=== PATIENT | female | born 1945 | race Caucasian/White ===

== ENCOUNTER 2018-11-01 06:39 | Day surgery (SDC) | payer OTHER ==
--- NOTE | 2018-10-31 11:49 | RAD REPORT ---
EXAM DESCRIPTION: Stella Gauthier (2 Views)10/31/2018 11:35 am CLINICAL HISTORY: Preop/cardiomegaly COMPARISON: 2017 FINDINGS: The lungs appear clear of acute infiltrate. The heart is mildly to moderately enlarged IMPRESSION: No acute abnormalities displayed
[2018-10-31 11:51] LABS: Potassium 3.7 mmol/L (3.5-5.1)
[2018-10-31 11:52] LABS: Absolute Lymphocytes (CBC) 1.3 K/uL (0.7-4.9); Absolute Monocytes 0.6 K/uL (0.1-1.3); Absolute Neutrophil 7.1 K/uL (1.8-8.0); Basophils % 0.6 % (0-1.3); Eosinophils % 3.5 % (0-4.4); Lymphocytes % 13.7 % (15.3-44.8); MPV 8.8 fL (7.6-11.3); Monocytes % 5.9 % (3.3-12.3); RBC Red Blood Cell Count 4.16 M/uL (3.86-4.86)
[2018-10-31 11:54] LABS: Protime INR 1.06
--- OUTSIDE RECORDS SUMMARY | 2018-11-01 06:41 | XMS REPORT ---
:1945 Author Organization [facility] Address [address] [place] [address] Care Team Providers Name Role Phone Unavailable Unavailable Unavailable Problems This patient has no known problems. Allergies, Adverse Reactions, Alerts This patient has no known allergies or adverse reactions. Medications This patient has no known medications.
[2018-11-01] MEDS ORDERED: HEPA 1000U/500MLS 2,000 UNIT/1,000 ML BAG IV ONE (07:17)
[2018-11-01] MEDS ORDERED: LIDOCAINE 1% MPF 30 ML VIAL ONE (07:17)
[2018-11-01] MEDS ORDERED: NA CHLORIDE 0.9% 500 ML ONE (07:35)
[2018-11-01] MEDS ORDERED: MIDAZOLAM HCL 2 MG/2 ML INJ ONE (08:14)
[2018-11-01] MEDS ORDERED: FENTANYL CITR 100 MCG/2 ML ONE ×2 (08:14→10:10)
[2018-11-01 09:09] VITALS: TEMP 97.9
[2018-11-01 12:49] VITALS: BP 116/50; O2SAT 97
--- NOTE | 2018-11-01 18:57 | OP ---
Surgeon: Zack Fuentes MD Family Doctor: Dr. Nichelle Escamilla. Procedure: Right and left carotid angiography. Indication: Abnormal carotid Doppler. Findings: Right and left carotid arteries have atherosclerotic changes with calcification and plaque , but much less than 50% stenosis. There is no indication for a stent or carotid endarterectomy. 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 She had gi vida us informed consent. Prepared and draped in usual sterile fashion. Right femoral artery was use d. The tissues around the artery were anesthetized with 1% lidocaine. The artery was entered using an 18-gauge needle, cannulated with a short J-wire and a 4-Albanian sheath was placed and flushed. We used a 4-Albanian sheath throughout the procedure. A JR4 coronary catheter was used to selectively can nulate right and left carotid arteries. Both arteries were angiogrammed in orthogonal views. When a decision was made for the course of treatment, catheters were withdrawn and the right femoral artery was angiogram via the sheath. Adequate anatomy was seen there, and we did a closure using an Angio- Seal device. There were no complications from it. Estimated Blood Loss: 5 cc. Photo Engraver: She Paredes. MELLISA/CANDIS Voice ID: [id number] Report ID: [id number]
== END 2018-11-01 12:40 | disposition home or self-care (01) ==
LOC: CCL 06:39
PROVIDERS: ATTEND Internal Medicine
DX: I65.23 Occlusion and stenosis of bilateral carotid arteries (principal); I48.0 Paroxysmal atrial fibrillation; I10 Essential (primary) hypertension; E11.9 Type 2 diabetes mellitus without complications; E78.5 Hyperlipidemia, unspecified; Z79.82 Long term (current) use of aspirin; Z79.4 Long term (current) use of insulin; Z79.51 Long term (current) use of inhaled steroids; Z79.899 Other long term (current) drug therapy; Z82.49 Family history of ischemic heart disease and other diseases of the circulatory system
CPT/HCPCS: 85025; 80048; 36415; 85610; 82962 ×2; 85730; 71046; 36222; C1893; C1760; J2250; J3010 ×2

== ENCOUNTER 2019-03-17 21:06 | Observation (INO) | payer OTHER ==
--- OUTSIDE RECORDS SUMMARY | 2019-03-17 21:09 | XMS REPORT ---
:1945 Author Organization [facility] Address [address] [place] [address] Care Team Providers Name Role Phone Unavailable Unavailable Unavailable Problems This patient has no known problems. Allergies, Adverse Reactions, Alerts This patient has no known allergies or adverse reactions. Medications This patient has no known medications.
--- OUTSIDE RECORDS SUMMARY | 2019-03-17 21:14 | XMS REPORT | Summary of Care ---
:1945 Author Organization [facility] Address [address] [place] [address] Care Team Providers Name Role Phone Nichelle Escamilla MD Primary Care Provider Michael Fontana MD Unavailable Zack Fuentes Unavailable Haseeb Cabrera DPM Unavailable Kendrick Le Unavailable Ian Dc Unavailable Remberto Su MD Unavailable Americo Arreaga MD Unavailable Reason for Visit Reason Comments Refill Request Encounter Details Date Type Department Care Team Description 03/15/2019 Refill [facility] Endocrinology- Jayden Mitchell MD Refill Request [address] Professional Office [phone] [address] [place] [address] Allergies Active Allergy Reactions Severity Noted Date Comments Ciprofloxacin Unknown - See comments 04/11/2018 Losartan Potassium Shortness of Breath, Cough High 03/22/2017 Metronidazole Unknown - See comments 04/11/2018 Macrolide Antibiotics Rash 06/11/2015 Penicillin Rash 06/11/2015 Pentoxifylline Itching, Shortness of Breath 01/15/2017 documented as of this encounter (statuses as of 03/15/2019) Medications Medication Sig Dispensed Refills Start Date End Date Status LANCETS (ACCU-CHEK 0 Active MULTICLIX LANCET MISC) aspirin (ASPIRIN LOW Take 81 mg by 0 Active DOSE) 81 mg EC tablet mouth daily. CINNAMON BARK Take 1,000 mg by 0 Active (CINNAMON ORAL) mouth. pramipexole (MIRAPEX) TAKE 1/2 TABLET 6 04/01/2016 Active 0.5 mg tablet EVERY MORNING AND 1 TABLET EVERY EVENING pravastatin TAKE 1 TABLET BY 5 04/05/2016 Active (PRAVACHOL) 40 mg MOUTH AT BEDTIME tablet latanoprost (XALATAN) Place 1 Drop in 0 Active 0.005 % ophthalmic both eyes every drops evening. DOCUSATE SODIUM Take by mouth. 0 Active (DULCOLAX STOOL SOFTENER, DSS, ORAL) MULTIVITAMIN WITH Take by mouth. 0 Active MINERALS (HAIR,SKIN AND NAILS ORAL) MULTIVITAMIN ORAL Take by mouth. 0 Active Radiance calcium, magnesium, zinc, prescribed by Dr. Dc. Insulin Use as directed 100 Syringe 11 03/22/2018 Active Syringe-Needle U-100 for diabetes, (BD INSULIN SYRINGE E11.9, inject self UF) 0.3 mL 30 gauge x daily. 1/2" SyrgIndications: Controlled type 2 diabetes mellitus without complication, with long-term current use of insulin metoprolol succinate TAKE 1 TABLET BY 3 04/12/2018 Active XL 50 mg 24 hr tablet MOUTH TWICE A DAY pyridoxine HCl, Take by mouth. 0 Active vitamin B6, (VITAMIN B-6 ORAL) POTASSIUM GLUCONATE Take by mouth. 0 Active ORAL nystatin 100,000 Apply to area(s) 15 g 3 06/08/2018 Active unit/gram 2 (two) times creamIndications: daily. Skin yeast infection SPIRONOLACTONE 50 mg TAKE 1 TABLET BY 90 tablet 3 09/13/2018 Active tabletIndications: MOUTH EVERY DAY Leg swelling FERROUS SULFATE 325 TAKE 1 TABLET BY 90 tablet 3 10/22/2018 Active mg (65 mg iron) MOUTH EVERY DAY tabletIndications: WITH BREAKFAST Iron deficiency OMEPRAZOLE 40 mg TAKE ONE CAPSULE 90 capsule 2 10/20/2018 Active capsuleIndications: BY MOUTH EVERY DAY Gastroesophageal reflux disease, esophagitis presence not specified LEVOTHYROXINE 25 mcg TAKE 1 TABLET BY 90 tablet 1 11/13/2018 Active tabletIndications: MOUTH EVERY DAY IN Hypothyroidism, THE MORNING unspecified type ACCU-CHEK PHILLIP Take sugars 1-2 200 Strip 11 11/10/2018 Active stripIndications: times a day, DX Uncontrolled type 2 E11.9 diabetes mellitus with hyperglycemia Insulin Portia, Use as directed, 100 Each 1 11/10/2018 Active Disposable, (BD once a day, INSULIN PEN NEEDLE DX:E11.9 UF) 29 gauge x 1/2" NdleIndications: Uncontrolled type 2 diabetes mellitus with hyperglycemia traMADOL 50 mg TAKE 1 TABLET BY 90 tablet 1 2018 Active tabletIndications: MOUTH EVERY 6 Neuropathy, Spinal HOURS NEEDED stenosis of cervical [facility] region, Itching NEUROPATHY PAIN IN FEET. Keep on file. montelukast Take 1 tablet by 90 tablet 3 2018 Active (SINGULAIR) 10 mg mouth at bedtime. tabletIndications: Allergic rhinitis, unspecified seasonality, unspecified trigger furosemide 80 mg Take 80 mg by 0 2018 Active tablet mouth 2 (two) times daily. cholestyramine light 1 scoop 3-4 times 239.4 g 3 2018 Active (CHOLESTYRAMINE a day. LIGHT) 4 gram powderIndications: Mold exposure fluticasone (FLONASE) Use 2 Sprays in 48 g 3 2018 Active 50 mcg/actuation each nostril nasal daily. sprayIndications: Chronic allergic rhinitis pregabalin (LYRICA) Take 1 in am and 2 90 capsule 3 01/30/2019 Active 150 mg at night. capsuleIndications: Neuropathy, Spinal stenosis of cervical region, Itching insulin degludec inject 65 Units 21 mL 3 02/02/2019 Active (TRESIBA FLEXTOUCH under the skin U-100) 100 unit/mL (3 every morning. mL) InPnIndications: Uncontrolled type 2 diabetes mellitus with hyperglycemia acetaminophen-codeine TAKE 1 TABLET BY 0 01/23/2019 Active 300-30 mg tablet MOUTH EVERY 4-6 HOURS NEEDED acetic acid 0.25 % WASH LEGS DAILY 1 01/25/2019 Active irrigation solution glimepiride 4 mg Take 1 tablet by 180 tablet 1 02/20/2019 Active tabletIndications: mouth 2 (two) Uncontrolled type 2 times daily. diabetes mellitus with hyperglycemia insulin degludec inject 65 Units 30 mL 2 03/15/2019 Active (TRESIBA FLEXTOUCH under the skin U-100) 100 unit/mL (3 daily. mL) InPnIndications: Uncontrolled type 2 diabetes mellitus with hyperglycemia documented as of this encounter (statuses as of 03/15/2019) Active Problems Problem Noted Date Excessive daytime sleepiness 07/05/2017 Controlled type 2 diabetes mellitus without complication, with long-term 11/13 current use of insulin Essential hypertension 06/26/2015 Hyperlipidemia 06/26/2015 Hypothyroidism (acquired) 06/26/2015 documented as of this encounter (statuses as of 03/15/2019) Immunizations Name Administration Dates Next Due Influenza High Dose 04/24/2018, 04/13/2017, 07/12/2016 Pneumococcal 13 Conjugate, PCV13 (Prevnar 07/12/2016 13) Pneumococcal Polysaccharide, PPSV23 10/03/2017, 06/19/2011, 05/05/2011 (PNEUMOVAX) Tdap 05/05/2011 documented as of this encounter Social History Tobacco Use Types Packs/Day Years Used Date Never Smoker Cigarettes Smokeless Tobacco: Never Used Alcohol Use Drinks/Week oz/Week Comments No 0 Standard drinks or equivalent 0.0 Sex Assigned at Date Recorded Not on file Job Start Date Occupation Industry Not on file Not on file Not on file Travel History Travel Start Travel End No recent travel history available. documented as of this encounter Last Filed Vital Signs Not on filedocumented in this encounter Plan of Treatment Date Type Specialty Care Team Description 03/15/2019 Office Visit Internal Medicine Nichelle Escamilla MD [address] [place] [address] Dr [address]en [address] [place] [address] [phone] 07/03/2019 Office Visit Endocrinology Diabetes & MitchellJayden MD Metabolism [address] [place] [address] [phone] Health Maintenance Due Date Last Done Comments Osteoporosis Screening 12/12/2011 EYE EXAM 12/13/2018 12/13/2017 (Previously completed), 03/01/2017 (Previously completed), 03/17/2016 (Previously completed) INFLUENZA VACCINE (#1) 2019 04/24/2018, 04/13/2017, 07/12/2016 URINE MICROALBUMIN 04/11/2019 04/11/2018, 04/06/2017, 06/14/2016 Zoster Recombinant Vaccine 06/08/2019 Postponed from (SHINGRIX) (1 of 2) 1996 (Insurance / Financial) MAMMOGRAM 07/12/2019 08/09/2016, 05/20/2010 Postponed from (Previously completed) 08/09/2017 (Alternative Guidelines) Medicare Wellness Visit 07/25/2019 Postponed from 12/12/2011 (Alternative Guidelines) FOOT EXAM 08/11/2019 08/11/2018, 08/11/2018, 05/09/2018, Additional history exists HgA1C 08/23/2019 02/20/2019, 11/10/2018, 08/11/2018, Additional history exists LDL-C 09/05/2019 09/04/2018, 07/05/2017, 04/06/2017, Additional history exists CREATININE (SERUM) 02/03/2020 02/02/2019, 01/03/2018, 07/05/2017, Additional history exists COLONOSCOPY 05/20/2020 05/20/2010 (Previously completed) DTaP,Tdap,and Td Vaccines 05/05/2021 05/05/2011 (2 - Td) HEPATITIS C (HCV) SCREEN Completed 04/06/2017 PNEUMOCOCCAL VACCINES 65+ Completed 10/03/2017, 07/12/2016, 06/19/2011, Additional history exists documented as of this encounter Results Not on filedocumented in this encounter Visit Diagnoses Diagnosis Uncontrolled type 2 diabetes mellitus with hyperglycemia documented in this encounter Insurance Payer Benefit Plan Subscriber ID Effective Phone Address Type / Group Dates MEDICARE MEDICARE xxxxxxxxxxx 2011-Pres [phone] Medicare PART A & B ent [id number] [place] [phone] [place] [id number] 2011-Pres [place] Supplement documented as of this encounter
--- OUTSIDE RECORDS SUMMARY | 2019-03-17 21:14 | XMS REPORT | Summary of Care ---
:1945 Author Organization [facility] Address [address] [place] [address] Care Team Providers Name Role Phone Nichelle Escamilla MD Primary Care Provider Michael Fontana MD Unavailable Zack Fuentes Unavailable Haseeb Cabrera DPM Unavailable Kendrick Le Unavailable Ian Dc Unavailable Remberto Su MD Unavailable Americo Arreaga MD Unavailable Reason for Visit Reason Comments Notification Encounter Details Date Type Department Care Team Description 03/14/2019 Telephone [facility] Family Nichelle Escamilla, Notification [facility] [address] [place] [address] [place] [address] [employer], [place] [address] Allergies Active Allergy Reactions Severity Noted Date [...] Gastroesophageal reflux disease, esophagitis presence not specified ACCU-CHEK PHILLIP Take sugars 1-2 200 Strip 11 11/10/2018 Active stripIndications: times a day, DX Uncontrolled type 2 E11.9 diabetes mellitus with hyperglycemia Insulin Peck, Use as directed, 100 Each 1 11/10/2018 Active Disposable, (BD once a day, INSULIN PEN NEEDLE DX:E11.9 UF) 29 gauge x 1/2" NdleIndications: Uncontrolled type 2 diabetes mellitus with hyperglycemia traMADOL 50 mg TAKE 1 TABLET BY 90 tablet 1 2018 Active tabletIndications: MOUTH EVERY 6 Neuropathy, Spinal HOURS NEEDED stenosis of cervical FOR [facility] region, Itching NEUROPATHY PAIN IN FEET. Keep [...] nostril nasal daily. sprayIndications: Chronic allergic rhinitis insulin degludec inject 65 Units 21 mL [...] 2 times daily. diabetes mellitus with hyperglycemia documented as of [...] Treatment Date Type Specialty Care Team Description 04/06/2019 Office Visit Vascular Surgery Constance Stone MD [address] [place] [phone] 05/25/2019 Office Visit Internal Medicine Nichelle Escamilla MD [address] [place] [address] Dr [address]en [address] [place] [id number] 07/03/2019 Office Visit Endocrinology Diabetes & MitchellJayden MD [address] [phone] Health Maintenance Due Date Last Done Comments Osteoporosis Screening 12/12/2011 INFLUENZA VACCINE (#1) 2019 04/24/2018, 04/13/2017, 07/12/2016 [...] 02/03/2020 02/02/2019, 01/03/2018, 07/05/2017, Additional history exists EYE EXAM 02/28/2020 02/27/2019, 12/13/2017 (Previously completed), 03/01/2017 (Previously completed), Additional history exists COLONOSCOPY 05/20/2020 05/20/2010 (Previously completed) DTaP,Tdap,and Td Vaccines 05/05/2021 05/05/2011 (2 - Td) HEPATITIS C (HCV) SCREEN Completed 04/06/2017 PNEUMOCOCCAL VACCINES 65+ Completed 10/03/2017, 07/12/2016, 06/19/2011, Additional history exists documented as of this encounter Results Not on filedocumented in this encounter Insurance Payer Benefit Plan Subscriber ID Effective Phone Address Type / Group Dates MEDICARE MEDICARE xxxxxxxxxxx 2011-Pres [phone] Medicare PART A & B ent [id number] [place] [phone] [place] [place] [id number] 2011-Pres Medicare SAM[employer] PABLO ent Supplement documented as of this encounter
--- OUTSIDE RECORDS SUMMARY | 2019-03-17 21:14 | XMS REPORT | Summary of Care ---
:1945 Author Organization [facility] Address [address] [place], [place] [id number] Care Team Providers Name Role Phone Nichelle Escamilla MD Primary Care Provider Michael Fontana MD Unavailable Zack Fuentes Unavailable Haseeb Cabrera DPM Unavailable Kendrick Le Unavailable Ian Dc Unavailable Remberto Su MD Unavailable Americo Arreaga MD Unavailable Encounter Details Date Type Department Care Team Description 03/15/2019 Orders Only [facility] Doctor Unassigned, No [address] [facility] [place] [address] [address] [place] [address] Allergies Active Allergy Reactions Severity Noted Date [...] 2 E11.9 diabetes mellitus with hyperglycemia Insulin Addison, Use as directed, 100 Each 1 11/10/2018 [...] Office Visit Internal Medicine Nichelle Escamilla MD [address] [place] [address] [id number] 07/03/2019 Office Visit Endocrinology Diabetes & MitchellJayden MD Metabolism [address] [place] [address] [phone] Health Maintenance Due Date Last Done Comments [...] history exists documented as of this encounter Procedures Procedure Name Priority Date/Time Associated Diagnosis Comments NOTICE OF BILLING Routine 03/15/2019 12:10 PM CDT PRACTICES FOR MEDICARE PATIENTS documented in this encounter Results Not on filedocumented in this encounter Insurance Payer Benefit Plan Subscriber ID Effective Phone Address Type / Group Dates MEDICARE MEDICARE xxxxxxxxxxx 2011-Pres [phone] Medicare PART A & B ent [id number] [place] [phone] [place] [id number] 2011-Pres Medicare [place] Supplement documented as of this encounter
[2019-03-17] MEDS ORDERED: ACETAMINOPHEN 500 MG TAB ONE (22:52)
[2019-03-17 23:44] LABS: Absolute Lymphocytes (CBC) 1.8 K/uL (0.7-4.9); Basophils % 0.8 % (0-1.3); Hematocrit 31.6 % (36.0-45.0); Lymphocytes % 10.4 % (15.3-44.8); MPV 8.9 fL (7.6-11.3); Protime INR 1.04; RBC Red Blood Cell Count 3.99 M/uL (3.86-4.86)
[2019-03-17] MEDS ORDERED: FENTANYL CITR 100 MCG/2 ML ONE (23:49)
[2019-03-18] MEDS ORDERED: VANCOMYCIN 1 GM/VIAL ONE ×2 (00:32→06:30)
[2019-03-18] MEDS ORDERED: NA CHLORIDE 0.9% 250 ML ONE ×2 (00:32→06:19)
[2019-03-18] MEDS ORDERED: Levofloxacin500mg IV 500 MG/100 ML BAG IV ONE (00:33)
--- NOTE | 2019-03-18 01:18 | ER ---
Nurse's Notes [facility] Name: Stephany Bran Age: 73 yrs Sex: Female : 1945 Arrival Date: 03/17/2019 Time: 21:31 Bed 20 Private MD: Diagnosis: Cellulitis of left lower limb;Cellulitis of right lower limb Presentation: 03/17 21:52 Presenting complaint: Patient states: Reports swelling and pain to ace lower ea extremities, reports she has seen the physician for diabetic neuropathy. Transition of care: patient was not received from another setting of care. Onset of symptoms was March 17, 2019. Risk Assessment: Do you want to hurt yourself or someone else? Patient reports no desire to harm self or others. Initial Sepsis Screen: Does the patient meet any 2 criteria? HR > 90 bpm. No. Patient's initial sepsis screen is negative. Does the patient have a suspected source of infection? No. Patient's initial sepsis screen is negative. Care prior to arrival: None. 21:52 Method Of Arrival: Wheelchair ea 21:52 Acuity: NGA 3 ea Triage Assessment: 21:54 General: Appears uncomfortable, Behavior is calm, cooperative, appropriate for age. ea Pain: Complains of pain in right leg and left leg. Derm: swelling to ace lower extremities. Historical: - Allergies: 21:56 Losartan; ea 21:56 PENICILLINS; ea 21:56 pentoxifylline; ea 21:56 METRONIDAZOLE; ea 21:56 Ciprofloxacin; ea 03/18 00:03 MACROLIDES; jb4 - PMHx: 03/17 21:56 Bronchitis; Diabetes - NIDDM; Hyperlipidemia; Hypertension; Hypothyroidism; ea - PSHx: 21:56 Hysterectomy; Tonsillectomy; cataract surgery; growth on tendon of left foot removal; ea - Immunization history:: Adult Immunizations up to date. - Social history:: Smoking status: Patient/guardian denies using tobacco. - Ebola Screening: : No symptoms or risks identified at this time. Screenin:54 Abuse screen: Denies threats or abuse. Nutritional screening: No deficits noted. ea Tuberculosis screening: No symptoms or risk factors identified. Fall Risk None identified. Assessment: 21:40 General: Appears in no apparent distress. uncomfortable, Behavior is calm, cooperative, jb4 appropriate for age. Pain: Complains of pain in right leg and left leg Pain does not radiate. Pain currently is 10 out of 10 on a pain scale. Quality of pain is described as burning, stabbing, throbbing. Neuro: Level of Consciousness is awake, alert, obeys commands, Oriented to person, place, time, situation. Cardiovascular: Patient's skin is warm and dry. Respiratory: Airway is patent Respiratory effort is even, unlabored, Respiratory pattern is regular, symmetrical. GI: No deficits noted. No signs and/or symptoms were reported involving the gastrointestinal system. : No deficits noted. No signs and/or symptoms were reported regarding the genitourinary system. EENT: No deficits noted. No signs and/or symptoms were reported regarding the EENT system. Derm: Skin is pink, warm \T\ dry. Wound noted right leg and left leg weeping noted to ACE lower legs. Musculoskeletal: Circulation, motion, and sensation intact. Range of motion: intact in all extremities. 23:00 Reassessment: Patient appears in no apparent distress at this time. No changes from jb4 previously documented assessment. Patient and/or family updated on plan of care and expected duration. Pain level reassessed. 23:45 Reassessment: PT reports being in extreme pain, provider notified, provider and student jb4 APPAREL MANAGER to the bedside. See MAR for orders. 23:55 Reassessment: Patient appears in no apparent distress at this time. Patient and/or jb4 family updated on plan of care and expected duration. Pain level reassessed. Patient is alert, oriented x 3, equal unlabored respirations, skin warm/dry/pink. Pt reports decrease in pain after fentanyl administration. 03/18 00:30 Reassessment: PT reports being cold, given 2 warm blankets. jb4 01:00 Reassessment: Patient appears in no apparent distress at this time. Patient and/or jb4 family updated on plan of care and expected duration. Pain level reassessed. Patient is alert, oriented x 3, equal unlabored respirations, skin warm/dry/pink. 01:25 Reassessment: PT reports increase in pain provider notified, See MAR for orders. jb4 Provider and student APPAREL MANAGER to the bedside to explain plan of care. Reports being cold, given 2 warm blankets. 02:02 Reassessment: Patient appears in no apparent distress at this time. Patient and/or jb4 family updated on plan of care and expected duration. Pain level reassessed. Patient is alert, oriented x 3, equal unlabored respirations, skin warm/dry/pink. 03:30 Reassessment: Patient appears in no apparent distress at this time. Patient and/or jb4 family updated on plan of care and expected duration. Pain level reassessed. Patient is alert, oriented x 3, equal unlabored respirations, skin warm/dry/pink. PT reports being upset that she has not yet been transferred to her room upstairs, and reports that the primary nurse was the only one to enter the room. Pt informed that report had been called and ED staff is preparing to transfer her upstairs. Provider notified of patients concerns and returned to the room to further explain. Vital Signs: 03/17 21:53 BP 123 / 49; Pulse 95; Resp 20; Temp 100.2; Pulse Ox 98% on R/A; Weight 123.83 kg; ea Height 5 ft. 7 in. (170.18 cm); 23:45 BP 111 / 74; Pulse 96; Resp 17; Pulse Ox 93% on R/A; jb4 03/18 00:45 BP 144 / 63; Pulse 104; Resp 16; Pulse Ox 97% on R/A; jb4 02:00 BP 122 / 72; Pulse 98; Resp 16; Temp 98.7(O); Pulse Ox 97% on R/A; jb4 03:15 BP 104 / 49; Pulse 100; Resp 17; Pulse Ox 96% on R/A; jb4 03/17 21:53 Body Mass Index 42.76 (123.83 kg, 170.18 cm) ED Course: 03/17 21:31 Patient arrived in ED. ag3 21:53 Triage completed. ea 22:02 Robert Contreras PA is PHCP. jr8 22:02 Charles Gupta MD is Attending Physician. jr8 22:26 Michael Silveira, CHRISSY is Primary Nurse. jb4 23:00 Inserted saline lock: 20 gauge in left antecubital area, using aseptic technique. Blood jb4 collected. 23:00 Initial lab(s) drawn, by ri, sent to lab. First set of blood cultures drawn by me. jb4 23:15 Second set of blood cultures drawn by me. jb4 23:30 Patient maintains SpO2 saturation greater than 95% on room air. jp3 23:30 Patient has correct armband on for positive identification. Bed in low position. Call jp3 light in reach. Side rails up X 1. Side rails up X2. Warm blanket given. Pillow given. Verbal reassurance given. bus driver/monitor on. Pulse ox on. NIBP on. 23:30 Arm band placed on right wrist. jb4 23:34 Basic Metabolic Panel Sent. jb4 23:34 Blood Culture Adult (2) Sent. jb4 23:34 CBC with Diff Sent. jb4 23:34 CPK Sent. jb4 23:34 Lactate Sent. jb4 23:34 LFT's Sent. jb4 23:34 Procalcitonin Sent. jb4 23:34 Protime (+inr) Sent. jb4 23:34 Ptt, Activated Sent. jb4 23:34 Troponin (emerg Dept Use Only) Sent. [facility] 03/18 01:15 Sam Lynn MD is Hospitalizing Provider. [facility] 03:30 No provider procedures requiring assistance completed. Patient admitted, IV remains in [facility] place. Administered Medications: 03/17 23:00 Drug: Acetaminophen 1000 mg Route: PO; [facility] 03/18 02:06 Follow up: Response: No adverse reaction; Temperature is decreased [facility] 03/17 23:53 Drug: fentaNYL (PF) 50 mcg {Note: Rass score 1.} Route: IVP; Site: left antecubital; [facility] 03/18 00:00 Follow up: Response: No adverse reaction; Pain is decreased [facility] 00:44 Drug: LevaQUIN 500 mg Volume: 100 ml; Route: IVPB; Infused Over: 60 mins; Site: left [facility] antecubital; 01:44 Follow up: Response: No adverse reaction; IV Status: Completed infusion; IV Intake: jb4 100ml 01:35 Drug: fentaNYL (PF) 50 mcg Route: IVP; Site: left antecubital; [facility] 02:00 Follow up: Response: No adverse reaction; RASS: Alert and Calm (0) [facility] 02:05 Drug: vancoMYCIN 1 grams Route: IVPB; Infused Over: 2 hrs; Site: left antecubital; [facility] 03:30 Follow up: Response: No adverse reaction; IV Status: Infusion continued upon admission [facility] Point of Care Testing: Blood Glucose: 03/17 23:30 Blood Glucose: 411 mg/dL; jp3 Ranges: Intake: 03/18 01:44 IV: 100ml; Total: 100ml. jb4 Outcome: 01:16 Decision to Hospitalize by Provider. anamika 03:30 Admitted to Med/surg accompanied by marcial, via stretcher, room 231, with chart, Report jb4 called to CHRISSY Hines 03:30 Condition: stable 03:30 Discharge instructions given to patient, Instructed on the need for admit, Demonstrated understanding of instructions. 04:17 Patient left the ED. jb4 Signatures: Robert Contreras PA PA jrMichael Kenyon, RN RN jb4 Brittany Uriarte RN RN Alex Sharma jp3 Patricia Frost3 Corrections: (The following items were deleted from the chart) 00:03 03/17 21:56 Allergies: mycins; ricmhond lentz 03/18 02:07 02:00 BP 122 / 72; Pulse 98bpm; Resp 16bpm; Pulse Ox 97% RA; jb4 jb4
--- NOTE | 2019-03-18 01:19 | EDPHYS ---
Physician Documentation [facility] Name: Stephany Bran Age: 73 yrs Sex: Female : 1945 Arrival Date: 03/17/2019 Time: 21:31 Bed 20 Private MD: ED Physician Charles Gupta HPI: 03/17 23:42 This 73 yrs old Female presents to ER via Wheelchair with complaints of jr8 SWOLLEN LEGS. 23:42 The patient presents with pain, swelling, tenderness. The complaints affect the right jr8 leg and left leg. Onset: The symptoms/episode began/occurred gradually. Modifying factors: The symptoms are alleviated by nothing. the symptoms are aggravated by movement, weight bearing. Associated signs and symptoms: Pertinent positives: fever. Severity of symptoms: At their worst the symptoms were moderate, in the emergency department the symptoms are unchanged. It is unknown whether or not the patient has had similar symptoms in the past. The patient has not recently seen a physician. 23:43 Patient has history of venous stasis and lymphedema. Stated that her legs are normally jr8 swollen but had been doing well lately. Stated that over the past several days has worsened and now seeping fluid and with fever . Historical: - Allergies: 21:56 Losartan; ea 21:56 PENICILLINS; ea 21:56 pentoxifylline; ea 21:56 METRONIDAZOLE; ea 21:56 Ciprofloxacin; ea 03/18 00:03 MACROLIDES; jb4 - PMHx: 03/17 21:56 Bronchitis; Diabetes - NIDDM; Hyperlipidemia; Hypertension; Hypothyroidism; ea - PSHx: 21:56 Hysterectomy; Tonsillectomy; cataract surgery; growth on tendon of left foot removal; ea - Immunization history:: Adult Immunizations up to date. - Social history:: Smoking status: Patient/guardian denies using tobacco. - Ebola Screening: : No symptoms or risks identified at this time. ROS: 23:43 Eyes: Negative for injury, pain, redness, and discharge, ENT: Negative for injury, jr8 pain, and discharge, Neck: Negative for injury, pain, and swelling, Cardiovascular: Negative for chest pain, palpitations, and edema, Respiratory: Negative for shortness of breath, cough, wheezing, and pleuritic chest pain, Abdomen/GI: Negative for abdominal pain, nausea, vomiting, diarrhea, and constipation, Back: Negative for injury and pain, Neuro: Negative for headache, weakness, numbness, tingling, and seizure. 23:43 MS/extremity: Positive for erythema, pain, swelling, tenderness, of the right leg and left leg. Exam: 23:43 Eyes: Pupils equal round and reactive to light, extra-ocular motions intact. Lids and jr8 lashes normal. Conjunctiva and sclera are non-icteric and not injected. Cornea within normal limits. Periorbital areas with no swelling, redness, or edema. ENT: Nares patent. No nasal discharge, no septal abnormalities noted. Tympanic membranes are normal and external auditory canals are clear. Oropharynx with no redness, swelling, or masses, exudates, or evidence of obstruction, uvula midline. Mucous membranes moist. Neck: Trachea midline, no thyromegaly or masses palpated, and no cervical lymphadenopathy. Supple, full range of motion without nuchal rigidity, or vertebral point tenderness. No Meningismus. Cardiovascular: Regular rate and rhythm with a normal S1 and S2. No gallops, murmurs, or rubs. Normal PMI, no JVD. No pulse deficits. Respiratory: Lungs have equal breath sounds bilaterally, clear to auscultation and percussion. No rales, rhonchi or wheezes noted. No increased work of breathing, no retractions or nasal flaring. Abdomen/GI: Soft, non-tender, with normal bowel sounds. No distension or tympany. No guarding or rebound. No evidence of tenderness throughout. Back: No spinal tenderness. No costovertebral tenderness. Full range of motion. Skin: Warm, dry with normal turgor. Normal color with no rashes, no lesions. 23:43 Musculoskeletal/extremity: Extremities: grossly normal except: noted in the right and left lower extremities : Patient has 2 + pitting edema to lower extremities with ozzing. Erythema to both legs but not warm to touch. Tender to palpation , ROM: intact in all extremities, Circulation is intact in all extremities. Sensation intact. Vital Signs: 21:53 BP 123 / 49; Pulse 95; Resp 20; Temp 100.2; Pulse Ox 98% on R/A; Weight 123.83 kg; ea Height 5 ft. 7 in. (170.18 cm); 23:45 BP 111 / 74; Pulse 96; Resp 17; Pulse Ox 93% on R/A; jb4 09/15 00:45 BP 144 / 63; Pulse 104; Resp 16; Pulse Ox 97% on R/A; jb4 02:00 BP 122 / 72; Pulse 98; Resp 16; Temp 98.7(O); Pulse Ox 97% on R/A; 4 03:15 BP 104 / 49; Pulse 100; Resp 17; Pulse Ox 96% on R/A; 4 03/17 21:53 Body Mass Index 42.76 (123.83 kg, 170.18 cm) ea MDM: 03/17 22:12 Patient medically screened. [facility] 03/18 01:15 Data reviewed: vital signs, nurses notes, lab test result(s), radiologic studies, plain [facility] films. Data interpreted: Pulse oximetry: on room air is 94 %. Interpretation: acceptable. Counseling: I had a detailed discussion with the patient and/or guardian regarding: the historical points, exam findings, and any diagnostic results supporting the discharge/admit diagnosis, lab results, radiology results, the need for further work-up and treatment in the hospital. 03/17 22:25 Order name: Basic Metabolic Panel [facility] 03/17 22:25 Order name: Blood Culture Adult (2) [facility] 03/17 22:25 Order name: CBC with Diff [facility] 03/17 22:25 Order name: CPK [facility] 03/17 22:25 Order name: Lactate [facility] 03/17 22:25 Order name: LFT's [facility] 03/17 22:25 Order name: Procalcitonin [facility] 03/17 22:25 Order name: Protime (+inr) [facility] 03/17 22:25 Order name: Ptt, Activated [facility] 03/17 22:25 Order name: Troponin (emerg Dept Use Only) [facility] 03/17 22:25 Order name: Urine Microscopic Only [facility] 03/17 23:32 Order name: Glucose, Ancillary Testing; Complete Time: 23:31 EDMS 03/17 23:51 Order name: CBC with Automated Diff; Complete Time: 23:52 EDMS 03/17 23:51 Order name: Protime (+INR); Complete Time: 23:52 EDMS 03/17 22:25 Order name: Chest Single View XRAY [facility] 03/17 23:51 Order name: PTT, Activated Partial Thromb; Complete Time: 23:52 EDMS 03/17 23:59 Order name: Lactate; Complete Time: 00:00 EDMS 03/18 01:19 Order name: Procalcitonin; Complete Time: 01:33 EDMS 03/18 02:14 Order name: Basic Metabolic Panel; Complete Time: 02:29 EDMS 03/18 02:14 Order name: Liver (Hepatic) Function; Complete Time: 02:29 EDMS 03/18 02:14 Order name: Creatine Phosphokinase; Complete Time: 02:29 EDMS 03/18 02:14 Order name: Troponin (Emerg Dept Use Only); Complete Time: 02:29 EDMS 03/18 02:20 Order name: Urine Dipstick--Ancillary (enter results) ar5 03/18 03:04 Order name: Urine Microscopic Only; Complete Time: 03:32 EDMS 03/18 03:04 Order name: Urine Dipstick-Ancillary; Complete Time: 03:32 MS 03/17 22:25 Order name: Accucheck; Complete Time: 23:34 [facility] 03/17 22:25 Order name: Cardiac monitoring; Complete Time: 23:34 03/17 22:25 Order name: EKG - Nurse/Tech; Complete Time: 23:34 03/17 22:25 Order name: IV Saline Lock - Large Bore; Complete Time: 23:34 [facility] 03/17 22:25 Order name: Labs collected and sent; Complete Time: 23:34 03/17 22:25 Order name: O2 Per Protocol; Complete Time: 23:34 [facility] 03/17 22:25 Order name: O2 Sat Monitoring; Complete Time: 23:33 03/17 22:25 Order name: Urine Dipstick-Ancillary (obtain specimen); Complete Time: 23:33 Administered Medications: 03/17 23:00 Drug: Acetaminophen 1000 mg Route: PO; 03/18 02:06 Follow up: Response: No adverse reaction; Temperature is decreased 03/17 23:53 Drug: fentaNYL (PF) 50 mcg {Note: Rass score 1.} Route: IVP; Site: left antecubital; 03/18 00:00 Follow up: Response: No adverse reaction; Pain is decreased 00:44 Drug: LevaQUIN 500 mg Volume: 100 ml; Route: IVPB; Infused Over: 60 mins; Site: left jb4 antecubital; 01:44 Follow up: Response: No adverse reaction; IV Status: Completed infusion; IV Intake: jb4 100ml 01:35 Drug: fentaNYL (PF) 50 mcg Route: IVP; Site: left antecubital; jb4 02:00 Follow up: Response: No adverse reaction; RASS: Alert and Calm (0) jb4 02:05 Drug: vancoMYCIN 1 grams Route: IVPB; Infused Over: 2 hrs; Site: left antecubital; jb4 03:30 Follow up: Response: No adverse reaction; IV Status: Infusion continued upon admission jb4 Point of Care Testing: Blood Glucose: 03/17 23:30 Blood Glucose: 411 mg/dL; jp3 Ranges: Critical Glucose Levels:Adult <50 mg/dl or >400 mg/dl <40 mg/dl or >180 mg/dl Disposition: 03/18 06:27 Co-signature as Attending Physician, Charles Gupta MD. rn Disposition: 03/18/19 01:16 Hospitalization ordered by Sam Lynn for Inpatient Admission. Preliminary diagnosis are Cellulitis of left lower limb, Cellulitis of right lower limb. - Bed requested for Telemetry/MedSurg (Inpatient). - Status is Inpatient Admission. jb4 - Condition is Stable. - Problem is new. - Symptoms have improved. UTI on Admission? No Signatures: Dispatcher [employer] EDMS Claudine Bustos RN CHRISSY Charles Gupta MD MD rn Roszak, Josh, PA PA jr8 Michael Silveira RN RN jbBrittany Wall RN RN ea Corrections: (The following items were deleted from the chart) 00:03 03/17 21:56 Allergies: mycins; ea jb4 03/18 01:35 01:16 Hospitalization Ordered by Sam Lynn MD for Inpatient Admission. Preliminary diagnosis is Cellulitis of left lower limb; Cellulitis of right lower limb. Bed requested for Telemetry/MedSurg (Inpatient). Status is Inpatient Admission. Condition is Stable. Problem is new. Symptoms have improved. UTI on Admission? No. jr8 04:17 01:35 03/18/2019 01:16 Hospitalization Ordered by Sam Lynn MD for Inpatient jb4 Admission. Preliminary diagnosis is Cellulitis of left lower limb; Cellulitis of right lower limb. Bed requested for Telemetry/MedSurg (Inpatient). Status is Inpatient Admission. Condition is Stable. Problem is new. Symptoms have improved. UTI on Admission? No. mw
[2019-03-18] MEDS ORDERED: VANCOMYCIN 2 GM in NA CHLORIDE 0.9% 500 ML IV SCH (02:00)
[2019-03-18 02:13] LABS: ALT/SGPT 22 U/L (12-78); AST/SGOT 12 U/L (15-37); Albumin 2.7 g/dL (3.4-5.0); Alkaline Phosphatase 63 U/L (45-117); BUN Blood Urea Nitrogen 23 mg/dL (7-18); Bicarbonate 29 mmol/L (21-32); Bilirubin Direct < 0.1 mg/dL (0-0.2); Bilirubin Total 0.4 mg/dL (0.2-1.0); Creatine Phosphokinase 186 U/L (26-192); Glucose Level 345 mg/dL (74-106); Potassium 4.1 mmol/L (3.5-5.1); Protein, Total 7.3 g/dL (6.4-8.2); Sodium Level 136 mmol/L (136-145); Troponin (Emerg Dept Use Only) < 0.02 ng/mL (0.0-0.045)
[2019-03-18] MEDS ORDERED: HYDROCORTISONE SUC 100 MG INJ IV ONE (02:27)
[2019-03-18] MEDS ORDERED: ONDANSETRON 4 MG/2 ML VIAL IV PRN (02:27)
[2019-03-18] MEDS ORDERED: VANCOMYCIN/NS 1 gm 1 GM/250 ML BAG IVPB SCH (02:30)
[2019-03-18 02:38] LABS: Urine Bacteria <20 /HPF (<20); Urine Culture Reflex Order NOT NEEDED; Urine RBC <5 /HPF (NONE SEEN)
[2019-03-18 02:40] LABS: Urine Blood NEGATIVE (NEG); Urine Glucose 2+ (NEG); Urine Protein NEGATIVE (NEG)
[2019-03-18] MEDS ORDERED: GLUCAGON 1 MG/VIAL IM PRN ×2 (03:28→12:09)
[2019-03-18] MEDS ORDERED: D50W 25 GM/50 ML SYRINGE IV PRN ×2 (03:28→12:09)
[2019-03-18 04:17] VITALS: BMI 42.7
[2019-03-18 04:28] VITALS: O2SAT 97
[2019-03-18] MEDS: MORPHINE 4 MG/ML SYR IV PRN ×3 (05:19→21:24)
[2019-03-18] MEDS ORDERED: VANCOMYCIN 1 GM/250 ML BAG IV SCH (06:00)
[2019-03-18] MEDS ORDERED: CLINDAMYCIN INJ 600 MG in NA CHLORIDE 0.9% 50 ML IV SCH (06:00)
[2019-03-18] MEDS ORDERED: INSULIN GLARGINE 100 UNITS/ML SQ ONE (06:00)
[2019-03-18] MEDS ORDERED: NA CHLORIDE 0.9% 50 ML ONE (06:19)
[2019-03-18] MEDS ORDERED: CLINDAMYCIN IV 150 MG/ML (6 mL) VIAL ONE (06:22)
[2019-03-18] MEDS ORDERED: LEVOTHYROXINE SOD 0.05 MG TABLET PO SCH (06:30)
[2019-03-18] MEDS ORDERED: ALBUMIN HUMAN 25% 100 ML IV ONE (06:30)
[2019-03-18] MEDS: FUROSEMIDE 40 MG/4 ML VIAL IV SCH ×3 (09:00→17:14)
[2019-03-18] MEDS ORDERED: LATANOPROST OP SCH (09:00)
--- NOTE | 2019-03-18 09:24 | P.HP ---
Certification for Inpatient Patient admitted to: Inpatient With expected LOS: >2 Midnights Patient will require the following post-hospital care: None Practitioner: I am a practitioner with admitting privileges, knowledge of patient current condition, hospital course, and medical plan of care. Services: Services provided to patient in accordance with Admission requirements found in Title 42 Section 412.3 of the Code of Federal Regulations Patient History Date of Service: 03/18/19 Reason for admission: LOWER EXTREMITY ERYTHEMA AND EDEMA History of Present Illness: Patient is a 73-year-old female who comes into the hospital with erythema of the right lower extremity. She has also noticed some swelling in the region. She came to the ER for further evaluation. She has been having some pain and tenderness as well. She states that her has been trying to get her into the hospital for the last couple of days but she was not want to be admitted to the hospital. However, her pain got so severe that she decided to come in for further evaluation. She has wound healing Center treatment at [facility] wound healing [facility]. She sees a Dr. 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 At this time, she will need IV antibiotic therapy. She will be admitted for further evaluation. Allergies ciprofloxacin Allergy (Verified 03/18/19 05:46) Hallucinations erythromycin base Allergy (Verified 10/31/18 11:10) Itching/Hives/Rash losartan Allergy (Verified 03/18/19 04:36) Hallucinations Macrolide Antibiotics Allergy (Verified 03/18/19 05:46) Itching/Hives/Rash metronidazole [From Flagyl] Allergy (Verified 03/18/19 05:46) Itching/Hives/Rash Penicillins Allergy (Verified 10/31/18 11:10) Itching/Hives/Rash pentoxifylline Allergy (Verified 03/18/19 05:46) Itching/Hives/Rash Home Medications: Spironolactone 25 mg PO DAILY 04/11/17 Acetic Acid 0.25% [Acetic Acid 0.25%*] 1 appl IR DAILY 03/18/19 Aspirin Chewable [Aspirin Chewable*] 81 mg PO DAILY 03/18/19 Bisacodyl [Dulcolax] 5 mg PO DAILYPRN PRN 03/18/19 Cinnamon Bark [Cinnamon] 1,000 mg PO DAILY 03/18/19 Codeine/APAP [Tylenol W/Codeine #3 tab] 1 tab PO Q4HP PRN 03/18/19 Ferrous Sulfate [Feosol] 325 mg PO DAILY 03/18/19 Fluticasone [Flonase 50mcg Nasal [place]] 2 sprays NS DAILY 03/18/19 Furosemide 80 mg PO BIDL 03/18/19 Insulin Degludec [Tresiba Flextouch U-100] 65 unit SQ DAILY 03/18/19 Latanoprost/Pf [Latanoprost 0.005% Eye Drop] 1 gtt EACH EYE BEDTIME 03/18/19 Levothyroxine Sodium 25 mcg PO DAILY 03/18/19 Metoprolol Succinate [Toprol Xl] 50 mg PO BID 03/18/19 Montelukast [Singulair] 10 mg PO BEDTIME 03/18/19 Multivitamin [Daily Multiple Vitamin] 1 each PO DAILY 03/18/19 Mv,[place],Iron,Mn/Folic Acid/Chol [Hair, Skin and Nails Capsule] 1 each PO DAILY Nystatin Cream [Mycostatin 100MU/Gm Cream] 1 appl TOP BIDP PRN 03/18/19 Omeprazole [Prilosec] 40 mg PO DAILY 03/18/19 Pramipexole [Mirapex] 0.25 mg PO DAILY 03/18/19 Pramipexole [Mirapex] 0.5 mg PO BEDTIME 03/18/19 Pravastatin Sodium 40 mg PO BEDTIME 03/18/19 Pregabalin [Lyrica] 300 mg PO BID 03/18/19 Tramadol HCl [Ultram] 50 mg PO Q6HP PRN 03/18/19 - Past Medical/Surgical History Has patient received pneumonia vaccine in the past: Yes Diabetic: Yes -: Pneumonia -: DM -: HTN -: HLD -: Hypothyroidism -: Neuropathy -: Glaucoma -: Atrial Fibrillation -: EYE SX -: CERVICAL SPINE -: HYSTERECTOMY -: APPENDECTOMY -: FOOT SX - Family History Mother Medical History: Cancer Notes: stomach and intestinal cancer Father Medical History: Heart disease - Social History Smoking Status: Never smoker Alcohol use: No CD- Drugs: No Caffeine use: Yes Place of Residence: Home Review of Systems 10-point ROS is otherwise unremarkable Physical Examination - Vital Signs Temperature: 97.6 F Blood Pressure: 138/65 Pulse: 102 Respirations: 16 Pulse Ox (%): 97 - Physical Exam General: Alert, In no apparent distress, Oriented x3 HEENT: Atraumatic, PERRLA, Mucous membr. moist/pink, EOMI, Sclerae nonicteric Neck: Supple, 2+ carotid pulse no bruit, No LAD, Without JVD or thyroid abnormality Respiratory: Clear to auscultation bilaterally, Normal air movement Cardiovascular: Regular rate/rhythm, Normal S1 S2 Gastrointestinal: Normal bowel sounds, Soft and benign, Non-distended, No tenderness Musculoskeletal: Erythema, Tenderness Integumentary: Tenderness/swelling, Erythema, Warmth Neurological: Normal gait, Normal speech, Normal strength at 5/5 x4 extr, Normal tone, Sensation intact, Cranial nerves 3-12 intact, Normal affect Lymphatics: No axilla or inguinal lymphadenopathy - Studies Laboratory Data (last 24 hrs) 03/18/19 01:12: Sodium 136, Potassium 4.1, BUN 23 H, Creatinine 1.33 H, Glucose 345 H, Total Bilirubin 0.4, AST 12 L, ALT 22, Alkaline Phosphatase 63 03/17/19 23:00: PT 12.2, INR 1.04, APTT 26.0 03/17/19 23:00: WBC 17.1 H, Hgb 10.3 L, Hct 31.6 L, Plt Count 379 Assessment & Plan - Problems (Diagnosis) (1) Cellulitis of leg, right Current Visit: Yes Status: Acute (2) Diabetes Current Visit: No Status: Acute (3) Lymphedema Current Visit: No Status: Acute (4) Morbid obesity with BMI of 40.0-44.9, adult Current Visit: No Status: Acute (5) Neuropathy Current Visit: No Status: Acute (6) Osteoarthritis Current Visit: No Status: Acute (7) Hypertension Onset Date: 04/12/17 Current Visit: No Status: Chronic Qualifiers: (8) Restless leg syndrome Onset Date: 04/12/17 Current Visit: No Status: Chronic (9) Type 2 diabetes mellitus Onset Date: 04/12/17 Current Visit: No Status: Chronic Qualifiers: - Plan 1. Continue with IV antibiotic 2. Continue with local wound care 3. Wound care consultation/surgical consultation 4. Gentle IV hydration 5. Monitor CBC 6. Strict blood sugar monitoring 7. Pain control 8. GI and DVT prophylaxis Discharge Plan: Home Plan to discharge in: Greater than 2 days - Advance Directives Does patient have a Living Will: Yes Does patient have a Durable POA for Healthcare: Yes - Code Status/Comfort Care Code Status Assessed: Yes Code Status: Full Code Critical Care: No Time Spent Managing PTS Care (In Minutes): 45
[2019-03-18] MEDS: SPIRONOLACTONE 25 MG TABLET PO SCH ×2 (10:18→21:25)
--- NOTE | 2019-03-18 11:36 | RAD REPORT ---
EXAM DESCRIPTION: RAD - Chest Single View - 03/17/2019 10:48 pm CLINICAL HISTORY: FEVER Chest pain. COMPARISON: Chest Pa And Lat (2 Views) dated 10/31/2018; Chest Single View dated 04/11/2017; Chest Pa And Lat (2 Views) dated 11/26/2016; CHEST PA AND LAT 2 VIEW dated 10/09/2009 FINDINGS: Portable technique limits examination quality. The lungs are grossly clear. The heart is mildly enlarged in size. No displaced fractures.Cervical sp ine hardware. IMPRESSION: No acute intrathoracic process suspected.
[2019-03-18] MEDS: INSULIN -REGULAR HUMAN 50 UNIT/0.5 ML ML SQ SCH ×3 (12:19→21:25)
[2019-03-18] MEDS: CLINDAMYCIN INJ 600 MG in NA CHLORIDE 0.9% 50 ML IV SCH (17:14)
[2019-03-18] MEDS: ACETAMINOPHEN 500 MG TAB PO PRN (18:44)
[2019-03-18 19:52] LABS: Urine Appearance CLEAR; Urine Bilirubin NEGATIVE (NEG); Urine Blood NEGATIVE (NEG); Urine Color YELLOW; Urine Glucose NEGATIVE (NEG); Urine Protein NEGATIVE (NEG); Urine Urobilinogen 0.2 mg/dL (0.2-1.0)
[2019-03-18 19:55] LABS: Urine Microscopic Reflex NO UMIC
[2019-03-19] MEDS: FUROSEMIDE 40 MG/4 ML VIAL IV SCH ×3 (00:24→16:42)
[2019-03-19] MEDS: CLINDAMYCIN INJ 600 MG in NA CHLORIDE 0.9% 50 ML IV SCH ×2 (00:24→09:00)
[2019-03-19] MEDS ORDERED: NA CHLORIDE 0.9% 250 ML ONE (00:34)
[2019-03-19] MEDS: ACETAMINOPHEN 500 MG TAB PO PRN (00:34)
[2019-03-19] MEDS ORDERED: NYSTATIN 100MU/GM CREAM 15GM TOP PRN (00:53)
[2019-03-19] MEDS ORDERED: BISACODYL E.C. 5 MG TAB PO PRN (00:53)
[2019-03-19] MEDS ORDERED: TRAMADOL HCL 50 MG TAB PO PRN (00:53)
[2019-03-19] MEDS: CODEINE 30MG/APAP 300MG TAB PO PRN ×2 (01:42→12:23)
[2019-03-19] MEDS ORDERED: VANCOMYCIN 2 GM in NA CHLORIDE 0.9% 500 ML IV SCH (02:00)
[2019-03-19] MEDS: MORPHINE 4 MG/ML SYR IV PRN (05:59)
[2019-03-19 06:05] LABS: Absolute Lymphocytes (CBC) 1.7 K/uL (0.7-4.9); Basophils % 0.9 % (0-1.3); Hematocrit 30.6 % (36.0-45.0); Lymphocytes % 15.4 % (15.3-44.8); MPV 8.3 fL (7.6-11.3)
[2019-03-19 06:24] LABS: Albumin 2.8 g/dL (3.4-5.0); Bilirubin Total 0.5 mg/dL (0.2-1.0); Magnesium 2.1 mg/dL (1.8-2.4); Phosphorus 4.5 mg/dL (2.5-4.9); Potassium 3.6 mmol/L (3.5-5.1); Protein, Total 6.3 g/dL (6.4-8.2)
[2019-03-19] MEDS ORDERED: PANTOPRAZOLE 40MG TABLET PO SCH (06:30)
[2019-03-19] MEDS ORDERED: LEVOTHYROXINE SOD 0.025 MG TAB PO SCH ×2 (06:30→09:00)
[2019-03-19 06:33] LABS: Thyroid Stimulating Hormone 5.49 uIU/mL (0.360-3.740)
[2019-03-19] MEDS: INSULIN -REGULAR HUMAN 50 UNIT/0.5 ML ML SQ SCH ×3 (07:30→16:42)
[2019-03-19] MEDS: SPIRONOLACTONE 25 MG TABLET PO SCH (08:53)
[2019-03-19] MEDS ORDERED: MV CAL IRON MN PO SCH (09:00)
[2019-03-19] MEDS ORDERED: FLUTICASONE NS SCH (09:00)
[2019-03-19] MEDS ORDERED: METOPROLOL XL 50 MG TAB PO SCH (09:00)
[2019-03-19] MEDS ORDERED: ASPIRIN 81 MG CHEWABLE TABLET PO SCH (09:00)
[2019-03-19] MEDS ORDERED: FOLIC ACID PO SCH (09:00)
[2019-03-19] MEDS ORDERED: PRAMIPEXOLE 0.25 MG TAB PO SCH ×2 (09:00→21:00)
[2019-03-19] MEDS ORDERED: INSULIN DEGLUDEC 65 UNIT SQ SCH (09:00)
[2019-03-19] MEDS ORDERED: MULTIVITAMIN PO SCH (09:00)
[2019-03-19] MEDS ORDERED: FERROUS SULFATE 325 MG TAB PO SCH (09:00)
[2019-03-19] MEDS ORDERED: CINNAMON BARK 1000 MG PO SCH (09:00)
[2019-03-19] MEDS ORDERED: HOME MED 1 EA UNK (Pregabalin [Lyrica] 300 MG) PO SCH (09:00)
[2019-03-19] MEDS ORDERED: CHOL PO SCH (09:00)
[2019-03-19] MEDS ORDERED: FUROSEMIDE 40 MG TABLET PO SCH (09:00)
[2019-03-19] MEDS ORDERED: [UNRECOGNIZED DRUG - OTHER] PO SCH (09:00)
--- NOTE | 2019-03-19 11:36 | EKG ---
Test Date: 2019-03-17 Test Time: 23:18:10 Property Valuer: CARLOS MEASUREMENT RESULTS: Intervals: Rate: 99 MI: 182 QRSD: 84 QT: 350 QTc: 449 [place]: P: 85 MI: 182 QRS: -21 T: 52 INTERPRETIVE STATEMENTS: Sinus rhythm with marked sinus arrhythmia Septal infarct, age undetermined Abnormal ECG Compared to ECG 04/11/2017 16:01:17 First degree AV block no longer present Myocardial infarct finding still present Electronically Signed On 03-19-19 11:31:36 CDT by Kamaljit Casiano
[2019-03-19 14:14] VITALS: BP 134/54
--- NOTE | 2019-03-19 15:11 | P.SSS ---
Patient History Date of Service: 03/19/19 Reason for admission: LOWER EXTREMITY ERYTHEMA AND EDEMA History of Present Illness: Patient is a 73-year-old female who comes into the hospital with erythema of the right lower extremity. She has also noticed some swelling in the region. She came to the ER for further evaluation. She has been having some pain and tenderness as well. She states that her has been trying to get her into the hospital for the last couple of days but she was not want to be admitted to the hospital. However, her pain got so severe that she decided to come in for further evaluation. She has wound healing Center treatment at [facility] wound [facility] 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 At this time, she will need IV antibiotic therapy. She will be admitted for further evaluation. Allergies Allergies ciprofloxacin Allergy (Verified 03/18/19 05:46) Hallucinations erythromycin base Allergy (Verified 10/31/18 11:10) Itching/Hives/Rash losartan Allergy (Verified 03/18/19 04:36) Hallucinations Macrolide Antibiotics Allergy (Verified 03/18/19 05:46) Itching/Hives/Rash metronidazole [From Flagyl] Allergy (Verified 03/18/19 05:46) Itching/Hives/Rash Penicillins Allergy (Verified 10/31/18 11:10) Itching/Hives/Rash pentoxifylline Allergy (Verified 03/18/19 05:46) Itching/Hives/Rash Home Medications: Spironolactone 25 mg PO DAILY 04/11/17 Acetic Acid 0.25% [Acetic Acid 0.25%*] 1 appl IR DAILY 03/18/19 Aspirin Chewable [Aspirin Chewable*] 81 mg PO DAILY 03/18/19 Bisacodyl [Dulcolax*] 5 mg PO DAILYPRN PRN 03/18/19 Cinnamon Bark [Cinnamon] 1,000 mg PO DAILY 03/18/19 Codeine/APAP [Tylenol #3*] 1 tab PO Q4HP PRN 03/18/19 Ferrous Sulfate [Ferrous Sulfate*] 325 mg PO DAILY 03/18/19 Fluticasone [Flonase 50MCG Nasal [place]*] 2 sprays NS DAILY 03/18/19 Furosemide 80 mg PO BIDL 03/18/19 Insulin Degludec [Tresiba Flextouch U-100] 65 unit SQ DAILY 03/18/19 Latanoprost/Pf [Latanoprost 0.005% Eye Drop] 1 gtt EACH EYE BEDTIME 03/18/19 Levothyroxine Sodium 25 mcg PO DAILY 03/18/19 Metoprolol Succinate [Toprol Xl*] 50 mg PO BID 03/18/19 Montelukast [Singulair*] 10 mg PO BEDTIME 03/18/19 Multivitamin [Daily Multiple Vitamin] 1 each PO DAILY 03/18/19 Mv,[place],Iron,Mn/Folic Acid/Chol [Hair, Skin and Nails Capsule] 1 each PO DAILY Nystatin Cream [Mycostatin 100MU/Gm Cream*] 1 appl TOP BIDP PRN 03/18/19 Omeprazole [Prilosec] 40 mg PO DAILY 03/18/19 Pramipexole [Mirapex*] 0.25 mg PO DAILY 03/18/19 Pramipexole [Mirapex*] 0.5 mg PO BEDTIME 03/18/19 Pravastatin Sodium 40 mg PO BEDTIME 03/18/19 Pregabalin [Lyrica] 300 mg PO BID 03/18/19 Tramadol HCl [Ultram] 50 mg PO Q6HP PRN 03/18/19 Levofloxacin [Levaquin] 500 mg PO DAILY #14 tablet 03/19/19 - Past Medical/Surgical History Has patient received pneumonia vaccine in the past: Yes Diabetic: Yes -: Pneumonia -: DM -: HTN -: HLD -: Hypothyroidism -: Neuropathy -: Glaucoma -: Atrial Fibrillation -: EYE SX -: CERVICAL SPINE -: HYSTERECTOMY -: APPENDECTOMY -: FOOT SX - Family History Mother -: Cancer Notes: stomach and intestinal cancer Father -: Heart disease - Social History Smoking Status: Never smoker Alcohol use: No CD- Drugs: No Caffeine use: Yes Place of Residence: Home Review of Systems 10-point ROS is otherwise unremarkable Physical Examination - Vital Signs Temperature: 97.7 F Blood Pressure: 134/54 Pulse: 117 Respirations: 18 Pulse Ox (%): 94 - Physical Exam General: Alert, In no apparent distress HEENT: Atraumatic, PERRLA, Mucous membr. moist/pink, EOMI, Sclerae nonicteric Neck: Supple, 2+ carotid pulse no bruit, No LAD, Without JVD or thyroid abnormality Respiratory: Clear to auscultation bilaterally, Normal air movement Cardiovascular: Regular rate/rhythm, Normal S1 S2 Gastrointestinal: Normal bowel sounds, No tenderness Musculoskeletal: Erythema, Tenderness, Warmth Integumentary: No rashes Neurological: Normal gait, Normal speech, Normal strength at 5/5 x4 extr, Normal tone, Normal affect Lymphatics: No axilla or inguinal lymphadenopathy - Diagnosis (Problem(s)) (1) Cellulitis of leg, right Current Visit: Yes Status: Acute (2) Chronic venous hypertension w/ulcer and inflammation involv both sides Current Visit: No Status: Chronic (3) Diabetes Current Visit: No Status: Chronic Qualifiers: Diabetes mellitus type: type 2 Diabetes mellitus intermediate teacher insulin use: without intermediate teacher use Diabetes mellitus complication status: without complication Qualified Code(s): E11.9 - Type 2 diabetes mellitus without complications (4) Morbid obesity with BMI of 40.0-44.9, adult Current Visit: No Status: Chronic (5) Osteoarthritis Current Visit: No Status: Chronic Qualifiers: Osteoarthritis location: unspecified site (6) Hypertension Onset Date: 04/12/17 Current Visit: No Status: Chronic Qualifiers: Hypertension type: essential hypertension (7) Type 2 diabetes mellitus Onset Date: 04/12/17 Current Visit: No Status: Chronic Qualifiers: Diabetes mellitus assisted insulin use: with assisted use Diabetes mellitus complication status: without complication Qualified Code(s): E11.9 - Type 2 diabetes mellitus without complications; Z79.4 - longterm (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 Treatment Summary: Overall during the hospital stay patient remained stable Patient was initially admitted to the hospital for bilateral lower leg cellulitis. Patient does have a history of chronic venous stasis with ulceration and lymphedema. Patient was started on IV antibiotics. Had marked improvement in her symptoms. Wound Care Center was consulted. Patient was seen by wound healing center and provided with wound care to recommendations. Patient wants had marked improvement in her cellulitis was discharged home under stable condition was asked to follow up with primary care provider along with wound healing center for further care. Patient demonstrate understanding and thus was discharged home under stable condition. Was given prescription for doxycycline. - Disposition Disposition: ROUTINE DISCHARGE Condition: FAIR Diet: Regular Activity: Ad carl
[2019-03-19 18:16] VITALS: TEMP 97.2
[2019-03-19] MEDS ORDERED: ATORVASTATIN 10 MG TAB PO SCH (21:00)
[2019-03-19] MEDS ORDERED: MONTELUKAST 10 MG TAB PO SCH (21:00)
[2019-03-19] MEDS ORDERED: HOME MED 1 EA UNK (Latanoprost/Pf [Latanoprost 0.005% Eye Drop] 1 GTT) EACH EYE SCH (21:00)
[2019-03-20] MEDS ORDERED: MUPIROCIN 2% OINT 22GM TUBE TOP SCH (09:00)
== END 2019-03-19 17:40 | disposition home or self-care (01) ==
LOC: ER 21:06 → INTOOBSV 03-18 03:33 → 2ND 03-18 03:33
PROVIDERS: ADMIT Hospitalist; ATTEND Family Medicine
DX: L03.115 Cellulitis of right lower limb (principal); I87.333 Chronic venous hypertension (idiopathic) with ulcer and inflammation of bilateral lower extremity; E11.9 Type 2 diabetes mellitus without complications; I10 Essential (primary) hypertension; E78.5 Hyperlipidemia, unspecified; E03.9 Hypothyroidism, unspecified; G62.9 Polyneuropathy, unspecified; I48.91 Unspecified atrial fibrillation; I89.0 Lymphedema, not elsewhere classified; E66.01 Morbid (severe) obesity due to excess calories; G25.81 Restless legs syndrome; M19.90 Unspecified osteoarthritis, unspecified site; H40.9 Unspecified glaucoma; Z68.41 Body mass index [BMI] 40.0-44.9, adult
CPT/HCPCS: 96365; 96367; 93005; 87040 ×2; 85025 ×2; 80048; 36415 ×2; 83735; 82550; 84100; 85610; 82962 ×9; 80076; 83605 ×2; 85730; 84443; 83036; 84484; 84439; 83690; 80053; 84145 ×2; 71045; 99251; 96375; 99285; J1940 ×6; J3010; P9047; J1720; J2405; G0378 ×3; 81003; 81015

== ENCOUNTER 2019-04-04 15:17 | Emergency (ER) | payer OTHER ==
[2019-04-04 16:15] LABS: Absolute Lymphocytes (CBC) 1.4 K/uL (0.7-4.9); Basophils % 0.6 % (0-1.3); Hematocrit 36.7 % (36.0-45.0); Lymphocytes % 12.5 % (15.3-44.8); MPV 8.7 fL (7.6-11.3); RBC Red Blood Cell Count 4.55 M/uL (3.86-4.86)
[2019-04-04] MEDS ORDERED: FUROSEMIDE 20 MG/ 2ML VIAL ONE (16:17)
[2019-04-04 16:47] LABS: Albumin 3.3 g/dL (3.4-5.0); Bilirubin Direct 0.1 mg/dL (0-0.2); Bilirubin Total 0.5 mg/dL (0.2-1.0); Potassium 4.1 mmol/L (3.5-5.1); Protein, Total 7.3 g/dL (6.4-8.2)
--- NOTE | 2019-04-04 16:51 | EKG ---
Test Date: 2019-04-04 Test Time: 16:01:25 Financial Reporting Analyst: ANASTACIO MEASUREMENT RESULTS: Intervals: Rate: 93 NE: 232 QRSD: 84 QT: 364 QTc: 452 [place]: P: 65 NE: 232 QRS: -89 T: 50 INTERPRETIVE STATEMENTS: Sinus rhythm with marked sinus arrhythmia with 1st degree AV block Left axis deviation Septal infarct, age undetermined Abnormal ECG Compared to ECG 03/17/2019 23:18:10 First degree AV block now present Left-axis deviation now present Myocardial infarct finding still present Electronically Signed On 04-04-19 16:50:46 CDT by Zack Fuentes
[2019-04-04] MEDS ORDERED: INSULIN -REGULAR HUMAN 50 UNIT/0.5 ML ML ONE (16:59)
[2019-04-04] MEDS ORDERED: VANCOMYCIN 2 GM in NA CHLORIDE 0.9% 500 ML IVPB ONE (17:00)
[2019-04-04] MEDS ORDERED: VANCOMYCIN/NS 1 gm 1 GM/250 ML BAG IV ONE (17:00)
--- NOTE | 2019-04-04 17:05 | RAD REPORT ---
EXAM DESCRIPTION: US - Extrem Venous W Compress Jeevan - 04/04/2019 4:53 pm CLINICAL HISTORY: SWELLING Bilateral leg edema and swelling. COMPARISON: Extrem Venous W Compress Jeevan dated 01/25/2019 TECHNIQUE: Real-time sonographic interrogation of the left and right lower extremity deep venous sys tems was performed. FINDINGS: In the right popliteal vein there is linear echogenic material seen with flow present. The echogenic material appears partially occlusive and has the appearance chronic/partially recannulized thrombus. It was not visualized on the prior ultrasound. Mild old thrombus is also seen in the super ficial veins very close to the popliteal vein on the left. Elsewhere, no evidence of acute DVT seen. IMPRESSION: Partially occlusive echogenic material is seen within the right popliteal vein which was not clearly evident on the prior study. This has the appearance of partially recannulized old thromb us. There continues to be mild superficial thrombus present in the left leg close to the popliteal ve in confluence. An acute DVT is not currently suspected.
[2019-04-04 17:44] LABS: Urine Blood NEGATIVE (NEG); Urine Glucose 2+ (NEG); Urine Protein NEGATIVE (NEG); Urine pH 6.5 (5.0-7.0)
[2019-04-04] MEDS ORDERED: DOXYCYCLINE 100 MG CAP PO ONE (18:43)
[2019-04-04] MEDS ORDERED: RIVAROXABAN 15 MG TABLET PO ONE (19:00)
--- NOTE | 2019-04-04 19:17 | ER ---
Nurse's Notes [facility] Name: Stephany Bran Age: 73 yrs Sex: Female : 1945 Arrival Date: 04/04/2019 Time: 15:20 Bed 20 Private MD: Diagnosis: chronic dvt of right popliteal vein;Fluid overload Presentation: 04/04 15:27 Presenting complaint: Worsening right lower leg swelling and redness x 3 days. PT hb recently inpatient for cellulitis of right leg, goes to Dr. Cabrera in the [facility]. Transition of care: patient was not received from another setting of care. Onset of symptoms was April 02, 2019. Risk Assessment: Do you want to hurt yourself or someone else? Patient reports no desire to harm self or others. Initial Sepsis Screen: Does the patient meet any 2 criteria? No. Patient's initial sepsis screen is negative. Does the patient have a suspected source of infection? No. Patient's initial sepsis screen is negative. Care prior to arrival: None. 15:27 Method Of Arrival: Wheelchair hb 15:27 Acuity: NGA 3 hb Historical: - Allergies: 15:31 Ciprofloxacin; hb 15:31 Losartan; hb 15:31 MACROLIDES; hb 15:31 METRONIDAZOLE; hb 15:31 PENICILLINS; hb 15:31 pentoxifylline; hb - Home Meds: 17:24 Tramadol Oral [Active]; Furosemide Oral [Active]; Spironolactone Oral [Active]; sv metformin er [Active]; Glimepiride Oral [Active]; pramipexole oral oral [Active]; pravastatin oral oral [Active]; metoprolol succinate oral oral [Active]; levothyroxine oral [Active]; latanoprost ophthalmic ophthalmic [Active]; fluticasone nasal nasal [Active]; Ferrous Sulfate Oral [Active]; Omeprazole Oral [Active]; Lyrica Oral [Active]; montelukast oral oral [Active]; Tresiba FlexTouch U-100 subcutaneous subcutaneous [Active]; - PMHx: 15:31 Bronchitis; Diabetes - NIDDM; Hyperlipidemia; Hypertension; Hypothyroidism; hb - PSHx: 15:31 Hysterectomy; Tonsillectomy; cataract surgery; growth on tendon of left foot removal; hb - Immunization history:: Adult Immunizations up to date. - Social history:: Smoking status: Patient/guardian denies using tobacco. - Ebola Screening: : No symptoms or risks identified at this time. Screenin:23 Abuse screen: Denies threats or abuse. Denies injuries from another. Nutritional sv screening: No deficits noted. Tuberculosis screening: No symptoms or risk factors identified. Fall Risk None identified. Assessment: 15:40 General: Appears in no apparent distress. comfortable, well developed, Behavior is sv calm, cooperative, appropriate for age. Pain: Complains of pain in right leg and left leg Pain currently is 6 out of 10 on a pain scale. Pain began 2-3 days ago. Is intermittent. Neuro: Level of Consciousness is awake, alert, obeys commands, Oriented to person, place, time, situation, Moves all extremities. Gait is steady, Speech is normal. Respiratory: Airway is patent Respiratory effort is even, unlabored, Respiratory pattern is regular, symmetrical. Derm: Skin is pink, warm \T\ dry. redness and swelling noted to BLE. Pt has dressings to BLE that were changed today by her nurse. Musculoskeletal: Range of motion: intact in all extremities, Swelling present in right leg and left leg. 16:50 Reassessment: Pt still in ultrasound at this time. sv 17:21 Reassessment: Patient appears in no apparent distress at this time. No changes from sv previously documented assessment. Patient and/or family updated on plan of care and expected duration. Pain level reassessed. Patient is alert, oriented x 3, equal unlabored respirations, skin warm/dry/pink. 18:13 Reassessment: Patient appears in no apparent distress at this time. No changes from sv previously documented assessment. Patient and/or family updated on plan of care and expected duration. Pain level reassessed. Patient is alert, oriented x 3, equal unlabored respirations, skin warm/dry/pink. 19:38 Reassessment: Patient appears in no apparent distress at this time. Patient and/or jb4 family updated on plan of care and expected duration. Pain level reassessed. Patient is alert, oriented x 3, equal unlabored respirations, skin warm/dry/pink. PT verbalized understanding of d/c and follow up instructions. Assisted to vehicle via wheel chair. Vital Signs: 15:31 BP 132 / 54; Pulse 103; Resp 16; Temp 97.8; Pulse Ox 98% on R/A; Weight 122.47 kg; hb Height 5 ft. 7 in. (170.18 cm); Pain 6/10; 17:32 BP 115 / 43; Pulse 103; Resp 18; Temp 99.6(O); Pulse Ox 98% on R/A; mh5 18:12 BP 133 / 45; Pulse 101; Resp 18; Pulse Ox 99% ; sv 18:22 BP 133 / 45; Pulse 105; Resp 18; Temp 98.9(O); Pulse Ox 98% on R/A; mh5 15:31 Body Mass Index 42.29 (122.47 kg, 170.18 cm) hb ED Course: 15:20 Patient arrived in ED. mr 15:23 Flora Sharma RN is Primary Nurse. sv 15:23 Arm band placed on. sv 15:23 Patient placed in an exam room, on a stretcher. sv 15:23 Patient has correct armband on for positive identification. Bed in low position. Call sv light in reach. Adult w/ patient. Door closed. Head of bed elevated. 15:30 Triage completed. hb 15:31 Leigh Luther FNP-C is PHCP. snw 15:31 Charles Gupta MD is Attending Physician. snw 15:40 Nurse Practitioner and/or Physician Museum Assistant to see patient. sv 15:45 Initial lab(s) drawn, by me, sent to lab. First set of blood cultures drawn by me. sv Inserted saline lock: 20 gauge in left forearm, using aseptic technique. Blood collected. Flushed left forearm with 5 ml normal saline. 16:00 Second set of blood cultures drawn by me. sv 16:05 Patient taken to ultrasound. via stretcher. sv 16:10 EKG done, by forestry technician. reviewed by Leigh RUBIO. sm3 16:35 US Extremity Venous W Compression Jeevan In Process Unspecified. EDMS 16:55 Ultrasound completed. Patient tolerated well. Patient moved back from ultrasound. lc3 17:22 IV is patent, is intact, with fluids infusing freely. sv 17:23 Urine Dipstick--Ancillary (enter results) Sent. 5 19:15 Primary Nurse role handed off by Flora Sharma RN sv 19:15 Report given to Michael LOWE. sv 19:37 Raoul, Michael, RN is Primary Nurse. jb4 19:38 No provider procedures requiring assistance completed. IV discontinued, intact, jb4 bleeding controlled, No redness/swelling at site. Pressure dressing applied. Administered Medications: 17:21 Drug: Insulin Regular Human 5 units {Co-Signature: stephanie (Flora Sharma RN).} Route: hb IVP; Site: left forearm; 17:55 Follow up: Response: No adverse reaction sv 17:22 Drug: Lasix 20 mg Route: IVP; Site: left forearm; sv 17:55 Follow up: Response: No adverse reaction sv 17:24 Drug: vancoMYCIN 1 grams Route: IVPB; Infused Over: 2 hrs; Site: left forearm; sv 18:30 Follow up: Response: No adverse reaction; IV Status: Completed infusion; IV Intake: sv 100ml 19:40 Drug: Doxycycline 100 mg Route: PO; jb4 19:41 Follow up: Response: Medication administered at discharge. jb4 19:40 Drug: Xarelto 15 mg Route: PO; jb4 19:41 Follow up: Response: Medication administered at discharge. jb4 Intake: 18:30 IV: 100ml; Total: 100ml. sv 16:00 5 oz of fluid from her feminine pad. sv Output: 16:00 Other: 1 (Pads) ; Total: 0ml. sv 17:20 Urine: 700ml (Voided); Total: 700ml. sv 19:40 Urine: 900ml (Voided); Total: 1600ml. jb4 16:00 5 oz of fluid from her feminine pad. sv Outcome: 19:17 Discharge ordered by . snw 19:38 Discharged to home via wheelchair, with family. jb4 19:38 Condition: stable 19:38 Discharge instructions given to patient, family, Instructed on discharge instructions, follow up and referral plans. medication usage, Demonstrated understanding of instructions, follow-up care, medications, Prescriptions given X 3. 19:41 Patient left the ED. jb4 Signatures: Dispatcher [employer] Flora Veloz RN RN sv Therrien, Shelly, PANTOGRAPH OPERATOR-C PANTOGRAPH OPERATOR-Csnw BladimirJenny mr [place], Jacqueline Delcid RN RN Michael Silveira, RN RN jb4 Allison Hernadez [facility] Marii Dawson [facility] Flora Zachary RN sv Corrections: (The following items were deleted from the chart) 16:38 16:38 Ultrasound completed. Patient tolerated well. lc3 lc3
--- NOTE | 2019-04-04 19:17 | EDPHYS ---
Physician Documentation [facility] Name: Stephany Bran Age: 73 yrs Sex: Female : 1945 Arrival Date: 04/04/2019 Time: 15:20 Bed 20 Private MD: ED Physician Chalres Gupta HPI: 04/04 17:22 This 73 yrs old Female presents to ER via Wheelchair with complaints of Leg snw Swelling. 17:22 The patient presents with swelling. The complaints affect the left lower leg and right snw lower leg. Context: The problem was sustained at home, resulted from a chronic condition, the patient can fully bear weight, the patient is able to ambulate. Onset: The symptoms/episode began/occurred pt was admitted recently and finished two week course of abx for similar s/s, legs then became erythematous. Associated signs and symptoms: Pertinent positives: swelling, warmth, erythema. Treatment prior to arrival includes: home health and wound care. Severity of symptoms: At their worst the symptoms were moderate. The patient has experienced similar episodes in the past. The patient has been recently seen by a physician: The patient has been recently been admitted at [facility], for similar complaints, but despite evaluation and treatment the patient has continued symptoms. Historical: - Allergies: 15:31 Ciprofloxacin; hb 15:31 Losartan; hb 15:31 MACROLIDES; hb 15:31 METRONIDAZOLE; hb 15:31 PENICILLINS; hb 15:31 pentoxifylline; hb - Home Meds: 17:24 Tramadol Oral [Active]; Furosemide Oral [Active]; Spironolactone Oral [Active]; sv metformin er [Active]; Glimepiride Oral [Active]; pramipexole oral oral [Active]; pravastatin oral oral [Active]; metoprolol succinate oral oral [Active]; levothyroxine oral [Active]; latanoprost ophthalmic ophthalmic [Active]; fluticasone nasal nasal [Active]; Ferrous Sulfate Oral [Active]; Omeprazole Oral [Active]; Lyrica Oral [Active]; montelukast oral oral [Active]; Tresiba FlexTouch U-100 subcutaneous subcutaneous [Active]; - PMHx: 15:31 Bronchitis; Diabetes - NIDDM; Hyperlipidemia; Hypertension; Hypothyroidism; hb - PSHx: 15:31 Hysterectomy; Tonsillectomy; cataract surgery; growth on tendon of left foot removal; hb - Immunization history:: Adult Immunizations up to date. - Social history:: Smoking status: Patient/guardian denies using tobacco. - Ebola Screening: : No symptoms or risks identified at this time. ROS: 17:18 Constitutional: Negative for fever, chills, and weight loss, Eyes: Negative for injury, snw pain, redness, and discharge, ENT: Negative for injury, pain, and discharge, Neck: Negative for injury, pain, and swelling, Cardiovascular: Negative for chest pain, palpitations, and edema, Respiratory: Negative for shortness of breath, cough, wheezing, and pleuritic chest pain, Abdomen/GI: Negative for abdominal pain, nausea, vomiting, diarrhea, and constipation, Back: Negative for injury and pain, : Negative for injury, bleeding, discharge, and swelling, Skin: Negative for injury, rash, and discoloration, Neuro: Negative for headache, weakness, numbness, tingling, and seizure, Psych: Negative for depression, anxiety, suicide ideation, homicidal ideation, and hallucinations. 17:18 MS/extremity: Positive for erythema, swelling, tenderness, warmth, of the bilateral lower extremities. Exam: 16:52 Constitutional: This is a well developed, well nourished patient who is awake, alert, snw and in no acute distress. Head/Face: Normocephalic, atraumatic. Eyes: Pupils equal round and reactive to light, extra-ocular motions intact. Lids and lashes normal. Conjunctiva and sclera are non-icteric and not injected. Cornea within normal limits. Periorbital areas with no swelling, redness, or edema. ENT: Nares patent. No nasal discharge, no septal abnormalities noted. Tympanic membranes are normal and external auditory canals are clear. Oropharynx with no redness, swelling, or masses, exudates, or evidence of obstruction, uvula midline. Mucous membranes moist. Neck: Trachea midline, no thyromegaly or masses palpated, and no cervical lymphadenopathy. Supple, full range of motion without nuchal rigidity, or vertebral point tenderness. No Meningismus. Chest/axilla: Normal chest wall appearance and motion. Nontender with no deformity. No lesions are appreciated. Cardiovascular: Regular rate and rhythm with a normal S1 and S2. No gallops, murmurs, or rubs. Normal PMI, no JVD. No pulse deficits. Respiratory: Lungs have equal breath sounds bilaterally, clear to auscultation and percussion. No rales, rhonchi or wheezes noted. No increased work of breathing, no retractions or nasal flaring. Abdomen/GI: Soft, non-tender, with normal bowel sounds. No distension or tympany. No guarding or rebound. No evidence of tenderness throughout. Back: No spinal tenderness. No costovertebral tenderness. Full range of motion. MS/ Extremity: Pulses equal, no cyanosis. Neurovascular intact. Full, normal range of motion. Neuro: Awake and alert, GCS 15, oriented to person, place, time, and situation. Cranial nerves II-XII grossly intact. Motor strength 5/5 in all extremities. Sensory grossly intact. Cerebellar exam normal. Normal gait. Psych: Awake, alert, with orientation to person, place and time. Behavior, mood, and affect are within normal limits. 16:52 Skin: Appearance: normal except for affected area, swelling, noted on the lower right leg and lower left leg, that are moderate. Vital Signs: 15:31 BP 132 / 54; Pulse 103; Resp 16; Temp 97.8; Pulse Ox 98% on R/A; Weight 122.47 kg; hb Height 5 ft. 7 in. (170.18 cm); Pain 6/10; 17:32 BP 115 / 43; Pulse 103; Resp 18; Temp 99.6(O); Pulse Ox 98% on R/A; mh5 18:12 BP 133 / 45; Pulse 101; Resp 18; Pulse Ox 99% ; sv 18:22 BP 133 / 45; Pulse 105; Resp 18; Temp 98.9(O); Pulse Ox 98% on R/A; mh5 15:31 Body Mass Index 42.29 (122.47 kg, 170.18 cm) hb MDM: 15:31 Patient medically screened. snw 19:20 Data reviewed: vital signs, nurses notes. Data interpreted: Pulse oximetry: on room air snw is 98 %. Interpretation: normal. Counseling: I had a detailed discussion with the patient and/or guardian regarding: the historical points, exam findings, and any diagnostic results supporting the discharge/admit diagnosis, lab results, radiology results, the need for outpatient follow up, to return to the emergency department if symptoms worsen or persist or if there are any questions or concerns that arise at home. Physician consultation: Abi Prado MD was called at 18:00, was contacted at 18:05, regarding admission, to the telemetry unit. pt refuses admit. Special discussion: Based on the history and exam findings, there is no indication for further emergent testing or inpatient evaluation. I discussed with the patient/guardian the need to see the putty mixer for further evaluation of the symptoms. I discussed with the patient/guardian the need to see the primary care provider for further evaluation of the symptoms. 04/04 15:43 Order name: Basic Metabolic Panel; Complete Time: 16:50 snw 04/04 15:43 Order name: CBC with Diff; Complete Time: 16:32 snw 04/04 15:43 Order name: Creatinine for Radiology; Complete Time: 16:32 snw 04/04 15:43 Order name: Hepatic Function; Complete Time: 16:50 snw 04/04 15:43 Order name: Blood Culture Adult (2) snw 04/04 17:19 Order name: Urine Dipstick--Ancillary (enter results); Complete Time: 17:45 gm 04/04 15:43 Order name: EKG; Complete Time: 15:44 snw 04/04 15:43 Order name: US Extremity Venous W Compression Jeevan; Complete Time: 17:11 snw 04/04 17:54 Order name: FSBG Nova; Complete Time: 18:29 sv 04/04 15:43 Order name: IV Saline Lock; Complete Time: 16:10 snw 04/04 15:43 Order name: Labs collected and sent; Complete Time: 16:10 snw 04/04 15:43 Order name: EKG - Nurse/Tech; Complete Time: 16:10 snw 04/04 15:45 Order name: Urine Dipstick-Ancillary (obtain specimen); Complete Time: 17:23 snw 04/04 15:45 Order name: Misc. Order: Please document output; Complete Time: 16:09 snw Administered Medications: 17:21 Drug: Insulin Regular Human 5 units {Co-Signature: sv (Flora Sharma RN).} Route: hb IVP; Site: left forearm; 17:55 Follow up: Response: No adverse reaction sv 17:22 Drug: Lasix 20 mg Route: IVP; Site: left forearm; sv 17:55 Follow up: Response: No adverse reaction sv 17:24 Drug: vancoMYCIN 1 grams Route: IVPB; Infused Over: 2 hrs; Site: left forearm; sv 18:30 Follow up: Response: No adverse reaction; IV Status: Completed infusion; IV Intake: sv 100ml 19:40 Drug: Doxycycline 100 mg Route: PO; jb4 19:41 Follow up: Response: Medication administered at discharge. jb4 19:40 Drug: Xarelto 15 mg Route: PO; jb4 19:41 Follow up: Response: Medication administered at discharge. jb4 Disposition: 04/04/19 19:17 Discharged to Home. Impression: chronic dvt of right popliteal vein, Fluid overload. - Condition is Stable. - Discharge Instructions: Cellulitis, Adult, Deep Vein Thrombosis. - Prescriptions for Lasix 20 mg Oral Tablet - take 1 tablet by ORAL route once daily; 20 tablet. Doxycycline Hyclate 100 mg Oral Tablet - take 1 tablet by ORAL route every 12 hours; 14 tablet. Xarelto 15 mg Oral Tablet - take 1 tablet by ORAL route 2 times per day; 42 tablet. - Medication Reconciliation Form, Thank You Letter, Antibiotic Education, Prescription Opioid Use form. - Follow up: Private Physician; When: 1 - 2 days; Reason: Recheck today's complaints, Continuance of care, Re-evaluation by your physician. Follow up: Emergency Department; When: As needed; Reason: Worsening of condition. - Notes: Increase furosemide to twice daily. Addendum: 04/07/2019 07:01 Co-signature as Attending Physician, Charles Gupta MD. r n Signatures: Dispatcher [employer] Flora Veloz, CHRISSY LOWE sv Leigh Luther, NEGATIVE ASSEMBLER-C NEGATIVE ASSEMBLER-Csnw Charles Gupta MD MD rn Baxter, Heather, RN RN hb Bryson, James, RN RN jb4 Flora brown Corrections: (The following items were deleted from the chart) 04/04 19:41 19:17 04/04/2019 19:17 Discharged to Home. Impression: chronic dvt of right popliteal jb4 vein; Fluid overload. Condition is Stable. Forms are Medication Reconciliation Form, Thank You Letter, Antibiotic Education, Prescription Opioid Use. Follow up: Private Physician; When: 1 - 2 days; Reason: Recheck today's complaints, Continuance of care, Re-evaluation by your physician. Follow up: Emergency Department; When: As needed; Reason: Worsening of condition. snw
[2019-04-04 19:52] VITALS: BP 133/45
[2019-04-04 20:03] VITALS: TEMP 98.9; O2SAT 98
== END 2019-04-04 19:41 | disposition home or self-care (01) ==
LOC: ER 15:17
DX: I82.531 Chronic embolism and thrombosis of right popliteal vein (principal); E87.70 Fluid overload, unspecified; I10 Essential (primary) hypertension; E03.9 Hypothyroidism, unspecified; E78.5 Hyperlipidemia, unspecified; E11.9 Type 2 diabetes mellitus without complications; Z79.4 Long term (current) use of insulin; Z88.0 Allergy status to penicillin; Z88.1 Allergy status to other antibiotic agents; Z88.8 Allergy status to other drugs, medicaments and biological substances
CPT/HCPCS: 96365; 93005; 87040 ×2; 85025; 80048; 36415; 82962; 80076; 81003; 93970; 96375; 99284; J1940; J3370

== ENCOUNTER 2019-06-09 19:02 | Inpatient (IN) | payer OTHER ==
--- OUTSIDE RECORDS SUMMARY | 2019-06-09 19:04 | XMS REPORT ---
:1945 [facility] Address [address] [place] [address] Care Team Providers Name Role Phone Unavailable Unavailable Unavailable Problems This patient has no known problems. Allergies, Adverse Reactions, Alerts This patient has no known allergies or adverse reactions. Medications This patient has no known medications.
[2019-06-09] MEDS ORDERED: NA CHLORIDE 0.9% 2,000 ML ONE (19:16)
[2019-06-09] MEDS ORDERED: MORPHINE 4 MG/ML SYR ONE (19:25)
[2019-06-09] MEDS ORDERED: ONDANSETRON 4 MG/2 ML VIAL ONE (19:25)
[2019-06-09 19:34] LABS: Absolute Lymphocytes (CBC) 0.6 K/uL (0.7-4.9); Basophils % 0.2 % (0-1.3); Lymphocytes % 4.1 % (15.3-44.8); MPV 9.3 fL (7.6-11.3); RBC Red Blood Cell Count 3.99 M/uL (3.86-4.86)
[2019-06-09 19:54] LABS: ALT/SGPT 23 U/L (12-78); AST/SGOT 14 U/L (15-37); Albumin 3.3 g/dL (3.4-5.0); Alkaline Phosphatase 57 U/L (45-117); BUN Blood Urea Nitrogen 17 mg/dL (7-18); Bicarbonate 30 mmol/L (21-32); Bilirubin Direct < 0.1 mg/dL (0-0.2); Bilirubin Total 0.5 mg/dL (0.2-1.0); CKMB Creatine Kinase MB 1.2 ng/mL (0.3-3.6); Creatine Phosphokinase 110 U/L (26-192); Glucose Level 277 mg/dL (74-106); Lipase 85 U/L (73-393); Potassium 3.6 mmol/L (3.5-5.1); Protein, Total 7.3 g/dL (6.4-8.2); Sodium Level 138 mmol/L (136-145); Troponin (Emerg Dept Use Only) < 0.02 ng/mL (0.0-0.045)
--- NOTE | 2019-06-09 19:55 | RAD REPORT ---
EXAM DESCRIPTION: Stella Single View06/09/2019 7:41 pm CLINICAL HISTORY: cough COMPARISON: March 2019 FINDINGS: The lungs appear clear of acute infiltrate. The heart is normal size IMPRESSION: No acute abnormalities displayed
[2019-06-09 20:06] LABS: Protime INR 1.43
[2019-06-09 20:21] LABS: Blood Morphology Comment NOT SEEN (NOT SEEN); Platelet Estimate ADEQ; Urine White Blood Cell Casts OK
[2019-06-09] MEDS ORDERED: CEFEPIME 1 GM/100 ML BAG IV ONE (20:59)
[2019-06-09] MEDS ORDERED: VANCOMYCIN 1 GM/VIAL ONE (20:59)
[2019-06-09] MEDS ORDERED: MORPHINE 2 MG/ML SYR ONE (20:59)
[2019-06-09] MEDS ORDERED: NA CHLORIDE 0.9% 250 ML ONE (21:07)
--- NOTE | 2019-06-09 21:26 | ER ---
Nurse's Notes [facility] Name: Stephany Bran Age: 73 yrs Sex: Female : 1945 Arrival Date: 06/09/2019 Time: 19:06 Bed 8 Private MD: Diagnosis: Cellulitis and acute lymphangitis Presentation: 06/09 19:06 Presenting complaint: EMS states: Headache, cough, fever, and lower leg pain x 3 days. hb Recently inpatient for BLE cellulitis. T 101.1, HR 110s, BGL 147, 20g R FA. Transition of care: patient was not received from another setting of care. Onset of symptoms was June 07, 2019. Risk Assessment: Do you want to hurt yourself or someone else? Patient reports no desire to harm self or others. Initial Sepsis Screen: Does the patient meet any 2 criteria? Temp <36.0*C (96.8*F)) or > 38.3*C (100.9*F). HR > 90 bpm. Yes Does the patient have a suspected source of infection? Yes: Skin breakdown/wound. Care prior to arrival: 20g Right FA. 19:06 Method Of Arrival: EMS: [facility] hb 19:06 Acuity: NGA 2 hb Historical: - Allergies: 19:11 Losartan; hb 19:11 Ciprofloxacin; hb 19:11 MACROLIDES; hb 19:11 METRONIDAZOLE; hb 19:11 PENICILLINS; hb 19:11 pentoxifylline; hb 19:11 Demerol; hb - PMHx: 19:11 Diabetes - NIDDM; Hypothyroidism; Hypertension; Hyperlipidemia; Bronchitis; hb - PSHx: 19:11 Hysterectomy; Tonsillectomy; cataract surgery; growth on tendon of left foot removal; hb - Immunization history:: Adult Immunizations up to date. - Social history:: Smoking status: Patient/guardian denies using tobacco. - Ebola Screening: : No symptoms or risks identified at this time. Screenin:55 Abuse screen: Denies threats or abuse. Denies injuries from another. Nutritional rr5 screening: No deficits noted. Tuberculosis screening: No symptoms or risk factors identified. Fall Risk IV access (20 points). Gait- Impaired (20 pts.). Total Serrano Fall Scale indicates Low Risk Score (25-44 pts). Fall prevention measures have been instituted. Side Rails Up X 2 Placed close to Nursing Station Frequent Obs/Assesments occuring Family Present and informed to notify staff if they need to leave bedside As available Patient and Family Educated on Fall Prevention Program and strategies. Assessment: 19:06 Reassessment: CODE SEPSIS CALLED. hb 19:06 General: Appears in no apparent distress. uncomfortable, Behavior is calm, cooperative. rr5 Pain: Complains of pain in back, right leg and left leg and neck Pain does not radiate. Pain currently is 10 out of 10 on a pain scale. Quality of pain is described as aching, Pain began gradually, Is intermittent. 19:06 Neuro: Level of Consciousness is awake, alert, obeys commands, Oriented to person, rr5 place, time, situation, Appropriate for age. Cardiovascular: Capillary refill < 3 seconds Patient's skin is warm and dry. Respiratory: Airway is patent Respiratory effort is even, unlabored, Respiratory pattern is regular, symmetrical. GI: No signs and/or symptoms were reported involving the gastrointestinal system. : No signs and/or symptoms were reported regarding the genitourinary system. EENT: No signs and/or symptoms were reported regarding the EENT system. Derm: Skin has blisters on cellulitis lower extremities. has skin tears on lower extremities swelling lower extremities. Musculoskeletal: Capillary refill < 3 seconds, Swelling present in right leg and left leg. 19:08 Reassessment: FAZAL FROM INSIDE LAB AT BEDSIDE FOR LAB DRAW. hb 20:10 Reassessment: Patient appears in no apparent distress at this time. No changes from rr5 previously documented assessment. awaiting for results. Patient states symptoms have improved. 20:30 Reassessment: ED provider order to stop the IVF at 1 liter. IVF infusion. discontinue. rr5 21:14 Reassessment: pt placed on 2L via NC. pt breathing through mouth, pt encouraged to ak1 breath in through her nose, out through her mouth. pt and family notified of possible admit. 22:00 Reassessment: Patient appears in no apparent distress at this time. Patient and/or rr5 family updated on plan of care and expected duration. Pain level reassessed. Patient is alert, oriented x 3, equal unlabored respirations, skin warm/dry/pink. patient and dry molder updated and agreed for the plan of admission. Vital Signs: 19:09 BP 129 / 35; Pulse 105; Resp 17; Temp 99.4(O); Pulse Ox 100% on R/A; Weight 127.01 kg; hb Height 5 ft. 7 in. (170.18 cm); Pain 8/10; 20:28 BP 121 / 55; Pulse 110; Resp 22; Temp 99.5; Pulse Ox 98% ; rr5 21:30 BP 108 / 78; Pulse 108; Resp 23; Pulse Ox 98% on 2 lpm NC; rr5 22:00 BP 131 / 59; Pulse 105; Resp 20; Pulse Ox 98% on 2 lpm NC; rr5 22:50 BP 110 / 57; Pulse 107; Resp 21; Temp 101.2; Pulse Ox 98% on 2 lpm NC; rr5 19:09 Body Mass Index 43.85 (127.01 kg, 170.18 cm) hb ED Course: 19:06 Patient arrived in ED. hb 19:08 Asaf Santizo FNP-C is PHCP. la1 19:08 Wale Dozier MD is Attending Physician. la1 19:08 Triage completed. hb 19:10 Arm band placed on. hb 19:12 Perez Jacobo, CHRISSY is Primary Nurse. rr5 19:15 Patient has correct armband on for positive identification. Placed in gown. Bed in low rr5 position. Call light in reach. Side rails up X2. monitor technician on. Pulse ox on. NIBP on. 19:20 Inserted saline lock: 20 gauge in left forearm, using aseptic technique. Blood rr5 collected. 19:25 Second set of blood cultures drawn by me. rr5 19:49 Chest Single View XRAY In Process Unspecified. EDMS 21:24 Sam Lynn MD is Hospitalizing Provider. la1 23:05 No provider procedures requiring assistance completed. Patient admitted, IV remains in rr5 place. intact, No redness/swelling at site. Administered Medications: Discontinued: NS 0.9% (30 ml/kg) 30 ml/kg IV at bolus once; Sepsis Protocol 19:20 Drug: NS 0.9% (30 ml/kg) 30 ml/kg Route: IV; Rate: bolus; Site: left forearm; rr5 21:04 Follow up: Response: No adverse reaction; IV Status: Order to discontinue infusion; IV rr5 Intake: 1000ml 19:25 Drug: Zofran 4 mg Route: IVP; Site: left forearm; rr5 20:25 Follow up: Response: No adverse reaction rr5 19:27 Drug: morphine 4 mg {Note: rass 0.} Route: IVP; Site: left forearm; rr5 20:30 Follow up: Response: No adverse reaction; RASS: Alert and Calm (0) rr5 20:58 Drug: morphine 2 mg {Note: rass 0. .} Route: IVP; Site: left forearm; rr5 22:00 Follow up: Response: No adverse reaction; RASS: Alert and Calm (0) rr5 21:00 Dru grams of (Cefepime 1 grams, NS 0.9% 100 ml) Route: IVPB; Rate: 200 ml/hr; rr5 Infused Over: 30 mins; Site: left forearm; 21:30 Follow up: Response: No adverse reaction; IV Status: Completed infusion; IV Intake: rr5 100ml 21:32 Drug: vancoMYCIN 1 grams Route: IVPB; Infused Over: 2 hrs; Site: left forearm; rr5 23:14 Follow up: Response: No adverse reaction; IV Status: Infusion continued upon admission rr5 22:50 Drug: Tylenol 1000 mg Route: PO; rr5 23:13 Follow up: Response: No adverse reaction rr5 Intake: 21:04 IV: 1000ml; Total: 1000ml. rr5 21:30 IV: 100ml; Total: 1100ml. rr5 Outcome: 21:25 Decision to Hospitalize by Provider. la1 23:05 Admitted to Tele accompanied by tech, via stretcher, room 410, with oxygen, with chart, rr5 Report called to carlita 23:05 Condition: stable 23:05 Instructed on the need for admit. 23:18 Patient left the ED. rr5 Signatures: Dispatcher [employer] EDMS Asaf Santizo, LASHELL-C HAT CONDITIONER-Cla1 Hannah Montalvo RN RN ak1 Jacqueline Mclaughlin RN RN hb Roque, Raymond RN RN rr5 Corrections: (The following items were deleted from the chart) 23:13 23:00 BP 110 / 57; Pulse 107bpm; Resp 21bpm; Pulse Ox 98% 2 lpm Nasal Cannula; Temp rr5 101.2F; rr5
--- NOTE | 2019-06-09 21:26 | EDPHYS ---
Physician Documentation [facility] Name: Stephany Bran Age: 73 yrs Sex: Female : 1945 Arrival Date: 06/09/2019 Time: 19:06 Bed 8 Private MD: ED Physician Wale Dozier HPI: 06/09 19:28 This 73 yrs old Female presents to ER via EMS with complaints of Leg Pain, la1 Fever. 19:28 The patient presents with swelling, tenderness. The complaints affect the right leg and la1 left leg. Associated signs and symptoms: Pertinent positives: fever. Treatment prior to arrival includes: danette wrap. Severity of symptoms: At their worst the symptoms were moderate. pt with history of lymphedema to ACE LE, states pain is worse in left leg. Also reports non-productive cough for the last one month. Has also recently had cellulitis of her legs 2/2 lymphedema.. Historical: - Allergies: 19:11 Losartan; hb 19:11 Ciprofloxacin; hb 19:11 MACROLIDES; hb 19:11 METRONIDAZOLE; hb 19:11 PENICILLINS; hb 19:11 pentoxifylline; hb 19:11 Demerol; hb - PMHx: 19:11 Diabetes - NIDDM; Hypothyroidism; Hypertension; Hyperlipidemia; Bronchitis; hb - PSHx: 19:11 Hysterectomy; Tonsillectomy; cataract surgery; growth on tendon of left foot removal; hb - Immunization history:: Adult Immunizations up to date. - Social history:: Smoking status: Patient/guardian denies using tobacco. - Ebola Screening: : No symptoms or risks identified at this time. ROS: 20:39 Constitutional: + for fever Eyes: Negative for injury, pain, redness, and discharge, la1 ENT: Negative for injury, pain, and discharge, Neck: Negative for injury, pain, and swelling, Cardiovascular: Negative for chest pain, palpitations, and edema, Respiratory: + for cough Abdomen/GI: Negative for abdominal pain, nausea, vomiting, diarrhea, and constipation, Back: Negative for injury and pain, MS/Extremity: + for redness, swelling to ACE LE Neuro: Negative for headache, weakness, numbness, tingling, and seizure. Exam: 20:40 Constitutional: This is a well developed, well nourished patient who is awake, alert, la1 and in no acute distress. Head/Face: Normocephalic, atraumatic. Eyes: Pupils equal round and reactive to light, extra-ocular motions intact. Periorbital areas with no swelling, redness, or edema. ENT: Mucous membranes moist. Neck: . Supple, full range of motion without nuchal rigidity, or vertebral point tenderness. No Meningismus. Chest/axilla: Normal chest wall appearance and motion. Nontender with no deformity. No lesions are appreciated. Cardiovascular: Regular rate and rhythm with a normal S1 and S2. No gallops, murmurs, or rubs. Normal PMI, no JVD. No pulse deficits. Respiratory: Lungs have equal breath sounds bilaterally, clear to auscultation No rales, rhonchi or wheezes noted. No increased work of breathing, no retractions or nasal flaring. Abdomen/GI: Soft, non-tender, with normal bowel sounds. No distension or tympany. No guarding or rebound. No evidence of tenderness throughout. Back: No spinal tenderness. No costovertebral tenderness. Full range of motion. 20:40 Musculoskeletal/extremity: Extremities: noted in the left leg: erythema, rash, swelling, tenderness, noted in the right leg: erythema, pain, swelling, tenderness. 20:40 Skin: cellulitis, that is moderate, irregular, patchy, on the Left and Right lower extremity. Vital Signs: 19:09 BP 129 / 35; Pulse 105; Resp 17; Temp 99.4(O); Pulse Ox 100% on R/A; Weight 127.01 kg; hb Height 5 ft. 7 in. (170.18 cm); Pain 8/10; 20:28 BP 121 / 55; Pulse 110; Resp 22; Temp 99.5; Pulse Ox 98% ; rr5 21:30 BP 108 / 78; Pulse 108; Resp 23; Pulse Ox 98% on 2 lpm NC; rr5 22:00 BP 131 / 59; Pulse 105; Resp 20; Pulse Ox 98% on 2 lpm NC; rr5 22:50 BP 110 / 57; Pulse 107; Resp 21; Temp 101.2; Pulse Ox 98% on 2 lpm NC; rr5 19:09 Body Mass Index 43.85 (127.01 kg, 170.18 cm) MDM: 19:08 Patient medically screened. la1 21:25 Data reviewed: vital signs, nurses notes, EMS record, lab test result(s), radiologic la1 studies, I have discussed the patient's presentation/case with the attending Emergency Department Physician; and as a result, I will admit patient. Data interpreted: Pulse oximetry: on room air is 95 %. Interpretation: normal. Test interpretation: by ED physician or midlevel provider: ECG, plain radiologic studies. Counseling: I had a detailed discussion with the patient and/or guardian regarding: the historical points, exam findings, and any diagnostic results supporting the discharge/admit diagnosis, lab results, radiology results, the need for further work-up and treatment in the hospital. Physician consultation: Sam Lynn MD was called at 21:00, was contacted at 21:00, regarding admission, to the medical/surgical unit. and will see patient. 06/09 19:12 Order name: Basic Metabolic Panel hb 06/09 19:12 Order name: Blood Culture Adult (2) hb 06/09 19:12 Order name: CBC with Diff; Complete Time: 20:33 hb 06/09 19:12 Order name: Ckmb; Complete Time: 20:06 hb 06/09 19:12 Order name: CPK; Complete Time: 20:06 hb 06/09 19:12 Order name: Lactate; Complete Time: 20:06 hb 06/09 19:12 Order name: LFT's; Complete Time: 20:06 hb 06/09 19:12 Order name: Lipase; Complete Time: 20:06 hb 06/09 19:12 Order name: Procalcitonin; Complete Time: 20:33 hb 06/09 19:12 Order name: Protime (+inr); Complete Time: 20:33 hb 06/09 19:12 Order name: Ptt, Activated; Complete Time: 20:33 hb 06/09 19:12 Order name: Troponin (emerg Dept Use Only); Complete Time: 20:06 hb 06/09 19:12 Order name: Urine Microscopic Only hb 06/09 19:12 Order name: Basic Metabolic Panel; Complete Time: 20:06 EDMS 06/09 19:12 Order name: Chest Single View XRAY; Complete Time: 20:06 hb 06/09 19:12 Order name: Blood Culture EDMS 06/09 19:13 Order name: Flu; Complete Time: 20:06 la1 06/09 19:32 Order name: Glucose, Ancillary Testing; Complete Time: 20:06 EDMS 06/09 19:50 Order name: CBC Smear Scan; Complete Time: 20:33 EDMS 06/09 21:49 Order name: Basic Metabolic Panel EDMS 06/09 21:50 Order name: Basic Metabolic Panel EDMS 06/09 21:50 Order name: Protime (+INR) EDMS 06/09 21:50 Order name: Protime (+INR) EDMS 06/09 21:50 Order name: PTT, Activated Partial Thromb EDMS 06/09 21:50 Order name: PTT, Activated Partial Thromb EDMS 06/09 21:52 Order name: CBC with Automated Diff EDMS 06/09 21:52 Order name: CBC with Automated Diff EDMS 06/09 19:12 Order name: Accucheck; Complete Time: 19:53 hb 06/09 19:12 Order name: Cardiac monitoring; Complete Time: 19:53 hb 06/09 19:12 Order name: EKG - Nurse/Tech; Complete Time: 19:53 hb 06/09 19:12 Order name: IV Saline Lock - Large Bore; Complete Time: 19:53 hb 06/09 19:12 Order name: Labs collected and sent; Complete Time: 19:54 hb 06/09 19:12 Order name: O2 Per Protocol; Complete Time: 19:54 hb 06/09 19:12 Order name: O2 Sat Monitoring; Complete Time: 19:54 hb 06/09 21:49 Order name: CONS Pharmacy Consult EDKS 06/09 21:49 Order name: CONS Pharmacy Consult EDKS 06/09 21:49 Order name: CONS Pharmacy Consult EDKS 06/09 21:52 Order name: Regular EDMS Administered Medications: Discontinued: NS 0.9% (30 ml/kg) 30 ml/kg IV at bolus once; Sepsis Protocol 19:20 Drug: NS 0.9% (30 ml/kg) 30 ml/kg Route: IV; Rate: bolus; Site: left forearm; rr5 21:04 Follow up: Response: No adverse reaction; IV Status: Order to discontinue infusion; IV rr5 Intake: 1000ml 19:25 Drug: Zofran 4 mg Route: IVP; Site: left forearm; rr5 20:25 Follow up: Response: No adverse reaction rr5 19:27 Drug: morphine 4 mg {Note: rass 0.} Route: IVP; Site: left forearm; rr5 20:30 Follow up: Response: No adverse reaction; RASS: Alert and Calm (0) rr5 20:58 Drug: morphine 2 mg {Note: rass 0. .} Route: IVP; Site: left forearm; rr5 22:00 Follow up: Response: No adverse reaction; RASS: Alert and Calm (0) rr5 21:00 Dru grams of (Cefepime 1 grams, NS 0.9% 100 ml) Route: IVPB; Rate: 200 ml/hr; rr5 Infused Over: 30 mins; Site: left forearm; 21:30 Follow up: Response: No adverse reaction; IV Status: Completed infusion; IV Intake: rr5 100ml 21:32 Drug: vancoMYCIN 1 grams Route: IVPB; Infused Over: 2 hrs; Site: left forearm; rr5 23:14 Follow up: Response: No adverse reaction; IV Status: Infusion continued upon admission rr5 22:50 Drug: Tylenol 1000 mg Route: PO; rr5 23:13 Follow up: Response: No adverse reaction rr5 Disposition: 06/10 07:29 Co-signature as Attending Physician, Wale Dozier MD I agree with the assessment and kdr plan of care. Disposition: 06/09/19 21:25 Hospitalization ordered by Sam Lynn for Inpatient Admission. Preliminary diagnosis is Cellulitis and acute lymphangitis. - Bed requested for Telemetry/MedSurg (Inpatient). - Status is Inpatient Admission. rr5 - Condition is Stable. - Problem is an acute exacerbation. - Symptoms are unchanged. UTI on Admission? No Signatures: Dispatcher [employer] EDKS Wale Dozier MD MD kdr Asaf Santizo, HAT PRESSER-C HAT PRESSER-Cla1 Radha Acuna, RN RN cg Jacqueline Mclaughlin, CHRISSY LOWE Perez Jacobo, CHRISSY RN rr5 Corrections: (The following items were deleted from the chart) 06/09 22:16 21:25 Hospitalization Ordered by Sam Lynn MD for Inpatient Admission. Preliminary cg diagnosis is Cellulitis and acute lymphangitis. Bed requested for Telemetry/MedSurg (Inpatient). Status is Inpatient Admission. Condition is Stable. Problem is an acute exacerbation. Symptoms are unchanged. UTI on Admission? No. la1 23:18 22:16 06/09/2019 21:25 Hospitalization Ordered by Sam Lynn MD for Inpatient rr5 Admission. Preliminary diagnosis is Cellulitis and acute lymphangitis. Bed requested for Telemetry/MedSurg (Inpatient). Status is Inpatient Admission. Condition is Stable. Problem is an acute exacerbation. Symptoms are unchanged. UTI on Admission? No. cg
[2019-06-09] MEDS ORDERED: BISACODYL E.C. 5 MG TAB PO PRN (21:49)
[2019-06-09] MEDS ORDERED: RIVAROXABAN 10 MG TABLET PO ONE (21:52)
[2019-06-09] MEDS ORDERED: VANCOMYCIN/NS 1 gm 1 GM/250 ML BAG IVPB SCH (22:00)
[2019-06-09] MEDS ORDERED: ACETAMINOPHEN 500 MG TAB ONE (22:44)
[2019-06-10] MEDS: AMPICILLIN/SULBACT 3 GM in NA CHLORIDE 0.9% 100 ML IVPB SCH ×4
[2019-06-10] MEDS ORDERED: AMPICILLIN/SULBACTAM 3GM/VIAL ONE (00:09)
[2019-06-10] MEDS: NA CHLORIDE 0.9% 100 ML IV ONE ×2 (00:20)
[2019-06-10] MEDS ORDERED: CLINDAMYCIN INJ 600 MG in NA CHLORIDE 0.9% 50 ML IV SCH (01:00)
[2019-06-10] MEDS ORDERED: CLINDAMYCIN 600MG/D5W 600 MG/50 ML BAG IV ONE (01:00)
[2019-06-10 01:08] VITALS: BMI 44.9
[2019-06-10] MEDS ORDERED: CLINDAMYCIN 600MG/D5W 600 MG/50 ML BAG IV SCH (02:00)
[2019-06-10] MEDS: PANTOPRAZOLE 40MG TABLET PO SCH (04:59)
[2019-06-10 05:00] LABS: Urine Appearance CLOUDY; Urine Bilirubin NEGATIVE (NEG); Urine Blood NEGATIVE (NEG); Urine Color YELLOW; Urine Glucose 1+ (NEG); Urine Protein NEGATIVE (NEG); Urine Urobilinogen 0.2 mg/dL (0.2-1.0); Urine pH 5.5 (5.0-7.0)
[2019-06-10 05:27] LABS: Urine Bacteria 20-50 /HPF (<20); Urine Culture Reflex Order REFLEXED; Urine RBC <5 /HPF (NONE SEEN); Urine Yeast FEW (NONE SEEN)
[2019-06-10 05:31] LABS: Absolute Lymphocytes (CBC) 0.9 K/uL (0.7-4.9); Basophils % 0.4 % (0-1.3); Hematocrit 27.7 % (36.0-45.0); Lymphocytes % 5.3 % (15.3-44.8); MPV 9.3 fL (7.6-11.3); RBC Red Blood Cell Count 3.45 M/uL (3.86-4.86)
[2019-06-10 05:32] LABS: Potassium 3.6 mmol/L (3.5-5.1)
[2019-06-10] MEDS: METOPROLOL XL 50 MG TAB PO SCH ×3 (05:34→20:16)
[2019-06-10] MEDS ORDERED: ACETAMINOPHEN 325 MG TABLET PO PRN (05:35)
[2019-06-10 05:57] LABS: Protime INR 1.66
--- NOTE | 2019-06-10 08:29 | P.HP ---
Certification for Inpatient Patient admitted to: Inpatient With expected LOS: >2 Midnights Patient will require the following post-hospital care: None Practitioner: I am a practitioner with admitting privileges, knowledge of patient current condition, hospital course, and medical plan of care. Services: Services provided to patient in accordance with Admission requirements found in Title 42 Section 412.3 of the Code of Federal Regulations Patient History Date of Service: 06/09/19 Reason for admission: Bilateral lower extremity cellulitis with lymphedema History of Present Illness: Patient is a 73-year-old female came to the hospital with bilateral lower extremity cellulitis and lymphedema. Pt has been having significant pain and swelling in the leg. Patient was found to have erythema of the lower extremities. Patient is daughter was concerned us patient also had an ulcer. Pressure receives home health and wound care per the [facility] [employer]. Patient was admitted to the hospital for further treatment. Patient was started on IV antibiotics. Patient was given gentle diuresing. Patient will be admitted for further treatment in the hospital. Allergies ciprofloxacin Allergy (Verified 03/18/19 05:46) Hallucinations erythromycin base Allergy (Verified 10/31/18 11:10) Itching/Hives/Rash losartan Allergy (Verified 03/18/19 04:36) Hallucinations Macrolide Antibiotics Allergy (Verified 03/18/19 05:46) Itching/Hives/Rash metronidazole [From Flagyl] Allergy (Verified 03/18/19 05:46) Itching/Hives/Rash Penicillins Allergy (Verified 06/09/19 23:49) Itching/Hives/Rash pentoxifylline Allergy (Verified 03/18/19 05:46) Itching/Hives/Rash Home Medications: Acetic Acid 0.25% [Acetic Acid 0.25%*] 1 appl IR DAILY 03/18/19 Codeine/APAP [Tylenol #3*] 1 tab PO Q4HP PRN 03/18/19 Fluticasone [Flonase 50MCG Nasal [place]*] 2 sprays NS DAILY 03/18/19 Furosemide 80 mg PO DAILY 03/18/19 Insulin Degludec [Tresiba Flextouch U-100] 65 unit SQ DAILY 03/18/19 Latanoprost/Pf [Latanoprost 0.005% Eye Drop] 1 gtt EACH EYE BEDTIME 03/18/19 Levothyroxine Sodium 25 mcg PO DAILY 03/18/19 Metoprolol Succinate [Toprol Xl*] 50 mg PO BID 03/18/19 Montelukast [Singulair*] 10 mg PO BEDTIME 03/18/19 Omeprazole [Prilosec] 40 mg PO DAILY 03/18/19 Pramipexole [Mirapex*] 0.25 mg PO DAILY 03/18/19 Pramipexole [Mirapex*] 0.5 mg PO BEDTIME 03/18/19 Pravastatin Sodium 40 mg PO BEDTIME 03/18/19 Pregabalin [Lyrica] 300 mg PO BID 03/18/19 Tramadol HCl [Ultram] 50 mg PO Q6HP PRN 03/18/19 Ferrous Sulfate [Ferrous Sulfate*] 1 tab PO DAILY 06/10/19 Glimepiride 1 tab PO BID 06/10/19 Metoprolol Succinate 1 tab PO BID 06/10/19 Pravastatin Sodium 1 tab PO BEDTIME 06/10/19 Rivaroxaban [Xarelto] 1 tab PO DAILY 06/10/19 - Past Medical/Surgical History Has patient received pneumonia vaccine in the past: Yes Diabetic: Yes -: Pneumonia -: DM -: HTN -: HLD -: Hypothyroidism -: Neuropathy -: Glaucoma -: Atrial Fibrillation -: EYE SX -: CERVICAL SPINE -: HYSTERECTOMY -: APPENDECTOMY -: FOOT SX - Family History Mother Medical History: Cancer Notes: stomach and intestinal cancer Father Medical History: Heart disease - Social History Smoking Status: Never smoker Alcohol use: No CD- Drugs: No Caffeine use: Yes Place of Residence: Home Review of Systems 10-point ROS is otherwise unremarkable Physical Examination - Vital Signs Temperature: 98.3 F Blood Pressure: 99/51 Pulse: 98 Respirations: 18 Pulse Ox (%): 97 - Physical Exam General: Alert, In no apparent distress, Oriented x3, Obese HEENT: Atraumatic, PERRLA, Mucous membr. moist/pink, EOMI, Sclerae nonicteric Neck: Supple, 2+ carotid pulse no bruit, No LAD, Without JVD or thyroid abnormality Respiratory: Clear to auscultation bilaterally, Normal air movement Cardiovascular: Regular rate/rhythm, Normal S1 S2 Gastrointestinal: Normal bowel sounds, Soft and benign, Non-distended, No tenderness Musculoskeletal: No clubbing, No swelling, No tenderness Integumentary: No rashes Neurological: Normal gait, Normal speech, Normal strength at 5/5 x4 extr, Normal tone, Sensation intact, Cranial nerves 3-12 intact, Normal affect Lymphatics: No axilla or inguinal lymphadenopathy - Studies Laboratory Data (last 24 hrs) 06/09/19 19:42: PT 16.6 H, INR 1.43, APTT 32.4 06/09/19 19:20: WBC 15.4 H, Hgb 10.5 L, Hct 32.0 L, Plt Count 226 06/09/19 19:20: Sodium 138, Potassium 3.6, BUN 17, Creatinine 1.28, Glucose 277 H, Total Bilirubin 0.5, AST 14 L, ALT 23, Alkaline Phosphatase 57, Lipase 85 Microbiology Data (last 24 hrs): 06/09/19 19:25 Nasopharnyx Influenza Type A Antigen Screen - Final 06/09/19 19:25 Nasopharnyx Influenza Type B Antigen Screen - Final Assessment & Plan - Problems (Diagnosis) (1) Bilateral lower leg cellulitis Current Visit: Yes Status: Acute (2) Lymphedema Current Visit: No Status: Acute (3) Neuropathy Current Visit: No Status: Acute (4) Chronic venous hypertension w/ulcer and inflammation involv both sides Current Visit: No Status: Chronic (5) Hypertension Onset Date: 04/12/17 Current Visit: No Status: Chronic Qualifiers: Hypertension type: essential hypertension (6) Morbid obesity with BMI of 40.0-44.9, adult Current Visit: No Status: Chronic (7) Osteoarthritis Current Visit: No Status: Chronic (8) Type 2 diabetes mellitus Onset Date: 04/12/17 Current Visit: No Status: Chronic Qualifiers: - Plan 1. Continue with IV antibiotic 2. Continue with local wound care 3. Wound care consultation/surgical consultation 4. Gentle diuresing; may use albumin and Lasix drip for symptomatic relief 5. Monitor CBC 6. Strict blood sugar monitoring 7. Pain control 8. GI and DVT prophylaxis Discharge Plan: Home Plan to discharge in: Greater than 2 days - Advance Directives Does patient have a Living Will: No Does patient have a Durable POA for Healthcare: No - Code Status/Comfort Care Code Status Assessed: Yes Code Status: Full Code Critical Care: No Time Spent Managing PTS Care (In Minutes): 45
--- NOTE | 2019-06-10 08:34 | P.PN ---
Subjective Date of Service: 06/10/19 Subjective: No new changes, No C/O voiced, Improving Review of Systems 10-point ROS is otherwise unremarkable Physical Examination - Vital Signs Temperature: 98.3 F Blood Pressure: 99/51 Pulse: 98 Respirations: 18 Pulse Ox (%): 97 - Physical Exam General: Alert, In no apparent distress, Oriented x3 Respiratory: Clear to auscultation bilaterally, Normal air movement Cardiovascular: Regular rate/rhythm, Normal S1 S2, No murmurs Gastrointestinal: Normal bowel sounds, Soft and benign, Non-distended, No tenderness Musculoskeletal: No clubbing, No swelling Neurological: Normal speech, Normal strength at 5/5 x4 extr, Sensation intact, Cranial nerves 3-12 intact - Studies Laboratory Data (last 24 hrs) 06/09/19 19:42: PT 16.6 H, INR 1.43, APTT 32.4 06/09/19 19:20: WBC 15.4 H, Hgb 10.5 L, Hct 32.0 L, Plt Count 226 06/09/19 19:20: Sodium 138, Potassium 3.6, BUN 17, Creatinine 1.28, Glucose 277 H, Total Bilirubin 0.5, AST 14 L, ALT 23, Alkaline Phosphatase 57, Lipase 85 Microbiology Data (last 24 hrs): 06/09/19 19:25 Nasopharnyx Influenza Type A Antigen Screen - Final 06/09/19 19:25 Nasopharnyx Influenza Type B Antigen Screen - Final Assessment & Plan - Problems (Diagnosis) (1) Bilateral lower leg cellulitis Current Visit: Yes Status: Acute (2) Lymphedema Current Visit: No Status: Acute (3) Neuropathy Current Visit: No Status: Acute (4) Chronic venous hypertension w/ulcer and inflammation involv both sides Current Visit: No Status: Chronic (5) Hypertension Onset Date: 04/12/17 Current Visit: No Status: Chronic Qualifiers: Hypertension type: essential hypertension (6) Morbid obesity with BMI of 40.0-44.9, adult Current Visit: No Status: Chronic (7) Osteoarthritis Current Visit: No Status: Chronic (8) Type 2 diabetes mellitus Onset Date: 04/12/17 Current Visit: No Status: Chronic Qualifiers: - Plan Continue with current plan of care as mentioned below: 1. Continue with IV antibiotic 2. Continue with local wound care 3. Wound care consultation/surgical consultation 4. Gentle diuresing; may use albumin and Lasix drip for symptomatic relief 5. Monitor CBC 6. Strict blood sugar monitoring 7. Pain control 8. GI and DVT prophylaxis Discharge Plan: Home - Advance Directives Does patient have a Living Will: No Does patient have a Durable POA for Healthcare: No - Code Status/Comfort Care Code Status: Full Code Critical Care: No Time Spent Managing PTS Care (In Minutes): 25
[2019-06-10] MEDS: CLINDAMYCIN INJ 600 MG in NA CHLORIDE 0.9% 50 ML IV SCH ×2 (08:43→16:52)
[2019-06-10] MEDS: PRAMIPEXOLE 0.25 MG TAB PO SCH ×2 (08:44→20:15)
[2019-06-10] MEDS: PREGABALIN 150 MG CAP PO SCH ×2 (08:44→20:15)
[2019-06-10] MEDS: SPIRONOLACTONE 25 MG TABLET PO SCH (08:45)
[2019-06-10] MEDS: INSULIN DEGLUDEC 65 UNIT SQ SCH (08:45)
[2019-06-10] MEDS: ASPIRIN 81 MG CHEWABLE TABLET PO SCH (08:45)
[2019-06-10] MEDS: CODEINE 30MG/APAP 300MG TAB PO PRN ×3 (08:51→23:06)
[2019-06-10] MEDS ORDERED: ALBUMIN HUMAN 25% 12.5 GM, FUROSEMIDE 100 MG in NA CHLORIDE 0.9% 40 ML IV SCH (09:00)
[2019-06-10] MEDS: VANCOMYCIN 2 GM in NA CHLORIDE 0.9% 500 ML IV SCH (09:31)
--- NOTE | 2019-06-10 10:11 | EKG ---
Test Date: 2019-06-09 Test Time: 19:44:38 Dining Car Conductor: NIRAJ MEASUREMENT RESULTS: Intervals: Rate: 113 MO: 200 QRSD: 84 QT: 314 QTc: 430 [place]: P: 68 MO: 200 QRS: -36 T: 75 INTERPRETIVE STATEMENTS: Sinus tachycardia Left axis deviation Septal infarct, age undetermined Abnormal ECG Compared to ECG 04/04/2019 16:01:25 Sinus rhythm no longer present Sinus arrhythmia no longer present First degree AV block no longer present Myocardial infarct finding still present Electronically Signed On 06-10-19 10:10:39 BOX MACHINE OPERATOR by Zack Fuentes
[2019-06-10] MEDS: ACETIC ACID 0.25% IRRIG IRR SCH (11:50)
[2019-06-10] MEDS: RIVAROXABAN 20 MG TABLET PO SCH (16:17)
[2019-06-10] MEDS ORDERED: ENOXAPARIN 40 MG/0.4 ML SQ SCH (17:00)
[2019-06-10] MEDS ORDERED: RIVAROXABAN 10 MG TABLET PO SCH (17:00)
[2019-06-10] MEDS: MORPHINE 2 MG/ML SYR IV PRN ×2 (17:40→21:27)
[2019-06-10] MEDS: ATORVASTATIN 10 MG TAB PO SCH (20:15)
[2019-06-10] MEDS ORDERED: HOME MED 1 EA UNK (Latanoprost/Pf [Latanoprost 0.005% Eye Drop] 1 GTT) EACH EYE SCH (21:00)
[2019-06-11] MEDS: CLINDAMYCIN INJ 600 MG in NA CHLORIDE 0.9% 50 ML IV SCH ×3 (01:00→16:28)
[2019-06-11] MEDS: PANTOPRAZOLE 40MG TABLET PO SCH (06:09)
[2019-06-11] MEDS: CODEINE 30MG/APAP 300MG TAB PO PRN ×3 (06:30→22:07)
[2019-06-11] MEDS ORDERED: TRAMADOL HCL 50 MG TAB PO PRN (07:31)
[2019-06-11] MEDS: ASPIRIN 81 MG CHEWABLE TABLET PO SCH (08:22)
[2019-06-11] MEDS: PRAMIPEXOLE 0.25 MG TAB PO SCH ×2 (08:22→22:07)
[2019-06-11] MEDS: SPIRONOLACTONE 25 MG TABLET PO SCH (08:22)
[2019-06-11] MEDS: METOPROLOL XL 50 MG TAB PO SCH (08:23)
[2019-06-11] MEDS: PREGABALIN 150 MG CAP PO SCH ×2 (08:23→22:07)
[2019-06-11] MEDS: ACETIC ACID 0.25% IRRIG IRR SCH (08:23)
[2019-06-11] MEDS: INSULIN DEGLUDEC 65 UNIT SQ SCH (08:24)
[2019-06-11] MEDS ORDERED: HOME MED 1 EA UNK (Glimepiride [Glimepiride] 1 TAB) PO SCH (09:00)
[2019-06-11] MEDS: VANCOMYCIN 2 GM in NA CHLORIDE 0.9% 500 ML IV SCH (09:00)
[2019-06-11 09:38] LABS: Absolute Lymphocytes (CBC) 1.1 K/uL (0.7-4.9); Basophils % 0.7 % (0-1.3); Hematocrit 27.4 % (36.0-45.0); Lymphocytes % 14.3 % (15.3-44.8); MPV 9.1 fL (7.6-11.3); RBC Red Blood Cell Count 3.44 M/uL (3.86-4.86)
[2019-06-11] MEDS: LEVOTHYROXINE SOD 0.025 MG TAB PO SCH (10:06)
[2019-06-11] MEDS: FERROUS SULFATE 325 MG TAB PO SCH (10:06)
--- NOTE | 2019-06-11 14:34 | P.PN ---
Subjective Date of Service: 06/11/19 Chief Complaint: Bilateral lower extremity cellulitis with lymphedema Subjective: No new changes, No C/O voiced (feel weak , reproted low BP yesterday , lorpessor held today) Review of Systems 10-point ROS is otherwise unremarkable Physical Examination - Vital Signs Temperature: 97.9 F Blood Pressure: 116/56 Pulse: 99 Respirations: 18 Pulse Ox (%): 95 - Physical Exam General: Alert (on NC 02 ), In no apparent distress HEENT: Atraumatic, Normocephalic Neck: Supple, 2+ carotid pulse no bruit, JVD not distended Respiratory: Normal air movement, Crackles/rales Cardiovascular: Regular rate/rhythm, Normal S1 S2, Edema Gastrointestinal: Normal bowel sounds, Soft and benign Musculoskeletal: Swelling, Erythema, Tenderness, Warmth Integumentary: Rash(es) (on LE b/l ) Neurological: Normal speech, Normal tone - Studies Laboratory Last Values WBC 7.8 K/uL (4.3-10.9) D 06/11/19 09:15 RBC 3.44 M/uL (3.86-4.86) L 06/11/19 09:15 Hgb 9.0 g/dL (12.0-15.0) L 06/11/19 09:15 Hct 27.4 % (36.0-45.0) L 06/11/19 09:15 MCV 79.8 fL (80-100) L 06/11/19 09:15 MCH 26.1 pg (27.0-35.0) L 06/11/19 09:15 MCHC 32.8 g/dL (32.0-36.0) 06/11/19 09:15 RDW 17.7 % (12.1-15.2) H 06/11/19 09:15 Plt Count 190 K/uL (152-406) 06/11/19 09:15 MPV 9.1 fL (7.6-11.3) 06/11/19 09:15 Neutrophils % 74.7 % (41.7-73.7) H 06/11/19 09:15 Lymphocytes % 14.3 % (15.3-44.8) L 06/11/19 09:15 Monocytes % 8.9 % (3.3-12.3) 06/11/19 09:15 Eosinophils % 1.4 % (0-4.4) 06/11/19 09:15 Basophils % 0.7 % (0-1.3) 06/11/19 09:15 Absolute Neutrophils 5.8 K/uL (1.8-8.0) 06/11/19 09:15 Absolute Lymphocytes 1.1 K/uL (0.7-4.9) 06/11/19 09:15 Absolute Monocytes 0.7 K/uL (0.1-1.3) 06/11/19 09:15 Absolute Eosinophils 0.1 K/uL (0-0.5) 06/11/19 09:15 Absolute Basophils 0.1 K/uL (0-0.5) 06/11/19 09:15 Morphology Comment Not seen (NOT SEEN) 06/09/19 19:20 PT 19.2 SECONDS (9.5-12.5) H 06/10/19 04:58 INR 1.66 06/10/19 04:58 APTT 33.0 SECONDS (24.3-36.9) 06/10/19 04:58 Sodium 140 mmol/L (136-145) 06/10/19 04:58 Potassium 3.6 mmol/L (3.5-5.1) 06/10/19 04:58 Chloride 106 mmol/L (98-107) 06/10/19 04:58 Carbon Dioxide 31 mmol/L (21-32) 06/10/19 04:58 BUN 17 mg/dL (7-18) 06/10/19 04:58 Creatinine 1.32 mg/dL (0.55-1.3) H 06/10/19 04:58 Estimated GFR 40 mL/min (=/>90) L 06/10/19 04:58 Glucose 148 mg/dL (74-106) H 06/10/19 04:58 POC Glucose 155 mg/dl (65-120) H 06/11/19 11:39 Lactic Acid 0.9 mmol/L (0.4-2.0) 06/11/19 09:15 Calcium 8.0 mg/dL (8.5-10.1) L 06/10/19 04:58 Total Bilirubin 0.5 mg/dL (0.2-1.0) 06/09/19 19:20 Direct Bilirubin < 0.1 mg/dL (0-0.2) 06/09/19 19:20 AST 14 U/L (15-37) L 06/09/19 19:20 ALT 23 U/L (12-78) 06/09/19 19:20 Alkaline Phosphatase 57 U/L (45-117) 06/09/19 19:20 Creatine Kinase 110 U/L (26-192) 06/09/19 19:20 CK-MB (CK-2) 1.2 ng/mL (0.3-3.6) 06/09/19 19:20 Rapid Troponin I < 0.02 ng/mL (0.0-0.045) 06/09/19 19:20 Serum Total Protein 7.3 g/dL (6.4-8.2) 06/09/19 19:20 Albumin 3.3 g/dL (3.4-5.0) L 06/09/19 19:20 Globulin 4.0 g/dL (2.3-3.5) H 06/09/19 19:20 Albumin/Globulin Ratio 0.8 (1.1-1.8) L 06/09/19 19:20 Lipase 85 U/L (73-393) 06/09/19 19:20 Procalcitonin 0.50 ng/mL (<0.50) 06/11/19 09:15 Urine Color Yellow 06/10/19 04:20 Urine Appearance Cloudy 06/10/19 04:20 Urine pH 5.5 (5.0-7.0) 06/10/19 04:20 Ur Specific [place] 1.020 (1.005-1.030) 06/10/19 04:20 Urine Ketones Negative (NEG) 06/10/19 04:20 Urine Blood Negative (NEG) 06/10/19 04:20 Urine Nitrite Negative (NEG) 06/10/19 04:20 Urine Bilirubin Negative (NEG) 06/10/19 04:20 Urine Urobilinogen 0.2 mg/dL (0.2-1.0) 06/10/19 04:20 Ur Leukocyte Esterase Negative (NEG) 06/10/19 04:20 Urine RBC <5 /HPF (NONE SEEN) 06/10/19 04:20 Urine WBC <5 /HPF (<5) 06/10/19 04:20 Ur Squamous Epith Cells 5-10 /HPF (NONE SEEN) H 06/10/19 04:20 Ur Urothelial Cells Cancelled 06/09/19 19:12 Calcium Oxalate Crystal Cancelled 06/09/19 19:12 Uric Acid Crystals Cancelled 06/09/19 19:12 Triple Phos Crystals Cancelled 06/09/19 19:12 Other Crystals Cancelled 06/09/19 19:12 Amorphous Sediment Cancelled 06/09/19 19:12 Glitter Cells Cancelled 06/09/19 19:12 Urine Bacteria 20-50 /HPF (<20) H 06/10/19 04:20 Hyaline Casts 5-10 /LPF (NONE SEEN) 06/10/19 04:20 Fine Granular Casts Cancelled 06/09/19 19:12 Coarse Granular Casts Cancelled 06/09/19 19:12 Waxy Casts Cancelled 06/09/19 19:12 RBC Casts Cancelled 06/09/19 19:12 WBC Casts Cancelled 06/09/19 19:12 Urine Mucus Cancelled 06/09/19 19:12 Urine Other Cancelled 06/09/19 19:12 Urine Trichomonas Cancelled 06/09/19 19:12 Urine Yeast Few (NONE SEEN) 06/10/19 04:20 Ur Yeast w Hyphae Cancelled 06/09/19 19:12 Urine Yeast (Budding) Present (NONE SEEN) H 06/10/19 04:20 Urine Sperm Cancelled 06/09/19 19:12 Urine Culture Reflexed Reflexed 06/10/19 04:20 Urine Total Volume Cancelled 06/09/19 19:12 Urine Glucose 1+ (NEG) H 06/10/19 04:20 Urine Total Protein Negative (NEG) 06/10/19 04:20 Vancomycin Trough 10.0 ug/mL (5.0-20.0) 06/11/19 08:16 Medications List Reviewed: Yes Assessment & Plan - Problems (Diagnosis) (1) Bilateral lower leg cellulitis Current Visit: Yes Status: Acute (2) Anemia Current Visit: No Status: Acute (3) Constipation, chronic Current Visit: No Status: Acute (4) Chronic venous hypertension w/ulcer and inflammation involv both sides Current Visit: No Status: Chronic (5) Diabetes Current Visit: No Status: Chronic Qualifiers: Diabetes mellitus type: type 2 Diabetes mellitus senior care insulin use: without senior care use Diabetes mellitus complication status: without complication Qualified Code(s): E11.9 - Type 2 diabetes mellitus without complications (6) Hypertension Onset Date: 04/12/17 Current Visit: No Status: Chronic Qualifiers: Hypertension type: essential hypertension Discharge Plan: LTAC Plan to discharge in: 48 Hours - Code Status/Comfort Care Code Status Assessed: Yes Code Status: Full Code Physician Review: Patient Assessed, Agree with Above Assessment and Plan Physician Review Additional Text: - still marked fluid overload - will start lasix diuresis - will reduce lopressor -will add midodrine to optmzie BP and aid diuresis - follow blood cx -c/w abx - c/w 02 with slow weaning with diuresis -case mgt d/w , will need NF since recurrent adm
[2019-06-11] MEDS: MIDODRINE HCL 5 MG TABLET PO SCH ×2 (14:53→22:09)
[2019-06-11] MEDS: GLIMEPIRIDE 2 MG TABLET PO SCH (16:10)
[2019-06-11] MEDS: FUROSEMIDE 40 MG TABLET PO SCH (16:11)
[2019-06-11] MEDS: RIVAROXABAN 20 MG TABLET PO SCH (16:12)
[2019-06-11] MEDS: ATORVASTATIN 10 MG TAB PO SCH (22:09)
[2019-06-11] MEDS: MONTELUKAST 10 MG TAB PO SCH (22:09)
[2019-06-11] MEDS: METOPROLOL XL 25 MG TAB PO SCH (22:09)
[2019-06-12] MEDS: CLINDAMYCIN INJ 600 MG in NA CHLORIDE 0.9% 50 ML IV SCH ×3 (00:47→17:45)
[2019-06-12 06:00] LABS: Albumin 2.4 g/dL (3.4-5.0); Bilirubin Total 0.6 mg/dL (0.2-1.0); Potassium 3.9 mmol/L (3.5-5.1); Protein, Total 6.2 g/dL (6.4-8.2)
[2019-06-12] MEDS: CODEINE 30MG/APAP 300MG TAB PO PRN ×2 (06:24→21:13)
[2019-06-12] MEDS: PANTOPRAZOLE 40MG TABLET PO SCH (06:25)
[2019-06-12] MEDS: LEVOTHYROXINE SOD 0.025 MG TAB PO SCH (06:25)
[2019-06-12] MEDS: GLIMEPIRIDE 2 MG TABLET PO SCH ×2 (08:00→17:45)
[2019-06-12] MEDS: SPIRONOLACTONE 25 MG TABLET PO SCH (08:20)
[2019-06-12] MEDS: PREGABALIN 150 MG CAP PO SCH ×2 (08:20→21:26)
[2019-06-12] MEDS: FUROSEMIDE 40 MG TABLET PO SCH ×2 (08:20→17:45)
[2019-06-12] MEDS: FERROUS SULFATE 325 MG TAB PO SCH (08:20)
[2019-06-12] MEDS: PRAMIPEXOLE 0.25 MG TAB PO SCH ×2 (08:20→21:16)
[2019-06-12] MEDS: MIDODRINE HCL 5 MG TABLET PO SCH ×3 (08:21→21:14)
[2019-06-12] MEDS: ASPIRIN 81 MG CHEWABLE TABLET PO SCH (08:21)
[2019-06-12] MEDS: VANCOMYCIN 2 GM in NA CHLORIDE 0.9% 500 ML IV SCH (08:21)
[2019-06-12] MEDS: METOPROLOL XL 25 MG TAB PO SCH ×2 (08:21→21:13)
[2019-06-12] MEDS: INSULIN DEGLUDEC 65 UNIT SQ SCH (08:22)
[2019-06-12] MEDS: ACETIC ACID 0.25% IRRIG IRR SCH (08:22)
[2019-06-12] MEDS ORDERED: FUROSEMIDE 40 MG/4 ML VIAL IV ONE (11:19)
[2019-06-12] MEDS ORDERED: BENZONATATE 100 MG CAP PO PRN (14:50)
--- NOTE | 2019-06-12 15:40 | P.PN ---
Subjective Date of Service: 06/12/19 Chief Complaint: Bilateral lower extremity cellulitis with lymphedema Subjective: No new changes, No C/O voiced (-feel better , anxious to go home - still some cough) Review of Systems 10-point ROS is otherwise unremarkable Physical Examination - Vital Signs Temperature: 97.5 F Blood Pressure: 132/63 Pulse: 102 Respirations: 19 Pulse Ox (%): 91 - Physical Exam General: In no apparent distress, Oriented x3, Obese HEENT: Atraumatic, Normocephalic Neck: 2+ carotid pulse no bruit, JVD not distended, No Thyromegaly Respiratory: Diminished, Crackles/rales Cardiovascular: Normal pulses, Regular rate/rhythm, Normal S1 S2, Edema Gastrointestinal: Normal bowel sounds, Soft and benign Musculoskeletal: No clubbing, No swelling - Studies Medications List Reviewed: Yes Assessment & Plan - Problems (Diagnosis) (1) Bilateral lower leg cellulitis Current Visit: Yes Status: Acute (2) Anemia Current Visit: No Status: Acute (3) Constipation, chronic Current Visit: No Status: Acute (4) Chronic venous hypertension w/ulcer and inflammation involv both sides Current Visit: No Status: Chronic (5) Diabetes Current Visit: No Status: Chronic Qualifiers: Diabetes mellitus type: type 2 Diabetes mellitus penitentiary insulin use: without penitentiary use Diabetes mellitus complication status: without complication Qualified Code(s): E11.9 - Type 2 diabetes mellitus without complications (6) Hypertension Onset Date: 04/12/17 Current Visit: No Status: Chronic Qualifiers: Hypertension type: essential hypertension Discharge Plan: Home - Code Status/Comfort Care Code Status Assessed: Yes Code Status: Full Code Physician Review: Patient Assessed, Agree with Above Assessment and Plan Physician Review Additional Text: LE cellulitis - on abx - area of erythema improving -c/w LE elevation # Gram + hina bacteremia - may be from cellulitis -c/w vanco and clindamycin for now -follow repeat blood cx today # Fluid overload- c/w lasix , volume status improving # Hypotension - due to septic shock -improving -c/w midodrine # Bacteremia related weakness - start PT and OT -may still need SNF # Atrial fib /venous ulcers - on xarelto , c/w lowered dose lopressor
[2019-06-12] MEDS ORDERED: ALBUTEROL 2.5 MG/3 ML NEB SOL NEB PRN (15:41)
[2019-06-12] MEDS ORDERED: GUAIFENESIN/DM 5 ML UCUP PO PRN (15:41)
[2019-06-12] MEDS ORDERED: IPRATROPIUM BROM 0.5MG/2.5ML NEB PRN (15:41)
[2019-06-12] MEDS: RIVAROXABAN 20 MG TABLET PO SCH (17:45)
[2019-06-12] MEDS ORDERED: D50W 25 GM/50 ML SYRINGE/VIAL IV PRN (20:36)
[2019-06-12] MEDS ORDERED: GLUCAGON 1 MG/VIAL IM PRN (20:36)
[2019-06-12] MEDS: ATORVASTATIN 10 MG TAB PO SCH (21:13)
[2019-06-12] MEDS: MONTELUKAST 10 MG TAB PO SCH (21:13)
[2019-06-12] MEDS: GUAIFENESIN 600 MG SA TAB PO SCH (21:17)
[2019-06-12] MEDS: INSULIN -REGULAR HUMAN 50 UNIT/0.5 ML ML SQ SCH (21:19)
[2019-06-13] MEDS: CLINDAMYCIN INJ 600 MG in NA CHLORIDE 0.9% 50 ML IV SCH ×2 (01:05→08:35)
[2019-06-13] MEDS: PANTOPRAZOLE 40MG TABLET PO SCH (05:32)
[2019-06-13] MEDS: LEVOTHYROXINE SOD 0.025 MG TAB PO SCH (05:32)
[2019-06-13 06:04] LABS: Absolute Lymphocytes (CBC) 1.1 K/uL (0.7-4.9); Basophils % 0.7 % (0-1.3); Hematocrit 28.7 % (36.0-45.0); Lymphocytes % 10.1 % (15.3-44.8); MPV 9.1 fL (7.6-11.3)
[2019-06-13 06:18] LABS: Albumin 2.3 g/dL (3.4-5.0); Bilirubin Total 0.6 mg/dL (0.2-1.0); Potassium 3.2 mmol/L (3.5-5.1); Protein, Total 6.4 g/dL (6.4-8.2)
[2019-06-13] MEDS: GLIMEPIRIDE 2 MG TABLET PO SCH (08:33)
[2019-06-13] MEDS: PRAMIPEXOLE 0.25 MG TAB PO SCH (08:33)
[2019-06-13] MEDS: FUROSEMIDE 40 MG TABLET PO SCH (08:33)
[2019-06-13] MEDS: GUAIFENESIN 600 MG SA TAB PO SCH (08:33)
[2019-06-13] MEDS: ASPIRIN 81 MG CHEWABLE TABLET PO SCH (08:33)
[2019-06-13] MEDS: ACETIC ACID 0.25% IRRIG IRR SCH (08:34)
[2019-06-13] MEDS: SPIRONOLACTONE 25 MG TABLET PO SCH (08:34)
[2019-06-13] MEDS: INSULIN -REGULAR HUMAN 50 UNIT/0.5 ML ML SQ SCH ×2 (08:34→11:30)
[2019-06-13] MEDS: METOPROLOL XL 25 MG TAB PO SCH (08:34)
[2019-06-13] MEDS: FERROUS SULFATE 325 MG TAB PO SCH (08:35)
[2019-06-13] MEDS: INSULIN DEGLUDEC 65 UNIT SQ SCH (08:35)
[2019-06-13] MEDS: MIDODRINE HCL 5 MG TABLET PO SCH ×2 (09:00→14:40)
[2019-06-13] MEDS: PREGABALIN 150 MG CAP PO SCH (09:20)
[2019-06-13] MEDS: VANCOMYCIN 2 GM in NA CHLORIDE 0.9% 500 ML IV SCH (10:00)
[2019-06-13 11:21] VITALS: O2SAT 94
--- NOTE | 2019-06-13 14:36 | P.DS ---
Admission Date: 06/09/19 Discharge Date: 06/13/19 Disposition: TRANSFER TO INPATIENT REHAB Discharge Condition: GOOD Reason for Admission: Bilateral lower extremity cellulitis with lymphedema Consultations: None - Problems (1) Bilateral lower leg cellulitis Current Visit: Yes Status: Acute (2) Lymphedema Current Visit: No Status: Chronic (3) Hypertension Onset Date: 04/12/17 Current Visit: No Status: Chronic Qualifiers: Hypertension type: essential hypertension (4) Morbid obesity with BMI of 40.0-44.9, adult Current Visit: No Status: Chronic (5) Osteoarthritis Current Visit: No Status: Chronic Qualifiers: Osteoarthritis location: multiple joints Osteoarthritis type: unspecified Qualified Code(s): M15.9 - Polyosteoarthritis, unspecified (6) Restless leg syndrome Onset Date: 04/12/17 Current Visit: No Status: Chronic (7) Type 2 diabetes mellitus Onset Date: 04/12/17 Current Visit: No Status: Chronic Qualifiers: 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 Pt has been having significant pain and swelling in the leg. Patient was found to have erythema of the lower extremities. Patient is daughter was concerned us patient also had an ulcer. Pressure receives home health and wound care per the [facility]. Patient was admitted to the hospital for further treatment. Patient was started on IV antibiotics. Patient was given gentle diuresing. Patient will be admitted for further treatment in the hospital. Hospital Course: Overall during the hospital stay patient remained stable Patient was initially admitted to the hospital for bilateral lower extremity edema. Was found to have cellulitis secondary to her chronic lymphedema. Was started on IV antibiotics here in the hospital. Wound care was consulted. Patient did have marked improvement in her symptoms on IV antibiotics. Patient at that time was referred over to inpatient rehab due to recurrent lower extremity edema causing her to have significant generalized weakness. Patient also has PAD which causes her to have excruciating pain on ambulation and thus she has sedentary lifestyle. Which can be improved significantly if patient has rehab. Once accepted at inpatient rehab patient was transferred to the inpatient unit for further care. Vital Signs/Physical Exam: Temp Pulse Resp BP Pulse Ox 97.5 F 112 H 16 102/55 L 91 06/13/19 12:00 06/13/19 12:00 06/13/19 12:00 06/13/19 12:00 06/13/19 12:00 General: Alert, In no apparent distress HEENT: Atraumatic, PERRLA, EOMI Neck: Supple, JVD not distended Respiratory: Clear to auscultation bilaterally, Normal air movement Cardiovascular: Regular rate/rhythm, Normal S1 S2 Gastrointestinal: Normal bowel sounds, No tenderness Musculoskeletal: No tenderness Integumentary: No rashes Neurological: Normal speech, Normal tone, Normal affect Lymphatics: No axilla or inguinal lymphadenopathy Laboratory Data at Discharge: WBC 10.9 K/uL (4.3-10.9) D 06/13/19 05:31 Hgb 9.7 g/dL (12.0-15.0) L 06/13/19 05:31 Hct 28.7 % (36.0-45.0) L 06/13/19 05:31 Plt Count 207 K/uL (152-406) 06/13/19 05:31 PT 19.2 SECONDS (9.5-12.5) H 06/10/19 04:58 INR 1.66 06/10/19 04:58 APTT 33.0 SECONDS (24.3-36.9) 06/10/19 04:58 Sodium 141 mmol/L (136-145) 06/13/19 05:31 Potassium 3.2 mmol/L (3.5-5.1) L 06/13/19 05:31 BUN 15 mg/dL (7-18) 06/13/19 05:31 Creatinine 1.02 mg/dL (0.55-1.3) 06/13/19 05:31 Glucose 211 mg/dL (74-106) H 06/13/19 05:31 Total Bilirubin 0.6 mg/dL (0.2-1.0) 06/13/19 05:31 AST 53 U/L (15-37) H 06/13/19 05:31 ALT 40 U/L (12-78) 06/13/19 05:31 Alkaline Phosphatase 38 U/L (45-117) L 06/13/19 05:31 Lipase 85 U/L (73-393) 06/09/19 19:20 Home Medications: Acetic Acid 0.25% [Acetic Acid 0.25%*] 1 appl IR DAILY 03/18/19 Codeine/APAP [Tylenol #3*] 1 tab PO Q4HP PRN 03/18/19 Fluticasone [Flonase 50MCG Nasal [place]*] 2 sprays NS DAILY 03/18/19 Furosemide 80 mg PO DAILY 03/18/19 Insulin Degludec [Tresiba Flextouch U-100] 65 unit SQ DAILY 03/18/19 Latanoprost/Pf [Latanoprost 0.005% Eye Drop] 1 gtt EACH EYE BEDTIME 03/18/19 Levothyroxine Sodium 25 mcg PO DAILY 03/18/19 Metoprolol Succinate [Toprol Xl*] 50 mg PO BID 03/18/19 Montelukast [Singulair*] 10 mg PO BEDTIME 03/18/19 Omeprazole [Prilosec] 40 mg PO DAILY 03/18/19 Pramipexole [Mirapex*] 0.25 mg PO DAILY 03/18/19 Pramipexole [Mirapex*] 0.5 mg PO BEDTIME 03/18/19 Pravastatin Sodium 40 mg PO BEDTIME 03/18/19 Pregabalin [Lyrica] 300 mg PO BID 03/18/19 Tramadol HCl [Ultram] 50 mg PO Q6HP PRN 03/18/19 Ferrous Sulfate [Ferrous Sulfate*] 1 tab PO DAILY 06/10/19 Glimepiride 1 tab PO BID 06/10/19 Metoprolol Succinate 1 tab PO BID 06/10/19 Pravastatin Sodium 1 tab PO BEDTIME 06/10/19 Rivaroxaban [Xarelto] 1 tab PO DAILY 06/10/19 Midodrine HCl [Proamatine*] 5 mg PO TID tab 06/13/19 Spironolactone [Aldactone*] 25 mg PO DAILY #0 tab 06/13/19 Diet: Regular Activity: Ad carl
[2019-06-13 16:07] VITALS: BP 119/64; TEMP 97.3
== END 2019-06-13 16:45 | DRG 603 ==
LOC: ER 19:02 → 4TH 21:47
PROVIDERS: ADMIT Hospitalist; ATTEND Hospitalist
DX: L03.116 Cellulitis of left lower limb (principal); Z68.42 Body mass index [BMI] 45.0-49.9, adult; L03.115 Cellulitis of right lower limb; I89.0 Lymphedema, not elsewhere classified; I10 Essential (primary) hypertension; E66.01 Morbid (severe) obesity due to excess calories; M19.90 Unspecified osteoarthritis, unspecified site; G25.81 Restless legs syndrome; E11.9 Type 2 diabetes mellitus without complications; Z79.4 Long term (current) use of insulin; I73.9 Peripheral vascular disease, unspecified; D64.9 Anemia, unspecified; K59.00 Constipation, unspecified; I48.91 Unspecified atrial fibrillation; Z79.01 Long term (current) use of anticoagulants; Z88.0 Allergy status to penicillin
CPT/HCPCS: 36415; 71045; 80048; 80053; 80076; 80202; 81001; 82550; 82553; 82947; 83605; 83690; 84145; 84484; 85025; 85610; 85730; 87040; 87086; 87088; 87205; 87804; 93005; 94760; 96361; 96365; 96366; 96367; 96375; 97110; 97116; 97161; 97166; 97530; 99285; J0295; J0692; J1940; J2270; J2405; J7030; J7040; P9047

== ENCOUNTER 2019-06-13 16:44 | Inpatient (IN) | payer OTHER ==
--- NOTE | 2019-06-13 16:01 | R.PREADM ---
SCREENING DATE AND TIME 06/13/2019 14:17 (SECURITIES DEALER) ANTICIPATED REHAB ADMISSION DATE 06/15/2019 REFERRING FACILITY [facility] REFERRAL DATE AND TIME 06/13/2019 14:17 (SECURITIES DEALER) REFERRAL OFFICE PHONE [phone] REFERRAL ROOM# [id number] ACUTE ADMIT DATE 06/09/2019 Previous Rehabilitation(s): No. ACUTE DRONE OPERATOR/DC NET FINISHER Latonya Baptiste REFERRING PHYSICIAN Chana Lee REHAB FACILITY [facility] CLINICAL LIAISON Opal Paz PHYSICIAN REVIEWER Dr. Ian Dc M.D. MR# [id number] NAME STEPHANY BRAN ADDRESS [address] [facility] [id number] DATE OF 1945 AGE 73 SSN# [id number] GENDER female MARITAL STATUS RACE white ADMIT FROM 02 - [facility] PRE-HOSPITAL LIVING SETTING 01 - Home (private home/apt. board/care, assisted living, senior living, transitional living) HOME TYPE AND DETAILS Type of home: single family house # of levels in the residence: 1 # of steps to enter the residence: 0 # of steps within the residence: 0 PRE-HOSPITAL LIVING WITH Family/Relatives FAMILY SUPPORT Yes PRIMARY FAMILY CONTACT NAME JEFE BRAN PRIMARY FAMILY CONTACT PHONE PRIMARY FAMILY CONTACT RELATIONSHIP Spouse PHONE PRIMARY FAMILY CONTACT ON ADM.? no IS PRIMARY FAMILY CONTACT AUTH. REP.? no 1ST EMERGENCY CONTACT JEFE BRAN 1ST CONTACT PHONE 1ST CONTACT RELATIONSHIP Spouse PHONE 1ST CONTACT ON ADM. no IS 1ST CONTACT AUTH. REP.? no PHONE 2ND CONTACT ON ADM.? no PATIENT EMPLOYMENT STATUS Retired (for age) PATIENT EMPLOYER No Employer PAYOR INFORMATION: 1ST PAYOR NAME MEDICARE 1ST PAYOR PHONE [phone] 1ST PAYOR INJURY/ILLNESS DUE TO ACCIDENT? No ANOTHER [employer] RESPONSIBLE? No PRIMARY REHAB/ACUTE DIAGNOSIS: Peripheral Artery Disease ONSET DATE 06/09/2019 REHAB IMPAIRMENT CATEGORY (JOSE): 20 Miscellaneous (Misc) does NOT meet 60% rule PRIMARY DIAGNOSIS-RELATED SURGERIES: No surgeries related to the primary diagnosis were performed. 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 is a 73 yo Right-handed white female. On 06/09/2019 she was admitted to [facility] with diagnosis Peripheral Artery D isease. Her impairment category is Medically Complex Conditions 17 - Circulatory Disorders (17.4). Pre-morbidly, Pt. was independent/mod-I in Locomotion, Safety Awareness, Balance, Social Cognition, T ransfers Control, Sphincter Control, Self-Care, Communication, and Endurance; and she had good Locomo tion, Safety Awareness, Social Cognition, Balance, Transfers Control, Sphincter Control, Self-Care, a nd Communication. Currently, she has deficits of Locomotion, Safety Awareness, Balance, Social Cognition, Transfers Con trol, Sphincter Control, Self-Care, Communication, and Endurance. Pt. is now referred to [facility] for acute in-patient rehabilitation in order to maximize patient's functional independence in activities of daily living, strength, ROM, and mobi lity. Patient has realistic goal of being discharged at assistance level 6-Pop to reside at Home with Fam poppy/Relatives. Stephany Bran is a 73 year old female that lives with her in a 1 jan home. She was independent with ADLs and self care. On 06/09/2019, patient came to the hospital with bilateral lower extremity cellulitis and lymphedema. She had significant pain and swelling in the leg and was admitted to [facility] and treated. She is now medically stable but in need of 24-hour nursing, doctor supervision and oversite participate in 3hours of therapy a day/15 hours per week and receive care with an intensive interdisciplinary approach. 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) PAST SURGICAL HISTORY: EYE SURGERY CERVICAL SPINE SURGERY HYSTERECTOMY APPENDECTOMY FOOT SURGERY MEDICATION ALLERGIES: CIPROFLOXACIN Erythromycin Losartan MACROLIDE Penicillin PENTOXIFYLLINE ENVIRONMENTAL ALLERGIES: None Known - Substance Allergies None Known - Other Allergies None Known CODE STATUS: Full code WEIGHT/HEIGHT/BMI: WEIGHT 287 lbs HEIGHT 5' 7" BMI 44.9 DIET: - Diet Type Regular - Diet - Solid Texture Regular - Diet - Liquid Texture Regular - Tube Feed N/A REVIEW OF SYSTEMS: - Gen Alert and awake Lying in bed No apparent distress Oriented to: person, time, and place - Vital Signs Temperature: 97.5 F SBP/DBP: 102/55 Pulse: 112 Resp: 16 Vital signs stable, afebrile - CVS RRR VITAL SIGNS Temperature: 97.5 F SBP/DBP: 102/55 Pulse: 112 Resp: 16 Vital signs stable, afebrile MEDICATIONS/TREATMENT: Other- See attached MAR (Medication Administration Record). CURRENT SPHINCTER CONTROL: Pre-hospital bladder status: continent # of bladder accidents in the last 7 days prior to screenin Pre-hospital bowel status: continent # of bowel accidents in the last 7 days prior to screenin Last Bowel Movement Date: 06/13/2019 CURRENT LOCOMOTION STATUS: distance walked 48 feet DETAILED CURRENT FUNCTIONAL STATUS: - Bladder accident frequency: Ind - No accidents in the past 7 days - Bowel accident frequency: Ind - No accidents in the past 7 days - Walking score based on distance walked: 0(N/A) score based on distance walked: 1(<=50ft) - Wheelchair score based on distance traveled: 0(N/A) QI SCORES: - Self-Care A. Eating 05-Setup or clean-up assistance B. Oral hygiene 05-Setup or clean-up assistance C. Toileting hygiene 02-Substantial/maximal assistance E. Shower/bathe self 03-Partial/moderate assistance F. Upper body dressing 03-Partial/moderate assistance G. Lower body dressing 02-Substantial/maximal assistance H. Putting on/taking off footwear 02-Substantial/maximal assistance - Mobility A. Roll left and right 03-Partial/moderate assistance B. Sit to lying 02-Substantial/maximal assistance C. Lying to sitting on side of bed 02-Substantial/maximal assistance D. Sit to stand 02-Substantial/maximal assistance E. Chair/dxg-yj-dsuua transfer 02-Substantial/maximal assistance F. Toilet transfer 02-Substantial/maximal assistance G. Car transfer 88-Not attempted due to medical condition or safety concerns I. Walk 10 feet 03-Partial/moderate assistance J. Walk 50 feet with two turns 88-Not attempted due to medical condition or safety concerns K. Walk 150 feet 88-Not attempted due to medical condition or safety concerns L. Walking 10 feet on uneven surfaces 88-Not attempted due to medical condition or safety concerns M. 1 step (curb) 88-Not attempted due to medical condition or safety concerns N. 4 steps 88-Not attempted due to medical condition or safety concerns O. 12 steps 88-Not attempted due to medical condition or safety concerns P. Picking up object 88-Not attempted due to medical condition or safety concerns R. Wheel 50 feet with two turns 88-Not attempted due to medical condition or safety concerns S. Wheel 150 feet 88-Not attempted due to medical condition or safety concerns - Bladder and Bowel Bladder continence 0-Always continent Bowel continence 0-Always continent - Endurance Poor - Balance Fair - Safety Awareness Fair CURRENT FUNC. DEFICITS: Self-Care, Mobility, Endurance, Balance, and Safety Awareness CURRENT / PREVIOUS ASSISTIVE DEVICES: 3-in-1 Commode BSC Dentures Glasses Hospital Bed Raised Toilet Rolling Walker Shower Chair Tub Bench Wheelchair CURRENT USE ASSISTIVE DEVICES: SCDs TEDs HISTORY OF FALLS. HAS THE PATIENT HAD TWO OR MORE FALLS IN THE PAST YEAR OR ANY FALL WITH INJURY IN T HE PAST YEAR?: No PRIOR SURGERY. DID THE PATIENT HAVE MAJOR SURGERY DURING THE 100 DAYS PRIOR TO ADMISSION?: No THERAPY NOTES FROM ACUTE CARE: Attached. SPECIAL NEEDS: - Safety Concerns Skin breakdown precautions needed due to skin breakdown risk PATIENT NEEDS ACTIVE AND ONGOING THERAPEUTIC INTERVENTION OF MULTIPLE THERAPY DISCIPLINES, INCLUDING: - Dietary and Nutrition Adequate Nutrition. Nutritional Education. Nutritional Supplements. PATIENT NEEDS CLOSE MEDICAL SUPERVISION BY A REHABILITATION PHYSICIAN FOR: Coordination of Treatment Team Diabetes Management Medical and Co-Morbidity Management PATIENT REQUIRES 24X7 REHAB NURSING FOR MEDICAL AND FUNCTIONAL MGT. OF THE FOLLOWING DEFICITS: Disease Management Medication Management Patient/Family Education Providing Safe Environment PATIENT REQUIRES INTENSIVE, COORDINATED INTERDISCIPLINARY APPROACH TO REHAB: Arranging Home Equipment/Services Discharge Planning Family Intervention/Training Veneer Manufacturer/Case Management PATIENT REHAB POTENTIAL: Maria Esther BRAN is able and expected to receive 3 hours of individualized therapy daily on at least 5 of ev gomez 7 days Maria Esther BRAN's prognosis for significant practical improvement within a reasonable period of time appear s Good Expected level of measurable improvement will be of a practical value to Maria Esther BRAN's functional capac ity or adaptations to impairments Has a viable Discharge Plan Medically appropriate; condition is sufficiently stable to participate in intensive rehab program DISCHARGE PLAN: - Estimated Length of Stay (days) 13. - Consensus on plan Discharge plan has been discussed with primary caregiver. Patient/Family is in agreement with the darleen n. Primary caregiver is in agreement with the plan. - Patient/Family Goals Return home with assistance. - Planned Living Setting Upon Discharge Home, to live with Family/Relatives. Transitional Living. RECOMMENDED CARE LEVEL: IRF RECOMMENDATION DETAILS: Recommended Admission to Comprehensive Rehabilitation Program to Increase Functional [place] SCREENER'S COMPLETENESS CONFIRMATION: - Screening Confirmation The patient data collection on this preadmission screening form is finished PHYSICIANS REVIEW AND ADMISSION DETERMINATION Admit - Based on my review of the Pre-Admission Screening results, in my medical judgment and experie nce, I concur with the findings and recommend admission to [facility], as this patient requires an IRF level of care. SIGNATURE PANEL: Clinical Liaison - [electronically] signed by Opal Paz on 06/13/2019 at 15:26 (SECURITIES DEALER) Physician Reviewer - [electronically] signed by Dr. Ian Dc M.D. on 06/13/2019 at 16:00 (SECURITIES DEALER )
--- OUTSIDE RECORDS SUMMARY | 2019-06-13 16:47 | XMS REPORT ---
:1945 Author Organization [facility] Address [address] [place] [address] Care Team Providers Name Role Phone Unavailable Unavailable Unavailable Problems This patient has no known problems. Allergies, Adverse Reactions, Alerts This patient has no known allergies or adverse reactions. Medications This patient has no known medications.
[2019-06-13] MEDS ORDERED: ACETAMINOPHEN 325 MG TABLET PO PRN (17:56)
[2019-06-13] MEDS ORDERED: CODEINE 30MG/APAP 300MG TAB PO PRN (17:56)
[2019-06-13] MEDS ORDERED: IPRATROPIUM BROM 0.5MG/2.5ML NEB PRN (17:56)
[2019-06-13] MEDS ORDERED: D50W 25 GM/50 ML SYRINGE/VIAL IV PRN (17:56)
[2019-06-13] MEDS ORDERED: GLUCAGON 1 MG/VIAL IM PRN (17:56)
[2019-06-13] MEDS: RIVAROXABAN 20 MG TABLET PO SCH (19:10)
[2019-06-13] MEDS: CLINDAMYCIN INJ 150 MG in NA CHLORIDE 0.9% 50 ML IV SCH (19:10)
[2019-06-13] MEDS: INSULIN -REGULAR HUMAN 50 UNIT/0.5 ML ML SQ SCH (20:55)
[2019-06-13] MEDS: PRAMIPEXOLE 0.25 MG TAB PO SCH (20:59)
[2019-06-13] MEDS: GUAIFENESIN 600 MG SA TAB PO SCH (21:00)
[2019-06-13] MEDS: ATORVASTATIN 10 MG TAB PO SCH (21:00)
[2019-06-13] MEDS: MONTELUKAST 10 MG TAB PO SCH (21:00)
[2019-06-13] MEDS: METOPROLOL XL 25 MG TAB PO SCH (21:05)
[2019-06-13] MEDS: MIDODRINE HCL 5 MG TABLET PO SCH (21:06)
[2019-06-13] MEDS: PREGABALIN 150 MG CAP PO SCH (21:09)
[2019-06-13] MEDS: BENZONATATE 100 MG CAP PO PRN (22:24)
[2019-06-14] MEDS: CLINDAMYCIN INJ 150 MG in NA CHLORIDE 0.9% 50 ML IV SCH ×3 (00:57→17:00)
[2019-06-14 06:13] LABS: Absolute Lymphocytes (CBC) 1.1 K/uL (0.7-4.9); Basophils % 0.6 % (0-1.3); Hematocrit 28.7 % (36.0-45.0); MPV 9.1 fL (7.6-11.3); RBC Red Blood Cell Count 3.62 M/uL (3.86-4.86)
[2019-06-14 06:28] LABS: Albumin 2.3 g/dL (3.4-5.0); Magnesium 2.1 mg/dL (1.8-2.4); Prealbumin 6.5 mg/dL (20-40)
[2019-06-14] MEDS: PANTOPRAZOLE 40MG TABLET PO SCH ×2 (06:30→06:31)
[2019-06-14] MEDS: LEVOTHYROXINE SOD 0.025 MG TAB PO SCH ×2 (06:30→06:31)
[2019-06-14 06:39] LABS: Potassium 2.8 mmol/L (3.5-5.1)
[2019-06-14] MEDS: INSULIN -REGULAR HUMAN 50 UNIT/0.5 ML ML SQ SCH ×4 (07:30→21:32)
[2019-06-14] MEDS ORDERED: KCL 20 MEQ/100 mL IVPB 20 MEQ/100 ML BAG IV SCH (08:00)
[2019-06-14] MEDS: SPIRONOLACTONE 25 MG TABLET PO SCH (09:11)
[2019-06-14] MEDS: PRAMIPEXOLE 0.25 MG TAB PO SCH ×2 (09:11→20:10)
[2019-06-14] MEDS: PREGABALIN 150 MG CAP PO SCH ×2 (09:12→20:09)
[2019-06-14] MEDS: GUAIFENESIN 600 MG SA TAB PO SCH ×2 (09:12→20:09)
[2019-06-14] MEDS: GLIMEPIRIDE 2 MG TABLET PO SCH ×2 (09:13→17:02)
[2019-06-14] MEDS: METOPROLOL XL 25 MG TAB PO SCH ×2 (09:13→20:10)
[2019-06-14] MEDS: MIDODRINE HCL 5 MG TABLET PO SCH ×3 (09:13→20:10)
[2019-06-14] MEDS: POTASSIUM CL SA 10 MEQ TAB PO SCH ×2 (09:14→20:09)
[2019-06-14] MEDS: FERROUS SULFATE 325 MG TAB PO SCH (09:14)
[2019-06-14] MEDS: ASPIRIN 81 MG CHEWABLE TABLET PO SCH (09:14)
[2019-06-14] MEDS: FUROSEMIDE 40 MG TABLET PO SCH ×2 (09:14→17:01)
[2019-06-14] MEDS: ACETIC ACID 0.25% IRRIG IRR SCH (10:48)
--- NOTE | 2019-06-14 15:13 | FAST ---
ENCOUNTER DATE AND TIME: 06/14/2019 08:00 (FLAP CURER) NAME IVETT FITZPATRICK DATE OF : 1945 DATE OF ADMISSION: 06/13/2019 16:44 (FLAP CURER) PHONE: AGE: 73 N# [id number] GENDER: Female ENCOUNTER PHYSICIAN: Dr. Ian Dc M.D. ADMISSION DIAGNOSIS: - Medically Complex Conditions 17 - Circulatory Disorders (17.4) Peripheral Artery Disease. ROLL LEFT AND RIGHT: ROLL LEFT AND RIGHT - STEP 1: Does the patient complete the activity by him/herself with no assistance (physical, verbal/nonverbal cueing, setup/clean-up)? No. ROLL LEFT AND RIGHT - STEP 2: Does the patient need only setup/clean-up assistance from one helper? No. ROLL LEFT AND RIGHT - STEP 3: Does the patient need only verbal/nonverbal cueing or touching/steadying/contact guard assistance fro m one helper? No. ROLL LEFT AND RIGHT - STEP 4: Does the patient need physical assistance - for example lifting or trunk support from one helper - wi th the helper providing less than half of the effort? No. ROLL LEFT AND RIGHT - STEP 5: Does the patient need physical assistance - for example lifting or trunk support from one helper - wi th the helper providing more than half of the effort? Yes. 1. [id number] ADMISSION PERFORMANCE: Substantial/maximal assistance CODE: 02 SIT TO LYING: SIT TO LYING - STEP 1: Does the patient complete the activity by him/herself with no assistance (physical, verbal/nonverbal cueing, setup/clean-up)? No. SIT TO LYING - STEP 2: Does the patient need only setup/clean-up assistance from one helper? No. SIT TO LYING - STEP 3: Does the patient need only verbal/nonverbal cueing or touching/steadying/contact guard assistance fro m one helper? No. SIT TO LYING - STEP 4: Does the patient need physical assistance - for example lifting or trunk support from one helper - wi th the helper providing less than half of the effort? Yes. 1. [id number] ADMISSION PERFORMANCE: Partial/moderate assistance CODE: 03 LYING TO SITTING: LYING TO SITTING ON SIDE OF BED - STEP 1: Does the patient complete the activity by him/herself with no assistance (physical, verbal/nonverbal cueing, setup/clean-up)? No. LYING TO SITTING ON SIDE OF BED - STEP 2: Does the patient need only setup/clean-up assistance from one helper? No. LYING TO SITTING ON SIDE OF BED - STEP 3: Does the patient need only verbal/nonverbal cueing or touching/steadying/contact guard assistance fro m one helper? No. LYING TO SITTING ON SIDE OF BED - STEP 4: Does the patient need physical assistance - for example lifting or trunk support from one helper - wi th the helper providing less than half of the effort? No. LYING TO SITTING ON SIDE OF BED - STEP 5: Does the patient need physical assistance - for example lifting or trunk support from one helper - wi th the helper providing more than half of the effort? Yes. 1. [id number] ADMISSION PERFORMANCE: Substantial/maximal assistance CODE: 02 SIT TO STAND: SIT TO STAND - STEP 1: Does the patient complete the activity by him/herself with no assistance (physical, verbal/nonverbal cueing, setup/clean-up)? No. SIT TO STAND - STEP 2: Does the patient need only setup/clean-up assistance from one helper? No. SIT TO STAND - STEP 3: Does the patient need only verbal/nonverbal cueing or touching/steadying/contact guard assistance fro m one helper? No. SIT TO STAND - STEP 4: Does the patient need physical assistance - for example lifting or trunk support from one helper - wi th the helper providing less than half of the effort? Yes. 1. [id number] ADMISSION PERFORMANCE: Partial/moderate assistance CODE: 03 TRANSFERS: BED, CHAIR: CHAIR/[id number] TRANSFER - STEP 1: Does the patient complete the activity by him/herself with no assistance (physical, verbal/nonverbal cueing, setup/clean-up)? No. CHAIR/[id number] TRANSFER - STEP 2: Does the patient need only setup/clean-up assistance from one helper? No. CHAIR/[id number] TRANSFER - STEP 3: Does the patient need only verbal/nonverbal cueing or touching/steadying/contact guard assistance fro m one helper? No. CHAIR/[id number] TRANSFER - STEP 4: Does the patient need physical assistance - for example lifting or trunk support from one helper - wi th the helper providing less than half of the effort? Yes. 1. [id number] ADMISSION PERFORMANCE: Partial/moderate assistance CODE: 03 TRANSFER TOILET: TOILET TRANSFER - STEP 1: Does the patient complete the activity by him/herself with no assistance (physical, verbal/nonverbal cueing, setup/clean-up)? No. TOILET TRANSFER - STEP 2: Does the patient need only setup/clean-up assistance from one helper? No. TOILET TRANSFER - STEP 3: Does the patient need only verbal/nonverbal cueing or touching/steadying/contact guard assistance fro m one helper? No. TOILET TRANSFER - STEP 4: Does the patient need physical assistance - for example lifting or trunk support from one helper - wi th the helper providing less than half of the effort? Yes. 1. [id number] ADMISSION PERFORMANCE: Partial/moderate assistance CODE: 03 TRANSFERS: CAR: Not attempted due to environmental limitations (e.g., lack of equipment, weather constraints) CODE: 10 WALK 10 FEET: WALK 10 FEET - STEP 1: Does the patient complete the activity by him/herself with no assistance (physical, verbal/nonverbal cueing, setup/clean-up)? No. WALK 10 FEET - STEP 2: Does the patient need only setup/clean-up assistance from one helper? No. WALK 10 FEET - STEP 3: Does the patient need only verbal/nonverbal cueing or touching/steadying/contact guard assistance fro m one helper? Yes. 1. [id number] ADMISSION PERFORMANCE: Supervision or touching assistance CODE: 04 WALK 50 FEET: Not attempted due to medical condition or safety concerns CODE: 88 WALK 150 FEET: Not attempted due to medical condition or safety concerns CODE: 88 WALK 10 FEET UNEVEN: Not attempted due to medical condition or safety concerns CODE: 88 1 STEP (CURB): Not attempted due to medical condition or safety concerns CODE: 88 PICKING UP OBJECT: Not attempted due to medical condition or safety concerns CODE: 88 DOES THE PATIENT USE A WHEELCHAIR/SCOOTER? Q1. DOES THE PATIENT USE A WHEELCHAIR/SCOOTER?: Yes CODE: 1 WHEEL 50 FEET WITH TWO TURNS: WHEEL 50 FEET WITH TWO TURNS - STEP 1: Does the patient complete the activity by him/herself with no assistance (physical, verbal/nonverbal cueing, setup/clean-up)? No. WHEEL 50 FEET WITH TWO TURNS - STEP 2: Does the patient need only setup/clean-up assistance from one helper? No. WHEEL 50 FEET WITH TWO TURNS - STEP 3: Does the patient need only verbal/nonverbal cueing or touching/steadying/contact guard assistance fro m one helper? No. WHEEL 50 FEET WITH TWO TURNS - STEP 4: Does the patient need physical assistance - for example lifting or trunk support from one helper - wi th the helper providing less than half of the effort? Yes. 1. [id number] ADMISSION PERFORMANCE: Partial/moderate assistance CODE: 03 INDICATE THE TYPE OF WHEELCHAIR/SCOOTER USED: RR1. INDICATE THE TYPE OF WHEELCHAIR/SCOOTER USED.: Manual CODE: 1 WHEEL 150 FEET: Not attempted due to medical condition or safety concerns CODE: 88 INDICATE THE TYPE OF WHEELCHAIR/SCOOTER USED: CODE: EXPR BLADDER AND BOWEL: CODE: EXPR CODE: EXPR SIGNATURE PANEL: The following modified sections: 1. [id number] Admission Performance, 1. [id number] Admission Performance, 1. [id number] Admission Performance, 1. [id number] Admission Performance, 1. [id number] Admission Performance, 1. [id number] Admission Performance, 1. [id number] Admission Performance, 1. [id number] Admission Performance , 1. [id number] Admission Performance, 1. [id number] Admission Performance, Q1. Does the patient use a whee lchair/scooter?, 1. [id number] Admission Performance, 1. [id number] Admission Performance, RR1. Indicate th e type of wheelchair/scooter used., Code were [electronically] signed by Colten Wooten PT on TueJun 14 2019 15:13:26 GMT-0600 (Central Standard Time)
[2019-06-14] MEDS: guaiFENesin 100 MG/5 ML UCUP PO PRN (16:15)
--- NOTE | 2019-06-14 16:37 | R.HP ---
FACILITY: [facility] ENCOUNTER DATE AND TIME: 06/14/2019 16:29 (DUDE WRANGLER) MR#: [id number] NAME STEPHANY BRAN ADDRESS: [address] [place] [address]: [place]IP [id number] PHONE: DATE OF : 1945 AGE: 73 SSN# [id number] GENDER: Female DEXTERITY Right-handed MARITAL STATUS RACE White PRE-HOSPITAL LIVING SETTING 01 - Home (private home/apt. board/care, assisted living, senior care, transitional living) PRE-HOSPITAL LIVING WITH Family/Relatives ENCOUNTER PHYSICIAN: Dr. aIn Dc M.D. REFERRING DOCTOR: dylan Lee DATE OF ADMISSION: 06/13/2019 16:44 (DUDE WRANGLER) REFERRING FACILITY [facility] HOME TYPE AND DETAILS: Type of home: single family house # of levels in the residence: 1 # of steps to enter the residence: 0 # of steps within the residence: 0 ADMISSION DIAGNOSIS: Peripheral Artery Disease ONSET DATE: 06/09/2019 PRIMARY DIAGNOSIS-RELATED SURGERIES: No surgeries related to the primary diagnosis were performed. SECONDARY/COMORBID DIAGNOSES (TIERED): - Tier 3 Type 2 diabetes mellitus with diabetic neuropathy, unspecified (E11.40) NEUROPATHY GLAUCOMA - N/A Pneumonia HTN HLD HYPOTHYROIDISM ATRIAL FIBRILLATION HISTORY OF PRESENT ILLNESS (HPI): Pt. is a 73 yo Right-handed white female. On 06/09/2019 she was admitted to [facility] with diagnosis Peripheral Artery D isease. Her impairment category is Medically Complex Conditions 17 - Circulatory Disorders (17.4). Pre-morbidly, Pt. was independent/mod-I in Locomotion, Safety Awareness, Balance, Social Cognition, T ransfers Control, Sphincter Control, Self-Care, Communication, and Endurance; and she had good Locomo tion, Safety Awareness, Social Cognition, Balance, Transfers Control, Sphincter Control, Self-Care, a nd Communication. Currently, she has deficits of Locomotion, Safety Awareness, Balance, Social Cognition, Transfers Con trol, Sphincter Control, Self-Care, Communication, and Endurance. Pt. is now referred to [facility] for acute in-patient rehabilitation in order to maximize patient's functional independence in activities of daily living, strength, ROM, and mobi lity. Patient has realistic goal of being discharged at assistance level 6-Pop to reside at Home with Fam poppy/Relatives. Stephany Bran is a 73 year old female that lives with her in a 1 jan home. She was independent with ADLs and self care. On 06/09/2019, patient came to the hospital with bilateral lower extremity cellulitis and lymphedema. She had significant pain and swelling in the leg and was admitted to [facility] and treated. She is now medically stable but in need of 24-hour nursing, doctor supervision and oversite participate in 3hours of therapy a day/15 hours per week and receive care with an intensive interdisciplinary approach. MEDICATION ALLERGIES: CIPROFLOXACIN Erythromycin Losartan MACROLIDE Penicillin PENTOXIFYLLINE ENVIRONMENTAL ALLERGIES: None Known - Substance Allergies None Known - Other Allergies None Known PAST MEDICAL HISTORY: ATRIAL FIBRILLATION GLAUCOMA HLD HTN HYPOTHYROIDISM NEUROPATHY Pneumonia Type 2 diabetes mellitus with diabetic neuropathy, unspecified (E11.40) PAST SURGICAL HISTORY: EYE SURGERY CERVICAL SPINE SURGERY HYSTERECTOMY APPENDECTOMY FOOT SURGERY FAMILY HISTORY: Family history is not contributory. SOCIAL HISTORY: - Home Living Family/Relatives REVIEW OF SYSTEMS: - Gen No Chills Fatigue No Fever - Eyes No Double Vision No itchiness - ENMT No Difficulty Swallowing - CVS No Chest Discomfort No Chest Pain Fatigue No Weight Gain - Resp No Cough No Shortness of Breath - GI Continent No Abdominal Pain No Constipation No Diarrhea - Continent No Kidney Pain No Painful Urination No Urinary Urgency - MSK No Joint Pain Muscle Cramps Stiffness - Skin No Itching No Rash No Suspicious Lesions - Neuro Coordination Difficulty No Difficulty with Concentration No Memory Loss No Seizures Weakness - Psych No Anxiety No Depression No HIV Exposure No Persistent Infections No Seasonal Allergies - Endo No Cold/Heat Intolerance No Excessive Hunger No Excessive Thirst No Excessive Urination PHYSICAL EXAM - Gen Alert and awake Lying in bed No apparent distress Oriented to: person, time, and place - Skin No skin breakdown. Normacephalic - Eyes No abnormalities - ENMT No abnormalities - Neck No abnormalities - CVS RRR - Chest No abnormalities - Resp Clear to auscultation - Abd Soft - GI Non distended Deferred - No abnormalities - Ext Mild bilateral lower extremity edema. - MSK 4+/5 weakness in both lower extremities. - Neuro No focal deficits - Psych No abnormalities VITAL SIGNS Temperature: 97.5 F SBP/DBP: 102/55 Pulse: 112 Resp: 16 NURSING: - Shower allowing shower - Lab Results blood Sugar Check ACHS ACTIVITIES OOB only with supervision QI SCORES: - Self-Care A. Eating 05-Setup or clean-up assistance B. Oral hygiene 05-Setup or clean-up assistance C. Toileting hygiene 02-Substantial/maximal assistance E. Shower/bathe self 03-Partial/moderate assistance F. Upper body dressing 03-Partial/moderate assistance G. Lower body dressing 02-Substantial/maximal assistance H. Putting on/taking off footwear 02-Substantial/maximal assistance - Mobility A. Roll left and right 03-Partial/moderate assistance B. Sit to lying 02-Substantial/maximal assistance C. Lying to sitting on side of bed 02-Substantial/maximal assistance D. Sit to stand 02-Substantial/maximal assistance E. Chair/spv-us-bweqj transfer 02-Substantial/maximal assistance F. Toilet transfer 02-Substantial/maximal assistance G. Car transfer 88-Not attempted due to medical condition or safety concerns I. Walk 10 feet 03-Partial/moderate assistance J. Walk 50 feet with two turns 88-Not attempted due to medical condition or safety concerns K. Walk 150 feet 88-Not attempted due to medical condition or safety concerns L. Walking 10 feet on uneven surfaces 88-Not attempted due to medical condition or safety concerns M. 1 step (curb) 88-Not attempted due to medical condition or safety concerns N. 4 steps 88-Not attempted due to medical condition or safety concerns O. 12 steps 88-Not attempted due to medical condition or safety concerns P. Picking up object 88-Not attempted due to medical condition or safety concerns R. Wheel 50 feet with two turns 88-Not attempted due to medical condition or safety concerns S. Wheel 150 feet 88-Not attempted due to medical condition or safety concerns - Bladder and Bowel Bladder continence 0-Always continent Bowel continence 0-Always continent - Endurance Poor - Balance Fair - Safety Awareness Fair CURRENT FUNC. DEFICITS: Self-Care, Mobility, Endurance, Balance, and Safety Awareness MEDICATIONS: - Other See attached MAR (Medication Administration Record) ASSESSMENT: Pt. is a 73 yo Right-handed white female.On 06/09/2019 she was admitted to [facility] with diagnosis Peripheral Artery Disease.Her impairment category is Medically Complex Conditio ns 17 - Circulatory Disorders (17.4).Pre-morbidly, Pt. was independent/mod-I in Locomotion, Safety A wareness, Balance, Social Cognition, Transfers Control, Sphincter Control, Self-Care, Communication, and Endurance; and she had good Locomotion, Safety Awareness, Social Cognition, Balance, Transfers Co ntrol, Sphincter Control, Self-Care, and Communication.Currently, she has deficits of Locomotion, Saf ety Awareness, Balance, Social Cognition, Transfers Control, Sphincter Control, Self-Care, Communicat ion, and Endurance.Pt. is now referred to [facility] for acute in-patient reha bilitation in order to maximize patient's functional independence in activities of daily living, stre ngth, ROM, and mobility.- Rehab Goal Patient has realistic goal of being discharged at assistance level 6-Pop to reside at Home with Fam poppy/Relatives. Stephany Bran is a 73 year old female that lives with her in a 1 jan home. She was independent with ADLs and self care. On 06/09/2019, patient came to the hospital with bilateral lower extremity cellulitis and lymphedema. She had significant pain and swelling in the leg and was admitted to [facility] and treated. She is now medically stable but in need of 24-hour nursing, doctor supervision and oversite participate in 3hours of therapy a day/15 hours per week and receive care with an intensive interdisciplinary approach.REHAB PLAN: - Physical Therapy Gait dysfunction - to improve, our physical therapists will perform initial evaluation of pt's status upon admission and devise an individualized program for Gait Training, and Wheel Chair mobility Inability to transfer - to improve, our physical therapists will perform initial evaluation of pt's s tatus upon admission and devise an individualized program for Bed mobility Need for home safety evaluation - to improve, our physical therapists will perform initial evaluation of pt's status upon admission and devise an individualized program for Home Evaluation Need in caregiver upon discharge - to improve, our physical therapists will perform initial evaluatio n of pt's status upon admission and devise an individualized program for Caregiver Training New precaution - to improve, our physical therapists will perform initial evaluation of pt's status u keren admission and devise an individualized program for Patient precaution education Edema - to improve, our physical therapists will perform initial evaluation of pt's status upon admi ssion and devise an individualized program for Elevation Training, and Lymphedema Therapy Poor balance - to improve, our physical therapists will perform initial evaluation of pt's status upo n admission and devise an individualized program for Balance Training Poor endurance - to improve, our physical therapists will perform initial evaluation of pt's status u keren admission and devise an individualized program for Endurance Training Weakness - to improve, our physical therapists will perform initial evaluation of pt's status upon ad mission and devise an individualized program for Aquatic Therapy, Neuromuscular Reeducation, and Stre ngthening Achieving independence - to improve, our physical therapists will perform initial evaluation of pt's status upon admission and devise an individualized program for Community Reintegration Activities - Occupational Therapy ADL deficits - to improve, our occupation therapists will perform initial evaluation of pt's status u keren admission and devise an individualized program for Bathing, Bed mobility, Community Reintegration , Cooking, Dressing, Eating, Fine Motor Skills, Grooming, Homemaking, Kitchen Mobility, Laundry, Abiola ent Education, Safety Awareness, Splinting - Positioning, Transfers(Toilet, Tub, Shower), and Wheel C hair Management Cognitive deficits - to improve, our occupation therapists will perform initial evaluation of pt's st atus upon admission and devise an individualized program for Cognition - orientation Need for pediatric care coordinator - to improve, our occupation therapists will perform initial evaluation of pt's s tatus upon admission and devise an individualized program for Caregiver Training Weakness - to improve, our occupation therapists will perform initial evaluation of pt's status upon admission and devise an individualized program for Aquatic Therapy, Balance, Endurance, UE ROM, and U E strengthening MEDICAL PLAN: - Diet Type Start Regular - Diet - Liquid Texture Start Regular - Tube Feed Start N/A - Lab Results blood Sugar Check ACHS - Other See attached MAR (Medication Administration Record) - Diet - Solid Texture Regular - Shower shower DISCHARGE PLAN: - Estimated Length of Stay (days) 13. - Consensus on plan Discharge plan has been discussed with primary caregiver. Patient/Family is in agreement with the darleen n. Primary caregiver is in agreement with the plan. - Patient/Family Goals Return home with assistance. - Planned Living Setting Upon Discharge Home, to live with Family/Relatives. Transitional Living. SIGNATURE PANEL: (DUDE WRANGLER)
--- NOTE | 2019-06-14 16:39 | PAPE ---
PATIENT: [facility] MR# [id number] REFERRING DOCTOR dylan Lee EVALUATION DATE AND TIME 06/14/2019 16:38 (EYEGLASS LENS CUTTER) NAME IVETT FITZPATRICK DATE OF 1945 AGE 73 PHONE SSN# [id number] GENDER female EVALUATING PHYSICIAN Dr. Ian Dc M.D. ADMISSION DIAGNOSIS: Peripheral Artery Disease ONSET DATE 06/09/2019 SECONDARY/COMORBID DIAGNOSES TIERED: - Tier 3 Type 2 diabetes mellitus with diabetic neuropathy, unspecified (E11.40) NEUROPATHY GLAUCOMA - N/A Pneumonia HTN HLD HYPOTHYROIDISM ATRIAL FIBRILLATION POST-ADMISSION FUNCTIONAL/MEDICAL STATUS: - Bladder Same accident frequency: Ind - No accidents in the past 7 days - Bowel Same accident frequency: Ind - No accidents in the past 7 days - Walking Same score based on distance walked: 0(N/A) Same score based on distance walked: 1(<=50ft) - Wheelchair Same score based on distance traveled: 0(N/A) STATUS CHANGE EVALUATION: No change in Functional or Medical Status is identified compared with Pre-Admission screening. PATIENT NEEDS CLOSE MEDICAL SUPERVISION BY A REHABILITATION PHYSICIAN FOR: Coordination of Treatment Team Diabetes Management Medical and Co-Morbidity Management PATIENT REQUIRES 24X7 REHAB NURSING FOR MEDICAL AND FUNCTIONAL MGT. OF THE FOLLOWING DEFICITS: Disease Management Medication Management Patient/Family Education Providing Safe Environment PATIENT REQUIRES INTENSIVE, COORDINATED INTERDISCIPLINARY APPROACH TO REHAB: Arranging Home Equipment/Services Discharge Planning Family Intervention/Training Behavioral Instructor/Case Management LIST OF IDENTIFIED AND POTENTIAL PROBLEMS: Alteration in leisure activities Bladder, Incontinence Bowel, Incontinence Diabetes, Hyperglycemia/hypoglycemia Issues Infection, Actual or Potential Mobility Impaired Pain, Alteration in Comfort Self Care Deficit Skin Integrity, Actual or Potential Urinary Tract Infection (UTI), Actual or Potential RISK FOR COMPLICATIONS - Pneumonia Respiratory failure. Sepsis. - Neuropathy Falls. Sensory Deficits. Skin breakdown. - Atrial Fibrillation CVA. Heart failure. Limb embolus. INTERVENTIONS - Pneumonia Cultures. Fluid management. Labs. Oxygen. Respiratory management. X-rays. - Neuropathy Education. Medications. Safety. - Atrial Fibrillation Anticoagulation. Medications. VS. PATIENT COULD BE AT RISK FOR COMPLICATIONS FROM ADVERSE MEDICAL CONDITIONS DUE TO HIS/HER COMORBIDITI ES AND THE RIGORS OF THE INTENSIVE REHABILLITATION PROGRAM. METHODS OR INTERVENTIONS TO AVOID COMPLIC ATIONS INCLUDE: - Infection Clinical staff to assess and manage the signs and symptoms of infection including fever, redness, war mth, etc. - Urinary Tract Infection - Falls Patient will be evaluated for Fall Precautions and will be placed on Fall Precautions as indicated pe r protocol. - Skin Breakdown Nursing will assess skin daily using assessment tool and will place on Skin Breakdown Precautions as indicated per protocol. - Pain Clinical staff may employ non-medication methods such as massage, distraction, decrease stimulus, etc . as needed. Clinical staff will assess patient's pain level every shift per protocol to assess and e nsure pain management effectiveness. Medications will be given and the pain level re-assessed. PRELIMINARY PLAN OF CARE: - Physical Therapy Patient needs Physical Therapy for a daily minimum of 1.5 hours at least 5 out of 7 days, to improve: Mobility, Strengthening, Transfers, Stretching, ROM, Endurance, Ability to manage stairs, Gait, and Balance. - Speech Therapy Patient needs Speech Therapy for a daily minimum of 0.5 hours at least 5 out of 7 days, to improve: S wallowing, Cognition, Language Skills, and Compensatory Strategies. - Rehabilitation Nursing Patient requires 24x7 Rehabilitation Nursing for: Pain Issues, Identifying and preventing risk factor s, Monitoring and reporting current medical conditions, Assisting with ambulation and transfer, Charly ting with all ADL-s, Teaching patients about disease process and medications, Family teaching, Provid ing safe environment, Bowel and Bladder Issues, Skin Integrity, and Medication Management. Patient needs Behavioral Instructor and/or Case Management for: Discharge Planning, Arranging Home Equipmen t or Services, and Family Interventions. - Dietary and Nutrition Services Patient needs Dietary and Nutrition Services for: Adequate Nutrition, Nutritional Supplements, and Nu tritional Education. - Occupational Therapy Patient needs Occupational Therapy for a daily minimum of 1.5 hours at least 5 out of 7 days, to impr ove Activities of Daily Living, including: Eating, Grooming, Bathing, Dressing, Toileting, Toilet Tra nsfers, Community Reintegration, Higher functional activities, Adaptive Equipment, Splinting, Househo ld Tasks, and Other activities as determined. QI SCORES: - Self-Care A. Eating 05-Setup or clean-up assistance B. Oral hygiene 05-Setup or clean-up assistance C. Toileting hygiene 02-Substantial/maximal assistance E. Shower/bathe self 03-Partial/moderate assistance F. Upper body dressing 03-Partial/moderate assistance G. Lower body dressing 02-Substantial/maximal assistance H. Putting on/taking off footwear 02-Substantial/maximal assistance - Mobility A. Roll left and right 03-Partial/moderate assistance B. Sit to lying 02-Substantial/maximal assistance C. Lying to sitting on side of bed 02-Substantial/maximal assistance D. Sit to stand 02-Substantial/maximal assistance E. Chair/gtj-wp-wsvoz transfer 02-Substantial/maximal assistance F. Toilet transfer 02-Substantial/maximal assistance G. Car transfer 88-Not attempted due to medical condition or safety concerns I. Walk 10 feet 03-Partial/moderate assistance J. Walk 50 feet with two turns 88-Not attempted due to medical condition or safety concerns K. Walk 150 feet 88-Not attempted due to medical condition or safety concerns L. Walking 10 feet on uneven surfaces 88-Not attempted due to medical condition or safety concerns M. 1 step (curb) 88-Not attempted due to medical condition or safety concerns N. 4 steps 88-Not attempted due to medical condition or safety concerns O. 12 steps 88-Not attempted due to medical condition or safety concerns P. Picking up object 88-Not attempted due to medical condition or safety concerns R. Wheel 50 feet with two turns 88-Not attempted due to medical condition or safety concerns S. Wheel 150 feet 88-Not attempted due to medical condition or safety concerns - Bladder and Bowel Bladder continence 0-Always continent Bowel continence 0-Always continent - Endurance Poor - Balance Fair - Safety Awareness Fair POTENTIAL FUNCTIONAL GOALS FOR PATIENT TO ACHIEVE BY DISCHARGE: - Safety Precaution Patient will remain free from falls or injury at time of discharge. - Bed Mobility Patient will perform bed mobility at 4-Nasreen level of assistance. - Transfers Patient will complete transfers from bed to chair at 4-Nasreen level of assistance. - Mobility Patient will ambulate 150 ft with 4-Nasreen level of assistance with RW. PATIENT REHAB POTENTIAL Maria Esther FITZPATRICK is able and expected to receive 3 hours of individualized therapy daily on at least 5 gomez 7 days Maria Esther FITZPATRICK's prognosis for significant practical improvement within a reasonable period of time appear s Good Expected level of measurable improvement will be of a practical value to Maria Esther FITZPATRICK's functional capac ity or adaptations to impairments Has a viable Discharge Plan Medically appropriate; condition is sufficiently stable to participate in intensive rehab program DISCHARGE PLAN: - Estimated Length of Stay (days) 13. - Consensus on plan Discharge plan has been discussed with primary caregiver. Patient/Family is in agreement with the darleen n. Primary caregiver is in agreement with the plan. - Patient/Family Goals Return home with assistance. - Planned Living Setting Upon Discharge Home, to live with Family/Relatives. Transitional Living. CONCLUSION ON REHABILITATION NECESSITY: I have evaluated patient's pre-admission functional status and, comparing it to the patient's post-ad mission functional status now, I conclude that the pre-admission assessment was accurate. Patient's c ondition on admission supports the medical necessity of admission to IR[facility]. It is safe to proceed with patient's therapy program. SIGNATURE PANEL: (EYEGLASS LENS CUTTER)
[2019-06-14] MEDS: RIVAROXABAN 20 MG TABLET PO SCH (17:01)
[2019-06-14] MEDS: NYSTATIN PWDR 100000 UNIT/GM TOP SCH (20:00)
[2019-06-14] MEDS: MONTELUKAST 10 MG TAB PO SCH (20:10)
[2019-06-14] MEDS: PROMOD 30 ML DOSE PO SCH (20:13)
[2019-06-14] MEDS: ATORVASTATIN 10 MG TAB PO SCH (20:16)
[2019-06-14] MEDS: BENZONATATE 100 MG CAP PO PRN (21:52)
[2019-06-15] MEDS: CLINDAMYCIN INJ 150 MG in NA CHLORIDE 0.9% 50 ML IV SCH ×3 (00:32→16:54)
[2019-06-15] MEDS: LEVOTHYROXINE SOD 0.025 MG TAB PO SCH (07:08)
[2019-06-15] MEDS: PANTOPRAZOLE 40MG TABLET PO SCH (07:09)
[2019-06-15] MEDS: INSULIN -REGULAR HUMAN 50 UNIT/0.5 ML ML SQ SCH ×4 (07:30→22:45)
[2019-06-15 08:00] LABS: Potassium 2.7 mmol/L (3.5-5.1)
[2019-06-15] MEDS: POTASSIUM CL SA 10 MEQ TAB PO SCH ×3 (08:00→21:40)
[2019-06-15] MEDS: NYSTATIN PWDR 100000 UNIT/GM TOP SCH ×2 (08:00→21:41)
[2019-06-15] MEDS: GLIMEPIRIDE 2 MG TABLET PO SCH ×2 (08:26→16:54)
[2019-06-15] MEDS: PREGABALIN 150 MG CAP PO SCH ×2 (08:27→21:40)
[2019-06-15] MEDS: FERROUS SULFATE 325 MG TAB PO SCH (08:27)
[2019-06-15] MEDS: ASPIRIN 81 MG CHEWABLE TABLET PO SCH (08:27)
[2019-06-15] MEDS: PRAMIPEXOLE 0.25 MG TAB PO SCH ×2 (08:28→21:39)
[2019-06-15] MEDS: GUAIFENESIN 600 MG SA TAB PO SCH ×2 (08:28→21:39)
[2019-06-15] MEDS: ACETAMINOPHEN 500 MG TAB PO PRN (08:29)
[2019-06-15] MEDS: MIDODRINE HCL 5 MG TABLET PO SCH ×3 (08:29→21:39)
[2019-06-15] MEDS: SPIRONOLACTONE 25 MG TABLET PO SCH (08:29)
[2019-06-15] MEDS: FE SULF/FA/VIT B COMP & C TAB PO SCH (08:29)
[2019-06-15] MEDS: METOPROLOL XL 25 MG TAB PO SCH ×2 (08:30→21:38)
[2019-06-15] MEDS: PROMOD 30 ML DOSE PO SCH ×2 (08:31→21:40)
[2019-06-15] MEDS: ACETIC ACID 0.25% IRRIG IRR SCH (08:34)
[2019-06-15] MEDS ORDERED: POTASSIUM CL SA 10 MEQ TAB PO ONE (09:00)
[2019-06-15] MEDS: FUROSEMIDE 20 MG TABLET PO SCH ×2 (09:03→16:57)
--- NOTE | 2019-06-15 09:50 | P.RH.PN ---
Estimated Length of Stay: 15 Expected Discharge Date: 06/28/19 Discharge Disposition Plan: Home Family Support: Yes Skilled Nursing Goal: Mobility, Transfers, Self Care Vital Signs: Last Vital Signs Temp 97.3 F 06/14/19 19:35 Pulse 100 H 06/15/19 08:30 Resp 16 06/14/19 19:35 BP 126/66 06/15/19 08:30 Pulse Ox 96 06/14/19 19:35 Laboratory: Laboratory Last Values WBC 11.1 K/uL (4.3-10.9) H 06/14/19 05:50 RBC 3.62 M/uL (3.86-4.86) L 06/14/19 05:50 Hgb 9.5 g/dL (12.0-15.0) L 06/14/19 05:50 Hct 28.7 % (36.0-45.0) L 06/14/19 05:50 MCV 79.4 fL (80-100) L 06/14/19 05:50 MCH 26.2 pg (27.0-35.0) L 06/14/19 05:50 MCHC 33.0 g/dL (32.0-36.0) 06/14/19 05:50 RDW 17.4 % (12.1-15.2) H 06/14/19 05:50 Plt Count 235 K/uL (152-406) 06/14/19 05:50 MPV 9.1 fL (7.6-11.3) 06/14/19 05:50 Neutrophils % 67.5 % (41.7-73.7) 06/14/19 05:50 Lymphocytes % 10.0 % (15.3-44.8) L 06/14/19 05:50 Monocytes % 8.8 % (3.3-12.3) 06/14/19 05:50 Eosinophils % 13.1 % (0-4.4) H 06/14/19 05:50 Basophils % 0.6 % (0-1.3) 06/14/19 05:50 Absolute Neutrophils 7.5 K/uL (1.8-8.0) 06/14/19 05:50 Absolute Lymphocytes 1.1 K/uL (0.7-4.9) 06/14/19 05:50 Absolute Monocytes 1.0 K/uL (0.1-1.3) 06/14/19 05:50 Absolute Eosinophils 1.5 K/uL (0-0.5) H 06/14/19 05:50 Absolute Basophils 0.1 K/uL (0-0.5) 06/14/19 05:50 Sodium 141 mmol/L (136-145) 06/15/19 06:40 Potassium 2.7 mmol/L (3.5-5.1) L* 06/15/19 06:40 Chloride 102 mmol/L (98-107) 06/15/19 06:40 Carbon Dioxide 35 mmol/L (21-32) H 06/15/19 06:40 BUN 15 mg/dL (7-18) 06/15/19 06:40 Creatinine 1.02 mg/dL (0.55-1.3) 06/15/19 06:40 Estimated GFR 53 mL/min (=/>90) L 06/15/19 06:40 Glucose 205 mg/dL (74-106) H 06/15/19 06:40 POC Glucose 200 mg/dl (65-120) H 06/15/19 07:32 Calcium 8.5 mg/dL (8.5-10.1) 06/15/19 06:40 Magnesium 2.1 mg/dL (1.8-2.4) 06/14/19 05:50 Albumin 2.3 g/dL (3.4-5.0) L 06/14/19 05:50 Prealbumin 6.5 mg/dL (20-40) L 06/14/19 05:50 Weight: 262 lb Wound Present: Yes Closed Surgical Incision Present: No Negative Pressure Wound Therapy Present: No Physician Update: Her K remains low at 2.7. She will get Kcl 20 meq bid and extra 20 meq now. She is doing ok with physical and occupational therapy but is at maximum assistance. She uses O2 via nasal cannula. She has carpal tunnel and will get wrist splints. Medical Issues: Patient had cellulitis on bilateral lower extremities. on Clindamycin 150mg IVPB Q8H. Always continent with bladder and bowel. Functional Improvement: pt presents with moderate strength deficits in bilateral LEs with the L LE experiencing greater deficits due to pain. pt demonstrates poor trunk strength. pt does not seem all that motivated, which may pose a barrier for progress. pt does have good potential and will improve well if she participates. pt demonstrates reduced balance and stability. pt experiences poor tolerance to functional activity due to fatigue, pain, and weakness. Skilled PT services are necessary to address the above mentioned impairments and functional limitations. Summary: Patient's care plan and nursing home goals have been reviewed and revised as necessary. Please see the Rehabilitation Signature page for all necessary signatures.
[2019-06-15] MEDS: FUROSEMIDE 40 MG TABLET PO SCH (10:21)
[2019-06-15] MEDS: BENZONATATE 100 MG CAP PO PRN (16:56)
[2019-06-15] MEDS: RIVAROXABAN 20 MG TABLET PO SCH (16:58)
[2019-06-15] MEDS: MONTELUKAST 10 MG TAB PO SCH (21:38)
[2019-06-15] MEDS: ATORVASTATIN 10 MG TAB PO SCH (21:39)
[2019-06-15] MEDS: HYDROCORTISONE 1 % CREAM 30GM TOP PRN (21:43)
[2019-06-16] MEDS: CLINDAMYCIN INJ 150 MG in NA CHLORIDE 0.9% 50 ML IV SCH ×3 (01:09→16:44)
[2019-06-16] MEDS: BENZONATATE 100 MG CAP PO PRN ×2 (01:09→16:03)
--- NOTE | 2019-06-16 02:07 | FAST ---
SHIFT START DATE/TIME: 06/15/2019 19:00 (ELECTRICIAN APPRENTICE) SHIFT END DATE/TIME: 06/16/2019 07:00 (ELECTRICIAN APPRENTICE) NAME IVETT FITZPATRICK DATE OF : 1945 DATE OF ADMISSION: 06/13/2019 16:44 (ELECTRICIAN APPRENTICE) PHONE: AGE: 73 SSN# [id number] GENDER: Female ENCOUNTER PHYSICIAN: Dr. Ian Dc M.D. ADMISSION DIAGNOSIS: - Medically Complex Conditions 17 - Circulatory Disorders (17.4) Peripheral Artery Disease. EATING: Not assessed/no information CODE: - ORAL HYGIENE: Not assessed/no information CODE: - TOILETING HYGIENE: TOILETING HYGIENE - STEP 1: Does the patient complete the activity by him/herself with no assistance (physical, verbal/nonverbal cueing, setup/clean-up)? No. TOILETING HYGIENE - STEP 2: Does the patient need only setup/clean-up assistance from one helper? No. TOILETING HYGIENE - STEP 3: Does the patient need only verbal/nonverbal cueing or touching/steadying/contact guard assistance fro m one helper? No. TOILETING HYGIENE - STEP 4: Does the patient need physical assistance - for example lifting or trunk support from one helper - wi th the helper providing less than half of the effort? Yes. 1. [id number] ADMISSION PERFORMANCE: Partial/moderate assistance CODE: 03 BATHING: Not assessed/no information CODE: - DRESSING - UPPER BODY: Not assessed/no information CODE: - DRESSING - LOWER BODY: Not assessed/no information CODE: - PUTTING ON/TAKING OFF FOOTWEAR: Not assessed/no information CODE: - ROLL LEFT AND RIGHT: ROLL LEFT AND RIGHT - STEP 1: Does the patient complete the activity by him/herself with no assistance (physical, verbal/nonverbal cueing, setup/clean-up)? No. ROLL LEFT AND RIGHT - STEP 2: Does the patient need only setup/clean-up assistance from one helper? No. ROLL LEFT AND RIGHT - STEP 3: Does the patient need only verbal/nonverbal cueing or touching/steadying/contact guard assistance fro m one helper? Yes. 1. [id number] ADMISSION PERFORMANCE: Supervision or touching assistance CODE: 04 SIT TO LYING: SIT TO LYING - STEP 1: Does the patient complete the activity by him/herself with no assistance (physical, verbal/nonverbal cueing, setup/clean-up)? No. SIT TO LYING - STEP 2: Does the patient need only setup/clean-up assistance from one helper? No. SIT TO LYING - STEP 3: Does the patient need only verbal/nonverbal cueing or touching/steadying/contact guard assistance fro m one helper? Yes. 1. [id number] ADMISSION PERFORMANCE: Supervision or touching assistance CODE: 04 LYING TO SITTING: LYING TO SITTING ON SIDE OF BED - STEP 1: Does the patient complete the activity by him/herself with no assistance (physical, verbal/nonverbal cueing, setup/clean-up)? No. LYING TO SITTING ON SIDE OF BED - STEP 2: Does the patient need only setup/clean-up assistance from one helper? No. LYING TO SITTING ON SIDE OF BED - STEP 3: Does the patient need only verbal/nonverbal cueing or touching/steadying/contact guard assistance fro m one helper? Yes. 1. [id number] ADMISSION PERFORMANCE: Supervision or touching assistance CODE: 04 SIT TO STAND: SIT TO STAND - STEP 1: Does the patient complete the activity by him/herself with no assistance (physical, verbal/nonverbal cueing, setup/clean-up)? No. SIT TO STAND - STEP 2: Does the patient need only setup/clean-up assistance from one helper? No. SIT TO STAND - STEP 3: Does the patient need only verbal/nonverbal cueing or touching/steadying/contact guard assistance fro m one helper? Yes. 1. [id number] ADMISSION PERFORMANCE: Supervision or touching assistance CODE: 04 TRANSFERS: BED, CHAIR: CHAIR/[id number] TRANSFER - STEP 1: Does the patient complete the activity by him/herself with no assistance (physical, verbal/nonverbal cueing, setup/clean-up)? No. CHAIR/[id number] TRANSFER - STEP 2: Does the patient need only setup/clean-up assistance from one helper? No. CHAIR/[id number] TRANSFER - STEP 3: Does the patient need only verbal/nonverbal cueing or touching/steadying/contact guard assistance fro m one helper? Yes. 1. [id number] ADMISSION PERFORMANCE: Supervision or touching assistance CODE: 04 TRANSFER TOILET: TOILET TRANSFER - STEP 1: Does the patient complete the activity by him/herself with no assistance (physical, verbal/nonverbal cueing, setup/clean-up)? No. TOILET TRANSFER - STEP 2: Does the patient need only setup/clean-up assistance from one helper? No. TOILET TRANSFER - STEP 3: Does the patient need only verbal/nonverbal cueing or touching/steadying/contact guard assistance fro m one helper? Yes. 1. [id number] ADMISSION PERFORMANCE: Supervision or touching assistance CODE: 04 TRANSFERS: CAR: Not assessed/no information CODE: - WALK 10 FEET: Not assessed/no information CODE: - 1 STEP (CURB): Not assessed/no information CODE: - PICKING UP OBJECT: Not assessed/no information CODE: - DOES THE PATIENT USE A WHEELCHAIR/SCOOTER? CODE: EXPR WHEEL 50 FEET WITH TWO TURNS: Not assessed/no information CODE: - INDICATE THE TYPE OF WHEELCHAIR/SCOOTER USED: CODE: EXPR WHEEL 150 FEET: Not assessed/no information CODE: - INDICATE THE TYPE OF WHEELCHAIR/SCOOTER USED: CODE: EXPR BLADDER AND BOWEL: H350. BLADDER CONTINENCE (3-DAY ASSESSMENT PERIOD): Incontinent daily (at least once a day) CODE: 3 H400. BOWEL CONTINENCE (3-DAY ASSESSMENT PERIOD): Occasionally incontinent (one episode of bowel incontinence) CODE: 1
[2019-06-16] MEDS: PANTOPRAZOLE 40MG TABLET PO SCH (06:21)
[2019-06-16] MEDS: LEVOTHYROXINE SOD 0.025 MG TAB PO SCH (06:22)
[2019-06-16 06:55] LABS: Potassium 3.2 mmol/L (3.5-5.1)
[2019-06-16] MEDS: INSULIN -REGULAR HUMAN 50 UNIT/0.5 ML ML SQ SCH ×4 (07:30→20:10)
[2019-06-16] MEDS: PREGABALIN 150 MG CAP PO SCH ×2 (07:31→20:19)
[2019-06-16] MEDS: PRAMIPEXOLE 0.25 MG TAB PO SCH ×2 (07:32→20:09)
[2019-06-16] MEDS: GLIMEPIRIDE 2 MG TABLET PO SCH ×2 (07:32→16:44)
[2019-06-16] MEDS: FERROUS SULFATE 325 MG TAB PO SCH (07:32)
[2019-06-16] MEDS: GUAIFENESIN 600 MG SA TAB PO SCH ×2 (07:32→20:09)
[2019-06-16] MEDS: ASPIRIN 81 MG CHEWABLE TABLET PO SCH (07:32)
[2019-06-16] MEDS: FE SULF/FA/VIT B COMP & C TAB PO SCH (07:32)
[2019-06-16] MEDS: SPIRONOLACTONE 25 MG TABLET PO SCH ×2 (07:32→20:08)
[2019-06-16] MEDS: POTASSIUM CL SA 10 MEQ TAB PO SCH ×2 (07:33→20:08)
[2019-06-16] MEDS: METOPROLOL XL 25 MG TAB PO SCH ×2 (07:33→20:08)
[2019-06-16] MEDS: FUROSEMIDE 20 MG TABLET PO SCH ×2 (07:33→16:45)
[2019-06-16] MEDS: MIDODRINE HCL 5 MG TABLET PO SCH ×3 (07:33→20:07)
[2019-06-16] MEDS: NYSTATIN PWDR 100000 UNIT/GM TOP SCH ×3 (07:34→20:00)
[2019-06-16] MEDS: PROMOD 30 ML DOSE PO SCH ×2 (07:35→20:09)
[2019-06-16] MEDS: ACETIC ACID 0.25% IRRIG IRR SCH (09:18)
[2019-06-16] MEDS: HYDROCORTISONE 1 % CREAM 30GM TOP PRN (09:32)
--- NOTE | 2019-06-16 09:32 | FAST ---
ENCOUNTER DATE AND TIME: 06/14/2019 08:00 (SECTION CHIEF) NAME IVETT FITZPATRICK DATE OF : 1945 DATE OF ADMISSION: 06/13/2019 16:44 (SECTION CHIEF) PHONE: AGE: 73 N# [id number] GENDER: Female ENCOUNTER PHYSICIAN: Dr. Ian Dc M.D. ADMISSION DIAGNOSIS: - Medically Complex Conditions 17 - Circulatory Disorders (17.4) Peripheral Artery Disease. EATING: Not assessed/no information CODE: - ORAL HYGIENE: Not assessed/no information CODE: - TOILETING HYGIENE: Not assessed/no information CODE: - BATHING: SHOWER/BATHE SELF - STEP 1: Does the patient complete the activity by him/herself with no assistance (physical, verbal/nonverbal cueing, setup/clean-up)? No. SHOWER/BATHE SELF - STEP 2: Does the patient need only setup/clean-up assistance from one helper? No. SHOWER/BATHE SELF - STEP 3: Does the patient need only verbal/nonverbal cueing or touching/steadying/contact guard assistance fro m one helper? No. SHOWER/BATHE SELF - STEP 4: Does the patient need physical assistance - for example lifting or trunk support from one helper - wi th the helper providing less than half of the effort? Yes. 1. [id number] ADMISSION PERFORMANCE: Partial/moderate assistance CODE: 03 DRESSING - UPPER BODY: DRESSING - UPPER BODY - STEP 1: Does the patient complete the activity by him/herself with no assistance (physical, verbal/nonverbal cueing, setup/clean-up)? No. DRESSING - UPPER BODY - STEP 2: Does the patient need only setup/clean-up assistance from one helper? No. DRESSING - UPPER BODY - STEP 3: Does the patient need only verbal/nonverbal cueing or touching/steadying/contact guard assistance fro m one helper? No. DRESSING - UPPER BODY - STEP 4: Does the patient need physical assistance - for example lifting or trunk support from one helper - wi th the helper providing less than half of the effort? Yes. 1. [id number] ADMISSION PERFORMANCE: Partial/moderate assistance CODE: 03 DRESSING - LOWER BODY: DRESSING - LOWER BODY - STEP 1: Does the patient complete the activity by him/herself with no assistance (physical, verbal/nonverbal cueing, setup/clean-up)? No. DRESSING - LOWER BODY - STEP 2: Does the patient need only setup/clean-up assistance from one helper? No. DRESSING - LOWER BODY - STEP 3: Does the patient need only verbal/nonverbal cueing or touching/steadying/contact guard assistance fro m one helper? No. DRESSING - LOWER BODY - STEP 4: Does the patient need physical assistance - for example lifting or trunk support from one helper - wi th the helper providing less than half of the effort? No. DRESSING - LOWER BODY - STEP 5: Does the patient need physical assistance - for example lifting or trunk support from one helper - wi th the helper providing more than half of the effort? Yes. 1. [id number] ADMISSION PERFORMANCE: Substantial/maximal assistance CODE: 02 PUTTING ON/TAKING OFF FOOTWEAR: FOOTWEAR - STEP 1: Does the patient complete the activity by him/herself with no assistance (physical, verbal/nonverbal cueing, setup/clean-up)? No. FOOTWEAR - STEP 2: Does the patient need only setup/clean-up assistance from one helper? No. FOOTWEAR - STEP 3: Does the patient need only verbal/nonverbal cueing or touching/steadying/contact guard assistance fro m one helper? No. FOOTWEAR - STEP 4: Does the patient need physical assistance - for example lifting or trunk support from one helper - wi th the helper providing less than half of the effort? No. FOOTWEAR - STEP 5: Does the patient need physical assistance - for example lifting or trunk support from one helper - wi th the helper providing more than half of the effort? No. FOOTWEAR - STEP 6: Does the helper provide all of the effort? OR Is the assistance of two or more helpers required to co mplete the activity? Yes. 1. [id number] ADMISSION PERFORMANCE: Dependent CODE: 01 DOES THE PATIENT USE A WHEELCHAIR/SCOOTER? CODE: EXPR INDICATE THE TYPE OF WHEELCHAIR/SCOOTER USED: CODE: EXPR INDICATE THE TYPE OF WHEELCHAIR/SCOOTER USED: CODE: EXPR BLADDER AND BOWEL: CODE: EXPR CODE: EXPR SIGNATURE PANEL: The following modified sections: 1. [id number] Admission Performance, 1. [id number] Admission Performance, 1. [id number] Admission Performance, 1. [id number] Admission Performance were [electronically] signed by Nagi Alejandro OT on Sat Jun 16 2019 09:31:17 GMT-0600 (Central Standard Time)
[2019-06-16] MEDS: guaiFENesin 100 MG/5 ML UCUP PO PRN ×2 (13:18→23:52)
[2019-06-16] MEDS: RIVAROXABAN 20 MG TABLET PO SCH (16:45)
--- NOTE | 2019-06-16 17:11 | RAD REPORT ---
EXAM DESCRIPTION: RAD - Chest Single View - 06/16/2019 5:01 pm CLINICAL HISTORY: R/O Pneumonia Chest pain. COMPARISON: <Comparisons> FINDINGS: Portable technique limits examination quality. Mild interstitial pulmonary edema seen. The heart is moderately enlarged in size. Hardware is present in the cervical spine. IMPRESSION: Mild CHF suspected.
[2019-06-16] MEDS: MONTELUKAST 10 MG TAB PO SCH (20:08)
[2019-06-16] MEDS: ATORVASTATIN 10 MG TAB PO SCH (20:09)
[2019-06-16] MEDS: TRAMADOL HCL 50 MG TAB PO PRN (20:39)
[2019-06-17] MEDS: LEVOTHYROXINE SOD 0.025 MG TAB PO SCH (06:17)
[2019-06-17] MEDS: PANTOPRAZOLE 40MG TABLET PO SCH (06:17)
[2019-06-17] MEDS: INSULIN -REGULAR HUMAN 50 UNIT/0.5 ML ML SQ SCH ×4 (07:30→20:05)
[2019-06-17] MEDS: CLINDAMYCIN INJ 150 MG in NA CHLORIDE 0.9% 50 ML IV SCH ×4 (07:42→16:52)
[2019-06-17] MEDS: PREGABALIN 150 MG CAP PO SCH ×2 (07:43→20:06)
[2019-06-17] MEDS: FERROUS SULFATE 325 MG TAB PO SCH (07:44)
[2019-06-17] MEDS: ASPIRIN 81 MG CHEWABLE TABLET PO SCH (07:44)
[2019-06-17] MEDS: FE SULF/FA/VIT B COMP & C TAB PO SCH (07:44)
[2019-06-17] MEDS: GUAIFENESIN 600 MG SA TAB PO SCH ×2 (07:44→20:06)
[2019-06-17] MEDS: POTASSIUM CL SA 10 MEQ TAB PO SCH ×2 (07:44→20:05)
[2019-06-17] MEDS: MIDODRINE HCL 5 MG TABLET PO SCH ×3 (07:44→20:06)
[2019-06-17] MEDS: SPIRONOLACTONE 25 MG TABLET PO SCH ×2 (07:45→20:06)
[2019-06-17] MEDS: GLIMEPIRIDE 2 MG TABLET PO SCH ×2 (07:45→16:51)
[2019-06-17] MEDS: PRAMIPEXOLE 0.25 MG TAB PO SCH ×2 (07:45→20:06)
[2019-06-17] MEDS: FUROSEMIDE 20 MG TABLET PO SCH ×2 (07:46→16:51)
[2019-06-17] MEDS: METOPROLOL XL 25 MG TAB PO SCH ×2 (07:46→20:07)
[2019-06-17] MEDS: NYSTATIN PWDR 100000 UNIT/GM TOP SCH ×2 (07:47→20:00)
[2019-06-17] MEDS: PROMOD 30 ML DOSE PO SCH ×2 (07:47→20:00)
--- NOTE | 2019-06-17 08:11 | RAD REPORT ---
EXAM DESCRIPTION: RAD - Chest Single View - 06/17/2019 6:54 am CLINICAL HISTORY: Chest pain, pneumonia COMPARISON: June 16 TECHNIQUE: AP portable chest image was obtained 0649 hours . FINDINGS: Lung volumes are low compared to prior imaging. This accentuates lung base markings. Left costophrenic angle blunting is present. Hazy opacification over each lower lung field is nonspecific and could be atelectasis or infiltrate. Substantial change from comparison is not seen. Heart and vas culature are normal. No measurable pleural effusion and no pneumothorax. No acute bony abnormality se en. No acute aortic findings suspected. IMPRESSION: Limited shallow inspiration exam is not substantially different. Hazy opacification over each lung base is probably atelectasis. Mild lung base infiltrate is not excl uded.
[2019-06-17] MEDS: BENZONATATE 100 MG CAP PO PRN (09:43)
[2019-06-17] MEDS: ACETIC ACID 0.25% IRRIG IRR SCH (10:00)
[2019-06-17] MEDS: HYDROCORTISONE 1 % CREAM 30GM TOP PRN (10:09)
[2019-06-17] MEDS: guaiFENesin 100 MG/5 ML UCUP PO PRN ×2 (13:24→23:55)
[2019-06-17] MEDS: RIVAROXABAN 20 MG TABLET PO SCH (16:51)
[2019-06-17] MEDS: ATORVASTATIN 10 MG TAB PO SCH (20:06)
[2019-06-17] MEDS: MONTELUKAST 10 MG TAB PO SCH (20:06)
[2019-06-17] MEDS: TRAMADOL HCL 50 MG TAB PO PRN (20:07)
[2019-06-18] MEDS: CLINDAMYCIN INJ 150 MG in NA CHLORIDE 0.9% 50 ML IV SCH ×3 (00:16→16:23)
[2019-06-18] MEDS: BENZONATATE 100 MG CAP PO PRN ×2 (04:44→23:35)
[2019-06-18] MEDS: PANTOPRAZOLE 40MG TABLET PO SCH (06:45)
[2019-06-18] MEDS: LEVOTHYROXINE SOD 0.025 MG TAB PO SCH (06:45)
[2019-06-18] MEDS: INSULIN -REGULAR HUMAN 50 UNIT/0.5 ML ML SQ SCH ×4 (07:30→21:41)
[2019-06-18] MEDS: NYSTATIN PWDR 100000 UNIT/GM TOP SCH ×2 (08:00→19:56)
[2019-06-18] MEDS: ACETIC ACID 0.25% IRRIG IRR SCH (08:00)
[2019-06-18] MEDS: PROMOD 30 ML DOSE PO SCH ×2 (08:00→20:06)
[2019-06-18] MEDS: POTASSIUM CL SA 10 MEQ TAB PO SCH ×2 (08:36→19:53)
[2019-06-18] MEDS: FE SULF/FA/VIT B COMP & C TAB PO SCH (08:36)
[2019-06-18] MEDS: FERROUS SULFATE 325 MG TAB PO SCH (08:36)
[2019-06-18] MEDS: GUAIFENESIN 600 MG SA TAB PO SCH ×2 (08:37→19:53)
[2019-06-18] MEDS: PREGABALIN 150 MG CAP PO SCH ×2 (08:37→19:53)
[2019-06-18] MEDS: ASPIRIN 81 MG CHEWABLE TABLET PO SCH (08:38)
[2019-06-18] MEDS: PRAMIPEXOLE 0.25 MG TAB PO SCH ×2 (08:38→21:40)
[2019-06-18] MEDS: GLIMEPIRIDE 2 MG TABLET PO SCH ×2 (08:38→16:11)
[2019-06-18] MEDS: SPIRONOLACTONE 25 MG TABLET PO SCH ×2 (08:38→19:55)
[2019-06-18] MEDS: METOPROLOL XL 25 MG TAB PO SCH ×2 (08:38→19:53)
[2019-06-18] MEDS: MIDODRINE HCL 5 MG TABLET PO SCH ×3 (08:38→21:41)
[2019-06-18] MEDS: FUROSEMIDE 20 MG TABLET PO SCH ×2 (08:39→16:11)
--- NOTE | 2019-06-18 13:00 | FAST ---
ENCOUNTER DATE AND TIME: 06/18/2019 08:00 (EXPEDITER) NAME IVETT FITZPATRICK DATE OF : 1945 DATE OF ADMISSION: 06/13/2019 16:44 (EXPEDITER) PHONE: AGE: 73 N# [id number] GENDER: Female ENCOUNTER PHYSICIAN: Dr. Ian Dc M.D. ADMISSION DIAGNOSIS: - Medically Complex Conditions 17 - Circulatory Disorders (17.4) Peripheral Artery Disease. EATING: Not assessed/no information CODE: - ORAL HYGIENE: ORAL HYGIENE - STEP 1: Does the patient complete the activity by him/herself with no assistance (physical, verbal/nonverbal cueing, setup/clean-up)? Yes. 1. [id number] ADMISSION PERFORMANCE: Independent CODE: 06 TOILETING HYGIENE: Not assessed/no information CODE: - BATHING: SHOWER/BATHE SELF - STEP 1: Does the patient complete the activity by him/herself with no assistance (physical, verbal/nonverbal cueing, setup/clean-up)? No. SHOWER/BATHE SELF - STEP 2: Does the patient need only setup/clean-up assistance from one helper? No. SHOWER/BATHE SELF - STEP 3: Does the patient need only verbal/nonverbal cueing or touching/steadying/contact guard assistance fro m one helper? Yes. 1. [id number] ADMISSION PERFORMANCE: Supervision or touching assistance CODE: 04 DRESSING - UPPER BODY: DRESSING - UPPER BODY - STEP 1: Does the patient complete the activity by him/herself with no assistance (physical, verbal/nonverbal cueing, setup/clean-up)? No. DRESSING - UPPER BODY - STEP 2: Does the patient need only setup/clean-up assistance from one helper? No. DRESSING - UPPER BODY - STEP 3: Does the patient need only verbal/nonverbal cueing or touching/steadying/contact guard assistance fro m one helper? Yes. 1. [id number] ADMISSION PERFORMANCE: Supervision or touching assistance CODE: 04 DRESSING - LOWER BODY: DRESSING - LOWER BODY - STEP 1: Does the patient complete the activity by him/herself with no assistance (physical, verbal/nonverbal cueing, setup/clean-up)? No. DRESSING - LOWER BODY - STEP 2: Does the patient need only setup/clean-up assistance from one helper? No. DRESSING - LOWER BODY - STEP 3: Does the patient need only verbal/nonverbal cueing or touching/steadying/contact guard assistance fro m one helper? Yes. 1. [id number] ADMISSION PERFORMANCE: Supervision or touching assistance CODE: 04 PUTTING ON/TAKING OFF FOOTWEAR: FOOTWEAR - STEP 1: Does the patient complete the activity by him/herself with no assistance (physical, verbal/nonverbal cueing, setup/clean-up)? No. FOOTWEAR - STEP 2: Does the patient need only setup/clean-up assistance from one helper? No. FOOTWEAR - STEP 3: Does the patient need only verbal/nonverbal cueing or touching/steadying/contact guard assistance fro m one helper? No. FOOTWEAR - STEP 4: Does the patient need physical assistance - for example lifting or trunk support from one helper - wi th the helper providing less than half of the effort? No. FOOTWEAR - STEP 5: Does the patient need physical assistance - for example lifting or trunk support from one helper - wi th the helper providing more than half of the effort? Yes. 1. [id number] ADMISSION PERFORMANCE: Substantial/maximal assistance CODE: 02 DOES THE PATIENT USE A WHEELCHAIR/SCOOTER? CODE: EXPR INDICATE THE TYPE OF WHEELCHAIR/SCOOTER USED: CODE: EXPR INDICATE THE TYPE OF WHEELCHAIR/SCOOTER USED: CODE: EXPR BLADDER AND BOWEL: CODE: EXPR CODE: EXPR SIGNATURE PANEL: The following modified sections: 1. [id number] Admission Performance, 1. [id number] Admission Performance, 1. [id number] Admission Performance, 1. [id number] Admission Performance, 1. [id number] Admission Performance, 1. [id number] Admission Performance were [electronically] signed by CEFERINO Sumner on TueJun 18 2019 12:58:58 GMT-0600 (Central Standard Time)
[2019-06-18] MEDS: RIVAROXABAN 20 MG TABLET PO SCH (16:11)
--- NOTE | 2019-06-18 17:45 | R.PN ---
ENCOUNTER DATE AND TIME: 06/18/2019 17:35 (MEAT CUTTER APPRENTICE) NAME IVETT FITZPATRICK DATE OF : 1945 DATE OF ADMISSION: 06/13/2019 16:44 (MEAT CUTTER APPRENTICE) Peripheral Artery DiseaseCHIEF COMPLAINT: Debility and peripheral arterial disease SUBJECTIVE: Pt denied any depression. Pt denied any Shortness of Breath. She has a chronic cough for 1 year without a diagnosis. Chest x- rays x 2 identified mild atelectasi s versus mild lung base infiltrate. She is on nebulizers and uses incentive spirometry plus cough sup pressants with moderate improvement. She ambulated 500' with independence. Up and down 5 steps with bilateral handrails with partial gabriel tance. VITAL SIGNS Temperature: 97.0 F SBP/DBP: 123/58 Pulse: 96 Resp: 16 MEDICATION ALLERGIES: CIPROFLOXACIN Erythromycin Losartan MACROLIDE Penicillin PENTOXIFYLLINE ENVIRONMENTAL ALLERGIES: None Known - Substance Allergies None Known - Other Allergies None Known NURSING: - Shower allowing shower - Lab Results blood Sugar Check ACHS ACTIVITIES OOB only with supervision THERAPIES: - Dietary and Nutrition Adequate Nutrition. Nutritional Education. Nutritional Supplements. PHYSICAL EXAM - Gen Alert and awake Lying in bed No apparent distress Oriented to: person, time, and place - Skin No skin breakdown. Normacephalic - Eyes No abnormalities - ENMT No abnormalities - Neck No abnormalities - CVS RRR - Chest No abnormalities - Resp Clear to auscultation - Abd Soft - GI Non distended Deferred - No abnormalities - Ext Mild bilateral lower extremity edema. - MSK 4+/5 weakness in both lower extremities. - Neuro No focal deficits - Psych No abnormalities ASSESSMENT: Pt. is a 73 yo Right-handed white female.On 06/09/2019 she was admitted to [facility] with diagnosis Peripheral Artery Disease.Her impairment category is Medically Complex Conditio ns 17 - Circulatory Disorders (17.4).Pre-morbidly, Pt. was independent/mod-I in Locomotion, Safety A wareness, Balance, Social Cognition, Transfers Control, Sphincter Control, Self-Care, Communication, and Endurance; and she had good Locomotion, Safety Awareness, Social Cognition, Balance, Transfers Co ntrol, Sphincter Control, Self-Care, and Communication.Currently, she has deficits of Locomotion, Saf ety Awareness, Balance, Social Cognition, Transfers Control, Sphincter Control, Self-Care, Communicat ion, and Endurance.Pt. is now referred to [facility] for acute in-patient reha bilitation in order to maximize patient's functional independence in activities of daily living, stre ngth, ROM, and mobility.- Rehab Goal Patient has realistic goal of being discharged at assistance level 6-Pop to reside at Home with Fam poppy/Relatives. MDM/PLAN: - Physical Therapy Gait dysfunction - to improve, our physical therapists will perform initial evaluation of pt's statu s upon admission and devise an individualized program for Gait Training, and Wheel Chair mobility Inability to transfer - to improve, our physical therapists will perform initial evaluation of pt's status upon admission and devise an individualized program for Bed mobility Need for home safety evaluation - to improve, our physical therapists will perform initial evaluatio n of pt's status upon admission and devise an individualized program for Home Evaluation Need in caregiver upon discharge - to improve, our physical therapists will perform initial evaluati on of pt's status upon admission and devise an individualized program for Caregiver Training Edema - to improve, our physical therapists will perform initial evaluation of pt's status upon admis dioni and devise an individualized program for Elevation Training, and Lymphedema Therapy New precaution - to improve, our physical therapists will perform initial evaluation of pt's status upon admission and devise an individualized program for Patient precaution education Poor balance - to improve, our physical therapists will perform initial evaluation of pt's status up on admission and devise an individualized program for Balance Training Poor endurance - to improve, our physical therapists will perform initial evaluation of pt's status upon admission and devise an individualized program for Endurance Training Weakness - to improve, our physical therapists will perform initial evaluation of pt's status upon a dmission and devise an individualized program for Aquatic Therapy, Neuromuscular Reeducation, and Str engthening Achieving independence - to improve, our physical therapists will perform initial evaluation of pt's status upon admission and devise an individualized program for Community Reintegration Activities - Occupational Therapy ADL deficits - to improve, our occupation therapists will perform initial evaluation of pt's status upon admission and devise an individualized program for Bathing, Bed mobility, Community Reintegratio n, Cooking, Dressing, Eating, Fine Motor Skills, Grooming, Homemaking, Kitchen Mobility, Laundry, Pat ient Education, Safety Awareness, Splinting - Positioning, Transfers(Toilet, Tub, Shower), and Wheel Chair Management Cognitive deficits - to improve, our occupation therapists will perform initial evaluation of pt's s tatus upon admission and devise an individualized program for Cognition - orientation Need for physician locums urgent care - to improve, our occupation therapists will perform initial evaluation of pt's status upon admission and devise an individualized program for Caregiver Training Weakness - to improve, our occupation therapists will perform initial evaluation of pt's status upon admission and devise an individualized program for Aquatic Therapy, Balance, Endurance, UE ROM, and UE strengthening - Other See attached MAR (Medication Administration Record) - Diet Type Continue Regular - Diet - Liquid Texture Continue Regular - Tube Feed Continue N/A - Lab Results blood Sugar Check ACHS - Diet - Solid Texture Continue Regular - Shower allowing shower FUNCTIONAL STATUS: UPDATED AT WEEKLY TEAM CONFERENCE - Bladder Same accident frequency: 7-Ind - No accidents in the past 7 days - Bowel Same accident frequency: 7-Ind - No accidents in the past 7 days - Walking Same score based on distance walked: 0(N/A) Same score based on distance walked: 1(<=50ft) - Wheelchair Same score based on distance traveled: 0(N/A) FUNCTIONAL STATUS: - Self-Care A. Eating Ind B. Grooming Ind C. Bathing sup D. Dressing - Upper sup E. Dressing - Lower sup F. Toileting sup - Sphincter Control G. Bladder control sup H. Bowel control sup - Transfers Control I. Bed/Chair/Wheelchair Pop J. Toilet sup K. Tub/Shower sup - Locomotion L. Walk/Wheelchair (B) Pop M. Stairs Pop - Communication N. Comprehension (B) Pop O. Expression (B) Pop - Social Cognition P. Social Interaction Ind Q. Problem Solving Ind R. Memory Pop - Endurance Good - Balance Good - Safety Awareness Good QI SCORES: - Self-Care A. Eating 05-Setup or clean-up assistance B. Oral hygiene 05-Setup or clean-up assistance C. Toileting hygiene 02-Substantial/maximal assistance E. Shower/bathe self 03-Partial/moderate assistance F. Upper body dressing 03-Partial/moderate assistance G. Lower body dressing 02-Substantial/maximal assistance H. Putting on/taking off footwear 02-Substantial/maximal assistance - Mobility A. Roll left and right 03-Partial/moderate assistance B. Sit to lying 02-Substantial/maximal assistance C. Lying to sitting on side of bed 02-Substantial/maximal assistance D. Sit to stand 02-Substantial/maximal assistance E. Chair/tgl-ss-dtfbu transfer 02-Substantial/maximal assistance F. Toilet transfer 02-Substantial/maximal assistance G. Car transfer 88-Not attempted due to medical condition or safety concerns I. Walk 10 feet 03-Partial/moderate assistance J. Walk 50 feet with two turns 88-Not attempted due to medical condition or safety concerns K. Walk 150 feet 88-Not attempted due to medical condition or safety concerns L. Walking 10 feet on uneven surfaces 88-Not attempted due to medical condition or safety concerns M. 1 step (curb) 88-Not attempted due to medical condition or safety concerns N. 4 steps 88-Not attempted due to medical condition or safety concerns O. 12 steps 88-Not attempted due to medical condition or safety concerns P. Picking up object 88-Not attempted due to medical condition or safety concerns R. Wheel 50 feet with two turns 88-Not attempted due to medical condition or safety concerns S. Wheel 150 feet 88-Not attempted due to medical condition or safety concerns - Bladder and Bowel Bladder continence 0-Always continent Bowel continence 0-Always continent - Endurance Poor - Balance Fair - Safety Awareness Fair CURRENT FUNC. DEFICITS: Self-Care, Mobility, Endurance, Balance, and Safety Awareness SIGNATURE PANEL: (MEAT CUTTER APPRENTICE)
[2019-06-18] MEDS: DOCUSATE NA/SENNA CONC 1 TAB PO PRN (19:53)
[2019-06-18] MEDS: HYDROCORTISONE 1 % CREAM 30GM TOP PRN (19:59)
[2019-06-18] MEDS: ATORVASTATIN 10 MG TAB PO SCH (21:40)
[2019-06-18] MEDS: MONTELUKAST 10 MG TAB PO SCH (21:41)
[2019-06-18] MEDS ORDERED: DIPHENHYDRAMINE 25 MG TAB/CAP PO PRN (23:17)
[2019-06-19] MEDS: CLINDAMYCIN INJ 150 MG in NA CHLORIDE 0.9% 50 ML IV SCH ×2 (00:39→09:19)
[2019-06-19] MEDS: PANTOPRAZOLE 40MG TABLET PO SCH (07:03)
[2019-06-19] MEDS: LEVOTHYROXINE SOD 0.025 MG TAB PO SCH (07:03)
[2019-06-19] MEDS: INSULIN -REGULAR HUMAN 50 UNIT/0.5 ML ML SQ SCH ×4 (07:30→21:10)
[2019-06-19] MEDS: ACETIC ACID 0.25% IRRIG IRR SCH (08:00)
[2019-06-19] MEDS: NYSTATIN PWDR 100000 UNIT/GM TOP SCH ×2 (08:00→19:35)
[2019-06-19] MEDS: PREGABALIN 150 MG CAP PO SCH ×2 (08:27→19:38)
[2019-06-19] MEDS: GLIMEPIRIDE 2 MG TABLET PO SCH ×2 (08:27→16:57)
[2019-06-19] MEDS: POTASSIUM CL SA 10 MEQ TAB PO SCH ×2 (08:27→19:37)
[2019-06-19] MEDS: GUAIFENESIN 600 MG SA TAB PO SCH ×2 (08:28→19:37)
[2019-06-19] MEDS: PRAMIPEXOLE 0.25 MG TAB PO SCH ×2 (08:28→21:12)
[2019-06-19] MEDS: FE SULF/FA/VIT B COMP & C TAB PO SCH (08:28)
[2019-06-19] MEDS: METOPROLOL XL 25 MG TAB PO SCH ×2 (08:29→19:38)
[2019-06-19] MEDS: FERROUS SULFATE 325 MG TAB PO SCH (08:29)
[2019-06-19] MEDS: FUROSEMIDE 20 MG TABLET PO SCH ×2 (08:29→16:56)
[2019-06-19] MEDS: ASPIRIN 81 MG CHEWABLE TABLET PO SCH (08:29)
[2019-06-19] MEDS: MIDODRINE HCL 5 MG TABLET PO SCH ×3 (08:29→21:12)
[2019-06-19] MEDS: PROMOD 30 ML DOSE PO SCH ×2 (08:30→19:40)
[2019-06-19] MEDS: SPIRONOLACTONE 25 MG TABLET PO SCH ×2 (11:20→19:38)
[2019-06-19] MEDS ORDERED: METOCLOPRAMIDE 10MG/10ML UCUP PO PRN (14:19)
[2019-06-19] MEDS ORDERED: DIPHENHYDRAMINE 25 MG TAB/CAP PO PRN (14:23)
[2019-06-19] MEDS: RIVAROXABAN 20 MG TABLET PO SCH (16:57)
[2019-06-19] MEDS: MONTELUKAST 10 MG TAB PO SCH (19:40)
[2019-06-19] MEDS: ALBUTEROL 2.5 MG/3 ML NEB SOL NEB PRN (20:50)
[2019-06-19] MEDS: IPRATROPIUM BROM 0.5MG/2.5ML NEB SCH (20:50)
[2019-06-19] MEDS: CLINDAMYCIN HCL 150 MG CAP PO SCH (21:12)
[2019-06-19] MEDS: ATORVASTATIN 10 MG TAB PO SCH (21:12)
[2019-06-19] MEDS: DIPHENHYDRAMINE 12.5MG/5ML LIQ PO PRN (21:53)
[2019-06-19] MEDS: BENZONATATE 100 MG CAP PO PRN (23:58)
[2019-06-20] MEDS: IPRATROPIUM BROM 0.5MG/2.5ML NEB SCH ×4 (01:55→20:00)
[2019-06-20] MEDS: PANTOPRAZOLE 40MG TABLET PO SCH (06:25)
[2019-06-20] MEDS: LEVOTHYROXINE SOD 0.025 MG TAB PO SCH (06:26)
[2019-06-20] MEDS: GUAIFENESIN 600 MG SA TAB PO SCH ×2 (06:59→21:07)
[2019-06-20] MEDS: INSULIN -REGULAR HUMAN 50 UNIT/0.5 ML ML SQ SCH ×4 (07:30→21:06)
[2019-06-20] MEDS: MIDODRINE HCL 5 MG TABLET PO SCH ×3 (07:53→21:02)
[2019-06-20] MEDS: PREGABALIN 150 MG CAP PO SCH ×2 (07:53→21:01)
[2019-06-20] MEDS: ASPIRIN 81 MG CHEWABLE TABLET PO SCH (07:53)
[2019-06-20] MEDS: FE SULF/FA/VIT B COMP & C TAB PO SCH (07:53)
[2019-06-20] MEDS: FERROUS SULFATE 325 MG TAB PO SCH (07:53)
[2019-06-20] MEDS: PRAMIPEXOLE 0.25 MG TAB PO SCH ×2 (07:53→21:02)
[2019-06-20] MEDS: GLIMEPIRIDE 2 MG TABLET PO SCH ×2 (07:53→16:36)
[2019-06-20] MEDS: FUROSEMIDE 20 MG TABLET PO SCH ×2 (07:54→16:36)
[2019-06-20] MEDS: POTASSIUM CL SA 10 MEQ TAB PO SCH ×2 (07:54→21:01)
[2019-06-20] MEDS: METOPROLOL XL 25 MG TAB PO SCH ×2 (07:54→21:02)
[2019-06-20] MEDS: SPIRONOLACTONE 25 MG TABLET PO SCH ×2 (07:55→21:02)
[2019-06-20] MEDS: ACETIC ACID 0.25% IRRIG IRR SCH (07:56)
[2019-06-20] MEDS: PROMOD 30 ML DOSE PO SCH ×2 (07:56→21:10)
[2019-06-20] MEDS: NYSTATIN PWDR 100000 UNIT/GM TOP SCH ×2 (07:56→20:00)
[2019-06-20] MEDS: CLINDAMYCIN HCL 150 MG CAP PO SCH ×3 (08:34→21:02)
[2019-06-20] MEDS: predniSONE 10 MG TAB PO SCH (14:44)
[2019-06-20] MEDS: guaiFENesin 100 MG/5 ML UCUP PO PRN ×2 (14:44→23:01)
[2019-06-20] MEDS: SMZ./TMP. 800/160 MG TABLET PO SCH ×2 (15:00→21:03)
--- NOTE | 2019-06-20 16:19 | FAST ---
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 Ian Dc M.D. ADMISSION DIAGNOSIS: - Medically Complex Conditions 17 - Circulatory Disorders (17.4) Peripheral Artery Disease. EATING: Not assessed/no information CODE: - ORAL HYGIENE: ORAL HYGIENE - STEP 1: Does the patient complete the activity by him/herself with no assistance (physical, verbal/nonverbal cueing, setup/clean-up)? Yes. 1. [id number] ADMISSION PERFORMANCE: Independent CODE: 06 TOILETING HYGIENE: Not assessed/no information CODE: - BATHING: SHOWER/BATHE SELF - STEP 1: Does the patient complete the activity by him/herself with no assistance (physical, verbal/nonverbal cueing, setup/clean-up)? No. SHOWER/BATHE SELF - STEP 2: Does the patient need only setup/clean-up assistance from one helper? No. SHOWER/BATHE SELF - STEP 3: Does the patient need only verbal/nonverbal cueing or touching/steadying/contact guard assistance fro m one helper? Yes. 1. [id number] ADMISSION PERFORMANCE: Supervision or touching assistance CODE: 04 DRESSING - UPPER BODY: DRESSING - UPPER BODY - STEP 1: Does the patient complete the activity by him/herself with no assistance (physical, verbal/nonverbal cueing, setup/clean-up)? Yes. 1. [id number] ADMISSION PERFORMANCE: Independent CODE: 06 DRESSING - LOWER BODY: DRESSING - LOWER BODY - STEP 1: Does the patient complete the activity by him/herself with no assistance (physical, verbal/nonverbal cueing, setup/clean-up)? No. DRESSING - LOWER BODY - STEP 2: Does the patient need only setup/clean-up assistance from one helper? No. DRESSING - LOWER BODY - STEP 3: Does the patient need only verbal/nonverbal cueing or touching/steadying/contact guard assistance fro m one helper? Yes. 1. [id number] ADMISSION PERFORMANCE: Supervision or touching assistance CODE: 04 PUTTING ON/TAKING OFF FOOTWEAR: FOOTWEAR - STEP 1: Does the patient complete the activity by him/herself with no assistance (physical, verbal/nonverbal cueing, setup/clean-up)? No. FOOTWEAR - STEP 2: Does the patient need only setup/clean-up assistance from one helper? No. FOOTWEAR - STEP 3: Does the patient need only verbal/nonverbal cueing or touching/steadying/contact guard assistance fro m one helper? No. FOOTWEAR - STEP 4: Does the patient need physical assistance - for example lifting or trunk support from one helper - wi th the helper providing less than half of the effort? Yes. 1. [id number] ADMISSION PERFORMANCE: Partial/moderate assistance CODE: 03 DOES THE PATIENT USE A WHEELCHAIR/SCOOTER? CODE: EXPR INDICATE THE TYPE OF WHEELCHAIR/SCOOTER USED: CODE: EXPR INDICATE THE TYPE OF WHEELCHAIR/SCOOTER USED: CODE: EXPR BLADDER AND BOWEL: CODE: EXPR CODE: EXPR SIGNATURE PANEL: The following modified sections: 1. [id number] Admission Performance, 1. [id number] Admission Performance, 1. [id number] Admission Performance, 1. [id number] Admission Performance, 1. [id number] Admission Performance were [electronically] signed by CEFERINO Sumner on TueJun 20 2019 16:18:57 GMT-0600 (Central Standard Time)
--- NOTE | 2019-06-20 16:28 | R.PN ---
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 Pt denied any Shortness of Breath. She has a chronic cough for 1 year without a diagnosis. Chest x- rays x 2 identified mild atelectasi s versus mild lung base infiltrate. She is on nebulizers and uses incentive spirometry plus cough sup pressants with moderate improvement. She ambulated 500' with independence. Up and down 5 steps with bilateral handrails with partial gabriel tance. Glucose 149 to 234. [id number] show mild lung infiltrate. She is on nebulizers, incentive spiromet ry, tesselon perle and robitussin. Self propelled wheelchair 250' with maximum assistance. VITAL SIGNS Temperature: 98.0 F SBP/DBP: 134/61 Pulse: 70 Resp: 16 MEDICATION ALLERGIES: CIPROFLOXACIN Erythromycin Losartan MACROLIDE Penicillin PENTOXIFYLLINE ENVIRONMENTAL ALLERGIES: None Known - Substance Allergies None Known - Other Allergies None Known NURSING: - Shower allowing shower - Lab Results blood Sugar Check ACHS ACTIVITIES OOB only with supervision THERAPIES: - Dietary and Nutrition Adequate Nutrition. Nutritional Education. Nutritional Supplements. PHYSICAL EXAM - Gen Alert and awake Lying in bed No apparent distress Oriented to: person, time, and place - Skin No skin breakdown. Normacephalic - Eyes No abnormalities - ENMT No abnormalities - Neck No abnormalities - CVS RRR - Chest No abnormalities - Resp Clear to auscultation - Abd Soft - GI Non distended Deferred - No abnormalities - Ext Mild bilateral lower extremity edema. - MSK 4+/5 weakness in both lower extremities. - Neuro No focal deficits - Psych No abnormalities ASSESSMENT: Pt. is a 73 yo Right-handed white female.On 06/09/2019 she was admitted to [facility] with diagnosis Peripheral Artery Disease.Her impairment category is Medically Complex Conditio ns 17 - Circulatory Disorders (17.4).Pre-morbidly, Pt. was independent/mod-I in Locomotion, Safety A wareness, Balance, Social Cognition, Transfers Control, Sphincter Control, Self-Care, Communication, and Endurance; and she had good Locomotion, Safety Awareness, Social Cognition, Balance, Transfers Co ntrol, Sphincter Control, Self-Care, and Communication.Currently, she has deficits of Locomotion, Saf ety Awareness, Balance, Social Cognition, Transfers Control, Sphincter Control, Self-Care, Communicat ion, and Endurance.Pt. is now referred to [facility] for acute in-patient reha bilitation in order to maximize patient's functional independence in activities of daily living, stre ngth, ROM, and mobility.- Rehab Goal Patient has realistic goal of being discharged at assistance level 6-Pop to reside at Home with Fam poppy/Relatives. MDM/PLAN: - Physical Therapy Gait dysfunction - to improve, our physical therapists will perform initial evaluation of pt's statu s upon admission and devise an individualized program for Gait Training, and Wheel Chair mobility Inability to transfer - to improve, our physical therapists will perform initial evaluation of pt's status upon admission and devise an individualized program for Bed mobility Need for home safety evaluation - to improve, our physical therapists will perform initial evaluatio n of pt's status upon admission and devise an individualized program for Home Evaluation Need in caregiver upon discharge - to improve, our physical therapists will perform initial evaluati on of pt's status upon admission and devise an individualized program for Caregiver Training Edema - to improve, our physical therapists will perform initial evaluation of pt's status upon admi ssion and devise an individualized program for Elevation Training, and Lymphedema Therapy New precaution - to improve, our physical therapists will perform initial evaluation of pt's status upon admission and devise an individualized program for Patient precaution education Poor balance - to improve, our physical therapists will perform initial evaluation of pt's status up on admission and devise an individualized program for Balance Training Poor endurance - to improve, our physical therapists will perform initial evaluation of pt's status upon admission and devise an individualized program for Endurance Training Weakness - to improve, our physical therapists will perform initial evaluation of pt's status upon a dmission and devise an individualized program for Aquatic Therapy, Neuromuscular Reeducation, and Str engthening Achieving independence - to improve, our physical therapists will perform initial evaluation of pt's status upon admission and devise an individualized program for Community Reintegration Activities - Occupational Therapy ADL deficits - to improve, our occupation therapists will perform initial evaluation of pt's status upon admission and devise an individualized program for Bathing, Bed mobility, Community Reintegratio n, Cooking, Dressing, Eating, Fine Motor Skills, Grooming, Homemaking, Kitchen Mobility, Laundry, Pat ient Education, Safety Awareness, Splinting - Positioning, Transfers(Toilet, Tub, Shower), and Wheel Chair Management Cognitive deficits - to improve, our occupation therapists will perform initial evaluation of pt's s tatus upon admission and devise an individualized program for Cognition - orientation Need for patient centered care specialist - to improve, our occupation therapists will perform initial evaluation of pt's status upon admission and devise an individualized program for Caregiver Training Weakness - to improve, our occupation therapists will perform initial evaluation of pt's status upon admission and devise an individualized program for Aquatic Therapy, Balance, Endurance, UE ROM, and UE strengthening - Other See attached MAR (Medication Administration Record) - Diet Type Continue Regular - Diet - Liquid Texture Continue Regular - Tube Feed Continue N/A - Lab Results blood Sugar Check ACHS - Diet - Solid Texture Continue Regular - Shower allowing shower FUNCTIONAL STATUS: UPDATED AT WEEKLY TEAM CONFERENCE - Bladder Same accident frequency: 7-Ind - No accidents in the past 7 days - Bowel Same accident frequency: 7-Ind - No accidents in the past 7 days - Walking Same score based on distance walked: 0(N/A) Same score based on distance walked: 1(<=50ft) - Wheelchair Same score based on distance traveled: 0(N/A) FUNCTIONAL STATUS: - Self-Care A. Eating Ind B. Grooming Ind C. Bathing sup D. Dressing - Upper sup E. Dressing - Lower sup F. Toileting sup - Sphincter Control G. Bladder control sup H. Bowel control sup - Transfers Control I. Bed/Chair/Wheelchair Pop J. Toilet sup K. Tub/Shower sup - Locomotion L. Walk/Wheelchair (B) Pop M. Stairs Pop - Communication N. Comprehension (B) Pop O. Expression (B) Pop - Social Cognition P. Social Interaction Ind Q. Problem Solving Ind R. Memory Pop - Endurance Good - Balance Good - Safety Awareness Good QI SCORES: - Self-Care A. Eating 05-Setup or clean-up assistance B. Oral hygiene 05-Setup or clean-up assistance C. Toileting hygiene 02-Substantial/maximal assistance E. Shower/bathe self 03-Partial/moderate assistance F. Upper body dressing 03-Partial/moderate assistance G. Lower body dressing 02-Substantial/maximal assistance H. Putting on/taking off footwear 02-Substantial/maximal assistance - Mobility A. Roll left and right 03-Partial/moderate assistance B. Sit to lying 02-Substantial/maximal assistance C. Lying to sitting on side of bed 02-Substantial/maximal assistance D. Sit to stand 02-Substantial/maximal assistance E. Chair/kxb-ix-[id number] transfer 02-Substantial/maximal assistance F. Toilet transfer 02-Substantial/maximal assistance G. Car transfer 88-Not attempted due to medical condition or safety concerns I. Walk 10 feet 03-Partial/moderate assistance J. Walk 50 feet with two turns 88-Not attempted due to medical condition or safety concerns K. Walk 150 feet 88-Not attempted due to medical condition or safety concerns L. Walking 10 feet on uneven surfaces 88-Not attempted due to medical condition or safety concerns M. 1 step (curb) 88-Not attempted due to medical condition or safety concerns N. 4 steps 88-Not attempted due to medical condition or safety concerns O. 12 steps 88-Not attempted due to medical condition or safety concerns P. Picking up object 88-Not attempted due to medical condition or safety concerns R. Wheel 50 feet with two turns 88-Not attempted due to medical condition or safety concerns S. Wheel 150 feet 88-Not attempted due to medical condition or safety concerns - Bladder and Bowel Bladder continence 0-Always continent Bowel continence 0-Always continent - Endurance Poor - Balance Fair - Safety Awareness Fair CURRENT FUNC. DEFICITS: Self-Care, Mobility, Endurance, Balance, and Safety Awareness SIGNATURE PANEL: (PRESS WORKER HELPER)
[2019-06-20] MEDS: RIVAROXABAN 20 MG TABLET PO SCH (16:36)
[2019-06-20] MEDS: ATORVASTATIN 10 MG TAB PO SCH (21:01)
[2019-06-20] MEDS: MONTELUKAST 10 MG TAB PO SCH (21:02)
[2019-06-20] MEDS: TRAMADOL HCL 50 MG TAB PO PRN (21:16)
--- NOTE | 2019-06-20 21:44 | R.PN ---
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 Pt denied any Shortness of Breath. She ambulated 500' with independence. Up and down 5 steps with bilateral handrails with partial gabriel tance. Her cough has improved slightly. Glucose 149 to 234. [id number] show mild lung infiltrate. She is on nebulizers, incentive spirometry, tesselon perle and robitussin. Self propelled wheelchair 250' with maximum assistance. VITAL SIGNS Temperature: 98.0 F SBP/DBP: 140/74 Pulse: 74 Resp: 16 MEDICATION ALLERGIES: CIPROFLOXACIN Erythromycin Losartan MACROLIDE Penicillin PENTOXIFYLLINE ENVIRONMENTAL ALLERGIES: None Known - Substance Allergies None Known - Other Allergies None Known NURSING: - Shower allowing shower - Lab Results blood Sugar Check ACHS ACTIVITIES OOB only with supervision THERAPIES: - Dietary and Nutrition Adequate Nutrition. Nutritional Education. Nutritional Supplements. PHYSICAL EXAM - Gen Alert and awake Lying in bed No apparent distress Oriented to: person, time, and place - Skin No skin breakdown. Normacephalic - Eyes No abnormalities - ENMT No abnormalities - Neck No abnormalities - CVS RRR - Chest No abnormalities - Resp Clear to auscultation - Abd Soft - GI Non distended Deferred - No abnormalities - Ext Mild bilateral lower extremity edema. - MSK 4+/5 weakness in both lower extremities. - Neuro No focal deficits - Psych No abnormalities ASSESSMENT: Pt. is a 73 yo Right-handed white female.On 06/09/2019 she was admitted to [facility] with diagnosis Peripheral Artery Disease.Her impairment category is Medically Complex Conditio ns 17 - Circulatory Disorders (17.4).Pre-morbidly, Pt. was independent/mod-I in Locomotion, Safety A wareness, Balance, Social Cognition, Transfers Control, Sphincter Control, Self-Care, Communication, and Endurance; and she had good Locomotion, Safety Awareness, Social Cognition, Balance, Transfers Co ntrol, Sphincter Control, Self-Care, and Communication.Currently, she has deficits of Locomotion, Saf ety Awareness, Balance, Social Cognition, Transfers Control, Sphincter Control, Self-Care, Communicat ion, and Endurance.Pt. is now referred to [facility] for acute in-patient reha bilitation in order to maximize patient's functional independence in activities of daily living, stre ngth, ROM, and mobility.- Rehab Goal Patient has realistic goal of being discharged at assistance level 6-Pop to reside at Home with Fam poppy/Relatives. MDM/PLAN: - Physical Therapy Gait dysfunction - to improve, our physical therapists will perform initial evaluation of pt's statu s upon admission and devise an individualized program for Gait Training, and Wheel Chair mobility Inability to transfer - to improve, our physical therapists will perform initial evaluation of pt's status upon admission and devise an individualized program for Bed mobility Need for home safety evaluation - to improve, our physical therapists will perform initial evaluatio n of pt's status upon admission and devise an individualized program for Home Evaluation Need in caregiver upon discharge - to improve, our physical therapists will perform initial evaluati on of pt's status upon admission and devise an individualized program for Caregiver Training Edema - to improve, our physical therapists will perform initial evaluation of pt's status upon admi ssion and devise an individualized program for Elevation Training, and Lymphedema Therapy New precaution - to improve, our physical therapists will perform initial evaluation of pt's status upon admission and devise an individualized program for Patient precaution education Poor balance - to improve, our physical therapists will perform initial evaluation of pt's status up on admission and devise an individualized program for Balance Training Poor endurance - to improve, our physical therapists will perform initial evaluation of pt's status upon admission and devise an individualized program for Endurance Training Weakness - to improve, our physical therapists will perform initial evaluation of pt's status upon a dmission and devise an individualized program for Aquatic Therapy, Neuromuscular Reeducation, and Str engthening Achieving independence - to improve, our physical therapists will perform initial evaluation of pt's status upon admission and devise an individualized program for Community Reintegration Activities - Occupational Therapy ADL deficits - to improve, our occupation therapists will perform initial evaluation of pt's status upon admission and devise an individualized program for Bathing, Bed mobility, Community Reintegratio n, Cooking, Dressing, Eating, Fine Motor Skills, Grooming, Homemaking, Kitchen Mobility, Laundry, Pat ient Education, Safety Awareness, Splinting - Positioning, Transfers(Toilet, Tub, Shower), and Wheel Chair Management Cognitive deficits - to improve, our occupation therapists will perform initial evaluation of pt's s tatus upon admission and devise an individualized program for Cognition - orientation Need for post acute care nurse - to improve, our occupation therapists will perform initial evaluation of pt's status upon admission and devise an individualized program for Caregiver Training Weakness - to improve, our occupation therapists will perform initial evaluation of pt's status upon admission and devise an individualized program for Aquatic Therapy, Balance, Endurance, UE ROM, and UE strengthening - Other See attached MAR (Medication Administration Record) - Diet Type Continue Regular - Diet - Liquid Texture Continue Regular - Tube Feed Continue N/A - Lab Results blood Sugar Check ACHS - Diet - Solid Texture Continue Regular - Shower allowing shower FUNCTIONAL STATUS: UPDATED AT WEEKLY TEAM CONFERENCE - Bladder Same accident frequency: 7-Ind - No accidents in the past 7 days - Bowel Same accident frequency: 7-Ind - No accidents in the past 7 days - Walking Same score based on distance walked: 0(N/A) Same score based on distance walked: 1(<=50ft) - Wheelchair Same score based on distance traveled: 0(N/A) FUNCTIONAL STATUS: - Self-Care A. Eating Ind B. Grooming Ind C. Bathing sup D. Dressing - Upper sup E. Dressing - Lower sup F. Toileting sup - Sphincter Control G. Bladder control sup H. Bowel control sup - Transfers Control I. Bed/Chair/Wheelchair Pop J. Toilet sup K. Tub/Shower sup - Locomotion L. Walk/Wheelchair (B) Pop M. Stairs Pop - Communication N. Comprehension (B) Pop O. Expression (B) Pop - Social Cognition P. Social Interaction Ind Q. Problem Solving Ind R. Memory Pop - Endurance Good - Balance Good - Safety Awareness Good QI SCORES: - Self-Care A. Eating 05-Setup or clean-up assistance B. Oral hygiene 05-Setup or clean-up assistance C. Toileting hygiene 02-Substantial/maximal assistance E. Shower/bathe self 03-Partial/moderate assistance F. Upper body dressing 03-Partial/moderate assistance G. Lower body dressing 02-Substantial/maximal assistance H. Putting on/taking off footwear 02-Substantial/maximal assistance - Mobility A. Roll left and right 03-Partial/moderate assistance B. Sit to lying 02-Substantial/maximal assistance C. Lying to sitting on side of bed 02-Substantial/maximal assistance D. Sit to stand 02-Substantial/maximal assistance E. Chair/kxa-if-bmgik transfer 02-Substantial/maximal assistance F. Toilet transfer 02-Substantial/maximal assistance G. Car transfer 88-Not attempted due to medical condition or safety concerns I. Walk 10 feet 03-Partial/moderate assistance J. Walk 50 feet with two turns 88-Not attempted due to medical condition or safety concerns K. Walk 150 feet 88-Not attempted due to medical condition or safety concerns L. Walking 10 feet on uneven surfaces 88-Not attempted due to medical condition or safety concerns M. 1 step (curb) 88-Not attempted due to medical condition or safety concerns N. 4 steps 88-Not attempted due to medical condition or safety concerns O. 12 steps 88-Not attempted due to medical condition or safety concerns P. Picking up object 88-Not attempted due to medical condition or safety concerns R. Wheel 50 feet with two turns 88-Not attempted due to medical condition or safety concerns S. Wheel 150 feet 88-Not attempted due to medical condition or safety concerns - Bladder and Bowel Bladder continence 0-Always continent Bowel continence 0-Always continent - Endurance Poor - Balance Fair - Safety Awareness Fair CURRENT FUNC. DEFICITS: Self-Care, Mobility, Endurance, Balance, and Safety Awareness SIGNATURE PANEL: (SHOE LINING FITTER)
[2019-06-20] MEDS: DIPHENHYDRAMINE 12.5MG/5ML LIQ PO PRN (23:02)
[2019-06-21 07:00] LABS: Absolute Lymphocytes (CBC) 1.9 K/uL (0.7-4.9); Basophils % 0.8 % (0-1.3); Hematocrit 29.4 % (36.0-45.0); Lymphocytes % 18.3 % (15.3-44.8); MPV 8.6 fL (7.6-11.3); RBC Red Blood Cell Count 3.68 M/uL (3.86-4.86)
[2019-06-21] MEDS: LEVOTHYROXINE SOD 0.025 MG TAB PO SCH (07:00)
[2019-06-21] MEDS: PANTOPRAZOLE 40MG TABLET PO SCH (07:00)
[2019-06-21 07:30] LABS: Magnesium 2.3 mg/dL (1.8-2.4); Potassium 4.3 mmol/L (3.5-5.1); Prealbumin 18.4 mg/dL (20-40)
[2019-06-21] MEDS: INSULIN -REGULAR HUMAN 50 UNIT/0.5 ML ML SQ SCH ×4 (07:30→21:05)
[2019-06-21] MEDS: NYSTATIN PWDR 100000 UNIT/GM TOP SCH ×2 (08:00→19:40)
[2019-06-21] MEDS: ACETIC ACID 0.25% IRRIG IRR SCH (08:00)
[2019-06-21] MEDS: IPRATROPIUM BROM 0.5MG/2.5ML NEB SCH ×2 (08:25→14:00)
[2019-06-21] MEDS: ALBUTEROL 2.5 MG/3 ML NEB SOL NEB PRN (08:25)
[2019-06-21] MEDS: POTASSIUM CL SA 10 MEQ TAB PO SCH ×2 (08:33→19:36)
[2019-06-21] MEDS: FE SULF/FA/VIT B COMP & C TAB PO SCH (08:33)
[2019-06-21] MEDS: ACETAMINOPHEN 500 MG TAB PO PRN (08:34)
[2019-06-21] MEDS: predniSONE 10 MG TAB PO SCH (08:34)
[2019-06-21] MEDS: FERROUS SULFATE 325 MG TAB PO SCH (08:35)
[2019-06-21] MEDS: PRAMIPEXOLE 0.25 MG TAB PO SCH ×2 (08:35→19:37)
[2019-06-21] MEDS: ASPIRIN 81 MG CHEWABLE TABLET PO SCH (08:35)
[2019-06-21] MEDS: MIDODRINE HCL 5 MG TABLET PO SCH ×3 (08:35→19:36)
[2019-06-21] MEDS: GLIMEPIRIDE 2 MG TABLET PO SCH ×2 (08:36→16:55)
[2019-06-21] MEDS: SMZ./TMP. 800/160 MG TABLET PO SCH ×2 (08:36→19:37)
[2019-06-21] MEDS: GUAIFENESIN 600 MG SA TAB PO SCH ×2 (08:36→19:37)
[2019-06-21] MEDS: FUROSEMIDE 20 MG TABLET PO SCH ×2 (08:37→16:55)
[2019-06-21] MEDS: SPIRONOLACTONE 25 MG TABLET PO SCH ×2 (08:37→19:37)
[2019-06-21] MEDS: METOPROLOL XL 25 MG TAB PO SCH ×2 (08:38→19:37)
[2019-06-21] MEDS: CLINDAMYCIN HCL 150 MG CAP PO SCH ×3 (08:39→19:36)
[2019-06-21] MEDS: PREGABALIN 150 MG CAP PO SCH ×2 (09:29→19:36)
[2019-06-21] MEDS: PROMOD 30 ML DOSE PO SCH ×2 (09:30→19:41)
[2019-06-21] MEDS ORDERED: IPRATROPIUM BROM 0.5MG/2.5ML NEB PRN (15:12)
--- NOTE | 2019-06-21 15:52 | FAST ---
ENCOUNTER DATE AND TIME: 06/21/2019 08:00 (TRAFFIC RATE ANALYST) NAME IVETT FITZPATRICK DATE OF : 1945 DATE OF ADMISSION: 06/13/2019 16:44 (TRAFFIC RATE ANALYST) PHONE: AGE: 73 N# [id number] GENDER: Female ENCOUNTER PHYSICIAN: Dr. Ian Dc M.D. ADMISSION DIAGNOSIS: - Medically Complex Conditions 17 - Circulatory Disorders (17.4) Peripheral Artery Disease. ROLL LEFT AND RIGHT: ROLL LEFT AND RIGHT - STEP 1: Does the patient complete the activity by him/herself with no assistance (physical, verbal/nonverbal cueing, setup/clean-up)? Yes. 1. [id number] ADMISSION PERFORMANCE: Independent CODE: 06 SIT TO LYING: SIT TO LYING - STEP 1: Does the patient complete the activity by him/herself with no assistance (physical, verbal/nonverbal cueing, setup/clean-up)? Yes. 1. [id number] ADMISSION PERFORMANCE: Independent CODE: 06 LYING TO SITTING: LYING TO SITTING ON SIDE OF BED - STEP 1: Does the patient complete the activity by him/herself with no assistance (physical, verbal/nonverbal cueing, setup/clean-up)? Yes. 1. [id number] ADMISSION PERFORMANCE: Independent CODE: 06 SIT TO STAND: SIT TO STAND - STEP 1: Does the patient complete the activity by him/herself with no assistance (physical, verbal/nonverbal cueing, setup/clean-up)? Yes. 1. [id number] ADMISSION PERFORMANCE: Independent CODE: 06 TRANSFERS: BED, CHAIR: CHAIR/[id number]-[id number] TRANSFER - STEP 1: Does the patient complete the activity by him/herself with no assistance (physical, verbal/nonverbal cueing, setup/clean-up)? Yes. 1. [id number] ADMISSION PERFORMANCE: Independent CODE: 06 TRANSFER TOILET: TOILET TRANSFER - STEP 1: Does the patient complete the activity by him/herself with no assistance (physical, verbal/nonverbal cueing, setup/clean-up)? Yes. 1. [id number] ADMISSION PERFORMANCE: Independent CODE: 06 TRANSFERS: CAR: Not attempted due to environmental limitations (e.g., lack of equipment, weather constraints) CODE: 10 WALK 10 FEET: WALK 10 FEET - STEP 1: Does the patient complete the activity by him/herself with no assistance (physical, verbal/nonverbal cueing, setup/clean-up)? No. WALK 10 FEET - STEP 2: Does the patient need only setup/clean-up assistance from one helper? Yes. 1. [id number] ADMISSION PERFORMANCE: Setup or clean-up assistance CODE: 05 WALK 50 FEET: WALK 50 FEET - STEP 1: Does the patient complete the activity by him/herself with no assistance (physical, verbal/nonverbal cueing, setup/clean-up)? No. WALK 50 FEET - STEP 2: Does the patient need only setup/clean-up assistance from one helper? Yes. 1. [id number] ADMISSION PERFORMANCE: Setup or clean-up assistance CODE: 05 WALK 150 FEET: WALK 150 FEET - STEP 1: Does the patient complete the activity by him/herself with no assistance (physical, verbal/nonverbal cueing, setup/clean-up)? No. WALK 150 FEET - STEP 2: Does the patient need only setup/clean-up assistance from one helper? Yes. 1. [id number] ADMISSION PERFORMANCE: Setup or clean-up assistance CODE: WALK 10 FEET UNEVEN: Not attempted due to medical condition or safety concerns CODE: 88 1 STEP (CURB): 1 STEP CURB - STEP 1: Does the patient complete the activity by him/herself with no assistance (physical, verbal/nonverbal cueing, setup/clean-up)? No. 1 STEP CURB - STEP 2: Does the patient need only setup/clean-up assistance from one helper? No. 1 STEP CURB - STEP 3: Does the patient need only verbal/nonverbal cueing or touching/steadying/contact guard assistance fro m one helper? Yes. 1. [id number] ADMISSION PERFORMANCE: Supervision or touching assistance CODE: 04 4 STEPS: 4 STEPS - STEP 1: Does the patient complete the activity by him/herself with no assistance (physical, verbal/nonverbal cueing, setup/clean-up)? No. 4 STEPS - STEP 2: Does the patient need only setup/clean-up assistance from one helper? No. 4 STEPS - STEP 3: Does the patient need only verbal/nonverbal cueing or touching/steadying/contact guard assistance fro m one helper? Yes. 1. [id number] ADMISSION PERFORMANCE: Supervision or touching assistance CODE: 04 12 STEPS: 12 STEPS - STEP 1: Does the patient complete the activity by him/herself with no assistance (physical, verbal/nonverbal cueing, setup/clean-up)? No. 12 STEPS - STEP 2: Does the patient need only setup/clean-up assistance from one helper? No. 12 STEPS - STEP 3: Does the patient need only verbal/nonverbal cueing or touching/steadying/contact guard assistance fro m one helper? Yes. 1. [id number] ADMISSION PERFORMANCE: Supervision or touching assistance CODE: 04 PICKING UP OBJECT: Not attempted due to medical condition or safety concerns CODE: 88 DOES THE PATIENT USE A WHEELCHAIR/SCOOTER? Q1. DOES THE PATIENT USE A WHEELCHAIR/SCOOTER?: Yes CODE: 1 WHEEL 50 FEET WITH TWO TURNS: WHEEL 50 FEET WITH TWO TURNS - STEP 1: Does the patient complete the activity by him/herself with no assistance (physical, verbal/nonverbal cueing, setup/clean-up)? No. WHEEL 50 FEET WITH TWO TURNS - STEP 2: Does the patient need only setup/clean-up assistance from one helper? Yes. 1. [id number] ADMISSION PERFORMANCE: Setup or clean-up assistance CODE: 05 INDICATE THE TYPE OF WHEELCHAIR/SCOOTER USED: RR1. INDICATE THE TYPE OF WHEELCHAIR/SCOOTER USED.: Manual CODE: 1 WHEEL 150 FEET: WHEEL 150 FEET - STEP 1: Does the patient complete the activity by him/herself with no assistance (physical, verbal/nonverbal cueing, setup/clean-up)? No. WHEEL 150 FEET - STEP 2: Does the patient need only setup/clean-up assistance from one helper? Yes. 1. [id number] ADMISSION PERFORMANCE: Setup or clean-up assistance CODE: 05 INDICATE THE TYPE OF WHEELCHAIR/SCOOTER USED: SS1. INDICATE THE TYPE OF WHEELCHAIR/SCOOTER USED.: Manual CODE: 1 BLADDER AND BOWEL: CODE: EXPR CODE: EXPR SIGNATURE PANEL: The following modified sections: 1. [id number] Admission Performance, 1. [id number] Admission Performance, 1. SI0601P Admission Performance, 1. [id number] Admission Performance, 1. [id number] Admission Performance, 1. [id number] Admission Performance, 1. WA0413V Admission Performance, 1. [id number] Admission Performance , 1. [id number] Admission Performance, 1. [id number] Admission Performance, 1. [id number] Admission Performanc e, 1. [id number] Admission Performance, Q1. Does the patient use a wheelchair/scooter?, 1. [id number] Admis dioni Performance, RR1. Indicate the type of wheelchair/scooter used., 1. [id number] Admission Performanc e, Code, SS1. Indicate the type of wheelchair/scooter used. were [electronically] signed by Bar rosenberg PTA on TueJun 21 2019 15:52:35 GMT-0600 (Central Standard Time)
[2019-06-21] MEDS: RIVAROXABAN 20 MG TABLET PO SCH (16:55)
[2019-06-21] MEDS: MONTELUKAST 10 MG TAB PO SCH (19:37)
[2019-06-21] MEDS: ATORVASTATIN 10 MG TAB PO SCH (19:37)
[2019-06-21] MEDS: TRAMADOL HCL 50 MG TAB PO PRN (19:38)
[2019-06-21] MEDS: DOCUSATE NA/SENNA CONC 1 TAB PO PRN (19:39)
--- NOTE | 2019-06-21 20:47 | R.PN ---
ENCOUNTER DATE AND TIME: 06/21/2019 20:43 (RUBBER MILL OPERATOR) NAME IVETT FITZPATRICK DATE OF : 1945 DATE OF ADMISSION: 06/13/2019 16:44 (RUBBER MILL OPERATOR) Peripheral Artery DiseaseCHIEF COMPLAINT: Debility and peripheral arterial disease SUBJECTIVE: Pt denied any depression. Pt denied any Shortness of Breath. She ambulated 500' with independence. Up and down 5 steps with bilateral handrails with partial gabriel tance. Her cough has improved slightly. Glucose 149 to 234. Hhfip-x-[id number] show mild lung infiltrate. She is on nebulizers, incentive spirometry, tesselon perle and robitussin. Self propelled wheelchair 250' with moderate assistance. VITAL SIGNS Temperature: 98.0 F SBP/DBP: 145/78 Pulse: 81 Resp: 16 MEDICATION ALLERGIES: CIPROFLOXACIN Erythromycin Losartan MACROLIDE Penicillin PENTOXIFYLLINE ENVIRONMENTAL ALLERGIES: None Known - Substance Allergies None Known - Other Allergies None Known NURSING: - Shower allowing shower - Lab Results blood Sugar Check ACHS ACTIVITIES OOB only with supervision THERAPIES: - Dietary and Nutrition Adequate Nutrition. Nutritional Education. Nutritional Supplements. PHYSICAL EXAM - Gen Alert and awake Lying in bed No apparent distress Oriented to: person, time, and place - Skin No skin breakdown. Normacephalic - Eyes No abnormalities - ENMT No abnormalities - Neck No abnormalities - CVS RRR - Chest No abnormalities - Resp Clear to auscultation - Abd Soft - GI Non distended Deferred - No abnormalities - Ext Mild bilateral lower extremity edema. - MSK 4+/5 weakness in both lower extremities. - Neuro No focal deficits - Psych No abnormalities ASSESSMENT: Pt. is a 73 yo Right-handed white female.On 06/09/2019 she was admitted to [facility] with diagnosis Peripheral Artery Disease.Her impairment category is Medically Complex Conditio ns 17 - Circulatory Disorders (17.4).Pre-morbidly, Pt. was independent/mod-I in Locomotion, Safety A wareness, Balance, Social Cognition, Transfers Control, Sphincter Control, Self-Care, Communication, and Endurance; and she had good Locomotion, Safety Awareness, Social Cognition, Balance, Transfers Co ntrol, Sphincter Control, Self-Care, and Communication.Currently, she has deficits of Locomotion, Saf ety Awareness, Balance, Social Cognition, Transfers Control, Sphincter Control, Self-Care, Communicat ion, and Endurance.Pt. is now referred to [facility] for acute in-patient reha bilitation in order to maximize patient's functional independence in activities of daily living, stre ngth, ROM, and mobility.- Rehab Goal Patient has realistic goal of being discharged at assistance level 6-Pop to reside at Home with Fam poppy/Relatives. MDM/PLAN: - Physical Therapy Gait dysfunction - to improve, our physical therapists will perform initial evaluation of pt's statu s upon admission and devise an individualized program for Gait Training, and Wheel Chair mobility Inability to transfer - to improve, our physical therapists will perform initial evaluation of pt's status upon admission and devise an individualized program for Bed mobility Need for home safety evaluation - to improve, our physical therapists will perform initial evaluatio n of pt's status upon admission and devise an individualized program for Home Evaluation Need in caregiver upon discharge - to improve, our physical therapists will perform initial evaluati on of pt's status upon admission and devise an individualized program for Caregiver Training Edema - to improve, our physical therapists will perform initial evaluation of pt's status upon admi ssion and devise an individualized program for Elevation Training, and Lymphedema Therapy New precaution - to improve, our physical therapists will perform initial evaluation of pt's status upon admission and devise an individualized program for Patient precaution education Poor balance - to improve, our physical therapists will perform initial evaluation of pt's status up on admission and devise an individualized program for Balance Training Poor endurance - to improve, our physical therapists will perform initial evaluation of pt's status upon admission and devise an individualized program for Endurance Training Weakness - to improve, our physical therapists will perform initial evaluation of pt's status upon a dmission and devise an individualized program for Aquatic Therapy, Neuromuscular Reeducation, and Str engthening Achieving independence - to improve, our physical therapists will perform initial evaluation of pt's status upon admission and devise an individualized program for Community Reintegration Activities - Occupational Therapy ADL deficits - to improve, our occupation therapists will perform initial evaluation of pt's status upon admission and devise an individualized program for Bathing, Bed mobility, Community Reintegratio n, Cooking, Dressing, Eating, Fine Motor Skills, Grooming, Homemaking, Kitchen Mobility, Laundry, Pat ient Education, Safety Awareness, Splinting - Positioning, Transfers(Toilet, Tub, Shower), and Wheel Chair Management Cognitive deficits - to improve, our occupation therapists will perform initial evaluation of pt's s tatus upon admission and devise an individualized program for Cognition - orientation Need for pulmonary care nurse - to improve, our occupation therapists will perform initial evaluation of pt's status upon admission and devise an individualized program for Caregiver Training Weakness - to improve, our occupation therapists will perform initial evaluation of pt's status upon admission and devise an individualized program for Aquatic Therapy, Balance, Endurance, UE ROM, and UE strengthening - Other See attached MAR (Medication Administration Record) - Diet Type Continue Regular - Diet - Liquid Texture Continue Regular - Tube Feed Continue N/A - Lab Results blood Sugar Check ACHS - Diet - Solid Texture Continue Regular - Shower allowing shower FUNCTIONAL STATUS: UPDATED AT WEEKLY TEAM CONFERENCE - Bladder Same accident frequency: 7-Ind - No accidents in the past 7 days - Bowel Same accident frequency: 7-Ind - No accidents in the past 7 days - Walking Same score based on distance walked: 0(N/A) Same score based on distance walked: 1(<=50ft) - Wheelchair Same score based on distance traveled: 0(N/A) FUNCTIONAL STATUS: - Self-Care A. Eating Ind B. Grooming Ind C. Bathing sup D. Dressing - Upper sup E. Dressing - Lower sup F. Toileting sup - Sphincter Control G. Bladder control sup H. Bowel control sup - Transfers Control I. Bed/Chair/Wheelchair Pop J. Toilet sup K. Tub/Shower sup - Locomotion L. Walk/Wheelchair (B) Pop M. Stairs Pop - Communication N. Comprehension (B) Pop O. Expression (B) Pop - Social Cognition P. Social Interaction Ind Q. Problem Solving Ind R. Memory Pop - Endurance Good - Balance Good - Safety Awareness Good QI SCORES: - Self-Care A. Eating 05-Setup or clean-up assistance B. Oral hygiene 05-Setup or clean-up assistance C. Toileting hygiene 02-Substantial/maximal assistance E. Shower/bathe self 03-Partial/moderate assistance F. Upper body dressing 03-Partial/moderate assistance G. Lower body dressing 02-Substantial/maximal assistance H. Putting on/taking off footwear 02-Substantial/maximal assistance - Mobility A. Roll left and right 03-Partial/moderate assistance B. Sit to lying 02-Substantial/maximal assistance C. Lying to sitting on side of bed 02-Substantial/maximal assistance D. Sit to stand 02-Substantial/maximal assistance E. Chair/xjn-yi-ggoyk transfer 02-Substantial/maximal assistance F. Toilet transfer 02-Substantial/maximal assistance G. Car transfer 88-Not attempted due to medical condition or safety concerns I. Walk 10 feet 03-Partial/moderate assistance J. Walk 50 feet with two turns 88-Not attempted due to medical condition or safety concerns K. Walk 150 feet 88-Not attempted due to medical condition or safety concerns L. Walking 10 feet on uneven surfaces 88-Not attempted due to medical condition or safety concerns M. 1 step (curb) 88-Not attempted due to medical condition or safety concerns N. 4 steps 88-Not attempted due to medical condition or safety concerns O. 12 steps 88-Not attempted due to medical condition or safety concerns P. Picking up object 88-Not attempted due to medical condition or safety concerns R. Wheel 50 feet with two turns 88-Not attempted due to medical condition or safety concerns S. Wheel 150 feet 88-Not attempted due to medical condition or safety concerns - Bladder and Bowel Bladder continence 0-Always continent Bowel continence 0-Always continent - Endurance Poor - Balance Fair - Safety Awareness Fair CURRENT FUNC. DEFICITS: Self-Care, Mobility, Endurance, Balance, and Safety Awareness SIGNATURE PANEL: (RUBBER MILL OPERATOR)
[2019-06-21] MEDS ORDERED: INSULIN -REGULAR HUMAN 50 UNIT/0.5 ML ML ONE (21:03)
[2019-06-22] MEDS: PANTOPRAZOLE 40MG TABLET PO SCH (06:53)
[2019-06-22] MEDS: LEVOTHYROXINE SOD 0.025 MG TAB PO SCH (06:53)
[2019-06-22] MEDS: INSULIN -REGULAR HUMAN 50 UNIT/0.5 ML ML SQ SCH ×4 (07:30→20:57)
[2019-06-22] MEDS: PRAMIPEXOLE 0.25 MG TAB PO SCH ×2 (08:00→20:41)
[2019-06-22] MEDS: NYSTATIN PWDR 100000 UNIT/GM TOP SCH ×2 (08:00→20:00)
[2019-06-22] MEDS: POTASSIUM CL SA 10 MEQ TAB PO SCH ×2 (08:00→20:43)
[2019-06-22] MEDS: SPIRONOLACTONE 25 MG TABLET PO SCH ×2 (08:01→20:42)
[2019-06-22] MEDS: FERROUS SULFATE 325 MG TAB PO SCH (08:01)
[2019-06-22] MEDS: METOPROLOL XL 25 MG TAB PO SCH ×2 (08:01→20:44)
[2019-06-22] MEDS: PREGABALIN 150 MG CAP PO SCH ×2 (08:02→20:41)
[2019-06-22] MEDS: FE SULF/FA/VIT B COMP & C TAB PO SCH (08:02)
[2019-06-22] MEDS: SMZ./TMP. 800/160 MG TABLET PO SCH ×2 (08:02→20:42)
[2019-06-22] MEDS: FUROSEMIDE 20 MG TABLET PO SCH ×2 (08:03→17:27)
[2019-06-22] MEDS: ASPIRIN 81 MG CHEWABLE TABLET PO SCH (08:03)
[2019-06-22] MEDS: GUAIFENESIN 600 MG SA TAB PO SCH ×2 (08:03→20:43)
[2019-06-22] MEDS: predniSONE 10 MG TAB PO SCH (08:03)
[2019-06-22] MEDS: CLINDAMYCIN HCL 150 MG CAP PO SCH ×3 (08:03→20:44)
[2019-06-22] MEDS: GLIMEPIRIDE 2 MG TABLET PO SCH ×2 (08:04→17:28)
[2019-06-22] MEDS: MIDODRINE HCL 5 MG TABLET PO SCH ×3 (08:04→20:42)
[2019-06-22] MEDS: PROMOD 30 ML DOSE PO SCH ×2 (08:06→20:00)
--- NOTE | 2019-06-22 09:41 | P.RH.PN ---
Estimated Length of Stay: 16 Expected Discharge Date: 06/28/19 Discharge Disposition Plan: Home Family Support: Yes [facility] Goal: Mobility, Transfers, Self Care Vital Signs: Last Vital Signs Temp 97.6 F 06/21/19 20:00 Pulse 75 06/22/19 08:03 Resp 16 06/21/19 20:00 BP 108/58 L 06/22/19 08:03 Pulse Ox 94 06/21/19 20:00 Laboratory: Laboratory Last Values WBC 10.3 K/uL (4.3-10.9) 06/21/19 06:14 RBC 3.68 M/uL (3.86-4.86) L 06/21/19 06:14 Hgb 9.8 g/dL (12.0-15.0) L 06/21/19 06:14 Hct 29.4 % (36.0-45.0) L 06/21/19 06:14 MCV 79.8 fL (80-100) L 06/21/19 06:14 MCH 26.6 pg (27.0-35.0) L 06/21/19 06:14 MCHC 33.4 g/dL (32.0-36.0) 06/21/19 06:14 RDW 18.3 % (12.1-15.2) H 06/21/19 06:14 Plt Count 335 K/uL (152-406) D 06/21/19 06:14 MPV 8.6 fL (7.6-11.3) 06/21/19 06:14 Neutrophils % 64.5 % (41.7-73.7) 06/21/19 06:14 Lymphocytes % 18.3 % (15.3-44.8) 06/21/19 06:14 Monocytes % 10.6 % (3.3-12.3) 06/21/19 06:14 Eosinophils % 5.8 % (0-4.4) H 06/21/19 06:14 Basophils % 0.8 % (0-1.3) 06/21/19 06:14 Absolute Neutrophils 6.6 K/uL (1.8-8.0) 06/21/19 06:14 Absolute Lymphocytes 1.9 K/uL (0.7-4.9) 06/21/19 06:14 Absolute Monocytes 1.1 K/uL (0.1-1.3) 06/21/19 06:14 Absolute Eosinophils 0.6 K/uL (0-0.5) H 06/21/19 06:14 Absolute Basophils 0.1 K/uL (0-0.5) 06/21/19 06:14 Sodium 141 mmol/L (136-145) 06/21/19 06:14 Potassium 4.3 mmol/L (3.5-5.1) 06/21/19 06:14 Chloride 107 mmol/L (98-107) 06/21/19 06:14 Carbon Dioxide 31 mmol/L (21-32) 06/21/19 06:14 BUN 23 mg/dL (7-18) H 06/21/19 06:14 Creatinine 1.27 mg/dL (0.55-1.3) 06/21/19 06:14 Estimated GFR 41 mL/min (=/>90) L 06/21/19 06:14 Glucose 209 mg/dL (74-106) H 06/21/19 06:14 POC Glucose 89 mg/dl (65-120) 06/22/19 07:39 Calcium 8.8 mg/dL (8.5-10.1) 06/21/19 06:14 Magnesium 2.3 mg/dL (1.8-2.4) 06/21/19 06:14 Albumin 3.0 g/dL (3.4-5.0) L 06/21/19 06:14 Prealbumin 18.4 mg/dL (20-40) L 06/21/19 06:14 Weight: 270 lb 1.6 oz Wound Present: Yes Closed Surgical Incision Present: No Negative Pressure Wound Therapy Present: No Physician Update: Her labs have been reviewed and blood sugar this AM is 89 before breakfast, down from 363 last night. Will recheck with the next 2 hours. She is doing well with physical and occupational therapy. Medical Issues: Patient had cellulitis on bilateral lower extremities. on Clindamycin 150mg TID PO. Always continent with bladder and bowel. Functional Improvement: Patient has met all short-term goals and is progressing well toward long-term goals. Patient presents w/ good overall work ethic and technique. Summary: Patient's care plan and [facility] goals have been reviewed and revised as necessary. Please see the Rehabilitation Signature page for all necessary signatures.
[2019-06-22] MEDS: ACETIC ACID 0.25% IRRIG IRR SCH (12:23)
[2019-06-22] MEDS ORDERED: BISACODYL 10 MG RECTAL SUPP PR PRN (14:12)
--- NOTE | 2019-06-22 15:01 | FAST ---
ENCOUNTER DATE AND TIME: 06/22/2019 08:00 (HARDWARE ENGINEER) NAME IVETT FITZPATRICK DATE OF : 1945 DATE OF ADMISSION: 06/13/2019 16:44 (HARDWARE ENGINEER) PHONE: AGE: 73 N# [id number] GENDER: Female ENCOUNTER PHYSICIAN: Dr. Ian Dc M.D. ADMISSION DIAGNOSIS: - Medically Complex Conditions 17 - Circulatory Disorders (17.4) Peripheral Artery Disease. EATING: Not assessed/no information CODE: - ORAL HYGIENE: ORAL HYGIENE - STEP 1: Does the patient complete the activity by him/herself with no assistance (physical, verbal/nonverbal cueing, setup/clean-up)? Yes. 1. [id number] ADMISSION PERFORMANCE: Independent CODE: 06 TOILETING HYGIENE: Not assessed/no information CODE: - BATHING: SHOWER/BATHE SELF - STEP 1: Does the patient complete the activity by him/herself with no assistance (physical, verbal/nonverbal cueing, setup/clean-up)? No. SHOWER/BATHE SELF - STEP 2: Does the patient need only setup/clean-up assistance from one helper? No. SHOWER/BATHE SELF - STEP 3: Does the patient need only verbal/nonverbal cueing or touching/steadying/contact guard assistance fro m one helper? Yes. 1. [id number] ADMISSION PERFORMANCE: Supervision or touching assistance CODE: 04 DRESSING - UPPER BODY: DRESSING - UPPER BODY - STEP 1: Does the patient complete the activity by him/herself with no assistance (physical, verbal/nonverbal cueing, setup/clean-up)? Yes. 1. [id number] ADMISSION PERFORMANCE: Independent CODE: 06 DRESSING - LOWER BODY: DRESSING - LOWER BODY - STEP 1: Does the patient complete the activity by him/herself with no assistance (physical, verbal/nonverbal cueing, setup/clean-up)? No. DRESSING - LOWER BODY - STEP 2: Does the patient need only setup/clean-up assistance from one helper? No. DRESSING - LOWER BODY - STEP 3: Does the patient need only verbal/nonverbal cueing or touching/steadying/contact guard assistance fro m one helper? Yes. 1. [id number] ADMISSION PERFORMANCE: Supervision or touching assistance CODE: 04 PUTTING ON/TAKING OFF FOOTWEAR: FOOTWEAR - STEP 1: Does the patient complete the activity by him/herself with no assistance (physical, verbal/nonverbal cueing, setup/clean-up)? No. FOOTWEAR - STEP 2: Does the patient need only setup/clean-up assistance from one helper? No. FOOTWEAR - STEP 3: Does the patient need only verbal/nonverbal cueing or touching/steadying/contact guard assistance fro m one helper? Yes. 1. [id number] ADMISSION PERFORMANCE: Supervision or touching assistance CODE: 04 DOES THE PATIENT USE A WHEELCHAIR/SCOOTER? CODE: EXPR INDICATE THE TYPE OF WHEELCHAIR/SCOOTER USED: CODE: EXPR INDICATE THE TYPE OF WHEELCHAIR/SCOOTER USED: CODE: EXPR BLADDER AND BOWEL: CODE: EXPR CODE: EXPR SIGNATURE PANEL: The following modified sections: 1. [id number] Admission Performance, 1. [id number] Admission Performance, 1. [id number] Admission Performance, 1. [id number] Admission Performance, 1. [id number] Admission Performance were [electronically] signed by CEFERINO Sumner on TueJun 22 2019 15:00:01 GMT-0600 (Central Standard Time)
[2019-06-22] MEDS: POLYETHYL GLY 3350 17 GM/DOSE PO PRN (15:27)
[2019-06-22] MEDS: RIVAROXABAN 20 MG TABLET PO SCH (17:28)
[2019-06-22] MEDS: ATORVASTATIN 10 MG TAB PO SCH (20:41)
[2019-06-22] MEDS: MONTELUKAST 10 MG TAB PO SCH (20:43)
[2019-06-22] MEDS: DIPHENHYDRAMINE 12.5MG/5ML LIQ PO PRN (22:50)
--- NOTE | 2019-06-23 03:15 | FAST ---
SHIFT START DATE/TIME: 06/22/2019 19:00 (SENIOR COURTROOM CLERK) SHIFT END DATE/TIME: 06/23/2019 07:00 (SENIOR COURTROOM CLERK) NAME IVETT FITZPATRICK DATE OF : 1945 DATE OF ADMISSION: 06/13/2019 16:44 (SENIOR COURTROOM CLERK) PHONE: AGE: 73 SSN# [id number] GENDER: Female ENCOUNTER PHYSICIAN: Dr. Ian Dc M.D. ADMISSION DIAGNOSIS: - Medically Complex Conditions 17 - Circulatory Disorders (17.4) Peripheral Artery Disease. EATING: Not assessed/no information CODE: - ORAL HYGIENE: ORAL HYGIENE - STEP 1: Does the patient complete the activity by him/herself with no assistance (physical, verbal/nonverbal cueing, setup/clean-up)? No. ORAL HYGIENE - STEP 2: Does the patient need only setup/clean-up assistance from one helper? No. ORAL HYGIENE - STEP 3: Does the patient need only verbal/nonverbal cueing or touching/steadying/contact guard assistance fro one helper? Yes. 1. [id number] ADMISSION PERFORMANCE: Supervision or touching assistance CODE: 04 TOILETING HYGIENE: TOILETING HYGIENE - STEP 1: Does the patient complete the activity by him/herself with no assistance (physical, verbal/nonverbal cueing, setup/clean-up)? No. TOILETING HYGIENE - STEP 2: Does the patient need only setup/clean-up assistance from one helper? No. TOILETING HYGIENE - STEP 3: Does the patient need only verbal/nonverbal cueing or touching/steadying/contact guard assistance fro one helper? Yes. 1. [id number] ADMISSION PERFORMANCE: Supervision or touching assistance CODE: 04 BATHING: Not assessed/no information CODE: - DRESSING - UPPER BODY: Not assessed/no information CODE: - DRESSING - LOWER BODY: Not assessed/no information CODE: - PUTTING ON/TAKING OFF FOOTWEAR: Not assessed/no information CODE: - ROLL LEFT AND RIGHT: Not assessed/no information CODE: - SIT TO LYING: SIT TO LYING - STEP 1: Does the patient complete the activity by him/herself with no assistance (physical, verbal/nonverbal cueing, setup/clean-up)? No. SIT TO LYING - STEP 2: Does the patient need only setup/clean-up assistance from one helper? No. SIT TO LYING - STEP 3: Does the patient need only verbal/nonverbal cueing or touching/steadying/contact guard assistance fro m one helper? Yes. 1. [id number] ADMISSION PERFORMANCE: Supervision or touching assistance CODE: 04 LYING TO SITTING: LYING TO SITTING ON SIDE OF BED - STEP 1: Does the patient complete the activity by him/herself with no assistance (physical, verbal/nonverbal cueing, setup/clean-up)? No. LYING TO SITTING ON SIDE OF BED - STEP 2: Does the patient need only setup/clean-up assistance from one helper? No. LYING TO SITTING ON SIDE OF BED - STEP 3: Does the patient need only verbal/nonverbal cueing or touching/steadying/contact guard assistance fro m one helper? Yes. 1. [id number] ADMISSION PERFORMANCE: Supervision or touching assistance CODE: 04 SIT TO STAND: SIT TO STAND - STEP 1: Does the patient complete the activity by him/herself with no assistance (physical, verbal/nonverbal cueing, setup/clean-up)? No. SIT TO STAND - STEP 2: Does the patient need only setup/clean-up assistance from one helper? No. SIT TO STAND - STEP 3: Does the patient need only verbal/nonverbal cueing or touching/steadying/contact guard assistance fro m one helper? Yes. 1. [id number] ADMISSION PERFORMANCE: Supervision or touching assistance CODE: 04 TRANSFERS: BED, CHAIR: CHAIR/[id number] TRANSFER - STEP 1: Does the patient complete the activity by him/herself with no assistance (physical, verbal/nonverbal cueing, setup/clean-up)? No. CHAIR/[id number] TRANSFER - STEP 2: Does the patient need only setup/clean-up assistance from one helper? No. CHAIR/[id number] TRANSFER - STEP 3: Does the patient need only verbal/nonverbal cueing or touching/steadying/contact guard assistance fro m one helper? Yes. 1. [id number] ADMISSION PERFORMANCE: Supervision or touching assistance CODE: 04 TRANSFER TOILET: TOILET TRANSFER - STEP 1: Does the patient complete the activity by him/herself with no assistance (physical, verbal/nonverbal cueing, setup/clean-up)? No. TOILET TRANSFER - STEP 2: Does the patient need only setup/clean-up assistance from one helper? No. TOILET TRANSFER - STEP 3: Does the patient need only verbal/nonverbal cueing or touching/steadying/contact guard assistance fro m one helper? Yes. 1. [id number] ADMISSION PERFORMANCE: Supervision or touching assistance CODE: 04 TRANSFERS: CAR: Not assessed/no information CODE: - WALK 10 FEET: Not assessed/no information CODE: - 1 STEP (CURB): Not assessed/no information CODE: - PICKING UP OBJECT: Not assessed/no information CODE: - DOES THE PATIENT USE A WHEELCHAIR/SCOOTER? CODE: EXPR WHEEL 50 FEET WITH TWO TURNS: Not assessed/no information CODE: - INDICATE THE TYPE OF WHEELCHAIR/SCOOTER USED: CODE: EXPR WHEEL 150 FEET: Not assessed/no information CODE: - INDICATE THE TYPE OF WHEELCHAIR/SCOOTER USED: CODE: EXPR BLADDER AND BOWEL: H350. BLADDER CONTINENCE (3-DAY ASSESSMENT PERIOD): Incontinent less than daily (e.g., once or twice during the 3-day assessment period) CODE: 2 H400. BOWEL CONTINENCE (3-DAY ASSESSMENT PERIOD): Occasionally incontinent (one episode of bowel incontinence) CODE: 1
[2019-06-23] MEDS: LEVOTHYROXINE SOD 0.025 MG TAB PO SCH (06:15)
[2019-06-23] MEDS: PANTOPRAZOLE 40MG TABLET PO SCH (06:16)
[2019-06-23] MEDS: INSULIN -REGULAR HUMAN 50 UNIT/0.5 ML ML SQ SCH ×4 (07:30→21:33)
[2019-06-23] MEDS: PRAMIPEXOLE 0.25 MG TAB PO SCH ×2 (07:57→21:30)
[2019-06-23] MEDS: ASPIRIN 81 MG CHEWABLE TABLET PO SCH (07:57)
[2019-06-23] MEDS: FE SULF/FA/VIT B COMP & C TAB PO SCH (07:57)
[2019-06-23] MEDS: GLIMEPIRIDE 2 MG TABLET PO SCH ×2 (07:57→17:00)
[2019-06-23] MEDS: METOPROLOL XL 25 MG TAB PO SCH ×2 (07:58→19:34)
[2019-06-23] MEDS: PROMOD 30 ML DOSE PO SCH ×2 (07:59→19:35)
[2019-06-23] MEDS: NYSTATIN PWDR 100000 UNIT/GM TOP SCH ×2 (08:00→19:36)
[2019-06-23] MEDS: SPIRONOLACTONE 25 MG TABLET PO SCH ×2 (08:00→19:34)
[2019-06-23] MEDS: MIDODRINE HCL 5 MG TABLET PO SCH ×3 (08:00→21:31)
[2019-06-23] MEDS: SMZ./TMP. 800/160 MG TABLET PO SCH ×2 (08:00→19:34)
[2019-06-23] MEDS: predniSONE 10 MG TAB PO SCH (08:00)
[2019-06-23] MEDS: POTASSIUM CL SA 10 MEQ TAB PO SCH ×2 (08:00→19:33)
[2019-06-23] MEDS: PREGABALIN 150 MG CAP PO SCH ×2 (08:00→19:33)
[2019-06-23] MEDS: GUAIFENESIN 600 MG SA TAB PO SCH ×2 (08:01→19:34)
[2019-06-23] MEDS: FERROUS SULFATE 325 MG TAB PO SCH (08:01)
[2019-06-23] MEDS: FUROSEMIDE 20 MG TABLET PO SCH ×2 (08:01→17:00)
[2019-06-23] MEDS: CLINDAMYCIN HCL 150 MG CAP PO SCH ×3 (08:02→21:31)
[2019-06-23] MEDS: ACETIC ACID 0.25% IRRIG IRR SCH (09:28)
[2019-06-23] MEDS: POLYETHYL GLY 3350 17 GM/DOSE PO PRN (13:39)
--- NOTE | 2019-06-23 16:17 | FAST ---
SHIFT START DATE/TIME: 06/23/2019 07:00 ([employer]P [employer] SALES) SHIFT END DATE/TIME: 06/23/2019 19:00 ([employer]) NAME IVETT FITZPATRICK DATE OF : 1945 DATE OF ADMISSION: 06/13/2019 16:44 ([employer]) PHONE: AGE: 73 N# [id number] GENDER: Female ENCOUNTER PHYSICIAN: Dr. Ian Dc M.D. ADMISSION DIAGNOSIS: - Medically Complex Conditions 17 - Circulatory Disorders (17.4) Peripheral Artery Disease. EATING: EATING - STEP 1: Does the patient complete the activity by him/herself with no assistance (physical, verbal/nonverbal cueing, setup/clean-up)? No. EATING - STEP 2: Does the patient need only setup/clean-up assistance from one helper? Yes. 1. [id number] ADMISSION PERFORMANCE: Setup or clean-up assistance CODE: 05 ORAL HYGIENE: ORAL HYGIENE - STEP 1: Does the patient complete the activity by him/herself with no assistance (physical, verbal/nonverbal cueing, setup/clean-up)? Yes. 1. [id number] ADMISSION PERFORMANCE: Independent CODE: 06 TOILETING HYGIENE: TOILETING HYGIENE - STEP 1: Does the patient complete the activity by him/herself with no assistance (physical, verbal/nonverbal cueing, setup/clean-up)? Yes. 1. [id number] ADMISSION PERFORMANCE: Independent CODE: 06 BATHING: Not assessed/no information CODE: - DRESSING - UPPER BODY: DRESSING - UPPER BODY - STEP 1: Does the patient complete the activity by him/herself with no assistance (physical, verbal/nonverbal cueing, setup/clean-up)? Yes. 1. [id number] ADMISSION PERFORMANCE: Independent CODE: 06 DRESSING - LOWER BODY: DRESSING - LOWER BODY - STEP 1: Does the patient complete the activity by him/herself with no assistance (physical, verbal/nonverbal cueing, setup/clean-up)? Yes. 1. [id number] ADMISSION PERFORMANCE: Independent CODE: 06 PUTTING ON/TAKING OFF FOOTWEAR: FOOTWEAR - STEP 1: Does the patient complete the activity by him/herself with no assistance (physical, verbal/nonverbal cueing, setup/clean-up)? Yes. 1. [id number] ADMISSION PERFORMANCE: Independent CODE: 06 ROLL LEFT AND RIGHT: ROLL LEFT AND RIGHT - STEP 1: Does the patient complete the activity by him/herself with no assistance (physical, verbal/nonverbal cueing, setup/clean-up)? Yes. 1. [id number] ADMISSION PERFORMANCE: Independent CODE: 06 SIT TO LYING: SIT TO LYING - STEP 1: Does the patient complete the activity by him/herself with no assistance (physical, verbal/nonverbal cueing, setup/clean-up)? Yes. 1. [id number] ADMISSION PERFORMANCE: Independent CODE: 06 LYING TO SITTING: LYING TO SITTING ON SIDE OF BED - STEP 1: Does the patient complete the activity by him/herself with no assistance (physical, verbal/nonverbal cueing, setup/clean-up)? Yes. 1. [id number] ADMISSION PERFORMANCE: Independent CODE: 06 SIT TO STAND: SIT TO STAND - STEP 1: Does the patient complete the activity by him/herself with no assistance (physical, verbal/nonverbal cueing, setup/clean-up)? Yes. 1. [id number] ADMISSION PERFORMANCE: Independent CODE: 06 TRANSFERS: BED, CHAIR: CHAIR/[id number] TRANSFER - STEP 1: Does the patient complete the activity by him/herself with no assistance (physical, verbal/nonverbal cueing, setup/clean-up)? Yes. 1. [id number] ADMISSION PERFORMANCE: Independent CODE: 06 TRANSFER TOILET: TOILET TRANSFER - STEP 1: Does the patient complete the activity by him/herself with no assistance (physical, verbal/nonverbal cueing, setup/clean-up)? Yes. 1. [id number] ADMISSION PERFORMANCE: Independent CODE: 06 TRANSFERS: CAR: Not assessed/no information CODE: - WALK 10 FEET: Not assessed/no information CODE: - 1 STEP (CURB): Not assessed/no information CODE: - PICKING UP OBJECT: Not assessed/no information CODE: - DOES THE PATIENT USE A WHEELCHAIR/SCOOTER? Q1. DOES THE PATIENT USE A WHEELCHAIR/SCOOTER?: Yes CODE: 1 WHEEL 50 FEET WITH TWO TURNS: WHEEL 50 FEET WITH TWO TURNS - STEP 1: Does the patient complete the activity by him/herself with no assistance (physical, verbal/nonverbal cueing, setup/clean-up)? Yes. 1. [id number] ADMISSION PERFORMANCE: Independent CODE: 06 INDICATE THE TYPE OF WHEELCHAIR/SCOOTER USED: RR1. INDICATE THE TYPE OF WHEELCHAIR/SCOOTER USED.: Manual CODE: 1 WHEEL 150 FEET: WHEEL 150 FEET - STEP 1: Does the patient complete the activity by him/herself with no assistance (physical, verbal/nonverbal cueing, setup/clean-up)? Yes. 1. [id number] ADMISSION PERFORMANCE: Independent CODE: 06 INDICATE THE TYPE OF WHEELCHAIR/SCOOTER USED: SS1. INDICATE THE TYPE OF WHEELCHAIR/SCOOTER USED.: Manual CODE: 1 BLADDER AND BOWEL: H350. BLADDER CONTINENCE (3-DAY ASSESSMENT PERIOD): Stress incontinence only CODE: 1 H400. BOWEL CONTINENCE (3-DAY ASSESSMENT PERIOD): Always continent CODE: 0 SIGNATURE PANEL: The following modified sections: 1. [id number] Admission Performance, 1. [id number] Admission Performance, 1. QV2839I Admission Performance, 1. IJ3792w Admission Performance, 1. DW5575f Admission Performance, 1. XR1814s Admission Performance, 1. [id number] Admission Performance, 1. [id number] Admission Performance , 1. [id number] Admission Performance, 1. CA0337N Admission Performance, 1. RA0075C Admission Performanc e, 1. [id number] Admission Performance, Q1. Does the patient use a wheelchair/scooter?, 1. RQ1298O Admis dioni Performance, RR1. Indicate the type of wheelchair/scooter used., 1. [id number] Admission Performanc e, Code, SS1. Indicate the type of wheelchair/scooter used., H400. Bowel Continence (3-day assessment period), H350. Bladder Continence (3-day assessment period) were [electronically] signed by Tianna Valadez C.N.A. on TueJun 23 2019 16:17:10 GMT-0600 (Central Standard Time)
[2019-06-23] MEDS: RIVAROXABAN 20 MG TABLET PO SCH (17:00)
[2019-06-23] MEDS: ATORVASTATIN 10 MG TAB PO SCH (21:31)
[2019-06-23] MEDS: MONTELUKAST 10 MG TAB PO SCH (21:31)
[2019-06-23] MEDS: BENZONATATE 100 MG CAP PO PRN (23:18)
[2019-06-23] MEDS: DIPHENHYDRAMINE 12.5MG/5ML LIQ PO PRN (23:19)
[2019-06-24 05:43] VITALS: BMI 40.4
[2019-06-24] MEDS: LEVOTHYROXINE SOD 0.025 MG TAB PO SCH (06:31)
[2019-06-24] MEDS: PANTOPRAZOLE 40MG TABLET PO SCH (06:31)
[2019-06-24] MEDS: INSULIN -REGULAR HUMAN 50 UNIT/0.5 ML ML SQ SCH ×4 (07:30→22:06)
[2019-06-24] MEDS: PREGABALIN 150 MG CAP PO SCH ×2 (07:59→20:37)
[2019-06-24] MEDS: NYSTATIN PWDR 100000 UNIT/GM TOP SCH (08:00)
[2019-06-24] MEDS: CLINDAMYCIN HCL 150 MG CAP PO SCH ×3 (08:00→21:49)
[2019-06-24] MEDS: ASPIRIN 81 MG CHEWABLE TABLET PO SCH (08:01)
[2019-06-24] MEDS: METOPROLOL XL 25 MG TAB PO SCH ×2 (08:01→20:41)
[2019-06-24] MEDS: PROMOD 30 ML DOSE PO SCH ×2 (08:01→20:00)
[2019-06-24] MEDS: GLIMEPIRIDE 2 MG TABLET PO SCH ×2 (08:01→17:14)
[2019-06-24] MEDS: SMZ./TMP. 800/160 MG TABLET PO SCH ×2 (08:01→20:37)
[2019-06-24] MEDS: FUROSEMIDE 20 MG TABLET PO SCH ×2 (08:02→17:15)
[2019-06-24] MEDS: MIDODRINE HCL 5 MG TABLET PO SCH ×3 (08:02→21:49)
[2019-06-24] MEDS: GUAIFENESIN 600 MG SA TAB PO SCH ×2 (08:02→20:39)
[2019-06-24] MEDS: FERROUS SULFATE 325 MG TAB PO SCH (08:02)
[2019-06-24] MEDS: SPIRONOLACTONE 25 MG TABLET PO SCH ×2 (08:03→20:37)
[2019-06-24] MEDS: predniSONE 10 MG TAB PO SCH (08:03)
[2019-06-24] MEDS: POTASSIUM CL SA 10 MEQ TAB PO SCH ×2 (08:03→20:37)
[2019-06-24] MEDS: PRAMIPEXOLE 0.25 MG TAB PO SCH ×2 (08:03→21:50)
[2019-06-24] MEDS: FE SULF/FA/VIT B COMP & C TAB PO SCH (08:03)
[2019-06-24] MEDS: ACETIC ACID 0.25% IRRIG IRR SCH (08:04)
[2019-06-24] MEDS: RIVAROXABAN 20 MG TABLET PO SCH (17:14)
[2019-06-24] MEDS: MONTELUKAST 10 MG TAB PO SCH (21:49)
[2019-06-24] MEDS: ATORVASTATIN 10 MG TAB PO SCH (21:49)
[2019-06-24] MEDS: DOCUSATE NA/SENNA CONC 1 TAB PO PRN (21:53)
[2019-06-24] MEDS ORDERED: DIPHENHYDRAMINE 12.5MG/5ML LIQ ONE (22:02)
[2019-06-24] MEDS: DIPHENHYDRAMINE 12.5MG/5ML LIQ PO PRN (22:07)
[2019-06-25] MEDS: TRAMADOL HCL 50 MG TAB PO PRN ×2 (03:17→20:10)
[2019-06-25] MEDS: LEVOTHYROXINE SOD 0.025 MG TAB PO SCH (06:24)
[2019-06-25] MEDS: PANTOPRAZOLE 40MG TABLET PO SCH (06:24)
[2019-06-25] MEDS: INSULIN -REGULAR HUMAN 50 UNIT/0.5 ML ML SQ SCH ×4 (07:20→20:40)
[2019-06-25] MEDS: PROMOD 30 ML DOSE PO SCH ×2 (08:00→20:00)
[2019-06-25] MEDS: ACETIC ACID 0.25% IRRIG IRR SCH (08:00)
[2019-06-25] MEDS: CLINDAMYCIN HCL 150 MG CAP PO SCH ×3 (08:33→20:10)
[2019-06-25] MEDS: FERROUS SULFATE 325 MG TAB PO SCH (08:33)
[2019-06-25] MEDS: POTASSIUM CL SA 10 MEQ TAB PO SCH ×2 (08:33→20:09)
[2019-06-25] MEDS: FE SULF/FA/VIT B COMP & C TAB PO SCH (08:34)
[2019-06-25] MEDS: ASPIRIN 81 MG CHEWABLE TABLET PO SCH (08:34)
[2019-06-25] MEDS: GLIMEPIRIDE 2 MG TABLET PO SCH ×2 (08:35→17:20)
[2019-06-25] MEDS: METOPROLOL XL 25 MG TAB PO SCH ×2 (08:36→20:09)
[2019-06-25] MEDS: GUAIFENESIN 600 MG SA TAB PO SCH ×2 (08:36→20:09)
[2019-06-25] MEDS: SMZ./TMP. 800/160 MG TABLET PO SCH ×2 (08:36→20:10)
[2019-06-25] MEDS: FUROSEMIDE 20 MG TABLET PO SCH ×2 (08:36→17:20)
[2019-06-25] MEDS: MIDODRINE HCL 5 MG TABLET PO SCH ×3 (08:36→20:10)
[2019-06-25] MEDS: predniSONE 10 MG TAB PO SCH (08:37)
[2019-06-25] MEDS: PRAMIPEXOLE 0.25 MG TAB PO SCH ×2 (08:37→20:09)
[2019-06-25] MEDS: PREGABALIN 150 MG CAP PO SCH ×2 (08:37→20:10)
[2019-06-25] MEDS: SPIRONOLACTONE 25 MG TABLET PO SCH ×2 (08:38→20:11)
--- NOTE | 2019-06-25 09:47 | FAST ---
SHIFT START DATE/TIME: 06/25/2019 07:00 (WIND [employer]URBINE PERFORMANCE ENGINEER) SHIFT END DATE/TIME: 06/25/2019 19:00 (WIND TURBINE PERFORMANCE ENGINEER) NAME IVETT FITZPATRICK DATE OF : 1945 DATE OF ADMISSION: 06/13/2019 16:44 (WIND TURBINE PERFORMANCE ENGINEER) PHONE: AGE: 73 SSN# [id number] GENDER: Female ENCOUNTER PHYSICIAN: Dr. Ian Dc M.D. ADMISSION DIAGNOSIS: - Medically Complex Conditions 17 - Circulatory Disorders (17.4) Peripheral Artery Disease. EATING: EATING - STEP 1: Does the patient complete the activity by him/herself with no assistance (physical, verbal/nonverbal cueing, setup/clean-up)? No. EATING - STEP 2: Does the patient need only setup/clean-up assistance from one helper? No. EATING - STEP 3: Does the patient need only verbal/nonverbal cueing or touching/steadying/contact guard assistance fro m one helper? Yes. 1. [id number] ADMISSION PERFORMANCE: Supervision or touching assistance CODE: 04 ORAL HYGIENE: ORAL HYGIENE - STEP 1: Does the patient complete the activity by him/herself with no assistance (physical, verbal/nonverbal cueing, setup/clean-up)? No. ORAL HYGIENE - STEP 2: Does the patient need only setup/clean-up assistance from one helper? No. ORAL HYGIENE - STEP 3: Does the patient need only verbal/nonverbal cueing or touching/steadying/contact guard assistance fro m one helper? Yes. 1. [id number] ADMISSION PERFORMANCE: Supervision or touching assistance CODE: 04 TOILETING HYGIENE: TOILETING HYGIENE - STEP 1: Does the patient complete the activity by him/herself with no assistance (physical, verbal/nonverbal cueing, setup/clean-up)? No. TOILETING HYGIENE - STEP 2: Does the patient need only setup/clean-up assistance from one helper? No. TOILETING HYGIENE - STEP 3: Does the patient need only verbal/nonverbal cueing or touching/steadying/contact guard assistance fro m one helper? Yes. 1. [id number] ADMISSION PERFORMANCE: Supervision or touching assistance CODE: 04 BATHING: Not assessed/no information CODE: - DRESSING - UPPER BODY: Not assessed/no information CODE: - DRESSING - LOWER BODY: Not assessed/no information CODE: - PUTTING ON/TAKING OFF FOOTWEAR: Not assessed/no information CODE: - ROLL LEFT AND RIGHT: Not assessed/no information CODE: - SIT TO LYING: Not assessed/no information CODE: - LYING TO SITTING: LYING TO SITTING ON SIDE OF BED - STEP 1: Does the patient complete the activity by him/herself with no assistance (physical, verbal/nonverbal cueing, setup/clean-up)? No. LYING TO SITTING ON SIDE OF BED - STEP 2: Does the patient need only setup/clean-up assistance from one helper? No. LYING TO SITTING ON SIDE OF BED - STEP 3: Does the patient need only verbal/nonverbal cueing or touching/steadying/contact guard assistance fro m one helper? Yes. 1. [id number] ADMISSION PERFORMANCE: Supervision or touching assistance CODE: 04 SIT TO STAND: SIT TO STAND - STEP 1: Does the patient complete the activity by him/herself with no assistance (physical, verbal/nonverbal cueing, setup/clean-up)? No. SIT TO STAND - STEP 2: Does the patient need only setup/clean-up assistance from one helper? No. SIT TO STAND - STEP 3: Does the patient need only verbal/nonverbal cueing or touching/steadying/contact guard assistance fro m one helper? Yes. 1. [id number] ADMISSION PERFORMANCE: Supervision or touching assistance CODE: 04 TRANSFERS: BED, CHAIR: CHAIR/[id number] TRANSFER - STEP 1: Does the patient complete the activity by him/herself with no assistance (physical, verbal/nonverbal cueing, setup/clean-up)? No. CHAIR/[id number]-HEUIE TRANSFER - STEP 2: Does the patient need only setup/clean-up assistance from one helper? No. CHAIR/NTW-[id number]-[id number] TRANSFER - STEP 3: Does the patient need only verbal/nonverbal cueing or touching/steadying/contact guard assistance fro m one helper? Yes. 1. [id number] ADMISSION PERFORMANCE: Supervision or touching assistance CODE: 04 TRANSFER TOILET: TOILET TRANSFER - STEP 1: Does the patient complete the activity by him/herself with no assistance (physical, verbal/nonverbal cueing, setup/clean-up)? No. TOILET TRANSFER - STEP 2: Does the patient need only setup/clean-up assistance from one helper? No. TOILET TRANSFER - STEP 3: Does the patient need only verbal/nonverbal cueing or touching/steadying/contact guard assistance fro m one helper? Yes. 1. [id number] ADMISSION PERFORMANCE: Supervision or touching assistance CODE: 04 TRANSFERS: CAR: Not assessed/no information CODE: - WALK 10 FEET: Not assessed/no information CODE: - 1 STEP (CURB): Not assessed/no information CODE: - PICKING UP OBJECT: Not assessed/no information CODE: - DOES THE PATIENT USE A WHEELCHAIR/SCOOTER? CODE: EXPR WHEEL 50 FEET WITH TWO TURNS: Not assessed/no information CODE: - INDICATE THE TYPE OF WHEELCHAIR/SCOOTER USED: CODE: EXPR WHEEL 150 FEET: Not assessed/no information CODE: - INDICATE THE TYPE OF WHEELCHAIR/SCOOTER USED: CODE: EXPR BLADDER AND BOWEL: H350. BLADDER CONTINENCE (3-DAY ASSESSMENT PERIOD): Always continent (no documented incontinence) CODE: 0 H400. BOWEL CONTINENCE (3-DAY ASSESSMENT PERIOD): Always continent CODE: 0 SIGNATURE PANEL: The following modified sections: 1. [id number] Admission Performance, 1. RA2534Z Admission Performance, 1. LR6117Q Admission Performance, 1. XD6609T Admission Performance, 1. [id number] Admission Performance, 1. JV5946I Admission Performance, 1. ZV5602Y Admission Performance, Code, H350. Bladder Continence ( 3-day assessment period), H350. Bladder Continence (3-day assessment period), H400. Bowel Continence (3-day assessment period) were [electronically] signed by Kieran Reyes on TueJun 25 2019 09:47:21 GMT- 0600 (Central Standard Time)
--- NOTE | 2019-06-25 16:18 | FAST ---
ENCOUNTER DATE AND TIME: 06/25/2019 08:00 (PATIENT CARE DIRECTOR) NAME IVETT FITZPATRICK DATE OF : 1945 DATE OF ADMISSION: 06/13/2019 16:44 (PATIENT CARE DIRECTOR) PHONE: AGE: 73 N# [id number] GENDER: Female ENCOUNTER PHYSICIAN: Dr. Ian Dc M.D. ADMISSION DIAGNOSIS: - Medically Complex Conditions 17 - Circulatory Disorders (17.4) Peripheral Artery Disease. EATING: Not assessed/no information CODE: - ORAL HYGIENE: ORAL HYGIENE - STEP 1: Does the patient complete the activity by him/herself with no assistance (physical, verbal/nonverbal cueing, setup/clean-up)? Yes. 1. [id number] ADMISSION PERFORMANCE: Independent CODE: 06 TOILETING HYGIENE: Not assessed/no information CODE: - BATHING: SHOWER/BATHE SELF - STEP 1: Does the patient complete the activity by him/herself with no assistance (physical, verbal/nonverbal cueing, setup/clean-up)? No. SHOWER/BATHE SELF - STEP 2: Does the patient need only setup/clean-up assistance from one helper? No. SHOWER/BATHE SELF - STEP 3: Does the patient need only verbal/nonverbal cueing or touching/steadying/contact guard assistance fro m one helper? Yes. 1. [id number] ADMISSION PERFORMANCE: Supervision or touching assistance CODE: 04 DRESSING - UPPER BODY: DRESSING - UPPER BODY - STEP 1: Does the patient complete the activity by him/herself with no assistance (physical, verbal/nonverbal cueing, setup/clean-up)? No. DRESSING - UPPER BODY - STEP 2: Does the patient need only setup/clean-up assistance from one helper? No. DRESSING - UPPER BODY - STEP 3: Does the patient need only verbal/nonverbal cueing or touching/steadying/contact guard assistance fro m one helper? Yes. 1. [id number] ADMISSION PERFORMANCE: Supervision or touching assistance CODE: 04 DRESSING - LOWER BODY: DRESSING - LOWER BODY - STEP 1: Does the patient complete the activity by him/herself with no assistance (physical, verbal/nonverbal cueing, setup/clean-up)? No. DRESSING - LOWER BODY - STEP 2: Does the patient need only setup/clean-up assistance from one helper? No. DRESSING - LOWER BODY - STEP 3: Does the patient need only verbal/nonverbal cueing or touching/steadying/contact guard assistance fro m one helper? Yes. 1. [id number] ADMISSION PERFORMANCE: Supervision or touching assistance CODE: 04 PUTTING ON/TAKING OFF FOOTWEAR: FOOTWEAR - STEP 1: Does the patient complete the activity by him/herself with no assistance (physical, verbal/nonverbal cueing, setup/clean-up)? No. FOOTWEAR - STEP 2: Does the patient need only setup/clean-up assistance from one helper? No. FOOTWEAR - STEP 3: Does the patient need only verbal/nonverbal cueing or touching/steadying/contact guard assistance fro m one helper? Yes. 1. [id number] ADMISSION PERFORMANCE: Supervision or touching assistance CODE: 04 DOES THE PATIENT USE A WHEELCHAIR/SCOOTER? CODE: EXPR INDICATE THE TYPE OF WHEELCHAIR/SCOOTER USED: CODE: EXPR INDICATE THE TYPE OF WHEELCHAIR/SCOOTER USED: CODE: EXPR BLADDER AND BOWEL: CODE: EXPR CODE: EXPR SIGNATURE PANEL: The following modified sections: 1. OC5570A Admission Performance, 1. JD1366u Admission Performance, 1. SQ1538l Admission Performance, 1. YU7510g Admission Performance, 1. HD1177o Admission Performance, 1. SV3498x Admission Performance were [electronically] signed by CEFERINO Sumner on TueJun 25 2019 16:17:17 GMT-0600 (Central Standard Time)
[2019-06-25] MEDS: RIVAROXABAN 20 MG TABLET PO SCH (17:20)
--- NOTE | 2019-06-25 18:19 | R.PN ---
ENCOUNTER DATE AND TIME: 06/25/2019 18:14 (BILL RECAPITULATION CLERK) NAME IVETT FITZPATRICK DATE OF : 1945 DATE OF ADMISSION: 06/13/2019 16:44 (BILL RECAPITULATION CLERK) Peripheral Artery DiseaseCHIEF COMPLAINT: Debility and peripheral arterial disease SUBJECTIVE: Pt denied any depression. Pt denied any Shortness of Breath. She ambulated 500' with standby assistance. Up and down 5 steps with bilateral handrails with partial assistance. Her cough has improved significantly after taking antibiotics. Glucose 79 to 167. [id number] show m ild lung infiltrate. She is on nebulizers, incentive spirometry, tesselon perle and robitussin. Self propelled wheelchair 250' with moderate assistance. VITAL SIGNS Temperature: 97.0 F SBP/DBP: 143/65 Pulse: 68 Resp: 16 MEDICATION ALLERGIES: CIPROFLOXACIN Erythromycin Losartan MACROLIDE Penicillin PENTOXIFYLLINE ENVIRONMENTAL ALLERGIES: None Known - Substance Allergies None Known - Other Allergies None Known NURSING: - Shower allowing shower - Lab Results blood Sugar Check ACHS ACTIVITIES OOB only with supervision THERAPIES: - Dietary and Nutrition Adequate Nutrition. Nutritional Education. Nutritional Supplements. PHYSICAL EXAM - Gen Alert and awake Lying in bed No apparent distress Oriented to: person, time, and place - Skin No skin breakdown. Normacephalic - Eyes No abnormalities - ENMT No abnormalities - Neck No abnormalities - CVS RRR - Chest No abnormalities - Resp Clear to auscultation - Abd Soft - GI Non distended Deferred - No abnormalities - Ext Mild bilateral lower extremity edema. - MSK 4+/5 weakness in both lower extremities. - Neuro No focal deficits - Psych No abnormalities ASSESSMENT: Pt. is a 73 yo Right-handed white female.On 06/09/2019 she was admitted to [facility] with diagnosis Peripheral Artery Disease.Her impairment category is Medically Complex Conditio ns 17 - Circulatory Disorders (17.4).Pre-morbidly, Pt. was independent/mod-I in Locomotion, Safety A wareness, Balance, Social Cognition, Transfers Control, Sphincter Control, Self-Care, Communication, and Endurance; and she had good Locomotion, Safety Awareness, Social Cognition, Balance, Transfers Co ntrol, Sphincter Control, Self-Care, and Communication.Currently, she has deficits of Locomotion, Saf ety Awareness, Balance, Social Cognition, Transfers Control, Sphincter Control, Self-Care, Communicat ion, and Endurance.Pt. is now referred to [facility] for acute in-patient reha bilitation in order to maximize patient's functional independence in activities of daily living, stre ngth, ROM, and mobility.- Rehab Goal Patient has realistic goal of being discharged at assistance level 6-Pop to reside at Home with Fam poppy/Relatives. MDM/PLAN: - Physical Therapy Gait dysfunction - to improve, our physical therapists will perform initial evaluation of pt's statu s upon admission and devise an individualized program for Gait Training, and Wheel Chair mobility Inability to transfer - to improve, our physical therapists will perform initial evaluation of pt's status upon admission and devise an individualized program for Bed mobility Need for home safety evaluation - to improve, our physical therapists will perform initial evaluatio n of pt's status upon admission and devise an individualized program for Home Evaluation Need in caregiver upon discharge - to improve, our physical therapists will perform initial evaluati on of pt's status upon admission and devise an individualized program for Caregiver Training Edema - to improve, our physical therapists will perform initial evaluation of pt's status upon admi ssion and devise an individualized program for Elevation Training, and Lymphedema Therapy New precaution - to improve, our physical therapists will perform initial evaluation of pt's status upon admission and devise an individualized program for Patient precaution education Poor balance - to improve, our physical therapists will perform initial evaluation of pt's status up on admission and devise an individualized program for Balance Training Poor endurance - to improve, our physical therapists will perform initial evaluation of pt's status upon admission and devise an individualized program for Endurance Training Weakness - to improve, our physical therapists will perform initial evaluation of pt's status upon a dmission and devise an individualized program for Aquatic Therapy, Neuromuscular Reeducation, and Str engthening Achieving independence - to improve, our physical therapists will perform initial evaluation of pt's status upon admission and devise an individualized program for Community Reintegration Activities - Occupational Therapy ADL deficits - to improve, our occupation therapists will perform initial evaluation of pt's status upon admission and devise an individualized program for Bathing, Bed mobility, Community Reintegratio n, Cooking, Dressing, Eating, Fine Motor Skills, Grooming, Homemaking, Kitchen Mobility, Laundry, Pat ient Education, Safety Awareness, Splinting - Positioning, Transfers(Toilet, Tub, Shower), and Wheel Chair Management Cognitive deficits - to improve, our occupation therapists will perform initial evaluation of pt's s tatus upon admission and devise an individualized program for Cognition - orientation Need for director of healthcare systems - to improve, our occupation therapists will perform initial evaluation of pt's status upon admission and devise an individualized program for Caregiver Training Weakness - to improve, our occupation therapists will perform initial evaluation of pt's status upon admission and devise an individualized program for Aquatic Therapy, Balance, Endurance, UE ROM, and UE strengthening - Other See attached MAR (Medication Administration Record) - Diet Type Continue Regular - Diet - Liquid Texture Continue Regular - Tube Feed Continue N/A - Lab Results blood Sugar Check ACHS - Diet - Solid Texture Continue Regular - Shower allowing shower FUNCTIONAL STATUS: UPDATED AT WEEKLY TEAM CONFERENCE - Bladder Same accident frequency: 7-Ind - No accidents in the past 7 days - Bowel Same accident frequency: 7-Ind - No accidents in the past 7 days - Walking Same score based on distance walked: 0(N/A) Same score based on distance walked: 1(<=50ft) - Wheelchair Same score based on distance traveled: 0(N/A) FUNCTIONAL STATUS: - Self-Care A. Eating Ind B. Grooming Ind C. Bathing sup D. Dressing - Upper sup E. Dressing - Lower sup F. Toileting sup - Sphincter Control G. Bladder control sup H. Bowel control sup - Transfers Control I. Bed/Chair/Wheelchair Pop J. Toilet sup K. Tub/Shower sup - Locomotion L. Walk/Wheelchair (B) Pop M. Stairs Pop - Communication N. Comprehension (B) Pop O. Expression (B) Pop - Social Cognition P. Social Interaction Ind Q. Problem Solving Ind R. Memory Pop - Endurance Good - Balance Good - Safety Awareness Good QI SCORES: - Self-Care A. Eating 05-Setup or clean-up assistance B. Oral hygiene 05-Setup or clean-up assistance C. Toileting hygiene 02-Substantial/maximal assistance E. Shower/bathe self 03-Partial/moderate assistance F. Upper body dressing 03-Partial/moderate assistance G. Lower body dressing 02-Substantial/maximal assistance H. Putting on/taking off footwear 02-Substantial/maximal assistance - Mobility A. Roll left and right 03-Partial/moderate assistance B. Sit to lying 02-Substantial/maximal assistance C. Lying to sitting on side of bed 02-Substantial/maximal assistance D. Sit to stand 02-Substantial/maximal assistance E. Chair/hlc-gt-hgovc transfer 02-Substantial/maximal assistance F. Toilet transfer 02-Substantial/maximal assistance G. Car transfer 88-Not attempted due to medical condition or safety concerns I. Walk 10 feet 03-Partial/moderate assistance J. Walk 50 feet with two turns 88-Not attempted due to medical condition or safety concerns K. Walk 150 feet 88-Not attempted due to medical condition or safety concerns L. Walking 10 feet on uneven surfaces 88-Not attempted due to medical condition or safety concerns M. 1 step (curb) 88-Not attempted due to medical condition or safety concerns N. 4 steps 88-Not attempted due to medical condition or safety concerns O. 12 steps 88-Not attempted due to medical condition or safety concerns P. Picking up object 88-Not attempted due to medical condition or safety concerns R. Wheel 50 feet with two turns 88-Not attempted due to medical condition or safety concerns S. Wheel 150 feet 88-Not attempted due to medical condition or safety concerns - Bladder and Bowel Bladder continence 0-Always continent Bowel continence 0-Always continent - Endurance Poor - Balance Fair - Safety Awareness Fair CURRENT FUNC. DEFICITS: Self-Care, Mobility, Endurance, Balance, and Safety Awareness SIGNATURE PANEL: (BILL RECAPITULATION CLERK)
[2019-06-25] MEDS: ATORVASTATIN 10 MG TAB PO SCH (20:09)
[2019-06-25] MEDS: DOCUSATE NA/SENNA CONC 1 TAB PO PRN (20:09)
[2019-06-25] MEDS: MONTELUKAST 10 MG TAB PO SCH (20:10)
[2019-06-26] MEDS: PANTOPRAZOLE 40MG TABLET PO SCH (06:58)
[2019-06-26] MEDS: LEVOTHYROXINE SOD 0.025 MG TAB PO SCH (06:58)
[2019-06-26] MEDS: INSULIN -REGULAR HUMAN 50 UNIT/0.5 ML ML SQ SCH ×4 (07:30→19:25)
[2019-06-26] MEDS: SMZ./TMP. 800/160 MG TABLET PO SCH ×2 (08:00→19:11)
[2019-06-26] MEDS: FERROUS SULFATE 325 MG TAB PO SCH (08:00)
[2019-06-26] MEDS: METOPROLOL XL 25 MG TAB PO SCH ×2 (08:00→19:10)
[2019-06-26] MEDS: POTASSIUM CL SA 10 MEQ TAB PO SCH ×2 (08:00→19:11)
[2019-06-26] MEDS: ACETIC ACID 0.25% IRRIG IRR SCH (08:00)
[2019-06-26] MEDS: FE SULF/FA/VIT B COMP & C TAB PO SCH (08:00)
[2019-06-26] MEDS: SPIRONOLACTONE 25 MG TABLET PO SCH ×2 (08:00→19:10)
[2019-06-26] MEDS: predniSONE 10 MG TAB PO SCH (08:00)
[2019-06-26] MEDS: PREGABALIN 150 MG CAP PO SCH ×2 (08:00→19:10)
[2019-06-26] MEDS: GLIMEPIRIDE 2 MG TABLET PO SCH ×2 (08:00→17:06)
[2019-06-26] MEDS: PRAMIPEXOLE 0.25 MG TAB PO SCH ×2 (08:00→19:11)
[2019-06-26] MEDS: PROMOD 30 ML DOSE PO SCH ×2 (08:00→19:12)
[2019-06-26] MEDS: ASPIRIN 81 MG CHEWABLE TABLET PO SCH (08:00)
[2019-06-26] MEDS: GUAIFENESIN 600 MG SA TAB PO SCH ×2 (08:00→19:11)
[2019-06-26] MEDS: CLINDAMYCIN HCL 150 MG CAP PO SCH ×3 (09:00→19:09)
[2019-06-26] MEDS: FUROSEMIDE 20 MG TABLET PO SCH ×2 (09:00→17:06)
[2019-06-26] MEDS: MIDODRINE HCL 5 MG TABLET PO SCH ×3 (09:00→19:10)
[2019-06-26] MEDS ORDERED: MIDODRINE HCL 5 MG TABLET ONE (15:25)
[2019-06-26] MEDS: RIVAROXABAN 20 MG TABLET PO SCH (17:06)
[2019-06-26] MEDS: ATORVASTATIN 10 MG TAB PO SCH (19:10)
[2019-06-26] MEDS: TRAMADOL HCL 50 MG TAB PO PRN (19:10)
[2019-06-26] MEDS: MONTELUKAST 10 MG TAB PO SCH (19:11)
[2019-06-26] MEDS: DOCUSATE NA/SENNA CONC 1 TAB PO PRN (19:11)
[2019-06-26] MEDS: DIPHENHYDRAMINE 12.5MG/5ML LIQ PO PRN (19:36)
[2019-06-27] MEDS: PANTOPRAZOLE 40MG TABLET PO SCH (07:14)
[2019-06-27] MEDS: LEVOTHYROXINE SOD 0.025 MG TAB PO SCH (07:14)
[2019-06-27] MEDS: INSULIN -REGULAR HUMAN 50 UNIT/0.5 ML ML SQ SCH ×4 (07:28→21:39)
[2019-06-27] MEDS: ACETIC ACID 0.25% IRRIG IRR SCH (08:00)
[2019-06-27] MEDS: SPIRONOLACTONE 25 MG TABLET PO SCH ×2 (08:00→19:49)
[2019-06-27] MEDS: PREGABALIN 150 MG CAP PO SCH ×2 (08:18→19:47)
[2019-06-27] MEDS: GUAIFENESIN 600 MG SA TAB PO SCH ×2 (08:19→19:47)
[2019-06-27] MEDS: GLIMEPIRIDE 2 MG TABLET PO SCH ×2 (08:19→17:10)
[2019-06-27] MEDS: FE SULF/FA/VIT B COMP & C TAB PO SCH (08:19)
[2019-06-27] MEDS: POTASSIUM CL SA 10 MEQ TAB PO SCH ×2 (08:20→19:47)
[2019-06-27] MEDS: predniSONE 10 MG TAB PO SCH (08:20)
[2019-06-27] MEDS: MIDODRINE HCL 5 MG TABLET PO SCH ×3 (08:20→21:36)
[2019-06-27] MEDS: FERROUS SULFATE 325 MG TAB PO SCH (08:21)
[2019-06-27] MEDS: PRAMIPEXOLE 0.25 MG TAB PO SCH ×2 (08:21→21:35)
[2019-06-27] MEDS: ASPIRIN 81 MG CHEWABLE TABLET PO SCH (08:21)
[2019-06-27] MEDS: FUROSEMIDE 20 MG TABLET PO SCH ×2 (08:22→14:45)
[2019-06-27] MEDS: CLINDAMYCIN HCL 150 MG CAP PO SCH ×3 (08:22→21:35)
[2019-06-27] MEDS: PROMOD 30 ML DOSE PO SCH ×2 (08:25→19:49)
[2019-06-27] MEDS: METOPROLOL XL 25 MG TAB PO SCH ×2 (10:44→19:48)
[2019-06-27] MEDS: RIVAROXABAN 20 MG TABLET PO SCH (17:10)
[2019-06-27] MEDS: MONTELUKAST 10 MG TAB PO SCH (21:35)
[2019-06-27] MEDS: ATORVASTATIN 10 MG TAB PO SCH (21:36)
[2019-06-28 06:22] LABS: Absolute Lymphocytes (CBC) 2.3 K/uL (0.7-4.9); Basophils % 1.9 % (0-1.3); Hematocrit 32.7 % (36.0-45.0); Lymphocytes % 22.7 % (15.3-44.8); MPV 9.3 fL (7.6-11.3); RBC Red Blood Cell Count 4.11 M/uL (3.86-4.86)
[2019-06-28] MEDS: LEVOTHYROXINE SOD 0.025 MG TAB PO SCH (06:29)
[2019-06-28] MEDS: PANTOPRAZOLE 40MG TABLET PO SCH (06:29)
[2019-06-28 06:46] LABS: Albumin 3.6 g/dL (3.4-5.0); Magnesium 2.3 mg/dL (1.8-2.4); Potassium 4.3 mmol/L (3.5-5.1); Prealbumin 23.4 mg/dL (20-40)
[2019-06-28 07:06] VITALS: BP 120/57; TEMP 97.5
[2019-06-28] MEDS: INSULIN -REGULAR HUMAN 50 UNIT/0.5 ML ML SQ SCH ×2 (07:30→11:30)
[2019-06-28] MEDS: PROMOD 30 ML DOSE PO SCH (08:00)
[2019-06-28] MEDS: ACETIC ACID 0.25% IRRIG IRR SCH (08:00)
[2019-06-28] MEDS: GLIMEPIRIDE 2 MG TABLET PO SCH (08:30)
[2019-06-28] MEDS: FE SULF/FA/VIT B COMP & C TAB PO SCH (08:30)
[2019-06-28] MEDS: POTASSIUM CL SA 10 MEQ TAB PO SCH (08:31)
[2019-06-28] MEDS: GUAIFENESIN 600 MG SA TAB PO SCH (08:31)
[2019-06-28] MEDS: FERROUS SULFATE 325 MG TAB PO SCH (08:31)
[2019-06-28] MEDS: FUROSEMIDE 20 MG TABLET PO SCH (08:32)
[2019-06-28] MEDS: MIDODRINE HCL 5 MG TABLET PO SCH ×2 (08:32→13:21)
[2019-06-28] MEDS: PRAMIPEXOLE 0.25 MG TAB PO SCH (08:32)
[2019-06-28] MEDS: METOPROLOL XL 25 MG TAB PO SCH (08:32)
[2019-06-28] MEDS: ASPIRIN 81 MG CHEWABLE TABLET PO SCH (08:33)
[2019-06-28] MEDS: predniSONE 10 MG TAB PO SCH (08:33)
[2019-06-28] MEDS: PREGABALIN 150 MG CAP PO SCH (09:56)
[2019-06-28] MEDS: SPIRONOLACTONE 25 MG TABLET PO SCH (09:56)
[2019-06-28] MEDS: CLINDAMYCIN HCL 150 MG CAP PO SCH ×2 (09:56→13:21)
[2019-06-28 11:47] VITALS: O2SAT 98
--- NOTE | 2019-06-28 16:06 | FAST ---
SHIFT START DATE/TIME: 06/28/2019 07:00 (PROFESSOR/NURSE ANESTHETIST) SHIFT END DATE/TIME: 06/28/2019 19:00 (PROFESSOR/NURSE ANESTHETIST) NAME IVETT FITZPATRICK DATE OF : 1945 DATE OF ADMISSION: 06/13/2019 16:44 (PROFESSOR/NURSE ANESTHETIST) PHONE: AGE: 73 N# [id number] GENDER: Female ENCOUNTER PHYSICIAN: Dr. Ian Dc M.D. ADMISSION DIAGNOSIS: - Medically Complex Conditions 17 - Circulatory Disorders (17.4) Peripheral Artery Disease. EATING: EATING - STEP 1: Does the patient complete the activity by him/herself with no assistance (physical, verbal/nonverbal cueing, setup/clean-up)? No. EATING - STEP 2: Does the patient need only setup/clean-up assistance from one helper? Yes. 1. [id number] ADMISSION PERFORMANCE: Setup or clean-up assistance CODE: 05 ORAL HYGIENE: ORAL HYGIENE - STEP 1: Does the patient complete the activity by him/herself with no assistance (physical, verbal/nonverbal cueing, setup/clean-up)? Yes. 1. [id number] ADMISSION PERFORMANCE: Independent CODE: 06 TOILETING HYGIENE: TOILETING HYGIENE - STEP 1: Does the patient complete the activity by him/herself with no assistance (physical, verbal/nonverbal cueing, setup/clean-up)? Yes. 1. [id number] ADMISSION PERFORMANCE: Independent CODE: 06 BATHING: Not assessed/no information CODE: - DRESSING - UPPER BODY: DRESSING - UPPER BODY - STEP 1: Does the patient complete the activity by him/herself with no assistance (physical, verbal/nonverbal cueing, setup/clean-up)? Yes. 1. [id number] ADMISSION PERFORMANCE: Independent CODE: 06 DRESSING - LOWER BODY: DRESSING - LOWER BODY - STEP 1: Does the patient complete the activity by him/herself with no assistance (physical, verbal/nonverbal cueing, setup/clean-up)? Yes. 1. [id number] ADMISSION PERFORMANCE: Independent CODE: 06 PUTTING ON/TAKING OFF FOOTWEAR: FOOTWEAR - STEP 1: Does the patient complete the activity by him/herself with no assistance (physical, verbal/nonverbal cueing, setup/clean-up)? Yes. 1. [id number] ADMISSION PERFORMANCE: Independent CODE: 06 ROLL LEFT AND RIGHT: ROLL LEFT AND RIGHT - STEP 1: Does the patient complete the activity by him/herself with no assistance (physical, verbal/nonverbal cueing, setup/clean-up)? Yes. 1. [id number] ADMISSION PERFORMANCE: Independent CODE: 06 SIT TO LYING: SIT TO LYING - STEP 1: Does the patient complete the activity by him/herself with no assistance (physical, verbal/nonverbal cueing, setup/clean-up)? Yes. 1. [id number] ADMISSION PERFORMANCE: Independent CODE: 06 LYING TO SITTING: LYING TO SITTING ON SIDE OF BED - STEP 1: Does the patient complete the activity by him/herself with no assistance (physical, verbal/nonverbal cueing, setup/clean-up)? Yes. 1. [id number] ADMISSION PERFORMANCE: Independent CODE: 06 SIT TO STAND: SIT TO STAND - STEP 1: Does the patient complete the activity by him/herself with no assistance (physical, verbal/nonverbal cueing, setup/clean-up)? Yes. 1. [id number] ADMISSION PERFORMANCE: Independent CODE: 06 TRANSFERS: BED, CHAIR: CHAIR/[id number]-DRRKR TRANSFER - STEP 1: Does the patient complete the activity by him/herself with no assistance (physical, verbal/nonverbal cueing, setup/clean-up)? Yes. 1. [id number] ADMISSION PERFORMANCE: Independent CODE: 06 TRANSFER TOILET: TOILET TRANSFER - STEP 1: Does the patient complete the activity by him/herself with no assistance (physical, verbal/nonverbal cueing, setup/clean-up)? Yes. 1. [id number] ADMISSION PERFORMANCE: Independent CODE: 06 TRANSFERS: CAR: CAR TRANSFER - STEP 1: Does the patient complete the activity by him/herself with no assistance (physical, verbal/nonverbal cueing, setup/clean-up)? No. CAR TRANSFER - STEP 2: Does the patient need only setup/clean-up assistance from one helper? Yes. 1. [id number] ADMISSION PERFORMANCE: Setup or clean-up assistance CODE: 05 WALK 10 FEET: WALK 10 FEET - STEP 1: Does the patient complete the activity by him/herself with no assistance (physical, verbal/nonverbal cueing, setup/clean-up)? No. WALK 10 FEET - STEP 2: Does the patient need only setup/clean-up assistance from one helper? Yes. 1. [id number] ADMISSION PERFORMANCE: Setup or clean-up assistance CODE: 05 WALK 50 FEET: WALK 50 FEET - STEP 1: Does the patient complete the activity by him/herself with no assistance (physical, verbal/nonverbal cueing, setup/clean-up)? No. WALK 50 FEET - STEP 2: Does the patient need only setup/clean-up assistance from one helper? Yes. 1. [id number] ADMISSION PERFORMANCE: Setup or clean-up assistance CODE: 05 WALK 150 FEET: WALK 150 FEET - STEP 1: Does the patient complete the activity by him/herself with no assistance (physical, verbal/nonverbal cueing, setup/clean-up)? No. WALK 150 FEET - STEP 2: Does the patient need only setup/clean-up assistance from one helper? Yes. 1. [id number] ADMISSION PERFORMANCE: Setup or clean-up assistance CODE: 05 WALK 10 FEET UNEVEN: Not assessed/no information CODE: - 1 STEP (CURB): Not assessed/no information CODE: - PICKING UP OBJECT: Not assessed/no information CODE: - DOES THE PATIENT USE A WHEELCHAIR/SCOOTER? Q1. DOES THE PATIENT USE A WHEELCHAIR/SCOOTER?: Yes CODE: 1 WHEEL 50 FEET WITH TWO TURNS: WHEEL 50 FEET WITH TWO TURNS - STEP 1: Does the patient complete the activity by him/herself with no assistance (physical, verbal/nonverbal cueing, setup/clean-up)? Yes. 1. [id number] ADMISSION PERFORMANCE: Independent CODE: 06 INDICATE THE TYPE OF WHEELCHAIR/SCOOTER USED: RR1. INDICATE THE TYPE OF WHEELCHAIR/SCOOTER USED.: Manual CODE: 1 WHEEL 150 FEET: WHEEL 150 FEET - STEP 1: Does the patient complete the activity by him/herself with no assistance (physical, verbal/nonverbal cueing, setup/clean-up)? Yes. 1. [id number] ADMISSION PERFORMANCE: Independent CODE: 06 INDICATE THE TYPE OF WHEELCHAIR/SCOOTER USED: SS1. INDICATE THE TYPE OF WHEELCHAIR/SCOOTER USED.: Manual CODE: 1 BLADDER AND BOWEL: H350. BLADDER CONTINENCE (3-DAY ASSESSMENT PERIOD): Always continent (no documented incontinence) CODE: 0 H400. BOWEL CONTINENCE (3-DAY ASSESSMENT PERIOD): Always continent CODE: 0 SIGNATURE PANEL: The following modified sections: 1. [id number] Admission Performance, 1. [id number] Admission Performance, 1. [id number] Admission Performance, 1. ST5023h Admission Performance, 1. DG7043p Admission Performance, 1. KL9233r Admission Performance, 1. IX9340S Admission Performance, 1. [id number] Admission Performance , 1. HT1691E Admission Performance, 1. [id number] Admission Performance, 1. [id number] Admission Performanc e, 1. [id number] Admission Performance, 1. NZ2785B Admission Performance, 1. HA1612A Admission Performan ce, 1. XP0875V Admission Performance, 1. SN6813Z Admission Performance, 1. [id number] Admission Performa nce, Q1. Does the patient use a wheelchair/scooter?, 1. [id number] Admission Performance, RR1. Indicate the type of wheelchair/scooter used., 1. [id number] Admission Performance, Code, SS1. Indicate the type of wheelchair/scooter used., H350. Bladder Continence (3-day assessment period), H400. Bowel Continen ce (3-day assessment period) were [electronically] signed by Tianna Sandoval C.N.A. on TueJun 28 2019 16:05:56 GMT-0600 (Central Standard Time)
== END 2019-06-28 14:30 | DRG 299 ==
LOC: 5TH 16:44
PROVIDERS: ADMIT Psychiatry & Neurology Neurology with Special Qualifications in Child Neurology; ATTEND Psychiatry & Neurology Neurology with Special Qualifications in Child Neurology
DX: I73.9 Peripheral vascular disease, unspecified (principal); J18.9 Pneumonia, unspecified organism; L03.116 Cellulitis of left lower limb; L03.115 Cellulitis of right lower limb; R53.81 Other malaise; E11.40 Type 2 diabetes mellitus with diabetic neuropathy, unspecified; H40.9 Unspecified glaucoma; I10 Essential (primary) hypertension; E78.5 Hyperlipidemia, unspecified; E03.9 Hypothyroidism, unspecified; I48.91 Unspecified atrial fibrillation
CPT/HCPCS: 36415; 71045; 80048; 82040; 82947; 83735; 84134; 85025; 87015; 87070; 87077; 87116; 87186; 87205; 87206; 94640; 97110; 97116; 97161; 97530; 97542; J7512

== ENCOUNTER 2019-08-31 14:01 | Inpatient (IN) | payer OTHER ==
[2019-08-31] MEDS ORDERED: NA CHLORIDE 0.9% 500 ML ONE (15:11)
[2019-08-31 15:13] LABS: Protime INR 1.05
[2019-08-31 15:25] LABS: Absolute Lymphocytes (CBC) 1.7 K/uL (0.7-4.9); Basophils % 0.6 % (0-1.3); Hematocrit 39.7 % (36.0-45.0); Lymphocytes % 16.4 % (15.3-44.8); MPV 8.9 fL (7.6-11.3); RBC Red Blood Cell Count 5.09 M/uL (3.86-4.86)
[2019-08-31 15:25] LABS: ALT/SGPT 18 U/L (12-78); AST/SGOT 16 U/L (15-37); Albumin 3.3 g/dL (3.4-5.0); Alkaline Phosphatase 52 U/L (45-117); BUN Blood Urea Nitrogen 22 mg/dL (7-18); Bicarbonate 34 mmol/L (21-32); Bilirubin Direct 0.2 mg/dL (0-0.2); Bilirubin Total 0.5 mg/dL (0.2-1.0); Glucose Level 226 mg/dL (74-106); Potassium 3.2 mmol/L (3.5-5.1); Protein, Total 7.7 g/dL (6.4-8.2); Sodium Level 136 mmol/L (136-145)
[2019-08-31 15:26] LABS: Magnesium 2.1 mg/dL (1.8-2.4); NT PRO-BNP 278 pg/mL (<125); Troponin (Emerg Dept Use Only) < 0.02 ng/mL (0.0-0.045)
--- NOTE | 2019-08-31 15:30 | RAD REPORT ---
EXAM DESCRIPTION: RAD - Chest Single View - 08/31/2019 3:04 pm CLINICAL HISTORY: cough, sob Chest pain. COMPARISON: Chest Single View dated 06/17/2019; Chest Single View dated 06/16/2019; Chest Single Vie w dated 06/09/2019; Chest Single View dated 03/17/2019 FINDINGS: Portable technique limits examination quality. The lungs are grossly clear. The heart is normal in size. No displaced fractures.Hardware is present the cervical spine. IMPRESSION: No acute intrathoracic process suspected.
--- NOTE | 2019-08-31 16:29 | ER ---
Nurse's Notes [facility] Name: Stephany Bran Age: 73 yrs Sex: Female : 1945 Arrival Date: 08/31/2019 Time: 14:16 Bed 27 Private MD: Diagnosis: Dehydration;Tachycardia, unspecified;Hyperglycemia, unspecified;Hypokalemia Presentation: 08/31 14:10 Chief complaint: EMS states: she is here for high blood sugar. BGL- 309 mg/dl. she had mg2 traziva and novalog this morning. now she is feeling nauseated, headache and dizzy. Coronavirus screen: The patient has NOT traveled to [place] in the past 14 days. Ebola Screen: No symptoms or risks identified at this time. Initial Sepsis Screen: Does the patient meet any 2 criteria? No. Patient's initial sepsis screen is negative. Does the patient have a suspected source of infection? No. Patient's initial sepsis screen is negative. Risk Assessment: Do you want to hurt yourself or someone else? Patient reports no desire to harm self or others. 14:10 Method Of Arrival: EMS: [facility] mg2 14:10 Acuity: NGA 3 mg2 16:08 Onset of symptoms was August 31, 2019. mg2 Historical: - Allergies: 14:23 Ciprofloxacin; mg2 14:23 Demerol; mg2 14:23 Losartan; mg2 14:23 MACROLIDES; mg2 14:23 METRONIDAZOLE; mg2 14:23 PENICILLINS; mg2 14:23 pentoxifylline; mg2 14:23 Erythromycin; mg2 - PMHx: 14:23 Bronchitis; Diabetes - NIDDM; Hyperlipidemia; Hypertension; Hypothyroidism; mg2 - PSHx: 14:23 Hysterectomy; Tonsillectomy; mg2 - Immunization history:: Flu vaccine status is unknown. - Social history:: Smoking status: unknown. Screenin:08 Abuse screen: Denies threats or abuse. Denies injuries from another. Nutritional mg2 screening: No deficits noted. Tuberculosis screening: No symptoms or risk factors identified. Fall Risk IV access (20 points). Assessment: 15:30 General: Appears in no apparent distress. comfortable, Behavior is calm, cooperative. mg2 Pain: Complains of pain in head. Neuro: Level of Consciousness is awake, alert, obeys commands, Oriented to person, place, time, situation. Cardiovascular: Capillary refill < 3 seconds Patient's skin is warm and dry. Respiratory: Airway is patent Respiratory effort is even, unlabored, Respiratory pattern is regular, symmetrical. GI: Reports nausea. : No signs and/or symptoms were reported regarding the genitourinary system. EENT: No signs and/or symptoms were reported regarding the EENT system. Derm: Skin is intact, is healthy with good turgor, Skin is pink, warm \T\ dry. normal. Musculoskeletal: Circulation, motion, and sensation intact. Capillary refill < 3 seconds. 16:30 Reassessment: Patient appears in no apparent distress at this time. Patient and/or mg2 family updated on plan of care and expected duration. Pain level reassessed. Patient is alert, oriented x 3, equal unlabored respirations, skin warm/dry/pink. 17:56 Reassessment: Patient appears in no apparent distress at this time. Patient and/or mg2 family updated on plan of care and expected duration. Pain level reassessed. Patient is alert, oriented x 3, equal unlabored respirations, skin warm/dry/pink. seen by dr loaiza and advised for hospitalization. Vital Signs: 14:10 BP 128 / 72; Pulse 122; Resp 18; Temp 98.5; Pulse Ox 100% on R/A; Weight 100.24 kg; mg2 Height 5 ft. 7 in. (170.18 cm); 16:08 BP 141 / 47; Pulse 111; Resp 18; Pulse Ox 95% on R/A; mg2 17:00 BP 141 / 60; Pulse 114; Resp 18; Pulse Ox 95% on R/A; mg2 17:00 BP 121 / 46; Pulse 112; Resp 18; Pulse Ox 95% ; mg2 18:17 BP 108 / 58; Pulse 117; Resp 18; Temp 98.5; Pulse Ox 95% on R/A; mg2 14:10 Body Mass Index 34.61 (100.24 kg, 170.18 cm) mg2 ED Course: 14:16 Patient arrived in ED. mg2 14:19 Triage completed. mg2 14:19 Humble Vann PA is PHCP. [facility] 14:19 Job Hoang MD is Attending Physician. jmm 14:23 Arm band placed on. mg2 14:25 Rodo Urrutia RN is Primary Nurse. mg2 14:42 EKG done, by geodetic technician. reviewed by Job Hoang MD. at1 15:02 X-ray completed. Patient tolerated procedure well. Radiology exam delayed due to IV mh1 insertion attempt and/or patient not having appropriate IV at this time. 15:04 XRAY Chest (1 view) In Process Unspecified. EDMS 15:05 Missed attempt(s): 22 gauge in left antecubital area. Bleeding controlled, band aid dh3 applied, catheter tip intact. 15:14 Initial lab(s) drawn, by ED staff, by flower shop laborer/designer, sent to lab. First set of blood lt1 cultures drawn by lab staff. Second set of blood cultures drawn by ED staff. Inserted saline lock: 22 gauge in left antecubital area, using aseptic technique. 16:08 Patient has correct armband on for positive identification. monitoring tech on. Pulse mg2 ox on. NIBP on. Door closed. Warm blanket given. 16:09 No provider procedures requiring assistance completed. mg2 16:28 Rl Akins MD is Hospitalizing Provider. jmm 18:17 Patient admitted, IV remains in place. mg2 Administered Medications: 15:12 Drug: NS 0.9% 500 ml Route: IV; Rate: bolus; Site: left antecubital; mg2 18:18 Follow up: Response: No adverse reaction; IV Status: Completed infusion; IV Intake: mg2 500ml Intake: 18:18 IV: 500ml; Total: 500ml. mg2 Outcome: 16:28 Decision to Hospitalize by Provider. jmm 18:17 Admitted to Med/surg accompanied by tech, via wheelchair, room 229, with chart, Report mg2 called to CHRISSY Pugh 18:17 Condition: stable 18:17 Instructed on the need for admit. 18:17 Demonstrated understanding of instructions. 18:48 Patient left the ED. mg2 Signatures: Dispatcher [employer] EDMS Humble Vann PA PA Claudine Flaherty 1 Priscila Borwn, market reporter EKG Aishwarya Garcia 3 Rodo Urrutia, CHRISSY RN mg2 Cindy Haley 1 Corrections: (The following items were deleted from the chart) 17:56 16:08 Pulse 111bpm; Resp 18bpm; Pulse Ox 95% RA; mg2 mg2
--- NOTE | 2019-08-31 16:29 | EDPHYS ---
Physician Documentation [facility] Name: Stephany Bran Age: 73 yrs Sex: Female : 1945 Arrival Date: 08/31/2019 Time: 14:16 Bed 27 Private MD: ED Physician Job Hoang HPI: 08/31 14:32 This 73 yrs old Female presents to ER via EMS with complaints of cough, jmm elevated glucose, blood pressure problem. 14:32 Onset: The symptoms/episode began/occurred gradually, 1 month(s) ago. Modifying jmm factors: The symptoms are alleviated by nothing, the symptoms are aggravated by nothing. This is a 73 year old female with a history of DM, htn that presents to the ED with complaints of cough, shortness of breath ongoing since exposure to flu b 1 month prior. Patient states she has had increased difficulty controlling blood glucose. Concerned due to elevated blood glucose today. Denies fever. . Historical: - Allergies: 14:23 Ciprofloxacin; mg2 14:23 Demerol; mg2 14:23 Losartan; mg2 14:23 MACROLIDES; mg2 14:23 METRONIDAZOLE; mg2 14:23 PENICILLINS; mg2 14:23 pentoxifylline; mg2 14:23 Erythromycin; mg2 - PMHx: 14:23 Bronchitis; Diabetes - NIDDM; Hyperlipidemia; Hypertension; Hypothyroidism; mg2 - PSHx: 14:23 Hysterectomy; Tonsillectomy; mg2 - Immunization history:: Flu vaccine status is unknown. - Social history:: Smoking status: unknown. ROS: 14:32 Constitutional: Negative for fever, chills, and weight loss, Cardiovascular: Negative jmm for chest pain, palpitations, and edema. 14:32 Respiratory: Positive for cough, shortness of breath. 14:32 All other systems are negative. Exam: 14:32 Constitutional: This is a well developed, well nourished patient who is awake, alert, jmm and in no acute distress. Head/Face: atraumatic. Eyes: EOMI, no conjunctival erythema appreciated ENT: Moist Mucus Membranes Neck: Trachea midline, Supple Chest/axilla: Normal chest wall appearance and motion. 14:32 Abdomen/GI: Non distended, soft Back: Normal ROM Skin: General appearance color normal MS/ Extremity: Moves all extremities, no obvious deformities appreciated, no edema noted to the lower extremities Neuro: Awake and alert, normal gait Psych: Behavior is normal, Mood is normal, Patient is cooperative and pleasant 14:32 Cardiovascular: Rate: normal, Rhythm: regular, Pulses: no pulse deficits are appreciated. 14:32 Respiratory: the patient does not display signs of respiratory distress, Respirations: normal, Breath sounds: are clear throughout. Vital Signs: 14:10 BP 128 / 72; Pulse 122; Resp 18; Temp 98.5; Pulse Ox 100% on R/A; Weight 100.24 kg; mg2 Height 5 ft. 7 in. (170.18 cm); 16:08 BP 141 / 47; Pulse 111; Resp 18; Pulse Ox 95% on R/A; mg2 17:00 BP 141 / 60; Pulse 114; Resp 18; Pulse Ox 95% on R/A; mg2 17:00 BP 121 / 46; Pulse 112; Resp 18; Pulse Ox 95% ; mg2 18:17 BP 108 / 58; Pulse 117; Resp 18; Temp 98.5; Pulse Ox 95% on R/A; mg2 14:10 Body Mass Index 34.61 (100.24 kg, 170.18 cm) mg2 MDM: 14:19 Patient medically screened. [facility] 16:27 Data reviewed: vital signs, nurses notes. Counseling: I had a detailed discussion with [facility] the patient and/or guardian regarding: the historical points, exam findings, and any diagnostic results supporting the discharge/admit diagnosis, lab results, radiology results, the need for further work-up and treatment in the hospital. ED course: i discussed the patient with Dr. Akins whom accepted admission. . 08/31 14:20 Order name: Basic Metabolic Panel; Complete Time: 15:42 [facility] 08/31 14:20 Order name: CBC with Diff; Complete Time: 15:42 [facility] 08/31 14:20 Order name: LFT's; Complete Time: 15:42 [facility] 08/31 14:20 Order name: Magnesium; Complete Time: 15:42 [facility] 08/31 14:20 Order name: NT PRO-BNP; Complete Time: 15:42 [facility] 08/31 14:20 Order name: PT-INR; Complete Time: 15:15 [facility] 08/31 14:20 Order name: Troponin (emerg Dept Use Only); Complete Time: 15:42 [facility] 08/31 14:21 Order name: Procalcitonin; Complete Time: 16:03 [facility] 08/31 14:21 Order name: Lactate; Complete Time: 15:42 [facility] 08/31 14:21 Order name: Blood Culture Adult (2) [facility] 08/31 14:21 Order name: Flu; Complete Time: 16:34 [facility] 08/31 14:25 Order name: Glucose, Ancillary Testing; Complete Time: 14:27 [facility] 08/31 16:34 Order name: Urine Culture [facility] 08/31 16:54 Order name: Urine Dipstick--Ancillary (enter results) [facility] 08/31 14:20 Order name: XRAY Chest (1 view); Complete Time: 15:42 [facility] 08/31 17:22 Order name: Thyroid Stimulating Hormone [facility] 08/31 17:22 Order name: CBC with Automated Diff [facility] 08/31 17:22 Order name: CBC with Automated Diff [facility] 08/31 17:22 Order name: CKMB Creatine Kinase MB [facility] 08/31 17:22 Order name: CKMB Creatine Kinase MB [facility] 08/31 17:22 Order name: CKMB Creatine Kinase MB [facility] 08/31 17:22 Order name: CKMB Creatine Kinase MB [facility] 08/31 17:22 Order name: Comprehensive Metabolic Panel [facility] 08/31 17:22 Order name: Comprehensive Metabolic Panel [facility] 08/31 17:22 Order name: Troponin I [facility] 08/31 17:22 Order name: Troponin I [facility] 08/31 17:22 Order name: Troponin I [facility] 08/31 17:22 Order name: Troponin I [facility] 08/31 14:20 Order name: EKG; Complete Time: 14:21 [facility] 08/31 14:20 Order name: Cardiac monitoring; Complete Time: 15:12 [facility] 08/31 14:20 Order name: EKG - Nurse/Tech; Complete Time: 15:13 [facility] 08/31 14:20 Order name: IV Saline Lock; Complete Time: 15:13 [facility] 08/31 14:20 Order name: Labs collected and sent; Complete Time: 15:13 [facility] 08/31 14:20 Order name: O2 Per Protocol; Complete Time: 15:13 [facility] 08/31 14:20 Order name: O2 Sat Monitoring; Complete Time: 15:13 [facility] 08/31 15:17 Order name: Labs - recollect needed: Lavender recollect; Complete Time: 16:37 4 08/31 17:22 Order name: Consistent Carb (ADA) [address] [place] [facility] Administered Medications: 15:12 Drug: NS 0.9% 500 ml Route: IV; Rate: bolus; Site: left antecubital; mg2 18:18 Follow up: Response: No adverse reaction; IV Status: Completed infusion; IV Intake: mg2 500ml Disposition: 08/31/19 16:28 Hospitalization ordered by Rl Akins for Observation. Preliminary diagnosis are Dehydration, Tachycardia, unspecified, Hyperglycemia, unspecified, Hypokalemia. - Bed requested for Telemetry/MedSurg (observation). - Status is Observation. mg2 - Condition is Stable. - Problem is new. - Symptoms are unchanged. Addendum: 09/02/2019 17:50 Co-signature as Attending Physician, Job Hoang MD I agree with the assessment and c david plan of care. Signatures: Dispatcher [employer] [facility] Aruna Taylor RN RN dw Anderson, Corey, MD MD cha Mickail, Joel, PA PA [facility] Rodo Urrutia RN RN [facility] Derrick Mota [facility] Corrections: (The following items were deleted from the chart) 08/31 17:26 16:03 Chest For PE Angio+CT.RAD.BRZ ordered. [facility] 17:59 16:28 Hospitalization Ordered by Rl Akins MD for Observation. Preliminary dw diagnosis is Dehydration; Tachycardia, unspecified; Hyperglycemia, unspecified; Hypokalemia. Bed requested for Telemetry/MedSurg (observation). Status is Observation. Condition is Stable. Problem is new. Symptoms are unchanged. [facility] 18:48 17:59 08/31/2019 16:28 Hospitalization Ordered by Rl Akins MD for Observation. mg2 Preliminary diagnosis is Dehydration; Tachycardia, unspecified; Hyperglycemia, unspecified; Hypokalemia. Bed requested for Telemetry/MedSurg (observation). Status is Observation. Condition is Stable. Problem is new. Symptoms are unchanged. dw
--- NOTE | 2019-08-31 17:12 | P.HP ---
Certification for Inpatient Patient admitted to: Observation With expected LOS: <2 Midnights Practitioner: I am a practitioner with admitting privileges, knowledge of patient current condition, hospital course, and medical plan of care. Services: Services provided to patient in accordance with Admission requirements found in Title 42 Section 412.3 of the Code of Federal Regulations Patient History Date of Service: 08/31/19 Reason for admission: Generalized weakness History of Present Illness: 73 yrs old Female with past medical history of diabetes, hypertension, hyperlipidemia, admitted with generalized weakness and complains of cough , elevated glucose, . the patient had a recent admissions and was in [facility]. She was having generalized weakness and was having chronic cough for the last 1 month, patient was examined in the ER and had a workup showed dehydration and possible acute renal insufficiency along with tachycardia and was admitted for further management The patient is a poor historian hence most of the history is obtained from the chart review and also talking to the family members. Allergies ciprofloxacin Allergy (Verified 06/14/19 05:01) Hallucinations erythromycin base Allergy (Verified 06/14/19 05:01) Itching/Hives/Rash losartan Allergy (Verified 06/14/19 05:01) Hallucinations Macrolide Antibiotics Allergy (Verified 06/14/19 05:01) Itching/Hives/Rash metronidazole [From Flagyl] Allergy (Verified 06/14/19 05:01) Itching/Hives/Rash Penicillins Allergy (Verified 06/14/19 05:01) Itching/Hives/Rash pentoxifylline Allergy (Verified 06/14/19 05:01) Itching/Hives/Rash Home medications list reviewed: Yes Home Medications: Acetic Acid 0.25% [Acetic Acid 0.25%*] 1 appl IR DAILY 03/18/19 Codeine/APAP [Tylenol #3*] 1 tab PO Q4HP PRN 03/18/19 Fluticasone [Flonase 50MCG Nasal [place]*] 2 sprays NS DAILY 03/18/19 Insulin Degludec [Tresiba Flextouch U-100] 65 unit SQ DAILY 03/18/19 Latanoprost/Pf [Latanoprost 0.005% Eye Drop] 1 gtt EACH EYE BEDTIME 03/18/19 Levothyroxine Sodium 25 mcg PO DAILY 03/18/19 Metoprolol Succinate [Toprol Xl*] 50 mg PO BID 03/18/19 Montelukast [Singulair*] 10 mg PO BEDTIME 03/18/19 Pramipexole [Mirapex*] 0.25 mg PO DAILY 03/18/19 Pramipexole [Mirapex*] 0.5 mg PO BEDTIME 03/18/19 Pregabalin [Lyrica] 300 mg PO BID 03/18/19 Tramadol HCl [Ultram] 50 mg PO Q6HP PRN 03/18/19 Ferrous Sulfate [Ferrous Sulfate*] 1 tab PO DAILY 06/10/19 Glimepiride 1 tab PO BIDWM 06/10/19 Rivaroxaban [Xarelto] 1 tab PO DAILY 06/10/19 Midodrine HCl [Proamatine*] 5 mg PO TID tab 06/13/19 Atorvastatin Calcium [Lipitor] 10 mg PO BEDTIME #30 tab 06/28/19 Furosemide [Lasix*] 20 mg PO BIDL #60 tab 06/28/19 Hydrocortisone Cream [Hydrocortisone 1% Cream*] 1 appl TOP TID PRN #1 tube 06/28 Pantoprazole [Protonix Tab] 40 mg PO DAILY #30 tab 06/28/19 Spironolactone [Aldactone*] 25 mg PO BID #60 tab 06/28/19 predniSONE [Deltasone*] 10 mg PO DAILY #30 tab 06/28/19 - Past Medical/Surgical History Diabetic: Yes Past Medical History: Reviewed- Non-Contributory -: Pneumonia -: DM -: HTN -: HLD -: Hypothyroidism -: Neuropathy -: Glaucoma -: Atrial Fibrillation Past Surgical History: Reviewed- Non-Contributory -: EYE SX -: CERVICAL SPINE SX -: HYSTERECTOMY -: APPENDECTOMY -: left FOOT SX - Family History Family History: Reviewed- Non-Contributory - Family History Mother -: Cancer Notes: stomach and intestinal cancer Father -: Heart disease - Social History Smoking Status: Never smoker Alcohol use: No CD- Drugs: No Caffeine use: Yes Review of Systems 10-point ROS is otherwise unremarkable Physical Examination - Physical Exam General: Alert, In no apparent distress HEENT: Atraumatic, Normocephalic Neck: Supple Respiratory: Clear to auscultation bilaterally, Normal air movement Cardiovascular: Other (Tachycardia) Gastrointestinal: Soft and benign, W/out hepatosplenomegaly Musculoskeletal: No clubbing, Swelling Integumentary: No rashes Neurological: Normal speech, Normal strength at 5/5 x4 extr Lymphatics: No axilla or inguinal lymphadenopathy External genitalia: Deferred Rectal: Deferred - Studies Laboratory Data (last 24 hrs) 08/31/19 15:11: WBC 10.6, Hgb 13.0, Hct 39.7, Plt Count 232 08/31/19 14:50: PT 12.4, INR 1.05 08/31/19 14:50: Sodium 136, Potassium 3.2 L, BUN 22 H, Creatinine 1.36 H, Glucose 226 H, Magnesium 2.1, Total Bilirubin 0.5, AST 16, ALT 18, Alkaline Phosphatase 52 Laboratory Last Values WBC 10.6 K/uL (4.3-10.9) 08/31/19 15:11 RBC 5.09 M/uL (3.86-4.86) H 08/31/19 15:11 Hgb 13.0 g/dL (12.0-15.0) 08/31/19 15:11 Hct 39.7 % (36.0-45.0) 08/31/19 15:11 MCV 78.0 fL (80-100) L 08/31/19 15:11 MCH 25.6 pg (27.0-35.0) L 08/31/19 15:11 MCHC 32.8 g/dL (32.0-36.0) 08/31/19 15:11 RDW 18.4 % (12.1-15.2) H 08/31/19 15:11 Plt Count 232 K/uL (152-406) 08/31/19 15:11 MPV 8.9 fL (7.6-11.3) 08/31/19 15:11 Neutrophils % 71.8 % (41.7-73.7) 08/31/19 15:11 Lymphocytes % 16.4 % (15.3-44.8) 08/31/19 15:11 Monocytes % 7.3 % (3.3-12.3) 08/31/19 15:11 Eosinophils % 3.9 % (0-4.4) 08/31/19 15:11 Basophils % 0.6 % (0-1.3) 08/31/19 15:11 Absolute Neutrophils 7.6 K/uL (1.8-8.0) 08/31/19 15:11 Absolute Lymphocytes 1.7 K/uL (0.7-4.9) 08/31/19 15:11 Absolute Monocytes 0.8 K/uL (0.1-1.3) 08/31/19 15:11 Absolute Eosinophils 0.4 K/uL (0-0.5) 08/31/19 15:11 Absolute Basophils 0.1 K/uL (0-0.5) 08/31/19 15:11 PT 12.4 SECONDS (9.5-12.5) 08/31/19 14:50 INR 1.05 08/31/19 14:50 Sodium 136 mmol/L (136-145) 08/31/19 14:50 Potassium 3.2 mmol/L (3.5-5.1) L 08/31/19 14:50 Chloride 94 mmol/L (98-107) L 08/31/19 14:50 Carbon Dioxide 34 mmol/L (21-32) H 08/31/19 14:50 BUN 22 mg/dL (7-18) H 08/31/19 14:50 Creatinine 1.36 mg/dL (0.55-1.3) H 08/31/19 14:50 Estimated GFR 38 mL/min (=/>90) L 08/31/19 14:50 Glucose 226 mg/dL (74-106) H 08/31/19 14:50 POC Glucose 242 mg/dl (65-120) H 08/31/19 14:12 Lactic Acid 1.5 mmol/L (0.4-2.0) 08/31/19 14:50 Calcium 9.6 mg/dL (8.5-10.1) 08/31/19 14:50 Magnesium 2.1 mg/dL (1.8-2.4) 08/31/19 14:50 Total Bilirubin 0.5 mg/dL (0.2-1.0) 08/31/19 14:50 Direct Bilirubin 0.2 mg/dL (0-0.2) 08/31/19 14:50 AST 16 U/L (15-37) 08/31/19 14:50 ALT 18 U/L (12-78) 08/31/19 14:50 Alkaline Phosphatase 52 U/L (45-117) 08/31/19 14:50 Rapid Troponin I < 0.02 ng/mL (0.0-0.045) 08/31/19 14:50 NT-Pro-B Natriuret Pep 278 pg/mL (<125) H 08/31/19 14:50 Serum Total Protein 7.7 g/dL (6.4-8.2) 08/31/19 14:50 Albumin 3.3 g/dL (3.4-5.0) L 08/31/19 14:50 Globulin 4.4 g/dL (2.3-3.5) H 08/31/19 14:50 Albumin/Globulin Ratio 0.8 (1.1-1.8) L 08/31/19 14:50 Procalcitonin 0.06 ng/mL (<0.50) 08/31/19 14:50 Microbiology Data (last 24 hrs): 08/31/19 15:12 Nasopharnyx Influenza Type A Antigen Screen - Final 08/31/19 15:12 Nasopharnyx Influenza Type B Antigen Screen - Final Assessment and Plan - Problems (Diagnosis) (1) Acute renal insufficiency Current Visit: Yes Status: Acute (2) Dehydration Current Visit: Yes Status: Acute (3) Diabetes Current Visit: No Status: Chronic Qualifiers: (4) Hypertension Onset Date: 04/12/17 Current Visit: No Status: Chronic Qualifiers: (5) Lymphedema Current Visit: No Status: Chronic (6) PAD (peripheral artery disease) Current Visit: No Status: Chronic (7) Restless leg syndrome Onset Date: 04/12/17 Current Visit: No Status: Chronic Plan: Acute renal insufficiency Dehydration Tachycardia Diabetes Restless leg syndrome Chronic cough Plan Monitor under telemetry Trend cardiac enzymes Moderate hydration monitor renal parameters Was closely for tachycardia if tachycardia persists will consult cardiology Patient follows with Dr. Fuentes as outpatient Continue home medications and titrate as needed will hold diuretics for now GI/DVT prophylaxis Advanced directives full code - Advance Directives Does patient have a Living Will: No Does patient have a Durable POA for Healthcare: No Time Spent Managing Pts Care (In Minutes): 45
[2019-08-31] MEDS ORDERED: ONDANSETRON 4 MG/2 ML VIAL IV PRN (17:14)
[2019-08-31] MEDS ORDERED: ACETAMINOPHEN 500 MG TAB PO PRN (17:14)
[2019-08-31] MEDS ORDERED: HYDROCORTISONE 1 % CREAM 30GM TOP PRN ×2 (17:20→23:38)
[2019-08-31] MEDS ORDERED: TRAMADOL HCL 50 MG TAB PO PRN ×2 (17:20→23:38)
[2019-08-31] MEDS ORDERED: CODEINE 30MG/APAP 300MG TAB PO PRN (17:20)
[2019-08-31 17:52] LABS: Urine Blood NEGATIVE (NEG); Urine Glucose 2+ (NEG); Urine Protein NEGATIVE (NEG); Urine Specific Gravity 1.015 (1.005-1.030)
[2019-08-31] MEDS ORDERED: FLUTICASONE 50MCG NASAL SPRAY NAS SCH (18:30)
[2019-08-31] MEDS ORDERED: KCL 10 MEQ/100 ML IVPB 10 MEQ/100 ML BAG IV SCH (19:00)
--- OUTSIDE RECORDS SUMMARY | 2019-08-31 19:31 | XMS REPORT ---
:1945 [facility] Address [address] [place] [address] Care Team Providers Name Role Phone Unavailable Unavailable Unavailable Problems This patient has no known problems. Allergies, Adverse Reactions, Alerts This patient has no known allergies or adverse reactions. Medications This patient has no known medications.
--- OUTSIDE RECORDS SUMMARY | 2019-08-31 19:43 | XMS REPORT | Summary of Care ---
:1945 Author Organization [facility] Address [address] [place] [address] Care Team Providers Name Role Phone Nichelle Escamilla MD Primary Care Provider Michael Fontana MD Unavailable Zack Fuentes Unavailable Haseeb Cabrera DPM Unavailable Kendrick Le Unavailable Ian Dc Unavailable Remberto Su MD Unavailable Americo Arreaga MD Unavailable Reason for Visit Reason Comments Assessment Encounter Details Date Type Department Care Team Description 08/16/2019 Telephone [facility] Pediatric and Nichelle Escamilla, Assessment Adult Primary Care- MD Fine [address] [facility] [address] [facility] , [address] [place] [address] [place] [address] Allergies Active Allergy Reactions Severity Noted Date Comments Ciprofloxacin Unknown - See comments 04/11/2018 Losartan Potassium Shortness of Breath, Cough High 03/22/2017 Metronidazole Unknown - See comments 04/11/2018 Macrolide Antibiotics Rash 06/11/2015 Penicillin Rash 06/11/2015 Pentoxifylline Itching, Shortness of Breath 01/15/2017 documented as of this encounter (statuses as of 08/16/2019) Medications Medication Sig Dispensed Refills Start Date End Date Status LANCETS (ACCU-CHEK 0 Active MULTICLIX LANCET MISC) aspirin (ASPIRIN LOW Take 81 mg by 0 Active DOSE) 81 mg EC mouth daily. tablet CINNAMON BARK Take 1,000 mg by 0 Active (CINNAMON ORAL) mouth. pramipexole TAKE 1/2 TABLET 6 04/01/2016 Active (MIRAPEX) 0.5 mg EVERY MORNING AND tablet 1 TABLET EVERY EVENING pravastatin TAKE 1 TABLET BY 5 04/05/2016 Active (PRAVACHOL) 40 mg MOUTH AT BEDTIME tablet latanoprost Place 1 Drop in 0 Active (XALATAN) 0.005 % both eyes every ophthalmic drops evening. DOCUSATE SODIUM Take by mouth. 0 Active (DULCOLAX STOOL SOFTENER, DSS, ORAL) MULTIVITAMIN WITH Take by mouth. 0 Active MINERALS (HAIR,SKIN AND NAILS ORAL) MULTIVITAMIN ORAL Take by mouth. 0 Active Radiance calcium, magnesium, zinc, prescribed by Dr. cD. Insulin Use as directed 100 Syringe 11 03/22/2018 Active Syringe-Needle U-100 for diabetes, (BD INSULIN SYRINGE E11.9, inject self UF) 0.3 mL 30 gauge daily. x 1/2" SyrgIndications: Controlled type 2 diabetes mellitus without complication, with long-term current use of insulin metoprolol succinate TAKE 1 TABLET BY 3 04/12/2018 Active XL 50 mg 24 hr MOUTH TWICE A DAY tablet pyridoxine HCl, Take by mouth. 0 Active vitamin B6, (VITAMIN B-6 ORAL) POTASSIUM GLUCONATE Take by mouth. 0 Active ORAL FERROUS SULFATE 325 TAKE 1 TABLET BY 90 tablet 3 10/22/2018 Active mg (65 mg iron) MOUTH EVERY DAY tabletIndications: WITH BREAKFAST Iron deficiency Additional information Patient taking differently: TAKE 1 TABLET BY MOUTH EVERY DAY IN THE EVENING, Reported on 02/02/2019 9:54 AM ACCU-CHEK PHILLIP Take sugars 1-2 times a 200 Strip 11 11/10/2018 Active stripIndications: day, DX E11.9 Uncontrolled type 2 diabetes mellitus with hyperglycemia fluticasone (FLONASE) 50 Use 2 Sprays in each 48 g 3 2018 Active mcg/actuation nasal nostril daily. sprayIndications: Chronic allergic rhinitis acetic acid 0.25 % WASH LEGS DAILY 1 01/25/2019 Active irrigation solution glimepiride 4 mg Take 1 tablet by mouth 180 tablet 1 02/20/2019 Active tabletIndications: 2 (two) times daily. Uncontrolled type 2 diabetes mellitus with hyperglycemia insulin degludec (TRESIBA inject 65 Units under 30 mL 2 03/15/2019 Active FLEXTOUCH U-100) 100 unit/mL the skin daily. (3 mL) InPnIndications: Uncontrolled type 2 diabetes mellitus with hyperglycemia levothyroxine 25 mcg TAKE 1 TABLET BY MOUTH 90 tablet 3 03/15/2019 Active tabletIndications: EVERY DAY IN THE Hypothyroidism, unspecified MORNING type pregabalin 300 mg Take 1 capsule by mouth 60 capsule 3 03/15/2019 Active capsuleIndications: 2 (two) times daily. Neuropathy, Spinal stenosis of cervical region, Itching montelukast (SINGULAIR) 10 Take 10 mg by mouth. 0 Active mg tablet rivaroxaban 20 mg Take 1 tablet by mouth 30 tablet 0 04/15/2019 Active tabletIndications: every evening. Take Cellulitis of lower with dinner extremity, unspecified laterality ketoconazole 2 % Apply to area(s) 15 g 0 04/16/2019 Active creamIndications: Cellulitis daily. of lower extremity, unspecified laterality furosemide 80 mg Take 1 tablet by mouth 30 tablet 0 04/15/2019 Active tabletIndications: every morning. Cellulitis of lower extremity, unspecified laterality triamcinolone acetonide 0.1 Apply to area(s) 2 15 g 0 04/15/2019 Active % creamIndications: (two) times daily. Cellulitis of lower extremity, unspecified laterality omeprazole 40 mg Take 1 capsule by mouth 90 capsule 2 04/15/2019 Active capsuleIndications: every morning. Gastroesophageal reflux disease, esophagitis presence not specified Miscellaneous Medical Supply Needs [facility] 100 Each 3 04/27/2019 Active MiscIndications: Leg booties to keep feet swelling covered to prevent infection. triamcinolone 0.1 % Apply to area(s) 3 60 mL 0 05/04/2019 Active lotionIndications: (three) times daily. Cellulitis of lower extremity, unspecified laterality rivaroxaban (XARELTO) 20 mg Take 1 tablet by mouth 30 tablet 0 05/04/2019 Active tabletIndications: with evening meal. Cellulitis of lower extremity, unspecified laterality traMADol 50 mg TAKE 1 TABLET BY MOUTH 90 tablet 1 05/27/2019 Active tabletIndications: EVERY 6 HOURS NEEDED Neuropathy, Spinal stenosis FOR BREATKTHROUGH of cervical region, Itching NEUROPATHY PAIN IN FEET. Insulin [place], Disposable, Use as directed, once a 100 Each 1 07/02/2019 Active (BD INSULIN PEN NEEDLE UF) day, DX:E11.9 29 gauge x 1/2" NdleIndications: Uncontrolled type 2 diabetes mellitus with hyperglycemia spironolactone (ALDACTONE) Take 25 mg by mouth 0 Active 25 mg tablet daily. diphenhydramine HCl Take by mouth. 0 Active (BENADRYL ALLERGY ORAL) doxycycline 100 mg tablet Take 100 mg by mouth 2 0 Active (two) times daily. atorvastatin 10 mg tablet Take 10 mg by mouth at 0 Active bedtime. METOPROLOL TARTRATE ORAL Take 50 mg by mouth. 0 Active pantoprazole (PROTONIX) 40 Take 40 mg by mouth 0 Active mg EC tablet daily. L.acidoph/B.long/L.plant/B.l Take by mouth. 0 Active ac (PROBIOTIC ACIDOPHILUS BEADS ORAL) documented as of this encounter (statuses as of 08/16/2019) Active Problems Problem Noted Date Cellulitis of right leg 04/11/2019 Excessive daytime sleepiness 07/05/2017 Controlled type 2 diabetes mellitus without complication, with long-term 11/13 current use of insulin Essential hypertension 06/26/2015 Hyperlipidemia 06/26/2015 Hypothyroidism (acquired) 06/26/2015 documented as of this encounter (statuses as of 08/16/2019) Immunizations Name Administration Dates Next Due Influenza High Dose 04/15/2019, 04/24/2018, 04/13/2017, 07/12/2016 Pneumococcal 13 Conjugate, PCV13 07/12/2016 (Prevnar 13) Pneumococcal Polysaccharide, PPSV23 10/03/2017, 06/19/2011, 05/05/2011 (PNEUMOVAX) Tdap 05/05/2011 documented as of this encounter Social History Tobacco Use Types Packs/Day Years Used Date Never Smoker Cigarettes Smokeless Tobacco: Never Used Alcohol Use Drinks/Week oz/Week Comments No 0 Standard drinks or equivalent 0.0 Education Answer Date Recorded What is the highest level of school you have Some college, no degree 2018 completed or the highest degree you have received? Sex Assigned at Date Recorded Not on file Job Start Date Occupation Industry Not on file Not on file Not on file Travel History Travel Start Travel End No recent travel history available. documented as of this encounter Last Filed Vital Signs Not on filedocumented in this encounter Plan of Treatment Date Type Specialty Care Team Description 08/24/2019 Office Visit Vascular Surgery Constance Stone MD [address] [place] [phone] 09/04/2019 Office Visit Internal Medicine Nichelle Escamilla MD [address] [place] [address] Dr Guillen [address] [place] [address] [phone] Health Maintenance Due Date Last Done Comments Zoster Recombinant Vaccine 1996 (SHINGRIX) (1 of 2) Medicare Wellness Visit 12/12/2011 Osteoporosis Screening 12/12/2011 Breast Cancer Screening 08/09/2017 08/09/2016, 05/20/2010 (MAMMOGRAM) (Previously completed) URINE MICROALBUMIN 04/11/2019 04/11/2018, 04/06/2017, 06/14/2016 FOOT EXAM 08/11/2019 08/11/2018, 08/11/2018, 05/09/2018, Additional history exists LDL-C 09/05/2019 09/04/2018, 07/05/2017, 04/06/2017, Additional history exists HgA1C 10/12/2019 04/12/2019, 02/20/2019, 11/10/2018, Additional history exists EYE EXAM 02/28/2020 02/27/2019, 12/13/2017 (Previously completed), 03/01/2017 (Previously completed), Additional history exists CREATININE (SERUM) 04/14/2020 04/14/2019, 04/13/2019, 04/12/2019, Additional history exists COLONOSCOPY 05/20/2020 05/20/2010 (Previously completed) DTaP,Tdap,and Td Vaccines (2 - Td) 05/05/2021 05/05/2011 HEPATITIS C (HCV) SCREEN Completed 04/06/2017 PNEUMOCOCCAL VACCINES 65+ Completed 10/03/2017, 07/12/2016, 06/19/2011, Additional history exists INFLUENZA VACCINE Completed 04/15/2019, 04/24/2018, 04/13/2017, Additional history exists documented as of this encounter Results Not on filedocumented in this encounter Insurance Payer Benefit Plan Subscriber ID Effective Phone Address Type / Group Dates MEDICARE MEDICARE xxxxxxxxxxx 2011-Pres [phone] Medicare PART A & B ent [id number] [place] [id number] [place] [id number] 2011-Pres Medicare SAMY PABLO ent Supplement documented as of this encounter
--- OUTSIDE RECORDS SUMMARY | 2019-08-31 19:43 | XMS REPORT | Summary of Care ---
:1945 Author Organization [facility] Address [address] [place] [address] Care Team Providers Name Role Phone Nichelle Escamilla MD Primary Care Provider Michael Fontana MD Unavailable Zack Fuentes Unavailable Haseeb Cabrera DPM Unavailable Kendrick Le Unavailable Ian Dc Unavailable Remberto Su MD Unavailable Americo Arreaga MD Unavailable Reason for Visit Reason Comments Refill Request Encounter Details Date Type Department Care Team Description 07/27/2019 Refill [facility] Endocrinology- Jayden Mitchell MD Refill Request [address] Professional Office [address] [phone] [address] [place] [address] Allergies Active Allergy Reactions Severity Noted Date Comments Ciprofloxacin Unknown - See comments 04/11/2018 Losartan Potassium Shortness of Breath, Cough High 03/22/2017 Metronidazole Unknown - See comments 04/11/2018 Macrolide Antibiotics Rash 06/11/2015 Penicillin Rash 06/11/2015 Pentoxifylline Itching, Shortness of Breath 01/15/2017 documented as of this encounter (statuses as of 07/30/2019) Medications Medication Sig Dispensed Refills Start Date [...] presence not specified Miscellaneous Medical Supply Needs [facility] 100 Each 3 04/27/2019 Active MiscIndications: Leg [...] region, Itching NEUROPATHY PAIN IN FEET. Insulin [place], Disposable, Use as directed, once a 100 [...] as of this encounter (statuses as of 07/30/2019) Active Problems Problem Noted Date Cellulitis of right leg 04/11/2019 Excessive daytime sleepiness 07/05/2017 Controlled type 2 diabetes mellitus without complication, with long-term 11/13 current use of insulin Essential hypertension 06/26/2015 Hyperlipidemia 06/26/2015 Hypothyroidism (acquired) 06/26/2015 documented as of this encounter (statuses as of 07/30/2019) Immunizations Name Administration Dates Next Due Influenza [...] Office Visit Vascular Surgery Constance Stone MD [address] [place] [phone] Health Maintenance Due Date Last Done Comments [...] Medicare PART A & B ent [id number] [place] [id number] [place] [id number] 2011-Pres Medicare SAMY PABLO ent Supplement documented as of this encounter
--- OUTSIDE RECORDS SUMMARY | 2019-08-31 19:44 | XMS REPORT | Summary of Care ---
:1945 Author Organization [facility] Address [address] [place] [address] Care Team Providers Name Role Phone Nichelle Escamilla MD Primary Care Provider Michael Fontana MD Unavailable Zack Fuentes Unavailable Haseeb Cabrera DPM Unavailable Kendrick Le Unavailable Ian Dc Unavailable Remberto Su MD Unavailable Americo Arreaga MD Unavailable Reason for Visit Reason Comments Notification Encounter Details Date Type Department Care Team Description 08/13/2019 Telephone [facility] Pediatric and Nichelle Escamilla, Notification Adult Primary Care- MD Fine [address] [facility] [address] [facility] , [address] [place] [address] [place] [address] Allergies Active Allergy Reactions Severity Noted Date Comments Ciprofloxacin Unknown - See comments 04/11/2018 Losartan Potassium Shortness of Breath, Cough High 03/22/2017 Metronidazole Unknown - See comments 04/11/2018 Macrolide Antibiotics Rash 06/11/2015 Penicillin Rash 06/11/2015 Pentoxifylline Itching, Shortness of Breath 01/15/2017 documented as of this encounter (statuses as of 08/13/2019) Medications Medication Sig Dispensed Refills Start Date [...] presence not specified Miscellaneous Medical Supply Needs [facility] 100 Each 3 04/27/2019 Active MiscIndications: [...] region, Itching NEUROPATHY PAIN IN FEET. Insulin [place], Disposable, Use as directed, once a 100 [...] as of this encounter (statuses as of 08/13/2019) Active Problems Problem Noted Date Cellulitis of right leg 04/11/2019 Excessive daytime sleepiness 07/05/2017 Controlled type 2 diabetes mellitus without complication, with long-term 11/13 current use of insulin Essential hypertension 06/26/2015 Hyperlipidemia 06/26/2015 Hypothyroidism (acquired) 06/26/2015 documented as of this encounter (statuses as of 08/13/2019) Immunizations Name Administration Dates Next Due Influenza [...] Office Visit Vascular Surgery Constance Stone MD [address] [place] [phone] 09/04/2019 Office Visit Internal Medicine Nichelle Escamilla MD [address] [place] [address] Dr Gu[address]en [address] [place] [address] [phone] Health Maintenance Due Date Last Done Comments [...] Medicare PART A & B ent [id number] [place] [id number] [place] [id number] 2011-Pres Medicare SAMY PABLO ent Supplement documented as of this encounter
--- OUTSIDE RECORDS SUMMARY | 2019-08-31 19:44 | XMS REPORT | Summary of Care ---
:1945 Author Organization [facility] Address [address] [place] [address] Care Team Providers Name Role Phone Nichelle Escamilla MD Primary Care Provider Michael Fontana MD Unavailable Zack Fuentes Unavailable Haseeb Cabrera DPM Unavailable Kendrick Le Unavailable Ian Dc Unavailable Remberto Su MD Unavailable Americo Arreaga MD Unavailable Reason for Visit Reason Comments Medical Records Request for records Encounter Details Date Type Department Care Team Description 08/21/2019 Telephone [facility] Pediatric Nichelle Escamilla Medical Records and Adult Primary MD Seth (Request for records) Care- [place] [address] [address] [place], [place] [address] [place] [address] [phone] [address] [phone] Allergies Active Allergy Reactions Severity Noted Date Comments Ciprofloxacin Unknown - See comments 04/11/2018 Losartan Potassium Shortness of Breath, Cough High 03/22/2017 Metronidazole Unknown - See comments 04/11/2018 Macrolide Antibiotics Rash 06/11/2015 Penicillin Rash 06/11/2015 Pentoxifylline Itching, Shortness of Breath 01/15/2017 documented as of this encounter (statuses as of 08/23/2019) Medications Medication Sig Dispensed Refills Start Date End Date Status LANCETS (ACCU-CHEK 0 Active MULTICLIX LANCET MIS) aspirin (ASPIRIN LOW Take 81 mg by [...] presence not specified Miscellaneous Medical Supply Needs [facility] 100 Each 3 04/27/2019 Active MiscIndications: [...] region, Itching NEUROPATHY PAIN IN FEET. Insulin [place], Disposable, Use as directed, once a 100 [...] as of this encounter (statuses as of 08/23/2019) Active Problems Problem Noted Date Cellulitis of right leg 04/11/2019 Excessive daytime sleepiness 07/05/2017 Controlled type 2 diabetes mellitus without complication, with long-term 11/13 current use of insulin Essential hypertension 06/26/2015 Hyperlipidemia 06/26/2015 Hypothyroidism (acquired) 06/26/2015 documented as of this encounter (statuses as of 08/23/2019) Immunizations Name Administration Dates Next Due Influenza [...] Office Visit Vascular Surgery Constance Stone MD [address] [place] [address] [phone] Health Maintenance Due Date Last Done Comments [...] Medicare PART A & B ent [id number] [place] [id number] [place] [id number] 2011-Pres Medicare SAMY PABLO ent Supplement documented as of this encounter
--- OUTSIDE RECORDS SUMMARY | 2019-08-31 19:45 | XMS REPORT | Summary of Care ---
:1945 Author Organization [facility] - Health Address [address] [place], [place] [id number] Care Team Providers Name Role Phone Nichelle Escamilla MD Primary Care Provider Michael Fontana MD Unavailable Zack Fuentes Unavailable Haseeb Cabrera DPM Unavailable Kendrick Le Unavailable Ian Dc Unavailable Remberto Su MD Unavailable Americo Arreaga MD Unavailable Encounter Details Date Type Department Care Team Description 08/21/2019 Orders Only [facility] Doctor Unassigned, [address] [facility] [place] [address] [address] [place] [address] Allergies Active Allergy Reactions Severity Noted Date Comments Ciprofloxacin Unknown - See comments 04/11/2018 Losartan Potassium Shortness of Breath, Cough High 03/22/2017 Metronidazole Unknown - See comments 04/11/2018 Macrolide Antibiotics Rash 06/11/2015 Penicillin Rash 06/11/2015 Pentoxifylline Itching, Shortness of Breath 01/15/2017 documented as of this encounter (statuses as of 08/25/2019) Medications Medication Sig Dispensed Refills Start Date [...] 9:54 AM ACCU-CHEK PHILLIP Take sugars 1-2 200 Strip 11 11/10/2018 Active stripIndications: Uncontrolled times a day, DX type 2 diabetes mellitus with E11.9 hyperglycemia fluticasone (FLONASE) 50 Use 2 Sprays in each 48 g 3 2018 Active mcg/actuation nasal nostril daily. sprayIndications: Chronic allergic rhinitis acetic acid 0.25 % irrigation WASH LEGS DAILY 1 01/25/2019 Active solution glimepiride 4 mg Take 1 tablet by 180 tablet 1 02/20/2019 Active tabletIndications: Uncontrolled mouth 2 (two) times type 2 diabetes mellitus with daily. hyperglycemia insulin degludec (TRESIBA inject 65 Units 30 mL 2 03/15/2019 Active FLEXTOUCH U-100) 100 unit/mL (3 under the skin mL) InPnIndications: daily. Uncontrolled type 2 diabetes mellitus with hyperglycemia levothyroxine 25 mcg TAKE 1 TABLET BY 90 tablet 3 03/15/2019 Active tabletIndications: MOUTH EVERY DAY IN Hypothyroidism, unspecified THE MORNING type pregabalin 300 mg Take 1 capsule by 60 capsule 3 03/15/2019 Active capsuleIndications: Neuropathy, mouth 2 (two) times Spinal stenosis of cervical daily. region, Itching montelukast (SINGULAIR) 10 mg Take 10 mg by mouth. 0 Active tablet rivaroxaban 20 mg Take 1 tablet by 30 tablet 0 04/15/2019 Active tabletIndications: Cellulitis mouth every evening. of lower extremity, unspecified Take with dinner laterality ketoconazole 2 % Apply to area(s) 15 g 0 04/16/2019 Active creamIndications: Cellulitis of daily. lower extremity, unspecified laterality furosemide 80 mg Take 1 tablet by 30 tablet 0 04/15/2019 Active tabletIndications: Cellulitis mouth every morning. of lower extremity, unspecified laterality Additional information Patient taking differently: 40 mg Oral QAM, Reported on 08/24/2019 11:00 AM triamcinolone acetonide 0.1 Apply to area(s) 2 [...] region, Itching NEUROPATHY PAIN IN FEET. Insulin [place], Disposable, Use as directed, once a 100 [...] as of this encounter (statuses as of 08/25/2019) Active Problems Problem Noted Date Cellulitis of right leg 04/11/2019 Excessive daytime sleepiness 07/05/2017 Controlled type 2 diabetes mellitus without complication, with long-term 11/13 current use of insulin Essential hypertension 06/26/2015 Hyperlipidemia 06/26/2015 Hypothyroidism (acquired) 06/26/2015 documented as of this encounter (statuses as of 08/25/2019) Immunizations Name Administration Dates Next Due Influenza [...] Treatment Date Type Specialty Care Team Description 09/18/2019 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 [facility] 1 - 09/18/2019 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 Medicare PART A & B ent [id number] [place] [phone] [place] [id number] 2011-Pres Medicare SAMY PABLO ent Supplement documented as of this encounter
--- OUTSIDE RECORDS SUMMARY | 2019-08-31 19:46 | XMS REPORT | Summary of Care ---
:1945 Author Organization [facility] Address [address] [place] [address] Care Team Providers Name Role Phone Nichelle Escamilla MD Primary Care Provider Michael Fontana MD Unavailable Zack Fuentes Unavailable Haseeb Cabrera DPM Unavailable Kendrick Le Unavailable Ian Dc Unavailable Remberto Su MD Unavailable Americo Arreaga MD Unavailable Reason for Referral (Routine) Status Reason Specialty Diagnoses / Referred By Contact Referred To Procedures Contact New Request Cardiology Diagnoses Peripheral arterial disease Constance Stone, Procedures BILATERAL DUPLEX SCAN OF ARTERY BY VASCULAR LAB [address] [place] [phone] (Routine) Status Reason Specialty Diagnoses / Referred By Referred To Procedures Contact Contact New Request Vascular Surgery Diagnoses Peripheral arterial disease Bertha, Procedures WESLEY MULTI LEVEL BY VASCULAR LAB MD Constance [address] [place] [phone] Reason for Visit Reason Comments Follow-up 1 MO Encounter Details Date Type Department Care Team Description 08/24/2019 Office Visit [facility] Vascular Constance Stone Peripheral arterial Surgery- Babatunde EPPS disease (Primary Dx) [address] [address] [place], [place] [phone] [address] [phone] Allergies Active Allergy Reactions Severity Noted Date Comments Ciprofloxacin Unknown - See comments 04/11/2018 Losartan Potassium Shortness of Breath, Cough High 03/22/2017 Metronidazole Unknown - See comments 04/11/2018 Macrolide Antibiotics Rash 06/11/2015 Penicillin Rash 06/11/2015 Pentoxifylline Itching, Shortness of Breath 01/15/2017 documented as of this encounter (statuses as of 08/26/2019) Medications Medication Sig Dispensed Refills Start Date [...] presence not specified Miscellaneous Medical Supply Needs [facility] 100 Each 3 04/27/2019 Active [...] region, Itching NEUROPATHY PAIN IN FEET. Insulin [place], Disposable, Use as directed, once a 100 [...] 0 Active ac (PROBIOTIC ACIDOPHILUS BEADS ORAL) metOLazone 5 mg tablet Take 5 mg by mouth 0 Active daily. dapagliflozin (FARXIGA) 10 Take by mouth. 0 Active mg tablet KCL 20 mEq tablet Take by mouth daily. 0 Active midodrine 5 mg tablet Take 5 mg by mouth. 0 Active documented as of this encounter (statuses as of 08/26/2019) Active Problems Problem Noted Date Cellulitis of right leg 04/11/2019 Excessive daytime sleepiness 07/05/2017 Controlled type 2 diabetes mellitus without complication, with long-term 11/13 current use of insulin Essential hypertension 06/26/2015 Hyperlipidemia 06/26/2015 Hypothyroidism (acquired) 06/26/2015 documented as of this encounter (statuses as of 08/26/2019) Immunizations Name Administration Dates Next Due Influenza [...] of this encounter Last Filed Vital Signs Vital Sign Reading Time Taken Comments Blood Pressure 123/69 08/24/2019 10:37 AM ENGRAVED ROLLER INSPECTOR Pulse 114 08/24/2019 10:37 AM ENGRAVED ROLLER INSPECTOR Temperature 37 C (98.6 F) 08/24/2019 10:37 AM ENGRAVED ROLLER INSPECTOR Respiratory Rate 18 08/24/2019 10:37 AM ENGRAVED ROLLER INSPECTOR Oxygen Saturation 99% 08/24/2019 10:37 AM ENGRAVED ROLLER INSPECTOR Inhaled Oxygen Concentration - - Weight 100.5 kg (221 lb 9.6 oz) 08/24/2019 10:37 AM ENGRAVED ROLLER INSPECTOR Height - - Body Mass Index 33.69 07/12/2019 8:24 AM ENGRAVED ROLLER INSPECTOR documented in this encounter Progress Notes Constance Stone MD - 08/24/2019 10:00 AM CSTI discussed the patient with Dr. Squires then personally examined the patient on 08/24/2019. I agree with the note as detailed by Dr. Squires. I actively participated in the decision- making process regarding the assessment and plan of care. Please see the resident's note for additional details. Constance Stone MD, [facility] Vascular Surgery Murray Land MD - 08/24/2019 10:00 AM CST VASCULAR SURGERY - CLINIC NOTE Date of Service: 08/24/19 HPI 05/04/19 Stephany Bran is a 73 year old female here for follow up of hospital admission for cellulitis from last clinic visit. She has done well and has home health coming to check on her. She feels her legs aremore swollen than previously, however they are not painful anymore. The blistering has improved and she now no longer has open or draining lesions. She was placed on Xarelto for popliteal DVT during that hospital admission. Interval 07/12/2019 Pt did well initially after her last visit, however the redness of her legs began to return in May and she went to [facility] on 06/06 and was admitted for IV abx. Improved, and was later discharged to SNF on 06/28. She notes since then she has done well with rehab, however the redness ofher RLE and swelling of BLE is beginning to worsen again. She has not been using compression/elevation routinely and was started on Doxycycline 100mg BID x7d this morning by facility. Denies fevers/chills/nausea/vomiting. Interval 07/17/2019 Patient states her legs are still swollen and her feet swell up more after using compression stockings. She denies fevers, chills, n/v and any open wounds in the lower extremity. She is compliant with herABx. She never had a prescription for compression stockings that were based on her measurements. Interval History 08/24/19 Patient reports edema and pain of the bilateral lower extremities have improved dramatically. Almostno swelling to speak of. Reports her legs are still red, but are no longer tender to palpation. She has finished her courses of antibiotics and denies fevers/chills. Reports that the ulcers on her right bernal have almost healed completely. Denies symptoms of claudication but reports right 1st toe is cold an dusky at times compared with the right. She denies pain of the toe, but does have chronic decreased sensation of the foot in that leg, though reports she does occasionally experience pain in the toe/foot. PMH Past Medical History: Diagnosis Date Arthritis all over Hyperlipidemia Hypertension Follows with inspector insulation Dr. Fuentes Hypothyroidism Muscle tear 2016 of right knee Type 2 diabetes mellitus Follows with operations professional Dr. Andersen PAST SURGICAL HISTORY Past Surgical History: Procedure Laterality Date HYSTERECTOMY complete hysterectomy, endometriosis, removed ovaries but small piece was left in on purpose PHACOEMULSIFICATION OF CATARACT WITH INTRAOCULAR LENS IMPLANT MEDICATIONS - Reviewed SOCIAL HISTORY Social History Socioeconomic History Marital status: Spouse name: Armand Number of children: 0 Years of education: Not on file Highest education level: Some college, no degree Occupational History Not on file Social Needs Financial resource strain: Not on file Food insecurity: Worry: Not on file Inability: Not on file Transportation needs: Medical: Not on file Non-medical: Not on file Tobacco Use Smoking status: Never Smoker Smokeless tobacco: Never Used Substance and Sexual Activity Alcohol use: No Alcohol/week: 0.0 standard drinks Drug use: No Sexual activity: Not on file Lifestyle Physical activity: Days per week: Not on file Minutes per session: Not on file Stress: Not on file Relationships Social connections: Talks on phone: Not on file Gets together: Not on file Attends jewish service: Not on file Active member of club or organization: Not on file Attends meetings of clubs or organizations: Not on file Relationship status: Not on file Intimate partner violence: Fear of current or ex partner: Not on file Emotionally abused: Not on file Physically abused: Not on file Forced sexual activity: Not on file Other Topics Concern Not on file Social History Narrative Not on file FAMILY HISTORY Family History Problem Relation Age of Onset Neurological Mother TIAs Colon Cancer Mother and stomach cancer Hypertension Mother Arthritis Mother Hypertension Father Heart Father Arthritis Father I have reviewed the family history, it is non-contributory. ALLERGIES Allergies Allergen Reactions Losartan Potassium Shortness of Breath and Cough Ciprofloxacin Unknown - See comments Metronidazole Unknown - See comments Mycins [Macrolide Antibiotics] Rash Penicillin Rash Pentoxifylline Itching and Shortness of Breath REVIEW OF SYSTEMS General/Constitutional: Negative except per HPI Skin/Breast: Negative except per HPI HEENT: Negative except per HPI CV: Negative except per HPI Respiratory: Negative except per HPI GI: Negative except per HPI : Negative except per HPI Musculoskeletal: Negative except per HPI Neurologic: Negative except per HPI Hematologic: Negative except per HPI Endocrine: Negative except per HPI PHYSICAL EXAM General: alert and oriented in no apparent distress CV: hemodynamically stable Resp: unlabored, no increased work of breathing, equal bilateral chest rise Extremities/Musculoskeletal: moves extremities well, minimal edema to BLE, R greater than L Skin: BLE edema and redness up to knees, no open wounds or ulcers, no TTP, small dark wound to R great toe tip; RLE toes appear a bit dusky, PT signal present Assessment/Plan: Stephany Bran is a 73 year old female with PMH as above who has resolving BLE cellulitis and chronic venous stasis vs lymphedema. RLE with known vascular disease. Will obtain new studies and focus on inflow disease as lymphedema and cellulitis resolving. - Continue 20-30 mmHg compression stockings - Obtain BLE arterial duplex and multi-level ABIs - RTC in 4 weeks Murray Squires MD PGY-2, Vascular Surgery documented in this encounter Plan of Treatment Date Type Specialty Care Team Description 09/18/2019 Manager Crisis Visit [facility] Room 1 - 09/18/2019 Manager Crisis Visit Cardiology Pc, [facility]c Vascular Room 1 - 09/27/2019 Office Visit Vascular Surgery Constance Stone MD [address] [place] [phone] Health Maintenance Due Date Last Done Comments [...] filedocumented in this encounter Visit Diagnoses Diagnosis Peripheral arterial disease - Primary Unspecified disorders of arteries and arterioles documented in this encounter Insurance Payer Benefit Plan Subscriber ID Effective Phone Address Type / Group Dates MEDICARE MEDICARE xxxxxxxxxxx 2011-Pres [phone] Medicare PART A & B ent [id number] VIV[place]NA RYAN [id number] [place] [id number] 2011-Pres Medicare [place] ent Supplement documented as of this encounter
--- OUTSIDE RECORDS SUMMARY | 2019-08-31 19:46 | XMS REPORT | Summary of Care ---
:1945 Author Organization [facility] Address [address] [place], [place] [id number] Care Team Providers Name Role Phone Nichelle Escamilla MD Primary Care Provider Michael Fontana MD Unavailable Zack Fuentes Unavailable Haseeb Cabrera DPM Unavailable Kendrick Le Unavailable Ian Dc Unavailable Remberto Su MD Unavailable Americo Arreaga MD Unavailable Encounter Details Date Type Department Care Team Description 08/11/2019 Orders Only [facility] Doctor Unassigned, No [address] [facility] [place] [address] [address] [place] [address] Allergies Active Allergy Reactions Severity Noted Date [...] specified Miscellaneous Medical Supply Needs [facility] 100 Each 3 04/27/2019 Active MiscIndications: [...] region, Itching NEUROPATHY PAIN IN FEET. Insulin [place], Disposable, Use as directed, once a 100 [...] Date Type Specialty Care Team Description 09/18/2019 Business Objects Visit [facility]iology P[facility], [facility] Vascular Room 1 - 09/18/2019 Business Objects Visit Cardiology Pc, [facility] Vascular Room 1 - 09/27/2019 Office Visit Vascular Surgery Constance Stone MD [address] [place] [phone] Health Maintenance Due Date Last Done Comments [...] Procedure Name Priority Date/Time Associated Diagnosis Comments HOME HEALTH 485 Routine 08/11/2019 12:01 AM SHANK THREADER documented in this encounter Results Not on filedocumented in this encounter Insurance Payer Benefit Plan Subscriber ID Effective Phone Address Type / Group Dates MEDICARE MEDICARE xxxxxxxxxxx 2011-Pres [phone] Medicare PART A & B ent [id number] [place]IV[place] RYAN [id number] [place] [id number] 2011-Pres Medicare [place] PABLO ent Supplement documented as of this encounter
--- OUTSIDE RECORDS SUMMARY | 2019-08-31 19:47 | XMS REPORT | Summary of Care ---
:1945 Author Organization [facility] Address [address] [place] [address] Care Team Providers Name Role Phone Nichelle [...] DUPLEX SCAN OF ARTERY BY VASCULAR LAB [address] [place] [phone] (Routine) Status Reason Specialty Diagnoses / Referred By Referred To Procedures Contact Contact New Request Vascular Surgery Diagnoses Peripheral arterial disease Bertha, Procedures WESLEY MULTI LEVEL BY VASCULAR LAB MD Constance [address] [place] [phone] Reason for Visit Reason Comments Follow-up 1 MO Encounter Details Date Type Department Care Team Description 08/24/2019 Office Visit [facility] Vascular Constance Stone Peripheral arterial Surgery- Babatunde EPPS disease (Primary Dx) [address] [address] [place], [place] [phone] [address] [phone] Allergies Active Allergy Reactions Severity Noted Date [...] presence not specified Miscellaneous Medical Supply Needs [facility] 100 Each 3 04/27/2019 Active MiscIndications: [...] region, Itching NEUROPATHY PAIN IN FEET. Insulin [place], Disposable, Use as directed, once a 100 [...] Comments Blood Pressure 123/69 08/24/2019 10:37 AM CHIEF METER READER Pulse 114 08/24/2019 10:37 AM CHIEF METER READER Temperature 37 C (98.6 F) 08/24/2019 10:37 AM CHIEF METER READER Respiratory Rate 18 08/24/2019 10:37 AM CHIEF METER READER Oxygen Saturation 99% 08/24/2019 10:37 AM CHIEF METER READER Inhaled Oxygen Concentration - - Weight 100.5 kg (221 lb 9.6 oz) 08/24/2019 10:37 AM CHIEF METER READER Height - - Body Mass Index 33.69 07/12/2019 8:24 AM CHIEF METER READER documented in this encounter Progress Notes Constance Stone MD - 08/24/2019 10:00 AM CSTI discussed the patient with Dr. Squires then personally examined the patient on 08/24/2019. I agree with the note as detailed by Dr. Squires. I actively participated in the decision- making process regarding the assessment and plan of care. Please see the resident's note for additional details. Constance Stone MD, [facility] Vascular Surgery Murray Land MD - 08/24/2019 [...] return in May and she went to [facility] on 06/06 and was admitted for IV [...] Arthritis all over Hyperlipidemia Hypertension Follows with biscuit factory worker Dr. Fuentes Hypothyroidism Muscle tear 2016 of right knee Type 2 diabetes mellitus Follows with coal mine inspector Dr. Andersen PAST SURGICAL HISTORY Past Surgical [...] file Gets together: Not on file Attends temple service: Not on file Active member of [...] Date Type Specialty Care Team Description 09/18/2019 Engineering Group Leader Visit Cardiology Pc, [facility] Vascular Room 1 - 09/18/2019 Engineering Group Leader Visit Cardiology Pc, Adc Vascular Room 1 - 09/27/2019 Office Visit Vascular Surgery Constance Stone MD [address] [place] [phone] Health Maintenance Due Date Last Done [...] Medicare PART A & B ent [id number] VIV[place]NA RYAN [id number] [place] [id number] 2011-Pres Medicare SOLOMON SOLOMON ent Supplement documented as of this encounter
--- OUTSIDE RECORDS SUMMARY | 2019-08-31 19:47 | XMS REPORT | Summary of Care ---
:1945 Author Organization [facility] Address [address] [place] [address] Care Team Providers Name Role Phone Nichelle Escamilla MD Primary Care Provider Michael Fontana MD Unavailable Zack Fuentes Unavailable Haseeb Cabrera DPM Unavailable Kendrick Le Unavailable Ian Dc Unavailable Remberto Su MD Unavailable Americo Arreaga MD Unavailable Reason for Visit Reason Comments Notification Encounter Details Date Type Department Care Team Description 08/18/2019 Telephone [facility] Pediatric and Nichelle Escamilla, Notification Adult Primary Care- MD Fine [address] [facility] [address] [facility] , [address] [place] [address] [place] [phone] Allergies Active Allergy Reactions Severity Noted Date Comments Ciprofloxacin Unknown - See comments 04/11/2018 Losartan Potassium Shortness of Breath, Cough High 03/22/2017 Metronidazole Unknown - See comments 04/11/2018 Macrolide Antibiotics Rash 06/11/2015 Penicillin Rash 06/11/2015 Pentoxifylline Itching, Shortness of Breath 01/15/2017 documented as of this encounter (statuses as of 08/28/2019) Medications Medication Sig Dispensed Refills Start Date [...] presence not specified Miscellaneous Medical Supply Needs [facility] 100 Each 3 04/27/2019 Active [...] region, Itching NEUROPATHY PAIN IN FEET. Insulin [place], Disposable, Use as directed, once a 100 [...] as of this encounter (statuses as of 08/28/2019) Active Problems Problem Noted Date Cellulitis of right leg 04/11/2019 Excessive daytime sleepiness 07/05/2017 Controlled type 2 diabetes mellitus without complication, with long-term 11/13 current use of insulin Essential hypertension 06/26/2015 Hyperlipidemia 06/26/2015 Hypothyroidism (acquired) 06/26/2015 documented as of this encounter (statuses as of 08/28/2019) Immunizations Name Administration Dates Next Due Influenza [...] Date Type Specialty Care Team Description 09/18/2019 Personnel Technician Visit Cardiology Pc, [facility] Vascular Room 1 - 09/18/2019 Personnel Technician Visit Cardiology Pc, Adc Vascular Room 1 - 09/27/2019 Office Visit Vascular Surgery Constance Stone MD [address] [place] [phone] Health Maintenance Due Date Last Done Comments [...] Medicare PART A & B ent [id number] VIV[place]NA RYAN [id number] [place] [id number] 2011-Pres Medicare SAMY PABLO ent Supplement documented as of this encounter
--- OUTSIDE RECORDS SUMMARY | 2019-08-31 19:48 | XMS REPORT | Summary of Care ---
:1945 Author Organization [facility] Address [address] [place] [address] Care Team Providers Name Role Phone Nichelle Escamilla MD Primary Care Provider Michael Fontana MD Unavailable Zack Fuentes Unavailable Haseeb Cabrera DPM Unavailable Kendrick Le Unavailable Ian Dc Unavailable Remberto Su MD Unavailable Americo Arreaga MD Unavailable Reason for Visit Reason Comments Refill Request Encounter Details Date Type Department Care Team Description 08/28/2019 Refill [facility] Pediatric and Nichelle Escamilla, Refill Request Adult Primary Care- MD Fine [address] [place] [address], [address] [place] [address] [place] [phone] Allergies Active Allergy Reactions Severity [...] presence not specified Miscellaneous Medical Supply Needs [facility] 100 Each 3 04/27/2019 Active MiscIndications: [...] region, Itching NEUROPATHY PAIN IN FEET. Insulin [place], Disposable, Use as directed, once a 100 [...] Date Type Specialty Care Team Description 09/18/2019 Logistic Specialist Visit Cardiology Pc, Adc Vascular Room 1 - 09/18/2019 Logistic Specialist Visit Cardiology Pc, Adc Vascular Room 1 - 09/27/2019 Office Visit Vascular Surgery Constance Stone MD [address] [place] [phone] Health Maintenance Due Date Last Done Comments [...] Medicare PART A & B ent [id number] VIV[place]NA RYAN [id number] [place] [id number] 2011-Pres Medicare SAMY PABLO ent Supplement documented as of this encounter
--- OUTSIDE RECORDS SUMMARY | 2019-08-31 19:48 | XMS REPORT | Summary of Care ---
:1945 Author Organization [facility] Address [address] [place] [address] Care Team Providers Name Role Phone Nichelle Escamilla MD Primary Care Provider Michael Fontana MD Unavailable Zack Fuentes Unavailable Haseeb Cabrera DPM Unavailable Kendrick Le Unavailable Ian Dc Unavailable Remberto Su MD Unavailable Americo Arreaga MD Unavailable Reason for Visit Reason Comments Assessment TRIAGE Encounter Details Date Type Department Care Team Description 08/28/2019 Telephone [facility] Pediatric Nichelle Escamilla Assessment (TRIAGE) and Adult Primary Care- MD Babatunde Ann [address] [place] [address] [address] [place] [address] [place] [phone] Allergies Active Allergy Reactions Severity [...] presence not specified Miscellaneous Medical Supply Needs [facility] 100 Each 3 04/27/2019 Active MiscIndications: [...] region, Itching NEUROPATHY PAIN IN FEET. Insulin [place], Disposable, Use as directed, once a 100 [...] Date Type Specialty Care Team Description 09/18/2019 Billiard Player Visit Cardiology Pc, Adc Vascular Room 1 - 09/18/2019 Billiard Player Visit Cardiology Pc, Adc Vascular Room 1 - 09/27/2019 Office Visit Vascular Surgery Constance Stone MD [address] [place] [phone] Health Maintenance Due Date Last Done Comments [...] Medicare PART A & B ent [id number] VIV[place] RYAN [id number] [place] [id number] 2011-Pres Medicare SAMY PABLO ent Supplement documented as of this encounter
--- OUTSIDE RECORDS SUMMARY | 2019-08-31 19:49 | XMS REPORT | Summary of Care ---
:1945 Author Organization [facility] Address [address] [place] [address] Care Team Providers Name Role Phone Nichelle Escamilla MD Primary Care Provider Michael Fontana MD Unavailable Zack Fuentes Unavailable Haseeb Cabrera DPM Unavailable Kendrick Le Unavailable Ian Dc Unavailable Remberto Su MD Unavailable Americo Arreaga MD Unavailable Reason for Visit Reason Comments Assessment Encounter Details Date Type Department Care Team Description 08/31/2019 Telephone [facility] Pediatric and Nichelle Escamilla, Assessment Adult Primary Care- MD Fine [address] [place] [address] Dr [address] [facility], [address] [place] [address] [place] [phone] Allergies Active Allergy Reactions Severity Noted Date Comments Ciprofloxacin Unknown - See comments 04/11/2018 Losartan Potassium Shortness of Breath, Cough High 03/22/2017 Metronidazole Unknown - See comments 04/11/2018 Macrolide Antibiotics Rash 06/11/2015 Penicillin Rash 06/11/2015 Pentoxifylline Itching, Shortness of Breath 01/15/2017 documented as of this encounter (statuses as of 08/31/2019) Medications Medication Sig Dispensed Refills Start Date [...] presence not specified Miscellaneous Medical Supply Needs [facility] 100 Each 3 04/27/2019 Active [...] region, Itching NEUROPATHY PAIN IN FEET. Insulin [place], Disposable, Use as directed, once a 100 [...] as of this encounter (statuses as of 08/31/2019) Active Problems Problem Noted Date Cellulitis of right leg 04/11/2019 Excessive daytime sleepiness 07/05/2017 Controlled type 2 diabetes mellitus without complication, with long-term 11/13 current use of insulin Essential hypertension 06/26/2015 Hyperlipidemia 06/26/2015 Hypothyroidism (acquired) 06/26/2015 documented as of this encounter (statuses as of 08/31/2019) Immunizations Name Administration Dates Next Due Influenza [...] Date Type Specialty Care Team Description 09/18/2019 Yeast Stacker Visit Cardiology Pc, Adc Vascular Room 1 - 09/18/2019 Yeast Stacker Visit Cardiology Pc, Adc Vascular Room 1 - 09/27/2019 Office Visit Vascular Surgery Constance Stone MD [address] [place] [phone] Health Maintenance Due Date Last Done Comments [...] Medicare PART A & B ent [id number] VIVIANA RYAN [id number] [place] [id number] 2011-Pres Medicare [place] ent Supplement documented as of this encounter
--- OUTSIDE RECORDS SUMMARY | 2019-08-31 19:49 | XMS REPORT | Summary of Care ---
:1945 Author Organization [facility] Address [address] [place] [id number] Care Team Providers Name Role Phone Nichelle Escamilla MD Primary Care Provider Michael Fontana MD Unavailable Zack Fuentes Unavailable Haseeb Cabrera DPM Unavailable Kendrick Le Unavailable Ian Dc Unavailable Remberto Su MD Unavailable Americo Arreaga MD Unavailable Reason for Visit Reason Comments Assessment Encounter Details Date Type Department Care Team Description 08/31/2019 Telephone [facility] Pediatric and Nichelle Escamilla, Assessment Adult Primary Care- MD Fine [address] [place] [address] [address] [facility], [address] [place] [address] [place] [phone] Allergies Active Allergy Reactions Severity [...] presence not specified Miscellaneous Medical Supply Needs [facility] 100 Each 3 04/27/2019 Active MiscIndications: Leg [...] region, Itching NEUROPATHY PAIN IN FEET. Insulin [place], Disposable, Use as directed, once a 100 [...] Date Type Specialty Care Team Description 09/18/2019 [facility] Room 1 - 09/18/2019 [facility] Visit [facility], [facility] Vascular Room 1 - 09/27/2019 Office Visit Vascular Surgery Constance Stone MD [address] [place] [phone] Health Maintenance Due Date Last Done Comments [...] Medicare PART A & B ent [id number] VIVIANA RYAN [id number] [place] [id number] 2011-Pres Medicare [place] ent Supplement documented as of this encounter
[2019-08-31] MEDS ORDERED: HOME MED 1 EA UNK (Pregabalin [Lyrica] 300 MG) PO SCH (21:00)
[2019-08-31] MEDS ORDERED: MONTELUKAST 10 MG TAB PO SCH (21:00)
[2019-08-31] MEDS ORDERED: MIDODRINE HCL 5 MG TABLET PO SCH (21:00)
[2019-08-31] MEDS ORDERED: SPIRONOLACTONE 25 MG TABLET PO SCH (21:00)
[2019-08-31] MEDS: INSULIN -REGULAR HUMAN 50 UNIT/0.5 ML ML SQ SCH (21:00)
[2019-08-31] MEDS ORDERED: PRAMIPEXOLE 0.25 MG TAB PO SCH (21:00)
[2019-08-31] MEDS ORDERED: ATORVASTATIN 10 MG TAB PO SCH (21:00)
[2019-08-31] MEDS ORDERED: METOPROLOL XL 50 MG TAB PO SCH (21:00)
[2019-08-31] MEDS: NA CHLORIDE 0.9% 1,000 ML IV SCH (21:07)
[2019-08-31] MEDS: WATER FOR INJ STERILE IV SCH ×4 (21:13→23:05)
[2019-08-31] MEDS: POTASSIUM CL IV SCH ×4 (21:13→23:05)
[2019-08-31] MEDS: PREGABALIN 150 MG CAP PO SCH (21:18)
[2019-08-31] MEDS: GUAIFENESIN 600 MG SA TAB PO SCH (21:18)
[2019-08-31] MEDS: PRAMIPEXOLE 0.25 MG TAB PO SCH (23:04)
[2019-08-31 23:31] LABS: CKMB Creatine Kinase MB < 1.0 ng/mL (0.3-3.6); Troponin I < 0.02 ng/mL (0.0-0.045)
[2019-08-31] MEDS ORDERED: DIPHENHYDRAMINE 25 MG TAB/CAP PO PRN (23:38)
[2019-08-31 23:43] VITALS: BMI 34.6
[2019-08-31] MEDS ORDERED: METOLAZONE 5 MG TABLET PO SCH (23:45)
[2019-09-01 01:54] LABS: CKMB Creatine Kinase MB < 1.0 ng/mL (0.3-3.6); Troponin I < 0.02 ng/mL (0.0-0.045)
[2019-09-01 05:45] LABS: Absolute Lymphocytes (CBC) 1.5 K/uL (0.7-4.9); Basophils % 0.3 % (0-1.3); Hematocrit 34.2 % (36.0-45.0); Lymphocytes % 15.7 % (15.3-44.8); RBC Red Blood Cell Count 4.39 M/uL (3.86-4.86)
[2019-09-01 05:59] LABS: Albumin 2.7 g/dL (3.4-5.0); Bilirubin Total 0.5 mg/dL (0.2-1.0); Protein, Total 6.3 g/dL (6.4-8.2)
[2019-09-01 06:01] LABS: Potassium 2.7 mmol/L (3.5-5.1)
[2019-09-01] MEDS ORDERED: PANTOPRAZOLE 40MG TABLET PO SCH (06:30)
[2019-09-01] MEDS ORDERED: LEVOTHYROXINE SOD 0.025 MG TAB PO SCH (06:30)
[2019-09-01] MEDS: LEVOTHYROXINE SOD 0.025 MG TAB PO SCH (07:22)
[2019-09-01] MEDS: KCL 20 MEQ/100 mL IVPB 20 MEQ/100 ML BAG IV SCH ×3 (07:23→11:29)
[2019-09-01] MEDS: NA CHLORIDE 0.9% 1,000 ML IV SCH ×3 (07:29→23:36)
[2019-09-01] MEDS: INSULIN -REGULAR HUMAN 50 UNIT/0.5 ML ML SQ SCH ×4 (07:30→20:57)
[2019-09-01] MEDS: PREGABALIN 150 MG CAP PO SCH ×2 (07:57→20:57)
[2019-09-01] MEDS: FUROSEMIDE 40 MG TABLET PO SCH (07:57)
[2019-09-01] MEDS: MIDODRINE HCL 5 MG TABLET PO SCH ×3 (07:59→17:05)
[2019-09-01] MEDS: LACTOBACILLUS/ACIDOPHILUS TAB PO SCH (07:59)
[2019-09-01] MEDS: PANTOPRAZOLE 40MG TABLET PO SCH (07:59)
[2019-09-01] MEDS: GUAIFENESIN 600 MG SA TAB PO SCH ×2 (07:59→20:56)
[2019-09-01] MEDS: Insulin Degludec [Tresiba Flextouch U-100] SQ SCH (08:00)
[2019-09-01] MEDS: HOME MED 1 EA UNK (Dapagliflozin Propanediol [Farxiga] 10 MG) PO SCH (08:00)
[2019-09-01] MEDS: POTASSIUM CL SA 10 MEQ TAB PO SCH (08:00)
[2019-09-01] MEDS ORDERED: PREGABALIN 150 MG CAP PO SCH (09:00)
[2019-09-01] MEDS ORDERED: predniSONE 10 MG TAB PO SCH (09:00)
[2019-09-01] MEDS ORDERED: KCL 10 MEQ/100 ML IVPB 10 MEQ/100 ML BAG IV SCH (09:00)
[2019-09-01] MEDS ORDERED: FERROUS SULFATE 325 MG TAB PO SCH (09:00)
[2019-09-01] MEDS ORDERED: ENOXAPARIN 40 MG/0.4 ML SQ SCH (09:00)
[2019-09-01] MEDS ORDERED: FUROSEMIDE 20 MG TABLET PO SCH (09:00)
[2019-09-01 10:24] LABS: CKMB Creatine Kinase MB 1.1 ng/mL (0.3-3.6); Troponin I < 0.02 ng/mL (0.0-0.045)
--- NOTE | 2019-09-01 11:00 | P.PN ---
Subjective Date of Service: 09/01/19 Chief Complaint: Generalized weakness Subjective: No new changes, Improving Review of Systems 10-point ROS is otherwise unremarkable Physical Examination - Vital Signs Temperature: 97.3 F Blood Pressure: 122/58 Pulse: 125 Respirations: 16 Pulse Ox (%): 97 - Physical Exam General: Alert, In no apparent distress HEENT: Atraumatic, Normocephalic Neck: Supple Respiratory: Clear to auscultation bilaterally Cardiovascular: Regular rate/rhythm, Edema Capillary refill: <2 Seconds Gastrointestinal: Soft and benign, W/out hepatosplenomegaly Musculoskeletal: No clubbing, No swelling Integumentary: No rashes Neurological: Normal speech, Other (Alert ,Awake ) Lymphatics: No axilla or inguinal lymphadenopathy External genitalia: Deferred Rectal: Deferred - Studies Laboratory Data (last 24 hrs) 08/31/19 15:11: WBC 10.6, Hgb 13.0, Hct 39.7, Plt Count 232 08/31/19 14:50: PT 12.4, INR 1.05 08/31/19 14:50: Sodium 136, Potassium 3.2 L, BUN 22 H, Creatinine 1.36 H, Glucose 226 H, Magnesium 2.1, Total Bilirubin 0.5, AST 16, ALT 18, Alkaline Phosphatase 52 Laboratory Last Values WBC 9.9 K/uL (4.3-10.9) 09/01/19 05:24 RBC 4.39 M/uL (3.86-4.86) 09/01/19 05:24 Hgb 11.3 g/dL (12.0-15.0) L 09/01/19 05:24 Hct 34.2 % (36.0-45.0) L 09/01/19 05:24 MCV 77.9 fL (80-100) L 09/01/19 05:24 MCH 25.6 pg (27.0-35.0) L 09/01/19 05:24 MCHC 32.9 g/dL (32.0-36.0) 09/01/19 05:24 RDW 18.1 % (12.1-15.2) H 09/01/19 05:24 Plt Count 185 K/uL (152-406) D 09/01/19 05:24 MPV 9.0 fL (7.6-11.3) 09/01/19 05:24 Neutrophils % 71.0 % (41.7-73.7) 09/01/19 05:24 Lymphocytes % 15.7 % (15.3-44.8) 09/01/19 05:24 Monocytes % 8.3 % (3.3-12.3) 09/01/19 05:24 Eosinophils % 4.7 % (0-4.4) H 09/01/19 05:24 Basophils % 0.3 % (0-1.3) 09/01/19 05:24 Absolute Neutrophils 7.0 K/uL (1.8-8.0) 09/01/19 05:24 Absolute Lymphocytes 1.5 K/uL (0.7-4.9) 09/01/19 05:24 Absolute Monocytes 0.8 K/uL (0.1-1.3) 09/01/19 05:24 Absolute Eosinophils 0.5 K/uL (0-0.5) 09/01/19 05:24 Absolute Basophils 0.0 K/uL (0-0.5) 09/01/19 05:24 PT 12.4 SECONDS (9.5-12.5) 08/31/19 14:50 INR 1.05 08/31/19 14:50 Sodium 139 mmol/L (136-145) 09/01/19 05:24 Potassium 2.7 mmol/L (3.5-5.1) L* 09/01/19 05:24 Chloride 100 mmol/L (98-107) 09/01/19 05:24 Carbon Dioxide 31 mmol/L (21-32) 09/01/19 05:24 BUN 22 mg/dL (7-18) H 09/01/19 05:24 Creatinine 1.14 mg/dL (0.55-1.3) 09/01/19 05:24 Estimated GFR 47 mL/min (=/>90) L 09/01/19 05:24 Glucose 125 mg/dL (74-106) H 09/01/19 05:24 POC Glucose 135 mg/dl (65-120) H 09/01/19 07:52 Lactic Acid 1.5 mmol/L (0.4-2.0) 08/31/19 14:50 Calcium 8.6 mg/dL (8.5-10.1) D 09/01/19 05:24 Magnesium 2.1 mg/dL (1.8-2.4) 08/31/19 14:50 Total Bilirubin 0.5 mg/dL (0.2-1.0) 09/01/19 05:24 Direct Bilirubin 0.2 mg/dL (0-0.2) 08/31/19 14:50 AST 12 U/L (15-37) L 09/01/19 05:24 ALT 13 U/L (12-78) 09/01/19 05:24 Alkaline Phosphatase 37 U/L (45-117) L 09/01/19 05:24 CK-MB (CK-2) 1.1 ng/mL (0.3-3.6) 09/01/19 09:45 Rapid Troponin I < 0.02 ng/mL (0.0-0.045) 08/31/19 14:50 Troponin I < 0.02 ng/mL (0.0-0.045) 09/01/19 09:45 NT-Pro-B Natriuret Pep 278 pg/mL (<125) H 08/31/19 14:50 Serum Total Protein 6.3 g/dL (6.4-8.2) L 09/01/19 05:24 Albumin 2.7 g/dL (3.4-5.0) L 09/01/19 05:24 Globulin 3.6 g/dL (2.3-3.5) H D 09/01/19 05:24 Albumin/Globulin Ratio 0.8 (1.1-1.8) L 09/01/19 05:24 Procalcitonin 0.06 ng/mL (<0.50) 08/31/19 14:50 TSH 3.320 uIU/mL (0.360-3.740) 08/31/19 Unknown Urine pH 7.0 (5.0-7.0) 08/31/19 Unknown Ur Specific [place] 1.015 (1.005-1.030) 08/31/19 Unknown Glucose (UA)(Auto) 2+ (NEG) H 08/31/19 Unknown Urine Ketones Negative (NEG) 08/31/19 Unknown Urine Blood Negative (NEG) 08/31/19 Unknown Urine Nitrite Negative (NEG) 08/31/19 Unknown Ur Leukocyte Esterase Trace (NEG) H 08/31/19 Unknown Urine Total Protein Negative (NEG) 08/31/19 Unknown Microbiology Data (last 24 hrs): 08/31/19 15:12 Nasopharnyx Influenza Type A Antigen Screen - Final 08/31/19 15:12 Nasopharnyx Influenza Type B Antigen Screen - Final Assessment & Plan - Problems (Diagnosis) (1) Acute renal insufficiency Current Visit: Yes Status: Acute (2) Dehydration Current Visit: Yes Status: Acute (3) Diabetes Current Visit: No Status: Chronic Qualifiers: (4) Hypertension Onset Date: 04/12/17 Current Visit: No Status: Chronic Qualifiers: (5) Lymphedema Current Visit: No Status: Chronic (6) PAD (peripheral artery disease) Current Visit: No Status: Chronic (7) Restless leg syndrome Onset Date: 04/12/17 Current Visit: No Status: Chronic Plan: Hypokalemia Acute renal insufficiency Dehydration Tachycardia Diabetes Restless leg syndrome Chronic cough Plan Monitor under telemetry replace potassium Moderate hydration monitor renal parameters Still tachycardia will consult cardiology Patient follows with Dr. Fuentes as outpatient Continue home medications and titrate as needed will hold diuretics for now GI/DVT prophylaxis Advanced directives full code Time Spent Managing Pts Care (In Minutes): 42
--- NOTE | 2019-09-01 11:01 | EKG ---
Test Date: 2019-08-31 Test Time: 14:29:58 Health Education Specialist: MEENU MEASUREMENT RESULTS: Intervals: Rate: 118 MN: QRSD: 90 QT: 386 QTc: 541 [place]: P: MN: QRS: -66 T: 89 INTERPRETIVE STATEMENTS: sinus tach Left axis deviation Anteroseptal infarct, age undetermined Abnormal ECG Compared to ECG 06/09/2019 19:44:38 Myocardial infarct finding still present Electronically Signed On 09-01-19 11:00:26 [employer] by Kamaljit Casiano
--- NOTE | 2019-09-01 13:36 | CON ---
Date of Consultation: 09/01/[address] Akins on 08/31/2019. I saw the patient on 09/01/2019. Reason For Consultation: Hypotension, acute kidney injury, history of peripheral arterial disease, a nd cerebral vascular disease. History Of Present Illness: Ms. Bran is a 73-year-old white woman. She has an extensive past medi shine history including diabetes, gastroesophageal reflux disease, hypothyroidism, hypertension, dyslip idemia, COPD. She has a history of cerebrovascular disease. Carotid angiography in November of 2018 show ed less than 50% bilateral carotid. She also has abnormal arterial Doppler with severe peripheral ar terial disease. Apparently, has seen Dr. Stone who is planning to do another arterial Doppler on er in the near future. She normally sees Dr. Escamilla, but now is going to be seeing Keri Nesha Jeronimo choudhary in the near future. She was taking multiple medications at home that she was confused about, came in hypotensive, elevated creatinine with hypokalemia, has had cough and some shortness of breath but no chest pain. Past Medical History: As stated earlier. Allergies: TO CIPROFLOXACIN, ERYTHROMYCIN, LOSARTAN, AND PENICILLIN. Review of Systems: Negative. Social History: Negative. Family History: Negative. Medications: At home include Lasix, metolazone, Protonix, potassium, Farxiga, insulin, Neurontin, an d Synthroid. Physical Examination: General: She is very pleasant and feeling better. Vital Signs: Blood pressure has improved. It is normal now. She is in sinus rhythm. Afebrile. HEENT: Negative. Neck: Supple with no bruit, lymphadenopathy, JVD or thyromegaly. Chest: Clear to auscultation and percussion. Cardiac: Revealed a regular rhythm and rate. No murmurs, gallops, or rubs. Abdomen: Obese, but benign. Extremities: Revealed trace edema. She had no pulses in the dorsalis pedis and posterior tibial. Skin: Dry and intact. Neurologic: She was nonfocal. Psychologic: She was normal. Diagnostic Data: EKG shows sinus tachycardia with left axis deviation and old septal infarct. Potas sium is 2.7, creatinine is 1.14, glucose is 135. Impression And Plan: 1.Hypotension and hypokalemia and renal insufficiency. I think all of them are secondary to the com bination of Lasix and metolazone. I will definitely discontinue her metolazone. Ms. Bran has had normal echocardiogram before and I certainly would not repeat any cardiac workup on her at this point . She may have chronic diastolic congestive heart failure that seems to be stable at this point. 2.Diabetes. 3.Gastroesophageal reflux disease. 4.Hypothyroidism. 5.Neuropathy. 6.Cerebrovascular disease with 50% bilateral carotid that needs to be followed up in about a year or so. Lastly, she has severe peripheral arterial disease, is being handled by Dr. Stone at [facility]. She has an appointment with her coming up soon for another arterial Doppler. From a cardiac standpoint at least during this admission, I would continue her home medications except I would disc ontinue the metolazone. She can go home whenever it is okay with Dr. Akins. We will see her as an o utpatient. She really should have a carotid Doppler in November 2019. She should also have an outpatient Lexiscan and I will leave her peripheral arterial disease to Dr. Stone. AMRIT/CANDIS Voice ID: [id number] Report ID: [id number]
[2019-09-01] MEDS ORDERED: RIVAROXABAN 20 MG TABLET PO SCH (17:00)
[2019-09-01] MEDS: PRAMIPEXOLE 0.25 MG TAB PO SCH (20:57)
[2019-09-01] MEDS ORDERED: LATANOPROST EACH EYE SCH (21:00)
[2019-09-01] MEDS ORDERED: PRAMIPEXOLE DI HCL 0.75 MG PO SCH (21:00)
[2019-09-01] MEDS ORDERED: POTASSIUM 25 MEQ EFFERV TAB PO ONE (21:00)
[2019-09-02] MEDS: NA CHLORIDE 0.9% 1,000 ML IV SCH ×2 (05:00→10:29)
[2019-09-02] MEDS: LEVOTHYROXINE SOD 0.025 MG TAB PO SCH (05:31)
[2019-09-02 06:57] LABS: Potassium 3.2 mmol/L (3.5-5.1)
[2019-09-02 06:58] LABS: Absolute Lymphocytes (CBC) 1.9 K/uL (0.7-4.9); Basophils % 0.3 % (0-1.3); Lymphocytes % 22.5 % (15.3-44.8); MPV 8.9 fL (7.6-11.3); RBC Red Blood Cell Count 4.35 M/uL (3.86-4.86)
[2019-09-02] MEDS: Insulin Degludec [Tresiba Flextouch U-100] SQ SCH (09:00)
[2019-09-02] MEDS: POTASSIUM CL SA 10 MEQ TAB PO SCH (09:00)
[2019-09-02] MEDS: HOME MED 1 EA UNK (Dapagliflozin Propanediol [Farxiga] 10 MG) PO SCH (09:00)
[2019-09-02] MEDS: PANTOPRAZOLE 40MG TABLET PO SCH (09:18)
[2019-09-02] MEDS: INSULIN -REGULAR HUMAN 50 UNIT/0.5 ML ML SQ SCH ×2 (09:18→12:04)
[2019-09-02] MEDS: LACTOBACILLUS/ACIDOPHILUS TAB PO SCH (09:19)
[2019-09-02] MEDS: FUROSEMIDE 40 MG TABLET PO SCH (09:19)
[2019-09-02] MEDS: PREGABALIN 150 MG CAP PO SCH (09:19)
[2019-09-02] MEDS: GUAIFENESIN 600 MG SA TAB PO SCH (09:20)
[2019-09-02] MEDS: MIDODRINE HCL 5 MG TABLET PO SCH ×2 (09:20→13:21)
[2019-09-02 09:27] VITALS: O2SAT 94
[2019-09-02] MEDS ORDERED: POTASSIUM 25 MEQ EFFERV TAB PO ONE (11:00)
--- NOTE | 2019-09-02 11:32 | P.DS ---
Admission Date: 08/31/19 Discharge Date: 09/02/19 Disposition: DC HOME/HOME HEALTH CARE Discharge Condition: GOOD Reason for Admission: Generalized weakness Consultations: Cardiology-Dr. 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 She had elevated creatinine and low potassium in the ED. The patient was hospitalized for hypotension, acute renal failure and hypokalemia. Hospital Course: Patient placed under observation. She was hydrated with IV normal saline, and potassium replaced. Patient was tachycardic during the hospital stay. Cardiology was consulted, she was seen by Dr. Casiano who recommended outpatient workup with Lexiscan stress test. He also recommended patient to stop taking metolazone. She also has peripheral arterial disease which is being managed at [facility]. 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 The patient has been referred to see Dr. Womack for further evaluation for the chronic cough. Patient blood pressure has been stable. Potassium has been replaced. Acute renal failure has resolved. The patient is discharged to complete the followup test as mentioned above. Vital Signs/Physical Exam: Temp Pulse Resp BP Pulse Ox 97.6 F 121 H 18 116/56 L 96 09/02/19 08:00 09/02/19 08:00 09/02/19 08:00 09/02/19 08:00 09/02/19 08:00 General: Alert, In no apparent distress, Oriented x3 HEENT: Mucous membr. moist/pink, Sclerae nonicteric Neck: Supple, JVD not distended Respiratory: Clear to auscultation bilaterally, Normal air movement Cardiovascular: Regular rate/rhythm, Normal S1 S2, Edema (Trace bilateral lower extremity pitting edema) Capillary refill: <2 Seconds Gastrointestinal: Normal bowel sounds, Soft and benign, No tenderness Musculoskeletal: Erythema (Bilateral legs) Integumentary: Erythema (Bilateral Legs.) Neurological: Normal speech, Normal strength at 5/5 x4 extr Laboratory Data at Discharge: WBC 8.6 K/uL (4.3-10.9) 09/02/19 06:01 Hgb 11.0 g/dL (12.0-15.0) L 09/02/19 06:01 Hct 34.0 % (36.0-45.0) L 09/02/19 06:01 Plt Count 186 K/uL (152-406) 09/02/19 06:01 PT 12.4 SECONDS (9.5-12.5) 08/31/19 14:50 INR 1.05 08/31/19 14:50 Sodium 139 mmol/L (136-145) 09/02/19 06:01 Potassium 3.2 mmol/L (3.5-5.1) L 09/02/19 06:01 BUN 16 mg/dL (7-18) 09/02/19 06:01 Creatinine 0.99 mg/dL (0.55-1.3) 09/02/19 06:01 Glucose 148 mg/dL (74-106) H 09/02/19 06:01 Phosphorus 3.0 mg/dL (2.5-4.9) 09/02/19 06:01 Magnesium 2.1 mg/dL (1.8-2.4) 08/31/19 14:50 Total Bilirubin 0.5 mg/dL (0.2-1.0) 09/01/19 05:24 AST 12 U/L (15-37) L 09/01/19 05:24 ALT 13 U/L (12-78) 09/01/19 05:24 Alkaline Phosphatase 37 U/L (45-117) L 09/01/19 05:24 Troponin I < 0.02 ng/mL (0.0-0.045) 09/01/19 09:45 Home Medications: Dapagliflozin Propanediol [Farxiga] 10 mg PO DAILY 08/31/19 Diphenhydramine HCl [Banophen] 25 mg PO Q6HP PRN 08/31/19 Furosemide 40 mg PO DAILY 08/31/19 Hydrocortisone Cream [Hydrocortisone 1% Cream*] 1 lindsey TOP DAILY PRN 08/31/19 Insulin Aspart [Novolog Flexpen] 2 units SQ PRN 08/31/19 Insulin Degludec [Tresiba Flextouch U-100] 68 units SQ DAILY 08/31/19 Lactobacillus Acidophilus [Acidophilus] 1 cap PO DAILY 08/31/19 Latanoprost Ophth [Xalatan 0.005%*] 1 gtt EACH EYE BEDTIME 08/31/19 Levothyroxine Sodium 25 mcg PO DAILY 08/31/19 Midodrine HCl 5 mg PO TID 08/31/19 Pantoprazole [Protonix Tab*] 40 mg PO DAILY 08/31/19 Potassium Chloride [Klor-Con] 20 meq PO DAILY 08/31/19 Pramipexole Di-HCl [Pramipexole ER] 0.75 mg PO BEDTIME 08/31/19 Pregabalin 300 mg PO BID 08/31/19 traMADol HCL [Ultram*] 50 mg PO Q6HP PRN 08/31/19 Diet: ADA Activity: Ad carl Followup: Reyes Womack MD [ACTIVE - CAN ADMIT] - 1-2 Weeks (please call to make an appointment. ) Zack Fuentes MD [ACTIVE - CAN ADMIT] - 1-2 Weeks (please call to make an appointment. ) Time spent managing pt's care (in minutes): 36
[2019-09-02 12:32] VITALS: BP 101/61; TEMP 97.2
== END 2019-09-02 16:15 | disposition home or self-care (01) | DRG 682 ==
LOC: ER 14:01 → OBSVTOIN 17:18 → ERHOLD 17:18 → 2ND 18:21 → INTOOBSV 09-02 10:47 → OBSVTOIN 09-02 10:47
PROVIDERS: ADMIT Family Medicine; ATTEND Internal Medicine
DX: N17.9 Acute kidney failure, unspecified (principal); R57.1 Hypovolemic shock; E87.6 Hypokalemia; E11.9 Type 2 diabetes mellitus without complications; I10 Essential (primary) hypertension; E78.5 Hyperlipidemia, unspecified; E03.9 Hypothyroidism, unspecified; G62.9 Polyneuropathy, unspecified; H40.9 Unspecified glaucoma; I48.91 Unspecified atrial fibrillation; N28.9 Disorder of kidney and ureter, unspecified; I89.0 Lymphedema, not elsewhere classified; I73.9 Peripheral vascular disease, unspecified; G25.81 Restless legs syndrome; I95.9 Hypotension, unspecified
CPT/HCPCS: 36415; 71045; 80048; 80053; 80076; 81003; 82553; 82947; 83605; 83735; 83880; 84100; 84132; 84145; 84443; 84484; 85025; 85610; 87040; 87077; 87086; 87088; 87186; 87804; 93005; 94760; 96360; 96361; 99285; G0378; J3480; J7030; J7040

== ENCOUNTER 2021-05-08 09:30 | Inpatient (IN) | payer OTHER ==
[2021-05-08] MEDS ORDERED: ACETAMINOPHEN 500 MG TAB ONE (09:38)
[2021-05-08] MEDS ORDERED: CEFEPIME 1 GM/VIAL ONE ×2 (10:07→10:37)
[2021-05-08] MEDS ORDERED: NA CHLORIDE 0.9% 2,000 ML ONE ×2 (10:08→10:38)
[2021-05-08] MEDS ORDERED: NA CHLORIDE 0.9% 100 ML ONE ×2 (10:08→10:38)
[2021-05-08 10:11] LABS: Absolute Lymphocytes (CBC) 0.4 K/uL (0.7-4.9); Basophils % 0.2 % (0-1.3); Hematocrit 38.3 % (36.0-45.0); MPV 8.5 fL (7.6-11.3); RBC Red Blood Cell Count 4.83 M/uL (3.86-4.86)
[2021-05-08] MEDS ORDERED: VANCOMYCIN/NS 1 gm 1 GM/250 ML BAG IV ONE (10:30)
--- NOTE | 2021-05-08 10:30 | RAD REPORT ---
EXAM DESCRIPTION: RAD - Chest Single View - 05/08/2021 10:21 am CLINICAL HISTORY: CONGESTION Chest pain. COMPARISON: Chest Single View dated 08/31/2019; Chest Single View dated 06/17/2019; Chest Single View dated 06/16/2019; Chest Single View dated 06/09/2019 FINDINGS: Portable technique limits examination quality. The lungs are grossly clear. The heart is mildly enlarged in size. No displaced fractures.Cervical sp ine hardware plate. IMPRESSION: No acute intrathoracic process suspected.
[2021-05-08 10:35] LABS: Protime INR 1.14
--- NOTE | 2021-05-08 10:35 | RAD REPORT ---
EXAM DESCRIPTION: CT - [id number] - 05/08/2021 10:10 am CLINICAL HISTORY: Trauma, head and neck injury. fall last night, vomiting COMPARISON: No comparisons TECHNIQUE: Axial 5 mm thick images of the head were obtained. Axial 2 mm thick images of the cervical spine were obtained with sagittal and coronal reconstruction images generated and reviewed. All CT scans are performed using dose optimization technique as appropriate and may include automated exposure control or mA/KV adjustment according to patient size. FINDINGS: CT HEAD WITHOUT CONTRAST: No acute hemorrhage, hydrocephalus or extra-axial collection is identified.No areas of brain edema or midline shift. The paranasal sinuses and mastoids are clear.The calvarium is intact. Bilateral vertebral atheroscler osis. CT CERVICAL SPINE WITHOUT CONTRAST: No fracture or subluxation.Prominent osteophyte is seen projecting from the C3 vertebral body posteri ysabel and superiorly.Fusion hardware is present spanning C5-7. IMPRESSION: No acute intracranial or cervical spine findings.
--- NOTE | 2021-05-08 10:37 | RAD REPORT ---
EXAM DESCRIPTION: CT - Spine Lumbar Wo Con - 05/08/2021 10:11 am CLINICAL HISTORY: Radiculopathy. PAIN COMPARISON: No comparisons TECHNIQUE: Axial noncontrast CT imaging of the lumbar spine was performed with coronal and sagittal re-formatted images. All CT scans are performed using dose optimization technique as appropriate and may include automated exposure control or mA/KV adjustment according to patient size. FINDINGS: No acute lumbar spine fracture seen. No aggressive marrow pattern or malalignment. Paraspinal tissues are normal in thickness. No paraspinal abscess or hematoma seen. Mild disc thinning is present throughout the lumbar spine. Mild degenerative spondylosis is seen with posterior disc bulging and moderate central canal stenosis. A severe canal stenosis is possible at L 3-4. IMPRESSION: No acute lumbar spine abnormality is seen. Multilevel spondylosis is present with possible severe stenosis at L3-4. Follow-up non-emergent MRI o f the lumbar spine would be recommended.
[2021-05-08] MEDS ORDERED: FENTANYL CITR 100 MCG/2 ML ONE (10:38)
[2021-05-08 10:43] LABS: Albumin 3.3 g/dL (3.4-5.0); Bilirubin Direct 0.2 mg/dL (0-0.2); Bilirubin Total 0.5 mg/dL (0.2-1.0); C-Reactive Protein 45.3 mg/L (<3.00); CKMB Creatine Kinase MB 1.1 ng/mL (1.0-3.6); Potassium 4.2 mmol/L (3.5-5.1); Troponin (Emerg Dept Use Only) 0.12 ng/mL (0.0-0.045)
--- NOTE | 2021-05-08 11:13 | RAD REPORT ---
EXAM DESCRIPTION: US - Extremity Venous Uni Ltd - 05/08/2021 11:01 am CLINICAL HISTORY: PAIN Leg swelling and edema. COMPARISON: Extrem Venous W Compress Jeevan dated 04/04/2019 FINDINGS: Right lower extremity venous system was interrogated with Doppler technique. DVT is seen i n the mid and distal right femoral vein. IMPRESSION: Positive for DVT right mid and distal femoral vein.
--- NOTE | 2021-05-08 11:54 | EDPHYS ---
Physician Documentation [facility] Name: Stephany Bran Age: 75 yrs Sex: Female : 1945 Arrival Date: 05/08/2021 Time: 09:32 Bed 4 Private MD: ED Physician Sam Scherer HPI: 05/08 11:46 This 75 yrs old Female presents to ER via EMS with complaints of Fall Injury. ma2 11:46 Details of fall: The patient fell from an upright position. Onset: The symptoms/episode ma2 began/occurred gradually, 1 day(s) ago. Severity of symptoms: At their worst the symptoms were moderate, in the emergency department the symptoms are unchanged. The patient has experienced similar episodes in the past. patient has chronic R LE dvt and bilateral leg cellulitis, here with fever and feeling sick, pain all over, she also fell and hit her head. Historical: - Allergies: 09:38 Ciprofloxacin; bp 09:38 Demerol; bp 09:38 Erythromycin; bp 09:38 Losartan; bp 09:38 MACROLIDES; bp 09:38 metronidazole; bp 09:38 PENICILLINS; bp 09:38 pentoxifylline; bp - Home Meds: 09:38 Tresiba FlexTouch U-100 subcutaneous [Active]; furosemide 40 mg oral tab 1 tab once bp daily [Active]; midodrine 5 mg oral tab 1 tabs 3 times per day [Active]; pregabalin 300 mg Oral cap 1 cap 2 times per day [Active]; Farxiga 10 mg oral tab 1 tab once daily [Active]; ferrous sulfate 325 mg (65 mg iron) oral TbEC 325 mg daily [Active]; potassium chloride 20 mEq Oral TbER 1 tab once daily [Active]; aspirin 81 mg Oral chew 1 tab once daily [Active]; pravastatin 40 mg oral tab 1 tab once daily [Active]; pramipexole 0.75 mg oral Tb24 1 tab once daily [Active]; levothyroxine 25 mcg oral tab 1 tab once daily [Active]; - PMHx: 09:38 Bronchitis; Hypothyroidism; Hypertension; Hyperlipidemia; Diabetes - NIDDM; bp - Immunization history:: Client reports receiving the 2nd dose of the Covid vaccine. - Social history:: Smoking status: Patient denies any tobacco usage or history of. Patient/guardian denies using alcohol, street drugs, The patient lives with family. - Family history:: not pertinent. ROS: 11:46 Constitutional: Negative for fever, chills, and weight loss. ma2 11:46 All other systems are negative. Exam: 11:46 Constitutional: This is a well developed, well nourished patient who is awake, alert, ma2 and in no acute distress. Head/Face: Normocephalic, atraumatic. Eyes: Pupils equal round and reactive to light, extra-ocular motions intact. Lids and lashes normal. Conjunctiva and sclera are non-icteric and not injected. Cornea within normal limits. Periorbital areas with no swelling, redness, or edema. ENT: Nares patent. No nasal discharge, no septal abnormalities noted. Tympanic membranes are normal and external auditory canals are clear. Oropharynx with no redness, swelling, or masses, exudates, or evidence of obstruction, uvula midline. Mucous membranes moist. Neck: Trachea midline, no thyromegaly or masses palpated, and no cervical lymphadenopathy. Supple, full range of motion without nuchal rigidity, or vertebral point tenderness. No Meningismus. Chest/axilla: Normal chest wall appearance and motion. Nontender with no deformity. No lesions are appreciated. Cardiovascular: Regular rate and rhythm with a normal S1 and S2. No gallops, murmurs, or rubs. Normal PMI, no JVD. No pulse deficits. Respiratory: Lungs have equal breath sounds bilaterally, clear to auscultation and percussion. No rales, rhonchi or wheezes noted. No increased work of breathing, no retractions or nasal flaring. Abdomen/GI: Soft, non-tender, with normal bowel sounds. No distension or tympany. No guarding or rebound. No evidence of tenderness throughout. Skin: Warm, dry with normal turgor. Normal color with no rashes, no lesions, and no evidence of cellulitis. MS/ Extremity: right leg swelling an ddvt, there is also diffuse cellulitis of both leg r>L, no clinical abscess or necrotising facietitis, otherwise Pulses equal, no cyanosis. Neurovascular intact. Full, normal range of motion. Neuro: Awake and alert, GCS 15, oriented to person, place, time, and situation. Cranial nerves II-XII grossly intact. Motor strength 5/5 in all extremities. Sensory grossly intact. Cerebellar exam normal. Normal gait. Vital Signs: 09:36 BP 126 / 50; Temp 98.9; Weight 108.86 kg; Height 5 ft. 2 in. (157.48 cm); bp 09:36 BP 136 / 99; Pulse 104; Resp 15; Temp 102.7; Pulse Ox 97% on R/A; bp 11:15 Pulse 108; Resp 15; Temp 98.3; jl7 11:33 BP 117 / 67; Pulse 107; Resp 15; Pulse Ox 99% on 2 lpm NC; jl7 09:36 Body Mass Index 43.90 (108.86 kg, 157.48 cm) bp MDM: 09:32 Patient medically screened. me2 11:46 Differential diagnosis: closed head injury, sprain, strain, sepsis with bilateral LE ma2 cellulitis and chronic dvt . Data reviewed: vital signs, nurses notes. Counseling: I had a detailed discussion with the patient and/or guardian regarding: the historical points, exam findings, and any diagnostic results supporting the discharge/admit diagnosis, the presence of at least one elevated blood pressure reading (>120/80) during this emergency department visit, the need for further work-up and treatment in the hospital. Response to treatment: the patient's symptoms have markedly improved after treatment. 05/08 09:34 Order name: Amylase, Serum [facility] 05/08 09:34 Order name: Basic Metabolic Panel [facility] 05/08 09:34 Order name: Blood Culture Adult (2) [facility] 05/08 09:34 Order name: C-Reactive Protein; Complete Time: 11:18 [facility] 05/08 09:34 Order name: CBC with Diff [facility] 05/08 09:34 Order name: CPK; Complete Time: 11:18 [facility] 05/08 09:34 Order name: Ckmb; Complete Time: 11:18 [facility] 05/08 09:34 Order name: LFT's; Complete Time: 11:18 [facility] 05/08 09:34 Order name: Lactate; Complete Time: 11:18 [facility] 05/08 09:34 Order name: Lipase; Complete Time: 11:18 [facility] 05/08 09:34 Order name: Procalcitonin; Complete Time: 11:18 [facility] 05/08 09:34 Order name: Protime (+inr); Complete Time: 11:18 ma2 05/08 09:34 Order name: Ptt, Activated; Complete Time: 11:18 ma2 05/08 09:34 Order name: Troponin (emerg Dept Use Only); Complete Time: 11:18 ma2 05/08 09:34 Order name: Urine Microscopic Only ma2 05/08 09:34 Order name: Chest Single View XRAY; Complete Time: 11:18 ma2 05/08 09:34 Order name: SARS-COV-2 RT PCR (Document "Date of Onset" if Symptomatic) ma2 05/08 09:34 Order name: Extremity Venous Uni Ltd US; Complete Time: 11:18 ma2 05/08 09:34 Order name: Amylase; Complete Time: 11:18 EDMS 05/08 09:34 Order name: Basic Metabolic Panel; Complete Time: 11:18 EDMS 05/08 09:50 Order name: CT Head C Spine; Complete Time: 11:18 05/08 10:05 Order name: CT Lumbar Spine Wo Con; Complete Time: 11:18 ma2 05/08 11:53 Order name: Lower Extremity W/ Cont EDMS 05/08 12:55 Order name: CBC Smear Scan EDMS 05/08 14:47 Order name: Lactate Sepsis 2 HR Follow-up EDMS 05/08 09:34 Order name: Accucheck; Complete Time: 10:03 ma2 05/08 09:34 Order name: Cardiac monitoring; Complete Time: 09:38 ma2 05/08 09:34 Order name: EKG - Nurse/Tech; Complete Time: 11:14 ma2 05/08 09:34 Order name: IV Saline Lock - Large Bore; Complete Time: 10:02 ma2 05/08 09:34 Order name: Labs collected and sent; Complete Time: 10:03 ma2 05/08 09:34 Order name: O2 Per Protocol; Complete Time: 10:03 ma2 05/08 09:34 Order name: O2 Sat Monitoring; Complete Time: 10:03 ma2 Administered Medications: 09:55 Drug: Acetaminophen 1000 mg Route: PO; jl7 11:18 Follow up: Response: Temperature is decreased bp 10:25 Drug: NS 0.9% (30 ml/kg) 30 ml/kg Route: IV; Rate: bolus; Site: left forearm; jl7 12:00 Follow up: Response: No adverse reaction; IV Status: Completed infusion; IV Intake: jl7 2000ml ; 2,000 per ERD 10:25 Drug: Cefepime 1 grams Route: IVPB; Rate: 200 ml/hr; Infused Over: 30 mins; Site: left jl7 forearm; 10:55 Follow up: Response: No adverse reaction; IV Status: Completed infusion jl7 11:00 Drug: vancoMYCIN 1 grams Route: IVPB; Infused Over: 2 hrs; Site: left forearm; bp 13:00 Follow up: Response: No adverse reaction; IV Status: Completed infusion jl7 11:00 Drug: fentaNYL (PF) 50 mcg Route: IVP; Site: left forearm; bp 11:50 Follow up: Response: Pain is decreased bp 12:05 Drug: Dilaudid (HYDROmorphone) 1 mg Route: IVP; Site: left forearm; jl7 12:30 Follow up: Response: No adverse reaction; Pain is decreased jl7 Disposition Summary: 05/08/21 11:53 Hospitalization Ordered Hospitalization Status: Inpatient Admission ma2 Provider: Jason Mckinney Location: Telemetry/MedSur (Inpatient) ma2 Condition: Stable ma2 Problem: new ma2 Symptoms: are unchanged ma2 Bed/Room Type: Standard [facility] Room Assignment: [facility](05/08/21 13:59) Diagnosis - Sepsis, unspecified organism - cellulitis both legs, DVT right LE ma2 - Elevated white blood cell count, unspecified - elevated troponin ma2 Forms: - Medication Reconciliation Form ma2 - SBAR form ma2 Signatures: Dispatcher [employer] EDCA Aruna Taylor RN RN Jesusita Maher RN RN jl7 Peltier, Brian, RN RN Sam Leyva MD MD ma2 Corrections: (The following items were deleted from the chart) 10:10 09:50 Head Brain Wo Cont+CT.RAD.BRZ ordered. EDMS EDMS 12:20 11:52 Lower Extremity W/ Cont ordered. EDMS EDMS 13:59 11:53 ma2 dw
--- NOTE | 2021-05-08 11:54 | ER ---
Nurse's Notes [facility] Name: Stephany Bran Age: 75 yrs Sex: Female : 1945 Arrival Date: 05/08/2021 Time: 09:32 Bed 4 Private MD: Diagnosis: Sepsis, unspecified organism-cellulitis both legs, DVT right LE;Elevated white blood cell count, unspecified-elevated troponin Presentation: 05/08 09:36 Chief complaint: EMS states: 3 YEARS OF BLE EDEMA AND CELLULITIS, WITH HEADACHE TODAY. bp Coronavirus screen: At this time, the client does not indicate any symptoms associated with coronavirus-19. Ebola Screen: No symptoms or risks identified at this time. Initial Sepsis Screen: Does the patient meet any 2 criteria? Temp <36.0*C (96.8*F)) or > 38.3*C (100.9*F). HR > 90 bpm. Yes Does the patient have a suspected source of infection? Yes: Skin breakdown/wound If YES to both, name of provider notified: Sam Scherer MD Risk Assessment: Do you want to hurt yourself or someone else? Patient reports no desire to harm self or others. Onset of symptoms is unknown. Care prior to arrival: Glucose check: 186. 09:36 Method Of Arrival: EMS: [facility] bp 09:36 Acuity: NGA 2 bp Triage Assessment: 09:36 General: Appears distressed, uncomfortable, obese, Behavior is cooperative, appropriate bp for age, agitated, anxious. Pain: Complains of pain in head, right leg and left leg. EENT: No deficits noted. Neuro: Level of Consciousness is awake, alert, obeys commands, Oriented to Appropriate for age. Cardiovascular: No deficits noted. Respiratory: No deficits noted. GI: Abdomen is obese. : No signs and/or symptoms were reported regarding the genitourinary system. Derm: Skin is red, Skin temperature is hot BLE. Musculoskeletal: Swelling present in right leg and left leg. Historical: - Allergies: 09:38 Ciprofloxacin; bp 09:38 Demerol; bp 09:38 Erythromycin; bp 09:38 Losartan; bp 09:38 MACROLIDES; bp 09:38 metronidazole; bp 09:38 PENICILLINS; bp 09:38 pentoxifylline; bp - Home Meds: 09:38 Tresiba FlexTouch U-100 subcutaneous [Active]; furosemide 40 mg oral tab 1 tab once bp daily [Active]; midodrine 5 mg oral tab 1 tabs 3 times per day [Active]; pregabalin 300 mg Oral cap 1 cap 2 times per day [Active]; Farxiga 10 mg oral tab 1 tab once daily [Active]; ferrous sulfate 325 mg (65 mg iron) oral TbEC 325 mg daily [Active]; potassium chloride 20 mEq Oral TbER 1 tab once daily [Active]; aspirin 81 mg Oral chew 1 tab once daily [Active]; pravastatin 40 mg oral tab 1 tab once daily [Active]; pramipexole 0.75 mg oral Tb24 1 tab once daily [Active]; levothyroxine 25 mcg oral tab 1 tab once daily [Active]; - PMHx: 09:38 Bronchitis; Hypothyroidism; Hypertension; Hyperlipidemia; Diabetes - NIDDM; bp - Immunization history:: Client reports receiving the 2nd dose of the Covid vaccine. - Social history:: Smoking status: Patient denies any tobacco usage or history of. Patient/guardian denies using alcohol, street drugs, The patient lives with family. - Family history:: not pertinent. Screenin:36 Abuse screen: Denies threats or abuse. Denies injuries from another. Nutritional bp screening: No deficits noted. Tuberculosis screening: No symptoms or risk factors identified. Fall Risk None identified. Assessment: 09:36 General: SEE TRIAGE NOTE. bp 09:45 Reassessment: Pt reports falling this morning at 0330, hit head on side table, takes dina Santana. ERD notified. 10:05 Reassessment: Pt to CT via wheelchair. jl7 10:25 Reassessment: Pt returned from CT. jl7 11:30 Reassessment: Dr. Scherer at bedside discussing results and POC. jl7 Vital Signs: 09:36 BP 126 / 50; Temp 98.9; Weight 108.86 kg; Height 5 ft. 2 in. (157.48 cm); bp 09:36 BP 136 / 99; Pulse 104; Resp 15; Temp 102.7; Pulse Ox 97% on R/A; bp 11:15 Pulse 108; Resp 15; Temp 98.3; jl7 11:33 BP 117 / 67; Pulse 107; Resp 15; Pulse Ox 99% on 2 lpm NC; jl7 09:36 Body Mass Index 43.90 (108.86 kg, 157.48 cm) bp ED Course: 09:32 Patient arrived in ED. ds1 09:32 Sam Scherer MD is Attending Physician. ma2 09:35 Justen Levine, RN is Primary Nurse. bp 09:36 Arm band placed on. bp 09:36 Patient has correct armband on for positive identification. Bed in low position. Call bp light in reach. Side rails up X2. 09:38 Triage completed. bp 09:40 clinical research monitor on. Pulse ox on. NIBP on. jl7 10:00 Initial lab(s) drawn, by nv, sent to lab. First set of blood cultures drawn by dina wilson Second set of blood cultures drawn by lab staff. Inserted saline lock: 22 gauge in left forearm, using aseptic technique. Blood collected. 10:10 CT Head C Spine In Process Unspecified. EDMS 10:11 CT Lumbar Spine Wo Con In Process Unspecified. EDMS 10:17 Primary Nurse role handed off by Justen Levine, RN jl7 10:17 Jesusita Livingston, CHRISSY is Primary Nurse. jl7 10:17 Chest Single View XRAY In Process Unspecified. EDMS 10:45 EKG done, by ED staff, reviewed by Sam Scherer MD. jl7 10:51 Extremity Venous Uni Ltd US In Process Unspecified. EDMS 10:55 COVID swab sent to lab. jl7 11:17 Amylase, Serum Sent. bp 11:17 Basic Metabolic Panel Sent. bp 11:53 Jason Mckinney is Hospitalizing Provider. ma2 12:14 Lower Extremity W/ Cont In Process Unspecified. EDMS Administered Medications: 09:55 Drug: Acetaminophen 1000 mg Route: PO; jl7 11:18 Follow up: Response: Temperature is decreased bp 10:25 Drug: NS 0.9% (30 ml/kg) 30 ml/kg Route: IV; Rate: bolus; Site: left forearm; jl7 12:00 Follow up: Response: No adverse reaction; IV Status: Completed infusion; IV Intake: jl7 2000ml ; 2,000 per ERD 10:25 Drug: Cefepime 1 grams Route: IVPB; Rate: 200 ml/hr; Infused Over: 30 mins; Site: left jl7 forearm; 10:55 Follow up: Response: No adverse reaction; IV Status: Completed infusion jl7 11:00 Drug: vancoMYCIN 1 grams Route: IVPB; Infused Over: 2 hrs; Site: left forearm; bp 13:00 Follow up: Response: No adverse reaction; IV Status: Completed infusion jl7 11:00 Drug: fentaNYL (PF) 50 mcg Route: IVP; Site: left forearm; bp 11:50 Follow up: Response: Pain is decreased bp 12:05 Drug: Dilaudid (HYDROmorphone) 1 mg Route: IVP; Site: left forearm; jl7 12:30 Follow up: Response: No adverse reaction; Pain is decreased [facility] Intake: 12:00 IV: 2000ml; Total: 2000ml. [facility] Outcome: 11:53 Decision to Hospitalize by Provider. ma2 17:08 Patient left the ED. ss Signatures: Dispatcher [employer] EDNV Jayne Ahmadi dsEmma Santizo RN RN ss Leal, Jahala, RN RN jl7 Peltier, Brian, RN RN bp Alzahri, Mohammad, MD MD ma2 Corrections: (The following items were deleted from the chart) 10:06 09:40 Inserted saline lock: 22 gauge in left forearm, using aseptic technique. Blood dina collected. dina 10:06 09:40 Initial lab(s) drawn, by , sent to lab. First set of blood cultures drawn by dina me, Second set of blood cultures drawn by lab staff. dina
[2021-05-08] MEDS ORDERED: HYDROMORPHONE HCL 1 MG/ML INJ ONE ×2 (12:01→14:15)
--- NOTE | 2021-05-08 12:33 | RAD REPORT ---
EXAM DESCRIPTION: CT - Lower Extremity W/ Cont - 05/08/2021 12:14 pm CLINICAL HISTORY: fall Fall, pain in the legs, swelling COMPARISON: No comparisons FINDINGS: The bones are diffusely osteopenic. There is no evidence of acute fracture or dislocation seen. Moderate arthritic changes involve both tibiotalar joints. Small calcaneal spurs are noted both along the plantar and posterior aspect bilaterally. Significant soft tissue edema is present involving both legs, greater on the right. Soft tissues are moderately swollen with particular fluid noted in the subcutaneous fat. No soft tissue mass or hemato ma. Moderate atherosclerosis. All CT scans are performed using dose optimization technique as appropriate and may include automated exposure control or mA/KV adjustment according to patient size. IMPRESSION: Prominent skin thickening and subcutaneous edema pattern is seen bilateral lower legs, m ore severe on the right. No abscess or well-formed fluid collection. No soft tissue mass. The bones are diffusely demineralized without evidence of acute fracture seen.
[2021-05-08 12:55] LABS: Blood Morphology Comment NOT SEEN (NOT SEEN); Platelet Estimate ADEQ; White Blood Cell Scan OK (OK)
--- NOTE | 2021-05-08 13:02 | P.HP ---
Certification for Inpatient Patient admitted to: Inpatient With expected LOS: >2 Midnights Practitioner: I am a practitioner with admitting privileges, knowledge of patient current condition, hospital course, and medical plan of care. Services: Services provided to patient in accordance with Admission requirements found in Title 42 Section 412.3 of the Code of Federal Regulations Patient History Date of Service: 05/08/21 Reason for admission: Bilateral leg swelling and fever History of Present Illness: 75-year-old man with a history of diabetes mellitus type 2, chronic atrial fibrillation, hypothyroidism, history of bilateral lower extremity lymphedema, history of intermittent hypotension presented to the emergency department due to progressive swelling and redness of bilateral lower extremity, worse on the right. Patient also experienced fever. Family reports patient fell and sustained abrasion to the left bernal. Patient noted to be febrile in the ED. she has leukocytosis, WBC up to 20,000, lactic acid mildly elevated. She appears confused. Family reports her right leg is small swollen and red than before. UA is pending. Imaging done showed no acute fracture, CT head no acute disease. Patient meets criteria for sepsis. Sepsis protocol initiated in the ED. BP has been stable. she is admitted for further management. Allergies ciprofloxacin Allergy (Verified 08/31/19 21:43) Hallucinations erythromycin base Allergy (Verified 08/31/19 21:43) Itching/Hives/Rash losartan Allergy (Verified 08/31/19 21:43) Hallucinations Macrolide Antibiotics Allergy (Verified 08/31/19 21:43) Itching/Hives/Rash metronidazole [From Flagyl] Allergy (Verified 08/31/19 21:43) Itching/Hives/Rash Penicillins Allergy (Verified 08/31/19 21:43) Itching/Hives/Rash pentoxifylline Allergy (Verified 08/31/19 21:43) Itching/Hives/Rash codeine Adverse Reaction (Intermediate, Verified 08/31/19 21:43) Hallucinations Home Medications: Dapagliflozin Propanediol [Farxiga] 10 mg PO DAILY 08/31/19 Diphenhydramine HCl [Banophen] 25 mg PO Q6HP PRN 08/31/19 Furosemide 40 mg PO DAILY 08/31/19 Hydrocortisone Cream [Hydrocortisone 1% Cream*] 1 lindsey TOP DAILY PRN 08/31/19 Insulin Aspart [Novolog Flexpen] 2 units SQ PRN 08/31/19 Insulin Degludec [Tresiba Flextouch U-100] 68 units SQ DAILY 08/31/19 Lactobacillus Acidophilus [Acidophilus] 1 cap PO DAILY 08/31/19 Latanoprost Ophth [Xalatan 0.005%*] 1 gtt EACH EYE BEDTIME 08/31/19 Levothyroxine Sodium 25 mcg PO DAILY 08/31/19 Midodrine HCl 5 mg PO TID 08/31/19 Pantoprazole [Protonix Tab*] 40 mg PO DAILY 08/31/19 Potassium Chloride [Klor-Con] 20 meq PO DAILY 08/31/19 Pramipexole Di-HCl [Pramipexole ER] 0.75 mg PO BEDTIME 08/31/19 Pregabalin 300 mg PO BID 08/31/19 traMADol HCL [Ultram*] 50 mg PO Q6HP PRN 08/31/19 - Past Medical/Surgical History Diabetic: Yes -: Pneumonia -: DM -: HTN -: HLD -: Hypothyroidism -: Neuropathy -: Glaucoma -: Atrial Fibrillation -: hypotension -: EYE SX -: CERVICAL SPINE SX -: HYSTERECTOMY -: APPENDECTOMY -: left FOOT SX - Family History Mother -: Cancer Notes: stomach and intestinal cancer Father -: Heart disease - Social History Alcohol use: No CD- Drugs: No Caffeine use: Yes Review of Systems Other: No reported diarrhea. She denies any abdominal pain or nausea or vomiting. Patient denied any chest pain or shortness of breath or cough Except as documented, all other systems reviewed and negative. Physical Examination - Physical Exam General: In no apparent distress, Confused HEENT: Atraumatic, PERRLA, Mucous membr. moist/pink, Sclerae nonicteric Neck: Supple, JVD not distended Respiratory: Clear to auscultation bilaterally, Normal air movement Cardiovascular: No edema, Regular rate/rhythm, Other (Tachycardia) Gastrointestinal: Normal bowel sounds, Soft and benign, Non-distended, No tenderness Musculoskeletal: Swelling (Bilateral lower extremities, worse on the right), Tenderness (Lower extremities) Integumentary: Erythema (Bilateral lower extremities), Warmth (Bilateral legs), Other Neurological: Normal speech, Cranial nerves 3-12 intact, Other (No focal motor deficit.) Lymphatics: No axilla or inguinal lymphadenopathy - Studies Laboratory Data (last 24 hrs) 05/08/21 10:00: PT 13.5 H, INR 1.14, APTT 33.0 05/08/21 10:00: WBC 20.20 H*, Hgb 12.4, Hct 38.3, Plt Count 210 05/08/21 10:00: Sodium 142, Potassium 4.2, BUN 18, Creatinine 1.38 H, Glucose 197 H, Total Bilirubin 0.5, AST 20, ALT 19, Alkaline Phosphatase 55, Amylase 42, Lipase 135 Assessment and Plan - Problems (Diagnosis) (1) Sepsis Current Visit: Yes Status: Acute (2) Lower extremity cellulitis Current Visit: Yes Status: Acute (3) Acute metabolic encephalopathy Current Visit: Yes Status: Acute (4) Venous stasis dermatitis Current Visit: Yes Status: Acute (5) Lymphedema Current Visit: No Status: Chronic (6) Morbid obesity with BMI of 40.0-44.9, adult Current Visit: No Status: Chronic (7) Type 2 diabetes mellitus Onset Date: 04/12/17 Current Visit: No Status: Chronic Qualifiers: Diabetes mellitus intermediate insulin use: with intermediate use Diabetes mellitus complication status: without complication Qualified Code(s): E11.9 - Type 2 diabetes mellitus without complications; Z79.4 - joint terminal attack controller (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 - Plan Admit to the medical floor. Sepsis protocol initiated. Noted patient has allergies to several antibiotics. Patient will be treated with IV vancomycin and Azactam. Blood cultures obtained in the ED. UA is pending. IV hydration overnight. Monitor intake and output, watch for volume overload. Serial lactate. Keep lower extremities elevated. Insulin sliding scale for glucose management. Monitor for hypotension. Midodrine as needed. - Advance Directives Does patient have a Living Will: No Does patient have a Durable POA for Healthcare: No
[2021-05-08] MEDS ORDERED: NA CHLORIDE 0.9% 500 ML IV ONE (16:04)
[2021-05-08] MEDS ORDERED: AZTREONAM 1 GM/VIAL IV SCH (16:04)
[2021-05-08] MEDS ORDERED: ONDANSETRON 4 MG/2 ML VIAL IV PRN (16:04)
[2021-05-08] MEDS: INSULIN -REGULAR HUMAN 50 UNIT/0.5 ML ML SQ SCH ×2 (16:30→21:00)
[2021-05-08] MEDS: AZTREONAM 1 GM in NA CHLORIDE 0.9% 50 ML IV SCH (17:00)
[2021-05-08 17:16] VITALS: BMI 41.1
[2021-05-08] MEDS: NA CHLORIDE 0.9% 1,000 ML IV SCH (17:18)
[2021-05-08] MEDS: ENOXAPARIN 40 MG/0.4 ML SQ SCH (17:19)
[2021-05-08] MEDS ORDERED: VANCOMYCIN 1.75 GM in NA CHLORIDE 0.9% 500 ML IVPB ONE (18:00)
[2021-05-08] MEDS: ACETAMINOPHEN 500 MG TAB PO PRN (18:14)
[2021-05-09] MEDS: ACETAMINOPHEN 500 MG TAB PO PRN ×4 (00:24→17:08)
[2021-05-09] MEDS: AZTREONAM 1 GM in NA CHLORIDE 0.9% 50 ML IV SCH ×3 (00:25→17:08)
[2021-05-09] MEDS: NA CHLORIDE 0.9% 1,000 ML IV SCH ×4 (04:10→15:06)
[2021-05-09 05:57] LABS: Absolute Lymphocytes (CBC) 0.6 K/uL (0.7-4.9); Basophils % 0.5 % (0-1.3); Hematocrit 30.3 % (36.0-45.0); Lymphocytes % 6.8 % (15.3-44.8); MPV 8.7 fL (7.6-11.3); RBC Red Blood Cell Count 3.86 M/uL (3.86-4.86)
[2021-05-09 06:19] LABS: Albumin 2.2 g/dL (3.4-5.0); Bilirubin Total 0.4 mg/dL (0.2-1.0); Magnesium 2.1 mg/dL (1.8-2.4); Phosphorus 2.8 mg/dL (2.5-4.9); Potassium 3.3 mmol/L (3.5-5.1); Protein, Total 5.8 g/dL (6.4-8.2)
[2021-05-09 06:25] LABS: Thyroid Stimulating Hormone 0.865 uIU/mL (0.360-3.740)
[2021-05-09] MEDS: INSULIN -REGULAR HUMAN 50 UNIT/0.5 ML ML SQ SCH ×4 (07:30→21:00)
[2021-05-09 07:44] LABS: Blood Morphology Comment NOT SEEN (NOT SEEN); Platelet Estimate ADEQ; White Blood Cell Scan OK (OK)
[2021-05-09] MEDS: ENOXAPARIN 40 MG/0.4 ML SQ SCH (08:26)
[2021-05-09] MEDS ORDERED: POTASSIUM CL SA 10 MEQ TAB PO ONE ×2 (09:00→16:44)
[2021-05-09] MEDS ORDERED: VANCOMYCIN/NS 1 gm 1 GM/250 ML BAG IVPB SCH (09:00)
[2021-05-09] MEDS: TRAMADOL HCL 50 MG TAB PO PRN ×2 (09:33→15:06)
[2021-05-09] MEDS ORDERED: PNEUMOCOCCAL VACCINE 0.5 ML IMVAC ONE (11:00)
--- NOTE | 2021-05-09 12:25 | P.PN ---
Subjective Date of Service: 05/09/21 Chief Complaint: Bilateral leg swelling and fever Patient complaining of pain all over. She is awake and alert. 1 Blood culture bottle is growing gram-positive cocci Physical Examination - Vital Signs Temperature: 98.2 F Blood Pressure: 133/70 Pulse: 72 Respirations: 20 Pulse Ox (%): 0 - Physical Exam General: Alert, Moderate distress (Due to pain) HEENT: Mucous membr. moist/pink Neck: Supple, JVD not distended Respiratory: Clear to auscultation bilaterally, Normal air movement Cardiovascular: Normal S1 S2, Edema (Bilateral lower extremities, worse on the right), Irregular heart rate/rhythm Gastrointestinal: Normal bowel sounds, Soft and benign, Non-distended, No tenderness Musculoskeletal: Swelling (Bilateral lower extremities, worse on the right) Integumentary: Other (Bilateral lower extremity venous stasis dermatitis) Neurological: Normal speech, Normal strength at 5/5 x4 extr - Studies Laboratory Data (last 24 hrs) 05/08/21 10:00: WBC 20.20 H*, Hgb 12.4, Hct 38.3, Plt Count 210 Microbiology Data (last 24 hrs): 05/08/21 10:00 Blood - Blood Blood Culture Gram Stain - Final 05/08/21 10:00 Blood - Blood Anaerobic Blood Culture - Final Assessment And Plan - Current Problems (Diagnosis) (1) Sepsis Current Visit: Yes Status: Acute (2) Lower extremity cellulitis Current Visit: Yes Status: Acute (3) Acute metabolic encephalopathy Current Visit: Yes Status: Acute (4) Venous stasis dermatitis Current Visit: Yes Status: Acute (5) Lymphedema Current Visit: No Status: Chronic (6) Morbid obesity with BMI of 40.0-44.9, adult Current Visit: No Status: Chronic (7) Type 2 diabetes mellitus Onset Date: 04/12/17 Current Visit: No Status: Chronic Qualifiers: Diabetes mellitus fci insulin use: with 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 Noted patient has allergies to several antibiotics. Continue IV vancomycin and Azactam. Leukocytosis resolved. Sepsis resolved. 1 blood cultures growing gram-positive cocci. Repeat blood culture Repeat UA. Reduce IV fluids rate given history of peripheral edema Monitor intake and output. Diet as tolerated Keep lower extremities elevated. Insulin sliding scale for glucose management. Monitor for hypotension. Midodrine as needed.
[2021-05-09 15:56] LABS: Urine Appearance CLEAR (Clear); Urine Bilirubin NEGATIVE (Negative); Urine Blood TRACE (Negative); Urine Color YELLOW (Yellow); Urine Glucose 3+ (Negative); Urine Protein 1+ (Negative); Urine Specific Gravity >=1.030 (1.005-1.030); Urine Urobilinogen 0.2 mg/dL (0.2-1.0)
[2021-05-09 17:10] LABS: Urine Bacteria <20 /HPF (<20); Urine RBC <5 /HPF (NONE SEEN)
[2021-05-10] MEDS: HYDROCODONE/APAP 5/325 MG TAB PO PRN (01:35)
[2021-05-10] MEDS: AZTREONAM 1 GM in NA CHLORIDE 0.9% 50 ML IV SCH ×3 (01:50→17:06)
[2021-05-10] MEDS: TRAMADOL HCL 50 MG TAB PO PRN ×3 (04:22→15:20)
[2021-05-10] MEDS ORDERED: VANCOMYCIN 2 GM in NA CHLORIDE 0.9% 500 ML IVPB SCH (06:00)
[2021-05-10 06:22] LABS: Absolute Lymphocytes (CBC) 0.7 K/uL (0.7-4.9); Basophils % 0.2 % (0-1.3); Hematocrit 34.2 % (36.0-45.0); Lymphocytes % 6.1 % (15.3-44.8); MPV 8.4 fL (7.6-11.3)
[2021-05-10 06:44] LABS: Potassium 3.7 mmol/L (3.5-5.1)
[2021-05-10] MEDS: INSULIN -REGULAR HUMAN 50 UNIT/0.5 ML ML SQ SCH ×4 (07:30→20:39)
[2021-05-10] MEDS: ENOXAPARIN 40 MG/0.4 ML SQ SCH (07:47)
--- NOTE | 2021-05-10 11:59 | P.PN ---
Subjective Date of Service: 05/10/21 Chief Complaint: Bilateral leg swelling and fever Patient states she feels much better today. The generalized bodily pains have resolved. She had fever yesterday but not today. Physical Examination - Vital Signs Temperature: 98.7 F Blood Pressure: 140/63 Pulse: 114 Respirations: 23 Pulse Ox (%): 90 - Studies Microbiology Data (last 24 hrs): 05/08/21 10:00 Blood - Blood Blood Culture Gram Stain - Final 05/08/21 10:00 Blood - Blood Anaerobic Blood Culture - Final Assessment And Plan - Current Problems (Diagnosis) (1) Sepsis Current Visit: Yes Status: Acute (2) Lower extremity cellulitis Current Visit: Yes Status: Acute (3) Acute metabolic encephalopathy Current Visit: Yes Status: Acute (4) Venous stasis dermatitis Current Visit: Yes Status: Acute (5) Lymphedema Current Visit: No Status: Chronic (6) Morbid obesity with BMI of 40.0-44.9, adult Current Visit: No Status: Chronic (7) Type 2 diabetes mellitus Onset Date: 04/12/17 Current Visit: No Status: Chronic Qualifiers: Diabetes mellitus [facility] insulin 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 Neck: Supple, JVD not distended Respiratory: Clear to auscultation bilaterally, Normal air movement Cardiovascular: Normal S1 S2, Edema-Bilateral lower extremities, worse on the right. Edema improved. Irregular heart rate/rhythm Gastrointestinal: Normal bowel sounds, Soft and benign, Non-distended, No tenderness Musculoskeletal: Swelling (Bilateral lower extremities, worse on the right) Integumentary: Bilateral lower extremity venous stasis dermatitis-worse on the right. Right foot is erythematous Neurological: Normal speech, Normal strength at 5/5 x4 extr Sepsis protocol initiated. Noted patient has allergies to several antibiotics. Continue IV vancomycin and Azactam. Leukocytosis resolved. Sepsis resolved. 1 blood cultures growing gram-positive cocci. Repeat blood culture: No growth to date. Continue to follow blood cultures. UA: No UTI. Discontinue IV fluid given lower extremity edema. Monitor intake and output. Diet as tolerated Keep lower extremities elevated. Insulin sliding scale for glucose management. Monitor for hypotension. Midodrine as needed.
[2021-05-10] MEDS ORDERED: HYDROCORTISONE 1 % CREAM 30GM TOP PRN (12:11)
[2021-05-10] MEDS ORDERED: POTASSIUM CL SA 10 MEQ TAB PO ONE (12:13)
[2021-05-10] MEDS: PREGABALIN 150 MG CAP PO SCH (20:37)
[2021-05-10] MEDS: ATORVASTATIN 10 MG TAB PO SCH (20:37)
[2021-05-10] MEDS ORDERED: PRAMIPEXOLE DI HCL 0.75 MG PO SCH (21:00)
[2021-05-11] MEDS: AZTREONAM 1 GM in NA CHLORIDE 0.9% 50 ML IV SCH (01:52)
[2021-05-11] MEDS: HYDROCODONE/APAP 5/325 MG TAB PO PRN ×2 (02:48→20:51)
[2021-05-11 04:45] LABS: Absolute Lymphocytes (CBC) 0.9 K/uL (0.7-4.9); Basophils % 0.5 % (0-1.3); Hematocrit 30.8 % (36.0-45.0); Lymphocytes % 9.6 % (15.3-44.8); RBC Red Blood Cell Count 3.95 M/uL (3.86-4.86)
[2021-05-11 04:54] LABS: Potassium 3.6 mmol/L (3.5-5.1)
[2021-05-11] MEDS ORDERED: VANCOMYCIN 2 GM in NA CHLORIDE 0.9% 500 ML IVPB SCH (06:00)
[2021-05-11] MEDS: INSULIN -REGULAR HUMAN 50 UNIT/0.5 ML ML SQ SCH ×4 (07:30→20:43)
[2021-05-11] MEDS: PREGABALIN 150 MG CAP PO SCH ×2 (07:59→20:42)
[2021-05-11] MEDS ORDERED: POTASSIUM CL SA 10 MEQ TAB PO ONE (08:00)
[2021-05-11] MEDS: LACTOBACILLUS/ACIDOPHILUS TAB PO SCH (08:00)
[2021-05-11] MEDS: ENOXAPARIN 40 MG/0.4 ML SQ SCH (08:00)
[2021-05-11] MEDS: PANTOPRAZOLE 40MG TABLET PO SCH (08:00)
[2021-05-11] MEDS: FERROUS SULFATE 325 MG TAB PO SCH (08:00)
[2021-05-11] MEDS: POTASSIUM CL SA 10 MEQ TAB PO SCH (08:00)
[2021-05-11] MEDS: LEVOTHYROXINE SOD 0.025 MG TAB PO SCH (08:00)
[2021-05-11] MEDS: Dapagliflozin Propanediol [Farxiga] 10 MG Tablet PO SCH (08:02)
[2021-05-11] MEDS: SMZ./TMP. 800/160 MG TABLET PO SCH ×2 (08:55→20:42)
[2021-05-11] MEDS ORDERED: FUROSEMIDE 40 MG TABLET PO SCH (09:00)
[2021-05-11] MEDS ORDERED: PRAMIPEXOLE 0.5 MG PO SCH ×2 (09:15→21:00)
--- NOTE | 2021-05-11 10:24 | P.DS ---
Admission Date: 05/08/21 Discharge Date: 05/11/21 Disposition: ROUTINE DISCHARGE Discharge Condition: FAIR Reason for Admission: Bilateral leg swelling and fever - Problems (1) Sepsis Current Visit: Yes Status: Acute (2) Lower extremity cellulitis Current Visit: Yes Status: Acute (3) Acute metabolic encephalopathy Current Visit: Yes Status: Acute (4) Venous stasis dermatitis Current Visit: Yes Status: Acute (5) Lymphedema Current Visit: No Status: Chronic (6) Morbid obesity with BMI of 40.0-44.9, adult Current Visit: No Status: Chronic (7) Type 2 diabetes mellitus Onset Date: 04/12/17 Current Visit: No Status: Chronic Qualifiers: Diabetes mellitus retirement insulin use: with middle or intermediate school principal use Diabetes mellitus complication status: without complication Qualified Code(s): E11.9 - Type 2 diabetes mellitus without complications; Z79.4 - middle or intermediate school principal (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 Brief History of Present Illness: 75-year-old man with a history of diabetes mellitus type 2, chronic atrial fibrillation, hypothyroidism, history of bilateral lower extremity lymphedema, history of intermittent hypotension presented to the emergency department due to progressive swelling and redness of bilateral lower extremity, worse on the right. Patient also experienced fever. Family reports patient fell and sustained abrasion to the left bernal. Patient noted to be febrile in the ED. She had leukocytosis, WBC up to 20,000, lactic acid mildly elevated. She appeared confused. Family reports her right leg is small swollen and red than before. UA pending. Imaging done showed no acute fracture, CT head no acute disease. Patient met criteria for sepsis. Sepsis protocol initiated in the ED. BP stable. Admitted for further management. Hospital Course: Patient admitted to the medical floor, sepsis protocol initiated. Noted patient has allergies to several antibiotics. She was treated with IV vancomycin and Azactam. Briefly treated with IV fluid for sepsis. Leukocytosis resolved. Sepsis resolved. 1 blood cultures grew coagulase-negative staph-likely a skin contaminant. Repeat blood culture: No growth to date. UA: No UTI. Restarted oral Lasix after IV fluid discontinued. Significant improvement seen in the edema, erythema and swelling of the lower extremities. Patient blood sugar readings were within acceptable range and did not require insulin coverage. Noted she is on insulin degludec 60 units daily. This has been discontinued. Patient informed to continue monitoring her blood sugar for the need for insulin therapy No hypotension during the hospital stay. Patient was actually hypertensive. Midodrine discontinued. Vital Signs/Physical Exam: Temp Pulse Resp BP Pulse Ox 98.7 F 107 H 18 145/63 H 96 05/11/21 08:00 05/11/21 10:06 05/11/21 08:00 05/11/21 10:06 05/11/21 08:00 General: Alert, In no apparent distress, Oriented x3 HEENT: Mucous membr. moist/pink Respiratory: Clear to auscultation bilaterally, Normal air movement Cardiovascular: Regular rate/rhythm, Normal S1 S2, Edema (Trace bilateral lower extremity edema) Gastrointestinal: Soft and benign, Non-distended, No tenderness Musculoskeletal: Swelling (Right lower extremity slightly swollen compared to the left.) Integumentary: Other (Shallow abrasion to the left bernal, right lower extremity erythema significantly improved.) Neurological: Normal strength at 5/5 x4 extr, Cranial nerves 3-12 intact Laboratory Data at Discharge: WBC 9.10 K/uL (4.3-10.9) D 05/11/21 04:30 Hgb 10.4 g/dL (12.0-15.0) L 05/11/21 04:30 Hct 30.8 % (36.0-45.0) L 05/11/21 04:30 Plt Count 164 K/uL (152-406) 05/11/21 04:30 PT 13.5 SECONDS (9.2-12.8) H 05/08/21 10:00 INR 1.14 05/08/21 10:00 APTT 33.0 SECONDS (21.7-34.4) 05/08/21 10:00 Sodium 143 mmol/L (136-145) 05/11/21 04:30 Potassium 3.6 mmol/L (3.5-5.1) 05/11/21 04:30 BUN 13 mg/dL (7-18) 05/11/21 04:30 Creatinine 0.72 mg/dL (0.55-1.3) 05/11/21 04:30 Glucose 120 mg/dL (74-106) H 05/11/21 04:30 Phosphorus 2.8 mg/dL (2.5-4.9) 05/09/21 05:03 Magnesium 2.1 mg/dL (1.8-2.4) 05/09/21 05:03 Total Bilirubin 0.4 mg/dL (0.2-1.0) 05/09/21 05:03 AST 37 U/L (15-37) 05/09/21 05:03 ALT 18 U/L (12-78) 05/09/21 05:03 Alkaline Phosphatase 32 U/L (45-117) L 05/09/21 05:03 Troponin I 0.11 ng/mL (0.0-0.045) H 05/08/21 22:44 Triglycerides 105 mg/dL (<150) 05/09/21 05:03 Cholesterol 106 mg/dL (<200) 05/09/21 05:03 HDL Cholesterol 39 mg/dL (40-60) L 05/09/21 05:03 Cholesterol/HDL Ratio 2.72 05/09/21 05:03 Amylase 42 U/L (25-115) 05/08/21 10:00 Lipase 135 U/L (73-393) 05/08/21 10:00 Home Medications: Dapagliflozin Propanediol [Farxiga] 10 mg PO DAILY 08/31/19 Diphenhydramine HCl [Banophen] 25 mg PO Q6HP PRN 08/31/19 Furosemide 40 mg PO DAILY 08/31/19 Hydrocortisone Cream [Hydrocortisone 1% Cream*] 1 lindsey TOP DAILY PRN 08/31/19 Insulin Aspart [Novolog Flexpen] 2 units SQ TIDWM 08/31/19 Lactobacillus Acidophilus [Acidophilus] 1 cap PO DAILY 08/31/19 Latanoprost Ophth [Xalatan 0.005%*] 1 gtt EACH EYE BEDTIME PRN 08/31/19 Levothyroxine Sodium 25 mcg PO DAILY 08/31/19 Pantoprazole [Protonix Tab*] 40 mg PO DAILY 08/31/19 Potassium Chloride [Klor-Con] 20 meq PO DAILY 08/31/19 Pramipexole Di-HCl [Pramipexole ER] 0.75 mg PO BEDTIME 08/31/19 Pregabalin 300 mg PO BID 08/31/19 traMADol HCL [Ultram*] 50 mg PO Q6HP PRN 08/31/19 Aspirin [Aspirin EC 81 MG] 1 tab PO DAILY 05/08/21 Ferrous Sulfate [Ferrous Sulfate*] 1 tab PO DAILY 05/08/21 Pravastatin [Pravachol*] 1 tab PO BEDTIME 05/08/21 Smz./Tmp. [Bactrim Ds 800 MG/160 MG*] 1 tab PO BID #14 tab 05/11/21 New Medications: Smz./Tmp. [Bactrim Ds 800 MG/160 MG*] 1 tab PO BID #14 tab Diet: ADA Activity: Ad carl Followup: Armand Drake MD [Primary Care Provider] - 1-2 Weeks
--- NOTE | 2021-05-11 14:48 | RAD REPORT ---
EXAM DESCRIPTION: CT - Chest For Pe Angio - 05/11/2021 2:23 pm CLINICAL HISTORY: Chest pain. Hypoxia COMPARISON: No comparisons TECHNIQUE: CT angiogram of the pulmonary arteries was performed with MIP. All CT scans are performed using dose optimization technique as appropriate and may include automated exposure control or mA/KV adjustment according to patient size. FINDINGS: No evidence of pulmonary thromboembolism. No acute aortic finding demonstrated. Mild interstitial pulmonary edema. Small bilateral pleural effusions. No concerning bony finding. IMPRESSION: No evidence of pulmonary thromboembolism. Mild to moderate CHF pattern.
[2021-05-11] MEDS: FUROSEMIDE 40 MG/4 ML VIAL IV SCH (16:49)
--- NOTE | 2021-05-11 17:57 | P.PN ---
Subjective Date of Service: 05/11/21 Chief Complaint: Bilateral leg swelling and fever Patient desires to go home. Her lower extremity edema have significantly improved. Lower extremity erythema also significantly improved. No fever over the past 48 hours. Physical Examination - Vital Signs Temperature: 99.2 F Blood Pressure: 133/56 Pulse: 114 Respirations: 18 Pulse Ox (%): 99 - Studies Microbiology Data (last 24 hrs): 05/08/21 10:00 Blood - Blood Blood Culture Gram Stain - Final Assessment And Plan - Current Problems (Diagnosis) (1) Sepsis Current Visit: Yes Status: Acute (2) Lower extremity cellulitis Current Visit: Yes Status: Acute (3) Acute metabolic encephalopathy Current Visit: Yes Status: Acute (4) Venous stasis dermatitis Current Visit: Yes Status: Acute (5) Lymphedema Current Visit: No Status: Chronic (6) Morbid obesity with BMI of 40.0-44.9, adult Current Visit: No Status: Chronic (7) Type 2 diabetes mellitus Onset Date: 04/12/17 Current Visit: No Status: Chronic Qualifiers: 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 Neck: Supple, JVD not distended Respiratory: Mild bibasilar crackles, Normal air movement Cardiovascular: Normal S1 S2, Edema-Bilateral lower extremities, worse on the right. Significant improvement in edema. Irregular heart rate/rhythm Gastrointestinal: Normal bowel sounds, Soft and benign, Non-distended, No tenderness Musculoskeletal: Swelling (Bilateral lower extremities, worse on the right) Integumentary: Bilateral lower extremity venous stasis dermatitis-worse on the right. Right foot is erythema has improved. Abrasive wound on the left bernal. Neurological: Normal speech, Normal strength at 5/5 x4 extr Sepsis protocol initiated. Noted patient has allergies to several antibiotics. Leukocytosis resolved. Sepsis resolved. IV antibiotics transition to oral Bactrim. 1 blood cultures growing gram-positive cocci. Repeat blood culture: No growth to date. Continue to follow blood cultures. UA: No UTI. Patient noted to be hypoxic on room air. CTA thorax demonstrate pulmonary edema. Start IV Lasix. Monitor intake and output. Wean off oxygen as tolerated. Diet as tolerated Keep lower extremities elevated. Insulin sliding scale for glucose management. Monitor for hypotension.
--- NOTE | 2021-05-11 18:34 | EKG ---
Test Date: 2021-05-08 Test Time: 10:25:57 Lab Technologist: [employer]MER MEASUREMENT RESULTS: Intervals: Rate: 99 IL: 200 QRSD: 88 QT: 354 QTc: 454 [place]: P: 59 IL: 200 QRS: -35 T: 88 INTERPRETIVE STATEMENTS: Normal sinus rhythm with sinus arrhythmia Left axis deviation Septal infarct, age undetermined Abnormal ECG Compared to ECG 08/31/2019 14:29:58 Sinus tachycardia no longer present Myocardial infarct finding still present Electronically Signed On 05-11-21 18:24:42 TOW BOAT CAPTAIN by Kamaljit Casiano
[2021-05-11] MEDS ORDERED: LATANOPROST 0.005% 2.5ML OPTH OPTH PRN (19:06)
[2021-05-11 19:11] LABS: Phosphorus 1.4 mg/dL (2.5-4.9)
[2021-05-11] MEDS: ATORVASTATIN 10 MG TAB PO SCH (20:42)
[2021-05-11] MEDS: PRAMIPEXOLE 0.5 MG PO SCH (20:43)
[2021-05-11] MEDS ORDERED: SMZ./TMP. 800/160 MG TABLET PO SCH (21:00)
[2021-05-12] MEDS: FUROSEMIDE 40 MG/4 ML VIAL IV SCH ×2 (01:38→09:11)
[2021-05-12 04:10] LABS: Absolute Lymphocytes (CBC) 1.1 K/uL (0.7-4.9); Basophils % 0.7 % (0-1.3); Hematocrit 32.6 % (36.0-45.0); RBC Red Blood Cell Count 4.19 M/uL (3.86-4.86)
[2021-05-12] MEDS: HYDROCODONE/APAP 5/325 MG TAB PO PRN (04:14)
[2021-05-12] MEDS: KCL 20 MEQ/100 mL IVPB 20 MEQ/100 ML BAG IV SCH ×2 (07:00→07:55)
[2021-05-12] MEDS: INSULIN -REGULAR HUMAN 50 UNIT/0.5 ML ML SQ SCH ×2 (07:30→12:00)
[2021-05-12] MEDS ORDERED: POTASSIUM CL SA 10 MEQ TAB PO ONE (07:56)
[2021-05-12] MEDS ORDERED: INFLUENZA VACCINE (for 6+ mo) 0.5 ML DOSE IMVAC ONE (08:00)
[2021-05-12] MEDS: Dapagliflozin Propanediol [Farxiga] 10 MG Tablet PO SCH (09:00)
[2021-05-12] MEDS: ENOXAPARIN 40 MG/0.4 ML SQ SCH (09:10)
[2021-05-12] MEDS: LACTOBACILLUS/ACIDOPHILUS TAB PO SCH (09:11)
[2021-05-12] MEDS: POTASSIUM CL SA 10 MEQ TAB PO ONE ×2 (09:11→09:12)
[2021-05-12] MEDS: PANTOPRAZOLE 40MG TABLET PO SCH (09:11)
[2021-05-12] MEDS: PREGABALIN 150 MG CAP PO SCH (09:12)
[2021-05-12] MEDS: LEVOTHYROXINE SOD 0.025 MG TAB PO SCH (09:12)
[2021-05-12] MEDS: SMZ./TMP. 800/160 MG TABLET PO SCH (09:12)
[2021-05-12] MEDS: PRAMIPEXOLE 0.5 MG PO SCH (09:14)
[2021-05-12] MEDS: FERROUS SULFATE 325 MG TAB PO SCH (09:18)
[2021-05-12 09:44] VITALS: O2SAT 96
[2021-05-12] MEDS: POTASSIUM CL SA 10 MEQ TAB PO SCH (10:00)
--- NOTE | 2021-05-12 12:31 | P.DS ---
Admission Date: 05/08/21 Discharge Date: 05/12/21 Disposition: ROUTINE DISCHARGE Discharge Condition: FAIR Reason for Admission: Bilateral leg swelling and fever Procedures: CXR (05/08): No acute intrathoracic process suspected. Venous extremity ultrasound (05/08): Positive for DVT right mid and distal femoral vein. CT head/C-spine (05/08): FINDINGS: CT HEAD WITHOUT CONTRAST: No acute hemorrhage, hydrocephalus or extra-axial collection is identified.No areas of brain edema or midline shift. The paranasal sinuses and mastoids are clear.The calvarium is intact. Bilateral vertebral atherosclerosis. CT CERVICAL SPINE WITHOUT CONTRAST: No fracture or subluxation.Prominent osteophyte is seen projecting from the C3 vertebral body posteriorly and superiorly.Fusion hardware is present spanning C5-7. IMPRESSION: No acute intracranial or cervical spine findings. CT lumbar spine (05/08): IMPRESSION: No acute lumbar spine abnormality is seen. Multilevel spondylosis is present with possible severe stenosis at L3-4. Follow-up non-emergent MRI of the lumbar spine would be recommended. CT lower extremity (05/08): IMPRESSION: Prominent skin thickening and subcutaneous edema pattern is seen bilateral lower legs, more severe on the right. No abscess or well-formed fluid collection. No soft tissue mass. The bones are diffusely demineralized without evidence of acute fracture seen. CTA chest (05/11): IMPRESSION: No evidence of pulmonary thromboembolism. Mild to moderate CHF pattern. Problem list Sepsis secondary to lower extremity cellulitis, without severe sepsis/shock Lower extremity cellulitis Acute metabolic encephalopathy secondary to sepsis, resolved Venous stasis dermatitis Lymphedema Morbid obesity Diabetes mellitus type 2, [id number] Chronic right femoral vein DVT, on Eliquis Brief History of Present Illness: 75-year-old man with a history of diabetes mellitus type 2, chronic atrial fibrillation, hypothyroidism, history of bilateral lower extremity lymphedema, history of intermittent hypotension presented to the emergency department due to progressive swelling and redness of bilateral lower extremity, worse on the right. Patient also experienced fever. Family reports patient fell and sustained abrasion to the left bernal. Patient noted to be febrile in the ED. She had leukocytosis, WBC up to 20,000, lactic acid mildly elevated. She appeared confused. Family reports her right leg is small swollen and red than before. UA pending. Imaging done showed no acute fracture, CT head no acute disease. Patient met criteria for sepsis. Sepsis protocol initiated in the ED. BP stable. Admitted for further management. Hospital Course: Patient was empirically treated for sepsis with IV antibiotics and IV fluids. She had improvement of her symptoms and leukocytosis. 1 blood culture grew gram-positive cocci consistent more with contamination. Discharged home to complete treatment with Bactrim. During her hospitalization she was noted to be hypoxic on room air, and a CTA chest demonstrated pulmonary edema. She was given IV Lasix and improved with diuresis. She was breathing comfortably on room air on day of discharge. She was feeling better and requested to be discharged home. She was deemed stable and improved. She was discharged home to continue with her caregiver. She had a superficial abrasion on the left lower extremity, recommended to continue local wound care, keep area clean. Patient blood sugar readings were within acceptable range and did not require insulin coverage. Noted she is on insulin degludec 60 units daily. This has been discontinued. Patient informed to continue monitoring her blood sugar for the need for insulin therapy No hypotension during the hospital stay. Patient was actually hypertensive. Midodrine discontinued. Right lower extremity Doppler revealed DVT. Patient this is a chronic over a year, follows with vascular surgery. To continue Eliquis as prescribed. Vital Signs/Physical Exam: Temp Pulse Resp BP Pulse Ox 98.7 F 111 H 18 111/59 L 97 05/12/21 08:00 05/12/21 09:11 05/12/21 08:00 05/12/21 09:11 05/12/21 08:00 General: Alert, In no apparent distress, Oriented x3 HEENT: Sclerae nonicteric Respiratory: Clear to auscultation bilaterally, Diminished (at bases bilaterally), Other (Nonlabored respirations on room air) Cardiovascular: Regular rate/rhythm, Edema (trace to 1+ bilateral to knees) Gastrointestinal: Soft and benign, Non-distended, No tenderness Integumentary: Other (Left lower extremity: Superficial abrasion, no purulent drainage) Neurological: Normal speech, Normal affect Laboratory Data at Discharge: WBC 7.00 K/uL (4.3-10.9) D 05/12/21 03:50 Hgb 10.8 g/dL (12.0-15.0) L 05/12/21 03:50 Hct 32.6 % (36.0-45.0) L 05/12/21 03:50 Plt Count 192 K/uL (152-406) 05/12/21 03:50 PT 13.5 SECONDS (9.2-12.8) H 05/08/21 10:00 INR 1.14 05/08/21 10:00 APTT 33.0 SECONDS (21.7-34.4) 05/08/21 10:00 Sodium 143 mmol/L (136-145) 05/12/21 03:50 Potassium 3.0 mmol/L (3.5-5.1) L 05/12/21 03:50 BUN 15 mg/dL (7-18) 05/12/21 03:50 Creatinine 0.89 mg/dL (0.55-1.3) 05/12/21 03:50 Glucose 137 mg/dL (74-106) H 05/12/21 03:50 Phosphorus 1.4 mg/dL (2.5-4.9) L 05/11/21 18:33 Magnesium 2.0 mg/dL (1.8-2.4) 05/12/21 03:50 Total Bilirubin 0.4 mg/dL (0.2-1.0) 05/09/21 05:03 AST 37 U/L (15-37) 05/09/21 05:03 ALT 18 U/L (12-78) 05/09/21 05:03 Alkaline Phosphatase 32 U/L (45-117) L 05/09/21 05:03 Troponin I 0.11 ng/mL (0.0-0.045) H 05/08/21 22:44 Triglycerides 105 mg/dL (<150) 05/09/21 05:03 Cholesterol 106 mg/dL (<200) 05/09/21 05:03 HDL Cholesterol 39 mg/dL (40-60) L 05/09/21 05:03 Cholesterol/HDL Ratio 2.72 05/09/21 05:03 Amylase 42 U/L (25-115) 05/08/21 10:00 Lipase 135 U/L (73-393) 05/08/21 10:00 Home Medications: Dapagliflozin Propanediol [Farxiga] 10 mg PO DAILY 08/31/19 Diphenhydramine HCl [Banophen] 25 mg PO Q6HP PRN 08/31/19 Furosemide 40 mg PO DAILY 08/31/19 Hydrocortisone Cream [Hydrocortisone 1% Cream*] 1 lindsey TOP DAILY PRN 08/31/19 Insulin Aspart [Novolog Flexpen] 2 units SQ TIDWM 08/31/19 Lactobacillus Acidophilus [Acidophilus] 1 cap PO DAILY 08/31/19 Latanoprost Ophth [Xalatan 0.005%*] 1 gtt EACH EYE BEDTIME PRN 08/31/19 Levothyroxine Sodium 25 mcg PO DAILY 08/31/19 Pantoprazole [Protonix Tab*] 40 mg PO DAILY 08/31/19 Potassium Chloride [Klor-Con] 20 meq PO DAILY 08/31/19 Pramipexole Di-HCl [Pramipexole ER] 0.75 mg PO BEDTIME 08/31/19 Pregabalin 300 mg PO BID 08/31/19 traMADol HCL [Ultram*] 50 mg PO Q6HP PRN 08/31/19 Aspirin [Aspirin EC 81 MG] 1 tab PO DAILY 05/08/21 Ferrous Sulfate [Ferrous Sulfate*] 1 tab PO DAILY 05/08/21 Pravastatin [Pravachol*] 1 tab PO BEDTIME 05/08/21 Smz./Tmp. [Bactrim Ds 800 MG/160 MG*] 1 tab PO BID #14 tab 05/11/21 New Medications: Smz./Tmp. [Bactrim Ds 800 MG/160 MG*] 1 tab PO BID #14 tab Diet: ADA Activity: Ad carl Followup: Armand Drake MD [Primary Care Provider] - 1-2 Weeks (Call to schedule appointment.) Time spent managing pt's care (in minutes): 45
[2021-05-12 12:57] VITALS: BP 112/53; TEMP 98.9
== END 2021-05-12 15:14 | disposition home or self-care (01) | DRG 871 ==
LOC: ER 09:30 → ERHOLD 13:21 → 2ND 14:12
PROVIDERS: ADMIT Internal Medicine; ATTEND Hospitalist
DX: A41.9 Sepsis, unspecified organism (principal); G93.41 Metabolic encephalopathy; L03.116 Cellulitis of left lower limb; L03.115 Cellulitis of right lower limb; Z68.41 Body mass index [BMI] 40.0-44.9, adult; I82.511 Chronic embolism and thrombosis of right femoral vein; E66.01 Morbid (severe) obesity due to excess calories; E78.5 Hyperlipidemia, unspecified; E11.9 Type 2 diabetes mellitus without complications; I89.0 Lymphedema, not elsewhere classified; I87.2 Venous insufficiency (chronic) (peripheral); I10 Essential (primary) hypertension; E03.9 Hypothyroidism, unspecified; S80.812A Abrasion, left lower leg, initial encounter; R77.8 Other specified abnormalities of plasma proteins; W18.30XA Fall on same level, unspecified, initial encounter; Z88.1 Allergy status to other antibiotic agents; Z88.0 Allergy status to penicillin; Z88.8 Allergy status to other drugs, medicaments and biological substances; Z79.82 Long term (current) use of aspirin; Z90.710 Acquired absence of both cervix and uterus; Z79.4 Long term (current) use of insulin; Z79.890 Hormone replacement therapy; Z79.899 Other long term (current) drug therapy; Z20.822 Contact with and (suspected) exposure to COVID-19; Z23 Encounter for immunization
CPT/HCPCS: 36415; 70450; 71045; 71275; 72125; 72131; 73701; 80048; 80053; 80061; 80076; 80202; 81001; 82150; 82550; 82553; 82947; 83605; 83690; 83735; 84100; 84132; 84145; 84443; 84484; 85025; 85610; 85730; 86140; 87040; 87205; 90471; 93005; 93971; 94010; 94760; 96365; 96366; 96367; 96368; 96375; 99285; J0692; J1170; J1650; J1940; J2405; J3010; J3370; J7030; J7040; Q2035; Q9967; U0003

== ENCOUNTER 2021-05-29 09:28 | Inpatient (IN) | payer OTHER ==
--- OUTSIDE RECORDS SUMMARY | 2021-05-29 09:32 | XMS REPORT | Continuity of Care Document ---
:1945 Author Organization [facility] t Address [address] [place] [address] Dr. Guillen[address] [place] [address] Care Team Providers Name Role Phone Judy BALL Primary Care Physician Unavailable JOSH Attending Clinician Unavailable ARMANI Attending Clinician Unavailable Seth BARKSDALE Attending Clinician Unavailable Yocasta WALSH Attending Clinician Unavailable TIMBO Attending Clinician Unavailable Armani EPPS Attending Clinician Bernabe Ball Attending Clinician [phone] Diogenes Schwartz Attending Clinician Diogenes MCKAY Attending Clinician Unavailable Hilda LARSEN Attending Clinician Unavailable MICHOACANO Attending Clinician Unavailable EVIE Attending Clinician Unavailable Robbie DEL REAL JR Attending Clinician Unavailable JOSH Admitting Clinician Unavailable Payers Payer Name Policy Type Policy Number Effective Date Expiration Date S melissa MEDICARE B-[place]: [id number] 2011 [employer] 00:00:00 [employer] [id number] 2011 00:00:00 MEDICARE PART A [id number] 2011 \\T\\ B 00:00:00 [employer] [id number] 2011 00:00:00 Advance Directives Directive Decision Effective Termination Comments Source Date Date Healthcare Agents on N/A [facility] HaverkanpFriend2 - 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) Problems Condition Condition Condition Status Onset Resolution Last Treating Co mments Source Name Details Category Date Date Treatment Clinician Date VTE VTE Disease Active Univers (venous (venous 7-10 [place]y of thromboemb thromboemb [place] olism[place] olism[place] 00 Medical Branch PAD PAD Disease Active Univers (periphera (periphera 7-10 it y of l artery l artery 00:00: [place] disease) disease) 00 Medica l Branch Chronic Chronic Disease Active Univers deep vein deep vein 7-10 [place]y of thrombosis [place] 00:00: [place] (DVT) of (DVT) of 00 Medica l 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 Class 3 Class 3 Disease Active Univers severe severe 7-10 ity of obesity obesity 00:00: [place] due to due to 00 Medical excess excess Branch calories calories in adult, in adult, unspecifie unspecifie d BMI, d BMI, unspecifie unspecifie d whether d whether serious serious comorbidit comorbidit y present y present Cellulitis Cellulitis Disease Active U nivers and and 9-15 ity of abscess of abscess of 00:00: [place] right right 00 Medical lower lower Branch extremity extremity Cellulitis Cellulitis Disease Active 2018-07 U nivers of right of right 0-09 ity of leg leg 00:00: [place] 00 Medical Branch Excessive Excessive Disease Active Uni vers daytime daytime 1-02 ity of sleepiness sleepiness 00:00: [place] 00 [place] 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 00:00: [place] mellitus mellitus 00 Medica l without without Branch complicati complicati on, with on, with long-term long-term current current use of use of insulin insulin Essential Essential Disease Active 2014-07 Uni vers hypertensi hypertensi 2-24 it y of on on 00:00: [place] 00 Medical Branch Hyperlipid Hyperlipid Disease Active 2014-07 U nivers emia emia 2-24 ity of 00:00: [place] [facility] Hypothyroi Hypothyroi Disease Active 2014-07 U nivers dism dism 2-24 ity of (acquired) (acquired) 00:00: [place] 00 [place] Allergies, Adverse Reactions, Alerts Allergy Allergy Status Severity Reaction(s) Onset Inactive Treating Comm ents Source Name Type Date Date Clinician Clindamy Drug Active Rash 2020-0 Univers molly Allergy - ity of 00:00: [place] 00 Medical Branch Codeine Drug Active Dizziness 0 Univer s Allergy 11-04 ity of 00:00: [place] 00 Medical Branch CLINDAMY DRUG Active Rash 2020-0 Univers MOLLY INGREDI 11-04 ity of 00:00: [place] 00 Medical Branch CODEINE DRUG Active Hallucinates Uni vers INGREDI 5- ity of 00:00: [place] 00 Medical Branch Sulfa Propensi Active Nausea 0 Univers (Sulfona ty to and/or 1-06 ity of mide adverse Vomiting 00:00: [place] Antibiot reaction 00 Medica l ics) s Branch SULFA Drug Active N/V 0 Univers (SULFONA Class 1-06 ity of MIDE 00:00: [place] ANTIBIOT 00 Medical ICS) Branch Erythrom Propensi Active Unknown - 2020-0 Uni vers ycin ty to See comments 9-11 ity of adverse 00:00: [place] reaction 00 Medical s Branch Metformi Propensi Active Unknown - 2020-0 Uni vers n ty to See comments 9-11 ity of adverse 00:00: [place] reaction 00 Medical s Branch METFORMI DRUG Active Unknown-Cmnt 2020-0 [facility] [place] N INGREDI 9-11 ity of 00:00: [place] 00 Medical Branch ERYTHROM DRUG Active Unknown-Cmnt 2020-0 [facility] [place] YCIN 9-11 ity of 00:00: [place] 00 Medical Branch Adhesive Drug Active Rash 2020-0 Univers Tape-Mandeep Allergy 2-14 ity of icones 00:00: [place] 00 Medical Branch ADHESIVE DRUG Active Rash 2020-0 Univers TAPE-MANDEEP 2-14 ity of ICONES 00:00: [place] 00 Medical Branch Ciproflo Propensi Active Unknown - 2017-07 Uni vers xacin ty to See comments 0-09 ity of adverse 00:00: [place] reaction 00 Medical s Branch Metronid Propensi Active Unknown - 2017-07 Uni vers azole ty to See comments 0-09 ity of adverse 00:00: [place] reaction 00 Medical s Branch CIPROFLO DRUG Active Unknown-Cmnt 2017- Un [place] XACIN INGREDI 0-09 ity of 00:00: [place] 00 Medical Branch METRONID DRUG Active Unknown-Cmnt 2017- [facility] [place] AZOLE INGREDI 0-09 ity of 00:00: [place] 00 Medical Branch Losartan Propensi Active Cough 2017-0 Univer s Potassiu ty to 9-19 ity of m adverse 00:00: [place] reaction 00 Medical s Branch LOSARTAN DRUG Active High SOB 2017-0 Univers POTASSIU INGREDI 9-19 ity of M 00:00: [place] 00 Medical Branch Pentoxif Propensi Active Shortness of 2017-0 Univers ylline ty to Breath 7-15 ity of adverse 00:00: [place] reaction 00 Medical s Branch PENTOXIF DRUG Active ITCHING 2017-0 Univers YLLINE INGREDI 7-15 ity of 00:00: [place] 00 Medical Branch Macrolid Propensi Active Rash 2014- Univer s e ty to 2-09 ity of Antibiot adverse 00:00: [place] ics reaction 00 Medical s Branch Penicill Propensi Active Rash 2014- Univer s in ty to 2-09 ity of adverse 00:00: [place] reaction 00 Medical s Branch MACROLID Drug Active Rash 2014- Univers E Class 2-09 ity of ANTIBIOT 00:00: [place] ICS 00 Medical Branch PENICILL DRUG Active Rash 2014- Univers IN INGREDI 2-09 ity of 00:00: [place] 00 Medical [place] Social History Social Habit Start Date Stop Date Quantity Comments Source History of Cigarette Smoker Universi ty of tobacco use [facility] Exposure to Not sure University of SARS-CoV-2 [facility] (event) [place] Alcohol intake 2021-05-21 2021-05-21 0 /d University of 00:00:00 00:00:00 [facility] Tobacco Comment 2020-03-19 2020-03-19 exposed to 2nd Unive rsity of 00:00:00 00:00:00 hand smoke [facility] Education 2019-04-11 2019-04-11 21 University of 00:00:00 00:00:00 [facility] Tobacco use and 2016-07-12 2016-07-12 Never used Universit y of exposure 00:00:00 00:00:00 [facility] Sex [birth year] MD [place] on 00:00:00 00:00:00 Smoking Status Start Date Stop Date Source Never smoker [facility] Medical Branch Medications Ordered Filled Start Stop Current Ordering Indication Dosage Frequency Signature Comments Components Source Medication Medication Date Date Medication? Clinician (SIG) Name Name carmeloxaban 5 2020-07 Yes [id number] 5mg Take 1 Unive rs mg tablet 1-23 tablet by ity o f 00:00: mouth 2 [place] 00 (two) Medical times Branch daily. Indication s: DVT prevention doxycycline 2020-07- Yes [id number] 100mg Take 1 Univers hyclate 100 0-18 10-29 tablet by it y of mg tablet 00:00: 04:59 mouth 2 [place] 00 :[place] (two) Medical times Branch daily for 10 days. metoprolol Yes metoprolol U nivers tartrate 8-16 tartrate ity of 100 mg 12:00: 100 mg [place] tablet 54 tablet Medical Branch metoprolol Yes metoprolol U nivers tartrate 50 8-16 tartrate ity of mg tablet 12:00: 50 mg [place] 54 tablet Medical TAKE 1 Branch TABLET TWICE DAILY *HOLD IF SBP LESS THAN 100 OR HR LESS THAN 60* metoprolol Yes metoprolol U nivers tartrate 8-16 tartrate ity of 100 mg 12:00: 100 mg [place] tablet 54 tablet Medical Branch metoprolol Yes metoprolol U nivers tartrate 50 8-16 tartrate ity of mg tablet 12:00: 50 mg [place] 54 tablet Medical TAKE 1 Branch TABLET TWICE DAILY *HOLD IF SBP LESS THAN 100 OR HR LESS THAN 60* diphenhydrA Yes Banophen [place] MINE 5-11 25 mg ity of (BANOPHEN) 12:04: capsule [place] 25 mg 09 TAKE 1 Medical capsule CAPSULE Branch EVERY 6 HOURS BY ORAL ROUTE. As needed for Iching clindamycin Yes clindamyci Univers 300 mg 5-11 n HCl 300 ity of capsule 12:04: mg capsule [place] 09 Medical Branch doxycycline Yes doxycyclin Univers hyclate 100 5-11 e hyclate ity of mg capsule 12:04: 100 mg 09 capsule Medical TAKE 1 Branch CAPSULE BY MOUTH TWICE A DAY dapaglifloz Yes Farxiga 10 Univers in 5-11 mg tablet ity of (FARXIGA) 12:04: 1 PO qd [place] 10 mg 09 Medical tablet Branch ferrous Yes ferrous Univers sulfate 325 5-11 sulfate ity o f mg (65 mg 12:04: 325 mg (65 [place] iron) 09 mg iron) Medical tablet tablet Branch TAKE 1 TABLET BY MOUTH EVERY DAY furosemide Yes furosemide U nivers 40 mg 5-11 40 mg ity of tablet 12:04: tablet 1 09 PO qd Medical Branch hydrocortis Yes hydrocorti Univers one 1 % 11-11 sone 1 % ity of cream 12:04: topical cream Medical APPLY A Branch THIN LAYER TO THE AFFECTED AREA(S) BY TOPICAL ROUTE NEEDED LACTOBACILL Yes Lactobacil Univers US -11 jw ity of ACIDOPHILUS 12:04: acidophilu [place] ORAL 09 s capsule Medical TAKE 1 Branch CAPSULE BY MOUTH EVERY DAY levothyroxi Yes levothyrox Univers ne 25 mcg 11-11 ine 25 mcg ity of tablet 12:04: tablet 09 TAKE 1 Medical TABLET BY Branch MOUTH EVERY DAY IN THE MORNING metOLazone Yes metolazone U nivers 5 mg tablet -11 5 mg ity of 12:04: tablet 09 Medical Branch midodrine 5 Yes midodrine U nivers mg tablet 11 5 mg ity of 12:04: tablet TAKE 1 Medical TABLET BY Branch MOUTH THREE TIMES A DAY omeprazole Yes omeprazole U nivers 40 mg -11 40 mg ity of capsule 12:04: capsule,de [place] 09 layed Medical release Branch insulin Yes Novolog Univers aspart -11 Flexpen ity of U-100 12:04: U-100 [place] (NOVOLOG 09 Insulin Medical FLEXPEN aspart 100 Branch U-100 unit/mL (3 INSULIN) mL) 100 unit/mL subcutaneo (3 mL) us sliding injection scale: based on blood sugar mupirocin 2 Yes mupirocin U nivers % ointment 11-11 2 % ity of 12:04: topical ointment Medical APPLY TO Branch AFFECTED AREA NEEDED DIRECTED semaglutide Yes Ozempic Uni vers (OZEMPIC) 5-11 0.25 mg or ity of 0.25 mg or 12:04: 0.5 mg (2 [place] 0.5 mg(2 09 mg/1.5 mL) Medic al mg/1.5 mL) subcutaneo [facility] PnIj us pen injector INJECT 0.5 MG EVERY WEEK BY SUBCUTANEO US ROUTE FOR 30 DAYS. semaglutide Yes Ozempic 1 U nivers (OZEMPIC) 1 5-11 mg/dose (2 it y of mg/dose (2 12:04: mg/1.5 mL) [place] mg/1.5 mL) 09 subcutaneo Med ical PnIj us pen Branch injector INJECT 1 MG EVERY WEEK BY SUBCUTANEO US ROUTE. pantoprazol Yes pantoprazo Univers e 40 mg EC 5-11 le 40 mg ity o f tablet 12:04: tablet,del 09 ayed Medical release Branch KCL 20 mEq Yes potassium [place] tablet 11-11 chloride ity of 12:04: ER 20 mEq tablet,ext Medical ended Branch release(pa rt/cryst) pramipexole Yes pramipexol Univers 0.75 mg 5-11 e 0.75 mg ity of tablet 12:04: tablet TAKE 1 Medical TABLET BY Branch MOUTH EVERYDAY AT BEDTIME pravastatin Yes pravastati Univers 40 mg 5-11 n 40 mg ity of tablet 12:04: tablet Take 1 Medical tablet Branch every day by oral route for 90 days. pregabalin Yes pregabalin U nivers 300 mg 5-11 300 mg ity of capsule 12:04: capsule Medical Branch sulfamethox Yes sulfametho Univers azole-trime 11-11 xazole 800 it y of thoprim 12:04: mg-trimeth [place] 800-160 mg 09 oprim 160 Medi shine per tablet mg tablet Bran ch traMADoL 50 Yes tramadol [place] mg tablet 11 50 mg ity of 12:04: tablet Medical Branch insulin Yes Tresiba Univers degludec 11-11 FlexTouch ity of (TRESIBA 12:04: U-100 [place] FLEXTOUCH 09 insulin Medical U-100) 100 100 Branch unit/mL (3 unit/mL (3 mL) InPn mL) subcutaneo us pen INJECT 60 UNIT(S) EVERY DAY BY SUBCUTANEO US ROUTE diphenhydrA Yes Banophen [place] MINE 11 25 mg ity of (BANOPHEN) 12:04: capsule [place] 25 mg 09 TAKE 1 Medical capsule CAPSULE Branch EVERY 6 HOURS BY ORAL ROUTE. As needed for Iching clindamycin Yes clindamyci Univers 300 mg 11-11 n HCl 300 ity of capsule 12:04: mg capsule [place] 09 Medical Branch doxycycline Yes doxycyclin Univers hyclate 100 11-11 e hyclate ity of mg capsule 12:04: 100 mg 09 capsule Medical TAKE 1 Branch CAPSULE BY MOUTH TWICE A DAY dapaglifloz Yes Farxiga 10 Univers in -11 mg tablet ity of (FARXIGA) 12:04: 1 PO qd [place] 10 mg 09 Medical tablet Branch ferrous Yes ferrous Univers sulfate 325 11-11 sulfate ity o f mg (65 mg 12:04: 325 mg (65 [place] iron) 09 mg iron) Medical tablet tablet Branch TAKE 1 TABLET BY MOUTH EVERY DAY furosemide Yes furosemide U nivers 40 mg 11-11 40 mg ity of tablet 12:04: tablet 1 09 PO qd Medical Branch hydrocortis Yes hydrocorti Univers one 1 % 11-11 sone 1 % ity of cream 12:04: topical cream Medical APPLY A Branch THIN LAYER TO THE AFFECTED AREA(S) BY TOPICAL ROUTE NEEDED LACTOBACILL Yes Lactobacil Univers US -11 jw ity of ACIDOPHILUS 12:04: acidophilu [place] ORAL 09 s capsule Medical TAKE 1 Branch CAPSULE BY MOUTH EVERY DAY levothyroxi Yes levothyrox Univers ne 25 mcg 11-11 ine 25 mcg ity of tablet 12:04: tablet 09 TAKE 1 Medical TABLET BY Branch MOUTH EVERY DAY IN THE MORNING metOLazone Yes metolazone U nivers 5 mg tablet 11-11 5 mg ity of 12:04: tablet [place] 09 Medical Branch midodrine 5 Yes midodrine U nivers mg tablet 11 5 mg ity of 12:04: tablet TAKE 1 Medical TABLET BY Branch MOUTH THREE TIMES A DAY omeprazole Yes omeprazole U nivers 40 mg -11 40 mg ity of capsule 12:04: capsule,de [place] layed Medical release Branch insulin Yes Novolog Univers aspart 11 Flexpen ity of U-100 12:04: U-100 [place] (NOVOLOG 09 Insulin Medical FLEXPEN aspart 100 Branch U-100 unit/mL (3 INSULIN) mL) 100 unit/mL subcutaneo (3 mL) us sliding injection scale: based on blood sugar mupirocin 2 Yes mupirocin U nivers % ointment 11-11 2 % ity of 12:04: topical ointment Medical APPLY TO Branch AFFECTED AREA NEEDED DIRECTED semaglutide Yes Ozempic Uni vers (OZEMPIC) 5-11 0.25 mg or ity of 0.25 mg or 12:04: 0.5 mg (2 [place] 0.5 mg(2 09 mg/1.5 mL) Medic al mg/1.5 mL) subcutaneo [facility] PnIj us pen injector INJECT 0.5 MG EVERY WEEK BY SUBCUTANEO US ROUTE FOR 30 DAYS. semaglutide Yes Ozempic 1 U nivers (OZEMPIC) 1 5-11 mg/dose (2 it y of mg/dose (2 12:04: mg/1.5 mL) [place] mg/1.5 mL) 09 subcutaneo Med ical PnIj us pen Branch injector INJECT 1 MG EVERY WEEK BY SUBCUTANEO US ROUTE. pantoprazol Yes pantoprazo Univers e 40 mg EC 11 le 40 mg ity o f tablet 12:04: tablet,del ayed Medical release Branch KCL 20 mEq Yes potassium [place] tablet 11-11 chloride ity of 12:04: ER 20 mEq tablet,ext Medical ended Branch release(pa rt/cryst) pramipexole Yes pramipexol Univers 0.75 mg 11 e 0.75 mg ity of tablet 12:04: tablet TAKE 1 Medical TABLET BY Branch MOUTH EVERYDAY AT BEDTIME pravastatin Yes pravastati Univers 40 mg 11-11 n 40 mg ity of tablet 12:04: tablet Take 1 Medical tablet Branch every day by oral route for 90 days. pregabalin Yes pregabalin U nivers 300 mg 11-11 300 mg ity of capsule 12:04: capsule Medical Branch sulfamethox Yes sulfametho Univers azole-trime 11-11 xazole 800 it y of thoprim 12:04: mg-trimeth [place] 800-160 mg 09 oprim 160 Medi shine per tablet mg tablet Bran ch traMADoL 50 Yes tramadol [place] mg tablet 11-11 50 mg ity of 12:04: tablet Medical Branch insulin Yes Tresiba Univers degludec 11-11 FlexTouch ity of (TRESIBA 12:04: U-100 [place] FLEXTOUCH 09 insulin Medical U-100) 100 100 Branch unit/mL (3 unit/mL (3 mL) InPn mL) subcutaneo us pen INJECT 60 UNIT(S) EVERY DAY BY SUBCUTANEO US ROUTE fluticasone Yes Arnuity Uni vers furoate 200 5-11 Ellipta ity o f mcg/actuati 11:53: 200 [place] on DsDv 04 mcg/actuat Medica l ion powder Branch for inhalation INHALE 1 PUFF BY MOUTH EVERY 24 HOURS fluticasone Yes Arnuity Uni vers furoate 200 5-11 Ellipta ity o f mcg/actuati 11:53: 200 [place] on DsDv 04 mcg/actuat Medica l ion powder Branch for inhalation INHALE 1 PUFF BY MOUTH EVERY 24 HOURS pramipexole Yes .75mg Take 0.75 Univers 0.75 mg 3-17 mg by ity of tablet 00:00: mouth at [place] 00 bedtime. Medical Branch pramipexole Yes .75mg Take 0.75 Univers 0.75 mg 3-17 mg by ity of tablet 00:00: mouth at [place] 00 bedtime. Medical Branch apixaban 5 2021-0 Yes 1475 5mg Take 1 Unive rs mg tablet 2-22 tablet by ity o f 00:00: mouth 2 [place] 00 (two) Medical times Branch daily. Indication s: deep vein thrombosis prevention apixaban 5 2020-0 2020- No 1475 5mg Take 1 Univ ers mg tablet 2-22 11-23 tablet by ity of 00:00: 00:00 mouth 2 [place] 00 :00 (two) Medical times Branch daily. Indication s: deep vein thrombosis prevention aspirin 2020-0 Yes 81mg Take 81 mg Univ ers (ASPIRIN 9-17 by mouth ity of LOW DOSE) 18:09: daily. [place] 81 mg EC 35 Medical tablet Branch latanoprost 2020-0 Yes 1[drp] Place 1 U nivers (XALATAN) 9-17 Drop in ity of 0.005 % 18:09: both eyes [place] ophthalmic 35 every Medical drops evening. Branch DOCUSATE 2019-0 Yes Take by Unive rs SODIUM 9-17 mouth. ity of (DULCOLAX 18:09: [place] STOOL 35 Medical SOFTENER, Branch DSS, ORAL) pantoprazol 2020-0 Yes 40mg Take 40 mg Univers e 9-17 by mouth ity of (PROTONIX) 18:09: daily. [place] 40 mg EC 35 Medical tablet Branch semaglutide 2019-0 Yes .5mg inject 0.5 Univers (OZEMPIC) 9-17 mg under ity of 0.25 mg or 18:09: the skin [place] as 0.5 mg(2 35 weekly. On Medic al mg/1.5 mL) Tuesday Branch PnIj aspirin 2019-0 Yes 81mg Take 81 mg Univ ers (ASPIRIN 9-17 by mouth ity of LOW DOSE) 18:09: daily. [place] 81 mg EC 35 Medical tablet Branch latanoprost 2020-0 Yes 1[drp] Place 1 U nivers (XALATAN) 9-17 Drop in ity of 0.005 % 18:09: both eyes [place] ophthalmic 35 every Medical drops evening. Branch DOCUSATE 2020-0 Yes Take by Unive rs SODIUM 9-17 mouth. ity of (DULCOLAX 18:09: [place] STOOL 35 Medical SOFTENER, Branch DSS, ORAL) pantoprazol 2020-0 Yes 40mg Take 40 mg Univers e 9-17 by mouth ity of (PROTONIX) 18:09: daily. [place] 40 mg EC 35 Medical tablet Branch semaglutide Yes .5mg inject 0.5 Univers (OZEMPIC) 9-17 mg under ity of 0.25 mg or 18:09: the skin [place] as 0.5 mg(2 35 weekly. On Medic al mg/1.5 mL) Tuesday Branch PnIj Insulin Yes [id number] Use as Uni vers Syringe-Nee 9-17 directed ity of dle U-100 00:00: [place] 0.3 mL 30 00 Medical gauge x Branch 1/2" Syrg Lancets Yes [id number] Use as Uni vers (ACCU-CHEK 9-17 directed ity o f MULTICLIX 00:00: [place] LANCET) 00 Medical [facility] Branch Insulin Yes [id number] Use as Uni vers Syringe-Nee 9-17 directed ity of dle U-100 00:00: [place] 0.3 mL 30 00 Medical gauge x Branch 1/2" Syrg Lancets Yes [id number] Use as Uni vers (ACCU-CHEK 9-17 directed ity o f MULTICLIX 00:00: [place] LANCET) 00 Medical [facility] Branch Insulin 2018-07 Yes [id number] Use as Uni vers [place], 2-30 directed, ity of Disposable, 00:00: once a [place] (BD INSULIN day, Medical PEN NEEDLE DX:E11.9 Branc h UF) 29 gauge x 1/2" Ndle Insulin 2018-07 Yes [id number] Use as Uni vers [place], 2-30 directed, ity of Disposable, 00:00: once a [place] (BD INSULIN day, Medical PEN NEEDLE DX:E11.9 Branc h UF) 29 gauge x 1/2" Ndle traMADol 50 2018-07 Yes [id number] TAKE 1 Univers mg tablet 1-24 TABLET BY ity o f 00:00: MOUTH [place] 00 EVERY 6 Medical HOURS Branch NEEDED FOR BREATKTHRO UGH NEUROPATHY PAIN IN FEET. traMADol 50 2018-07 Yes [id number] TAKE 1 Univers mg tablet 1-24 TABLET BY ity o f 00:00: MOUTH [place] 00 EVERY 6 Medical HOURS Branch NEEDED FOR BREATKTHRO UGH NEUROPATHY PAIN IN FEET. insulin Yes [id number] 65U inject 65 Univers degludec 9-12 Units ity of (TRESIBA 00:00: under the [facility] FLEXTOUCH 00 skin Medical U-100) 100 daily. Branch unit/mL (3 mL) InPn pregabalin 2019 Yes [id number] 300mg Take 1 Univers 300 mg 9-12 capsule by ity of capsule 00:00: mouth 2 (two) Medical times Branch daily. insulin 2019- Yes [id number] 65U inject 65 Univers degludec 9-12 Units ity of (TRESIBA 00:00: under the [facility] FLEXTOUCH 00 skin Medical U-100) 100 daily. Branch unit/mL (3 mL) InPn pregabalin Yes [id number] 300mg Take 1 Univers 300 mg 9-12 capsule by ity of capsule 00:00: mouth 2 (two) Medical times Branch daily. ACCU-CHEK Yes [id number] Take Uni vers PHILLIP strip 5-10 sugars 1-2 it y of 00:00: times a [place] 00 day, DX Medical E11.9 Branch ACCU-CHEK Yes [id number] Take Uni vers PHILLIP strip 5-10 sugars 1-2 it y of 00:00: times a [place] 00 day, DX Medical E11.9 Branch pravastatin 2015-07 Yes TAKE 1 Univ ers (PRAVACHOL) 0-03 TABLET BY ity of 40 mg 00:00: MOUTH AT [place] tablet 00 BEDTIME Medical Branch pravastatin 2015-07 Yes TAKE 1 Univ ers (PRAVACHOL) 0-03 TABLET BY ity of 40 mg 00:00: MOUTH AT [place] tablet 00 BEDTIME Medical Branch pramipexole Yes TAKE 1/2 [place] (MIRAPEX) 9-29 TABLET ity of 0.5 mg 00:00: EVERY [place] tablet 00 MORNING Medical AND 1 Branch TABLET EVERY EVENING pramipexole Yes TAKE 1/2 [place] (MIRAPEX) 9-29 TABLET ity of 0.5 mg 00:00: EVERY [place] tablet 00 MORNING Medical AND 1 Branch TABLET EVERY EVENING Immunizations Ordered Filled Immunization Date Status Comments Sour e Immunization Name Name Influenza High Dose 2019-04-15 Completed Unive rsity of 00:00:00 [facility] Influenza High Dose 2019-04-15 Completed Unive rsity of 00:00:00 [facility] Influenza High Dose 2018-04-24 Completed Unive rsity of 00:00:00 [facility] Influenza High Dose 2018-04-24 Completed Unive rsity of 00:00:00 [facility] Pneumococcal 2017-10-03 Completed University o f Polysaccharide, 00:00:00 [place] Med ical PPSV23 (PNEUMOVAX) Branch Pneumococcal 2017-10-03 Completed University o f Polysaccharide, 00:00:00 [place] Med ical PPSV23 (PNEUMOVAX) Branch Influenza High Dose 2017-04-13 Completed Unive rsity of 00:00:00 [facility] Influenza High Dose 2017-04-13 Completed Unive rsity of 00:00:00 [facility] Pneumococcal 13 2016-07-12 Completed Universit y of Conjugate, PCV13 00:00:00 [facility] dical (Prevnar 13) Branch Influenza High Dose 2016-07-12 Completed Unive rsity of 00:00:00 [facility] Pneumococcal 13 2016-07-12 Completed Universit y of Conjugate, PCV13 00:00:00 [place] Me dical (Prevnar 13) Branch Influenza High Dose 2016-07-12 Completed Unive rsity of 00:00:00 [facility] Pneumococcal 2011-06-19 Completed University o f Polysaccharide, 00:00:00 [place] Med ical PPSV23 (PNEUMOVAX) Branch Pneumococcal 2011-06-19 Completed University o f Polysaccharide, 00:00:00 [place] Med ical PPSV23 (PNEUMOVAX) Branch Pneumococcal 2011-05-05 Completed University o f Polysaccharide, 00:00:00 [place] Med ical PPSV23 (PNEUMOVAX) Branch TDAP 2011-05-05 Completed University of 00:00:00 [facility] Pneumococcal 2011-05-05 Completed University o f Polysaccharide, 00:00:00 [place] Med ical PPSV23 (PNEUMOVAX) Branch TDAP 2011-05-05 Completed University of 00:00:00 [facility] Vital Signs Vital Name Observation Time Observation Value Comments Source Systolic blood 2021-04-20 20:22:00 134 mm[Hg] Univer sity of pressure [facility] Diastolic blood 2021-04-20 20:22:00 73 mm[Hg] Unive rsity of pressure [facility] Heart rate 2021-04-20 20:22:00 94 /min [facility] Body temperature 2021-04-20 20:22:00 [facility] 2021-04-20 20:22:00 170.2 cm [facility] Body weight 2021-04-20 20:22:00 113.989 kg [facility] BMI 2021-04-20 20:22:00 39.36 kg/m2 [facility] Procedures This patient has no known procedures. Encounters Start End Encounter Admission Attending Care Care Encounter Source Date/Time Date/Time Type Type Clinicians Facility Department ID 2021-05-24 Outpatient ERICKSON_R [facility] [id number] 211 [facility] 04:54:44 [facility] 2021-05-23 Outpatient ERICKSON_R [facility] [id number] 210 [facility] 21:30:21 923 [facility] 2021-05-20 Outpatient ERICKSON_R [facility] [id number] 201 [facility] 14:03:16 229 [facility] 2021-05-19 Outpatient ERICKSON_R [facility] [id number] 211 [facility] 22[facility]41:30 115 [facility] 2021-05-19 Outpatient ERICKSON_R [facility] [id number] 210 [facility] 10:50:09 817 [facility] 2021-05-18 Outpatient ERICKSON_R [facility] [id number] 210 [facility] 16:19:30 713 [facility] 2021-05-17 Outpatient ERICKSON_R [facility] [id number] 210 [facility] 19:48:12 527 [facility] 2021-05-16 Outpatient ERICKSON_R [facility] [id number] 210 [facility] 22:09:09 429 [facility] 2021-05-16 Outpatient ERICKSON_R [facility] [id number] 210 [facility] 02:47:39 408 [facility] 2021-05-15 Outpatient ERICKSON_R [facility] [id number] 210 [facility] 21:58:35 309 [facility] 2021-05-15 Outpatient ERICKSON_[facility] [id number] 210 [facility] 19:15:44 209 [facility] 2021-05-15 Outpatient ERICKSON_R [facility] [id number] 210 [facility] 18:49:08 204 [facility] 2021-05-15 Outpatient ERICKSON_R [facility] [id number] 210 [facility] 18:00:47 201 [facility] 2021-05-15 Outpatient ERICKSON_R [facility] [id number] 210 [facility] 16:01:11 111 [facility] 2021-05-15 Outpatient ERICKSON_R [facility] [id number] 210 [facility] 15:45:07 107 [facility] 2021-05-01 Emergency [facility] [id number] Univers 17:37:15 [facility] 2021-05-01 Emergency [facility] [id number] Univers 17:11:08 [facility] 2021-05-01 Emergency [facility] [id number] Univers 12:10:06 [facility] 2021-11-10 2021-11-10 Outpatient Diogenes LOMELI, [facility] [id number] Univers 10:00:00 10:00:00 XENIA [id number] [facility] 2021-07-21 2021-07-21 Outpatient Diogenes BARKSDALE, [facility] [id number] Univers 10:30:00 10:30:00 SANDRA [id number] [facility] 2021-06-04 2021-06-04 Outpatient Diogenes LOMELI [facility] [id number] Univers 15:00:00 15:00:00 XENIA [id number] [facility] 2021-06-01 2021-06-01 [facility] [id number] Univers 10:15:00 10:15:00 ASYA [id number] [facility] 2021-06-01 2021-06-01 Outpatient R JILLIAN [facility] [id number] Univers 10:15:00 10:15:00 ASYA [facility] 2021-05-26 2021-05-26 Outpatient R TIMBO [facility] [id number] Univers 15:30:00 15:30:00 MAINOR [id number] ity o f [facility] 2021-05-26 2021-05-26 Outpatient R TIMBO [facility] [id number] Univers 15:30:00 15:30:00 MAINOR teixeiray o f [facility] 2021-05-26 2021-05-26 Outpatient QUINN_R [facility] [id number] [facility] 11:22:00 11:22:00 123 [facility] 2021-05-26 2021-05-26 Telephone GUERO Lomeli [id number] Univers 00:00:00 00:00:00 [id number] y of [facility] [id number] [place] as [id number] [place] [id number] [place] 2021-05-21 2021-05-21 Outpatient R ASHLEYBrock [facility] [id number] Univers 15:00:00 15:00:00 XENIA [id number] [facility] 2021-05-21 2021-05-21 Outpatient R EDOUARDALEXIABrock [facility] [id number] Univers 15:00:00 15:00:00 TEJO [facility] 2021-05-19 2021-05-19 Outpatient R SPENCERMANJIT [facility] [id number] Univers 13:55:00 14:36:21 SANDRA [facility] 2021-05-19 2021-05-19 Outpatient R GHISLAINESeth [facility] [id number] Univers 13:55:00 13:55:00 SANDRA [id number] [facility] 2021-05-18 2021-05-18 Outpatient Quinn [facility] [id number] 00:00:00 00:00:00 Armand [id number] Bernabe [id number] 2021-05-15 2021-05-15 Outpatient R SHAMIR, [facility] [id number] Univers 10:45:00 10:45:00 [facility]DR[facility] [id number] [facility] 2021-05-15 Outpatient R SHAMIR, [facility] [id number] Univers 10:45:00 10:45:00 SANDRA [facility] 2021-05-12 2021-05-12 Outpatient R ARMANI, [facility] [id number] Univers 11:40:00 11:40:00 TEJO [facility] 2021-05-12 2021-05-12 Outpatient R ARMANI, [facility] [id number] Univers 11:40:00 11:40:00 TEJO [id number] [facility] 2021-05-11 2021-05-11 Outpatient R [facility] [id number] Univers 10:00:00 10:00:00 [id number] [facility] 2021-05-11 2021-05-11 Outpatient R [facility] [id number] Univers 10:00:00 10:00:00 [facility] 2021-04-20 2021-04-20 Office LEEANNA MckayIT [id number] Univers 15:07:35 16:31:53 Visit Gary [facility] [id number] ity of [id number] [id number] [address] 2021-04-20 2021-04-20 Outpatient R DIVYA, [facility] [id number] Univers 15:30:00 15:30:00 GARY [id number] [facility] 2021-04-20 2021-04-20 [facility] [id number] Univers 15:30:00 15:30:00 GARY [facility] 2021-04-13 2021-04-13 [facility] [id number] 00:00:00 00:00:00 Armand [id number] Bernabe [id number] 2021-03-03 2021-03-03 [facility] [id number] Univers 14:15:00 14:15:00 GARY [id number] [facility] 2021-03-03 2021-03-03 [facility] [id number] Univers 00:00:00 00:00:00 [facility] 2021-02-26 2021-02-26 Outpatient [facility] [id number] Univers 15:00:00 15:00:00 [id number] [facility] 2021-02-26 2021-02-26 Outpatient R [facility] [id number] Univers 15:00:00 15:00:00 [facility] 2021-02-17 2021-02-17 Outpatient Quinn [facility] [id number] 00:00:00 00:00:00 Armand [id number] Bernabe [id number] 2021-02-16 2021-02-16 Outpatient R [facility] [id number] Univers 11:45:00 11:45:00 [id number] [facility] 2021-02-16 2021-02-16 [facility] [id number] Univers 11:45:00 11:45:00 MAINOR reardon o f [facility] 2021-02-12 2021-02-12 Outpatient [facility] [id number] Univers 13:00:00 13:00:00 [id number] ity [facility] 2021-02-10 2021-02-10 Outpatient R [facility] [id number] Univers 13:40:00 13:40:00 [id number] ity [facility] 2021-02-05 2021-02-05 Outpatient [facility] [id number] Univers 15:40:00 15:40:00 [id number] [facility] 2021-02-03 2021-02-03 Outpatient R [facility] [id number] Univers 15:40:00 15:40:00 [id number] ity of [facility] 2021-01-29 2021-01-29 Outpatient R [facility] [id number] Univers 15:00:00 15:00:00 [id number] ity of [facility] 2021-01-27 2021-01-27 Outpatient [facility] [id number] Univers 15:00:00 15:00:00 [id number] ity of [facility] 2021-01-22 2021-01-22 Outpatient [facility] [id number] Univers 15:00:00 15:00:00 [id number] ity of [facility] 2021-01-20 2021-01-20 Outpatient [facility] [id number] Univers 15:00:00 15:00:00 ity [facility] 2021-01-15 2021-01-15 Outpatient [facility] [id number] Univers 15:00:00 15:00:00 [id number] ity [facility] 2021-01-13 2021-01-13 Outpatient R [facility] [id number] Univers 15:00:00 15:00:00 [id number] ity [facility] 2021-01-13 2021-01-13 [facility] [id number] 00:00:00 00:00:00 Armand [id number] Bernabe [id number] 2021-01-05 2021-01-05 Outpatient R [facility] [id number] Univers 11:30:00 11:30:00 ity of [facility] 2021-01-05 2021-01-05 Outpatient R [facility] [id number] Univers 11:30:00 11:30:00 [id number] ity [facility] 2021-01-01 2021-01-01 Outpatient [facility] [id number] Univers 13:00:00 13:00:00 [id number] ity [facility] 2021-01-01 2021-01-01 Outpatient R SUZIE, [facility] [id number] Univers 13:00:00 13:00:00 PHILIPPE ity of [facility] 2020-12-29 2020-12-29 Outpatient [facility] [id number] Univers 16:40:00 16:40:00 [id number] ity of [facility] 2020-12-25 2020-12-25 Outpatient [facility] [id number] Univers 16:40:00 16:40:00 [id number] ity of [facility] 2020-12-23 2020-12-23 Outpatient R [facility] [id number] Univers 16:20:00 16:20:00 [id number] ity of [facility] 2020-12-18 2020-12-18 Outpatient [facility] [id number] Univers 13:00:00 13:00:00 [id number] ity of [facility] 2020-12-16 2020-12-16 Outpatient R [facility] [id number] Univers 13:00:00 13:00:00 [id number] ity of [facility] 2020 2020 Outpatient [facility] [id number] Univers 08:00:00 08:00:00 [id number] ity of [facility] 2020-12-10 2020-12-10 Outpatient R [facility] [id number] Univers 13:40:00 13:40:00 [id number] ity of [facility] 2020-12-09 2020-12-09 Outpatient R [facility] [id number] Univers 08:00:00 08:00:00 [id number] ity of [facility] 2020-12-02 2020-12-02 Outpatient R [facility] [id number] Univers 08:00:00 08:00:00 [id number] ity of [facility] 2020-12-02 2020-12-02 [facility] [id number] Univers 08:00:00 08:00:00 PHILIPPE ity [facility] 2020-11-28 2020-11-28 Outpatient R TIMBO, [facility] [id number] Univers 10:30:00 10:30:00 MAINOR [id number] ity o [facility] 2020-11-27 2020-11-27 Outpatient R [facility] [id number] Univers 14:40:00 14:40:00 [id number] [facility] 2020-11-27 2020-11-27 Outpatient R TIMBO [facility] [id number] Univers 14:40:00 14:40:00 MAINOR zhang [facility] 2020-11-27 2020-11-27 Outpatient Quinn [facility] [id number] 00:00:00 00:00:00 Armand [id number] Bernabe [id number] 2020-11-25 2020-11-25 Outpatient R TIMBO [facility] [id number] Univers 10:30:00 10:30:00 MAINOR [id number] caron zhang [facility] 2020-11-25 2020-11-25 Outpatient R TIMBO [facility] [id number] Univers 10:30:00 10:30:00 MAINOR teixeiraallison zhang [facility] 2020-11-11 2020-11-11 Outpatient R ALEXARGELIA [facility] [id number] Univers 11:40:00 11:40:00 XENIA [id number] [facility] 2020-11-11 2020-11-11 Outpatient R ALEXRAFAELBrock [facility] [id number] Univers 11:40:00 11:40:00 XENIA [facility] 2020-11-10 2020-11-10 Outpatient R [facility] [id number] Univers 10:00:00 10:00:00 [id number] [facility] 2020-11-10 2020-11-10 Outpatient R LAPCHADTA, [facility] [id number] Univers 10:00:00 10:00:00 CHUCHO [facility] 2020-11-04 2020-11-04 Outpatient R TIMBO [facility] [id number] Univers 09:00:00 09:00:00 MAINOR [id number] lluviaallison [facility] 2020-11-04 2020-11-04 Outpatient R TIMBO, [facility] [id number] Univers 09:00:00 09:00:00 MAINOR reardon vicente janet [facility] 2020-10-30 2020-10-30 Outpatient Ball, [facility] [id number] 00:00:00 00:00:00 Armand [id number] Bernabe [id number] 2020-10-09 2020-10-09 Outpatient Quinn [facility] [id number] 00:00:00 00:00:00 Armand [id number] Bernabe [id number] 2020-10-08 2020-10-08 Outpatient Diogenes CASE, [facility] [id number] Univers 11:00:00 11:00:00 JONNY [id number] [facility] 2020-10-08 2020-10-08 Outpatient Diogenes CASE, [facility] [id number] Univers 11:00:00 11:00:00 JONNY [facility] 2020-09-09 2020-09-09 Outpatient Quinn [facility] [id number] 00:00:00 00:00:00 Armand [id number] Bernabe [id number] 2020-08-07 2020-08-07 Outpatient Ball, [facility] [id number] 00:00:00 00:00:00 Armand [id number] Bernabe [id number] 2020-07-15 2020-07-15 Outpatient Diogenes LOMELI, [facility] [id number] Univers 11:40:00 11:40:00 XENIA [id number] [facility] 2020-07-15 2020-07-15 Outpatient Diogenes LOMELI, [facility] [id number] Univers 11:40:00 11:40:00 XENIA [facility] 2020-07-10 2020-07-10 Outpatient Quinn, [facility] [id number] 00:00:00 00:00:00 Armand [id number] Bernabe [id number] 2020-07-09 2020-07-09 Outpatient R CASE, [facility] [id number] Univers 11:30:00 11:30:00 JONNY [id number] [facility] 2020-07-09 2020-07-09 Outpatient R EVIE, [facility] [id number] Univers 11:30:00 11:30:00 JONNY [facility] 2020-07-08 2020-07-08 Outpatient R [facility] [id number] Univers 13:00:00 13:00:00 [id number] [facility] 2020-04-18 2020-04-18 Outpatient R TIMBO, [facility] [id number] Univers 08:30:00 08:30:00 MAINOR [id number] lluviaallison o [facility] 2020-04-18 2020-04-18 Outpatient R TIMBO, [facility] [id number] Univers 08:30:00 08:30:00 MAINOR zhang [facility] 2020-04-02 2020-04-02 Outpatient R EVIE, [facility] [id number] Univers 13:00:00 13:00:00 JONNY [facility] 2020-04-02 2020-04-02 Outpatient R EVIE, [facility] [id number] Univers 13:00:00 13:00:00 JONNY [facility] 2020-03-28 2020-03-28 Outpatient R ASHLEYU, [facility] [id number] Univers 09:00:00 09:00:00 XENIA [id number] [facility] 2020-03-28 2020-03-28 Outpatient R MUSUNRAFAELU, [facility] [id number] Univers 09:00:00 09:00:00 XENIA [facility] 2020-03-21 2020-03-21 Outpatient R TIMBO, [facility] [id number] Univers 08:00:00 08:00:00 MAINOR [id number] caron zhang [facility] 2020-03-21 2020-03-21 Outpatient R TIMBO, [facility] [id number] Univers 08:00:00 08:00:00 MAINOR gonzales [facility] 2020-03-20 2020-03-20 Outpatient R [facility] [id number] Univers 08:00:00 08:00:00 [id number] [facility] 2020-03-20 2020-03-20 Outpatient R NASIMA BLANCO, [facility] [id number] Univers 08:00:00 08:00:00 CHUCHO [facility] 2020-02-15 2020-02-15 Outpatient R ARMANI, [facility] [id number] Univers 11:00:00 11:00:00 XENIA [id number] [facility] 2020-02-15 2020-02-15 Outpatient R ARMANI, [facility] [id number] Univers 11:00:00 11:00:00 XENIA [facility] 2020-02-14 2020-02-14 Outpatient R TIMBO, [facility] [id number] Univers 08:15:00 08:15:00 MAINOR [id number] caron o [facility] 2020-02-14 2020-02-14 Outpatient R TIMBO, [facility] [id number] Univers 08:15:00 08:15:00 MAINOR gonzales [facility] 2020-01-18 2020-01-18 Outpatient R TIMBO [facility] [id number] Univers 08:15:00 08:15:00 MAINOR [id number] caron o janet [facility] 2020-01-18 2020-01-18 Outpatient R TIMBO [facility] [id number] Univers 08:15:00 08:15:00 MAINOR gonzales [facility] 2020-01-11 2020-01-11 Outpatient R TIMBO, [facility] [id number] Univers 10:15:00 10:15:00 MAINOR caron o janet [facility] 2020-01-11 2020-01-11 Outpatient R TIMBO, [facility] [id number] Univers 10:15:00 10:15:00 MAINOR gonzales [facility] 2020-01-04 2020-01-04 Outpatient R TIMBO, [facility] [id number] Univers 10:00:00 10:00:00 MAINOR [id number] caron zhang [facility] 2020-01-04 2020-01-04 Outpatient R [facility] [id number] Univers 10:00:00 10:00:00 MAINOR reardon vicente [facility] 2019-11-02 2019-11-02 Outpatient R [facility] [id number] Univers 10:15:00 10:15:00 MANIOR caron [facility] 2019-11-02 2019-11-02 Outpatient R [facility] [id number] Univers 10:15:00 10:15:00 MAINOR zhang [facility] 2019-09-27 2019-09-27 Outpatient R [facility] [id number] Univers 11:00:00 11:00:00 MAINOR zhang [facility] 2019-09-18 2019-09-18 Outpatient R [facility] [id number] Univers 10:00:00 10:00:00 [facility] Results This patient has no known results.
--- NOTE | 2021-05-29 10:25 | RAD REPORT ---
EXAM DESCRIPTION: CT - Head C Spine Cap Wo Con - 05/29/2021 9:55 am TECHNIQUE: Computed axial tomography of the head and cervical spine was obtained. Coronal and sagitt al reconstruction was performed Computed axial tomography of the chest, abdomen and pelvis was obtained. Contrast was not requested. All CT scans are performed using dose optimization technique as appropriate and may include automated exposure control or mA/KV adjustment according to patient size. CLINICAL HISTORY: Head and neck injury with chest and abdominal pain status post fall COMPARISON: CT May 2021 FINDINGS: An intracranial bleed is not seen. The ventricles are normal in caliber. An extra-axial fluid collection is not noted. . Fluid within the sinuses/mastoids is not seen. A cervical fracture is not seen. No dislocation is noted. Postsurgical changes involve the cervical s pine. Spondylosis is present. The evaluation of mediastinum, daljit, vessels, solid organs and bowel are limited secondary to the lac k of contrast administration. A mediastinal hematoma is not noted. A pleural effusion is not seen. A lung contusion is not present. The liver,spleen, pancreas, adrenals,kidneys and bladder do not demonstrate a traumatic injury. Cholelithiasis without gallbladder wall thickening. Atherosclerotic disease. Spondylosis involves the lumbar spine resulting spinal stenosis IMPRESSION: 1. No acute intracranial abnormality is seen. 2. A cervical fracture is not visualized. If the patient continues have symptoms to suggest intracran ial/spinal cord pathology MRI be recommended 3. No traumatic abnormality involving the chest/abdomen/pelvis.
[2021-05-29] MEDS ORDERED: ONDANSETRON 4 MG/2 ML VIAL ONE (10:39)
[2021-05-29] MEDS ORDERED: NA CHLORIDE 0.9% 0 ML ONE (10:39)
[2021-05-29] MEDS ORDERED: FAMOTIDINE 20 MG/2 ML VIAL IV ONE (10:40)
[2021-05-29 11:17] LABS: Absolute Lymphocytes (CBC) 0.4 K/uL (0.7-4.9); Basophils % 0.4 % (0-1.3); Hematocrit 33.3 % (36.0-45.0); Lymphocytes % 3.1 % (15.3-44.8); MPV 8.3 fL (7.6-11.3); RBC Red Blood Cell Count 4.19 M/uL (3.86-4.86)
[2021-05-29 11:29] LABS: Potassium 3.9 mmol/L (3.5-5.1)
--- NOTE | 2021-05-29 11:33 | RAD REPORT ---
EXAM DESCRIPTION: RAD - Knee Left 3 View - 05/29/2021 10:07 am CLINICAL HISTORY: Left knee pain status post injury FINDINGS: No fracture or dislocation is seen. Osteoporosis. Soft tissue swelling
[2021-05-29] MEDS ORDERED: IBUPROFEN 200 MG TAB PO ONE (12:08)
[2021-05-29] MEDS ORDERED: IBUPROFEN 400 MG TAB ONE (12:08)
[2021-05-29 12:31] LABS: White Blood Cell Scan OK (OK)
[2021-05-29 12:32] LABS: Blood Morphology Comment NOT SEEN (NOT SEEN); Platelet Estimate ADEQ
[2021-05-29] MEDS ORDERED: NA CHLORIDE 0.9% 500 ML ONE (13:17)
[2021-05-29] MEDS ORDERED: NA CHLORIDE 0.9% 1,000 ML ONE (18:04)
[2021-05-29] MEDS ORDERED: LORazepam 2 MG/ML VIAL ONE (18:22)
--- NOTE | 2021-05-29 18:40 | EDPHYS ---
Physician Documentation [facility] Name: Stephany Bran Age: 75 yrs Sex: Female : 1945 Arrival Date: 05/29/2021 Time: : Bed 8 Private MD: ED Physician Wale Dozier HPI: 05/29 10:41 This 75 yrs old Female presents to ER via EMS with complaints of Fall Injury. kdr 10:41 Details of fall: The patient fell from an upright position, while standing. Onset: The kdr symptoms/episode began/occurred suddenly, just prior to arrival. Associated injuries: The patient sustained injury to the head, posterior aspect of left knee, medial aspect of left knee and left knee. Severity of symptoms: At their worst the symptoms were mild, moderate, just prior to arrival, in the emergency department the symptoms are unchanged. The patient has not experienced similar symptoms in the past. The patient has not recently seen a physician. Patient states that she was fine yesterday but went to bed and was awakened with nausea and vomiting. She indicated that she was vomiting all night. She states that she awoke with nausea and attempted to get up to vomit but slipped on prior emesis and fell to the floor striking her head. She now complains of hematoma to her occiput. She denies LOC but otherwise was generally uncomfortable from all the vomiting. Historical: - Allergies: 09:31 Ciprofloxacin; 09:31 Demerol; 7 09:31 Erythromycin; jl7 09:31 Losartan; 7 09:31 MACROLIDES; jl7 09:31 metronidazole; jl 09:31 PENICILLINS; jl 09:31 pentoxifylline; 7 09:31 Codeine; jl7 - Home Meds: 18:55 aspirin 81 mg Oral chew 1 tab once daily [Active]; Farxiga 10 mg Oral tab 1 tab once jl7 daily [Active]; ferrous sulfate 325 mg (65 mg iron) Oral TbEC 325 mg daily [Active]; Tresiba FlexTouch U-100 subcutaneous [Active]; furosemide 40 mg Oral tab 1 tab once daily [Active]; Eliquis 5 mg oral tab 1 tab 2 times per day [Active]; midodrine 5 mg Oral tab 1 tabs 3 times per day [Active]; pregabalin 300 mg Oral cap 1 cap 2 times per day [Active]; potassium chloride 20 mEq Oral TbER 1 tab once daily [Active]; pravastatin 40 mg Oral tab 1 tab once daily [Active]; pramipexole 0.75 mg Oral Tb24 1 tab once daily [Active]; levothyroxine 25 mcg tab 1 tab once daily [Active]; - PMHx: 09:31 Bronchitis; Diabetes - NIDDM; Hyperlipidemia; Hypertension; Hypothyroidism; Cellulitis; jl7 Kidney disease; Glaucoma; lymphedema; - Immunization history:: Adult Immunizations up to date. - Social history:: Smoking status: Patient denies any tobacco usage or history of. - Immunization history: Last tetanus immunization: unknown. ROS: 10:41 Constitutional: Negative for fever, chills, and weight loss, Eyes: Negative for injury, kdr pain, redness, and discharge, ENT: Negative for injury, pain, and discharge, Neck: Negative for injury, pain, and swelling, Cardiovascular: Negative for chest pain, palpitations, and edema, Respiratory: Negative for shortness of breath, cough, wheezing, and pleuritic chest pain, Back: Negative for injury and pain, : Negative for injury, bleeding, discharge, and swelling, MS/Extremity: Negative for injury and deformity, Skin: Negative for injury, rash, and discoloration, Psych: Negative for depression, anxiety, suicide ideation, homicidal ideation, and hallucinations, Allergy/Immunology: Negative for hives, rash, and allergies, Endocrine: Negative for neck swelling, polydipsia, polyuria, polyphagia, and marked weight changes, Hematologic/Lymphatic: Negative for swollen nodes, abnormal bleeding, and unusual bruising. 10:41 Abdomen/GI: Positive for nausea and vomiting, Negative for diarrhea, constipation, abdominal cramps, abdominal distension, anorexia, dysphagia, hematemesis, black/tarry stool, rectal pain, rectal bleeding. Exam: 10:41 Constitutional: This is a well developed, well nourished patient who is awake, alert, kdr and in no acute distress. Head/Face: Normocephalic, patient has a small hematoma to the left occiput Eyes: Pupils equal round and reactive to light, extra-ocular motions intact. Lids and lashes normal. Conjunctiva and sclera are non-icteric and not injected. Cornea within normal limits. Periorbital areas with no swelling, redness, or edema. Neck: Trachea midline, no thyromegaly or masses palpated, and no cervical lymphadenopathy. Supple, full range of motion without nuchal rigidity, or vertebral point tenderness. No Meningismus. Chest/axilla: Normal chest wall appearance and motion. Nontender with no deformity. No lesions are appreciated. Cardiovascular: Regular rate and rhythm with a normal S1 and S2. No gallops, murmurs, or rubs. Normal PMI, no JVD. No pulse deficits. Respiratory: Lungs have equal breath sounds bilaterally, clear to auscultation and percussion. No rales, rhonchi or wheezes noted. No increased work of breathing, no retractions or nasal flaring. Abdomen/GI: Soft, non-tender, with normal bowel sounds. No distension or tympany. No guarding or rebound. No evidence of tenderness throughout. Back: No spinal tenderness. No costovertebral tenderness. Full range of motion. MS/ Extremity: Pulses equal, no cyanosis. Neurovascular intact. Full, normal range of motion. Neuro: Awake and alert, GCS 15, oriented to person, place, time, and situation. Cranial nerves II-XII grossly intact. Motor strength 5/5 in all extremities. Sensory grossly intact. Cerebellar exam normal. Normal gait. Psych: Awake, alert, with orientation to person, place and time. Behavior, mood, and affect are within normal limits. 10:41 Musculoskeletal/extremity: The patient complains of minor left knee pain posteriorly. She has limited range of motion which is chronic and not new. 10:41 Skin: Patient has chronic venous stasis disease to her bilateral lower extremities. Both are very erythematous and the skin is indurated which appears to be chronic. Vital Signs: 09:28 BP 138 / 71; Pulse 99; Resp 19; Temp 99.2; Pulse Ox 95% ; jl7 10:15 BP 153 / 54; Pulse 115; Resp 17; Pulse Ox 95% ; Weight 113.4 kg; Height 5 ft. 7 in. jl7 (170.18 cm); Pain 7/10; 11:00 BP 139 / 60; Pulse 113; Resp 17; Pulse Ox 96% ; jl7 11:45 BP 171 / 86; Pulse 119; Resp 21; Temp 100.5(O); Pulse Ox 97% ; jl7 12:30 BP 172 / 67; Pulse 119; Resp 21; Pulse Ox 92% ; jl7 13:15 BP 144 / 75; Pulse 109; Resp 20; Temp 100.1(O); Pulse Ox 95% ; jl7 14:00 BP 154 / 72; Pulse 115; Resp 19; Temp 98.9(O); Pulse Ox 94% ; jl7 14:45 BP 140 / 65; Pulse 113; Resp 19; Pulse Ox 97% ; jl7 15:30 BP 125 / 61; Pulse 120; Resp 20; Pulse Ox 96% ; jl7 16:15 BP 153 / 96; Pulse 119; Resp 19; Pulse Ox 96% ; jl7 17:00 BP 155 / 103; Pulse 128; Resp 15; Pulse Ox 99% ; jl7 17:45 BP 157 / 99; Pulse 119; Resp 19; Pulse Ox 95% ; jl7 18:30 BP 157 / 97; Pulse 113; Resp 19; Pulse Ox 91% on R/A; jl7 20:08 BP 142 / 96; Pulse 118; Resp 18; Pulse Ox 93% ; df1 10:15 Body Mass Index 39.16 (113.40 kg, 170.18 cm) jl7 Arik Coma Score: 09:28 Eye Response: spontaneous(4). Verbal Response: oriented(5). Motor Response: obeys jl7 commands(6). Total: 15. 10:15 Eye Response: spontaneous(4). Verbal Response: oriented(5). Motor Response: obeys jl7 commands(6). Total: 15. 11:00 Eye Response: spontaneous(4). Verbal Response: oriented(5). Motor Response: obeys jl7 commands(6). Total: 15. 11:45 Eye Response: spontaneous(4). Verbal Response: oriented(5). Motor Response: obeys jl7 commands(6). Total: 15. 12:30 Eye Response: to voice(3). Verbal Response: oriented(5). Motor Response: obeys jl7 commands(6). Total: 14. 13:15 Eye Response: to voice(3). Verbal Response: oriented(5). Motor Response: obeys jl7 commands(6). Total: 14. 14:00 Eye Response: to voice(3). Verbal Response: oriented(5). Motor Response: obeys jl7 commands(6). Total: 14. 14:45 Eye Response: to voice(3). Verbal Response: oriented(5). Motor Response: obeys jl7 commands(6). Total: 14. 15:30 Eye Response: spontaneous(4). Verbal Response: oriented(5). Motor Response: obeys jl7 commands(6). Total: 15. 16:15 Eye Response: spontaneous(4). Verbal Response: oriented(5). Motor Response: obeys jl7 commands(6). Total: 15. 17:00 Eye Response: spontaneous(4). Verbal Response: oriented(5). Motor Response: obeys jl7 commands(6). Total: 15. 17:45 Eye Response: spontaneous(4). Verbal Response: oriented(5). Motor Response: obeys jl7 commands(6). Total: 15. 18:30 Eye Response: spontaneous(4). Verbal Response: oriented(5). Motor Response: obeys jl7 commands(6). Total: 15. Trauma Score (Adult): 09:28 Eye Response: spontaneous(1); Verbal Response: oriented(1); Motor Response: obeys jl7 commands(2); Systolic BP: > 89 mm Hg(4); Respiratory Rate: 10 to 29 per min(4); Arik Score: 15; Trauma Score: 12 MDM: 12:26 Data reviewed: vital signs, nurses notes, lab test result(s), radiologic studies. kdr Counseling: I had a detailed discussion with the patient and/or guardian regarding: the historical points, exam findings, and any diagnostic results supporting the discharge/admit diagnosis, lab results, radiology results, the need for outpatient follow up. 18:32 ED course: Continue to be short of breath and mildly tachycardic in the ED despite kdr fluid challenges and pain control. 18:39 Patient medically screened. kdr 05/29 10:18 Order name: CBC with Diff; Complete Time: 12:33 kdr 05/29 10:18 Order name: Chem 7; Complete Time: 11:50 kdr 05/29 12:32 Order name: CBC Smear Scan; Complete Time: 12:33 EDMS 05/29 12:39 Order name: Procalcitonin; Complete Time: 14:20 kdr 05/29 12:39 Order name: Lactate; Complete Time: 16:32 kdr 05/29 16:33 Order name: Procalcitonin kdr 05/29 09:37 Order name: Knee Left 3 View XRAY; Complete Time: 11:50 em1 05/29 09:37 Order name: CT Traumagram (Head C Spine CAP wo con); Complete Time: 10:48 em1 05/29 17:58 Order name: CT Chest For PE Angio kdr 05/29 18:47 Order name: Urine Dipstick-Ancillary EDMS 05/29 19:02 Order name: COVID-19 SARS RT PCR (Document "Date of Onset" if Symptomatic) df1 05/29 19:03 Order name: SARS-COV-2 RT PCR EDMS 05/29 11:51 Order name: PO challenge; Complete Time: 13:33 kdr Administered Medications: 11:05 Drug: Zofran (Ondansetron) 4 mg Route: IVP; Site: right forearm; jl7 11:30 Follow up: Response: No adverse reaction; Nausea is decreased jl7 11:05 Drug: NS 0.9% 500 ml Route: IV; Rate: bolus; Site: right forearm; jl7 11:30 Follow up: Response: No adverse reaction; IV Status: Completed infusion; IV Intake: jl7 500ml 11:07 Drug: Pepcid (famotidine) 20 mg Route: IVP; Site: right forearm; jl7 13:33 Follow up: Response: No adverse reaction jl7 12:10 Drug: Motrin (ibuprofen) 600 mg Route: PO; jl7 14:01 Follow up: Response: No adverse reaction; Temperature is decreased jl7 13:24 Drug: NS 0.9% 500 ml Route: IV; Rate: bolus; Site: right forearm; jl7 14:00 Follow up: Response: No adverse reaction; IV Status: Completed infusion; IV Intake: jl7 500ml 18:30 Drug: NS 0.9% 1000 ml Route: IV; Rate: 1 bolus; Site: left antecubital; jl7 18:30 Drug: Ativan (LORazepam) 1 mg Route: IVP; Site: right antecubital; jl7 18:54 Follow up: Response: No adverse reaction jl7 Disposition Summary: 05/29/21 18:39 Hospitalization Ordered Hospitalization Status: Observation kdr Provider: Perez Gupta Location: Telemetry/MedSurg (Inpatient) kdr Condition: Fair kdr Problem: new kdr Symptoms: are unchanged kdr Bed/Room Type: Standard kdr Room Assignment: 208(05/29/21 20:38) cg Diagnosis - Weakness kdr - Vomiting kdr - Tachycardia, unspecified kdr Forms: - Medication Reconciliation Form kdr - SBAR form kdr Signatures: Dispatcher [employer] Wale Garcia MD MD kdr Radha Acuna RN RN Jesusita Gonzalez RN RN jl7 Corrections: (The following items were deleted from the chart) 20:38 18:39 kdr cg
--- NOTE | 2021-05-29 18:40 | ER ---
Nurse's Notes [facility] Name: Stephany Bran Age: 75 yrs Sex: Female : 1945 Arrival Date: 05/29/2021 Time: :31 Bed 8 Private MD: Diagnosis: Weakness;Vomiting;Tachycardia, unspecified Presentation: 05/29 09:27 Chief complaint: EMS states: Pt slipped on vomit and hit her head on the nightstand, jl7 hematoma to right posterior head, pt takes Eliquis. Reports N/V since 199. :27 Acuity: NGA 2 jl7 09:27 Mechanism of Injury: Fall from standing position. Trauma event details: Injury occurred jl7 in the [facility], Injury occurred: at home. Injury occurred: May 29, 2021 Injury occurred at: 08:30. 09:27 Method Of Arrival: EMS: [facility] :27 Coronavirus screen: Vaccine status: Patient reports receiving the 2nd dose of the covid jl7 vaccine. fever, nausea, vomiting. Client presents with at least one sign or symptom that may indicate coronavirus-19. Standard/surgical mask placed on the client. Provider contacted for isolation considerations. Ebola Screen: No symptoms or risks identified at this time. Initial Sepsis Screen: Does the patient meet any 2 criteria? No. Patient's initial sepsis screen is negative. Does the patient have a suspected source of infection? No. Patient's initial sepsis screen is negative. Risk Assessment: Do you want to hurt yourself or someone else? Patient reports no desire to harm self or others. Onset of symptoms was May 29, 2021 at 02:00. Care prior to arrival: Medication(s) given: zofran 4 mg, Ofirmev, 1000 mg IV initiated. 20 GA, in the right forearm, Glucose check: 257. 09:27 Transition of care: patient was not received from another setting of care. [facility] :27 Care prior to arrival: Medication(s) given: zofran 4 mg, IV initiated. 20 GA, in the jl7 right forearm, Glucose check: 257. Triage Assessment: : General: Appears in no apparent distress. uncomfortable, Behavior is calm, cooperative, jl7 appropriate for age. Pain: Complains of pain in right mastoid area Pain currently is 7 out of 10 on a pain scale. Neuro: Level of Consciousness is awake, alert, obeys commands, Oriented to person, place, time, situation. Cardiovascular: Denies chest pain, Patient's skin is warm and dry. Rhythm is irregular. Respiratory: Airway is patent Respiratory effort is even, unlabored, Respiratory pattern is regular, symmetrical, Denies shortness of breath. GI: Reports nausea, vomiting. Derm: Skin is pink, warm \\T\\ dry. Musculoskeletal: Swelling present in right leg and left leg. Trauma Activation: Alert Physician: ED Physician; Name: Jacoby; Notified At: 09:27; Arrived At: 09:27 Physician: General Surgeon; Name: ; Notified At: 09:27; Arrived At: Physician: Radiology; Name: Pavithra; Notified At: 09:27; Arrived At: 09:28 Physician: Respiratory; Name: ; Notified At: 09:27; Arrived At: Physician: Lab; Name: ; Notified At: 09:27; Arrived At: Historical: - Allergies: 09:31 Ciprofloxacin; jl7 09:31 Demerol; jl7 09:31 Erythromycin; jl7 09:31 Losartan; jl7 09:31 MACROLIDES; jl7 09:31 metronidazole; jl7 09:31 PENICILLINS; jl7 09:31 pentoxifylline; jl7 09:31 Codeine; jl7 - Home Meds: 18:55 aspirin 81 mg Oral chew 1 tab once daily [Active]; Farxiga 10 mg Oral tab 1 tab once jl7 daily [Active]; ferrous sulfate 325 mg (65 mg iron) Oral TbEC 325 mg daily [Active]; Tresiba FlexTouch U-100 subcutaneous [Active]; furosemide 40 mg Oral tab 1 tab once daily [Active]; Eliquis 5 mg oral tab 1 tab 2 times per day [Active]; midodrine 5 mg Oral tab 1 tabs 3 times per day [Active]; pregabalin 300 mg Oral cap 1 cap 2 times per day [Active]; potassium chloride 20 mEq Oral TbER 1 tab once daily [Active]; pravastatin 40 mg Oral tab 1 tab once daily [Active]; pramipexole 0.75 mg Oral Tb24 1 tab once daily [Active]; levothyroxine 25 mcg tab 1 tab once daily [Active]; - PMHx: 09:31 Bronchitis; Diabetes - NIDDM; Hyperlipidemia; Hypertension; Hypothyroidism; Cellulitis; jl7 Kidney disease; Glaucoma; lymphedema; - Immunization history:: Adult Immunizations up to date. - Social history:: Smoking status: Patient denies any tobacco usage or history of. - Immunization history: Last tetanus immunization: unknown. Screenin:27 Abuse screen: Denies threats or abuse. Denies injuries from another. Tuberculosis jl7 screening: No symptoms or risk factors identified. 10:00 Nutritional screening: No deficits noted. Fall Risk Fall in past 12 months (25 points). jl7 IV access (20 points). Gait- Weak (10 pts.). Mental Status- Overestimates/Forgets Limitations (15 pts.). Total Serrano Fall Scale indicates High Risk Score (45 or more points). Fall prevention measures have been instituted. Side Rails Up X 2 Placed Close to Nursing Station Frequent Obs/Assessments Occuring Family Present and informed to notify staff if the need to leave the bedside As available patient and family educated on Fall Prevention Program and Strategies. Primary Survey: :27 NO uncontrolled hemorrhage observed. A: Airway: patent. Breathing/Chest: Respiratory jl7 pattern: regular, Respiratory effort: spontaneous, unlabored, Breath sounds: clear, bilaterally. Chest inspection: symmetrical rise and fall of the chest. Circulation: Cardiac rhythm: atrial fibrillation Heart tones present. Pulses: palpable right radial artery and left radial artery. Skin color: pink, Skin temperature: warm. Disability Alert. Exposure/Environment: All clothing and personal items were removed. Forensic evidence collection is not deemed to be indicated at this time. Items placed in patient belonging bag. There is no evidence of uncontrolled external bleeding. Obvious injury(ies) are noted at this time: Hematoma to right posterior head A warming method has been applied: A warm blanket has been provided to the patient. 10:00 Reassessment Airway Airway Patent Breathing/Chest Respiratory pattern Regular jl7 Respiratory effort Spontaneous Unlabored Chest inspection Symmetrical Circulation Color [place] Temperature Warm Disability Alert. Assessment: 09:30 General: See triage assessment. jl7 10:00 Reassessment: Daughter at bedside. jl7 12:00 Reassessment: Pt moaning and c/o aching all over, pt's temp is 100.5, Dr. Dozier [facility] notified, VO for 600 mg Motrin PO. 13:00 Reassessment: Patient appears in no apparent distress at this time. Patient and/or jl7 family updated on plan of care and expected duration. Pain level reassessed. pt laying in bed with eyes closed, respirations even and unlabored, no signs of distress noted at this time. 14:00 Reassessment: Patient appears in no apparent distress at this time. No changes from jl7 previously documented assessment. Patient and/or family updated on plan of care and expected duration. Pain level reassessed. daughter remains at bedside. 15:00 Reassessment: Patient appears in no apparent distress at this time. No changes from jl7 previously documented assessment. Patient and/or family updated on plan of care and expected duration. Pain level reassessed. 16:00 Reassessment: Patient appears in no apparent distress at this time. No changes from jl7 previously documented assessment. Patient and/or family updated on plan of care and expected duration. Pain level reassessed. 17:00 Reassessment: Patient appears in no apparent distress at this time. Patient and/or jl7 family updated on plan of care and expected duration. Pain level reassessed. Patient is alert, oriented x 3, equal unlabored respirations, skin warm/dry/pink. Pt position readjusted to sitting position at this time, no signs of distress noted, pt requesting to be discharged to go home. 18:30 Reassessment: Dr. Dozier at bedside discussing results and POC with pt and family. jl7 Vital Signs: 09:28 BP 138 / 71; Pulse 99; Resp 19; Temp 99.2; Pulse Ox 95% ; jl7 10:15 BP 153 / 54; Pulse 115; Resp 17; Pulse Ox 95% ; Weight 113.4 kg; Height 5 ft. 7 in. jl7 (170.18 cm); Pain 7/10; 11:00 BP 139 / 60; Pulse 113; Resp 17; Pulse Ox 96% ; jl7 11:45 BP 171 / 86; Pulse 119; Resp 21; Temp 100.5(O); Pulse Ox 97% ; jl7 12:30 BP 172 / 67; Pulse 119; Resp 21; Pulse Ox 92% ; jl7 13:15 BP 144 / 75; Pulse 109; Resp 20; Temp 100.1(O); Pulse Ox 95% ; jl7 14:00 BP 154 / 72; Pulse 115; Resp 19; Temp 98.9(O); Pulse Ox 94% ; jl7 14:45 BP 140 / 65; Pulse 113; Resp 19; Pulse Ox 97% ; jl7 15:30 BP 125 / 61; Pulse 120; Resp 20; Pulse Ox 96% ; jl7 16:15 BP 153 / 96; Pulse 119; Resp 19; Pulse Ox 96% ; jl7 17:00 BP 155 / 103; Pulse 128; Resp 15; Pulse Ox 99% ; jl7 17:45 BP 157 / 99; Pulse 119; Resp 19; Pulse Ox 95% ; jl7 18:30 BP 157 / 97; Pulse 113; Resp 19; Pulse Ox 91% on R/A; jl7 20:08 BP 142 / 96; Pulse 118; Resp 18; Pulse Ox 93% ; df1 10:15 Body Mass Index 39.16 (113.40 kg, 170.18 cm) 7 Arik Coma Score: 09:28 Eye Response: spontaneous(4). Verbal Response: oriented(5). Motor Response: obeys jl7 commands(6). Total: 15. 10:15 Eye Response: spontaneous(4). Verbal Response: oriented(5). Motor Response: obeys jl7 commands(6). Total: 15. 11:00 Eye Response: spontaneous(4). Verbal Response: oriented(5). Motor Response: obeys jl7 commands(6). Total: 15. 11:45 Eye Response: spontaneous(4). Verbal Response: oriented(5). Motor Response: obeys jl7 commands(6). Total: 15. 12:30 Eye Response: to voice(3). Verbal Response: oriented(5). Motor Response: obeys jl7 commands(6). Total: 14. 13:15 Eye Response: to voice(3). Verbal Response: oriented(5). Motor Response: obeys jl7 commands(6). Total: 14. 14:00 Eye Response: to voice(3). Verbal Response: oriented(5). Motor Response: obeys jl7 commands(6). Total: 14. 14:45 Eye Response: to voice(3). Verbal Response: oriented(5). Motor Response: obeys jl7 commands(6). Total: 14. 15:30 Eye Response: spontaneous(4). Verbal Response: oriented(5). Motor Response: obeys jl7 commands(6). Total: 15. 16:15 Eye Response: spontaneous(4). Verbal Response: oriented(5). Motor Response: obeys jl7 commands(6). Total: 15. 17:00 Eye Response: spontaneous(4). Verbal Response: oriented(5). Motor Response: obeys jl7 commands(6). Total: 15. 17:45 Eye Response: spontaneous(4). Verbal Response: oriented(5). Motor Response: obeys jl7 commands(6). Total: 15. 18:30 Eye Response: spontaneous(4). Verbal Response: oriented(5). Motor Response: obeys jl7 commands(6). Total: 15. Trauma Score (Adult): 09:28 Eye Response: spontaneous(1); Verbal Response: oriented(1); Motor Response: obeys jl7 commands(2); Systolic BP: > 89 mm Hg(4); Respiratory Rate: 10 to 29 per min(4); Arik Score: 15; Trauma Score: 12 ED Course: 09:27 Patient has correct armband on for positive identification. Placed in gown. Bed in low jl7 position. Call light in reach. Side rails up X 1. 09:27 Arm band placed on right wrist. jl7 09:27 Patient maintains SpO2 saturation greater than 95% on room air. Thermoregulation: warm jl7 blanket given to patient. 09:30 wheel tuner on. Pulse ox on. NIBP on. Warm blanket given. jl7 09:31 Patient arrived in ED. mh5 09:41 Wale Dozier MD is Attending Physician. kdr 09:48 Jesusita Livingston RN is Primary Nurse. jl7 09:51 Triage completed. jl7 09:55 CT Traumagram (Head C Spine CAP wo con) In Process Unspecified. EDMS 10:06 Knee Left 3 View XRAY In Process Unspecified. EDMS 10:15 Initial lab(s) drawn, by me, sent to lab. Maintain EMS IV. Dressing intact. Good blood jl7 return noted. Site clean \\T\\ dry. Gauge \\T\\ site: 210 Right FA. 12:30 Initial lab(s) drawn, by me, sent to lab. Inserted saline lock: 22 gauge in left hand, jl7 using aseptic technique. Blood collected. 18:00 Urine collected: Garcia catheter specimen, cloudy. Garcia cath inserted, using sterile jl7 technique, 16 Fr., by me, balloon inflated, to gravity drainage, urine specimen collected. returned cloudy urine. Patient tolerated poorly. 18:30 Inserted saline lock: 20 gauge in left antecubital area, using aseptic technique. jl7 18:39 Perez Gupta MD is Hospitalizing Provider. kdr 19:00 Report given to CHRISSY Padilla. jl7 19:01 CT Chest For PE Angio In Process Unspecified. EDMS 19:39 COVID-19 SARS RT PCR (Document "Date of Onset" if Symptomatic) Sent. df1 20:08 No provider procedures requiring assistance completed. df1 21:27 Patient admitted, IV remains in place. df1 Administered Medications: 11:05 Drug: Zofran (Ondansetron) 4 mg Route: IVP; Site: right forearm; jl7 11:30 Follow up: Response: No adverse reaction; Nausea is decreased jl7 11:05 Drug: NS 0.9% 500 ml Route: IV; Rate: bolus; Site: right forearm; jl7 11:30 Follow up: Response: No adverse reaction; IV Status: Completed infusion; IV Intake: jl7 500ml 11:07 Drug: Pepcid (famotidine) 20 mg Route: IVP; Site: right forearm; jl7 13:33 Follow up: Response: No adverse reaction jl7 12:10 Drug: Motrin (ibuprofen) 600 mg Route: PO; jl7 14:01 Follow up: Response: No adverse reaction; Temperature is decreased jl7 13:24 Drug: NS 0.9% 500 ml Route: IV; Rate: bolus; Site: right forearm; jl7 14:00 Follow up: Response: No adverse reaction; IV Status: Completed infusion; IV Intake: jl7 500ml 18:30 Drug: NS 0.9% 1000 ml Route: IV; Rate: 1 bolus; Site: left antecubital; jl7 18:30 Drug: Ativan (LORazepam) 1 mg Route: IVP; Site: right antecubital; jl7 18:54 Follow up: Response: No adverse reaction jl7 Intake: 11:30 IV: 500ml; Total: 500ml. jl7 14:00 IV: 500ml; Total: 1000ml. jl7 Outcome: 18:39 Decision to Hospitalize by Provider. kdr 21:27 Admitted to Med/surg df1 21:27 Condition: stable 21:27 Instructed on the need for admit. 21:51 Patient left the ED. df1 Signatures: Dispatcher [employer] EDMS Wale Dozier MD MD kdr Martinez, Maria Jesusita Haynes RN RN jl7 Valerie Cameron df1
[2021-05-29 18:47] LABS: Urine Blood Trace-lysed (Negative); Urine Glucose 3+ (Negative); Urine Protein 1+ (Negative); Urine pH 6.5 (5.0-7.0)
--- NOTE | 2021-05-29 19:19 | RAD REPORT ---
EXAM DESCRIPTION: CT - Chest For Pe Angio - 05/29/2021 7:02 pm CLINICAL HISTORY: sob COMPARISON: May 29, 2021 TECHNIQUE: Dynamically enhanced axial 3 mm thick images of the chest were obtained during administra tion of <100> mL Isovue 370 IV contrast. Coronal and oblique reconstruction images were generated and reviewed. Exam utilizes a protocol for optimal evaluation of pulmonary arterial tree. Maximum intensity projections 3D imaging was utilized All CT scans are performed using dose optimization technique as appropriate and may include automated exposure control or mA/KV adjustment according to patient size. FINDINGS: A pulmonary embolus is not seen. A thoracic aortic aneurysm is not noted. A pleural effusion is not seen. A pericardial effusion is not seen. A lung consolidation is not present. IMPRESSION: Negative for a pulmonary embolism.
--- NOTE | 2021-05-29 22:05 | P.HP ---
Certification for Inpatient Patient admitted to: Inpatient With expected LOS: <2 Midnights Patient will require the following post-hospital care: None Practitioner: I am a practitioner with admitting privileges, knowledge of patient current condition, hospital course, and medical plan of care. Services: Services provided to patient in accordance with Admission requirements found in Title 42 Section 412.3 of the Code of Federal Regulations Patient History Date of Service: 05/29/21 Reason for admission: fall, dehydration History of Present Illness: Ms. Bran is a 75 year old female with type 2 diabetes mellitus, chronic atrial fibrillation, hypothyroidism, history of bilateral lower extremity lymphedema, chronic DVT on eliquis presented to the emergency department after a fall. Starting late last night she had persistent nausea and vomiting. This morning she slipped in vomit and hit her head on the nightstand, and now has a hematoma at the back of her head. She also injured her left knee. At bedside, she was sleeping peacefully, but upon awakening, groans and does not speak. She has a persistent cough, productive of green sputum. Reports malaise, fever. Denies abdominal pain. History obtained from caregiver. Admitted from the ED for tachycardia and fever WBC 12.4 Glu [address] Traumogram IMPRESSION: 1. No acute intracranial abnormality is seen. 2. A cervical fracture is not visualized. If the patient continues have symptoms to suggest intracranial/spinal cord pathology MRI be recommended 3. No traumatic abnormality involving the chest/abdomen/pelvis. Left Knee XRAY FINDINGS: No fracture or dislocation is seen. Osteoporosis. Soft tissue swelling CTPE IMPRESSION: Negative for a pulmonary embolism. Allergies ciprofloxacin Allergy (Verified 08/31/19 21:43) Hallucinations erythromycin base Allergy (Verified 08/31/19 21:43) Itching/Hives/Rash losartan Allergy (Verified 08/31/19 21:43) Hallucinations Macrolide Antibiotics Allergy (Verified 08/31/19 21:43) Itching/Hives/Rash metronidazole [From Flagyl] Allergy (Verified 08/31/19 21:43) Itching/Hives/Rash Penicillins Allergy (Verified 08/31/19 21:43) Itching/Hives/Rash pentoxifylline Allergy (Verified 08/31/19 21:43) Itching/Hives/Rash codeine Adverse Reaction (Intermediate, Verified 08/31/19 21:43) Hallucinations Home Medications: Dapagliflozin Propanediol [Farxiga] 10 mg PO DAILY 08/31/19 Diphenhydramine HCl [Banophen] 25 mg PO Q6HP PRN 08/31/19 Furosemide 40 mg PO DAILY 08/31/19 Hydrocortisone Cream [Hydrocortisone 1% Cream*] 1 lindsey TOP DAILY PRN 08/31/19 Insulin Aspart [Novolog Flexpen] 2 units SQ TIDWM 08/31/19 Lactobacillus Acidophilus [Acidophilus] 1 cap PO DAILY 08/31/19 Latanoprost Ophth [Xalatan 0.005%*] 1 gtt EACH EYE BEDTIME PRN 08/31/19 Levothyroxine Sodium 25 mcg PO DAILY 08/31/19 Pantoprazole [Protonix Tab*] 40 mg PO DAILY 08/31/19 Potassium Chloride [Klor-Con] 20 meq PO DAILY 08/31/19 Pramipexole Di-HCl [Pramipexole ER] 0.75 mg PO BEDTIME 08/31/19 Pregabalin 300 mg PO BID 08/31/19 traMADol HCL [Ultram*] 50 mg PO Q6HP PRN 08/31/19 Aspirin [Aspirin EC 81 MG] 1 tab PO DAILY 05/08/21 Ferrous Sulfate [Ferrous Sulfate*] 1 tab PO DAILY 05/08/21 Pravastatin [Pravachol*] 1 tab PO BEDTIME 05/08/21 Smz./Tmp. [Bactrim Ds 800 MG/160 MG*] 1 tab PO BID #14 tab 05/11/21 - Past Medical/Surgical History Diabetic: Yes -: Pneumonia -: DM -: HTN -: HLD -: Hypothyroidism -: Neuropathy -: Glaucoma -: Atrial Fibrillation -: hypotension -: EYE SX -: CERVICAL SPINE SX -: HYSTERECTOMY -: APPENDECTOMY -: left FOOT SX - Family History Mother -: Cancer Notes: stomach and intestinal cancer Father -: Heart disease - Social History Smoking Status: Unknown if ever smoked Alcohol use: No CD- Drugs: No Caffeine use: Yes Place of Residence: Home Review of Systems 10-point ROS is otherwise unremarkable General: Fever, Malaise Eyes: Unremarkable ENT: Unremarkable Respiratory: Cough Cardiovascular: Unremarkable Gastrointestinal: Nausea, Vomiting Genitourinary: Unremarkable Musculoskeletal: Unremarkable Integumentary: Bruising, As per HPI Neurological: Confusion, As per HPI Lymphatics: Unremarkable Physical Examination - Vital Signs Temperature: 99.2 F Blood Pressure: 138/71 Pulse: 99 Respirations: 19 - Physical Exam General: Confused HEENT: Atraumatic, PERRLA, Mucous membr. moist/pink, Sclerae nonicteric Neck: Supple, 2+ carotid pulse no bruit, No LAD, Without JVD or thyroid abnormality Respiratory: Diminished, Rhonchi/gurgles Cardiovascular: Regular rate/rhythm, Normal S1 S2, Edema Gastrointestinal: Normal bowel sounds, No tenderness Musculoskeletal: Swelling Integumentary: Tenderness/swelling Neurological: Normal tone, Sensation intact, Abnormal speech, Abnormal affect Lymphatics: No axilla or inguinal lymphadenopathy - Studies Laboratory Data (last 24 hrs) 05/29/21 11:07: Sodium 142, Potassium 3.9, BUN 15, Creatinine 1.01, Glucose 220 H 05/29/21 11:07: WBC 12.40 H, Hgb 10.6 L, Hct 33.3 L, Plt Count 201 Assessment and Plan - Problems (Diagnosis) (1) Nausea & vomiting Current Visit: Yes Status: Acute Qualifiers: Vomiting type: unspecified Vomiting Intractability: non-intractable Qualified Code(s): R11.2 - Nausea with vomiting, unspecified (2) Fall Current Visit: Yes Status: Acute Qualifiers: Encounter type: initial encounter Qualified Code(s): W19.XXXA - Unspecified fall, initial encounter (3) Dehydration Current Visit: No Status: Acute (4) Diabetes Current Visit: No Status: Chronic Qualifiers: Diabetes mellitus type: type 2 Diabetes mellitus halfway insulin use: unspecified termite helper insulin use status Diabetes mellitus complication status: without complication Qualified Code(s): E11.9 - Type 2 diabetes mellitus without complications (5) Hypertension Onset Date: 04/12/17 Current Visit: No Status: Chronic Qualifiers: Hypertension type: primary hypertension Qualified Code(s): I10 - Essential (primary) hypertension (6) Lymphedema Current Visit: No Status: Chronic (7) Morbid obesity with BMI of 40.0-44.9, adult Current Visit: No Status: Chronic - Plan continue gentle IVF hydration, antipyretics and antiemetics PRN continue antibiotics, blood cultures pending LFTs pending breathing treatments and antitussives PRN pain management as needed sliding scale insulin and accuchecks reconcile and continue home medications DVT ppx, hold eliquis overnight Discharge Plan: Home Plan to discharge in: 48 Hours - Advance Directives Does patient have a Living Will: No Does patient have a Durable POA for Healthcare: No - Code Status/Comfort Care Code Status Assessed: Yes (full code ) Critical Care: No Time Spent Managing Pts Care (In Minutes): 70
[2021-05-29] MEDS ORDERED: ONDANSETRON 4 MG/2 ML VIAL IV PRN (23:27)
[2021-05-29] MEDS ORDERED: LEVALBUTEROL 1.25 MG/3 ML NEB NEB PRN (23:27)
[2021-05-29] MEDS: INSULIN -REGULAR HUMAN 50 UNIT/0.5 ML ML SQ SCH (23:27)
[2021-05-29] MEDS ORDERED: IPRATROPIUM BROM 0.5MG/2.5ML NEB PRN (23:27)
[2021-05-29] MEDS ORDERED: SMZ./TMP. 800/160 MG TABLET PO SCH (23:27)
[2021-05-29] MEDS ORDERED: TRAMADOL HCL 50 MG TAB PO PRN (23:27)
[2021-05-29 23:28] VITALS: BMI 39.1
[2021-05-29] MEDS: FUROSEMIDE 20 MG/ 2ML VIAL IV SCH (23:59)
[2021-05-30] MEDS: ACETAMINOPHEN 500 MG TAB PO PRN ×2 (00:50→09:17)
[2021-05-30] MEDS: BENZONATATE 100 MG CAP PO PRN ×3 (00:50→21:11)
[2021-05-30 01:23] LABS: Albumin 2.4 g/dL (3.4-5.0); Bilirubin Direct 0.2 mg/dL (0-0.2); Bilirubin Total 0.5 mg/dL (0.2-1.0); Protein, Total 6.5 g/dL (6.4-8.2)
[2021-05-30] MEDS ORDERED: ACETAMINOPHEN 500 MG TAB PO ONE (01:31)
[2021-05-30] MEDS ORDERED: AZTREONAM 1 GM/VIAL IV SCH (02:00)
[2021-05-30] MEDS ORDERED: AZTREONAM 1 GM/VIAL ONE (02:45)
[2021-05-30] MEDS ORDERED: NA CHLORIDE 0.9% 50 ML ONE (02:45)
[2021-05-30] MEDS: AZTREONAM 1 GM in NA CHLORIDE 0.9% 50 ML IV SCH ×2 (02:58→14:17)
[2021-05-30 05:35] LABS: Urine Appearance Clear (Clear); Urine Bilirubin Negative (Negative); Urine Blood 2+ (Negative); Urine Color Yellow (Yellow); Urine Glucose 2+ (Negative); Urine Protein 1+ (Negative); Urine Urobilinogen 0.2 mg/dL (0.2-1.0); Urine pH 5.5 (5.0-7.0)
[2021-05-30 05:38] LABS: Urine Microscopic Reflex ORDER UMIC
[2021-05-30 05:46] LABS: Urine Bacteria 20-50 /HPF (<20); Urine Mucus 1+ /HPF (NONE SEEN); Urine Yeast MANY (NONE SEEN)
--- NOTE | 2021-05-30 06:21 | P.PN ---
Date of Service: 05/30/21 Subjective: Patient continues with pain on the right side of head, and legs, also states pain all over More alert, answers questions appropriately, but sleepy at times Reports no real significant change in her chronic cough, denies any urinary changes recently Still with occasional fever ROS: 10 point ROS as noted above, otherwise negative Physical exam GEN: Awake, alert, oriented x3, intermittent moaning/groaning HEENT: Normal conjunctiva, sclera anicteric CV: Regular rate and rhythm, no edema Pulm: Nonlabored respiration on room air ABD: Soft, nontender, nondistended Integumentary: erythema of RLE (foot/ankle) MSK: Tenderness to palpation posterior to right ear Neuro: Normal speech, sleepy, moves all extremities Problem List Nausea/vomiting Fall/possible syncope fever, unknown origin, possible cellulitis, UTI COLT secondary to prerenal DM2 Chronic atrial fibrillation History of DVT Hypothyroid Hypertension Morbid obesity continue gentle IVF, antipyretics, and antiemetics as needed Azactam started in ED, continue. Add vancomycin for gram-positive coverage Right foot with erythema, questionable warmth. Concern for possible cellulitis family states that it occasionally gets red and resolves on its own Add Diflucan, yeast noted in urine. However patient reports she has been asymptomatic, has not completely alert and may not necessarily be very reliable at this time Follow-up cultures, de-escalate antibiotics as appropriate, consider ID consultation Patient was recently here in the last month for cellulitis breathing treatments and antitussives PRN pain management as needed sliding scale insulin and accuchecks reconcile and continue home medications DVT prophylaxis, Eliquis held secondary to hematoma CT head negative, patient appears to be improving mentally, more alert. If altered mentation worsens/persists, will consider MRI to rule out CVA, but patients with no focal neurologic findings on exam Time Spent Managing Pts Care (In Minutes): 35
[2021-05-30 06:32] LABS: Absolute Lymphocytes (CBC) 0.7 K/uL (0.7-4.9); Basophils % 0.4 % (0-1.3); Hematocrit 30.8 % (36.0-45.0); Lymphocytes % 6.7 % (15.3-44.8); MPV 8.6 fL (7.6-11.3); RBC Red Blood Cell Count 3.85 M/uL (3.86-4.86)
[2021-05-30 06:57] LABS: Albumin 2.3 g/dL (3.4-5.0); Bilirubin Total 0.5 mg/dL (0.2-1.0); Phosphorus 3.4 mg/dL (2.5-4.9); Potassium 3.3 mmol/L (3.5-5.1); Protein, Total 6.1 g/dL (6.4-8.2); Thyroid Stimulating Hormone 1.1 uIU/mL (0.360-3.740)
[2021-05-30] MEDS: INSULIN -REGULAR HUMAN 50 UNIT/0.5 ML ML SQ SCH ×4 (07:30→21:00)
[2021-05-30] MEDS: VANCOMYCIN 2 GM in NA CHLORIDE 0.9% 500 ML IVPB SCH (09:16)
[2021-05-30] MEDS: FLUCONAZOLE 100 MG TAB PO SCH (09:17)
[2021-05-30] MEDS: FUROSEMIDE 20 MG/ 2ML VIAL IV SCH ×2 (09:18→16:48)
[2021-05-30] MEDS: MORPHINE 2 MG/ML SYR IV PRN ×2 (15:10→21:10)
[2021-05-30] MEDS: NA CHLORIDE 0.9% 1,000 ML IV SCH ×2 (21:15)
[2021-05-31] MEDS: AZTREONAM 1 GM in NA CHLORIDE 0.9% 50 ML IV SCH ×2 (02:10→14:38)
[2021-05-31 04:34] LABS: Basophils % 0.6 % (0-1.3); Hematocrit 30.1 % (36.0-45.0); Lymphocytes % 11.7 % (15.3-44.8); RBC Red Blood Cell Count 3.82 M/uL (3.86-4.86)
[2021-05-31 04:57] LABS: Albumin 2.2 g/dL (3.4-5.0); Bilirubin Total 0.5 mg/dL (0.2-1.0); Magnesium 1.8 mg/dL (1.8-2.4); Potassium 3.2 mmol/L (3.5-5.1); Protein, Total 6.2 g/dL (6.4-8.2)
--- NOTE | 2021-05-31 06:31 | P.PN ---
Date of Service: 05/31/21 Subjective: continues with cough, with some nausea after coughing fits feeling the soreness from her fall, feeling slightly better feels slightly short of breath as well, placed on O2 overnight ROS: 10 point ROS as noted above, otherwise negative Physical exam GEN: Awake, alert, oriented x3 HEENT: Normal conjunctiva, sclera anicteric CV: Regular rate and rhythm, trace b/l edema Pulm: Nonlabored respiration on 2L NC ABD: Soft, nontender, nondistended Integumentary: erythema of RLE (foot/ankle) , no added warmth/pain MSK: Tenderness to palpation posterior to right ear Neuro: Normal speech, sleepy, moves all extremities Problem List Nausea/vomiting Fall/possible syncope fever, unknown origin, possible cellulitis, UTI COLT secondary to prerenal DM2 Chronic atrial fibrillation History of DVT Hypothyroid Hypertension Morbid obesity Discontinue IV fluids, patient more alert, taking p.o., better Azactam started in ED, continue. Add vancomycin for gram-positive coverage Right foot with erythema, questionable warmth. Concern for possible cellulitis family states that it occasionally gets a darker red Added Diflucan, yeast noted in urine. However patient reports she has been asymptomatic Follow-up cultures, de-escalate antibiotics as appropriate, ID consulted Patient was recently here in the last month for cellulitis breathing treatments and antitussives PRN pain management as needed sliding scale insulin and accuchecks DVT prophylaxis, Eliquis held secondary to hematoma CT head negative Mentation has improved, denies any new focal deficits Physical therapy consulted Dispo: Anticipate DC home in ~2 days Code: bottom steep tender Spent Managing Pts Care (In Minutes): 35
[2021-05-31] MEDS: INSULIN -REGULAR HUMAN 50 UNIT/0.5 ML ML SQ SCH ×4 (07:30→20:52)
[2021-05-31] MEDS ORDERED: MAGNESIUM SULFATE 1 gm IVPB 1 GM/100 ML BAG IV ONE (09:00)
[2021-05-31] MEDS ORDERED: POTASSIUM CL SA 10 MEQ TAB PO ONE (09:00)
[2021-05-31] MEDS: VANCOMYCIN 2 GM in NA CHLORIDE 0.9% 500 ML IVPB SCH (10:28)
[2021-05-31] MEDS: FLUCONAZOLE 100 MG TAB PO SCH (10:29)
[2021-05-31] MEDS: ACETAMINOPHEN 500 MG TAB PO PRN ×2 (11:20→20:54)
--- NOTE | 2021-05-31 13:47 | RAD REPORT ---
EXAM DESCRIPTION: RAD - Chest Single View - 05/31/2021 12:48 pm CLINICAL HISTORY: hypoxia, cough (chronic) Chest pain. COMPARISON: Chest Single View dated 05/08/2021; Chest Single View dated 08/31/2019; Chest Single View dated 06/17/2019; Chest Single View dated 06/16/2019 FINDINGS: Portable technique limits examination quality. Mild bilateral pulmonary opacities are present which may represent pulmonary edema or infection. The heart is mildly to moderately enlarged. Small left pleural effusion. IMPRESSION: Mild CHF suspected.
[2021-05-31] MEDS: METOPROLOL TAR 25 MG TAB PO SCH ×2 (14:38→17:10)
[2021-05-31] MEDS: FUROSEMIDE 40 MG TABLET PO SCH (17:10)
[2021-05-31] MEDS: MORPHINE 2 MG/ML SYR IV PRN (22:00)
[2021-06-01] MEDS: AZTREONAM 1 GM in NA CHLORIDE 0.9% 50 ML IV SCH ×2 (01:49→14:00)
[2021-06-01] MEDS: MORPHINE 2 MG/ML SYR IV PRN (03:42)
[2021-06-01 04:20] LABS: Hematocrit 32.3 % (36.0-45.0); MPV 8.3 fL (7.6-11.3); RBC Red Blood Cell Count 4.12 M/uL (3.86-4.86)
[2021-06-01 04:57] LABS: Albumin 2.3 g/dL (3.4-5.0); Bilirubin Total 0.6 mg/dL (0.2-1.0); Potassium 3.4 mmol/L (3.5-5.1); Protein, Total 6.7 g/dL (6.4-8.2)
[2021-06-01] MEDS ORDERED: POTASSIUM CL SA 10 MEQ TAB PO ONE (05:23)
[2021-06-01] MEDS: METOPROLOL TAR 25 MG TAB PO SCH ×2 (05:31→18:33)
--- NOTE | 2021-06-01 06:07 | P.PN ---
Date of Service: 06/01/21 Subjective: Feeling better today. Soreness improving breathing more comfortably Still with Garcia in place Able to get out of bed today to bedside commode slowly and with help ROS: 10 point ROS as noted above, otherwise negative Physical exam GEN: Awake, alert, oriented x3 HEENT: Normal conjunctiva, sclera anicteric CV: Regular rate and rhythm, trace b/l edema Pulm: Nonlabored respiration on room air ABD: Soft, nontender, nondistended Integumentary: erythema of RLE (foot/ankle), with slight added warmth MSK: Tenderness to palpation posterior to right ear Neuro: Normal speech, sleepy, moves all extremities Problem List Nausea/vomiting Fall/possible syncope fever, unknown origin, possible cellulitis, UTI COLT secondary to prerenal DM2 Chronic atrial fibrillation History of DVT Hypothyroid Hypertension Morbid obesity Azactam started in ED, continue. Adde vancomycin for gram-positive coverage Right foot with erythema, questionable warmth. Concern for possible cellulitis family states that it occasionally gets a darker red Added Diflucan, yeast noted in urine. However patient reports she has been asymptomatic -will discontinue, urine culture with mixed karen Follow-up cultures, de-escalate antibiotics as appropriate, ID consulted Patient was recently here in the last month for cellulitis breathing treatments and antitussives PRN pain management as needed sliding scale insulin and accuchecks DVT prophylaxis, Eliquis held secondary to hematoma, can likely restart in the next day or 2 CT head negative Mentation has improved, denies any new focal deficits Physical therapy consulted Dispo: Patient requiring assistance, SNF versus rehab Anticipate stable for discharge in the next 1-2 days 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
[2021-06-01] MEDS: INSULIN -REGULAR HUMAN 50 UNIT/0.5 ML ML SQ SCH ×4 (07:30→19:57)
[2021-06-01] MEDS: POTASS/SODIUM PHOSPHATE 1 PKT POWD.PACK PO SCH ×3 (08:18→12:30)
[2021-06-01] MEDS: FLUCONAZOLE 100 MG TAB PO SCH (08:19)
[2021-06-01] MEDS: ACETAMINOPHEN 500 MG TAB PO PRN ×2 (08:19→22:22)
[2021-06-01] MEDS: FUROSEMIDE 40 MG TABLET PO SCH (08:19)
[2021-06-01] MEDS: VANCOMYCIN 2 GM in NA CHLORIDE 0.9% 500 ML IVPB SCH ×2 (08:20→09:00)
[2021-06-01] MEDS: HYDRALAZINE HCL 20 MG/ML VIAL IV PRN (08:26)
--- NOTE | 2021-06-01 14:58 | P.CNS ---
Chief Complaint: fall, dehydration History of Present Illness: The patient is a 75-year-old female with a past medical history of diabetes mellitus type 2, hypertension, lymphedema, morbid obesity , chronic atrial fibrillation, and hypothyroidism who presented to the emergency department after sustaining a fall at home. Patient states that when she felt she injured her head and the left knee. Of note patient was recently hospitalized at this facility on 05/08 in treated for bilateral lower extremity cellulitis and was sent home on 7 days of oral Bactrim. Patient still has residual right lower extremity cellulitis, however per caregiver the patient has intermittent lower extremity redness. Patient currently denies nausea/vomiting/diarrhea. Blood cultures pending, urine culture shows bacteria WBC is however urine culture shows mixed akren. Allergies ciprofloxacin Allergy (Verified 08/31/19 21:43) Hallucinations erythromycin base Allergy (Verified 08/31/19 21:43) Itching/Hives/Rash losartan Allergy (Verified 08/31/19 21:43) Hallucinations Macrolide Antibiotics Allergy (Verified 08/31/19 21:43) Itching/Hives/Rash metronidazole [From Flagyl] Allergy (Verified 08/31/19 21:43) Itching/Hives/Rash Penicillins Allergy (Verified 08/31/19 21:43) Itching/Hives/Rash pentoxifylline Allergy (Verified 08/31/19 21:43) Itching/Hives/Rash codeine Adverse Reaction (Intermediate, Verified 08/31/19 21:43) Hallucinations Home Medications: Dapagliflozin Propanediol [Farxiga] 10 mg PO DAILY 08/31/19 Diphenhydramine HCl [Banophen] 25 mg PO Q6HP PRN 08/31/19 Furosemide 40 mg PO DAILY 08/31/19 Hydrocortisone Cream [Hydrocortisone 1% Cream*] 1 lindsey TOP DAILY PRN 08/31/19 Insulin Aspart [Novolog Flexpen] 2 units SQ TIDWM 08/31/19 Lactobacillus Acidophilus [Acidophilus] 1 cap PO DAILY 08/31/19 Latanoprost Ophth [Xalatan 0.005%*] 1 gtt EACH EYE BEDTIME PRN 08/31/19 Levothyroxine Sodium 25 mcg PO DAILY 08/31/19 Pantoprazole [Protonix Tab*] 40 mg PO DAILY 08/31/19 Potassium Chloride [Klor-Con] 20 meq PO DAILY 08/31/19 Pramipexole Di-HCl [Pramipexole ER] 0.75 mg PO BEDTIME 08/31/19 Pregabalin 300 mg PO BID 08/31/19 traMADol HCL [Ultram*] 50 mg PO Q6HP PRN 08/31/19 Aspirin [Aspirin EC 81 MG] 1 tab PO DAILY 05/08/21 Ferrous Sulfate [Ferrous Sulfate*] 1 tab PO DAILY 05/08/21 Pravastatin [Pravachol*] 1 tab PO BEDTIME 05/08/21 Smz./Tmp. [Bactrim Ds 800 MG/160 MG*] 1 tab PO BID #14 tab 05/11/21 - Past Medical/Surgical History Diabetic: Yes -: Pneumonia -: DM -: HTN -: HLD -: Hypothyroidism -: Neuropathy -: Glaucoma -: Atrial Fibrillation -: hypotension -: EYE SX -: CERVICAL SPINE SX -: HYSTERECTOMY -: APPENDECTOMY -: left FOOT SX - Family History Mother Medical History: Cancer Notes: stomach and intestinal cancer Father Medical History: Heart disease - Social History Smoking Status: Unknown if ever smoked Alcohol use: No CD- Drugs: No Caffeine use: Yes Place of Residence: Home Review of Systems 10-point ROS is otherwise unremarkable Physical Examination Temp Pulse Resp BP Pulse Ox 98.7 F 110 H 20 132/64 96 06/01/21 12:00 06/01/21 12:00 06/01/21 12:00 06/01/21 12:00 06/01/21 12:00 General: Alert, Cooperative HEENT: Atraumatic, Normocephalic Neck: Supple, 2+ carotid pulse no bruit Respiratory: Clear to auscultation bilaterally, Normal air movement Cardiovascular: No edema, Normal pulses, Regular rate/rhythm Gastrointestinal: Normal bowel sounds, Soft and benign Integumentary: Other (Right lower extremity swelling and erythema.) Neurological: Abnormal strength Conclusions/Impression: Assessment/plan Right lower extremity cellulitis Recommend Bactrim for 2 weeks. Recommend applying mupirocin ointment to honey- colored crusting on the right toes. Keep leg elevated. Protein caloric malnutrition Recommend supplemental Ensure protein drinks Diabetes COLT Morbid obesity Anemia -medical management per primary team -continue to monitor CBC and BMP Plan of care discussed with Dr. Wood Thank you for consultation
[2021-06-01] MEDS: SMZ./TMP. 800/160 MG TABLET PO SCH ×2 (15:44→20:15)
[2021-06-01] MEDS: MUPIROCIN 2% OINT 22GM TUBE TOP SCH (20:18)
[2021-06-02] MEDS ORDERED: TRAMADOL HCL 50 MG TAB PO PRN (00:15)
[2021-06-02] MEDS ORDERED: MORPHINE 2 MG/ML SYR IM ONE (00:19)
[2021-06-02] MEDS: METOPROLOL TAR 25 MG TAB PO SCH ×2 (05:27→18:00)
[2021-06-02 05:57] LABS: Hematocrit 32.8 % (36.0-45.0); RBC Red Blood Cell Count 4.23 M/uL (3.86-4.86)
[2021-06-02 06:10] LABS: Potassium 3.3 mmol/L (3.5-5.1)
[2021-06-02] MEDS: INSULIN -REGULAR HUMAN 50 UNIT/0.5 ML ML SQ SCH ×4 (07:30→21:00)
[2021-06-02] MEDS: MUPIROCIN 2% OINT 22GM TUBE TOP SCH ×2 (09:14→20:56)
[2021-06-02] MEDS: SMZ./TMP. 800/160 MG TABLET PO SCH ×2 (09:14→20:55)
[2021-06-02] MEDS: FUROSEMIDE 40 MG TABLET PO SCH (09:14)
[2021-06-02] MEDS: HYDRALAZINE HCL 20 MG/ML VIAL IV PRN (09:21)
--- NOTE | 2021-06-02 11:14 | P.PN ---
Subjective Date of Service: 06/02/21 Chief Complaint: fall, dehydration Patient seen examined at bedside, cellulitis improving. Pending transfer to [facility]. Physical Examination - Vital Signs Temperature: 97.8 F Blood Pressure: 162/72 Pulse: 71 Respirations: 18 Pulse Ox (%): 92
--- NOTE | 2021-06-02 15:44 | P.DS ---
Admission Date: 05/29/21 Discharge Date: 06/02/21 Disposition: TRANSFR TO OTHER-PSY/CD/REHAB Discharge Condition: FAIR Reason for Admission: fall, dehydration - Problems (1) Fall Current Visit: Yes Status: Acute Qualifiers: Encounter type: initial encounter Qualified Code(s): W19.XXXA - Unspecified fall, initial encounter (2) Nausea & vomiting Current Visit: Yes Status: Acute Qualifiers: Vomiting type: unspecified Vomiting Intractability: non-intractable Qualified Code(s): R11.2 - Nausea with vomiting, unspecified (3) Acute metabolic encephalopathy Current Visit: No Status: Acute (4) Cellulitis of leg, right Current Visit: No Status: Acute (5) Sepsis Current Visit: No Status: Acute Brief History of Present Illness: Ms. Bran is a 75 year old female with type 2 diabetes mellitus, chronic atrial fibrillation, hypothyroidism, history of bilateral lower extremity lymphedema, chronic DVT on eliquis presented to the emergency department after a fall. She also reported nausea and vomiting. She reported she slipped in her vomit and hit her head on the nightstand, and developed a hematoma at the back of her head. She also injured her left knee. At bedside, she was sleeping peacefully, but upon awakening, groans and does not speak. She had persistent cough, productive of green sputum. Patient also tachycardic and febrile and meets criteria for sepsis. WBC 12.4 Glu [address] Traumogram IMPRESSION: 1. No acute intracranial abnormality is seen. 2. A cervical fracture is not visualized. If the patient continues have symptoms to suggest intracranial/spinal cord pathology MRI be recommended 3. No traumatic abnormality involving the chest/abdomen/pelvis. Left Knee XRAY FINDINGS: No fracture or dislocation is seen. Osteoporosis. Soft tissue swelling CTPE IMPRESSION: Negative for a pulmonary embolism. Patient admitted for further management. Hospital Course: Patient admitted to the medical floor and treated with antibiotics which included Azactam and vancomycin. She had right foot with erythema which per family has been intermittent. There was concern for possible cellulitis. Her urine culture was positive for yeast. Patient also treated briefly with Diflucan. However patient was asymptomatic and Diflucan later discontinued. Her urine culture grew mixed karen ID consulted and antibiotics deescalated to oral Bactrim. Patient was recently here in the last month for cellulitis CT head negative Her mentation has improved, no focal deficits Patient seen by physical therapy and needed assistance with ambulation. Patient has been [facility]. Fever has resolved. Leukocytosis resolved. Patient has clinically improved and deemed stable for discharge. ID recommended to continue Bactrim as an outpatient. Vital Signs/Physical Exam: Temp Pulse Resp BP Pulse Ox 97.8 F 108 H 18 137/99 H 92 06/02/21 12:00 06/02/21 12:00 06/02/21 12:00 06/02/21 12:00 06/02/21 12:00 General: Alert, In no apparent distress, Oriented x3 HEENT: Mucous membr. moist/pink Neck: JVD not distended Respiratory: Clear to auscultation bilaterally, Normal air movement Cardiovascular: No edema, Regular rate/rhythm, Normal S1 S2 Gastrointestinal: Normal bowel sounds, Soft and benign, Non-distended, No tenderness Musculoskeletal: No swelling, Erythema (Mild erythema - right lower extremity), Other Neurological: Other (No focal motor deficit.) Laboratory Data at Discharge: WBC 6.40 K/uL (4.3-10.9) D 06/02/21 05:45 Hgb 10.8 g/dL (12.0-15.0) L 06/02/21 05:45 Hct 32.8 % (36.0-45.0) L 06/02/21 05:45 Plt Count 173 K/uL (152-406) 06/02/21 05:45 Sodium 142 mmol/L (136-145) 06/02/21 05:45 Potassium 3.3 mmol/L (3.5-5.1) L 06/02/21 05:45 BUN 11 mg/dL (7-18) 06/02/21 05:45 Creatinine 0.79 mg/dL (0.55-1.3) 06/02/21 05:45 Glucose 132 mg/dL (74-106) H 06/02/21 05:45 Phosphorus 3.0 mg/dL (2.5-4.9) 06/02/21 05:45 Magnesium 2.0 mg/dL (1.8-2.4) 06/01/21 04:00 Total Bilirubin 0.6 mg/dL (0.2-1.0) 06/01/21 04:00 AST 21 U/L (15-37) 06/01/21 04:00 ALT 18 U/L (12-78) 06/01/21 04:00 Alkaline Phosphatase 31 U/L (45-117) L 06/01/21 04:00 Home Medications: Dapagliflozin Propanediol [Farxiga] 10 mg PO DAILY 08/31/19 Diphenhydramine HCl [Banophen] 25 mg PO Q6HP PRN 08/31/19 Furosemide 40 mg PO DAILY 08/31/19 Hydrocortisone Cream [Hydrocortisone 1% Cream*] 1 lindsey TOP DAILY PRN 08/31/19 Insulin Aspart [Novolog Flexpen] 2 units SQ TIDWM 08/31/19 Lactobacillus Acidophilus [Acidophilus] 1 cap PO DAILY 08/31/19 Latanoprost Ophth [Xalatan 0.005%*] 1 gtt EACH EYE BEDTIME PRN 08/31/19 Levothyroxine Sodium 25 mcg PO DAILY 08/31/19 Pantoprazole [Protonix Tab*] 40 mg PO DAILY 08/31/19 Potassium Chloride [Klor-Con] 20 meq PO DAILY 08/31/19 Pramipexole Di-HCl [Pramipexole ER] 0.75 mg PO BEDTIME 08/31/19 Pregabalin 300 mg PO BID 08/31/19 traMADol HCL [Ultram*] 50 mg PO Q6HP PRN 08/31/19 Aspirin [Aspirin EC 81 MG] 1 tab PO DAILY 05/08/21 Ferrous Sulfate [Ferrous Sulfate*] 1 tab PO DAILY 05/08/21 Pravastatin [Pravachol*] 1 tab PO BEDTIME 05/08/21 Benzonatate [Tessalon Perle*] 100 mg PO TID PRN cap 06/02/21 Ipratropium Neb [Atrovent*] 0.5 mg NEB [id number] PRN amp 06/02/21 Levalbuterol [Xopenex*] 1.25 mg NEB [id number] PRN vial 06/02/21 Metoprolol Tartrate [Lopressor*] 25 mg PO BID 6AM 6PM tab 06/02/21 Mupirocin Oint [Bactroban 2% Ointment*] 1 appl TOP BID #0 tube 06/02/21 Smz./Tmp. [Bactrim Ds 800 MG/160 MG*] 1 tab PO BID #14 tab 06/02/21 New Medications: Smz./Tmp. [Bactrim Ds 800 MG/160 MG*] 1 tab PO BID #14 tab Diet: ADA Activity: Fall precautions Followup: TIM DUMONT [Primary Care Provider] - 1-2 Weeks Time spent managing pt's care (in minutes): 40
[2021-06-02] MEDS: MORPHINE 2 MG/ML SYR IV PRN (18:30)
[2021-06-02] MEDS: ACETAMINOPHEN 500 MG TAB PO PRN (19:02)
[2021-06-02] MEDS ORDERED: ALPRAZOLAM 0.25 MG TABLET PO ONE (20:26)
[2021-06-02 20:27] VITALS: O2SAT 97
[2021-06-02 21:12] VITALS: BP 166/74; TEMP 97.2
== END 2021-06-02 21:25 | DRG 871 ==
LOC: ER 09:28 → ERHOLD 20:14 → 2ND 20:45
PROVIDERS: ADMIT Hospitalist; ATTEND Internal Medicine
DX: A41.9 Sepsis, unspecified organism (principal); G93.41 Metabolic encephalopathy; I48.20 Chronic atrial fibrillation, unspecified; Z68.41 Body mass index [BMI] 40.0-44.9, adult; N17.9 Acute kidney failure, unspecified; N39.0 Urinary tract infection, site not specified; L03.115 Cellulitis of right lower limb; E46 Unspecified protein-calorie malnutrition; E11.40 Type 2 diabetes mellitus with diabetic neuropathy, unspecified; E03.9 Hypothyroidism, unspecified; E86.0 Dehydration; I89.0 Lymphedema, not elsewhere classified; D64.9 Anemia, unspecified; I10 Essential (primary) hypertension; E78.5 Hyperlipidemia, unspecified; E66.01 Morbid (severe) obesity due to excess calories; S00.83XA Contusion of other part of head, initial encounter; W01.198A Fall on same level from slipping, tripping and stumbling with subsequent striking against other object, initial encounter; Z88.1 Allergy status to other antibiotic agents; Z88.0 Allergy status to penicillin; Z88.8 Allergy status to other drugs, medicaments and biological substances; Z88.5 Allergy status to narcotic agent; Z79.82 Long term (current) use of aspirin; Z79.01 Long term (current) use of anticoagulants; Z79.890 Hormone replacement therapy; Z79.899 Other long term (current) drug therapy; Z79.4 Long term (current) use of insulin; Z86.718 Personal history of other venous thrombosis and embolism; Z20.822 Contact with and (suspected) exposure to COVID-19
CPT/HCPCS: 36415; 51702; 70450; 71045; 71250; 71275; 72125; 80048; 80053; 80076; 81003; 81015; 82947; 83605; 83735; 84100; 84132; 84145; 84439; 84443; 85025; 85027; 86140; 87040; 87086; 87088; 94760; 97110; 97162; 97530; 99285; J0360; J1940; J2270; J2405; J3370; J3475; J7030; J7040; Q9967; U0003

== ENCOUNTER 2022-02-03 16:20 | Emergency (ER) | payer OTHER ==
--- OUTSIDE RECORDS SUMMARY | 2022-02-03 16:25 | XMS REPORT | Continuity of Care Document ---
:1945 Author Organization [facility] t Address [address] [place] [address] Care Team Providers Name Role Phone She Pacheco MD Primary Care Physician [id number] Attending Clinician Unavailable [employer] SALESPERSON PENDING, [employer] SALESPERSON PENDING Attending Clinician U Timothy Chavez Attending Clinician Unavailable She Pacheco MD Attending Clinician Ana Dela Cruz Attending Clinician JOSH Attending Clinician Unavailable Armand Drake Attending Clinician [phone] Manish Mckeon Rahil Attending Clinician Unavailable [id number] Admitting Clinician Unavailable Physician, No Primary or Family Admitting Clinician Unavaila ble JOSH Admitting Clinician Unavailable Manish Mckeon Rahil Admitting Clinician Unavailable Payers Payer Name Policy Type Policy Number Effective Date Expiration Date S our MEDICARE PART A [id number] 2011 AND B 00:00:00 [facility] [id number] [facility] [id number] MEDICARE [place]: [id number] 2011 [employer] 00:00:00 ROSALIA [id number] 2011 00:00:00 Problems Condition Condition Condition Status Onset Resolution Last Treating Co mments Source Name Details Category Date Date Treatment Clinician Date Acute Acute Disease Active Univers renal renal 7-29 ity of insufficie insufficie [place] ncy ncy 00 Medical Branch Chronic Chronic Disease Active Univers constipati constipati 7-29 it y of on on 00:00: [place] [facility] Diarrhea Diarrhea Disease Active Unive rs 7-29 ity of 00:00: [place] [facility] Hypovolemi Hypovolemi Disease Active U nivers c shock c shock 7-29 ity of 00:00: [place] 00 Medical Branch Edema of Edema of Disease Active Unive rs right right 2-14 ity of lower leg [place] Cellulitis Cellulitis Disease Active U nivers of right of right 1-11 ity of lower leg [place] leg 00:[place] [facility] [place] Acute Acute Disease Active 2020-07 [facility] anemia anemia 1-15 ity of 00:00: [place] 00 Medical Branch Cardiac Cardiac Disease Active 2020-07 Univers arrhythmia arrhythmia 0-11 it y of 00:00: [place] 00 Medical Branch VTE VTE Disease Active Univers (venous (venous [...] serious comorbidit comorbidit y present y present Chronic Chronic Disease Active Univers upper back upper back 4-29 it y of pain pain 00:00: [place] 00 Medical Branch Carpal Carpal Disease Active Univers tunnel tunnel 4-08 ity of syndrome syndrome 00:00: [place] [facility] Hypokalemi Hypokalemi Disease Active U nivers a due to a due to 4-08 ity of loss of loss of 00:00: [place] potassium potassium 00 [facility] Difficulty Difficulty Disease Active 2019-07 U nivers walking walking 0-20 ity of 00:00: [place] [facility] History of History of Disease Active 2019-07 U nivers fall fall 0-20 ity of 00:00: [place] [facility] History of History of Disease Active 2019-07 U nivers fracture fracture 0-20 ity of 00:00: [place] [facility] 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 00[place]00: [place] associated associated 00 Me dical with type 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 Cellulitis Cellulitis Disease Active U nivers and and 9-15 ity of abscess of abscess of 00:00: [place] right right 00 Medical lower lower Branch extremity extremity Memory Memory Disease Active Univers impairment impairment 9-10 it y of 00:00: [place] [facility] History of History of Disease Active U nivers transient transient 8-06 ity of ischemic ischemic 00:00: [place] attack attack 00 Medical Branch Cellulitis Cellulitis Disease Active 2020- U nivers of of 1-08 ity of unspecifie unspecifie 00:00[place] d [place] of d part of 00 [facility] limb limb Branch Allergic Allergic Disease Active 2018-07 Unive rs rhinitis, rhinitis, 2-27 ity of unspecifie unspecifie 00:00: [place] d d 00 Medical [facility] Chronic Chronic Disease Active 2018-07 Univers atrial atrial 2-27 ity of fibrillati fibrillati 00:00: [place] on, on, 00 Medical unspecifie unspecifie Br anch d d Gastroesop Gastroesop Disease Active 2019-1 U nivers hageal hageal 2-27 ity of reflux reflux 00:00: [place] disease disease 00 Medical without without Branch esophagiti esophagiti s s Iron Iron Disease Active 2018-07 Univers deficiency deficiency 2-27 it y of anemia anemia 00:00: [place] [facility] Localized Localized Disease Active 2018-07 Uni vers edema edema 2-27 ity of 00:00: [place] [facility] Age-relate Age-relate Disease Active 2018-07 U nivers d physical d physical 2-26 it y of debility debility 00:00: [place] [facility] Lymphedema Lymphedema Disease Active 2018-07 U nivers , not , not 2-11 ity of elsewhere elsewhere 00:[place] classified classified 00 Me dical Branch Bacteremia Bacteremia Disease Active 2018-07 U nivers 2-10 ity of 00:00: [place] [facility] Chronic Chronic Disease Active 2018-07 Univers venous venous 2-10 ity of hypertensi hypertensi 00:00: [place] on 00 Medical (idiopathi (idiopathi Br anch c) with c) with inflammati inflammati on of on of bilateral bilateral lower lower extremity extremity Fluid Fluid Disease Active 2018-07 Univers overload, overload, 2-10 ity of unspecifie unspecifie 00:00: [place] d d 00 Medical Branch 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) (current) 2-07 ity of use of use of 00:00: [place] insulin insulin 00 Medical Branch Cellulitis Cellulitis Disease Active 2018-07 U nivers of right of right 0-09 ity of leg leg 00:00: [place] [facility] Excessive Excessive Disease Active Uni vers daytime daytime 1-02 ity of sleepiness sleepiness 00:00: [place] [facility] Displaced Displaced Disease Active 2016-07 Uni vers bimalleola bimalleola 0-10 it y of r fracture r fracture 00:00: [place] [facility] Fracture Fracture Disease Active 2016-07 Unive rs of of 0-10 ity of calcaneus calcaneus 00:00[place] 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 00:00: [place] mellitus mellitus 00 Medica l without without Branch complicati complicati on, with on, with long-term long-term current current use of use of insulin insulin Essential Essential Disease Active 2014-07 Uni vers hypertensi hypertensi 2-24 it y of on on 00:00: [place] [facility] Hyperlipid Hyperlipid Disease Active 2014-07 U nivers emia emia 2-24 ity of 00:00: [place] [facility] Hypothyroi Hypothyroi Disease Active 2014-07 U nivers dism dism 2-24 ity of (acquired) (acquired) 00:00: [place] [facility] Allergies, Adverse Reactions, Alerts Allergy Allergy Status Severity Reaction(s) Onset Inactive Treating Comm ents Source Name Type Date Date Clinician Codeine Drug Active Dizziness Univer s Allergy - ity of 00:00: [place] [facility] CODEINE DRUG Active Hallucinates Uni vers INGREDI 11-04 ity of 00:00: [place] [facility] Sulfa Propensi Active Nausea Per care Univer s (Sulfona ty to and/or 1 taker, at ity o f mide adverse Vomiting 00:00: rehab, [place] Antibiot reaction 00 tolerated Med ical ics) s fine with Branch bendryl SULFA Drug Active N/V Univers (SULFONA Class 1-06 ity of MIDE 00:00: [place] ANTIBIOT 00 Medical ICS) Branch Erythrom Propensi Active Unknown - 2019-0 Uni vers ycin ty to See comments 9-11 ity of adverse 00:00: [place] reaction 00 Medical s Branch Metformi Propensi Active Unknown - 2019-0 Uni vers n ty to See comments 9-11 ity of adverse 00:00: [place] reaction 00 Medical s Branch ERYTHROM DRUG Active Unknown-Cmnt 2020-0 Un mirta YCIN 9-11 ity of 00:00: [place] 00 Medical Branch METFORMI DRUG Active Unknown-Cmnt 2020-0 Un [...] Medical s Branch CIPROFLO DRUG Active Unknown-Cmnt 2017-07 Un mirta XACIN INGREDI 0-09 ity of 00:00: [place] 00 Medical Branch METRONID DRUG Active Unknown-Cmnt 2017-07 Un mirta AZOLE INGREDI 0-09 ity of [...] ity of 00:00: [place] 00 Medical Branch Penicill Propensi Active Rash 2014- Univer s in ty to 2-09 ity of adverse 00:00: [place] reaction 00 Medical s Branch Macrolid Propensi Active Rash 2014- Univer s e ty to 2-09 ity of Antibiot adverse 00:00: [place] ics reaction 00 Medical s Branch MACROLID Drug Active Rash 2014- Univers E Class 2-09 ity of ANTIBIOT 00:00: [place] ICS 00 Medical Branch PENICILL DRUG Active Rash 2014-07 Univers IN INGREDI 2-09 ity of 00:00: [place] 00 Medical [place] Social History Social Habit Start Date Stop Date Quantity Comments Source History of Cigarette Smoker Universi ty of tobacco use [facility] [place] Exposure to 2022-01-22 2022-02-01 Not sure [place] of SARS-CoV-2 00:00:00 12:57:00 [facility] (event) [place] Alcohol intake 2022-02-01 2022-02-01 0 /d University of 00:00:00 00:00:00 [facility] [place] Tobacco use and 2022-01-29 2022-01-29 Smokeless tobacco Un iversity of exposure 00:00:00 00:00:00 non-user [facility] [place] Tobacco Comment 2022-01-29 2022-01-29 exposed to 2nd Unive rsity of 00:00:00 00:00:00 hand smoke [facility] [place] Education 2019-04-11 2019-04-11 21 University of 00:00:00 00:00:00 [facility] [place] Sex [birth year] Universit y of 00:00:00 00:00:00 [facility] [place] Smoking Status Start Date Stop Date Source Never smoked tobacco [facility] Medications Ordered Filled Start Stop Current Ordering Indication Dosage Frequency Signature Comments Components Source Medication Medication Date Date Medication? Clinician (SIG) Name Name insulin Univers aspart 02-01 ity of U-100 14:03: 00:00 [place] (NOVOLOG 32 :00 Medical FLEXPEN Branch U-100 INSULIN) 100 unit/mL (3 mL) injection escitalopra No escitalopr Univers m oxalate 02-01 08 am 10 mg ity o f 10 mg 14:03: 00:00 tablet [place] tablet 32 :00 Medical Branch rivaroxaban 2021- No Take by Un mirta 20 mg 02-01 mouth. ity of tablet 14:03: 00:00 [place] 32 :00 Medical Branch ferrous 2021- No 325mg Take 325 Univ ers sulfate 325 02-01 mg by ity of mg (65 mg 14:03: 00:00 mouth in [place] iron) 32 :00 the Medical tablet morning Branch and 325 mg at noon and 325 mg in the evening. Take with meals. insulin No Univers aspart 02-01 ity of U-100 14:03: 00:00 [place] (NOVOLOG 32 :00 Medical FLEXPEN Branch U-100 INSULIN) 100 unit/mL (3 mL) injection escitalopra 2021- No escitalopr Univers m oxalate 02-01 08 am 10 mg ity o f 10 mg 14:03: 00:00 tablet [place] tablet 32 :00 Medical Branch rivaroxaban 2021- No Take by Un mirta 20 mg 02-01 mouth. ity of tablet 14:03: 00:00 [place] 32 :00 Medical Branch ferrous 2021- No 325mg Take 325 Univ ers sulfate 325 02-01 mg by ity of mg (65 mg 14:03: 00:00 mouth in [place] iron) 32 :00 the Medical tablet morning Branch and 325 mg at noon and 325 mg in the evening. Take with meals. dapaglifloz Farxiga 10 Univers in 02-01 mg tablet ity of (FARXIGA) 13:47: 00:00 1 PO qd [place] 10 mg 29 :00 Medical tablet Branch dapaglifloz 2021- No Farxiga 10 Univers in 02-01 mg tablet ity of (FARXIGA) 13:47: 00:00 1 PO qd [place] 10 mg 29 :00 Medical tablet Branch clindamycin 2021- clindamyci Univers 150 mg 02-01 n HCl 150 ity of capsule 13:43: 00:00 mg capsule [place] as 42 :00 Medical Branch clindamycin 2021- No clindamyci Univers 150 mg 02-01 n HCl 150 ity of capsule 13:43: 00:00 mg capsule [place] as 42 :00 [facility] insulin Yes 70U inject 70 Unive rs degludec - Units ity of (TRESIBA 13:13: [place] U-100 29 skin Medical INSULIN SC) daily. [place] Morning insulin Yes 70U inject 70 Unive rs degludec - Units ity of (TRESIBA 13:13: under the [place] U-100 29 skin Medical INSULIN SC) daily. [place] Morning insulin Yes 70U inject 70 Unive rs degludec - Units ity of (TRESIBA 13:13: under the [place] U-100 29 skin Medical INSULIN SC) daily. [place] Morning insulin Yes 70U inject 70 Unive rs degludec - Units ity of (TRESIBA 13:13: under the [place] U-100 29 skin Medical INSULIN SC) daily. [place] Morning escitalopra Yes [id number] 10mg Take 1 Univers m oxalate 02-01 tablet by ity o f 10 mg 00:00: mouth in [place] tablet 00 the Medical morning. Branch ferrous Yes [id number] 325mg Take 1 Un mirta sulfate 325 8- tablet by ity of mg (65 mg 00:00: mouth [place] iron) 00 every Medical tablet Tuesday, and Tuesday in the evening. insulin Yes [id number] Inject 10 U nivers aspart 8-01 U ity of U-100 00:00: [facility] (NOVOLOG 00 usly with Medica l FLEXPEN breakfast, Branch U-100 12 U with INSULIN) lunch/dinn 100 unit/mL er daily (3 mL) injection NIFEdipine Yes [id number] 60mg Take 1 U nivers XL 60 mg 24 8 tablet by ity of hr tablet 00:00: mouth in [facility] 00 the Medical morning. Branch pregabalin Yes [id number] 50mg Take 1 Univers 50 mg 02-01 [id number] capsule by ity of capsule 00:00: mouth at [place] 00 bedtime. Medical Branch rivaroxaban 0 Yes [id number] 20mg Take 1 Univ ers 20 mg 8 tablet by ity of tablet 00:00: mouth in [place] 00 the Medical morning. Branch Indication s: blood clot formation in vein escitalopra Yes [id number] 10mg Take 1 Univers m oxalate 8- tablet by ity o f 10 mg 00:00: mouth in [place] tablet 00 the Medical morning. Branch ferrous Yes [id number] 325mg Take 1 Un mirta sulfate 325 8- tablet by ity of mg (65 mg 00:00: mouth [place] iron) 00 every Medical tablet Tuesday, Branch and Tuesday in the evening. insulin Yes [id number] Inject 10 U nivers aspart 8-01 U ity of U-100 00:00: [facility] (NOVOLOG 00 usly with Medica l FLEXPEN breakfast, Branch U-100 12 U with INSULIN) lunch/dinn 100 unit/mL er daily (3 mL) injection NIFEdipine 0 Yes [id number] 60mg Take 1 U nivers XL 60 mg 24 8-01 tablet by ity of hr tablet 00:00: [place] 00 the Medical morning. Branch pregabalin Yes [id number] 50mg Take 1 Univers 50 mg 8 [id number] capsule by ity of capsule 00:00: mouth at [place] 00 bedtime. Medical Branch rivaroxaban Yes [id number] 20mg Take 1 Univ ers 20 mg 8- tablet by ity of tablet 00:00: mouth in [place] 00 the Medical morning. Branch Indication s: blood clot formation in vein escitalopra Yes [id number] 10mg Take 1 Univers m oxalate 8- tablet by ity o f 10 mg 00:00: mouth in [place] tablet 00 the Medical morning. Branch ferrous Yes [id number] 325mg Take 1 Un mirta sulfate 325 - tablet by ity of mg (65 mg 00:00: mouth [place] iron) 00 every Medical tablet Tuesday, and Tuesday in the evening. NIFEdipine Yes [id number] 60mg Take 1 U nivers XL 60 mg 24 02-01 tablet by ity of hr tablet 00:00: mouth in [facility] 00 the morning. Branch pregabalin Yes [id number] 50mg Take 1 Univers 50 mg 02-01 [id number] capsule by ity of capsule 00:00: mouth at [place] 00 bedtime. Medical Branch rivaroxaban Yes [id number] 20mg Take 1 Univ ers 20 mg 8 tablet by ity of tablet 00:00: mouth in [place] 00 the morning. Branch Indication s: blood clot formation in vein insulin Yes [id number] INJECT 10 U nivers aspart 8 U ity of U-100 00:00: SUBCUTANEO [place] (NOVOLOG 00 USLY WITH Medica l FLEXPEN BREAKFAST, [place] U-100 12 U WITH INSULIN) LUNCH/DINN 100 unit/mL ER DAILY (3 mL) injection escitalopra Yes [id number] 10mg Take 1 Univers m oxalate 8- tablet by ity o f 10 mg 00:00: mouth in [place] tablet 00 the Medical morning. Branch ferrous Yes [id number] 325mg Take 1 Un mirta sulfate 325 8- tablet by ity of mg (65 mg 00:00: mouth [place] iron) 00 every Medical tablet Tuesday, and Tuesday in the evening. NIFEdipine Yes [id number] 60mg Take 1 U nivers XL 60 mg 24 02-01 tablet by ity of hr tablet 00:00: mouth in [facility] 00 the morning. Branch pregabalin Yes [id number] 50mg Take 1 Univers 50 mg 02-01 [id number] capsule by ity of capsule 00:00: mouth at [place] 00 bedtime. Medical Branch rivaroxaban Yes [id number] 20mg Take 1 Univ ers 20 mg 02-01 tablet by ity of tablet 00:00: mouth in [place] 00 the morning. Branch Indication s: blood clot formation in vein insulin 2021- No [id number] Inject 10 Univers aspart 02-01 U ity of U-100 00:00: 00:00 subcutaneo [place] (NOVOLOG 00 :00 usly with Medica l FLEXPEN breakfast, Branch U-100 12 U with INSULIN) lunch/dinn 100 unit/mL er daily (3 mL) injection aspirin Yes 81mg Take 81 mg Univ ers (ASPIRIN 7-29 by mouth ity of LOW DOSE) 10:12: daily. [place] 81 mg EC 46 Medical tablet Branch latanoprost Yes 1[drp] Place 1 U nivers (XALATAN) 7-29 Drop in ity of 0.005 % 10:12: both eyes [place] ophthalmic 46 every Medical drops evening. Branch aspirin Yes 81mg Take 81 mg Univ ers (ASPIRIN 7-29 by mouth ity of LOW DOSE) 10:12: daily. [place] 81 mg EC 46 Medical tablet Branch latanoprost Yes 1[drp] Place 1 U nivers (XALATAN) 7-29 Drop in ity of 0.005 % 10:12: both eyes [place] ophthalmic 46 every Medical drops evening. Branch aspirin Yes 81mg Take 81 mg Univ ers (ASPIRIN 7-29 by mouth ity of LOW DOSE) 10:12: daily. [place] 81 mg EC 46 Medical tablet Branch latanoprost Yes 1[drp] Place 1 U nivers (XALATAN) 7-29 Drop in ity of 0.005 % 10:12: both eyes [place] ophthalmic 46 every Medical drops evening. Branch aspirin Yes 81mg Take 81 mg Univ ers (ASPIRIN 7-29 by mouth ity of LOW DOSE) 10:12: daily. [place] 81 mg EC 46 Medical tablet Branch latanoprost Yes 1[drp] Place 1 U nivers (XALATAN) 7-29 Drop in ity of 0.005 % 10:12: both eyes [place] ophthalmic 46 every Medical drops evening. Branch mupirocin 2 Yes [id number] Apply to Univers % ointment 7-29 area(s) 3 ity of 00:00: (three) [place] 00 times Medical daily. Branch amitriptyli Yes [id number] 10mg Take 1 Univers ne 10 mg 7-29 tablet by ity of tablet 00:00: mouth at [place] [address] bedtime. Medical Branch mupirocin 2 Yes [id number] Apply to Univers % ointment 7-29 area(s) 3 ity of 00:00: (three) [place] 00 times Medical daily. Branch amitriptyli Yes [id number] 10mg Take 1 Univers ne 10 mg 7-29 tablet by ity of tablet 00:00: mouth at [place] [address] bedtime. Medical Branch mupirocin 2 Yes [id number] Apply to Univers % ointment 7-29 area(s) 3 ity of 00:00: (three) [place] 00 times Medical daily. Branch amitriptyli Yes [id number] 10mg Take 1 Univers ne 10 mg 7-29 tablet by ity of tablet 00:00: mouth at [place] 00 bedtime. Medical Branch mupirocin 2 Yes [id number] Apply to Univers % ointment 7-29 area(s) 3 ity of 00:00: (three) [place] 00 times Medical daily. Branch amitriptyli Yes [id number] 10mg Take 1 Univers ne 10 mg 7-29 tablet by ity of tablet 00:00: mouth at [place] [address] bedtime. Medical Branch insulin 2021- No [id number] 10U inject 10 Univers glargine - 08-01 Units ity of 100 unit/mL 00:00: 00:00 under the [place] injection 00 :00 skin at Medical bedtime. Branch inject under the skin at bedtime. insulin 2021- No [id number] 10U inject 10 Univers glargine 01-29 Units ity of 100 unit/mL 00:00: 00:00 under the [place] injection 00 :00 skin at Medical bedtime. Branch inject under the skin at bedtime. levoFLOXaci 2021- No TAKE 1 Uni vers n 750 mg 01-11 TABLET BY ity o f tablet 00:00: 00:00 MOUTH FOR [place] 00 :00 EVERY Medical 24HOURS Branch FOR 4 DAY NIFEdipine 2021- No 60mg Take 60 mg Univers XL 60 mg 24 01-11 by mouth ity of hr tablet 00:00: 00:00 in the [place] 00 :00 morning. Medical Branch levoFLOXaci 2021- No TAKE 1 Uni vers n 750 mg 01-11 TABLET BY ity o f tablet 00:00: 00:00 MOUTH FOR [place] 00 :00 EVERY Medical 24HOURS Branch FOR 4 DAY NIFEdipine 2021-2021- No 60mg Take 60 mg Univers XL 60 mg 24 01-11 by mouth ity of hr tablet 00:00: 00:00 in the [place] 00 :00 morning. Medical Branch semaglutide Yes Ozempic 1 U nivers (OZEMPIC) 1 4-24 mg/dose (2 it y of mg/dose (2 13:00: mg/1.5 mL) [place] mg/1.5 mL) 49 subcutaneo Med ical PnIj us pen Branch injector INJECT 1 MG EVERY WEEK BY SUBCUTANEO US ROUTE. semaglutide Yes Ozempic 1 U nivers (OZEMPIC) 1 4-24 mg/dose (2 it y of mg/dose (2 13:00: mg/1.5 mL) [place] mg/1.5 mL) 49 subcutaneo Med ical PnIj us pen Branch injector INJECT 1 MG EVERY WEEK BY SUBCUTANEO US ROUTE. semaglutide Yes Ozempic 1 U nivers (OZEMPIC) 1 4-24 mg/dose (2 it y of mg/dose (2 13:00: mg/1.5 mL) [place] mg/1.5 mL) 49 subcutaneo Med ical PnIj us pen Branch injector INJECT 1 MG EVERY WEEK BY SUBCUTANEO US ROUTE. semaglutide Yes Ozempic 1 U nivers (OZEMPIC) 1 4-24 mg/dose (2 it y of mg/dose (2 13:00: mg/1.5 mL) [place] mg/1.5 mL) 49 subcutaneo Med ical PnIj us pen Branch injector INJECT 1 MG EVERY WEEK BY SUBCUTANEO US ROUTE. levothyroxi Yes [id number] 25ug Take 1 Univers ne 25 mcg 4-24 [id number] tablet by ity of tablet 00:00: mouth [place] 00 every Medical morning. Branch pantoprazol Yes [id number] 40mg Take 1 Univers e 40 mg EC 4-24 [id number] tablet by it y of tablet 00:00: mouth [place] 00 daily. Medical Branch polyethylen Yes [id number] 17g Take 1 Univers e glycol 4-24 [id number] Packet by ity of 3350 17 00:00: mouth [place] gram powder 00 daily. Medica l Branch levothyroxi Yes [id number] 25ug Take 1 Univers ne 25 mcg 4-24 [id number] tablet by ity of tablet 00:00: mouth [place] 00 every Medical morning. Branch pantoprazol Yes [id number] 40mg Take 1 Univers e 40 mg EC 4-24 [id number] tablet by it y of tablet 00:00: mouth [place] 00 daily. Medical Branch polyethylen Yes [id number] 17g Take 1 Univers e glycol 4-24 [id number] Packet by ity of 3350 17 00:00: mouth [place] gram powder 00 daily. Medica l Branch levothyroxi Yes [id number] 25ug Take 1 Univers ne 25 mcg 4-24 [id number] tablet by ity of tablet 00:00: mouth [place] 00 every Medical morning. Branch pantoprazol Yes [id number] 40mg Take 1 Univers e 40 mg EC 4-24 [id number] tablet by it y of tablet 00:00: mouth [place] 00 daily. Medical Branch polyethylen Yes [id number] 17g Take 1 Univers e glycol 4-24 [id number] Packet by ity of 3350 17 00:00: mouth [place] gram powder 00 daily. Medica l Branch levothyroxi 0 Yes [id number] 25ug Take 1 Univers ne 25 mcg 4-24 [id number] tablet by ity of tablet 00:00: mouth [place] 00 every Medical morning. Branch pantoprazol Yes [id number] 40mg Take 1 Univers e 40 mg EC 4-24 [id number] tablet by it y of tablet 00:00: mouth [place] 00 daily. Medical Branch polyethylen Yes [id number] 17g Take 1 Univers e glycol 4-24 [id number] Packet by ity of 3350 17 00:00: mouth [place] gram powder 00 daily. Medica l Branch furosemide Yes [id number] 40mg Take 1 Univers 40 mg 4-23 [id number] tablet by ity of tablet 00:00: mouth [place] 00 every Medical morning Branch and evening. metoprolol Yes [id number] 25mg Take 1 Univers tartrate 25 4-23 [id number] tablet by i ty of mg tablet 00:00: mouth [place] 00 every Medical evening. Branch pramipexole Yes [id number] .5mg Take 1 Univers 0.5 mg 4-23 [id number] tablet by ity of tablet 00:00: mouth at [place] 00 bedtime. Medical Branch pravastatin Yes [id number] 80mg Take 1 Univers 80 mg 4-23 [id number] tablet by ity of tablet 00:00: mouth at [place] 00 bedtime. Medical Branch furosemide 0 Yes [id number] 40mg Take 1 Univers 40 mg 4-23 [id number] tablet by ity of tablet 00:00: mouth [place] 00 every Medical morning Branch and evening. metoprolol Yes [id number] 25mg Take 1 Univers tartrate 25 4-23 [id number] tablet by i ty of mg tablet 00:00: mouth [place] 00 every Medical evening. Branch pramipexole Yes [id number] .5mg Take 1 Univers 0.5 mg 4-23 [id number] tablet by ity of tablet 00:00: mouth at [place] 00 bedtime. Medical Branch pravastatin 0 Yes [id number] 80mg Take 1 Univers 80 mg 4-23 [id number] tablet by ity of tablet 00:00: mouth at [place] [address] bedtime. Medical Branch furosemide 2021-0 Yes [id number] 40mg Take 1 Univers 40 mg 4-23 [id number] tablet by ity of tablet 00:00: mouth [place] 00 every Medical morning Branch and evening. metoprolol 2021-0 Yes [id number] 25mg Take 1 Univers tartrate 25 4-23 [id number] tablet by i ty of mg tablet 00:00: mouth [place] 00 every Medical evening. Branch pramipexole 0 Yes [id number] .5mg Take 1 Univers 0.5 mg 4-23 [id number] tablet by ity of tablet 00:00: mouth at [place] [address] bedtime. Medical Branch pravastatin 2021-0 Yes [id number] 80mg Take 1 Univers 80 mg 4-23 [id number] tablet by ity of tablet 00:00: mouth at [place] [address] bedtime. Medical Branch furosemide 0 Yes [id number] 40mg Take 1 Univers 40 mg 4-23 [id number] tablet by ity of tablet 00:00: mouth [place] 00 every Medical morning Branch and evening. metoprolol 0 Yes [id number] 25mg Take 1 Univers tartrate 25 4-23 [id number] tablet by i ty of mg tablet 00:00: mouth [place] 00 every Medical evening. Branch pramipexole 0 Yes [id number] .5mg Take 1 Univers 0.5 mg 4-23 [id number] tablet by ity of tablet 00:00: mouth at [place] [address] bedtime. Medical Branch pravastatin 2021-0 Yes [id number] 80mg Take 1 Univers 80 mg 4-23 [id number] tablet by ity of tablet 00:00: mouth at [place] [address] bedtime. Medical Branch pregabalin 0 2021- No [id number] 50mg Take 1 Univers 50 mg 4-23 - [id number] capsule by ity o f capsule 00:00: 00:00 mouth at [place] 00 :00 bedtime. Medical Branch pregabalin 0 2021- No [id number] 50mg Take 1 Univers 50 mg 4-23 - [id number] capsule by ity o f capsule 00:00: 00:00 mouth at [place] 00 :00 bedtime. Medical Branch NYSTOP 2020-07 Yes Univers 100,000 2-09 ity of unit/gram 00:00: [place] powder 00 Medical Branch NYSTOP 2020-1 Yes Univers 100,000 2-09 ity of unit/gram 00:00: [place] powder 00 Medical Branch NYSTOP 2020-1 Yes Univers 100,000 2-09 ity of unit/gram 00:00: [place] powder 00 Medical Branch NYSTOP 2020-1 Yes Univers 100,000 2-09 ity of unit/gram 00:00: [place] powder 00 Medical Branch Insulin 2020-0 Yes [id number] Use as Uni vers Syringe-Nee 9-17 directed ity of dle U-100 00:00: [place] 0.3 mL 30 00 Medical gauge x Branch 1/2" Syrg Lancets 2020-0 Yes [id number] Use as Uni vers (ACCU-CHEK 9-17 directed ity o f MULTICLIX 00:00: [place] LANCET) 00 Medical Misc Branch Insulin 2020-0 Yes [id number] Use as Uni vers Syringe-Nee 9-17 directed ity of dle U-100 00:00: [place] 0.3 mL 30 00 Medical gauge x Branch 1/2" Syrg Lancets 2020-0 Yes [id number] Use as Uni vers (ACCU-CHEK 9-17 directed ity o f MULTICLIX 00:00: [place] LANCET) 00 Medical [facility] Branch Insulin 2020-0 Yes [id number] Use as Uni vers Syringe-Nee 9-17 directed ity of dle U-100 00:00: [place] 0.3 mL 30 00 Medical gauge x Branch 1/2" Syrg Lancets 2020-0 Yes [id number] Use as Uni vers (ACCU-CHEK 9-17 directed ity o f MULTICLIX 00:00: [place] LANCET) 00 Medical [facility] Branch Insulin 2020-0 Yes [id number] Use as Uni vers Syringe-Nee 9-17 directed ity of dle U-100 00:00: [place] 0.3 mL 30 00 Medical gauge x Branch 1/2" Syrg Lancets 2020-0 Yes [id number] Use as Uni vers (ACCU-CHEK 9-17 directed ity o f MULTICLIX 00:00: [place] LANCET) 00 Medical [facility] Branch Insulin 2019-1 Yes [id number] Use as Uni vers [place], 2-30 directed, ity of Disposable, 00:00[place] ([place] INSULIN 00 day, Medical PEN NEEDLE DX:E11.9 Branc h UF) 29 gauge x 1/2" Ndle Insulin 2018-07 Yes [id number] Use as Uni vers [place], 2-30 directed, ity of Disposable, 00:00[place] ([place] INS[place]IN , Medical PEN NEEDLE DX:E11.9 Branc h UF) 29 gauge x 1/2" Ndle Insulin 2018-07 Yes [id number] Use as Uni vers [place], 2-30 directed, ity of Disposable, 00:00[place] ([place] INS[place]IN , Medical PEN NEEDLE DX:E11.9 Branc h UF) 29 gauge x 1/2" Ndle Insulin 2018-07 Yes [id number] Use as Uni vers [place], 2-30 directed, ity of Disposable, 00:00: [place] ([place] INSULIN , Medical PEN NEEDLE DX:E11.9 Branc h UF) 29 gauge x 1/2" Ndle ACCU-CHEK 2019- Yes [id number] Take Uni vers PHILLIP strip 5-10 sugars 1-2 it y of 00:00: times a , DX Medical E11.9 Branch ACCU-CHEK 2019-0 Yes [id number] Take Uni vers PHILLIP strip 5-10 sugars 1-2 it y of 00:00: times a , DX Medical E11.9 Branch ACCU-CHEK 2019-0 Yes [id number] Take Uni vers PHILLIP strip 5-10 sugars 1-2 it y of 00:00: times a , DX Medical E11.9 Branch ACCU-CHEK 2019-0 Yes [id number] Take Uni vers PHILLIP strip 5-10 sugars 1-2 it y of 00:00: times a , DX Medical E11.9 Branch Immunizations Ordered Filled Immunization Date Status Comments [facility] e Immunization Name Name SARS-COV-2 COVID-19 2020-09-29 Completed Unive rsity of UNSPECIFIED VACCINE 00:00:00 [facility] [place] SARS-COV-2 COVID-19 2020-09-29 Completed Unive rsity of UNSPECIFIED VACCINE 00:00:00 [facility] [place] SARS-COV-2 COVID-19 2020-09-29 Completed Unive rsity of UNSPECIFIED VACCINE 00:00:00 [facility] [place] SARS-COV-2 COVID-19 2020-09-29 Completed Unive rsity of UNSPECIFIED VACCINE 00:00:00 [facility] [place] SARS-COV-2 COVID-19 2020-08-29 Completed Unive rsity of UNSPECIFIED VACCINE 00:00:00 [facility] [place] SARS-COV-2 COVID-19 2020-08-29 Completed Unive rsity of UNSPECIFIED VACCINE 00:00:00 [facility] [place] SARS-COV-2 COVID-19 2020-08-29 Completed Unive rsity of UNSPECIFIED VACCINE 00:00:00 [facility] [place] SARS-COV-2 COVID-19 2020-08-29 Completed Unive rsity of UNSPECIFIED VACCINE 00:00:00 [facility] [place] Influenza Virus 2020-03-27 Completed Universit y of Vaccine 00:00:00 [facility] [place] Influenza Virus 2020-03-27 Completed Universit y of Vaccine 00:00:00 [facility] [place] Influenza Virus 2020-03-27 Completed Universit y of Vaccine 00:00:00 [facility] [place] Influenza Virus 2020-03-27 Completed Universit y of Vaccine 00:00:00 [facility] [place] Influenza High Dose 2019-04-15 Completed Unive rsity of 00:00:00 [facility] [place] Influenza Virus 2019-04-15 Completed Universit y of Vaccine 00:00:00 [facility] [place] Influenza High Dose 2019-04-15 Completed Unive rsity of 00:00:00 [facility] [place] Influenza Virus 2019-04-15 Completed Universit y of Vaccine 00:00:00 [facility] [place] Influenza High Dose 2019-04-15 Completed Unive rsity of 00:00:00 [facility] [place] Influenza Virus 2019-04-15 Completed Universit y of Vaccine 00:00:00 [facility] [place] Influenza High Dose 2019-04-15 Completed Unive rsity of 00:00:00 [facility] [place] Influenza Virus 2019-04-15 Completed Universit y of Vaccine 00:00:00 [facility] [place] Influenza Virus 2019-04-14 Completed Universit y of Vaccine 00:00:00 [facility] [place] Influenza Virus 2019-04-14 Completed Universit y of Vaccine 00:00:00 [facility] [place] Influenza Virus 2019-04-14 Completed Universit y of Vaccine 00:00:00 [facility] [place] Influenza Virus 2019-04-14 Completed Universit y of Vaccine 00:00:00 [facility] [place] Influenza Virus 2019-04-03 Completed Universit y of Vaccine Quad IM 00:00:00 [place] Med ical Multi-dose 6+ MO Branch Pneumococcal 2019-04-03 Completed University o f Polysaccharide, 00:00:00 [place] Med ical PPSV23 (PNEUMOVAX) Branch Influenza Virus 2019-04-03 Completed Universit y of Vaccine Quad IM 00:00:00 [place] Med ical Multi-dose 6+ MO Branch Pneumococcal 2019-04-03 Completed University o f Polysaccharide, 00:00:00 [place] Med ical PPSV23 (PNEUMOVAX) Branch Influenza Virus 2019-04-03 Completed Universit y of Vaccine Quad IM 00:00:00 [place] Med ical Multi-dose 6+ MO Branch Pneumococcal 2019-04-03 Completed University o f Polysaccharide, 00:00:00 [place] Med ical PPSV23 (PNEUMOVAX) Branch Influenza Virus 2019-04-03 Completed Universit y of Vaccine Quad IM 00:00:00 [place] Med ical Multi-dose 6+ MO Branch Pneumococcal 2019-04-03 Completed University o f Polysaccharide, 00:00:00 [place] Med ical PPSV23 (PNEUMOVAX) Branch Influenza High Dose 2018-04-24 Completed Unive rsity of 00:00:00 [facility] [place] Influenza High Dose 2018-04-24 Completed Unive rsity of 00:00:00 [facility] [place] Influenza High Dose 2018-04-24 Completed Unive rsity of 00:00:00 [facility] [place] Influenza High Dose 2018-04-24 Completed Unive rsity of 00:00:00 [facility] [place] Pneumococcal 2017-10-03 Completed University o f Polysaccharide, 00:00:00 [place] Med ical PPSV23 (PNEUMOVAX) Branch Pneumococcal 2017-10-03 Completed University o f Polysaccharide, 00:00:00 [place] Med ical PPSV23 (PNEUMOVAX) Branch Pneumococcal 2017-10-03 Completed University o f Polysaccharide, 00:00:00 [place] Med ical PPSV23 (PNEUMOVAX) Branch Pneumococcal 2017-10-03 Completed University o f Polysaccharide, 00:00:00 [place] Med ical PPSV23 (PNEUMOVAX) Branch Influenza High Dose 2017-04-13 Completed Unive rsity of 00:00:00 [facility] [place] Influenza High Dose 2017-04-13 Completed Unive rsity of 00:00:00 [facility] [place] Influenza High Dose 2017-04-13 Completed Unive rsity of 00:00:00 [facility] [place] Influenza High Dose 2017-04-13 Completed Unive rsity of 00:00:00 [facility] [place] Pneumococcal 13 2016-07-12 Completed Universit y of Conjugate, PCV13 00:00:00 [place] Me dical (Prevnar 13) Branch Influenza High Dose 2016-07-12 Completed Unive rsity of 00:00:00 [facility] [place] Pneumococcal 2016-07-12 Completed University o f Polysaccharide, 00:00:00 [place] Med ical PPSV23 (PNEUMOVAX) Branch Pneumococcal 13 2016-07-12 Completed Universit y of Conjugate, PCV13 00:00:00 [place] Me dical (Prevnar 13) Branch Influenza High Dose 2016-07-12 Completed Unive rsity of 00:00:00 [facility] [place] Pneumococcal 2016-07-12 Completed University o f Polysaccharide, 00:00:00 [place] Med ical PPSV23 (PNEUMOVAX) Branch Pneumococcal 13 2016-07-12 Completed Universit y of Conjugate, PCV13 00:00:00 [place] Me dical (Prevnar 13) Branch Influenza High Dose 2016-07-12 Completed Unive rsity of 00:00:00 [facility] [place] Pneumococcal 2016-07-12 Completed University o f Polysaccharide, 00:00:00 [place] Med ical PPSV23 (PNEUMOVAX) Branch Pneumococcal 13 2016-07-12 Completed Universit y of Conjugate, PCV13 00:00:00 [place] Me dical (Prevnar 13) Branch Influenza High Dose 2016-07-12 Completed Unive rsity of 00:00:00 [facility] [place] Pneumococcal 2016-07-12 Completed University o f Polysaccharide, 00:00:00 [place] Med ical PPSV23 (PNEUMOVAX) Branch Pneumococcal 2016-07-11 Completed University o f Polysaccharide, 00:00:00 [place] Med ical PPSV23 (PNEUMOVAX) Branch Pneumococcal 2016-07-11 Completed University o f Polysaccharide, 00:00:00 [place] Med ical PPSV23 (PNEUMOVAX) Branch Pneumococcal 2016-07-11 Completed University o f Polysaccharide, 00:00:00 [place] Med ical PPSV23 (PNEUMOVAX) Branch Pneumococcal 2016-07-11 Completed University o f Polysaccharide, 00:00:00 [place] Med ical PPSV23 (PNEUMOVAX) Branch Pneumococcal 2011-06-19 Completed University o f Polysaccharide, 00:00:00 [place] Med ical PPSV23 (PNEUMOVAX) Branch Pneumococcal 2011-06-19 Completed University o f Polysaccharide, 00:00:00 [place] Med ical PPSV23 (PNEUMOVAX) Branch Pneumococcal 2011-06-19 Completed University o f Polysaccharide, 00:00:00 [place] Med ical PPSV23 (PNEUMOVAX) Branch Pneumococcal 2011-06-19 Completed University o f Polysaccharide, 00:00:00 [place] Med ical PPSV23 (PNEUMOVAX) Branch Pneumococcal 2011-05-05 Completed University o f Polysaccharide, 00:00:00 [place] Med ical PPSV23 (PNEUMOVAX) Branch TDAP 2011-05-05 Completed University of 00:00:00 [facility] [place] Pneumococcal 2011-05-05 Completed University o f Polysaccharide, 00:00:00 [place] Med ical PPSV23 (PNEUMOVAX) Branch TDAP 2011-05-05 Completed University of 00:00:00 [facility] [place] Pneumococcal 2011-05-05 Completed University o f Polysaccharide, 00:00:00 [place] Med ical PPSV23 (PNEUMOVAX) Branch TDAP 2011-05-05 Completed University of 00:00:00 [facility] [place] Pneumococcal 2011-05-05 Completed University o f Polysaccharide, 00:00:00 [place] Med ical PPSV23 (PNEUMOVAX) Branch TDAP 2011-05-05 Completed University of 00:00:00 [facility] [place] Vital Signs Vital Name Observation Time Observation Value Comments Source Systolic blood 2022-02-01 18:14:00 154 mm[Hg] Univer sity of pressure [facility] [place] Diastolic blood 2022-02-01 18:14:00 79 mm[Hg] Unive rsity of pressure [facility] [place] Heart rate 2022-02-01 18:13:00 91 /min [facility] Body temperature 2022-02-01 18:13:00 [facility].06 [facility] 2022-02-01 18:13:00 170.2 cm [facility] Body weight 2022-02-01 18:13:00 123.605 kg [facility] BMI 2022-02-01 18:13:00 42.68 kg/m2 [facility] Oxygen saturation in 2022-02-01 18:13:00 97 /min University of Arterial blood by [facility] Pulse oximetry Branch Procedures This patient has no known procedures. 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 ENCCLR ENCCLR [id number] ENCCLR 10:36:50 N PENDING, [employer] SALESPERSON PENDING 2021-06-03 Outpatient RodriguezTimothy HCAPM HCAPM [id number] [facility] 13:40:11 36 [facility] 2022-02-01 2022-02-01 [facility] [id number] Univers 13:00:00 14:09:10 Visit [facility] [id number] caron [facility] [id number] Paul as JOHN?BLEA [phone] [address] MEDICAL OFFICE BUILDING 2022-02-01 2022-02-01 [id number] Univers 13:00:00 14:09:10 [facility] 2022-02-01 2022-02-01 [facility] [id number] Univers 00:00:00 00:00:00 [facility] [id number] itallison [facility] [id number] Paul as JOHN?BLEA [phone] [address] MEDICAL OFFICE BUILDING 2022-02-01 2022-02-01 Telephone Asael [facility] [id number] Univers 00:00:00 00:00:00 Ana HEALTH [id number] it y sue [facility] [id number] Paul as JOHN?BLEA [id number] Oh emily [address] MEDICAL OFFICE BUILDING 2021-12-10 2021-12-10 Outpatient ERICKSON_R [facility] [id number] [place] 01:16:00 01:16:00 [facility] 2021-12-10 2021-12-10 Outpatient Vidal [facility] [id number] 00:00:00 00:00:00 Armand [id number] Bernabe [id number] 2021-10-26 2021-10-26 Outpatient ERICKSON_R [facility] [id number] - [place] 11:47:00 11:47:00 425 [facility] 2021-08-31 2021-08-31 Outpatient ERICKSON_R [facility] [id number] - [place] 12:23:00 12:23:00 228 [facility] 2021-08-31 2021-08-31 Outpatient Vidal [facility] [id number] 00:00:00 00:00:00 Armand [id number] Bernabe [id number] 2021-08-18 2021-08-29 Inpatient 3 Khalik, ENCPL OTH [id number] ENCPL 23:55:00 11:50:00 Manish [id number] 2021-07-30 2021-07-30 Outpatient ERICKSON_R [facility] [id number] - [place] 12:23:00 12:23:00 127 [facility] 2021-07-30 2021-07-30 Outpatient Vidal [facility] [id number] 00:00:00 00:00:00 Armand [id number] Bernabe [id number] 2021-06-25 2021-06-25 Outpatient ERICKSON_R [facility] [id number] - [place] 11:32:00 11:32:00 223 [facility] 2021-06-04 2021-06-04 Outpatient ERICKSON_R [facility] [id number] - [place] 03:56:00 03:56:00 202 [facility] 2021-06-03 2021-06-03 Outpatient Timothy Rodriguez [facility] RADI LA5 [id number] [facility] 12:11:00 12:11:00 [id number] [facility] 2021-05-26 2021-05-26 Outpatient ERICKSON_R [facility] [id number] [place] 11:22:00 11:22:00 123 [facility] 2021-05-18 2021-05-18 Outpatient ERICKSON_R [facility] [id number] - [place] 02:16:00 02:16:00 115 [facility] 2021-05-18 2021-05-18 Outpatient [place], [facility] [id number] 00:00:00 00:00:00 Armand [id number] Bernabe [id number] 2021-04-13 2021-04-13 Outpatient ERICKSON_R [facility] 92 - [place] 12:29:00 12:29:00 [id number] [facility] 2021-04-13 2021-04-13 Outpatient [place], [facility] [id number] 00:00:00 00:00:00 Armand [id number] Bernabe [id number] 2021-02-18 2021-02-18 Outpatient ERICKSON_R [facility] [id number] - [place] 01:53:00 01:53:00 [id number] [facility] 2021-02-17 2021-02-17 Outpatient ERICKSON_R [facility] [id number] - [place] 12:16:00 12:16:00 [id number] [facility] 2021-02-17 2021-02-17 Outpatient [place], [facility] [id number] 00:00:00 00:00:00 Armand [id number] Bernabe [id number] 2021-01-13 2021-01-13 Outpatient ERICKSON_R [facility] [id number] - [place] 12:56:00 12:56:00 713 [facility] 2021-01-13 2021-01-13 Outpatient Vidal [facility] [id number] 00:00:00 00:00:00 Armand [id number] Bernabe [id number] 2020-11-27 2020-11-27 Outpatient ERICKSON_R [facility] [id number] - [place] 02:06:00 02:06:00 527 [facility] 2020-11-27 2020-11-27 Outpatient Vidal [facility] [id number] 00:00:00 00:00:00 Armand [id number] Bernabe [id number] 2020-10-30 2020-10-30 Outpatient ERICKSON_R [facility] [id number] - [place] 11:59:00 11:59:00 429 [facility] 2020-10-30 2020-10-30 Outpatient Vidal [facility] [id number] 00:00:00 00:00:00 Aramnd [id number] Bernabe [id number] 2020-10-09 2020-10-09 Outpatient ERICKSON_R [facility] [id number] [place] 03:22:00 03:22:00 408 [facility] 2020-10-09 2020-10-09 Outpatient Vidal [facility] [id number] 00:00:00 00:00:00 Armand [id number] Bernabe [id number] 2020-09-09 2020-09-09 Outpatient ERICKSON_R [facility] [id number] [place] 12:52:00 12:52:00 309 [facility] 2020-09-09 2020-09-09 Outpatient Vidal [facility] [id number] 00:00:00 00:00:00 Armand [id number] Bernabe [id number] 2020-08-12 2020-08-12 Outpatient ERICKSON_R [facility] [id number] [place] 11:41:00 11:41:00 209 [facility] 2020-08-07 2020-08-07 Outpatient ERICKSON_R [facility] [id number] [place] 12:43:00 12:43:00 204 [facility] 2020-08-07 2020-08-07 Outpatient [place], [facility] [id number] 00:00:00 00:00:00 Armand [id number] Bernabe [id number] 2020-08-04 2020-08-04 Outpatient [facility]ICKSON_R [facility] [id number] [place] 10:49:00 10:49:00 201 [facility] 2020-07-14 2020-07-14 Outpatient ERICKSON_R [facility] [id number] [place] 02:25:00 02:25:00 111 [facility] 2020-07-10 2020-07-10 Outpatient [facility]ICKSON_R [facility] [id number] [place] 04:06:00 04:06:00 107 [facility] 2020-07-10 2020-07-10 Outpatient Vidal [facility] [id number] 00:00:00 00:00:00 Armand [id number] Bernabe [id number] 2020-07-01 2020-07-01 Outpatient ERICKSON_R [facility] [id number] - [place] 12:34:00 12:34:00 229 [facility] Results Test Description Test Time Test Comments Results Result [facility] e Comments - CT L-SPINE W/O 2021-06-03 CONTRAST 13:36:00 [facility] : 1945 Sex: F Name: IVETT FITZPATRICK [facility] : 1945 Age/S: 75 / F [id number] [address] [place] Unit #: [id number] Loc: [place] [address] Phys: Timothy Rodriguez MD Acct: [id number] Dis Date: Status: REG REF PHONE #: [phone] Exam Date: 06/03/2021 1301 FAX #: Reason: LBP EXAMS: CPT: [id number] CT L-SPINE W/O CONTRAST [id number] EXAM: - CT L-SPINE W/O CONTRAST HISTORY: LBP Location code:C3 TECHNIQUE: Axial tomograms through the lumbar spine were obtained without intravenous contrast. Sagittal and coronal reformatted images are provided. One or more of the following dose reduction techniques were used: Automated exposure control, adjustment of the mA and/or kV according to patient size, and/or utilization of iterative reconstruction technique. DLP: 776 mGy-cm. COMPARISON: None available time of interpretation. FINDINGS: Vertebral heights and alignment are maintained. No acute fracture or subluxation. The paravertebral soft tissues are unremarkable. Degenerative disc disease and facet arthropathy is present at multiple levels. Severe canal stenosis from L2 through L5 secondary to ligamentum flavum hypertrophy, facet arthrosis and small disc bulges are seen. Bilateral foraminal stenosis throughout the lumbar spine most pronounced on the left at L4-5 is present. Dense vascular calcifications are present. Calcified splenic granulomata are incidentally noted. IMPRESSION: 1. No acute osseous abnormality. 2. Areas of marked canal stenosis throughout the lumbar spine is present as detailed above. at 1336 Reported and signed by: Destin Delarosa MD CC: Timothy Rodriguez MD Technologist:Kevin Hernandez, RT(R)(CT) CTDI: DLP: Trnscb Date/Time: 06/03/2021 (7432) [email or web address] Orig Print D/T: S: 06/03/2021 (2635) PAGE 1 Signed Report
[2022-02-03] MEDS ORDERED: IBUPROFEN 200 MG TAB PO ONE (17:09)
[2022-02-03] MEDS ORDERED: IBUPROFEN 400 MG TAB ONE (17:10)
[2022-02-03] MEDS ORDERED: ONDANSETRON 4 MG/2 ML VIAL ONE ×2 (17:10→23:04)
[2022-02-03 17:45] LABS: Absolute Lymphocytes (CBC) 0.3 K/uL (0.7-4.9); Hematocrit 33.1 % (36.0-45.0); Lymphocytes % 2.3 % (15.3-44.8); MCV 76.9 fL (80-100); MPV 7.9 fL (7.6-11.3)
--- NOTE | 2022-02-03 17:46 | RAD REPORT ---
EXAM DESCRIPTION: RAD - Chest Single View - 02/03/2022 5:29 pm CLINICAL HISTORY: [place] COMPARISON: Portable 05/31/2021 TECHNIQUE: AP portable chest image was obtained 02/03/2022 5:29 pm . FINDINGS: No focal mass consolidation. Prominent interstitial pattern is not significantly different from comparison. Heart size is increased and central vasculature is mildly increased. Trachea is mid line. No measurable pleural effusion and no pneumothorax. No acute bony abnormality seen. No acute ao rtic findings suspected. IMPRESSION: No peripheral mass consolidation. Heart, vasculature and central lung markings may be slightly more pronounced than comparison. Correla tion is needed with any possible mild failure or volume overload.
[2022-02-03 17:48] LABS: Protime INR 1.44
[2022-02-03] MEDS ORDERED: PRAMIPEXOLE 0.25 MG TAB PO SCH (18:00)
[2022-02-03 18:01] LABS: Bilirubin Total 0.7 mg/dL (0.2-1.0); Potassium 3.1 mmol/L (3.5-5.1); Protein, Total 6.8 g/dL (6.4-8.2)
[2022-02-03] MEDS ORDERED: NA CHLORIDE 0.9% 500 ML ONE (20:28)
[2022-02-03 20:40] LABS: Urine Bacteria <20 /HPF (<20); Urine RBC <5 /HPF (None Seen)
[2022-02-03] MEDS ORDERED: MORPHINE 4 MG/ML SYR ONE (21:04)
--- NOTE | 2022-02-03 21:37 | RAD REPORT ---
EXAM DESCRIPTION: CT - Abdomen Pelvis W Contrast - 02/03/2022 9:26 pm CLINICAL HISTORY: fever, vomiting COMPARISON: No comparisons TECHNIQUE: Biphasic, helical CT imaging of the abdomen and pelvis was performed following 100 ml non -ionic IV contrast. No oral contrast was given. All CT scans are performed using dose optimization technique as appropriate and may include automated exposure control or mA/KV adjustment according to patient size. FINDINGS: No suspicious findings in the lung bases. The liver, spleen, and pancreas show no suspicious findings. Numerous granulomatous calcifications ar e present in the spleen. Multiple small gallstones are seen in the fundal portion of the gallbladder. No wall thickening or edema seen. No abnormal biliary tree dilatation. Symmetric renal function is seen with no hydronephrosis or suspicious renal mass. No pyelonephritis o r acute parenchymal process. No bladder abnormalities. No adrenal abnormalities. Pelvic floor laxity is evident. Uterus is absent. Ovaries are absent or atrophic. No dilated bowel loops or bowel wall thickening. The appendix is not clearly defined and may be surgi uzma absent. No appendicitis findings. No free air, free fluid or inflammatory stranding. No hernia , mass or bulky lymphadenopathy. Fluid retention is seen in the subcutaneous fatty tissues lateral to each hip joint. No suspicious bony findings. Bone and disc degenerative changes are present. IMPRESSION: Multi stone cholelithiasis without acute gallbladder or biliary tree finding seen. 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 No emergent finding seen.
[2022-02-03 21:59] LABS: Urine Blood 2+ (Negative); Urine Glucose Negative (Negative); Urine Protein 3+ (Negative)
--- NOTE | 2022-02-03 22:12 | ER ---
Nurse's Notes [facility] Name: Stephany Bran Age: 76 yrs Sex: Female : 1945 Arrival Date: 02/03/2022 Time: 16:22 Bed 14 Private MD: Diagnosis: Fever, unspecified;Nausea with vomiting, unspecified Presentation: 02/03 16:24 Chief complaint: EMS states: nausea, dizziness x 2 days, vomiting started today, 188 FS kr3 BS, temp 102.7. Coronavirus screen: Vaccine status: Patient reports receiving the 2nd dose of the covid vaccine. Client denies travel out of the [place] in the last 14 days. Ebola Screen: Patient denies travel to an Ebola-affected area in the 21 days before illness onset. Initial Sepsis Screen: Does the patient meet any 2 criteria? Temp <36.0*C (96.8*F)) or > 38.3*C (100.9*F). No. Patient's initial sepsis screen is negative. Does the patient have a suspected source of infection? Yes: Acute abdominal pain. Risk Assessment: Do you want to hurt yourself or someone else? Patient reports no desire to harm self or others. Onset of symptoms was February 01, 2022. 16:24 Method Of Arrival: EMS kr3 16:24 Acuity: NGA 3 kr3 Triage Assessment: 16:31 General: Appears distressed, uncomfortable, obese, Behavior is calm, cooperative, kr3 appropriate for age. Pain: Complains of pain in headache Pain does not radiate. 16:41 GI: Reports diarrhea. kr3 Historical: - Allergies: 16:38 PENICILLINS; kr3 16:38 Myacin family; kr3 16:38 Ciprofloxacin; kr3 16:38 Losartan; kr3 16:38 MACROLIDES; kr3 16:38 Metformin HCl; kr3 16:38 pentoxifylline; kr3 16:38 Demerol; kr3 16:38 Erythromycin; kr3 16:38 metronidazole; kr3 - Immunization history:: Adult Immunizations up to date, Client reports receiving the 2nd dose of the Covid vaccine. - Social history:: Smoking status: Patient denies any tobacco usage or history of. Screenin:53 Abuse screen: Denies threats or abuse. Denies injuries from another. Nutritional sm5 screening: No deficits noted. Tuberculosis screening: No symptoms or risk factors identified. Fall Risk Fall in past 12 months (25 points). No secondary diagnosis (0 pts). IV access (20 points). Ambulatory Aid- None/Bed Rest/Nurse Assist (0 pts). Gait- Weak (10 pts.). Mental Status- Oriented to own ability (0 pts). Total Serrano Fall Scale indicates High Risk Score (45 or more points). Fall prevention measures have been instituted. Side Rails Up X 2 Placed Close to Nursing Station Frequent Obs/Assessments Occuring As available patient and family educated on Fall Prevention Program and Strategies. Assessment: 17:30 GI: Abdomen is round non-distended. kr3 17:30 Reassessment: No changes from previously documented assessment. Patient and/or family kr3 updated on plan of care and expected duration. Pain level reassessed. Patient is alert, oriented x 3, equal unlabored respirations, skin warm/dry/pink. 20:00 General: Appears uncomfortable, Behavior is cooperative. Pain: Complains of pain in sm5 abdomen. Neuro: Level of Consciousness is awake, alert, obeys commands, Oriented to person, place, time, situation. Cardiovascular: Capillary refill < 3 seconds Patient's skin is warm and dry. Respiratory: Airway is patent Trachea midline Respiratory effort is even, unlabored. GI: Abdomen is obese. 21:30 Reassessment: No changes from previously documented assessment. Patient and/or family sm5 updated on plan of care and expected duration. Pain level reassessed. 23:00 Reassessment: Patient and/or family updated on plan of care and expected duration. Pain sm5 level reassessed. Patient is alert, oriented x 3, equal unlabored respirations, skin warm/dry/pink. 02/04 00:24 Reassessment: No changes from previously documented assessment. sm5 Vital Signs: 02/03 16:24 BP 177 / 72; Pulse 92; Resp 18; Temp 101.3(O); Pulse Ox 97% on R/A; kr3 16:44 BP 163 / 50; Pulse 86; Resp 18; Temp 101.3; Pulse Ox 94% on R/A; kr3 17:45 BP 192 / 83; Pulse 99; Resp 18; Pulse Ox 95% on R/A; kr3 19:03 BP 192 / 83; Pulse 99; Resp 18; Temp 100.5; Pulse Ox 95% on R/A; ll1 21:00 BP 110 / 90; Pulse 106; Resp 19; Pulse Ox 93% on R/A; sm5 0804 00:24 BP 155 / 87; Pulse 97; Resp 19; Pulse Ox 92% on R/A; sm5 ED Course: 02/03 16:22 Patient arrived in ED. kr3 16:30 Maintain EMS IV. Dressing intact. Site clean \T\ dry. Gauge \T\ site: 20 Gauge right wrist. kr 3 16:31 Triage completed. kr3 16:44 Arm band placed on Patient placed in an exam room, on a stretcher. kr3 16:45 Maryuri Almonte FNP-C is [facility]. kb 16:45 Job Hoang MD is Attending Physician. kb 17:30 Nettie Hoffman RN is Primary Nurse. kr3 17:31 Chest Single View XRAY In Process Unspecified. EDMS 18:01 Missed attempt(s): 20 gauge Bleeding controlled, band aid applied, catheter tip intact. kr3 20:31 Urine Microscopic Only Sent. sm5 21:28 CT Abd/Pelvis - IV Contrast Only In Process Unspecified. EDMS 22:01 Attending Physician role handed off by Job Hoang MD rn 22:01 Charles Gupta MD is Attending Physician. rn 08 00:26 Patient has correct armband on for positive identification. Bed in low position. Call sm5 light in reach. Side rails up X2. 00:26 No provider procedures requiring assistance completed. IV discontinued, intact, sm5 bleeding controlled, No redness/swelling at site. Pressure dressing applied. Administered Medications: 02/03 16:53 CANCELLED (Duplicate Order): Acetaminophen 1000 mg PO once kb 17:30 Drug: Zofran (Ondansetron) 4 mg Route: IVP; Site: right wrist; kr3 18:22 Follow up: Response: No adverse reaction kr3 17:30 Drug: Ibuprofen 600 mg Route: PO; kr3 18:22 Drug: Pramipexole 0.75 mg Route: PO; kr3 20:21 Drug: NS 0.9% 500 ml Route: IV; Rate: bolus; Site: right wrist; 5 21:00 Follow up: IV Status: Completed infusion; IV Intake: 500ml [facility] 20:58 Drug: morphine 4 mg Route: IVP; Infused Over: 4 mins; Site: right wrist; 5 02/04 00:27 Follow up: Response: No adverse reaction; RASS: Alert and Calm (0) 5 02/03 22:58 Drug: Zofran (Ondansetron) 4 mg Route: IVP; Site: right wrist; sm5 02/04 00:26 Follow up: Response: No adverse reaction [facility] Medication: 00:25 VIS not applicable for this client. sm5 Intake: 02/03 21:00 IV: 500ml; Total: 500ml. 5 Outcome: 22:11 Discharge ordered by . paul 02/04 00:26 Discharged to home wheelchair [place] [id number] Condition: stable Discharge instructions given to patient, Instructed on discharge instructions, follow up and referral plans. medication usage, Demonstrated understanding of instructions, follow-up care, medications, Prescriptions given X 2. 00:27 Patient left the ED. [facility] Signatures: Dispatcher [employer] EDMS Maryuri Almonte, LASHELL-C KNITTING INSPECTOR-Ckb Charles Gupta MD MD rn Lewis, Lynsay, RN RN ll1 Maddie Fitzpatrick RN RN sm5 Nettie Hoffman RN RN kr3 Corrections: (The following items were deleted from the chart) 02/03 16:43 16:38 Allergies: Codeine; kr3 kr3 16:43 16:38 PMHx: Diabetes - NIDDM; kr3 kr3 16:43 16:38 PMHx: Hypertension; kr3 kr3 16:43 16:38 PMHx: Hypothyroidism; kr3 kr3 16:43 16:38 PMHx: Hyperlipidemia; kr3 kr3 16:43 16:38 PMHx: Bronchitis; kr3 kr3 16:43 16:38 PMHx: Cellulitis; kr3 kr3 16:43 16:38 PMHx: kidney disease; kr3 kr3 16:43 16:38 PMHx: Glaucoma; kr3 kr3 16:43 16:38 PMHx: lymphedema; kr3 kr3 18:01 18:00 Reassessment: No changes from previously documented assessment. Patient and/or kr3 family updated on plan of care and expected duration. Pain level reassessed. Patient is alert, oriented x 3, equal unlabored respirations, skin warm/dry/pink. kr3 18:01 18:00 GI: Abdomen is round non-distended, kr3 kr3 18:08 16:45 Maintain EMS IV. Dressing intact. Site clean \T\ dry. Gauge \T\ site: 20 Gauge right kr 3 wrist. kr3
--- NOTE | 2022-02-03 22:12 | EDPHYS ---
Physician Documentation [facility] Name: Stephany Bran Age: 76 yrs Sex: Female : 1945 Arrival Date: 02/03/2022 Time: 16:22 Bed 14 Private MD: ED Physician Charles Gupta HPI: 02/04 00:23 This 76 yrs old Female presents to ER via EMS with complaints of Dizziness, kb Nausea/Vomiting. 00:19 Pt reports nausea and vomiting for 2 days, then dizziness began. Pt running fever when kb EMS arrived on scene. Pt denies abd pain. States she has had bodyaches and twitching in her legs due to restless leg syndrome. . 00:23 The patient presents to the emergency department with nausea, vomiting. Onset: The kb symptoms/episode began/occurred 2 day(s) ago. Possible causes: sick contacts. The symptoms are aggravated by nothing. The symptoms are alleviated by nothing. Associated signs and symptoms: Pertinent positives: nausea, vomiting, Pertinent negatives: abdominal pain, diarrhea, fever, GI bleeding. Severity of symptoms: At their worst the symptoms were moderate in the emergency department the symptoms are unchanged. The patient has not experienced similar symptoms in the past. The patient has not recently seen a physician. Historical: - Allergies: 02/03 16:38 PENICILLINS; kr3 16:38 Myacin family; kr3 16:38 Ciprofloxacin; kr3 16:38 Losartan; kr3 16:38 MACROLIDES; kr3 16:38 Metformin HCl; kr3 16:38 pentoxifylline; kr3 16:38 Demerol; kr3 16:38 Erythromycin; kr3 16:38 metronidazole; kr3 - Immunization history:: Adult Immunizations up to date, Client reports receiving the 2nd dose of the Covid vaccine. - Social history:: Smoking status: Patient denies any tobacco usage or history of. ROS: 02/04 00:13 Respiratory: Negative for shortness of breath, cough, wheezing, and pleuritic chest kb pain. Constitutional: Positive for body aches, fever, malaise. Abdomen/GI: Positive for nausea and vomiting. Neuro: Positive for dizziness. All other systems are negative. Exam: 02/03 17:55 ECG was reviewed by the Attending Physician. kb 02/04 00:17 Constitutional: This is a well developed, well nourished patient who is awake, alert, kb and in no acute distress. Head/Face: Normocephalic, atraumatic. ENT: Moist Mucous membranes Cardiovascular: Regular rate and rhythm with a normal S1 and S2. No gallops, murmurs, or rubs. No pulse deficits. Respiratory: Respirations even and unlabored. No increased work of breathing. Talking in full sentences Abdomen/GI: Soft, non-tender. No distention Skin: Warm, dry with normal turgor. Normal color. Neuro: Awake and alert, GCS 15, oriented to person, place, time, and situation. Moves all extremities. Normal gait. Psych: Awake, alert, with orientation to person, place and time. Behavior, mood, and affect are within normal limits. Musculoskeletal/extremity: Extremities: grossly normal except: noted in the right leg and left leg: erythema, swelling, pt reports this is normal for her, ROM: no acute changes, Circulation is intact in all extremities. Sensation intact. Vital Signs: 02/03 16:24 BP 177 / 72; Pulse 92; Resp 18; Temp 101.3(O); Pulse Ox 97% on R/A; kr3 16:44 BP 163 / 50; Pulse 86; Resp 18; Temp 101.3; Pulse Ox 94% on R/A; kr3 17:45 BP 192 / 83; Pulse 99; Resp 18; Pulse Ox 95% on R/A; kr3 19:03 BP 192 / 83; Pulse 99; Resp 18; Temp 100.5; Pulse Ox 95% on R/A; ll1 21:00 BP 110 / 90; Pulse 106; Resp 19; Pulse Ox 93% on R/A; sm5 02/04 00:24 BP 155 / 87; Pulse 97; Resp 19; Pulse Ox 92% on R/A; sm5 MDM: 02/03 16:45 Patient medically screened. kb 17:27 Data reviewed: vital signs, nurses notes. Data interpreted: Pulse oximetry: on room air kb is 94 %. Interpretation: normal. 22:01 ED course: No acute findings in workup other than elevated WBC with left shift. Patient rn evaluated by me, no focal findings. Pt guarantees me that legs don't look worse than normal, reports cough for 5 years without change. CXR/CT abdomen/UA neg. Pt wants to go home, does not want to be admitted. Will dc home per her wishes with prn zofran and bactrim. 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 . 22:10 Counseling: I had a detailed discussion with the patient and/or guardian regarding: the kb historical points, exam findings, and any diagnostic results supporting the discharge/admit diagnosis, lab results, radiology results, the need for outpatient follow up, a family practitioner, to return to the emergency department if symptoms worsen or persist or if there are any questions or concerns that arise at home. 02/04 19:54 ED course: I called pt to inform her of positive blood culture report and to come back for admission with IV antibiotics. PT states she does not want to come back for admission, she is taking the antibiotics I prescribed last night. States she was admitted at [place] for 7 days and has only been home for 2 weeks so she doesn't want to be admitted again. States she will come back if symptoms get worse, but she will not be coming today. 08 16:49 Order name: Blood Culture Adult (2); Complete Time: 19:42 kb 02/03 16:49 Order name: CBC with Diff; Complete Time: 17:50 kb 02/03 16:49 Order name: CMP; Complete Time: 18:08 kb 02/03 16:49 Order name: Lactate; Complete Time: 18:08 kb 02/03 16:49 Order name: Protime (+inr); Complete Time: 17:50 kb 02/03 16:49 Order name: Ptt, Activated; Complete Time: 17:50 kb 02/03 16:49 Order name: Urine Microscopic Only; Complete Time: 20:41 kb 02/03 16:49 Order name: Chest Single View XRAY; Complete Time: 17:50 kb 02/03 16:50 Order name: Flu; Complete Time: 17:25 kb 02/03 16:50 Order name: COVID-19 SARS RT PCR (Document "Date of Onset" if Symptomatic); Complete kb Time: 18:08 02/03 18:09 Order name: Glucose, Ancillary Testing; Complete Time: 18:09 EDMS 02/03 20:43 Order name: Urine Culture EDMS 02/03 20:49 Order name: CT Abd/Pelvis - IV Contrast Only; Complete Time: 21:41 kb 02/03 22:00 Order name: Urine Dipstick-Ancillary; Complete Time: 22:10 EDMS 02/03 16:49 Order name: Accucheck; Complete Time: 17:54 kb 02/03 16:49 Order name: Cardiac monitoring; Complete Time: 17:54 kb 02/03 16:49 Order name: EKG - Nurse/Tech; Complete Time: 17:54 kb 08 16:49 Order name: IV Saline Lock - Large Bore; Complete Time: 17:39 kb 02/03 16:49 Order name: Labs collected and sent; Complete Time: 17:39 kb 02/03 16:49 Order name: O2 Per Protocol; Complete Time: 17:39 kb 08 16:49 Order name: O2 Sat Monitoring; Complete Time: 17:39 kb 02/03 16:49 Order name: Urine Dipstick-Ancillary (obtain specimen); Complete Time: 20:31 kb EC/03 17:55 Rate is 109 beats/min. Rhythm is regular. Left axis deviation noted. LA interval is kb prolonged at 202 msec. QRS interval is normal at 96 msec. QT interval is prolonged at 503 msec. Administered Medications: 16:53 CANCELLED (Duplicate Order): Acetaminophen 1000 mg PO once kb 17:30 Drug: Zofran (Ondansetron) 4 mg Route: IVP; Site: right wrist; kr3 18:22 Follow up: Response: No adverse reaction kr3 17:30 Drug: Ibuprofen 600 mg Route: PO; kr3 18:22 Drug: Pramipexole 0.75 mg Route: PO; kr3 20:21 Drug: NS 0.9% 500 ml Route: IV; Rate: bolus; Site: right wrist; sm5 21:00 Follow up: IV Status: Completed infusion; IV Intake: 500ml 5 20:58 Drug: morphine 4 mg Route: IVP; Infused Over: 4 mins; Site: right wrist; 5 02/04 00:27 Follow up: Response: No adverse reaction; RASS: Alert and Calm (0) 5 02/03 22:58 Drug: Zofran (Ondansetron) 4 mg Route: IVP; Site: right wrist; 5 02/04 00:26 Follow up: Response: No adverse reaction [facility] Disposition: 02/03 22:15 Co-signature as Attending Physician, Charles Gupta MD I agree with the assessment and rn plan of care. 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 HPI: 76 year old with 1 day of fever, nausea/vomiting/loose stool. + exposure to caregiver with similar symptoms My personal exam of patient reveals: Nontender abdomen without guarding. + chronic lymphedema changes to lower extremities without cellulitis or fluctuance. I agree with assessment and care plan and confirm the diagnosis (es) above. Disposition Summary: 02/03/22 22:11 Discharge Ordered Location: Home kb Condition: Stable kb Diagnosis - Fever, unspecified kb - Nausea with vomiting, unspecified kb Followup: kb - With: Private Physician - When: 2 - 3 days - Reason: Recheck today's complaints, Continuance of care, Re-evaluation by your physician Followup: kb - With: Emergency Department - When: As needed - Reason: Worsening of condition Discharge Instructions: - Discharge Summary Sheet kb - Viral Gastroenteritis, Adult, [id number] kb - Nausea and Vomiting, Adult, [id number] kb - Fever, Adult, [id number] kb Forms: - Medication Reconciliation Form kb - Thank You Letter kb - Antibiotic Education kb - Prescription Opioid Use kb Prescriptions: - ondansetron 4 mg Oral tablet,disintegrating - take 1 tablet by ORAL route every 6 hours As needed; 10 tablet; Refills: 0, kb Product Selection Permitted - Bactrim DS 800-160 mg Oral Tablet - take 1 tablet by ORAL route every 12 hours for 10 days; 20 tablet; Refills: 0, kb Product Selection Permitted Signatures: Dispatcher [employer] EDCO Maryuri Almonte, TRUCK MECHANIC-C TRUCK MECHANIC-Ckb Charles Gupta MD MD rn Mazur, Sarah, RN RN sm5 Nettie Hoffman RN RN kr3 Corrections: (The following items were deleted from the chart) 16:43 16:38 Allergies: Codeine; kr3 kr3 16:43 16:38 PMHx: Diabetes - NIDDM; kr3 kr3 16:43 16:38 PMHx: Hypertension; kr3 kr3 16:43 16:38 PMHx: Hypothyroidism; kr3 kr3 16:43 16:38 PMHx: Hyperlipidemia; kr3 kr3 16:43 16:38 PMHx: Bronchitis; kr3 kr3 16:43 16:38 PMHx: Cellulitis; kr3 kr3 43 16:38 PMHx: kidney disease; kr3 kr3 16:38 PMHx: Glaucoma; kr3 kr3 16:38 PMHx: lymphedema; kr3 kr3 16: 16:49 Acetaminophen 1000 mg PO once ordered. kb kb
[2022-02-04 02:30] VITALS: TEMP 100.5
[2022-02-04 02:35] VITALS: BP 155/87; O2SAT 92
--- NOTE | 2022-02-05 15:11 | EKG ---
Test Date: 2022-02-03 Test Time: 17:46:45 Carbonation Equipment Tender: MANUEL MEASUREMENT RESULTS: Intervals: Rate: 109 DE: 202 QRSD: 96 QT: 374 QTc: 503 [place]: P: 69 DE: 202 QRS: -39 T: 73 INTERPRETIVE STATEMENTS: Sinus tachycardia with premature supraventricular complexes Left axis deviation Septal infarct, age undetermined Abnormal ECG Compared to ECG 05/08/2021 10:25:57 Atrial premature complex(es) now present Sinus rhythm no longer present Sinus arrhythmia no longer present Myocardial infarct finding still present Electronically Signed On 02-05-22 15:08:47 CDT by Christofer Zepeda
== END 2022-02-04 00:27 | disposition home or self-care (01) ==
LOC: ER 16:20
DX: R50.9 Fever, unspecified (principal); R11.2 Nausea with vomiting, unspecified; R42 Dizziness and giddiness; Z20.822 Contact with and (suspected) exposure to COVID-19; Z88.3 Allergy status to other anti-infective agents; Z88.5 Allergy status to narcotic agent; Z88.8 Allergy status to other drugs, medicaments and biological substances
CPT/HCPCS: 96361; 93005; 87040; 87088; 85025; 87086; 36415; 87205; 85610; 82947; 83605; 85730; 87077 ×2; 87186 ×2; 80053; 87804 ×2; 74177; 71045; 96375; 96374; 99284; U0003; Q9967; J7040; J2405 ×2; 81003; 81015

== ENCOUNTER 2024-02-25 23:32 | Emergency (ER) | payer OTHER ==
[2024-02-25] MEDS ORDERED: MORPHINE 4 MG/ML SYR ONE (23:36)
[2024-02-25] MEDS ORDERED: ONDANSETRON 4 MG/2 ML VIAL ONE (23:36)
[2024-02-25] MEDS ORDERED: HALOPERIDOL LACT 5 MG/ML INJ ONE (23:36)
[2024-02-25 23:51] LABS: Absolute Eosinophils 0.2 K/uL (0-0.5); Absolute Lymphocytes (CBC) 0.8 K/uL (0.7-4.9); Absolute Monocytes 0.6 K/uL (0.1-1.3); Absolute Neutrophil 7.8 K/uL (1.8-8.0); Basophils % 0.4 % (0-1.3); Eosinophils % 2.2 % (0-4.4); Hematocrit 32.7 % (36.0-45.0); Hemoglobin 10.7 g/dL (12.0-15.0); Lymphocytes % 8.5 % (15.3-44.8); MCHC 32.8 g/dL (32.0-36.0); MCV 76.2 fL (80-100); MPV 8.1 fL (7.6-11.3); Monocytes % 6.1 % (3.3-12.3); Neutrophils % 82.8 % (41.7-73.7); Platelets 249 thou/uL (152-406); RBC Red Blood Cell Count 4.29 M/uL (3.86-4.86)
[2024-02-25] MEDS ORDERED: KETOROLAC 30 MG/ML INJ ONE (23:51)
[2024-02-25] MEDS ORDERED: MORPHINE 2 MG/ML SYR ONE (23:53)
[2024-02-26 00:06] LABS: Albumin/Globulin Ratio 0.7 (1.1-1.8); Alkaline Phosphatase 48 U/L (45-117); Anion Gap 9.6 mEq/L (5.0-15.0); BUN Blood Urea Nitrogen 20 mg/dL (7-18); Bicarbonate 28 mEq/L (21-32); Bilirubin Total 0.5 mg/dL (0.2-1.0); Globulin 4.2 g/dL (2.3-3.5); Glomerular Filtration Rate 32 ml/min (=/>90); Glucose Level 173 mg/dL (74-106); Potassium 3.6 mEq/L (3.5-5.1); Protein, Total 7.2 g/dL (6.4-8.2); Sodium Level 138 mEq/L (136-145)
[2024-02-26 00:09] LABS: ALT/SGPT < 14 U/L (13-56); AST/SGOT < 10 U/L (15-37)
--- OUTSIDE RECORDS SUMMARY | 2024-02-26 00:34 | XMS REPORT | Continuity of Care Document ---
Author Name Unknown Address [address] [facility] [address] [place] [address] [facility] thconnect Address [address] [facility] [address] [place] [address] Care Team Providers Care Cashier Wrapper Name Role Phone OCHOA ESCAMILLA Primary Care Physician Unav ailable [id number] Attending Clinician Unavailable GARDEN CONSULTANT PENDING, GARDEN CONSULTANT PENDING Attending Clinician Unavailable JAMSHID EARLY Attending Clinician Unavaila JAYDEN Leone Attending Clinician Unavailable XENIA LOMELI Attending Clinician Unavailable XENIA LOMELI Attending Clinician Unavailable BRIAN ISRAEL Attending Clinician Unavailable BRIAN ISRAEL Attending Clinician Unavailable Brian Israel MD Attending Clinician Fany EPPS, Jerome Attending Clinician [phone] Shahzad Wyatt MD Attending Clinician Alirio EPPS, Jamshid MaloneH. Attending Clinician +[phone] Abigail Ley RN Attending Clinician Unavailable SHAHZAD PRO Attending Clinician Unavailable Doctor Unassigned, Medicine Bow Attending Clinician U navailable Lab, Ang - Db Attending Clinician Unavailable Sofia LOWE, Bridgette Stevens Attending Clinician Unavail able DANIELLA HAWK Attending Clinician Unavailab mauricio Hawk MD, Daniella Attending Clinician + [phone] Ivy EPPS, Wale Bhandari Attending Clinician +- [phone] Nehal Mason Attending Clinician [phone] STEPH NUR Attending Clinician Unavailable Steph Nur MD Attending Clinician [phone] Alirio EPPS, Jamshid K.H. Attending Clinician [phone], Adc Lab Attending Clinician Unavailable DAVID LIMA Attending Clinician Unavailable DAVID LIMA Attending Clinician Unavailable Simba Bailey RN Attending Clinician UnavailMICHOACANO Moise Attending Clinician Unavailable MICHOACANO WILKES Attending Clinician Unavailable Michoacano Wilkes DO Attending Clinician +[phone] Erick Larios MD Attending Clinician +[phone] NEHAL TITUS Attending Clinician Unavailable José Miguel Bedolla MD Attending Clinician [phone] Pranav [facility], Jina A Attending Clinician Unavail able Fany EPPS, Jerome Attending Clinician [phone] ERICK LARIOS Attending Clinician Unavailable JOSÉ MIGUEL BEDOLLA Attending Clinician Unavailable Alda Morrison RN Attending Clinician Unavailab GERMÁN Mcdaniel Attending Clinician Unavailable Tootie Chen Attending Clinician +[phone] Germán Alvarenga DO Attending Clinician +[phone] Rodo Gomez RN Attending Clinician Unavail able Mary Poon MD Attending Clinician +[phone] Allison MD, Dagmar M Attending Clinician + [phone] ROEL HOANG Attending Clinician UnavailSAM Rodriguez Attending Clinician Unavailtorres Culp MD, Ramírez Attending Clinician + [phone] Shane EPPS, Sam Delgado Attending Clinician + [phone] Dilcia AGACNP, Roel Attending Clinician +[phone] MARYCARMEN ROJAS Attending Clinician Unavailable Valarie POLISHER NUMERAL, Marycarmen Stevens Attending Clinician + [phone] MISA CEBALLOS Attending Clinician CONSTANCE Gutiérrez Attending Clinician Unavailtorres Kelly [facility], Talia Stevens Attending Clinician + [phone] Misa Ceballos DPM Attending Clinician + BLADIMIR FERRARO Attending Clinician Unavailable Patel Betancur MD Attending Clinician + [phone] Nayley Jarvis MD Attending Clinician +[phone] Bladimir Ferraro MD Attending Clinician +[phone] Hung EPPS, Sushil Attending Clinician +[phone] Jovany Bronson DO Attending Clinician + [phone] Jason Mckinney MD Attending Clinician +[phone] Asael POLISHER NUMERAL, Les Attending Clinician +[phone] LES VYAS Attending Clinician Unavailable Piper Goddard DO Attending Clinician +[phone] Pavithra Rachel PTA Attending Clinician Unavail Philippe Ashby MD Attending Clinician +[phone] PHILIPPE LARSEN Attending Clinician UnavailGARY Gilbert Attending Clinician Constance Corbin MD Attending Clinician +- [phone] Gary Schwartz Attending Clinician +[phone] JOSH Attending Clinician Unavailable Armand Ball Attending Clinician [phone] APOLLO REESE Attending Clinician Unavailable Dylan MD, Randi S Attending Clinician +- [phone] Sylvain EPPS, Apollo Rust Attending Clinician +[phone] Sebastian EPPS, Clay Attending Clinician +[phone] CLAY CASE Attending Clinician Unavailable Simon Nixon PT, Arlet Attending Clinician Un available Manish Mckeon Rahil Attending Clinician Unavail able MONIQUE GALLO Attending Clinician Unavailab Nj Morgan APN Attending Clinician + [phone] Luisa EPPS, Monique Howard Attending Clinician + [phone] Zachary EPPS, Natalio Attending Clinician +[phone] NATALIO VIGIL Attending Clinician Unavailable See Fish MD Attending Clinician +[phone] Lilly Hinds MD Attending Clinician +[phone] ASYA WALSH Attending Clinician Unavailab CHUCHO Menendez Attending Clinician Unavailabl Jacquelyn Turk RN Attending Clinician +[phone] Bartolome Haley MD Attending Clinician [phone] Gavin Singletary Attending Clinician + [phone] CHUCHO DEL REAL JR Attending Clinician Unavaila ble [facility] Attending Clinician Unavailable Only, Adc Test Attending Clinician Unavailable Mindi HEARN, Lisa Ramos Attending Clinician +[phone] Ochoa Escamilla MD Attending Clinician +[phone] , [facility] Vascular Room 1 - Attending Clinician Un available Jayden Mitchell MD Attending Clinician +[phone] Dara Golden MD Attending Clinician [phone] Admitting Clinician Unavailable SHAHZAD PRO Admitting Clinician Unavailable STEPH NUR Admitting Clinician Unavailable GERMÁN ALVARENGA Admitting Clinician Unavailable Germán Alvarenga DO Admitting Clinician +[phone] JEROME SOARES Admitting Clinician Unavailable SAM MEREDITH Admitting Clinician UnavailSam Rodriguez MD Admitting Clinician +[phone] EARLY, SENDIL K.H. Admitting Clinician Unavaila BLADIMIR Allen Admitting Clinician Unavailable Bladimir Ferraro MD Admitting Clinician +[phone] ERICKSON_R Admitting Clinician Unavailable APOLLO REESE Admitting Clinician Unavailable Apollo Reese MD Admitting Clinician aMnish Mckeon Rahil Admitting Clinician Unavail MONIQUE Puente Admitting Clinician Unavailab Hilda EPPS, Monique Howard Admitting Clinician +[phone] LILLY HINDS Admitting Clinician Unavailable Guzman EPPS, Lilly Admitting Clinician [phone] Payers Payer Name Policy Type Policy Number Effective Date Expirati on Date Source MEDICARE PART A AND B [id number] 2011 00:00:00 MCR MCR [id number] MISC MISC [id number] MEDICARE PART A \\T\\ B [id number] 2011 00:00:00 [employer] [id number] 2011 00:00:00 [place]: [employer] [id number] 2011 00:00:00 [employer] [id number] 2011 00:00:00 Problems Condition Name Condition Details Condition Category Status Onset Date Resolution Date Last Treatment Date Treating Clinician Comments Source Acute pulmonary edema Acute pulmonary edema Disease Active 01-15 00:00: 00 [facility] Cardiomega ly Cardiomega ly Disease Active 01-15 00:00: 00 [facility] Ankle wound, right, sequela Ankle wound, right, sequela Disease Active 2022-07 2-04 00:00: 00 [facility] Obesity (BMI 30-39.9) Obesity (BMI 30-39.9) Disease Active 2022-07 0-16 00:00: 00 [facility] PAF (paroxysma l atrial fibrillati on) PAF (paroxysma l atrial fibrillati on) Disease Active 2022-07 0-11 00:00: 00 [facility] Acute on chronic diastolic congestive heart failure Acute on chronic diastolic congestive heart failure Disease Active 2022-07 0-10 00:00: 00 [facility] Peripheral arterial disease Peripheral arterial disease Disease Active 9-07 00:00: 00 [facility] At risk for falls At risk for falls Disease Active 9-05 00:00: 00 [facility] Unspecifie d abnormalit ies of gait and mobility Unspecifie d abnormalit ies of gait and mobility Disease Active 9-05 00:00: 00 [facility] Controlled substance agreement signed Controlled substance agreement signed Disease Active 9 00:00: 00 [facility] Chronic diastolic congestive heart failure Chronic diastolic congestive heart failure Disease Active 8- 00:00: 00 [facility] Pulmonary hypertensi on Pulmonary hypertensi on Disease Active 8- 00:00: 00 [facility] Lethargy Lethargy Disease Active 8 00:00: 00 [facility] Troponin I above reference range Troponin I above reference range Disease Active 2021-07 2-30 00:00: 00 [facility] UTI (urinary tract infection) UTI (urinary tract infection) Disease Active 2021-07 2- 00:00: 00 [facility] Acute on chronic diastolic heart failure Acute on chronic diastolic heart failure Disease Active 2021-07 2 00:00: 00 [facility] Elevated brain natriureti c peptide (BNP) level Elevated brain natriureti c peptide (BNP) level Disease Active 2021-07 2- 00:00: 00 [facility] Elevated brain natriureti c peptide (BNP) level Elevated brain natriureti c peptide (BNP) level Disease Active 2021-07 2- 00:00: 00 [facility] Vomiting Vomiting Disease Active 2021-07 2-24 00:00: 00 [facility] Morbid obesity Morbid obesity Disease Active 8- 00:00: 00 [facility] CHAD (obstructi ve sleep apnea) CHAD (obstructi ve sleep apnea) Disease Active 8- 00:00: 00 [facility] Sepsis Sepsis Disease Active 8 00:00: 00 [facility] Hypertensi ve emergency Hypertensi ve emergency Disease Active 8 00:00: 00 [facility] Acute bilateral venous stasis dermatitis Acute bilateral venous stasis dermatitis Disease Active 8 00:00: 00 [facility] Positive blood culture Positive blood culture Disease Active 8 00:00: 00 [facility] Acute respirator y failure with hypoxia Acute respirator y failure with hypoxia Disease Active 8 00:00: 00 [facility] Bilateral pleural effusion Bilateral pleural effusion Disease Active 8 00:00: 00 [facility] Pneumonia due to infectious organism Pneumonia due to infectious organism Disease Active 8 00:00: 00 [facility] Acute diastolic heart failure Acute diastolic heart failure Disease Active 8 00:00: 00 [facility] Acute bilateral venous stasis dermatitis Acute bilateral venous stasis dermatitis Disease Active 8 00:00: 00 [facility] Acute renal insufficie ncy Acute renal insufficie ncy Disease Active 01-29 00:00: 00 [facility] Chronic constipati on Chronic constipati on Disease Active 01-29 00:00: 00 [facility] Diarrhea Diarrhea Disease Active 01-29 00:00: 00 [facility] Hypovolemi c shock Hypovolemi c shock Disease Active 01-29 00:00: 00 [facility] Edema of right lower leg Edema of right lower leg Disease Active 2-14 00:00: 00 [facility] Mixed hyperlipid emia Mixed Hyperlipid emia Problem Active 1- 00:00: 00 [facility] Cellulitis of right lower leg Cellulitis of right lower leg Disease Active 07-14 00:00: 00 [facility] Chronic hypokalemi a Chronic Hypokalemi a Problem Active 2020-07 00:00: 00 [facility] Anemia Anemia Problem Active 2020-07 00:00: 00 [facility] Stasis dermatitis Stasis Dermatitis Problem Active 2020-07 00:00: 00 [facility] Lymphedema of lower extremity Lymphedema of Lower Extremity Problem Active 2020-07 00:00: 00 [facility] Cardiac arrhythmia Cardiac Arrhythmia Problem Active 2020-07 00:00: 00 [facility] Body mass index 30+ - obesity Body Mass Index 30+ - Obesity Problem Active 01-13 00:00: 00 [facility] VTE (venous thromboemb olism) VTE (venous thromboemb olism) Disease Active 01-10 00:00: 00 [facility] PAD (periphera l artery disease) PAD (periphera l artery disease) Disease Active 01-10 00:00: 00 [facility] Chronic deep vein thrombosis (DVT) of femoral vein of right lower extremity Chronic deep vein thrombosis (DVT) of femoral vein of right lower extremity Disease Active 01-10 00:00: 00 [facility] Class 3 severe obesity due to excess calories in adult, unspecifie d BMI, unspecifie d whether serious comorbidit y present Class 3 severe obesity due to excess calories in adult, unspecifie d BMI, unspecifie d whether serious comorbidit y present Disease Active 01-10 00:00: 00 [facility] Restless legs Restless Legs Problem Active 5 00:00: 00 [facility] Chronic upper back pain Chronic upper back pain Disease Active 10-30 00:00: 00 [facility] Chronic pain syndrome Chronic Pain Syndrome Problem Active 10-30 00:00: 00 [facility] Pruritus of skin Pruritus of Skin Problem Active 4 00:00: 00 [facility] [place] [facility] Hypokalemi a Hypokalemi a Problem Active 4 00:00: 00 [facility] Carpal tunnel syndrome Carpal Tunnel Syndrome Problem Active 4 00:00: 00 [facility] [place] [facility] Respirator y tract congestion and cough Respirator y Tract Congestion and Cough Problem Active 3-09 00:00: 00 [facility] Gastroesop hageal reflux disease Gastroesop hageal Reflux Disease Problem Active 2 00:00: 00 [facility] [place] [facility] Peripheral vascular disease Peripheral Vascular Disease Problem Active 07-17 00:00: 00 [facility] [place] [facility] 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 Varicose Veins of the Leg with Ulcer and Eczema Problem Active 07-17 00:00: 00 [facility] [place] [facility] Musculoske letal instabilit y Musculoske letal Instabilit y Problem Active 2019-07 020 00:00: 00 [facility] History of fracture History of Fracture Problem Active 2019-07 00:00: 00 [facility] [place] [facility] History of fall History of Fall Problem Active 2019-07 020 00:00: 00 [facility] Difficulty walking Difficulty Walking Problem Active 2019-07 0 00:00: 00 [facility] [place] [facility] Peripheral neuropathy due to type 2 diabetes mellitus Peripheral Neuropathy Due to Type 2 Diabetes Mellitus Problem Active 2019-07 008 00:00: 00 [facility] [place] [facility] Cellulitis and abscess of right lower extremity Cellulitis and abscess of right lower extremity Disease Active 15 00:00: 00 [facility] Chronic kidney disease stage 3 Chronic Kidney Disease Stage 3 Problem Active 11 00:00: 00 [facility] [place] [facility] Hypothyroi dism Hypothyroi dism Problem Active 03-13 00:00: 00 [facility] Diabetes mellitus Diabetes Mellitus Problem Active 0 9- 00:00: 00 [facility] Iron deficiency anemia Iron Deficiency Anemia Problem Active 0 - 00:00: 00 [facility] Neuropathy Neuropathy Problem Active 0 - 00:00: 00 [facility] Glaucoma Glaucoma Problem Active 0 - 00:00: 00 [facility] Hypertensi ve disorder Hypertensi ve Disorder Problem Active 0 - 00:00: 00 [facility] Deep venous thrombosis Deep Venous Thrombosis Problem Active 0 - 00:00: 00 [facility] Lymphedema Lymphedema Problem Active 0 03-13 00:00: 00 [facility] Cellulitis Cellulitis Problem Active 0 - 00:00: 00 [facility] Memory impairment Memory Impairment Problem Active 03-13 00:00: 00 [facility] Secondary restless legs syndrome Secondary Restless Legs Syndrome Problem Active 03-13 00:00: 00 [facility] History of transient ischemic attack History of transient ischemic attack Disease Active 8-06 00:00: 00 [facility] Cellulitis of unspecifie d part of limb Cellulitis of unspecifie d part of limb Disease Active 0 1-08 00:00: 00 [facility] Allergic rhinitis, unspecifie d Allergic rhinitis, unspecifie d Disease Active 2018-07 00:00: 00 [facility] Chronic atrial fibrillati on, unspecifie d Chronic atrial fibrillati on, unspecifie d Disease Active 2018-07 00:00: 00 [facility] Gastroesop hageal reflux disease without esophagiti s Gastroesop hageal reflux disease without esophagiti s Disease Active 2018-07 00:00: 00 [facility] Iron deficiency anemia Iron deficiency anemia Disease Active 2018-07 00:00: 00 [facility] Localized edema Localized edema Disease Active 2018-07 00:00: 00 [facility] Age-relate d physical debility Age-relate d physical debility Disease Active 2018-07 00:00: 00 [facility] Lymphedema , not elsewhere classified Lymphedema , not elsewhere classified Disease Active 2018-07 00:00: 00 [facility] Chronic venous hypertensi on (idiopathi c) with inflammati on of bilateral lower extremity Chronic venous hypertensi on (idiopathi c) with inflammati on of bilateral lower extremity Disease Active 2018-07 00:00: 00 [facility] Bacteremia Bacteremia Disease Active 2018-07 00:00: 00 [facility] Chronic venous hypertensi on (idiopathi c) with inflammati on of bilateral lower extremity Chronic venous hypertensi on (idiopathi c) with inflammati on of bilateral lower extremity Disease Active 2018-07 00:00: 00 [facility] Fluid overload, unspecifie d Fluid overload, unspecifie d Disease Active 2018-07 00:00: 00 [facility] 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 Disease Active 2018-07 00:00: 00 [facility] Cellulitis of right leg Cellulitis of right leg Disease Active 2018-07 009 00:00: 00 [facility] Excessive daytime sleepiness Excessive daytime sleepiness Disease Active 1-02 00:00: 00 [facility] Displaced bimalleola r fracture Displaced bimalleola r fracture Disease Active 2016-07 0 00:00: 00 [facility] Fracture of calcaneus Fracture of calcaneus Disease Active 2016-07 00:00: 00 [facility] Controlled type 2 diabetes mellitus without complicati on, with long-term current use of insulin Controlled type 2 diabetes mellitus without complicati on, with long-term current use of insulin Disease Active 5-13 00:00: 00 [facility] Essential hypertensi on Essential hypertensi on Disease Active 2014-0724 00:00: 00 [facility] Hyperlipid emia Hyperlipid emia Disease Active 2014-07 00:00: 00 [facility] Hypothyroi dism (acquired) Hypothyroi dism (acquired) Disease Active 2014-07 00:00: 00 [facility] Allergies, Adverse Reactions, Alerts Allergy Name Allergy Type Status Severity Reaction(s) Onset Date Inactive Date Treating Clinician Comments Source LISINOPR IL DRUG INGREDI Active Dizziness 2021-07 00:00: 00 [facility] Lisinopr il Propensi ty to adverse reaction s Active Other - See comments 2021-07 00:00: 00 Patient had low blood pressure, elevated Cr per patient [facility] LOSARTAN DRUG INGREDI Active COUGH 2021-07 00:00: 00 [facility] Losartan Propensi ty to adverse reaction s Active Cough 2021-07 00:00: 00 [facility] CODEINE DRUG INGREDI Active Hallucinates 2020-0 5-04 00:00: 00 [facility] Clindamy molly Drug Allergy Active Rash 2020-0 5-04 00:00: 00 [facility] CLINDAMY MOLLY DRUG INGREDI Active Rash 2020-0 5-04 00:00: 00 [facility] Codeine Drug Allergy Active Dizziness 2020-0 5-04 00:00: 00 [facility] SULFA (SULFONA MIDE ANTIBIOT ICS) Drug Class Active N/V -06 00:00: 00 [facility] Sulfa (Sulfona mide Antibiot ics) Propensi ty to adverse reaction s Active Nausea and/or Vomiting -06 00:00: 00 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, at 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, tolerated fine with bendryl [facility] ERYTHROM YCIN DRUG Active Hives 0 9-11 00:00: 00 [facility] METFORMI N DRUG INGREDI Active Hallucinates 9-11 00:00: 00 [facility] Erythrom ycin Propensi ty to adverse reaction s Active Itching -11 00:00: 00 [facility] Metformi n Propensi ty to adverse reaction s Active Hallucinatio ns 0 911 00:00: 00 "FREAKED OUT" FLOOR & CEILING MET, ROOM SPUIN [facility] ADHESIVE TAPE-MANDEEP ICONES DRUG Active Rash 2019-0 2-14 00:00: 00 [facility] Adhesive Tape-Mandeep icones Drug Allergy Active Rash 0 2-14 00:00: 00 [facility] CIPROFLO XACIN DRUG INGREDI Active ITCHING 2017-07 0 00:00: 00 [facility] METRONID AZOLE DRUG INGREDI Active Unknown-Cmnt 2017-07 00:00: 00 [facility] Ciproflo xacin Propensi ty to adverse reaction s Active Itching 2017-07 00:00: 00 [facility] Metronid azole Propensi ty to adverse reaction s Active Unknown - See comments 2017-07 00:00: 00 [facility] LOSARTAN POTASSIU M DRUG INGREDI Active High SOB 2016-0 03-22 00:00: 00 [facility] Losartan Potassiu m Propensi ty to adverse reaction s Active Cough 0 03-22 00:00: 00 [facility] PENTOXIF YLLINE DRUG INGREDI Active ITCHING 0 15 00:00: 00 [facility] Pentoxif ylline Propensi ty to adverse reaction s Active Shortness of Breath 0 15 00:00: 00 [facility] MACROLID E ANTIBIOT ICS Drug Class Active Low Rash 2014-07 00:00: 00 [facility] PENICILL IN DRUG INGREDI Active Rash 2014-07 00:00: 00 [facility] Macrolid e Antibiot ics Drug Allergy Active Other - See comments 2014-07 00:00: 00 [facility] Penicill in Propensi ty to adverse reaction s Active Rash 2014-07 00:00: 00 [facility] Macrolid e Antibiot ics Propensi ty to adverse reaction s Active Rash 2014-08-12 00:00: 00 [facility] Metformi n Allergy to substanc e Active Moderate to severe Hallucinatio ns [facility] Cipro Allergy to substanc e Active Mild Chest pain [facility] Clindamy molly Allergy to substanc e Active Rash [facility] Losartan Allergy to substanc e Active Cough [facility] MACROLID E ANTIBIOT ICS Allergy to substanc e Active Chest pain [facility] PENICILL INS Allergy to substanc e Active [facility] Pentoxif ylline Allergy to substanc e Active Chest pain [facility] SULFA (SULFONA MIDE ANTIBIOT ICS) Allergy to substanc e Active Moderate to severe Vomiting [facility] Social History Social Habit Start Date Stop Date Quantity Comments Source History SDOH Alcohol Std Drinks [facility] History SDOH Alcohol Binge [facility] History SDOH Social Connections Get Together [facility] History SDOH Social Connections Yazdanism [facility] History SDOH Social Connections Membership [facility] History SDOH Social Connections Meetings [facility] Gender identity [facility] of [facility] use Passive smoker [facility] Alcoholic beverage intake 2024-01-31 00:00:00 2024-01-31 00:00:00 0 /d [facility] Alcohol intake 2023-10-30 00:00:00 2023-10-30 00:00:00 0 /d [facility] History of Social function 2023-05-05 00:00:00 2023-05-05 00:00:00 [facility] Exposure to SARS-CoV-2 (event) 2022-09-18 00:00:00 2022-09-28 10:27:00 Not sure [facility] History SDOH Alcohol Frequency 2022-06-28 00:00:00 2022-06-28 00:00:00 1 [facility] History SDOH Social Connections Phone 2022-06-28 00:00:00 2022-06-28 00:00:00 1 [facility] History SDOH Social Connections Living 2022-06-28 00:00:00 2022-06-28 00:00:00 7 [facility] History SDOH Physical Activity DPW 2022-06-28 00:00:00 2022-06-28 00:00:00 7 [facility] History SDOH Physical Activity MPS 2022-06-28 00:00:00 2022-06-28 00:00:00 2 [facility] History SDOH Financial 2022-06-28 00:00:00 2022-06-28 00:00:00 5 [facility] History SDOH Food Worry 2022-06-28 00:00:00 2022-06-28 00:00:00 1 [facility] History SDOH Food Scarcity 2022-06-28 00:00:00 2022-06-28 00:00:00 1 [facility] History SDOH Transport Med 2022-06-28 00:00:00 2022-06-28 00:00:00 2 [facility] History SDOH Transport Non-Med 2022-06-28 00:00:00 2022-06-28 00:00:00 2 [facility] Tobacco use and exposure 2022-02-06 00:00:00 2022-02-06 00:00:00 Smokeless tobacco non-user [facility] Tobacco Comment 2022-01-29 00:00:00 2022-01-29 00:00:00 exposed to 2nd hand smoke [facility] Education 2019-04-11 00:00:00 2019-04-11 00:00:00 21 [facility] Sex assigned at 1945 00:00:00 1945 00:00:00 [facility] Smoking Status Start Date Stop Date Source Never smoked tobacco [facility] Medications Ordered Medication Name Filled Medication Name Start Date Stop Date Current Medication? Ordering Clinician Indication Dosage Frequency Signature (SIG) Comments Components Source BACLOFEN 10 mg tablet 02-23 00:00: 00 Yes [id number] TAKE ONE (1) TABLET(S) BY MOUTH THREE TIMES A DAY NEEDED FOR RESTLESS LEGS PAIN. [facility] CLOPIDOGREL 75 mg tablet 02-15 00:00: 00 Yes [id number] TAKE ONE (1) TABLET(S) BY MOUTH IN THE MORNING. [facility] TRESIBA FLEXTOUCH U-100 100 unit/mL (3 mL) InPn 02-09 00:00: 00 Yes [id number] INJECT 32 UNITS UNDER THE SKIN ONCE EVERY MORNING. [facility] furosemide 40 mg tablet 01-30 00:00: 00 Yes [id number] TAKE ONE (1) TABLET BY MOUTH EVERY MORNING AND EVENING. [facility] nystatin 100,000 unit/gram powder 01-30 00:00: 00 Yes [id number] Apply to area(s) 3 (three) times daily as needed for Rash. [facility] traMADoL 50 mg tablet 01-30 00:00: 00 Yes [id number] 50mg Take 1 tablet by mouth every 6 (six) hours as needed for Pain (scale 4-6). Indication s: chronic pain [facility] pregabalin 50 mg capsule 01-30 00:00: 00 Yes [id number] TAKE ONE (1) CAPSULE(S) BY MOUTH EVERY NIGHT AT BEDTIME. [facility] hydralAZINE (APRESOLINE ) injection 10 mg 01-16 00:15: 00 01-16 00:28 :00 No 10mg 10 mg, Slow IV Push, ONCE, 1 dose, On Tue01/16/24 at 1915, GI [facility] furosemide (LASIX) injection 40 mg 01-16 00:15: 00 01-16 00:28 :00 No 40mg 40 mg, IV Push, ONCE, 1 dose, On Tue01/16/24 at 1915, GI [facility] sodium chloride (NS) injection 5 mL 01-15 21:16: 36 Yes 5mL 5 mL, Intravenou s, PRN, Starting on Tue01/16/24 at 1616, Until Discontinu ed, Routine, IV line flushing [facility] clopidogreL (PLAVIX) 75 mg tablet 01-12 00:00: 00 Yes [id number] 75mg Take 1 tablet by mouth in the morning. [facility] nystatin 100,000 unit/gram cream 12-26 00:00: 00 Yes [id number] Apply to area(s) 2 (two) times daily. [facility] hydrOXYzine 25 mg tablet 12-26 00:00: 00 Yes [id number] 25mg Take 1 tablet by mouth at bedtime. [facility] cefpodoxime 100 mg tablet 12-26 00:00: 00 Yes [id number] 100mg Take 1 tablet by mouth in the morning and 1 tablet in the evening. [facility] pramipexole 0.75 mg tablet 12-21 00:00: 00 Yes [id number] .75mg TAKE ONE (1) TABLET(S) BY MOUTH AT BEDTIME. [facility] PRAVASTATIN 80 mg tablet 12-21 00:00: 00 Yes [id number] 80mg TAKE ONE (1) TABLET(S) BY MOUTH AT BEDTIME. [facility] baclofen 10 mg tablet 12-21 00:00: 00 02-23 00:00 :00 No [id number] 10mg Take 1 tablet by mouth 3 (three) times daily as needed for Pain (scale 4-6) (for restless legs, may make you sleepy). [facility] insulin aspart U-100 100 unit/mL (3 mL) injection 12-08 00:00: 00 Yes [id number] INJECT THREE TIMES DAILY BEFORE MEALS 12 UNITS AT BREAKFAST, 14 UNITS AT LUNCH, AND 14 UNITS AT SUPPER. IF GLUCOSE > 150, SLIDING SCALE UTILIZED. [facility] METOPROLOL TARTRATE 25 mg tablet 12-08 00:00: 00 Yes [id number] TAKE ONE-HALF (1/2) TABLET(S) BY MOUTH TWICE A DAY (MORNING AND EVENING). [facility] ondansetron 4 mg disintegrat ing tablet 11-20 00:00: 00 Yes [id number] 4mg Take 1 tablet by mouth every 8 (eight) hours as needed for Nausea and Vomiting (N/V). [facility] cephALEXin 500 mg capsule 11-20 00:00: 00 12-26 00:00 :00 No [id number] 500mg Take 1 capsule by mouth in the morning and 1 capsule in the evening. [facility] pravastatin 40 mg tablet 11-10 11:04: 59 Yes 40mg Take 1 tablet by mouth at bedtime. [facility] benzonatate 100 mg capsule 11-10 00:00: 00 Yes [id number] TAKE ONE (1) OR TWO (2) CAPSULE(S) BY MOUTH EVERY EIGHT HOURS NEEDED FOR COUGH. [facility] semaglutide (OZEMPIC) 2 mg/dose (8 mg/3 mL) PnIj 11-10 00:00: 00 Yes [id number] Inject 2mg under skin weekly DX E11.65 REFILLS CAN BE ADDRESSED AT FOLLOW UP APPT 11/22/23 [facility] traMADoL 50 mg tablet 11-10 00:00: 00 01-30 00:00 :00 No [id number] 50mg Take 1 tablet by mouth every 6 (six) hours as needed for Pain (scale 4-6). Indication s: chronic pain [facility] nystatin 100,000 unit/gram powder 11-10 00:00: 00 01-30 00:00 :00 No [id number] Apply to area(s) 3 (three) times daily as needed for Rash. [facility] INSULIN ASPART U-100 100 unit/mL (3 mL) injection 10-31 00:00: 00 12-08 00:00 :00 No [id number] INJECT THREE TIMES DAILY BEFORE MEALS 12 UNITS AT BREAKFAST, 14 UNITS AT LUNCH, AND 14 UNITS AT SUPPER. IF GLUCOSE > 150, SLIDING SCALE UTILIZED. [facility] semaglutide (OZEMPIC) 2 mg/dose (8 mg/3 mL) PnIj 10-31 00:00: 00 11-10 00:00 :00 No Inject 2mg under skin weekly DX E11.65 REFILLS CAN BE ADDRESSED AT FOLLOW UP APPT 11/22/23 [facility] traMADoL (ULTRAM) tablet 50 mg 10-29 20:23: 00 10-29 21:09 :00 No 50mg 50 mg, Oral, ONCE, 1 dose, On 10/30/23 at 1530, GI [facility] pregabalin 50 mg capsule 10-26 00:00: 00 01-30 00:00 :00 No [id number] TAKE ONE (1) CAPSULE(S) BY MOUTH EVERY NIGHT AT BEDTIME. [facility] semaglutide (OZEMPIC) 2 mg/dose (8 mg/3 mL) PnIj 10-26 00:00: 00 10-31 00:00 :00 No REFILLS CAN BE ADDRESSED AT FOLLOW UP APPT 11/22/23 [facility] TRESIBA FLEXTOUCH U-100 100 unit/mL (3 mL) InPn 09-27 00:00: 00 02-09 00:00 :00 No [id number] INJECT 32 UNITS UNDER THE SKIN ONCE EVERY MORNING. [facility] pravastatin 80 mg tablet 09-22 00:00: 00 12-21 00:00 :00 No [id number] 80mg TAKE ONE (1) TABLET(S) BY MOUTH AT BEDTIME. [facility] pravastatin 40 mg tablet 09-20 10:41: 24 Yes 40mg Take 1 tablet by mouth at bedtime. [facility] spironolact one 25 mg tablet 09-20 00:00: 00 Yes [id number] 25mg Take 1 tablet by mouth in the morning. [facility] empaglifloz in (JARDIANCE) 10 mg tablet 09-20 00:00: 00 Yes [id number] 10mg Take 1 tablet by mouth in the morning. [facility] insulin aspart U-100 (NOVOLOG FLEXPEN U-100 INSULIN) 100 unit/mL (3 mL) injection 3 00:00: 00 10-31 00:00 :00 No [id number] INJECT THREE TIMES DAILY BEFORE MEALS 12 UNITS AT BREAKFAST, 14 UNITS AT LUNCH, AND 14 UNITS AT SUPPER. IF GLUCOSE > 150, SLIDING SCALE UTILIZED. [facility] ESCITALOPRA M OXALATE 10 mg tablet 2-19 00:00: 00 Yes [id number] 10mg TAKE ONE (1) TABLET(S) BY MOUTH EVERY MORNING. [facility] TRAZODONE 50 mg tablet 1-16 00:00: 00 Yes [id number] 50mg TAKE ONE (1) TABLET(S) BY MOUTH AT BEDTIME. [facility] pravastatin 40 mg tablet 07-13 08:40: 08 Yes 40mg Take 1 tablet by mouth at bedtime. [facility] pantoprazol e 40 mg EC tablet 07-13 08:40: 08 Yes 40mg Take 1 tablet by mouth in the morning. [facility] montelukast 10 mg tablet 07-13 08:40: 08 Yes 10mg Take 1 tablet by mouth at bedtime. [facility] levothyroxi ne 25 mcg tablet 07-13 08:40: 08 Yes 25ug Take 1 tablet by mouth every morning. [facility] hydrocortis one 1 % cream 07-13 08:40: 08 Yes hydrocorti sone 1 % topical cream APPLY TO AFFECTED AREA 3 TIMES A DAY NEEDED FOR ITCHING [facility] ammonium lactate 12 % cream 07-13 08:40: 08 Yes APPLY TO AFFECTED AREA TWICE A DAY [facility] latanoprost , PF, 0.005 % Drop 07-13 08:40: 08 Yes 1[drp] Place 1 Drop in both eyes at bedtime. [facility] polyethylen e glycol 3350 (MIRALAX) 17 gram/dose powder 07-13 08:40: 08 Yes 17g Take 17 g by mouth in the morning. [facility] clotrimazol e 1 % topical cream 07-13 08:40: 08 12-26 00:00 :00 No Use as directed [facility] nystatin 100,000 unit/gram powder 07-12 00:00: 00 11-10 00:00 :00 No [id number] APPLY TO AFFECTED AREA THREE TIMES A DAY NEEDED FOR RASH. [facility] semaglutide (OZEMPIC) 2 mg/dose (8 mg/3 mL) PnIj 07-12 00:00: 00 10-26 00:00 :00 No INJECT TWO (2) MG UNDER THE SKIN ONCE WEEKLY. [facility] traMADoL 100 mg Tab 07-08 14:50: 51 07-08 00:00 :00 No 50mg Take 50 mg by mouth at bedtime. [facility] venlafaxine XR 75 mg 24 hr capsule 07-08 14:08: 55 Yes 75mg Take 1 capsule by mouth in the morning. [facility] fluticasone propionate 50 mcg/actuati on nasal spray 07-08 14:08: 55 Yes 2{spray } Use 2 Sprays in each nostril once daily as needed. [facility] fluticasone furoate 200 mcg/actuati on DsDv 07-08 14:08: 55 Yes INHALE 1 PUFF BY MOUTH EVERY 24 HOURS [facility] diphenhydrA MINE (BANOPHEN) 25 mg capsule 07-08 14:08: 55 Yes 25mg Take 1 capsule by mouth every 6 (six) hours as needed. [facility] albuterol (VENTOLIN HFA) 90 mcg/actuati on inhaler 07-08 14:08: 55 Yes INHALE 2 PUFFS EVERY 6 (SIX) HOURS IF NEEDED FOR WHEEZING OR SHORTNESS OF BREATH FOR UP TO 10 DAYS [facility] fluticasone furoate 200 mcg/actuati on DsDv 07-08 14:08: 55 Yes INHALE 1 PUFF BY MOUTH EVERY 24 HOURS [facility] pravastatin 40 mg tablet 07-08 14:06: 22 Yes 40mg Take 1 tablet by mouth at bedtime. [facility] pantoprazol e 40 mg EC tablet 07-08 14:06: 22 Yes 40mg Take 1 tablet by mouth in the morning. [facility] montelukast 10 mg tablet 07-08 14:06: 22 Yes 10mg Take 1 tablet by mouth at bedtime. [facility] levothyroxi ne 25 mcg tablet 07-08 14:06: 22 Yes 25ug Take 1 tablet by mouth every morning. [facility] hydrocortis one 1 % cream 07-08 14:06: 22 Yes hydrocorti sone 1 % topical cream APPLY TO AFFECTED AREA 3 TIMES A DAY NEEDED FOR ITCHING [facility] clotrimazol e 1 % topical cream 07-08 14:06: 22 Yes Use as directed [facility] ammonium lactate 12 % cream 07-08 14:06: 22 Yes APPLY TO AFFECTED AREA TWICE A DAY [facility] latanoprost , PF, 0.005 % Drop 07-08 14:06: 22 Yes 1[drp] Place 1 Drop in both eyes at bedtime. [facility] polyethylen e glycol 3350 (MIRALAX) 17 gram/dose powder 07-08 14:06: 22 Yes 17g Take 17 g by mouth in the morning. [facility] hydrOXYzine 25 mg tablet 07-08 00:00: 00 12-26 00:00 :00 No [id number] 25mg Take 1 tablet by mouth every 12 (twelve) hours as needed for Itching. [facility] traMADoL 50 mg tablet 07-08 00:00: 00 11-10 00:00 :00 No [id number] 50mg Take 1 tablet by mouth every 6 (six) hours as needed for Pain (scale 4-6). Indication s: chronic pain [facility] furosemide 40 mg tablet 2022-07 00:00: 00 01-30 00:00 :00 No [id number] 20mg Take 0.5 tablets by mouth every morning and evening. [facility] pregabalin 50 mg capsule 2022-07 00:00: 00 10-26 00:00 :00 No [id number] TAKE ONE (1) CAPSULE(S) BY MOUTH AT BEDTIME. [facility] potassium chloride 20 mEq tablet 2022-07 19:44: 40 06-22 00:00 :00 No 20meq Take 1 tablet by mouth in the morning. [facility] potassium chloride 20 mEq tablet 2022-07 10:32: 30 Yes 20meq Take 1 tablet by mouth in the morning. [facility] midodrine 5 mg tablet 2022-07 10:32: 20 06-22 00:00 :00 No TAKE 1 TABLET BY MOUTH 3 (THREE) TIMES DAILY FOR 90 DAYS. [facility] dapaglifloz in propanediol (FARXIGA) 10 mg tablet 2022-07 10:31: 57 06-22 00:00 :00 No 10mg Take 1 tablet by mouth in the morning. [facility] aspirin 81 mg chewable tablet 2022-07 10:31: 47 06-22 00:00 :00 No Chew 1 tablet every day by oral route. [facility] metOLazone 5 mg tablet 2022-07 10:31: 25 06-22 00:00 :00 No TAKE 1 TABLET BY MOUTH EVERY 3RD DAY [facility] NIFEdipine XL 60 mg 24 hr tablet 2022-07 10:31: 04 06-22 00:00 :00 No 60mg Take 1 tablet by mouth in the morning. [facility] pravastatin 40 mg tablet 2022-07 10:30: 06 Yes 40mg Take 1 tablet by mouth at bedtime. [facility] potassium chloride 20 mEq tablet 2022-07 00:00: 00 Yes 20meq Take 1 tablet by mouth every Tuesday, Tuesday and Tuesday. [facility] insulin aspart U-100 100 unit/mL (3 mL) injection 2022-07 08:08: 06 06-06 00:00 :00 No inject under the skin 3 (three) times daily before meals. [facility] pravastatin 40 mg tablet 2022-07 08:08: 04 Yes 40mg Take 1 tablet by mouth at bedtime. [facility] potassium chloride 20 mEq tablet 2022-07 08:08: 04 Yes 20meq Take 1 tablet by mouth in the morning. [facility] pantoprazol e 40 mg EC tablet 2022-07 08:08: 04 Yes 40mg Take 1 tablet by mouth in the morning. [facility] NIFEdipine XL 60 mg 24 hr tablet 2022-07 08:08: 04 Yes 60mg Take 1 tablet by mouth in the morning. [facility] montelukast 10 mg tablet 2022-07 08:08: 04 Yes 10mg Take 1 tablet by mouth at bedtime. [facility] midodrine 5 mg tablet 2022-07 08:08: 04 Yes TAKE 1 TABLET BY MOUTH 3 (THREE) TIMES DAILY FOR 90 DAYS. [facility] metOLazone 5 mg tablet 2022-07 08:08: 04 Yes TAKE 1 TABLET BY MOUTH EVERY 3RD DAY [facility] levothyroxi ne 25 mcg tablet 2022-07 08:08: 04 Yes 25ug Take 1 tablet by mouth every morning. [facility] hydrocortis one 1 % cream 2022-07 08:08: 04 Yes hydrocorti sone 1 % topical cream APPLY TO AFFECTED AREA 3 TIMES A DAY NEEDED FOR ITCHING [facility] fluticasone propionate 50 mcg/actuati on nasal spray 2022-07 2- 08:08: 04 Yes 2{spray } Use 2 Sprays in each nostril once daily as needed. [facility] fluticasone furoate 200 mcg/actuati on DsDv 2022-07 08:08: 04 Yes INHALE 1 PUFF BY MOUTH EVERY 24 HOURS [facility] diphenhydrA MINE (BANOPHEN) 25 mg capsule 2022-07 08:08: 04 Yes 25mg Take 1 capsule by mouth every 6 (six) hours as needed. [facility] dapaglifloz in propanediol (FARXIGA) 10 mg tablet 2022-07 08:08: 04 Yes 10mg Take 1 tablet by mouth in the morning. [facility] clotrimazol e 1 % topical cream 2022-07 08:08: 04 Yes Use as directed [facility] aspirin 81 mg chewable tablet 2022-07 08:08: 04 Yes Chew 1 tablet every day by oral route. [facility] ammonium lactate 12 % cream 2022-07 08:08: 04 Yes APPLY TO AFFECTED AREA TWICE A DAY [facility] albuterol (VENTOLIN HFA) 90 mcg/actuati on inhaler 2022-07 08:08: 04 Yes INHALE 2 PUFFS EVERY 6 (SIX) HOURS IF NEEDED FOR WHEEZING OR SHORTNESS OF BREATH FOR UP TO 10 DAYS [facility] latanoprost , PF, 0.005 % Drop 2022-07 08:08: 04 Yes 1[drp] Place 1 Drop in both eyes at bedtime. [facility] polyethylen e glycol 3350 (MIRALAX) 17 gram/dose powder 2022-07 08:08: 04 Yes 17g Take 17 g by mouth in the morning. [facility] fluticasone furoate 200 mcg/actuati on DsDv 2022-07 08:08: 04 Yes INHALE 1 PUFF BY MOUTH EVERY 24 HOURS [facility] venlafaxine XR 75 mg 24 hr capsule 2022-07 08:08: 03 Yes 75mg Take 1 capsule by mouth in the morning. [facility] levothyroxi ne 25 mcg tablet 2022-07 00:00: 00 Yes [id number] 25ug Take 1 tablet by mouth every morning. [facility] pantoprazol e 40 mg EC tablet 2022-07 00:00: 00 Yes [id number] 40mg Take 1 tablet by mouth in the morning. [facility] blood sugar diagnostic strip 2022-07 00:00: 00 Yes [id number] Use as directed to monitor blood sugar TID and PRN. [facility] blood sugar diagnostic (ACCU-CHEK PHILLIP PLUS TEST STRP) strip 2022-07 00:00: 00 Yes [id number] 1{strip } Take 1 Strip in the morning and 1 Strip at noon and 1 Strip in the evening. Use as directed [facility] cephALEXin (KEFLEX) 500 mg capsule 2022-07 00:00: 00 06-14 05:59 :00 No [id number] 500mg Take 1 capsule by mouth in the morning and 1 capsule in the evening. Do all this for 7 days. [facility] mupirocin 2 % ointment 2022-07 00:00: 00 06-09 05:59 :00 No [id number] Apply to area(s) 3 (three) times daily for 7 days. [facility] empaglifloz in (JARDIANCE) 10 mg 2022-07 00:00: 00 09-20 00:00 :00 No [id number] 10mg Take 1 tablet by mouth in the morning. [facility] insulin degludec 100 unit/mL Soln 2022-07 00:00: 00 09-27 00:00 :00 No [id number] 32U inject 32 Units under the skin in the morning. Morning [facility] insulin degludec (TRESIBA FLEXTOUCH U-100) 100 unit/mL (3 mL) InPn 2022-07 00:00: 00 09-27 00:00 :00 No [id number] 32U inject 32 Units under the skin every morning. [facility] insulin aspart U-100 (NOVOLOG FLEXPEN U-100 INSULIN) 100 unit/mL (3 mL) injection 2022-07 00:00: 00 09-04 00:00 :00 No [id number] TIDAC - 12 units at breakfast, 14 units at lunch, and 14 units at supper. If glucose > 150, sliding scale utilized. [facility] clopidogreL (PLAVIX) 75 mg tablet 2022-07 00:00: 00 Yes [id number] 75mg Take 1 tablet by mouth in the morning. [facility] insulin aspart U-100 100 unit/mL (3 mL) injection 2022-07 14:32: 26 Yes inject under the skin 3 (three) times daily before meals. [facility] traMADoL 100 mg Tab 2022-07 14:32: 26 Yes 50mg Take 50 mg by mouth at bedtime. [facility] semaglutide (OZEMPIC) 1 mg/dose (4 mg/3 mL) PnIj 2022-07 00:00: 00 10-26 00:00 :00 No [id number] 1mg inject 1 mg under the skin weekly. [facility] insulin aspart U-100 100 unit/mL (3 mL) injection 2022-07 11:25: 15 Yes inject under the skin 3 (three) times daily before meals. [facility] traMADoL 100 mg Tab 2022-07 11:25: 15 Yes 50mg Take 50 mg by mouth at bedtime. [facility] levothyroxi ne 25 mcg tablet 2022-07 00:00: 00 05-21 05:59 :00 No [id number] 25ug Take 1 tablet by mouth every morning for 30 days. [facility] pantoprazol e 40 mg EC tablet 2022-07 00:00: 00 05-21 05:59 :00 No [id number] 40mg Take 1 tablet by mouth in the morning for 30 days. [facility] polyethylen e glycol 3350 17 gram powder 2022-07 00:00: 00 05-21 05:59 :00 No [id number] 17g Take 1 Packet by mouth in the morning for 30 days. [facility] spironolact one 25 mg tablet 2022-07 00:00: 00 05-21 05:59 :00 No [id number] 25mg Take 1 tablet by mouth in the morning for 30 days. [facility] KCL 20 mEq tablet 2022-07 00:00: 00 05-21 05:59 :00 No [id number] 20meq Take 1 tablet by mouth in the morning for 30 days. [facility] empaglifloz in (JARDIANCE) tablet 10 mg 2022-07 20:15: 00 Yes 10mg 10 mg, Oral, DAILY, First dose on Tue04/19/23 at 1515, Until Discontinu ed, Routine
Is this a home medication ? No
Inpa tient ordering of this medication is not allowed unless the patient is maintained on this medication at home, and home supply is unavailabl e. Does this order meet the criteria for inpatient ordering? Yes [facility] insulin aspart U-100 100 unit/mL (3 mL) injection 2022-07 18:35: 41 Yes inject under the skin 3 (three) times daily before meals. [facility] traMADoL 100 mg Tab 2022-07 18:35: 41 Yes 50mg Take 50 mg by mouth at bedtime. [facility] acetaminoph en (TYLENOL) 325 mg Cap 2022-07 14:28: 08 04-19 00:00 :00 No Take by mouth as needed. [facility] ACCU-CHEK PHILLIP PLUS TEST STRP strip 2022-07 00:00: 00 06-06 00:00 :00 No USE TO TEST 3 TIMES DAILY. [facility] acetaminoph en 325 mg tablet 2022-07 00:00: 00 05-20 05:59 :00 No [id number] 650mg Take 2 tablets by mouth every 6 (six) hours as needed for Pain (scale 1-3) for up to 30 days. [facility] baclofen 10 mg tablet 2022-07 00:00: 00 05-20 05:59 :00 No [id number] 5mg Take 0.5 tablets by mouth 2 (two) times daily as needed for Pain (scale 7-10) for up to 30 days. [facility] pravastatin 80 mg tablet 2022-07 00:00: 00 05-20 05:59 :00 No [id number] 80mg Take 1 tablet by mouth at bedtime for 30 days. [facility] empaglifloz in 10 mg 2022-07 00:00: 00 05-20 05:59 :00 No [id number] 10mg Take 1 tablet by mouth in the morning for 30 days. [facility] nystatin (NYSTOP) 100,000 unit/gram powder 2022-07 00:00: 00 05-05 04:59 :00 No [id number] Apply to area(s) 2 (two) times daily for 30 doses. [facility] cloNIDine (CATAPRES) tablet 0.3 mg 2022-07 10:45: 00 04-18 09:54 :00 No .3mg 0.3 mg, Oral, ONCE, 1 dose, On 04/18/23 at 0545, Routine [facility] pravastatin (PRAVACHOL) tablet 80 mg 2022-07 02:00: 00 Yes 80mg 80 mg, Oral, QHS, First dose on Tue04/17/23 at 2100, Until Discontinu ed, Routine [facility] [facility] traMADoL (ULTRAM) tablet 50 mg 2022-07 19:03: 19 Yes 50mg 50 mg, Oral, Q6HPRN, Starting on 04/17/23 at 1403, Until Discontinu ed, Routine, Pain (scale 4-6), leg pain [facility] hydralAZINE (APRESOLINE ) injection 10 mg 2022-07 19:02: 48 Yes 10mg 10 mg, Slow IV Push, Q6HPRN, Starting on 04/17/23 at 1402, Until Discontinu ed, STAT, DBP=>100; SBP=>160 [facility] KCL (KLOR-CON M20) tablet 20 mEq 2022-0715 14:00: 00 Yes 20meq 20 mEq, Oral, DAILY, First dose on 04/17/23 at 0900, Until Discontinu ed, Routine [facility] hydralAZINE (APRESOLINE ) injection 5 mg 2022-0714 16:28: 19 04-17 19:03 :41 No 5mg 5 mg, Slow IV Push, Q6HPRN, Starting on 04/16/23 at 1128, Until [place] 04/17/23 at 1403, STAT, DBP=>100; SBP=>160 [facility] KCL (KLOR-CON M20) tablet 40 mEq 2022-07 16:00: 00 04-16 17:44 :00 No 40meq 40 mEq, Oral, ONCE, 1 dose, On 04/16/23 at 1100, Routine [facility] insulin glargine (LANTUS U-100) injection 20 Units 2022-07 02:00: 00 Yes 20U 20 Units, Subcutaneo us, QHS, First dose (after last modificati on) on Tue04/15/23 at 2100, Until Discontinu ed, Routine [facility] furosemide (LASIX) injection 20 mg 2022-07 01:00: 00 Yes 20mg 20 mg, Slow IV Push, Q12H, First dose on Tue04/15/23 at 2000, Until Discontinu ed, Routine [facility] metoclopram cory HCl (REGLAN) injection 10 mg 2022-07 17:30: 00 Yes 10mg 10 mg, Slow IV Push, Q6HPRN, Starting on [place] 04/14/23 at 1230, Until Discontinu ed, Routine, Nausea and Vomiting (N/V) [facility] furosemide (LASIX) tablet 20 mg 2022-07 0- 17:30: 00 04-16 00:34 :17 No 20mg 20 mg, Oral, QAM+PM, First dose on Devika 04/14/23 at 1230, Until Discontinu ed, Routine [facility] levothyroxi ne (SYNTHROID) tablet 25 mcg 2022-07 11:00: 00 Yes 25ug 25 mcg, Oral, QAM-0600, First dose on Tue04/14/23 at 0600, Until Discontinu ed, Routine [facility] pramipexole (MIRAPEX) tablet 0.75 mg 2022-07 06:00: 00 Yes .75mg 0.75 mg, Oral, QHS, First dose (after last modificati on) on Tue04/14/23 at 0100, Until Discontinu ed, Routine [facility] traZODone (DESYREL) tablet 50 mg 2022-07 02:00: 00 Yes 50mg 50 mg, Oral, QHS, First dose on Tue04/13/23 at 2100, Until Discontinu ed, Routine [facility] (UL[facility]AM) [facility] 50 mg 2022-07 02:00: 00 Yes 50mg 50 mg, Oral, QHS, First dose on Tue04/13/23 at 2100, Until Discontinu ed [facility] insulin glargine (LANTUS U-100) injection 30 Units 2022-07 02:00: 00 04-16 00:36 :09 No 30U 30 Units, Subcutaneo us, QHS, First dose on Tue04/13/23 at 2100, Until Discontinu ed, Routine [facility] cefTRIAXone (ROCEPHIN) 1,000 mg in NaCl 0.9% (NS) 100 mL MINI-BAG 2022-07 01:15: 00 04-19 01:44 :00 No 1000mg 1,000 mg, IV Piggyback, Q24H ABX, 6 doses, First dose on Tue04/13/23 at 2014, Last dose on Tue04/18/23 at 2014, Administer over 30 Minutes, 100 mL
Reas on for Anti-Infec tive: Documented Infection< br>Documen steph Infection Site: Urine
D uration of Therapy: 7 days [facility] apixaban (ELIQUIS) tablet 5 mg 2022-07 01:00: 00 Yes 5524 5mg 5 mg, Oral, BID, First dose on Tue04/13/23 at 2000, Until Discontinu ed, Routine
Indicatio ns: Non-Valvul ar Atrial Fibrillati on [facility] metoclopram cory HCl (REGLAN) injection 10 mg 2022-07 00:00: 00 04-14 17:18 :00 No 10mg 10 mg, Slow IV Push, Q6H, First dose on Tue04/13/23 at 1900, Until Discontinu ed, Routine [facility] proMETHazin e (PHENERGAN) 25 mg in NaCl 0.9% (NS) 50 mL IV piggyback 2022-07 19:42: 05 04-13 23:56 :36 No 25mg 25 mg, IV Piggyback, Q6HPRN, Starting on Tue04/13/23 at 1442, Until Tue04/13/23 at 1856, Routine, Nausea and Vomiting (N/V) [facility] Sliding Scale Insulin - Lispro (HumaLOG) 2022-07 17:00: 00 Yes Subcutaneo us, TID MEALS+HS, First dose on Tue04/13/23 at 1200, Until Discontinu ed, Routine [facility] vancomycin (VANCOCIN) 1,500 mg in NaCl 0.9% (NS) 500 mL VIAL-MATE IV piggyback 2022-07 15:00: 00 04-18 15:44 :00 No 15mg/kg 1,500 mg (rounded from 1,876.5 mg = 15 mg/kg ?125.1 kg), IV Piggyback, Q24H ABX, 6 doses, First dose on Tue04/13/23 at 1000, Last dose on Tue04/18/23 at 1000, Administer over 90 Minutes, 500 mL
Reas on for Anti-Infec tive: Documented Infection< br>Documen steph Infection Site: Skin / Soft Tissue
Duration of Therapy: 7 days [facility] glucagon (GLUCAGEN DIAGNOSTIC KIT) injection 1 mg 2022-07 14:02: 11 Yes 1mg 1 mg, Intramuscu lar, PRN, Starting on Tue04/13/23 at 0902, Until Discontinu ed, GI, Blood Glucose < or = 70 mg/dL and patient is NPO, unable to swallow or has mental changes. [facility] dextrose 50 % in water (D50W) injection 25 mL 2022-07 14:02: 11 Yes 25mL 25 mL, Slow IV Push, PRN, Starting on Tue04/13/23 at 0902, Until Discontinu ed, GI, Blood Glucose < or = 70 mg/dL and patient is NPO, unable to swallow or has mental status changes. [facility] spironolact one (ALDACTONE) tablet 25 mg 2022-07 14:00: 00 Yes 25mg 25 mg, Oral, DAILY, First dose on Tue04/13/23 at 0900, Until Discontinu ed, Routine [facility] polyethylen e glycol 3350 powder 17 g 2022-07 14:00: 00 Yes 17g 17 g, Oral, DAILY, First dose on Tue04/13/23 at 0900, Until Discontinu ed, Routine [facility] pantoprazol e (PROTONIX) EC tablet 40 mg 2022-07 14:00: 00 Yes 40mg 40 mg, Oral, DAILY, First dose on Tue04/13/23 at 0900, Until Discontinu ed, Routine [facility] escitalopra m oxalate (LEXAPRO) tablet 10 mg 2022-07 14:00: 00 Yes 10mg 10 mg, Oral, DAILY, First dose on Tue04/13/23 at 0900, Until Discontinu ed, Routine [facility] clopidogreL (PLAVIX) 75 mg tablet 75 mg 2022-07 14:00: 00 Yes 75mg 75 mg, Oral, DAILY, First dose on Tue04/13/23 at 0900, Until Discontinu ed, Routine [facility] baclofen (LIORESAL) tablet 5 mg 2022-07 14:00: 00 Yes 5mg 5 mg, Oral, Q12H, First dose on Tue04/13/23 at 0900, Until Discontinu ed, Routine [facility] furosemide (LASIX) tablet 40 mg 2022-07 14:00: 00 04-14 00:11 :24 No 40mg 40 mg, Oral, QAM+PM, First dose on Tue04/13/23 at 0900, Until Discontinu ed, Routine [facility] ondansetron (ZOFRAN (PF)) injection 4 mg 2022-07 13:45: 00 04-13 12:53 :00 No 4mg 4 mg, Slow IV Push, ONCE, On Tue04/13/23 at 0845, For 1 dose
Do ses of ondansetro n 16 mg and above need to be administer ed via IV piggyback. For Dose >=24mg ECG monitoring is advisable.
[facility] pregabalin (LYRICA) capsule 50 mg 2022-07 13:00: 00 Yes 50mg 50 mg, Oral, BID, First dose on Tue04/13/23 at 0800, Until Discontinu ed, Routine [facility] nystatin (NYSTOP) powder 2022-07 13:00: 00 Yes Topical, BID, First dose on Tue04/13/23 at 0800, Until Discontinu ed, Routine [facility] metoprolol tartrate (LOPRESSOR) tablet 12.5 mg 2022-07 13:00: 00 Yes 12.5mg 12.5 mg, Oral, BID, First dose on Tue04/13/23 at 0800, Until Discontinu ed, Routine [facility] FENTanyl PF (SUBLIMAZE (PF)) injection 12.5 mcg 2022-07 09:14: 51 Yes 12.5ug 12.5 mcg, Slow IV Push, Q6HPRN, Starting on Tue04/13/23 at 0414, Until Discontinu ed, Routine, Pain (scale 4-6), Pain (scale 7-10) [facility] acetaminoph en (TYLENOL) 325 mg Cap 2022-07 07:50: 16 Yes Take by mouth as needed. [facility] insulin aspart U-100 100 unit/mL (3 mL) injection 2022-07 07:50: 16 Yes inject under the skin 3 (three) times daily before meals. [facility] traMADoL 100 mg Tab 2022-07 07:50: 16 Yes 50mg Take 50 mg by mouth at bedtime. [facility] heparin (porcine) injection 5,000 Units 2022-07 03:00: 00 04-13 12:50 :00 No 5000U 5,000 Units, Subcutaneo us, Q8H, First dose on Tue04/12/23 at 2200, Until Discontinu ed, Routine [facility] acetaminoph en (TYLENOL) tablet 650 mg 2022-07 00:36: 27 Yes 650mg 650 mg, Oral, Q6HPRN, Starting on Tue04/12/23 at 1936, Until Discontinu ed, Routine, Pain (scale 1-3) [facility] furosemide (LASIX) injection 20 mg 2022-07 00:15: 00 04-13 00:29 :00 No 20mg 20 mg, IV Push, ONCE, 1 dose, On Tue04/12/23 at 1915, [facility] furosemide (LASIX) injection 20 mg 2022-07 00:00: 00 04-13 00:06 :00 No 20mg 20 mg, IV Push, ONCE, 1 dose, On Tue04/12/23 at 1900, [facility] acetaminoph en (TYLENOL) tablet 1,000 mg 2022-07 23:00: 00 04-13 00:06 :00 No 1000mg 1,000 mg, Oral, ONCE, 1 dose, On Tue04/12/23 at 1800, [facility] cefTRIAXone (ROCEPHIN) 1,000 mg in NaCl 0.9% (NS) 100 mL MINI-BAG 2022-07 22:15: 00 04-12 23:42 :00 No 1000mg 1,000 mg, IV Piggyback, ONCE, 1 dose, On Tue04/12/23 at 1715, Administer over 30 Minutes, 100 mL
Reas on for Anti-Infec tive: Empiric Therapy for Suspected Infection< br>Empiric Therapy Site: Urine
D uration of therapy: 72 hours [facility] NaCl 0.9% (NS) bolus infusion 500 mL 2022-07 21:45: 00 04-12 23:42 :00 No 500mL at 999 mL/hr, 500 mL, IV Infusion, ONCE, 1 dose, On Tue04/12/23 at 1645, STAT [facility] latanoprost (XALATAN) 0.005 % ophthalmic drops 2022-07 21:02: 01 04-12 00:00 :00 No 1[drp] Place 1 Drop in both eyes every evening. [facility] ramipriL 2.5 mg capsule 2022-07 00:00: 00 06-22 00:00 :00 No 2.5mg Take 1 capsule by mouth in the morning. [facility] valsartan (DIOVAN) tablet 40 mg 03-29 01:00: 00 Yes 40mg 40 mg, Oral, BID, First dose (after last modificati on) on Tue03/28/23 at 2000, Until Discontinu ed, Routine [facility] clopidogreL 75 mg tablet 03-29 00:00: 00 04-19 00:00 :00 No [id number] 75mg Take 1 tablet by mouth in the morning. [facility] carvediloL (COREG) tablet 6.25 mg 03-28 22:00: 00 Yes 6.25mg 6.25 mg, Oral, BID MEALS, First dose on Tue03/28/23 at 1700, Until Discontinu ed, Routine [facility] latanoprost (XALATAN) 0.005 % ophthalmic drops 03-28 14:22: 53 Yes 1[drp] Place 1 Drop in both eyes every evening. [facility] acetaminoph en (TYLENOL) 325 mg Cap 03-28 14:22: 53 Yes Take by mouth as needed. [facility] furosemide (LASIX) tablet 40 mg 03-28 14:00: 00 Yes 40mg 40 mg, Oral, QAM+PM, First dose (after last modificati on) on Tue03/28/23 at 0900, Until Discontinu ed, Routine [facility] valsartan (DIOVAN) tablet 20 mg 03-28 14:00: 00 03-28 15:52 :50 No 20mg 20 mg, Oral, BID, First dose on Tue03/28/23 at 0900, Until Discontinu ed, Routine [facility] oxymetazoli ne (OXYMETAZOL INE HCL) 0.05 % nasal spray 1 [place] 03-28 13:00: 00 03-30 12:59 :00 No 1{spray } 1 [place], Nasal, BID, 4 doses, First dose on Tue03/28/23 at 0800, Last dose on Tue03/29/23 at 2000, Routine [facility] metoprolol tartrate (LOPRESSOR) tablet 12.5 mg 03-28 12:00: 00 03-28 15:49 :19 No 12.5mg 12.5 mg, Oral, BID, First dose on Tue03/28/23 at 0700, Until Discontinu ed, Routine [facility] aspirin (ASPIRIN LOW DOSE) 81 mg EC tablet 03-28 11:45: 42 03-28 00:00 :00 No 81mg Take 1 tablet by mouth in the morning. [facility] traMADoL 50 mg tablet 03-28 00:00: 00 04-05 04:59 :00 No [id number] 50mg Take 1 tablet by mouth every 6 (six) hours as needed for Pain (scale 7-10) for up to 7 days. Indication s: acute pain [facility] apixaban (ELIQUIS) tablet 5 mg 03-27 19:15: 00 Yes 5mg 5 mg, Oral, BID, First dose on Tue03/27/23 at 1415, Until Discontinu ed, Routine
Indicatio ns: DVT/PE [facility] acetaminoph en (TYLENOL) tablet 650 mg 03-27 13:05: 12 Yes 650mg 650 mg, Oral, Q6HPRN, Starting on Tue03/27/23 at 0805, Until Discontinu ed, Routine, Pain (scale 1-3) [facility] glycopyrrol ate (ROBINUL) injection 0.2 mg 03-26 19:07: 05 Yes .2mg 0.2 mg, Slow IV Push, Q15MIN PRN, Starting on 03/26/23 at 1407, Until Discontinu ed, Routine, if patient is symptomati c (headache / dizziness / diaphoreti c) and bradycardi a HR <40 for more than 2 [facility] ipratropium -albuteroL (DUONEB) 0.5 mg-3 mg(2.5 mg base)/3 mL nebulizer solution 3 mL 03-26 17:00: 00 Yes 3mL 3 mL, Inhalation , QID, First dose on Tue03/26/23 at 1200, Until Discontinu ed, [facility]ine [facility] guaiFENesin (FENESIN IR) tablet 400 mg 03-26 17:00: 00 Yes 400mg 400 mg, Oral, Q4H, First dose on Tue03/26/23 at 1200, Until Discontinu ed, Routine [facility] acetylcyste ine (MUCOMYST) 200 mg/mL (20 %) inhalation solution 200 mg 03-26 17:00: 00 03-30 16:59 :00 No 1mL 200 mg (1 mL), Inhalation , QID, 16 doses, First dose on Tue03/26/23 at 1200, Last dose on Tue03/30/23 at 0800, Routine [facility] loratadine (CLARITIN) tablet 10 mg 03-26 16:15: 00 Yes 10mg 10 mg, Oral, DAILY, First dose on Tue03/26/23 at 1115, Until Discontinu ed, Routine [facility] albuterol (VENTOLIN HFA) 90 mcg/actuati on inhaler 03-26 14:55: 38 Yes 2{puff} INHALE 2 PUFFS EVERY 6 (SIX) HOURS IF NEEDED FOR WHEEZING OR SHORTNESS OF BREATH FOR UP TO 10 DAYS [facility] clopidogreL (PLAVIX) 75 mg tablet 75 mg 03-26 14:00: 00 Yes 75mg 75 mg, Oral, DAILY, First dose on 03/26/23 at 0900, Until Discontinu ed, Routine [facility] spironolact one (ALDACTONE) tablet 25 mg 03-26 14:00: 00 Yes 25mg 25 mg, Oral, DAILY, First dose (after last modificati on) on 03/26/23 at 0900, Until Discontinu ed, Routine [facility] furosemide (LASIX) tablet 40 mg 03-26 14:00: 00 03-27 11:50 :26 No 40mg 40 mg, Oral, QAM+PM, First dose on 03/26/23 at 0900, Until Discontinu ed, Routine [facility] atropine injection 1 mg 03-26 07:05: 00 03-26 07:04 :00 No 1mg 1 mg, IV Push, ONCE, 1 dose, On Tue03/26/23 at 0215, Routine [facility] atropine injection 1 mg 03-26 04:30: 00 03-26 04:22 :00 No 1mg 1 mg, IV Push, ONCE, 1 dose, On Tue03/25/23 at 2330, Routine [facility] FENTanyl PF (SUBLIMAZE (PF)) injection 25 mcg 03-25 22:17: 21 Yes 25ug 25 mcg, Slow IV Push, Q4HPRN, Starting on Tue03/25/23 at 1717, Until Discontinu ed, Routine, Pain (scale 7-10) [facility] lactated ringers IV infusion 500 mL 03-25 21:15: 00 03-25 20:23 :00 No 500mL at 999 mL/hr, 500 mL, Intravenou s, ONCE, 1 dose, On Tue03/25/23 at 1615, Routine [facility] acetaminoph en ADULT (OFIRMEV) injection 1,000 mg 03-25 20:56: 19 03-26 20:55 :19 No 1000mg 1,000 mg, IV Infusion, at 400 mL/hr Administer over 15 Minutes, Q8HPRN, Starting on Tue03/25/23 at 1556, Until Tue03/26/23 at 1555, Routine, Pain (scale 1-3)
In dication: Perioperat preston Patient [facility] ondansetron (ZOFRAN (PF)) injection 4 mg 03-25 20:32: 33 Yes 4mg 4 mg, Slow IV Push, Q6HPRN, Nausea and Vomiting (N/V), Starting on Tue03/25/23 at 1532
Do ses of ondansetro n 16 mg and above need to be administer ed via IV piggyback. For Dose >=24mg ECG monitoring is advisable.
[facility] clopidogreL (PLAVIX) 300 mg tablet 300 mg 03-25 19:35: 00 03-25 23:27 :00 No 300mg 300 mg, Oral, ONCE, 1 dose, On Tue03/25/23 at 1445, Routine [facility] sugammadex (BRIDION) injection 03-25 19:27: 00 03-25 19:57 :36 No IV Push, ONCE INTRA PROCEDURE, Starting on Tue03/25/23 at 1427, Until Tue03/25/23 at 1457, Routine, Intra-op [facility] ondansetron (ZOFRAN (PF)) injection 03-25 19:27: 00 03-25 19:57 :36 No Slow IV Push, ONCE INTRA PROCEDURE, Starting on Tue03/25/23 at 1427, Until Tue03/25/23 at 1457, Routine, Intra-op [facility] dexamethaso ne (DECADRON PHOSPHATE) injection 03-25 19:27: 00 03-25 19:57 :36 No IV Push, ONCE INTRA PROCEDURE, Starting on Tue03/25/23 at 1427, Until Tue03/25/23 at 1457, Routine, Intra-op [facility] iodixanoL (VISIPAQUE 270-150 mL) injection 03-25 18:39: 00 03-25 20:07 :46 No PRN, Starting on Tue03/25/23 at 1339, Until Tue03/25/23 at 1507, Routine, Intra-op [facility] heparin 10,000 units in NS 1000 mL for vascular 03-25 18:39: 00 03-25 20:07 :46 No PRN, Starting on Tue03/25/23 at 1339, Intra-op [facility] glycopyrrol ate (ROBINUL) injection 03-25 18:28: 00 03-25 19:57 :36 No Intravenou s, ONCE INTRA PROCEDURE, Starting on Tue03/25/23 at 1328, Until Tue03/25/23 at 1457, Routine, Intra-op [facility] heparin (1,000 unit/mL, 10 mL vial) 03-25 18:23: 00 03-25 19:57 :36 No ONCE INTRA PROCEDURE, Starting on Tue03/25/23 at 1323, Until Tue03/25/23 at 1457, Routine, Intra-op [facility] esmoloL (BREVIBLOC) injection 03-25 17:50: 00 03-25 19:57 :36 No Slow IV Push, ONCE INTRA PROCEDURE, Starting on Tue03/25/23 at 1250, Until Tue03/25/23 at 1457, Routine, Intra-op [facility] rocuronium (ZEMURON) injection 03-25 17:46: 00 03-25 19:57 :36 No IV Push, ONCE INTRA PROCEDURE, Starting on Tue03/25/23 at 1246, Until Tue03/25/23 at 1457, Routine, Intra-op [facility] propofoL IV infusion 03-25 17:46: 00 03-25 19:57 :36 No IV Infusion, ONCE INTRA PROCEDURE, Starting on Tue03/25/23 at 1246, Until Tue03/25/23 at 1457, Routine, Intra-op [facility] lidocaine 1% (XYLOCAINE) 100 mg/10 mL (1 %) injection 03-25 17:46: 00 03-25 19:57 :36 No Slow IV Push, ONCE INTRA PROCEDURE, Starting on Tue03/25/23 at 1246, Until Tue03/25/23 at 1457, Routine, Intra-op [facility] ePHEDrine 25 mg/5 mL (5 mg/mL) syringe 03-25 17:44: 00 03-25 19:57 :36 No Slow IV Push, ONCE INTRA PROCEDURE, Starting on Tue03/25/23 at 1244, Until Tue03/25/23 at 145, Routine, Intra-op [facility] lactated ringers IV infusion 03-25 17:35: 00 03-25 19:57 :36 No IV Infusion, CONTINUOUS PRN, Starting on Tue03/25/23 at 1235, Until Tue03/25/23 at 1457, Routine, Intra-op [facility] FENTanyl PF (SUBLIMAZE (PF)) injection 03-25 17:31: 00 03-25 19:57 :36 No Intravenou s, ONCE INTRA PROCEDURE, Starting on Tue03/25/23 at 1231, Until Tue03/25/23 at 1457, Routine, Intra-op [facility] insulin glargine (LANTUS U-100) injection 32 Units 03-25 14:00: 00 Yes 32U 32 Units, Subcutaneo us, DAILY, First dose (after last modificati on) on Tue03/25/23 at 0900, Until Discontinu ed, Routine [facility] hydralAZINE (APRESOLINE ) injection 10 mg 03-25 13:09: 53 Yes 10mg 10 mg, Slow IV Push, Q4HPRN, Starting on Tue03/25/23 at 0809, Until Discontinu ed, DBP=>100; SBP=>160 [facility] KCL (KLOR-CON M20) tablet 20 mEq 03-25 12:30: 00 03-25 12:41 :00 No 20meq 20 mEq, Oral, ONCE, 1 dose, On Tue03/25/23 at 0730, Routine [facility] acetaminoph en (TYLENOL) 325 mg Cap 03-25 12:26: 56 Yes Take by mouth as needed. [facility] valsartan (DIOVAN) tablet 20 mg 03-25 01:00: 00 03-25 01:11 :00 No 20mg 20 mg, Oral, ONCE, 1 dose, On Tue03/24/23 at 2000, Routine [facility] insulin lispro (human) (HumaLOG U-100) injection 5 Units 03-24 22:00: 00 Yes 5U 5 Units, Subcutaneo us, TID MEALS, First dose on Tue03/24/23 at 1700, Until Discontinu ed, Routine [facility] furosemide (LASIX) tablet 40 mg 03-24 22:00: 00 03-24 22:24 :00 No 40mg 40 mg, Oral, ONCE, 1 dose, On Tue03/24/23 at 1700, Routine [facility] heparin 1000 unit/mL injection Soln 5,000 Units 03-24 14:45: 00 03-24 16:10 :00 No 5000U 5,000 Units, IV Push, ONCE, 1 dose, On Tue03/24/23 at 0945, Routine [facility] heparin 25,000 Units/250 mL in NS 03-24 14:32: 28 03-27 19:11 :03 No 0U/h 0-3,050 Units/hr (0-30.5 mL/hr), IV Infusion, TITRATE, Parameters in Admin. Instr., Starting on Tue03/24/23 at 0932
In itiate dosing:&nb sp; & nbsp;&nbsp ; -Patient 73 kg or under: 1,300 Units/hr (Calculate d dose at 18 units/kg/h r) &n bsp; &nbs p; -Patient over 73 k,300 units/hr&n bsp;DO NOT Exceed the MAXIMUM 1,300 units/hr for initiation of heparin drip.&nbsp ; CAU TION - If LMWH given in ER, AVOID bolus and start next dose/drip 12 hrs after ER dosage.&nb sp; M ust program rate using programmab le infusion pump.&nbsp ; Angela ck with the ordering provider first prior to any administra tion should the patient be on existing/a dditional anticoagul ant therapy. Rang e, Dosing and Testing: &nbs p;DO NOT ADJUST INITIAL BOLUS OR INITIAL INFUSION RATE.&nbsp ; _ &nb sp;FOR [facility], [facility], AND [facility] ONLY &nbs p; - aPTT < 35: & nbsp;Bolus 5000 units, increase rate 300 units/hr&n bsp; - aPTT 35-44:&nbs p; [place] jw 3000 units, increase rate 200 units/hr&n bsp; - aPTT 45-54:&nbs p; In crease rate 100 units/hr&n bsp; - aPTT 55-85:&nbs p; NO CHANGE&nbs p; - aPTT 86-95:&nbs p; De crease rate 100 units/hr&n bsp; - aPTT 96-120:&nb sp; H old 30 minutes, decrease rate 150 units/hr&n bsp; - aPTT > 120: Hold 60 minutes, decrease rate 200 units/hr&n bsp; Check aPTT 6 hours after initiation , then Q6H after every change, aPTT Q12H once therapeuti c levels are reached.&n bsp; &nbs p; __ &n bsp;FOR [facility] ONLY - aPTT < 40: & nbsp;Bolus 5000 units, increase rate 300 units/hr&n bsp; - aPTT 40-49:&nbs p; [place] jw 3000 units, increase rate 200 units/hr&n bsp; - aPTT 50-59:&nbs p;&nbs p;Increase rate 100 units/hr&n bsp; - aPTT 60-85:&nbs p; NO CHANGE&nbs p; - aPTT 86-95:&nbs p; De crease rate 100 units/hr&n bsp; - aPTT 96-120:&nb sp; H old 30 minutes, decrease rate 150 units/hr&n bsp; - aPTT > 120: Hold 60 minutes, decrease rate 200 units/hr&n bsp; Check aPTT 6 hours after initiation , then Q6H after every change, aPTT Q12H once therapeuti c levels are reached.<b r> [facility] heparin (1,000 unit/mL, 10 mL vial) 03-24 14:32: 23 03-27 19:11 :02 No 3000U FOR REBOLUSING , Starting on Devika 03/24/23 at 0932, Until 03/27/23 at 1411, Routine
Dosing based on aPTT testing parameters (refer to continuous heparin drip order)
[facility] insulin glargine (LANTUS U-100) injection 26 Units 03-24 14:00: 00 03-24 19:22 :18 No 26U 26 Units, Subcutaneo us, DAILY, First dose (after last modificati on) on Tue03/24/23 at 0900, Until Discontinu ed, Routine [facility] benzocaine- menthoL (CEPACOL SORE THROAT (JYOTSNA-MEN)) lozenge 1 Lozenge 03-24 02:04: 13 Yes 1{lozen ge} 1 Lozenge, Oral, Q4HPRN, Starting on Tue03/23/23 at 2104, Until Discontinu ed, Routine, Sore throat [facility] valsartan (DIOVAN) tablet 20 mg 03-24 01:00: 00 03-24 19:26 :33 No 20mg 20 mg, Oral, BID, First dose on Tue03/23/23 at 2000, Until Discontinu ed, Routine [facility] Sliding Scale Insulin - Lispro (HumaLOG) 03-23 22:00: 00 Yes Subcutaneo us, TID MEALS+HS, First dose (after last modificati on) on Tue03/23/23 at 1700, Until Discontinu ed, Routine [facility] carvediloL (COREG) tablet 12.5 mg 03-23 22:00: 00 03-26 19:08 :16 No 12.5mg 12.5 mg, Oral, BID MEALS, First dose on Tue03/23/23 at 1700, Until Discontinu ed, Routine [facility] phenoL (SORE THROAT (PHENOL)) 1.4 % spray bottle 1 [place] 03-22 20:03: 05 Yes 1{spray } 1 [place], Oral, PRN, Starting on Tue03/22/23 at 1503, Until Discontinu ed, Routine, Sore throat [facility] methocarbam oL (ROBAXIN) tablet 500 mg 03-22 19:36: 07 03-28 21:22 :55 No 500mg 500 mg, Oral, QIDPRN, Starting on Tue03/22/23 at 1436, Until Tue03/28/23 at 1622, Routine, Muscle Spasms [facility] acetaminoph en (TYLENOL) tablet 650 mg 03-22 19:35: 12 Yes 650mg 650 mg, Oral, Q6HPRN, Starting on Tue03/22/23 at 1435, Until Discontinu ed, Routine, Pain (scale 1-3) [facility] Sliding Scale Insulin - Lispro (HumaLOG) 03-22 17:00: 00 Yes Subcutaneo us, TID MEALS+HS, First dose (after last modificati on) on Tue03/22/23 at 1200, Until Discontinu ed, Routine [facility] acetaminoph en (TYLENOL) 325 mg Cap 03-22 14:07: 39 Yes Take by mouth as needed. [facility] insulin glargine (LANTUS U-100) injection 22 Units 03-22 14:00: 00 Yes 22U 22 Units, Subcutaneo us, DAILY, First dose (after last modificati on) on Tue03/22/23 at 0900, Until Discontinu ed, Routine [facility] spironolact one (ALDACTONE) tablet 25 mg 03-22 14:00: 00 Yes 25mg 25 mg, Oral, DAILY, First dose on Tue03/22/23 at 0900, Until Discontinu ed, Routine [facility] polyethylen e glycol 3350 powder 17 g 03-22 14:00: 00 03-28 21:22 :55 No 17g 17 g, Oral, DAILY, First dose on Tue03/22/23 at 0900, Until Discontinu ed, Routine [facility] pantoprazol e (PROTONIX) EC tablet 40 mg 03-22 14:00: 00 03-28 21:22 :55 No 40mg 40 mg, Oral, DAILY, First dose on Tue03/22/23 at 0900, Until Discontinu ed, Routine [facility] escitalopra m oxalate (LEXAPRO) tablet 10 mg 03-22 14:00: 00 03-28 21:22 :55 No 10mg 10 mg, Oral, DAILY, First dose on Tue03/22/23 at 0900, Until Discontinu ed, [facility] 81 mg 03-22 14:00: 00 03-28 21:22 :55 No 81mg 81 mg, Oral, DAILY, First dose on Tue03/22/23 at 0900, Until Discontinu ed, Routine [facility] furosemide (LASIX) injection 20 mg 03-22 14:00: 00 03-22 15:11 :00 No 20mg 20 mg, Slow IV Push, ONCE, 1 dose, On Tue03/22/23 at 0900, Routine [facility] metoprolol tartrate (LOPRESSOR) tablet 25 mg 03-22 13:15: 00 Yes 25mg 25 mg, Oral, BID, First dose (after last modificati on) on Tue03/22/23 at 0815, Until Discontinu ed, Routine [facility] calcium gluconate 2 g in NaCl 100 mL (ISO-OSM) RTU IV infusion 2 g 03-22 11:30: 00 03-22 11:19 :00 No 2g 2 g, IV Infusion, at 200 mL/hr Administer over 30 Minutes, ONCE, 1 dose, On Tue03/22/23 at 0630, Routine [facility] levothyroxi ne (SYNTHROID) tablet 25 mcg 03-22 11:00: 00 03-28 21:22 :55 No 25ug 25 mcg, Oral, QAM-0600, First dose on Tue03/22/23 at 0600, Until Discontinu ed, Routine [facility] glycopyrrol ate (ROBINUL) injection 0.4 mg 03-22 05:42: 13 Yes .4mg 0.4 mg, Slow IV Push, PRN - SEE INSTRUCTIO NS, Starting on Tue03/22/23 at 0042, Until Discontinu ed, Routine, HR < 45 [facility] glycopyrrol ate (ROBINUL) injection 0.2 mg 03-22 04:00: 23 03-22 05:30 :39 No .2mg 0.2 mg, Slow IV Push, PRN - SEE INSTRUCTIO NS, Starting on Tue03/21/23 at 2300, Until Tue03/22/23 at 0030, Routine, HR < 50 [facility] pravastatin (PRAVACHOL) tablet 80 mg 03-22 02:00: 00 03-28 21:22 :55 No 80mg 80 mg, Oral, QHS, First dose on Tue03/21/23 at 2100, Until Discontinu ed, Routine [facility] pramipexole (MIRAPEX) tablet 0.75 mg 03-22 02:00: 00 03-28 21:22 :55 No .75mg 0.75 mg, Oral, QHS, First dose on Tue03/21/23 at 2100, Until Discontinu ed, Routine [facility] traZODone (DESYREL) tablet 50 mg 03-22 02:00: 00 03-28 21:22 :55 No 50mg 50 mg, Oral, QHS, First dose on Tue03/21/23 at 2100, Until Discontinu ed, Routine [facility] pregabalin (LYRICA) capsule 50 mg 03-22 02:00: 00 03-28 21:22 :55 No 50mg 50 mg, Oral, QHS, First dose on Tue03/21/23 at 2100, Until Discontinu ed, Routine [facility] apixaban (ELIQUIS) tablet 5 mg 03-22 01:00: 00 Yes [id number] 5mg 5 mg, Oral, BID, First dose on Tue03/21/23 at 1999, Until Discontinu ed, Routine
Indicatio ns: DVT/PE [facility] ferrous sulfate tablet 325 mg 03-22 01:00: 00 03-28 21:22 :55 No 325mg 325 mg, Oral, QMON/TUE/F RI AT 1999, First dose on Tue03/21/23 at 1999, Until Discontinu ed, Routine [facility] Sliding Scale Insulin - Lispro (HumaLOG) 03-22 01:00: 00 03-22 12:12 :03 No Subcutaneo us, Q2H, First dose (after last modificati on) on Tue03/21/23 at 1999, Until Discontinu ed, Routine [facility] acetaminoph en ADULT (OFIRMEV) injection 1,000 mg 03-22 01:00: 00 03-22 15:32 :00 No 1000mg 1,000 mg, IV Infusion, at 400 mL/hr Administer over 15 Minutes, Q12H, 2 doses, First dose on Tue03/21/23 at 1999, Last dose on Tue03/22/23 at 0800, Routine
Indicatio n: Perioperat preston Patient [facility] metoprolol tartrate (LOPRESSOR) tablet 12.5 mg 03-22 01:00: 00 03-22 13:13 :52 No 12.5mg 12.5 mg, Oral, BID, First dose on Tue03/21/23 at 1999, Until Discontinu ed, Routine [facility] FENTanyl PF (SUBLIMAZE (PF)) injection 25 mcg 03-21 23:01: 04 03-22 19:36 :17 No 25ug 25 mcg, Slow IV Push, Q30MIN PRN, Starting on Tue03/21/23 at 1801, Until Tue03/22/23 at 1436, Routine, Pain (scale 7-10) [facility] labetaloL (NORMODYNE) injection 10 mg 03-21 22:44: 16 03-28 21:22 :55 No 10mg 10 mg, Slow IV Push, Q15MIN PRN, 4 doses, Starting on Tue03/21/23 at 1744, Until Tue03/28/23 at 1622, Routine, SBP > 160 [facility] furosemide (LASIX) tablet 40 mg 03-21 22:00: 00 Yes 40mg 40 mg, Oral, QAM+PM, First dose on Tue03/21/23 at 1700, Until Discontinu ed, Routine [facility] Sliding Scale Insulin - Lispro (HumaLOG) 03-21 22:00: 00 03-22 00:43 :44 No Subcutaneo us, TID MEALS+HS, First dose on Tue03/21/23 at 1700, Until Discontinu ed, Routine [facility] insulin regular human (HUMULIN R) injection 5 Units 03-21 22:00: 00 03-21 21:20 :00 No 5U 5 Units, IV Push, ONCE, 1 dose, On Tue03/21/23 at 1700, Routine
Indicatio n for insulin: Hyperglyce hermelindo [facility] dextrose 10% (D10W) bolus infusion 250 mL 03-21 21:34: 05 03-28 21:22 :55 No 250mL 250 mL, IV Infusion, PRN - SEE INSTRUCTIO NS, Administer over 60 Minutes, Other, If blood glucose is < or = 70 mg/dL and patient is unable to swallow or has mental status changes, Starting on Tue03/21/23 at 1634
If blood glucose is < or = 70 mg/dL and patient is unable to swallow or has mental status changes (Give glucagon order if patient needs fluid restrictio n): IF IV access available: Dextrose 10%. 1. 125 mL (? bag) of D10W IV infusion - equivalent to 12.5 g dextrose 2. Blood glucose - draw blood glucose 15 minutes after D10W Administra tion. 3. If blood glucose is < 80 mg/dL, repeat.
[facility] glucagon (GLUCAGEN DIAGNOSTIC KIT) injection 1 mg 03-21 21:34: 02 03-28 21:22 :55 No 1mg 1 mg, Intramuscu lar, PRN, Starting on Tue03/21/23 at 1634, Until Tue03/28/23 at 1622, GI, Blood Glucose < or = 70 mg/dL and patient is NPO, unable to swallow or has mental changes. [facility] dextrose 10% (D10W) bolus infusion 250 mL 2023-0 9-18 20:48: 40 03-28 21:22 :55 No 250mL 250 mL, IV Infusion, PRN - SEE INSTRUCTIO NS, Administer over 60 Minutes, Other, If blood glucose is < or = 70 mg/dL and patient is unable to swallow or has mental status changes, Starting on Tue03/21/23 at 1548
If blood glucose is < or = 70 mg/dL and patient is unable to swallow or has mental status changes (Give glucagon order if patient needs fluid restrictio n): IF IV access available: Dextrose 10%. 1. 125 mL (? bag) of D10W IV infusion - equivalent to 12.5 g dextrose 2. Blood glucose - draw blood glucose 15 minutes after D10W Administra tion. 3. If blood glucose is < 80 mg/dL, repeat.
[facility] glucagon (GLUCAGEN DIAGNOSTIC KIT) injection 1 mg 03-21 20:48: 37 03-28 21:22 :55 No 1mg 1 mg, Intramuscu lar, PRN, Starting on Tue03/21/23 at 1548, Until Tue03/28/23 at 1622, GI, Blood Glucose < or = 70 mg/dL and patient is NPO, unable to swallow or has mental changes. [facility] glucagon (GLUCAGEN DIAGNOSTIC KIT) injection 1 mg 03-21 20:26: 10 03-28 21:22 :55 No 1mg 1 mg, Intramuscu lar, PRN, Starting on Tue03/21/23 at 1526, Until Tue03/28/23 at 1622, GI, Blood Glucose < or = 70 mg/dL and patient is NPO, unable to swallow or has mental changes. [facility] benzonatate (TESSALON PERLES) capsule 100 mg 03-21 20:24: 06 03-28 21:22 :55 No 100mg 100 mg, Oral, Q8HPRN, Starting on Tue03/21/23 at 1524, Until Tue03/28/23 at 1622, Routine, Cough [facility] lactated ringers IV infusion 1,000 mL 03-21 20:00: 00 03-22 13:47 :44 No 1000mL at 75 mL/hr, 1,000 mL, IV Infusion, CONTINUOUS , Starting on Tue03/21/23 at 1500, Until Tue03/22/23 at 0847, Routine, PACU [facility] proMETHazin e (PHENERGAN) 12.5 mg in NS 50 mL IV piggyback (CNR) 03-21 19:45: 13 Yes 12.5mg 12.5 mg, IV Piggyback, at 200 mL/hr Administer over 15 Minutes, PRN, 1 dose, Starting on Tue03/21/23 at 1445, Until Discontinu ed, Routine, Nausea and Vomiting (N/V), PACU [facility] iodixanoL (VISIPAQUE 270-150 mL) injection 03-21 19:17: 00 03-21 20:43 :02 No PRN, Starting on Tue03/21/23 at 1417, Until Tue03/21/23 at 1543, Routine, Intra-op [facility] sodium chloride 0.9 % irrigation solution 03-21 17:13: 00 03-21 20:43 :02 No PRN, Starting on Tue03/21/23 at 1213, Until Tue03/21/23 at 1543, Intra-op [facility] heparin 10,000 units in NS 1000 mL for vascular 03-21 17:13: 00 03-21 20:43 :02 No PRN, Starting on Tue03/21/23 at 1213, Intra-op [facility] aspirin (ASPIRIN LOW DOSE) 81 mg EC tablet 03-21 15:27: 18 Yes 81mg Take 1 tablet by mouth in the morning. [facility] latanoprost (XALATAN) 0.005 % ophthalmic drops 03-21 15:27: 18 Yes 1[drp] Place 1 Drop in both eyes every evening. [facility] latanoprost (XALATAN) 0.005 % ophthalmic drops 03-10 16:22: 15 Yes 1[drp] Place 1 Drop in both eyes every evening. [facility] aspirin (ASPIRIN LOW DOSE) 81 mg EC tablet 03-08 16:23: 30 Yes 81mg Take 1 tablet by mouth in the morning. [facility] traMADoL 50 mg tablet 03-08 00:00: 00 03-28 00:00 :00 No [id number] TAKE ONE (1) TABLET(S) BY MOUTH EVERY AT BEDTIME NEEDED FOR PAIN. Indication s: chronic pain [facility] PREGABALIN 50 mg capsule 03-02 00:00: 00 06-23 00:00 :00 No [id number] TAKE ONE (1) CAPSULE(S) BY MOUTH AT BEDTIME. [facility] TRAMADOL 50 mg tablet 03-02 00:00: 00 03-08 00:00 :00 No [id number] TAKE ONE (1) TABLET(S) BY MOUTH EVERY SIX HOURS NEEDED FOR PAIN. [facility] traZODone (DESYREL) tablet 50 mg 02-22 02:00: 00 Yes 50mg 50 mg, Oral, QHS, First dose on Tue02/21/23 at 2100, Until Discontinu ed, Routine [facility] melatonin (MELATIN) tablet 3 mg 02-22 02:00: 00 Yes 3mg 3 mg, Oral, QHS, First dose on Tue02/21/23 at 2100, Until Discontinu ed, Routine [facility] ferrous sulfate tablet 325 mg 02-22 01:00: 00 Yes 325mg 325 mg, Oral, QMON/TUE/ RI AT 2000, First dose on Tue02/21/23 at 2000, Until Discontinu ed, Routine [facility] aspirin (ASPIRIN LOW DOSE) 81 mg EC tablet 02-21 19:01: 07 Yes 81mg Take 1 tablet by mouth in the morning. [facility] latanoprost (XALATAN) 0.005 % ophthalmic drops 02-21 19:01: 07 Yes 1[drp] Place 1 Drop in both eyes every evening. [facility] tramadol HCl (TRAMADOL ORAL) 02-21 17:00: 48 02-21 00:00 :00 No Take by mouth. [facility] sulfur hexafluorid e microsphr (LUMASON) injection 5 mL 02-21 16:15: 00 02-21 16:15 :00 No [id number] 5mL 5 mL, Intravenou s, ONCE, 1 dose, On Tue02/21/23 at 1115, Routine
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 Restricted medication : JAMSHID EARLY [facility] pantoprazol e (PROTONIX) EC tablet 40 mg 02-21 14:00: 00 Yes 40mg 40 mg, Oral, DAILY, First dose on Tue02/21/23 at 0900, Until Discontinu ed, Routine [facility] insulin glargine (LANTUS U-100) injection 32 Units 02-21 14:00: 00 Yes 32U 32 Units, Subcutaneo us, DAILY, First dose on Tue02/21/23 at 0900, Until Discontinu ed [facility] escitalopra m oxalate (LEXAPRO) tablet 10 mg 02-21 14:00: 00 Yes 10mg 10 mg, Oral, DAILY, First dose on Tue02/21/23 at 0900, Until Discontinu ed, Routine [facility] aspirin EC tablet 81 mg 02-21 14:00: 00 Yes 81mg 81 mg, Oral, DAILY, First dose on Tue02/21/23 at 0900, Until Discontinu ed, Routine [facility] docusate (COLACE) capsule 100 mg 02-21 14:00: 00 Yes 100mg 100 mg, Oral, DAILY, First dose on Tue02/21/23 at 0900, Until Discontinu ed, Routine [facility] spironolact one (ALDACTONE) tablet 25 mg 02-21 13:00: 00 Yes 25mg 25 mg, Oral, BID, First dose on Tue02/21/23 at 0800, Until Discontinu ed, Routine [facility] pregabalin (LYRICA) capsule 50 mg 02-21 13:00: 00 Yes 50mg 50 mg, Oral, BID, First dose on Tue02/21/23 at 0800, Until Discontinu ed, Routine [facility] mupirocin (BACTROBAN OINT) 2 % skin ointment 02-21 13:00: 00 Yes [facility] metoprolol tartrate (LOPRESSOR) tablet 12.5 mg 02-21 13:00: 00 Yes 12.5mg 12.5 mg, Oral, BID, First dose on Tue02/21/23 at 0800, Until Discontinu ed, Routine [facility] baclofen (LIORESAL) tablet 10 mg 02-21 13:00: 00 Yes 10mg 10 mg, Oral, TID, First dose on Tue02/21/23 at 0800, Until Discontinu ed, Routine [facility] apixaban (ELIQUIS) tablet 5 mg 02-21 13:00: 00 Yes [id number] 5mg 5 mg, Oral, BID, First dose on Tue02/21/23 at 0800, Until Discontinu ed, Routine
Indicatio ns: Non-Valvul ar Atrial Fibrillati on [facility] levothyroxi ne (SYNTHROID) tablet 25 mcg 02-21 11:00: 00 Yes 25ug 25 mcg, Oral, QAM-0600, First dose on Tue02/21/23 at 0600, Until Discontinu ed, Routine [facility] furosemide (LASIX) tablet 40 mg 02-21 11:00: 00 Yes 40mg 40 mg, Oral, BID AT 0600 - 1800, First dose on Tue02/21/23 at 0600, Until Discontinu ed, Routine [facility] benzonatate (TESSALON PERLES) capsule 100 mg 02-21 11:00: 00 Yes 100mg 100 mg, Oral, Q8H, First dose on Tue02/21/23 at 0600, Until Discontinu ed, Routine [facility] FENTanyl PF (SUBLIMAZE (PF)) injection 25 mcg 02-21 06:55: 31 Yes 25ug 25 mcg, Slow IV Push, Q6HPRN, Starting on Tue02/21/23 at 0155, Until Discontinu ed, Routine, Pain (scale 4-6), Pain (scale 7-10) [facility] nystatin (NYSTOP) powder 02-21 06:10: 18 Yes Topical, TIDPRN, Starting on Tue02/21/23 at 0110, Until Discontinu ed, Routine, fungal rash [facility] NaCl 0.9% (NS) IV infusion 1,000 mL 02-21 04:30: 00 Yes 1000mL at 50 mL/hr, IV Infusion, CONTINUOUS , Starting on Tue02/20/23 at 2330, Until Discontinu ed, Routine [facility] ondansetron (ZOFRAN (PF)) injection 4 mg 02-21 04:17: 30 Yes 4mg 4 mg, Slow IV Push, Q6HPRN, Starting on Tue02/20/23 at 2317, Until Discontinu ed, Routine, Nausea and Vomiting (N/V) [facility] acetaminoph en (TYLENOL) tablet 650 mg 02-21 04:17: 11 Yes 650mg 650 mg, Oral, Q6HPRN, Starting on Tue02/20/23 at 2317, Until Discontinu ed, Routine, Pain (scale 1-3) [facility] FUROSEMIDE 40 mg tablet 02-03 00:00: 00 06-24 00:00 :00 No [id number] TAKE ONE (1) TABLET BY MOUTH EVERY MORNING AND EVENING. [facility] BACLOFEN 10 mg tablet 02-03 00:00: 00 04-19 00:00 :00 No [id number] TAKE ONE (1) TABLET(S) BY MOUTH THREE TIMES A DAY NEEDED. MAY MAKE YOU SLEEPY. [facility] TRAMADOL 50 mg tablet 01-28 00:00: 00 03-02 00:00 :00 No [id number] TAKE ONE (1) TABLET(S) BY MOUTH EVERY SIX HOURS NEEDED FOR PAIN. [facility] azelastine 137 mcg (0.1 %) nasal spray 01-18 00:00: 00 Yes [id number] 1{spray } Use 1 [place] in each nostril in the morning and 1 [place] in the evening. Use in each nostril as directed [facility] nystatin (NYSTOP) 100,000 unit/gram powder 01-18 00:00: 00 04-19 00:00 :00 No [id number] Apply to area(s) 3 (three) times daily as needed for Rash. [facility] FUROSEMIDE 40 mg tablet 01-05 00:00: 00 02-03 00:00 :00 No [id number] TAKE ONE (1) TABLET BY MOUTH EVERY MORNING AND EVENING. [facility] apixaban 5 mg tablet 12-24 00:00: 00 Yes [id number] 5mg Take 1 tablet by mouth in the morning and 1 tablet in the evening. Indication s: history of venous thromboemb olism [facility] traMADoL 50 mg tablet 12-23 00:00: 00 01-28 00:00 :00 No [id number] TAKE ONE (1) TABLET(S) BY MOUTH EVERY SIX HOURS NEEDED FOR PAIN. [facility] tramadol HCl (TRAMADOL ORAL) 12-21 10:44: 23 Yes Take by mouth. [facility] cefTRIAXone (ROCEPHIN) injection 1,000 mg 12-09 16:00: 00 12-09 15:17 :00 No [id number] 1000mg [facility] pramipexole 0.75 mg tablet 12-09 00:00: 00 12-21 00:00 :00 No [id number] .75mg Take 1 tablet by mouth at bedtime. [facility] cefdinir 300 mg capsule 12-09 00:00: 00 01-18 00:00 :00 No [id number] 300mg Take 1 capsule by mouth every 12 (twelve) hours. [facility] semaglutide (OZEMPIC) 2 mg/dose (8 mg/3 mL) PnIj 30 00:00: 00 02-21 00:00 :00 No [id number] INJECT TWO (2) MG UNDER THE SKIN ONCE WEEKLY. [facility] SPIRONOLACT ONE 25 mg tablet 10-28 00:00: 00 04-19 00:00 :00 No [id number] TAKE ONE (1) TABLET(S) BY MOUTH EVERY DAY. [facility] pramipexole 0.5 mg tablet 10-28 00:00: 00 12-09 00:00 :00 No [id number] .5mg Take 1 tablet by mouth at bedtime. May take a second tablet if symptoms have not improved. [facility] traMADoL 50 mg tablet 10-28 00:00: 00 11-05 04:59 :00 No [id number] 50mg Take 1 tablet by mouth every 6 (six) hours as needed for Pain (scale 4-6) for up to 7 days. Indication s: chronic pain [facility] BACLOFEN 10 mg tablet 10-14 00:00: 00 02-03 00:00 :00 No [id number] TAKE ONE (1) TABLET(S) BY MOUTH THREE TIMES A DAY NEEDED. MAY MAKE YOU SLEEPY. [facility] aspirin (ASPIRIN LOW DOSE) 81 mg EC tablet 09-28 10:56: 40 Yes 81mg Take 1 tablet by mouth in the morning. [facility] pantoprazol e 40 mg EC tablet 09-28 00:00: 00 04-19 00:00 :00 No [id number] 40mg Take 1 tablet by mouth in the morning. [facility] Non-Adheren t Bandage (CURAD NON-STICK PAD) 3 X 4 " Bndg 09-28 00:00: 00 04-19 00:00 :00 No [id number] Use as directed [facility] levothyroxi ne 25 mcg tablet 09-28 00:00: 00 04-19 00:00 :00 No [id number] 25ug Take 1 tablet by mouth every morning. [facility] honey (MEDIHONEY, HONEY,) 80 % 09-28 00:00: 00 12-09 00:00 :00 No [id number] 5mg Apply 5 mg to area(s) in the morning. [facility] aspirin (ASPIRIN LOW DOSE) 81 mg EC tablet 09-07 14:41: 12 Yes 81mg Take 1 tablet by mouth in the morning. [facility] FUROSEMIDE 40 mg tablet 09-07 00:00: 00 01-05 00:00 :00 No [id number] TAKE ONE (1) TABLET BY MOUTH EVERY MORNING AND EVENING. [facility] pravastatin 80 mg tablet 09-06 00:00: 00 04-19 00:00 :00 No [id number] 80mg Take 1 tablet by mouth at bedtime. [facility] spironolact one 25 mg tablet 09-04 00:00: 00 10-28 00:00 :00 No 25mg Take 1 tablet by mouth in the morning. [facility] BENZONATATE 100 mg capsule 09-03 00:00: 00 11-10 00:00 :00 No [id number] TAKE ONE (1) OR TWO (2) CAPSULE(S) BY MOUTH EVERY EIGHT HOURS NEEDED FOR COUGH. [facility] aspirin (ASPIRIN LOW DOSE) 81 mg EC tablet 08-31 11:35: 12 Yes 81mg Take 1 tablet by mouth in the morning. [facility] latanoprost (XALATAN) 0.005 % ophthalmic drops 08-31 11:35: 12 Yes 1[drp] Place 1 Drop in both eyes every evening. [facility] escitalopra m oxalate 10 mg tablet 08-31 00:00: 00 08-22 00:00 :00 No [id number] 10mg Take 1 tablet by mouth in the morning. [facility] insulin degludec 100 unit/mL Soln 08-31 00:00: 00 05-16 00:00 :00 No [id number] 32U inject 32 Units under the skin in the morning. Morning [facility] pregabalin 50 mg capsule 08-31 00:00: 00 03-02 00:00 :00 No [id number] 50mg Take 1 capsule by mouth in the morning and 1 capsule in the evening. [facility] TRESIBA FLEXTOUCH U-100 100 unit/mL (3 mL) InPn 08-24 00:00: 00 02-21 00:00 :00 No INJECT 30 UNIT(S) UNDER THE SKIN EVERY MORNING. [facility] azelastine 137 mcg (0.1 %) nasal spray 2 00:00: 00 01-18 00:00 :00 No [id number] 1{spray } Use 1 [place] in each nostril in the morning and 1 [place] in the evening. Use in each nostril as directed [facility] BACLOFEN 10 mg tablet 2- 00:00: 00 10-14 00:00 :00 No [id number] TAKE ONE (1) TABLET(S) BY MOUTH THREE TIMES A DAY NEEDED. MAY MAKE YOU SLEEPY. [facility] spironolact one 25 mg tablet 2-08 00:00: 00 09-20 00:00 :00 No 25mg Take 1 tablet by mouth in the morning. [facility] lisinopriL 5 mg tablet 1-30 00:00: 00 09-28 00:00 :00 No TAKE ONE (1) TABLET BY MOUTH IN THE MORNING. [facility] traZODone 50 mg tablet 1-27 00:00: 00 07-19 00:00 :00 No [id number] 50mg Take 1 tablet by mouth at bedtime. [facility] metoprolol tartrate 25 mg tablet 07-20 00:00: 00 12-08 00:00 :00 No [id number] 12.5mg Take 0.5 tablets by mouth in the morning and 0.5 tablets in the evening. [facility] fluticasone propionate 50 mcg/actuati on nasal spray 07-15 00:00: 00 Yes [id number] 2{spray } Use 2 Sprays in each nostril once daily as needed. [facility] benzonatate 100 mg capsule 07-15 00:00: 00 09-03 00:00 :00 No [id number] 100mg Take 1 capsule by mouth every 8 (eight) hours as needed for Cough. May take 1-2 capsules [facility] traZODone 50 mg tablet 07-15 00:00: 00 07-30 00:00 :00 No [id number] 50mg Take 1 tablet by mouth at bedtime. [facility] melatonin (MELATIN) tablet 3 mg 07-06 03:00: 00 Yes 3mg 3 mg, Oral, QHS, First dose on Tue07/05/22 at 2100, Until Discontinu ed, Routine [facility] traZODone (DESYREL) tablet 100 mg 07-06 03:00: 00 Yes 100mg 100 mg, Oral, QHS, First dose (after last modificati on) on Tue07/05/22 at 2100, Until Discontinu ed, Routine [facility] furosemide (LASIX) tablet 40 mg 07-05 23:00: 00 Yes 40mg 40 mg, Oral, QAM+PM, First dose on Tue07/05/22 at 1700, Until Discontinu ed, Routine [facility] aspirin (ASPIRIN LOW DOSE) 81 mg EC tablet 07-05 17:22: 16 Yes 81mg Take 81 mg by mouth daily. [facility] latanoprost (XALATAN) 0.005 % ophthalmic drops 07-05 17:22: 16 Yes 1[drp] Place 1 Drop in both eyes every evening. [facility] mupirocin 2 % ointment 07-05 00:00: 00 04-19 00:00 :00 No [id number] Apply to area(s) 3 (three) times daily. As needed [facility] melatonin 3 mg tablet 07-05 00:00: 00 04-12 00:00 :00 No [id number] 3mg Take 1 tablet by mouth at bedtime. [facility] docusate 100 mg capsule 07-05 00:00: 00 02-21 00:00 :00 No [id number] 100mg Take 1 capsule by mouth in the morning and 1 capsule in the evening. [facility] metoprolol tartrate 75 mg Tab 07-05 00:00: 00 07-15 00:00 :00 No [id number] 75mg Take 75 mg by mouth 2 (two) times daily for 30 days. [facility] benzonatate 100 mg capsule 07-05 00:00: 00 07-15 00:00 :00 No [id number] 100mg Take 1 capsule by mouth every 8 (eight) hours as needed for Cough. [facility] traZODone 50 mg tablet 07-05 00:00: 00 07-15 00:00 :00 No [id number] 50mg Take 1 tablet by mouth at bedtime for 30 days. [facility] furosemide (LASIX) injection 40 mg 07-04 14:00: 00 07-05 14:47 :21 No 40mg 40 mg, Slow IV Push, Q12H, First dose (after last modificati on) on 07/04/22 at 0800, Until Discontinu ed, Routine [facility] traZODone (DESYREL) tablet 50 mg 07-04 03:00: 00 07-05 17:04 :22 No 50mg 50 mg, Oral, QHS, First dose on 07/03/22 at 2100, Until Discontinu ed, Routine [facility] KCL (KLOR-CON M20) tablet 40 mEq 2021-07 21:45: 00 Yes 40meq 40 mEq, Oral, BID, First dose (after last reorder) on 07/03/22 at 1545, Until Discontinu ed, Routine [facility] KCL (KLOR-CON M20) tablet 40 mEq 2021-07 16:15: 00 07-02 17:19 :00 No 40meq 40 mEq, Oral, ONCE, 1 dose, On Tue07/02/22 at 1015, Routine [facility] ceFEPIme (MAXIPIME) 1,000 mg in NaCl 0.9% (NS) 50 mL MINI-BAG 2021-07 19:00: 00 07-05 10:12 :00 No 1000mg 1,000 mg, IV Piggyback, Q12H ABX, 8 doses, First dose (after last modificati on) on Devika 07/01/22 at 1300, Last dose on Tue07/05/22 at 0100, Administer over 4 Hours, 50 mL
Reas on for Anti-Infec tive: Empiric Therapy for Suspected Infection< br>Empiric Therapy Site: Respirator y
Durat ion of therapy: 5 days [facility] metoprolol tartrate (LOPRESSOR) tablet 75 mg 2021-07 14:00: 00 Yes 75mg 75 mg, Oral, BID, First dose (after last modificati on) on Devika 07/01/22 at 0800, Until Discontinu ed, Routine [facility] ceFEPIme (MAXIPIME) 1,000 mg in NaCl 0.9% (NS) 50 mL MINI-BAG 2021-07 05:15: 00 07-01 17:30 :14 No 1000mg 1,000 mg, IV Piggyback, Q12H ABX, 10 doses, First dose on Tue06/30/22 at 2315, Last dose on Tue07/05/22 at 1115, Administer over 4 Hours, 50 mL
Reas on for Anti-Infec tive: Empiric Therapy for Suspected Infection< br>Empiric Therapy Site: Respirator y
Durat ion of therapy: 5 days [facility] digoxin (LANOXIN) injection 250 mcg 2021-07 21:00: 00 06-30 21:27 :00 No 250ug 250 mcg, Intravenou s, ONCE, 1 dose, On Tue06/30/22 at 1500, Routine [facility] furosemide (LASIX) injection 40 mg 2021-07 20:00: 00 07-03 21:32 :30 No 40mg 40 mg, Slow IV Push, Q8H, First dose (after last modificati on) on Tue06/30/22 at 1400, Until Discontinu ed, Routine [facility] vancom[facility] 1,250 mg in NaCl 0.9% (NS) 250 mL VIAL-MATE IV piggyback 2021-07 18:15: 00 07-01 19:13 :33 No 1250mg 1,250 mg, IV Piggyback, Q24H ABX, 5 doses, First dose on Tue06/30/22 at 1215, Last dose on Tue07/04/22 at 1215, Administer over 90 Minutes, 250 mL
Reas on for Anti-Infec tive: Empiric Therapy for Suspected Infection< br>Empiric Therapy Site: Respirator y
Durat ion of therapy: 5 days [facility] ceFEPIme (MAXIPIME) 1,000 mg in NaCl 0.9% (NS) 50 mL MINI-BAG 2021-07 18:00: 00 06-30 19:23 :00 No 1000mg 1,000 mg, IV Piggyback, ONCE, 1 dose, On Tue06/30/22 at 1200, Administer over 30 Minutes, 50 mL
Reas on for Anti-Infec tive: Empiric Therapy for Suspected Infection< br>Empiric Therapy Site: Respirator y
Durat ion of therapy: 72 hours [facility] lactobacill us acidophilus tablet 1 mg 2021-07 17:15: 00 Yes 1mg 1 mg, Oral, BID, First dose on Tue06/30/22 at 1115, Until Discontinu ed, Routine [facility] bisacodyL (DULCOLAX) suppository 10 mg 2021-07 15:15: 00 06-30 15:26 :00 No 10mg 10 mg, Rectal, ONCE, 1 dose, On Tue06/30/22 at 0915, Routine [facility] polyethylen e glycol 3350 powder 17 g 2021-07 15:00: 00 07-02 14:10 :00 No 17g 17 g, Oral, DAILY, 3 doses, First dose on Tue06/30/22 at 0900, Last dose on Tue07/02/22 at 0900, Routine [facility] KCL (KLOR-CON M20) tablet 20 mEq 2021-07 14:45: 00 06-30 15:26 :00 No 20meq 20 mEq, Oral, ONCE, 1 dose, On Tue06/30/22 at 0845, Routine [facility] sennosides (SENOKOT) tablet 8.6 mg 2021-07 14:30: 00 Yes 8.6mg 8.6 mg, Oral, BID, First dose on Tue06/30/22 at 0830, Until Discontinu ed, Routine [facility] docusate (COLACE) capsule 100 mg 2021-07 14:30: 00 Yes 100mg 100 mg, Oral, BID, First dose on Tue06/30/22 at 0830, Until Discontinu ed, Routine [facility] digoxin (LANOXIN) injection 500 mcg 2021-07 14:15: 00 06-30 13:27 :00 No 500ug 500 mcg, Intravenou s, ONCE, 1 dose, On Tue06/30/22 at 0815, Routine [facility] metoprolol tartrate (LOPRESSOR) tablet 50 mg 2021-07 14:00: 00 07-01 13:55 :27 No 50mg 50 mg, Oral, BID, First dose (after last modificati on) on Tue06/30/22 at 0800, Until Discontinu ed, Routine [facility] furosemide (LASIX) injection 40 mg 2021-07 14:00: 00 06-30 14:36 :33 No 40mg 40 mg, Slow IV Push, Q12H, First dose (after last modificati on) on Tue06/30/22 at 0800, Until Discontinu ed, Routine [facility] metop[facility] (LOPRESSOR) injection 5 mg 2021-07 12:33: 00 06-30 12:34 :00 No 5mg 5 mg, Intravenou s, ONCE NOW, 1 dose, On Tue06/30/22 at 0645, GI [facility] ipratropium -albuteroL (DUONEB) 0.5 mg-3 mg(2.5 mg base)/3 mL nebulizer solution 3 mL 2021-07 12:14: 50 Yes 3mL 3 mL, Inhalation , Q6HPRN, Starting on Tue06/30/22 at 0614, Until Discontinu ed, Routine, Wheezing [facility] metoprolol tartrate (LOPRESSOR) tablet 25 mg 2021-07 02:00: 00 06-30 12:36 :09 No 25mg 25 mg, Oral, BID, First dose (after last modificati on) on Tue06/29/22 at 2000, Until Discontinu ed, Routine [facility] guaiFENesin (FENESIN IR) tablet 400 mg 2021-07 00:15: 00 Yes 400mg 400 mg, Oral, Q6H, First dose on Tue06/29/22 at 1815, Until Discontinu ed, Routine [facility] benzocaine- menthoL (CEPACOL SORE THROAT (JYOTSNA-MEN)) lozenge 1 Lozenge 2021-07 00:15: 00 Yes 1{lozen ge} 1 Lozenge, Oral, Q6H, First dose on Tue06/29/22 at 1815, Until Discontinu ed, Routine [facility] levalbutero l (XOPENEX) nebulizer solution 0.63 mg 2021-07 00:00: 00 Yes .63mg 0.63 mg, Inhalation , QID, First dose on Tue06/29/22 at 1800, Until Discontinu ed, Routine [facility] furosemide (LASIX) injection 20 mg 2021-07 14:00: 00 06-30 13:15 :52 No 20mg 20 mg, Slow IV Push, Q12H, First dose on Tue06/29/22 at 0800, Until Discontinu ed, Routine [facility] metoclopram cory HCl (REGLAN) injection 10 mg 2021-07 06:26: 57 Yes 10mg 10 mg, Slow IV Push, TIDPRN, Starting on Tue06/29/22 at 0026, Until Discontinu ed, Routine, Nausea and Vomiting (N/V) [facility] NaCl 0.9% (NS) IV infusion 1,000 mL 2021-07 00:00: 00 06-29 13:03 :24 No 1000mL at 80 mL/hr, IV Infusion, CONTINUOUS , Starting on Tue06/27/22 at 1800, Until Tue06/29/22 at 0703, Routine [facility] ondansetron (ZOFRAN (PF)) injection 4 mg 2021-07 22:23: 48 Yes 4mg 4 mg, Slow IV Push, Q6HPRN, Starting on Tue06/27/22 at 1623, Until Discontinu ed, GI, Nausea and Vomiting (N/V) [facility] cefTRIAXone (ROCEPHIN) 1,000 mg in NaCl 0.9% (NS) 50 mL MINI-BAG 2021-07 18:00: 00 06-30 17:10 :54 No 1000mg 1,000 mg, IV Piggyback, Q24H ABX, 5 doses, First dose (after last reorder) on Tue06/27/22 at 1200, Last dose on Tue07/01/22 at 1200, Administer over 30 Minutes, 50 mL
Reas on for Anti-Infec tive: Documented Infection< br>Documen steph Infection Site: Urine
D uration of Therapy: Other (see Comments) [facility] pantoprazol e (PROTONIX) EC tablet 40 mg 2021-07 15:00: 00 Yes 40mg 40 mg, Oral, DAILY, First dose on 06/27/22 at 0900, Until Discontinu ed, Routine [facility] escitalopra m oxalate (LEXAPRO) tablet 10 mg 2021-07 15:00: 00 Yes 10mg 10 mg, Oral, DAILY, First dose on 06/27/22 at 0900, Until Discontinu ed, Routine [facility] aspirin EC tablet 81 mg 2021-07 15:00: 00 Yes 81mg 81 mg, Oral, DAILY, First dose on 06/27/22 at 0900, Until Discontinu ed, Routine [facility] levothyroxi ne (SYNTHROID) tablet 25 mcg 2021-07 12:00: 00 Yes 25ug 25 mcg, Oral, QAM-0600, First dose on 06/27/22 at 0600, Until Discontinu ed, Routine [facility] benzonatate (TESSALON PERLES) capsule 100 mg 2021-07 11:55: 14 Yes 100mg 100 mg, Oral, Q8HPRN, Starting on 06/27/22 at 0555, Until Discontinu ed, Routine, Cough [facility] baclofen (LIORESAL) tablet 10 mg 2021-07 05:31: 57 Yes 10mg 10 mg, Oral, TIDPRN, Starting on 06/26/22 at 2331, Until Discontinu ed, Routine, for restless legs, may make you sleepy [facility] traMADoL (ULTRAM) tablet 50 mg 2021-07 05:31: 44 Yes 50mg 50 mg, Oral, Q8HPRN, Starting on 06/26/22 at 2331, Until Discontinu ed, Routine, Pain (scale 4-6) [facility] pregabalin (LYRICA) capsule 50 mg 2021-07 03:00: 00 Yes 50mg 50 mg, Oral, QHS, First dose on 06/26/22 at 2100, Until Discontinu ed, Routine [facility] pramipexole (MIRAPEX) tablet 0.5 mg 2021-07 03:00: 00 Yes .5mg 0.5 mg, Oral, QHS, First dose on 06/26/22 at 2100, Until Discontinu ed, Routine [facility] Sliding Scale Insulin - Lispro (HumaLOG) + Fsbg Testing 2021-07 02:00: 00 Yes Subcutaneo us, Q4H, First dose on 06/26/22 at 2000, Until Discontinu ed, Routine [facility] apixaban (ELIQUIS) tablet 5 mg 2021-07 02:00: 00 Yes [id number] 5mg 5 mg, Oral, BID, First dose on 06/26/22 at 2000, Until Discontinu ed, Routine
Indicatio ns: Non-Valvul ar Atrial Fibrillati on [facility] metoprolol tartrate (LOPRESSOR) tablet 12.5 mg 2021-07 02:00: 00 06-29 23:04 :26 No 12.5mg 12.5 mg, Oral, BID, First dose on 06/26/22 at 2000, Until Discontinu ed, Routine [facility] dextrose 10% (D10W) bolus infusion 250 mL 2021-07 01:00: 10 Yes 250mL 250 mL, IV Infusion, PRN - SEE INSTRUCTIO NS, Administer over 60 Minutes, Other, If blood glucose is < or = 70 mg/dL and patient is unable to swallow or has mental status changes, Starting on 06/26/22 at 1900
If blood glucose is < or = 70 mg/dL and patient is unable to swallow or has mental status changes (Give glucagon order if patient needs fluid restrictio n): IF IV access available: Dextrose 10%. 1. 125 mL (? bag) of D10W IV infusion - equivalent to 12.5 g dextrose 2. Blood glucose - draw blood glucose 15 minutes after D10W Administra tion. 3. If blood glucose is < 80 mg/dL, repeat.
[facility] glucagon (GLUCAGEN DIAGNOSTIC KIT) injection 1 mg 2021-07 01:00: 08 Yes 1mg 1 mg, Intramuscu lar, PRN, Starting on 06/26/22 at 1900, Until Discontinu ed, GI, Blood Glucose < or = 70 mg/dL and patient is unable to swallow or has mental changes. [facility] D5W 0.9% NaCl (NS) IV infusion 1,000 mL 2021-07 01:00: 00 06-27 22:43 :57 No 1000mL at 42 mL/hr, 1,000 mL, IV Infusion, CONTINUOUS , Starting on 06/26/22 at 1900, Until 06/27/22 at 1643, Routine [facility] latanoprost (XALATAN) 0.005 % ophthalmic drops 1 Drop 2021-07 00:00: 00 Yes 1[drp] 1 Drop, Both Eyes, QPM, First dose on 06/26/22 at 1800, Until Discontinu ed, Routine [facility] acetaminoph en (TYLENOL) tablet 650 mg 2021-07 23:50: 15 Yes 650mg 650 mg, Oral, Q6HPRN, Starting on 06/26/22 at 1750, Until Discontinu ed, Routine, Pain (scale 1-3) [facility] ondansetron (ZOFRAN (PF)) injection 4 mg 2021-07 19:15: 00 06-26 18:41 :00 No 4mg 4 mg, Slow IV Push, ONCE, 1 dose, On 06/26/22 at 1315, GI [facility] blood sugar diagnostic (ACCU-CHEK PHILLIP) strip 2021-07 00:00: 00 Yes [id number] Take sugars 3 times a day, DX E11.9 [facility] blood sugar diagnostic (ACCU-CHEK PHILLIP) strip 2021-07 00:00: 00 04-19 00:00 :00 No [id number] Take sugars 3 times a day, DX E11.9 [facility] escitalopra m oxalate 10 mg tablet 2021-07 00:00: 00 08-31 00:00 :00 No [id number] 10mg Take 1 tablet by mouth in the morning. [facility] pregabalin 50 mg capsule 2021-07 2- 00:00: 00 08-31 00:00 :00 No [id number] 50mg Take 1 capsule by mouth at bedtime. [facility] metoprolol tartrate 25 mg tablet 2021-07 2- 00:00: 00 07-05 00:00 :00 No [id number] 12.5mg Take 0.5 tablets by mouth in the morning and 0.5 tablets in the evening. [facility] baclofen 10 mg tablet 2021-07 00:00: 00 08-12 00:00 :00 No [id number] 10mg Take 1 tablet by mouth 3 (three) times daily as needed for Pain (scale 4-6) (for restless legs, may make you sleepy). [facility] KLOR-CON 10 10 mEq CR tablet 2021-07 00:00: 00 10-28 00:00 :00 No [id number] TAKE 1 TABLET BY MOUTH ONCE DAILY NEEDED FOR OTHER (TAKE WHEN INCREASING LASIX DOSE). [facility] furosemide 40 mg tablet 2021-07 0 00:00: 00 09-07 00:00 :00 No [id number] 40mg Take 1 tablet by mouth every morning and evening. [facility] flash glucose scanning reader (FREESTYLE MUNA 14 DAY READER) Misc 2021-07 0 00:00: 00 06-26 00:00 :00 No [id number] 1{each} inject 1 Each under the skin every 14 (fourteen) days. [facility] flash glucose sensor (FREESTYLE MUNA 2 SENSOR) Kit 2021-07 0- 00:00: 00 06-26 00:00 :00 No [id number] 1{each} inject 1 Each under the skin every 14 (fourteen) days. Change 1 sensor every 14 days [facility] lisinopriL 5 mg tablet 2021-07 0-12 00:00: 00 05-10 00:00 :00 No [id number] 5mg Take 1 tablet by mouth in the morning. [facility] FREESTYLE MUNA 14 DAY READER [facility]07 0 00:00: 00 04-22 00:00 :00 No [id number] USE WITH SENSOR TO CHECK BLOOD SUGAR FOUR TIMES DAILY DIRECTED [facility] semaglutide (OZEMPIC) 2 mg/dose (8 mg/3 mL) PnIj 03-29 00:00: 00 11-30 00:00 :00 No [id number] 2mg inject 2 mg under the skin weekly. [facility] baclofen 10 mg tablet 03-25 00:00: 00 06-01 00:00 :00 No [id number] 9104 10mg Take 1 tablet by mouth 3 (three) times daily as needed for Pain (scale 4-6) (for restless legs, may make you sleepy). [facility] flash glucose scanning reader (FREESTYLE MUNA 14 DAY READER) [facility]-25 00:00: 00 04-13 00:00 :00 No 1{appli cator} 1 Applicator 4 (four) times daily. Check glucose qid as directed [facility] FREESTYLE MUNA 2 SENSOR Kit 03-24 00:00: 00 04-22 00:00 :00 No [id number] CHANGE 1 SENSOR EVERY 14 DAYS [facility] BACLOFEN 10 mg tablet 03-23 00:00: 00 03-25 00:00 :00 No [id number] 9104 10mg TAKE 1 TABLET BY MOUTH 3 (THREE) TIMES DAILY NEEDED FOR PAIN (SCALE 4-6) (FOR RESTLESS LEGS, MAY MAKE YOU SLEEPY). [facility] apixaban 5 mg tablet 03-19 00:00: 00 12-24 00:00 :00 No [id number] 5mg Take 1 tablet by mouth in the morning and 1 tablet in the evening. Indication s: history of venous thromboemb olism [facility] flash glucose sensor (FREESTYLE MUNA 2 SENSOR) Kit 03-16 00:00: 00 Yes [id number] 1{each} 1 Each every 14 (fourteen) days. [facility] flash glucose sensor (FREESTYLE MUNA 2 SENSOR) Kit 03-15 00:00: 00 03-16 00:00 :00 No [id number] 1{each} 1 Each every 7 (seven) days. Apply every 10 days [facility] insulin aspart U-100 100 unit/mL (3 mL) injection 02-25 00:00: 00 07-05 00:00 :00 No [id number] INJECT 12 U SUBCUTANEO USLY WITH BREAKFAST, 14 U WITH LUNCH/DINN ER DAILY [facility] potassium chloride 10 mEq CR tablet 02-25 00:00: 00 05-31 00:00 :00 No [id number] 10meq Take 1 tablet by mouth once daily as needed for Other (Take when increasing Lasix dose). [facility] flash glucose scanning reader (FREESTYLE MUNA 14 DAY READER) Misc 02-25 00:00: 00 03-25 00:00 :00 No [id number] 1{appli cator} 1 Applicator 4 (four) times daily. Check glucose qid as directed [facility] baclofen 10 mg tablet 02-25 00:00: 00 03-23 00:00 :00 No [id number] 9104 10mg Take 1 tablet by mouth 3 (three) times daily as needed for Pain (scale 4-6) (for restless legs, may make you sleepy). [facility] rivaroxaban 20 mg tablet 02-25 00:00: 00 03-19 00:00 :00 No [id number] 20mg Take 1 tablet by mouth in the morning. Indication s: blood clot formation in vein [facility] flash glucose sensor (FREESTYLE MUNA 14 DAY SENSOR) Kit 02-25 00:00: 00 03-15 00:00 :00 No [id number] 1{appli cator} 1 Applicator 4 (four) times daily. Check glucose qid as directed [facility] aspirin (ASPIRIN LOW DOSE) 81 mg EC tablet 02-20 12:17: 44 Yes 81mg Take 81 mg by mouth daily. [facility] latanoprost , PF, 0.005 % Drop 02-20 12:17: 44 Yes 1[drp] Place 1 Drop in both eyes at bedtime. [facility] insulin degludec (TRESIBA U-100 INSULIN) 100 unit/mL Soln 02-20 00:00: 00 08-31 00:00 :00 No [id number] 30U inject 30 Units under the skin daily. Morning [facility] metoprolol tartrate 25 mg tablet 02-20 00:00: 00 06-08 00:00 :00 No [id number] 12.5mg Take 0.5 tablets by mouth in the morning and 0.5 tablets in the evening. [facility] flash glucose scanning reader (FREESTYLE MUNA 14 DAY READER) Misc 02-20 00:00: 00 02-25 00:00 :00 No [id number] 1{appli cator} 1 Applicator 4 (four) times daily. Check glucose qid as directed [facility] flash glucose sensor (FREESTYLE MUNA 14 DAY SENSOR) Kit 02-20 00:00: 00 02-25 00:00 :00 No [id number] 1{appli cator} 1 Applicator 4 (four) times daily. Check glucose qid as directed [facility] ferrous sulfate 325 mg (65 mg iron) tablet 02-01 00:00: 00 Yes [id number] 325mg Take 1 tablet by mouth every Tuesday, and Tuesday in the evening. [facility] escitalopra m oxalate 10 mg tablet 02-01 00:00: 00 06-08 00:00 :00 No [id number] 10mg Take 1 tablet by mouth in the morning. [facility] pregabalin 50 mg capsule 02-01 00:00: 00 06-08 00:00 :00 No [id number] 50mg Take 1 capsule by mouth at bedtime. [facility] rivaroxaban 20 mg tablet 02-01 00:00: 00 02-25 00:00 :00 No [id number] 20mg Take 1 tablet by mouth in the morning. Indication s: blood clot formation in vein [facility] insulin aspart U-100 (NOVOLOG FLEXPEN U-100 INSULIN) 100 unit/mL (3 mL) injection 02-01 00:00: 00 02-25 00:00 :00 No [id number] INJECT 10 U SUBCUTANEO USLY WITH BREAKFAST, 12 U WITH LUNCH/DINN ER DAILY [facility] mupirocin 2 % ointment 01-29 00:00: 00 07-05 00:00 :00 No [id number] Apply to area(s) 3 (three) times daily. [facility] pantoprazol e 40 mg EC tablet 10-25 00:00: 00 Yes [id number] 40mg Take 1 tablet by mouth in the morning. [facility] polyethylen e glycol 3350 (MIRALAX) 17 gram/dose powder 10-25 00:00: 00 Yes [id number] 17g Take 17 g by mouth in the morning. [facility] levothyroxi ne 25 mcg tablet 10-25 00:00: 00 11-10 00:00 :00 No [id number] 25ug Take 1 tablet by mouth every morning. [facility] pramipexole 0.5 mg tablet 10-24 00:00: 00 10-28 00:00 :00 No [id number] .5mg Take 1 tablet by mouth at bedtime. [facility] pravastatin 80 mg tablet 10-24 00:00: 00 09-06 00:00 :00 No [id number] 80mg Take 1 tablet by mouth at bedtime. [facility] furosemide 40 mg tablet 2022-0 4-23 00:00: 00 04-22 00:00 :00 No [id number] 40mg Take 1 tablet by mouth every morning and evening. [facility] NYSTOP 100,000 unit/gram powder 2020-07 2-09 00:00: 00 01-18 00:00 :00 No [facility] Lancets (ACCU-CHEK MULTICLIX LANCET) [facility]-20 00:00: 00 Yes [id number] Use as directed [facility] Lancets (ACCU-CHEK MULTICLIX LANCET) [facility] 03-20 00:00: 00 04-19 00:00 :00 No [id number] Use as directed [facility] Insulin Syringe-Nee dle U-100 0.3 mL 30 gauge x 1/2" Syrg 03-20 00:00: 00 05-10 00:00 :00 No [id number] Use as directed [facility] Insulin [place], Disposable, (BD INSULIN PEN NEEDLE UF) 29 gauge x 1/2" [facility] 2018-07 2 00:00: 00 Yes [id number] Use as directed, once a day, DX:E11.9 [facility] Insulin [place], Disposable, (BD INSULIN PEN NEEDLE UF) 29 gauge x 1/2" [facility] 2018-07 230 00:00: 00 04-19 00:00 :00 No [id number] Use as directed, once a day, DX:E11.9 [facility] ACCU-CHEK PHILLIP strip 5-10 00:00: 00 06-08 00:00 :00 No [id number] Take sugars 1-2 times a day, DX E11.9 [facility] Banophen 25 mg capsule Take 1 capsule every 6 hours by oral route. Banophen 25 mg capsule Take 1 capsule every 6 hours by oral route. No 1capsul e(s) Q6H Banophen 25 mg capsule Take 1 capsule every 6 hours by oral route. Har[facility] Leung [facility] BD Ultra-Fine Original Pen Needle 29 gauge x 1/2" BD Ultra-Fine Original Pen Needle 29 gauge x 1/2" No BD Ultra-Fine Original Pen Needle 29 gauge x 1/2" [facility] Eliquis 5 mg tablet TAKE 1 TABLET BY MOUTH 2 (TWO) TIMES DAILY. INDICATIONS DEEP VEIN THROMBOSIS PREVENTION Eliquis 5 mg tablet TAKE 1 TABLET BY MOUTH 2 (TWO) TIMES DAILY. INDICATIONS DEEP VEIN THROMBOSIS PREVENTION No Eliquis 5 mg tablet TAKE 1 TABLET BY MOUTH 2 (TWO) TIMES DAILY. INDICATION S DEEP VEIN THROMBOSIS PREVENTION [facility] levothyroxi ne 50 mcg tablet Take 1 tablet every day by oral route. levothyroxi ne 50 mcg tablet Take 1 tablet every day by oral route. No 1 Q1D levothyrox ine 50 mcg tablet Take 1 tablet every day by oral route. [facility] Novolog Flexpen U-100 Insulin aspart 100 unit/mL (3 mL) subcutaneou s sliding scale: based on blood sugar Novolog Flexpen U-100 Insulin aspart 100 unit/mL (3 mL) subcutaneou s sliding scale: based on blood sugar No Novolog Flexpen U-100 Insulin aspart 100 unit/mL (3 mL) subcutaneo us sliding scale: based on blood sugar [facility] Ozempic 1 mg/dose (2 mg/1.5 mL) subcutaneou s pen injector INJECT 1 MG EVERY WEEK BY SUBCUTANEOU S ROUTE. Ozempic 1 mg/dose (2 mg/1.5 mL) subcutaneou s pen injector INJECT 1 MG EVERY WEEK BY SUBCUTANEOU S ROUTE. No Ozempic 1 mg/dose (2 mg/1.5 mL) subcutaneo us pen injector INJECT 1 MG EVERY WEEK BY SUBCUTANEO US ROUTE. [facility] pregabalin 300 mg capsule TAKE 1 CAPSULE BY MOUTH TWICE A DAY pregabalin 300 mg capsule TAKE 1 CAPSULE BY MOUTH TWICE A DAY No pregabalin 300 mg capsule TAKE 1 CAPSULE BY MOUTH TWICE A DAY [facility] sulfamethox azole 800 mg-trimetho prim 160 mg tablet Take 1 tablet every 12 hours by oral route. sulfamethox azole 800 mg-trimetho prim 160 mg tablet Take 1 tablet every 12 hours by oral route. No sulfametho xazole 800 mg-trimeth oprim 160 mg tablet Take 1 tablet every 12 hours by oral route. [facility] [facility] Accu-Chek Phillip Plus test strips USE 1 STRIP 3 TIMES A DAY Accu-Chek Phillip Plus test strips USE 1 STRIP 3 TIMES A DAY No Accu-Chek Phillip Plus test strips USE 1 STRIP 3 TIMES A DAY [facility] Banophen 25 mg capsule Take 1 capsule every 6 hours by oral route. Banophen 25 mg capsule Take 1 capsule every 6 hours by oral route. No 1capsul e(s) Q6H Banophen 25 mg capsule Take 1 capsule every 6 hours by oral route. [facility] BD Ultra-Fine Original Pen Needle 29 gauge x 1/2" BD Ultra-Fine Original Pen Needle 29 gauge x 1/2" No BD Ultra-Fine Original Pen Needle 29 gauge x 1/2" [facility] Eliquis 5 mg tablet TAKE 1 TABLET BY MOUTH 2 (TWO) TIMES DAILY. INDICATIONS DEEP VEIN THROMBOSIS PREVENTION Eliquis 5 mg tablet TAKE 1 TABLET BY MOUTH 2 (TWO) TIMES DAILY. INDICATIONS DEEP VEIN THROMBOSIS PREVENTION No Eliquis 5 mg tablet TAKE 1 TABLET BY MOUTH 2 (TWO) TIMES DAILY. INDICATION S DEEP VEIN THROMBOSIS PREVENTION [facility] ferrous sulfate 325 mg (65 mg iron) tablet Take 1 tablet every day by oral route. ferrous sulfate 325 mg (65 mg iron) tablet Take 1 tablet every day by oral route. No 1 Q1D ferrous sulfate 325 mg (65 mg iron) tablet Take 1 tablet every day by oral route. [facility] levothyroxi ne 50 mcg tablet Take 1 tablet every day by oral route. levothyroxi ne 50 mcg tablet Take 1 tablet every day by oral route. No 1 Q1D levothyrox ine 50 mcg tablet Take 1 tablet every day by oral route. [facility] Novolog Flexpen U-100 Insulin aspart 100 unit/mL (3 mL) subcutaneou s sliding scale: based on blood sugar Novolog Flexpen U-100 Insulin aspart 100 unit/mL (3 mL) subcutaneou s sliding scale: based on blood sugar No Novolog Flexpen U-100 Insulin aspart 100 unit/mL (3 mL) subcutaneo us sliding scale: based on blood sugar [facility] Ozempic 1 mg/dose (2 mg/1.5 mL) subcutaneou s pen injector INJECT 1 MG EVERY WEEK BY SUBCUTANEOU S ROUTE. Ozempic 1 mg/dose (2 mg/1.5 mL) subcutaneou s pen injector INJECT 1 MG EVERY WEEK BY SUBCUTANEOU S ROUTE. No Ozempic 1 mg/dose (2 mg/1.5 mL) subcutaneo us pen injector INJECT 1 MG EVERY WEEK BY SUBCUTANEO US ROUTE. [facility] pregabalin 300 mg capsule TAKE 1 CAPSULE BY MOUTH TWICE A DAY pregabalin 300 mg capsule TAKE 1 CAPSULE BY MOUTH TWICE A DAY No pregabalin 300 mg capsule TAKE 1 CAPSULE BY MOUTH TWICE A DAY [facility] doxycycline hyclate 100 mg capsule TAKE 1 CAPSULE BY MOUTH TWICE A DAY doxycycline hyclate 100 mg capsule TAKE 1 CAPSULE BY MOUTH TWICE A DAY No doxycyclin e hyclate 100 mg capsule TAKE 1 CAPSULE BY MOUTH TWICE A DAY [facility] Accu-Chek Phillip Plus test strips USE 1 STRIP 3 TIMES A DAY Accu-Chek Phillip Plus test strips USE 1 STRIP 3 TIMES A DAY No Accu-Chek Phillip Plus test strips USE 1 STRIP 3 TIMES A DAY [facility] aspirin 81 mg chewable tablet Chew 1 tablet every day by oral route. aspirin 81 mg chewable tablet Chew 1 tablet every day by oral route. No 1 Q1D aspirin 81 mg chewable tablet Chew 1 tablet every day by oral route. [facility] Banophen 25 mg capsule TAKE 1 CAPSULE EVERY 6 HOURS BY ORAL ROUTE. As needed for Iching Banophen 25 mg capsule TAKE 1 CAPSULE EVERY 6 HOURS BY ORAL ROUTE. As needed for Iching No Banophen 25 mg capsule TAKE 1 CAPSULE EVERY 6 HOURS BY ORAL ROUTE. As needed for Iching [facility] BD Ultra-Fine Original Pen Needle 29 gauge x 1/2" USE 4 TIMES A DAY DIRECTED BD Ultra-Fine Original Pen Needle 29 gauge x 1/2" USE 4 TIMES A DAY DIRECTED No BD Ultra-Fine Original Pen Needle 29 gauge x 1/2" USE 4 TIMES A DAY DIRECTED [facility] doxycycline hyclate 100 mg capsule doxycycline hyclate 100 mg capsule No doxycyclin e hyclate 100 mg capsule [facility] Eliquis 5 mg tablet TAKE 1 TABLET BY MOUTH 2 (TWO) TIMES DAILY. INDICATIONS DEEP VEIN THROMBOSIS PREVENTION Eliquis 5 mg tablet TAKE 1 TABLET BY MOUTH 2 (TWO) TIMES DAILY. INDICATIONS DEEP VEIN THROMBOSIS PREVENTION No Eliquis 5 mg tablet TAKE 1 TABLET BY MOUTH 2 (TWO) TIMES DAILY. INDICATION S DEEP VEIN THROMBOSIS PREVENTION [facility] Farxiga 10 mg tablet TAKE 1 TABLET BY MOUTH EVERY DAY Farxiga 10 mg tablet TAKE 1 TABLET BY MOUTH EVERY DAY No Farxiga 10 mg tablet TAKE 1 TABLET BY MOUTH EVERY DAY [facility] midodrine 5 mg tablet TAKE 1 TABLET BY MOUTH THREE TIMES A DAY midodrine 5 mg tablet TAKE 1 TABLET BY MOUTH THREE TIMES A DAY No midodrine 5 mg tablet TAKE 1 TABLET BY MOUTH THREE TIMES A DAY [facility] Novolog Flexpen U-100 Insulin aspart 100 unit/mL (3 mL) subcutaneou s sliding scale: based on blood sugar Novolog Flexpen U-100 Insulin aspart 100 unit/mL (3 mL) subcutaneou s sliding scale: based on blood sugar No Novolog Flexpen U-100 Insulin aspart 100 unit/mL (3 mL) subcutaneo us sliding scale: based on blood sugar [facility] Nystop 100,000 unit/gram topical powder APPLY TO THE AFFECTED AREA(S) BY TOPICAL ROUTE 2 TIMES PER DAY Nystop 100,000 unit/gram topical powder APPLY TO THE AFFECTED AREA(S) BY TOPICAL ROUTE 2 TIMES PER DAY No Nystop 100,000 unit/gram topical powder APPLY TO THE AFFECTED AREA(S) BY TOPICAL ROUTE 2 TIMES PER DAY [facility] Ozempic 1 mg/dose (2 mg/1.5 mL) subcutaneou s pen injector INJECT 1 MG EVERY WEEK BY SUBCUTANEOU S ROUTE. Ozempic 1 mg/dose (2 mg/1.5 mL) subcutaneou s pen injector INJECT 1 MG EVERY WEEK BY SUBCUTANEOU S ROUTE. No Ozempic 1 mg/dose (2 mg/1.5 mL) subcutaneo us pen injector INJECT 1 MG EVERY WEEK BY SUBCUTANEO US ROUTE. [facility] pramipexole 0.75 mg tablet TAKE 1 TABLET BY MOUTH EVERYDAY AT BEDTIME pramipexole 0.75 mg tablet TAKE 1 TABLET BY MOUTH EVERYDAY AT BEDTIME No pramipexol e 0.75 mg tablet TAKE 1 TABLET BY MOUTH EVERYDAY AT BEDTIME [facility] pregabalin 300 mg capsule TAKE 1 CAPSULE BY MOUTH TWICE A DAY pregabalin 300 mg capsule TAKE 1 CAPSULE BY MOUTH TWICE A DAY No pregabalin 300 mg capsule TAKE 1 CAPSULE BY MOUTH TWICE A DAY [facility] pramipexole 0.5 mg tablet pramipexole 0.5 mg tablet No pramipexol e 0.5 mg tablet [facility] Accu-Chek Phillip Plus test strips USE 1 STRIP 3 TIMES A DAY Accu-Chek Phillip Plus test strips USE 1 STRIP 3 TIMES A DAY No Accu-Chek Phillip Plus test strips USE 1 STRIP 3 TIMES A DAY [facility] Arnuity Ellipta 200 mcg/actuati on powder for inhalation INHALE 1 PUFF BY MOUTH EVERY 24 HOURS PRN Arnuity Ellipta 200 mcg/actuati on powder for inhalation INHALE 1 PUFF BY MOUTH EVERY 24 HOURS PRN No Arnuity Ellipta 200 mcg/actuat ion powder for inhalation INHALE 1 PUFF BY MOUTH EVERY 24 HOURS PRN [facility] aspirin 81 mg chewable tablet Chew 1 tablet every day by oral route. aspirin 81 mg chewable tablet Chew 1 tablet every day by oral route. No 1 Q1D aspirin 81 mg chewable tablet Chew 1 tablet every day by oral route. [facility] Banophen 25 mg capsule TAKE 1 CAPSULE EVERY 6 HOURS BY ORAL ROUTE. As needed for Iching Banophen 25 mg capsule TAKE 1 CAPSULE EVERY 6 HOURS BY ORAL ROUTE. As needed for Iching No Banophen 25 mg capsule TAKE 1 CAPSULE EVERY 6 HOURS BY ORAL ROUTE. As needed for Iching [facility] BD Ultra-Fine Original Pen Needle 29 gauge x 1/2" USE 4 TIMES A DAY DIRECTED BD Ultra-Fine Original Pen Needle 29 gauge x 1/2" USE 4 TIMES A DAY DIRECTED No BD Ultra-Fine Original Pen Needle 29 gauge x 1/2" USE 4 TIMES A DAY DIRECTED [facility] doxycycline hyclate 100 mg capsule doxycycline hyclate 100 mg capsule No doxycyclin e hyclate 100 mg capsule [facility] doxycycline hyclate 100 mg tablet doxycycline hyclate 100 mg tablet No doxycyclin e hyclate 100 mg tablet [facility] Eliquis 5 mg tablet TAKE 1 TABLET BY MOUTH 2 (TWO) TIMES DAILY. INDICATIONS DEEP VEIN THROMBOSIS PREVENTION Eliquis 5 mg tablet TAKE 1 TABLET BY MOUTH 2 (TWO) TIMES DAILY. INDICATIONS DEEP VEIN THROMBOSIS PREVENTION No Eliquis 5 mg tablet TAKE 1 TABLET BY MOUTH 2 (TWO) TIMES DAILY. INDICATION S DEEP VEIN THROMBOSIS PREVENTION [facility] Farxiga 10 mg tablet TAKE 1 TABLET BY MOUTH EVERY DAY Farxiga 10 mg tablet TAKE 1 TABLET BY MOUTH EVERY DAY No Farxiga 10 mg tablet TAKE 1 TABLET BY MOUTH EVERY DAY [facility] midodrine 5 mg tablet TAKE 1 TABLET BY MOUTH THREE TIMES A DAY midodrine 5 mg tablet TAKE 1 TABLET BY MOUTH THREE TIMES A DAY No midodrine 5 mg tablet TAKE 1 TABLET BY MOUTH THREE TIMES A DAY [facility] Novolog Flexpen U-100 Insulin aspart 100 unit/mL (3 mL) subcutaneou s sliding scale: based on blood sugar Novolog Flexpen U-100 Insulin aspart 100 unit/mL (3 mL) subcutaneou s sliding scale: based on blood sugar No Novolog Flexpen U-100 Insulin aspart 100 unit/mL (3 mL) subcutaneo us sliding scale: based on blood sugar [facility] Nystop 100,000 unit/gram topical powder APPLY TO THE AFFECTED AREA(S) BY TOPICAL ROUTE 2 TIMES PER DAY Nystop 100,000 unit/gram topical powder APPLY TO THE AFFECTED AREA(S) BY TOPICAL ROUTE 2 TIMES PER DAY No Nystop 100,000 unit/gram topical powder APPLY TO THE AFFECTED AREA(S) BY TOPICAL ROUTE 2 TIMES PER DAY [facility] Ozempic 1 mg/dose (2 mg/1.5 mL) subcutaneou s pen injector INJECT 1 MG EVERY WEEK BY SUBCUTANEOU S ROUTE. Ozempic 1 mg/dose (2 mg/1.5 mL) subcutaneou s pen injector INJECT 1 MG EVERY WEEK BY SUBCUTANEOU S ROUTE. No Ozempic 1 mg/dose (2 mg/1.5 mL) subcutaneo us pen injector INJECT 1 MG EVERY WEEK BY SUBCUTANEO US ROUTE. [facility] Ozempic 1 mg/dose (4 mg/3 mL) subcutaneou s pen injector INJECT 1 MG EVERY WEEK SUBCUTANEOU SLY Ozempic 1 mg/dose (4 mg/3 mL) subcutaneou s pen injector INJECT 1 MG EVERY WEEK SUBCUTANEOU SLY No Ozempic 1 mg/dose (4 mg/3 mL) subcutaneo us pen injector INJECT 1 MG EVERY WEEK SUBCUTANEO USLY [facility] potassium chloride ER 10 mEq tablet,exte nded release(par t/cryst) Take 2 tablets every day by oral route. potassium chloride ER 10 mEq tablet,exte nded release(par t/cryst) Take 2 tablets every day by oral route. No 2 Q1D potassium chloride ER 10 mEq tablet,ext ended release(pa rt/cryst) Take 2 tablets every day by oral route. [facility] pramipexole 0.75 mg tablet TAKE 1 TABLET BY MOUTH EVERYDAY AT BEDTIME pramipexole 0.75 mg tablet TAKE 1 TABLET BY MOUTH EVERYDAY AT BEDTIME No pramipexol e 0.75 mg tablet TAKE 1 TABLET BY MOUTH EVERYDAY AT BEDTIME [facility] pregabalin 300 mg capsule TAKE 1 CAPSULE BY MOUTH TWICE A DAY pregabalin 300 mg capsule TAKE 1 CAPSULE BY MOUTH TWICE A DAY No pregabalin 300 mg capsule TAKE 1 CAPSULE BY MOUTH TWICE A DAY [facility] Tresiba FlexTouch U-100 insulin 100 unit/mL (3 mL) subcutaneou s pen INJECT 60 UNIT(S) EVERY DAY BY SUBCUTANEOU S ROUTE Tresiba FlexTouch U-100 insulin 100 unit/mL (3 mL) subcutaneou s pen INJECT 60 UNIT(S) EVERY DAY BY SUBCUTANEOU S ROUTE No Tresiba FlexTouch U-100 insulin 100 unit/mL (3 mL) subcutaneo us pen INJECT 60 UNIT(S) EVERY DAY BY SUBCUTANEO US ROUTE [facility] Miralax 17 gram/dose oral powder Take by oral route. Miralax 17 gram/dose oral powder Take by oral route. No Miralax 17 gram/dose oral powder Take by oral route. [facility] cefadroxil 500 mg capsule TAKE 2CAPSULES BY MOUTH DAILY FOR 9 DAYS. cefadroxil 500 mg capsule TAKE 2CAPSULES BY MOUTH DAILY FOR 9 DAYS. No cefadroxil 500 mg capsule TAKE 2CAPSULES BY MOUTH DAILY FOR 9 DAYS. [facility] triamcinolo ne acetonide 0.1 % topical ointment APPLY TO AREA(S) 2 (TWO) TIMES DAILY NEEDED FOR RASH. triamcinolo ne acetonide 0.1 % topical ointment APPLY TO AREA(S) 2 (TWO) TIMES DAILY NEEDED FOR RASH. No triamcinol one acetonide 0.1 % topical ointment APPLY TO AREA(S) 2 (TWO) TIMES DAILY NEEDED FOR RASH. [facility] Accu-Chek Phillip Plus test strips USE 1 STRIP 3 TIMES A DAY Accu-Chek Phillip Plus test strips USE 1 STRIP 3 TIMES A DAY No Accu-Chek Phillip Plus test strips USE 1 STRIP 3 TIMES A DAY [facility] aspirin 81 mg chewable tablet Chew 1 tablet every day by oral route. aspirin 81 mg chewable tablet Chew 1 tablet every day by oral route. No aspirin 81 mg chewable tablet Chew 1 tablet every day by oral route. [facility] Banophen 25 mg capsule TAKE 1 CAPSULE EVERY 6 HOURS BY ORAL ROUTE. As needed for Iching Banophen 25 mg capsule TAKE 1 CAPSULE EVERY 6 HOURS BY ORAL ROUTE. As needed for Iching No Banophen 25 mg capsule TAKE 1 CAPSULE EVERY 6 HOURS BY ORAL ROUTE. As needed for Iching [facility] BD Ultra-Fine Original Pen Needle 29 gauge x 1/2" USE 4 TIMES A DAY DIRECTED BD Ultra-Fine Original Pen Needle 29 gauge x 1/2" USE 4 TIMES A DAY DIRECTED No BD Ultra-Fine Original Pen Needle 29 gauge x 1/2" USE 4 TIMES A DAY DIRECTED [facility] Eliquis 5 mg tablet TAKE 1 TABLET BY MOUTH 2 (TWO) TIMES DAILY. INDICATIONS : DVT PREVENTION Eliquis 5 mg tablet TAKE 1 TABLET BY MOUTH 2 (TWO) TIMES DAILY. INDICATIONS : DVT PREVENTION No Eliquis 5 mg tablet TAKE 1 TABLET BY MOUTH 2 (TWO) TIMES DAILY. INDICATION S: DVT PREVENTION [facility] Farxiga 10 mg tablet TAKE 1 TABLET BY MOUTH EVERY DAY Farxiga 10 mg tablet TAKE 1 TABLET BY MOUTH EVERY DAY No Farxiga 10 mg tablet TAKE 1 TABLET BY MOUTH EVERY DAY [facility] midodrine 5 mg tablet Take 1 tablet twice a day by oral route. midodrine 5 mg tablet Take 1 tablet twice a day by oral route. No 1 BID midodrine 5 mg tablet Take 1 tablet twice a day by oral route. [facility] Miralax 17 gram/dose oral powder Take by oral route. Miralax 17 gram/dose oral powder Take by oral route. No Miralax 17 gram/dose oral powder Take by oral route. [facility] mupirocin 2 % topical ointment APPLY TO AFFECTED AREA NEEDED DIRECTED mupirocin 2 % topical ointment APPLY TO AFFECTED AREA NEEDED DIRECTED No mupirocin 2 % topical ointment APPLY TO AFFECTED AREA NEEDED DIRECTED [facility] Novolog Flexpen U-100 Insulin aspart 100 unit/mL (3 mL) subcutaneou s Inject 04-14-12 Novolog Flexpen U-100 Insulin aspart 100 unit/mL (3 mL) subcutaneou s Inject 04-14-12 No Novolog Flexpen U-100 Insulin aspart 100 unit/mL (3 mL) subcutaneo us Inject 04-14-12 [facility] Ozempic 1 mg/dose (4 mg/3 mL) subcutaneou s pen injector INJECT 1 MG SUBCUTANEOU SLY EVERY WEEK Ozempic 1 mg/dose (4 mg/3 mL) subcutaneou s pen injector INJECT 1 MG SUBCUTANEOU SLY EVERY WEEK No Ozempic 1 mg/dose (4 mg/3 mL) subcutaneo us pen injector INJECT 1 MG SUBCUTANEO USLY EVERY WEEK [facility] potassium chloride ER 10 mEq tablet,exte nded release(par t/cryst) TAKE 2 TABLETS BY MOUTH EVERY DAY potassium chloride ER 10 mEq tablet,exte nded release(par t/cryst) TAKE 2 TABLETS BY MOUTH EVERY DAY No potassium chloride ER 10 mEq tablet,ext ended release(pa rt/cryst) TAKE 2 TABLETS BY MOUTH EVERY DAY [facility] pramipexole 0.75 mg tablet Take 1 tablet every day by oral route. pramipexole 0.75 mg tablet Take 1 tablet every day by oral route. No 1 Q1D pramipexol e 0.75 mg tablet Take 1 tablet every day by oral route. [facility] Tresiba FlexTouch U-100 insulin 100 unit/mL (3 mL) subcutaneou s pen INJECT 70 UNITS UNDER THE SKIN ONCE DAILY Tresiba FlexTouch U-100 insulin 100 unit/mL (3 mL) subcutaneou s pen INJECT 70 UNITS UNDER THE SKIN ONCE DAILY No Tresiba FlexTouch U-100 insulin 100 unit/mL (3 mL) subcutaneo us pen INJECT 70 UNITS UNDER THE SKIN ONCE DAILY [facility] triamcinolo ne acetonide 0.1 % topical ointment APPLY TO AREA(S) 2 (TWO) TIMES DAILY NEEDED FOR RASH. triamcinolo ne acetonide 0.1 % topical ointment APPLY TO AREA(S) 2 (TWO) TIMES DAILY NEEDED FOR RASH. No triamcinol one acetonide 0.1 % topical ointment APPLY TO AREA(S) 2 (TWO) TIMES DAILY NEEDED FOR RASH. [facility] Accu-Chek Phillip Plus test strips USE 1 STRIP 3 TIMES A DAY Accu-Chek Phillip Plus test strips USE 1 STRIP 3 TIMES A DAY No Accu-Chek Phillip Plus test strips USE 1 STRIP 3 TIMES A DAY [facility] Arnuity Ellipta 200 mcg/actuati on powder for inhalation 1 puff PO qd Arnuity Ellipta 200 mcg/actuati on powder for inhalation 1 puff PO qd No Arnuity Ellipta 200 mcg/actuat ion powder for inhalation 1 puff PO qd [facility] Immunizations Ordered Immunization Name Filled Immunization Name Date Status Comments Source Influenza Virus Vaccine,quad Im,preserve Free 2022-05-10 00:00:00 Completed [facility] Influenza Virus Vaccine,quad Im,preserve Free 2022-05-10 00:00:00 Completed [facility] Influenza Virus Vaccine,quad Im,preserve Free 2022-05-10 00:00:00 Completed [facility] Influenza Virus Vaccine,quad Im,preserve Free 2022-05-10 00:00:00 Completed [facility] Influenza Virus Vaccine,quad Im,preserve Free 2022-05-10 00:00:00 Completed [facility] Influenza Virus Vaccine,quad Im,preserve Free 2022-05-10 00:00:00 Completed [facility] Influenza Virus Vaccine,quad Im,preserve Free 2022-05-10 00:00:00 Completed [facility] Influenza Virus Vaccine,quad Im,preserve Free 2022-05-10 00:00:00 Completed [facility] Influenza Virus Vaccine,quad Im,preserve Free 2022-05-10 00:00:00 Completed [facility] Influenza Virus Vaccine,quad Im,preserve Free 2022-05-10 00:00:00 Completed [facility] Influenza Virus Vaccine,quad Im,preserve Free 2022-05-10 00:00:00 Completed [facility] Influenza Virus Vaccine,quad Im,preserve Free 2022-05-10 00:00:00 Completed [facility] Influenza Virus Vaccine,quad Im,preserve Free 2022-05-10 00:00:00 Completed [facility] Influenza Virus Vaccine,quad Im,preserve Free 2022-05-10 00:00:00 Completed [facility] Influenza Virus Vaccine,quad Im,preserve Free 2022-05-10 00:00:00 Completed [facility] Influenza Virus Vaccine,quad Im,preserve Free 2022-05-10 00:00:00 Completed [facility] Influenza Virus Vaccine,quad Im,preserve Free 2022-05-10 00:00:00 Completed [facility] Influenza Virus Vaccine,quad Im,preserve Free 2022-05-10 00:00:00 Completed [facility] Influenza Virus Vaccine,quad Im,preserve Free 2022-05-10 00:00:00 Completed [facility] Influenza Virus Vaccine,quad Im,preserve Free 2022-05-10 00:00:00 Completed [facility] Influenza Virus Vaccine,quad Im,preserve Free 2022-05-10 00:00:00 Completed [facility] Influenza Virus Vaccine,quad Im,preserve Free 2022-05-10 00:00:00 Completed [facility] Influenza Virus Vaccine,quad Im,preserve Free 2022-05-10 00:00:00 Completed [facility] Influenza Virus Vaccine,quad Im,preserve Free 2022-05-10 00:00:00 Completed [facility] Influenza Virus Vaccine,quad Im,preserve Free 2022-05-10 00:00:00 Completed [facility] Influenza Virus Vaccine,quad Im,preserve Free 2022-05-10 00:00:00 Completed [facility] Influenza Virus Vaccine,quad Im,preserve Free 2022-05-10 00:00:00 Completed [facility] Influenza Virus Vaccine,quad Im,preserve Free 2022-05-10 00:00:00 Completed [facility] Influenza Virus Vaccine,quad Im,preserve Free 2022-05-10 00:00:00 Completed [facility] Influenza Virus Vaccine,quad Im,preserve Free 2022-05-10 00:00:00 Completed [facility] Influenza Virus Vaccine,quad Im,preserve Free 2022-05-10 00:00:00 Completed [facility] Influenza Virus Vaccine,quad Im,preserve Free 2022-05-10 00:00:00 Completed [facility] Influenza Virus Vaccine,quad Im,preserve Free 2022-05-10 00:00:00 Completed [facility] Influenza Virus Vaccine,quad Im,preserve Free 2022-05-10 00:00:00 Completed [facility] Influenza Virus Vaccine,quad Im,preserve Free 2022-05-10 00:00:00 Completed [facility] Influenza Virus Vaccine,quad Im,preserve Free 2022-05-10 00:00:00 Completed [facility] Influenza Virus Vaccine,quad Im,preserve Free 2022-05-10 00:00:00 Completed [facility] Influenza Virus Vaccine,quad Im,preserve Free 2022-05-10 00:00:00 Completed [facility] Influenza Virus Vaccine,quad Im,preserve Free 2022-05-10 00:00:00 Completed [facility] Influenza Virus Vaccine,quad Im,preserve Free 2022-05-10 00:00:00 Completed [facility] Influenza Virus Vaccine,quad Im,preserve Free 2022-05-10 00:00:00 Completed [facility] Influenza Virus Vaccine,quad Im,preserve Free 2022-05-10 00:00:00 Completed [facility] Influenza Virus Vaccine,quad Im,preserve Free 2022-05-10 00:00:00 Completed [facility] Influenza Virus Vaccine,quad Im,preserve Free 2022-05-10 00:00:00 Completed [facility] Influenza Virus Vaccine,quad Im,preserve Free 2022-05-10 00:00:00 Completed [facility] Influenza Virus Vaccine,quad Im,preserve Free 2022-05-10 00:00:00 Completed [facility] Influenza Virus Vaccine,quad Im,preserve Free 2022-05-10 00:00:00 Completed [facility] Influenza Virus Vaccine,quad Im,preserve Free 2022-05-10 00:00:00 Completed [facility] Influenza Virus Vaccine,quad Im,preserve Free 2022-05-10 00:00:00 Completed [facility] Influenza Virus Vaccine,quad Im,preserve Free 2022-05-10 00:00:00 Completed [facility] Influenza Virus Vaccine,quad Im,preserve Free 2022-05-10 00:00:00 Completed [facility] Influenza Virus Vaccine,quad Im,preserve Free 2022-05-10 00:00:00 Completed [facility] Influenza Virus Vaccine,quad Im,preserve Free 2022-05-10 00:00:00 Completed [facility] Influenza Virus Vaccine,quad Im,preserve Free 2022-05-10 00:00:00 Completed [facility] Influenza Virus Vaccine,quad Im,preserve Free 2022-05-10 00:00:00 Completed [facility] Influenza Virus Vaccine,quad Im,preserve Free 2022-05-10 00:00:00 Completed [facility] Influenza Virus Vaccine,quad Im,preserve Free 2022-05-10 00:00:00 Completed [facility] Influenza Virus Vaccine,quad Im,preserve Free 2022-05-10 00:00:00 Completed [facility] Influenza Virus Vaccine,quad Im,preserve Free 2022-05-10 00:00:00 Completed [facility] Influenza Virus Vaccine,quad Im,preserve Free 2022-05-10 00:00:00 Completed [facility] Influenza Virus Vaccine,quad Im,preserve Free 2022-05-10 00:00:00 Completed [facility] Influenza Virus Vaccine,quad Im,preserve Free 2022-05-10 00:00:00 Completed [facility] Influenza Virus Vaccine,quad Im,preserve Free 2022-05-10 00:00:00 Completed [facility] Influenza Virus Vaccine,quad Im,preserve Free 2022-05-10 00:00:00 Completed [facility] Influenza Virus Vaccine,quad Im,preserve Free 2022-05-10 00:00:00 Completed [facility] Influenza Virus Vaccine,quad Im,preserve Free 2022-05-10 00:00:00 Completed [facility] Influenza Virus Vaccine,quad Im,preserve Free 2022-05-10 00:00:00 Completed [facility] Influenza Virus Vaccine,quad Im,preserve Free 2022-05-10 00:00:00 Completed [facility] Influenza Virus Vaccine,quad Im,preserve Free 2022-05-10 00:00:00 Completed [facility] Influenza Virus Vaccine,quad Im,preserve Free 2022-05-10 00:00:00 Completed [facility] Influenza Virus Vaccine,quad Im,preserve Free 2022-05-10 00:00:00 Completed [facility] Influenza Virus Vaccine,quad Im,preserve Free 2022-05-10 00:00:00 Completed [facility] Influenza Virus Vaccine,quad Im,preserve Free 2022-05-10 00:00:00 Completed [facility] Influenza Virus Vaccine,quad Im,preserve Free 2022-05-10 00:00:00 Completed [facility] Influenza Virus Vaccine,quad Im,preserve Free 2022-05-10 00:00:00 Completed [facility] Influenza Virus Vaccine,quad Im,preserve Free 2022-05-10 00:00:00 Completed [facility] Influenza Virus Vaccine,quad Im,preserve Free 2022-05-10 00:00:00 Completed [facility] Influenza Virus Vaccine,quad Im,preserve Free 2022-05-10 00:00:00 Completed [facility] Influenza Virus Vaccine,quad Im,preserve Free 2022-05-10 00:00:00 Completed [facility] Influenza Virus Vaccine,quad Im,preserve Free 2022-05-10 00:00:00 Completed [facility] Influenza Virus Vaccine,quad Im,preserve Free 2022-05-10 00:00:00 Completed [facility] Influenza Virus Vaccine,quad Im,preserve Free 2022-05-10 00:00:00 Completed [facility] Influenza Virus Vaccine,quad Im,preserve Free 2022-05-10 00:00:00 Completed [facility] Influenza Virus Vaccine,quad Im,preserve Free 2022-05-10 00:00:00 Completed [facility] Influenza Virus Vaccine,quad Im,preserve Free 2022-05-10 00:00:00 Completed [facility] Influenza Virus Vaccine,quad Im,preserve Free 2022-05-10 00:00:00 Completed [facility] Influenza Virus Vaccine,quad Im,preserve Free 2022-05-10 00:00:00 Completed [facility] Influenza Virus Vaccine,quad Im,preserve Free 2022-05-10 00:00:00 Completed [facility] Influenza Virus Vaccine,quad Im,preserve Free 2022-05-10 00:00:00 Completed [facility] Influenza Virus Vaccine,quad Im,preserve Free 2022-05-10 00:00:00 Completed [facility] Influenza Virus Vaccine,quad Im,preserve Free 2022-05-10 00:00:00 Completed [facility] Influenza Virus Vaccine,quad Im,preserve Free 2022-05-10 00:00:00 Completed [facility] Influenza Virus Vaccine,quad Im,preserve Free 2022-05-10 00:00:00 Completed [facility] Influenza Virus Vaccine,quad Im,preserve Free 2022-05-10 00:00:00 Completed [facility] Influenza Virus Vaccine,quad Im,preserve Free 2022-05-10 00:00:00 Completed [facility] Influenza Virus Vaccine,quad Im,preserve Free 2022-05-10 00:00:00 Completed [facility] Influenza Virus Vaccine,quad Im,preserve Free 2022-05-10 00:00:00 Completed [facility] Influenza Virus Vaccine,quad Im,preserve Free 2022-05-10 00:00:00 Completed [facility] Influenza Virus Vaccine,quad Im,preserve Free 2022-05-10 00:00:00 Completed [facility] Influenza Virus Vaccine,quad Im,preserve Free 2022-05-10 00:00:00 Completed [facility] Influenza Virus Vaccine,quad Im,preserve Free 2022-05-10 00:00:00 Completed [facility] Influenza Virus Vaccine,quad Im,preserve Free 2022-05-10 00:00:00 Completed [facility] Influenza Virus Vaccine,quad Im,preserve Free 2022-05-10 00:00:00 Completed [facility] Influenza Virus Vaccine,quad Im,preserve Free 2022-05-10 00:00:00 Completed [facility] Influenza Virus Vaccine,quad Im,preserve Free 65+ 2022-05-10 00:00:00 Completed [facility] Influenza Virus Vaccine,quad Im,preserve Free 65+ 2022-05-10 00:00:00 Completed [facility] Influenza Virus Vaccine,quad Im,preserve Free 65+ 2022-05-10 00:00:00 Completed [facility] Influenza Virus Vaccine,quad Im,preserve Free 65+ 2022-05-10 00:00:00 Completed [facility] Influenza Virus Vaccine,quad Im,preserve Free 65+ 2022-05-10 00:00:00 Completed [facility] Influenza Virus Vaccine,quad Im,preserve Free 65+ 2022-05-10 00:00:00 Completed [facility] Influenza Virus Vaccine,quad Im,preserve Free 65+ 2022-05-10 00:00:00 Completed [facility] Influenza Virus Vaccine,quad Im,preserve Free 65+ 2022-05-10 00:00:00 Completed [facility] Influenza Virus Vaccine,quad Im,preserve Free 65+ 2022-05-10 00:00:00 Completed [facility] Influenza Virus Vaccine,quad Im,preserve Free 65+ 2022-05-10 00:00:00 Completed [facility] Influenza Virus Vaccine,quad Im,preserve Free 65+ 2022-05-10 00:00:00 Completed [facility] Influenza Virus Vaccine,quad Im,preserve Free 65+ (FLUAD) 2022-05-10 00:00:00 Completed [facility] Influenza Virus Vaccine,quad Im,preserve Free 65+ (FLUAD) 2022-05-10 00:00:00 Completed [facility] Influenza Virus Vaccine,quad Im,preserve Free 65+ (FLUAD) 2022-05-10 00:00:00 Completed [facility] Influenza Virus Vaccine,quad Im,preserve Free 65+ (FLUAD) 2022-05-10 00:00:00 Completed [facility] Influenza Virus Vaccine,quad Im,preserve Free 65+ (FLUAD) 2022-05-10 00:00:00 Completed [facility] Influenza Virus Vaccine,quad Im,preserve Free 65+ (FLUAD) 2022-05-10 00:00:00 Completed [facility] Influenza Virus Vaccine,quad Im,preserve Free 65+ (FLUAD) 2022-05-10 00:00:00 Completed [facility] Influenza Virus Vaccine,quad Im,preserve Free 65+ (FLUAD) 2022-05-10 00:00:00 Completed [facility] Influenza Virus Vaccine,quad Im,preserve Free 65+ (FLUAD) 2022-05-10 00:00:00 Completed [facility] Influenza Virus Vaccine,quad Im,preserve Free 65+ (FLUAD) 2022-05-10 00:00:00 Completed [facility] Influenza Virus Vaccine,quad Im,preserve Free 65+ (FLUAD) 2022-05-10 00:00:00 Completed [facility] SARS-COV-2 COVID-19 UNSPECIFIED VACCINE 2020-09-29 00:00:00 Completed [facility] SARS-COV-2 COVID-19 UNSPECIFIED VACCINE 2020-09-29 00:00:00 Completed [facility] SARS-COV-2 COVID-19 UNSPECIFIED VACCINE 2020-09-29 00:00:00 Completed [facility] SARS-COV-2 COVID-19 UNSPECIFIED VACCINE 2020-09-29 00:00:00 Completed [facility] SARS-COV-2 COVID-19 UNSPECIFIED VACCINE 2020-09-29 00:00:00 Completed [facility] SARS-COV-2 COVID-19 UNSPECIFIED VACCINE 2020-09-29 00:00:00 Completed [facility] SARS-COV-2 COVID-19 UNSPECIFIED VACCINE 2020-09-29 00:00:00 Completed [facility] SARS-COV-2 COVID-19 UNSPECIFIED VACCINE 2020-09-29 00:00:00 Completed [facility] SARS-COV-2 COVID-19 UNSPECIFIED VACCINE 2020-09-29 00:00:00 Completed [facility] SARS-COV-2 COVID-19 UNSPECIFIED VACCINE 2020-09-29 00:00:00 Completed [facility] SARS-COV-2 COVID-19 UNSPECIFIED VACCINE 2020-09-29 00:00:00 Completed [facility] SARS-COV-2 COVID-19 UNSPECIFIED VACCINE 2020-09-29 00:00:00 Completed [facility] SARS-COV-2 COVID-19 UNSPECIFIED VACCINE 2020-09-29 00:00:00 Completed [facility] SARS-COV-2 COVID-19 UNSPECIFIED VACCINE 2020-09-29 00:00:00 Completed [facility] SARS-COV-2 COVID-19 UNSPECIFIED VACCINE 2020-09-29 00:00:00 Completed [facility] SARS-COV-2 COVID-19 UNSPECIFIED VACCINE 2020-09-29 00:00:00 Completed [facility] SARS-COV-2 COVID-19 UNSPECIFIED VACCINE 2020-09-29 00:00:00 Completed [facility] SARS-COV-2 COVID-19 UNSPECIFIED VACCINE 2020-09-29 00:00:00 Completed [facility] SARS-COV-2 COVID-19 UNSPECIFIED VACCINE 2020-09-29 00:00:00 Completed [facility] SARS-COV-2 COVID-19 UNSPECIFIED VACCINE 2020-09-29 00:00:00 Completed [facility] SARS-COV-2 COVID-19 UNSPECIFIED VACCINE 2020-09-29 00:00:00 Completed [facility] SARS-COV-2 COVID-19 UNSPECIFIED VACCINE 2020-09-29 00:00:00 Completed [facility] SARS-COV-2 COVID-19 UNSPECIFIED VACCINE 2020-09-29 00:00:00 Completed [facility] SARS-COV-2 COVID-19 UNSPECIFIED VACCINE 2020-09-29 00:00:00 Completed [facility] SARS-COV-2 COVID-19 UNSPECIFIED VACCINE 2020-09-29 00:00:00 Completed [facility] SARS-COV-2 COVID-19 UNSPECIFIED VACCINE 2020-09-29 00:00:00 Completed [facility] SARS-COV-2 COVID-19 UNSPECIFIED VACCINE 2020-09-29 00:00:00 Completed [facility] SARS-COV-2 COVID-19 UNSPECIFIED VACCINE 2020-09-29 00:00:00 Completed [facility] SARS-COV-2 COVID-19 UNSPECIFIED VACCINE 2020-09-29 00:00:00 Completed [facility] SARS-COV-2 COVID-19 UNSPECIFIED VACCINE 2020-09-29 00:00:00 Completed [facility] SARS-COV-2 COVID-19 UNSPECIFIED VACCINE 2020-09-29 00:00:00 Completed [facility] SARS-COV-2 COVID-19 UNSPECIFIED VACCINE 2020-09-29 00:00:00 Completed [facility] SARS-COV-2 COVID-19 UNSPECIFIED VACCINE 2020-09-29 00:00:00 Completed [facility] SARS-COV-2 COVID-19 UNSPECIFIED VACCINE 2020-09-29 00:00:00 Completed [facility] SARS-COV-2 COVID-19 UNSPECIFIED VACCINE 2020-09-29 00:00:00 Completed [facility] SARS-COV-2 COVID-19 UNSPECIFIED VACCINE 2020-09-29 00:00:00 Completed [facility] SARS-COV-2 COVID-19 UNSPECIFIED VACCINE 2020-09-29 00:00:00 Completed [facility] SARS-COV-2 COVID-19 UNSPECIFIED VACCINE 2020-09-29 00:00:00 Completed [facility] SARS-COV-2 COVID-19 UNSPECIFIED VACCINE 2020-09-29 00:00:00 Completed [facility] SARS-COV-2 COVID-19 UNSPECIFIED VACCINE 2020-09-29 00:00:00 Completed [facility] SARS-COV-2 COVID-19 UNSPECIFIED VACCINE 2020-09-29 00:00:00 Completed [facility] SARS-COV-2 COVID-19 UNSPECIFIED VACCINE 2020-09-29 00:00:00 Completed [facility] SARS-COV-2 COVID-19 UNSPECIFIED VACCINE 2020-09-29 00:00:00 Completed [facility] SARS-COV-2 COVID-19 UNSPECIFIED VACCINE 2020-09-29 00:00:00 Completed [facility] SARS-COV-2 COVID-19 UNSPECIFIED VACCINE 2020-09-29 00:00:00 Completed [facility] SARS-COV-2 COVID-19 UNSPECIFIED VACCINE 2020-09-29 00:00:00 Completed [facility] SARS-COV-2 COVID-19 UNSPECIFIED VACCINE 2020-09-29 00:00:00 Completed [facility] SARS-COV-2 COVID-19 UNSPECIFIED VACCINE 2020-09-29 00:00:00 Completed [facility] SARS-COV-2 COVID-19 UNSPECIFIED VACCINE 2020-09-29 00:00:00 Completed [facility] SARS-COV-2 COVID-19 UNSPECIFIED VACCINE 2020-09-29 00:00:00 Completed [facility] SARS-COV-2 COVID-19 UNSPECIFIED VACCINE 2020-09-29 00:00:00 Completed [facility] SARS-COV-2 COVID-19 UNSPECIFIED VACCINE 2020-09-29 00:00:00 Completed [facility] SARS-COV-2 COVID-19 UNSPECIFIED VACCINE 2020-09-29 00:00:00 Completed [facility] SARS-COV-2 COVID-19 UNSPECIFIED VACCINE 2020-09-29 00:00:00 Completed [facility] SARS-COV-2 COVID-19 UNSPECIFIED VACCINE 2020-09-29 00:00:00 Completed [facility] SARS-COV-2 COVID-19 UNSPECIFIED VACCINE 2020-09-29 00:00:00 Completed [facility] SARS-COV-2 COVID-19 UNSPECIFIED VACCINE 2020-09-29 00:00:00 Completed [facility] SARS-COV-2 COVID-19 UNSPECIFIED VACCINE 2020-09-29 00:00:00 Completed [facility] SARS-COV-2 COVID-19 UNSPECIFIED VACCINE 2020-09-29 00:00:00 Completed [facility] SARS-COV-2 COVID-19 UNSPECIFIED VACCINE 2020-09-29 00:00:00 Completed [facility] SARS-COV-2 COVID-19 UNSPECIFIED VACCINE 2020-09-29 00:00:00 Completed [facility] SARS-COV-2 COVID-19 UNSPECIFIED VACCINE 2020-09-29 00:00:00 Completed [facility] SARS-COV-2 COVID-19 UNSPECIFIED VACCINE 2020-09-29 00:00:00 Completed [facility] SARS-COV-2 COVID-19 UNSPECIFIED VACCINE 2020-09-29 00:00:00 Completed [facility] SARS-COV-2 COVID-19 UNSPECIFIED VACCINE 2020-09-29 00:00:00 Completed [facility] SARS-COV-2 COVID-19 UNSPECIFIED VACCINE 2020-09-29 00:00:00 Completed [facility] SARS-COV-2 COVID-19 UNSPECIFIED VACCINE 2020-09-29 00:00:00 Completed [facility] SARS-COV-2 COVID-19 UNSPECIFIED VACCINE 2020-09-29 00:00:00 Completed [facility] SARS-COV-2 COVID-19 UNSPECIFIED VACCINE 2020-09-29 00:00:00 Completed [facility] SARS-COV-2 COVID-19 UNSPECIFIED VACCINE 2020-09-29 00:00:00 Completed [facility] SARS-COV-2 COVID-19 UNSPECIFIED VACCINE 2020-09-29 00:00:00 Completed [facility] SARS-COV-2 COVID-19 UNSPECIFIED VACCINE 2020-09-29 00:00:00 Completed [facility] SARS-COV-2 COVID-19 UNSPECIFIED VACCINE 2020-09-29 00:00:00 Completed [facility] SARS-COV-2 COVID-19 UNSPECIFIED VACCINE 2020-09-29 00:00:00 Completed [facility] SARS-COV-2 COVID-19 UNSPECIFIED VACCINE 2020-09-29 00:00:00 Completed [facility] SARS-COV-2 COVID-19 UNSPECIFIED VACCINE 2020-09-29 00:00:00 Completed [facility] SARS-COV-2 COVID-19 UNSPECIFIED VACCINE 2020-09-29 00:00:00 Completed [facility] SARS-COV-2 COVID-19 UNSPECIFIED VACCINE 2020-09-29 00:00:00 Completed [facility] SARS-COV-2 COVID-19 UNSPECIFIED VACCINE 2020-09-29 00:00:00 Completed [facility] SARS-COV-2 COVID-19 UNSPECIFIED VACCINE 2020-09-29 00:00:00 Completed [facility] SARS-COV-2 COVID-19 UNSPECIFIED VACCINE 2020-09-29 00:00:00 Completed [facility] SARS-COV-2 COVID-19 UNSPECIFIED VACCINE 2020-09-29 00:00:00 Completed [facility] SARS-COV-2 COVID-19 UNSPECIFIED VACCINE 2020-09-29 00:00:00 Completed [facility] SARS-COV-2 COVID-19 UNSPECIFIED VACCINE 2020-09-29 00:00:00 Completed [facility] SARS-COV-2 COVID-19 UNSPECIFIED VACCINE 2020-09-29 00:00:00 Completed [facility] SARS-COV-2 COVID-19 UNSPECIFIED VACCINE 2020-09-29 00:00:00 Completed [facility] SARS-COV-2 COVID-19 UNSPECIFIED VACCINE 2020-09-29 00:00:00 Completed [facility] SARS-COV-2 COVID-19 UNSPECIFIED VACCINE 2020-09-29 00:00:00 Completed [facility] SARS-COV-2 COVID-19 UNSPECIFIED VACCINE 2020-09-29 00:00:00 Completed [facility] SARS-COV-2 COVID-19 UNSPECIFIED VACCINE 2020-09-29 00:00:00 Completed [facility] SARS-COV-2 COVID-19 VACCINE - (MODERNA) 2020-09-29 00:00:00 Completed [facility] SARS-COV-2 COVID-19 UNSPECIFIED VACCINE 2020-09-29 00:00:00 Completed [facility] SARS-COV-2 COVID-19 VACCINE - (MODERNA) 2020-09-29 00:00:00 Completed [facility] SARS-COV-2 COVID-19 UNSPECIFIED VACCINE 2020-09-29 00:00:00 Completed [facility] SARS-COV-2 COVID-19 VACCINE - (MODERNA) 2020-09-29 00:00:00 Completed [facility] SARS-COV-2 COVID-19 UNSPECIFIED VACCINE 2020-09-29 00:00:00 Completed [facility] SARS-COV-2 COVID-19 VACCINE - (MODERNA) 2020-09-29 00:00:00 Completed [facility] SARS-COV-2 COVID-19 UNSPECIFIED VACCINE 2020-09-29 00:00:00 Completed [facility] SARS-COV-2 COVID-19 VACCINE - (MODERNA) 2020-09-29 00:00:00 Completed [facility] SARS-COV-2 COVID-19 UNSPECIFIED VACCINE 2020-09-29 00:00:00 Completed [facility] SARS-COV-2 COVID-19 VACCINE - (MODERNA) 2020-09-29 00:00:00 Completed [facility] SARS-COV-2 COVID-19 UNSPECIFIED VACCINE 2020-09-29 00:00:00 Completed [facility] SARS-COV-2 COVID-19 VACCINE - (MODERNA) 2020-09-29 00:00:00 Completed [facility] SARS-COV-2 COVID-19 UNSPECIFIED VACCINE 2020-09-29 00:00:00 Completed [facility] SARS-COV-2 COVID-19 VACCINE - (MODERNA) 2020-09-29 00:00:00 Completed [facility] SARS-COV-2 COVID-19 UNSPECIFIED VACCINE 2020-09-29 00:00:00 Completed [facility] SARS-COV-2 COVID-19 VACCINE - (MODERNA) 2020-09-29 00:00:00 Completed [facility] SARS-COV-2 COVID-19 UNSPECIFIED VACCINE 2020-09-29 00:00:00 Completed [facility] SARS-COV-2 COVID-19 VACCINE - (MODERNA) 2020-09-29 00:00:00 Completed [facility] SARS-COV-2 COVID-19 UNSPECIFIED VACCINE 2020-09-29 00:00:00 Completed [facility] SARS-COV-2 COVID-19 VACCINE - (MODERNA) 2020-09-29 00:00:00 Completed [facility] SARS-COV-2 COVID-19 UNSPECIFIED VACCINE 2020-09-29 00:00:00 Completed [facility] SARS-COV-2 COVID-19 VACCINE - (MODERNA) 2020-09-29 00:00:00 Completed [facility] SARS-COV-2 COVID-19 UNSPECIFIED VACCINE 2020-09-29 00:00:00 Completed [facility] SARS-COV-2 COVID-19 VACCINE - (MODERNA) 2020-09-29 00:00:00 Completed [facility] SARS-COV-2 COVID-19 UNSPECIFIED VACCINE 2020-09-29 00:00:00 Completed [facility] SARS-COV-2 COVID-19 VACCINE - (MODERNA) 2020-09-29 00:00:00 Completed [facility] SARS-COV-2 COVID-19 UNSPECIFIED VACCINE 2020-09-29 00:00:00 Completed [facility] SARS-COV-2 COVID-19 VACCINE - (MODERNA) 2020-09-29 00:00:00 Completed [facility] SARS-COV-2 COVID-19 UNSPECIFIED VACCINE 2020-09-29 00:00:00 Completed [facility] SARS-COV-2 COVID-19 VACCINE - (MODERNA) 2020-09-29 00:00:00 Completed [facility] SARS-COV-2 COVID-19 UNSPECIFIED VACCINE 2020-09-29 00:00:00 Completed [facility] SARS-COV-2 COVID-19 VACCINE - (MODERNA) 2020-09-29 00:00:00 Completed [facility] SARS-COV-2 COVID-19 UNSPECIFIED VACCINE 2020-09-29 00:00:00 Completed [facility] SARS-COV-2 COVID-19 VACCINE - (MODERNA) 2020-09-29 00:00:00 Completed [facility] SARS-COV-2 COVID-19 UNSPECIFIED VACCINE 2020-09-29 00:00:00 Completed [facility] SARS-COV-2 COVID-19 VACCINE - (MODERNA) 2020-09-29 00:00:00 Completed [facility] SARS-COV-2 COVID-19 UNSPECIFIED VACCINE 2020-09-29 00:00:00 Completed [facility] SARS-COV-2 COVID-19 VACCINE - (MODERNA) 2020-09-29 00:00:00 Completed [facility] SARS-COV-2 COVID-19 UNSPECIFIED VACCINE 2020-09-29 00:00:00 Completed [facility] SARS-COV-2 COVID-19 VACCINE - (MODERNA) 2020-09-29 00:00:00 Completed [facility] SARS-COV-2 COVID-19 UNSPECIFIED VACCINE 2020-09-29 00:00:00 Completed [facility] SARS-COV-2 COVID-19 VACCINE - (MODERNA) 2020-09-29 00:00:00 Completed [facility] SARS-COV-2 COVID-19 UNSPECIFIED VACCINE 2020-09-29 00:00:00 Completed [facility] SARS-COV-2 COVID-19 VACCINE - (MODERNA) 2020-09-29 00:00:00 Completed [facility] SARS-COV-2 COVID-19 UNSPECIFIED VACCINE 2020-09-29 00:00:00 Completed [facility] SARS-COV-2 COVID-19 VACCINE - (MODERNA) 2020-09-29 00:00:00 Completed [facility] SARS-COV-2 COVID-19 UNSPECIFIED VACCINE 2020-09-29 00:00:00 Completed [facility] SARS-COV-2 COVID-19 VACCINE - (MODERNA) 2020-09-29 00:00:00 Completed [facility] SARS-COV-2 COVID-19 UNSPECIFIED VACCINE 2020-09-29 00:00:00 Completed [facility] SARS-COV-2 COVID-19 VACCINE - (MODERNA) 2020-09-29 00:00:00 Completed [facility] SARS-COV-2 COVID-19 UNSPECIFIED VACCINE 2020-09-29 00:00:00 Completed [facility] SARS-COV-2 COVID-19 VACCINE - (MODERNA) 2020-09-29 00:00:00 Completed [facility] SARS-COV-2 COVID-19 UNSPECIFIED VACCINE 2020-09-29 00:00:00 Completed [facility] SARS-COV-2 COVID-19 VACCINE - (MODERNA) 2020-09-29 00:00:00 Completed [facility] SARS-COV-2 COVID-19 UNSPECIFIED VACCINE 2020-09-29 00:00:00 Completed [facility] SARS-COV-2 COVID-19 VACCINE - (MODERNA) 2020-09-29 00:00:00 Completed [facility] SARS-COV-2 COVID-19 UNSPECIFIED VACCINE 2020-09-29 00:00:00 Completed [facility] SARS-COV-2 COVID-19 VACCINE - (MODERNA) 2020-09-29 00:00:00 Completed [facility] SARS-COV-2 COVID-19 UNSPECIFIED VACCINE 2020-09-29 00:00:00 Completed [facility] SARS-COV-2 COVID-19 VACCINE - (MODERNA) 2020-09-29 00:00:00 Completed [facility] SARS-COV-2 COVID-19 UNSPECIFIED VACCINE 2020-09-29 00:00:00 Completed [facility] SARS-COV-2 COVID-19 VACCINE - (MODERNA) 2020-09-29 00:00:00 Completed [facility] SARS-COV-2 COVID-19 UNSPECIFIED VACCINE 2020-09-29 00:00:00 Completed [facility] SARS-COV-2 COVID-19 VACCINE - (MODERNA) 2020-09-29 00:00:00 Completed [facility] SARS-COV-2 COVID-19 UNSPECIFIED VACCINE 2020-09-29 00:00:00 Completed [facility] SARS-COV-2 COVID-19 VACCINE - (MODERNA) 2020-09-29 00:00:00 Completed [facility] SARS-COV-2 COVID-19 UNSPECIFIED VACCINE 2020-09-29 00:00:00 Completed [facility] SARS-COV-2 COVID-19 VACCINE - (MODERNA) 2020-09-29 00:00:00 Completed [facility] SARS-COV-2 COVID-19 UNSPECIFIED VACCINE 2020-09-29 00:00:00 Completed [facility] SARS-COV-2 COVID-19 VACCINE - (MODERNA) 2020-09-29 00:00:00 Completed [facility] SARS-COV-2 COVID-19 UNSPECIFIED VACCINE 2020-09-29 00:00:00 Completed [facility] SARS-COV-2 COVID-19 VACCINE - (MODERNA) 2020-09-29 00:00:00 Completed [facility] SARS-COV-2 COVID-19 UNSPECIFIED VACCINE 2020-09-29 00:00:00 Completed [facility] SARS-COV-2 COVID-19 VACCINE - (MODERNA) 2020-09-29 00:00:00 Completed [facility] SARS-COV-2 COVID-19 UNSPECIFIED VACCINE 2020-09-29 00:00:00 Completed [facility] SARS-COV-2 COVID-19 VACCINE - (MODERNA) 2020-09-29 00:00:00 Completed [facility] SARS-COV-2 COVID-19 UNSPECIFIED VACCINE 2020-09-29 00:00:00 Completed [facility] SARS-COV-2 COVID-19 VACCINE - (MODERNA) 2020-09-29 00:00:00 Completed [facility] SARS-COV-2 COVID-19 UNSPECIFIED VACCINE 2020-09-29 00:00:00 Completed [facility] SARS-COV-2 COVID-19 VACCINE - (MODERNA) 2020-09-29 00:00:00 Completed [facility] SARS-COV-2 COVID-19 UNSPECIFIED VACCINE 2020-09-29 00:00:00 Completed [facility] SARS-COV-2 COVID-19 VACCINE - (MODERNA) 2020-09-29 00:00:00 Completed [facility] SARS-COV-2 COVID-19 UNSPECIFIED VACCINE 2020-09-29 00:00:00 Completed [facility] SARS-COV-2 COVID-19 VACCINE - (MODERNA) 2020-09-29 00:00:00 Completed [facility] SARS-COV-2 COVID-19 UNSPECIFIED VACCINE 2020-09-29 00:00:00 Completed [facility] SARS-COV-2 COVID-19 VACCINE - (MODERNA) 2020-09-29 00:00:00 Completed [facility] SARS-COV-2 COVID-19 UNSPECIFIED VACCINE 2020-09-29 00:00:00 Completed [facility] SARS-COV-2 COVID-19 VACCINE - (MODERNA) 2020-09-29 00:00:00 Completed [facility] SARS-COV-2 COVID-19 UNSPECIFIED VACCINE 2020-09-29 00:00:00 Completed [facility] SARS-COV-2 COVID-19 VACCINE - (MODERNA) 2020-09-29 00:00:00 Completed [facility] SARS-COV-2 COVID-19 UNSPECIFIED VACCINE 2020-09-29 00:00:00 Completed [facility] SARS-COV-2 COVID-19 VACCINE - (MODERNA) 2020-09-29 00:00:00 Completed [facility] SARS-COV-2 COVID-19 UNSPECIFIED VACCINE 2020-09-29 00:00:00 Completed [facility] SARS-COV-2 COVID-19 VACCINE - (MODERNA) 2020-09-29 00:00:00 Completed [facility] SARS-COV-2 COVID-19 UNSPECIFIED VACCINE 2020-09-29 00:00:00 Completed [facility] SARS-COV-2 COVID-19 VACCINE - (MODERNA) 2020-09-29 00:00:00 Completed [facility] SARS-COV-2 COVID-19 UNSPECIFIED VACCINE 2020-09-29 00:00:00 Completed [facility] SARS-COV-2 COVID-19 VACCINE - (MODERNA) 2020-09-29 00:00:00 Completed [facility] SARS-COV-2 COVID-19 UNSPECIFIED VACCINE 2020-09-29 00:00:00 Completed [facility] SARS-COV-2 COVID-19 VACCINE - (MODERNA) 2020-09-29 00:00:00 Completed [facility] SARS-COV-2 COVID-19 UNSPECIFIED VACCINE 2020-09-29 00:00:00 Completed [facility] SARS-COV-2 COVID-19 VACCINE - (MODERNA) 2020-09-29 00:00:00 Completed [facility] SARS-COV-2 COVID-19 UNSPECIFIED VACCINE 2020-09-29 00:00:00 Completed [facility] SARS-COV-2 COVID-19 VACCINE - (MODERNA) 2020-09-29 00:00:00 Completed [facility] SARS-COV-2 COVID-19 UNSPECIFIED VACCINE 2020-09-29 00:00:00 Completed [facility] SARS-COV-2 COVID-19 VACCINE - (MODERNA) 2020-09-29 00:00:00 Completed [facility] SARS-COV-2 COVID-19 UNSPECIFIED VACCINE 2020-09-29 00:00:00 Completed [facility] SARS-COV-2 COVID-19 VACCINE - (MODERNA) 2020-09-29 00:00:00 Completed [facility] SARS-COV-2 COVID-19 UNSPECIFIED VACCINE 2020-09-29 00:00:00 Completed [facility] SARS-COV-2 COVID-19 VACCINE - (MODERNA) 2020-09-29 00:00:00 Completed [facility] SARS-COV-2 COVID-19 UNSPECIFIED VACCINE 2020-09-29 00:00:00 Completed [facility] SARS-COV-2 COVID-19 VACCINE - (MODERNA) 2020-09-29 00:00:00 Completed [facility] SARS-COV-2 COVID-19 UNSPECIFIED VACCINE 2020-09-29 00:00:00 Completed [facility] SARS-COV-2 COVID-19 VACCINE - (MODERNA) 2020-09-29 00:00:00 Completed [facility] SARS-COV-2 COVID-19 UNSPECIFIED VACCINE 2020-09-29 00:00:00 Completed [facility] SARS-COV-2 COVID-19 VACCINE - (MODERNA) 2020-09-29 00:00:00 Completed [facility] SARS-COV-2 COVID-19 UNSPECIFIED VACCINE 2020-09-29 00:00:00 Completed [facility] SARS-COV-2 COVID-19 VACCINE - (MODERNA) 2020-09-29 00:00:00 Completed [facility] SARS-COV-2 COVID-19 UNSPECIFIED VACCINE 2020-09-29 00:00:00 Completed [facility] SARS-COV-2 COVID-19 VACCINE - (MODERNA) 2020-09-29 00:00:00 Completed [facility] SARS-COV-2 COVID-19 UNSPECIFIED VACCINE 2020-09-29 00:00:00 Completed [facility] SARS-COV-2 COVID-19 VACCINE - (MODERNA) 2020-09-29 00:00:00 Completed [facility] SARS-COV-2 COVID-19 UNSPECIFIED VACCINE 2020-09-29 00:00:00 Completed [facility] SARS-COV-2 COVID-19 VACCINE - (MODERNA) 2020-09-29 00:00:00 Completed [facility] SARS-COV-2 COVID-19 UNSPECIFIED VACCINE 2020-09-29 00:00:00 Completed [facility] SARS-COV-2 COVID-19 VACCINE - (MODERNA) 2020-09-29 00:00:00 Completed [facility] SARS-COV-2 COVID-19 UNSPECIFIED VACCINE 2020-09-29 00:00:00 Completed [facility] SARS-COV-2 COVID-19 VACCINE - (MODERNA) 2020-09-29 00:00:00 Completed [facility] SARS-COV-2 COVID-19 UNSPECIFIED VACCINE 2020-09-29 00:00:00 Completed [facility] SARS-COV-2 COVID-19 VACCINE - (MODERNA) 2020-09-29 00:00:00 Completed [facility] SARS-COV-2 COVID-19 UNSPECIFIED VACCINE 2020-09-29 00:00:00 Completed [facility] SARS-COV-2 COVID-19 VACCINE - (MODERNA) 2020-09-29 00:00:00 Completed [facility] SARS-COV-2 COVID-19 UNSPECIFIED VACCINE 2020-09-29 00:00:00 Completed [facility] SARS-COV-2 COVID-19 VACCINE - (MODERNA) 2020-09-29 00:00:00 Completed [facility] SARS-COV-2 COVID-19 UNSPECIFIED VACCINE 2020-09-29 00:00:00 Completed [facility] SARS-COV-2 COVID-19 VACCINE - (MODERNA) 2020-09-29 00:00:00 Completed [facility] SARS-COV-2 COVID-19 UNSPECIFIED VACCINE 2020-09-29 00:00:00 Completed [facility] SARS-COV-2 COVID-19 VACCINE - (MODERNA) 2020-09-29 00:00:00 Completed [facility] SARS-COV-2 COVID-19 UNSPECIFIED VACCINE 2020-09-29 00:00:00 Completed [facility] SARS-COV-2 COVID-19 VACCINE - (MODERNA) 2020-09-29 00:00:00 Completed [facility] SARS-COV-2 COVID-19 UNSPECIFIED VACCINE 2020-09-29 00:00:00 Completed [facility] SARS-COV-2 COVID-19 VACCINE - (MODERNA) 2020-09-29 00:00:00 Completed [facility] SARS-COV-2 COVID-19 UNSPECIFIED VACCINE 2020-09-29 00:00:00 Completed [facility] SARS-COV-2 COVID-19 VACCINE - (MODERNA) 2020-09-29 00:00:00 Completed [facility] SARS-COV-2 COVID-19 UNSPECIFIED VACCINE 2020-09-29 00:00:00 Completed [facility] SARS-COV-2 COVID-19 VACCINE - (MODERNA) 2020-09-29 00:00:00 Completed [facility] SARS-COV-2 COVID-19 UNSPECIFIED VACCINE 2020-09-29 00:00:00 Completed [facility] SARS-COV-2 COVID-19 VACCINE - (MODERNA) 2020-09-29 00:00:00 Completed [facility] SARS-COV-2 (COVID-19) vaccine, UNSPECIFIED SARS-COV-2 (COVID-19) vaccine, UNSPECIFIED 2020-09-29 00:00:00 Completed [facility] SARS-COV-2 (COVID-19) vaccine, UNSPECIFIED SARS-COV-2 (COVID-19) vaccine, UNSPECIFIED 2020-09-29 00:00:00 Completed [facility] SARS-COV-2 (COVID-19) vaccine, UNSPECIFIED SARS-COV-2 (COVID-19) vaccine, UNSPECIFIED 2020-09-29 00:00:00 Completed [facility] SARS-COV-2 (COVID-19) vaccine, UNSPECIFIED SARS-COV-2 (COVID-19) vaccine, UNSPECIFIED 2020-09-29 00:00:00 Completed [facility] SARS-COV-2 (COVID-19) vaccine, UNSPECIFIED SARS-COV-2 (COVID-19) vaccine, UNSPECIFIED 2020-09-29 00:00:00 Completed [facility] SARS-COV-2 (COVID-19) vaccine, UNSPECIFIED SARS-COV-2 (COVID-19) vaccine, UNSPECIFIED 2020-09-29 00:00:00 Completed [facility] COVID-19 (SARS-COV-2) vaccine, unspecified COVID-19 (SARS-COV-2) vaccine, unspecified 2020-09-29 00:00:00 Completed [facility] COVID-19 (SARS-COV-2) vaccine, unspecified COVID-19 (SARS-COV-2) vaccine, unspecified 2020-09-29 00:00:00 Completed [facility] COVID-19 (SARS-COV-2) vaccine, unspecified COVID-19 (SARS-COV-2) vaccine, unspecified 2020-09-29 00:00:00 Completed [facility] COVID-19 (SARS-COV-2) vaccine, unspecified COVID-19 (SARS-COV-2) vaccine, unspecified 2020-09-29 00:00:00 Completed [facility] SARS-COV-2 COVID-19 UNSPECIFIED VACCINE 2020-08-29 00:00:00 Completed [facility] SARS-COV-2 COVID-19 UNSPECIFIED VACCINE 2020-08-29 00:00:00 Completed [facility] SARS-COV-2 COVID-19 UNSPECIFIED VACCINE 2020-08-29 00:00:00 Completed [facility] SARS-COV-2 COVID-19 UNSPECIFIED VACCINE 2020-08-29 00:00:00 Completed [facility] SARS-COV-2 COVID-19 UNSPECIFIED VACCINE 2020-08-29 00:00:00 Completed [facility] SARS-COV-2 COVID-19 UNSPECIFIED VACCINE 2020-08-29 00:00:00 Completed [facility] SARS-COV-2 COVID-19 UNSPECIFIED VACCINE 2020-08-29 00:00:00 Completed [facility] SARS-COV-2 COVID-19 UNSPECIFIED VACCINE 2020-08-29 00:00:00 Completed [facility] SARS-COV-2 COVID-19 UNSPECIFIED VACCINE 2020-08-29 00:00:00 Completed [facility] SARS-COV-2 COVID-19 UNSPECIFIED VACCINE 2020-08-29 00:00:00 Completed [facility] SARS-COV-2 COVID-19 UNSPECIFIED VACCINE 2020-08-29 00:00:00 Completed [facility] SARS-COV-2 COVID-19 UNSPECIFIED VACCINE 2020-08-29 00:00:00 Completed [facility] SARS-COV-2 COVID-19 UNSPECIFIED VACCINE 2020-08-29 00:00:00 Completed [facility] SARS-COV-2 COVID-19 UNSPECIFIED VACCINE 2020-08-29 00:00:00 Completed [facility] SARS-COV-2 COVID-19 UNSPECIFIED VACCINE 2020-08-29 00:00:00 Completed [facility] SARS-COV-2 COVID-19 UNSPECIFIED VACCINE 2020-08-29 00:00:00 Completed [facility] SARS-COV-2 COVID-19 UNSPECIFIED VACCINE 2020-08-29 00:00:00 Completed [facility] SARS-COV-2 COVID-19 UNSPECIFIED VACCINE 2020-08-29 00:00:00 Completed [facility] SARS-COV-2 COVID-19 UNSPECIFIED VACCINE 2020-08-29 00:00:00 Completed [facility] SARS-COV-2 COVID-19 UNSPECIFIED VACCINE 2020-08-29 00:00:00 Completed [facility] SARS-COV-2 COVID-19 UNSPECIFIED VACCINE 2020-08-29 00:00:00 Completed [facility] SARS-COV-2 COVID-19 UNSPECIFIED VACCINE 2020-08-29 00:00:00 Completed [facility] SARS-COV-2 COVID-19 UNSPECIFIED VACCINE 2020-08-29 00:00:00 Completed [facility] SARS-COV-2 COVID-19 UNSPECIFIED VACCINE 2020-08-29 00:00:00 Completed [facility] SARS-COV-2 COVID-19 UNSPECIFIED VACCINE 2020-08-29 00:00:00 Completed [facility] SARS-COV-2 COVID-19 UNSPECIFIED VACCINE 2020-08-29 00:00:00 Completed [facility] SARS-COV-2 COVID-19 UNSPECIFIED VACCINE 2020-08-29 00:00:00 Completed [facility] SARS-COV-2 COVID-19 UNSPECIFIED VACCINE 2020-08-29 00:00:00 Completed [facility] SARS-COV-2 COVID-19 UNSPECIFIED VACCINE 2020-08-29 00:00:00 Completed [facility] SARS-COV-2 COVID-19 UNSPECIFIED VACCINE 2020-08-29 00:00:00 Completed [facility] SARS-COV-2 COVID-19 UNSPECIFIED VACCINE 2020-08-29 00:00:00 Completed [facility] SARS-COV-2 COVID-19 UNSPECIFIED VACCINE 2020-08-29 00:00:00 Completed [facility] SARS-COV-2 COVID-19 UNSPECIFIED VACCINE 2020-08-29 00:00:00 Completed [facility] SARS-COV-2 COVID-19 UNSPECIFIED VACCINE 2020-08-29 00:00:00 Completed [facility] SARS-COV-2 COVID-19 UNSPECIFIED VACCINE 2020-08-29 00:00:00 Completed [facility] SARS-COV-2 COVID-19 UNSPECIFIED VACCINE 2020-08-29 00:00:00 Completed [facility] SARS-COV-2 COVID-19 UNSPECIFIED VACCINE 2020-08-29 00:00:00 Completed [facility] SARS-COV-2 COVID-19 UNSPECIFIED VACCINE 2020-08-29 00:00:00 Completed [facility] SARS-COV-2 COVID-19 UNSPECIFIED VACCINE 2020-08-29 00:00:00 Completed [facility] SARS-COV-2 COVID-19 UNSPECIFIED VACCINE 2020-08-29 00:00:00 Completed [facility] SARS-COV-2 COVID-19 UNSPECIFIED VACCINE 2020-08-29 00:00:00 Completed [facility] SARS-COV-2 COVID-19 UNSPECIFIED VACCINE 2020-08-29 00:00:00 Completed [facility] SARS-COV-2 COVID-19 UNSPECIFIED VACCINE 2020-08-29 00:00:00 Completed [facility] SARS-COV-2 COVID-19 UNSPECIFIED VACCINE 2020-08-29 00:00:00 Completed [facility] SARS-COV-2 COVID-19 UNSPECIFIED VACCINE 2020-08-29 00:00:00 Completed [facility] SARS-COV-2 COVID-19 UNSPECIFIED VACCINE 2020-08-29 00:00:00 Completed [facility] SARS-COV-2 COVID-19 UNSPECIFIED VACCINE 2020-08-29 00:00:00 Completed [facility] SARS-COV-2 COVID-19 UNSPECIFIED VACCINE 2020-08-29 00:00:00 Completed [facility] SARS-COV-2 COVID-19 UNSPECIFIED VACCINE 2020-08-29 00:00:00 Completed [facility] SARS-COV-2 COVID-19 UNSPECIFIED VACCINE 2020-08-29 00:00:00 Completed [facility] SARS-COV-2 COVID-19 UNSPECIFIED VACCINE 2020-08-29 00:00:00 Completed [facility] SARS-COV-2 COVID-19 UNSPECIFIED VACCINE 2020-08-29 00:00:00 Completed [facility] SARS-COV-2 COVID-19 UNSPECIFIED VACCINE 2020-08-29 00:00:00 Completed [facility] SARS-COV-2 COVID-19 UNSPECIFIED VACCINE 2020-08-29 00:00:00 Completed [facility] SARS-COV-2 COVID-19 UNSPECIFIED VACCINE 2020-08-29 00:00:00 Completed [facility] SARS-COV-2 COVID-19 UNSPECIFIED VACCINE 2020-08-29 00:00:00 Completed [facility] SARS-COV-2 COVID-19 UNSPECIFIED VACCINE 2020-08-29 00:00:00 Completed [facility] SARS-COV-2 COVID-19 UNSPECIFIED VACCINE 2020-08-29 00:00:00 Completed [facility] SARS-COV-2 COVID-19 UNSPECIFIED VACCINE 2020-08-29 00:00:00 Completed [facility] SARS-COV-2 COVID-19 UNSPECIFIED VACCINE 2020-08-29 00:00:00 Completed [facility] SARS-COV-2 COVID-19 UNSPECIFIED VACCINE 2020-08-29 00:00:00 Completed [facility] SARS-COV-2 COVID-19 UNSPECIFIED VACCINE 2020-08-29 00:00:00 Completed [facility] SARS-COV-2 COVID-19 UNSPECIFIED VACCINE 2020-08-29 00:00:00 Completed [facility] SARS-COV-2 COVID-19 UNSPECIFIED VACCINE 2020-08-29 00:00:00 Completed [facility] SARS-COV-2 COVID-19 UNSPECIFIED VACCINE 2020-08-29 00:00:00 Completed [facility] SARS-COV-2 COVID-19 UNSPECIFIED VACCINE 2020-08-29 00:00:00 Completed [facility] SARS-COV-2 COVID-19 UNSPECIFIED VACCINE 2020-08-29 00:00:00 Completed [facility] SARS-COV-2 COVID-19 UNSPECIFIED VACCINE 2020-08-29 00:00:00 Completed [facility] SARS-COV-2 COVID-19 UNSPECIFIED VACCINE 2020-08-29 00:00:00 Completed [facility] SARS-COV-2 COVID-19 UNSPECIFIED VACCINE 2020-08-29 00:00:00 Completed [facility] SARS-COV-2 COVID-19 UNSPECIFIED VACCINE 2020-08-29 00:00:00 Completed [facility] SARS-COV-2 COVID-19 UNSPECIFIED VACCINE 2020-08-29 00:00:00 Completed [facility] SARS-COV-2 COVID-19 UNSPECIFIED VACCINE 2020-08-29 00:00:00 Completed [facility] SARS-COV-2 COVID-19 UNSPECIFIED VACCINE 2020-08-29 00:00:00 Completed [facility] SARS-COV-2 COVID-19 UNSPECIFIED VACCINE 2020-08-29 00:00:00 Completed [facility] SARS-COV-2 COVID-19 UNSPECIFIED VACCINE 2020-08-29 00:00:00 Completed [facility] SARS-COV-2 COVID-19 UNSPECIFIED VACCINE 2020-08-29 00:00:00 Completed [facility] SARS-COV-2 COVID-19 UNSPECIFIED VACCINE 2020-08-29 00:00:00 Completed [facility] SARS-COV-2 COVID-19 UNSPECIFIED VACCINE 2020-08-29 00:00:00 Completed [facility] SARS-COV-2 COVID-19 UNSPECIFIED VACCINE 2020-08-29 00:00:00 Completed [facility] SARS-COV-2 COVID-19 UNSPECIFIED VACCINE 2020-08-29 00:00:00 Completed [facility] SARS-COV-2 COVID-19 UNSPECIFIED VACCINE 2020-08-29 00:00:00 Completed [facility] SARS-COV-2 COVID-19 UNSPECIFIED VACCINE 2020-08-29 00:00:00 Completed [facility] SARS-COV-2 COVID-19 UNSPECIFIED VACCINE 2020-08-29 00:00:00 Completed [facility] SARS-COV-2 COVID-19 UNSPECIFIED VACCINE 2020-08-29 00:00:00 Completed [facility] SARS-COV-2 COVID-19 UNSPECIFIED VACCINE 2020-08-29 00:00:00 Completed [facility] SARS-COV-2 COVID-19 UNSPECIFIED VACCINE 2020-08-29 00:00:00 Completed [facility] SARS-COV-2 COVID-19 UNSPECIFIED VACCINE 2020-08-29 00:00:00 Completed [facility] SARS-COV-2 COVID-19 UNSPECIFIED VACCINE 2020-08-29 00:00:00 Completed [facility] SARS-COV-2 COVID-19 UNSPECIFIED VACCINE 2020-08-29 00:00:00 Completed [facility] SARS-COV-2 COVID-19 VACCINE - (MODERNA) 2020-08-29 00:00:00 Completed [facility] SARS-COV-2 COVID-19 UNSPECIFIED VACCINE 2020-08-29 00:00:00 Completed [facility] SARS-COV-2 COVID-19 VACCINE - (MODERNA) 2020-08-29 00:00:00 Completed [facility] SARS-COV-2 COVID-19 UNSPECIFIED VACCINE 2020-08-29 00:00:00 Completed [facility] SARS-COV-2 COVID-19 VACCINE - (MODERNA) 2020-08-29 00:00:00 Completed [facility] SARS-COV-2 COVID-19 UNSPECIFIED VACCINE 2020-08-29 00:00:00 Completed [facility] SARS-COV-2 COVID-19 VACCINE - (MODERNA) 2020-08-29 00:00:00 Completed [facility] SARS-COV-2 COVID-19 UNSPECIFIED VACCINE 2020-08-29 00:00:00 Completed [facility] SARS-COV-2 COVID-19 VACCINE - (MODERNA) 2020-08-29 00:00:00 Completed [facility] SARS-COV-2 COVID-19 UNSPECIFIED VACCINE 2020-08-29 00:00:00 Completed [facility] SARS-COV-2 COVID-19 VACCINE - (MODERNA) 2020-08-29 00:00:00 Completed [facility] SARS-COV-2 COVID-19 UNSPECIFIED VACCINE 2020-08-29 00:00:00 Completed [facility] SARS-COV-2 COVID-19 VACCINE - (MODERNA) 2020-08-29 00:00:00 Completed [facility] SARS-COV-2 COVID-19 UNSPECIFIED VACCINE 2020-08-29 00:00:00 Completed [facility] SARS-COV-2 COVID-19 VACCINE - (MODERNA) 2020-08-29 00:00:00 Completed [facility] SARS-COV-2 COVID-19 UNSPECIFIED VACCINE 2020-08-29 00:00:00 Completed [facility] SARS-COV-2 COVID-19 VACCINE - (MODERNA) 2020-08-29 00:00:00 Completed [facility] SARS-COV-2 COVID-19 UNSPECIFIED VACCINE 2020-08-29 00:00:00 Completed [facility] SARS-COV-2 COVID-19 VACCINE - (MODERNA) 2020-08-29 00:00:00 Completed [facility] SARS-COV-2 COVID-19 UNSPECIFIED VACCINE 2020-08-29 00:00:00 Completed [facility] SARS-COV-2 COVID-19 VACCINE - (MODERNA) 2020-08-29 00:00:00 Completed [facility] SARS-COV-2 COVID-19 UNSPECIFIED VACCINE 2020-08-29 00:00:00 Completed [facility] SARS-COV-2 COVID-19 VACCINE - (MODERNA) 2020-08-29 00:00:00 Completed [facility] SARS-COV-2 COVID-19 UNSPECIFIED VACCINE 2020-08-29 00:00:00 Completed [facility] SARS-COV-2 COVID-19 VACCINE - (MODERNA) 2020-08-29 00:00:00 Completed [facility] SARS-COV-2 COVID-19 UNSPECIFIED VACCINE 2020-08-29 00:00:00 Completed [facility] SARS-COV-2 COVID-19 VACCINE - (MODERNA) 2020-08-29 00:00:00 Completed [facility] SARS-COV-2 COVID-19 UNSPECIFIED VACCINE 2020-08-29 00:00:00 Completed [facility] SARS-COV-2 COVID-19 VACCINE - (MODERNA) 2020-08-29 00:00:00 Completed [facility] SARS-COV-2 COVID-19 UNSPECIFIED VACCINE 2020-08-29 00:00:00 Completed [facility] SARS-COV-2 COVID-19 VACCINE - (MODERNA) 2020-08-29 00:00:00 Completed [facility] SARS-COV-2 COVID-19 UNSPECIFIED VACCINE 2020-08-29 00:00:00 Completed [facility] SARS-COV-2 COVID-19 VACCINE - (MODERNA) 2020-08-29 00:00:00 Completed [facility] SARS-COV-2 COVID-19 UNSPECIFIED VACCINE 2020-08-29 00:00:00 Completed [facility] SARS-COV-2 COVID-19 VACCINE - (MODERNA) 2020-08-29 00:00:00 Completed [facility] SARS-COV-2 COVID-19 UNSPECIFIED VACCINE 2020-08-29 00:00:00 Completed [facility] SARS-COV-2 COVID-19 VACCINE - (MODERNA) 2020-08-29 00:00:00 Completed [facility] SARS-COV-2 COVID-19 UNSPECIFIED VACCINE 2020-08-29 00:00:00 Completed [facility] SARS-COV-2 COVID-19 VACCINE - (MODERNA) 2020-08-29 00:00:00 Completed [facility] SARS-COV-2 COVID-19 UNSPECIFIED VACCINE 2020-08-29 00:00:00 Completed [facility] SARS-COV-2 COVID-19 VACCINE - (MODERNA) 2020-08-29 00:00:00 Completed [facility] SARS-COV-2 COVID-19 UNSPECIFIED VACCINE 2020-08-29 00:00:00 Completed [facility] SARS-COV-2 COVID-19 VACCINE - (MODERNA) 2020-08-29 00:00:00 Completed [facility] SARS-COV-2 COVID-19 UNSPECIFIED VACCINE 2020-08-29 00:00:00 Completed [facility] SARS-COV-2 COVID-19 VACCINE - (MODERNA) 2020-08-29 00:00:00 Completed [facility] SARS-COV-2 COVID-19 UNSPECIFIED VACCINE 2020-08-29 00:00:00 Completed [facility] SARS-COV-2 COVID-19 VACCINE - (MODERNA) 2020-08-29 00:00:00 Completed [facility] SARS-COV-2 COVID-19 UNSPECIFIED VACCINE 2020-08-29 00:00:00 Completed [facility] SARS-COV-2 COVID-19 VACCINE - (MODERNA) 2020-08-29 00:00:00 Completed [facility] SARS-COV-2 COVID-19 UNSPECIFIED VACCINE 2020-08-29 00:00:00 Completed [facility] SARS-COV-2 COVID-19 VACCINE - (MODERNA) 2020-08-29 00:00:00 Completed [facility] SARS-COV-2 COVID-19 UNSPECIFIED VACCINE 2020-08-29 00:00:00 Completed [facility] SARS-COV-2 COVID-19 VACCINE - (MODERNA) 2020-08-29 00:00:00 Completed [facility] SARS-COV-2 COVID-19 UNSPECIFIED VACCINE 2020-08-29 00:00:00 Completed [facility] SARS-COV-2 COVID-19 VACCINE - (MODERNA) 2020-08-29 00:00:00 Completed [facility] SARS-COV-2 COVID-19 UNSPECIFIED VACCINE 2020-08-29 00:00:00 Completed [facility] SARS-COV-2 COVID-19 VACCINE - (MODERNA) 2020-08-29 00:00:00 Completed [facility] SARS-COV-2 COVID-19 UNSPECIFIED VACCINE 2020-08-29 00:00:00 Completed [facility] SARS-COV-2 COVID-19 VACCINE - (MODERNA) 2020-08-29 00:00:00 Completed [facility] SARS-COV-2 COVID-19 UNSPECIFIED VACCINE 2020-08-29 00:00:00 Completed [facility] SARS-COV-2 COVID-19 VACCINE - (MODERNA) 2020-08-29 00:00:00 Completed [facility] SARS-COV-2 COVID-19 UNSPECIFIED VACCINE 2020-08-29 00:00:00 Completed [facility] SARS-COV-2 COVID-19 VACCINE - (MODERNA) 2020-08-29 00:00:00 Completed [facility] SARS-COV-2 COVID-19 UNSPECIFIED VACCINE 2020-08-29 00:00:00 Completed [facility] SARS-COV-2 COVID-19 VACCINE - (MODERNA) 2020-08-29 00:00:00 Completed [facility] SARS-COV-2 COVID-19 UNSPECIFIED VACCINE 2020-08-29 00:00:00 Completed [facility] SARS-COV-2 COVID-19 VACCINE - (MODERNA) 2020-08-29 00:00:00 Completed [facility] SARS-COV-2 COVID-19 UNSPECIFIED VACCINE 2020-08-29 00:00:00 Completed [facility] SARS-COV-2 COVID-19 VACCINE - (MODERNA) 2020-08-29 00:00:00 Completed [facility] SARS-COV-2 COVID-19 UNSPECIFIED VACCINE 2020-08-29 00:00:00 Completed [facility] SARS-COV-2 COVID-19 VACCINE - (MODERNA) 2020-08-29 00:00:00 Completed [facility] SARS-COV-2 COVID-19 UNSPECIFIED VACCINE 2020-08-29 00:00:00 Completed [facility] SARS-COV-2 COVID-19 VACCINE - (MODERNA) 2020-08-29 00:00:00 Completed [facility] SARS-COV-2 COVID-19 UNSPECIFIED VACCINE 2020-08-29 00:00:00 Completed [facility] SARS-COV-2 COVID-19 VACCINE - (MODERNA) 2020-08-29 00:00:00 Completed [facility] SARS-COV-2 COVID-19 UNSPECIFIED VACCINE 2020-08-29 00:00:00 Completed [facility] SARS-COV-2 COVID-19 VACCINE - (MODERNA) 2020-08-29 00:00:00 Completed [facility] SARS-COV-2 COVID-19 UNSPECIFIED VACCINE 2020-08-29 00:00:00 Completed [facility] SARS-COV-2 COVID-19 VACCINE - (MODERNA) 2020-08-29 00:00:00 Completed [facility] SARS-COV-2 COVID-19 UNSPECIFIED VACCINE 2020-08-29 00:00:00 Completed [facility] SARS-COV-2 COVID-19 VACCINE - (MODERNA) 2020-08-29 00:00:00 Completed [facility] SARS-COV-2 COVID-19 UNSPECIFIED VACCINE 2020-08-29 00:00:00 Completed [facility] SARS-COV-2 COVID-19 VACCINE - (MODERNA) 2020-08-29 00:00:00 Completed [facility] SARS-COV-2 COVID-19 UNSPECIFIED VACCINE 2020-08-29 00:00:00 Completed [facility] SARS-COV-2 COVID-19 VACCINE - (MODERNA) 2020-08-29 00:00:00 Completed [facility] SARS-COV-2 COVID-19 UNSPECIFIED VACCINE 2020-08-29 00:00:00 Completed [facility] SARS-COV-2 COVID-19 VACCINE - (MODERNA) 2020-08-29 00:00:00 Completed [facility] SARS-COV-2 COVID-19 UNSPECIFIED VACCINE 2020-08-29 00:00:00 Completed [facility] SARS-COV-2 COVID-19 VACCINE - (MODERNA) 2020-08-29 00:00:00 Completed [facility] SARS-COV-2 COVID-19 UNSPECIFIED VACCINE 2020-08-29 00:00:00 Completed [facility] SARS-COV-2 COVID-19 VACCINE - (MODERNA) 2020-08-29 00:00:00 Completed [facility] SARS-COV-2 COVID-19 UNSPECIFIED VACCINE 2020-08-29 00:00:00 Completed [facility] SARS-COV-2 COVID-19 VACCINE - (MODERNA) 2020-08-29 00:00:00 Completed [facility] SARS-COV-2 COVID-19 UNSPECIFIED VACCINE 2020-08-29 00:00:00 Completed [facility] SARS-COV-2 COVID-19 VACCINE - (MODERNA) 2020-08-29 00:00:00 Completed [facility] SARS-COV-2 COVID-19 UNSPECIFIED VACCINE 2020-08-29 00:00:00 Completed [facility] SARS-COV-2 COVID-19 VACCINE - (MODERNA) 2020-08-29 00:00:00 Completed [facility] SARS-COV-2 COVID-19 UNSPECIFIED VACCINE 2020-08-29 00:00:00 Completed [facility] SARS-COV-2 COVID-19 VACCINE - (MODERNA) 2020-08-29 00:00:00 Completed [facility] SARS-COV-2 COVID-19 UNSPECIFIED VACCINE 2020-08-29 00:00:00 Completed [facility] SARS-COV-2 COVID-19 VACCINE - (MODERNA) 2020-08-29 00:00:00 Completed [facility] SARS-COV-2 COVID-19 UNSPECIFIED VACCINE 2020-08-29 00:00:00 Completed [facility] SARS-COV-2 COVID-19 VACCINE - (MODERNA) 2020-08-29 00:00:00 Completed [facility] SARS-COV-2 COVID-19 UNSPECIFIED VACCINE 2020-08-29 00:00:00 Completed [facility] SARS-COV-2 COVID-19 VACCINE - (MODERNA) 2020-08-29 00:00:00 Completed [facility] SARS-COV-2 COVID-19 UNSPECIFIED VACCINE 2020-08-29 00:00:00 Completed [facility] SARS-COV-2 COVID-19 VACCINE - (MODERNA) 2020-08-29 00:00:00 Completed [facility] SARS-COV-2 COVID-19 UNSPECIFIED VACCINE 2020-08-29 00:00:00 Completed [facility] SARS-COV-2 COVID-19 VACCINE - (MODERNA) 2020-08-29 00:00:00 Completed [facility] SARS-COV-2 COVID-19 UNSPECIFIED VACCINE 2020-08-29 00:00:00 Completed [facility] SARS-COV-2 COVID-19 VACCINE - (MODERNA) 2020-08-29 00:00:00 Completed [facility] SARS-COV-2 COVID-19 UNSPECIFIED VACCINE 2020-08-29 00:00:00 Completed [facility] SARS-COV-2 COVID-19 VACCINE - (MODERNA) 2020-08-29 00:00:00 Completed [facility] SARS-COV-2 COVID-19 UNSPECIFIED VACCINE 2020-08-29 00:00:00 Completed [facility] SARS-COV-2 COVID-19 VACCINE - (MODERNA) 2020-08-29 00:00:00 Completed [facility] SARS-COV-2 COVID-19 UNSPECIFIED VACCINE 2020-08-29 00:00:00 Completed [facility] SARS-COV-2 COVID-19 VACCINE - (MODERNA) 2020-08-29 00:00:00 Completed [facility] SARS-COV-2 COVID-19 UNSPECIFIED VACCINE 2020-08-29 00:00:00 Completed [facility] SARS-COV-2 COVID-19 VACCINE - (MODERNA) 2020-08-29 00:00:00 Completed [facility] SARS-COV-2 COVID-19 UNSPECIFIED VACCINE 2020-08-29 00:00:00 Completed [facility] SARS-COV-2 COVID-19 VACCINE - (MODERNA) 2020-08-29 00:00:00 Completed [facility] SARS-COV-2 COVID-19 UNSPECIFIED VACCINE 2020-08-29 00:00:00 Completed [facility] SARS-COV-2 COVID-19 VACCINE - (MODERNA) 2020-08-29 00:00:00 Completed [facility] SARS-COV-2 COVID-19 UNSPECIFIED VACCINE 2020-08-29 00:00:00 Completed [facility] SARS-COV-2 COVID-19 VACCINE - (MODERNA) 2020-08-29 00:00:00 Completed [facility] SARS-COV-2 COVID-19 UNSPECIFIED VACCINE 2020-08-29 00:00:00 Completed [facility] SARS-COV-2 COVID-19 VACCINE - (MODERNA) 2020-08-29 00:00:00 Completed [facility] SARS-COV-2 COVID-19 UNSPECIFIED VACCINE 2020-08-29 00:00:00 Completed [facility] SARS-COV-2 COVID-19 VACCINE - (MODERNA) 2020-08-29 00:00:00 Completed [facility] SARS-COV-2 COVID-19 UNSPECIFIED VACCINE 2020-08-29 00:00:00 Completed [facility] SARS-COV-2 COVID-19 VACCINE - (MODERNA) 2020-08-29 00:00:00 Completed [facility] SARS-COV-2 COVID-19 UNSPECIFIED VACCINE 2020-08-29 00:00:00 Completed [facility] SARS-COV-2 COVID-19 VACCINE - (MODERNA) 2020-08-29 00:00:00 Completed [facility] SARS-COV-2 COVID-19 UNSPECIFIED VACCINE 2020-08-29 00:00:00 Completed [facility] SARS-COV-2 COVID-19 VACCINE - (MODERNA) 2020-08-29 00:00:00 Completed [facility] SARS-COV-2 COVID-19 UNSPECIFIED VACCINE 2020-08-29 00:00:00 Completed [facility] SARS-COV-2 COVID-19 VACCINE - (MODERNA) 2020-08-29 00:00:00 Completed [facility] SARS-COV-2 COVID-19 UNSPECIFIED VACCINE 2020-08-29 00:00:00 Completed [facility] SARS-COV-2 COVID-19 VACCINE - (MODERNA) 2020-08-29 00:00:00 Completed [facility] SARS-COV-2 COVID-19 UNSPECIFIED VACCINE 2020-08-29 00:00:00 Completed [facility] SARS-COV-2 COVID-19 VACCINE - (MODERNA) 2020-08-29 00:00:00 Completed [facility] SARS-COV-2 COVID-19 UNSPECIFIED VACCINE 2020-08-29 00:00:00 Completed [facility] SARS-COV-2 COVID-19 VACCINE - (MODERNA) 2020-08-29 00:00:00 Completed [facility] SARS-COV-2 COVID-19 UNSPECIFIED VACCINE 2020-08-29 00:00:00 Completed [facility] SARS-COV-2 COVID-19 VACCINE - (MODERNA) 2020-08-29 00:00:00 Completed [facility] SARS-COV-2 COVID-19 UNSPECIFIED VACCINE 2020-08-29 00:00:00 Completed [facility] SARS-COV-2 COVID-19 VACCINE - (MODERNA) 2020-08-29 00:00:00 Completed [facility] SARS-COV-2 COVID-19 UNSPECIFIED VACCINE 2020-08-29 00:00:00 Completed [facility] SARS-COV-2 COVID-19 VACCINE - (MODERNA) 2020-08-29 00:00:00 Completed [facility] SARS-COV-2 (COVID-19) vaccine, UNSPECIFIED SARS-COV-2 (COVID-19) vaccine, UNSPECIFIED 2020-08-29 00:00:00 Completed [facility] SARS-COV-2 (COVID-19) vaccine, UNSPECIFIED SARS-COV-2 (COVID-19) vaccine, UNSPECIFIED 2020-08-29 00:00:00 Completed [facility] SARS-COV-2 (COVID-19) vaccine, UNSPECIFIED SARS-COV-2 (COVID-19) vaccine, UNSPECIFIED 2020-08-29 00:00:00 Completed [facility] SARS-COV-2 (COVID-19) vaccine, UNSPECIFIED SARS-COV-2 (COVID-19) vaccine, UNSPECIFIED 2020-08-29 00:00:00 Completed [facility] SARS-COV-2 (COVID-19) vaccine, UNSPECIFIED SARS-COV-2 (COVID-19) vaccine, UNSPECIFIED 2020-08-29 00:00:00 Completed [facility] SARS-COV-2 (COVID-19) vaccine, UNSPECIFIED SARS-COV-2 (COVID-19) vaccine, UNSPECIFIED 2020-08-29 00:00:00 Completed [facility] COVID-19 (SARS-COV-2) vaccine, unspecified COVID-19 (SARS-COV-2) vaccine, unspecified 2020-08-29 00:00:00 Completed [facility] COVID-19 (SARS-COV-2) vaccine, unspecified COVID-19 (SARS-COV-2) vaccine, unspecified 2020-08-29 00:00:00 [facility] COVID-19 (SARS-COV-2) vaccine, unspecified COVID-19 (SARS-COV-2) vaccine, unspecified 2020-08-29 00:00:00 [facility] COVID-19 (SARS-COV-2) vaccine, unspecified COVID-19 (SARS-COV-2) vaccine, unspecified 2020-08-29 00:00:00 [facility] Influenza, injectable, MDCK, preservative free, quadrivalent Influenza, injectable, MDCK, preservative free, quadrivalent 2020-03-27 12:37:23 [facility] Influenza, injectable, MDCK, preservative free, quadrivalent Influenza, injectable, MDCK, preservative free, quadrivalent 2020-03-27 12:37:[address] [facility] Influenza, injectable, MDCK, preservative free, quadrivalent Influenza, injectable, MDCK, preservative free, quadrivalent 2020-03-27 12:37:[address] [facility] Influenza, injectable, MDCK, preservative free, quadrivalent Influenza, injectable, MDCK, preservative free, quadrivalent 2020-03-27 12:37:[address] [facility] Influenza, injectable, MDCK, preservative free, quadrivalent Influenza, injectable, MDCK, preservative free, quadrivalent 2020-03-27 12:37:23 [facility] Influenza, injectable, MDCK, preservative free, quadrivalent Influenza, injectable, MDCK, preservative free, quadrivalent 2020-03-27 12:37:23 [facility] Influenza, injectable, MDCK, preservative free, quadrivalent Influenza, injectable, MDCK, preservative free, quadrivalent 2020-03-27 12:37:23 [facility] Influenza, injectable, MDCK, preservative free, quadrivalent Influenza, injectable, MDCK, preservative free, quadrivalent 2020-03-27 12:37:23 [facility] Influenza, injectable, MDCK, preservative free, quadrivalent Influenza, injectable, MDCK, preservative free, quadrivalent 2020-03-27 12:37:23 [facility] Influenza, injectable, MDCK, preservative free, quadrivalent Influenza, injectable, MDCK, preservative free, quadrivalent 2020-03-27 12:37:[address] [facility] Influenza, injectable, MDCK, preservative free, quadrivalent Influenza, injectable, MDCK, preservative free, quadrivalent 2020-03-27 12:37:[address] [facility] Influenza, injectable, MDCK, preservative free, quadrivalent Influenza, injectable, MDCK, preservative free, quadrivalent 2020-03-27 12:37:[address] [facility] Influenza, injectable, MDCK, preservative free, quadrivalent Influenza, injectable, MDCK, preservative free, quadrivalent 2020-03-27 12:37:23 [facility] Influenza Virus Vaccine 2020-03-27 00:00:00 Completed [facility] Influenza Virus Vaccine 2020-03-27 00:00:00 Completed [facility] Influenza Virus Vaccine 2020-03-27 00:00:00 Completed [facility] Influenza Virus Vaccine 2020-03-27 00:00:00 Completed [facility] Influenza Virus Vaccine 2020-03-27 00:00:00 Completed [facility] Influenza Virus Vaccine 2020-03-27 00:00:00 Completed [facility] Influenza Virus Vaccine 2020-03-27 00:00:00 Completed [facility] Influenza Virus Vaccine 2020-03-27 00:00:00 Completed [facility] Influenza Virus Vaccine 2020-03-27 00:00:00 Completed [facility] Influenza Virus Vaccine 2020-03-27 00:00:00 Completed [facility] Influenza Virus Vaccine 2020-03-27 00:00:00 Completed [facility] Influenza Virus Vaccine 2020-03-27 00:00:00 Completed [facility] Influenza Virus Vaccine 2020-03-27 00:00:00 Completed [facility] Influenza Virus Vaccine 2020-03-27 00:00:00 Completed [facility] Influenza Virus Vaccine 2020-03-27 00:00:00 Completed [facility] Influenza Virus Vaccine 2020-03-27 00:00:00 Completed [facility] Influenza Virus Vaccine 2020-03-27 00:00:00 Completed [facility] Influenza Virus Vaccine 2020-03-27 00:00:00 Completed [facility] Influenza Virus Vaccine 2020-03-27 00:00:00 Completed [facility] Influenza Virus Vaccine 2020-03-27 00:00:00 Completed [facility] Influenza Virus Vaccine 2020-03-27 00:00:00 Completed [facility] Influenza Virus Vaccine 2020-03-27 00:00:00 Completed [facility] Influenza Virus Vaccine 2020-03-27 00:00:00 Completed [facility] Influenza Virus Vaccine 2020-03-27 00:00:00 Completed [facility] Influenza Virus Vaccine 2020-03-27 00:00:00 Completed [facility] Influenza Virus Vaccine 2020-03-27 00:00:00 Completed [facility] Influenza Virus Vaccine 2020-03-27 00:00:00 Completed [facility] Influenza Virus Vaccine 2020-03-27 00:00:00 Completed [facility] Influenza Virus Vaccine 2020-03-27 00:00:00 Completed [facility] Influenza Virus Vaccine 2020-03-27 00:00:00 Completed [facility] Influenza Virus Vaccine 2020-03-27 00:00:00 Completed [facility] Influenza Virus Vaccine 2020-03-27 00:00:00 Completed [facility] Influenza Virus Vaccine 2020-03-27 00:00:00 Completed [facility] Influenza Virus Vaccine 2020-03-27 00:00:00 Completed [facility] Influenza Virus Vaccine 2020-03-27 00:00:00 Completed [facility] Influenza Virus Vaccine 2020-03-27 00:00:00 Completed [facility] Influenza Virus Vaccine 2020-03-27 00:00:00 Completed [facility] Influenza Virus Vaccine 2020-03-27 00:00:00 Completed [facility] Influenza Virus Vaccine 2020-03-27 00:00:00 Completed [facility] Influenza Virus Vaccine 2020-03-27 00:00:00 Completed [facility] Influenza Virus Vaccine 2020-03-27 00:00:00 Completed [facility] Influenza Virus Vaccine 2020-03-27 00:00:00 Completed [facility] Influenza Virus Vaccine 2020-03-27 00:00:00 Completed [facility] Influenza Virus Vaccine 2020-03-27 00:00:00 Completed [facility] Influenza Virus Vaccine 2020-03-27 00:00:00 Completed [facility] Influenza Virus Vaccine 2020-03-27 00:00:00 Completed [facility] Influenza Virus Vaccine 2020-03-27 00:00:00 Completed [facility] Influenza Virus Vaccine 2020-03-27 00:00:00 Completed [facility] Influenza Virus Vaccine 2020-03-27 00:00:00 Completed [facility] Influenza Virus Vaccine 2020-03-27 00:00:00 Completed [facility] Influenza Virus Vaccine 2020-03-27 00:00:00 Completed [facility] Influenza Virus Vaccine 2020-03-27 00:00:00 Completed [facility] Influenza Virus Vaccine 2020-03-27 00:00:00 Completed [facility] Influenza Virus Vaccine 2020-03-27 00:00:00 Completed [facility] Influenza Virus Vaccine 2020-03-27 00:00:00 Completed [facility] Influenza Virus Vaccine 2020-03-27 00:00:00 Completed [facility] Influenza Virus Vaccine 2020-03-27 00:00:00 Completed [facility] Influenza Virus Vaccine 2020-03-27 00:00:00 Completed [facility] Influenza Virus Vaccine 2020-03-27 00:00:00 Completed [facility] Influenza Virus Vaccine 2020-03-27 00:00:00 Completed [facility] Influenza Virus Vaccine 2020-03-27 00:00:00 Completed [facility] Influenza Virus Vaccine 2020-03-27 00:00:00 Completed [facility] Influenza Virus Vaccine 2020-03-27 00:00:00 Completed [facility] Influenza Virus Vaccine 2020-03-27 00:00:00 Completed [facility] Influenza Virus Vaccine 2020-03-27 00:00:00 Completed [facility] Influenza Virus Vaccine 2020-03-27 00:00:00 Completed [facility] Influenza Virus Vaccine 2020-03-27 00:00:00 Completed [facility] Influenza Virus Vaccine 2020-03-27 00:00:00 Completed [facility] Influenza Virus Vaccine 2020-03-27 00:00:00 Completed [facility] Influenza Virus Vaccine 2020-03-27 00:00:00 Completed [facility] Influenza Virus Vaccine 2020-03-27 00:00:00 Completed [facility] Influenza Virus Vaccine 2020-03-27 00:00:00 Completed [facility] Influenza Virus Vaccine 2020-03-27 00:00:00 Completed [facility] Influenza Virus Vaccine 2020-03-27 00:00:00 Completed [facility] Influenza Virus Vaccine 2020-03-27 00:00:00 Completed [facility] Influenza Virus Vaccine 2020-03-27 00:00:00 Completed [facility] Influenza Virus Vaccine 2020-03-27 00:00:00 Completed [facility] Influenza Virus Vaccine 2020-03-27 00:00:00 Completed [facility] Influenza Virus Vaccine 2020-03-27 00:00:00 Completed [facility] Influenza Virus Vaccine 2020-03-27 00:00:00 Completed [facility] Influenza Virus Vaccine 2020-03-27 00:00:00 Completed [facility] Influenza Virus Vaccine 2020-03-27 00:00:00 Completed [facility] Influenza Virus Vaccine 2020-03-27 00:00:00 Completed [facility] Influenza Virus Vaccine 2020-03-27 00:00:00 Completed [facility] Influenza Virus Vaccine 2020-03-27 00:00:00 Completed [facility] Influenza Virus Vaccine 2020-03-27 00:00:00 Completed [facility] Influenza Virus Vaccine 2020-03-27 00:00:00 Completed [facility] Influenza Virus Vaccine 2020-03-27 00:00:00 Completed [facility] Influenza Virus Vaccine 2020-03-27 00:00:00 Completed [facility] Influenza Virus Vaccine 2020-03-27 00:00:00 Completed [facility] Influenza Virus Vaccine 2020-03-27 00:00:00 Completed [facility] Influenza Virus Vaccine 2020-03-27 00:00:00 Completed [facility] Influenza Virus Vaccine 2020-03-27 00:00:00 Completed [facility] Influenza Virus Vaccine 2020-03-27 00:00:00 Completed [facility] Influenza Virus Vaccine 2020-03-27 00:00:00 Completed [facility] Influenza Virus Vaccine 2020-03-27 00:00:00 Completed [facility] Influenza Virus Vaccine 2020-03-27 00:00:00 Completed [facility] Influenza Virus Vaccine 2020-03-27 00:00:00 Completed [facility] Influenza Virus Vaccine 2020-03-27 00:00:00 Completed [facility] Influenza Virus Vaccine 2020-03-27 00:00:00 Completed [facility] Influenza Virus Vaccine 2020-03-27 00:00:00 Completed [facility] Influenza Virus Vaccine 2020-03-27 00:00:00 Completed [facility] Influenza Virus Vaccine 2020-03-27 00:00:00 Completed [facility] Influenza Virus Vaccine 2020-03-27 00:00:00 Completed [facility] Influenza Virus Vaccine 2020-03-27 00:00:00 Completed [facility] Influenza Virus Vaccine 2020-03-27 00:00:00 Completed [facility] Influenza Virus Vaccine 2020-03-27 00:00:00 Completed [facility] Influenza Virus Vaccine 2020-03-27 00:00:00 Completed [facility] Influenza Virus Vaccine 2020-03-27 00:00:00 Completed [facility] Influenza Virus Vaccine 2020-03-27 00:00:00 Completed [facility] Influenza Virus Vaccine 2020-03-27 00:00:00 Completed [facility] Influenza Virus Vaccine 2020-03-27 00:00:00 Completed [facility] Influenza Virus Vaccine 2020-03-27 00:00:00 Completed [facility] Influenza Virus Vaccine 2020-03-27 00:00:00 Completed [facility] Influenza Virus Vaccine 2020-03-27 00:00:00 Completed [facility] Influenza Virus Vaccine 2020-03-27 00:00:00 Completed [facility] Influenza Virus Vaccine 2020-03-27 00:00:00 Completed [facility] Influenza Virus Vaccine 2020-03-27 00:00:00 Completed [facility] Influenza Virus Vaccine 2020-03-27 00:00:00 Completed [facility] Influenza Virus Vaccine 2020-03-27 00:00:00 Completed [facility] Influenza Virus Vaccine 2020-03-27 00:00:00 Completed [facility] Influenza Virus Vaccine 2020-03-27 00:00:00 Completed [facility] Influenza Virus Vaccine 2020-03-27 00:00:00 Completed [facility] Influenza Virus Vaccine 2020-03-27 00:00:00 Completed [facility] Influenza Virus Vaccine 2020-03-27 00:00:00 Completed [facility] Influenza Virus Vaccine 2020-03-27 00:00:00 Completed [facility] Influenza Virus Vaccine 2020-03-27 00:00:00 Completed [facility] Influenza Virus Vaccine 2020-03-27 00:00:00 Completed [facility] Influenza Virus Vaccine 2020-03-27 00:00:00 Completed [facility] Influenza Virus Vaccine 2020-03-27 00:00:00 Completed [facility] Influenza Virus Vaccine 2020-03-27 00:00:00 Completed [facility] Influenza Virus Vaccine 2020-03-27 00:00:00 Completed [facility] Influenza Virus Vaccine 2020-03-27 00:00:00 Completed [facility] Influenza Virus Vaccine 2020-03-27 00:00:00 Completed [facility] Influenza Virus Vaccine 2020-03-27 00:00:00 Completed [facility] Influenza Virus Vaccine 2020-03-27 00:00:00 Completed [facility] Influenza Virus Vaccine 2020-03-27 00:00:00 Completed [facility] Influenza Virus Vaccine 2020-03-27 00:00:00 Completed [facility] Influenza Virus Vaccine 2020-03-27 00:00:00 Completed [facility] Influenza Virus Vaccine 2020-03-27 00:00:00 Completed [facility] Influenza Virus Vaccine 2020-03-27 00:00:00 Completed [facility] Influenza Virus Vaccine 2020-03-27 00:00:00 Completed [facility] Influenza Virus Vaccine 2020-03-27 00:00:00 Completed [facility] Influenza Virus Vaccine 2020-03-27 00:00:00 Completed [facility] Influenza Virus Vaccine 2020-03-27 00:00:00 Completed [facility] Influenza Virus Vaccine 2020-03-27 00:00:00 Completed [facility] Influenza Virus Vaccine 2020-03-27 00:00:00 Completed [facility] Influenza Virus Vaccine 2020-03-27 00:00:00 Completed [facility] Influenza Virus Vaccine 2020-03-27 00:00:00 Completed [facility] Influenza Virus Vaccine 2020-03-27 00:00:00 Completed [facility] Influenza Virus Vaccine 2020-03-27 00:00:00 Completed [facility] Influenza Virus Vaccine 2020-03-27 00:00:00 Completed [facility] Influenza Virus Vaccine 2020-03-27 00:00:00 Completed [facility] Influenza Virus Vaccine 2020-03-27 00:00:00 Completed [facility] Influenza Virus Vaccine 2020-03-27 00:00:00 Completed [facility] Influenza Virus Vaccine 2020-03-27 00:00:00 Completed [facility] Influenza Virus Vaccine 2020-03-27 00:00:00 Completed [facility] Influenza Virus Vaccine 2020-03-27 00:00:00 Completed [facility] Influenza Virus Vaccine 2020-03-27 00:00:00 Completed [facility] Influenza Virus Vaccine 2020-03-27 00:00:00 Completed [facility] Influenza Virus Vaccine 2020-03-27 00:00:00 Completed [facility] Influenza Virus Vaccine 2020-03-27 00:00:00 Completed [facility] Influenza Virus Vaccine 2020-03-27 00:00:00 Completed [facility] Influenza Virus Vaccine 2020-03-27 00:00:00 Completed [facility] Influenza High Dose 2019-04-15 00:00:00 Completed [facility] Influenza Virus Vaccine 2019-04-15 00:00:00 Completed [facility] Influenza High Dose 2019-04-15 00:00:00 Completed [facility] Influenza Virus Vaccine 2019-04-15 00:00:00 Completed [facility] Influenza High Dose 2019-04-15 00:00:00 Completed [facility] Influenza Virus Vaccine 2019-04-15 00:00:00 [facility] [facility] Dose 2019-04-15 00:00:00 Completed [facility] Influenza Virus Vaccine 2019-04-15 00:00:00 Completed [facility] Influenza High Dose 2019-04-15 00:00:00 Completed [facility] Influenza Virus Vaccine 2019-04-15 00:00:00 Completed [facility] Influenza High Dose 2019-04-15 00:00:00 Completed [facility] Influenza Virus Vaccine 2019-04-15 00:00:00 Completed [facility] Influenza High Dose 2019-04-15 00:00:00 Completed [facility] Influenza Virus Vaccine 2019-04-15 00:00:00 Completed [facility] Influenza High Dose 2019-04-15 00:00:00 Completed [facility] Influenza Virus Vaccine 2019-04-15 00:00:00 Completed [facility] Influenza High Dose 2019-04-15 00:00:00 Completed [facility] Influenza Virus Vaccine 2019-04-15 00:00:00 Completed [facility] Influenza High Dose 2019-04-15 00:00:00 Completed [facility] Influenza Virus Vaccine 2019-04-15 00:00:00 Completed [facility] Influenza High Dose 2019-04-15 00:00:00 Completed [facility] Influenza Virus Vaccine 2019-04-15 00:00:00 Completed [facility] Influenza High Dose 2019-04-15 00:00:00 Completed [facility] Influenza Virus Vaccine 2019-04-15 00:00:00 Completed [facility] Influenza High Dose 2019-04-15 00:00:00 Completed [facility] Influenza Virus Vaccine 2019-04-15 00:00:00 Completed [facility] Influenza High Dose 2019-04-15 00:00:00 Completed [facility] Influenza Virus Vaccine 2019-04-15 00:00:00 Completed [facility] Influenza High Dose 2019-04-15 00:00:00 Completed [facility] Influenza Virus Vaccine 2019-04-15 00:00:00 Completed [facility] Influenza High Dose 2019-04-15 00:00:00 Completed [facility] Influenza Virus Vaccine 2019-04-15 00:00:00 Completed [facility] Influenza High Dose 2019-04-15 00:00:00 Completed [facility] Influenza Virus Vaccine 2019-04-15 00:00:00 Completed [facility] Influenza High Dose 2019-04-15 00:00:00 Completed [facility] Influenza Virus Vaccine 2019-04-15 00:00:00 Completed [facility] Influenza High Dose 2019-04-15 00:00:00 Completed [facility] Influenza Virus Vaccine 2019-04-15 00:00:00 Completed [facility] Influenza High Dose 2019-04-15 00:00:00 Completed [facility] Influenza Virus Vaccine 2019-04-15 00:00:00 Completed [facility] Influenza High Dose 2019-04-15 00:00:00 Completed [facility] Influenza Virus Vaccine 2019-04-15 00:00:00 Completed [facility] Influenza High Dose 2019-04-15 00:00:00 Completed [facility] Influenza Virus Vaccine 2019-04-15 00:00:00 Completed [facility] Influenza High Dose 2019-04-15 00:00:00 Completed [facility] Influenza Virus Vaccine 2019-04-15 00:00:00 Completed [facility] Influenza High Dose 2019-04-15 00:00:00 Completed [facility] Influenza Virus Vaccine 2019-04-15 00:00:00 Completed [facility] Influenza High Dose 2019-04-15 00:00:00 Completed [facility] Influenza Virus Vaccine 2019-04-15 00:00:00 Completed [facility] Influenza High Dose 2019-04-15 00:00:00 Completed [facility] Influenza Virus Vaccine 2019-04-15 00:00:00 Completed [facility] Influenza High Dose 2019-04-15 00:00:00 Completed [facility] Influenza Virus Vaccine 2019-04-15 00:00:00 Completed [facility] Influenza High Dose 2019-04-15 00:00:00 Completed [facility] Influenza Virus Vaccine 2019-04-15 00:00:00 Completed [facility] Influenza High Dose 2019-04-15 00:00:00 Completed [facility] Influenza Virus Vaccine 2019-04-15 00:00:00 Completed [facility] Influenza High Dose 2019-04-15 00:00:00 Completed [facility] Influenza Virus Vaccine 2019-04-15 00:00:00 Completed [facility] Influenza High Dose 2019-04-15 00:00:00 Completed [facility] Influenza Virus Vaccine 2019-04-15 00:00:00 Completed [facility] Influenza High Dose 2019-04-15 00:00:00 Completed [facility] Influenza Virus Vaccine 2019-04-15 00:00:00 Completed [facility] Influenza High Dose 2019-04-15 00:00:00 Completed [facility] Influenza Virus Vaccine 2019-04-15 00:00:00 Completed [facility] Influenza High Dose 2019-04-15 00:00:00 Completed [facility] Influenza Virus Vaccine 2019-04-15 00:00:00 Completed [facility] Influenza High Dose 2019-04-15 00:00:00 Completed [facility] Influenza Virus Vaccine 2019-04-15 00:00:00 Completed [facility] Influenza High Dose 2019-04-15 00:00:00 Completed [facility] Influenza Virus Vaccine 2019-04-15 00:00:00 Completed [facility] Influenza High Dose 2019-04-15 00:00:00 Completed [facility] Influenza Virus Vaccine 2019-04-15 00:00:00 Completed [facility] Influenza High Dose 2019-04-15 00:00:00 Completed [facility] Influenza Virus Vaccine 2019-04-15 00:00:00 Completed [facility] Influenza High Dose 2019-04-15 00:00:00 Completed [facility] Influenza Virus Vaccine 2019-04-15 00:00:00 Completed [facility] Influenza High Dose 2019-04-15 00:00:00 Completed [facility] Influenza Virus Vaccine 2019-04-15 00:00:00 Completed [facility] Influenza High Dose 2019-04-15 00:00:00 Completed [facility] Influenza Virus Vaccine 2019-04-15 00:00:00 Completed [facility] Influenza High Dose 2019-04-15 00:00:00 Completed [facility] Influenza Virus Vaccine 2019-04-15 00:00:00 Completed [facility] Influenza High Dose 2019-04-15 00:00:00 Completed [facility] Influenza Virus Vaccine 2019-04-15 00:00:00 Completed [facility] Influenza High Dose 2019-04-15 00:00:00 Completed [facility] Influenza Virus Vaccine 2019-04-15 00:00:00 Completed [facility] Influenza High Dose 2019-04-15 00:00:00 Completed [facility] Influenza Virus Vaccine 2019-04-15 00:00:00 Completed [facility] Influenza High Dose 2019-04-15 00:00:00 Completed [facility] Influenza Virus Vaccine 2019-04-15 00:00:00 Completed [facility] Influenza High Dose 2019-04-15 00:00:00 Completed [facility] Influenza Virus Vaccine 2019-04-15 00:00:00 Completed [facility] Influenza High Dose 2019-04-15 00:00:00 Completed [facility] Influenza Virus Vaccine 2019-04-15 00:00:00 Completed [facility] Influenza High Dose 2019-04-15 00:00:00 Completed [facility] Influenza Virus Vaccine 2019-04-15 00:00:00 Completed [facility] Influenza High Dose 2019-04-15 00:00:00 Completed [facility] Influenza Virus Vaccine 2019-04-15 00:00:00 Completed [facility] Influenza High Dose 2019-04-15 00:00:00 Completed [facility] Influenza Virus Vaccine 2019-04-15 00:00:00 Completed [facility] Influenza High Dose 2019-04-15 00:00:00 Completed [facility] Influenza Virus Vaccine 2019-04-15 00:00:00 Completed [facility] Influenza High Dose 2019-04-15 00:00:00 Completed [facility] Influenza Virus Vaccine 2019-04-15 00:00:00 Completed [facility] Influenza High Dose 2019-04-15 00:00:00 Completed [facility] Influenza Virus Vaccine 2019-04-15 00:00:00 Completed [facility] Influenza High Dose 2019-04-15 00:00:00 Completed [facility] Influenza Virus Vaccine 2019-04-15 00:00:00 Completed [facility] Influenza High Dose 2019-04-15 00:00:00 Completed [facility] Influenza Virus Vaccine 2019-04-15 00:00:00 Completed [facility] Influenza High Dose 2019-04-15 00:00:00 Completed [facility] Influenza Virus Vaccine 2019-04-15 00:00:00 Completed [facility] Influenza High Dose 2019-04-15 00:00:00 Completed [facility] Influenza Virus Vaccine 2019-04-15 00:00:00 Completed [facility] Influenza High Dose 2019-04-15 00:00:00 Completed [facility] Influenza Virus Vaccine 2019-04-15 00:00:00 Completed [facility] Influenza High Dose 2019-04-15 00:00:00 Completed [facility] Influenza Virus Vaccine 2019-04-15 00:00:00 Completed [facility] Influenza High Dose 2019-04-15 00:00:00 Completed [facility] Influenza Virus Vaccine 2019-04-15 00:00:00 Completed [facility] Influenza High Dose 2019-04-15 00:00:00 Completed [facility] Influenza Virus Vaccine 2019-04-15 00:00:00 Completed [facility] Influenza High Dose 2019-04-15 00:00:00 Completed [facility] Influenza Virus Vaccine 2019-04-15 00:00:00 Completed [facility] Influenza High Dose 2019-04-15 00:00:00 Completed [facility] Influenza Virus Vaccine 2019-04-15 00:00:00 Completed [facility] Influenza High Dose 2019-04-15 00:00:00 Completed [facility] Influenza Virus Vaccine 2019-04-15 00:00:00 Completed [facility] Influenza High Dose 2019-04-15 00:00:00 Completed [facility] Influenza Virus Vaccine 2019-04-15 00:00:00 Completed [facility] Influenza High Dose 2019-04-15 00:00:00 Completed [facility] Influenza Virus Vaccine 2019-04-15 00:00:00 Completed [facility] Influenza High Dose 2019-04-15 00:00:00 Completed [facility] Influenza Virus Vaccine 2019-04-15 00:00:00 Completed [facility] Influenza High Dose 2019-04-15 00:00:00 Completed [facility] Influenza Virus Vaccine 2019-04-15 00:00:00 Completed [facility] Influenza High Dose 2019-04-15 00:00:00 Completed [facility] Influenza Virus Vaccine 2019-04-15 00:00:00 Completed [facility] Influenza High Dose 2019-04-15 00:00:00 Completed [facility] Influenza Virus Vaccine 2019-04-15 00:00:00 Completed [facility] Influenza High Dose 2019-04-15 00:00:00 Completed [facility] Influenza Virus Vaccine 2019-04-15 00:00:00 Completed [facility] Influenza High Dose 2019-04-15 00:00:00 Completed [facility] Influenza Virus Vaccine 2019-04-15 00:00:00 Completed [facility] Influenza High Dose 2019-04-15 00:00:00 Completed [facility] Influenza Virus Vaccine 2019-04-15 00:00:00 Completed [facility] Influenza High Dose 2019-04-15 00:00:00 Completed [facility] Influenza Virus Vaccine 2019-04-15 00:00:00 Completed [facility] Influenza High Dose 2019-04-15 00:00:00 Completed [facility] Influenza Virus Vaccine 2019-04-15 00:00:00 Completed [facility] Influenza High Dose 2019-04-15 00:00:00 Completed [facility] Influenza Virus Vaccine 2019-04-15 00:00:00 Completed [facility] Influenza High Dose 2019-04-15 00:00:00 Completed [facility] Influenza Virus Vaccine 2019-04-15 00:00:00 Completed [facility] Influenza High Dose 2019-04-15 00:00:00 Completed [facility] Influenza Virus Vaccine 2019-04-15 00:00:00 Completed [facility] Influenza High Dose 2019-04-15 00:00:00 Completed [facility] Influenza Virus Vaccine 2019-04-15 00:00:00 Completed [facility] Influenza High Dose 2019-04-15 00:00:00 Completed [facility] Influenza Virus Vaccine 2019-04-15 00:00:00 Completed [facility] Influenza High Dose 2019-04-15 00:00:00 Completed [facility] Influenza Virus Vaccine 2019-04-15 00:00:00 Completed [facility] Influenza High Dose 2019-04-15 00:00:00 Completed [facility] Influenza Virus Vaccine 2019-04-15 00:00:00 Completed [facility] Influenza High Dose 2019-04-15 00:00:00 Completed [facility] Influenza Virus Vaccine 2019-04-15 00:00:00 Completed [facility] Influenza High Dose 2019-04-15 00:00:00 Completed [facility] Influenza Virus Vaccine 2019-04-15 00:00:00 Completed [facility] Influenza High Dose 2019-04-15 00:00:00 Completed [facility] Influenza Virus Vaccine 2019-04-15 00:00:00 Completed [facility] Influenza High Dose 2019-04-15 00:00:00 Completed [facility] Influenza Virus Vaccine 2019-04-15 00:00:00 Completed [facility] Influenza High Dose 2019-04-15 00:00:00 Completed [facility] Influenza Virus Vaccine 2019-04-15 00:00:00 Completed [facility] Influenza High Dose 2019-04-15 00:00:00 Completed [facility] Influenza Virus Vaccine 2019-04-15 00:00:00 Completed [facility] Influenza High Dose 2019-04-15 00:00:00 Completed [facility] Influenza Virus Vaccine 2019-04-15 00:00:00 Completed [facility] Influenza High Dose 2019-04-15 00:00:00 Completed [facility] Influenza Virus Vaccine 2019-04-15 00:00:00 Completed [facility] Influenza High Dose 2019-04-15 00:00:00 Completed [facility] Influenza Virus Vaccine 2019-04-15 00:00:00 Completed [facility] Influenza High Dose 2019-04-15 00:00:00 Completed [facility] Influenza Virus Vaccine 2019-04-15 00:00:00 Completed [facility] Influenza High Dose 2019-04-15 00:00:00 Completed [facility] Influenza Virus Vaccine 2019-04-15 00:00:00 Completed [facility] Influenza High Dose 2019-04-15 00:00:00 Completed [facility] Influenza Virus Vaccine 2019-04-15 00:00:00 Completed [facility] Influenza High Dose 2019-04-15 00:00:00 Completed [facility] Influenza Virus Vaccine 2019-04-15 00:00:00 Completed [facility] Influenza High Dose 2019-04-15 00:00:00 Completed [facility] Influenza Virus Vaccine 2019-04-15 00:00:00 Completed [facility] Influenza High Dose 2019-04-15 00:00:00 Completed [facility] Influenza Virus Vaccine 2019-04-15 00:00:00 Completed [facility] Influenza High Dose 2019-04-15 00:00:00 Completed [facility] Influenza Virus Vaccine 2019-04-15 00:00:00 Completed [facility] Influenza High Dose 2019-04-15 00:00:00 Completed [facility] Influenza Virus Vaccine 2019-04-15 00:00:00 Completed [facility] Influenza High Dose 2019-04-15 00:00:00 Completed [facility] Influenza Virus Vaccine 2019-04-15 00:00:00 Completed [facility] Influenza High Dose 2019-04-15 00:00:00 Completed [facility] Influenza Virus Vaccine 2019-04-15 00:00:00 Completed [facility] Influenza High Dose 2019-04-15 00:00:00 Completed [facility] Influenza Virus Vaccine 2019-04-15 00:00:00 Completed [facility] Influenza High Dose 2019-04-15 00:00:00 Completed [facility] Influenza Virus Vaccine 2019-04-15 00:00:00 Completed [facility] Influenza High Dose 2019-04-15 00:00:00 Completed [facility] Influenza Virus Vaccine 2019-04-15 00:00:00 Completed [facility] Influenza High Dose 2019-04-15 00:00:00 Completed [facility] Influenza Virus Vaccine 2019-04-15 00:00:00 Completed [facility] Influenza High Dose 2019-04-15 00:00:00 Completed [facility] Influenza Virus Vaccine 2019-04-15 00:00:00 Completed [facility] Influenza High Dose 2019-04-15 00:00:00 Completed [facility] Influenza Virus Vaccine 2019-04-15 00:00:00 Completed [facility] Influenza High Dose 2019-04-15 00:00:00 Completed [facility] Influenza Virus Vaccine 2019-04-15 00:00:00 Completed [facility] Influenza High Dose 2019-04-15 00:00:00 Completed [facility] Influenza Virus Vaccine 2019-04-15 00:00:00 Completed [facility] Influenza High Dose 2019-04-15 00:00:00 Completed [facility] Influenza Virus Vaccine 2019-04-15 00:00:00 Completed [facility] Influenza High Dose 2019-04-15 00:00:00 Completed [facility] Influenza Virus Vaccine 2019-04-15 00:00:00 Completed [facility] Influenza High Dose 2019-04-15 00:00:00 Completed [facility] Influenza Virus Vaccine 2019-04-15 00:00:00 Completed [facility] Influenza High Dose 2019-04-15 00:00:00 Completed [facility] Influenza Virus Vaccine 2019-04-15 00:00:00 Completed [facility] Influenza High Dose 2019-04-15 00:00:00 Completed [facility] Influenza Virus Vaccine 2019-04-15 00:00:00 Completed [facility] Influenza High Dose 2019-04-15 00:00:00 Completed [facility] Influenza Virus Vaccine 2019-04-15 00:00:00 Completed [facility] Influenza High Dose 2019-04-15 00:00:00 Completed [facility] Influenza Virus Vaccine 2019-04-15 00:00:00 Completed [facility] Influenza High Dose 2019-04-15 00:00:00 Completed [facility] Influenza Virus Vaccine 2019-04-15 00:00:00 Completed [facility] Influenza High Dose 2019-04-15 00:00:00 Completed [facility] Influenza Virus Vaccine 2019-04-15 00:00:00 Completed [facility] Influenza High Dose 2019-04-15 00:00:00 Completed [facility] Influenza Virus Vaccine 2019-04-15 00:00:00 Completed [facility] Influenza High Dose 2019-04-15 00:00:00 Completed [facility] Influenza Virus Vaccine 2019-04-15 00:00:00 Completed [facility] Influenza High Dose 2019-04-15 00:00:00 Completed [facility] Influenza Virus Vaccine 2019-04-15 00:00:00 Completed [facility] Influenza High Dose 2019-04-15 00:00:00 Completed [facility] Influenza Virus Vaccine 2019-04-15 00:00:00 Completed [facility] Influenza High Dose 2019-04-15 00:00:00 Completed [facility] Influenza Virus Vaccine 2019-04-15 00:00:00 Completed [facility] Influenza High Dose 2019-04-15 00:00:00 Completed [facility] Influenza Virus Vaccine 2019-04-15 00:00:00 Completed [facility] Influenza High Dose 2019-04-15 00:00:00 Completed [facility] Influenza Virus Vaccine 2019-04-15 00:00:00 Completed [facility] Influenza High Dose 2019-04-15 00:00:00 Completed [facility] Influenza Virus Vaccine 2019-04-15 00:00:00 Completed [facility] Influenza High Dose 2019-04-15 00:00:00 Completed [facility] Influenza Virus Vaccine 2019-04-15 00:00:00 Completed [facility] Influenza High Dose 2019-04-15 00:00:00 Completed [facility] Influenza Virus Vaccine 2019-04-15 00:00:00 Completed [facility] Influenza High Dose 2019-04-15 00:00:00 Completed [facility] Influenza Virus Vaccine 2019-04-15 00:00:00 Completed [facility] Influenza High Dose 2019-04-15 00:00:00 Completed [facility] Influenza Virus Vaccine 2019-04-15 00:00:00 Completed [facility] Influenza High Dose 2019-04-15 00:00:00 Completed [facility] Influenza Virus Vaccine 2019-04-15 00:00:00 Completed [facility] Influenza High Dose 2019-04-15 00:00:00 Completed [facility] Influenza Virus Vaccine 2019-04-15 00:00:00 Completed [facility] Influenza High Dose 2019-04-15 00:00:00 Completed [facility] Influenza Virus Vaccine 2019-04-15 00:00:00 Completed [facility] Influenza High Dose 2019-04-15 00:00:00 Completed [facility] Influenza Virus Vaccine 2019-04-15 00:00:00 Completed [facility] Influenza High Dose 2019-04-15 00:00:00 Completed [facility] Influenza Virus Vaccine 2019-04-15 00:00:00 Completed [facility] Influenza High Dose 2019-04-15 00:00:00 Completed [facility] Influenza Virus Vaccine 2019-04-15 00:00:00 Completed [facility] Influenza High Dose 2019-04-15 00:00:00 Completed [facility] Influenza Virus Vaccine 2019-04-15 00:00:00 Completed [facility] Influenza High Dose 2019-04-15 00:00:00 Completed [facility] Influenza Virus Vaccine 2019-04-15 00:00:00 Completed [facility] Influenza High Dose 2019-04-15 00:00:00 Completed [facility] Influenza Virus Vaccine 2019-04-15 00:00:00 Completed [facility] Influenza High Dose 2019-04-15 00:00:00 Completed [facility] Influenza Virus Vaccine 2019-04-15 00:00:00 Completed [facility] Influenza High Dose 2019-04-15 00:00:00 Completed [facility] Influenza Virus Vaccine 2019-04-15 00:00:00 Completed [facility] Influenza High Dose 2019-04-15 00:00:00 Completed [facility] Influenza Virus Vaccine 2019-04-15 00:00:00 Completed [facility] Influenza High Dose 2019-04-15 00:00:00 Completed [facility] Influenza Virus Vaccine 2019-04-15 00:00:00 Completed [facility] Influenza High Dose 2019-04-15 00:00:00 Completed [facility] Influenza Virus Vaccine 2019-04-15 00:00:00 Completed [facility] Influenza High Dose 2019-04-15 00:00:00 Completed [facility] Influenza Virus Vaccine 2019-04-15 00:00:00 Completed [facility] Influenza High Dose 2019-04-15 00:00:00 Completed [facility] Influenza Virus Vaccine 2019-04-15 00:00:00 Completed [facility] Influenza High Dose 2019-04-15 00:00:00 Completed [facility] Influenza Virus Vaccine 2019-04-15 00:00:00 Completed [facility] Influenza High Dose 2019-04-15 00:00:00 Completed [facility] Influenza Virus Vaccine 2019-04-15 00:00:00 Completed [facility] Influenza High Dose 2019-04-15 00:00:00 Completed [facility] Influenza Virus Vaccine 2019-04-15 00:00:00 Completed [facility] Influenza High Dose 2019-04-15 00:00:00 Completed [facility] Influenza Virus Vaccine 2019-04-15 00:00:00 Completed [facility] Influenza High Dose 2019-04-15 00:00:00 Completed [facility] Influenza Virus Vaccine 2019-04-15 00:00:00 Completed [facility] Influenza High Dose 2019-04-15 00:00:00 Completed [facility] Influenza Virus Vaccine 2019-04-15 00:00:00 Completed [facility] Influenza High Dose 2019-04-15 00:00:00 Completed [facility] Influenza Virus Vaccine 2019-04-15 00:00:00 Completed [facility] Influenza High Dose 2019-04-15 00:00:00 Completed [facility] Influenza Virus Vaccine 2019-04-15 00:00:00 Completed [facility] Influenza High Dose 2019-04-15 00:00:00 Completed [facility] Influenza Virus Vaccine 2019-04-15 00:00:00 Completed [facility] Influenza High Dose 2019-04-15 00:00:00 Completed [facility] Influenza Virus Vaccine 2019-04-15 00:00:00 Completed [facility] Influenza High Dose 2019-04-15 00:00:00 Completed [facility] Influenza Virus Vaccine 2019-04-15 00:00:00 Completed [facility] Influenza High Dose 2019-04-15 00:00:00 Completed [facility] Influenza Virus Vaccine 2019-04-15 00:00:00 Completed [facility] Influenza High Dose 2019-04-15 00:00:00 Completed [facility] Influenza Virus Vaccine 2019-04-15 00:00:00 Completed [facility] Influenza High Dose 2019-04-15 00:00:00 Completed [facility] Influenza Virus Vaccine 2019-04-15 00:00:00 Completed [facility] Influenza High Dose 2019-04-15 00:00:00 Completed [facility] Influenza Virus Vaccine 2019-04-15 00:00:00 Completed [facility] Influenza High Dose 2019-04-15 00:00:00 Completed [facility] Influenza Virus Vaccine 2019-04-15 00:00:00 Completed [facility] Influenza High Dose 2019-04-15 00:00:00 Completed [facility] Influenza Virus Vaccine 2019-04-15 00:00:00 Completed [facility] Influenza Virus Vaccine 2019-04-14 00:00:00 Completed [facility] Influenza Virus Vaccine 2019-04-14 00:00:00 Completed [facility] Influenza Virus Vaccine 2019-04-14 00:00:00 Completed [facility] Influenza Virus Vaccine 2019-04-14 00:00:00 Completed [facility] Influenza Virus Vaccine 2019-04-14 00:00:00 Completed [facility] Influenza Virus Vaccine 2019-04-14 00:00:00 Completed [facility] Influenza Virus Vaccine 2019-04-14 00:00:00 Completed [facility] Influenza Virus Vaccine 2019-04-14 00:00:00 Completed [facility] Influenza Virus Vaccine 2019-04-14 00:00:00 Completed [facility] Influenza Virus Vaccine 2019-04-14 00:00:00 Completed [facility] Influenza Virus Vaccine 2019-04-14 00:00:00 Completed [facility] Influenza Virus Vaccine 2019-04-14 00:00:00 Completed [facility] Influenza Virus Vaccine 2019-04-14 00:00:00 Completed [facility] Influenza Virus Vaccine 2019-04-14 00:00:00 Completed [facility] Influenza Virus Vaccine 2019-04-14 00:00:00 Completed [facility] Influenza Virus Vaccine 2019-04-14 00:00:00 Completed [facility] Influenza Virus Vaccine 2019-04-14 00:00:00 Completed [facility] Influenza Virus Vaccine 2019-04-14 00:00:00 Completed [facility] Influenza Virus Vaccine 2019-04-14 00:00:00 Completed [facility] Influenza Virus Vaccine 2019-04-14 00:00:00 Completed [facility] Influenza Virus Vaccine 2019-04-14 00:00:00 Completed [facility] Influenza Virus Vaccine 2019-04-14 00:00:00 Completed [facility] Influenza Virus Vaccine 2019-04-14 00:00:00 Completed [facility] Influenza Virus Vaccine 2019-04-14 00:00:00 Completed [facility] Influenza Virus Vaccine 2019-04-14 00:00:00 Completed [facility] Influenza Virus Vaccine 2019-04-14 00:00:00 Completed [facility] Influenza Virus Vaccine 2019-04-14 00:00:00 Completed [facility] Influenza Virus Vaccine 2019-04-14 00:00:00 Completed [facility] Influenza Virus Vaccine 2019-04-14 00:00:00 Completed [facility] Influenza Virus Vaccine 2019-04-14 00:00:00 Completed [facility] Influenza Virus Vaccine 2019-04-14 00:00:00 Completed [facility] Influenza Virus Vaccine 2019-04-14 00:00:00 Completed [facility] Influenza Virus Vaccine 2019-04-14 00:00:00 Completed [facility] Influenza Virus Vaccine 2019-04-14 00:00:00 Completed [facility] Influenza Virus Vaccine 2019-04-14 00:00:00 Completed [facility] Influenza Virus Vaccine 2019-04-14 00:00:00 Completed [facility] Influenza Virus Vaccine 2019-04-14 00:00:00 Completed [facility] Influenza Virus Vaccine 2019-04-14 00:00:00 Completed [facility] Influenza Virus Vaccine 2019-04-14 00:00:00 Completed [facility] Influenza Virus Vaccine 2019-04-14 00:00:00 Completed [facility] Influenza Virus Vaccine 2019-04-14 00:00:00 Completed [facility] Influenza Virus Vaccine 2019-04-14 00:00:00 Completed [facility] Influenza Virus Vaccine 2019-04-14 00:00:00 Completed [facility] Influenza Virus Vaccine 2019-04-14 00:00:00 Completed [facility] Influenza Virus Vaccine 2019-04-14 00:00:00 Completed [facility] Influenza Virus Vaccine 2019-04-14 00:00:00 Completed [facility] Influenza Virus Vaccine 2019-04-14 00:00:00 Completed [facility] Influenza Virus Vaccine 2019-04-14 00:00:00 Completed [facility] Influenza Virus Vaccine 2019-04-14 00:00:00 Completed [facility] Influenza Virus Vaccine 2019-04-14 00:00:00 Completed [facility] Influenza Virus Vaccine 2019-04-14 00:00:00 Completed [facility] Influenza Virus Vaccine 2019-04-14 00:00:00 Completed [facility] Influenza Virus Vaccine 2019-04-14 00:00:00 Completed [facility] Influenza Virus Vaccine 2019-04-14 00:00:00 Completed [facility] Influenza Virus Vaccine 2019-04-14 00:00:00 Completed [facility] Influenza Virus Vaccine 2019-04-14 00:00:00 Completed [facility] Influenza Virus Vaccine 2019-04-14 00:00:00 Completed [facility] Influenza Virus Vaccine 2019-04-14 00:00:00 Completed [facility] Influenza Virus Vaccine 2019-04-14 00:00:00 Completed [facility] Influenza Virus Vaccine 2019-04-14 00:00:00 Completed [facility] Influenza Virus Vaccine 2019-04-14 00:00:00 Completed [facility] Influenza Virus Vaccine 2019-04-14 00:00:00 Completed [facility] Influenza Virus Vaccine 2019-04-14 00:00:00 Completed [facility] Influenza Virus Vaccine 2019-04-14 00:00:00 Completed [facility] Influenza Virus Vaccine 2019-04-14 00:00:00 Completed [facility] Influenza Virus Vaccine 2019-04-14 00:00:00 Completed [facility] Influenza Virus Vaccine 2019-04-14 00:00:00 Completed [facility] Influenza Virus Vaccine 2019-04-14 00:00:00 Completed [facility] Influenza Virus Vaccine 2019-04-14 00:00:00 Completed [facility] Influenza Virus Vaccine 2019-04-14 00:00:00 Completed [facility] Influenza Virus Vaccine 2019-04-14 00:00:00 Completed [facility] Influenza Virus Vaccine 2019-04-14 00:00:00 Completed [facility] Influenza Virus Vaccine 2019-04-14 00:00:00 Completed [facility] Influenza Virus Vaccine 2019-04-14 00:00:00 Completed [facility] Influenza Virus Vaccine 2019-04-14 00:00:00 Completed [facility] Influenza Virus Vaccine 2019-04-14 00:00:00 Completed [facility] Influenza Virus Vaccine 2019-04-14 00:00:00 Completed [facility] Influenza Virus Vaccine 2019-04-14 00:00:00 Completed [facility] Influenza Virus Vaccine 2019-04-14 00:00:00 Completed [facility] Influenza Virus Vaccine 2019-04-14 00:00:00 Completed [facility] Influenza Virus Vaccine 2019-04-14 00:00:00 Completed [facility] Influenza Virus Vaccine 2019-04-14 00:00:00 Completed [facility] Influenza Virus Vaccine 2019-04-14 00:00:00 Completed [facility] Influenza Virus Vaccine 2019-04-14 00:00:00 Completed [facility] Influenza Virus Vaccine 2019-04-14 00:00:00 Completed [facility] Influenza Virus Vaccine 2019-04-14 00:00:00 Completed [facility] Influenza Virus Vaccine 2019-04-14 00:00:00 Completed [facility] Influenza Virus Vaccine 2019-04-14 00:00:00 Completed [facility] Influenza Virus Vaccine 2019-04-14 00:00:00 Completed [facility] Influenza Virus Vaccine 2019-04-14 00:00:00 Completed [facility] Influenza Virus Vaccine 2019-04-14 00:00:00 Completed [facility] Influenza Virus Vaccine 2019-04-14 00:00:00 Completed [facility] Influenza Virus Vaccine 2019-04-14 00:00:00 Completed [facility] Influenza Virus Vaccine 2019-04-14 00:00:00 Completed [facility] Influenza Virus Vaccine 2019-04-14 00:00:00 Completed [facility] Influenza Virus Vaccine 2019-04-14 00:00:00 Completed [facility] Influenza Virus Vaccine 2019-04-14 00:00:00 Completed [facility] Influenza Virus Vaccine 2019-04-14 00:00:00 Completed [facility] Influenza Virus Vaccine 2019-04-14 00:00:00 Completed [facility] Influenza Virus Vaccine 2019-04-14 00:00:00 Completed [facility] Influenza Virus Vaccine 2019-04-14 00:00:00 Completed [facility] Influenza Virus Vaccine 2019-04-14 00:00:00 Completed [facility] Influenza Virus Vaccine 2019-04-14 00:00:00 Completed [facility] Influenza Virus Vaccine 2019-04-14 00:00:00 Completed [facility] Influenza Virus Vaccine 2019-04-14 00:00:00 Completed [facility] Influenza Virus Vaccine 2019-04-14 00:00:00 Completed [facility] Influenza Virus Vaccine 2019-04-14 00:00:00 Completed [facility] Influenza Virus Vaccine 2019-04-14 00:00:00 Completed [facility] Influenza Virus Vaccine 2019-04-14 00:00:00 Completed [facility] Influenza Virus Vaccine 2019-04-14 00:00:00 Completed [facility] Influenza Virus Vaccine 2019-04-14 00:00:00 Completed [facility] Influenza Virus Vaccine 2019-04-14 00:00:00 Completed [facility] Influenza Virus Vaccine 2019-04-14 00:00:00 Completed [facility] Influenza Virus Vaccine 2019-04-14 00:00:00 Completed [facility] Influenza Virus Vaccine 2019-04-14 00:00:00 Completed [facility] Influenza Virus Vaccine 2019-04-14 00:00:00 Completed [facility] Influenza Virus Vaccine 2019-04-14 00:00:00 Completed [facility] Influenza Virus Vaccine 2019-04-14 00:00:00 Completed [facility] Influenza Virus Vaccine 2019-04-14 00:00:00 Completed [facility] Influenza Virus Vaccine 2019-04-14 00:00:00 Completed [facility] Influenza Virus Vaccine 2019-04-14 00:00:00 Completed [facility] Influenza Virus Vaccine 2019-04-14 00:00:00 Completed [facility] Influenza Virus Vaccine 2019-04-14 00:00:00 Completed [facility] Influenza Virus Vaccine 2019-04-14 00:00:00 Completed [facility] Influenza Virus Vaccine 2019-04-14 00:00:00 Completed [facility] Influenza Virus Vaccine 2019-04-14 00:00:00 Completed [facility] Influenza Virus Vaccine 2019-04-14 00:00:00 Completed [facility] Influenza Virus Vaccine 2019-04-14 00:00:00 Completed [facility] Influenza Virus Vaccine 2019-04-14 00:00:00 Completed [facility] Influenza Virus Vaccine 2019-04-14 00:00:00 Completed [facility] Influenza Virus Vaccine 2019-04-14 00:00:00 Completed [facility] Influenza Virus Vaccine 2019-04-14 00:00:00 Completed [facility] Influenza Virus Vaccine 2019-04-14 00:00:00 Completed [facility] Influenza Virus Vaccine 2019-04-14 00:00:00 Completed [facility] Influenza Virus Vaccine 2019-04-14 00:00:00 Completed [facility] Influenza Virus Vaccine 2019-04-14 00:00:00 Completed [facility] Influenza Virus Vaccine 2019-04-14 00:00:00 Completed [facility] Influenza Virus Vaccine 2019-04-14 00:00:00 Completed [facility] Influenza Virus Vaccine 2019-04-14 00:00:00 Completed [facility] Influenza Virus Vaccine 2019-04-14 00:00:00 Completed [facility] Influenza Virus Vaccine 2019-04-14 00:00:00 Completed [facility] Influenza Virus Vaccine 2019-04-14 00:00:00 Completed [facility] Influenza Virus Vaccine 2019-04-14 00:00:00 Completed [facility] Influenza Virus Vaccine 2019-04-14 00:00:00 Completed [facility] Influenza Virus Vaccine 2019-04-14 00:00:00 Completed [facility] Influenza Virus Vaccine 2019-04-14 00:00:00 Completed [facility] Influenza Virus Vaccine 2019-04-14 00:00:00 Completed [facility] Influenza Virus Vaccine 2019-04-14 00:00:00 Completed [facility] Influenza Virus Vaccine 2019-04-14 00:00:00 Completed [facility] Influenza Virus Vaccine 2019-04-14 00:00:00 Completed [facility] Influenza Virus Vaccine 2019-04-14 00:00:00 Completed [facility] Influenza Virus Vaccine 2019-04-14 00:00:00 Completed [facility] Influenza Virus Vaccine 2019-04-14 00:00:00 Completed [facility] Influenza Virus Vaccine 2019-04-14 00:00:00 Completed [facility] Influenza Virus Vaccine 2019-04-14 00:00:00 Completed [facility] Influenza Virus Vaccine 2019-04-14 00:00:00 Completed [facility] Influenza Virus Vaccine 2019-04-14 00:00:00 Completed [facility] Influenza Virus Vaccine 2019-04-14 00:00:00 Completed [facility] Influenza Virus Vaccine 2019-04-14 00:00:00 Completed [facility] Influenza Virus Vaccine 2019-04-14 00:00:00 Completed [facility] Influenza Virus Vaccine 2019-04-14 00:00:00 Completed [facility] Influenza Virus Vaccine 2019-04-14 00:00:00 Completed [facility] Influenza Virus Vaccine 2019-04-14 00:00:00 Completed [facility] Influenza Virus Vaccine 2019-04-14 00:00:00 Completed [facility] Influenza Virus Vaccine Quad IM Multi-dose 6+ MO 2019-04-03 00:00:00 Completed [facility] Pneumococcal Polysaccharide, PPSV23 (PNEUMOVAX) 2019-04-03 00:00:00 Completed [facility] Influenza Virus Vaccine Quad IM Multi-dose 6+ MO 2019-04-03 00:00:00 Completed [facility] Pneumococcal Polysaccharide, PPSV23 (PNEUMOVAX) 2019-04-03 00:00:00 Completed [facility] Influenza Virus Vaccine Quad IM Multi-dose 6+ MO 2019-04-03 00:00:00 Completed [facility] Pneumococcal Polysaccharide, PPSV23 (PNEUMOVAX) 2019-04-03 00:00:00 Completed [facility] Influenza Virus Vaccine Quad IM Multi-dose 6+ MO 2019-04-03 00:00:00 Completed [facility] Pneumococcal Polysaccharide, PPSV23 (PNEUMOVAX) 2019-04-03 00:00:00 Completed [facility] Influenza Virus Vaccine Quad IM Multi-dose 6+ MO 2019-04-03 00:00:00 Completed [facility] Pneumococcal Polysaccharide, PPSV23 (PNEUMOVAX) 2019-04-03 00:00:00 Completed [facility] Influenza Virus Vaccine Quad IM Multi-dose 6+ MO 2019-04-03 00:00:00 Completed [facility] Pneumococcal Polysaccharide, PPSV23 (PNEUMOVAX) 2019-04-03 00:00:00 Completed [facility] Influenza Virus Vaccine Quad IM Multi-dose 6+ MO 2019-04-03 00:00:00 Completed [facility] Pneumococcal Polysaccharide, PPSV23 (PNEUMOVAX) 2019-04-03 00:00:00 Completed [facility] Influenza Virus Vaccine Quad IM Multi-dose 6+ MO 2019-04-03 00:00:00 Completed [facility] Pneumococcal Polysaccharide, PPSV23 (PNEUMOVAX) 2019-04-03 00:00:00 Completed [facility] Influenza Virus Vaccine Quad IM Multi-dose 6+ MO 2019-04-03 00:00:00 Completed [facility] Pneumococcal Polysaccharide, PPSV23 (PNEUMOVAX) 2019-04-03 00:00:00 Completed [facility] Influenza Virus Vaccine Quad IM Multi-dose 6+ MO 2019-04-03 00:00:00 Completed [facility] Pneumococcal Polysaccharide, PPSV23 (PNEUMOVAX) 2019-04-03 00:00:00 Completed [facility] Influenza Virus Vaccine Quad IM Multi-dose 6+ MO 2019-04-03 00:00:00 Completed [facility] Pneumococcal Polysaccharide, PPSV23 (PNEUMOVAX) 2019-04-03 00:00:00 Completed [facility] Influenza Virus Vaccine Quad IM Multi-dose 6+ MO 2019-04-03 00:00:00 Completed [facility] Pneumococcal Polysaccharide, PPSV23 (PNEUMOVAX) 2019-04-03 00:00:00 Completed [facility] Influenza Virus Vaccine Quad IM Multi-dose 6+ MO 2019-04-03 00:00:00 Completed [facility] Pneumococcal Polysaccharide, PPSV23 (PNEUMOVAX) 2019-04-03 00:00:00 Completed [facility] Influenza Virus Vaccine Quad IM Multi-dose 6+ MO 2019-04-03 00:00:00 Completed [facility] Pneumococcal Polysaccharide, PPSV23 (PNEUMOVAX) 2019-04-03 00:00:00 Completed [facility] Influenza Virus Vaccine Quad IM Multi-dose 6+ MO 2019-04-03 00:00:00 Completed [facility] Pneumococcal Polysaccharide, PPSV23 (PNEUMOVAX) 2019-04-03 00:00:00 Completed [facility] Influenza Virus Vaccine Quad IM Multi-dose 6+ MO 2019-04-03 00:00:00 Completed [facility] Pneumococcal Polysaccharide, PPSV23 (PNEUMOVAX) 2019-04-03 00:00:00 Completed [facility] Influenza Virus Vaccine Quad IM Multi-dose 6+ MO 2019-04-03 00:00:00 Completed [facility] Pneumococcal Polysaccharide, PPSV23 (PNEUMOVAX) 2019-04-03 00:00:00 Completed [facility] Influenza Virus Vaccine Quad IM Multi-dose 6+ MO 2019-04-03 00:00:00 Completed [facility] Pneumococcal Polysaccharide, PPSV23 (PNEUMOVAX) 2019-04-03 00:00:00 Completed [facility] Influenza Virus Vaccine Quad IM Multi-dose 6+ MO 2019-04-03 00:00:00 Completed [facility] Pneumococcal Polysaccharide, PPSV23 (PNEUMOVAX) 2019-04-03 00:00:00 Completed [facility] Influenza Virus Vaccine Quad IM Multi-dose 6+ MO 2019-04-03 00:00:00 Completed [facility] Pneumococcal Polysaccharide, PPSV23 (PNEUMOVAX) 2019-04-03 00:00:00 Completed [facility] Influenza Virus Vaccine Quad IM Multi-dose 6+ MO 2019-04-03 00:00:00 Completed [facility] Pneumococcal Polysaccharide, PPSV23 (PNEUMOVAX) 2019-04-03 00:00:00 Completed [facility] Influenza Virus Vaccine Quad IM Multi-dose 6+ MO 2019-04-03 00:00:00 Completed [facility] Pneumococcal Polysaccharide, PPSV23 (PNEUMOVAX) 2019-04-03 00:00:00 Completed [facility] Influenza Virus Vaccine Quad IM Multi-dose 6+ MO 2019-04-03 00:00:00 Completed [facility] Pneumococcal Polysaccharide, PPSV23 (PNEUMOVAX) 2019-04-03 00:00:00 Completed [facility] Influenza Virus Vaccine Quad IM Multi-dose 6+ MO 2019-04-03 00:00:00 Completed [facility] Pneumococcal Polysaccharide, PPSV23 (PNEUMOVAX) 2019-04-03 00:00:00 Completed [facility] Influenza Virus Vaccine Quad IM Multi-dose 6+ MO 2019-04-03 00:00:00 Completed [facility] Pneumococcal Polysaccharide, PPSV23 (PNEUMOVAX) 2019-04-03 00:00:00 Completed [facility] Influenza Virus Vaccine Quad IM Multi-dose 6+ MO 2019-04-03 00:00:00 Completed [facility] Pneumococcal Polysaccharide, PPSV23 (PNEUMOVAX) 2019-04-03 00:00:00 Completed [facility] Influenza Virus Vaccine Quad IM Multi-dose 6+ MO 2019-04-03 00:00:00 Completed [facility] Pneumococcal Polysaccharide, PPSV23 (PNEUMOVAX) 2019-04-03 00:00:00 Completed [facility] Influenza Virus Vaccine Quad IM Multi-dose 6+ MO 2019-04-03 00:00:00 Completed [facility] Pneumococcal Polysaccharide, PPSV23 (PNEUMOVAX) 2019-04-03 00:00:00 Completed [facility] Influenza Virus Vaccine Quad IM Multi-dose 6+ MO 2019-04-03 00:00:00 Completed [facility] Pneumococcal Polysaccharide, PPSV23 (PNEUMOVAX) 2019-04-03 00:00:00 Completed [facility] Influenza Virus Vaccine Quad IM Multi-dose 6+ MO 2019-04-03 00:00:00 Completed [facility] Pneumococcal Polysaccharide, PPSV23 (PNEUMOVAX) 2019-04-03 00:00:00 Completed [facility] Influenza Virus Vaccine Quad IM Multi-dose 6+ MO 2019-04-03 00:00:00 Completed [facility] Pneumococcal Polysaccharide, PPSV23 (PNEUMOVAX) 2019-04-03 00:00:00 Completed [facility] Influenza Virus Vaccine Quad IM Multi-dose 6+ MO 2019-04-03 00:00:00 Completed [facility] Pneumococcal Polysaccharide, PPSV23 (PNEUMOVAX) 2019-04-03 00:00:00 Completed [facility] Influenza Virus Vaccine Quad IM Multi-dose 6+ MO 2019-04-03 00:00:00 Completed [facility] Pneumococcal Polysaccharide, PPSV23 (PNEUMOVAX) 2019-04-03 00:00:00 Completed [facility] Influenza Virus Vaccine Quad IM Multi-dose 6+ MO 2019-04-03 00:00:00 Completed [facility] Pneumococcal Polysaccharide, PPSV23 (PNEUMOVAX) 2019-04-03 00:00:00 Completed [facility] Influenza Virus Vaccine Quad IM Multi-dose 6+ MO 2019-04-03 00:00:00 Completed [facility] Pneumococcal Polysaccharide, PPSV23 (PNEUMOVAX) 2019-04-03 00:00:00 Completed [facility] Influenza Virus Vaccine Quad IM Multi-dose 6+ MO 2019-04-03 00:00:00 Completed [facility] Pneumococcal Polysaccharide, PPSV23 (PNEUMOVAX) 2019-04-03 00:00:00 Completed [facility] Influenza Virus Vaccine Quad IM Multi-dose 6+ MO 2019-04-03 00:00:00 Completed [facility] Pneumococcal Polysaccharide, PPSV23 (PNEUMOVAX) 2019-04-03 00:00:00 Completed [facility] Influenza Virus Vaccine Quad IM Multi-dose 6+ MO 2019-04-03 00:00:00 Completed [facility] Pneumococcal Polysaccharide, PPSV23 (PNEUMOVAX) 2019-04-03 00:00:00 Completed [facility] Influenza Virus Vaccine Quad IM Multi-dose 6+ MO 2019-04-03 00:00:00 Completed [facility] Pneumococcal Polysaccharide, PPSV23 (PNEUMOVAX) 2019-04-03 00:00:00 Completed [facility] Influenza Virus Vaccine Quad IM Multi-dose 6+ MO 2019-04-03 00:00:00 Completed [facility] Pneumococcal Polysaccharide, PPSV23 (PNEUMOVAX) 2019-04-03 00:00:00 Completed [facility] Influenza Virus Vaccine Quad IM Multi-dose 6+ MO 2019-04-03 00:00:00 Completed [facility] Pneumococcal Polysaccharide, PPSV23 (PNEUMOVAX) 2019-04-03 00:00:00 Completed [facility] Influenza Virus Vaccine Quad IM Multi-dose 6+ MO 2019-04-03 00:00:00 Completed [facility] Pneumococcal Polysaccharide, PPSV23 (PNEUMOVAX) 2019-04-03 00:00:00 Completed [facility] Influenza Virus Vaccine Quad IM Multi-dose 6+ MO 2019-04-03 00:00:00 Completed [facility] Pneumococcal Polysaccharide, PPSV23 (PNEUMOVAX) 2019-04-03 00:00:00 Completed [facility] Influenza Virus Vaccine Quad IM Multi-dose 6+ MO 2019-04-03 00:00:00 Completed [facility] Pneumococcal Polysaccharide, PPSV23 (PNEUMOVAX) 2019-04-03 00:00:00 Completed [facility] Influenza Virus Vaccine Quad IM Multi-dose 6+ MO 2019-04-03 00:00:00 Completed [facility] Pneumococcal Polysaccharide, PPSV23 (PNEUMOVAX) 2019-04-03 00:00:00 Completed [facility] Influenza Virus Vaccine Quad IM Multi-dose 6+ MO 2019-04-03 00:00:00 Completed [facility] Pneumococcal Polysaccharide, PPSV23 (PNEUMOVAX) 2019-04-03 00:00:00 Completed [facility] Influenza Virus Vaccine Quad IM Multi-dose 6+ MO 2019-04-03 00:00:00 Completed [facility] Pneumococcal Polysaccharide, PPSV23 (PNEUMOVAX) 2019-04-03 00:00:00 Completed [facility] Influenza Virus Vaccine Quad IM Multi-dose 6+ MO 2019-04-03 00:00:00 Completed [facility] Pneumococcal Polysaccharide, PPSV23 (PNEUMOVAX) 2019-04-03 00:00:00 Completed [facility] Influenza Virus Vaccine Quad IM Multi-dose 6+ MO 2019-04-03 00:00:00 Completed [facility] Pneumococcal Polysaccharide, PPSV23 (PNEUMOVAX) 2019-04-03 00:00:00 Completed [facility] Influenza Virus Vaccine Quad IM Multi-dose 6+ MO 2019-04-03 00:00:00 Completed [facility] Pneumococcal Polysaccharide, PPSV23 (PNEUMOVAX) 2019-04-03 00:00:00 Completed [facility] Influenza Virus Vaccine Quad IM Multi-dose 6+ MO 2019-04-03 00:00:00 Completed [facility] Pneumococcal Polysaccharide, PPSV23 (PNEUMOVAX) 2019-04-03 00:00:00 Completed [facility] Influenza Virus Vaccine Quad IM Multi-dose 6+ MO 2019-04-03 00:00:00 Completed [facility] Pneumococcal Polysaccharide, PPSV23 (PNEUMOVAX) 2019-04-03 00:00:00 Completed [facility] Influenza Virus Vaccine Quad IM Multi-dose 6+ MO 2019-04-03 00:00:00 Completed [facility] Pneumococcal Polysaccharide, PPSV23 (PNEUMOVAX) 2019-04-03 00:00:00 Completed [facility] Influenza Virus Vaccine Quad IM Multi-dose 6+ MO 2019-04-03 00:00:00 Completed [facility] Pneumococcal Polysaccharide, PPSV23 (PNEUMOVAX) 2019-04-03 00:00:00 Completed [facility] Influenza Virus Vaccine Quad IM Multi-dose 6+ MO 2019-04-03 00:00:00 Completed [facility] Pneumococcal Polysaccharide, PPSV23 (PNEUMOVAX) 2019-04-03 00:00:00 Completed [facility] Influenza Virus Vaccine Quad IM Multi-dose 6+ MO 2019-04-03 00:00:00 Completed [facility] Pneumococcal Polysaccharide, PPSV23 (PNEUMOVAX) 2019-04-03 00:00:00 Completed [facility] Influenza Virus Vaccine Quad IM Multi-dose 6+ MO 2019-04-03 00:00:00 Completed [facility] Pneumococcal Polysaccharide, PPSV23 (PNEUMOVAX) 2019-04-03 00:00:00 Completed [facility] Influenza Virus Vaccine Quad IM Multi-dose 6+ MO 2019-04-03 00:00:00 Completed [facility] Pneumococcal Polysaccharide, PPSV23 (PNEUMOVAX) 2019-04-03 00:00:00 Completed [facility] Influenza Virus Vaccine Quad IM Multi-dose 6+ MO 2019-04-03 00:00:00 Completed [facility] Pneumococcal Polysaccharide, PPSV23 (PNEUMOVAX) 2019-04-03 00:00:00 Completed [facility] Influenza Virus Vaccine Quad IM Multi-dose 6+ MO 2019-04-03 00:00:00 Completed [facility] Pneumococcal Polysaccharide, PPSV23 (PNEUMOVAX) 2019-04-03 00:00:00 Completed [facility] Influenza Virus Vaccine Quad IM Multi-dose 6+ MO 2019-04-03 00:00:00 Completed [facility] Pneumococcal Polysaccharide, PPSV23 (PNEUMOVAX) 2019-04-03 00:00:00 Completed [facility] Influenza Virus Vaccine Quad IM Multi-dose 6+ MO 2019-04-03 00:00:00 Completed [facility] Pneumococcal Polysaccharide, PPSV23 (PNEUMOVAX) 2019-04-03 00:00:00 Completed [facility] Influenza Virus Vaccine Quad IM Multi-dose 6+ MO 2019-04-03 00:00:00 Completed [facility] Pneumococcal Polysaccharide, PPSV23 (PNEUMOVAX) 2019-04-03 00:00:00 Completed [facility] Influenza Virus Vaccine Quad IM Multi-dose 6+ MO 2019-04-03 00:00:00 Completed [facility] Pneumococcal Polysaccharide, PPSV23 (PNEUMOVAX) 2019-04-03 00:00:00 Completed [facility] Influenza Virus Vaccine Quad IM Multi-dose 6+ MO 2019-04-03 00:00:00 Completed [facility] Pneumococcal Polysaccharide, PPSV23 (PNEUMOVAX) 2019-04-03 00:00:00 Completed [facility] Influenza Virus Vaccine Quad IM Multi-dose 6+ MO 2019-04-03 00:00:00 Completed [facility] Pneumococcal Polysaccharide, PPSV23 (PNEUMOVAX) 2019-04-03 00:00:00 Completed [facility] Influenza Virus Vaccine Quad IM Multi-dose 6+ MO 2019-04-03 00:00:00 Completed [facility] Pneumococcal Polysaccharide, PPSV23 (PNEUMOVAX) 2019-04-03 00:00:00 Completed [facility] Influenza Virus Vaccine Quad IM Multi-dose 6+ MO 2019-04-03 00:00:00 Completed [facility] Pneumococcal Polysaccharide, PPSV23 (PNEUMOVAX) 2019-04-03 00:00:00 Completed [facility] Influenza Virus Vaccine Quad IM Multi-dose 6+ MO 2019-04-03 00:00:00 Completed [facility] Pneumococcal Polysaccharide, PPSV23 (PNEUMOVAX) 2019-04-03 00:00:00 Completed [facility] Influenza Virus Vaccine Quad IM Multi-dose 6+ MO 2019-04-03 00:00:00 Completed [facility] Pneumococcal Polysaccharide, PPSV23 (PNEUMOVAX) 2019-04-03 00:00:00 Completed [facility] Influenza Virus Vaccine Quad IM Multi-dose 6+ MO 2019-04-03 00:00:00 Completed [facility] Pneumococcal Polysaccharide, PPSV23 (PNEUMOVAX) 2019-04-03 00:00:00 Completed [facility] Influenza Virus Vaccine Quad IM Multi-dose 6+ MO 2019-04-03 00:00:00 Completed [facility] Pneumococcal Polysaccharide, PPSV23 (PNEUMOVAX) 2019-04-03 00:00:00 Completed [facility] Influenza Virus Vaccine Quad IM Multi-dose 6+ MO 2019-04-03 00:00:00 Completed [facility] Pneumococcal Polysaccharide, PPSV23 (PNEUMOVAX) 2019-04-03 00:00:00 Completed [facility] Influenza Virus Vaccine Quad IM Multi-dose 6+ MO 2019-04-03 00:00:00 Completed [facility] Pneumococcal Polysaccharide, PPSV23 (PNEUMOVAX) 2019-04-03 00:00:00 Completed [facility] Influenza Virus Vaccine Quad IM Multi-dose 6+ MO 2019-04-03 00:00:00 Completed [facility] Pneumococcal Polysaccharide, PPSV23 (PNEUMOVAX) 2019-04-03 00:00:00 Completed [facility] Influenza Virus Vaccine Quad IM Multi-dose 6+ MO 2019-04-03 00:00:00 Completed [facility] Pneumococcal Polysaccharide, PPSV23 (PNEUMOVAX) 2019-04-03 00:00:00 Completed [facility] Influenza Virus Vaccine Quad IM Multi-dose 6+ MO 2019-04-03 00:00:00 Completed [facility] Pneumococcal Polysaccharide, PPSV23 (PNEUMOVAX) 2019-04-03 00:00:00 Completed [facility] Influenza Virus Vaccine Quad IM Multi-dose 6+ MO 2019-04-03 00:00:00 Completed [facility] Pneumococcal Polysaccharide, PPSV23 (PNEUMOVAX) 2019-04-03 00:00:00 Completed [facility] Influenza Virus Vaccine Quad IM Multi-dose 6+ MO 2019-04-03 00:00:00 Completed [facility] Pneumococcal Polysaccharide, PPSV23 (PNEUMOVAX) 2019-04-03 00:00:00 Completed [facility] Influenza Virus Vaccine Quad IM Multi-dose 6+ MO 2019-04-03 00:00:00 Completed [facility] Pneumococcal Polysaccharide, PPSV23 (PNEUMOVAX) 2019-04-03 00:00:00 Completed [facility] Influenza Virus Vaccine Quad IM Multi-dose 6+ MO 2019-04-03 00:00:00 Completed [facility] Pneumococcal Polysaccharide, PPSV23 (PNEUMOVAX) 2019-04-03 00:00:00 Completed [facility] Influenza Virus Vaccine Quad IM Multi-dose 6+ MO 2019-04-03 00:00:00 Completed [facility] Pneumococcal Polysaccharide, PPSV23 (PNEUMOVAX) 2019-04-03 00:00:00 Completed [facility] Influenza Virus Vaccine Quad IM Multi-dose 6+ MO 2019-04-03 00:00:00 Completed [facility] Pneumococcal Polysaccharide, PPSV23 (PNEUMOVAX) 2019-04-03 00:00:00 Completed [facility] Influenza Virus Vaccine Quad IM Multi-dose 6+ MO 2019-04-03 00:00:00 Completed [facility] Pneumococcal Polysaccharide, PPSV23 (PNEUMOVAX) 2019-04-03 00:00:00 Completed [facility] Influenza Virus Vaccine Quad IM Multi-dose 6+ MO 2019-04-03 00:00:00 Completed [facility] Pneumococcal Polysaccharide, PPSV23 (PNEUMOVAX) 2019-04-03 00:00:00 Completed [facility] Influenza Virus Vaccine Quad IM Multi-dose 6+ MO 2019-04-03 00:00:00 Completed [facility] Pneumococcal Polysaccharide, PPSV23 (PNEUMOVAX) 2019-04-03 00:00:00 Completed [facility] Influenza Virus Vaccine Quad IM Multi-dose 6+ MO 2019-04-03 00:00:00 Completed [facility] Pneumococcal Polysaccharide, PPSV23 (PNEUMOVAX) 2019-04-03 00:00:00 Completed [facility] Influenza Virus Vaccine Quad IM Multi-dose 6+ MO 2019-04-03 00:00:00 Completed [facility] Pneumococcal Polysaccharide, PPSV23 (PNEUMOVAX) 2019-04-03 00:00:00 Completed [facility] Influenza Virus Vaccine Quad IM Multi-dose 6+ MO 2019-04-03 00:00:00 Completed [facility] Pneumococcal Polysaccharide, PPSV23 (PNEUMOVAX) 2019-04-03 00:00:00 Completed [facility] Influenza Virus Vaccine Quad IM Multi-dose 6+ MO 2019-04-03 00:00:00 Completed [facility] Pneumococcal Polysaccharide, PPSV23 (PNEUMOVAX) 2019-04-03 00:00:00 Completed [facility] Influenza Virus Vaccine Quad IM Multi-dose 6+ MO 2019-04-03 00:00:00 Completed [facility] Pneumococcal Polysaccharide, PPSV23 (PNEUMOVAX) 2019-04-03 00:00:00 Completed [facility] Influenza Virus Vaccine Quad IM Multi-dose 6+ MO 2019-04-03 00:00:00 Completed [facility] Pneumococcal Polysaccharide, PPSV23 (PNEUMOVAX) 2019-04-03 00:00:00 Completed [facility] Influenza Virus Vaccine Quad IM Multi-dose 6+ MO 2019-04-03 00:00:00 Completed [facility] Pneumococcal Polysaccharide, PPSV23 (PNEUMOVAX) 2019-04-03 00:00:00 Completed [facility] Influenza Virus Vaccine Quad IM Multi-dose 6+ MO 2019-04-03 00:00:00 Completed [facility] Pneumococcal Polysaccharide, PPSV23 (PNEUMOVAX) 2019-04-03 00:00:00 Completed [facility] Influenza Virus Vaccine Quad IM Multi-dose 6+ MO 2019-04-03 00:00:00 Completed [facility] Pneumococcal Polysaccharide, PPSV23 (PNEUMOVAX) 2019-04-03 00:00:00 Completed [facility] Influenza Virus Vaccine Quad IM Multi-dose 6+ MO 2019-04-03 00:00:00 Completed [facility] Pneumococcal Polysaccharide, PPSV23 (PNEUMOVAX) 2019-04-03 00:00:00 Completed [facility] Influenza Virus Vaccine Quad IM Multi-dose 6+ MO 2019-04-03 00:00:00 Completed [facility] Pneumococcal Polysaccharide, PPSV23 (PNEUMOVAX) 2019-04-03 00:00:00 Completed [facility] Influenza Virus Vaccine Quad IM Multi-dose 6+ MO 2019-04-03 00:00:00 Completed [facility] Pneumococcal Polysaccharide, PPSV23 (PNEUMOVAX) 2019-04-03 00:00:00 Completed [facility] Influenza Virus Vaccine Quad IM Multi-dose 6+ MO 2019-04-03 00:00:00 Completed [facility] Pneumococcal Polysaccharide, PPSV23 (PNEUMOVAX) 2019-04-03 00:00:00 Completed [facility] Influenza Virus Vaccine Quad IM Multi-dose 6+ MO 2019-04-03 00:00:00 Completed [facility] Pneumococcal Polysaccharide, PPSV23 (PNEUMOVAX) 2019-04-03 00:00:00 Completed [facility] Influenza Virus Vaccine Quad IM Multi-dose 6+ MO 2019-04-03 00:00:00 Completed [facility] Pneumococcal Polysaccharide, PPSV23 (PNEUMOVAX) 2019-04-03 00:00:00 Completed [facility] Influenza Virus Vaccine Quad IM Multi-dose 6+ MO 2019-04-03 00:00:00 Completed [facility] Pneumococcal Polysaccharide, PPSV23 (PNEUMOVAX) 2019-04-03 00:00:00 Completed [facility] Influenza Virus Vaccine Quad IM Multi-dose 6+ MO 2019-04-03 00:00:00 Completed [facility] Pneumococcal Polysaccharide, PPSV23 (PNEUMOVAX) 2019-04-03 00:00:00 Completed [facility] Influenza Virus Vaccine Quad IM Multi-dose 6+ MO 2019-04-03 00:00:00 Completed [facility] Pneumococcal Polysaccharide, PPSV23 (PNEUMOVAX) 2019-04-03 00:00:00 Completed [facility] Influenza Virus Vaccine Quad IM Multi-dose 6+ MO 2019-04-03 00:00:00 Completed [facility] Pneumococcal Polysaccharide, PPSV23 (PNEUMOVAX) 2019-04-03 00:00:00 Completed [facility] Influenza Virus Vaccine Quad IM Multi-dose 6+ MO 2019-04-03 00:00:00 Completed [facility] Pneumococcal Polysaccharide, PPSV23 (PNEUMOVAX) 2019-04-03 00:00:00 Completed [facility] Influenza Virus Vaccine Quad IM Multi-dose 6+ MO 2019-04-03 00:00:00 Completed [facility] Pneumococcal Polysaccharide, PPSV23 (PNEUMOVAX) 2019-04-03 00:00:00 Completed [facility] Influenza Virus Vaccine Quad IM Multi-dose 6+ MO 2019-04-03 00:00:00 Completed [facility] Pneumococcal Polysaccharide, PPSV23 (PNEUMOVAX) 2019-04-03 00:00:00 Completed [facility] Influenza Virus Vaccine Quad IM Multi-dose 6+ MO 2019-04-03 00:00:00 Completed [facility] Pneumococcal Polysaccharide, PPSV23 (PNEUMOVAX) 2019-04-03 00:00:00 Completed [facility] Influenza Virus Vaccine Quad IM Multi-dose 6+ MO 2019-04-03 00:00:00 Completed [facility] Pneumococcal Polysaccharide, PPSV23 (PNEUMOVAX) 2019-04-03 00:00:00 Completed [facility] Influenza Virus Vaccine Quad IM Multi-dose 6+ MO 2019-04-03 00:00:00 Completed [facility] Pneumococcal Polysaccharide, PPSV23 (PNEUMOVAX) 2019-04-03 00:00:00 Completed [facility] Influenza Virus Vaccine Quad IM Multi-dose 6+ MO 2019-04-03 00:00:00 Completed [facility] Pneumococcal Polysaccharide, PPSV23 (PNEUMOVAX) 2019-04-03 00:00:00 Completed [facility] Influenza Virus Vaccine Quad IM Multi-dose 6+ MO 2019-04-03 00:00:00 Completed [facility] Pneumococcal Polysaccharide, PPSV23 (PNEUMOVAX) 2019-04-03 00:00:00 Completed [facility] Influenza Virus Vaccine Quad IM Multi-dose 6+ MO 2019-04-03 00:00:00 Completed [facility] Pneumococcal Polysaccharide, PPSV23 (PNEUMOVAX) 2019-04-03 00:00:00 Completed [facility] Influenza Virus Vaccine Quad IM Multi-dose 6+ MO 2019-04-03 00:00:00 Completed [facility] Pneumococcal Polysaccharide, PPSV23 (PNEUMOVAX) 2019-04-03 00:00:00 Completed [facility] Influenza Virus Vaccine Quad IM Multi-dose 6+ MO 2019-04-03 00:00:00 Completed [facility] Pneumococcal Polysaccharide, PPSV23 (PNEUMOVAX) 2019-04-03 00:00:00 Completed [facility] Influenza Virus Vaccine Quad IM Multi-dose 6+ MO 2019-04-03 00:00:00 Completed [facility] Pneumococcal Polysaccharide, PPSV23 (PNEUMOVAX) 2019-04-03 00:00:00 Completed [facility] Influenza Virus Vaccine Quad IM Multi-dose 6+ MO 2019-04-03 00:00:00 Completed [facility] Pneumococcal Polysaccharide, PPSV23 (PNEUMOVAX) 2019-04-03 00:00:00 Completed [facility] Influenza Virus Vaccine Quad IM Multi-dose 6+ MO 2019-04-03 00:00:00 Completed [facility] Pneumococcal Polysaccharide, PPSV23 (PNEUMOVAX) 2019-04-03 00:00:00 Completed [facility] Influenza Virus Vaccine Quad IM Multi-dose 6+ MO 2019-04-03 00:00:00 Completed [facility] Pneumococcal Polysaccharide, PPSV23 (PNEUMOVAX) 2019-04-03 00:00:00 Completed [facility] Influenza Virus Vaccine Quad IM Multi-dose 6+ MO 2019-04-03 00:00:00 Completed [facility] Pneumococcal Polysaccharide, PPSV23 (PNEUMOVAX) 2019-04-03 00:00:00 Completed [facility] Influenza Virus Vaccine Quad IM Multi-dose 6+ MO 2019-04-03 00:00:00 Completed [facility] Pneumococcal Polysaccharide, PPSV23 (PNEUMOVAX) 2019-04-03 00:00:00 Completed [facility] Influenza Virus Vaccine Quad IM Multi-dose 6+ MO 2019-04-03 00:00:00 Completed [facility] Pneumococcal Polysaccharide, PPSV23 (PNEUMOVAX) 2019-04-03 00:00:00 Completed [facility] Influenza Virus Vaccine Quad IM Multi-dose 6+ MO 2019-04-03 00:00:00 Completed [facility] Pneumococcal Polysaccharide, PPSV23 (PNEUMOVAX) 2019-04-03 00:00:00 Completed [facility] Influenza Virus Vaccine Quad IM Multi-dose 6+ MO 2019-04-03 00:00:00 Completed [facility] Pneumococcal Polysaccharide, PPSV23 (PNEUMOVAX) 2019-04-03 00:00:00 Completed [facility] Influenza Virus Vaccine Quad IM Multi-dose 6+ MO 2019-04-03 00:00:00 Completed [facility] Pneumococcal Polysaccharide, PPSV23 (PNEUMOVAX) 2019-04-03 00:00:00 Completed [facility] Influenza Virus Vaccine Quad IM Multi-dose 6+ MO 2019-04-03 00:00:00 Completed [facility] Pneumococcal Polysaccharide, PPSV23 (PNEUMOVAX) 2019-04-03 00:00:00 Completed [facility] Influenza Virus Vaccine Quad IM Multi-dose 6+ MO 2019-04-03 00:00:00 Completed [facility] Pneumococcal Polysaccharide, PPSV23 (PNEUMOVAX) 2019-04-03 00:00:00 Completed [facility] Influenza Virus Vaccine Quad IM Multi-dose 6+ MO 2019-04-03 00:00:00 Completed [facility] Pneumococcal Polysaccharide, PPSV23 (PNEUMOVAX) 2019-04-03 00:00:00 Completed [facility] Influenza Virus Vaccine Quad IM Multi-dose 6+ MO 2019-04-03 00:00:00 Completed [facility] Pneumococcal Polysaccharide, PPSV23 (PNEUMOVAX) 2019-04-03 00:00:00 Completed [facility] Influenza Virus Vaccine Quad IM Multi-dose 6+ MO 2019-04-03 00:00:00 Completed [facility] Pneumococcal Polysaccharide, PPSV23 (PNEUMOVAX) 2019-04-03 00:00:00 Completed [facility] Influenza Virus Vaccine Quad IM Multi-dose 6+ MO 2019-04-03 00:00:00 Completed [facility] Pneumococcal Polysaccharide, PPSV23 (PNEUMOVAX) 2019-04-03 00:00:00 Completed [facility] Influenza Virus Vaccine Quad IM Multi-dose 6+ MO 2019-04-03 00:00:00 Completed [facility] Pneumococcal Polysaccharide, PPSV23 (PNEUMOVAX) 2019-04-03 00:00:00 Completed [facility] Influenza Virus Vaccine Quad IM Multi-dose 6+ MO 2019-04-03 00:00:00 Completed [facility] Pneumococcal Polysaccharide, PPSV23 (PNEUMOVAX) 2019-04-03 00:00:00 Completed [facility] Influenza Virus Vaccine Quad IM Multi-dose 6+ MO 2019-04-03 00:00:00 Completed [facility] Pneumococcal Polysaccharide, PPSV23 (PNEUMOVAX) 2019-04-03 00:00:00 Completed [facility] Influenza Virus Vaccine Quad IM Multi-dose 6+ MO 2019-04-03 00:00:00 Completed [facility] Pneumococcal Polysaccharide, PPSV23 (PNEUMOVAX) 2019-04-03 00:00:00 Completed [facility] Influenza Virus Vaccine Quad IM Multi-dose 6+ MO 2019-04-03 00:00:00 Completed [facility] Pneumococcal Polysaccharide, PPSV23 (PNEUMOVAX) 2019-04-03 00:00:00 Completed [facility] Influenza Virus Vaccine Quad IM Multi-dose 6+ MO 2019-04-03 00:00:00 Completed [facility] Pneumococcal Polysaccharide, PPSV23 (PNEUMOVAX) 2019-04-03 00:00:00 Completed [facility] Influenza Virus Vaccine Quad IM Multi-dose 6+ MO 2019-04-03 00:00:00 Completed [facility] Pneumococcal Polysaccharide, PPSV23 (PNEUMOVAX) 2019-04-03 00:00:00 Completed [facility] Influenza Virus Vaccine Quad IM Multi-dose 6+ MO 2019-04-03 00:00:00 Completed [facility] Pneumococcal Polysaccharide, PPSV23 (PNEUMOVAX) 2019-04-03 00:00:00 Completed [facility] Influenza Virus Vaccine Quad IM Multi-dose 6+ MO 2019-04-03 00:00:00 Completed [facility] Pneumococcal Polysaccharide, PPSV23 (PNEUMOVAX) 2019-04-03 00:00:00 Completed [facility] Influenza Virus Vaccine Quad IM Multi-dose 6+ MO 2019-04-03 00:00:00 Completed [facility] Pneumococcal Polysaccharide, PPSV23 (PNEUMOVAX) 2019-04-03 00:00:00 Completed [facility] Influenza Virus Vaccine Quad IM Multi-dose 6+ MO 2019-04-03 00:00:00 Completed [facility] Pneumococcal Polysaccharide, PPSV23 (PNEUMOVAX) 2019-04-03 00:00:00 Completed [facility] Influenza Virus Vaccine Quad IM Multi-dose 6+ MO 2019-04-03 00:00:00 Completed [facility] Pneumococcal Polysaccharide, PPSV23 (PNEUMOVAX) 2019-04-03 00:00:00 Completed [facility] Influenza Virus Vaccine Quad IM Multi-dose 6+ MO 2019-04-03 00:00:00 Completed [facility] Pneumococcal Polysaccharide, PPSV23 (PNEUMOVAX) 2019-04-03 00:00:00 Completed [facility] Influenza Virus Vaccine Quad IM Multi-dose 6+ MO 2019-04-03 00:00:00 Completed [facility] Pneumococcal Polysaccharide, PPSV23 (PNEUMOVAX) 2019-04-03 00:00:00 Completed [facility] Influenza Virus Vaccine Quad IM Multi-dose 6+ MO 2019-04-03 00:00:00 Completed [facility] Pneumococcal Polysaccharide, PPSV23 (PNEUMOVAX) 2019-04-03 00:00:00 Completed [facility] Influenza Virus Vaccine Quad IM Multi-dose 6+ MO 2019-04-03 00:00:00 Completed [facility] Pneumococcal Polysaccharide, PPSV23 (PNEUMOVAX) 2019-04-03 00:00:00 Completed [facility] Influenza Virus Vaccine Quad IM Multi-dose 6+ MO 2019-04-03 00:00:00 Completed [facility] Pneumococcal Polysaccharide, PPSV23 (PNEUMOVAX) 2019-04-03 00:00:00 Completed [facility] Influenza Virus Vaccine Quad IM Multi-dose 6+ MO 2019-04-03 00:00:00 Completed [facility] Pneumococcal Polysaccharide, PPSV23 (PNEUMOVAX) 2019-04-03 00:00:00 Completed [facility] Influenza Virus Vaccine Quad IM Multi-dose 6+ MO 2019-04-03 00:00:00 Completed [facility] Pneumococcal Polysaccharide, PPSV23 (PNEUMOVAX) 2019-04-03 00:00:00 Completed [facility] Influenza Virus Vaccine Quad IM Multi-dose 6+ MO 2019-04-03 00:00:00 Completed [facility] Pneumococcal Polysaccharide, PPSV23 (PNEUMOVAX) 2019-04-03 00:00:00 Completed [facility] Influenza Virus Vaccine Quad IM Multi-dose 6+ MO 2019-04-03 00:00:00 Completed [facility] Pneumococcal Polysaccharide, PPSV23 (PNEUMOVAX) 2019-04-03 00:00:00 Completed [facility] Influenza Virus Vaccine Quad IM Multi-dose 6+ MO 2019-04-03 00:00:00 Completed [facility] Pneumococcal Polysaccharide, PPSV23 (PNEUMOVAX) 2019-04-03 00:00:00 Completed [facility] Influenza Virus Vaccine Quad IM Multi-dose 6+ MO 2019-04-03 00:00:00 Completed [facility] Pneumococcal Polysaccharide, PPSV23 (PNEUMOVAX) 2019-04-03 00:00:00 Completed [facility] Influenza Virus Vaccine Quad IM Multi-dose 6+ MO 2019-04-03 00:00:00 Completed [facility] Pneumococcal Polysaccharide, PPSV23 (PNEUMOVAX) 2019-04-03 00:00:00 Completed [facility] Influenza Virus Vaccine Quad IM Multi-dose 6+ MO 2019-04-03 00:00:00 Completed [facility] Pneumococcal Polysaccharide, PPSV23 (PNEUMOVAX) 2019-04-03 00:00:00 Completed [facility] Influenza Virus Vaccine Quad IM Multi-dose 6+ MO 2019-04-03 00:00:00 Completed [facility] Pneumococcal Polysaccharide, PPSV23 (PNEUMOVAX) 2019-04-03 00:00:00 Completed [facility] Influenza Virus Vaccine Quad IM Multi-dose 6+ MO 2019-04-03 00:00:00 Completed [facility] Pneumococcal Polysaccharide, PPSV23 (PNEUMOVAX) 2019-04-03 00:00:00 Completed [facility] Influenza Virus Vaccine Quad IM Multi-dose 6+ MO 2019-04-03 00:00:00 Completed [facility] Pneumococcal Polysaccharide, PPSV23 (PNEUMOVAX) 2019-04-03 00:00:00 Completed [facility] Influenza Virus Vaccine Quad IM Multi-dose 6+ MO 2019-04-03 00:00:00 Completed [facility] Pneumococcal Polysaccharide, PPSV23 (PNEUMOVAX) 2019-04-03 00:00:00 Completed [facility] Influenza Virus Vaccine Quad IM Multi-dose 6+ MO 2019-04-03 00:00:00 Completed [facility] Pneumococcal Polysaccharide, PPSV23 (PNEUMOVAX) 2019-04-03 00:00:00 Completed [facility] Influenza Virus Vaccine Quad IM Multi-dose 6+ MO 2019-04-03 00:00:00 Completed [facility] Pneumococcal Polysaccharide, PPSV23 (PNEUMOVAX) 2019-04-03 00:00:00 Completed [facility] Influenza Virus Vaccine Quad IM Multi-dose 6+ MO 2019-04-03 00:00:00 Completed [facility] Pneumococcal Polysaccharide, PPSV23 (PNEUMOVAX) 2019-04-03 00:00:00 Completed [facility] Influenza High Dose 2018-04-24 00:00:00 Completed [facility] Influenza High Dose 2018-04-24 00:00:00 Completed [facility] Influenza High Dose 2018-04-24 00:00:00 Completed [facility] Influenza High Dose 2018-04-24 00:00:00 Completed [facility] Influenza High Dose 2018-04-24 00:00:00 Completed [facility] Influenza High Dose 2018-04-24 00:00:00 Completed [facility] Influenza High Dose 2018-04-24 00:00:00 Completed [facility] Influenza High Dose 2018-04-24 00:00:00 Completed [facility] Influenza High Dose 2018-04-24 00:00:00 Completed [facility] Influenza High Dose 2018-04-24 00:00:00 Completed [facility] Influenza High Dose 2018-04-24 00:00:00 Completed [facility] Influenza High Dose 2018-04-24 00:00:00 Completed [facility] Influenza High Dose 2018-04-24 00:00:00 Completed [facility] Influenza High Dose 2018-04-24 00:00:00 Completed [facility] Influenza High Dose 2018-04-24 00:00:00 Completed [facility] Influenza High Dose 2018-04-24 00:00:00 Completed [facility] Influenza High Dose 2018-04-24 00:00:00 Completed [facility] Influenza High Dose 2018-04-24 00:00:00 Completed [facility] Influenza High Dose 2018-04-24 00:00:00 Completed [facility] Influenza High Dose 2018-04-24 00:00:00 Completed [facility] Influenza High Dose 2018-04-24 00:00:00 Completed [facility] Influenza High Dose 2018-04-24 00:00:00 Completed [facility] Influenza High Dose 2018-04-24 00:00:00 Completed [facility] Influenza High Dose 2018-04-24 00:00:00 Completed [facility] Influenza High Dose 2018-04-24 00:00:00 Completed [facility] Influenza High Dose 2018-04-24 00:00:00 Completed [facility] Influenza High Dose 2018-04-24 00:00:00 Completed [facility] Influenza High Dose 2018-04-24 00:00:00 Completed [facility] Influenza High Dose 2018-04-24 00:00:00 Completed [facility] Influenza High Dose 2018-04-24 00:00:00 Completed [facility] Influenza High Dose 2018-04-24 00:00:00 Completed [facility] Influenza High Dose 2018-04-24 00:00:00 Completed [facility] Influenza High Dose 2018-04-24 00:00:00 Completed [facility] Influenza High Dose 2018-04-24 00:00:00 Completed [facility] Influenza High Dose 2018-04-24 00:00:00 Completed [facility] Influenza High Dose 2018-04-24 00:00:00 Completed [facility] Influenza High Dose 2018-04-24 00:00:00 Completed [facility] Influenza High Dose 2018-04-24 00:00:00 Completed [facility] Influenza High Dose 2018-04-24 00:00:00 Completed [facility] Influenza High Dose 2018-04-24 00:00:00 Completed [facility] Influenza High Dose 2018-04-24 00:00:00 Completed [facility] Influenza High Dose 2018-04-24 00:00:00 Completed [facility] Influenza High Dose 2018-04-24 00:00:00 Completed [facility] Influenza High Dose 2018-04-24 00:00:00 Completed [facility] Influenza High Dose 2018-04-24 00:00:00 Completed [facility] Influenza High Dose 2018-04-24 00:00:00 Completed [facility] Influenza High Dose 2018-04-24 00:00:00 Completed [facility] Influenza High Dose 2018-04-24 00:00:00 Completed [facility] Influenza High Dose 2018-04-24 00:00:00 Completed [facility] Influenza High Dose 2018-04-24 00:00:00 Completed [facility] Influenza High Dose 2018-04-24 00:00:00 Completed [facility] Influenza High Dose 2018-04-24 00:00:00 Completed [facility] Influenza High Dose 2018-04-24 00:00:00 Completed [facility] Influenza High Dose 2018-04-24 00:00:00 Completed [facility] Influenza High Dose 2018-04-24 00:00:00 Completed [facility] Influenza High Dose 2018-04-24 00:00:00 Completed [facility] Influenza High Dose 2018-04-24 00:00:00 Completed [facility] Influenza High Dose 2018-04-24 00:00:00 Completed [facility] Influenza High Dose 2018-04-24 00:00:00 Completed [facility] Influenza High Dose 2018-04-24 00:00:00 Completed [facility] Influenza High Dose 2018-04-24 00:00:00 Completed [facility] Influenza High Dose 2018-04-24 00:00:00 Completed [facility] Influenza High Dose 2018-04-24 00:00:00 Completed [facility] Influenza High Dose 2018-04-24 00:00:00 Completed [facility] Influenza High Dose 2018-04-24 00:00:00 Completed [facility] Influenza High Dose 2018-04-24 00:00:00 Completed [facility] Influenza High Dose 2018-04-24 00:00:00 Completed [facility] Influenza High Dose 2018-04-24 00:00:00 Completed [facility] Influenza High Dose 2018-04-24 00:00:00 Completed [facility] Influenza High Dose 2018-04-24 00:00:00 Completed [facility] Influenza High Dose 2018-04-24 00:00:00 Completed [facility] Influenza High Dose 2018-04-24 00:00:00 Completed [facility] Influenza High Dose 2018-04-24 00:00:00 Completed [facility] Influenza High Dose 2018-04-24 00:00:00 Completed [facility] Influenza High Dose 2018-04-24 00:00:00 Completed [facility] Influenza High Dose 2018-04-24 00:00:00 Completed [facility] Influenza High Dose 2018-04-24 00:00:00 Completed [facility] Influenza High Dose 2018-04-24 00:00:00 Completed [facility] Influenza High Dose 2018-04-24 00:00:00 Completed [facility] Influenza High Dose 2018-04-24 00:00:00 Completed [facility] Influenza High Dose 2018-04-24 00:00:00 Completed [facility] Influenza High Dose 2018-04-24 00:00:00 Completed [facility] Influenza High Dose 2018-04-24 00:00:00 Completed [facility] Influenza High Dose 2018-04-24 00:00:00 Completed [facility] Influenza High Dose 2018-04-24 00:00:00 Completed [facility] Influenza High Dose 2018-04-24 00:00:00 Completed [facility] Influenza High Dose 2018-04-24 00:00:00 Completed [facility] Influenza High Dose 2018-04-24 00:00:00 Completed [facility] Influenza High Dose 2018-04-24 00:00:00 Completed [facility] Influenza High Dose 2018-04-24 00:00:00 Completed [facility] Influenza High Dose 2018-04-24 00:00:00 Completed [facility] Influenza High Dose 2018-04-24 00:00:00 Completed [facility] Influenza High Dose 2018-04-24 00:00:00 Completed [facility] Influenza High Dose 2018-04-24 00:00:00 Completed [facility] Influenza High Dose 2018-04-24 00:00:00 Completed [facility] Influenza High Dose 2018-04-24 00:00:00 Completed [facility] Influenza High Dose 2018-04-24 00:00:00 Completed [facility] Influenza High Dose 2018-04-24 00:00:00 Completed [facility] Influenza High Dose 2018-04-24 00:00:00 Completed [facility] Influenza High Dose 2018-04-24 00:00:00 Completed [facility] Influenza High Dose 2018-04-24 00:00:00 Completed [facility] Influenza High Dose 2018-04-24 00:00:00 Completed [facility] Influenza High Dose 2018-04-24 00:00:00 Completed [facility] Influenza High Dose 2018-04-24 00:00:00 Completed [facility] Influenza High Dose 2018-04-24 00:00:00 Completed [facility] Influenza High Dose 2018-04-24 00:00:00 Completed [facility] Influenza High Dose 2018-04-24 00:00:00 Completed [facility] Influenza High Dose 2018-04-24 00:00:00 Completed [facility] Influenza High Dose 2018-04-24 00:00:00 Completed [facility] Influenza High Dose 2018-04-24 00:00:00 Completed [facility] Influenza High Dose 2018-04-24 00:00:00 Completed [facility] Influenza High Dose 2018-04-24 00:00:00 Completed [facility] Influenza High Dose 2018-04-24 00:00:00 Completed [facility] Influenza High Dose 2018-04-24 00:00:00 Completed [facility] Influenza High Dose 2018-04-24 00:00:00 Completed [facility] Influenza High Dose 2018-04-24 00:00:00 Completed [facility] Influenza High Dose 2018-04-24 00:00:00 Completed [facility] Influenza High Dose 2018-04-24 00:00:00 Completed [facility] Influenza High Dose 2018-04-24 00:00:00 Completed [facility] Influenza High Dose 2018-04-24 00:00:00 Completed [facility] Influenza High Dose 2018-04-24 00:00:00 Completed [facility] Influenza High Dose 2018-04-24 00:00:00 Completed [facility] Influenza High Dose 2018-04-24 00:00:00 Completed [facility] Influenza High Dose 2018-04-24 00:00:00 Completed [facility] Influenza High Dose 2018-04-24 00:00:00 Completed [facility] Influenza High Dose 2018-04-24 00:00:00 Completed [facility] Influenza High Dose 2018-04-24 00:00:00 Completed [facility] Influenza High Dose 2018-04-24 00:00:00 Completed [facility] Influenza High Dose 2018-04-24 00:00:00 Completed [facility] Influenza High Dose 2018-04-24 00:00:00 Completed [facility] Influenza High Dose 2018-04-24 00:00:00 Completed [facility] Influenza High Dose 2018-04-24 00:00:00 Completed [facility] Influenza High Dose 2018-04-24 00:00:00 Completed [facility] Influenza High Dose 2018-04-24 00:00:00 Completed [facility] Influenza High Dose 2018-04-24 00:00:00 Completed [facility] Influenza High Dose 2018-04-24 00:00:00 Completed [facility] Influenza High Dose 2018-04-24 00:00:00 Completed [facility] Influenza High Dose 2018-04-24 00:00:00 Completed [facility] Influenza High Dose 2018-04-24 00:00:00 Completed [facility] Influenza High Dose 2018-04-24 00:00:00 Completed [facility] Influenza High Dose 2018-04-24 00:00:00 Completed [facility] Influenza High Dose 2018-04-24 00:00:00 Completed [facility] Influenza High Dose 2018-04-24 00:00:00 Completed [facility] Influenza High Dose 2018-04-24 00:00:00 Completed [facility] Influenza High Dose 2018-04-24 00:00:00 Completed [facility] Influenza High Dose 2018-04-24 00:00:00 Completed [facility] Influenza High Dose 2018-04-24 00:00:00 Completed [facility] Influenza High Dose 2018-04-24 00:00:00 Completed [facility] Influenza High Dose 2018-04-24 00:00:00 Completed [facility] Influenza High Dose 2018-04-24 00:00:00 Completed [facility] Influenza High Dose 2018-04-24 00:00:00 Completed [facility] Influenza High Dose 2018-04-24 00:00:00 Completed [facility] Influenza High Dose 2018-04-24 00:00:00 Completed [facility] Influenza High Dose 2018-04-24 00:00:00 Completed [facility] Influenza High Dose 2018-04-24 00:00:00 Completed [facility] Influenza High Dose 2018-04-24 00:00:00 Completed [facility] Influenza High Dose 2018-04-24 00:00:00 Completed [facility] Influenza High Dose 2018-04-24 00:00:00 Completed [facility] Influenza High Dose 2018-04-24 00:00:00 Completed [facility] Influenza High Dose 2018-04-24 00:00:00 Completed [facility] Influenza High Dose 2018-04-24 00:00:00 Completed [facility] Influenza High Dose 2018-04-24 00:00:00 Completed [facility] Influenza High Dose 2018-04-24 00:00:00 Completed [facility] Influenza High Dose 2018-04-24 00:00:00 Completed [facility] Pneumococcal Polysaccharide, PPSV23 (PNEUMOVAX) 2017-10-03 00:00:00 Completed [facility] Pneumococcal Polysaccharide, PPSV23 (PNEUMOVAX) 2017-10-03 00:00:00 Completed [facility] Pneumococcal Polysaccharide, PPSV23 (PNEUMOVAX) 2017-10-03 00:00:00 Completed [facility] Pneumococcal Polysaccharide, PPSV23 (PNEUMOVAX) 2017-10-03 00:00:00 Completed [facility] Pneumococcal Polysaccharide, PPSV23 (PNEUMOVAX) 2017-10-03 00:00:00 Completed [facility] Pneumococcal Polysaccharide, PPSV23 (PNEUMOVAX) 2017-10-03 00:00:00 Completed [facility] Pneumococcal Polysaccharide, PPSV23 (PNEUMOVAX) 2017-10-03 00:00:00 Completed [facility] Pneumococcal Polysaccharide, PPSV23 (PNEUMOVAX) 2017-10-03 00:00:00 Completed [facility] Pneumococcal Polysaccharide, PPSV23 (PNEUMOVAX) 2017-10-03 00:00:00 Completed [facility] Pneumococcal Polysaccharide, PPSV23 (PNEUMOVAX) 2017-10-03 00:00:00 Completed [facility] Pneumococcal Polysaccharide, PPSV23 (PNEUMOVAX) 2017-10-03 00:00:00 Completed [facility] Pneumococcal Polysaccharide, PPSV23 (PNEUMOVAX) 2017-10-03 00:00:00 Completed [facility] Pneumococcal Polysaccharide, PPSV23 (PNEUMOVAX) 2017-10-03 00:00:00 Completed [facility] Pneumococcal Polysaccharide, PPSV23 (PNEUMOVAX) 2017-10-03 00:00:00 Completed [facility] Pneumococcal Polysaccharide, PPSV23 (PNEUMOVAX) 2017-10-03 00:00:00 Completed [facility] Pneumococcal Polysaccharide, PPSV23 (PNEUMOVAX) 2017-10-03 00:00:00 Completed [facility] Pneumococcal Polysaccharide, PPSV23 (PNEUMOVAX) 2017-10-03 00:00:00 Completed [facility] Pneumococcal Polysaccharide, PPSV23 (PNEUMOVAX) 2017-10-03 00:00:00 Completed [facility] Pneumococcal Polysaccharide, PPSV23 (PNEUMOVAX) 2017-10-03 00:00:00 Completed [facility] Pneumococcal Polysaccharide, PPSV23 (PNEUMOVAX) 2017-10-03 00:00:00 Completed [facility] Pneumococcal Polysaccharide, PPSV23 (PNEUMOVAX) 2017-10-03 00:00:00 Completed [facility] Pneumococcal Polysaccharide, PPSV23 (PNEUMOVAX) 2017-10-03 00:00:00 Completed [facility] Pneumococcal Polysaccharide, PPSV23 (PNEUMOVAX) 2017-10-03 00:00:00 Completed [facility] Pneumococcal Polysaccharide, PPSV23 (PNEUMOVAX) 2017-10-03 00:00:00 Completed [facility] Pneumococcal Polysaccharide, PPSV23 (PNEUMOVAX) 2017-10-03 00:00:00 Completed [facility] Pneumococcal Polysaccharide, PPSV23 (PNEUMOVAX) 2017-10-03 00:00:00 Completed [facility] Pneumococcal Polysaccharide, PPSV23 (PNEUMOVAX) 2017-10-03 00:00:00 Completed [facility] Pneumococcal Polysaccharide, PPSV23 (PNEUMOVAX) 2017-10-03 00:00:00 Completed [facility] Pneumococcal Polysaccharide, PPSV23 (PNEUMOVAX) 2017-10-03 00:00:00 Completed [facility] Pneumococcal Polysaccharide, PPSV23 (PNEUMOVAX) 2017-10-03 00:00:00 Completed [facility] Pneumococcal Polysaccharide, PPSV23 (PNEUMOVAX) 2017-10-03 00:00:00 Completed [facility] Pneumococcal Polysaccharide, PPSV23 (PNEUMOVAX) 2017-10-03 00:00:00 Completed [facility] Pneumococcal Polysaccharide, PPSV23 (PNEUMOVAX) 2017-10-03 00:00:00 Completed [facility] Pneumococcal Polysaccharide, PPSV23 (PNEUMOVAX) 2017-10-03 00:00:00 Completed [facility] Pneumococcal Polysaccharide, PPSV23 (PNEUMOVAX) 2017-10-03 00:00:00 Completed [facility] Pneumococcal Polysaccharide, PPSV23 (PNEUMOVAX) 2017-10-03 00:00:00 Completed [facility] Pneumococcal Polysaccharide, PPSV23 (PNEUMOVAX) 2017-10-03 00:00:00 Completed [facility] Pneumococcal Polysaccharide, PPSV23 (PNEUMOVAX) 2017-10-03 00:00:00 Completed [facility] Pneumococcal Polysaccharide, PPSV23 (PNEUMOVAX) 2017-10-03 00:00:00 Completed [facility] Pneumococcal Polysaccharide, PPSV23 (PNEUMOVAX) 2017-10-03 00:00:00 Completed [facility] Pneumococcal Polysaccharide, PPSV23 (PNEUMOVAX) 2017-10-03 00:00:00 Completed [facility] Pneumococcal Polysaccharide, PPSV23 (PNEUMOVAX) 2017-10-03 00:00:00 Completed [facility] Pneumococcal Polysaccharide, PPSV23 (PNEUMOVAX) 2017-10-03 00:00:00 Completed [facility] Pneumococcal Polysaccharide, PPSV23 (PNEUMOVAX) 2017-10-03 00:00:00 Completed [facility] Pneumococcal Polysaccharide, PPSV23 (PNEUMOVAX) 2017-10-03 00:00:00 Completed [facility] Pneumococcal Polysaccharide, PPSV23 (PNEUMOVAX) 2017-10-03 00:00:00 Completed [facility] Pneumococcal Polysaccharide, PPSV23 (PNEUMOVAX) 2017-10-03 00:00:00 Completed [facility] Pneumococcal Polysaccharide, PPSV23 (PNEUMOVAX) 2017-10-03 00:00:00 Completed [facility] Pneumococcal Polysaccharide, PPSV23 (PNEUMOVAX) 2017-10-03 00:00:00 Completed [facility] Pneumococcal Polysaccharide, PPSV23 (PNEUMOVAX) 2017-10-03 00:00:00 Completed [facility] Pneumococcal Polysaccharide, PPSV23 (PNEUMOVAX) 2017-10-03 00:00:00 Completed [facility] Pneumococcal Polysaccharide, PPSV23 (PNEUMOVAX) 2017-10-03 00:00:00 Completed [facility] Pneumococcal Polysaccharide, PPSV23 (PNEUMOVAX) 2017-10-03 00:00:00 Completed [facility] Pneumococcal Polysaccharide, PPSV23 (PNEUMOVAX) 2017-10-03 00:00:00 Completed [facility] Pneumococcal Polysaccharide, PPSV23 (PNEUMOVAX) 2017-10-03 00:00:00 Completed [facility] Pneumococcal Polysaccharide, PPSV23 (PNEUMOVAX) 2017-10-03 00:00:00 Completed [facility] Pneumococcal Polysaccharide, PPSV23 (PNEUMOVAX) 2017-10-03 00:00:00 Completed [facility] Pneumococcal Polysaccharide, PPSV23 (PNEUMOVAX) 2017-10-03 00:00:00 Completed [facility] Pneumococcal Polysaccharide, PPSV23 (PNEUMOVAX) 2017-10-03 00:00:00 Completed [facility] Pneumococcal Polysaccharide, PPSV23 (PNEUMOVAX) 2017-10-03 00:00:00 Completed [facility] Pneumococcal Polysaccharide, PPSV23 (PNEUMOVAX) 2017-10-03 00:00:00 Completed [facility] Pneumococcal Polysaccharide, PPSV23 (PNEUMOVAX) 2017-10-03 00:00:00 Completed [facility] Pneumococcal Polysaccharide, PPSV23 (PNEUMOVAX) 2017-10-03 00:00:00 Completed [facility] Pneumococcal Polysaccharide, PPSV23 (PNEUMOVAX) 2017-10-03 00:00:00 Completed [facility] Pneumococcal Polysaccharide, PPSV23 (PNEUMOVAX) 2017-10-03 00:00:00 Completed [facility] Pneumococcal Polysaccharide, PPSV23 (PNEUMOVAX) 2017-10-03 00:00:00 Completed [facility] Pneumococcal Polysaccharide, PPSV23 (PNEUMOVAX) 2017-10-03 00:00:00 Completed [facility] Pneumococcal Polysaccharide, PPSV23 (PNEUMOVAX) 2017-10-03 00:00:00 Completed [facility] Pneumococcal Polysaccharide, PPSV23 (PNEUMOVAX) 2017-10-03 00:00:00 Completed [facility] Pneumococcal Polysaccharide, PPSV23 (PNEUMOVAX) 2017-10-03 00:00:00 Completed [facility] Pneumococcal Polysaccharide, PPSV23 (PNEUMOVAX) 2017-10-03 00:00:00 Completed [facility] Pneumococcal Polysaccharide, PPSV23 (PNEUMOVAX) 2017-10-03 00:00:00 Completed [facility] Pneumococcal Polysaccharide, PPSV23 (PNEUMOVAX) 2017-10-03 00:00:00 Completed [facility] [facility] Pneumococcal Polysaccharide, PPSV23 (PNEUMOVAX) 2017-10-03 00:00:00 Completed [facility] Pneumococcal Polysaccharide, PPSV23 (PNEUMOVAX) 2017-10-03 00:00:00 Completed [facility] Pneumococcal Polysaccharide, PPSV23 (PNEUMOVAX) 2017-10-03 00:00:00 Completed [facility] Pneumococcal Polysaccharide, PPSV23 (PNEUMOVAX) 2017-10-03 00:00:00 Completed [facility] Pneumococcal Polysaccharide, PPSV23 (PNEUMOVAX) 2017-10-03 00:00:00 Completed [facility] Pneumococcal Polysaccharide, PPSV23 (PNEUMOVAX) 2017-10-03 00:00:00 Completed [facility] Pneumococcal Polysaccharide, PPSV23 (PNEUMOVAX) 2017-10-03 00:00:00 Completed [facility] Pneumococcal Polysaccharide, PPSV23 (PNEUMOVAX) 2017-10-03 00:00:00 Completed [facility] Pneumococcal Polysaccharide, PPSV23 (PNEUMOVAX) 2017-10-03 00:00:00 Completed [facility] Pneumococcal Polysaccharide, PPSV23 (PNEUMOVAX) 2017-10-03 00:00:00 Completed [facility] Pneumococcal Polysaccharide, PPSV23 (PNEUMOVAX) 2017-10-03 00:00:00 Completed [facility] Pneumococcal Polysaccharide, PPSV23 (PNEUMOVAX) 2017-10-03 00:00:00 Completed [facility] Pneumococcal Polysaccharide, PPSV23 (PNEUMOVAX) 2017-10-03 00:00:00 Completed [facility] Pneumococcal Polysaccharide, PPSV23 (PNEUMOVAX) 2017-10-03 00:00:00 Completed [facility] Pneumococcal Polysaccharide, PPSV23 (PNEUMOVAX) 2017-10-03 00:00:00 Completed [facility] Pneumococcal Polysaccharide, PPSV23 (PNEUMOVAX) 2017-10-03 00:00:00 Completed [facility] Pneumococcal Polysaccharide, PPSV23 (PNEUMOVAX) 2017-10-03 00:00:00 Completed [facility] Pneumococcal Polysaccharide, PPSV23 (PNEUMOVAX) 2017-10-03 00:00:00 Completed [facility] Pneumococcal Polysaccharide, PPSV23 (PNEUMOVAX) 2017-10-03 00:00:00 Completed [facility] Pneumococcal Polysaccharide, PPSV23 (PNEUMOVAX) 2017-10-03 00:00:00 Completed [facility] Pneumococcal Polysaccharide, PPSV23 (PNEUMOVAX) 2017-10-03 00:00:00 Completed [facility] Pneumococcal Polysaccharide, PPSV23 (PNEUMOVAX) 2017-10-03 00:00:00 Completed [facility] Pneumococcal Polysaccharide, PPSV23 (PNEUMOVAX) 2017-10-03 00:00:00 Completed [facility] Pneumococcal Polysaccharide, PPSV23 (PNEUMOVAX) 2017-10-03 00:00:00 Completed [facility] Pneumococcal Polysaccharide, PPSV23 (PNEUMOVAX) 2017-10-03 00:00:00 Completed [facility] Pneumococcal Polysaccharide, PPSV23 (PNEUMOVAX) 2017-10-03 00:00:00 Completed [facility] Pneumococcal Polysaccharide, PPSV23 (PNEUMOVAX) 2017-10-03 00:00:00 Completed [facility] Pneumococcal Polysaccharide, PPSV23 (PNEUMOVAX) 2017-10-03 00:00:00 Completed [facility] Pneumococcal Polysaccharide, PPSV23 (PNEUMOVAX) 2017-10-03 00:00:00 Completed [facility] Pneumococcal Polysaccharide, PPSV23 (PNEUMOVAX) 2017-10-03 00:00:00 Completed [facility] Pneumococcal Polysaccharide, PPSV23 (PNEUMOVAX) 2017-10-03 00:00:00 Completed [facility] Pneumococcal Polysaccharide, PPSV23 (PNEUMOVAX) 2017-10-03 00:00:00 Completed [facility] Pneumococcal Polysaccharide, PPSV23 (PNEUMOVAX) 2017-10-03 00:00:00 Completed [facility] Pneumococcal Polysaccharide, PPSV23 (PNEUMOVAX) 2017-10-03 00:00:00 Completed [facility] Pneumococcal Polysaccharide, PPSV23 (PNEUMOVAX) 2017-10-03 00:00:00 Completed [facility] Pneumococcal Polysaccharide, PPSV23 (PNEUMOVAX) 2017-10-03 00:00:00 Completed [facility] Pneumococcal Polysaccharide, PPSV23 (PNEUMOVAX) 2017-10-03 00:00:00 Completed [facility] Pneumococcal Polysaccharide, PPSV23 (PNEUMOVAX) 2017-10-03 00:00:00 Completed [facility] Pneumococcal Polysaccharide, PPSV23 (PNEUMOVAX) 2017-10-03 00:00:00 Completed [facility] Pneumococcal Polysaccharide, PPSV23 (PNEUMOVAX) 2017-10-03 00:00:00 Completed [facility] Pneumococcal Polysaccharide, PPSV23 (PNEUMOVAX) 2017-10-03 00:00:00 Completed [facility] Pneumococcal Polysaccharide, PPSV23 (PNEUMOVAX) 2017-10-03 00:00:00 Completed [facility] Pneumococcal Polysaccharide, PPSV23 (PNEUMOVAX) 2017-10-03 00:00:00 Completed [facility] Pneumococcal Polysaccharide, PPSV23 (PNEUMOVAX) 2017-10-03 00:00:00 Completed [facility] Pneumococcal Polysaccharide, PPSV23 (PNEUMOVAX) 2017-10-03 00:00:00 Completed [facility] Pneumococcal Polysaccharide, PPSV23 (PNEUMOVAX) 2017-10-03 00:00:00 Completed [facility] Pneumococcal Polysaccharide, PPSV23 (PNEUMOVAX) 2017-10-03 00:00:00 Completed [facility] Pneumococcal Polysaccharide, PPSV23 (PNEUMOVAX) 2017-10-03 00:00:00 Completed [facility] Pneumococcal Polysaccharide, PPSV23 (PNEUMOVAX) 2017-10-03 00:00:00 Completed [facility] Pneumococcal Polysaccharide, PPSV23 (PNEUMOVAX) 2017-10-03 00:00:00 Completed [facility] Pneumococcal Polysaccharide, PPSV23 (PNEUMOVAX) 2017-10-03 00:00:00 Completed [facility] Pneumococcal Polysaccharide, PPSV23 (PNEUMOVAX) 2017-10-03 00:00:00 Completed [facility] Pneumococcal Polysaccharide, PPSV23 (PNEUMOVAX) 2017-10-03 00:00:00 Completed [facility] Pneumococcal Polysaccharide, PPSV23 (PNEUMOVAX) 2017-10-03 00:00:00 Completed [facility] Pneumococcal Polysaccharide, PPSV23 (PNEUMOVAX) 2017-10-03 00:00:00 Completed [facility] Pneumococcal Polysaccharide, PPSV23 (PNEUMOVAX) 2017-10-03 00:00:00 Completed [facility] Pneumococcal Polysaccharide, PPSV23 (PNEUMOVAX) 2017-10-03 00:00:00 Completed [facility] Pneumococcal Polysaccharide, PPSV23 (PNEUMOVAX) 2017-10-03 00:00:00 Completed [facility] Pneumococcal Polysaccharide, PPSV23 (PNEUMOVAX) 2017-10-03 00:00:00 Completed [facility] Pneumococcal Polysaccharide, PPSV23 (PNEUMOVAX) 2017-10-03 00:00:00 Completed [facility] Pneumococcal Polysaccharide, PPSV23 (PNEUMOVAX) 2017-10-03 00:00:00 Completed [facility] Pneumococcal Polysaccharide, PPSV23 (PNEUMOVAX) 2017-10-03 00:00:00 Completed [facility] Pneumococcal Polysaccharide, PPSV23 (PNEUMOVAX) 2017-10-03 00:00:00 Completed [facility] Pneumococcal Polysaccharide, PPSV23 (PNEUMOVAX) 2017-10-03 00:00:00 Completed [facility] Pneumococcal Polysaccharide, PPSV23 (PNEUMOVAX) 2017-10-03 00:00:00 Completed [facility] Pneumococcal Polysaccharide, PPSV23 (PNEUMOVAX) 2017-10-03 00:00:00 Completed [facility] Pneumococcal Polysaccharide, PPSV23 (PNEUMOVAX) 2017-10-03 00:00:00 Completed [facility] Pneumococcal Polysaccharide, PPSV23 (PNEUMOVAX) 2017-10-03 00:00:00 Completed [facility] Pneumococcal Polysaccharide, PPSV23 (PNEUMOVAX) 2017-10-03 00:00:00 Completed [facility] Pneumococcal Polysaccharide, PPSV23 (PNEUMOVAX) 2017-10-03 00:00:00 Completed [facility] Pneumococcal Polysaccharide, PPSV23 (PNEUMOVAX) 2017-10-03 00:00:00 Completed [facility] Pneumococcal Polysaccharide, PPSV23 (PNEUMOVAX) 2017-10-03 00:00:00 Completed [facility] Pneumococcal Polysaccharide, PPSV23 (PNEUMOVAX) 2017-10-03 00:00:00 Completed [facility] Pneumococcal Polysaccharide, PPSV23 (PNEUMOVAX) 2017-10-03 00:00:00 Completed [facility] Pneumococcal Polysaccharide, PPSV23 (PNEUMOVAX) 2017-10-03 00:00:00 Completed [facility] Pneumococcal Polysaccharide, PPSV23 (PNEUMOVAX) 2017-10-03 00:00:00 Completed [facility] Pneumococcal Polysaccharide, PPSV23 (PNEUMOVAX) 2017-10-03 00:00:00 Completed [facility] Pneumococcal Polysaccharide, PPSV23 (PNEUMOVAX) 2017-10-03 00:00:00 Completed [facility] Pneumococcal Polysaccharide, PPSV23 (PNEUMOVAX) 2017-10-03 00:00:00 Completed [facility] Pneumococcal Polysaccharide, PPSV23 (PNEUMOVAX) 2017-10-03 00:00:00 Completed [facility] Pneumococcal Polysaccharide, PPSV23 (PNEUMOVAX) 2017-10-03 00:00:00 Completed [facility] Pneumococcal Polysaccharide, PPSV23 (PNEUMOVAX) 2017-10-03 00:00:00 Completed [facility] Pneumococcal Polysaccharide, PPSV23 (PNEUMOVAX) 2017-10-03 00:00:00 Completed [facility] Pneumococcal Polysaccharide, PPSV23 (PNEUMOVAX) 2017-10-03 00:00:00 Completed [facility] Pneumococcal Polysaccharide, PPSV23 (PNEUMOVAX) 2017-10-03 00:00:00 Completed [facility] Pneumococcal Polysaccharide, PPSV23 (PNEUMOVAX) 2017-10-03 00:00:00 Completed [facility] Pneumococcal Polysaccharide, PPSV23 (PNEUMOVAX) 2017-10-03 00:00:00 Completed [facility] Pneumococcal Polysaccharide, PPSV23 (PNEUMOVAX) 2017-10-03 00:00:00 Completed [facility] Pneumococcal Polysaccharide, PPSV23 (PNEUMOVAX) 2017-10-03 00:00:00 Completed [facility] Pneumococcal Polysaccharide, PPSV23 (PNEUMOVAX) 2017-10-03 00:00:00 Completed [facility] Pneumococcal Polysaccharide, PPSV23 (PNEUMOVAX) 2017-10-03 00:00:00 Completed [facility] Influenza High Dose 2017-04-13 00:00:00 Completed [facility] Influenza High Dose 2017-04-13 00:00:00 Completed [facility] Influenza High Dose 2017-04-13 00:00:00 Completed [facility] Influenza High Dose 2017-04-13 00:00:00 Completed [facility] Influenza High Dose 2017-04-13 00:00:00 Completed [facility] Influenza High Dose 2017-04-13 00:00:00 Completed [facility] Influenza High Dose 2017-04-13 00:00:00 Completed [facility] Influenza High Dose 2017-04-13 00:00:00 Completed [facility] Influenza High Dose 2017-04-13 00:00:00 Completed [facility] Influenza High Dose 2017-04-13 00:00:00 Completed [facility] Influenza High Dose 2017-04-13 00:00:00 Completed [facility] Influenza High Dose 2017-04-13 00:00:00 Completed [facility] Influenza High Dose 2017-04-13 00:00:00 Completed [facility] Influenza High Dose 2017-04-13 00:00:00 Completed [facility] Influenza High Dose 2017-04-13 00:00:00 Completed [facility] Influenza High Dose 2017-04-13 00:00:00 Completed [facility] Influenza High Dose 2017-04-13 00:00:00 Completed [facility] Influenza High Dose 2017-04-13 00:00:00 Completed [facility] Influenza High Dose 2017-04-13 00:00:00 Completed [facility] Influenza High Dose 2017-04-13 00:00:00 Completed [facility] Influenza High Dose 2017-04-13 00:00:00 Completed [facility] Influenza High Dose 2017-04-13 00:00:00 Completed [facility] Influenza High Dose 2017-04-13 00:00:00 Completed [facility] Influenza High Dose 2017-04-13 00:00:00 Completed [facility] Influenza High Dose 2017-04-13 00:00:00 Completed [facility] Influenza High Dose 2017-04-13 00:00:00 Completed [facility] Influenza High Dose 2017-04-13 00:00:00 Completed [facility] Influenza High Dose 2017-04-13 00:00:00 Completed [facility] Influenza High Dose 2017-04-13 00:00:00 Completed [facility] Influenza High Dose 2017-04-13 00:00:00 Completed [facility] Influenza High Dose 2017-04-13 00:00:00 Completed [facility] Influenza High Dose 2017-04-13 00:00:00 Completed [facility] Influenza High Dose 2017-04-13 00:00:00 Completed [facility] Influenza High Dose 2017-04-13 00:00:00 Completed [facility] Influenza High Dose 2017-04-13 00:00:00 Completed [facility] Influenza High Dose 2017-04-13 00:00:00 Completed [facility] Influenza High Dose 2017-04-13 00:00:00 Completed [facility] Influenza High Dose 2017-04-13 00:00:00 Completed [facility] Influenza High Dose 2017-04-13 00:00:00 Completed [facility] Influenza High Dose 2017-04-13 00:00:00 Completed [facility] Influenza High Dose 2017-04-13 00:00:00 Completed [facility] Influenza High Dose 2017-04-13 00:00:00 Completed [facility] Influenza High Dose 2017-04-13 00:00:00 Completed [facility] Influenza High Dose 2017-04-13 00:00:00 Completed [facility] Influenza High Dose 2017-04-13 00:00:00 Completed [facility] Influenza High Dose 2017-04-13 00:00:00 Completed [facility] Influenza High Dose 2017-04-13 00:00:00 Completed [facility] Influenza High Dose 2017-04-13 00:00:00 Completed [facility] Influenza High Dose 2017-04-13 00:00:00 Completed [facility] Influenza High Dose 2017-04-13 00:00:00 Completed [facility] Influenza High Dose 2017-04-13 00:00:00 Completed [facility] Influenza High Dose 2017-04-13 00:00:00 Completed [facility] Influenza High Dose 2017-04-13 00:00:00 Completed [facility] Influenza High Dose 2017-04-13 00:00:00 Completed [facility] Influenza High Dose 2017-04-13 00:00:00 Completed [facility] Influenza High Dose 2017-04-13 00:00:00 Completed [facility] Influenza High Dose 2017-04-13 00:00:00 Completed [facility] Influenza High Dose 2017-04-13 00:00:00 Completed [facility] Influenza High Dose 2017-04-13 00:00:00 Completed [facility] Influenza High Dose 2017-04-13 00:00:00 Completed [facility] Influenza High Dose 2017-04-13 00:00:00 Completed [facility] Influenza High Dose 2017-04-13 00:00:00 Completed [facility] Influenza High Dose 2017-04-13 00:00:00 Completed [facility] Influenza High Dose 2017-04-13 00:00:00 Completed [facility] Influenza High Dose 2017-04-13 00:00:00 Completed [facility] Influenza High Dose 2017-04-13 00:00:00 Completed [facility] Influenza High Dose 2017-04-13 00:00:00 Completed [facility] Influenza High Dose 2017-04-13 00:00:00 Completed [facility] Influenza High Dose 2017-04-13 00:00:00 Completed [facility] Influenza High Dose 2017-04-13 00:00:00 Completed [facility] Influenza High Dose 2017-04-13 00:00:00 Completed [facility] Influenza High Dose 2017-04-13 00:00:00 Completed [facility] Influenza High Dose 2017-04-13 00:00:00 Completed [facility] Influenza High Dose 2017-04-13 00:00:00 Completed [facility] Influenza High Dose 2017-04-13 00:00:00 Completed [facility] Influenza High Dose 2017-04-13 00:00:00 Completed [facility] Influenza High Dose 2017-04-13 00:00:00 Completed [facility] Influenza High Dose 2017-04-13 00:00:00 Completed [facility] Influenza High Dose 2017-04-13 00:00:00 Completed [facility] Influenza High Dose 2017-04-13 00:00:00 Completed [facility] Influenza High Dose 2017-04-13 00:00:00 Completed [facility] Influenza High Dose 2017-04-13 00:00:00 Completed [facility] Influenza High Dose 2017-04-13 00:00:00 Completed [facility] Influenza High Dose 2017-04-13 00:00:00 Completed [facility] Influenza High Dose 2017-04-13 00:00:00 Completed [facility] Influenza High Dose 2017-04-13 00:00:00 Completed [facility] Influenza High Dose 2017-04-13 00:00:00 Completed [facility] Influenza High Dose 2017-04-13 00:00:00 Completed [facility] Influenza High Dose 2017-04-13 00:00:00 Completed [facility] Influenza High Dose 2017-04-13 00:00:00 Completed [facility] Influenza High Dose 2017-04-13 00:00:00 Completed [facility] Influenza High Dose 2017-04-13 00:00:00 Completed [facility] Influenza High Dose 2017-04-13 00:00:00 Completed [facility] Influenza High Dose 2017-04-13 00:00:00 Completed [facility] Influenza High Dose 2017-04-13 00:00:00 Completed [facility] Influenza High Dose 2017-04-13 00:00:00 Completed [facility] Influenza High Dose 2017-04-13 00:00:00 Completed [facility] Influenza High Dose 2017-04-13 00:00:00 Completed [facility] Influenza High Dose 2017-04-13 00:00:00 Completed [facility] Influenza High Dose 2017-04-13 00:00:00 Completed [facility] Influenza High Dose 2017-04-13 00:00:00 Completed [facility] Influenza High Dose 2017-04-13 00:00:00 Completed [facility] Influenza High Dose 2017-04-13 00:00:00 Completed [facility] Influenza High Dose 2017-04-13 00:00:00 Completed [facility] Influenza High Dose 2017-04-13 00:00:00 Completed [facility] Influenza High Dose 2017-04-13 00:00:00 Completed [facility] Influenza High Dose 2017-04-13 00:00:00 Completed [facility] Influenza High Dose 2017-04-13 00:00:00 Completed [facility] Influenza High Dose 2017-04-13 00:00:00 Completed [facility] Influenza High Dose 2017-04-13 00:00:00 Completed [facility] Influenza High Dose 2017-04-13 00:00:00 Completed [facility] Influenza High Dose 2017-04-13 00:00:00 Completed [facility] Influenza High Dose 2017-04-13 00:00:00 Completed [facility] Influenza High Dose 2017-04-13 00:00:00 Completed [facility] Influenza High Dose 2017-04-13 00:00:00 Completed [facility] Influenza High Dose 2017-04-13 00:00:00 Completed [facility] Influenza High Dose 2017-04-13 00:00:00 Completed [facility] Influenza High Dose 2017-04-13 00:00:00 Completed [facility] Influenza High Dose 2017-04-13 00:00:00 Completed [facility] Influenza High Dose 2017-04-13 00:00:00 Completed [facility] Influenza High Dose 2017-04-13 00:00:00 Completed [facility] Influenza High Dose 2017-04-13 00:00:00 Completed [facility] Influenza High Dose 2017-04-13 00:00:00 Completed [facility] Influenza High Dose 2017-04-13 00:00:00 Completed [facility] Influenza High Dose 2017-04-13 00:00:00 Completed [facility] Influenza High Dose 2017-04-13 00:00:00 Completed [facility] Influenza High Dose 2017-04-13 00:00:00 Completed [facility] Influenza High Dose 2017-04-13 00:00:00 Completed [facility] Influenza High Dose 2017-04-13 00:00:00 Completed [facility] Influenza High Dose 2017-04-13 00:00:00 Completed [facility] Influenza High Dose 2017-04-13 00:00:00 Completed [facility] Influenza High Dose 2017-04-13 00:00:00 Completed [facility] Influenza High Dose 2017-04-13 00:00:00 Completed [facility] Influenza High Dose 2017-04-13 00:00:00 Completed [facility] Influenza High Dose 2017-04-13 00:00:00 Completed [facility] Influenza High Dose 2017-04-13 00:00:00 Completed [facility] Influenza High Dose 2017-04-13 00:00:00 Completed [facility] Influenza High Dose 2017-04-13 00:00:00 Completed [facility] Influenza High Dose 2017-04-13 00:00:00 Completed [facility] Influenza High Dose 2017-04-13 00:00:00 Completed [facility] Influenza High Dose 2017-04-13 00:00:00 Completed [facility] Influenza High Dose 2017-04-13 00:00:00 Completed [facility] Influenza High Dose 2017-04-13 00:00:00 Completed [facility] Influenza High Dose 2017-04-13 00:00:00 Completed [facility] Influenza High Dose 2017-04-13 00:00:00 Completed [facility] Influenza High Dose 2017-04-13 00:00:00 Completed [facility] Influenza High Dose 2017-04-13 00:00:00 Completed [facility] Influenza High Dose 2017-04-13 00:00:00 Completed [facility] Influenza High Dose 2017-04-13 00:00:00 Completed [facility] Influenza High Dose 2017-04-13 00:00:00 Completed [facility] Influenza High Dose 2017-04-13 00:00:00 Completed [facility] Influenza High Dose 2017-04-13 00:00:00 Completed [facility] Influenza High Dose 2017-04-13 00:00:00 Completed [facility] Influenza High Dose 2017-04-13 00:00:00 Completed [facility] Influenza High Dose 2017-04-13 00:00:00 Completed [facility] Influenza High Dose 2017-04-13 00:00:00 Completed [facility] Influenza High Dose 2017-04-13 00:00:00 Completed [facility] Influenza High Dose 2017-04-13 00:00:00 Completed [facility] Influenza High Dose 2017-04-13 00:00:00 Completed [facility] Influenza High Dose 2017-04-13 00:00:00 Completed [facility] Influenza High Dose 2017-04-13 00:00:00 Completed [facility] Influenza High Dose 2017-04-13 00:00:00 Completed [facility] Influenza High Dose 2017-04-13 00:00:00 Completed [facility] Influenza High Dose 2017-04-13 00:00:00 Completed [facility] Pneumococcal 13 Conjugate, PCV13 (Prevnar 13) 2016-07-12 00:00:00 Completed [facility] Influenza High Dose 2016-07-12 00:00:00 Completed [facility] Pneumococcal Polysaccharide, PPSV23 (PNEUMOVAX) 2016-07-12 00:00:00 Completed [facility] Pneumococcal 13 Conjugate, PCV13 (Prevnar 13) 2016-07-12 00:00:00 Completed [facility] Influenza High Dose 2016-07-12 00:00:00 Completed [facility] Pneumococcal Polysaccharide, PPSV23 (PNEUMOVAX) 2016-07-12 00:00:00 Completed [facility] Pneumococcal 13 Conjugate, PCV13 (Prevnar 13) 2016-07-12 00:00:00 Completed [facility] Influenza High Dose 2016-07-12 00:00:00 Completed [facility] Pneumococcal Polysaccharide, PPSV23 (PNEUMOVAX) 2016-07-12 00:00:00 Completed [facility] Pneumococcal 13 Conjugate, PCV13 (Prevnar 13) 2016-07-12 00:00:00 Completed [facility] Influenza High Dose 2016-07-12 00:00:00 Completed [facility] Pneumococcal Polysaccharide, PPSV23 (PNEUMOVAX) 2016-07-12 00:00:00 Completed [facility] Pneumococcal 13 Conjugate, PCV13 (Prevnar 13) 2016-07-12 00:00:00 Completed [facility] Influenza High Dose 2016-07-12 00:00:00 Completed [facility] Pneumococcal Polysaccharide, PPSV23 (PNEUMOVAX) 2016-07-12 00:00:00 Completed [facility] Pneumococcal 13 Conjugate, PCV13 (Prevnar 13) 2016-07-12 00:00:00 Completed [facility] Influenza High Dose 2016-07-12 00:00:00 Completed [facility] Pneumococcal Polysaccharide, PPSV23 (PNEUMOVAX) 2016-07-12 00:00:00 Completed [facility] Pneumococcal 13 Conjugate, PCV13 (Prevnar 13) 2016-07-12 00:00:00 Completed [facility] [facility] Influenza High Dose 2016-07-12 00:00:00 Completed [facility] Pneumococcal Polysaccharide, PPSV23 (PNEUMOVAX) 2016-07-12 00:00:00 Completed [facility] Pneumococcal 13 Conjugate, PCV13 (Prevnar 13) 2016-07-12 00:00:00 Completed [facility] Influenza High Dose 2016-07-12 00:00:00 Completed [facility] Pneumococcal Polysaccharide, PPSV23 (PNEUMOVAX) 2016-07-12 00:00:00 Completed [facility] Pneumococcal 13 Conjugate, PCV13 (Prevnar 13) 2016-07-12 00:00:00 Completed [facility] Influenza High Dose 2016-07-12 00:00:00 Completed [facility] Pneumococcal Polysaccharide, PPSV23 (PNEUMOVAX) 2016-07-12 00:00:00 Completed [facility] Pneumococcal 13 Conjugate, PCV13 (Prevnar 13) 2016-07-12 00:00:00 Completed [facility] Influenza High Dose 2016-07-12 00:00:00 Completed [facility] Pneumococcal Polysaccharide, PPSV23 (PNEUMOVAX) 2016-07-12 00:00:00 Completed [facility] Pneumococcal 13 Conjugate, PCV13 (Prevnar 13) 2016-07-12 00:00:00 Completed [facility] Influenza High Dose 2016-07-12 00:00:00 Completed [facility] Pneumococcal Polysaccharide, PPSV23 (PNEUMOVAX) 2016-07-12 00:00:00 Completed [facility] Pneumococcal 13 Conjugate, PCV13 (Prevnar 13) 2016-07-12 00:00:00 Completed [facility] Influenza High Dose 2016-07-12 00:00:00 Completed [facility] Pneumococcal Polysaccharide, PPSV23 (PNEUMOVAX) 2016-07-12 00:00:00 Completed [facility] Pneumococcal 13 Conjugate, PCV13 (Prevnar 13) 2016-07-12 00:00:00 Completed [facility] Influenza High Dose 2016-07-12 00:00:00 Completed [facility] Pneumococcal Polysaccharide, PPSV23 (PNEUMOVAX) 2016-07-12 00:00:00 Completed [facility] Pneumococcal 13 Conjugate, PCV13 (Prevnar 13) 2016-07-12 00:00:00 Completed [facility] Influenza High Dose 2016-07-12 00:00:00 Completed [facility] Pneumococcal Polysaccharide, PPSV23 (PNEUMOVAX) 2016-07-12 00:00:00 Completed [facility] Pneumococcal 13 Conjugate, PCV13 (Prevnar 13) 2016-07-12 00:00:00 Completed [facility] Influenza High Dose 2016-07-12 00:00:00 Completed [facility] Pneumococcal Polysaccharide, PPSV23 (PNEUMOVAX) 2016-07-12 00:00:00 Completed [facility] Pneumococcal 13 Conjugate, PCV13 (Prevnar 13) 2016-07-12 00:00:00 Completed [facility] Influenza High Dose 2016-07-12 00:00:00 Completed [facility] Pneumococcal Polysaccharide, PPSV23 (PNEUMOVAX) 2016-07-12 00:00:00 Completed [facility] Pneumococcal 13 Conjugate, PCV13 (Prevnar 13) 2016-07-12 00:00:00 Completed [facility] Influenza High Dose 2016-07-12 00:00:00 Completed [facility] Pneumococcal Polysaccharide, PPSV23 (PNEUMOVAX) 2016-07-12 00:00:00 Completed [facility] Pneumococcal 13 Conjugate, PCV13 (Prevnar 13) 2016-07-12 00:00:00 Completed [facility] Influenza High Dose 2016-07-12 00:00:00 Completed [facility] Pneumococcal Polysaccharide, PPSV23 (PNEUMOVAX) 2016-07-12 00:00:00 Completed [facility] Pneumococcal 13 Conjugate, PCV13 (Prevnar 13) 2016-07-12 00:00:00 Completed [facility] Influenza High Dose 2016-07-12 00:00:00 Completed [facility] Pneumococcal Polysaccharide, PPSV23 (PNEUMOVAX) 2016-07-12 00:00:00 Completed [facility] Pneumococcal 13 Conjugate, PCV13 (Prevnar 13) 2016-07-12 00:00:00 Completed [facility] Influenza High Dose 2016-07-12 00:00:00 Completed [facility] Pneumococcal Polysaccharide, PPSV23 (PNEUMOVAX) 2016-07-12 00:00:00 Completed [facility] Pneumococcal 13 Conjugate, PCV13 (Prevnar 13) 2016-07-12 00:00:00 Completed [facility] Influenza High Dose 2016-07-12 00:00:00 Completed [facility] Pneumococcal Polysaccharide, PPSV23 (PNEUMOVAX) 2016-07-12 00:00:00 Completed [facility] Pneumococcal 13 Conjugate, PCV13 (Prevnar 13) 2016-07-12 00:00:00 Completed [facility] Influenza High Dose 2016-07-12 00:00:00 Completed [facility] Pneumococcal Polysaccharide, PPSV23 (PNEUMOVAX) 2016-07-12 00:00:00 Completed [facility] Pneumococcal 13 Conjugate, PCV13 (Prevnar 13) 2016-07-12 00:00:00 Completed [facility] Influenza High Dose 2016-07-12 00:00:00 Completed [facility] Pneumococcal Polysaccharide, PPSV23 (PNEUMOVAX) 2016-07-12 00:00:00 Completed [facility] Pneumococcal 13 Conjugate, PCV13 (Prevnar 13) 2016-07-12 00:00:00 Completed [facility] Influenza High Dose 2016-07-12 00:00:00 Completed [facility] Pneumococcal Polysaccharide, PPSV23 (PNEUMOVAX) 2016-07-12 00:00:00 Completed [facility] Pneumococcal 13 Conjugate, PCV13 (Prevnar 13) 2016-07-12 00:00:00 Completed [facility] Influenza High Dose 2016-07-12 00:00:00 Completed [facility] Pneumococcal Polysaccharide, PPSV23 (PNEUMOVAX) 2016-07-12 00:00:00 Completed [facility] Pneumococcal 13 Conjugate, PCV13 (Prevnar 13) 2016-07-12 00:00:00 Completed [facility] Influenza High Dose 2016-07-12 00:00:00 Completed [facility] Pneumococcal Polysaccharide, PPSV23 (PNEUMOVAX) 2016-07-12 00:00:00 Completed [facility] Pneumococcal 13 Conjugate, PCV13 (Prevnar 13) 2016-07-12 00:00:00 Completed [facility] Influenza High Dose 2016-07-12 00:00:00 Completed [facility] Pneumococcal Polysaccharide, PPSV23 (PNEUMOVAX) 2016-07-12 00:00:00 Completed [facility] Pneumococcal 13 Conjugate, PCV13 (Prevnar 13) 2016-07-12 00:00:00 Completed [facility] Influenza High Dose 2016-07-12 00:00:00 Completed [facility] Pneumococcal Polysaccharide, PPSV23 (PNEUMOVAX) 2016-07-12 00:00:00 Completed [facility] Pneumococcal 13 Conjugate, PCV13 (Prevnar 13) 2016-07-12 00:00:00 Completed [facility] Influenza High Dose 2016-07-12 00:00:00 Completed [facility] Pneumococcal Polysaccharide, PPSV23 (PNEUMOVAX) 2016-07-12 00:00:00 Completed [facility] Pneumococcal 13 Conjugate, PCV13 (Prevnar 13) 2016-07-12 00:00:00 Completed [facility] Influenza High Dose 2016-07-12 00:00:00 Completed [facility] Pneumococcal Polysaccharide, PPSV23 (PNEUMOVAX) 2016-07-12 00:00:00 Completed [facility] Pneumococcal 13 Conjugate, PCV13 (Prevnar 13) 2016-07-12 00:00:00 Completed [facility] Influenza High Dose 2016-07-12 00:00:00 Completed [facility] Pneumococcal Polysaccharide, PPSV23 (PNEUMOVAX) 2016-07-12 00:00:00 Completed [facility] Pneumococcal 13 Conjugate, PCV13 (Prevnar 13) 2016-07-12 00:00:00 Completed [facility] Influenza High Dose 2016-07-12 00:00:00 Completed [facility] Pneumococcal Polysaccharide, PPSV23 (PNEUMOVAX) 2016-07-12 00:00:00 Completed [facility] Pneumococcal 13 Conjugate, PCV13 (Prevnar 13) 2016-07-12 00:00:00 Completed [facility] Influenza High Dose 2016-07-12 00:00:00 Completed [facility] Pneumococcal Polysaccharide, PPSV23 (PNEUMOVAX) 2016-07-12 00:00:00 Completed [facility] Pneumococcal 13 Conjugate, PCV13 (Prevnar 13) 2016-07-12 00:00:00 Completed [facility] Influenza High Dose 2016-07-12 00:00:00 Completed [facility] Pneumococcal Polysaccharide, PPSV23 (PNEUMOVAX) 2016-07-12 00:00:00 Completed [facility] Pneumococcal 13 Conjugate, PCV13 (Prevnar 13) 2016-07-12 00:00:00 Completed [facility] Influenza High Dose 2016-07-12 00:00:00 Completed [facility] Pneumococcal Polysaccharide, PPSV23 (PNEUMOVAX) 2016-07-12 00:00:00 Completed [facility] Pneumococcal 13 Conjugate, PCV13 (Prevnar 13) 2016-07-12 00:00:00 Completed [facility] Influenza High Dose 2016-07-12 00:00:00 Completed [facility] Pneumococcal Polysaccharide, PPSV23 (PNEUMOVAX) 2016-07-12 00:00:00 Completed [facility] Pneumococcal 13 Conjugate, PCV13 (Prevnar 13) 2016-07-12 00:00:00 Completed [facility] Influenza High Dose 2016-07-12 00:00:00 Completed [facility] Pneumococcal Polysaccharide, PPSV23 (PNEUMOVAX) 2016-07-12 00:00:00 Completed [facility] Pneumococcal 13 Conjugate, PCV13 (Prevnar 13) 2016-07-12 00:00:00 Completed [facility] Influenza High Dose 2016-07-12 00:00:00 Completed [facility] Pneumococcal Polysaccharide, PPSV23 (PNEUMOVAX) 2016-07-12 00:00:00 Completed [facility] Pneumococcal 13 Conjugate, PCV13 (Prevnar 13) 2016-07-12 00:00:00 Completed [facility] Influenza High Dose 2016-07-12 00:00:00 Completed [facility] Pneumococcal Polysaccharide, PPSV23 (PNEUMOVAX) 2016-07-12 00:00:00 Completed [facility] Pneumococcal 13 Conjugate, PCV13 (Prevnar 13) 2016-07-12 00:00:00 Completed [facility] Influenza High Dose 2016-07-12 00:00:00 Completed [facility] Pneumococcal Polysaccharide, PPSV23 (PNEUMOVAX) 2016-07-12 00:00:00 Completed [facility] Pneumococcal 13 Conjugate, PCV13 (Prevnar 13) 2016-07-12 00:00:00 Completed [facility] Influenza High Dose 2016-07-12 00:00:00 Completed [facility] Pneumococcal Polysaccharide, PPSV23 (PNEUMOVAX) 2016-07-12 00:00:00 Completed [facility] Pneumococcal 13 Conjugate, PCV13 (Prevnar 13) 2016-07-12 00:00:00 Completed [facility] Influenza High Dose 2016-07-12 00:00:00 Completed [facility] Pneumococcal Polysaccharide, PPSV23 (PNEUMOVAX) 2016-07-12 00:00:00 Completed [facility] Pneumococcal 13 Conjugate, PCV13 (Prevnar 13) 2016-07-12 00:00:00 Completed [facility] Influenza High Dose 2016-07-12 00:00:00 Completed [facility] Pneumococcal Polysaccharide, PPSV23 (PNEUMOVAX) 2016-07-12 00:00:00 Completed [facility] Pneumococcal 13 Conjugate, PCV13 (Prevnar 13) 2016-07-12 00:00:00 Completed [facility] Influenza High Dose 2016-07-12 00:00:00 Completed [facility] Pneumococcal Polysaccharide, PPSV23 (PNEUMOVAX) 2016-07-12 00:00:00 Completed [facility] Pneumococcal 13 Conjugate, PCV13 (Prevnar 13) 2016-07-12 00:00:00 Completed [facility] Influenza High Dose 2016-07-12 00:00:00 Completed [facility] Pneumococcal Polysaccharide, PPSV23 (PNEUMOVAX) 2016-07-12 00:00:00 Completed [facility] Pneumococcal 13 Conjugate, PCV13 (Prevnar 13) 2016-07-12 00:00:00 Completed [facility] Influenza High Dose 2016-07-12 00:00:00 Completed [facility] Pneumococcal Polysaccharide, PPSV23 (PNEUMOVAX) 2016-07-12 00:00:00 Completed [facility] Pneumococcal 13 Conjugate, PCV13 (Prevnar 13) 2016-07-12 00:00:00 Completed [facility] Influenza High Dose 2016-07-12 00:00:00 Completed [facility] Pneumococcal Polysaccharide, PPSV23 (PNEUMOVAX) 2016-07-12 00:00:00 Completed [facility] Pneumococcal 13 Conjugate, PCV13 (Prevnar 13) 2016-07-12 00:00:00 Completed [facility] Influenza High Dose 2016-07-12 00:00:00 Completed [facility] Pneumococcal Polysaccharide, PPSV23 (PNEUMOVAX) 2016-07-12 00:00:00 Completed [facility] Pneumococcal 13 Conjugate, PCV13 (Prevnar 13) 2016-07-12 00:00:00 Completed [facility] Influenza High Dose 2016-07-12 00:00:00 Completed [facility] Pneumococcal Polysaccharide, PPSV23 (PNEUMOVAX) 2016-07-12 00:00:00 Completed [facility] Pneumococcal 13 Conjugate, PCV13 (Prevnar 13) 2016-07-12 00:00:00 Completed [facility] Influenza High Dose 2016-07-12 00:00:00 Completed [facility] Pneumococcal Polysaccharide, PPSV23 (PNEUMOVAX) 2016-07-12 00:00:00 Completed [facility] Pneumococcal 13 Conjugate, PCV13 (Prevnar 13) 2016-07-12 00:00:00 Completed [facility] Influenza High Dose 2016-07-12 00:00:00 Completed [facility] Pneumococcal Polysaccharide, PPSV23 (PNEUMOVAX) 2016-07-12 00:00:00 Completed [facility] Pneumococcal 13 Conjugate, PCV13 (Prevnar 13) 2016-07-12 00:00:00 Completed [facility] Influenza High Dose 2016-07-12 00:00:00 Completed [facility] Pneumococcal Polysaccharide, PPSV23 (PNEUMOVAX) 2016-07-12 00:00:00 Completed [facility] Pneumococcal 13 Conjugate, PCV13 (Prevnar 13) 2016-07-12 00:00:00 Completed [facility] Influenza High Dose 2016-07-12 00:00:00 Completed [facility] Pneumococcal Polysaccharide, PPSV23 (PNEUMOVAX) 2016-07-12 00:00:00 Completed [facility] Pneumococcal 13 Conjugate, PCV13 (Prevnar 13) 2016-07-12 00:00:00 Completed [facility] Influenza High Dose 2016-07-12 00:00:00 Completed [facility] Pneumococcal Polysaccharide, PPSV23 (PNEUMOVAX) 2016-07-12 00:00:00 Completed [facility] Pneumococcal 13 Conjugate, PCV13 (Prevnar 13) 2016-07-12 00:00:00 Completed [facility] Influenza High Dose 2016-07-12 00:00:00 Completed [facility] Pneumococcal Polysaccharide, PPSV23 (PNEUMOVAX) 2016-07-12 00:00:00 Completed [facility] Pneumococcal 13 Conjugate, PCV13 (Prevnar 13) 2016-07-12 00:00:00 Completed [facility] Influenza High Dose 2016-07-12 00:00:00 Completed [facility] Pneumococcal Polysaccharide, PPSV23 (PNEUMOVAX) 2016-07-12 00:00:00 Completed [facility] Pneumococcal 13 Conjugate, PCV13 (Prevnar 13) 2016-07-12 00:00:00 Completed [facility] Influenza High Dose 2016-07-12 00:00:00 Completed [facility] Pneumococcal Polysaccharide, PPSV23 (PNEUMOVAX) 2016-07-12 00:00:00 Completed [facility] Pneumococcal 13 Conjugate, PCV13 (Prevnar 13) 2016-07-12 00:00:00 Completed [facility] Influenza High Dose 2016-07-12 00:00:00 Completed [facility] Pneumococcal Polysaccharide, PPSV23 (PNEUMOVAX) 2016-07-12 00:00:00 Completed [facility] Pneumococcal 13 Conjugate, PCV13 (Prevnar 13) 2016-07-12 00:00:00 Completed [facility] Influenza High Dose 2016-07-12 00:00:00 Completed [facility] Pneumococcal Polysaccharide, PPSV23 (PNEUMOVAX) 2016-07-12 00:00:00 Completed [facility] Pneumococcal 13 Conjugate, PCV13 (Prevnar 13) 2016-07-12 00:00:00 Completed [facility] Influenza High Dose 2016-07-12 00:00:00 Completed [facility] Pneumococcal Polysaccharide, PPSV23 (PNEUMOVAX) 2016-07-12 00:00:00 Completed [facility] Pneumococcal 13 Conjugate, PCV13 (Prevnar 13) 2016-07-12 00:00:00 Completed [facility] Influenza High Dose 2016-07-12 00:00:00 Completed [facility] Pneumococcal Polysaccharide, PPSV23 (PNEUMOVAX) 2016-07-12 00:00:00 Completed [facility] Pneumococcal 13 Conjugate, PCV13 (Prevnar 13) 2016-07-12 00:00:00 Completed [facility] Influenza High Dose 2016-07-12 00:00:00 Completed [facility] Pneumococcal Polysaccharide, PPSV23 (PNEUMOVAX) 2016-07-12 00:00:00 Completed [facility] Pneumococcal 13 Conjugate, PCV13 (Prevnar 13) 2016-07-12 00:00:00 Completed [facility] Influenza High Dose 2016-07-12 00:00:00 Completed [facility] Pneumococcal Polysaccharide, PPSV23 (PNEUMOVAX) 2016-07-12 00:00:00 Completed [facility] Pneumococcal 13 Conjugate, PCV13 (Prevnar 13) 2016-07-12 00:00:00 Completed [facility] Influenza High Dose 2016-07-12 00:00:00 Completed [facility] Pneumococcal Polysaccharide, PPSV23 (PNEUMOVAX) 2016-07-12 00:00:00 Completed [facility] Pneumococcal 13 Conjugate, PCV13 (Prevnar 13) 2016-07-12 00:00:00 Completed [facility] Influenza High Dose 2016-07-12 00:00:00 Completed [facility] Pneumococcal Polysaccharide, PPSV23 (PNEUMOVAX) 2016-07-12 00:00:00 Completed [facility] Pneumococcal 13 Conjugate, PCV13 (Prevnar 13) 2016-07-12 00:00:00 Completed [facility] Influenza High Dose 2016-07-12 00:00:00 Completed [facility] Pneumococcal Polysaccharide, PPSV23 (PNEUMOVAX) 2016-07-12 00:00:00 Completed [facility] Pneumococcal 13 Conjugate, PCV13 (Prevnar 13) 2016-07-12 00:00:00 Completed [facility] Influenza High Dose 2016-07-12 00:00:00 Completed [facility] Pneumococcal Polysaccharide, PPSV23 (PNEUMOVAX) 2016-07-12 00:00:00 Completed [facility] Pneumococcal 13 Conjugate, PCV13 (Prevnar 13) 2016-07-12 00:00:00 Completed [facility] Influenza High Dose 2016-07-12 00:00:00 Completed [facility] Pneumococcal Polysaccharide, PPSV23 (PNEUMOVAX) 2016-07-12 00:00:00 Completed [facility] Pneumococcal 13 Conjugate, PCV13 (Prevnar 13) 2016-07-12 00:00:00 Completed [facility] Influenza High Dose 2016-07-12 00:00:00 Completed [facility] Pneumococcal Polysaccharide, PPSV23 (PNEUMOVAX) 2016-07-12 00:00:00 Completed [facility] Pneumococcal 13 Conjugate, PCV13 (Prevnar 13) 2016-07-12 00:00:00 Completed [facility] Influenza High Dose 2016-07-12 00:00:00 Completed [facility] Pneumococcal Polysaccharide, PPSV23 (PNEUMOVAX) 2016-07-12 00:00:00 Completed [facility] Pneumococcal 13 Conjugate, PCV13 (Prevnar 13) 2016-07-12 00:00:00 Completed [facility] Influenza High Dose 2016-07-12 00:00:00 Completed [facility] Pneumococcal Polysaccharide, PPSV23 (PNEUMOVAX) 2016-07-12 00:00:00 Completed [facility] Pneumococcal 13 Conjugate, PCV13 (Prevnar 13) 2016-07-12 00:00:00 Completed [facility] Influenza High Dose 2016-07-12 00:00:00 Completed [facility] Pneumococcal Polysaccharide, PPSV23 (PNEUMOVAX) 2016-07-12 00:00:00 Completed [facility] Pneumococcal 13 Conjugate, PCV13 (Prevnar 13) 2016-07-12 00:00:00 Completed [facility] Influenza High Dose 2016-07-12 00:00:00 Completed [facility] Pneumococcal Polysaccharide, PPSV23 (PNEUMOVAX) 2016-07-12 00:00:00 Completed [facility] Pneumococcal 13 Conjugate, PCV13 (Prevnar 13) 2016-07-12 00:00:00 Completed [facility] Influenza High Dose 2016-07-12 00:00:00 Completed [facility] Pneumococcal Polysaccharide, PPSV23 (PNEUMOVAX) 2016-07-12 00:00:00 Completed [facility] Pneumococcal 13 Conjugate, PCV13 (Prevnar 13) 2016-07-12 00:00:00 Completed [facility] Influenza High Dose 2016-07-12 00:00:00 Completed [facility] Pneumococcal Polysaccharide, PPSV23 (PNEUMOVAX) 2016-07-12 00:00:00 Completed [facility] Pneumococcal 13 Conjugate, PCV13 (Prevnar 13) 2016-07-12 00:00:00 Completed [facility] Influenza High Dose 2016-07-12 00:00:00 Completed [facility] Pneumococcal Polysaccharide, PPSV23 (PNEUMOVAX) 2016-07-12 00:00:00 Completed [facility] Pneumococcal 13 Conjugate, PCV13 (Prevnar 13) 2016-07-12 00:00:00 Completed [facility] Influenza High Dose 2016-07-12 00:00:00 Completed [facility] Pneumococcal Polysaccharide, PPSV23 (PNEUMOVAX) 2016-07-12 00:00:00 Completed [facility] Pneumococcal 13 Conjugate, PCV13 (Prevnar 13) 2016-07-12 00:00:00 Completed [facility] Influenza High Dose 2016-07-12 00:00:00 Completed [facility] Pneumococcal Polysaccharide, PPSV23 (PNEUMOVAX) 2016-07-12 00:00:00 Completed [facility] Pneumococcal 13 Conjugate, PCV13 (Prevnar 13) 2016-07-12 00:00:00 Completed [facility] Influenza High Dose 2016-07-12 00:00:00 Completed [facility] Pneumococcal Polysaccharide, PPSV23 (PNEUMOVAX) 2016-07-12 00:00:00 Completed [facility] Pneumococcal 13 Conjugate, PCV13 (Prevnar 13) 2016-07-12 00:00:00 Completed [facility] Influenza High Dose 2016-07-12 00:00:00 Completed [facility] Pneumococcal Polysaccharide, PPSV23 (PNEUMOVAX) 2016-07-12 00:00:00 Completed [facility] Pneumococcal 13 Conjugate, PCV13 (Prevnar 13) 2016-07-12 00:00:00 Completed [facility] Influenza High Dose 2016-07-12 00:00:00 Completed [facility] Pneumococcal Polysaccharide, PPSV23 (PNEUMOVAX) 2016-07-12 00:00:00 Completed [facility] Pneumococcal 13 Conjugate, PCV13 (Prevnar 13) 2016-07-12 00:00:00 Completed [facility] Influenza High Dose 2016-07-12 00:00:00 Completed [facility] Pneumococcal Polysaccharide, PPSV23 (PNEUMOVAX) 2016-07-12 00:00:00 Completed [facility] Pneumococcal 13 Conjugate, PCV13 (Prevnar 13) 2016-07-12 00:00:00 Completed [facility] Influenza High Dose 2016-07-12 00:00:00 Completed [facility] Pneumococcal Polysaccharide, PPSV23 (PNEUMOVAX) 2016-07-12 00:00:00 Completed [facility] Pneumococcal 13 Conjugate, PCV13 (Prevnar 13) 2016-07-12 00:00:00 Completed [facility] Influenza High Dose 2016-07-12 00:00:00 Completed [facility] Pneumococcal Polysaccharide, PPSV23 (PNEUMOVAX) 2016-07-12 00:00:00 Completed [facility] Pneumococcal 13 Conjugate, PCV13 (Prevnar 13) 2016-07-12 00:00:00 Completed [facility] Influenza High Dose 2016-07-12 00:00:00 Completed [facility] Pneumococcal Polysaccharide, PPSV23 (PNEUMOVAX) 2016-07-12 00:00:00 Completed [facility] Pneumococcal 13 Conjugate, PCV13 (Prevnar 13) 2016-07-12 00:00:00 Completed [facility] Influenza High Dose 2016-07-12 00:00:00 Completed [facility] Pneumococcal Polysaccharide, PPSV23 (PNEUMOVAX) 2016-07-12 00:00:00 Completed [facility] Pneumococcal 13 Conjugate, PCV13 (Prevnar 13) 2016-07-12 00:00:00 Completed [facility] Influenza High Dose 2016-07-12 00:00:00 Completed [facility] Pneumococcal Polysaccharide, PPSV23 (PNEUMOVAX) 2016-07-12 00:00:00 Completed [facility] Pneumococcal 13 Conjugate, PCV13 (Prevnar 13) 2016-07-12 00:00:00 Completed [facility] Influenza High Dose 2016-07-12 00:00:00 Completed [facility] Pneumococcal Polysaccharide, PPSV23 (PNEUMOVAX) 2016-07-12 00:00:00 Completed [facility] Pneumococcal 13 Conjugate, PCV13 (Prevnar 13) 2016-07-12 00:00:00 Completed [facility] Influenza High Dose 2016-07-12 00:00:00 Completed [facility] Pneumococcal Polysaccharide, PPSV23 (PNEUMOVAX) 2016-07-12 00:00:00 Completed [facility] Pneumococcal 13 Conjugate, PCV13 (Prevnar 13) 2016-07-12 00:00:00 Completed [facility] Influenza High Dose 2016-07-12 00:00:00 Completed [facility] Pneumococcal Polysaccharide, PPSV23 (PNEUMOVAX) 2016-07-12 00:00:00 Completed [facility] Pneumococcal 13 Conjugate, PCV13 (Prevnar 13) 2016-07-12 00:00:00 Completed [facility] Influenza High Dose 2016-07-12 00:00:00 Completed [facility] Pneumococcal Polysaccharide, PPSV23 (PNEUMOVAX) 2016-07-12 00:00:00 Completed [facility] Pneumococcal 13 Conjugate, PCV13 (Prevnar 13) 2016-07-12 00:00:00 Completed [facility] Influenza High Dose 2016-07-12 00:00:00 Completed [facility] Pneumococcal Polysaccharide, PPSV23 (PNEUMOVAX) 2016-07-12 00:00:00 Completed [facility] Pneumococcal 13 Conjugate, PCV13 (Prevnar 13) 2016-07-12 00:00:00 Completed [facility] Influenza High Dose 2016-07-12 00:00:00 Completed [facility] Pneumococcal Polysaccharide, PPSV23 (PNEUMOVAX) 2016-07-12 00:00:00 Completed [facility] Pneumococcal 13 Conjugate, PCV13 (Prevnar 13) 2016-07-12 00:00:00 Completed [facility] Influenza High Dose 2016-07-12 00:00:00 Completed [facility] Pneumococcal Polysaccharide, PPSV23 (PNEUMOVAX) 2016-07-12 00:00:00 Completed [facility] Pneumococcal 13 Conjugate, PCV13 (Prevnar 13) 2016-07-12 00:00:00 Completed [facility] Influenza High Dose 2016-07-12 00:00:00 Completed [facility] Pneumococcal Polysaccharide, PPSV23 (PNEUMOVAX) 2016-07-12 00:00:00 Completed [facility] Pneumococcal 13 Conjugate, PCV13 (Prevnar 13) 2016-07-12 00:00:00 Completed [facility] Influenza High Dose 2016-07-12 00:00:00 Completed [facility] Pneumococcal Polysaccharide, PPSV23 (PNEUMOVAX) 2016-07-12 00:00:00 Completed [facility] Pneumococcal 13 Conjugate, PCV13 (Prevnar 13) 2016-07-12 00:00:00 Completed [facility] Influenza High Dose 2016-07-12 00:00:00 Completed [facility] Pneumococcal Polysaccharide, PPSV23 (PNEUMOVAX) 2016-07-12 00:00:00 Completed [facility] Pneumococcal 13 Conjugate, PCV13 (Prevnar 13) 2016-07-12 00:00:00 Completed [facility] Influenza High Dose 2016-07-12 00:00:00 Completed [facility] Pneumococcal Polysaccharide, PPSV23 (PNEUMOVAX) 2016-07-12 00:00:00 Completed [facility] Pneumococcal 13 Conjugate, PCV13 (Prevnar 13) 2016-07-12 00:00:00 Completed [facility] Influenza High Dose 2016-07-12 00:00:00 Completed [facility] Pneumococcal Polysaccharide, PPSV23 (PNEUMOVAX) 2016-07-12 00:00:00 Completed [facility] Pneumococcal 13 Conjugate, PCV13 (Prevnar 13) 2016-07-12 00:00:00 Completed [facility] Influenza High Dose 2016-07-12 00:00:00 Completed [facility] Pneumococcal Polysaccharide, PPSV23 (PNEUMOVAX) 2016-07-12 00:00:00 Completed [facility] Pneumococcal 13 Conjugate, PCV13 (Prevnar 13) 2016-07-12 00:00:00 Completed [facility] Influenza High Dose 2016-07-12 00:00:00 Completed [facility] Pneumococcal Polysaccharide, PPSV23 (PNEUMOVAX) 2016-07-12 00:00:00 Completed [facility] Pneumococcal 13 Conjugate, PCV13 (Prevnar 13) 2016-07-12 00:00:00 Completed [facility] Influenza High Dose 2016-07-12 00:00:00 Completed [facility] Pneumococcal Polysaccharide, PPSV23 (PNEUMOVAX) 2016-07-12 00:00:00 Completed [facility] Pneumococcal 13 Conjugate, PCV13 (Prevnar 13) 2016-07-12 00:00:00 Completed [facility] Influenza High Dose 2016-07-12 00:00:00 Completed [facility] Pneumococcal Polysaccharide, PPSV23 (PNEUMOVAX) 2016-07-12 00:00:00 Completed [facility] Pneumococcal 13 Conjugate, PCV13 (Prevnar 13) 2016-07-12 00:00:00 Completed [facility] Influenza High Dose 2016-07-12 00:00:00 Completed [facility] Pneumococcal Polysaccharide, PPSV23 (PNEUMOVAX) 2016-07-12 00:00:00 Completed [facility] Pneumococcal 13 Conjugate, PCV13 (Prevnar 13) 2016-07-12 00:00:00 Completed [facility] Influenza High Dose 2016-07-12 00:00:00 Completed [facility] Pneumococcal Polysaccharide, PPSV23 (PNEUMOVAX) 2016-07-12 00:00:00 Completed [facility] Pneumococcal 13 Conjugate, PCV13 (Prevnar 13) 2016-07-12 00:00:00 Completed [facility] Influenza High Dose 2016-07-12 00:00:00 Completed [facility] Pneumococcal Polysaccharide, PPSV23 (PNEUMOVAX) 2016-07-12 00:00:00 Completed [facility] Pneumococcal 13 Conjugate, PCV13 (Prevnar 13) 2016-07-12 00:00:00 Completed [facility] Influenza High Dose 2016-07-12 00:00:00 Completed [facility] Pneumococcal Polysaccharide, PPSV23 (PNEUMOVAX) 2016-07-12 00:00:00 Completed [facility] Pneumococcal 13 Conjugate, PCV13 (Prevnar 13) 2016-07-12 00:00:00 Completed [facility] Influenza High Dose 2016-07-12 00:00:00 Completed [facility] Pneumococcal Polysaccharide, PPSV23 (PNEUMOVAX) 2016-07-12 00:00:00 Completed [facility] Pneumococcal 13 Conjugate, PCV13 (Prevnar 13) 2016-07-12 00:00:00 Completed [facility] Influenza High Dose 2016-07-12 00:00:00 Completed [facility] Pneumococcal Polysaccharide, PPSV23 (PNEUMOVAX) 2016-07-12 00:00:00 Completed [facility] Pneumococcal 13 Conjugate, PCV13 (Prevnar 13) 2016-07-12 00:00:00 Completed [facility] Influenza High Dose 2016-07-12 00:00:00 Completed [facility] Pneumococcal Polysaccharide, PPSV23 (PNEUMOVAX) 2016-07-12 00:00:00 Completed [facility] Pneumococcal 13 Conjugate, PCV13 (Prevnar 13) 2016-07-12 00:00:00 Completed [facility] Influenza High Dose 2016-07-12 00:00:00 Completed [facility] Pneumococcal Polysaccharide, PPSV23 (PNEUMOVAX) 2016-07-12 00:00:00 Completed [facility] Pneumococcal 13 Conjugate, PCV13 (Prevnar 13) 2016-07-12 00:00:00 Completed [facility] Influenza High Dose 2016-07-12 00:00:00 Completed [facility] Pneumococcal Polysaccharide, PPSV23 (PNEUMOVAX) 2016-07-12 00:00:00 Completed [facility] Pneumococcal 13 Conjugate, PCV13 (Prevnar 13) 2016-07-12 00:00:00 Completed [facility] Influenza High Dose 2016-07-12 00:00:00 Completed [facility] Pneumococcal Polysaccharide, PPSV23 (PNEUMOVAX) 2016-07-12 00:00:00 Completed [facility] Pneumococcal 13 Conjugate, PCV13 (Prevnar 13) 2016-07-12 00:00:00 Completed [facility] Influenza High Dose 2016-07-12 00:00:00 Completed [facility] Pneumococcal Polysaccharide, PPSV23 (PNEUMOVAX) 2016-07-12 00:00:00 Completed [facility] Pneumococcal 13 Conjugate, PCV13 (Prevnar 13) 2016-07-12 00:00:00 Completed [facility] Influenza High Dose 2016-07-12 00:00:00 Completed [facility] Pneumococcal Polysaccharide, PPSV23 (PNEUMOVAX) 2016-07-12 00:00:00 Completed [facility] Pneumococcal 13 Conjugate, PCV13 (Prevnar 13) 2016-07-12 00:00:00 Completed [facility] Influenza High Dose 2016-07-12 00:00:00 Completed [facility] Pneumococcal Polysaccharide, PPSV23 (PNEUMOVAX) 2016-07-12 00:00:00 Completed [facility] Pneumococcal 13 Conjugate, PCV13 (Prevnar 13) 2016-07-12 00:00:00 Completed [facility] Influenza High Dose 2016-07-12 00:00:00 Completed [facility] Pneumococcal Polysaccharide, PPSV23 (PNEUMOVAX) 2016-07-12 00:00:00 Completed [facility] Pneumococcal 13 Conjugate, PCV13 (Prevnar 13) 2016-07-12 00:00:00 Completed [facility] Influenza High Dose 2016-07-12 00:00:00 Completed [facility] Pneumococcal Polysaccharide, PPSV23 (PNEUMOVAX) 2016-07-12 00:00:00 Completed [facility] Pneumococcal 13 Conjugate, PCV13 (Prevnar 13) 2016-07-12 00:00:00 Completed [facility] Influenza High Dose 2016-07-12 00:00:00 Completed [facility] Pneumococcal Polysaccharide, PPSV23 (PNEUMOVAX) 2016-07-12 00:00:00 Completed [facility] Pneumococcal 13 Conjugate, PCV13 (Prevnar 13) 2016-07-12 00:00:00 Completed [facility] Influenza High Dose 2016-07-12 00:00:00 Completed [facility] Pneumococcal Polysaccharide, PPSV23 (PNEUMOVAX) 2016-07-12 00:00:00 Completed [facility] Pneumococcal 13 Conjugate, PCV13 (Prevnar 13) 2016-07-12 00:00:00 Completed [facility] Influenza High Dose 2016-07-12 00:00:00 Completed [facility] Pneumococcal Polysaccharide, PPSV23 (PNEUMOVAX) 2016-07-12 00:00:00 Completed [facility] Pneumococcal 13 Conjugate, PCV13 (Prevnar 13) 2016-07-12 00:00:00 Completed [facility] Influenza High Dose 2016-07-12 00:00:00 Completed [facility] Pneumococcal Polysaccharide, PPSV23 (PNEUMOVAX) 2016-07-12 00:00:00 Completed [facility] Pneumococcal 13 Conjugate, PCV13 (Prevnar 13) 2016-07-12 00:00:00 Completed [facility] Influenza High Dose 2016-07-12 00:00:00 Completed [facility] Pneumococcal Polysaccharide, PPSV23 (PNEUMOVAX) 2016-07-12 00:00:00 Completed [facility] Pneumococcal 13 Conjugate, PCV13 (Prevnar 13) 2016-07-12 00:00:00 Completed [facility] Influenza High Dose 2016-07-12 00:00:00 Completed [facility] Pneumococcal Polysaccharide, PPSV23 (PNEUMOVAX) 2016-07-12 00:00:00 Completed [facility] Pneumococcal 13 Conjugate, PCV13 (Prevnar 13) 2016-07-12 00:00:00 Completed [facility] Influenza High Dose 2016-07-12 00:00:00 Completed [facility] Pneumococcal Polysaccharide, PPSV23 (PNEUMOVAX) 2016-07-12 00:00:00 Completed [facility] Pneumococcal 13 Conjugate, PCV13 (Prevnar 13) 2016-07-12 00:00:00 Completed [facility] Influenza High Dose 2016-07-12 00:00:00 Completed [facility] Pneumococcal Polysaccharide, PPSV23 (PNEUMOVAX) 2016-07-12 00:00:00 Completed [facility] Pneumococcal 13 Conjugate, PCV13 (Prevnar 13) 2016-07-12 00:00:00 Completed [facility] Influenza High Dose 2016-07-12 00:00:00 Completed [facility] Pneumococcal Polysaccharide, PPSV23 (PNEUMOVAX) 2016-07-12 00:00:00 Completed [facility] Pneumococcal 13 Conjugate, PCV13 (Prevnar 13) 2016-07-12 00:00:00 Completed [facility] Influenza High Dose 2016-07-12 00:00:00 Completed [facility] Pneumococcal Polysaccharide, PPSV23 (PNEUMOVAX) 2016-07-12 00:00:00 Completed [facility] Pneumococcal 13 Conjugate, PCV13 (Prevnar 13) 2016-07-12 00:00:00 Completed [facility] Influenza High Dose 2016-07-12 00:00:00 Completed [facility] Pneumococcal Polysaccharide, PPSV23 (PNEUMOVAX) 2016-07-12 00:00:00 Completed [facility] Pneumococcal 13 Conjugate, PCV13 (Prevnar 13) 2016-07-12 00:00:00 Completed [facility] Influenza High Dose 2016-07-12 00:00:00 Completed [facility] Pneumococcal Polysaccharide, PPSV23 (PNEUMOVAX) 2016-07-12 00:00:00 Completed [facility] Pneumococcal 13 Conjugate, PCV13 (Prevnar 13) 2016-07-12 00:00:00 Completed [facility] Influenza High Dose 2016-07-12 00:00:00 Completed [facility] Pneumococcal Polysaccharide, PPSV23 (PNEUMOVAX) 2016-07-12 00:00:00 Completed [facility] Pneumococcal 13 Conjugate, PCV13 (Prevnar 13) 2016-07-12 00:00:00 Completed [facility] Influenza High Dose 2016-07-12 00:00:00 Completed [facility] Pneumococcal Polysaccharide, PPSV23 (PNEUMOVAX) 2016-07-12 00:00:00 Completed [facility] Pneumococcal 13 Conjugate, PCV13 (Prevnar 13) 2016-07-12 00:00:00 Completed [facility] Influenza High Dose 2016-07-12 00:00:00 Completed [facility] Pneumococcal Polysaccharide, PPSV23 (PNEUMOVAX) 2016-07-12 00:00:00 Completed [facility] Pneumococcal 13 Conjugate, PCV13 (Prevnar 13) 2016-07-12 00:00:00 Completed [facility] Influenza High Dose 2016-07-12 00:00:00 Completed [facility] Pneumococcal Polysaccharide, PPSV23 (PNEUMOVAX) 2016-07-12 00:00:00 Completed [facility] Pneumococcal 13 Conjugate, PCV13 (Prevnar 13) 2016-07-12 00:00:00 Completed [facility] Influenza High Dose 2016-07-12 00:00:00 Completed [facility] Pneumococcal Polysaccharide, PPSV23 (PNEUMOVAX) 2016-07-12 00:00:00 Completed [facility] Pneumococcal 13 Conjugate, PCV13 (Prevnar 13) 2016-07-12 00:00:00 Completed [facility] Influenza High Dose 2016-07-12 00:00:00 Completed [facility] Pneumococcal Polysaccharide, PPSV23 (PNEUMOVAX) 2016-07-12 00:00:00 Completed [facility] Pneumococcal 13 Conjugate, PCV13 (Prevnar 13) 2016-07-12 00:00:00 Completed [facility] Influenza High Dose 2016-07-12 00:00:00 Completed [facility] Pneumococcal Polysaccharide, PPSV23 (PNEUMOVAX) 2016-07-12 00:00:00 Completed [facility] Pneumococcal 13 Conjugate, PCV13 (Prevnar 13) 2016-07-12 00:00:00 Completed [facility] Influenza High Dose 2016-07-12 00:00:00 Completed [facility] Pneumococcal Polysaccharide, PPSV23 (PNEUMOVAX) 2016-07-12 00:00:00 Completed [facility] Pneumococcal 13 Conjugate, PCV13 (Prevnar 13) 2016-07-12 00:00:00 Completed [facility] Influenza High Dose 2016-07-12 00:00:00 Completed [facility] Pneumococcal Polysaccharide, PPSV23 (PNEUMOVAX) 2016-07-12 00:00:00 Completed [facility] Pneumococcal 13 Conjugate, PCV13 (Prevnar 13) 2016-07-12 00:00:00 Completed [facility] Influenza High Dose 2016-07-12 00:00:00 Completed [facility] Pneumococcal Polysaccharide, PPSV23 (PNEUMOVAX) 2016-07-12 00:00:00 Completed [facility] Pneumococcal 13 Conjugate, PCV13 (Prevnar 13) 2016-07-12 00:00:00 Completed [facility] Influenza High Dose 2016-07-12 00:00:00 Completed [facility] Pneumococcal Polysaccharide, PPSV23 (PNEUMOVAX) 2016-07-12 00:00:00 Completed [facility] Pneumococcal 13 Conjugate, PCV13 (Prevnar 13) 2016-07-12 00:00:00 Completed [facility] Influenza High Dose 2016-07-12 00:00:00 Completed [facility] Pneumococcal Polysaccharide, PPSV23 (PNEUMOVAX) 2016-07-12 00:00:00 Completed [facility] Pneumococcal 13 Conjugate, PCV13 (Prevnar 13) 2016-07-12 00:00:00 Completed [facility] Influenza High Dose 2016-07-12 00:00:00 Completed [facility] Pneumococcal Polysaccharide, PPSV23 (PNEUMOVAX) 2016-07-12 00:00:00 Completed [facility] Pneumococcal 13 Conjugate, PCV13 (Prevnar 13) 2016-07-12 00:00:00 Completed [facility] Influenza High Dose 2016-07-12 00:00:00 Completed [facility] Pneumococcal Polysaccharide, PPSV23 (PNEUMOVAX) 2016-07-12 00:00:00 Completed [facility] Pneumococcal 13 Conjugate, PCV13 (Prevnar 13) 2016-07-12 00:00:00 Completed [facility] Influenza High Dose 2016-07-12 00:00:00 Completed [facility] Pneumococcal Polysaccharide, PPSV23 (PNEUMOVAX) 2016-07-12 00:00:00 Completed [facility] Pneumococcal 13 Conjugate, PCV13 (Prevnar 13) 2016-07-12 00:00:00 Completed [facility] Influenza High Dose 2016-07-12 00:00:00 Completed [facility] Pneumococcal Polysaccharide, PPSV23 (PNEUMOVAX) 2016-07-12 00:00:00 Completed [facility] Pneumococcal 13 Conjugate, PCV13 (Prevnar 13) 2016-07-12 00:00:00 Completed [facility] Influenza High Dose 2016-07-12 00:00:00 Completed [facility] Pneumococcal Polysaccharide, PPSV23 (PNEUMOVAX) 2016-07-12 00:00:00 Completed [facility] Pneumococcal 13 Conjugate, PCV13 (Prevnar 13) 2016-07-12 00:00:00 Completed [facility] Influenza High Dose 2016-07-12 00:00:00 Completed [facility] Pneumococcal Polysaccharide, PPSV23 (PNEUMOVAX) 2016-07-12 00:00:00 Completed [facility] Pneumococcal 13 Conjugate, PCV13 (Prevnar 13) 2016-07-12 00:00:00 Completed [facility] Influenza High Dose 2016-07-12 00:00:00 Completed [facility] Pneumococcal Polysaccharide, PPSV23 (PNEUMOVAX) 2016-07-12 00:00:00 Completed [facility] Pneumococcal 13 Conjugate, PCV13 (Prevnar 13) 2016-07-12 00:00:00 Completed [facility] Influenza High Dose 2016-07-12 00:00:00 Completed [facility] Pneumococcal Polysaccharide, PPSV23 (PNEUMOVAX) 2016-07-12 00:00:00 Completed [facility] Pneumococcal 13 Conjugate, PCV13 (Prevnar 13) 2016-07-12 00:00:00 Completed [facility] Influenza High Dose 2016-07-12 00:00:00 Completed [facility] Pneumococcal Polysaccharide, PPSV23 (PNEUMOVAX) 2016-07-12 00:00:00 Completed [facility] Pneumococcal 13 Conjugate, PCV13 (Prevnar 13) 2016-07-12 00:00:00 Completed [facility] Influenza High Dose 2016-07-12 00:00:00 Completed [facility] Pneumococcal Polysaccharide, PPSV23 (PNEUMOVAX) 2016-07-12 00:00:00 Completed [facility] Pneumococcal 13 Conjugate, PCV13 (Prevnar 13) 2016-07-12 00:00:00 Completed [facility] Influenza High Dose 2016-07-12 00:00:00 Completed [facility] Pneumococcal Polysaccharide, PPSV23 (PNEUMOVAX) 2016-07-12 00:00:00 Completed [facility] Pneumococcal 13 Conjugate, PCV13 (Prevnar 13) 2016-07-12 00:00:00 Completed [facility] Influenza High Dose 2016-07-12 00:00:00 Completed [facility] Pneumococcal Polysaccharide, PPSV23 (PNEUMOVAX) 2016-07-12 00:00:00 Completed [facility] Pneumococcal 13 Conjugate, PCV13 (Prevnar 13) 2016-07-12 00:00:00 Completed [facility] Influenza High Dose 2016-07-12 00:00:00 Completed [facility] Pneumococcal Polysaccharide, PPSV23 (PNEUMOVAX) 2016-07-12 00:00:00 Completed [facility] Pneumococcal 13 Conjugate, PCV13 (Prevnar 13) 2016-07-12 00:00:00 Completed [facility] Influenza High Dose 2016-07-12 00:00:00 Completed [facility] Pneumococcal Polysaccharide, PPSV23 (PNEUMOVAX) 2016-07-12 00:00:00 Completed [facility] Pneumococcal 13 Conjugate, PCV13 (Prevnar 13) 2016-07-12 00:00:00 Completed [facility] Influenza High Dose 2016-07-12 00:00:00 Completed [facility] Pneumococcal Polysaccharide, PPSV23 (PNEUMOVAX) 2016-07-12 00:00:00 Completed [facility] Pneumococcal 13 Conjugate, PCV13 (Prevnar 13) 2016-07-12 00:00:00 Completed [facility] Influenza High Dose 2016-07-12 00:00:00 Completed [facility] Pneumococcal Polysaccharide, PPSV23 (PNEUMOVAX) 2016-07-12 00:00:00 Completed [facility] Pneumococcal 13 Conjugate, PCV13 (Prevnar 13) 2016-07-12 00:00:00 Completed [facility] Influenza High Dose 2016-07-12 00:00:00 Completed [facility] Pneumococcal Polysaccharide, PPSV23 (PNEUMOVAX) 2016-07-12 00:00:00 Completed [facility] Pneumococcal 13 Conjugate, PCV13 (Prevnar 13) 2016-07-12 00:00:00 Completed [facility] Influenza High Dose 2016-07-12 00:00:00 Completed [facility] Pneumococcal Polysaccharide, PPSV23 (PNEUMOVAX) 2016-07-12 00:00:00 Completed [facility] Pneumococcal 13 Conjugate, PCV13 (Prevnar 13) 2016-07-12 00:00:00 Completed [facility] Influenza High Dose 2016-07-12 00:00:00 Completed [facility] Pneumococcal Polysaccharide, PPSV23 (PNEUMOVAX) 2016-07-12 00:00:00 Completed [facility] Pneumococcal 13 Conjugate, PCV13 (Prevnar 13) 2016-07-12 00:00:00 Completed [facility] Influenza High Dose 2016-07-12 00:00:00 Completed [facility] Pneumococcal Polysaccharide, PPSV23 (PNEUMOVAX) 2016-07-12 00:00:00 Completed [facility] Pneumococcal 13 Conjugate, PCV13 (Prevnar 13) 2016-07-12 00:00:00 Completed [facility] Influenza High Dose 2016-07-12 00:00:00 Completed [facility] Pneumococcal Polysaccharide, PPSV23 (PNEUMOVAX) 2016-07-12 00:00:00 Completed [facility] Pneumococcal 13 Conjugate, PCV13 (Prevnar 13) 2016-07-12 00:00:00 Completed [facility] Influenza High Dose 2016-07-12 00:00:00 Completed [facility] Pneumococcal Polysaccharide, PPSV23 (PNEUMOVAX) 2016-07-12 00:00:00 Completed [facility] Pneumococcal Polysaccharide, PPSV23 (PNEUMOVAX) 2016-07-11 00:00:00 Completed [facility] Pneumococcal Polysaccharide, PPSV23 (PNEUMOVAX) 2016-07-11 00:00:00 Completed [facility] Pneumococcal Polysaccharide, PPSV23 (PNEUMOVAX) 2016-07-11 00:00:00 Completed [facility] Pneumococcal Polysaccharide, PPSV23 (PNEUMOVAX) 2016-07-11 00:00:00 Completed [facility] Pneumococcal Polysaccharide, PPSV23 (PNEUMOVAX) 2016-07-11 00:00:00 Completed [facility] Pneumococcal Polysaccharide, PPSV23 (PNEUMOVAX) 2016-07-11 00:00:00 Completed [facility] Pneumococcal Polysaccharide, PPSV23 (PNEUMOVAX) 2016-07-11 00:00:00 Completed [facility] Pneumococcal Polysaccharide, PPSV23 (PNEUMOVAX) 2016-07-11 00:00:00 Completed [facility] Pneumococcal Polysaccharide, PPSV23 (PNEUMOVAX) 2016-07-11 00:00:00 Completed [facility] Pneumococcal Polysaccharide, PPSV23 (PNEUMOVAX) 2016-07-11 00:00:00 Completed [facility] Pneumococcal Polysaccharide, PPSV23 (PNEUMOVAX) 2016-07-11 00:00:00 Completed [facility] Pneumococcal Polysaccharide, PPSV23 (PNEUMOVAX) 2016-07-11 00:00:00 Completed [facility] Pneumococcal Polysaccharide, PPSV23 (PNEUMOVAX) 2016-07-11 00:00:00 Completed [facility] Pneumococcal Polysaccharide, PPSV23 (PNEUMOVAX) 2016-07-11 00:00:00 Completed [facility] Pneumococcal Polysaccharide, PPSV23 (PNEUMOVAX) 2016-07-11 00:00:00 Completed [facility] Pneumococcal Polysaccharide, PPSV23 (PNEUMOVAX) 2016-07-11 00:00:00 Completed [facility] Pneumococcal Polysaccharide, PPSV23 (PNEUMOVAX) 2016-07-11 00:00:00 Completed [facility] Pneumococcal Polysaccharide, PPSV23 (PNEUMOVAX) 2016-07-11 00:00:00 Completed [facility] Pneumococcal Polysaccharide, PPSV23 (PNEUMOVAX) 2016-07-11 00:00:00 Completed [facility] Pneumococcal Polysaccharide, PPSV23 (PNEUMOVAX) 2016-07-11 00:00:00 Completed [facility] Pneumococcal Polysaccharide, PPSV23 (PNEUMOVAX) 2016-07-11 00:00:00 Completed [facility] Pneumococcal Polysaccharide, PPSV23 (PNEUMOVAX) 2016-07-11 00:00:00 Completed [facility] Pneumococcal Polysaccharide, PPSV23 (PNEUMOVAX) 2016-07-11 00:00:00 Completed [facility] Pneumococcal Polysaccharide, PPSV23 (PNEUMOVAX) 2016-07-11 00:00:00 Completed [facility] Pneumococcal Polysaccharide, PPSV23 (PNEUMOVAX) 2016-07-11 00:00:00 Completed [facility] Pneumococcal Polysaccharide, PPSV23 (PNEUMOVAX) 2016-07-11 00:00:00 Completed [facility] Pneumococcal Polysaccharide, PPSV23 (PNEUMOVAX) 2016-07-11 00:00:00 Completed [facility] Pneumococcal Polysaccharide, PPSV23 (PNEUMOVAX) 2016-07-11 00:00:00 Completed [facility] Pneumococcal Polysaccharide, PPSV23 (PNEUMOVAX) 2016-07-11 00:00:00 Completed [facility] Pneumococcal Polysaccharide, PPSV23 (PNEUMOVAX) 2016-07-11 00:00:00 Completed [facility] Pneumococcal Polysaccharide, PPSV23 (PNEUMOVAX) 2016-07-11 00:00:00 Completed [facility] Pneumococcal Polysaccharide, PPSV23 (PNEUMOVAX) 2016-07-11 00:00:00 Completed [facility] Pneumococcal Polysaccharide, PPSV23 (PNEUMOVAX) 2016-07-11 00:00:00 Completed [facility] Pneumococcal Polysaccharide, PPSV23 (PNEUMOVAX) 2016-07-11 00:00:00 Completed [facility] Pneumococcal Polysaccharide, PPSV23 (PNEUMOVAX) 2016-07-11 00:00:00 Completed [facility] Pneumococcal Polysaccharide, PPSV23 (PNEUMOVAX) 2016-07-11 00:00:00 Completed [facility] Pneumococcal Polysaccharide, PPSV23 (PNEUMOVAX) 2016-07-11 00:00:00 Completed [facility] Pneumococcal Polysaccharide, PPSV23 (PNEUMOVAX) 2016-07-11 00:00:00 Completed [facility] Pneumococcal Polysaccharide, PPSV23 (PNEUMOVAX) 2016-07-11 00:00:00 Completed [facility] Pneumococcal Polysaccharide, PPSV23 (PNEUMOVAX) 2016-07-11 00:00:00 Completed [facility] Pneumococcal Polysaccharide, PPSV23 (PNEUMOVAX) 2016-07-11 00:00:00 Completed [facility] Pneumococcal Polysaccharide, PPSV23 (PNEUMOVAX) 2016-07-11 00:00:00 Completed [facility] Pneumococcal Polysaccharide, PPSV23 (PNEUMOVAX) 2016-07-11 00:00:00 Completed [facility] Pneumococcal Polysaccharide, PPSV23 (PNEUMOVAX) 2016-07-11 00:00:00 Completed [facility] Pneumococcal Polysaccharide, PPSV23 (PNEUMOVAX) 2016-07-11 00:00:00 Completed [facility] Pneumococcal Polysaccharide, PPSV23 (PNEUMOVAX) 2016-07-11 00:00:00 Completed [facility] Pneumococcal Polysaccharide, PPSV23 (PNEUMOVAX) 2016-07-11 00:00:00 Completed [facility] Pneumococcal Polysaccharide, PPSV23 (PNEUMOVAX) 2016-07-11 00:00:00 Completed [facility] Pneumococcal Polysaccharide, PPSV23 (PNEUMOVAX) 2016-07-11 00:00:00 Completed [facility] Pneumococcal Polysaccharide, PPSV23 (PNEUMOVAX) 2016-07-11 00:00:00 Completed [facility] Pneumococcal Polysaccharide, PPSV23 (PNEUMOVAX) 2016-07-11 00:00:00 Completed [facility] Pneumococcal Polysaccharide, PPSV23 (PNEUMOVAX) 2016-07-11 00:00:00 Completed [facility] Pneumococcal Polysaccharide, PPSV23 (PNEUMOVAX) 2016-07-11 00:00:00 Completed [facility] Pneumococcal Polysaccharide, PPSV23 (PNEUMOVAX) 2016-07-11 00:00:00 Completed [facility] Pneumococcal Polysaccharide, PPSV23 (PNEUMOVAX) 2016-07-11 00:00:00 Completed [facility] Pneumococcal Polysaccharide, PPSV23 (PNEUMOVAX) 2016-07-11 00:00:00 Completed [facility] Pneumococcal Polysaccharide, PPSV23 (PNEUMOVAX) 2016-07-11 00:00:00 Completed [facility] Pneumococcal Polysaccharide, PPSV23 (PNEUMOVAX) 2016-07-11 00:00:00 Completed [facility] Pneumococcal Polysaccharide, PPSV23 (PNEUMOVAX) 2016-07-11 00:00:00 Completed [facility] Pneumococcal Polysaccharide, PPSV23 (PNEUMOVAX) 2016-07-11 00:00:00 Completed [facility] Pneumococcal Polysaccharide, PPSV23 (PNEUMOVAX) 2016-07-11 00:00:00 Completed [facility] Pneumococcal Polysaccharide, PPSV23 (PNEUMOVAX) 2016-07-11 00:00:00 Completed [facility] Pneumococcal Polysaccharide, PPSV23 (PNEUMOVAX) 2016-07-11 00:00:00 Completed [facility] Pneumococcal Polysaccharide, PPSV23 (PNEUMOVAX) 2016-07-11 00:00:00 Completed [facility] Pneumococcal Polysaccharide, PPSV23 (PNEUMOVAX) 2016-07-11 00:00:00 Completed [facility] Pneumococcal Polysaccharide, PPSV23 (PNEUMOVAX) 2016-07-11 00:00:00 Completed [facility] Pneumococcal Polysaccharide, PPSV23 (PNEUMOVAX) 2016-07-11 00:00:00 Completed [facility] Pneumococcal Polysaccharide, PPSV23 (PNEUMOVAX) 2016-07-11 00:00:00 Completed [facility] Pneumococcal Polysaccharide, PPSV23 (PNEUMOVAX) 2016-07-11 00:00:00 Completed [facility] Pneumococcal Polysaccharide, PPSV23 (PNEUMOVAX) 2016-07-11 00:00:00 Completed [facility] Pneumococcal Polysaccharide, PPSV23 (PNEUMOVAX) 2016-07-11 00:00:00 Completed [facility] Pneumococcal Polysaccharide, PPSV23 (PNEUMOVAX) 2016-07-11 00:00:00 Completed [facility] Pneumococcal Polysaccharide, PPSV23 (PNEUMOVAX) 2016-07-11 00:00:00 Completed [facility] Pneumococcal Polysaccharide, PPSV23 (PNEUMOVAX) 2016-07-11 00:00:00 Completed [facility] Pneumococcal Polysaccharide, PPSV23 (PNEUMOVAX) 2016-07-11 00:00:00 Completed [facility] Pneumococcal Polysaccharide, PPSV23 (PNEUMOVAX) 2016-07-11 00:00:00 Completed [facility] Pneumococcal Polysaccharide, PPSV23 (PNEUMOVAX) 2016-07-11 00:00:00 Completed [facility] Pneumococcal Polysaccharide, PPSV23 (PNEUMOVAX) 2016-07-11 00:00:00 Completed [facility] Pneumococcal Polysaccharide, PPSV23 (PNEUMOVAX) 2016-07-11 00:00:00 Completed [facility] Pneumococcal Polysaccharide, PPSV23 (PNEUMOVAX) 2016-07-11 00:00:00 Completed [facility] Pneumococcal Polysaccharide, PPSV23 (PNEUMOVAX) 2016-07-11 00:00:00 Completed [facility] Pneumococcal Polysaccharide, PPSV23 (PNEUMOVAX) 2016-07-11 00:00:00 Completed [facility] Pneumococcal Polysaccharide, PPSV23 (PNEUMOVAX) 2016-07-11 00:00:00 Completed [facility] Pneumococcal Polysaccharide, PPSV23 (PNEUMOVAX) 2016-07-11 00:00:00 Completed [facility] Pneumococcal Polysaccharide, PPSV23 (PNEUMOVAX) 2016-07-11 00:00:00 Completed [facility] Pneumococcal Polysaccharide, PPSV23 (PNEUMOVAX) 2016-07-11 00:00:00 Completed [facility] Pneumococcal Polysaccharide, PPSV23 (PNEUMOVAX) 2016-07-11 00:00:00 Completed [facility] Pneumococcal Polysaccharide, PPSV23 (PNEUMOVAX) 2016-07-11 00:00:00 Completed [facility] Pneumococcal Polysaccharide, PPSV23 (PNEUMOVAX) 2016-07-11 00:00:00 Completed [facility] Pneumococcal Polysaccharide, PPSV23 (PNEUMOVAX) 2016-07-11 00:00:00 Completed [facility] Pneumococcal Polysaccharide, PPSV23 (PNEUMOVAX) 2016-07-11 00:00:00 Completed [facility] Pneumococcal Polysaccharide, PPSV23 (PNEUMOVAX) 2016-07-11 00:00:00 Completed [facility] Pneumococcal Polysaccharide, PPSV23 (PNEUMOVAX) 2016-07-11 00:00:00 Completed [facility] Pneumococcal Polysaccharide, PPSV23 (PNEUMOVAX) 2016-07-11 00:00:00 Completed [facility] Pneumococcal Polysaccharide, PPSV23 (PNEUMOVAX) 2016-07-11 00:00:00 Completed [facility] Pneumococcal Polysaccharide, PPSV23 (PNEUMOVAX) 2016-07-11 00:00:00 Completed [facility] Pneumococcal Polysaccharide, PPSV23 (PNEUMOVAX) 2016-07-11 00:00:00 Completed [facility] Pneumococcal Polysaccharide, PPSV23 (PNEUMOVAX) 2016-07-11 00:00:00 Completed [facility] Pneumococcal Polysaccharide, PPSV23 (PNEUMOVAX) 2016-07-11 00:00:00 Completed [facility] Pneumococcal Polysaccharide, PPSV23 (PNEUMOVAX) 2016-07-11 00:00:00 Completed [facility] Pneumococcal Polysaccharide, PPSV23 (PNEUMOVAX) 2016-07-11 00:00:00 Completed [facility] Pneumococcal Polysaccharide, PPSV23 (PNEUMOVAX) 2016-07-11 00:00:00 Completed [facility] Pneumococcal Polysaccharide, PPSV23 (PNEUMOVAX) 2016-07-11 00:00:00 Completed [facility] Pneumococcal Polysaccharide, PPSV23 (PNEUMOVAX) 2016-07-11 00:00:00 Completed [facility] Pneumococcal Polysaccharide, PPSV23 (PNEUMOVAX) 2016-07-11 00:00:00 Completed [facility] Pneumococcal Polysaccharide, PPSV23 (PNEUMOVAX) 2016-07-11 00:00:00 Completed [facility] Pneumococcal Polysaccharide, PPSV23 (PNEUMOVAX) 2016-07-11 00:00:00 Completed [facility] Pneumococcal Polysaccharide, PPSV23 (PNEUMOVAX) 2016-07-11 00:00:00 Completed [facility] Pneumococcal Polysaccharide, PPSV23 (PNEUMOVAX) 2016-07-11 00:00:00 Completed [facility] Pneumococcal Polysaccharide, PPSV23 (PNEUMOVAX) 2016-07-11 00:00:00 Completed [facility] Pneumococcal Polysaccharide, PPSV23 (PNEUMOVAX) 2016-07-11 00:00:00 Completed [facility] Pneumococcal Polysaccharide, PPSV23 (PNEUMOVAX) 2016-07-11 00:00:00 Completed [facility] Pneumococcal Polysaccharide, PPSV23 (PNEUMOVAX) 2016-07-11 00:00:00 Completed [facility] Pneumococcal Polysaccharide, PPSV23 (PNEUMOVAX) 2016-07-11 00:00:00 Completed [facility] Pneumococcal Polysaccharide, PPSV23 (PNEUMOVAX) 2016-07-11 00:00:00 Completed [facility] Pneumococcal Polysaccharide, PPSV23 (PNEUMOVAX) 2016-07-11 00:00:00 Completed [facility] Pneumococcal Polysaccharide, PPSV23 (PNEUMOVAX) 2016-07-11 00:00:00 Completed [facility] Pneumococcal Polysaccharide, PPSV23 (PNEUMOVAX) 2016-07-11 00:00:00 Completed [facility] Pneumococcal Polysaccharide, PPSV23 (PNEUMOVAX) 2016-07-11 00:00:00 Completed [facility] Pneumococcal Polysaccharide, PPSV23 (PNEUMOVAX) 2016-07-11 00:00:00 Completed [facility] Pneumococcal Polysaccharide, PPSV23 (PNEUMOVAX) 2016-07-11 00:00:00 Completed [facility] Pneumococcal Polysaccharide, PPSV23 (PNEUMOVAX) 2016-07-11 00:00:00 Completed [facility] Pneumococcal Polysaccharide, PPSV23 (PNEUMOVAX) 2016-07-11 00:00:00 Completed [facility] Pneumococcal Polysaccharide, PPSV23 (PNEUMOVAX) 2016-07-11 00:00:00 Completed [facility] Pneumococcal Polysaccharide, PPSV23 (PNEUMOVAX) 2016-07-11 00:00:00 Completed [facility] Pneumococcal Polysaccharide, PPSV23 (PNEUMOVAX) 2016-07-11 00:00:00 Completed [facility] Pneumococcal Polysaccharide, PPSV23 (PNEUMOVAX) 2016-07-11 00:00:00 Completed [facility] Pneumococcal Polysaccharide, PPSV23 (PNEUMOVAX) 2016-07-11 00:00:00 Completed [facility] Pneumococcal Polysaccharide, PPSV23 (PNEUMOVAX) 2016-07-11 00:00:00 Completed [facility] Pneumococcal Polysaccharide, PPSV23 (PNEUMOVAX) 2016-07-11 00:00:00 Completed [facility] Pneumococcal Polysaccharide, PPSV23 (PNEUMOVAX) 2016-07-11 00:00:00 Completed [facility] Pneumococcal Polysaccharide, PPSV23 (PNEUMOVAX) 2016-07-11 00:00:00 Completed [facility] Pneumococcal Polysaccharide, PPSV23 (PNEUMOVAX) 2016-07-11 00:00:00 Completed [facility] Pneumococcal Polysaccharide, PPSV23 (PNEUMOVAX) 2016-07-11 00:00:00 Completed [facility] Pneumococcal Polysaccharide, PPSV23 (PNEUMOVAX) 2016-07-11 00:00:00 Completed [facility] Pneumococcal Polysaccharide, PPSV23 (PNEUMOVAX) 2016-07-11 00:00:00 Completed [facility] Pneumococcal Polysaccharide, PPSV23 (PNEUMOVAX) 2016-07-11 00:00:00 Completed [facility] Pneumococcal Polysaccharide, PPSV23 (PNEUMOVAX) 2016-07-11 00:00:00 Completed [facility] Pneumococcal Polysaccharide, PPSV23 (PNEUMOVAX) 2016-07-11 00:00:00 Completed [facility] Pneumococcal Polysaccharide, PPSV23 (PNEUMOVAX) 2016-07-11 00:00:00 Completed [facility] Pneumococcal Polysaccharide, PPSV23 (PNEUMOVAX) 2016-07-11 00:00:00 Completed [facility] Pneumococcal Polysaccharide, PPSV23 (PNEUMOVAX) 2016-07-11 00:00:00 Completed [facility] Pneumococcal Polysaccharide, PPSV23 (PNEUMOVAX) 2016-07-11 00:00:00 Completed [facility] Pneumococcal Polysaccharide, PPSV23 (PNEUMOVAX) 2016-07-11 00:00:00 Completed [facility] Pneumococcal Polysaccharide, PPSV23 (PNEUMOVAX) 2016-07-11 00:00:00 Completed [facility] Pneumococcal Polysaccharide, PPSV23 (PNEUMOVAX) 2016-07-11 00:00:00 Completed [facility] Pneumococcal Polysaccharide, PPSV23 (PNEUMOVAX) 2016-07-11 00:00:00 Completed [facility] Pneumococcal Polysaccharide, PPSV23 (PNEUMOVAX) 2016-07-11 00:00:00 Completed [facility] Pneumococcal Polysaccharide, PPSV23 (PNEUMOVAX) 2016-07-11 00:00:00 Completed [facility] Pneumococcal Polysaccharide, PPSV23 (PNEUMOVAX) 2016-07-11 00:00:00 Completed [facility] Pneumococcal Polysaccharide, PPSV23 (PNEUMOVAX) 2016-07-11 00:00:00 Completed [facility] Pneumococcal Polysaccharide, PPSV23 (PNEUMOVAX) 2016-07-11 00:00:00 Completed [facility] Pneumococcal Polysaccharide, PPSV23 (PNEUMOVAX) 2016-07-11 00:00:00 Completed [facility] Pneumococcal Polysaccharide, PPSV23 (PNEUMOVAX) 2016-07-11 00:00:00 Completed [facility] Pneumococcal Polysaccharide, PPSV23 (PNEUMOVAX) 2016-07-11 00:00:00 Completed [facility] Pneumococcal Polysaccharide, PPSV23 (PNEUMOVAX) 2016-07-11 00:00:00 Completed [facility] Pneumococcal Polysaccharide, PPSV23 (PNEUMOVAX) 2016-07-11 00:00:00 Completed [facility] Pneumococcal Polysaccharide, PPSV23 (PNEUMOVAX) 2016-07-11 00:00:00 Completed [facility] Pneumococcal Polysaccharide, PPSV23 (PNEUMOVAX) 2016-07-11 00:00:00 Completed [facility] Pneumococcal Polysaccharide, PPSV23 (PNEUMOVAX) 2016-07-11 00:00:00 Completed [facility] Pneumococcal Polysaccharide, PPSV23 (PNEUMOVAX) 2016-07-11 00:00:00 Completed [facility] Pneumococcal Polysaccharide, PPSV23 (PNEUMOVAX) 2016-07-11 00:00:00 Completed [facility] Pneumococcal Polysaccharide, PPSV23 (PNEUMOVAX) 2016-07-11 00:00:00 Completed [facility] Pneumococcal Polysaccharide, PPSV23 (PNEUMOVAX) 2016-07-11 00:00:00 Completed [facility] Pneumococcal Polysaccharide, PPSV23 (PNEUMOVAX) 2011-06-19 00:00:00 Completed [facility] Pneumococcal Polysaccharide, PPSV23 (PNEUMOVAX) 2011-06-19 00:00:00 Completed [facility] Pneumococcal Polysaccharide, PPSV23 (PNEUMOVAX) 2011-06-19 00:00:00 Completed [facility] Pneumococcal Polysaccharide, PPSV23 (PNEUMOVAX) 2011-06-19 00:00:00 Completed [facility] Pneumococcal Polysaccharide, PPSV23 (PNEUMOVAX) 2011-06-19 00:00:00 Completed [facility] Pneumococcal Polysaccharide, PPSV23 (PNEUMOVAX) 2011-06-19 00:00:00 Completed [facility] Pneumococcal Polysaccharide, PPSV23 (PNEUMOVAX) 2011-06-19 00:00:00 Completed [facility] Pneumococcal Polysaccharide, PPSV23 (PNEUMOVAX) 2011-06-19 00:00:00 Completed [facility] Pneumococcal Polysaccharide, PPSV23 (PNEUMOVAX) 2011-06-19 00:00:00 Completed [facility] Pneumococcal Polysaccharide, PPSV23 (PNEUMOVAX) 2011-06-19 00:00:00 Completed [facility] Pneumococcal Polysaccharide, PPSV23 (PNEUMOVAX) 2011-06-19 00:00:00 Completed [facility] Pneumococcal Polysaccharide, PPSV23 (PNEUMOVAX) 2011-06-19 00:00:00 Completed [facility] Pneumococcal Polysaccharide, PPSV23 (PNEUMOVAX) 2011-06-19 00:00:00 Completed [facility] Pneumococcal Polysaccharide, PPSV23 (PNEUMOVAX) 2011-06-19 00:00:00 Completed [facility] Pneumococcal Polysaccharide, PPSV23 (PNEUMOVAX) 2011-06-19 00:00:00 Completed [facility] Pneumococcal Polysaccharide, PPSV23 (PNEUMOVAX) 2011-06-19 00:00:00 Completed [facility] Pneumococcal Polysaccharide, PPSV23 (PNEUMOVAX) 2011-06-19 00:00:00 Completed [facility] Pneumococcal Polysaccharide, PPSV23 (PNEUMOVAX) 2011-06-19 00:00:00 Completed [facility] Pneumococcal Polysaccharide, PPSV23 (PNEUMOVAX) 2011-06-19 00:00:00 Completed [facility] Pneumococcal Polysaccharide, PPSV23 (PNEUMOVAX) 2011-06-19 00:00:00 Completed [facility] Pneumococcal Polysaccharide, PPSV23 (PNEUMOVAX) 2011-06-19 00:00:00 Completed [facility] Pneumococcal Polysaccharide, PPSV23 (PNEUMOVAX) 2011-06-19 00:00:00 Completed [facility] Pneumococcal Polysaccharide, PPSV23 (PNEUMOVAX) 2011-06-19 00:00:00 Completed [facility] Pneumococcal Polysaccharide, PPSV23 (PNEUMOVAX) 2011-06-19 00:00:00 Completed [facility] Pneumococcal Polysaccharide, PPSV23 (PNEUMOVAX) 2011-06-19 00:00:00 Completed [facility] Pneumococcal Polysaccharide, PPSV23 (PNEUMOVAX) 2011-06-19 00:00:00 Completed [facility] Pneumococcal Polysaccharide, PPSV23 (PNEUMOVAX) 2011-06-19 00:00:00 Completed [facility] Pneumococcal Polysaccharide, PPSV23 (PNEUMOVAX) 2011-06-19 00:00:00 Completed [facility] Pneumococcal Polysaccharide, PPSV23 (PNEUMOVAX) 2011-06-19 00:00:00 Completed [facility] Pneumococcal Polysaccharide, PPSV23 (PNEUMOVAX) 2011-06-19 00:00:00 Completed [facility] Pneumococcal Polysaccharide, PPSV23 (PNEUMOVAX) 2011-06-19 00:00:00 Completed [facility] Pneumococcal Polysaccharide, PPSV23 (PNEUMOVAX) 2011-06-19 00:00:00 Completed [facility] Pneumococcal Polysaccharide, PPSV23 (PNEUMOVAX) 2011-06-19 00:00:00 Completed [facility] Pneumococcal Polysaccharide, PPSV23 (PNEUMOVAX) 2011-06-19 00:00:00 Completed [facility] Pneumococcal Polysaccharide, PPSV23 (PNEUMOVAX) 2011-06-19 00:00:00 Completed [facility] Pneumococcal Polysaccharide, PPSV23 (PNEUMOVAX) 2011-06-19 00:00:00 Completed [facility] Pneumococcal Polysaccharide, PPSV23 (PNEUMOVAX) 2011-06-19 00:00:00 Completed [facility] Pneumococcal Polysaccharide, PPSV23 (PNEUMOVAX) 2011-06-19 00:00:00 Completed [facility] Pneumococcal Polysaccharide, PPSV23 (PNEUMOVAX) 2011-06-19 00:00:00 Completed [facility] Pneumococcal Polysaccharide, PPSV23 (PNEUMOVAX) 2011-06-19 00:00:00 Completed [facility] Pneumococcal Polysaccharide, PPSV23 (PNEUMOVAX) 2011-06-19 00:00:00 Completed [facility] Pneumococcal Polysaccharide, PPSV23 (PNEUMOVAX) 2011-06-19 00:00:00 Completed [facility] Pneumococcal Polysaccharide, PPSV23 (PNEUMOVAX) 2011-06-19 00:00:00 Completed [facility] Pneumococcal Polysaccharide, PPSV23 (PNEUMOVAX) 2011-06-19 00:00:00 Completed [facility] Pneumococcal Polysaccharide, PPSV23 (PNEUMOVAX) 2011-06-19 00:00:00 Completed [facility] Pneumococcal Polysaccharide, PPSV23 (PNEUMOVAX) 2011-06-19 00:00:00 Completed [facility] Pneumococcal Polysaccharide, PPSV23 (PNEUMOVAX) 2011-06-19 00:00:00 Completed [facility] Pneumococcal Polysaccharide, PPSV23 (PNEUMOVAX) 2011-06-19 00:00:00 Completed [facility] Pneumococcal Polysaccharide, PPSV23 (PNEUMOVAX) 2011-06-19 00:00:00 Completed [facility] Pneumococcal Polysaccharide, PPSV23 (PNEUMOVAX) 2011-06-19 00:00:00 Completed [facility] Pneumococcal Polysaccharide, PPSV23 (PNEUMOVAX) 2011-06-19 00:00:00 Completed [facility] Pneumococcal Polysaccharide, PPSV23 (PNEUMOVAX) 2011-06-19 00:00:00 Completed [facility] Pneumococcal Polysaccharide, PPSV23 (PNEUMOVAX) 2011-06-19 00:00:00 Completed [facility] Pneumococcal Polysaccharide, PPSV23 (PNEUMOVAX) 2011-06-19 00:00:00 Completed [facility] Pneumococcal Polysaccharide, PPSV23 (PNEUMOVAX) 2011-06-19 00:00:00 Completed [facility] Pneumococcal Polysaccharide, PPSV23 (PNEUMOVAX) 2011-06-19 00:00:00 Completed [facility] Pneumococcal Polysaccharide, PPSV23 (PNEUMOVAX) 2011-06-19 00:00:00 Completed [facility] Pneumococcal Polysaccharide, PPSV23 (PNEUMOVAX) 2011-06-19 00:00:00 Completed [facility] Pneumococcal Polysaccharide, PPSV23 (PNEUMOVAX) 2011-06-19 00:00:00 Completed [facility] Pneumococcal Polysaccharide, PPSV23 (PNEUMOVAX) 2011-06-19 00:00:00 Completed [facility] Pneumococcal Polysaccharide, PPSV23 (PNEUMOVAX) 2011-06-19 00:00:00 Completed [facility] Pneumococcal Polysaccharide, PPSV23 (PNEUMOVAX) 2011-06-19 00:00:00 Completed [facility] Pneumococcal Polysaccharide, PPSV23 (PNEUMOVAX) 2011-06-19 00:00:00 Completed [facility] Pneumococcal Polysaccharide, PPSV23 (PNEUMOVAX) 2011-06-19 00:00:00 Completed [facility] Pneumococcal Polysaccharide, PPSV23 (PNEUMOVAX) 2011-06-19 00:00:00 Completed [facility] Pneumococcal Polysaccharide, PPSV23 (PNEUMOVAX) 2011-06-19 00:00:00 Completed [facility] Pneumococcal Polysaccharide, PPSV23 (PNEUMOVAX) 2011-06-19 00:00:00 Completed [facility] Pneumococcal Polysaccharide, PPSV23 (PNEUMOVAX) 2011-06-19 00:00:00 Completed [facility] Pneumococcal Polysaccharide, PPSV23 (PNEUMOVAX) 2011-06-19 00:00:00 Completed [facility] Pneumococcal Polysaccharide, PPSV23 (PNEUMOVAX) 2011-06-19 00:00:00 Completed [facility] Pneumococcal Polysaccharide, PPSV23 (PNEUMOVAX) 2011-06-19 00:00:00 Completed [facility] Pneumococcal Polysaccharide, PPSV23 (PNEUMOVAX) 2011-06-19 00:00:00 Completed [facility] Pneumococcal Polysaccharide, PPSV23 (PNEUMOVAX) 2011-06-19 00:00:00 Completed [facility] Pneumococcal Polysaccharide, PPSV23 (PNEUMOVAX) 2011-06-19 00:00:00 Completed [facility] Pneumococcal Polysaccharide, PPSV23 (PNEUMOVAX) 2011-06-19 00:00:00 Completed [facility] Pneumococcal Polysaccharide, PPSV23 (PNEUMOVAX) 2011-06-19 00:00:00 Completed [facility] Pneumococcal Polysaccharide, PPSV23 (PNEUMOVAX) 2011-06-19 00:00:00 Completed [facility] Pneumococcal Polysaccharide, PPSV23 (PNEUMOVAX) 2011-06-19 00:00:00 Completed [facility] Pneumococcal Polysaccharide, PPSV23 (PNEUMOVAX) 2011-06-19 00:00:00 Completed [facility] Pneumococcal Polysaccharide, PPSV23 (PNEUMOVAX) 2011-06-19 00:00:00 Completed [facility] Pneumococcal Polysaccharide, PPSV23 (PNEUMOVAX) 2011-06-19 00:00:00 Completed [facility] Pneumococcal Polysaccharide, PPSV23 (PNEUMOVAX) 2011-06-19 00:00:00 Completed [facility] Pneumococcal Polysaccharide, PPSV23 (PNEUMOVAX) 2011-06-19 00:00:00 Completed [facility] Pneumococcal Polysaccharide, PPSV23 (PNEUMOVAX) 2011-06-19 00:00:00 Completed [facility] Pneumococcal Polysaccharide, PPSV23 (PNEUMOVAX) 2011-06-19 00:00:00 Completed [facility] Pneumococcal Polysaccharide, PPSV23 (PNEUMOVAX) 2011-06-19 00:00:00 Completed [facility] Pneumococcal Polysaccharide, PPSV23 (PNEUMOVAX) 2011-06-19 00:00:00 Completed [facility] Pneumococcal Polysaccharide, PPSV23 (PNEUMOVAX) 2011-06-19 00:00:00 Completed [facility] Pneumococcal Polysaccharide, PPSV23 (PNEUMOVAX) 2011-06-19 00:00:00 Completed [facility] Pneumococcal Polysaccharide, PPSV23 (PNEUMOVAX) 2011-06-19 00:00:00 Completed [facility] Pneumococcal Polysaccharide, PPSV23 (PNEUMOVAX) 2011-06-19 00:00:00 Completed [facility] Pneumococcal Polysaccharide, PPSV23 (PNEUMOVAX) 2011-06-19 00:00:00 Completed [facility] Pneumococcal Polysaccharide, PPSV23 (PNEUMOVAX) 2011-06-19 00:00:00 Completed [facility] Pneumococcal Polysaccharide, PPSV23 (PNEUMOVAX) 2011-06-19 00:00:00 Completed [facility] Pneumococcal Polysaccharide, PPSV23 (PNEUMOVAX) 2011-06-19 00:00:00 Completed [facility] Pneumococcal Polysaccharide, PPSV23 (PNEUMOVAX) 2011-06-19 00:00:00 Completed [facility] Pneumococcal Polysaccharide, PPSV23 (PNEUMOVAX) 2011-06-19 00:00:00 Completed [facility] Pneumococcal Polysaccharide, PPSV23 (PNEUMOVAX) 2011-06-19 00:00:00 Completed [facility] Pneumococcal Polysaccharide, PPSV23 (PNEUMOVAX) 2011-06-19 00:00:00 Completed [facility] Pneumococcal Polysaccharide, PPSV23 (PNEUMOVAX) 2011-06-19 00:00:00 Completed [facility] Pneumococcal Polysaccharide, PPSV23 (PNEUMOVAX) 2011-06-19 00:00:00 Completed [facility] Pneumococcal Polysaccharide, PPSV23 (PNEUMOVAX) 2011-06-19 00:00:00 Completed [facility] Pneumococcal Polysaccharide, PPSV23 (PNEUMOVAX) 2011-06-19 00:00:00 Completed [facility] Pneumococcal Polysaccharide, PPSV23 (PNEUMOVAX) 2011-06-19 00:00:00 Completed [facility] Pneumococcal Polysaccharide, PPSV23 (PNEUMOVAX) 2011-06-19 00:00:00 Completed [facility] Pneumococcal Polysaccharide, PPSV23 (PNEUMOVAX) 2011-06-19 00:00:00 Completed [facility] Pneumococcal Polysaccharide, PPSV23 (PNEUMOVAX) 2011-06-19 00:00:00 Completed [facility] Pneumococcal Polysaccharide, PPSV23 (PNEUMOVAX) 2011-06-19 00:00:00 Completed [facility] Pneumococcal Polysaccharide, PPSV23 (PNEUMOVAX) 2011-06-19 00:00:00 Completed [facility] Pneumococcal Polysaccharide, PPSV23 (PNEUMOVAX) 2011-06-19 00:00:00 Completed [facility] Pneumococcal Polysaccharide, PPSV23 (PNEUMOVAX) 2011-06-19 00:00:00 Completed [facility] Pneumococcal Polysaccharide, PPSV23 (PNEUMOVAX) 2011-06-19 00:00:00 Completed [facility] Pneumococcal Polysaccharide, PPSV23 (PNEUMOVAX) 2011-06-19 00:00:00 Completed [facility] Pneumococcal Polysaccharide, PPSV23 (PNEUMOVAX) 2011-06-19 00:00:00 Completed [facility] Pneumococcal Polysaccharide, PPSV23 (PNEUMOVAX) 2011-06-19 00:00:00 Completed [facility] Pneumococcal Polysaccharide, PPSV23 (PNEUMOVAX) 2011-06-19 00:00:00 Completed [facility] Pneumococcal Polysaccharide, PPSV23 (PNEUMOVAX) 2011-06-19 00:00:00 Completed [facility] Pneumococcal Polysaccharide, PPSV23 (PNEUMOVAX) 2011-06-19 00:00:00 Completed [facility] Pneumococcal Polysaccharide, PPSV23 (PNEUMOVAX) 2011-06-19 00:00:00 Completed [facility] Pneumococcal Polysaccharide, PPSV23 (PNEUMOVAX) 2011-06-19 00:00:00 Completed [facility] Pneumococcal Polysaccharide, PPSV23 (PNEUMOVAX) 2011-06-19 00:00:00 Completed [facility] Pneumococcal Polysaccharide, PPSV23 (PNEUMOVAX) 2011-06-19 00:00:00 Completed [facility] Pneumococcal Polysaccharide, PPSV23 (PNEUMOVAX) 2011-06-19 00:00:00 Completed [facility] Pneumococcal Polysaccharide, PPSV23 (PNEUMOVAX) 2011-06-19 00:00:00 Completed [facility] Pneumococcal Polysaccharide, PPSV23 (PNEUMOVAX) 2011-06-19 00:00:00 Completed [facility] Pneumococcal Polysaccharide, PPSV23 (PNEUMOVAX) 2011-06-19 00:00:00 Completed [facility] Pneumococcal Polysaccharide, PPSV23 (PNEUMOVAX) 2011-06-19 00:00:00 Completed [facility] Pneumococcal Polysaccharide, PPSV23 (PNEUMOVAX) 2011-06-19 00:00:00 Completed [facility] Pneumococcal Polysaccharide, PPSV23 (PNEUMOVAX) 2011-06-19 00:00:00 Completed [facility] Pneumococcal Polysaccharide, PPSV23 (PNEUMOVAX) 2011-06-19 00:00:00 Completed [facility] Pneumococcal Polysaccharide, PPSV23 (PNEUMOVAX) 2011-06-19 00:00:00 Completed [facility] Pneumococcal Polysaccharide, PPSV23 (PNEUMOVAX) 2011-06-19 00:00:00 Completed [facility] Pneumococcal Polysaccharide, PPSV23 (PNEUMOVAX) 2011-06-19 00:00:00 Completed [facility] Pneumococcal Polysaccharide, PPSV23 (PNEUMOVAX) 2011-06-19 00:00:00 Completed [facility] Pneumococcal Polysaccharide, PPSV23 (PNEUMOVAX) 2011-06-19 00:00:00 Completed [facility] Pneumococcal Polysaccharide, PPSV23 (PNEUMOVAX) 2011-06-19 00:00:00 Completed [facility] Pneumococcal Polysaccharide, PPSV23 (PNEUMOVAX) 2011-06-19 00:00:00 Completed [facility] Pneumococcal Polysaccharide, PPSV23 (PNEUMOVAX) 2011-06-19 00:00:00 Completed [facility] Pneumococcal Polysaccharide, PPSV23 (PNEUMOVAX) 2011-06-19 00:00:00 Completed [facility] Pneumococcal Polysaccharide, PPSV23 (PNEUMOVAX) 2011-06-19 00:00:00 Completed [facility] Pneumococcal Polysaccharide, PPSV23 (PNEUMOVAX) 2011-06-19 00:00:00 Completed [facility] Pneumococcal Polysaccharide, PPSV23 (PNEUMOVAX) 2011-06-19 00:00:00 Completed [facility] Pneumococcal Polysaccharide, PPSV23 (PNEUMOVAX) 2011-06-19 00:00:00 Completed [facility] Pneumococcal Polysaccharide, PPSV23 (PNEUMOVAX) 2011-06-19 00:00:00 Completed [facility] Pneumococcal Polysaccharide, PPSV23 (PNEUMOVAX) 2011-06-19 00:00:00 Completed [facility] Pneumococcal Polysaccharide, PPSV23 (PNEUMOVAX) 2011-06-19 00:00:00 Completed [facility] Pneumococcal Polysaccharide, PPSV23 (PNEUMOVAX) 2011-06-19 00:00:00 Completed [facility] Pneumococcal Polysaccharide, PPSV23 (PNEUMOVAX) 2011-06-19 00:00:00 Completed [facility] Pneumococcal Polysaccharide, PPSV23 (PNEUMOVAX) 2011-06-19 00:00:00 Completed [facility] Pneumococcal Polysaccharide, PPSV23 (PNEUMOVAX) 2011-06-19 00:00:00 Completed [facility] Pneumococcal Polysaccharide, PPSV23 (PNEUMOVAX) 2011-06-19 00:00:00 Completed [facility] Pneumococcal Polysaccharide, PPSV23 (PNEUMOVAX) 2011-06-19 00:00:00 Completed [facility] Pneumococcal Polysaccharide, PPSV23 (PNEUMOVAX) 2011-06-19 00:00:00 Completed [facility] Pneumococcal Polysaccharide, PPSV23 (PNEUMOVAX) 2011-06-19 00:00:00 Completed [facility] Pneumococcal Polysaccharide, PPSV23 (PNEUMOVAX) 2011-06-19 00:00:00 Completed [facility] Pneumococcal Polysaccharide, PPSV23 (PNEUMOVAX) 2011-06-19 00:00:00 Completed [facility] Pneumococcal Polysaccharide, PPSV23 (PNEUMOVAX) 2011-06-19 00:00:00 Completed [facility] Pneumococcal Polysaccharide, PPSV23 (PNEUMOVAX) 2011-06-19 00:00:00 Completed [facility] Pneumococcal Polysaccharide, PPSV23 (PNEUMOVAX) 2011-06-19 00:00:00 Completed [facility] Pneumococcal Polysaccharide, PPSV23 (PNEUMOVAX) 2011-06-19 00:00:00 Completed [facility] Pneumococcal Polysaccharide, PPSV23 (PNEUMOVAX) 2011-06-19 00:00:00 Completed [facility] Pneumococcal Polysaccharide, PPSV23 (PNEUMOVAX) 2011-06-19 00:00:00 Completed [facility] Pneumococcal Polysaccharide, PPSV23 (PNEUMOVAX) 2011-06-19 00:00:00 Completed [facility] Pneumococcal Polysaccharide, PPSV23 (PNEUMOVAX) 2011-06-19 00:00:00 Completed [facility] Pneumococcal Polysaccharide, PPSV23 (PNEUMOVAX) 2011-05-05 00:00:00 Completed [facility] TDAP 2011-05-05 00:00:00 Completed [facility] Pneumococcal Polysaccharide, PPSV23 (PNEUMOVAX) 2011-05-05 00:00:00 Completed [facility] TDAP 2011-05-05 00:00:00 Completed [facility] Pneumococcal Polysaccharide, PPSV23 (PNEUMOVAX) 2011-05-05 00:00:00 Completed [facility] TDAP 2011-05-05 00:00:00 Completed [facility] Pneumococcal Polysaccharide, PPSV23 (PNEUMOVAX) 2011-05-05 00:00:00 Completed [facility] TDAP 2011-05-05 00:00:00 Completed [facility] Pneumococcal Polysaccharide, PPSV23 (PNEUMOVAX) 2011-05-05 00:00:00 Completed [facility] TDAP 2011-05-05 00:00:00 Completed [facility] Pneumococcal Polysaccharide, PPSV23 (PNEUMOVAX) 2011-05-05 00:00:00 Completed [facility] TDAP 2011-05-05 00:00:00 Completed [facility] Pneumococcal Polysaccharide, PPSV23 (PNEUMOVAX) 2011-05-05 00:00:00 Completed [facility] TDAP 2011-05-05 00:00:00 Completed [facility] Pneumococcal Polysaccharide, PPSV23 (PNEUMOVAX) 2011-05-05 00:00:00 Completed [facility] TDAP 2011-05-05 00:00:00 Completed [facility] Pneumococcal Polysaccharide, PPSV23 (PNEUMOVAX) 2011-05-05 00:00:00 Completed [facility] TDAP 2011-05-05 00:00:00 Completed [facility] Pneumococcal Polysaccharide, PPSV23 (PNEUMOVAX) 2011-05-05 00:00:00 Completed [facility] TDAP 2011-05-05 00:00:00 Completed [facility] Pneumococcal Polysaccharide, PPSV23 (PNEUMOVAX) 2011-05-05 00:00:00 Completed [facility] TDAP 2011-05-05 00:00:00 Completed [facility] Pneumococcal Polysaccharide, PPSV23 (PNEUMOVAX) 2011-05-05 00:00:00 Completed [facility] TDAP 2011-05-05 00:00:00 Completed [facility] Pneumococcal Polysaccharide, PPSV23 (PNEUMOVAX) 2011-05-05 00:00:00 Completed [facility] TDAP 2011-05-05 00:00:00 Completed [facility] Pneumococcal Polysaccharide, PPSV23 (PNEUMOVAX) 2011-05-05 00:00:00 Completed [facility] TDAP 2011-05-05 00:00:00 Completed [facility] Pneumococcal Polysaccharide, PPSV23 (PNEUMOVAX) 2011-05-05 00:00:00 Completed [facility] TDAP 2011-05-05 00:00:00 Completed [facility] Pneumococcal Polysaccharide, PPSV23 (PNEUMOVAX) 2011-05-05 00:00:00 Completed [facility] TDAP 2011-05-05 00:00:00 Completed [facility] Pneumococcal Polysaccharide, PPSV23 (PNEUMOVAX) 2011-05-05 00:00:00 Completed [facility] TDAP 2011-05-05 00:00:00 Completed [facility] Pneumococcal Polysaccharide, PPSV23 (PNEUMOVAX) 2011-05-05 00:00:00 Completed [facility] TDAP 2011-05-05 00:00:00 Completed [facility] Pneumococcal Polysaccharide, PPSV23 (PNEUMOVAX) 2011-05-05 00:00:00 Completed [facility] TDAP 2011-05-05 00:00:00 Completed [facility] Pneumococcal Polysaccharide, PPSV23 (PNEUMOVAX) 2011-05-05 00:00:00 Completed [facility] TDAP 2011-05-05 00:00:00 Completed [facility] Pneumococcal Polysaccharide, PPSV23 (PNEUMOVAX) 2011-05-05 00:00:00 Completed [facility] TDAP 2011-05-05 00:00:00 Completed [facility] Pneumococcal Polysaccharide, PPSV23 (PNEUMOVAX) 2011-05-05 00:00:00 Completed [facility] TDAP 2011-05-05 00:00:00 Completed [facility] Pneumococcal Polysaccharide, PPSV23 (PNEUMOVAX) 2011-05-05 00:00:00 Completed [facility] TDAP 2011-05-05 00:00:00 Completed [facility] Pneumococcal Polysaccharide, PPSV23 (PNEUMOVAX) 2011-05-05 00:00:00 Completed [facility] TDAP 2011-05-05 00:00:00 Completed [facility] Pneumococcal Polysaccharide, PPSV23 (PNEUMOVAX) 2011-05-05 00:00:00 Completed [facility] TDAP 2011-05-05 00:00:00 Completed [facility] Pneumococcal Polysaccharide, PPSV23 (PNEUMOVAX) 2011-05-05 00:00:00 Completed [facility] TDAP 2011-05-05 00:00:00 Completed [facility] Pneumococcal Polysaccharide, PPSV23 (PNEUMOVAX) 2011-05-05 00:00:00 Completed [facility] TDAP 2011-05-05 00:00:00 Completed [facility] Pneumococcal Polysaccharide, PPSV23 (PNEUMOVAX) 2011-05-05 00:00:00 Completed [facility] TDAP 2011-05-05 00:00:00 Completed [facility] Pneumococcal Polysaccharide, PPSV23 (PNEUMOVAX) 2011-05-05 00:00:00 Completed [facility] TDAP 2011-05-05 00:00:00 Completed [facility] Pneumococcal Polysaccharide, PPSV23 (PNEUMOVAX) 2011-05-05 00:00:00 Completed [facility] TDAP 2011-05-05 00:00:00 Completed [facility] Pneumococcal Polysaccharide, PPSV23 (PNEUMOVAX) 2011-05-05 00:00:00 Completed [facility] TDAP 2011-05-05 00:00:00 Completed [facility] Pneumococcal Polysaccharide, PPSV23 (PNEUMOVAX) 2011-05-05 00:00:00 Completed [facility] TDAP 2011-05-05 00:00:00 Completed [facility] Pneumococcal Polysaccharide, PPSV23 (PNEUMOVAX) 2011-05-05 00:00:00 Completed [facility] TDAP 2011-05-05 00:00:00 Completed [facility] Pneumococcal Polysaccharide, PPSV23 (PNEUMOVAX) 2011-05-05 00:00:00 Completed [facility] TDAP 2011-05-05 00:00:00 Completed [facility] Pneumococcal Polysaccharide, PPSV23 (PNEUMOVAX) 2011-05-05 00:00:00 Completed [facility] TDAP 2011-05-05 00:00:00 Completed [facility] Pneumococcal Polysaccharide, PPSV23 (PNEUMOVAX) 2011-05-05 00:00:00 Completed [facility] TDAP 2011-05-05 00:00:00 Completed [facility] Pneumococcal Polysaccharide, PPSV23 (PNEUMOVAX) 2011-05-05 00:00:00 Completed [facility] TDAP 2011-05-05 00:00:00 Completed [facility] Pneumococcal Polysaccharide, PPSV23 (PNEUMOVAX) 2011-05-05 00:00:00 Completed [facility] TDAP 2011-05-05 00:00:00 Completed [facility] Pneumococcal Polysaccharide, PPSV23 (PNEUMOVAX) 2011-05-05 00:00:00 Completed [facility] TDAP 2011-05-05 00:00:00 Completed [facility] Pneumococcal Polysaccharide, PPSV23 (PNEUMOVAX) 2011-05-05 00:00:00 Completed [facility] TDAP 2011-05-05 00:00:00 Completed [facility] Pneumococcal Polysaccharide, PPSV23 (PNEUMOVAX) 2011-05-05 00:00:00 Completed [facility] TDAP 2011-05-05 00:00:00 Completed [facility] Pneumococcal Polysaccharide, PPSV23 (PNEUMOVAX) 2011-05-05 00:00:00 Completed [facility] TDAP 2011-05-05 00:00:00 Completed [facility] Pneumococcal Polysaccharide, PPSV23 (PNEUMOVAX) 2011-05-05 00:00:00 Completed [facility] TDAP 2011-05-05 00:00:00 Completed [facility] Pneumococcal Polysaccharide, PPSV23 (PNEUMOVAX) 2011-05-05 00:00:00 Completed [facility] TDAP 2011-05-05 00:00:00 Completed [facility] Pneumococcal Polysaccharide, PPSV23 (PNEUMOVAX) 2011-05-05 00:00:00 Completed [facility] TDAP 2011-05-05 00:00:00 Completed [facility] Pneumococcal Polysaccharide, PPSV23 (PNEUMOVAX) 2011-05-05 00:00:00 Completed [facility] TDAP 2011-05-05 00:00:00 Completed [facility] Pneumococcal Polysaccharide, PPSV23 (PNEUMOVAX) 2011-05-05 00:00:00 Completed [facility] TDAP 2011-05-05 00:00:00 Completed [facility] Pneumococcal Polysaccharide, PPSV23 (PNEUMOVAX) 2011-05-05 00:00:00 Completed [facility] TDAP 2011-05-05 00:00:00 Completed [facility] Pneumococcal Polysaccharide, PPSV23 (PNEUMOVAX) 2011-05-05 00:00:00 Completed [facility] TDAP 2011-05-05 00:00:00 Completed [facility] Pneumococcal Polysaccharide, PPSV23 (PNEUMOVAX) 2011-05-05 00:00:00 Completed [facility] TDAP 2011-05-05 00:00:00 Completed [facility] Pneumococcal Polysaccharide, PPSV23 (PNEUMOVAX) 2011-05-05 00:00:00 Completed [facility] TDAP 2011-05-05 00:00:00 Completed [facility] Pneumococcal Polysaccharide, PPSV23 (PNEUMOVAX) 2011-05-05 00:00:00 Completed [facility] TDAP 2011-05-05 00:00:00 Completed [facility] Pneumococcal Polysaccharide, PPSV23 (PNEUMOVAX) 2011-05-05 00:00:00 Completed [facility] TDAP 2011-05-05 00:00:00 Completed [facility] Pneumococcal Polysaccharide, PPSV23 (PNEUMOVAX) 2011-05-05 00:00:00 Completed [facility] TDAP 2011-05-05 00:00:00 Completed [facility] Pneumococcal Polysaccharide, PPSV23 (PNEUMOVAX) 2011-05-05 00:00:00 Completed [facility] TDAP 2011-05-05 00:00:00 Completed [facility] Pneumococcal Polysaccharide, PPSV23 (PNEUMOVAX) 2011-05-05 00:00:00 Completed [facility] TDAP 2011-05-05 00:00:00 Completed [facility] Pneumococcal Polysaccharide, PPSV23 (PNEUMOVAX) 2011-05-05 00:00:00 Completed [facility] TDAP 2011-05-05 00:00:00 Completed [facility] Pneumococcal Polysaccharide, PPSV23 (PNEUMOVAX) 2011-05-05 00:00:00 Completed [facility] TDAP 2011-05-05 00:00:00 Completed [facility] Pneumococcal Polysaccharide, PPSV23 (PNEUMOVAX) 2011-05-05 00:00:00 Completed [facility] TDAP 2011-05-05 00:00:00 Completed [facility] Pneumococcal Polysaccharide, PPSV23 (PNEUMOVAX) 2011-05-05 00:00:00 Completed [facility] TDAP 2011-05-05 00:00:00 Completed [facility] Pneumococcal Polysaccharide, PPSV23 (PNEUMOVAX) 2011-05-05 00:00:00 Completed [facility] TDAP 2011-05-05 00:00:00 Completed [facility] Pneumococcal Polysaccharide, PPSV23 (PNEUMOVAX) 2011-05-05 00:00:00 Completed [facility] TDAP 2011-05-05 00:00:00 Completed [facility] Pneumococcal Polysaccharide, PPSV23 (PNEUMOVAX) 2011-05-05 00:00:00 Completed [facility] TDAP 2011-05-05 00:00:00 Completed [facility] Pneumococcal Polysaccharide, PPSV23 (PNEUMOVAX) 2011-05-05 00:00:00 Completed [facility] TDAP 2011-05-05 00:00:00 Completed [facility] Pneumococcal Polysaccharide, PPSV23 (PNEUMOVAX) 2011-05-05 00:00:00 Completed [facility] TDAP 2011-05-05 00:00:00 Completed [facility] Pneumococcal Polysaccharide, PPSV23 (PNEUMOVAX) 2011-05-05 00:00:00 Completed [facility] TDAP 2011-05-05 00:00:00 Completed [facility] Pneumococcal Polysaccharide, PPSV23 (PNEUMOVAX) 2011-05-05 00:00:00 Completed [facility] TDAP 2011-05-05 00:00:00 Completed [facility] Pneumococcal Polysaccharide, PPSV23 (PNEUMOVAX) 2011-05-05 00:00:00 Completed [facility] TDAP 2011-05-05 00:00:00 Completed [facility] Pneumococcal Polysaccharide, PPSV23 (PNEUMOVAX) 2011-05-05 00:00:00 Completed [facility] TDAP 2011-05-05 00:00:00 Completed [facility] Pneumococcal Polysaccharide, PPSV23 (PNEUMOVAX) 2011-05-05 00:00:00 Completed [facility] TDAP 2011-05-05 00:00:00 Completed [facility] Pneumococcal Polysaccharide, PPSV23 (PNEUMOVAX) 2011-05-05 00:00:00 Completed [facility] TDAP 2011-05-05 00:00:00 Completed [facility] Pneumococcal Polysaccharide, PPSV23 (PNEUMOVAX) 2011-05-05 00:00:00 Completed [facility] TDAP 2011-05-05 00:00:00 Completed [facility] Pneumococcal Polysaccharide, PPSV23 (PNEUMOVAX) 2011-05-05 00:00:00 Completed [facility] TDAP 2011-05-05 00:00:00 Completed [facility] Pneumococcal Polysaccharide, PPSV23 (PNEUMOVAX) 2011-05-05 00:00:00 Completed [facility] TDAP 2011-05-05 00:00:00 Completed [facility] Pneumococcal Polysaccharide, PPSV23 (PNEUMOVAX) 2011-05-05 00:00:00 Completed [facility] TDAP 2011-05-05 00:00:00 Completed [facility] Pneumococcal Polysaccharide, PPSV23 (PNEUMOVAX) 2011-05-05 00:00:00 Completed [facility] TDAP 2011-05-05 00:00:00 Completed [facility] Pneumococcal Polysaccharide, PPSV23 (PNEUMOVAX) 2011-05-05 00:00:00 Completed [facility] TDAP 2011-05-05 00:00:00 Completed [facility] Pneumococcal Polysaccharide, PPSV23 (PNEUMOVAX) 2011-05-05 00:00:00 Completed [facility] TDAP 2011-05-05 00:00:00 Completed [facility] Pneumococcal Polysaccharide, PPSV23 (PNEUMOVAX) 2011-05-05 00:00:00 Completed [facility] TDAP 2011-05-05 00:00:00 Completed [facility] Pneumococcal Polysaccharide, PPSV23 (PNEUMOVAX) 2011-05-05 00:00:00 Completed [facility] TDAP 2011-05-05 00:00:00 Completed [facility] Pneumococcal Polysaccharide, PPSV23 (PNEUMOVAX) 2011-05-05 00:00:00 Completed [facility] TDAP 2011-05-05 00:00:00 Completed [facility] Pneumococcal Polysaccharide, PPSV23 (PNEUMOVAX) 2011-05-05 00:00:00 Completed [facility] TDAP 2011-05-05 00:00:00 Completed [facility] Pneumococcal Polysaccharide, PPSV23 (PNEUMOVAX) 2011-05-05 00:00:00 Completed [facility] TDAP 2011-05-05 00:00:00 Completed [facility] Pneumococcal Polysaccharide, PPSV23 (PNEUMOVAX) 2011-05-05 00:00:00 Completed [facility] TDAP 2011-05-05 00:00:00 Completed [facility] Pneumococcal Polysaccharide, PPSV23 (PNEUMOVAX) 2011-05-05 00:00:00 Completed [facility] TDAP 2011-05-05 00:00:00 Completed [facility] Pneumococcal Polysaccharide, PPSV23 (PNEUMOVAX) 2011-05-05 00:00:00 Completed [facility] TDAP 2011-05-05 00:00:00 Completed [facility] Pneumococcal Polysaccharide, PPSV23 (PNEUMOVAX) 2011-05-05 00:00:00 Completed [facility] TDAP 2011-05-05 00:00:00 Completed [facility] Pneumococcal Polysaccharide, PPSV23 (PNEUMOVAX) 2011-05-05 00:00:00 Completed [facility] TDAP 2011-05-05 00:00:00 Completed [facility] Pneumococcal Polysaccharide, PPSV23 (PNEUMOVAX) 2011-05-05 00:00:00 Completed [facility] TDAP 2011-05-05 00:00:00 Completed [facility] Pneumococcal Polysaccharide, PPSV23 (PNEUMOVAX) 2011-05-05 00:00:00 Completed [facility] TDAP 2011-05-05 00:00:00 Completed [facility] Pneumococcal Polysaccharide, PPSV23 (PNEUMOVAX) 2011-05-05 00:00:00 Completed [facility] TDAP 2011-05-05 00:00:00 Completed [facility] Pneumococcal Polysaccharide, PPSV23 (PNEUMOVAX) 2011-05-05 00:00:00 Completed [facility] TDAP 2011-05-05 00:00:00 Completed [facility] Pneumococcal Polysaccharide, PPSV23 (PNEUMOVAX) 2011-05-05 00:00:00 Completed [facility] TDAP 2011-05-05 00:00:00 Completed [facility] Pneumococcal Polysaccharide, PPSV23 (PNEUMOVAX) 2011-05-05 00:00:00 Completed [facility] TDAP 2011-05-05 00:00:00 Completed [facility] Pneumococcal Polysaccharide, PPSV23 (PNEUMOVAX) 2011-05-05 00:00:00 Completed [facility] TDAP 2011-05-05 00:00:00 Completed [facility] Pneumococcal Polysaccharide, PPSV23 (PNEUMOVAX) 2011-05-05 00:00:00 Completed [facility] TDAP 2011-05-05 00:00:00 Completed [facility] Pneumococcal Polysaccharide, PPSV23 (PNEUMOVAX) 2011-05-05 00:00:00 Completed [facility] TDAP 2011-05-05 00:00:00 Completed [facility] Pneumococcal Polysaccharide, PPSV23 (PNEUMOVAX) 2011-05-05 00:00:00 Completed [facility] TDAP 2011-05-05 00:00:00 Completed [facility] Pneumococcal Polysaccharide, PPSV23 (PNEUMOVAX) 2011-05-05 00:00:00 Completed [facility] TDAP 2011-05-05 00:00:00 Completed [facility] Pneumococcal Polysaccharide, PPSV23 (PNEUMOVAX) 2011-05-05 00:00:00 Completed [facility] TDAP 2011-05-05 00:00:00 Completed [facility] Pneumococcal Polysaccharide, PPSV23 (PNEUMOVAX) 2011-05-05 00:00:00 Completed [facility] TDAP 2011-05-05 00:00:00 Completed [facility] Pneumococcal Polysaccharide, PPSV23 (PNEUMOVAX) 2011-05-05 00:00:00 Completed [facility] TDAP 2011-05-05 00:00:00 Completed [facility] Pneumococcal Polysaccharide, PPSV23 (PNEUMOVAX) 2011-05-05 00:00:00 Completed [facility] TDAP 2011-05-05 00:00:00 Completed [facility] Pneumococcal Polysaccharide, PPSV23 (PNEUMOVAX) 2011-05-05 00:00:00 Completed [facility] TDAP 2011-05-05 00:00:00 Completed [facility] Pneumococcal Polysaccharide, PPSV23 (PNEUMOVAX) 2011-05-05 00:00:00 Completed [facility] TDAP 2011-05-05 00:00:00 Completed [facility] Pneumococcal Polysaccharide, PPSV23 (PNEUMOVAX) 2011-05-05 00:00:00 Completed [facility] TDAP 2011-05-05 00:00:00 Completed [facility] Pneumococcal Polysaccharide, PPSV23 (PNEUMOVAX) 2011-05-05 00:00:00 Completed [facility] TDAP 2011-05-05 00:00:00 Completed [facility] Pneumococcal Polysaccharide, PPSV23 (PNEUMOVAX) 2011-05-05 00:00:00 Completed [facility] TDAP 2011-05-05 00:00:00 Completed [facility] Pneumococcal Polysaccharide, PPSV23 (PNEUMOVAX) 2011-05-05 00:00:00 Completed [facility] TDAP 2011-05-05 00:00:00 Completed [facility] Pneumococcal Polysaccharide, PPSV23 (PNEUMOVAX) 2011-05-05 00:00:00 Completed [facility] TDAP 2011-05-05 00:00:00 Completed [facility] Pneumococcal Polysaccharide, PPSV23 (PNEUMOVAX) 2011-05-05 00:00:00 Completed [facility] TDAP 2011-05-05 00:00:00 Completed [facility] Pneumococcal Polysaccharide, PPSV23 (PNEUMOVAX) 2011-05-05 00:00:00 Completed [facility] TDAP 2011-05-05 00:00:00 Completed [facility] Pneumococcal Polysaccharide, PPSV23 (PNEUMOVAX) 2011-05-05 00:00:00 Completed [facility] TDAP 2011-05-05 00:00:00 Completed [facility] Pneumococcal Polysaccharide, PPSV23 (PNEUMOVAX) 2011-05-05 00:00:00 Completed [facility] TDAP 2011-05-05 00:00:00 Completed [facility] Pneumococcal Polysaccharide, PPSV23 (PNEUMOVAX) 2011-05-05 00:00:00 Completed [facility] TDAP 2011-05-05 00:00:00 Completed [facility] Pneumococcal Polysaccharide, PPSV23 (PNEUMOVAX) 2011-05-05 00:00:00 Completed [facility] TDAP 2011-05-05 00:00:00 Completed [facility] Pneumococcal Polysaccharide, PPSV23 (PNEUMOVAX) 2011-05-05 00:00:00 Completed [facility] TDAP 2011-05-05 00:00:00 Completed [facility] Pneumococcal Polysaccharide, PPSV23 (PNEUMOVAX) 2011-05-05 00:00:00 Completed [facility] TDAP 2011-05-05 00:00:00 Completed [facility] Pneumococcal Polysaccharide, PPSV23 (PNEUMOVAX) 2011-05-05 00:00:00 Completed [facility] TDAP 2011-05-05 00:00:00 Completed [facility] Pneumococcal Polysaccharide, PPSV23 (PNEUMOVAX) 2011-05-05 00:00:00 Completed [facility] TDAP 2011-05-05 00:00:00 Completed [facility] Pneumococcal Polysaccharide, PPSV23 (PNEUMOVAX) 2011-05-05 00:00:00 Completed [facility] TDAP 2011-05-05 00:00:00 Completed [facility] Pneumococcal Polysaccharide, PPSV23 (PNEUMOVAX) 2011-05-05 00:00:00 Completed [facility] TDAP 2011-05-05 00:00:00 Completed [facility] Pneumococcal Polysaccharide, PPSV23 (PNEUMOVAX) 2011-05-05 00:00:00 Completed [facility] TDAP 2011-05-05 00:00:00 Completed [facility] Pneumococcal Polysaccharide, PPSV23 (PNEUMOVAX) 2011-05-05 00:00:00 Completed [facility] TDAP 2011-05-05 00:00:00 Completed [facility] Pneumococcal Polysaccharide, PPSV23 (PNEUMOVAX) 2011-05-05 00:00:00 Completed [facility] TDAP 2011-05-05 00:00:00 Completed [facility] Pneumococcal Polysaccharide, PPSV23 (PNEUMOVAX) 2011-05-05 00:00:00 Completed [facility] TDAP 2011-05-05 00:00:00 Completed [facility] Pneumococcal Polysaccharide, PPSV23 (PNEUMOVAX) 2011-05-05 00:00:00 Completed [facility] TDAP 2011-05-05 00:00:00 Completed [facility] Pneumococcal Polysaccharide, PPSV23 (PNEUMOVAX) 2011-05-05 00:00:00 Completed [facility] TDAP 2011-05-05 00:00:00 Completed [facility] Pneumococcal Polysaccharide, PPSV23 (PNEUMOVAX) 2011-05-05 00:00:00 Completed [facility] TDAP 2011-05-05 00:00:00 Completed [facility] Pneumococcal Polysaccharide, PPSV23 (PNEUMOVAX) 2011-05-05 00:00:00 Completed [facility] TDAP 2011-05-05 00:00:00 Completed [facility] Pneumococcal Polysaccharide, PPSV23 (PNEUMOVAX) 2011-05-05 00:00:00 Completed [facility] TDAP 2011-05-05 00:00:00 Completed [facility] Pneumococcal Polysaccharide, PPSV23 (PNEUMOVAX) 2011-05-05 00:00:00 Completed [facility] TDAP 2011-05-05 00:00:00 Completed [facility] Pneumococcal Polysaccharide, PPSV23 (PNEUMOVAX) 2011-05-05 00:00:00 Completed [facility] TDAP 2011-05-05 00:00:00 Completed [facility] Pneumococcal Polysaccharide, PPSV23 (PNEUMOVAX) 2011-05-05 00:00:00 Completed [facility] TDAP 2011-05-05 00:00:00 Completed [facility] Pneumococcal Polysaccharide, PPSV23 (PNEUMOVAX) 2011-05-05 00:00:00 Completed [facility] TDAP 2011-05-05 00:00:00 Completed [facility] Pneumococcal Polysaccharide, PPSV23 (PNEUMOVAX) 2011-05-05 00:00:00 Completed [facility] TDAP 2011-05-05 00:00:00 Completed [facility] Pneumococcal Polysaccharide, PPSV23 (PNEUMOVAX) 2011-05-05 00:00:00 Completed [facility] TDAP 2011-05-05 00:00:00 Completed [facility] Pneumococcal Polysaccharide, PPSV23 (PNEUMOVAX) 2011-05-05 00:00:00 Completed [facility] TDAP 2011-05-05 00:00:00 Completed [facility] Pneumococcal Polysaccharide, PPSV23 (PNEUMOVAX) 2011-05-05 00:00:00 Completed [facility] TDAP 2011-05-05 00:00:00 Completed [facility] Pneumococcal Polysaccharide, PPSV23 (PNEUMOVAX) 2011-05-05 00:00:00 Completed [facility] TDAP 2011-05-05 00:00:00 Completed [facility] Pneumococcal Polysaccharide, PPSV23 (PNEUMOVAX) 2011-05-05 00:00:00 Completed [facility] TDAP 2011-05-05 00:00:00 Completed [facility] Pneumococcal Polysaccharide, PPSV23 (PNEUMOVAX) 2011-05-05 00:00:00 Completed [facility] TDAP 2011-05-05 00:00:00 Completed [facility] Pneumococcal Polysaccharide, PPSV23 (PNEUMOVAX) 2011-05-05 00:00:00 Completed [facility] TDAP 2011-05-05 00:00:00 Completed [facility] Pneumococcal Polysaccharide, PPSV23 (PNEUMOVAX) 2011-05-05 00:00:00 Completed [facility] TDAP 2011-05-05 00:00:00 Completed [facility] Pneumococcal Polysaccharide, PPSV23 (PNEUMOVAX) 2011-05-05 00:00:00 Completed [facility] TDAP 2011-05-05 00:00:00 Completed [facility] Pneumococcal Polysaccharide, PPSV23 (PNEUMOVAX) 2011-05-05 00:00:00 Completed [facility] TDAP 2011-05-05 00:00:00 Completed [facility] Pneumococcal Polysaccharide, PPSV23 (PNEUMOVAX) 2011-05-05 00:00:00 Completed [facility] TDAP 2011-05-05 00:00:00 Completed [facility] Pneumococcal Polysaccharide, PPSV23 (PNEUMOVAX) 2011-05-05 00:00:00 Completed [facility] TDAP 2011-05-05 00:00:00 Completed [facility] Pneumococcal Polysaccharide, PPSV23 (PNEUMOVAX) 2011-05-05 00:00:00 Completed [facility] TDAP 2011-05-05 00:00:00 Completed [facility] Pneumococcal Polysaccharide, PPSV23 (PNEUMOVAX) 2011-05-05 00:00:00 Completed [facility] TDAP 2011-05-05 00:00:00 Completed [facility] Pneumococcal Polysaccharide, PPSV23 (PNEUMOVAX) 2011-05-05 00:00:00 Completed [facility] TDAP 2011-05-05 00:00:00 Completed [facility] Pneumococcal Polysaccharide, PPSV23 (PNEUMOVAX) 2011-05-05 00:00:00 Completed [facility] TDAP 2011-05-05 00:00:00 Completed [facility] Pneumococcal Polysaccharide, PPSV23 (PNEUMOVAX) 2011-05-05 00:00:00 Completed [facility] TDAP 2011-05-05 00:00:00 Completed [facility] Pneumococcal Polysaccharide, PPSV23 (PNEUMOVAX) 2011-05-05 00:00:00 Completed [facility] TDAP 2011-05-05 00:00:00 Completed [facility] Pneumococcal Polysaccharide, PPSV23 (PNEUMOVAX) 2011-05-05 00:00:00 Completed [facility] TDAP 2011-05-05 00:00:00 Completed [facility] Pneumococcal Polysaccharide, PPSV23 (PNEUMOVAX) 2011-05-05 00:00:00 Completed [facility] TDAP 2011-05-05 00:00:00 Completed [facility] Pneumococcal Polysaccharide, PPSV23 (PNEUMOVAX) 2011-05-05 00:00:00 Completed [facility] TDAP 2011-05-05 00:00:00 Completed [facility] Pneumococcal Polysaccharide, PPSV23 (PNEUMOVAX) 2011-05-05 00:00:00 Completed [facility] TDAP 2011-05-05 00:00:00 Completed [facility] Pneumococcal Polysaccharide, PPSV23 (PNEUMOVAX) 2011-05-05 00:00:00 Completed [facility] TDAP 2011-05-05 00:00:00 Completed [facility] Pneumococcal Polysaccharide, PPSV23 (PNEUMOVAX) 2011-05-05 00:00:00 Completed [facility] TDAP 2011-05-05 00:00:00 Completed [facility] Pneumococcal Polysaccharide, PPSV23 (PNEUMOVAX) 2011-05-05 00:00:00 Completed [facility] TDAP 2011-05-05 00:00:00 Completed [facility] Pneumococcal Polysaccharide, PPSV23 (PNEUMOVAX) 2011-05-05 00:00:00 Completed [facility] TDAP 2011-05-05 00:00:00 Completed [facility] Pneumococcal Polysaccharide, PPSV23 (PNEUMOVAX) 2011-05-05 00:00:00 Completed [facility] TDAP 2011-05-05 00:00:00 Completed [facility] Pneumococcal Polysaccharide, PPSV23 (PNEUMOVAX) 2011[facility] Pneumococcal Polysaccharide, PPSV23 (PNEUMOVAX) Unknown Completed [facility] Pneumococcal 13 Conjugate, PCV13 (Prevnar 13) Unknown Completed [facility] TDAP Unknown Completed [facility] Influenza High Dose Unknown Completed [facility] Influenza High Dose Unknown Completed [facility] Pneumococcal Polysaccharide, PPSV23 (PNEUMOVAX) Unknown Completed [facility] Influenza High Dose Unknown Completed [facility] Influenza High Dose Unknown Completed [facility] Influenza Virus Vaccine Unknown Completed [facility] Influenza Virus Vaccine Unknown Completed [facility] Influenza Virus Vaccine Unknown Completed [facility] Pneumococcal Polysaccharide, PPSV23 (PNEUMOVAX) Unknown Completed [facility] Pneumococcal Polysaccharide, PPSV23 (PNEUMOVAX) Unknown Completed [facility] SARS-COV-2 COVID-19 UNSPECIFIED VACCINE Unknown Completed [facility] SARS-COV-2 COVID-19 UNSPECIFIED VACCINE Unknown Completed [facility] Influenza Virus Vaccine Quad IM Multi-dose 6+ MO Unknown Completed [facility] Pneumococcal Polysaccharide, PPSV23 (PNEUMOVAX) Unknown [facility] Influenza Virus Vaccine,quad Im,preserve Free 65+ (FLUAD) Unknown Completed [facility] SARS-COV-2 COVID-19 VACCINE - (MODERNA) Unknown Completed [facility] SARS-COV-2 COVID-19 VACCINE - (MODERNA) Unknown Completed [facility] Pneumococcal Unspecified Unknown Completed [facility] Pneumococcal Unspecified Unknown Completed [facility] Pneumococcal Polysaccharide, PPSV23 (PNEUMOVAX) Unknown Completed [facility] Pneumococcal Polysaccharide, PPSV23 (PNEUMOVAX) Unknown Completed [facility] Pneumococcal 13 Conjugate, PCV13 (Prevnar 13) Unknown Completed [facility] TDAP Unknown Completed [facility] Influenza High Dose Unknown Completed [facility] Influenza High Dose Unknown Completed [facility] Pneumococcal Polysaccharide, PPSV23 (PNEUMOVAX) Unknown Completed [facility] Influenza High Dose Unknown Completed [facility] Influenza High Dose Unknown Completed [facility] Influenza Virus Vaccine Unknown Completed [facility] Influenza Virus Vaccine Unknown Completed [facility] Influenza Virus Vaccine Unknown Completed [facility] Pneumococcal Polysaccharide, PPSV23 (PNEUMOVAX) Unknown Completed [facility] Pneumococcal Polysaccharide, PPSV23 (PNEUMOVAX) Unknown Completed [facility] SARS-COV-2 COVID-19 UNSPECIFIED VACCINE Unknown Completed [facility] SARS-COV-2 COVID-19 UNSPECIFIED VACCINE Unknown Completed [facility] Influenza Virus Vaccine Quad IM Multi-dose 6+ MO Unknown Completed [facility] Pneumococcal Polysaccharide, PPSV23 (PNEUMOVAX) Unknown Completed [facility] Influenza Virus Vaccine,quad Im,preserve Free 65+ (FLUAD) Unknown Completed [facility] SARS-COV-2 COVID-19 VACCINE - (MODERNA) Unknown Completed [facility] SARS-COV-2 COVID-19 VACCINE - (MODERNA) Unknown Completed [facility] Pneumococcal Unspecified Unknown Completed [facility] Pneumococcal Unspecified Unknown Completed [facility] Pneumococcal Polysaccharide, PPSV23 (PNEUMOVAX) Unknown Completed [facility] Pneumococcal Polysaccharide, PPSV23 (PNEUMOVAX) Unknown Completed [facility] Pneumococcal 13 Conjugate, PCV13 (Prevnar 13) Unknown Completed [facility] TDAP Unknown Completed [facility] Influenza High Dose Unknown Completed [facility] Influenza High Dose Unknown Completed [facility] Pneumococcal Polysaccharide, PPSV23 (PNEUMOVAX) Unknown Completed [facility] Influenza High Dose Unknown Completed [facility] Influenza High Dose Unknown Completed [facility] Influenza Virus Vaccine Unknown Completed [facility] Influenza Virus Vaccine Unknown Completed [facility] Influenza Virus Vaccine Unknown Completed [facility] Pneumococcal Polysaccharide, PPSV23 (PNEUMOVAX) Unknown Completed [facility] Pneumococcal Polysaccharide, PPSV23 (PNEUMOVAX) Unknown Completed [facility] SARS-COV-2 COVID-19 UNSPECIFIED VACCINE Unknown Completed [facility] SARS-COV-2 COVID-19 UNSPECIFIED VACCINE Unknown Completed [facility] Influenza Virus Vaccine Quad IM Multi-dose 6+ MO Unknown Completed [facility] Pneumococcal Polysaccharide, PPSV23 (PNEUMOVAX) Unknown Completed [facility] Influenza Virus Vaccine,quad Im,preserve Free 65+ (FLUAD) Unknown Completed [facility] SARS-COV-2 COVID-19 VACCINE - (MODERNA) Unknown Completed [facility] SARS-COV-2 COVID-19 VACCINE - (MODERNA) Unknown Completed [facility] Pneumococcal Unspecified Unknown Completed [facility] Pneumococcal Unspecified Unknown Completed [facility] Pneumococcal Polysaccharide, PPSV23 (PNEUMOVAX) Unknown Completed [facility] Pneumococcal Polysaccharide, PPSV23 (PNEUMOVAX) Unknown Completed [facility] Pneumococcal 13 Conjugate, PCV13 (Prevnar 13) Unknown Completed [facility] TDAP Unknown Completed [facility] Influenza High Dose Unknown Completed [facility] Influenza High Dose Unknown Completed [facility] Pneumococcal Polysaccharide, PPSV23 (PNEUMOVAX) Unknown Completed [facility] Influenza High Dose Unknown Completed [facility] Influenza High Dose Unknown Completed [facility] Influenza Virus Vaccine Unknown Completed [facility] Influenza Virus Vaccine Unknown Completed [facility] Influenza Virus Vaccine Unknown Completed [facility] Pneumococcal Polysaccharide, PPSV23 (PNEUMOVAX) Unknown Completed [facility] Pneumococcal Polysaccharide, PPSV23 (PNEUMOVAX) Unknown Completed [facility] SARS-COV-2 COVID-19 UNSPECIFIED VACCINE Unknown Completed [facility] SARS-COV-2 COVID-19 UNSPECIFIED VACCINE [facility] Multi-dose 6+ MO Unknown Completed [facility] Pneumococcal Polysaccharide, PPSV23 (PNEUMOVAX) Unknown Completed [facility] Influenza Virus Vaccine,quad Im,preserve Free 65+ (FLUAD) Unknown Completed [facility] SARS-COV-2 COVID-19 VACCINE - (MODERNA) Unknown Completed [facility] SARS-COV-2 COVID-19 VACCINE - (MODERNA) Unknown Completed [facility] Pneumococcal Unspecified Unknown Completed [facility] Pneumococcal Unspecified Unknown Completed [facility] Pneumococcal Polysaccharide, PPSV23 (PNEUMOVAX) Unknown Completed [facility] Pneumococcal Polysaccharide, PPSV23 (PNEUMOVAX) Unknown Completed [facility] Pneumococcal 13 Conjugate, PCV13 (Prevnar 13) Unknown Completed [facility] TDAP Unknown Completed [facility] Influenza High Dose Unknown Completed [facility] Influenza High Dose Unknown Completed [facility] Pneumococcal Polysaccharide, PPSV23 (PNEUMOVAX) Unknown Completed [facility] Influenza High Dose Unknown Completed [facility] Influenza High Dose Unknown Completed [facility] Influenza Virus Vaccine Unknown Completed [facility] Influenza Virus Vaccine Unknown Completed [facility] Influenza Virus Vaccine Unknown Completed [facility] Pneumococcal Polysaccharide, PPSV23 (PNEUMOVAX) Unknown Completed [facility] Pneumococcal Polysaccharide, PPSV23 (PNEUMOVAX) Unknown Completed [facility] SARS-COV-2 COVID-19 UNSPECIFIED VACCINE Unknown [facility] UNSPECIFIED VACCINE Unknown Completed [facility] Influenza Virus Vaccine Quad IM Multi-dose 6+ MO Unknown Completed [facility] Pneumococcal Polysaccharide, PPSV23 (PNEUMOVAX) Unknown Completed [facility] Influenza Virus Vaccine,quad Im,preserve Free 65+ (FLUAD) Unknown Completed [facility] SARS-COV-2 COVID-19 VACCINE - (MODERNA) [facility] VACCINE - (MODERNA) Unknown Completed [facility] Pneumococcal Unspecified Unknown Completed [facility] Pneumococcal Unspecified Unknown Completed [facility] Pneumococcal Polysaccharide, PPSV23 (PNEUMOVAX) Unknown Completed [facility] Pneumococcal Polysaccharide, PPSV23 (PNEUMOVAX) Unknown Completed [facility] Pneumococcal 13 Conjugate, PCV13 (Prevnar 13) Unknown Completed [facility] TDAP Unknown Completed [facility] Influenza High Dose Unknown Completed [facility] Influenza High Dose Unknown Completed [facility] Pneumococcal Polysaccharide, PPSV23 (PNEUMOVAX) Unknown Completed [facility] Influenza High Dose Unknown Completed [facility] Influenza High Dose Unknown Completed [facility] Influenza Virus Vaccine Unknown Completed [facility] Influenza Virus Vaccine Unknown Completed [facility] Influenza Virus Vaccine Unknown Completed [facility] Pneumococcal Polysaccharide, PPSV23 (PNEUMOVAX) Unknown Completed [facility] Pneumococcal Polysaccharide, PPSV23 (PNEUMOVAX) Unknown Completed [facility] SARS-COV-2 COVID-19 UNSPECIFIED VACCINE Unknown Completed [facility] SARS-COV-2 COVID-19 UNSPECIFIED VACCINE Unknown Completed [facility] Influenza Virus Vaccine Quad IM Multi-dose 6+ MO Unknown Completed [facility] Pneumococcal Polysaccharide, PPSV23 (PNEUMOVAX) Unknown Completed [facility] Influenza Virus Vaccine,quad Im,preserve Free 65+ (FLUAD) Unknown Completed [facility] SARS-COV-2 COVID-19 VACCINE - (MODERNA) Unknown Completed [facility] SARS-COV-2 COVID-19 VACCINE - (MODERNA) Unknown Completed [facility] Pneumococcal Unspecified Unknown Completed [facility] Pneumococcal Unspecified Unknown Completed [facility] Pneumococcal Polysaccharide, PPSV23 (PNEUMOVAX) Unknown Completed [facility] Pneumococcal Polysaccharide, PPSV23 (PNEUMOVAX) Unknown Completed [facility] Pneumococcal 13 Conjugate, PCV13 (Prevnar 13) Unknown Completed [facility] TDAP Unknown Completed [facility] Influenza High Dose Unknown Completed [facility] Influenza High Dose Unknown Completed [facility] Pneumococcal Polysaccharide, PPSV23 (PNEUMOVAX) Unknown Completed [facility] Influenza High Dose Unknown Completed [facility] Influenza High Dose Unknown Completed [facility] Influenza Virus Vaccine Unknown Completed [facility] Influenza Virus Vaccine Unknown Completed [facility] Influenza Virus Vaccine Unknown Completed [facility] Pneumococcal Polysaccharide, PPSV23 (PNEUMOVAX) Unknown Completed [facility] Pneumococcal Polysaccharide, PPSV23 (PNEUMOVAX) Unknown Completed [facility] SARS-COV-2 COVID-19 UNSPECIFIED VACCINE Unknown Completed [facility] SARS-COV-2 COVID-19 UNSPECIFIED VACCINE Unknown Completed [facility] Influenza Virus Vaccine Quad IM Multi-dose 6+ MO Unknown Completed [facility] Pneumococcal Polysaccharide, PPSV23 (PNEUMOVAX) Unknown Completed [facility] Influenza Virus Vaccine,quad Im,preserve Free 65+ (FLUAD) Unknown Completed [facility] SARS-COV-2 COVID-19 VACCINE - (MODERNA) [facility] VACCINE - (MODERNA) Unknown Completed [facility] Pneumococcal Unspecified Unknown Completed [facility] Pneumococcal Unspecified Unknown Completed [facility] Pneumococcal Polysaccharide, PPSV23 (PNEUMOVAX) Unknown Completed [facility] Pneumococcal Polysaccharide, PPSV23 (PNEUMOVAX) Unknown Completed [facility] Pneumococcal 13 Conjugate, PCV13 (Prevnar 13) Unknown Completed [facility] TDAP Unknown Completed [facility] Influenza High Dose Unknown Completed [facility] Influenza High Dose Unknown Completed [facility] Pneumococcal Polysaccharide, PPSV23 (PNEUMOVAX) Unknown Completed [facility] Influenza High Dose Unknown Completed [facility] Influenza High Dose Unknown Completed [facility] Influenza Virus Vaccine Unknown Completed [facility] Influenza Virus Vaccine Unknown Completed [facility] Influenza Virus Vaccine Unknown Completed [facility] Pneumococcal Polysaccharide, PPSV23 (PNEUMOVAX) Unknown Completed [facility] Pneumococcal Polysaccharide, PPSV23 (PNEUMOVAX) Unknown Completed [facility] SARS-COV-2 COVID-19 UNSPECIFIED VACCINE Unknown Completed [facility] SARS-COV-2 COVID-19 UNSPECIFIED VACCINE Unknown [facility] Quad IM Multi-dose 6+ MO Unknown Completed [facility] Pneumococcal Polysaccharide, PPSV23 (PNEUMOVAX) Unknown Completed [facility] Influenza Virus Vaccine,quad Im,preserve Free 65+ (FLUAD) Unknown Completed [facility] SARS-COV-2 COVID-19 VACCINE - (MODERNA) Unknown Completed [facility] SARS-COV-2 COVID-19 VACCINE - (MODERNA) Unknown Completed [facility] Pneumococcal Unspecified Unknown Completed [facility] Pneumococcal Unspecified Unknown Completed [facility] Pneumococcal Polysaccharide, PPSV23 (PNEUMOVAX) Unknown Completed [facility] Pneumococcal Polysaccharide, PPSV23 (PNEUMOVAX) Unknown Completed [facility] Pneumococcal 13 Conjugate, PCV13 (Prevnar 13) Unknown Completed [facility] TDAP Unknown Completed [facility] Influenza High Dose Unknown Completed [facility] Influenza High Dose Unknown Completed [facility] Pneumococcal Polysaccharide, PPSV23 (PNEUMOVAX) Unknown Completed [facility] Influenza High Dose Unknown Completed [facility] Influenza High Dose Unknown Completed [facility] Influenza Virus Vaccine Unknown Completed [facility] Influenza Virus Vaccine Unknown Completed [facility] Influenza Virus Vaccine Unknown Completed [facility] Pneumococcal Polysaccharide, PPSV23 (PNEUMOVAX) Unknown Completed [facility] Pneumococcal Polysaccharide, PPSV23 (PNEUMOVAX) Unknown Completed [facility] SARS-COV-2 COVID-19 UNSPECIFIED VACCINE Unknown Completed [facility] SARS-COV-2 COVID-19 UNSPECIFIED VACCINE Unknown Completed [facility] Influenza Virus Vaccine Quad IM Multi-dose 6+ MO Unknown Completed [facility] Pneumococcal Polysaccharide, PPSV23 (PNEUMOVAX) Unknown Completed [facility] Influenza Virus Vaccine,quad Im,preserve Free 65+ (FLUAD) Unknown Completed [facility] SARS-COV-2 COVID-19 VACCINE - (MODERNA) Unknown Completed [facility] SARS-COV-2 COVID-19 VACCINE - (MODERNA) Unknown Completed [facility] Pneumococcal Unspecified Unknown Completed [facility] Pneumococcal Unspecified Unknown Completed [facility] Pneumococcal Polysaccharide, PPSV23 (PNEUMOVAX) Unknown Completed [facility] Pneumococcal Polysaccharide, PPSV23 (PNEUMOVAX) Unknown Completed [facility] Pneumococcal 13 Conjugate, PCV13 (Prevnar 13) Unknown Completed [facility] TDAP Unknown Completed [facility] Influenza High Dose Unknown Completed [facility] Influenza High Dose Unknown Completed [facility] Pneumococcal Polysaccharide, PPSV23 (PNEUMOVAX) Unknown Completed [facility] Influenza High Dose Unknown Completed [facility] Influenza High Dose Unknown Completed [facility] Influenza Virus Vaccine Unknown Completed [facility] Influenza Virus Vaccine Unknown Completed [facility] Influenza Virus Vaccine Unknown Completed [facility] Pneumococcal Polysaccharide, PPSV23 (PNEUMOVAX) Unknown Completed [facility] Pneumococcal Polysaccharide, PPSV23 (PNEUMOVAX) Unknown Completed [facility] SARS-COV-2 COVID-19 UNSPECIFIED VACCINE Unknown Completed [facility] SARS-COV-2 COVID-19 UNSPECIFIED VACCINE Unknown Completed [facility] Influenza Virus Vaccine Quad IM Multi-dose 6+ MO Unknown Completed [facility] Pneumococcal Polysaccharide, PPSV23 (PNEUMOVAX) Unknown Completed [facility] Influenza Virus Vaccine,quad Im,preserve Free 65+ (FLUAD) Unknown Completed [facility] SARS-COV-2 COVID-19 VACCINE - (MODERNA) Unknown Completed [facility] SARS-COV-2 COVID-19 VACCINE - (MODERNA) Unknown Completed [facility] Pneumococcal Unspecified Unknown Completed [facility] Pneumococcal Unspecified Unknown Completed [facility] TDAP Unknown Completed [facility] Pneumococcal Polysaccharide, PPSV23 (PNEUMOVAX) Unknown Completed [facility] Pneumococcal Polysaccharide, PPSV23 (PNEUMOVAX) Unknown Completed [facility] Pneumococcal 13 Conjugate, PCV13 (Prevnar 13) Unknown Completed [facility] TDAP Unknown Completed [facility] Influenza High Dose Unknown Completed [facility] Influenza High Dose Unknown Completed [facility] Pneumococcal Polysaccharide, PPSV23 (PNEUMOVAX) Unknown Completed [facility] Influenza High Dose Unknown Completed [facility] Influenza High Dose Unknown Completed [facility] Influenza Virus Vaccine Unknown Completed [facility] Influenza Virus Vaccine Unknown Completed [facility] Influenza Virus Vaccine Unknown Completed [facility] Pneumococcal Polysaccharide, PPSV23 (PNEUMOVAX) Unknown Completed [facility] Pneumococcal Polysaccharide, PPSV23 (PNEUMOVAX) Unknown Completed [facility] SARS-COV-2 COVID-19 UNSPECIFIED VACCINE Unknown Completed [facility] SARS-COV-2 COVID-19 UNSPECIFIED VACCINE Unknown Completed [facility] Influenza Virus Vaccine Quad IM Multi-dose 6+ MO Unknown Completed [facility] Pneumococcal Polysaccharide, PPSV23 (PNEUMOVAX) Unknown Completed [facility] Influenza Virus Vaccine,quad Im,preserve Free 65+ (FLUAD) Unknown Completed [facility] SARS-COV-2 COVID-19 VACCINE - (MODERNA) Unknown Completed [facility] SARS-COV-2 COVID-19 VACCINE - (MODERNA) Unknown Completed [facility] Pneumococcal Unspecified Unknown Completed [facility] Pneumococcal Unspecified Unknown Completed [facility] TDAP Unknown Completed [facility] Pneumococcal Polysaccharide, PPSV23 (PNEUMOVAX) Unknown Completed [facility] Pneumococcal Polysaccharide, PPSV23 (PNEUMOVAX) Unknown Completed [facility] Pneumococcal 13 Conjugate, PCV13 (Prevnar 13) Unknown Completed [facility] TDAP Unknown Completed [facility] Influenza High Dose Unknown Completed [facility] Influenza High Dose Unknown Completed [facility] Pneumococcal Polysaccharide, PPSV23 (PNEUMOVAX) Unknown Completed [facility] Influenza High Dose Unknown Completed [facility] Influenza High Dose Unknown Completed [facility] Influenza Virus Vaccine Unknown Completed [facility] Influenza Virus Vaccine Unknown Completed [facility] Influenza Virus Vaccine Unknown Completed [facility] Pneumococcal Polysaccharide, PPSV23 (PNEUMOVAX) Unknown Completed [facility] Pneumococcal Polysaccharide, PPSV23 (PNEUMOVAX) Unknown Completed [facility] SARS-COV-2 COVID-19 UNSPECIFIED VACCINE Unknown Completed [facility] SARS-COV-2 COVID-19 UNSPECIFIED VACCINE Unknown Completed [facility] Influenza Virus Vaccine Quad IM Multi-dose 6+ MO Unknown Completed [facility] Pneumococcal Polysaccharide, PPSV23 (PNEUMOVAX) Unknown Completed [facility] Influenza Virus Vaccine,quad Im,preserve Free 65+ (FLUAD) Unknown Completed [facility] SARS-COV-2 COVID-19 VACCINE - (MODERNA) Unknown Completed [facility] SARS-COV-2 COVID-19 VACCINE - (MODERNA) Unknown Completed [facility] Pneumococcal Unspecified Unknown Completed [facility] Pneumococcal Unspecified Unknown Completed [facility] TDAP Unknown Completed [facility] Pneumococcal Polysaccharide, PPSV23 (PNEUMOVAX) Unknown Completed [facility] Pneumococcal Polysaccharide, PPSV23 (PNEUMOVAX) Unknown Completed [facility] Pneumococcal 13 Conjugate, PCV13 (Prevnar 13) Unknown Completed [facility] TDAP Unknown Completed [facility] Influenza High Dose Unknown Completed [facility] Influenza High Dose Unknown Completed [facility] Pneumococcal Polysaccharide, PPSV23 (PNEUMOVAX) Unknown Completed [facility] Influenza High Dose Unknown Completed [facility] Influenza High Dose Unknown Completed [facility] Influenza Virus Vaccine Unknown Completed [facility] Influenza Virus Vaccine Unknown Completed [facility] Influenza Virus Vaccine Unknown Completed [facility] Pneumococcal Polysaccharide, PPSV23 (PNEUMOVAX) Unknown Completed [facility] Pneumococcal Polysaccharide, PPSV23 (PNEUMOVAX) Unknown Completed [facility] SARS-COV-2 COVID-19 UNSPECIFIED VACCINE Unknown Completed [facility] SARS-COV-2 COVID-19 UNSPECIFIED VACCINE Unknown Completed [facility] Influenza Virus Vaccine Quad IM Multi-dose 6+ MO Unknown Completed [facility] Pneumococcal Polysaccharide, PPSV23 (PNEUMOVAX) Unknown Completed [facility] Influenza Virus Vaccine,quad Im,preserve Free 65+ (FLUAD) Unknown Completed [facility] SARS-COV-2 COVID-19 VACCINE - (MODERNA) Unknown Completed [facility] SARS-COV-2 COVID-19 VACCINE - (MODERNA) Unknown Completed [facility] Pneumococcal Unspecified Unknown Completed [facility] Pneumococcal Unspecified Unknown Completed [facility] TDAP Unknown Completed [facility] Pneumococcal Polysaccharide, PPSV23 (PNEUMOVAX) Unknown Completed [facility] Pneumococcal Polysaccharide, PPSV23 (PNEUMOVAX) Unknown Completed [facility] Pneumococcal 13 Conjugate, PCV13 (Prevnar 13) Unknown Completed [facility] TDAP Unknown Completed [facility] Influenza High Dose Unknown Completed [facility] Influenza High Dose Unknown Completed [facility] Pneumococcal Polysaccharide, PPSV23 (PNEUMOVAX) Unknown Completed [facility] Influenza High Dose Unknown Completed [facility] Influenza High Dose Unknown Completed [facility] Influenza Virus Vaccine Unknown Completed [facility] Influenza Virus Vaccine Unknown Completed [facility] Influenza Virus Vaccine Unknown Completed [facility] Pneumococcal Polysaccharide, PPSV23 (PNEUMOVAX) Unknown Completed [facility] Pneumococcal Polysaccharide, PPSV23 (PNEUMOVAX) Unknown Completed [facility] SARS-COV-2 COVID-19 UNSPECIFIED VACCINE Unknown Completed [facility] SARS-COV-2 COVID-19 UNSPECIFIED VACCINE Unknown Completed [facility] Influenza Virus Vaccine Quad IM Multi-dose 6+ MO Unknown Completed [facility] Pneumococcal Polysaccharide, PPSV23 (PNEUMOVAX) Unknown Completed [facility] Influenza Virus Vaccine,quad Im,preserve Free 65+ (FLUAD) Unknown Completed [facility] SARS-COV-2 COVID-19 VACCINE - (MODERNA) Unknown Completed [facility] SARS-COV-2 COVID-19 VACCINE - (MODERNA) Unknown Completed [facility] Pneumococcal Unspecified Unknown Completed [facility] Pneumococcal Unspecified Unknown Completed [facility] TDAP Unknown Completed [facility] Pneumococcal Polysaccharide, PPSV23 (PNEUMOVAX) Unknown Completed [facility] Pneumococcal Polysaccharide, PPSV23 (PNEUMOVAX) Unknown Completed [facility] Pneumococcal 13 Conjugate, PCV13 (Prevnar 13) Unknown Completed [facility] TDAP Unknown Completed [facility] Influenza High Dose Unknown Completed [facility] Influenza High Dose Unknown Completed [facility] Pneumococcal Polysaccharide, PPSV23 (PNEUMOVAX) Unknown Completed [facility] Influenza High Dose Unknown Completed [facility] Influenza High Dose Unknown Completed [facility] Influenza Virus Vaccine Unknown Completed [facility] Influenza Virus Vaccine Unknown Completed [facility] Influenza Virus Vaccine Unknown Completed [facility] Pneumococcal Polysaccharide, PPSV23 (PNEUMOVAX) Unknown Completed [facility] Pneumococcal Polysaccharide, PPSV23 (PNEUMOVAX) Unknown Completed [facility] SARS-COV-2 COVID-19 UNSPECIFIED VACCINE Unknown Completed [facility] SARS-COV-2 COVID-19 UNSPECIFIED VACCINE Unknown Completed [facility] Influenza Virus Vaccine Quad IM Multi-dose 6+ MO Unknown Completed [facility] Pneumococcal Polysaccharide, PPSV23 (PNEUMOVAX) Unknown Completed [facility] Influenza Virus Vaccine,quad Im,preserve Free 65+ (FLUAD) Unknown Completed [facility] SARS-COV-2 COVID-19 VACCINE - (MODERNA) Unknown Completed [facility] SARS-COV-2 COVID-19 VACCINE - (MODERNA) Unknown Completed [facility] Pneumococcal Unspecified Unknown Completed [facility] Pneumococcal Unspecified Unknown Completed [facility] Pneumococcal Polysaccharide, PPSV23 (PNEUMOVAX) Unknown Completed [facility] Pneumococcal Polysaccharide, PPSV23 (PNEUMOVAX) Unknown Completed [facility] Pneumococcal 13 Conjugate, PCV13 (Prevnar 13) Unknown Completed [facility] TDAP Unknown Completed [facility] Influenza High Dose Unknown Completed [facility] Influenza High Dose Unknown Completed [facility] Pneumococcal Polysaccharide, PPSV23 (PNEUMOVAX) Unknown Completed [facility] Influenza High Dose Unknown Completed [facility] Influenza High Dose Unknown Completed [facility] Influenza Virus Vaccine Unknown Completed [facility] Influenza Virus Vaccine Unknown Completed [facility] Influenza Virus Vaccine Unknown Completed [facility] Pneumococcal Polysaccharide, PPSV23 (PNEUMOVAX) Unknown Completed [facility] Pneumococcal Polysaccharide, PPSV23 (PNEUMOVAX) Unknown Completed [facility] SARS-COV-2 COVID-19 UNSPECIFIED VACCINE Unknown Completed [facility] SARS-COV-2 COVID-19 UNSPECIFIED VACCINE Unknown Completed [facility] Influenza Virus Vaccine Quad IM Multi-dose 6+ MO Unknown Completed [facility] Pneumococcal Polysaccharide, PPSV23 (PNEUMOVAX) Unknown Completed [facility] Influenza Virus Vaccine,quad Im,preserve Free 65+ (FLUAD) Unknown Completed [facility] SARS-COV-2 COVID-19 VACCINE - (MODERNA) Unknown Completed [facility] SARS-COV-2 COVID-19 VACCINE - (MODERNA) Unknown Completed [facility] Pneumococcal Unspecified Unknown Completed [facility] Pneumococcal Unspecified Unknown Completed [facility] Pneumococcal Polysaccharide, PPSV23 (PNEUMOVAX) Unknown Completed [facility] Pneumococcal Polysaccharide, PPSV23 (PNEUMOVAX) Unknown Completed [facility] Pneumococcal 13 Conjugate, PCV13 (Prevnar 13) Unknown Completed [facility] TDAP Unknown Completed [facility] Influenza High Dose Unknown Completed [facility] Influenza High Dose Unknown Completed [facility] Pneumococcal Polysaccharide, PPSV23 (PNEUMOVAX) Unknown Completed [facility] Influenza High Dose Unknown Completed [facility] Influenza High Dose Unknown Completed [facility] Influenza Virus Vaccine Unknown Completed [facility] Influenza Virus Vaccine Unknown Completed [facility] Influenza Virus Vaccine Unknown Completed [facility] Pneumococcal Polysaccharide, PPSV23 (PNEUMOVAX) Unknown Completed [facility] Pneumococcal Polysaccharide, PPSV23 (PNEUMOVAX) Unknown Completed [facility] SARS-COV-2 COVID-19 UNSPECIFIED VACCINE Unknown Completed [facility] SARS-COV-2 COVID-19 UNSPECIFIED VACCINE Unknown Completed [facility] Influenza Virus Vaccine Quad IM Multi-dose 6+ MO Unknown Completed [facility] Pneumococcal Polysaccharide, PPSV23 (PNEUMOVAX) Unknown Completed [facility] Influenza Virus Vaccine,quad Im,preserve Free 65+ (FLUAD) Unknown Completed [facility] SARS-COV-2 COVID-19 VACCINE - (MODERNA) Unknown Completed [facility] SARS-COV-2 COVID-19 VACCINE - (MODERNA) Unknown Completed [facility] Pneumococcal Unspecified Unknown Completed [facility] Pneumococcal Unspecified Unknown Completed [facility] TDAP Unknown Completed [facility] Pneumococcal Polysaccharide, PPSV23 (PNEUMOVAX) Unknown Completed [facility] Pneumococcal Polysaccharide, PPSV23 (PNEUMOVAX) Unknown Completed [facility] Pneumococcal 13 Conjugate, PCV13 (Prevnar 13) Unknown Completed [facility] TDAP Unknown Completed [facility] Influenza High Dose Unknown Completed [facility] Influenza High Dose Unknown Completed [facility] Pneumococcal Polysaccharide, PPSV23 (PNEUMOVAX) Unknown Completed [facility] Influenza High Dose Unknown Completed [facility] Influenza High Dose Unknown Completed [facility] Influenza Virus Vaccine Unknown Completed [facility] Influenza Virus Vaccine Unknown Completed [facility] Influenza Virus Vaccine Unknown Completed [facility] Pneumococcal Polysaccharide, PPSV23 (PNEUMOVAX) Unknown Completed [facility] Pneumococcal Polysaccharide, PPSV23 (PNEUMOVAX) Unknown Completed [facility] SARS-COV-2 COVID-19 UNSPECIFIED VACCINE Unknown Completed [facility] SARS-COV-2 COVID-19 UNSPECIFIED VACCINE Unknown Completed [facility] Influenza Virus Vaccine Quad IM Multi-dose 6+ MO Unknown Completed [facility] Pneumococcal Polysaccharide, PPSV23 (PNEUMOVAX) Unknown Completed [facility] Influenza Virus Vaccine,quad Im,preserve Free 65+ (FLUAD) Unknown Completed [facility] SARS-COV-2 COVID-19 VACCINE - (MODERNA) Unknown Completed [facility] SARS-COV-2 COVID-19 VACCINE - (MODERNA) Unknown Completed [facility] Pneumococcal Unspecified Unknown Completed [facility] Pneumococcal Unspecified Unknown Completed [facility] TDAP Unknown Completed [facility] Pneumococcal Polysaccharide, PPSV23 (PNEUMOVAX) Unknown Completed [facility] Pneumococcal Polysaccharide, PPSV23 (PNEUMOVAX) Unknown Completed [facility] Pneumococcal 13 Conjugate, PCV13 (Prevnar 13) Unknown Completed [facility] TDAP Unknown Completed [facility] Influenza High Dose Unknown Completed [facility] Influenza High Dose Unknown Completed [facility] Pneumococcal Polysaccharide, PPSV23 (PNEUMOVAX) Unknown Completed [facility] Influenza High Dose Unknown Completed [facility] Influenza High Dose Unknown Completed [facility] Influenza Virus Vaccine Unknown Completed [facility] Influenza Virus Vaccine Unknown Completed [facility] Influenza Virus Vaccine Unknown Completed [facility] Pneumococcal Polysaccharide, PPSV23 (PNEUMOVAX) Unknown Completed [facility] Pneumococcal Polysaccharide, PPSV23 (PNEUMOVAX) Unknown Completed [facility] SARS-COV-2 COVID-19 UNSPECIFIED VACCINE Unknown Completed [facility] SARS-COV-2 COVID-19 UNSPECIFIED VACCINE Unknown Completed [facility] Influenza Virus Vaccine Quad IM Multi-dose 6+ MO Unknown Completed [facility] Pneumococcal Polysaccharide, PPSV23 (PNEUMOVAX) Unknown Completed [facility] Influenza Virus Vaccine,quad Im,preserve Free 65+ (FLUAD) Unknown Completed [facility] SARS-COV-2 COVID-19 VACCINE - (MODERNA) Unknown Completed [facility] SARS-COV-2 COVID-19 VACCINE - (MODERNA) Unknown Completed [facility] Pneumococcal Unspecified Unknown Completed [facility] Pneumococcal Unspecified Unknown Completed [facility] TDAP Unknown Completed [facility] Pneumococcal Polysaccharide, PPSV23 (PNEUMOVAX) Unknown Completed [facility] Pneumococcal Polysaccharide, PPSV23 (PNEUMOVAX) Unknown Completed [facility] Pneumococcal 13 Conjugate, PCV13 (Prevnar 13) Unknown Completed [facility] TDAP Unknown Completed [facility] Influenza High Dose Unknown Completed [facility] Influenza High Dose Unknown Completed [facility] Pneumococcal Polysaccharide, PPSV23 (PNEUMOVAX) Unknown Completed [facility] Influenza High Dose Unknown Completed [facility] Influenza High Dose Unknown Completed [facility] Influenza Virus Vaccine Unknown Completed [facility] [facility] Influenza Virus Vaccine Unknown Completed [facility] Influenza Virus Vaccine Unknown Completed [facility] Pneumococcal Polysaccharide, PPSV23 (PNEUMOVAX) Unknown Completed [facility] Pneumococcal Polysaccharide, PPSV23 (PNEUMOVAX) Unknown Completed [facility] SARS-COV-2 COVID-19 UNSPECIFIED VACCINE Unknown Completed [facility] SARS-COV-2 COVID-19 UNSPECIFIED VACCINE Unknown Completed [facility] Influenza Virus Vaccine Quad IM Multi-dose 6+ MO Unknown Completed [facility] Pneumococcal Polysaccharide, PPSV23 (PNEUMOVAX) Unknown Completed [facility] Influenza Virus Vaccine,quad Im,preserve Free 65+ (FLUAD) Unknown Completed [facility] SARS-COV-2 COVID-19 VACCINE - (MODERNA) Unknown Completed [facility] SARS-COV-2 COVID-19 VACCINE - (MODERNA) Unknown Completed [facility] Pneumococcal Unspecified Unknown Completed [facility] Pneumococcal Unspecified Unknown Completed [facility] TDAP Unknown Completed [facility] Pneumococcal Polysaccharide, PPSV23 (PNEUMOVAX) Unknown Completed [facility] Pneumococcal Polysaccharide, PPSV23 (PNEUMOVAX) Unknown Completed [facility] Pneumococcal 13 Conjugate, PCV13 (Prevnar 13) Unknown Completed [facility] TDAP Unknown Completed [facility] Influenza High Dose Unknown Completed [facility] Influenza High Dose Unknown Completed [facility] Pneumococcal Polysaccharide, PPSV23 (PNEUMOVAX) Unknown Completed [facility] Influenza High Dose Unknown Completed [facility] Influenza High Dose Unknown Completed [facility] Influenza Virus Vaccine Unknown Completed [facility] Influenza Virus Vaccine Unknown Completed [facility] Influenza Virus Vaccine Unknown Completed [facility] Pneumococcal Polysaccharide, PPSV23 (PNEUMOVAX) Unknown Completed [facility] Pneumococcal Polysaccharide, PPSV23 (PNEUMOVAX) Unknown Completed [facility] SARS-COV-2 COVID-19 UNSPECIFIED VACCINE Unknown Completed [facility] SARS-COV-2 COVID-19 UNSPECIFIED VACCINE Unknown Completed [facility] Influenza Virus Vaccine Quad IM Multi-dose 6+ MO Unknown Completed [facility] Pneumococcal Polysaccharide, PPSV23 (PNEUMOVAX) Unknown Completed [facility] Influenza Virus Vaccine,quad Im,preserve Free 65+ (FLUAD) Unknown Completed [facility] SARS-COV-2 COVID-19 VACCINE - (MODERNA) Unknown Completed [facility] SARS-COV-2 COVID-19 VACCINE - (MODERNA) Unknown Completed [facility] Pneumococcal Unspecified Unknown Completed [facility] Pneumococcal Unspecified Unknown Completed [facility] TDAP Unknown Completed [facility] Pneumococcal Polysaccharide, PPSV23 (PNEUMOVAX) Unknown Completed [facility] Pneumococcal Polysaccharide, PPSV23 (PNEUMOVAX) Unknown Completed [facility] Pneumococcal 13 Conjugate, PCV13 (Prevnar 13) Unknown Completed [facility] TDAP Unknown Completed [facility] Influenza High Dose Unknown Completed [facility] Influenza High Dose Unknown Completed [facility] Pneumococcal Polysaccharide, PPSV23 (PNEUMOVAX) Unknown Completed [facility] Influenza High Dose Unknown Completed [facility] Influenza High Dose Unknown Completed [facility] Influenza Virus Vaccine Unknown Completed [facility] Influenza Virus Vaccine Unknown Completed [facility] Influenza Virus Vaccine Unknown Completed [facility] Pneumococcal Polysaccharide, PPSV23 (PNEUMOVAX) Unknown Completed [facility] Pneumococcal Polysaccharide, PPSV23 (PNEUMOVAX) Unknown Completed [facility] SARS-COV-2 COVID-19 UNSPECIFIED VACCINE Unknown Completed [facility] SARS-COV-2 COVID-19 UNSPECIFIED VACCINE Unknown Completed [facility] Influenza Virus Vaccine Quad IM Multi-dose 6+ MO Unknown Completed [facility] Pneumococcal Polysaccharide, PPSV23 (PNEUMOVAX) Unknown Completed [facility] Influenza Virus Vaccine,quad Im,preserve Free 65+ (FLUAD) Unknown Completed [facility] SARS-COV-2 COVID-19 VACCINE - (MODERNA) Unknown Completed [facility] SARS-COV-2 COVID-19 VACCINE - (MODERNA) Unknown Completed [facility] Pneumococcal Unspecified Unknown Completed [facility] Pneumococcal Unspecified Unknown Completed [facility] TDAP Unknown Completed [facility] Pneumococcal Polysaccharide, PPSV23 (PNEUMOVAX) Unknown Completed [facility] Pneumococcal Polysaccharide, PPSV23 (PNEUMOVAX) Unknown Completed [facility] Pneumococcal 13 Conjugate, PCV13 (Prevnar 13) Unknown Completed [facility] TDAP Unknown Completed [facility] Influenza High Dose Unknown Completed [facility] Influenza High Dose Unknown Completed [facility] Pneumococcal Polysaccharide, PPSV23 (PNEUMOVAX) Unknown Completed [facility] Influenza High Dose Unknown Completed [facility] Influenza High Dose Unknown Completed [facility] Influenza Virus Vaccine Unknown Completed [facility] Influenza Virus Vaccine Unknown Completed [facility] Influenza Virus Vaccine Unknown Completed [facility] Pneumococcal Polysaccharide, PPSV23 (PNEUMOVAX) Unknown Completed [facility] Pneumococcal Polysaccharide, PPSV23 (PNEUMOVAX) Unknown Completed [facility] SARS-COV-2 COVID-19 UNSPECIFIED VACCINE Unknown Completed [facility] SARS-COV-2 COVID-19 UNSPECIFIED VACCINE Unknown Completed [facility] Influenza Virus Vaccine Quad IM Multi-dose 6+ MO Unknown Completed [facility] Pneumococcal Polysaccharide, PPSV23 (PNEUMOVAX) Unknown Completed [facility] Influenza Virus Vaccine,quad Im,preserve Free 65+ (FLUAD) Unknown Completed [facility] SARS-COV-2 COVID-19 VACCINE - (MODERNA) Unknown Completed [facility] SARS-COV-2 COVID-19 VACCINE - (MODERNA) Unknown Completed [facility] Pneumococcal Unspecified Unknown Completed [facility] Pneumococcal Unspecified Unknown Completed [facility] TDAP Unknown Completed [facility] Pneumococcal Polysaccharide, PPSV23 (PNEUMOVAX) Unknown Completed [facility] Pneumococcal Polysaccharide, PPSV23 (PNEUMOVAX) Unknown Completed [facility] Pneumococcal 13 Conjugate, PCV13 (Prevnar 13) Unknown Completed [facility] TDAP Unknown Completed [facility] Influenza High Dose Unknown Completed [facility] Influenza High Dose Unknown Completed [facility] Pneumococcal Polysaccharide, PPSV23 (PNEUMOVAX) Unknown Completed [facility] Influenza High Dose Unknown Completed [facility] Influenza High Dose Unknown Completed [facility] Influenza Virus Vaccine Unknown Completed [facility] Influenza Virus Vaccine Unknown Completed [facility] Influenza Virus Vaccine Unknown Completed [facility] Pneumococcal Polysaccharide, PPSV23 (PNEUMOVAX) Unknown Completed [facility] Pneumococcal Polysaccharide, PPSV23 (PNEUMOVAX) Unknown Completed [facility] SARS-COV-2 COVID-19 UNSPECIFIED VACCINE Unknown Completed [facility] SARS-COV-2 COVID-19 UNSPECIFIED VACCINE Unknown Completed [facility] Influenza Virus Vaccine Quad IM Multi-dose 6+ MO Unknown Completed [facility] Pneumococcal Polysaccharide, PPSV23 (PNEUMOVAX) Unknown Completed [facility] Influenza Virus Vaccine,quad Im,preserve Free 65+ (FLUAD) Unknown Completed [facility] SARS-COV-2 COVID-19 VACCINE - (MODERNA) Unknown Completed [facility] SARS-COV-2 COVID-19 VACCINE - (MODERNA) Unknown Completed [facility] Pneumococcal Unspecified Unknown Completed [facility] Pneumococcal Unspecified Unknown Completed [facility] TDAP Unknown Completed [facility] Pneumococcal Polysaccharide, PPSV23 (PNEUMOVAX) Unknown Completed [facility] Pneumococcal Polysaccharide, PPSV23 (PNEUMOVAX) Unknown Completed [facility] Pneumococcal 13 Conjugate, PCV13 (Prevnar 13) Unknown Completed [facility] TDAP Unknown Completed [facility] Influenza High Dose Unknown Completed [facility] Influenza High Dose Unknown Completed [facility] Pneumococcal Polysaccharide, PPSV23 (PNEUMOVAX) Unknown Completed [facility] Influenza High Dose Unknown Completed [facility] Influenza High Dose Unknown Completed [facility] Influenza Virus Vaccine Unknown Completed [facility] Influenza Virus Vaccine Unknown Completed [facility] Influenza Virus Vaccine Unknown Completed [facility] Pneumococcal Polysaccharide, PPSV23 (PNEUMOVAX) Unknown Completed [facility] Pneumococcal Polysaccharide, PPSV23 (PNEUMOVAX) Unknown Completed [facility] SARS-COV-2 COVID-19 UNSPECIFIED VACCINE Unknown Completed [facility] SARS-COV-2 COVID-19 UNSPECIFIED VACCINE Unknown Completed [facility] Influenza Virus Vaccine Quad IM Multi-dose 6+ MO Unknown Completed [facility] Pneumococcal Polysaccharide, PPSV23 (PNEUMOVAX) Unknown Completed [facility] Influenza Virus Vaccine,quad Im,preserve Free 65+ (FLUAD) Unknown Completed [facility] SARS-COV-2 COVID-19 VACCINE - (MODERNA) Unknown Completed [facility] SARS-COV-2 COVID-19 VACCINE - (MODERNA) Unknown Completed [facility] Pneumococcal Unspecified Unknown Completed [facility] Pneumococcal Unspecified Unknown Completed [facility] TDAP Unknown Completed [facility] Pneumococcal Polysaccharide, PPSV23 (PNEUMOVAX) Unknown Completed [facility] Pneumococcal Polysaccharide, PPSV23 (PNEUMOVAX) Unknown Completed [facility] Pneumococcal 13 Conjugate, PCV13 (Prevnar 13) Unknown Completed [facility] TDAP Unknown Completed [facility] Influenza High Dose Unknown Completed [facility] Influenza High Dose Unknown Completed [facility] Pneumococcal Polysaccharide, PPSV23 (PNEUMOVAX) Unknown Completed [facility] Influenza High Dose Unknown Completed [facility] Influenza High Dose Unknown Completed [facility] Influenza Virus Vaccine Unknown Completed [facility] Influenza Virus Vaccine Unknown Completed [facility] Influenza Virus Vaccine Unknown Completed [facility] Pneumococcal Polysaccharide, PPSV23 (PNEUMOVAX) Unknown Completed [facility] Pneumococcal Polysaccharide, PPSV23 (PNEUMOVAX) Unknown Completed [facility] SARS-COV-2 COVID-19 UNSPECIFIED VACCINE Unknown Completed [facility] SARS-COV-2 COVID-19 UNSPECIFIED VACCINE Unknown Completed [facility] Influenza Virus Vaccine Quad IM Multi-dose 6+ MO Unknown Completed [facility] Pneumococcal Polysaccharide, PPSV23 (PNEUMOVAX) Unknown Completed [facility] Influenza Virus Vaccine,quad Im,preserve Free 65+ (FLUAD) Unknown Completed [facility] SARS-COV-2 COVID-19 VACCINE - (MODERNA) Unknown Completed [facility] SARS-COV-2 COVID-19 VACCINE - (MODERNA) Unknown Completed [facility] Pneumococcal Unspecified Unknown Completed [facility] Pneumococcal Unspecified Unknown Completed [facility] TDAP Unknown Completed [facility] Pneumococcal Polysaccharide, PPSV23 (PNEUMOVAX) Unknown Completed [facility] Pneumococcal Polysaccharide, PPSV23 (PNEUMOVAX) Unknown Completed [facility] Pneumococcal 13 Conjugate, PCV13 (Prevnar 13) Unknown Completed [facility] TDAP Unknown Completed [facility] Influenza High Dose Unknown Completed [facility] Influenza High Dose Unknown Completed [facility] Pneumococcal Polysaccharide, PPSV23 (PNEUMOVAX) Unknown Completed [facility] Influenza High Dose Unknown Completed [facility] Influenza High Dose Unknown Completed [facility] Influenza Virus Vaccine Unknown Completed [facility] Influenza Virus Vaccine Unknown Completed [facility] Influenza Virus Vaccine Unknown Completed [facility] Pneumococcal Polysaccharide, PPSV23 (PNEUMOVAX) Unknown Completed [facility] Pneumococcal Polysaccharide, PPSV23 (PNEUMOVAX) Unknown Completed [facility] SARS-COV-2 COVID-19 UNSPECIFIED VACCINE Unknown Completed [facility] SARS-COV-2 COVID-19 UNSPECIFIED VACCINE Unknown Completed [facility] Influenza Virus Vaccine Quad IM Multi-dose 6+ MO Unknown Completed [facility] Pneumococcal Polysaccharide, PPSV23 (PNEUMOVAX) Unknown Completed [facility] Influenza Virus Vaccine,quad Im,preserve Free 65+ (FLUAD) Unknown Completed [facility] SARS-COV-2 COVID-19 VACCINE - (MODERNA) Unknown Completed [facility] SARS-COV-2 COVID-19 VACCINE - (MODERNA) Unknown Completed [facility] Pneumococcal Unspecified Unknown Completed [facility] Pneumococcal Unspecified Unknown Completed [facility] TDAP Unknown Completed [facility] Pneumococcal Polysaccharide, PPSV23 (PNEUMOVAX) Unknown Completed [facility] Pneumococcal Polysaccharide, PPSV23 (PNEUMOVAX) Unknown Completed [facility] Pneumococcal 13 Conjugate, PCV13 (Prevnar 13) Unknown Completed [facility] TDAP Unknown Completed [facility] Influenza High Dose Unknown Completed [facility] Influenza High Dose Unknown Completed [facility] Pneumococcal Polysaccharide, PPSV23 (PNEUMOVAX) Unknown Completed [facility] Influenza High Dose Unknown Completed [facility] Influenza High Dose Unknown Completed [facility] Influenza Virus Vaccine Unknown Completed [facility] Influenza Virus Vaccine Unknown Completed [facility] Influenza Virus Vaccine Unknown Completed [facility] Pneumococcal Polysaccharide, PPSV23 (PNEUMOVAX) Unknown Completed [facility] Pneumococcal Polysaccharide, PPSV23 (PNEUMOVAX) Unknown Completed [facility] SARS-COV-2 COVID-19 UNSPECIFIED VACCINE Unknown Completed [facility] SARS-COV-2 COVID-19 UNSPECIFIED VACCINE Unknown Completed [facility] Influenza Virus Vaccine Quad IM Multi-dose 6+ MO Unknown Completed [facility] Pneumococcal Polysaccharide, PPSV23 (PNEUMOVAX) Unknown Completed [facility] Influenza Virus Vaccine,quad Im,preserve Free 65+ (FLUAD) Unknown Completed [facility] SARS-COV-2 COVID-19 VACCINE - (MODERNA) Unknown Completed [facility] SARS-COV-2 COVID-19 VACCINE - (MODERNA) Unknown Completed [facility] Pneumococcal Unspecified Unknown Completed [facility] Pneumococcal Unspecified Unknown Completed [facility] TDAP Unknown Completed [facility] Pneumococcal Polysaccharide, PPSV23 (PNEUMOVAX) Unknown Completed [facility] Pneumococcal Polysaccharide, PPSV23 (PNEUMOVAX) Unknown Completed [facility] Pneumococcal 13 Conjugate, PCV13 (Prevnar 13) Unknown Completed [facility] TDAP Unknown Completed [facility] Influenza High Dose Unknown Completed [facility] Influenza High Dose Unknown Completed [facility] Pneumococcal Polysaccharide, PPSV23 (PNEUMOVAX) Unknown Completed [facility] Influenza High Dose Unknown Completed [facility] Influenza High Dose Unknown Completed [facility] Influenza Virus Vaccine Unknown Completed [facility] Influenza Virus Vaccine Unknown Completed [facility] Influenza Virus Vaccine Unknown Completed [facility] Pneumococcal Polysaccharide, PPSV23 (PNEUMOVAX) Unknown Completed [facility] Pneumococcal Polysaccharide, PPSV23 (PNEUMOVAX) Unknown Completed [facility] SARS-COV-2 COVID-19 UNSPECIFIED VACCINE Unknown Completed [facility] SARS-COV-2 COVID-19 UNSPECIFIED VACCINE Unknown Completed [facility] Influenza Virus Vaccine Quad IM Multi-dose 6+ MO Unknown Completed [facility] Pneumococcal Polysaccharide, PPSV23 (PNEUMOVAX) Unknown Completed [facility] Influenza Virus Vaccine,quad Im,preserve Free 65+ (FLUAD) Unknown Completed [facility] SARS-COV-2 COVID-19 VACCINE - (MODERNA) Unknown Completed [facility] SARS-COV-2 COVID-19 VACCINE - (MODERNA) Unknown Completed [facility] Pneumococcal Unspecified Unknown Completed [facility] Pneumococcal Unspecified Unknown Completed [facility] TDAP Unknown Completed [facility] Pneumococcal Polysaccharide, PPSV23 (PNEUMOVAX) Unknown Completed [facility] Pneumococcal Polysaccharide, PPSV23 (PNEUMOVAX) Unknown Completed [facility] Pneumococcal 13 Conjugate, PCV13 (Prevnar 13) Unknown Completed [facility] TDAP Unknown Completed [facility] Influenza High Dose Unknown Completed [facility] Influenza High Dose Unknown Completed [facility] Pneumococcal Polysaccharide, PPSV23 (PNEUMOVAX) Unknown Completed [facility] Influenza High Dose Unknown Completed [facility] Influenza High Dose Unknown Completed [facility] Influenza Virus Vaccine Unknown Completed [facility] Influenza Virus Vaccine Unknown Completed [facility] Influenza Virus Vaccine Unknown Completed [facility] Pneumococcal Polysaccharide, PPSV23 (PNEUMOVAX) Unknown Completed [facility] Pneumococcal Polysaccharide, PPSV23 (PNEUMOVAX) Unknown Completed [facility] SARS-COV-2 COVID-19 UNSPECIFIED VACCINE Unknown Completed [facility] SARS-COV-2 COVID-19 UNSPECIFIED VACCINE Unknown Completed [facility] Influenza Virus Vaccine Quad IM Multi-dose 6+ MO Unknown Completed [facility] Pneumococcal Polysaccharide, PPSV23 (PNEUMOVAX) Unknown Completed [facility] Influenza Virus Vaccine,quad Im,preserve Free 65+ (FLUAD) Unknown Completed [facility] SARS-COV-2 COVID-19 VACCINE - (MODERNA) Unknown Completed [facility] SARS-COV-2 COVID-19 VACCINE - (MODERNA) Unknown Completed [facility] Pneumococcal Unspecified Unknown Completed [facility] Pneumococcal Unspecified Unknown Completed [facility] TDAP Unknown Completed [facility] Pneumococcal Polysaccharide, PPSV23 (PNEUMOVAX) Unknown Completed [facility] Pneumococcal Polysaccharide, PPSV23 (PNEUMOVAX) Unknown Completed [facility] Pneumococcal 13 Conjugate, PCV13 (Prevnar 13) Unknown Completed [facility] TDAP Unknown Completed [facility] Influenza High Dose Unknown Completed [facility] Influenza High Dose Unknown Completed [facility] Pneumococcal Polysaccharide, PPSV23 (PNEUMOVAX) Unknown Completed [facility] Influenza High Dose Unknown Completed [facility] Influenza High Dose Unknown Completed [facility] Influenza Virus Vaccine Unknown Completed [facility] Influenza Virus Vaccine Unknown Completed [facility] Influenza Virus Vaccine Unknown Completed [facility] Pneumococcal Polysaccharide, PPSV23 (PNEUMOVAX) Unknown Completed [facility] Pneumococcal Polysaccharide, PPSV23 (PNEUMOVAX) Unknown Completed [facility] SARS-COV-2 COVID-19 UNSPECIFIED VACCINE Unknown Completed [facility] SARS-COV-2 COVID-19 UNSPECIFIED VACCINE Unknown Completed [facility] Influenza Virus Vaccine Quad IM Multi-dose 6+ MO Unknown Completed [facility] Pneumococcal Polysaccharide, PPSV23 (PNEUMOVAX) Unknown Completed [facility] Influenza Virus Vaccine,quad Im,preserve Free 65+ (FLUAD) Unknown Completed [facility] SARS-COV-2 COVID-19 VACCINE - (MODERNA) Unknown Completed [facility] SARS-COV-2 COVID-19 VACCINE - (MODERNA) Unknown Completed [facility] Pneumococcal Unspecified Unknown Completed [facility] Pneumococcal Unspecified Unknown Completed [facility] TDAP Unknown Completed [facility] Pneumococcal Polysaccharide, PPSV23 (PNEUMOVAX) Unknown Completed [facility] Pneumococcal Polysaccharide, PPSV23 (PNEUMOVAX) Unknown Completed [facility] Pneumococcal 13 Conjugate, PCV13 (Prevnar 13) Unknown Completed [facility] TDAP Unknown Completed [facility] Influenza High Dose Unknown Completed [facility] Influenza High Dose Unknown Completed [facility] Pneumococcal Polysaccharide, PPSV23 (PNEUMOVAX) Unknown Completed [facility] Influenza High Dose Unknown Completed [facility] Influenza High Dose Unknown Completed [facility] Influenza Virus Vaccine Unknown Completed [facility] Influenza Virus Vaccine Unknown Completed [facility] Influenza Virus Vaccine Unknown Completed [facility] Pneumococcal Polysaccharide, PPSV23 (PNEUMOVAX) Unknown Completed [facility] Pneumococcal Polysaccharide, PPSV23 (PNEUMOVAX) Unknown Completed [facility] SARS-COV-2 COVID-19 UNSPECIFIED VACCINE Unknown Completed [facility] SARS-COV-2 COVID-19 UNSPECIFIED VACCINE Unknown Completed [facility] Influenza Virus Vaccine Quad IM Multi-dose 6+ MO Unknown Completed [facility] Pneumococcal Polysaccharide, PPSV23 (PNEUMOVAX) [facility] [facility],quad Im,preserve Free 65+ (FLUAD) Unknown Completed [facility] SARS-COV-2 COVID-19 VACCINE - (MODERNA) Unknown Completed [facility] SARS-COV-2 COVID-19 VACCINE - (MODERNA) Unknown Completed [facility] Pneumococcal Unspecified Unknown Completed [facility] Pneumococcal Unspecified Unknown Completed [facility] TDAP Unknown Completed [facility] Pneumococcal Polysaccharide, PPSV23 (PNEUMOVAX) Unknown Completed [facility] Pneumococcal Polysaccharide, PPSV23 (PNEUMOVAX) Unknown Completed [facility] Pneumococcal 13 Conjugate, PCV13 (Prevnar 13) Unknown Completed [facility] TDAP Unknown Completed [facility] Influenza High Dose Unknown Completed [facility] Influenza High Dose Unknown Completed [facility] Pneumococcal Polysaccharide, PPSV23 (PNEUMOVAX) Unknown Completed [facility] Influenza High Dose Unknown Completed [facility] Influenza High Dose Unknown Completed [facility] Influenza Virus Vaccine Unknown Completed [facility] Influenza Virus Vaccine Unknown Completed [facility] Influenza Virus Vaccine Unknown Completed [facility] Pneumococcal Polysaccharide, PPSV23 (PNEUMOVAX) Unknown Completed [facility] Pneumococcal Polysaccharide, PPSV23 (PNEUMOVAX) Unknown Completed [facility] SARS-COV-2 COVID-19 UNSPECIFIED VACCINE Unknown Completed [facility] SARS-COV-2 COVID-19 UNSPECIFIED VACCINE Unknown Completed [facility] Influenza Virus Vaccine Quad IM Multi-dose 6+ MO Unknown Completed [facility] Pneumococcal Polysaccharide, PPSV23 (PNEUMOVAX) Unknown Completed [facility] Influenza Virus Vaccine,quad Im,preserve Free 65+ (FLUAD) Unknown Completed [facility] SARS-COV-2 COVID-19 VACCINE - (MODERNA) Unknown Completed [facility] SARS-COV-2 COVID-19 VACCINE - (MODERNA) Unknown Completed [facility] Pneumococcal Unspecified Unknown Completed [facility] Pneumococcal Unspecified Unknown Completed [facility] TDAP Unknown Completed [facility] Pneumococcal Polysaccharide, PPSV23 (PNEUMOVAX) Unknown Completed [facility] Pneumococcal Polysaccharide, PPSV23 (PNEUMOVAX) Unknown Completed [facility] Pneumococcal 13 Conjugate, PCV13 (Prevnar 13) Unknown Completed [facility] TDAP Unknown Completed [facility] Influenza High Dose Unknown Completed [facility] Influenza High Dose Unknown Completed [facility] Pneumococcal Polysaccharide, PPSV23 (PNEUMOVAX) Unknown Completed [facility] Influenza High Dose Unknown Completed [facility] Influenza High Dose Unknown Completed [facility] Influenza Virus Vaccine Unknown Completed [facility] Influenza Virus Vaccine Unknown Completed [facility] Influenza Virus Vaccine Unknown Completed [facility] Pneumococcal Polysaccharide, PPSV23 (PNEUMOVAX) Unknown Completed [facility] Pneumococcal Polysaccharide, PPSV23 (PNEUMOVAX) Unknown Completed [facility] SARS-COV-2 COVID-19 UNSPECIFIED VACCINE Unknown Completed [facility] SARS-COV-2 COVID-19 UNSPECIFIED VACCINE Unknown Completed [facility] Influenza Virus Vaccine Quad IM Multi-dose 6+ MO Unknown Completed [facility] Pneumococcal Polysaccharide, PPSV23 (PNEUMOVAX) Unknown Completed [facility] Influenza Virus Vaccine,quad Im,preserve Free 65+ (FLUAD) Unknown Completed [facility] SARS-COV-2 COVID-19 VACCINE - (MODERNA) Unknown Completed [facility] SARS-COV-2 COVID-19 VACCINE - (MODERNA) Unknown Completed [facility] Pneumococcal Polysaccharide, PPSV23 (PNEUMOVAX) Unknown Completed [facility] Pneumococcal Polysaccharide, PPSV23 (PNEUMOVAX) Unknown Completed [facility] Pneumococcal 13 Conjugate, PCV13 (Prevnar 13) Unknown Completed [facility] TDAP Unknown Completed [facility] Influenza High Dose Unknown Completed [facility] Influenza High Dose Unknown Completed [facility] Pneumococcal Polysaccharide, PPSV23 (PNEUMOVAX) Unknown Completed [facility] Influenza High Dose Unknown Completed [facility] Influenza High Dose Unknown Completed [facility] Influenza Virus Vaccine Unknown Completed [facility] Influenza Virus Vaccine Unknown Completed [facility] Influenza Virus Vaccine Unknown Completed [facility] Pneumococcal Polysaccharide, PPSV23 (PNEUMOVAX) Unknown Completed [facility] Pneumococcal Polysaccharide, PPSV23 (PNEUMOVAX) Unknown Completed [facility] SARS-COV-2 COVID-19 UNSPECIFIED VACCINE Unknown Completed [facility] SARS-COV-2 COVID-19 UNSPECIFIED VACCINE Unknown Completed [facility] Influenza Virus Vaccine Quad IM Multi-dose 6+ MO Unknown Completed [facility] Pneumococcal Polysaccharide, PPSV23 (PNEUMOVAX) Unknown Completed [facility] Influenza Virus Vaccine,quad Im,preserve Free 65+ (FLUAD) Unknown Completed [facility] SARS-COV-2 COVID-19 VACCINE - (MODERNA) Unknown Completed [facility] SARS-COV-2 COVID-19 VACCINE - (MODERNA) Unknown Completed [facility] Pneumococcal Polysaccharide, PPSV23 (PNEUMOVAX) Unknown Completed [facility] Pneumococcal Polysaccharide, PPSV23 (PNEUMOVAX) Unknown Completed [facility] Pneumococcal 13 Conjugate, PCV13 (Prevnar 13) Unknown Completed [facility] TDAP Unknown Completed [facility] Influenza High Dose Unknown Completed [facility] Influenza High Dose Unknown Completed [facility] Pneumococcal Polysaccharide, PPSV23 (PNEUMOVAX) Unknown Completed [facility] Influenza High Dose Unknown Completed [facility] Influenza High Dose Unknown Completed [facility] Influenza Virus Vaccine Unknown Completed [facility] Influenza Virus Vaccine Unknown Completed [facility] Influenza Virus Vaccine Unknown Completed [facility] Pneumococcal Polysaccharide, PPSV23 (PNEUMOVAX) Unknown Completed [facility] Pneumococcal Polysaccharide, PPSV23 (PNEUMOVAX) Unknown Completed [facility] SARS-COV-2 COVID-19 UNSPECIFIED VACCINE Unknown Completed [facility] SARS-COV-2 COVID-19 UNSPECIFIED VACCINE Unknown Completed [facility] Influenza Virus Vaccine Quad IM Multi-dose 6+ MO Unknown Completed [facility] Pneumococcal Polysaccharide, PPSV23 (PNEUMOVAX) Unknown Completed [facility] Influenza Virus Vaccine,quad Im,preserve Free 65+ (FLUAD) Unknown Completed [facility] SARS-COV-2 COVID-19 VACCINE - (MODERNA) Unknown Completed [facility] SARS-COV-2 COVID-19 VACCINE - (MODERNA) Unknown Completed [facility] Pneumococcal Polysaccharide, PPSV23 (PNEUMOVAX) Unknown Completed [facility] Pneumococcal Polysaccharide, PPSV23 (PNEUMOVAX) Unknown Completed [facility] Pneumococcal 13 Conjugate, PCV13 (Prevnar 13) Unknown Completed [facility] TDAP Unknown Completed [facility] Influenza High Dose Unknown Completed [facility] Influenza High Dose Unknown Completed [facility] Pneumococcal Polysaccharide, PPSV23 (PNEUMOVAX) Unknown Completed [facility] Influenza High Dose Unknown Completed [facility] Influenza High Dose Unknown Completed [facility] Influenza Virus Vaccine Unknown Completed [facility] Influenza Virus Vaccine Unknown Completed [facility] Influenza Virus Vaccine Unknown Completed [facility] Pneumococcal Polysaccharide, PPSV23 (PNEUMOVAX) Unknown Completed [facility] Pneumococcal Polysaccharide, PPSV23 (PNEUMOVAX) Unknown Completed [facility] SARS-COV-2 COVID-19 UNSPECIFIED VACCINE Unknown Completed [facility] SARS-COV-2 COVID-19 UNSPECIFIED VACCINE Unknown Completed [facility] Influenza Virus Vaccine Quad IM Multi-dose 6+ MO Unknown Completed [facility] Pneumococcal Polysaccharide, PPSV23 (PNEUMOVAX) Unknown Completed [facility] Influenza Virus Vaccine,quad Im,preserve Free 65+ (FLUAD) Unknown Completed [facility] SARS-COV-2 COVID-19 VACCINE - (MODERNA) Unknown Completed [facility] SARS-COV-2 COVID-19 VACCINE - (MODERNA) Unknown Completed [facility] Pneumococcal Polysaccharide, PPSV23 (PNEUMOVAX) Unknown Completed [facility] Pneumococcal Polysaccharide, PPSV23 (PNEUMOVAX) Unknown Completed [facility] Pneumococcal 13 Conjugate, PCV13 (Prevnar 13) Unknown Completed [facility] TDAP Unknown Completed [facility] Influenza High Dose Unknown Completed [facility] Influenza High Dose Unknown Completed [facility] Pneumococcal Polysaccharide, PPSV23 (PNEUMOVAX) Unknown Completed [facility] Influenza High Dose Unknown Completed [facility] Influenza High Dose Unknown Completed [facility] Influenza Virus Vaccine Unknown Completed [facility] Influenza Virus Vaccine Unknown Completed [facility] Influenza Virus Vaccine Unknown Completed [facility] Pneumococcal Polysaccharide, PPSV23 (PNEUMOVAX) Unknown Completed [facility] Pneumococcal Polysaccharide, PPSV23 (PNEUMOVAX) Unknown Completed [facility] SARS-COV-2 COVID-19 UNSPECIFIED VACCINE Unknown Completed [facility] SARS-COV-2 COVID-19 UNSPECIFIED VACCINE Unknown Completed [facility] Influenza Virus Vaccine Quad IM Multi-dose 6+ MO Unknown Completed [facility] Pneumococcal Polysaccharide, PPSV23 (PNEUMOVAX) Unknown Completed [facility] Influenza Virus Vaccine,quad Im,preserve Free 65+ (FLUAD) Unknown Completed [facility] SARS-COV-2 COVID-19 VACCINE - (MODERNA) Unknown Completed [facility] SARS-COV-2 COVID-19 VACCINE - (MODERNA) Unknown Completed [facility] Pneumococcal Polysaccharide, PPSV23 (PNEUMOVAX) Unknown Completed [facility] Pneumococcal Polysaccharide, PPSV23 (PNEUMOVAX) Unknown Completed [facility] Pneumococcal 13 Conjugate, PCV13 (Prevnar 13) Unknown Completed [facility] TDAP Unknown Completed [facility] Influenza High Dose Unknown Completed [facility] Influenza High Dose Unknown Completed [facility] Pneumococcal Polysaccharide, PPSV23 (PNEUMOVAX) Unknown Completed [facility] Influenza High Dose Unknown Completed [facility] Influenza High Dose Unknown Completed [facility] Influenza Virus Vaccine Unknown Completed [facility] Influenza Virus Vaccine Unknown Completed [facility] Influenza Virus Vaccine Unknown Completed [facility] Pneumococcal Polysaccharide, PPSV23 (PNEUMOVAX) Unknown Completed [facility] Pneumococcal Polysaccharide, PPSV23 (PNEUMOVAX) Unknown Completed [facility] SARS-COV-2 COVID-19 UNSPECIFIED VACCINE Unknown Completed [facility] SARS-COV-2 COVID-19 UNSPECIFIED VACCINE Unknown Completed [facility] Influenza Virus Vaccine Quad IM Multi-dose 6+ MO Unknown Completed [facility] Pneumococcal Polysaccharide, PPSV23 (PNEUMOVAX) Unknown Completed [facility] Influenza Virus Vaccine,quad Im,preserve Free 65+ (FLUAD) Unknown Completed [facility] SARS-COV-2 COVID-19 VACCINE - (MODERNA) Unknown Completed [facility] SARS-COV-2 COVID-19 VACCINE - (MODERNA) Unknown Completed [facility] Pneumococcal Polysaccharide, PPSV23 (PNEUMOVAX) Unknown Completed [facility] Pneumococcal Polysaccharide, PPSV23 (PNEUMOVAX) Unknown Completed [facility] Pneumococcal 13 Conjugate, PCV13 (Prevnar 13) Unknown Completed [facility] TDAP Unknown Completed [facility] Influenza High Dose Unknown Completed [facility] Influenza High Dose Unknown Completed [facility] Pneumococcal Polysaccharide, PPSV23 (PNEUMOVAX) Unknown Completed [facility] Influenza High Dose Unknown Completed [facility] Influenza High Dose Unknown Completed [facility] Influenza Virus Vaccine Unknown Completed [facility] Influenza Virus Vaccine Unknown Completed [facility] Influenza Virus Vaccine Unknown Completed [facility] Pneumococcal Polysaccharide, PPSV23 (PNEUMOVAX) Unknown Completed [facility] Pneumococcal Polysaccharide, PPSV23 (PNEUMOVAX) Unknown Completed [facility] SARS-COV-2 COVID-19 UNSPECIFIED VACCINE Unknown Completed [facility] SARS-COV-2 COVID-19 UNSPECIFIED VACCINE Unknown Completed [facility] Influenza Virus Vaccine Quad IM Multi-dose 6+ MO Unknown Completed [facility] Pneumococcal Polysaccharide, PPSV23 (PNEUMOVAX) Unknown Completed [facility] Influenza Virus Vaccine,quad Im,preserve Free 65+ (FLUAD) Unknown Completed [facility] SARS-COV-2 COVID-19 VACCINE - (MODERNA) Unknown Completed [facility] SARS-COV-2 COVID-19 VACCINE - (MODERNA) Unknown Completed [facility] Pneumococcal Polysaccharide, PPSV23 (PNEUMOVAX) Unknown Completed [facility] Pneumococcal Polysaccharide, PPSV23 (PNEUMOVAX) Unknown Completed [facility] Pneumococcal 13 Conjugate, PCV13 (Prevnar 13) Unknown Completed [facility] TDAP Unknown Completed [facility] Influenza High Dose Unknown Completed [facility] Influenza High Dose Unknown Completed [facility] Pneumococcal Polysaccharide, PPSV23 (PNEUMOVAX) Unknown Completed [facility] Influenza High Dose Unknown Completed [facility] Influenza High Dose Unknown Completed [facility] Influenza Virus Vaccine Unknown Completed [facility] Influenza Virus Vaccine Unknown Completed [facility] Influenza Virus Vaccine Unknown Completed [facility] Pneumococcal Polysaccharide, PPSV23 (PNEUMOVAX) Unknown Completed [facility] Pneumococcal Polysaccharide, PPSV23 (PNEUMOVAX) Unknown Completed [facility] SARS-COV-2 COVID-19 UNSPECIFIED VACCINE Unknown Completed [facility] SARS-COV-2 COVID-19 UNSPECIFIED VACCINE Unknown Completed [facility] Influenza Virus Vaccine Quad IM Multi-dose 6+ MO Unknown Completed [facility] Pneumococcal Polysaccharide, PPSV23 (PNEUMOVAX) Unknown Completed [facility] Influenza Virus Vaccine,quad Im,preserve Free 65+ (FLUAD) Unknown Completed [facility] SARS-COV-2 COVID-19 VACCINE - (MODERNA) Unknown Completed [facility] SARS-COV-2 COVID-19 VACCINE - (MODERNA) Unknown Completed [facility] Pneumococcal Polysaccharide, PPSV23 (PNEUMOVAX) Unknown Completed [facility] Pneumococcal Polysaccharide, PPSV23 (PNEUMOVAX) Unknown Completed [facility] Pneumococcal 13 Conjugate, PCV13 (Prevnar 13) Unknown Completed [facility] TDAP Unknown Completed [facility] Influenza High Dose Unknown Completed [facility] Influenza High Dose Unknown Completed [facility] Pneumococcal Polysaccharide, PPSV23 (PNEUMOVAX) Unknown Completed [facility] Influenza High Dose Unknown Completed [facility] Influenza High Dose Unknown Completed [facility] Influenza Virus Vaccine Unknown Completed [facility] Influenza Virus Vaccine Unknown Completed [facility] Influenza Virus Vaccine Unknown Completed [facility] Pneumococcal Polysaccharide, PPSV23 (PNEUMOVAX) Unknown Completed [facility] Pneumococcal Polysaccharide, PPSV23 (PNEUMOVAX) Unknown Completed [facility] SARS-COV-2 COVID-19 UNSPECIFIED VACCINE Unknown Com[facility] SARS-COV-2 COVID-19 UNSPECIFIED VACCINE Unknown Completed [facility] Influenza Virus Vaccine Quad IM Multi-dose 6+ MO Unknown Completed [facility] Pneumococcal Polysaccharide, PPSV23 (PNEUMOVAX) Unknown Completed [facility] Influenza Virus Vaccine,quad Im,preserve Free 65+ (FLUAD) Unknown Completed [facility] SARS-COV-2 COVID-19 VACCINE - (MODERNA) Unknown Completed [facility] SARS-COV-2 COVID-19 VACCINE - (MODERNA) Unknown Completed [facility] Pneumococcal Polysaccharide, PPSV23 (PNEUMOVAX) Unknown Completed [facility] Pneumococcal Polysaccharide, PPSV23 (PNEUMOVAX) Unknown Completed [facility] Pneumococcal 13 Conjugate, PCV13 (Prevnar 13) Unknown Completed [facility] TDAP Unknown Completed [facility] Influenza High Dose Unknown Completed [facility] Influenza High Dose Unknown Completed [facility] Pneumococcal Polysaccharide, PPSV23 (PNEUMOVAX) Unknown Completed [facility] Influenza High Dose Unknown Completed [facility] Influenza High Dose Unknown Completed [facility] Influenza Virus Vaccine Unknown Completed [facility] Influenza Virus Vaccine Unknown Completed [facility] Influenza Virus Vaccine Unknown Completed [facility] Pneumococcal Polysaccharide, PPSV23 (PNEUMOVAX) Unknown Completed [facility] Pneumococcal Polysaccharide, PPSV23 (PNEUMOVAX) Unknown Completed [facility] SARS-COV-2 COVID-19 UNSPECIFIED VACCINE Unknown Completed [facility] SARS-COV-2 COVID-19 UNSPECIFIED VACCINE Unknown Completed [facility] Influenza Virus Vaccine Quad IM Multi-dose 6+ MO Unknown Completed [facility] Pneumococcal Polysaccharide, PPSV23 (PNEUMOVAX) Unknown Completed [facility] SARS-COV-2 COVID-19 VACCINE - (MODERNA) Unknown Completed [facility] SARS-COV-2 COVID-19 VACCINE - (MODERNA) Unknown Completed [facility] Pneumococcal Polysaccharide, PPSV23 (PNEUMOVAX) Unknown Completed [facility] Pneumococcal Polysaccharide, PPSV23 (PNEUMOVAX) Unknown Completed [facility] Pneumococcal 13 Conjugate, PCV13 (Prevnar 13) Unknown Completed [facility] TDAP Unknown Completed [facility] Influenza High Dose Unknown Completed [facility] Influenza High Dose Unknown Completed [facility] Pneumococcal Polysaccharide, PPSV23 (PNEUMOVAX) Unknown Completed [facility] Influenza High Dose Unknown Completed [facility] Influenza High Dose Unknown Completed [facility] Influenza Virus Vaccine Unknown Completed [facility] Influenza Virus Vaccine Unknown Completed [facility] Influenza Virus Vaccine Unknown Completed [facility] Pneumococcal Polysaccharide, PPSV23 (PNEUMOVAX) Unknown Completed [facility] Pneumococcal Polysaccharide, PPSV23 (PNEUMOVAX) Unknown Completed [facility] SARS-COV-2 COVID-19 UNSPECIFIED VACCINE Unknown [facility] UNSPECIFIED VACCINE Unknown Completed [facility] Influenza Virus Vaccine Quad IM Multi-dose 6+ MO Unknown Completed [facility] Pneumococcal Polysaccharide, PPSV23 (PNEUMOVAX) Unknown Completed [facility] SARS-COV-2 COVID-19 VACCINE - (MODERNA) Unknown Completed [facility] SARS-COV-2 COVID-19 VACCINE - (MODERNA) Unknown Completed [facility] Pneumococcal Polysaccharide, PPSV23 (PNEUMOVAX) Unknown Completed [facility] Pneumococcal Polysaccharide, PPSV23 (PNEUMOVAX) Unknown Completed [facility] Pneumococcal 13 Conjugate, PCV13 (Prevnar 13) Unknown Completed [facility] TDAP Unknown Completed [facility] Influenza High Dose Unknown Completed [facility] Influenza High Dose Unknown Completed [facility] Pneumococcal Polysaccharide, PPSV23 (PNEUMOVAX) Unknown Completed [facility] Influenza High Dose Unknown Completed [facility] Influenza High Dose Unknown Completed [facility] Influenza Virus Vaccine Unknown Completed [facility] Influenza Virus Vaccine Unknown Completed [facility] Influenza Virus Vaccine Unknown Completed [facility] Pneumococcal Polysaccharide, PPSV23 (PNEUMOVAX) Unknown Completed [facility] Pneumococcal Polysaccharide, PPSV23 (PNEUMOVAX) Unknown Completed [facility] SARS-COV-2 COVID-19 UNSPECIFIED VACCINE Unknown Completed [facility] SARS-COV-2 COVID-19 UNSPECIFIED VACCINE Unknown Completed [facility] Influenza Virus Vaccine Quad IM Multi-dose 6+ MO Unknown Completed [facility] Pneumococcal Polysaccharide, PPSV23 (PNEUMOVAX) Unknown Completed [facility] SARS-COV-2 COVID-19 VACCINE - (MODERNA) Unknown Completed [facility] SARS-COV-2 COVID-19 VACCINE - (MODERNA) Unknown Completed [facility] Pneumococcal Polysaccharide, PPSV23 (PNEUMOVAX) Unknown Completed [facility] Pneumococcal Polysaccharide, PPSV23 (PNEUMOVAX) Unknown Completed [facility] Pneumococcal 13 Conjugate, PCV13 (Prevnar 13) Unknown Completed [facility] TDAP Unknown Completed [facility] Influenza High Dose Unknown Completed [facility] Influenza High Dose Unknown Completed [facility] Pneumococcal Polysaccharide, PPSV23 (PNEUMOVAX) Unknown Completed [facility] Influenza High Dose Unknown Completed [facility] Influenza High Dose Unknown Completed [facility] Influenza Virus Vaccine Unknown Completed [facility] Influenza Virus Vaccine Unknown Completed [facility] Influenza Virus Vaccine Unknown Completed [facility] Pneumococcal Polysaccharide, PPSV23 (PNEUMOVAX) Unknown Completed [facility] Pneumococcal Polysaccharide, PPSV23 (PNEUMOVAX) Unknown Completed [facility] SARS-COV-2 COVID-19 UNSPECIFIED VACCINE Unknown Completed [facility] SARS-COV-2 COVID-19 UNSPECIFIED VACCINE Unknown Completed [facility] Influenza Virus Vaccine Quad IM Multi-dose 6+ MO Unknown Completed [facility] Pneumococcal Polysaccharide, PPSV23 (PNEUMOVAX) Unknown Completed [facility] Influenza Virus Vaccine,quad Im,preserve Free 65+ (FLUAD) Unknown Completed [facility] SARS-COV-2 COVID-19 VACCINE - (MODERNA) Unknown Completed [facility] SARS-COV-2 COVID-19 VACCINE - (MODERNA) Unknown Completed [facility] Pneumococcal Polysaccharide, PPSV23 (PNEUMOVAX) Unknown Completed [facility] Pneumococcal Polysaccharide, PPSV23 (PNEUMOVAX) Unknown Completed [facility] Pneumococcal 13 Conjugate, PCV13 (Prevnar 13) Unknown Completed [facility] TDAP Unknown Completed [facility] Influenza High Dose Unknown Completed [facility] Influenza High Dose Unknown Completed [facility] Pneumococcal Polysaccharide, PPSV23 (PNEUMOVAX) Unknown Completed [facility] Influenza High Dose Unknown Completed [facility] Influenza High Dose Unknown Completed [facility] Influenza Virus Vaccine Unknown Completed [facility] Influenza Virus Vaccine Unknown Completed [facility] Influenza Virus Vaccine Unknown Completed [facility] Pneumococcal Polysaccharide, PPSV23 (PNEUMOVAX) Unknown Completed [facility] Pneumococcal Polysaccharide, PPSV23 (PNEUMOVAX) Unknown Completed [facility] SARS-COV-2 COVID-19 UNSPECIFIED VACCINE Unknown Completed [facility] SARS-COV-2 COVID-19 UNSPECIFIED VACCINE Unknown Completed [facility] Influenza Virus Vaccine Quad IM Multi-dose 6+ MO Unknown Completed [facility] Pneumococcal Polysaccharide, PPSV23 (PNEUMOVAX) Unknown Completed [facility] Influenza Virus Vaccine,quad Im,preserve Free 65+ (FLUAD) Unknown Completed [facility] SARS-COV-2 COVID-19 VACCINE - (MODERNA) Unknown Completed [facility] SARS-COV-2 COVID-19 VACCINE - (MODERNA) Unknown Completed [facility] Pneumococcal Polysaccharide, PPSV23 (PNEUMOVAX) Unknown Completed [facility] Pneumococcal Polysaccharide, PPSV23 (PNEUMOVAX) Unknown Completed [facility] Pneumococcal 13 Conjugate, PCV13 (Prevnar 13) Unknown Completed [facility] TDAP Unknown Completed [facility] Influenza High Dose Unknown Completed [facility] Influenza High Dose Unknown Completed [facility] Pneumococcal Polysaccharide, PPSV23 (PNEUMOVAX) Unknown Completed [facility] Influenza High Dose Unknown Completed [facility] Influenza High Dose Unknown Completed [facility] Influenza Virus Vaccine Unknown Completed [facility] Influenza Virus Vaccine Unknown Completed [facility] Influenza Virus Vaccine Unknown Completed [facility] Pneumococcal Polysaccharide, PPSV23 (PNEUMOVAX) Unknown Completed [facility] Pneumococcal Polysaccharide, PPSV23 (PNEUMOVAX) Unknown Completed [facility] SARS-COV-2 COVID-19 UNSPECIFIED VACCINE Unknown Completed [facility] SARS-COV-2 COVID-19 UNSPECIFIED VACCINE Unknown Completed [facility] Influenza Virus Vaccine Quad IM Multi-dose 6+ MO Unknown Completed [facility] Pneumococcal Polysaccharide, PPSV23 (PNEUMOVAX) Unknown Completed [facility] Influenza Virus Vaccine,quad Im,preserve Free 65+ (FLUAD) Unknown Completed [facility] SARS-COV-2 COVID-19 VACCINE - (MODERNA) Unknown Completed [facility] SARS-COV-2 COVID-19 VACCINE - (MODERNA) Unknown Completed [facility] Pneumococcal Polysaccharide, PPSV23 (PNEUMOVAX) Unknown Completed [facility] Pneumococcal Polysaccharide, PPSV23 (PNEUMOVAX) Unknown Completed [facility] Pneumococcal 13 Conjugate, PCV13 (Prevnar 13) Unknown Completed [facility] TDAP Unknown Completed [facility] Influenza High Dose Unknown Completed [facility] Influenza High Dose Unknown Completed [facility] Pneumococcal Polysaccharide, PPSV23 (PNEUMOVAX) Unknown Completed [facility] Influenza High Dose Unknown Completed [facility] Influenza High Dose Unknown Completed [facility] Influenza Virus Vaccine Unknown Completed [facility] Influenza Virus Vaccine Unknown Completed [facility] Influenza Virus Vaccine Unknown Completed [facility] Pneumococcal Polysaccharide, PPSV23 (PNEUMOVAX) Unknown Completed [facility] Pneumococcal Polysaccharide, PPSV23 (PNEUMOVAX) Unknown Completed [facility] SARS-COV-2 COVID-19 UNSPECIFIED VACCINE Unknown Completed [facility] SARS-COV-2 COVID-19 UNSPECIFIED VACCINE Unknown Completed [facility] Influenza Virus Vaccine Quad IM Multi-dose 6+ MO Unknown Completed [facility] Pneumococcal Polysaccharide, PPSV23 (PNEUMOVAX) Unknown Completed [facility] Influenza Virus Vaccine,quad Im,preserve Free 65+ (FLUAD) Unknown Completed [facility] SARS-COV-2 COVID-19 VACCINE - (MODERNA) Unknown Completed [facility] SARS-COV-2 COVID-19 VACCINE - (MODERNA) Unknown Completed [facility] Pneumococcal Polysaccharide, PPSV23 (PNEUMOVAX) Unknown Completed [facility] Pneumococcal Polysaccharide, PPSV23 (PNEUMOVAX) Unknown Completed [facility] Pneumococcal 13 Conjugate, PCV13 (Prevnar 13) Unknown Completed [facility] TDAP Unknown Completed [facility] Influenza High Dose Unknown Completed [facility] Influenza High Dose Unknown Completed [facility] Pneumococcal Polysaccharide, PPSV23 (PNEUMOVAX) Unknown Completed [facility] Influenza High Dose Unknown Completed [facility] Influenza High Dose Unknown Completed [facility] Influenza Virus Vaccine Unknown Completed [facility] Influenza Virus Vaccine Unknown Completed [facility] Influenza Virus Vaccine Unknown Completed [facility] Pneumococcal Polysaccharide, PPSV23 (PNEUMOVAX) Unknown Completed [facility] Pneumococcal Polysaccharide, PPSV23 (PNEUMOVAX) Unknown Completed [facility] SARS-COV-2 COVID-19 UNSPECIFIED VACCINE Unknown Completed [facility] SARS-COV-2 COVID-19 UNSPECIFIED VACCINE Unknown Completed [facility] Influenza Virus Vaccine Quad IM Multi-dose 6+ MO Unknown Completed [facility] Pneumococcal Polysaccharide, PPSV23 (PNEUMOVAX) Unknown Completed [facility] Influenza Virus Vaccine,quad Im,preserve Free 65+ (FLUAD) Unknown Completed [facility] SARS-COV-2 COVID-19 VACCINE - (MODERNA) Unknown Completed [facility] SARS-COV-2 COVID-19 VACCINE - (MODERNA) Unknown Completed [facility] Pneumococcal Polysaccharide, PPSV23 (PNEUMOVAX) Unknown Completed [facility] Pneumococcal Polysaccharide, PPSV23 (PNEUMOVAX) Unknown Completed [facility] Pneumococcal 13 Conjugate, PCV13 (Prevnar 13) Unknown Completed [facility] TDAP Unknown Completed [facility] Influenza High Dose Unknown Completed [facility] Influenza High Dose Unknown Completed [facility] Pneumococcal Polysaccharide, PPSV23 (PNEUMOVAX) Unknown Completed [facility] Influenza High Dose Unknown Completed [facility] Influenza High Dose Unknown Completed [facility] Influenza Virus Vaccine Unknown Completed [facility] Influenza Virus Vaccine Unknown Completed [facility] Influenza Virus Vaccine Unknown Completed [facility] Pneumococcal Polysaccharide, PPSV23 (PNEUMOVAX) Unknown Completed [facility] Pneumococcal Polysaccharide, PPSV23 (PNEUMOVAX) Unknown Completed [facility] SARS-COV-2 COVID-19 UNSPECIFIED VACCINE Unknown Completed [facility] SARS-COV-2 COVID-19 UNSPECIFIED VACCINE Unknown Completed [facility] Influenza Virus Vaccine Quad IM Multi-dose 6+ MO Unknown Completed [facility] Pneumococcal Polysaccharide, PPSV23 (PNEUMOVAX) Unknown Completed [facility] Influenza Virus Vaccine,quad Im,preserve Free 65+ (FLUAD) Unknown Completed [facility] SARS-COV-2 COVID-19 VACCINE - (MODERNA) [facility]ACC[facility] - (MODERNA) Unknown Completed [facility] Pneumococcal Polysaccharide, PPSV23 (PNEUMOVAX) Unknown Completed [facility] Pneumococcal Polysaccharide, PPSV23 (PNEUMOVAX) Unknown Completed [facility] Pneumococcal 13 Conjugate, PCV13 (Prevnar 13) Unknown Completed [facility] TDAP Unknown Completed [facility] Influenza High Dose Unknown Completed [facility] Influenza High Dose Unknown Completed [facility] Pneumococcal Polysaccharide, PPSV23 (PNEUMOVAX) Unknown Completed [facility] Influenza High Dose Unknown Completed [facility] Influenza High Dose Unknown Completed [facility] Influenza Virus Vaccine Unknown Completed [facility] Influenza Virus Vaccine Unknown Completed [facility] Influenza Virus Vaccine Unknown Completed [facility] Pneumococcal Polysaccharide, PPSV23 (PNEUMOVAX) Unknown Completed [facility] Pneumococcal Polysaccharide, PPSV23 (PNEUMOVAX) Unknown Completed [facility] SARS-COV-2 COVID-19 UNSPECIFIED VACCINE Unknown Completed [facility] SARS-COV-2 COVID-19 UNSPECIFIED VACCINE Unknown Completed [facility] Influenza Virus Vaccine Quad IM Multi-dose 6+ MO Unknown Completed [facility] Pneumococcal Polysaccharide, PPSV23 (PNEUMOVAX) Unknown Completed [facility] Influenza Virus Vaccine,quad Im,preserve Free 65+ (FLUAD) Unknown Completed [facility] SARS-COV-2 COVID-19 VACCINE - (MODERNA) Unknown Completed [facility] SARS-COV-2 COVID-19 VACCINE - (MODERNA) Unknown Completed [facility] Pneumococcal Polysaccharide, PPSV23 (PNEUMOVAX) Unknown Completed [facility] Pneumococcal Polysaccharide, PPSV23 (PNEUMOVAX) Unknown Completed [facility] Pneumococcal 13 Conjugate, PCV13 (Prevnar 13) Unknown Completed [facility] TDAP Unknown Completed [facility] Influenza High Dose Unknown Completed [facility] Influenza High Dose Unknown Completed [facility] Pneumococcal Polysaccharide, PPSV23 (PNEUMOVAX) Unknown Completed [facility] Influenza High Dose Unknown Completed [facility] Influenza High Dose Unknown Completed [facility] Influenza Virus Vaccine Unknown Completed [facility] Influenza Virus Vaccine Unknown Completed [facility] Influenza Virus Vaccine Unknown Completed [facility] Pneumococcal Polysaccharide, PPSV23 (PNEUMOVAX) Unknown Completed [facility] Pneumococcal Polysaccharide, PPSV23 (PNEUMOVAX) Unknown Completed [facility] SARS-COV-2 COVID-19 UNSPECIFIED VACCINE Unknown Completed [facility] SARS-COV-2 COVID-19 UNSPECIFIED VACCINE Unknown Completed [facility] Influenza Virus Vaccine Quad IM Multi-dose 6+ MO Unknown Completed [facility] Pneumococcal Polysaccharide, PPSV23 (PNEUMOVAX) Unknown Completed [facility] Influenza Virus Vaccine,quad Im,preserve Free 65+ (FLUAD) Unknown Completed [facility] SARS-COV-2 COVID-19 VACCINE - (MODERNA) Unknown Completed [facility] SARS-COV-2 COVID-19 VACCINE - (MODERNA) Unknown Completed [facility] Pneumococcal Polysaccharide, PPSV23 (PNEUMOVAX) Unknown Completed [facility] Pneumococcal Polysaccharide, PPSV23 (PNEUMOVAX) Unknown Completed [facility] Pneumococcal 13 Conjugate, PCV13 (Prevnar 13) Unknown Completed [facility] TDAP Unknown Completed [facility] Influenza High Dose Unknown Completed [facility] Influenza High Dose Unknown Completed [facility] Pneumococcal Polysaccharide, PPSV23 (PNEUMOVAX) Unknown Completed [facility] Influenza High Dose Unknown Completed [facility] Influenza High Dose Unknown Completed [facility] Influenza Virus Vaccine Unknown Completed [facility] Influenza Virus Vaccine Unknown Completed [facility] Influenza Virus Vaccine Unknown Completed [facility] Pneumococcal Polysaccharide, PPSV23 (PNEUMOVAX) Unknown Completed [facility] Pneumococcal Polysaccharide, PPSV23 (PNEUMOVAX) Unknown Completed [facility] SARS-COV-2 COVID-19 UNSPECIFIED VACCINE Unknown Completed [facility] SARS-COV-2 COVID-19 UNSPECIFIED VACCINE Unknown Completed [facility] Influenza Virus Vaccine Quad IM Multi-dose 6+ MO Unknown Completed [facility] Pneumococcal Polysaccharide, PPSV23 (PNEUMOVAX) Unknown Completed [facility] Influenza Virus Vaccine,quad Im,preserve Free 65+ (FLUAD) Unknown Completed [facility] SARS-COV-2 COVID-19 VACCINE - (MODERNA) Unknown Completed [facility] SARS-COV-2 COVID-19 VACCINE - (MODERNA) Unknown Completed [facility] Pneumococcal Polysaccharide, PPSV23 (PNEUMOVAX) Unknown Completed [facility] Pneumococcal Polysaccharide, PPSV23 (PNEUMOVAX) Unknown Completed [facility] Pneumococcal 13 Conjugate, PCV13 (Prevnar 13) Unknown Completed [facility] TDAP Unknown Completed [facility] Influenza High Dose Unknown Completed [facility] Influenza High Dose Unknown Completed [facility] Pneumococcal Polysaccharide, PPSV23 (PNEUMOVAX) Unknown Completed [facility] Influenza High Dose Unknown Completed [facility] Influenza High Dose Unknown Completed [facility] Influenza Virus Vaccine Unknown Completed [facility] Influenza Virus Vaccine Unknown Completed [facility] Influenza Virus Vaccine Unknown Completed [facility] Pneumococcal Polysaccharide, PPSV23 (PNEUMOVAX) Unknown Completed [facility] Pneumococcal Polysaccharide, PPSV23 (PNEUMOVAX) Unknown Completed [facility] SARS-COV-2 COVID-19 UNSPECIFIED VACCINE Unknown Completed [facility] SARS-COV-2 COVID-19 UNSPECIFIED VACCINE Unknown Completed [facility] Influenza Virus Vaccine Quad IM Multi-dose 6+ MO Unknown Completed [facility] Pneumococcal Polysaccharide, PPSV23 (PNEUMOVAX) Unknown Completed [facility] Influenza Virus Vaccine,quad Im,preserve Free 65+ (FLUAD) Unknown Completed [facility] SARS-COV-2 COVID-19 VACCINE - (MODERNA) Unknown Completed [facility] SARS-COV-2 COVID-19 VACCINE - (MODERNA) Unknown Completed [facility] Pneumococcal Polysaccharide, PPSV23 (PNEUMOVAX) Unknown Completed [facility] Pneumococcal Polysaccharide, PPSV23 (PNEUMOVAX) Unknown Completed [facility] Pneumococcal 13 Conjugate, PCV13 (Prevnar 13) Unknown Completed [facility] TDAP Unknown Completed [facility] Influenza High Dose Unknown Completed [facility] Influenza High Dose Unknown Completed [facility] Pneumococcal Polysaccharide, PPSV23 (PNEUMOVAX) Unknown Completed [facility] Influenza High Dose Unknown Completed [facility] Influenza High Dose Unknown Completed [facility] Influenza Virus Vaccine Unknown Completed [facility] Influenza Virus Vaccine Unknown Completed [facility] Influenza Virus Vaccine Unknown Completed [facility] Pneumococcal Polysaccharide, PPSV23 (PNEUMOVAX) Unknown Completed [facility] Pneumococcal Polysaccharide, PPSV23 (PNEUMOVAX) Unknown Completed [facility] SARS-COV-2 COVID-19 UNSPECIFIED VACCINE Unknown Completed [facility] SARS-COV-2 COVID-19 UNSPECIFIED VACCINE Unknown Completed [facility] Influenza Virus Vaccine Quad IM Multi-dose 6+ MO Unknown Completed [facility] Pneumococcal Polysaccharide, PPSV23 (PNEUMOVAX) Unknown Completed [facility] Influenza Virus Vaccine,quad Im,preserve Free 65+ (FLUAD) Unknown Completed [facility] SARS-COV-2 COVID-19 VACCINE - (MODERNA) Unknown Completed [facility] SARS-COV-2 COVID-19 VACCINE - (MODERNA) Unknown Completed [facility] Pneumococcal Polysaccharide, PPSV23 (PNEUMOVAX) Unknown Completed [facility] Pneumococcal Polysaccharide, PPSV23 (PNEUMOVAX) Unknown Completed [facility] Pneumococcal 13 Conjugate, PCV13 (Prevnar 13) Unknown Completed [facility] TDAP Unknown Completed [facility] Influenza High Dose Unknown Completed [facility] Influenza High Dose Unknown Completed [facility] Pneumococcal Polysaccharide, PPSV23 (PNEUMOVAX) Unknown Completed [facility] Influenza High Dose Unknown Completed [facility] Influenza High Dose Unknown Completed [facility] Influenza Virus Vaccine Unknown Completed [facility] Influenza Virus Vaccine Unknown Completed [facility] Influenza Virus Vaccine Unknown Completed [facility] Pneumococcal Polysaccharide, PPSV23 (PNEUMOVAX) Unknown Completed [facility] Pneumococcal Polysaccharide, PPSV23 (PNEUMOVAX) Unknown Completed [facility] SARS-COV-2 COVID-19 UNSPECIFIED VACCINE Unknown Completed [facility] SARS-COV-2 COVID-19 UNSPECIFIED VACCINE Unknown Completed [facility] Influenza Virus Vaccine Quad IM Multi-dose 6+ MO Unknown Completed [facility] Pneumococcal Polysaccharide, PPSV23 (PNEUMOVAX) Unknown Completed [facility] Influenza Virus Vaccine,quad Im,preserve Free 65+ (FLUAD) Unknown Completed [facility] SARS-COV-2 COVID-19 VACCINE - (MODERNA) Unknown Completed [facility] SARS-COV-2 COVID-19 VACCINE - (MODERNA) Unknown Completed [facility] Pneumococcal Polysaccharide, PPSV23 (PNEUMOVAX) Unknown Completed [facility] Pneumococcal Polysaccharide, PPSV23 (PNEUMOVAX) Unknown Completed [facility] Pneumococcal 13 Conjugate, PCV13 (Prevnar 13) Unknown Completed [facility] TDAP Unknown Completed [facility] Influenza High Dose Unknown Completed [facility] Influenza High Dose Unknown Completed [facility] Pneumococcal Polysaccharide, PPSV23 (PNEUMOVAX) Unknown Completed [facility] Influenza High Dose Unknown Completed [facility] Influenza High Dose Unknown Completed [facility] Influenza Virus Vaccine Unknown Completed [facility] Influenza Virus Vaccine Unknown Completed [facility] Influenza Virus Vaccine Unknown Completed [facility] Pneumococcal Polysaccharide, PPSV23 (PNEUMOVAX) Unknown Completed [facility] Pneumococcal Polysaccharide, PPSV23 (PNEUMOVAX) Unknown Completed [facility] SARS-COV-2 COVID-19 UNSPECIFIED VACCINE Unknown Completed [facility] SARS-COV-2 COVID-19 UNSPECIFIED VACCINE Unknown Completed [facility] Influenza Virus Vaccine Quad IM Multi-dose 6+ MO Unknown Completed [facility] Pneumococcal Polysaccharide, PPSV23 (PNEUMOVAX) Unknown Completed [facility] Influenza Virus Vaccine,quad Im,preserve Free 65+ (FLUAD) Unknown Completed [facility] SARS-COV-2 COVID-19 VACCINE - (MODERNA) Unknown Completed [facility] SARS-COV-2 COVID-19 VACCINE - (MODERNA) Unknown Completed [facility] Pneumococcal Polysaccharide, PPSV23 (PNEUMOVAX) Unknown Completed [facility] Pneumococcal Polysaccharide, PPSV23 (PNEUMOVAX) Unknown Completed [facility] Pneumococcal 13 Conjugate, PCV13 (Prevnar 13) Unknown Completed [facility] TDAP Unknown Completed [facility] Influenza High Dose Unknown Completed [facility] Influenza High Dose Unknown Completed [facility] Pneumococcal Polysaccharide, PPSV23 (PNEUMOVAX) Unknown Completed [facility] Influenza High Dose Unknown Completed [facility] Influenza High Dose Unknown Completed [facility] Influenza Virus Vaccine Unknown Completed [facility] Influenza Virus Vaccine Unknown Completed [facility] Influenza Virus Vaccine Unknown Completed [facility] Pneumococcal Polysaccharide, PPSV23 (PNEUMOVAX) Unknown Completed [facility] Pneumococcal Polysaccharide, PPSV23 (PNEUMOVAX) Unknown Completed [facility] SARS-COV-2 COVID-19 UNSPECIFIED VACCINE Unknown Completed [facility] SARS-COV-2 COVID-19 UNSPECIFIED VACCINE Unknown Completed [facility] Influenza Virus Vaccine Quad IM Multi-dose 6+ MO Unknown Completed [facility] Pneumococcal Polysaccharide, PPSV23 (PNEUMOVAX) Unknown Completed [facility] Influenza Virus Vaccine,quad Im,preserve Free 65+ (FLUAD) Unknown Completed [facility] SARS-COV-2 COVID-19 VACCINE - (MODERNA) Unknown Completed [facility] SARS-COV-2 COVID-19 VACCINE - (MODERNA) Unknown Completed [facility] Pneumococcal Polysaccharide, PPSV23 (PNEUMOVAX) Unknown Completed [facility] Pneumococcal Polysaccharide, PPSV23 (PNEUMOVAX) Unknown Completed [facility] Pneumococcal 13 Conjugate, PCV13 (Prevnar 13) Unknown Completed [facility] TDAP Unknown Completed [facility] Influenza High Dose Unknown Completed [facility] Influenza High Dose Unknown Completed [facility] Pneumococcal Polysaccharide, PPSV23 (PNEUMOVAX) Unknown Completed [facility] Influenza High Dose Unknown Completed [facility] Influenza High Dose Unknown Completed [facility] Influenza Virus Vaccine Unknown Completed [facility] Influenza Virus Vaccine Unknown Completed [facility] Influenza Virus Vaccine Unknown Completed [facility] Pneumococcal Polysaccharide, PPSV23 (PNEUMOVAX) Unknown Completed [facility] Pneumococcal Polysaccharide, PPSV23 (PNEUMOVAX) Unknown Completed [facility] SARS-COV-2 COVID-19 UNSPECIFIED VACCINE Unknown Completed [facility] SARS-COV-2 COVID-19 UNSPECIFIED VACCINE Unknown Completed [facility] Influenza Virus Vaccine Quad IM Multi-dose 6+ MO Unknown Completed [facility] Pneumococcal Polysaccharide, PPSV23 (PNEUMOVAX) Unknown Completed [facility] Influenza Virus Vaccine,quad Im,preserve Free 65+ (FLUAD) Unknown Completed [facility] SARS-COV-2 COVID-19 VACCINE - (MODERNA) Unknown Completed [facility] SARS-COV-2 COVID-19 VACCINE - (MODERNA) Unknown Completed [facility] Pneumococcal Polysaccharide, PPSV23 (PNEUMOVAX) Unknown Completed [facility] Pneumococcal Polysaccharide, PPSV23 (PNEUMOVAX) Unknown Completed [facility] Pneumococcal 13 Conjugate, PCV13 (Prevnar 13) Unknown Completed [facility] TDAP Unknown Completed [facility] Influenza High Dose Unknown Completed [facility] Influenza High Dose Unknown Completed [facility] Pneumococcal Polysaccharide, PPSV23 (PNEUMOVAX) Unknown Completed [facility] Influenza High Dose Unknown Completed [facility] Influenza High Dose Unknown Completed [facility] Influenza Virus Vaccine Unknown Completed [facility] Influenza Virus Vaccine Unknown Completed [facility] Influenza Virus Vaccine Unknown Completed [facility] Pneumococcal Polysaccharide, PPSV23 (PNEUMOVAX) Unknown Completed [facility] Pneumococcal Polysaccharide, PPSV23 (PNEUMOVAX) Unknown Completed [facility] SARS-COV-2 COVID-19 UNSPECIFIED VACCINE Unknown Completed [facility] SARS-COV-2 COVID-19 UNSPECIFIED VACCINE Unknown Completed [facility] Influenza Virus Vaccine Quad IM Multi-dose 6+ MO Unknown Completed [facility] Pneumococcal Polysaccharide, PPSV23 (PNEUMOVAX) Unknown Completed [facility] Influenza Virus Vaccine,quad Im,preserve Free 65+ (FLUAD) Unknown Completed [facility] SARS-COV-2 COVID-19 VACCINE - (MODERNA) Unknown Completed [facility] SARS-COV-2 COVID-19 VACCINE - (MODERNA) Unknown Completed [facility] Pneumococcal Polysaccharide, PPSV23 (PNEUMOVAX) Unknown Completed [facility] Pneumococcal Polysaccharide, PPSV23 (PNEUMOVAX) Unknown Completed [facility] Pneumococcal 13 Conjugate, PCV13 (Prevnar 13) Unknown Completed [facility] TDAP Unknown Completed [facility] Influenza High Dose Unknown Completed [facility] Influenza High Dose Unknown Completed [facility] Pneumococcal Polysaccharide, PPSV23 (PNEUMOVAX) Unknown Completed [facility] Influenza High Dose Unknown Completed [facility] Influenza High Dose Unknown Completed [facility] Influenza Virus Vaccine Unknown Completed [facility] Influenza Virus Vaccine Unknown Completed [facility] Influenza Virus Vaccine Unknown Completed [facility] Pneumococcal Polysaccharide, PPSV23 (PNEUMOVAX) Unknown Completed [facility] Pneumococcal Polysaccharide, PPSV23 (PNEUMOVAX) Unknown Completed [facility] SARS-COV-2 COVID-19 UNSPECIFIED VACCINE Unknown Completed [facility] SARS-COV-2 COVID-19 UNSPECIFIED VACCINE Unknown Completed [facility] Influenza Virus Vaccine Quad IM Multi-dose 6+ MO Unknown Completed [facility] Pneumococcal Polysaccharide, PPSV23 (PNEUMOVAX) Unknown Completed [facility] Influenza Virus Vaccine,quad Im,preserve Free 65+ (FLUAD) Unknown Completed [facility] SARS-COV-2 COVID-19 VACCINE - (MODERNA) Unknown Completed [facility] SARS-COV-2 COVID-19 VACCINE - (MODERNA) Unknown Completed [facility] Pneumococcal Polysaccharide, PPSV23 (PNEUMOVAX) Unknown Completed [facility] Pneumococcal Polysaccharide, PPSV23 (PNEUMOVAX) Unknown Completed [facility] Pneumococcal 13 Conjugate, PCV13 (Prevnar 13) Unknown Completed [facility] TDAP Unknown Completed [facility] Influenza High Dose Unknown Completed [facility] Influenza High Dose Unknown Completed [facility] Pneumococcal Polysaccharide, PPSV23 (PNEUMOVAX) Unknown Completed [facility] Influenza High Dose Unknown Completed [facility] Influenza High Dose Unknown Completed [facility] Influenza Virus Vaccine Unknown Completed [facility] Influenza Virus Vaccine Unknown Completed [facility] Influenza Virus Vaccine Unknown Completed [facility] Pneumococcal Polysaccharide, PPSV23 (PNEUMOVAX) Unknown Completed [facility] Pneumococcal Polysaccharide, PPSV23 (PNEUMOVAX) Unknown Completed [facility] SARS-COV-2 COVID-19 UNSPECIFIED VACCINE Unknown Completed [facility] SARS-COV-2 COVID-19 UNSPECIFIED VACCINE Unknown Completed [facility] Influenza Virus Vaccine Quad IM Multi-dose 6+ MO Unknown Completed [facility] Pneumococcal Polysaccharide, PPSV23 (PNEUMOVAX) Unknown Completed [facility] Influenza Virus Vaccine,quad Im,preserve Free 65+ (FLUAD) Unknown Completed [facility] SARS-COV-2 COVID-19 VACCINE - (MODERNA) Unknown Completed [facility] SARS-COV-2 COVID-19 VACCINE - (MODERNA) Unknown Completed [facility] Pneumococcal Polysaccharide, PPSV23 (PNEUMOVAX) Unknown Completed [facility] Pneumococcal Polysaccharide, PPSV23 (PNEUMOVAX) Unknown Completed [facility] Pneumococcal 13 Conjugate, PCV13 (Prevnar 13) Unknown Completed [facility] TDAP Unknown Completed [facility] Influenza High Dose Unknown Completed [facility] Influenza High Dose Unknown Completed [facility] Pneumococcal Polysaccharide, PPSV23 (PNEUMOVAX) Unknown Completed [facility] Influenza High Dose Unknown Completed [facility] Influenza High Dose Unknown Completed [facility] Influenza Virus Vaccine Unknown Completed [facility] Influenza Virus Vaccine Unknown Completed [facility] Influenza Virus Vaccine Unknown Completed [facility] Pneumococcal Polysaccharide, PPSV23 (PNEUMOVAX) Unknown Completed [facility] Pneumococcal Polysaccharide, PPSV23 (PNEUMOVAX) Unknown Completed [facility] SARS-COV-2 COVID-19 UNSPECIFIED VACCINE Unknown Completed [facility] SARS-COV-2 COVID-19 UNSPECIFIED VACCINE Unknown Completed [facility] Influenza Virus Vaccine Quad IM Multi-dose 6+ MO Unknown Completed [facility] Pneumococcal Polysaccharide, PPSV23 (PNEUMOVAX) Unknown Completed [facility] Influenza Virus Vaccine,quad Im,preserve Free 65+ (FLUAD) Unknown Completed [facility] SARS-COV-2 COVID-19 VACCINE - (MODERNA) Unknown Completed [facility] SARS-COV-2 COVID-19 VACCINE - (MODERNA) Unknown Completed [facility] Pneumococcal Polysaccharide, PPSV23 (PNEUMOVAX) Unknown Completed [facility] Pneumococcal Polysaccharide, PPSV23 (PNEUMOVAX) Unknown Completed [facility] Pneumococcal 13 Conjugate, PCV13 (Prevnar 13) Unknown Completed [facility] TDAP Unknown Completed [facility] Influenza High Dose Unknown Completed [facility] Influenza High Dose Unknown Completed [facility] Pneumococcal Polysaccharide, PPSV23 (PNEUMOVAX) Unknown Completed [facility] Influenza High Dose Unknown Completed [facility] Influenza High Dose Unknown Completed [facility] Influenza Virus Vaccine Unknown Completed [facility] Influenza Virus Vaccine Unknown Completed [facility] Influenza Virus Vaccine Unknown Completed [facility] Pneumococcal Polysaccharide, PPSV23 (PNEUMOVAX) Unknown Completed [facility] Pneumococcal Polysaccharide, PPSV23 (PNEUMOVAX) Unknown Completed [facility] SARS-COV-2 COVID-19 UNSPECIFIED VACCINE Unknown Completed [facility] SARS-COV-2 COVID-19 UNSPECIFIED VACCINE Unknown Completed [facility] Influenza Virus Vaccine Quad IM Multi-dose 6+ MO Unknown Completed [facility] Pneumococcal Polysaccharide, PPSV23 (PNEUMOVAX) Unknown Completed [facility] Influenza Virus Vaccine,quad Im,preserve Free 65+ (FLUAD) Unknown Completed [facility] SARS-COV-2 COVID-19 VACCINE - (MODERNA) Unknown Completed [facility] SARS-COV-2 COVID-19 VACCINE - (MODERNA) Unknown Completed [facility] Pneumococcal Polysaccharide, PPSV23 (PNEUMOVAX) Unknown Completed [facility] Pneumococcal Polysaccharide, PPSV23 (PNEUMOVAX) Unknown Completed [facility] Pneumococcal 13 Conjugate, PCV13 (Prevnar 13) Unknown Completed [facility] TDAP Unknown Completed [facility] Influenza High Dose Unknown Completed [facility] Influenza High Dose Unknown Completed [facility] Pneumococcal Polysaccharide, PPSV23 (PNEUMOVAX) Unknown Completed [facility] Influenza High Dose Unknown Completed [facility] Influenza High Dose Unknown Completed [facility] Influenza Virus Vaccine Unknown Completed [facility] Influenza Virus Vaccine Unknown Completed [facility] Influenza Virus Vaccine Unknown Completed [facility] Pneumococcal Polysaccharide, PPSV23 (PNEUMOVAX) Unknown Completed [facility] Pneumococcal Polysaccharide, PPSV23 (PNEUMOVAX) Unknown Completed [facility] SARS-COV-2 COVID-19 UNSPECIFIED VACCINE Unknown Completed [facility] SARS-COV-2 COVID-19 UNSPECIFIED VACCINE Unknown Completed [facility] Influenza Virus Vaccine Quad IM Multi-dose 6+ MO Unknown Completed [facility] Pneumococcal Polysaccharide, PPSV23 (PNEUMOVAX) Unknown Completed [facility] Influenza Virus Vaccine,quad Im,preserve Free 65+ (FLUAD) Unknown Completed [facility] SARS-COV-2 COVID-19 VACCINE - (MODERNA) Unknown Completed [facility] SARS-COV-2 COVID-19 VACCINE - (MODERNA) Unknown Completed [facility] Pneumococcal Polysaccharide, PPSV23 (PNEUMOVAX) Unknown Completed [facility] Pneumococcal Polysaccharide, PPSV23 (PNEUMOVAX) Unknown Completed [facility] Pneumococcal 13 Conjugate, PCV13 (Prevnar 13) Unknown Completed [facility] TDAP Unknown Completed [facility] Influenza High Dose Unknown Completed [facility] Influenza High Dose Unknown Completed [facility] Pneumococcal Polysaccharide, PPSV23 (PNEUMOVAX) Unknown Completed [facility] Influenza High Dose Unknown Completed [facility] Influenza High Dose Unknown Completed [facility] Influenza Virus Vaccine Unknown Completed [facility] Influenza Virus Vaccine Unknown Completed [facility] Influenza Virus Vaccine Unknown Completed [facility] Pneumococcal Polysaccharide, PPSV23 (PNEUMOVAX) Unknown Completed [facility] Pneumococcal Polysaccharide, PPSV23 (PNEUMOVAX) Unknown Completed [facility] SARS-COV-2 COVID-19 UNSPECIFIED VACCINE Unknown Completed [facility] SARS-COV-2 COVID-19 UNSPECIFIED VACCINE Unknown Completed [facility] Influenza Virus Vaccine Quad IM Multi-dose 6+ MO Unknown Completed [facility] Pneumococcal Polysaccharide, PPSV23 (PNEUMOVAX) Unknown Completed [facility] Influenza Virus Vaccine,quad Im,preserve Free 65+ (FLUAD) Unknown Completed [facility] SARS-COV-2 COVID-19 VACCINE - (MODERNA) Unknown Completed [facility] SARS-COV-2 COVID-19 VACCINE - (MODERNA) Unknown Completed [facility] Pneumococcal Polysaccharide, PPSV23 (PNEUMOVAX) Unknown Completed [facility] Pneumococcal Polysaccharide, PPSV23 (PNEUMOVAX) Unknown Completed [facility] Pneumococcal 13 Conjugate, PCV13 (Prevnar 13) Unknown Completed [facility] TDAP Unknown Completed [facility] Influenza High Dose Unknown Completed [facility] Influenza High Dose Unknown Completed [facility] Pneumococcal Polysaccharide, PPSV23 (PNEUMOVAX) Unknown Completed [facility] Influenza High Dose Unknown Completed [facility] Influenza High Dose Unknown Completed [facility] Influenza Virus Vaccine Unknown Completed [facility] Influenza Virus Vaccine Unknown Completed [facility] Influenza Virus Vaccine Unknown Completed [facility] Pneumococcal Polysaccharide, PPSV23 (PNEUMOVAX) Unknown Completed [facility] Pneumococcal Polysaccharide, PPSV23 (PNEUMOVAX) Unknown Completed [facility] SARS-COV-2 COVID-19 UNSPECIFIED VACCINE Unknown Completed [facility] SARS-COV-2 COVID-19 UNSPECIFIED VACCINE Unknown Completed [facility] Influenza Virus Vaccine Quad IM Multi-dose 6+ MO Unknown Completed [facility] Pneumococcal Polysaccharide, PPSV23 (PNEUMOVAX) Unknown Completed [facility] Influenza Virus Vaccine,quad Im,preserve Free 65+ (FLUAD) Unknown Completed [facility] SARS-COV-2 COVID-19 VACCINE - (MODERNA) Unknown Completed [facility] SARS-COV-2 COVID-19 VACCINE - (MODERNA) Unknown Completed [facility] Pneumococcal Polysaccharide, PPSV23 (PNEUMOVAX) Unknown Completed [facility] Pneumococcal Polysaccharide, PPSV23 (PNEUMOVAX) Unknown Completed [facility] Pneumococcal 13 Conjugate, PCV13 (Prevnar 13) Unknown Completed [facility] TDAP Unknown Completed [facility] Influenza High Dose Unknown Completed [facility] Influenza High Dose Unknown Completed [facility] Pneumococcal Polysaccharide, PPSV23 (PNEUMOVAX) Unknown Completed [facility] Influenza High Dose Unknown Completed [facility] Influenza High Dose Unknown Completed [facility] Influenza Virus Vaccine Unknown Completed [facility] Influenza Virus Vaccine Unknown Completed [facility] Influenza Virus Vaccine Unknown Completed [facility] Pneumococcal Polysaccharide, PPSV23 (PNEUMOVAX) Unknown Completed [facility] Pneumococcal Polysaccharide, PPSV23 (PNEUMOVAX) Unknown Completed [facility] SARS-COV-2 COVID-19 UNSPECIFIED VACCINE Unknown Completed [facility] SARS-COV-2 COVID-19 UNSPECIFIED VACCINE Unknown Completed [facility] Influenza Virus Vaccine Quad IM Multi-dose 6+ MO Unknown Completed [facility] Pneumococcal Polysaccharide, PPSV23 (PNEUMOVAX) Unknown Completed [facility] Influenza Virus Vaccine,quad Im,preserve Free 65+ (FLUAD) Unknown Completed [facility] SARS-COV-2 COVID-19 VACCINE - (MODERNA) Unknown Completed [facility] SARS-COV-2 COVID-19 VACCINE - (MODERNA) Unknown Completed [facility] Pneumococcal Polysaccharide, PPSV23 (PNEUMOVAX) Unknown Completed [facility] Pneumococcal Polysaccharide, PPSV23 (PNEUMOVAX) Unknown Completed [facility] Pneumococcal 13 Conjugate, PCV13 (Prevnar 13) Unknown Completed [facility] TDAP Unknown Completed [facility] Influenza High Dose Unknown Completed [facility] Influenza High Dose Unknown Completed [facility] Pneumococcal Polysaccharide, PPSV23 (PNEUMOVAX) Unknown Completed [facility] Influenza High Dose Unknown Completed [facility] Influenza High Dose Unknown Completed [facility] Influenza Virus Vaccine Unknown Completed [facility] Influenza Virus Vaccine Unknown Completed [facility] Influenza Virus Vaccine Unknown Completed [facility] Pneumococcal Polysaccharide, PPSV23 (PNEUMOVAX) Unknown Completed [facility] Pneumococcal Polysaccharide, PPSV23 (PNEUMOVAX) Unknown Completed [facility] SARS-COV-2 COVID-19 UNSPECIFIED VACCINE Unknown Completed [facility] SARS-COV-2 COVID-19 UNSPECIFIED VACCINE Unknown Completed [facility] Influenza Virus Vaccine Quad IM Multi-dose 6+ MO Unknown Completed [facility] Pneumococcal Polysaccharide, PPSV23 (PNEUMOVAX) Unknown Completed [facility] Influenza Virus Vaccine,quad Im,preserve Free 65+ (FLUAD) Unknown Completed [facility] SARS-COV-2 COVID-19 VACCINE - (MODERNA) Unknown Completed [facility] SARS-COV-2 COVID-19 VACCINE - (MODERNA) Unknown Completed [facility] Pneumococcal Polysaccharide, PPSV23 (PNEUMOVAX) Unknown Completed [facility] Pneumococcal Polysaccharide, PPSV23 (PNEUMOVAX) Unknown Completed [facility] Pneumococcal 13 Conjugate, PCV13 (Prevnar 13) Unknown Completed [facility] TDAP Unknown Completed [facility] Influenza High Dose Unknown Completed [facility] Influenza High Dose Unknown Completed [facility] Pneumococcal Polysaccharide, PPSV23 (PNEUMOVAX) Unknown Completed [facility] Influenza High Dose Unknown Completed [facility] Influenza High Dose Unknown Completed [facility] Influenza Virus Vaccine Unknown Completed [facility] Influenza Virus Vaccine Unknown Completed [facility] Influenza Virus Vaccine Unknown Completed [facility] Pneumococcal Polysaccharide, PPSV23 (PNEUMOVAX) Unknown Completed [facility] Pneumococcal Polysaccharide, PPSV23 (PNEUMOVAX) Unknown Completed [facility] SARS-COV-2 COVID-19 UNSPECIFIED VACCINE Unknown Completed [facility] SARS-COV-2 COVID[facility]19 UNSPECIFIED VACCINE [facility] Quad IM Multi-dose 6+ MO Unknown Completed [facility] Pneumococcal Polysaccharide, PPSV23 (PNEUMOVAX) Unknown Completed [facility] Influenza Virus Vaccine,quad Im,preserve Free 65+ (FLUAD) Unknown Completed [facility] SARS-COV-2 COVID-19 VACCINE - (MODERNA) Unknown Completed [facility] SARS-COV-2 COVID-19 VACCINE - (MODERNA) Unknown Completed [facility] Pneumococcal Polysaccharide, PPSV23 (PNEUMOVAX) Unknown Completed [facility] Pneumococcal Polysaccharide, PPSV23 (PNEUMOVAX) Unknown Completed [facility] Pneumococcal 13 Conjugate, PCV13 (Prevnar 13) Unknown Completed [facility] TDAP Unknown Completed [facility] Influenza High Dose Unknown Completed [facility] Influenza High Dose Unknown Completed [facility] Pneumococcal Polysaccharide, PPSV23 (PNEUMOVAX) Unknown Completed [facility] Influenza High Dose Unknown Completed [facility] Influenza High Dose Unknown Completed [facility] Influenza Virus Vaccine Unknown Completed [facility] Influenza Virus Vaccine Unknown Completed [facility] Influenza Virus Vaccine Unknown Completed [facility] Pneumococcal Polysaccharide, PPSV23 (PNEUMOVAX) Unknown Completed [facility] Pneumococcal Polysaccharide, PPSV23 (PNEUMOVAX) Unknown Completed [facility] SARS-COV-2 COVID-19 UNSPECIFIED VACCINE Unknown Completed [facility] SARS-COV-2 COVID-19 UNSPECIFIED VACCINE Unknown Completed [facility] Influenza Virus Vaccine Quad IM Multi-dose 6+ MO Unknown Completed [facility] Pneumococcal Polysaccharide, PPSV23 (PNEUMOVAX) Unknown Completed [facility] Influenza Virus Vaccine,quad Im,preserve Free 65+ (FLUAD) Unknown Completed [facility] SARS-COV-2 COVID-19 VACCINE - (MODERNA) Unknown Completed [facility] SARS-COV-2 COVID-19 VACCINE - (MODERNA) Unknown Completed [facility] Pneumococcal Polysaccharide, PPSV23 (PNEUMOVAX) Unknown Completed [facility] Pneumococcal Polysaccharide, PPSV23 (PNEUMOVAX) Unknown Completed [facility] Pneumococcal 13 Conjugate, PCV13 (Prevnar 13) Unknown Completed [facility] TDAP Unknown Completed [facility] Influenza High Dose Unknown Completed [facility] Influenza High Dose Unknown Completed [facility] Pneumococcal Polysaccharide, PPSV23 (PNEUMOVAX) Unknown Completed [facility] Influenza High Dose Unknown Completed [facility] Influenza High Dose Unknown Completed [facility] Influenza Virus Vaccine Unknown Completed [facility] Influenza Virus Vaccine Unknown Completed [facility] Influenza Virus Vaccine Unknown Completed [facility] Pneumococcal Polysaccharide, PPSV23 (PNEUMOVAX) Unknown Completed [facility] Pneumococcal Polysaccharide, PPSV23 (PNEUMOVAX) Unknown Completed [facility] SARS-COV-2 COVID-19 UNSPECIFIED VACCINE Unknown Completed [facility] SARS-COV-2 COVID-19 UNSPECIFIED VACCINE Unknown Completed [facility] Influenza Virus Vaccine Quad IM Multi-dose 6+ MO Unknown Completed [facility] [facility] Pneumococcal Polysaccharide, PPSV23 (PNEUMOVAX) Unknown Completed [facility] Influenza Virus Vaccine,quad Im,preserve Free 65+ (FLUAD) Unknown Completed [facility] SARS-COV-2 COVID-19 VACCINE - (MODERNA) Unknown Completed [facility] SARS-COV-2 COVID-19 VACCINE - (MODERNA) Unknown Completed [facility] Pneumococcal Polysaccharide, PPSV23 (PNEUMOVAX) Unknown Completed [facility] Pneumococcal Polysaccharide, PPSV23 (PNEUMOVAX) Unknown Completed [facility] Pneumococcal 13 Conjugate, PCV13 (Prevnar 13) Unknown Completed [facility] TDAP Unknown Completed [facility] Influenza High Dose Unknown Completed [facility] Influenza High Dose Unknown Completed [facility] Pneumococcal Polysaccharide, PPSV23 (PNEUMOVAX) Unknown Completed [facility] Influenza High Dose Unknown Completed [facility] Influenza High Dose Unknown Completed [facility] Influenza Virus Vaccine Unknown Completed [facility] Influenza Virus Vaccine Unknown Completed [facility] Influenza Virus Vaccine Unknown Completed [facility] Pneumococcal Polysaccharide, PPSV23 (PNEUMOVAX) Unknown Completed [facility] Pneumococcal Polysaccharide, PPSV23 (PNEUMOVAX) Unknown Completed [facility] SARS-COV-2 COVID-19 UNSPECIFIED VACCINE Unknown Completed [facility] SARS-COV-2 COVID-19 UNSPECIFIED VACCINE Unknown Completed [facility] Influenza Virus Vaccine Quad IM Multi-dose 6+ MO Unknown Completed [facility] Pneumococcal Polysaccharide, PPSV23 (PNEUMOVAX) Unknown Completed [facility] Influenza Virus Vaccine,quad Im,preserve Free 65+ (FLUAD) Unknown Completed [facility] SARS-COV-2 COVID-19 VACCINE - (MODERNA) Unknown Completed [facility] SARS-COV-2 COVID-19 VACCINE - (MODERNA) Unknown Completed [facility] Pneumococcal Polysaccharide, PPSV23 (PNEUMOVAX) Unknown Completed [facility] Pneumococcal Polysaccharide, PPSV23 (PNEUMOVAX) Unknown Completed [facility] Pneumococcal 13 Conjugate, PCV13 (Prevnar 13) Unknown Completed [facility] TDAP Unknown Completed [facility] Influenza High Dose Unknown Completed [facility] Influenza High Dose Unknown Completed [facility] Pneumococcal Polysaccharide, PPSV23 (PNEUMOVAX) Unknown Completed [facility] Influenza High Dose Unknown Completed [facility] Influenza High Dose Unknown Completed [facility] Influenza Virus Vaccine Unknown Completed [facility] Influenza Virus Vaccine Unknown Completed [facility] Influenza Virus Vaccine Unknown Completed [facility] Pneumococcal Polysaccharide, PPSV23 (PNEUMOVAX) Unknown Completed [facility] Pneumococcal Polysaccharide, PPSV23 (PNEUMOVAX) Unknown Completed [facility] SARS-COV-2 COVID-19 UNSPECIFIED VACCINE Unknown Completed [facility] SARS-COV-2 COVID-19 UNSPECIFIED VACCINE Unknown Completed [facility] Influenza Virus Vaccine Quad IM Multi-dose 6+ MO Unknown Completed [facility] Pneumococcal Polysaccharide, PPSV23 (PNEUMOVAX) Unknown Completed [facility] Influenza Virus Vaccine,quad Im,preserve Free 65+ (FLUAD) Unknown Completed [facility] SARS-COV-2 COVID-19 VACCINE - (MODERNA) Unknown Completed [facility] SARS-COV-2 COVID-19 VACCINE - (MODERNA) Unknown Completed [facility] Pneumococcal Polysaccharide, PPSV23 (PNEUMOVAX) Unknown Completed [facility] Pneumococcal Polysaccharide, PPSV23 (PNEUMOVAX) Unknown Completed [facility] Pneumococcal 13 Conjugate, PCV13 (Prevnar 13) Unknown Completed [facility] TDAP Unknown Completed [facility] Influenza High Dose Unknown Completed [facility] Influenza High Dose Unknown Completed [facility] Pneumococcal Polysaccharide, PPSV23 (PNEUMOVAX) Unknown Completed [facility] Influenza High Dose Unknown Completed [facility] Influenza High Dose Unknown Completed [facility] Influenza Virus Vaccine Unknown Completed [facility] Influenza Virus Vaccine Unknown Completed [facility] Influenza Virus Vaccine Unknown Completed [facility] Pneumococcal Polysaccharide, PPSV23 (PNEUMOVAX) Unknown Completed [facility] Pneumococcal Polysaccharide, PPSV23 (PNEUMOVAX) Unknown Completed [facility] SARS-COV-2 COVID-19 UNSPECIFIED VACCINE Unknown Completed [facility] SARS-COV-2 COVID-19 UNSPECIFIED VACCINE Unknown Completed [facility] Influenza Virus Vaccine Quad IM Multi-dose 6+ MO Unknown Completed [facility] Pneumococcal Polysaccharide, PPSV23 (PNEUMOVAX) Unknown Completed [facility] Influenza Virus Vaccine,quad Im,preserve Free 65+ (FLUAD) Unknown Completed [facility] SARS-COV-2 COVID-19 VACCINE - (MODERNA) Unknown Completed [facility] SARS-COV-2 COVID-19 VACCINE - (MODERNA) Unknown Completed [facility] Pneumococcal Polysaccharide, PPSV23 (PNEUMOVAX) Unknown Completed [facility] Pneumococcal Polysaccharide, PPSV23 (PNEUMOVAX) Unknown Completed [facility] Pneumococcal 13 Conjugate, PCV13 (Prevnar 13) Unknown Completed [facility] TDAP Unknown Completed [facility] Influenza High Dose Unknown Completed [facility] Influenza High Dose Unknown Completed [facility] Pneumococcal Polysaccharide, PPSV23 (PNEUMOVAX) Unknown Completed [facility] Influenza High Dose Unknown Completed [facility] Influenza High Dose Unknown Completed [facility] Influenza Virus Vaccine Unknown Completed [facility] Influenza Virus Vaccine Unknown Completed [facility] Influenza Virus Vaccine Unknown Completed [facility] Pneumococcal Polysaccharide, PPSV23 (PNEUMOVAX) Unknown Completed [facility] Pneumococcal Polysaccharide, PPSV23 (PNEUMOVAX) Unknown Completed [facility] SARS-COV-2 COVID-19 UNSPECIFIED VACCINE Unknown Completed [facility] SARS-COV-2 COVID-19 UNSPECIFIED VACCINE Unknown Completed [facility] Influenza Virus Vaccine Quad IM Multi-dose 6+ MO Unknown Completed [facility] Pneumococcal Polysaccharide, PPSV23 (PNEUMOVAX) Unknown Completed [facility] Influenza Virus Vaccine,quad Im,preserve Free 65+ (FLUAD) Unknown Completed [facility] SARS-COV-2 COVID-19 VACCINE - (MODERNA) Unknown Completed [facility] SARS-COV-2 COVID-19 VACCINE - (MODERNA) Unknown Completed [facility] Pneumococcal Polysaccharide, PPSV23 (PNEUMOVAX) Unknown Completed [facility] Pneumococcal Polysaccharide, PPSV23 (PNEUMOVAX) Unknown Completed [facility] Pneumococcal 13 Conjugate, PCV13 (Prevnar 13) Unknown Completed [facility] TDAP Unknown Completed [facility] Influenza High Dose Unknown Completed [facility] Influenza High Dose Unknown Completed [facility] Pneumococcal Polysaccharide, PPSV23 (PNEUMOVAX) Unknown Completed [facility] Influenza High Dose Unknown Completed [facility] Influenza High Dose Unknown Completed [facility] Influenza Virus Vaccine Unknown Completed [facility] Influenza Virus Vaccine Unknown Completed [facility] Influenza Virus Vaccine Unknown Completed [facility] Pneumococcal Polysaccharide, PPSV23 (PNEUMOVAX) Unknown Completed [facility] Pneumococcal Polysaccharide, PPSV23 (PNEUMOVAX) Unknown Completed [facility] SARS-COV-2 COVID-19 UNSPECIFIED VACCINE Unknown Completed [facility] SARS-COV-2 COVID-19 UNSPECIFIED VACCINE Unknown Completed [facility] Influenza Virus Vaccine Quad IM Multi-dose 6+ MO Unknown Completed [facility] Pneumococcal Polysaccharide, PPSV23 (PNEUMOVAX) Unknown Completed [facility] Influenza Virus Vaccine,quad Im,preserve Free 65+ (FLUAD) Unknown Completed [facility] SARS-COV-2 COVID-19 VACCINE - (MODERNA) Unknown Completed [facility] SARS-COV-2 COVID-19 VACCINE - (MODERNA) Unknown Completed [facility] Pneumococcal Polysaccharide, PPSV23 (PNEUMOVAX) Unknown Completed [facility] Pneumococcal Polysaccharide, PPSV23 (PNEUMOVAX) Unknown Completed [facility] Pneumococcal 13 Conjugate, PCV13 (Prevnar 13) Unknown Completed [facility] TDAP Unknown Completed [facility] Influenza High Dose Unknown Completed [facility] Influenza High Dose Unknown Completed [facility] Pneumococcal Polysaccharide, PPSV23 (PNEUMOVAX) Unknown Completed [facility] Influenza High Dose Unknown Completed [facility] Influenza High Dose Unknown Completed [facility] Influenza Virus Vaccine Unknown Completed [facility] Influenza Virus Vaccine Unknown Completed [facility] Influenza Virus Vaccine Unknown Completed [facility] Pneumococcal Polysaccharide, PPSV23 (PNEUMOVAX) Unknown Completed [facility] Pneumococcal Polysaccharide, PPSV23 (PNEUMOVAX) Unknown Completed [facility] SARS-COV-2 COVID-19 UNSPECIFIED VACCINE Unknown Completed [facility] SARS-COV-2 COVID-19 UNSPECIFIED VACCINE Unknown Completed [facility] Influenza Virus Vaccine Quad IM Multi-dose 6+ MO Unknown Completed [facility] Pneumococcal Polysaccharide, PPSV23 (PNEUMOVAX) Unknown Completed [facility] Influenza Virus Vaccine,quad Im,preserve Free 65+ (FLUAD) Unknown Completed [facility] SARS-COV-2 COVID-19 VACCINE - (MODERNA) Unknown Completed [facility] SARS-COV-2 COVID-19 VACCINE - (MODERNA) Unknown Completed [facility] Pneumococcal Polysaccharide, PPSV23 (PNEUMOVAX) Unknown Completed [facility] Pneumococcal Polysaccharide, PPSV23 (PNEUMOVAX) Unknown Completed [facility] Pneumococcal 13 Conjugate, PCV13 (Prevnar 13) Unknown Completed [facility] TDAP Unknown Completed [facility] Influenza High Dose Unknown Completed [facility] Influenza High Dose Unknown Completed [facility] Pneumococcal Polysaccharide, PPSV23 (PNEUMOVAX) Unknown Completed [facility] Influenza High Dose Unknown Completed [facility] Influenza High Dose Unknown Completed [facility] Influenza Virus Vaccine Unknown Completed [facility] Influenza Virus Vaccine Unknown Completed [facility] Influenza Virus Vaccine Unknown Completed [facility] Pneumococcal Polysaccharide, PPSV23 (PNEUMOVAX) Unknown Completed [facility] Pneumococcal Polysaccharide, PPSV23 (PNEUMOVAX) Unknown Completed [facility] SARS-COV-2 COVID-19 UNSPECIFIED VACCINE Unknown Completed [facility] SARS-COV-2 COVID-19 UNSPECIFIED VACCINE Unknown Completed [facility] Influenza Virus Vaccine Quad IM Multi-dose 6+ MO Unknown Completed [facility] Pneumococcal Polysaccharide, PPSV23 (PNEUMOVAX) Unknown Completed [facility] Influenza Virus Vaccine,quad Im,preserve Free 65+ (FLUAD) Unknown Completed [facility] SARS-COV-2 COVID-19 VACCINE - (MODERNA) Unknown Completed [facility] SARS-COV-2 COVID-19 VACCINE - (MODERNA) Unknown Completed [facility] Pneumococcal Polysaccharide, PPSV23 (PNEUMOVAX) Unknown Completed [facility] Pneumococcal Polysaccharide, PPSV23 (PNEUMOVAX) Unknown Completed [facility] Pneumococcal 13 Conjugate, PCV13 (Prevnar 13) Unknown Completed [facility] TDAP Unknown Completed [facility] Influenza High Dose Unknown Completed [facility] Influenza High Dose Unknown Completed [facility] Pneumococcal Polysaccharide, PPSV23 (PNEUMOVAX) Unknown Completed [facility] Influenza High Dose Unknown Completed [facility] Influenza High Dose Unknown Completed [facility] Influenza Virus Vaccine Unknown Completed [facility] Influenza Virus Vaccine Unknown Completed [facility] Influenza Virus Vaccine Unknown Completed [facility] Pneumococcal Polysaccharide, PPSV23 (PNEUMOVAX) Unknown Completed [facility] Pneumococcal Polysaccharide, PPSV23 (PNEUMOVAX) Unknown Completed [facility] SARS-COV-2 COVID-19 UNSPECIFIED VACCINE Unknown Completed [facility] SARS-COV-2 COVID-19 UNSPECIFIED VACCINE Unknown Completed [facility] Influenza Virus Vaccine Quad IM Multi-dose 6+ MO Unknown Completed [facility] Pneumococcal Polysaccharide, PPSV23 (PNEUMOVAX) Unknown Completed [facility] Influenza Virus Vaccine,quad Im,preserve Free 65+ (FLUAD) Unknown Completed [facility] SARS-COV-2 COVID-19 VACCINE - (MODERNA) Unknown Completed [facility] SARS-COV-2 COVID-19 VACCINE - (MODERNA) Unknown Completed [facility] Pneumococcal Polysaccharide, PPSV23 (PNEUMOVAX) Unknown Completed [facility] Pneumococcal Polysaccharide, PPSV23 (PNEUMOVAX) Unknown Completed [facility] Pneumococcal 13 Conjugate, PCV13 (Prevnar 13) Unknown Completed [facility] TDAP Unknown Completed [facility] Influenza High Dose Unknown Completed [facility] Influenza High Dose Unknown Completed [facility] Pneumococcal Polysaccharide, PPSV23 (PNEUMOVAX) Unknown Completed [facility] Influenza High Dose Unknown Completed [facility] Influenza High Dose Unknown Completed [facility] Influenza Virus Vaccine Unknown Completed [facility] Influenza Virus Vaccine Unknown Completed [facility] Influenza Virus Vaccine Unknown Completed [facility] Pneumococcal Polysaccharide, PPSV23 (PNEUMOVAX) Unknown Completed [facility] Pneumococcal Polysaccharide, PPSV23 (PNEUMOVAX) Unknown Completed [facility] SARS-COV-2 COVID-19 UNSPECIFIED VACCINE Unknown Completed [facility] SARS-COV-2 COVID-19 UNSPECIFIED VACCINE Unknown Completed [facility] Influenza Virus Vaccine Quad IM Multi-dose 6+ MO Unknown Completed [facility] Pneumococcal Polysaccharide, PPSV23 (PNEUMOVAX) Unknown Completed [facility] Influenza Virus Vaccine,quad Im,preserve Free 65+ (FLUAD) Unknown Completed [facility] SARS-COV-2 COVID-19 VACCINE - (MODERNA) Unknown Completed [facility] SARS-COV-2 COVID-19 VACCINE - (MODERNA) Unknown Completed [facility] Pneumococcal Polysaccharide, PPSV23 (PNEUMOVAX) Unknown Completed [facility] Pneumococcal Polysaccharide, PPSV23 (PNEUMOVAX) Unknown Completed [facility] Pneumococcal 13 Conjugate, PCV13 (Prevnar 13) Unknown Completed [facility] TDAP Unknown Completed [facility] Influenza High Dose Unknown Completed [facility] Influenza High Dose Unknown Completed [facility] Pneumococcal Polysaccharide, PPSV23 (PNEUMOVAX) Unknown Completed [facility] Influenza High Dose Unknown Completed [facility] Influenza High Dose Unknown Completed [facility] Influenza Virus Vaccine Unknown Completed [facility] Influenza Virus Vaccine Unknown Completed [facility] Influenza Virus Vaccine Unknown Completed [facility] Pneumococcal Polysaccharide, PPSV23 (PNEUMOVAX) Unknown Completed [facility] Pneumococcal Polysaccharide, PPSV23 (PNEUMOVAX) Unknown Completed [facility] SARS-COV-2 COVID-19 UNSPECIFIED VACCINE Unknown Completed [facility] SARS-COV-2 COVID-19 UNSPECIFIED VACCINE Unknown Completed [facility] Influenza Virus Vaccine Quad IM Multi-dose 6+ MO Unknown Completed [facility] Pneumococcal Polysaccharide, PPSV23 (PNEUMOVAX) Unknown Completed [facility] Influenza Virus Vaccine,quad Im,preserve Free 65+ (FLUAD) Unknown Completed [facility] SARS-COV-2 COVID-19 VACCINE - (MODERNA) Unknown Completed [facility] SARS-COV-2 COVID-19 VACCINE - (MODERNA) Unknown Completed [facility] Pneumococcal Polysaccharide, PPSV23 (PNEUMOVAX) Unknown Completed [facility] Pneumococcal Polysaccharide, PPSV23 (PNEUMOVAX) Unknown Completed [facility] Pneumococcal 13 Conjugate, PCV13 (Prevnar 13) Unknown Completed [facility] TDAP Unknown Completed [facility] Influenza High Dose Unknown Completed [facility] Influenza High Dose Unknown Completed [facility] Pneumococcal Polysaccharide, PPSV23 (PNEUMOVAX) Unknown Completed [facility] Influenza High Dose Unknown Completed [facility] Influenza High Dose Unknown Completed [facility] Influenza Virus Vaccine Unknown Completed [facility] Influenza Virus Vaccine Unknown Completed [facility] Influenza Virus Vaccine Unknown Completed [facility] Pneumococcal Polysaccharide, PPSV23 (PNEUMOVAX) Unknown Completed [facility] Pneumococcal Polysaccharide, PPSV23 (PNEUMOVAX) Unknown Completed [facility] SARS-COV-2 COVID-19 UNSPECIFIED VACCINE Unknown Completed [facility] SARS-COV-2 COVID-19 UNSPECIFIED VACCINE Unknown Completed [facility] Influenza Virus Vaccine Quad IM Multi-dose 6+ MO Unknown Completed [facility] Pneumococcal Polysaccharide, PPSV23 (PNEUMOVAX) Unknown Completed [facility] Influenza Virus Vaccine,quad Im,preserve Free 65+ (FLUAD) Unknown Completed [facility] SARS-COV-2 COVID-19 VACCINE - (MODERNA) Unknown Completed [facility] SARS-COV-2 COVID-19 VACCINE - (MODERNA) Unknown Completed [facility] Pneumococcal Polysaccharide, PPSV23 (PNEUMOVAX) Unknown Completed [facility] Pneumococcal Polysaccharide, PPSV23 (PNEUMOVAX) Unknown Completed [facility] Pneumococcal 13 Conjugate, PCV13 (Prevnar 13) Unknown Completed [facility] TDAP Unknown Completed [facility] Influenza High Dose Unknown Completed [facility] Influenza High Dose Unknown Completed [facility] Pneumococcal Polysaccharide, PPSV23 (PNEUMOVAX) Unknown Completed [facility] Influenza High Dose Unknown Completed [facility] Influenza High Dose Unknown Completed [facility] Influenza Virus Vaccine Unknown Completed [facility] Influenza Virus Vaccine Unknown Completed [facility] Influenza Virus Vaccine Unknown Completed [facility] Pneumococcal Polysaccharide, PPSV23 (PNEUMOVAX) Unknown Completed [facility] Pneumococcal Polysaccharide, PPSV23 (PNEUMOVAX) Unknown Completed [facility] SARS-COV-2 COVID-19 UNSPECIFIED VACCINE Unknown Completed [facility] SARS-COV-2 COVID-19 UNSPECIFIED VACCINE Unknown Completed [facility] Influenza Virus Vaccine Quad IM Multi-dose 6+ MO Unknown Completed [facility] Pneumococcal Polysaccharide, PPSV23 (PNEUMOVAX) Unknown Completed [facility] Influenza Virus Vaccine,quad Im,preserve Free 65+ (FLUAD) Unknown Completed [facility] SARS-COV-2 COVID-19 VACCINE - (MODERNA) Unknown Completed [facility] SARS-COV-2 COVID-19 VACCINE - (MODERNA) Unknown Completed [facility] Pneumococcal Polysaccharide, PPSV23 (PNEUMOVAX) Unknown Completed [facility] Pneumococcal Polysaccharide, PPSV23 (PNEUMOVAX) Unknown Completed [facility] Pneumococcal 13 Conjugate, PCV13 (Prevnar 13) Unknown Completed [facility] TDAP Unknown Completed [facility] Influenza High Dose Unknown Completed [facility] Influenza High Dose Unknown Completed [facility] Pneumococcal Polysaccharide, PPSV23 (PNEUMOVAX) Unknown Completed [facility] Influenza High Dose Unknown Completed [facility] Influenza High Dose Unknown Completed [facility] Influenza Virus Vaccine Unknown Completed [facility] Influenza Virus Vaccine Unknown Completed [facility] Influenza Virus Vaccine Unknown Completed [facility] Pneumococcal Polysaccharide, PPSV23 (PNEUMOVAX) Unknown Completed [facility] Pneumococcal Polysaccharide, PPSV23 (PNEUMOVAX) Unknown Completed [facility] SARS-COV-2 COVID-19 UNSPECIFIED VACCINE Unknown Completed [facility] SARS-COV-2 COVID-19 UNSPECIFIED VACCINE Unknown Completed [facility] Influenza Virus Vaccine Quad IM Multi-dose 6+ MO Unknown Completed [facility] Pneumococcal Polysaccharide, PPSV23 (PNEUMOVAX) Unknown Completed [facility] Influenza Virus Vaccine,quad Im,preserve Free 65+ (FLUAD) Unknown Completed [facility] SARS-COV-2 COVID-19 VACCINE - (MODERNA) Unknown Completed [facility] SARS-COV-2 COVID-19 VACCINE - (MODERNA) Unknown Completed [facility] Pneumococcal Polysaccharide, PPSV23 (PNEUMOVAX) Unknown Completed [facility] Pneumococcal Polysaccharide, PPSV23 (PNEUMOVAX) Unknown Completed [facility] Pneumococcal 13 Conjugate, PCV13 (Prevnar 13) Unknown Completed [facility] TDAP Unknown Completed [facility] Influenza High Dose Unknown Completed [facility] Influenza High Dose Unknown Completed [facility] Pneumococcal Polysaccharide, PPSV23 (PNEUMOVAX) Unknown Completed [facility] Influenza High Dose Unknown Completed [facility] Influenza High Dose Unknown Completed [facility] Influenza Virus Vaccine Unknown Completed [facility] Influenza Virus Vaccine Unknown Completed [facility] Influenza Virus Vaccine Unknown Completed [facility] Pneumococcal Polysaccharide, PPSV23 (PNEUMOVAX) Unknown Completed [facility] Pneumococcal Polysaccharide, PPSV23 (PNEUMOVAX) Unknown Completed [facility] SARS-COV-2 COVID-19 UNSPECIFIED VACCINE Unknown Completed [facility] SARS-COV-2 COVID-19 UNSPECIFIED VACCINE Unknown Completed [facility] Influenza Virus Vaccine Quad IM Multi-dose 6+ MO Unknown Completed [facility] Pneumococcal Polysaccharide, PPSV23 (PNEUMOVAX) Unknown Completed [facility] Influenza Virus Vaccine,quad Im,preserve Free 65+ (FLUAD) Unknown Completed [facility] SARS-COV-2 COVID-19 VACCINE - (MODERNA) Unknown Completed [facility] SARS-COV-2 COVID-19 VACCINE - (MODERNA) Unknown Completed [facility] Pneumococcal Polysaccharide, PPSV23 (PNEUMOVAX) Unknown Completed [facility] Pneumococcal Polysaccharide, PPSV23 (PNEUMOVAX) Unknown Completed [facility] Pneumococcal 13 Conjugate, PCV13 (Prevnar 13) Unknown Completed [facility] TDAP Unknown Completed [facility] Influenza High Dose Unknown Completed [facility] Influenza High Dose Unknown Completed [facility] Pneumococcal Polysaccharide, PPSV23 (PNEUMOVAX) Unknown Completed [facility] Influenza High Dose Unknown Completed [facility] Influenza High Dose Unknown Completed [facility] Influenza Virus Vaccine Unknown Completed [facility] Influenza Virus Vaccine Unknown Completed [facility] Influenza Virus Vaccine Unknown Completed [facility] Pneumococcal Polysaccharide, PPSV23 (PNEUMOVAX) Unknown Completed [facility] Pneumococcal Polysaccharide, PPSV23 (PNEUMOVAX) Unknown Completed [facility] SARS-COV-2 COVID-19 UNSPECIFIED VACCINE Unknown Completed [facility] SARS-COV-2 COVID-19 UNSPECIFIED VACCINE Unknown Completed [facility] Influenza Virus Vaccine Quad IM Multi-dose 6+ MO Unknown Completed [facility] Pneumococcal Polysaccharide, PPSV23 (PNEUMOVAX) Unknown Completed [facility] Influenza Virus Vaccine,quad Im,preserve Free 65+ (FLUAD) Unknown Completed [facility] SARS-COV-2 COVID-19 VACCINE - (MODERNA) Unknown Completed [facility] SARS-COV-2 COVID-19 VACCINE - (MODERNA) Unknown Completed [facility] Pneumococcal Polysaccharide, PPSV23 (PNEUMOVAX) Unknown Completed [facility] Pneumococcal Polysaccharide, PPSV23 (PNEUMOVAX) Unknown Completed [facility] Pneumococcal 13 Conjugate, PCV13 (Prevnar 13) Unknown Completed [facility] TDAP Unknown Completed [facility] Influenza High Dose Unknown Completed [facility] Influenza High Dose Unknown Completed [facility] Pneumococcal Polysaccharide, PPSV23 (PNEUMOVAX) Unknown Completed [facility] Influenza High Dose Unknown Completed [facility] Influenza High Dose Unknown Completed [facility] Influenza Virus Vaccine Unknown Completed [facility] Influenza Virus Vaccine Unknown Completed [facility] Influenza Virus Vaccine Unknown Completed [facility] Pneumococcal Polysaccharide, PPSV23 (PNEUMOVAX) Unknown Completed [facility] Pneumococcal Polysaccharide, PPSV23 (PNEUMOVAX) Unknown Completed [facility] SARS-COV-2 COVID-19 UNSPECIFIED VACCINE Unknown Completed [facility] SARS-COV-2 COVID-19 UNSPECIFIED VACCINE Unknown Completed [facility] Influenza Virus Vaccine Quad IM Multi-dose 6+ MO Unknown Completed [facility] Pneumococcal Polysaccharide, PPSV23 (PNEUMOVAX) Unknown Completed [facility] Influenza Virus Vaccine,quad Im,preserve Free 65+ (FLUAD) Unknown Completed [facility] SARS-COV-2 COVID-19 VACCINE - (MODERNA) Unknown Completed [facility] SARS-COV-2 COVID-19 VACCINE - (MODERNA) Unknown Completed [facility] Pneumococcal Polysaccharide, PPSV23 (PNEUMOVAX) Unknown Completed [facility] Pneumococcal Polysaccharide, PPSV23 (PNEUMOVAX) Unknown Completed [facility] Pneumococcal 13 Conjugate, PCV13 (Prevnar 13) Unknown Completed [facility] TDAP Unknown Completed [facility] Influenza High Dose Unknown Completed [facility] Influenza High Dose Unknown Completed [facility] Pneumococcal Polysaccharide, PPSV23 (PNEUMOVAX) Unknown Completed [facility] Influenza High Dose Unknown Completed [facility] Influenza High Dose Unknown Completed [facility] Influenza Virus Vaccine Unknown Completed [facility] Influenza Virus Vaccine Unknown Completed [facility] Influenza Virus Vaccine Unknown Completed [facility] Pneumococcal Polysaccharide, PPSV23 (PNEUMOVAX) Unknown Completed [facility] Pneumococcal Polysaccharide, PPSV23 (PNEUMOVAX) Unknown Completed [facility] SARS-COV-2 COVID-19 UNSPECIFIED VACCINE Unknown Completed [facility] SARS-COV-2 COVID-19 UNSPECIFIED VACCINE Unknown Completed [facility] Influenza Virus Vaccine Quad IM Multi-dose 6+ MO Unknown Completed [facility] Pneumococcal Polysaccharide, PPSV23 (PNEUMOVAX) Unknown Completed [facility] Influenza Virus Vaccine,quad Im,preserve Free 65+ (FLUAD) Unknown Completed [facility] SARS-COV-2 COVID-19 VACCINE - (MODERNA) Unknown Completed [facility] SARS-COV-2 COVID-19 VACCINE - (MODERNA) Unknown Completed [facility] Pneumococcal Polysaccharide, PPSV23 (PNEUMOVAX) Unknown Completed [facility] Pneumococcal Polysaccharide, PPSV23 (PNEUMOVAX) Unknown Completed [facility] Pneumococcal 13 Conjugate, PCV13 (Prevnar 13) Unknown Completed [facility] TDAP Unknown Completed [facility] Influenza High Dose Unknown Completed [facility] Influenza High Dose Unknown Completed [facility] Pneumococcal Polysaccharide, PPSV23 (PNEUMOVAX) Unknown Completed [facility] Influenza High Dose Unknown Completed [facility] Influenza High Dose Unknown Completed [facility] Influenza Virus Vaccine Unknown Completed [facility] Influenza Virus Vaccine Unknown Completed [facility] Influenza Virus Vaccine Unknown Completed [facility] Pneumococcal Polysaccharide, PPSV23 (PNEUMOVAX) Unknown Completed [facility] Pneumococcal Polysaccharide, PPSV23 (PNEUMOVAX) Unknown Completed [facility] SARS-COV-2 COVID-19 UNSPECIFIED VACCINE Unknown Completed [facility] SARS-COV-2 COVID-19 UNSPECIFIED VACCINE Unknown Completed [facility] Influenza Virus Vaccine Quad IM Multi-dose 6+ MO Unknown Completed [facility] Pneumococcal Polysaccharide, PPSV23 (PNEUMOVAX) Unknown Completed [facility] Influenza Virus Vaccine,quad Im,preserve Free 65+ (FLUAD) Unknown Completed [facility] SARS-COV-2 COVID-19 VACCINE - (MODERNA) Unknown Completed [facility] SARS-COV-2 COVID-19 VACCINE - (MODERNA) Unknown Completed [facility] Pneumococcal Polysaccharide, PPSV23 (PNEUMOVAX) Unknown Completed [facility] Pneumococcal Polysaccharide, PPSV23 (PNEUMOVAX) Unknown Completed [facility] Pneumococcal 13 Conjugate, PCV13 (Prevnar 13) Unknown Completed [facility] TDAP Unknown Completed [facility] Influenza High Dose Unknown Completed [facility] Influenza High Dose Unknown Completed [facility] Pneumococcal Polysaccharide, PPSV23 (PNEUMOVAX) Unknown Completed [facility] Influenza High Dose Unknown Completed [facility] Influenza High Dose Unknown Completed [facility] Influenza Virus Vaccine Unknown Completed [facility] Influenza Virus Vaccine Unknown Completed [facility] Influenza Virus Vaccine Unknown Completed [facility] Pneumococcal Polysaccharide, PPSV23 (PNEUMOVAX) Unknown Completed [facility] Pneumococcal Polysaccharide, PPSV23 (PNEUMOVAX) Unknown Completed [facility] SARS-COV-2 COVID-19 UNSPECIFIED VACCINE Unknown Completed [facility] SARS-COV-2 COVID-19 UNSPECIFIED VACCINE Unknown Completed [facility] Influenza Virus Vaccine Quad IM Multi-dose 6+ MO Unknown Completed [facility] Pneumococcal Polysaccharide, PPSV23 (PNEUMOVAX) Unknown Completed [facility] Influenza Virus Vaccine,quad Im,preserve Free 65+ (FLUAD) Unknown Completed [facility] SARS-COV-2 COVID-19 VACCINE - (MODERNA) Unknown Completed [facility] SARS-COV-2 COVID-19 VACCINE - (MODERNA) Unknown Completed [facility] Pneumococcal Polysaccharide, PPSV23 (PNEUMOVAX) Unknown Completed [facility] Pneumococcal Polysaccharide, PPSV23 (PNEUMOVAX) Unknown Completed [facility] Pneumococcal 13 Conjugate, PCV13 (Prevnar 13) Unknown Completed [facility] TDAP Unknown Completed [facility] Influenza High Dose Unknown Completed [facility] Influenza High Dose Unknown Completed [facility] Pneumococcal Polysaccharide, PPSV23 (PNEUMOVAX) Unknown Completed [facility] Influenza High Dose Unknown Completed [facility] Influenza High Dose Unknown Completed [facility] Influenza Virus Vaccine Unknown Completed [facility] Influenza Virus Vaccine Unknown Completed [facility] Influenza Virus Vaccine Unknown Completed [facility] Pneumococcal Polysaccharide, PPSV23 (PNEUMOVAX) Unknown Completed [facility] Pneumococcal Polysaccharide, PPSV23 (PNEUMOVAX) Unknown Completed [facility] SARS-COV-2 COVID-19 UNSPECIFIED VACCINE Unknown Completed [facility] SARS-COV-2 COVID-19 UNSPECIFIED VACCINE Unknown Completed [facility] Influenza Virus Vaccine Quad IM Multi-dose 6+ MO Unknown Completed [facility] Pneumococcal Polysaccharide, PPSV23 (PNEUMOVAX) Unknown Completed [facility] Influenza Virus Vaccine,quad Im,preserve Free 65+ (FLUAD) Unknown Completed [facility] SARS-COV-2 COVID-19 VACCINE - (MODERNA) Unknown Completed [facility] SARS-COV-2 COVID-19 VACCINE - (MODERNA) Unknown Completed [facility] Pneumococcal Polysaccharide, PPSV23 (PNEUMOVAX) Unknown Completed [facility] Pneumococcal Polysaccharide, PPSV23 (PNEUMOVAX) Unknown Completed [facility] Pneumococcal 13 Conjugate, PCV13 (Prevnar 13) Unknown Completed [facility] TDAP Unknown Completed [facility] Influenza High Dose Unknown Completed [facility] Influenza High Dose Unknown Completed [facility] Pneumococcal Polysaccharide, PPSV23 (PNEUMOVAX) Unknown Completed [facility] Influenza High Dose Unknown Completed [facility] Influenza High Dose Unknown Completed [facility] Influenza Virus Vaccine Unknown Completed [facility] Influenza Virus Vaccine Unknown Completed [facility] Influenza Virus Vaccine Unknown Completed [facility] Pneumococcal Polysaccharide, PPSV23 (PNEUMOVAX) Unknown Completed [facility] Pneumococcal Polysaccharide, PPSV23 (PNEUMOVAX) Unknown Completed [facility] SARS-COV-2 COVID-19 UNSPECIFIED VACCINE Unknown Completed [facility] SARS-COV-2 COVID-19 UNSPECIFIED VACCINE Unknown Completed [facility] Influenza Virus Vaccine Quad IM Multi-dose 6+ MO Unknown Completed [facility] Pneumococcal Polysaccharide, PPSV23 (PNEUMOVAX) Unknown Completed [facility] Influenza Virus Vaccine,quad Im,preserve Free 65+ (FLUAD) Unknown Completed [facility] SARS-COV-2 COVID-19 VACCINE - (MODERNA) Unknown Completed [facility] SARS-COV-2 COVID-19 VACCINE - (MODERNA) Unknown Completed [facility] Pneumococcal Polysaccharide, PPSV23 (PNEUMOVAX) Unknown Completed [facility] Pneumococcal Polysaccharide, PPSV23 (PNEUMOVAX) Unknown Completed [facility] Pneumococcal 13 Conjugate, PCV13 (Prevnar 13) Unknown Completed [facility] TDAP Unknown Completed [facility] Influenza High Dose Unknown Completed [facility] Influenza High Dose Unknown Completed [facility] Pneumococcal Polysaccharide, PPSV23 (PNEUMOVAX) Unknown Completed [facility] Influenza High Dose Unknown Completed [facility] Influenza High Dose Unknown Completed [facility] Influenza Virus Vaccine Unknown Completed [facility] Influenza Virus Vaccine Unknown Completed [facility] Influenza Virus Vaccine Unknown Completed [facility] Pneumococcal Polysaccharide, PPSV23 (PNEUMOVAX) Unknown Completed [facility] Pneumococcal Polysaccharide, PPSV23 (PNEUMOVAX) Unknown Completed [facility] SARS-COV-2 COVID-19 UNSPECIFIED VACCINE Unknown Completed [facility] SARS-COV-2 COVID-19 UNSPECIFIED VACCINE Unknown Completed [facility] Influenza Virus Vaccine Quad IM Multi-dose 6+ MO Unknown Completed [facility] Pneumococcal Polysaccharide, PPSV23 (PNEUMOVAX) Unknown Completed [facility] Influenza Virus Vaccine,quad Im,preserve Free 65+ (FLUAD) Unknown Completed [facility] SARS-COV-2 COVID-19 VACCINE - (MODERNA) Unknown Completed [facility] SARS-COV-2 COVID-19 VACCINE - (MODERNA) Unknown Completed [facility] Pneumococcal Polysaccharide, PPSV23 (PNEUMOVAX) Unknown Completed [facility] Pneumococcal Polysaccharide, PPSV23 (PNEUMOVAX) Unknown Completed [facility] Pneumococcal 13 Conjugate, PCV13 (Prevnar 13) Unknown Completed [facility] TDAP Unknown Completed [facility] Influenza High Dose Unknown Completed [facility] Influenza High Dose Unknown Completed [facility] Pneumococcal Polysaccharide, PPSV23 (PNEUMOVAX) Unknown Completed [facility] Influenza High Dose Unknown Completed [facility] Influenza High Dose Unknown Completed [facility] Influenza Virus Vaccine Unknown Completed [facility] Influenza Virus Vaccine Unknown Completed [facility] Influenza Virus Vaccine Unknown Completed [facility] Pneumococcal Polysaccharide, PPSV23 (PNEUMOVAX) Unknown Completed [facility] Pneumococcal Polysaccharide, PPSV23 (PNEUMOVAX) Unknown Completed [facility] SARS-COV-2 COVID-19 UNSPECIFIED VACCINE Unknown Completed [facility] SARS-COV-2 COVID-19 UNSPECIFIED VACCINE Unknown Completed [facility] Influenza Virus Vaccine Quad IM Multi-dose 6+ MO Unknown Completed [facility] Pneumococcal Polysaccharide, PPSV23 (PNEUMOVAX) Unknown Completed [facility] Influenza Virus Vaccine,quad Im,preserve Free 65+ (FLUAD) Unknown Completed [facility] SARS-COV-2 COVID-19 VACCINE - (MODERNA) Unknown Completed [facility] SARS-COV-2 COVID-19 VACCINE - (MODERNA) Unknown Completed [facility] Pneumococcal Polysaccharide, PPSV23 (PNEUMOVAX) Unknown Completed [facility] Pneumococcal Polysaccharide, PPSV23 (PNEUMOVAX) Unknown Completed [facility] Pneumococcal 13 Conjugate, PCV13 (Prevnar 13) Unknown Completed [facility] TDAP Unknown Completed [facility] Influenza High Dose Unknown Completed [facility] Influenza High Dose Unknown Completed [facility] Pneumococcal Polysaccharide, PPSV23 (PNEUMOVAX) Unknown Completed [facility] Influenza High Dose Unknown Completed [facility] Influenza High Dose Unknown Completed [facility] Influenza Virus Vaccine Unknown Completed [facility] Influenza Virus Vaccine Unknown Completed [facility] Influenza Virus Vaccine Unknown Completed [facility] Pneumococcal Polysaccharide, PPSV23 (PNEUMOVAX) Unknown Completed [facility] Pneumococcal Polysaccharide, PPSV23 (PNEUMOVAX) Unknown Completed [facility] SARS-COV-2 COVID-19 UNSPECIFIED VACCINE Unknown Completed [facility] SARS-COV-2 COVID-19 UNSPECIFIED VACCINE Unknown Completed [facility] Influenza Virus Vaccine Quad IM Multi-dose 6+ MO Unknown Completed [facility] Pneumococcal Polysaccharide, PPSV23 (PNEUMOVAX) Unknown Completed [facility] Influenza Virus Vaccine,quad Im,preserve Free 65+ (FLUAD) Unknown Completed [facility] SARS-COV-2 COVID-19 VACCINE - (MODERNA) Unknown Completed [facility] SARS-COV-2 COVID-19 VACCINE - (MODERNA) Unknown Completed [facility] Pneumococcal Polysaccharide, PPSV23 (PNEUMOVAX) Unknown Completed [facility] Pneumococcal Polysaccharide, PPSV23 (PNEUMOVAX) Unknown Completed [facility] Pneumococcal 13 Conjugate, PCV13 (Prevnar 13) Unknown Completed [facility] TDAP Unknown Completed [facility] Influenza High Dose Unknown Completed [facility] Influenza High Dose Unknown Completed [facility] Pneumococcal Polysaccharide, PPSV23 (PNEUMOVAX) Unknown Completed [facility] Influenza High Dose Unknown Completed [facility] Influenza High Dose Unknown Completed [facility] Influenza Virus Vaccine Unknown Completed [facility] Influenza Virus Vaccine Unknown Completed [facility] Influenza Virus Vaccine Unknown Completed [facility] Pneumococcal Polysaccharide, PPSV23 (PNEUMOVAX) Unknown Completed [facility] Pneumococcal Polysaccharide, PPSV23 (PNEUMOVAX) Unknown Completed [facility] SARS-COV-2 COVID-19 UNSPECIFIED VACCINE Unknown Completed [facility] SARS-COV-2 COVID-19 UNSPECIFIED VACCINE Unknown Completed [facility] Influenza Virus Vaccine Quad IM Multi-dose 6+ MO Unknown Completed [facility] Pneumococcal Polysaccharide, PPSV23 (PNEUMOVAX) Unknown Completed [facility] Influenza Virus Vaccine,quad Im,preserve Free 65+ (FLUAD) Unknown Completed [facility] SARS-COV-2 COVID-19 VACCINE - (MODERNA) Unknown Completed [facility] SARS-COV-2 COVID-19 VACCINE - (MODERNA) Unknown Completed [facility] Pneumococcal Polysaccharide, PPSV23 (PNEUMOVAX) Unknown Completed [facility] Pneumococcal Polysaccharide, PPSV23 (PNEUMOVAX) Unknown Completed [facility] Pneumococcal 13 Conjugate, PCV13 (Prevnar 13) Unknown Completed [facility] TDAP Unknown Completed [facility] Influenza High Dose Unknown Completed [facility] Influenza High Dose Unknown Completed [facility] Pneumococcal Polysaccharide, PPSV23 (PNEUMOVAX) Unknown Completed [facility] Influenza High Dose Unknown Completed [facility] Influenza High Dose Unknown Completed [facility] Influenza Virus Vaccine Unknown Completed [facility] Influenza Virus Vaccine Unknown Completed [facility] Influenza Virus Vaccine Unknown Completed [facility] Pneumococcal Polysaccharide, PPSV23 (PNEUMOVAX) Unknown Completed [facility] Pneumococcal Polysaccharide, PPSV23 (PNEUMOVAX) Unknown Completed [facility] SARS-COV-2 COVID-19 UNSPECIFIED VACCINE Unknown Completed [facility] SARS-COV-2 COVID-19 UNSPECIFIED VACCINE Unknown Completed [facility] Influenza Virus Vaccine Quad IM Multi-dose 6+ MO Unknown Completed [facility] Pneumococcal Polysaccharide, PPSV23 (PNEUMOVAX) Unknown Completed [facility] Influenza Virus Vaccine,quad Im,preserve Free 65+ (FLUAD) Unknown Completed [facility] SARS-COV-2 COVID-19 VACCINE - (MODERNA) Unknown Completed [facility] SARS-COV-2 COVID-19 VACCINE - (MODERNA) Unknown Completed [facility] Pneumococcal Polysaccharide, PPSV23 (PNEUMOVAX) Unknown Completed [facility] Pneumococcal Polysaccharide, PPSV23 (PNEUMOVAX) Unknown Completed [facility] Pneumococcal 13 Conjugate, PCV13 (Prevnar 13) Unknown Completed [facility] TDAP Unknown Completed [facility] Influenza High Dose Unknown Completed [facility] Influenza High Dose Unknown Completed [facility] Pneumococcal Polysaccharide, PPSV23 (PNEUMOVAX) Unknown Completed [facility] Influenza High Dose Unknown Completed [facility] Influenza High Dose Unknown Completed [facility] Influenza Virus Vaccine Unknown Completed [facility] Influenza Virus Vaccine Unknown Completed [facility] Influenza Virus Vaccine Unknown Completed [facility] Pneumococcal Polysaccharide, PPSV23 (PNEUMOVAX) Unknown Completed [facility] Pneumococcal Polysaccharide, PPSV23 (PNEUMOVAX) Unknown Completed [facility] SARS-COV-2 COVID-19 UNSPECIFIED VACCINE Unknown Completed [facility] SARS-COV-2 COVID-19 UNSPECIFIED VACCINE Unknown Completed [facility] Influenza Virus Vaccine Quad IM Multi-dose 6+ MO Unknown Completed [facility] Pneumococcal Polysaccharide, PPSV23 (PNEUMOVAX) Unknown Completed [facility] Influenza Virus Vaccine,quad Im,preserve Free 65+ (FLUAD) Unknown Completed [facility] SARS-COV-2 COVID-19 VACCINE - (MODERNA) Unknown Completed [facility] SARS-COV-2 COVID-19 VACCINE - (MODERNA) Unknown Completed [facility] Pneumococcal Polysaccharide, PPSV23 (PNEUMOVAX) Unknown Completed [facility] Pneumococcal Polysaccharide, PPSV23 (PNEUMOVAX) Unknown Completed [facility] Pneumococcal 13 Conjugate, PCV13 (Prevnar 13) Unknown Completed [facility] TDAP Unknown Completed [facility] [facility] Influenza High Dose Unknown Completed [facility] Influenza High Dose Unknown Completed [facility] Pneumococcal Polysaccharide, PPSV23 (PNEUMOVAX) Unknown Completed [facility] Influenza High Dose Unknown Completed [facility] Influenza High Dose Unknown Completed [facility] Influenza Virus Vaccine Unknown Completed [facility] Influenza Virus Vaccine Unknown Completed [facility] Influenza Virus Vaccine Unknown Completed [facility] Pneumococcal Polysaccharide, PPSV23 (PNEUMOVAX) Unknown Completed [facility] Pneumococcal Polysaccharide, PPSV23 (PNEUMOVAX) Unknown Completed [facility] SARS-COV-2 COVID-19 UNSPECIFIED VACCINE Unknown Completed [facility] SARS-COV-2 COVID-19 UNSPECIFIED VACCINE Unknown Completed [facility] Influenza Virus Vaccine Quad IM Multi-dose 6+ MO Unknown Completed [facility] Pneumococcal Polysaccharide, PPSV23 (PNEUMOVAX) Unknown Completed [facility] Influenza Virus Vaccine,quad Im,preserve Free 65+ (FLUAD) Unknown Completed [facility] SARS-COV-2 COVID-19 VACCINE - (MODERNA) Unknown Completed [facility] SARS-COV-2 COVID-19 VACCINE - (MODERNA) Unknown Completed [facility] Pneumococcal Polysaccharide, PPSV23 (PNEUMOVAX) Unknown Completed [facility] Pneumococcal Polysaccharide, PPSV23 (PNEUMOVAX) Unknown Completed [facility] Pneumococcal 13 Conjugate, PCV13 (Prevnar 13) Unknown Completed [facility] TDAP Unknown Completed [facility] Influenza High Dose Unknown Completed [facility] Influenza High Dose Unknown Completed [facility] Pneumococcal Polysaccharide, PPSV23 (PNEUMOVAX) Unknown Completed [facility] Influenza High Dose Unknown Completed [facility] Influenza High Dose Unknown Completed [facility] Influenza Virus Vaccine Unknown Completed [facility] Influenza Virus Vaccine Unknown Completed [facility] Influenza Virus Vaccine Unknown Completed [facility] Pneumococcal Polysaccharide, PPSV23 (PNEUMOVAX) Unknown Completed [facility] Pneumococcal Polysaccharide, PPSV23 (PNEUMOVAX) Unknown Completed [facility] SARS-COV-2 COVID-19 UNSPECIFIED VACCINE Unknown Completed [facility] SARS-COV-2 COVID-19 UNSPECIFIED VACCINE Unknown Completed [facility] Influenza Virus Vaccine Quad IM Multi-dose 6+ MO Unknown Completed [facility] Pneumococcal Polysaccharide, PPSV23 (PNEUMOVAX) Unknown Completed [facility] Influenza Virus Vaccine,quad Im,preserve Free 65+ (FLUAD) Unknown Completed [facility] SARS-COV-2 COVID-19 VACCINE - (MODERNA) Unknown Completed [facility] SARS-COV-2 COVID-19 VACCINE - (MODERNA) Unknown Completed [facility] Pneumococcal Polysaccharide, PPSV23 (PNEUMOVAX) Unknown Completed [facility] Pneumococcal Polysaccharide, PPSV23 (PNEUMOVAX) Unknown Completed [facility] Pneumococcal 13 Conjugate, PCV13 (Prevnar 13) Unknown Completed [facility] TDAP Unknown Completed [facility] Influenza High Dose Unknown Completed [facility] Influenza High Dose Unknown Completed [facility] Pneumococcal Polysaccharide, PPSV23 (PNEUMOVAX) Unknown Completed [facility] Influenza High Dose Unknown Completed [facility] Influenza High Dose Unknown Completed [facility] Influenza Virus Vaccine Unknown Completed [facility] Influenza Virus Vaccine Unknown Completed [facility] Influenza Virus Vaccine Unknown Completed [facility] Pneumococcal Polysaccharide, PPSV23 (PNEUMOVAX) Unknown Completed [facility] Pneumococcal Polysaccharide, PPSV23 (PNEUMOVAX) Unknown Completed [facility] SARS-COV-2 COVID-19 UNSPECIFIED VACCINE Unknown Completed [facility] SARS-COV-2 COVID-19 UNSPECIFIED VACCINE Unknown Completed [facility] Influenza Virus Vaccine Quad IM Multi-dose 6+ MO Unknown Completed [facility] Pneumococcal Polysaccharide, PPSV23 (PNEUMOVAX) Unknown Completed [facility] Influenza Virus Vaccine,quad Im,preserve Free 65+ (FLUAD) Unknown Completed [facility] SARS-COV-2 COVID-19 VACCINE - (MODERNA) Unknown Completed [facility] SARS-COV-2 COVID-19 VACCINE - (MODERNA) Unknown Completed [facility] Pneumococcal Polysaccharide, PPSV23 (PNEUMOVAX) Unknown Completed [facility] Pneumococcal Polysaccharide, PPSV23 (PNEUMOVAX) Unknown Completed [facility] Pneumococcal 13 Conjugate, PCV13 (Prevnar 13) Unknown Completed [facility] TDAP Unknown Completed [facility] Influenza High Dose Unknown Completed [facility] Influenza High Dose Unknown Completed [facility] Pneumococcal Polysaccharide, PPSV23 (PNEUMOVAX) Unknown Completed [facility] Influenza High Dose Unknown Completed [facility] Influenza High Dose Unknown Completed [facility] Influenza Virus Vaccine Unknown Completed [facility] Influenza Virus Vaccine Unknown Completed [facility] Influenza Virus Vaccine Unknown Completed [facility] Pneumococcal Polysaccharide, PPSV23 (PNEUMOVAX) Unknown Completed [facility] Pneumococcal Polysaccharide, PPSV23 (PNEUMOVAX) Unknown Completed [facility] SARS-COV-2 COVID-19 UNSPECIFIED VACCINE Unknown Completed [facility] SARS-COV-2 COVID-19 UNSPECIFIED VACCINE Unknown Completed [facility] Influenza Virus Vaccine Quad IM Multi-dose 6+ MO Unknown Completed [facility] Pneumococcal Polysaccharide, PPSV23 (PNEUMOVAX) Unknown Completed [facility] Influenza Virus Vaccine,quad Im,preserve Free 65+ (FLUAD) Unknown Completed [facility] SARS-COV-2 COVID-19 VACCINE - (MODERNA) Unknown Completed [facility] SARS-COV-2 COVID-19 VACCINE - (MODERNA) Unknown Completed [facility] Pneumococcal Polysaccharide, PPSV23 (PNEUMOVAX) Unknown Completed [facility] Pneumococcal Polysaccharide, PPSV23 (PNEUMOVAX) Unknown Completed [facility] Pneumococcal 13 Conjugate, PCV13 (Prevnar 13) Unknown Completed [facility] TDAP Unknown Completed [facility] Influenza High Dose Unknown Completed [facility] Influenza High Dose Unknown Completed [facility] Pneumococcal Polysaccharide, PPSV23 (PNEUMOVAX) Unknown Completed [facility] Influenza High Dose Unknown Completed [facility] Influenza High Dose Unknown Completed [facility] Influenza Virus Vaccine Unknown Completed [facility] Influenza Virus Vaccine Unknown Completed [facility] Influenza Virus Vaccine Unknown Completed [facility] Pneumococcal Polysaccharide, PPSV23 (PNEUMOVAX) Unknown Completed [facility] Pneumococcal Polysaccharide, PPSV23 (PNEUMOVAX) Unknown Completed [facility] SARS-COV-2 COVID-19 UNSPECIFIED VACCINE Unknown Completed [facility] SARS-COV-2 COVID-19 UNSPECIFIED VACCINE Unknown Completed [facility] Influenza Virus Vaccine Quad IM Multi-dose 6+ MO Unknown Completed [facility] Pneumococcal Polysaccharide, PPSV23 (PNEUMOVAX) Unknown Completed [facility] Influenza Virus Vaccine,quad Im,preserve Free 65+ (FLUAD) Unknown Completed [facility] SARS-COV-2 COVID-19 VACCINE - (MODERNA) Unknown Completed [facility] SARS-COV-2 COVID-19 VACCINE - (MODERNA) Unknown Completed [facility] Pneumococcal Polysaccharide, PPSV23 (PNEUMOVAX) Unknown Completed [facility] Pneumococcal Polysaccharide, PPSV23 (PNEUMOVAX) Unknown Completed [facility] Pneumococcal 13 Conjugate, PCV13 (Prevnar 13) Unknown Completed [facility] TDAP Unknown Completed [facility] Influenza High Dose Unknown Completed [facility] Influenza High Dose Unknown Completed [facility] Pneumococcal Polysaccharide, PPSV23 (PNEUMOVAX) Unknown Completed [facility] Influenza High Dose Unknown Completed [facility] Influenza High Dose Unknown Completed [facility] Influenza Virus Vaccine Unknown Completed [facility] Influenza Virus Vaccine Unknown Completed [facility] Influenza Virus Vaccine Unknown Completed [facility] Pneumococcal Polysaccharide, PPSV23 (PNEUMOVAX) Unknown Completed [facility] Pneumococcal Polysaccharide, PPSV23 (PNEUMOVAX) Unknown Completed [facility] SARS-COV-2 COVID-19 UNSPECIFIED VACCINE Unknown Completed [facility] SARS-COV-2 COVID-19 UNSPECIFIED VACCINE Unknown Completed [facility] Influenza Virus Vaccine Quad IM Multi-dose 6+ MO Unknown Completed [facility] Pneumococcal Polysaccharide, PPSV23 (PNEUMOVAX) Unknown Completed [facility] Influenza Virus Vaccine,quad Im,preserve Free 65+ (FLUAD) Unknown Completed [facility] SARS-COV-2 COVID-19 VACCINE - (MODERNA) Unknown Completed [facility] SARS-COV-2 COVID-19 VACCINE - (MODERNA) Unknown Completed [facility] Pneumococcal Polysaccharide, PPSV23 (PNEUMOVAX) Unknown Completed [facility] Pneumococcal Polysaccharide, PPSV23 (PNEUMOVAX) Unknown Completed [facility] Pneumococcal 13 Conjugate, PCV13 (Prevnar 13) Unknown Completed [facility] TDAP Unknown Completed [facility] Influenza High Dose Unknown Completed [facility] Influenza High Dose Unknown Completed [facility] Pneumococcal Polysaccharide, PPSV23 (PNEUMOVAX) Unknown Completed [facility] Influenza High Dose Unknown Completed [facility] Influenza High Dose Unknown Completed [facility] Influenza Virus Vaccine Unknown Completed [facility] Influenza Virus Vaccine Unknown Completed [facility] Influenza Virus Vaccine Unknown Completed [facility] Pneumococcal Polysaccharide, PPSV23 (PNEUMOVAX) Unknown Completed [facility] Pneumococcal Polysaccharide, PPSV23 (PNEUMOVAX) Unknown Completed [facility] SARS-COV-2 COVID-19 UNSPECIFIED VACCINE Unknown Completed [facility] SARS-COV-2 COVID-19 UNSPECIFIED VACCINE Unknown Completed [facility] Influenza Virus Vaccine Quad IM Multi-dose 6+ MO Unknown Completed [facility] Pneumococcal Polysaccharide, PPSV23 (PNEUMOVAX) Unknown Completed [facility] Influenza Virus Vaccine,quad Im,preserve Free 65+ (FLUAD) Unknown Completed [facility] SARS-COV-2 COVID-19 VACCINE - (MODERNA) Unknown Completed [facility] SARS-COV-2 COVID-19 VACCINE - (MODERNA) Unknown Completed [facility] Pneumococcal Polysaccharide, PPSV23 (PNEUMOVAX) Unknown Completed [facility] Pneumococcal Polysaccharide, PPSV23 (PNEUMOVAX) Unknown Completed [facility] Pneumococcal 13 Conjugate, PCV13 (Prevnar 13) Unknown Completed [facility] TDAP Unknown Completed [facility] Influenza High Dose Unknown Completed [facility] Influenza High Dose Unknown Completed [facility] Pneumococcal Polysaccharide, PPSV23 (PNEUMOVAX) Unknown Completed [facility] Influenza High Dose Unknown Completed [facility] Influenza High Dose Unknown Completed [facility] Influenza Virus Vaccine Unknown Completed [facility] Influenza Virus Vaccine Unknown Completed [facility] Influenza Virus Vaccine Unknown Completed [facility] Pneumococcal Polysaccharide, PPSV23 (PNEUMOVAX) Unknown Completed [facility] Pneumococcal Polysaccharide, PPSV23 (PNEUMOVAX) Unknown Completed [facility] SARS-COV-2 COVID-19 UNSPECIFIED VACCINE Unknown Completed [facility] SARS-COV-2 COVID-19 UNSPECIFIED VACCINE Unknown Completed [facility] Influenza Virus Vaccine Quad IM Multi-dose 6+ MO Unknown Completed [facility] Pneumococcal Polysaccharide, PPSV23 (PNEUMOVAX) Unknown Completed [facility] Influenza Virus Vaccine,quad Im,preserve Free 65+ (FLUAD) Unknown Completed [facility] SARS-COV-2 COVID-19 VACCINE - (MODERNA) Unknown Completed [facility] SARS-COV-2 COVID-19 VACCINE - (MODERNA) Unknown Completed [facility] Pneumococcal Unspecified Unknown Completed [facility] Pneumococcal Unspecified Unknown Completed [facility] Pneumococcal Polysaccharide, PPSV23 (PNEUMOVAX) Unknown Completed [facility] Pneumococcal Polysaccharide, PPSV23 (PNEUMOVAX) Unknown Completed [facility] Pneumococcal 13 Conjugate, PCV13 (Prevnar 13) Unknown Completed [facility] TDAP Unknown Completed [facility] Influenza High Dose Unknown Completed [facility] Influenza High Dose Unknown Completed [facility] Pneumococcal Polysaccharide, PPSV23 (PNEUMOVAX) Unknown Completed [facility] Influenza High Dose Unknown Completed [facility] Influenza High Dose Unknown Completed [facility] Influenza Virus Vaccine Unknown Completed [facility] Influenza Virus Vaccine Unknown Completed [facility] Influenza Virus Vaccine Unknown Completed [facility] Pneumococcal Polysaccharide, PPSV23 (PNEUMOVAX) Unknown Completed [facility] Pneumococcal Polysaccharide, PPSV23 (PNEUMOVAX) Unknown Completed [facility] SARS-COV-2 COVID-19 UNSPECIFIED VACCINE Unknown Completed [facility] SARS-COV-2 COVID-19 UNSPECIFIED VACCINE Unknown Completed [facility] Influenza Virus Vaccine Quad IM Multi-dose 6+ MO Unknown Completed [facility] Pneumococcal Polysaccharide, PPSV23 (PNEUMOVAX) Unknown Completed [facility] Influenza Virus Vaccine,quad Im,preserve Free 65+ (FLUAD) Unknown Completed [facility] SARS-COV-2 COVID-19 VACCINE - (MODERNA) Unknown Completed [facility] SARS-COV-2 COVID-19 VACCINE - (MODERNA) Unknown Completed [facility] Pneumococcal Unspecified Unknown Completed [facility] Pneumococcal Unspecified Unknown Completed [facility] Pneumococcal Polysaccharide, PPSV23 (PNEUMOVAX) Unknown Completed [facility] Pneumococcal Polysaccharide, PPSV23 (PNEUMOVAX) Unknown Completed [facility] Pneumococcal 13 Conjugate, PCV13 (Prevnar 13) Unknown Completed [facility] TDAP Unknown Completed [facility] Influenza High Dose Unknown Completed [facility] Influenza High Dose Unknown Completed [facility] Pneumococcal Polysaccharide, PPSV23 (PNEUMOVAX) Unknown Completed [facility] Influenza High Dose Unknown Completed [facility] Influenza High Dose Unknown Completed [facility] Influenza Virus Vaccine Unknown Completed [facility] Influenza Virus Vaccine Unknown Completed [facility] Influenza Virus Vaccine Unknown Completed [facility] Pneumococcal Polysaccharide, PPSV23 (PNEUMOVAX) Unknown Completed [facility] Pneumococcal Polysaccharide, PPSV23 (PNEUMOVAX) Unknown Completed [facility] SARS-COV-2 COVID-19 UNSPECIFIED VACCINE Unknown Completed [facility] SARS-COV-2 COVID-19 UNSPECIFIED VACCINE Unknown Completed [facility] Influenza Virus Vaccine Quad IM Multi-dose 6+ MO Unknown Completed [facility] Pneumococcal Polysaccharide, PPSV23 (PNEUMOVAX) Unknown Completed [facility] Influenza Virus Vaccine,quad Im,preserve Free 65+ (FLUAD) Unknown Completed [facility] SARS-COV-2 COVID-19 VACCINE - (MODERNA) Unknown Completed [facility] SARS-COV-2 COVID-19 VACCINE - (MODERNA) Unknown Completed [facility] Pneumococcal Unspecified Unknown Completed [facility] Pneumococcal Unspecified Unknown Completed [facility] Pneumococcal Polysaccharide, PPSV23 (PNEUMOVAX) Unknown Completed [facility] Pneumococcal Polysaccharide, PPSV23 (PNEUMOVAX) Unknown Completed [facility] Pneumococcal 13 Conjugate, PCV13 (Prevnar 13) Unknown Completed [facility] TDAP Unknown Completed [facility] Influenza High Dose Unknown Completed [facility] Influenza High Dose Unknown Completed [facility] Pneumococcal Polysaccharide, PPSV23 (PNEUMOVAX) Unknown Completed [facility] Influenza High Dose Unknown Completed [facility] Influenza High Dose Unknown Completed [facility] Influenza Virus Vaccine Unknown Completed [facility] Influenza Virus Vaccine Unknown Completed [facility] Influenza Virus Vaccine Unknown Completed [facility] Pneumococcal Polysaccharide, PPSV23 (PNEUMOVAX) Unknown Completed [facility] Pneumococcal Polysaccharide, PPSV23 (PNEUMOVAX) Unknown Completed [facility] SARS-COV-2 COVID-19 UNSPECIFIED VACCINE Unknown Completed [facility] SARS-COV-2 COVID-19 UNSPECIFIED VACCINE Unknown Completed [facility] Influenza Virus Vaccine Quad IM Multi-dose 6+ MO Unknown Completed [facility] Pneumococcal Polysaccharide, PPSV23 (PNEUMOVAX) Unknown Completed [facility] Influenza Virus Vaccine,quad Im,preserve Free 65+ (FLUAD) Unknown Completed [facility] SARS-COV-2 COVID-19 VACCINE - (MODERNA) Unknown Completed [facility] SARS-COV-2 COVID-19 VACCINE - (MODERNA) Unknown Completed [facility] Pneumococcal Unspecified Unknown Completed [facility] Pneumococcal Unspecified Unknown Completed [facility] Pneumococcal Polysaccharide, PPSV23 (PNEUMOVAX) Unknown Completed [facility] Pneumococcal Polysaccharide, PPSV23 (PNEUMOVAX) Unknown Completed [facility] Pneumococcal 13 Conjugate, PCV13 (Prevnar 13) Unknown Completed [facility] TDAP Unknown Completed [facility] Influenza High Dose Unknown Completed [facility] Influenza High Dose Unknown Completed [facility] Pneumococcal Polysaccharide, PPSV23 (PNEUMOVAX) Unknown Completed [facility] Influenza High Dose Unknown Completed [facility] Influenza High Dose Unknown Completed [facility] Influenza Virus Vaccine Unknown Completed [facility] Influenza Virus Vaccine Unknown Completed [facility] Influenza Virus Vaccine Unknown Completed [facility] Pneumococcal Polysaccharide, PPSV23 (PNEUMOVAX) Unknown Completed [facility] Pneumococcal Polysaccharide, PPSV23 (PNEUMOVAX) Unknown Completed [facility] SARS-COV-2 COVID-19 UNSPECIFIED VACCINE Unknown Completed [facility] SARS-COV-2 COVID-19 UNSPECIFIED VACCINE Unknown Completed [facility] Influenza Virus Vaccine Quad IM Multi-dose 6+ MO Unknown Completed [facility] Pneumococcal Polysaccharide, PPSV23 (PNEUMOVAX) Unknown Completed [facility] Influenza Virus Vaccine,quad Im,preserve Free 65+ (FLUAD) Unknown Completed [facility] SARS-COV-2 COVID-19 VACCINE - (MODERNA) Unknown Completed [facility] SARS-COV-2 COVID-19 VACCINE - (MODERNA) Unknown Completed [facility] Pneumococcal Unspecified Unknown Completed [facility] Pneumococcal Unspecified Unknown Completed [facility] Pneumococcal Polysaccharide, PPSV23 (PNEUMOVAX) Unknown Completed [facility] Pneumococcal Polysaccharide, PPSV23 (PNEUMOVAX) Unknown Completed [facility] Pneumococcal 13 Conjugate, PCV13 (Prevnar 13) Unknown Completed [facility] TDAP Unknown Completed [facility] Influenza High Dose Unknown Completed [facility] Influenza High Dose Unknown Completed [facility] Pneumococcal Polysaccharide, PPSV23 (PNEUMOVAX) Unknown Completed [facility] Influenza High Dose Unknown Completed [facility] Influenza High Dose Unknown Completed [facility] Influenza Virus Vaccine Unknown Completed [facility] Influenza Virus Vaccine Unknown Completed [facility] Influenza Virus Vaccine Unknown Completed [facility] Pneumococcal Polysaccharide, PPSV23 (PNEUMOVAX) Unknown Completed [facility] Pneumococcal Polysaccharide, PPSV23 (PNEUMOVAX) Unknown Completed [facility] SARS-COV-2 COVID-19 UNSPECIFIED VACCINE Unknown Completed [facility] SARS-COV-2 COVID-19 UNSPECIFIED VACCINE Unknown Completed [facility] Influenza Virus Vaccine Quad IM Multi-dose 6+ MO Unknown Completed [facility] Pneumococcal Polysaccharide, PPSV23 (PNEUMOVAX) Unknown Completed [facility] Influenza Virus Vaccine,quad Im,preserve Free 65+ (FLUAD) Unknown Completed [facility] SARS-COV-2 COVID-19 VACCINE - (MODERNA) Unknown Completed [facility] SARS-COV-2 COVID-19 VACCINE - (MODERNA) Unknown Completed [facility] Pneumococcal Unspecified Unknown Completed [facility] Pneumococcal Unspecified Unknown Completed [facility] Pneumococcal Polysaccharide, PPSV23 (PNEUMOVAX) Unknown Completed [facility] Pneumococcal Polysaccharide, PPSV23 (PNEUMOVAX) Unknown Completed [facility] Pneumococcal 13 Conjugate, PCV13 (Prevnar 13) Unknown Completed [facility] TDAP Unknown Completed [facility] Influenza High Dose Unknown Completed [facility] Influenza High Dose Unknown Completed [facility] Pneumococcal Polysaccharide, PPSV23 (PNEUMOVAX) Unknown Completed [facility] Influenza High Dose Unknown Completed [facility] Influenza High Dose Unknown Completed [facility] Influenza Virus Vaccine Unknown Completed [facility] Influenza Virus Vaccine Unknown Completed [facility] Influenza Virus Vaccine Unknown Completed [facility] Pneumococcal Polysaccharide, PPSV23 (PNEUMOVAX) Unknown Completed [facility] Pneumococcal Polysaccharide, PPSV23 (PNEUMOVAX) Unknown Completed [facility] SARS-COV-2 COVID-19 UNSPECIFIED VACCINE Unknown Completed [facility] SARS-COV-2 COVID-19 UNSPECIFIED VACCINE Unknown Completed [facility] Influenza Virus Vaccine Quad IM Multi-dose 6+ MO Unknown Completed [facility] Pneumococcal Polysaccharide, PPSV23 (PNEUMOVAX) Unknown Completed [facility] Influenza Virus Vaccine,quad Im,preserve Free 65+ (FLUAD) Unknown Completed [facility] SARS-COV-2 COVID-19 VACCINE - (MODERNA) Unknown Completed [facility] SARS-COV-2 COVID-19 VACCINE - (MODERNA) Unknown Completed [facility] Pneumococcal Unspecified Unknown Completed [facility] Pneumococcal Unspecified Unknown Completed [facility] Pneumococcal Polysaccharide, PPSV23 (PNEUMOVAX) Unknown Completed [facility] Pneumococcal Polysaccharide, PPSV23 (PNEUMOVAX) Unknown Completed [facility] Pneumococcal 13 Conjugate, PCV13 (Prevnar 13) Unknown Completed [facility] TDAP Unknown Completed [facility] Influenza High Dose Unknown Completed [facility] Influenza High Dose Unknown Completed [facility] Pneumococcal Polysaccharide, PPSV23 (PNEUMOVAX) Unknown Completed [facility] Influenza High Dose Unknown Completed [facility] Influenza High Dose Unknown Completed [facility] Influenza Virus Vaccine Unknown Completed [facility] Influenza Virus Vaccine Unknown Completed [facility] Influenza Virus Vaccine Unknown Completed [facility] Pneumococcal Polysaccharide, PPSV23 (PNEUMOVAX) Unknown Completed [facility] Pneumococcal Polysaccharide, PPSV23 (PNEUMOVAX) Unknown Completed [facility] SARS-COV-2 COVID-19 UNSPECIFIED VACCINE Unknown Completed [facility] SARS-COV-2 COVID-19 UNSPECIFIED VACCINE Unknown Completed [facility] Influenza Virus Vaccine Quad IM Multi-dose 6+ MO Unknown Completed [facility] Pneumococcal Polysaccharide, PPSV23 (PNEUMOVAX) Unknown Completed [facility] Influenza Virus Vaccine,quad Im,preserve Free 65+ (FLUAD) Unknown Completed [facility] SARS-COV-2 COVID-19 VACCINE - (MODERNA) Unknown Completed [facility] SARS-COV-2 COVID-19 VACCINE - (MODERNA) Unknown Completed [facility] Pneumococcal Unspecified Unknown Completed [facility] Pneumococcal Unspecified Unknown Completed [facility] Pneumococcal Polysaccharide, PPSV23 (PNEUMOVAX) Unknown Completed [facility] Pneumococcal Polysaccharide, PPSV23 (PNEUMOVAX) Unknown Completed [facility] Pneumococcal 13 Conjugate, PCV13 (Prevnar 13) Unknown Completed [facility] TDAP Unknown Completed [facility] Influenza High Dose Unknown Completed [facility] Influenza High Dose Unknown Completed [facility] Pneumococcal Polysaccharide, PPSV23 (PNEUMOVAX) Unknown Completed [facility] Influenza High Dose Unknown Completed [facility] Influenza High Dose Unknown Completed [facility] Influenza Virus Vaccine Unknown Completed [facility] Influenza Virus Vaccine Unknown Completed [facility] Influenza Virus Vaccine Unknown Completed [facility] Pneumococcal Polysaccharide, PPSV23 (PNEUMOVAX) Unknown Completed [facility] Pneumococcal Polysaccharide, PPSV23 (PNEUMOVAX) Unknown Completed [facility] SARS-COV-2 COVID-19 UNSPECIFIED VACCINE Unknown Completed [facility] SARS-COV-2 COVID-19 UNSPECIFIED VACCINE Unknown Completed [facility] Influenza Virus Vaccine Quad IM Multi-dose 6+ MO Unknown Completed [facility] Pneumococcal Polysaccharide, PPSV23 (PNEUMOVAX) Unknown Completed [facility] Influenza Virus Vaccine,quad Im,preserve Free 65+ (FLUAD) Unknown Completed [facility] SARS-COV-2 COVID-19 VACCINE - (MODERNA) Unknown Completed [facility] SARS-COV-2 COVID-19 VACCINE - (MODERNA) Unknown Completed [facility] Pneumococcal Unspecified Unknown Completed [facility] Pneumococcal Unspecified Unknown Completed [facility] Pneumococcal Polysaccharide, PPSV23 (PNEUMOVAX) Unknown Completed [facility] Pneumococcal Polysaccharide, PPSV23 (PNEUMOVAX) Unknown Completed [facility] Pneumococcal 13 Conjugate, PCV13 (Prevnar 13) Unknown Completed [facility] TDAP Unknown Completed [facility] Influenza High Dose Unknown Completed [facility] Influenza High Dose Unknown Completed [facility] Pneumococcal Polysaccharide, PPSV23 (PNEUMOVAX) Unknown Completed [facility] Influenza High Dose Unknown Completed [facility] Influenza High Dose Unknown Completed [facility] Influenza Virus Vaccine Unknown Completed [facility] Influenza Virus Vaccine Unknown Completed [facility] Influenza Virus Vaccine Unknown Completed [facility] Pneumococcal Polysaccharide, PPSV23 (PNEUMOVAX) Unknown Completed [facility] Pneumococcal Polysaccharide, PPSV23 (PNEUMOVAX) Unknown Completed [facility] SARS-COV-2 COVID-19 UNSPECIFIED VACCINE Unknown Completed [facility] SARS-COV-2 COVID-19 UNSPECIFIED VACCINE Unknown Completed [facility] Influenza Virus Vaccine Quad IM Multi-dose 6+ MO Unknown Completed [facility] Pneumococcal Polysaccharide, PPSV23 (PNEUMOVAX) Unknown Completed [facility] Influenza Virus Vaccine,quad Im,preserve Free 65+ (FLUAD) Unknown Completed [facility] SARS-COV-2 COVID-19 VACCINE - (MODERNA) Unknown Completed [facility] SARS-COV-2 COVID-19 VACCINE - (MODERNA) Unknown Completed [facility] Pneumococcal Unspecified Unknown Completed [facility] Pneumococcal Unspecified Unknown Completed [facility] Pneumococcal Polysaccharide, PPSV23 (PNEUMOVAX) Unknown Completed [facility] Pneumococcal Polysaccharide, PPSV23 (PNEUMOVAX) Unknown Completed [facility] Pneumococcal 13 Conjugate, PCV13 (Prevnar 13) Unknown Completed [facility] TDAP Unknown Completed [facility] Influenza High Dose Unknown Completed [facility] Influenza High Dose Unknown Completed [facility] Pneumococcal Polysaccharide, PPSV23 (PNEUMOVAX) Unknown Completed [facility] Influenza High Dose Unknown Completed [facility] Influenza High Dose Unknown Completed [facility] Influenza Virus Vaccine Unknown Completed [facility] Influenza Virus Vaccine Unknown Completed [facility] Influenza Virus Vaccine Unknown Completed [facility] Pneumococcal Polysaccharide, PPSV23 (PNEUMOVAX) Unknown Completed [facility] Pneumococcal Polysaccharide, PPSV23 (PNEUMOVAX) Unknown Completed [facility] SARS-COV-2 COVID-19 UNSPECIFIED VACCINE Unknown [facility] SARS-COV-2 COVID-19 UNSPECIFIED VACCINE Unknown Completed [facility] Influenza Virus Vaccine Quad IM Multi-dose 6+ MO Unknown Completed [facility] Pneumococcal Polysaccharide, PPSV23 (PNEUMOVAX) Unknown Completed [facility] Influenza Virus Vaccine,quad Im,preserve Free 65+ (FLUAD) Unknown Completed [facility] SARS-COV-2 COVID-19 VACCINE - (MODERNA) [facility]ACCINE - (MODERNA) Unknown Completed [facility] Pneumococcal Unspecified Unknown Completed [facility] Pneumococcal Unspecified Unknown Completed [facility] Pneumococcal Polysaccharide, PPSV23 (PNEUMOVAX) Unknown Completed [facility] Pneumococcal Polysaccharide, PPSV23 (PNEUMOVAX) Unknown Completed [facility] Pneumococcal 13 Conjugate, PCV13 (Prevnar 13) Unknown Completed [facility] TDAP Unknown Completed [facility] Influenza High Dose Unknown Completed [facility] Influenza High Dose Unknown Completed [facility] Pneumococcal Polysaccharide, PPSV23 (PNEUMOVAX) Unknown Completed [facility] Influenza High Dose Unknown Completed [facility] Influenza High Dose Unknown Completed [facility] Influenza Virus Vaccine Unknown Completed [facility] Influenza Virus Vaccine Unknown Completed [facility] Influenza Virus Vaccine Unknown Completed [facility] Pneumococcal Polysaccharide, PPSV23 (PNEUMOVAX) Unknown Completed [facility] Pneumococcal Polysaccharide, PPSV23 (PNEUMOVAX) Unknown Completed [facility] SARS-COV-2 COVID-19 UNSPECIFIED VACCINE Unknown Completed [facility] SARS-COV-2 COVID-19 UNSPECIFIED VACCINE Unknown Completed [facility] Influenza Virus Vaccine Quad IM Multi-dose 6+ MO Unknown Completed [facility] Pneumococcal Polysaccharide, PPSV23 (PNEUMOVAX) Unknown Completed [facility] Influenza Virus Vaccine,quad Im,preserve Free 65+ (FLUAD) Unknown Completed [facility] SARS-COV-2 COVID-19 VACCINE - (MODERNA) [facility] VACCINE - (MODERNA) Unknown Completed [facility] Pneumococcal Unspecified Unknown Completed [facility] Pneumococcal Unspecified Unknown Completed [facility] Pneumococcal Polysaccharide, PPSV23 (PNEUMOVAX) Unknown Completed [facility] Pneumococcal Polysaccharide, PPSV23 (PNEUMOVAX) Unknown Completed [facility] Pneumococcal 13 Conjugate, PCV13 (Prevnar 13) Unknown Completed [facility] TDAP Unknown Completed [facility] Influenza High Dose Unknown Completed [facility] Influenza High Dose Unknown Completed [facility] Pneumococcal Polysaccharide, PPSV23 (PNEUMOVAX) Unknown Completed [facility] Influenza High Dose Unknown Completed [facility] Influenza High Dose Unknown Completed [facility] Influenza Virus Vaccine Unknown Completed [facility] Influenza Virus Vaccine Unknown Completed [facility] Influenza Virus Vaccine Unknown Completed [facility] Pneumococcal Polysaccharide, PPSV23 (PNEUMOVAX) Unknown Completed [facility] Pneumococcal Polysaccharide, PPSV23 (PNEUMOVAX) Unknown Completed [facility] SARS-COV-2 COVID-19 UNSPECIFIED VACCINE Unknown Completed [facility] SARS-COV-2 COVID-19 UNSPECIFIED VACCINE Unknown Completed [facility] Influenza Virus Vaccine Quad IM Multi-dose 6+ MO Unknown Completed [facility] Pneumococcal Polysaccharide, PPSV23 (PNEUMOVAX) Unknown Completed [facility] Influenza Virus Vaccine,quad Im,preserve Free 65+ (FLUAD) Unknown Completed [facility] SARS-COV-2 COVID-19 VACCINE - (MODERNA) Unknown Completed [facility] SARS-COV-2 COVID-19 VACCINE - (MODERNA) Unknown Completed [facility] Pneumococcal Unspecified Unknown Completed [facility] Pneumococcal Unspecified Unknown Completed [facility] Pneumococcal Polysaccharide, PPSV23 (PNEUMOVAX) Unknown Completed [facility] Pneumococcal Polysaccharide, PPSV23 (PNEUMOVAX) Unknown Completed [facility] Pneumococcal 13 Conjugate, PCV13 (Prevnar 13) Unknown Completed [facility] TDAP Unknown Completed [facility] Influenza High Dose Unknown Completed [facility] Influenza High Dose Unknown Completed [facility] Pneumococcal Polysaccharide, PPSV23 (PNEUMOVAX) Unknown Completed [facility] Influenza High Dose Unknown Completed [facility] Influenza High Dose Unknown Completed [facility] Influenza Virus Vaccine Unknown Completed [facility] Influenza Virus Vaccine Unknown Completed [facility] Influenza Virus Vaccine Unknown Completed [facility] Pneumococcal Polysaccharide, PPSV23 (PNEUMOVAX) Unknown Completed [facility] Pneumococcal Polysaccharide, PPSV23 (PNEUMOVAX) Unknown Completed [facility] SARS-COV-2 COVID-19 UNSPECIFIED VACCINE Unknown Completed [facility] SARS-COV-2 COVID-19 UNSPECIFIED VACCINE Unknown Completed [facility] Influenza Virus Vaccine Quad IM Multi-dose 6+ MO Unknown Completed [facility] Pneumococcal Polysaccharide, PPSV23 (PNEUMOVAX) Unknown Completed [facility] Influenza Virus Vaccine,quad Im,preserve Free 65+ (FLUAD) Unknown Completed [facility] SARS-COV-2 COVID-19 VACCINE - (MODERNA) Unknown Completed [facility] SARS-COV-2 COVID-19 VACCINE - (MODERNA) Unknown Completed [facility] Pneumococcal Unspecified Unknown Completed [facility] Pneumococcal Unspecified Unknown Completed [facility] Pneumococcal Polysaccharide, PPSV23 (PNEUMOVAX) Unknown Completed [facility] Pneumococcal Polysaccharide, PPSV23 (PNEUMOVAX) Unknown Completed [facility] Pneumococcal 13 Conjugate, PCV13 (Prevnar 13) Unknown Completed [facility] TDAP Unknown Completed [facility] Influenza High Dose Unknown Completed [facility] Influenza High Dose Unknown Completed [facility] Pneumococcal Polysaccharide, PPSV23 (PNEUMOVAX) Unknown Completed [facility] Influenza High Dose Unknown Completed [facility] Influenza High Dose Unknown Completed [facility] Influenza Virus Vaccine Unknown Completed [facility] Influenza Virus Vaccine Unknown Completed [facility] Influenza Virus Vaccine Unknown Completed [facility] Pneumococcal Polysaccharide, PPSV23 (PNEUMOVAX) Unknown Completed [facility] Pneumococcal Polysaccharide, PPSV23 (PNEUMOVAX) Unknown Completed [facility] SARS-COV-2 COVID-19 UNSPECIFIED VACCINE Unknown Completed [facility] SARS-COV-2 COVID-19 UNSPECIFIED VACCINE Unknown Completed [facility] Influenza Virus Vaccine Quad IM Multi-dose 6+ MO Unknown Completed [facility] Pneumococcal Polysaccharide, PPSV23 (PNEUMOVAX) Unknown Completed [facility] Influenza Virus Vaccine,quad Im,preserve Free 65+ (FLUAD) Unknown Completed [facility] SARS-COV-2 COVID-19 VACCINE - (MODERNA) Unknown Completed [facility] SARS-COV-2 COVID-19 VACCINE - (MODERNA) Unknown Completed [facility] Pneumococcal Unspecified Unknown Completed [facility] Pneumococcal Unspecified Unknown Completed [facility] Pneumococcal Polysaccharide, PPSV23 (PNEUMOVAX) Unknown Completed [facility] Pneumococcal Polysaccharide, PPSV23 (PNEUMOVAX) Unknown Completed [facility] Pneumococcal 13 Conjugate, PCV13 (Prevnar 13) Unknown Completed [facility] TDAP Unknown Completed [facility] Influenza High Dose Unknown Completed [facility] Influenza High Dose Unknown Completed [facility] Pneumococcal Polysaccharide, PPSV23 (PNEUMOVAX) Unknown Completed [facility] Influenza High Dose Unknown Completed [facility] Influenza High Dose Unknown Completed [facility] Influenza Virus Vaccine Unknown Completed [facility] Influenza Virus Vaccine Unknown Completed [facility] Influenza Virus Vaccine Unknown Completed [facility] Pneumococcal Polysaccharide, PPSV23 (PNEUMOVAX) Unknown Completed [facility] Pneumococcal Polysaccharide, PPSV23 (PNEUMOVAX) Unknown Completed [facility] SARS-COV-2 COVID-19 UNSPECIFIED VACCINE Unknown Completed [facility] SARS-COV-2 COVID-19 UNSPECIFIED VACCINE Unknown Completed [facility] Influenza Virus Vaccine Quad IM Multi-dose 6+ MO Unknown Completed [facility] Pneumococcal Polysaccharide, PPSV23 (PNEUMOVAX) Unknown Completed [facility] Influenza Virus Vaccine,quad Im,preserve Free 65+ (FLUAD) Unknown Completed [facility] SARS-COV-2 COVID-19 VACCINE - (MODERNA) Unknown Completed [facility] SARS-COV-2 COVID-19 VACCINE - (MODERNA) Unknown Completed [facility] Pneumococcal Unspecified Unknown Completed [facility] Pneumococcal Unspecified Unknown Completed [facility] Pneumococcal Polysaccharide, PPSV23 (PNEUMOVAX) Unknown Completed [facility] Pneumococcal Polysaccharide, PPSV23 (PNEUMOVAX) Unknown Completed [facility] Pneumococcal 13 Conjugate, PCV13 (Prevnar 13) Unknown Completed [facility] TDAP Unknown Completed [facility] Influenza High Dose Unknown Completed [facility] Influenza High Dose Unknown Completed [facility] Pneumococcal Polysaccharide, PPSV23 (PNEUMOVAX) Unknown Completed [facility] Influenza High Dose Unknown Completed [facility] Influenza High Dose Unknown Completed [facility] Influenza Virus Vaccine Unknown Completed [facility] Influenza Virus Vaccine Unknown Completed [facility] Influenza Virus Vaccine Unknown Completed [facility] Pneumococcal Polysaccharide, PPSV23 (PNEUMOVAX) Unknown Completed [facility] Pneumococcal Polysaccharide, PPSV23 (PNEUMOVAX) Unknown Completed [facility] SARS-COV-2 COVID-19 UNSPECIFIED VACCINE Unknown Completed [facility] SARS-COV-2 COVID-19 UNSPECIFIED VACCINE Unknown Completed [facility] Influenza Virus Vaccine Quad IM Multi-dose 6+ MO Unknown Completed [facility] Pneumococcal Polysaccharide, PPSV23 (PNEUMOVAX) Unknown Completed [facility] Influenza Virus Vaccine,quad Im,preserve Free 65+ (FLUAD) Unknown Completed [facility] SARS-COV-2 COVID-19 VACCINE - (MODERNA) Unknown Completed [facility] SARS-COV-2 COVID-19 VACCINE - (MODERNA) Unknown Completed [facility] Pneumococcal Unspecified Unknown Completed [facility] Pneumococcal Unspecified Unknown Completed [facility] Pneumococcal Polysaccharide, PPSV23 (PNEUMOVAX) Unknown Completed [facility] Pneumococcal Polysaccharide, PPSV23 (PNEUMOVAX) Unknown Completed [facility] Pneumococcal 13 Conjugate, PCV13 (Prevnar 13) Unknown Completed [facility] TDAP Unknown Completed [facility] Influenza High Dose Unknown Completed [facility] Influenza High Dose Unknown Completed [facility] Pneumococcal Polysaccharide, PPSV23 (PNEUMOVAX) Unknown Completed [facility] Influenza High Dose Unknown Completed [facility] Influenza High Dose Unknown Completed [facility] Influenza Virus Vaccine Unknown Completed [facility] Influenza Virus Vaccine Unknown Completed [facility] Influenza Virus Vaccine Unknown Completed [facility] Pneumococcal Polysaccharide, PPSV23 (PNEUMOVAX) Unknown Completed [facility] Pneumococcal Polysaccharide, PPSV23 (PNEUMOVAX) Unknown Completed [facility] SARS-COV-2 COVID-19 UNSPECIFIED VACCINE Unknown Completed [facility] SARS-COV-2 COVID-19 UNSPECIFIED VACCINE Unknown Completed [facility] Influenza Virus Vaccine Quad IM Multi-dose 6+ MO Unknown Completed [facility] Pneumococcal Polysaccharide, PPSV23 (PNEUMOVAX) Unknown Completed [facility] Influenza Virus Vaccine,quad Im,preserve Free 65+ (FLUAD) Unknown Completed [facility] SARS-COV-2 COVID-19 VACCINE - (MODERNA) Unknown Completed [facility] SARS-COV-2 COVID-19 VACCINE - (MODERNA) Unknown Completed [facility] Pneumococcal Unspecified Unknown Completed [facility] Pneumococcal Unspecified Unknown Completed [facility] Pneumococcal Polysaccharide, PPSV23 (PNEUMOVAX) Unknown Completed [facility] Pneumococcal Polysaccharide, PPSV23 (PNEUMOVAX) Unknown Completed [facility] Pneumococcal 13 Conjugate, PCV13 (Prevnar 13) Unknown Completed [facility] TDAP Unknown Completed [facility] Influenza High Dose Unknown Completed [facility] Influenza High Dose Unknown Completed [facility] Pneumococcal Polysaccharide, PPSV23 (PNEUMOVAX) Unknown Completed [facility] Influenza High Dose Unknown Completed [facility] Influenza High Dose Unknown Completed [facility] Influenza Virus Vaccine Unknown Completed [facility] Influenza Virus Vaccine Unknown Completed [facility] Influenza Virus Vaccine Unknown Completed [facility] Pneumococcal Polysaccharide, PPSV23 (PNEUMOVAX) Unknown Completed [facility] Pneumococcal Polysaccharide, PPSV23 (PNEUMOVAX) Unknown Completed [facility] SARS-COV-2 COVID-19 UNSPECIFIED VACCINE Unknown Completed [facility] SARS-COV-2 COVID-19 UNSPECIFIED VACCINE Unknown Completed [facility] Influenza Virus Vaccine Quad IM Multi-dose 6+ MO Unknown Completed [facility] Pneumococcal Polysaccharide, PPSV23 (PNEUMOVAX) Unknown Completed [facility] Influenza Virus Vaccine,quad Im,preserve Free 65+ (FLUAD) Unknown Completed [facility] SARS-COV-2 COVID-19 VACCINE - (MODERNA) Unknown Completed [facility] SARS-COV-2 COVID-19 VACCINE - (MODERNA) Unknown Completed [facility] Pneumococcal Unspecified Unknown Completed [facility] Pneumococcal Unspecified Unknown Completed [facility] Pneumococcal Polysaccharide, PPSV23 (PNEUMOVAX) Unknown Completed [facility] Pneumococcal Polysaccharide, PPSV23 (PNEUMOVAX) Unknown Completed [facility] Pneumococcal 13 Conjugate, PCV13 (Prevnar 13) Unknown Completed [facility] TDAP Unknown Completed [facility] Influenza High Dose Unknown Completed [facility] Influenza High Dose Unknown Completed [facility] Pneumococcal Polysaccharide, PPSV23 (PNEUMOVAX) Unknown Completed [facility] Influenza High Dose Unknown Completed [facility] Influenza High Dose Unknown Completed [facility] Influenza Virus Vaccine Unknown Completed [facility] Influenza Virus Vaccine Unknown Completed [facility] Influenza Virus Vaccine Unknown Completed [facility] Pneumococcal Polysaccharide, PPSV23 (PNEUMOVAX) Unknown Completed [facility] Pneumococcal Polysaccharide, PPSV23 (PNEUMOVAX) Unknown Completed [facility] SARS-COV-2 COVID-19 UNSPECIFIED VACCINE Unknown Completed [facility] SARS-COV-2 COVID-19 UNSPECIFIED VACCINE Unknown Completed [facility] Influenza Virus Vaccine Quad IM Multi-dose 6+ MO Unknown Completed [facility] Pneumococcal Polysaccharide, PPSV23 (PNEUMOVAX) Unknown Completed [facility] Influenza Virus Vaccine,quad Im,preserve Free 65+ (FLUAD) Unknown Completed [facility] SARS-COV-2 COVID-19 VACCINE - (MODERNA) Unknown Completed [facility] SARS-COV-2 COVID-19 VACCINE - (MODERNA) Unknown Completed [facility] Pneumococcal Unspecified Unknown Completed [facility] Pneumococcal Unspecified Unknown Completed [facility] Pneumococcal Polysaccharide, PPSV23 (PNEUMOVAX) Unknown Completed [facility] Pneumococcal Polysaccharide, PPSV23 (PNEUMOVAX) Unknown Completed [facility] Pneumococcal 13 Conjugate, PCV13 (Prevnar 13) Unknown Completed [facility] TDAP Unknown Completed [facility] Influenza High Dose Unknown Completed [facility] Influenza High Dose Unknown Completed [facility] Pneumococcal Polysaccharide, PPSV23 (PNEUMOVAX) Unknown Completed [facility] Influenza High Dose Unknown Completed [facility] Influenza High Dose Unknown Completed [facility] Influenza Virus Vaccine Unknown Completed [facility] Influenza Virus Vaccine Unknown Completed [facility] Influenza Virus Vaccine Unknown Completed [facility] Pneumococcal Polysaccharide, PPSV23 (PNEUMOVAX) Unknown Completed [facility] Pneumococcal Polysaccharide, PPSV23 (PNEUMOVAX) Unknown Completed [facility] SARS-COV-2 COVID-19 UNSPECIFIED VACCINE Unknown Completed [facility] SARS-COV-2 COVID-19 UNSPECIFIED VACCINE Unknown Completed [facility] Influenza Virus Vaccine Quad IM Multi-dose 6+ MO Unknown Completed [facility] Pneumococcal Polysaccharide, PPSV23 (PNEUMOVAX) Unknown Completed [facility] Influenza Virus Vaccine,quad Im,preserve Free 65+ (FLUAD) Unknown Completed [facility] SARS-COV-2 COVID-19 VACCINE - (MODERNA) Unknown Completed [facility] SARS-COV-2 COVID-19 VACCINE - (MODERNA) Unknown Completed [facility] Pneumococcal Unspecified Unknown Completed [facility] Pneumococcal Unspecified Unknown Completed [facility] Pneumococcal Polysaccharide, PPSV23 (PNEUMOVAX) Unknown Completed [facility] Pneumococcal Polysaccharide, PPSV23 (PNEUMOVAX) Unknown Completed [facility] Pneumococcal 13 Conjugate, PCV13 (Prevnar 13) Unknown Completed [facility] TDAP Unknown Completed [facility] Influenza High Dose Unknown Completed [facility] Influenza High Dose Unknown Completed [facility] Pneumococcal Polysaccharide, PPSV23 (PNEUMOVAX) Unknown Completed [facility] Influenza High Dose Unknown Completed [facility] Influenza High Dose Unknown Completed [facility] Influenza Virus Vaccine Unknown Completed [facility] Influenza Virus Vaccine Unknown Completed [facility] Influenza Virus Vaccine Unknown Completed [facility] Pneumococcal Polysaccharide, PPSV23 (PNEUMOVAX) Unknown Completed [facility] Pneumococcal Polysaccharide, PPSV23 (PNEUMOVAX) Unknown Completed [facility] SARS-COV-2 COVID-19 UNSPECIFIED VACCINE Unknown Completed [facility] SARS-COV-2 COVID-19 UNSPECIFIED VACCINE Unknown Completed [facility] Influenza Virus Vaccine Quad IM Multi-dose 6+ MO Unknown Completed [facility] Pneumococcal Polysaccharide, PPSV23 (PNEUMOVAX) Unknown Completed [facility] Influenza Virus Vaccine,quad Im,preserve Free 65+ (FLUAD) Unknown Completed [facility] SARS-COV-2 COVID-19 VACCINE - (MODERNA) Unknown Completed [facility] SARS-COV-2 COVID-19 VACCINE - (MODERNA) Unknown Completed [facility] Pneumococcal Unspecified Unknown Completed [facility] Pneumococcal Unspecified Unknown Completed [facility] Pneumococcal Polysaccharide, PPSV23 (PNEUMOVAX) Unknown Completed [facility] Pneumococcal Polysaccharide, PPSV23 (PNEUMOVAX) Unknown Completed [facility] Pneumococcal 13 Conjugate, PCV13 (Prevnar 13) Unknown Completed [facility] TDAP Unknown Completed [facility] Influenza High Dose Unknown Completed [facility] Influenza High Dose Unknown Completed [facility] Pneumococcal Polysaccharide, PPSV23 (PNEUMOVAX) Unknown Completed [facility] Influenza High Dose Unknown Completed [facility] Influenza High Dose Unknown Completed [facility] Influenza Virus Vaccine Unknown Completed [facility] Influenza Virus Vaccine Unknown Completed [facility] Influenza Virus Vaccine Unknown Completed [facility] Pneumococcal Polysaccharide, PPSV23 (PNEUMOVAX) Unknown Completed [facility] Pneumococcal Polysaccharide, PPSV23 (PNEUMOVAX) Unknown Completed [facility] SARS-COV-2 COVID-19 UNSPECIFIED VACCINE Unknown Completed [facility] SARS-COV-2 COVID-19 UNSPECIFIED VACCINE Unknown Completed [facility] Influenza Virus Vaccine Quad IM Multi-dose 6+ MO Unknown Completed [facility] Pneumococcal Polysaccharide, PPSV23 (PNEUMOVAX) Unknown Completed [facility] Influenza Virus Vaccine,quad Im,preserve Free 65+ (FLUAD) Unknown Completed [facility] SARS-COV-2 COVID-19 VACCINE - (MODERNA) Unknown Completed [facility] SARS-COV-2 COVID-19 VACCINE - (MODERNA) Unknown Completed [facility] Pneumococcal Unspecified Unknown Completed [facility] Pneumococcal Unspecified Unknown Completed [facility] Pneumococcal Polysaccharide, PPSV23 (PNEUMOVAX) Unknown Completed [facility] Pneumococcal Polysaccharide, PPSV23 (PNEUMOVAX) Unknown Completed [facility] Pneumococcal 13 Conjugate, PCV13 (Prevnar 13) Unknown Completed [facility] TDAP Unknown Completed [facility] Influenza High Dose Unknown Completed [facility] Influenza High Dose Unknown Completed [facility] Pneumococcal Polysaccharide, PPSV23 (PNEUMOVAX) Unknown Completed [facility] Influenza High Dose Unknown Completed [facility] Influenza High Dose Unknown Completed [facility] Influenza Virus Vaccine Unknown Completed [facility] Influenza Virus Vaccine Unknown Completed [facility] Influenza Virus Vaccine Unknown Completed [facility] Pneumococcal Polysaccharide, PPSV23 (PNEUMOVAX) Unknown Completed [facility] Pneumococcal Polysaccharide, PPSV23 (PNEUMOVAX) Unknown Completed [facility] SARS-COV-2 COVID-19 UNSPECIFIED VACCINE Unknown Completed [facility] SARS-COV-2 COVID-19 UNSPECIFIED VACCINE Unknown Completed [facility] Influenza Virus Vaccine Quad IM Multi-dose 6+ MO Unknown Completed [facility] Pneumococcal Polysaccharide, PPSV23 (PNEUMOVAX) Unknown Completed [facility] Influenza Virus Vaccine,quad Im,preserve Free 65+ (FLUAD) Unknown Completed [facility] SARS-COV-2 COVID-19 VACCINE - (MODERNA) Unknown Completed [facility] SARS-COV-2 COVID-19 VACCINE - (MODERNA) Unknown Completed [facility] Pneumococcal Unspecified Unknown Completed [facility] Pneumococcal Unspecified Unknown Completed [facility] Pneumococcal Polysaccharide, PPSV23 (PNEUMOVAX) Unknown Completed [facility] Pneumococcal Polysaccharide, PPSV23 (PNEUMOVAX) Unknown Completed [facility] Pneumococcal 13 Conjugate, PCV13 (Prevnar 13) Unknown Completed [facility] TDAP Unknown Completed [facility] Influenza High Dose Unknown Completed [facility] Influenza High Dose Unknown Completed [facility] Pneumococcal Polysaccharide, PPSV23 (PNEUMOVAX) Unknown Completed [facility] Influenza High Dose Unknown Completed [facility] Influenza High Dose Unknown Completed [facility] Influenza Virus Vaccine Unknown Completed [facility] Influenza Virus Vaccine Unknown Completed [facility] Influenza Virus Vaccine Unknown Completed [facility] Pneumococcal Polysaccharide, PPSV23 (PNEUMOVAX) Unknown Completed [facility] Pneumococcal Polysaccharide, PPSV23 (PNEUMOVAX) Unknown Completed [facility] SARS-COV-2 COVID-19 UNSPECIFIED VACCINE Unknown Completed [facility] SARS-COV-2 COVID-19 UNSPECIFIED VACCINE Unknown Completed [facility] Influenza Virus Vaccine Quad IM Multi-dose 6+ MO Unknown Completed [facility] Pneumococcal Polysaccharide, PPSV23 (PNEUMOVAX) Unknown Completed [facility] Influenza Virus Vaccine,quad Im,preserve Free 65+ (FLUAD) Unknown Completed [facility] SARS-COV-2 COVID-19 VACCINE - (MODERNA) Unknown Completed [facility] SARS-COV-2 COVID-19 VACCINE - (MODERNA) Unknown Completed [facility] Pneumococcal Unspecified Unknown Completed [facility] Pneumococcal Unspecified Unknown Completed [facility] Pneumococcal Polysaccharide, PPSV23 (PNEUMOVAX) Unknown Completed [facility] Pneumococcal Polysaccharide, PPSV23 (PNEUMOVAX) Unknown Completed [facility] Pneumococcal 13 Conjugate, PCV13 (Prevnar 13) Unknown Completed [facility] TDAP Unknown Completed [facility] Influenza High Dose Unknown Completed [facility] Influenza High Dose Unknown Completed [facility] Pneumococcal Polysaccharide, PPSV23 (PNEUMOVAX) Unknown Completed [facility] Influenza High Dose Unknown Completed [facility] Influenza High Dose Unknown Completed [facility] Influenza Virus Vaccine Unknown Completed [facility] Influenza Virus Vaccine Unknown Completed [facility] Influenza Virus Vaccine Unknown Completed [facility] Pneumococcal Polysaccharide, PPSV23 (PNEUMOVAX) Unknown Completed [facility] Pneumococcal Polysaccharide, PPSV23 (PNEUMOVAX) Unknown Completed [facility] SARS-COV-2 COVID-19 UNSPECIFIED VACCINE Unknown Completed [facility] SARS-COV-2 COVID-19 UNSPECIFIED VACCINE Unknown Completed [facility] Influenza Virus Vaccine Quad IM Multi-dose 6+ MO Unknown Completed [facility] Pneumococcal Polysaccharide, PPSV23 (PNEUMOVAX) Unknown Completed [facility] Influenza Virus Vaccine,quad Im,preserve Free 65+ (FLUAD) Unknown Completed [facility] SARS-COV-2 COVID-19 VACCINE - (MODERNA) Unknown Completed [facility] SARS-COV-2 COVID-19 VACCINE - (MODERNA) Unknown Completed [facility] Pneumococcal Unspecified Unknown Completed [facility] Pneumococcal Unspecified Unknown Completed [facility] Pneumococcal Polysaccharide, PPSV23 (PNEUMOVAX) Unknown Completed [facility] Pneumococcal Polysaccharide, PPSV23 (PNEUMOVAX) Unknown Completed [facility] Pneumococcal 13 Conjugate, PCV13 (Prevnar 13) Unknown Completed [facility] TDAP Unknown Completed [facility] Influenza High Dose Unknown Completed [facility] Influenza High Dose Unknown Completed [facility] Pneumococcal Polysaccharide, PPSV23 (PNEUMOVAX) Unknown Completed [facility] Influenza High Dose Unknown Completed [facility] Influenza High Dose Unknown Completed [facility] Influenza Virus Vaccine Unknown Completed [facility] Influenza Virus Vaccine Unknown Completed [facility] Influenza Virus Vaccine Unknown Completed [facility] Pneumococcal Polysaccharide, PPSV23 (PNEUMOVAX) Unknown Completed [facility] Pneumococcal Polysaccharide, PPSV23 (PNEUMOVAX) Unknown Completed [facility] SARS-COV-2 COVID-19 UNSPECIFIED VACCINE [facility]NSPEC[facility]IED [facility]ACCINE Unknown Completed [facility] Influenza Virus Vaccine Quad IM Multi-dose 6+ MO Unknown Completed [facility] Pneumococcal Polysaccharide, PPSV23 (PNEUMOVAX) Unknown Completed [facility] Influenza Virus Vaccine,quad Im,preserve Free 65+ (FLUAD) Unknown Completed [facility] SARS-COV-2 COVID-19 VACCINE - (MODERNA) Unknown Completed [facility] SARS-COV-2 COVID-19 VACCINE - (MODERNA) Unknown Completed [facility] Pneumococcal Unspecified Unknown Completed [facility] Pneumococcal Unspecified Unknown Completed [facility] Pneumococcal Polysaccharide, PPSV23 (PNEUMOVAX) Unknown Completed [facility] Pneumococcal Polysaccharide, PPSV23 (PNEUMOVAX) Unknown Completed [facility] Pneumococcal 13 Conjugate, PCV13 (Prevnar 13) Unknown Completed [facility] TDAP Unknown Completed [facility] Influenza High Dose Unknown Completed [facility] Influenza High Dose Unknown Completed [facility] Pneumococcal Polysaccharide, PPSV23 (PNEUMOVAX) Unknown Completed [facility] Influenza High Dose Unknown Completed [facility] Influenza High Dose Unknown Completed [facility] Influenza Virus Vaccine Unknown Completed [facility] Influenza Virus Vaccine Unknown Completed [facility] Influenza Virus Vaccine Unknown Completed [facility] Pneumococcal Polysaccharide, PPSV23 (PNEUMOVAX) Unknown Completed [facility] Pneumococcal Polysaccharide, PPSV23 (PNEUMOVAX) Unknown Completed [facility] SARS-COV-2 COVID-19 UNSPECIFIED VACCINE Unknown Completed [facility] SARS-COV-2 COVID-19 UNSPECIFIED VACCINE Unknown Completed [facility] Influenza Virus Vaccine Quad IM Multi-dose 6+ MO Unknown Completed [facility] Pneumococcal Polysaccharide, PPSV23 (PNEUMOVAX) Unknown Completed [facility] Influenza Virus Vaccine,quad Im,preserve Free 65+ (FLUAD) Unknown Completed [facility] SARS-COV-2 COVID-19 VACCINE - (MODERNA) Unknown Completed [facility] SARS-COV-2 COVID-19 VACCINE - (MODERNA) Unknown Completed [facility] Pneumococcal Unspecified Unknown Completed [facility] Pneumococcal Unspecified Unknown Completed [facility] Pneumococcal Polysaccharide, PPSV23 (PNEUMOVAX) Unknown Completed [facility] Pneumococcal Polysaccharide, PPSV23 (PNEUMOVAX) Unknown Completed [facility] Pneumococcal 13 Conjugate, PCV13 (Prevnar 13) Unknown Completed [facility] TDAP Unknown Completed [facility] Influenza High Dose Unknown Completed [facility] Influenza High Dose Unknown Completed [facility] Pneumococcal Polysaccharide, PPSV23 (PNEUMOVAX) Unknown Completed [facility] Influenza High Dose Unknown Completed [facility] Influenza High Dose Unknown Completed [facility] Influenza Virus Vaccine Unknown Completed [facility] Influenza Virus Vaccine Unknown Completed [facility] Influenza Virus Vaccine Unknown Completed [facility] Pneumococcal Polysaccharide, PPSV23 (PNEUMOVAX) Unknown Completed [facility] Pneumococcal Polysaccharide, PPSV23 (PNEUMOVAX) Unknown Completed [facility] SARS-COV-2 COVID-19 UNSPECIFIED VACCINE Unknown [facility] UNSPECIFIED VACCINE Unknown Completed [facility] Influenza Virus Vaccine Quad IM Multi-dose 6+ MO Unknown Completed [facility] Pneumococcal Polysaccharide, PPSV23 (PNEUMOVAX) Unknown Completed [facility] Influenza Virus Vaccine,quad Im,preserve Free 65+ (FLUAD) Unknown Completed [facility] SARS-COV-2 COVID-19 VACCINE - (MODERNA) Unknown Completed [facility] SARS-COV-2 COVID-19 VACCINE - (MODERNA) Unknown Completed [facility] Pneumococcal Unspecified Unknown Completed [facility] Pneumococcal Unspecified Unknown Completed [facility] Pneumococcal Polysaccharide, PPSV23 (PNEUMOVAX) Unknown Completed [facility] Pneumococcal Polysaccharide, PPSV23 (PNEUMOVAX) Unknown Completed [facility] Pneumococcal 13 Conjugate, PCV13 (Prevnar 13) Unknown Completed [facility] TDAP Unknown Completed [facility] Influenza High Dose Unknown Completed [facility] Influenza High Dose Unknown Completed [facility] Pneumococcal Polysaccharide, PPSV23 (PNEUMOVAX) Unknown Completed [facility] Influenza High Dose Unknown Completed [facility] Influenza High Dose Unknown Completed [facility] Influenza Virus Vaccine Unknown Completed [facility] Influenza Virus Vaccine Unknown Completed [facility] Influenza Virus Vaccine Unknown Completed [facility] Pneumococcal Polysaccharide, PPSV23 (PNEUMOVAX) Unknown Completed [facility] Pneumococcal Polysaccharide, PPSV23 (PNEUMOVAX) Unknown Completed [facility] SARS-COV-2 COVID-19 UNSPECIFIED VACCINE Unknown Completed [facility] SARS-COV-2 COVID-19 UNSPECIFIED VACCINE Unknown Completed [facility] Influenza Virus Vaccine Quad IM Multi-dose 6+ MO Unknown Completed [facility] Pneumococcal Polysaccharide, PPSV23 (PNEUMOVAX) Unknown Completed [facility] Influenza Virus Vaccine,quad Im,preserve Free 65+ (FLUAD) Unknown Completed [facility] SARS-COV-2 COVID-19 VACCINE - (MODERNA) Unknown Completed [facility] SARS-COV-2 COVID-19 VACCINE - (MODERNA) Unknown Completed [facility] Pneumococcal Unspecified Unknown Completed [facility] Pneumococcal Unspecified Unknown Completed [facility] Pneumococcal Polysaccharide, PPSV23 (PNEUMOVAX) Unknown Completed [facility] Pneumococcal Polysaccharide, PPSV23 (PNEUMOVAX) Unknown Completed [facility] Pneumococcal 13 Conjugate, PCV13 (Prevnar 13) Unknown Completed [facility] TDAP Unknown Completed [facility] Influenza High Dose Unknown Completed [facility] Influenza High Dose Unknown Completed [facility] Pneumococcal Polysaccharide, PPSV23 (PNEUMOVAX) Unknown Completed [facility] Influenza High Dose Unknown Completed [facility] Influenza High Dose Unknown Completed [facility] Influenza Virus Vaccine Unknown Completed [facility] Influenza Virus Vaccine Unknown Completed [facility] Influenza Virus Vaccine Unknown Completed [facility] Pneumococcal Polysaccharide, PPSV23 (PNEUMOVAX) Unknown Completed [facility] Pneumococcal Polysaccharide, PPSV23 (PNEUMOVAX) Unknown Completed [facility] SARS-COV-2 COVID-19 UNSPECIFIED VACCINE Unknown Completed [facility] SARS-COV-2 COVID-19 UNSPECIFIED VACCINE Unknown Completed [facility] Influenza Virus Vaccine Quad IM Multi-dose 6+ MO Unknown Completed [facility] Pneumococcal Polysaccharide, PPSV23 (PNEUMOVAX) Unknown Completed [facility] Influenza Virus Vaccine,quad Im,preserve Free 65+ (FLUAD) Unknown Completed [facility] SARS-COV-2 COVID-19 VACCINE - (MODERNA) Unknown Completed [facility] SARS-COV-2 COVID-19 VACCINE - (MODERNA) Unknown Completed [facility] Pneumococcal Unspecified Unknown Completed [facility] Pneumococcal Unspecified Unknown Completed [facility] Pneumococcal Polysaccharide, PPSV23 (PNEUMOVAX) Unknown Completed [facility] Pneumococcal Polysaccharide, PPSV23 (PNEUMOVAX) Unknown Completed [facility] Pneumococcal 13 Conjugate, PCV13 (Prevnar 13) Unknown Completed [facility] TDAP Unknown Completed [facility] Influenza High Dose Unknown Completed [facility] Influenza High Dose Unknown Completed [facility] Pneumococcal Polysaccharide, PPSV23 (PNEUMOVAX) Unknown Completed [facility] Influenza High Dose Unknown Completed [facility] Influenza High Dose Unknown Completed [facility] Influenza Virus Vaccine Unknown Completed [facility] Influenza Virus Vaccine Unknown Completed [facility] Influenza Virus Vaccine Unknown Completed [facility] Pneumococcal Polysaccharide, PPSV23 (PNEUMOVAX) Unknown Completed [facility] Pneumococcal Polysaccharide, PPSV23 (PNEUMOVAX) Unknown Completed [facility] SARS-COV-2 COVID-19 UNSPECIFIED VACCINE Unknown Completed [facility] SARS-COV-2 COVID-19 UNSPECIFIED VACCINE Unknown Completed [facility] Influenza Virus Vaccine Quad IM Multi-dose 6+ MO Unknown Completed [facility] Pneumococcal Polysaccharide, PPSV23 (PNEUMOVAX) Unknown Completed [facility] Influenza Virus Vaccine,quad Im,preserve Free 65+ (FLUAD) Unknown Completed [facility] SARS-COV-2 COVID-19 VACCINE - (MODERNA) Unknown Completed [facility] SARS-COV-2 COVID-19 VACCINE - (MODERNA) Unknown Completed [facility] Pneumococcal Unspecified Unknown Completed [facility] Pneumococcal Unspecified Unknown Completed [facility] Pneumococcal Polysaccharide, PPSV23 (PNEUMOVAX) Unknown Completed [facility] Pneumococcal Polysaccharide, PPSV23 (PNEUMOVAX) Unknown Completed [facility] Pneumococcal 13 Conjugate, PCV13 (Prevnar 13) Unknown Completed [facility] TDAP Unknown Completed [facility] Influenza High Dose Unknown Completed [facility] Influenza High Dose Unknown Completed [facility] Pneumococcal Polysaccharide, PPSV23 (PNEUMOVAX) Unknown Completed [facility] Influenza High Dose Unknown Completed [facility] Influenza High Dose Unknown Completed [facility] Influenza Virus Vaccine Unknown Completed [facility] Influenza Virus Vaccine Unknown Completed [facility] Influenza Virus Vaccine Unknown Completed [facility] Pneumococcal Polysaccharide, PPSV23 (PNEUMOVAX) Unknown Completed [facility] Pneumococcal Polysaccharide, PPSV23 (PNEUMOVAX) Unknown Completed [facility] SARS-COV-2 COVID-19 UNSPECIFIED VACCINE Unknown Completed [facility] SARS-COV-2 COVID-19 UNSPECIFIED VACCINE Unknown Completed [facility] Influenza Virus Vaccine Quad IM Multi-dose 6+ MO Unknown Completed [facility] Pneumococcal Polysaccharide, PPSV23 (PNEUMOVAX) Unknown Completed [facility] Influenza Virus Vaccine,quad Im,preserve Free 65+ (FLUAD) Unknown Completed [facility] SARS-COV-2 COVID-19 VACCINE - (MODERNA) Unknown Completed [facility] SARS-COV-2 COVID-19 VACCINE - (MODERNA) Unknown Completed [facility] Pneumococcal Unspecified Unknown Completed [facility] Pneumococcal Unspecified Unknown Completed [facility] Pneumococcal Polysaccharide, PPSV23 (PNEUMOVAX) Unknown Completed [facility] Pneumococcal Polysaccharide, PPSV23 (PNEUMOVAX) Unknown Completed [facility] Pneumococcal 13 Conjugate, PCV13 (Prevnar 13) Unknown Completed [facility] TDAP Unknown Completed [facility] Influenza High Dose Unknown Completed [facility] Influenza High Dose Unknown Completed [facility] Pneumococcal Polysaccharide, PPSV23 (PNEUMOVAX) Unknown Completed [facility] Influenza High Dose Unknown Completed [facility] Influenza High Dose Unknown Completed [facility] Influenza Virus Vaccine Unknown Completed [facility] Influenza Virus Vaccine Unknown Completed [facility] Influenza Virus Vaccine Unknown Completed [facility] Pneumococcal Polysaccharide, PPSV23 (PNEUMOVAX) Unknown Completed [facility] Pneumococcal Polysaccharide, PPSV23 (PNEUMOVAX) Unknown Completed [facility] SARS-COV-2 COVID-19 UNSPECIFIED VACCINE Unknown Completed [facility] SARS-COV-2 COVID-19 UNSPECIFIED VACCINE Unknown Completed [facility] Influenza Virus Vaccine Quad IM Multi-dose 6+ MO Unknown Completed [facility] Pneumococcal Polysaccharide, PPSV23 (PNEUMOVAX) Unknown Completed [facility] Influenza Virus Vaccine,quad Im,preserve Free 65+ (FLUAD) Unknown Completed [facility] SARS-COV-2 COVID-19 VACCINE - (MODERNA) Unknown Completed [facility] SARS-COV-2 COVID-19 VACCINE - (MODERNA) Unknown Completed [facility] Pneumococcal Unspecified Unknown Completed [facility] Pneumococcal Unspecified Unknown Completed [facility] Pneumococcal Polysaccharide, PPSV23 (PNEUMOVAX) Unknown Completed [facility] Pneumococcal Polysaccharide, PPSV23 (PNEUMOVAX) Unknown Completed [facility] Pneumococcal 13 Conjugate, PCV13 (Prevnar 13) Unknown Completed [facility] TDAP Unknown Completed [facility] Influenza High Dose Unknown Completed [facility] Influenza High Dose Unknown Completed [facility] Pneumococcal Polysaccharide, PPSV23 (PNEUMOVAX) Unknown Completed [facility] Influenza High Dose Unknown Completed [facility] Influenza High Dose Unknown Completed [facility] Influenza Virus Vaccine Unknown Completed [facility] Influenza Virus Vaccine Unknown Completed [facility] Influenza Virus Vaccine Unknown Completed [facility] Pneumococcal Polysaccharide, PPSV23 (PNEUMOVAX) Unknown Completed [facility] Pneumococcal Polysaccharide, PPSV23 (PNEUMOVAX) Unknown Completed [facility] SARS-COV-2 COVID-19 UNSPECIFIED VACCINE Unknown Completed [facility] SARS-COV-2 COVID-19 UNSPECIFIED VACCINE Unknown Completed [facility] Influenza Virus Vaccine Quad IM Multi-dose 6+ MO Unknown Completed [facility] Pneumococcal Polysaccharide, PPSV23 (PNEUMOVAX) Unknown Completed [facility] Influenza Virus Vaccine,quad Im,preserve Free 65+ (FLUAD) Unknown Completed [facility] SARS-COV-2 COVID-19 VACCINE - (MODERNA) Unknown Completed [facility] SARS-COV-2 COVID-19 VACCINE - (MODERNA) Unknown Completed [facility] Pneumococcal Unspecified Unknown Completed [facility] Pneumococcal Unspecified Unknown Completed [facility] Pneumococcal Polysaccharide, PPSV23 (PNEUMOVAX) Unknown Completed [facility] Pneumococcal Polysaccharide, PPSV23 (PNEUMOVAX) Unknown Completed [facility] Pneumococcal 13 Conjugate, PCV13 (Prevnar 13) Unknown Completed [facility] TDAP Unknown Completed [facility] Influenza High Dose Unknown Completed [facility] Influenza High Dose Unknown Completed [facility] Pneumococcal Polysaccharide, PPSV23 (PNEUMOVAX) Unknown Completed [facility] Influenza High Dose Unknown Completed [facility] Influenza High Dose Unknown Completed [facility] Influenza Virus Vaccine Unknown Completed [facility] Influenza Virus Vaccine Unknown Completed [facility] Influenza Virus Vaccine Unknown Completed [facility] Pneumococcal Polysaccharide, PPSV23 (PNEUMOVAX) Unknown Completed [facility] Pneumococcal Polysaccharide, PPSV23 (PNEUMOVAX) Unknown Completed [facility] SARS-COV-2 COVID-19 UNSPECIFIED VACCINE Unknown Completed [facility] SARS-COV-2 COVID-19 UNSPECIFIED VACCINE Unknown Completed [facility] Influenza Virus Vaccine Quad IM Multi-dose 6+ MO Unknown Completed [facility] Pneumococcal Polysaccharide, PPSV23 (PNEUMOVAX) Unknown Completed [facility] Influenza Virus Vaccine,quad Im,preserve Free 65+ (FLUAD) Unknown Completed [facility] SARS-COV-2 COVID-19 VACCINE - (MODERNA) Unknown Completed [facility] SARS-COV-2 COVID-19 VACCINE - (MODERNA) Unknown Completed [facility] Pneumococcal Unspecified Unknown Completed [facility] Pneumococcal Unspecified Unknown Completed [facility] Pneumococcal Polysaccharide, PPSV23 (PNEUMOVAX) Unknown Completed [facility] Pneumococcal Polysaccharide, PPSV23 (PNEUMOVAX) Unknown Completed [facility] Pneumococcal 13 Conjugate, PCV13 (Prevnar 13) Unknown Completed [facility] TDAP Unknown Completed [facility] Influenza High Dose Unknown Completed [facility] Influenza High Dose Unknown Completed [facility] Pneumococcal Polysaccharide, PPSV23 (PNEUMOVAX) Unknown Completed [facility] Influenza High Dose Unknown Completed [facility] Influenza High Dose Unknown Completed [facility] Influenza Virus Vaccine Unknown Completed [facility] Influenza Virus Vaccine Unknown Completed [facility] Influenza Virus Vaccine Unknown Completed [facility] Pneumococcal Polysaccharide, PPSV23 (PNEUMOVAX) Unknown Completed [facility] Pneumococcal Polysaccharide, PPSV23 (PNEUMOVAX) Unknown Completed [facility] SARS-COV-2 COVID-19 UNSPECIFIED VACCINE Unknown [facility]NSPECIFIED VACCINE Unknown [facility] Influenza Virus Vaccine Quad IM Multi-dose 6+ MO Unknown Completed [facility] Pneumococcal Polysaccharide, PPSV23 (PNEUMOVAX) Unknown Completed [facility] Influenza Virus Vaccine,quad Im,preserve Free 65+ (FLUAD) Unknown Completed [facility] SARS-COV-2 COVID-19 VACCINE - (MODERNA) [facility] VACCINE - (MODERNA) Unknown Completed [facility] Pneumococcal Unspecified Unknown Completed [facility] Pneumococcal Unspecified Unknown Completed [facility] Pneumococcal Polysaccharide, PPSV23 (PNEUMOVAX) Unknown Completed [facility] Pneumococcal Polysaccharide, PPSV23 (PNEUMOVAX) Unknown Completed [facility] Pneumococcal 13 Conjugate, PCV13 (Prevnar 13) Unknown Completed [facility] TDAP Unknown Completed [facility] Influenza High Dose Unknown Completed [facility] Influenza High Dose Unknown Completed [facility] Pneumococcal Polysaccharide, PPSV23 (PNEUMOVAX) Unknown Completed [facility] Influenza High Dose Unknown Completed [facility] Influenza High Dose Unknown Completed [facility] Influenza Virus Vaccine Unknown Completed [facility] Influenza Virus Vaccine Unknown Completed [facility] Influenza Virus Vaccine Unknown Completed [facility] Pneumococcal Polysaccharide, PPSV23 (PNEUMOVAX) Unknown Completed [facility] Pneumococcal Polysaccharide, PPSV23 (PNEUMOVAX) Unknown Completed [facility] SARS-COV-2 COVID-19 UNSPECIFIED VACCINE Unknown [facility] SARS-COV-2 COVID-19 UNSPECIFIED VACCINE Unknown Completed [facility] Influenza Virus Vaccine Quad IM Multi-dose 6+ MO Unknown Completed [facility] Pneumococcal Polysaccharide, PPSV23 (PNEUMOVAX) Unknown Completed [facility] Influenza Virus Vaccine,quad Im,preserve Free 65+ (FLUAD) Unknown Completed [facility] SARS-COV-2 COVID-19 VACCINE - (MODERNA) [facility] VACCINE - (MODERNA) Unknown Completed [facility] Pneumococcal Unspecified Unknown Completed [facility] Pneumococcal Unspecified Unknown Completed [facility] Pneumococcal Polysaccharide, PPSV23 (PNEUMOVAX) Unknown Completed [facility] Pneumococcal Polysaccharide, PPSV23 (PNEUMOVAX) Unknown Completed [facility] Pneumococcal 13 Conjugate, PCV13 (Prevnar 13) Unknown Completed [facility] TDAP Unknown Completed [facility] Influenza High Dose Unknown Completed [facility] Influenza High Dose Unknown Completed [facility] Pneumococcal Polysaccharide, PPSV23 (PNEUMOVAX) Unknown Completed [facility] Influenza High Dose Unknown Completed [facility] Influenza High Dose Unknown Completed [facility] Influenza Virus Vaccine Unknown Completed [facility] Influenza Virus Vaccine Unknown Completed [facility] Influenza Virus Vaccine Unknown Completed [facility] Pneumococcal Polysaccharide, PPSV23 (PNEUMOVAX) Unknown Completed [facility] Pneumococcal Polysaccharide, PPSV23 (PNEUMOVAX) Unknown Completed [facility] SARS-COV-2 COVID-19 UNSPECIFIED VACCINE Unknown Completed [facility] SARS-COV-2 COVID-19 UNSPECIFIED VACCINE Unknown Completed [facility] Influenza Virus Vaccine Quad IM Multi-dose 6+ MO Unknown Completed [facility] Pneumococcal Polysaccharide, PPSV23 (PNEUMOVAX) Unknown Completed [facility] Influenza Virus Vaccine,quad Im,preserve Free 65+ (FLUAD) Unknown Completed [facility] SARS-COV-2 COVID-19 VACCINE - (MODERNA) Unknown Completed [facility] SARS-COV-2 COVID-19 VACCINE - (MODERNA) Unknown Completed [facility] Pneumococcal Unspecified Unknown Completed [facility] Pneumococcal Unspecified Unknown Completed [facility] Pneumococcal Polysaccharide, PPSV23 (PNEUMOVAX) Unknown Completed [facility] Pneumococcal Polysaccharide, PPSV23 (PNEUMOVAX) Unknown Completed [facility] Pneumococcal 13 Conjugate, PCV13 (Prevnar 13) Unknown Completed [facility] TDAP Unknown Completed [facility] Influenza High Dose Unknown Completed [facility] Influenza High Dose Unknown Completed [facility] Pneumococcal Polysaccharide, PPSV23 (PNEUMOVAX) Unknown Completed [facility] Influenza High Dose Unknown Completed [facility] Influenza High Dose Unknown Completed [facility] Influenza Virus Vaccine Unknown Completed [facility] Influenza Virus Vaccine Unknown Completed [facility] Influenza Virus Vaccine Unknown Completed [facility] Pneumococcal Polysaccharide, PPSV23 (PNEUMOVAX) Unknown Completed [facility] Pneumococcal Polysaccharide, PPSV23 (PNEUMOVAX) Unknown Completed [facility] SARS-COV-2 COVID-19 UNSPECIFIED VACCINE Unknown Completed [facility] SARS-COV-2 COVID-19 UNSPECIFIED VACCINE Unknown Completed [facility] Influenza Virus Vaccine Quad IM Multi-dose 6+ MO Unknown Completed [facility] Pneumococcal Polysaccharide, PPSV23 (PNEUMOVAX) Unknown Completed [facility] Influenza Virus Vaccine,quad Im,preserve Free 65+ (FLUAD) Unknown Completed [facility] SARS-COV-2 COVID-19 VACCINE - (MODERNA) Unknown Completed [facility] SARS-COV-2 COVID-19 VACCINE - (MODERNA) Unknown Completed [facility] Pneumococcal Unspecified Unknown Completed [facility] Pneumococcal Unspecified Unknown Completed [facility] Pneumococcal Polysaccharide, PPSV23 (PNEUMOVAX) Unknown Completed [facility] Pneumococcal Polysaccharide, PPSV23 (PNEUMOVAX) Unknown Completed [facility] Pneumococcal 13 Conjugate, PCV13 (Prevnar 13) Unknown Completed [facility] TDAP Unknown Completed [facility] Influenza High Dose Unknown Completed [facility] Influenza High Dose Unknown Completed [facility] Pneumococcal Polysaccharide, PPSV23 (PNEUMOVAX) Unknown Completed [facility] Influenza High Dose Unknown Completed [facility] Influenza High Dose Unknown Completed [facility] Influenza Virus Vaccine Unknown Completed [facility] Influenza Virus Vaccine Unknown Completed [facility] Influenza Virus Vaccine Unknown Completed [facility] Pneumococcal Polysaccharide, PPSV23 (PNEUMOVAX) Unknown Completed [facility] Pneumococcal Polysaccharide, PPSV23 (PNEUMOVAX) Unknown Completed [facility] SARS-COV-2 COVID-19 UNSPECIFIED VACCINE Unknown Completed [facility] SARS-COV-2 COVID-19 UNSPECIFIED VACCINE Unknown [facility] Vaccine Quad IM Multi-dose 6+ MO Unknown Completed [facility] Pneumococcal Polysaccharide, PPSV23 (PNEUMOVAX) Unknown Completed [facility] Influenza Virus Vaccine,quad Im,preserve Free 65+ (FLUAD) Unknown Completed [facility] SARS-COV-2 COVID-19 VACCINE - (MODERNA) Unknown Completed [facility] SARS-COV-2 COVID-19 VACCINE - (MODERNA) Unknown Completed [facility] Pneumococcal Unspecified Unknown Completed [facility] Pneumococcal Unspecified Unknown Completed [facility] Pneumococcal Polysaccharide, PPSV23 (PNEUMOVAX) Unknown Completed [facility] Pneumococcal Polysaccharide, PPSV23 (PNEUMOVAX) Unknown Completed [facility] Pneumococcal 13 Conjugate, PCV13 (Prevnar 13) Unknown Completed [facility] TDAP Unknown Completed [facility] Influenza High Dose Unknown Completed [facility] Influenza High Dose Unknown Completed [facility] Pneumococcal Polysaccharide, PPSV23 (PNEUMOVAX) Unknown Completed [facility] Influenza High Dose Unknown Completed [facility] Influenza High Dose Unknown Completed [facility] Influenza Virus Vaccine Unknown Completed [facility] Influenza Virus Vaccine Unknown Completed [facility] Influenza Virus Vaccine Unknown Completed [facility] Pneumococcal Polysaccharide, PPSV23 (PNEUMOVAX) Unknown Completed [facility] Pneumococcal Polysaccharide, PPSV23 (PNEUMOVAX) Unknown Completed [facility] SARS-COV-2 COVID-19 UNSPECIFIED VACCINE Unknown [facility]-19 UNSPECIFIED VACCINE Unknown Completed [facility] Influenza Virus Vaccine Quad IM Multi-dose 6+ MO Unknown Completed [facility] Pneumococcal Polysaccharide, PPSV23 (PNEUMOVAX) Unknown Completed [facility] Influenza Virus Vaccine,quad Im,preserve Free 65+ (FLUAD) Unknown Completed [facility] SARS-COV-2 COVID-19 VACCINE - (MODERNA) Unknown [facility]-19 VACCINE - (MODERNA) Unknown Completed [facility] Pneumococcal Unspecified Unknown Completed [facility] Pneumococcal Unspecified Unknown Completed [facility] Pneumococcal Polysaccharide, PPSV23 (PNEUMOVAX) Unknown Completed [facility] Vital Signs Vital Name Observation Time Observation Value Comments S melissa Systolic blood pressure 2024-01-31 17:44:00 98 mm[Hg] [facility] Diastolic blood pressure 2024-01-31 17:44:00 54 mm[Hg] [facility] Heart rate 2024-01-31 17:44:00 73 /min [facility] Body temperature 2024-01-31 17:44:00 36.94 Sherry [facility] Respiratory rate 2024-01-31 17:44:00 17 /min [facility] Body height 2024-01-31 17:44:00 170.2 cm [facility] Body weight 2024-01-31 17:44:00 109.045 kg wt per pt - declined to weigh [facility] BMI 2024-01-31 17:44:00 37.65 kg/m2 [facility] Oxygen saturation in Arterial blood by Pulse oximetry 2024-01-31 17:44:00 96 /min [facility] Systolic blood pressure 2024-01-31 15:44:00 137 mm[Hg] [facility] Diastolic blood pressure 2024-01-31 15:44:00 74 mm[Hg] [facility] Heart rate 2024-01-31 15:43:00 81 /min [facility] Body temperature 2024-01-31 15:43:00 36.83 Sherry [facility] Respiratory rate 2024-01-31 15:43:00 18 /min [facility] Body height 2024-01-31 15:43:00 170.2 cm [facility] Body weight 2024-01-31 15:43:00 108.863 kg [facility] BMI 2024-01-31 15:43:00 37.59 kg/m2 [facility] Oxygen saturation in Arterial blood by Pulse oximetry 2024-01-31 15:43:00 98 /min [facility] Systolic blood pressure 2024-01-17 01:00:00 171 mm[Hg] [facility] Diastolic blood pressure 2024-01-17 01:00:00 92 mm[Hg] [facility] Heart rate 2024-01-17 01:00:00 84 /min [facility] Respiratory rate 2024-01-17 01:00:00 18 /min [facility] Oxygen saturation in Arterial blood by Pulse oximetry 2024-01-17 01:00:00 96 /min [facility] Body temperature 2024-01-17 00:44:00 36.5 Sherry [facility] Body height 2024-01-16 20:53:00 170.2 cm [facility] Body weight 2024-01-16 20:53:00 109.317 kg [facility] BMI 2024-01-16 20:53:00 37.75 kg/m2 [facility] Systolic blood pressure 2023-12-27 15:40:00 144 mm[Hg] [facility] Diastolic blood pressure 2023-12-27 15:40:00 69 mm[Hg] [facility] Heart rate 2023-12-27 15:39:00 81 /min [facility] Body temperature 2023-12-27 15:39:00 36.72 Sherry [facility] Respiratory rate 2023-12-27 15:39:00 18 /min [facility] Body height 2023-12-27 15:39:00 170.2 cm [facility] Oxygen saturation in Arterial blood by Pulse oximetry 2023-12-27 15:39:00 97 /min [facility] Systolic blood pressure 2023-11-11 17:03:00 160 mm[Hg] [facility] Diastolic blood pressure 2023-11-11 17:03:00 60 mm[Hg] [facility] Heart rate 2023-11-11 16:03:00 76 /min [facility] Body temperature 2023-11-11 16:03:00 36.89 Sherry [facility] Respiratory rate 2023-11-11 16:03:00 18 /min [facility] Body height 2023-11-11 16:03:00 170.2 cm [facility] Body weight 2023-11-11 16:03:00 109.77 kg [facility] BMI 2023-11-11 16:03:00 37.90 kg/m2 [facility] Oxygen saturation in Arterial blood by Pulse oximetry 2023-11-11 16:03:00 95 /min [facility] Systolic blood pressure 2023-10-30 22:39:00 155 mm[Hg] [facility] Diastolic blood pressure 2023-10-30 22:39:00 69 mm[Hg] [facility] Heart rate 2023-10-30 22:39:00 80 /min [facility] Body temperature 2023-10-30 22:39:00 36.72 Sherry [facility] Respiratory rate 2023-10-30 22:39:00 18 /min [facility] Oxygen saturation in Arterial blood by Pulse oximetry 2023-10-30 22:39:00 99 /min [facility] Body height 2023-10-30 19:36:00 170.2 cm [facility] Body weight 2023-10-30 19:36:00 109.317 kg [facility] BMI 2023-10-30 19:36:00 37.75 kg/m2 [facility] Systolic blood pressure 2023-09-21 15:28:00 147 mm[Hg] [facility] Diastolic blood pressure 2023-09-21 15:28:00 65 mm[Hg] [facility] Heart rate 2023-09-21 15:28:00 64 /min [facility] Body temperature 2023-09-21 15:25:00 36.28 Sherry [facility] Body height 2023-09-21 15:25:00 170.2 cm [facility] Body weight 2023-09-21 15:25:00 109.317 kg [facility] BMI 2023-09-21 15:25:00 37.75 kg/m2 [facility] Oxygen saturation in Arterial blood by Pulse oximetry 2023-09-21 15:25:00 98 /min [facility] Systolic blood pressure 2023-08-12 17:07:00 148 mm[Hg] [facility] Diastolic blood pressure 2023-08-12 17:07:00 61 mm[Hg] [facility] Heart rate 2023-08-12 17:07:00 61 /min [facility] Respiratory rate 2023-08-12 17:07:00 18 /min [facility] Body height 2023-08-12 17:07:00 170.2 cm [facility] Body weight 2023-08-12 17:07:00 113.853 kg [facility] BMI 2023-08-12 17:07:00 39.31 kg/m2 [facility] Oxygen saturation in Arterial blood by Pulse oximetry 2023-08-12 17:07:00 99 /min [facility] Systolic blood pressure 2023-07-13 14:42:00 154 mm[Hg] [facility] Diastolic blood pressure 2023-07-13 14:42:00 56 mm[Hg] [facility] Heart rate 2023-07-13 14:36:00 75 /min [facility] Respiratory rate 2023-07-13 14:36:00 18 /min [facility] Body height 2023-07-13 14:36:00 170.2 cm [facility] Body weight 2023-07-13 14:36:00 113.853 kg [facility] BMI 2023-07-13 14:36:00 39.31 kg/m2 [facility] Oxygen saturation in Arterial blood by Pulse oximetry 2023-07-13 14:36:00 96 /min [facility] Systolic blood pressure 2023-07-08 20:05:00 125 mm[Hg] [facility] Diastolic blood pressure 2023-07-08 20:05:00 72 mm[Hg] [facility] Heart rate 2023-07-08 20:05:00 77 /min [facility] Body temperature 2023-07-08 20:05:00 36.33 Sherry [facility] Body height 2023-07-08 20:05:00 170.2 cm [facility] Body weight 2023-07-08 20:05:00 114.216 kg [facility] BMI 2023-07-08 20:05:00 39.44 kg/m2 [facility] Oxygen saturation in Arterial blood by Pulse oximetry 2023-07-08 20:05:00 96 /min [facility] Systolic blood pressure 2023-06-22 16:15:00 133 mm[Hg] [facility] Diastolic blood pressure 2023-06-22 16:15:00 50 mm[Hg] [facility] Heart rate 2023-06-22 16:15:00 83 /min [facility] Oxygen saturation in Arterial blood by Pulse oximetry 2023-06-22 16:15:00 98 /min [facility] Respiratory rate 2023-06-22 16:10:00 17 /min [facility] Body height 2023-06-22 16:10:00 170.2 cm [facility] Body weight 2023-06-22 16:10:00 114.125 kg [facility] BMI 2023-06-22 16:10:00 39.41 kg/m2 [facility] Systolic blood pressure 2023-06-09 15:46:00 174 mm[Hg] [facility] Diastolic blood pressure 2023-06-09 15:46:00 69 mm[Hg] [facility] Heart rate 2023-06-09 15:46:00 63 /min [facility] Body height 2023-06-09 15:46:00 170.2 cm [facility] Body weight 2023-06-09 15:46:00 112.447 kg [facility] BMI 2023-06-09 15:46:00 38.83 kg/m2 [facility] Oxygen saturation in Arterial blood by Pulse oximetry 2023-06-09 15:46:00 96 /min [facility] Systolic blood pressure 2023-06-06 17:35:00 134 mm[Hg] [facility] Diastolic blood pressure 2023-06-06 17:35:00 63 mm[Hg] [facility] Heart rate 2023-06-06 17:35:00 68 /min [facility] Body temperature 2023-06-06 17:35:00 36.39 Sherry [facility] Respiratory rate 2023-06-06 17:35:00 16 /min [facility] Body height 2023-06-06 17:35:00 170.2 cm [facility] Body weight 2023-06-06 17:35:00 115.44 kg [facility] BMI 2023-06-06 17:35:00 39.86 kg/m2 [facility] Oxygen saturation in Arterial blood by Pulse oximetry 2023-06-06 17:35:00 94 /min [facility] Systolic blood pressure 2023-05-23 17:01:00 137 mm[Hg] [facility] Diastolic blood pressure 2023-05-23 17:01:00 50 mm[Hg] [facility] Body height 2023-05-23 17:01:00 170.2 cm [facility] Body weight 2023-05-23 17:01:00 113.853 kg [facility] BMI 2023-05-23 17:01:00 39.31 kg/m2 [facility] Systolic blood pressure 2023-05-05 19:45:00 146 mm[Hg] [facility] Diastolic blood pressure 2023-05-05 19:45:00 53 mm[Hg] [facility] Heart rate 2023-05-05 19:45:00 68 /min [facility] Body temperature 2023-05-05 19:45:00 36.72 Sherry [facility] Respiratory rate 2023-05-05 19:45:00 16 /min [facility] Body height 2023-05-05 19:45:00 170.2 cm [facility] Body weight 2023-05-05 19:45:00 116.574 kg [facility] BMI 2023-05-05 19:45:00 40.25 kg/m2 [facility] Oxygen saturation in Arterial blood by Pulse oximetry 2023-05-05 19:45:00 97 /min [facility] Systolic blood pressure 2023-05-05 15:30:00 114 mm[Hg] [facility] Diastolic blood pressure 2023-05-05 15:30:00 65 mm[Hg] [facility] Heart rate 2023-05-05 15:30:00 71 /min [facility] Body temperature 2023-05-05 15:30:00 35.94 Sherry [facility] Body height 2023-05-05 15:30:00 170.2 cm [facility] Body weight 2023-05-05 15:30:00 116.711 kg [facility] BMI 2023-05-05 15:30:00 40.30 kg/m2 [facility] Oxygen saturation in Arterial blood by Pulse oximetry 2023-05-05 15:30:00 96 /min [facility] Systolic blood pressure 2023-04-27 16:26:00 148 mm[Hg] [facility] Diastolic blood pressure 2023-04-27 16:26:00 61 mm[Hg] [facility] Heart rate 2023-04-27 16:25:00 59 /min [facility] Body temperature 2023-04-27 16:25:00 34.67 Sherry [facility] Respiratory rate 2023-04-27 16:25:00 20 /min [facility] Body height 2023-04-27 16:25:00 170.2 cm [facility] Body weight 2023-04-27 16:25:00 113.354 kg [facility] BMI 2023-04-27 16:25:00 39.14 kg/m2 [facility] Oxygen saturation in Arterial blood by Pulse oximetry 2023-04-27 16:25:00 98 /min [facility] Systolic blood pressure 2023-04-19 16:37:00 116 mm[Hg] [facility] Diastolic blood pressure 2023-04-19 16:37:00 60 mm[Hg] [facility] Heart rate 2023-04-19 16:37:00 52 /min [facility] Body temperature 2023-04-19 16:37:00 36.39 Sherry [facility] Respiratory rate 2023-04-19 16:37:00 18 /min [facility] Oxygen saturation in Arterial blood by Pulse oximetry 2023-04-19 16:37:00 95 /min [facility] Body weight 2023-04-18 09:46:00 108.5 kg [facility] BMI 2023-04-18 09:46:00 37.46 kg/m2 [facility] Body height 2023-04-13 02:12:00 170.2 cm [facility] Heart rate 2023-03-28 15:29:00 65 /min [facility] Respiratory rate 2023-03-28 15:29:00 22 /min [facility] Oxygen saturation in Arterial blood by Pulse oximetry 2023-03-28 15:29:00 96 /min [facility] Systolic blood pressure 2023-03-28 13:10:00 155 mm[Hg] [facility] Diastolic blood pressure 2023-03-28 13:10:00 63 mm[Hg] [facility] Body temperature 2023-03-28 13:10:00 36.22 Sherry [facility] Body weight 2023-03-24 08:16:00 119.438 kg bedscale used - patient unable to stand on scale [facility] BMI 2023-03-24 08:16:00 41.24 kg/m2 [facility] Body height 2023-03-21 14:07:00 170.2 cm [facility] Systolic blood pressure 2023-03-25 13:32:00 157 mm[Hg] [facility] Diastolic blood pressure 2023-03-25 13:32:00 47 mm[Hg] [facility] Heart rate 2023-03-25 12:35:00 64 /min [facility] Body temperature 2023-03-25 12:35:00 36.39 Sherry [facility] Respiratory rate 2023-03-25 12:35:00 20 /min [facility] Oxygen saturation in Arterial blood by Pulse oximetry 2023-03-25 12:35:00 95 /min [facility] Body weight 2023-03-24 08:16:00 119.438 kg bedscale used - patient unable to stand on scale [facility] BMI 2023-03-24 08:16:00 41.24 kg/m2 [facility] Body height 2023-03-21 14:07:00 170.2 cm [facility] Systolic blood pressure 2023-03-21 14:07:00 153 mm[Hg] [facility] Diastolic blood pressure 2023-03-21 14:07:00 76 mm[Hg] [facility] Heart rate 2023-03-21 14:07:00 64 /min [facility] Body temperature 2023-03-21 14:07:00 36.5 Sherry [facility] Respiratory rate 2023-03-21 14:07:00 18 /min [facility] Body height 2023-03-21 14:07:00 170.2 cm [facility] Body weight 2023-03-21 14:07:00 123.2 kg [facility] BMI 2023-03-21 14:07:00 42.54 kg/m2 [facility] Oxygen saturation in Arterial blood by Pulse oximetry 2023-03-21 14:07:00 100 /min [facility] Systolic blood pressure 2023-03-10 21:20:00 150 mm[Hg] [facility] Diastolic blood pressure 2023-03-10 21:20:00 56 mm[Hg] [facility] Heart rate 2023-03-10 21:20:00 66 /min [facility] Body temperature 2023-03-10 21:17:00 37 Sherry [facility] Respiratory rate 2023-03-10 21:17:00 18 /min [facility] Body height 2023-03-10 21:17:00 170.2 cm [facility] Body weight 2023-03-10 21:17:00 117.935 kg [facility] BMI 2023-03-10 21:17:00 40.72 kg/m2 [facility] Oxygen saturation in Arterial blood by Pulse oximetry 2023-03-10 21:17:00 96 /min [facility] Systolic blood pressure 2023-03-08 21:20:00 167 mm[Hg] [facility] Diastolic blood pressure 2023-03-08 21:20:00 77 mm[Hg] [facility] Heart rate 2023-03-08 21:06:00 74 /min [facility] Body temperature 2023-03-08 21:06:00 36.17 Sherry [facility] Body height 2023-03-08 21:06:00 170.2 cm [facility] Body weight 2023-03-08 21:06:00 118.071 kg [facility] BMI 2023-03-08 21:06:00 40.77 kg/m2 [facility] Oxygen saturation in Arterial blood by Pulse oximetry 2023-03-08 21:06:00 97 /min [facility] Systolic blood pressure 2023-02-21 20:39:00 157 mm[Hg] [facility] Diastolic blood pressure 2023-02-21 20:39:00 59 mm[Hg] [facility] Heart rate 2023-02-21 20:39:00 80 /min [facility] Body temperature 2023-02-21 20:39:00 37.44 Sherry [facility] Respiratory rate 2023-02-21 20:39:00 18 /min [facility] Oxygen saturation in Arterial blood by Pulse oximetry 2023-02-21 20:39:00 93 /min [facility] Body weight 2023-02-21 08:00:00 118.978 kg [facility] BMI 2023-02-21 08:00:00 41.08 kg/m2 [facility] Body height 2023-02-21 01:34:00 170.2 cm [facility] Systolic blood pressure 2023-02-08 15:56:00 145 mm[Hg] [facility] Diastolic blood pressure 2023-02-08 15:56:00 70 mm[Hg] [facility] Heart rate 2023-02-08 15:56:00 64 /min [facility] Respiratory rate 2023-02-08 15:56:00 20 /min [facility] Body height 2023-02-08 15:56:00 170.2 cm [facility] Body weight 2023-02-08 15:56:00 118.842 kg [facility] BMI 2023-02-08 15:56:00 41.04 kg/m2 [facility] Oxygen saturation in Arterial blood by Pulse oximetry 2023-02-08 15:56:00 98 /min [facility] Systolic blood pressure 2022-12-24 16:07:00 127 mm[Hg] [facility] Diastolic blood pressure 2022-12-24 16:07:00 47 mm[Hg] [facility] Heart rate 2022-12-24 16:07:00 72 /min [facility] Body temperature 2022-12-24 16:07:00 36.11 Sherry [facility] Respiratory rate 2022-12-24 16:07:00 18 /min [facility] Body height 2022-12-24 16:07:00 170.2 cm [facility] Body weight 2022-12-24 16:07:00 109.408 kg [facility] BMI 2022-12-24 16:07:00 37.78 kg/m2 [facility] Oxygen saturation in Arterial blood by Pulse oximetry 2022-12-24 16:07:00 98 /min [facility] Systolic blood pressure 2022-12-21 15:39:00 113 mm[Hg] [facility] Diastolic blood pressure 2022-12-21 15:39:00 51 mm[Hg] [facility] Heart rate 2022-12-21 15:39:00 73 /min [facility] Body height 2022-12-21 15:39:00 170.2 cm [facility] Body weight 2022-12-21 15:39:00 108.909 kg [facility] BMI 2022-12-21 15:39:00 37.60 kg/m2 [facility] Systolic blood pressure 2022-12-09 14:08:00 116 mm[Hg] [facility] Diastolic blood pressure 2022-12-09 14:08:00 75 mm[Hg] [facility] Heart rate 2022-12-09 14:08:00 74 /min [facility] Body height 2022-12-09 14:08:00 170.2 cm [facility] Body weight 2022-12-09 14:08:00 104.599 kg [facility] BMI 2022-12-09 14:08:00 36.12 kg/m2 [facility] Oxygen saturation in Arterial blood by Pulse oximetry 2022-12-09 14:08:00 100 /min [facility] Systolic blood pressure 2022-09-28 15:54:00 135 mm[Hg] [facility] Diastolic blood pressure 2022-09-28 15:54:00 70 mm[Hg] [facility] Heart rate 2022-09-28 15:54:00 65 /min [facility] Body temperature 2022-09-28 15:54:00 36.94 Sherry [facility] Respiratory rate 2022-09-28 15:54:00 20 /min [facility] Body height 2022-09-28 15:54:00 170.2 cm [facility] Body weight 2022-09-28 15:54:00 116.847 kg [facility] BMI 2022-09-28 15:54:00 40.35 kg/m2 [facility] Oxygen saturation in Arterial blood by Pulse oximetry 2022-09-28 15:54:00 97 /min [facility] Systolic blood pressure 2022-09-07 20:18:00 146 mm[Hg] [facility] Diastolic blood pressure 2022-09-07 20:18:00 56 mm[Hg] [facility] Heart rate 2022-09-07 20:18:00 60 /min [facility] Oxygen saturation in Arterial blood by Pulse oximetry 2022-09-07 20:18:00 96 /min [facility] Respiratory rate 2022-09-07 20:14:00 20 /min [facility] Body height 2022-09-07 20:14:00 170.2 cm [facility] Body weight 2022-09-07 20:14:00 119.296 kg [facility] BMI 2022-09-07 20:14:00 41.19 kg/m2 [facility] Systolic blood pressure 2022-08-31 16:37:00 135 mm[Hg] [facility] Diastolic blood pressure 2022-08-31 16:37:00 50 mm[Hg] [facility] Heart rate 2022-08-31 16:37:00 61 /min [facility] Body temperature 2022-08-31 16:37:00 36.78 Sherry [facility] Body height 2022-08-31 16:37:00 170.2 cm [facility] Body weight 2022-08-31 16:37:00 118.389 kg [facility] BMI 2022-08-31 16:37:00 40.88 kg/m2 [facility] Oxygen saturation in Arterial blood by Pulse oximetry 2022-08-31 16:37:00 96 /min [facility] Body temperature 2022-08-30 19:10:00 36.17 Sherry [facility] Body height 2022-08-30 19:10:00 170.2 cm [facility] Body weight 2022-08-30 19:10:00 119.205 kg [facility] BMI 2022-08-30 19:10:00 41.16 kg/m2 [facility] Systolic blood pressure 2022-08-13 17:33:00 140 mm[Hg] [facility] Diastolic blood pressure 2022-08-13 17:33:00 84 mm[Hg] [facility] Heart rate 2022-08-13 17:33:00 76 /min [facility] Oxygen saturation in Arterial blood by Pulse oximetry 2022-08-13 17:33:00 98 /min [facility] Respiratory rate 2022-08-13 17:30:00 20 /min [facility] Body height 2022-08-13 17:30:00 170.2 cm [facility] Body weight 2022-08-13 17:30:00 117.119 kg [facility] BMI 2022-08-13 17:30:00 40.44 kg/m2 [facility] Systolic blood pressure 2022-07-30 17:33:00 175 mm[Hg] [facility] Diastolic blood pressure 2022-07-30 17:33:00 66 mm[Hg] [facility] Heart rate 2022-07-30 17:32:00 81 /min [facility] Body temperature 2022-07-30 17:32:00 36.5 Sherry [facility] Body weight 2022-07-30 17:32:00 115.214 kg [facility] BMI 2022-07-30 17:32:00 39.78 kg/m2 [facility] Oxygen saturation in Arterial blood by Pulse oximetry 2022-07-30 17:32:00 100 /min [facility] Systolic blood pressure 2022-07-20 20:28:00 118 mm[Hg] [facility] Diastolic blood pressure 2022-07-20 20:28:00 60 mm[Hg] [facility] Heart rate 2022-07-20 20:28:00 52 /min [facility] Respiratory rate 2022-07-20 20:28:00 17 /min [facility] Body weight 2022-07-20 20:28:00 109.487 kg Per patient [facility] BMI 2022-07-20 20:28:00 37.80 kg/m2 [facility] Oxygen saturation in Arterial blood by Pulse oximetry 2022-07-20 20:28:00 91 /min [facility] Systolic blood pressure 2022-07-15 17:24:00 134 mm[Hg] [facility] Diastolic blood pressure 2022-07-15 17:24:00 56 mm[Hg] [facility] Heart rate 2022-07-15 17:24:00 63 /min [facility] Body temperature 2022-07-15 17:24:00 36.61 Sherry [facility] Body height 2022-07-15 17:24:00 170.2 cm [facility] Body weight 2022-07-15 17:24:00 111.585 kg [facility] BMI 2022-07-15 17:24:00 38.53 kg/m2 [facility] Oxygen saturation in Arterial blood by Pulse oximetry 2022-07-15 17:24:00 97 /min [facility] Systolic blood pressure 2022-07-05 18:00:00 154 mm[Hg] [facility] Diastolic blood pressure 2022-07-05 18:00:00 43 mm[Hg] [facility] Heart rate 2022-07-05 18:00:00 87 /min [facility] Body temperature 2022-07-05 18:00:00 37 Sherry [facility] Respiratory rate 2022-07-05 18:00:00 21 /min [facility] Oxygen saturation in Arterial blood by Pulse oximetry 2022-07-05 18:00:00 96 /min [facility] Body weight 2022-06-30 14:33:00 114.488 kg [facility] BMI 2022-06-30 14:33:00 39.53 kg/m2 [facility] Body height 2022-06-26 23:36:00 170.2 cm [facility] Systolic blood pressure 2022-06-08 16:55:00 141 mm[Hg] [facility] Diastolic blood pressure 2022-06-08 16:55:00 63 mm[Hg] [facility] Heart rate 2022-06-08 16:43:00 83 /min [facility] Body weight 2022-06-08 16:43:00 118.389 kg [facility] BMI 2022-06-08 16:43:00 40.88 kg/m2 [facility] Oxygen saturation in Arterial blood by Pulse oximetry 2022-06-08 16:43:00 96 /min [facility] Body temperature 2022-06-01 17:47:00 36.44 Sherry [facility] Body height 2022-06-01 17:47:00 170.2 cm [facility] Body weight 2022-06-01 17:47:00 116.574 kg [facility] BMI 2022-06-01 17:47:00 40.25 kg/m2 [facility] Systolic blood pressure 2022-05-10 19:38:00 107 mm[Hg] [facility] Diastolic blood pressure 2022-05-10 19:38:00 64 mm[Hg] [facility] Heart rate 2022-05-10 19:38:00 86 /min [facility] Body temperature 2022-05-10 19:38:00 37.06 Sherry [facility] Body height 2022-05-10 19:38:00 170.2 cm [facility] Body weight 2022-05-10 19:38:00 115.214 kg [facility] BMI 2022-05-10 19:38:00 39.78 kg/m2 [facility] Oxygen saturation in Arterial blood by Pulse oximetry 2022-05-10 19:38:00 97 /min [facility] Systolic blood pressure 2022-05-10 16:53:00 124 mm[Hg] [facility] Diastolic blood pressure 2022-05-10 16:53:00 60 mm[Hg] [facility] Heart rate 2022-05-10 16:53:00 91 /min [facility] Body weight 2022-05-10 16:49:00 115.486 kg [facility] BMI 2022-05-10 16:49:00 39.88 kg/m2 [facility] Oxygen saturation in Arterial blood by Pulse oximetry 2022-05-10 16:49:00 98 /min [facility] Systolic blood pressure 2022-04-29 15:55:00 146 mm[Hg] [facility] Diastolic blood pressure 2022-04-29 15:55:00 68 mm[Hg] [facility] Heart rate 2022-04-29 15:53:00 91 /min [facility] Body temperature 2022-04-29 15:53:00 36.78 Sherry [facility] Body weight 2022-04-29 15:53:00 116.121 kg [facility] BMI 2022-04-29 15:53:00 40.10 kg/m2 [facility] Oxygen saturation in Arterial blood by Pulse oximetry 2022-04-29 15:53:00 98 /min [facility] Systolic blood pressure 2022-04-22 14:08:00 127 mm[Hg] [facility] Diastolic blood pressure 2022-04-22 14:08:00 71 mm[Hg] [facility] Heart rate 2022-04-22 14:08:00 82 /min [facility] Body temperature 2022-04-22 14:08:00 36.56 Sherry [facility] Body height 2022-04-22 14:08:00 170.2 cm [facility] Body weight 2022-04-22 14:08:00 118.661 kg [facility] BMI 2022-04-22 14:08:00 40.97 kg/m2 [facility] Oxygen saturation in Arterial blood by Pulse oximetry 2022-04-22 14:08:00 97 /min [facility] Systolic blood pressure 2022-04-07 16:33:00 139 mm[Hg] [facility] Diastolic blood pressure 2022-04-07 16:33:00 63 mm[Hg] [facility] Heart rate 2022-04-07 16:33:00 86 /min [facility] Body temperature 2022-04-07 16:33:00 36.83 Sherry [facility] Body weight 2022-04-07 16:33:00 114.125 kg [facility] BMI 2022-04-07 16:33:00 39.41 kg/m2 [facility] Oxygen saturation in Arterial blood by Pulse oximetry 2022-04-07 16:33:00 96 /min [facility] Systolic blood pressure 2022-03-29 18:48:00 105 mm[Hg] [facility] Diastolic blood pressure 2022-03-29 18:48:00 52 mm[Hg] [facility] Heart rate 2022-03-29 18:48:00 96 /min [facility] Body height 2022-03-29 18:48:00 170.2 cm [facility] Body weight 2022-03-29 18:48:00 114.669 kg [facility] BMI 2022-03-29 18:48:00 39.59 kg/m2 [facility] Oxygen saturation in Arterial blood by Pulse oximetry 2022-03-29 18:48:00 92 /min [facility] Systolic blood pressure 2022-03-25 16:22:00 146 mm[Hg] [facility] Diastolic blood pressure 2022-03-25 16:22:00 77 mm[Hg] [facility] Heart rate 2022-03-25 16:21:00 84 /min [facility] Body temperature 2022-03-25 16:21:00 36.89 Sherry [facility] Body height 2022-03-25 16:21:00 170.2 cm [facility] Body weight 2022-03-25 16:21:00 111.766 kg [facility] BMI 2022-03-25 16:21:00 38.59 kg/m2 [facility] Oxygen saturation in Arterial blood by Pulse oximetry 2022-03-25 16:21:00 96 /min [facility] Systolic blood pressure 2022-03-16 15:57:00 120 mm[Hg] [facility] Diastolic blood pressure 2022-03-16 15:57:00 70 mm[Hg] [facility] Heart rate 2022-03-16 15:57:00 98 /min [facility] Body temperature 2022-03-16 15:57:00 36.33 Sherry [facility] Respiratory rate 2022-03-16 15:57:00 17 /min [facility] Body height 2022-03-16 15:57:00 170.2 cm [facility] [facility] Body weight 2022-03-16 15:57:00 110.814 kg [facility] BMI 2022-03-16 15:57:00 38.26 kg/m2 [facility] Oxygen saturation in Arterial blood by Pulse oximetry 2022-03-16 15:57:00 98 /min [facility] Systolic blood pressure 2022-02-25 13:06:00 133 mm[Hg] [facility] Diastolic blood pressure 2022-02-25 13:06:00 57 mm[Hg] [facility] Heart rate 2022-02-25 13:06:00 88 /min [facility] Body height 2022-02-25 13:06:00 170.2 cm [facility] Body weight 2022-02-25 13:06:00 111.131 kg [facility] BMI 2022-02-25 13:06:00 38.37 kg/m2 [facility] Oxygen saturation in Arterial blood by Pulse oximetry 2022-02-25 13:06:00 96 /min [facility] BP Diastolic 2021-12-10 00:00:00 78 mm[Hg] [facility] Height 2021-12-10 00:00:00 67 [in_i] [facility] BMI (Body Mass Index) 2021-12-10 00:00:00 41.3 kg/m2 [facility] BP Systolic 2021-12-10 00:00:00 140 mm[Hg] [facility] Body Weight 2021-12-10 00:00:00 4224 [oz_av] [facility] BP Diastolic 2021-08-31 00:00:00 70 mm[Hg] [facility] Height 2021-08-31 00:00:00 67 [in_i] [facility] BMI (Body Mass Index) 2021-08-31 00:00:00 38.2 kg/m2 [facility] BP Systolic 2021-08-31 00:00:00 116 mm[Hg] [facility] Body Weight 2021-08-31 00:00:00 3904 [oz_av] [facility] BP Diastolic 2021-07-30 00:00:00 92 mm[Hg] [facility] Height 2021-07-30 00:00:00 67 [in_i] [facility] BP Systolic 2021-07-30 00:00:00 164 mm[Hg] [facility] BP Diastolic 2021-05-18 00:00:00 72 mm[Hg] [facility] Height 2021-05-18 00:00:00 67 [in_i] [facility] BMI (Body Mass Index) 2021-05-18 00:00:00 39.8 kg/m2 [facility] BP Systolic 2021-05-18 00:00:00 124 mm[Hg] [facility] Body Weight 2021-05-18 00:00:00 4064 [oz_av] [facility] BP Diastolic 2021-04-13 00:00:00 64 mm[Hg] [facility] Height 2021-04-13 00:00:00 67 [in_i] [facility] BMI (Body Mass Index) 2021-04-13 00:00:00 39.5 kg/m2 [facility] BP Systolic 2021-04-13 00:00:00 138 mm[Hg] [facility] Body Weight 2021-04-13 00:00:00 4032 [oz_av] [facility] BP Diastolic 2021-02-17 00:00:00 64 mm[Hg] [facility] Height 2021-02-17 00:00:00 67 [in_i] [facility] BMI (Body Mass Index) 2021-02-17 00:00:00 37.7 kg/m2 [facility] BP Systolic 2021-02-17 00:00:00 122 mm[Hg] [facility] Body Weight 2021-02-17 00:00:00 3856 [oz_av] [facility] BP Diastolic 2021-01-13 00:00:00 64 mm[Hg] [facility] Height 2021-01-13 00:00:00 67 [in_i] [facility] BMI (Body Mass Index) 2021-01-13 00:00:00 39.2 kg/m2 [facility] BP Systolic 2021-01-13 00:00:00 130 mm[Hg] [facility] Body Weight 2021-01-13 00:00:00 4000 [oz_av] [facility] BP Diastolic 2020-11-27 00:00:00 64 mm[Hg] [facility] Height 2020-11-27 00:00:00 67 [in_i] [facility] BMI (Body Mass Index) 2020-11-27 00:00:00 38.8 kg/m2 [facility] BP Systolic 2020-11-27 00:00:00 132 mm[Hg] [facility] Body Weight 2020-11-27 00:00:00 3968 [oz_av] [facility] BP Diastolic 2020-10-30 00:00:00 64 mm[Hg] [facility] Height 2020-10-30 00:00:00 67 [in_i] [facility] BP Systolic 2020-10-30 00:00:00 118 mm[Hg] [facility] BP Diastolic 2020-10-09 00:00:00 72 mm[Hg] [facility] Height 2020-10-09 00:00:00 67 [in_i] [facility] BMI (Body Mass Index) 2020-10-09 00:00:00 36 kg/m2 [facility] BP Systolic 2020-10-09 00:00:00 126 mm[Hg] [facility] Body Weight 2020-10-09 00:00:00 3680 [oz_av] [facility] Height 2020-09-09 00:00:00 67 [in_i] [facility] BP Diastolic 2020-08-07 00:00:00 62 mm[Hg] [facility] Height 2020-08-07 00:00:00 67 [in_i] [facility] BMI (Body Mass Index) 2020-08-07 00:00:00 36.3 kg/m2 [facility] BP Systolic 2020-08-07 00:00:00 114 mm[Hg] [facility] Body Weight 2020-08-07 00:00:00 3712 [oz_av] [facility] BP Diastolic 2020-07-10 00:00:00 74 mm[Hg] [facility] Height 2020-07-10 00:00:00 67 [in_i] [facility] BMI (Body Mass Index) 2020-07-10 00:00:00 38.8 kg/m2 [facility] BP Systolic 2020-07-10 00:00:00 124 mm[Hg] [facility] Body Weight 2020-07-10 00:00:00 3968 [oz_av] [facility] Procedures Procedure Date / Time Performed Performing Clinician Source EKG-12 LEAD 2024-01-17 00:29:15 [facility] LIPASE 2024-01-16 22:32:00 Jus Shahzad [facility] TROPONIN I 2024-01-16 22:32:00 Jus Shahzad [facility] COMP. METABOLIC PANEL (04652) 2024-01-16 22:32:00 [facility] 2024-01-16 22:32[facility]00 [facility] 2024-01-16 21:59:00 [facility], >11 YRS, IM 2023-11-11 16:49:17 [facility] 2023-11-11 00:00:00 Orestes Israel [facility] LACTIC ACID WHOLE BLOOD 2023-10-30 21:36:00 Daniella Mao [facility] BASIC METABOLIC PANEL (NA, K, CL, CO2, GLUCOSE, BUN, CREATININE, CA) 2023-10-30 21:25:00 Daniella Hawk [facility] CBC WITH DIFF 2023-10-30 21:25:00 Daniella Hawk U [facility] DUPLEX VENOUS LEG RIGHT - BY VASCULAR LAB 2023-10-04 20:11:58 Steph Nur [facility] HEALTH - OTHER 2023-09-06 06:01:00 Doctor Brock castrosigned, [facility] HEALTH - OTHER 2023-08-08 06:01:00 Doctor U nassigned, [facility] DME/SUPPLY JUSTIFICATION 2023-07-25 06:01:00 Doc tor Unassigned, [facility] - OTHER 2023-06-29 06:01:00 Doctor Brock castrosigned, [facility] MAGNESIUM 2023-06-22 16:58:00 Jamshid Early [facility] COMP. METABOLIC PANEL (43842) 2023-06-22 16:58:00 Jamshid Early [facility] CBC WITH DIFF 2023-06-22 16:58:00 Jamshid Early [facility] N-TERMINAL PRO-BNP 2023-06-22 16:58:00 Jamshid Early [facility] - OTHER 2023-06-21 06:01:00 Doctor Brock farias, [facility] XR ANKLE 3+ VW RIGHT 2023-06-06 20:24:31 Nehal Titus [facility] POCT HEMOGLOBIN A1C TEST 2023-05-23 17:05:00 Erick Larios [facility] HOME HEALTH 485 2023-05-20 06:01:00 Doctor Unass igned, [facility] PHYSICIAN ORDERS 2023-05-05 05:01:00 Doctor Unas signed, [facility] POCT GLUCOSE (AUTOMATED) 2023-04-19 16:41:00 Rachel Alvarenga [facility] POCT GLUCOSE (AUTOMATED) 2023-04-19 13:19:00 Remi, D [facility] BASIC METABOLIC PANEL (NA, K, CL, CO2, GLUCOSE, BUN, CREATININE, CA) 2023-04-19 09:36:00 Leila Marmolejo [facility] CBC WITH DIFF 2023-04-19 09:36:00 Leila Marmolejo [facility] POCT GLUCOSE (AUTOMATED) 2023-04-19 04:44:00 Rachel Alvarenga [facility] POCT GLUCOSE (AUTOMATED) 2023-04-19 01:22:00 Rachel Alvarenga [facility] POCT GLUCOSE (AUTOMATED) 2023-04-18 21:33:00 Rachel Alvarenga [facility] XR CHEST 1 VW 2023-04-18 17:25:00 Mumtaz San [facility] POCT GLUCOSE (AUTOMATED) 2023-04-18 16:57:00 Rachel Alvarenga [facility] POCT GLUCOSE (AUTOMATED) 2023-04-18 13:05:00 Rachel Alvarenga [facility] BASIC METABOLIC PANEL (NA, K, CL, CO2, GLUCOSE, BUN, CREATININE, CA) 2023-04-18 09:26:00 Mumtaz San [facility] CBC WITHOUT DIFF 2023-04-18 09:26:00 Mumtaz San [facility] POCT GLUCOSE (AUTOMATED) 2023-04-18 01:43:00 Rachel Alvarenga [facility] POCT GLUCOSE (AUTOMATED) 2023-04-17 21:43:00 Rachel Alvarenga [facility] BASIC METABOLIC PANEL (NA, K, CL, CO2, GLUCOSE, BUN, CREATININE, CA) 2023-04-17 18:18:00 Mumtaz San [facility] CBC WITH DIFF 2023-04-17 18:18:00 Mumtaz San [facility] N-TERMINAL PRO-BNP 2023-04-17 18:18:00 Jamshid Early [facility] POCT GLUCOSE (AUTOMATED) 2023-04-17 16:43:00 Rachel Alvarenga [facility] VANCOMYCIN TROUGH 2023-04-17 14:40:00 Bladimir Ferraro [facility] POCT GLUCOSE (AUTOMATED) 2023-04-17 12:41:00 Rachel Alvarenga [facility] POCT GLUCOSE (AUTOMATED) 2023-04-17 01:12:00 Rachel Alvarenga [facility] POCT GLUCOSE (AUTOMATED) 2023-04-16 21:24:00 Rachel Alvarenga [facility] POCT GLUCOSE (AUTOMATED) 2023-04-16 17:36:00 Rachel Alvarenga [facility] POCT GLUCOSE (AUTOMATED) 2023-04-16 16:51:00 Rachel Alvarenga [facility] POCT GLUCOSE (AUTOMATED) 2023-04-16 12:51:00 Rachel Alvarenga [facility] POCT GLUCOSE (AUTOMATED) 2023-04-16 12:50:00 Rachel Alvarenga [facility] MAGNESIUM 2023-04-16 10:40:00 [facility]23-04-16 10:40:00 [facility] BAS[facility] MET[facility]OLIC PANEL (NA, K, CL, CO2, GLUCOSE, BUN, CREATININE, CA) 2023-04-16 10:40:00 Ronan [facility] N-TERMINAL PRO-BNP 2023-04-16 10:40:00 [facility] ([facility]OMATED) 2023-04-16 01:45:00 Rachel Alvarenga [facility] POCT GLUCOSE (AUTOMATED) 2023-04-15 21:37:00 Rachel Alvarenga [facility] VANCOMYCIN TROUGH 2023-04-15 17:05:00 Jaleel Boyle [facility] POCT GLUCOSE (AUTOMATED) 2023-04-15 16:45:00 Rachel Alvarenga [facility] POCT GLUCOSE (AUTOMATED) 2023-04-15 12:48:00 Rachel Alvarenga [facility] MAGNESIUM 2023-04-15 09:35:00 [facility] 2023-04-15 09:35:00 [place], [facility] BASIC METABOLIC PANEL (NA, K, CL, CO2, GLUCOSE, BUN, CREATININE, CA) 2023-04-15 09:35:00 [facility] 2023-04-15 09:35:00 Bladimir Ferraro [facility] N-TERMINAL PRO-BNP 2023-04-15 09:35:00 [facility] PO[facility] GLUCOSE (AUTOMATED) 2023-04-15 01:48:00 Rachel Alvarenga [facility] POCT GLUCOSE (AUTOMATED) 2023-04-14 21:38:00 Rachel Alvarenga [facility] POCT GLUCOSE (AUTOMATED) 2023-04-14 16:52:00 Rachel Alvarenga [facility] POCT GLUCOSE (AUTOMATED) 2023-04-14 12:57:00 Rachel Alvarenga [facility] MAGNESIUM 2023-04-14 10:22:00 [facility]14 10:22:00 Ronan [facility] BASIC METABOLIC PANEL (NA, K, CL, CO2, GLUCOSE, BUN, CREATININE, CA) 2023-04-14 10:22:00 [facility] WITH DIFF 2023-04-14 10:22:00 Bladimir Ferr[facility] N-TERMINAL PRO-BNP 2023-04-14 10:22:00 [facility] POCT GLUCOSE (AUTOMATED) 2023-04-14 02:28:00 Rachel Alvarenga [facility] POCT GLUCOSE (AUTOMATED) 2023-04-13 22:40:00 Rachel Alvarenga [facility] POCT GLUCOSE (AUTOMATED) 2023-04-13 16:56:00 Rachel Alvarenga [facility] POCT GLUCOSE (AUTOMATED) 2023-04-13 13:09:00 Rachel Alvarenga [facility] DENNISE AURIS SURVEILLANCE BY PCR (INFECTION CONTROL PURPOSES) 2023-04-13 04:20:00 Sam Meredith [facility] CT HEAD WO CONTRAST 2023-04-12 23:46:00 Tootie Chau [facility] HB ECG ROUTINE & RHYTHM STRIP 2023-04-12 22:46:51 Tootie Chau [facility] XR CHEST 1 VW 2023-04-12 22:32:34 Tootie Chau Celsa [facility] BLOOD CULTURE SCREEN 2023-04-12 21:44:00 Tootie Chau [facility] BLOOD CULTURE SCREEN 2023-04-12 21:40:00 Tootie Chau [facility] URINALYSIS 2023-04-12 21:40:00 Tootie Chau [facility] URINE CULTURE 2023-04-12 21:40:00 Tootie Chau [facility] AC PANEL 20 + LACTIC ACID 2023-04-12 21:16:00 Tootie Chau [facility] TROPONIN I 2023-04-12 21:00:00 Tootie Chau [facility] COMP. METABOLIC PANEL (63444) 2023-04-12 21:00:00 Tootie Chau [facility] CBC WITH DIFF 2023-04-12 21:00:00 Tootie Chau [facility] N-TERMINAL PRO-BNP 2023-04-12 21:00:00 Tootie Chau [facility] HOME HEALTH - OTHER 2023-04-04 05:01:00 Doctor Brock farias, [facility] POCT GLUCOSE (AUTOMATED) 2023-03-28 12:30:00 Elisa Soares [facility] POCT GLUCOSE (AUTOMATED) 2023-03-28 12:30:00 Elisa Soares [facility] PHOSPHORUS 2023-03-28 08:50:00 [facility] 2023-03-28 08:50:00 Dariana Mcfarlane [facility] BASIC METABOLIC PANEL (NA, K, CL, CO2, GLUCOSE, BUN, CREATININE, CA) 2023-03-28 08:50:00 Maddie Mcfarlane [facility] CBC WITH DIFF 2023-03-28 08:50:00 Dariana Mcfarlane [facility] PHOSPHORUS 2023-03-28 08:50:00 Denys [facility] MAGNESIUM 2023-03-28 08:50:00 Denys [facility] BASIC METABOLIC PANEL (NA, K, CL, CO2, GLUCOSE, BUN, CREATININE, CA) 2023-03-28 08:50:00 Maddie Mcfarlane [facility] CBC WITH DIFF 2023-03-28 08:50:00 Dariana Mcfarlane [facility] POCT GLUCOSE (AUTOMATED) 2023-03-28 01:06:00 Fany [facility] POCT GLUCOSE (AUTOMATED) 2023-03-28 01:06:00 Fany [facility] POCT GLUCOSE (AUTOMATED) 2023-03-27 21:38:00 Fany [facility] POCT GLUCOSE (AUTOMATED) 2023-03-27 21:38:00 Fany [facility] POCT GLUCOSE (AUTOMATED) 2023-03-27 16:47:00 Fany [facility] POCT GLUCOSE (AUTOMATED) 2023-03-27 16:47:00 Fany [facility] ACTIVATED PARTIAL THRMPLAS AMANUEL 2023-03-27 14:55:00 Janey João [facility] ACTIVATED PARTIAL THRMPLAS AMANUEL 2023-03-27 14:55:00 João Toth [facility] POCT GLUCOSE (AUTOMATED) 2023-03-27 13:13:00 Fany [facility] POCT GLUCOSE (AUTOMATED) 2023-03-27 13:13:00 Fany [facility] PHOSPHORUS 2023-03-27 10:15:00 [facility] 2023-03-27 10:15:00 Reji Del Toro [facility] BASIC METABOLIC PANEL (NA, K, CL, CO2, GLUCOSE, BUN, CREATININE, CA) 2023-03-27 10:15:00 Reji Del Toro [facility] CBC WITH DIFF 2023-03-27 10:15:00 [facility] 2023-03-27 10:15:00 [facility] 2023-03-27 10:15:00 Reji Del Toro [facility] BASIC METABOLIC PANEL (NA, K, CL, CO2, GLUCOSE, BUN, CREATININE, CA) 2023-03-27 10:15:00 Reji Del Toro [facility] CBC WITH DIFF 2023-03-27 10:15:00 Reji Del Toro [facility] ACTIVATED PARTIAL THRMPLAS AMANUEL 2023-03-27 03:32:00 João Toth [facility] ACTIVATED PARTIAL THRMPLAS AMANUEL 2023-03-27 03:32:00 João Toth [facility] POCT GLUCOSE (AUTOMATED) 2023-03-27 02:59:00 Fany [facility] POCT GLUCOSE (AUTOMATED) 2023-03-27 02:59:00 Fany [facility] POCT GLUCOSE (AUTOMATED) 2023-03-26 21:45:00 Fany [facility] POCT GLUCOSE (AUTOMATED) 2023-03-26 21:45:00 Fany [facility] ACTIVATED PARTIAL THRMPLAS AMANUEL 2023-03-26 21:34:00 João Toth [facility] ACTIVATED PARTIAL THRMPLAS AMANUEL 2023-03-26 21:34:00 Janey João [facility] POCT GLUCOSE (AUTOMATED) 2023-03-26 17:37:00 Fany [facility] POCT GLUCOSE (AUTOMATED) 2023-03-26 17:37:00 Fany [facility] POCT GLUCOSE (AUTOMATED) 2023-03-26 12:18:00 Elisa Soares [facility] POCT GLUCOSE (AUTOMATED) 2023-03-26 12:18:00 Elisa Soares [facility] ACTIVATED PARTIAL THRMPLAS AMANUEL 2023-03-26 11:12:00 João Toth [facility] ACTIVATED PARTIAL THRMPLAS AMANUEL 2023-03-26 11:12:00 João Toth [facility] PHOSPHORUS 2023-03-26 06:27:00 [facility] 2023-03-26 06:27:00 Reji Del Toro [facility] BASIC METABOLIC PANEL (NA, K, CL, CO2, GLUCOSE, BUN, CREATININE, CA) 2023-03-26 06:27:00 Reji Del Toro [facility] CBC WITH DIFF 2023-03-26 06:27:00 Reji Del Toro U [facility] ACTIVATED PARTIAL THRMPLAS AMANUEL 2023-03-26 06:27:00 João Toth [facility] PHOSPHORUS 2023-03-26 06:27:00 [facility] 2023-03-26 06:27:00 Reji Del Toro [facility] BASIC METABOLIC PANEL (NA, K, CL, CO2, GLUCOSE, BUN, CREATININE, CA) 2023-03-26 06:27:00 Reji Del Toro [facility] CBC WITH DIFF 2023-03-26 06:27:00 Reji Del Toro U [facility] ACTIVATED PARTIAL THRMPLAS AMANUEL 2023-03-26 06:27:00 João Toth [facility] POCT GLUCOSE (AUTOMATED) 2023-03-26 03:12:00 Elisa Soares [facility] POCT GLUCOSE (AUTOMATED) 2023-03-26 03:12:00 Elisa Soares [facility] ACTIVATED PARTIAL THRMPLAS AMANUEL 2023-03-25 23:27:00 João Toth [facility] ACTIVATED PARTIAL THRMPLAS AMANUEL 2023-03-25 23:27:00 João Toth [facility] POCT GLUCOSE (AUTOMATED) 2023-03-25 23:07:00 Fany [facility] POCT GLUCOSE (AUTOMATED) 2023-03-25 23:07:00 Fany [facility] POCT GLUCOSE (AUTOMATED) 2023-03-25 20:42:00 Fany [facility] POCT GLUCOSE (AUTOMATED) 2023-03-25 20:42:00 Fany [facility] BASIC METABOLIC PANEL (NA, K, CL, CO2, GLUCOSE, BUN, CREATININE, CA) 2023-03-25 20:22:00 João Toth [facility] CBC WITH DIFF 2023-03-25 20:22:00 Shruthi Toth [facility] BASIC METABOLIC PANEL (NA, K, CL, CO2, GLUCOSE, BUN, CREATININE, CA) 2023-03-25 20:22:00 João Toth [facility] CBC WITH DIFF 2023-03-25 20:22:00 Shruthi Toth [facility] INTUBATION 2023-03-25 17:50:00 Evy Krishnamurthy [facility] CAROTID ANGIOGRAPHY 2023-03-25 17:11:00 Jerome Soares [facility] CAROTID STENTING 2023-03-25 17:11:00 Jerome Soares [facility] ANGIOPLASTY 2023-03-25 17:11:00 Jerome Soares [facility] CAROTID ANGIOGRAPHY 2023-03-25 17:11:00 Jerome Soares [facility] CAROTID STENTING 2023-03-25 17:11:00 Jerome Soares [facility] ANGIOPLASTY 2023-03-25 17:11:00 Jerome Soares [facility] POCT GLUCOSE (AUTOMATED) 2023-03-25 15:52:00 Fany, Sh [facility] POCT GLUCOSE (AUTOMATED) 2023-03-25 15:52:00 Fany [facility] POCT GLUCOSE (AUTOMATED) 2023-03-25 12:35:00 Fany [facility] POCT GLUCOSE (AUTOMATED) 2023-03-25 12:35:00 Fany [facility] PHOSPHORUS 2023-03-25 06:40:00 [facility] 2023-03-25 06:40:00 [facility] BASIC METABOLIC PANEL (NA, K, CL, CO2, GLUCOSE, BUN, CREATININE, CA) 2023-03-25 06:40:00 Reji Del Toro [facility] CBC WITH DIFF 2023-03-25 06:40:00 Reji Del Toro U [facility] ACTIVATED PARTIAL THRMPLAS AMANUEL 2023-03-25 06:40:00 João Toth [facility] PHOSPHORUS 2023-03-25 06:40:00 Reji [facility] 2023-03-25 06:40:00 [facility]IC PANEL (NA, K, CL, CO2, GLUCOSE, BUN, CREATININE, CA) 2023-03-25 06:40:00 Reji Del Toro [facility] CBC WITH DIFF 2023-03-25 06:40:00 Reji Del Toro U [facility] ACTIVATED PARTIAL THRMPLAS AMANUEL 2023-03-25 06:40:00 João Toth [facility] POCT GLUCOSE (AUTOMATED) 2023-03-25 01:05:00 Fany [facility] POCT GLUCOSE (AUTOMATED) 2023-03-25 01:05:00 Fany [facility] POCT GLUCOSE (AUTOMATED) 2023-03-24 22:34:00 Fany [facility] POCT GLUCOSE (AUTOMATED) 2023-03-24 22:34:00 Elisa Soares [facility] ACTIVATED PARTIAL THRMPLAS AMANUEL 2023-03-24 22:05:00 João Toth [facility] ACTIVATED PARTIAL THRMPLAS AMANUEL 2023-03-24 22:05:00 João Toth [facility] POCT GLUCOSE (AUTOMATED) 2023-03-24 20:01:00 Elisa Soares [facility] POCT GLUCOSE (AUTOMATED) 2023-03-24 20:01:00 Fany [facility] AC PANEL 21 + LACTIC ACID 2023-03-24 18:04:00 [facility] AC PANEL 21 + LACTIC ACID 2023-03-24 18:04:00 [facility] POCT GLUCOSE (AUTOMATED) 2023-03-24 16:59:00 Fany [facility] POCT GLUCOSE (AUTOMATED) 2023-03-24 16:59:00 Fany [facility] ACTIVATED PARTIAL THRMPLAS AMANUEL 2023-03-24 15:13:00 João Toth [facility] HB ABO GROUPING 2023-03-24 15:13:00 Shruthi Toth [facility] ACTIVATED PARTIAL THRMPLAS AMANUEL 2023-03-24 15:13:00 João Toth [facility] HB ABO GROUPING 2023-03-24 15:13:00 Shruthi Toth [facility] POCT GLUCOSE (AUTOMATED) 2023-03-24 13:40:00 Fany [facility] POCT GLUCOSE (AUTOMATED) 2023-03-24 13:40:00 Fany [facility] PHOSPHORUS 2023-03-24 10:46:00 [facility] 2023-03-24 10:46:00 Reji Del Toro Un [facility] BASIC METABOLIC PANEL (NA, K, CL, CO2, GLUCOSE, BUN, CREATININE, CA) 2023-03-24 10:46:00 Reji Del Toro [facility] CBC WITH DIFF 2023-03-24 10:46:00 [facility] 2023-03-24 10:46:00 [facility] 2023-03-24 10:46:00 [facility] BASIC METABOLIC PANEL (NA, K, CL, CO2, GLUCOSE, BUN, CREATININE, CA) 2023-03-24 10:46:00 Reji Del Toro [facility] CBC WITH DIFF 2023-03-24 10:46:00 Reji Del Toro [facility] POCT GLUCOSE (AUTOMATED) 2023-03-24 01:35:00 Fany [facility] POCT GLUCOSE (AUTOMATED) 2023-03-24 01:35:00 Fany, [facility] POCT GLUCOSE (AUTOMATED) 2023-03-23 22:42:00 Fany, [facility] POCT GLUCOSE (AUTOMATED) 2023-03-23 22:42:00 Fany, [facility] POCT GLUCOSE (AUTOMATED) 2023-03-23 18:41:00 Fany, [facility] POCT GLUCOSE (AUTOMATED) 2023-03-23 18:41:00 Fany, [facility] POCT GLUCOSE (AUTOMATED) 2023-03-23 13:02:00 Fany, [facility] POCT GLUCOSE (AUTOMATED) 2023-03-23 13:02:00 Fany, [facility] PHOSPHORUS 2023-03-23 10:35:00 [facility] 2023-03-23 10:35:00 Reji Del Toro [facility] BASIC METABOLIC PANEL (NA, K, CL, CO2, GLUCOSE, BUN, CREATININE, CA) 2023-03-23 10:35:00 Reji Del Toro [facility] CBC WITH DIFF 2023-03-23 10:35:00 Reji Del Toro [facility] PHOSPHORUS 2023-03-23 10:35:00 [facility]ver[facility]23-03-23 10:35:00 Reji Del Toro Un [facility] BASIC METABOLIC PANEL (NA, K, CL, CO2, GLUCOSE, BUN, CREATININE, CA) 2023-03-23 10:35:00 Reji Del Toro [facility] CBC WITH DIFF 2023-03-23 10:35:00 Reji Del Toro U [facility] POCT GLUCOSE (AUTOMATED) 2023-03-23 01:40:00 Fany [facility] POCT GLUCOSE (AUTOMATED) 2023-03-23 01:40:00 Fany [facility] POCT GLUCOSE (AUTOMATED) 2023-03-22 22:38:00 Fany [facility] POCT GLUCOSE (AUTOMATED) 2023-03-22 22:38:00 Fany [facility] POCT GLUCOSE (AUTOMATED) 2023-03-22 17:00:00 Fany [facility] POCT GLUCOSE (AUTOMATED) 2023-03-22 17:00:00 Fany [facility] POCT GLUCOSE (AUTOMATED) 2023-03-22 17:00:00 Fany [facility] XR CHEST 1 VW 2023-03-22 13:47:00 Jett Patel [facility] XR CHEST 1 VW 2023-03-22 13:47:00 Jett Patel [facility] XR CHEST 1 VW 2023-03-22 13:47:00 Jett Patel [facility] POCT GLUCOSE (AUTOMATED) 2023-03-22 12:52:00 Fany [facility] POCT GLUCOSE (AUTOMATED) 2023-03-22 12:52:00 Fany [facility] POCT GLUCOSE (AUTOMATED) 2023-03-22 12:52:00 Fany [facility] POCT GLUCOSE (AUTOMATED) 2023-03-22 10:44:00 Elisa Soares [facility] POCT GLUCOSE (AUTOMATED) 2023-03-22 10:44:00 Fany [facility] POCT GLUCOSE (AUTOMATED) 2023-03-22 10:44:00 Fany [facility] PHOSPHORUS 2023-03-22 09:25:00 Nkechi Lopez [facility] MAGNESIUM 2023-03-22 09:25:00 Nkechi Lopez [facility] BASIC METABOLIC PANEL (NA, K, CL, CO2, GLUCOSE, BUN, CREATININE, CA) 2023-03-22 09:25:00 Jennifer Lopez [facility] CBC WITH DIFF 2023-03-22 09:25:00 Nkechi Lopez [facility] POCT GLUCOSE (AUTOMATED) 2023-03-22 09:25:00 Fany [facility] PHOSPHORUS 2023-03-22 09:25:00 Nkechi Lopez [facility] MAGNESIUM 2023-03-22 09:25:00 Nkechi Lopez [facility] BASIC METABOLIC PANEL (NA, K, CL, CO2, GLUCOSE, BUN, CREATININE, CA) 2023-03-22 09:25:00 Jennifer Lopez [facility] CBC WITH DIFF 2023-03-22 09:25:00 Nkechi Lopez [facility] POCT GLUCOSE (AUTOMATED) 2023-03-22 09:25:00 Fany [facility] PHOSPHORUS 2023-03-22 09:25:00 Nkechi Lopez [facility] MAGNESIUM 2023-03-22 09:25:00 Nkechi Lopez [facility] BASIC METABOLIC PANEL (NA, K, CL, CO2, GLUCOSE, BUN, CREATININE, CA) 2023-03-22 09:25:00 Jennifer Lopez [facility] CBC WITH DIFF 2023-03-22 09:25:00 Nkechi Lopez [facility] POCT GLUCOSE (AUTOMATED) 2023-03-22 09:25:00 Fany, Sh [facility] AC PANEL 21 + LACTIC ACID 2023-03-22 07:11:00 Maribell [facility] AC PANEL 21 + LACTIC ACID 2023-03-22 07:11:00 Maribell [facility] AC PANEL 21 + LACTIC ACID 2023-03-22 07:11:00 Maribell [facility] POCT GLUCOSE (AUTOMATED) 2023-03-22 05:06:00 Fany [facility] POCT GLUCOSE (AUTOMATED) 2023-03-22 05:06:00 Fany [facility] POCT GLUCOSE (AUTOMATED) 2023-03-22 05:06:00 Fany [facility] AC PANEL 21 + LACTIC ACID 2023-03-22 02:57:00 Maribell [facility] AC PANEL 21 + LACTIC ACID 2023-03-22 02:57:00 Maribell [facility] AC PANEL 21 + LACTIC ACID 2023-03-22 02:57:00 Maribell [facility] AC PANEL 20 + LACTIC ACID 2023-03-22 00:27:00 Maribell [facility] AC PANEL 20 + LACTIC ACID 2023-03-22 00:27:00 Maribell [facility] AC PANEL 20 + LACTIC ACID 2023-03-22 00:27:00 Maribell [facility] POCT GLUCOSE (AUTOMATED) 2023-03-21 21:41:00 Fany [facility] POCT GLUCOSE (AUTOMATED) 2023-03-21 21:41:00 Fany [facility] POCT GLUCOSE (AUTOMATED) 2023-03-21 21:41:00 Fany [facility] PHOSPHORUS 2023-03-21 21:36:00 [facility]-21 21:36:00 [facility]IC [facility]OLIC PANEL (NA, K, CL, CO2, GLUCOSE, BUN, CREATININE, CA) 2023-03-21 21:36:00 Maribell [facility] PHOSPHORUS 2023-03-21 21:36:00 [facility]23-03-21 21:36:00 [facility] BASIC METABOLIC PANEL (NA, K, CL, CO2, GLUCOSE, BUN, CREATININE, CA) 2023-03-21 21:36:00 Maribell [facility] PHOSPHORUS 2023-03-21 21:36:00 [facility]23-03-21 21:36:00 [facility]OLIC PANEL (NA, K, CL, CO2, GLUCOSE, BUN, CREATININE, CA) 2023-03-21 21:36:00 Maribell [facility] FL TIME OR (NON-REPORTABLE) 2023-03-21 21:19:16 Janey João [facility] FL TIME OR (NON-REPORTABLE) 2023-03-21 21:19:16 Janey João [facility] FL TIME OR (NON-REPORTABLE) 2023-03-21 21:19:16 Janey João [facility] AC PANEL 20 + LACTIC ACID 2023-03-21 21:14:00 Maribell [facility] AC PANEL 20 + LACTIC ACID 2023-03-21 21:14:00 Maribell [facility] AC PANEL 20 + LACTIC ACID 2023-03-21 21:14:00 Maribell [facility] CBC WITH DIFF 2023-03-21 20:54:00 [facility] 2023-03-21 20:54:00 Sean Reyna [facility] ACTIVATED PARTIAL THRMPLAS AMANUEL 2023-03-21 20:54:00 Maribell [facility] MRSA / MSSA SCREEN BY PCR, RHEA 2023-03-21 20:54:00 Jennifer Lopez [facility] CBC WITH DIFF 2023-03-21 20:54:00 Maribell [facility] PROTHROMBIN TIME / INR 2023-03-21 20:54:00 Maribell Sean [facility] ACTIVATED PARTIAL THRMPLAS AMANUEL 2023-03-21 20:54:00 Maribell [facility] MRSA / MSSA SCREEN BY PCR, [facility] 2023-03-21 20:54:00 Jennifer Lopez [facility] CBC WITH DIFF 2023-03-21 20:54:00 [facility] / INR 2023-03-21 20:54:00 Maribell Sean [facility] ACTIVATED PARTIAL THRMPLAS AMANUEL 2023-03-21 20:54:00 Maribell [facility] MRSA / MSSA SCREEN BY PCR, [facility] 2023-03-21 20:54:00 Jennifer Lopez [facility] POCT GLUCOSE (AUTOMATED) 2023-03-21 20:44:00 Fany [facility] POCT GLUCOSE (AUTOMATED) 2023-03-21 20:44:00 Fany [facility] POCT GLUCOSE (AUTOMATED) 2023-03-21 20:44:00 Fany [facility] ARTERIOGRAM 2023-03-21 15:41:00 Jerome Soares [facility] VASCULAR STENTING 2023-03-21 15:41:00 [facility] EXTREMITY ANGIOPLASTY 2023-03-21 15:41:00 Jerome Soares [facility] ARTERIOGRAM 2023-03-21 15:41:00 Jerome Soares [facility] VASCULAR STENTING 2023-03-21 15:41:00 [facility] EXTREMITY ANGIOPLASTY 2023-03-21 15:41:00 Fany [facility] POCT GLUCOSE (AUTOMATED) 2023-03-21 14:48:00 Fany [facility] POCT GLUCOSE (AUTOMATED) 2023-03-21 14:48:00 Fany, [facility] POCT GLUCOSE (AUTOMATED) 2023-03-21 14:48:00 [facility] AND TREATMENT 2023-03-21 13:54:37 Doctor Unassigned, [facility] CONSENT/REFUSAL FOR DIAGNOSIS AND TREATMENT 2023-03-21 13:54:37 Doctor Unassigned, [facility] CONSENT/REFUSAL FOR DIAGNOSIS AND TREATMENT 2023-03-21 13:54:37 Doctor Unassigned, [facility] ASSIGNMENT OF BENEFITS 2023-03-21 13:53:03 Docto r Unassigned, [facility] ASSIGNMENT OF BENEFITS 2023-03-21 13:53:03 Docto r Unassigned, [facility] ASSIGNMENT OF BENEFITS 2023-03-21 13:53:03 Docto r Unassigned, [facility] HOME HEALTH - OTHER 2023-03-15 05:01:00 Doctor Brock farias, [facility] ASSIGNMENT OF BENEFITS 2023-03-08 20:40:56 Docto r Unassigned, [facility] POCT GLUCOSE (AUTOMATED) 2023-02-21 22:01:00 Jamal Meredith [facility] POCT GLUCOSE (AUTOMATED) 2023-02-21 16:55:00 Jamal Meredith [facility] CAROTID DUPLEX BILATERAL - BY VASCULAR LAB 2023-02-21 16:46:00 Bladimir Ferraro [facility] POCT GLUCOSE (AUTOMATED) 2023-02-21 13:09:00 Jamal Meredith [facility] TROPONIN I 2023-02-21 10:40:00 [facility] THYRO[facility] HORMONE 2023-02-21 10:40:00 Sam Meredith [facility] LIPID PANEL (24150)(TOTAL CHOLESTEROL, TRIGLYCERIDES, HDL) 2023-02-21 10:40:00 Sam Meredith [facility] GLYCOSYLATED HEMOGLOBIN (A1C) 2023-02-21 10:40:00 Sam Meredith [facility] LACTIC ACID WHOLE BLOOD 2023-02-21 04:33:00 Do betty Culp [facility] XR HIPS 3 VW LEFT 2023-02-21 02:42:18 Ramírez Culp [facility] LACTIC ACID WHOLE BLOOD 2023-02-21 01:56:00 Do betty Culp [facility] LIPASE 2023-02-21 01:43:00 Ramírez Culp [facility] TROPONIN I 2023-02-21 01:43:00 Ramírez Culp [facility] COMP. METABOLIC PANEL (82994) 2023-02-21 01:43:00 Ramírez Culp [facility] CBC WITH DIFF 2023-02-21 01:43:00 Ramírez Culp [facility] URINALYSIS 2023-02-21 01:43:00 Ramírez Culp [facility] N-TERMINAL PRO-BNP 2023-02-21 01:43:00 Ramírez Culp [facility] URINE DRUG (IMMUNOASSAY) - COMPREHENSIVE DRUG SCREEN W/O REFLEX 2023-02-21 01:43:00 Ramírez Culp [facility] PATIENT FINANCIAL RESPONSIBILITY - ALL FORMS 2023-02-08 05:01:00 Doctor Unassigned, [facility] HEALTH - OTHER 2023-01-28 05:01:00 Doctor U nassigned, [facility] PATIENT QUESTIONNAIRE 2023-01-19 05:01:00 Doctor Unassigned, [facility] HEALTH 485 2023-01-09 05:01:00 Doctor Unass igned, [facility] PATIENT QUESTIONNAIRE 2022-12-21 05:01:00 Doctor Unassigned, [facility] HEALTH - OTHER 2022-12-17 05:01:00 Doctor U nassigned, [facility] - OTHER 2022-12-14 05:01:00 Doctor U nassigned, [facility] ASSIGNMENT OF BENEFITS 2022-12-09 13:47:13 Docto r Unassigned, [facility] POCT URINALYSIS 2022-12-09 00:00:00 Brian [facility] 485 2022-11-10 05:01:00 Doctor Unass igned, [facility] REFERRAL- REQUEST/RESPONSE 2022-10-28 05:01:00 D octor Unassigned, [facility] EXTERNAL PROVIDER RECORDS 2022-10-15 05:01:00 Do ctor Unassigned, [facility] MAGNESIUM 2022-09-28 17:16:00 Brian Israel [facility] FERRITIN SERUM 2022-09-28 17:16:00 Brian Israel [facility] FREE T4 2022-09-28 17:16:00 Brian Israel [facility] THYROID STIMULATING HORMONE 2022-09-28 17:16:00 Brian Israel [facility] IRON PANEL 2022-09-28 17:16:00 Brian Israel [facility] GLYCOSYLATED HEMOGLOBIN (A1C) 2022-09-28 17:16:00 Brian Israel [facility] PATIENT QUESTIONNAIRE 2022-09-28 05:01:00 Doctor Unassigned, [facility] PHYSICIAN ORDERS 2022-09-27 05:01:00 Doctor Ricas signed, [facility] AUTHORIZATION FOR RELEASE OF PHI 2022-09-22 05:01:00 Doctor Unassigned, [facility] - OTHER 2022-09-18 05:01:00 Doctor Brock castrosijulio, [facility] US RETROPERITONEAL COMPLETE 2022-09-13 17:22:29 Jamshid Eraly [facility] 485 2022-09-11 06:01:00 Doctor Unass igned, [facility] EXTERNAL PROVIDER - ADC CARDIOLOGY 2022-09-07 06:01:00 Doctor Unassigned, [facility] - OTHER 2022-08-03 06:01:00 Doctor Brock farias, [facility] POCT GLUCOSE (AUTOMATED) 2022-07-05 22:16:00 [facility] 2022-07-05 17:17:00 Gypsy [facility] POCT GLUCOSE (AUTOMATED) 2022-07-05 13:18:00 Patel Betancur [facility] MAGNESIUM 2022-07-05 09:26:00 Bladimir Ferraro [facility] BASIC METABOLIC PANEL (NA, K, CL, CO2, GLUCOSE, BUN, CREATININE, CA) 2022-07-05 09:26:00 [facility] 2022-07-05 09:26:00 Bladimir Ferraro [facility] N-TERMINAL PRO-BNP 2022-07-05 09:26:00 Ronan [facility] POCT GLUCOSE (AUTOMATED) 2022-07-05 09:25:00 Gypsy [facility] POCT GLUCOSE (AUTOMATED) 2022-07-05 06:07:00 Gypsy [facility] POCT GLUCOSE (AUTOMATED) 2022-07-05 02:18:00 Gypsy [facility] POCT GLUCOSE (AUTOMATED) 2022-07-04 22:20:00 Gypsy [facility] POCT GLUCOSE (AUTOMATED) 2022-07-04 21:16:00 Gypsy [facility] POCT GLUCOSE (AUTOMATED) 2022-07-04 17:07:00 Gypsy [facility] POCT GLUCOSE (AUTOMATED) 2022-07-04 13:18:00 Gypsy [facility] MAGNESIUM 2022-07-04 10:21:00 [facility] BASIC METABOLIC PANEL (NA, K, CL, CO2, GLUCOSE, BUN, CREATININE, CA) 2022-07-04 10:21:00 Ronan [facility] N-TERMINAL PRO-BNP 2022-07-04 10:21:00 Ronan [facility] POCT GLUCOSE (AUTOMATED) 2022-07-04 06:31:00 Abdullah, [facility] POCT GLUCOSE (AUTOMATED) 2022-07-04 01:48:00 Gypsy [facility] POCT GLUCOSE (AUTOMATED) 2022-07-03 22:08:00 Patel Betancur [facility] MAGNESIUM 2022-07-03 19:39:00 Bladimir Ferraro [facility] TROPONIN I 2022-07-03 19:39:00 Ronan [facility] BASIC METABOLIC PANEL (NA, K, CL, CO2, GLUCOSE, BUN, CREATININE, CA) 2022-07-03 19:39:00 Ronan [facility] N-TERMINAL PRO-BNP 2022-07-03 19:39:00 Ronan [facility] POCT GLUCOSE (AUTOMATED) 2022-07-03 17:16:00 Gypsy [facility] CBC WITH DIFF 2022-07-03 16:20:00 Ronan [facility] POCT GLUCOSE (AUTOMATED) 2022-07-03 13:28:00 Gypsy [facility] POCT GLUCOSE (AUTOMATED) 2022-07-03 10:52:00 Gypsy [facility] POCT GLUCOSE (AUTOMATED) 2022-07-03 06:08:00 Gypsy [facility] POCT GLUCOSE (AUTOMATED) 2022-07-03 02:16:00 Gypsy [facility] POCT GLUCOSE (AUTOMATED) 2022-07-02 22:11:00 Gypsy [facility] POCT GLUCOSE (AUTOMATED) 2022-07-02 17:11:00 Gypsy [facility] POCT GLUCOSE (AUTOMATED) 2022-07-02 13:15:00 Gypsy [facility] MAGNESIUM 2022-07-02 10:20:[facility]22-07-02 10:20:00 Ronan [facility] BASIC METABOLIC PANEL (NA, K, CL, CO2, GLUCOSE, BUN, CREATININE, CA) 2022-07-02 10:20:00 Ronan [facility] LIPID PANEL (77011)(TOTAL CHOLESTEROL, TRIGLYCERIDES, HDL) 2022-07-02 10:20:00 Ronan [facility] CBC WITH DIFF 2022-07-02 10:20:00 Ronan [facility] N-TERMINAL PRO-BNP 2022-07-02 10:20:00 Ronan [facility] POCT GLUCOSE (AUTOMATED) 2022-07-02 10:18:00 Gypsy [facility] POCT GLUCOSE (AUTOMATED) 2022-07-02 05:15:00 Gypsy [facility] POCT GLUCOSE (AUTOMATED) 2022-07-02 02:13:00 Gypsy [facility] POCT GLUCOSE (AUTOMATED) 2022-07-01 21:47:00 Gypsy [facility] POCT GLUCOSE (AUTOMATED) 2022-07-01 17:29:00 Gypsy [facility] POCT GLUCOSE (AUTOMATED) 2022-07-01 13:35:00 Gypsy [facility] POCT GLUCOSE (AUTOMATED) 2022-07-01 09:34:00 Gypsy [facility] PHOSPHORUS 2022-07-01 09:32:[address] [facility] MAGNESIUM 2022-07-01 09:32:00 Patel Betancur [facility] TROPONIN I 2022-07-01 09:32:00 Patel Betancur [facility] HEPATIC FUNCTION PANEL (32269) (ALB,T.PRO,BILI T,BU/BC,ALT,AST,ALK PHOS) 2022-07-01 09:32:00 Gypsy [facility] BASIC METABOLIC PANEL (NA, K, CL, CO2, GLUCOSE, BUN, CREATININE, CA) 2022-07-01 09:32:00 Gypsy [facility] CBC WITH DIFF 2022-07-01 09:32:00 Patel Betancur [facility] N-TERMINAL PRO-BNP 2022-07-01 09:32:00 Patel Betancur [facility] POCT GLUCOSE (AUTOMATED) 2022-07-01 05:26:00 Patel Betancur [facility] POCT GLUCOSE (AUTOMATED) 2022-07-01 01:58:00 Patel Betancur [facility] POCT GLUCOSE (AUTOMATED) 2022-06-30 22:26:00 Patel Betancur [facility] BLOOD CULTURE SCREEN 2022-06-30 18:43:00 Lisa Betancur [facility] BLOOD CULTURE SCREEN 2022-06-30 18:17:00 Lisa Betancur [facility] MRSA / MSSA SCREEN BY PCRRHEA 2022-06-30 18:17:00 Patel Betancur [facility] POCT GLUCOSE (AUTOMATED) 2022-06-30 17:52:00 Patel Betancur [facility] POCT GLUCOSE (AUTOMATED) 2022-06-30 14:33:00 Patel Betancur [facility] XR CHEST 1 VW 2022-06-30 13:42:32 Nayely Jarvis [facility] HB ECG ROUTINE & RHYTHM STRIP 2022-06-30 13:28:23 Matheus jenn [facility] POCT GLUCOSE (AUTOMATED) 2022-06-30 10:14:00 Patel Betancur [facility] PHOSPHORUS 2022-06-30 10:09:00 Patel Betancur [facility] MAGNESIUM 2022-06-30 10:09:00 Patel Betancur [facility] BASIC METABOLIC PANEL (NA, K, CL, CO2, GLUCOSE, BUN, CREATININE, CA) 2022-06-30 10:09:00 Patel Betancur [facility] CBC WITH DIFF 2022-06-30 10:09:00 Patel Betancur [facility] N-TERMINAL PRO-BNP 2022-06-30 10:09:00 Patel Betancur [facility] POCT GLUCOSE (AUTOMATED) 2022-06-30 02:20:00 Patel Betancur [facility] POCT GLUCOSE (AUTOMATED) 2022-06-29 22:15:00 Patel Betancur [facility] POCT GLUCOSE (AUTOMATED) 2022-06-29 17:14:00 Patel Betancur [facility] TRANSTHORACIC ECHO (TTE) COMPLETE 2022-06-29 15:12:00 Sushil Persaud [facility] POCT GLUCOSE (AUTOMATED) 2022-06-29 13:30:00 Patel Betancur [facility] PHOSPHORUS 2022-06-29 10:52:[address] [facility] MAGNESIUM 2022-06-29 10:52:00 Patel Betancur [facility] TROPONIN I 2022-06-29 10:52:00 Nayely Jarvis [facility] HEPATIC FUNCTION PANEL (35236) (ALB,T.PRO,BILI T,BU/BC,ALT,AST,ALK PHOS) 2022-06-29 10:52:00 [facility]EL (NA, K, CL, CO2, GLUCOSE, BUN, CREATININE, CA) 2022-06-29 10:52:00 Patel Betancur [facility] N-TERMINAL PRO-BNP 2022-06-29 10:52:00 Nayely Javris [facility] PROCALCITONIN 2022-06-29 10:52:[address] [facility] AC VBG + LACTIC ACID 2022-06-29 10:52:00 Acacia Jarvis [facility] POCT GLUCOSE (AUTOMATED) 2022-06-29 07:05:00 Patel Betancur [facility] XR CHEST 1 VW 2022-06-29 06:51:[address] [facility] POCT GLUCOSE (AUTOMATED) 2022-06-29 02:24:00 Patel Betancur [facility] POCT GLUCOSE (AUTOMATED) 2022-06-28 22:30:00 Patel Betancur [facility] POCT GLUCOSE (AUTOMATED) 2022-06-28 17:12:00 Patel Betancur [facility] POCT GLUCOSE (AUTOMATED) 2022-06-28 13:34:00 Patel Betancur [facility] PHOSPHORUS 2022-06-28 10:19:[address] [facility] MAGNESIUM 2022-06-28 10:19:00 Patel Betancur [facility] TROPONIN I 2022-06-28 10:19:00 Nayely Jarvis [facility] BASIC METABOLIC PANEL (NA, K, CL, CO2, GLUCOSE, BUN, CREATININE, CA) 2022-06-28 10:19:00 [facility] 2022-06-28 10:19:00 [facility] (AUTOMATED) 2022-06-28 10:18:00 Gypsy [facility] POCT GLUCOSE (AUTOMATED) 2022-06-28 05:53:00 Gypsy [facility] POCT GLUCOSE (AUTOMATED) 2022-06-28 02:12:00 Gypsy [facility] POCT GLUCOSE (AUTOMATED) 2022-06-27 22:09:00 Gypsy [facility] POCT GLUCOSE (AUTOMATED) 2022-06-27 17:07:00 [facility] ([facility]OMATED) 2022-06-27 14:02:00 Patel Betancur [facility] PHOSPHORUS 2022-06-27 10:55:[address] [facility] MAGNESIUM 2022-06-27 10:55:[address] [facility] TROPONIN I 2022-06-27 10:55:00 Patel Betancur [facility] BASIC METABOLIC PANEL (NA, K, CL, CO2, GLUCOSE, BUN, CREATININE, CA) 2022-06-27 10:55:00 Patel Betancur [facility] CBC WITH DIFF 2022-06-27 10:55:00 Patel Betancur [facility] N-TERMINAL PRO-BNP 2022-06-27 10:55:00 Patel Betancur [facility] POCT GLUCOSE (AUTOMATED) 2022-06-27 10:54:00 Gypsy [facility] POCT GLUCOSE (AUTOMATED) 2022-06-27 05:44:00 Patel Betancur [facility] POCT GLUCOSE (AUTOMATED) 2022-06-27 02:24:00 Patel Betancur [facility] CT ABDOMEN PELVIS WO CONTRAST 2022-06-26 19:55:00 Ramírez Culp [facility] BLOOD CULTURE SCREEN 2022-06-26 19:09:00 Rhiannon Culp [facility] XR CHEST 1 VW 2022-06-26 19:05:13 Ramírez Culp [facility] LIPASE 2022-06-26 18:07:00 [facility]rez Culp [facility] MAGNESIUM 2022-06-26 18:07:00 Ramírez Culp [facility] TROPONIN I 2022-06-26 18:07:00 Ramírez Culp [facility] COMP. METABOLIC PANEL ([id number]) 2022-06-26 18:07:00 Ramírez Culp [facility] CBC WITH DIFF 2022-06-26 18:07:00 Ramírez Culp [facility] PROTHROMBIN TIME / INR 2022-06-26 18:07:00 Dave Culp [facility] ACTIVATED PARTIAL THRMPLAS AMANUEL 2022-06-26 18:07:00 Ramírez Culp [facility] URINALYSIS 2022-06-26 18:07:00 Ramírez Culp [facility] URINE CULTURE 2022-06-26 18:07:00 Ramírez Culp [facility] RAPID INFLUENZA A/B 2022-06-26 18:07:00 Arvind Cupl [facility] N-TERMINAL PRO-BNP 2022-06-26 18:07:00 Ramírez Culp [facility] LACTIC ACID WHOLE BLOOD 2022-06-26 18:07:00 Do betty Culp [facility] COVID-19 (ID NOW RAPID TESTING) 2022-06-26 18:07:00 Ramírez Culp [facility] LAB ONLY COVID INTERPRETATION 2022-06-26 18:07:00 Ramírez Culp [facility] BLOOD CULTURE SCREEN 2022-06-26 18:04:00 Rhiannon Culp [facility] HB ECG ROUTINE & RHYTHM STRIP 2022-06-26 17:55:44 Ramírez Culp [facility] CONSENT/REFUSAL FOR DIAGNOSIS AND TREATMENT 2022-06-26 17:34:38 Doctor Unassigned, Medicine [place] [facility] - OTHER 2022-05-20 06:01:00 Doctor Brock farias, [facility] FLU VACC(),65+YR,0.5 ML,IM,ADJUVANTED,QUAD(FLUA D) 2022-05-10 20:09:55 Brian Israel [facility] PATIENT QUESTIONNAIRE 2022-05-10 06:01:00 Doctor Unassigned, [facility] [place] [facility] - OTHER 2022-05-03 05:01:00 Doctor Brock farias, [facility] [place] [facility] AUTHORIZATION TO RELEASE PHI TO [facility] 2022-04-07 05:01:00 Doctor Unassigned, [facility] [place] [facility] DME/SUPPLY JUSTIFICATION 2022-03-24 05:01:00 Doc tor Unassigned, [facility] [place] [facility] PATIENT QUESTIONNAIRE 2022-03-16 05:01:00 Doctor Unassigned, [facility] [place] [facility] Arthrd Ant Ntrbd Min Dsc Crv [facility] Cardiac Catheterization [facility] Cat[facility]act Surgery [facility] Total Hysterectomy [facility] Plan of Care Planned Activity Planned Date Details Comments Source Diagnostic Test Pending 2021-04-13 00:00:00 HbA1c (hemoglobin A1c), blood [code = HbA1c (hemoglobin A1c), blood] [facility] Diagnostic Test Pending 2021-04-13 00:00:00 CMP, serum or plasma [code = CMP, serum or plasma] [facility] Encounters Start Date/Time End Date/Time Encounter Type Admission Type Attending Clinicians Care Facility Care Department Encounter ID Source 2022-07-23 09:09:12 Outpatient [facility] [id number] [facility] 2022-04-05 16:46:26 Outpatient [facility] [id number] [facility] 2022-03-05 08:56:39 Outpatient [facility] [id number] [facility] 2022-02-16 04:20:33 Outpatient [facility] [id number] [facility] 2022-02-04 07:58:20 Outpatient [facility] [id number] [facility] 2022-01-07 11:08:09 Outpatient [facility] [id number] [facility] 2021-08-27 23:47:45 Outpatient NEW ADMISSION ENCCLR ENCCLR [id number] ENCCLR 2021-07-30 13:23:53 Outpatient 3 [id number] E[facility] RHIANNA [id number] [facility] 2021-07-30 13:23:41 Outpatient 3 [id number] ENCPL REF [id number] 1 [id number] [facility] 2021-06-12 10:36:50 Outpatient READMISSIO N GARDEN CONSULTANT PENDING, GARDEN CONSULTANT PENDING ENCCLR ENCCLR [id number] ENCCLR 2021-05-01 17:37:15 Emergency [facility] [id number] [facility] 2021-05-01 17:11:08 Emergency [facility] [id number] [facility] 2021-05-01 12:10:06 Emergency [facility] [id number] [facility] 2024-02-28 00:00:00 2024-02-28 00:00:00 Outpatient JAMSHID ROBERTSON [facility] [id number] [facility] 2024-02-27 00:00:00 2024-02-27 00:00:00 Outpatient JAMSHID ROBERTSON [facility] [id number] [facility] 2024-02-22 00:00:00 2024-02-24 17:59:29 Refill Lindy Brian [facility] MED[facility] OFFICE BUILDING 1.2.840.114 350.1.13.10 4.2.7.2.686 [id number] 044 [id number] [facility] 2024-02-10 00:00:00 2024-02-16 10:20:25 Telephone Jerome Soares [facility] 1.2.840.114 350.1.13.10 4.2.7.2.686 [id number] [facility] 2024-02-09 00:00:00 2024-02-10 13:05:50 Refill Shahzad Wyatt [facility] JOHN?[facility] MEDICAL OFFICE BUILDING 1.2.840.114 350.1.13.10 4.2.7.2.686 [id number] 044 [id number] [facility] 2024-02-09 00:00:00 2024-02-09 13:13:59 Telephone Jamshid Early [facility] NAL BUILDING 1.2.840.114 350.1.13.10 4.2.7.2.686 [id number] 059 [id number] [facility] 2024-02-01 00:00:00 2024-02-03 04:51:46 Telephone Seraallison [facility] JOHN?[facility] MEDICAL OFFICE BUILDING 1.2.840.114 350.1.13.10 4.2.7.2.686 [id number] 044 [id number] [facility] 2024-01-31 13:00:00 2024-01-31 16:22:54 Outpatient R JAMSHID EARLY [facility] [id number] [facility] 2024-01-31 13:00:00 2024-01-31 16:22:54 Office Visit Jamshid Early [facility] 1.2.840.114 350.1.13.10 4.2.7.2.686 [id number] 059 [id number] [facility] 2024-01-31 10:40:00 2024-01-31 11:44:53 Office Visit Lindy [facility] OFFICE BUILDING 1.2.840.114 350.1.13.10 4.2.7.2.686 [id number] 044 [id number] [facility] 2024-01-29 00:00:00 2024-01-31 09:33:11 Refill Lindy [facility] OFFICE BUILDING 1.2.840.114 350.1.13.10 4.2.7.2.686 [id number] 044 [id number] [facility] 2024-01-30 10:30:00 2024-01-30 10:30:00 Outpatient JAMSHID ROBERTSON [facility] [id number] [facility] 2024-01-17 00:00:00 2024-01-17 15:48:10 Telephone Abigail Ley 1.2.840.114 350.1.13.10 4.2.7.2.686 [id number] [facility] 2024-01-16 16:01:00 2024-01-16 20:29:00 Emergency X SHAHZAD PRO [facility] ERT [id number] [facility] 2024-01-16 16:01:00 2024-01-16 20:29:00 Emergency Shahzad Pro [facility] 1.2.840.114 350.1.13.10 4.2.7.2.686 [id number] 084 [id number] [facility] 2023-12-27 10:20:00 2023-12-27 11:44:04 Outpatient BRIAN PRUETT [facility] [id number] [facility] 2023-12-27 10:20:00 2023-12-27 11:44:04 Office Visit Lindy [facility] JOHN?[facility] 1.2840.114 350.1.13.10 4.2.7.2.686 [id number] 044 [id number] [facility] 2023-12-26 10:00:00 2023-12-26 10:00:00 Outpatient R [facility] [id number] [facility] 2023-12-22 00:00:00 2023-12-22 14:11:57 Telephone Lindy [facility] JOHN?MALIKA [facility] MEDICAL OFFICE BUILDING 1.2840.114 350.1.13.10 4.2.7.2.686 [id number] 044 [id number] [facility] 2023-12-21 00:00:00 2023-12-22 11:37:26 [facility] MEDICAL OFFICE BUILDING 1.84.114 350.1.13.10 4.2.7.2.686 [id number] 044 [id number] [facility] 2023-12-16 10:30:00 2023-12-16 10:30:00 Outpatient R JAMSHID EARLY [facility] [id number] [facility] 2023-12-07 00:00:00 2023-12-09 12:41:51 [facility] MEDICAL OFFICE BUILDING 1.84.114 350.1.13.10 4.2.7.2.686 [id number] 044 [id number] [facility] 2023-12-09 00:00:00 2023-12-09 10:35:59 [facility] 1.840.114 350.1.13.10 4.2.7.2.686 [id number] 059 [id number] [facility] 2023-12-05 00:00:00 2023-12-06 15:17:25 Telephone Lindy [facility] JOHN?[facility] OFFICE BUILDING 1.2.840.114 350.1.13.10 4.2.7.2.686 [id number] 044 [id number] [facility] 2023-11-22 11:00:00 2023-11-22 11:00:00 Outpatient R STEPHEN CHRISTIANCASIMIRO [facility] [id number] [facility] 2023-11-21 00:00:00 2023-11-21 15:31:31 Telephone [facility]y [facility] MEDICAL OFFICE BUILDING 1.2.840.114 350.1.13.10 4.2.7.2.686 [id number] 044 [id number] [facility] 2023-09-05 00:00:00 2023-11-21 06:45:38 Refill [facility]y [facility] MEDICAL OFFICE BUILDING 1..840.114 350.1.13.10 4.2.7.2.686 [id number] 044 [id number] [facility] 2023-10-17 00:00:00 2023-11-19 18:08:34 Patient Secure Msg Doctor Unassigned, Medicine [place] [facility] NAL BUILDING 1.2.840.114 350.1.13.10 4.2.7.2.686 [id number] [facility] 2023-11-14 12:00:00 2023-11-14 12:15:00 Vac 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 Operator Visit Lab, Cameron Early [facility] OFF[facility] BU[facility] 1.2.840.114 350.1.13.10 4.2.7.2.686 [id number] [facility] 2023-11-14 12:00:00 2023-11-14 12:00:00 Outpatient R SHIRA ISRAELINE LINDY [facility] [id number] [facility] 2023-11-11 12:15:00 2023-11-11 12:15:00 Vac Press Operator Visit Lab, Cameron Eraly [facility] JOHN?[facility] MEDICAL OFFICE BUILDING 1.2840.114 350.1.13.10 4.2.7.2.686 [id number] [facility] 2023-11-11 12:15:00 2023-11-11 12:09:45 Outpatient R BRIAN ISRAEL [facility] [id number] [facility] 2023-11-11 10:40:00 2023-11-11 12:05:37 Office Visit Lindy [facility] MEDICAL OFFICE BUILDING 1.2840.114 350.1.13.10 4.2.7.2.686 [id number] 044 [id number] [facility] 2023-11-07 00:00:00 2023-11-08 10:12:20 Telephone [facility] OFF[facility] BU[facility] 1.2840.114 350.1.13.10 4.2.7.2.686 [id number] 044 [id number] [facility] 2023-11-03 00:00:00 2023-11-03 00:00:00 Telephone Bridgette Black 1.2840.114 350.1.13.10 4.2.7.2.686 [id number] [facility] 2023-11-01 00:00:00 2023-11-01 00:00:00 Refill Lindy [facility] JOHN?[facility] MEDICAL OFFICE BUILDING 1.2840.114 350.1.13.10 4.2.7.2.686 [id number] 044 [id number] [facility] 2023-10-30 14:38:00 2023-10-30 17:42:00 Emergency X DANIELLA HAWK [facility] ERT [id number] [facility] 2023-10-30 14:38:00 2023-10-30 17:42:00 Emergency Daniella Hawk [facility] 1.2.840.114 350.1.13.10 4.2.7.2.686 [id number] [facility] 2023-10-28 00:00:00 2023-10-28 00:00:00 Telephone Ivy Wale [facility] JOHN?MALIKA [facility] MEDICAL OFFICE BUILDING 1.2.840.114 350.1.13.10 4.2.7.2.686 [id number] [facility] 2023-10-26 00:00:00 2023-10-26 00:00:00 Refill Ivy Wale [facility] JOHN?MALIKA [facility] MEDICAL OFFICE BUILDING 1.2.840.114 350.1.13.10 4.2.7.2.686 [id number] [facility] 2023-10-26 00:00:00 2023-10-26 00:00:00 Refill Lindy [facility] JOHN?[facility] MEDICAL OFFICE BUILDING 1.2.840.114 350.1.13.10 4.2.7.2.686 [id number] 044 [id number] [facility] 2023-10-14 00:00:00 2023-10-14 00:00:00 Telephone Lindy [facility] JOHN?[facility] MEDICAL OFFICE BUILDING 1.2.840.114 350.1.13.10 4.2.7.2.686 [id number] 044 [id number] [facility] 2023-10-11 00:00:00 2023-10-11 00:00:00 Telephone SterlingNehal hansen [facility] OFF[facility] BUILDING 1.2.840.114 350.1.13.10 4.2.7.2.686 [id number] 044 [id number] [facility] 2023-10-04 13:49:09 2023-10-04 23:59:00 Outpatient R STEPH NUR [facility] [id number] [facility] 2023-10-04 13:49:09 2023-10-04 23:59:00 Hospital Encounter Steph Nur [facility] 1..840.114 350.1.13.10 4.2.7.2.686 [id number] [facility] 2023-09-28 00:00:00 2023-09-28 00:00:00 [facility]ill [facility] 1..840.114 350.1.13.10 4.2.7.2.686 [id number] 044 [id number] [facility] 2023-09-22 00:00:00 2023-09-22 00:00:00 Refill Lindy [facility] BUILDING 1.2.840.114 350.1.13.10 4.2.7.2.686 [id number] 044 [id number] [facility] 2023-09-21 10:00:00 2023-09-21 11:07:24 Outpatient R JAMSHID EARLY [facility] [id number] [facility] 2023-09-21 10:00:00 2023-09-21 11:07:24 Office Visit Jamshid Early [facility] BUILDING 1.2.840.114 350.1.13.10 4.2.7.2.686 [id number] [id number] [facility] 2023-09-21 10:30:00 2023-09-21 10:45:00 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, 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 Jamshid Early [facility] BUILDING 1.84.114 350.1.13.10 4.2.7.2.686 [id number] [facility] 2023-09-07 00:00:00 2023-09-07 00:00:00 Telephone [facility] OFFICE BUILDING 1..114 350.1.13.10 4.2.7.2.686 [id number] 044 [id number] [facility] 2023-09-06 00:00:00 2023-09-06 00:00:00 Orders Only Doctor Unassigned, [place] [facility] 1.0.114 350.1.13.10 4.2.7.2.686 [id number] [facility] 2023-09-02 00:00:00 2023-09-02 00:00:00 Telephone [facility]?MALIKA [facility] BUILDING 1.84.114 350.1.13.10 4.2.7.2.686 [id number] 044 [id number] [facility] 2023-08-24 11:00:00 2023-08-24 11:00:00 Outpatient DAVID TOMPKINS HAIDER [facility] [id number] [facility] 2023-08-24 00:00:00 2023-08-24 00:00:00 Nurse Triage Simba Bailey [facility] 1.2.114 350.1.13.10 4.2.7.2.686 [id number] [id number] [facility] 2023-08-23 00:00:00 2023-08-23 00:00:00 Telephone Jamshid Early [facility] BUILDING 1.2840.114 350.1.13.10 4.2.7.2.686 [id number] 059 [id number] [facility] 2023-08-22 00:00:00 2023-08-22 00:00:00 Refquincy [facility] OFF[facility] BUILDING 1.2840.114 350.1.13.10 4.2.7.2.686 [id number] 044 [id number] [facility] 2023-08-12 11:00:00 2023-08-12 11:24:47 Out[facility] [id number] [facility] 2023-08-12 11:00:00 2023-08-12 11:24:47 Office Visit Michoacano Wilkes [facility] NAL BUILDING 1.2840.114 350.1.13.10 4.2.7.2.686 [id number] 085 [id number] [facility] 2023-08-09 00:00:00 2023-08-09 00:00:00 Refquincy [facility] MEDICAL OFFICE BUILDING 1.2840.114 350.1.13.10 4.2.7.2.686 [id number] 044 [id number] [facility] 2023-08-08 00:00:00 2023-08-08 00:00:00 Orders Only Doctor Unassigned, [place] [facility] 1.2840.114 350.1.13.10 4.2.7.2.686 [id number] [facility] 2023-07-25 00:00:00 2023-07-25 00:00:00 Orders Only Doctor Unassigned, Medicine [place] [facility] 1.2840.114 350.1.13.10 4.2.7.2.686 [id number] [facility] 2023-07-20 00:00:00 2023-07-20 00:00:00 Refill Lindy [facility] JOHN?[facility] OFF[facility] BUILD[facility] 1.2.840.114 350.1.13.10 4.2.7.2.686 [id number] 044 [id number] [facility] 2023-07-17 00:00:00 2023-07-17 00:00:00 Refill Lindy [facility] JOHN?[facility] 1.2.840.114 350.1.13.10 4.2.7.2.686 [id number] 044 [id number] [facility] 2023-07-14 00:00:00 2023-07-14 00:00:00 Telephone Jamshid Early [facility] BUILDING 1.2.840.114 350.1.13.10 4.2.7.2.686 [id number] 059 [id number] [facility] 2023-07-13 08:30:00 2023-07-13 23:59:00 Hospital Encounter Jamshid Early [facility] BUILDING 1.2.840.114 350.1.13.10 4.2.7.2.686 [id number] [facility] 2023-07-13 09:20:00 2023-07-13 11:09:34 Outpatient R DAVID LIMA HAIDER [facility] [id number] [facility] 2023-07-13 09:20:00 2023-07-13 11:09:34 Office Visit David Lima [facility] BUILDING 1.2.840.114 350.1.13.10 4.2.7.2.686 [id number] 059 [id number] [facility] 2023-07-13 00:00:00 2023-07-13 00:00:00 Telephone Jamshid Early [facility] NAL BUILDING 1..840.114 350.1.13.10 4.2.7.2.686 [id number] 059 [id number] [facility] 2023-07-13 00:00:00 2023-07-13 00:00:00 Telephone Wale Haynes [facility] OFF[facility] BUILD[facility] 1..840.114 350.1.13.10 4.2.7.2.686 [id number] [facility] 2023-07-11 00:00:00 2023-07-11 00:00:00 Refill Lindy [facility] JOHN?[facility] MEDICAL OFFICE BUILDING 1..840.114 350.1.13.10 4.2.7.2.686 [id number] 044 [id number] [facility] 2023-07-09 00:00:00 2023-07-09 00:00:00 Refill HarrietErick [facility] MED[facility] OFF[facility] BUILDING 1..840.114 350.1.13.10 4.2.7.2.686 [id number] [facility] 2023-07-08 14:00:00 2023-07-08 15:10:42 Outpatient R BRIAN [facility]IR[facility] [id number] [facility] 2023-07-08 14:00:00 2023-07-08 15:10:42 [facility] OFF[facility] BU[facility] 1.2.840.114 350.1.13.10 4.2.7.2.686 [id number] 044 [id number] [facility] 2023-06-29 10:00:00 2023-06-29 10:00:00 Outpatient R DAVID LIMA HAIDER [facility] [id number] [facility] 2023-06-29 00:00:00 2023-06-29 00:00:00 Orders Only Doctor Unassigned, [place] [facility] 1.2840.114 350.1.13.10 4.2.7.2.686 [id number] [facility] 2023-06-24 00:00:00 2023-06-24 00:00:00 Telephone Jamshid Early [facility] BUILDING 1.284.114 350.1.13.10 4.2.7.2.686 [id number] 059 [id number] [facility] 2023-06-22 11:00:00 2023-06-22 11:51:38 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, 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114 350.1.13.10 4.2.7.2.686 [id number] 044 [id number] [facility] 2023-06-21 00:00:00 2023-06-21 00:00:00 Telephone Lindy [facility] JOHN?MALIKA [facility] MEDICAL OFFICE BUILDING 1..840.114 350.1.13.10 4.2.7.2.686 [id number] 044 [id number] [facility] 2023-06-21 00:00:00 2023-06-21 00:00:00 Telephone Lindy Brian [facility]ALIKA [facility] MEDICAL OFFICE BUILDING 1.84.114 350.1.13.10 4.2.7.2.686 [id number] 044 [id number] [facility] 2023-06-21 00:00:00 2023-06-21 00:00:00 Orders Only Doctor Unassigned, [place] [facility] 1.2840.114 350.1.13.10 4.2.7.2.686 [id number] [facility] 2023-06-17 00:00:00 2023-06-17 00:00:00 Telephone [facility] 1.840.114 350.1.13.10 4.2.7.2.686 [id number] [facility] 2023-06-15 11:30:00 2023-06-15 11:30:00 Outpatient R NEHAL TITUS [facility] [id number] [facility] 2023-06-13 10:20:00 2023-06-13 10:20:00 Outpatient BRIAN PRUETT [facility] [id number] [facility] 2023-06-13 00:00:00 2023-06-13 00:00:00 Telephone José Miguel Bedolla [facility]ESS[facility] N[facility] 1..840.114 350.1.13.10 4.2.7.2.686 [id number] [facility] 2023-06-09 09:30:00 2023-06-09 10:00:00 Office Visit [place] [facility] 1..840.114 350.1.13.10 4.2.7.2.686 [id number] [facility] 2023-06-09 09:30:00 2023-06-09 09:30:00 Outpatient R MICHOACANO WILKES PEEGAKika [facility] [id number] [facility] 2023-06-07 00:00:00 2023-06-07 00:00:00 Patient Secure Msg Doctor Unassigned, [place] [facility]AL[facility]A [facility] MEDICAL OFFICE BUILD[facility] 1..840.114 350.1.13.10 4.2.7.2.686 [id number] [facility] 2023-06-07 00:00:00 2023-06-07 00:00:00 Telephone Brian Israel [facility] JOHN?MALIKA [facility] OFF[facility] BUILD[facility] 1..840.114 350.1.13.10 4.2.7.2.686 [id number] [facility] 2023-06-06 12:06:20 2023-06-06 23:59:00 Outpatient R NEHAL TITUS [facility] [id number] [facility] 2023-06-06 12:06:20 2023-06-06 23:59:00 Hospital Encounter SterlingNehal hansen [facility] JOHN?MALIKA [facility] MEDICAL OFFICE BUILDING 1..840.114 350.1.13.10 4.2.7.2.686 [id number] [facility] 2023-06-06 11:30:00 2023-06-06 12:00:00 Office Visit Nehal Titus [facility] JOHN?MALIKA [facility] MEDICAL OFFICE BUILDING 1..840.114 350.1.13.10 4.2.7.2.686 [id number] 044 [id number] [facility] 2023-06-06 00:00:00 2023-06-06 00:00:00 Telephone Jina Rock [facility] 1.2840.114 350.1.13.10 4.2.7.2.686 [id number] [facility] 2023-06-03 00:00:00 2023-06-03 00:00:00 Telephone [facility] 1.2840.114 350.1.13.10 4.2.7.2.686 [id number] 044 [id number] [facility] 2023-06-03 00:00:00 2023-06-03 00:00:00 Telephone [facility] 1.2840.114 350.1.13.10 4.2.7.2.686 [id number] 044 [id number] [facility] 2023-06-02 00:00:00 2023-06-02 00:00:00 [facility] 1.2840.114 350.1.13.10 4.2.7.2.686 [id number] 044 [id number] [facility] 2023-06-01 00:00:00 2023-06-01 00:00:00 [facility] 1.2840.114 350.1.13.10 4.2.7.2.686 [id number] 044 [id number] [facility] 2023-05-31 00:00:00 2023-05-31 00:00:00 Telephone Jerome Soares [facility] 1.2840.114 350.1.13.10 4.2.7.2.686 [id number] [facility] 2023-05-31 00:00:00 2023-05-31 00:00:00 Telephone [facility] JOHN?MALIKA [facility] MED[facility] OFF[facility] BUILD[facility] 1.284.114 350.1.13.10 4.2.7.2.686 [id number] 044 [id number] [facility] 2023-05-30 00:00:00 2023-05-30 00:00:00 Telephone [facility] JOHN?MALIKA [facility] MED[facility] OFFICE BUILD[facility] 1..114 350.1.13.10 4.2.7.2.686 [id number] 044 [id number] [facility] 2023-05-24 00:00:00 2023-05-24 00:00:00 Telephone [facility] JOHN?MALIKA [facility] MED[facility] OFFICE BUILD[facility] 1.84.114 350.1.13.10 4.2.7.2.686 [id number] 044 [id number] [facility] 2023-05-23 10:00:00 2023-05-23 11:15:31 Outpatient R ERICK LARIOS YU [facility] [id number] [facility] 2023-05-23 10:00:00 2023-05-23 11:15:31 Office Visit [facility] MED[facility] OFF[facility] BUILD[facility] 1.84.114 350.1.13.10 4.2.7.2.686 [id number] [facility] 2023-05-23 10:30:00 2023-05-23 10:30:00 Outpatient R ERICK LARIOS YU [facility] [id number] [facility] 2023-05-20 00:00:00 2023-05-20 00:00:00 Orders Only Doctor Unassigned, [place] [facility] 1.2840.114 350.1.13.10 4.2.7.2.686 [id number] [id number] [facility] 2023-05-19 13:00:00 2023-05-19 13:00:00 Outpatient R JAMSHID EARLY [facility] [id number] [facility] 2023-05-18 00:00:00 2023-05-18 00:00:00 Telephone [facility] JOHN?MALIKA [facility] 1.84.114 350.1.13.10 4.2.7.2.686 [id number] 044 [id number] [facility] 2023-05-17 00:00:00 2023-05-17 00:00:00 Refill [facility] JOHN?[facility] MEDICAL OFFICE BUILDING 1.84.114 350.1.13.10 4.2.7.2.686 [id number] 044 [id number] [facility] 2023-05-16 15:45:00 2023-05-16 15:45:00 Outpatient R JOSÉ MIGUEL BEDOLLA MITCHELL [facility] [id number] [facility] 2023-05-16 00:00:00 2023-05-16 00:00:00 [facility] 1.84.114 350.1.13.10 4.2.7.2.686 [id number] 044 [id number] [facility] 2023-05-16 00:00:00 2023-05-16 00:00:00 Telephone [facility] JOHN?MALIKA [facility] OFF[facility] BUILD[facility] 1.84.114 350.1.13.10 4.2.7.2.686 [id number] 044 [id number] [facility] 2023-05-12 00:00:00 2023-05-12 00:00:00 Telephone Jerome Soares [facility] 1..114 350.1.13.10 4.2.7.2.686 [id number] [facility] 2023-05-09 10:40:00 2023-05-09 10:40:00 Outpatient R BRIAN ISRAEL CHRISTINE [facility] [id number] [facility] 2023-05-05 14:45:00 2023-05-05 16:12:55 Outpatient R JEROME SOARES [facility] [id number] [facility] 2023-05-05 14:45:00 2023-05-05 16:12:55 Office Visit Jerome Soares [facility] 1.840.114 350.1.13.10 4.2.7.2.686 [id number] [facility] 2023-05-05 10:20:00 2023-05-05 11:20:20 Office [facility] 1..840.114 350.1.13.10 4.2.7.2.686 [id number] 044 [id number] [facility] 2023-05-05 00:00:00 2023-05-05 00:00:00 Orders Only Doctor Unassigned, [place] [facility] 1.2840.114 350.1.13.10 4.2.7.2.686 [id number] [id number] [facility] 2023-04-27 11:00:00 2023-04-27 11:57:05 Outpatient R DAVID LIMA HAIDER [facility] [id number] [facility] 2023-04-27 11:00:00 2023-04-27 11:57:05 Office Visit David L[facility] 1.2.840.114 350.1.13.10 4.2.7.2.686 [id number] 059 [id number] [facility] 2023-04-21 16:20:00 2023-04-21 16:20:00 Outpatient R SHIRA ISRAELINE [facility] [id number] [facility] 2023-04-20 00:00:00 2023-04-20 00:00:00 Transition of Care Prince Alda G[facility] 1.2840.114 350.1.13.10 4.2.7.2.686 [id number] [facility] 2023-04-12 15:17:00 2023-04-19 18:13:00 Inpatient X GERMÁN ALVARENGA [facility] [id number] [facility] 2023-04-12 15:17:00 2023-04-19 18:13:00 Hospital Encounter Totoie Chau David [facility] 1.2840.114 350.1.13.10 4.2.7.2.686 [id number] 081 [id number] [facility] 2023-04-15 00:00:00 2023-04-15 00:00:00 Refill [facility] MEDICAL OFFICE BUILDING 1.284.114 350.1.13.10 4.2.7.2.686 [id number] 044 [id number] [facility] 2023-04-12 00:00:00 2023-04-12 00:00:00 [facility] MED[facility] OFF[facility] BUILD[facility] 1.2840.114 350.1.13.10 4.2.7.2.686 [id number] 044 [id number] [facility] 2023-04-06 00:00:00 2023-04-06 00:00:00 Telephone [facility] JOHN?[facility] OFF[facility] BUILD[facility] 1.2840.114 350.1.13.10 4.2.7.2.686 [id number] 044 [id number] [facility] 2023-04-04 00:00:00 2023-04-04 00:00:00 Orders Only Doctor Unassigned, [place] [facility] 1.2.840.114 350.1.13.10 4.2.7.2.686 [id number] [id number] [facility] 2023-03-29 00:00:00 2023-03-29 00:00:00 Transition of Care Rodo Gomez [facility] 1.2.840.114 350.1.13.10 4.2.7.2.686 [id number] [facility] 2023-03-29 00:00:00 2023-03-29 00:00:00 Telephone Michoacano Wilkes [facility] NAL BUILDING 1.2.840.114 350.1.13.10 4.2.7.2.686 [id number] 085 [id number] [facility] 2023-03-29 00:00:00 2023-03-29 00:00:00 Telephone Brian Israel [facility]?MALIKA [facility] MED[facility] OFF[facility] BUILDING 1.2840.114 350.1.13.10 4.2.7.2.686 [id number] 044 [id number] [facility] 2023-03-21 08:51:00 2023-03-28 13:25:00 Inpatient R FANY [facility] [id number] [facility] 2023-03-21 08:51:00 2023-03-28 13:25:00 Hospital Encounter Jerome Soares [facility] 1.2.840.114 350.1.13.10 4.2.7.2.686 [id number] [facility] 2023-03-25 12:28:00 2023-03-25 14:55:00 Anesthesia Event Mary Poon Brita M [facility] 1.2.840.114 350.1.13.10 4.2.7.2.686 [id number] [facility] 2023-03-25 11:09:00 2023-03-25 13:23:00 Surgery [facility] 1.2.840.114 350.1.13.10 4.2.7.2.686 [id number] [facility] 2023-03-21 10:30:00 2023-03-21 12:59:00 Surgery [facility] 1.2.840.114 350.1.13.10 4.2.7.2.686 [id number] [facility] 2023-03-21 10:40:00 2023-03-21 10:40:00 Outpatient BRIAN PRUETT CHRISTINE [facility] [id number] [facility] 2023-03-15 00:00:00 2023-03-15 00:00:00 Orders Only Doctor Unassigned, [place] [facility] 1.2.840.114 350.1.13.10 4.2.7.2.686 [id number] [id number] [facility] 2023-03-14 00:00:00 2023-03-14 00:00:00 Patient Secure Msg Doctor Unassigned, [place] [facility] 1.2.840.114 350.1.13.10 4.2.7.2.686 [id number] [facility] 2023-03-10 16:30:00 2023-03-10 17:07:51 Outpatient R JEROME SOARES [facility] [id number] [facility] 2023-03-10 16:30:00 2023-03-10 17:07:51 Office Visit Jerome Soares [facility] 1.2.840.114 350.1.13.10 4.2.7.2.686 [id number] [facility] 2023-03-10 00:00:00 2023-03-10 00:00:00 Telephone [facility] JOHN?MALIKA [facility] MED[facility] OFF[facility] BUILDING 1.2840.114 350.1.13.10 4.2.7.2.686 [id number] 044 [id number] [facility] 2023-03-08 16:20:00 2023-03-08 17:12:57 Outpatient R LINDY BRIAN L[facility] [id number] [facility] 2023-03-08 16:20:00 2023-03-08 17:12:57 Office Visit Lindy [facility] JOHN?MALIKA [facility] MEDICAL OFFICE BUILDING 1.2840.114 350.1.13.10 4.2.7.2.686 [id number] 044 [id number] [facility] 2023-03-08 00:00:00 2023-03-08 00:00:00 Orders Only Doctor Unassigned, [place] [facility] 1.2840.114 350.1.13.10 4.2.7.2.686 [id number] [id number] [facility] 2023-02-28 00:00:00 2023-02-28 00:00:00 [facility] BUILD[facility] 1.2840.114 350.1.13.10 4.2.7.2.686 [id number] 044 [id number] [facility] 2023-02-22 00:00:00 2023-02-22 00:00:00 Outpatient R ROEL HOANG [facility] [id number] [facility] 2023-02-22 00:00:00 2023-02-22 00:00:00 Transition of Care Alda Morrison 1.2840.114 350.1.13.10 4.2.7.2.686 [id number] [facility] 2023-02-22 00:00:00 2023-02-22 00:00:00 Patient Secure Msg Doctor Unassigned, [place] [facility] 1.20.114 350.1.13.10 4.2.7.2.686 [id number] 019 [id number] [facility] 2023-02-20 20:53:00 2023-02-21 19:00:00 Outpatient X SAM MEREDITH [facility] [id number] [facility] 2023-02-20 20:53:00 2023-02-21 19:00:00 Emergency Ramírez Culp Mohammad A. [facility] 1.0.114 350.1.13.10 4.2.7.2.686 [id number] 081 [id number] [facility] 2023-02-15 00:00:00 2023-02-15 00:00:00 [facility] 1.2840.114 350.1.13.10 4.2.7.2.686 [id number] 044 [id number] [facility] 2023-02-11 00:00:00 2023-02-11 00:00:00 Telephone [facility] MEDICAL OFFICE BUILDING 1.2840.114 350.1.13.10 4.2.7.2.686 [id number] 044 [id number] [facility] 2023-02-10 00:00:00 2023-02-10 00:00:00 Telephone Dilcia [facility] [place] [facility] 1.2840.114 350.1.13.10 4.2.7.2.686 [id number] 205 [id number] [facility] 2023-02-09 00:00:00 2023-02-09 00:00:00 Telephone Dilcia [facility] 1.2840.114 350.1.13.10 4.2.7.2.686 [id number] 205 [id number] [facility] 2023-02-08 11:00:00 2023-02-08 13:22:21 Outpatient R ROEL HOANG [facility] [id number] [facility] 2023-02-08 11:00:00 2023-02-08 13:22:21 Office Visit Roel Hoang [facility] 1.2840.114 350.1.13.10 4.2.7.2.686 [id number] 205 [id number] [facility] 2023-02-08 00:00:00 2023-02-08 00:00:00 Orders Only Doctor Unassigned, [place] [facility] 1.2840.114 350.1.13.10 4.2.7.2.686 [id number] 009 [id number] [facility] 2023-02-02 00:00:00 2023-02-02 00:00:00 Refill [facility] OFFICE BUILDING 1.840.114 350.1.13.10 4.2.7.2.686 [id number] 044 [id number] [facility] 2023-01-28 00:00:00 2023-01-28 00:00:00 [facility] MED[facility] OFFICE BUILDING 1.2840.114 350.1.13.10 4.2.7.2.686 [id number] 044 [id number] [facility] 2023-01-28 00:00:00 2023-01-28 00:00:00 Orders Only Doctor Unassigned, [place] [facility] 1.2840.114 350.1.13.10 4.2.7.2.686 [id number] 009 [id number] [facility] 2023-01-21 00:00:00 2023-01-21 00:00:00 Telephone Seraallison [facility]?MALIKA [facility] MED[facility] OFFICE BUILD[facility] 1.84.114 350.1.13.10 4.2.7.2.686 [id number] 044 [id number] [facility] 2023-01-20 00:00:00 2023-01-20 00:00:00 Patient Secure Msg Doctor Unassigned, [place] [facility] 1.2.114 350.1.13.10 4.2.7.2.686 [id number] 019 [id number] [facility] 2023-01-19 00:00:00 2023-01-19 00:00:00 Orders Only Doctor Unassigned, [place] [facility] 1.2840.114 350.1.13.10 4.2.7.2.686 [id number] 009 [id number] [facility] 2023-01-18 09:40:00 2023-01-18 09:40:00 Outpatient BRIAN PRUETT [facility] [id number] [facility] 2023-01-10 10:40:00 2023-01-10 10:40:00 Outpatient BRIAN PRUETT [facility] [id number] [facility] 2023-01-09 00:00:00 2023-01-09 00:00:00 Orders Only Doctor Unassigned, [place] [facility] 1.2114 350.1.13.10 4.2.7.2.686 [id number] [id number] [facility] 2023-01-06 00:00:00 2023-01-06 00:00:00 Telephone Lindy [facility]?MALIKA [facility] OFFICE BUILD[facility] 1.84.114 350.1.13.10 4.2.7.2.686 [id number] 044 [id number] [facility] 2023-01-05 00:00:00 2023-01-05 00:00:00 Refill Lindy [facility] JOHN[facility] 1.2840.114 350.1.13.10 4.2.7.2.686 [id number] 044 [id number] [facility] 2022-12-24 10:40:00 2022-12-24 11:39:26 Outpatient R XENIA LOMELI [facility] [id number] [facility] 2022-12-24 10:40:00 2022-12-24 11:39:26 Office Visit Xenia Lomeli [facility] BUILDING 1.840.114 350.1.13.10 4.2.7.2.686 [id number] 080 [id number] [facility] 2022-12-24 00:00:00 2022-12-24 00:00:00 Telephone [facility] OFFICE BUILD[facility] 1.840.114 350.1.13.10 4.2.7.2.686 [id number] 044 [id number] [facility] 2022-12-22 00:00:00 2022-12-22 00:00:00 Refill [facility]y [facility] JOHN?[facility] OFF[facility] BUILD[facility] 1.2.840.114 350.1.13.10 4.2.7.2.686 [id number] 044 [id number] [facility] 2022-12-21 10:40:00 2022-12-21 11:18:46 Outpatient R MARYCARMEN ROJAS [facility] [id number] [facility] 2022-12-21 10:40:00 2022-12-21 11:18:46 Office Visit Marycarmen Rojas [facility] BUILD[facility] 1.2.840.114 350.1.13.10 4.2.7.2.686 [id number] 059 [id number] [facility] 2022-12-21 00:00:00 2022-12-21 00:00:00 Orders Only Doctor Unassigned, [place] [facility] 1.2.840.114 350.1.13.10 4.2.7.2.686 [id number] 009 [id number] [facility] 2022-12-17 11:40:00 2022-12-17 11:40:00 Outpatient R XENIA LOMELI [facility] [id number] [facility] 2022-12-17 00:00:00 2022-12-17 00:00:00 Orders Only Doctor Unassigned, [place] [facility] 1.2840.114 350.1.13.10 4.2.7.2.686 [id number] [id number] [facility] 2022-12-14 00:00:00 2022-12-14 00:00:00 Orders Only Doctor Unassigned, [place] [facility] 1.2840.114 350.1.13.10 4.2.7.2.686 [id number] [id number] [facility] 2022-12-09 09:00:00 2022-12-09 10:30:44 Outpatient R BRIAN ISRAEL [facility] [id number] [facility] 2022-12-09 09:00:00 2022-12-09 10:30:44 Office Visit Brian Israel [facility] MED[facility] OFFICE BUILDING 1.2.840.114 350.1.13.10 4.2.7.2.686 [id number] 044 [id number] [facility] 2022-12-09 00:00:00 2022-12-09 00:00:00 Orders Only Doctor Unassigned, [place] [facility] 1.2840.114 350.1.13.10 4.2.7.2.686 [id number] 009 [id number] [facility] 2022-12-08 00:00:00 2022-12-08 00:00:00 Telephone Lindy [facility]?MALIKA [facility] MEDICAL OFFICE BUILDING 1.2.840.114 350.1.13.10 4.2.7.2.686 [id number] 044 [id number] [facility] 2022-11-30 11:45:00 2022-11-30 11:45:00 Outpatient R MISA CEBALLOS [facility] [id number] [facility] 2022-11-29 00:00:00 2022-11-29 00:00:00 Refill Erick Larios [facility] OFFICE [facility] 1.2.840.114 350.1.13.10 4.2.7.2.686 [id number] [facility] 2022-11-26 13:40:00 2022-11-26 13:40:00 Outpatient R BRIAN [facility] [id number] [facility] 2022-11-25 11:00:00 2022-11-25 11:00:00 Outpatient R MICHOACANO WILKES SHIWAN [facility] [id number] [facility] 2022-11-22 15:00:00 2022-11-22 15:00:00 Outpatient R HARRIET ERICK LARIOS SUAREZ [facility] [id number] [facility] 2022-11-18 00:00:00 2022-11-18 00:00:00 Telephone Lindy [facility]?MALIKA [facility] MEDICAL OFFICE [facility] 1.2.840.114 350.1.13.10 4.2.7.2.686 [id number] 044 [id number] [facility] 2022-11-16 10:40:00 2022-11-16 10:40:00 Outpatient R BRIAN [facility] [id number] [facility] 2022-11-10 00:00:00 2022-11-10 00:00:00 Telephone Kley, [facility] JOHN?MALIKA [facility] OFF[facility] BUILDING 1..840.114 350.1.13.10 4.2.7.2.686 [id number] 044 [id number] [facility] 2022-11-10 00:00:00 2022-11-10 00:00:00 Orders Only Doctor Unassigned, [place] [facility] 1.840.114 350.1.13.10 4.2.7.2.686 [id number] [id number] [facility] 2022-11-09 10:30:00 2022-11-09 10:30:00 Outpatient R CONSTANCE STONE [facility] [id number] [facility] 2022-11-08 11:20:00 2022-11-08 11:20:00 Outpatient R MARYCARMEN ROJAS [facility] [id number] [facility] 2022-10-29 00:00:00 2022-10-29 00:00:00 Telephone Lindy [facility] JOHN?[facility]ALIKA [facility] OFF[facility] BUILDING 1..840.114 350.1.13.10 4.2.7.2.686 [id number] 044 [id number] [facility] 2022-10-28 13:00:00 2022-10-28 13:40:00 Telemedici ne Visit Lindy [facility] JOHN?[facility]ILD[facility] 1..840.114 350.1.13.10 4.2.7.2.686 [id number] 044 [id number] [facility] 2022-10-28 13:00:00 2022-10-28 13:00:00 Outpatient R [facility]RIAN [facility] [id number] [facility] 2022-10-28 00:00:00 2022-10-28 00:00:00 Refill Lindy [facility] JOHN?[facility] 1.840.114 350.1.13.10 4.2.7.2.686 [id number] 044 [id number] [facility] 2022-10-28 00:00:00 2022-10-28 00:00:00 Orders Only Doctor Unassigned, [place] [facility] 1.2840.114 350.1.13.10 4.2.7.2.686 [id number] [facility] 2022-10-26 13:40:00 2022-10-26 13:40:00 Outpatient R BRIAN [facility] [id number] [facility] 2022-10-25 00:00:00 2022-10-25 00:00:00 Telephone Lindy [facility] JOHN?[facility] 1.840.114 350.1.13.10 4.2.7.2.686 [id number] [id number] [facility] 2022-10-25 00:00:00 2022-10-25 00:00:00 Telephone [facility]y [facility] 1.2840.114 350.1.13.10 4.2.7.2.686 [id number] [facility] 2022-10-19 10:30:00 2022-10-19 10:30:00 Outpatient R JAMSHID EARLY [facility] [id number] [facility] 2022-10-18 00:00:00 2022-10-18 00:00:00 [facility] 1.2840.114 350.1.13.10 4.2.7.2.686 [id number] [id number] [facility] 2022-10-15 00:00:00 2022-10-15 00:00:00 Telephone Jamshid Early [facility] 1.2.840.114 350.1.13.10 4.2.7.2.686 [id number] [facility] 2022-10-15 00:00:00 2022-10-15 00:00:00 Orders Only Doctor Unassigned, [place] [facility] 1.2.840.114 350.1.13.10 4.2.7.2.686 [id number] [facility] 2022-10-14 00:00:00 2022-10-14 00:00:00 Telephone Lindy [facility] JOHN?[facility] 1.2840.114 350.1.13.10 4.2.7.2.686 [id number] [id number] [facility] 2022-10-13 00:00:00 2022-10-13 00:00:00 Refill Lindy [facility] JOHN?[facility] 1.2840.114 350.1.13.10 4.2.7.2.686 [id number] [id number] [facility] 2022-10-13 00:00:00 2022-10-13 00:00:00 [facility] 1.2840.114 350.1.13.10 4.2.7.2.686 [id number] 044 [id number] [facility] 2022-10-11 00:00:00 2022-10-11 00:00:00 Patient Outreach Talia Kelly [facility] JOHN?[facility] 1.2840.114 350.1.13.10 4.2.7.2.686 [id number] [id number] [facility] 2022-10-07 00:00:00 2022-10-07 00:00:00 Telephone Lindy [facility] JOHN?[facility] 1.2840.114 350.1.13.10 4.2.7.2.686 [id number] [id number] [facility] 2022-09-30 00:00:00 2022-09-30 00:00:00 Telephone Lindy [facility] JOHN?[facility] 1.2840.114 350.1.13.10 4.2.7.2.686 [id number] 044 [id number] [facility] 2022-09-28 11:45:00 2022-09-28 12:13:52 Vac Press Operator Visit Lab, Cameron - Sharath [facility] 1.20.114 350.1.13.10 4.2.7.2.686 [id number] [facility] 2022-09-28 10:40:00 2022-09-28 11:44:33 Outpatient R [facility] [id number] [facility] 2022-09-28 10:40:00 2022-09-28 11:44:33 Office Visit Lindy [facility] JOHN?MALIKA [facility] MED[facility] OFFICE BUILDING 1.0.114 350.1.13.10 4.2.7.2.686 [id number] 044 [id number] [facility] 2022-09-28 00:00:00 2022-09-28 00:00:00 Patient Outreach Talia Kelly [facility] JOHN?[facility] OFF[facility] BUILD[facility] 1.0.114 350.1.13.10 4.2.7.2.686 [id number] 044 [id number] [facility] 2022-09-28 00:00:00 2022-09-28 00:00:00 Orders Only Doctor Unassigned, [place] [facility] 1.2840.114 350.1.13.10 4.2.7.2.686 [id number] [id number] [facility] 2022-09-27 00:00:00 2022-09-27 00:00:00 Orders Only Doctor Unassigned, [place] [facility] 1.2840.114 350.1.13.10 4.2.7.2.686 [id number] [id number] [facility] 2022-09-23 00:00:00 2022-09-23 00:00:00 Telephone Brian Israel [facility]A [facility] OFF[facility] BUILD[facility] 1.2.840.114 350.1.13.10 4.2.7.2.686 [id number] 044 [id number] [facility] 2022-09-22 00:00:00 2022-09-22 00:00:00 Telephone Jamshid Early [facility] NAL BUILDING 1.2.840.114 350.1.13.10 4.2.7.2.686 [id number] 059 [id number] [facility] 2022-09-22 00:00:00 2022-09-22 00:00:00 Orders Only Doctor Unassigned, [place] [facility] 1.2840.114 350.1.13.10 4.2.7.2.686 [id number] [id number] [facility] 2022-09-18 00:00:00 2022-09-18 00:00:00 Orders Only Doctor Unassigned, [place] [facility] 1.2840.114 350.1.13.10 4.2.7.2.686 [id number] 009 [id number] [facility] 2022-09-13 11:22:44 2022-09-13 23:59:00 Outpatient R JAMSHID EARLY [facility] [id number] [facility] 2022-09-13 11:22:44 2022-09-13 23:59:00 Hospital Encounter Jamshid Early [facility] 1.2840.114 350.1.13.10 4.2.7.2.686 [id number] [facility] 2022-09-11 00:00:00 2022-09-11 00:00:00 Orders Only Doctor Unassigned, [place] [facility] 1.2840.114 350.1.13.10 4.2.7.2.686 [id number] [id number] [facility] 2022-09-07 14:00:00 2022-09-07 14:53:27 Outpatient R JAMSHID EARLY [facility] [id number] [facility] 2022-09-07 14:00:00 2022-09-07 14:53:27 Office Visit Jamshid Early [facility] NAL BUILDING 1.840114 350.1.13.10 4.2.7.2.686 [id number] 059 [id number] [facility] 2022-09-07 00:00:00 2022-09-07 00:00:00 Refill [facility]y [facility] OFF[facility] BUILD[facility] 1.840.114 350.1.13.10 4.2.7.2.686 [id number] 044 [id number] [facility] 2022-09-07 00:00:00 2022-09-07 00:00:00 Orders Only Doctor Unassigned, [place] [facility] 1.20.114 350.1.13.10 4.2.7.2.686 [id number] [id number] [facility] 2022-09-02 00:00:00 2022-09-02 00:00:00 Telephone [facility] MED[facility] OFF[facility] BUILD[facility] 1.840.114 350.1.13.10 4.2.7.2.686 [id number] 044 [id number] [facility] 2022-09-02 00:00:00 2022-09-02 00:00:00 Telephone [facility]y [facility] NAL BUILDING 1.840.114 350.1.13.10 4.2.7.2.686 [id number] 044 [id number] [facility] 2022-09-01 00:00:00 2022-09-01 00:00:00 [facility] OFF[facility] BUILD[facility] 1.84.114 350.1.13.10 4.2.7.2.686 [id number] 044 [id number] [facility] 2022-08-31 10:40:00 2022-08-31 11:30:07 Outpatient R LINDY [facility] [id number] [facility] 2022-08-31 10:40:00 2022-08-31 11:30:07 Office Visit Lindy [facility] OFFICE BUILDING 1.84.114 350.1.13.10 4.2.7.2.686 [id number] 044 [id number] [facility] 2022-08-30 11:45:00 2022-08-30 13:43:33 Office Visit Misa Ceballos [facility] 1.84.114 350.1.13.10 4.2.7.2.686 [id number] [facility] 2022-08-30 11:45:00 2022-08-30 11:45:00 Outpatient R MISA CEBALLOS [facility] [id number] [facility] 2022-08-25 00:00:00 2022-08-25 00:00:00 [facility] 1.84.114 350.1.13.10 4.2.7.2.686 [id number] 044 [id number] [facility] 2022-08-16 00:00:00 2022-08-16 00:00:00 Telephone Lindy [facility] JOHN?MALIKA [facility] MED[facility] OFFICE BUILDING 1.2.840.114 350.1.13.10 4.2.7.2.686 [id number] 044 [id number] [facility] 2022-08-13 10:30:00 2022-08-13 11:59:43 Out[facility] [id number] [facility] 2022-08-13 10:30:00 2022-08-13 11:59:43 Office Visit Michoacano Wilkes [facility] NAL BUILDING 1.2.840.114 350.1.13.10 4.2.7.2.686 [id number] [id number] [facility] 2022-08-11 00:00:00 2022-08-11 00:00:00 Refill Lindy [facility] JOHN?[facility] OFF[facility] BUILD[facility] 1.2.840.114 350.1.13.10 4.2.7.2.686 [id number] 044 [id number] [facility] 2022-08-05 00:00:00 2022-08-05 00:00:00 Telephone [facility] JOHN?[facility] MED[facility] OFFICE BUILDING 1.2.840.114 350.1.13.10 4.2.7.2.686 [id number] 044 [id number] [facility] 2022-08-03 00:00:00 2022-08-03 00:00:00 Telephone Lindy [facility] JOHN?[facility] OFF[facility] BUILD[facility] 1.2.840.114 350.1.13.10 4.2.7.2.686 [id number] 044 [id number] [facility] 2022-08-03 00:00:00 2022-08-03 00:00:00 Orders Only Doctor Unassigned, [place] [facility] 1.84.114 350.1.13.10 4.2.7.2.686 [id number] [id number] [facility] 2022-07-30 11:20:00 2022-07-30 12:10:00 Outpatient R [facility] [id number] [facility] 2022-07-30 11:20:00 2022-07-30 12:10:00 Office Visit Lindy [facility]ALIKA [facility] OFFICE BUILDING 1.840.114 350.1.13.10 4.2.7.2.686 [id number] 044 [id number] [facility] 2022-07-30 00:00:00 2022-07-30 00:00:00 Refill Erick Larios [facility] OFF[facility] BUILD[facility] 1.840.114 350.1.13.10 4.2.7.2.686 [id number] [facility] 2022-07-20 14:20:00 2022-07-20 15:53:29 Outpatient R MARYCARMEN ROJAS [facility] [id number] [facility] 2022-07-20 14:20:00 2022-07-20 15:00:00 Office Visit Marycarmen Rojas [facility] NAL BUILDING 1.840.114 350.1.13.10 4.2.7.2.686 [id number] 059 [id number] [facility] 2022-07-15 11:53:14 2022-07-15 23:59:00 Outpatient R LINDY BRIAN [facility] [id number] [facility] 2022-07-15 11:00:00 2022-07-15 13:05:09 Office Visit [facility] MED[facility] OFFICE BUILDING 1.840.114 350.1.13.10 4.2.7.2.686 [id number] 044 [id number] [facility] 2022-07-14 00:00:00 2022-07-14 00:00:00 Telephone [facility] 1..114 350.1.13.10 4.2.7.2.686 [id number] 044 [id number] [facility] 2022-07-07 11:00:00 2022-07-07 11:00:00 Outpatient R ERICK LARIOS, SUAREZ [facility] [id number] [facility] 2022-07-07 00:00:00 2022-07-07 00:00:00 Transition of Care Bridgette Black [facility] 1..114 350.1.13.10 4.2.7.2.686 [id number] [facility] 2022-06-26 11:39:00 2022-07-05 17:22:00 In[facility] [id number] [facility] 2022-06-26 11:39:00 2022-07-05 17:22:00 Hospital Encounter Ramírez Culp, Patel Jarvis, Bladimir Fajardo [facility] 1..114 350.1.13.10 4.2.7.2.686 [id number] 080 [id number] [facility] 2022-06-08 10:40:00 2022-06-08 11:00:15 Outpatient R LINDY [facility] [id number] [facility] 2022-06-08 10:40:00 2022-06-08 11:00:15 Office Visit [facility]y [facility] 1.84.114 350.1.13.10 4.2.7.2.686 [id number] 044 [id number] [facility] 2022-06-08 00:00:00 2022-06-08 00:00:00 Telephone Lindy [facility] JOHN?[facility] 1.2.840.114 350.1.13.10 4.2.7.2.686 [id number] 044 [id number] [facility] 2022-06-01 11:45:00 2022-06-01 12:08:31 Outpatient R MISA CEBALLOS [facility] [id number] [facility] 2022-06-01 11:45:00 2022-06-01 12:08:31 Office Visit Misa Ceballos [facility] 1.2.840.114 350.1.13.10 4.2.7.2.686 [id number] [facility] 2022-05-31 00:00:00 2022-05-31 00:00:00 Telephone Lindy [facility] JOHN?MALIKA [facility] MEDICAL OFFICE BUILDING 1.2.840.114 350.1.13.10 4.2.7.2.686 [id number] 044 [id number] [facility] 2022-05-24 00:00:00 2022-05-24 00:00:00 Telephone Lindy [facility] JOHN?MALIKA [facility] MEDICAL OFFICE BUILDING 1.2.840.114 350.1.13.10 4.2.7.2.686 [id number] 044 [id number] [facility] 2022-05-24 00:00:00 2022-05-24 00:00:00 [facility]MALIKA [facility] MED[facility] OFFICE BUILDING 1.2.840.114 350.1.13.10 4.2.7.2.686 [id number] 044 [id number] [facility] 2022-05-22 00:00:00 2022-05-22 00:00:00 [facility]ill [facility] OFF[facility] BUILDING 1.2840.114 350.1.13.10 4.2.7.2.686 [id number] 044 [id number] [facility] 2022-05-20 00:00:00 2022-05-20 00:00:00 Orders Only Doctor Unassigned, [place] [facility] 1.2840.114 350.1.13.10 4.2.7.2.686 [id number] [id number] [facility] 2022-05-18 11:00:00 2022-05-18 11:00:00 Outpatient R LINDY [facility] [id number] [facility] 2022-05-14 00:00:00 2022-05-14 00:00:00 Telephone [facility]y [facility] MED[facility] OFFICE BUILDING 1.20.114 350.1.13.10 4.2.7.2.686 [id number] 044 [id number] [facility] 2022-05-12 00:00:00 2022-05-12 00:00:00 Patient Outreach Nehal Titus [facility] MED[facility] OFFICE BUILDING 1.2840.114 350.1.13.10 4.2.7.2.686 [id number] 044 [id number] [facility] 2022-05-11 00:00:00 2022-05-11 00:00:00 Telephone Marycarmen Rojas [facility] MEDICAL OFFICE BUILDING 1.2840.114 350.1.13.10 4.2.7.2.686 [id number] 059 [id number] [facility] 2022-05-10 13:40:00 2022-05-10 15:15:11 [facility] 1.2840.114 350.1.13.10 4.2.7.2.686 [id number] 044 [id number] [facility] 2022-05-10 11:30:00 2022-05-10 11:45:00 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, Adc Lab Sushil Persaud Valarie [facility] BUILDING 1.840.114 350.1.13.10 4.2.7.2.686 [id number] [facility] 2022-05-10 10:40:00 2022-05-10 11:19:43 Outpatient Diogenes ROJAS MARYCARMEN [facility] [id number] [facility] 2022-05-10 10:40:00 2022-05-10 11:19:43 Office Visit Valarie Marycarmen L [facility] 1.84.114 350.1.13.10 4.2.7.2.686 [id number] 059 [id number] [facility] 2022-05-10 00:00:00 2022-05-10 00:00:00 [facility] 1.840.114 350.1.13.10 4.2.7.2.686 [id number] 044 [id number] [facility] 2022-05-10 00:00:00 2022-05-10 00:00:00 Orders Only Doctor Unassigned, [place] [facility] 1.84.114 350.1.13.10 4.2.7.2.686 [id number] [id number] [facility] 2022-05-07 00:00:00 2022-05-07 00:00:00 Telephone [facility] MEDICAL OFFICE BUILDING 1.284.114 350.1.13.10 4.2.7.2.686 [id number] 044 [id number] [facility] 2022-05-04 11:15:00 2022-05-04 11:15:00 Outpatient R MISA CEBALLOS [facility] [id number] [facility] 2022-05-03 00:00:00 2022-05-03 00:00:00 Orders Only Doctor Unassigned, [place] [facility] 1.2840.114 350.1.13.10 4.2.7.2.686 [id number] [id number] [facility] 2022-05-01 00:00:00 2022-05-01 00:00:00 Patient Secure Msg Doctor Unassigned, [place] [facility] 1.20.114 350.1.13.10 4.2.7.2.686 [id number] [id number] [facility] 2022-04-29 10:40:00 2022-04-29 11:39:00 Outpatient Diogenes [facility] [id number] [facility] 2022-04-29 10:40:00 2022-04-29 11:39:00 Office Visit [facility] MEDICAL OFFICE BUILDING 1.840.114 350.1.13.10 4.2.7.2.686 [id number] 044 [id number] [facility] 2022-04-27 00:00:00 2022-04-27 00:00:00 Refill [facility] MEDICAL OFFICE BUILDING 1.2840.114 350.1.13.10 4.2.7.2.686 [id number] 044 [id number] [facility] 2022-04-23 00:00:00 2022-04-23 00:00:00 Telephone Sushil Persaud [facility] N[facility] BUILD[facility] 1.2.840.114 350.1.13.10 4.2.7.2.686 [id number] 059 [id number] [facility] 2022-04-22 09:43:20 2022-04-22 23:59:00 Outpatient R KLEY, [facility] [id number] [facility] 2022-04-22 10:15:00 2022-04-22 10:30:00 Vac Press Operator Visit Lab, Cameron Early [facility] JOHN?MALIKA [facility] MEDICAL OFFICE BUILDING 1.2.114 350.1.13.10 4.2.7.2.686 [id number] [facility] 2022-04-22 09:00:00 2022-04-22 09:39:36 Office Visit Lindy [facility] JOHN?[facility] MEDICAL OFFICE BUILDING 1.2.114 350.1.13.10 4.2.7.2.686 [id number] 044 [id number] [facility] 2022-04-20 00:00:00 2022-04-20 00:00:00 Telephone [facility]y [facility] JOHN?[facility] MEDICAL OFFICE BUILDING 1..114 350.1.13.10 4.2.7.2.686 [id number] 044 [id number] [facility] 2022-04-14 00:00:00 2022-04-14 00:00:00 Telephone Erick Larios [facility] JOHN?[facility] MEDICAL OFFICE BUILDING 1..114 350.1.13.10 4.2.7.2.686 [id number] [facility] 2022-04-12 00:00:00 2022-04-12 00:00:00 Refill [facility]y [facility] JOHN?[facility] MEDICAL OFFICE BUILDING 1..114 350.1.13.10 4.2.7.2.686 [id number] 044 [id number] [facility] 2022-04-09 00:00:00 2022-04-09 00:00:00 Telephone Marycarmen Rojas [facility] NAL BUILDING 1.20.114 350.1.13.10 4.2.7.2.686 [id number] 059 [id number] [facility] 2022-04-08 00:00:00 2022-04-08 00:00:00 Telephone Marycarmen Rojas [facility] BUILDING 1.2.840.114 350.1.13.10 4.2.7.2.686 [id number] 059 [id number] [facility] 2022-04-07 13:45:00 2022-04-07 14:00:00 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, Adc Lab Marycarmen Rojas [facility] 1.2.840.114 350.1.13.10 4.2.7.2.686 [id number] [facility] 2022-04-07 11:20:00 2022-04-07 12:19:13 Outpatient R MARYCARMEN ROJAS [facility] [id number] [facility] 2022-04-07 11:20:00 2022-04-07 12:19:13 Office Visit Marycarmen Rojas [facility] 1.2.840.114 350.1.13.10 4.2.7.2.686 [id number] 059 [id number] [facility] 2022-04-07 00:00:00 2022-04-07 00:00:00 Orders Only Doctor Unassigned, [place] [facility] 1.2.840.114 350.1.13.10 4.2.7.2.686 [id number] 009 [id number] [facility] 2022-04-07 00:00:00 2022-04-07 00:00:00 Patient Secure Msg Doctor Unassigned, [place] [facility] 1.2.840.114 350.1.13.10 4.2.7.2.686 [id number] 019 [id number] [facility] 2022-03-29 13:30:00 2022-03-29 14:49:53 Outpatient R ERICK LARIOS, ERICK [facility] [id number] [facility] 2022-03-29 13:30:00 2022-03-29 14:49:53 Office Visit Erick Larios [facility] JOHN?MALIKA [facility] MEDICAL OFFICE BUILDING 1..840.114 350.1.13.10 4.2.7.2.686 [id number] [facility] 2022-03-29 12:15:00 2022-03-29 12:30:00 Vac Press Operator Visit Lab, Cameron - Sharath [facility] MEDICAL OFFICE BUILDING 1..840.114 350.1.13.10 4.2.7.2.686 [id number] [facility] 2022-03-25 11:00:00 2022-03-25 12:02:29 Outpatient R LINDY [facility] [id number] [facility] 2022-03-25 11:00:00 2022-03-25 12:02:29 [facility] 1..840.114 350.1.13.10 4.2.7.2.686 [id number] 044 [id number] [facility] 2022-03-25 11:00:00 2022-03-25 11:00:00 Outpatient R LINDY [facility] [id number] [facility] 2022-03-25 00:00:00 2022-03-25 00:00:00 Refill [facility]y [facility] MEDICAL OFFICE BUILDING 1..840.114 350.1.13.10 4.2.7.2.686 [id number] 044 [id number] [facility] 2022-03-24 00:00:00 2022-03-24 00:00:00 Orders Only Doctor Unassigned, [place] [facility] 1.2.840.114 350.1.13.10 4.2.7.2.686 [id number] [id number] [facility] 2022-03-23 00:00:00 2022-03-23 00:00:00 Refill [facility]?MALIKA [facility] MEDICAL OFFICE BUILDING 1.2.840.114 350.1.13.10 4.2.7.2.686 [id number] 044 [id number] [facility] 2022-03-23 00:00:00 2022-03-23 00:00:00 Refill [facility] MEDICAL OFFICE BUILDING 1.2.840.114 350.1.13.10 4.2.7.2.686 [id number] 044 [id number] [facility] 2022-03-16 10:40:00 2022-03-16 11:45:06 Outpatient R XENIA LOMELI [facility] [id number] [facility] 2022-03-16 10:40:00 2022-03-16 11:45:06 [facility] 1.2.840.114 350.1.13.10 4.2.7.2.686 [id number] [id number] [facility] 2022-03-16 10:40:00 2022-03-16 10:40:00 Outpatient R XENIA LOMELI [facility] [id number] [facility] 2022-03-16 00:00:00 2022-03-16 00:00:00 Orders Only Doctor Unassigned, [place] [facility] 1.2840.114 350.1.13.10 4.2.7.2.686 [id number] [id number] [facility] 2022-03-15 00:00:00 2022-03-15 00:00:00 [facility] BUILDING 1.2.840.114 350.1.13.10 4.2.7.2.686 [id number] 044 [id number] [facility] 2022-02-25 08:00:00 2022-02-25 09:13:51 Office Visit Lindy [facility] JOHN?[facility] OFF[facility] BUILDING 1.2.840.114 350.1.13.10 4.2.7.2.686 [id number] [id number] [facility] 2022-02-25 08:00:00 2022-02-25 09:13:51 [facility] [id number] 2022-02-25 00:00:00 2022-02-25 00:00:00 Orders Only Doctor Unassigned, [place] [facility] 1.840.114 350.1.13.10 4.2.7.2.686 [id number] [id number] [facility] 2022-02-24 00:00:00 2022-02-24 00:00:00 Abstract [facility]era [facility] BUILD[facility] 1.284.114 350.1.13.10 4.2.7.2.686 [id number] 044 [id number] [facility] 2022-02-22 00:00:00 2022-02-22 00:00:00 Transition of Care Bridgette Black 1.84.114 350.1.13.10 4.2.7.2.686 [id number] [facility] 2022-02-05 19:22:00 2022-02-20 12:17:00 Inpatient X BLADIMIR FERRARO [facility] [id number] [facility] 2022-02-05 19:22:00 2022-02-20 12:17:00 Hospital Encounter Jovany Bronosn, Jason Alvarenga, Bladimir Mondragon [facility] 1.2.840.114 350.1.13.10 4.2.7.2.686 [id number] [facility] 2022-02-05 00:00:00 2022-02-05 00:00:00 Telephone Lindy [facility] JOHN?MALIKA [facility] 1.2.840.114 350.1.13.10 4.2.7.2.686 [id number] [facility] 2022-02-03 00:00:00 2022-02-03 00:00:00 Telephone Lindy [facility] JOHN?MALIKA [facility] 1.2.840.114 350.1.13.10 4.2.7.2.686 [id number] [facility] 2022-02-01 13:00:00 2022-02-01 14:09:10 Office Visit Lindy [facility] JOHN?MALIKA [facility] 1.2.840.114 350.1.13.10 4.2.7.2.686 [id number] [facility] 2022-02-01 13:00:00 2022-02-01 14:09:10 Outpatient BRIAN PRUETT [facility] [id number] [facility] 2022-02-01 13:00:00 2022-02-01 13:00:00 Outpatient BRIAN PRUETT [facility] [id number] [facility] 2022-02-01 13:00:00 2022-02-01 13:00:00 Outpatient BRIAN PRUETT [facility] [id number] [facility] 2022-02-01 13:00:00 2022-02-01 13:00:00 Outpatient BRIAN PRUETT [facility] [id number] [facility] 2022-02-01 00:00:00 2022-02-01 00:00:00 [facility] 1.84.114 350.1.13.10 4.2.7.2.686 [id number] [facility] 2022-02-01 00:00:00 2022-02-01 00:00:00 [facility] 1.84114 350.1.13.10 4.2.7.2.686 [id number] [facility] 2022-02-01 00:00:00 2022-02-01 00:00:00 [facility] 1.84.114 350.1.13.10 4.2.7.2.686 [id number] [facility] 2022-01-29 10:00:00 2022-01-29 11:30:13 Outpatient R LES VYAS [facility] [id number] [facility] 2022-01-29 10:00:00 2022-01-29 11:30:13 [facility] 1.84.114 350.1.13.10 4.2.7.2.686 [id number] [facility] 2022-01-29 00:00:00 2022-01-29 00:00:00 Abstract Gabby [facility]yasFirstHealthANOOP LOPEZ?[facility] 1.84.114 350.1.13.10 4.2.7.2.686 [id number] [facility] 2022-01-29 00:00:00 2022-01-29 00:00:00 Refill Gabby [facility]FirstHealthAN[facility]OP LOPEZ?[facility] 1.840.114 350.1.13.10 4.2.7.2.686 [id number] [facility] 2022-01-25 00:00:00 2022-01-25 00:00:00 Orders Only Doctor Unassigned, [place] [facility] 1.2.840.114 350.1.13.10 4.2.7.2.686 [id number] [facility] 2022-01-21 00:00:00 2022-01-21 00:00:00 Telephone Piper Goddard [facility] 1.20.114 350.1.13.10 4.2.7.2.686 [id number] [facility] 2022-01-11 11:15:00 2022-01-11 11:15:00 Outpatient CONSTANCE THOMPSON [facility] [id number] [facility] 2022-01-05 13:45:00 2022-01-05 14:25:22 Ancillary Visit Pavithra Rachel Craig L [facility] 1.840.114 350.1.13.10 4.2.7.2.686 [id number] [facility] 2022-01-05 13:45:00 2022-01-05 14:25:22 Outpatient PHIILPPE LYNCH [facility] [id number] [facility] 2021-12-24 13:45:00 2021-12-24 14:45:00 Ancillary Visit Pavithra Rahcel Craig L [facility] 1.840.114 350.1.13.10 4.2.7.2.686 [id number] [facility] 2021-12-24 13:45:00 2021-12-24 13:45:00 Outpatient PHILIPPE LYNCH [facility] [id number] [facility] 2021-12-24 10:08:03 2021-12-24 10:46:00 Outpatient R GARY MCKAY [facility] [id number] [facility] 2021-12-24 00:00:00 2021-12-24 00:00:00 Outpatient R GARY MCKAY [facility] [id number] [facility] 2021-12-24 00:00:00 2021-12-24 00:00:00 Telephone Constance Stone [facility] 1.84.114 350.1.13.10 4.2.7.2.686 [id number] [facility] 2021-12-22 13:45:00 2021-12-22 14:45:00 Ancillary Visit Pavithra Rachel Craig L [facility] 1.84.114 350.1.13.10 4.2.7.2.686 [id number] [facility] 2021-12-17 14:00:00 2021-12-17 15:16:30 Office Visit Gary Mckay Diogenes [facility] 1..114 350.1.13.10 4.2.7.2.686 [id number] [facility] 2021-12-17 14:00:00 2021-12-17 15:16:30 Outpatient R GARY MCKAY [facility] [id number] [facility] 2021-12-17 14:00:00 2021-12-17 14:00:00 Outpatient R GARY MCKAY [facility] [id number] [facility] 2021-12-17 00:00:00 2021-12-17 00:00:00 Telephone Piper Goddard [facility] 1.84.114 350.1.13.10 4.2.7.2.686 [id number] [facility] 2021-12-16 13:45:00 2021-12-16 14:45:00 Ancillary Visit Pavithra Rachel Craig L [facility] 1.2.840.114 350.1.13.10 4.2.7.2.686 [id number] [facility] 2021-12-16 13:45:00 2021-12-16 13:45:00 Outpatient PHILIPPE LYNCH [facility] [id number] [facility] 2021-12-14 10:45:00 2021-12-14 10:45:00 Outpatient CONSTANCE THOMPSON [facility] [id number] [facility] 2021-12-14 10:45:00 2021-12-14 10:45:00 Outpatient CONSATNCE THOMPSON [facility] [id number] [facility] 2021-12-14 10:45:00 2021-12-14 10:45:00 Outpatient CONSTANCE THOMPSON [facility] [id number] [facility] 2021-12-10 13:00:00 2021-12-10 14:00:00 Ancillary Visit Pavithra Rachel Craig L [facility] 1.2.840.114 350.1.13.10 4.2.7.2.686 [id number] [facility] 2021-12-10 13:00:00 2021-12-10 13:00:00 Outpatient PHILIPPE LYNCH [facility] [id number] [facility] 2021-12-10 01:16:00 2021-12-10 01:16:00 Outpatient JOSH [facility] [id number] [facility] 2021-12-10 00:00:00 2021-12-10 00:00:00 Armand Ball, DO: [address], [place] [address] , Ph. [phone] [place] [address] - [facility] - [facility], [address] [id number] [facility] 2021-12-10 00:00:00 2021-12-10 00:00:00 Outpatient Vidal Armand Kidd [facility] [id number] 2021-12-08 13:00:00 2021-12-08 15:35:22 Outpatient PHILIPPE LYNCH [facility] [id number] [facility] 2021-12-08 13:00:00 2021-12-08 15:35:22 Ancillary Visit Pavithra Rachel Craig L [facility] 1.2.840.114 350.1.13.10 4.2.7.2.686 [id number] [facility] 2021-12-04 15:15:00 2021-12-04 16:23:35 Ancillary Visit Pavithra Rachel Craig L [facility] 1.2.840.114 350.1.13.10 4.2.7.2.686 [id number] [facility] 2021-12-02 09:30:00 2021-12-02 10:30:00 Ancillary Visit Pavithra Rachel Craig L [facility] 1.2.840.114 350.1.13.10 4.2.7.2.686 [id number] [facility] 2021-11-24 14:30:00 2021-11-24 15:35:05 Ancillary Visit Pavithra Rachle Craig L [facility] 1.2.840.114 350.1.13.10 4.2.7.2.686 [id number] [facility] 2021-11-20 14:30:00 2021-11-20 15:30:00 Ancillary Visit Wilson Philippe Fenton [facility] 1.2.840.114 350.1.13.10 4.2.7.2.686 [id number] [facility] 2021-11-18 13:45:00 2021-11-18 14:45:00 Ancillary Visit Wilson Philippe Fenton [facility] 1.2.840.114 350.1.13.10 4.2.7.2.686 [id number] [facility] 2021-11-13 10:15:00 2021-11-13 11:00:00 Ancillary Visit Pavithra Rachel Craig L [facility] 1.2.840.114 350.1.13.10 4.2.7.2.686 [id number] [facility] 2021-11-10 09:30:00 2021-11-10 10:15:00 Ancillary Visit Wilson Philippe Fenton [facility] 1.2.840.114 350.1.13.10 4.2.7.2.686 [id number] [facility] 2021-11-06 15:15:00 2021-11-06 16:00:00 Ancillary Visit Pavithra Rachel Craig L [facility] 1.2.840.114 350.1.13.10 4.2.7.2.686 [id number] [facility] 2021-11-04 11:00:00 2021-11-04 14:47:26 Outpatient R PHILIPPE LARSEN [facility] [id number] [facility] 2021-11-04 11:00:00 2021-11-04 14:47:26 Ancillary Visit Pavithra Rachel Philippe Hilda [facility] 1.0.114 350.1.13.10 4.2.7.2.686 [id number] [facility] 2021-10-28 14:30:00 2021-10-28 15:30:00 Ancillary Visit Pavithra Rachel Craig L [facility] 1.0.114 350.1.13.10 4.2.7.2.686 [id number] [facility] 2021-10-27 00:00:00 2021-10-27 00:00:00 Transition of Care Bridgette Black JEF MARLAND 1.0.114 350.1.13.10 4.2.7.2.686 [id number] [facility] 2021-10-26 11:47:00 2021-10-26 11:47:00 Outpatient ERICKSON_R [facility] [id number] 425 [facility] 2021-10-26 00:00:00 2021-10-26 00:00:00 Patient Secure Msg Doctor Unassigned, [place] [facility] 1.114 350.1.13.10 4.2.7.2.686 [id number] [facility] 2021-10-22 11:29:00 2021-10-25 12:30:00 Inpatient X APOLLO REESE [facility] [id number] [facility] 2021-10-22 11:29:00 2021-10-25 12:30:00 Hospital Encounter Randi Richardson Vinod P [facility] 1..114 350.1.13.10 4.2.7.2.686 [id number] [facility] 2021-10-07 13:00:00 2021-10-07 13:00:00 Outpatient PHILIPPE LYNCH [facility] [id number] [facility] 2021-10-07 13:00:00 2021-10-07 13:00:00 Outpatient PHILIPPE LYNCH [facility] [id number] [facility] 2021-09-30 10:00:00 2021-09-30 10:30:00 Office Visit [facility] 1..114 350.1.13.10 4.2.7.2.686 [id number] [facility] 2021-09-30 10:00:00 2021-09-30 10:00:00 Outpatient CLAY SALGUERO [facility] [id number] [facility] 2021-09-30 00:00:00 2021-09-30 00:00:00 Telephone Sebastian [facility] 1..114 350.1.13.10 4.2.7.2.686 [id number] [facility] 2021-09-30 00:00:00 2021-09-30 00:00:00 Orders Only Doctor Unassigned, [place] [facility] 1.840.114 350.1.13.10 4.2.7.2.686 [id number] [facility] 2021-09-29 10:15:00 2021-09-29 11:38:54 Outpatient PHILIPPE LYNCH [facility] [id number] [facility] 2021-09-16 13:45:00 2021-09-16 16:59:28 Ancillary Visit Arlet Schwartz Craig L [facility] 1.840.114 350.1.13.10 4.2.7.2.686 [id number] [facility] 2021-09-16 13:45:00 2021-09-16 16:59:28 Outpatient R PHILIPPE LARSEN [facility] [id number] [facility] 2021-09-16 13:45:00 2021-09-16 13:45:00 Outpatient R PHILIPPE LARSEN [facility] [id number] [facility] 2021-09-16 00:00:00 2021-09-16 00:00:00 Case Management Arlet Schwartz [facility] 1.2.840.114 350.1.13.10 4.2.7.2.686 [id number] 179 [id number] [facility] 2021-09-01 15:45:00 2021-09-01 16:00:00 Office Visit [facility] 1.2.840.114 350.1.13.10 4.2.7.2.686 [id number] [facility] 2021-09-01 15:45:00 2021-09-01 16:00:00 Office Visit [facility] 1.2.840.114 350.1.13.10 4.2.7.2.686 [id number] [facility] 2021-09-01 15:45:00 2021-09-01 15:45:00 Outpatient R CONSTANCE STONE [facility] [id number] [facility] 2021-08-31 12:23:00 2021-08-31 12:23:00 Outpatient JOSH [facility] [id number] [facility] 2021-08-31 00:00:00 2021-08-31 00:00:00 Armand Ball, DO: [address], [place] [address] , Ph. [phone] [facility] - [facility] - [facility], [address] [id number] [facility] 2021-08-31 00:00:00 2021-08-31 00:00:00 Outpatient Armand Ball [facility] [id number] 2021-08-18 23:55:00 2021-08-29 11:50:00 Inpatient 3 [place] [id number] [facility] 2021-08-19 00:00:00 2021-08-19 00:00:00 Transition of Care Bridgette Black 1..840.114 350.1.13.10 4.2.7.2.686 [id number] [facility] 2021-08-17 13:55:00 2021-08-18 22:30:00 Outpatient MONIQUE ROCK [facility] [id number] [facility] 2021-08-17 13:55:00 2021-08-18 22:30:00 [facility] 1..840.114 350.1.13.10 4.2.7.2.686 [id number] [facility] 2021-08-17 13:55:00 2021-08-18 22:30:00 Outpatient MONIQUE ROCK [facility] [id number] [facility] 2021-08-11 10:00:00 2021-08-11 10:20:00 Office Visit Xenia Lomeli [facility] 1..840.114 350.1.13.10 4.2.7.2.686 [id number] [facility] 2021-08-11 10:00:00 2021-08-11 10:00:00 Outpatient XENIA BURKS [facility] [id number] [facility] 2021-08-11 10:00:00 2021-08-11 10:00:00 Outpatient Diogenes XENIA LOMELI [facility] [id number] [facility] 2021-08-04 00:00:00 2021-08-04 00:00:00 Orders Only Doctor Unassigned, [place] [facility] 1..840.114 350.1.13.10 4.2.7.2.686 [id number] [facility] 2021-07-30 12:23:00 2021-07-30 12:23:00 Outpatient JOSH [facility] [id number] [facility] 2021-07-30 00:00:00 2021-07-30 00:00:00 Armand Ball, DO: [address], [facility], [place] [address] , Ph. [phone] [facility], [address] [id number] [facility] 2021-07-30 00:00:00 2021-07-30 00:00:00 Outpatient Armand Ball [facility] [id number] 2021-07-27 00:00:00 2021-07-27 00:00:00 Telephone Natalio Vigil [facility] I[facility]ABELA 1.2.840.114 350.1.13.10 4.2.7.2.686 [id number] [facility] 2021-07-23 00:00:00 2021-07-23 00:00:00 Transition of Care Bridgette Black 1.2.840.114 350.1.13.10 4.2.7.2.686 [id number] [facility] 2021-07-21 10:30:00 2021-07-21 10:30:00 Outpatient R HERMILAXIAOLANIE SARAVIAMISA [facility] [id number] [facility] 2021-07-21 00:00:00 2021-07-21 00:00:00 Telephone SebastianClay [facility] 1.2.840.114 350.1.13.10 4.2.7.2.686 [id number] [facility] 2021-07-14 12:36:00 2021-07-20 14:15:00 Inpatient X JOHANN VIGILUMESH [facility] [id number] [facility] 2021-07-14 12:36:00 2021-07-20 14:15:00 Hospital Encounter See Fish, Natalio Hinds Lilly [facility] 1.2.840.114 350.1.13.10 4.2.7.2.686 [id number] [facility] 2021-06-25 11:32:00 2021-06-25 11:32:00 Outpatient ERICKSON_R [facility] [id number] [place] [facility] 2021-06-04 03:56:00 2021-06-04 03:56:00 Outpatient ERICKSON_R [facility] [id number] [place] [facility] 2021-06-01 10:15:00 2021-06-01 10:15:00 Outpatient ASYA FAULKNER [facility] [id number] [facility] 2021-06-01 10:15:00 2021-06-01 10:15:00 Outpatient ASYA FAULKNER [facility] [id number] [facility] 2021-05-26 15:30:00 2021-05-26 15:30:00 Outpatient CONSTANCE THOMPSON [facility] [id number] [facility] 2021-05-26 15:07:34 2021-05-26 15:22:34 Office Visit Constance Stone [facility] 1.2840.114 350.1.13.10 4.2.7.2.686 [id number] [facility] 2021-05-26 11:22:00 2021-05-26 11:22:00 Outpatient ERCATALINO_R [facility] [id number] [place] [facility] 2021-05-26 00:00:00 2021-05-26 00:00:00 Telephone ArmaniIngegordo [facility] 1.2.840.114 350.1.13.10 4.2.7.2.686 [id number] [facility] 2021-05-26 00:00:00 2021-05-26 00:00:00 Orders Only Doctor Unassigned, [place] [facility] 1.2840.114 350.1.13.10 4.2.7.2.686 [id number] [facility] 2021-05-21 15:00:00 2021-05-21 16:29:05 Office Visit ArmaniIngegordo [facility] 1.2.840.114 350.1.13.10 4.2.7.2.686 [id number] [facility] 2021-05-21 15:00:00 2021-05-21 16:29:05 Outpatient R XENIA LOMELI [facility] [id number] [facility] 2021-05-21 15:00:00 2021-05-21 15:00:00 Outpatient XENIA BURKS [facility] [id number] [facility] 2021-05-19 13:55:32 2021-05-19 14:36:21 Office Visit Misa Ceballos [facility] 1.2840.114 350.1.13.10 4.2.7.2.686 [id number] [facility] 2021-05-19 13:55:00 2021-05-19 14:36:21 Outpatient R MISA CEBALLOS [facility] [id number] [facility] 2021-05-19 13:55:00 2021-05-19 14:36:21 Outpatient R MISA CEBALLOS [facility] [id number] [facility] 2021-05-18 02:16:00 2021-05-18 02:16:00 Outpatient JOSH [facility] [id number] [facility] 2021-05-18 00:00:00 2021-05-18 00:00:00 Outpatient Armand Ball [facility] [id number] 2021-05-18 00:00:00 2021-05-18 00:00:00 Armand Ball, DO: [address], [facility], [place] [address] , Ph. [phone] [facility] - [facility], [address] [id number] [facility] 2021-05-15 10:45:00 2021-05-15 10:45:00 Outpatient R HERMILARODGERMISA [facility] [id number] [facility] 2021-05-12 11:40:00 2021-05-12 11:40:00 Outpatient R ARMANIINGEGORDO [facility] [id number] [facility] 2021-05-11 10:00:00 2021-05-11 10:00:00 Outpatient R [facility] [id number] [facility] 2021-04-20 15:07:35 2021-04-20 16:31:53 Office Visit Gary Mckay R [facility] 1.2.840.114 350.1.13.10 4.2.7.2.686 [id number] [facility] 2021-04-20 15:30:00 2021-04-20 15:30:00 Outpatient R DIVYA GARY [facility] [id number] [facility] 2021-04-13 12:29:00 2021-04-13 12:29:00 Outpatient NASIRLUIZA [facility] [id number] [facility] 2021-04-13 00:00:00 2021-04-13 00:00:00 Outpatient Armand Ball [facility] [id number] 2021-04-13 00:00:00 2021-04-13 00:00:00 Armand Ball, DO: [address], [facility], [place] [address] , Ph. [phone] [place] [address] - [facility] - [facility], [address] [id number] [facility] 2021-03-24 00:00:00 2021-03-24 00:00:00 Telephone Constance Stone [facility] 1..840.114 350.1.13.10 4.2.7.2.686 [id number] [facility] 2021-03-03 13:57:44 2021-03-03 23:59:00 Hospital Encounter MckayChinoGary R [facility] 1.2.840.114 350.1.13.10 4.2.7.2.686 [id number] [facility] 2021-03-03 00:00:00 2021-03-03 00:00:00 Outpatient R GARY MCKAY [facility] [id number] [facility] 2021-02-26 15:00:00 2021-02-26 15:00:00 Outpatient R [facility] [id number] [facility] 2021-02-18 01:53:00 2021-02-18 01:53:00 Outpatient ERUCHEON_R [facility] [id number] [place] [facility] 2021-02-17 12:16:00 2021-02-17 12:16:00 Outpatient ERICKSON_R [facility] [id number] [place] [facility] 2021-02-17 00:00:00 2021-02-17 00:00:00 Outpatient Armand Ball [facility] [id number] 2021-02-17 00:00:00 2021-02-17 00:00:00 Armand Ball, DO: [address] , [place] [address] , Ph. [phone] [place] [address] - [facility] [address] [facility] [id number] [facility] 2021-02-16 11:45:00 2021-02-16 11:45:00 Outpatient R CONSTANCE STONE [facility] [id number] [facility] 2021-02-16 00:00:00 2021-02-16 00:00:00 Orders Only Doctor Unassigned, [place] [facility] ..840.114 350.1.13.10 4.2.7.2.686 [id number] [facility] 2021-02-12 13:06:20 2021-02-12 15:02:25 Ancillary Visit Pavithra Rachel Craig L [facility] 1..840.114 350.1.13.10 4.2.7.2.686 [id number] [facility] 2021-01-13 12:56:00 2021-01-13 12:56:00 Outpatient ERUCHEON_R [facility] [id number] [facility] 2021-01-13 00:00:00 2021-01-13 00:00:00 Armand Ball, DO: [address] [place] [address] , Ph. [facility], [facility] [facility] [id number] [facility] 2021-01-13 00:00:00 2021-01-13 00:00:00 Outpatient Armand Ball [facility] [id number] 2021-01-05 11:30:00 2021-01-05 11:30:00 Outpatient R [facility] [id number] [facility] 2021-01-01 13:00:00 2021-01-01 13:00:00 Outpatient R PHILIPPE LARSEN [facility] [id number] [facility] 2020-12-02 08:00:00 2020-12-02 08:00:00 Outpatient R PHILIPPE LARSEN [facility] [id number] [facility] 2020-11-27 14:40:00 2020-11-27 14:40:00 Outpatient CONSTANCE THOMPSON [facility] [id number] [facility] 2020-11-27 02:06:00 2020-11-27 02:06:00 Outpatient ERCATALINO_R [facility] [id number] [facility] 2020-11-27 00:00:00 2020-11-27 00:00:00 Armand Ball, DO: [address] [place] [address] , Ph. [facility] [id number] [place] [facility] 2020-11-27 00:00:00 2020-11-27 00:00:00 Outpatient Armand Ball [facility] [id number] 2020-11-25 10:30:00 2020-11-25 10:30:00 Outpatient CONSTANCE THOMPSON [facility] [id number] [facility] 2020-11-11 11:40:00 2020-11-11 11:40:00 Outpatient R STEFALEXIAXENIA Richards [facility] [id number] [facility] 2020-11-10 10:00:00 2020-11-10 10:00:00 Outpatient CHUCHO MOURA [facility] [id number] [facility] 2020-11-04 09:00:00 2020-11-04 09:00:00 Outpatient CONSTANCE THOMPSON [facility] [id number] [facility] 2020-10-30 11:59:00 2020-10-30 11:59:00 Outpatient JOSH [facility] [id number] [facility] 2020-10-30 00:00:00 2020-10-30 00:00:00 Armand Ball, DO: [address], [facility], [place] [address] , Ph. [phone] [place] [address] - [facility], DR. BLAL [id number] [facility] 2020-10-30 00:00:00 2020-10-30 00:00:00 Outpatient Armand Ball [facility] [id number] 2020-10-09 03:22:00 2020-10-09 03:22:00 Outpatient JOSH [facility] [id number] [facility] 2020-10-09 00:00:00 2020-10-09 00:00:00 Armand Ball, DO: [address], [place] [address] , Ph. [phone] [facility], DR. BALL [id number] [facility] 2020-10-09 00:00:00 2020-10-09 00:00:00 Outpatient Armand Ball [facility] [id number] 2020-10-08 10:55:05 2020-10-08 11:25:05 Office Visit Clay Case [facility] [id number] [facility] 2020-10-08 11:00:00 2020-10-08 11:00:00 Outpatient CLAY SALGUERO [facility] [id number] [facility] 2020-09-09 12:52:00 2020-09-09 12:52:00 Outpatient JOSH [facility] [id number] [facility] 2020-09-09 00:00:00 2020-09-09 00:00:00 Outpatient Armand Ball [facility] [id number] 2020-09-09 00:00:00 2020-09-09 00:00:00 Armand Ball, DO: [address], [place] [address] , Ph. [facility], DR. BALL [id number] [facility] 2020-08-25 00:00:00 2020-08-25 00:00:00 Telephone Xenia Lomeli BUILDING 1.2.840.114 350.1.13.10 4.2.7.2.686 [id number] [facility] 2020-08-12 11:41:00 2020-08-12 11:41:00 Outpatient ERICKSON_R [facility] [id number] [place] [facility] 2020-08-07 12:43:00 2020-08-07 12:43:00 Outpatient ERICKSON_R [facility] [id number] [address] [place] [facility] 2020-08-07 00:00:00 2020-08-07 00:00:00 Outpatient Armand Ball [facility] [id number] 2020-08-07 00:00:00 2020-08-07 00:00:00 Armand Ball, DO: [address], [facility], [place] [address] , Ph. [facility], DR. BALL [id number] [facility] 2020-08-04 10:49:00 2020-08-04 10:49:00 Outpatient ERICKSON_R [facility] [id number] [place] [facility] 2020-07-15 11:40:00 2020-07-15 11:40:00 Outpatient Diogenes LOMELI INGEGORDO [facility] [id number] [facility] 2020-07-15 08:17:25 2020-07-15 08:37:25 Telemedici ne Rose Mary SilvaInge richardsgordo SERGEYPERNELLRachel PENDING SALE TO [facility] 1.2.840.114 350.1.13.10 4.2.7.2.686 [id number] [facility] 2020-07-14 02:25:00 2020-07-14 02:25:00 Outpatient ERICKSON_R [facility] [id number] [place] [facility] 2020-07-10 04:06:00 2020-07-10 04:06:00 Outpatient ERICKSON_R [facility] [id number] [place] [facility] 2020-07-10 00:00:00 2020-07-10 00:00:00 Orders Only Doctor Unassigned, [place] [facility] 1..840.114 350.1.13.10 4.2.7.2.686 [id number] [id number] [facility] 2020-07-10 00:00:00 2020-07-10 00:00:00 Outpatient Armand Ball [facility] [id number] 2020-07-10 00:00:00 2020-07-10 00:00:00 Armand Ball, DO: [address], [facility], [place] [address] , Ph. [phone] [place] [address], DR[address] BALL [id number] [facility] ty Hospita [facility] 2020-07-09 11:05:04 2020-07-09 12:29:03 Office Visit Sebastian [facility] ..840.114 350.1.13.10 4.2.7.2.686 [id number] [facility] 2020-07-09 11:30:00 2020-07-09 11:30:00 Outpatient CLAY SALGEURO [facility] [id number] [facility] 2020-07-01 12:34:00 2020-07-01 12:34:00 Outpatient ERUCHEON_R [facility] [id number] [place] [facility] 2020-06-19 00:00:00 2020-06-19 00:00:00 [facility] 1.2.840.114 350.1.13.10 4.2.7.2.686 [id number] [id number] [facility] 2020-06-19 00:00:00 2020-06-19 00:00:00 Telephone Sebastian [facility] 1.2.840.114 350.1.13.10 4.2.7.2.686 [id number] [id number] [facility] 2020-04-25 00:00:00 2020-04-25 00:00:00 Telephone StefXenia graham [facility] 1.2840.114 350.1.13.10 4.2.7.2.686 [id number] [id number] [facility] 2020-04-18 08:33:49 2020-04-18 10:11:45 Telemedici ne Visit BerthaConstance ye [facility] 1.2840.114 350.1.13.10 4.2.7.2.686 [id number] [facility] 2020-04-18 08:30:00 2020-04-18 08:30:00 Outpatient R BERTHA CONSTANCE [facility] [id number] [facility] 2020-04-02 13:04:22 2020-04-02 14:11:31 Office Visit Case, [facility] 1.2.840.114 350.1.13.10 4.2.7.2.686 [id number] 071 [id number] [facility] 2020-04-02 13:00:00 2020-04-02 13:00:00 Outpatient R CLAY CASE [facility] [id number] [facility] 2020-03-28 13:26:47 2020-03-28 13:46:47 Telemedici ne Visit Stefgladys Xenia [facility] 1.2840.114 350.1.13.10 4.2.7.2.686 [id number] [facility] 2020-03-28 09:00:00 2020-03-28 09:00:00 Outpatient R ARMANI INGEGORDO [facility] [id number] [facility] 2020-03-21 08:00:00 2020-03-21 08:00:00 Outpatient R CONSTANCE STONE [facility] [id number] [facility] 2020-03-21 00:00:00 2020-03-21 00:00:00 Transition of Care Jacquelyn Delgado 1.114 350.1.13.10 4.2.7.2.686 [id number] [facility] 2020-03-21 00:00:00 2020-03-21 00:00:00 Refill Bartolome Haley [facility] 1.114 350.1.13.10 4.2.7.2.686 [id number] [facility] 2020-03-18 11:53:00 2020-03-20 17:30:00 Hospital Encounter Gavin Quesada Vinod P [facility] 1.114 350.1.13.10 4.2.7.2.686 [id number] [facility] 2020-03-20 08:00:00 2020-03-20 08:00:00 Outpatient CHUCHO PHELPS JR [facility] [id number] [facility] 2020-03-14 18:40:00 2020-03-14 22:52:00 Emergency See [facility] 1.114 350.1.13.10 4.2.7.2.686 [id number] [id number] [facility] 2020-03-14 00:00:00 2020-03-14 00:00:00 Telephone Constance Stone [facility] Building 1.2.840.114 350.1.13.10 4.2.7.2.686 [id number] [facility] 2020-02-14 08:30:29 2020-02-29 09:41:43 [facility] 1.2.840.114 350.1.13.10 4.2.7.2.686 [id number] [facility] 2020-02-15 12:52:26 2020-02-18 11:43:28 Vac Press Operator Visit [facility] Xenia Lomeli [facility] 1.2.840.114 350.1.13.10 4.2.7.2.686 [id number] [facility] 2020-02-15 11:01:17 2020-02-15 12:42:54 Office Visit Xenia Lomeli [facility] 1.2.840.114 350.1.13.10 4.2.7.2.686 [id number] 080 [id number] [facility] 2020-02-15 11:00:00 2020-02-15 11:00:00 Outpatient R XENIA LOMELI [facility] [id number] [facility] 2020-02-15 00:00:00 2020-02-15 00:00:00 Orders Only Doctor Unassigned, [place] [facility] 1.2.840.114 350.1.13.10 4.2.7.2.686 [id number] [id number] [facility] 2020-02-14 10:45:54 2020-02-14 11:00:54 Laboratory Only Only, Adc Test Constance Stone [facility] 1.2.840.114 350.1.13.10 4.2.7.2.686 [id number] [facility] 2020-02-14 08:15:00 2020-02-14 08:15:00 Outpatient R YESIKA STONENIFER [facility] [id number] [facility] 2020-02-13 16:29:00 2020-02-13 21:01:00 Emergency Lisa Obregon [facility] 1.2.840.114 350.1.13.10 4.2.7.2.686 [id number] [facility] 2020-02-13 00:00:00 2020-02-13 00:00:00 Orders Only Doctor Unassigned, [place] [facility] 1.2.840.114 350.1.13.10 4.2.7.2.686 [id number] [id number] [facility] 2020-02-08 00:00:00 2020-02-08 00:00:00 Ochoa Quinn [facility] Building 1.2.840.114 350.1.13.10 4.2.7.2.686 [id number] [facility] 2020-02-08 00:00:00 2020-02-08 00:00:00 Telephone Constance Stone [facility] Building 1.2.840.114 350.1.13.10 4.2.7.2.686 [id number] [facility] 2020-01-18 08:06:02 2020-01-18 08:59:38 Office Visit BerthaYesikaConstance [facility] Building 1.2.840.114 350.1.13.10 4.2.7.2.686 [id number] [facility] 2020-01-18 08:15:00 2020-01-18 08:15:00 Outpatient R CONSTANCE SOTNE [facility] [id number] [facility] 2020-01-11 10:15:00 2020-01-11 10:15:00 Outpatient R CONSTANCE STONE [facility] [id number] [facility] 2020-01-04 08:40:20 2020-01-11 07:46:14 Telemedici ne Visit Constance Stone [facility] Building 1.2.840.114 350.1.13.10 4.2.7.2.686 [id number] [facility] 2020-01-04 10:00:00 2020-01-04 10:00:00 Outpatient R CONSTANCE STONE [facility] [id number] [facility] 2019-09-27 08:40:46 2019-11-08 16:18:11 Telemedici ne Visit Constance Stone [facility] Building 1.2.840.114 350.1.13.10 4.2.7.2.686 [id number] [facility] 2019-11-02 08:14:39 2019-11-06 09:14:22 Telemedici ne Visit Constance Stone [facility] Building 1.2.840.114 350.1.13.10 4.2.7.2.686 [id number] [facility] 2019-11-02 10:15:00 2019-11-02 10:15:00 Outpatient R CONSTANCE STONE [facility] [id number] [facility] 2019-09-27 11:00:00 2019-09-27 11:00:00 Outpatient R CONSTANCE STONE [facility] [id number] [facility] 2019-09-18 10:10:43 2019-09-18 11:30:31 Vac Press Operator Visit Pc, Adc [facility] 1.2.840.114 350.1.13.10 4.2.7.2.686 [id number] 059 [id number] [facility] 2019-09-18 10:11:01 2019-09-18 11:30:06 Vac Press Operator Visit Pc, Adc Vascular Room 1 - Sushil Persaud [facility] Professio nal Building 1.2.840.114 350.1.13.10 4.2.7.2.686 [id number] 059 [id number] [facility] 2019-09-18 10:00:00 2019-09-18 10:00:00 Outpatient R [facility] [id number] [facility] 2019-08-31 00:00:00 2019-08-31 00:00:00 Telephone Ochoa Escamilla [facility] Building 1.2.840.114 350.1.13.10 4.2.7.2.686 [id number] [facility] 2019-08-28 00:00:00 2019-08-28 00:00:00 Telephone Ochoa Escamilla [facility] Building 1.2.840.114 350.1.13.10 4.2.7.2.686 [id number] [facility] 2019-08-28 00:00:00 2019-08-28 00:00:00 Refill Ochoa Escamilla [facility] Building 1.2.840.114 350.1.13.10 4.2.7.2.686 [id number] 231 [id number] [facility] 2019-08-24 10:27:26 2019-08-24 12:24:08 Office Visit Constance Stone [facility] nal Building 1.2.840.114 350.1.13.10 4.2.7.2.686 [id number] [facility] 2019-08-21 00:00:00 2019-08-21 00:00:00 Telephone Ochoa Ecsamilla [facility] Building 1.2.840.114 350.1.13.10 4.2.7.2.686 [id number] 231 [id number] [facility] 2019-08-21 00:00:00 2019-08-21 00:00:00 Orders Only Doctor Unassigned, [place] [facility] 1.2.840.114 350.1.13.10 4.2.7.2.686 [id number] [id number] [facility] 2019-08-21 00:00:00 2019-08-21 00:00:00 Letter (Out) Ochoa Escamilla [facility] Building 1.2.840.114 350.1.13.10 4.2.7.2.686 [id number] 231 [id number] [facility] 2019-08-18 00:00:00 2019-08-18 00:00:00 Telephone Ochoa Escamilla [facility] Building 1.2.840.114 350.1.13.10 4.2.7.2.686 [id number] 044 [id number] [facility] 2019-08-16 00:00:00 2019-08-16 00:00:00 Telephone Ochoa Escamilla [facility] Building 1.2.840.114 350.1.13.10 4.2.7.2.686 [id number] 044 [id number] [facility] 2019-08-13 00:00:00 2019-08-13 00:00:00 Telephone Ochoa Escamilla [facility] Building 1.2.840.114 350.1.13.10 4.2.7.2.686 [id number] 044 [id number] [facility] 2019-08-11 00:00:00 2019-08-11 00:00:00 Orders Only Doctor Unassigned, [place] [facility] 1.2.840.114 350.1.13.10 4.2.7.2.686 [id number] [id number] [facility] 2019-07-27 00:00:00 2019-07-27 00:00:00 Refill Jayden Mitchell [facility] Building 1.2.840.114 350.1.13.10 4.2.7.2.686 [id number] [facility] 2019-03-15 00:00:00 2019-03-15 00:00:00 [facility] Building 1.2.840.114 350.1.13.10 4.2.7.2.686 [id number] [facility] 2019-03-15 00:00:00 2019-03-15 00:00:00 Orders Only Doctor Unassigned, [place] [facility] 1.2.840.114 350.1.13.10 4.2.7.2.686 [id number] [id number] [facility] 2019-03-14 00:00:00 2019-03-14 00:00:00 Telephone Ochoa Escamilla [facility] Office Building One 1.2.840.114 350.1.13.10 4.2.7.2.686 [id number] 044 [id number] [facility] 2019-02-02 09:26:59 2019-03-02 15:02:45 Office Visit Ochoa Escamilla [facility] Building 1.2.840.114 350.1.13.10 4.2.7.2.686 [id number] [facility] 2019-02-28 00:00:00 2019-02-28 00:00:00 Telephone Ochoa Escamilla [facility] Building 1.2.840.114 350.1.13.10 4.2.7.2.686 [id number] 044 [id number] [facility] 2019-02-20 10:56:36 2019-02-20 11:40:54 Office Visit Jayden Mitchell [facility] Building 1.2.840.114 350.1.13.10 4.2.7.2.686 [id number] [facility] 2019-02-20 00:00:00 2019-02-20 00:00:00 Orders Only Doctor Unassigned, [place] [facility] 1.2.840.114 350.1.13.10 4.2.7.2.686 [id number] [id number] [facility] 2019-02-13 00:00:00 2019-02-13 00:00:00 Telephone Ochoa Escamilla [facility] Building 1.2.840.114 350.1.13.10 4.2.7.2.686 [id number] 044 [id number] [facility] 2019-02-02 10:49:58 2019-02-02 11:04:58 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, Adc Lab Ochoa Escamilla [facility] Building 1.2.840.114 350.1.13.10 4.2.7.2.686 [id number] [facility] 2019-02-02 00:00:00 2019-02-02 00:00:00 Telephone Ochoa Escamilla [facility] Building 1.2.840.114 350.1.13.10 4.2.7.2.686 [id number] [facility] 2019-01-31 13:13:24 2019-01-31 23:59:00 Hospital Encounter Dara Golden BUILDING 1.2.840.114 350.1.13.10 4.2.7.2.686 [id number] [id number] [facility] 2019-01-29 00:00:00 2019-01-29 00:00:00 Telephone Ochoa Escamilla [facility] 1.2.840.114 350.1.13.10 4.2.7.2.686 [id number] 044 [id number] [facility] 2019-01-26 11:59:24 2019-01-26 13:56:45 Office Visit Ochoa Escamilla [facility] 1.2.840.114 350.1.13.10 4.2.7.2.686 [id number] 231 [id number] [facility] 2019-01-24 00:00:00 2019-01-24 00:00:00 Telephone Ochoa Escamilla [facility] 1.2.840.114 350.1.13.10 4.2.7.2.686 [id number] 044 [id number] [facility] 2019-01-22 00:00:00 2019-01-22 00:00:00 Telephone Ochoa Escamilla [facility] 1.2.840.114 350.1.13.10 4.2.7.2.686 [id number] 044 [id number] [facility] 2019-01-16 00:00:00 2019-01-16 00:00:00 Orders Only Doctor Unassigned, [place] [facility] 1.2.840.114 350.1.13.10 4.2.7.2.686 [id number] [id number] [facility] 2018-12-28 00:00:00 2018-12-28 00:00:00 Orders Only Doctor Unassigned, [place] [facility] 1.2.840.114 350.1.13.10 4.2.7.2.686 [id number] [id number] [facility] 2018-08-24 00:00:00 2018-08-24 00:00:00 Orders Only Doctor Unassigned, [place] [facility] 1.2.840.114 350.1.13.10 4.2.7.2.686 [id number] [id number] [facility] Results Test Description Test Time Test Comments Results Result Co [facility] (89613[facility]2024-[facility]-16 23:52:55* Test Item Value Reference Range Interpretation Comme nts NA (test code = 0273404948) 141 mmol/L 135-145 K (test code = 0529660244) 3.5 mmol/L 3.5-5.0 CL (test code = 8085769476) 103 mmol/L 98-108 CO2 TOTAL (test code = 4233889262) 31 mmol/L 23-31 AGAP (test code = 7125641931) 7 2-16 BUN (test code = 7083084204) 17 mg/dL 7-23 GLUCOSE (test code = 1722667224) 74 mg/dL 70-110 CREATININE (test code = 2160-0) 1.30 mg/dL 0.50-1.04 H TOTAL BILI (test code = 4006942974) 0.8 mg/dL 0.1-1.1 CALCIUM (test code = 2311188647) 9.4 mg/dL 8.6-10.6 T PROTEIN (test code = 9351457591) 8.0 g/dL 6.3-8.2 ALBUMIN (test code = 5127026405) 4.0 g/dL 3.5-5.0 ALK PHOS (test code = 7791189435) 56 U/L 34-122 ALTv (test code = 1742-6) 11 U/L 5-35 AST(SGOT) (test code = 8671217378) 19 U/L 13-40 eGFR (test code = 28350-5) 42.4 mL/min/1.73m2 CKD-EPI eGFR (2020). Assuming creatinine has been stable day-to-day for at least three months, the eGFR indicates Category G3b (30 - 44 mL/min/1.73 m2) Lab Interpretation (test code = 12505-5) [facility]normal [facility] [id number] 23:52:34* Test Item Value Reference Range Interpretation Comme nts LIPASE (test code = 6615252685) 52 U/L 0-220 Lab Interpretation (test cod e = 81020-2) Normal [facility] WITH [id number] 23:40:33* Test Item Value Reference Range Interpretation Comme nts WBC (test code = 6690-2) 9.70 4.30-11.10 RBC (test code = 789-8) 4.87 3.93-5.25 HGB (test code = 718-7) 12.0 g/dL 11.6-15.0 HCT (test code = 4544-3) 38.8 % 35.7-45.2 MCV (test code = 787-2) 79.7 fL 80.6-95.5 L MCH (test code = 785-6) 24.6 pg 25.9-32.8 L MCHC (test code = 786-4) 30.9 g/dL 31.6-35.1 L RDW-SD (test code = 31319-5) 49.3 fL 39.0-49.9 RDW-CV (test code = 788-0) 17.4 % 12.0-15.5 H PLT (test code = 777-3) 288 166-358 MPV (test code = 77378-9) 10.3 fL 9.5-12.9 NRBC/100 WBC (test code = 0006793010) 0.0 0.0-10.0 NRBC x10^3 (test code = 4345309547) See_Comment [Automated messa ge] The system which generated this result transmitted reference range: 10*3/?L. The reference range was not used to interpret this result as normal/abnormal. GRAN MAT (NEUT) % (test code = 770-8) 74.4 % IMM GRAN % (test code = 9058702245) 0.50 % LYMPH % (test code = 736-9) 11.2 % MONO % (test code = 5905-5) 10.0 % EOS % (test code = 713-8) 3.4 % BASO % (test code = 706-2) 0.5 % GRAN MAT x10^3(ANC) (test code = 2274124955) 7.21 10*3/uL 1.88-7.09 H IMM GRAN x10^3 (test code = 9638092687) 0.05 10*3/uL 0.00-0.06 LYMPH x10^3 (test code = 731-0) 1.09 10*3/uL 1.32-3.29 L MONO x10^3 (test code = 742-7) 0.97 10*3/uL 0.33-0.92 H EOS x10^3 (test code = 711-2) 0.33 10*3/uL 0.03-0.39 BASO x10^3 (test code = 704-7) 0.05 10*3/uL 0.01-0.07 Lab Interpretation (test code = 20243-5) Abnormal [facility] 2 [id number] 22:10:15XR CHEST 2 VW History: SOB Comparison: 04/18/2023 Technique: PA and lateral radiographs Findings: Prominence of the interstitium again noted. No pleural effusion,parenchymal consolidation, or pneumothorax is identified. The cardiac silhouette is enlarged, unchanged. Tortuous aortic silhouette. No acute osseous abnormality is present. Partially visualized cervicalfusion hardware.[facility] Hemoglobin A1C [id number] 17:02:00* Test Item Value Reference Range Interpretation Comme [facility] POCT HBA1C (test code = 4548-4) 8.3 % 4-6 A Lab Interpretation (test cod e = 86037-7) Abnormal [facility] Hemoglobin A1C [id number] 17:02:00* Test Item Value Reference Range Interpretation Comme [facility] POCT HBA1C (test code = 4548-4) 8.3 % 4-6 A Lab Interpretation (test cod e = 38931-3) Abnormal [facility] Hemoglobin A1C [id number] 17:02:00* Test Item Value Reference Range Interpretation Comme [facility] POCT HBA1C (test code = 4548-4) 8.3 % 4-6 A Lab Interpretation (test cod e = 74281-0) Abnormal [facility] METABOLIC PANEL (NA, K, CL, CO2, GLUCOSE, BUN, CREATININE, CA)2023-10-30 22:18:04* Test Item Value Reference Range Interpretation Comme [facility] NA (test code = 1745797039) 138 mmol/L 135-145 K (test code = 2434816312) 4.1 mmol/L 3.5-5.0 CL (test code = 8784542155) 103 mmol/L 98-108 CO2 TOTAL (test code = 0932388341) 26 mmol/L 23-31 AGAP (test code = 5438647877) 9 2-16 BUN (test code = 4459795869) 15 mg/dL 7-23 GLUCOSE (test code = 0452591864) 177 mg/dL 70-110 H CREATININE (test code = 2160-0) 1.11 mg/dL 0.50-1.04 H CALCIUM (test code = 4438444001) 8.9 mg/dL 8.6-10.6 eGFR (test code = 04269-4) 51.6 mL/min/1.73m2 CKD-EPI eGFR (2020). Assuming creatinine has been stable day-to-day for at least three months, the eGFR indicates Category G3a (45 - 59 mL/min/1.73 m2) Lab Interpretation (test code = 60332-6) [facility] [id number] 22:08:20* Test Item Value Reference Range Interpretation Comme nts WBC (test code = 6690-2) 10.11 4.30-11.10 RBC (test code = 789-8) 4.59 3.93-5.25 HGB (test code = 718-7) 11.4 g/dL 11.6-15.0 L HCT (test code = 4544-3) 38.0 % 35.7-45.2 MCV (test code = 787-2) 82.8 fL 80.6-95.5 MCH (test code = 785-6) 24.8 pg 25.9-32.8 L MCHC (test code = 786-4) 30.0 g/dL 31.6-35.1 L RDW-SD (test code = 70558-6) 50.7 fL 39.0-49.9 H RDW-CV (test code = 788-0) 17.1 % 12.0-15.5 H PLT (test code = 777-3) 276 166-358 MPV (test code = 95951-3) 9.9 fL 9.5-12.9 NRBC/100 WBC (test code = 5001497644) 0.0 0.0-10.0 NRBC x10^3 (test code = 1859901489) See_Comment [Automated messa ge] The system which generated this result transmitted reference range: 10*3/?L. The reference range was not used to interpret this result as normal/abnormal. GRAN MAT (NEUT) % (test code = 770-8) 78.1 % IMM GRAN % (test code = 7640654055) 0.40 % LYMPH % (test code = 736-9) 11.3 % MONO % (test code = 5905-5) 5.7 % EOS % (test code = 713-8) 3.8 % BASO % (test code = 706-2) 0.7 % GRAN MAT x10^3(ANC) (test code = 0084771867) 7.90 10*3/uL 1.88-7.09 H IMM GRAN x10^3 (test code = 7134455015) 0.04 10*3/uL 0.00-0.06 LYMPH x10^3 (test code = 731-0) 1.14 10*3/uL 1.32-3.29 L MONO x10^3 (test code = 742-7) 0.58 10*3/uL 0.33-0.92 EOS x10^3 (test code = 711-2) 0.38 10*3/uL 0.03-0.39 BASO x10^3 (test code = 704-7) 0.07 10*3/uL 0.01-0.07 Lab Interpretation (test code = 76593-4) [facility] [id number] 21:39:16* Test Item Value Reference Range Interpretation Comme [facility] LACTIC ACID (test code = 2941467488) 1.21 mmol/L 0.50-2.20 Lab Interpretation (test cod e = 07439-6) [facility] [id number] 17:05:00* Test Item Value Reference Range Interpretation Comme nts POCT HBA1C (test code = 4548-4) 8.7 % 4-6 A Lab Interpretation (test cod e = 87079-1) Abnormal [facility] HEMOGLOBIN A1C [id number] 17:05:00* Test Item Value Reference Range Interpretation Comme [facility] POCT HBA1C (test code = 4548-4) 8.7 % 4-6 A Lab Interpretation (test cod e = 42339-4) Abnormal [facility] GLUCOSE (AUTOMATED)2023-04-19 16:42:14* Test Item Value Reference Range Interpretation Comme [facility] POCT GLU (test code = 3069149390) 239 mg/dL 70-110 H Lab Interpretation (test cod e = 11260-9) Abnormal [facility] GLUCOSE (AUTOMATED)2023-04-19 13:20:04* Test Item Value Reference Range Interpretation Comme [facility] POCT GLU (test code = 1550567300) 154 mg/dL 70-110 H Lab Interpretation (test cod e = 94582-1) Abnormal [facility] METABOLIC PANEL (NA, K, CL, CO2, GLUCOSE, BUN, CREATININE, CA)2023-04-19 10:19:08* Test Item Value Reference Range Interpretation Comme [facility] NA (test code = 5352859982) 138 mmol/L 135-145 K (test code = 0357257232) 3.9 mmol/L 3.5-5.0 CL (test code = 2076678750) 99 mmol/L 98-108 CO2 TOTAL (test code = 2574688026) 29 mmol/L 23-31 AGAP (test code = 0558220529) 10 2-16 BUN (test code = 4670290690) 23 mg/dL 7-23 GLUCOSE (test code = 1879219651) 135 mg/dL 70-110 H CREATININE (test code = 4400410431) 1.42 mg/dL 0.50-1.04 H CALCIUM (test code = 0696353942) 8.5 mg/dL 8.6-10.6 L eGFR (test code = 9930736821) 36.0 mL/min/1.73m2 MAJOR (test code = MAJOR) Association of Glomerular Filtration Rate (GFR) and Staging of Kidney Disease* + --+ --+ ------+| GFR (mL/min/1.73 m2) ?| With Kidney Damage ?| ?Without Kidney Damage+ --------+ --------+ +| ?>90 ?| ?Stage one ?| ? Normal ?+ ---+ ---+ -------+| ?60-89 ?| ?Stage two ?| ? Decreased GFR ? + --+ --+ ------+| ?30-59 ?| ?Stage three ?| ? Stage three ? + --+ --+ ------+| ?15-29 ?| ?Stage four ? | ? Stage four ?+ ---+ ---+ -------+| ?<15 (or dialysis) ? ?| ?Stage five ? | ? Stage five ?+ ---+ ---+ -------+ *Each stage assumes the associated GFR level has been in effect for at least three months. ?Stages 1 to 5, with or without kidney disease, indicate chronic kidney disease. Notes: Determination of stages one and two (with eGFR >59mL/min/1.73 m2) requires estimation of kidney damage for at least three months as defined by structural or functional abnormalities of the kidney, manifested by either:Pathological abnormalities or Markers of kidney damage (including abnormalities in the composition of the blood or urine or abnormalities in imaging tests). Lab Interpretation (test code = 05863-2) Abnormal [facility] WITH [id number] 10:05:27* Test Item Value Reference Range Interpretation Comme nts WBC (test code = 6690-2) 7.41 See_Comment [Automated [employer]] The system which generated this result transmitted reference range: 4.30 - 11.10 10*3/?L. The reference range was not used to interpret this result as normal/abnormal. RBC (test code = 789-8) 3.61 See_Comment L [Automated [employer]] The system which generated this result transmitted reference range: 3.93 - 5.25 10*6/?L. The reference range was not used to interpret this result as normal/abnormal. HGB (test code = 718-7) 9.1 g/dL 11.6-15.0 L HCT (test code = 4544-3) 30.3 % 35.7-45.2 L MCV (test code = 787-2) 83.9 fL 80.6-95.5 MCH (test code = 785-6) 25.2 pg 25.9-32.8 L MCHC (test code = 786-4) 30.0 g/dL 31.6-35.1 L RDW-SD (test code = 21954-7) 51.1 fL 39.0-49.9 H RDW-CV (test code = 788-0) 16.8 % 12.0-15.5 H PLT (test code = 777-3) 208 See_Comment [Automated messa ge] The system which generated this result transmitted reference range: 166 - 358 10*3/?L. The reference range was not used to interpret this result as normal/abnormal. MPV (test code = 45923-0) 10.5 fL 9.5-12.9 NRBC/100 WBC (test code = 4910633909) 0.0 See_Comment [Automated [employer] ss[employer]] The system which generated this result transmitted reference range: 0.0 - 10.0 /100 WBCs. The reference range was not used to interpret this result as normal/abnormal. NRBC x10^3 (test code = 8690983045) See_Comment [Automated messa ge] The system which generated this result transmitted reference range: 10*3/?L. The reference range was not used to interpret this result as normal/abnormal. GRAN MAT (NEUT) % (test code = 770-8) 68.6 % IMM GRAN % (test code = 3019834800) 0.70 % LYMPH % (test code = 736-9) 14.4 % MONO % (test code = 5905-5) 8.6 % EOS % (test code = 713-8) 7.0 % BASO % (test code = 706-2) 0.7 % GRAN MAT x10^3(ANC) (test code = 4532181283) 5.08 10*3/uL 1.88-7.09 IMM GRAN x10^3 (test code = 5314338041) 0.05 10*3/uL 0.00-0.06 LYMPH x10^3 (test code = 731-0) 1.07 10*3/uL 1.32-3.29 L MONO x10^3 (test code = 742-7) 0.64 10*3/uL 0.33-0.92 EOS x10^3 (test code = 711-2) 0.52 10*3/uL 0.03-0.39 H BASO x10^3 (test code = 704-7) 0.05 10*3/uL 0.01-0.07 Lab Interpretation (test code = 93700-1) Abnormal [facility] GLUCOSE (AUTOMATED)2023-04-19 04:45:03* Test Item Value Reference Range Interpretation Comme nts POCT GLU (test code = 4591013195) 184 mg/dL 70-110 H Lab Interpretation (test cod e = 79680-8) Abnormal [facility] GLUCOSE (AUTOMATED)2023-04-19 01:23:16* Test Item Value Reference Range Interpretation Comme nts POCT GLU (test code = 8166291525) 335 mg/dL 70-110 H Lab Interpretation (test cod e = 88454-1) Abnormal [facility] GLUCOSE (AUTOMATED)2023-04-18 21:46:30* Test Item Value Reference Range Interpretation Comme nts POCT GLU (test code = 5591869513) 159 mg/dL 70-110 H Lab Interpretation (test cod e = 90719-9) Abnormal [facility] GLUCOSE (AUTOMATED)2023-04-18 17:17:18* Test Item Value Reference Range Interpretation Comme nts POCT GLU (test code = 3611956255) 242 mg/dL 70-110 H Lab Interpretation (test cod e = 87629-8) Abnormal [facility] GLUCOSE (AUTOMATED)2023-04-18 13:11:03* Test Item Value Reference Range Interpretation Comme nts POCT GLU (test code = 9013563723) 218 mg/dL 70-110 H Lab Interpretation (test cod e = 41607-3) Abnormal [facility] METABOLIC PANEL (NA, K, CL, CO2, GLUCOSE, BUN, CREATININE, CA)2023-04-18 10:47:12* Test Item Value Reference Range Interpretation Comme nts NA (test code = 2944040685) 136 mmol/L 135-145 K (test code = 3048688628) 3.9 mmol/L 3.5-5.0 CL (test code = 3293762734) 99 mmol/L 98-108 CO2 TOTAL (test code = 4486331047) 30 mmol/L 23-31 AGAP (test code = 8633969834) 7 2-16 BUN (test code = 1891329460) 15 mg/dL 7-23 GLUCOSE (test code = 6159056657) 217 mg/dL 70-110 H CREATININE (test code = 8045351091) 1.10 mg/dL 0.50-1.04 H CALCIUM (test code = 9873722088) 8.4 mg/dL 8.6-10.6 L eGFR (test code = 0187164696) 48.3 mL/min/1.73m2 MAJOR (test code = MAJOR) Association of Glomerular Filtration Rate (GFR) and Staging of Kidney Disease* + --+ --+ ------+| GFR (mL/min/1.73 m2) ?| With Kidney Damage ?| ?Without Kidney Damage+ --------+ --------+ +| ?>90 ?| ?Stage one ?| ? Normal ?+ ---+ ---+ -------+| ?60-89 ?| ?Stage two ?| ? Decreased GFR ? + --+ --+ ------+| ?30-59 ?| ?Stage three ?| ? Stage three ? + --+ --+ ------+| ?15-29 ?| ?Stage four ? | ? Stage four ?+ ---+ ---+ -------+| ?<15 (or dialysis) ? ?| ?Stage five ? | ? Stage five ?+ ---+ ---+ -------+ *Each stage assumes the associated GFR level has been in effect for at least three months. ?Stages 1 to 5, with or without kidney disease, indicate chronic kidney disease. Notes: Determination of stages one and two (with eGFR >59mL/min/1.73 m2) requires estimation of kidney damage for at least three months as defined by structural or functional abnormalities of the kidney, manifested by either:Pathological abnormalities or Markers of kidney damage (including abnormalities in the composition of the blood or urine or abnormalities in imaging tests). Lab Interpretation (test code = 30595-5) Abnormal [facility] WITHOUT [id number] 10:37:31* Test Item Value Reference Range Interpretation Comme nts WBC (test code = 6690-2) 6.91 See_Comment [Automated message] The system which generated this result transmitted reference range: 4.30 - 11.10 10*3/?L. The reference range was not used to interpret this result as normal/abnormal. RBC (test code = 789-8) 3.82 See_Comment L [Automated message] The system which generated this result transmitted reference range: 3.93 - 5.25 10*6/?L. The reference range was not used to interpret this result as normal/abnormal. HGB (test code = 718-7) 9.5 g/dL 11.6-15.0 L HCT (test code = 4544-3) 31.8 % 35.7-45.2 L MCH (test code = 785-6) 24.9 pg 25.9-32.8 L MCV (test code = 787-2) 83.2 fL 80.6-95.5 MCHC (test code = 786-4) 29.9 g/dL 31.6-35.1 L PLT (test code = 777-3) 213 See_Comment [Automated message] The system which generated this result transmitted reference range: 166 - 358 10*3/?L. The reference range was not used to interpret this result as normal/abnormal. MPV (test code = 45533-4) 10.1 fL 9.5-12.9 RDW-CV (test code = 788-0) 16.8 % 12.0-15.5 H RDW-SD (test code = 49641-0) 50.7 fL 39.0-49.9 H NRBC x10^3 (test code = 0849979157) See_Comment [Automated [employer]] The system which generated this result transmitted reference range: 10*3/?L. The reference range was not used to interpret this result as normal/abnormal. NRBC/100 WBC (test code = 6099855911) 0.0 See_Comment [Automated messa ge] The system which generated this result transmitted reference range: 0.0 - 10.0 /100 WBCs. The reference range was not used to interpret this result as normal/abnormal. IPF % (test code = 2433576847) Lab Interpretation (test code = 62989-4) Abnormal [facility] GLUCOSE (AUTOMATED)2023-04-18 01:44:20* Test Item Value Reference Range Interpretation Comme nts POCT GLU (test code = 3648255208) 240 mg/dL 70-110 H Lab Interpretation (test cod e = 72141-4) Abnormal [facility] GLUCOSE (AUTOMATED)2023-04-17 21:44:59* Test Item Value Reference Range Interpretation Comme nts POCT GLU (test code = 5022875880) 221 mg/dL 70-110 H Lab Interpretation (test cod e = 04932-7) [facility] 16:47:28* Test Item Value Reference Range Interpretation Comme nts POCT GLU (test code = 9239491394) 239 mg/dL 70-110 H Lab Interpretation (test cod e = 50580-4) Abnormal [facility] GLUCOSE (AUTOMATED)2023-04-17 12:47:31* Test Item Value Reference Range Interpretation Comme nts POCT GLU (test code = 2121437189) 155 mg/dL 70-110 H Lab Interpretation (test cod e = 30865-3) Abnormal [facility] GLUCOSE (AUTOMATED)2023-04-17 01:13:06* Test Item Value Reference Range Interpretation Comme nts POCT GLU (test code = 4491021530) 214 mg/dL 70-110 H Lab Interpretation (test cod e = 49084-0) Abnormal [facility] GLUCOSE (AUTOMATED)2023-04-16 21:25:35* Test Item Value Reference Range Interpretation Comme nts POCT GLU (test code = 6469223488) 175 mg/dL 70-110 H Lab Interpretation (test cod e = 83957-4) Abnormal [facility] GLUCOSE (AUTOMATED)2023-04-16 17:39:02* Test Item Value Reference Range Interpretation Comme nts POCT GLU (test code = 0292508601) 239 mg/dL 70-110 H Lab Interpretation (test cod e = 63501-6) Abnormal [facility] GLUCOSE (AUTOMATED)2023-04-16 16:52:26* Test Item Value Reference Range Interpretation Comme nts POCT GLU (test code = 3605719480) 228 mg/dL 70-110 H Lab Interpretation (test cod e = 92939-0) Abnormal [facility] GLUCOSE (AUTOMATED)2023-04-16 12:52:50* Test Item Value Reference Range Interpretation Comme nts POCT GLU (test code = 0939295749) 104 mg/dL 70-110 Lab Interpretation (test cod e = 24600-8) Normal [facility] GLUCOSE (AUTOMATED)2023-04-16 12:50:54* Test Item Value Reference Range Interpretation Comme nts POCT GLU (test code = 3264106857) 96 mg/dL 70-110 Lab Interpretation (test cod e = 83187-6) Normal [facility] GLUCOSE (AUTOMATED)2023-04-16 01:47:08* Test Item Value Reference Range Interpretation Comme nts POCT GLU (test code = 6110797145) 223 mg/dL 70-110 H Lab Interpretation (test cod e = 50465-0) Abnormal [facility] GLUCOSE (AUTOMATED)2023-04-15 21:49:51* Test Item Value Reference Range Interpretation Comme nts POCT GLU (test code = 3752222825) 142 mg/dL 70-110 H Lab Interpretation (test cod e = 21862-3) Abnormal [facility] GLUCOSE (AUTOMATED)2023-04-15 16:45:53* Test Item Value Reference Range Interpretation Comme nts POCT GLU (test code = 4905358451) 117 mg/dL 70-110 H Lab Interpretation (test cod e = 16474-5) Abnormal [facility] GLUCOSE (AUTOMATED)2023-04-15 12:50:09* Test Item Value Reference Range Interpretation Comme nts POCT GLU (test code = 5361537509) 109 mg/dL 70-110 Lab Interpretation (test cod e = 55141-1) [id number] Test Item Value Reference Range Interpretation Comme nts TROPONIN I (test code = 2130955906) 0.041 ng/mL <=0.034 H MAJOR (test code = MAJOR) Reference (Normal) Range (defined by the 99th percentile reference limit): <= 0.034 ng/mL Note: Cardiac troponin begins to rise 3-4 hours after the onset of ischemia. Repeat in 4-6 hours if the sample was drawn within 3-4 hours of the onset of the symptom and found normal. Diagnosis of myocardial injury is made with acute changes in cTn concentrations with at least one serial sample above the 99th percentile upper reference limit (URL), taken together with the patient's clinical presentation. Biotin has been reported to cause a negative bias, interpret results relative to patient's use of biotin. Lab Interpretation (test code = 07207-6) [id number] 10:18:40* Test Item Value Reference Range Interpretation Comme nts NT-proBNP (test code = 50516-9) 6020 pg/mL <=125 H MAJOR (test code = MAJOR) Positive: Heart Failure Likely Lab Interpretation (test code = 51925-7) [facility] 10:11:24* Test Item Value Reference Range Interpretation Comme nts MAGNESIUM (test code = 6594792294) 2.0 mg/dL 1.7-2.4 Lab Interpretation (test cod e = 08139-9) [facility] (NA, K, CL, CO2, GLUCOSE, BUN, CREATININE, CA)2023-04-15 10:11:04* Test Item Value Reference Range Interpretation Comme nts NA (test code = 8232239370) 139 mmol/L 135-145 K (test code = 2973629094) 3.5 mmol/L 3.5-5.0 CL (test code = 1638805019) 101 mmol/L 98-108 CO2 TOTAL (test code = 8683963091) 29 mmol/L 23-31 AGAP (test code = 7625810870) 9 2-16 BUN (test code = 2305824375) 22 mg/dL 7-23 GLUCOSE (test code = 6328366053) 65 mg/dL 70-110 L CREATININE (test code = 5820182966) 1.41 mg/dL 0.50-1.04 H CALCIUM (test code = 3395595130) 8.0 mg/dL 8.6-10.6 L eGFR (test code = 0461205668) 36.3 mL/min/1.73m2 MAJOR (test code = MAJOR) Association of Glomerular Filtration Rate (GFR) and Staging of Kidney Disease* + --+ --+ ------+| GFR (mL/min/1.73 m2) ?| With Kidney Damage ?| ?Without Kidney Damage+ --------+ --------+ +| ?>90 ?| ?Stage one ?| ? Normal ?+ ---+ ---+ -------+| ?60-89 ?| ?Stage two ?| ? Decreased GFR ? + --+ --+ ------+| ?30-59 ?| ?Stage three ?| ? Stage three ? + --+ --+ ------+| ?15-29 ?| ?Stage four ? | ? Stage four ?+ ---+ ---+ -------+| ?<15 (or dialysis) ? ?| ?Stage five ? | ? Stage five ?+ ---+ ---+ -------+ *Each stage assumes the associated GFR level has been in effect for at least three months. ?Stages 1 to 5, with or without kidney disease, indicate chronic kidney disease. Notes: Determination of stages one and two (with eGFR >59mL/min/1.73 m2) requires estimation of kidney damage for at least three months as defined by structural or functional abnormalities of the kidney, manifested by either:Pathological abnormalities or Markers of kidney damage (including abnormalities in the composition of the blood or urine or abnormalities in imaging tests). Lab Interpretation (test code = 37812-6) Abnormal [facility] WITH [id number] 09:51:20* Test Item Value Reference Range Interpretation Comme nts WBC (test code = 6690-2) 5.71 See_Comment [Automated [employer]] The system which generated this result transmitted reference range: 4.30 - 11.10 10*3/?L. The reference range was not used to interpret this result as normal/abnormal. RBC (test code = 789-8) 3.08 See_Comment L [Automated [employer]] The system which generated this result transmitted reference range: 3.93 - 5.25 10*6/?L. The reference range was not used to interpret this result as normal/abnormal. HGB (test code = 718-7) 7.8 g/dL 11.6-15.0 L HCT (test code = 4544-3) 26.0 % 35.7-45.2 L MCV (test code = 787-2) 84.4 fL 80.6-95.5 MCH (test code = 785-6) 25.3 pg 25.9-32.8 L MCHC (test code = 786-4) 30.0 g/dL 31.6-35.1 L RDW-SD (test code = 17907-5) 54.1 fL 39.0-49.9 H RDW-CV (test code = 788-0) 17.4 % 12.0-15.5 H PLT (test code = 777-3) 195 See_Comment [Automated messa ge] The system which generated this result transmitted reference range: 166 - 358 10*3/?L. The reference range was not used to interpret this result as normal/abnormal. MPV (test code = 73332-8) 10.2 fL 9.5-12.9 NRBC/100 WBC (test code = 7897467772) 0.0 See_Comment [Automated [employer]] The system which generated this result transmitted reference range: 0.0 - 10.0 /100 WBCs. The reference range was not used to interpret this result as normal/abnormal. NRBC x10^3 (test code = 3622449153) See_Comment [Automated [employer]] The system which generated this result transmitted reference range: 10*3/?L. The reference range was not used to interpret this result as normal/abnormal. GRAN MAT (NEUT) % (test code = 770-8) 64.6 % IMM GRAN % (test code = 3036099143) 0.40 % LYMPH % (test code = 736-9) 17.2 % MONO % (test code = 5905-5) 12.3 % EOS % (test code = 713-8) 5.3 % BASO % (test code = 706-2) 0.2 % GRAN MAT x10^3(ANC) (test code = 9465650797) 3.70 10*3/uL 1.88-7.09 IMM GRAN x10^3 (test code = 2583439061) 0.00-0.06 LYMPH x10^3 (test code = 731-0) 0.98 10*3/uL 1.32-3.29 L MONO x10^3 (test code = 742-7) 0.70 10*3/uL 0.33-0.92 EOS x10^3 (test code = 711-2) 0.30 10*3/uL 0.03-0.39 BASO x10^3 (test code = 704-7) 0.01-0.07 Lab Interpretation (test code = 98866-9) Abnormal [facility] GLUCOSE (AUTOMATED)2023-04-15 01:49:16* Test Item Value Reference Range Interpretation Comme nts POCT GLU (test code = 8798654856) 195 mg/dL 70-110 H Lab Interpretation (test cod e = 56818-8) Abnormal [facility] GLUCOSE (AUTOMATED)2023-04-14 21:39:23* Test Item Value Reference Range Interpretation Comme nts POCT GLU (test code = 5972103631) 159 mg/dL 70-110 H Lab Interpretation (test cod e = 50933-1) Abnormal [facility] GLUCOSE (AUTOMATED)2023-04-14 16:53:23* Test Item Value Reference Range Interpretation Comme nts POCT GLU (test code = 6386613993) 119 mg/dL 70-110 H Lab Interpretation (test cod e = 48231-9) Abnormal [facility] GLUCOSE (AUTOMATED)2023-04-14 12:58:53* Test Item Value Reference Range Interpretation Comme nts POCT GLU (test code = 8385016656) 84 mg/dL 70-110 Lab Interpretation (test cod e = 76341-3) Normal [facility] GLUCOSE (AUTOMATED)2023-04-14 02:29:08* Test Item Value Reference Range Interpretation Comme nts POCT GLU (test code = 7862105418) 204 mg/dL 70-110 H Lab Interpretation (test cod e = 03187-4) Abnormal [facility] GLUCOSE (AUTOMATED)2023-04-13 22:42:06* Test Item Value Reference Range Interpretation Comme nts POCT GLU (test code = 1069462166) 210 mg/dL 70-110 H Lab Interpretation (test cod e = 04827-9) Abnormal [facility] GLUCOSE (AUTOMATED)2023-04-13 17:07:42* Test Item Value Reference Range Interpretation Comme nts POCT GLU (test code = 9733600597) 217 mg/dL 70-110 H Lab Interpretation (test cod e = 79685-0) [facility] 13:23:19* Test Item Value Reference Range Interpretation Comme nts POCT GLU (test code = 5703682415) 178 mg/dL 70-110 H Lab Interpretation (test cod e = 80586-3) [facility] [id number] 00:12:28* Test Item Value Reference Range Interpretation Comme nts TROPONIN I (test code = 4957538231) 0.065 ng/mL <=0.034 H MAJOR (test code = MAJOR) Reference (Normal) Range (defined by the 99th percentile reference limit): <= 0.034 ng/mL Note: Cardiac troponin begins to rise 3-4 hours after the onset of ischemia. Repeat in 4-6 hours if the sample was drawn within 3-4 hours of the onset of the symptom and found normal. Diagnosis of myocardial injury is made with acute changes in cTn concentrations with at least one serial sample above the 99th percentile upper reference limit (URL), taken together with the patient's clinical presentation. Biotin has been reported to cause a negative bias, interpret results relative to patient's use of biotin. Lab Interpretation (test code = 78241-0) [id number] 00:10:06* Test Item Value Reference Range Interpretation Comme nts NT-proBNP (test code = 47694-0) 5780 pg/mL <=125 H MAJOR (test code = MAJOR) Positive: Heart Failure Likely Lab Interpretation (test code = 65604-8) [facility] (65402[facility]2023-04-12 21:48:02* Test Item Value Reference Range Interpretation Comme nts NA (test code = 7734239235) 141 mmol/L 135-145 K (test code = 3462705344) 4.3 mmol/L 3.5-5.0 CL (test code = 4571892463) 104 mmol/L 98-108 CO2 TOTAL (test code = 1274886911) 23 mmol/L 23-31 AGAP (test code = 7668773287) 14 2-16 BUN (test code = 8434698721) 25 mg/dL 7-23 H GLUCOSE (test code = 6517158954) 289 mg/dL 70-110 H CREATININE (test code = 8645331472) 1.30 mg/dL 0.50-1.04 H TOTAL BILI (test code = 2742736249) 0.7 mg/dL 0.1-1.1 CALCIUM (test code = 0041633057) 8.6 mg/dL 8.6-10.6 T PROTEIN (test code = 1540143693) 7.0 g/dL 6.3-8.2 ALBUMIN (test code = 8033578468) 3.6 g/dL 3.5-5.0 ALK PHOS (test code = 8537978732) 49 U/L 34-122 ALTv (test code = 1742-6) 32 U/L 5-35 AST(SGOT) (test code = 2617151461) 34 U/L 13-40 eGFR (test code = 0365133148) 39.8 mL/min/1.73m2 MAJOR (test code = MAJOR) Association of Glomerular Filtration Rate (GFR) and Staging of Kidney Disease* + --+ --+ ------+| GFR (mL/min/1.73 m2) ?| With Kidney Damage ?| ?Without Kidney Damage+ --------+ --------+ +| ?>90 ?| ?Stage one ?| ? Normal ?+ ---+ ---+ -------+| ?60-89 ?| ?Stage two ?| ? Decreased GFR ? + --+ --+ ------+| ?30-59 ?| ?Stage three ?| ? Stage three ? + --+ --+ ------+| ?15-29 ?| ?Stage four ? | ? Stage four ?+ ---+ ---+ -------+| ?<15 (or dialysis) ? ?| ?Stage five ? | ? Stage five ?+ ---+ ---+ -------+ *Each stage assumes the associated GFR level has been in effect for at least three months. ?Stages 1 to 5, with or without kidney disease, indicate chronic kidney disease. Notes: Determination of stages one and two (with eGFR >59mL/min/1.73 m2) requires estimation of kidney damage for at least three months as defined by structural or functional abnormalities of the kidney, manifested by either:Pathological abnormalities or Markers of kidney damage (including abnormalities in the composition of the blood or urine or abnormalities in imaging tests). Lab Interpretation (test code = 31163-9) Abnormal [facility] WITH [id number] 21:34:38* Test Item Value Reference Range Interpretation Comme nts WBC (test code = 6690-2) 13.48 See_Comment H [Automated message] The system which generated this result transmitted reference range: 4.30 - 11.10 10*3/?L. The reference range was not used to interpret this result as normal/abnormal. RBC (test code = 789-8) 3.20 See_Comment L [Automated message] The system which generated this result transmitted reference range: 3.93 - 5.25 10*6/?L. The reference range was not used to interpret this result as normal/abnormal. HGB (test code = 718-7) 8.2 g/dL 11.6-15.0 L HCT (test code = 4544-3) 27.2 % 35.7-45.2 L MCV (test code = 787-2) 85.0 fL 80.6-95.5 MCH (test code = 785-6) 25.6 pg 25.9-32.8 L MCHC (test code = 786-4) 30.1 g/dL 31.6-35.1 L RDW-SD (test code = 67757-5) 53.4 fL 39.0-49.9 H RDW-CV (test code = 788-0) 17.4 % 12.0-15.5 H PLT (test code = 777-3) 235 See_Comment [Automated message] The system which generated this result transmitted reference range: 166 - 358 10*3/?L. The reference range was not used to interpret this result as normal/abnormal. MPV (test code = 88903-2) 10.7 fL 9.5-12.9 NRBC/100 WBC (test code = 5212549567) 0.0 See_Comment [Automated message] The system which generated this result transmitted reference range: 0.0 - 10.0 /100 WBCs. The reference range was not used to interpret this result as normal/abnormal. NRBC x10^3 (test code = 4075165054) See_Comment [Automated message] The system which generated this result transmitted reference range: 10*3/?L. The reference range was not used to interpret this result as normal/abnormal. GRAN MAT (NEUT) % (test code = 770-8) 89.1 % IMM GRAN % (test code = 2533722878) 0.50 % LYMPH % (test code = 736-9) 3.5 % MONO % (test code = 5905-5) 5.5 % EOS % (test code = 713-8) 0.9 % BASO % (test code = 706-2) 0.5 % GRAN MAT x10^3(ANC) (test code = 8490598547) 12.01 10*3/uL 1.88-7.09 H IMM GRAN x10^3 (test code = 9005387735) 0.07 10*3/uL 0.00-0.06 H LYMPH x10^3 (test code = 731-0) 0.47 10*3/uL 1.32-3.29 L MONO x10^3 (test code = 742-7) 0.74 10*3/uL 0.33-0.92 EOS x10^3 (test code = 711-2) 0.12 10*3/uL 0.03-0.39 BASO x10^3 (test code = 704-7) 0.07 10*3/uL 0.01-0.07 Lab Interpretation (test code = 74042-1) Abnormal [facility] GLUCOSE (AUTOMATED)2023-03-28 12:41:03* Test Item Value Reference Range Interpretation Comme nts POCT GLU (test code = 1113498100) 222 mg/dL 70-110 H Lab Interpretation (test cod e = 79657-3) Abnormal [facility] GLUCOSE (AUTOMATED)2023-03-28 12:41:03* Test Item Value Reference Range Interpretation Comme nts POCT GLU (test code = 0050291174) 222 mg/dL 70-110 H Lab Interpretation (test cod e = 28137-6) Abnormal [facility] GLUCOSE (AUTOMATED)2023-03-28 01:18:56* Test Item Value Reference Range Interpretation Comme nts POCT GLU (test code = 0883786555) 254 mg/dL 70-110 H Lab Interpretation (test cod e = 75494-2) Abnormal [facility] GLUCOSE (AUTOMATED)2023-03-28 01:18:56* Test Item Value Reference Range Interpretation Comme nts POCT GLU (test code = 1508436802) 254 mg/dL 70-110 H Lab Interpretation (test cod e = 06129-2) Abnormal [facility] GLUCOSE (AUTOMATED)2023-03-27 21:45:55* Test Item Value Reference Range Interpretation Comme nts POCT GLU (test code = 7209855407) 144 mg/dL 70-110 H Lab Interpretation (test cod e = 69569-7) Abnormal [facility] GLUCOSE (AUTOMATED)2023-03-27 21:45:55* Test Item Value Reference Range Interpretation Comme nts POCT GLU (test code = 1716807502) 144 mg/dL 70-110 H Lab Interpretation (test cod e = 31977-7) Abnormal [facility] GLUCOSE (AUTOMATED)2023-03-27 16:56:58* Test Item Value Reference Range Interpretation Comme nts POCT GLU (test code = 3909815373) 144 mg/dL 70-110 H Lab Interpretation (test cod e = 92215-8) Abnormal [facility] GLUCOSE (AUTOMATED)2023-03-27 16:56:58* Test Item Value Reference Range Interpretation Comme nts POCT GLU (test code = 6449809369) 144 mg/dL 70-110 H Lab Interpretation (test cod e = 18827-4) [facility] 15:26:26* Test Item Value Reference Range Interpretation Comme nts APTT Patient (test code = 3173-2) 70 See_Comment H [Automated messa ge] The system which generated this result transmitted reference range: 26 - 36 Seconds. The reference range was not used to interpret this result as normal/abnormal. Lab Interpretation (test code = 23674-0) [facility] 15:26:26* Test Item Value Reference Range Interpretation Comme nts APTT Patient (test code = 3173-2) 70 See_Comment H [Automated messa ge] The system which generated this result transmitted reference range: 26 - 36 Seconds. The reference range was not used to interpret this result as normal/abnormal. Lab Interpretation (test code = 05733-9) Abnormal [facility] GLUCOSE (AUTOMATED)2023-03-27 13:13:38* Test Item Value Reference Range Interpretation Comme nts POCT GLU (test code = 1542300544) 251 mg/dL 70-110 H Lab Interpretation (test cod e = 47082-6) Abnormal [facility] GLUCOSE (AUTOMATED)2023-03-27 13:13:38* Test Item Value Reference Range Interpretation Comme nts POCT GLU (test code = 1066141885) 251 mg/dL 70-110 H Lab Interpretation (test cod e = 82208-9) Abnormal [facility] GLUCOSE (AUTOMATED)2023-03-27 03:00:44* Test Item Value Reference Range Interpretation Comme nts POCT GLU (test code = 4033879801) 222 mg/dL 70-110 H Lab Interpretation (test cod e = 10541-6) Abnormal [facility] GLUCOSE (AUTOMATED)2023-03-27 03:00:44* Test Item Value Reference Range Interpretation Comme nts POCT GLU (test code = 2305560998) 222 mg/dL 70-110 H Lab Interpretation (test cod e = 15624-1) [facility] 21:49:46* Test Item Value Reference Range Interpretation Comme nts APTT Patient (test code = 3173-2) 38 See_Comment H [Automated messa ge] The system which generated this result transmitted reference range: 26 - 36 Seconds. The reference range was not used to interpret this result as normal/abnormal. Lab Interpretation (test code = 78866-4) [facility]23-[facility]26 21:49:46* Test Item Value Reference Range Interpretation Comme nts APTT Patient (test code = 3173-2) 38 See_Comment H [Automated messa ge] The system which generated this result transmitted reference range: 26 - 36 Seconds. The reference range was not used to interpret this result as normal/abnormal. Lab Interpretation (test code = 88567-5) Abnormal [facility] GLUCOSE (AUTOMATED)2023-03-26 21:48:30* Test Item Value Reference Range Interpretation Comme nts POCT GLU (test code = 8792588842) 118 mg/dL 70-110 H Lab Interpretation (test cod e = 85934-5) Abnormal [facility] [place] [place] [facility]SE [facility]AUTOM[facility])2023-03-26 21:48:30* Test Item Value Reference Range Interpretation Comme nts POCT GLU (test code = 3187250772) 118 mg/dL 70-110 H Lab Interpretation (test cod e = 48821-7) [facility] 17:39:21* Test Item Value Reference Range Interpretation Comme nts POCT GLU (test code = 0642291561) 152 mg/dL 70-110 H Lab Interpretation (test cod e = 24985-6) Abnormal [facility] GLUCOSE (AUTOMATED)2023-03-26 17:39:21* Test Item Value Reference Range Interpretation Comme nts POCT GLU (test code = 6718128517) 152 mg/dL 70-110 H Lab Interpretation (test cod e = 37971-1) Abnormal [facility] GLUCOSE (AUTOMATED)2023-03-26 12:19:26* Test Item Value Reference Range Interpretation Comme nts POCT GLU (test code = 4831757527) 188 mg/dL 70-110 H Lab Interpretation (test cod e = 10436-0) Abnormal [facility] GLUCOSE (AUTOMATED)2023-03-26 12:19:26* Test Item Value Reference Range Interpretation Comme nts POCT GLU (test code = 9550864444) 188 mg/dL 70-110 H Lab Interpretation (test cod e = 62394-9) [facility]:12:58* Test Item Value Reference Range Interpretation Comme nts POCT GLU (test code = 7094844231) 250 mg/dL 70-110 H Lab Interpretation (test cod e = 02628-1) [facility] 03:12:58* Test Item Value Reference Range Interpretation Comme nts POCT GLU (test code = 8195918717) 250 mg/dL 70-110 H Lab Interpretation (test cod e = 70996-4) [facility] [id number] 00:10:00* Test Item Value Reference Range Interpretation Comme nts APTT Patient (test code = 3173-2) 68 See_Comment H [Automated messa ge] The system which generated this result transmitted reference range: 26 - 36 Seconds. The reference range was not used to interpret this result as normal/abnormal. Lab Interpretation (test code = 08516-1) [facility] [id number] 00:10:00* Test Item Value Reference Range Interpretation Comme nts APTT Patient (test code = 3173-2) 68 See_Comment H [Automated messa ge] The system which generated this result transmitted reference range: 26 - 36 Seconds. The reference range was not used to interpret this result as normal/abnormal. Lab Interpretation (test code = 50621-9) Abnormal [facility] GLUCOSE (AUTOMATED)2023-03-25 23:08:26* Test Item Value Reference Range Interpretation Comme nts POCT GLU (test code = 9868000933) 216 mg/dL 70-110 H Lab Interpretation (test cod e = 78546-4) Abnormal [facility] GLUCOSE (AUTOMATED)2023-03-25 23:08:26* Test Item Value Reference Range Interpretation Comme nts POCT GLU (test code = 1583847632) 216 mg/dL 70-110 H Lab Interpretation (test cod e = 93202-8) Abnormal [facility] METABOLIC PANEL (NA, K, CL, CO2, GLUCOSE, BUN, CREATININE, CA)2023-03-25 20:57:17* Test Item Value Reference Range Interpretation Comme nts NA (test code = 0542093749) 138 mmol/L 135-145 K (test code = 9990195346) 3.9 mmol/L 3.5-5.0 CL (test code = 9856222330) 105 mmol/L 98-108 CO2 TOTAL (test code = 6947092813) 28 mmol/L 23-31 AGAP (test code = 3163499750) 5 2-16 BUN (test code = 5461370621) 27 mg/dL 7-23 H GLUCOSE (test code = 2695368637) 156 mg/dL 70-110 H CREATININE (test code = 7126014248) 1.42 mg/dL 0.50-1.04 H CALCIUM (test code = 0805957437) 7.3 mg/dL 8.6-10.6 L eGFR (test code = 6575024021) 36.0 mL/min/1.73m2 MAJOR (test code = MAJOR) Association of Glomerular Filtration Rate (GFR) and Staging of Kidney Disease* + --+ --+ ------+| GFR (mL/min/1.73 m2) ?| With Kidney Damage ?| ?Without Kidney Damage+ --------+ --------+ +| ?>90 ?| ?Stage one ?| ? Normal ?+ ---+ ---+ -------+| ?60-89 ?| ?Stage two ?| ? Decreased GFR ? + --+ --+ ------+| ?30-59 ?| ?Stage three ?| ? Stage three ? + --+ --+ ------+| ?15-29 ?| ?Stage four ? | ? Stage four ?+ ---+ ---+ -------+| ?<15 (or dialysis) ? ?| ?Stage five ? | ? Stage five ?+ ---+ ---+ -------+ *Each stage assumes the associated GFR level has been in effect for at least three months. ?Stages 1 to 5, with or without kidney disease, indicate chronic kidney disease. Notes: Determination of stages one and two (with eGFR >59mL/min/1.73 m2) requires estimation of kidney damage for at least three months as defined by structural or functional abnormalities of the kidney, manifested by either:Pathological abnormalities or Markers of kidney damage (including abnormalities in the composition of the blood or urine or abnormalities in imaging tests). Lab Interpretation (test code = 74224-8) Abnormal [facility] METABOLIC PANEL (NA, K, CL, CO2, GLUCOSE, BUN, CREATININE, CA)2023-03-25 20:57:17* Test Item Value Reference Range Interpretation Comme nts NA (test code = 1263793795) 138 mmol/L 135-145 K (test code = 7857948598) 3.9 mmol/L 3.5-5.0 CL (test code = 8061166839) 105 mmol/L 98-108 CO2 TOTAL (test code = 6007330518) 28 mmol/L 23-31 AGAP (test code = 5376222569) 5 2-16 BUN (test code = 8437159901) 27 mg/dL 7-23 H GLUCOSE (test code = 7156307065) 156 mg/dL 70-110 H CREATININE (test code = 8235992638) 1.42 mg/dL 0.50-1.04 H CALCIUM (test code = 9345998475) 7.3 mg/dL 8.6-10.6 L eGFR (test code = 0808726210) 36.0 mL/min/1.73m2 MAJOR (test code = MAJOR) Association of Glomerular Filtration Rate (GFR) and Staging of Kidney Disease* + --+ --+ ------+| GFR (mL/min/1.73 m2) ?| With Kidney Damage ?| ?Without Kidney Damage+ --------+ --------+ +| ?>90 ?| ?Stage one ?| ? Normal ?+ ---+ ---+ -------+| ?60-89 ?| ?Stage two ?| ? Decreased GFR ? + --+ --+ ------+| ?30-59 ?| ?Stage three ?| ? Stage three ? + --+ --+ ------+| ?15-29 ?| ?Stage four ? | ? Stage four ?+ ---+ ---+ -------+| ?<15 (or dialysis) ? ?| ?Stage five ? | ? Stage five ?+ ---+ ---+ -------+ *Each stage assumes the associated GFR level has been in effect for at least three months. ?Stages 1 to 5, with or without kidney disease, indicate chronic kidney disease. Notes: Determination of stages one and two (with eGFR >59mL/min/1.73 m2) requires estimation of kidney damage for at least three months as defined by structural or functional abnormalities of the kidney, manifested by either:Pathological abnormalities or Markers of kidney damage (including abnormalities in the composition of the blood or urine or abnormalities in imaging tests). Lab Interpretation (test code = 43038-9) Abnormal [facility] GLUCOSE (AUTOMATED)2023-03-25 20:45:01* Test Item Value Reference Range Interpretation Comme [facility] POCT GLU (test code = 1870575076) 177 mg/dL 70-110 H Lab Interpretation (test cod e = 65295-8) [facility] 20:45:01* Test Item Value Reference Range Interpretation Comme nts POCT GLU (test code = 0235350851) 177 mg/dL 70-110 H Lab Interpretation (test cod e = 24233-1) [id number] 20:44:30* Test Item Value Reference Range Interpretation Comme nts WBC (test code = 6690-2) 6.05 See_Comment [Automated messa ge] The system which generated this result transmitted reference range: 4.30 - 11.10 10*3/?L. The reference range was not used to interpret this result as normal/abnormal. RBC (test code = 789-8) 2.85 See_Comment L [Automated messa ge] The system which generated this result transmitted reference range: 3.93 - 5.25 10*6/?L. The reference range was not used to interpret this result as normal/abnormal. HGB (test code = 718-7) 7.4 g/dL 11.6-15.0 L HCT (test code = 4544-3) 24.2 % 35.7-45.2 L MCV (test code = 787-2) 84.9 fL 80.6-95.5 MCH (test code = 785-6) 26.0 pg 25.9-32.8 MCHC (test code = 786-4) 30.6 g/dL 31.6-35.1 L RDW-SD (test code = 00089-8) 51.8 fL 39.0-49.9 H RDW-CV (test code = 788-0) 16.7 % 12.0-15.5 H PLT (test code = 777-3) 165 See_Comment L [Automated messa ge] The system which generated this result transmitted reference range: 166 - 358 10*3/?L. The reference range was not used to interpret this result as normal/abnormal. MPV (test code = 45864-0) 10.2 fL 9.5-12.9 NRBC/100 WBC (test code = 8846312318) 0.0 See_Comment [Automated me ssage] The system which generated this result transmitted reference range: 0.0 - 10.0 /100 WBCs. The reference range was not used to interpret this result as normal/abnormal. NRBC x10^3 (test code = 8014560139) See_Comment [Automated messa ge] The system which generated this result transmitted reference range: 10*3/?L. The reference range was not used to interpret this result as normal/abnormal. GRAN MAT (NEUT) % (test code = 770-8) 67.7 % IMM GRAN % (test code = 2654262895) 2.00 % LYMPH % (test code = 736-9) 14.0 % MONO % (test code = 5905-5) 9.6 % EOS % (test code = 713-8) 6.0 % BASO % (test code = 706-2) 0.7 % GRAN MAT x10^3(ANC) (test code = 4388787886) 4.10 10*3/uL 1.88-7.09 IMM GRAN x10^3 (test code = 5451801588) 0.12 10*3/uL 0.00-0.06 H LYMPH x10^3 (test code = 731-0) 0.85 10*3/uL 1.32-3.29 L MONO x10^3 (test code = 742-7) 0.58 10*3/uL 0.33-0.92 EOS x10^3 (test code = 711-2) 0.36 10*3/uL 0.03-0.39 BASO x10^3 (test code = 704-7) 0.04 10*3/uL 0.01-0.07 Lab Interpretation (test code = 53355-6) Abnormal [facility] WITH [id number] 20:44:30* Test Item Value Reference Range Interpretation Comme nts WBC (test code = 6690-2) 6.05 See_Comment [Automated messa ge] The system which generated this result transmitted reference range: 4.30 - 11.10 10*3/?L. The reference range was not used to interpret this result as normal/abnormal. RBC (test code = 789-8) 2.85 See_Comment L [Automated messa ge] The system which generated this result transmitted reference range: 3.93 - 5.25 10*6/?L. The reference range was not used to interpret this result as normal/abnormal. HGB (test code = 718-7) 7.4 g/dL 11.6-15.0 L HCT (test code = 4544-3) 24.2 % 35.7-45.2 L MCV (test code = 787-2) 84.9 fL 80.6-95.5 MCH (test code = 785-6) 26.0 pg 25.9-32.8 MCHC (test code = 786-4) 30.6 g/dL 31.6-35.1 L RDW-SD (test code = 99606-3) 51.8 fL 39.0-49.9 H RDW-CV (test code = 788-0) 16.7 % 12.0-15.5 H PLT (test code = 777-3) 165 See_Comment L [Automated Spunk[employer] ge] The system which generated this result transmitted reference range: 166 - 358 10*3/?L. The reference range was not used to interpret this result as normal/abnormal. MPV (test code = 62874-5) 10.2 fL 9.5-12.9 NRBC/100 WBC (test code = 5430574051) 0.0 See_Comment [Automated Futon ssage] The system which generated this result transmitted reference range: 0.0 - 10.0 /100 WBCs. The reference range was not used to interpret this result as normal/abnormal. NRBC x10^3 (test code = 8935208898) See_Comment [Automated [employer]a ge] The system which generated this result transmitted reference range: 10*3/?L. The reference range was not used to interpret this result as normal/abnormal. GRAN MAT (NEUT) % (test code = 770-8) 67.7 % IMM GRAN % (test code = 0766719811) 2.00 % LYMPH % (test code = 736-9) 14.0 % MONO % (test code = 5905-5) 9.6 % EOS % (test code = 713-8) 6.0 % BASO % (test code = 706-2) 0.7 % GRAN MAT x10^3(ANC) (test code = 5456268315) 4.10 10*3/uL 1.88-7.09 IMM GRAN x10^3 (test code = 5814137882) 0.12 10*3/uL 0.00-0.06 H LYMPH x10^3 (test code = 731-0) 0.85 10*3/uL 1.32-3.29 L MONO x10^3 (test code = 742-7) 0.58 10*3/uL 0.33-0.92 EOS x10^3 (test code = 711-2) 0.36 10*3/uL 0.03-0.39 BASO x10^3 (test code = 704-7) 0.04 10*3/uL 0.01-0.07 Lab Interpretation (test code = 45729-3) Abnormal [facility] GLUCOSE (AUTOMATED)2023-03-25 15:53:55* Test Item Value Reference Range Interpretation Comme nts POCT GLU (test code = 7770947511) 226 mg/dL 70-110 H Notified Provide r Lab Interpretation (test code = 79573-6) Abnormal [facility] GLUCOSE (AUTOMATED)2023-03-25 15:53:55* Test Item Value Reference Range Interpretation Comme nts POCT GLU (test code = 6599183603) 226 mg/dL 70-110 H Notified Provide r Lab Interpretation (test code = 37863-2) Abnormal [facility] GLUCOSE (AUTOMATED)2023-03-25 12:36:08* Test Item Value Reference Range Interpretation Comme nts POCT GLU (test code = 6870229254) 211 mg/dL 70-110 H Notified Provide r Lab Interpretation (test code = 88889-3) Abnormal [facility] GLUCOSE (AUTOMATED)2023-03-25 12:36:08* Test Item Value Reference Range Interpretation Comme nts POCT GLU (test code = 9821132488) 211 mg/dL 70-110 H Notified Provide r Lab Interpretation (test code = 45072-5) Abnormal [facility] GLUCOSE (AUTOMATED)2023-03-25 01:07:27* Test Item Value Reference Range Interpretation Comme nts POCT GLU (test code = 2306573045) 285 mg/dL 70-110 H Lab Interpretation (test cod e = 13048-2) Abnormal [facility] GLUCOSE (AUTOMATED)2023-03-25 01:07:27* Test Item Value Reference Range Interpretation Comme nts POCT GLU (test code = 9588164049) 285 mg/dL 70-110 H Lab Interpretation (test cod e = 57473-2) [facility] 22:39:37* Test Item Value Reference Range Interpretation Comme nts APTT Patient (test code = 3173-2) 47 See_Comment H [Automated messa ge] The system which generated this result transmitted reference range: 26 - 36 Seconds. The reference range was not used to interpret this result as normal/abnormal. Lab Interpretation (test code = 93242-4) [facility] 22:39:37* Test Item Value Reference Range Interpretation Comme nts APTT Patient (test code = 3173-2) 47 See_Comment H [Automated messa ge] The system which generated this result transmitted reference range: 26 - 36 Seconds. The reference range was not used to interpret this result as normal/abnormal. Lab Interpretation (test code = 85473-7) Abnormal [facility] GLUCOSE (AUTOMATED)2023-03-24 22:35:11* Test Item Value Reference Range Interpretation Comme nts POCT GLU (test code = 5828147274) 277 mg/dL 70-110 H Lab Interpretation (test cod e = 24848-0) Abnormal [facility] GLUCOSE (AUTOMATED)2023-03-24 22:35:11* Test Item Value Reference Range Interpretation Comme nts POCT GLU (test code = 3672534223) 277 mg/dL 70-110 H Lab Interpretation (test cod e = 36379-6) Abnormal [facility] GLUCOSE (AUTOMATED)2023-03-24 20:08:36* Test Item Value Reference Range Interpretation Comme nts POCT GLU (test code = 0209233765) 326 mg/dL 70-110 H Lab Interpretation (test cod e = 81065-0) Abnormal [facility] GLUCOSE (AUTOMATED)2023-03-24 20:08:36* Test Item Value Reference Range Interpretation Comme nts POCT GLU (test code = 6841787119) 326 mg/dL 70-110 H Lab Interpretation (test cod e = 17917-6) [facility] [id number] 18:19:03* Test Item Value Reference Range Interpretation Comme nts PH (test code = 5137319989) 7.45 7.32-7.42 H PCO2 JARRET (test code = 3252941711) 38 See_Comment L [Automated messa ge] The system which generated this result transmitted reference range: 41 - 51 mmHg. The reference range was not used to interpret this result as normal/abnormal. PO2 JARRET (test code = 6828021724) 81 See_Comment HH [Automated messa ge] The system which generated this result transmitted reference range: 25 - 40 mmHg. The reference range was not used to interpret this result as normal/abnormal. HCO3 JARRET (test code = 2100606328) 26 See_Comment [Automated messa ge] The system which generated this result transmitted reference range: 24 - 28 mEq/L. The reference range was not used to interpret this result as normal/abnormal. AC VBE(BEAKER) (test code = 3353820649) 1.6 mEq/L THB JARRET (test code = 7734035034) 10.1 g/dL 12.0-16.0 L %O2HB JARRET (test code = 1993981819) 94.1 % 52.0-63.0 H %COHB JARRET (test code = 5191607127) 1.2 % 0.0-1.5 %METHB JARRET (test code = 0566287279) 0.3 % 0.4-1.5 L VOL%O2 JARRET (test code = 6979334280) 13.5 % 6.0-12.0 H NA (test code = 0775049079) 133 mmol/L 135-145 L K+ (test code = 7894476231) 3.8 mmol/L 3.5-5.0 AC CA IONZ (test code = 0740406733) 4.40 mg/dL 4.50-5.30 L GLUCOSE (test code = 6552391083) 272 mg/dL 70-110 H LACTIC ACID (test code = 6892553727) 1.85 mmol/L 0.50-2.20 Lab Interpretation (test code = 16964-7) [facility] [id number] 18:19:03* Test Item Value Reference Range Interpretation Comme nts PH (test code = 4714524687) 7.45 7.32-7.42 H PCO2 JARRET (test code = 0940651649) 38 See_Comment L [Automated messa ge] The system which generated this result transmitted reference range: 41 - 51 mmHg. The reference range was not used to interpret this result as normal/abnormal. PO2 JARRET (test code = 7070234144) 81 See_Comment HH [Automated messa ge] The system which generated this result transmitted reference range: 25 - 40 mmHg. The reference range was not used to interpret this result as normal/abnormal. HCO3 JARRET (test code = 4672887457) 26 See_Comment [Automated messa ge] The system which generated this result transmitted reference range: 24 - 28 mEq/L. The reference range was not used to interpret this result as normal/abnormal. AC VBE(BEAKER) (test code = 2617612574) 1.6 mEq/L THB JARRET (test code = 3620240366) 10.1 g/dL 12.0-16.0 L %O2HB JARRET (test code = 7404937263) 94.1 % 52.0-63.0 H %COHB JARRET (test code = 4961146175) 1.2 % 0.0-1.5 %METHB JARRET (test code = 9533786142) 0.3 % 0.4-1.5 L VOL%O2 JARRET (test code = 7820492787) 13.5 % 6.0-12.0 H NA (test code = 7922326733) 133 mmol/L 135-145 L K+ (test code = 8015764329) 3.8 mmol/L 3.5-5.0 AC CA IONZ (test code = 4796037324) 4.40 mg/dL 4.50-5.30 L GLUCOSE (test code = 5421746830) 272 mg/dL 70-110 H LACTIC ACID (test code = 0084382043) 1.85 mmol/L 0.50-2.20 Lab Interpretation (test code = 05879-7) Abnormal [facility] GLUCOSE (AUTOMATED)2023-03-24 17:01:07* Test Item Value Reference Range Interpretation Comme nts POCT GLU (test code = 0576569444) 301 mg/dL 70-110 H Lab Interpretation (test cod e = 67276-6) Abnormal [facility] GLUCOSE (AUTOMATED)2023-03-24 17:01:07* Test Item Value Reference Range Interpretation Comme nts POCT GLU (test code = 0062854150) 301 mg/dL 70-110 H Lab Interpretation (test cod e = 25392-8) [facility] Test Item Value Reference Range Interpretation Comme nts APTT Patient (test code = 3173-2) 31 See_Comment [Automated messa ge] The system which generated this result transmitted reference range: 26 - 36 Seconds. The reference range was not used to interpret this result as normal/abnormal. Lab Interpretation (test code = 82656-3) [facility] Test Item Value Reference Range Interpretation Comme nts APTT Patient (test code = 3173-2) 31 See_Comment [Automated messa ge] The system which generated this result transmitted reference range: 26 - 36 Seconds. The reference range was not used to interpret this result as normal/abnormal. Lab Interpretation (test code = 83261-6) [facility] [id number] 15:24:00* Test Item Value Reference Range Interpretation Comme nts ABO & RH (test code = 20) B NEGATIVE IAT (test code = 1185) [facility] [id number] 15:24:00* Test Item Value Reference Range Interpretation Comme nts ABO & RH (test code = 20) B NEGATIVE IAT (test code = 1185) Negative [facility] GLUCOSE (AUTOMATED)2023-03-24 13:42:17* Test Item Value Reference Range Interpretation Comme nts POCT GLU (test code = 0377273344) 256 mg/dL 70-110 H Lab Interpretation (test cod e = 27567-1) Abnormal [facility] GLUCOSE (AUTOMATED)2023-03-24 13:42:17* Test Item Value Reference Range Interpretation Comme [facility] POCT GLU (test code = 7156102324) 256 mg/dL 70-110 H Lab Interpretation (test cod e = 62457-0) Abnormal [facility] METABOLIC PANEL (NA, K, CL, CO2, GLUCOSE, BUN, CREATININE, CA)2023-03-24 12:06:10* Test Item Value Reference Range Interpretation Comme [facility] NA (test code = 8362689252) 136 mmol/L 135-145 K (test code = 4503817015) 4.1 mmol/L 3.5-5.0 CL (test code = 3866452699) 100 mmol/L 98-108 CO2 TOTAL (test code = 5433806754) 27 mmol/L 23-31 AGAP (test code = 9864760865) 9 2-16 BUN (test code = 4281139301) 31 mg/dL 7-23 H GLUCOSE (test code = 6536881859) 195 mg/dL 70-110 H CREATININE (test code = 0354001166) 1.46 mg/dL 0.50-1.04 H CALCIUM (test code = 6475502851) 8.0 mg/dL 8.6-10.6 L eGFR (test code = 5022035563) 34.8 mL/min/1.73m2 MAJOR (test code = MAJOR) Association of Glomerular Filtration Rate (GFR) and Staging of Kidney Disease* + --+ --+ ------+| GFR (mL/min/1.73 m2) ?| With Kidney Damage ?| ?Without Kidney Damage+ --------+ --------+ +| ?>90 ?| ?Stage one ?| ? Normal ?+ ---+ ---+ -------+| ?60-89 ?| ?Stage two ?| ? Decreased GFR ? + --+ --+ ------+| ?30-59 ?| ?Stage three ?| ? Stage three ? + --+ --+ ------+| ?15-29 ?| ?Stage four ? | ? Stage four ?+ ---+ ---+ -------+| ?<15 (or dialysis) ? ?| ?Stage five ? | ? Stage five ?+ ---+ ---+ -------+ *Each stage assumes the associated GFR level has been in effect for at least three months. ?Stages 1 to 5, with or without kidney disease, indicate chronic kidney disease. Notes: Determination of stages one and two (with eGFR >59mL/min/1.73 m2) requires estimation of kidney damage for at least three months as defined by structural or functional abnormalities of the kidney, manifested by either:Pathological abnormalities or Markers of kidney damage (including abnormalities in the composition of the blood or urine or abnormalities in imaging tests). Lab Interpretation (test code = 23044-2) [facility] 12:06:10* Test Item Value Reference Range Interpretation Comme nts MAGNESIUM (test code = 5333373159) 2.0 mg/dL 1.7-2.4 Lab Interpretation (test cod e = 81358-9) [facility] 12:06:10* Test Item Value Reference Range Interpretation Comme nts PHOSPHORUS (test code = 6429257407) 4.3 mg/dL 2.5-5.0 Lab Interpretation (test cod e = 08980-9) [facility] (NA, K, CL, CO2, GLUCOSE, BUN, CREATININE, CA)2023-03-24 12:06:10* Test Item Value Reference Range Interpretation Comme nts NA (test code = 7629516965) 136 mmol/L 135-145 K (test code = 6993784656) 4.1 mmol/L 3.5-5.0 CL (test code = 7163627563) 100 mmol/L 98-108 CO2 TOTAL (test code = 4890467521) 27 mmol/L 23-31 AGAP (test code = 9754709793) 9 2-16 BUN (test code = 4491990170) 31 mg/dL 7-23 H GLUCOSE (test code = 9472248365) 195 mg/dL 70-110 H CREATININE (test code = 1638640598) 1.46 mg/dL 0.50-1.04 H CALCIUM (test code = 2865045695) 8.0 mg/dL 8.6-10.6 L eGFR (test code = 6613030885) 34.8 mL/min/1.73m2 MAJOR (test code = MAJOR) Association of Glomerular Filtration Rate (GFR) and Staging of Kidney Disease* + --+ --+ ------+| GFR (mL/min/1.73 m2) ?| With Kidney Damage ?| ?Without Kidney Damage+ --------+ --------+ +| ?>90 ?| ?Stage one ?| ? Normal ?+ ---+ ---+ -------+| ?60-89 ?| ?Stage two ?| ? Decreased GFR ? + --+ --+ ------+| ?30-59 ?| ?Stage three ?| ? Stage three ? + --+ --+ ------+| ?15-29 ?| ?Stage four ? | ? Stage four ?+ ---+ ---+ -------+| ?<15 (or dialysis) ? ?| ?Stage five ? | ? Stage five ?+ ---+ ---+ -------+ *Each stage assumes the associated GFR level has been in effect for at least three months. ?Stages 1 to 5, with or without kidney disease, indicate chronic kidney disease. Notes: Determination of stages one and two (with eGFR >59mL/min/1.73 m2) requires estimation of kidney damage for at least three months as defined by structural or functional abnormalities of the kidney, manifested by either:Pathological abnormalities or Markers of kidney damage (including abnormalities in the composition of the blood or urine or abnormalities in imaging tests). Lab Interpretation (test code = 78713-3) [facility] 12:06:10* Test Item Value Reference Range Interpretation Comme nts MAGNESIUM (test code = 8108524476) 2.0 mg/dL 1.7-2.4 Lab Interpretation (test cod e = 95712-3) [facility] 12:06:10* Test Item Value Reference Range Interpretation Comme nts PHOSPHORUS (test code = 5173533564) 4.3 mg/dL 2.5-5.0 Lab Interpretation (test cod e = 20241-3) [facility] [id number] 11:06:46* Test Item Value Reference Range Interpretation Comme nts WBC (test code = 6690-2) 7.18 See_Comment [Automated [employer]] The system which generated this result transmitted reference range: 4.30 - 11.10 10*3/?L. The reference range was not used to interpret this result as normal/abnormal. RBC (test code = 789-8) 3.06 See_Comment L [Automated messa ge] The system which generated this result transmitted reference range: 3.93 - 5.25 10*6/?L. The reference range was not used to interpret this result as normal/abnormal. HGB (test code = 718-7) 8.0 g/dL 11.6-15.0 L HCT (test code = 4544-3) 25.9 % 35.7-45.2 L MCV (test code = 787-2) 84.6 fL 80.6-95.5 MCH (test code = 785-6) 26.1 pg 25.9-32.8 MCHC (test code = 786-4) 30.9 g/dL 31.6-35.1 L RDW-SD (test code = 41789-4) 52.1 fL 39.0-49.9 H RDW-CV (test code = 788-0) 17.0 % 12.0-15.5 H PLT (test code = 777-3) 170 See_Comment [Automated messa ge] The system which generated this result transmitted reference range: 166 - 358 10*3/?L. The reference range was not used to interpret this result as normal/abnormal. MPV (test code = 65054-3) 10.3 fL 9.5-12.9 NRBC/100 WBC (test code = 7900218883) 0.0 See_Comment [Automated [employer] ssage] The system which generated this result transmitted reference range: 0.0 - 10.0 /100 WBCs. The reference range was not used to interpret this result as normal/abnormal. NRBC x10^3 (test code = 3102787474) See_Comment [Automated messa ge] The system which generated this result transmitted reference range: 10*3/?L. The reference range was not used to interpret this result as normal/abnormal. GRAN MAT (NEUT) % (test code = 770-8) 71.6 % IMM GRAN % (test code = 0849672744) 0.40 % LYMPH % (test code = 736-9) 12.7 % MONO % (test code = 5905-5) 9.5 % EOS % (test code = 713-8) 5.4 % BASO % (test code = 706-2) 0.4 % GRAN MAT x10^3(ANC) (test code = 6934156321) 5.14 10*3/uL 1.88-7.09 IMM GRAN x10^3 (test code = 9802066595) 0.03 10*3/uL 0.00-0.06 LYMPH x10^3 (test code = 731-0) 0.91 10*3/uL 1.32-3.29 L MONO x10^3 (test code = 742-7) 0.68 10*3/uL 0.33-0.92 EOS x10^3 (test code = 711-2) 0.39 10*3/uL 0.03-0.39 BASO x10^3 (test code = 704-7) 0.03 10*3/uL 0.01-0.07 Lab Interpretation (test code = 33607-1) Abnormal [facility] WITH [id number] 11:06:46* Test Item Value Reference Range Interpretation Comme nts WBC (test code = 6690-2) 7.18 See_Comment [Automated messa ge] The system which generated this result transmitted reference range: 4.30 - 11.10 10*3/?L. The reference range was not used to interpret this result as normal/abnormal. RBC (test code = 789-8) 3.06 See_Comment L [Automated messa ge] The system which generated this result transmitted reference range: 3.93 - 5.25 10*6/?L. The reference range was not used to interpret this result as normal/abnormal. HGB (test code = 718-7) 8.0 g/dL 11.6-15.0 L HCT (test code = 4544-3) 25.9 % 35.7-45.2 L MCV (test code = 787-2) 84.6 fL 80.6-95.5 MCH (test code = 785-6) 26.1 pg 25.9-32.8 MCHC (test code = 786-4) 30.9 g/dL 31.6-35.1 L RDW-SD (test code = 78481-1) 52.1 fL 39.0-49.9 H RDW-CV (test code = 788-0) 17.0 % 12.0-15.5 H PLT (test code = 777-3) 170 See_Comment [Automated messa ge] The system which generated this result transmitted reference range: 166 - 358 10*3/?L. The reference range was not used to interpret this result as normal/abnormal. MPV (test code = 24884-3) 10.3 fL 9.5-12.9 NRBC/100 WBC (test code = 2281914622) 0.0 See_Comment [Automated Fut[employer] ssage] The system which generated this result transmitted reference range: 0.0 - 10.0 /100 WBCs. The reference range was not used to interpret this result as normal/abnormal. NRBC x10^3 (test code = 8844608645) See_Comment [Automated messa ge] The system which generated this result transmitted reference range: 10*3/?L. The reference range was not used to interpret this result as normal/abnormal. GRAN MAT (NEUT) % (test code = 770-8) 71.6 % IMM GRAN % (test code = 1847089773) 0.40 % LYMPH % (test code = 736-9) 12.7 % MONO % (test code = 5905-5) 9.5 % EOS % (test code = 713-8) 5.4 % BASO % (test code = 706-2) 0.4 % GRAN MAT x10^3(ANC) (test code = 5638110066) 5.14 10*3/uL 1.88-7.09 IMM GRAN x10^3 (test code = 6961545450) 0.03 10*3/uL 0.00-0.06 LYMPH x10^3 (test code = 731-0) 0.91 10*3/uL 1.32-3.29 L MONO x10^3 (test code = 742-7) 0.68 10*3/uL 0.33-0.92 EOS x10^3 (test code = 711-2) 0.39 10*3/uL 0.03-0.39 BASO x10^3 (test code = 704-7) 0.03 10*3/uL 0.01-0.07 Lab Interpretation (test code = 17137-5) Abnormal [facility] GLUCOSE (AUTOMATED)2023-03-24 01:36:11* Test Item Value Reference Range Interpretation Comme nts POCT GLU (test code = 3658397691) 299 mg/dL 70-110 H Lab Interpretation (test cod e = 13699-4) Abnormal [facility] GLUCOSE (AUTOMATED)2023-03-24 01:36:11* Test Item Value Reference Range Interpretation Comme nts POCT GLU (test code = 4084286452) 299 mg/dL 70-110 H Lab Interpretation (test cod e = 85076-0) Abnormal [facility] GLUCOSE (AUTOMATED)2023-03-23 22:47:21* Test Item Value Reference Range Interpretation Comme nts POCT GLU (test code = 0381917437) 180 mg/dL 70-110 H Lab Interpretation (test cod e = 47309-2) Abnormal [facility] GLUCOSE (AUTOMATED)2023-03-23 22:47:21* Test Item Value Reference Range Interpretation Comme nts POCT GLU (test code = 3982173831) 180 mg/dL 70-110 H Lab Interpretation (test cod e = 06756-7) Abnormal [facility] GLUCOSE (AUTOMATED)2023-03-23 18:44:18* Test Item Value Reference Range Interpretation Comme nts POCT GLU (test code = 6739246414) 247 mg/dL 70-110 H Lab Interpretation (test cod e = 00241-2) Abnormal [facility] GLUCOSE (AUTOMATED)2023-03-23 18:44:18* Test Item Value Reference Range Interpretation Comme nts POCT GLU (test code = 3720949860) 247 mg/dL 70-110 H Lab Interpretation (test cod e = 59765-2) Abnormal [facility] GLUCOSE (AUTOMATED)2023-03-23 13:05:30* Test Item Value Reference Range Interpretation Comme nts POCT GLU (test code = 3265728150) 192 mg/dL 70-110 H Lab Interpretation (test cod e = 08097-0) Abnormal [facility] GLUCOSE (AUTOMATED)2023-03-23 13:05:30* Test Item Value Reference Range Interpretation Comme nts POCT GLU (test code = 9550151553) 192 mg/dL 70-110 H Lab Interpretation (test cod e = 00200-9) Abnormal [facility] METABOLIC PANEL (NA, K, CL, CO2, GLUCOSE, BUN, CREATININE, CA)2023-03-23 11:20:33* Test Item Value Reference Range Interpretation Comme [facility] NA (test code = 5562755425) 135 mmol/L 135-145 K (test code = 1524114396) 4.0 mmol/L 3.5-5.0 CL (test code = 8936229329) 101 mmol/L 98-108 CO2 TOTAL (test code = 1322024590) 25 mmol/L 23-31 AGAP (test code = 3949371518) 9 2-16 BUN (test code = 6481211970) 28 mg/dL 7-23 H GLUCOSE (test code = 0988943773) 155 mg/dL 70-110 H CREATININE (test code = 0391127710) 1.50 mg/dL 0.50-1.04 H CALCIUM (test code = 2919982118) 8.2 mg/dL 8.6-10.6 L eGFR (test code = 4450566774) 33.8 mL/min/1.73m2 MAJOR (test code = MAJOR) Association of Glomerular Filtration Rate (GFR) and Staging of Kidney Disease* + --+ --+ ------+| GFR (mL/min/1.73 m2) ?| With Kidney Damage ?| ?Without Kidney Damage+ --------+ --------+ +| ?>90 ?| ?Stage one ?| ? Normal ?+ ---+ ---+ -------+| ?60-89 ?| ?Stage two ?| ? Decreased GFR ? + --+ --+ ------+| ?30-59 ?| ?Stage three ?| ? Stage three ? + --+ --+ ------+| ?15-29 ?| ?Stage four ? | ? Stage four ?+ ---+ ---+ -------+| ?<15 (or dialysis) ? ?| ?Stage five ? | ? Stage five ?+ ---+ ---+ -------+ *Each stage assumes the associated GFR level has been in effect for at least three months. ?Stages 1 to 5, with or without kidney disease, indicate chronic kidney disease. Notes: Determination of stages one and two (with eGFR >59mL/min/1.73 m2) requires estimation of kidney damage for at least three months as defined by structural or functional abnormalities of the kidney, manifested by either:Pathological abnormalities or Markers of kidney damage (including abnormalities in the composition of the blood or urine or abnormalities in imaging tests). Lab Interpretation (test code = 04818-4) [facility] 11:20:33* Test Item Value Reference Range Interpretation Comme nts MAGNESIUM (test code = 7253976378) 1.9 mg/dL 1.7-2.4 Lab Interpretation (test cod e = 01022-9) [facility] 11:20:33* Test Item Value Reference Range Interpretation Comme nts PHOSPHORUS (test code = 1426268949) 4.2 mg/dL 2.5-5.0 Lab Interpretation (test cod e = 66421-9) [facility] (NA, K, CL, CO2, GLUCOSE, BUN, CREATININE, CA)2023-03-23 11:20:33* Test Item Value Reference Range Interpretation Comme nts NA (test code = 1522352693) 135 mmol/L 135-145 K (test code = 8476579186) 4.0 mmol/L 3.5-5.0 CL (test code = 6162697745) 101 mmol/L 98-108 CO2 TOTAL (test code = 6068113585) 25 mmol/L 23-31 AGAP (test code = 2059571720) 9 2-16 BUN (test code = 0857192386) 28 mg/dL 7-23 H GLUCOSE (test code = 1497365010) 155 mg/dL 70-110 H CREATININE (test code = 1429970912) 1.50 mg/dL 0.50-1.04 H CALCIUM (test code = 6295403461) 8.2 mg/dL 8.6-10.6 L eGFR (test code = 6233769135) 33.8 mL/min/1.73m2 MAJOR (test code = MAJOR) Association of Glomerular Filtration Rate (GFR) and Staging of Kidney Disease* + --+ --+ ------+| GFR (mL/min/1.73 m2) ?| With Kidney Damage ?| ?Without Kidney Damage+ --------+ --------+ +| ?>90 ?| ?Stage one ?| ? Normal ?+ ---+ ---+ -------+| ?60-89 ?| ?Stage two ?| ? Decreased GFR ? + --+ --+ ------+| ?30-59 ?| ?Stage three ?| ? Stage three ? + --+ --+ ------+| ?15-29 ?| ?Stage four ? | ? Stage four ?+ ---+ ---+ -------+| ?<15 (or dialysis) ? ?| ?Stage five ? | ? Stage five ?+ ---+ ---+ -------+ *Each stage assumes the associated GFR level has been in effect for at least three months. ?Stages 1 to 5, with or without kidney disease, indicate chronic kidney disease. Notes: Determination of stages one and two (with eGFR >59mL/min/1.73 m2) requires estimation of kidney damage for at least three months as defined by structural or functional abnormalities of the kidney, manifested by either:Pathological abnormalities or Markers of kidney damage (including abnormalities in the composition of the blood or urine or abnormalities in imaging tests). Lab Interpretation (test code = 93112-6) [facility] 11:20:33* Test Item Value Reference Range Interpretation Comme nts MAGNESIUM (test code = 1079837021) 1.9 mg/dL 1.7-2.4 Lab Interpretation (test cod e = 78011-5) [facility] 11:20:33* Test Item Value Reference Range Interpretation Comme nts PHOSPHORUS (test code = 6631285129) 4.2 mg/dL 2.5-5.0 Lab Interpretation (test cod e = 01053-1) [id number] 11:06:32* Test Item Value Reference Range Interpretation Comme nts WBC (test code = 6690-2) 7.86 See_Comment [Automated [employer]] The system which generated this result transmitted reference range: 4.30 - 11.10 10*3/?L. The reference range was not used to interpret this result as normal/abnormal. RBC (test code = 789-8) 3.35 See_Comment L [Automated messa ge] The system which generated this result transmitted reference range: 3.93 - 5.25 10*6/?L. The reference range was not used to interpret this result as normal/abnormal. HGB (test code = 718-7) 8.7 g/dL 11.6-15.0 L HCT (test code = 4544-3) 28.2 % 35.7-45.2 L MCV (test code = 787-2) 84.2 fL 80.6-95.5 MCH (test code = 785-6) 26.0 pg 25.9-32.8 MCHC (test code = 786-4) 30.9 g/dL 31.6-35.1 L RDW-SD (test code = 97615-1) 53.4 fL 39.0-49.9 H RDW-CV (test code = 788-0) 17.3 % 12.0-15.5 H PLT (test code = 777-3) 190 See_Comment [Automated messa ge] The system which generated this result transmitted reference range: 166 - 358 10*3/?L. The reference range was not used to interpret this result as normal/abnormal. MPV (test code = 32781-9) 10.3 fL 9.5-12.9 NRBC/100 WBC (test code = 6003432499) 0.0 See_Comment [Automated [employer]] The system which generated this result transmitted reference range: 0.0 - 10.0 /100 WBCs. The reference range was not used to interpret this result as normal/abnormal. NRBC x10^3 (test code = 1912377672) See_Comment [Automated messa ge] The system which generated this result transmitted reference range: 10*3/?L. The reference range was not used to interpret this result as normal/abnormal. GRAN MAT (NEUT) % (test code = 770-8) 74.7 % IMM GRAN % (test code = 1715820866) 0.40 % LYMPH % (test code = 736-9) 10.7 % MONO % (test code = 5905-5) 8.7 % EOS % (test code = 713-8) 5.1 % BASO % (test code = 706-2) 0.4 % GRAN MAT x10^3(ANC) (test code = 2740894569) 5.88 10*3/uL 1.88-7.09 IMM GRAN x10^3 (test code = 2448170458) 0.03 10*3/uL 0.00-0.06 LYMPH x10^3 (test code = 731-0) 0.84 10*3/uL 1.32-3.29 L MONO x10^3 (test code = 742-7) 0.68 10*3/uL 0.33-0.92 EOS x10^3 (test code = 711-2) 0.40 10*3/uL 0.03-0.39 H BASO x10^3 (test code = 704-7) 0.03 10*3/uL 0.01-0.07 Lab Interpretation (test code = 14998-2) Abnormal [facility] WITH [id number] 11:06:32* Test Item Value Reference Range Interpretation Comme nts WBC (test code = 6690-2) 7.86 See_Comment [Automated messa ge] The system which generated this result transmitted reference range: 4.30 - 11.10 10*3/?L. The reference range was not used to interpret this result as normal/abnormal. RBC (test code = 789-8) 3.35 See_Comment L [Automated messa ge] The system which generated this result transmitted reference range: 3.93 - 5.25 10*6/?L. The reference range was not used to interpret this result as normal/abnormal. HGB (test code = 718-7) 8.7 g/dL 11.6-15.0 L HCT (test code = 4544-3) 28.2 % 35.7-45.2 L MCV (test code = 787-2) 84.2 fL 80.6-95.5 MCH (test code = 785-6) 26.0 pg 25.9-32.8 MCHC (test code = 786-4) 30.9 g/dL 31.6-35.1 L RDW-SD (test code = 58607-0) 53.4 fL 39.0-49.9 H RDW-CV (test code = 788-0) 17.3 % 12.0-15.5 H PLT (test code = 777-3) 190 See_Comment [Automated messa ge] The system which generated this result transmitted reference range: 166 - 358 10*3/?L. The reference range was not used to interpret this result as normal/abnormal. MPV (test code = 95171-8) 10.3 fL 9.5-12.9 NRBC/100 WBC (test code = 7810107340) 0.0 See_Comment [Automated me ssage] The system which generated this result transmitted reference range: 0.0 - 10.0 /100 WBCs. The reference range was not used to interpret this result as normal/abnormal. NRBC x10^3 (test code = 3933718064) See_Comment [Automated messa ge] The system which generated this result transmitted reference range: 10*3/?L. The reference range was not used to interpret this result as normal/abnormal. GRAN MAT (NEUT) % (test code = 770-8) 74.7 % IMM GRAN % (test code = 1776913852) 0.40 % LYMPH % (test code = 736-9) 10.7 % MONO % (test code = 5905-5) 8.7 % EOS % (test code = 713-8) 5.1 % BASO % (test code = 706-2) 0.4 % GRAN MAT x10^3(ANC) (test code = 9158482107) 5.88 10*3/uL 1.88-7.09 IMM GRAN x10^3 (test code = 6216640821) 0.03 10*3/uL 0.00-0.06 LYMPH x10^3 (test code = 731-0) 0.84 10*3/uL 1.32-3.29 L MONO x10^3 (test code = 742-7) 0.68 10*3/uL 0.33-0.92 EOS x10^3 (test code = 711-2) 0.40 10*3/uL 0.03-0.39 H BASO x10^3 (test code = 704-7) 0.03 10*3/uL 0.01-0.07 Lab Interpretation (test code = 40470-7) Abnormal [facility] GLUCOSE (AUTOMATED)2023-03-23 01:41:44* Test Item Value Reference Range Interpretation Comme nts POCT GLU (test code = 2632501350) 220 mg/dL 70-110 H Lab Interpretation (test cod e = 29142-3) Abnormal [facility] GLUCOSE (AUTOMATED)2023-03-23 01:41:44* Test Item Value Reference Range Interpretation Comme nts POCT GLU (test code = 4570313754) 220 mg/dL 70-110 H Lab Interpretation (test cod e = 94929-6) Abnormal [facility] GLUCOSE (AUTOMATED)2023-03-22 22:39:32* Test Item Value Reference Range Interpretation Comme nts POCT GLU (test code = 1763489340) 258 mg/dL 70-110 H Notified Provide r Lab Interpretation (test code = 55706-9) Abnormal [facility] GLUCOSE (AUTOMATED)2023-03-22 22:39:32* Test Item Value Reference Range Interpretation Comme nts POCT GLU (test code = 8704084445) 258 mg/dL 70-110 H Notified Provide r Lab Interpretation (test code = 75052-2) Abnormal [facility] GLUCOSE (AUTOMATED)2023-03-22 17:10:13* Test Item Value Reference Range Interpretation Comme nts POCT GLU (test code = 6163056617) 184 mg/dL 70-110 H Lab Interpretation (test cod e = 39484-6) [facility] 17:10:13* Test Item Value Reference Range Interpretation Comme nts POCT GLU (test code = 3784237348) 184 mg/dL 70-110 H Lab Interpretation (test cod e = 14915-5) Abnormal [facility] GLUCOSE (AUTOMATED)2023-03-22 17:10:13* Test Item Value Reference Range Interpretation Comme nts POCT GLU (test code = 4733241307) 184 mg/dL 70-110 H Lab Interpretation (test cod e = 72616-5) Abnormal [facility] GLUCOSE (AUTOMATED)2023-03-22 13:06:14* Test Item Value Reference Range Interpretation Comme nts POCT GLU (test code = 9179346595) 167 mg/dL 70-110 H Lab Interpretation (test cod e = 95130-2) Abnormal [facility] GLUCOSE (AUTOMATED)2023-03-22 13:06:14* Test Item Value Reference Range Interpretation Comme nts POCT GLU (test code = 2221148680) 167 mg/dL 70-110 H Lab Interpretation (test cod e = 42092-3) [facility] [facility]-22 13:06:14* Test Item Value Reference Range Interpretation Comme nts POCT GLU (test code = 3430439245) 167 mg/dL 70-110 H Lab Interpretation (test cod e = 19904-1) Abnormal [facility] GLUCOSE (AUTOMATED)2023-03-22 10:45:15* Test Item Value Reference Range Interpretation Comme nts POCT GLU (test code = 2193922888) 169 mg/dL 70-110 H Lab Interpretation (test cod e = 12497-5) Abnormal [facility] GLUCOSE (AUTOMATED)2023-03-22 10:45:15* Test Item Value Reference Range Interpretation Comme nts POCT GLU (test code = 5284699384) 169 mg/dL 70-110 H Lab Interpretation (test cod e = 71617-8) Abnormal [facility] GLUCOSE (AUTOMATED)2023-03-22 10:45:15* Test Item Value Reference Range Interpretation Comme nts POCT GLU (test code = 3634130811) 169 mg/dL 70-110 H Lab Interpretation (test cod e = 87759-8) Abnormal [facility] [id number] 10:15:51* Test Item Value Reference Range Interpretation Comme nts PHOSPHORUS (test code = 0803391758) 4.9 mg/dL 2.5-5.0 Lab Interpretation (test cod e = 96930-4) Normal [facility] [id number] 10:15:51* Test Item Value Reference Range Interpretation Comme nts PHOSPHORUS (test code = 2480826042) 4.9 mg/dL 2.5-5.0 Lab Interpretation (test cod e = 56925-4) Normal [facility] [id number] 10:15:51* Test Item Value Reference Range Interpretation Comme nts PHOSPHORUS (test code = 5987322003) 4.9 mg/dL 2.5-5.0 Lab Interpretation (test cod e = 58373-3) Normal [facility] Metabolic Panel (NA, K, CL, CO2, GLUCOSE, BUN, CREATININE, CA)2023-03-22 10:15:50* Test Item Value Reference Range Interpretation Comme nts NA (test code = 1985025547) 138 mmol/L 135-145 K (test code = 2959645264) 5.0 mmol/L 3.5-5.0 CL (test code = 5979477961) 102 mmol/L 98-108 CO2 TOTAL (test code = 7880413386) 27 mmol/L 23-31 AGAP (test code = 7972211124) 9 2-16 BUN (test code = 5180288187) 32 mg/dL 7-23 H GLUCOSE (test code = 6356735508) 174 mg/dL 70-110 H CREATININE (test code = 0698092124) 1.40 mg/dL 0.50-1.04 H CALCIUM (test code = 1587478588) 8.2 mg/dL 8.6-10.6 L eGFR (test code = 4373741416) 36.6 mL/min/1.73m2 MAJOR (test code = MAJOR) Association of Glomerular Filtration Rate (GFR) and Staging of Kidney Disease* + --+ --+ ------+| GFR (mL/min/1.73 m2) ?| With Kidney Damage ?| ?Without Kidney Damage+ --------+ --------+ +| ?>90 ?| ?Stage one ?| ? Normal ?+ ---+ ---+ -------+| ?60-89 ?| ?Stage two ?| ? Decreased GFR ? + --+ --+ ------+| ?30-59 ?| ?Stage three ?| ? Stage three ? + --+ --+ ------+| ?15-29 ?| ?Stage four ? | ? Stage four ?+ ---+ ---+ -------+| ?<15 (or dialysis) ? ?| ?Stage five ? | ? Stage five ?+ ---+ ---+ -------+ *Each stage assumes the associated GFR level has been in effect for at least three months. ?Stages 1 to 5, with or without kidney disease, indicate chronic kidney disease. Notes: Determination of stages one and two (with eGFR >59mL/min/1.73 m2) requires estimation of kidney damage for at least three months as defined by structural or functional abnormalities of the kidney, manifested by either:Pathological abnormalities or Markers of kidney damage (including abnormalities in the composition of the blood or urine or abnormalities in imaging tests). Lab Interpretation (test code = 62704-3) [facility] [id number] 10:15:50* Test Item Value Reference Range Interpretation Comme nts MAGNESIUM (test code = 5007353418) 2.1 mg/dL 1.7-2.4 Lab Interpretation (test cod e = 96159-5) [facility] (NA, K, CL, CO2, GLUCOSE, BUN, CREATININE, CA)2023-03-22 10:15:50* Test Item Value Reference Range Interpretation Comme nts NA (test code = 9816107023) 138 mmol/L 135-145 K (test code = 5791034801) 5.0 mmol/L 3.5-5.0 CL (test code = 7039597523) 102 mmol/L 98-108 CO2 TOTAL (test code = 5106613930) 27 mmol/L 23-31 AGAP (test code = 2995145890) 9 2-16 BUN (test code = 8188912777) 32 mg/dL 7-23 H GLUCOSE (test code = 4284721360) 174 mg/dL 70-110 H CREATININE (test code = 2452101140) 1.40 mg/dL 0.50-1.04 H CALCIUM (test code = 6141260095) 8.2 mg/dL 8.6-10.6 L eGFR (test code = 4356459162) 36.6 mL/min/1.73m2 MAJOR (test code = MAJOR) Association of Glomerular Filtration Rate (GFR) and Staging of Kidney Disease* + --+ --+ ------+| GFR (mL/min/1.73 m2) ?| With Kidney Damage ?| ?Without Kidney Damage+ --------+ --------+ +| ?>90 ?| ?Stage one ?| ? Normal ?+ ---+ ---+ -------+| ?60-89 ?| ?Stage two ?| ? Decreased GFR ? + --+ --+ ------+| ?30-59 ?| ?Stage three ?| ? Stage three ? + --+ --+ ------+| ?15-29 ?| ?Stage four ? | ? Stage four ?+ ---+ ---+ -------+| ?<15 (or dialysis) ? ?| ?Stage five ? | ? Stage five ?+ ---+ ---+ -------+ *Each stage assumes the associated GFR level has been in effect for at least three months. ?Stages 1 to 5, with or without kidney disease, indicate chronic kidney disease. Notes: Determination of stages one and two (with eGFR >59mL/min/1.73 m2) requires estimation of kidney damage for at least three months as defined by structural or functional abnormalities of the kidney, manifested by either:Pathological abnormalities or Markers of kidney damage (including abnormalities in the composition of the blood or urine or abnormalities in imaging tests). Lab Interpretation (test code = 90779-0) [facility] Tnnse4376-50-62 10:15:50* Test Item Value Reference Range Interpretation Comme nts MAGNESIUM (test code = 9762886123) 2.1 mg/dL 1.7-2.4 Lab Interpretation (test cod e = 62398-9) [facility] (NA, K, CL, CO2, GLUCOSE, BUN, CREATININE, CA)2023-03-22 10:15:50* Test Item Value Reference Range Interpretation Comme nts NA (test code = 4687369112) 138 mmol/L 135-145 K (test code = 2267459102) 5.0 mmol/L 3.5-5.0 CL (test code = 5517271803) 102 mmol/L 98-108 CO2 TOTAL (test code = 2911371403) 27 mmol/L 23-31 AGAP (test code = 6794128398) 9 2-16 BUN (test code = 4442466227) 32 mg/dL 7-23 H GLUCOSE (test code = 1513999307) 174 mg/dL 70-110 H CREATININE (test code = 5862091584) 1.40 mg/dL 0.50-1.04 H CALCIUM (test code = 4561956114) 8.2 mg/dL 8.6-10.6 L eGFR (test code = 2154137901) 36.6 mL/min/1.73m2 MAJOR (test code = MAJOR) Association of Glomerular Filtration Rate (GFR) and Staging of Kidney Disease* + --+ --+ ------+| GFR (mL/min/1.73 m2) ?| With Kidney Damage ?| ?Without Kidney Damage+ --------+ --------+ +| ?>90 ?| ?Stage one ?| ? Normal ?+ ---+ ---+ -------+| ?60-89 ?| ?Stage two ?| ? Decreased GFR ? + --+ --+ ------+| ?30-59 ?| ?Stage three ?| ? Stage three ? + --+ --+ ------+| ?15-29 ?| ?Stage four ? | ? Stage four ?+ ---+ ---+ -------+| ?<15 (or dialysis) ? ?| ?Stage five ? | ? Stage five ?+ ---+ ---+ -------+ *Each stage assumes the associated GFR level has been in effect for at least three months. ?Stages 1 to 5, with or without kidney disease, indicate chronic kidney disease. Notes: Determination of stages one and two (with eGFR >59mL/min/1.73 m2) requires estimation of kidney damage for at least three months as defined by structural or functional abnormalities of the kidney, manifested by either:Pathological abnormalities or Markers of kidney damage (including abnormalities in the composition of the blood or urine or abnormalities in imaging tests). Lab Interpretation (test code = 71809-7) [facility] Yznji6408-17-15 10:15:50* Test Item Value Reference Range Interpretation Comme nts MAGNESIUM (test code = 8874643043) 2.1 mg/dL 1.7-2.4 Lab Interpretation (test cod e = 11840-8) Normal [facility] with Ausrkpmlfpws6968-40-62 09:47:50* Test Item Value Reference Range Interpretation Comme nts WBC (test code = 6690-2) 10.42 See_Comment [Automated messa ge] The system which generated this result transmitted reference range: 4.30 - 11.10 10*3/?L. The reference range was not used to interpret this result as normal/abnormal. RBC (test code = 789-8) 3.21 See_Comment L [Automated messa ge] The system which generated this result transmitted reference range: 3.93 - 5.25 10*6/?L. The reference range was not used to interpret this result as normal/abnormal. HGB (test code = 718-7) 8.3 g/dL 11.6-15.0 L HCT (test code = 4544-3) 27.0 % 35.7-45.2 L MCV (test code = 787-2) 84.1 fL 80.6-95.5 MCH (test code = 785-6) 25.9 pg 25.9-32.8 MCHC (test code = 786-4) 30.7 g/dL 31.6-35.1 L RDW-SD (test code = 20378-7) 51.5 fL 39.0-49.9 H RDW-CV (test code = 788-0) 16.7 % 12.0-15.5 H PLT (test code = 777-3) 184 See_Comment [Automated Spunkmobilea ge] The system which generated this result transmitted reference range: 166 - 358 10*3/?L. The reference range was not used to interpret this result as normal/abnormal. MPV (test code = 33853-5) 10.1 fL 9.5-12.9 NRBC/100 WBC (test code = 2924262825) 0.0 See_Comment [Automated Futon ssage] The system which generated this result transmitted reference range: 0.0 - 10.0 /100 WBCs. The reference range was not used to interpret this result as normal/abnormal. NRBC x10^3 (test code = 8647315555) See_Comment [Automated Spunkmobilea ge] The system which generated this result transmitted reference range: 10*3/?L. The reference range was not used to interpret this result as normal/abnormal. GRAN MAT (NEUT) % (test code = 770-8) 84.9 % IMM GRAN % (test code = 8399011907) 0.50 % LYMPH % (test code = 736-9) 6.1 % MONO % (test code = 5905-5) 6.1 % EOS % (test code = 713-8) 2.0 % BASO % (test code = 706-2) 0.4 % GRAN MAT x10^3(ANC) (test code = 3727358146) 8.84 10*3/uL 1.88-7.09 H IMM GRAN x10^3 (test code = 7140854400) 0.05 10*3/uL 0.00-0.06 LYMPH x10^3 (test code = 731-0) 0.64 10*3/uL 1.32-3.29 L MONO x10^3 (test code = 742-7) 0.64 10*3/uL 0.33-0.92 EOS x10^3 (test code = 711-2) 0.21 10*3/uL 0.03-0.39 BASO x10^3 (test code = 704-7) 0.04 10*3/uL 0.01-0.07 Lab Interpretation (test code = 90448-6) Abnormal [facility] with Lpvckovblezv5186-45-46 09:47:50* Test Item Value Reference Range Interpretation Comme nts WBC (test code = 6690-2) 10.42 See_Comment [Automated messa ge] The system which generated this result transmitted reference range: 4.30 - 11.10 10*3/?L. The reference range was not used to interpret this result as normal/abnormal. RBC (test code = 789-8) 3.21 See_Comment L [Automated messa ge] The system which generated this result transmitted reference range: 3.93 - 5.25 10*6/?L. The reference range was not used to interpret this result as normal/abnormal. HGB (test code = 718-7) 8.3 g/dL 11.6-15.0 L HCT (test code = 4544-3) 27.0 % 35.7-45.2 L MCV (test code = 787-2) 84.1 fL 80.6-95.5 MCH (test code = 785-6) 25.9 pg 25.9-32.8 MCHC (test code = 786-4) 30.7 g/dL 31.6-35.1 L RDW-SD (test code = 09790-9) 51.5 fL 39.0-49.9 H RDW-CV (test code = 788-0) 16.7 % 12.0-15.5 H PLT (test code = 777-3) 184 See_Comment [Automated Spunkmobilea ge] The system which generated this result transmitted reference range: 166 - 358 10*3/?L. The reference range was not used to interpret this result as normal/abnormal. MPV (test code = 16882-7) 10.1 fL 9.5-12.9 NRBC/100 WBC (test code = 8786699781) 0.0 See_Comment [Automated Futon ssage] The system which generated this result transmitted reference range: 0.0 - 10.0 /100 WBCs. The reference range was not used to interpret this result as normal/abnormal. NRBC x10^3 (test code = 3291538658) See_Comment [Automated Spunkmobilea ge] The system which generated this result transmitted reference range: 10*3/?L. The reference range was not used to interpret this result as normal/abnormal. GRAN MAT (NEUT) % (test code = 770-8) 84.9 % IMM GRAN % (test code = 9457093743) 0.50 % LYMPH % (test code = 736-9) 6.1 % MONO % (test code = 5905-5) 6.1 % EOS % (test code = 713-8) 2.0 % BASO % (test code = 706-2) 0.4 % GRAN MAT x10^3(ANC) (test code = 4381373123) 8.84 10*3/uL 1.88-7.09 H IMM GRAN x10^3 (test code = 7527001375) 0.05 10*3/uL 0.00-0.06 LYMPH x10^3 (test code = 731-0) 0.64 10*3/uL 1.32-3.29 L MONO x10^3 (test code = 742-7) 0.64 10*3/uL 0.33-0.92 EOS x10^3 (test code = 711-2) 0.21 10*3/uL 0.03-0.39 BASO x10^3 (test code = 704-7) 0.04 10*3/uL 0.01-0.07 Lab Interpretation (test code = 08331-0) Abnormal [facility] with Ceilmsrpbhvc7303-38-87 09:47:50* Test Item Value Reference Range Interpretation Comme nts WBC (test code = 6690-2) 10.42 See_Comment [Automated messa ge] The system which generated this result transmitted reference range: 4.30 - 11.10 10*3/?L. The reference range was not used to interpret this result as normal/abnormal. RBC (test code = 789-8) 3.21 See_Comment L [Automated messa ge] The system which generated this result transmitted reference range: 3.93 - 5.25 10*6/?L. The reference range was not used to interpret this result as normal/abnormal. HGB (test code = 718-7) 8.3 g/dL 11.6-15.0 L HCT (test code = 4544-3) 27.0 % 35.7-45.2 L MCV (test code = 787-2) 84.1 fL 80.6-95.5 MCH (test code = 785-6) 25.9 pg 25.9-32.8 MCHC (test code = 786-4) 30.7 g/dL 31.6-35.1 L RDW-SD (test code = 32261-3) 51.5 fL 39.0-49.9 H RDW-CV (test code = 788-0) 16.7 % 12.0-15.5 H PLT (test code = 777-3) 184 See_Comment [Automated messa ge] The system which generated this result transmitted reference range: 166 - 358 10*3/?L. The reference range was not used to interpret this result as normal/abnormal. MPV (test code = 99505-0) 10.1 fL 9.5-12.9 NRBC/100 WBC (test code = 6161687312) 0.0 See_Comment [Automated Futon ssage] The system which generated this result transmitted reference range: 0.0 - 10.0 /100 WBCs. The reference range was not used to interpret this result as normal/abnormal. NRBC x10^3 (test code = 2421619339) See_Comment [Automated messa ge] The system which generated this result transmitted reference range: 10*3/?L. The reference range was not used to interpret this result as normal/abnormal. GRAN MAT (NEUT) % (test code = 770-8) 84.9 % IMM GRAN % (test code = 3731016020) 0.50 % LYMPH % (test code = 736-9) 6.1 % MONO % (test code = 5905-5) 6.1 % EOS % (test code = 713-8) 2.0 % BASO % (test code = 706-2) 0.4 % GRAN MAT x10^3(ANC) (test code = 3207103019) 8.84 10*3/uL 1.88-7.09 H IMM GRAN x10^3 (test code = 5014838471) 0.05 10*3/uL 0.00-0.06 LYMPH x10^3 (test code = 731-0) 0.64 10*3/uL 1.32-3.29 L MONO x10^3 (test code = 742-7) 0.64 10*3/uL 0.33-0.92 EOS x10^3 (test code = 711-2) 0.21 10*3/uL 0.03-0.39 BASO x10^3 (test code = 704-7) 0.04 10*3/uL 0.01-0.07 Lab Interpretation (test code = 82567-5) Abnormal [facility] GLUCOSE (AUTOMATED)2023-03-22 09:30:13* Test Item Value Reference Range Interpretation Comme nts POCT GLU (test code = 8018994644) 183 mg/dL 70-110 H Lab Interpretation (test cod e = 55050-4) Abnormal [facility] GLUCOSE (AUTOMATED)2023-03-22 09:30:13* Test Item Value Reference Range Interpretation Comme nts POCT GLU (test code = 0901329069) 183 mg/dL 70-110 H Lab Interpretation (test cod e = 50503-4) Abnormal [facility] GLUCOSE (AUTOMATED)2023-03-22 09:30:13* Test Item Value Reference Range Interpretation Comme [facility] POCT GLU (test code = 4295968394) 183 mg/dL 70-110 H Lab Interpretation (test cod e = 88623-9) [facility] [id number] 07:16:53* Test Item Value Reference Range Interpretation Comme nts PH (test code = 7234115347) 7.30 7.32-7.42 L PCO2 JARRET (test code = 4138931562) 50 See_Comment [Automated messa ge] The system which generated this result transmitted reference range: 41 - 51 mmHg. The reference range was not used to interpret this result as normal/abnormal. PO2 JARRET (test code = 9688777746) 39 See_Comment [Automated messa ge] The system which generated this result transmitted reference range: 25 - 40 mmHg. The reference range was not used to interpret this result as normal/abnormal. HCO3 JARRET (test code = 3713015327) 24 See_Comment [Automated messa ge] The system which generated this result transmitted reference range: 24 - 28 mEq/L. The reference range was not used to interpret this result as normal/abnormal. AC VBE(BEAKER) (test code = 0348637561) -2.3 mEq/L THB JARRET (test code = 7201138632) 9.6 g/dL 12.0-16.0 L %O2HB JARRET (test code = 2375845523) 69.7 % 52.0-63.0 H %COHB JARRET (test code = 4580566082) 1.2 % 0.0-1.5 %METHB JARRET (test code = 7075157625) 0.3 % 0.4-1.5 L VOL%O2 JARRET (test code = 7239075307) 9.4 % 6.0-12.0 NA (test code = 3301110067) 126 mmol/L 135-145 L K+ (test code = 9557911170) 5.0 mmol/L 3.5-5.0 AC CA IONZ (test code = 6997365911) 4.40 mg/dL 4.50-5.30 L GLUCOSE (test code = 5679361133) 195 mg/dL 70-110 H LACTIC ACID (test code = 4748272535) 1.96 mmol/L 0.50-2.20 Lab Interpretation (test code = 42591-0) [facility] [id number] 07:16:53* Test Item Value Reference Range Interpretation Comme nts PH (test code = 6621156228) 7.30 7.32-7.42 L PCO2 JARRET (test code = 2797652943) 50 See_Comment [Automated messa ge] The system which generated this result transmitted reference range: 41 - 51 mmHg. The reference range was not used to interpret this result as normal/abnormal. PO2 JARRET (test code = 8778508837) 39 See_Comment [Automated messa ge] The system which generated this result transmitted reference range: 25 - 40 mmHg. The reference range was not used to interpret this result as normal/abnormal. HCO3 JARRET (test code = 8141190650) 24 See_Comment [Automated messa ge] The system which generated this result transmitted reference range: 24 - 28 mEq/L. The reference range was not used to interpret this result as normal/abnormal. AC VBE(BEAKER) (test code = 5123647913) -2.3 mEq/L THB JARRET (test code = 7267990570) 9.6 g/dL 12.0-16.0 L %O2HB JARRET (test code = 1267491099) 69.7 % 52.0-63.0 H %COHB JARRET (test code = 7101151320) 1.2 % 0.0-1.5 %METHB JARRET (test code = 6282977735) 0.3 % 0.4-1.5 L VOL%O2 JARRET (test code = 3471633280) 9.4 % 6.0-12.0 NA (test code = 9869487984) 126 mmol/L 135-145 L K+ (test code = 2586457679) 5.0 mmol/L 3.5-5.0 AC CA IONZ (test code = 7681638369) 4.40 mg/dL 4.50-5.30 L GLUCOSE (test code = 6190316678) 195 mg/dL 70-110 H LACTIC ACID (test code = 7854903535) 1.96 mmol/L 0.50-2.20 Lab Interpretation (test code = 63562-0) [facility] [id number] 07:16:53* Test Item Value Reference Range Interpretation Comme nts PH (test code = 7874921186) 7.30 7.32-7.42 L PCO2 JARRET (test code = 0361877850) 50 See_Comment [Automated messa ge] The system which generated this result transmitted reference range: 41 - 51 mmHg. The reference range was not used to interpret this result as normal/abnormal. PO2 JARRET (test code = 6504142319) 39 See_Comment [Automated messa ge] The system which generated this result transmitted reference range: 25 - 40 mmHg. The reference range was not used to interpret this result as normal/abnormal. HCO3 JARRET (test code = 6009286330) 24 See_Comment [Automated messa ge] The system which generated this result transmitted reference range: 24 - 28 mEq/L. The reference range was not used to interpret this result as normal/abnormal. AC VBE(BEAKER) (test code = 6498999099) -2.3 mEq/L THB JARRET (test code = 9047110015) 9.6 g/dL 12.0-16.0 L %O2HB JARRET (test code = 6575442607) 69.7 % 52.0-63.0 H %COHB JARRET (test code = 6825730917) 1.2 % 0.0-1.5 %METHB JARRET (test code = 1434523876) 0.3 % 0.4-1.5 L VOL%O2 JARRET (test code = 4579001637) 9.4 % 6.0-12.0 NA (test code = 9493140958) 126 mmol/L 135-145 L K+ (test code = 6166246148) 5.0 mmol/L 3.5-5.0 AC CA IONZ (test code = 7543715039) 4.40 mg/dL 4.50-5.30 L GLUCOSE (test code = 8948966574) 195 mg/dL 70-110 H LACTIC ACID (test code = 5559698254) 1.96 mmol/L 0.50-2.20 Lab Interpretation (test code = 40470-3) Abnormal [facility] GLUCOSE (AUTOMATED)2023-03-22 05:09:14* Test Item Value Reference Range Interpretation Comme [facility] POCT GLU (test code = 5436543220) 244 mg/dL 70-110 H Lab Interpretation (test cod e = 96682-8) Abnormal [facility] GLUCOSE (AUTOMATED)2023-03-22 05:09:14* Test Item Value Reference Range Interpretation Comme [facility] POCT GLU (test code = 1640511903) 244 mg/dL 70-110 H Lab Interpretation (test cod e = 47117-8) Abnormal [facility] GLUCOSE (AUTOMATED)2023-03-22 05:09:14* Test Item Value Reference Range Interpretation Comme [facility] POCT GLU (test code = 5329426669) 244 mg/dL 70-110 H Lab Interpretation (test cod e = 99150-0) [facility]IC [id number] 03:14:53* Test Item Value Reference Range Interpretation Comme nts PH (test code = 6875844312) 7.32 7.32-7.42 PCO2 JARRET (test code = 5324181966) 55 See_Comment H [Automated messa ge] The system which generated this result transmitted reference range: 41 - 51 mmHg. The reference range was not used to interpret this result as normal/abnormal. PO2 JARRET (test code = 3883977106) 48 See_Comment H [Automated messa ge] The system which generated this result transmitted reference range: 25 - 40 mmHg. The reference range was not used to interpret this result as normal/abnormal. HCO3 JARRET (test code = 9355559593) 27 See_Comment [Automated messa ge] The system which generated this result transmitted reference range: 24 - 28 mEq/L. The reference range was not used to interpret this result as normal/abnormal. AC VBE(BEAKER) (test code = 7454394178) 0.6 mEq/L THB JARRET (test code = 3760104986) 10.9 g/dL 12.0-16.0 L %O2HB JARRET (test code = 3635476019) 80.9 % 52.0-63.0 H %COHB JARRET (test code = 6511529606) 1.4 % 0.0-1.5 %METHB JARRET (test code = 0152082509) 0.3 % 0.4-1.5 L VOL%O2 JARRET (test code = 7173252278) 12.4 % 6.0-12.0 H NA (test code = 1663144472) 131 mmol/L 135-145 L K+ (test code = 3539000455) 4.8 mmol/L 3.5-5.0 AC CA IONZ (test code = 5252579801) 4.40 mg/dL 4.50-5.30 L GLUCOSE (test code = 6998251630) 257 mg/dL 70-110 H LACTIC ACID (test code = 4087714957) 2.26 mmol/L 0.50-2.20 H Lab Interpretation (test code = 51885-6) [facility] [id number] 03:14:53* Test Item Value Reference Range Interpretation Comme nts PH (test code = 3077869213) 7.32 7.32-7.42 PCO2 JARRET (test code = 7820161998) 55 See_Comment H [Automated messa ge] The system which generated this result transmitted reference range: 41 - 51 mmHg. The reference range was not used to interpret this result as normal/abnormal. PO2 JARRET (test code = 3402458488) 48 See_Comment H [Automated messa ge] The system which generated this result transmitted reference range: 25 - 40 mmHg. The reference range was not used to interpret this result as normal/abnormal. HCO3 JARRET (test code = 4435276125) 27 See_Comment [Automated messa ge] The system which generated this result transmitted reference range: 24 - 28 mEq/L. The reference range was not used to interpret this result as normal/abnormal. AC VBE(BEAKER) (test code = 2764726762) 0.6 mEq/L THB JARRET (test code = 9104103073) 10.9 g/dL 12.0-16.0 L %O2HB JARRET (test code = 9219756485) 80.9 % 52.0-63.0 H %COHB JARRET (test code = 0896941744) 1.4 % 0.0-1.5 %METHB JARRET (test code = 8441732621) 0.3 % 0.4-1.5 L VOL%O2 JARRET (test code = 7851619025) 12.4 % 6.0-12.0 H NA (test code = 9370852024) 131 mmol/L 135-145 L K+ (test code = 9967140423) 4.8 mmol/L 3.5-5.0 AC CA IONZ (test code = 9375264091) 4.40 mg/dL 4.50-5.30 L GLUCOSE (test code = 4824401962) 257 mg/dL 70-110 H LACTIC ACID (test code = 8344288662) 2.26 mmol/L 0.50-2.20 H Lab Interpretation (test code = 86204-0) [facility] [id number] 03:14:53* Test Item Value Reference Range Interpretation Comme nts PH (test code = 0884481361) 7.32 7.32-7.42 PCO2 JARRET (test code = 0256554209) 55 See_Comment H [Automated messa ge] The system which generated this result transmitted reference range: 41 - 51 mmHg. The reference range was not used to interpret this result as normal/abnormal. PO2 JARRET (test code = 6541393098) 48 See_Comment H [Automated messa ge] The system which generated this result transmitted reference range: 25 - 40 mmHg. The reference range was not used to interpret this result as normal/abnormal. HCO3 JARRET (test code = 3118197902) 27 See_Comment [Automated messa ge] The system which generated this result transmitted reference range: 24 - 28 mEq/L. The reference range was not used to interpret this result as normal/abnormal. AC VBE(BEAKER) (test code = 1741258677) 0.6 mEq/L THB JARRET (test code = 5774759295) 10.9 g/dL 12.0-16.0 L %O2HB JARRET (test code = 4198790788) 80.9 % 52.0-63.0 H %COHB JARRET (test code = 8007986177) 1.4 % 0.0-1.5 %METHB JARRET (test code = 1983339167) 0.3 % 0.4-1.5 L VOL%O2 JARRET (test code = 9416132340) 12.4 % 6.0-12.0 H NA (test code = 8813165598) 131 mmol/L 135-145 L K+ (test code = 9912866684) 4.8 mmol/L 3.5-5.0 AC CA IONZ (test code = 6028063026) 4.40 mg/dL 4.50-5.30 L GLUCOSE (test code = 2995467978) 257 mg/dL 70-110 H LACTIC ACID (test code = 3648505528) 2.26 mmol/L 0.50-2.20 H Lab Interpretation (test code = 32079-3) [facility] [id number] 00:38:05* Test Item Value Reference Range Interpretation Comme nts PH (test code = 2) 7.34 7.35-7.45 L PCO2 (test code = 6812039885) 52 See_Comment H [Automated messa ge] The system which generated this result transmitted reference range: 35 - 45 mmHg. The reference range was not used to interpret this result as normal/abnormal. PO2 (test code = 2397233620) 131 See_Comment H [Automated messa ge] The system which generated this result transmitted reference range: 80 - 100 mmHg. The reference range was not used to interpret this result as normal/abnormal. HCO3 (test code = 8911827714) 27 See_Comment H [Automated messa ge] The system which generated this result transmitted reference range: 22 - 26 mEq/L. The reference range was not used to interpret this result as normal/abnormal. BE (test code = 6581053171) 0.8 See_Comment [Automated messa ge] The system which generated this result transmitted reference range: -3.0 - 3.0 mEq/L. The reference range was not used to interpret this result as normal/abnormal. THB (test code = 9450887658) 13.3 g/dL 12.0-16.0 %O2HB (test code = 9957389372) 97.3 % 94.0-99.0 %COHB ART (test code = 7153751860) 0.4 % 0.0-1.5 %METHB ART (test code = 2562632699) 0.3 % 0.4-1.5 L VOL%O2 ART (test code = 2736650746) 18.4 % 15.0-23.0 NA (test code = 2746461101) 135 mmol/L 135-145 K+ (test code = 4018423447) 4.9 mmol/L 3.5-5.0 AC CA IONZ (test code = 1988428876) 4.50 mg/dL 4.50-5.30 GLUCOSE (test code = 0628337212) 285 mg/dL 70-110 H LACTIC ACID (test code = 7472335483) 1.77 mmol/L 0.50-2.20 QUES Lab Interpretation (test code = 76109-1) [facility] Lactic [id number] 00:38:05* Test Item Value Reference Range Interpretation Comme nts PH (test code = 2) 7.34 7.35-7.45 L PCO2 (test code = 3348475424) 52 See_Comment H [Automated messa ge] The system which generated this result transmitted reference range: 35 - 45 mmHg. The reference range was not used to interpret this result as normal/abnormal. PO2 (test code = 6745493917) 131 See_Comment H [Automated messa ge] The system which generated this result transmitted reference range: 80 - 100 mmHg. The reference range was not used to interpret this result as normal/abnormal. HCO3 (test code = 2370581704) 27 See_Comment H [Automated messa ge] The system which generated this result transmitted reference range: 22 - 26 mEq/L. The reference range was not used to interpret this result as normal/abnormal. BE (test code = 9825619146) 0.8 See_Comment [Automated messa ge] The system which generated this result transmitted reference range: -3.0 - 3.0 mEq/L. The reference range was not used to interpret this result as normal/abnormal. THB (test code = 4695163700) 13.3 g/dL 12.0-16.0 %O2HB (test code = 2500531191) 97.3 % 94.0-99.0 %COHB ART (test code = 4391263654) 0.4 % 0.0-1.5 %METHB ART (test code = 6581410893) 0.3 % 0.4-1.5 L VOL%O2 ART (test code = 9674284935) 18.4 % 15.0-23.0 NA (test code = 5029126740) 135 mmol/L 135-145 K+ (test code = 0324306223) 4.9 mmol/L 3.5-5.0 AC CA IONZ (test code = 2609025712) 4.50 mg/dL 4.50-5.30 GLUCOSE (test code = 1046293296) 285 mg/dL 70-110 H LACTIC ACID (test code = 4875058213) 1.77 mmol/L 0.50-2.20 QUES Lab Interpretation (test code = 59881-7) [facility] Lactic [id number] 00:38:05* Test Item Value Reference Range Interpretation Comme nts PH (test code = 2) 7.34 7.35-7.45 L PCO2 (test code = 6777314013) 52 See_Comment H [Automated messa ge] The system which generated this result transmitted reference range: 35 - 45 mmHg. The reference range was not used to interpret this result as normal/abnormal. PO2 (test code = 4948468636) 131 See_Comment H [Automated messa ge] The system which generated this result transmitted reference range: 80 - 100 mmHg. The reference range was not used to interpret this result as normal/abnormal. HCO3 (test code = 4438409857) 27 See_Comment H [Automated messa ge] The system which generated this result transmitted reference range: 22 - 26 mEq/L. The reference range was not used to interpret this result as normal/abnormal. BE (test code = 1043956725) 0.8 See_Comment [Automated messa ge] The system which generated this result transmitted reference range: -3.0 - 3.0 mEq/L. The reference range was not used to interpret this result as normal/abnormal. THB (test code = 9370147906) 13.3 g/dL 12.0-16.0 %O2HB (test code = 0615138165) 97.3 % 94.0-99.0 %COHB ART (test code = 0580626765) 0.4 % 0.0-1.5 %METHB ART (test code = 2285093110) 0.3 % 0.4-1.5 L VOL%O2 ART (test code = 2276185033) 18.4 % 15.0-23.0 NA (test code = 3884858684) 135 mmol/L 135-145 K+ (test code = 7368216419) 4.9 mmol/L 3.5-5.0 AC CA IONZ (test code = 4321600494) 4.50 mg/dL 4.50-5.30 GLUCOSE (test code = 9543826176) 285 mg/dL 70-110 H LACTIC ACID (test code = 2576745222) 1.77 mmol/L 0.50-2.20 QUES Lab Interpretation (test code = 09894-4) Abnormal [facility] METABOLIC PANEL (NA, K, CL, CO2, GLUCOSE, BUN, CREATININE, CA)2023-03-21 22:04:31* Test Item Value Reference Range Interpretation Comme nts NA (test code = 9570726096) 137 mmol/L 135-145 K (test code = 5920561787) 5.1 mmol/L 3.5-5.0 H CL (test code = 4151237438) 103 mmol/L 98-108 CO2 TOTAL (test code = 4877742458) 25 mmol/L 23-31 AGAP (test code = 2023128979) 9 2-16 BUN (test code = 7083765907) 31 mg/dL 7-23 H GLUCOSE (test code = 1949812681) 337 mg/dL 70-110 H CREATININE (test code = 4875967595) 1.40 mg/dL 0.50-1.04 H CALCIUM (test code = 7871952212) 8.6 mg/dL 8.6-10.6 eGFR (test code = 6602013177) 36.6 mL/min/1.73m2 MAJOR (test code = MAJOR) Association of Glomerular Filtration Rate (GFR) and Staging of Kidney Disease* + --+ --+ ------+| GFR (mL/min/1.73 m2) ?| With Kidney Damage ?| ?Without Kidney Damage+ --------+ --------+ +| ?>90 ?| ?Stage one ?| ? Normal ?+ ---+ ---+ -------+| ?60-89 ?| ?Stage two ?| ? Decreased GFR ? + --+ --+ ------+| ?30-59 ?| ?Stage three ?| ? Stage three ? + --+ --+ ------+| ?15-29 ?| ?Stage four ? | ? Stage four ?+ ---+ ---+ -------+| ?<15 (or dialysis) ? ?| ?Stage five ? | ? Stage five ?+ ---+ ---+ -------+ *Each stage assumes the associated GFR level has been in effect for at least three months. ?Stages 1 to 5, with or without kidney disease, indicate chronic kidney disease. Notes: Determination of stages one and two (with eGFR >59mL/min/1.73 m2) requires estimation of kidney damage for at least three months as defined by structural or functional abnormalities of the kidney, manifested by either:Pathological abnormalities or Markers of kidney damage (including abnormalities in the composition of the blood or urine or abnormalities in imaging tests). Lab Interpretation (test code = 20225-5) [facility]* Test Item Value Reference Range Interpretation Comme nts MAGNESIUM (test code = 2020750601) 2.2 mg/dL 1.7-2.4 Lab Interpretation (test cod e = 13379-4) [facility] 22:04:31* Test Item Value Reference Range Interpretation Comme nts PHOSPHORUS (test code = 3108100234) 5.4 mg/dL 2.5-5.0 H Lab Interpretation (test cod e = 52646-9) [facility] (NA, K, CL, CO2, GLUCOSE, BUN, CREATININE, CA)2023-03-21 22:04:31* Test Item Value Reference Range Interpretation Comme nts NA (test code = 4925808414) 137 mmol/L 135-145 K (test code = 1479665432) 5.1 mmol/L 3.5-5.0 H CL (test code = 1807748457) 103 mmol/L 98-108 CO2 TOTAL (test code = 8747546926) 25 mmol/L 23-31 AGAP (test code = 9221050568) 9 2-16 BUN (test code = 9332022073) 31 mg/dL 7-23 H GLUCOSE (test code = 6607817155) 337 mg/dL 70-110 H CREATININE (test code = 8530799764) 1.40 mg/dL 0.50-1.04 H CALCIUM (test code = 9625880493) 8.6 mg/dL 8.6-10.6 eGFR (test code = 0622799944) 36.6 mL/min/1.73m2 MAJOR (test code = MAJOR) Association of Glomerular Filtration Rate (GFR) and Staging of Kidney Disease* + --+ --+ ------+| GFR (mL/min/1.73 m2) ?| With Kidney Damage ?| ?Without Kidney Damage+ --------+ --------+ +| ?>90 ?| ?Stage one ?| ? Normal ?+ ---+ ---+ -------+| ?60-89 ?| ?Stage two ?| ? Decreased GFR ? + --+ --+ ------+| ?30-59 ?| ?Stage three ?| ? Stage three ? + --+ --+ ------+| ?15-29 ?| ?Stage four ? | ? Stage four ?+ ---+ ---+ -------+| ?<15 (or dialysis) ? ?| ?Stage five ? | ? Stage five ?+ ---+ ---+ -------+ *Each stage assumes the associated GFR level has been in effect for at least three months. ?Stages 1 to 5, with or without kidney disease, indicate chronic kidney disease. Notes: Determination of stages one and two (with eGFR >59mL/min/1.73 m2) requires estimation of kidney damage for at least three months as defined by structural or functional abnormalities of the kidney, manifested by either:Pathological abnormalities or Markers of kidney damage (including abnormalities in the composition of the blood or urine or abnormalities in imaging tests). Lab Interpretation (test code = 57200-0) [facility] 22:04:31* Test Item Value Reference Range Interpretation Comme nts MAGNESIUM (test code = 2360583390) 2.2 mg/dL 1.7-2.4 Lab Interpretation (test cod e = 41194-8) [facility] 22:04:31* Test Item Value Reference Range Interpretation Comme nts PHOSPHORUS (test code = 8037274985) 5.4 mg/dL 2.5-5.0 H Lab Interpretation (test cod e = 17426-5) [facility] (NA, K, CL, CO2, GLUCOSE, BUN, CREATININE, CA)2023-03-21 22:04:31* Test Item Value Reference Range Interpretation Comme nts NA (test code = 6686070361) 137 mmol/L 135-145 K (test code = 2087320488) 5.1 mmol/L 3.5-5.0 H CL (test code = 4304889594) 103 mmol/L 98-108 CO2 TOTAL (test code = 3900302580) 25 mmol/L 23-31 AGAP (test code = 2147249892) 9 2-16 BUN (test code = 4817092113) 31 mg/dL 7-23 H GLUCOSE (test code = 1232781373) 337 mg/dL 70-110 H CREATININE (test code = 1437424447) 1.40 mg/dL 0.50-1.04 H CALCIUM (test code = 9115558823) 8.6 mg/dL 8.6-10.6 eGFR (test code = 7687678487) 36.6 mL/min/1.73m2 MAJOR (test code = MAJOR) Association of Glomerular Filtration Rate (GFR) and Staging of Kidney Disease* + --+ --+ ------+| GFR (mL/min/1.73 m2) ?| With Kidney Damage ?| ?Without Kidney Damage+ --------+ --------+ +| ?>90 ?| ?Stage one ?| ? Normal ?+ ---+ ---+ -------+| ?60-89 ?| ?Stage two ?| ? Decreased GFR ? + --+ --+ ------+| ?30-59 ?| ?Stage three ?| ? Stage three ? + --+ --+ ------+| ?15-29 ?| ?Stage four ? | ? Stage four ?+ ---+ ---+ -------+| ?<15 (or dialysis) ? ?| ?Stage five ? | ? Stage five ?+ ---+ ---+ -------+ *Each stage assumes the associated GFR level has been in effect for at least three months. ?Stages 1 to 5, with or without kidney disease, indicate chronic kidney disease. Notes: Determination of stages one and two (with eGFR >59mL/min/1.73 m2) requires estimation of kidney damage for at least three months as defined by structural or functional abnormalities of the kidney, manifested by either:Pathological abnormalities or Markers of kidney damage (including abnormalities in the composition of the blood or urine or abnormalities in imaging tests). Lab Interpretation (test code = 16114-6) [facility] 22:04:31* Test Item Value Reference Range Interpretation Comme nts MAGNESIUM (test code = 4241475931) 2.2 mg/dL 1.7-2.4 Lab Interpretation (test cod e = 17363-4) [facility] 22:04:31* Test Item Value Reference Range Interpretation Comme nts PHOSPHORUS (test code = 2059688675) 5.4 mg/dL 2.5-5.0 H Lab Interpretation (test cod e = 39840-6) Abnormal [facility] GLUCOSE (AUTOMATED)2023-03-21 21:42:12* Test Item Value Reference Range Interpretation Comme nts POCT GLU (test code = 2553325542) 337 mg/dL 70-110 H Lab Interpretation (test cod e = 96634-2) Abnormal [facility] GLUCOSE (AUTOMATED)2023-03-21 21:42:12* Test Item Value Reference Range Interpretation Comme nts POCT GLU (test code = 5232354871) 337 mg/dL 70-110 H Lab Interpretation (test cod e = 75591-0) Abnormal [facility] GLUCOSE (AUTOMATED)2023-03-21 21:42:12* Test Item Value Reference Range Interpretation Comme nts POCT GLU (test code = 7448901011) 337 mg/dL 70-110 H Lab Interpretation (test cod e = 00174-8) [facility] + Lactic [id number] 21:22:42* Test Item Value Reference Range Interpretation Comme nts PH (test code = 2) 7.21 7.35-7.45 L PCO2 (test code = 0053480143) 65 See_Comment H [Automated messa ge] The system which generated this result transmitted reference range: 35 - 45 mmHg. The reference range was not used to interpret this result as normal/abnormal. PO2 (test code = 6572756558) 79 See_Comment L [Automated messa ge] The system which generated this result transmitted reference range: 80 - 100 mmHg. The reference range was not used to interpret this result as normal/abnormal. HCO3 (test code = 0550702192) 25 See_Comment [Automated messa ge] The system which generated this result transmitted reference range: 22 - 26 mEq/L. The reference range was not used to interpret this result as normal/abnormal. BE (test code = 8081279019) -3.6 See_Comment L [Automated messa ge] The system which generated this result transmitted reference range: -3.0 - 3.0 mEq/L. The reference range was not used to interpret this result as normal/abnormal. THB (test code = 8181169909) 11.1 g/dL 12.0-16.0 L %O2HB (test code = 2063904917) 91.4 % 94.0-99.0 L %COHB ART (test code = 2439051869) 1.2 % 0.0-1.5 %METHB ART (test code = 8191987330) 0.3 % 0.4-1.5 L VOL%O2 ART (test code = 7785829611) 14.4 % 15.0-23.0 L NA (test code = 0961213205) 135 mmol/L 135-145 K+ (test code = 5264883157) 4.9 mmol/L 3.5-5.0 AC CA IONZ (test code = 7222974024) 4.60 mg/dL 4.50-5.30 GLUCOSE (test code = 5300248906) 347 mg/dL 70-110 H LACTIC ACID (test code = 0191326122) 0.78 mmol/L 0.50-2.20 Lab Interpretation (test code = 23691-4) [facility] + Lactic Ofzj0208-66-10 21:22:42* Test Item Value Reference Range Interpretation Comme nts PH (test code = 2) 7.21 7.35-7.45 L PCO2 (test code = 9154355172) 65 See_Comment H [Automated messa ge] The system which generated this result transmitted reference range: 35 - 45 mmHg. The reference range was not used to interpret this result as normal/abnormal. PO2 (test code = 9393053378) 79 See_Comment L [Automated messa ge] The system which generated this result transmitted reference range: 80 - 100 mmHg. The reference range was not used to interpret this result as normal/abnormal. HCO3 (test code = 0657891662) 25 See_Comment [Automated messa ge] The system which generated this result transmitted reference range: 22 - 26 mEq/L. The reference range was not used to interpret this result as normal/abnormal. BE (test code = 3789723247) -3.6 See_Comment L [Automated messa ge] The system which generated this result transmitted reference range: -3.0 - 3.0 mEq/L. The reference range was not used to interpret this result as normal/abnormal. THB (test code = 3130048358) 11.1 g/dL 12.0-16.0 L %O2HB (test code = 2911881966) 91.4 % 94.0-99.0 L %COHB ART (test code = 8577906553) 1.2 % 0.0-1.5 %METHB ART (test code = 3865458013) 0.3 % 0.4-1.5 L VOL%O2 ART (test code = 3281255439) 14.4 % 15.0-23.0 L NA (test code = 6222161029) 135 mmol/L 135-145 K+ (test code = 6791361393) 4.9 mmol/L 3.5-5.0 AC CA IONZ (test code = 2646015971) 4.60 mg/dL 4.50-5.30 GLUCOSE (test code = 5493116456) 347 mg/dL 70-110 H LACTIC ACID (test code = 9756981322) 0.78 mmol/L 0.50-2.20 Lab Interpretation (test code = 57734-0) [facility] + Lactic [id number] 21:22:42* Test Item Value Reference Range Interpretation Comme nts PH (test code = 2) 7.21 7.35-7.45 L PCO2 (test code = 0108459631) 65 See_Comment H [Automated messa ge] The system which generated this result transmitted reference range: 35 - 45 mmHg. The reference range was not used to interpret this result as normal/abnormal. PO2 (test code = 4065738530) 79 See_Comment L [Automated messa ge] The system which generated this result transmitted reference range: 80 - 100 mmHg. The reference range was not used to interpret this result as normal/abnormal. HCO3 (test code = 5307037331) 25 See_Comment [Automated messa ge] The system which generated this result transmitted reference range: 22 - 26 mEq/L. The reference range was not used to interpret this result as normal/abnormal. BE (test code = 0574377474) -3.6 See_Comment L [Automated messa ge] The system which generated this result transmitted reference range: -3.0 - 3.0 mEq/L. The reference range was not used to interpret this result as normal/abnormal. THB (test code = 6440951667) 11.1 g/dL 12.0-16.0 L %O2HB (test code = 0553660569) 91.4 % 94.0-99.0 L %COHB ART (test code = 0908730102) 1.2 % 0.0-1.5 %METHB ART (test code = 4179359445) 0.3 % 0.4-1.5 L VOL%O2 ART (test code = 9875928511) 14.4 % 15.0-23.0 L NA (test code = 6948217753) 135 mmol/L 135-145 K+ (test code = 9928402899) 4.9 mmol/L 3.5-5.0 AC CA IONZ (test code = 0019652417) 4.60 mg/dL 4.50-5.30 GLUCOSE (test code = 4775406511) 347 mg/dL 70-110 H LACTIC ACID (test code = 5191946864) 0.78 mmol/L 0.50-2.20 Lab Interpretation (test code = 43646-1) [facility] [id number] 21:10:04* Test Item Value Reference Range Interpretation Comme nts PROTIME PATIENT (test code = 5964-2) 12.8 See_Comment H [Automated messa ge] The system which generated this result transmitted reference range: 10.1 - 12.6 Seconds. The reference range was not used to interpret this result as normal/abnormal. INR (test code = 6301-6) 1.1 Normal INR <1.1; Warfarin Therapeutic range 2.0 to 3.0 or 2.5 to 3.5, depending upon the indications. Lab Interpretation (test code = 53346-1) [facility] Test Item Value Reference Range Interpretation Comme [facility] APTT Patient (test code = 3173-2) 87 See_Comment H [Automated messa ge] The system which generated this result transmitted reference range: 26 - 36 Seconds. The reference range was not used to interpret this result as normal/abnormal. Lab Interpretation (test code = 95185-6) [facility] / [id number] 21:10:04* Test Item Value Reference Range Interpretation Comme [facility] PROTIME PATIENT (test code = 5964-2) 12.8 See_Comment H [Automated messa ge] The system which generated this result transmitted reference range: 10.1 - 12.6 Seconds. The reference range was not used to interpret this result as normal/abnormal. INR (test code = 6301-6) 1.1 Normal INR <1.1; Warfarin Therapeutic range 2.0 to 3.0 or 2.5 to 3.5, depending upon the indications. Lab Interpretation (test code = 77058-2) [facility]* Test Item Value Reference Range Interpretation Comme [facility] APTT Patient (test code = 3173-2) 87 See_Comment H [Automated messa ge] The system which generated this result transmitted reference range: 26 - 36 Seconds. The reference range was not used to interpret this result as normal/abnormal. Lab Interpretation (test code = 13766-0) [facility] / [id number] 21:10:04* Test Item Value Reference Range Interpretation Comme [facility] PROTIME PATIENT (test code = 5964-2) 12.8 See_Comment H [Automated messa ge] The system which generated this result transmitted reference range: 10.1 - 12.6 Seconds. The reference range was not used to interpret this result as normal/abnormal. INR (test code = 6301-6) 1.1 Normal INR <1.1; Warfarin Therapeutic range 2.0 to 3.0 or 2.5 to 3.5, depending upon the indications. Lab Interpretation (test code = 35373-6) [facility] 21:10:04* Test Item Value Reference Range Interpretation Comme [facility] APTT Patient (test code = 3173-2) 87 See_Comment H [Automated messa ge] The system which generated this result transmitted reference range: 26 - 36 Seconds. The reference range was not used to interpret this result as normal/abnormal. Lab Interpretation (test code = 67939-1) [facility] [id number] 21:03:24* Test Item Value Reference Range Interpretation Comme nts WBC (test code = 6690-2) 15.24 See_Comment H [Automated message] The system which generated this result transmitted reference range: 4.30 - 11.10 10*3/?L. The reference range was not used to interpret this result as normal/abnormal. RBC (test code = 789-8) 3.75 See_Comment L [Automated message] The system which generated this result transmitted reference range: 3.93 - 5.25 10*6/?L. The reference range was not used to interpret this result as normal/abnormal. HGB (test code = 718-7) 10.1 g/dL 11.6-15.0 L HCT (test code = 4544-3) 32.0 % 35.7-45.2 L MCV (test code = 787-2) 85.3 fL 80.6-95.5 MCH (test code = 785-6) 26.9 pg 25.9-32.8 MCHC (test code = 786-4) 31.6 g/dL 31.6-35.1 RDW-SD (test code = 24215-2) 52.7 fL 39.0-49.9 H RDW-CV (test code = 788-0) 17.2 % 12.0-15.5 H PLT (test code = 777-3) 218 See_Comment [Automated message] The system which generated this result transmitted reference range: 166 - 358 10*3/?L. The reference range was not used to interpret this result as normal/abnormal. MPV (test code = 24160-7) 10.9 fL 9.5-12.9 NRBC/100 WBC (test code = 0581811488) 0.0 See_Comment [Automated message] The system which generated this result transmitted reference range: 0.0 - 10.0 /100 WBCs. The reference range was not used to interpret this result as normal/abnormal. NRBC x10^3 (test code = 6438586748) See_Comment [Automated message] The system which generated this result transmitted reference range: 10*3/?L. The reference range was not used to interpret this result as normal/abnormal. GRAN MAT (NEUT) % (test code = 770-8) 83.2 % IMM GRAN % (test code = 2848139754) 0.90 % LYMPH % (test code = 736-9) 6.4 % MONO % (test code = 5905-5) 5.2 % EOS % (test code = 713-8) 3.9 % BASO % (test code = 706-2) 0.4 % GRAN MAT x10^3(ANC) (test code = 3765428500) 12.70 10*3/uL 1.88-7.09 H IMM GRAN x10^3 (test code = 6144441907) 0.13 10*3/uL 0.00-0.06 H LYMPH x10^3 (test code = 731-0) 0.97 10*3/uL 1.32-3.29 L MONO x10^3 (test code = 742-7) 0.79 10*3/uL 0.33-0.92 EOS x10^3 (test code = 711-2) 0.59 10*3/uL 0.03-0.39 H BASO x10^3 (test code = 704-7) 0.06 10*3/uL 0.01-0.07 Lab Interpretation (test code = 41754-1) Abnormal [facility] WITH [id number] 21:03:24* Test Item Value Reference Range Interpretation Comme nts WBC (test code = 6690-2) 15.24 See_Comment H [Automated message] The system which generated this result transmitted reference range: 4.30 - 11.10 10*3/?L. The reference range was not used to interpret this result as normal/abnormal. RBC (test code = 789-8) 3.75 See_Comment L [Automated message] The system which generated this result transmitted reference range: 3.93 - 5.25 10*6/?L. The reference range was not used to interpret this result as normal/abnormal. HGB (test code = 718-7) 10.1 g/dL 11.6-15.0 L HCT (test code = 4544-3) 32.0 % 35.7-45.2 L MCV (test code = 787-2) 85.3 fL 80.6-95.5 MCH (test code = 785-6) 26.9 pg 25.9-32.8 MCHC (test code = 786-4) 31.6 g/dL 31.6-35.1 RDW-SD (test code = 03862-8) 52.7 fL 39.0-49.9 H RDW-CV (test code = 788-0) 17.2 % 12.0-15.5 H PLT (test code = 777-3) 218 See_Comment [Automated message] The system which generated this result transmitted reference range: 166 - 358 10*3/?L. The reference range was not used to interpret this result as normal/abnormal. MPV (test code = 85944-8) 10.9 fL 9.5-12.9 NRBC/100 WBC (test code = 9091049542) 0.0 See_Comment [Automated message] The system which generated this result transmitted reference range: 0.0 - 10.0 /100 WBCs. The reference range was not used to interpret this result as normal/abnormal. NRBC x10^3 (test code = 1714069176) See_Comment [Automated message] The system which generated this result transmitted reference range: 10*3/?L. The reference range was not used to interpret this result as normal/abnormal. GRAN MAT (NEUT) % (test code = 770-8) 83.2 % IMM GRAN % (test code = 4163074865) 0.90 % LYMPH % (test code = 736-9) 6.4 % MONO % (test code = 5905-5) 5.2 % EOS % (test code = 713-8) 3.9 % BASO % (test code = 706-2) 0.4 % GRAN MAT x10^3(ANC) (test code = 6360442575) 12.70 10*3/uL 1.88-7.09 H IMM GRAN x10^3 (test code = 0870699111) 0.13 10*3/uL 0.00-0.06 H LYMPH x10^3 (test code = 731-0) 0.97 10*3/uL 1.32-3.29 L MONO x10^3 (test code = 742-7) 0.79 10*3/uL 0.33-0.92 EOS x10^3 (test code = 711-2) 0.59 10*3/uL 0.03-0.39 H BASO x10^3 (test code = 704-7) 0.06 10*3/uL 0.01-0.07 Lab Interpretation (test code = 38170-6) Abnormal [facility] WITH [id number] 21:03:24* Test Item Value Reference Range Interpretation Comme nts WBC (test code = 6690-2) 15.24 See_Comment H [Automated message] The system which generated this result transmitted reference range: 4.30 - 11.10 10*3/?L. The reference range was not used to interpret this result as normal/abnormal. RBC (test code = 789-8) 3.75 See_Comment L [Automated message] The system which generated this result transmitted reference range: 3.93 - 5.25 10*6/?L. The reference range was not used to interpret this result as normal/abnormal. HGB (test code = 718-7) 10.1 g/dL 11.6-15.0 L HCT (test code = 4544-3) 32.0 % 35.7-45.2 L MCV (test code = 787-2) 85.3 fL 80.6-95.5 MCH (test code = 785-6) 26.9 pg 25.9-32.8 MCHC (test code = 786-4) 31.6 g/dL 31.6-35.1 RDW-SD (test code = 42466-5) 52.7 fL 39.0-49.9 H RDW-CV (test code = 788-0) 17.2 % 12.0-15.5 H PLT (test code = 777-3) 218 See_Comment [Automated message] The system which generated this result transmitted reference range: 166 - 358 10*3/?L. The reference range was not used to interpret this result as normal/abnormal. MPV (test code = 80584-8) 10.9 fL 9.5-12.9 NRBC/100 WBC (test code = 7107686847) 0.0 See_Comment [Automated message] The system which generated this result transmitted reference range: 0.0 - 10.0 /100 WBCs. The reference range was not used to interpret this result as normal/abnormal. NRBC x10^3 (test code = 8239315719) See_Comment [Automated message] The system which generated this result transmitted reference range: 10*3/?L. The reference range was not used to interpret this result as normal/abnormal. GRAN MAT (NEUT) % (test code = 770-8) 83.2 % IMM GRAN % (test code = 7405652292) 0.90 % LYMPH % (test code = 736-9) 6.4 % MONO % (test code = 5905-5) 5.2 % EOS % (test code = 713-8) 3.9 % BASO % (test code = 706-2) 0.4 % GRAN MAT x10^3(ANC) (test code = 8316381045) 12.70 10*3/uL 1.88-7.09 H IMM GRAN x10^3 (test code = 5209619883) 0.13 10*3/uL 0.00-0.06 H LYMPH x10^3 (test code = 731-0) 0.97 10*3/uL 1.32-3.29 L MONO x10^3 (test code = 742-7) 0.79 10*3/uL 0.33-0.92 EOS x10^3 (test code = 711-2) 0.59 10*3/uL 0.03-0.39 H BASO x10^3 (test code = 704-7) 0.06 10*3/uL 0.01-0.07 Lab Interpretation (test code = 96281-7) Abnormal [facility] GLUCOSE (AUTOMATED)2023-03-21 20:45:47* Test Item Value Reference Range Interpretation Comme nts POCT GLU (test code = 4904366187) 349 mg/dL 70-110 H Lab Interpretation (test cod e = 24533-2) [facility] 20:45:47* Test Item Value Reference Range Interpretation Comme nts POCT GLU (test code = 0278891599) 349 mg/dL 70-110 H Lab Interpretation (test cod e = 40542-1) Abnormal [facility] GLUCOSE (AUTOMATED)2023-03-21 20:45:47* Test Item Value Reference Range Interpretation Comme nts POCT GLU (test code = 2701853475) 349 mg/dL 70-110 H Lab Interpretation (test cod e = 64742-6) Abnormal [facility] GLUCOSE (AUTOMATED)2023-03-21 14:49:15* Test Item Value Reference Range Interpretation Comme nts POCT GLU (test code = 4284157347) 269 mg/dL 70-110 H Lab Interpretation (test cod e = 38688-2) Abnormal [facility] GLUCOSE (AUTOMATED)2023-03-21 14:49:15* Test Item Value Reference Range Interpretation Comme nts POCT GLU (test code = 3898392279) 269 mg/dL 70-110 H Lab Interpretation (test cod e = 97255-2) Abnormal [facility] GLUCOSE (AUTOMATED)2023-03-21 14:49:15* Test Item Value Reference Range Interpretation Comme nts POCT GLU (test code = 2414567292) 269 mg/dL 70-110 H Lab Interpretation (test cod e = 01270-5) [facility] 22:11:38* Test Item Value Reference Range Interpretation Comme nts POCT GLU (test code = 9931087885) 197 mg/dL 70-110 H Lab Interpretation (test cod e = 79745-8) Abnormal [facility] GLUCOSE (AUTOMATED)2023-02-21 17:06:17* Test Item Value Reference Range Interpretation Comme nts POCT GLU (test code = 8824801909) 170 mg/dL 70-110 H Lab Interpretation (test cod e = 12130-2) Abnormal [facility] GLUCOSE (AUTOMATED)2023-02-21 13:20:45* Test Item Value Reference Range Interpretation Comme nts POCT GLU (test code = 0925496154) 108 mg/dL 70-110 Lab Interpretation (test cod e = 64229-7) [facility] [id number] 04:44:32* Test Item Value Reference Range Interpretation Comme nts LACTIC ACID (test code = 9255565648) 1.31 mmol/L 0.50-2.20 Lab Interpretation (test cod e = 84249-0) Normal [facility] Acid Whole [id number] 01:59:10* Test Item Value Reference Range Interpretation Comme nts LACTIC ACID (test code = 2265117016) 2.19 mmol/L 0.50-2.20 Lab Interpretation (test cod e = 29527-1) Normal [facility] URINALYSIS W SPECIFIC [id number] 15:30:00* Test Item Value Reference Range Interpretation Comme nts POCT U SP GRAV (test code = 3255) 1.025 mg/dl 1.005-1.025 POCT PH U (test code = 3254) 5 mg/dl 5-8 POCT U LEUK EST (test code = 3263) ++ Negative - Negative POCT U NIT (test code = 3262) Negative Negative - Negati ve POCT U PROT (test code = 3259) +++ Negative - Negative POCT U GLU (test code = 3256) Normal Negative - Negati ve POCT U KETONE (test code = 3258) Negative Negative - Negative POCT U UROBILI (test code = 3260) Normal 0.2-1 POCT U BILI (test code = 3261) Negative Negative - Negative POCT U BLD (test code = 3257) 250 Negative - Negati ve POCT U COLOR (test code = 3266) POCT U APPEAR (test code = 3267) Lab Interpretation (test cod e = 94248-9) Abnormal [facility] URINALYSIS W SPECIFIC [id number] 15:30:00* Test Item Value Reference Range Interpretation Comme nts POCT U SP GRAV (test code = 3255) 1.025 mg/dl 1.005-1.025 POCT PH U (test code = 3254) 5 mg/dl 5-8 POCT U LEUK EST (test code = 3263) ++ Negative - Negative POCT U NIT (test code = 3262) Negative Negative - Negati ve POCT U PROT (test code = 3259) +++ Negative - Negative POCT U GLU (test code = 3256) Normal Negative - Negati ve POCT U KETONE (test code = 3258) Negative Negative - Negative POCT U UROBILI (test code = 3260) Normal 0.2-1 POCT U BILI (test code = 3261) Negative Negative - Negative POCT U BLD (test code = 3257) 250 Negative - Negati ve POCT U COLOR (test code = 3266) POCT U APPEAR (test code = 3267) Lab Interpretation (test cod e = 25672-7) [id number] 02:30:21* Test Item Value Reference Range Interpretation Comme nts FERRITIN (test code = 6366057280) 105.0 ng/mL 11.0-264.0 MAJOR (test code = MAJOR) Biotin has been reported to cause a negative bias, interpret results relative to patient's use of biotin. Lab Interpretation (test code = 48645-4) [facility] [id number] 21:20:57 * Test Item Value Reference Range Interpretation Comme nts TSH (test code = 7449344302) 3.71 See_Comment [Automated [employer] ge] The system which generated this result transmitted reference range: 0.45 - 4.70 mIU/L. The reference range was not used to interpret this result as normal/abnormal. Lab Interpretation (test code = 56526-0) [facility] [id number] 21:07:16* Test Item Value Reference Range Interpretation Comme nts FREE T4 (test code = 1316910729) 1.18 See_Comment [Automated messa ge] The system which generated this result transmitted reference range: 0.78 - 2.20 ng/dL:. The reference range was not used to interpret this result as normal/abnormal. Lab Interpretation (test code = 60059-2) [facility] [id number] 20:59:33* Test Item Value Reference Range Interpretation Comme nts IRON (test code = 2502262463) 50 ug/dL 50-160 TIBC (test code = 1587198411) 322 ug/dL 250-410 % FE SAT (test code = 2319672837) 16 % 20-50 L Lab Interpretation (test cod e = 81228-4) [facility] 20:50:49* Test Item Value Reference Range Interpretation Comme nts MAGNESIUM (test code = 8720558940) 2.1 mg/dL 1.7-2.4 Lab Interpretation (test cod e = 09081-3) [facility] (A1C)2022-09-28 20:11:01* Test Item Value Reference Range Interpretation Comme nts HGB A1C (test code = 4548-4) 8.1 % 4.0-5.7 H MAJOR (test code = MAJOR) Reference RangesNormal: <5.7%Prediabetes: 5.7 - 6.4%Diabetes: > 6.5% Lab Interpretation (test code = 05015-1) Abnormal [facility] GLUCOSE (AUTOMATED)2022-07-05 22:35:15* Test Item Value Reference Range Interpretation Comme nts POCT GLU (test code = 9443384725) 228 mg/dL 70-110 H Lab Interpretation (test cod e = 98611-4) Abnormal [facility] GLUCOSE (AUTOMATED)2022-07-05 17:24:00* Test Item Value Reference Range Interpretation Comme nts POCT GLU (test code = 3955741731) 238 mg/dL 70-110 H Lab Interpretation (test cod e = 04175-3) Abnormal [facility] GLUCOSE (AUTOMATED)2022-07-05 15:19:38* Test Item Value Reference Range Interpretation Comme nts POCT GLU (test code = 5737237285) 171 mg/dL 70-110 H Lab Interpretation (test cod e = 81289-1) Abnormal [facility] GLUCOSE (AUTOMATED)2022-07-05 09:38:21* Test Item Value Reference Range Interpretation Comme nts POCT GLU (test code = 3517198909) 241 mg/dL 70-110 H Lab Interpretation (test cod e = 49744-6) Abnormal [facility] GLUCOSE (AUTOMATED)2022-07-05 07:30:23* Test Item Value Reference Range Interpretation Comme nts POCT GLU (test code = 8233471848) 179 mg/dL 70-110 H Lab Interpretation (test cod e = 44005-7) Abnormal [facility] GLUCOSE (AUTOMATED)2022-07-05 06:27:50* Test Item Value Reference Range Interpretation Comme nts POCT GLU (test code = 4418859067) 160 mg/dL 70-110 H Lab Interpretation (test cod e = 63030-3) Abnormal [facility] GLUCOSE (AUTOMATED)2022-07-04 22:34:25* Test Item Value Reference Range Interpretation Comme nts POCT GLU (test code = 6862304899) 198 mg/dL 70-110 H Lab Interpretation (test cod e = 74645-5) Abnormal [facility] GLUCOSE (AUTOMATED)2022-07-04 21:21:32* Test Item Value Reference Range Interpretation Comme nts POCT GLU (test code = 0760146812) 196 mg/dL 70-110 H Lab Interpretation (test cod e = 67893-4) Abnormal [facility] GLUCOSE (AUTOMATED)2022-07-04 17:38:52* Test Item Value Reference Range Interpretation Comme nts POCT GLU (test code = 6951240916) 202 mg/dL 70-110 H Lab Interpretation (test cod e = 48556-7) Abnormal [facility] GLUCOSE (AUTOMATED)2022-07-04 13:26:47* Test Item Value Reference Range Interpretation Comme nts POCT GLU (test code = 4435647111) 219 mg/dL 70-110 H Lab Interpretation (test cod e = 17786-3) Abnormal [facility] GLUCOSE (AUTOMATED)2022-07-04 06:42:08* Test Item Value Reference Range Interpretation Comme nts POCT GLU (test code = 3287751409) 184 mg/dL 70-110 H Lab Interpretation (test cod e = 86384-0) Abnormal [facility] GLUCOSE (AUTOMATED)2022-07-04 01:56:31* Test Item Value Reference Range Interpretation Comme [facility] POCT GLU (test code = 5859061799) 198 mg/dL 70-110 H Lab Interpretation (test cod e = 08151-2) [facility] 22:17:31* Test Item Value Reference Range Interpretation Comme [facility] POCT GLU (test code = 8674206605) 200 mg/dL 70-110 H Lab Interpretation (test cod e = 24689-2) Abnormal [facility] METABOLIC PANEL (NA, K, CL, CO2, GLUCOSE, BUN, CREATININE, CA)2022-07-03 20:26:33* Test Item Value Reference Range Interpretation Comme [facility] NA (test code = 0442147713) 136 mmol/L 135-145 K (test code = 5656397810) 3.1 mmol/L 3.5-5.0 L CL (test code = 4145786593) 81 mmol/L 98-108 L CO2 TOTAL (test code = 4121317033) 47 mmol/L 23-31 H AGAP (test code = 4775761654) 2-16 BUN (test code = 7600765756) 33 mg/dL 7-23 H GLUCOSE (test code = 9985661128) 199 mg/dL 70-110 H CREATININE (test code = 4613116668) 1.54 mg/dL 0.50-1.04 H CALCIUM (test code = 4041532006) 7.8 mg/dL 8.6-10.6 L eGFR (test code = 7981208325) mL/min/1.73m2 MAJOR (test code = MAJOR) Association of Glomerular Filtration Rate (GFR) and Staging of Kidney Disease* + --+ --+ ------+| GFR (mL/min/1.73 m2) ?| With Kidney Damage ?| ?Without Kidney Damage+ --------+ --------+ +| ?>90 ?| ?Stage one ?| ? Normal ?+ ---+ ---+ -------+| ?60-89 ?| ?Stage two ?| ? Decreased GFR ? + --+ --+ ------+| ?30-59 ?| ?Stage three ?| ? Stage three ? + --+ --+ ------+| ?15-29 ?| ?Stage four ? | ? Stage four ?+ ---+ ---+ -------+| ?<15 (or dialysis) ? ?| ?Stage five ? | ? Stage five ?+ ---+ ---+ -------+ *Each stage assumes the associated GFR level has been in effect for at least three months. ?Stages 1 to 5, with or without kidney disease, indicate chronic kidney disease. Notes: Determination of stages one and two (with eGFR >59mL/min/1.73 m2) requires estimation of kidney damage for at least three months as defined by structural or functional abnormalities of the kidney, manifested by either:Pathological abnormalities or Markers of kidney damage (including abnormalities in the composition of the blood or urine or abnormalities in imaging tests). Lab Interpretation (test code = 19952-9) [facility] [id number] 20:21:17* Test Item Value Reference Range Interpretation Comments TROPONIN I (test code = 0589441061) 0.040 ng/mL See_Comment H [Automated message] The system which generated this result transmitted reference range: <=0.034. The reference range was not used to interpret this result as normal/abnormal. MAJOR (test code = MAJOR) Reference (Normal) Range (defined by the 99th percentile reference limit): <= 0.034 ng/mL Note: Cardiac troponin begins to rise 3-4 hours after the onset of ischemia. Repeat in 4-6 hours if the sample was drawn within 3-4 hours of the onset of the symptom and found normal. Diagnosis of myocardial injury is made with acute changes in cTn concentrations with at least one serial sample above the 99th percentile upper reference limit (URL), taken together with the patient's clinical presentation. Biotin has been reported to cause a negative bias, interpret results relative to patient's use of biotin. Lab Interpretation (test code = 94581-6) [facility]normal [facility] [id number] 20:17:56* Test Item Value Reference Range Interpretation Comme nts NT-proBNP (test code = 4626397734) 3650 pg/mL See_Comment H [Automated message] The system which generated this result transmitted reference range: <=450. The reference range was not used to interpret this result as normal/abnormal. MAJOR (test code = MAJOR) Biotin has been reported to cause a negative bias, interpret results relative to patient's use of biotin. Lab Interpretation (test code = 09446-5) [facility]* Test Item Value Reference Range Interpretation Comme nts MAGNESIUM (test code = 0734501730) 2.3 mg/dL 1.7-2.4 Lab Interpretation (test cod e = 39540-6) Normal [facility] GLUCOSE (AUTOMATED)2022-07-03 18:17:58* Test Item Value Reference Range Interpretation Comme nts POCT GLU (test code = 3620349850) 218 mg/dL 70-110 H Notified Provide r Lab Interpretation (test code = 37804-9) Abnormal [facility] GLUCOSE (AUTOMATED)2022-07-03 13:39:43* Test Item Value Reference Range Interpretation Comme nts POCT GLU (test code = 1616611682) 199 mg/dL 70-110 H Lab Interpretation (test cod e = 42692-4) Abnormal [facility] GLUCOSE (AUTOMATED)2022-07-03 10:55:23* Test Item Value Reference Range Interpretation Comme nts POCT GLU (test code = 8015196400) 211 mg/dL 70-110 H Lab Interpretation (test cod e = 36859-9) Abnormal [facility] GLUCOSE (AUTOMATED)2022-07-03 06:18:57* Test Item Value Reference Range Interpretation Comme nts POCT GLU (test code = 9429573272) 172 mg/dL 70-110 H Lab Interpretation (test cod e = 52642-0) Abnormal [facility] GLUCOSE (AUTOMATED)2022-07-03 02:25:25* Test Item Value Reference Range Interpretation Comme nts POCT GLU (test code = 1435544742) 251 mg/dL 70-110 H Lab Interpretation (test cod e = 98559-6) Abnormal [facility] GLUCOSE (AUTOMATED)2022-07-03 02:25:25* Test Item Value Reference Range Interpretation Comme nts POCT GLU (test code = 2045369003) 191 mg/dL 70-110 H Lab Interpretation (test cod e = 91756-9) Abnormal [facility] GLUCOSE (AUTOMATED)2022-07-02 22:03:54* Test Item Value Reference Range Interpretation Comme nts POCT GLU (test code = 3164268234) 232 mg/dL 70-110 H Lab Interpretation (test cod e = 23402-9) Abnormal [facility] GLUCOSE (AUTOMATED)2022-07-02 22:03:49* Test Item Value Reference Range Interpretation Comme nts POCT GLU (test code = 3497494934) 191 mg/dL 70-110 H Lab Interpretation (test cod e = 23938-4) [facility] 17:28:59* Test Item Value Reference Range Interpretation Comme nts MAGNESIUM (test code = 7871024717) 2.2 mg/dL 1.7-2.4 Lab Interpretation (test cod e = 09883-6) Normal [facility] GLUCOSE (AUTOMATED)2022-07-02 13:32:56* Test Item Value Reference Range Interpretation Comme nts POCT GLU (test code = 3613772699) 184 mg/dL 70-110 H Lab Interpretation (test cod e = 99442-7) Abnormal [facility] METABOLIC PANEL (NA, K, CL, CO2, GLUCOSE, BUN, CREATININE, CA)2022-07-02 12:33:47* Test Item Value Reference Range Interpretation Comme nts NA (test code = 6744513960) 138 mmol/L 135-145 K (test code = 8558056258) 3.1 mmol/L 3.5-5.0 L CL (test code = 0053796493) 87 mmol/L 98-108 L CO2 TOTAL (test code = 1870214940) 45 mmol/L 23-31 H AGAP (test code = 7673262497) 2-16 BUN (test code = 4128181463) 26 mg/dL 7-23 H GLUCOSE (test code = 2315382011) 182 mg/dL 70-110 H CREATININE (test code = 5175494743) 1.33 mg/dL 0.50-1.04 H CALCIUM (test code = 7586845465) 7.7 mg/dL 8.6-10.6 L eGFR (test code = 1586654381) mL/min/1.73m2 MAJOR (test code = MAJOR) Association of Glomerular Filtration Rate (GFR) and Staging of Kidney Disease* + --+ --+ ------+| GFR (mL/min/1.73 m2) ?| With Kidney Damage ?| ?Without Kidney Damage+ --------+ --------+ +| ?>90 ?| ?Stage one ?| ? Normal ?+ ---+ ---+ -------+| ?60-89 ?| ?Stage two ?| ? Decreased GFR ? + --+ --+ ------+| ?30-59 ?| ?Stage three ?| ? Stage three ? + --+ --+ ------+| ?15-29 ?| ?Stage four ? | ? Stage four ?+ ---+ ---+ -------+| ?<15 (or dialysis) ? ?| ?Stage five ? | ? Stage five ?+ ---+ ---+ -------+ *Each stage assumes the associated GFR level has been in effect for at least three months. ?Stages 1 to 5, with or without kidney disease, indicate chronic kidney disease. Notes: Determination of stages one and two (with eGFR >59mL/min/1.73 m2) requires estimation of kidney damage for at least three months as defined by structural or functional abnormalities of the kidney, manifested by either:Pathological abnormalities or Markers of kidney damage (including abnormalities in the composition of the blood or urine or abnormalities in imaging tests). Lab Interpretation (test code = 63402-4) [facility] [id number] 12:04:10* Test Item Value Reference Range Interpretation Comments TROPONIN I (test code = 1693109316) 0.060 ng/mL See_Comment H [Automated message] The system which generated this result transmitted reference range: <=0.034. The reference range was not used to interpret this result as normal/abnormal. MAJOR (test code = MAJOR) Reference (Normal) Range (defined by the 99th percentile reference limit): <= 0.034 ng/mL Note: Cardiac troponin begins to rise 3-4 hours after the onset of ischemia. Repeat in 4-6 hours if the sample was drawn within 3-4 hours of the onset of the symptom and found normal. Diagnosis of myocardial injury is made with acute changes in cTn concentrations with at least one serial sample above the 99th percentile upper reference limit (URL), taken together with the patient's clinical presentation. Biotin has been reported to cause a negative bias, interpret results relative to patient's use of biotin. Lab Interpretation (test code = 96961-2) [facility]normal [facility] [id number] 12:01:08* Test Item Value Reference Range Interpretation Comme nts NT-proBNP (test code = 6558737964) 5730 pg/mL See_Comment H [Automated message] The system which generated this result transmitted reference range: <=450. The reference range was not used to interpret this result as normal/abnormal. MAJOR (test code = MAJOR) Biotin has been reported to cause a negative bias, interpret results relative to patient's use of biotin. Lab Interpretation (test code = 43758-0) [facility]normal [facility] HospitalLIP[facility] (85922)(TOTAL CHOLESTEROL, TRIGLYCERIDES, HDL)2022-07-02 11:55:30* Test Item Value Reference Range Interpretation Comme nts CHOL (test code = 5044856091) 113 mg/dL 120-200 L HDL (test code = 9994610709) 17 mg/dL See_Comment L [Automated messa ge] The system which generated this result transmitted reference range: >=50. The reference range was not used to interpret this result as normal/abnormal. HDLC RATIO (test code = 1595320550) See_Comment H [Automated messa ge] The system which generated this result transmitted reference range: <=4.5. The reference range was not used to interpret this result as normal/abnormal. TRIG (test code = 6902499486) 175 mg/dL 30-170 H LDL CHOL (test code = 21131-8) 61 mg/dL See_Comment [Automated messa ge] The system which generated this result transmitted reference range: <=160. The reference range was not used to interpret this result as normal/abnormal. VLDL (test code = 9826902804) 35 mg/dL 5-60 Lab Interpretation (test code = 84439-9) [facility] [id number] 11:27:24* Test Item Value Reference Range Interpretation Comme nts WBC (test code = 6690-2) See_Comment [Automated messa ge] The system which generated this result transmitted reference range: 4.30 - 11.10 10*3/?L. The reference range was not used to interpret this result as normal/abnormal. RBC (test code = 789-8) See_Comment [Automated messa ge] The system which generated this result transmitted reference range: 3.93 - 5.25 10*6/?L. The reference range was not used to interpret this result as normal/abnormal. HGB (test code = 718-7) 9.8 g/dL 11.6-15.0 L HCT (test code = 4544-3) 32.6 % 35.7-45.2 L MCV (test code = 787-2) 82.7 fL 80.6-95.5 MCH (test code = 785-6) 24.9 pg 25.9-32.8 L MCHC (test code = 786-4) 30.1 g/dL 31.6-35.1 L RDW-SD (test code = 90843-4) 51.4 fL 39.0-49.9 H RDW-CV (test code = 788-0) 17.1 % 12.0-15.5 H PLT (test code = 777-3) See_Comment [Automated Spunkmobilea ge] The system which generated this result transmitted reference range: 166 - 358 10*3/?L. The reference range was not used to interpret this result as normal/abnormal. MPV (test code = 08167-1) 9.5 fL 9.5-12.9 NRBC/100 WBC (test code = 6786115285) See_Comment [Automated Futon ssage] The system which generated this result transmitted reference range: 0.0 - 10.0 /100 WBCs. The reference range was not used to interpret this result as normal/abnormal. NRBC x10^3 (test code = 9617623687) See_Comment [Automated Spunkmobilea ge] The system which generated this result transmitted reference range: 10*3/?L. The reference range was not used to interpret this result as normal/abnormal. GRAN MAT (NEUT) % (test code = 770-8) 67.5 % IMM GRAN % (test code = 1813675202) 0.70 % LYMPH % (test code = 736-9) 10.7 % MONO % (test code = 5905-5) 14.1 % EOS % (test code = 713-8) 6.5 % BASO % (test code = 706-2) 0.5 % GRAN MAT x10^3(ANC) (test code = 8273512498) 3.98 10*3/uL 1.88-7.09 IMM GRAN x10^3 (test code = 6178423620) 0.04 10*3/uL 0.00-0.06 LYMPH x10^3 (test code = 731-0) 0.63 10*3/uL 1.32-3.29 L MONO x10^3 (test code = 742-7) 0.83 10*3/uL 0.33-0.92 EOS x10^3 (test code = 711-2) 0.38 10*3/uL 0.03-0.39 BASO x10^3 (test code = 704-7) 0.03 10*3/uL 0.01-0.07 Lab Interpretation (test code = 88571-2) Abnormal [facility] GLUCOSE (AUTOMATED)2022-07-02 05:18:28* Test Item Value Reference Range Interpretation Comme nts POCT GLU (test code = 0310114374) 186 mg/dL 70-110 H Lab Interpretation (test cod e = 65378-9) Abnormal [facility] GLUCOSE (AUTOMATED)2022-07-02 02:16:12* Test Item Value Reference Range Interpretation Comme nts POCT GLU (test code = 8002908065) 167 mg/dL 70-110 H Lab Interpretation (test cod e = 76889-3) Abnormal [facility] GLUCOSE (AUTOMATED)2022-07-01 22:29:43* Test Item Value Reference Range Interpretation Comme nts POCT GLU (test code = 9608761456) 166 mg/dL 70-110 H Notified Provide r Lab Interpretation (test code = 79440-5) Abnormal [facility] GLUCOSE (AUTOMATED)2022-07-01 22:29:37* Test Item Value Reference Range Interpretation Comme nts POCT GLU (test code = 0980174983) 219 mg/dL 70-110 H Notified Provide r Lab Interpretation (test code = 02028-0) Abnormal [facility] GLUCOSE (AUTOMATED)2022-07-01 22:29:32* Test Item Value Reference Range Interpretation Comme nts POCT GLU (test code = 4135256876) 219 mg/dL 70-110 H Notified Provide r Lab Interpretation (test code = 23614-4) Abnormal [facility] CULTURE [id number] 20:01:37* Test Item Value Reference Range Interpretation Comme nts Blood Culture-Aerobic (test code = 36916-0) No organisms isolated No growth Previous preliminary verified result was Culture In Progress on 06/26/2022 at 1701 CSTPrevious preliminary verified result was No growth at 24 hours on 06/27/2022 at 1401 CSTPrevious preliminary verified result was No growth at 48 hours on 06/28/2022 at 1401 CSTPrevious preliminary verified result was No growth at 72 hours on 06/29/2022 at 1401 DIRECTOR OF QUALITY CONTROL Blood Culture-Anaerobic (test code = 62079-7) No organisms isolated No growth Previous preliminary verified result was Culture In Progress on 06/26/2022 at 1701 CSTPrevious preliminary verified result was No growth at 24 hours on 06/27/2022 at 1401 CSTPrevious preliminary verified result was No growth at 48 hours on 06/28/2022 at 1401 CSTPrevious preliminary verified result was No growth at 72 hours on 06/29/2022 at 1401 DIRECTOR OF QUALITY CONTROL Lab Interpretation (test code = 14327-3) Normal [facility] CULTURE [id number] 20:01:37* Test Item Value Reference Range Interpretation Comme nts Blood Culture-Aerobic (test code = 13280-9) No organisms isolated No growth Previous preliminary verified result was Culture In Progress on 06/26/2022 at 1701 CSTPrevious preliminary verified result was No growth at 24 hours on 06/27/2022 at 1401 CSTPrevious preliminary verified result was No growth at 48 hours on 06/28/2022 at 1401 CSTPrevious preliminary verified result was No growth at 72 hours on 06/29/2022 at 1401 DIRECTOR OF QUALITY CONTROL Blood Culture-Anaerobic (test code = 31781-0) No organisms isolated No growth Previous preliminary verified result was Culture In Progress on 06/26/2022 at 1701 CSTPrevious preliminary verified result was No growth at 24 hours on 06/27/2022 at 1401 CSTPrevious preliminary verified result was No growth at 48 hours on 06/28/2022 at 1401 CSTPrevious preliminary verified result was No growth at 72 hours on 06/29/2022 at 1401 DIRECTOR OF QUALITY CONTROL Lab Interpretation (test code = 03104-9) Normal [facility] GLUCOSE (AUTOMATED)2022-07-01 09:39:13* Test Item Value Reference Range Interpretation Comme nts POCT GLU (test code = 6546657770) 198 mg/dL 70-110 H Lab Interpretation (test cod e = 26041-2) Abnormal [facility] GLUCOSE (AUTOMATED)2022-07-01 05:30:18* Test Item Value Reference Range Interpretation Comme nts POCT GLU (test code = 4506379157) 221 mg/dL 70-110 H Lab Interpretation (test cod e = 95890-6) Abnormal [facility] GLUCOSE (AUTOMATED)2022-07-01 02:07:09* Test Item Value Reference Range Interpretation Comme nts POCT GLU (test code = 9793955371) 220 mg/dL 70-110 H Lab Interpretation (test cod e = 57199-5) Abnormal [facility] GLUCOSE (AUTOMATED)2022-06-30 22:49:27* Test Item Value Reference Range Interpretation Comme nts POCT GLU (test code = 8206281103) 197 mg/dL 70-110 H Lab Interpretation (test cod e = 36604-0) Abnormal [facility] GLUCOSE (AUTOMATED)2022-06-30 18:01:17* Test Item Value Reference Range Interpretation Comme nts POCT GLU (test code = 8577192464) 198 mg/dL 70-110 H Lab Interpretation (test cod e = 03094-8) Abnormal [facility] GLUCOSE (AUTOMATED)2022-06-30 14:41:50* Test Item Value Reference Range Interpretation Comme nts POCT GLU (test code = 8630923278) 249 mg/dL 70-110 H Lab Interpretation (test cod e = 25685-1) Abnormal [facility] METABOLIC PANEL (NA, K, CL, CO2, GLUCOSE, BUN, CREATININE, CA)2022-06-30 12:42:06* Test Item Value Reference Range Interpretation Comme nts NA (test code = 2971657590) 140 mmol/L 135-145 K (test code = 4597573314) 3.6 mmol/L 3.5-5.0 CL (test code = 4321686755) 100 mmol/L 98-108 CO2 TOTAL (test code = 9369732276) 33 mmol/L 23-31 H AGAP (test code = 7952165287) 2-16 BUN (test code = 2240374467) 18 mg/dL 7-23 GLUCOSE (test code = 8172572723) 185 mg/dL 70-110 H CREATININE (test code = 2544236412) 1.35 mg/dL 0.50-1.04 H CALCIUM (test code = 0869619042) 8.5 mg/dL 8.6-10.6 L eGFR (test code = 4998829328) mL/min/1.73m2 MAJOR (test code = MAJOR) Association of Glomerular Filtration Rate (GFR) and Staging of Kidney Disease* + --+ --+ ------+| GFR (mL/min/1.73 m2) ?| With Kidney Damage ?| ?Without Kidney Damage+ --------+ --------+ +| ?>90 ?| ?Stage one ?| ? Normal ?+ ---+ ---+ -------+| ?60-89 ?| ?Stage two ?| ? Decreased GFR ? + --+ --+ ------+| ?30-59 ?| ?Stage three ?| ? Stage three ? + --+ --+ ------+| ?15-29 ?| ?Stage four ? | ? Stage four ?+ ---+ ---+ -------+| ?<15 (or dialysis) ? ?| ?Stage five ? | ? Stage five ?+ ---+ ---+ -------+ *Each stage assumes the associated GFR level has been in effect for at least three months. ?Stages 1 to 5, with or without kidney disease, indicate chronic kidney disease. Notes: Determination of stages one and two (with eGFR >59mL/min/1.73 m2) requires estimation of kidney damage for at least three months as defined by structural or functional abnormalities of the kidney, manifested by either:Pathological abnormalities or Markers of kidney damage (including abnormalities in the composition of the blood or urine or abnormalities in imaging tests). Lab Interpretation (test code = 83809-2) [facility] Test Item Value Reference Range Interpretation Comme nts MAGNESIUM (test code = 8226649318) 2.3 mg/dL 1.7-2.4 Lab Interpretation (test cod e = 57287-0) [facility]* Test Item Value Reference Range Interpretation Comme nts PHOSPHORUS (test code = 1243150367) 2.8 mg/dL 2.5-5.0 Lab Interpretation (test cod e = 59756-6) [facility] [id number] 12:42:06* Test Item Value Reference Range Interpretation Comme nts NT-proBNP (test code = 5650326863) 9660 pg/mL See_Comment H [Automated message] The system which generated this result transmitted reference range: <=450. The reference range was not used to interpret this result as normal/abnormal. MAJOR (test code = MAJOR) Biotin has been reported to cause a negative bias, interpret results relative to patient's use of biotin. Lab Interpretation (test code = 05123-9) [facility] [id number] 11:09:01* Test Item Value Reference Range Interpretation Comme nts WBC (test code = 6690-2) See_Comment H [Automated Spunkmobilea ge] The system which generated this result transmitted reference range: 4.30 - 11.10 10*3/?L. The reference range was not used to interpret this result as normal/abnormal. RBC (test code = 789-8) See_Comment [Automated Spunkmobilea ge] The system which generated this result transmitted reference range: 3.93 - 5.25 10*6/?L. The reference range was not used to interpret this result as normal/abnormal. HGB (test code = 718-7) 9.9 g/dL 11.6-15.0 L HCT (test code = 4544-3) 32.4 % 35.7-45.2 L MCV (test code = 787-2) 81.6 fL 80.6-95.5 MCH (test code = 785-6) 24.9 pg 25.9-32.8 L MCHC (test code = 786-4) 30.6 g/dL 31.6-35.1 L RDW-SD (test code = 26161-5) 50.2 fL 39.0-49.9 H RDW-CV (test code = 788-0) 17.1 % 12.0-15.5 H PLT (test code = 777-3) See_Comment [Automated Spunkmobilea ge] The system which generated this result transmitted reference range: 166 - 358 10*3/?L. The reference range was not used to interpret this result as normal/abnormal. MPV (test code = 51695-7) 10.1 fL 9.5-12.9 NRBC/100 WBC (test code = 6868587877) See_Comment [Automated Futon ssage] The system which generated this result transmitted reference range: 0.0 - 10.0 /100 WBCs. The reference range was not used to interpret this result as normal/abnormal. NRBC x10^3 (test code = 7057251469) See_Comment [Automated Spunkmobilea ge] The system which generated this result transmitted reference range: 10*3/?L. The reference range was not used to interpret this result as normal/abnormal. GRAN MAT (NEUT) % (test code = 770-8) 83.2 % IMM GRAN % (test code = 8599325170) 0.80 % LYMPH % (test code = 736-9) 7.0 % MONO % (test code = 5905-5) 7.2 % EOS % (test code = 713-8) 1.5 % BASO % (test code = 706-2) 0.3 % GRAN MAT x10^3(ANC) (test code = 8083321202) 9.74 10*3/uL 1.88-7.09 H IMM GRAN x10^3 (test code = 2252444664) 0.09 10*3/uL 0.00-0.06 H LYMPH x10^3 (test code = 731-0) 0.82 10*3/uL 1.32-3.29 L MONO x10^3 (test code = 742-7) 0.84 10*3/uL 0.33-0.92 EOS x10^3 (test code = 711-2) 0.18 10*3/uL 0.03-0.39 BASO x10^3 (test code = 704-7) 0.04 10*3/uL 0.01-0.07 Lab Interpretation (test code = 42538-7) Abnormal [facility] GLUCOSE (AUTOMATED)2022-06-30 10:54:19* Test Item Value Reference Range Interpretation Comme nts POCT GLU (test code = 9978705234) 174 mg/dL 70-110 H Lab Interpretation (test cod e = 70898-6) Abnormal [facility] GLUCOSE (AUTOMATED)2022-06-30 02:23:20* Test Item Value Reference Range Interpretation Comme nts POCT GLU (test code = 9599523596) 187 mg/dL 70-110 H Lab Interpretation (test cod e = 17642-6) Abnormal [facility] GLUCOSE (AUTOMATED)2022-06-30 01:12:17* Test Item Value Reference Range Interpretation Comme nts POCT GLU (test code = 6217094288) 206 mg/dL 70-110 H Lab Interpretation (test cod e = 61044-3) [facility] 22:52:13* Test Item Value Reference Range Interpretation Comme nts Height (test code = 9227965231) in Weight (test code = 8763682892) lbs Systolic BP (test code = 9370235396) mmHg Diastolic BP (test code = 5433917730) mmHg Heart Rate (test code = 2047344049) bpm BSA (test code = 0470853337) 2.25 m2 LVIDD (test code = 1703023773) 5.90 cm Left Ventricular End Diastolic Volume by Teichholz Method (test code = 4990151) 171.4 mL IVS (test code = 5390940717) 1.10 cm Interventricular Septum Diastolic Thickness by 2D (test code = 0991785) 1.10 cm LVPWD (test code = 4862678617) 0.97 cm PW (test code = 5786891838) 0.97 cm 0.6-1.1 EF(Teich) (test code = 9150193227) 46.70 % LVIDS (test code = 7327929006) 4.50 cm Left Ventricular End Systolic Volume by Teichholz Method (test code = 7323048) 91.3 mL FS (test code = 5377919939) 24 % EF - 2D (test code = 87007888) 46.70 % LVOT diameter (test code = 3630172342) 2.05 cm LVOT area (test code = 3505771923) 3.30 cm2 ACS (test code = 1466308102) 1.83 cm Ao root diam (test code = 6118491974) 3.30 cm Aortic root (test code = 4065238114) 3.3 cm Ao root annulus (test code = 0076563329) 3.3 cm LA size (test code = 0423171669) 3.7 cm E wave decelartion time (test code = 7026893479) 0.18 s MV Peak E Johnny (test code = 7524044342) 114.6 cm/s MV Peak A Johnny (test code = 6384076892) 106.0 cm/s E/A ratio (test code = 5984880088) ratio MV Prop V (test code = 7618146899) 36.10 cm/s Tapse (test code = 4549248260) 2.31 cm TR Peak Johnny (test code = 4888627222) 293.8 cm/s Triscuspid Valve Regurgitation Peak Gradient (test code = 0821486019) mmHg LVOT stroke volume (test code = 0434926693) 107.50 cm3 LVOT peak johnny (test code = 9050414806) 143.9 cm/s LVOT mn grad (test code = 2792779196) mmHg AV LVOT peak gradient (test code = 2756915000) mmHg LVOT peak VTI (test code = 1992459858) 32.7 cm LV V1 mean (test code = 1438486570) 96.10 cm/s Aortic valve mean velocity (test code = 7302270868) 125.9 cm/s Ao peak johnny (test code = 5332141721) 208.3 cm/s Ao VTI (test code = 2700704979) 42.4 cm AV area by cont VTI (test code = 8785631085) 2.5 cm2 AV area peak johnny (test code = 6157753599) 2.3 cm2 Ao max PG (test code = 1349739989) 17.40 mm[Hg] AV peak gradient (test code = 3200245340) mmHg AV valve area (test code = 1839096512) 2.50 cm2 AV mean gradient (test code = 2326416097) mmHg Radiology Study observation (narrative) (test code = 06096-2) MAJOR (test code = MAJOR) Table formatting f rom the original result was not included. ?Left?Ventricle: Left ventricle is mildly dilated. Mildly increased wall thickness. Mild global hypokinesis present. Mildly reduced systolic function with a visually estimated EF of 40 - 45%. Unable to assess diastolic function due to arrhythmia. ?Pericardium: No pericardial effusion. ?Tricuspid?Valve: Mild transvalvular regurgitation. Right ventricular systolic pressure is 40 mmHg + RA pressure. ?IVC/SVC: IVC was not well visualized. M[facility]cc[facility]ick [facility] Weight BSA (Calculated - sq m) BP Pulse 5' 4" (1.626 m) 251 lb (113.9 kg) 2.27 sq meters 135/64 85 Left VentricleLeft ventricle is mildly dilated. Mildly increased wall thickness. Mild global hypokinesis present. Mildly reduced systolic function with a visually estimated EF of 40 - 45%. Unable to assess diastolic function due to arrhythmia.Right VentricleRight ventricle size is normal. Normal systolic function.Left AtriumLeft atrium size is normal.Right AtriumRight atrium size is normal.IVC/SVCIVC was not well visualized.Mitral ValveMildly thickened leaflets. Mildly calcified leaflets. Mild mitral annular calcification.Tricusp id ValveNot well visualized. Mild transvalvular regurgitation. Right ventricular systolic pressure is 40 mmHg + RA pressure.Aortic ValveTricuspid.Pulmon ic ValveNot well visualized. Trace transvalvular regurgitation.Ascendi ng AortaNormal sized aorta.PericardiumNo pericardial effusion.Study DetailsStudy quality was adequate. A complete echocardiogram was performed using 2D, color flow Doppler and spectral Doppler. The apical, parasternal and subcostal views were obtained. [facility] GLUCOSE (AUTOMATED)2022-06-29 17:20:48* Test Item Value Reference Range Interpretation Comme [facility] POCT GLU (test code = 5329231703) 206 mg/dL 70-110 H Lab Interpretation (test cod e = 59830-7) Abnormal [facility] GLUCOSE (AUTOMATED)2022-06-29 13:50:59* Test Item Value Reference Range Interpretation Comme nts POCT GLU (test code = 0192200264) 200 mg/dL 70-110 H Lab Interpretation (test cod e = 28184-7) Abnormal [facility] GLUCOSE (AUTOMATED)2022-06-29 07:09:24* Test Item Value Reference Range Interpretation Comme nts POCT GLU (test code = 3346205740) 196 mg/dL 70-110 H Lab Interpretation (test cod e = 41740-5) Abnormal [facility] GLUCOSE (AUTOMATED)2022-06-29 02:38:41* Test Item Value Reference Range Interpretation Comme nts POCT GLU (test code = 1526810155) 231 mg/dL 70-110 H Lab Interpretation (test cod e = 43588-9) Abnormal [facility] GLUCOSE (AUTOMATED)2022-06-28 22:33:13* Test Item Value Reference Range Interpretation Comme nts POCT GLU (test code = 0470576107) 179 mg/dL 70-110 H Lab Interpretation (test cod e = 38695-3) Abnormal [facility] GLUCOSE (AUTOMATED)2022-06-28 17:29:15* Test Item Value Reference Range Interpretation Comme nts POCT GLU (test code = 8410598299) 166 mg/dL 70-110 H Lab Interpretation (test cod e = 63074-0) Abnormal [facility] GLUCOSE (AUTOMATED)2022-06-28 13:43:31* Test Item Value Reference Range Interpretation Comme nts POCT GLU (test code = 1890293713) 178 mg/dL 70-110 H Lab Interpretation (test cod e = 82392-9) Abnormal [facility] GLUCOSE (AUTOMATED)2022-06-28 10:25:09* Test Item Value Reference Range Interpretation Comme nts POCT GLU (test code = 2140617449) 179 mg/dL 70-110 H Lab Interpretation (test cod e = 89680-0) Abnormal [facility] GLUCOSE (AUTOMATED)2022-06-28 05:58:08* Test Item Value Reference Range Interpretation Comme nts POCT GLU (test code = 2555819303) 211 mg/dL 70-110 H Lab Interpretation (test cod e = 68576-3) Abnormal [facility] GLUCOSE (AUTOMATED)2022-06-28 02:15:08* Test Item Value Reference Range Interpretation Comme nts POCT GLU (test code = 9393486296) 214 mg/dL 70-110 H Lab Interpretation (test cod e = 71313-5) Abnormal [facility] GLUCOSE (AUTOMATED)2022-06-27 22:33:11* Test Item Value Reference Range Interpretation Comme nts POCT GLU (test code = 5321362248) 213 mg/dL 70-110 H Lab Interpretation (test cod e = 61867-6) Abnormal [facility] GLUCOSE (AUTOMATED)2022-06-27 17:52:15* Test Item Value Reference Range Interpretation Comme nts POCT GLU (test code = 7683226072) 189 mg/dL 70-110 H Lab Interpretation (test cod e = 57683-3) Abnormal [facility] GLUCOSE (AUTOMATED)2022-06-27 14:05:18* Test Item Value Reference Range Interpretation Comme nts POCT GLU (test code = 3988407112) 116 mg/dL 70-110 H Lab Interpretation (test cod e = 05268-8) Abnormal [facility] GLUCOSE (AUTOMATED)2022-06-27 11:01:48* Test Item Value Reference Range Interpretation Comme nts POCT GLU (test code = 0216518142) 108 mg/dL 70-110 Lab Interpretation (test cod e = 89528-0) Normal [facility] GLUCOSE (AUTOMATED)2022-06-27 06:00:42* Test Item Value Reference Range Interpretation Comme nts POCT GLU (test code = 5401006224) 97 mg/dL 70-110 Lab Interpretation (test cod e = 96724-7) Normal [facility] GLUCOSE (AUTOMATED)2022-06-27 02:31:07* Test Item Value Reference Range Interpretation Comme nts POCT GLU (test code = 8748259842) 88 mg/dL 70-110 Lab Interpretation (test cod e = 91888-6) [id number] 18:50:59* Test Item Value Reference Range Interpretation Comments TROPONIN I (test code = 6804435279) 0.039 ng/mL See_Comment H [Automated message] The system which generated this result transmitted reference range: <=0.034. The reference range was not used to interpret this result as normal/abnormal. MAJOR (test code = MAJOR) Reference (Normal) Range (defined by the 99th percentile reference limit): <= 0.034 ng/mL Note: Cardiac troponin begins to rise 3-4 hours after the onset of ischemia. Repeat in 4-6 hours if the sample was drawn within 3-4 hours of the onset of the symptom and found normal. Diagnosis of myocardial injury is made with acute changes in cTn concentrations with at least one serial sample above the 99th percentile upper reference limit (URL), taken together with the patient's clinical presentation. Biotin has been reported to cause a negative bias, interpret results relative to patient's use of biotin. Lab Interpretation (test code = 86298-0) [id number] 18:47:58* Test Item Value Reference Range Interpretation Comme nts NT-proBNP (test code = 8488138069) 3840 pg/mL See_Comment H [Automated message] The system which generated this result transmitted reference range: <=450. The reference range was not used to interpret this result as normal/abnormal. MAJOR (test code = MAJOR) Biotin has been reported to cause a negative bias, interpret results relative to patient's use of biotin. Lab Interpretation (test code = 36147-5) [facility] 18:39:19* Test Item Value Reference Range Interpretation Comme nts MAGNESIUM (test code = 2218657099) 1.9 mg/dL 1.7-2.4 Lab Interpretation (test cod e = 48615-6) [facility] (40770)2022-06-26 18:38:59* Test Item Value Reference Range Interpretation Comme nts NA (test code = 8106839847) 134 mmol/L 135-145 L K (test code = 4127289182) 4.0 mmol/L 3.5-5.0 CL (test code = 9451054278) 101 mmol/L 98-108 CO2 TOTAL (test code = 7527162519) 25 mmol/L 23-31 AGAP (test code = 8233180035) 2-16 BUN (test code = 3331622878) 23 mg/dL 7-23 GLUCOSE (test code = 3629571113) 80 mg/dL 70-110 CREATININE (test code = 7961578249) 1.44 mg/dL 0.50-1.04 H TOTAL BILI (test code = 4665593157) 1.1 mg/dL 0.1-1.1 CALCIUM (test code = 2755204628) 8.4 mg/dL 8.6-10.6 L T PROTEIN (test code = 1388495686) 6.4 g/dL 6.3-8.2 ALBUMIN (test code = 9044291203) 3.5 g/dL 3.5-5.0 ALK PHOS (test code = 3834821653) 28 U/L 34-122 L ALTv (test code = 1742-6) 20 U/L 5-35 AST(SGOT) (test code = 7491253792) 42 U/L 13-40 H eGFR (test code = 8321549494) mL/min/1.73m2 MAJOR (test code = MAJOR) Association of Glomerular Filtration Rate (GFR) and Staging of Kidney Disease* + --+ --+ ------+| GFR (mL/min/1.73 m2) ?| With Kidney Damage ?| ?Without Kidney Damage+ --------+ --------+ +| ?>90 ?| ?Stage one ?| ? Normal ?+ ---+ ---+ -------+| ?60-89 ?| ?Stage two ?| ? Decreased GFR ? + --+ --+ ------+| ?30-59 ?| ?Stage three ?| ? Stage three ? + --+ --+ ------+| ?15-29 ?| ?Stage four ? | ? Stage four ?+ ---+ ---+ -------+| ?<15 (or dialysis) ? ?| ?Stage five ? | ? Stage five ?+ ---+ ---+ -------+ *Each stage assumes the associated GFR level has been in effect for at least three months. ?Stages 1 to 5, with or without kidney disease, indicate chronic kidney disease. Notes: Determination of stages one and two (with eGFR >59mL/min/1.73 m2) requires estimation of kidney damage for at least three months as defined by structural or functional abnormalities of the kidney, manifested by either:Pathological abnormalities or Markers of kidney damage (including abnormalities in the composition of the blood or urine or abnormalities in imaging tests). Lab Interpretation (test code = 06113-8) [facility] Test Item Value Reference Range Interpretation Comme [facility] LIPASE (test code = 8466520245) 224 U/L 0-220 H Lab Interpretation (test cod e = 47288-6) [facility]normal [facility] [id number] 18:31:19* Test Item Value Reference Range Interpretation Comme nts APTT Patient (test code = 3173-2) See_Comment [Automated message] The system which generated this result transmitted reference range: 23 - 38 Seconds. The reference range was not used to interpret this result as normal/abnormal. MAJOR (test code = MAJOR) The [facility] patient population mean normal value for aPTT is 30 seconds. Lab Interpretation (test code = 20028-2) Normal [facility] / [id number] 18:29:17* Test Item Value Reference Range Interpretation Comme nts PROTIME PATIENT (test code = 5964-2) See_Comment H [Automated Spunkmobile[employer] SnapAppointments] The system which generated this result transmitted reference range: 12.0 - 14.7 Seconds. The reference range was not used to interpret this result as normal/abnormal. INR (test code = 6301-6) Normal INR <1.1; Warfarin Therapeutic range 2.0 to 3.0 or 2.5 to 3.5, depending upon the indications. Lab Interpretation (test code = 51417-2) [facility]normal [facility] [id number] 18:21:57* Test Item Value Reference Range Interpretation Comme nts WBC (test code = 6690-2) See_Comment [Automated Spunkmobile[employer] SnapAppointments] The system which generated this result transmitted reference range: 4.30 - 11.10 10*3/?L. The reference range was not used to interpret this result as normal/abnormal. RBC (test code = 789-8) See_Comment L [Automated Spunkmobile[employer] SnapAppointments] The system which generated this result transmitted reference range: 3.93 - 5.25 10*6/?L. The reference range was not used to interpret this result as normal/abnormal. HGB (test code = 718-7) 9.7 g/dL 11.6-15.0 L HCT (test code = 4544-3) 30.0 % 35.7-45.2 L MCV (test code = 787-2) 77.7 fL 80.6-95.5 L MCH (test code = 785-6) 25.1 pg 25.9-32.8 L MCHC (test code = 786-4) 32.3 g/dL 31.6-35.1 RDW-SD (test code = 61378-5) 47.9 fL 39.0-49.9 RDW-CV (test code = 788-0) 17.0 % 12.0-15.5 H PLT (test code = 777-3) See_Comment [Automated messa ge] The system which generated this result transmitted reference range: 166 - 358 10*3/?L. The reference range was not used to interpret this result as normal/abnormal. MPV (test code = 58202-1) 9.8 fL 9.5-12.9 NRBC/100 WBC (test code = 2431663998) See_Comment [Automated Futon ssage] The system which generated this result transmitted reference range: 0.0 - 10.0 /100 WBCs. The reference range was not used to interpret this result as normal/abnormal. NRBC x10^3 (test code = 7534362375) See_Comment [Automated messa ge] The system which generated this result transmitted reference range: 10*3/?L. The reference range was not used to interpret this result as normal/abnormal. GRAN MAT (NEUT) % (test code = 770-8) 79.8 % IMM GRAN % (test code = 8695922561) 0.40 % LYMPH % (test code = 736-9) 10.3 % MONO % (test code = 5905-5) 8.9 % EOS % (test code = 713-8) 0.2 % BASO % (test code = 706-2) 0.4 % GRAN MAT x10^3(ANC) (test code = 1347694779) 4.11 10*3/uL 1.88-7.09 IMM GRAN x10^3 (test code = 6931445150) 0.00-0.06 LYMPH x10^3 (test code = 731-0) 0.53 10*3/uL 1.32-3.29 L MONO x10^3 (test code = 742-7) 0.46 10*3/uL 0.33-0.92 EOS x10^3 (test code = 711-2) 0.03-0.39 L BASO x10^3 (test code = 704-7) 0.01-0.07 Lab Interpretation (test code = 95702-0) [facility]normal [facility]OVID-19[facility] Ag [Presence] in Respiratory specimen by Rapid [id number] 10:45:00* Test Item Value Reference Range Interpretation Comme nts SARS CoV 2 (test code = SARS CoV 2) negative [facility] Consult Notes Date/Time Note Provider Source 2023-02-21 12:00:00 Associated Order(s): CONSULT PS PASTORAL CARE Human Services Instructor visited with PT while rounding. PT received in bed awake. PT was alone. She has no family near. She has someone who is like a son to her who checks on her. PT is a . PT shared her family and health history. PT identifies a Orthodox within the non-scientology community. Human Services Instructor was a spiritual presence and corporate pilot offering active compassionate listening, creating a scared space where the PT could share her thoughts, emotions, and concerns. Human Services Instructor was an emotional presence as PT shed tears remembering her late . Human Services Instructor offered words of encouragement and prayed for PT. Additional Human Services Instructor support is available upon request. Chaplain Candice Michael DMin Pastoral Care Department [phone] Candice Michael [facility] 2023-02-21 07:58:29 Associated Order(s): CONSULT CARDIOLOGY [facility] Cardiology Consult PCP: Brian Israel Date of Service: 02/21/2023 CHIEF COMPLAINT/reason for consult: Possible syncope HISTORY OF PRESENT ILLNESS This is a 77 years old female with past medical history of paroxysmal atrial fibrillation, type 2 diabetes, history of lower extremity DVT, hypertension, hypothyroidism, obstructive sleep apnea, hyperlipidemia, morbid obesity, heart failure with mildly reduced ejection fraction, and peripheral arterial disease etc. the patient was brought to [facility] emergency room due to possible syncope, loss of consciousness and altered mental status. The patient does not recall what happened exactly. She said she probably passed out and was unable to get up. Denies chest pain or palpitations. No dizziness. This has been happening many times lately. PAST MEDICAL HISTORY Past Medical History: Diagnosis Date Arthritis all over CKD (chronic kidney disease) stage 3, GFR 30-59 ml/min Clotting disorder DVT (deep venous thrombosis) Hyperlipidemia Hypertension Follows with door captain Dr. Fuentes Hypothyroidism Lymphedema Muscle tear 2016 of right knee PAD (peripheral artery disease) Paroxysmal atrial fibrillation Type 2 diabetes mellitus Follows with paleology teacher Dr. Andersen Past Surgical History: Procedure Laterality Date HYSTERECTOMY complete hysterectomy, endometriosis, removed ovaries but small piece was left in on purpose PHACOEMULSIFICATION OF CATARACT WITH INTRAOCULAR LENS IMPLANT Family History Problem Relation Age of Onset Neurological Mother TIAs Colon Cancer Mother and stomach cancer Hypertension Mother Arthritis Mother Hypertension Father Heart Father Arthritis Father ALLERGIES Allergies Allergen Reactions Losartan Potassium Shortness of Breath and Cough Adhesive Tape-Silicones Rash Ciprofloxacin Unknown - See comments Codeine Hallucinations and Dizziness Erythromycin Unknown - See comments Lisinopril Dizziness and Other - See comments Patient had low blood pressure, elevated Cr per patient Losartan Cough Metformin Unknown - See comments Metronidazole Unknown - See comments Mycins [Macrolide Antibiotics] Rash Penicillin Rash Pentoxifylline Itching and Shortness of Breath Sulfa (Sulfonamide Antibiotics) Nausea and/or Vomiting 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, at rehab, tolerated fine with bendryl MEDICATIONS No current facility-administered medications on file prior to encounter. Current Outpatient Medications on File Prior to Encounter Medication Sig Dispense Refill BACLOFEN 10 mg tablet TAKE ONE (1) TABLET(S) BY MOUTH THREE TIMES A DAY NEEDED. MAY MAKE YOU SLEEPY. 90 tablet 3 FUROSEMIDE 40 mg tablet TAKE ONE (1) TABLET BY MOUTH EVERY MORNING AND EVENING. 180 tablet 3 TRAMADOL 50 mg tablet TAKE ONE (1) TABLET(S) BY MOUTH EVERY SIX HOURS NEEDED FOR PAIN. 30 tablet 0 azelastine 137 mcg (0.1 %) nasal spray Use 1 [place] in each nostril in the morning and 1 [place] in the evening. Use in each nostril as directed 30 mL 11 nystatin (NYSTOP) 100,000 unit/gram powder Apply to area(s) 3 (three) times daily as needed for Rash. 60 g 3 apixaban 5 mg tablet Take 1 tablet by mouth in the morning and 1 tablet in the evening. Indications: history of venous thromboembolism 180 tablet 3 tramadol HCl (TRAMADOL ORAL) Take by mouth. pramipexole 0.75 mg tablet Take 1 tablet by mouth at bedtime. 90 tablet 3 semaglutide (OZEMPIC) 2 mg/dose (8 mg/3 mL) PnIj INJECT TWO (2) MG UNDER THE SKIN ONCE WEEKLY. 9 mL 0 SPIRONOLACTONE 25 mg tablet TAKE ONE (1) TABLET(S) BY MOUTH EVERY DAY. 90 tablet 3 levothyroxine 25 mcg tablet Take 1 tablet by mouth every morning. 90 tablet 3 Non-Adherent Bandage (CURAD NON-STICK PAD) 3 X 4 " Bndg Use as directed 1 Each 3 pantoprazole 40 mg EC tablet Take 1 tablet by mouth in the morning. 90 tablet 3 TRESIBA FLEXTOUCH U-100 100 unit/mL (3 mL) InPn INJECT 30 UNIT(S) UNDER THE SKIN EVERY MORNING. pravastatin 80 mg tablet Take 1 tablet by mouth at bedtime. 90 tablet 3 BENZONATATE 100 mg capsule TAKE ONE (1) OR TWO (2) CAPSULE(S) BY MOUTH EVERY EIGHT HOURS NEEDED FOR COUGH. 90 capsule 11 escitalopram oxalate 10 mg tablet Take 1 tablet by mouth in the morning. 90 tablet 3 insulin degludec 100 unit/mL Soln inject 32 Units under the skin in the morning. Morning 20 mL 5 pregabalin 50 mg capsule Take 1 capsule by mouth in the morning and 1 capsule in the evening. 60 capsule 0 traZODone 50 mg tablet Take 1 tablet by mouth at bedtime. 90 tablet 3 metoprolol tartrate 25 mg tablet Take 0.5 tablets by mouth in the morning and 0.5 tablets in the evening. 90 tablet 1 fluticasone propionate 50 mcg/actuation nasal spray Use two sprays in each nostril daily for a week, then use one spray in each nostril daily 16 g 3 melatonin 3 mg tablet Take 1 tablet by mouth at bedtime. mupirocin 2 % ointment Apply to area(s) 3 (three) times daily. As needed 30 g 0 blood sugar diagnostic (ACCU-CHEK PHILLIP) strip Take sugars 3 times a day, DX E11.9 200 Strip 11 ferrous sulfate 325 mg (65 mg iron) tablet Take 1 tablet by mouth every Tuesday, and Tuesday in the evening. 90 tablet 0 polyethylene glycol 3350 17 gram powder Take 1 Packet by mouth daily. 100 Packet 1 Lancets (ACCU-CHEK MULTICLIX LANCET) Misc Use as directed 3 Each 7 Insulin [place], Disposable, (BD INSULIN PEN NEEDLE UF) 29 gauge x 1/2" Ndle Use as directed, once a day, DX:E11.9 100 Each 1 latanoprost (XALATAN) 0.005 % ophthalmic drops Place 1 Drop in both eyes every evening. aspirin (ASPIRIN LOW DOSE) 81 mg EC tablet Take 1 tablet by mouth in the morning. 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 Tobacco Use Smoking status: Never Passive exposure: Past Smokeless tobacco: Never Tobacco comments: exposed to 2nd hand smoke Substance and Sexual Activity Alcohol use: No Alcohol/week: 0.0 standard drinks of alcohol Drug use: No Social Determinants of Health Financial Resource Strain: Low Risk (06/28/2022) Overall Financial Resource Strain (CARDIA) Difficulty of Paying Living Expenses: Not hard at all Food Insecurity: No Food Insecurity (06/28/2022) Hunger Vital Sign Worried About Running Out of Food in the Last Year: Never true Ran Out of Food in the Last Year: Never true Transportation Needs: No Transportation Needs (06/28/2022) PRAPARE - Transportation Lack of Transportation (Medical): No Lack of Transportation (Non-Medical): No Physical Activity: Insufficiently Active (06/28/2022) Exercise Vital Sign Days of Exercise per Week: 7 days Minutes of Exercise per Session: 20 min Social Connections: Unknown (06/28/2022) Social Connection and Isolation Panel [NHANES] Frequency of Communication with Friends and Family: Never Marital Status: Never REVIEW OF SYSTEMS At least 10 systems reviewed, negative except as mentioned in HPI PHYSICAL EXAMINATION Vitals: 02/21/23 0300 02/21/23 0321 02/21/23 0412 02/21/23 0742 BP: (!) 151/64 (!) 165/58 Pulse: 75 74 71 Resp: Temp: 36.2 ?C (97.1 ?F) 36.8 ?C (98.2 ?F) TempSrc: SpO2: 90% 93% 100% Weight: 119 kg (262 lb 4.8 oz) Height: Constitutional: no apparent distress, on high flow oxygen ENT: normocephalic atraumatic, supple, no lymphadenopathy, no bruits, no JVD Lungs: clear to auscultation bilaterally Cardiovascular: S1, S2 normal, regular; no murmurs, rubs or gallops GI: soft; non-tender; non-distended; normoactive bowel sounds : not examined Musculoskeletal: Extremities: no clubbing, cyanosis, + edema Skin: no rashes Neuro: no focal deficits LABS - reviewed pertinent labs as below: CBC BMP PT/INR WBC (10*3/?L) Date Value 02/20/2023 12.81 (H) NA (mmol/L) Date Value 02/20/2023 140 No results found for: "PT" PLT (10*3/?L) Date Value 02/20/2023 229 K (mmol/L) Date Value 02/20/2023 3.6 INR (no units) Date Value 06/26/2022 1.3 HGB (g/dL) Date Value 02/20/2023 10.1 (L) BUN (mg/dL) Date Value 02/20/2023 46 (H) HCT (%) Date Value 02/20/2023 31.0 (L) CREATININE (mg/dL) Date Value 02/20/2023 1.77 (H) LIPID PROFILE GLUCOSE (mg/dL) Date Value 02/20/2023 86 CHOL (mg/dL) Date Value 02/21/2023 111 (L) TSH LDL CHOL (mg/dL) Date Value 02/21/2023 53 TSH (mIU/L) Date Value 02/21/2023 3.55 CARDIAC ENZYMES HDL (mg/dL) Date Value 02/21/2023 38 (L) No results found for: "CK" TRIG (mg/dL) Date Value 02/21/2023 102 LFTs No results found for: "CKMB" AST(SGOT) (U/L) Date Value 02/20/2023 19 TROPONIN I (ng/mL) Date Value 02/21/2023 0.031 ALT(SGPT) (U/L) Date Value 02/02/2019 23 ALTv (U/L) Date Value 02/20/2023 16 No results found for: "BNP" EKG: Normal sinus rhythm, nonspecific ST abnormality ASSESSMENT/PLAN Principal Problem: Lethargy Active Problems: Controlled type 2 diabetes mellitus without complication, with long-term current use of insulin PAD (peripheral artery disease) Chronic atrial fibrillation, unspecified Morbid obesity CHAD (obstructive sleep apnea) Chronic diastolic congestive heart failure Possible syncope, loss of consciousness, altered mental status-uncertain etiology. Troponin has been negative. No telemetry events so far. Recommend echocardiogram to reassess ejection fraction and wall motion. Consider outpatient cardiac event monitor to assess arrhythmias. Chronic heart failure with mildly reduced ejection fraction-no significant decompensation. Chronic mild leg edema which is multifactorial. Continue maintenance p.o. Lasix and spironolactone. Continue metoprolol. Echocardiogram to reassess ejection fraction and hemodynamics. Low salt diet. I/O. Daily weight. Fluid restriction. Keep K > 4 and Mg > 2. Hypertension-her blood pressure is mildly elevated. Continue metoprolol and spironolactone. Consider to titrate up on metoprolol for better blood pressure control. Paroxysmal atrial fibrillation-currently in sinus tachycardia. Continue metoprolol and Eliquis. Obstructive sleep apnea-recommend CPAP treatment. Pulmonary hypertension-likely due to morbid obesity, sleep apnea and heart failure. Hyperlipidemia-consider to restart pravastatin. PAD-continue aspirin. Consider statins. Morbid obesity-after acute phase, to discussed diet, exercise and weight loss. Thank you for allowing us to participate in the care of your patient. Please feel free to contact us for any questions or if we can be of further assistance. Sushil Persaud MD, [facility], HARJIND[facility] Liquid Yeast Supervisor, Division of Cardiology [facility] T [facility] - Health History and Physical Notes Date/Time Note Provider Source 2023-03-10 16:30:00 Formatting of this n ote is different from the original. Vascular Surgery Clinic Note Date of Service: 03/10/2023 HISTORY OF PRESENT ILLNESS: 77 year old female with multiple comorbidities as listed below. Recently hospitalized with syncope vs TIA. Found to have right carotid stenosis. Also seen recently with bilateral lower extremity ulcers and being treated with compression and wound care. She continues to have episodes where she finds it difficult to speak for a few seconds and then recovers. PAST MEDICAL HISTORY: Past Medical History: Diagnosis Date Arthritis all over CKD (chronic kidney disease) stage 3, GFR 30-59 ml/min Clotting disorder DVT (deep venous thrombosis) Hyperlipidemia Hypertension Follows with door captain Dr. Fuentes Hypothyroidism Lymphedema Muscle tear 2016 of right knee PAD (peripheral artery disease) Paroxysmal atrial fibrillation Type 2 diabetes mellitus Follows with paleology teacher Dr. Andersen Past Surgical History: Procedure Laterality Date HYSTERECTOMY complete hysterectomy, endometriosis, removed ovaries but small piece was left in on purpose PHACOEMULSIFICATION OF CATARACT WITH INTRAOCULAR LENS IMPLANT Medications: Home Medications: Current Outpatient Medications on File Prior to Visit Medication Sig Dispense Refill traMADoL 50 mg tablet TAKE ONE (1) TABLET(S) BY MOUTH EVERY AT BEDTIME NEEDED FOR PAIN. Indications: chronic pain 60 tablet 0 FUROSEMIDE 40 mg tablet TAKE ONE (1) TABLET BY MOUTH EVERY MORNING AND EVENING. 180 tablet 3 apixaban 5 mg tablet Take 1 tablet by mouth in the morning and 1 tablet in the evening. Indications: history of venous thromboembolism 180 tablet 3 escitalopram oxalate 10 mg tablet Take 1 tablet by mouth in the morning. 90 tablet 3 insulin degludec 100 unit/mL Soln inject 32 Units under the skin in the morning. Morning 20 mL 5 ferrous sulfate 325 mg (65 mg iron) tablet Take 1 tablet by mouth every Tuesday, and Tuesday in the evening. 90 tablet 0 latanoprost (XALATAN) 0.005 % ophthalmic drops Place 1 Drop in both eyes every evening. PREGABALIN 50 mg capsule TAKE ONE (1) CAPSULE(S) BY MOUTH AT BEDTIME. 90 capsule 0 BACLOFEN 10 mg tablet TAKE ONE (1) TABLET(S) BY MOUTH THREE TIMES A DAY NEEDED. MAY MAKE YOU SLEEPY. 90 tablet 3 azelastine 137 mcg (0.1 %) nasal spray Use 1 [place] in each nostril in the morning and 1 [place] in the evening. Use in each nostril as directed 30 mL 11 nystatin (NYSTOP) 100,000 unit/gram powder Apply to area(s) 3 (three) times daily as needed for Rash. 60 g 3 pramipexole 0.75 mg tablet Take 1 tablet by mouth at bedtime. 90 tablet 3 SPIRONOLACTONE 25 mg tablet TAKE ONE (1) TABLET(S) BY MOUTH EVERY DAY. 90 tablet 3 levothyroxine 25 mcg tablet Take 1 tablet by mouth every morning. 90 tablet 3 Non-Adherent Bandage (CURAD NON-STICK PAD) 3 X 4 " Bndg Use as directed 1 Each 3 pantoprazole 40 mg EC tablet Take 1 tablet by mouth in the morning. 90 tablet 3 pravastatin 80 mg tablet Take 1 tablet by mouth at bedtime. 90 tablet 3 BENZONATATE 100 mg capsule TAKE ONE (1) OR TWO (2) CAPSULE(S) BY MOUTH EVERY EIGHT HOURS NEEDED FOR COUGH. 90 capsule 11 traZODone 50 mg tablet Take 1 tablet by mouth at bedtime. 90 tablet 3 metoprolol tartrate 25 mg tablet Take 0.5 tablets by mouth in the morning and 0.5 tablets in the evening. 90 tablet 1 fluticasone propionate 50 mcg/actuation nasal spray Use two sprays in each nostril daily for a week, then use one spray in each nostril daily 16 g 3 melatonin 3 mg tablet Take 1 tablet by mouth at bedtime. mupirocin 2 % ointment Apply to area(s) 3 (three) times daily. As needed 30 g 0 blood sugar diagnostic (ACCU-CHEK PHILLIP) strip Take sugars 3 times a day, DX E11.9 200 Strip 11 polyethylene glycol 3350 17 gram powder Take 1 Packet by mouth daily. 100 Packet 1 Lancets (ACCU-CHEK MULTICLIX LANCET) Misc Use as directed 3 Each 7 Insulin [place], Disposable, (BD INSULIN PEN NEEDLE UF) 29 gauge x 1/2" Ndle Use as directed, once a day, DX:E11.9 100 Each 1 aspirin (ASPIRIN LOW DOSE) 81 mg EC tablet Take 1 tablet by mouth in the morning. No current facility-administered medications on file prior to visit. 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 Tobacco Use Smoking status: Never Passive exposure: Past Smokeless tobacco: Never Tobacco comments: exposed to 2nd hand smoke Substance and Sexual Activity Alcohol use: No Alcohol/week: 0.0 standard drinks of alcohol Drug use: No Social Determinants of Health Financial Resource Strain: Low Risk (06/28/2022) Overall Financial Resource Strain (CARDIA) Difficulty of Paying Living Expenses: Not hard at all Food Insecurity: No Food Insecurity (06/28/2022) Hunger Vital Sign Worried About Running Out of Food in the Last Year: Never true Ran Out of Food in the Last Year: Never true Transportation Needs: No Transportation Needs (06/28/2022) PRAPARE - Transportation Lack of Transportation (Medical): No Lack of Transportation (Non-Medical): No Physical Activity: Insufficiently Active (06/28/2022) Exercise Vital Sign Days of Exercise per Week: 7 days Minutes of Exercise per Session: 20 min Social Connections: Unknown (06/28/2022) Social Connection and Isolation Panel [NHANES] Frequency of Communication with Friends and Family: Never Marital Status: Never Family History Problem Relation Age of Onset Neurological Mother TIAs Colon Cancer Mother and stomach cancer Hypertension Mother Arthritis Mother Hypertension Father Heart Father Arthritis Father Allergies: Allergies Allergen Reactions Losartan Potassium Shortness of Breath and Cough Adhesive Tape-Silicones Rash Ciprofloxacin Unknown - See comments Codeine Hallucinations and Dizziness Erythromycin Unknown - See comments Lisinopril Dizziness and Other - See comments Patient had low blood pressure, elevated Cr per patient Losartan Cough Metformin Unknown - See comments Metronidazole Unknown - See comments Mycins [Macrolide Antibiotics] Rash Penicillin Rash Pentoxifylline Itching and Shortness of Breath Sulfa (Sulfonamide Antibiotics) Nausea and/or Vomiting 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, at rehab, tolerated fine with bendryl Make sure patient is not allergic to Contrast (Iodine): No Physical Exam: BP (!) 150/56 | Pulse 66 | Temp 37 ?C (98.6 ?F) | Resp 18 | Ht 5' 7" (1.702 m) | Wt 260 lb (117.9 kg) | LMP (LMP Unknown) | SpO2 96% | BMI 40.72 kg/m? No acute distress. Alert oriented and cooperative. Chest is clear to auscultation Heart regular Abdomen soft nontender nondistended Bilateral lower extremities hyperemic with compression dressings in place. There are punctate ulcerations to the toes especially on the right side. Modified Loi Score 4 - Moderately severe disability; unable to walk without assistance and unable to attend to own bodily needs without assistance Labs: CBC BMP LIPID PANEL WBC (10*3/?L) Date Value 02/20/2023 12.81 (H) NA (mmol/L) Date Value 02/20/2023 140 CHOL (mg/dL) Date Value 02/21/2023 111 (L) MCV (fL) Date Value 02/20/2023 81.6 K (mmol/L) Date Value 02/20/2023 3.6 LDL CHOL (mg/dL) Date Value 02/21/2023 53 PLT (10*3/?L) Date Value 02/20/2023 229 CL (mmol/L) Date Value 02/20/2023 100 HDL (mg/dL) Date Value 02/21/2023 38 (L) HGB (g/dL) Date Value 02/20/2023 10.1 (L) CO2 TOTAL (mmol/L) Date Value 02/20/2023 26 TRIG (mg/dL) Date Value 02/21/2023 102 HCT (%) Date Value 02/20/2023 31.0 (L) BUN (mg/dL) Date Value 02/20/2023 46 (H) aPTT CREATININE (mg/dL) Date Value 02/20/2023 1.77 (H) APTT Patient (Seconds) Date Value 06/26/2022 30 TYPE AND SCREEN GLUCOSE (mg/dL) Date Value 02/20/2023 86 PT/INR No results found for: "TSABINT" CALCIUM (mg/dL) Date Value 02/20/2023 9.5 No results found for: "PT" INR (no units) Date Value 06/26/2022 1.3 Vascular Labs: Carotid duplex is reviewed. It shows 50 to 69% stenosis of the right ICA Patient previously had lower extremity arterial testing done. She has an WESLEY on the right of 0.5 WESLEY on the left of 0.6 Assessment/Plan Problem #1 -carotid stenosis. Patient recently hospitalized with symptoms concerning for syncope versus transient ischemic attack. She occasionally continues to have difficulty with speech. If the right ICA truly has significant stenosis may need intervention. Not able to do a CTA for the patient due to chronic kidney disease stage III. We will schedule for carotid angiography Problem #2 -peripheral arterial disease. Patient has bilateral lower extremity ulcers she has mixed arterial and venous disease. Recommend bilateral lower extremity angiography with possible interventions. We will schedule all of this at [facility] HOLD APIXIBAN 2 DAY PRIOR TO PROCEDURE [facility] 2023-02-20 23:33:58 Formatting of this n ote is different from the original. [facility] Hospitalist Admission H&P Date of Service: 02/20/2023 CHIEF COMPLAINT: AMS; altered mental status HISTORY OF PRESENT ILLNESS Ivett Bran is a 77 year old female who presents with altered mental status. Patient apparently was very lethargic and difficult to arouse per the caregiver. Once patient was more awake patient did not want to go to the emergency room; however, since patient blood pressure was 90/50 and patient was tachypneic they decided to bring patient into the emergency room for further evaluation. Patient was started on gentle hydration. Patient was also complaining of pain in the hip. Decision was made to get x-rays which were unremarkable. Additional testing has not revealed any significant pathology. Patient will be admitted to the hospital to be worked up for bleeding. PAST MEDICAL HISTORY Past Medical History: Diagnosis Date Arthritis all over CKD (chronic kidney disease) stage 3, GFR 30-59 ml/min Clotting disorder DVT (deep venous thrombosis) Hyperlipidemia Hypertension Follows with door captain Dr. Fuentes Hypothyroidism Lymphedema Muscle tear 2016 of right knee PAD (peripheral artery disease) Paroxysmal atrial fibrillation Type 2 diabetes mellitus Follows with paleology teacher Dr. Andersen PAST SURGICAL HISTORY Past Surgical History: Procedure Laterality Date HYSTERECTOMY complete hysterectomy, endometriosis, removed ovaries but small piece was left in on purpose PHACOEMULSIFICATION OF CATARACT WITH INTRAOCULAR LENS IMPLANT ALLERGIES Allergies Allergen Reactions Losartan Potassium Shortness of Breath and Cough Adhesive Tape-Silicones Rash Ciprofloxacin Unknown - See comments Codeine Hallucinations and Dizziness Erythromycin Unknown - See comments Lisinopril Dizziness and Other - See comments Patient had low blood pressure, elevated Cr per patient Losartan Cough Metformin Unknown - See comments Metronidazole Unknown - See comments Mycins [Macrolide Antibiotics] Rash Penicillin Rash Pentoxifylline Itching and Shortness of Breath Sulfa (Sulfonamide Antibiotics) Nausea and/or Vomiting 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, at rehab, tolerated fine with bendryl MEDICATIONS Current home medication list reviewed: Patient's Medications START taking these medications No medications on file CONTINUE taking these medications which have NOT CHANGED APIXABAN 5 MG TABLET Take 1 tablet by mouth in the morning and 1 tablet in the evening. Indications: history of venous thromboembolism ASPIRIN (ASPIRIN LOW DOSE) 81 MG EC TABLET Take 1 tablet by mouth in the morning. AZELASTINE 137 MCG (0.1 %) NASAL SPRAY Use 1 [place] in each nostril in the morning and 1 [place] in the evening. Use in each nostril as directed BACLOFEN 10 MG TABLET TAKE ONE (1) TABLET(S) BY MOUTH THREE TIMES A DAY NEEDED. MAY MAKE YOU SLEEPY. BENZONATATE 100 MG CAPSULE TAKE ONE (1) OR TWO (2) CAPSULE(S) BY MOUTH EVERY EIGHT HOURS NEEDED FOR COUGH. BLOOD SUGAR DIAGNOSTIC (ACCU-CHEK PHILLIP) STRIP Take sugars 3 times a day, DX E11.9 DOCUSATE 100 MG CAPSULE Take 1 capsule by mouth in the morning and 1 capsule in the evening. ESCITALOPRAM OXALATE 10 MG TABLET Take 1 tablet by mouth in the morning. FERROUS SULFATE 325 MG (65 MG IRON) TABLET Take 1 tablet by mouth every Tuesday, and Tuesday in the evening. FLUTICASONE PROPIONATE 50 MCG/ACTUATION NASAL SPRAY Use two sprays in each nostril daily for a week, then use one spray in each nostril daily FUROSEMIDE 40 MG TABLET TAKE ONE (1) TABLET BY MOUTH EVERY MORNING AND EVENING. INSULIN DEGLUDEC 100 UNIT/ML SOLN inject 32 Units under the skin in the morning. Morning INSULIN NEEDLES, DISPOSABLE, (BD INSULIN PEN NEEDLE UF) 29 GAUGE X 1/2" NDLE Use as directed, once a day, DX:E11.9 LANCETS (ACCU-CHEK MULTICLIX LANCET) [facility] Use as directed LATANOPROST (XALATAN) 0.005 % OPHTHALMIC DROPS Place 1 Drop in both eyes every evening. LEVOTHYROXINE 25 MCG TABLET Take 1 tablet by mouth every morning. MELATONIN 3 MG TABLET Take 1 tablet by mouth at bedtime. METOPROLOL TARTRATE 25 MG TABLET Take 0.5 tablets by mouth in the morning and 0.5 tablets in the evening. MUPIROCIN 2 % OINTMENT Apply to area(s) 3 (three) times daily. As needed NON-ADHERENT BANDAGE (CURAD NON-STICK PAD) 3 X 4 " BNDG Use as directed NYSTATIN (NYSTOP) 100,000 UNIT/GRAM POWDER Apply to area(s) 3 (three) times daily as needed for Rash. PANTOPRAZOLE 40 MG EC TABLET Take 1 tablet by mouth in the morning. POLYETHYLENE GLYCOL 3350 17 GRAM POWDER Take 1 Packet by mouth daily. PRAMIPEXOLE 0.75 MG TABLET Take 1 tablet by mouth at bedtime. PRAVASTATIN 80 MG TABLET Take 1 tablet by mouth at bedtime. PREGABALIN 50 MG CAPSULE Take 1 capsule by mouth in the morning and 1 capsule in the evening. SEMAGLUTIDE (OZEMPIC) 2 MG/DOSE (8 MG/3 ML) PNIJ INJECT TWO (2) MG UNDER THE SKIN ONCE WEEKLY. SPIRONOLACTONE 25 MG TABLET TAKE ONE (1) TABLET(S) BY MOUTH EVERY DAY. TRAMADOL 50 MG TABLET TAKE ONE (1) TABLET(S) BY MOUTH EVERY SIX HOURS NEEDED FOR PAIN. TRAMADOL HCL (TRAMADOL ORAL) Take by mouth. TRAZODONE 50 MG TABLET Take 1 tablet by mouth at bedtime. TRESIBA FLEXTOUCH U-100 100 UNIT/ML (3 ML) INPN INJECT 30 UNIT(S) UNDER THE SKIN EVERY MORNING. START taking Modified Medications as Prescribed No medications on file STOP taking these medications No medications on file FAMILY HISTORY Family History Problem Relation Age of Onset Neurological Mother TIAs Colon Cancer Mother and stomach cancer Hypertension Mother Arthritis Mother Hypertension Father Heart Father Arthritis Father SOCIAL HISTORY Social History Socioeconomic History Marital status: Spouse name: Armand Number of children: 0 Highest education level: Some college, no degree Tobacco Use Smoking status: Never Passive exposure: Past Smokeless tobacco: Never Tobacco comments: exposed to 2nd hand smoke Substance and Sexual Activity Alcohol use: No Alcohol/week: 0.0 standard drinks of alcohol Drug use: No Social Determinants of Health Financial Resource Strain: Low Risk (06/28/2022) Overall Financial Resource Strain (CARDIA) Difficulty of Paying Living Expenses: Not hard at all Food Insecurity: No Food Insecurity (06/28/2022) Hunger Vital Sign Worried About Running Out of Food in the Last Year: Never true Ran Out of Food in the Last Year: Never true Transportation Needs: No Transportation Needs (06/28/2022) PRAPARE - Transportation Lack of Transportation (Medical): No Lack of Transportation (Non-Medical): No Physical Activity: Insufficiently Active (06/28/2022) Exercise Vital Sign Days of Exercise per Week: 7 days Minutes of Exercise per Session: 20 min Social Connections: Unknown (06/28/2022) Social Connection and Isolation Panel [NHANES] Frequency of Communication with Friends and Family: Never Marital Status: Never REVIEW OF SYSTEMS 10 systems negative except per HPI PHYSICAL EXAMINATION BP 138/46 | Pulse 73 | Temp 37.4 ?C (99.4 ?F) (Oral) | Resp 24 | Ht 1.702 m (5' 7") | Wt 118.8 kg (262 lb) | LMP (LMP Unknown) | SpO2 98% | BMI 41.04 kg/m? General: No acute distress HEENT: Normal oral mucosa, anicteric sclerae, NCAT Cardiovascular: RRR Lungs: Symmetric expansion, CTAB Abdomen: Soft, NTND Musculoskeletal: No synovitis, normal muscle mass Genitourinary: Normal Skin: No rash, lesions Neuro: AAO x 2-3, no focal deficits Psych: Normal affect LABS - reviewed pertinent labs as below: CBC BMP PT/INR WBC (10*3/?L) Date Value 02/20/2023 12.81 (H) NA (mmol/L) Date Value 02/20/2023 140 No results found for: "PT" RBC (10*6/?L) Date Value 02/20/2023 3.80 (L) K (mmol/L) Date Value 02/20/2023 3.6 INR (no units) Date Value 06/26/2022 1.3 PLT (10*3/?L) Date Value 02/20/2023 229 CALCIUM (mg/dL) Date Value 02/20/2023 9.5 HGB (g/dL) Date Value 02/20/2023 10.1 (L) CL (mmol/L) Date Value 02/20/2023 100 aPTT HCT (%) Date Value 02/20/2023 31.0 (L) BUN (mg/dL) Date Value 02/20/2023 46 (H) APTT Patient (Seconds) Date Value 06/26/2022 30 CREATININE (mg/dL) Date Value 02/20/2023 1.77 (H) IMAGING - reviewed, pertinent results as below: Hospital Encounter on 02/20/23 XR HIPS 3 VW LEFT Narrative EXAM: XR HIPS 3 VW LEFT HISTORY: Left hip pain, denies fall or injury. COMPARISON: CT abdomen pelvis on 06/26/2022. FINDINGS: Radiographs of the left hip demonstrate no acute fracture or dislocation. Moderate bilateral hip osteoarthrosis is present. Severe vascular calcifications are seen. Impression No acute fracture or dislocation. Moderate hip osteoarthrosis. Preliminary Report Dictated by Resident: Fredrick Ness ASSESSMENT: 1. Altered mental status-patient with altered mental status 2. Osteoarthritis 3. Pelvic wounds; 4. History of hypertension 5. History of proximal atrial fibrillation 6. History of peripheral arterial disease 7. History of type 2 diabetes 8. Patient with a history of hypertension and dyslipidemia for which she follows up with cardiology PLAN: 1. Continue with gentle hydration and work-up for causes of altered mental status including infectious etiology, medication, additional neurologic issues 2. Osteoarthritis. Continue with supportive care 3. Wounds to the pelvic region; continue with wound care 4. History of hypertension; strict blood pressure control and elevated blood pressure as tolerated 5. History of proximal atrial fibrillation; monitor heart rate closely 6. Type 2 diabetes; strict blood sugar control 7. GI DVT prophylaxis DVT prophylaxis: enoxaparin Stress ulcer prophylaxis: pantoprazole Code status: PASSENGER Advanced Care Planning (Z71.89) Above assessment and plan discussed at length with patient, patient expressed full understanding. Questions and concerned addressed. Surrogate decision maker: AT BEDISED Smoking Cessation: (Z71.6) Tobacco user?: NO if yes: Risk discussed: Yes Patient understands and agrees to the patch. Patient does not want to quit and understands the risks Time spent: 5 minutes discussing smoking cessation Patient will require inpatient stay of 2 midnights or more given high risk of morbidity and mortality. [place] [employer]CTORY SUPERINTENDENT was verified during stay Sam Meredith MD T [facility] 2023-02-20 23:30:00 Formatting of this n ote is different from the original. [facility] Hospitalist Admission H&P Date of Service: 02/21/2023 CHIEF COMPLAINT: syncope and collapse HISTORY OF PRESENT ILLNESS Ivett Bran is a 77 year old female who presents with syncope and collapse. Patient has a history of coronary artery disease, atrial fibrillation, along with chronic kidney disease and she has been diagnosed with deep venous thrombosis. She is also been told she has carotid artery disease and was going to need further evaluation per CT imaging according to patient. She states that she has been declining in her health recently. Her strength has diminished and she normally uses a wheelchair to get around. She does use a walker occasionally but that is very rare. She has had some ulcerations of her lower extremity that have developed and she has gotten really weak so she mainly uses her wheelchair to get around. She followed up at [place] and was told that she may have carotid artery disease. Patient also appears to have some peripheral arterial disease. She has some ulcerations on her lower extremities that will need to be addressed and we will get cardiology consultation and arterial Doppler to further evaluate. We will also get a carotid artery Doppler to evaluate for carotid artery disease. Echocardiogram will be pending as well. We will watch her on telemetry for further syncope work-up. We will get wound care and physical therapy to work whether to try to help with wound on the lower extremities and build her strength. She will need at least home health at discharge if not more going forward. She has been admitted for observation, but if we have significant findings on her imaging studies that we will need to move her to an inpatient hospitalization as she has a lot of comorbidities. Patient stated that she was in her normal state of health when she suddenly passed out. She came around when EMS arrived and she advised them to bring her to [facility]. She was initially a little confused but her altered mentation has cleared up. She denies any palpitations or chest pain. She has paresthesias of the upper extremities and lower extremities but there was no knee weakness or significant numbness or tingling that she noted. She denied any incontinence of urine or biting her tongue or any seizure-like activity. As mentioned above she will have further work-up with imaging studies and monitoring on telemetry and consultation with cardiology. PAST MEDICAL HISTORY Past Medical History: Diagnosis Date Arthritis all over CKD (chronic kidney disease) stage 3, GFR 30-59 ml/min Clotting disorder DVT (deep venous thrombosis) Hyperlipidemia Hypertension Follows with door captain Dr. Fuentes Hypothyroidism Lymphedema Muscle tear 2016 of right knee PAD (peripheral artery disease) Paroxysmal atrial fibrillation Type 2 diabetes mellitus Follows with paleology teacher Dr. Andersen PAST SURGICAL HISTORY Past Surgical History: Procedure Laterality Date HYSTERECTOMY complete hysterectomy, endometriosis, removed ovaries but small piece was left in on purpose PHACOEMULSIFICATION OF CATARACT WITH INTRAOCULAR LENS IMPLANT ALLERGIES Allergies Allergen Reactions Losartan Potassium Shortness of Breath and Cough Adhesive Tape-Silicones Rash Ciprofloxacin Unknown - See comments Codeine Hallucinations and Dizziness Erythromycin Unknown - See comments Lisinopril Dizziness and Other - See comments Patient had low blood pressure, elevated Cr per patient Losartan Cough Metformin Unknown - See comments Metronidazole Unknown - See comments Mycins [Macrolide Antibiotics] Rash Penicillin Rash Pentoxifylline Itching and Shortness of Breath Sulfa (Sulfonamide Antibiotics) Nausea and/or Vomiting 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, at rehab, tolerated fine with bendryl MEDICATIONS Current home medication list reviewed: Current Discharge Medication List STOP taking these medications BACLOFEN 10 mg tablet Comments: Reason for Stopping: FUROSEMIDE 40 mg tablet Comments: Reason for Stopping: TRAMADOL 50 mg tablet Comments: Reason for Stopping: azelastine 137 mcg (0.1 %) nasal spray Comments: Reason for Stopping: nystatin (NYSTOP) 100,000 unit/gram powder Comments: Reason for Stopping: apixaban 5 mg tablet Comments: Reason for Stopping: tramadol HCl (TRAMADOL ORAL) Comments: Reason for Stopping: pramipexole 0.75 mg tablet Comments: Reason for Stopping: semaglutide (OZEMPIC) 2 mg/dose (8 mg/3 mL) PnIj Comments: Reason for Stopping: SPIRONOLACTONE 25 mg tablet Comments: Reason for Stopping: levothyroxine 25 mcg tablet Comments: Reason for Stopping: Non-Adherent Bandage (CURAD NON-STICK PAD) 3 X 4 " Bndg Comments: Reason for Stopping: pantoprazole 40 mg EC tablet Comments: Reason for Stopping: TRESIBA FLEXTOUCH U-100 100 unit/mL (3 mL) InPn Comments: Reason for Stopping: pravastatin 80 mg tablet Comments: Reason for Stopping: BENZONATATE 100 mg capsule Comments: Reason for Stopping: escitalopram oxalate 10 mg tablet Comments: Reason for Stopping: insulin degludec 100 unit/mL Soln Comments: Reason for Stopping: pregabalin 50 mg capsule Comments: Reason for Stopping: traZODone 50 mg tablet Comments: Reason for Stopping: metoprolol tartrate 25 mg tablet Comments: Reason for Stopping: fluticasone propionate 50 mcg/actuation nasal spray Comments: Reason for Stopping: melatonin 3 mg tablet Comments: Reason for Stopping: mupirocin 2 % ointment Comments: Reason for Stopping: blood sugar diagnostic (ACCU-CHEK PHILLIP) strip Comments: Reason for Stopping: ferrous sulfate 325 mg (65 mg iron) tablet Comments: Reason for Stopping: polyethylene glycol 3350 17 gram powder Comments: Reason for Stopping: Lancets (ACCU-CHEK MULTICLIX LANCET) Misc Comments: Reason for Stopping: Insulin [place], Disposable, (BD INSULIN PEN NEEDLE UF) 29 gauge x 1/2" Ndle Comments: Reason for Stopping: latanoprost (XALATAN) 0.005 % ophthalmic drops Comments: Reason for Stopping: aspirin (ASPIRIN LOW DOSE) 81 mg EC tablet Comments: Reason for Stopping: FAMILY HISTORY Family History Problem Relation Age of Onset Neurological Mother TIAs Colon Cancer Mother and stomach cancer Hypertension Mother Arthritis Mother Hypertension Father Heart Father Arthritis Father 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 Tobacco Use Smoking status: Never Passive exposure: Past Smokeless tobacco: Never Tobacco comments: exposed to 2nd hand smoke Substance and Sexual Activity Alcohol use: No Alcohol/week: 0.0 standard drinks of alcohol Drug use: No Social Determinants of Health Financial Resource Strain: Low Risk (06/28/2022) Overall Financial Resource Strain (CARDIA) Difficulty of Paying Living Expenses: Not hard at all Food Insecurity: No Food Insecurity (06/28/2022) Hunger Vital Sign Worried About Running Out of Food in the Last Year: Never true Ran Out of Food in the Last Year: Never true Transportation Needs: No Transportation Needs (06/28/2022) PRAPARE - Transportation Lack of Transportation (Medical): No Lack of Transportation (Non-Medical): No Physical Activity: Insufficiently Active (06/28/2022) Exercise Vital Sign Days of Exercise per Week: 7 days Minutes of Exercise per Session: 20 min Social Connections: Unknown (06/28/2022) Social Connection and Isolation Panel [NHANES] Frequency of Communication with Friends and Family: Never Marital Status: Never REVIEW OF SYSTEMS 10 systems negative except per HPI PHYSICAL EXAMINATION BP (!) 151/64 | Pulse 74 | Temp 36.2 ?C (97.1 ?F) | Resp 20 | Ht 1.702 m (5' 7") | Wt 119 kg (262 lb 4.8 oz) | LMP (LMP Unknown) | SpO2 93% | BMI 41.08 kg/m? General: No acute distress HEENT: Normal oral mucosa, anicteric sclerae, NCAT; ? Bruit of the left; Cardiovascular: RRR Lungs: Symmetric expansion, CTAB Abdomen: Soft, NTND Musculoskeletal: No synovitis, normal muscle mass; LE edema Genitourinary: Normal Skin: No rash, lesions of the lower extremity; necrotic wounds Neuro: AAOx3, no focal deficits Psych: Normal affect LABS - reviewed pertinent labs as below: CBC BMP PT/INR WBC (10*3/?L) Date Value 02/20/2023 12.81 (H) NA (mmol/L) Date Value 02/20/2023 140 No results found for: "PT" RBC (10*6/?L) Date Value 02/20/2023 3.80 (L) K (mmol/L) Date Value 02/20/2023 3.6 INR (no units) Date Value 06/26/2022 1.3 PLT (10*3/?L) Date Value 02/20/2023 229 CALCIUM (mg/dL) Date Value 02/20/2023 9.5 HGB (g/dL) Date Value 02/20/2023 10.1 (L) CL (mmol/L) Date Value 02/20/2023 100 aPTT HCT (%) Date Value 02/20/2023 31.0 (L) BUN (mg/dL) Date Value 02/20/2023 46 (H) APTT Patient (Seconds) Date Value 06/26/2022 30 CREATININE (mg/dL) Date Value 02/20/2023 1.77 (H) IMAGING - reviewed, pertinent results as below: Hospital Encounter on 02/20/23 XR HIPS 3 VW LEFT Narrative EXAM: XR HIPS 3 VW LEFT HISTORY: Left hip pain, denies fall or injury. COMPARISON: CT abdomen pelvis on 06/26/2022. FINDINGS: Radiographs of the left hip demonstrate no acute fracture or dislocation. Moderate bilateral hip osteoarthrosis is present. Severe vascular calcifications are seen. Impression No acute fracture or dislocation. Moderate hip osteoarthrosis. Preliminary Report Dictated by Resident: Fredrick Ness I, Conrelia Rodriguez MD., have reviewed this study and agree with the above report. ASSESSMENT: 1. Syncope and collapse 2. Peripheral arterial disease 3. History of DVT 4. History of atrial fibrillation 5. History of hypothyroidism 6. Type 2 diabetes 7. History of hypertension 8. History of osteoarthritis PLAN: 1. Syncope and collapse; monitor on telemetry and get a carotid Doppler and echocardiogram. Continue with arterial Doppler as well. This will further evaluate her peripheral arterial disease. We will continue with wound care and also get physical therapy to evaluate the patient. 2. History of DVT continue with Eliquis 3. History of atrial fibrillation; continue with beta-kota therapy 4. History of hypothyroidism continue with levothyroxine 5. History of type 2 diabetes continue Lantus and monitoring blood sugars closely 6. History of hypertension continue with Lasix and metoprolol along with Aldactone 7. History of osteoarthritis; continue with muscle relaxant along with neuropathic medications 8. We will need to continue wound care and physical therapy and probably work on a home health or longterm facility placement at the time of discharge. DVT prophylaxis: Eliquis Stress ulcer prophylaxis: PPI Code status: Full Advanced Care Planning (Z71.89) Above assessment and plan discussed at length with patient, patient expressed full understanding. Questions and concerned addressed. Surrogate decision maker: UNKNOWN Level of care expected after discharge: HOME HEALTH VS. SNF Time spent: 3 minutes discussing the advanced care plan Smoking Cessation: (Z71.6) Tobacco user?: NO Patient will require Observation [place] FACTORY SUPERINTENDENT was verified during stay Sam Meredith MD T [facility] Notes Date/Time Note Provider Source 2024-02-22 09:33:18 Images from the original note were not included. Notes: 12/22/23 Last Refilled: [facility] - [place], [place] - [address] [place] [address] Recent Visits Date Type Provider Dept 01/31/24 Office Visit Brian Israel MD [facility] 12/27/23 Office Visit Brian Israel MD [facility] 11/11/23 Office Visit Brian Israel MD [facility] 07/08/23 Office Visit Brian Israel MD [facility] 06/06/23 Office Visit Nehal Titus FNP [facility] 05/05/23 Office Visit Brian Israel MD [facility] 03/08/23 Office Visit Brian Israel MD [facility] 01/18/23 Office Visit Brian Israel MD [facility] 12/09/22 Office Visit Brian Israel MD [facility] 09/28/22 Office Visit Brian Israel MD [facility] Showing recent visits within past 540 days with a meds authorizing provider and meeting all other requirements Future Appointments Date Type Provider Dept 03/13/24 Appointment Brian Israel MD [facility] Showing future appointments within next 150 days with a meds authorizing provider and meeting all other requirements Name from pharmacy: Baclofen 10mg Tablet Will file in chart as: BACLOFEN 10 mg tablet Sig: TAKE ONE (1) TABLET(S) BY MOUTH THREE TIMES A DAY NEEDED FOR RESTLESS LEGS PAIN. Disp: 90 tablet (Pharmacy requested: 90 Each) Refills: 1 (Pharmacy requested: Not specified) Start: 02/22/2024 Class: eRX For: Restless leg syndrome, Chronic deep vein thrombosis (DVT) of proximal vein of right lower extremity Last ordered: 2 months ago (12/22/2023) by Brian Israel MD Last refill: 01/20/2024 Rx #: [id number] Provider Review Required [id number]/22/2024 06:40 AM Protocol Details This refill cannot be delegated Valid encounter within last 12 months To be filled at: [facility] [address] Sirena Galaviz MA [facility] 2024-02-15 09:11:01 Spoke with Candice Taylor. Will fax surgery clearance for Dr. Soares Evita Blanchard MA [facility] 2024-02-10 09:18:15 Candice Taylor dental requesting clearance to hold blood thinners for planned extractions. [facility] Ph. [phone] Fx. [phone] Early, "Please note patient taking Plavix from the vascular standpoint. Would recommend getting vascular surgery clearance also to stopping the Plavix perioperatively." [facility] 2024-02-10 09:08:06 Discussed recommendations with patient she verbalized understanding via teach back. Faxed Dr. Early's note to [place] [facility]. Message sent to vascular regarding holding Plavix. [facility] 2024-02-09 21:49:46 Last office note updated. Please fax. Please let the patient know that when she is not on both aspirin/Plavix, she needs to take aspirin 81 mg perioperatively. She also needs to reach out to vascular surgery regarding the clearance to stop the Plavix. Addendum 02/09/2024 Request for dental extraction From the cardiac standpoint patient may undergo the above procedure under moderate risk category. Recommended to continue taking the aspirin [when patient not taking Plavix/Eliquis] perioperative without any interruption. Patient may hold off the Plavix at least 5-7 days before the procedure and to be restarted back as soon as possible at discretion of the procedure performing physician once adequate hemostasis is obtained. Patient may hold off the Eliquis at least 2-3 days before the procedure and to be restarted back as soon as possible at discretion of the procedure performing physician once adequate hemostasis is obtained. Please note patient taking Plavix from the vascular standpoint. Would recommend getting vascular surgery clearance also to stopping the Plavix perioperatively. Albert Early MD 02/09/2024 9:46 PM Rod Finisher, Division of Cardiology [facility] [employer] 2024-02-09 13:13:42 Fax form received. Placed in MDs inbox folder for chart review. Too Souza MA [facility] 2024-02-09 11:01:35 Images from the original note were not included. Notes: 09/28/23 Last Refilled: [facility] - [address] AT [address] Recent Visits Date Type Provider Dept 01/31/24 Office Visit Brian Israel MD [facility] 12/27/23 Office Visit Brian Israel MD [facility] 11/11/23 Office Visit Brian Israel MD [facility] 07/08/23 Office Visit Brian Israel MD [facility] 06/06/23 Office Visit Nehal Titus FNP [facility] 05/05/23 Office Visit Brian Israel MD [facility] 03/08/23 Office Visit Brian Israel MD [facility] 01/18/23 Office Visit Brian Israel MD [facility] 12/09/22 Office Visit Brian Israel MD [facility] 09/28/22 Office Visit Brian Israel MD [facility] Showing recent visits within past 540 days with a meds authorizing provider and meeting all other requirements Future Appointments Date Type Provider Dept 03/13/24 Appointment Brian Irsael MD [facility] Showing future appointments within next 150 days with a meds authorizing provider and meeting all other requirements Name from pharmacy: Tresiba FlexTouch Pen 100unit/mL for Inj Will file in chart as: TRESIBA FLEXTOUCH U-100 100 unit/mL (3 mL) InPn Sig: INJECT 32 UNITS UNDER THE SKIN ONCE EVERY MORNING. Disp: 15 mL Refills: 2 (Pharmacy requested: Not specified) Start: 02/09/2024 Class: eRX Non-formulary For: Controlled type 2 diabetes mellitus without complication, with long-term current use of insulin Last ordered: 4 months ago (09/28/2023) by Shahzad Wyatt MD Last refill: 12/26/2023 Rx #: [id number] Endocrinology: Diabetes - Insulins Eaorsm3002/09/2024 06:49 AM Protocol Details Manual review: Staff refilling for [facility], Cr lab not required to refill Cr in normal range and within 360 days Valid encounter within last 12 months HBA1C within 180 days To be filled at: [facility] [address] Sirena Galaviz MA [facility] 2024-02-09 09:49:07 Ivett Bran is a 78 year old female [facility] calling to cardiac clearance for pt to have dental extractions. Pt takes blood thinners. Please advise. Mariely is sending request in today. Please send to [facility] Ph. [phone] Fx. [phone] Steven Bustos [facility] 2024-02-01 15:56:53 Anabella with [facility] is informing the clinic that the patients blood sugar is 311. Patient had a hamburger and onion rings for dinner and she has not taking her insulin today. Insulin was administered during visit. Dileep Frank [facility] 2024-01-30 16:55:49 Images from the original note were not included. Cr not in range Notes: 06/24/23 Last Refilled: [facility] [place] [id number] [address] AT [address] Recent Visits Date Type Provider Dept 12/27/23 Office Visit Brian Israel MD [facility] 11/11/23 Office Visit Brian Israel MD [facility] 07/08/23 Office Visit Brian Israel MD [facility] 06/06/23 Office Visit Nehal Titus FNP [facility] 05/05/23 Office Visit Brian Israel MD [facility] 03/08/23 Office Visit Brian Israel MD [facility] 01/18/23 Office Visit Brian Israel MD [facility] 12/09/22 Office Visit Brian Israel MD [facility] 09/28/22 Office Visit Brian Israel MD [facility] 08/31/22 Office Visit Brian Israel MD [facility] Showing recent visits within past 540 days with a meds authorizing provider and meeting all other requirements Future Appointments Date Type Provider Dept 01/31/24 Appointment Brian Israel MD [facility] Showing future appointments within next 150 days with a meds authorizing provider and meeting all other requirements Name from pharmacy: Furosemide 40mg Tablet Will file in chart as: FUROSEMIDE 40 mg tablet Sig: TAKE ONE (1) TABLET BY MOUTH EVERY MORNING AND EVENING. Disp: 180 tablet (Pharmacy requested: 180 Each) Refills: Not specified Start: 01/29/2024 Class: eRX For: Wound of left lower extremity, initial encounter; Lymphedema of both lower extremities Last ordered: 7 months ago (06/24/2023) by Jamshid Early MD Last refill: 10/28/2023 Rx #: [id number] Cardiovascular: Loop Diuretics Zkgvwl5401/29/2024 06:50 AM Protocol Details Cr in normal range and within 180 days Valid encounter within last 12 months K in normal range and within 180 days To be filled at: [facility] - [place], [place] - [address] AT [address] Sirena Galaviz MA [facility] 2024-01-17 15:46:39 TRANSITIONAL CARE MANAGEMENT ASSESSMENT 01/17/2024 Ivett Bran [id number] Ivett Bran is a 78 year old /White female was admitted on 01/16/24 to [facility]. She was discharged on 01/16/24 with discharge disposition of HR- Routine Discharge. Admitting Physician: Discharge Diagnosis: SOB (shortness of breath) Cardiomegaly Acute pulmonary edema No linked episodes TCM Reu-qhbd-hi-face outreach documentation: Future Appointments: Future Appointments Provider Department Dept Phone 01/30/2024 10:30 AM Jamshid Early MD [facility] [phone] 01/31/2024 10:40 AM Brian Israel MD [facility] [phone] 03/08/2024 9:40 AM Xenia Lomeli MD [facility] [phone] 04/10/2024 1:00 PM Jayden Mitchell MD [facility] [phone] Transition CM attempted to contact patient x2. CM left a discreet voicemail explaining purpose of call and call back information. Abigail Ley RN, MSN, MEDSUR-, CCRN, CCM Transitions of Oil Fire Specialist [employer] Ambulatory Referral Coordination Office: [phone] Abigail Ley RN [facility] 2024-01-17 11:24:39 CM LVM to return call. Will attempt again at a later time. [facility] 2024-01-16 20:28:09 Pt given printed and verbal discharge instructions regarding pulmonary edema Pt verbalized understanding of instructions, pt awake alert oriented, resp reg unlabored, skin w/d, color appropriate for race, moves all ext well,pt encouraged to follow up with pcp Advised to seek medical attention for new/prolonged/worsening of symptoms No adverse reaction to meds given in ER noted upon discharge PIV d'cd, dressing to site, catheter in tact. Awake, alert oriented, resp reg unlabored, skin w/d, pt with [facility] on stretcher, in no apparent distress, Mitesh Warner RN [facility] 2024-01-16 18:54:57 Nurse Report Report given to CHRISSY Warner. Chief complaint, assessment findings, infusion verify and orders reviewed. Plan of care discussed with both nurses. Lucia Rodriguez RN Lucia Rodriguez RN [facility] 2024-01-16 15:52:55 Pt arrived via pov c/o SOB per daughter in law that started today. Pt is currently on antibiotics for UTI. Ann Hernadez RN [facility] 2023-12-22 13:40:29 Sent. T [facility] 2023-12-22 11:10:39 Please review and refill if appropriate T [facility] 2023-12-22 10:01:39 Copied from [facility] #[id number]. Topic: Clinical - Order >> Dec 22, 2023 10:00 AM Patient Naturopathic Oncology Provider wrote: Pts caregiver Flora is calling and states the pt is needing a refill on her baclofen 10 mg. Flora says the pt is out of this med and [facility] has been trying to get it filled since 12-08-23. Please advise on refill, thank you! [facility] - [place], [place] - [address] AT [facility] [address] [facility] [id number] Giorgi Escalante [facility] 2023-12-09 10:35:10 Last Refilled: metoprolol tartrate 25 mg tablet 90 tablet 1 07/20/2022 -- No Sig: Take 0.5 tablets by mouth in the morning and 0.5 tablets in the evening. Sent to pharmacy as: metoprolol tartrate 25 mg tablet (LOPRESSOR) Class: eRX Route: Oral Order: [id number] Date/Time Signed: 07/20/2022 15:39 E-Prescribing Status: Receipt confirmed by pharmacy (07/20/2022 3:39 PM DIRECTOR OF QUALITY CONTROL) Recent Visits Date Type Provider Dept 11/11/23 Office Visit Brian Israel MD [facility] 09/21/23 Office Visit Jamshid Early MD [facility] 07/13/23 Office Visit David Lima MD [facility] Cardiology Faculty 07/08/23 Office Visit Brian Israel MD [facility] 06/22/23 Office Visit Jamshid Early MD [facility] 06/06/23 Office Visit Nehal Titus FNP [facility] 05/05/23 Office Visit Brian Israel MD [facility] 04/27/23 Office Visit David Lima MD [facility] Cardiology Faculty 03/08/23 Office Visit Brian Israel MD [facility] 01/18/23 Office Visit Brian Israel MD [facility] Showing recent visits within past 540 days with a meds authorizing provider and meeting all other requirements Future Appointments Date Type Provider Dept 12/16/23 Appointment Jamshid Early MD [facility] 12/27/23 Appointment Brian Israel MD [facility] Showing future appointments within next 150 days with a meds authorizing provider and meeting all other requirements Olga Warner [facility] 2023-12-07 07:03:02 Notes: Please Review Last Refilled: INSULIN ASPART U-100 100 unit/mL (3 mL) injection 15 mL 0 11/01/2023 -- No Sig: INJECT THREE TIMES DAILY BEFORE MEALS 12 UNITS AT BREAKFAST, 14 UNITS AT LUNCH, AND 14 UNITS AT SUPPER. IF GLUCOSE > 150, SLIDING SCALE UTILIZED. Sent to pharmacy as: insulin aspart (U-100) 100 unit/mL (3 mL) subcutaneous pen (NOVOLOG FLEXPEN U-100) Class: eRX Notes to Pharmacy: Sending Erx refill request Order: [id number] Date/Time Signed: 11/01/2023 12:32 E-Prescribing Status: Receipt confirmed by pharmacy (11/01/2023 12:32 PM CDT) Recent Visits Date Type Provider Dept 11/11/23 Office Visit Brian Israel MD [facility] 07/08/23 Office Visit Brian Israel MD [facility] 06/06/23 Office Visit Nehal Titus FNP [facility] 05/05/23 Office Visit Brian Israel MD [facility] 03/08/23 Office Visit Brian Israel MD [facility] 01/18/23 Office Visit Brian Israel MD [facility] 12/09/22 Office Visit Brian Israel MD [facility] 09/28/22 Office Visit Brian Israel MD [facility] 08/31/22 Office Visit Brian Israel MD [facility] 07/30/22 Office Visit Brian Israel MD [facility] Showing recent visits within past 540 days with a meds authorizing provider and meeting all other requirements Future Appointments Date Type Provider Dept 12/27/23 Appointment Brian Israel MD Ang-Db [facility] Fam Med Showing future appointments within next 150 days with a meds authorizing provider and meeting all other requirements Olga Warner [facility] 2023-12-06 14:41:51 Spoke with she doesn't know if she wants to go to ER, will make a decision in a few days and let us know. Olga Warner [facility] 2023-12-06 13:26:04 I recommend ER evaluation. She has a complicated medical history, and I am worried she did not improve on the antibiotics I sent. I want her to be evaluated thoroughly and quickly. Best, Dr. Israel [facility] 2023-12-06 12:39:31 Copied from [facility] #[id number]. Topic: Clinical - Medical Advice >> Dec 06, 2023 12:38 PM Patient Naturopathic Oncology Provider wrote: Ivett Bran is a 77 year old [facility]; she is concerned because Pt still is not feeling any better. Please advise. Essence Marino [facility] 2023-12-05 16:45:21 Please review and advise. [facility] 2023-12-05 13:30:29 Copied from [facility] #[id number]. Topic: Clinical - Medical Advice >> Dec 05, 2023 1:28 PM Patient Naturopathic Oncology Provider wrote: Lilliam with [facility] is notifying the clinic that the patient finished Antibiotics for bladder infection. Patient is nauseated and throwing up and is not feeling well. Urine is yellow and cloudy and has an odor. Please advise. Lilliam is not with the patient. Dileep Frank [facility] 2023-11-21 15:30:35 Called pt, said she was nauseated prior to abx. Sent Zofran. Will add on to clinic day tomorrow if she feels worse. [facility] 2023-11-21 14:51:25 Please review and advise. Martha Espinosa RN [facility] 2023-11-21 13:20:55 Copied from [facility] #[id number]. Topic: Clinical - Medical Advice >> November 21, 2023 1:19 PM Patient Naturopathic Oncology Provider wrote: Lilliam with [facility] states the pt has been throwing up and feeling nauseous do to the antibiotics for her UTI. Lilliam is asking if something can be called into the pharmacy to help, please advise. Lilliam said to call the pt back at: [phone] [facility] [address] AT [facility] [address] [facility] [address] Giorgi Escalante [facility] 2023-11-14 12:00:00 Patient presented with specimen for drop-off and was identified by and name. Collection information/ total volume were documented accordingly. The following specimens were sent to [facility] laboratories per lab order on 11/14/2023 : 24 hour urine Random urine 1 Stool Swab Other T [facility] 2023-11-11 12:15:00 Images from the original note were not included. Venipuncture collection performed by clean technique on the left anticubitus. Total of 1 attempts were made. Slight pressure and a bandage/dressing were applied to the site(s). The patient experienced no complications. The following specimens were processed according to instructions and sent to [facility] laboratories per lab order on 11/11/2023 : LT BLUE SST 1 RED LAV PPT DK GREEN (LiHep) DK GREEN (SodH) DERAS DK BLUE (K2) DK BLUE (S) ACD Blood Culture NIPT/NTD Patient has been identified by and name and was provided with cup, antiseptic towelette, and clean catch instructions. Patient unable to void. Patient states she will try to collect specimen and drop off at Main lab on Tuesday. Unpreserved Urine Culture Aptima tube Other urine T [facility] 2023-11-11 10:40:00 Addended by: BRIAN ISRAEL on: 11/11/2023 02:16 PM Modules accepted: Level of Service [facility] 2023-11-08 08:37:03 FYI Arcelia Dumont LVN [facility] 2023-11-07 14:30:08 Ivett Bran is a 77 year old female and Mare a nurse with [facility] is calling about the pts blood sugar levels over the weekend while epic application coordinator for Wound Care. Mare stated that the pts Blood sugar on Tuesday was at 344 and on Tuesday was at 490. Mare gave the pt insulin on Tuesday, but not Saturday due to the pt not remembering if she took insulin that day or not. Mare mentioned that the care givers stated she has been not remembering to take her insulin and has been non compliant when they remind her about taking the insulin. Anna Guadarrama [facility] 2023-11-03 15:33:19 Images from the original note were not included. Date of ED Visit? 10/31/2023 High ED Utilization (number of ER visits over past 90 days)? 1 ED Diagnosis? Blister of leg Diabetic ulcer of toe of right foot associated with type 2 diabetes mellitus, unspecified ulcer stage Controlled type 2 diabetes mellitus without complication, with long-term current use of insulin PAD (peripheral artery disease) Essential hypertension Avoidable ED Visit? no Name of PCP? Brian Israel MD Date of Last Office Visit? 07/29/2023 Do you have any questions about your d/c instructions? no Are you having any symptoms? no Do you have all of your medications? N\\A Have you scheduled a follow up appointment with your physician? Yes Do you need assistance with scheduling a follow up appointment?N\\A Do you have transportation to your appointment? yes - caregiver will take her Do you have any questions or concerns? no VIPIN Angulo, RN, CCRN Oil Fire Specialist, Transitions of Care [email or web address] Y Black RN [facility] 2023-11-01 13:46:17 Corrected and resent Y Solomon LVN [facility] 2023-11-01 07:27:20 Notes: Please Review Last Refilled: Disp Refills Start End CELSO insulin aspart U-100 (NOVOLOG FLEXPEN U-100 INSULIN) 100 unit/mL (3 mL) injection 15 mL 0 09/05/2023 -- No Sig: INJECT THREE TIMES DAILY BEFORE MEALS 12 UNITS AT BREAKFAST, 14 UNITS AT LUNCH, AND 14 UNITS AT SUPPER. IF GLUCOSE > 150, SLIDING SCALE UTILIZED. Sent to pharmacy as: insulin aspart (U-100) 100 unit/mL (3 mL) subcutaneous pen (NovoLOG Flexpen U-100 Insulin) Class: eRX Notes to Pharmacy: Sending Erx refill request Order: [id number] Date/Time Signed: 09/05/2023 09:30 E-Prescribing Status: Receipt confirmed by pharmacy (09/05/2023 9:30 AM DIRECTOR OF QUALITY CONTROL Recent Visits Date Type Provider Dept 07/08/23 Office Visit Brian Israel MD [facility] 06/06/23 Office Visit Nehal Titus FNP [facility] 05/05/23 Office Visit Brian Israel MD [facility] 03/08/23 Office Visit Brian Israel MD [facility] 01/18/23 Office Visit Brian Israel MD [facility] 12/09/22 Office Visit Brian Israel MD [facility] 09/28/22 Office Visit Brian Israel MD [facility] 08/31/22 Office Visit Brian Israel MD [facility] 07/30/22 Office Visit rBian Israel MD [facility] 07/15/22 Office Visit Brian Israel MD [facility] Showing recent visits within past 540 days with a meds authorizing provider and meeting all other requirements Future Appointments Date Type Provider Dept 11/11/23 Appointment Brian Israel MD [facility] Showing future appointments within next 150 days with a meds authorizing provider and meeting all other requirements Olga Warner [facility] 2023-10-30 17:38:55 Paatient dc home. Follow up with pcp. Verbalized understanding. Signed paper work for dc. Colten Miranda RN [facility] 2023-10-30 14:33:31 Patient arrived in wheelchair with caregiver c/o of a diabetic leg wound. Home health nurse came out today to do wound care and the nurse di not like the coloring of the wound per patient and wanted her to get the wound checked out. Lucia Rodriguez RN [facility] 2023-10-28 09:20:55 Ivett Bran is a 77 year old [place] /[facility] Pharmacy is calling to request clarification for semaglutide (OZEMPIC) 2 mg/dose (8 mg/3 mL) PnIj, Pharmacist states, prescription was sent without directions, Please advise [facility] [address] Anbaella Almonte [facility] 2023-10-27 11:45:31 Ivett Bran is a 77 year old female [facility] pharmacy is calling for directions on Ozempic. Please call [facility] [address] Ana Kelly [facility] 2023-10-27 09:59:32 RATNA 05/23/23 NOV 11/22/23 Patient's dose increased by Dr. Haynes on 07/12/23 to 2mg weekly. Yolanda Solomon LVN [facility] 2023-10-27 07:45:12 Images from the original note were not included. Requested Renewals Name from pharmacy: Pregabalin 50mg Capsule Will file in chart as: PREGABALIN 50 mg capsule Sig: TAKE ONE (1) CAPSULE(S) BY MOUTH EVERY NIGHT AT BEDTIME. Disp: 90 capsule (Pharmacy requested: 90 Each) Refills: Not specified Start: 10/26/2023 Class: eRX For: Lymphedema of both lower extremities; Wound of left lower extremity, initial encounter To pharmacy: Sending Erx refill request Last ordered: 4 months ago (06/23/2023) by Brian Israel MD Last refill: 07/04/2023 Rx #: [id number] Controlled Substance Pyvivp3610/26/2023 07:26 PM Protocol Details Valid encounter within last 3 months This refill cannot be delegated Pain agreement on file To be filled at: [facility] [address] AT [address] Recent Visits Date Type Provider Dept 07/08/23 Office Visit Brian Israel MD [facility] 06/06/23 Office Visit Nehal Titus FNP [facility] 05/05/23 Office Visit Brian Israel MD [facility] 03/08/23 Office Visit Brian Israel MD [facility] 01/18/23 Office Visit Brian Israel MD [facility] 12/09/22 Office Visit Brian Israel MD [facility] 09/28/22 Office Visit Brian Israel MD [facility] 08/31/22 Office Visit Brian Israel MD [facility] 07/30/22 Office Visit Brian Israel MD [facility] 07/15/22 Office Visit Brian Israel MD [facility] Showing recent visits within past 540 days with a meds authorizing provider and meeting all other requirements Future Appointments Date Type Provider Dept 11/11/23 Appointment Brian Israel MD [facility] Showing future appointments within next 150 days with a meds authorizing provider and meeting all other requirements Arcelia Dumont LVN [facility] 2023-10-14 13:16:06 Ivett Bran is a 77 year old female patient had a fall/stumble earlier in the week had a tear in skin on elbow, but wound is fine already scabbed over. Please call with any questions. [phone] Talia Garcia [facility] 2023-10-11 14:27:36 Medical records request form received from [employer] faxed to HIM to process Zeenat Bobo [facility] 2023-10-10 11:30:[address] in provider Nehal Titus box. Singed and faxed over today Sirena Galaviz MA [facility] 2023-09-28 08:23:06 Images from the original note were not included. Requested Renewals Name from pharmacy: Tresiba FlexTouch Pen 100unit/mL for Inj Will file in chart as: TRESIBA FLEXTOUCH U-100 100 unit/mL (3 mL) InPn Sig: INJECT 32 UNITS UNDER THE SKIN ONCE EVERY MORNING. Disp: 15 mL Refills: 2 (Pharmacy requested: Not specified) Start: 09/28/2023 Class: eRX Non-formulary For: Controlled type 2 diabetes mellitus without complication, with long-term current use of insulin To pharmacy: Sending Erx refill request Last ordered: 4 months ago (05/17/2023) by Brian Israel MD Last refill: 08/15/2023 Rx #: [id number] Endocrinology: Diabetes - Insulins Ljfmzi9909/28/2023 06:43 AM Protocol Details Manual review: Staff refilling for [facility], Cr lab not required to refill Cr in normal range and within 360 days Valid encounter within last 12 months HBA1C within 180 days To be filled at: [facility] - [place], [place] - [address] CREATININE (mg/dL) Date Value 09/21/2023 1.28 (H) Recent Visits Date Type Provider Dept 07/08/23 Office Visit Brian Israel MD [facility] 06/06/23 Office Visit Nehal Titus FNP [facility] 05/05/23 Office Visit Brian Israel MD [facility] 03/08/23 Office Visit Brian Israel MD [facility] 01/18/23 Office Visit Brian Israel MD [facility] 12/09/22 Office Visit Brian Israel MD [facility] 09/28/22 Office Visit Brain Israel MD [facility] 08/31/22 Office Visit Brian Israel MD [facility] 07/30/22 Office Visit Brian Israel MD [facility] 07/15/22 Office Visit Brian Israel MD [facility] Showing recent visits within past 540 days with a meds authorizing provider and meeting all other requirements Future Appointments Date Type Provider Dept 11/11/23 Appointment Brian Israel MD [facility] Showing future appointments within next 150 days with a meds authorizing provider and meeting all other requirements Arcelia Dumont LVN [facility] 2023-09-23 11:41:50 Looks like she is on 40 mg? Has dose been changed? Shahzad Wyatt MD -FAMILY MEDICINE STAFF [facility] 2023-09-22 13:41:22 Images from the original note were not included. Requested Renewals Name from pharmacy: Pravastatin 80mg Tablet Will file in chart as: PRAVASTATIN 80 mg tablet The original prescription was discontinued on 04/19/2023 by Shahzad Pro NP. Renewing this prescription may not be appropriate. Sig: TAKE ONE (1) TABLET(S) BY MOUTH AT BEDTIME. Disp: 90 tablet (Pharmacy requested: 90 Each) Refills: 3 (Pharmacy requested: Not specified) Start: 09/22/2023 Class: eRX For: Wound of left lower extremity, initial encounter; Lymphedema of both lower extremities Last ordered: 1 year ago (09/06/2022) by Brian Israel MD Last refill: 02/25/2023 Rx #: [id number] Cardiovascular: Antilipid - HMG-CoA Reductase Inhibitors Bckwly1809/22/2023 01:23 PM Protocol Details Valid encounter within last 12 months Total Cholesterol within 360 days LDL within 360 days HDL within 360 days Triglycerides within 360 days AST in normal range and within 360 days ALT in normal range and within 360 days To be filled at: [facility] [place], [place] - [address] [place] [address] AT [address] Recent Visits Date Type Provider Dept 07/08/23 Office Visit Brian Israel MD [facility] 06/06/23 Office Visit Nehal Titus FNP [facility] 05/05/23 Office Visit Brian Israel MD [facility] 03/08/23 Office Visit Brian Israel MD [facility] 01/18/23 Office Visit Brian Israel MD [facility] 12/09/22 Office Visit Brian Israel MD [facility] 09/28/22 Office Visit Brian Israel MD [facility] 08/31/22 Office Visit Brian Israel MD [facility] 07/30/22 Office Visit Brian Israel MD [facility] 07/15/22 Office Visit Brian Israel MD [facility] Showing recent visits within past 540 days with a meds authorizing provider and meeting all other requirements Future Appointments Date Type Provider Dept 11/11/23 Appointment Kley, Brian, MD [facility] Showing future appointments within next 150 days with a meds authorizing provider and meeting all other requirements Arcelia Dumont LVN [facility] 2023-09-21 10:35:05 Contacted migdalia to have form refaxed will place in provider bx once received [facility] 2023-09-21 10:30:00 Images from the original note were not included. Venipuncture collection performed by clean technique on the left anticubitus. Total of 1 attempts were made. Slight pressure and a bandage/dressing were applied to the site(s). The patient experienced no complications. The following specimens were processed according to instructions and sent to [facility] laboratories per lab order on 09/21/2023 : LT BLUE SST 1 RED LAV 1 PPT DK GREEN (LiHep) DK GREEN (SodH) DERAS DK BLUE (K2) DK BLUE (S) ACD Blood Culture NIPT/NTD Early orders per pt request [facility] 2023-09-20 09:57:33 Attempted to contact migdalia no answer lmtcb [facility] 2023-09-15 11:47:23 Ivett Bran is a 77 year old female and Migdalia from [facility] is calling to check on order request. Was sent through Fax on 09/07/23 and has not received any updates on status please call to confirm if received and being completed. - States that it is time sensitive for the orders Anna Guadarrama [facility] 2023-09-12 14:54:04 Migdalia with [employer] is checking the status of a fax sent on 09/07/23 and to please send fax back she said as soon as possible. Norma Berrios [facility] 2023-09-07 15:23:18 Ivett Bran is a 77 year old female Migdalia with Lab service called because she faxed over a lab order this morning and wanted to know if the clinic received it. CTOR OF QUALITY CONTROL Shayy Muñoz [facility] 2023-09-02 15:05:10 Spoke [facility] nurse and advised her per covering provider Razia Garvin patient would need to be seen in office to be treated. She verbalized understanding and will let the patient know. Arcelia Dumont LVN 09/02/2023 3:06 PM CTOR OF QUALITY CONTROL Arcelia Dumont [employer] [facility] 2023-09-02 14:57:54 Pts provider is out of office. R/t pts hx and vomiting all night , its best she be evaluated to see what's causing her to vomit. [facility] 2023-09-02 14:53:47 Can you please review EET Dumont [employer] [facility] 2023-09-02 14:41:15 Ivett Bran is a 77 year old female Anabella called back to see the status of the medication. The pt needs something for vomiting and she has chest congestion. The pt is in a wheel chair and can not come into the clinic. Rsp 09/01 CTOR OF QUALITY CONTROL Chris Fu [facility] 2023-09-02 14:02:36 Please review and advise. Recent Visits Date Type Provider Dept 07/08/23 Office Visit Brian Israel MD [facility] 06/06/23 Office Visit Nehal Titus FNP [facility] 05/05/23 Office Visit Brian Israel MD [facility] 03/08/23 Office Visit Brian Israel MD [facility] 01/18/23 Office Visit Brian Israel MD [facility] 12/09/22 Office Visit Brian Israel MD [facility] 09/28/22 Office Visit Brian Israel MD [facility] 08/31/22 Office Visit Brian Israel MD [facility] 07/30/22 Office Visit Brian Israel MD [facility] 07/15/22 Office Visit Brian Israel MD [facility] Showing recent visits within past 540 days with a meds authorizing provider and meeting all other requirements Future Appointments Date Type Provider Dept 11/11/23 Appointment Brian Israel MD [facility] Showing future appointments within next 150 days with a meds authorizing provider and meeting all other requirements [facility] 2023-09-02 13:55:15 Ivett Bran is a 77 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 She is requesting for PCP to prescribe something to help her stomach. If there are any questions please call [phone]. 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 Patient uses pure wick Treatment so far: none Effect on ADL's: n/a LMP: n/a Pre-existing condition / Immunocompromised: Frequent UTI Ivett Bran is a 77 year old female Caregiver calling seeking a prescription for antibiotic for frequent UTI's. Will forward to clinic for to assistance. Advised patient to go to the Urgent Care if symptoms worsen Simba ROBBINSN, RN [facility] Access Center Reason for Disposition Bad or foul-smelling urine Protocols used: Urinary [id number] [facility] 2023-08-24 09:19:00 Needs to see someone [facility] 2023-08-24 09:19:00 OV required [employer]OR OF QUALITY CONTROL [facility]-FAMILY MEDICINE STAFF [facility] 2023-08-24 09:19:00 Notified caregiver office visit is required as Dr. Israel is out on maternity leave. She has active standing orders for UA and UC as patient has recurrent infections and is bed bound. They will bring by sample tomorrow. Arcelia Dumont LVN 08/24/2023 1:28 PM [facility] Arcelia Dumont LVN [facility] 2023-08-23 10:32:06 Images from the original note were not included. Notified caregiver Flora Early: Jamshid Early MD P Cardiology Nurse Short paroxysmal A-fib episodes noted. Baseline artifact noted in the event monitor. No other significant arrhythmias. Follow-up with EP as already scheduled this month. Verbal understanding. EET Acuna MA [facility] 2023-08-22 09:27:04 Medication refilled per policy: Last office visit: 07/08/23 Next office visit: 11/11/23 Requested Prescriptions Pending Prescriptions Disp Refills ESCITALOPRAM OXALATE 10 mg tablet [Pharmacy Med Name: Escitalopram 10mg Tablet] 90 tablet 3 Sig: TAKE ONE (1) TABLET(S) BY MOUTH EVERY MORNING. Last fill date: 08/31/22 Notes: Depression, unspecified depression type [facility] 2023-08-05 15:37:51 Attempted to contact patient no answer contacted pharmacy who stated she picked it up 07/14/2023 [facility] 2023-07-21 13:04:51 Dr. Haynes ordered it 07/12/23 to [facility] in [place]. Please verify w/ patient/pharmacy. Dr. Lindy Whyte [facility] 2023-07-20 11:03:16 Patient requesting refill on Ozempic 2mg/dose 8mg3ml pen. [facility] 2023-07-18 12:21:23 Recent Visits Date Type Provider Dept 07/08/23 Office Visit Brian Israel MD [facility] 06/06/23 Office Visit Nehal Titus FNP [facility] 05/05/23 Office Visit Brian Israel MD [facility] 03/08/23 Office Visit Brian Israel MD [facility] 01/18/23 Office Visit Brian Israel MD [facility] 12/09/22 Office Visit Brian Israel MD [facility] 09/28/22 Office Visit Brian Israel MD [facility] 08/31/22 Office Visit Brian Israel MD [facility] 07/30/22 Office Visit Brian Israel MD [facility] 07/15/22 Office Visit Brian Israel MD [facility] Showing recent visits within past 540 days with a meds authorizing provider and meeting all other requirements Future Appointments Date Type Provider Dept 11/11/23 Appointment Brian Israel MD [facility] Showing future appointments within next 150 days with a meds authorizing provider and meeting all other requirements Last refill was Disp Refills Start End CELSO traZODone 50 mg tablet 90 tablet 3 07/30/2022 -- -- Sig: Take 1 tablet by mouth at bedtime. Sent to pharmacy as: traZODone 50 mg tablet (DESYREL) [facility] Dara Delgado MA [facility] 2023-07-14 15:44:11 Called patient to inquire how she is feeling. Stated that she has been having issues keeping the monitor stuck to her, and is having skin irritation. Reminded to call the number on the inside of the box to have [facility] send some hypoallergenic patches to provide better comfort, no c/o dizziness or lightheadedness CTOR OF QUALITY CONTROL Anita Gallagher RN [facility] 2023-07-14 12:49:54 Preventice strips reviewed. Noted to have atrial fibrillation with controlled ventricular response. Will continue to monitor. [facility] 2023-07-14 08:06:27 Received monitor readings from [employer] will put into Dr. Early folder for review. EET Bob MA [facility] 2023-07-13 16:26:17 PA submitted to [facility]. Awaiting response EET Solomon LVN [facility] 2023-07-13 12:17:33 [facility] called to notify that at 1028 AM today patient went into A-fib 70 bpm as noted on the event monitor Stated that there is some artifact noted Routed to Dr Early for advice EET Gallagher RN [facility] 2023-07-13 11:45:53 Images from the original note were not included. EET Ahn [facility] 2023-07-13 08:30:00 30-day event monitor applied to patient, tolerated well. Baseline tracing sent/confirmed by company. Instructed on recording manual events, wear, care and return of device; understanding verbalized via teach back. Monitor to be returned to ([facility]) on 08/13/23. CTOR OF QUALITY CONTROL Anita Gallagher RN [facility] 2023-07-12 13:34:06 RATNA 05/23/23 NOV 11/22/23 Per RATNA note: Yolanda Solomon LVN [facility] 2023-07-11 16:39:08 Images from the original note were not included. Last Refilled: 01/18/23 Notes: [facility] [place] - [place], [place] - [address] [place] [address] AT [address] Recent Visits Date Type Provider Dept 07/08/23 Office Visit Brian Israel MD [facility] 06/06/23 Office Visit Nehal Titus FNP [facility] 05/05/23 Office Visit Brian Israel MD [facility] 03/08/23 Office Visit Brian Israel MD [facility] 01/18/23 Office Visit Brian Israel MD [facility] 12/09/22 Office Visit Brian Israel MD [facility] 09/28/22 Office Visit Brian Isreal MD [facility] 08/31/22 Office Visit Brian Israel MD [facility] 07/30/22 Office Visit Brian Israel MD [facility] 07/15/22 Office Visit Brian Israel MD [facility] Showing recent visits within past 540 days with a meds authorizing provider and meeting all other requirements Future Appointments Date Type Provider Dept 11/11/23 Appointment Kley, Brian, MD [facility] Showing future appointments within next 150 days with a meds authorizing provider and meeting all other requirements Name from pharmacy: Nystatin 100,000unit/g Top Pwd Will file in chart as: NYSTATIN 100,000 unit/gram powder Sig: APPLY TO AFFECTED AREA THREE TIMES A DAY NEEDED FOR RASH. Disp: 60 g Refills: Not specified Start: 07/11/2023 Class: eRX To pharmacy: Sending Erx refill request Last refill: 01/18/2023 Provider Review Required - nystatin Mdhgko5507/11/2023 04:24 PM Protocol Details This refill cannot be delegated Valid encounter within last 12 months To be filled at: [facility] [place] - [place], [place] - [address] [place] [address] AT [address] [facility] Sirena Galaviz MA [facility] 2023-06-24 12:09:30 Images from the original note were not included. Patient and her caregiver notified of results. She verbalized understanding of results/recommendations via teach back. No further questions or concerns at this time. Jamshid Early MD P Cardiology Nurse Labs dated 06/22/2023 labs done today was reviewed. CBC shows hemoglobin stable at 12.7, platelet count stable at 253. Labs dated potassium stable at 3.9, creatinine elevated 1.6. Improving NT-proBNP noted at 2390. LFTs within normal limits. Recommended to reduce the dose of the Lasix from 40 mg twice daily to 20 mg twice daily. Repeat labs to be done in 2 weeks time. Orders placed. [facility] 2023-06-23 07:45:28 Last Refilled: Disp Refills Start End CELSO PREGABALIN 50 mg capsule 90 capsule 0 03/02/2023 -- No Sig: TAKE ONE (1) CAPSULE(S) BY MOUTH AT BEDTIME. Sent to pharmacy as: pregabalin 50 mg capsule (LYRICA) Class: eRX Notes to Pharmacy: Sending Erx refill request Order: [id number] Date/Time Signed: 03/02/2023 13:02 E-Prescribing Status: Receipt confirmed by pharmacy (03/02/2023 1:02 PM CDT) Notes: Recent Visits Date Type Provider Dept 06/06/23 Office Visit Nehal Titus FNP [facility] 05/05/23 Office Visit Brian Israel MD [facility] 03/08/23 Office Visit Brian Israel MD [facility] 01/18/23 Office Visit Brian Israel MD [facility] 12/09/22 Office Visit Brian Israel MD [facility] 09/28/22 Office Visit Brian Israel MD [facility] 08/31/22 Office Visit Brian Israel MD [facility] 07/30/22 Office Visit Brian Israel MD [facility] 07/15/22 Office Visit Brian Israel MD [facility] 06/08/22 Office Visit Brian Israel MD [facility] Showing recent visits within past 540 days with a meds authorizing provider and meeting all other requirements Future Appointments Date Type Provider Dept 07/08/23 Appointment Brian Israel MD [facility] Showing future appointments within next 150 days with a meds authorizing provider and meeting all other requirements [employer]OR OF QUALITY CONTROL Martha Espinosa RN [facility] 2023-06-22 11:00:00 Images from the original note were not included. Venipuncture collection performed by clean technique on the left anticubitus. Total of 1 attempts were made. Slight pressure and a bandage/dressing were applied to the site(s). The patient experienced no complications. The following specimens were processed according to instructions and sent to [facility] laboratories per lab order on 06/22/2023 : LT BLUE SST 1 RED LAV 1 PPT DK GREEN (LiHep) DK GREEN (SodH) DERAS DK BLUE (K2) DK BLUE (S) ACD Blood Culture NIPT/NTD Dr early orders only [facility] 2023-06-22 11:00:00 Labs dated 06/22/2023 labs done today was reviewed. CBC shows hemoglobin stable at 12.7, platelet count stable at 253. Labs dated potassium stable at 3.9, creatinine elevated 1.6. Improving NT-proBNP noted at 2390. LFTs within normal limits. Recommended to reduce the dose of the Lasix from 40 mg twice daily to 20 mg twice daily. Repeat labs to be done in 2 weeks time. Orders placed. [facility] 2023-06-22 11:00:00 Addended by: JAMSHID EARLY on: 06/22/2023 07:48 PM Modules accepted: Orders [facility] 2023-03-22 15:58:52 Formatting of this n ote might be different from the original. Patient seen in office by provider 03/08/2023. Esther Oconnor RN [facility] 2023-03-10 07:57:23 Formatting of this n ote might be different from the original. Received POC from [facility] requesting Provider signature. Placed in Provider box. Amrita Soto [facility] 2023-02-28 10:55:41 Formatting of this n ote is different from the original. Images from the original note were not included. Requested Renewals Name from pharmacy: Tramadol 50mg Tablet Will file in chart as: TRAMADOL 50 mg tablet Possible duplicate: Hover to review recent actions on this medication Sig: TAKE ONE (1) TABLET(S) BY MOUTH EVERY SIX HOURS NEEDED FOR PAIN. important Maximum MME cannot be calculated for this prescription. Enter discrete sig details to calculate maximum MME. Disp: 30 tablet (Pharmacy requested: 30 Each) Refills: Not specified Start: 02/28/2023 Class: eRX For: Pain in both lower extremities To pharmacy: Sending Erx refill request Last ordered: 1 month ago (01/28/2023) by Brian Israel MD Last refill: 01/28/2023 Rx #: [id number] Controlled Substance Failed 02/28/2023 10:40 AM Protocol Details Valid encounter within last 3 months Pain agreement on file This refill cannot be delegated Name from pharmacy: Pregabalin 50mg Capsule Will file in chart as: PREGABALIN 50 mg capsule Sig: TAKE ONE (1) CAPSULE(S) BY MOUTH AT BEDTIME. Disp: 90 capsule (Pharmacy requested: 90 Each) Refills: Not specified Start: 02/28/2023 Class: eRX For: Lymphedema of both lower extremities; Wound of left lower extremity, initial encounter To pharmacy: Sending Erx refill request Last ordered: 6 months ago (08/31/2022) by Brian Israel MD Last refill: 11/12/2022 Rx #: [id number] Controlled Substance Failed 02/28/2023 10:40 AM Protocol Details Valid encounter within last 3 months Pain agreement on file This refill cannot be delegated To be filled at: [facility] Pharm[facility] [place], [place] - [address] [place] [address] AT [address] Recent Visits Date Type Provider Dept 01/18/23 Office Visit Brian Israel MD [facility] 12/09/22 Office Visit Brian Israel MD [facility] 09/28/22 Office Visit Brian Israel MD [facility] 08/31/22 Office Visit Brian Israel MD [facility] 07/30/22 Office Visit Brian Israel MD [facility] 07/15/22 Office Visit Brian Israel MD [facility] 06/08/22 Office Visit Brian Israel MD [facility] 05/10/22 Office Visit Brian Israel MD [facility] 04/29/22 Office Visit Brian Israel MD [facility] 04/22/22 Office Visit Brian Israel MD [facility] Showing recent visits within past 540 days with a meds authorizing provider and meeting all other requirements Future Appointments Date Type Provider Dept 03/08/23 Appointment Brian Israel MD [facility] 03/21/23 Appointment Brian Israel MD [facility] Showing future appointments within next 150 days with a meds authorizing provider and meeting all other requirements Arcelia Dumont LVN [facility] 2023-02-22 12:01:24 Formatting of this n ote is different from the original. TRANSITIONAL CARE MANAGEMENT ASSESSMENT 02/22/2023 Ivett Bran [id number] Ivett Bran is a 77 year old /White female was admitted on 02/20/23 to [facility], [facility]. She was discharged on 02/21/23 with discharge disposition of HR- Routine Discharge. Admitting Physician: Sam Meredith Discharge Diagnosis: Altered mental status-patient with altered mental status 2. Osteoarthritis 3. Pelvic wounds; No linked episodes TCM Sgj-igju-eh-face outreach documentation: Discharge Assessment Chart Assessed: 02/22/23 TCM Outreach Completed: 02/22/23 Do you have a few minutes to speak with me about how you are doing at home?: Yes (Patient stated she is doing better) Discharge Instructions Do you understand your at-home instructions?: Yes Medications Have you filled your prescriptions and do you have them in your home? : N/A Do you know how to take your medications?: Yes Supplies Did you receive applicable home medical supplies/equipment?: N/A Follow Up Appointment Has a follow up appointment been scheduled?: Yes Do you have any questions about your follow up appointments?: No Are you able to get to your appointment? Who will be taking you?: Yes (caregiver stays with her 24/01) Home Health Assistance Has the home health nurse contacted you since you've been home?: N/A Survey - Recognition Is there anything you would like to share about your recent hospitalization, or anyone you would like to recognize?: No Do you have any suggestions for improvement?: No Do you have any other questions or concerns at this time?: No Future Appointments: Future Appointments Provider Department Dept Phone 03/08/2023 4:20 PM rBian Israel MD [facility] [place] [phone] 03/21/2023 10:40 AM Brian Israel MD [facility] [place] [phone] 04/06/2023 1:30 PM Jamshid Early MD [facility] [phone] 05/23/2023 10:30 AM Erick Larios MD [facility] Endocrinology, [place] [phone] 06/22/2023 10:00 AM Jamshid Early MD [facility] [phone] 12/26/2023 10:00 AM 1, [facility] [phone] 12/29/2023 11:00 AM Xenia Lomeli MD [facility] Hematology-Oncology [facility] [phone] Alda Morrison RN [facility] 2023-02-21 17:09:24 Formatting of this n ote might be different from the original. Problem: Pain Goal: Control of pain at or below patient's documented comfort goal 02/21/20231708 by Vanessa Ramirez RN Outcome: Adequate for discharge 02/21/2023 1632 by Vanessa Ramirez RN Outcome: Progressing as expected Problem: Discharge Planning Goal: Adequate for discharge 02/21/2023 170 by Vanessa Ramirez RN Outcome: Adequate for discharge 02/21/2023 163 by Vanessa Ramirez RN Outcome: Progressing as expected Goal: Effective communication 02/21/20231708 by Vanessa Ramirez RN Outcome: Adequate for discharge 02/21/2023 163 by Vanessa Ramirez RN Outcome: Progressing as expected Problem: Falls, Risk of Goal: Absence of falls 02/21/20231708 by Vanessa Ramirez RN Outcome: Adequate for discharge 02/21/2023 1632 by Vanessa Ramirez RN Outcome: Progressing as expected Problem: Venous Thromboembolism, (actual or risk of) Goal: Absence of venous thromboembolism (Risk) 02/21/2023 1709 by Vanessa Ramirez RN Outcome: Adequate for discharge 02/21/2023 1632 by Vanessa Ramirez RN Outcome: Progressing as expected Problem: Skin integrity Impaired (Risk or Actual) Goal: Prevention of new skin breakdown 02/21/2023 1709 by Vanessa Ramirez RN Outcome: Adequate for discharge 02/21/2023 1632 by Vanessa Ramirez RN Outcome: Progressing as expected Vanessa Ramirez RN [facility] 2023-02-21 16:32:28 Formatting of this n ote might be different from the original. Problem: Pain Goal: Control of pain at or below patient's documented comfort goal Outcome: Progressing as expected Problem: Discharge Planning Goal: Adequate for discharge Outcome: Progressing as expected Goal: Effective communication Outcome: Progressing as expected Problem: Falls, Risk of Goal: Absence of falls Outcome: Progressing as expected Problem: Venous Thromboembolism, (actual or risk of) Goal: Absence of venous thromboembolism (Risk) Outcome: Progressing as expected Problem: Skin integrity Impaired (Risk or Actual) Goal: Prevention of new skin breakdown Outcome: Progressing as expected [facility] 2023-02-21 06:16:30 Formatting of this n ote might be different from the original. Problem: Falls, Risk of Goal: Absence of falls Outcome: Progressing as expected Problem: Skin integrity Impaired (Risk or Actual) Goal: Prevention of new skin breakdown Outcome: Progressing as expected Problem: Pain Goal: Control of pain at or below patient's documented comfort goal Outcome: Progressing as expected Problem: Discharge Planning Goal: Adequate for discharge Outcome: Progressing as expected Goal: Effective communication Outcome: Progressing as expected Problem: Venous Thromboembolism, (actual or risk of) Goal: Absence of venous thromboembolism (Risk) Outcome: Progressing as expected Germaine Olson RN [facility] 2023-02-20 23:36:04 Formatting of this n ote might be different from the original. Report given to CHRISSY Dorado. Patient to be admitted to 2221. Pt agree with POC and no questions at this time. Uri Godoy RN [facility] 2023-02-20 20:16:48 Formatting of this n ote might be different from the original. [facility] brought the pt in after being called our for AMS that was called in by caregiver. EMS reports pt responded to painful stimuli when they arrived on scene. Once pt was awake pt not eager to go to the ED. EMS reports initial BP was 90/50, repeat was 132/80 heart rate 80's 96% on room air. BGL 140 Pt complaining of left hip pain (new pain) denies any falls or injury. Pt states she is mostly mobile in wheelchair and is from home with a caregiver. Pt AAOx3 upon arrival to ED Humaira Walton RN [facility] 2023-02-20 20:10:00 Formatting of this n ote might be different from the original. AdmissionCare Guideline: Syncope - INPT, Inpatient Based on the indications selected for the patient, the bed status of Admit to Inpatient was determined to be MET The following indications were selected as present at the time of evaluation of the patient: - Syncope causing injury requiring hospitalization AdmissionCare documentation entered by: Ramírez Culp [facility], 27th edition, Copyright 2022 [facility] All Rights Reserved. [id number] [employer] [facility] [employer]IAN STAFF [facility] 2023-02-18 17:24:55 Formatting of this n ote might be different from the original. Spoke with Kristy from [facility] and gave a verbal order: Pt is to continue with 4-layer compression dressings bilaterally Change dressings every 3 days Vascular studies were previously ordered and scheduled for 02/22/23 Left VM for pt on her cell to call the office and schedule a f/u appt Roel Hoang APRN, MSN, [facility] Vascular Surgery [employer]ITICAL [employer]IC[employer] [facility] 2023-02-15 17:29:25 Formatting of this n ote might be different from the original. I sent the RX a couple of weeks ago. Does she already need a refill? Best, Dr. Israel [facility] 2023-02-15 16:26:43 Formatting of this n ote is different from the original. Recent Visits Date Type Provider Dept 01/18/23 Office Visit Brian Israel MD [facility] 12/09/22 Office Visit Brian Israel MD [facility] 09/28/22 Office Visit Brian Israel MD [facility] 08/31/22 Office Visit Brian Israel MD [facility] 07/30/22 Office Visit Brian Israel MD [facility] 07/15/22 Office Visit Brian Isarel MD [facility] 06/08/22 Office Visit Brian Israel MD [facility] 05/10/22 Office Visit Brian Israel MD [facility] 04/29/22 Office Visit Brian Israel MD [facility] 04/22/22 Office Visit Brian Israel MD [facility] Showing recent visits within past 540 days with a meds authorizing provider and meeting all other requirements Future Appointments Date Type Provider Dept 03/21/23 Appointment Brian Israel MD [facility] Showing future appointments within next 150 days with a meds authorizing provider and meeting all other requirements Last refill was TRAMADOL 50 mg tablet 30 tablet 0 01/28/2023 No Sig: TAKE ONE (1) TABLET(S) BY MOUTH EVERY SIX HOURS NEEDED FOR PAIN. Draa Delgado MA [facility] 2023-02-11 13:04:27 Formatting of this n ote might be different from the original. I do not have a good alternative at this time. She may just have to increase her insulin if she used to be on it and stopped. I recommend contacting endocrine or discussing at next visit as they may know of an assistance program. [facility] 2023-02-11 10:04:00 Formatting of this n ote might be different from the original. Pt says she cant get ozempic want to know what alternative is or should she take more of the other meds she has Milena Rubio [facility] 2023-02-10 14:47:03 Formatting of this n ote might be different from the original. Ivett Bran is a 77 year old female pt Kristy from [facility] is calling to see if they can order the 4 layer compression wrap for the pt. Please put the directions on when to take them on and off [phone] Fax.[phone] Juli Shipley V [facility] 2023-02-09 09:44:10 Formatting of this n ote might be different from the original. Ivett Bran is a 77 year old female Patients caregiver is calling to schedule Vascular US. Please assist. Contact at [phone] Livia Acuna [facility] 2023-02-03 09:28:31 Formatting of this n ote is different from the original. Images from the original note were not included. Please review and refill the following two prescriptions is appropriate . FUROSEMIDE 40 mg tablet 60 tablet 0 01/05/2023 Cardiovascular: Loop Diuretics Failed 02/02/2023 06:51 AM Protocol Details Cr in normal range and within 180 days Valid encounter within last 12 months K in normal range and within 180 days BACLOFEN 10 mg tablet 90 tablet 3 10/14/2022 Provider Review Required Failed 02/02/2023 06:51 AM Protocol Details This refill cannot be delegated Valid encounter within last 12 months Recent Visits Date Type Provider Dept 01/18/23 Office Visit Brian Israel MD [facility] 12/09/22 Office Visit Brian Israel MD [facility] 09/28/22 Office Visit Brian Israel MD [facility] 08/31/22 Office Visit Brian Israel MD [facility] 07/30/22 Office Visit Brian Israel MD [facility] 07/15/22 Office Visit Brian Israel MD [facility] 06/08/22 Office Visit Brian Israel MD [facility] 05/10/22 Office Visit Brian Israel MD [facility] 04/29/22 Office Visit Brian Israel MD [facility] 04/22/22 Office Visit Brian Israel MD [facility] Showing recent visits within past 540 days with a meds authorizing provider and meeting all other requirements Future Appointments Date Type Provider Dept 03/21/23 Appointment Brian Israel MD [facility] Showing future appointments within next 150 days with a meds authorizing provider and meeting all other requirements Khadijah Gomez MA [facility] 2023-01-28 12:55:28 Formatting of this n ote is different from the original. Images from the original note were not included. Last Refilled: 12/23/22 Notes: [facility] [address] [facility] AT [address] Recent Visits Date Type Provider Dept 01/18/23 Office Visit Brian Israel MD [facility] 12/09/22 Office Visit Brian Israel MD [facility] 09/28/22 Office Visit Brian Israel MD [facility] 08/31/22 Office Visit Brian Israel MD [facility] 07/30/22 Office Visit Brian Israel MD [facility] 07/15/22 Office Visit Brian Israel MD [facility] 06/08/22 Office Visit Brian Israel MD [facility] 05/10/22 Office Visit Brian Israel MD [facility] 04/29/22 Office Visit Brian Israel MD [facility] 04/22/22 Office Visit Brian Israel MD [facility] Showing recent visits within past 540 days with a meds authorizing provider and meeting all other requirements Future Appointments Date Type Provider Dept 03/21/23 Appointment Brian Israel MD [facility] Showing future appointments within next 150 days with a meds authorizing provider and meeting all other requirements Name from pharmacy: Tramadol 50mg Tablet Will file in chart as: TRAMADOL 50 mg tablet Sig: TAKE ONE (1) TABLET(S) BY MOUTH EVERY SIX HOURS NEEDED FOR PAIN. important Maximum MME cannot be calculated for this prescription. Enter discrete sig details to calculate maximum MME. Disp: 30 tablet (Pharmacy requested: 30 Each) Refills: Not specified Start: 01/28/2023 Class: eRX For: Pain in both lower extremities To pharmacy: Sending Erx refill request Last ordered: 1 month ago (12/23/2022) by Brian Israel MD Last refill: 12/23/2022 Rx #: [id number] Controlled Substance Failed 01/28/2023 11:39 AM Protocol Details Valid encounter within last 3 months Pain agreement on file This refill cannot be delegated To be filled at: [facility] [place] - [address] Sirena Galaviz MA [facility] 2023-01-21 14:46:18 Formatting of this n ote might be different from the original. Received Home Health Certification and Plan of Care. Placed in the providers box. Ochoa Mcguire [facility]
--- NOTE | 2024-02-26 02:44 | EDPHYS ---
Physician Documentation [facility] Name: Stephany Bran Age: 78 yrs Sex: Female : 1945 Arrival Date: 02/25/2024 Time: 23:32 Bed 5 Private MD: ED Physician Matthew Reza HPI: 02/25 02:32 This 78 yrs old Female presents to ER via EMS with complaints of Hip Pain. sp4 07:54 78-year-old female presents with acute onset of spasmodic pain in the left hip left sp4 thigh left lower back. Historical: - Allergies: 02/24 23:38 Ciprofloxacin; ha1 23:38 Demerol; ha1 23:38 Erythromycin; ha1 23:38 Losartan; ha1 23:38 MACROLIDES; ha1 23:38 Metformin HCl; ha1 23:38 metronidazole; ha1 23:38 Myacin family; ha1 23:38 PENICILLINS; ha1 23:38 pentoxifylline; ha1 - PMHx: 23:38 Atrial fibrillation; Diabetes mellitus; Osteoarthritis; Osteoporosis; Glaucoma; ha1 Hypothyroidism; NEUROPATHY; - Immunization history:: Adult Immunizations up to date. - Infectious Disease History:: Denies. - Social history:: Smoking status: Patient denies any tobacco usage or history of. - Family history:: not pertinent. ROS: 02/25 07:54 Constitutional: Negative for fever, chills, and weight loss, presented with acute pain sp4 left hip left thigh left lower back All other systems are negative, Exam: 07:55 Constitutional: This is a well developed, well nourished patient who is awake, alert, sp4 patient is in moderate distress , arrived with EMS. Nonambulatory on arrival Head/Face: Normocephalic, atraumatic. Eyes: Pupils equal round and reactive to light, extra-ocular motions intact. Lids and lashes normal. Conjunctiva and sclera are not injected. Cornea within normal limits. Periorbital areas with no swelling, redness, or edema. ENT: Nares patent. No nasal discharge, no septal abnormalities noted. Tympanic membranes are normal and external auditory canals are clear. Oropharynx with no redness, swelling, or masses, exudates, or evidence of obstruction, uvula midline. Mucous membranes moist. Neck: Trachea midline, no thyromegaly or masses palpated, and no cervical lymphadenopathy. Supple, full range of motion without nuchal rigidity, or vertebral point tenderness. Chest/axilla: Normal chest wall appearance and motion. Nontender with no deformity. No lesions are appreciated. Cardiovascular: Regular rate and rhythm with a normal S1 and S2. No gallops, murmurs, or rubs. Normal PMI, no JVD. No pulse deficits. Respiratory: Lungs have equal breath sounds bilaterally, clear to auscultation and percussion. No rales, rhonchi or wheezes noted. No increased work of breathing, no retractions or nasal flaring. Abdomen/GI: Soft, with normal bowel sounds. No distension or tympany. No guarding or rebound. No evidence of tenderness throughout. Back: No spinal tenderness. No costovertebral tenderness. Skin: Warm, dry with normal turgor. Normal color with no rashes, no lesions, and no evidence of cellulitis. MS/ Extremity: Pulses equal, no cyanosis. Neurovascular intact. Full, normal range of motion. Neuro: Awake and alert, GCS 15, oriented to person, place, time, and situation. Cranial nerves II-XII grossly intact. Motor strength 5/5 in all extremities. Sensory grossly intact. Psych: Awake, alert, with orientation to person, place and time. Behavior, mood, and affect are within normal limits Vital Signs: 02/24 23:34 BP 193 / 59; Pulse 88; Resp 19 S; Temp 97.5(T); Pulse Ox 100% on R/A; Weight 109.32 kg; ha1 Height 5 ft. 7 in. ; Pain 04/12; 02/25 00:15 BP 188 / 102; Pulse 82; Resp 19 S; Pulse Ox 95% on R/A; ha1 01:30 BP 179 / 97; Pulse 85; Resp 18 S; Pulse Ox 97% on R/A; ha1 02:31 BP 201 / 91; Pulse 91; Resp 17; Temp 97.5; Pulse Ox 97% ; Pain 8/10; bm8 03:17 BP 172 / 67; Pulse 92; Resp 17; Temp 97.5; Pulse Ox 97% ; Pain 8/10; bm8 02/24 23:34 Body Mass Index 37.75 (109.32 kg, 170.18 cm) ha1 02/24 23:34 Pain Scale: Adult ha1 02:31 Pain Scale: Adult bm8 03:17 Pain Scale: Adult bm8 Arik Coma Score: 02:31 Eye Response: spontaneous(4). Motor Response: obeys commands(6). Verbal Response: bm8 oriented(5). Total: 15. 07:55 Eye Response: spontaneous(4). Motor Response: obeys commands(6). Verbal Response: sp4 oriented(5). Total: 15. MDM: 02/24 23:55 Patient medically screened. sp4 02/25 02:31 ED course: EXAMINATION: CTABDOMEN PELVIS WITHOUT IV CONTRAST INDICATION: Female, 78 sp4 years old, pelvic pain after a fall COMPARISON(S): 02/03/2022 TECHNIQUE: CT acquisition of the abdomen and pelvis without contrast. Coronal and sagittal reformatted images provided. This exam was performed according to departmental dose-optimization program which includes automated exposure control, adjustment of the mA and/or kV according to patient size, and/or use of iterative reconstruction technique. FINDINGS: SUPPORTIVE DEVICES: None. LOWER CHEST: Mild basilar scarring/atelectasis. Mild cardiomegaly with coronary and annular atherosclerosis. ABDOMEN AND PELVIS: Exam-limited assessment of structures include: * Abdominopelvic viscera and vessels due to lack of intravenous contrast. * Beam hardening from arms down positioning resulting in decreased [id number]. * Edge of gantry/beam hardening artifact resulting in poor [id number]. * Suboptimal patient positioning and planes of reformation. Liver: Unremarkable. Gallbladder and bile ducts: Multiple layering stones in the fundal gallbladder lumen. No evidence of wall thickening or ductal dilation. Pancreas: Mild atrophy. Spleen: Numerous parenchymal calcifications. Adrenal glands: Unremarkable. Kidneys and ureters: No evidence of stone or obstruction. Similar degree of asymmetric left renal atrophy. Bladder: Normal. Reproductive organs: Absent uterus. No identified pelvic mass. GI tract: Small hiatal hernia. Otherwise the distal esophagus, stomach, duodenum and small bowel are unremarkable. No evidence of appendicitis. The large bowel is normal in caliber without wall thickening. Distal colonic diverticulosis without diverticulitis. Vessels: Atherosclerosis without evidence of aneurysm. Lymph nodes: No obvious adenopathy. Peritoneum: No evidence of ascites, fluid collection, or free air. Abdominal wall: No significant hernia. MUSCULOSKELETAL: No acute osseous abnormality. Degenerative change of the spine and pelvis. Osteopenia. IMPRESSION: 1. No acute osseous finding of the pelvis. 2. No acute abdominopelvic finding, evidence of urinary stone or obstruction. 3. Numerous chronic and incidental findings above. Electronically signed by: Joey Brannon MD 02/26/2024 12:51 AM . 02:32 ED course: EXAM: Femur Left CLINICAL INDICATION: 78-year-old female with numbness and sp4 tingling. COMPARISON: None. TECHNIQUE: 4 views of the femur were obtained. FINDINGS: Poor visualization of the lateral femur secondary to overlying artifact. There is no fracture or dislocation. The joint spaces are preserved. No soft tissue abnormalities are seen. Degenerative changes of the knee with sharpening of the tibial spines and tricompartmental osteophytes. IMPRESSION: No acute radiographic abnormality. Electronically signed by: Maddie Tuttle MD 02/26/2024 12:44 AM. 07:56 Differential diagnosis: hip fracture, bursitis, arthritis, strain. Data reviewed: vital sp4 signs, nurses notes, EMS record, old medical records, lab test result(s), radiologic studies, CT scan, plain films. Consideration of Admission/Observation Escalation of care including admission/observation considered. ED course: Patient was offered admission for pain control however she opted to go home. 02/24 23:35 Order name: CBC with Diff; Complete Time: 02:42 sp4 02/24 23:35 Order name: CMP; Complete Time: 02:42 sp4 02/24 23:35 Order name: CT Abd/Pelvis - Without Contrast sp4 02/24 23:35 Order name: Femur Left XRAY sp4 02/24 23:35 Order name: IV Saline Lock; Complete Time: 23:44 sp4 02/24 23:35 Order name: Labs collected and sent; Complete Time: 23:44 sp4 Administered Medications: 02/24 23:44 Drug: Haloperidol IVP 2.5 mg/50 mL 2.5 mg IVP once; Place patient on a air sampling and monitoring bm8 Route: IVP; Site: left antecubital; 02/25 00:10 Follow up: Response: No adverse reaction; Anxiety unchanged ha1 02/24 23:44 Drug: Ondansetron IVP 4 mg IVP once; over 2 minutes Route: IVP; Site: left antecubital; bm8 02/25 00:10 Follow up: Response: No adverse reaction ha1 02/24 23:44 Drug: morphine IVP or IV 4 mg IVP once over 4 mins Route: IVP; Infused Over: 4 mins; bm8 Site: left antecubital; 02/25 00:10 Follow up: Response: No adverse reaction; Pain is unchanged, physician notified; RASS: ha1 Restless (+1) 02/24 23:56 Drug: TORadol - Ketorolac IVP 15 mg IVP once Route: IVP; Site: left antecubital; bm8 02/25 00:10 Follow up: Response: No adverse reaction; Pain is unchanged, physician notified ha1 02/24 23:56 Drug: morphine IVP or IV 2 mg IVP once over 4 mins Route: IVP; Infused Over: 4 mins; bm8 Site: left antecubital; 02/25 00:15 Follow up: Response: No adverse reaction; Pain is unchanged, physician notified ha1 03:17 Drug: [place] PO 10 mg-325 mg 1 tabs PO once Route: PO; bm8 03:19 Follow up: Response: No adverse reaction bm8 03:17 Drug: Ondansetron PO 4 mg PO once Route: PO; bm8 03:18 Follow up: Response: Medication Administered at Departure bm8 03:17 Drug: HydrALAZINE PO 50 mg PO once Route: PO; bm8 03:18 Follow up: Response: Medication Administered at Departure 8 Disposition Summary: 02/26/24 02:43 Discharge Ordered Notes: Location: Home sp4 Problem: new sp4 Symptoms: have improved sp4 Condition: Stable sp4 Diagnosis - Subacute fall at home, left lower back pain, left hip and thigh pain , tissue sp4 contusion of the left hip and thigh Followup: sp4 - With: Private Physician - When: 7 - 10 days - Reason: Recheck today's complaints Discharge Instructions: - Discharge Summary Sheet sp4 - Contusion, [id number] sp4 Forms: - Patient Portal Instructions sp4 Prescriptions: - Tramadol 50 mg Oral tablet - take 1 tablet ORAL route every 8 hours as needed; 25 tablet; Refills: 0, sp4 Product Selection Permitted - methocarbamol 750 mg Oral tablet - take 1 tablet ORAL route every 8 hours for 3 days PRN muscle soreness; 30 sp4 tablet; Refills: 0, Product Selection Permitted Signatures: Dispatcher [employer] Chantel Gonzalez, RN RN ha1 Matthew Reza MD MD sp4 Ender Turk RN RN bm8
--- NOTE | 2024-02-26 02:44 | ER ---
Nurse's Notes [facility] Name: Stephany Bran Age: 78 yrs Sex: Female : 1945 Arrival Date: 02/25/2024 Time: 23:32 Bed 5 Private MD: Diagnosis: Subacute fall at home, left lower back pain, left hip and thigh pain , tissue contusion of the left hip and thigh Presentation: 02/24 23:34 Chief complaint: EMS states: 78 YEAR OLD FEMALE REPORTS HEARING HER LEFT HIP POP WHILE ha1 LAYING IN BED AND SEVER PAIN. MULTIPLE FALLS THROUGH OUT THE PAST MONTH. Coronavirus screen: Vaccine status:. Ebola Screen: No symptoms or risks identified at this time. Initial Sepsis Screen: Does the patient meet any 2 criteria? No. Patient's initial sepsis screen is negative. Does the patient have a suspected source of infection? No. Patient's initial sepsis screen is negative. Risk Assessment: Do you want to hurt yourself or someone else? Patient reports no desire to harm self or others. Onset of symptoms was February 25, 2024. 23:34 Method Of Arrival: EMS: [facility] ha1 23:34 Acuity: NGA 3 ha1 23:44 Care prior to arrival: IV initiated. 20 GA, in the left antecubital area. bm8 Triage Assessment: 23:34 General: Appears uncomfortable, Behavior is cooperative, anxious, crying. Pain: ha1 Complains of pain in left hip Pain does not radiate. Pain currently is 10 out of 10 on a pain scale. Quality of pain is described as aching, sharp, shooting, Pain began suddenly, Aggravated by exercise, increased activity. Neuro: Level of Consciousness is awake, alert, obeys commands, Oriented to person, place, time, situation. Cardiovascular: Capillary refill < 3 seconds. Respiratory: Airway is patent Trachea midline Respiratory effort is even, unlabored, Respiratory pattern is regular, symmetrical. GI: Abdomen is round non-distended, obese, Bowel sounds present X 4 quads. : No signs and/or symptoms were reported regarding the genitourinary system. Derm: Wound noted medial aspect of right calf, right ankle and medial aspect of right foot COVERED WITH SATHYA WRAP. DRESSING CLEAN AND DRY. Musculoskeletal: Reports pain in left hip Pain is 10 out of 10 on a pain scale. Historical: - Allergies: 23:38 Ciprofloxacin; ha1 23:38 Demerol; ha1 23:38 Erythromycin; ha1 23:38 Losartan; ha1 23:38 MACROLIDES; ha1 23:38 Metformin HCl; ha1 23:38 metronidazole; ha1 23:38 Myacin family; ha1 23:38 PENICILLINS; ha1 23:38 pentoxifylline; ha1 - PMHx: 23:38 Atrial fibrillation; Diabetes mellitus; Osteoarthritis; Osteoporosis; Glaucoma; ha1 Hypothyroidism; NEUROPATHY; - Immunization history:: Adult Immunizations up to date. - Infectious Disease History:: Denies. - Social history:: Smoking status: Patient denies any tobacco usage or history of. - Family history:: not pertinent. Screenin:45 [facility] ED Fall Risk Assessment (Adult) History of falling in the last 3 months, bm8 including since admission Yes- fall prone (multiple falls) (3 pts) Confusion or Disorientation No (0 pts) Intoxicated or Sedated No (0 pts) Impaired Gait Yes (1 pt) Mobility Assist Device Used Yes (1 pt) Altered Elimination Yes (1 pt) Score/Fall Risk Level 3 or more points = High Risk Oriented to surroundings, Maintained a safe environment, Educated pt \T\ family on fall prevention, incl call for assistance when getting out of bed, Assessed \T\ reinforced patient's understanding of fall precautions, Hourly rounding (assess needs \T\ fall precautionary measures) done, Used ambulatory aids as needed (educated on \T\ assisted with), Used gait belt as appropriate Implemented a Fall Risk Plan of Care, Apply high fall risk patient identification: yellow non skid footwear/ fall signage. Abuse screen: Denies threats or abuse. Nutritional screening: No deficits noted. Tuberculosis screening: No symptoms or risk factors identified. Assessment: 23:34 Reassessment: SEE TRIAGE ASSESSMENT. ha1 02/25 00:40 Reassessment: Patient and/or family updated on plan of care and expected duration. Pain ha1 level reassessed. BACK FROM CT. 01:30 Reassessment: eyes closed. Respiratory: Airway is patent Respiratory effort is even, ha1 unlabored, Respiratory pattern is regular, symmetrical. 02:31 Reassessment: Patient appears in no apparent distress at this time. No changes from bm8 previously documented assessment. Patient and/or family updated on plan of care and expected duration. Pain level reassessed. Patient is alert, oriented x 3, equal unlabored respirations, skin warm/dry/pink. Vital Signs: 02/24 23:34 BP 193 / 59; Pulse 88; Resp 19 S; Temp 97.5(T); Pulse Ox 100% on R/A; Weight 109.32 kg; ha1 Height 5 ft. 7 in. ; Pain 10/10; 02/25 00:15 BP 188 / 102; Pulse 82; Resp 19 S; Pulse Ox 95% on R/A; ha1 01:30 BP 179 / 97; Pulse 85; Resp 18 S; Pulse Ox 97% on R/A; ha1 02:31 BP 201 / 91; Pulse 91; Resp 17; Temp 97.5; Pulse Ox 97% ; Pain 8/10; bm8 03:17 BP 172 / 67; Pulse 92; Resp 17; Temp 97.5; Pulse Ox 97% ; Pain 8/10; bm8 02/24 23:34 Body Mass Index 37.75 (109.32 kg, 170.18 cm) ha1 02/24 23:34 Pain Scale: Adult ha1 02:31 Pain Scale: Adult bm8 03:17 Pain Scale: Adult bm8 Arik Coma Score: 02:31 Eye Response: spontaneous(4). Motor Response: obeys commands(6). Verbal Response: bm8 oriented(5). Total: 15. 07:55 Eye Response: spontaneous(4). Motor Response: obeys commands(6). Verbal Response: sp4 oriented(5). Total: 15. ED Course: 02/24 23:34 Patient arrived in ED. ha1 23:34 Ender Turk, RN is Primary Nurse. bm8 23:34 Matthew Reza MD is Attending Physician. sp4 23:38 Triage completed. ha1 23:45 No provider procedures requiring assistance completed. Initial lab(s) drawn, by fl, bm8 sent to lab. Maintain EMS IV. Dressing intact. Good blood return noted. Site clean \T\ dry. Gauge \T\ site: 20g lac. Flushed with 10 mL NS IV is patent, with fluids infusing freely, with good blood return. 23:45 Patient has correct armband on for positive identification. Placed in gown. Bed in low bm8 position. Call light in reach. Side rails up X2. Adult w/ patient. Client placed on continuous cardiac and pulse oximetry monitoring. NIBP monitoring applied. engine monitor on. Pulse ox on. NIBP on. Door closed. Warm blanket given. Verbal reassurance given. Head of bed lowered. 02/25 00:30 CT Abd/Pelvis - Without Contrast In Process Unspecified. EDMS 00:31 Femur Left XRAY In Process Unspecified. EDMS 03:13 Provided Education on: medication administration . 1 03:17 Arm band placed on right wrist. Patient placed. EKG completed in triage. Results shown bm8 to MD. 03:18 IV discontinued, intact, bleeding controlled, No redness/swelling at site. Pressure bm8 dressing applied. Administered Medications: 02/24 23:44 Drug: Haloperidol IVP 2.5 mg/50 mL 2.5 mg IVP once; Place patient on a engine monitor bm8 Route: IVP; Site: left antecubital; 02/25 00:10 Follow up: Response: No adverse reaction; Anxiety unchanged [facility] 02/24 23:44 Drug: Ondansetron IVP 4 mg IVP once; over 2 minutes Route: IVP; Site: left antecubital; bm8 02/25 00:10 Follow up: Response: No adverse reaction [facility] 02/24 23:44 Drug: morphine IVP or IV 4 mg IVP once over 4 mins Route: IVP; Infused Over: 4 mins; bm8 Site: left antecubital; 02/25 00:10 Follow up: Response: No adverse reaction; Pain is unchanged, physician notified; RASS: ha1 Restless (+1) 02/24 23:56 Drug: TORadol - Ketorolac IVP 15 mg IVP once Route: IVP; Site: left antecubital; bm8 02/25 00:10 Follow up: Response: No adverse reaction; Pain is unchanged, physician notified ha1 02/24 23:56 Drug: morphine IVP or IV 2 mg IVP once over 4 mins Route: IVP; Infused Over: 4 mins; bm8 Site: left antecubital; 02/25 00:15 Follow up: Response: No adverse reaction; Pain is unchanged, physician notified [facility] 03:17 Drug: Redkey PO 10 mg-325 mg 1 tabs PO once Route: PO; bm8 03:19 Follow up: Response: No adverse reaction bm8 03:17 Drug: Ondansetron PO 4 mg PO once Route: PO; bm8 03:18 Follow up: Response: Medication Administered at Departure bm8 03:17 Drug: HydrALAZINE PO 50 mg PO once Route: PO; bm8 03:18 Follow up: Response: Medication Administered at Departure bm8 Medication: 02/24 23:52 VIS not applicable for this client. ha1 Outcome: 02/25 02:43 Discharge ordered by . nataliia 03:18 Discharged to home via wheelchair, bm8 03:18 Condition: stable 03:18 Discharge instructions given to patient, family, Instructed on discharge instructions, follow up and referral plans. medication usage, safety practices, Demonstrated understanding of instructions, follow-up care, medications, Prescriptions given X 2, 03:19 Patient left the ED. bm8 Signatures: Dispatcher [employer] EDChantel Garcia RN RN ha1 Matthew Reza MD MD sp4 Ender Turk RN RN bm8 Corrections: (The following items were deleted from the chart) 00:56 00:10 Response: No adverse reaction; Marked relief of symptoms ha1 ha1
[2024-02-26] MEDS ORDERED: ONDANSETRON 4 MG (ODT) TAB ONE (03:05)
[2024-02-26] MEDS ORDERED: HYDROCODONE/APAP 10/325 TAB ONE (03:05)
[2024-02-26] MEDS ORDERED: HYDRALAZINE HCL 25 MG TABLET ONE (03:05)
[2024-02-26 03:30] VITALS: TEMP 97.5
[2024-02-26 03:32] VITALS: O2SAT 97
[2024-02-26 03:35] VITALS: BP 172/67
--- NOTE | 2024-02-27 13:58 | RAD REPORT ---
EXAM DESCRIPTION: RAD - Femur Left - 02/26/2024 12:30 am CLINICAL HISTORY: 78-year-old female with numbness and tingling. COMPARISON: None. TECHNIQUE: 4 views of the femur were obtained. FINDINGS: Poor visualization of the lateral femur secondary to overlying artifact. There is no fract ure or dislocation. The joint spaces are preserved. No soft tissue abnormalities are seen. Degenerati ve changes of the knee with sharpening of the tibial spines and tricompartmental osteophytes. IMPRESSION: No acute radiographic abnormality. Electronically signed by: Maddie Tuttle MD 02/26/2024 12:44 AM CDT RP Due to temporary technical issues with the PACS/Fluency reporting system, reports are being signed by the in house radiologist without review as a courtesy to ensure prompt reporting. The interpreting r adiologist is fully responsible for the content of the report.
--- NOTE | 2024-02-27 14:22 | RAD REPORT ---
EXAM DESCRIPTION: CT - Abdomen Pelvis Wo Contrast - 02/26/2024 6:40 am CLINICAL HISTORY: Female, 78 years old, pelvic pain after a fall COMPARISON: 02/03/2022 TECHNIQUE: CT acquisition of the abdomen and pelvis without contrast. Coronal and sagittal reformatt ed images provided. This exam was performed according to departmental dose-optimization program which includes automated exposure control, adjustment of the mA and/or kV according to patient size, and/o r use of iterative reconstruction technique. FINDINGS: SUPPORTIVE DEVICES: None. LOWER CHEST: Mild basilar scarring/atelectasis. Mild cardiomegaly with coronary and annular atheroscl erosis. ABDOMEN AND PELVIS: Exam-limited assessment of structures include: * Abdominopelvic viscera and vessels due to lack of intravenous contrast. * Beam hardening from arms down positioning resulting in decreased [id number]. * Edge of gantry/beam hardening artifact resulting in poor [id number]. * Suboptimal patient positioning and planes of reformation. Liver: Unremarkable. Gallbladder and bile ducts: Multiple layering stones in the fundal gallbladder lumen. No evidence of wall thickening or ductal dilation. Pancreas: Mild atrophy. Spleen: Numerous parenchymal calcifications. Adrenal glands: Unremarkable. Kidneys and ureters: No evidence of stone or obstruction. Similar degree of asymmetric left renal atr ophy. Bladder: Normal. Reproductive organs: Absent uterus. No identified pelvic mass. GI tract: Small hiatal hernia. Otherwise the distal esophagus, stomach, duodenum and small bowel are unremarkable. No evidence of appendicitis. The large bowel is normal in caliber without wall thickeni ng. Distal colonic diverticulosis without diverticulitis. Vessels: Atherosclerosis without evidence of aneurysm. Lymph nodes: No obvious adenopathy. Peritoneum: No evidence of ascites, fluid collection, or free air. Abdominal wall: No significant hernia. MUSCULOSKELETAL: No acute osseous abnormality. Degenerative change of the spine and pelvis. Osteopeni a. IMPRESSION: 1. No acute osseous finding of the pelvis. 2. No acute abdominopelvic finding, evidence of urinary stone or obstruction. 3. Numerous chronic and incidental findings above. Electronically signed by: Joey Brannon MD 02/26/2024 12:51 AM CDT RP Due to temporary technical issues with the PACS/Fluency reporting system, reports are being signed by the in house radiologist without review as a courtesy to ensure prompt reporting. The interpreting r adiologist is fully responsible for the content of the report.
== END 2024-02-26 03:19 | disposition home or self-care (01) ==
LOC: ER 23:32
DX: S70.02XA Contusion of left hip, initial encounter (principal); S70.12XA Contusion of left thigh, initial encounter; M79.652 Pain in left thigh; M54.50 Low back pain, unspecified; W18.30XA Fall on same level, unspecified, initial encounter; Y92.009 Unspecified place in unspecified non-institutional (private) residence as the place of occurrence of the external cause
CPT/HCPCS: 85025; 36415; 80053; 74176; 73552; 96375; 96374; 99285; Q0162; J1630; J2270; J2405

== ENCOUNTER 2024-10-06 09:42 | Inpatient (IN) | payer OTHER ==
--- OUTSIDE RECORDS SUMMARY | 2024-10-06 10:31 | XMS REPORT | Continuity of Care Document ---
Author Name Unknown Address [address] [facility] [place] [address] [facility] Address [address] [place] [address] Care Team Providers Care Instructional Technology Facilitator Name Role Phone [phone] Primary Care Physician Unavailab le [id number] Attending Clinician Unavailable CITY DETECTIVE PENDING, CITY DETECTIVE PENDING Attending Clinician Unavailable JEROME SOARES Attending Clinician Unavailable Doctor Unassigned, [place] Attending Clinician Brian Mancilla MD Attending Clinician +[phone] Lou Tomlin LVN Attending Clinician UnavailKAMLESH Rogers Attending Clinician Unavailable EARLY, SENDIL K.H. Attending Clinician Unavaila justin Soares MD, Jerome Attending Clinician +[phone] BRIAN ISRAEL Attending Clinician Unavailable BRIAN ISRAEL Attending Clinician Unavailable Michael EPPS, Elsi Attending Clinician +[phone] Nehal Mason Attending Clinician [phone] ELSI CHRISTIAN Attending Clinician Unavailable ELSI CHRISTIAN Attending Clinician Unavailable Sharath EPPS, Jamshid K.H. Attending Clinician [phone] Talia Epstein RN Attending Clinician Unavaila justin BUTLERC, Emili Attending Clinician +[phone] PHILIPPE LARSEN Attending Clinician UnavailPHILIPPE Montalvo Attending Clinician UnavailPhilippe Montalvo MD Attending Clinician + [phone] JAYDEN MITCHELL Attending Clinician Unavailable XENIA LOMELI Attending Clinician Unavailable XENIA LOMELI Attending Clinician Unavailable Shahzad Wyatt MD Attending Clinician Abigail Ley RN Attending Clinician Unavailable SHAHZAD PRO Attending Clinician Unavailable Doctor Unassigned, [place] Attending Clinician U navailable Lab, Ang - Db Attending Clinician Unavailable Bridgette Black RN Attending Clinician Unavail able DANIELLA HAWK Attending Clinician Unavailab Daniella Kathleen MD Attending Clinician + [phone] Wale Haynes MD Attending Clinician +- [phone] Nehal Mason Attending Clinician [phone] STEPH NUR Attending Clinician Unavailable Steph Nur MD Attending Clinician +[phone] 2, [facility] Attending Clinician Unavailable Sharath EPPS, Jamshid K.H. Attending Clinician +[phone] DAVID LIMA Attending Clinician Unavailable DAVID LIMA Attending Clinician Unavailable Leo LOWE, Simba Shetty Attending Clinician UnavailMICHOACANO Moise Attending Clinician Unavailable MICHOACANO WILKES Attending Clinician Unavailable Michoacano Wilkes DO Attending Clinician +[phone] Erick Larios MD Attending Clinician +[phone] NEHAL TITUS Attending Clinician Unavailable José Miguel Bedolla MD Attending Clinician [phone] Pranav [facility], Jina Ann Attending Clinician Unavail able ERICK LARIOS Attending Clinician Unavailable JOSÉ MIGUEL BEDOLLA Attending Clinician Unavailable Prince LOWE, Alda Avalos Attending Clinician Unavailab GERMÁN Mcdaniel Attending Clinician Unavailable Isac COMBS, Tootie Steen Attending Clinician +[phone] Germán Alvarenga DO Attending Clinician +[phone] Jason LOWE, Rodo Ann Attending Clinician Unavail able Mary Poon MD Attending Clinician [phone] Dagmar Cooper MD Attending Clinician + [phone] ROEL HOANG Attending Clinician UnavailSAM Rodriguez Attending Clinician UnavailRamírez Serrano MD Attending Clinician [phone] Sam Meredith MD Attending Clinician +[phone] Roel Yusuf Attending Clinician +[phone] MARYCARMEN ROJAS Attending Clinician Unavailable Crystal OPERATIONS LEADER, aMrycarmen Stevens Attending Clinician + [phone] MISA CEBALLOS A Attending Clinician UnaCONSTANCE Apodaca Attending Clinician Unavailtorres Kelly [facility], Talia Stevens Attending Clinician +[phone] Tucker BEDOYA, Misa Ann Attending Clinician + BLADIMIR FERRARO Attending Clinician Unavailable Patel Betancur MD Attending Clinician + [phone] Nayely Jarvis MD Attending Clinician +[phone] Bladimir Ferraro MD Attending Clinician [phone] Hung EPPS, Sushli Attending Clinician +[phone] Jovany Bronson DO Attending Clinician + [phone] Jason Mckinney MD Attending Clinician +[phone] Les Dela Cruz Attending Clinician +[phone] LES VYAS Attending Clinician Unavailable Piper Goddard DO Attending Clinician +[phone] Brown COMMERCIAL RELATIONSHIP MANAGER, Pavithra K Attending Clinician Unavail able Rosalee EPPS, Philippe Stevens Attending Clinician +[phone] GARY MCKAY Attending Clinician Linda Stone MD, Constance Attending Clinician +- [phone] Gary Schwartz R Attending Clinician +[phone] JOSH Attending Clinician Unavailable Armand Ball Attending Clinician [phone] APOLLO REESE Attending Clinician Unavailable Dylan EPPS, Randi Chiu Attending Clinician [phone] Apollo Reese MD Attending Clinician +[phone] Sebastian EPPS, Clay Attending Clinician +[phone] CLAY CASE Attending Clinician Unavailable Simon Nixon PT, Arlet Attending Clinician Un available Manish Mckeon Rahil Attending Clinician Unavail able MONIQUE GALLO Attending Clinician Unavailab Nj Morgan APN Attending Clinician +- [phone] Monique Gallo MD Attending Clinician + [phone] Natalio Vigil MD Attending Clinician +[phone] NATALIO VIGIL Attending Clinician Unavailable See Fish MD Attending Clinician +[phone] Lilly Hinds MD Attending Clinician +[phone] ASYA WALSH Attending Clinician Unavailab CHUCHO Menendez Attending Clinician UnavailJacquelyn Mckeon RN Attending Clinician +[phone] Bartolome Haley MD Attending Clinician [phone] Gavin Singletary Attending Clinician +- [phone] CHUCHO DEL REAL JR Attending Clinician Unavaila ble [facility] Attending Clinician Unavailable Only, Adc Test Attending Clinician Unavailable Mindi HEARN, Lisa Ramos Attending Clinician +[phone] Nichelle Escamilla MD Attending Clinician +[phone] , [facility] Room 1 - Attending Clinician Un available Jayden Mitchell MD Attending Clinician Dara Golden MD Attending Clinician [phone] Admitting Clinician Unavailable SHAHZAD PRO Admitting Clinician Unavailable STEPH NUR Admitting Clinician Unavailable GERMÁN ALVARENGA Admitting Clinician Unavailable Germán Alvarenga DO Admitting Clinician [phone] JEROME SOARES Admitting Clinician Unavailable SAM MEREDITH Admitting Clinician UnavailSam Rodriguez MD Admitting Clinician +[phone] JAMSHID EARLYHKeri Admitting Clinician Unavaila BLADIMIR Allen Admitting Clinician Unavailable Bladimir Ferraro MD Admitting Clinician [phone] QUINN_Diogenes Admitting Clinician Unavailable APOLLO REESE Admitting Clinician Unavailable Apollo Reese MD Admitting Clinician +[phone] Manish Mckeon Rahil Admitting Clinician Unavail able MONIQUE GALLO Admitting Clinician Unavailab Monique Stevens MD Admitting Clinician +[phone] LILLY HINDS Admitting Clinician Unavailable Lilly Hinds MD Admitting Clinician Payers Payer Name Policy Type Policy Number Effective Date Expirati on Date Source MEDICARE PART A AND B [id number] 2011 00:00:00 MCR MCR [id number] [facility] [id number] MEDICARE PART A \\T\\ B [id number] 2011 00:00:00 [employer] [id number] 2011 00:00:00 [place] [employer] [id number] 2011 00:00:00 [employer] [place] [id number] 2011 00:00:00 Problems Condition Name Condition Details Condition Category Status Onset Date Resolution Date Last Treatment Date Treating Clinician Comments Source Open wound of left heel, initial encounter Open wound of left heel, initial encounter Disease Active 2024-1 0-28 00:00: 00 [facility] Acute pain of left knee Acute pain of left knee Disease Active 2023-07 0-01 00:00: 00 [facility] Lymphedema of both lower extremitie s Lymphedema of both lower extremitie s Disease Active 2023-07 0-01 00:00: 00 [facility] Acute pulmonary edema Acute pulmonary edema Disease Active 7-15 00:00: 00 [facility] Cardiomega ly Cardiomega ly Disease Active 7-15 00:00: 00 [facility] Ankle [...] 9-07 00:00: 00 [facility] Peripheral vascular disease Peripheral vascular disease Disease Active 9- 00:00: 00 [facility] At risk for falls At risk for falls Disease Active 9 00:00: 00 [facility] Unspecifie d abnormalit ies of gait and mobility Unspecifie d abnormalit ies of gait and mobility Disease Active 9- 00:00: 00 [facility] Controlled substance agreement signed Controlled substance agreement signed Disease Active 9 00:00: 00 [facility] Chronic diastolic congestive heart failure Chronic diastolic congestive heart failure Disease Active 8- 00:00: 00 [facility] Pulmonary hypertensi on Pulmonary hypertensi on Disease Active 8-21 00:00: 00 [facility] Lethargy Lethargy Disease Active 0 8-20 00:00: 00 [facility] Troponin I above reference range Troponin I above reference range Disease Active 2021-07 2-30 00:00: 00 [facility] UTI (urinary tract infection) UTI (urinary tract infection) Disease Active 2021-07 2-26 00:00: 00 [facility] Acute on chronic diastolic heart failure Acute on chronic diastolic heart failure Disease Active 2021-07 2-25 00:00: 00 [facility] Elevated brain natriureti c peptide (BNP) level Elevated brain natriureti c peptide (BNP) level Disease Active 2021-07 2-25 00:00: 00 [facility] Elevated brain natriureti c peptide (BNP) level Elevated brain natriureti c peptide (BNP) level Disease Active 2021-07 2-25 00:00: 00 [facility] Vomiting Vomiting Disease Active 2021-07 2-24 00:00: 00 [facility] Morbid obesity Morbid obesity Disease Active 8-11 00:00: 00 [facility] CHAD (obstructi ve sleep apnea) CHAD (obstructi ve sleep apnea) Disease Active 8-11 00:00: 00 [facility] Sepsis Sepsis Disease Active 8- 00:00: 00 [facility] Hypertensi ve emergency Hypertensi ve emergency Disease Active 8-11 00:00: 00 [facility] Acute bilateral venous stasis dermatitis Acute bilateral venous stasis dermatitis Disease Active 8-05 00:00: 00 [facility] Pneumonia due to infectious organism Pneumonia due to infectious organism Disease Active 8-05 00:00: 00 [facility] Positive blood culture Positive blood culture Disease Active 8-05 00:00: 00 [facility] Acute respirator y failure with hypoxia Acute respirator y failure with hypoxia Disease Active 8-05 00:00: 00 [facility] Bilateral pleural effusion Bilateral pleural effusion Disease Active 2022-0 8-05 00:00: 00 [facility] Pneumonia due to infectious organism Pneumonia due to infectious organism Disease Active 8-05 00:00: 00 [facility] Acute diastolic heart failure Acute diastolic heart failure Disease Active 8-05 00:00: 00 [facility] Acute [...] Edema of right lower leg Disease Active 2 00:00: 00 [facility] Mixed hyperlipid emia Mixed Hyperlipid emia Problem Active 07-30 00:00: 00 [facility] Cellulitis of right lower leg Cellulitis of right lower leg Disease Active 07-14 00:00: 00 [facility] Chronic hypokalemi a Chronic Hypokalemi a Problem Active 2020-07 00:00: 00 [facility] Anemia Anemia Problem Active 2020-07 00:00: 00 [facility] Stasis dermatitis Stasis Dermatitis Problem Active 2020-07 00:00: 00 [facility] Lymphedema of lower extremity Lymphedema of Lower Extremity Problem Active 2020-07 00:00: 00 [facility] Cardiac arrhythmia Cardiac Arrhythmia Problem Active 2020-07 0 00:00: 00 [facility] Body mass index 30+ - obesity Body Mass Index 30+ - Obesity Problem Active 01-13 00:00: 00 [facility] VTE (venous thromboemb olism) VTE (venous thromboemb [...] Hospital Restless legs Restless Legs Problem Active 527 00:00: 00 [facility] Chronic upper back pain Chronic upper back pain Disease Active 4 00:00: 00 [facility] Chronic pain syndrome Chronic Pain Syndrome Problem Active 4 00:00: 00 [facility] Pruritus of skin Pruritus of Skin Problem Active 4-29 00:00: 00 [facility] Hypokalemi a Hypokalemi a Problem Active 4-08 00:00: 00 [facility] Carpal tunnel syndrome Carpal Tunnel Syndrome Problem Active 4-08 00:00: 00 [facility] Respirator y tract congestion and cough Respirator y Tract Congestion and Cough Problem Active 3-09 00:00: 00 [facility] Gastroesop hageal reflux disease Gastroesop hageal Reflux Disease Problem Active 2-01 00:00: 00 [facility] Peripheral vascular disease Peripheral Vascular Disease Problem Active 1-14 00:00: 00 [facility] 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 Varicose Veins of the Leg with Ulcer and Eczema Problem Active 0 1-14 00:00: 00 [facility] Musculoske letal instabilit y Musculoske letal Instabilit y Problem Active 2019-07 020 00:00: 00 [facility] History of fracture History of Fracture Problem Active 2019-07 0 00:00: 00 [facility] History of fall History of Fall Problem Active 2019-07 0 00:00: 00 [facility] Difficulty walking Difficulty Walking Problem Active 2019-07 0 00:00: 00 [facility] Peripheral neuropathy due to type 2 diabetes mellitus Peripheral Neuropathy Due to Type 2 Diabetes Mellitus Problem Active 2019-07 008 00:00: 00 [facility] Cellulitis and abscess of right lower extremity Cellulitis and abscess of right lower extremity Disease Active 15 00:00: 00 [facility] Chronic kidney disease stage 3 Chronic Kidney Disease Stage 3 Problem Active -11 00:00: 00 [facility] Hypothyroi dism Hypothyroi dism Problem Active 0 03-13 00:00: 00 [facility] Diabetes mellitus Diabetes Mellitus Problem Active 03-13 00:00: 00 [facility] Iron deficiency anemia Iron Deficiency Anemia Problem Active 03-13 00:00: 00 [facility] Neuropathy Neuropathy Problem Active 03-13 00:00: 00 [facility] Glaucoma Glaucoma Problem Active 03-13 00:00: 00 [facility] Hypertensi ve disorder Hypertensi ve Disorder Problem Active 0 - 00:00: 00 [facility] Deep venous thrombosis Deep Venous Thrombosis Problem Active 0 - 00:00: 00 [facility] Lymphedema Lymphedema Problem Active 03-13 00:00: 00 [facility] Cellulitis Cellulitis Problem Active 9-10 00:00: 00 [facility] Memory impairment Memory Impairment Problem Active 9- 00:00: 00 [facility] Secondary restless legs syndrome Secondary Restless Legs Syndrome Problem Active 9-10 00:00: 00 [facility] History of transient ischemic attack History of transient ischemic attack Disease Active 8-06 00:00: 00 [facility] Cellulitis of unspecifie d part of limb Cellulitis of unspecifie d part of limb Disease Active 108 00:00: 00 [facility] Allergic [...] 2018-07 00:00: 00 [facility] USP (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 USP (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 Disease Active 2018-07 00:00: 00 [facility] Cellulitis of right leg Cellulitis of right leg Disease Active 2018-07 0 00:00: 00 [facility] Excessive daytime sleepiness Excessive daytime sleepiness Disease Active 07-05 00:00: 00 [facility] Displaced bimalleola r fracture Displaced bimalleola r fracture Disease Active 2016-07 00:00: 00 [facility] Fracture of calcaneus Fracture of calcaneus Disease Active 2016-07 00:00: 00 [facility] Controlled type 2 diabetes mellitus without complicati on, with long-term current use of insulin Controlled type 2 diabetes mellitus without complicati on, with long-term current use of insulin Disease Active 11-13 00:00: 00 [facility] Controlled type 2 diabetes mellitus without complicati on, with long-term current use of insulin Controlled type 2 diabetes mellitus without complicati on, with long-term current use of insulin Disease Active 11-13 00:00: 00 [facility] Essential hypertensi on Essential hypertensi on Disease Active 2014-07 00:00: 00 [facility] Hyperlipid emia Hyperlipid emia Disease Active 2014-07 00:00: 00 [facility] Hypothyroi dism (acquired) Hypothyroi dism (acquired) Disease Active 2014-07 00:00: 00 [facility] Hypothyroi dism, unspecifie d type Hypothyroi dism, unspecifie d type Disease Active 2014-07 00:00: 00 [facility] Allergies, Adverse Reactions, Alerts Allergy Name Allergy Type Status Severity Reaction(s) Onset Date Inactive Date Treating Clinician Comments Source MEPERIDI NE DRUG INGREDI Active Unknown-Cmnt 2023-07 00:00: 00 [facility] Meperidi ne Drug Allergy Active Unknown - See comments 2023-07 00:00: 00 [facility] LISINOPR [place] DRUG INGREDI Active Dizziness 2021-07 [...] [facility] CODEINE DRUG INGREDI Active Hallucinates 0 5-04 00:00: 00 [facility] Clindamy molly Drug Allergy Active Rash 0 5-04 00:00: 00 [facility] CLINDAMY MOLLY DRUG INGREDI Active Rash 2020-0 5-04 00:00: 00 [facility] Codeine Drug Allergy Active Dizziness 0 5-04 00:00: 00 [facility] SULFA (SULFONA MIDE ANTIBIOT ICS) Drug Class Active N/V - 00:00: 00 [facility] Sulfa (Sulfona mide Antibiot ics) Propensi ty to adverse reaction s Active Nausea and/or Vomiting - 00:00: 00 Per childcare provider, at rehab, tolerated fine with bendryl [facility] ERYTHROM YCIN DRUG Active Hives 2019-0 9-11 00:00: 00 [facility] METFORMI N DRUG INGREDI Active Hallucinates 0 -11 00:00: 00 [facility] Erythrom ycin Propensi ty to adverse reaction s Active Itching 0 9-11 00:00: 00 [facility] Metformi n Propensi ty to adverse reaction s Active Hallucinatio ns 2019-0 9-11 00:00: 00 "FREAKED OUT" FLOOR & CEILING MET, ROOM SPUIN [facility] ADHESIVE TAPE-MANDEEP ICONES DRUG Active Rash 2019-0 2-14 00:00: 00 [facility] Adhesive Tape-Mandeep icones Drug Allergy Active Rash 2019-0 2-14 00:00: 00 [facility] CIPROFLO XACIN DRUG INGREDI Active ITCHING 2017-07 0 00:00: 00 [facility] METRONID AZOLE DRUG INGREDI Active Unknown-Cmnt 2017-07 0 00:00: 00 [facility] Ciproflo xacin Propensi ty to adverse reaction s Active Itching 2017-07 00:00: 00 [facility] Metronid azole Propensi ty to adverse reaction s Active Unknown - See comments 2017-07 00:00: 00 [facility] LOSARTAN POTASSIU M DRUG INGREDI Active High SOB 0 03-22 00:00: 00 [facility] Losartan Potassiu m Propensi ty to adverse reaction s Active Cough 0 03-22 00:00: 00 [facility] PENTOXIF YLLINE DRUG INGREDI Active ITCHING 0 01-15 00:00: 00 [facility] Pentoxif ylline Propensi ty to adverse reaction s Active Shortness of Breath 0 01-15 00:00: 00 [facility] MACROLID [...] Active Rash 2014-08-12 00:00: 00 [facility] Metformi n Allergy to substanc e Active Moderate to severe Hallucinatio ns [facility] Cipro Allergy to substanc e Active Mild Chest pain [facility] Clindamy molly Allergy to substanc e Active Rash [facility] Losartan Allergy to substanc e Active Cough [facility] MACROLID E ANTIBIOT ICS Allergy to substanc e Active Chest pain [facility] PENICILL INS Allergy to substanc e Active [facility] Pentoxif ylline Allergy to substanc e Active Chest pain [facility] SULFA (SULFONA MIDE ANTIBIOT ICS) Allergy to substanc e Active Moderate to severe Vomiting [facility] Social History Social Habit Start Date Stop Date Quantity Comments Source History SDOH Alcohol Std Drinks [facility] History SDOH Alcohol Binge [facility] History SDOH Social Connections Get Together [facility] History SDOH Social Connections Latter-Day [facility] History SDOH Social Connections Membership [facility] History SDOH Social Connections Meetings [facility] Gender identity [facility] of tobacco use Passive smoker [facility] Alcoholic beverage intake 2024-09-20 00:00:00 2024-09-20 00:00:00 0 /d [facility] History of Social function 2024-04-03 00:00:00 2024-04-03 00:00:00 [facility] Alcohol intake 2023-10-30 00:00:00 2023-10-30 00:00:00 0 /d [facility] Exposure to SARS-CoV-2 (event) 2022-09-18 00:00:00 2022-09-28 10:27:00 Not sure [facility] History SDOH Alcohol Frequency 2022-06-28 00:00:00 2022-06-28 00:00:00 1 [facility] History SDOH Social Connections Phone 2022-06-28 00:00:00 2022-06-28 00:00:00 1 [facility] History SDOH Social Connections Living 2022-06-28 00:00:00 2022-06-28 00:00:00 7 [facility] History SDOH Physical Activity DPW 2022-06-28 00:00:00 2022-06-28 00:00:00 7 [facility] History SDOH Physical Activity MPS 2022-06-28 00:00:00 2022-06-28 00:00:00 2 [facility] History SDOH Financial 2022-06-28 00:00:00 2022-06-28 00:00:00 5 [facility] History SDOH Food Worry 2022-06-28 00:00:00 2022-06-28 00:00:00 1 [facility] History SDOH Food Scarcity 2022-06-28 00:00:00 2022-06-28 00:00:00 1 [facility] History SDOH Transport Med 2022-06-28 00:00:00 2022-06-28 00:00:00 2 [facility] History SDOH Transport Non-Med 2022-06-28 00:00:00 2022-06-28 00:00:00 2 [facility] Tobacco use and exposure 2022-02-06 00:00:00 2022-02-06 00:00:00 Smokeless tobacco non-user [facility] Tobacco Comment 2022-01-29 00:00:00 2022-01-29 00:00:00 exposed to 2nd hand smoke [facility] Education 2019-04-11 00:00:00 2019-04-11 00:00:00 21 [facility] Sex assigned at 1945 00:00:00 1945 00:00:00 [facility] Smoking Status Start Date Stop Date Source Never smoked tobacco [facility] Medications Ordered Medication Name Filled Medication Name Start Date Stop Date Current Medication? Ordering Clinician Indication Dosage Frequency Signature (SIG) Comments Components Source TRAZODONE 50 mg tablet 3-13 00:00: 00 Yes [id number] 50mg TAKE ONE (1) TABLET(S) BY MOUTH AT BEDTIME. [facility] glipiZIDE 2.5 mg Tab 08-27 00:00: 00 Yes TAKE ONE (1) TABLET BY MOUTH ONCE DAILY. [facility] insulin degludec 100 unit/mL (3 mL) In 08-21 00:00: 00 Yes [id number] Inject 32 units under the skin once every morning [facility] escitalopra m oxalate 10 mg tablet 08-14 00:00: 00 Yes [id number] 10mg TAKE ONE (1) TABLET(S) BY MOUTH EVERY MORNING. [facility] baclofen 10 mg tablet 07-30 00:00: 00 Yes [id number] TAKE ONE (1) TABLET(S) BY MOUTH THREE TIMES A DAY NEEDED FOR PAIN. [facility] PRAVASTATIN 80 mg tablet 07-19 00:00: 00 Yes [id number] 80mg TAKE ONE (1) TABLET(S) BY MOUTH AT BEDTIME. [facility] clopidogreL 75 mg tablet 07-10 00:00: 00 Yes [id number] 75mg TAKE ONE (1) TABLET(S) BY MOUTH EVERY MORNING. [facility] TRESIBA FLEXTOUCH U-100 100 unit/mL (3 mL) In 2023-07 00:00: 00 08-21 00:00 :00 No [id number] INJECT 32 UNITS UNDER THE SKIN ONCE EVERY MORNING. [facility] BACLOFEN 10 mg tablet 2023-07 00:00: 00 07-30 00:00 :00 No [id number] TAKE ONE (1) TABLET(S) BY MOUTH THREE TIMES A DAY NEEDED FOR PAIN. [facility] METOPROLOL TARTRATE 25 mg tablet 2023-07 00:00: 00 Yes [id number] 12.5mg TAKE ONE-HALF (1/2) TABLET(S) BY MOUTH TWICE A DAY. [facility] pravastatin 80 mg tablet 2023-07 00:00: 00 Yes [id number] 80mg TAKE ONE (1) TABLET(S) BY MOUTH AT BEDTIME. [facility] CLOPIDOGREL 75 mg tablet 2023-07 00:00: 00 07-10 00:00 :00 No [id number] TAKE ONE (1) TABLET(S) BY MOUTH ONCE A DAY IN THE MORNING. [facility] LEVOTHYROXI NE 25 mcg tablet 2023-07 00:00: 00 Yes [id number] 25ug TAKE ONE (1) TABLET(S) BY MOUTH EVERY MORNING. [facility] PANTOPRAZOL E 40 mg EC tablet 2023-07 00:00: 00 Yes [id number] 40mg TAKE ONE (1) TABLET(S) BY MOUTH EVERY MORNING. [facility] BACLOFEN 10 mg tablet 2023-07 00:00: 00 06-26 00:00 :00 No [id number] TAKE ONE (1) TABLET(S) BY MOUTH THREE TIMES A DAY NEEDED FOR PAIN. [facility] ELIQUIS 5 mg tablet 2023-07 00:00: 00 Yes [id number] TAKE ONE (1) TABLET(S) BY MOUTH EVERY MORNING AND EVENING. [facility] spironolact one 25 mg tablet 2023-07 00:00: 00 Yes [id number] TAKE ONE (1) TABLET(S) BY MOUTH IN THE MORNING. [facility] CLOPIDOGREL 75 mg tablet 2023-07 00:00: 00 06-08 00:00 :00 No [id number] TAKE ONE (1) TABLET(S) BY MOUTH ONCE A DAY IN THE MORNING. [facility] cephALEXin 500 mg capsule 2023-07 0-28 00:00: 00 05-08 05:59 :00 No [id number] 500mg Take 1 capsule by mouth 4 (four) times daily for 7 days. [facility] furosemide 40 mg tablet 2023-0725 00:00: 00 Yes [id number] TAKE ONE (1) TABLET BY MOUTH EVERY MORNING AND EVENING. [facility] baclofen 10 mg tablet 2023-0724 00:00: 00 05-28 00:00 :00 No [id number] TAKE ONE (1) TABLET(S) BY MOUTH THREE TIMES A DAY NEEDED FOR PAIN. [facility] Blood-Gluco se Sensor (FREESTYLE KANDI 3 SENSOR) Leigh Ann 2023-07 0 00:00: 00 Yes [id number] Use 3 times daily to check blood sugar, switch after 14 days [facility] Blood-Gluco se Meter,Ruth nuous (FREESTYLE KANDI 3 READER) Misc 2023-07 00:00: 00 Yes [id number] Use 3 times daily to check blood sugar [facility] CLOPIDOGREL 75 mg tablet 03-21 00:00: 00 05-09 00:00 :00 No [id number] TAKE ONE (1) TABLET(S) BY MOUTH ONCE A DAY IN THE MORNING. [facility] PRAVASTATIN 80 mg tablet 03-20 00:00: 00 06-18 00:00 :00 No [id number] 80mg TAKE ONE (1) TABLET(S) BY MOUTH AT BEDTIME. [facility] methocarbam oL 750 mg tablet 03-01 00:00: 00 05-10 00:00 :00 No TAKE ONE (1) TABLET(S) BY MOUTH EVERY EIGHT HOURS NEEDED FOR MUSCLE SORENESS. [facility] BACLOFEN 10 mg tablet 02-23 00:00: 00 04-26 00:00 :00 No [id number] TAKE ONE (1) TABLET(S) BY MOUTH THREE TIMES A DAY NEEDED FOR RESTLESS LEGS PAIN. [facility] CLOPIDOGREL 75 mg tablet 02-15 00:00: 00 03-21 00:00 :00 No [id number] TAKE ONE (1) TABLET(S) BY MOUTH IN THE MORNING. [facility] TRESIBA FLEXTOUCH U-100 100 unit/mL (3 mL) InPn 02-09 00:00: 00 06-28 00:00 :00 No [id number] INJECT 32 UNITS UNDER THE SKIN ONCE EVERY MORNING. [facility] traMADoL 50 mg tablet 01-30 00:00: 00 Yes [id number] 50mg Take 1 tablet by mouth every 6 (six) hours as needed for Pain (scale 4-6). Indication s: chronic pain [facility] pregabalin 50 mg capsule 01-30 00:00: 00 Yes [id number] TAKE ONE (1) CAPSULE(S) BY MOUTH EVERY NIGHT AT BEDTIME. [facility] nystatin 100,000 unit/gram powder 01-30 00:00: 00 05-10 00:00 :00 No [id number] Apply to area(s) 3 (three) times daily as needed for Rash. [facility] furosemide 40 mg tablet 01-30 00:00: 00 04-27 00:00 :00 No [id number] TAKE ONE (1) TABLET BY MOUTH EVERY MORNING AND EVENING. [facility] hydralAZINE (APRESOLINE ) [...] (PLAVIX) 75 mg tablet 01-12 00:00: 00 02-15 00:00 :00 No [id number] 75mg Take 1 tablet by mouth in the morning. [facility] hydrOXYzine 25 mg tablet 12-26 00:00: 00 Yes [id number] 25mg Take 1 tablet by mouth at bedtime. [facility] nystatin 100,000 unit/gram cream 12-26 00:00: 00 04-03 00:00 :00 No [id number] Apply to area(s) 2 (two) times daily. [facility] cefpodoxime 100 mg tablet 12-26 00:00: 00 04-03 00:00 :00 No [id number] 100mg Take 1 tablet by mouth in the morning and 1 tablet in the evening. [facility] pramipexole 0.75 mg tablet 12-21 00:00: 00 Yes [id number] .75mg TAKE ONE (1) TABLET(S) BY MOUTH AT BEDTIME. [facility] PRAVASTATIN 80 mg tablet 12-21 00:00: 00 03-20 00:00 :00 No [id number] 80mg TAKE ONE (1) TABLET(S) BY MOUTH AT BEDTIME. [facility] baclofen 10 mg tablet 12-21 00:00: 00 02-23 00:00 :00 No [id number] 10mg Take 1 tablet by mouth 3 (three) times daily as needed for Pain (scale 4-6) (for restless legs, may make you sleepy). [facility] insulin aspart U-100 100 unit/mL (3 mL) injection 12-08 00:00: 00 Yes [id number] INJECT THREE TIMES DAILY BEFORE MEALS 12 UNITS AT BREAKFAST, 14 UNITS AT LUNCH, AND 14 UNITS AT SUPPER. IF GLUCOSE > 150, SLIDING SCALE UTILIZED. [facility] METOPROLOL TARTRATE 25 mg tablet 12-08 00:00: 00 06-19 00:00 :00 No [id number] TAKE ONE-HALF (1/2) TABLET(S) BY MOUTH TWICE A DAY (MORNING AND EVENING). [facility] ondansetron 4 mg disintegrat ing tablet 11-20 00:00: 00 Yes [id number] 4mg Take 1 tablet by mouth every 8 (eight) hours as needed for Nausea and Vomiting (N/V). [facility] cephALEXin 500 mg capsule 11-20 00:00: 00 12-26 00:00 :00 No [id number] 500mg Take 1 capsule by mouth in the morning and 1 capsule in the evening. [facility] levothyroxi ne 25 mcg tablet 11-10 11:21: 47 11-10 00:00 :00 No 25ug Take 1 tablet by mouth every morning. [facility] pravastatin 40 mg tablet 11-10 11:04: 59 Yes 40mg Take 1 tablet by mouth at bedtime. [facility] pravastatin 40 mg tablet 11-10 11:04: 59 05-10 00:00 :00 No 40mg Take 1 tablet by mouth at bedtime. [facility] semaglutide (OZEMPIC) 2 mg/dose (8 mg/3 mL) PnIj 11-10 00:00: 00 05-10 00:00 :00 No [id number] Inject 2mg under skin weekly DX E11.65 REFILLS CAN BE ADDRESSED AT FOLLOW UP APPT 11/22/23 [facility] benzonatate 100 mg capsule 11-10 00:00: 00 04-03 00:00 :00 No [id number] TAKE ONE (1) OR TWO (2) CAPSULE(S) BY MOUTH EVERY EIGHT HOURS NEEDED FOR COUGH. [facility] traMADoL 50 mg tablet 11-10 00:00: 00 01-30 00:00 :00 No [id number] 50mg Take 1 tablet by mouth every 6 (six) hours as needed for Pain (scale 4-6). Indication s: chronic pain [facility] nystatin 100,000 unit/gram powder 11-10 00:00: 00 01-30 00:00 :00 No [id number] Apply to area(s) 3 (three) times daily as needed for Rash. [facility] INSULIN ASPART U-100 100 unit/mL (3 mL) injection 10-31 00:00: 00 12-08 00:00 :00 No [id number] INJECT THREE TIMES DAILY BEFORE MEALS 12 [...] 10-26 00:00: 00 01-30 00:00 :00 No [id number] TAKE ONE (1) CAPSULE(S) BY MOUTH EVERY NIGHT AT BEDTIME. [facility] semaglutide (OZEMPIC) 2 mg/dose (8 mg/3 mL) PnIj 10-26 00:00: 00 10-31 00:00 :00 No REFILLS CAN BE ADDRESSED AT FOLLOW UP APPT 11/22/23 [facility] TRESIBA FLEXTOUCH U-100 100 unit/mL (3 mL) InPn 09-27 00:00: 00 02-09 00:00 :00 No [id number] INJECT 32 UNITS UNDER THE SKIN ONCE EVERY MORNING. [facility] pravastatin 80 mg tablet 09-22 00:00: 00 12-21 00:00 :00 No [id number] 80mg TAKE ONE (1) TABLET(S) BY MOUTH AT BEDTIME. [facility] pravastatin 40 mg tablet 09-20 10:41: 24 Yes 40mg Take 1 tablet by mouth at bedtime. [facility] empaglifloz in (JARDIANCE) 10 mg tablet 3-20 00:00: 00 05-10 00:00 :00 No [id number] 10mg Take 1 tablet by mouth in the morning. [facility] spironolact one 25 mg tablet 3-20 00:00: 00 05-09 00:00 :00 No [id number] 25mg Take 1 tablet by mouth in the morning. [facility] insulin aspart U-100 (NOVOLOG FLEXPEN U-100 INSULIN) 100 unit/mL (3 mL) injection 09-04 00:00: 00 10-31 00:00 :00 No [id number] INJECT THREE TIMES DAILY BEFORE MEALS 12 UNITS AT BREAKFAST, 14 UNITS AT LUNCH, AND 14 UNITS AT SUPPER. IF GLUCOSE > 150, SLIDING SCALE UTILIZED. [facility] ESCITALOPRA M OXALATE 10 mg tablet 219 00:00: 00 08-14 00:00 :00 No [id number] 10mg TAKE ONE (1) TABLET(S) BY MOUTH EVERY MORNING. [facility] TRAZODONE 50 mg tablet 1-16 00:00: 00 Yes [id number] 50mg TAKE ONE (1) TABLET(S) BY MOUTH AT BEDTIME. [facility] pravastatin 40 mg tablet 07-13 08:40: 08 Yes 40mg Take 1 tablet by mouth at bedtime. [facility] levothyroxi ne 25 mcg tablet 07-13 08:40: 08 Yes 25ug Take 1 tablet by mouth every morning. [facility] ammonium lactate 12 % cream 07-13 08:40: 08 Yes APPLY TO AFFECTED AREA TWICE A DAY [facility] latanoprost , PF, 0.005 % Drop 07-13 08:40: 08 Yes 1[drp] Place 1 Drop in both eyes at bedtime. [facility] latanoprost , PF, 0.005 % Drop 07-13 08:40: 08 Yes 1[drp] Place 1 Drop in both eyes at bedtime. [facility] polyethylen e glycol 3350 (MIRALAX) 17 gram/dose powder 07-13 08:40: 08 Yes 17g Take 17 g by mouth in the morning. [facility] montelukast 10 mg tablet 07-13 08:40: 08 05-10 00:00 :00 No 10mg Take 1 tablet by mouth at bedtime. [facility] hydrocortis one 1 % cream 07-13 08:40: 08 05-10 00:00 :00 No hydrocorti sone 1 % topical cream APPLY TO AFFECTED AREA 3 TIMES A DAY NEEDED FOR ITCHING [facility] pantoprazol e 40 mg EC tablet 07-13 08:40: 08 03-12 00:00 :00 No 40mg Take 1 tablet by mouth in the morning. [facility] clotrimazol e 1 % topical cream 07-13 08:40: 08 12-26 00:00 :00 No Use as directed [facility] nystatin 100,000 unit/gram powder 07-12 00:00: 00 11-10 00:00 :00 No [id number] APPLY TO AFFECTED AREA THREE TIMES A [...] mouth at bedtime. [facility] fluticasone furoate 200 mcg/actuati on DsDv 07-08 14:08: 55 Yes INHALE 1 PUFF BY MOUTH EVERY 24 HOURS [facility] venlafaxine XR 75 mg 24 hr capsule 07-08 14:08: 55 05-10 00:00 :00 No 75mg Take 1 capsule by mouth in the morning. [facility] fluticasone propionate 50 mcg/actuati on nasal spray 07-08 14:08: 05-10 00:00 :00 No 2{spray } Use 2 Sprays in each nostril once daily as needed. [facility] fluticasone furoate 200 mcg/actuati on DsDv 07-08 14:08: 05-10 00:00 :00 No INHALE 1 PUFF BY MOUTH EVERY 24 HOURS [facility] diphenhydrA MINE (BANOPHEN) 25 mg capsule 07-08 14:: 04-03 00:00 :00 No 25mg Take 1 capsule by mouth every 6 (six) hours as needed. [facility] albuterol (VENTOLIN HFA) 90 mcg/actuati on inhaler 07-08 14:: 04-03 00:00 :00 No INHALE 2 PUFFS EVERY 6 (SIX) HOURS IF NEEDED FOR WHEEZING OR SHORTNESS OF BREATH FOR UP TO 10 DAYS [facility] pravastatin 40 mg [...] 07-08 00:00: 00 12-26 00:00 :00 No [id number] 25mg Take 1 tablet by mouth every [...] 2022-07 00:00: 00 01-30 00:00 :00 No [id number] 20mg Take 0.5 tablets by mouth every morning and evening. [facility] pregabalin 50 mg capsule 2022-07 00:00: 00 10-26 00:00 :00 No [id number] TAKE ONE (1) CAPSULE(S) BY MOUTH AT [...] FOR 90 DAYS. [facility] midodrine 5 mg tablet 2022-07 10:32: 20 06-22 00:00 :00 No TAKE 1 TABLET BY MOUTH 3 (THREE) TIMES DAILY FOR 90 DAYS. [facility] dapaglifloz in propanediol (XIGA) 10 mg tablet 2022-07 10:31: 57 06-22 00:00 :00 No 10mg Take 1 tablet by mouth in the morning. [facility] dapaglifloz in propanediol (FARXIGA) 10 mg tablet 2022-07 10:31: 57 06-22 00:00 :00 No 10mg Take 1 tablet by mouth in the morning. [facility] aspirin 81 mg chewable tablet 2022-07 10:31: 47 06-22 00:00 :00 No Chew 1 tablet every day by oral route. [facility] aspirin 81 mg chewable tablet 2022-07 10:31: 47 06-22 00:00 :00 No Chew 1 tablet every day by oral route. [facility] metOLazone 5 mg tablet 2022-07 10:31: 06-22 00:00 :00 No TAKE 1 TABLET BY MOUTH EVERY 3RD DAY [facility] metOLazone 5 mg tablet 2022-07 10:31: 06-22 00:00 :00 No TAKE 1 TABLET [...] Tuesday and Tuesday. [facility] omeprazole 40 mg capsule 2022-07 08:33: 38 06-06 00:00 :00 No 40mg Take 1 capsule by mouth every morning. [facility] insulin [...] propionate 50 mcg/actuati on nasal spray 2022-07 08:08: 04 Yes 2{spray } Use 2 [...] sugar diagnostic strip 2022-07 00:00: 00 Yes [id number] Use as directed to monitor blood sugar TID and PRN. [facility] blood sugar diagnostic (ACCU-CHEK PHILLIP PLUS TEST STRP) strip 2022-07 00:00: 00 Yes [id number] 1{strip } Take 1 Strip in the morning and 1 Strip at noon and 1 Strip in the evening. Use as directed [facility] levothyroxi ne 25 mcg tablet 2022-07 00:00: 00 06-01 00:00 :00 No [id number] 25ug Take 1 tablet by mouth every morning. [facility] pantoprazol e 40 mg EC tablet 2022-07 00:00: 00 06-01 00:00 :00 No [id number] 40mg Take 1 tablet by mouth in the morning. [facility] cephALEXin (KEFLEX) 500 mg capsule 2022-07 00:00: 00 06-14 05:59 :00 No [id number] 500mg Take 1 capsule by mouth in the morning and 1 capsule in the evening. Do all this for 7 days. [facility] mupirocin 2 % ointment 2022-07 00:00: 00 06-09 05:59 :00 No [id number] Apply to area(s) 3 (three) times daily for 7 days. [facility] mupirocin 2 % ointment 2022-07 00:00: 00 06-09 05:59 :00 No [id number] Apply to area(s) 3 (three) times daily for 7 days. [facility] empaglifloz in (JARDIANCE) 10 mg 2022-07 00:00: 00 09-20 00:00 :00 No [id number] 10mg Take 1 tablet by mouth in the morning. [facility] insulin degludec 100 unit/mL Soln 2022-0714 00:00: 00 09-27 00:00 :00 No [id number] 32U inject 32 Units under the skin in the morning. Morning [facility] insulin degludec (TRESIBA FLEXTOUCH U-100) 100 unit/mL (3 mL) InPn 2022-07 00:00: 00 09-27 00:00 :00 No [id number] 32U inject 32 Units under the skin every morning. [facility] insulin aspart U-100 (NOVOLOG FLEXPEN U-100 INSULIN) 100 unit/mL (3 mL) injection 2022-07 00:00: 00 09-04 00:00 :00 No [id number] TIDAC - 12 units at breakfast, 14 units at lunch, and 14 units at supper. If glucose > 150, sliding scale utilized. [facility] clopidogreL (PLAVIX) 75 mg tablet 2022-07 00:00: 00 01-11 00:00 :00 No [id number] 75mg Take 1 tablet by mouth in [...] semaglutide (OZEMPIC) 1 mg/dose (4 mg/3 mL) Ij 2022-07 00:00: 00 10-26 00:00 :00 No [id number] 1mg inject 1 mg under the skin [...] 2022-07 00:00: 00 05-21 05:59 :00 No [id number] 25ug Take 1 tablet by mouth every morning for 30 days. [facility] pantoprazol e 40 mg EC tablet 2022-07 00:00: 00 05-21 05:59 :00 No [id number] 40mg Take 1 tablet by mouth in the morning for 30 days. [facility] polyethylen e glycol 3350 17 gram powder 2022-07 00:00: 00 05-21 05:59 :00 No [id number] 17g Take 1 Packet by mouth in the morning for 30 days. [facility] spironolact one 25 mg tablet 2022-07 00:00: 00 05-21 05:59 :00 No [id number] 25mg Take 1 tablet by mouth in the morning for 30 days. [facility] KCL 20 mEq tablet 2022-07 00:00: 00 05-21 05:59 :00 No [id number] 20meq Take 1 tablet by mouth in [...] 2022-07 00:00: 00 05-20 05:59 :00 No [id number] 650mg Take 2 tablets by mouth every 6 (six) hours as needed for Pain (scale 1-3) for up to 30 days. [facility] baclofen 10 mg tablet 2022-07 00:00: 00 05-20 05:59 :00 No [id number] 5mg Take 0.5 tablets by mouth 2 (two) times daily as needed for Pain (scale 7-10) for up to 30 days. [facility] pravastatin 80 mg tablet 2022-07 00:00: 00 05-20 05:59 :00 No [id number] 80mg Take 1 tablet by mouth at bedtime for 30 days. [facility] empaglifloz in 10 mg 2022-07 00:00: 00 05-20 05:59 :00 No [id number] 10mg Take 1 tablet by mouth in the morning for 30 days. [facility] nystatin (NYSTOP) 100,000 unit/gram powder 2022-07 00:00: 00 05-05 04:59 :00 No [id number] Apply to area(s) 2 (two) times daily for 30 doses. [facility] cloNIDine (CATAPRES) tablet 0.3 mg 2022-07 10:45: 00 04-18 09:54 :00 No .3mg 0.3 mg, Oral, ONCE, 1 dose, On 04/18/23 at 0545, Routine [facility] pravastatin (PRAVACHOL) tablet 80 mg 2022-07 02:00: 00 Yes 80mg 80 mg, Oral, QHS, First dose on 04/17/23 at 2100, Until Discontinu ed, Routine [facility] traMADoL (ULTRAM) tablet 50 mg 2022-07 19:03: 19 Yes 50mg 50 mg, Oral, Q6HPRN, Starting on 04/17/23 at 1403, Until Discontinu ed, Routine, Pain (scale 4-6), leg pain [facility] hydralAZINE (APRESOLINE ) injection 10 mg 2022-07 19:02: 48 Yes 10mg 10 mg, Slow IV Push, Q6HPRN, Starting on 04/17/23 at 1402, Until Discontinu ed, STAT, DBP=>100; SBP=>160 [facility] KCL (KLOR-CON M20) tablet 20 mEq 2022-07 14:00: 00 Yes 20meq 20 mEq, Oral, DAILY, First dose on [place] 04/17/23 at 0900, Until Discontinu ed, [facility] 5 mg 2022-07 16:28: 19 04-17 19:03 :41 No 5mg 5 mg, Slow IV Push, Q6HPRN, Starting on 04/16/23 at 1128, Until [place] 04/17/23 at 1403, STAT, DBP=>100; SBP=>160 [facility] KCL (KLOR-CON M20) tablet 40 mEq 2022-07 16:00: 00 04-16 17:44 :00 No 40meq 40 mEq, Oral, ONCE, 1 dose, On 04/16/23 at 1100, Routine [facility] insulin glargine (LANTUS U-100) injection 20 Units 2022-07 02:00: 00 Yes 20U 20 Units, Subcutaneo us, QHS, First dose (after last modificati on) on Tue04/15/23 at 2100, Until Discontinu ed, Routine [facility] furosemide (LASIX) injection 20 mg 2022-07 01:00: 00 Yes 20mg 20 mg, Slow IV Push, Q12H, First dose on Tue04/15/23 at 2000, Until Discontinu ed, Routine [facility] metoclopram cory HCl (REGLAN) injection 10 mg 2022-07 0-12 17:30: 00 Yes 10mg 10 mg, Slow IV Push, Q6HPRN, Starting on Devika12/23 at 1230, Until Discontinu ed, Routine, Nausea and Vomiting (N/V) [facility] furosemide (LASIX) tablet 20 mg 2022-07 17:30: 00 04-16 00:34 :17 No 20mg 20 mg, Oral, QAM+PM, First dose on Tue04/14/23 at 1230, Until Discontinu ed, Routine [facility] levothyroxi ne (SYNTHROID) tablet 25 mcg 2022-07 11:00: 00 Yes 25ug 25 mcg, Oral, QAM-0600, First dose on Tue04/14/23 at 0600, Until Discontinu ed, [facility] pramipexole (MIRAPEX) tablet 0.75 mg 2022-07 06:00: 00 Yes .75mg 0.75 mg, Oral, QHS, First dose (after last modificati on) on Tue04/14/23 at 0100, Until Discontinu ed, Routine [facility] traZODone (DESYREL) tablet 50 mg 2022-07 02:00: 00 Yes 50mg 50 mg, Oral, QHS, First dose on Tue04/13/23 at 2100, Until Discontinu ed, Routine [facility] traMADoL (ULTRAM) tablet 50 mg 2022-07 02:00: 00 Yes 50mg 50 mg, Oral, QHS, First dose on Tue04/13/23 at 2100, Until Discontinu ed [facility] insulin glargine (LANTUS U-100) injection 30 Units 2022-07 02:00: 00 04-16 00:36 :09 No 30U 30 Units, Subcutaneo us, QHS, First dose on Tue04/13/23 at 2100, Until Discontinu ed, Routine [facility] cefTRIAXone (ROCEPHIN) 1,000 mg in NaCl 0.9% (NS) 100 mL MINI-BAG 2022-07 01:15: 00 04-19 01:44 :00 No 1000mg 1,000 mg, IV Piggyback, Q24H ABX, 6 doses, First dose on Tue04/13/23 at 2014, Last dose on Tue04/18/23 at 2014, Administer over 30 Minutes, 100 mL
Reas on for Anti-Infec tive: Documented Infection< br>Documen steph Infection Site: Urine
D uration of Therapy: 7 days [facility] apixaban (ELIQUIS) tablet 5 mg 2022-07 [...] Tue04/13/23 at 0900, Until Discontinu ed, Routine [facility] polyethylen e glycol 3350 powder 17 g 2022-07 14:00: 00 Yes 17g 17 g, Oral, DAILY, First dose on Tue04/13/23 at 0900, Until Discontinu ed, Routine [facility] pantoprazol e (PROTONIX) EC tablet 40 mg 2022-07 14:00: 00 Yes 40mg 40 mg, Oral, DAILY, First dose on Tue04/13/23 at 0900, Until Discontinu ed, Routine [facility] escitalopra m oxalate (LEXAPRO) tablet 10 mg 2022-07 14:00: 00 Yes 10mg 10 mg, Oral, DAILY, First dose on Tue04/13/23 at 0900, Until Discontinu ed, Routine [facility] clopidogreL (PLAVIX) 75 mg tablet 75 mg 2022-07 14:00: 00 Yes 75mg 75 mg, Oral, DAILY, First dose on Tue04/13/23 at 0900, Until Discontinu ed, Routine [facility] baclofen (LIORESAL) tablet 5 mg 2022-07 14:00: 00 Yes 5mg 5 mg, Oral, Q12H, First dose on Tue04/13/23 at 0900, Until Discontinu ed, Routine [facility] furosemide (LASIX) tablet 40 mg 2022-07 14:00: 00 04-14 00:11 :24 No 40mg 40 mg, Oral, QAM+PM, First dose on Tue04/13/23 at 0900, Until Discontinu ed, Routine [facility] ondansetron (ZOFRAN (PF)) injection 4 mg 2022-07 13:45: 00 04-13 12:53 :00 No 4mg 4 mg, Slow IV Push, ONCE, On Tue04/13/23 at 0845, For 1 dose
Do ses of ondansetro n 16 mg and above need to be administer ed via IV piggyback. For Dose >=24mg ECG monitoring is advisable.
[facility] pregabalin (LYRICA) capsule 50 mg 2022-07 13:00: 00 Yes 50mg 50 mg, Oral, BID, First dose on Tue04/13/23 at 0800, Until Discontinu ed, Routine [facility] nystatin (NYSTOP) powder 2022-07 13:00: 00 Yes Topical, BID, First dose on Tue04/13/23 at 0800, Until Discontinu ed, Routine [facility] metoprolol tartrate (LOPRESSOR) tablet 12.5 mg 2022-07 13:00: 00 Yes 12.5mg 12.5 mg, Oral, BID, First dose on Tue04/13/23 at 0800, Until Discontinu ed, Routine [facility] FENTanyl PF (SUBLIMAZE (PF)) injection 12.5 mcg 2022-07 09:14: 51 Yes 12.5ug 12.5 mcg, Slow IV Push, Q6HPRN, Starting on Tue04/13/23 at 0414, Until Discontinu ed, Routine, Pain (scale 4-6), Pain (scale 7-10) [facility] acetaminoph en (TYLENOL) 325 mg Cap 2022-07 07:50: 16 Yes Take by mouth as needed. [facility] insulin aspart U-100 [...] ONCE, 1 dose, On Tue04/12/23 at 1915, GI [facility] furosemide (LASIX) injection 20 mg 2022-07 00:00: 00 04-13 00:06 :00 No 20mg 20 mg, IV Push, ONCE, 1 dose, On Tue04/12/23 at 1900, GI [facility] acetaminoph en (TYLENOL) tablet 1,000 mg 2022-07 23:00: 00 04-13 00:06 :00 No 1000mg 1,000 mg, Oral, ONCE, 1 dose, On Tue04/12/23 at 1800, GI [facility] cefTRIAXone (ROCEPHIN) 1,000 [...] 03-29 00:00: 00 04-19 00:00 :00 No [id number] 75mg Take 1 tablet by mouth in the morning. [facility] carvediloL (COREG) tablet 6.25 mg 03-28 22:00: 00 Yes 6.25mg 6.25 mg, Oral, BID MEALS, First dose on Tue03/28/23 at 1700, Until Discontinu ed, Routine [facility] latanoprost (XALATAN) 0.005 % ophthalmic drops 03-28 14:22: 53 Yes 1[drp] Place 1 Drop in both eyes every evening. [facility] acetaminoph en (TYLENOL) 325 mg Cap 03-28 14:22: 53 Yes Take by mouth as needed. [facility] ity [facility] furosemide (LASIX) tablet 40 mg 03-28 14:00: 00 Yes 40mg 40 mg, Oral, QAM+PM, First dose (after last modificati on) on Tue03/28/23 at 0900, Until Discontinu ed, Routine [facility] valsartan (DIOVAN) tablet 20 mg 03-28 14:00: 00 03-28 15:52 :50 No 20mg 20 mg, Oral, BID, First dose on Tue03/28/23 at 0900, Until Discontinu ed, Routine [facility] oxymetazoli ne (OXYMETAZOL INE HCL) 0.05 % nasal spray 1 [place] 03-28 13:00: 00 03-30 12:59 :00 No 1{spray } 1 [place], Nasal, BID, 4 doses, First dose on Tue03/28/23 at 0800, Last dose on Tue03/29/23 at 2000, Routine [facility] metoprolol tartrate (LOPRESSOR) tablet 12.5 mg 03-28 12:00: 00 03-28 15:49 :19 No 12.5mg 12.5 mg, Oral, BID, First dose on Tue03/28/23 at 0700, Until Discontinu ed, Routine [facility] aspirin (ASPIRIN LOW DOSE) 81 mg EC tablet 03-28 11:45: 42 03-28 00:00 :00 No 81mg Take 1 tablet by mouth in the morning. [facility] ity [facility] traMADoL 50 mg tablet 03-28 00:00: 00 [...] Discontinu ed, Routine
Indicatio ns: DVT/PE [facility] acetaminoph en (TYLENOL) tablet 650 mg 03-27 [...] HR <40 for more than 2 min [facility] ipratropium -albuteroL (DUONEB) 0.5 mg-3 mg(2.5 mg base)/3 mL nebulizer solution 3 mL 03-26 17:00: 00 Yes 3mL 3 mL, Inhalation , QID, First dose on Tue03/26/23 at 1200, Until Discontinu ed, Routine Univers [facility] guaiFENesin (FENESIN IR) tablet 400 mg 03-26 17:00: 00 Yes 400mg 400 mg, Oral, Q4H, First dose on Tue03/26/23 at 1200, Until Discontinu ed, Routine [facility] acetylcyste ine (MUCOMYST) 200 mg/mL (20 %) inhalation solution 200 mg 03-26 17:00: 00 03-30 16:59 :00 No 1mL 200 mg (1 mL), Inhalation , QID, 16 doses, First dose on Tue03/26/23 at 1200, Last dose on Tue03/30/23 at 0800, Routine [facility] loratadine (CLARITIN) tablet 10 mg 03-26 16:15: 00 Yes 10mg 10 mg, Oral, DAILY, First dose on Tue03/26/23 at 1115, Until Discontinu ed, Routine [facility] albuterol (VENTOLIN HFA) 90 mcg/actuati on inhaler 03-26 14:55: 38 Yes 2{puff} INHALE 2 PUFFS EVERY 6 (SIX) HOURS IF NEEDED FOR WHEEZING OR SHORTNESS OF BREATH FOR UP TO 10 DAYS [facility] clopidogreL (PLAVIX) 75 mg tablet 75 mg 03-26 14:00: 00 Yes 75mg 75 mg, Oral, DAILY, First dose on Tue03/26/23 at 0900, Until Discontinu ed, Routine [facility] spironolact one (ALDACTONE) tablet 25 mg 03-26 14:00: 00 Yes 25mg 25 mg, Oral, DAILY, First dose (after last modificati on) on Tue03/26/23 at 0900, Until Discontinu ed, Routine [facility] furosemide (LASIX) tablet 40 mg 03-26 14:00: 00 03-27 11:50 :26 No 40mg 40 mg, Oral, QAM+PM, First dose on Tue03/26/23 at 0900, Until Discontinu ed, Routine [facility] atropine injection 1 mg 03-26 07:05: 00 03-26 07:04 :00 No 1mg 1 mg, IV Push, ONCE, 1 dose, On Tue03/26/23 at 0215, Routine [facility] atropine injection 1 mg 03-26 04:30: 00 03-26 04:22 :00 No 1mg 1 mg, IV Push, ONCE, 1 dose, On Tue03/25/23 at 2330, Routine [facility] FENTanyl PF (SUBLIMAZE (PF)) injection 25 mcg [...] dose, On Tue03/25/23 at 1615, Routine [facility] acetaminoph en ADULT (OFIRMEV) injection 1,000 mg 03-25 20:56: 19 03-26 20:55 :19 No 1000mg 1,000 mg, IV Infusion, at 400 mL/hr Administer over 15 Minutes, Q8HPRN, Starting on Tue03/25/23 at 1556, Until 03/26/23 at 1555, Routine, Pain (scale 1-3)
In [...] at 1457, Routine, Intra-op [facility] dexamethaso ne (DECADRON PHOSPHATE) injection 03-25 19:27: 00 03-25 19:57 :36 No IV Push, ONCE INTRA PROCEDURE, Starting on Tue03/25/23 at 1427, Until Tue03/25/23 at 1457, Routine, Intra-op [facility] iodixanoL (VISIPAQUE 270-150 mL) injection 03-25 18:39: 00 03-25 20:07 :46 No PRN, Starting on Tue03/25/23 at 1339, Until Tue03/25/23 at 1507, Routine, Intra-op [facility] heparin 10,000 units in NS 1000 mL for vascular 03-25 18:39: 00 03-25 20:07 :46 No PRN, Starting on Tue03/25/23 at 1339, Intra-op [facility] glycopyrrol ate (ROBINUL) injection 03-25 18:28: 00 03-25 19:57 :36 No Intravenou s, ONCE INTRA PROCEDURE, Starting on Tue03/25/23 at 1328, Until Tue03/25/23 at 1457, Routine, Intra-op [facility] heparin (1,000 unit/mL, 10 mL vial) 03-25 18:23: 00 03-25 19:57 :36 No ONCE INTRA PROCEDURE, Starting on Tue03/25/23 at 1323, Until Tue03/25/23 at 1457, Routine, Intra-op [facility] esmoloL (BREVIBLOC) injection 03-25 17:50: 00 03-25 19:57 :36 No Slow IV Push, ONCE INTRA PROCEDURE, Starting on Tue03/25/23 at 1250, Until Tue03/25/23 at 1457, Routine, Intra-op [facility] rocuronium (ZEMURON) injection 03-25 17:46: 00 03-25 19:57 :36 No IV Push, ONCE INTRA PROCEDURE, Starting on Tue03/25/23 at 1246, Until Tue03/25/23 at 1457, Routine, Intra-op [facility] propofoL IV infusion 03-25 17:46: 00 03-25 19:57 :36 No IV Infusion, ONCE INTRA PROCEDURE, Starting on Tue03/25/23 at 1246, Until Tue03/25/23 at 1457, Routine, Intra-op [facility] lidocaine 1% (XYLOCAINE) 100 mg/10 mL (1 %) injection 03-25 17:46: 00 03-25 19:57 :36 No Slow IV Push, ONCE INTRA PROCEDURE, Starting on Tue03/25/23 at 1246, Until Tue03/25/23 at 1457, Routine, Intra-op [facility] ePHEDrine 25 mg/5 mL (5 mg/mL) syringe 03-25 17:44: 00 03-25 19:57 :36 No Slow IV Push, ONCE INTRA PROCEDURE, Starting on Tue03/25/23 at 1244, Until Tue03/25/23 at 1457, Routine, Intra-op [facility] lactated ringers IV infusion 03-25 17:35: 00 03-25 19:57 :36 No IV Infusion, CONTINUOUS PRN, Starting on Tue03/25/23 at 1235, Until Tue03/25/23 at 1457, Routine, Intra-op [facility] FENTanyl PF (SUBLIMAZE (PF)) injection 03-25 17:31: 00 03-25 19:57 :36 No Intravenou s, ONCE INTRA PROCEDURE, Starting on Tue03/25/23 at 1231, Until Tue03/25/23 at 1457, Routine, Intra-op [facility] insulin glargine (LANTUS U-100) injection 32 Units 03-25 14:00: 00 Yes 32U 32 Units, Subcutaneo us, DAILY, First dose (after last modificati on) on Tue03/25/23 at 0900, Until Discontinu ed, Routine [facility] hydralAZINE (APRESOLINE ) injection 10 mg 03-25 13:09: 53 Yes 10mg 10 mg, Slow IV Push, Q4HPRN, Starting on Tue03/25/23 at 0809, Until Discontinu ed, DBP=>100; SBP=>160 Univers [facility] KCL (KLOR-CON M20) tablet 20 mEq 03-25 12:30: 00 03-25 12:41 :00 No 20meq 20 mEq, Oral, ONCE, 1 dose, On Tue03/25/23 at 0730, Routine [facility] acetaminoph en (TYLENOL) 325 mg Cap 03-25 12:26: 56 Yes Take by mouth as needed. [facility] valsartan (DIOVAN) tablet 20 mg 03-25 01:00: 00 03-25 01:11 :00 No 20mg 20 mg, Oral, ONCE, 1 dose, On Tue03/24/23 at 2000, Routine Univers [facility] insulin lispro (human) (HumaLOG U-100) injection 5 Units 03-24 22:00: 00 Yes 5U 5 Units, Subcutaneo us, TID MEALS, First dose on Tue03/24/23 at 1700, Until Discontinu ed, Routine [facility] furosemide (LASIX) tablet 40 mg 03-24 22:00: 00 03-24 22:24 :00 No 40mg 40 mg, Oral, ONCE, 1 dose, On Tue03/24/23 at 1700, Routine [facility] heparin 1000 unit/mL injection Soln 5,000 Units 03-24 14:45: 00 03-24 16:10 :00 No 5000U 5,000 Units, IV Push, ONCE, 1 dose, On Tue03/24/23 at 0945, Routine [facility] heparin 25,000 Units/250 mL in NS 03-24 14:32: 28 03-27 19:11 :03 No 0U/h 0-3,050 Units/hr (0-30.5 mL/hr), IV Infusion, TITRATE, Parameters in Admin. Instr., Starting on Devika 03/24/23 at 0932
In itiate dosing:&nb sp; & [...] INITIAL INFUSION RATE.&nbsp ; _ &nb sp;[facility] [place] &nbs p; - aPTT < 35: [...] once therapeuti c levels are reached.<b r> Univers [facility] heparin (1,000 unit/mL, 10 mL vial) 03-24 14:32: 23 03-27 19:11 :02 No 3000U FOR REBOLUSING , Starting on Tue03/24/23 at 0932, Until 03/27/23 at 1411, Routine
Dosing based on aPTT testing parameters (refer to continuous heparin drip order)
Univers [facility] insulin glargine (LANTUS U-100) injection 26 Units 03-24 14:00: 00 03-24 19:22 :18 No 26U 26 Units, Subcutaneo us, DAILY, First dose (after last modificati on) on Tue03/24/23 at 0900, Until Discontinu ed, [facility] (CEPACOL SORE THROAT (JYOTSNA-MEN)) lozenge 1 Lozenge 03-24 02:04: 13 Yes 1{lozen ge} 1 Lozenge, Oral, Q4HPRN, Starting on Tue03/23/23 at 2104, Until Discontinu ed, Routine, Sore throat [facility] valsartan (DIOVAN) tablet 20 mg 03-24 01:00: 00 03-24 19:26 :33 No 20mg 20 mg, Oral, BID, First dose on Tue03/23/23 at 2000, Until Discontinu ed, Routine [facility] Sliding Scale Insulin - Lispro (HumaLOG) 03-23 22:00: 00 Yes Subcutaneo us, TID MEALS+HS, First dose (after last modificati on) on Tue03/23/23 at 1700, Until Discontinu ed, [facility] carved[facility] (COREG) tablet 12.5 mg 03-23 22:00: 00 03-26 19:08 :16 No 12.5mg 12.5 mg, Oral, BID MEALS, First dose on Tue03/23/23 at 1700, Until Discontinu ed, Routine [facility] phenoL (SORE THROAT (PHENOL)) 1.4 % spray bottle 1 [place] 03-22 20:03: 05 Yes 1{spray } 1 [place], Oral, PRN, Starting on Tue03/22/23 at 1503, Until Discontinu ed, Routine, Sore throat [facility] methocarbam oL (ROBAXIN) tablet 500 mg 03-22 19:36: 07 03-28 21:22 :55 No 500mg 500 mg, Oral, QIDPRN, Starting on Tue03/22/23 at 1436, Until Tue03/28/23 at 1622, Routine, Muscle Spasms [facility] acetaminoph en (TYLENOL) tablet 650 mg 03-22 19:35: 12 Yes 650mg 650 mg, Oral, Q6HPRN, Starting on Tue03/22/23 at 1435, Until Discontinu ed, Routine, Pain (scale 1-3) [facility] Sliding Scale Insulin - Lispro (HumaLOG) 03-22 17:00: 00 Yes Subcutaneo us, TID MEALS+HS, First dose (after last modificati on) on Tue03/22/23 at 1200, Until Discontinu ed, Routine [facility] acetaminoph en (TYLENOL) 325 mg Cap 03-22 14:07: 39 Yes Take by mouth as needed. [facility] insulin glargine (LANTUS U-100) injection 22 Units 03-22 14:00: 00 Yes 22U 22 Units, Subcutaneo us, DAILY, First dose (after last modificati on) on Tue03/22/23 at 0900, Until Discontinu ed, Routine [facility] spironolact one (ALDACTONE) tablet 25 mg 03-22 14:00: 00 Yes 25mg 25 mg, Oral, DAILY, First dose on Tue03/22/23 at 0900, Until Discontinu ed, Routine [facility] polyethylen e glycol 3350 powder 17 g 03-22 14:00: 00 03-28 21:22 :55 No 17g 17 g, Oral, DAILY, First dose on Tue03/22/23 at 0900, Until Discontinu ed, Routine [facility] pantoprazol e (PROTONIX) EC tablet 40 mg 03-22 14:00: 00 03-28 21:22 :55 No 40mg 40 mg, Oral, DAILY, First dose on Tue03/22/23 at 0900, Until Discontinu ed, Routine [facility] escitalopra m oxalate (LEXAPRO) tablet 10 mg 03-22 14:00: 00 03-28 21:22 :55 No 10mg 10 mg, Oral, DAILY, First dose on Tue03/22/23 at 0900, Until Discontinu ed, Routine [facility] aspirin EC tablet 81 mg 03-22 14:00: 00 03-28 21:22 :55 No 81mg 81 mg, Oral, DAILY, First dose on Tue03/22/23 at 0900, Until Discontinu ed, Routine [facility] furosemide (LASIX) injection 20 mg 03-22 14:00: 00 03-22 15:11 :00 No 20mg 20 mg, Slow IV Push, ONCE, 1 dose, On Tue03/22/23 at 0900, Routine [facility] metoprolol tartrate (LOPRESSOR) tablet 25 mg 03-22 13:15: 00 Yes 25mg 25 mg, Oral, BID, First dose (after last modificati on) on Tue03/22/23 at 0815, Until Discontinu ed, Routine [facility] calcium gluconate 2 g in NaCl 100 mL (ISO-OSM) RTU IV infusion 2 g 03-22 11:30: 00 03-22 11:19 :00 No 2g 2 g, IV Infusion, at 200 mL/hr Administer over 30 Minutes, ONCE, 1 dose, On Tue03/22/23 at 0630, Routine [facility] levothyroxi ne (SYNTHROID) tablet 25 mcg 03-22 11:00: 00 03-28 21:22 :55 No 25ug 25 mcg, Oral, QAM-0600, First dose on Tue03/22/23 at 0600, Until Discontinu ed, [facility] (ROBINUL) injection 0.4 mg 03-22 05:42: 13 Yes .4mg 0.4 mg, Slow IV Push, PRN - SEE INSTRUCTIO NS, Starting on Tue03/22/23 at 0042, Until Discontinu ed, Routine, HR < 45 [facility] glycopyrrol ate (ROBINUL) injection 0.2 mg 03-22 04:00: 23 03-22 05:30 :39 No .2mg 0.2 mg, Slow IV Push, PRN - SEE INSTRUCTIO NS, Starting on Tue03/21/23 at 2300, Until Tue03/22/23 at 0030, Routine, HR < 50 [facility] pravastatin (PRAVACHOL) tablet 80 mg 03-22 02:00: 00 03-28 21:22 :55 No 80mg 80 mg, Oral, QHS, First dose on Tue03/21/23 at 2100, Until Discontinu ed, Routine [facility] pramipexole (MIRAPEX) tablet 0.75 mg 03-22 02:00: 00 03-28 21:22 :55 No .75mg 0.75 mg, Oral, QHS, First dose on Tue03/21/23 at 2100, Until Discontinu ed, Routine [facility] traZODone (DESYREL) tablet 50 mg 03-22 02:00: 00 03-28 21:22 :55 No 50mg 50 mg, Oral, QHS, First dose on Tue03/21/23 at 2100, Until Discontinu ed, Routine [facility] pregabalin (LYRICA) capsule 50 mg 03-22 02:00: 00 03-28 21:22 :55 No 50mg 50 mg, Oral, QHS, First dose on Tue03/21/23 at 2100, Until Discontinu ed, Routine [facility] apixaban (ELIQUIS) tablet 5 mg 03-22 01:00: 00 Yes [id number] 5mg 5 mg, Oral, BID, First dose on Tue03/21/23 at 2000, Until Discontinu ed, Routine
Indicatio ns: DVT/PE [facility] ferrous sulfate tablet 325 mg 03-22 01:00: 00 03-28 21:22 :55 No 325mg 325 mg, Oral, QMON/TUE/ RI AT 1999, First dose on Tue03/21/23 at 1999, Until Discontinu ed, Routine [facility] Sliding Scale Insulin - Lispro (HumaLOG) 03-22 01:00: 00 03-22 12:12 :03 No Subcutaneo us, Q2H, First dose (after last modificati on) on Tue03/21/23 at 1999, Until Discontinu ed, Routine [facility] acetaminoph en ADULT (OFIRMEV) injection 1,000 mg 03-22 01:00: 00 03-22 15:32 :00 No 1000mg 1,000 mg, IV Infusion, at 400 mL/hr Administer over 15 Minutes, Q12H, 2 doses, First dose on Tue03/21/23 at 1999, Last dose on Tue03/22/23 at 0800, Routine
Indicatio n: Perioperat preston Patient [facility] metoprolol tartrate (LOPRESSOR) tablet 12.5 mg 03-22 01:00: 00 03-22 13:13 :52 No 12.5mg 12.5 mg, Oral, BID, First dose on Tue03/21/23 at 1999, Until Discontinu ed, Routine [facility] FENTanyl PF (SUBLIMAZE (PF)) injection 25 mcg 03-21 23:01: 04 03-22 19:36 :17 No 25ug 25 mcg, Slow IV Push, Q30MIN PRN, Starting on Tue03/21/23 at 1801, Until Tue03/22/23 at 1436, Routine, Pain (scale 7-10) [facility] labetaloL (NORMODYNE) injection 10 mg 03-21 22:44: 16 03-28 21:22 :55 No 10mg 10 mg, Slow IV Push, Q15MIN PRN, 4 doses, Starting on Tue03/21/23 at 1744, Until Tue03/28/23 at 1622, Routine, SBP > 160 [facility] furosemide (LASIX) tablet 40 mg 03-21 [...] 10% (D10W) bolus infusion 250 mL 03-21 20:48: 40 03-28 21:22 :55 No 250mL [...] 03-02 00:00: 00 06-23 00:00 :00 No [id number] TAKE ONE (1) CAPSULE(S) BY MOUTH AT BEDTIME. [facility] TRAMADOL 50 mg tablet 03-02 00:00: 00 03-08 00:00 :00 No [id number] TAKE ONE (1) TABLET(S) BY MOUTH EVERY [...] 325mg 325 mg, Oral, QMON/TUE/ RI AT 1999, First dose on Tue02/21/23 at 2000, Until [...] 02-21 16:15: 00 02-21 16:15 :00 No [id number] 5mL 5 mL, Intravenou s, ONCE, 1 dose, On Tue02/21/23 at 1115, Routine
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 Restricted medication : AJMSHID EARLY [facility] pantoprazol e [...] Tue02/21/23 at 0900, Until Discontinu ed, Routine [facility] spironolact one (ALDACTONE) tablet 25 mg 02-21 13:00: 00 Yes 25mg 25 mg, Oral, BID, First dose on Tue02/21/23 at 0800, Until Discontinu ed, Routine [facility] pregabalin (LYRICA) capsule 50 mg 02-21 13:00: 00 Yes 50mg 50 mg, Oral, BID, First dose on Tue02/21/23 at 0800, Until Discontinu ed, Routine [facility] mupirocin (BACTROBAN OINT) 2 % skin ointment 02-21 13:00: 00 Yes [facility] metoprolol tartrate (LOPRESSOR) tablet 12.5 mg 02-21 13:00: 00 Yes 12.5mg 12.5 mg, Oral, BID, First dose on Tue02/21/23 at 0800, Until Discontinu ed, Routine [facility] baclofen (LIORESAL) tablet 10 mg 02-21 13:00: 00 Yes 10mg 10 mg, Oral, TID, First dose on Tue02/21/23 at 0800, Until Discontinu ed, Routine [facility] apixaban (ELIQUIS) tablet 5 mg 02-21 13:00: 00 Yes [id number] 5mg 5 mg, Oral, BID, First dose on Tue02/21/23 at 0800, Until Discontinu ed, Routine
Indicatio ns: Non-Valvul ar Atrial Fibrillati on [facility] levothyroxi ne (SYNTHROID) tablet 25 mcg 02-21 11:00: 00 Yes 25ug 25 mcg, Oral, QAM-0600, First dose on Tue02/21/23 at 0600, Until Discontinu ed, [facility] furosem[facility] (LASIX) tablet 40 mg 02-21 11:00: 00 Yes 40mg 40 mg, Oral, BID AT 0600 - 1800, First dose on Tue02/21/23 at 0600, Until Discontinu ed, Routine [facility] benzonatate (TESSALON PERLES) capsule 100 mg 02-21 11:00: 00 Yes 100mg 100 mg, Oral, Q8H, First dose on Tue02/21/23 at 0600, Until Discontinu ed, Routine [facility] FENTanyl PF (SUBLIMAZE (PF)) injection 25 mcg 02-21 06:55: 31 Yes 25ug 25 mcg, Slow IV Push, Q6HPRN, Starting on Tue02/21/23 at 0155, Until Discontinu ed, Routine, Pain (scale 4-6), Pain (scale 7-10) [facility] nystatin (NYSTOP) powder 02-21 06:10: 18 Yes Topical, TIDPRN, Starting on Tue02/21/23 at 0110, Until Discontinu ed, Routine, fungal rash [facility] NaCl 0.9% (NS) IV infusion 1,000 mL 02-21 04:30: 00 Yes 1000mL at 50 mL/hr, IV Infusion, CONTINUOUS , Starting on Tue02/20/23 at 2330, Until Discontinu ed, Routine [facility] ondansetron (ZOFRAN (PF)) injection 4 mg 02-21 04:17: 30 Yes 4mg 4 mg, Slow IV Push, Q6HPRN, Starting on Tue02/20/23 at 2317, Until Discontinu ed, Routine, Nausea and Vomiting (N/V) [facility] acetaminoph en (TYLENOL) tablet 650 mg 02-21 04:17: 11 Yes 650mg 650 mg, Oral, Q6HPRN, Starting on Tue02/20/23 at 2317, Until Discontinu ed, Routine, Pain (scale 1-3) [facility] FUROSEMIDE 40 mg tablet 02-03 00:00: 00 06-24 00:00 :00 No [id number] TAKE ONE (1) TABLET BY MOUTH EVERY MORNING AND EVENING. [facility] BACLOFEN 10 mg tablet 803 00:00: 00 04-19 00:00 :00 No [id number] TAKE ONE (1) TABLET(S) BY MOUTH THREE TIMES A DAY NEEDED. MAY MAKE YOU SLEEPY. [facility] TRAMADOL 50 mg tablet 01-28 00:00: 00 03-02 00:00 :00 No [id number] TAKE ONE (1) TABLET(S) BY MOUTH EVERY SIX HOURS NEEDED FOR PAIN. [facility] azelastine 137 mcg (0.1 %) nasal spray 01-18 00:00: 00 Yes [id number] 1{spray } Use 1 [place] in each nostril in the morning and 1 [place] in the evening. Use in each nostril as directed [facility] nystatin (NYSTOP) 100,000 unit/gram powder 01-18 00:00: 00 04-19 00:00 :00 No [id number] Apply to area(s) 3 (three) times daily as needed for Rash. [facility] FUROSEMIDE 40 mg tablet 01-05 00:00: 00 02-03 00:00 :00 No [id number] TAKE ONE (1) TABLET BY MOUTH EVERY MORNING AND EVENING. [facility] apixaban 5 mg tablet 12-24 00:00: 00 05-09 00:00 :00 No [id number] 5mg Take 1 tablet by mouth in the morning and 1 tablet in the evening. Indication s: history of venous thromboemb olism [facility] traMADoL 50 mg tablet 12-23 00:00: 00 01-28 00:00 :00 No [id number] TAKE ONE (1) TABLET(S) BY MOUTH EVERY SIX HOURS NEEDED FOR PAIN. [facility] tramadol HCl (TRAMADOL ORAL) 12-21 10:44: 23 Yes Take by mouth. [facility] cefTRIAXone (ROCEPHIN) injection 1,000 mg 12-09 16:00: 00 12-09 15:17 :00 No [id number] 1000mg [facility] pramipexole 0.75 mg tablet 12-09 00:00: 00 Yes [id number] .75mg Take 1 tablet by mouth at bedtime. [facility] pramipexole 0.75 mg tablet 12-09 00:00: 00 12-21 00:00 :00 No [id number] .75mg Take 1 tablet by mouth at bedtime. [facility] cefdinir 300 mg capsule 12-09 00:00: 00 01-18 00:00 :00 No [id number] 300mg Take 1 capsule by mouth every 12 (twelve) hours. [facility] semaglutide (OZEMPIC) 2 mg/dose (8 mg/3 mL) PnIj 30 00:00: 00 02-21 00:00 :00 No [id number] INJECT TWO (2) MG UNDER THE SKIN ONCE WEEKLY. [facility] SPIRONOLACT ONE 25 mg tablet 10-28 00:00: 00 04-19 00:00 :00 No [id number] TAKE ONE (1) TABLET(S) BY MOUTH EVERY DAY. [facility] pramipexole 0.5 mg tablet 10-28 00:00: 00 12-09 00:00 :00 No [id number] .5mg Take 1 tablet by mouth at bedtime. May take a second tablet if symptoms have not improved. [facility] traMADoL 50 mg tablet 27 00:00: 00 11-05 04:59 :00 No [id number] 50mg Take 1 tablet by mouth every 6 (six) hours as needed for Pain (scale 4-6) for up to 7 days. Indication s: chronic pain [facility] BACLOFEN 10 mg tablet 4-13 00:00: 00 02-03 00:00 :00 No [id number] TAKE ONE (1) TABLET(S) BY MOUTH THREE TIMES A DAY NEEDED. MAY MAKE YOU SLEEPY. [facility] aspirin (ASPIRIN LOW DOSE) 81 mg EC tablet 09-28 10:56: 40 Yes 81mg Take 1 tablet by mouth in the morning. [facility] pantoprazol e 40 mg EC tablet 09-28 00:00: 00 04-19 00:00 :00 No [id number] 40mg Take 1 tablet by mouth in the morning. [facility] Non-Adheren t Bandage (CURAD NON-STICK PAD) 3 X 4 " Bndg 09-28 00:00: 00 04-19 00:00 :00 No [id number] Use as directed [facility] levothyroxi ne 25 mcg tablet 09-28 00:00: 00 04-19 00:00 :00 No [id number] 25ug Take 1 tablet by mouth every morning. [facility] honey (MEDIHONEY, HONEY,) 80 % 09-28 00:00: 00 12-09 00:00 :00 No [id number] 5mg Apply 5 mg to area(s) in the morning. [facility] aspirin (ASPIRIN LOW DOSE) 81 mg EC tablet 09-07 14:41: 12 Yes 81mg Take 1 tablet by mouth in the morning. [facility] FUROSEMIDE 40 mg tablet 09-07 00:00: 00 01-05 00:00 :00 No [id number] TAKE ONE (1) TABLET BY MOUTH EVERY MORNING AND EVENING. [facility] pravastatin 80 mg tablet 09-06 00:00: 00 04-19 00:00 :00 No [id number] 80mg Take 1 tablet by mouth at bedtime. [facility] spironolact one 25 mg tablet 09-04 00:00: 00 10-28 00:00 :00 No 25mg Take 1 tablet by mouth in the morning. [facility] BENZONATATE 100 mg capsule 09-03 00:00: 00 2024- 05-10 00:00 :00 No [id number] TAKE ONE (1) OR TWO (2) CAPSULE(S) [...] 08-31 00:00: 00 08-22 00:00 :00 No [id number] 10mg Take 1 tablet by mouth in the morning. [facility] insulin degludec 100 unit/mL Soln 08-31 00:00: 00 05-16 00:00 :00 No [id number] 32U inject 32 Units under the skin in the morning. Morning [facility] pregabalin 50 mg capsule 08-31 00:00: 00 03-02 00:00 :00 No [id number] 50mg Take 1 capsule by mouth in the morning and 1 capsule in the evening. [facility] TRESIBA FLEXTOUCH U-100 100 unit/mL (3 mL) InPn 08-24 00:00: 00 02-21 00:00 :00 No INJECT 30 UNIT(S) UNDER THE SKIN EVERY MORNING. [facility] azelastine 137 mcg (0.1 %) nasal spray 08-13 00:00: 00 01-18 00:00 :00 No [id number] 1{spray } Use 1 [place] in each nostril in the morning and 1 [place] in the evening. Use in each nostril as directed [facility] BACLOFEN 10 mg tablet 08-12 00:00: 00 10-14 00:00 :00 No [id number] TAKE ONE (1) TABLET(S) BY MOUTH [facility] tablet 07-30 00:00: 00 07-19 00:00 :00 No [id number] 50mg Take 1 tablet by mouth at bedtime. [facility] metoprolol tartrate 25 mg tablet -17 00:00: 00 12-08 00:00 :00 No [id number] 12.5mg Take 0.5 tablets by mouth in the morning and 0.5 tablets in the evening. [facility] fluticasone propionate 50 mcg/actuati on nasal spray 07-15 00:00: 00 Yes [id number] 2{spray } Use 2 Sprays in each nostril once daily as needed. [facility] benzonatate 100 mg capsule 07-15 00:00: 00 09-03 00:00 :00 No [id number] 100mg Take 1 capsule by mouth every 8 (eight) hours as needed for Cough. May take 1-2 capsules [facility] traZODone 50 mg tablet 07-15 00:00: 00 07-30 00:00 :00 No [id number] 50mg Take 1 tablet by mouth at bedtime. [facility] melatonin (MELATIN) tablet 3 mg 07-06 03:00: 00 Yes 3mg 3 mg, Oral, QHS, First dose on Tue07/05/22 at 2100, Until Discontinu ed, Routine [facility] traZODone (DESYREL) tablet 100 mg 07-06 03:00: 00 Yes 100mg 100 mg, Oral, QHS, First dose (after last modificati on) on Tue07/05/22 at 2100, Until Discontinu ed, [facility] furosemide (LASIX) tablet 40 mg 07-05 23:00: 00 Yes 40mg 40 mg, Oral, QAM+PM, First dose on Tue07/05/22 at 1700, Until Discontinu ed, Routine [facility] aspirin (ASPIRIN LOW DOSE) 81 mg EC tablet 07-05 17:22: 16 Yes 81mg Take 81 mg by mouth daily. [facility] latanoprost (XALATAN) 0.005 % ophthalmic drops 07-05 17:22: 16 Yes 1[drp] Place 1 Drop in both eyes every evening. [facility] mupirocin 2 % ointment 07-05 00:00: 00 04-19 00:00 :00 No [id number] Apply to area(s) 3 (three) times daily. As needed [facility] melatonin 3 mg tablet 07-05 00:00: 00 04-12 00:00 :00 No [id number] 3mg Take 1 tablet by mouth at bedtime. [facility] docusate 100 mg capsule 07-05 00:00: 00 02-21 00:00 :00 No [id number] 100mg Take 1 capsule by mouth in the morning and 1 capsule in the evening. [facility] metoprolol tartrate 75 mg Tab 07-05 00:00: 00 07-15 00:00 :00 No [id number] 75mg Take 75 mg by mouth 2 (two) times daily for 30 days. [facility] benzonatate 100 mg capsule 07-05 00:00: 00 07-15 00:00 :00 No [id number] 100mg Take 1 capsule by mouth every 8 (eight) hours as needed for Cough. [facility] traZODone 50 mg tablet 07-05 00:00: 00 07-15 00:00 :00 No [id number] 50mg Take 1 tablet by mouth at bedtime for 30 days. [facility] furosemide (LASIX) injection 40 mg 07-04 14:00: 00 07-05 14:47 :21 No 40mg 40 mg, Slow IV Push, Q12H, First dose (after last modificati on) on Tue07/04/22 at 0800, Until Discontinu ed, Routine [facility] traZODone (DESYREL) tablet 50 mg 07-04 03:00: 00 07-05 17:04 :22 No 50mg 50 mg, Oral, QHS, First dose on 07/03/22 at 2100, Until Discontinu ed, Routine [facility] KCL (KLOR-CON M20) tablet 40 mEq 2021-07 21:45: 00 Yes 40meq 40 mEq, Oral, BID, First dose (after last reorder) on 07/03/22 at 1545, Until Discontinu ed, Routine [facility] KCL (KLOR-CON M20) tablet 40 mEq 2021-07 16:15: 00 07-02 17:19 :00 No 40meq 40 mEq, Oral, ONCE, 1 dose, On Tue07/02/22 at 1015, Routine [facility] ceFEPIme (MAXIPIME) 1,000 mg in NaCl 0.9% (NS) 50 mL MINI-BAG 2021-07 19:00: 00 07-05 10:12 :00 No 1000mg 1,000 mg, IV Piggyback, Q12H ABX, 8 doses, First dose (after last modificati on) on Tue07/01/22 at 1300, Last dose on Tue07/05/22 at 0100, Administer over 4 Hours, 50 mL
Reas on for Anti-Infec tive: Empiric Therapy for Suspected Infection< br>Empiric Therapy Site: Respirator y
Durat ion of therapy: 5 days [facility] metoprolol tartrate (LOPRESSOR) tablet 75 mg 2021-07 14:00: 00 Yes 75mg 75 mg, Oral, BID, First dose (after last modificati on) on Devika 07/01/22 at 0800, Until Discontinu ed, Routine [facility] ceFEPIme (MAXIPIME) 1,000 mg in NaCl 0.9% [...] therapy: 5 days [facility] digoxin (LANOXIN) injection 250 mcg 2021-07 21:00: 00 06-30 21:27 :00 No 250ug 250 mcg, Intravenou s, ONCE, 1 dose, On Tue06/30/22 at 1500, Routine [facility] furosemide (LASIX) injection 40 mg 2021-07 20:00: 00 07-03 21:32 :30 No 40mg 40 mg, Slow IV Push, Q8H, First dose (after last modificati on) on Tue06/30/22 at 1400, Until Discontinu ed, Routine [facility] vancomycin 1,250 mg in NaCl 0.9% (NS) [...] ion of therapy: 72 hours [facility] lactobacill us acidophilus tablet 1 mg 2021-07 17:15: 00 Yes 1mg 1 mg, Oral, BID, First dose on Tue06/30/22 at 1115, Until Discontinu ed, Routine [facility] bisacodyL (DULCOLAX) suppository 10 mg 2021-07 15:15: 00 06-30 15:26 :00 No 10mg 10 mg, Rectal, ONCE, 1 dose, On Tue06/30/22 at 0915, Routine [facility] polyethylen e glycol 3350 powder 17 g 2021-07 15:00: 00 07-02 14:10 :00 No 17g 17 g, Oral, DAILY, 3 doses, First dose on Tue06/30/22 at 0900, Last dose on Tue07/02/22 at 0900, Routine [facility] KCL (KLOR-CON M20) tablet 20 mEq 2021-07 14:45: 00 06-30 15:26 :00 No 20meq 20 mEq, Oral, ONCE, 1 dose, On Tue06/30/22 at 0845, Routine [facility] sennosides (SENOKOT) tablet 8.6 mg 2021-07 14:30: 00 Yes 8.6mg 8.6 mg, Oral, BID, First dose on Tue06/30/22 at 0830, Until Discontinu ed, Routine [facility] docusate (COLACE) capsule 100 mg 2021-07 14:30: 00 Yes 100mg 100 mg, Oral, BID, First dose on Tue06/30/22 at 0830, Until Discontinu ed, Routine [facility] digoxin (LANOXIN) injection 500 mcg 2021-07 14:15: 00 06-30 13:27 :00 No 500ug 500 mcg, Intravenou s, ONCE, 1 dose, On Tue06/30/22 at 0815, Routine [facility] metoprolol tartrate (LOPRESSOR) tablet 50 mg 2021-07 14:00: 00 07-01 13:55 :27 No 50mg 50 mg, Oral, BID, First dose (after last modificati on) on Tue06/30/22 at 0800, Until Discontinu ed, Routine [facility] furosemide (LASIX) injection 40 mg 2021-07 14:00: 00 06-30 14:36 :33 No 40mg 40 mg, Slow IV Push, Q12H, First dose (after last modificati on) on Tue06/30/22 at 0800, Until Discontinu ed, Routine [facility] metoprolol (LOPRESSOR) injection 5 mg 2021-07 12:33: 00 06-30 12:34 :00 No 5mg 5 mg, Intravenou s, ONCE NOW, 1 dose, On Tue06/30/22 at 0645, GI [facility] ipratropium -albuteroL (DUONEB) 0.5 mg-3 mg(2.5 mg base)/3 mL nebulizer solution 3 mL 2021-07 12:14: 50 Yes 3mL 3 mL, Inhalation , Q6HPRN, Starting on Tue06/30/22 at 0614, Until Discontinu ed, Routine, Wheezing [facility] metoprolol tartrate (LOPRESSOR) tablet 25 mg 2021-07 02:00: 00 06-30 12:36 :09 No 25mg 25 mg, Oral, BID, First dose (after last modificati on) on Tue06/29/22 at 2000, Until Discontinu ed, Routine [facility] guaiFENesin (FENESIN IR) tablet 400 mg 2021-07 00:15: 00 Yes 400mg 400 mg, Oral, Q6H, First dose on Tue06/29/22 at 1815, Until Discontinu ed, Routine [facility] benzocaine- menthoL (CEPACOL SORE THROAT (JYOSTNA-MEN)) lozenge 1 Lozenge 2021-07 00:15: 00 Yes 1{lozen ge} 1 Lozenge, Oral, Q6H, First dose on Tue06/29/22 at 1815, Until Discontinu ed, Routine [facility] levalbutero l (XOPENEX) nebulizer solution 0.63 mg 2021-07 00:00: 00 Yes .63mg 0.63 mg, Inhalation , QID, First dose on Tue06/29/22 at 1800, Until Discontinu ed, Routine [facility] furosemide (LASIX) injection 20 mg 2021-07 14:00: 00 06-30 13:15 :52 No 20mg 20 mg, Slow IV Push, Q12H, First dose on Tue06/29/22 at 0800, Until Discontinu ed, Routine [facility] metoclopram cory HCl (REGLAN) injection 10 mg 2021-07 06:26: 57 Yes 10mg 10 mg, Slow IV Push, TIDPRN, Starting on Tue06/29/22 at 0026, Until Discontinu ed, Routine, Nausea and Vomiting (N/V) [facility] NaCl 0.9% (NS) IV infusion 1,000 mL 2021-07 00:00: 00 06-29 13:03 :24 No 1000mL at 80 mL/hr, IV Infusion, CONTINUOUS , Starting on Tue06/27/22 at 1800, Until Tue06/29/22 at 0703, Routine [facility] ondansetron (ZOFRAN (PF)) injection 4 mg 2021-07 22:23: 48 Yes 4mg 4 mg, Slow IV Push, Q6HPRN, Starting on Tue06/27/22 at 1623, Until Discontinu ed, GI, Nausea and Vomiting (N/V) [facility] cefTRIAXone (ROCEPHIN) 1,000 mg in NaCl 0.9% (NS) 50 mL MINI-BAG 2021-07 18:00: 00 06-30 17:10 :54 No 1000mg 1,000 mg, IV Piggyback, Q24H ABX, 5 doses, First dose (after last reorder) on 06/27/22 at 1200, Last dose on Devika 07/01/22 at 1200, Administer over 30 Minutes, 50 mL
Reas on for Anti-Infec tive: Documented Infection< br>Documen steph Infection Site: Urine
D uration of Therapy: Other (see Comments) [facility] pantoprazol e (PROTONIX) EC tablet 40 mg 2021-07 15:00: 00 Yes 40mg 40 mg, Oral, DAILY, First dose on 06/27/22 at 0900, Until Discontinu ed, Routine [facility] escitalopra m oxalate (LEXAPRO) tablet 10 mg 2021-07 15:00: 00 Yes 10mg 10 mg, Oral, DAILY, First dose on 06/27/22 at 0900, Until Discontinu ed, Routine [facility] aspirin EC tablet 81 mg 2021-07 15:00: 00 Yes 81mg 81 mg, Oral, DAILY, First dose on 06/27/22 at 0900, Until Discontinu ed, Routine [facility] levothyroxi ne (SYNTHROID) tablet 25 mcg 2021-07 12:00: 00 Yes 25ug 25 mcg, Oral, QAM-0600, First dose on 06/27/22 at 0600, Until Discontinu ed, Routine [facility] benzonatate (TESSALON PERLES) capsule 100 mg 2021-07 11:55: 14 Yes 100mg 100 mg, Oral, Q8HPRN, Starting on 06/27/22 at 0555, Until Discontinu ed, Routine, Cough [facility] baclofen (LIORESAL) tablet 10 mg 2021-07 05:31: 57 Yes 10mg 10 mg, Oral, TIDPRN, Starting on 06/26/22 at 2331, Until Discontinu ed, Routine, for restless legs, may make you sleepy [facility] traMADoL (ULTRAM) tablet 50 mg 2021-07 05:31: 44 Yes 50mg 50 mg, Oral, Q8HPRN, Starting on 06/26/22 at 2331, Until Discontinu ed, Routine, Pain (scale 4-6) [facility] pregabalin (LYRICA) capsule 50 mg 2021-07 03:00: 00 Yes 50mg 50 mg, Oral, QHS, First dose on 06/26/22 at 2100, Until Discontinu ed, Routine [facility] pramipexole (MIRAPEX) tablet 0.5 mg 2021-07 03:00: [...] 06/26/22 at 1800, Until Discontinu ed, Routine [facility] (ACCU-CHEK PHILLIP) strip 2021-07 00:00: 00 Yes [id number] Take sugars 3 times a day, DX E11.9 [facility] blood sugar diagnostic (ACCU-CHEK PHILLIP) strip 2021-07 00:00: 00 04-19 00:00 :00 No [id number] Take sugars 3 times a day, DX E11.9 [facility] escitalopra m oxalate 10 mg tablet 2021-07 00:00: 00 08-31 00:00 :00 No [id number] 10mg Take 1 tablet by mouth in the morning. [facility] pregabalin 50 mg capsule 2021-07 00:00: 00 08-31 00:00 :00 No [id number] 50mg Take 1 capsule by mouth at bedtime. [facility] metoprolol tartrate 25 mg tablet 2021-07 00:00: 00 07-05 00:00 :00 No [id number] 12.5mg Take 0.5 tablets by mouth in the morning and 0.5 tablets in the evening. [facility] baclofen 10 mg tablet 2021-07 00:00: 00 08-12 00:00 :00 No [id number] 10mg Take 1 tablet by mouth 3 (three) times daily as needed for Pain (scale 4-6) (for restless legs, may make you sleepy). [facility] KLOR-CON 10 10 mEq CR tablet 2021-07 00:00: 00 10-28 00:00 :00 No [id number] TAKE 1 TABLET BY MOUTH ONCE DAILY NEEDED FOR OTHER (TAKE WHEN INCREASING LASIX DOSE). [facility] furosemide 40 mg tablet 2021-07 0-20 00:00: 00 09-07 00:00 :00 No [id number] 40mg Take 1 tablet by mouth every morning and evening. [facility] flash glucose scanning reader (FREESTYLE KANDI 14 DAY READER) [facility] 2021-07 00:00: 00 06-26 00:00 :00 No [id number] 1{each} inject 1 Each under the skin every 14 (fourteen) days. [facility] flash glucose sensor (FREESTYLE KANDI 2 SENSOR) Kit 2021-07 00:00: 00 06-26 00:00 :00 No [id number] 1{each} inject 1 Each under the skin every 14 (fourteen) days. Change 1 sensor every 14 days [facility] lisinopriL 5 mg tablet 2021-07 00:00: 00 05-10 00:00 :00 No [id number] 5mg Take 1 tablet by mouth in the morning. [facility] FREESTYLE KANDI DAY READER [facility] 2021-07 00:00: 00 04-22 00:00 :00 No [id number] USE WITH SENSOR TO CHECK BLOOD SUGAR FOUR TIMES DAILY DIRECTED [facility] semaglutide (OZEMPIC) 2 mg/dose (8 mg/3 mL) PnIj 03-29 00:00: 00 11-30 00:00 :00 No [id number] 2mg inject 2 mg under the skin weekly. [facility] baclofen 10 mg tablet 03-25 00:00: 00 06-01 00:00 :00 No [id number] 9104 10mg Take 1 tablet by mouth 3 (three) times daily as needed for Pain (scale 4-6) (for restless legs, may make you sleepy). [facility] flash glucose scanning reader (FREESTYLE KANDI DAY READER) [facility] 03-25 00:00: 00 04-13 00:00 :00 No 1{appli cator} 1 Applicator 4 (four) times daily. Check glucose qid as directed [facility] FREESTYLE KANDI 2 SENSOR Kit 03-24 00:00: 00 04-22 00:00 :00 No [id number] CHANGE 1 SENSOR EVERY 14 DAYS [facility] BACLOFEN 10 mg tablet 03-23 00:00: 00 03-25 00:00 :00 No [id number] 9104 10mg TAKE 1 TABLET BY MOUTH [facility] (FREESTYLE KANDI 2 SENSOR) Kit 03-16 00:00: 00 Yes [id number] 1{each} 1 Each every 14 (fourteen) days. [facility] flash glucose sensor (FREESTYLE KANDI 2 SENSOR) Kit 03-15 00:00: 00 03-16 00:00 :00 No [id number] 1{each} 1 Each every 7 (seven) days. Apply every 10 days [facility] insulin aspart U-100 100 unit/mL (3 mL) injection 02-25 00:00: 00 07-05 00:00 :00 No [id number] INJECT 12 U SUBCUTANEO USLY WITH BREAKFAST, 14 U WITH LUNCH/DINN ER DAILY [facility] potassium chloride 10 mEq CR tablet 02-25 00:00: 00 05-31 00:00 :00 No [id number] 10meq Take 1 tablet by mouth once daily as needed for Other (Take when increasing Lasix dose). [facility] flash glucose scanning reader (FREESTYLE KANDI 14 DAY READER) Mis 02-25 00:00: 00 03-25 00:00 :00 No [id number] 1{appli cator} 1 Applicator 4 (four) times daily. Check glucose qid as directed [facility] baclofen 10 mg tablet 02-25 00:00: 00 03-23 00:00 :00 No [id number] 9104 10mg Take 1 tablet by mouth [...] [facility] (FREESTYLE KANDI 14 DAY SENSOR) Kit 02-25 00:00: 00 03-15 00:00 :00 No [id number] 1{appli cator} 1 Applicator 4 (four) times [...] 02-20 00:00: 00 08-31 00:00 :00 No [id number] 30U inject 30 Units under the skin daily. Morning [facility] metoprolol tartrate 25 mg tablet 02-20 00:00: 00 06-08 00:00 :00 No [id number] 12.5mg Take 0.5 tablets by mouth in the morning and 0.5 tablets in the evening. [facility] flash glucose scanning reader (FREESTYLE KANDI 14 DAY READER) Misc 02-20 00:00: 00 02-25 00:00 :00 No [id number] 1{appli cator} 1 Applicator 4 (four) times daily. Check glucose qid as directed [facility] flash glucose sensor (FREESTYLE KANDI 14 DAY SENSOR) Kit 02-20 00:00: 00 02-25 00:00 :00 No [id number] 1{appli cator} 1 Applicator 4 (four) times daily. Check glucose qid as directed [facility] ferrous sulfate 325 mg (65 mg iron) tablet 02-01 00:00: 00 05-10 00:00 :00 No [id number] 325mg Take 1 tablet by mouth every Tuesday, and Tuesday in the evening. [facility] escitalopra m oxalate 10 mg tablet 02-01 00:00: 00 06-08 00:00 :00 No [id number] 10mg Take 1 tablet by mouth in the morning. [facility] pregabalin 50 mg capsule 02-01 00:00: 00 06-08 00:00 :00 No [id number] 50mg Take 1 capsule by mouth at bedtime. [facility] rivaroxaban 20 mg tablet 02-01 00:00: 00 02-25 00:00 :00 No [id number] 20mg Take 1 tablet by mouth in the morning. Indication s: blood clot formation in vein [facility] insulin aspart U-100 (NOVOLOG FLEXPEN U-100 INSULIN) 100 unit/mL (3 mL) injection 02-01 00:00: 00 02-25 00:00 :00 No [id number] INJECT 10 U SUBCUTANEO USLY WITH BREAKFAST, 12 U WITH LUNCH/DINN ER DAILY [facility] mupirocin 2 % ointment - 00:00: 00 07-05 00:00 :00 No [id number] Apply to area(s) 3 (three) times daily. [facility] pantoprazol e 40 mg EC tablet 10-25 00:00: 00 Yes [id number] 40mg Take 1 tablet by mouth in the morning. [facility] polyethylen e glycol 3350 (MIRALAX) 17 gram/dose powder 10-25 00:00: 00 Yes [id number] 17g Take 17 g by mouth in the morning. [facility] levothyroxi ne 25 mcg tablet 10-25 00:00: 00 11-10 00:00 :00 No [id number] 25ug Take 1 tablet by mouth every morning. [facility] pramipexole 0.5 mg tablet 10-24 00:00: 00 10-28 00:00 :00 No [id number] .5mg Take 1 tablet by mouth at bedtime. [facility] pravastatin 80 mg tablet 10-24 00:00: 00 09-06 00:00 :00 No [id number] 80mg Take 1 tablet by mouth at bedtime. [facility] furosemide 40 mg tablet 10-24 00:00: 00 04-22 00:00 :00 No [id number] 40mg Take 1 tablet by mouth every morning and evening. [facility] NYSTOP 100,000 unit/gram powder 2020-07 00:00: 00 01-18 00:00 :00 No [facility] Lancets (ACCU-CHEK MULTICLIX LANCET) [facility] 03-20 00:00: 00 Yes [id number] Use as directed [facility] Lancets (ACCU-CHEK MULTICLIX LANCET) [facility] 03-20 00:00: 00 04-19 00:00 :00 No [id number] Use as directed [facility] Insulin Syringe-Nee dle U-100 0.3 mL 30 gauge x 1/2" Syrg 03-20 00:00: 00 05-10 00:00 :00 No [id number] Use as directed [facility] Insulin Empire, Disposable, (BD INSULIN PEN NEEDLE UF) 29 gauge x 1/2" Nd2018-07 00:00: 00 Yes [id number] Use as directed, once a day, DX:E11.9 [facility] Insulin Empire, Disposable, (BD INSULIN PEN NEEDLE UF) 29 gauge x 1/2" Ok2018-07 00:00: 00 04-19 00:00 :00 No [id number] Use as directed, once a day, DX:E11.9 [facility] ACCU-CHETootie FISHER strip 11-10 00:00: 00 06-08 00:00 :00 No [id number] Take sugars 1-2 times a day, DX E11.9 [facility] Banophen 25 mg capsule Take 1 capsule every 6 hours by oral route. Banophen 25 mg capsule Take 1 capsule every 6 hours by oral route. No 1capsul e(s) Q6H Banophen 25 mg capsule Take 1 capsule every 6 hours by oral route. [facility] BD Ultra-Fine Original Pen Needle 29 gauge x 1/2" BD Ultra-Fine Original Pen Needle 29 gauge x 1/2" No BD Ultra-Fine Original Pen Needle 29 gauge x 1/2" [facility] levothyroxi ne 50 mcg tablet Take 1 tablet every day by oral route. levothyroxi ne 50 mcg tablet Take 1 tablet every day by oral route. No 1 Q1D levothyrox ine 50 mcg tablet Take 1 tablet every day by oral route. [facility] Novolog Flexpen U-100 Insulin aspart 100 unit/mL (3 mL) subcutaneou s sliding scale: based on blood sugar Novolog Flexpen U-100 Insulin aspart 100 unit/mL (3 mL) subcutaneou s sliding scale: based on blood sugar No Novolog Flexpen U-100 Insulin aspart 100 unit/mL (3 mL) subcutaneo us sliding scale: based on blood sugar [facility] Ozempic 1 mg/dose (2 mg/1.5 mL) subcutaneou s pen injector INJECT 1 MG EVERY WEEK BY SUBCUTANEOU S ROUTE. Ozempic 1 mg/dose (2 mg/1.5 mL) subcutaneou s pen injector INJECT 1 MG EVERY WEEK BY SUBCUTANEOU S ROUTE. No Ozempic 1 mg/dose (2 mg/1.5 mL) subcutaneo us pen injector INJECT 1 MG EVERY WEEK BY SUBCUTANEO US ROUTE. [facility] pregabalin 300 mg capsule TAKE 1 CAPSULE BY MOUTH TWICE A DAY pregabalin 300 mg capsule TAKE 1 CAPSULE BY MOUTH TWICE A DAY No pregabalin 300 mg capsule TAKE 1 CAPSULE BY MOUTH TWICE A DAY [facility] sulfamethox azole 800 mg-trimetho prim 160 mg tablet Take 1 tablet every 12 hours by oral route. sulfamethox azole 800 mg-trimetho prim 160 mg tablet Take 1 tablet every 12 hours by oral route. No sulfametho xazole 800 mg-trimeth oprim 160 mg tablet Take 1 tablet every 12 hours by oral route. [facility] Accu-Chek Phillip Plus test strips USE 1 STRIP 3 TIMES A DAY Accu-Chek Phillip Plus test strips USE 1 STRIP 3 TIMES A DAY No Accu-Chek Phillip Plus test strips USE 1 STRIP 3 TIMES A DAY [facility] Banophen 25 mg capsule Take 1 capsule every 6 hours by oral route. Banophen 25 mg capsule Take 1 capsule every 6 hours by oral route. No 1capsul e(s) Q6H Banophen 25 mg capsule Take 1 capsule every 6 hours by oral route. [facility] BD Ultra-Fine Original Pen Needle 29 gauge x 1/2" BD Ultra-Fine Original Pen Needle 29 gauge x 1/2" No BD Ultra-Fine Original Pen Needle 29 gauge x 1/2" [facility] Eliquis 5 mg tablet TAKE 1 TABLET BY MOUTH 2 (TWO) TIMES DAILY. INDICATIONS DEEP VEIN THROMBOSIS PREVENTION Eliquis 5 mg tablet TAKE 1 TABLET BY MOUTH 2 (TWO) TIMES DAILY. INDICATIONS DEEP VEIN THROMBOSIS PREVENTION No Eliquis 5 mg tablet TAKE 1 TABLET BY MOUTH 2 (TWO) TIMES DAILY. INDICATION S DEEP VEIN THROMBOSIS PREVENTION [facility] ferrous sulfate 325 mg (65 mg iron) tablet Take 1 tablet every day by oral route. ferrous sulfate 325 mg (65 mg iron) tablet Take 1 tablet every day by oral route. No 1 Q1D ferrous sulfate 325 mg (65 mg iron) tablet Take 1 tablet every day by oral route. [facility] levothyroxi ne 50 mcg tablet Take 1 tablet every day by oral route. levothyroxi ne 50 mcg tablet Take 1 tablet every day by oral route. No 1 Q1D levothyrox ine 50 mcg tablet Take 1 tablet every day by oral route. [facility] Novolog Flexpen U-100 Insulin aspart 100 unit/mL (3 mL) subcutaneou s sliding scale: based on blood sugar Novolog Flexpen U-100 Insulin aspart 100 unit/mL (3 mL) subcutaneou s sliding scale: based on blood sugar No Novolog Flexpen U-100 Insulin aspart 100 unit/mL (3 mL) subcutaneo us sliding scale: based on blood sugar [facility] Ozempic 1 mg/dose (2 mg/1.5 mL) subcutaneou s pen injector INJECT 1 MG EVERY WEEK BY SUBCUTANEOU S ROUTE. Ozempic 1 mg/dose (2 mg/1.5 mL) subcutaneou s pen injector INJECT 1 MG EVERY WEEK BY SUBCUTANEOU S ROUTE. No Ozempic 1 mg/dose (2 mg/1.5 mL) subcutaneo us pen injector INJECT 1 MG EVERY WEEK BY SUBCUTANEO US ROUTE. [facility] pregabalin 300 mg capsule TAKE 1 CAPSULE BY MOUTH TWICE A DAY pregabalin 300 mg capsule TAKE 1 CAPSULE BY MOUTH TWICE A DAY No pregabalin 300 mg capsule TAKE 1 CAPSULE BY MOUTH TWICE A DAY [facility] doxycycline hyclate 100 mg capsule TAKE 1 CAPSULE BY MOUTH TWICE A DAY doxycycline hyclate 100 mg capsule TAKE 1 CAPSULE BY MOUTH TWICE A DAY No doxycyclin e hyclate 100 mg capsule TAKE 1 CAPSULE BY MOUTH TWICE A DAY [facility] Accu-Chek Phillip Plus test strips USE 1 STRIP 3 TIMES A DAY Accu-Chek Phillip Plus test strips USE 1 STRIP 3 TIMES A DAY No Accu-Chek Phillip Plus test strips USE 1 STRIP 3 TIMES A DAY [facility] Banophen 25 mg capsule TAKE 1 CAPSULE EVERY 6 HOURS BY ORAL ROUTE. As needed for Iching Banophen 25 mg capsule TAKE 1 CAPSULE EVERY 6 HOURS BY ORAL ROUTE. As needed for Iching No Banophen 25 mg capsule TAKE 1 CAPSULE EVERY 6 HOURS BY ORAL ROUTE. As needed for Iching [facility] BD Ultra-Fine Original Pen Needle 29 gauge x 1/2" USE 4 TIMES A DAY DIRECTED BD Ultra-Fine Original Pen Needle 29 gauge x 1/2" USE 4 TIMES A DAY DIRECTED No BD Ultra-Fine Original Pen Needle 29 gauge x 1/2" USE 4 TIMES A DAY DIRECTED [facility] doxycycline hyclate 100 mg capsule doxycycline hyclate 100 mg capsule No doxycyclin e hyclate 100 mg capsule [facility] Eliquis 5 mg tablet TAKE 1 TABLET BY MOUTH 2 (TWO) TIMES DAILY. INDICATIONS DEEP VEIN THROMBOSIS PREVENTION Eliquis 5 mg tablet TAKE 1 TABLET BY MOUTH 2 (TWO) TIMES DAILY. INDICATIONS DEEP VEIN THROMBOSIS PREVENTION No Eliquis 5 mg tablet TAKE 1 TABLET BY MOUTH 2 (TWO) TIMES DAILY. INDICATION S DEEP VEIN THROMBOSIS PREVENTION [facility] Novolog Flexpen U-100 Insulin aspart 100 unit/mL (3 mL) subcutaneou s sliding scale: based on blood sugar Novolog Flexpen U-100 Insulin aspart 100 unit/mL (3 mL) subcutaneou s sliding scale: based on blood sugar No Novolog Flexpen U-100 Insulin aspart 100 unit/mL (3 mL) subcutaneo us sliding scale: based on blood sugar [facility] Nystop 100,000 unit/gram topical powder APPLY TO THE AFFECTED AREA(S) BY TOPICAL ROUTE 2 TIMES PER DAY Nystop 100,000 unit/gram topical powder APPLY TO THE AFFECTED AREA(S) BY TOPICAL ROUTE 2 TIMES PER DAY No Nystop 100,000 unit/gram topical powder APPLY TO THE AFFECTED AREA(S) BY TOPICAL ROUTE 2 TIMES PER DAY [facility] Ozempic 1 mg/dose (2 mg/1.5 mL) subcutaneou s pen injector INJECT 1 MG EVERY WEEK BY SUBCUTANEOU S ROUTE. Ozempic 1 mg/dose (2 mg/1.5 mL) subcutaneou s pen injector INJECT 1 MG EVERY WEEK BY SUBCUTANEOU S ROUTE. No Ozempic 1 mg/dose (2 mg/1.5 mL) subcutaneo us pen injector INJECT 1 MG EVERY WEEK BY SUBCUTANEO US ROUTE. [facility] pregabalin 300 mg capsule TAKE 1 CAPSULE BY MOUTH TWICE A DAY pregabalin 300 mg capsule TAKE 1 CAPSULE BY MOUTH TWICE A DAY No pregabalin 300 mg capsule TAKE 1 CAPSULE BY MOUTH TWICE A DAY [facility] pramipexole 0.5 mg tablet pramipexole 0.5 mg tablet No pramipexol e 0.5 mg tablet [facility] Accu-Chek Phillip Plus test strips USE 1 STRIP 3 TIMES A DAY Accu-Chek Phillip Plus test strips USE 1 STRIP 3 TIMES A DAY No Accu-Chek Phillip Plus test strips USE 1 STRIP 3 TIMES A DAY [facility] Arnuity Ellipta 200 mcg/actuati on powder for inhalation INHALE 1 PUFF BY MOUTH EVERY 24 HOURS PRN Arnuity Ellipta 200 mcg/actuati on powder for inhalation INHALE 1 PUFF BY MOUTH EVERY 24 HOURS PRN No Arnuity Ellipta 200 mcg/actuat ion powder for inhalation INHALE 1 PUFF BY MOUTH EVERY 24 HOURS PRN [facility] aspirin 81 mg chewable tablet Chew 1 tablet every day by oral route. aspirin 81 mg chewable tablet Chew 1 tablet every day by oral route. No 1 Q1D aspirin 81 mg chewable tablet Chew 1 tablet every day by oral route. [facility] Banophen 25 mg capsule TAKE 1 CAPSULE EVERY 6 HOURS BY ORAL ROUTE. As needed for Iching Banophen 25 mg capsule TAKE 1 CAPSULE EVERY 6 HOURS BY ORAL ROUTE. As needed for Iching No Banophen 25 mg capsule TAKE 1 CAPSULE EVERY 6 HOURS BY ORAL ROUTE. As needed for Iching [facility] BD Ultra-Fine Original Pen Needle 29 gauge x 1/2" USE 4 TIMES A DAY DIRECTED BD Ultra-Fine Original Pen Needle 29 gauge x 1/2" USE 4 TIMES A DAY DIRECTED No BD Ultra-Fine Original Pen Needle 29 gauge x 1/2" USE 4 TIMES A DAY DIRECTED [facility] doxycycline hyclate 100 mg capsule doxycycline hyclate 100 mg capsule No doxycyclin e hyclate 100 mg capsule [facility] doxycycline hyclate 100 mg tablet doxycycline hyclate 100 mg tablet No doxycyclin e hyclate 100 mg tablet [facility] Eliquis 5 mg tablet TAKE 1 TABLET BY MOUTH 2 (TWO) TIMES DAILY. INDICATIONS DEEP VEIN THROMBOSIS PREVENTION Eliquis 5 mg tablet TAKE 1 TABLET BY MOUTH 2 (TWO) TIMES DAILY. INDICATIONS DEEP VEIN THROMBOSIS PREVENTION No Eliquis 5 mg tablet TAKE 1 TABLET BY MOUTH 2 (TWO) TIMES DAILY. INDICATION S DEEP VEIN THROMBOSIS PREVENTION [facility] Farxiga 10 mg tablet TAKE 1 TABLET BY MOUTH EVERY DAY Farxiga 10 mg tablet TAKE 1 TABLET BY MOUTH EVERY DAY No Farxiga 10 mg tablet TAKE 1 TABLET BY MOUTH EVERY DAY [facility] midodrine 5 mg tablet TAKE 1 TABLET BY MOUTH THREE TIMES A DAY midodrine 5 mg tablet TAKE 1 TABLET BY MOUTH THREE TIMES A DAY No midodrine 5 mg tablet TAKE 1 TABLET BY MOUTH THREE TIMES A DAY [facility] Novolog Flexpen U-100 Insulin aspart 100 unit/mL (3 mL) subcutaneou s sliding scale: based on blood sugar Novolog Flexpen U-100 Insulin aspart 100 unit/mL (3 mL) subcutaneou s sliding scale: based on blood sugar No Novolog Flexpen U-100 Insulin aspart 100 unit/mL (3 mL) subcutaneo us sliding scale: based on blood sugar [facility] Nystop 100,000 unit/gram topical powder APPLY TO THE AFFECTED AREA(S) BY TOPICAL ROUTE 2 TIMES PER DAY Nystop 100,000 unit/gram topical powder APPLY TO THE AFFECTED AREA(S) BY TOPICAL ROUTE 2 TIMES PER DAY No Nystop 100,000 unit/gram topical powder APPLY TO THE AFFECTED AREA(S) BY TOPICAL ROUTE 2 TIMES PER DAY [facility] Ozempic 1 mg/dose (2 mg/1.5 mL) subcutaneou s pen injector INJECT 1 MG EVERY WEEK BY SUBCUTANEOU S ROUTE. Ozempic 1 mg/dose (2 mg/1.5 mL) subcutaneou s pen injector INJECT 1 MG EVERY WEEK BY SUBCUTANEOU S ROUTE. No Ozempic 1 mg/dose (2 mg/1.5 mL) subcutaneo us pen injector INJECT 1 MG EVERY WEEK BY SUBCUTANEO US ROUTE. [facility] Ozempic 1 mg/dose (4 mg/3 mL) subcutaneou s pen injector INJECT 1 MG EVERY WEEK SUBCUTANEOU SLY Ozempic 1 mg/dose (4 mg/3 mL) subcutaneou s pen injector INJECT 1 MG EVERY WEEK SUBCUTANEOU SLY No Ozempic 1 mg/dose (4 mg/3 mL) subcutaneo us pen injector INJECT 1 MG EVERY WEEK SUBCUTANEO USLY [facility] potassium chloride ER 10 mEq tablet,exte nded release(par t/cryst) Take 2 tablets every day by oral route. potassium chloride ER 10 mEq tablet,exte nded release(par t/cryst) Take 2 tablets every day by oral route. No 2 Q1D potassium chloride ER 10 mEq tablet,ext ended release(pa rt/cryst) Take 2 tablets every day by oral route. [facility] pramipexole 0.75 mg tablet TAKE 1 TABLET BY MOUTH EVERYDAY AT BEDTIME pramipexole 0.75 mg tablet TAKE 1 TABLET BY MOUTH EVERYDAY AT BEDTIME No pramipexol e 0.75 mg tablet TAKE 1 TABLET BY MOUTH EVERYDAY AT BEDTIME [facility] pregabalin 300 mg capsule TAKE 1 CAPSULE BY MOUTH TWICE A DAY pregabalin 300 mg capsule TAKE 1 CAPSULE BY MOUTH TWICE A DAY No pregabalin 300 mg capsule TAKE 1 CAPSULE BY MOUTH TWICE A DAY [facility] Miralax 17 gram/dose oral powder Take by oral route. Miralax 17 gram/dose oral powder Take by oral route. No Miralax 17 gram/dose oral powder Take by oral route. [facility] cefadroxil 500 mg capsule TAKE 2CAPSULES BY MOUTH DAILY FOR 9 DAYS. cefadroxil 500 mg capsule TAKE 2CAPSULES BY MOUTH DAILY FOR 9 DAYS. No cefadroxil 500 mg capsule TAKE 2CAPSULES BY MOUTH DAILY FOR 9 DAYS. [facility] triamcinolo ne acetonide 0.1 % topical ointment APPLY TO AREA(S) 2 (TWO) TIMES DAILY NEEDED FOR RASH. triamcinolo ne acetonide 0.1 % topical ointment APPLY TO AREA(S) 2 (TWO) TIMES DAILY NEEDED FOR RASH. No triamcinol one acetonide 0.1 % topical ointment APPLY TO AREA(S) 2 (TWO) TIMES DAILY NEEDED FOR RASH. [facility] Accu-Chek Phillip Plus test strips USE 1 STRIP 3 TIMES A DAY Accu-Chek Phillip Plus test strips USE 1 STRIP 3 TIMES A DAY No Accu-Chek Phillip Plus test strips USE 1 STRIP 3 TIMES A DAY [facility] aspirin 81 mg chewable tablet Chew 1 tablet every day by oral route. aspirin 81 mg chewable tablet Chew 1 tablet every day by oral route. No aspirin 81 mg chewable tablet Chew 1 tablet every day by oral route. [facility] Banophen 25 mg capsule TAKE 1 CAPSULE EVERY 6 HOURS BY ORAL ROUTE. As needed for Iching Banophen 25 mg capsule TAKE 1 CAPSULE EVERY 6 HOURS BY ORAL ROUTE. As needed for Iching No Banophen 25 mg capsule TAKE 1 CAPSULE EVERY 6 HOURS BY ORAL ROUTE. As needed for Iching [facility] BD Ultra-Fine Original Pen Needle 29 gauge x 1/2" USE 4 TIMES A DAY DIRECTED BD Ultra-Fine Original Pen Needle 29 gauge x 1/2" USE 4 TIMES A DAY DIRECTED No BD Ultra-Fine Original Pen Needle 29 gauge x 1/2" USE 4 TIMES A DAY DIRECTED [facility] Eliquis 5 mg tablet TAKE 1 TABLET BY MOUTH 2 (TWO) TIMES DAILY. INDICATIONS : DVT PREVENTION Eliquis 5 mg tablet TAKE 1 TABLET BY MOUTH 2 (TWO) TIMES DAILY. INDICATIONS : DVT PREVENTION No Eliquis 5 mg tablet TAKE 1 TABLET BY MOUTH 2 (TWO) TIMES DAILY. INDICATION S: DVT PREVENTION [facility] Farxiga 10 mg tablet TAKE 1 TABLET BY MOUTH EVERY DAY Farxiga 10 mg tablet TAKE 1 TABLET BY MOUTH EVERY DAY No Farxiga 10 mg tablet TAKE 1 TABLET BY MOUTH EVERY DAY [facility] midodrine 5 mg tablet Take 1 tablet twice a day by oral route. midodrine 5 mg tablet Take 1 tablet twice a day by oral route. No 1 BID midodrine 5 mg tablet Take 1 tablet twice a day by oral route. [facility] Miralax 17 gram/dose oral powder Take by oral route. Miralax 17 gram/dose oral powder Take by oral route. No Miralax 17 gram/dose oral powder Take by oral route. [facility] Novolog Flexpen U-100 Insulin aspart 100 unit/mL (3 mL) subcutaneou s Inject 04-14-12 Novolog Flexpen U-100 Insulin aspart 100 unit/mL (3 mL) subcutaneou s Inject 04-14-12 No Novolog Flexpen U-100 Insulin aspart 100 unit/mL (3 mL) subcutaneo us Inject 04-14-12 [facility] Ozempic 1 mg/dose (4 mg/3 mL) subcutaneou s pen injector INJECT 1 MG SUBCUTANEOU SLY EVERY WEEK Ozempic 1 mg/dose (4 mg/3 mL) subcutaneou s pen injector INJECT 1 MG SUBCUTANEOU SLY EVERY WEEK No Ozempic 1 mg/dose (4 mg/3 mL) subcutaneo us pen injector INJECT 1 MG SUBCUTANEO USLY EVERY WEEK [facility] potassium chloride ER 10 mEq tablet,exte nded release(par t/cryst) TAKE 2 TABLETS BY MOUTH EVERY DAY potassium chloride ER 10 mEq tablet,exte nded release(par t/cryst) TAKE 2 TABLETS BY MOUTH EVERY DAY No potassium chloride ER 10 mEq tablet,ext ended release(pa rt/cryst) TAKE 2 TABLETS BY MOUTH EVERY DAY [facility] pramipexole 0.75 mg tablet Take 1 tablet every day by oral route. pramipexole 0.75 mg tablet Take 1 tablet every day by oral route. No 1 Q1D pramipexol e 0.75 mg tablet Take 1 tablet every day by oral route. [facility] Tresiba FlexTouch U-100 insulin 100 unit/mL (3 mL) subcutaneou s pen INJECT 70 UNITS UNDER THE SKIN ONCE DAILY Tresiba FlexTouch U-100 insulin 100 unit/mL (3 mL) subcutaneou s pen INJECT 70 UNITS UNDER THE SKIN ONCE DAILY No Tresiba FlexTouch U-100 insulin 100 unit/mL (3 mL) subcutaneo us pen INJECT 70 UNITS UNDER THE SKIN ONCE DAILY [facility] triamcinolo ne acetonide 0.1 % topical ointment APPLY TO AREA(S) 2 (TWO) TIMES DAILY NEEDED FOR RASH. triamcinolo ne acetonide 0.1 % topical ointment APPLY TO AREA(S) 2 (TWO) TIMES DAILY NEEDED FOR RASH. No triamcinol one acetonide 0.1 % topical ointment APPLY TO AREA(S) 2 (TWO) TIMES DAILY NEEDED FOR RASH. [facility] Accu-Chek Phillip Plus test strips USE 1 STRIP 3 TIMES A DAY Accu-Chek Phillip Plus test strips USE 1 STRIP 3 TIMES A DAY No Accu-Chek Phillip Plus test strips USE 1 STRIP 3 TIMES A DAY [facility] Arnuity Ellipta 200 mcg/actuati on powder for inhalation 1 puff PO qd Arnuity Ellipta 200 mcg/actuati on powder for inhalation 1 puff PO qd No Arnuity Ellipta 200 mcg/actuat ion powder for inhalation 1 puff PO qd [facility] Immunizations Ordered Immunization Name Filled Immunization Name Date Status Comments Source TDAP 2023-11-11 00:00:00 Completed TDAP 2023-11-11 00:00:00 Completed TDAP 2023-11-11 00:00:00 Completed Influenza Virus Vaccine,quad Im,preserve Free 2022-05-10 00:00:00 Completed [facility] Influenza Virus Vaccine,quad Im,preserve Free 2022-05-10 00:00:00 Completed [facility] Influenza Virus Vaccine,quad Im,preserve Free 2022-05-10 00:00:00 Completed [facility] Influenza Virus Vaccine,quad Im,preserve Free 2022-05-10 00:00:00 Completed [facility] Influenza Virus Vaccine,quad Im,preserve Free 2022-05-10 00:00:00 Completed [facility] Influenza Virus Vaccine,quad Im,preserve Free 2022-05-10 00:00:00 Completed [facility] Influenza Virus Vaccine,quad Im,preserve Free 2022-05-10 00:00:00 Completed [facility] Influenza Virus Vaccine,quad Im,preserve Free 2022-05-10 00:00:00 Completed [facility] Influenza Virus Vaccine,quad Im,preserve Free 2022-05-10 00:00:00 Completed [facility] Influenza Virus Vaccine,quad Im,preserve Free 2022-05-10 00:00:00 Completed [facility] Influenza Virus Vaccine,quad Im,preserve Free 2022-05-10 00:00:00 Completed [facility] Influenza Virus Vaccine,quad Im,preserve Free 2022-05-10 00:00:00 Completed [facility] Influenza Virus Vaccine,quad Im,preserve Free 2022-05-10 00:00:00 Completed [facility] Influenza Virus Vaccine,quad Im,preserve Free 2022-05-10 00:00:00 Completed [facility] Influenza Virus Vaccine,quad Im,preserve Free 2022-05-10 00:00:00 Completed [facility] Influenza Virus Vaccine,quad Im,preserve Free 2022-05-10 00:00:00 Completed [facility] Influenza Virus Vaccine,quad Im,preserve Free 2022-05-10 00:00:00 Completed [facility] Influenza Virus Vaccine,quad Im,preserve Free 2022-05-10 00:00:00 Completed [facility] Influenza Virus Vaccine,quad Im,preserve Free 2022-05-10 00:00:00 Completed [facility] Influenza Virus Vaccine,quad Im,preserve Free 2022-05-10 00:00:00 Completed [facility] Influenza Virus Vaccine,quad Im,preserve Free 2022-05-10 00:00:00 Completed [facility] Influenza Virus Vaccine,quad Im,preserve Free 2022-05-10 00:00:00 Completed [facility] Influenza Virus Vaccine,quad Im,preserve Free 2022-05-10 00:00:00 Completed [facility] Influenza Virus Vaccine,quad Im,preserve Free 2022-05-10 00:00:00 Completed [facility] Influenza Virus Vaccine,quad Im,preserve Free 2022-05-10 00:00:00 Completed [facility] Influenza Virus Vaccine,quad Im,preserve Free 2022-05-10 00:00:00 Completed [facility] Influenza Virus Vaccine,quad Im,preserve Free 2022-05-10 00:00:00 Completed [facility] Influenza Virus Vaccine,quad Im,preserve Free 2022-05-10 00:00:00 Completed [facility] Influenza Virus Vaccine,quad Im,preserve Free 2022-05-10 00:00:00 Completed [facility] Influenza Virus Vaccine,quad Im,preserve Free 2022-05-10 00:00:00 Completed [facility] Influenza Virus Vaccine,quad Im,preserve Free 2022-05-10 00:00:00 Completed [facility] Influenza Virus Vaccine,quad Im,preserve Free 2022-05-10 00:00:00 Completed [facility] Influenza Virus Vaccine,quad Im,preserve Free 2022-05-10 00:00:00 Completed [facility] Influenza Virus Vaccine,quad Im,preserve Free 2022-05-10 00:00:00 Completed [facility] Influenza Virus Vaccine,quad Im,preserve Free 2022-05-10 00:00:00 Completed [facility] Influenza Virus Vaccine,quad Im,preserve Free 2022-05-10 00:00:00 Completed [facility] Influenza Virus Vaccine,quad Im,preserve Free 2022-05-10 00:00:00 Completed [facility] Influenza Virus Vaccine,quad Im,preserve Free 2022-05-10 00:00:00 Completed [facility] Influenza Virus Vaccine,quad Im,preserve Free 2022-05-10 00:00:00 Completed [facility] Influenza Virus Vaccine,quad Im,preserve Free 2022-05-10 00:00:00 Completed [facility] Influenza Virus Vaccine,quad Im,preserve Free 2022-05-10 00:00:00 Completed [facility] Influenza Virus Vaccine,quad Im,preserve Free 2022-05-10 00:00:00 Completed [facility] Influenza Virus Vaccine,quad Im,preserve Free 2022-05-10 00:00:00 Completed [facility] Influenza Virus Vaccine,quad Im,preserve Free 2022-05-10 00:00:00 Completed [facility] Influenza Virus Vaccine,quad Im,preserve Free 2022-05-10 00:00:00 Completed [facility] Influenza Virus Vaccine,quad Im,preserve Free 2022-05-10 00:00:00 Completed [facility] Influenza Virus Vaccine,quad Im,preserve Free 2022-05-10 00:00:00 Completed [facility] Influenza Virus Vaccine,quad Im,preserve Free 2022-05-10 00:00:00 Completed [facility] Influenza Virus Vaccine,quad Im,preserve Free 2022-05-10 00:00:00 Completed [facility] Influenza Virus Vaccine,quad Im,preserve Free 2022-05-10 00:00:00 Completed [facility] Influenza Virus Vaccine,quad Im,preserve Free 2022-05-10 00:00:00 Completed [facility] Influenza Virus Vaccine,quad Im,preserve Free 2022-05-10 00:00:00 Completed [facility] Influenza Virus Vaccine,quad Im,preserve Free 2022-05-10 00:00:00 Completed [facility] Influenza Virus Vaccine,quad Im,preserve Free 2022-05-10 00:00:00 Completed [facility] Influenza Virus Vaccine,quad Im,preserve Free 2022-05-10 00:00:00 Completed [facility] Influenza Virus Vaccine,quad Im,preserve Free 2022-05-10 00:00:00 Completed [facility] Influenza Virus Vaccine,quad Im,preserve Free 2022-05-10 00:00:00 Completed [facility] Influenza Virus Vaccine,quad Im,preserve Free 2022-05-10 00:00:00 Completed [facility] Influenza Virus Vaccine,quad Im,preserve Free 2022-05-10 00:00:00 Completed [facility] Influenza Virus Vaccine,quad Im,preserve Free 2022-05-10 00:00:00 Completed [facility] Influenza Virus Vaccine,quad Im,preserve Free 2022-05-10 00:00:00 [facility]pleted [facility] [facility] Influenza Virus Vaccine,quad Im,preserve Free 2022-05-10 00:00:00 Completed [facility] Influenza Virus Vaccine,quad Im,preserve Free 2022-05-10 00:00:00 Completed [facility] Influenza Virus Vaccine,quad Im,preserve Free 2022-05-10 00:00:00 Completed [facility] Influenza Virus Vaccine,quad Im,preserve Free 2022-05-10 00:00:00 Completed [facility] Influenza Virus Vaccine,quad Im,preserve Free 2022-05-10 00:00:00 Completed [facility] Influenza Virus Vaccine,quad Im,preserve Free 2022-05-10 00:00:00 Completed [facility] Influenza Virus Vaccine,quad Im,preserve Free 2022-05-10 00:00:00 Completed [facility] Influenza Virus Vaccine,quad Im,preserve Free 2022-05-10 00:00:00 Completed [facility] Influenza Virus Vaccine,quad Im,preserve Free 2022-05-10 00:00:00 Completed [facility] Influenza Virus Vaccine,quad Im,preserve Free 2022-05-10 00:00:00 Completed [facility] Influenza Virus Vaccine,quad Im,preserve Free 2022-05-10 00:00:00 Completed [facility] Influenza Virus Vaccine,quad Im,preserve Free 2022-05-10 00:00:00 Completed [facility] Influenza Virus Vaccine,quad Im,preserve Free 2022-05-10 00:00:00 Completed [facility] Influenza Virus Vaccine,quad Im,preserve Free 2022-05-10 00:00:00 Completed [facility] Influenza Virus Vaccine,quad Im,preserve Free 2022-05-10 00:00:00 Completed [facility] Influenza Virus Vaccine,quad Im,preserve Free 2022-05-10 00:00:00 Completed [facility] Influenza Virus Vaccine,quad Im,preserve Free 2022-05-10 00:00:00 Completed [facility] Influenza Virus Vaccine,quad Im,preserve Free 07 00:00:00 Completed [facility] Influenza Virus Vaccine,quad Im,preserve Free 65+ 2022-05-10 00:00:00 Completed [facility] Influenza Virus Vaccine,quad Im,preserve Free 65+ 2022-05-10 00:00:00 Completed [facility] Influenza Virus Vaccine,quad Im,preserve Free 65+ 2022-05-10 00:00:00 Completed [facility] Influenza Virus Vaccine,quad Im,preserve Free 65+ 2022-05-10 00:00:00 Completed [facility] Influenza Virus Vaccine,quad Im,preserve Free 65+ 2022-05-10 00:00:00 Completed [facility] Influenza Virus Vaccine,quad Im,preserve Free 65+ 2022-05-10 00:00:00 Completed [facility] Influenza Virus Vaccine,quad Im,preserve Free 65+ 2022-05-10 00:00:00 Completed [facility] Influenza Virus Vaccine,quad Im,preserve Free 65+ 2022-05-10 00:00:00 Completed [facility] Influenza Virus Vaccine,quad Im,preserve Free 65+ 2022-05-10 00:00:00 Completed [facility] Influenza Virus Vaccine,quad Im,preserve Free 65+ 2022-05-10 00:00:00 Completed [facility] Influenza Virus Vaccine,quad Im,preserve Free 65+ 2022-05-10 00:00:00 Completed [facility] Influenza Virus Vaccine,quad Im,preserve Free 65+ (FLUAD) 2022-05-10 00:00:00 Completed [facility] Influenza Virus Vaccine,quad Im,preserve Free 65+ (FLUAD) 2022-05-10 00:00:00 Completed [facility] Influenza Virus Vaccine,quad Im,preserve Free 65+ (FLUAD) 2022-05-10 00:00:00 Completed [facility] Influenza Virus Vaccine,quad Im,preserve Free 65+ (FLUAD) 2022-05-10 00:00:00 Completed [facility] Influenza Virus Vaccine,quad Im,preserve Free 65+ (FLUAD) 2022-05-10 00:00:00 Completed [facility] Influenza Virus Vaccine,quad Im,preserve Free 65+ (FLUAD) 2022-05-10 00:00:00 Completed [facility] Influenza Virus Vaccine,quad Im,preserve Free 65+ (FLUAD) 2022-05-10 00:00:00 Completed [facility] Influenza Virus Vaccine,quad Im,preserve Free 65+ (FLUAD) 2022-05-10 00:00:00 Completed [facility] Influenza Virus Vaccine,quad Im,preserve Free 65+ (FLUAD) 2022-05-10 00:00:00 Completed [facility] Influenza Virus Vaccine,quad Im,preserve Free 65+ (FLUAD) 2022-05-10 00:00:00 Completed [facility] SARS-COV-2 COVID-19 UNSPECIFIED VACCINE 2020-09-29 00:00:00 Completed [facility] SARS-COV-2 COVID-19 UNSPECIFIED VACCINE 2020-09-29 00:00:00 Completed [facility] SARS-COV-2 COVID-19 UNSPECIFIED VACCINE 2020-09-29 00:00:00 Completed [facility] SARS-COV-2 COVID-19 UNSPECIFIED VACCINE 2020-09-29 00:00:00 Completed [facility] SARS-COV-2 COVID-19 UNSPECIFIED VACCINE 2020-09-29 00:00:00 Completed [facility] SARS-COV-2 COVID-19 UNSPECIFIED VACCINE 2020-09-29 00:00:00 Completed [facility] SARS-COV-2 COVID-19 UNSPECIFIED VACCINE 2020-09-29 00:00:00 Completed [facility] SARS-COV-2 COVID-19 UNSPECIFIED VACCINE 2020-09-29 00:00:00 Completed [facility] SARS-COV-2 COVID-19 UNSPECIFIED VACCINE 2020-09-29 00:00:00 Completed [facility] SARS-COV-2 COVID-19 UNSPECIFIED VACCINE 2020-09-29 00:00:00 Completed [facility] SARS-COV-2 COVID-19 UNSPECIFIED VACCINE 2020-09-29 00:00:00 Completed [facility] SARS-COV-2 COVID-19 UNSPECIFIED VACCINE 2020-09-29 00:00:00 Completed [facility] SARS-COV-2 COVID-19 UNSPECIFIED VACCINE 2020-09-29 00:00:00 Completed [facility] SARS-COV-2 COVID-19 UNSPECIFIED VACCINE 2020-09-29 00:00:00 Completed [facility] SARS-COV-2 COVID-19 UNSPECIFIED VACCINE 2020-09-29 00:00:00 Completed [facility] SARS-COV-2 COVID-19 UNSPECIFIED VACCINE 2020-09-29 00:00:00 Completed [facility] SARS-COV-2 COVID-19 UNSPECIFIED VACCINE 2020-09-29 00:00:00 Completed [facility] SARS-COV-2 COVID-19 UNSPECIFIED VACCINE 2020-09-29 00:00:00 Completed [facility] SARS-COV-2 COVID-19 UNSPECIFIED VACCINE 2020-09-29 00:00:00 Completed [facility] SARS-COV-2 COVID-19 UNSPECIFIED VACCINE 2020-09-29 00:00:00 Completed [facility] SARS-COV-2 COVID-19 UNSPECIFIED VACCINE 2020-09-29 00:00:00 Completed [facility] SARS-COV-2 COVID-19 UNSPECIFIED VACCINE 2020-09-29 00:00:00 Completed [facility] SARS-COV-2 COVID-19 UNSPECIFIED VACCINE 2020-09-29 00:00:00 Completed [facility] SARS-COV-2 COVID-19 UNSPECIFIED VACCINE 2020-09-29 00:00:00 Completed [facility] SARS-COV-2 COVID-19 UNSPECIFIED VACCINE 2020-09-29 00:00:00 Completed [facility] SARS-COV-2 COVID-19 UNSPECIFIED VACCINE 2020-09-29 00:00:00 Completed [facility] SARS-COV-2 COVID-19 UNSPECIFIED VACCINE 2020-09-29 00:00:00 Completed [facility] SARS-COV-2 COVID-19 UNSPECIFIED VACCINE 2020-09-29 00:00:00 Completed [facility] SARS-COV-2 COVID-19 UNSPECIFIED VACCINE 2020-09-29 00:00:00 Completed [facility] SARS-COV-2 COVID-19 UNSPECIFIED VACCINE 2020-09-29 00:00:00 Completed [facility] SARS-COV-2 COVID-19 UNSPECIFIED VACCINE 2020-09-29 00:00:00 Completed [facility] SARS-COV-2 COVID-19 UNSPECIFIED VACCINE 2020-09-29 00:00:00 Completed [facility] SARS-COV-2 COVID-19 UNSPECIFIED VACCINE 2020-09-29 00:00:00 Completed [facility] SARS-COV-2 COVID-19 UNSPECIFIED VACCINE 2020-09-29 00:00:00 Completed [facility] SARS-COV-2 COVID-19 UNSPECIFIED VACCINE 2020-09-29 00:00:00 Completed [facility] SARS-COV-2 COVID-19 UNSPECIFIED VACCINE 2020-09-29 00:00:00 Completed [facility] SARS-COV-2 COVID-19 UNSPECIFIED VACCINE 2020-09-29 00:00:00 Completed [facility] SARS-COV-2 COVID-19 UNSPECIFIED VACCINE 2020-09-29 00:00:00 Completed [facility] SARS-COV-2 COVID-19 UNSPECIFIED VACCINE 2020-09-29 00:00:00 Completed [facility] SARS-COV-2 COVID-19 UNSPECIFIED VACCINE 2020-09-29 00:00:00 Completed [facility] SARS-COV-2 COVID-19 UNSPECIFIED VACCINE 2020-09-29 00:00:00 Completed [facility] SARS-COV-2 COVID-19 UNSPECIFIED VACCINE 2020-09-29 00:00:00 Completed [facility] SARS-COV-2 COVID-19 UNSPECIFIED VACCINE 2020-09-29 00:00:00 Completed [facility] SARS-COV-2 COVID-19 UNSPECIFIED VACCINE 2020-09-29 00:00:00 Completed [facility] SARS-COV-2 COVID-19 UNSPECIFIED VACCINE 2020-09-29 00:00:00 Completed [facility] SARS-COV-2 COVID-19 UNSPECIFIED VACCINE 2020-09-29 00:00:00 Completed [facility] SARS-COV-2 COVID-19 UNSPECIFIED VACCINE 2020-09-29 00:00:00 Completed [facility] SARS-COV-2 COVID-19 UNSPECIFIED VACCINE 2020-09-29 00:00:00 Completed [facility] SARS-COV-2 COVID-19 UNSPECIFIED VACCINE 2020-09-29 00:00:00 Completed [facility] SARS-COV-2 COVID-19 UNSPECIFIED VACCINE 2020-09-29 00:00:00 Completed [facility] SARS-COV-2 COVID-19 UNSPECIFIED VACCINE 2020-09-29 00:00:00 Completed [facility] SARS-COV-2 COVID-19 UNSPECIFIED VACCINE 2020-09-29 00:00:00 Completed [facility] SARS-COV-2 COVID-19 UNSPECIFIED VACCINE 2020-09-29 00:00:00 Completed [facility] SARS-COV-2 COVID-19 UNSPECIFIED VACCINE 2020-09-29 00:00:00 Completed [facility] SARS-COV-2 COVID-19 UNSPECIFIED VACCINE 2020-09-29 00:00:00 Completed [facility] SARS-COV-2 COVID-19 UNSPECIFIED VACCINE 2020-09-29 00:00:00 Completed [facility] SARS-COV-2 COVID-19 UNSPECIFIED VACCINE 2020-09-29 00:00:00 Completed [facility] SARS-COV-2 COVID-19 UNSPECIFIED VACCINE 2020-09-29 00:00:00 Completed [facility] SARS-COV-2 COVID-19 UNSPECIFIED VACCINE 2020-09-29 00:00:00 Completed [facility] SARS-COV-2 COVID-19 UNSPECIFIED VACCINE 2020-09-29 00:00:00 Completed [facility] SARS-COV-2 COVID-19 UNSPECIFIED VACCINE 2020-09-29 00:00:00 Completed [facility] SARS-COV-2 COVID-19 UNSPECIFIED VACCINE 2020-09-29 00:00:00 Completed [facility] SARS-COV-2 COVID-19 UNSPECIFIED VACCINE 2020-09-29 00:00:00 Completed [facility] SARS-COV-2 COVID-19 UNSPECIFIED VACCINE 2020-09-29 00:00:00 Completed [facility] SARS-COV-2 COVID-19 UNSPECIFIED VACCINE 2020-09-29 00:00:00 Completed [facility] SARS-COV-2 COVID-19 UNSPECIFIED VACCINE 2020-09-29 00:00:00 Completed [facility] SARS-COV-2 COVID-19 UNSPECIFIED VACCINE 2020-09-29 00:00:00 Completed [facility] SARS-COV-2 COVID-19 UNSPECIFIED VACCINE 2020-09-29 00:00:00 Completed [facility] SARS-COV-2 COVID-19 VACCINE - (MODERNA) 2020-09-29 00:00:00 Completed [facility] SARS-COV-2 COVID-19 UNSPECIFIED VACCINE 2020-09-29 00:00:00 Completed [facility] SARS-COV-2 COVID-19 VACCINE - (MODERNA) 2020-09-29 00:00:00 Completed [facility] SARS-COV-2 COVID-19 UNSPECIFIED VACCINE 2020-09-29 00:00:00 Completed [facility] SARS-COV-2 COVID-19 VACCINE - (MODERNA) 2020-09-29 00:00:00 Completed [facility] SARS-COV-2 COVID-19 VACCINE - (MODERNA) 2020-09-29 00:00:00 Completed [facility] SARS-COV-2 COVID-19 UNSPECIFIED VACCINE 2020-09-29 00:00:00 Completed [facility] SARS-COV-2 COVID-19 VACCINE - (MODERNA) 2020-09-29 00:00:00 Completed [facility] SARS-COV-2 COVID-19 UNSPECIFIED VACCINE 2020-09-29 00:00:00 Completed [facility] SARS-COV-2 COVID-19 VACCINE - (MODERNA) 2020-09-29 00:00:00 Completed [facility] SARS-COV-2 COVID-19 UNSPECIFIED VACCINE 2020-09-29 00:00:00 Completed [facility] SARS-COV-2 COVID-19 VACCINE - (MODERNA) 2020-09-29 00:00:00 Completed [facility] SARS-COV-2 COVID-19 UNSPECIFIED VACCINE 2020-09-29 00:00:00 Completed [facility] SARS-COV-2 COVID-19 VACCINE - (MODERNA) 2020-09-29 00:00:00 Completed [facility] SARS-COV-2 COVID-19 UNSPECIFIED VACCINE 2020-09-29 00:00:00 Completed [facility] SARS-COV-2 COVID-19 VACCINE - (MODERNA) 2020-09-29 00:00:00 Completed [facility] SARS-COV-2 COVID-19 UNSPECIFIED VACCINE 2020-09-29 00:00:00 Completed [facility] SARS-COV-2 COVID-19 VACCINE - (MODERNA) 2020-09-29 00:00:00 Completed [facility] SARS-COV-2 COVID-19 UNSPECIFIED VACCINE 2020-09-29 00:00:00 Completed [facility] SARS-COV-2 COVID-19 VACCINE - (MODERNA) 2020-09-29 00:00:00 Completed [facility] SARS-COV-2 COVID-19 UNSPECIFIED VACCINE 2020-09-29 00:00:00 Completed [facility] SARS-COV-2 COVID-19 VACCINE - (MODERNA) 2020-09-29 00:00:00 Completed [facility] SARS-COV-2 COVID-19 UNSPECIFIED VACCINE 2020-09-29 00:00:00 Completed [facility] SARS-COV-2 COVID-19 VACCINE - (MODERNA) 2020-09-29 00:00:00 Completed [facility] SARS-COV-2 COVID-19 UNSPECIFIED VACCINE 2020-09-29 00:00:00 Completed [facility] SARS-COV-2 COVID-19 VACCINE - (MODERNA) 2020-09-29 00:00:00 Completed [facility] SARS-COV-2 COVID-19 UNSPECIFIED VACCINE 2020-09-29 00:00:00 Completed [facility] SARS-COV-2 COVID-19 VACCINE - (MODERNA) 2020-09-29 00:00:00 Completed [facility] SARS-COV-2 COVID-19 UNSPECIFIED VACCINE 2020-09-29 00:00:00 Completed [facility] SARS-COV-2 COVID-19 VACCINE - (MODERNA) 2020-09-29 00:00:00 Completed [facility] SARS-COV-2 COVID-19 UNSPECIFIED VACCINE 2020-09-29 00:00:00 Completed [facility] SARS-COV-2 COVID-19 VACCINE - (MODERNA) 2020-09-29 00:00:00 Completed [facility] SARS-COV-2 COVID-19 UNSPECIFIED VACCINE 2020-09-29 00:00:00 Completed [facility] SARS-COV-2 COVID-19 VACCINE - (MODERNA) 2020-09-29 00:00:00 Completed [facility] SARS-COV-2 COVID-19 UNSPECIFIED VACCINE 2020-09-29 00:00:00 Completed [facility] SARS-COV-2 COVID-19 VACCINE - (MODERNA) 2020-09-29 00:00:00 Completed [facility] SARS-COV-2 COVID-19 UNSPECIFIED VACCINE 2020-09-29 00:00:00 Completed [facility] SARS-COV-2 COVID-19 VACCINE - (MODERNA) 2020-09-29 00:00:00 Completed [facility] SARS-COV-2 COVID-19 UNSPECIFIED VACCINE 2020-09-29 00:00:00 Completed [facility] SARS-COV-2 COVID-19 VACCINE - (MODERNA) 2020-09-29 00:00:00 Completed [facility] SARS-COV-2 COVID-19 UNSPECIFIED VACCINE 2020-09-29 00:00:00 Completed [facility] SARS-COV-2 COVID-19 VACCINE - (MODERNA) 2020-09-29 00:00:00 Completed [facility] SARS-COV-2 COVID-19 UNSPECIFIED VACCINE 2020-09-29 00:00:00 Completed [facility] SARS-COV-2 COVID-19 VACCINE - (MODERNA) 2020-09-29 00:00:00 Completed [facility] SARS-COV-2 COVID-19 UNSPECIFIED VACCINE 2020-09-29 00:00:00 Completed [facility] SARS-COV-2 COVID-19 VACCINE - (MODERNA) 2020-09-29 00:00:00 Completed [facility] SARS-COV-2 COVID-19 UNSPECIFIED VACCINE 2020-09-29 00:00:00 Completed [facility] SARS-COV-2 COVID-19 VACCINE - (MODERNA) 2020-09-29 00:00:00 Completed [facility] SARS-COV-2 COVID-19 UNSPECIFIED VACCINE 2020-09-29 00:00:00 Completed [facility] SARS-COV-2 COVID-19 VACCINE - (MODERNA) 2020-09-29 00:00:00 Completed [facility] SARS-COV-2 COVID-19 UNSPECIFIED VACCINE 2020-09-29 00:00:00 Completed [facility] SARS-COV-2 COVID-19 VACCINE - (MODERNA) 2020-09-29 00:00:00 Completed [facility] SARS-COV-2 COVID-19 UNSPECIFIED VACCINE 2020-09-29 00:00:00 Completed [facility] SARS-COV-2 COVID-19 VACCINE - (MODERNA) 2020-09-29 00:00:00 Completed [facility] SARS-COV-2 COVID-19 UNSPECIFIED VACCINE 2020-09-29 00:00:00 Completed [facility] SARS-COV-2 COVID-19 VACCINE - (MODERNA) 2020-09-29 00:00:00 Completed [facility] SARS-COV-2 COVID-19 UNSPECIFIED VACCINE 2020-09-29 00:00:00 Completed [facility] SARS-COV-2 COVID-19 VACCINE - (MODERNA) 2020-09-29 00:00:00 Completed [facility] SARS-COV-2 COVID-19 UNSPECIFIED VACCINE 2020-09-29 00:00:00 Completed [facility] SARS-COV-2 COVID-19 VACCINE - (MODERNA) 2020-09-29 00:00:00 Completed [facility] SARS-COV-2 COVID-19 UNSPECIFIED VACCINE 2020-09-29 00:00:00 Completed [facility] SARS-COV-2 COVID-19 VACCINE - (MODERNA) 2020-09-29 00:00:00 Completed [facility] SARS-COV-2 COVID-19 UNSPECIFIED VACCINE 2020-09-29 00:00:00 Completed [facility] SARS-COV-2 COVID-19 VACCINE - (MODERNA) 2020-09-29 00:00:00 Completed [facility] SARS-COV-2 COVID-19 UNSPECIFIED VACCINE 2020-09-29 00:00:00 Completed [facility] SARS-COV-2 COVID-19 VACCINE - (MODERNA) 2020-09-29 00:00:00 Completed [facility] SARS-COV-2 COVID-19 UNSPECIFIED VACCINE 2020-09-29 00:00:00 Completed [facility] SARS-COV-2 COVID-19 VACCINE - (MODERNA) 2020-09-29 00:00:00 Completed [facility] SARS-COV-2 COVID-19 UNSPECIFIED VACCINE 2020-09-29 00:00:00 Completed [facility] SARS-COV-2 COVID-19 VACCINE - (MODERNA) 2020-09-29 00:00:00 Completed [facility] SARS-COV-2 COVID-19 UNSPECIFIED VACCINE 2020-09-29 00:00:00 Completed [facility] SARS-COV-2 COVID-19 VACCINE - (MODERNA) 2020-09-29 00:00:00 Completed [facility] SARS-COV-2 COVID-19 UNSPECIFIED VACCINE 2020-09-29 00:00:00 Completed [facility] SARS-COV-2 COVID-19 VACCINE - (MODERNA) 2020-09-29 00:00:00 Completed [facility] SARS-COV-2 COVID-19 UNSPECIFIED VACCINE 2020-09-29 00:00:00 Completed [facility] SARS-COV-2 COVID-19 VACCINE - (MODERNA) 2020-09-29 00:00:00 Completed [facility] SARS-COV-2 COVID-19 UNSPECIFIED VACCINE 2020-09-29 00:00:00 Completed [facility] SARS-COV-2 COVID-19 VACCINE - (MODERNA) 2020-09-29 00:00:00 Completed [facility] SARS-COV-2 COVID-19 UNSPECIFIED VACCINE 2020-09-29 00:00:00 Completed [facility] SARS-COV-2 COVID-19 VACCINE - (MODERNA) 2020-09-29 00:00:00 Completed [facility] SARS-COV-2 COVID-19 UNSPECIFIED VACCINE 2020-09-29 00:00:00 Completed [facility] SARS-COV-2 COVID-19 VACCINE - (MODERNA) 2020-09-29 00:00:00 Completed [facility] SARS-COV-2 COVID-19 UNSPECIFIED VACCINE 2020-09-29 00:00:00 Completed [facility] SARS-COV-2 COVID-19 VACCINE - (MODERNA) 2020-09-29 00:00:00 Completed [facility] SARS-COV-2 COVID-19 UNSPECIFIED VACCINE 2020-09-29 00:00:00 Completed [facility] SARS-COV-2 COVID-19 VACCINE - (MODERNA) 2020-09-29 00:00:00 Completed [facility] SARS-COV-2 COVID-19 UNSPECIFIED VACCINE 2020-09-29 00:00:00 Completed [facility] SARS-COV-2 COVID-19 VACCINE - (MODERNA) 2020-09-29 00:00:00 Completed [facility] SARS-COV-2 COVID-19 UNSPECIFIED VACCINE 2020-09-29 00:00:00 Completed [facility] SARS-COV-2 COVID-19 VACCINE - (MODERNA) 2020-09-29 00:00:00 Completed [facility] SARS-COV-2 COVID-19 UNSPECIFIED VACCINE 2020-09-29 00:00:00 Completed [facility] SARS-COV-2 COVID-19 VACCINE - (MODERNA) 2020-09-29 00:00:00 Completed [facility] SARS-COV-2 COVID-19 UNSPECIFIED VACCINE 2020-09-29 00:00:00 Completed [facility] SARS-COV-2 COVID-19 VACCINE - (MODERNA) 2020-09-29 00:00:00 Completed [facility] SARS-COV-2 COVID-19 UNSPECIFIED VACCINE 2020-09-29 00:00:00 Completed [facility] SARS-COV-2 COVID-19 VACCINE - (MODERNA) 2020-09-29 00:00:00 Completed [facility] SARS-COV-2 COVID-19 UNSPECIFIED VACCINE 2020-09-29 00:00:00 Completed [facility] SARS-COV-2 COVID-19 VACCINE - (MODERNA) 2020-09-29 00:00:00 Completed [facility] SARS-COV-2 COVID-19 UNSPECIFIED VACCINE 2020-09-29 00:00:00 Completed [facility] SARS-COV-2 COVID-19 VACCINE - (MODERNA) 2020-09-29 00:00:00 Completed [facility] SARS-COV-2 COVID-19 UNSPECIFIED VACCINE 2020-09-29 00:00:00 Completed [facility] SARS-COV-2 COVID-19 VACCINE - (MODERNA) 2020-09-29 00:00:00 Completed [facility] SARS-COV-2 COVID-19 UNSPECIFIED VACCINE 2020-09-29 00:00:00 Completed [facility] SARS-COV-2 COVID-19 VACCINE - (MODERNA) 2020-09-29 00:00:00 Completed [facility] SARS-COV-2 COVID-19 UNSPECIFIED VACCINE 2020-09-29 00:00:00 Completed [facility] SARS-COV-2 COVID-19 VACCINE - (MODERNA) 2020-09-29 00:00:00 Completed [facility] SARS-COV-2 COVID-19 UNSPECIFIED VACCINE 2020-09-29 00:00:00 Completed [facility] SARS-COV-2 COVID-19 VACCINE - (MODERNA) 2020-09-29 00:00:00 Completed [facility] SARS-COV-2 COVID-19 UNSPECIFIED VACCINE 2020-09-29 00:00:00 Completed [facility] SARS-COV-2 COVID-19 VACCINE - (MODERNA) 2020-09-29 00:00:00 Completed [facility] SARS-COV-2 COVID-19 UNSPECIFIED VACCINE 2020-09-29 00:00:00 Completed [facility] SARS-COV-2 COVID-19 VACCINE - (MODERNA) 2020-09-29 00:00:00 Completed [facility] SARS-COV-2 COVID-19 UNSPECIFIED VACCINE 2020-09-29 00:00:00 Completed [facility] SARS-COV-2 COVID-19 VACCINE - (MODERNA) 2020-09-29 00:00:00 Completed [facility] SARS-COV-2 COVID-19 UNSPECIFIED VACCINE 2020-09-29 00:00:00 Completed [facility] SARS-COV-2 COVID-19 VACCINE - (MODERNA) 2020-09-29 00:00:00 Completed [facility] SARS-COV-2 COVID-19 UNSPECIFIED VACCINE 2020-09-29 00:00:00 Completed [facility] SARS-COV-2 COVID-19 VACCINE - (MODERNA) 2020-09-29 00:00:00 Completed [facility] SARS-COV-2 COVID-19 UNSPECIFIED VACCINE 2020-09-29 00:00:00 Completed SARS-COV-2 COVID-19 VACCINE - (MODERNA) 2020-09-29 00:00:00 Completed SARS-COV-2 COVID-19 UNSPECIFIED VACCINE 2020-09-29 00:00:00 Completed SARS-COV-2 COVID-19 VACCINE - (MODERNA) 2020-09-29 00:00:00 Completed SARS-COV-2 COVID-19 UNSPECIFIED VACCINE 2020-09-29 00:00:00 Completed SARS-COV-2 COVID-19 VACCINE - (MODERNA) 2020-09-29 00:00:00 Completed SARS-COV-2 (COVID-19) vaccine, UNSPECIFIED SARS-COV-2 (COVID-19) vaccine, UNSPECIFIED 2020-09-29 00:00:00 Completed [facility] SARS-COV-2 (COVID-19) vaccine, UNSPECIFIED SARS-COV-2 (COVID-19) vaccine, UNSPECIFIED 2020-09-29 00:00:00 Completed [facility] COVID-19 (SARS-COV-2) vaccine, unspecified COVID-19 (SARS-COV-2) vaccine, unspecified 2020-09-29 00:00:00 Completed [facility] COVID-19 (SARS-COV-2) vaccine, unspecified COVID-19 (SARS-COV-2) vaccine, unspecified 2020-09-29 00:00:00 Completed [facility] SARS-COV-2 COVID-19 UNSPECIFIED VACCINE 2020-08-29 00:00:00 Completed [facility] SARS-COV-2 COVID-19 UNSPECIFIED VACCINE 2020-08-29 00:00:00 Completed [facility] SARS-COV-2 COVID-19 UNSPECIFIED VACCINE 2020-08-29 00:00:00 Completed [facility] SARS-COV-2 COVID-19 UNSPECIFIED VACCINE 2020-08-29 00:00:00 Completed [facility] SARS-COV-2 COVID-19 UNSPECIFIED VACCINE 2020-08-29 00:00:00 Completed [facility] SARS-COV-2 COVID-19 UNSPECIFIED VACCINE 2020-08-29 00:00:00 Completed [facility] SARS-COV-2 COVID-19 UNSPECIFIED VACCINE 2020-08-29 00:00:00 Completed [facility] SARS-COV-2 COVID-19 UNSPECIFIED VACCINE 2020-08-29 00:00:00 Completed [facility] SARS-COV-2 COVID-19 UNSPECIFIED VACCINE 2020-08-29 00:00:00 Completed [facility] SARS-COV-2 COVID-19 UNSPECIFIED VACCINE 2020-08-29 00:00:00 Completed [facility] SARS-COV-2 COVID-19 UNSPECIFIED VACCINE 2020-08-29 00:00:00 Completed [facility] SARS-COV-2 COVID-19 UNSPECIFIED VACCINE 2020-08-29 00:00:00 Completed [facility] SARS-COV-2 COVID-19 UNSPECIFIED VACCINE 2020-08-29 00:00:00 Completed [facility] SARS-COV-2 COVID-19 UNSPECIFIED VACCINE 2020-08-29 00:00:00 Completed [facility] SARS-COV-2 COVID-19 UNSPECIFIED VACCINE 2020-08-29 00:00:00 Completed [facility] SARS-COV-2 COVID-19 UNSPECIFIED VACCINE 2020-08-29 00:00:00 Completed [facility] SARS-COV-2 COVID-19 UNSPECIFIED VACCINE 2020-08-29 00:00:00 Completed [facility] SARS-COV-2 COVID-19 UNSPECIFIED VACCINE 2020-08-29 00:00:00 Completed [facility] SARS-COV-2 COVID-19 UNSPECIFIED VACCINE 2020-08-29 00:00:00 Completed [facility] SARS-COV-2 COVID-19 UNSPECIFIED VACCINE 2020-08-29 00:00:00 Completed [facility] SARS-COV-2 COVID-19 UNSPECIFIED VACCINE 2020-08-29 00:00:00 Completed [facility] SARS-COV-2 COVID-19 UNSPECIFIED VACCINE 2020-08-29 00:00:00 Completed [facility] SARS-COV-2 COVID-19 UNSPECIFIED VACCINE 2020-08-29 00:00:00 Completed [facility] SARS-COV-2 COVID-19 UNSPECIFIED VACCINE 2020-08-29 00:00:00 Completed [facility] SARS-COV-2 COVID-19 UNSPECIFIED VACCINE 2020-08-29 00:00:00 Completed [facility] SARS-COV-2 COVID-19 UNSPECIFIED VACCINE 2020-08-29 00:00:00 Completed [facility] SARS-COV-2 COVID-19 UNSPECIFIED VACCINE 2020-08-29 00:00:00 Completed [facility] SARS-COV-2 COVID-19 UNSPECIFIED VACCINE 2020-08-29 00:00:00 Completed [facility] SARS-COV-2 COVID-19 UNSPECIFIED VACCINE 2020-08-29 00:00:00 Completed [facility] SARS-COV-2 COVID-19 UNSPECIFIED VACCINE 2020-08-29 00:00:00 Completed [facility] SARS-COV-2 COVID-19 UNSPECIFIED VACCINE 2020-08-29 00:00:00 Completed [facility] SARS-COV-2 COVID-19 UNSPECIFIED VACCINE 2020-08-29 00:00:00 Completed [facility] SARS-COV-2 COVID-19 UNSPECIFIED VACCINE 2020-08-29 00:00:00 Completed [facility] SARS-COV-2 COVID-19 UNSPECIFIED VACCINE 2020-08-29 00:00:00 Completed [facility] SARS-COV-2 COVID-19 UNSPECIFIED VACCINE 2020-08-29 00:00:00 Completed [facility] SARS-COV-2 COVID-19 UNSPECIFIED VACCINE 2020-08-29 00:00:00 Completed [facility] SARS-COV-2 COVID-19 UNSPECIFIED VACCINE 2020-08-29 00:00:00 Completed [facility] SARS-COV-2 COVID-19 UNSPECIFIED VACCINE 2020-08-29 00:00:00 Completed [facility] SARS-COV-2 COVID-19 UNSPECIFIED VACCINE 2020-08-29 00:00:00 Completed [facility] SARS-COV-2 COVID-19 UNSPECIFIED VACCINE 2020-08-29 00:00:00 Completed [facility] SARS-COV-2 COVID-19 UNSPECIFIED VACCINE 2020-08-29 00:00:00 Completed [facility] SARS-COV-2 COVID-19 UNSPECIFIED VACCINE 2020-08-29 00:00:00 Completed [facility] SARS-COV-2 COVID-19 UNSPECIFIED VACCINE 2020-08-29 00:00:00 Completed [facility] SARS-COV-2 COVID-19 UNSPECIFIED VACCINE 2020-08-29 00:00:00 Completed [facility] SARS-COV-2 COVID-19 UNSPECIFIED VACCINE 2020-08-29 00:00:00 Completed [facility] SARS-COV-2 COVID-19 UNSPECIFIED VACCINE 2020-08-29 00:00:00 Completed [facility] SARS-COV-2 COVID-19 UNSPECIFIED VACCINE 2020-08-29 00:00:00 Completed [facility] SARS-COV-2 COVID-19 UNSPECIFIED VACCINE 2020-08-29 00:00:00 Completed [facility] SARS-COV-2 COVID-19 UNSPECIFIED VACCINE 2020-08-29 00:00:00 Completed [facility] SARS-COV-2 COVID-19 UNSPECIFIED VACCINE 2020-08-29 00:00:00 Completed [facility] SARS-COV-2 COVID-19 UNSPECIFIED VACCINE 2020-08-29 00:00:00 Completed [facility] SARS-COV-2 COVID-19 UNSPECIFIED VACCINE 2020-08-29 00:00:00 Completed [facility] SARS-COV-2 COVID-19 UNSPECIFIED VACCINE 2020-08-29 00:00:00 Completed [facility] SARS-COV-2 COVID-19 UNSPECIFIED VACCINE 2020-08-29 00:00:00 Completed [facility] SARS-COV-2 COVID-19 UNSPECIFIED VACCINE 2020-08-29 00:00:00 Completed [facility] SARS-COV-2 COVID-19 UNSPECIFIED VACCINE 2020-08-29 00:00:00 Completed [facility] SARS-COV-2 COVID-19 UNSPECIFIED VACCINE 2020-08-29 00:00:00 Completed [facility] SARS-COV-2 COVID-19 UNSPECIFIED VACCINE 2020-08-29 00:00:00 Completed [facility] SARS-COV-2 COVID-19 UNSPECIFIED VACCINE 2020-08-29 00:00:00 Completed [facility] SARS-COV-2 COVID-19 UNSPECIFIED VACCINE 2020-08-29 00:00:00 Completed [facility] SARS-COV-2 COVID-19 UNSPECIFIED VACCINE 2020-08-29 00:00:00 Completed [facility] SARS-COV-2 COVID-19 UNSPECIFIED VACCINE 2020-08-29 00:00:00 Completed [facility] SARS-COV-2 COVID-19 UNSPECIFIED VACCINE 2020-08-29 00:00:00 Completed [facility] SARS-COV-2 COVID-19 UNSPECIFIED VACCINE 2020-08-29 00:00:00 Completed [facility] SARS-COV-2 COVID-19 UNSPECIFIED VACCINE 2020-08-29 00:00:00 Completed [facility] SARS-COV-2 COVID-19 UNSPECIFIED VACCINE 2020-08-29 00:00:00 Completed [facility] SARS-COV-2 COVID-19 UNSPECIFIED VACCINE 2020-08-29 00:00:00 Completed [facility] SARS-COV-2 COVID-19 UNSPECIFIED VACCINE 2020-08-29 00:00:00 Completed [facility] SARS-COV-2 COVID-19 VACCINE - (MODERNA) 2020-08-29 00:00:00 Completed [facility] SARS-COV-2 COVID-19 UNSPECIFIED VACCINE 2020-08-29 00:00:00 Completed [facility] SARS-COV-2 COVID-19 VACCINE - (MODERNA) 2020-08-29 00:00:00 Completed [facility] SARS-COV-2 COVID-19 UNSPECIFIED VACCINE 2020-08-29 00:00:00 Completed [facility] SARS-COV-2 COVID-19 VACCINE - (MODERNA) 2020-08-29 00:00:00 Completed [facility] SARS-COV-2 COVID-19 VACCINE - (MODERNA) 2020-08-29 00:00:00 Completed [facility] SARS-COV-2 COVID-19 UNSPECIFIED VACCINE 2020-08-29 00:00:00 Completed [facility] SARS-COV-2 COVID-19 VACCINE - (MODERNA) 2020-08-29 00:00:00 Completed [facility] SARS-COV-2 COVID-19 UNSPECIFIED VACCINE 2020-08-29 00:00:00 Completed [facility] SARS-COV-2 COVID-19 VACCINE - (MODERNA) 2020-08-29 00:00:00 Completed [facility] SARS-COV-2 COVID-19 UNSPECIFIED VACCINE 2020-08-29 00:00:00 Completed [facility] SARS-COV-2 COVID-19 VACCINE - (MODERNA) 2020-08-29 00:00:00 Completed [facility] SARS-COV-2 COVID-19 UNSPECIFIED VACCINE 2020-08-29 00:00:00 Completed [facility] SARS-COV-2 COVID-19 VACCINE - (MODERNA) 2020-08-29 00:00:00 Completed [facility] SARS-COV-2 COVID-19 UNSPECIFIED VACCINE 2020-08-29 00:00:00 Completed [facility] SARS-COV-2 COVID-19 VACCINE - (MODERNA) 2020-08-29 00:00:00 Completed [facility] SARS-COV-2 COVID-19 UNSPECIFIED VACCINE 2020-08-29 00:00:00 Completed [facility] SARS-COV-2 COVID-19 VACCINE - (MODERNA) 2020-08-29 00:00:00 Completed [facility] SARS-COV-2 COVID-19 UNSPECIFIED VACCINE 2020-08-29 00:00:00 Completed [facility] SARS-COV-2 COVID-19 VACCINE - (MODERNA) 2020-08-29 00:00:00 Completed [facility] SARS-COV-2 COVID-19 UNSPECIFIED VACCINE 2020-08-29 00:00:00 Completed [facility] SARS-COV-2 COVID-19 VACCINE - (MODERNA) 2020-08-29 00:00:00 Completed [facility] SARS-COV-2 COVID-19 UNSPECIFIED VACCINE 2020-08-29 00:00:00 Completed [facility] SARS-COV-2 COVID-19 VACCINE - (MODERNA) 2020-08-29 00:00:00 Completed [facility] SARS-COV-2 COVID-19 UNSPECIFIED VACCINE 2020-08-29 00:00:00 Completed [facility] SARS-COV-2 (COVID-19) vaccine, UNSPECIFIED SARS-COV-2 (COVID-19) vaccine, UNSPECIFIED 2020-08-29 00:00:00 Completed [facility] SARS-COV-2 COVID-19 VACCINE - (MODERNA) 2020-08-29 00:00:00 Completed [facility] SARS-COV-2 COVID-19 UNSPECIFIED VACCINE 2020-08-29 00:00:00 Completed [facility] SARS-COV-2 COVID-19 VACCINE - (MODERNA) 2020-08-29 00:00:00 Completed [facility] SARS-COV-2 COVID-19 UNSPECIFIED VACCINE 2020-08-29 00:00:00 Completed [facility] SARS-COV-2 COVID-19 VACCINE - (MODERNA) 2020-08-29 00:00:00 Completed [facility] SARS-COV-2 COVID-19 UNSPECIFIED VACCINE 2020-08-29 00:00:00 Completed [facility] SARS-COV-2 COVID-19 VACCINE - (MODERNA) 2020-08-29 00:00:00 Completed [facility] SARS-COV-2 COVID-19 UNSPECIFIED VACCINE 2020-08-29 00:00:00 Completed [facility] SARS-COV-2 COVID-19 VACCINE - (MODERNA) 2020-08-29 00:00:00 Completed [facility] SARS-COV-2 COVID-19 UNSPECIFIED VACCINE 2020-08-29 00:00:00 Completed [facility] SARS-COV-2 (COVID-19) vaccine, UNSPECIFIED SARS-COV-2 (COVID-19) vaccine, UNSPECIFIED 2020-08-29 00:00:00 Completed [facility] SARS-COV-2 COVID-19 VACCINE - (MODERNA) 2020-08-29 00:00:00 Completed [facility] SARS-COV-2 COVID-19 UNSPECIFIED VACCINE 2020-08-29 00:00:00 Completed [facility] SARS-COV-2 COVID-19 VACCINE - (MODERNA) 2020-08-29 00:00:00 Completed [facility] SARS-COV-2 COVID-19 UNSPECIFIED VACCINE 2020-08-29 00:00:00 Completed [facility] SARS-COV-2 COVID-19 VACCINE - (MODERNA) 2020-08-29 00:00:00 Completed [facility] SARS-COV-2 COVID-19 UNSPECIFIED VACCINE 2020-08-29 00:00:00 Completed [facility] SARS-COV-2 COVID-19 VACCINE - (MODERNA) 2020-08-29 00:00:00 Completed [facility] SARS-COV-2 COVID-19 UNSPECIFIED VACCINE 2020-08-29 00:00:00 Completed [facility] SARS-COV-2 COVID-19 VACCINE - (MODERNA) 2020-08-29 00:00:00 Completed [facility] SARS-COV-2 COVID-19 UNSPECIFIED VACCINE 2020-08-29 00:00:00 Completed [facility] COVID-19 (SARS-COV-2) vaccine, unspecified COVID-19 (SARS-COV-2) vaccine, unspecified 2020-08-29 00:00:00 Completed [facility] SARS-COV-2 COVID-19 VACCINE - (MODERNA) 2020-08-29 00:00:00 Completed [facility] SARS-COV-2 COVID-19 UNSPECIFIED VACCINE 2020-08-29 00:00:00 Completed [facility] SARS-COV-2 COVID-19 VACCINE - (MODERNA) 2020-08-29 00:00:00 Completed [facility] SARS-COV-2 COVID-19 UNSPECIFIED VACCINE 2020-08-29 00:00:00 Completed [facility] SARS-COV-2 COVID-19 VACCINE - (MODERNA) 2020-08-29 00:00:00 Completed [facility] SARS-COV-2 COVID-19 UNSPECIFIED VACCINE 2020-08-29 00:00:00 Completed [facility] SARS-COV-2 COVID-19 VACCINE - (MODERNA) 2020-08-29 00:00:00 Completed [facility] SARS-COV-2 COVID-19 UNSPECIFIED VACCINE 2020-08-29 00:00:00 Completed [facility] SARS-COV-2 COVID-19 VACCINE - (MODERNA) 2020-08-29 00:00:00 Completed [facility] SARS-COV-2 COVID-19 UNSPECIFIED VACCINE 2020-08-29 00:00:00 Completed [facility] COVID-19 (SARS-COV-2) vaccine, unspecified COVID-19 (SARS-COV-2) vaccine, unspecified 2020-08-29 00:00:00 Completed [facility] SARS-COV-2 COVID-19 VACCINE - (MODERNA) 2020-08-29 00:00:00 Completed [facility] SARS-COV-2 COVID-19 UNSPECIFIED VACCINE 2020-08-29 00:00:00 Completed [facility] SARS-COV-2 COVID-19 VACCINE - (MODERNA) 2020-08-29 00:00:00 Completed [facility] SARS-COV-2 COVID-19 UNSPECIFIED VACCINE 2020-08-29 00:00:00 Completed [facility] SARS-COV-2 COVID-19 VACCINE - (MODERNA) 2020-08-29 00:00:00 Completed [facility] SARS-COV-2 COVID-19 UNSPECIFIED VACCINE 2020-08-29 00:00:00 Completed [facility] SARS-COV-2 COVID-19 VACCINE - (MODERNA) 2020-08-29 00:00:00 Completed [facility] SARS-COV-2 COVID-19 UNSPECIFIED VACCINE 2020-08-29 00:00:00 Completed [facility] SARS-COV-2 COVID-19 VACCINE - (MODERNA) 2020-08-29 00:00:00 Completed [facility] SARS-COV-2 COVID-19 UNSPECIFIED VACCINE 2020-08-29 00:00:00 Completed [facility] SARS-COV-2 COVID-19 VACCINE - (MODERNA) 2020-08-29 00:00:00 Completed [facility] SARS-COV-2 COVID-19 UNSPECIFIED VACCINE 2020-08-29 00:00:00 Completed [facility] SARS-COV-2 COVID-19 VACCINE - (MODERNA) 2020-08-29 00:00:00 Completed [facility] SARS-COV-2 COVID-19 UNSPECIFIED VACCINE 2020-08-29 00:00:00 Completed [facility] SARS-COV-2 COVID-19 VACCINE - (MODERNA) 2020-08-29 00:00:00 Completed [facility] SARS-COV-2 COVID-19 UNSPECIFIED VACCINE 2020-08-29 00:00:00 Completed [facility] SARS-COV-2 COVID-19 VACCINE - (MODERNA) 2020-08-29 00:00:00 Completed [facility] SARS-COV-2 COVID-19 UNSPECIFIED VACCINE 2020-08-29 00:00:00 Completed [facility] SARS-COV-2 COVID-19 VACCINE - (MODERNA) 2020-08-29 00:00:00 Completed [facility] SARS-COV-2 COVID-19 UNSPECIFIED VACCINE 2020-08-29 00:00:00 Completed [facility] SARS-COV-2 COVID-19 VACCINE - (MODERNA) 2020-08-29 00:00:00 Completed [facility] SARS-COV-2 COVID-19 UNSPECIFIED VACCINE 2020-08-29 00:00:00 Completed [facility] SARS-COV-2 COVID-19 VACCINE - (MODERNA) 2020-08-29 00:00:00 Completed [facility] SARS-COV-2 COVID-19 UNSPECIFIED VACCINE 2020-08-29 00:00:00 Completed [facility] SARS-COV-2 COVID-19 VACCINE - (MODERNA) 2020-08-29 00:00:00 Completed [facility] SARS-COV-2 COVID-19 UNSPECIFIED VACCINE 2020-08-29 00:00:00 Completed [facility] SARS-COV-2 COVID-19 VACCINE - (MODERNA) 2020-08-29 00:00:00 Completed [facility] SARS-COV-2 COVID-19 UNSPECIFIED VACCINE 2020-08-29 00:00:00 Completed [facility] SARS-COV-2 COVID-19 VACCINE - (MODERNA) 2020-08-29 00:00:00 Completed [facility] SARS-COV-2 COVID-19 UNSPECIFIED VACCINE 2020-08-29 00:00:00 Completed [facility] SARS-COV-2 COVID-19 VACCINE - (MODERNA) 2020-08-29 00:00:00 Completed [facility] SARS-COV-2 COVID-19 UNSPECIFIED VACCINE 2020-08-29 00:00:00 Completed [facility] SARS-COV-2 COVID-19 VACCINE - (MODERNA) 2020-08-29 00:00:00 Completed [facility] SARS-COV-2 COVID-19 UNSPECIFIED VACCINE 2020-08-29 00:00:00 Completed [facility] SARS-COV-2 COVID-19 VACCINE - (MODERNA) 2020-08-29 00:00:00 Completed [facility] SARS-COV-2 COVID-19 UNSPECIFIED VACCINE 2020-08-29 00:00:00 Completed [facility] SARS-COV-2 COVID-19 VACCINE - (MODERNA) 2020-08-29 00:00:00 Completed [facility] SARS-COV-2 COVID-19 UNSPECIFIED VACCINE 2020-08-29 00:00:00 Completed [facility] SARS-COV-2 COVID-19 VACCINE - (MODERNA) 2020-08-29 00:00:00 Completed [facility] SARS-COV-2 COVID-19 UNSPECIFIED VACCINE 2020-08-29 00:00:00 Completed [facility] SARS-COV-2 COVID-19 VACCINE - (MODERNA) 2020-08-29 00:00:00 Completed [facility] SARS-COV-2 COVID-19 UNSPECIFIED VACCINE 2020-08-29 00:00:00 Completed [facility] SARS-COV-2 COVID-19 VACCINE - (MODERNA) 2020-08-29 00:00:00 Completed [facility] SARS-COV-2 COVID-19 UNSPECIFIED VACCINE 2020-08-29 00:00:00 Completed [facility] SARS-COV-2 COVID-19 VACCINE - (MODERNA) 2020-08-29 00:00:00 Completed [facility] SARS-COV-2 COVID-19 UNSPECIFIED VACCINE 2020-08-29 00:00:00 Completed [facility] SARS-COV-2 COVID-19 VACCINE - (MODERNA) 2020-08-29 00:00:00 Completed [facility] SARS-COV-2 COVID-19 UNSPECIFIED VACCINE 2020-08-29 00:00:00 Completed [facility] SARS-COV-2 COVID-19 VACCINE - (MODERNA) 2020-08-29 00:00:00 Completed [facility] SARS-COV-2 COVID-19 UNSPECIFIED VACCINE 2020-08-29 00:00:00 Completed [facility] SARS-COV-2 COVID-19 VACCINE - (MODERNA) 2020-08-29 00:00:00 Completed [facility] SARS-COV-2 COVID-19 UNSPECIFIED VACCINE 2020-08-29 00:00:00 Completed [facility] SARS-COV-2 COVID-19 VACCINE - (MODERNA) 2020-08-29 00:00:00 Completed [facility] SARS-COV-2 COVID-19 UNSPECIFIED VACCINE 2020-08-29 00:00:00 Completed [facility] SARS-COV-2 COVID-19 VACCINE - (MODERNA) 2020-08-29 00:00:00 Completed [facility] SARS-COV-2 COVID-19 UNSPECIFIED VACCINE 2020-08-29 00:00:00 Completed [facility] SARS-COV-2 COVID-19 VACCINE - (MODERNA) 2020-08-29 00:00:00 Completed [facility] SARS-COV-2 COVID-19 UNSPECIFIED VACCINE 2020-08-29 00:00:00 Completed [facility] SARS-COV-2 COVID-19 VACCINE - (MODERNA) 2020-08-29 00:00:00 Completed [facility] SARS-COV-2 COVID-19 UNSPECIFIED VACCINE 2020-08-29 00:00:00 Completed [facility] SARS-COV-2 COVID-19 VACCINE - (MODERNA) 2020-08-29 00:00:00 Completed [facility] SARS-COV-2 COVID-19 UNSPECIFIED VACCINE 2020-08-29 00:00:00 Completed [facility] SARS-COV-2 COVID-19 VACCINE - (MODERNA) 2020-08-29 00:00:00 Completed [facility] SARS-COV-2 COVID-19 UNSPECIFIED VACCINE 2020-08-29 00:00:00 Completed [facility] SARS-COV-2 COVID-19 VACCINE - (MODERNA) 2020-08-29 00:00:00 Completed [facility] SARS-COV-2 COVID-19 UNSPECIFIED VACCINE 2020-08-29 00:00:00 Completed SARS-COV-2 COVID-19 VACCINE - (MODERNA) 2020-08-29 00:00:00 Completed [facility] SARS-COV-2 COVID-19 UNSPECIFIED VACCINE 2020-08-29 00:00:00 Completed SARS-COV-2 COVID-19 VACCINE - (MODERNA) 2020-08-29 00:00:00 Completed [facility] Influenza, injectable, MDCK, preservative free, quadrivalent Influenza, injectable, MDCK, preservative free, quadrivalent 2020-03-27 12:37:23 Completed [facility] Influenza, injectable, MDCK, preservative free, quadrivalent Influenza, injectable, MDCK, preservative free, quadrivalent 2020-03-27 12:37:23 Completed [facility] Influenza, injectable, MDCK, preservative free, quadrivalent Influenza, injectable, MDCK, preservative free, quadrivalent 2020-03-27 12:37:23 Completed [facility] Influenza, injectable, MDCK, preservative free, quadrivalent Influenza, injectable, MDCK, preservative free, quadrivalent 2020-03-27 12:37:23 Completed [facility] Influenza, injectable, MDCK, preservative free, quadrivalent Influenza, injectable, MDCK, preservative free, quadrivalent 2020-03-27 12:37:23 Completed [facility] Influenza Virus Vaccine 2020-03-27 00:00:00 Completed [facility] Influenza Virus Vaccine 2020-03-27 00:00:00 Completed [facility] Influenza Virus Vaccine 2020-03-27 00:00:00 Completed [facility] Influenza Virus Vaccine 2020-03-27 00:00:00 Completed [facility] Influenza Virus Vaccine 2020-03-27 00:00:00 Completed [facility] Influenza Virus Vaccine 2020-03-27 00:00:00 Completed [facility] Influenza Virus Vaccine 2020-03-27 00:00:00 Completed [facility] Influenza Virus Vaccine 2020-03-27 00:00:00 Completed [facility] Influenza Virus Vaccine 2020-03-27 00:00:00 Completed [facility] Influenza Virus Vaccine 2020-03-27 00:00:00 Completed [facility] Influenza Virus Vaccine 2020-03-27 00:00:00 Completed [facility] Influenza Virus Vaccine 2020-03-27 00:00:00 Completed [facility] Influenza Virus Vaccine 2020-03-27 00:00:00 Completed [facility] Influenza Virus Vaccine 2020-03-27 00:00:00 Completed [facility] Influenza Virus Vaccine 2020-03-27 00:00:00 Completed [facility] Influenza Virus Vaccine 2020-03-27 00:00:00 Completed [facility] Influenza Virus Vaccine 2020-03-27 00:00:00 Completed [facility] Influenza Virus Vaccine 2020-03-27 00:00:00 Completed [facility] Influenza Virus Vaccine 2020-03-27 00:00:00 Completed [facility] Influenza Virus Vaccine 2020-03-27 00:00:00 Completed [facility] Influenza Virus Vaccine 2020-03-27 00:00:00 Completed [facility] Influenza Virus Vaccine 2020-03-27 00:00:00 Completed [facility] Influenza Virus Vaccine 2020-03-27 00:00:00 Completed [facility] Influenza Virus Vaccine 2020-03-27 00:00:00 Completed [facility] Influenza Virus Vaccine 2020-03-27 00:00:00 Completed [facility] Influenza Virus Vaccine 2020-03-27 00:00:00 Completed [facility] Influenza Virus Vaccine 2020-03-27 00:00:00 Completed [facility] Influenza Virus Vaccine 2020-03-27 00:00:00 Completed [facility] Influenza Virus Vaccine 2020-03-27 00:00:00 Completed [facility] Influenza Virus Vaccine 2020-03-27 00:00:00 Completed [facility] Influenza Virus Vaccine 2020-03-27 00:00:00 Completed [facility] Influenza Virus Vaccine 2020-03-27 00:00:00 Completed [facility] Influenza Virus Vaccine 2020-03-27 00:00:00 Completed [facility] Influenza Virus Vaccine 2020-03-27 00:00:00 Completed [facility] Influenza Virus Vaccine 2020-03-27 00:00:00 Completed [facility] Influenza Virus Vaccine 2020-03-27 00:00:00 Completed [facility] Influenza Virus Vaccine 2020-03-27 00:00:00 Completed [facility] Influenza Virus Vaccine 2020-03-27 00:00:00 Completed [facility] Influenza Virus Vaccine 2020-03-27 00:00:00 Completed [facility] Influenza Virus Vaccine 2020-03-27 00:00:00 Completed [facility] Influenza Virus Vaccine 2020-03-27 00:00:00 Completed [facility] Influenza Virus Vaccine 2020-03-27 00:00:00 Completed [facility] Influenza Virus Vaccine 2020-03-27 00:00:00 Completed [facility] Influenza Virus Vaccine 2020-03-27 00:00:00 Completed [facility] Influenza Virus Vaccine 2020-03-27 00:00:00 Completed [facility] Influenza Virus Vaccine 2020-03-27 00:00:00 Completed [facility] Influenza Virus Vaccine 2020-03-27 00:00:00 Completed [facility] Influenza Virus Vaccine 2020-03-27 00:00:00 Completed [facility] Influenza Virus Vaccine 2020-03-27 00:00:00 Completed [facility] Influenza Virus Vaccine 2020-03-27 00:00:00 Completed [facility] Influenza Virus Vaccine 2020-03-27 00:00:00 Completed [facility] Influenza Virus Vaccine 2020-03-27 00:00:00 Completed [facility] Influenza Virus Vaccine 2020-03-27 00:00:00 Completed [facility] Influenza Virus Vaccine 2020-03-27 00:00:00 Completed [facility] Influenza Virus Vaccine 2020-03-27 00:00:00 Completed [facility] Influenza Virus Vaccine 2020-03-27 00:00:00 Completed [facility] Influenza Virus Vaccine 2020-03-27 00:00:00 Completed [facility] Influenza Virus Vaccine 2020-03-27 00:00:00 Completed [facility] Influenza Virus Vaccine 2020-03-27 00:00:00 Completed [facility] Influenza Virus Vaccine 2020-03-27 00:00:00 Completed [facility] Influenza Virus Vaccine 2020-03-27 00:00:00 Completed [facility] Influenza Virus Vaccine 2020-03-27 00:00:00 Completed [facility] Influenza Virus Vaccine 2020-03-27 00:00:00 Completed [facility] Influenza Virus Vaccine 2020-03-27 00:00:00 Completed [facility] Influenza Virus Vaccine 2020-03-27 00:00:00 Completed [facility] Influenza Virus Vaccine 2020-03-27 00:00:00 Completed [facility] Influenza Virus Vaccine 2020-03-27 00:00:00 Completed [facility] Influenza Virus Vaccine 2020-03-27 00:00:00 Completed [facility] Influenza Virus Vaccine 2020-03-27 00:00:00 Completed [facility] Influenza Virus Vaccine 2020-03-27 00:00:00 Completed [facility] Influenza Virus Vaccine 2020-03-27 00:00:00 Completed [facility] Influenza Virus Vaccine 2020-03-27 00:00:00 Completed [facility] Influenza Virus Vaccine 2020-03-27 00:00:00 Completed [facility] Influenza Virus Vaccine 2020-03-27 00:00:00 Completed [facility] Influenza Virus Vaccine 2020-03-27 00:00:00 Completed [facility] Influenza Virus Vaccine 2020-03-27 00:00:00 Completed [facility] Influenza Virus Vaccine 2020-03-27 00:00:00 Completed [facility] Influenza Virus Vaccine 2020-03-27 00:00:00 Completed [facility] Influenza Virus Vaccine 2020-03-27 00:00:00 Completed [facility] Influenza Virus Vaccine 2020-03-27 00:00:00 Completed [facility] Influenza Virus Vaccine 2020-03-27 00:00:00 Completed [facility] Influenza Virus Vaccine 2020-03-27 00:00:00 Completed [facility] Influenza Virus Vaccine 2020-03-27 00:00:00 Completed [facility] Influenza Virus Vaccine 2020-03-27 00:00:00 Completed [facility] Influenza Virus Vaccine 2020-03-27 00:00:00 Completed [facility] Influenza Virus Vaccine 2020-03-27 00:00:00 Completed [facility] Influenza Virus Vaccine 2020-03-27 00:00:00 Completed [facility] Influenza Virus Vaccine 2020-03-27 00:00:00 Completed [facility] Influenza Virus Vaccine 2020-03-27 00:00:00 Completed [facility] Influenza Virus Vaccine 2020-03-27 00:00:00 Completed [facility] Influenza Virus Vaccine 2020-03-27 00:00:00 Completed [facility] Influenza Virus Vaccine 2020-03-27 00:00:00 Completed [facility] Influenza Virus Vaccine 2020-03-27 00:00:00 Completed [facility] Influenza Virus Vaccine 2020-03-27 00:00:00 Completed [facility] Influenza Virus Vaccine 2020-03-27 00:00:00 Completed [facility] Influenza Virus Vaccine 2020-03-27 00:00:00 Completed [facility] Influenza Virus Vaccine 2020-03-27 00:00:00 Completed [facility] Influenza Virus Vaccine 2020-03-27 00:00:00 Completed [facility] Influenza Virus Vaccine 2020-03-27 00:00:00 Completed [facility] Influenza Virus Vaccine 2020-03-27 00:00:00 Completed [facility] Influenza Virus Vaccine 2020-03-27 00:00:00 Completed [facility] Influenza Virus Vaccine 2020-03-27 00:00:00 Completed [facility] Influenza Virus Vaccine 2020-03-27 00:00:00 Completed [facility] Influenza Virus Vaccine 2020-03-27 00:00:00 Completed [facility] Influenza Virus Vaccine 2020-03-27 00:00:00 Completed [facility] Influenza Virus Vaccine 2020-03-27 00:00:00 Completed [facility] Influenza Virus Vaccine 2020-03-27 00:00:00 Completed [facility] Influenza Virus Vaccine 2020-03-27 00:00:00 Completed [facility] Influenza Virus Vaccine 2020-03-27 00:00:00 Completed [facility] Influenza Virus Vaccine 2020-03-27 00:00:00 Completed [facility] Influenza Virus Vaccine 2020-03-27 00:00:00 Completed [facility] Influenza Virus Vaccine 2020-03-27 00:00:00 Completed [facility] Influenza Virus Vaccine 2020-03-27 00:00:00 Completed [facility] Influenza Virus Vaccine 2020-03-27 00:00:00 Completed [facility] Influenza Virus Vaccine 2020-03-27 00:00:00 Completed [facility] Influenza Virus Vaccine 2020-03-27 00:00:00 Completed [facility] Influenza Virus Vaccine 2020-03-27 00:00:00 Completed [facility] Influenza Virus Vaccine 2020-03-27 00:00:00 Completed [facility] Influenza Virus Vaccine 2020-03-27 00:00:00 Completed [facility] Influenza Virus Vaccine 2020-03-27 00:00:00 Completed [facility] Influenza Virus Vaccine 2020-03-27 00:00:00 Completed [facility] Influenza Virus Vaccine 2020-03-27 00:00:00 Completed [facility] Influenza Virus Vaccine 2020-03-27 00:00:00 Completed [facility] Influenza Virus Vaccine 2020-03-27 00:00:00 Completed [facility] Influenza Virus Vaccine 2020-03-27 00:00:00 Completed [facility] Influenza Virus Vaccine 2020-03-27 00:00:00 Completed [facility] Influenza Virus Vaccine 2020-03-27 00:00:00 Completed [facility] Influenza Virus Vaccine 2020-03-27 00:00:00 Completed [facility] Influenza Virus Vaccine 2020-03-27 00:00:00 Completed [facility] Influenza High Dose 2019-04-15 00:00:00 Completed [facility] Influenza Virus Vaccine 2019-04-15 00:00:00 Completed [facility] Influenza High Dose 2019-04-15 00:00:00 Completed [facility] Influenza Virus Vaccine 2019-04-15 00:00:00 Completed [facility] Influenza High Dose 2019-04-15 00:00:00 Completed [facility] Influenza Virus Vaccine 2019-04-15 00:00:00 Completed [facility] Influenza High Dose 2019-04-15 00:00:00 Completed [facility] Influenza Virus Vaccine 2019-04-15 00:00:00 Completed [facility] Influenza High Dose 2019-04-15 00:00:00 Completed [facility] Influenza Virus Vaccine 2019-04-15 00:00:00 Completed [facility] Influenza High Dose 2019-04-15 00:00:00 Completed [facility] Influenza Virus Vaccine 2019-04-15 00:00:00 Completed [facility] Influenza High Dose 2019-04-15 00:00:00 Completed [facility] Influenza Virus Vaccine 2019-04-15 00:00:00 Completed [facility] Influenza High Dose 2019-04-15 00:00:00 Completed [facility] Influenza Virus Vaccine 2019-04-15 00:00:00 Completed [facility] Influenza High Dose 2019-04-15 00:00:00 Completed [facility] Influenza Virus Vaccine 2019-04-15 00:00:00 Completed [facility] Influenza High Dose 2019-04-15 00:00:00 Completed [facility] Influenza Virus Vaccine 2019-04-15 00:00:00 Completed [facility] Influenza High Dose 2019-04-15 00:00:00 Completed [facility] Influenza Virus Vaccine 2019-04-15 00:00:00 Completed [facility] Influenza High Dose 2019-04-15 00:00:00 Completed [facility] Influenza Virus Vaccine 2019-04-15 00:00:00 Completed [facility] Influenza High Dose 2019-04-15 00:00:00 Completed [facility] Influenza Virus Vaccine 2019-04-15 00:00:00 Completed [facility] Influenza High Dose 2019-04-15 00:00:00 Completed [facility] Influenza Virus Vaccine 2019-04-15 00:00:00 Completed [facility] Influenza High Dose 2019-04-15 00:00:00 Completed [facility] Influenza Virus Vaccine 2019-04-15 00:00:00 Completed [facility] Influenza High Dose 2019-04-15 00:00:00 Completed [facility] Influenza Virus Vaccine 2019-04-15 00:00:00 Completed [facility] Influenza High Dose 2019-04-15 00:00:00 Completed [facility] Influenza Virus Vaccine 2019-04-15 00:00:00 Completed [facility] Influenza High Dose 2019-04-15 00:00:00 Completed [facility] Influenza Virus Vaccine 2019-04-15 00:00:00 Completed [facility] Influenza High Dose 2019-04-15 00:00:00 Completed [facility] Influenza Virus Vaccine 2019-04-15 00:00:00 Completed [facility] Influenza High Dose 2019-04-15 00:00:00 Completed [facility] Influenza Virus Vaccine 2019-04-15 00:00:00 Completed [facility] Influenza High Dose 2019-04-15 00:00:00 Completed [facility] Influenza Virus Vaccine 2019-04-15 00:00:00 Completed [facility] Influenza High Dose 2019-04-15 00:00:00 Completed [facility] Influenza Virus Vaccine 2019-04-15 00:00:00 Completed [facility] Influenza High Dose 2019-04-15 00:00:00 Completed [facility] Influenza Virus Vaccine 2019-04-15 00:00:00 Completed [facility] Influenza High Dose 2019-04-15 00:00:00 Completed [facility] Influenza Virus Vaccine 2019-04-15 00:00:00 Completed [facility] Influenza High Dose 2019-04-15 00:00:00 Completed [facility] Influenza Virus Vaccine 2019-04-15 00:00:00 Completed [facility] Influenza High Dose 2019-04-15 00:00:00 Completed [facility] Influenza Virus Vaccine 2019-04-15 00:00:00 Completed [facility] Influenza High Dose 2019-04-15 00:00:00 Completed [facility] Influenza Virus Vaccine 2019-04-15 00:00:00 Completed [facility] Influenza High Dose 2019-04-15 00:00:00 Completed [facility] Influenza Virus Vaccine 2019-04-15 00:00:00 Completed [facility] Influenza High Dose 2019-04-15 00:00:00 Completed [facility] Influenza Virus Vaccine 2019-04-15 00:00:00 Completed [facility] Influenza High Dose 2019-04-15 00:00:00 Completed [facility] Influenza Virus Vaccine 2019-04-15 00:00:00 Completed [facility] Influenza High Dose 2019-04-15 00:00:00 Completed [facility] Influenza Virus Vaccine 2019-04-15 00:00:00 Completed [facility] Influenza High Dose 2019-04-15 00:00:00 Completed [facility] Influenza Virus Vaccine 2019-04-15 00:00:00 Completed [facility] Influenza High Dose 2019-04-15 00:00:00 Completed [facility] Influenza Virus Vaccine 2019-04-15 00:00:00 Completed [facility] Influenza High Dose 2019-04-15 00:00:00 Completed [facility] Influenza Virus Vaccine 2019-04-15 00:00:00 Completed [facility] Influenza High Dose 2019-04-15 00:00:00 Completed [facility] Influenza Virus Vaccine 2019-04-15 00:00:00 Completed [facility] Influenza High Dose 2019-04-15 00:00:00 Completed [facility] Influenza Virus Vaccine 2019-04-15 00:00:00 Completed [facility] Influenza High Dose 2019-04-15 00:00:00 Completed [facility] Influenza Virus Vaccine 2019-04-15 00:00:00 Completed [facility] Influenza High Dose 2019-04-15 00:00:00 Completed [facility] Influenza Virus Vaccine 2019-04-15 00:00:00 Completed [facility] Influenza High Dose 2019-04-15 00:00:00 Completed [facility] Influenza Virus Vaccine 2019-04-15 00:00:00 Completed [facility] Influenza High Dose 2019-04-15 00:00:00 Completed [facility] Influenza Virus Vaccine 2019-04-15 00:00:00 Completed [facility] Influenza High Dose 2019-04-15 00:00:00 Completed [facility] Influenza Virus Vaccine 2019-04-15 00:00:00 Completed [facility] Influenza High Dose 2019-04-15 00:00:00 Completed [facility] Influenza Virus Vaccine 2019-04-15 00:00:00 Completed [facility] Influenza High Dose 2019-04-15 00:00:00 Completed [facility] Influenza Virus Vaccine 2019-04-15 00:00:00 Completed [facility] Influenza High Dose 2019-04-15 00:00:00 Completed [facility] Influenza Virus Vaccine 2019-04-15 00:00:00 Completed [facility] Influenza High Dose 2019-04-15 00:00:00 Completed [facility] Influenza Virus Vaccine 2019-04-15 00:00:00 Completed [facility] Influenza High Dose 2019-04-15 00:00:00 Completed [facility] Influenza Virus Vaccine 2019-04-15 00:00:00 Completed [facility] Influenza High Dose 2019-04-15 00:00:00 Completed [facility] Influenza Virus Vaccine 2019-04-15 00:00:00 Completed [facility] Influenza High Dose 2019-04-15 00:00:00 Completed [facility] Influenza Virus Vaccine 2019-04-15 00:00:00 Completed [facility] Influenza High Dose 2019-04-15 00:00:00 Completed [facility] Influenza Virus Vaccine 2019-04-15 00:00:00 Completed [facility] Influenza High Dose 2019-04-15 00:00:00 Completed [facility] Influenza Virus Vaccine 2019-04-15 00:00:00 Completed [facility] Influenza High Dose 2019-04-15 00:00:00 Completed [facility] Influenza Virus Vaccine 2019-04-15 00:00:00 Completed [facility] Influenza High Dose 2019-04-15 00:00:00 Completed [facility] Influenza Virus Vaccine 2019-04-15 00:00:00 Completed [facility] Influenza High Dose 2019-04-15 00:00:00 Completed [facility] Influenza Virus Vaccine 2019-04-15 00:00:00 Completed [facility] Influenza High Dose 2019-04-15 00:00:00 Completed [facility] Influenza Virus Vaccine 2019-04-15 00:00:00 Completed [facility] Influenza High Dose 2019-04-15 00:00:00 Completed [facility] Influenza Virus Vaccine 2019-04-15 00:00:00 Completed [facility] Influenza High Dose 2019-04-15 00:00:00 Completed [facility] Influenza Virus Vaccine 2019-04-15 00:00:00 Completed [facility] Influenza High Dose 2019-04-15 00:00:00 Completed [facility] Influenza Virus Vaccine 2019-04-15 00:00:00 Completed [facility] Influenza High Dose 2019-04-15 00:00:00 Completed [facility] Influenza Virus Vaccine 2019-04-15 00:00:00 Completed [facility] Influenza High Dose 2019-04-15 00:00:00 Completed [facility] Influenza Virus Vaccine 2019-04-15 00:00:00 Completed [facility] Influenza High Dose 2019-04-15 00:00:00 Completed [facility] Influenza Virus Vaccine 2019-04-15 00:00:00 Completed [facility] Influenza High Dose 2019-04-15 00:00:00 Completed [facility] Influenza Virus Vaccine 2019-04-15 00:00:00 Completed [facility] Influenza High Dose 2019-04-15 00:00:00 Completed [facility] Influenza Virus Vaccine 2019-04-15 00:00:00 Completed [facility] Influenza High Dose 2019-04-15 00:00:00 Completed [facility] Influenza Virus Vaccine 2019-04-15 00:00:00 Completed [facility] Influenza High Dose 2019-04-15 00:00:00 Completed [facility] Influenza Virus Vaccine 2019-04-15 00:00:00 Completed [facility] Influenza High Dose 2019-04-15 00:00:00 Completed [facility] Influenza Virus Vaccine 2019-04-15 00:00:00 Completed [facility] Influenza High Dose 2019-04-15 00:00:00 Completed [facility] Influenza Virus Vaccine 2019-04-15 00:00:00 Completed [facility] Influenza High Dose 2019-04-15 00:00:00 Completed [facility] Influenza Virus Vaccine 2019-04-15 00:00:00 Completed [facility] Influenza High Dose 2019-04-15 00:00:00 Completed [facility] Influenza Virus Vaccine 2019-04-15 00:00:00 Completed [facility] Influenza High Dose 2019-04-15 00:00:00 Completed [facility] Influenza Virus Vaccine 2019-04-15 00:00:00 Completed [facility] Influenza High Dose 2019-04-15 00:00:00 Completed [facility] Influenza Virus Vaccine 2019-04-15 00:00:00 Completed [facility] Influenza High Dose 2019-04-15 00:00:00 Completed [facility] Influenza Virus Vaccine 2019-04-15 00:00:00 Completed [facility] Influenza High Dose 2019-04-15 00:00:00 Completed [facility] Influenza Virus Vaccine 2019-04-15 00:00:00 Completed [facility] Influenza High Dose 2019-04-15 00:00:00 Completed [facility] Influenza Virus Vaccine 2019-04-15 00:00:00 Completed [facility] Influenza High Dose 2019-04-15 00:00:00 Completed [facility] Influenza Virus Vaccine 2019-04-15 00:00:00 Completed [facility] Influenza High Dose 2019-04-15 00:00:00 Completed [facility] Influenza Virus Vaccine 2019-04-15 00:00:00 Completed [facility] Influenza High Dose 2019-04-15 00:00:00 Completed [facility] Influenza Virus Vaccine 2019-04-15 00:00:00 Completed [facility] Influenza High Dose 2019-04-15 00:00:00 Completed [facility] Influenza Virus Vaccine 2019-04-15 00:00:00 Completed [facility] Influenza High Dose 2019-04-15 00:00:00 Completed [facility] Influenza Virus Vaccine 2019-04-15 00:00:00 Completed [facility] Influenza High Dose 2019-04-15 00:00:00 Completed [facility] Influenza Virus Vaccine 2019-04-15 00:00:00 Completed [facility] Influenza High Dose 2019-04-15 00:00:00 Completed [facility] Influenza Virus Vaccine 2019-04-15 00:00:00 Completed [facility] Influenza High Dose 2019-04-15 00:00:00 Completed [facility] Influenza Virus Vaccine 2019-04-15 00:00:00 Completed [facility] Influenza High Dose 2019-04-15 00:00:00 Completed [facility] Influenza Virus Vaccine 2019-04-15 00:00:00 Completed [facility] Influenza High Dose 2019-04-15 00:00:00 Completed [facility] Influenza Virus Vaccine 2019-04-15 00:00:00 Completed [facility] Influenza High Dose 2019-04-15 00:00:00 Completed [facility] Influenza Virus Vaccine 2019-04-15 00:00:00 Completed [facility] Influenza High Dose 2019-04-15 00:00:00 Completed [facility] Influenza Virus Vaccine 2019-04-15 00:00:00 Completed [facility] Influenza High Dose 2019-04-15 00:00:00 Completed [facility] Influenza Virus Vaccine 2019-04-15 00:00:00 Completed [facility] Influenza High Dose 2019-04-15 00:00:00 Completed [facility] Influenza Virus Vaccine 2019-04-15 00:00:00 Completed [facility] Influenza High Dose 2019-04-15 00:00:00 Completed [facility] Influenza Virus Vaccine 2019-04-15 00:00:00 Completed [facility] Influenza High Dose 2019-04-15 00:00:00 Completed [facility] Influenza Virus Vaccine 2019-04-15 00:00:00 Completed [facility] Influenza High Dose 2019-04-15 00:00:00 Completed [facility] Influenza Virus Vaccine 2019-04-15 00:00:00 Completed [facility] Influenza High Dose 2019-04-15 00:00:00 Completed [facility] Influenza Virus Vaccine 2019-04-15 00:00:00 Completed [facility] Influenza High Dose 2019-04-15 00:00:00 Completed [facility] Influenza Virus Vaccine 2019-04-15 00:00:00 Completed [facility] Influenza High Dose 2019-04-15 00:00:00 Completed [facility] Influenza Virus Vaccine 2019-04-15 00:00:00 Completed [facility] Influenza High Dose 2019-04-15 00:00:00 Completed [facility] Influenza Virus Vaccine 2019-04-15 00:00:00 Completed [facility] Influenza High Dose 2019-04-15 00:00:00 Completed [facility] Influenza Virus Vaccine 2019-04-15 00:00:00 Completed [facility] Influenza High Dose 2019-04-15 00:00:00 Completed [facility] Influenza Virus Vaccine 2019-04-15 00:00:00 Completed [facility] Influenza High Dose 2019-04-15 00:00:00 Completed [facility] Influenza Virus Vaccine 2019-04-15 00:00:00 Completed [facility] Influenza High Dose 2019-04-15 00:00:00 Completed [facility] Influenza Virus Vaccine 2019-04-15 00:00:00 Completed [facility] Influenza High Dose 2019-04-15 00:00:00 Completed [facility] Influenza Virus Vaccine 2019-04-15 00:00:00 Completed [facility] Influenza High Dose 2019-04-15 00:00:00 Completed [facility] Influenza Virus Vaccine 2019-04-15 00:00:00 Completed [facility] Influenza High Dose 2019-04-15 00:00:00 Completed [facility] Influenza Virus Vaccine 2019-04-15 00:00:00 Completed [facility] Influenza High Dose 2019-04-15 00:00:00 Completed [facility] Influenza Virus Vaccine 2019-04-15 00:00:00 Completed [facility] Influenza High Dose 2019-04-15 00:00:00 Completed [facility] Influenza Virus Vaccine 2019-04-15 00:00:00 Completed [facility] Influenza High Dose 2019-04-15 00:00:00 Completed [facility] Influenza Virus Vaccine 2019-04-15 00:00:00 Completed [facility] Influenza High Dose 2019-04-15 00:00:00 Completed [facility] Influenza Virus Vaccine 2019-04-15 00:00:00 Completed [facility] Influenza High Dose 2019-04-15 00:00:00 Completed [facility] Influenza Virus Vaccine 2019-04-15 00:00:00 Completed [facility] Influenza High Dose 2019-04-15 00:00:00 Completed [facility] Influenza Virus Vaccine 2019-04-15 00:00:00 Completed [facility] Influenza High Dose 2019-04-15 00:00:00 Completed [facility] Influenza Virus Vaccine 2019-04-15 00:00:00 Completed [facility] Influenza High Dose 2019-04-15 00:00:00 Completed [facility] Influenza Virus Vaccine 2019-04-15 00:00:00 Completed [facility] Influenza High Dose 2019-04-15 00:00:00 Completed [facility] Influenza Virus Vaccine 2019-04-15 00:00:00 Completed [facility] Influenza High Dose 2019-04-15 00:00:00 Completed [facility] Influenza Virus Vaccine 2019-04-15 00:00:00 Completed [facility] Influenza High Dose 2019-04-15 00:00:00 Completed [facility] Influenza Virus Vaccine 2019-04-15 00:00:00 Completed [facility] Influenza High Dose 2019-04-15 00:00:00 Completed [facility] Influenza Virus Vaccine 2019-04-15 00:00:00 Completed [facility] Influenza High Dose 2019-04-15 00:00:00 Completed [facility] Influenza Virus Vaccine 2019-04-15 00:00:00 Completed [facility] Influenza High Dose 2019-04-15 00:00:00 Completed [facility] Influenza Virus Vaccine 2019-04-15 00:00:00 Completed [facility] Influenza High Dose 2019-04-15 00:00:00 Completed [facility] Influenza Virus Vaccine 2019-04-15 00:00:00 Completed [facility] Influenza High Dose 2019-04-15 00:00:00 Completed [facility] Influenza Virus Vaccine 2019-04-15 00:00:00 Completed [facility] Influenza High Dose 2019-04-15 00:00:00 Completed [facility] Influenza Virus Vaccine 2019-04-15 00:00:00 Completed [facility] Influenza High Dose 2019-04-15 00:00:00 Completed [facility] Influenza Virus Vaccine 2019-04-15 00:00:00 Completed [facility] Influenza High Dose 2019-04-15 00:00:00 Completed [facility] Influenza Virus Vaccine 2019-04-15 00:00:00 Completed [facility] Influenza High Dose 2019-04-15 00:00:00 Completed [facility] Influenza Virus Vaccine 2019-04-15 00:00:00 Completed [facility] Influenza High Dose 2019-04-15 00:00:00 Completed [facility] Influenza Virus Vaccine 2019-04-15 00:00:00 Completed [facility] Influenza High Dose 2019-04-15 00:00:00 Completed [facility] Influenza Virus Vaccine 2019-04-15 00:00:00 Completed [facility] Influenza High Dose 2019-04-15 00:00:00 Completed [facility] Influenza Virus Vaccine 2019-04-15 00:00:00 Completed [facility] Influenza High Dose 2019-04-15 00:00:00 Completed [facility] Influenza Virus Vaccine 2019-04-15 00:00:00 Completed [facility] Influenza High Dose 2019-04-15 00:00:00 Completed [facility] Influenza Virus Vaccine 2019-04-15 00:00:00 Completed [facility] Influenza, High-Dose, Trivalent, PF (FLUZONE) 2019-04-15 00:00:00 Completed [facility] Influenza Virus Vaccine 2019-04-15 00:00:00 Completed Influenza, High-Dose, Trivalent, PF (FLUZONE) 2019-04-15 00:00:00 Completed [facility] Influenza Virus Vaccine 2019-04-15 00:00:00 Completed Influenza, High-Dose, Trivalent, PF (FLUZONE) 2019-04-15 00:00:00 Completed [facility] Influenza Virus Vaccine 2019-04-15 00:00:00 Completed Influenza Virus Vaccine 2019-04-14 00:00:00 Completed [facility] Influenza Virus Vaccine 2019-04-14 00:00:00 Completed [facility] Influenza Virus Vaccine 2019-04-14 00:00:00 Completed [facility] Influenza Virus Vaccine 2019-04-14 00:00:00 Completed [facility] Influenza Virus Vaccine 2019-04-14 00:00:00 Completed [facility] Influenza Virus Vaccine 2019-04-14 00:00:00 Completed [facility] Influenza Virus Vaccine 2019-04-14 00:00:00 Completed [facility] Influenza Virus Vaccine 2019-04-14 00:00:00 Completed [facility] Influenza Virus Vaccine 2019-04-14 00:00:00 Completed [facility] Influenza Virus Vaccine 2019-04-14 00:00:00 Completed [facility] Influenza Virus Vaccine 2019-04-14 00:00:00 Completed [facility] Influenza Virus Vaccine 2019-04-14 00:00:00 Completed [facility] Influenza Virus Vaccine 2019-04-14 00:00:00 Completed [facility] Influenza Virus Vaccine 2019-04-14 00:00:00 Completed [facility] Influenza Virus Vaccine 2019-04-14 00:00:00 Completed [facility] Influenza Virus Vaccine 2019-04-14 00:00:00 Completed [facility] Influenza Virus Vaccine 2019-04-14 00:00:00 Completed [facility] Influenza Virus Vaccine 2019-04-14 00:00:00 Completed [facility] Influenza Virus Vaccine 2019-04-14 00:00:00 Completed [facility] Influenza Virus Vaccine 2019-04-14 00:00:00 Completed [facility] Influenza Virus Vaccine 2019-04-14 00:00:00 Completed [facility] Influenza Virus Vaccine 2019-04-14 00:00:00 Completed [facility] Influenza Virus Vaccine 2019-04-14 00:00:00 Completed [facility] Influenza Virus Vaccine 2019-04-14 00:00:00 Completed [facility] Influenza Virus Vaccine 2019-04-14 00:00:00 Completed [facility] Influenza Virus Vaccine 2019-04-14 00:00:00 Completed [facility] Influenza Virus Vaccine 2019-04-14 00:00:00 Completed [facility] Influenza Virus Vaccine 2019-04-14 00:00:00 Completed [facility] Influenza Virus Vaccine 2019-04-14 00:00:00 Completed [facility] Influenza Virus Vaccine 2019-04-14 00:00:00 Completed [facility] Influenza Virus Vaccine 2019-04-14 00:00:00 Completed [facility] Influenza Virus Vaccine 2019-04-14 00:00:00 Completed [facility] Influenza Virus Vaccine 2019-04-14 00:00:00 Completed [facility] Influenza Virus Vaccine 2019-04-14 00:00:00 Completed [facility] Influenza Virus Vaccine 2019-04-14 00:00:00 Completed [facility] [facility] Influenza Virus Vaccine 2019-04-14 00:00:00 Completed [facility] Influenza Virus Vaccine 2019-04-14 00:00:00 Completed [facility] Influenza Virus Vaccine 2019-04-14 00:00:00 Completed [facility] Influenza Virus Vaccine 2019-04-14 00:00:00 Completed [facility] Influenza Virus Vaccine 2019-04-14 00:00:00 Completed [facility] Influenza Virus Vaccine 2019-04-14 00:00:00 Completed [facility] Influenza Virus Vaccine 2019-04-14 00:00:00 Completed [facility] Influenza Virus Vaccine 2019-04-14 00:00:00 Completed [facility] Influenza Virus Vaccine 2019-04-14 00:00:00 Completed [facility] Influenza Virus Vaccine 2019-04-14 00:00:00 Completed [facility] Influenza Virus Vaccine 2019-04-14 00:00:00 Completed [facility] Influenza Virus Vaccine 2019-04-14 00:00:00 Completed [facility] Influenza Virus Vaccine 2019-04-14 00:00:00 Completed [facility] Influenza Virus Vaccine 2019-04-14 00:00:00 Completed [facility] Influenza Virus Vaccine 2019-04-14 00:00:00 Completed [facility] Influenza Virus Vaccine 2019-04-14 00:00:00 Completed [facility] Influenza Virus Vaccine 2019-04-14 00:00:00 Completed [facility] Influenza Virus Vaccine 2019-04-14 00:00:00 Completed [facility] Influenza Virus Vaccine 2019-04-14 00:00:00 Completed [facility] Influenza Virus Vaccine 2019-04-14 00:00:00 Completed [facility] Influenza Virus Vaccine 2019-04-14 00:00:00 Completed [facility] Influenza Virus Vaccine 2019-04-14 00:00:00 Completed [facility] Influenza Virus Vaccine 2019-04-14 00:00:00 Completed [facility] Influenza Virus Vaccine 2019-04-14 00:00:00 Completed [facility] Influenza Virus Vaccine 2019-04-14 00:00:00 Completed [facility] Influenza Virus Vaccine 2019-04-14 00:00:00 Completed [facility] Influenza Virus Vaccine 2019-04-14 00:00:00 Completed [facility] Influenza Virus Vaccine 2019-04-14 00:00:00 Completed [facility] Influenza Virus Vaccine 2019-04-14 00:00:00 Completed [facility] Influenza Virus Vaccine 2019-04-14 00:00:00 Completed [facility] Influenza Virus Vaccine 2019-04-14 00:00:00 Completed [facility] Influenza Virus Vaccine 2019-04-14 00:00:00 Completed [facility] Influenza Virus Vaccine 2019-04-14 00:00:00 Completed [facility] Influenza Virus Vaccine 2019-04-14 00:00:00 Completed [facility] Influenza Virus Vaccine 2019-04-14 00:00:00 Completed [facility] Influenza Virus Vaccine 2019-04-14 00:00:00 Completed [facility] Influenza Virus Vaccine 2019-04-14 00:00:00 Completed [facility] Influenza Virus Vaccine 2019-04-14 00:00:00 Completed [facility] Influenza Virus Vaccine 2019-04-14 00:00:00 Completed [facility] Influenza Virus Vaccine 2019-04-14 00:00:00 Completed [facility] Influenza Virus Vaccine 2019-04-14 00:00:00 Completed [facility] Influenza Virus Vaccine 2019-04-14 00:00:00 Completed [facility] Influenza Virus Vaccine 2019-04-14 00:00:00 Completed [facility] Influenza Virus Vaccine 2019-04-14 00:00:00 Completed [facility] Influenza Virus Vaccine 2019-04-14 00:00:00 Completed [facility] Influenza Virus Vaccine 2019-04-14 00:00:00 Completed [facility] Influenza Virus Vaccine 2019-04-14 00:00:00 Completed [facility] Influenza Virus Vaccine 2019-04-14 00:00:00 Completed [facility] Influenza Virus Vaccine 2019-04-14 00:00:00 Completed [facility] Influenza Virus Vaccine 2019-04-14 00:00:00 Completed [facility] Influenza Virus Vaccine 2019-04-14 00:00:00 Completed [facility] Influenza Virus Vaccine 2019-04-14 00:00:00 Completed [facility] Influenza Virus Vaccine 2019-04-14 00:00:00 Completed [facility] Influenza Virus Vaccine 2019-04-14 00:00:00 Completed [facility] Influenza Virus Vaccine 2019-04-14 00:00:00 Completed [facility] Influenza Virus Vaccine 2019-04-14 00:00:00 Completed [facility] Influenza Virus Vaccine 2019-04-14 00:00:00 Completed [facility] Influenza Virus Vaccine 2019-04-14 00:00:00 Completed [facility] Influenza Virus Vaccine 2019-04-14 00:00:00 Completed [facility] Influenza Virus Vaccine 2019-04-14 00:00:00 Completed [facility] Influenza Virus Vaccine 2019-04-14 00:00:00 Completed [facility] Influenza Virus Vaccine 2019-04-14 00:00:00 Completed [facility] Influenza Virus Vaccine 2019-04-14 00:00:00 Completed [facility] Influenza Virus Vaccine 2019-04-14 00:00:00 Completed [facility] Influenza Virus Vaccine 2019-04-14 00:00:00 Completed [facility] Influenza Virus Vaccine 2019-04-14 00:00:00 Completed [facility] Influenza Virus Vaccine 2019-04-14 00:00:00 Completed [facility] Influenza Virus Vaccine 2019-04-14 00:00:00 Completed [facility] Influenza Virus Vaccine 2019-04-14 00:00:00 Completed [facility] Influenza Virus Vaccine 2019-04-14 00:00:00 Completed [facility] Influenza Virus Vaccine 2019-04-14 00:00:00 Completed [facility] Influenza Virus Vaccine 2019-04-14 00:00:00 Completed [facility] Influenza Virus Vaccine 2019-04-14 00:00:00 Completed [facility] Influenza Virus Vaccine 2019-04-14 00:00:00 Completed [facility] Influenza Virus Vaccine 2019-04-14 00:00:00 Completed [facility] Influenza Virus Vaccine 2019-04-14 00:00:00 Completed [facility] Influenza Virus Vaccine 2019-04-14 00:00:00 Completed [facility] Influenza Virus Vaccine 2019-04-14 00:00:00 Completed [facility] Influenza Virus Vaccine 2019-04-14 00:00:00 Completed [facility] Influenza Virus Vaccine 2019-04-14 00:00:00 Completed [facility] Influenza Virus Vaccine 2019-04-14 00:00:00 Completed [facility] Influenza Virus Vaccine 2019-04-14 00:00:00 Completed [facility] Influenza Virus Vaccine 2019-04-14 00:00:00 Completed [facility] Influenza Virus Vaccine 2019-04-14 00:00:00 Completed [facility] Influenza Virus Vaccine 2019-04-14 00:00:00 Completed [facility] Influenza Virus Vaccine 2019-04-14 00:00:00 Completed [facility] Influenza Virus Vaccine 2019-04-14 00:00:00 Completed [facility] Influenza Virus Vaccine 2019-04-14 00:00:00 Completed [facility] Influenza Virus Vaccine 2019-04-14 00:00:00 Completed [facility] Influenza Virus Vaccine 2019-04-14 00:00:00 Completed [facility] Influenza Virus Vaccine 2019-04-14 00:00:00 Completed [facility] Influenza Virus Vaccine 2019-04-14 00:00:00 Completed Influenza Virus Vaccine 2019-04-14 00:00:00 Completed Influenza Virus Vaccine 2019-04-14 00:00:00 Completed Influenza Virus Vaccine Quad IM Multi-dose 6+ MO 2019-04-03 00:00:00 Completed [facility] Pneumococcal Polysaccharide, PPSV23 (PNEUMOVAX) 2019-04-03 00:00:00 Completed [facility] Influenza Virus Vaccine Quad IM Multi-dose 6+ MO 2019-04-03 00:00:00 Completed [facility] Pneumococcal Polysaccharide, PPSV23 (PNEUMOVAX) 2019-04-03 00:00:00 Completed [facility] Influenza Virus Vaccine Quad IM Multi-dose 6+ MO 2019-04-03 00:00:00 Completed [facility] Pneumococcal Polysaccharide, PPSV23 (PNEUMOVAX) 2019-04-03 00:00:00 Completed [facility] Influenza Virus Vaccine Quad IM Multi-dose 6+ MO 2019-04-03 00:00:00 Completed [facility] Pneumococcal Polysaccharide, PPSV23 (PNEUMOVAX) 2019-04-03 00:00:00 Completed [facility] Influenza Virus Vaccine Quad IM Multi-dose 6+ MO 2019-04-03 00:00:00 Completed [facility] Pneumococcal Polysaccharide, PPSV23 (PNEUMOVAX) 2019-04-03 00:00:00 Completed [facility] Influenza Virus Vaccine Quad IM Multi-dose 6+ MO 2019-04-03 00:00:00 Completed [facility] Pneumococcal Polysaccharide, PPSV23 (PNEUMOVAX) 2019-04-03 00:00:00 Completed [facility] Influenza Virus Vaccine Quad IM Multi-dose 6+ MO 2019-04-03 00:00:00 Completed [facility] Pneumococcal Polysaccharide, PPSV23 (PNEUMOVAX) 2019-04-03 00:00:00 Completed [facility] Influenza Virus Vaccine Quad IM Multi-dose 6+ MO 2019-04-03 00:00:00 Completed [facility] Pneumococcal Polysaccharide, PPSV23 (PNEUMOVAX) 2019-04-03 00:00:00 Completed [facility] Influenza Virus Vaccine Quad IM Multi-dose 6+ MO 2019-04-03 00:00:00 Completed [facility] Pneumococcal Polysaccharide, PPSV23 (PNEUMOVAX) 2019-04-03 00:00:00 Completed [facility] Influenza Virus Vaccine Quad IM Multi-dose 6+ MO 2019-04-03 00:00:00 Completed [facility] Pneumococcal Polysaccharide, PPSV23 (PNEUMOVAX) 2019-04-03 00:00:00 Completed [facility] Influenza Virus Vaccine Quad IM Multi-dose 6+ MO 2019-04-03 00:00:00 Completed [facility] Pneumococcal Polysaccharide, PPSV23 (PNEUMOVAX) 2019-04-03 00:00:00 Completed [facility] Influenza Virus Vaccine Quad IM Multi-dose 6+ MO 2019-04-03 00:00:00 Completed [facility] Pneumococcal Polysaccharide, PPSV23 (PNEUMOVAX) 2019-04-03 00:00:00 Completed [facility] Influenza Virus Vaccine Quad IM Multi-dose 6+ MO 2019-04-03 00:00:00 Completed [facility] Pneumococcal Polysaccharide, PPSV23 (PNEUMOVAX) 2019-04-03 00:00:00 Completed [facility] Influenza Virus Vaccine Quad IM Multi-dose 6+ MO 2019-04-03 00:00:00 Completed [facility] Pneumococcal Polysaccharide, PPSV23 (PNEUMOVAX) 2019-04-03 00:00:00 Completed [facility] Influenza Virus Vaccine Quad IM Multi-dose 6+ MO 2019-04-03 00:00:00 Completed [facility] Pneumococcal Polysaccharide, PPSV23 (PNEUMOVAX) 2019-04-03 00:00:00 Completed [facility] Influenza Virus Vaccine Quad IM Multi-dose 6+ MO 2019-04-03 00:00:00 Completed [facility] Pneumococcal Polysaccharide, PPSV23 (PNEUMOVAX) 2019-04-03 00:00:00 Completed [facility] Influenza Virus Vaccine Quad IM Multi-dose 6+ MO 2019-04-03 00:00:00 Completed [facility] Pneumococcal Polysaccharide, PPSV23 (PNEUMOVAX) 2019-04-03 00:00:00 Completed [facility] Influenza Virus Vaccine Quad IM Multi-dose 6+ MO 2019-04-03 00:00:00 Completed [facility] Pneumococcal Polysaccharide, PPSV23 (PNEUMOVAX) 2019-04-03 00:00:00 Completed [facility] Influenza Virus Vaccine Quad IM Multi-dose 6+ MO 2019-04-03 00:00:00 Completed [facility] Pneumococcal Polysaccharide, PPSV23 (PNEUMOVAX) 2019-04-03 00:00:00 Completed [facility] Influenza Virus Vaccine Quad IM Multi-dose 6+ MO 2019-04-03 00:00:00 Completed [facility] Pneumococcal Polysaccharide, PPSV23 (PNEUMOVAX) 2019-04-03 00:00:00 Completed [facility] Influenza Virus Vaccine Quad IM Multi-dose 6+ MO 2019-04-03 00:00:00 Completed [facility] Pneumococcal Polysaccharide, PPSV23 (PNEUMOVAX) 2019-04-03 00:00:00 Completed [facility] Influenza Virus Vaccine Quad IM Multi-dose 6+ MO 2019-04-03 00:00:00 Completed [facility] Pneumococcal Polysaccharide, PPSV23 (PNEUMOVAX) 2019-04-03 00:00:00 Completed [facility] Influenza Virus Vaccine Quad IM Multi-dose 6+ MO 2019-04-03 00:00:00 Completed [facility] Pneumococcal Polysaccharide, PPSV23 (PNEUMOVAX) 2019-04-03 00:00:00 Completed [facility] Influenza Virus Vaccine Quad IM Multi-dose 6+ MO 2019-04-03 00:00:00 Completed [facility] Pneumococcal Polysaccharide, PPSV23 (PNEUMOVAX) 2019-04-03 00:00:00 Completed [facility] Influenza Virus Vaccine Quad IM Multi-dose 6+ MO 2019-04-03 00:00:00 Completed [facility] Pneumococcal Polysaccharide, PPSV23 (PNEUMOVAX) 2019-04-03 00:00:00 Completed [facility] Influenza Virus Vaccine Quad IM Multi-dose 6+ MO 2019-04-03 00:00:00 Completed [facility] Pneumococcal Polysaccharide, PPSV23 (PNEUMOVAX) 2019-04-03 00:00:00 Completed [facility] Influenza Virus Vaccine Quad IM Multi-dose 6+ MO 2019-04-03 00:00:00 Completed [facility] Pneumococcal Polysaccharide, PPSV23 (PNEUMOVAX) 2019-04-03 00:00:00 Completed [facility] Influenza Virus Vaccine Quad IM Multi-dose 6+ MO 2019-04-03 00:00:00 Completed [facility] Pneumococcal Polysaccharide, PPSV23 (PNEUMOVAX) 2019-04-03 00:00:00 Completed [facility] Influenza Virus Vaccine Quad IM Multi-dose 6+ MO 2019-04-03 00:00:00 Completed [facility] Pneumococcal Polysaccharide, PPSV23 (PNEUMOVAX) 2019-04-03 00:00:00 Completed [facility] Influenza Virus Vaccine Quad IM Multi-dose 6+ MO 2019-04-03 00:00:00 Completed [facility] Pneumococcal Polysaccharide, PPSV23 (PNEUMOVAX) 2019-04-03 00:00:00 Completed [facility] Influenza Virus Vaccine Quad IM Multi-dose 6+ MO 2019-04-03 00:00:00 Completed [facility] Pneumococcal Polysaccharide, PPSV23 (PNEUMOVAX) 2019-04-03 00:00:00 Completed [facility] Influenza Virus Vaccine Quad IM Multi-dose 6+ MO 2019-04-03 00:00:00 Completed [facility] Pneumococcal Polysaccharide, PPSV23 (PNEUMOVAX) 2019-04-03 00:00:00 Completed [facility] Influenza Virus Vaccine Quad IM Multi-dose 6+ MO 2019-04-03 00:00:00 Completed [facility] Pneumococcal Polysaccharide, PPSV23 (PNEUMOVAX) 2019-04-03 00:00:00 Completed [facility] Influenza Virus Vaccine Quad IM Multi-dose 6+ MO 2019-04-03 00:00:00 Completed [facility] Pneumococcal Polysaccharide, PPSV23 (PNEUMOVAX) 2019-04-03 00:00:00 Completed [facility] Influenza Virus Vaccine Quad IM Multi-dose 6+ MO 2019-04-03 00:00:00 Completed [facility] Pneumococcal Polysaccharide, PPSV23 (PNEUMOVAX) 2019-04-03 00:00:00 Completed [facility] Influenza Virus Vaccine Quad IM Multi-dose 6+ MO 2019-04-03 00:00:00 Completed [facility] Pneumococcal Polysaccharide, PPSV23 (PNEUMOVAX) 2019-04-03 00:00:00 Completed [facility] Influenza Virus Vaccine Quad IM Multi-dose 6+ MO 2019-04-03 00:00:00 Completed [facility] Pneumococcal Polysaccharide, PPSV23 (PNEUMOVAX) 2019-04-03 00:00:00 Completed [facility] Influenza Virus Vaccine Quad IM Multi-dose 6+ MO 2019-04-03 00:00:00 Completed [facility] Pneumococcal Polysaccharide, PPSV23 (PNEUMOVAX) 2019-04-03 00:00:00 Completed [facility] Influenza Virus Vaccine Quad IM Multi-dose 6+ MO 2019-04-03 00:00:00 Completed [facility] Pneumococcal Polysaccharide, PPSV23 (PNEUMOVAX) 2019-04-03 00:00:00 Completed [facility] Influenza Virus Vaccine Quad IM Multi-dose 6+ MO 2019-04-03 00:00:00 Completed [facility] Pneumococcal Polysaccharide, PPSV23 (PNEUMOVAX) 2019-04-03 00:00:00 Completed [facility] Influenza Virus Vaccine Quad IM Multi-dose 6+ MO 2019-04-03 00:00:00 Completed [facility] Pneumococcal Polysaccharide, PPSV23 (PNEUMOVAX) 2019-04-03 00:00:00 Completed [facility] Influenza Virus Vaccine Quad IM Multi-dose 6+ MO 2019-04-03 00:00:00 Completed [facility] Pneumococcal Polysaccharide, PPSV23 (PNEUMOVAX) 2019-04-03 00:00:00 Completed [facility] Influenza Virus Vaccine Quad IM Multi-dose 6+ MO 2019-04-03 00:00:00 Completed [facility] Pneumococcal Polysaccharide, PPSV23 (PNEUMOVAX) 2019-04-03 00:00:00 Completed [facility] Influenza Virus Vaccine Quad IM Multi-dose 6+ MO 2019-04-03 00:00:00 Completed [facility] Pneumococcal Polysaccharide, PPSV23 (PNEUMOVAX) 2019-04-03 00:00:00 Completed [facility] Influenza Virus Vaccine Quad IM Multi-dose 6+ MO 2019-04-03 00:00:00 Completed [facility] Pneumococcal Polysaccharide, PPSV23 (PNEUMOVAX) 2019-04-03 00:00:00 Completed [facility] Influenza Virus Vaccine Quad IM Multi-dose 6+ MO 2019-04-03 00:00:00 Completed [facility] Pneumococcal Polysaccharide, PPSV23 (PNEUMOVAX) 2019-04-03 00:00:00 Completed [facility] Influenza Virus Vaccine Quad IM Multi-dose 6+ MO 2019-04-03 00:00:00 Completed [facility] Pneumococcal Polysaccharide, PPSV23 (PNEUMOVAX) 2019-04-03 00:00:00 Completed [facility] Influenza Virus Vaccine Quad IM Multi-dose 6+ MO 2019-04-03 00:00:00 Completed [facility] Pneumococcal Polysaccharide, PPSV23 (PNEUMOVAX) 2019-04-03 00:00:00 Completed [facility] Influenza Virus Vaccine Quad IM Multi-dose 6+ MO 2019-04-03 00:00:00 Completed [facility] Pneumococcal Polysaccharide, PPSV23 (PNEUMOVAX) 2019-04-03 00:00:00 Completed [facility] Influenza Virus Vaccine Quad IM Multi-dose 6+ MO 2019-04-03 00:00:00 Completed [facility] Pneumococcal Polysaccharide, PPSV23 (PNEUMOVAX) 2019-04-03 00:00:00 Completed [facility] Influenza Virus Vaccine Quad IM Multi-dose 6+ MO 2019-04-03 00:00:00 Completed [facility] Pneumococcal Polysaccharide, PPSV23 (PNEUMOVAX) 2019-04-03 00:00:00 Completed [facility] Influenza Virus Vaccine Quad IM Multi-dose 6+ MO 2019-04-03 00:00:00 Completed [facility] Pneumococcal Polysaccharide, PPSV23 (PNEUMOVAX) 2019-04-03 00:00:00 Completed [facility] Influenza Virus Vaccine Quad IM Multi-dose 6+ MO 2019-04-03 00:00:00 Completed [facility] Pneumococcal Polysaccharide, PPSV23 (PNEUMOVAX) 2019-04-03 00:00:00 Completed [facility] Influenza Virus Vaccine Quad IM Multi-dose 6+ MO 2019-04-03 00:00:00 Completed [facility] Pneumococcal Polysaccharide, PPSV23 (PNEUMOVAX) 2019-04-03 00:00:00 Completed [facility] Influenza Virus Vaccine Quad IM Multi-dose 6+ MO 2019-04-03 00:00:00 Completed [facility] Pneumococcal Polysaccharide, PPSV23 (PNEUMOVAX) 2019-04-03 00:00:00 Completed [facility] Influenza Virus Vaccine Quad IM Multi-dose 6+ MO 2019-04-03 00:00:00 Completed [facility] Pneumococcal Polysaccharide, PPSV23 (PNEUMOVAX) 2019-04-03 00:00:00 Completed [facility] Influenza Virus Vaccine Quad IM Multi-dose 6+ MO 2019-04-03 00:00:00 Completed [facility] Pneumococcal Polysaccharide, PPSV23 (PNEUMOVAX) 2019-04-03 00:00:00 Completed [facility] Influenza Virus Vaccine Quad IM Multi-dose 6+ MO 2019-04-03 00:00:00 Completed [facility] Pneumococcal Polysaccharide, PPSV23 (PNEUMOVAX) 2019-04-03 00:00:00 Completed [facility] Influenza Virus Vaccine Quad IM Multi-dose 6+ MO 2019-04-03 00:00:00 Completed [facility] Pneumococcal Polysaccharide, PPSV23 (PNEUMOVAX) 2019-04-03 00:00:00 Completed [facility] Influenza Virus Vaccine Quad IM Multi-dose 6+ MO 2019-04-03 00:00:00 Completed [facility] Pneumococcal Polysaccharide, PPSV23 (PNEUMOVAX) 2019-04-03 00:00:00 Completed [facility] Influenza Virus Vaccine Quad IM Multi-dose 6+ MO 2019-04-03 00:00:00 Completed [facility] Pneumococcal Polysaccharide, PPSV23 (PNEUMOVAX) 2019-04-03 00:00:00 Completed [facility] Influenza Virus Vaccine Quad IM Multi-dose 6+ MO 2019-04-03 00:00:00 Completed [facility] Pneumococcal Polysaccharide, PPSV23 (PNEUMOVAX) 2019-04-03 00:00:00 Completed [facility] Influenza Virus Vaccine Quad IM Multi-dose 6+ MO 2019-04-03 00:00:00 Completed [facility] Pneumococcal Polysaccharide, PPSV23 (PNEUMOVAX) 2019-04-03 00:00:00 Completed [facility] Influenza Virus Vaccine Quad IM Multi-dose 6+ MO 2019-04-03 00:00:00 Completed [facility] Pneumococcal Polysaccharide, PPSV23 (PNEUMOVAX) 2019-04-03 00:00:00 Completed [facility] Influenza Virus Vaccine Quad IM Multi-dose 6+ MO 2019-04-03 00:00:00 Completed [facility] Pneumococcal Polysaccharide, PPSV23 (PNEUMOVAX) 2019-04-03 00:00:00 Completed [facility] Influenza Virus Vaccine Quad IM Multi-dose 6+ MO 2019-04-03 00:00:00 Completed [facility] Pneumococcal Polysaccharide, PPSV23 (PNEUMOVAX) 2019-04-03 00:00:00 Completed [facility] Influenza Virus Vaccine Quad IM Multi-dose 6+ MO 2019-04-03 00:00:00 Completed [facility] Pneumococcal Polysaccharide, PPSV23 (PNEUMOVAX) 2019-04-03 00:00:00 Completed [facility] Influenza Virus Vaccine Quad IM Multi-dose 6+ MO 2019-04-03 00:00:00 Completed [facility] Pneumococcal Polysaccharide, PPSV23 (PNEUMOVAX) 2019-04-03 00:00:00 Completed [facility] Influenza Virus Vaccine Quad IM Multi-dose 6+ MO 2019-04-03 00:00:00 Completed [facility] Pneumococcal Polysaccharide, PPSV23 (PNEUMOVAX) 2019-04-03 00:00:00 Completed [facility] Influenza Virus Vaccine Quad IM Multi-dose 6+ MO 2019-04-03 00:00:00 Completed [facility] Pneumococcal Polysaccharide, PPSV23 (PNEUMOVAX) 2019-04-03 00:00:00 Completed [facility] Influenza Virus Vaccine Quad IM Multi-dose 6+ MO 2019-04-03 00:00:00 Completed [facility] Pneumococcal Polysaccharide, PPSV23 (PNEUMOVAX) 2019-04-03 00:00:00 Completed [facility] Influenza Virus Vaccine Quad IM Multi-dose 6+ MO 2019-04-03 00:00:00 Completed [facility] Pneumococcal Polysaccharide, PPSV23 (PNEUMOVAX) 2019-04-03 00:00:00 Completed [facility] Influenza Virus Vaccine Quad IM Multi-dose 6+ MO 2019-04-03 00:00:00 Completed [facility] Pneumococcal Polysaccharide, PPSV23 (PNEUMOVAX) 2019-04-03 00:00:00 Completed [facility] Influenza Virus Vaccine Quad IM Multi-dose 6+ MO 2019-04-03 00:00:00 Completed [facility] Pneumococcal Polysaccharide, PPSV23 (PNEUMOVAX) 2019-04-03 00:00:00 Completed [facility] Influenza Virus Vaccine Quad IM Multi-dose 6+ MO 2019-04-03 00:00:00 Completed [facility] Pneumococcal Polysaccharide, PPSV23 (PNEUMOVAX) 2019-04-03 00:00:00 Completed [facility] Influenza Virus Vaccine Quad IM Multi-dose 6+ MO 2019-04-03 00:00:00 Completed [facility] Pneumococcal Polysaccharide, PPSV23 (PNEUMOVAX) 2019-04-03 00:00:00 Completed [facility] Influenza Virus Vaccine Quad IM Multi-dose 6+ MO 2019-04-03 00:00:00 Completed [facility] Pneumococcal Polysaccharide, PPSV23 (PNEUMOVAX) 2019-04-03 00:00:00 Completed [facility] Influenza Virus Vaccine Quad IM Multi-dose 6+ MO 2019-04-03 00:00:00 Completed [facility] Pneumococcal Polysaccharide, PPSV23 (PNEUMOVAX) 2019-04-03 00:00:00 Completed [facility] Influenza Virus Vaccine Quad IM Multi-dose 6+ MO 2019-04-03 00:00:00 Completed [facility] Pneumococcal Polysaccharide, PPSV23 (PNEUMOVAX) 2019-04-03 00:00:00 Completed [facility] Influenza Virus Vaccine Quad IM Multi-dose 6+ MO 2019-04-03 00:00:00 Completed [facility] Pneumococcal Polysaccharide, PPSV23 (PNEUMOVAX) 2019-04-03 00:00:00 Completed [facility] Influenza Virus Vaccine Quad IM Multi-dose 6+ MO 2019-04-03 00:00:00 Completed [facility] Pneumococcal Polysaccharide, PPSV23 (PNEUMOVAX) 2019-04-03 00:00:00 Completed [facility] Influenza Virus Vaccine Quad IM Multi-dose 6+ MO 2019-04-03 00:00:00 Completed [facility] Pneumococcal Polysaccharide, PPSV23 (PNEUMOVAX) 2019-04-03 00:00:00 Completed [facility] Influenza Virus Vaccine Quad IM Multi-dose 6+ MO 2019-04-03 00:00:00 Completed [facility] Pneumococcal Polysaccharide, PPSV23 (PNEUMOVAX) 2019-04-03 00:00:00 Completed [facility] Influenza Virus Vaccine Quad IM Multi-dose 6+ MO 2019-04-03 00:00:00 Completed [facility] Pneumococcal Polysaccharide, PPSV23 (PNEUMOVAX) 2019-04-03 00:00:00 Completed [facility] Influenza Virus Vaccine Quad IM Multi-dose 6+ MO 2019-04-03 00:00:00 Completed [facility] Pneumococcal Polysaccharide, PPSV23 (PNEUMOVAX) 2019-04-03 00:00:00 Completed [facility] Influenza Virus Vaccine Quad IM Multi-dose 6+ MO 2019-04-03 00:00:00 Completed [facility] Pneumococcal Polysaccharide, PPSV23 (PNEUMOVAX) 2019-04-03 00:00:00 Completed [facility] Influenza Virus Vaccine Quad IM Multi-dose 6+ MO 2019-04-03 00:00:00 Completed [facility] Pneumococcal Polysaccharide, PPSV23 (PNEUMOVAX) 2019-04-03 00:00:00 Completed [facility] Influenza Virus Vaccine Quad IM Multi-dose 6+ MO 2019-04-03 00:00:00 Completed [facility] Pneumococcal Polysaccharide, PPSV23 (PNEUMOVAX) 2019-04-03 00:00:00 Completed [facility] Influenza Virus Vaccine Quad IM Multi-dose 6+ MO 2019-04-03 00:00:00 Completed [facility] Pneumococcal Polysaccharide, PPSV23 (PNEUMOVAX) 2019-04-03 00:00:00 Completed [facility] Influenza Virus Vaccine Quad IM Multi-dose 6+ MO 2019-04-03 00:00:00 Completed [facility] Pneumococcal Polysaccharide, PPSV23 (PNEUMOVAX) 2019-04-03 00:00:00 Completed [facility] Influenza Virus Vaccine Quad IM Multi-dose 6+ MO 2019-04-03 00:00:00 Completed [facility] Pneumococcal Polysaccharide, PPSV23 (PNEUMOVAX) 2019-04-03 00:00:00 Completed [facility] Influenza Virus Vaccine Quad IM Multi-dose 6+ MO 2019-04-03 00:00:00 Completed [facility] Pneumococcal Polysaccharide, PPSV23 (PNEUMOVAX) 2019-04-03 00:00:00 Completed [facility] Influenza Virus Vaccine Quad IM Multi-dose 6+ MO 2019-04-03 00:00:00 Completed [facility] Pneumococcal Polysaccharide, PPSV23 (PNEUMOVAX) 2019-04-03 00:00:00 Completed [facility] Influenza Virus Vaccine Quad IM Multi-dose 6+ MO 2019-04-03 00:00:00 Completed [facility] Pneumococcal Polysaccharide, PPSV23 (PNEUMOVAX) 2019-04-03 00:00:00 Completed [facility] Influenza Virus Vaccine Quad IM Multi-dose 6+ MO 2019-04-03 00:00:00 Completed [facility] Pneumococcal Polysaccharide, PPSV23 (PNEUMOVAX) 2019-04-03 00:00:00 Completed [facility] Influenza Virus Vaccine Quad IM Multi-dose 6+ MO 2019-04-03 00:00:00 Completed [facility] Pneumococcal Polysaccharide, PPSV23 (PNEUMOVAX) 2019-04-03 00:00:00 Completed [facility] Influenza Virus Vaccine Quad IM Multi-dose 6+ MO 2019-04-03 00:00:00 Completed [facility] Pneumococcal Polysaccharide, PPSV23 (PNEUMOVAX) 2019-04-03 00:00:00 Completed [facility] Influenza Virus Vaccine Quad IM Multi-dose 6+ MO 2019-04-03 00:00:00 Completed [facility] Pneumococcal Polysaccharide, PPSV23 (PNEUMOVAX) 2019-04-03 00:00:00 Completed [facility] Influenza Virus Vaccine Quad IM Multi-dose 6+ MO 2019-04-03 00:00:00 Completed [facility] Pneumococcal Polysaccharide, PPSV23 (PNEUMOVAX) 2019-04-03 00:00:00 Completed [facility] Influenza Virus Vaccine Quad IM Multi-dose 6+ MO 2019-04-03 00:00:00 Completed [facility] Pneumococcal Polysaccharide, PPSV23 (PNEUMOVAX) 2019-04-03 00:00:00 Completed [facility] Influenza Virus Vaccine Quad IM Multi-dose 6+ MO 2019-04-03 00:00:00 Completed [facility] Pneumococcal Polysaccharide, PPSV23 (PNEUMOVAX) 2019-04-03 00:00:00 Completed [facility] Influenza Virus Vaccine Quad IM Multi-dose 6+ MO 2019-04-03 00:00:00 Completed [facility] Pneumococcal Polysaccharide, PPSV23 (PNEUMOVAX) 2019-04-03 00:00:00 Completed [facility] Influenza Virus Vaccine Quad IM Multi-dose 6+ MO 2019-04-03 00:00:00 Completed [facility] Pneumococcal Polysaccharide, PPSV23 (PNEUMOVAX) 2019-04-03 00:00:00 Completed [facility] Influenza Virus Vaccine Quad IM Multi-dose 6+ MO 2019-04-03 00:00:00 Completed [facility] Pneumococcal Polysaccharide, PPSV23 (PNEUMOVAX) 2019-04-03 00:00:00 Completed [facility] Influenza Virus Vaccine Quad IM Multi-dose 6+ MO 2019-04-03 00:00:00 Completed [facility] Pneumococcal Polysaccharide, PPSV23 (PNEUMOVAX) 2019-04-03 00:00:00 Completed [facility] Influenza Virus Vaccine Quad IM Multi-dose 6+ MO 2019-04-03 00:00:00 Completed [facility] Pneumococcal Polysaccharide, PPSV23 (PNEUMOVAX) 2019-04-03 00:00:00 Completed [facility] Influenza Virus Vaccine Quad IM Multi-dose 6+ MO 2019-04-03 00:00:00 Completed [facility] Pneumococcal Polysaccharide, PPSV23 (PNEUMOVAX) 2019-04-03 00:00:00 Completed [facility] Influenza Virus Vaccine Quad IM Multi-dose 6+ MO 2019-04-03 00:00:00 Completed [facility] Pneumococcal Polysaccharide, PPSV23 (PNEUMOVAX) 2019-04-03 00:00:00 Completed [facility] Influenza Virus Vaccine Quad IM Multi-dose 6+ MO 2019-04-03 00:00:00 Completed [facility] Pneumococcal Polysaccharide, PPSV23 (PNEUMOVAX) 2019-04-03 00:00:00 Completed [facility] Influenza Virus Vaccine Quad IM Multi-dose 6+ MO 2019-04-03 00:00:00 Completed [facility] Pneumococcal Polysaccharide, PPSV23 (PNEUMOVAX) 2019-04-03 00:00:00 Completed [facility] Influenza Virus Vaccine Quad IM Multi-dose 6+ MO 2019-04-03 00:00:00 Completed [facility] Pneumococcal Polysaccharide, PPSV23 (PNEUMOVAX) 2019-04-03 00:00:00 Completed [facility] Influenza Virus Vaccine Quad IM Multi-dose 6+ MO 2019-04-03 00:00:00 Completed [facility] Pneumococcal Polysaccharide, PPSV23 (PNEUMOVAX) 2019-04-03 00:00:00 Completed [facility] Influenza Virus Vaccine Quad IM Multi-dose 6+ MO 2019-04-03 00:00:00 Completed [facility] Pneumococcal Polysaccharide, PPSV23 (PNEUMOVAX) 2019-04-03 00:00:00 Completed [facility] Influenza Virus Vaccine Quad IM Multi-dose 6+ MO 2019-04-03 00:00:00 Completed [facility] Pneumococcal Polysaccharide, PPSV23 (PNEUMOVAX) 2019-04-03 00:00:00 Completed [facility] Influenza Virus Vaccine Quad IM Multi-dose 6+ MO 2019-04-03 00:00:00 Completed [facility] Pneumococcal Polysaccharide, PPSV23 (PNEUMOVAX) 2019-04-03 00:00:00 Completed [facility] Influenza Virus Vaccine Quad IM Multi-dose 6+ MO 2019-04-03 00:00:00 Completed [facility] Pneumococcal Polysaccharide, PPSV23 (PNEUMOVAX) 2019-04-03 00:00:00 Completed [facility] Influenza Virus Vaccine Quad IM Multi-dose 6+ MO 2019-04-03 00:00:00 Completed [facility] Pneumococcal Polysaccharide, PPSV23 (PNEUMOVAX) 2019-04-03 00:00:00 Completed [facility] Influenza Virus Vaccine Quad IM Multi-dose 6+ MO 2019-04-03 00:00:00 Completed [facility] Pneumococcal Polysaccharide, PPSV23 (PNEUMOVAX) 2019-04-03 00:00:00 Completed [facility] Influenza Virus Vaccine Quad IM Multi-dose 6+ MO 2019-04-03 00:00:00 Completed [facility] Pneumococcal Polysaccharide, PPSV23 (PNEUMOVAX) 2019-04-03 00:00:00 Completed [facility] Influenza Virus Vaccine Quad IM Multi-dose 6+ MO 2019-04-03 00:00:00 Completed [facility] Pneumococcal Polysaccharide, PPSV23 (PNEUMOVAX) 2019-04-03 00:00:00 Completed [facility] Influenza Virus Vaccine Quad IM Multi-dose 6+ MO 2019-04-03 00:00:00 Completed [facility] Pneumococcal Polysaccharide, PPSV23 (PNEUMOVAX) 2019-04-03 00:00:00 Completed [facility] Influenza Virus Vaccine Quad IM Multi-dose 6+ MO 2019-04-03 00:00:00 Completed [facility] Pneumococcal Polysaccharide, PPSV23 (PNEUMOVAX) 2019-04-03 00:00:00 Completed [facility] Influenza Virus Vaccine Quad IM Multi-dose 6+ MO 2019-04-03 00:00:00 Completed [facility] Pneumococcal Polysaccharide, PPSV23 (PNEUMOVAX) 2019-04-03 00:00:00 Completed [facility] Influenza Virus Vaccine Quad IM Multi-dose 6+ MO 2019-04-03 00:00:00 Completed [facility] Pneumococcal Polysaccharide, PPSV23 (PNEUMOVAX) 2019-04-03 00:00:00 Completed [facility] Influenza Virus Vaccine Quad IM Multi-dose 6+ MO 2019-04-03 00:00:00 Completed [facility] Pneumococcal Polysaccharide, PPSV23 (PNEUMOVAX) 2019-04-03 00:00:00 Completed [facility] Influenza Virus Vaccine Quad IM Multi-dose 6+ MO 2019-04-03 00:00:00 Completed [facility] Pneumococcal Polysaccharide, PPSV23 (PNEUMOVAX) 2019-04-03 00:00:00 Completed [facility] Influenza Virus Vaccine Quad IM Multi-dose 6+ MO 2019-04-03 00:00:00 Completed [facility] Pneumococcal Polysaccharide, PPSV23 (PNEUMOVAX) 2019-04-03 00:00:00 Completed Influenza Virus Vaccine Quad IM Multi-dose 6+ MO 2019-04-03 00:00:00 Completed Pneumococcal Polysaccharide, PPSV23 (PNEUMOVAX) 2019-04-03 00:00:00 Completed Influenza Virus Vaccine Quad IM Multi-dose 6+ MO 2019-04-03 00:00:00 Completed Pneumococcal Polysaccharide, PPSV23 (PNEUMOVAX) 2019-04-03 00:00:00 Completed Influenza High Dose 2018-04-24 00:00:00 Completed [facility] Influenza High Dose 2018-04-24 00:00:00 Completed [facility] Influenza High Dose 2018-04-24 00:00:00 Completed [facility] Influenza High Dose 2018-04-24 00:00:00 Completed [facility] Influenza High Dose 2018-04-24 00:00:00 Completed [facility] Influenza High Dose 2018-04-24 00:00:00 Completed [facility] Influenza High Dose 2018-04-24 00:00:00 Completed [facility] Influenza High Dose 2018-04-24 00:00:00 Completed [facility] Influenza High Dose 2018-04-24 00:00:00 Completed [facility] Influenza High Dose 2018-04-24 00:00:00 Completed [facility] Influenza High Dose 2018-04-24 00:00:00 Completed [facility] Influenza High Dose 2018-04-24 00:00:00 Completed [facility] Influenza High Dose 2018-04-24 00:00:00 Completed [facility] Influenza High Dose 2018-04-24 00:00:00 Completed [facility] Influenza High Dose 2018-04-24 00:00:00 Completed [facility] Influenza High Dose 2018-04-24 00:00:00 Completed [facility] Influenza High Dose 2018-04-24 00:00:00 Completed [facility] Influenza High Dose 2018-04-24 00:00:00 Completed [facility] Influenza High Dose 2018-04-24 00:00:00 Completed [facility] Influenza High Dose 2018-04-24 00:00:00 Completed [facility] Influenza High Dose 2018-04-24 00:00:00 Completed [facility] Influenza High Dose 2018-04-24 00:00:00 Completed [facility] Influenza High Dose 2018-04-24 00:00:00 Completed [facility] Influenza High Dose 2018-04-24 00:00:00 Completed [facility] Influenza High Dose 2018-04-24 00:00:00 Completed [facility] Influenza High Dose 2018-04-24 00:00:00 Completed [facility] Influenza High Dose 2018-04-24 00:00:00 Completed [facility] Influenza High Dose 2018-04-24 00:00:00 Completed [facility] Influenza High Dose 2018-04-24 00:00:00 Completed [facility] Influenza High Dose 2018-04-24 00:00:00 Completed [facility] Influenza High Dose 2018-04-24 00:00:00 Completed [facility] Influenza High Dose 2018-04-24 00:00:00 Completed [facility] Influenza High Dose 2018-04-24 00:00:00 Completed [facility] Influenza High Dose 2018-04-24 00:00:00 Completed [facility] Influenza High Dose 2018-04-24 00:00:00 Completed [facility] Influenza High Dose 2018-04-24 00:00:00 Completed [facility] Influenza High Dose 2018-04-24 00:00:00 Completed [facility] Influenza High Dose 2018-04-24 00:00:00 Completed [facility] Influenza High Dose 2018-04-24 00:00:00 Completed [facility] Influenza High Dose 2018-04-24 00:00:00 Completed [facility] Influenza High Dose 2018-04-24 00:00:00 Completed [facility] Influenza High Dose 2018-04-24 00:00:00 Completed [facility] Influenza High Dose 2018-04-24 00:00:00 Completed [facility] Influenza High Dose 2018-04-24 00:00:00 Completed [facility] Influenza High Dose 2018-04-24 00:00:00 Completed [facility] Influenza High Dose 2018-04-24 00:00:00 Completed [facility] Influenza High Dose 2018-04-24 00:00:00 Completed [facility] Influenza High Dose 2018-04-24 00:00:00 Completed [facility] Influenza High Dose 2018-04-24 00:00:00 Completed [facility] Influenza High Dose 2018-04-24 00:00:00 Completed [facility] Influenza High Dose 2018-04-24 00:00:00 Completed [facility] Influenza High Dose 2018-04-24 00:00:00 Completed [facility] Influenza High Dose 2018-04-24 00:00:00 Completed [facility] Influenza High Dose 2018-04-24 00:00:00 Completed [facility] Influenza High Dose 2018-04-24 00:00:00 Completed [facility] Influenza High Dose 2018-04-24 00:00:00 Completed [facility] Influenza High Dose 2018-04-24 00:00:00 Completed [facility] Influenza High Dose 2018-04-24 00:00:00 Completed [facility] Influenza High Dose 2018-04-24 00:00:00 Completed [facility] Influenza High Dose 2018-04-24 00:00:00 Completed [facility] Influenza High Dose 2018-04-24 00:00:00 Completed [facility] Influenza High Dose 2018-04-24 00:00:00 Completed [facility] Influenza High Dose 2018-04-24 00:00:00 Completed [facility] Influenza High Dose 2018-04-24 00:00:00 Completed [facility] Influenza High Dose 2018-04-24 00:00:00 Completed [facility] Influenza High Dose 2018-04-24 00:00:00 Completed [facility] Influenza High Dose 2018-04-24 00:00:00 Completed [facility] Influenza High Dose 2018-04-24 00:00:00 Completed [facility] Influenza High Dose 2018-04-24 00:00:00 Completed [facility] Influenza High Dose 2018-04-24 00:00:00 Completed [facility] Influenza High Dose 2018-04-24 00:00:00 Completed [facility] Influenza High Dose 2018-04-24 00:00:00 Completed [facility] Influenza High Dose 2018-04-24 00:00:00 Completed [facility] Influenza High Dose 2018-04-24 00:00:00 Completed [facility] Influenza High Dose 2018-04-24 00:00:00 Completed [facility] Influenza High Dose 2018-04-24 00:00:00 Completed [facility] Influenza High Dose 2018-04-24 00:00:00 Completed [facility] Influenza High Dose 2018-04-24 00:00:00 Completed [facility] Influenza High Dose 2018-04-24 00:00:00 Completed [facility] Influenza High Dose 2018-04-24 00:00:00 Completed [facility] Influenza High Dose 2018-04-24 00:00:00 Completed [facility] Influenza High Dose 2018-04-24 00:00:00 Completed [facility] Influenza High Dose 2018-04-24 00:00:00 Completed [facility] Influenza High Dose 2018-04-24 00:00:00 Completed [facility] Influenza High Dose 2018-04-24 00:00:00 Completed [facility] Influenza High Dose 2018-04-24 00:00:00 Completed [facility] Influenza High Dose 2018-04-24 00:00:00 Completed [facility] Influenza High Dose 2018-04-24 00:00:00 Completed [facility] Influenza High Dose 2018-04-24 00:00:00 Completed [facility] Influenza High Dose 2018-04-24 00:00:00 Completed [facility] Influenza High Dose 2018-04-24 00:00:00 Completed [facility] Influenza High Dose 2018-04-24 00:00:00 Completed [facility] Influenza High Dose 2018-04-24 00:00:00 Completed [facility] Influenza High Dose 2018-04-24 00:00:00 Completed [facility] Influenza High Dose 2018-04-24 00:00:00 Completed [facility] Influenza High Dose 2018-04-24 00:00:00 Completed [facility] Influenza High Dose 2018-04-24 00:00:00 Completed [facility] Influenza High Dose 2018-04-24 00:00:00 Completed [facility] Influenza High Dose 2018-04-24 00:00:00 Completed [facility] Influenza High Dose 2018-04-24 00:00:00 Completed [facility] Influenza High Dose 2018-04-24 00:00:00 Completed [facility] Influenza High Dose 2018-04-24 00:00:00 Completed [facility] Influenza High Dose 2018-04-24 00:00:00 Completed [facility] Influenza High Dose 2018-04-24 00:00:00 Completed [facility] Influenza High Dose 2018-04-24 00:00:00 Completed [facility] Influenza High Dose 2018-04-24 00:00:00 Completed [facility] Influenza High Dose 2018-04-24 00:00:00 Completed [facility] Influenza High Dose 2018-04-24 00:00:00 Completed [facility] Influenza High Dose 2018-04-24 00:00:00 Completed [facility] Influenza High Dose 2018-04-24 00:00:00 Completed [facility] Influenza High Dose 2018-04-24 00:00:00 Completed [facility] Influenza High Dose 2018-04-24 00:00:00 Completed [facility] Influenza High Dose 2018-04-24 00:00:00 Completed [facility] Influenza High Dose 2018-04-24 00:00:00 Completed [facility] Influenza High Dose 2018-04-24 00:00:00 Completed [facility] Influenza High Dose 2018-04-24 00:00:00 Completed [facility] Influenza High Dose 2018-04-24 00:00:00 Completed [facility] Influenza High Dose 2018-04-24 00:00:00 Completed [facility] Influenza High Dose 2018-04-24 00:00:00 Completed [facility] Influenza High Dose 2018-04-24 00:00:00 Completed [facility] Influenza High Dose 2018-04-24 00:00:00 Completed [facility] Influenza High Dose 2018-04-24 00:00:00 Completed [facility] Influenza High Dose 2018-04-24 00:00:00 Completed [facility] Influenza High Dose 2018-04-24 00:00:00 Completed [facility] Influenza High Dose 2018-04-24 00:00:00 Completed [facility] Influenza High Dose 2018-04-24 00:00:00 Completed [facility] Influenza, High-Dose, Trivalent, PF (FLUZONE) 2018-04-24 00:00:00 Completed Influenza, High-Dose, Trivalent, PF (FLUZONE) 2018-04-24 00:00:00 Completed Influenza, High-Dose, Trivalent, PF (FLUZONE) 2018-04-24 00:00:00 Completed Pneumococcal Polysaccharide, PPSV23 (PNEUMOVAX) 2017-10-03 00:00:00 Completed [facility] Pneumococcal Polysaccharide, PPSV23 (PNEUMOVAX) 2017-10-03 00:00:00 Completed [facility] Pneumococcal Polysaccharide, PPSV23 (PNEUMOVAX) 2017-10-03 00:00:00 Completed [facility] Pneumococcal Polysaccharide, PPSV23 (PNEUMOVAX) 2017-10-03 00:00:00 Completed [facility] Pneumococcal Polysaccharide, PPSV23 (PNEUMOVAX) 2017-10-03 00:00:00 Completed [facility] Pneumococcal Polysaccharide, PPSV23 (PNEUMOVAX) 2017-10-03 00:00:00 Completed [facility] Pneumococcal Polysaccharide, PPSV23 (PNEUMOVAX) 2017-10-03 00:00:00 Completed [facility] Pneumococcal Polysaccharide, PPSV23 (PNEUMOVAX) 2017-10-03 00:00:00 Completed [facility] Pneumococcal Polysaccharide, PPSV23 (PNEUMOVAX) 2017-10-03 00:00:00 Completed [facility] Pneumococcal Polysaccharide, PPSV23 (PNEUMOVAX) 2017-10-03 00:00:00 Completed [facility] Pneumococcal Polysaccharide, PPSV23 (PNEUMOVAX) 2017-10-03 00:00:00 Completed [facility] Pneumococcal Polysaccharide, PPSV23 (PNEUMOVAX) 2017-10-03 00:00:00 Completed [facility] Pneumococcal Polysaccharide, PPSV23 (PNEUMOVAX) 2017-10-03 00:00:00 Completed [facility] Pneumococcal Polysaccharide, PPSV23 (PNEUMOVAX) 2017-10-03 00:00:00 Completed [facility] Pneumococcal Polysaccharide, PPSV23 (PNEUMOVAX) 2017-10-03 00:00:00 Completed [facility] Pneumococcal Polysaccharide, PPSV23 (PNEUMOVAX) 2017-10-03 00:00:00 Completed [facility] Pneumococcal Polysaccharide, PPSV23 (PNEUMOVAX) 2017-10-03 00:00:00 Completed [facility] Pneumococcal Polysaccharide, PPSV23 (PNEUMOVAX) 2017-10-03 00:00:00 Completed [facility] Pneumococcal Polysaccharide, PPSV23 (PNEUMOVAX) 2017-10-03 00:00:00 Completed [facility] Pneumococcal Polysaccharide, PPSV23 (PNEUMOVAX) 2017-10-03 00:00:00 Completed [facility] Pneumococcal Polysaccharide, PPSV23 (PNEUMOVAX) 2017-10-03 00:00:00 Completed [facility] Pneumococcal Polysaccharide, PPSV23 (PNEUMOVAX) 2017-10-03 00:00:00 Completed [facility] Pneumococcal Polysaccharide, PPSV23 (PNEUMOVAX) 2017-10-03 00:00:00 Completed [facility] Pneumococcal Polysaccharide, PPSV23 (PNEUMOVAX) 2017-10-03 00:00:00 Completed [facility] Pneumococcal Polysaccharide, PPSV23 (PNEUMOVAX) 2017-10-03 00:00:00 Completed [facility] Pneumococcal Polysaccharide, PPSV23 (PNEUMOVAX) 2017-10-03 00:00:00 Completed [facility] Pneumococcal Polysaccharide, PPSV23 (PNEUMOVAX) 2017-10-03 00:00:00 Completed [facility] Pneumococcal Polysaccharide, PPSV23 (PNEUMOVAX) 2017-10-03 00:00:00 Completed [facility] Pneumococcal Polysaccharide, PPSV23 (PNEUMOVAX) 2017-10-03 00:00:00 Completed [facility] Pneumococcal Polysaccharide, PPSV23 (PNEUMOVAX) 2017-10-03 00:00:00 Completed [facility] Pneumococcal Polysaccharide, PPSV23 (PNEUMOVAX) 2017-10-03 00:00:00 Completed [facility] Pneumococcal Polysaccharide, PPSV23 (PNEUMOVAX) 2017-10-03 00:00:00 Completed [facility] Pneumococcal Polysaccharide, PPSV23 (PNEUMOVAX) 2017-10-03 00:00:00 Completed [facility] Pneumococcal Polysaccharide, PPSV23 (PNEUMOVAX) 2017-10-03 00:00:00 Completed [facility] Pneumococcal Polysaccharide, PPSV23 (PNEUMOVAX) 2017-10-03 00:00:00 Completed [facility] Pneumococcal Polysaccharide, PPSV23 (PNEUMOVAX) 2017-10-03 00:00:00 Completed [facility] Pneumococcal Polysaccharide, PPSV23 (PNEUMOVAX) 2017-10-03 00:00:00 Completed [facility] Pneumococcal Polysaccharide, PPSV23 (PNEUMOVAX) 2017-10-03 00:00:00 Completed [facility] Pneumococcal Polysaccharide, PPSV23 (PNEUMOVAX) 2017-10-03 00:00:00 Completed [facility] Pneumococcal Polysaccharide, PPSV23 (PNEUMOVAX) 2017-10-03 00:00:00 Completed [facility] Pneumococcal Polysaccharide, PPSV23 (PNEUMOVAX) 2017-10-03 00:00:00 Completed [facility] Pneumococcal Polysaccharide, PPSV23 (PNEUMOVAX) 2017-10-03 00:00:00 Completed [facility] Pneumococcal Polysaccharide, PPSV23 (PNEUMOVAX) 2017-10-03 00:00:00 Completed [facility] Pneumococcal Polysaccharide, PPSV23 (PNEUMOVAX) 2017-10-03 00:00:00 Completed [facility] Pneumococcal Polysaccharide, PPSV23 (PNEUMOVAX) 2017-10-03 00:00:00 Completed [facility] Pneumococcal Polysaccharide, PPSV23 (PNEUMOVAX) 2017-10-03 00:00:00 Completed [facility] Pneumococcal Polysaccharide, PPSV23 (PNEUMOVAX) 2017-10-03 00:00:00 Completed [facility] Pneumococcal Polysaccharide, PPSV23 (PNEUMOVAX) 2017-10-03 00:00:00 Completed [facility] Pneumococcal Polysaccharide, PPSV23 (PNEUMOVAX) 2017-10-03 00:00:00 Completed [facility] Pneumococcal Polysaccharide, PPSV23 (PNEUMOVAX) 2017-10-03 00:00:00 Completed [facility] Pneumococcal Polysaccharide, PPSV23 (PNEUMOVAX) 2017-10-03 00:00:00 Completed [facility] Pneumococcal Polysaccharide, PPSV23 (PNEUMOVAX) 2017-10-03 00:00:00 Completed [facility] Pneumococcal Polysaccharide, PPSV23 (PNEUMOVAX) 2017-10-03 00:00:00 Completed [facility] Pneumococcal Polysaccharide, PPSV23 (PNEUMOVAX) 2017-10-03 00:00:00 Completed [facility] Pneumococcal Polysaccharide, PPSV23 (PNEUMOVAX) 2017-10-03 00:00:00 Completed [facility] Pneumococcal Polysaccharide, PPSV23 (PNEUMOVAX) 2017-10-03 00:00:00 Completed [facility] Pneumococcal Polysaccharide, PPSV23 (PNEUMOVAX) 2017-10-03 00:00:00 Completed [facility] Pneumococcal Polysaccharide, PPSV23 (PNEUMOVAX) 2017-10-03 00:00:00 Completed [facility] Pneumococcal Polysaccharide, PPSV23 (PNEUMOVAX) 2017-10-03 00:00:00 Completed [facility] Pneumococcal Polysaccharide, PPSV23 (PNEUMOVAX) 2017-10-03 00:00:00 Completed [facility] Pneumococcal Polysaccharide, PPSV23 (PNEUMOVAX) 2017-10-03 00:00:00 Completed [facility] Pneumococcal Polysaccharide, PPSV23 (PNEUMOVAX) 2017-10-03 00:00:00 Completed [facility] Pneumococcal Polysaccharide, PPSV23 (PNEUMOVAX) 2017-10-03 00:00:00 Completed [facility] Pneumococcal Polysaccharide, PPSV23 (PNEUMOVAX) 2017-10-03 00:00:00 Completed [facility] Pneumococcal Polysaccharide, PPSV23 (PNEUMOVAX) 2017-10-03 00:00:00 Completed [facility] Pneumococcal Polysaccharide, PPSV23 (PNEUMOVAX) 2017-10-03 00:00:00 Completed [facility] Pneumococcal Polysaccharide, PPSV23 (PNEUMOVAX) 2017-10-03 00:00:00 Completed [facility] Pneumococcal Polysaccharide, PPSV23 (PNEUMOVAX) 2017-10-03 00:00:00 Completed [facility] Pneumococcal Polysaccharide, PPSV23 (PNEUMOVAX) 2017-10-03 00:00:00 Completed [facility] Pneumococcal Polysaccharide, PPSV23 (PNEUMOVAX) 2017-10-03 00:00:00 Completed [facility] Pneumococcal Polysaccharide, PPSV23 (PNEUMOVAX) 2017-10-03 00:00:00 Completed [facility] Pneumococcal Polysaccharide, PPSV23 (PNEUMOVAX) 2017-10-03 00:00:00 Completed [facility] Pneumococcal Polysaccharide, PPSV23 (PNEUMOVAX) 2017-10-03 00:00:00 Completed [facility] Pneumococcal Polysaccharide, PPSV23 (PNEUMOVAX) 2017-10-03 00:00:00 Completed [facility] Pneumococcal Polysaccharide, PPSV23 (PNEUMOVAX) 2017-10-03 00:00:00 Completed [facility] Pneumococcal Polysaccharide, PPSV23 (PNEUMOVAX) 2017-10-03 00:00:00 Completed [facility] Pneumococcal Polysaccharide, PPSV23 (PNEUMOVAX) 2017-10-03 00:00:00 Completed [facility] Pneumococcal Polysaccharide, PPSV23 (PNEUMOVAX) 2017-10-03 00:00:00 Completed [facility] Pneumococcal Polysaccharide, PPSV23 (PNEUMOVAX) 2017-10-03 00:00:00 Completed [facility] Pneumococcal Polysaccharide, PPSV23 (PNEUMOVAX) 2017-10-03 00:00:00 Completed [facility] Pneumococcal Polysaccharide, PPSV23 (PNEUMOVAX) 2017-10-03 00:00:00 Completed [facility] Pneumococcal Polysaccharide, PPSV23 (PNEUMOVAX) 2017-10-03 00:00:00 Completed [facility] Pneumococcal Polysaccharide, PPSV23 (PNEUMOVAX) 2017-10-03 00:00:00 Completed [facility] Pneumococcal Polysaccharide, PPSV23 (PNEUMOVAX) 2017-10-03 00:00:00 Completed [facility] Pneumococcal Polysaccharide, PPSV23 (PNEUMOVAX) 2017-10-03 00:00:00 Completed [facility] Pneumococcal Polysaccharide, PPSV23 (PNEUMOVAX) 2017-10-03 00:00:00 Completed [facility] Pneumococcal Polysaccharide, PPSV23 (PNEUMOVAX) 2017-10-03 00:00:00 Completed [facility] Pneumococcal Polysaccharide, PPSV23 (PNEUMOVAX) 2017-10-03 00:00:00 Completed [facility] Pneumococcal Polysaccharide, PPSV23 (PNEUMOVAX) 2017-10-03 00:00:00 Completed [facility] Pneumococcal Polysaccharide, PPSV23 (PNEUMOVAX) 2017-10-03 00:00:00 Completed [facility] Pneumococcal Polysaccharide, PPSV23 (PNEUMOVAX) 2017-10-03 00:00:00 Completed [facility] Pneumococcal Polysaccharide, PPSV23 (PNEUMOVAX) 2017-10-03 00:00:00 Completed [facility] Pneumococcal Polysaccharide, PPSV23 (PNEUMOVAX) 2017-10-03 00:00:00 Completed [facility] Pneumococcal Polysaccharide, PPSV23 (PNEUMOVAX) 2017-10-03 00:00:00 Completed [facility] Pneumococcal Polysaccharide, PPSV23 (PNEUMOVAX) 2017-10-03 00:00:00 Completed [facility] Pneumococcal Polysaccharide, PPSV23 (PNEUMOVAX) 2017-10-03 00:00:00 Completed [facility] Pneumococcal Polysaccharide, PPSV23 (PNEUMOVAX) 2017-10-03 00:00:00 Completed [facility] Pneumococcal Polysaccharide, PPSV23 (PNEUMOVAX) 2017-10-03 00:00:00 Completed [facility] Pneumococcal Polysaccharide, PPSV23 (PNEUMOVAX) 2017-10-03 00:00:00 Completed [facility] Pneumococcal Polysaccharide, PPSV23 (PNEUMOVAX) 2017-10-03 00:00:00 Completed [facility] Pneumococcal Polysaccharide, PPSV23 (PNEUMOVAX) 2017-10-03 00:00:00 Completed [facility] Pneumococcal Polysaccharide, PPSV23 (PNEUMOVAX) 2017-10-03 00:00:00 Completed [facility] Pneumococcal Polysaccharide, PPSV23 (PNEUMOVAX) 2017-10-03 00:00:00 Completed [facility] Pneumococcal Polysaccharide, PPSV23 (PNEUMOVAX) 2017-10-03 00:00:00 Completed [facility] Pneumococcal Polysaccharide, PPSV23 (PNEUMOVAX) 2017-10-03 00:00:00 Completed [facility] Pneumococcal Polysaccharide, PPSV23 (PNEUMOVAX) 2017-10-03 00:00:00 Completed [facility] Pneumococcal Polysaccharide, PPSV23 (PNEUMOVAX) 2017-10-03 00:00:00 Completed [facility] Pneumococcal Polysaccharide, PPSV23 (PNEUMOVAX) 2017-10-03 00:00:00 Completed [facility] Pneumococcal Polysaccharide, PPSV23 (PNEUMOVAX) 2017-10-03 00:00:00 Completed [facility] Pneumococcal Polysaccharide, PPSV23 (PNEUMOVAX) 2017-10-03 00:00:00 Completed [facility] Pneumococcal Polysaccharide, PPSV23 (PNEUMOVAX) 2017-10-03 00:00:00 Completed [facility] Pneumococcal Polysaccharide, PPSV23 (PNEUMOVAX) 2017-10-03 00:00:00 Completed [facility] Pneumococcal Polysaccharide, PPSV23 (PNEUMOVAX) 2017-10-03 00:00:00 Completed [facility] Pneumococcal Polysaccharide, PPSV23 (PNEUMOVAX) 2017-10-03 00:00:00 Completed [facility] Pneumococcal Polysaccharide, PPSV23 (PNEUMOVAX) 2017-10-03 00:00:00 Completed [facility] Pneumococcal Polysaccharide, PPSV23 (PNEUMOVAX) 2017-10-03 00:00:00 Completed [facility] Pneumococcal Polysaccharide, PPSV23 (PNEUMOVAX) 2017-10-03 00:00:00 Completed [facility] Pneumococcal Polysaccharide, PPSV23 (PNEUMOVAX) 2017-10-03 00:00:00 Completed [facility] Pneumococcal Polysaccharide, PPSV23 (PNEUMOVAX) 2017-10-03 00:00:00 Completed [facility] Pneumococcal Polysaccharide, PPSV23 (PNEUMOVAX) 2017-10-03 00:00:00 Completed [facility] Pneumococcal Polysaccharide, PPSV23 (PNEUMOVAX) 2017-10-03 00:00:00 Completed [facility] Pneumococcal Polysaccharide, PPSV23 (PNEUMOVAX) 2017-10-03 00:00:00 Completed [facility] Pneumococcal Polysaccharide, PPSV23 (PNEUMOVAX) 2017-10-03 00:00:00 Completed [facility] Pneumococcal Polysaccharide, PPSV23 (PNEUMOVAX) 2017-10-03 00:00:00 Completed [facility] Pneumococcal Polysaccharide, PPSV23 (PNEUMOVAX) 2017-10-03 00:00:00 Completed [facility] Pneumococcal Polysaccharide, PPSV23 (PNEUMOVAX) 2017-10-03 00:00:00 Completed [facility] Pneumococcal Unspecified 2017-10-03 00:00:00 Completed [facility] Pneumococcal Polysaccharide, PPSV23 (PNEUMOVAX) 2017-10-03 00:00:00 Completed Pneumococcal Polysaccharide, PPSV23 (PNEUMOVAX) 2017-10-03 00:00:00 Completed Pneumococcal Unspecified 2017-10-03 00:00:00 Completed [facility] Pneumococcal Polysaccharide, PPSV23 (PNEUMOVAX) 2017-10-03 00:00:00 Completed Pneumococcal Unspecified 2017-10-03 00:00:00 Completed [facility] Influenza High Dose 2017-04-13 00:00:00 Completed [facility] Influenza High Dose 2017-04-13 00:00:00 Completed [facility] Influenza High Dose 2017-04-13 00:00:00 Completed [facility] Influenza High Dose 2017-04-13 00:00:00 Completed [facility] Influenza High Dose 2017-04-13 00:00:00 Completed [facility] Influenza High Dose 2017-04-13 00:00:00 Completed [facility] Influenza High Dose 2017-04-13 00:00:00 Completed [facility] Influenza High Dose 2017-04-13 00:00:00 Completed [facility] Influenza High Dose 2017-04-13 00:00:00 Completed [facility] Influenza High Dose 2017-04-13 00:00:00 Completed [facility] Influenza High Dose 2017-04-13 00:00:00 Completed [facility] Influenza High Dose 2017-04-13 00:00:00 Completed [facility] Influenza High Dose 2017-04-13 00:00:00 Completed [facility] Influenza High Dose 2017-04-13 00:00:00 Completed [facility] Influenza High Dose 2017-04-13 00:00:00 Completed [facility] Influenza High Dose 2017-04-13 00:00:00 Completed [facility] Influenza High Dose 2017-04-13 00:00:00 Completed [facility] Influenza High Dose 2017-04-13 00:00:00 Completed [facility] Influenza High Dose 2017-04-13 00:00:00 Completed [facility] Influenza High Dose 2017-04-13 00:00:00 Completed [facility] Influenza High Dose 2017-04-13 00:00:00 Completed [facility] Influenza High Dose 2017-04-13 00:00:00 Completed [facility] Influenza High Dose 2017-04-13 00:00:00 Completed [facility] Influenza High Dose 2017-04-13 00:00:00 Completed [facility] Influenza High Dose 2017-04-13 00:00:00 Completed [facility] Influenza High Dose 2017-04-13 00:00:00 Completed [facility] Influenza High Dose 2017-04-13 00:00:00 Completed [facility] Influenza High Dose 2017-04-13 00:00:00 Completed [facility] Influenza High Dose 2017-04-13 00:00:00 Completed [facility] Influenza High Dose 2017-04-13 00:00:00 Completed [facility] Influenza High Dose 2017-04-13 00:00:00 Completed [facility] Influenza High Dose 2017-04-13 00:00:00 Completed [facility] Influenza High Dose 2017-04-13 00:00:00 Completed [facility] Influenza High Dose 2017-04-13 00:00:00 Completed [facility] Influenza High Dose 2017-04-13 00:00:00 Completed [facility] Influenza High Dose 2017-04-13 00:00:00 Completed [facility] Influenza High Dose 2017-04-13 00:00:00 Completed [facility] Influenza High Dose 2017-04-13 00:00:00 Completed [facility] Influenza High Dose 2017-04-13 00:00:00 Completed [facility] Influenza High Dose 2017-04-13 00:00:00 Completed [facility] Influenza High Dose 2017-04-13 00:00:00 Completed [facility] Influenza High Dose 2017-04-13 00:00:00 Completed [facility] Influenza High Dose 2017-04-13 00:00:00 Completed [facility] Influenza High Dose 2017-04-13 00:00:00 Completed [facility] Influenza High Dose 2017-04-13 00:00:00 Completed [facility] Influenza High Dose 2017-04-13 00:00:00 Completed [facility] Influenza High Dose 2017-04-13 00:00:00 Completed [facility] Influenza High Dose 2017-04-13 00:00:00 Completed [facility] Influenza High Dose 2017-04-13 00:00:00 Completed [facility] Influenza High Dose 2017-04-13 00:00:00 Completed [facility] Influenza High Dose 2017-04-13 00:00:00 Completed [facility] Influenza High Dose 2017-04-13 00:00:00 Completed [facility] Influenza High Dose 2017-04-13 00:00:00 Completed [facility] Influenza High Dose 2017-04-13 00:00:00 Completed [facility] Influenza High Dose 2017-04-13 00:00:00 Completed [facility] Influenza High Dose 2017-04-13 00:00:00 Completed [facility] Influenza High Dose 2017-04-13 00:00:00 Completed [facility] Influenza High Dose 2017-04-13 00:00:00 Completed [facility] Influenza High Dose 2017-04-13 00:00:00 Completed [facility] Influenza High Dose 2017-04-13 00:00:00 Completed [facility] Influenza High Dose 2017-04-13 00:00:00 Completed [facility] Influenza High Dose 2017-04-13 00:00:00 Completed [facility] Influenza High Dose 2017-04-13 00:00:00 Completed [facility] Influenza High Dose 2017-04-13 00:00:00 Completed [facility] Influenza High Dose 2017-04-13 00:00:00 Completed [facility] Influenza High Dose 2017-04-13 00:00:00 Completed [facility] Influenza High Dose 2017-04-13 00:00:00 Completed [facility] Influenza High Dose 2017-04-13 00:00:00 Completed [facility] Influenza High Dose 2017-04-13 00:00:00 Completed [facility] Influenza High Dose 2017-04-13 00:00:00 Completed [facility] Influenza High Dose 2017-04-13 00:00:00 Completed [facility] Influenza High Dose 2017-04-13 00:00:00 Completed [facility] Influenza High Dose 2017-04-13 00:00:00 Completed [facility] Influenza High Dose 2017-04-13 00:00:00 Completed [facility] Influenza High Dose 2017-04-13 00:00:00 Completed [facility] Influenza High Dose 2017-04-13 00:00:00 Completed [facility] Influenza High Dose 2017-04-13 00:00:00 Completed [facility] Influenza High Dose 2017-04-13 00:00:00 Completed [facility] Influenza High Dose 2017-04-13 00:00:00 Completed [facility] Influenza High Dose 2017-04-13 00:00:00 Completed [facility] Influenza High Dose 2017-04-13 00:00:00 Completed [facility] Influenza High Dose 2017-04-13 00:00:00 Completed [facility] Influenza High Dose 2017-04-13 00:00:00 Completed [facility] Influenza High Dose 2017-04-13 00:00:00 Completed [facility] Influenza High Dose 2017-04-13 00:00:00 Completed [facility] Influenza High Dose 2017-04-13 00:00:00 Completed [facility] Influenza High Dose 2017-04-13 00:00:00 Completed [facility] Influenza High Dose 2017-04-13 00:00:00 Completed [facility] Influenza High Dose 2017-04-13 00:00:00 Completed [facility] Influenza High Dose 2017-04-13 00:00:00 Completed [facility] Influenza High Dose 2017-04-13 00:00:00 Completed [facility] Influenza High Dose 2017-04-13 00:00:00 Completed [facility] Influenza High Dose 2017-04-13 00:00:00 Completed [facility] Influenza High Dose 2017-04-13 00:00:00 Completed [facility] Influenza High Dose 2017-04-13 00:00:00 Completed [facility] Influenza High Dose 2017-04-13 00:00:00 Completed [facility] Influenza High Dose 2017-04-13 00:00:00 Completed [facility] Influenza High Dose 2017-04-13 00:00:00 Completed [facility] Influenza High Dose 2017-04-13 00:00:00 Completed [facility] Influenza High Dose 2017-04-13 00:00:00 Completed [facility] Influenza High Dose 2017-04-13 00:00:00 Completed [facility] Influenza High Dose 2017-04-13 00:00:00 Completed [facility] Influenza High Dose 2017-04-13 00:00:00 Completed [facility] Influenza High Dose 2017-04-13 00:00:00 Completed [facility] Influenza High Dose 2017-04-13 00:00:00 Completed [facility] Influenza High Dose 2017-04-13 00:00:00 Completed [facility] Influenza High Dose 2017-04-13 00:00:00 Completed [facility] Influenza High Dose 2017-04-13 00:00:00 Completed [facility] Influenza High Dose 2017-04-13 00:00:00 Completed [facility] Influenza High Dose 2017-04-13 00:00:00 Completed [facility] Influenza High Dose 2017-04-13 00:00:00 Completed [facility] Influenza High Dose 2017-04-13 00:00:00 Completed [facility] Influenza High Dose 2017-04-13 00:00:00 Completed [facility] Influenza High Dose 2017-04-13 00:00:00 Completed [facility] Influenza High Dose 2017-04-13 00:00:00 Completed [facility] Influenza High Dose 2017-04-13 00:00:00 Completed [facility] Influenza High Dose 2017-04-13 00:00:00 Completed [facility] Influenza High Dose 2017-04-13 00:00:00 Completed [facility] Influenza High Dose 2017-04-13 00:00:00 Completed [facility] Influenza High Dose 2017-04-13 00:00:00 Completed [facility] Influenza High Dose 2017-04-13 00:00:00 Completed [facility] Influenza High Dose 2017-04-13 00:00:00 Completed [facility] Influenza High Dose 2017-04-13 00:00:00 Completed [facility] Influenza High Dose 2017-04-13 00:00:00 Completed [facility] Influenza High Dose 2017-04-13 00:00:00 Completed [facility] Influenza High Dose 2017-04-13 00:00:00 Completed [facility] Influenza, High-Dose, Trivalent, PF (FLUZONE) 2017-04-13 00:00:00 Completed Influenza, High-Dose, Trivalent, PF (FLUZONE) 2017-04-13 00:00:00 Completed Influenza, High-Dose, Trivalent, PF (FLUZONE) 2017-04-13 00:00:00 Completed Pneumococcal 13 Conjugate, PCV13 (Prevnar 13) 2016-07-12 00:00:00 Completed [facility] Influenza High Dose 2016-07-12 00:00:00 Completed [facility] Pneumococcal Polysaccharide, PPSV23 (PNEUMOVAX) 2016-07-12 00:00:00 Completed [facility] Pneumococcal 13 Conjugate, PCV13 (Prevnar 13) 2016-07-12 00:00:00 Completed [facility] Influenza High Dose 2016-07-12 00:00:00 Completed [facility] Pneumococcal Polysaccharide, PPSV23 (PNEUMOVAX) 2016-07-12 00:00:00 Completed [facility] Pneumococcal 13 Conjugate, PCV13 (Prevnar 13) 2016-07-12 00:00:00 Completed [facility] Influenza High Dose 2016-07-12 00:00:00 Completed [facility] Pneumococcal Polysaccharide, PPSV23 (PNEUMOVAX) 2016-07-12 00:00:00 Completed [facility] Pneumococcal 13 Conjugate, PCV13 (Prevnar 13) 2016-07-12 00:00:00 Completed [facility] Influenza High Dose 2016-07-12 00:00:00 Completed [facility] Pneumococcal Polysaccharide, PPSV23 (PNEUMOVAX) 2016-07-12 00:00:00 Completed [facility] Pneumococcal 13 Conjugate, PCV13 (Prevnar 13) 2016-07-12 00:00:00 Completed [facility] Influenza High Dose 2016-07-12 00:00:00 Completed [facility] Pneumococcal Polysaccharide, PPSV23 (PNEUMOVAX) 2016-07-12 00:00:00 Completed [facility] Pneumococcal 13 Conjugate, PCV13 (Prevnar 13) 2016-07-12 00:00:00 Completed [facility] Influenza High Dose 2016-07-12 00:00:00 Completed [facility] Pneumococcal Polysaccharide, PPSV23 (PNEUMOVAX) 2016-07-12 00:00:00 Completed [facility] Pneumococcal 13 Conjugate, PCV13 (Prevnar 13) 2016-07-12 00:00:00 Completed [facility] Influenza High Dose 2016-07-12 00:00:00 Completed [facility] Pneumococcal Polysaccharide, PPSV23 (PNEUMOVAX) 2016-07-12 00:00:00 Completed [facility] Pneumococcal 13 Conjugate, PCV13 (Prevnar 13) 2016-07-12 00:00:00 Completed [facility] Influenza High Dose 2016-07-12 00:00:00 Completed [facility] Pneumococcal Polysaccharide, PPSV23 (PNEUMOVAX) 2016-07-12 00:00:00 Completed [facility] Pneumococcal 13 Conjugate, PCV13 (Prevnar 13) 2016-07-12 00:00:00 Completed [facility] Influenza High Dose 2016-07-12 00:00:00 Completed [facility] Pneumococcal Polysaccharide, PPSV23 (PNEUMOVAX) 2016-07-12 00:00:00 Completed [facility] Pneumococcal 13 Conjugate, PCV13 (Prevnar 13) 2016-07-12 00:00:00 Completed [facility] Influenza High Dose 2016-07-12 00:00:00 Completed [facility] Pneumococcal Polysaccharide, PPSV23 (PNEUMOVAX) 2016-07-12 00:00:00 Completed [facility] Pneumococcal 13 Conjugate, PCV13 (Prevnar 13) 2016-07-12 00:00:00 Completed [facility] Influenza High Dose 2016-07-12 00:00:00 Completed [facility] Pneumococcal Polysaccharide, PPSV23 (PNEUMOVAX) 2016-07-12 00:00:00 Completed [facility] Pneumococcal 13 Conjugate, PCV13 (Prevnar 13) 2016-07-12 00:00:00 Completed [facility] Influenza High Dose 2016-07-12 00:00:00 Completed [facility] Pneumococcal Polysaccharide, PPSV23 (PNEUMOVAX) 2016-07-12 00:00:00 Completed [facility] Pneumococcal 13 Conjugate, PCV13 (Prevnar 13) 2016-07-12 00:00:00 Completed [facility] Influenza High Dose 2016-07-12 00:00:00 Completed [facility] Pneumococcal Polysaccharide, PPSV23 (PNEUMOVAX) 2016-07-12 00:00:00 Completed [facility] Pneumococcal 13 Conjugate, PCV13 (Prevnar 13) 2016-07-12 00:00:00 Completed [facility] Influenza High Dose 2016-07-12 00:00:00 Completed [facility] Pneumococcal Polysaccharide, PPSV23 (PNEUMOVAX) 2016-07-12 00:00:00 Completed [facility] Pneumococcal 13 Conjugate, PCV13 (Prevnar 13) 2016-07-12 00:00:00 Completed [facility] Influenza High Dose 2016-07-12 00:00:00 Completed [facility] Pneumococcal Polysaccharide, PPSV23 (PNEUMOVAX) 2016-07-12 00:00:00 Completed [facility] Pneumococcal 13 Conjugate, PCV13 (Prevnar 13) 2016-07-12 00:00:00 Completed [facility] Influenza High Dose 2016-07-12 00:00:00 Completed [facility] Pneumococcal Polysaccharide, PPSV23 (PNEUMOVAX) 2016-07-12 00:00:00 Completed [facility] Pneumococcal 13 Conjugate, PCV13 (Prevnar 13) 2016-07-12 00:00:00 Completed [facility] Influenza High Dose 2016-07-12 00:00:00 Completed [facility] Pneumococcal Polysaccharide, PPSV23 (PNEUMOVAX) 2016-07-12 00:00:00 Completed [facility] Pneumococcal 13 Conjugate, PCV13 (Prevnar 13) 2016-07-12 00:00:00 Completed [facility] Influenza High Dose 2016-07-12 00:00:00 Completed [facility] Pneumococcal Polysaccharide, PPSV23 (PNEUMOVAX) 2016-07-12 00:00:00 Completed [facility] Pneumococcal 13 Conjugate, PCV13 (Prevnar 13) 2016-07-12 00:00:00 Completed [facility] Influenza High Dose 2016-07-12 00:00:00 Completed [facility] Pneumococcal Polysaccharide, PPSV23 (PNEUMOVAX) 2016-07-12 00:00:00 Completed [facility] Pneumococcal 13 Conjugate, PCV13 (Prevnar 13) 2016-07-12 00:00:00 Completed [facility] Influenza High Dose 2016-07-12 00:00:00 Completed [facility] Pneumococcal Polysaccharide, PPSV23 (PNEUMOVAX) 2016-07-12 00:00:00 Completed [facility] Pneumococcal 13 Conjugate, PCV13 (Prevnar 13) 2016-07-12 00:00:00 Completed [facility] Influenza High Dose 2016-07-12 00:00:00 Completed [facility] Pneumococcal Polysaccharide, PPSV23 (PNEUMOVAX) 2016-07-12 00:00:00 Completed [facility] Pneumococcal 13 Conjugate, PCV13 (Prevnar 13) 2016-07-12 00:00:00 Completed [facility] Influenza High Dose 2016-07-12 00:00:00 Completed [facility] Pneumococcal Polysaccharide, PPSV23 (PNEUMOVAX) 2016-07-12 00:00:00 Completed [facility] Pneumococcal 13 Conjugate, PCV13 (Prevnar 13) 2016-07-12 00:00:00 Completed [facility] Influenza High Dose 2016-07-12 00:00:00 Completed [facility] Pneumococcal Polysaccharide, PPSV23 (PNEUMOVAX) 2016-07-12 00:00:00 Completed [facility] Pneumococcal 13 Conjugate, PCV13 (Prevnar 13) 2016-07-12 00:00:00 Completed [facility] Influenza High Dose 2016-07-12 00:00:00 Completed [facility] Pneumococcal Polysaccharide, PPSV23 (PNEUMOVAX) 2016-07-12 00:00:00 Completed [facility] Pneumococcal 13 Conjugate, PCV13 (Prevnar 13) 2016-07-12 00:00:00 Completed [facility] Influenza High Dose 2016-07-12 00:00:00 Completed [facility] Pneumococcal Polysaccharide, PPSV23 (PNEUMOVAX) 2016-07-12 00:00:00 Completed [facility] Pneumococcal 13 Conjugate, PCV13 (Prevnar 13) 2016-07-12 00:00:00 Completed [facility] Influenza High Dose 2016-07-12 00:00:00 Completed [facility] Pneumococcal Polysaccharide, PPSV23 (PNEUMOVAX) 2016-07-12 00:00:00 Completed [facility] Pneumococcal 13 Conjugate, PCV13 (Prevnar 13) 2016-07-12 00:00:00 Completed [facility] Influenza High Dose 2016-07-12 00:00:00 Completed [facility] Pneumococcal Polysaccharide, PPSV23 (PNEUMOVAX) 2016-07-12 00:00:00 Completed [facility] Pneumococcal 13 Conjugate, PCV13 (Prevnar 13) 2016-07-12 00:00:00 Completed [facility] Influenza High Dose 2016-07-12 00:00:00 Completed [facility] Pneumococcal Polysaccharide, PPSV23 (PNEUMOVAX) 2016-07-12 00:00:00 Completed [facility] Pneumococcal 13 Conjugate, PCV13 (Prevnar 13) 2016-07-12 00:00:00 Completed [facility] Influenza High Dose 2016-07-12 00:00:00 Completed [facility] Pneumococcal Polysaccharide, PPSV23 (PNEUMOVAX) 2016-07-12 00:00:00 Completed [facility] Pneumococcal 13 Conjugate, PCV13 (Prevnar 13) 2016-07-12 00:00:00 Completed [facility] Influenza High Dose 2016-07-12 00:00:00 Completed [facility] Pneumococcal Polysaccharide, PPSV23 (PNEUMOVAX) 2016-07-12 00:00:00 Completed [facility] Pneumococcal 13 Conjugate, PCV13 (Prevnar 13) 2016-07-12 00:00:00 Completed [facility] Influenza High Dose 2016-07-12 00:00:00 Completed [facility] Pneumococcal Polysaccharide, PPSV23 (PNEUMOVAX) 2016-07-12 00:00:00 Completed [facility] Pneumococcal 13 Conjugate, PCV13 (Prevnar 13) 2016-07-12 00:00:00 Completed [facility] Influenza High Dose 2016-07-12 00:00:00 Completed [facility] Pneumococcal Polysaccharide, PPSV23 (PNEUMOVAX) 2016-07-12 00:00:00 [facility] [facility] Pneumococcal 13 Conjugate, PCV13 (Prevnar 13) 2016-07-12 00:00:00 Completed [facility] Influenza High Dose 2016-07-12 00:00:00 Completed [facility] Pneumococcal Polysaccharide, PPSV23 (PNEUMOVAX) 2016-07-12 00:00:00 Completed [facility] Pneumococcal 13 Conjugate, PCV13 (Prevnar 13) 2016-07-12 00:00:00 Completed [facility] Influenza High Dose 2016-07-12 00:00:00 Completed [facility] Pneumococcal Polysaccharide, PPSV23 (PNEUMOVAX) 2016-07-12 00:00:00 Completed [facility] Pneumococcal 13 Conjugate, PCV13 (Prevnar 13) 2016-07-12 00:00:00 Completed [facility] Influenza High Dose 2016-07-12 00:00:00 Completed [facility] Pneumococcal Polysaccharide, PPSV23 (PNEUMOVAX) 2016-07-12 00:00:00 Completed [facility] Pneumococcal 13 Conjugate, PCV13 (Prevnar 13) 2016-07-12 00:00:00 Completed [facility] Influenza High Dose 2016-07-12 00:00:00 Completed [facility] Pneumococcal Polysaccharide, PPSV23 (PNEUMOVAX) 2016-07-12 00:00:00 Completed [facility] Pneumococcal 13 Conjugate, PCV13 (Prevnar 13) 2016-07-12 00:00:00 Completed [facility] Influenza High Dose 2016-07-12 00:00:00 Completed [facility] Pneumococcal Polysaccharide, PPSV23 (PNEUMOVAX) 2016-07-12 00:00:00 Completed [facility] Pneumococcal 13 Conjugate, PCV13 (Prevnar 13) 2016-07-12 00:00:00 Completed [facility] Influenza High Dose 2016-07-12 00:00:00 Completed [facility] Pneumococcal Polysaccharide, PPSV23 (PNEUMOVAX) 2016-07-12 00:00:00 Completed [facility] Pneumococcal 13 Conjugate, PCV13 (Prevnar 13) 2016-07-12 00:00:00 Completed [facility] Influenza High Dose 2016-07-12 00:00:00 Completed [facility] Pneumococcal Polysaccharide, PPSV23 (PNEUMOVAX) 2016-07-12 00:00:00 Completed [facility] Pneumococcal 13 Conjugate, PCV13 (Prevnar 13) 2016-07-12 00:00:00 Completed [facility] Influenza High Dose 2016-07-12 00:00:00 Completed [facility] Pneumococcal Polysaccharide, PPSV23 (PNEUMOVAX) 2016-07-12 00:00:00 Completed [facility] Pneumococcal 13 Conjugate, PCV13 (Prevnar 13) 2016-07-12 00:00:00 Completed [facility] Influenza High Dose 2016-07-12 00:00:00 Completed [facility] Pneumococcal Polysaccharide, PPSV23 (PNEUMOVAX) 2016-07-12 00:00:00 Completed [facility] Pneumococcal 13 Conjugate, PCV13 (Prevnar 13) 2016-07-12 00:00:00 Completed [facility] Influenza High Dose 2016-07-12 00:00:00 Completed [facility] Pneumococcal Polysaccharide, PPSV23 (PNEUMOVAX) 2016-07-12 00:00:00 Completed [facility] Pneumococcal 13 Conjugate, PCV13 (Prevnar 13) 2016-07-12 00:00:00 Completed [facility] Influenza High Dose 2016-07-12 00:00:00 Completed [facility] Pneumococcal Polysaccharide, PPSV23 (PNEUMOVAX) 2016-07-12 00:00:00 Completed [facility] Pneumococcal 13 Conjugate, PCV13 (Prevnar 13) 2016-07-12 00:00:00 Completed [facility] Influenza High Dose 2016-07-12 00:00:00 Completed [facility] Pneumococcal Polysaccharide, PPSV23 (PNEUMOVAX) 2016-07-12 00:00:00 Completed [facility] Pneumococcal 13 Conjugate, PCV13 (Prevnar 13) 2016-07-12 00:00:00 Completed [facility] Influenza High Dose 2016-07-12 00:00:00 Completed [facility] Pneumococcal Polysaccharide, PPSV23 (PNEUMOVAX) 2016-07-12 00:00:00 Completed [facility] Pneumococcal 13 Conjugate, PCV13 (Prevnar 13) 2016-07-12 00:00:00 Completed [facility] Influenza High Dose 2016-07-12 00:00:00 Completed [facility] Pneumococcal Polysaccharide, PPSV23 (PNEUMOVAX) 2016-07-12 00:00:00 Completed [facility] Pneumococcal 13 Conjugate, PCV13 (Prevnar 13) 2016-07-12 00:00:00 Completed [facility] Influenza High Dose 2016-07-12 00:00:00 Completed [facility] Pneumococcal Polysaccharide, PPSV23 (PNEUMOVAX) 2016-07-12 00:00:00 Completed [facility] Pneumococcal 13 Conjugate, PCV13 (Prevnar 13) 2016-07-12 00:00:00 Completed [facility] Influenza High Dose 2016-07-12 00:00:00 Completed [facility] Pneumococcal Polysaccharide, PPSV23 (PNEUMOVAX) 2016-07-12 00:00:00 Completed [facility] Pneumococcal 13 Conjugate, PCV13 (Prevnar 13) 2016-07-12 00:00:00 Completed [facility] Influenza High Dose 2016-07-12 00:00:00 Completed [facility] Pneumococcal Polysaccharide, PPSV23 (PNEUMOVAX) 2016-07-12 00:00:00 Completed [facility] Pneumococcal 13 Conjugate, PCV13 (Prevnar 13) 2016-07-12 00:00:00 Completed [facility] Influenza High Dose 2016-07-12 00:00:00 Completed [facility] Pneumococcal Polysaccharide, PPSV23 (PNEUMOVAX) 2016-07-12 00:00:00 Completed [facility] Pneumococcal 13 Conjugate, PCV13 (Prevnar 13) 2016-07-12 00:00:00 Completed [facility] Influenza High Dose 2016-07-12 00:00:00 Completed [facility] Pneumococcal Polysaccharide, PPSV23 (PNEUMOVAX) 2016-07-12 00:00:00 Completed [facility] Pneumococcal 13 Conjugate, PCV13 (Prevnar 13) 2016-07-12 00:00:00 Completed [facility] Influenza High Dose 2016-07-12 00:00:00 Completed [facility] Pneumococcal Polysaccharide, PPSV23 (PNEUMOVAX) 2016-07-12 00:00:00 Completed [facility] Pneumococcal 13 Conjugate, PCV13 (Prevnar 13) 2016-07-12 00:00:00 Completed [facility] Influenza High Dose 2016-07-12 00:00:00 Completed [facility] Pneumococcal Polysaccharide, PPSV23 (PNEUMOVAX) 2016-07-12 00:00:00 Completed [facility] Pneumococcal 13 Conjugate, PCV13 (Prevnar 13) 2016-07-12 00:00:00 Completed [facility] Influenza High Dose 2016-07-12 00:00:00 Completed [facility] Pneumococcal Polysaccharide, PPSV23 (PNEUMOVAX) 2016-07-12 00:00:00 Completed [facility] Pneumococcal 13 Conjugate, PCV13 (Prevnar 13) 2016-07-12 00:00:00 Completed [facility] Influenza High Dose 2016-07-12 00:00:00 Completed [facility] Pneumococcal Polysaccharide, PPSV23 (PNEUMOVAX) 2016-07-12 00:00:00 Completed [facility] Pneumococcal 13 Conjugate, PCV13 (Prevnar 13) 2016-07-12 00:00:00 Completed [facility] Influenza High Dose 2016-07-12 00:00:00 Completed [facility] Pneumococcal Polysaccharide, PPSV23 (PNEUMOVAX) 2016-07-12 00:00:00 Completed [facility] Pneumococcal 13 Conjugate, PCV13 (Prevnar 13) 2016-07-12 00:00:00 Completed [facility] Influenza High Dose 2016-07-12 00:00:00 Completed [facility] Pneumococcal Polysaccharide, PPSV23 (PNEUMOVAX) 2016-07-12 00:00:00 Completed [facility] Pneumococcal 13 Conjugate, PCV13 (Prevnar 13) 2016-07-12 00:00:00 Completed [facility] Influenza High Dose 2016-07-12 00:00:00 Completed [facility] Pneumococcal Polysaccharide, PPSV23 (PNEUMOVAX) 2016-07-12 00:00:00 Completed [facility] Pneumococcal 13 Conjugate, PCV13 (Prevnar 13) 2016-07-12 00:00:00 Completed [facility] Influenza High Dose 2016-07-12 00:00:00 Completed [facility] Pneumococcal Polysaccharide, PPSV23 (PNEUMOVAX) 2016-07-12 00:00:00 Completed [facility] Pneumococcal 13 Conjugate, PCV13 (Prevnar 13) 2016-07-12 00:00:00 Completed [facility] Influenza High Dose 2016-07-12 00:00:00 Completed [facility] Pneumococcal Polysaccharide, PPSV23 (PNEUMOVAX) 2016-07-12 00:00:00 Completed [facility] Pneumococcal 13 Conjugate, PCV13 (Prevnar 13) 2016-07-12 00:00:00 Completed [facility] Influenza High Dose 2016-07-12 00:00:00 Completed [facility] Pneumococcal Polysaccharide, PPSV23 (PNEUMOVAX) 2016-07-12 00:00:00 Completed [facility] Pneumococcal 13 Conjugate, PCV13 (Prevnar 13) 2016-07-12 00:00:00 Completed [facility] Influenza High Dose 2016-07-12 00:00:00 Completed [facility] Pneumococcal Polysaccharide, PPSV23 (PNEUMOVAX) 2016-07-12 00:00:00 Completed [facility] Pneumococcal 13 Conjugate, PCV13 (Prevnar 13) 2016-07-12 00:00:00 Completed [facility] Influenza High Dose 2016-07-12 00:00:00 Completed [facility] Pneumococcal Polysaccharide, PPSV23 (PNEUMOVAX) 2016-07-12 00:00:00 Completed [facility] Pneumococcal 13 Conjugate, PCV13 (Prevnar 13) 2016-07-12 00:00:00 Completed [facility] Influenza High Dose 2016-07-12 00:00:00 Completed [facility] Pneumococcal Polysaccharide, PPSV23 (PNEUMOVAX) 2016-07-12 00:00:00 Completed [facility] Pneumococcal 13 Conjugate, PCV13 (Prevnar 13) 2016-07-12 00:00:00 Completed [facility] Influenza High Dose 2016-07-12 00:00:00 Completed [facility] Pneumococcal Polysaccharide, PPSV23 (PNEUMOVAX) 2016-07-12 00:00:00 Completed [facility] Pneumococcal 13 Conjugate, PCV13 (Prevnar 13) 2016-07-12 00:00:00 Completed [facility] Influenza High Dose 2016-07-12 00:00:00 Completed [facility] Pneumococcal Polysaccharide, PPSV23 (PNEUMOVAX) 2016-07-12 00:00:00 Completed [facility] Pneumococcal 13 Conjugate, PCV13 (Prevnar 13) 2016-07-12 00:00:00 Completed [facility] Influenza High Dose 2016-07-12 00:00:00 Completed [facility] Pneumococcal Polysaccharide, PPSV23 (PNEUMOVAX) 2016-07-12 00:00:00 Completed [facility] Pneumococcal 13 Conjugate, PCV13 (Prevnar 13) 2016-07-12 00:00:00 Completed [facility] Influenza High Dose 2016-07-12 00:00:00 Completed [facility] Pneumococcal Polysaccharide, PPSV23 (PNEUMOVAX) 2016-07-12 00:00:00 Completed [facility] Pneumococcal 13 Conjugate, PCV13 (Prevnar 13) 2016-07-12 00:00:00 Completed [facility] Influenza High Dose 2016-07-12 00:00:00 Completed [facility] Pneumococcal Polysaccharide, PPSV23 (PNEUMOVAX) 2016-07-12 00:00:00 Completed [facility] Pneumococcal 13 Conjugate, PCV13 (Prevnar 13) 2016-07-12 00:00:00 Completed [facility] Influenza High Dose 2016-07-12 00:00:00 Completed [facility] Pneumococcal Polysaccharide, PPSV23 (PNEUMOVAX) 2016-07-12 00:00:00 Completed [facility] Pneumococcal 13 Conjugate, PCV13 (Prevnar 13) 2016-07-12 00:00:00 Completed [facility] Influenza High Dose 2016-07-12 00:00:00 Completed [facility] Pneumococcal Polysaccharide, PPSV23 (PNEUMOVAX) 2016-07-12 00:00:00 Completed [facility] Pneumococcal 13 Conjugate, PCV13 (Prevnar 13) 2016-07-12 00:00:00 Completed [facility] Influenza High Dose 2016-07-12 00:00:00 Completed [facility] Pneumococcal Polysaccharide, PPSV23 (PNEUMOVAX) 2016-07-12 00:00:00 Completed [facility] Pneumococcal 13 Conjugate, PCV13 (Prevnar 13) 2016-07-12 00:00:00 Completed [facility] Influenza High Dose 2016-07-12 00:00:00 Completed [facility] Pneumococcal Polysaccharide, PPSV23 (PNEUMOVAX) 2016-07-12 00:00:00 Completed [facility] Pneumococcal 13 Conjugate, PCV13 (Prevnar 13) 2016-07-12 00:00:00 Completed [facility] Influenza High Dose 2016-07-12 00:00:00 Completed [facility] Pneumococcal Polysaccharide, PPSV23 (PNEUMOVAX) 2016-07-12 00:00:00 Completed [facility] Pneumococcal 13 Conjugate, PCV13 (Prevnar 13) 2016-07-12 00:00:00 Completed [facility] Influenza High Dose 2016-07-12 00:00:00 Completed [facility] Pneumococcal Polysaccharide, PPSV23 (PNEUMOVAX) 2016-07-12 00:00:00 Completed [facility] Pneumococcal 13 Conjugate, PCV13 (Prevnar 13) 2016-07-12 00:00:00 Completed [facility] Influenza High Dose 2016-07-12 00:00:00 Completed [facility] Pneumococcal Polysaccharide, PPSV23 (PNEUMOVAX) 2016-07-12 00:00:00 Completed [facility] Pneumococcal 13 Conjugate, PCV13 (Prevnar 13) 2016-07-12 00:00:00 Completed [facility] Influenza High Dose 2016-07-12 00:00:00 Completed [facility] Pneumococcal Polysaccharide, PPSV23 (PNEUMOVAX) 2016-07-12 00:00:00 Completed [facility] Pneumococcal 13 Conjugate, PCV13 (Prevnar 13) 2016-07-12 00:00:00 Completed [facility] Influenza High Dose 2016-07-12 00:00:00 Completed [facility] Pneumococcal Polysaccharide, PPSV23 (PNEUMOVAX) 2016-07-12 00:00:00 Completed [facility] Pneumococcal 13 Conjugate, PCV13 (Prevnar 13) 2016-07-12 00:00:00 Completed [facility] Influenza High Dose 2016-07-12 00:00:00 Completed [facility] Pneumococcal Polysaccharide, PPSV23 (PNEUMOVAX) 2016-07-12 00:00:00 Completed [facility] Pneumococcal 13 Conjugate, PCV13 (Prevnar 13) 2016-07-12 00:00:00 Completed [facility] Influenza High Dose 2016-07-12 00:00:00 Completed [facility] Pneumococcal Polysaccharide, PPSV23 (PNEUMOVAX) 2016-07-12 00:00:00 Completed [facility] Pneumococcal 13 Conjugate, PCV13 (Prevnar 13) 2016-07-12 00:00:00 Completed [facility] Influenza High Dose 2016-07-12 00:00:00 Completed [facility] Pneumococcal Polysaccharide, PPSV23 (PNEUMOVAX) 2016-07-12 00:00:00 Completed [facility] Pneumococcal 13 Conjugate, PCV13 (Prevnar 13) 2016-07-12 00:00:00 Completed [facility] Influenza High Dose 2016-07-12 00:00:00 Completed [facility] Pneumococcal Polysaccharide, PPSV23 (PNEUMOVAX) 2016-07-12 00:00:00 Completed [facility] Pneumococcal 13 Conjugate, PCV13 (Prevnar 13) 2016-07-12 00:00:00 Completed [facility] Influenza High Dose 2016-07-12 00:00:00 Completed [facility] Pneumococcal Polysaccharide, PPSV23 (PNEUMOVAX) 2016-07-12 00:00:00 Completed [facility] Pneumococcal 13 Conjugate, PCV13 (Prevnar 13) 2016-07-12 00:00:00 Completed [facility] Influenza High Dose 2016-07-12 00:00:00 Completed [facility] Pneumococcal Polysaccharide, PPSV23 (PNEUMOVAX) 2016-07-12 00:00:00 Completed [facility] Pneumococcal 13 Conjugate, PCV13 (Prevnar 13) 2016-07-12 00:00:00 Completed [facility] Influenza High Dose 2016-07-12 00:00:00 Completed [facility] Pneumococcal Polysaccharide, PPSV23 (PNEUMOVAX) 2016-07-12 00:00:00 Completed [facility] Pneumococcal 13 Conjugate, PCV13 (Prevnar 13) 2016-07-12 00:00:00 Completed [facility] Influenza High Dose 2016-07-12 00:00:00 Completed [facility] Pneumococcal Polysaccharide, PPSV23 (PNEUMOVAX) 2016-07-12 00:00:00 Completed [facility] Pneumococcal 13 Conjugate, PCV13 (Prevnar 13) 2016-07-12 00:00:00 Completed [facility] Influenza High Dose 2016-07-12 00:00:00 Completed [facility] Pneumococcal Polysaccharide, PPSV23 (PNEUMOVAX) 2016-07-12 00:00:00 Completed [facility] Pneumococcal 13 Conjugate, PCV13 (Prevnar 13) 2016-07-12 00:00:00 Completed [facility] Influenza High Dose 2016-07-12 00:00:00 Completed [facility] Pneumococcal Polysaccharide, PPSV23 (PNEUMOVAX) 2016-07-12 00:00:00 Completed [facility] Pneumococcal 13 Conjugate, PCV13 (Prevnar 13) 2016-07-12 00:00:00 Completed [facility] Influenza High Dose 2016-07-12 00:00:00 Completed [facility] Pneumococcal Polysaccharide, PPSV23 (PNEUMOVAX) 2016-07-12 00:00:00 Completed [facility] Pneumococcal 13 Conjugate, PCV13 (Prevnar 13) 2016-07-12 00:00:00 Completed [facility] Influenza High Dose 2016-07-12 00:00:00 Completed [facility] Pneumococcal Polysaccharide, PPSV23 (PNEUMOVAX) 2016-07-12 00:00:00 Completed [facility] Pneumococcal 13 Conjugate, PCV13 (Prevnar 13) 2016-07-12 00:00:00 Completed [facility] Influenza High Dose 2016-07-12 00:00:00 Completed [facility] Pneumococcal Polysaccharide, PPSV23 (PNEUMOVAX) 2016-07-12 00:00:00 Completed [facility] Pneumococcal 13 Conjugate, PCV13 (Prevnar 13) 2016-07-12 00:00:00 Completed [facility] Influenza High Dose 2016-07-12 00:00:00 Completed [facility] Pneumococcal Polysaccharide, PPSV23 (PNEUMOVAX) 2016-07-12 00:00:00 Completed [facility] Pneumococcal 13 Conjugate, PCV13 (Prevnar 13) 2016-07-12 00:00:00 Completed [facility] Influenza High Dose 2016-07-12 00:00:00 Completed [facility] Pneumococcal Polysaccharide, PPSV23 (PNEUMOVAX) 2016-07-12 00:00:00 Completed [facility] Pneumococcal 13 Conjugate, PCV13 (Prevnar 13) 2016-07-12 00:00:00 Completed [facility] Influenza High Dose 2016-07-12 00:00:00 Completed [facility] Pneumococcal Polysaccharide, PPSV23 (PNEUMOVAX) 2016-07-12 00:00:00 Completed [facility] Pneumococcal 13 Conjugate, PCV13 (Prevnar 13) 2016-07-12 00:00:00 Completed [facility] Influenza High Dose 2016-07-12 00:00:00 Completed [facility] Pneumococcal Polysaccharide, PPSV23 (PNEUMOVAX) 2016-07-12 00:00:00 Completed [facility] Pneumococcal 13 Conjugate, PCV13 (Prevnar 13) 2016-07-12 00:00:00 Completed [facility] Influenza High Dose 2016-07-12 00:00:00 Completed [facility] Pneumococcal Polysaccharide, PPSV23 (PNEUMOVAX) 2016-07-12 00:00:00 Completed [facility] Pneumococcal 13 Conjugate, PCV13 (Prevnar 13) 2016-07-12 00:00:00 Completed [facility] Influenza High Dose 2016-07-12 00:00:00 Completed [facility] Pneumococcal Polysaccharide, PPSV23 (PNEUMOVAX) 2016-07-12 00:00:00 Completed [facility] Pneumococcal 13 Conjugate, PCV13 (Prevnar 13) 2016-07-12 00:00:00 Completed [facility] Influenza High Dose 2016-07-12 00:00:00 Completed [facility] Pneumococcal Polysaccharide, PPSV23 (PNEUMOVAX) 2016-07-12 00:00:00 Completed [facility] Pneumococcal 13 Conjugate, PCV13 (Prevnar 13) 2016-07-12 00:00:00 Completed [facility] Influenza High Dose 2016-07-12 00:00:00 Completed [facility] Pneumococcal Polysaccharide, PPSV23 (PNEUMOVAX) 2016-07-12 00:00:00 Completed [facility] Pneumococcal 13 Conjugate, PCV13 (Prevnar 13) 2016-07-12 00:00:00 Completed [facility] Influenza High Dose 2016-07-12 00:00:00 Completed [facility] Pneumococcal Polysaccharide, PPSV23 (PNEUMOVAX) 2016-07-12 00:00:00 Completed [facility] Pneumococcal 13 Conjugate, PCV13 (Prevnar 13) 2016-07-12 00:00:00 [facility] [facility] Influenza High Dose 2016-07-12 00:00:00 Completed [facility] Pneumococcal Polysaccharide, PPSV23 (PNEUMOVAX) 2016-07-12 00:00:00 Completed [facility] Pneumococcal 13 Conjugate, PCV13 (Prevnar 13) 2016-07-12 00:00:00 Completed [facility] Influenza High Dose 2016-07-12 00:00:00 Completed [facility] Pneumococcal Polysaccharide, PPSV23 (PNEUMOVAX) 2016-07-12 00:00:00 Completed [facility] Pneumococcal 13 Conjugate, PCV13 (Prevnar 13) 2016-07-12 00:00:00 Completed [facility] Influenza High Dose 2016-07-12 00:00:00 Completed [facility] Pneumococcal Polysaccharide, PPSV23 (PNEUMOVAX) 2016-07-12 00:00:00 Completed [facility] Pneumococcal 13 Conjugate, PCV13 (Prevnar 13) 2016-07-12 00:00:00 Completed [facility] Influenza High Dose 2016-07-12 00:00:00 Completed [facility] Pneumococcal Polysaccharide, PPSV23 (PNEUMOVAX) 2016-07-12 00:00:00 Completed [facility] Pneumococcal 13 Conjugate, PCV13 (Prevnar 13) 2016-07-12 00:00:00 Completed [facility] Influenza High Dose 2016-07-12 00:00:00 Completed [facility] Pneumococcal Polysaccharide, PPSV23 (PNEUMOVAX) 2016-07-12 00:00:00 Completed [facility] Pneumococcal 13 Conjugate, PCV13 (Prevnar 13) 2016-07-12 00:00:00 Completed [facility] Influenza High Dose 2016-07-12 00:00:00 Completed [facility] Pneumococcal Polysaccharide, PPSV23 (PNEUMOVAX) 2016-07-12 00:00:00 Completed [facility] Pneumococcal 13 Conjugate, PCV13 (Prevnar 13) 2016-07-12 00:00:00 Completed [facility] Influenza High Dose 2016-07-12 00:00:00 Completed [facility] Pneumococcal Polysaccharide, PPSV23 (PNEUMOVAX) 2016-07-12 00:00:00 Completed [facility] Pneumococcal 13 Conjugate, PCV13 (Prevnar 13) 2016-07-12 00:00:00 Completed [facility] Influenza High Dose 2016-07-12 00:00:00 Completed [facility] Pneumococcal Polysaccharide, PPSV23 (PNEUMOVAX) 2016-07-12 00:00:00 Completed [facility] Pneumococcal 13 Conjugate, PCV13 (Prevnar 13) 2016-07-12 00:00:00 Completed [facility] Influenza High Dose 2016-07-12 00:00:00 Completed [facility] Pneumococcal Polysaccharide, PPSV23 (PNEUMOVAX) 2016-07-12 00:00:00 Completed [facility] Pneumococcal 13 Conjugate, PCV13 (Prevnar 13) 2016-07-12 00:00:00 Completed [facility] Influenza High Dose 2016-07-12 00:00:00 Completed [facility] Pneumococcal Polysaccharide, PPSV23 (PNEUMOVAX) 2016-07-12 00:00:00 Completed [facility] Pneumococcal 13 Conjugate, PCV13 (Prevnar 13) 2016-07-12 00:00:00 Completed [facility] Influenza High Dose 2016-07-12 00:00:00 Completed [facility] Pneumococcal Polysaccharide, PPSV23 (PNEUMOVAX) 2016-07-12 00:00:00 Completed [facility] Pneumococcal 13 Conjugate, PCV13 (Prevnar 13) 2016-07-12 00:00:00 Completed [facility] Influenza High Dose 2016-07-12 00:00:00 Completed [facility] Pneumococcal Polysaccharide, PPSV23 (PNEUMOVAX) 2016-07-12 00:00:00 Completed [facility] Pneumococcal 13 Conjugate, PCV13 (Prevnar 13) 2016-07-12 00:00:00 Completed [facility] Influenza High Dose 2016-07-12 00:00:00 Completed [facility] Pneumococcal Polysaccharide, PPSV23 (PNEUMOVAX) 2016-07-12 00:00:00 Completed [facility] Pneumococcal 13 Conjugate, PCV13 (Prevnar 13) 2016-07-12 00:00:00 Completed [facility] Influenza High Dose 2016-07-12 00:00:00 Completed [facility] Pneumococcal Polysaccharide, PPSV23 (PNEUMOVAX) 2016-07-12 00:00:00 Completed [facility] Pneumococcal 13 Conjugate, PCV13 (Prevnar 13) 2016-07-12 00:00:00 Completed [facility] Influenza High Dose 2016-07-12 00:00:00 Completed [facility] Pneumococcal Polysaccharide, PPSV23 (PNEUMOVAX) 2016-07-12 00:00:00 Completed [facility] Pneumococcal 13 Conjugate, PCV13 (Prevnar 13) 2016-07-12 00:00:00 Completed [facility] Influenza High Dose 2016-07-12 00:00:00 Completed [facility] Pneumococcal Polysaccharide, PPSV23 (PNEUMOVAX) 2016-07-12 00:00:00 Completed [facility] Pneumococcal 13 Conjugate, PCV13 (Prevnar 13) 2016-07-12 00:00:00 Completed [facility] Influenza High Dose 2016-07-12 00:00:00 Completed [facility] Pneumococcal Polysaccharide, PPSV23 (PNEUMOVAX) 2016-07-12 00:00:00 Completed [facility] Pneumococcal 13 Conjugate, PCV13 (Prevnar 13) 2016-07-12 00:00:00 Completed [facility] Influenza High Dose 2016-07-12 00:00:00 Completed [facility] Pneumococcal Polysaccharide, PPSV23 (PNEUMOVAX) 2016-07-12 00:00:00 Completed [facility] Pneumococcal 13 Conjugate, PCV13 (Prevnar 13) 2016-07-12 00:00:00 Completed [facility] Influenza High Dose 2016-07-12 00:00:00 Completed [facility] Pneumococcal Polysaccharide, PPSV23 (PNEUMOVAX) 2016-07-12 00:00:00 Completed [facility] Pneumococcal 13 Conjugate, PCV13 (Prevnar 13) 2016-07-12 00:00:00 Completed [facility] Influenza High Dose 2016-07-12 00:00:00 Completed [facility] Pneumococcal Polysaccharide, PPSV23 (PNEUMOVAX) 2016-07-12 00:00:00 Completed [facility] Pneumococcal 13 Conjugate, PCV13 (Prevnar 13) 2016-07-12 00:00:00 Completed [facility] Influenza High Dose 2016-07-12 00:00:00 Completed [facility] Pneumococcal Polysaccharide, PPSV23 (PNEUMOVAX) 2016-07-12 00:00:00 Completed [facility] Pneumococcal 13 Conjugate, PCV13 (Prevnar 13) 2016-07-12 00:00:00 Completed [facility] Influenza High Dose 2016-07-12 00:00:00 Completed [facility] Pneumococcal Polysaccharide, PPSV23 (PNEUMOVAX) 2016-07-12 00:00:00 Completed [facility] Pneumococcal 13 Conjugate, PCV13 (Prevnar 13) 2016-07-12 00:00:00 Completed [facility] Influenza High Dose 2016-07-12 00:00:00 Completed [facility] Pneumococcal Polysaccharide, PPSV23 (PNEUMOVAX) 2016-07-12 00:00:00 Completed [facility] Pneumococcal 13 Conjugate, PCV13 (Prevnar 13) 2016-07-12 00:00:00 Completed [facility] Influenza High Dose 2016-07-12 00:00:00 Completed [facility] Pneumococcal Polysaccharide, PPSV23 (PNEUMOVAX) 2016-07-12 00:00:00 Completed [facility] Pneumococcal 13 Conjugate, PCV13 (Prevnar 13) 2016-07-12 00:00:00 Completed [facility] Influenza High Dose 2016-07-12 00:00:00 Completed [facility] Pneumococcal Polysaccharide, PPSV23 (PNEUMOVAX) 2016-07-12 00:00:00 Completed [facility] Pneumococcal 13 Conjugate, PCV13 (Prevnar 13) 2016-07-12 00:00:00 Completed [facility] Influenza High Dose 2016-07-12 00:00:00 Completed [facility] Pneumococcal Polysaccharide, PPSV23 (PNEUMOVAX) 2016-07-12 00:00:00 Completed [facility] Pneumococcal 13 Conjugate, PCV13 (Prevnar 13) 2016-07-12 00:00:00 Completed [facility] Influenza, High-Dose, Trivalent, PF (FLUZONE) 2016-07-12 00:00:00 Completed [facility] Pneumococcal Polysaccharide, PPSV23 (PNEUMOVAX) 2016-07-12 00:00:00 Completed Pneumococcal Unspecified 2016-07-12 00:00:00 Completed Pneumococcal 13 Conjugate, PCV13 (Prevnar 13) 2016-07-12 00:00:00 Completed [facility] Influenza, High-Dose, Trivalent, PF (FLUZONE) 2016-07-12 00:00:00 Completed Pneumococcal Polysaccharide, PPSV23 (PNEUMOVAX) 2016-07-12 00:00:00 Completed Pneumococcal Unspecified 2016-07-12 00:00:00 Completed Pneumococcal 13 Conjugate, PCV13 (Prevnar 13) 2016-07-12 00:00:00 Completed [facility] Influenza, High-Dose, Trivalent, PF (FLUZONE) 2016-07-12 00:00:00 Completed Pneumococcal Polysaccharide, PPSV23 (PNEUMOVAX) 2016-07-12 00:00:00 Completed Pneumococcal Unspecified 2016-07-12 00:00:00 Completed Pneumococcal Polysaccharide, PPSV23 (PNEUMOVAX) 2016-07-11 00:00:00 Completed [facility] Pneumococcal Polysaccharide, PPSV23 (PNEUMOVAX) 2016-07-11 00:00:00 Completed [facility] Pneumococcal Polysaccharide, PPSV23 (PNEUMOVAX) 2016-07-11 00:00:00 Completed [facility] Pneumococcal Polysaccharide, PPSV23 (PNEUMOVAX) 2016-07-11 00:00:00 Completed [facility] Pneumococcal Polysaccharide, PPSV23 (PNEUMOVAX) 2016-07-11 00:00:00 Completed [facility] Pneumococcal Polysaccharide, PPSV23 (PNEUMOVAX) 2016-07-11 00:00:00 Completed [facility] Pneumococcal Polysaccharide, PPSV23 (PNEUMOVAX) 2016-07-11 00:00:00 Completed [facility] Pneumococcal Polysaccharide, PPSV23 (PNEUMOVAX) 2016-07-11 00:00:00 Completed [facility] Pneumococcal Polysaccharide, PPSV23 (PNEUMOVAX) 2016-07-11 00:00:00 Completed [facility] Pneumococcal Polysaccharide, PPSV23 (PNEUMOVAX) 2016-07-11 00:00:00 Completed [facility] Pneumococcal Polysaccharide, PPSV23 (PNEUMOVAX) 2016-07-11 00:00:00 Completed [facility] Pneumococcal Polysaccharide, PPSV23 (PNEUMOVAX) 2016-07-11 00:00:00 Completed [facility] Pneumococcal Polysaccharide, PPSV23 (PNEUMOVAX) 2016-07-11 00:00:00 Completed [facility] Pneumococcal Polysaccharide, PPSV23 (PNEUMOVAX) 2016-07-11 00:00:00 Completed [facility] Pneumococcal Polysaccharide, PPSV23 (PNEUMOVAX) 2016-07-11 00:00:00 Completed [facility] Pneumococcal Polysaccharide, PPSV23 (PNEUMOVAX) 2016-07-11 00:00:00 Completed [facility] Pneumococcal Polysaccharide, PPSV23 (PNEUMOVAX) 2016-07-11 00:00:00 Completed [facility] Pneumococcal Polysaccharide, PPSV23 (PNEUMOVAX) 2016-07-11 00:00:00 Completed [facility] Pneumococcal Polysaccharide, PPSV23 (PNEUMOVAX) 2016-07-11 00:00:00 Completed [facility] Pneumococcal Polysaccharide, PPSV23 (PNEUMOVAX) 2016-07-11 00:00:00 Completed [facility] Pneumococcal Polysaccharide, PPSV23 (PNEUMOVAX) 2016-07-11 00:00:00 Completed [facility] Pneumococcal Polysaccharide, PPSV23 (PNEUMOVAX) 2016-07-11 00:00:00 Completed [facility] Pneumococcal Polysaccharide, PPSV23 (PNEUMOVAX) 2016-07-11 00:00:00 Completed [facility] Pneumococcal Polysaccharide, PPSV23 (PNEUMOVAX) 2016-07-11 00:00:00 Completed [facility] Pneumococcal Polysaccharide, PPSV23 (PNEUMOVAX) 2016-07-11 00:00:00 Completed [facility] Pneumococcal Polysaccharide, PPSV23 (PNEUMOVAX) 2016-07-11 00:00:00 Completed [facility] Pneumococcal Polysaccharide, PPSV23 (PNEUMOVAX) 2016-07-11 00:00:00 Completed [facility] Pneumococcal Polysaccharide, PPSV23 (PNEUMOVAX) 2016-07-11 00:00:00 Completed [facility] Pneumococcal Polysaccharide, PPSV23 (PNEUMOVAX) 2016-07-11 00:00:00 Completed [facility] Pneumococcal Polysaccharide, PPSV23 (PNEUMOVAX) 2016-07-11 00:00:00 Completed [facility] Pneumococcal Polysaccharide, PPSV23 (PNEUMOVAX) 2016-07-11 00:00:00 Completed [facility] Pneumococcal Polysaccharide, PPSV23 (PNEUMOVAX) 2016-07-11 00:00:00 Completed [facility] Pneumococcal Polysaccharide, PPSV23 (PNEUMOVAX) 2016-07-11 00:00:00 Completed [facility] Pneumococcal Polysaccharide, PPSV23 (PNEUMOVAX) 2016-07-11 00:00:00 Completed [facility] Pneumococcal Polysaccharide, PPSV23 (PNEUMOVAX) 2016-07-11 00:00:00 Completed [facility] Pneumococcal Polysaccharide, PPSV23 (PNEUMOVAX) 2016-07-11 00:00:00 Completed [facility] Pneumococcal Polysaccharide, PPSV23 (PNEUMOVAX) 2016-07-11 00:00:00 Completed [facility] Pneumococcal Polysaccharide, PPSV23 (PNEUMOVAX) 2016-07-11 00:00:00 Completed [facility] Pneumococcal Polysaccharide, PPSV23 (PNEUMOVAX) 2016-07-11 00:00:00 Completed [facility] Pneumococcal Polysaccharide, PPSV23 (PNEUMOVAX) 2016-07-11 00:00:00 Completed [facility] Pneumococcal Polysaccharide, PPSV23 (PNEUMOVAX) 2016-07-11 00:00:00 Completed [facility] Pneumococcal Polysaccharide, PPSV23 (PNEUMOVAX) 2016-07-11 00:00:00 Completed [facility] Pneumococcal Polysaccharide, PPSV23 (PNEUMOVAX) 2016-07-11 00:00:00 Completed [facility] Pneumococcal Polysaccharide, PPSV23 (PNEUMOVAX) 2016-07-11 00:00:00 Completed [facility] Pneumococcal Polysaccharide, PPSV23 (PNEUMOVAX) 2016-07-11 00:00:00 Completed [facility] Pneumococcal Polysaccharide, PPSV23 (PNEUMOVAX) 2016-07-11 00:00:00 Completed [facility] Pneumococcal Polysaccharide, PPSV23 (PNEUMOVAX) 2016-07-11 00:00:00 Completed [facility] Pneumococcal Polysaccharide, PPSV23 (PNEUMOVAX) 2016-07-11 00:00:00 Completed [facility] Pneumococcal Polysaccharide, PPSV23 (PNEUMOVAX) 2016-07-11 00:00:00 Completed [facility] Pneumococcal Polysaccharide, PPSV23 (PNEUMOVAX) 2016-07-11 00:00:00 Completed [facility] Pneumococcal Polysaccharide, PPSV23 (PNEUMOVAX) 2016-07-11 00:00:00 Completed [facility] Pneumococcal Polysaccharide, PPSV23 (PNEUMOVAX) 2016-07-11 00:00:00 Completed [facility] Pneumococcal Polysaccharide, PPSV23 (PNEUMOVAX) 2016-07-11 00:00:00 Completed [facility] Pneumococcal Polysaccharide, PPSV23 (PNEUMOVAX) 2016-07-11 00:00:00 Completed [facility] Pneumococcal Polysaccharide, PPSV23 (PNEUMOVAX) 2016-07-11 00:00:00 Completed [facility] Pneumococcal Polysaccharide, PPSV23 (PNEUMOVAX) 2016-07-11 00:00:00 Completed [facility] Pneumococcal Polysaccharide, PPSV23 (PNEUMOVAX) 2016-07-11 00:00:00 Completed [facility] Pneumococcal Polysaccharide, PPSV23 (PNEUMOVAX) 2016-07-11 00:00:00 Completed [facility] Pneumococcal Polysaccharide, PPSV23 (PNEUMOVAX) 2016-07-11 00:00:00 Completed [facility] Pneumococcal Polysaccharide, PPSV23 (PNEUMOVAX) 2016-07-11 00:00:00 Completed [facility] Pneumococcal Polysaccharide, PPSV23 (PNEUMOVAX) 2016-07-11 00:00:00 Completed [facility] Pneumococcal Polysaccharide, PPSV23 (PNEUMOVAX) 2016-07-11 00:00:00 Completed [facility] Pneumococcal Polysaccharide, PPSV23 (PNEUMOVAX) 2016-07-11 00:00:00 Completed [facility] Pneumococcal Polysaccharide, PPSV23 (PNEUMOVAX) 2016-07-11 00:00:00 Completed [facility] Pneumococcal Polysaccharide, PPSV23 (PNEUMOVAX) 2016-07-11 00:00:00 Completed [facility] Pneumococcal Polysaccharide, PPSV23 (PNEUMOVAX) 2016-07-11 00:00:00 Completed [facility] Pneumococcal Polysaccharide, PPSV23 (PNEUMOVAX) 2016-07-11 00:00:00 Completed [facility] Pneumococcal Polysaccharide, PPSV23 (PNEUMOVAX) 2016-07-11 00:00:00 Completed [facility] Pneumococcal Polysaccharide, PPSV23 (PNEUMOVAX) 2016-07-11 00:00:00 Completed [facility] Pneumococcal Polysaccharide, PPSV23 (PNEUMOVAX) 2016-07-11 00:00:00 Completed [facility] Pneumococcal Polysaccharide, PPSV23 (PNEUMOVAX) 2016-07-11 00:00:00 Completed [facility] Pneumococcal Polysaccharide, PPSV23 (PNEUMOVAX) 2016-07-11 00:00:00 Completed [facility] Pneumococcal Polysaccharide, PPSV23 (PNEUMOVAX) 2016-07-11 00:00:00 Completed [facility] Pneumococcal Polysaccharide, PPSV23 (PNEUMOVAX) 2016-07-11 00:00:00 Completed [facility] Pneumococcal Polysaccharide, PPSV23 (PNEUMOVAX) 2016-07-11 00:00:00 Completed [facility] Pneumococcal Polysaccharide, PPSV23 (PNEUMOVAX) 2016-07-11 00:00:00 Completed [facility] Pneumococcal Polysaccharide, PPSV23 (PNEUMOVAX) 2016-07-11 00:00:00 Completed [facility] Pneumococcal Polysaccharide, PPSV23 (PNEUMOVAX) 2016-07-11 00:00:00 Completed [facility] Pneumococcal Polysaccharide, PPSV23 (PNEUMOVAX) 2016-07-11 00:00:00 Completed [facility] Pneumococcal Polysaccharide, PPSV23 (PNEUMOVAX) 2016-07-11 00:00:00 Completed [facility] Pneumococcal Polysaccharide, PPSV23 (PNEUMOVAX) 2016-07-11 00:00:00 Completed [facility] Pneumococcal Polysaccharide, PPSV23 (PNEUMOVAX) 2016-07-11 00:00:00 Completed [facility] Pneumococcal Polysaccharide, PPSV23 (PNEUMOVAX) 2016-07-11 00:00:00 Completed [facility] Pneumococcal Polysaccharide, PPSV23 (PNEUMOVAX) 2016-07-11 00:00:00 Completed [facility] Pneumococcal Polysaccharide, PPSV23 (PNEUMOVAX) 2016-07-11 00:00:00 Completed [facility] Pneumococcal Polysaccharide, PPSV23 (PNEUMOVAX) 2016-07-11 00:00:00 Completed [facility] Pneumococcal Polysaccharide, PPSV23 (PNEUMOVAX) 2016-07-11 00:00:00 Completed [facility] Pneumococcal Polysaccharide, PPSV23 (PNEUMOVAX) 2016-07-11 00:00:00 Completed [facility] Pneumococcal Polysaccharide, PPSV23 (PNEUMOVAX) 2016-07-11 00:00:00 Completed [facility] Pneumococcal Polysaccharide, PPSV23 (PNEUMOVAX) 2016-07-11 00:00:00 Completed [facility] Pneumococcal Polysaccharide, PPSV23 (PNEUMOVAX) 2016-07-11 00:00:00 Completed [facility] Pneumococcal Polysaccharide, PPSV23 (PNEUMOVAX) 2016-07-11 00:00:00 Completed [facility] Pneumococcal Polysaccharide, PPSV23 (PNEUMOVAX) 2016-07-11 00:00:00 Completed [facility] Pneumococcal Polysaccharide, PPSV23 (PNEUMOVAX) 2016-07-11 00:00:00 Completed [facility] Pneumococcal Polysaccharide, PPSV23 (PNEUMOVAX) 2016-07-11 00:00:00 Completed [facility] Pneumococcal Polysaccharide, PPSV23 (PNEUMOVAX) 2016-07-11 00:00:00 Completed [facility] Pneumococcal Polysaccharide, PPSV23 (PNEUMOVAX) 2016-07-11 00:00:00 Completed [facility] Pneumococcal Polysaccharide, PPSV23 (PNEUMOVAX) 2016-07-11 00:00:00 Completed [facility] Pneumococcal Polysaccharide, PPSV23 (PNEUMOVAX) 2016-07-11 00:00:00 Completed [facility] Pneumococcal Polysaccharide, PPSV23 (PNEUMOVAX) 2016-07-11 00:00:00 Completed [facility] Pneumococcal Polysaccharide, PPSV23 (PNEUMOVAX) 2016-07-11 00:00:00 Completed [facility] Pneumococcal Polysaccharide, PPSV23 (PNEUMOVAX) 2016-07-11 00:00:00 Completed [facility] Pneumococcal Polysaccharide, PPSV23 (PNEUMOVAX) 2016-07-11 00:00:00 Completed [facility] Pneumococcal Polysaccharide, PPSV23 (PNEUMOVAX) 2016-07-11 00:00:00 Completed [facility] Pneumococcal Polysaccharide, PPSV23 (PNEUMOVAX) 2016-07-11 00:00:00 Completed [facility] Pneumococcal Polysaccharide, PPSV23 (PNEUMOVAX) 2016-07-11 00:00:00 Completed [facility] Pneumococcal Polysaccharide, PPSV23 (PNEUMOVAX) 2016-07-11 00:00:00 Completed [facility] Pneumococcal Polysaccharide, PPSV23 (PNEUMOVAX) 2016-07-11 00:00:00 Completed [facility] Pneumococcal Polysaccharide, PPSV23 (PNEUMOVAX) 2016-07-11 00:00:00 Completed [facility] Pneumococcal Polysaccharide, PPSV23 (PNEUMOVAX) 2016-07-11 00:00:00 Completed [facility] Pneumococcal Polysaccharide, PPSV23 (PNEUMOVAX) 2016-07-11 00:00:00 Completed [facility] Pneumococcal Polysaccharide, PPSV23 (PNEUMOVAX) 2016-07-11 00:00:00 Completed [facility] Pneumococcal Polysaccharide, PPSV23 (PNEUMOVAX) 2016-07-11 00:00:00 Completed [facility] Pneumococcal Polysaccharide, PPSV23 (PNEUMOVAX) 2016-07-11 00:00:00 Completed [facility] Pneumococcal Polysaccharide, PPSV23 (PNEUMOVAX) 2016-07-11 00:00:00 Completed [facility] Pneumococcal Polysaccharide, PPSV23 (PNEUMOVAX) 2016-07-11 00:00:00 Completed [facility] Pneumococcal Polysaccharide, PPSV23 (PNEUMOVAX) 2016-07-11 00:00:00 Completed [facility] Pneumococcal Polysaccharide, PPSV23 (PNEUMOVAX) 2016-07-11 00:00:00 Completed [facility] Pneumococcal Polysaccharide, PPSV23 (PNEUMOVAX) 2016-07-11 00:00:00 Completed [facility] Pneumococcal Polysaccharide, PPSV23 (PNEUMOVAX) 2016-07-11 00:00:00 Completed [facility] Pneumococcal Polysaccharide, PPSV23 (PNEUMOVAX) 2016-07-11 00:00:00 Completed [facility] Pneumococcal Polysaccharide, PPSV23 (PNEUMOVAX) 2016-07-11 00:00:00 Completed [facility] Pneumococcal Polysaccharide, PPSV23 (PNEUMOVAX) 2016-07-11 00:00:00 Completed [facility] Pneumococcal Polysaccharide, PPSV23 (PNEUMOVAX) 2016-07-11 00:00:00 Completed [facility] Pneumococcal Polysaccharide, PPSV23 (PNEUMOVAX) 2016-07-11 00:00:00 Completed [facility] Pneumococcal Polysaccharide, PPSV23 (PNEUMOVAX) 2016-07-11 00:00:00 Completed [facility] Pneumococcal Polysaccharide, PPSV23 (PNEUMOVAX) 2016-07-11 00:00:00 Completed Pneumococcal Polysaccharide, PPSV23 (PNEUMOVAX) 2016-07-11 00:00:00 Completed Pneumococcal Polysaccharide, PPSV23 (PNEUMOVAX) 2016-07-11 00:00:00 Completed Pneumococcal Polysaccharide, PPSV23 (PNEUMOVAX) 2011-06-19 00:00:00 Completed [facility] Pneumococcal Polysaccharide, PPSV23 (PNEUMOVAX) 2011-06-19 00:00:00 Completed [facility] Pneumococcal Polysaccharide, PPSV23 (PNEUMOVAX) 2011-06-19 00:00:00 Completed [facility] Pneumococcal Polysaccharide, PPSV23 (PNEUMOVAX) 2011-06-19 00:00:00 Completed [facility] Pneumococcal Polysaccharide, PPSV23 (PNEUMOVAX) 2011-06-19 00:00:00 Completed [facility] Pneumococcal Polysaccharide, PPSV23 (PNEUMOVAX) 2011-06-19 00:00:00 Completed [facility] Pneumococcal Polysaccharide, PPSV23 (PNEUMOVAX) 2011-06-19 00:00:00 Completed [facility] Pneumococcal Polysaccharide, PPSV23 (PNEUMOVAX) 2011-06-19 00:00:00 Completed [facility] Pneumococcal Polysaccharide, PPSV23 (PNEUMOVAX) 2011-06-19 00:00:00 Completed [facility] Pneumococcal Polysaccharide, PPSV23 (PNEUMOVAX) 2011-06-19 00:00:00 Completed [facility] Pneumococcal Polysaccharide, PPSV23 (PNEUMOVAX) 2011-06-19 00:00:00 Completed [facility] Pneumococcal Polysaccharide, PPSV23 (PNEUMOVAX) 2011-06-19 00:00:00 Completed [facility] Pneumococcal Polysaccharide, PPSV23 (PNEUMOVAX) 2011-06-19 00:00:00 Completed [facility] Pneumococcal Polysaccharide, PPSV23 (PNEUMOVAX) 2011-06-19 00:00:00 Completed [facility] Pneumococcal Polysaccharide, PPSV23 (PNEUMOVAX) 2011-06-19 00:00:00 Completed [facility] Pneumococcal Polysaccharide, PPSV23 (PNEUMOVAX) 2011-06-19 00:00:00 Completed [facility] Pneumococcal Polysaccharide, PPSV23 (PNEUMOVAX) 2011-06-19 00:00:00 Completed [facility] Pneumococcal Polysaccharide, PPSV23 (PNEUMOVAX) 2011-06-19 00:00:00 Completed [facility] Pneumococcal Polysaccharide, PPSV23 (PNEUMOVAX) 2011-06-19 00:00:00 Completed [facility] Pneumococcal Polysaccharide, PPSV23 (PNEUMOVAX) 2011-06-19 00:00:00 Completed [facility] Pneumococcal Polysaccharide, PPSV23 (PNEUMOVAX) 2011-06-19 00:00:00 Completed [facility] Pneumococcal Polysaccharide, PPSV23 (PNEUMOVAX) 2011-06-19 00:00:00 Completed [facility] Pneumococcal Polysaccharide, PPSV23 (PNEUMOVAX) 2011-06-19 00:00:00 Completed [facility] Pneumococcal Polysaccharide, PPSV23 (PNEUMOVAX) 2011-06-19 00:00:00 Completed [facility] Pneumococcal Polysaccharide, PPSV23 (PNEUMOVAX) 2011-06-19 00:00:00 Completed [facility] Pneumococcal Polysaccharide, PPSV23 (PNEUMOVAX) 2011-06-19 00:00:00 Completed [facility] Pneumococcal Polysaccharide, PPSV23 (PNEUMOVAX) 2011-06-19 00:00:00 Completed [facility] Pneumococcal Polysaccharide, PPSV23 (PNEUMOVAX) 2011-06-19 00:00:00 Completed [facility] Pneumococcal Polysaccharide, PPSV23 (PNEUMOVAX) 2011-06-19 00:00:00 Completed [facility] Pneumococcal Polysaccharide, PPSV23 (PNEUMOVAX) 2011-06-19 00:00:00 Completed [facility] Pneumococcal Polysaccharide, PPSV23 (PNEUMOVAX) 2011-06-19 00:00:00 Completed [facility] Pneumococcal Polysaccharide, PPSV23 (PNEUMOVAX) 2011-06-19 00:00:00 Completed [facility] Pneumococcal Polysaccharide, PPSV23 (PNEUMOVAX) 2011-06-19 00:00:00 Completed [facility] Pneumococcal Polysaccharide, PPSV23 (PNEUMOVAX) 2011-06-19 00:00:00 Completed [facility] Pneumococcal Polysaccharide, PPSV23 (PNEUMOVAX) 2011-06-19 00:00:00 Completed [facility] Pneumococcal Polysaccharide, PPSV23 (PNEUMOVAX) 2011-06-19 00:00:00 Completed [facility] Pneumococcal Polysaccharide, PPSV23 (PNEUMOVAX) 2011-06-19 00:00:00 Completed [facility] Pneumococcal Polysaccharide, PPSV23 (PNEUMOVAX) 2011-06-19 00:00:00 Completed [facility] Pneumococcal Polysaccharide, PPSV23 (PNEUMOVAX) 2011-06-19 00:00:00 Completed [facility] Pneumococcal Polysaccharide, PPSV23 (PNEUMOVAX) 2011-06-19 00:00:00 Completed [facility] Pneumococcal Polysaccharide, PPSV23 (PNEUMOVAX) 2011-06-19 00:00:00 Completed [facility] Pneumococcal Polysaccharide, PPSV23 (PNEUMOVAX) 2011-06-19 00:00:00 Completed [facility] Pneumococcal Polysaccharide, PPSV23 (PNEUMOVAX) 2011-06-19 00:00:00 Completed [facility] Pneumococcal Polysaccharide, PPSV23 (PNEUMOVAX) 2011-06-19 00:00:00 Completed [facility] Pneumococcal Polysaccharide, PPSV23 (PNEUMOVAX) 2011-06-19 00:00:00 Completed [facility] Pneumococcal Polysaccharide, PPSV23 (PNEUMOVAX) 2011-06-19 00:00:00 Completed [facility] Pneumococcal Polysaccharide, PPSV23 (PNEUMOVAX) 2011-06-19 00:00:00 Completed [facility] Pneumococcal Polysaccharide, PPSV23 (PNEUMOVAX) 2011-06-19 00:00:00 Completed [facility] Pneumococcal Polysaccharide, PPSV23 (PNEUMOVAX) 2011-06-19 00:00:00 Completed [facility] Pneumococcal Polysaccharide, PPSV23 (PNEUMOVAX) 2011-06-19 00:00:00 Completed [facility] Pneumococcal Polysaccharide, PPSV23 (PNEUMOVAX) 2011-06-19 00:00:00 Completed [facility] Pneumococcal Polysaccharide, PPSV23 (PNEUMOVAX) 2011-06-19 00:00:00 Completed [facility] Pneumococcal Polysaccharide, PPSV23 (PNEUMOVAX) 2011-06-19 00:00:00 Completed [facility] Pneumococcal Polysaccharide, PPSV23 (PNEUMOVAX) 2011-06-19 00:00:00 Completed [facility] Pneumococcal Polysaccharide, PPSV23 (PNEUMOVAX) 2011-06-19 00:00:00 Completed [facility] Pneumococcal Polysaccharide, PPSV23 (PNEUMOVAX) 2011-06-19 00:00:00 Completed [facility] Pneumococcal Polysaccharide, PPSV23 (PNEUMOVAX) 2011-06-19 00:00:00 Completed [facility] Pneumococcal Polysaccharide, PPSV23 (PNEUMOVAX) 2011-06-19 00:00:00 Completed [facility] Pneumococcal Polysaccharide, PPSV23 (PNEUMOVAX) 2011-06-19 00:00:00 Completed [facility] Pneumococcal Polysaccharide, PPSV23 (PNEUMOVAX) 2011-06-19 00:00:00 Completed [facility] Pneumococcal Polysaccharide, PPSV23 (PNEUMOVAX) 2011-06-19 00:00:00 Completed [facility] Pneumococcal Polysaccharide, PPSV23 (PNEUMOVAX) 2011-06-19 00:00:00 Completed [facility] Pneumococcal Polysaccharide, PPSV23 (PNEUMOVAX) 2011-06-19 00:00:00 Completed [facility] Pneumococcal Polysaccharide, PPSV23 (PNEUMOVAX) 2011-06-19 00:00:00 Completed [facility] Pneumococcal Polysaccharide, PPSV23 (PNEUMOVAX) 2011-06-19 00:00:00 Completed [facility] Pneumococcal Polysaccharide, PPSV23 (PNEUMOVAX) 2011-06-19 00:00:00 Completed [facility] Pneumococcal Polysaccharide, PPSV23 (PNEUMOVAX) 2011-06-19 00:00:00 Completed [facility] Pneumococcal Polysaccharide, PPSV23 (PNEUMOVAX) 2011-06-19 00:00:00 Completed [facility] Pneumococcal Polysaccharide, PPSV23 (PNEUMOVAX) 2011-06-19 00:00:00 Completed [facility] Pneumococcal Polysaccharide, PPSV23 (PNEUMOVAX) 2011-06-19 00:00:00 Completed [facility] Pneumococcal Polysaccharide, PPSV23 (PNEUMOVAX) 2011-06-19 00:00:00 Completed [facility] Pneumococcal Polysaccharide, PPSV23 (PNEUMOVAX) 2011-06-19 00:00:00 Completed [facility] Pneumococcal Polysaccharide, PPSV23 (PNEUMOVAX) 2011-06-19 00:00:00 Completed [facility] Pneumococcal Polysaccharide, PPSV23 (PNEUMOVAX) 2011-06-19 00:00:00 Completed [facility] Pneumococcal Polysaccharide, PPSV23 (PNEUMOVAX) 2011-06-19 00:00:00 Completed [facility] Pneumococcal Polysaccharide, PPSV23 (PNEUMOVAX) 2011-06-19 00:00:00 Completed [facility] Pneumococcal Polysaccharide, PPSV23 (PNEUMOVAX) 2011-06-19 00:00:00 Completed [facility] Pneumococcal Polysaccharide, PPSV23 (PNEUMOVAX) 2011-06-19 00:00:00 Completed [facility] Pneumococcal Polysaccharide, PPSV23 (PNEUMOVAX) 2011-06-19 00:00:00 Completed [facility] Pneumococcal Polysaccharide, PPSV23 (PNEUMOVAX) 2011-06-19 00:00:00 Completed [facility] Pneumococcal Polysaccharide, PPSV23 (PNEUMOVAX) 2011-06-19 00:00:00 Completed [facility] Pneumococcal Polysaccharide, PPSV23 (PNEUMOVAX) 2011-06-19 00:00:00 Completed [facility] Pneumococcal Polysaccharide, PPSV23 (PNEUMOVAX) 2011-06-19 00:00:00 Completed [facility] Pneumococcal Polysaccharide, PPSV23 (PNEUMOVAX) 2011-06-19 00:00:00 Completed [facility] Pneumococcal Polysaccharide, PPSV23 (PNEUMOVAX) 2011-06-19 00:00:00 Completed [facility] Pneumococcal Polysaccharide, PPSV23 (PNEUMOVAX) 2011-06-19 00:00:00 Completed [facility] Pneumococcal Polysaccharide, PPSV23 (PNEUMOVAX) 2011-06-19 00:00:00 Completed [facility] Pneumococcal Polysaccharide, PPSV23 (PNEUMOVAX) 2011-06-19 00:00:00 Completed [facility] Pneumococcal Polysaccharide, PPSV23 (PNEUMOVAX) 2011-06-19 00:00:00 Completed [facility] Pneumococcal Polysaccharide, PPSV23 (PNEUMOVAX) 2011-06-19 00:00:00 Completed [facility] Pneumococcal Polysaccharide, PPSV23 (PNEUMOVAX) 2011-06-19 00:00:00 Completed [facility] Pneumococcal Polysaccharide, PPSV23 (PNEUMOVAX) 2011-06-19 00:00:00 Completed [facility] Pneumococcal Polysaccharide, PPSV23 (PNEUMOVAX) 2011-06-19 00:00:00 Completed [facility] Pneumococcal Polysaccharide, PPSV23 (PNEUMOVAX) 2011-06-19 00:00:00 Completed [facility] Pneumococcal Polysaccharide, PPSV23 (PNEUMOVAX) 2011-06-19 00:00:00 Completed [facility] Pneumococcal Polysaccharide, PPSV23 (PNEUMOVAX) 2011-06-19 00:00:00 Completed [facility] Pneumococcal Polysaccharide, PPSV23 (PNEUMOVAX) 2011-06-19 00:00:00 Completed [facility] Pneumococcal Polysaccharide, PPSV23 (PNEUMOVAX) 2011-06-19 00:00:00 Completed [facility] Pneumococcal Polysaccharide, PPSV23 (PNEUMOVAX) 2011-06-19 00:00:00 Completed [facility] Pneumococcal Polysaccharide, PPSV23 (PNEUMOVAX) 2011-06-19 00:00:00 Completed [facility] Pneumococcal Polysaccharide, PPSV23 (PNEUMOVAX) 2011-06-19 00:00:00 Completed [facility] Pneumococcal Polysaccharide, PPSV23 (PNEUMOVAX) 2011-06-19 00:00:00 Completed [facility] Pneumococcal Polysaccharide, PPSV23 (PNEUMOVAX) 2011-06-19 00:00:00 Completed [facility] Pneumococcal Polysaccharide, PPSV23 (PNEUMOVAX) 2011-06-19 00:00:00 Completed [facility] Pneumococcal Polysaccharide, PPSV23 (PNEUMOVAX) 2011-06-19 00:00:00 Completed [facility] Pneumococcal Polysaccharide, PPSV23 (PNEUMOVAX) 2011-06-19 00:00:00 Completed [facility] Pneumococcal Polysaccharide, PPSV23 (PNEUMOVAX) 2011-06-19 00:00:00 Completed [facility] Pneumococcal Polysaccharide, PPSV23 (PNEUMOVAX) 2011-06-19 00:00:00 Completed [facility] Pneumococcal Polysaccharide, PPSV23 (PNEUMOVAX) 2011-06-19 00:00:00 Completed [facility] Pneumococcal Polysaccharide, PPSV23 (PNEUMOVAX) 2011-06-19 00:00:00 Completed [facility] Pneumococcal Polysaccharide, PPSV23 (PNEUMOVAX) 2011-06-19 00:00:00 Completed [facility] Pneumococcal Polysaccharide, PPSV23 (PNEUMOVAX) 2011-06-19 00:00:00 Completed [facility] Pneumococcal Polysaccharide, PPSV23 (PNEUMOVAX) 2011-06-19 00:00:00 Completed [facility] Pneumococcal Polysaccharide, PPSV23 (PNEUMOVAX) 2011-06-19 00:00:00 Completed [facility] Pneumococcal Polysaccharide, PPSV23 (PNEUMOVAX) 2011-06-19 00:00:00 Completed [facility] Pneumococcal Polysaccharide, PPSV23 (PNEUMOVAX) 2011-06-19 00:00:00 Completed [facility] Pneumococcal Polysaccharide, PPSV23 (PNEUMOVAX) 2011-06-19 00:00:00 Completed [facility] Pneumococcal Polysaccharide, PPSV23 (PNEUMOVAX) 2011-06-19 00:00:00 Completed [facility] Pneumococcal Polysaccharide, PPSV23 (PNEUMOVAX) 2011-06-19 00:00:00 Completed [facility] Pneumococcal Polysaccharide, PPSV23 (PNEUMOVAX) 2011-06-19 00:00:00 Completed [facility] Pneumococcal Polysaccharide, PPSV23 (PNEUMOVAX) 2011-06-19 00:00:00 Completed [facility] Pneumococcal Polysaccharide, PPSV23 (PNEUMOVAX) 2011-06-19 00:00:00 Completed [facility] Pneumococcal Polysaccharide, PPSV23 (PNEUMOVAX) 2011-06-19 00:00:00 Completed [facility] Pneumococcal Polysaccharide, PPSV23 (PNEUMOVAX) 2011-06-19 00:00:00 Completed [facility] Pneumococcal Polysaccharide, PPSV23 (PNEUMOVAX) 2011-06-19 00:00:00 Completed [facility] Pneumococcal Polysaccharide, PPSV23 (PNEUMOVAX) 2011-06-19 00:00:00 Completed [facility] Pneumococcal Polysaccharide, PPSV23 (PNEUMOVAX) 2011-06-19 00:00:00 Completed [facility] Pneumococcal Polysaccharide, PPSV23 (PNEUMOVAX) 2011-06-19 00:00:00 Completed Pneumococcal Polysaccharide, PPSV23 (PNEUMOVAX) 2011-06-19 00:00:00 Completed Pneumococcal Polysaccharide, PPSV23 (PNEUMOVAX) 2011-05-05 00:00:00 Completed [facility] TDAP 2011-05-05 00:00:00 Completed [facility] Pneumococcal Polysaccharide, PPSV23 (PNEUMOVAX) 2011-05-05 00:00:00 Completed [facility] TDAP 2011-05-05 00:00:00 Completed [facility] Pneumococcal Polysaccharide, PPSV23 (PNEUMOVAX) 2011-05-05 00:00:00 Completed [facility] TDAP 2011-05-05 00:00:00 Completed [facility] Pneumococcal Polysaccharide, PPSV23 (PNEUMOVAX) 2011-05-05 00:00:00 Completed [facility] TDAP 2011-05-05 00:00:00 Completed [facility] Pneumococcal Polysaccharide, PPSV23 (PNEUMOVAX) 2011-05-05 00:00:00 Completed [facility] TDAP 2011-05-05 00:00:00 Completed [facility] Pneumococcal Polysaccharide, PPSV23 (PNEUMOVAX) 2011-05-05 00:00:00 Completed [facility] TDAP 2011-05-05 00:00:00 Completed [facility] Pneumococcal Polysaccharide, PPSV23 (PNEUMOVAX) 2011-05-05 00:00:00 Completed [facility] TDAP 2011-05-05 00:00:00 Completed [facility] Pneumococcal Polysaccharide, PPSV23 (PNEUMOVAX) 2011-05-05 00:00:00 Completed [facility] TDAP 2011-05-05 00:00:00 Completed [facility] Pneumococcal Polysaccharide, PPSV23 (PNEUMOVAX) 2011-05-05 00:00:00 Completed [facility] TDAP 2011-05-05 00:00:00 Completed [facility] Pneumococcal Polysaccharide, PPSV23 (PNEUMOVAX) 2011-05-05 00:00:00 Completed [facility] TDAP 2011-05-05 00:00:00 Completed [facility] Pneumococcal Polysaccharide, PPSV23 (PNEUMOVAX) 2011-05-05 00:00:00 Completed [facility] TDAP 2011-05-05 00:00:00 Completed [facility] Pneumococcal Polysaccharide, PPSV23 (PNEUMOVAX) 2011-05-05 00:00:00 Completed [facility] TDAP 2011-05-05 00:00:00 Completed [facility] Pneumococcal Polysaccharide, PPSV23 (PNEUMOVAX) 2011-05-05 00:00:00 Completed [facility] TDAP 2011-05-05 00:00:00 Completed [facility] Pneumococcal Polysaccharide, PPSV23 (PNEUMOVAX) 2011-05-05 00:00:00 Completed [facility] TDAP 2011-05-05 00:00:00 Completed [facility] Pneumococcal Polysaccharide, PPSV23 (PNEUMOVAX) 2011-05-05 00:00:00 Completed [facility] TDAP 2011-05-05 00:00:00 Completed [facility] Pneumococcal Polysaccharide, PPSV23 (PNEUMOVAX) 2011-05-05 00:00:00 Completed [facility] TDAP 2011-05-05 00:00:00 Completed [facility] Pneumococcal Polysaccharide, PPSV23 (PNEUMOVAX) 2011-05-05 00:00:00 Completed [facility] TDAP 2011-05-05 00:00:00 Completed [facility] Pneumococcal Polysaccharide, PPSV23 (PNEUMOVAX) 2011-05-05 00:00:00 Completed [facility] TDAP 2011-05-05 00:00:00 Completed [facility] Pneumococcal Polysaccharide, PPSV23 (PNEUMOVAX) 2011-05-05 00:00:00 Completed [facility] TDAP 2011-05-05 00:00:00 Completed [facility] Pneumococcal Polysaccharide, PPSV23 (PNEUMOVAX) 2011-05-05 00:00:00 Completed [facility] TDAP 2011-05-05 00:00:00 Completed [facility] Pneumococcal Polysaccharide, PPSV23 (PNEUMOVAX) 2011-05-05 00:00:00 Completed [facility] TDAP 2011-05-05 00:00:00 Completed [facility] Pneumococcal Polysaccharide, PPSV23 (PNEUMOVAX) 2011-05-05 00:00:00 Completed [facility] TDAP 2011-05-05 00:00:00 Completed [facility] Pneumococcal Polysaccharide, PPSV23 (PNEUMOVAX) 2011-05-05 00:00:00 Completed [facility] TDAP 2011-05-05 00:00:00 Completed [facility] Pneumococcal Polysaccharide, PPSV23 (PNEUMOVAX) 2011-05-05 00:00:00 Completed [facility] TDAP 2011-05-05 00:00:00 Completed [facility] Pneumococcal Polysaccharide, PPSV23 (PNEUMOVAX) 2011-05-05 00:00:00 Completed [facility] TDAP 2011-05-05 00:00:00 Completed [facility] Pneumococcal Polysaccharide, PPSV23 (PNEUMOVAX) 2011-05-05 00:00:00 Completed [facility] TDAP 2011-05-05 00:00:00 Completed [facility] Pneumococcal Polysaccharide, PPSV23 (PNEUMOVAX) 2011-05-05 00:00:00 Completed [facility] TDAP 2011-05-05 00:00:00 Completed [facility] Pneumococcal Polysaccharide, PPSV23 (PNEUMOVAX) 2011-05-05 00:00:00 Completed [facility] TDAP 2011-05-05 00:00:00 Completed [facility] Pneumococcal Polysaccharide, PPSV23 (PNEUMOVAX) 2011-05-05 00:00:00 Completed [facility] TDAP 2011-05-05 00:00:00 Completed [facility] Pneumococcal Polysaccharide, PPSV23 (PNEUMOVAX) 2011-05-05 00:00:00 Completed [facility] TDAP 2011-05-05 00:00:00 Completed [facility] Pneumococcal Polysaccharide, PPSV23 (PNEUMOVAX) 2011-05-05 00:00:00 Completed [facility] TDAP 2011-05-05 00:00:00 Completed [facility] Pneumococcal Polysaccharide, PPSV23 (PNEUMOVAX) 2011-05-05 00:00:00 Completed [facility] TDAP 2011-05-05 00:00:00 Completed [facility] Pneumococcal Polysaccharide, PPSV23 (PNEUMOVAX) 2011-05-05 00:00:00 Completed [facility] TDAP 2011-05-05 00:00:00 Completed [facility] Pneumococcal Polysaccharide, PPSV23 (PNEUMOVAX) 2011-05-05 00:00:00 Completed [facility] TDAP 2011-05-05 00:00:00 Completed [facility] Pneumococcal Polysaccharide, PPSV23 (PNEUMOVAX) 2011-05-05 00:00:00 Completed [facility] TDAP 2011-05-05 00:00:00 Completed [facility] Pneumococcal Polysaccharide, PPSV23 (PNEUMOVAX) 2011-05-05 00:00:00 Completed [facility] TDAP 2011-05-05 00:00:00 Completed [facility] Pneumococcal Polysaccharide, PPSV23 (PNEUMOVAX) 2011-05-05 00:00:00 Completed [facility] TDAP 2011-05-05 00:00:00 Completed [facility] Pneumococcal Polysaccharide, PPSV23 (PNEUMOVAX) 2011-05-05 00:00:00 Completed [facility] TDAP 2011-05-05 00:00:00 Completed [facility] Pneumococcal Polysaccharide, PPSV23 (PNEUMOVAX) 2011-05-05 00:00:00 Completed [facility] TDAP 2011-05-05 00:00:00 Completed [facility] Pneumococcal Polysaccharide, PPSV23 (PNEUMOVAX) 2011-05-05 00:00:00 Completed [facility] TDAP 2011-05-05 00:00:00 Completed [facility] Pneumococcal Polysaccharide, PPSV23 (PNEUMOVAX) 2011-05-05 00:00:00 Completed [facility] TDAP 2011-05-05 00:00:00 Completed [facility] Pneumococcal Polysaccharide, PPSV23 (PNEUMOVAX) 2011-05-05 00:00:00 Completed [facility] TDAP 2011-05-05 00:00:00 Completed [facility] Pneumococcal Polysaccharide, PPSV23 (PNEUMOVAX) 2011-05-05 00:00:00 Completed [facility] TDAP 2011-05-05 00:00:00 Completed [facility] Pneumococcal Polysaccharide, PPSV23 (PNEUMOVAX) 2011-05-05 00:00:00 Completed [facility] TDAP 2011-05-05 00:00:00 Completed [facility] Pneumococcal Polysaccharide, PPSV23 (PNEUMOVAX) 2011-05-05 00:00:00 Completed [facility] TDAP 2011-05-05 00:00:00 Completed [facility] Pneumococcal Polysaccharide, PPSV23 (PNEUMOVAX) 2011-05-05 00:00:00 Completed [facility] TDAP 2011-05-05 00:00:00 Completed [facility] Pneumococcal Polysaccharide, PPSV23 (PNEUMOVAX) 2011-05-05 00:00:00 Completed [facility] TDAP 2011-05-05 00:00:00 Completed [facility] Pneumococcal Polysaccharide, PPSV23 (PNEUMOVAX) 2011-05-05 00:00:00 Completed [facility] TDAP 2011-05-05 00:00:00 Completed [facility] Pneumococcal Polysaccharide, PPSV23 (PNEUMOVAX) 2011-05-05 00:00:00 Completed [facility] TDAP 2011-05-05 00:00:00 Completed [facility] Pneumococcal Polysaccharide, PPSV23 (PNEUMOVAX) 2011-05-05 00:00:00 Completed [facility] TDAP 2011-05-05 00:00:00 Completed [facility] Pneumococcal Polysaccharide, PPSV23 (PNEUMOVAX) 2011-05-05 00:00:00 Completed [facility] TDAP 2011-05-05 00:00:00 Completed [facility] Pneumococcal Polysaccharide, PPSV23 (PNEUMOVAX) 2011-05-05 00:00:00 Completed [facility] TDAP 2011-05-05 00:00:00 Completed [facility] Pneumococcal Polysaccharide, PPSV23 (PNEUMOVAX) 2011-05-05 00:00:00 Completed [facility] TDAP 2011-05-05 00:00:00 Completed [facility] Pneumococcal Polysaccharide, PPSV23 (PNEUMOVAX) 2011-05-05 00:00:00 Completed [facility] TDAP 2011-05-05 00:00:00 Completed [facility] Pneumococcal Polysaccharide, PPSV23 (PNEUMOVAX) 2011-05-05 00:00:00 Completed [facility] TDAP 2011-05-05 00:00:00 Completed [facility] Pneumococcal Polysaccharide, PPSV23 (PNEUMOVAX) 2011-05-05 00:00:00 Completed [facility] TDAP 2011-05-05 00:00:00 Completed [facility] Pneumococcal Polysaccharide, PPSV23 (PNEUMOVAX) 2011-05-05 00:00:00 Completed [facility] TDAP 2011-05-05 00:00:00 Completed [facility] Pneumococcal Polysaccharide, PPSV23 (PNEUMOVAX) 2011-05-05 00:00:00 Completed [facility] TDAP 2011-05-05 00:00:00 Completed [facility] Pneumococcal Polysaccharide, PPSV23 (PNEUMOVAX) 2011-05-05 00:00:00 Completed [facility] TDAP 2011-05-05 00:00:00 Completed [facility] Pneumococcal Polysaccharide, PPSV23 (PNEUMOVAX) 2011-05-05 00:00:00 Completed [facility] TDAP 2011-05-05 00:00:00 Completed [facility] Pneumococcal Polysaccharide, PPSV23 (PNEUMOVAX) 2011-05-05 00:00:00 Completed [facility] TDAP 2011-05-05 00:00:00 Completed [facility] Pneumococcal Polysaccharide, PPSV23 (PNEUMOVAX) 2011-05-05 00:00:00 Completed [facility] TDAP 2011-05-05 00:00:00 Completed [facility] Pneumococcal Polysaccharide, PPSV23 (PNEUMOVAX) 2011-05-05 00:00:00 Completed [facility] TDAP 2011-05-05 00:00:00 Completed [facility] Pneumococcal Polysaccharide, PPSV23 (PNEUMOVAX) 2011-05-05 00:00:00 Completed [facility] TDAP 2011-05-05 00:00:00 Completed [facility] Pneumococcal Polysaccharide, PPSV23 (PNEUMOVAX) 2011-05-05 00:00:00 Completed [facility] TDAP 2011-05-05 00:00:00 Completed [facility] Pneumococcal Polysaccharide, PPSV23 (PNEUMOVAX) 2011-05-05 00:00:00 Completed [facility] TDAP 2011-05-05 00:00:00 Completed [facility] Pneumococcal Polysaccharide, PPSV23 (PNEUMOVAX) 2011-05-05 00:00:00 Completed [facility] TDAP 2011-05-05 00:00:00 Completed [facility] Pneumococcal Polysaccharide, PPSV23 (PNEUMOVAX) 2011-05-05 00:00:00 Completed [facility] TDAP 2011-05-05 00:00:00 Completed [facility] Pneumococcal Polysaccharide, PPSV23 (PNEUMOVAX) 2011-05-05 00:00:00 Completed [facility] TDAP 2011-05-05 00:00:00 Completed [facility] Pneumococcal Polysaccharide, PPSV23 (PNEUMOVAX) 2011-05-05 00:00:00 Completed [facility] TDAP 2011-05-05 00:00:00 Completed [facility] Pneumococcal Polysaccharide, PPSV23 (PNEUMOVAX) 2011-05-05 00:00:00 Completed [facility] TDAP 2011-05-05 00:00:00 Completed [facility] Pneumococcal Polysaccharide, PPSV23 (PNEUMOVAX) 2011-05-05 00:00:00 Completed [facility] TDAP 2011-05-05 00:00:00 Completed [facility] Pneumococcal Polysaccharide, PPSV23 (PNEUMOVAX) 2011-05-05 00:00:00 Completed [facility] TDAP 2011-05-05 00:00:00 Completed [facility] Pneumococcal Polysaccharide, PPSV23 (PNEUMOVAX) 2011-05-05 00:[facility] [facility] Pneumococcal Polysaccharide, PPSV23 (PNEUMOVAX) 2011-05-05 00:00:[address] [facility]:00:00 Completed [facility] Pneumococcal Polysaccharide, PPSV23 (PNEUMOVAX) 2011-05-05 00:00:00 Completed [facility] TDAP 2011-05-05 00:00:00 Completed [facility] Pneumococcal Polysaccharide, PPSV23 (PNEUMOVAX) 2011-05-05 00:00:00 Completed [facility] TDAP 2011-05-05 00:00:00 Completed [facility] Pneumococcal Polysaccharide, PPSV23 (PNEUMOVAX) 2011-05-05 00:00:00 Completed [facility] TDAP 2011-05-05 00:00:00 Completed [facility] Pneumococcal Polysaccharide, PPSV23 (PNEUMOVAX) 2011-05-05 00:00:00 Completed [facility] TDAP 2011-05-05 00:00:00 Completed [facility] Pneumococcal Polysaccharide, PPSV23 (PNEUMOVAX) 2011-05-05 00:00[facility] [facility]:00:00 Completed [facility] Pneumococcal Polysaccharide, PPSV23 (PNEUMOVAX) 2011-05-05 00:00:00 Completed [facility] TDAP 2011-05-05 00:00:00 Completed [facility] Pneumococcal Polysaccharide, PPSV23 (PNEUMOVAX) 2011-05-05 00:00:00 Completed [facility] TDAP 2011-05-05 00:00:00 Completed [facility] Pneumococcal Polysaccharide, PPSV23 (PNEUMOVAX) 2011-05-05 00:00:00 Completed [facility] TDAP 2011-05-05 00:00:00 Completed [facility] Pneumococcal Polysaccharide, PPSV23 (PNEUMOVAX) 2011-05-05 00:00:00 Completed [facility] TDAP 2011-05-05 00:00:00 Completed [facility] Pneumococcal Polysaccharide, PPSV23 (PNEUMOVAX) 2011-05-05 00:00:00 Completed [facility] TDAP 2011-05-05 00:00:00 Completed [facility] Pneumococcal Polysaccharide, PPSV23 (PNEUMOVAX) 2011-05-05 00:00:00 Completed [facility] TDAP 2011-05-05 00:00:00 Completed [facility] Pneumococcal Polysaccharide, PPSV23 (PNEUMOVAX) 2011-05-05 00:00:00 Completed [facility] TDAP 2011-05-05 00:00:00 Completed [facility] Pneumococcal Polysaccharide, PPSV23 (PNEUMOVAX) 2011-05-05 00:00:00 Completed [facility] TDAP 2011-05-05 00:00:00 Completed [facility] Pneumococcal Polysaccharide, PPSV23 (PNEUMOVAX) 2011-05-05 00:00:00 Completed [facility] TDAP 2011-05-05 00:00:00 Completed [facility] Pneumococcal Polysaccharide, PPSV23 (PNEUMOVAX) 2011-05-05 00:00:00 Completed [facility] TDAP 2011-05-05 00:00:00 Completed [facility] Pneumococcal Polysaccharide, PPSV23 (PNEUMOVAX) 2011-05-05 00:00:00 Completed [facility] TDAP 2011-05-05 00:00:00 Completed [facility] Pneumococcal Polysaccharide, PPSV23 (PNEUMOVAX) 2011-05-05 00:00:00 Completed [facility] TDAP 2011-05-05 00:00:00 Completed [facility] Pneumococcal Polysaccharide, PPSV23 (PNEUMOVAX) 2011-05-05 00:00:00 Completed [facility] TDAP 2011-05-05 00:00:00 Completed [facility] Pneumococcal Polysaccharide, PPSV23 (PNEUMOVAX) 2011-05-05 00:00:00 Completed [facility] TDAP 2011-05-05 00:00:00 Completed [facility] Pneumococcal Polysaccharide, PPSV23 (PNEUMOVAX) 2011-05-05 00:00:00 Completed [facility] TDAP 2011-05-05 00:00:00 Completed [facility] Pneumococcal Polysaccharide, PPSV23 (PNEUMOVAX) 2011-05-05 00:00:00 Completed [facility] TDAP 2011-05-05 00:00:00 Completed [facility] Pneumococcal Polysaccharide, PPSV23 (PNEUMOVAX) 2011-05-05 00:00:00 Completed [facility] TDAP 2011-05-05 00:00:00 Completed [facility] Pneumococcal Polysaccharide, PPSV23 (PNEUMOVAX) 2011-05-05 00:00:00 Completed [facility] TDAP 2011-05-05 00:00:00 Completed [facility] Pneumococcal Polysaccharide, PPSV23 (PNEUMOVAX) 2011-05-05 00:00:00 Completed [facility] TDAP 2011-05-05 00:00:00 Completed [facility] Pneumococcal Polysaccharide, PPSV23 (PNEUMOVAX) 2011-05-05 00:00:00 Completed [facility] TDAP 2011-05-05 00:00:00 Completed [facility] Pneumococcal Polysaccharide, PPSV23 (PNEUMOVAX) 2011-05-05 00:00:00 Completed [facility] TDAP 2011-05-05 00:00:00 Completed [facility] Pneumococcal Polysaccharide, PPSV23 (PNEUMOVAX) 2011-05-05 00:00:00 Completed [facility] TDAP 2011-05-05 00:00:00 Completed [facility] Pneumococcal Polysaccharide, PPSV23 (PNEUMOVAX) 2011-05-05 00:00:00 Completed [facility] TDAP 2011-05-05 00:00:00 Completed [facility] Pneumococcal Polysaccharide, PPSV23 (PNEUMOVAX) 2011-05-05 00:00:00 Completed [facility] TDAP 2011-05-05 00:00:00 Completed [facility] Pneumococcal Polysaccharide, PPSV23 (PNEUMOVAX) 2011-05-05 00:00:00 Completed [facility] TDAP 2011-05-05 00:00:00 Completed [facility] Pneumococcal Polysaccharide, PPSV23 (PNEUMOVAX) 2011-05-05 00:00:00 Completed [facility] TDAP 2011-05-05 00:00:00 Completed [facility] Pneumococcal Polysaccharide, PPSV23 (PNEUMOVAX) 2011-05-05 00:00:00 Completed [facility] TDAP 2011-05-05 00:00:00 Completed [facility] Pneumococcal Polysaccharide, PPSV23 (PNEUMOVAX) 2011-05-05 00:00:00 Completed [facility] TDAP 2011-05-05 00:00:00 Completed [facility] Pneumococcal Polysaccharide, PPSV23 (PNEUMOVAX) 2011-05-05 00:00:00 Completed [facility] TDAP 2011-05-05 00:00:00 Completed [facility] Pneumococcal Polysaccharide, PPSV23 (PNEUMOVAX) 2011-05-05 00:00:00 Completed [facility] TDAP 2011-05-05 00:00:00 Completed [facility] Pneumococcal Polysaccharide, PPSV23 (PNEUMOVAX) 2011-05-05 00:00:00 Completed [facility] TDAP 2011-05-05 00:00:00 Completed [facility] Pneumococcal Polysaccharide, PPSV23 (PNEUMOVAX) 2011-05-05 00:00:00 Completed [facility] TDAP 2011-05-05 00:00:00 Completed [facility] Pneumococcal Polysaccharide, PPSV23 (PNEUMOVAX) 2011-05-05 00:00:00 Completed [facility] TDAP 2011-05-05 00:00:00 Completed [facility] Pneumococcal Polysaccharide, PPSV23 (PNEUMOVAX) 2011-05-05 00:00:00 Completed [facility] TDAP 2011-05-05 00:00:00 Completed [facility] Pneumococcal Polysaccharide, PPSV23 (PNEUMOVAX) 2011-05-05 00:00:00 Completed [facility] TDAP 2011-05-05 00:00:00 Completed [facility] Pneumococcal Polysaccharide, PPSV23 (PNEUMOVAX) 2011-05-05 00:00:00 Completed [facility] TDAP 2011-05-05 00:00:00 Completed [facility] Pneumococcal Polysaccharide, PPSV23 (PNEUMOVAX) 2011-05-05 00:00:00 Completed [facility] TDAP 2011-05-05 00:00:00 Completed [facility] Pneumococcal Polysaccharide, PPSV23 (PNEUMOVAX) 2011-05-05 00:00:00 Completed [facility] TDAP 2011-05-05 00:00:00 Completed [facility] Pneumococcal Polysaccharide, PPSV23 (PNEUMOVAX) 2011-05-05 00:00:00 Completed [facility] TDAP 2011-05-05 00:00:00 Completed [facility] Pneumococcal Polysaccharide, PPSV23 (PNEUMOVAX) 2011-05-05 00:00:00 Completed [facility] TDAP 2011-05-05 00:00:00 Completed [facility] Pneumococcal Polysaccharide, PPSV23 (PNEUMOVAX) 2011-05-05 00:00:00 Completed [facility] TDAP 2011-05-05 00:00:00 Completed [facility] Pneumococcal Polysaccharide, PPSV23 (PNEUMOVAX) 2011-05-05 00:00:00 Completed [facility] TDAP 2011-05-05 00:00:00 Completed [facility] Pneumococcal Polysaccharide, PPSV23 (PNEUMOVAX) 2011-05-05 00:00:00 Completed [facility] TDAP 2011-05-05 00:00:00 Completed [facility] Pneumococcal Polysaccharide, PPSV23 (PNEUMOVAX) 2011-05-05 00:00:00 Completed [facility] TDAP 2011-05-05 00:00:00 Completed [facility] Pneumococcal Polysaccharide, PPSV23 (PNEUMOVAX) 2011-05-05 00:00:00 Completed [facility] TDAP 2011-05-05 00:00:00 Completed [facility] Pneumococcal Polysaccharide, PPSV23 (PNEUMOVAX) 2011-05-05 00:00:00 Completed [facility] TDAP 2011-05-05 00:00:00 Completed [facility] TDAP 2011-05-05 00:00:00 Completed [facility] Pneumococcal Polysaccharide, PPSV23 (PNEUMOVAX) 2011-05-05 00:00:00 Completed Pneumococcal Polysaccharide, PPSV23 (PNEUMOVAX) 2011-05-05 00:00:00 Completed TDAP 2011-05-05 00:00:00 Completed Pneumococcal Polysaccharide, PPSV23 (PNEUMOVAX) 2011-05-05 00:00:00 Completed TDAP 2011-05-05 00:00:00 Completed Pneumococcal 13 Conjugate, PCV13 (Prevnar 13) Unknown Completed [facility] TDAP Unknown Completed [facility] Pneumococcal Polysaccharide, PPSV23 (PNEUMOVAX) Unknown Completed [facility] Influenza High Dose Unknown Completed [facility] Influenza Virus Vaccine Unknown Completed [facility] SARS-COV-2 COVID-19 UNSPECIFIED VACCINE Unknown Completed [facility] Influenza Virus Vaccine Quad IM Multi-dose 6+ MO Unknown Completed [facility] Influenza Virus Vaccine,quad Im,preserve Free 65+ (FLUAD) Unknown Completed [facility] SARS-COV-2 COVID-19 VACCINE - (MODERNA) Unknown Completed [facility] Pneumococcal 13 Conjugate, PCV13 (Prevnar 13) Unknown Completed [facility] TDAP Unknown Completed [facility] Pneumococcal Polysaccharide, PPSV23 (PNEUMOVAX) Unknown Completed [facility] Influenza High Dose Unknown Completed [facility] Influenza Virus Vaccine Unknown Completed [facility] SARS-COV-2 COVID-19 UNSPECIFIED VACCINE Unknown Completed [facility] Influenza Virus Vaccine Quad IM Multi-dose 6+ MO Unknown Completed [facility] Influenza Virus Vaccine,quad Im,preserve Free 65+ (FLUAD) Unknown Completed [facility] SARS-COV-2 COVID-19 VACCINE - (MODERNA) Unknown Completed [facility] Pneumococcal 13 Conjugate, PCV13 (Prevnar 13) Unknown Completed [facility] TDAP Unknown Completed [facility] Pneumococcal Polysaccharide, PPSV23 (PNEUMOVAX) Unknown Completed [facility] Influenza High Dose Unknown Completed [facility] Influenza Virus Vaccine Unknown Completed [facility] SARS-COV-2 COVID-19 UNSPECIFIED VACCINE Unknown Com[facility] Influenza Virus Vaccine Quad IM Multi-dose 6+ MO Unknown Completed [facility] Influenza Virus Vaccine,quad Im,preserve Free 65+ (FLUAD) Unknown Completed [facility] SARS-COV-2 COVID-19 VACCINE - (MODERNA) Unknown Completed [facility] Pneumococcal 13 Conjugate, PCV13 (Prevnar 13) Unknown Completed [facility] TDAP Unknown Completed [facility] Pneumococcal Polysaccharide, PPSV23 (PNEUMOVAX) Unknown [facility] Com[facility] Influenza Virus Vaccine Unknown Completed [facility] SARS-COV-2 COVID-19 UNSPECIFIED VACCINE Unknown Completed [facility] Influenza Virus Vaccine Quad IM Multi-dose 6+ MO Unknown Completed [facility] Influenza Virus Vaccine,quad Im,preserve Free 65+ (FLUAD) Unknown Completed [facility] SARS-COV-2 COVID-19 VACCINE - (MODERNA) Unknown Completed [facility] Pneumococcal 13 Conjugate, PCV13 (Prevnar 13) Unknown Completed [facility] TDAP Unknown Completed [facility] Pneumococcal Polysaccharide, PPSV23 (PNEUMOVAX) Unknown Completed [facility] Influenza High Dose Unknown Completed [facility] Influenza Virus Vaccine Unknown Completed [facility] SARS-COV-2 COVID-19 UNSPECIFIED VACCINE Unknown Completed [facility] Influenza Virus Vaccine Quad IM Multi-dose 6+ MO Unknown Completed [facility] Influenza Virus Vaccine,quad Im,preserve Free 65+ (FLUAD) Unknown Completed [facility] SARS-COV-2 COVID-19 VACCINE - (MODERNA) Unknown Completed [facility] Pneumococcal 13 Conjugate, PCV13 (Prevnar 13) Unknown Completed [facility] TDAP Unknown Completed [facility] Pneumococcal Polysaccharide, PPSV23 (PNEUMOVAX) Unknown Completed [facility] Influenza High Dose Unknown Completed [facility] Influenza Virus Vaccine Unknown Completed [facility] SARS-COV-2 COVID-19 UNSPECIFIED VACCINE Unknown Completed [facility] Influenza Virus Vaccine Quad IM Multi-dose 6+ MO Unknown Completed [facility] Influenza Virus Vaccine,quad Im,preserve Free 65+ (FLUAD) Unknown Completed [facility] SARS-COV-2 COVID-19 VACCINE - (MODERNA) Unknown Completed [facility] Pneumococcal 13 Conjugate, PCV13 (Prevnar 13) Unknown Completed [facility] TDAP Unknown Completed [facility] Pneumococcal Polysaccharide, PPSV23 (PNEUMOVAX) Unknown Completed [facility] Influenza High Dose Unknown Completed [facility] Influenza Virus Vaccine Unknown Completed [facility] SARS-COV-2 COVID-19 UNSPECIFIED VACCINE Unknown Completed [facility] Influenza Virus Vaccine Quad IM Multi-dose 6+ MO Unknown Completed [facility] Influenza Virus Vaccine,quad Im,preserve Free 65+ (FLUAD) Unknown Completed [facility] SARS-COV-2 COVID-19 VACCINE - (MODERNA) Unknown Completed [facility] Pneumococcal 13 Conjugate, PCV13 (Prevnar 13) Unknown Completed [facility] TDAP Unknown Completed [facility] Pneumococcal Polysaccharide, PPSV23 (PNEUMOVAX) Unknown Completed [facility] Influenza High Dose Unknown Completed [facility] Influenza Virus Vaccine Unknown Completed [facility] SARS-COV-2 COVID-19 UNSPECIFIED VACCINE Unknown Completed [facility] Influenza Virus Vaccine Quad IM Multi-dose 6+ MO Unknown Completed [facility] Influenza Virus Vaccine,quad Im,preserve Free 65+ (FLUAD) Unknown Completed [facility] SARS-COV-2 COVID-19 VACCINE - (MODERNA) Unknown Completed [facility] Pneumococcal 13 Conjugate, PCV13 (Prevnar 13) Unknown Completed [facility] TDAP Unknown Completed [facility] Pneumococcal Polysaccharide, PPSV23 (PNEUMOVAX) Unknown Completed [facility] Influenza High Dose Unknown Completed [facility] Influenza Virus Vaccine Unknown Completed [facility] SARS-COV-2 COVID-19 UNSPECIFIED VACCINE Unknown Completed [facility] Influenza Virus Vaccine Quad IM Multi-dose 6+ MO Unknown Completed [facility] SARS-COV-2 COVID-19 VACCINE - (MODERNA) Unknown Completed [facility] Pneumococcal 13 Conjugate, PCV13 (Prevnar 13) Unknown Completed [facility] TDAP Unknown Completed [facility] Pneumococcal Polysaccharide, PPSV23 (PNEUMOVAX) [facility] Influenza Virus Vaccine Unknown Completed [facility] SARS-COV-2 COVID-19 UNSPECIFIED VACCINE Unknown Completed [facility] Influenza Virus Vaccine Quad IM Multi-dose 6+ MO Unknown Completed [facility] SARS-COV-2 COVID-19 VACCINE - (MODERNA) [facility] P[facility] Conjugate, PCV13 (Prevnar 13) Unknown Completed [facility] TDAP Unknown Completed [facility] Pneumococcal Polysaccharide, PPSV23 (PNEUMOVAX) Unknown [facility] Completed [facility] Influenza Virus Vaccine Unknown Completed [facility] SARS-COV-2 COVID-19 UNSPECIFIED VACCINE Unknown Completed [facility] Influenza Virus Vaccine Quad IM Multi-dose 6+ MO Unknown Completed [facility] SARS-COV-2 COVID-19 VACCINE - (MODERNA) Unknown Completed [facility] Pneumococcal 13 Conjugate, PCV13 (Prevnar 13) Unknown Completed [facility] TDAP Unknown Completed [facility] Pneumococcal Polysaccharide, PPSV23 (PNEUMOVAX) Unknown [facility] Dose [facility] Completed [facility] Influenza Virus Vaccine Unknown Completed [facility] SARS-COV-2 COVID-19 UNSPECIFIED VACCINE Unknown [facility] Vaccine Quad IM Multi-dose 6+ MO Unknown Completed [facility] Influenza Virus Vaccine,quad Im,preserve Free 65+ (FLUAD) Unknown Completed [facility] SARS-COV-2 COVID-19 VACCINE - (MODERNA) Unknown Completed [facility] Pneumococcal 13 Conjugate, PCV13 (Prevnar 13) Unknown Completed [facility] TDAP Unknown Completed [facility] Pneumococcal Polysaccharide, PPSV23 (PNEUMOVAX) Unknown [facility] Influenza High Dose Unknown Completed [facility] Influenza Virus Vaccine Unknown Completed [facility] SARS-COV-2 COVID-19 UNSPECIFIED VACCINE Unknown Completed [facility] Influenza Virus Vaccine Quad IM Multi-dose 6+ MO Unknown Completed [facility] Influenza Virus Vaccine,quad Im,preserve Free 65+ (FLUAD) Unknown Completed [facility] SARS-COV-2 COVID-19 VACCINE - (MODERNA) Unknown Completed [facility] Pneumococcal 13 Conjugate, PCV13 (Prevnar 13) Unknown Completed [facility] TDAP Unknown Completed [facility] Pneumococcal Polysaccharide, PPSV23 (PNEUMOVAX) Unknown Completed [facility] Influenza High Dose Unknown Completed [facility] Influenza Virus Vaccine Unknown Completed [facility] SARS-COV-2 COVID-19 UNSPECIFIED VACCINE Unknown Completed [facility] Influenza Virus Vaccine Quad IM Multi-dose 6+ MO Unknown Completed [facility] Influenza Virus Vaccine,quad Im,preserve Free 65+ (FLUAD) Unknown Completed [facility] SARS-COV-2 COVID-19 VACCINE - (MODERNA) Unknown Completed [facility] Pneumococcal 13 Conjugate, PCV13 (Prevnar 13) Unknown Completed [facility] TDAP Unknown Completed [facility] Pneumococcal Polysaccharide, PPSV23 (PNEUMOVAX) Unknown Completed [facility] Influenza High Dose Unknown Completed [facility] Influenza Virus Vaccine Unknown Completed [facility] SARS-COV-2 COVID-19 UNSPECIFIED VACCINE Unknown Completed [facility] Influenza Virus Vaccine Quad IM Multi-dose 6+ MO Unknown Completed [facility] Influenza Virus Vaccine,quad Im,preserve Free 65+ (FLUAD) Unknown Completed [facility] SARS-COV-2 COVID-19 VACCINE - (MODERNA) Unknown Completed [facility] Pneumococcal 13 Conjugate, PCV13 (Prevnar 13) Unknown Completed [facility] TDAP Unknown Completed [facility] Pneumococcal Polysaccharide, PPSV23 (PNEUMOVAX) Unknown Completed [facility] Influenza High Dose Unknown Completed [facility] Influenza Virus Vaccine Unknown Completed [facility] SARS-COV-2 COVID-19 UNSPECIFIED VACCINE Unknown Completed [facility] Influenza Virus Vaccine Quad IM Multi-dose 6+ MO Unknown Completed [facility] Influenza Virus Vaccine,quad Im,preserve Free 65+ (FLUAD) Unknown Completed [facility] SARS-COV-2 COVID-19 VACCINE - (MODERNA) Unknown Completed [facility] Pneumococcal 13 Conjugate, PCV13 (Prevnar 13) Unknown Completed [facility] TDAP Unknown Completed [facility] Pneumococcal Polysaccharide, PPSV23 (PNEUMOVAX) Unknown Completed [facility] Influenza High Dose Unknown Completed [facility] Influenza Virus Vaccine Unknown Completed [facility] SARS-COV-2 COVID-19 UNSPECIFIED VACCINE Unknown [facility] Virus Vaccine Quad IM Multi-dose 6+ MO Unknown Completed [facility] Influenza Virus Vaccine,quad Im,preserve Free 65+ (FLUAD) Unknown Completed [facility] SARS-COV-2 COVID-19 VACCINE - (MODERNA) Unknown Completed [facility] Pneumococcal 13 Conjugate, PCV13 (Prevnar 13) Unknown Completed [facility] TDAP Unknown Completed [facility] Pneumococcal Polysaccharide, PPSV23 (PNEUMOVAX) Unknown Completed [facility] Influenza High Dose Unknown Completed [facility] Influenza Virus Vaccine Unknown Completed [facility] SARS-COV-2 COVID-19 UNSPECIFIED VACCINE Unknown Completed [facility] Influenza Virus Vaccine Quad IM Multi-dose 6+ MO Unknown Completed [facility] Influenza Virus Vaccine,quad Im,preserve Free 65+ (FLUAD) Unknown Completed [facility] SARS-COV-2 COVID-19 VACCINE - (MODERNA) Unknown Completed [facility] Pneumococcal 13 Conjugate, PCV13 (Prevnar 13) Unknown Completed [facility] TDAP Unknown Completed [facility] Pneumococcal Polysaccharide, PPSV23 (PNEUMOVAX) Unknown Completed [facility] Influenza High Dose Unknown Completed [facility] Influenza Virus Vaccine Unknown Completed [facility] SARS-COV-2 COVID-19 UNSPECIFIED VACCINE Unknown Completed [facility] Influenza Virus Vaccine Quad IM Multi-dose 6+ MO Unknown Completed [facility] Influenza Virus Vaccine,quad Im,preserve Free 65+ (FLUAD) Unknown Completed [facility] SARS-COV-2 COVID-19 VACCINE - (MODERNA) Unknown Completed [facility] Pneumococcal 13 Conjugate, PCV13 (Prevnar 13) Unknown Completed [facility] TDAP Unknown Completed [facility] Pneumococcal Polysaccharide, PPSV23 (PNEUMOVAX) Unknown Completed [facility] Influenza High Dose Unknown Completed [facility] Influenza Virus Vaccine Unknown Completed [facility] SARS-COV-2 COVID-19 UNSPECIFIED VACCINE Unknown Completed [facility] Influenza Virus Vaccine Quad IM Multi-dose 6+ MO Unknown Completed [facility] Influenza Virus Vaccine,quad Im,preserve Free 65+ (FLUAD) Unknown Completed [facility] SARS-COV-2 COVID-19 VACCINE - (MODERNA) Unknown Completed [facility] Pneumococcal 13 Conjugate, PCV13 (Prevnar 13) Unknown Completed [facility] TDAP Unknown Completed [facility] Influenza Virus Vaccine Quad IM Multi-dose 6+ MO Unknown Completed [facility] Influenza Virus Vaccine,quad Im,preserve Free 65+ (FLUAD) Unknown Completed [facility] Pneumococcal Polysaccharide, PPSV23 (PNEUMOVAX) Unknown Completed [facility] Influenza High Dose Unknown Completed [facility] Influenza Virus Vaccine Unknown Completed [facility] SARS-COV-2 COVID-19 UNSPECIFIED VACCINE Unknown Completed [facility] SARS-COV-2 COVID-19 VACCINE - (MODERNA) Unknown Completed [facility] Pneumococcal Polysaccharide, PPSV23 (PNEUMOVAX) Unknown Completed [facility] Pneumococcal 13 Conjugate, PCV13 (Prevnar 13) Unknown Completed [facility] TDAP Unknown Completed [facility] Influenza High Dose Unknown Completed [facility] Influenza Virus Vaccine Unknown Completed [facility] SARS-COV-2 COVID-19 UNSPECIFIED VACCINE Unknown Completed [facility] Influenza Virus Vaccine Quad IM Multi-dose 6+ MO Unknown Completed [facility] Influenza Virus Vaccine,quad Im,preserve Free 65+ (FLUAD) Unknown Completed [facility] SARS-COV-2 COVID-19 VACCINE - (MODERNA) Unknown Completed [facility] Pneumococcal Polysaccharide, PPSV23 (PNEUMOVAX) Unknown Completed [facility] Pneumococcal 13 Conjugate, PCV13 (Prevnar 13) Unknown Completed [facility] TDAP Unknown Completed [facility] Influenza High Dose Unknown Completed [facility] Influenza Virus Vaccine Unknown Completed [facility] SARS-COV-2 COVID-19 UNSPECIFIED VACCINE Unknown Completed [facility] Influenza Virus Vaccine Quad IM Multi-dose 6+ MO Unknown Completed [facility] Influenza Virus Vaccine,quad Im,preserve Free 65+ (FLUAD) Unknown Completed [facility] SARS-COV-2 COVID-19 VACCINE - (MODERNA) Unknown Completed [facility] Pneumococcal Polysaccharide, PPSV23 (PNEUMOVAX) Unknown Completed [facility] Pneumococcal 13 Conjugate, PCV13 (Prevnar 13) Unknown Completed [facility] TDAP Unknown Completed [facility] Influenza High Dose Unknown Completed [facility] Influenza Virus Vaccine Unknown Completed [facility] SARS-COV-2 COVID-19 UNSPECIFIED VACCINE Unknown Completed [facility] Influenza Virus Vaccine Quad IM Multi-dose 6+ MO Unknown Completed [facility] Influenza Virus Vaccine,quad Im,preserve Free 65+ (FLUAD) Unknown Completed [facility] SARS-COV-2 COVID-19 VACCINE - (MODERNA) Unknown Completed [facility] Pneumococcal Polysaccharide, PPSV23 (PNEUMOVAX) Unknown Completed [facility] Pneumococcal 13 Conjugate, PCV13 (Prevnar 13) Unknown Completed [facility] TDAP Unknown Completed [facility] Influenza High Dose Unknown Completed [facility] Influenza Virus Vaccine Unknown Completed [facility] SARS-COV-2 COVID-19 UNSPECIFIED VACCINE Unknown Completed [facility] Influenza Virus Vaccine Quad IM Multi-dose 6+ MO Unknown Completed [facility] Influenza Virus Vaccine,quad Im,preserve Free 65+ (FLUAD) Unknown Completed [facility] SARS-COV-2 COVID-19 VACCINE - (MODERNA) Unknown Completed [facility] Pneumococcal Polysaccharide, PPSV23 (PNEUMOVAX) Unknown Completed [facility] Pneumococcal 13 Conjugate, PCV13 (Prevnar 13) Unknown Completed [facility] TDAP Unknown Completed [facility] Influenza High Dose Unknown Completed [facility] Influenza Virus Vaccine Unknown Completed [facility] SARS-COV-2 COVID-19 UNSPECIFIED VACCINE Unknown Completed [facility] Influenza Virus Vaccine Quad IM Multi-dose 6+ MO Unknown Completed [facility] Influenza Virus Vaccine,quad Im,preserve Free 65+ (FLUAD) Unknown Completed [facility] SARS-COV-2 COVID-19 VACCINE - (MODERNA) Unknown Completed [facility] Pneumococcal Polysaccharide, PPSV23 (PNEUMOVAX) Unknown Completed [facility] Pneumococcal 13 Conjugate, PCV13 (Prevnar 13) Unknown Completed [facility] TDAP Unknown Completed [facility] Influenza High Dose Unknown Completed [facility] Influenza Virus Vaccine Unknown Completed [facility] SARS-COV-2 COVID-19 UNSPECIFIED VACCINE Unknown [facility] Influ[facility] Virus Vaccine Quad IM Multi-dose 6+ MO Unknown Completed [facility] Influenza Virus Vaccine,quad Im,preserve Free 65+ (FLUAD) Unknown Completed [facility] SARS-COV-2 COVID-19 VACCINE - (MODERNA) Unknown Completed [facility] Pneumococcal 13 Conjugate, PCV13 (Prevnar 13) Unknown Completed [facility] TDAP Unknown Completed [facility] Influenza Virus Vaccine Quad IM Multi-dose 6+ MO Unknown Completed [facility] Influenza Virus Vaccine,quad Im,preserve Free 65+ (FLUAD) Unknown Completed [facility] Pneumococcal Polysaccharide, PPSV23 (PNEUMOVAX) Unknown Completed [facility] Influenza High Dose Unknown Completed [facility] Influenza Virus Vaccine Unknown Completed [facility] SARS-COV-2 COVID-19 UNSPECIFIED VACCINE Unknown Completed [facility] SARS-COV-2 COVID-19 VACCINE - (MODERNA) Unknown Completed [facility] Pneumococcal Polysaccharide, PPSV23 (PNEUMOVAX) Unknown Completed [facility] Pneumococcal 13 Conjugate, PCV13 (Prevnar 13) Unknown Completed [facility] TDAP Unknown Completed [facility] Influenza High Dose Unknown Completed [facility] Influenza Virus Vaccine Unknown Completed [facility] SARS-COV-2 COVID-19 UNSPECIFIED VACCINE Unknown Completed [facility] Influenza Virus Vaccine Quad IM Multi-dose 6+ MO Unknown Completed [facility] Influenza Virus Vaccine,quad Im,preserve Free 65+ (FLUAD) Unknown Completed [facility] SARS-COV-2 COVID-19 VACCINE - (MODERNA) Unknown Completed [facility] Pneumococcal Polysaccharide, PPSV23 (PNEUMOVAX) Unknown Completed [facility] Pneumococcal 13 Conjugate, PCV13 (Prevnar 13) Unknown Completed [facility] TDAP Unknown Completed [facility] Influenza High Dose Unknown Completed [facility] Influenza Virus Vaccine Unknown Completed [facility] SARS-COV-2 COVID-19 UNSPECIFIED VACCINE Unknown Completed [facility] Influenza Virus Vaccine Quad IM Multi-dose 6+ MO Unknown Completed [facility] Influenza Virus Vaccine,quad Im,preserve Free 65+ (FLUAD) Unknown Completed [facility] SARS-COV-2 COVID-19 VACCINE - (MODERNA) Unknown Completed [facility] Pneumococcal Polysaccharide, PPSV23 (PNEUMOVAX) Unknown Completed [facility] Pneumococcal 13 Conjugate, PCV13 (Prevnar 13) Unknown Completed [facility] TDAP Unknown Completed [facility] Influenza High Dose Unknown Completed [facility] Influenza Virus Vaccine Unknown Completed [facility] SARS-COV-2 COVID-19 UNSPECIFIED VACCINE Unknown Completed [facility] Influenza Virus Vaccine Quad IM Multi-dose 6+ MO Unknown [facility] [facility] Influenza Virus Vaccine,quad Im,preserve Free 65+ (FLUAD) Unknown Completed [facility] SARS-COV-2 COVID-19 VACCINE - (MODERNA) Unknown Completed [facility] Pneumococcal Polysaccharide, PPSV23 (PNEUMOVAX) Unknown Completed [facility] Pneumococcal 13 Conjugate, PCV13 (Prevnar 13) Unknown Completed [facility] TDAP Unknown Completed [facility] Influenza High Dose Unknown Completed [facility] Influenza Virus Vaccine Unknown Completed [facility] SARS-COV-2 COVID-19 UNSPECIFIED VACCINE Unknown Completed [facility] Influenza Virus Vaccine Quad IM Multi-dose 6+ MO Unknown Completed [facility] Influenza Virus Vaccine,quad Im,preserve Free 65+ (FLUAD) Unknown Completed [facility] SARS-COV-2 COVID-19 VACCINE - (MODERNA) Unknown Completed [facility] Pneumococcal Polysaccharide, PPSV23 (PNEUMOVAX) Unknown Completed [facility] Pneumococcal 13 Conjugate, PCV13 (Prevnar 13) Unknown Completed [facility] TDAP Unknown Completed [facility] Influenza High Dose Unknown Completed [facility] Influenza Virus Vaccine Unknown Completed [facility] SARS-COV-2 COVID-19 UNSPECIFIED VACCINE Unknown Completed [facility] Influenza Virus Vaccine Quad IM Multi-dose 6+ MO Unknown Completed [facility] Influenza Virus Vaccine,quad Im,preserve Free 65+ (FLUAD) Unknown Completed [facility] SARS-COV-2 COVID-19 VACCINE - (MODERNA) Unknown Completed [facility] Pneumococcal Polysaccharide, PPSV23 (PNEUMOVAX) Unknown Completed [facility] Pneumococcal 13 Conjugate, PCV13 (Prevnar 13) Unknown Completed [facility] TDAP Unknown Completed [facility] Influenza High Dose Unknown Completed [facility] Influenza Virus Vaccine Unknown Completed [facility] SARS-COV-2 COVID-19 UNSPECIFIED VACCINE Unknown Completed [facility] Influenza Virus Vaccine Quad IM Multi-dose 6+ MO Unknown Completed [facility] Influenza Virus Vaccine,quad Im,preserve Free 65+ (FLUAD) Unknown Completed [facility] SARS-COV-2 COVID-19 VACCINE - (MODERNA) Unknown Completed [facility] Pneumococcal Polysaccharide, PPSV23 (PNEUMOVAX) Unknown Completed [facility] Pneumococcal 13 Conjugate, PCV13 (Prevnar 13) Unknown Completed [facility] TDAP Unknown Completed [facility] Influenza High Dose Unknown Completed [facility] Influenza Virus Vaccine Unknown Completed [facility] SARS-COV-2 COVID-19 UNSPECIFIED VACCINE Unknown Completed [facility] Influenza Virus Vaccine Quad IM Multi-dose 6+ MO Unknown Completed [facility] Influenza Virus Vaccine,quad Im,preserve Free 65+ (FLUAD) Unknown Completed [facility] SARS-COV-2 COVID-19 VACCINE - (MODERNA) Unknown Completed [facility] Pneumococcal Polysaccharide, PPSV23 (PNEUMOVAX) Unknown Completed [facility] Pneumococcal 13 Conjugate, PCV13 (Prevnar 13) Unknown Completed [facility] TDAP Unknown Completed [facility] Influenza High Dose Unknown Completed [facility] Influenza Virus Vaccine Unknown Completed [facility] SARS-COV-2 COVID-19 UNSPECIFIED VACCINE Unknown Completed [facility] Influenza Virus Vaccine Quad IM Multi-dose 6+ MO Unknown Completed [facility] Influenza Virus Vaccine,quad Im,preserve Free 65+ (FLUAD) Unknown Completed [facility] SARS-COV-2 COVID-19 VACCINE - (MODERNA) Unknown Completed [facility] Pneumococcal 13 Conjugate, PCV13 (Prevnar 13) Unknown Completed [facility] TDAP Unknown Completed [facility] Influenza Virus Vaccine Quad IM Multi-dose 6+ MO Unknown Completed [facility] Influenza Virus Vaccine,quad Im,preserve Free 65+ (FLUAD) Unknown Completed [facility] Pneumococcal Polysaccharide, PPSV23 (PNEUMOVAX) Unknown Completed [facility] Influenza High Dose Unknown Completed [facility] Influenza Virus Vaccine Unknown Completed [facility] SARS-COV-2 COVID-19 UNSPECIFIED VACCINE Unknown Completed [facility] SARS-COV-2 COVID-19 VACCINE - (MODERNA) Unknown Completed [facility] Pneumococcal Polysaccharide, PPSV23 (PNEUMOVAX) Unknown Completed [facility] Pneumococcal 13 Conjugate, PCV13 (Prevnar 13) Unknown Completed [facility] TDAP Unknown Completed [facility] Influenza High Dose Unknown Completed [facility] Influenza Virus Vaccine Unknown Completed [facility] SARS-COV-2 COVID-19 UNSPECIFIED VACCINE Unknown Completed [facility] Influenza Virus Vaccine Quad IM Multi-dose 6+ MO Unknown Completed [facility] Influenza Virus Vaccine,quad Im,preserve Free 65+ (FLUAD) Unknown Completed [facility] SARS-COV-2 COVID-19 VACCINE - (MODERNA) Unknown Completed [facility] Pneumococcal Polysaccharide, PPSV23 (PNEUMOVAX) Unknown Completed [facility] Pneumococcal 13 Conjugate, PCV13 (Prevnar 13) Unknown Completed [facility] TDAP Unknown Completed [facility] Influenza High Dose Unknown Completed [facility] Influenza Virus Vaccine Unknown Completed [facility] SARS-COV-2 COVID-19 UNSPECIFIED VACCINE Unknown Completed [facility] Influenza Virus Vaccine Quad IM Multi-dose 6+ MO Unknown Completed [facility] Influenza Virus Vaccine,quad Im,preserve Free 65+ (FLUAD) Unknown Completed [facility] SARS-COV-2 COVID-19 VACCINE - (MODERNA) Unknown Completed [facility] Pneumococcal Polysaccharide, PPSV23 (PNEUMOVAX) Unknown Completed [facility] Pneumococcal 13 Conjugate, PCV13 (Prevnar 13) Unknown Completed [facility] TDAP Unknown Completed [facility] Influenza High Dose Unknown Completed [facility] Influenza Virus Vaccine Unknown Completed [facility] SARS-COV-2 COVID-19 UNSPECIFIED VACCINE Unknown Completed [facility] Influenza Virus Vaccine Quad IM Multi-dose 6+ MO Unknown Completed [facility] Influenza Virus Vaccine,quad Im,preserve Free 65+ (FLUAD) Unknown Completed [facility] SARS-COV-2 COVID-19 VACCINE - (MODERNA) Unknown Completed [facility] Pneumococcal Polysaccharide, PPSV23 (PNEUMOVAX) Unknown Completed [facility] Pneumococcal 13 Conjugate, PCV13 (Prevnar 13) Unknown Completed [facility] TDAP Unknown Completed [facility] Influenza High Dose Unknown Completed [facility] Influenza Virus Vaccine Unknown Completed [facility] SARS-COV-2 COVID-19 UNSPECIFIED VACCINE Unknown Completed [facility] Influenza Virus Vaccine Quad IM Multi-dose 6+ MO Unknown Completed [facility] Influenza Virus Vaccine,quad Im,preserve Free 65+ (FLUAD) Unknown Completed [facility] SARS-COV-2 COVID-19 VACCINE - (MODERNA) Unknown Completed [facility] Pneumococcal Polysaccharide, PPSV23 (PNEUMOVAX) Unknown Completed [facility] Pneumococcal 13 Conjugate, PCV13 (Prevnar 13) Unknown Completed [facility] TDAP Unknown Completed [facility] Influenza High Dose Unknown Completed [facility] Influenza Virus Vaccine Unknown Completed [facility] SARS-COV-2 COVID-19 UNSPECIFIED VACCINE Unknown Completed [facility] Influenza Virus Vaccine Quad IM Multi-dose 6+ MO Unknown Completed [facility] Influenza Virus Vaccine,quad Im,preserve Free 65+ (FLUAD) Unknown Completed [facility] SARS-COV-2 COVID-19 VACCINE - (MODERNA) Unknown Completed [facility] Pneumococcal Polysaccharide, PPSV23 (PNEUMOVAX) Unknown Completed [facility] Pneumococcal 13 Conjugate, PCV13 (Prevnar 13) Unknown Completed [facility] TDAP Unknown Completed [facility] Influenza High Dose Unknown Completed [facility] Influenza Virus Vaccine Unknown Completed [facility] SARS-COV-2 COVID-19 UNSPECIFIED VACCINE Unknown Completed [facility] Influenza Virus Vaccine Quad IM Multi-dose 6+ MO Unknown Completed [facility] Influenza Virus Vaccine,quad Im,preserve Free 65+ (FLUAD) Unknown Completed [facility] SARS-COV-2 COVID-19 VACCINE - (MODERNA) Unknown Completed [facility] Pneumococcal 13 Conjugate, PCV13 (Prevnar 13) Unknown Completed [facility] TDAP Unknown Completed [facility] Influenza Virus Vaccine Quad IM Multi-dose 6+ MO Unknown Completed [facility] Influenza Virus Vaccine,quad Im,preserve Free 65+ (FLUAD) Unknown Completed [facility] Pneumococcal Polysaccharide, PPSV23 (PNEUMOVAX) [facility] Influenza Virus Vaccine Unknown Completed [facility] SARS-COV-2 COVID-19 UNSPECIFIED VACCINE Unknown [facility] VACCINE - (MODERNA) Unknown Completed [facility] Pneumococcal Polysaccharide, PPSV23 (PNEUMOVAX) Unknown Completed [facility] Pneumococcal 13 Conjugate, PCV13 (Prevnar 13) Unknown Completed [facility] TDAP Unknown Completed [facility] Influenza High Dose Unknown Completed [facility] Influenza Virus Vaccine Unknown Completed [facility] SARS-COV-2 COVID-19 UNSPECIFIED VACCINE Unknown Completed [facility] Influenza Virus Vaccine Quad IM Multi-dose 6+ MO Unknown Completed [facility] Influenza Virus Vaccine,quad Im,preserve Free 65+ (FLUAD) Unknown Completed [facility] SARS-COV-2 COVID-19 VACCINE - (MODERNA) Unknown Completed [facility] Pneumococcal Polysaccharide, PPSV23 (PNEUMOVAX) Unknown Completed [facility] Pneumococcal 13 Conjugate, PCV13 (Prevnar 13) Unknown Completed [facility] TDAP Unknown Completed [facility] Influenza High Dose Unknown Completed [facility] Influenza Virus Vaccine Unknown Completed [facility] SARS-COV-2 COVID-19 UNSPECIFIED VACCINE Unknown Completed [facility] Influenza Virus Vaccine Quad IM Multi-dose 6+ MO Unknown Completed [facility] Influenza Virus Vaccine,quad Im,preserve Free 65+ (FLUAD) Unknown Completed [facility] SARS-COV-2 COVID-19 VACCINE - (MODERNA) Unknown Completed [facility] Pneumococcal Polysaccharide, PPSV23 (PNEUMOVAX) Unknown Completed [facility] Pneumococcal 13 Conjugate, PCV13 (Prevnar 13) Unknown Completed [facility] TDAP Unknown Completed [facility] Influenza High Dose Unknown Completed [facility] Influenza Virus Vaccine Unknown Completed [facility] SARS-COV-2 COVID-19 UNSPECIFIED VACCINE Unknown Completed [facility] Influenza Virus Vaccine Quad IM Multi-dose 6+ MO Unknown Completed [facility] Influenza Virus Vaccine,quad Im,preserve Free 65+ (FLUAD) Unknown Completed [facility] SARS-COV-2 COVID-19 VACCINE - (MODERNA) Unknown Completed [facility] Pneumococcal Polysaccharide, PPSV23 (PNEUMOVAX) Unknown Completed [facility] Pneumococcal 13 Conjugate, PCV13 (Prevnar 13) Unknown Completed [facility] TDAP Unknown Completed [facility] Influenza High Dose Unknown Completed [facility] Influenza Virus Vaccine Unknown Completed [facility] SARS-COV-2 COVID-19 UNSPECIFIED VACCINE Unknown Completed [facility] Influenza Virus Vaccine Quad IM Multi-dose 6+ MO Unknown Completed [facility] Influenza Virus Vaccine,quad Im,preserve Free 65+ (FLUAD) Unknown Completed [facility] SARS-COV-2 COVID-19 VACCINE - (MODERNA) Unknown Completed [facility] Pneumococcal 13 Conjugate, PCV13 (Prevnar 13) Unknown Completed [facility] TDAP Unknown Completed [facility] Influenza Virus Vaccine Quad IM Multi-dose 6+ MO Unknown Completed [facility] Influenza Virus Vaccine,quad Im,preserve Free 65+ (FLUAD) Unknown Completed [facility] Pneumococcal Polysaccharide, PPSV23 (PNEUMOVAX) Unknown Completed [facility] Influenza High Dose Unknown Completed [facility] Influenza Virus Vaccine Unknown Completed [facility] SARS-COV-2 COVID-19 UNSPECIFIED VACCINE Unknown Completed [facility] SARS-COV-2 COVID-19 VACCINE - (MODERNA) Unknown Completed [facility] Pneumococcal Polysaccharide, PPSV23 (PNEUMOVAX) Unknown Completed [facility] Pneumococcal 13 Conjugate, PCV13 (Prevnar 13) Unknown Completed [facility] TDAP Unknown Completed [facility] Influenza High Dose Unknown Completed [facility] Influenza Virus Vaccine Unknown Completed [facility] SARS-COV-2 COVID-19 UNSPECIFIED VACCINE Unknown Completed [facility] Influenza Virus Vaccine Quad IM Multi-dose 6+ MO Unknown Completed [facility] Influenza Virus Vaccine,quad Im,preserve Free 65+ (FLUAD) Unknown Completed [facility] SARS-COV-2 COVID-19 VACCINE - (MODERNA) Unknown Completed [facility] Pneumococcal Polysaccharide, PPSV23 (PNEUMOVAX) Unknown Completed [facility] Pneumococcal 13 Conjugate, PCV13 (Prevnar 13) Unknown Completed [facility] TDAP Unknown Completed [facility] Influenza High Dose Unknown Completed [facility] Influenza Virus Vaccine Unknown Completed [facility] SARS-COV-2 COVID-19 UNSPECIFIED VACCINE Unknown Completed [facility] Influenza Virus Vaccine Quad IM Multi-dose 6+ MO Unknown Completed [facility] Influenza Virus Vaccine,quad Im,preserve Free 65+ (FLUAD) Unknown Completed [facility] SARS-COV-2 COVID-19 VACCINE - (MODERNA) Unknown Completed [facility] Pneumococcal Polysaccharide, PPSV23 (PNEUMOVAX) Unknown Completed [facility] Pneumococcal 13 Conjugate, PCV13 (Prevnar 13) Unknown Completed [facility] TDAP Unknown Completed [facility] Influenza High Dose Unknown Completed [facility] Influenza Virus Vaccine Unknown Completed [facility] SARS-COV-2 COVID-19 UNSPECIFIED VACCINE Unknown Completed [facility] Influenza Virus Vaccine Quad IM Multi-dose 6+ MO Unknown Completed [facility] Influenza Virus Vaccine,quad Im,preserve Free 65+ (FLUAD) Unknown Completed [facility] SARS-COV-2 COVID-19 VACCINE - (MODERNA) Unknown Completed [facility] Pneumococcal 13 Conjugate, PCV13 (Prevnar 13) Unknown Completed [facility] TDAP Unknown Completed [facility] Influenza Virus Vaccine Quad IM Multi-dose 6+ MO Unknown Completed [facility] Influenza Virus Vaccine,quad Im,preserve Free 65+ (FLUAD) Unknown Completed [facility] Pneumococcal Polysaccharide, PPSV23 (PNEUMOVAX) Unknown Completed [facility] Influenza High Dose Unknown Completed [facility] Influenza Virus Vaccine Unknown Completed [facility] SARS-COV-2 COVID-19 UNSPECIFIED VACCINE Unknown Completed [facility] SARS-COV-2 COVID-19 VACCINE - (MODERNA) Unknown Completed [facility] Pneumococcal Polysaccharide, PPSV23 (PNEUMOVAX) Unknown Completed [facility] Pneumococcal 13 Conjugate, PCV13 (Prevnar 13) Unknown Completed [facility] TDAP Unknown Completed [facility] Influenza High Dose Unknown Completed [facility] Influenza Virus Vaccine Unknown Completed [facility] SARS-COV-2 COVID-19 UNSPECIFIED VACCINE Unknown Completed [facility] Influenza Virus Vaccine Quad IM Multi-dose 6+ MO Unknown Completed [facility] Influenza Virus Vaccine,quad Im,preserve Free 65+ (FLUAD) Unknown Completed [facility] SARS-COV-2 COVID-19 VACCINE - (MODERNA) Unknown Completed [facility] Pneumococcal Polysaccharide, PPSV23 (PNEUMOVAX) Unknown Completed [facility] Pneumococcal 13 Conjugate, PCV13 (Prevnar 13) Unknown Completed [facility] TDAP Unknown Completed [facility] Influenza High Dose Unknown Completed [facility] Influenza Virus Vaccine Unknown Completed [facility] SARS-COV-2 COVID-19 UNSPECIFIED VACCINE Unknown Completed [facility] Influenza Virus Vaccine Quad IM Multi-dose 6+ MO Unknown Completed [facility] Influenza Virus Vaccine,quad Im,preserve Free 65+ (FLUAD) Unknown Completed [facility] SARS-COV-2 COVID-19 VACCINE - (MODERNA) Unknown Completed [facility] Pneumococcal Polysaccharide, PPSV23 (PNEUMOVAX) Unknown Completed [facility] Pneumococcal 13 Conjugate, PCV13 (Prevnar 13) Unknown Completed [facility] TDAP Unknown Completed [facility] Influenza High Dose Unknown Completed [facility] Influenza Virus Vaccine Unknown Completed [facility] SARS-COV-2 COVID-19 UNSPECIFIED VACCINE Unknown Completed [facility] Influenza Virus Vaccine Quad IM Multi-dose 6+ MO Unknown Completed [facility] Influenza Virus Vaccine,quad Im,preserve Free 65+ (FLUAD) Unknown Completed [facility] SARS-COV-2 COVID-19 VACCINE - (MODERNA) [facility] Com[facility] Pneumococcal Polysaccharide, PPSV23 (PNEUMOVAX) [facility] Con[facility], PCV13 (Prevnar 13) Unknown Completed [facility] TDAP Unknown Completed [facility] Influenza High Dose Unknown Completed [facility] Influenza Virus Vaccine Unknown Completed [facility] SARS-COV-2 COVID-19 UNSPECIFIED VACCINE Unknown Completed [facility] Influenza Virus Vaccine Quad IM Multi-dose 6+ MO Unknown Completed [facility] Influenza Virus Vaccine,quad Im,preserve Free 65+ (FLUAD) Unknown Completed [facility] SARS-COV-2 COVID-19 VACCINE - (MODERNA) Unknown Completed [facility] Pneumococcal Unspecified Unknown Completed [facility] Pneumococcal Polysaccharide, PPSV23 (PNEUMOVAX) Unknown Completed [facility] Pneumococcal 13 Conjugate, PCV13 (Prevnar 13) Unknown Completed [facility] TDAP Unknown Completed [facility] Influenza High Dose Unknown Completed [facility] Influenza Virus Vaccine Unknown Completed [facility] SARS-COV-2 COVID-19 UNSPECIFIED VACCINE Unknown Completed [facility] Influenza Virus Vaccine Quad IM Multi-dose 6+ MO Unknown Completed [facility] Influenza Virus Vaccine,quad Im,preserve Free 65+ (FLUAD) Unknown Completed [facility] SARS-COV-2 COVID-19 VACCINE - (MODERNA) Unknown [facility] Pneumococcal Unspecified Unknown Completed [facility] Pneumococcal Polysaccharide, PPSV23 (PNEUMOVAX) Unknown Completed [facility] Pneumococcal 13 Conjugate, PCV13 (Prevnar 13) Unknown Completed [facility] TDAP Unknown Completed [facility] Influenza High Dose Unknown Completed [facility] Influenza Virus Vaccine Unknown Completed [facility] SARS-COV-2 COVID-19 UNSPECIFIED VACCINE Unknown Completed [facility] Influenza Virus Vaccine Quad IM Multi-dose 6+ MO Unknown Completed [facility] Influenza Virus Vaccine,quad Im,preserve Free 65+ (FLUAD) Unknown Completed [facility] SARS-COV-2 COVID-19 VACCINE - (MODERNA) Unknown [facility] Pneumococcal Unspecified Unknown Completed [facility] Pneumococcal Polysaccharide, PPSV23 (PNEUMOVAX) Unknown Completed [facility] Pneumococcal 13 Conjugate, PCV13 (Prevnar 13) Unknown Completed [facility] TDAP Unknown Completed [facility] Influenza High Dose Unknown Completed [facility] Influenza Virus Vaccine Unknown Completed [facility] SARS-COV-2 COVID-19 UNSPECIFIED VACCINE Unknown Completed [facility] Influenza Virus Vaccine Quad IM Multi-dose 6+ MO Unknown Completed [facility] Influenza Virus Vaccine,quad Im,preserve Free 65+ (FLUAD) Unknown Completed [facility] SARS-COV-2 COVID-19 VACCINE - (MODERNA) Unknown [facility] Pneumococcal Unspecified Unknown Completed [facility] Pneumococcal Polysaccharide, PPSV23 (PNEUMOVAX) Unknown Completed [facility] Pneumococcal 13 Conjugate, PCV13 (Prevnar 13) Unknown Completed [facility] TDAP Unknown Completed [facility] Influenza High Dose Unknown Completed [facility] Influenza Virus Vaccine Unknown Completed [facility] SARS-COV-2 COVID-19 UNSPECIFIED VACCINE Unknown Completed [facility] Influenza Virus Vaccine Quad IM Multi-dose 6+ MO Unknown Completed [facility] Influenza Virus Vaccine,quad Im,preserve Free 65+ (FLUAD) Unknown Completed [facility] SARS-COV-2 COVID-19 VACCINE - (MODERNA) Unknown Completed [facility] Pneumococcal Unspecified Unknown Completed [facility] Pneumococcal Polysaccharide, PPSV23 (PNEUMOVAX) Unknown Completed [facility] Pneumococcal 13 Conjugate, PCV13 (Prevnar 13) Unknown Completed [facility] TDAP Unknown Completed [facility] Influenza High Dose Unknown Completed [facility] Influenza Virus Vaccine Unknown Completed [facility] SARS-COV-2 COVID-19 UNSPECIFIED VACCINE Unknown Completed [facility] Influenza Virus Vaccine Quad IM Multi-dose 6+ MO Unknown Completed [facility] Influenza Virus Vaccine,quad Im,preserve Free 65+ (FLUAD) Unknown Completed [facility] SARS-COV-2 COVID-19 VACCINE - (MODERNA) Unknown Completed [facility] Pneumococcal Unspecified Unknown Completed [facility] Pneumococcal Polysaccharide, PPSV23 (PNEUMOVAX) Unknown Completed [facility] Pneumococcal 13 Conjugate, PCV13 (Prevnar 13) Unknown Completed [facility] TDAP Unknown Completed [facility] Influenza High Dose Unknown Completed [facility] Influenza Virus Vaccine Unknown Completed [facility] SARS-COV-2 COVID-19 UNSPECIFIED VACCINE Unknown Completed [facility] Influenza Virus Vaccine Quad IM Multi-dose 6+ MO Unknown Completed [facility] Influenza Virus Vaccine,quad Im,preserve Free 65+ (FLUAD) Unknown Completed [facility] SARS-COV-2 COVID-19 VACCINE - (MODERNA) Unknown Completed [facility] Pneumococcal Unspecified Unknown Completed [facility] Pneumococcal Polysaccharide, PPSV23 (PNEUMOVAX) Unknown Completed [facility] Pneumococcal 13 Conjugate, PCV13 (Prevnar 13) Unknown Completed [facility] TDAP Unknown Completed [facility] Influenza High Dose Unknown Completed [facility] Influenza Virus Vaccine Unknown Completed [facility] SARS-COV-2 COVID-19 UNSPECIFIED VACCINE Unknown Completed [facility] Influenza Virus Vaccine Quad IM Multi-dose 6+ MO Unknown Completed [facility] Influenza Virus Vaccine,quad Im,preserve Free 65+ (FLUAD) Unknown Completed [facility] SARS-COV-2 COVID-19 VACCINE - (MODERNA) Unknown Completed [facility] Pneumococcal Unspecified Unknown Completed [facility] Pneumococcal Polysaccharide, PPSV23 (PNEUMOVAX) Unknown Completed [facility] Pneumococcal 13 Conjugate, PCV13 (Prevnar 13) Unknown Completed [facility] TDAP Unknown Completed [facility] Influenza High Dose Unknown Completed [facility] Influenza Virus Vaccine Unknown Completed [facility] SARS-COV-2 COVID-19 UNSPECIFIED VACCINE Unknown Com[facility] Influenza Virus Vaccine Quad IM Multi-dose 6+ MO Unknown Completed [facility] Influenza Virus Vaccine,quad Im,preserve Free 65+ (FLUAD) Unknown Completed [facility] SARS-COV-2 COVID-19 VACCINE - (MODERNA) Unknown Completed [facility] Pneumococcal Unspecified Unknown Completed [facility] Pneumococcal 13 Conjugate, PCV13 (Prevnar 13) Unknown Completed [facility] TDAP Unknown Completed [facility] Influenza Virus Vaccine Quad IM Multi-dose 6+ MO Unknown Completed [facility] Influenza Virus Vaccine,quad Im,preserve Free 65+ (FLUAD) Unknown Completed [facility] Pneumococcal Polysaccharide, PPSV23 (PNEUMOVAX) Unknown Completed [facility] Influenza High Dose Unknown Completed [facility] Influenza Virus Vaccine Unknown Completed [facility] SARS-COV-2 COVID-19 UNSPECIFIED VACCINE Unknown Completed [facility] SARS-COV-2 COVID-19 VACCINE - (MODERNA) Unknown Completed [facility] Pneumococcal Unspecified Unknown Completed [facility] Pneumococcal Polysaccharide, PPSV23 (PNEUMOVAX) Unknown Completed [facility] Pneumococcal 13 Conjugate, PCV13 (Prevnar 13) Unknown Completed [facility] TDAP Unknown Completed [facility] Influenza High Dose Unknown Completed [facility] Influenza Virus Vaccine Unknown Completed [facility] SARS-COV-2 COVID-19 UNSPECIFIED VACCINE Unknown Completed [facility] Influenza Virus Vaccine Quad IM Multi-dose 6+ MO Unknown Completed [facility] Influenza Virus Vaccine,quad Im,preserve Free 65+ (FLUAD) Unknown Completed [facility] SARS-COV-2 COVID-19 VACCINE - (MODERNA) Unknown Completed [facility] Pneumococcal Unspecified Unknown Completed [facility] Pneumococcal Polysaccharide, PPSV23 (PNEUMOVAX) Unknown Completed [facility] Pneumococcal 13 Conjugate, PCV13 (Prevnar 13) Unknown Completed [facility] TDAP Unknown Completed [facility] Influenza High Dose Unknown Completed [facility] Influenza Virus Vaccine Unknown Completed [facility] SARS-COV-2 COVID-19 UNSPECIFIED VACCINE Unknown Completed [facility] Influenza Virus Vaccine Quad IM Multi-dose 6+ MO Unknown Completed [facility] Influenza Virus Vaccine,quad Im,preserve Free 65+ (FLUAD) Unknown Completed [facility] SARS-COV-2 COVID-19 VACCINE - (MODERNA) Unknown Completed [facility] Pneumococcal Unspecified Unknown Completed [facility] Pneumococcal 13 Conjugate, PCV13 (Prevnar 13) Unknown Completed [facility] TDAP Unknown Completed [facility] Influenza High Dose Unknown Completed [facility] Influenza Virus Vaccine Unknown Completed [facility] SARS-COV-2 COVID-19 UNSPECIFIED VACCINE Unknown Completed [facility] Influenza Virus Vaccine Quad IM Multi-dose 6+ MO Unknown Completed [facility] Pneumococcal Polysaccharide, PPSV23 (PNEUMOVAX) Unknown Completed [facility] Influenza Virus Vaccine,quad Im,preserve Free 65+ (FLUAD) Unknown Completed [facility] SARS-COV-2 COVID-19 VACCINE - (MODERNA) Unknown Completed [facility] Pneumococcal Unspecified Unknown Completed [facility] Pneumococcal 13 Conjugate, PCV13 (Prevnar 13) Unknown Completed [facility] TDAP Unknown Completed [facility] Influenza Virus Vaccine Quad IM Multi-dose 6+ MO Unknown Completed [facility] Influenza Virus Vaccine,quad Im,preserve Free 65+ (FLUAD) Unknown Completed [facility] Pneumococcal Polysaccharide, PPSV23 (PNEUMOVAX) Unknown Completed [facility] Influenza High Dose Unknown Completed [facility] Influenza Virus Vaccine Unknown Completed [facility] SARS-COV-2 COVID-19 UNSPECIFIED VACCINE Unknown Completed [facility] SARS-COV-2 COVID-19 VACCINE - (MODERNA) Unknown Completed [facility] Pneumococcal Unspecified Unknown Completed [facility] Pneumococcal Polysaccharide, PPSV23 (PNEUMOVAX) Unknown Completed [facility] Pneumococcal 13 Conjugate, PCV13 (Prevnar 13) Unknown Completed [facility] TDAP Unknown Completed [facility] Influenza High Dose Unknown Completed [facility] Influenza Virus Vaccine Unknown Completed [facility] SARS-COV-2 COVID-19 UNSPECIFIED VACCINE Unknown Completed [facility] Influenza Virus Vaccine Quad IM Multi-dose 6+ MO Unknown Completed [facility] Influenza Virus Vaccine,quad Im,preserve Free 65+ (FLUAD) Unknown Completed [facility] SARS-COV-2 COVID-19 VACCINE - (MODERNA) Unknown Completed [facility] Pneumococcal Unspecified Unknown Completed [facility] Pneumococcal Polysaccharide, PPSV23 (PNEUMOVAX) Unknown Completed [facility] Pneumococcal 13 Conjugate, PCV13 (Prevnar 13) Unknown Completed [facility] TDAP Unknown Completed [facility] Influenza High Dose Unknown Completed [facility] Influenza Virus Vaccine Unknown Completed [facility] SARS-COV-2 COVID-19 UNSPECIFIED VACCINE Unknown Completed [facility] Influenza Virus Vaccine Quad IM Multi-dose 6+ MO Unknown Completed [facility] Influenza Virus Vaccine,quad Im,preserve Free 65+ (FLUAD) Unknown Completed [facility] SARS-COV-2 COVID-19 VACCINE - (MODERNA) Unknown Completed [facility] Pneumococcal Unspecified Unknown Completed [facility] Pneumococcal Polysaccharide, PPSV23 (PNEUMOVAX) Unknown Completed [facility] Pneumococcal 13 Conjugate, PCV13 (Prevnar 13) Unknown Completed [facility] TDAP Unknown Completed [facility] Influenza High Dose Unknown Completed [facility] Influenza Virus Vaccine Unknown Completed [facility] SARS-COV-2 COVID-19 UNSPECIFIED VACCINE Unknown Completed [facility] Influenza Virus Vaccine Quad IM Multi-dose 6+ MO Unknown Completed [facility] Influenza Virus Vaccine,quad Im,preserve Free 65+ (FLUAD) Unknown Completed [facility] SARS-COV-2 COVID-19 VACCINE - (MODERNA) Unknown Completed [facility] Pneumococcal Unspecified Unknown Completed [facility] Pneumococcal 13 Conjugate, PCV13 (Prevnar 13) Unknown Completed [facility] TDAP Unknown Completed [facility] Influenza Virus Vaccine Quad IM Multi-dose 6+ MO Unknown Completed [facility] Influenza Virus Vaccine,quad Im,preserve Free 65+ (FLUAD) Unknown Completed [facility] Pneumococcal Polysaccharide, PPSV23 (PNEUMOVAX) Unknown Completed [facility] Pneumococcal 13 Conjugate, PCV13 (Prevnar 13) Unknown Completed [facility] TDAP Unknown Completed [facility] Influenza High Dose Unknown Completed [facility] Influenza Virus Vaccine Unknown Completed [facility] SARS-COV-2 COVID-19 UNSPECIFIED VACCINE Unknown Completed [facility] Influenza Virus Vaccine Quad IM Multi-dose 6+ MO Unknown Completed [facility] Influenza Virus Vaccine,quad Im,preserve Free 65+ (FLUAD) Unknown Completed [facility] SARS-COV-2 COVID-19 VACCINE - (MODERNA) Unknown Completed [facility] Pneumococcal Unspecified Unknown Completed [facility] Pneumococcal Polysaccharide, PPSV23 (PNEUMOVAX) Unknown Completed [facility] Pneumococcal 13 Conjugate, PCV13 (Prevnar 13) Unknown Completed [facility] TDAP Unknown Completed [facility] Influenza High Dose Unknown Completed [facility] Influenza Virus Vaccine Unknown Completed [facility] SARS-COV-2 COVID-19 UNSPECIFIED VACCINE Unknown Completed [facility] Influenza Virus Vaccine Quad IM Multi-dose 6+ MO Unknown Completed [facility] Influenza Virus Vaccine,quad Im,preserve Free 65+ (FLUAD) Unknown Completed [facility] SARS-COV-2 COVID-19 VACCINE - (MODERNA) Unknown Completed [facility] Pneumococcal Unspecified Unknown Completed [facility] Pneumococcal Polysaccharide, PPSV23 (PNEUMOVAX) Unknown Completed [facility] Pneumococcal 13 Conjugate, PCV13 (Prevnar 13) Unknown Completed [facility] TDAP Unknown Completed [facility] Influenza High Dose Unknown Completed [facility] Influenza Virus Vaccine Unknown Completed [facility] SARS-COV-2 COVID-19 UNSPECIFIED VACCINE Unknown Completed [facility] Influenza Virus Vaccine Quad IM Multi-dose 6+ MO Unknown Completed [facility] Influenza Virus Vaccine,quad Im,preserve Free 65+ (FLUAD) Unknown Completed [facility] SARS-COV-2 COVID-19 VACCINE - (MODERNA) Unknown Completed [facility] Pneumococcal Unspecified Unknown Completed [facility] Pneumococcal Polysaccharide, PPSV23 (PNEUMOVAX) Unknown Completed [facility] Pneumococcal 13 Conjugate, PCV13 (Prevnar 13) Unknown Completed [facility] TDAP Unknown Completed [facility] Influenza High Dose Unknown Completed [facility] Influenza Virus Vaccine Unknown Completed [facility] SARS-COV-2 COVID-19 UNSPECIFIED VACCINE Unknown Completed [facility] Influenza Virus Vaccine Quad IM Multi-dose 6+ MO Unknown Completed [facility] Influenza Virus Vaccine,quad Im,preserve Free 65+ (FLUAD) Unknown Completed [facility] SARS-COV-2 COVID-19 VACCINE - (MODERNA) Unknown Completed [facility] Pneumococcal Unspecified Unknown Completed [facility] Pneumococcal Polysaccharide, PPSV23 (PNEUMOVAX) Unknown Completed [facility] Influenza High Dose Unknown Completed [facility] Influenza Virus Vaccine Unknown Completed [facility] SARS-COV-2 COVID-19 UNSPECIFIED VACCINE Unknown Completed [facility] SARS-COV-2 COVID-19 VACCINE - (MODERNA) Unknown Completed [facility] Pneumococcal Unspecified Unknown Completed [facility] Pneumococcal Polysaccharide, PPSV23 (PNEUMOVAX) Unknown Completed [facility] Pneumococcal 13 Conjugate, PCV13 (Prevnar 13) Unknown Completed [facility] TDAP Unknown Completed [facility] Influenza High Dose Unknown Completed [facility] Influenza Virus Vaccine Unknown Completed [facility] SARS-COV-2 COVID-19 UNSPECIFIED VACCINE Unknown Completed [facility] Influenza Virus Vaccine Quad IM Multi-dose 6+ MO Unknown Completed [facility] Influenza Virus Vaccine,quad Im,preserve Free 65+ (FLUAD) Unknown Completed [facility] SARS-COV-2 COVID-19 VACCINE - (MODERNA) Unknown Completed [facility] Pneumococcal Unspecified Unknown Completed [facility] Pneumococcal Polysaccharide, PPSV23 (PNEUMOVAX) Unknown Completed [facility] Pneumococcal 13 Conjugate, PCV13 (Prevnar 13) Unknown Completed [facility] TDAP Unknown Completed [facility] Influenza High Dose Unknown Completed [facility] Influenza Virus Vaccine Unknown Completed [facility] SARS-COV-2 COVID-19 UNSPECIFIED VACCINE Unknown Completed [facility] Influenza Virus Vaccine Quad IM Multi-dose 6+ MO Unknown Completed [facility] Influenza Virus Vaccine,quad Im,preserve Free 65+ (FLUAD) Unknown Completed [facility] SARS-COV-2 COVID-19 VACCINE - (MODERNA) Unknown Completed [facility] Pneumococcal Unspecified Unknown Completed [facility] Pneumococcal 13 Conjugate, PCV13 (Prevnar 13) Unknown Completed [facility] TDAP Unknown Completed [facility] Influenza Virus Vaccine Quad IM Multi-dose 6+ MO Unknown Completed [facility] Influenza Virus Vaccine,quad Im,preserve Free 65+ (FLUAD) Unknown Completed [facility] Pneumococcal Polysaccharide, PPSV23 (PNEUMOVAX) Unknown Completed [facility] Influenza High Dose Unknown Completed [facility] Influenza Virus Vaccine Unknown Completed [facility] SARS-COV-2 COVID-19 UNSPECIFIED VACCINE Unknown Completed [facility] SARS-COV-2 COVID-19 VACCINE - (MODERNA) Unknown Completed [facility] Pneumococcal Unspecified Unknown Completed [facility] Pneumococcal Polysaccharide, PPSV23 (PNEUMOVAX) Unknown Completed [facility] Pneumococcal 13 Conjugate, PCV13 (Prevnar 13) Unknown Completed [facility] TDAP Unknown Completed [facility] Influenza High Dose Unknown Completed [facility] Influenza Virus Vaccine Unknown Completed [facility] SARS-COV-2 COVID-19 UNSPECIFIED VACCINE Unknown Completed [facility] Influenza Virus Vaccine Quad IM Multi-dose 6+ MO Unknown Completed [facility] Influenza Virus Vaccine,quad Im,preserve Free 65+ (FLUAD) Unknown Completed [facility] SARS-COV-2 COVID-19 VACCINE - (MODERNA) Unknown Completed [facility] Pneumococcal Unspecified Unknown Completed [facility] Pneumococcal Polysaccharide, PPSV23 (PNEUMOVAX) Unknown Completed [facility] Pneumococcal 13 Conjugate, PCV13 (Prevnar 13) Unknown Completed [facility] TDAP Unknown Completed [facility] Influenza High Dose Unknown Completed [facility] Influenza Virus Vaccine Unknown Completed [facility] SARS-COV-2 COVID-19 UNSPECIFIED VACCINE Unknown Completed [facility] [facility] Influenza Virus Vaccine Quad IM Multi-dose 6+ MO Unknown Completed [facility] Influenza Virus Vaccine,quad Im,preserve Free 65+ (FLUAD) Unknown Completed [facility] SARS-COV-2 COVID-19 VACCINE - (MODERNA) Unknown Completed [facility] Pneumococcal Unspecified Unknown Completed [facility] Pneumococcal Polysaccharide, PPSV23 (PNEUMOVAX) Unknown Completed [facility] Pneumococcal 13 Conjugate, PCV13 (Prevnar 13) Unknown Completed [facility] TDAP Unknown Completed [facility] Influenza High Dose Unknown Completed [facility] Influenza Virus Vaccine Unknown Completed [facility] SARS-COV-2 COVID-19 UNSPECIFIED VACCINE Unknown Completed [facility] Influenza Virus Vaccine Quad IM Multi-dose 6+ MO Unknown Completed [facility] Influenza Virus Vaccine,quad Im,preserve Free 65+ (FLUAD) Unknown Completed [facility] SARS-COV-2 COVID-19 VACCINE - (MODERNA) Unknown Completed [facility] Pneumococcal Unspecified Unknown Completed [facility] Pneumococcal Polysaccharide, PPSV23 (PNEUMOVAX) Unknown Completed [facility] Pneumococcal 13 Conjugate, PCV13 (Prevnar 13) Unknown Completed [facility] TDAP Unknown Completed [facility] Influenza High Dose Unknown Completed [facility] Influenza Virus Vaccine Unknown Completed [facility] SARS-COV-2 COVID-19 UNSPECIFIED VACCINE Unknown Completed [facility] Influenza Virus Vaccine Quad IM Multi-dose 6+ MO Unknown Completed [facility] Influenza Virus Vaccine,quad Im,preserve Free 65+ (FLUAD) Unknown Completed [facility] SARS-COV-2 COVID-19 VACCINE - (MODERNA) Unknown Completed [facility] Pneumococcal Unspecified Unknown Completed [facility] Pneumococcal Polysaccharide, PPSV23 (PNEUMOVAX) Unknown Completed [facility] Pneumococcal 13 Conjugate, PCV13 (Prevnar 13) Unknown Completed [facility] TDAP Unknown Completed [facility] Influenza High Dose Unknown Completed [facility] Influenza Virus Vaccine Unknown Completed [facility] SARS-COV-2 COVID-19 UNSPECIFIED VACCINE Unknown Completed [facility] Influenza Virus Vaccine Quad IM Multi-dose 6+ MO Unknown Completed [facility] Influenza Virus Vaccine,quad Im,preserve Free 65+ (FLUAD) Unknown Completed [facility] SARS-COV-2 COVID-19 VACCINE - (MODERNA) Unknown Completed [facility] Pneumococcal Unspecified Unknown Completed [facility] Pneumococcal Polysaccharide, PPSV23 (PNEUMOVAX) Unknown Completed [facility] Pneumococcal 13 Conjugate, PCV13 (Prevnar 13) Unknown Completed [facility] TDAP Unknown Completed [facility] Influenza High Dose Unknown Completed [facility] Influenza Virus Vaccine Unknown Completed [facility] SARS-COV-2 COVID-19 UNSPECIFIED VACCINE Unknown Completed [facility] Influenza Virus Vaccine Quad IM Multi-dose 6+ MO Unknown Completed [facility] Influenza Virus Vaccine,quad Im,preserve Free 65+ (FLUAD) Unknown Completed [facility] SARS-COV-2 COVID-19 VACCINE - (MODERNA) Unknown Completed [facility] Pneumococcal Unspecified Unknown Completed [facility] Pneumococcal Polysaccharide, PPSV23 (PNEUMOVAX) Unknown Completed [facility] Pneumococcal 13 Conjugate, PCV13 (Prevnar 13) Unknown Completed [facility] TDAP Unknown Completed [facility] Influenza High Dose Unknown Completed [facility] Influenza Virus Vaccine Unknown Completed [facility] SARS-COV-2 COVID-19 UNSPECIFIED VACCINE Unknown Completed [facility] Influenza Virus Vaccine Quad IM Multi-dose 6+ MO Unknown Completed [facility] Influenza Virus Vaccine,quad Im,preserve Free 65+ (FLUAD) Unknown Completed [facility] SARS-COV-2 COVID-19 VACCINE - (MODERNA) Unknown Completed [facility] Pneumococcal Unspecified Unknown Completed [facility] Pneumococcal Polysaccharide, PPSV23 (PNEUMOVAX) Unknown Completed [facility] Pneumococcal 13 Conjugate, PCV13 (Prevnar 13) Unknown Completed [facility] TDAP Unknown Completed [facility] Influenza High Dose Unknown Completed [facility] Influenza Virus Vaccine Unknown Completed [facility] SARS-COV-2 COVID-19 UNSPECIFIED VACCINE Unknown Completed [facility] Influenza Virus Vaccine Quad IM Multi-dose 6+ MO Unknown Completed [facility] Influenza Virus Vaccine,quad Im,preserve Free 65+ (FLUAD) Unknown Completed [facility] SARS-COV-2 COVID-19 VACCINE - (MODERNA) Unknown Completed [facility] Pneumococcal Unspecified Unknown Completed [facility] Pneumococcal Polysaccharide, PPSV23 (PNEUMOVAX) Unknown Completed [facility] Pneumococcal 13 Conjugate, PCV13 (Prevnar 13) Unknown Completed [facility] TDAP Unknown Completed [facility] Influenza High Dose Unknown Completed [facility] Influenza Virus Vaccine Unknown Completed [facility] SARS-COV-2 COVID-19 UNSPECIFIED VACCINE Unknown Completed [facility] Influenza Virus Vaccine Quad IM Multi-dose 6+ MO Unknown Completed [facility] Influenza Virus Vaccine,quad Im,preserve Free 65+ (FLUAD) Unknown Completed [facility] SARS-COV-2 COVID-19 VACCINE - (MODERNA) Unknown Completed [facility] Pneumococcal Unspecified Unknown Completed [facility] Pneumococcal Polysaccharide, PPSV23 (PNEUMOVAX) Unknown Completed [facility] Pneumococcal 13 Conjugate, PCV13 (Prevnar 13) Unknown Completed [facility] TDAP Unknown Completed [facility] Influenza High Dose Unknown Completed [facility] Influenza Virus Vaccine Unknown Completed [facility] SARS-COV-2 COVID-19 UNSPECIFIED VACCINE Unknown Completed [facility] Influenza Virus Vaccine Quad IM Multi-dose 6+ MO Unknown Completed [facility] Influenza Virus Vaccine,quad Im,preserve Free 65+ (FLUAD) Unknown Completed [facility] SARS-COV-2 COVID-19 VACCINE - (MODERNA) Unknown Completed [facility] Pneumococcal Unspecified Unknown Completed [facility] Pneumococcal Polysaccharide, PPSV23 (PNEUMOVAX) Unknown Completed [facility] Pneumococcal 13 Conjugate, PCV13 (Prevnar 13) Unknown Completed [facility] TDAP Unknown Completed [facility] Influenza High Dose Unknown Completed [facility] Influenza Virus Vaccine Unknown Completed [facility] SARS-COV-2 COVID-19 UNSPECIFIED VACCINE Unknown Completed [facility] Influenza Virus Vaccine Quad IM Multi-dose 6+ MO Unknown Completed [facility] Influenza Virus Vaccine,quad Im,preserve Free 65+ (FLUAD) Unknown Completed [facility] SARS-COV-2 COVID-19 VACCINE - (MODERNA) Unknown Completed [facility] Pneumococcal Unspecified Unknown Completed [facility] Pneumococcal Polysaccharide, PPSV23 (PNEUMOVAX) Unknown Completed [facility] Pneumococcal 13 Conjugate, PCV13 (Prevnar 13) Unknown Completed [facility] TDAP Unknown Completed [facility] Influenza High Dose Unknown Completed [facility] Influenza Virus Vaccine Unknown Completed [facility] SARS-COV-2 COVID-19 UNSPECIFIED VACCINE Unknown Completed [facility] Influenza Virus Vaccine Quad IM Multi-dose 6+ MO Unknown Completed [facility] Influenza Virus Vaccine,quad Im,preserve Free 65+ (FLUAD) Unknown Completed [facility] SARS-COV-2 COVID-19 VACCINE - (MODERNA) Unknown Completed [facility] Pneumococcal Unspecified Unknown Completed [facility] Pneumococcal Polysaccharide, PPSV23 (PNEUMOVAX) Unknown Completed [facility] Pneumococcal 13 Conjugate, PCV13 (Prevnar 13) Unknown Completed [facility] TDAP Unknown Completed [facility] Influenza High Dose Unknown Completed [facility] Influenza Virus Vaccine Unknown Completed [facility] SARS-COV-2 COVID-19 UNSPECIFIED VACCINE Unknown Completed [facility] Influenza Virus Vaccine Quad IM Multi-dose 6+ MO Unknown Completed [facility] Influenza Virus Vaccine,quad Im,preserve Free 65+ (FLUAD) Unknown Completed [facility] SARS-COV-2 COVID-19 VACCINE - (MODERNA) Unknown Completed [facility] Pneumococcal Unspecified Unknown Completed [facility] Pneumococcal Polysaccharide, PPSV23 (PNEUMOVAX) Unknown Completed [facility] Pneumococcal 13 Conjugate, PCV13 (Prevnar 13) Unknown Completed [facility] TDAP Unknown Completed [facility] Influenza High Dose Unknown Completed [facility] Influenza Virus Vaccine Unknown Completed [facility] SARS-COV-2 COVID-19 UNSPECIFIED VACCINE Unknown Completed [facility] Influenza Virus Vaccine Quad IM Multi-dose 6+ MO Unknown Completed [facility] Influenza Virus Vaccine,quad Im,preserve Free 65+ (FLUAD) Unknown Completed [facility] SARS-COV-2 COVID-19 VACCINE - (MODERNA) Unknown Completed [facility] Pneumococcal Unspecified Unknown Completed [facility] Pneumococcal Polysaccharide, PPSV23 (PNEUMOVAX) Unknown Completed [facility] Pneumococcal 13 Conjugate, PCV13 (Prevnar 13) Unknown Completed [facility] TDAP Unknown Completed [facility] Influenza High Dose Unknown Completed [facility] Influenza Virus Vaccine Unknown Completed [facility] SARS-COV-2 COVID-19 UNSPECIFIED VACCINE Unknown Completed [facility] Influenza Virus Vaccine Quad IM Multi-dose 6+ MO Unknown Completed [facility] Influenza Virus Vaccine,quad Im,preserve Free 65+ (FLUAD) Unknown Completed [facility] SARS-COV-2 COVID-19 VACCINE - (MODERNA) Unknown Completed [facility] Pneumococcal Unspecified Unknown Completed [facility] Pneumococcal Polysaccharide, PPSV23 (PNEUMOVAX) Unknown Completed [facility] Pneumococcal 13 Conjugate, PCV13 (Prevnar 13) Unknown Completed [facility] TDAP Unknown Completed [facility] Influenza High Dose Unknown Completed [facility] Influenza Virus Vaccine Unknown Completed [facility] SARS-COV-2 COVID-19 UNSPECIFIED VACCINE Unknown Completed [facility] Influenza Virus Vaccine Quad IM Multi-dose 6+ MO Unknown Completed [facility] Influenza Virus Vaccine,quad Im,preserve Free 65+ (FLUAD) Unknown Completed [facility] SARS-COV-2 COVID-19 VACCINE - (MODERNA) Unknown Completed [facility] Pneumococcal Unspecified Unknown Completed [facility] Pneumococcal Polysaccharide, PPSV23 (PNEUMOVAX) Unknown Completed [facility] Pneumococcal 13 Conjugate, PCV13 (Prevnar 13) Unknown Completed [facility] TDAP Unknown Completed [facility] Influenza High Dose Unknown Completed [facility] Influenza Virus Vaccine Unknown Completed [facility] SARS-COV-2 COVID-19 UNSPECIFIED VACCINE Unknown Completed [facility] Influenza Virus Vaccine Quad IM Multi-dose 6+ MO Unknown Completed [facility] Influenza Virus Vaccine,quad Im,preserve Free 65+ (FLUAD) Unknown Completed [facility] SARS-COV-2 COVID-19 VACCINE - (MODERNA) Unknown Completed [facility] Pneumococcal Unspecified Unknown Completed [facility] Pneumococcal Polysaccharide, PPSV23 (PNEUMOVAX) Unknown Completed [facility] Pneumococcal 13 Conjugate, PCV13 (Prevnar 13) Unknown Completed [facility] TDAP Unknown Completed [facility] Influenza High Dose Unknown Completed [facility] Influenza Virus Vaccine Unknown Completed [facility] SARS-COV-2 COVID-19 UNSPECIFIED VACCINE Unknown Completed [facility] Influenza Virus Vaccine Quad IM Multi-dose 6+ MO Unknown Completed [facility] Influenza Virus Vaccine,quad Im,preserve Free 65+ (FLUAD) Unknown Completed [facility] SARS-COV-2 COVID-19 VACCINE - (MODERNA) Unknown Completed [facility] Pneumococcal Unspecified Unknown Completed [facility] Pneumococcal Polysaccharide, PPSV23 (PNEUMOVAX) Unknown Completed [facility] Pneumococcal 13 Conjugate, PCV13 (Prevnar 13) Unknown Completed [facility] TDAP Unknown Completed [facility] Influenza High Dose Unknown Completed [facility] Influenza Virus Vaccine Unknown Completed [facility] SARS-COV-2 COVID-19 UNSPECIFIED VACCINE Unknown Completed [facility] Influenza Virus Vaccine Quad IM Multi-dose 6+ MO Unknown Completed [facility] Influenza Virus Vaccine,quad Im,preserve Free 65+ (FLUAD) Unknown Completed [facility] SARS-COV-2 COVID-19 VACCINE - (MODERNA) Unknown Completed [facility] Pneumococcal Unspecified Unknown Completed [facility] Pneumococcal Polysaccharide, PPSV23 (PNEUMOVAX) Unknown Completed [facility] Pneumococcal 13 Conjugate, PCV13 (Prevnar 13) Unknown Completed [facility] TDAP Unknown Completed [facility] Influenza High Dose Unknown Completed [facility] Influenza Virus Vaccine Unknown Completed [facility] SARS-COV-2 COVID-19 UNSPECIFIED VACCINE Unknown Completed [facility] Influenza Virus Vaccine Quad IM Multi-dose 6+ MO Unknown Completed [facility] Influenza Virus Vaccine,quad Im,preserve Free 65+ (FLUAD) Unknown Completed [facility] SARS-COV-2 COVID-19 VACCINE - (MODERNA) Unknown Completed [facility] Pneumococcal Unspecified Unknown Completed [facility] Pneumococcal Polysaccharide, PPSV23 (PNEUMOVAX) Unknown Completed [facility] Pneumococcal 13 Conjugate, PCV13 (Prevnar 13) Unknown Completed [facility] TDAP Unknown Completed [facility] Influenza High Dose Unknown Completed [facility] Influenza Virus Vaccine Unknown Completed [facility] SARS-COV-2 COVID-19 UNSPECIFIED VACCINE Unknown Completed [facility] Influenza Virus Vaccine Quad IM Multi-dose 6+ MO Unknown Completed [facility] Influenza Virus Vaccine,quad Im,preserve Free 65+ (FLUAD) Unknown Completed [facility] SARS-COV-2 COVID-19 VACCINE - (MODERNA) Unknown Completed [facility] Pneumococcal Unspecified Unknown Completed [facility] Pneumococcal 13 Conjugate, PCV13 (Prevnar 13) Unknown Completed [facility] TDAP Unknown Completed [facility] Influenza High Dose Unknown Completed [facility] Influenza Virus Vaccine Unknown Completed [facility] Pneumococcal Polysaccharide, PPSV23 (PNEUMOVAX) Unknown Completed [facility] SARS-COV-2 COVID-19 UNSPECIFIED VACCINE Unknown Completed [facility] Influenza Virus Vaccine Quad IM Multi-dose 6+ MO Unknown Completed [facility] Influenza Virus Vaccine,quad Im,preserve Free 65+ (FLUAD) Unknown Completed [facility] SARS-COV-2 COVID-19 VACCINE - (MODERNA) Unknown Completed [facility] Pneumococcal Unspecified Unknown Completed [facility] Pneumococcal Polysaccharide, PPSV23 (PNEUMOVAX) Unknown Completed [facility] Pneumococcal 13 Conjugate, PCV13 (Prevnar 13) Unknown Completed [facility] TDAP Unknown Completed [facility] Influenza High Dose Unknown Completed [facility] Influenza Virus Vaccine Unknown Completed [facility] SARS-COV-2 COVID-19 UNSPECIFIED VACCINE Unknown Completed [facility] Influenza Virus Vaccine Quad IM Multi-dose 6+ MO Unknown Completed [facility] Influenza Virus Vaccine,quad Im,preserve Free 65+ (FLUAD) Unknown Completed [facility] SARS-COV-2 COVID-19 VACCINE - (MODERNA) Unknown Completed [facility] Pneumococcal Unspecified Unknown Completed [facility] Pneumococcal Polysaccharide, PPSV23 (PNEUMOVAX) Unknown Completed [facility] Pneumococcal 13 Conjugate, PCV13 (Prevnar 13) Unknown Completed [facility] TDAP Unknown Completed [facility] Influenza High Dose Unknown Completed [facility] Influenza Virus Vaccine Unknown Completed [facility] SARS-COV-2 COVID-19 UNSPECIFIED VACCINE Unknown Completed [facility] Influenza Virus Vaccine Quad IM Multi-dose 6+ MO Unknown Completed [facility] Influenza Virus Vaccine,quad Im,preserve Free 65+ (FLUAD) Unknown Completed [facility] SARS-COV-2 COVID-19 VACCINE - (MODERNA) Unknown Completed [facility] Pneumococcal Unspecified Unknown Completed [facility] Pneumococcal Polysaccharide, PPSV23 (PNEUMOVAX) Unknown Completed [facility] Pneumococcal 13 Conjugate, PCV13 (Prevnar 13) Unknown Completed [facility] TDAP Unknown Completed [facility] Influenza High Dose Unknown Completed [facility] Influenza Virus Vaccine Unknown Completed [facility] SARS-COV-2 COVID-19 UNSPECIFIED VACCINE Unknown Completed [facility] Influenza Virus Vaccine Quad IM Multi-dose 6+ MO Unknown Completed [facility] Influenza Virus Vaccine,quad Im,preserve Free 65+ (FLUAD) Unknown Completed [facility] SARS-COV-2 COVID-19 VACCINE - (MODERNA) Unknown Completed [facility] Pneumococcal Unspecified Unknown Completed [facility] Pneumococcal Polysaccharide, PPSV23 (PNEUMOVAX) Unknown Completed [facility] Pneumococcal 13 Conjugate, PCV13 (Prevnar 13) Unknown Completed [facility] TDAP Unknown Completed [facility] Influenza High Dose Unknown Completed [facility] Influenza Virus Vaccine Unknown Completed [facility] SARS-COV-2 COVID-19 UNSPECIFIED VACCINE Unknown Completed [facility] Influenza Virus Vaccine Quad IM Multi-dose 6+ MO Unknown Completed [facility] Influenza Virus Vaccine,quad Im,preserve Free 65+ (FLUAD) Unknown Completed [facility] SARS-COV-2 COVID-19 VACCINE - (MODERNA) Unknown Completed [facility] Pneumococcal Unspecified Unknown Completed [facility] Pneumococcal Polysaccharide, PPSV23 (PNEUMOVAX) Unknown Completed [facility] Pneumococcal 13 Conjugate, PCV13 (Prevnar 13) Unknown Completed [facility] TDAP Unknown Completed [facility] Influenza High Dose Unknown Completed [facility] Influenza Virus Vaccine Unknown Completed [facility] [facility] SARS-COV-2 COVID-19 UNSPECIFIED VACCINE Unknown Completed [facility] Influenza Virus Vaccine Quad IM Multi-dose 6+ MO Unknown Completed [facility] Influenza Virus Vaccine,quad Im,preserve Free 65+ (FLUAD) Unknown Completed [facility] SARS-COV-2 COVID-19 VACCINE - (MODERNA) Unknown [facility] Unspecified Unknown Completed [facility] Pneumococcal Polysaccharide, PPSV23 (PNEUMOVAX) Unknown Completed [facility] Pneumococcal 13 Conjugate, PCV13 (Prevnar 13) Unknown Completed [facility] TDAP Unknown Completed [facility] Influenza High Dose Unknown Completed [facility] Influenza Virus Vaccine Unknown Completed [facility] SARS-COV-2 COVID-19 UNSPECIFIED VACCINE Unknown Completed [facility] Influenza Virus Vaccine Quad IM Multi-dose 6+ MO Unknown Completed [facility] Influenza Virus Vaccine,quad Im,preserve Free 65+ (FLUAD) Unknown Completed [facility] SARS-COV-2 COVID-19 VACCINE - (MODERNA) Unknown Completed [facility] Pneumococcal Unspecified Unknown Completed [facility] Pneumococcal Polysaccharide, PPSV23 (PNEUMOVAX) Unknown Completed [facility] Pneumococcal 13 Conjugate, PCV13 (Prevnar 13) Unknown Completed [facility] TDAP Unknown Completed [facility] Influenza High Dose Unknown Completed [facility] Influenza Virus Vaccine Unknown Completed [facility] SARS-COV-2 COVID-19 UNSPECIFIED VACCINE Unknown Completed [facility] Influenza Virus Vaccine Quad IM Multi-dose 6+ MO Unknown Completed [facility] Influenza Virus Vaccine,quad Im,preserve Free 65+ (FLUAD) Unknown Completed [facility] SARS-COV-2 COVID-19 VACCINE - (MODERNA) Unknown Completed [facility] Pneumococcal Unspecified Unknown Completed [facility] Pneumococcal Polysaccharide, PPSV23 (PNEUMOVAX) Unknown Completed [facility] Pneumococcal 13 Conjugate, PCV13 (Prevnar 13) Unknown Completed [facility] TDAP Unknown Completed [facility] Influenza High Dose Unknown Completed [facility] Influenza Virus Vaccine Unknown Completed [facility] SARS-COV-2 COVID-19 UNSPECIFIED VACCINE Unknown Completed [facility] Influenza Virus Vaccine Quad IM Multi-dose 6+ MO Unknown Completed [facility] Influenza Virus Vaccine,quad Im,preserve Free 65+ (FLUAD) Unknown Completed [facility] SARS-COV-2 COVID-19 VACCINE - (MODERNA) Unknown Completed [facility] Pneumococcal Unspecified Unknown Completed [facility] Pneumococcal Polysaccharide, PPSV23 (PNEUMOVAX) Unknown Completed [facility] Pneumococcal 13 Conjugate, PCV13 (Prevnar 13) Unknown Completed [facility] TDAP Unknown Completed [facility] Influenza High Dose Unknown Completed [facility] Influenza Virus Vaccine Unknown Completed [facility] SARS-COV-2 COVID-19 UNSPECIFIED VACCINE Unknown Completed [facility] Influenza Virus Vaccine Quad IM Multi-dose 6+ MO Unknown Completed [facility] Influenza Virus Vaccine,quad Im,preserve Free 65+ (FLUAD) Unknown Completed [facility] SARS-COV-2 COVID-19 VACCINE - (MODERNA) Unknown [facility] Pneum[facility] Unspecified Unknown Completed [facility] Pneumococcal Polysaccharide, PPSV23 (PNEUMOVAX) Unknown Completed [facility] Pneumococcal 13 Conjugate, PCV13 (Prevnar 13) Unknown Completed [facility] TDAP Unknown Completed [facility] Influenza High Dose Unknown Completed [facility] Influenza Virus Vaccine Unknown Completed [facility] SARS-COV-2 COVID-19 UNSPECIFIED VACCINE Unknown Completed [facility] Influenza Virus Vaccine Quad IM Multi-dose 6+ MO Unknown Completed [facility] Influenza Virus Vaccine,quad Im,preserve Free 65+ (FLUAD) Unknown Completed [facility] SARS-COV-2 COVID-19 VACCINE - (MODERNA) Unknown Completed [facility] Pneumococcal Unspecified Unknown Completed [facility] Pneumococcal Polysaccharide, PPSV23 (PNEUMOVAX) Unknown Completed [facility] Pneumococcal 13 Conjugate, PCV13 (Prevnar 13) Unknown Completed [facility] TDAP Unknown Completed [facility] Influenza High Dose Unknown Completed [facility] Influenza Virus Vaccine Unknown Completed [facility] SARS-COV-2 COVID-19 UNSPECIFIED VACCINE Unknown Completed [facility] Influenza Virus Vaccine Quad IM Multi-dose 6+ MO Unknown Completed [facility] Influenza Virus Vaccine,quad Im,preserve Free 65+ (FLUAD) Unknown Completed [facility] SARS-COV-2 COVID-19 VACCINE - (MODERNA) Unknown Completed [facility] Pneumococcal Unspecified Unknown Completed [facility] Pneumococcal Polysaccharide, PPSV23 (PNEUMOVAX) Unknown Completed [facility] Pneumococcal 13 Conjugate, PCV13 (Prevnar 13) Unknown Completed [facility] TDAP Unknown Completed [facility] Influenza High Dose Unknown Completed [facility] Influenza Virus Vaccine Unknown Completed [facility] SARS-COV-2 COVID-19 UNSPECIFIED VACCINE Unknown Completed [facility] Influenza Virus Vaccine Quad IM Multi-dose 6+ MO Unknown Completed [facility] Influenza Virus Vaccine,quad Im,preserve Free 65+ (FLUAD) Unknown Completed [facility] SARS-COV-2 COVID-19 VACCINE - (MODERNA) Unknown Completed [facility] Pneumococcal Unspecified Unknown Completed [facility] Vital Signs Vital Name Observation Time Observation Value Comments S ource Systolic blood pressure 2024-05-10 21:28:00 135 mm[Hg] [facility] Diastolic blood pressure 2024-05-10 21:28:00 60 mm[Hg] [facility] Heart rate 2024-05-10 21:28:00 79 /min [facility] Body temperature 2024-05-10 21:18:00 36.78 Sherry [facility] Respiratory rate 2024-05-10 21:18:00 20 /min [facility] Body height 2024-05-10 21:18:00 170.2 cm [facility] Body weight 2024-05-10 21:18:00 102.059 kg [facility] BMI 2024-05-10 21:18:00 35.24 kg/m2 [facility] Oxygen saturation in Arterial blood by Pulse oximetry 2024-05-10 21:18:00 97 /min [facility] Systolic blood pressure 2024-04-30 17:48:00 128 mm[Hg] [facility] Diastolic blood pressure 2024-04-30 17:48:00 70 mm[Hg] [facility] Heart rate 2024-04-30 17:48:00 76 /min [facility] Body height 2024-04-30 17:48:00 170.2 cm [facility] Body weight 2024-04-30 17:48:00 109.317 kg [facility] BMI 2024-04-30 17:48:00 37.75 kg/m2 [facility] Oxygen saturation in Arterial blood by Pulse oximetry 2024-04-30 17:48:00 98 /min [facility] Systolic blood pressure 2024-04-17 15:04:00 124 mm[Hg] [facility] Diastolic blood pressure 2024-04-17 15:04:00 54 mm[Hg] [facility] Heart rate 2024-04-17 15:04:00 88 /min [facility] Body height 2024-04-17 15:04:00 170.2 cm [facility] Body weight 2024-04-17 15:04:00 109.317 kg [facility] BMI 2024-04-17 15:04:00 37.75 kg/m2 [facility] Systolic blood pressure 2024-04-03 19:07:00 152 mm[Hg] [facility] Diastolic blood pressure 2024-04-03 19:07:00 74 mm[Hg] [facility] Heart rate 2024-04-03 18:58:00 89 /min [facility] Body height 2024-04-03 18:58:00 170.2 cm [facility] Body weight 2024-04-03 18:58:00 109.317 kg [facility] BMI 2024-04-03 18:58:00 37.75 kg/m2 [facility] Oxygen saturation in Arterial blood by Pulse oximetry 2024-04-03 18:58:00 98 /min [facility] Systolic blood pressure 2024-01-31 17:44:00 98 mm[Hg] [facility] Diastolic blood pressure 2024-01-31 17:44:00 54 mm[Hg] [facility] Heart rate 2024-01-31 17:44:00 73 /min [facility] Body temperature 2024-01-31 17:44:00 36.94 Sherry [facility] Respiratory rate 2024-01-31 17:44:00 17 /min [facility] Body height 2024-01-31 17:44:00 170.2 cm [facility] Body weight 2024-01-31 17:44:00 109.045 kg wt per pt - declined to weigh [facility] BMI 2024-01-31 17:44:00 37.65 kg/m2 [facility] Oxygen saturation in Arterial blood by Pulse oximetry 2024-01-31 17:44:00 96 /min [facility] Systolic blood pressure 2024-01-31 15:44:00 137 mm[Hg] [facility] Diastolic blood pressure 2024-01-31 15:44:00 74 mm[Hg] [facility] Heart rate 2024-01-31 15:43:00 81 /min [facility] Body temperature 2024-01-31 15:43:00 36.83 Sherry [facility] Respiratory rate 2024-01-31 15:43:00 18 /min [facility] Body height 2024-01-31 15:43:00 170.2 cm [facility] Body weight 2024-01-31 15:43:00 108.863 kg [facility] BMI 2024-01-31 15:43:00 37.59 kg/m2 [facility] Oxygen saturation in Arterial blood by Pulse oximetry 2024-01-31 15:43:00 98 /min [facility] Systolic blood pressure 2024-01-17 01:00:00 171 mm[Hg] [facility] Diastolic blood pressure 2024-01-17 01:00:00 92 mm[Hg] [facility] Heart rate 2024-01-17 01:00:00 84 /min [facility] Respiratory rate 2024-01-17 01:00:00 18 /min [facility] Oxygen saturation in Arterial blood by Pulse oximetry 2024-01-17 01:00:00 96 /min [facility] Body temperature 2024-01-17 00:44:00 36.5 Sherry [facility] Body height 2024-01-16 20:53:00 170.2 cm [facility] Body weight 2024-01-16 20:53:00 109.317 kg [facility] BMI 2024-01-16 20:53:00 37.75 kg/m2 [facility] Systolic blood pressure 2023-12-27 15:40:00 144 mm[Hg] [facility] Diastolic blood pressure 2023-12-27 15:40:00 69 mm[Hg] [facility] Heart rate 2023-12-27 15:39:00 81 /min [facility] Body temperature 2023-12-27 15:39:00 36.72 Sherry [facility] Respiratory rate 2023-12-27 15:39:00 18 /min [facility] Body height 2023-12-27 15:39:00 170.2 cm [facility] Oxygen saturation in Arterial blood by Pulse oximetry 2023-12-27 15:39:00 97 /min [facility] Systolic blood pressure 2023-11-11 17:03:00 160 mm[Hg] [facility] Diastolic blood pressure 2023-11-11 17:03:00 60 mm[Hg] [facility] Heart rate 2023-11-11 16:03:00 76 /min [facility] Body temperature 2023-11-11 16:03:00 36.89 Sherry [facility] Respiratory rate 2023-11-11 16:03:00 18 /min [facility] Body height 2023-11-11 16:03:00 170.2 cm [facility] Body weight 2023-11-11 16:03:00 109.77 kg [facility] BMI 2023-11-11 16:03:00 37.90 kg/m2 [facility] Oxygen saturation in Arterial blood by Pulse oximetry 2023-11-11 16:03:00 95 /min [facility] Systolic blood pressure 2023-10-30 22:39:00 155 mm[Hg] [facility] Diastolic blood pressure 2023-10-30 22:39:00 69 mm[Hg] [facility] Heart rate 2023-10-30 22:39:00 80 /min [facility] Body temperature 2023-10-30 22:39:00 36.72 Sherry [facility] Respiratory rate 2023-10-30 22:39:00 18 /min [facility] Oxygen saturation in Arterial blood by Pulse oximetry 2023-10-30 22:39:00 99 /min [facility] Body height 2023-10-30 19:36:00 170.2 cm [facility] Body weight 2023-10-30 19:36:00 109.317 kg [facility] BMI 2023-10-30 19:36:00 37.75 kg/m2 [facility] Systolic blood pressure 2023-09-21 15:28:00 147 mm[Hg] [facility] Diastolic blood pressure 2023-09-21 15:28:00 65 mm[Hg] [facility] Heart rate 2023-09-21 15:28:00 64 /min [facility] Body temperature 2023-09-21 15:25:00 36.28 Sherry [facility] Body height 2023-09-21 15:25:00 170.2 cm [facility] Body weight 2023-09-21 15:25:00 109.317 kg [facility] BMI 2023-09-21 15:25:00 37.75 kg/m2 [facility] Oxygen saturation in Arterial blood by Pulse oximetry 2023-09-21 15:25:00 98 /min [facility] Systolic blood pressure 2023-08-12 17:07:00 148 mm[Hg] [facility] Diastolic blood pressure 2023-08-12 17:07:00 61 mm[Hg] [facility] Heart rate 2023-08-12 17:07:00 61 /min [facility] Respiratory rate 2023-08-12 17:07:00 18 /min [facility] Body height 2023-08-12 17:07:00 170.2 cm [facility] Body weight 2023-08-12 17:07:00 113.853 kg [facility] BMI 2023-08-12 17:07:00 39.31 kg/m2 [facility] Oxygen saturation in Arterial blood by Pulse oximetry 2023-08-12 17:07:00 99 /min [facility] Systolic blood pressure 2023-07-13 14:42:00 154 mm[Hg] [facility] Diastolic blood pressure 2023-07-13 14:42:00 56 mm[Hg] [facility] Heart rate 2023-07-13 14:36:00 75 /min [facility] Respiratory rate 2023-07-13 14:36:00 18 /min [facility] Body height 2023-07-13 14:36:00 170.2 cm [facility] Body weight 2023-07-13 14:36:00 113.853 kg [facility] BMI 2023-07-13 14:36:00 39.31 kg/m2 [facility] Oxygen saturation in Arterial blood by Pulse oximetry 2023-07-13 14:36:00 96 /min [facility] Systolic blood pressure 2023-07-08 20:05:00 125 mm[Hg] [facility] Diastolic blood pressure 2023-07-08 20:05:00 72 mm[Hg] [facility] Heart rate 2023-07-08 20:05:00 77 /min [facility] Body temperature 2023-07-08 20:05:00 36.33 Sherry [facility] Body height 2023-07-08 20:05:00 170.2 cm [facility] Body weight 2023-07-08 20:05:00 114.216 kg [facility] BMI 2023-07-08 20:05:00 39.44 kg/m2 [facility] Oxygen saturation in Arterial blood by Pulse oximetry 2023-07-08 20:05:00 96 /min [facility] Systolic blood pressure 2023-06-22 16:15:00 133 mm[Hg] [facility] Diastolic blood pressure 2023-06-22 16:15:00 50 mm[Hg] [facility] Heart rate 2023-06-22 16:15:00 83 /min [facility] Oxygen saturation in Arterial blood by Pulse oximetry 2023-06-22 16:15:00 98 /min [facility] Respiratory rate 2023-06-22 16:10:00 17 /min [facility] Body height 2023-06-22 16:10:00 170.2 cm [facility] Body weight 2023-06-22 16:10:00 114.125 kg [facility] BMI 2023-06-22 16:10:00 39.41 kg/m2 [facility] Systolic blood pressure 2023-06-09 15:46:00 174 mm[Hg] [facility] Diastolic blood pressure 2023-06-09 15:46:00 69 mm[Hg] [facility] Heart rate 2023-06-09 15:46:00 63 /min [facility] Body height 2023-06-09 15:46:00 170.2 cm [facility] Body weight 2023-06-09 15:46:00 112.447 kg [facility] BMI 2023-06-09 15:46:00 38.83 kg/m2 [facility] Oxygen saturation in Arterial blood by Pulse oximetry 2023-06-09 15:46:00 96 /min [facility] Systolic blood pressure 2023-06-06 17:35:00 134 mm[Hg] [facility] Diastolic blood pressure 2023-06-06 17:35:00 63 mm[Hg] [facility] Heart rate 2023-06-06 17:35:00 68 /min [facility] Body temperature 2023-06-06 17:35:00 36.39 Sherry [facility] Respiratory rate 2023-06-06 17:35:00 16 /min [facility] Body height 2023-06-06 17:35:00 170.2 cm [facility] Body weight 2023-06-06 17:35:00 115.44 kg [facility] BMI 2023-06-06 17:35:00 39.86 kg/m2 [facility] Oxygen saturation in Arterial blood by Pulse oximetry 2023-06-06 17:35:00 94 /min [facility] Systolic blood pressure 2023-05-23 17:01:00 137 mm[Hg] [facility] Diastolic blood pressure 2023-05-23 17:01:00 50 mm[Hg] [facility] Body height 2023-05-23 17:01:00 170.2 cm [facility] Body weight 2023-05-23 17:01:00 113.853 kg [facility] BMI 2023-05-23 17:01:00 39.31 kg/m2 [facility] Systolic blood pressure 2023-05-05 19:45:00 146 mm[Hg] [facility] Diastolic blood pressure 2023-05-05 19:45:00 53 mm[Hg] [facility] Heart rate 2023-05-05 19:45:00 68 /min [facility] Body temperature 2023-05-05 19:45:00 36.72 Sherry [facility] Respiratory rate 2023-05-05 19:45:00 16 /min [facility] Body height 2023-05-05 19:45:00 170.2 cm [facility] Body weight 2023-05-05 19:45:00 116.574 kg [facility] BMI 2023-05-05 19:45:00 40.25 kg/m2 [facility] Oxygen saturation in Arterial blood by Pulse oximetry 2023-05-05 19:45:00 97 /min [facility] Systolic blood pressure 2023-05-05 15:30:00 114 mm[Hg] [facility] Diastolic blood pressure 2023-05-05 15:30:00 65 mm[Hg] [facility] Heart rate 2023-05-05 15:30:00 71 /min [facility] Body temperature 2023-05-05 15:30:00 35.94 Sherry [facility] Body height 2023-05-05 15:30:00 170.2 cm [facility] Body weight 2023-05-05 15:30:00 116.711 kg [facility] BMI 2023-05-05 15:30:00 40.30 kg/m2 [facility] Oxygen saturation in Arterial blood by Pulse oximetry 2023-05-05 15:30:00 96 /min [facility] Systolic blood pressure 2023-04-27 16:26:00 148 mm[Hg] [facility] Diastolic blood pressure 2023-04-27 16:26:00 61 mm[Hg] [facility] Heart rate 2023-04-27 16:25:00 59 /min [facility] Body temperature 2023-04-27 16:25:00 34.67 Sherry [facility] Respiratory rate 2023-04-27 16:25:00 20 /min [facility] Body height 2023-04-27 16:25:00 170.2 cm [facility] Body weight 2023-04-27 16:25:00 113.354 kg [facility] BMI 2023-04-27 16:25:00 39.14 kg/m2 [facility] [place] [facility] saturation in Arterial blood by Pulse oximetry 2023-04-27 16:25:00 98 /min [facility] Systolic blood pressure 2023-04-19 16:37:00 116 mm[Hg] [facility] [place] Diastolic blood pressure 2023-04-19 16:37:00 60 mm[Hg] [facility] [place] [facility] Heart rate 2023-04-19 16:37:00 52 /min [facility] Body temperature 2023-04-19 16:37:00 36.39 Sherry [facility] [place] Respiratory rate 2023-04-19 16:37:00 18 /min [facility] [place] Oxygen saturation in Arterial blood by Pulse oximetry 2023-04-19 16:37:00 95 /min [facility] [place] Body weight 2023-04-18 09:46:00 108.5 kg [facility] [place] BMI 2023-04-18 09:46:00 37.46 kg/m2 [facility] [place] Body height 2023-04-13 02:12:00 170.2 cm [facility] [place] Heart rate 2023-03-28 15:29:00 65 /min [facility] [place] Respiratory rate 2023-03-28 15:29:00 22 /min [facility] [place] Oxygen saturation in Arterial blood by Pulse oximetry 2023-03-28 15:29:00 96 /min [facility] [place] Systolic blood pressure 2023-03-28 13:10:00 155 mm[Hg] [facility] [place] Diastolic blood pressure 2023-03-28 13:10:00 63 mm[Hg] [facility] [place] Body temperature 2023-03-28 13:10:00 36.22 Sherry [facility] [place] Body weight 2023-03-24 08:16:00 119.438 kg bedscale used - patient unable to stand on scale [facility] [place] BMI 2023-03-24 08:16:00 41.24 kg/m2 [facility] [place] Body height 2023-03-21 14:07:00 170.2 cm [facility] [place] Systolic blood pressure 2023-03-25 13:32:00 157 mm[Hg] [facility] [place] Diastolic blood pressure 2023-03-25 13:32:00 47 mm[Hg] [facility] [place] Heart rate 2023-03-25 12:35:00 64 /min [facility] [place] Body temperature 2023-03-25 12:35:00 36.39 Sherry [facility] [place] Respiratory rate 2023-03-25 12:35:00 20 /min [facility] [place] Oxygen saturation in Arterial blood by Pulse oximetry 2023-03-25 12:35:00 95 /min [facility] [place] Body weight 2023-03-24 08:16:00 119.438 kg bedscale used - patient unable to stand on scale [facility] [place] BMI 2023-03-24 08:16:00 41.24 kg/m2 [facility] [place] Body height 2023-03-21 14:07:00 170.2 cm [facility] [place] Systolic blood pressure 2023-03-21 14:07:00 153 mm[Hg] [facility] [place] Diastolic blood pressure 2023-03-21 14:07:00 76 mm[Hg] [facility] [place] Heart rate 2023-03-21 14:07:00 64 /min [facility] [place] Body temperature 2023-03-21 14:07:00 36.5 Sherry [facility] [place] Respiratory rate 2023-03-21 14:07:00 18 /min [facility] [place] Body height 2023-03-21 14:07:00 170.2 cm [facility] [place] Body weight 2023-03-21 14:07:00 123.2 kg [facility] [place] BMI 2023-03-21 14:07:00 42.54 kg/m2 [facility] [place] Oxygen saturation in Arterial blood by Pulse oximetry 2023-03-21 14:07:00 100 /min [facility] [place] Systolic blood pressure 2023-03-10 21:20:00 150 mm[Hg] [facility] [place] Diastolic blood pressure 2023-03-10 21:20:00 56 mm[Hg] [facility] [place] Heart rate 2023-03-10 21:20:00 66 /min [facility] [place] Body temperature 2023-03-10 21:17:00 37 Sherry [facility] [place] Respiratory rate 2023-03-10 21:17:00 18 /min [facility] [place] Body height 2023-03-10 21:17:00 170.2 cm [facility] [place] Body weight 2023-03-10 21:17:00 117.935 kg [facility] [place] BMI 2023-03-10 21:17:00 40.72 kg/m2 [facility] [place] Oxygen saturation in Arterial blood by Pulse oximetry 2023-03-10 21:17:00 96 /min [facility] [place] Systolic blood pressure 2023-03-08 21:20:00 167 mm[Hg] [facility] [place] Diastolic blood pressure 2023-03-08 21:20:00 77 mm[Hg] [facility] [place] Heart rate 2023-03-08 21:06:00 74 /min [facility] [place] Body temperature 2023-03-08 21:06:00 36.17 Sherry [facility] [place] Body height 2023-03-08 21:06:00 170.2 cm [facility] [place] Body weight 2023-03-08 21:06:00 118.071 kg [facility] [place] BMI 2023-03-08 21:06:00 40.77 kg/m2 [facility] [place] Oxygen saturation in Arterial blood by Pulse oximetry 2023-03-08 21:06:00 97 /min [facility] [place] Systolic blood pressure 2023-02-21 20:39:00 157 mm[Hg] [facility] [place] Diastolic blood pressure 2023-02-21 20:39:00 59 mm[Hg] [facility] [place] Heart rate 2023-02-21 20:39:00 80 /min [facility] [place] Body temperature 2023-02-21 20:39:00 37.44 Sherry [facility] [place] Respiratory rate 2023-02-21 20:39:00 18 /min [facility] [place] Oxygen saturation in Arterial blood by Pulse oximetry 2023-02-21 20:39:00 93 /min [facility] [place] Body weight 2023-02-21 08:00:00 118.978 kg [facility] [place] BMI 2023-02-21 08:00:00 41.08 kg/m2 [facility] [place] Body height 2023-02-21 01:34:00 170.2 cm [facility] [place] Systolic blood pressure 2023-02-08 15:56:00 145 mm[Hg] [facility] [place] Diastolic blood pressure 2023-02-08 15:56:00 70 mm[Hg] [facility] [place] Heart rate 2023-02-08 15:56:00 64 /min [facility] [place] Respiratory rate 2023-02-08 15:56:00 20 /min [facility] [place] Body height 2023-02-08 15:56:00 170.2 cm [facility] [place] Body weight 2023-02-08 15:56:00 118.842 kg [facility] [place] BMI 2023-02-08 15:56:00 41.04 kg/m2 [facility] [place] Oxygen saturation in Arterial blood by Pulse oximetry 2023-02-08 15:56:00 98 /min [facility] [place] Systolic blood pressure 2022-12-24 16:07:00 127 mm[Hg] [facility] [place] Diastolic blood pressure 2022-12-24 16:07:00 47 mm[Hg] [facility] [place] Heart rate 2022-12-24 16:07:00 72 /min [facility] [place] Body temperature 2022-12-24 16:07:00 36.11 Sherry [facility] [place] Respiratory rate 2022-12-24 16:07:00 18 /min [facility] [place] Body height 2022-12-24 16:07:00 170.2 cm [facility] [place] Body weight 2022-12-24 16:07:00 109.408 kg [facility] [place] BMI 2022-12-24 16:07:00 37.78 kg/m2 [facility] [place] Oxygen saturation in Arterial blood by Pulse oximetry 2022-12-24 16:07:00 98 /min [facility] [place] Systolic blood pressure 2022-12-21 15:39:00 113 mm[Hg] [facility] [place] Diastolic blood pressure 2022-12-21 15:39:00 51 mm[Hg] [facility] [place] Heart rate 2022-12-21 15:39:00 73 /min [facility] [place] Body height 2022-12-21 15:39:00 170.2 cm [facility] [place] Body weight 2022-12-21 15:39:00 108.909 kg [facility] [place] BMI 2022-12-21 15:39:00 37.60 kg/m2 [facility] [place] Systolic blood pressure 2022-12-09 14:08:00 116 mm[Hg] [facility] [place] Diastolic blood pressure 2022-12-09 14:08:00 75 mm[Hg] [facility] [place] Heart rate 2022-12-09 14:08:00 74 /min [facility] [place] Body height 2022-12-09 14:08:00 170.2 cm [facility] [place] Body weight 2022-12-09 14:08:00 104.599 kg [facility] [place] BMI 2022-12-09 14:08:00 36.12 kg/m2 [facility] [place] Oxygen saturation in Arterial blood by Pulse oximetry 2022-12-09 14:08:00 100 /min [facility] [place] Systolic blood pressure 2022-09-28 15:54:00 135 mm[Hg] [facility] [place] Diastolic blood pressure 2022-09-28 15:54:00 70 mm[Hg] [facility] [place] Heart rate 2022-09-28 15:54:00 65 /min [facility] [place] Body temperature 2022-09-28 15:54:00 36.94 Sherry [facility] [place] Respiratory rate 2022-09-28 15:54:00 20 /min [facility] [place] Body height 2022-09-28 15:54:00 170.2 cm [facility] [place] Body weight 2022-09-28 15:54:00 116.847 kg [facility] [place] BMI 2022-09-28 15:54:00 40.35 kg/m2 [facility] [place] Oxygen saturation in Arterial blood by Pulse oximetry 2022-09-28 15:54:00 97 /min [facility] [place] Systolic blood pressure 2022-09-07 20:18:00 146 mm[Hg] [facility] [place] Diastolic blood pressure 2022-09-07 20:18:00 56 mm[Hg] [facility] [place] Heart rate 2022-09-07 20:18:00 60 /min [facility] [place] Oxygen saturation in Arterial blood by Pulse oximetry 2022-09-07 20:18:00 96 /min [facility] [place] Respiratory rate 2022-09-07 20:14:00 20 /min [facility] [place] Body height 2022-09-07 20:14:00 170.2 cm [facility] [place] Body weight 2022-09-07 20:14:00 119.296 kg [facility] [place] BMI 2022-09-07 20:14:00 41.19 kg/m2 [facility] [place] Systolic blood pressure 2022-08-31 16:37:00 135 mm[Hg] [facility] [place] Diastolic blood pressure 2022-08-31 16:37:00 50 mm[Hg] [facility] [place] Heart rate 2022-08-31 16:37:00 61 /min [facility] [place] Body temperature 2022-08-31 16:37:00 36.78 Sherry [facility] [place] Body height 2022-08-31 16:37:00 170.2 cm [facility] [place] Body weight 2022-08-31 16:37:00 118.389 kg [facility] [place] BMI 2022-08-31 16:37:00 40.88 kg/m2 [facility] [place] Oxygen saturation in Arterial blood by Pulse oximetry 2022-08-31 16:37:00 96 /min [facility] [place] Body temperature 2022-08-30 19:10:00 36.17 Sherry [facility] [place] Body height 2022-08-30 19:10:00 170.2 cm [facility] [place] Body weight 2022-08-30 19:10:00 119.205 kg [facility] [place] BMI 2022-08-30 19:10:00 41.16 kg/m2 [facility] [place] Systolic blood pressure 2022-08-13 17:33:00 140 mm[Hg] [facility] [place] Diastolic blood pressure 2022-08-13 17:33:00 84 mm[Hg] [facility] [place] Heart rate 2022-08-13 17:33:00 76 /min [facility] [place] Oxygen saturation in Arterial blood by Pulse oximetry 2022-08-13 17:33:00 98 /min [facility] [place] Respiratory rate 2022-08-13 17:30:00 20 /min [facility] [place] Body height 2022-08-13 17:30:00 170.2 cm [facility] [place] Body weight 2022-08-13 17:30:00 117.119 kg [facility] [place] BMI 2022-08-13 17:30:00 40.44 kg/m2 [facility] [place] Systolic blood pressure 2022-07-30 17:33:00 175 mm[Hg] [facility] [place] Diastolic blood pressure 2022-07-30 17:33:00 66 mm[Hg] [facility] [place] Heart rate 2022-07-30 17:32:00 81 /min [facility] [place] Body temperature 2022-07-30 17:32:00 36.5 Sherry [facility] [place] Body weight 2022-07-30 17:32:00 115.214 kg [facility] [place] BMI 2022-07-30 17:32:00 39.78 kg/m2 [facility] [place] Oxygen saturation in Arterial blood by Pulse oximetry 2022-07-30 17:32:00 100 /min [facility] [place] Systolic blood pressure 2022-07-20 20:28:00 118 mm[Hg] [facility] [place] Diastolic blood pressure 2022-07-20 20:28:00 60 mm[Hg] [facility] [place] Heart rate 2022-07-20 20:28:00 52 /min [facility] [place] Respiratory rate 2022-07-20 20:28:00 17 /min [facility] [place] Body weight 2022-07-20 20:28:00 109.487 kg Per patient [facility] [place] BMI 2022-07-20 20:28:00 37.80 kg/m2 [facility] [place] Oxygen saturation in Arterial blood by Pulse oximetry 2022-07-20 20:28:00 91 /min [facility] [place] Systolic blood pressure 2022-07-15 17:24:00 134 mm[Hg] [facility] [place] Diastolic blood pressure 2022-07-15 17:24:00 56 mm[Hg] [facility] [place] Heart rate 2022-07-15 17:24:00 63 /min [facility] [place] Body temperature 2022-07-15 17:24:00 36.61 Sherry [facility] [place] Body height 2022-07-15 17:24:00 170.2 cm [facility] [place] Body weight 2022-07-15 17:24:00 111.585 kg [facility] [place] BMI 2022-07-15 17:24:00 38.53 kg/m2 [facility] [place] Oxygen saturation in Arterial blood by Pulse oximetry 2022-07-15 17:24:00 97 /min [facility] [place] Systolic blood pressure 2022-07-05 18:00:00 154 mm[Hg] [facility] [place] Diastolic blood pressure 2022-07-05 18:00:00 43 mm[Hg] [facility] [place] Heart rate 2022-07-05 18:00:00 87 /min [facility] [place] Body temperature 2022-07-05 18:00:00 37 Sherry [facility] [place] Respiratory rate 2022-07-05 18:00:00 21 /min [facility] [place] Oxygen saturation in Arterial blood by Pulse oximetry 2022-07-05 18:00:00 96 /min [facility] [place] Body weight 2022-06-30 14:33:00 114.488 kg [facility] [place] BMI 2022-06-30 14:33:00 39.53 kg/m2 [facility] [place] Body height 2022-06-26 23:36:00 170.2 cm [facility] [place] Systolic blood pressure 2022-06-08 16:55:00 141 mm[Hg] [facility] [place] Diastolic blood pressure 2022-06-08 16:55:00 63 mm[Hg] [facility] [place] Heart rate 2022-06-08 16:43:00 83 /min [facility] [place] Body weight 2022-06-08 16:43:00 118.389 kg [facility] [place] BMI 2022-06-08 16:43:00 40.88 kg/m2 [facility] [place] Oxygen saturation in Arterial blood by Pulse oximetry 2022-06-08 16:43:00 96 /min [facility] [place] Body temperature 2022-06-01 17:47:00 36.44 Sherry [facility] [place] Body height 2022-06-01 17:47:00 170.2 cm [facility] [place] Body weight 2022-06-01 17:47:00 116.574 kg [facility] [place] BMI 2022-06-01 17:47:00 40.25 kg/m2 [facility] [place] Systolic blood pressure 2022-05-10 19:38:00 107 mm[Hg] [facility] [place] Diastolic blood pressure 2022-05-10 19:38:00 64 mm[Hg] [facility] [place] Heart rate 2022-05-10 19:38:00 86 /min [facility] [place] Body temperature 2022-05-10 19:38:00 37.06 Sherry [facility] [place] Body height 2022-05-10 19:38:00 170.2 cm [facility] [place] Body weight 2022-05-10 19:38:00 115.214 kg [facility] [place] BMI 2022-05-10 19:38:00 39.78 kg/m2 [facility] [place] Oxygen saturation in Arterial blood by Pulse oximetry 2022-05-10 19:38:00 97 /min [facility] [place] Systolic blood pressure 2022-05-10 16:53:00 124 mm[Hg] [facility] [place] Diastolic blood pressure 2022-05-10 16:53:00 60 mm[Hg] [facility] Heart rate 2022-05-10 16:53:00 91 /min [facility] [place] Body weight 2022-05-10 16:49:00 115.486 kg [facility] [place] BMI 2022-05-10 16:49:00 39.88 kg/m2 [facility] [place] Oxygen saturation in Arterial blood by Pulse oximetry 2022-05-10 16:49:00 98 /min [facility] [place] Systolic blood pressure 2022-04-29 15:55:00 146 mm[Hg] [facility] Diastolic blood pressure 2022-04-29 15:55:00 68 mm[Hg] [facility] [place] Heart rate 2022-04-29 15:53:00 91 /min [facility] [place] Body temperature 2022-04-29 15:53:00 36.78 Sherry [facility] [place] Body weight 2022-04-29 15:53:00 116.121 kg [facility] [place] BMI 2022-04-29 15:53:00 40.10 kg/m2 [facility] [place] Oxygen saturation in Arterial blood by Pulse oximetry 2022-04-29 15:53:00 98 /min [facility] [place] Systolic blood pressure 2022-04-22 14:08:00 127 mm[Hg] [facility] [place] Diastolic blood pressure 2022-04-22 14:08:00 71 mm[Hg] [facility] [place] Heart rate 2022-04-22 14:08:00 82 /min [facility] [place] Body temperature 2022-04-22 14:08:00 36.56 Sherry [facility] [place] Body height 2022-04-22 14:08:00 170.2 cm [facility] [place] Body weight 2022-04-22 14:08:00 118.661 kg [facility] [place] BMI 2022-04-22 14:08:00 40.97 kg/m2 [facility] [place] Oxygen saturation in Arterial blood by Pulse oximetry 2022-04-22 14:08:00 97 /min [facility] [place] Systolic blood pressure 2022-04-07 16:33:00 139 mm[Hg] [facility] [place] Diastolic blood pressure 2022-04-07 16:33:00 63 mm[Hg] [facility] [place] Heart rate 2022-04-07 16:33:00 86 /min [facility] [place] Body temperature 2022-04-07 16:33:00 36.83 Sherry [facility] [place] Body weight 2022-04-07 16:33:00 114.125 kg [facility] [place] BMI 2022-04-07 16:33:00 39.41 kg/m2 [facility] [place] Oxygen saturation in Arterial blood by Pulse oximetry 2022-04-07 16:33:00 96 /min [facility] [place] Systolic blood pressure 2022-03-29 18:48:00 105 mm[Hg] [facility] [place] Diastolic blood pressure 2022-03-29 18:48:00 52 mm[Hg] [facility] [place] Heart rate 2022-03-29 18:48:00 96 /min [facility] [place] Body height 2022-03-29 18:48:00 170.2 cm [facility] [place] Body weight 2022-03-29 18:48:00 114.669 kg [facility] [place] BMI 2022-03-29 18:48:00 39.59 kg/m2 [facility] [place] Oxygen saturation in Arterial blood by Pulse oximetry 2022-03-29 18:48:00 92 /min [facility] [place] Systolic blood pressure 2022-03-25 16:22:00 146 mm[Hg] [facility] [place] Diastolic blood pressure 2022-03-25 16:22:00 77 mm[Hg] [facility] [place] Heart rate 2022-03-25 16:21:00 84 /min [facility] [place] Body temperature 2022-03-25 16:21:00 36.89 Sherry [facility] [place] Body height 2022-03-25 16:21:00 170.2 cm [facility] [place] Body weight 2022-03-25 16:21:00 111.766 kg [facility] [place] BMI 2022-03-25 16:21:00 38.59 kg/m2 [facility] [place] Oxygen saturation in Arterial blood by Pulse oximetry 2022-03-25 16:21:00 96 /min [facility] [place] Systolic blood pressure 2022-03-16 15:57:00 120 mm[Hg] [facility] [place] Diastolic blood pressure 2022-03-16 15:57:00 70 mm[Hg] [facility] [place] Heart rate 2022-03-16 15:57:00 98 /min [facility] [place] Body temperature 2022-03-16 15:57:00 36.33 Sherry [facility] [place] Respiratory rate 2022-03-16 15:57:00 17 /min [facility] [place] Body height 2022-03-16 15:57:00 170.2 cm [facility] [place] Body weight 2022-03-16 15:57:00 110.814 kg [facility] [place] BMI 2022-03-16 15:57:00 38.26 kg/m2 [facility] [place] Oxygen saturation in Arterial blood by Pulse oximetry 2022-03-16 15:57:00 98 /min [facility] [place] Systolic blood pressure 2022-02-25 13:06:00 133 mm[Hg] [facility] [place] Diastolic blood pressure 2022-02-25 13:06:00 57 mm[Hg] [facility] [place] Heart rate 2022-02-25 13:06:00 88 /min [facility] [place] Body height 2022-02-25 13:06:00 170.2 cm [facility] [place] Body weight 2022-02-25 13:06:00 111.131 kg [facility] [place] BMI 2022-02-25 13:06:00 38.37 kg/m2 [facility] [place] Oxygen saturation in Arterial blood by Pulse oximetry 2022-02-25 13:06:00 96 /min [facility] BP Diastolic 2021-12-10 00:00:00 78 mm[Hg] Replaced By [facility] Height 2021-12-10 00:00:00 67 [in_i] Replaced By [facility] BMI (Body Mass Index) 2021-12-10 00:00:00 41.3 kg/m2 Replaced By [facility] BP Systolic 2021-12-10 00:00:00 140 mm[Hg] Replaced By [facility] Body Weight 2021-12-10 00:00:00 4224 [oz_av] Replaced By [facility] BP Diastolic 2021-08-31 00:00:00 70 mm[Hg] Replaced By [facility] Height 2021-08-31 00:00:00 67 [in_i] Replaced By [facility] BMI (Body Mass Index) 2021-08-31 00:00:00 38.2 kg/m2 Replaced By [facility] BP Systolic 2021-08-31 00:00:00 116 mm[Hg] Replaced By [facility] Body Weight 2021-08-31 00:00:00 3904 [oz_av] Replaced By [facility] BP Diastolic 2021-07-30 00:00:00 92 mm[Hg] Replaced By [facility] Height 2021-07-30 00:00:00 67 [in_i] Replaced By [facility] BP Systolic 2021-07-30 00:00:00 164 mm[Hg] Replaced By [facility] BP Diastolic 2021-05-18 00:00:00 72 mm[Hg] [facility] Height 2021-05-18 00:00:00 67 [in_i] Replaced By [facility] BMI (Body Mass Index) 2021-05-18 00:00:00 39.8 kg/m2 Replaced By [facility] BP Systolic 2021-05-18 00:00:00 124 mm[Hg] Replaced By [facility] Body Weight 2021-05-18 00:00:00 4064 [oz_av] Replaced By [facility] BP Diastolic 2021-04-13 00:00:00 64 mm[Hg] Replaced By [facility] Height 2021-04-13 00:00:00 67 [in_i] Replaced By [facility] BMI (Body Mass Index) 2021-04-13 00:00:00 39.5 kg/m2 Replaced By [facility] BP Systolic 2021-04-13 00:00:00 138 mm[Hg] Replaced By [facility] Body Weight 2021-04-13 00:00:00 4032 [oz_av] Replaced By [facility] BP Diastolic 2021-02-17 00:00:00 64 mm[Hg] Replaced By [facility] Height 2021-02-17 00:00:00 67 [in_i] Replaced By [facility] BMI (Body Mass Index) 2021-02-17 00:00:00 37.7 kg/m2 Replaced By [facility] BP Systolic 2021-02-17 00:00:00 122 mm[Hg] Replaced By [facility] Body Weight 2021-02-17 00:00:00 3856 [oz_av] Replaced By [facility] BP Diastolic 2021-01-13 00:00:00 64 mm[Hg] Replaced By [facility] Height 2021-01-13 00:00:00 67 [in_i] Replaced By [facility] BMI (Body Mass Index) 2021-01-13 00:00:00 39.2 kg/m2 Replaced By [facility] BP Systolic 2021-01-13 00:00:00 130 mm[Hg] Replaced By [facility] Body Weight 2021-01-13 00:00:00 4000 [oz_av] Replaced By [facility] BP Diastolic 2020-11-27 00:00:00 64 mm[Hg] Replaced By [facility] Height 2020-11-27 00:00:00 67 [in_i] Replaced By [facility] BMI (Body Mass Index) 2020-11-27 00:00:00 38.8 kg/m2 Replaced By [facility] BP Systolic 2020-11-27 00:00:00 132 mm[Hg] Replaced By [facility] Body Weight 2020-11-27 00:00:00 3968 [oz_av] Replaced By [facility] BP Diastolic 2020-10-30 00:00:00 64 mm[Hg] Replaced By [facility] Height 2020-10-30 00:00:00 67 [in_i] Replaced By [facility] BP Systolic 2020-10-30 00:00:00 118 mm[Hg] Replaced By [facility] BP Diastolic 2020-10-09 00:00:00 72 mm[Hg] Replaced By [facility] Height 2020-10-09 00:00:00 67 [in_i] Replaced By [facility] BMI (Body Mass Index) 2020-10-09 00:00:00 36 kg/m2 Replaced By [facility] BP Systolic 2020-10-09 00:00:00 126 mm[Hg] Replaced By [facility] Body Weight 2020-10-09 00:00:00 3680 [oz_av] Replaced By [facility] Height 2020-09-09 00:00:00 67 [in_i] Replaced By [facility] BP Diastolic 2020-08-07 00:00:00 62 mm[Hg] Replaced By [facility] Height 2020-08-07 00:00:00 67 [in_i] Replaced By [facility] BMI (Body Mass Index) 2020-08-07 00:00:00 36.3 kg/m2 Replaced By [facility] BP Systolic 2020-08-07 00:00:00 114 mm[Hg] Replaced By [facility] Body Weight 2020-08-07 00:00:00 3712 [oz_av] Replaced By [facility] BP Diastolic 2020-07-10 00:00:00 74 mm[Hg] Replaced By [facility] Height 2020-07-10 00:00:00 67 [in_i] Replaced By [facility] BMI (Body Mass Index) 2020-07-10 00:00:00 38.8 kg/m2 Replaced By [facility] BP Systolic 2020-07-10 00:00:00 124 mm[Hg] Replaced By [facility] Body Weight 2020-07-10 00:00:00 3968 [oz_av] [facility] Procedures Procedure Date / Time Performed Performing Clinician Source PHYSICIAN ORDERS 2024-09-24 15:46:03 Doctor Valente signed, [place] [facility] DME/SUPPLY JUSTIFICATION 2024-08-21 16:08:32 Doc gloria Unassigned, [place] [facility] DME/SUPPLY JUSTIFICATION 2024-08-21 16:08:26 Hollis castro Unassigned, [place] [facility] LOWER EXTREMITY ARTERIAL DUPLEX BILATERAL - BY VASCULAR LAB 2024-07-17 17:48:00 Jerome Soares [facility] CAROTID DUPLEX BILATERAL - BY VASCULAR LAB 2024-07-17 16:40:00 Jerome Soares [facility] SCANNED LAB RESULTS 2024-06-19 20:47:02 Doctor Brock farias, [place] [facility] PHYSICIAN ORDERS 2024-05-23 21:19:25 Doctor Valente signed, [place] [facility] XR KNEE 3 VW LEFT 2024-04-17 15:22:31 Emili Gee [facility] POCT HEMOGLOBIN A1C TEST 2024-04-03 00:00:00 Elsi Christian [facility] EKG-12 LEAD 2024-01-17 00:29:15 [facility] LIPASE 2024-01-16 22:32:00 Shahzad Pro [facility] TROPONIN I 2024-01-16 22:32:00 Shahzad Pro [facility] COMP. METABOLIC PANEL (51026) 2024-01-16 22:32:00 Shahzad Pro [facility] CBC WITH DIFF 2024-01-16 22:32:00 Shahzad Pro [facility] XR CHEST 2 VW 2024-01-16 21:59:00 Shahzad Pro [facility] TDAP VACCINE, >11 YRS, IM 2023-11-11 16:49:17 [facility] 2023-11-11 00:00:00 Orestes Israel [facility] LACTIC ACID WHOLE BLOOD 2023-10-30 21:36:00 Daniella Moa [facility] BASIC METABOLIC PANEL (NA, K, CL, CO2, GLUCOSE, BUN, CREATININE, CA) 2023-10-30 21:25:00 Daniella Hawk [facility] CBC WITH DIFF 2023-10-30 21:25:00 Daniella Hawk [facility] DUPLEX VENOUS LEG RIGHT - BY VASCULAR LAB 2023-10-04 20:11:58 Steph Nur [facility] HEALTH - OTHER 2023-09-06 06:01:00 Doctor Brock castrosigned, [place] [facility] - OTHER 2023-08-08 06:01:00 Doctor Brock castrosigned, [place] [facility] DME/SUPPLY JUSTIFICATION 2023-07-25 06:01:00 Doc tor Unassigned, [place] [facility] - OTHER 2023-06-29 06:01:00 Doctor Brock farias, [place] [facility] MAGNESIUM 2023-06-22 16:58:00 Jamshid Early [facility] COMP. METABOLIC PANEL (60710) 2023-06-22 16:58:00 Jamshid Early [facility] CBC WITH DIFF 2023-06-22 16:58:00 Jamshid Early [facility] N-TERMINAL PRO-BNP 2023-06-22 16:58:00 Jamshid Early [facility] - OTHER 2023-06-21 06:01:00 Doctor Brock farias, [place] [facility] XR ANKLE 3+ VW RIGHT 2023-06-06 20:24:31 Nehal Titus [facility] POCT HEMOGLOBIN A1C TEST 2023-05-23 17:05:00 Erick Larios [facility] HEALTH 485 2023-05-20 06:01:00 Doctor Unass igned, [place] [facility] PHYSICIAN ORDERS 2023-05-05 05:01:00 Doctor Unas signed, [place] [facility] POCT GLUCOSE (AUTOMATED) 2023-04-19 16:41:00 Jared Alvarenga [facility] POCT GLUCOSE (AUTOMATED) 2023-04-19 13:19:00 Jared Alvarenga [facility] BASIC METABOLIC PANEL (NA, K, CL, CO2, GLUCOSE, BUN, CREATININE, CA) 2023-04-19 09:36:00 Leila Marmolejo [facility] CBC WITH DIFF 2023-04-19 09:36:00 Leila Marmolejo [facility] POCT GLUCOSE (AUTOMATED) 2023-04-19 04:44:00 Jared Alvarenga [facility] POCT GLUCOSE (AUTOMATED) 2023-04-19 01:22:00 Jared Alvarenga [facility] POCT GLUCOSE (AUTOMATED) 2023-04-18 21:33:00 Jared Alvarenga [facility] XR CHEST 1 VW 2023-04-18 17:25:00 Mumtaz San [facility] POCT GLUCOSE (AUTOMATED) 2023-04-18 16:57:00 Jared Alvarenga [facility] POCT GLUCOSE (AUTOMATED) 2023-04-18 13:05:00 Jared Alvarenga [facility] BASIC METABOLIC PANEL (NA, K, CL, CO2, GLUCOSE, BUN, CREATININE, CA) 2023-04-18 09:26:00 Mumtaz San [facility] CBC WITHOUT DIFF 2023-04-18 09:26:00 Mumtaz San [facility] POCT GLUCOSE (AUTOMATED) 2023-04-18 01:43:00 Jared Alvarenga [facility] POCT GLUCOSE (AUTOMATED) 2023-04-17 21:43:00 Jared Alvarenga [facility] BASIC METABOLIC PANEL (NA, K, CL, CO2, GLUCOSE, BUN, CREATININE, CA) 2023-04-17 18:18:00 Mumtaz San [facility] CBC WITH DIFF 2023-04-17 18:18:00 Mumtaz San [facility] N-TERMINAL PRO-BNP 2023-04-17 18:18:00 Jamshid Early [facility] POCT GLUCOSE (AUTOMATED) 2023-04-17 16:43:00 Jared Alvarenga [facility] VANCOMYCIN TROUGH 2023-04-17 14:40:00 Bladimir Ferraro [facility] POCT GLUCOSE (AUTOMATED) 2023-04-17 12:41:00 [facility] 2023-04-17 01:12:00 [facility]ATED) 2023-04-16 21:24:00 Jared Alvarenga [facility] POCT GLUCOSE (AUTOMATED) 2023-04-16 17:36:00 Jared Alvarenga [facility] POCT GLUCOSE (AUTOMATED) 2023-04-16 16:51:00 [facility] POCT GLUCOSE (AUTOMATED) 2023-04-16 12:51:00 Jared Alvarenga [facility] POCT GLUCOSE (AUTOMATED) 2023-04-16 12:50:00 Jared Alvarenga [facility] MAGNESIUM 2023-04-16 10:40:00 Bladimir Ferraro [facility] TROPONIN I 2023-04-16 10:40:00 Ronan [facility] BASIC METABOLIC PANEL (NA, K, CL, CO2, GLUCOSE, BUN, CREATININE, CA) 2023-04-16 10:40:00 [facility] 2023-04-16 10:40:00 Bladimir Ferraro [facility] POCT GLUCOSE (AUTOMATED) 2023-04-16 01:45:00 [facility]ATED) 2023-04-15 21:37:00 Jared Alvarenga [facility] VANCOMYCIN TROUGH 2023-04-15 17:05:00 Jaleel Boyle [facility] POCT GLUCOSE (AUTOMATED) 2023-04-15 16:45:00 Jared Alvarenga [facility] POCT GLUCOSE (AUTOMATED) 2023-04-15 12:48:00 Jared Alvarenga [facility] MAGNESIUM 2023-04-15 09:35:00 Bladimir Ferraro [facility] TROPONIN I 2023-04-15 09:35:00 [facility]OLIC PANEL (NA, K, CL, CO2, GLUCOSE, BUN, CREATININE, CA) 2023-04-15 09:35:00 [facility] 2023-04-15 09:35:00 Bladimir Ferraro [facility] N-TERMINAL PRO-BNP 2023-04-15 09:35:00 [facility] ([facility]OMATED) 2023-04-15 01:48:00 Jared Alvarenga [facility] POCT GLUCOSE (AUTOMATED) 2023-04-14 21:38:00 Jared Alvarenga [facility] POCT GLUCOSE (AUTOMATED) 2023-04-14 16:52:00 Jared Alvarenga [facility] POCT GLUCOSE (AUTOMATED) 2023-04-14 12:57:00 Jared Alvarenga [facility] MAGNESIUM 2023-04-14 10:22:00 [facility] 2023-04-14 10:22:00 Bladimir Ferraro [facility] BASIC METABOLIC PANEL (NA, K, CL, CO2, GLUCOSE, BUN, CREATININE, CA) 2023-04-14 10:22:00 [facility] 2023-04-14 10:22:00 Bladimir Ferraro [facility] N-TERMINAL PRO-BNP 2023-04-14 10:22:00 [facility]SE (AUTOMATED) 2023-04-14 02:28:00 Jared Alvarenga [facility] POCT GLUCOSE (AUTOMATED) 2023-04-13 22:40:00 Jared Alvarenga [facility] POCT GLUCOSE (AUTOMATED) 2023-04-13 16:56:00 Jared Alvarenga [facility] POCT GLUCOSE (AUTOMATED) 2023-04-13 13:09:00 Jared Alvarenga [facility] DENNISE AURIS SURVEILLANCE BY PCR (INFECTION CONTROL PURPOSES) 2023-04-13 04:20:00 Sam Meredith [facility] CT HEAD WO CONTRAST 2023-04-12 23:46:00 Tootie Chau [facility] HB ECG ROUTINE & RHYTHM STRIP 2023-04-12 22:46:51 Tootie Chau [facility] XR CHEST 1 VW 2023-04-12 22:32:34 Tootie Chau Celsa [facility] BLOOD CULTURE SCREEN 2023-04-12 21:44:00 Tootie Chau [facility] BLOOD CULTURE SCREEN 2023-04-12 21:40:00 Tootie Chau [facility] URINALYSIS 2023-04-12 21:40:00 Tootie Chau [facility] URINE CULTURE 2023-04-12 21:40:00 Tootie Chau [facility] AC PANEL 20 + LACTIC ACID 2023-04-12 21:16:00 Tootie Chau Celsa [facility] TROPONIN I 2023-04-12 21:00:00 Tootie Chau [facility] COMP. METABOLIC PANEL ([id number]) 2023-04-12 21:00:00 Tootie Chau Celsa [facility] CBC WITH DIFF 2023-04-12 21:00:00 Tootie Chau [facility] N-TERMINAL PRO-BNP 2023-04-12 21:00:00 Tootie Chau [facility] HOME HEALTH - OTHER 2023-04-04 05:01:00 Doctor Brock farias, [place] [facility] POCT GLUCOSE (AUTOMATED) 2023-03-28 12:30:00 Elisa Soares [facility] POCT GLUCOSE (AUTOMATED) 2023-03-28 12:30:00 Elisa Soares [facility] PHOSPHORUS 2023-03-28 08:50:00 Denys, Dariana [facility] MAGNESIUM 2023-03-28 08:50:00 Dariana Mcfarlane [facility] BASIC METABOLIC PANEL (NA, K, CL, CO2, GLUCOSE, BUN, CREATININE, CA) 2023-03-28 08:50:00 [facility] WITH DIFF 2023-03-28 08:50:00 Dariana Mcfarlane [facility] PHOSPHORUS 2023-03-28 08:50:00 Dariana Mcfarlane [facility] MAGNESIUM 2023-03-28 08:50:00 Dariana Mcfarlane [facility] BASIC METABOLIC PANEL (NA, K, CL, CO2, GLUCOSE, BUN, CREATININE, CA) 2023-03-28 08:50:00 [facility] DIFF 2023-03-28 08:50:00 Dariana Mcfarlane [facility] POCT GLUCOSE (AUTOMATED) 2023-03-28 01:06:00 Fany [facility] POCT GLUCOSE (AUTOMATED) 2023-03-28 01:06:00 Fany [facility] POCT GLUCOSE (AUTOMATED) 2023-03-27 21:38:00 Fany [facility] POCT GLUCOSE (AUTOMATED) 2023-03-27 21:38:00 Fany [facility] POCT GLUCOSE (AUTOMATED) 2023-03-27 16:47:00 Fany [facility] POCT GLUCOSE (AUTOMATED) 2023-03-27 16:47:00 Fany [facility] ACTIVATED PARTIAL THRMPLAS AMANUEL 2023-03-27 14:55:00 Janey João [facility] ACTIVATED PARTIAL THRMPLAS AMANUEL 2023-03-27 14:55:00 Janey João [facility] POCT GLUCOSE (AUTOMATED) 2023-03-27 13:13:00 Fany [facility] POCT GLUCOSE (AUTOMATED) 2023-03-27 13:13:00 Elisa Soares [facility] PHOSPHORUS 2023-03-27 10:15:00 [facility]-03-27 10:15:00 Reji Del Toro [facility] BASIC METABOLIC PANEL (NA, K, CL, CO2, GLUCOSE, BUN, CREATININE, CA) 2023-03-27 10:15:00 Reji Del Toro [facility] CBC WITH DIFF 2023-03-27 10:15:00 [facility] 2023-03-27 10:15:00 [facility] 2023-03-27 10:15:00 Reji Del Toro [facility] BASIC METABOLIC PANEL (NA, K, CL, CO2, GLUCOSE, BUN, CREATININE, CA) 2023-03-27 10:15:00 Reji Del Toro [facility] CBC WITH DIFF 2023-03-27 10:15:00 Reji Del Toro U [facility] ACTIVATED PARTIAL THRMPLAS AMANUEL 2023-03-27 03:32:00 João Toth [facility] ACTIVATED PARTIAL THRMPLAS AMANUEL 2023-03-27 03:32:00 João Toth [facility] POCT GLUCOSE (AUTOMATED) 2023-03-27 02:59:00 Fany [facility] POCT GLUCOSE (AUTOMATED) 2023-03-27 02:59:00 Fany [facility] POCT GLUCOSE (AUTOMATED) 2023-03-26 21:45:00 Fany [facility] POCT GLUCOSE (AUTOMATED) 2023-03-26 21:45:00 Fany [facility] ACTIVATED PARTIAL THRMPLAS AMANUEL 2023-03-26 21:34:00 João Toth Israel [facility] ACTIVATED PARTIAL THRMPLAS AMANUEL 2023-03-26 21:34:00 João Toth [facility] POCT GLUCOSE (AUTOMATED) 2023-03-26 17:37:00 Fany [facility] POCT GLUCOSE (AUTOMATED) 2023-03-26 17:37:00 Fany [facility] POCT GLUCOSE (AUTOMATED) 2023-03-26 12:18:00 Fany [facility] POCT GLUCOSE (AUTOMATED) 2023-03-26 12:18:00 Fany [facility] ACTIVATED PARTIAL THRMPLAS AMANUEL 2023-03-26 11:12:00 Janey João [facility] ACTIVATED PARTIAL THRMPLAS AMANUEL 2023-03-26 11:12:00 João Toth [facility] PHOSPHORUS 2023-03-26 06:27:00 [facility] 2023-03-26 06:27:00 Reji Del Toro [facility] BASIC METABOLIC PANEL (NA, K, CL, CO2, GLUCOSE, BUN, CREATININE, CA) 2023-03-26 06:27:00 Reji Del Toro [facility] CBC WITH DIFF 2023-03-26 06:27:00 Reji Del Toro U [facility] ACTIVATED PARTIAL THRMPLAS AMANUEL 2023-03-26 06:27:00 João Toth Israel [facility] PHOSPHORUS 2023-03-26 06:27:00 [facility] 2023-03-26 06:27:00 Reji Del Toro [facility] BASIC METABOLIC PANEL (NA, K, CL, CO2, GLUCOSE, BUN, CREATININE, CA) 2023-03-26 06:27:00 Reji Del Toro [facility] CBC WITH DIFF 2023-03-26 06:27:00 Reji Del Toro U [facility] ACTIVATED PARTIAL THRMPLAS AMANUEL 2023-03-26 06:27:00 João Toth [facility] POCT GLUCOSE (AUTOMATED) 2023-03-26 03:12:00 Fany [facility] POCT GLUCOSE (AUTOMATED) 2023-03-26 03:12:00 Fany [facility] ACTIVATED PARTIAL THRMPLAS AMANUEL 2023-03-25 23:27:00 João Toth Israel [facility] ACTIVATED PARTIAL THRMPLAS AMANUEL 2023-03-25 23:27:00 João Toth [facility] POCT GLUCOSE (AUTOMATED) 2023-03-25 23:07:00 Fany [facility] POCT GLUCOSE (AUTOMATED) 2023-03-25 23:07:00 Fany [facility] POCT GLUCOSE (AUTOMATED) 2023-03-25 20:42:00 Fany [facility] POCT GLUCOSE (AUTOMATED) 2023-03-25 20:42:00 Fany [facility] BASIC METABOLIC PANEL (NA, K, CL, CO2, GLUCOSE, BUN, CREATININE, CA) 2023-03-25 20:22:00 João Toth [facility] CBC WITH DIFF 2023-03-25 20:22:00 Shruthi Toth [facility] BASIC METABOLIC PANEL (NA, K, CL, CO2, GLUCOSE, BUN, CREATININE, CA) 2023-03-25 20:22:00 João Toth [facility] CBC WITH DIFF 2023-03-25 20:22:00 Shruthi Toth [facility] INTUBATION 2023-03-25 17:50:00 Evy Krishnamurthy [facility] CAROTID ANGIOGRAPHY 2023-03-25 17:11:00 Jerome Soares [facility] CAROTID STENTING 2023-03-25 17:11:00 Jerome Soares [facility] ANGIOPLASTY 2023-03-25 17:11:00 Jerome Soares [facility] CAROTID ANGIOGRAPHY 2023-03-25 17:11:00 Jerome Soares [facility] CAROTID STENTING 2023-03-25 17:11:00 Fany, Jerome [facility] ANGIOPLASTY 2023-03-25 17:11:00 Jerome Soares [facility] POCT GLUCOSE (AUTOMATED) 2023-03-25 15:52:00 Fany [facility] POCT GLUCOSE (AUTOMATED) 2023-03-25 15:52:00 Fany [facility] POCT GLUCOSE (AUTOMATED) 2023-03-25 12:35:00 Fany, [facility] POCT GLUCOSE (AUTOMATED) 2023-03-25 12:35:00 Fany [facility] PHOSPHORUS 2023-03-25 06:40:00 [facility]23-03-25 06:40:00 Reji Del Toro [facility] BASIC METABOLIC PANEL (NA, K, CL, CO2, GLUCOSE, BUN, CREATININE, CA) 2023-03-25 06:40:00 Reji Del Toro [facility] CBC WITH DIFF 2023-03-25 06:40:00 Reji Del Toro U [facility] ACTIVATED PARTIAL THRMPLAS AMANUEL 2023-03-25 06:40:00 João Toth [facility] PHOSPHORUS 2023-03-25 06:40:00 [facility] 2023-03-25 06:40:00 Reji Del Toro [facility] BASIC METABOLIC PANEL (NA, K, CL, CO2, GLUCOSE, BUN, CREATININE, CA) 2023-03-25 06:40:00 Reji Del Toro [facility] CBC WITH DIFF 2023-03-25 06:40:00 Reji Del Toro U [facility] ACTIVATED PARTIAL THRMPLAS AMANUEL 2023-03-25 06:40:00 João Toth [facility] POCT GLUCOSE (AUTOMATED) 2023-03-25 01:05:00 Fany [facility] POCT GLUCOSE (AUTOMATED) 2023-03-25 01:05:00 Fany, [facility] POCT GLUCOSE (AUTOMATED) 2023-03-24 22:34:00 Fany [facility] POCT GLUCOSE (AUTOMATED) 2023-03-24 22:34:00 Fany [facility] [facility] ACTIVATED PARTIAL THRMPLAS AMANUEL 2023-03-24 22:05:00 João Toth [facility] ACTIVATED PARTIAL THRMPLAS AMANUEL 2023-03-24 22:05:00 João Toth [facility] POCT GLUCOSE (AUTOMATED) 2023-03-24 20:01:00 Fany [facility] POCT GLUCOSE (AUTOMATED) 2023-03-24 20:01:00 Fany [facility] AC PANEL 21 + LACTIC ACID 2023-03-24 18:04:00 [facility] AC PANEL 21 + LACTIC ACID 2023-03-24 18:04:00 [facility] POCT GLUCOSE (AUTOMATED) 2023-03-24 16:59:00 Fany [facility] POCT GLUCOSE (AUTOMATED) 2023-03-24 16:59:00 Fany [facility] ACTIVATED PARTIAL THRMPLAS AMANUEL 2023-03-24 15:13:00 João Toth [facility] HB ABO GROUPING 2023-03-24 15:13:00 Shruthi Toth [facility] ACTIVATED PARTIAL THRMPLAS AMANUEL 2023-03-24 15:13:00 João Toth [facility] HB ABO GROUPING 2023-03-24 15:13:00 Shruthi Toth [facility] POCT GLUCOSE (AUTOMATED) 2023-03-24 13:40:00 Fany [facility] POCT GLUCOSE (AUTOMATED) 2023-03-24 13:40:00 Fany [facility] PHOSPHORUS 2023-03-24 10:46:00 [facility]-03-24 10:46:00 Reji Del Toro [facility] BASIC METABOLIC PANEL (NA, K, CL, CO2, GLUCOSE, BUN, CREATININE, CA) 2023-03-24 10:46:00 Reji Del Toro [facility] CBC WITH DIFF 2023-03-24 10:46:00 [facility] 2023-03-24 10:46:00 [facility] 2023-03-24 10:46:00 [facility]OLIC PANEL (NA, K, CL, CO2, GLUCOSE, BUN, CREATININE, CA) 2023-03-24 10:46:00 Reji Del Toro [facility] CBC WITH DIFF 2023-03-24 10:46:00 Reji Del Toro U [facility] POCT GLUCOSE (AUTOMATED) 2023-03-24 01:35:00 Fany [facility] POCT GLUCOSE (AUTOMATED) 2023-03-24 01:35:00 Fany [facility] POCT GLUCOSE (AUTOMATED) 2023-03-23 22:42:00 Fany, [facility] POCT GLUCOSE (AUTOMATED) 2023-03-23 22:42:00 Fany, [facility] POCT GLUCOSE (AUTOMATED) 2023-03-23 18:41:00 Fany, [facility] POCT GLUCOSE (AUTOMATED) 2023-03-23 18:41:00 Fany [facility] POCT GLUCOSE (AUTOMATED) 2023-03-23 13:02:00 Fany [facility] POCT GLUCOSE (AUTOMATED) 2023-03-23 13:02:00 Fany [facility] PHOSPHORUS 2023-03-23 10:35:00 [facility] 2023-03-23 10:35:00 [facility] BASIC METABOLIC PANEL (NA, K, CL, CO2, GLUCOSE, BUN, CREATININE, CA) 2023-03-23 10:35:00 Reji Del Toro [facility] CBC WITH DIFF 2023-03-23 10:35:00 [facility] 2023-03-23 10:35:00 [facility] 2023-03-23 10:35:00 Reji Del Toro Un [facility] BASIC METABOLIC PANEL (NA, K, CL, CO2, GLUCOSE, BUN, CREATININE, CA) 2023-03-23 10:35:00 Reji Del Toro [facility] CBC WITH DIFF 2023-03-23 10:35:00 Reji Del Toro [facility] POCT GLUCOSE (AUTOMATED) 2023-03-23 01:40:00 Fany [facility] POCT GLUCOSE (AUTOMATED) 2023-03-23 01:40:00 Fany [facility] POCT GLUCOSE (AUTOMATED) 2023-03-22 22:38:00 Fany [facility] POCT GLUCOSE (AUTOMATED) 2023-03-22 22:38:00 Fany [facility] POCT GLUCOSE (AUTOMATED) 2023-03-22 17:00:00 Fany [facility] POCT GLUCOSE (AUTOMATED) 2023-03-22 17:00:00 Fany [facility] POCT GLUCOSE (AUTOMATED) 2023-03-22 17:00:00 Fany [facility] XR CHEST 1 VW 2023-03-22 13:47:00 Jett Patel [facility] XR CHEST 1 VW 2023-03-22 13:47:00 Jett Patel [facility] XR CHEST 1 VW 2023-03-22 13:47:00 Jorge [place] [facility] POCT GLUCOSE (AUTOMATED) 2023-03-22 12:52:00 Fany [facility] POCT GLUCOSE (AUTOMATED) 2023-03-22 12:52:00 Fany [facility] POCT GLUCOSE (AUTOMATED) 2023-03-22 12:52:00 Fany, [facility] POCT GLUCOSE (AUTOMATED) 2023-03-22 10:44:00 Fany, [facility] POCT GLUCOSE (AUTOMATED) 2023-03-22 10:44:00 Fany [facility] POCT GLUCOSE (AUTOMATED) 2023-03-22 10:44:00 Fany [facility] PHOSPHORUS 2023-03-22 09:25:00 Nkechi Lopez [facility] MAGNESIUM 2023-03-22 09:25:00 Nkechi Lopez [facility] BASIC METABOLIC PANEL (NA, K, CL, CO2, GLUCOSE, BUN, CREATININE, CA) 2023-03-22 09:25:00 Jennifer Lopez [facility] CBC WITH DIFF 2023-03-22 09:25:00 Nkechi Lopez [facility] POCT GLUCOSE (AUTOMATED) 2023-03-22 09:25:00 Fany [facility] PHOSPHORUS 2023-03-22 09:25:00 Nkechi Lopez [facility] MAGNESIUM 2023-03-22 09:25:00 Nkechi Lopez [facility] BASIC METABOLIC PANEL (NA, K, CL, CO2, GLUCOSE, BUN, CREATININE, CA) 2023-03-22 09:25:00 Jennifer Lopez [facility] CBC WITH DIFF 2023-03-22 09:25:00 Nkechi Lopez [facility] POCT GLUCOSE (AUTOMATED) 2023-03-22 09:25:00 Fany [facility] PHOSPHORUS 2023-03-22 09:25:00 Nkechi Lopez [facility] MAGNESIUM 2023-03-22 09:25:00 Nkechi Lopez [facility] BASIC METABOLIC PANEL (NA, K, CL, CO2, GLUCOSE, BUN, CREATININE, CA) 2023-03-22 09:25:00 Jennifer Lopez [facility] CBC WITH DIFF 2023-03-22 09:25:00 Nkechi Lopez [facility] POCT GLUCOSE (AUTOMATED) 2023-03-22 09:25:00 Elisa Soares [facility] AC PANEL 21 + LACTIC ACID 2023-03-22 07:11:00 Maribell [facility] AC PANEL 21 + LACTIC ACID 2023-03-22 07:11:00 Maribell [facility] AC PANEL 21 + LACTIC ACID 2023-03-22 07:11:00 Maribell [facility] POCT GLUCOSE (AUTOMATED) 2023-03-22 05:06:00 Elisa Soares [facility] POCT GLUCOSE (AUTOMATED) 2023-03-22 05:06:00 Fany [facility] POCT GLUCOSE (AUTOMATED) 2023-03-22 05:06:00 Eilsa Soares [facility] AC PANEL 21 + LACTIC ACID 2023-03-22 02:57:00 Maribell [facility] AC PANEL 21 + LACTIC ACID 2023-03-22 02:57:00 Maribell [facility] AC PANEL 21 + LACTIC ACID 2023-03-22 02:57:00 Maribell [facility] AC PANEL 20 + LACTIC ACID 2023-03-22 00:27:00 Maribell [facility] AC PANEL 20 + LACTIC ACID 2023-03-22 00:27:00 Maribell [facility] AC PANEL 20 + LACTIC ACID 2023-03-22 00:27:00 Maribell [facility] POCT GLUCOSE (AUTOMATED) 2023-03-21 21:41:00 Fany [facility] POCT GLUCOSE (AUTOMATED) 2023-03-21 21:41:00 Fany [facility] POCT GLUCOSE (AUTOMATED) 2023-03-21 21:41:00 Elisa Soares [facility] PHOSPHORUS 2023-03-21 21:36:00 Miguel Reyna [facility] MAGNESIUM 2023-03-21 21:36:00 Miguel Reyna [facility] BASIC METABOLIC PANEL (NA, K, CL, CO2, GLUCOSE, BUN, CREATININE, CA) 2023-03-21 21:36:00 Maribell [facility] PHOSPHORUS 2023-03-21 21:36:00 [facility]-21 21:36:00 Maribell [facility] BASIC METABOLIC PANEL (NA, K, CL, CO2, GLUCOSE, BUN, CREATININE, CA) 2023-03-21 21:36:00 Maribell [facility] PHOSPHORUS 2023-03-21 21:36:00 [facility]23-03-21 21:36:00 Maribell [facility] BASIC METABOLIC PANEL (NA, K, CL, CO2, GLUCOSE, BUN, CREATININE, CA) 2023-03-21 21:36:00 Maribell [facility] FL TIME OR (NON-REPORTABLE) 2023-03-21 21:19:16 Janey João [facility] FL TIME OR (NON-REPORTABLE) 2023-03-21 21:19:16 Janey João [facility] FL TIME OR (NON-REPORTABLE) 2023-03-21 21:19:16 Janey João [facility] AC PANEL 20 + LACTIC ACID 2023-03-21 21:14:00 Maribell [facility] AC PANEL 20 + LACTIC ACID 2023-03-21 21:14:00 Maribell [facility] AC PANEL 20 + LACTIC ACID 2023-03-21 21:14:00 Maribell [facility] CBC WITH DIFF 2023-03-21 20:54:00 [facility] 2023-03-21 20:54:00 Maribell [facility] ACTIVATED PARTIAL THRMPLAS AMANUEL 2023-03-21 20:54:00 Maribell [facility] MRSA / MSSA SCREEN BY PCR, [facility] 2023-03-21 20:54:00 Jennifer Lopez [facility] CBC WITH DIFF 2023-03-21 20:54:00 [facility] / [facility]R 2023-03-21 20:54:00 Maribell [facility] ACTIVATED PARTIAL THRMPLAS AMANUEL 2023-03-21 20:54:00 Maribell [facility] MRSA / MSSA SCREEN BY PCR, [facility] 2023-03-21 20:54:00 Jennifer Lopez [facility] CBC WITH DIFF 2023-03-21 20:54:00 [facility] / INR 2023-03-21 20:54:00 Sean Reyna [facility] ACTIVATED PARTIAL THRMPLAS AMANUEL 2023-03-21 20:54:00 Maribell [facility] MRSA / MSSA SCREEN BY PCR, [facility] 2023-03-21 20:54:00 Jennifer Lopez [facility] POCT GLUCOSE (AUTOMATED) 2023-03-21 20:44:00 Fany [facility] POCT GLUCOSE (AUTOMATED) 2023-03-21 20:44:00 Fany [facility] POCT GLUCOSE (AUTOMATED) 2023-03-21 20:44:00 Fany [facility] ARTERIOGRAM 2023-03-21 15:41:00 Jerome Soares [facility] VASCULAR STENTING 2023-03-21 15:41:00 Jerome Soares [facility] ENDOVASCULAR LOWER EXTREMITY ANGIOPLASTY 2023-03-21 15:41:00 Jerome Soares [facility] ARTERIOGRAM 2023-03-21 15:41:00 Jerome Soares [facility] VASCULAR STENTING 2023-03-21 15:41:00 [facility]TREMITY ANGIOPLAST[facility] 2023-03-21 15:41:00 Jerome Soares [facility] POCT GLUCOSE (AUTOMATED) 2023-03-21 14:48:00 Fany [facility] POCT GLUCOSE (AUTOMATED) 2023-03-21 14:48:00 Fany [facility] POCT GLUCOSE (AUTOMATED) 2023-03-21 14:48:00 Fany, [facility] CONSENT/REFUSAL FOR DIAGNOSIS AND TREATMENT 2023-03-21 13:54:37 Doctor Unassigned, [place] [facility] CONSENT/REFUSAL FOR DIAGNOSIS AND TREATMENT 2023-03-21 13:54:37 Doctor Unassigned, [place] [facility] CONSENT/REFUSAL FOR DIAGNOSIS AND TREATMENT 2023-03-21 13:54:37 Doctor Unassigned, [place] [facility] ASSIGNMENT OF BENEFITS 2023-03-21 13:53:03 Docto r Unassigned, [place] [facility] ASSIGNMENT OF BENEFITS 2023-03-21 13:53:03 Docto r Unassigned, [place] [facility] ASSIGNMENT OF BENEFITS 2023-03-21 13:53:03 Docto r Unassigned, [place] [facility] HOME HEALTH - OTHER 2023-03-15 05:01:00 Doctor Brock castrosigned, [place] [facility] ASSIGNMENT OF BENEFITS 2023-03-08 20:40:56 Docto r Unassigned, [place] [facility] POCT GLUCOSE (AUTOMATED) 2023-02-21 22:01:00 Jamal Meredith [facility] POCT GLUCOSE (AUTOMATED) 2023-02-21 16:55:00 Jamal Meredith [facility] CAROTID DUPLEX BILATERAL - BY VASCULAR LAB 2023-02-21 16:46:00 Bladimir Ferraro [facility] POCT GLUCOSE (AUTOMATED) 2023-02-21 13:09:00 Jamal Meredith [facility] TROPONIN I 2023-02-21 10:40:00 [facility] THYRO[facility] STIMUL[facility] HORMONE 2023-02-21 10:40:00 Sam Meredith [facility] LIPID PANEL (96418)(TOTAL CHOLESTEROL, TRIGLYCERIDES, HDL) 2023-02-21 10:40:00 Sam Meredith [facility] GLYCOSYLATED HEMOGLOBIN (A1C) 2023-02-21 10:40:00 Sam Meredith [facility] LACTIC ACID WHOLE BLOOD 2023-02-21 04:33:00 Do betty Culp [facility] XR HIPS 3 VW LEFT 2023-02-21 02:42:18 Ramírez Culp [facility] LACTIC ACID WHOLE BLOOD 2023-02-21 01:56:00 Do betty Culp [facility] LIPASE 2023-02-21 01:43:00 [facility] TROPONIN I 2023-02-21 01:43:00 [facility]rez [facility]ulp [facility] COMP. METABOLIC PANEL (61241) 2023-02-21 01:43:00 Ramírez Culp [facility] CBC WITH DIFF 2023-02-21 01:43:00 Ramírez Culp [facility] URINALYSIS 2023-02-21 01:43:00 [facility]rez [facility] N-TERMINAL PRO-BNP 2023-02-21 01:43:00 Ramírez Culp [facility] URINE DRUG (IMMUNOASSAY) - COMPREHENSIVE DRUG SCREEN W/O REFLEX 2023-02-21 01:43:00 Ramírez Culp [facility] PATIENT FINANCIAL RESPONSIBILITY - ALL FORMS 2023-02-08 05:01:00 Doctor Unassigned, [place] [facility] - OTHER 2023-01-28 05:01:00 Doctor U nassigned, [place] [facility] PATIENT QUESTIONNAIRE 2023-01-19 05:01:00 Doctor Unassigned, [place] [facility] HEALTH 485 2023-01-09 05:01:00 Doctor Unass igned, [place] [facility] PATIENT QUESTIONNAIRE 2022-12-21 05:01:00 Doctor Unassigned, [place] [facility] - OTHER 2022-12-17 05:01:00 Doctor U nassigned, [place] [facility] OTHER 2022-12-14 05:01:00 Doctor U nassigned, [place] [facility] ASSIGNMENT OF BENEFITS 2022-12-09 13:47:13 Docto r Unassigned, [place] [facility] POCT URINALYSIS 2022-12-09 00:00:00 [facility] 2022-11-10 05:01:00 Doctor Unass igned, [place] [facility] REFERRAL- REQUEST/RESPONSE 2022-10-28 05:01:00 D octor Unassigned, [place] [facility] EXTERNAL PROVIDER RECORDS 2022-10-15 05:01:00 Do ctor Unassigned, [place] [facility] MAGNESIUM 2022-09-28 17:16:00 Brian Israel [facility] FERRITIN SERUM 2022-09-28 17:16:00 Brian Israel [facility] FREE T4 2022-09-28 17:16:00 Brian Israel [facility] THYROID STIMULATING HORMONE 2022-09-28 17:16:00 Brian Israel [facility] IRON PANEL 2022-09-28 17:16:00 Brian Israel [facility] GLYCOSYLATED HEMOGLOBIN (A1C) 2022-09-28 17:16:00 Brian Israel [facility] PATIENT QUESTIONNAIRE 2022-09-28 05:01:00 Doctor Unassigned, [place] [facility] PHYSICIAN ORDERS 2022-09-27 05:01:00 Doctor Valente signed, [place] [facility] AUTHORIZATION FOR RELEASE OF PHI 2022-09-22 05:01:00 Doctor Unassigned, [place] [facility] HEALTH - OTHER 2022-09-18 05:01:00 Doctor Brock farias, [place] [facility] US RETROPERITONEAL COMPLETE 2022-09-13 17:22:29 Jamshid Early [facility] 485 2022-09-11 06:01:00 Doctor Unass igned, [place] [facility] EXTERNAL PROVIDER - ADC CARDIOLOGY 2022-09-07 06:01:00 Doctor Unassigned, [place] [facility] HEALTH - OTHER 2022-08-03 06:01:00 Doctor Brock farias, [place] [facility] POCT GLUCOSE (AUTOMATED) 2022-07-05 22:16:00 Patel Betancur [facility] POCT GLUCOSE (AUTOMATED) 2022-07-05 17:17:00 Patel Betancru [facility] POCT GLUCOSE (AUTOMATED) 2022-07-05 13:18:00 Patel Betancur [facility] MAGNESIUM 2022-07-05 09:26:00 Bladimir Ferraro [facility] BASIC METABOLIC PANEL (NA, K, CL, CO2, GLUCOSE, BUN, CREATININE, CA) 2022-07-05 09:26:00 Bladimir Ferraro [facility] CBC WITHOUT DIFF 2022-07-05 09:26:00 [facility] 2022-07-05 09:26:00 Bladimir Ferraro [facility] POCT GLUCOSE (AUTOMATED) 2022-07-05 09:25:00 [facility]SE (AUTOMATED) 2022-07-05 06:07:00 Gypsy [facility] POCT GLUCOSE (AUTOMATED) 2022-07-05 02:18:00 [facility] PO[facility] GLUCOSE (AUTOMATED) 2022-07-04 22:20:00 Patel Betancur [facility] POCT GLUCOSE (AUTOMATED) 2022-07-04 21:16:00 Patel Betancur [facility] POCT GLUCOSE (AUTOMATED) 2022-07-04 17:07:00 Gypsy [facility] POCT GLUCOSE (AUTOMATED) 2022-07-04 13:18:00 Patel Betancur [facility] MAGNESIUM 2022-07-04 10:21:00 Bladimir Ferraro [facility] BASIC METABOLIC PANEL (NA, K, CL, CO2, GLUCOSE, BUN, CREATININE, CA) 2022-07-04 10:21:00 Bladimir Ferraro [facility] N-TERMINAL PRO-BNP 2022-07-04 10:21:00 Bladimir Ferraro [facility] POCT GLUCOSE (AUTOMATED) 2022-07-04 06:31:00 Patel Betancur [facility] POCT GLUCOSE (AUTOMATED) 2022-07-04 01:48:00 Patel Betancur [facility] POCT GLUCOSE (AUTOMATED) 2022-07-03 22:08:00 Patel Betancur [facility] MAGNESIUM 2022-07-03 19:39:00 Ronan [facility] TROPONIN I 2022-07-03 19:39:00 Ronan [facility] BASIC METABOLIC PANEL (NA, K, CL, CO2, GLUCOSE, BUN, CREATININE, CA) 2022-07-03 19:39:00 Ronan [facility] N-TERMINAL PRO-BNP 2022-07-03 19:39:00 Ronan [facility] POCT GLUCOSE (AUTOMATED) 2022-07-03 17:16:00 Gypsy [facility] CBC WITH DIFF 2022-07-03 16:20:00 Ronan Bladimir [facility] POCT GLUCOSE (AUTOMATED) 2022-07-03 13:28:00 [facility]SE (AUTOMATED) 2022-07-03 10:52:00 Patel Betancur [facility] POCT GLUCOSE (AUTOMATED) 2022-07-03 06:08:00 Patel Betancur [facility] POCT GLUCOSE (AUTOMATED) 2022-07-03 02:16:00 Patel Betancur [facility] POCT GLUCOSE (AUTOMATED) 2022-07-02 22:11:00 Gypsy [facility] POCT GLUCOSE (AUTOMATED) 2022-07-02 17:11:00 Gypsy [facility] POCT GLUCOSE (AUTOMATED) 2022-07-02 13:15:00 Patel Betancur [facility] MAGNESIUM 2022-07-02 10:20:00 Bladimir Ferraro [facility] TROPONIN I 2022-07-02 10:20:00 Ronan [facility] BASIC METABOLIC PANEL (NA, K, CL, CO2, GLUCOSE, BUN, CREATININE, CA) 2022-07-02 10:20:00 Ronan [facility] LIPID PANEL (27692)(TOTAL CHOLESTEROL, TRIGLYCERIDES, HDL) 2022-07-02 10:20:00 Ronan [facility] CBC WITH DIFF 2022-07-02 10:20:00 Ronan [facility] Loreta [facility] N-TERMINAL PRO-BNP 2022-07-02 10:20:00 Ronan [facility] POCT GLUCOSE (AUTOMATED) 2022-07-02 10:18:00 Gypsy [facility] POCT GLUCOSE (AUTOMATED) 2022-07-02 05:15:00 Gypsy [facility] POCT GLUCOSE (AUTOMATED) 2022-07-02 02:13:00 Gypsy [facility] POCT GLUCOSE (AUTOMATED) 2022-07-01 21:47:00 Gypsy [facility] POCT GLUCOSE (AUTOMATED) 2022-07-01 17:29:00 Gypsy [facility] POCT GLUCOSE (AUTOMATED) 2022-07-01 13:35:00 Gypsy [facility] POCT GLUCOSE (AUTOMATED) 2022-07-01 09:34:00 Patel Betancur [facility] PHOSPHORUS 2022-07-01 09:32:00 Patel Betancur [facility] MAGNESIUM 2022-07-01 09:32:00 Patel [facility]ur [facility] TROPONIN I 2022-07-01 09:32:00 Patel Betancur [facility] HEPATIC FUNCTION PANEL (31003) (ALB,T.PRO,BILI T,BU/BC,ALT,AST,ALK PHOS) 2022-07-01 09:32:00 Patel Betancur [facility] BASIC METABOLIC PANEL (NA, K, CL, CO2, GLUCOSE, BUN, CREATININE, CA) 2022-07-01 09:32:00 Patel Betancur [facility] CBC WITH DIFF 2022-07-01 09:32:00 Patel Betancur [facility] N-TERMINAL PRO-BNP 2022-07-01 09:32:00 Patel Betancur [facility] POCT GLUCOSE (AUTOMATED) 2022-07-01 05:26:00 Patel Betancur [facility] POCT GLUCOSE (AUTOMATED) 2022-07-01 01:58:00 Patel Betancur [facility] POCT GLUCOSE (AUTOMATED) 2022-06-30 22:26:00 Patel Betancur [facility] BLOOD CULTURE SCREEN 2022-06-30 18:43:00 Lisa Betancur [facility] BLOOD CULTURE SCREEN 2022-06-30 18:17:00 Lisa Betancur [facility] MRSA / MSSA SCREEN BY RHEA AGUDELO 2022-06-30 18:17:00 Patel Betancur [facility] POCT GLUCOSE (AUTOMATED) 2022-06-30 17:52:00 Patel Betancur [facility] POCT GLUCOSE (AUTOMATED) 2022-06-30 14:33:00 Patel Betancur [facility] XR CHEST 1 VW 2022-06-30 13:42:32 Nayely Jarvis [facility] HB ECG ROUTINE & RHYTHM STRIP 2022-06-30 13:28:23 Nayely Jarvis [facility] POCT GLUCOSE (AUTOMATED) 2022-06-30 10:14:00 Patel Betancur [facility] PHOSPHORUS 2022-06-30 10:09:00 Patel Betancur [facility] MAGNESIUM 2022-06-30 10:09:00 Patel [facility] BASIC METABOLIC PANEL (NA, K, CL, CO2, GLUCOSE, BUN, CREATININE, CA) 2022-06-30 10:09:00 Patel Betancur [facility] CBC WITH DIFF 2022-06-30 10:09:00 Patel Betancur [facility] N-TERMINAL PRO-BNP 2022-06-30 10:09:00 Patel Betancur [facility] POCT GLUCOSE (AUTOMATED) 2022-06-30 02:20:00 [facility] [facility] POCT GLUCOSE (AUTOMATED) 2022-06-29 22:15:00 Patel Betancur [facility] POCT GLUCOSE (AUTOMATED) 2022-06-29 17:14:00 Patel Betancur [facility] TRANSTHORACIC ECHO (TTE) COMPLETE 2022-06-29 15:12:00 Sushil Persaud [facility] POCT GLUCOSE (AUTOMATED) 2022-06-29 13:30:00 Patel Betancur [facility] PHOSPHORUS 2022-06-29 10:52:00 [facility] MAGNESIUM 2022-06-29 10:52:00 Patel Betancur [facility] TROPONIN I 2022-06-29 10:52:00 [facility] FUN[facility] PANEL (06979) (ALB,T.PRO,BILI T,BU/BC,ALT,AST,ALK PHOS) 2022-06-29 10:52:00 Nayely Jarvis [facility] BASIC METABOLIC PANEL (NA, K, CL, CO2, GLUCOSE, BUN, CREATININE, CA) 2022-06-29 10:52:00 Patel Betancur [facility] N-TERMINAL PRO-BNP 2022-06-29 10:52:00 Nayely Jarvis [facility] PROCALCITONIN 2022-06-29 10:52:00 Nayely Jarvis [facility] AC VBG + LACTIC ACID 2022-06-29 10:52:00 Acacia Jarvis [facility] POCT GLUCOSE (AUTOMATED) 2022-06-29 07:05:00 Patel Betancur [facility] XR CHEST 1 VW 2022-06-29 06:51:00 Nayely Jarvis [facility] POCT GLUCOSE (AUTOMATED) 2022-06-29 02:24:00 Patel Betancur [facility] POCT GLUCOSE (AUTOMATED) 2022-06-28 22:30:00 Patel Betancur [facility] POCT GLUCOSE (AUTOMATED) 2022-06-28 17:12:00 Patel Betancur [facility] POCT GLUCOSE (AUTOMATED) 2022-06-28 13:34:00 Patel Betancur [facility] PHOSPHORUS 2022-06-28 10:19:00 Patel Betancur [facility] MAGNESIUM 2022-06-28 10:19:00 Patel [facility]ancur [facility] TROPONIN I 2022-06-28 10:19:00 Nayely Jarvis [facility] BASIC METABOLIC PANEL (NA, K, CL, CO2, GLUCOSE, BUN, CREATININE, CA) 2022-06-28 10:19:00 Patel Betancur [facility] N-TERMINAL PRO-BNP 2022-06-28 10:19:00 [facility]) 2022-06-28 10:18:00 [facility]SE (AUTOMATED) 2022-06-28 05:53:00 [facility]SE (AUTOMATED) 2022-06-28 02:12:00 Patel Betancur [facility] POCT GLUCOSE (AUTOMATED) 2022-06-27 22:09:00 Patel Betancur [facility] POCT GLUCOSE (AUTOMATED) 2022-06-27 17:07:00 [facility] ([facility]ATED) 2022-06-27 14:02:00 Patel Betancur [facility] PHOSPHORUS 2022-06-27 10:55:00 Patel Betancur [facility] MAGNESIUM 2022-06-27 10:55:00 Patel Betancur [facility] TROPONIN I 2022-06-27 10:55:00 Patel Betancur [facility] BASIC METABOLIC PANEL (NA, K, CL, CO2, GLUCOSE, BUN, CREATININE, CA) 2022-06-27 10:55:00 Patel Betancur [facility] CBC WITH DIFF 2022-06-27 10:55[facility] 2022-06-27 10:55:00 Patel Betancur [facility] POCT GLUCOSE (AUTOMATED) 2022-06-27 10:54:00 Gypsy Patel [facility] POCT GLUCOSE (AUTOMATED) 2022-06-27 05:44:00 Gypsy [facility] POCT GLUCOSE (AUTOMATED) 2022-06-27 02:24:00 Patel Betancur [facility] CT ABDOMEN PELVIS WO CONTRAST 2022-06-26 19:55:00 Ramírez Culp [facility] BLOOD CULTURE SCREEN 2022-06-26 19:09:00 Rhiannon Culp [facility] XR CHEST 1 VW 2022-06-26 19:05:13 Ramírez Culp [facility] LIPASE 2022-06-26 18:07:00 Ramírez Culp [facility] MAGNESIUM 2022-06-26 18:07:00 Ramírez Culp [facility] TROPONIN I 2022-06-26 18:07:00 Ramírez Culp [facility] COMP. METABOLIC PANEL (21655) 2022-06-26 18:07:00 Ramírez Culp [facility] CBC WITH DIFF 2022-06-26 18:07:00 Ramírez Culp [facility] PROTHROMBIN TIME / INR 2022-06-26 18:07:00 Dave Culp [facility] ACTIVATED PARTIAL THRMPLAS AMANUEL 2022-06-26 18:07:00 Ramírez Culp [facility] URINALYSIS 2022-06-26 18:07:00 Ramírez Culp [facility] URINE CULTURE 2022-06-26 18:07:00 Ramírez Culp [facility] RAPID INFLUENZA A/B 2022-06-26 18:07:00 Arvind Culp [facility] N-TERMINAL PRO-BNP 2022-06-26 18:07:00 Ramírez Culp [facility] LACTIC ACID WHOLE BLOOD 2022-06-26 18:07:00 Do betty Culp [facility] COVID-19 (ID NOW RAPID TESTING) 2022-06-26 18:07:00 Ramírez Culp [facility] LAB ONLY COVID INTERPRETATION 2022-06-26 18:07:00 Ramírez Culp [facility] BLOOD CULTURE SCREEN 2022-06-26 18:04:00 Rhiannon Culp [facility] HB ECG ROUTINE & RHYTHM STRIP 2022-06-26 17:55:44 Ramírez Culp [facility] CONSENT/REFUSAL FOR DIAGNOSIS AND TREATMENT 2022-06-26 17:34:38 Doctor Unassigned, [place] [facility] HEALTH - OTHER 2022-05-20 06:01:00 Doctor Brock farias, [place] [facility] FLU VACC(),65+YR,0.5 ML,IM,ADJUVANTED,QUAD(FLUA D) 2022-05-10 20:09:55 Brian Israel [facility] PATIENT QUESTIONNAIRE 2022-05-10 06:01:00 Doctor Unassigned, [place] [facility] HEALTH - OTHER 2022-05-03 05:01:00 Doctor Brock farias, [place] [facility] AUTHORIZATION TO RELEASE PHI TO [facility] 2022-04-07 05:01:00 Doctor Unassigned, [place] [facility] DME/SUPPLY JUSTIFICATION 2022-03-24 05:01:00 Doc tor Unassigned, [place] [facility] PATIENT QUESTIONNAIRE 2022-03-16 05:01:00 Doctor Unassigned, [place] [facility] Arthrd Ant Ntrbd Min Dsc Crv [facility] Cardiac Catheterization [facility] Cataract Surgery [facility] Total Hysterectomy [facility] Plan of Care Planned Activity Planned Date Details Comments Source Diagnostic Test Pending 2021-04-13 00:00:00 HbA1c (hemoglobin A1c), blood [code = HbA1c (hemoglobin A1c), blood] [facility] Diagnostic Test Pending 2021-04-13 00:00:00 CMP, serum or plasma [code = CMP, serum or plasma] [facility] Encounters Start Date/Time End Date/Time Encounter Type Admission Type Attending [facility] Care Department Encounter ID Source 2022-07-23 09:09:12 Outpatient [facility] [id number] [facility] 2022-04-05 16:46:26 Outpatient [facility] [id number] [facility] 2022-03-05 08:56:39 Outpatient [facility] [id number] [facility] 2022-02-16 04:20:33 Outpatient [facility] [id number] [facility] 2022-02-04 07:58:20 Outpatient [facility] [id number] [facility] 2022-01-07 11:08:09 Outpatient [facility] [id number] [facility] 2021-08-27 23:47:45 Outpatient NEW ADMISSION ENCCLR ENCCLR [id number] ENCCLR 2021-07-30 13:23:53 Outpatient 3 [id number] ENCPL RHIANNA [id number] [facility] 2021-07-30 13:23:41 Outpatient 3 [id number] ENCPL REF [id number] 1 1129 [facility] 2021-06-12 10:36:50 Outpatient READMISSIO N [facility]IVE PENDING, CITY DETECTIVE PENDING ENCCLR ENCCLR [id number] ENCCLR 2021-05-01 17:37:15 Emergency [facility] [id number] [facility] 2021-05-01 17:11:08 Emergency [facility] [id number] [facility] 2021-05-01 12:10:06 Emergency [facility] [id number] [facility] 2024-09-25 16:00:00 2024-09-25 16:00:00 Outpatient JEROME MOSER [facility] [id number] [facility] 2024-09-24 00:00:00 2024-09-25 02:04:42 Orders Only Doctor Unassigned, [place] Doctor Unassigned, [place] [facility] 1.2840.114 350.1.13.10 4.2.7.2.686 [id number] [facility] 2024-09-20 15:30:00 2024-09-20 16:22:32 Outpatient JEROME MOSER [facility] [id number] [facility] 2024-09-06 13:30:00 2024-09-06 13:30:00 Outpatient Diogenes SOARES JEROME [facility] [id number] [facility] 2024-08-21 00:00:00 2024-08-22 02:04:16 Orders Only Doctor Unassigned, [place] Doctor Unassigned, [place] [facility] 1..114 350.1.13.10 4.2.7.2.686 [id number] [id number] [facility] 2024-08-21 00:00:00 2024-08-22 02:04:05 Orders Only Doctor Unassigned, [place] Doctor Unassigned, [place] [facility] 1..114 350.1.13.10 4.2.7.2.686 [id number] [facility] 2024-08-20 00:00:00 2024-08-21 21:59:31 Telephone Brian Israel [facility]?MALIKA [facility] MEDICAL OFFICE BUILDING 1.84.114 350.1.13.10 4.2.7.2.686 [id number] 044 [id number] [facility] 2024-03-12 00:00:00 2024-08-18 07:00:33 Orders Only Lou Tomlin Perla [facility]?MALIKA [facility] MEDICAL OFFICE BUILDING 1.2840.114 350.1.13.10 4.2.7.2.686 [id number] [id number] [facility] 2024-05-23 00:00:00 2024-08-18 06:35:37 Orders Only Doctor Unassigned, [place] Doctor Unassigned, [place] [facility] ([place] 1.2.840.114 350.1.13.10 4.2.7.2.686 [id number] [id number] [facility] 2024-06-19 00:00:00 2024-08-18 06:27:43 Orders Only Doctor Unassigned, [place] Doctor Unassigned, [place] [facility] ([place] 1.2840.114 350.1.13.10 4.2.7.2.686 [id number] [id number] [facility] 2023-06-06 00:00:00 2024-08-18 02:36:44 Orders Only Tomlin, Lou Tomlin, Critical access hospital JOHN?[facility] MEDICAL OFFICE BUILDING 1.2840.114 350.1.13.10 4.2.7.2.686 [id number] 044 [id number] [facility] 2024-08-16 00:00:00 2024-08-16 11:52:33 Telephone Lindy [facility] JOHN?[facility] MEDICAL OFFICE BUILDING 1.2840.114 350.1.13.10 4.2.7.2.686 [id number] [facility] 2024-08-10 00:00:00 2024-08-14 17:22:39 Refill Lindy [facility] JOHN?[facility] MEDICAL OFFICE BUILDING 1.2840.114 350.1.13.10 4.2.7.2.686 [id number] [facility] 2024-08-03 00:00:00 2024-08-03 14:59:11 Telephone Kley, [facility]?MALIKA REILLY MEDICAL OFFICE BUILDING 1.2.840.114 350.1.13.10 4.2.7.2.686 [id number] [facility] 2024-08-02 13:45:00 2024-08-02 13:45:00 Outpatient R JEROME SOARES [facility] [id number] [facility] 2024-07-29 00:00:00 2024-07-30 12:59:26 Refill Lindy [facility]?MALIKA [facility] MEDICAL OFFICE BUILDING 1.2.840.114 350.1.13.10 4.2.7.2.686 [id number] [id number] [facility] 2024-07-25 13:30:00 2024-07-25 13:30:00 Outpatient R JAMSHID EARLY [facility] [id number] [facility] 2024-07-17 09:57:36 2024-07-17 23:59:00 Hospital Encounter [facility] 1.2.840.114 350.1.13.10 4.2.7.2.686 [id number] [facility] 2024-07-17 09:57:30 2024-07-17 23:59:00 Outpatient R ROBER SOARESIQ [facility] [id number] [facility] 2024-07-17 09:57:30 2024-07-17 23:59:00 Hospital Encounter [facility] BUILDING 1.2.840.114 350.1.13.10 4.2.7.2.686 [id number] [facility] 2024-07-16 11:20:00 2024-07-16 11:20:00 [facility] [id number] [facility] 2024-07-08 00:00:00 2024-07-10 12:40:48 Refill Lindy Brian [facility] JOHN?MALIKA [facility] MEDICAL OFFICE BUILDING 1..840.114 350.1.13.10 4.2.7.2.686 [id number] 044 [id number] [facility] 2024-06-28 00:00:00 2024-06-28 12:31:24 Refill Lindy Brian [facility] JOHN?MALIKA [facility] MED[facility] BUILDING 1..840.114 350.1.13.10 4.2.7.2.686 [id number] [facility] 2024-06-25 00:00:00 2024-06-26 22:16:10 Refill Grabiel Christianbettyseth [facility] JOHN?[facility] MEDICAL OFFICE BUILDING 1..840.114 350.1.13.10 4.2.7.2.686 [id number] 044 [id number] [facility] 2024-06-25 15:30:00 2024-06-25 15:30:00 Outpatient R JAMSHID EARLY [facility] [id number] [facility] 2024-06-21 13:30:00 2024-06-21 13:30:00 Outpatient JEROME MOSER [facility] [id number] [facility] 2024-06-19 16:00:00 2024-06-19 16:00:00 Outpatient JEROME MOSER [facility] [id number] [facility] 2024-06-19 00:00:00 2024-06-19 14:24:04 Refill Lindy Brian [facility] BU[facility] 1..840.114 350.1.13.10 4.2.7.2.686 [id number] [facility] 2024-06-17 00:00:00 2024-06-18 14:39:09 Refill Lindy [facility] JOHN?MALIKA RE[facility] MEDICAL OFFICE BUILDING 1.2.840.114 350.1.13.10 4.2.7.2.686 [id number] [facility] 2024-06-12 15:00:00 2024-06-12 15:00:00 Outpatient Diogenes ROBER SOARESIQ [facility] [id number] [facility] 2024-06-12 00:00:00 2024-06-12 13:03:28 [facility]phone [facility] 1.2.840.114 350.1.13.10 4.2.7.2.686 [id number] [facility] 2024-06-05 00:00:00 2024-06-05 17:01:35 Telephone Lindy [facility] MEDICAL OFFICE BUILDING 1.2.840.114 350.1.13.10 4.2.7.2.686 [id number] [facility] 2024-06-04 00:00:00 2024-06-05 09:27:59 Telephone Lindy [facility] MEDICAL OFFICE BUILDING 1.2.840.114 350.1.13.10 4.2.7.2.686 [id number] 044 [id number] [facility] 2024-05-31 00:00:00 2024-06-01 08:40:11 Nehal Thakur [facility] MEDICAL OFFICE BUILDING 1.2.840.114 350.1.13.10 4.2.7.2.686 [id number] [id number] [facility] 2024-05-29 10:30:00 2024-05-29 10:30:00 Outpatient JAMSHID ROBERTSON [facility] [id number] [facility] 2024-05-28 13:00:00 2024-05-28 13:00:00 Outpatient ELSI BASHIRDIQUI, FAKBETTYA [facility] [id number] [facility] 2024-05-27 00:00:00 2024-05-28 09:35:29 Refill Lindy [facility] JOHN?MALIKA [facility] MEDICAL OFFICE BUILDING 1.2.840.114 350.1.13.10 4.2.7.2.686 [id number] [facility] 2024-05-25 00:00:00 2024-05-25 13:34:16 Telephone Lindy [facility] JOHN?[facility] MEDICAL OFFICE BUILDING 1.2840.114 350.1.13.10 4.2.7.2.686 [id number] [facility] 2024-05-23 00:00:00 2024-05-23 15:44:12 Letter (Out) [facility] 1.2.840.114 350.1.13.10 4.2.7.2.686 [id number] [facility] 2024-05-15 00:00:00 2024-05-15 15:17:55 Telephone Lindy [facility] JOHN?[facility] MEDICAL OFFICE BUILDING 1.2840.114 350.1.13.10 4.2.7.2.686 [id number] [facility] 2024-05-14 00:00:00 2024-05-15 08:33:46 Telephone Elsi Christian [facility] JOHN?[facility] MEDICAL OFFICE BUILDING 1.2840.114 350.1.13.10 4.2.7.2.686 [id number] [facility] 2024-05-14 00:00:00 2024-05-14 17:04:16 Telephone Lindy [facility] JOHN?[facility] MEDICAL OFFICE BUILDING 1.2.840.114 350.1.13.10 4.2.7.2.686 [id number] 044 [id number] [facility] 2024-04-05 00:00:00 2024-05-12 18:27:53 Patient Secure Msg Doctor Unassigned, [place] Doctor Unassigned, [place] [facility] 1.2840.114 350.1.13.10 4.2.7.2.686 [id number] [id number] [facility] 2024-05-10 00:00:00 2024-05-11 10:08:05 [facility] BU[facility] 1..114 350.1.13.10 4.2.7.2.686 [id number] [facility] 2024-05-10 15:15:00 2024-05-10 16:16:51 Outpatient R JEROME SOARES [facility] [id number] [facility] 2024-05-10 15:15:00 2024-05-10 16:16:51 Office Visit Fany [facility] 1.0.114 350.1.13.10 4.2.7.2.686 [id number] [facility] 2024-05-09 00:00:00 2024-05-09 16:18:20 RefJamshid Patel BUILDING 1.2840.114 350.1.13.10 4.2.7.2.686 [id number] [facility] 2024-05-09 00:00:00 2024-05-09 13:40:38 [facility] BUILD[facility] 1.2840.114 350.1.13.10 4.2.7.2.686 [id number] [facility] 2024-05-08 00:00:00 2024-05-08 00:00:00 Outpatient R JAMSHID EARLY [facility] [id number] [facility] 2024-05-04 10:30:00 2024-05-04 10:30:00 Outpatient KAMLESH MORENO [facility] [id number] [facility] 2024-05-03 00:00:00 2024-05-03 16:22:26 Patient Outreach Talia Epstein Laura L SHEARN JEF GAGE 1..840.114 350.1.13.10 4.2.7.2.686 [id number] [facility] 2024-05-01 00:00:00 2024-05-03 10:54:51 Patient Secure Msg Doctor Unassigned, [place] Doctor Unassigned, [place] [facility] 1..840.114 350.1.13.10 4.2.7.2.686 [id number] [facility] 2024-05-01 00:00:00 2024-05-02 09:00:54 Telephone Michael [facility] MEDICAL OFFICE BUILDING 1..840.114 350.1.13.10 4.2.7.2.686 [id number] 044 [id number] [facility] 2024-04-30 13:00:00 2024-04-30 13:49:34 Outpatient R CHRISTIANELSI Coreas FAKEHA [facility] [id number] [facility] 2024-04-30 13:00:00 2024-04-30 13:49:34 Office Visit Mihcael [facility] MEDICAL OFFICE BUILDING 1..840.114 350.1.13.10 4.2.7.2.686 [id number] [id number] [facility] 2024-04-27 00:00:00 2024-04-27 21:53:36 Refill Lindy [facility] JOHN?MALIKA [facility] MEDICAL OFFICE BUILDING 1.2840.114 350.1.13.10 4.2.7.2.686 [id number] 044 [id number] [facility] 2024-04-27 00:00:00 2024-04-27 15:05:37 Patient Outreach Talia Epstein, Talia MOOREY VLADHOLLIE 1.2840.114 350.1.13.10 4.2.7.2.686 [id number] [facility] 2024-04-27 00:00:00 2024-04-27 09:49:29 Telephone Lindy [facility] BUILDING 1.2840.114 350.1.13.10 4.2.7.2.686 [id number] [facility] 2024-04-26 00:00:00 2024-04-27 06:59:03 Telephone Lindy [facility] MEDICAL OFFICE BUILDING 1.2840.114 350.1.13.10 4.2.7.2.686 [id number] [facility] 2024-04-26 00:00:00 2024-04-26 15:14:38 Patient Outreach Talia Epstein, Talia MOOREY VLADHOLLIE 1.20.114 350.1.13.10 4.2.7.2.686 [id number] [facility] 2024-04-26 00:00:00 2024-04-26 08:24:06 Refill Lindy [facility] JOHN?MALIKA [facility] MEDICAL OFFICE BUILDING 1.2840.114 350.1.13.10 4.2.7.2.686 [id number] [facility] 2024-04-25 00:00:00 2024-04-25 00:00:00 Outpatient R JAMSHID EARLY [facility] [id number] [facility] 2024-04-19 00:00:00 2024-04-19 16:22:54 Patient Outreach Lucian Talia Hilda Epstein Talia Hilda GAGE 1.2840.114 350.1.13.10 4.2.7.2.686 [id number] [facility] 2024-04-18 00:00:00 2024-04-19 10:49:23 Telephone [facility] 1.2840.114 350.1.13.10 4.2.7.2.686 [id number] [facility] 2024-04-18 00:00:00 2024-04-18 13:35:40 Patient Outreach Neymar Epsteina Hilda Epstein Talia Hilda GAGE 1.2840.114 350.1.13.10 4.2.7.2.686 [id number] [facility] 2024-04-18 00:00:00 2024-04-18 13:02:59 Telephone Brian Israel [facility] 1.2.840.114 350.1.13.10 4.2.7.2.686 [id number] [facility] 2024-04-18 00:00:00 2024-04-18 10:27:34 Patient Outreach Lucian Talia Hilda Epstein Talia Hilda [facility]UCHS [facility] 1.2840.114 350.1.13.10 4.2.7.2.686 [id number] [facility] 2024-04-17 10:04:30 2024-04-17 23:59:00 Hospital Encounter Emili Gee [facility]?MALIKA [facility]ILD[facility] 1..840.114 350.1.13.10 4.2.7.2.686 [id number] [facility] 2024-04-17 09:45:00 2024-04-17 10:45:29 Outpatient R [facility] [id number] [facility] 2024-04-17 09:45:00 2024-04-17 10:45:29 Office Visit Emili Gee Philippe Larsen [facility] MEDICAL OFFICE BUILDING 1..840.114 350.1.13.10 4.2.7.2.686 [id number] [facility] 2024-04-10 13:00:00 2024-04-10 13:00:00 Outpatient R JAYDEN MITCHELL [facility] [id number] [facility] 2024-04-03 14:20:00 2024-04-03 15:03:33 Outpatient R CHRISTIAN, FAKEHA CHRISTIAN, FAKA [facility] [id number] [facility] 2024-04-03 14:20:00 2024-04-03 15:03:33 [facility] MEDICAL OFFICE BUILDING 1..840.114 350.1.13.10 4.2.7.2.686 [id number] 044 [id number] [facility] 2024-03-27 00:00:00 2024-03-27 10:58:34 Telephone Brian Israel [facility] JOHN?[facility] MEDICAL OFFICE BUILDING 1..840.114 350.1.13.10 4.2.7.2.686 [id number] 044 [id number] [facility] 2024-03-27 10:40:00 2024-03-27 10:40:00 Outpatient R CHRISTIAN, FAKEHA CHRISTIAN, FAKEHA [facility] [id number] [facility] 2024-03-20 11:00:00 2024-03-20 11:00:00 Outpatient R ELSI CHRISTIAN FAKEHA [facility] [id number] [facility] 2024-03-20 00:00:00 2024-03-20 09:26:27 Refill Lindy [facility] JOHN?[facility] MEDICAL OFFICE BUILDING 1.2.840.114 350.1.13.10 4.2.7.2.686 [id number] 044 [id number] [facility] 2024-03-17 00:00:00 2024-03-19 08:26:09 Telephone Lindy [facility] JOHN?[facility] MEDICAL OFFICE BUILDING 1.2.840.114 350.1.13.10 4.2.7.2.686 [id number] 044 [id number] [facility] 2024-03-14 00:00:00 2024-03-14 14:36:05 Telephone [facility] MEDICAL OFFICE BUILDING 1.2.840.114 350.1.13.10 4.2.7.2.686 [id number] [facility] 2024-03-13 13:40:00 2024-03-13 13:40:00 Outpatient R ÁNGEL ISRAELYULI ISRAEL [facility] [id number] [facility] 2024-03-09 00:00:00 2024-03-12 08:20:15 Telephone [facility] MEDICAL OFFICE BUILDING 1.2.840.114 350.1.13.10 4.2.7.2.686 [id number] 044 [id number] [facility] 2024-03-01 00:00:00 2024-03-01 15:06:40 Telephone Jamshid Early [facility] ALICE BUILDING 1.2.840.114 350.1.13.10 4.2.7.2.686 [id number] 059 [id number] [facility] 2024-02-28 00:00:00 2024-02-28 00:00:00 Outpatient R JAMSHID EARLY [facility] [id number] [facility] 2024-02-27 00:00:00 2024-02-27 00:00:00 Outpatient R JAMSHID EARLY [facility] [id number] [facility] 2024-02-22 00:00:00 2024-02-24 17:59:29 Refill Lindy [facility] 1.2.840.114 350.1.13.10 4.2.7.2.686 [id number] 044 [id number] [facility] 2024-02-10 00:00:00 2024-02-16 10:20:25 Telephone Jerome Soares [facility] 1.2.840.114 350.1.13.10 4.2.7.2.686 [id number] [facility] 2024-02-09 00:00:00 2024-02-10 13:05:50 Refill Shahzad Wyatt [facility] MEDICAL OFFICE BUILDING 1.2.840.114 350.1.13.10 4.2.7.2.686 [id number] 044 [id number] [facility] 2024-02-09 00:00:00 2024-02-09 13:13:59 Telephone Jamshid Early [facility] ALICE BUILDING 1.2.840.114 350.1.13.10 4.2.7.2.686 [id number] 059 [id number] [facility] 2024-02-01 00:00:00 2024-02-03 04:51:46 Telephone [facility]A [facility] MED[facility] OFFICE BUILDING 1.2.840.114 350.1.13.10 4.2.7.2.686 [id number] 044 [id number] [facility] 2024-01-31 13:00:00 2024-01-31 16:22:54 Outpatient R SHARATH JAYKELL [facility] [id number] [facility] 2024-01-31 13:00:00 2024-01-31 16:22:54 [facility] 1.2.840.114 350.1.13.10 4.2.7.2.686 [id number] 059 [id number] [facility] 2024-01-31 10:40:00 2024-01-31 11:44:53 Office Visit [facility]IKA [facility] OFFICE BUILDING 1.2.840.114 350.1.13.10 4.2.7.2.686 [id number] 044 [id number] [facility] 2024-01-29 00:00:00 2024-01-31 09:33:11 Refill [facility]A [facility] OFFICE BUILDING 1.2.840.114 350.1.13.10 4.2.7.2.686 [id number] 044 [id number] [facility] 2024-01-30 10:30:00 2024-01-30 10:30:00 Outpatient R SHARATH JAYKELL [facility] [id number] [facility] 2024-01-17 00:00:00 2024-01-17 15:48:10 Telephone Abigail Ley 1.2.840.114 350.1.13.10 4.2.7.2.686 [id number] [facility] 2024-01-16 16:01:00 2024-01-16 20:29:00 Emergency X SHAHZAD PRO [facility] ERT [id number] [facility] 2024-01-16 16:01:00 2024-01-16 20:29:00 Emergency Shahzad Pro [facility] 1.2.840.114 350.1.13.10 4.2.7.2.686 [id number] 084 [id number] [facility] 2023-12-27 10:20:00 2023-12-27 11:44:04 Outpatient R [facility] [id number] [facility] 2023-12-27 10:20:00 2023-12-27 11:44:04 Office Visit Lindy [facility]?MALIKA [facility] MEDICAL OFFICE BUILDING 1.2.840.114 350.1.13.10 4.2.7.2.686 [id number] 044 [id number] [facility] 2023-12-26 10:00:00 2023-12-26 10:00:00 Outpatient R [facility] [id number] [facility] 2023-12-22 00:00:00 2023-12-22 14:11:57 Telephone Lindy [facility] MEDICAL OFFICE BUILDING 1.2.840.114 350.1.13.10 4.2.7.2.686 [id number] 044 [id number] [facility] 2023-12-21 00:00:00 2023-12-22 11:37:26 Refill Lindy [facility] MEDICAL OFFICE BUILDING 1.2.840.114 350.1.13.10 4.2.7.2.686 [id number] 044 [id number] [facility] 2023-12-16 10:30:00 2023-12-16 10:30:00 Outpatient R JAMSHID [facility]LY [facility] [id number] [facility] 2023-12-07 00:00:00 2023-12-09 12:41:51 Refill Lindy [facility] JOHN?MALIKA [facility] MED[facility] OFFICE BUILDING 1.840.114 350.1.13.10 4.2.7.2.686 [id number] 044 [id number] [facility] 2023-12-09 00:00:00 2023-12-09 10:35:59 [facility]ill [facility] 1.84.114 350.1.13.10 4.2.7.2.686 [id number] 059 [id number] [facility] 2023-12-05 00:00:00 2023-12-06 15:17:25 Telephone Lindy [facility] JOHN?MALIKA [facility] MEDICAL OFFICE BUILDING 1.84.114 350.1.13.10 4.2.7.2.686 [id number] 044 [id number] [facility] 2023-11-22 11:00:00 2023-11-22 11:00:00 Outpatient R ALLYSON CHRISTIANCASIMIRO [facility] [id number] [facility] 2023-11-21 00:00:00 2023-11-21 15:31:31 Telephone Lindy [facility] JOHN?MALIKA [facility] MEDICAL OFFICE BUILDING 1.840.114 350.1.13.10 4.2.7.2.686 [id number] 044 [id number] [facility] 2023-09-05 00:00:00 2023-11-21 06:45:38 Refill Lindy [facility] JOHN[facility] 1.840.114 350.1.13.10 4.2.7.2.686 [id number] 044 [id number] [facility] 2023-10-17 00:00:00 2023-11-19 18:08:34 Patient Secure Msg Doctor Unassigned, [place] [facility] ALICE BUILDING 1.840.114 350.1.13.10 4.2.7.2.686 [id number] [facility] 2023-11-14 12:00:00 2023-11-14 12:15:00 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, Cameron Israel [facility]MALIKA [facility] MEDICAL OFFICE BUILDING 1.840.114 350.1.13.10 4.2.7.2.686 [id number] [facility] 2023-11-14 12:00:00 2023-11-14 12:00:00 Outpatient R BRIAN ISRAEL [facility] [id number] [facility] 2023-11-11 12:15:00 2023-11-11 12:15:00 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, Cameron Israel [facility] MEDICAL OFFICE BUILDING 1.840.114 350.1.13.10 4.2.7.2.686 [id number] 353 [id number] [facility] 2023-11-11 12:15:00 2023-11-11 12:09:45 Outpatient R SERAAllisonBRIAN [facility] [id number] [facility] 2023-11-11 10:40:00 2023-11-11 12:05:37 Office Visit Lindy [facility] MEDICAL OFFICE BUILDING 1.284.114 350.1.13.10 4.2.7.2.686 [id number] 044 [id number] [facility] 2023-11-07 00:00:00 2023-11-08 10:12:20 Telephone [facility] MEDICAL OFFICE BUILDING 1..840.114 350.1.13.10 4.2.7.2.686 [id number] 044 [id number] [facility] 2023-11-03 00:00:00 2023-11-03 00:00:00 Telephone Bridgette Black 1..114 350.1.13.10 4.2.7.2.686 [id number] [facility] 2023-11-01 00:00:00 2023-11-01 00:00:00 [facility] MEDICAL OFFICE BUILDING 1.0.114 350.1.13.10 4.2.7.2.686 [id number] 044 [id number] [facility] 2023-10-30 14:38:00 2023-10-30 17:42:00 [facility] [id number] [facility] 2023-10-30 14:38:00 2023-10-30 17:42:00 Emergency [facility] 1.0.114 350.1.13.10 4.2.7.2.686 [id number] 084 [id number] [facility] 2023-10-28 00:00:00 2023-10-28 00:00:00 Telephone Ivy Wale [facility] JOHN?[facility] MEDICAL OFFICE BUILDING 1..114 350.1.13.10 4.2.7.2.686 [id number] [facility] 2023-10-26 00:00:00 2023-10-26 00:00:00 Refill Ivy Wale [facility] MEDICAL OFFICE BUILDING 1..114 350.1.13.10 4.2.7.2.686 [id number] 220 [id number] [facility] 2023-10-26 00:00:00 2023-10-26 00:00:00 Refill Lindy [facility] JOHN?[facility] MEDICAL OFFICE BUILDING 1.2.840.114 350.1.13.10 4.2.7.2.686 [id number] 044 [id number] [facility] 2023-10-14 00:00:00 2023-10-14 00:00:00 Telephone Lindy Brian [facility] JOHN?MALIKA [facility] MEDICAL OFFICE BUILDING 1.2840.114 350.1.13.10 4.2.7.2.686 [id number] 044 [id number] [facility] 2023-10-11 00:00:00 2023-10-11 00:00:00 Telephone Nehal Titus [facility] MEDICAL OFFICE BUILDING 1.2840.114 350.1.13.10 4.2.7.2.686 [id number] 044 [id number] [facility] 2023-10-04 13:49:09 2023-10-04 23:59:00 Outpatient R STEPH NUR [facility] [id number] [facility] 2023-10-04 13:49:09 2023-10-04 23:59:00 Hospital Encounter Steph Nru [facility] 1.840.114 350.1.13.10 4.2.7.2.686 [id number] [facility] 2023-09-28 00:00:00 2023-09-28 00:00:00 Refill [facility]MALIKA [facility] MEDICAL OFFICE BUILDING 1.2840.114 350.1.13.10 4.2.7.2.686 [id number] 044 [id number] [facility] 2023-09-22 00:00:00 2023-09-22 00:00:00 Refquincy Israel [facility] PROFESSIO NAL BUILDING 1.2840.114 350.1.13.10 4.2.7.2.686 [id number] 044 [id number] [facility] 2023-09-21 10:00:00 2023-09-21 11:07:24 Outpatient R JAMSHID [facility] [id number] [facility] 2023-09-21 10:00:00 2023-09-21 11:07:24 Office Visit Jamshid EarlyElisabetKeri [facility] ALICE BUILDING 1.2.840.114 350.1.13.10 4.2.7.2.686 [id number] 059 [id number] [facility] 2023-09-21 10:30:00 2023-09-21 10:45:00 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 Visit 2, Adc Lab Jamshid EarlyKeri [facility] ALICE BUILDING 1.2.840.114 350.1.13.10 4.2.7.2.686 [id number] 353 [id number] [facility] 2023-09-07 00:00:00 2023-09-07 00:00:00 Telephone Lindy [facility]?MALIKA [facility] MEDICAL OFFICE BUILDING 1.2.840.114 350.1.13.10 4.2.7.2.686 [id number] 044 [id number] [facility] 2023-09-06 00:00:00 2023-09-06 00:00:00 Orders Only Doctor Unassigned, [place] [facility] 1.2840.114 350.1.13.10 4.2.7.2.686 [id number] [facility] 2023-09-02 00:00:00 2023-09-02 00:00:00 Telephone Sera [facility]?MALIKA [facility] MEDICAL OFFICE BUILDING 1.2840.114 350.1.13.10 4.2.7.2.686 [id number] 044 [id number] [facility] 2023-08-24 11:00:00 2023-08-24 11:00:00 Outpatient DAVID TOMPKINS HAIDER [facility] [id number] [facility] 2023-08-24 00:00:00 2023-08-24 00:00:00 Nurse Triage Simba Bailey [facility] 1.840.114 350.1.13.10 4.2.7.2.686 [id number] 019 [id number] [facility] 2023-08-23 00:00:00 2023-08-23 00:00:00 Telephone Jamshid Early [facility] 1..840.114 350.1.13.10 4.2.7.2.686 [id number] 059 [id number] [facility] 2023-08-22 00:00:00 2023-08-22 00:00:00 Refill Lindy [facility] JOHN?MALIKA [facility] MEDICAL OFFICE BUILDING 1..840.114 350.1.13.10 4.2.7.2.686 [id number] 044 [id number] [facility] 2023-08-12 11:00:00 2023-08-12 11:24:47 Outpatient R [facility]ACANO [facility] [id number] [facility] 2023-08-12 11:00:00 2023-08-12 11:24:47 Office Visit Holly Wilkesnhayaan [facility] ALICE BUILDING 1..840.114 350.1.13.10 4.2.7.2.686 [id number] 085 [id number] [facility] 2023-08-09 00:00:00 2023-08-09 00:00:00 Refill Lindy [facility] JOHN?[facility] BUILD[facility] 1..840.114 350.1.13.10 4.2.7.2.686 [id number] 044 [id number] [facility] 2023-08-08 00:00:00 2023-08-08 00:00:00 Orders Only Doctor Unassigned, [place] [facility] 1.2.840.114 350.1.13.10 4.2.7.2.686 [id number] [id number] [facility] 2023-07-25 00:00:00 2023-07-25 00:00:00 Orders Only Doctor Unassigned, [place] [facility] 1.2.840.114 350.1.13.10 4.2.7.2.686 [id number] [id number] [facility] 2023-07-20 00:00:00 2023-07-20 00:00:00 Refquincy [facility] OFFICE BUILDING 1.2840.114 350.1.13.10 4.2.7.2.686 [id number] 044 [id number] [facility] 2023-07-17 00:00:00 2023-07-17 00:00:00 Refill [facility] OFFICE BUILDING 1.2840.114 350.1.13.10 4.2.7.2.686 [id number] 044 [id number] [facility] 2023-07-14 00:00:00 2023-07-14 00:00:00 Telephone Jamshid Early [facility] 1.2.840.114 350.1.13.10 4.2.7.2.686 [id number] 059 [id number] [facility] 2023-07-13 08:30:00 2023-07-13 23:59:00 Hospital Encounter Jamshid Early [facility] ALICE BUILDING 1.2840.114 350.1.13.10 4.2.7.2.686 [id number] [id number] [facility] 2023-07-13 09:20:00 2023-07-13 11:09:34 Outpatient R DAVID LIMA HAIDER [facility] [id number] [facility] 2023-07-13 09:20:00 2023-07-13 11:09:34 [facility] 1.2.840.114 350.1.13.10 4.2.7.2.686 [id number] 059 [id number] [facility] 2023-07-13 00:00:00 2023-07-13 00:00:00 Telephone Jamshid Early [facility] ALICE BUILDING 1.2.840.114 350.1.13.10 4.2.7.2.686 [id number] 059 [id number] [facility] 2023-07-13 00:00:00 2023-07-13 00:00:00 Telephone Wale Haynes [facility]?MALIKA [facility] MEDICAL OFFICE BUILDING 1.2.840.114 350.1.13.10 4.2.7.2.686 [id number] [facility] 2023-07-11 00:00:00 2023-07-11 00:00:00 Refquincy Israel Brian [facility]?MALIKA [facility] MEDICAL OFFICE BUILDING 1.2.840.114 350.1.13.10 4.2.7.2.686 [id number] 044 [id number] [facility] 2023-07-09 00:00:00 2023-07-09 00:00:00 Refill Erick Larios [facility] MEDICAL OFFICE BUILDING 1.2.840.114 350.1.13.10 4.2.7.2.686 [id number] 220 [id number] [facility] 2023-07-08 14:00:00 2023-07-08 15:10:42 Outpatient R BRIAN ISRAEL BRIAN [facility] [id number] [facility] 2023-07-08 14:00:00 2023-07-08 15:10:42 Office Visit Brian Israel [facility] JOHN?MALIKA [facility] MEDICAL OFFICE BUILDING 1.2.84.114 350.1.13.10 4.2.7.2.686 [id number] 044 [id number] [facility] 2023-06-29 10:00:00 2023-06-29 10:00:00 Outpatient R DAVID LIMA HAID[facility] [id number] [facility] 2023-06-29 00:00:00 2023-06-29 00:00:00 Orders Only Doctor Unassigned, [place] [facility] 1.284.114 350.1.13.10 4.2.7.2.686 [id number] [id number] [facility] 2023-06-24 00:00:00 2023-06-24 00:00:00 Telephone Jamshid Early [facility] 1.2.840.114 350.1.13.10 4.2.7.2.686 [id number] 059 [id number] [facility] 2023-06-22 11:00:00 2023-06-22 11:51:38 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 Visit 2, Adc Lab Jamshid Early [facility] ALICE BUILDING 1.2.840.114 350.1.13.10 4.2.7.2.686 [id number] [facility] 2023-06-22 10:00:00 2023-06-22 10:46:49 Outpatient R JAMSHID [facility] [id number] [facility] 2023-06-22 10:00:00 2023-06-22 10:46:49 Office Visit Jamshid Early [facility] ALICE BUILDING 1.2.840.114 350.1.13.10 4.2.7.2.686 [id number] 059 [id number] [facility] 2023-06-22 00:00:00 2023-06-22 00:00:00 Refill Lindy [facility] JOHN?MALIKA [facility] MEDICAL OFFICE BUILDING 1.2.840.114 350.1.13.10 4.2.7.2.686 [id number] 044 [id number] [facility] 2023-06-21 00:00:00 2023-06-21 00:00:00 Telephone Lindy [facility] JOHN?MALIKA [facility] MEDICAL OFFICE BUILDING 1.2840.114 350.1.13.10 4.2.7.2.686 [id number] 044 [id number] [facility] 2023-06-21 00:00:00 2023-06-21 00:00:00 Telephone [facility] MEDICAL OFFICE BUILDING 1.2840.114 350.1.13.10 4.2.7.2.686 [id number] 044 [id number] [facility] 2023-06-21 00:00:00 2023-06-21 00:00:00 Orders Only Doctor Unassigned, [place] [facility] 1.2840.114 350.1.13.10 4.2.7.2.686 [id number] [facility] 2023-06-17 00:00:00 2023-06-17 00:00:00 Telephone Lindy [facility] MEDICAL OFFICE BUILDING 1.2.840.114 350.1.13.10 4.2.7.2.686 [id number] 044 [id number] [facility] 2023-06-15 11:30:00 2023-06-15 11:30:00 Outpatient NEHAL JUAN [facility] [id number] [facility] 2023-06-13 10:20:00 2023-06-13 10:20:00 Outpatient R BRIAN ISRAEL CHRISTINE [facility] [id number] [facility] 2023-06-13 00:00:00 2023-06-13 00:00:00 Telephone BedollaJosé Miguel [facility] 1.2.840.114 350.1.13.10 4.2.7.2.686 [id number] [facility] 2023-06-09 09:30:00 2023-06-09 10:00:00 Office Visit Michoacano Wilkes [facility] ALICE BUILDING 1.2.840.114 350.1.13.10 4.2.7.2.686 [id number] 085 [id number] [facility] 2023-06-09 09:30:00 2023-06-09 09:30:00 Outpatient R MICHOACANO WILKES SHITXAyaan [facility] [id number] [facility] 2023-06-07 00:00:00 2023-06-07 00:00:00 Patient Secure Msg Doctor Unassigned, [place] [facility]?MALIKA [facility] MEDICAL OFFICE BUILDING 1.2.840.114 350.1.13.10 4.2.7.2.686 [id number] [id number] [facility] 2023-06-07 00:00:00 2023-06-07 00:00:00 Telephone Lindy Brian [facility] JOHN?[facility] 1.2.840.114 350.1.13.10 4.2.7.2.686 [id number] [id number] [facility] 2023-06-06 12:06:20 2023-06-06 23:59:00 Outpatient R NEHAL TITUS [facility] [id number] [facility] 2023-06-06 12:06:20 2023-06-06 23:59:00 Hospital Encounter Nehal Titus [facility] 1.2840.114 350.1.13.10 4.2.7.2.686 [id number] [facility] 2023-06-06 11:30:00 2023-06-06 12:00:00 Office Visit Nehal Titus [facility] JOHN?MALIKA [facility] OFF[facility]ILD[facility] 1.2840.114 350.1.13.10 4.2.7.2.686 [id number] [id number] [facility] 2023-06-06 00:00:00 2023-06-06 00:00:00 Telephone Jina Rock [facility] 1.2840.114 350.1.13.10 4.2.7.2.686 [id number] [facility] 2023-06-03 00:00:00 2023-06-03 00:00:00 Telephone Lindy [facility] JOHN?[facility] 1.2840.114 350.1.13.10 4.2.7.2.686 [id number] [id number] [facility] 2023-06-03 00:00:00 2023-06-03 00:00:00 Telephone Lindy [facility] JOHN?[facility]ILD[facility] 1.2840.114 350.1.13.10 4.2.7.2.686 [id number] [id number] [facility] 2023-06-02 00:00:00 2023-06-02 00:00:00 Telephone Lindy [facility] JOHN?[facility] 1.2840.114 350.1.13.10 4.2.7.2.686 [id number] 044 [id number] [facility] 2023-06-01 00:00:00 2023-06-01 00:00:00 Telephone Lindy [facility] JOHN?[facility] 1.2.840.114 350.1.13.10 4.2.7.2.686 [id number] [id number] [facility] 2023-05-31 00:00:00 2023-05-31 00:00:00 Telephone Jerome Soares [facility] 1.2.840.114 350.1.13.10 4.2.7.2.686 [id number] [facility] 2023-05-31 00:00:00 2023-05-31 00:00:00 Telephone Lindy [facility] JOHN?[facility] MED[facility] OFF[facility] BUILD[facility] 1.2840.114 350.1.13.10 4.2.7.2.686 [id number] 044 [id number] [facility] 2023-05-30 00:00:00 2023-05-30 00:00:00 Telephone Lindy [facility] JOHN?[facility] MEDICAL OFFICE BUILDING 1.2840.114 350.1.13.10 4.2.7.2.686 [id number] 044 [id number] [facility] 2023-05-24 00:00:00 2023-05-24 00:00:00 Telephone Lindy [facility] JOHN?MALIKA [facility] MEDICAL OFFICE BUILDING 1.2840.114 350.1.13.10 4.2.7.2.686 [id number] 044 [id number] [facility] 2023-05-23 10:00:00 2023-05-23 11:15:31 Outpatient R ERICK LARIOS YU [facility] [id number] [facility] 2023-05-23 10:00:00 2023-05-23 11:15:31 Office Visit Erick Larios [facility] JOHN?MALIKA [facility] MEDICAL OFFICE BUILDING 1.2840.114 350.1.13.10 4.2.7.2.686 [id number] [facility] 2023-05-23 10:30:00 2023-05-23 10:30:00 Outpatient R ERICK LARIOS [facility] [id number] [facility] 2023-05-20 00:00:00 2023-05-20 00:00:00 Orders Only Doctor Unassigned, [place] [facility] 1..840.114 350.1.13.10 4.2.7.2.686 [id number] [facility] 2023-05-19 13:00:00 2023-05-19 13:00:00 Outpatient R JAMSHID EARLY [facility] [id number] [facility] 2023-05-18 00:00:00 2023-05-18 00:00:00 [facility] 1..840.114 350.1.13.10 4.2.7.2.686 [id number] 044 [id number] [facility] 2023-05-17 00:00:00 2023-05-17 00:00:00 [facility]ill [facility] MEDICAL OFFICE BUILDING 1..840.114 350.1.13.10 4.2.7.2.686 [id number] 044 [id number] [facility] 2023-05-16 15:45:00 2023-05-16 15:45:00 Outpatient R JOSÉ MIGUEL BEDOLLA MITCHELL [facility] [id number] [facility] 2023-05-16 00:00:00 2023-05-16 00:00:00 [facility] MED[facility] OFF[facility] BUILD[facility] 1..840.114 350.1.13.10 4.2.7.2.686 [id number] 044 [id number] [facility] 2023-05-16 00:00:00 2023-05-16 00:00:00 Telephone Kley, [facility]?MALIKA [facility] MED[facility] OFF[facility] BUILDING 1.2840.114 350.1.13.10 4.2.7.2.686 [id number] 044 [id number] [facility] 2023-05-12 00:00:00 2023-05-12 00:00:00 Telephone Jerome Soares [facility] 1.2840.114 350.1.13.10 4.2.7.2.686 [id number] [facility] 2023-05-09 10:40:00 2023-05-09 10:40:00 [facility] [id number] [facility] 2023-05-05 14:45:00 2023-05-05 16:12:55 Outpatient R [facility] [id number] [facility] 2023-05-05 14:45:00 2023-05-05 16:12:55 Office Visit Fany Jerome [facility] 1.2840.114 350.1.13.10 4.2.7.2.686 [id number] [facility] 2023-05-05 10:20:00 2023-05-05 11:20:20 Office [facility] 1.2840.114 350.1.13.10 4.2.7.2.686 [id number] 044 [id number] [facility] 2023-05-05 00:00:00 2023-05-05 00:00:00 Orders Only Doctor Unassigned, [place] [facility] 1.2.840.114 350.1.13.10 4.2.7.2.686 [id number] [id number] [facility] 2023-04-27 11:00:00 2023-04-27 11:57:05 Outpatient R DAVID LIMA HAIDER [facility] [id number] [facility] 2023-04-27 11:00:00 2023-04-27 11:57:05 Office Visit David Lima [facility] 1..114 350.1.13.10 4.2.7.2.686 [id number] 059 [id number] [facility] 2023-04-21 16:20:00 2023-04-21 16:20:00 Outpatient [facility] SER[facility]RIAN [facility] [id number] [facility] 2023-04-20 00:00:00 2023-04-20 00:00:00 Transition of Care Alda Morrison [facility] 1..114 350.1.13.10 4.2.7.2.686 [id number] [facility] 2023-04-12 15:17:00 2023-04-19 18:13:00 Inpatient X LYLE [facility] [id number] [facility] 2023-04-12 15:17:00 2023-04-19 18:13:00 Hospital Encounter Tootie Chau David [facility] 1..114 350.1.13.10 4.2.7.2.686 [id number] 081 [id number] [facility] 2023-04-15 00:00:00 2023-04-15 00:00:00 Refill [facility] 1.84.114 350.1.13.10 4.2.7.2.686 [id number] 044 [id number] [facility] 2023-04-12 00:00:00 2023-04-12 00:00:00 Telephone Lindy [facility] JOHN?[facility] MEDICAL OFFICE BUILDING 1.2.114 350.1.13.10 4.2.7.2.686 [id number] 044 [id number] [facility] 2023-04-06 00:00:00 2023-04-06 00:00:00 Telephone Lindy [facility] 1.2.840.114 350.1.13.10 4.2.7.2.686 [id number] 044 [id number] [facility] 2023-04-04 00:00:00 2023-04-04 00:00:00 Orders Only Doctor Unassigned, [place] [facility] 1.2.840.114 350.1.13.10 4.2.7.2.686 [id number] [id number] [facility] 2023-03-29 00:00:00 2023-03-29 00:00:00 Transition of Care Rodo Gomez [facility] 1.2.840.114 350.1.13.10 4.2.7.2.686 [id number] [facility] 2023-03-29 00:00:00 2023-03-29 00:00:00 Telephone [place]oacano Wilkes [facility] NAL BUILDING 1.2.840.114 350.1.13.10 4.2.7.2.686 [id number] 085 [id number] [facility] 2023-03-29 00:00:00 2023-03-29 00:00:00 Telephone Lindy [facility]?MALIKA [facility] MEDICAL OFFICE BUILDING 1.2.840.114 350.1.13.10 4.2.7.2.686 [id number] 044 [id number] [facility] 2023-03-21 08:51:00 2023-03-28 13:25:00 Inpatient JEROME [facility]ER [facility] [id number] [facility] 2023-03-21 08:51:00 2023-03-28 13:25:00 Hospital Encounter Formerly [facility] 1.2.840.114 350.1.13.10 4.2.7.2.686 [id number] 089 [id number] [facility] 2023-03-25 12:28:00 2023-03-25 14:55:00 Anesthesia Event Mary Poon Brita M [facility] 1.2.840.114 350.1.13.10 4.2.7.2.686 [id number] [facility] 2023-03-25 11:09:00 2023-03-25 13:23:00 Surgery Former[facility] 1.2.840.114 350.1.13.10 4.2.7.2.686 [id number] [facility] 2023-03-21 10:30:00 2023-03-21 12:59:00 Surgery Former[facility] 1.2.840.114 350.1.13.10 4.2.7.2.686 [id number] [facility] 2023-03-21 10:40:00 2023-03-21 10:40:00 Outpatient Diogenes ISRAEL, BRIAN ISRAEL, BRIAN [facility] [id number] [facility] 2023-03-15 00:00:00 2023-03-15 00:00:00 Orders Only Doctor Unassigned, [place] [facility] 1.2.840.114 350.1.13.10 4.2.7.2.686 [id number] [facility] 2023-03-14 00:00:00 2023-03-14 00:00:00 Patient Secure Msg Doctor Unassigned, [place] [facility] 1.2.840.114 350.1.13.10 4.2.7.2.686 [id number] [facility] 2023-03-10 16:30:00 2023-03-10 17:07:51 Outpatient R JEROME SOARES [facility] [id number] [facility] 2023-03-10 16:30:00 2023-03-10 17:07:51 Office Visit Jerome Soares [facility] 1.0.114 350.1.13.10 4.2.7.2.686 [id number] [facility] 2023-03-10 00:00:00 2023-03-10 00:00:00 Telephone Lindy [facility] MEDICAL OFFICE BUILDING 1.2.114 350.1.13.10 4.2.7.2.686 [id number] 044 [id number] [facility] 2023-03-08 16:20:00 2023-03-08 17:12:57 [facility] [id number] [facility] 2023-03-08 16:20:00 2023-03-08 17:12:57 Office Visit Seraallison [facility] MEDICAL OFFICE BUILDING 1.2114 350.1.13.10 4.2.7.2.686 [id number] 044 [id number] [facility] 2023-03-08 00:00:00 2023-03-08 00:00:00 Orders Only Doctor Unassigned, [place] [facility] 1.20.114 350.1.13.10 4.2.7.2.686 [id number] [id number] [facility] 2023-02-28 00:00:00 2023-02-28 00:00:00 Refill Lindy [facility] MEDICAL OFFICE BUILDING 1..114 350.1.13.10 4.2.7.2.686 [id number] 044 [id number] [facility] 2023-02-22 00:00:00 2023-02-22 00:00:00 Outpatient ROEL CADENA [facility] [id number] [facility] 2023-02-22 00:00:00 2023-02-22 00:00:00 Transition of Care Alda Morrison 1..114 350.1.13.10 4.2.7.2.686 [id number] [facility] 2023-02-22 00:00:00 2023-02-22 00:00:00 Patient Secure Msg Doctor Unassigned, [place] [facility] 1.114 350.1.13.10 4.2.7.2.686 [id number] 019 [id number] [facility] 2023-02-20 20:53:00 2023-02-21 19:00:00 Outpatient López [facility] [id number] [facility] 2023-02-20 20:53:00 2023-02-21 19:00:00 Emergency Ramírez Culp Mohammad A. [facility] 1.114 350.1.13.10 4.2.7.2.686 [id number] [id number] [facility] 2023-02-15 00:00:00 2023-02-15 00:00:00 Refill Seraallison [facility]?MALIKA [facility] MEDICAL OFFICE BUILDING 1.114 350.1.13.10 4.2.7.2.686 [id number] 044 [id number] [facility] 2023-02-11 00:00:00 2023-02-11 00:00:00 Telephone Lindy [facility] MEDICAL OFFICE BUILDING 1.114 350.1.13.10 4.2.7.2.686 [id number] 044 [id number] [facility] 2023-02-10 00:00:00 2023-02-10 00:00:00 [facility] 1.2840.114 350.1.13.10 4.2.7.2.686 [id number] 205 [id number] [facility] 2023-02-09 00:00:00 2023-02-09 00:00:00 Telephone Viktor [facility] 1.840.114 350.1.13.10 4.2.7.2.686 [id number] [facility] 2023-02-08 11:00:00 2023-02-08 13:22:21 Outpatient R VIKTOR [facility] [id number] [facility] 2023-02-08 11:00:00 2023-02-08 13:22:21 Office Visit Viktor Roel [facility] 1.840.114 350.1.13.10 4.2.7.2.686 [id number] [facility] 2023-02-08 00:00:00 2023-02-08 00:00:00 Orders Only Doctor Unassigned, [place] [facility] 1.0.114 350.1.13.10 4.2.7.2.686 [id number] [id number] [facility] 2023-02-02 00:00:00 2023-02-02 00:00:00 Refill Lindy [facility]?MALIKA [facility] MEDICAL OFFICE BUILDING 1..114 350.1.13.10 4.2.7.2.686 [id number] 044 [id number] [facility] 2023-01-28 00:00:00 2023-01-28 00:00:00 Refill Lindy [facility] MEDICAL OFFICE BUILDING 1.2.840.114 350.1.13.10 4.2.7.2.686 [id number] 044 [id number] [facility] 2023-01-28 00:00:00 2023-01-28 00:00:00 Orders Only Doctor Unassigned, [place] [facility] 1.2840.114 350.1.13.10 4.2.7.2.686 [id number] [id number] [facility] 2023-01-21 00:00:00 2023-01-21 00:00:00 Brian Mims [facility]?JUSTINSeth [facility] MEDICAL OFFICE BUILDING 1.2840.114 350.1.13.10 4.2.7.2.686 [id number] 044 [id number] [facility] 2023-01-20 00:00:00 2023-01-20 00:00:00 Patient Secure Msg Doctor Unassigned, [place] [facility] 1.2840.114 350.1.13.10 4.2.7.2.686 [id number] [facility] 2023-01-19 00:00:00 2023-01-19 00:00:00 Orders Only Doctor Unassigned, [place] [facility] 1.2840.114 350.1.13.10 4.2.7.2.686 [id number] [facility] 2023-01-18 09:40:00 2023-01-18 09:40:00 Outpatient R BRIAN ISRAEL BRIAN [facility] [id number] [facility] 2023-01-10 10:40:00 2023-01-10 10:40:00 Outpatient BRIAN PRUETT [facility] [id number] [facility] 2023-01-09 00:00:00 2023-01-09 00:00:00 Orders Only Doctor Unassigned, [place] [facility] 1.2840.114 350.1.13.10 4.2.7.2.686 [id number] [id number] [facility] 2023-01-06 00:00:00 2023-01-06 00:00:00 Telephone Lindy [facility] JOHN?MALIKA [facility] MEDICAL OFFICE BUILDING 1.2840.114 350.1.13.10 4.2.7.2.686 [id number] 044 [id number] [facility] 2023-01-05 00:00:00 2023-01-05 00:00:00 [facility]ill [facility] OFF[facility] BUILD[facility] 1.2840.114 350.1.13.10 4.2.7.2.686 [id number] 044 [id number] [facility] 2022-12-24 10:40:00 2022-12-24 11:39:26 Outpatient R XENIA LOMELI [facility] [id number] [facility] 2022-12-24 10:40:00 2022-12-24 11:39:26 Office Visit Xenia Lomeli [facility] BU[facility] 1.2840.114 350.1.13.10 4.2.7.2.686 [id number] 080 [id number] [facility] 2022-12-24 00:00:00 2022-12-24 00:00:00 Telephone Lindy [facility] JOHN?[facility] MEDICAL OFFICE BUILDING 1.2840.114 350.1.13.10 4.2.7.2.686 [id number] 044 [id number] [facility] 2022-12-22 00:00:00 2022-12-22 00:00:00 Refill Lindy [facility] JOHN?[facility] MEDICAL OFFICE BUILDING 1.2840.114 350.1.13.10 4.2.7.2.686 [id number] 044 [id number] [facility] 2022-12-21 10:40:00 2022-12-21 11:18:46 Outpatient R CRYSTALLESAIA [facility] [id number] [facility] 2022-12-21 10:40:00 2022-12-21 11:18:46 Office Visit Crystal Marycarmen Stevens [facility] NAL BUILDING 1.840.114 350.1.13.10 4.2.7.2.686 [id number] 059 [id number] [facility] 2022-12-21 00:00:00 2022-12-21 00:00:00 Orders Only Doctor Unassigned, [place] [facility] 1.840.114 350.1.13.10 4.2.7.2.686 [id number] [facility] 2022-12-17 11:40:00 2022-12-17 11:40:00 Outpatient R XENIA LOMELI [facility] [id number] [facility] 2022-12-17 00:00:00 2022-12-17 00:00:00 Orders Only Doctor Unassigned, [place] [facility] 1.840.114 350.1.13.10 4.2.7.2.686 [id number] [id number] [facility] 2022-12-14 00:00:00 2022-12-14 00:00:00 Orders Only Doctor Unassigned, [place] [facility] 1.840.114 350.1.13.10 4.2.7.2.686 [id number] [id number] [facility] 2022-12-09 09:00:00 2022-12-09 10:30:44 Outpatient R BRIAN ISRAEL [facility] [id number] [facility] 2022-12-09 09:00:00 2022-12-09 10:30:44 Office Visit Brian Israel [facility] JOHN?MALIKA [facility] MEDICAL OFFICE BUILDING 1.840.114 350.1.13.10 4.2.7.2.686 [id number] 044 [id number] [facility] 2022-12-09 00:00:00 2022-12-09 00:00:00 Orders Only Doctor Unassigned, [place] [facility] 1.2.840.114 350.1.13.10 4.2.7.2.686 [id number] [id number] [facility] 2022-12-08 00:00:00 2022-12-08 00:00:00 Telephone Lindy [facility]?MALIKA [facility] MEDICAL OFFICE BUILDING 1.2.840.114 350.1.13.10 4.2.7.2.686 [id number] 044 [id number] [facility] 2022-11-30 11:45:00 2022-11-30 11:45:00 Outpatient R MISA CEBALLOS [facility] [id number] [facility] 2022-11-29 00:00:00 2022-11-29 00:00:00 Refill Erick Larios [facility] 1.2.840.114 350.1.13.10 4.2.7.2.686 [id number] [facility] 2022-11-26 13:40:00 2022-11-26 13:40:00 Outpatient R BRIAN ISRAEL [facility] [id number] [facility] 2022-11-25 11:00:00 2022-11-25 11:00:00 Outpatient R MICHOACANO WILKES SHIWAN [facility] [id number] [facility] 2022-11-22 15:00:00 2022-11-22 15:00:00 Outpatient ERICK BRANNON YU [facility] [id number] [facility] 2022-11-18 00:00:00 2022-11-18 00:00:00 Telephone Lindy [facility] JOHN?MALIKA REILLY MEDICAL OFFICE BUILDING 1.840.114 350.1.13.10 4.2.7.2.686 [id number] 044 [id number] [facility] 2022-11-16 10:40:00 2022-11-16 10:40:00 Outpatient R SERAAllisonBRIANAllison [facility] [id number] [facility] 2022-11-10 00:00:00 2022-11-10 00:00:00 Telephone Lindy [facility] JOHN?MALIKA [facility] BUILDING 1.840.114 350.1.13.10 4.2.7.2.686 [id number] 044 [id number] [facility] 2022-11-10 00:00:00 2022-11-10 00:00:00 Orders Only Doctor Unassigned, [place] [facility] 1.84.114 350.1.13.10 4.2.7.2.686 [id number] [facility] 2022-11-09 10:30:00 2022-11-09 10:30:00 Outpatient R CONSTANCE STONE [facility] [id number] [facility] 2022-11-08 11:20:00 2022-11-08 11:20:00 Outpatient R MARYCARMEN ROJAS [facility] [id number] [facility] 2022-10-29 00:00:00 2022-10-29 00:00:00 Telephone Lindy [facility] JOHN?MALIKA [facility]ILD[facility] 1.840.114 350.1.13.10 4.2.7.2.686 [id number] 044 [id number] [facility] 2022-10-28 13:00:00 2022-10-28 13:40:00 Telemedici ne Visit Lindy [facility] JOHN?MALIKA [facility] MEDICAL OFFICE BUILDING 1.0.114 350.1.13.10 4.2.7.2.686 [id number] 044 [id number] [facility] 2022-10-28 13:00:00 2022-10-28 13:00:00 Outpatient R BRIAN ISRAEL [facility] [id number] [facility] 2022-10-28 00:00:00 2022-10-28 00:00:00 Refill Lindy [facility] JOHN?MALIKA [facility] MEDICAL OFFICE BUILDING 1.114 350.1.13.10 4.2.7.2.686 [id number] 044 [id number] [facility] 2022-10-28 00:00:00 2022-10-28 00:00:00 Orders Only Doctor Unassigned, [place] [facility] 1.114 350.1.13.10 4.2.7.2.686 [id number] [id number] [facility] 2022-10-26 13:40:00 2022-10-26 13:40:00 Outpatient R BRIAN ISRAEL [facility] [id number] [facility] 2022-10-25 00:00:00 2022-10-25 00:00:00 Telephone Lindy [facility] JOHN?[facility] MEDICAL OFFICE BUILDING 1.84114 350.1.13.10 4.2.7.2.686 [id number] 044 [id number] [facility] 2022-10-25 00:00:00 2022-10-25 00:00:00 Telephone Lindy [facility] JOHN?[facility] MEDICAL OFFICE BUILDING 1.114 350.1.13.10 4.2.7.2.686 [id number] 044 [id number] [facility] 2022-10-19 10:30:00 2022-10-19 10:30:00 Outpatient R JAMSHID EARLY [facility] [id number] [facility] 2022-10-18 00:00:00 2022-10-18 00:00:00 Telephone Lindy [facility] JOHN?MALIKA [facility] 1.2840.114 350.1.13.10 4.2.7.2.686 [id number] 044 [id number] [facility] 2022-10-15 00:00:00 2022-10-15 00:00:00 Telephone [facility] 1.2840.114 350.1.13.10 4.2.7.2.686 [id number] [id number] [facility] 2022-10-15 00:00:00 2022-10-15 00:00:00 Orders Only Doctor Unassigned, [place] [facility] 1.2840.114 350.1.13.10 4.2.7.2.686 [id number] [facility] 2022-10-14 00:00:00 2022-10-14 00:00:00 Telephone Lindy [facility] JOHN?MALIKA [facility] MEDICAL OFFICE BUILDING 1.2840.114 350.1.13.10 4.2.7.2.686 [id number] 044 [id number] [facility] 2022-10-13 00:00:00 2022-10-13 00:00:00 Refill Lindy [facility] JOHN?MALIKA [facility] MEDICAL OFFICE BUILDING 1.2840.114 350.1.13.10 4.2.7.2.686 [id number] 044 [id number] [facility] 2022-10-13 00:00:00 2022-10-13 00:00:00 Telephone Lindy [facility] MEDICAL OFFICE BUILDING 1.2840.114 350.1.13.10 4.2.7.2.686 [id number] 044 [id number] [facility] 2022-10-11 00:00:00 2022-10-11 00:00:00 Patient Outreach Talia Kelly [facility] MEDICAL OFFICE BUILDING 1.2.840.114 350.1.13.10 4.2.7.2.686 [id number] 044 [id number] [facility] 2022-10-07 00:00:00 2022-10-07 00:00:00 Telephone Lindy [facility] JOHN?[facility] MEDICAL OFFICE BUILDING 1..840.114 350.1.13.10 4.2.7.2.686 [id number] [id number] [facility] 2022-09-30 00:00:00 2022-09-30 00:00:00 Telephone Lindy [facility] JOHN?[facility] MEDICAL OFFICE BUILDING 1..840.114 350.1.13.10 4.2.7.2.686 [id number] [id number] [facility] 2022-09-28 11:45:00 2022-09-28 12:13:52 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, Cameron Early Lindy [facility] JOHN?[facility] MEDICAL OFFICE BUILDING 1..840.114 350.1.13.10 4.2.7.2.686 [id number] [facility] 2022-09-28 10:40:00 2022-09-28 11:44:33 [facility]patient [facility] [id number] [facility] 2022-09-28 10:40:00 2022-09-28 11:44:33 Office Visit Lindy [facility] JOHN?[facility] MEDICAL OFFICE BUILDING 1.2.840.114 350.1.13.10 4.2.7.2.686 [id number] 044 [id number] [facility] 2022-09-28 00:00:00 2022-09-28 00:00:00 Patient Outreach Talia Kelly [facility] 1.2.840.114 350.1.13.10 4.2.7.2.686 [id number] 044 [id number] [facility] 2022-09-28 00:00:00 2022-09-28 00:00:00 Orders Only Doctor Unassigned, [place] [facility] 1.2.840.114 350.1.13.10 4.2.7.2.686 [id number] [facility] 2022-09-27 00:00:00 2022-09-27 00:00:00 Orders Only Doctor Unassigned, [place] [facility] 1.2.840.114 350.1.13.10 4.2.7.2.686 [id number] [facility] 2022-09-23 00:00:00 2022-09-23 00:00:00 Telephone Brian Israel [facility]?MALIKA [facility] MEDICAL OFFICE BUILDING 1.2.840.114 350.1.13.10 4.2.7.2.686 [id number] 044 [id number] [facility] 2022-09-22 00:00:00 2022-09-22 00:00:00 Telephone Jamshid Early [facility] ALICE BUILDING 1.2.840.114 350.1.13.10 4.2.7.2.686 [id number] 059 [id number] [facility] 2022-09-22 00:00:00 2022-09-22 00:00:00 Orders Only Doctor Unassigned, [place] [facility] 1.2.840.114 350.1.13.10 4.2.7.2.686 [id number] [id number] [facility] 2022-09-18 00:00:00 2022-09-18 00:00:00 Orders Only Doctor Unassigned, [place] [facility] 1.2840.114 350.1.13.10 4.2.7.2.686 [id number] [facility] 2022-09-13 11:22:44 2022-09-13 23:59:00 Outpatient R SHARATH JAYKELL [facility] [id number] [facility] 2022-09-13 11:22:44 2022-09-13 23:59:00 Hospital Encounter Jamshid Early [facility] 1.2840.114 350.1.13.10 4.2.7.2.686 [id number] [facility] 2022-09-11 00:00:00 2022-09-11 00:00:00 Orders Only Doctor Unassigned, [place] [facility] 1.2840.114 350.1.13.10 4.2.7.2.686 [id number] [facility] 2022-09-07 14:00:00 2022-09-07 14:53:27 [facility] [id number] [facility] 2022-09-07 14:00:00 2022-09-07 14:53:27 Office Visit Jamshid Early [facility] NAL [facility] 1.840.114 350.1.13.10 4.2.7.2.686 [id number] 059 [id number] [facility] 2022-09-07 00:00:00 2022-09-07 00:00:00 Brian Gomez [facility]?MALIKA [facility]Y MEDICAL OFFICE BUILDING 1..840.114 350.1.13.10 4.2.7.2.686 [id number] 044 [id number] [facility] 2022-09-07 00:00:00 2022-09-07 00:00:00 Orders Only Doctor Unassigned, [place] [facility] 1.0114 350.1.13.10 4.2.7.2.686 [id number] [facility] 2022-09-02 00:00:00 2022-09-02 00:00:00 Telephone [facility]MALIKA [facility] MEDICAL OFFICE BUILDING 1.840.114 350.1.13.10 4.2.7.2.686 [id number] 044 [id number] [facility] 2022-09-02 00:00:00 2022-09-02 00:00:00 Telephone Lindy [facility] NAL BUILDING 1..114 350.1.13.10 4.2.7.2.686 [id number] 044 [id number] [facility] 2022-09-01 00:00:00 2022-09-01 00:00:00 Refill Lindy [facility] MEDICAL OFFICE BUILDING 1.114 350.1.13.10 4.2.7.2.686 [id number] 044 [id number] [facility] 2022-08-31 10:40:00 2022-08-31 11:30:07 Outpatient R LINDY [facility] [id number] [facility] 2022-08-31 10:40:00 2022-08-31 11:30:07 Office Visit Lindy [facility]?MALIKA [facility] OFFICE BUILDING 1..114 350.1.13.10 4.2.7.2.686 [id number] 044 [id number] [facility] 2022-08-30 11:45:00 2022-08-30 13:43:33 Office Visit Misa Ceballos [facility] 1..114 350.1.13.10 4.2.7.2.686 [id number] [facility] 2022-08-30 11:45:00 2022-08-30 11:45:00 Outpatient R MISA CEBALLOS [facility] [id number] [facility] 2022-08-25 00:00:00 2022-08-25 00:00:00 Telephone Lindy [facility] JOHN?MALKIA [facility] MEDICAL OFFICE BUILDING 1.840.114 350.1.13.10 4.2.7.2.686 [id number] 044 [id number] [facility] 2022-08-16 00:00:00 2022-08-16 00:00:00 Telephone Lindy [facility] JOHN?[facility] MEDICAL OFFICE BUILDING 1.84.114 350.1.13.10 4.2.7.2.686 [id number] 044 [id number] [facility] 2022-08-13 10:30:00 2022-08-13 11:59:43 Outpatient R [facility] [id number] [facility] 2022-08-13 10:30:00 2022-08-13 11:59:43 Office Visit Michoacano Wilkes [facility] 1.84.114 350.1.13.10 4.2.7.2.686 [id number] [id number] [facility] 2022-08-11 00:00:00 2022-08-11 00:00:00 Refill Lindy [facility] JOHN?[facility] MEDICAL OFFICE BUILDING 1.84.114 350.1.13.10 4.2.7.2.686 [id number] 044 [id number] [facility] 2022-08-05 00:00:00 2022-08-05 00:00:00 Telephone Lindy [facility] JOHN?[facility] MEDICAL OFFICE BUILDING 1.84.114 350.1.13.10 4.2.7.2.686 [id number] 044 [id number] [facility] 2022-08-03 00:00:00 2022-08-03 00:00:00 Telephone Lindy [facility] JOHN?MALIKA [facility] MED[facility] OFFICE BUILDING 1..114 350.1.13.10 4.2.7.2.686 [id number] 044 [id number] [facility] 2022-08-03 00:00:00 2022-08-03 00:00:00 Orders Only Doctor Unassigned, [place] [facility] 1.114 350.1.13.10 4.2.7.2.686 [id number] [id number] [facility] 2022-07-30 11:20:00 2022-07-30 12:10:00 Outpatient R LINDY [facility] [id number] [facility] 2022-07-30 11:20:00 2022-07-30 12:10:00 Office Visit Lindy [facility] MEDICAL OFFICE BUILDING 1.84114 350.1.13.10 4.2.7.2.686 [id number] 044 [id number] [facility] 2022-07-30 00:00:00 2022-07-30 00:00:00 Refill Erick Larios [facility] MEDICAL OFFICE BUILDING 1.84.114 350.1.13.10 4.2.7.2.686 [id number] [facility] 2022-07-20 14:20:00 2022-07-20 15:53:29 Outpatient R MARYCARMEN ROJAS [facility] [id number] [facility] 2022-07-20 14:20:00 2022-07-20 15:00:00 Office Visit Marycarmen Rojas [facility] NAL BUILDING 1.84114 350.1.13.10 4.2.7.2.686 [id number] 059 [id number] [facility] 2022-07-15 11:53:14 2022-07-15 23:59:00 Outpatient R LINDY [facility] [id number] [facility] 2022-07-15 11:00:00 2022-07-15 13:05:09 Office Visit Lindy [facility] MEDICAL OFFICE BUILDING 1.84.114 350.1.13.10 4.2.7.2.686 [id number] 044 [id number] [facility] 2022-07-14 00:00:00 2022-07-14 00:00:00 Telephone Lindy [facility] MEDICAL OFFICE BUILDING 1.84.114 350.1.13.10 4.2.7.2.686 [id number] 044 [id number] [facility] 2022-07-07 11:00:00 2022-07-07 11:00:00 Outpatient R ERICK LARIOS YU [facility] [id number] [facility] 2022-07-07 00:00:00 2022-07-07 00:00:00 Transition of Care Bridgette Black JEF [facility] 1.84.114 350.1.13.10 4.2.7.2.686 [id number] [facility] 2022-06-26 11:39:00 2022-07-05 17:22:00 Inpatient X BLADIMIR FERRARO [facility] [id number] [facility] 2022-06-26 11:39:00 2022-07-05 17:22:00 Hospital Encounter Ramírez Culp, Patel Jarvis, Bladimir Fajardo [facility] 1.84.114 350.1.13.10 4.2.7.2.686 [id number] [id number] [facility] 2022-06-08 10:40:00 2022-06-08 11:00:15 [facility]A [facility]ILLY MEDICAL OFFICE BUILDING 1.284.114 350.1.13.10 4.2.7.2.686 [id number] 044 [id number] [facility] 2022-06-08 10:40:00 2022-06-08 11:00:15 Outpatient R L[facility]Y [facility] [id number] [facility] 2022-06-08 00:00:00 2022-06-08 00:00:00 Telephone Lindy [facility] JOHN?MALIKA [facility] MEDICAL OFFICE BUILDING 1.84.114 350.1.13.10 4.2.7.2.686 [id number] 044 [id number] [facility] 2022-06-01 11:45:00 2022-06-01 12:08:31 Outpatient R MISA CEBALLOS [facility] [id number] [facility] 2022-06-01 11:45:00 2022-06-01 12:08:31 Office Visit Misa Ceballos [facility] PRIMARY CARE PAVILLION 1.84.114 350.1.13.10 4.2.7.2.686 [id number] [facility] 2022-05-31 00:00:00 2022-05-31 00:00:00 Telephone Lindy [facility] JOHN?MALIKA [facility] MEDICAL OFFICE BUILDING 1.840.114 350.1.13.10 4.2.7.2.686 [id number] 044 [id number] [facility] 2022-05-24 00:00:00 2022-05-24 00:00:00 Telephone Lindy [facility] JOHN?MALIKA [facility] MEDICAL OFFICE BUILDING 1.84.114 350.1.13.10 4.2.7.2.686 [id number] 044 [id number] [facility] 2022-05-24 00:00:00 2022-05-24 00:00:00 Telephone Lindy [facility] JOHN?MALIKA [facility] MEDICAL OFFICE BUILDING 1..840.114 350.1.13.10 4.2.7.2.686 [id number] 044 [id number] [facility] 2022-05-22 00:00:00 2022-05-22 00:00:00 Refill Lindy [facility] JOHN?[facility] MEDICAL OFFICE BUILDING 1.840.114 350.1.13.10 4.2.7.2.686 [id number] 044 [id number] [facility] 2022-05-20 00:00:00 2022-05-20 00:00:00 Orders Only Doctor Unassigned, [place] [facility] 1.84.114 350.1.13.10 4.2.7.2.686 [id number] [id number] [facility] 2022-05-18 11:00:00 2022-05-18 11:00:00 Outpatient R L[facility]Y [facility] [id number] [facility] 2022-05-14 00:00:00 2022-05-14 00:00:00 Telephone Lindy [facility] JOHN?[facility] MEDICAL OFFICE BUILDING 1.840.114 350.1.13.10 4.2.7.2.686 [id number] 044 [id number] [facility] 2022-05-12 00:00:00 2022-05-12 00:00:00 Patient Outreach Nehal Titus [facility] JOHN?[facility] MEDICAL OFFICE BUILDING 1.840.114 350.1.13.10 4.2.7.2.686 [id number] 044 [id number] [facility] 2022-05-11 00:00:00 2022-05-11 00:00:00 Telephone Marycarmen Rojas [facility] MEDICAL OFFICE BUILDING 1.2840.114 350.1.13.10 4.2.7.2.686 [id number] 059 [id number] [facility] 2022-05-10 13:40:00 2022-05-10 15:15:11 Office Visit Lindy [facility] JOHN?MALIKA REILLY MEDICAL OFFICE BUILDING 1.2840.114 350.1.13.10 4.2.7.2.686 [id number] 044 [id number] [facility] 2022-05-10 11:30:00 2022-05-10 11:45:00 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 Visit 2, Adc Lab HungSushil Sonia L [facility] ALICE BUILDING 1.2840.114 350.1.13.10 4.2.7.2.686 [id number] [facility] 2022-05-10 10:40:00 2022-05-10 11:19:43 Outpatient R MARYCARMEN ROJAS [facility] [id number] [facility] 2022-05-10 10:40:00 2022-05-10 11:19:43 Office Visit Marycarmen Rojas [facility] ALICE BUILDING 1.20.114 350.1.13.10 4.2.7.2.686 [id number] 059 [id number] [facility] 2022-05-10 00:00:00 2022-05-10 00:00:00 Telephone Lindy [facility] JOHN?MALIKA REILLY MEDICAL OFFICE BUILDING 1.20.114 350.1.13.10 4.2.7.2.686 [id number] 044 [id number] [facility] 2022-05-10 00:00:00 2022-05-10 00:00:00 Orders Only Doctor Unassigned, [place] [facility] 1.2840.114 350.1.13.10 4.2.7.2.686 [id number] [facility] 2022-05-07 00:00:00 2022-05-07 00:00:00 Telephone Lindy [facility] JOHN?MALIKA [facility] MEDICAL OFFICE BUILDING 1.20.114 350.1.13.10 4.2.7.2.686 [id number] 044 [id number] [facility] 2022-05-04 11:15:00 2022-05-04 11:15:00 Outpatient R MISA CEBALLOS [facility] [id number] [facility] 2022-05-03 00:00:00 2022-05-03 00:00:00 Orders Only Doctor Unassigned, [place] [facility] 1.20.114 350.1.13.10 4.2.7.2.686 [id number] [id number] [facility] 2022-05-01 00:00:00 2022-05-01 00:00:00 Patient Secure Msg Doctor Unassigned, [place] [facility] 1.2.114 350.1.13.10 4.2.7.2.686 [id number] [facility] 2022-04-29 10:40:00 2022-04-29 11:39:00 Outpatient R L[facility]Y [facility] [id number] [facility] 2022-04-29 10:40:00 2022-04-29 11:39:00 Office Visit Lindy [facility] JOHN?MALIKA [facility] MEDICAL OFFICE BUILDING 1.114 350.1.13.10 4.2.7.2.686 [id number] 044 [id number] [facility] 2022-04-27 00:00:00 2022-04-27 00:00:00 Refill Lindy [facility] JOHN?MALIKA [facility] MEDICAL OFFICE BUILDING 1.2.840.114 350.1.13.10 4.2.7.2.686 [id number] 044 [id number] [facility] 2022-04-23 00:00:00 2022-04-23 00:00:00 Telephone [facility] 1.2.840.114 350.1.13.10 4.2.7.2.686 [id number] 059 [id number] [facility] 2022-04-22 09:43:20 2022-04-22 23:59:00 Outpatient R [facility] [id number] [facility] 2022-04-22 10:15:00 2022-04-22 10:30:00 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, Cameron Early [facility] MEDICAL OFFICE BUILDING 1.840.114 350.1.13.10 4.2.7.2.686 [id number] [facility] 2022-04-22 09:00:00 2022-04-22 09:39:36 Office Visit Lindy [facility] MEDICAL OFFICE BUILDING 1.2840.114 350.1.13.10 4.2.7.2.686 [id number] 044 [id number] [facility] 2022-04-20 00:00:00 2022-04-20 00:00:00 Telephone [facility] MEDICAL OFFICE BUILDING 1.2840.114 350.1.13.10 4.2.7.2.686 [id number] 044 [id number] [facility] 2022-04-14 00:00:00 2022-04-14 00:00:00 Telephone Erick Larios [facility] MEDICAL OFFICE BUILDING 1.2.840.114 350.1.13.10 4.2.7.2.686 [id number] [facility] 2022-04-12 00:00:00 2022-04-12 00:00:00 Brian Gomez [facility] MED[facility] OFF[facility] BUILDING 1.2.840.114 350.1.13.10 4.2.7.2.686 [id number] 044 [id number] [facility] 2022-04-09 00:00:00 2022-04-09 00:00:00 Telephone Marycarmen Rojas [facility] ALICE BUILDING 1.2.840.114 350.1.13.10 4.2.7.2.686 [id number] 059 [id number] [facility] 2022-04-08 00:00:00 2022-04-08 00:00:00 Telephone CrystalMarycarmen [facility] ALICE BUILDING 1.2.840.114 350.1.13.10 4.2.7.2.686 [id number] 059 [id number] [facility] 2022-04-07 13:45:00 2022-04-07 14:00:00 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 Visit 2, Adc Lab Marycarmen Rojas [facility] ALICE BUILDING 1.2.840.114 350.1.13.10 4.2.7.2.686 [id number] [facility] 2022-04-07 11:20:00 2022-04-07 12:19:13 Outpatient R CRYSTAL MARYCARMEN [facility] [id number] [facility] 2022-04-07 11:20:00 2022-04-07 12:19:13 Office Visit CrystalMarycarmen [facility] 1.2.840.114 350.1.13.10 4.2.7.2.686 [id number] 059 [id number] [facility] 2022-04-07 00:00:00 2022-04-07 00:00:00 Orders Only Doctor Unassigned, [place] [facility] 1.2.84.114 350.1.13.10 4.2.7.2.686 [id number] [facility] 2022-04-07 00:00:00 2022-04-07 00:00:00 Patient Secure Msg Doctor Unassigned, [place] [facility] 1.2840.114 350.1.13.10 4.2.7.2.686 [id number] [facility] 2022-03-29 13:30:00 2022-03-29 14:49:53 [facility] [id number] 2022-03-29 13:30:00 2022-03-29 14:49:53 Office Visit Estee [facility] MEDICAL OFFICE BUILDING 1..840.114 350.1.13.10 4.2.7.2.686 [id number] [facility] 2022-03-29 12:15:00 2022-03-29 12:30:00 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, [facility] MEDICAL OFFICE BUILDING 1..840.114 350.1.13.10 4.2.7.2.686 [id number] [facility] 2022-03-25 11:00:00 2022-03-25 12:02:29 Outpatient R [facility]Y [facility] [id number] [facility] 2022-03-25 11:00:00 2022-03-25 12:02:29 [facility] MEDICAL OFFICE BUILDING 1..840.114 350.1.13.10 4.2.7.2.686 [id number] 044 [id number] [facility] 2022-03-25 11:00:00 2022-03-25 11:00:00 Outpatient R [facility] [id number] [facility] 2022-03-25 00:00:00 2022-03-25 00:00:00 Refquincy [facility]MALIKA [facility] MEDICAL OFFICE BUILDING 1.284.114 350.1.13.10 4.2.7.2.686 [id number] 044 [id number] [facility] 2022-03-24 00:00:00 2022-03-24 00:00:00 Orders Only Doctor Unassigned, [place] [facility] 1.840.114 350.1.13.10 4.2.7.2.686 [id number] [id number] [facility] 2022-03-23 00:00:00 2022-03-23 00:00:00 Irina [facility] MEDICAL OFFICE BUILDING 1.84.114 350.1.13.10 4.2.7.2.686 [id number] 044 [id number] [facility] 2022-03-23 00:00:00 2022-03-23 00:00:00 Irina Israel [facility] MEDICAL OFFICE BUILDING 1.84.114 350.1.13.10 4.2.7.2.686 [id number] 044 [id number] [facility] 2022-03-16 10:40:00 2022-03-16 11:45:06 Outpatient XENIA BURKS [facility] [id number] [facility] 2022-03-16 10:40:00 2022-03-16 11:45:06 Office Visit Xenia Lomeli BUILDING 1.284.114 350.1.13.10 4.2.7.2.686 [id number] [facility] 2022-03-16 10:40:00 2022-03-16 10:40:00 Outpatient XENIA BURKS [facility] [id number] [facility] 2022-03-16 00:00:00 2022-03-16 00:00:00 Orders Only Doctor Unassigned, [place] [facility] 1.2.840.114 350.1.13.10 4.2.7.2.686 [id number] [id number] [facility] 2022-03-15 00:00:00 2022-03-15 00:00:00 Telephone Lindy [facility] JOHN?[facility] MEDICAL OFFICE BUILDING 1..840.114 350.1.13.10 4.2.7.2.686 [id number] 044 [id number] [facility] 2022-02-25 08:00:00 2022-02-25 09:13:51 Office Visit Lindy [facility] MEDICAL OFFICE BUILDING 1..840.114 350.1.13.10 4.2.7.2.686 [id number] 044 [id number] [facility] 2022-02-25 08:00:00 2022-02-25 09:13:51 [facility] [id number] 2022-02-25 00:00:00 2022-02-25 00:00:00 Orders Only Doctor Unassigned, [place] [facility] 1.840.114 350.1.13.10 4.2.7.2.686 [id number] [facility] 2022-02-24 00:00:00 2022-02-24 00:00:00 Abstract [facility] MEDICAL OFFICE BUILDING 1.2.840.114 350.1.13.10 4.2.7.2.686 [id number] 044 [id number] [facility] 2022-02-22 00:00:00 2022-02-22 00:00:00 Transition of Care Bridgette BlackY [place] 1.2.840.114 350.1.13.10 4.2.7.2.686 [id number] [facility] 2022-02-05 19:22:00 2022-02-20 12:17:00 Inpatient X RONAN [facility] [id number] [facility] 2022-02-05 19:22:00 2022-02-20 12:17:00 Hospital Encounter Jovany Bronson, Jason Alvarenga, [facility] 1.2840.114 350.1.13.10 4.2.7.2.686 [id number] [facility] 2022-02-05 00:00:00 2022-02-05 00:00:00 Telephone Lindy [facility] MEDICAL OFFICE BUILDING 1.2.840.114 350.1.13.10 4.2.7.2.686 [id number] 044 [id number] [facility] 2022-02-03 00:00:00 2022-02-03 00:00:00 Telephone [facility] MEDICAL OFFICE BUILDING 1.2.840.114 350.1.13.10 4.2.7.2.686 [id number] 044 [id number] [facility] 2022-02-01 13:00:00 2022-02-01 14:09:10 Office Visit Lindy [facility] MEDICAL OFFICE BUILDING 1.2.840.114 350.1.13.10 4.2.7.2.686 [id number] 044 [id number] [facility] 2022-02-01 13:00:00 2022-02-01 14:09:10 Outpatient R [facility] [id number] [facility] 2022-02-01 13:00:00 2022-02-01 13:00:00 Outpatient R [facility] [id number] [facility] 2022-02-01 13:00:00 2022-02-01 13:00:00 Outpatient R [facility] [id number] [facility] 2022-02-01 13:00:00 2022-02-01 13:00:00 Outpatient R LINDY [facility] [id number] [facility] 2022-02-01 00:00:00 2022-02-01 00:00:00 Abstract Lindy [facility] JOHN?[facility] MEDICAL OFFICE BUILDING 1.2.840.114 350.1.13.10 4.2.7.2.686 [id number] [facility] 2022-02-01 00:00:00 2022-02-01 00:00:00 Refill Lindy [facility] JOHN?[facility] MEDICAL OFFICE BUILDING 1.2.840.114 350.1.13.10 4.2.7.2.686 [id number] [facility] 2022-02-01 00:00:00 2022-02-01 00:00:00 [facility] MED[facility] OFFICE BUILDING 1.2.840.114 350.1.13.10 4.2.7.2.686 [id number] [facility] 2022-01-29 10:00:00 2022-01-29 11:30:13 Outpatient R LES [facility] [id number] [facility] 2022-01-29 10:00:00 2022-01-29 11:30:13 Office Visit Asael [facility] JOHN?MALIKA [facility] MEDICAL OFFICE BUILDING 1.2.840.114 350.1.13.10 4.2.7.2.686 [id number] [facility] 2022-01-29 00:00:00 2022-01-29 00:00:00 Abstract [facility] JOHN?MALIKA [facility] 1..114 350.1.13.10 4.2.7.2.686 [id number] [facility] 2022-01-29 00:00:00 2022-01-29 00:00:00 Refill Asael [facility]?MALIKA [facility] MEDICAL OFFICE BUILDING 1..114 350.1.13.10 4.2.7.2.686 [id number] [id number] [facility] 2022-01-25 00:00:00 2022-01-25 00:00:00 Orders Only Doctor Unassigned, [place] [facility] 1.114 350.1.13.10 4.2.7.2.686 [id number] [facility] 2022-01-21 00:00:00 2022-01-21 00:00:00 Telephone [place] [facility] [facility] 1.114 350.1.13.10 4.2.7.2.686 [id number] [facility] 2022-01-11 11:15:00 2022-01-11 11:15:00 Outpatient CONSTANCE THOMPSON [facility] [id number] [facility] 2022-01-05 13:45:00 2022-01-05 14:25:22 Outpatient PHILIPPE LYNCH [facility] [id number] [facility] 2022-01-05 13:45:00 2022-01-05 14:25:22 Ancillary Visit Pavithra Rachel Craig L [facility] 1..114 350.1.13.10 4.2.7.2.686 [id number] [facility] 2021-12-24 13:45:00 2021-12-24 14:45:00 Ancillary Visit Pavithra Rachel Craig L [facility] 1.2.840.114 350.1.13.10 4.2.7.2.686 [id number] [facility] 2021-12-24 13:45:00 2021-12-24 13:45:00 Outpatient R PHILIPPE LARSEN [facility] [id number] [facility] 2021-12-24 10:08:03 2021-12-24 10:46:00 Outpatient R GARY MCKAY [facility] [id number] [facility] 2021-12-24 00:00:00 2021-12-24 00:00:00 Outpatient R TAHIR MCKAYRIQUE [facility] [id number] [facility] 2021-12-24 00:00:00 2021-12-24 00:00:00 Telephone Constance Stone [facility] 1..840.114 350.1.13.10 4.2.7.2.686 [id number] [facility] 2021-12-22 13:45:00 2021-12-22 14:45:00 Ancillary Visit Pavithra Rachel Craig L [facility] 1..840.114 350.1.13.10 4.2.7.2.686 [id number] [facility] 2021-12-17 14:00:00 2021-12-17 15:16:30 Office Visit Gary Mckay [facility] 1.2.840.114 350.1.13.10 4.2.7.2.686 [id number] [facility] 2021-12-17 14:00:00 2021-12-17 15:16:30 Outpatient R GARY MCKAY [facility] [id number] [facility] 2021-12-17 14:00:00 2021-12-17 14:00:00 Outpatient GARY SINGH [facility] [id number] [facility] 2021-12-17 00:00:00 2021-12-17 00:00:00 Telephone Romanyao Srinihollie [facility] 1..840.114 350.1.13.10 4.2.7.2.686 [id number] [facility] 2021-12-16 13:45:00 2021-12-16 14:45:00 Ancillary Visit Paivthra Rachel Craig L [facility] 1..840.114 350.1.13.10 4.2.7.2.686 [id number] [facility] 2021-12-16 13:45:00 2021-12-16 13:45:00 Outpatient R PHILIPPE LARSEN [facility] [id number] [facility] 2021-12-14 10:45:00 2021-12-14 10:45:00 Outpatient R CONSTANCE STONE [facility] [id number] [facility] 2021-12-14 10:45:00 2021-12-14 10:45:00 Outpatient R CONSTANCE STONE [facility] [id number] [facility] 2021-12-14 10:45:00 2021-12-14 10:45:00 Outpatient R CONSTANCE STONE [facility] [id number] [facility] 2021-12-10 13:00:00 2021-12-10 14:00:00 Ancillary Visit Pavithra Rachel Craig L [facility] 1.2.840.114 350.1.13.10 4.2.7.2.686 [id number] [facility] 2021-12-10 13:00:00 2021-12-10 13:00:00 Outpatient Diogenes PHILIPPE LARSEN [facility] [id number] [facility] 2021-12-10 01:16:00 2021-12-10 01:16:00 Outpatient JOSH [facility] [id number] [facility]ita [facility] 2021-12-10 00:00:00 2021-12-10 00:00:00 Armand Ball, DO: [address], [address], [place] [address] , Ph. [phone] [facility] - Replaced By [facility] - [facility], [address]. BALL [phone] Critical access hospitalita [facility] 2021-12-10 00:00:00 2021-12-10 00:00:00 Outpatient Armand Ball [facility] [id number] 2021-12-08 13:00:00 2021-12-08 15:35:22 Outpatient Diogenes PHILIPPE LARSEN [facility] [id number] [facility] 2021-12-08 13:00:00 2021-12-08 15:35:22 Ancillary Visit Pavithra Rachel Craig L [facility] 1.2.840.114 350.1.13.10 4.2.7.2.686 [id number] [facility] 2021-12-04 15:15:00 2021-12-04 16:23:35 Ancillary Visit Pavithra Rachel Craig [facility] 1.2.840.114 350.1.13.10 4.2.7.2.686 [id number] [facility] 2021-12-02 09:30:00 2021-12-02 10:30:00 Ancillary Visit Pavithra Rachel Craig L [facility] 1.2.840.114 350.1.13.10 4.2.7.2.686 [id number] [facility] 2021-11-24 14:30:00 2021-11-24 15:35:05 Ancillary Visit Pavithra Rachel Craig L [facility] 1.2.840.114 350.1.13.10 4.2.7.2.686 [id number] [facility] 2021-11-20 14:30:00 2021-11-20 15:30:00 Ancillary Visit Pavithra Rachel Craig L [facility] 1.2.840.114 350.1.13.10 4.2.7.2.686 [id number] [facility] 2021-11-18 13:45:00 2021-11-18 14:45:00 Ancillary Visit Pavithra Rachel Craig L [facility] 1.2.840.114 350.1.13.10 4.2.7.2.686 [id number] [facility] 2021-11-13 10:15:00 2021-11-13 11:00:00 Ancillary Visit Vero Rachelroxanne LarsenPhilippe [facility] 1.2.840.114 350.1.13.10 4.2.7.2.686 [id number] [facility] 2021-11-10 09:30:00 2021-11-10 10:15:00 Ancillary Visit Wilson Pavithra LarsenPhilippe [facility] 1.2.840.114 350.1.13.10 4.2.7.2.686 [id number] [facility] 2021-11-06 15:15:00 2021-11-06 16:00:00 Ancillary Visit Pavithra Rachel Philippe Larsen [facility] 1.20.114 350.1.13.10 4.2.7.2.686 [id number] [facility] 2021-11-04 11:00:00 2021-11-04 14:47:26 Outpatient R PHILIPPE LARSEN [facility] [id number] [facility] 2021-11-04 11:00:00 2021-11-04 14:47:26 Ancillary Visit Pavithra Rachel Philippe Larsen [facility] 1.20.114 350.1.13.10 4.2.7.2.686 [id number] [facility] 2021-10-28 14:30:00 2021-10-28 15:30:00 Ancillary Visit Pavithra Rachel Philippe Larsen [facility] 1.20.114 350.1.13.10 4.2.7.2.686 [id number] [facility] 2021-10-27 00:00:00 2021-10-27 00:00:00 Transition of Care Bridgette Black 1.2840.114 350.1.13.10 4.2.7.2.686 [id number] [facility] 2021-10-26 11:47:00 2021-10-26 11:47:00 Outpatient NASIRON_R [facility] [id number] 425 [facility] 2021-10-26 00:00:00 2021-10-26 00:00:00 Patient Secure Msg Doctor Unassigned, [place] [facility] 1.20.114 350.1.13.10 4.2.7.2.686 [id number] [facility] 2021-10-22 11:29:00 2021-10-25 12:30:00 Inpatient X HUGH APOLLO [facility] [id number] [facility] 2021-10-22 11:29:00 2021-10-25 12:30:00 Hospital Encounter Randi Richardson Apollo Rust [facility] 1..114 350.1.13.10 4.2.7.2.686 [id number] [facility] 2021-10-07 13:00:00 2021-10-07 13:00:00 Outpatient PHILIPPE LYNCH [facility] [id number] [facility] 2021-10-07 13:00:00 2021-10-07 13:00:00 Outpatient PHILIPPE LYNCH [facility] [id number] [facility] 2021-09-30 10:00:00 2021-09-30 10:30:[address] [facility] 1..114 350.1.13.10 4.2.7.2.686 [id number] [facility] 2021-09-30 10:00:00 2021-09-30 10:00:00 Outpatient CLAY SALGUERO [facility] [id number] [facility] 2021-09-30 00:00:00 2021-09-30 00:00:[address] [facility] 1..114 350.1.13.10 4.2.7.2.686 [id number] [facility] 2021-09-30 00:00:00 2021-09-30 00:00:00 Orders Only Doctor Unassigned, [place] [facility] 1..114 350.1.13.10 4.2.7.2.686 [id number] [facility] 2021-09-29 10:15:00 2021-09-29 11:38:54 Outpatient PHILIPPE LYNCH [facility] [id number] [facility] 2021-09-16 13:45:00 2021-09-16 16:59:28 Ancillary Visit Arlet Schwartz Craig [facility] 1.2.840.114 350.1.13.10 4.2.7.2.686 [id number] [facility] 2021-09-16 13:45:00 2021-09-16 16:59:28 Outpatient PHILIPPE LYNCH [facility] [id number] [facility] 2021-09-16 13:45:00 2021-09-16 13:45:00 Outpatient PHILIPPE LYNCH [facility] [id number] [facility] 2021-09-16 00:00:00 2021-09-16 00:00:00 Case Management Arlet Schwartz [facility] 1.2.840.114 350.1.13.10 4.2.7.2.686 [id number] [facility] 2021-09-01 15:45:00 2021-09-01 16:00:00 Office Visit Constance Stone [facility] 1.2.840.114 350.1.13.10 4.2.7.2.686 [id number] [facility] 2021-09-01 15:45:00 2021-09-01 16:00:00 Office Visit Constance Stone [facility] 1.2840.114 350.1.13.10 4.2.7.2.686 [id number] [facility] 2021-09-01 15:45:00 2021-09-01 15:45:00 Outpatient R CONSTANCE STONE [facility] [id number] [facility] 2021-08-31 12:23:00 2021-08-31 12:23:00 Outpatient QUINN_R [facility] [id number] [facility] 2021-08-31 00:00:00 2021-08-31 00:00:00 Armand Ball, DO: [address], [facility] G, [place] [address] , Ph. [phone] [facility] - Replaced By [facility] - [facility], DR. BALL [id number] [facility] 2021-08-31 00:00:00 2021-08-31 00:00:00 Outpatient Armand Ball [facility] [id number] 2021-08-18 23:55:00 2021-08-29 11:50:00 Inpatient 3 Foresttootie Manish ENCPL [facility] [id number] [facility] Rehabil itation [place] 2021-08-19 00:00:00 2021-08-19 00:00:00 Transition of Care Bridgette Black 1..840.114 350.1.13.10 4.2.7.2.686 [id number] [facility] 2021-08-17 13:55:00 2021-08-18 22:30:00 Outpatient MONIQUE ROCK [facility] [id number] [facility] 2021-08-17 13:55:00 2021-08-18 22:30:00 Emergency Nj Lopez Erin Leigh [facility] ..840.114 350.1.13.10 4.2.7.2.686 [id number] [facility] 2021-08-17 13:55:00 2021-08-18 22:30:00 Outpatient MONIQUE ROCK [facility] [id number] [facility] 2021-08-11 10:00:00 2021-08-11 10:20:00 Office Visit Xenia Lomeli 1.2.840.114 350.1.13.10 4.2.7.2.686 [id number] [facility] 2021-08-11 10:00:00 2021-08-11 10:00:00 Outpatient Diogenes LOMELI [facility] [id number] [facility] 2021-08-11 10:00:00 2021-08-11 10:00:00 Outpatient Diogenes LOMELI [facility] [id number] [facility] 2021-08-04 00:00:00 2021-08-04 00:00:00 Orders Only Doctor Unassigned, [place] [facility] 1.2.840.114 350.1.13.10 4.2.7.2.686 [id number] [facility] 2021-07-30 12:23:00 2021-07-30 12:23:00 Outpatient JOSH [facility] [id number] [facility] 2021-07-30 00:00:00 2021-07-30 00:00:00 Armand Ball, DO: [address], [facility], [place] [address] , Ph. [facility] - Replaced By [facility] - [facility], DR. ABLL [phone] [facility] Hospita l Clinics 2021-07-30 00:00:00 2021-07-30 00:00:00 Outpatient Armand Ball [facility] [id number] 2021-07-27 00:00:00 2021-07-27 00:00:00 Telephone Natalio Vigil [facility] 1.2840.114 350.1.13.10 4.2.7.2.686 [id number] [facility] 2021-07-23 00:00:00 2021-07-23 00:00:00 Transition of Care Bridgette Black 1.840.114 350.1.13.10 4.2.7.2.686 [id number] [facility] 2021-07-21 10:30:00 2021-07-21 10:30:00 Outpatient R MISA CEBALLOS [facility] [id number] [facility] 2021-07-21 00:00:00 2021-07-21 00:00:00 Telephone Clay Case [facility] 1.840.114 350.1.13.10 4.2.7.2.686 [id number] [facility] 2021-07-14 12:36:00 2021-07-20 14:15:00 Inpatient X NATALIO VIGIL [facility] [id number] [facility] 2021-07-14 12:36:00 2021-07-20 14:15:00 Hospital Encounter See Fish Mukaila Cintron, Nitza JENNIE [facility] 1.840.114 350.1.13.10 4.2.7.2.686 [id number] [facility] 2021-06-25 11:32:00 2021-06-25 11:32:00 Outpatient ERICKSON_R [facility] [id number] [facility] 2021-06-04 03:56:00 2021-06-04 03:56:00 Outpatient ERICKSON_R [facility] [id number] [facility] 2021-06-01 10:15:00 2021-06-01 10:15:00 Outpatient ASYA FAULKNER [facility] [id number] [facility] 2021-06-01 10:15:00 2021-06-01 10:15:00 Outpatient ASYA FAULKNER [facility] [id number] [facility] 2021-05-26 15:30:00 2021-05-26 15:30:00 Outpatient R BERTHA CONSTANCE [facility] [id number] [facility] 2021-05-26 15:07:34 2021-05-26 15:22:34 Office Visit BerthaDalia yefer [facility] 1..114 350.1.13.10 4.2.7.2.686 [id number] [facility] 2021-05-26 11:22:00 2021-05-26 11:22:00 Outpatient QUINN_Diogenes [facility] [id number] [facility] 2021-05-26 00:00:00 2021-05-26 00:00:00 Telephone Xenia Lomeli BUILDING 1.840.114 350.1.13.10 4.2.7.2.686 [id number] [facility] 2021-05-26 00:00:00 2021-05-26 00:00:00 Orders Only Doctor Unassigned, [place] [facility] 1.0.114 350.1.13.10 4.2.7.2.686 [id number] [facility] 2021-05-21 15:00:00 2021-05-21 16:29:05 Office Visit Xenia Lomeli BUILDING 1.2840.114 350.1.13.10 4.2.7.2.686 [id number] [facility] 2021-05-21 15:00:00 2021-05-21 16:29:05 Outpatient INGE BURKSJO [facility] [id number] [facility] 2021-05-21 15:00:00 2021-05-21 15:00:00 Outpatient XENIA BURKS [facility] [id number] [facility] 2021-05-19 13:55:32 2021-05-19 14:36:21 Office Visit Misa Ceballos [facility]IMARY [facility] IZABELA 1.2.840.114 350.1.13.10 4.2.7.2.686 [id number] [facility] 2021-05-19 13:55:00 2021-05-19 14:36:21 Outpatient MISA JARAMILLO [facility] [id number] [facility] 2021-05-19 13:55:00 2021-05-19 14:36:21 Outpatient R MISA CEBALLOS [facility] [id number] [facility] 2021-05-18 02:16:00 2021-05-18 02:16:00 Outpatient JOSH [facility] [id number] [facility] Hospita l Clinics 2021-05-18 00:00:00 2021-05-18 00:00:00 Outpatient Armand Ball [facility] [id number] 2021-05-18 00:00:00 2021-05-18 00:00:00 Armand Ball, DO: [address], [place] [address] , Ph. [facility] - Replaced By [facility], [address] B[place] [id number] [facility]ita [facility] Clinics 2021-05-15 10:45:00 2021-05-15 10:45:00 Outpatient MISA JARAMILLO [facility] [id number] [facility] 2021-05-12 11:40:00 2021-05-12 11:40:00 Outpatient R XENIA LOMELI [facility] [id number] [facility] 2021-05-11 10:00:00 2021-05-11 10:00:00 Outpatient R [facility] [id number] [facility] 2021-04-20 15:07:35 2021-04-20 16:31:53 Office Visit Gary Mckay [facility] .840.114 350.1.13.10 4.2.7.2.686 [id number] [facility] 2021-04-20 15:30:00 2021-04-20 15:30:00 Outpatient R TAHIR MCKAYRIQUE [facility] [id number] [facility] 2021-04-13 12:29:00 2021-04-13 12:29:00 Outpatient JOSH [facility] [id number] [facility] 2021-04-13 00:00:00 2021-04-13 00:00:00 Outpatient Armand Ball [facility] [id number] 2021-04-13 00:00:00 2021-04-13 00:00:00 Armand Ball, DO: [address] , [place] [address] , Ph. [phone] [place] [address] - Replaced By [facility] - [facility], [address] BALL [id number] [facility] 2021-03-24 00:00:00 2021-03-24 00:00:00 Telephone Constance Stone [facility] ..840.114 350.1.13.10 4.2.7.2.686 [id number] [facility] 2021-03-03 13:57:44 2021-03-03 23:59:00 Hospital Encounter Gary Mckay [facility] 1..840.114 350.1.13.10 4.2.7.2.686 [id number] [facility] 2021-03-03 00:00:00 2021-03-03 00:00:00 Outpatient R GARY MCKAY [facility] [id number] [facility] 2021-02-26 15:00:00 2021-02-26 15:00:00 Outpatient R [facility] [id number] [facility] 2021-02-18 01:53:00 2021-02-18 01:53:00 Outpatient QUINN_R [facility] [id number] [facility] 2021-02-17 12:16:00 2021-02-17 12:16:00 Outpatient QUINN_Diogenes [facility] [id number] [facility] 2021-02-17 00:00:00 2021-02-17 00:00:00 Outpatient Armand Ball [facility] [id number] 2021-02-17 00:00:00 2021-02-17 00:00:00 Armand Ball, DO: [address], [facility], [place] [address] , Ph. [facility], [address] [facility] [id number] [facility] 2021-02-16 11:45:00 2021-02-16 11:45:00 Outpatient CONSTANCE THOMPSON [facility] [id number] [facility] 2021-02-16 00:00:00 2021-02-16 00:00:00 Orders Only Doctor Unassigned, [place] [facility] 1..840.114 350.1.13.10 4.2.7.2.686 [id number] [facility] 2021-02-12 13:06:20 2021-02-12 15:02:25 Ancillary Visit Pavithra Rachel Craig [facility] 1.2.840.114 350.1.13.10 4.2.7.2.686 [id number] [facility] 2021-01-13 12:56:00 2021-01-13 12:56:00 Outpatient JOSH [facility] [id number] [facility] 2021-01-13 00:00:00 2021-01-13 00:00:00 Armand Ball, DO: [address], [facility], [place] [address] , Ph. [phone] [facility] - Replaced By [facility], [address] [place] [id number] [facility] 2021-01-13 00:00:00 2021-01-13 00:00:00 Outpatient Armand Ball [facility] [id number] 2021-01-05 11:30:00 2021-01-05 11:30:00 Outpatient Diogenes [facility] [id number] [facility] 2021-01-01 13:00:00 2021-01-01 13:00:00 Outpatient PHILIPPE LYNCH [facility] [id number] [facility] 2020-12-02 08:00:00 2020-12-02 08:00:00 Outpatient PHILIPPE LYNCH [facility] [id number] [facility] 2020-11-27 14:40:00 2020-11-27 14:40:00 Outpatient CONSTANCE THOMPSON [facility] [id number] [facility] 2020-11-27 02:06:00 2020-11-27 02:06:00 Outpatient QUINN_R [facility] [id number] [facility] 2020-11-27 00:00:00 2020-11-27 00:00:00 Armand Ball, DO: [address] [place] [address] , Ph. [facility], [address] BALL [id number] [facility] 2020-11-27 00:00:00 2020-11-27 00:00:00 Outpatient Armand Ball [facility] [id number] 2020-11-25 10:30:00 2020-11-25 10:30:00 Outpatient CONSTANCE THOMPSON [facility] [id number] [facility] 2020-11-11 11:40:00 2020-11-11 11:40:00 Outpatient R ERLINDAXENIA [facility] [id number] [facility] 2020-11-10 10:00:00 2020-11-10 10:00:00 Outpatient R CHUCHO RÍOS [facility] [id number] [facility] 2020-11-04 09:00:00 2020-11-04 09:00:00 Outpatient CONSTANCE THOMPSON [facility] [id number] [facility] 2020-10-30 11:59:00 2020-10-30 11:59:00 Outpatient ERCATALINO_R [facility] [id number] [facility] 2020-10-30 00:00:00 2020-10-30 00:00:00 Armand Ball, DO: [address] [place] [address] , Ph. [facility], DR. BALL [id number] [facility] 2020-10-30 00:00:00 2020-10-30 00:00:00 Outpatient Armand Ball [facility] [id number] 2020-10-09 03:22:00 2020-10-09 03:22:00 Outpatient ERCATALINO_R [facility] [id number] [facility] 2020-10-09 00:00:00 2020-10-09 00:00:00 Armand Ball, DO: [address] , [place] [address] , Ph. [phone] [place] [address], DR. BALL [id number] [facility] 2020-10-09 00:00:00 2020-10-09 00:00:00 Outpatient Armand Ball [facility] [id number] 2020-10-08 10:55:05 2020-10-08 11:25:05 Office Visit Clay Case [facility] [id number] [facility] 2020-10-08 11:00:00 2020-10-08 11:00:00 Outpatient [facility] [id number] [facility] 2020-09-09 12:52:00 2020-09-09 12:52:00 Outpatient QUINN_R [facility] [id number] [facility] 2020-09-09 00:00:00 2020-09-09 00:00:00 Outpatient Armand Ball [facility] [id number] 2020-09-09 00:00:00 2020-09-09 00:00:00 Armand Ball, DO: [address] [place] [address] , Ph. [phone] [facility], DR[facility] BALL [id number] [facility] 2020-08-25 00:00:00 2020-08-25 00:00:00 Telephone Xenia Lom[facility] 1.2.840.114 350.1.13.10 4.2.7.2.686 [id number] [facility] 2020-08-12 11:41:00 2020-08-12 11:41:00 Outpatient ERICKSON_R [facility] [id number] [facility] 2020-08-07 12:43:00 2020-08-07 12:43:00 Outpatient ERICKSON_R [facility] [id number] [facility] 2020-08-07 00:00:00 2020-08-07 00:00:00 Outpatient Armand Ball [facility] [id number] 2020-08-07 00:00:00 2020-08-07 00:00:00 Armand Ball, DO: [address] [place] [address] , Ph. [phone] [facility], [address] BALL [id number] [facility] 2020-08-04 10:49:00 2020-08-04 10:49:00 Outpatient ERICKSON_R [facility] [id number] [facility] 2020-07-15 11:40:00 2020-07-15 11:40:00 Outpatient R XENIA LOMELI [facility] [id number] [facility] 2020-07-15 08:17:25 2020-07-15 08:37:25 Telemedici ne Visit Xenia Lomeli [facility] 1..114 350.1.13.10 4.2.7.2.686 [id number] [facility] 2020-07-14 02:25:00 2020-07-14 02:25:00 Outpatient ERICKSON_R [facility] [id number] [facility] 2020-07-10 04:06:00 2020-07-10 04:06:00 Outpatient ERICKSON_R [facility] [id number] [facility] [facility] 2020-07-10 00:00:00 2020-07-10 00:00:00 Orders Only Doctor Unassigned, [place] [facility] 1.114 350.1.13.10 4.2.7.2.686 [id number] [facility] 2020-07-10 00:00:00 2020-07-10 00:00:00 Outpatient Armand Ball [facility] [id number] 2020-07-10 00:00:00 2020-07-10 00:00:00 Armand Ball, DO: [address], [place] [address] , Ph. [facility] - Replaced By [facility], [address] BALL [phone] [facility] 2020-07-09 11:05:04 2020-07-09 12:29:03 Office Visit Clay Case [facility] ..114 350.1.13.10 4.2.7.2.686 [id number] [facility] 2020-07-09 11:30:00 2020-07-09 11:30:00 Outpatient R CLAY CASE [facility] [id number] [facility] 2020-07-01 12:34:00 2020-07-01 12:34:00 Outpatient ERICKSON_R [facility] [id number] [facility] 2020-06-19 00:00:00 2020-06-19 00:00:00 Telephone [facility] 1.2840.114 350.1.13.10 4.2.7.2.686 [id number] 071 [id number] [facility] 2020-06-19 00:00:00 2020-06-19 00:00:00 Telephone [facility] 1.2840.114 350.1.13.10 4.2.7.2.686 [id number] 071 [id number] [facility] 2020-04-25 00:00:00 2020-04-25 00:00:00 Telephone Xenia Lomeli BUILD[facility] 1.2840.114 350.1.13.10 4.2.7.2.686 [id number] [id number] [facility] 2020-04-18 08:33:49 2020-04-18 10:11:45 Telemedici ne Visit Constance Stone [facility] 1.2.840.114 350.1.13.10 4.2.7.2.686 [id number] [facility] 2020-04-18 08:30:00 2020-04-18 08:30:00 Outpatient R CONSTANCE STONE [facility] [id number] [facility] 2020-04-02 13:04:22 2020-04-02 14:11:31 [facility] 1.2840.114 350.1.13.10 4.2.7.2.686 [id number] [id number] [facility] 2020-04-02 13:00:00 2020-04-02 13:00:00 Outpatient R CLAY CASE [facility] [id number] [facility] 2020-03-28 13:26:47 2020-03-28 13:46:47 Telemedici ne Visit Xenia Lomeli [facility] 1.2840.114 350.1.13.10 4.2.7.2.686 [id number] [facility] 2020-03-28 09:00:00 2020-03-28 09:00:00 Outpatient R XENIA LOMELI [facility] [id number] [facility] 2020-03-21 08:00:00 2020-03-21 08:00:00 Outpatient R CONSTANCE STONE [facility] [id number] [facility] 2020-03-21 00:00:00 2020-03-21 00:00:00 Transition of Care Jacquelyn Delgado 1.2840.114 350.1.13.10 4.2.7.2.686 [id number] [facility] 2020-03-21 00:00:00 2020-03-21 00:00:00 Refill Bartolome Haley [facility] 1.2840.114 350.1.13.10 4.2.7.2.686 [id number] [facility] 2020-03-18 11:53:00 2020-03-20 17:30:00 Hospital Encounter Gavin Quesada Vinod P [facility] 1.2840.114 350.1.13.10 4.2.7.2.686 [id number] [facility] 2020-03-20 08:00:00 2020-03-20 08:00:00 Outpatient R DEL REAL JR, [facility] [id number] [facility] 2020-03-14 18:40:00 2020-03-14 22:52:00 Emergency See [facility] 1.2.840.114 350.1.13.10 4.2.7.2.686 [id number] [facility] 2020-03-14 00:00:00 2020-03-14 00:00:00 Telephone Constance Stone [facility] nal Building 1.2.840.114 350.1.13.10 4.2.7.2.686 [id number] [facility] 2020-02-14 08:30:29 2020-02-29 09:41:43 Office Visit Constance Stone [facility] Building 1.2.840.114 350.1.13.10 4.2.7.2.686 [id number] [facility] 2020-02-15 12:52:26 2020-02-18 11:43:28 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 Visit [facility] [place] Xenia Lomeli [facility] 1.2.840.114 350.1.13.10 4.2.7.2.686 [id number] [facility] 2020-02-15 11:01:17 2020-02-15 12:42:54 Office Visit Xenia Lomeli [facility] 1.2.840.114 350.1.13.10 4.2.7.2.686 [id number] [facility] 2020-02-15 11:00:00 2020-02-15 11:00:00 Outpatient XENIA BURKS [facility] [id number] [facility] 2020-02-15 00:00:00 2020-02-15 00:00:00 Orders Only Doctor Unassigned, [place] [facility] 1.2.840.114 350.1.13.10 4.2.7.2.686 [id number] [facility] 2020-02-14 10:45:54 2020-02-14 11:00:54 Laboratory Only Only, Adc Test Yesika Stonenifer [facility] 1.2.840.114 350.1.13.10 4.2.7.2.686 [id number] [facility] 2020-02-14 08:15:00 2020-02-14 08:15:00 Outpatient R CONSTANCE STONE [facility] [id number] [facility] 2020-02-13 16:29:00 2020-02-13 21:01:00 Emergency Jerolayton Lisa Rachel [facility] 1.2.840.114 350.1.13.10 4.2.7.2.686 [id number] [facility] 2020-02-13 00:00:00 2020-02-13 00:00:00 Orders Only Doctor Unassigned, [place] [facility] 1.2.840.114 350.1.13.10 4.2.7.2.686 [id number] [facility] 2020-02-08 00:00:00 2020-02-08 00:00:00 Nichelle Quinn [facility] 1.2.840.114 350.1.13.10 4.2.7.2.686 [id number] [facility] 2020-02-08 00:00:00 2020-02-08 00:00:00 Telephone Constance Stone [facility] 1.2.840.114 350.1.13.10 4.2.7.2.686 [id number] [facility] 2020-01-18 08:06:02 2020-01-18 08:59:38 Office [facility] 1.2.840.114 350.1.13.10 4.2.7.2.686 [id number] [facility] 2020-01-18 08:15:00 2020-01-18 08:15:00 Outpatient R CONSTANCE STONE [facility] [id number] [facility] 2020-01-11 10:15:00 2020-01-11 10:15:00 Outpatient R CONSTANCE STONE [facility] [id number] [facility] 2020-01-04 08:40:20 2020-01-11 07:46:14 Telemedici ne Visit Constance Stone [facility] 1.2.840.114 350.1.13.10 4.2.7.2.686 [id number] [facility] 2020-01-04 10:00:00 2020-01-04 10:00:00 Outpatient R CONSTANCE STONE [facility] [id number] [facility] 2019-09-27 08:40:46 2019-11-08 16:18:11 Telemedici ne Visit Constance Stone [facility] Building 1.2.840.114 350.1.13.10 4.2.7.2.686 [id number] [facility] 2019-11-02 08:14:39 2019-11-06 09:14:22 Telemedici ne Visit Constance Stone [facility] 1.2.840.114 350.1.13.10 4.2.7.2.686 [id number] [facility] 2019-11-02 10:15:00 2019-11-02 10:15:00 Outpatient R CONSTANCE STONE [facility] [id number] [facility] 2019-09-27 11:00:00 2019-09-27 11:00:00 Outpatient R CONSTANCE STONE [facility] [id number] [facility] 2019-09-18 10:10:43 2019-09-18 11:30:31 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 Visit , [facility] Room 1 - [facility], [facility] 1.2.840.114 350.1.13.10 4.2.7.2.686 [id number] [facility] 2019-09-18 10:11:01 2019-09-18 11:30:06 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 Visit , [facility] Room 1 - [facility] 1.2.840.114 350.1.13.10 4.2.7.2.686 [id number] [facility] 2019-09-18 10:00:00 2019-09-18 10:00:00 Outpatient R [facility] [id number] [facility] 2019-08-31 00:00:00 2019-08-31 00:00:00 Telephone Nichelle Escamilla Seth [facility] 1.2.840.114 350.1.13.10 4.2.7.2.686 [id number] [facility] 2019-08-28 00:00:00 2019-08-28 00:00:00 Telephone Nichelle Escamilla Seth [facility] 1.2.840.114 350.1.13.10 4.2.7.2.686 [id number] [facility] 2019-08-28 00:00:00 2019-08-28 00:00:00 Refill Nichelle Escamilla [facility] 1.2.840.114 350.1.13.10 4.2.7.2.686 [id number] [facility] 2019-08-24 10:27:26 2019-08-24 12:24:08 Office Visit Constance Stone [facility] 1.2.840.114 350.1.13.10 4.2.7.2.686 [id number] [facility] 2019-08-21 00:00:00 2019-08-21 00:00:00 Telephone Nichelle Escamilla [facility] 1.2.840.114 350.1.13.10 4.2.7.2.686 [id number] [facility] 2019-08-21 00:00:00 2019-08-21 00:00:00 Orders Only Doctor Unassigned, [place] [facility] 1.2.840.114 350.1.13.10 4.2.7.2.686 [id number] [id number] [facility] 2019-08-21 00:00:00 2019-08-21 00:00:00 Letter (Out) Nichelle Escamilla [facility] 1.2.840.114 350.1.13.10 4.2.7.2.686 [id number] [facility] 2019-08-18 00:00:00 2019-08-18 00:00:00 Telephone Nichelle Escamilla [facility] 1.2.840.114 350.1.13.10 4.2.7.2.686 [id number] 044 [id number] [facility] 2019-08-16 00:00:00 2019-08-16 00:00:00 Telephone Nichelle Escamilla [facility] 1.2.840.114 350.1.13.10 4.2.7.2.686 [id number] [id number] [facility] 2019-08-13 00:00:00 2019-08-13 00:00:00 Telephone Nichelle Escamilla [facility] 1.840.114 350.1.13.10 4.2.7.2.686 [id number] [facility] 2019-08-11 00:00:00 2019-08-11 00:00:00 Orders Only Doctor Unassigned, [place] [facility] 1.2840.114 350.1.13.10 4.2.7.2.686 [id number] [facility] 2019-07-27 00:00:00 2019-07-27 00:00:00 Refill Jayden Mitchell [facility] 1.2840.114 350.1.13.10 4.2.7.2.686 [id number] [facility] 2019-03-15 00:00:00 2019-03-15 00:00:00 Refill Jayden Mitchell [facility] 1.2840.114 350.1.13.10 4.2.7.2.686 [id number] [facility] 2019-03-15 00:00:00 2019-03-15 00:00:00 Orders Only Doctor Unassigned, [place] [facility] 1.840.114 350.1.13.10 4.2.7.2.686 [id number] [facility] 2019-03-14 00:00:00 2019-03-14 00:00:00 Telephone Nichelle Escamilla [facility] Office [facility] 1.840.114 350.1.13.10 4.2.7.2.686 [id number] 044 [id number] [facility] 2019-02-02 09:26:59 2019-03-02 15:02:45 Office Visit Nichelle Escamilla [facility] 1.2.840.114 350.1.13.10 4.2.7.2.686 [id number] [facility] 2019-02-28 00:00:00 2019-02-28 00:00:00 Telephone Nichelle Escamilla [facility] 1.2.840.114 350.1.13.10 4.2.7.2.686 [id number] [id number] [facility] 2019-02-20 10:56:36 2019-02-20 11:40:54 Office Visit Jayden Mitchell [facility] 1.2.840.114 350.1.13.10 4.2.7.2.686 [id number] [facility] 2019-02-20 00:00:00 2019-02-20 00:00:00 Orders Only Doctor Unassigned, [place] [facility] 1.2.840.114 350.1.13.10 4.2.7.2.686 [id number] [facility] 2019-02-13 00:00:00 2019-02-13 00:00:00 Telephone Nichelle Escamilla [facility] 1.2.840.114 350.1.13.10 4.2.7.2.686 [id number] [id number] [facility] 2019-02-02 10:49:58 2019-02-02 11:04:58 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 Visit 2, Adc Lab Nichelle Escamilla [facility] 1.2.840.114 350.1.13.10 4.2.7.2.686 [id number] [facility] 2019-02-02 00:00:00 2019-02-02 00:00:00 Telephone Nichelle Escamilla [facility] 1.2.840.114 350.1.13.10 4.2.7.2.686 [id number] [facility] 2019-01-31 13:13:24 2019-01-31 23:59:00 Hospital Encounter Dara Golden BUILDING 1.2.840.114 350.1.13.10 4.2.7.2.686 [id number] [facility] 2019-01-29 00:00:00 2019-01-29 00:00:00 Telephone EscamillaNichelle gonzales Seth [facility] 1.2.840.114 350.1.13.10 4.2.7.2.686 [id number] [id number] [facility] 2019-01-26 11:59:24 2019-01-26 13:56:45 Office Visit Nichelle Escamilla [facility] 1.2.840.114 350.1.13.10 4.2.7.2.686 [id number] [facility] 2019-01-24 00:00:00 2019-01-24 00:00:00 Telephone EscamillaNichelle gonzales Seth [facility] 1.2.840.114 350.1.13.10 4.2.7.2.686 [id number] 044 [id number] [facility] 2019-01-22 00:00:00 2019-01-22 00:00:00 Telephone Escamilla Nichelle Seth [facility] 1.2.840.114 350.1.13.10 4.2.7.2.686 [id number] 044 [id number] [facility] 2019-01-16 00:00:00 2019-01-16 00:00:00 Orders Only Doctor Unassigned, [place] [facility] 1.2.840.114 350.1.13.10 4.2.7.2.686 [id number] [facility] 2018-12-28 00:00:00 2018-12-28 00:00:00 Orders Only Doctor Unassigned, [place] [facility] 1.2.840.114 350.1.13.10 4.2.7.2.686 [id number] [id number] [facility] 2018-08-24 00:00:00 2018-08-24 00:00:00 Orders Only Doctor Unassigned, [place] [facility] 1.2.840.114 350.1.13.10 4.2.7.2.686 [id number] [facility] Results Test Description Test Time Test Comments Results Resul t Comments Source PHYSICIAN ORDERS 2024-09-02 4 15:46:03 Ordered by an unspecified provider. [facility] DME/SUPPLY JUSTIFICATION 2024-08-04 8 16:08:32 Ordered by an unspecified provider. [facility] DME/SUPPLY JUSTIFICATION 2024-08-04 8 16:08:26 Ordered by an unspecified provider. [facility] SCANNED LAB RESULTS 2024-06-03 7 20:47:02 Ordered by an unspecified provider. [facility] PHYSICIAN ORDERS 2024-05-05 0 21:19:25 Ordered by an unspecified provider. [facility] XR KNEE 3 VW LEFT 2024-04-03 5 22:12:37 EXAM: XR KNEE 3 VW LEFT HISTORY: left knee pain Room COMPARISON: None. FINDINGS: Radiographs of the left knee demonstrate no acute fracture or dislocation.The joint spaces are preserved. Alignment is within normal limits. Smallpatellar enthesophyte. Diffuse osseous demineralization. Small jointeffusion. Arterial vascular calcifications of the posterior knee. [id number] 00:00:37* Test Item Value Reference Range Interpretation Comme nts TROPONIN I (test code = 4054040913) 0.031 ng/mL <=0.034 MAJOR (test code = MAJOR) Reference (Normal) [...] of biotin. Lab Interpretation (test code = 87653-4) Normal [facility]. METABOLIC PANEL (99181)2024-01-16 23:52:55* Test Item Value Reference Range Interpretation Comme nts NA (test code = 3375918819) 141 mmol/L 135-145 K (test code = 2067703731) 3.5 mmol/L 3.5-5.0 CL (test code = 8405939718) 103 mmol/L 98-108 CO2 TOTAL (test code = 0029328963) 31 mmol/L 23-31 AGAP (test code = 1731442983) 7 2-16 BUN (test code = 6270166223) 17 mg/dL 7-23 GLUCOSE (test code = 5797073947) 74 mg/dL 70-110 CREATININE (test code = 2160-0) 1.30 mg/dL 0.50-1.04 H TOTAL BILI (test code = 5167564046) 0.8 mg/dL 0.1-1.1 CALCIUM (test code = 0198302318) 9.4 mg/dL 8.6-10.6 T PROTEIN (test code = 0049605680) 8.0 g/dL 6.3-8.2 ALBUMIN (test code = 1541009969) 4.0 g/dL 3.5-5.0 ALK PHOS (test code = 0770473378) 56 U/L 34-122 ALTv (test code = 1742-6) 11 U/L 5-35 AST(SGOT) (test code = 9989652923) 19 U/L 13-40 eGFR (test code = 73747-2) 42.4 mL/min/1.73m2 CKD-EPI eGFR (2020). Assuming creatinine has been stable day-to-day for at least three months, the eGFR indicates Category G3b (30 - 44 mL/min/1.73 m2) Lab Interpretation (test code = 17096-2) [facility]normal [facility] [id number] 23:52:34* Test Item Value Reference Range Interpretation Comme nts LIPASE (test code = 1704845164) 52 U/L 0-220 Lab Interpretation (test cod e = 23525-8) Normal [facility] [id number] 23:40:33* Test Item Value Reference Range Interpretation [...] g/dL 31.6-35.1 L RDW-SD (test code = 95108-1) 49.3 fL 39.0-49.9 RDW-CV (test code = 788-0) 17.4 % 12.0-15.5 H PLT (test code = 777-3) 288 166-358 MPV (test code = 67183-6) 10.3 fL 9.5-12.9 NRBC/100 WBC (test code = 8911602362) 0.0 0.0-10.0 NRBC x10^3 (test code = 8522466116) See_Comment [Automated messa ge] The system which generated this result transmitted reference range: 10*3/?L. The reference range was not used to interpret this result as normal/abnormal. GRAN MAT (NEUT) % (test code = 770-8) 74.4 % IMM GRAN % (test code = 7434615313) 0.50 % LYMPH % (test code = 736-9) 11.2 % MONO % (test code = 5905-5) 10.0 % EOS % (test code = 713-8) 3.4 % BASO % (test code = 706-2) 0.5 % GRAN MAT x10^3(ANC) (test code = 7237978807) 7.21 10*3/uL 1.88-7.09 H IMM GRAN x10^3 (test code = 9539547848) 0.05 10*3/uL 0.00-0.06 LYMPH x10^3 (test code = 731-0) 1.09 10*3/uL 1.32-3.29 L MONO x10^3 (test code = 742-7) 0.97 10*3/uL 0.33-0.92 H EOS x10^3 (test code = 711-2) 0.33 10*3/uL 0.03-0.39 BASO x10^3 (test code = 704-7) 0.05 10*3/uL 0.01-0.07 Lab Interpretation (test code = 65901-7) Abnormal [facility] 2 [id number] 22:10:15XR CHEST 2 VW History: SOB Comparison: 04/18/2023 Technique: PA and lateral radiographs Findings: Prominence of the interstitium again noted. No pleural effusion,parenchymal consolidation, or pneumothorax is identified. The cardiac silhouette is enlarged, unchanged. Tortuous aortic silhouette. No acute osseous abnormality is present. Partially visualized cervicalfusion hardware.[facility] Hemoglobin A1C [id number] 17:02:00* Test Item Value Reference Range Interpretation Comme [facility] POCT HBA1C (test code = 4548-4) 8.3 % 4-6 A Lab Interpretation (test cod e = 74054-9) Abnormal [facility] Hemoglobin A1C [id number] 17:02:00* Test Item Value Reference Range Interpretation Comme [facility] POCT HBA1C (test code = 4548-4) 8.3 % 4-6 A Lab Interpretation (test cod e = 68406-3) Abnormal [facility] Hemoglobin A1C [id number] 17:02:00* Test Item Value Reference Range Interpretation Comme [facility] POCT HBA1C (test code = 4548-4) 8.3 % 4-6 A Lab Interpretation (test cod e = 89575-1) Abnormal [facility] METABOLIC PANEL (NA, K, CL, CO2, GLUCOSE, BUN, CREATININE, CA)2023-10-30 22:18:04* Test Item Value Reference Range Interpretation Comme nts NA (test code = 7458691736) 138 mmol/L 135-145 K (test code = 4501238745) 4.1 mmol/L 3.5-5.0 CL (test code = 5722635375) 103 mmol/L 98-108 CO2 TOTAL (test code = 3838700600) 26 mmol/L 23-31 AGAP (test code = 3435851181) 9 2-16 BUN (test code = 9777943893) 15 mg/dL 7-23 GLUCOSE (test code = 0241956080) 177 mg/dL 70-110 H CREATININE (test code = 2160-0) 1.11 mg/dL 0.50-1.04 H CALCIUM (test code = 4751872889) 8.9 mg/dL 8.6-10.6 eGFR (test code = 52766-0) 51.6 mL/min/1.73m2 CKD-EPI eGFR (2020). Assuming creatinine has been stable day-to-day for at least three months, the eGFR indicates Category G3a (45 - 59 mL/min/1.73 m2) Lab Interpretation (test code = 80302-8) Abnormal [facility] WITH [id number] 22:08:20* Test Item Value Reference Range Interpretation [...] g/dL 31.6-35.1 L RDW-SD (test code = 89763-4) 50.7 fL 39.0-49.9 H RDW-CV (test code = 788-0) 17.1 % 12.0-15.5 H PLT (test code = 777-3) 276 166-358 MPV (test code = 90645-7) 9.9 fL 9.5-12.9 NRBC/100 WBC (test code = 4785695720) 0.0 0.0-10.0 NRBC x10^3 (test code = 1350742055) See_Comment [Automated messa ge] The system which generated this result transmitted reference range: 10*3/?L. The reference range was not used to interpret this result as normal/abnormal. GRAN MAT (NEUT) % (test code = 770-8) 78.1 % IMM GRAN % (test code = 8802202009) 0.40 % LYMPH % (test code = 736-9) 11.3 % MONO % (test code = 5905-5) 5.7 % EOS % (test code = 713-8) 3.8 % BASO % (test code = 706-2) 0.7 % GRAN MAT x10^3(ANC) (test code = 9645372088) 7.90 10*3/uL 1.88-7.09 H IMM GRAN x10^3 (test code = 2214379785) 0.04 10*3/uL 0.00-0.06 LYMPH x10^3 (test code = 731-0) 1.14 10*3/uL 1.32-3.29 L MONO x10^3 (test code = 742-7) 0.58 10*3/uL 0.33-0.92 EOS x10^3 (test code = 711-2) 0.38 10*3/uL 0.03-0.39 BASO x10^3 (test code = 704-7) 0.07 10*3/uL 0.01-0.07 Lab Interpretation (test code = 37217-2) [facility] [id number] 21:39:16* Test Item Value Reference Range Interpretation Comme nts LACTIC ACID (test code = 5280337981) 1.21 mmol/L 0.50-2.20 Lab Interpretation (test cod e = 80556-5) Normal [facility] HEMOGLOBIN A1C [id number] 17:05:00* Test Item Value Reference Range Interpretation Comme [facility] POCT HBA1C (test code = 4548-4) 8.7 % 4-6 A Lab Interpretation (test cod e = 07218-0) Abnormal [facility] HEMOGLOBIN A1C [id number] 17:05:00* Test Item Value Reference Range Interpretation Comme [facility] POCT HBA1C (test code = 4548-4) 8.7 % 4-6 A Lab Interpretation (test cod e = 22858-6) Abnormal [facility] GLUCOSE (AUTOMATED)2023-04-19 16:42:14* Test Item Value Reference Range Interpretation Comme [facility] POCT GLU (test code = 3422226039) 239 mg/dL 70-110 H Lab Interpretation (test cod e = 17703-4) Abnormal [facility] GLUCOSE (AUTOMATED)2023-04-19 13:20:04* Test Item Value Reference Range Interpretation Comme [facility] POCT GLU (test code = 0044927697) 154 mg/dL 70-110 H Lab Interpretation (test cod e = 68948-9) Abnormal [facility] METABOLIC PANEL (NA, K, CL, CO2, GLUCOSE, BUN, CREATININE, CA)2023-04-19 10:19:08* Test Item Value Reference Range Interpretation Comme [facility] NA (test code = 6204048370) 138 mmol/L 135-145 K (test code = 8579611334) 3.9 mmol/L 3.5-5.0 CL (test code = 4304748655) 99 mmol/L 98-108 CO2 TOTAL (test code = 0744044919) 29 mmol/L 23-31 AGAP (test code = 1070745173) 10 2-16 BUN (test code = 3003244198) 23 mg/dL 7-23 GLUCOSE (test code = 0469006328) 135 mg/dL 70-110 H CREATININE (test code = 0387676695) 1.42 mg/dL 0.50-1.04 H CALCIUM (test code = 2213133688) 8.5 mg/dL 8.6-10.6 L eGFR (test code = 6391876730) 36.0 mL/min/1.73m2 MAJOR (test code = MAJOR) [...] imaging tests). Lab Interpretation (test code = 77862-7) Abnormal [facility] WITH [id number] 10:05:27* Test Item Value Reference Range Interpretation Comme nts WBC (test code = 6690-2) 7.41 See_Comment [Automated [employer]] The system which generated this result transmitted reference range: 4.30 - 11.10 10*3/?L. The reference range was not used to interpret this result as normal/abnormal. RBC (test code = 789-8) 3.61 See_Comment L [Automated [employer]] The system which generated this result transmitted [...] g/dL 31.6-35.1 L RDW-SD (test code = 02226-2) 51.1 fL 39.0-49.9 H RDW-CV (test code = 788-0) 16.8 % 12.0-15.5 H PLT (test code = 777-3) 208 See_Comment [Automated [employer]] The system which generated this result transmitted reference range: 166 - 358 10*3/?L. The reference range was not used to interpret this result as normal/abnormal. MPV (test code = 02753-4) 10.5 fL 9.5-12.9 NRBC/100 WBC (test code = 9740442731) 0.0 See_Comment [Automated [employer]] The system which generated this result transmitted reference range: 0.0 - 10.0 /100 WBCs. The reference range was not used to interpret this result as normal/abnormal. NRBC x10^3 (test code = 6262588583) See_Comment [Automated [employer]] The system which generated this result transmitted reference range: 10*3/?L. The reference range was not used to interpret this result as normal/abnormal. GRAN MAT (NEUT) % (test code = 770-8) 68.6 % IMM GRAN % (test code = 4236105222) 0.70 % LYMPH % (test code = 736-9) 14.4 % MONO % (test code = 5905-5) 8.6 % EOS % (test code = 713-8) 7.0 % BASO % (test code = 706-2) 0.7 % GRAN MAT x10^3(ANC) (test code = 8746688546) 5.08 10*3/uL 1.88-7.09 IMM GRAN x10^3 (test code = 4713167893) 0.05 10*3/uL 0.00-0.06 LYMPH x10^3 (test code = 731-0) 1.07 10*3/uL 1.32-3.29 L MONO x10^3 (test code = 742-7) 0.64 10*3/uL 0.33-0.92 EOS x10^3 (test code = 711-2) 0.52 10*3/uL 0.03-0.39 H BASO x10^3 (test code = 704-7) 0.05 10*3/uL 0.01-0.07 Lab Interpretation (test code = 34887-4) Abnormal [facility] GLUCOSE (AUTOMATED)2023-04-19 04:45:03* Test Item Value Reference Range Interpretation Comme nts POCT GLU (test code = 1873426003) 184 mg/dL 70-110 H Lab Interpretation (test cod e = 50316-1) Abnormal [facility] GLUCOSE (AUTOMATED)2023-04-19 01:23:16* Test Item Value Reference Range Interpretation Comme nts POCT GLU (test code = 5557136689) 335 mg/dL 70-110 H Lab Interpretation (test cod e = 04775-6) Abnormal [facility] GLUCOSE (AUTOMATED)2023-04-18 21:46:30* Test Item Value Reference Range Interpretation Comme nts POCT GLU (test code = 1801726651) 159 mg/dL 70-110 H Lab Interpretation (test cod e = 86788-1) Abnormal [facility] GLUCOSE (AUTOMATED)2023-04-18 17:17:18* Test Item Value Reference Range Interpretation Comme nts POCT GLU (test code = 9415217679) 242 mg/dL 70-110 H Lab Interpretation (test cod e = 79214-9) Abnormal [facility] GLUCOSE (AUTOMATED)2023-04-18 13:11:03* Test Item Value Reference Range Interpretation Comme nts POCT GLU (test code = 7419761798) 218 mg/dL 70-110 H Lab Interpretation (test cod e = 73988-9) Abnormal [facility] METABOLIC PANEL (NA, K, CL, CO2, GLUCOSE, BUN, CREATININE, CA)2023-04-18 10:47:12* Test Item Value Reference Range Interpretation Comme nts NA (test code = 3898916725) 136 mmol/L 135-145 K (test code = 3045332018) 3.9 mmol/L 3.5-5.0 CL (test code = 0928102330) 99 mmol/L 98-108 CO2 TOTAL (test code = 7044558663) 30 mmol/L 23-31 AGAP (test code = 2553280576) 7 2-16 BUN (test code = 3435109447) 15 mg/dL 7-23 GLUCOSE (test code = 7299437917) 217 mg/dL 70-110 H CREATININE (test code = 4260905052) 1.10 mg/dL 0.50-1.04 H CALCIUM (test code = 2824961299) 8.4 mg/dL 8.6-10.6 L eGFR (test code = 8266680360) 48.3 mL/min/1.73m2 MAJOR (test code = MAJOR) [...] imaging tests). Lab Interpretation (test code = 45653-0) Abnormal [facility] WITHOUT [id number] 10:37:31* Test Item Value Reference Range Interpretation [...] result as normal/abnormal. MPV (test code = 79411-6) 10.1 fL 9.5-12.9 RDW-CV (test code = 788-0) 16.8 % 12.0-15.5 H RDW-SD (test code = 25874-4) 50.7 fL 39.0-49.9 H NRBC x10^3 (test code = 5189495035) See_Comment [Automated messa ge] The system which generated this result transmitted reference range: 10*3/?L. The reference range was not used to interpret this result as normal/abnormal. NRBC/100 WBC (test code = 2048078811) 0.0 See_Comment [Automated messa ge] The system which generated this result transmitted reference range: 0.0 - 10.0 /100 WBCs. The reference range was not used to interpret this result as normal/abnormal. IPF % (test code = 8329708474) Lab Interpretation (test code = 85214-4) Abnormal [facility] GLUCOSE (AUTOMATED)2023-04-18 01:44:20* Test Item Value Reference Range Interpretation Comme nts POCT GLU (test code = 6936833543) 240 mg/dL 70-110 H Lab Interpretation (test cod e = 16452-2) Abnormal [facility] GLUCOSE (AUTOMATED)2023-04-17 21:44:59* Test Item Value Reference Range Interpretation Comme nts POCT GLU (test code = 2961616721) 221 mg/dL 70-110 H Lab Interpretation (test cod e = 78657-0) Abnormal [facility] GLUCOSE (AUTOMATED)2023-04-17 16:47:28* Test Item Value Reference Range Interpretation Comme nts POCT GLU (test code = 9583586054) 239 mg/dL 70-110 H Lab Interpretation (test cod e = 29408-1) Abnormal [facility] GLUCOSE (AUTOMATED)2023-04-17 12:47:31* Test Item Value Reference Range Interpretation Comme nts POCT GLU (test code = 0593121381) 155 mg/dL 70-110 H Lab Interpretation (test cod e = 78561-7) Abnormal [facility] GLUCOSE (AUTOMATED)2023-04-17 01:13:06* Test Item Value Reference Range Interpretation Comme nts POCT GLU (test code = 5064600550) 214 mg/dL 70-110 H Lab Interpretation (test cod e = 68461-1) Abnormal [facility] GLUCOSE (AUTOMATED)2023-04-16 21:25:35* Test Item Value Reference Range Interpretation Comme nts POCT GLU (test code = 2965240099) 175 mg/dL 70-110 H Lab Interpretation (test cod e = 94159-6) Abnormal [facility] GLUCOSE (AUTOMATED)2023-04-16 17:39:02* Test Item Value Reference Range Interpretation Comme nts POCT GLU (test code = 8553893277) 239 mg/dL 70-110 H Lab Interpretation (test cod e = 65206-3) Abnormal [facility] GLUCOSE (AUTOMATED)2023-04-16 16:52:26* Test Item Value Reference Range Interpretation Comme nts POCT GLU (test code = 1381490815) 228 mg/dL 70-110 H Lab Interpretation (test cod e = 99040-8) Abnormal [facility] GLUCOSE (AUTOMATED)2023-04-16 12:52:50* Test Item Value Reference Range Interpretation Comme nts POCT GLU (test code = 3606383738) 104 mg/dL 70-110 Lab Interpretation (test cod e = 40185-4) Normal [facility] GLUCOSE (AUTOMATED)2023-04-16 12:50:54* Test Item Value Reference Range Interpretation Comme nts POCT GLU (test code = 4562061795) 96 mg/dL 70-110 Lab Interpretation (test cod e = 12828-6) Normal [facility] GLUCOSE (AUTOMATED)2023-04-16 01:47:08* Test Item Value Reference Range Interpretation Comme nts POCT GLU (test code = 1954387794) 223 mg/dL 70-110 H Lab Interpretation (test cod e = 75136-8) Abnormal [facility] GLUCOSE (AUTOMATED)2023-04-15 21:49:51* Test Item Value Reference Range Interpretation Comme nts POCT GLU (test code = 2649262660) 142 mg/dL 70-110 H Lab Interpretation (test cod e = 46791-2) Abnormal [facility] GLUCOSE (AUTOMATED)2023-04-15 16:45:53* Test Item Value Reference Range Interpretation Comme nts POCT GLU (test code = 8259778504) 117 mg/dL 70-110 H Lab Interpretation (test cod e = 82483-1) Abnormal [facility] GLUCOSE (AUTOMATED)2023-04-15 12:50:09* Test Item Value Reference Range Interpretation Comme nts POCT GLU (test code = 8521401529) 109 mg/dL 70-110 Lab Interpretation (test cod e = 04706-1) [id number] Test Item Value Reference Range Interpretation Comme nts TROPONIN I (test code = 2287068800) 0.041 ng/mL <=0.034 H MAJOR (test code [...] of biotin. Lab Interpretation (test code = 86496-6) [id number] 10:18:40* Test Item Value Reference Range Interpretation Comme nts NT-proBNP (test code = 30214-0) 6020 pg/mL <=125 H MAJOR (test code = MAJOR) Positive: Heart Failure Likely Lab Interpretation (test code = 30970-1) [facility] 10:11:24* Test Item Value Reference Range Interpretation Comme nts MAGNESIUM (test code = 7885706665) 2.0 mg/dL 1.7-2.4 Lab Interpretation (test cod e = 10184-7) [facility] (NA, K, CL, CO2, GLUCOSE, BUN, CREATININE, CA)2023-04-15 10:11:04* Test Item Value Reference Range Interpretation Comme nts NA (test code = 4401996535) 139 mmol/L 135-145 K (test code = 6666398681) 3.5 mmol/L 3.5-5.0 CL (test code = 4621904052) 101 mmol/L 98-108 CO2 TOTAL (test code = 6317544773) 29 mmol/L 23-31 AGAP (test code = 2126131552) 9 2-16 BUN (test code = 0677030199) 22 mg/dL 7-23 GLUCOSE (test code = 7966195187) 65 mg/dL 70-110 L CREATININE (test code = 5726836592) 1.41 mg/dL 0.50-1.04 H CALCIUM (test code = 8923676564) 8.0 mg/dL 8.6-10.6 L eGFR (test code = 0703648742) 36.3 mL/min/1.73m2 MAJOR (test code = MAJOR) [...] imaging tests). Lab Interpretation (test code = 85122-8) Abnormal [facility] WITH [id number] 09:51:20* Test Item Value Reference Range Interpretation Comme nts WBC (test code = 6690-2) 5.71 See_Comment [Automated [employer]] The system which generated this result transmitted reference range: 4.30 - 11.10 10*3/?L. The reference range was not used to interpret this result as normal/abnormal. RBC (test code = 789-8) 3.08 See_Comment L [Automated [employer]] The system which generated this result transmitted [...] g/dL 31.6-35.1 L RDW-SD (test code = 28328-5) 54.1 fL 39.0-49.9 H RDW-CV (test code = 788-0) 17.4 % 12.0-15.5 H PLT (test code = 777-3) 195 See_Comment [Automated messa ge] The system which generated this result transmitted reference range: 166 - 358 10*3/?L. The reference range was not used to interpret this result as normal/abnormal. MPV (test code = 33074-8) 10.2 fL 9.5-12.9 NRBC/100 WBC (test code = 9943072792) 0.0 See_Comment [Automated me ssage] The system which generated this result transmitted reference range: 0.0 - 10.0 /100 WBCs. The reference range was not used to interpret this result as normal/abnormal. NRBC x10^3 (test code = 7154429293) See_Comment [Automated messa ge] The system which generated this result transmitted reference range: 10*3/?L. The reference range was not used to interpret this result as normal/abnormal. GRAN MAT (NEUT) % (test code = 770-8) 64.6 % IMM GRAN % (test code = 3163181620) 0.40 % LYMPH % (test code = 736-9) 17.2 % MONO % (test code = 5905-5) 12.3 % EOS % (test code = 713-8) 5.3 % BASO % (test code = 706-2) 0.2 % GRAN MAT x10^3(ANC) (test code = 1707041820) 3.70 10*3/uL 1.88-7.09 IMM GRAN x10^3 (test code = 2944230437) 0.00-0.06 LYMPH x10^3 (test code = 731-0) 0.98 10*3/uL 1.32-3.29 L MONO x10^3 (test code = 742-7) 0.70 10*3/uL 0.33-0.92 EOS x10^3 (test code = 711-2) 0.30 10*3/uL 0.03-0.39 BASO x10^3 (test code = 704-7) 0.01-0.07 Lab Interpretation (test code = 80561-4) Abnormal [facility] GLUCOSE (AUTOMATED)2023-04-15 01:49:16* Test Item Value Reference Range Interpretation Comme nts POCT GLU (test code = 7102987638) 195 mg/dL 70-110 H Lab Interpretation (test cod e = 00808-2) Abnormal [facility] GLUCOSE (AUTOMATED)2023-04-14 21:39:23* Test Item Value Reference Range Interpretation Comme nts POCT GLU (test code = 4162679991) 159 mg/dL 70-110 H Lab Interpretation (test cod e = 05856-1) Abnormal [facility] GLUCOSE (AUTOMATED)2023-04-14 16:53:23* Test Item Value Reference Range Interpretation Comme nts POCT GLU (test code = 2595016388) 119 mg/dL 70-110 H Lab Interpretation (test cod e = 69004-0) Abnormal [facility] GLUCOSE (AUTOMATED)2023-04-14 12:58:53* Test Item Value Reference Range Interpretation Comme nts POCT GLU (test code = 7944003497) 84 mg/dL 70-110 Lab Interpretation (test cod e = 28574-7) Normal [facility] GLUCOSE (AUTOMATED)2023-04-14 02:29:08* Test Item Value Reference Range Interpretation Comme nts POCT GLU (test code = 7130020543) 204 mg/dL 70-110 H Lab Interpretation (test cod e = 25787-4) Abnormal [facility] GLUCOSE (AUTOMATED)2023-04-13 22:42:06* Test Item Value Reference Range Interpretation Comme nts POCT GLU (test code = 5593036368) 210 mg/dL 70-110 H Lab Interpretation (test cod e = 44665-9) Abnormal [facility] GLUCOSE (AUTOMATED)2023-04-13 17:07:42* Test Item Value Reference Range Interpretation Comme nts POCT GLU (test code = 3666695895) 217 mg/dL 70-110 H Lab Interpretation (test cod e = 19458-5) Abnormal [facility] GLUCOSE (AUTOMATED)2023-04-13 13:23:19* Test Item Value Reference Range Interpretation Comme nts POCT GLU (test code = 4711264478) 178 mg/dL 70-110 H Lab Interpretation (test cod e = 39905-1) [facility] [id number] 00:12:28* Test Item Value Reference Range Interpretation Comme nts TROPONIN I (test code = 1857643374) 0.065 ng/mL <=0.034 H MAJOR (test code [...] of biotin. Lab Interpretation (test code = 69416-1) [facility]normal [facility] [id number] 00:10:06* Test Item Value Reference Range Interpretation Comme nts NT-proBNP (test code = 73648-9) 5780 pg/mL <=125 H MAJOR (test code = MAJOR) Positive: Heart Failure Likely Lab Interpretation (test code = 39185-8) Abnormal [facility]. METABOLIC PANEL (21579)2023-04-12 21:48:02* Test Item Value Reference Range Interpretation Comme nts NA (test code = 3332118826) 141 mmol/L 135-145 K (test code = 7437717568) 4.3 mmol/L 3.5-5.0 CL (test code = 3915215095) 104 mmol/L 98-108 CO2 TOTAL (test code = 5146979537) 23 mmol/L 23-31 AGAP (test code = 9660517247) 14 2-16 BUN (test code = 8924849240) 25 mg/dL 7-23 H GLUCOSE (test code = 3836956164) 289 mg/dL 70-110 H CREATININE (test code = 7542096985) 1.30 mg/dL 0.50-1.04 H TOTAL BILI (test code = 3099540001) 0.7 mg/dL 0.1-1.1 CALCIUM (test code = 6696807229) 8.6 mg/dL 8.6-10.6 T PROTEIN (test code = 1418723300) 7.0 g/dL 6.3-8.2 ALBUMIN (test code = 9283755710) 3.6 g/dL 3.5-5.0 ALK PHOS (test code = 7163491503) 49 U/L 34-122 ALTv (test code = 1742-6) 32 U/L 5-35 AST(SGOT) (test code = 1620078645) 34 U/L 13-40 eGFR (test code = 8371308658) 39.8 mL/min/1.73m2 MAJOR (test code = MAJOR) [...] imaging tests). Lab Interpretation (test code = 53778-4) Abnormal [facility] WITH [id number] 21:34:38* Test Item Value Reference Range Interpretation [...] g/dL 31.6-35.1 L RDW-SD (test code = 69120-5) 53.4 fL 39.0-49.9 H RDW-CV (test code = 788-0) 17.4 % 12.0-15.5 H PLT (test code = 777-3) 235 See_Comment [Automated message] The system which generated this result transmitted reference range: 166 - 358 10*3/?L. The reference range was not used to interpret this result as normal/abnormal. MPV (test code = 25099-2) 10.7 fL 9.5-12.9 NRBC/100 WBC (test code = 4910002801) 0.0 See_Comment [Automated message] The system which generated this result transmitted reference range: 0.0 - 10.0 /100 WBCs. The reference range was not used to interpret this result as normal/abnormal. NRBC x10^3 (test code = 7545541060) See_Comment [Automated message] The system which generated this result transmitted reference range: 10*3/?L. The reference range was not used to interpret this result as normal/abnormal. GRAN MAT (NEUT) % (test code = 770-8) 89.1 % IMM GRAN % (test code = 3505113214) 0.50 % LYMPH % (test code = 736-9) 3.5 % MONO % (test code = 5905-5) 5.5 % EOS % (test code = 713-8) 0.9 % BASO % (test code = 706-2) 0.5 % GRAN MAT x10^3(ANC) (test code = 3150571766) 12.01 10*3/uL 1.88-7.09 H IMM GRAN x10^3 (test code = 0717726083) 0.07 10*3/uL 0.00-0.06 H LYMPH x10^3 (test code = 731-0) 0.47 10*3/uL 1.32-3.29 L MONO x10^3 (test code = 742-7) 0.74 10*3/uL 0.33-0.92 EOS x10^3 (test code = 711-2) 0.12 10*3/uL 0.03-0.39 BASO x10^3 (test code = 704-7) 0.07 10*3/uL 0.01-0.07 Lab Interpretation (test code = 85695-8) Abnormal [facility] GLUCOSE (AUTOMATED)2023-03-28 12:41:03* Test Item Value Reference Range Interpretation Comme nts POCT GLU (test code = 7260884937) 222 mg/dL 70-110 H Lab Interpretation (test cod e = 94647-6) Abnormal [facility] GLUCOSE (AUTOMATED)2023-03-28 12:41:03* Test Item Value Reference Range Interpretation Comme nts POCT GLU (test code = 9675187710) 222 mg/dL 70-110 H Lab Interpretation (test cod e = 74793-7) Abnormal [facility] GLUCOSE (AUTOMATED)2023-03-28 01:18:56* Test Item Value Reference Range Interpretation Comme nts POCT GLU (test code = 6579589846) 254 mg/dL 70-110 H Lab Interpretation (test cod e = 94617-9) Abnormal [facility] GLUCOSE (AUTOMATED)2023-03-28 01:18:56* Test Item Value Reference Range Interpretation Comme nts POCT GLU (test code = 8028614569) 254 mg/dL 70-110 H Lab Interpretation (test cod e = 03031-9) Abnormal [facility] GLUCOSE (AUTOMATED)2023-03-27 21:45:55* Test Item Value Reference Range Interpretation Comme nts POCT GLU (test code = 2119218857) 144 mg/dL 70-110 H Lab Interpretation (test cod e = 04179-1) Abnormal [facility] GLUCOSE (AUTOMATED)2023-03-27 21:45:55* Test Item Value Reference Range Interpretation Comme nts POCT GLU (test code = 9627941624) 144 mg/dL 70-110 H Lab Interpretation (test cod e = 00664-0) Abnormal [facility] GLUCOSE (AUTOMATED)2023-03-27 16:56:58* Test Item Value Reference Range Interpretation Comme nts POCT GLU (test code = 4773457460) 144 mg/dL 70-110 H Lab Interpretation (test cod e = 37546-0) Abnormal [facility] GLUCOSE (AUTOMATED)2023-03-27 16:56:58* Test Item Value Reference Range Interpretation Comme nts POCT GLU (test code = 2132493334) 144 mg/dL 70-110 H Lab Interpretation (test cod e = 35967-9) [facility] 15:26:26* Test Item Value Reference Range Interpretation Comme nts APTT Patient (test code = 3173-2) 70 See_Comment H [Automated messa ge] The system which generated this result transmitted reference range: 26 - 36 Seconds. The reference range was not used to interpret this result as normal/abnormal. Lab Interpretation (test code = 16307-5) Abnormal [facility] (for use with Heparin Drip)2023-03-27 15:26:26* Test Item Value Reference Range Interpretation Comme nts APTT Patient (test code = 3173-2) 70 See_Comment H [Automated messa ge] The system which generated this result transmitted reference range: 26 - 36 Seconds. The reference range was not used to interpret this result as normal/abnormal. Lab Interpretation (test code = 73538-8) Abnormal [facility] GLUCOSE (AUTOMATED)2023-03-27 13:13:38* Test Item Value Reference Range Interpretation Comme nts POCT GLU (test code = 5111474963) 251 mg/dL 70-110 H Lab Interpretation (test cod e = 84603-0) Abnormal [facility] GLUCOSE (AUTOMATED)2023-03-27 13:13:38* Test Item Value Reference Range Interpretation Comme nts POCT GLU (test code = 2557364423) 251 mg/dL 70-110 H Lab Interpretation (test cod e = 66164-8) Abnormal [facility] GLUCOSE (AUTOMATED)2023-03-27 03:00:44* Test Item Value Reference Range Interpretation Comme nts POCT GLU (test code = 2955253122) 222 mg/dL 70-110 H Lab Interpretation (test cod e = 24727-1) Abnormal [facility] GLUCOSE (AUTOMATED)2023-03-27 03:00:44* Test Item Value Reference Range Interpretation Comme nts POCT GLU (test code = 8139511358) 222 mg/dL 70-110 H Lab Interpretation (test cod e = 51939-9) [facility] Heparin Drip[facility]2023-03-26 21:49:46* Test Item Value Reference Range Interpretation Comme nts APTT Patient (test code = 3173-2) 38 See_Comment H [Automated messa ge] The system which generated this result transmitted reference range: 26 - 36 Seconds. The reference range was not used to interpret this result as normal/abnormal. Lab Interpretation (test code = 42987-8) [facility]for use with Heparin Drip)2023-03-26 21:49:46* Test Item Value Reference Range Interpretation Comme nts APTT Patient (test code = 3173-2) 38 See_Comment H [Automated messa ge] The system which generated this result transmitted reference range: 26 - 36 Seconds. The reference range was not used to interpret this result as normal/abnormal. Lab Interpretation (test code = 90501-4) Abnormal [facility] GLUCOSE (AUTOMATED)2023-03-26 21:48:30* Test Item Value Reference Range Interpretation Comme nts POCT GLU (test code = 7049258385) 118 mg/dL 70-110 H Lab Interpretation (test cod e = 76836-3) Abnormal [facility] GLUCOSE (AUTOMATED)2023-03-26 21:48:30* Test Item Value Reference Range Interpretation Comme nts POCT GLU (test code = 5436303119) 118 mg/dL 70-110 H Lab Interpretation (test cod e = 81962-5) Abnormal [facility] GLUCOSE (AUTOMATED)2023-03-26 17:39:21* Test Item Value Reference Range Interpretation Comme nts POCT GLU (test code = 5642382054) 152 mg/dL 70-110 H Lab Interpretation (test cod e = 15423-3) Abnormal [facility] GLUCOSE (AUTOMATED)2023-03-26 17:39:21* Test Item Value Reference Range Interpretation Comme nts POCT GLU (test code = 3187369573) 152 mg/dL 70-110 H Lab Interpretation (test cod e = 31143-4) Abnormal [facility] GLUCOSE (AUTOMATED)2023-03-26 12:19:26* Test Item Value Reference Range Interpretation Comme nts POCT GLU (test code = 8097501139) 188 mg/dL 70-110 H Lab Interpretation (test cod e = 16775-9) Abnormal [facility] GLUCOSE (AUTOMATED)2023-03-26 12:19:26* Test Item Value Reference Range Interpretation Comme nts POCT GLU (test code = 0238707370) 188 mg/dL 70-110 H Lab Interpretation (test cod e = 99941-1) Abnormal [facility] GLUCOSE (AUTOMATED)2023-03-26 03:12:58* Test Item Value Reference Range Interpretation Comme nts POCT GLU (test code = 1339681318) 250 mg/dL 70-110 H Lab Interpretation (test cod e = 05462-8) Abnormal [facility] GLUCOSE (AUTOMATED)2023-03-26 03:12:58* Test Item Value Reference Range Interpretation Comme nts POCT GLU (test code = 7011152110) 250 mg/dL 70-110 H Lab Interpretation (test cod e = 26126-6) [facility] [id number] 00:10:00* Test Item Value Reference Range Interpretation Comme nts APTT Patient (test code = 3173-2) 68 See_Comment H [Automated messa ge] The system which generated this result transmitted reference range: 26 - 36 Seconds. The reference range was not used to interpret this result as normal/abnormal. Lab Interpretation (test code = 46108-2) [facility] [id number] 00:10:00* Test Item Value Reference Range Interpretation Comme nts APTT Patient (test code = 3173-2) 68 See_Comment H [Automated messa ge] The system which generated this result transmitted reference range: 26 - 36 Seconds. The reference range was not used to interpret this result as normal/abnormal. Lab Interpretation (test code = 10497-7) Abnormal [facility] GLUCOSE (AUTOMATED)2023-03-25 23:08:26* Test Item Value Reference Range Interpretation Comme nts POCT GLU (test code = 7165654321) 216 mg/dL 70-110 H Lab Interpretation (test cod e = 54550-1) Abnormal [facility] GLUCOSE (AUTOMATED)2023-03-25 23:08:26* Test Item Value Reference Range Interpretation Comme nts POCT GLU (test code = 2823636100) 216 mg/dL 70-110 H Lab Interpretation (test cod e = 27418-2) Abnormal [facility] METABOLIC PANEL (NA, K, CL, CO2, GLUCOSE, BUN, CREATININE, CA)2023-03-25 20:57:17* Test Item Value Reference Range Interpretation Comme nts NA (test code = 1014826724) 138 mmol/L 135-145 K (test code = 1796129071) 3.9 mmol/L 3.5-5.0 CL (test code = 6327822497) 105 mmol/L 98-108 CO2 TOTAL (test code = 5362653790) 28 mmol/L 23-31 AGAP (test code = 5849840532) 5 2-16 BUN (test code = 0534626584) 27 mg/dL 7-23 H GLUCOSE (test code = 8300523834) 156 mg/dL 70-110 H CREATININE (test code = 7405283077) 1.42 mg/dL 0.50-1.04 H CALCIUM (test code = 8451951173) 7.3 mg/dL 8.6-10.6 L eGFR (test code = 4436662935) 36.0 mL/min/1.73m2 MAJOR (test code = MAJOR) [...] imaging tests). Lab Interpretation (test code = 74682-8) Abnormal [facility] METABOLIC PANEL (NA, K, CL, CO2, GLUCOSE, BUN, CREATININE, CA)2023-03-25 20:57:17* Test Item Value Reference Range Interpretation Comme nts NA (test code = 8811371249) 138 mmol/L 135-145 K (test code = 9079687416) 3.9 mmol/L 3.5-5.0 CL (test code = 4000954959) 105 mmol/L 98-108 CO2 TOTAL (test code = 1703417707) 28 mmol/L 23-31 AGAP (test code = 7736778301) 5 2-16 BUN (test code = 9179957711) 27 mg/dL 7-23 H GLUCOSE (test code = 8821543539) 156 mg/dL 70-110 H CREATININE (test code = 2606899850) 1.42 mg/dL 0.50-1.04 H CALCIUM (test code = 6408962676) 7.3 mg/dL 8.6-10.6 L eGFR (test code = 8329156858) 36.0 mL/min/1.73m2 MAJOR (test code = MAJOR) [...] imaging tests). Lab Interpretation (test code = 74053-6) Abnormal [facility] GLUCOSE (AUTOMATED)2023-03-25 20:45:01* Test Item Value Reference Range Interpretation Comme nts POCT GLU (test code = 1753244043) 177 mg/dL 70-110 H Lab Interpretation (test cod e = 77859-1) Abnormal [facility] GLUCOSE (AUTOMATED)2023-03-25 20:45:01* Test Item Value Reference Range Interpretation Comme nts POCT GLU (test code = 6931809425) 177 mg/dL 70-110 H Lab Interpretation (test cod e = 29836-0) Abnormal [facility] WITH [id number] 20:44:30* Test Item Value Reference Range Interpretation [...] g/dL 31.6-35.1 L RDW-SD (test code = 35773-4) 51.8 fL 39.0-49.9 H RDW-CV (test code = 788-0) 16.7 % 12.0-15.5 H PLT (test code = 777-3) 165 See_Comment L [Automated messa ge] The system which generated this result transmitted reference range: 166 - 358 10*3/?L. The reference range was not used to interpret this result as normal/abnormal. MPV (test code = 44512-7) 10.2 fL 9.5-12.9 NRBC/100 WBC (test code = 4194604668) 0.0 See_Comment [Automated me ssage] The system which generated this result transmitted reference range: 0.0 - 10.0 /100 WBCs. The reference range was not used to interpret this result as normal/abnormal. NRBC x10^3 (test code = 1052504141) See_Comment [Automated messa ge] The system which generated this result transmitted reference range: 10*3/?L. The reference range was not used to interpret this result as normal/abnormal. GRAN MAT (NEUT) % (test code = 770-8) 67.7 % IMM GRAN % (test code = 2632537268) 2.00 % LYMPH % (test code = 736-9) 14.0 % MONO % (test code = 5905-5) 9.6 % EOS % (test code = 713-8) 6.0 % BASO % (test code = 706-2) 0.7 % GRAN MAT x10^3(ANC) (test code = 9856914841) 4.10 10*3/uL 1.88-7.09 IMM GRAN x10^3 (test code = 2740579762) 0.12 10*3/uL 0.00-0.06 H LYMPH x10^3 (test code = 731-0) 0.85 10*3/uL 1.32-3.29 L MONO x10^3 (test code = 742-7) 0.58 10*3/uL 0.33-0.92 EOS x10^3 (test code = 711-2) 0.36 10*3/uL 0.03-0.39 BASO x10^3 (test code = 704-7) 0.04 10*3/uL 0.01-0.07 Lab Interpretation (test code = 60206-2) Abnormal [facility] WITH [id number] 20:44:30* Test Item Value Reference Range Interpretation Comme nts WBC (test code = 6690-2) 6.05 See_Comment [Automated messa ge] The system which generated this result transmitted reference range: 4.30 - 11.10 10*3/?L. The reference range was not used to interpret this result as normal/abnormal. RBC (test code = 789-8) 2.85 See_Comment L [Automated [employer]] The system which generated this result [...] g/dL 31.6-35.1 L RDW-SD (test code = 28894-8) 51.8 fL 39.0-49.9 H RDW-CV (test code = 788-0) 16.7 % 12.0-15.5 H PLT (test code = 777-3) 165 See_Comment L [Automated [employer]] The system which generated this result transmitted reference range: 166 - 358 10*3/?L. The reference range was not used to interpret this result as normal/abnormal. MPV (test code = 23425-0) 10.2 fL 9.5-12.9 NRBC/100 WBC (test code = 8862351334) 0.0 See_Comment [Automated [employer] ssage] The system which generated this result transmitted reference range: 0.0 - 10.0 /100 WBCs. The reference range was not used to interpret this result as normal/abnormal. NRBC x10^3 (test code = 4124751282) See_Comment [Automated [employer]] The system which generated this result transmitted reference range: 10*3/?L. The reference range was not used to interpret this result as normal/abnormal. GRAN MAT (NEUT) % (test code = 770-8) 67.7 % IMM GRAN % (test code = 2949136461) 2.00 % LYMPH % (test code = 736-9) 14.0 % MONO % (test code = 5905-5) 9.6 % EOS % (test code = 713-8) 6.0 % BASO % (test code = 706-2) 0.7 % GRAN MAT x10^3(ANC) (test code = 0529839199) 4.10 10*3/uL 1.88-7.09 IMM GRAN x10^3 (test code = 9266791602) 0.12 10*3/uL 0.00-0.06 H LYMPH x10^3 (test code = 731-0) 0.85 10*3/uL 1.32-3.29 L MONO x10^3 (test code = 742-7) 0.58 10*3/uL 0.33-0.92 EOS x10^3 (test code = 711-2) 0.36 10*3/uL 0.03-0.39 BASO x10^3 (test code = 704-7) 0.04 10*3/uL 0.01-0.07 Lab Interpretation (test code = 03398-9) Abnormal [facility] GLUCOSE (AUTOMATED)2023-03-25 15:53:55* Test Item Value Reference Range Interpretation Comme nts POCT GLU (test code = 7643588457) 226 mg/dL 70-110 H Notified Provide r Lab Interpretation (test code = 56521-8) Abnormal [facility] GLUCOSE (AUTOMATED)2023-03-25 15:53:55* Test Item Value Reference Range Interpretation Comme nts POCT GLU (test code = 2889814788) 226 mg/dL 70-110 H Notified Provide r Lab Interpretation (test code = 27115-0) Abnormal [facility] GLUCOSE (AUTOMATED)2023-03-25 12:36:08* Test Item Value Reference Range Interpretation Comme nts POCT GLU (test code = 9521268617) 211 mg/dL 70-110 H Notified Provide r Lab Interpretation (test code = 11174-6) Abnormal [facility] GLUCOSE (AUTOMATED)2023-03-25 12:36:08* Test Item Value Reference Range Interpretation Comme nts POCT GLU (test code = 5688094633) 211 mg/dL 70-110 H Notified Provide r Lab Interpretation (test code = 29784-2) Abnormal [facility] GLUCOSE (AUTOMATED)2023-03-25 01:07:27* Test Item Value Reference Range Interpretation Comme nts POCT GLU (test code = 0155047660) 285 mg/dL 70-110 H Lab Interpretation (test cod e = 91370-7) [facility]23-[facility]-25 01:07:27* Test Item Value Reference Range Interpretation Comme nts POCT GLU (test code = 1025608585) 285 mg/dL 70-110 H Lab Interpretation (test cod e = 59888-3) [facility] use with Heparin Drip[facility]2023-03-24 22:39:37* Test Item Value Reference Range Interpretation Comme nts APTT Patient (test code = 3173-2) 47 See_Comment H [Automated messa ge] The system which generated this result transmitted reference range: 26 - 36 Seconds. The reference range was not used to interpret this result as normal/abnormal. Lab Interpretation (test code = 30798-5) [facility] use with Heparin Drip[facility]2023-03-24 22:39:37* Test Item Value Reference Range Interpretation Comme nts APTT Patient (test code = 3173-2) 47 See_Comment H [Automated messa ge] The system which generated this result transmitted reference range: 26 - 36 Seconds. The reference range was not used to interpret this result as normal/abnormal. Lab Interpretation (test code = 11550-5) Abnormal [facility] GLUCOSE (AUTOMATED)2023-03-24 22:35:11* Test Item Value Reference Range Interpretation Comme nts POCT GLU (test code = 6287894588) 277 mg/dL 70-110 H Lab Interpretation (test cod e = 70792-3) Abnormal [facility] GLUCOSE (AUTOMATED)2023-03-24 22:35:11* Test Item Value Reference Range Interpretation Comme nts POCT GLU (test code = 2664702001) 277 mg/dL 70-110 H Lab Interpretation (test cod e = 46748-9) Abnormal [facility] GLUCOSE (AUTOMATED)2023-03-24 20:08:36* Test Item Value Reference Range Interpretation Comme [facility] POCT GLU (test code = 6650519575) 326 mg/dL 70-110 H Lab Interpretation (test cod e = 83399-1) [facility]-24 20:08:36* Test Item Value Reference Range Interpretation Comme [facility] POCT GLU (test code = 7993680031) 326 mg/dL 70-110 H Lab Interpretation (test cod e = 21752-5) [facility] 21 + LACTIC [id number] 18:19:03* Test Item Value Reference Range Interpretation Comme nts PH (test code = 3863083053) 7.45 7.32-7.42 H PCO2 JARRET (test code = 5116226534) 38 See_Comment L [Automated messa ge] The system which generated this result transmitted reference range: 41 - 51 mmHg. The reference range was not used to interpret this result as normal/abnormal. PO2 JARRET (test code = 0721141675) 81 See_Comment HH [Automated messa ge] The system which generated this result transmitted reference range: 25 - 40 mmHg. The reference range was not used to interpret this result as normal/abnormal. HCO3 AJRRET (test code = 4610989737) 26 See_Comment [Automated messa ge] The system which generated this result transmitted reference range: 24 - 28 mEq/L. The reference range was not used to interpret this result as normal/abnormal. AC VBE(BEAKER) (test code = 3945683014) 1.6 mEq/L THB JARRET (test code = 3951035936) 10.1 g/dL 12.0-16.0 L %O2HB JARRET (test code = 3297032605) 94.1 % 52.0-63.0 H %COHB JARRET (test code = 1668115826) 1.2 % 0.0-1.5 %METHB JARRET (test code = 0321991600) 0.3 % 0.4-1.5 L VOL%O2 JARRET (test code = 4234624606) 13.5 % 6.0-12.0 H NA (test code = 6244407117) 133 mmol/L 135-145 L K+ (test code = 7036610124) 3.8 mmol/L 3.5-5.0 AC CA IONZ (test code = 8202792139) 4.40 mg/dL 4.50-5.30 L GLUCOSE (test code = 0094470773) 272 mg/dL 70-110 H LACTIC ACID (test code = 6878472676) 1.85 mmol/L 0.50-2.20 Lab Interpretation (test code = 73589-1) [facility] + LACTIC [id number] 18:19:03* Test Item Value Reference Range Interpretation Comme nts PH (test code = 7927632185) 7.45 7.32-7.42 H PCO2 JARRET (test code = 5768683582) 38 See_Comment L [Automated messa ge] The system which generated this result transmitted reference range: 41 - 51 mmHg. The reference range was not used to interpret this result as normal/abnormal. PO2 JARRET (test code = 2833553683) 81 See_Comment HH [Automated messa ge] The system which generated this result transmitted reference range: 25 - 40 mmHg. The reference range was not used to interpret this result as normal/abnormal. HCO3 JARRET (test code = 0778436189) 26 See_Comment [Automated messa ge] The system which generated this result transmitted reference range: 24 - 28 mEq/L. The reference range was not used to interpret this result as normal/abnormal. AC VBE(BEAKER) (test code = 2655770729) 1.6 mEq/L THB JARRET (test code = 0324825685) 10.1 g/dL 12.0-16.0 L %O2HB JARRET (test code = 0434105922) 94.1 % 52.0-63.0 H %COHB JARRET (test code = 8509921594) 1.2 % 0.0-1.5 %METHB JARRET (test code = 5920485775) 0.3 % 0.4-1.5 L VOL%O2 JARRET (test code = 1064761795) 13.5 % 6.0-12.0 H NA (test code = 1127205805) 133 mmol/L 135-145 L K+ (test code = 1046289177) 3.8 mmol/L 3.5-5.0 AC CA IONZ (test code = 6927370697) 4.40 mg/dL 4.50-5.30 L GLUCOSE (test code = 5939420704) 272 mg/dL 70-110 H LACTIC ACID (test code = 9778545811) 1.85 mmol/L 0.50-2.20 Lab Interpretation (test code = 30196-6) Abnormal [facility] GLUCOSE (AUTOMATED)2023-03-24 17:01:07* Test Item Value Reference Range Interpretation Comme nts POCT GLU (test code = 3102572829) 301 mg/dL 70-110 H Lab Interpretation (test cod e = 12517-1) Abnormal [facility] GLUCOSE (AUTOMATED)2023-03-24 17:01:07* Test Item Value Reference Range Interpretation Comme nts POCT GLU (test code = 5717651714) 301 mg/dL 70-110 H Lab Interpretation (test cod e = 08178-3) [facility] Test Item Value Reference Range Interpretation Comme nts APTT Patient (test code = 3173-2) 31 See_Comment [Automated messa ge] The system which generated this result transmitted reference range: 26 - 36 Seconds. The reference range was not used to interpret this result as normal/abnormal. Lab Interpretation (test code = 23298-9) Normal [place] [id number] 15:34:35* Test Item Value Reference Range Interpretation Comme nts APTT Patient (test code = 3173-2) 31 See_Comment [Automated messa ge] The system which generated this result transmitted reference range: 26 - 36 Seconds. The reference range was not used to interpret this result as normal/abnormal. Lab Interpretation (test code = 48347-7) [facility] - ONCE [id number] 15:24:00* Test Item Value Reference Range Interpretation Comme nts ABO & RH (test code = 20) B NEGATIVE IAT (test code = 1185) Negative [facility] and Screen - ONCE [id number] 15:24:00* Test Item Value Reference Range Interpretation Comme nts ABO & RH (test code = 20) B NEGATIVE IAT (test code = 1185) Negative [facility] GLUCOSE (AUTOMATED)2023-03-24 13:42:17* Test Item Value Reference Range Interpretation Comme [facility] POCT GLU (test code = 3101942322) 256 mg/dL 70-110 H Lab Interpretation (test cod e = 89414-3) [facility]normal [facility]2023-03-24 13:42:17* Test Item Value Reference Range Interpretation Comme [facility] POCT GLU (test code = 8483211901) 256 mg/dL 70-110 H Lab Interpretation (test cod e = 27685-5) Abnormal [facility] METABOLIC PANEL (NA, K, CL, CO2, GLUCOSE, BUN, CREATININE, CA)2023-03-24 12:06:10* Test Item Value Reference Range Interpretation Comme [facility] NA (test code = 8615798045) 136 mmol/L 135-145 K (test code = 9628172371) 4.1 mmol/L 3.5-5.0 CL (test code = 9487216260) 100 mmol/L 98-108 CO2 TOTAL (test code = 5059614850) 27 mmol/L 23-31 AGAP (test code = 5392259117) 9 2-16 BUN (test code = 9454645953) 31 mg/dL 7-23 H GLUCOSE (test code = 5445496856) 195 mg/dL 70-110 H CREATININE (test code = 4833891394) 1.46 mg/dL 0.50-1.04 H CALCIUM (test code = 9723148399) 8.0 mg/dL 8.6-10.6 L eGFR (test code = 7247946856) 34.8 mL/min/1.73m2 MAJOR (test code = MAJOR) [...] imaging tests). Lab Interpretation (test code = 24724-9) [facility] 12:06:10* Test Item Value Reference Range Interpretation Comme nts MAGNESIUM (test code = 6014827991) 2.0 mg/dL 1.7-2.4 Lab Interpretation (test cod e = 09573-9) [facility]23[facility] 12:06:10* Test Item Value Reference Range Interpretation Comme nts PHOSPHORUS (test code = 9333322331) 4.3 mg/dL 2.5-5.0 Lab Interpretation (test cod e = 54185-4) [facility]OL[facility] (NA, K, CL, CO2, GLUCOSE, BUN, CREATININE, CA)2023-03-24 12:06:10* Test Item Value Reference Range Interpretation Comme nts NA (test code = 5670245716) 136 mmol/L 135-145 K (test code = 3916640010) 4.1 mmol/L 3.5-5.0 CL (test code = 7801427566) 100 mmol/L 98-108 CO2 TOTAL (test code = 0197557178) 27 mmol/L 23-31 AGAP (test code = 6006861007) 9 2-16 BUN (test code = 7812137840) 31 mg/dL 7-23 H GLUCOSE (test code = 6724429830) 195 mg/dL 70-110 H CREATININE (test code = 1041143693) 1.46 mg/dL 0.50-1.04 H CALCIUM (test code = 0758235388) 8.0 mg/dL 8.6-10.6 L eGFR (test code = 3257950312) 34.8 mL/min/1.73m2 MAJOR (test code = MAJOR) [...] imaging tests). Lab Interpretation (test code = 17547-6) [facility] 12:06:10* Test Item Value Reference Range Interpretation Comme nts MAGNESIUM (test code = 4565114123) 2.0 mg/dL 1.7-2.4 Lab Interpretation (test cod e = 62712-6) [facility]23[facility] 12:06:10* Test Item Value Reference Range Interpretation Comme nts PHOSPHORUS (test code = 6582437103) 4.3 mg/dL 2.5-5.0 Lab Interpretation (test cod e = 63615-1) Normal [facility] WITH [id number] 11:06:46* Test Item Value Reference Range Interpretation [...] g/dL 31.6-35.1 L RDW-SD (test code = 37771-8) 52.1 fL 39.0-49.9 H RDW-CV (test code = 788-0) 17.0 % 12.0-15.5 H PLT (test code = 777-3) 170 See_Comment [Automated messa ge] The system which generated this result transmitted reference range: 166 - 358 10*3/?L. The reference range was not used to interpret this result as normal/abnormal. MPV (test code = 97455-9) 10.3 fL 9.5-12.9 NRBC/100 WBC (test code = 4615612579) 0.0 See_Comment [Automated [employer] ssage] The system which generated this result transmitted reference range: 0.0 - 10.0 /100 WBCs. The reference range was not used to interpret this result as normal/abnormal. NRBC x10^3 (test code = 3871868469) See_Comment [Automated messa ge] The system which generated this result transmitted reference range: 10*3/?L. The reference range was not used to interpret this result as normal/abnormal. GRAN MAT (NEUT) % (test code = 770-8) 71.6 % IMM GRAN % (test code = 3988224480) 0.40 % LYMPH % (test code = 736-9) 12.7 % MONO % (test code = 5905-5) 9.5 % EOS % (test code = 713-8) 5.4 % BASO % (test code = 706-2) 0.4 % GRAN MAT x10^3(ANC) (test code = 0623390051) 5.14 10*3/uL 1.88-7.09 IMM GRAN x10^3 (test code = 1681080845) 0.03 10*3/uL 0.00-0.06 LYMPH x10^3 (test code = 731-0) 0.91 10*3/uL 1.32-3.29 L MONO x10^3 (test code = 742-7) 0.68 10*3/uL 0.33-0.92 EOS x10^3 (test code = 711-2) 0.39 10*3/uL 0.03-0.39 BASO x10^3 (test code = 704-7) 0.03 10*3/uL 0.01-0.07 Lab Interpretation (test code = 26319-5) Abnormal [facility] WITH [id number] 11:06:46* Test Item Value Reference Range Interpretation [...] g/dL 31.6-35.1 L RDW-SD (test code = 83819-9) 52.1 fL 39.0-49.9 H RDW-CV (test code = 788-0) 17.0 % 12.0-15.5 H PLT (test code = 777-3) 170 See_Comment [Automated messa ge] The system which generated this result transmitted reference range: 166 - 358 10*3/?L. The reference range was not used to interpret this result as normal/abnormal. MPV (test code = 20871-2) 10.3 fL 9.5-12.9 NRBC/100 WBC (test code = 0536408606) 0.0 See_Comment [Automated [employer] ssage] The system which generated this result transmitted reference range: 0.0 - 10.0 /100 WBCs. The reference range was not used to interpret this result as normal/abnormal. NRBC x10^3 (test code = 0353704383) See_Comment [Automated messa ge] The system which generated this result transmitted reference range: 10*3/?L. The reference range was not used to interpret this result as normal/abnormal. GRAN MAT (NEUT) % (test code = 770-8) 71.6 % IMM GRAN % (test code = 1469750230) 0.40 % LYMPH % (test code = 736-9) 12.7 % MONO % (test code = 5905-5) 9.5 % EOS % (test code = 713-8) 5.4 % BASO % (test code = 706-2) 0.4 % GRAN MAT x10^3(ANC) (test code = 5957429152) 5.14 10*3/uL 1.88-7.09 IMM GRAN x10^3 (test code = 3309138031) 0.03 10*3/uL 0.00-0.06 LYMPH x10^3 (test code = 731-0) 0.91 10*3/uL 1.32-3.29 L MONO x10^3 (test code = 742-7) 0.68 10*3/uL 0.33-0.92 EOS x10^3 (test code = 711-2) 0.39 10*3/uL 0.03-0.39 BASO x10^3 (test code = 704-7) 0.03 10*3/uL 0.01-0.07 Lab Interpretation (test code = 14415-8) Abnormal [facility] GLUCOSE (AUTOMATED)2023-03-24 01:36:11* Test Item Value Reference Range Interpretation Comme nts POCT GLU (test code = 7267943971) 299 mg/dL 70-110 H Lab Interpretation (test cod e = 68755-0) Abnormal [facility] GLUCOSE (AUTOMATED)2023-03-24 01:36:11* Test Item Value Reference Range Interpretation Comme nts POCT GLU (test code = 5445862557) 299 mg/dL 70-110 H Lab Interpretation (test cod e = 24406-3) Abnormal [facility] GLUCOSE (AUTOMATED)2023-03-23 22:47:21* Test Item Value Reference Range Interpretation Comme nts POCT GLU (test code = 0925382511) 180 mg/dL 70-110 H Lab Interpretation (test cod e = 85300-8) Abnormal [facility] GLUCOSE (AUTOMATED)2023-03-23 22:47:21* Test Item Value Reference Range Interpretation Comme nts POCT GLU (test code = 5844338307) 180 mg/dL 70-110 H Lab Interpretation (test cod e = 45479-0) Abnormal [facility] GLUCOSE (AUTOMATED)2023-03-23 18:44:18* Test Item Value Reference Range Interpretation Comme nts POCT GLU (test code = 9951292280) 247 mg/dL 70-110 H Lab Interpretation (test cod e = 37495-1) Abnormal [facility] GLUCOSE (AUTOMATED)2023-03-23 18:44:18* Test Item Value Reference Range Interpretation Comme nts POCT GLU (test code = 3260723020) 247 mg/dL 70-110 H Lab Interpretation (test cod e = 69775-3) Abnormal [facility] GLUCOSE (AUTOMATED)2023-03-23 13:05:30* Test Item Value Reference Range Interpretation Comme nts POCT GLU (test code = 1851049458) 192 mg/dL 70-110 H Lab Interpretation (test cod e = 21279-3) [facility]2023-[facility]-23 13:05:30* Test Item Value Reference Range Interpretation Comme [facility] POCT GLU (test code = 0600421744) 192 mg/dL 70-110 H Lab Interpretation (test cod e = 81899-0) Abnormal [facility] METABOLIC PANEL (NA, K, CL, CO2, GLUCOSE, BUN, CREATININE, CA)2023-03-23 11:20:33* Test Item Value Reference Range Interpretation Comme [facility] NA (test code = 9846297574) 135 mmol/L 135-145 K (test code = 6430580967) 4.0 mmol/L 3.5-5.0 CL (test code = 7405908854) 101 mmol/L 98-108 CO2 TOTAL (test code = 3340344591) 25 mmol/L 23-31 AGAP (test code = 1694557276) 9 2-16 BUN (test code = 5349322423) 28 mg/dL 7-23 H GLUCOSE (test code = 7810873664) 155 mg/dL 70-110 H CREATININE (test code = 8660930762) 1.50 mg/dL 0.50-1.04 H CALCIUM (test code = 1352712455) 8.2 mg/dL 8.6-10.6 L eGFR (test code = 2072237355) 33.8 mL/min/1.73m2 MAJOR (test code = MAJOR) [...] imaging tests). Lab Interpretation (test code = 91447-9) [facility] 11:20:33* Test Item Value Reference Range Interpretation Comme nts MAGNESIUM (test code = 1321231302) 1.9 mg/dL 1.7-2.4 Lab Interpretation (test cod e = 25036-2) [facility] 11:20:33* Test Item Value Reference Range Interpretation Comme nts PHOSPHORUS (test code = 5682588325) 4.2 mg/dL 2.5-5.0 Lab Interpretation (test cod e = 34017-7) [facility] (NA, K, CL, CO2, GLUCOSE, BUN, CREATININE, CA)2023-03-23 11:20:33* Test Item Value Reference Range Interpretation Comme nts NA (test code = 2974215333) 135 mmol/L 135-145 K (test code = 3058324052) 4.0 mmol/L 3.5-5.0 CL (test code = 7275250197) 101 mmol/L 98-108 CO2 TOTAL (test code = 6970107867) 25 mmol/L 23-31 AGAP (test code = 5916374082) 9 2-16 BUN (test code = 2821446431) 28 mg/dL 7-23 H GLUCOSE (test code = 5500674822) 155 mg/dL 70-110 H CREATININE (test code = 9339478805) 1.50 mg/dL 0.50-1.04 H CALCIUM (test code = 7320518330) 8.2 mg/dL 8.6-10.6 L eGFR (test code = 6867888289) 33.8 mL/min/1.73m2 MAJOR (test code = MAJOR) [...] imaging tests). Lab Interpretation (test code = 47712-6) [facility] 11:20:33* Test Item Value Reference Range Interpretation Comme nts MAGNESIUM (test code = 4999600827) 1.9 mg/dL 1.7-2.4 Lab Interpretation (test cod e = 90432-8) [facility] 11:20:33* Test Item Value Reference Range Interpretation Comme nts PHOSPHORUS (test code = 5242406419) 4.2 mg/dL 2.5-5.0 Lab Interpretation (test cod e = 68654-3) Normal [facility] WITH [id number] 11:06:32* Test Item Value Reference Range Interpretation [...] g/dL 31.6-35.1 L RDW-SD (test code = 95685-9) 53.4 fL 39.0-49.9 H RDW-CV (test code = 788-0) 17.3 % 12.0-15.5 H PLT (test code = 777-3) 190 See_Comment [Automated messa ge] The system which generated this result transmitted reference range: 166 - 358 10*3/?L. The reference range was not used to interpret this result as normal/abnormal. MPV (test code = 30803-6) 10.3 fL 9.5-12.9 NRBC/100 WBC (test code = 9263169024) 0.0 See_Comment [Automated iGo ssage] The system which generated this result transmitted reference range: 0.0 - 10.0 /100 WBCs. The reference range was not used to interpret this result as normal/abnormal. NRBC x10^3 (test code = 3730555776) See_Comment [Automated messa ge] The system which generated this result transmitted reference range: 10*3/?L. The reference range was not used to interpret this result as normal/abnormal. GRAN MAT (NEUT) % (test code = 770-8) 74.7 % IMM GRAN % (test code = 5127697049) 0.40 % LYMPH % (test code = 736-9) 10.7 % MONO % (test code = 5905-5) 8.7 % EOS % (test code = 713-8) 5.1 % BASO % (test code = 706-2) 0.4 % GRAN MAT x10^3(ANC) (test code = 9507869925) 5.88 10*3/uL 1.88-7.09 IMM GRAN x10^3 (test code = 7956265162) 0.03 10*3/uL 0.00-0.06 LYMPH x10^3 (test code = 731-0) 0.84 10*3/uL 1.32-3.29 L MONO x10^3 (test code = 742-7) 0.68 10*3/uL 0.33-0.92 EOS x10^3 (test code = 711-2) 0.40 10*3/uL 0.03-0.39 H BASO x10^3 (test code = 704-7) 0.03 10*3/uL 0.01-0.07 Lab Interpretation (test code = 99780-1) Abnormal [facility] WITH [id number] 11:06:32* Test Item Value Reference Range Interpretation [...] g/dL 31.6-35.1 L RDW-SD (test code = 87283-9) 53.4 fL 39.0-49.9 H RDW-CV (test code = 788-0) 17.3 % 12.0-15.5 H PLT (test code = 777-3) 190 See_Comment [Automated messa ge] The system which generated this result transmitted reference range: 166 - 358 10*3/?L. The reference range was not used to interpret this result as normal/abnormal. MPV (test code = 88226-8) 10.3 fL 9.5-12.9 NRBC/100 WBC (test code = 5379431375) 0.0 See_Comment [Automated iGo ssage] The system which generated this result transmitted reference range: 0.0 - 10.0 /100 WBCs. The reference range was not used to interpret this result as normal/abnormal. NRBC x10^3 (test code = 1521191053) See_Comment [Automated messa ge] The system which generated this result transmitted reference range: 10*3/?L. The reference range was not used to interpret this result as normal/abnormal. GRAN MAT (NEUT) % (test code = 770-8) 74.7 % IMM GRAN % (test code = 0626917518) 0.40 % LYMPH % (test code = 736-9) 10.7 % MONO % (test code = 5905-5) 8.7 % EOS % (test code = 713-8) 5.1 % BASO % (test code = 706-2) 0.4 % GRAN MAT x10^3(ANC) (test code = 6227748517) 5.88 10*3/uL 1.88-7.09 IMM GRAN x10^3 (test code = 4688760308) 0.03 10*3/uL 0.00-0.06 LYMPH x10^3 (test code = 731-0) 0.84 10*3/uL 1.32-3.29 L MONO x10^3 (test code = 742-7) 0.68 10*3/uL 0.33-0.92 EOS x10^3 (test code = 711-2) 0.40 10*3/uL 0.03-0.39 H BASO x10^3 (test code = 704-7) 0.03 10*3/uL 0.01-0.07 Lab Interpretation (test code = 73733-6) Abnormal [facility] GLUCOSE (AUTOMATED)2023-03-23 01:41:44* Test Item Value Reference Range Interpretation Comme nts POCT GLU (test code = 3647846708) 220 mg/dL 70-110 H Lab Interpretation (test cod e = 83640-3) Abnormal [facility] GLUCOSE (AUTOMATED)2023-03-23 01:41:44* Test Item Value Reference Range Interpretation Comme nts POCT GLU (test code = 7092992464) 220 mg/dL 70-110 H Lab Interpretation (test cod e = 80899-6) Abnormal [facility] GLUCOSE (AUTOMATED)2023-03-22 22:39:32* Test Item Value Reference Range Interpretation Comme nts POCT GLU (test code = 7729582851) 258 mg/dL 70-110 H Notified Provide r Lab Interpretation (test code = 42300-1) Abnormal [facility] GLUCOSE (AUTOMATED)2023-03-22 22:39:32* Test Item Value Reference Range Interpretation Comme nts POCT GLU (test code = 9617434831) 258 mg/dL 70-110 H Notified Provide r Lab Interpretation (test code = 86586-8) Abnormal [facility] GLUCOSE (AUTOMATED)2023-03-22 17:10:13* Test Item Value Reference Range Interpretation Comme nts POCT GLU (test code = 1202112014) 184 mg/dL 70-110 H Lab Interpretation (test cod e = 37915-9) Abnormal [facility] GLUCOSE (AUTOMATED)2023-03-22 17:10:13* Test Item Value Reference Range Interpretation Comme nts POCT GLU (test code = 8184964414) 184 mg/dL 70-110 H Lab Interpretation (test cod e = 75993-8) Abnormal [facility] GLUCOSE (AUTOMATED)2023-03-22 17:10:13* Test Item Value Reference Range Interpretation Comme nts POCT GLU (test code = 4695121590) 184 mg/dL 70-110 H Lab Interpretation (test cod e = 96870-4) Abnormal [facility] GLUCOSE (AUTOMATED)2023-03-22 13:06:14* Test Item Value Reference Range Interpretation Comme nts POCT GLU (test code = 6563377198) 167 mg/dL 70-110 H Lab Interpretation (test cod e = 89449-2) Abnormal [facility] GLUCOSE (AUTOMATED)2023-03-22 13:06:14* Test Item Value Reference Range Interpretation Comme nts POCT GLU (test code = 0578757832) 167 mg/dL 70-110 H Lab Interpretation (test cod e = 94380-3) Abnormal [facility] GLUCOSE (AUTOMATED)2023-03-22 13:06:14* Test Item Value Reference Range Interpretation Comme nts POCT GLU (test code = 0371544852) 167 mg/dL 70-110 H Lab Interpretation (test cod e = 08364-4) Abnormal [facility] GLUCOSE (AUTOMATED)2023-03-22 10:45:15* Test Item Value Reference Range Interpretation Comme nts POCT GLU (test code = 8185513327) 169 mg/dL 70-110 H Lab Interpretation (test cod e = 61945-8) Abnormal [facility] GLUCOSE (AUTOMATED)2023-03-22 10:45:15* Test Item Value Reference Range Interpretation Comme nts POCT GLU (test code = 9910061977) 169 mg/dL 70-110 H Lab Interpretation (test cod e = 70541-5) Abnormal [facility] GLUCOSE (AUTOMATED)2023-03-22 10:45:15* Test Item Value Reference Range Interpretation Comme nts POCT GLU (test code = 4433212675) 169 mg/dL 70-110 H Lab Interpretation (test cod e = 70055-0) [facility] [id number] 10:15:51* Test Item Value Reference Range Interpretation Comme nts PHOSPHORUS (test code = 3472324440) 4.9 mg/dL 2.5-5.0 Lab Interpretation (test cod e = 39467-8) Normal [facility] [id number] 10:15:51* Test Item Value Reference Range Interpretation Comme nts PHOSPHORUS (test code = 9694400991) 4.9 mg/dL 2.5-5.0 Lab Interpretation (test cod e = 52122-2) [facility] [id number] 10:15:51* Test Item Value Reference Range Interpretation Comme nts PHOSPHORUS (test code = 5002780932) 4.9 mg/dL 2.5-5.0 Lab Interpretation (test cod e = 38518-4) Normal [facility] Metabolic Panel (NA, K, CL, CO2, GLUCOSE, BUN, CREATININE, CA)2023-03-22 10:15:50* Test Item Value Reference Range Interpretation Comme nts NA (test code = 5729007598) 138 mmol/L 135-145 K (test code = 9769704227) 5.0 mmol/L 3.5-5.0 CL (test code = 0889171939) 102 mmol/L 98-108 CO2 TOTAL (test code = 3803347755) 27 mmol/L 23-31 AGAP (test code = 8489677090) 9 2-16 BUN (test code = 6041864614) 32 mg/dL 7-23 H GLUCOSE (test code = 4136013754) 174 mg/dL 70-110 H CREATININE (test code = 2284800361) 1.40 mg/dL 0.50-1.04 H CALCIUM (test code = 4970684993) 8.2 mg/dL 8.6-10.6 L eGFR (test code = 2560523040) 36.6 mL/min/1.73m2 MAJOR (test code = MAJOR) [...] imaging tests). Lab Interpretation (test code = 23945-9) [facility] [id number] 10:15:50* Test Item Value Reference Range Interpretation Comme nts MAGNESIUM (test code = 6258805632) 2.1 mg/dL 1.7-2.4 Lab Interpretation (test cod e = 28950-2) [facility] (NA, K, CL, CO2, GLUCOSE, BUN, CREATININE, CA)2023-03-22 10:15:50* Test Item Value Reference Range Interpretation Comme nts NA (test code = 8806018005) 138 mmol/L 135-145 K (test code = 2409051548) 5.0 mmol/L 3.5-5.0 CL (test code = 4959156847) 102 mmol/L 98-108 CO2 TOTAL (test code = 6356827052) 27 mmol/L 23-31 AGAP (test code = 6007266647) 9 2-16 BUN (test code = 4825581980) 32 mg/dL 7-23 H GLUCOSE (test code = 9805891445) 174 mg/dL 70-110 H CREATININE (test code = 4598882270) 1.40 mg/dL 0.50-1.04 H CALCIUM (test code = 6011139756) 8.2 mg/dL 8.6-10.6 L eGFR (test code = 0924113444) 36.6 mL/min/1.73m2 MAJOR (test code = MAJOR) [...] imaging tests). Lab Interpretation (test code = 25245-0) [facility] Huwso4065-42-97 10:15:50* Test Item Value Reference Range Interpretation Comme nts MAGNESIUM (test code = 8933531914) 2.1 mg/dL 1.7-2.4 Lab Interpretation (test cod e = 32687-9) [facility] (NA, K, CL, CO2, GLUCOSE, BUN, CREATININE, CA)2023-03-22 10:15:50* Test Item Value Reference Range Interpretation Comme nts NA (test code = 3444669478) 138 mmol/L 135-145 K (test code = 2583521105) 5.0 mmol/L 3.5-5.0 CL (test code = 6530851884) 102 mmol/L 98-108 CO2 TOTAL (test code = 5650964006) 27 mmol/L 23-31 AGAP (test code = 9558217638) 9 2-16 BUN (test code = 9503184395) 32 mg/dL 7-23 H GLUCOSE (test code = 1430465864) 174 mg/dL 70-110 H CREATININE (test code = 8665324140) 1.40 mg/dL 0.50-1.04 H CALCIUM (test code = 9475760759) 8.2 mg/dL 8.6-10.6 L eGFR (test code = 2237961426) 36.6 mL/min/1.73m2 MAJOR (test code = MAJOR) [...] imaging tests). Lab Interpretation (test code = 22188-2) [facility]normal [facility] Rock[facility] Kcgmz7453-16-60 10:15:50* Test Item Value Reference Range Interpretation Comme nts MAGNESIUM (test code = 8858142714) 2.1 mg/dL 1.7-2.4 Lab Interpretation (test cod e = 00982-4) Normal [facility] with Jhhlgusojyje9622-53-14 09:47:50* Test Item Value Reference Range Interpretation [...] g/dL 31.6-35.1 L RDW-SD (test code = 39450-1) 51.5 fL 39.0-49.9 H RDW-CV (test code = 788-0) 16.7 % 12.0-15.5 H PLT (test code = 777-3) 184 See_Comment [Automated messa ge] The system which generated this result transmitted reference range: 166 - 358 10*3/?L. The reference range was not used to interpret this result as normal/abnormal. MPV (test code = 60508-3) 10.1 fL 9.5-12.9 NRBC/100 WBC (test code = 9733936704) 0.0 See_Comment [Automated me ssage] The system which generated this result transmitted reference range: 0.0 - 10.0 /100 WBCs. The reference range was not used to interpret this result as normal/abnormal. NRBC x10^3 (test code = 3610750001) See_Comment [Automated messa ge] The system which generated this result transmitted reference range: 10*3/?L. The reference range was not used to interpret this result as normal/abnormal. GRAN MAT (NEUT) % (test code = 770-8) 84.9 % IMM GRAN % (test code = 8129701018) 0.50 % LYMPH % (test code = 736-9) 6.1 % MONO % (test code = 5905-5) 6.1 % EOS % (test code = 713-8) 2.0 % BASO % (test code = 706-2) 0.4 % GRAN MAT x10^3(ANC) (test code = 5878628045) 8.84 10*3/uL 1.88-7.09 H IMM GRAN x10^3 (test code = 7978799361) 0.05 10*3/uL 0.00-0.06 LYMPH x10^3 (test code = 731-0) 0.64 10*3/uL 1.32-3.29 L MONO x10^3 (test code = 742-7) 0.64 10*3/uL 0.33-0.92 EOS x10^3 (test code = 711-2) 0.21 10*3/uL 0.03-0.39 BASO x10^3 (test code = 704-7) 0.04 10*3/uL 0.01-0.07 Lab Interpretation (test code = 54932-7) Abnormal [facility] with Ctlbkfpfkbsq2185-48-25 09:47:50* Test Item Value Reference Range Interpretation [...] g/dL 31.6-35.1 L RDW-SD (test code = 20136-8) 51.5 fL 39.0-49.9 H RDW-CV (test code = 788-0) 16.7 % 12.0-15.5 H PLT (test code = 777-3) 184 See_Comment [Automated [employer]] The system which generated this result transmitted reference range: 166 - 358 10*3/?L. The reference range was not used to interpret this result as normal/abnormal. MPV (test code = 12838-0) 10.1 fL 9.5-12.9 NRBC/100 WBC (test code = 9335916029) 0.0 See_Comment [Automated iGo ssage] The system which generated this result transmitted reference range: 0.0 - 10.0 /100 WBCs. The reference range was not used to interpret this result as normal/abnormal. NRBC x10^3 (test code = 4510542293) See_Comment [Automated [employer]] The system which generated this result transmitted reference range: 10*3/?L. The reference range was not used to interpret this result as normal/abnormal. GRAN MAT (NEUT) % (test code = 770-8) 84.9 % IMM GRAN % (test code = 5036241748) 0.50 % LYMPH % (test code = 736-9) 6.1 % MONO % (test code = 5905-5) 6.1 % EOS % (test code = 713-8) 2.0 % BASO % (test code = 706-2) 0.4 % GRAN MAT x10^3(ANC) (test code = 8753249401) 8.84 10*3/uL 1.88-7.09 H IMM GRAN x10^3 (test code = 4111930784) 0.05 10*3/uL 0.00-0.06 LYMPH x10^3 (test code = 731-0) 0.64 10*3/uL 1.32-3.29 L MONO x10^3 (test code = 742-7) 0.64 10*3/uL 0.33-0.92 EOS x10^3 (test code = 711-2) 0.21 10*3/uL 0.03-0.39 BASO x10^3 (test code = 704-7) 0.04 10*3/uL 0.01-0.07 Lab Interpretation (test code = 98467-7) Abnormal [facility] with Zqsihdxyoytx0461-61-23 09:47:50* Test Item Value Reference Range Interpretation Comme nts WBC (test code = 6690-2) 10.42 See_Comment [Automated [employer]] The system which generated this result transmitted reference range: 4.30 - 11.10 10*3/?L. The reference range was not used to interpret this result as normal/abnormal. RBC (test code = 789-8) 3.21 See_Comment L [Automated [employer]] The system which generated this result [...] g/dL 31.6-35.1 L RDW-SD (test code = 42510-8) 51.5 fL 39.0-49.9 H RDW-CV (test code = 788-0) 16.7 % 12.0-15.5 H PLT (test code = 777-3) 184 See_Comment [Automated [employer]] The system which generated this result transmitted reference range: 166 - 358 10*3/?L. The reference range was not used to interpret this result as normal/abnormal. MPV (test code = 98040-8) 10.1 fL 9.5-12.9 NRBC/100 WBC (test code = 3365253679) 0.0 See_Comment [Automated me ssage] The system which generated this result transmitted reference range: 0.0 - 10.0 /100 WBCs. The reference range was not used to interpret this result as normal/abnormal. NRBC x10^3 (test code = 2223924277) See_Comment [Automated messa ge] The system which generated this result transmitted reference range: 10*3/?L. The reference range was not used to interpret this result as normal/abnormal. GRAN MAT (NEUT) % (test code = 770-8) 84.9 % IMM GRAN % (test code = 1817592763) 0.50 % LYMPH % (test code = 736-9) 6.1 % MONO % (test code = 5905-5) 6.1 % EOS % (test code = 713-8) 2.0 % BASO % (test code = 706-2) 0.4 % GRAN MAT x10^3(ANC) (test code = 6379733153) 8.84 10*3/uL 1.88-7.09 H IMM GRAN x10^3 (test code = 1653993477) 0.05 10*3/uL 0.00-0.06 LYMPH x10^3 (test code = 731-0) 0.64 10*3/uL 1.32-3.29 L MONO x10^3 (test code = 742-7) 0.64 10*3/uL 0.33-0.92 EOS x10^3 (test code = 711-2) 0.21 10*3/uL 0.03-0.39 BASO x10^3 (test code = 704-7) 0.04 10*3/uL 0.01-0.07 Lab Interpretation (test code = 38925-3) Abnormal [facility] GLUCOSE (AUTOMATED)2023-03-22 09:30:13* Test Item Value Reference Range Interpretation Comme [facility] POCT GLU (test code = 5960033278) 183 mg/dL 70-110 H Lab Interpretation (test cod e = 20239-9) Abnormal [facility] GLUCOSE (AUTOMATED)2023-03-22 09:30:13* Test Item Value Reference Range Interpretation Comme [facility] POCT GLU (test code = 5645078283) 183 mg/dL 70-110 H Lab Interpretation (test cod e = 73451-1) [facility]23-[facility]-22 09:30:13* Test Item Value Reference Range Interpretation Comme [facility] POCT GLU (test code = 0551590277) 183 mg/dL 70-110 H Lab Interpretation (test cod e = 91380-0) [facility] + LACTIC [id number] 07:16:53* Test Item Value Reference Range Interpretation Comme nts PH (test code = 7711140905) 7.30 7.32-7.42 L PCO2 JARRET (test code = 8525432214) 50 See_Comment [Automated messa ge] The system which generated this result transmitted reference range: 41 - 51 mmHg. The reference range was not used to interpret this result as normal/abnormal. PO2 JARRET (test code = 1052264792) 39 See_Comment [Automated messa ge] The system which generated this result transmitted reference range: 25 - 40 mmHg. The reference range was not used to interpret this result as normal/abnormal. HCO3 JARRET (test code = 3533811576) 24 See_Comment [Automated messa ge] The system which generated this result transmitted reference range: 24 - 28 mEq/L. The reference range was not used to interpret this result as normal/abnormal. AC VBE(BEAKER) (test code = 4791315370) -2.3 mEq/L THB JARRET (test code = 0790109593) 9.6 g/dL 12.0-16.0 L %O2HB JARRET (test code = 6206371701) 69.7 % 52.0-63.0 H %COHB JARRET (test code = 8729887695) 1.2 % 0.0-1.5 %METHB JARRET (test code = 8629820037) 0.3 % 0.4-1.5 L VOL%O2 JARRET (test code = 8628583947) 9.4 % 6.0-12.0 NA (test code = 7716583761) 126 mmol/L 135-145 L K+ (test code = 2087081584) 5.0 mmol/L 3.5-5.0 AC CA IONZ (test code = 8841697821) 4.40 mg/dL 4.50-5.30 L GLUCOSE (test code = 9936342349) 195 mg/dL 70-110 H LACTIC ACID (test code = 1502358809) 1.96 mmol/L 0.50-2.20 Lab Interpretation (test code = 99905-4) [facility] + LACTIC [id number] 07:16:53* Test Item Value Reference Range Interpretation Comme nts PH (test code = 8456348805) 7.30 7.32-7.42 L PCO2 JARRET (test code = 7961415327) 50 See_Comment [Automated messa ge] The system which generated this result transmitted reference range: 41 - 51 mmHg. The reference range was not used to interpret this result as normal/abnormal. PO2 JARRET (test code = 1130009294) 39 See_Comment [Automated messa ge] The system which generated this result transmitted reference range: 25 - 40 mmHg. The reference range was not used to interpret this result as normal/abnormal. HCO3 JARRET (test code = 3876844861) 24 See_Comment [Automated messa ge] The system which generated this result transmitted reference range: 24 - 28 mEq/L. The reference range was not used to interpret this result as normal/abnormal. AC VBE(BEAKER) (test code = 6863191726) -2.3 mEq/L THB JARRET (test code = 1168469502) 9.6 g/dL 12.0-16.0 L %O2HB JARRET (test code = 9489731420) 69.7 % 52.0-63.0 H %COHB JARRET (test code = 9209319841) 1.2 % 0.0-1.5 %METHB JARRTE (test code = 7660956053) 0.3 % 0.4-1.5 L VOL%O2 JARRET (test code = 6004169676) 9.4 % 6.0-12.0 NA (test code = 0849996480) 126 mmol/L 135-145 L K+ (test code = 7324640190) 5.0 mmol/L 3.5-5.0 AC CA IONZ (test code = 2356884580) 4.40 mg/dL 4.50-5.30 L GLUCOSE (test code = 1907294478) 195 mg/dL 70-110 H LACTIC ACID (test code = 2695416155) 1.96 mmol/L 0.50-2.20 Lab Interpretation (test code = 63906-0) [facility] + LACTIC [id number] 07:16:53* Test Item Value Reference Range Interpretation Comme nts PH (test code = 4240815736) 7.30 7.32-7.42 L PCO2 JARRET (test code = 3143209443) 50 See_Comment [Automated messa ge] The system which generated this result transmitted reference range: 41 - 51 mmHg. The reference range was not used to interpret this result as normal/abnormal. PO2 JARRET (test code = 5513675372) 39 See_Comment [Automated messa ge] The system which generated this result transmitted reference range: 25 - 40 mmHg. The reference range was not used to interpret this result as normal/abnormal. HCO3 JARRET (test code = 9997244253) 24 See_Comment [Automated messa ge] The system which generated this result transmitted reference range: 24 - 28 mEq/L. The reference range was not used to interpret this result as normal/abnormal. AC VBE(BEAKER) (test code = 0065162871) -2.3 mEq/L THB JARRET (test code = 5401407426) 9.6 g/dL 12.0-16.0 L %O2HB JARRET (test code = 2617914439) 69.7 % 52.0-63.0 H %COHB JARRET (test code = 8079326607) 1.2 % 0.0-1.5 %METHB JARRET (test code = 1661245321) 0.3 % 0.4-1.5 L VOL%O2 JARRET (test code = 5405233178) 9.4 % 6.0-12.0 NA (test code = 4867867073) 126 mmol/L 135-145 L K+ (test code = 2671725125) 5.0 mmol/L 3.5-5.0 AC CA IONZ (test code = 2225524396) 4.40 mg/dL 4.50-5.30 L GLUCOSE (test code = 2556925289) 195 mg/dL 70-110 H LACTIC ACID (test code = 0528578467) 1.96 mmol/L 0.50-2.20 Lab Interpretation (test code = 07616-0) Abnormal [facility] GLUCOSE (AUTOMATED)2023-03-22 05:09:14* Test Item Value Reference Range Interpretation Comme nts POCT GLU (test code = 4737714693) 244 mg/dL 70-110 H Lab Interpretation (test cod e = 54867-8) Abnormal [facility] GLUCOSE (AUTOMATED)2023-03-22 05:09:14* Test Item Value Reference Range Interpretation Comme nts POCT GLU (test code = 1977917805) 244 mg/dL 70-110 H Lab Interpretation (test cod e = 14452-6) Abnormal [facility] GLUCOSE (AUTOMATED)2023-03-22 05:09:14* Test Item Value Reference Range Interpretation Comme nts POCT GLU (test code = 4121880795) 244 mg/dL 70-110 H Lab Interpretation (test cod e = 69669-3) [facility] + LACTIC [id number] 03:14:53* Test Item Value Reference Range Interpretation Comme nts PH (test code = 3525548774) 7.32 7.32-7.42 PCO2 JARRET (test code = 9053934132) 55 See_Comment H [Automated messa ge] The system which generated this result transmitted reference range: 41 - 51 mmHg. The reference range was not used to interpret this result as normal/abnormal. PO2 JARRET (test code = 2262880677) 48 See_Comment H [Automated messa ge] The system which generated this result transmitted reference range: 25 - 40 mmHg. The reference range was not used to interpret this result as normal/abnormal. HCO3 JARRET (test code = 7026227680) 27 See_Comment [Automated messa ge] The system which generated this result transmitted reference range: 24 - 28 mEq/L. The reference range was not used to interpret this result as normal/abnormal. AC VBE(BEAKER) (test code = 3624684167) 0.6 mEq/L THB JARRET (test code = 1257019319) 10.9 g/dL 12.0-16.0 L %O2HB JARRET (test code = 2374086262) 80.9 % 52.0-63.0 H %COHB JRARET (test code = 3340387663) 1.4 % 0.0-1.5 %METHB JARRET (test code = 9977186310) 0.3 % 0.4-1.5 L VOL%O2 JARRET (test code = 8400384701) 12.4 % 6.0-12.0 H NA (test code = 7898481818) 131 mmol/L 135-145 L K+ (test code = 5953223915) 4.8 mmol/L 3.5-5.0 AC CA IONZ (test code = 2356145982) 4.40 mg/dL 4.50-5.30 L GLUCOSE (test code = 6046832013) 257 mg/dL 70-110 H LACTIC ACID (test code = 8517865012) 2.26 mmol/L 0.50-2.20 H Lab Interpretation (test code = 40931-0) [facility] L[facility]IC [id number] 03:14:53* Test Item Value Reference Range Interpretation Comme nts PH (test code = 3085949515) 7.32 7.32-7.42 PCO2 JARRET (test code = 8988364105) 55 See_Comment H [Automated messa ge] The system which generated this result transmitted reference range: 41 - 51 mmHg. The reference range was not used to interpret this result as normal/abnormal. PO2 JARRET (test code = 2476382036) 48 See_Comment H [Automated messa ge] The system which generated this result transmitted reference range: 25 - 40 mmHg. The reference range was not used to interpret this result as normal/abnormal. HCO3 JARRET (test code = 1200903582) 27 See_Comment [Automated messa ge] The system which generated this result transmitted reference range: 24 - 28 mEq/L. The reference range was not used to interpret this result as normal/abnormal. AC VBE(BEAKER) (test code = 9448159247) 0.6 mEq/L THB JARRET (test code = 8146156686) 10.9 g/dL 12.0-16.0 L %O2HB JARRET (test code = 0905904296) 80.9 % 52.0-63.0 H %COHB JARRET (test code = 7051483485) 1.4 % 0.0-1.5 %METHB JARRET (test code = 4423752250) 0.3 % 0.4-1.5 L VOL%O2 JARRET (test code = 1257062203) 12.4 % 6.0-12.0 H NA (test code = 1915088064) 131 mmol/L 135-145 L K+ (test code = 1852362948) 4.8 mmol/L 3.5-5.0 AC CA IONZ (test code = 3922175490) 4.40 mg/dL 4.50-5.30 L GLUCOSE (test code = 2001787425) 257 mg/dL 70-110 H LACTIC ACID (test code = 3110600555) 2.26 mmol/L 0.50-2.20 H Lab Interpretation (test code = 15652-6) [facility] LACTIC [id number] 03:14:53* Test Item Value Reference Range Interpretation Comme nts PH (test code = 5884286521) 7.32 7.32-7.42 PCO2 JARRET (test code = 9212026101) 55 See_Comment H [Automated messa ge] The system which generated this result transmitted reference range: 41 - 51 mmHg. The reference range was not used to interpret this result as normal/abnormal. PO2 JARRET (test code = 8770371847) 48 See_Comment H [Automated messa ge] The system which generated this result transmitted reference range: 25 - 40 mmHg. The reference range was not used to interpret this result as normal/abnormal. HCO3 JARRET (test code = 3259159454) 27 See_Comment [Automated messa ge] The system which generated this result transmitted reference range: 24 - 28 mEq/L. The reference range was not used to interpret this result as normal/abnormal. AC VBE(BEAKER) (test code = 0233470990) 0.6 mEq/L THB JARRET (test code = 9803046464) 10.9 g/dL 12.0-16.0 L %O2HB JARRET (test code = 3297860850) 80.9 % 52.0-63.0 H %COHB JARRET (test code = 9919850444) 1.4 % 0.0-1.5 %METHB JARRET (test code = 4558310690) 0.3 % 0.4-1.5 L VOL%O2 JARRET (test code = 2008162408) 12.4 % 6.0-12.0 H NA (test code = 8616433891) 131 mmol/L 135-145 L K+ (test code = 6721362824) 4.8 mmol/L 3.5-5.0 AC CA IONZ (test code = 6149677313) 4.40 mg/dL 4.50-5.30 L GLUCOSE (test code = 0069669038) 257 mg/dL 70-110 H LACTIC ACID (test code = 9149946319) 2.26 mmol/L 0.50-2.20 H Lab Interpretation (test code = 59878-4) [facility] + Lactic [id number] 00:38:05* Test Item Value Reference Range Interpretation Comme nts PH (test code = 2) 7.34 7.35-7.45 L PCO2 (test code = 1369876204) 52 See_Comment H [Automated messa ge] The system which generated this result transmitted reference range: 35 - 45 mmHg. The reference range was not used to interpret this result as normal/abnormal. PO2 (test code = 9583639800) 131 See_Comment H [Automated messa ge] The system which generated this result transmitted reference range: 80 - 100 mmHg. The reference range was not used to interpret this result as normal/abnormal. HCO3 (test code = 7809005604) 27 See_Comment H [Automated messa ge] The system which generated this result transmitted reference range: 22 - 26 mEq/L. The reference range was not used to interpret this result as normal/abnormal. BE (test code = 8395221317) 0.8 See_Comment [Automated messa ge] The system which generated this result transmitted reference range: -3.0 - 3.0 mEq/L. The reference range was not used to interpret this result as normal/abnormal. THB (test code = 5539633919) 13.3 g/dL 12.0-16.0 %O2HB (test code = 0137654248) 97.3 % 94.0-99.0 %COHB ART (test code = 7939772405) 0.4 % 0.0-1.5 %METHB ART (test code = 6054461383) 0.3 % 0.4-1.5 L VOL%O2 ART (test code = 4408136648) 18.4 % 15.0-23.0 NA (test code = 2108337263) 135 mmol/L 135-145 K+ (test code = 8947408590) 4.9 mmol/L 3.5-5.0 AC CA IONZ (test code = 7469040493) 4.50 mg/dL 4.50-5.30 GLUCOSE (test code = 8362729472) 285 mg/dL 70-110 H LACTIC ACID (test code = 5259209643) 1.77 mmol/L 0.50-2.20 QUES Lab Interpretation (test code = 36507-6) [facility] + Lactic [id number] 00:38:05* Test Item Value Reference Range Interpretation Comme nts PH (test code = 2) 7.34 7.35-7.45 L PCO2 (test code = 0308345930) 52 See_Comment H [Automated messa ge] The system which generated this result transmitted reference range: 35 - 45 mmHg. The reference range was not used to interpret this result as normal/abnormal. PO2 (test code = 2393198961) 131 See_Comment H [Automated messa ge] The system which generated this result transmitted reference range: 80 - 100 mmHg. The reference range was not used to interpret this result as normal/abnormal. HCO3 (test code = 3743132908) 27 See_Comment H [Automated messa ge] The system which generated this result transmitted reference range: 22 - 26 mEq/L. The reference range was not used to interpret this result as normal/abnormal. BE (test code = 4160367456) 0.8 See_Comment [Automated messa ge] The system which generated this result transmitted reference range: -3.0 - 3.0 mEq/L. The reference range was not used to interpret this result as normal/abnormal. THB (test code = 7611739823) 13.3 g/dL 12.0-16.0 %O2HB (test code = 1112415729) 97.3 % 94.0-99.0 %COHB ART (test code = 4221112041) 0.4 % 0.0-1.5 %METHB ART (test code = 4220637847) 0.3 % 0.4-1.5 L VOL%O2 ART (test code = 9333824884) 18.4 % 15.0-23.0 NA (test code = 8503890620) 135 mmol/L 135-145 K+ (test code = 5363542487) 4.9 mmol/L 3.5-5.0 AC CA IONZ (test code = 5610044422) 4.50 mg/dL 4.50-5.30 GLUCOSE (test code = 8797430278) 285 mg/dL 70-110 H LACTIC ACID (test code = 6818494390) 1.77 mmol/L 0.50-2.20 QUES Lab Interpretation (test code = 66601-5) [facility] + Lactic [id number] 00:38:05* Test Item Value Reference Range Interpretation Comme nts PH (test code = 2) 7.34 7.35-7.45 L PCO2 (test code = 6840116302) 52 See_Comment H [Automated messa ge] The system which generated this result transmitted reference range: 35 - 45 mmHg. The reference range was not used to interpret this result as normal/abnormal. PO2 (test code = 2531258489) 131 See_Comment H [Automated messa ge] The system which generated this result transmitted reference range: 80 - 100 mmHg. The reference range was not used to interpret this result as normal/abnormal. HCO3 (test code = 9101969910) 27 See_Comment H [Automated messa ge] The system which generated this result transmitted reference range: 22 - 26 mEq/L. The reference range was not used to interpret this result as normal/abnormal. BE (test code = 0466448582) 0.8 See_Comment [Automated messa ge] The system which generated this result transmitted reference range: -3.0 - 3.0 mEq/L. The reference range was not used to interpret this result as normal/abnormal. THB (test code = 8204679836) 13.3 g/dL 12.0-16.0 %O2HB (test code = 4688139523) 97.3 % 94.0-99.0 %COHB ART (test code = 9691544766) 0.4 % 0.0-1.5 %METHB ART (test code = 7519236939) 0.3 % 0.4-1.5 L VOL%O2 ART (test code = 6757363951) 18.4 % 15.0-23.0 NA (test code = 5563764646) 135 mmol/L 135-145 K+ (test code = 2271976281) 4.9 mmol/L 3.5-5.0 AC CA IONZ (test code = 6747626193) 4.50 mg/dL 4.50-5.30 GLUCOSE (test code = 0067260715) 285 mg/dL 70-110 H LACTIC ACID (test code = 3572345089) 1.77 mmol/L 0.50-2.20 QUES Lab Interpretation (test code = 83068-4) [facility]NA, K, CL, CO2, GLUCOSE, BUN, CREATININE, CA)2023-03-21 22:04:31* Test Item Value Reference Range Interpretation Comme nts NA (test code = 7264709259) 137 mmol/L 135-145 K (test code = 1068945860) 5.1 mmol/L 3.5-5.0 H CL (test code = 4910823659) 103 mmol/L 98-108 CO2 TOTAL (test code = 7150795489) 25 mmol/L 23-31 AGAP (test code = 7411874616) 9 2-16 BUN (test code = 6795488020) 31 mg/dL 7-23 H GLUCOSE (test code = 8416077494) 337 mg/dL 70-110 H CREATININE (test code = 6170985957) 1.40 mg/dL 0.50-1.04 H CALCIUM (test code = 2100215283) 8.6 mg/dL 8.6-10.6 eGFR (test code = 3958352100) 36.6 mL/min/1.73m2 MAJOR (test code = MAJOR) [...] imaging tests). Lab Interpretation (test code = 72255-4) [facility] 22:04:31* Test Item Value Reference Range Interpretation Comme nts MAGNESIUM (test code = 2747623136) 2.2 mg/dL 1.7-2.4 Lab Interpretation (test cod e = 45676-4) Normal [facility] 22:04:31* Test Item Value Reference Range Interpretation Comme nts PHOSPHORUS (test code = 9961451690) 5.4 mg/dL 2.5-5.0 H Lab Interpretation (test cod e = 09379-8) [facility] (NA, K, CL, CO2, GLUCOSE, BUN, CREATININE, CA)2023-03-21 22:04:31* Test Item Value Reference Range Interpretation Comme nts NA (test code = 5869508494) 137 mmol/L 135-145 K (test code = 1509609052) 5.1 mmol/L 3.5-5.0 H CL (test code = 5822749584) 103 mmol/L 98-108 CO2 TOTAL (test code = 8858791236) 25 mmol/L 23-31 AGAP (test code = 4984454060) 9 2-16 BUN (test code = 4668843915) 31 mg/dL 7-23 H GLUCOSE (test code = 3971766388) 337 mg/dL 70-110 H CREATININE (test code = 9050470846) 1.40 mg/dL 0.50-1.04 H CALCIUM (test code = 3877483071) 8.6 mg/dL 8.6-10.6 eGFR (test code = 9754733711) 36.6 mL/min/1.73m2 MAJOR (test code = MAJOR) [...] imaging tests). Lab Interpretation (test code = 23095-4) [facility] 22:04:31* Test Item Value Reference Range Interpretation Comme nts MAGNESIUM (test code = 9998325427) 2.2 mg/dL 1.7-2.4 Lab Interpretation (test cod e = 12321-5) [facility]18 22:04:31* Test Item Value Reference Range Interpretation Comme nts PHOSPHORUS (test code = 9716647646) 5.4 mg/dL 2.5-5.0 H Lab Interpretation (test cod e = 81884-8) [facility] (NA, K, CL, CO2, GLUCOSE, BUN, CREATININE, CA)2023-03-21 22:04:31* Test Item Value Reference Range Interpretation Comme nts NA (test code = 5823424636) 137 mmol/L 135-145 K (test code = 7891774782) 5.1 mmol/L 3.5-5.0 H CL (test code = 2489470684) 103 mmol/L 98-108 CO2 TOTAL (test code = 5424889216) 25 mmol/L 23-31 AGAP (test code = 2423382739) 9 2-16 BUN (test code = 4878633954) 31 mg/dL 7-23 H GLUCOSE (test code = 1239536146) 337 mg/dL 70-110 H CREATININE (test code = 3506427637) 1.40 mg/dL 0.50-1.04 H CALCIUM (test code = 3880519043) 8.6 mg/dL 8.6-10.6 eGFR (test code = 4903156014) 36.6 mL/min/1.73m2 MAJOR (test code = MAJOR) [...] imaging tests). Lab Interpretation (test code = 29696-9) [facility] 22:04:31* Test Item Value Reference Range Interpretation Comme nts MAGNESIUM (test code = 6681793907) 2.2 mg/dL 1.7-2.4 Lab Interpretation (test cod e = 80597-7) [facility]23[facility]18 22:04:31* Test Item Value Reference Range Interpretation Comme nts PHOSPHORUS (test code = 3362001170) 5.4 mg/dL 2.5-5.0 H Lab Interpretation (test cod e = 43634-4) Abnormal [facility] GLUCOSE (AUTOMATED)2023-03-21 21:42:12* Test Item Value Reference Range Interpretation Comme nts POCT GLU (test code = 8843307868) 337 mg/dL 70-110 H Lab Interpretation (test cod e = 40105-5) Abnormal [facility] GLUCOSE (AUTOMATED)2023-03-21 21:42:12* Test Item Value Reference Range Interpretation Comme nts POCT GLU (test code = 9502105935) 337 mg/dL 70-110 H Lab Interpretation (test cod e = 40007-7) Abnormal [facility] GLUCOSE (AUTOMATED)2023-03-21 21:42:12* Test Item Value Reference Range Interpretation Comme nts POCT GLU (test code = 3484470996) 337 mg/dL 70-110 H Lab Interpretation (test cod e = 15915-6) [facility]normal [facility] + Lactic [id number] 21:22:42* Test Item Value Reference Range Interpretation Comme nts PH (test code = 2) 7.21 7.35-7.45 L PCO2 (test code = 7943726264) 65 See_Comment H [Automated messa ge] The system which generated this result transmitted reference range: 35 - 45 mmHg. The reference range was not used to interpret this result as normal/abnormal. PO2 (test code = 7698309366) 79 See_Comment L [Automated messa ge] The system which generated this result transmitted reference range: 80 - 100 mmHg. The reference range was not used to interpret this result as normal/abnormal. HCO3 (test code = 0709974069) 25 See_Comment [Automated messa ge] The system which generated this result transmitted reference range: 22 - 26 mEq/L. The reference range was not used to interpret this result as normal/abnormal. BE (test code = 5478875356) -3.6 See_Comment L [Automated messa ge] The system which generated this result transmitted reference range: -3.0 - 3.0 mEq/L. The reference range was not used to interpret this result as normal/abnormal. THB (test code = 9564581062) 11.1 g/dL 12.0-16.0 L %O2HB (test code = 8970460274) 91.4 % 94.0-99.0 L %COHB ART (test code = 4313946387) 1.2 % 0.0-1.5 %METHB ART (test code = 2840851546) 0.3 % 0.4-1.5 L VOL%O2 ART (test code = 0075842326) 14.4 % 15.0-23.0 L NA (test code = 2643253541) 135 mmol/L 135-145 K+ (test code = 0912393817) 4.9 mmol/L 3.5-5.0 AC CA IONZ (test code = 0900544602) 4.60 mg/dL 4.50-5.30 GLUCOSE (test code = 7301422794) 347 mg/dL 70-110 H LACTIC ACID (test code = 9436510956) 0.78 mmol/L 0.50-2.20 Lab Interpretation (test code = 74989-2) [facility] + Lactic [id number] 21:22:42* Test Item Value Reference Range Interpretation Comme nts PH (test code = 2) 7.21 7.35-7.45 L PCO2 (test code = 3045327873) 65 See_Comment H [Automated messa ge] The system which generated this result transmitted reference range: 35 - 45 mmHg. The reference range was not used to interpret this result as normal/abnormal. PO2 (test code = 7868784051) 79 See_Comment L [Automated messa ge] The system which generated this result transmitted reference range: 80 - 100 mmHg. The reference range was not used to interpret this result as normal/abnormal. HCO3 (test code = 4705921105) 25 See_Comment [Automated messa ge] The system which generated this result transmitted reference range: 22 - 26 mEq/L. The reference range was not used to interpret this result as normal/abnormal. BE (test code = 6065015938) -3.6 See_Comment L [Automated messa ge] The system which generated this result transmitted reference range: -3.0 - 3.0 mEq/L. The reference range was not used to interpret this result as normal/abnormal. THB (test code = 9131053360) 11.1 g/dL 12.0-16.0 L %O2HB (test code = 7102122103) 91.4 % 94.0-99.0 L %COHB ART (test code = 3068173258) 1.2 % 0.0-1.5 %METHB ART (test code = 0857822693) 0.3 % 0.4-1.5 L VOL%O2 ART (test code = 3126615337) 14.4 % 15.0-23.0 L NA (test code = 1007659893) 135 mmol/L 135-145 K+ (test code = 4571945340) 4.9 mmol/L 3.5-5.0 AC CA IONZ (test code = 0435041532) 4.60 mg/dL 4.50-5.30 GLUCOSE (test code = 5836870562) 347 mg/dL 70-110 H LACTIC ACID (test code = 2770474096) 0.78 mmol/L 0.50-2.20 Lab Interpretation (test code = 77017-4) [facility] + Lactic Caks9554-98-96 21:22:42* Test Item Value Reference Range Interpretation Comme nts PH (test code = 2) 7.21 7.35-7.45 L PCO2 (test code = 6826881856) 65 See_Comment H [Automated messa ge] The system which generated this result transmitted reference range: 35 - 45 mmHg. The reference range was not used to interpret this result as normal/abnormal. PO2 (test code = 9926519111) 79 See_Comment L [Automated messa ge] The system which generated this result transmitted reference range: 80 - 100 mmHg. The reference range was not used to interpret this result as normal/abnormal. HCO3 (test code = 7125415687) 25 See_Comment [Automated messa ge] The system which generated this result transmitted reference range: 22 - 26 mEq/L. The reference range was not used to interpret this result as normal/abnormal. BE (test code = 6995609811) -3.6 See_Comment L [Automated messa ge] The system which generated this result transmitted reference range: -3.0 - 3.0 mEq/L. The reference range was not used to interpret this result as normal/abnormal. THB (test code = 3982951179) 11.1 g/dL 12.0-16.0 L %O2HB (test code = 0596572199) 91.4 % 94.0-99.0 L %COHB ART (test code = 0813979717) 1.2 % 0.0-1.5 %METHB ART (test code = 9954464904) 0.3 % 0.4-1.5 L VOL%O2 ART (test code = 8981040063) 14.4 % 15.0-23.0 L NA (test code = 7809558434) 135 mmol/L 135-145 K+ (test code = 9344612644) 4.9 mmol/L 3.5-5.0 AC CA IONZ (test code = 5909784752) 4.60 mg/dL 4.50-5.30 GLUCOSE (test code = 5319710183) 347 mg/dL 70-110 H LACTIC ACID (test code = 0534809857) 0.78 mmol/L 0.50-2.20 Lab Interpretation (test code = 67263-6) [facility] / [id number] 21:10:04* Test Item Value Reference Range Interpretation [...] the indications. Lab Interpretation (test code = 22224-5) [facility] 21:10:04* Test Item Value Reference Range Interpretation Comme nts APTT Patient (test code = 3173-2) 87 See_Comment H [Automated messa ge] The system which generated this result transmitted reference range: 26 - 36 Seconds. The reference range was not used to interpret this result as normal/abnormal. Lab Interpretation (test code = 15621-5) [facility] / [id number] 21:10:04* Test Item Value Reference Range Interpretation [...] the indications. Lab Interpretation (test code = 08973-4) [facility] 21:10:04* Test Item Value Reference Range Interpretation Comme nts APTT Patient (test code = 3173-2) 87 See_Comment H [Automated messa ge] The system which generated this result transmitted reference range: 26 - 36 Seconds. The reference range was not used to interpret this result as normal/abnormal. Lab Interpretation (test code = 43243-2) [facility] / [id number] 21:10:04* Test Item Value Reference Range Interpretation [...] the indications. Lab Interpretation (test code = 10678-4) [facility] 21:10:04* Test Item Value Reference Range Interpretation Comme [facility] APTT Patient (test code = 3173-2) 87 See_Comment H [Automated messa ge] The system which generated this result transmitted reference range: 26 - 36 Seconds. The reference range was not used to interpret this result as normal/abnormal. Lab Interpretation (test code = 23317-7) Abnormal [facility] WITH [id number] 21:03:24* Test Item Value Reference Range Interpretation Comme [facility] WBC (test code = 6690-2) 15.24 See_Comment [...] 31.6 g/dL 31.6-35.1 RDW-SD (test code = 87815-7) 52.7 fL 39.0-49.9 H RDW-CV (test code = 788-0) 17.2 % 12.0-15.5 H PLT (test code = 777-3) 218 See_Comment [Automated message] The system which generated this result transmitted reference range: 166 - 358 10*3/?L. The reference range was not used to interpret this result as normal/abnormal. MPV (test code = 14296-2) 10.9 fL 9.5-12.9 NRBC/100 WBC (test code = 7322953730) 0.0 See_Comment [Automated message] The system which generated this result transmitted reference range: 0.0 - 10.0 /100 WBCs. The reference range was not used to interpret this result as normal/abnormal. NRBC x10^3 (test code = 1541742682) See_Comment [Automated message] The system which generated this result transmitted reference range: 10*3/?L. The reference range was not used to interpret this result as normal/abnormal. GRAN MAT (NEUT) % (test code = 770-8) 83.2 % IMM GRAN % (test code = 4648086642) 0.90 % LYMPH % (test code = 736-9) 6.4 % MONO % (test code = 5905-5) 5.2 % EOS % (test code = 713-8) 3.9 % BASO % (test code = 706-2) 0.4 % GRAN MAT x10^3(ANC) (test code = 8551654918) 12.70 10*3/uL 1.88-7.09 H IMM GRAN x10^3 (test code = 4019161926) 0.13 10*3/uL 0.00-0.06 H LYMPH x10^3 (test code = 731-0) 0.97 10*3/uL 1.32-3.29 L MONO x10^3 (test code = 742-7) 0.79 10*3/uL 0.33-0.92 EOS x10^3 (test code = 711-2) 0.59 10*3/uL 0.03-0.39 H BASO x10^3 (test code = 704-7) 0.06 10*3/uL 0.01-0.07 Lab Interpretation (test code = 67562-3) Abnormal [facility] WITH [id number] 21:03:24* Test Item Value Reference Range Interpretation [...] 31.6 g/dL 31.6-35.1 RDW-SD (test code = 53635-9) 52.7 fL 39.0-49.9 H RDW-CV (test code = 788-0) 17.2 % 12.0-15.5 H PLT (test code = 777-3) 218 See_Comment [Automated message] The system which generated this result transmitted reference range: 166 - 358 10*3/?L. The reference range was not used to interpret this result as normal/abnormal. MPV (test code = 06725-2) 10.9 fL 9.5-12.9 NRBC/100 WBC (test code = 1267465208) 0.0 See_Comment [Automated message] The system which generated this result transmitted reference range: 0.0 - 10.0 /100 WBCs. The reference range was not used to interpret this result as normal/abnormal. NRBC x10^3 (test code = 0820684467) See_Comment [Automated message] The system which generated this result transmitted reference range: 10*3/?L. The reference range was not used to interpret this result as normal/abnormal. GRAN MAT (NEUT) % (test code = 770-8) 83.2 % IMM GRAN % (test code = 4398749968) 0.90 % LYMPH % (test code = 736-9) 6.4 % MONO % (test code = 5905-5) 5.2 % EOS % (test code = 713-8) 3.9 % BASO % (test code = 706-2) 0.4 % GRAN MAT x10^3(ANC) (test code = 2447426654) 12.70 10*3/uL 1.88-7.09 H IMM GRAN x10^3 (test code = 9922075091) 0.13 10*3/uL 0.00-0.06 H LYMPH x10^3 (test code = 731-0) 0.97 10*3/uL 1.32-3.29 L MONO x10^3 (test code = 742-7) 0.79 10*3/uL 0.33-0.92 EOS x10^3 (test code = 711-2) 0.59 10*3/uL 0.03-0.39 H BASO x10^3 (test code = 704-7) 0.06 10*3/uL 0.01-0.07 Lab Interpretation (test code = 58717-0) [facility] [facility] [id number] 21:03:24* Test Item Value Reference Range Interpretation [...] 31.6 g/dL 31.6-35.1 RDW-SD (test code = 42764-4) 52.7 fL 39.0-49.9 H RDW-CV (test code = 788-0) 17.2 % 12.0-15.5 H PLT (test code = 777-3) 218 See_Comment [Automated message] The system which generated this result transmitted reference range: 166 - 358 10*3/?L. The reference range was not used to interpret this result as normal/abnormal. MPV (test code = 92851-8) 10.9 fL 9.5-12.9 NRBC/100 WBC (test code = 3026496736) 0.0 See_Comment [Automated message] The system which generated this result transmitted reference range: 0.0 - 10.0 /100 WBCs. The reference range was not used to interpret this result as normal/abnormal. NRBC x10^3 (test code = 2308922268) See_Comment [Automated message] The system which generated this result transmitted reference range: 10*3/?L. The reference range was not used to interpret this result as normal/abnormal. GRAN MAT (NEUT) % (test code = 770-8) 83.2 % IMM GRAN % (test code = 7918927757) 0.90 % LYMPH % (test code = 736-9) 6.4 % MONO % (test code = 5905-5) 5.2 % EOS % (test code = 713-8) 3.9 % BASO % (test code = 706-2) 0.4 % GRAN MAT x10^3(ANC) (test code = 2216365553) 12.70 10*3/uL 1.88-7.09 H IMM GRAN x10^3 (test code = 8619927684) 0.13 10*3/uL 0.00-0.06 H LYMPH x10^3 (test code = 731-0) 0.97 10*3/uL 1.32-3.29 L MONO x10^3 (test code = 742-7) 0.79 10*3/uL 0.33-0.92 EOS x10^3 (test code = 711-2) 0.59 10*3/uL 0.03-0.39 H BASO x10^3 (test code = 704-7) 0.06 10*3/uL 0.01-0.07 Lab Interpretation (test code = 69417-3) Abnormal [facility] GLUCOSE (AUTOMATED)2023-03-21 20:45:47* Test Item Value Reference Range Interpretation Comme nts POCT GLU (test code = 5489722767) 349 mg/dL 70-110 H Lab Interpretation (test cod e = 40727-9) Abnormal [facility] GLUCOSE (AUTOMATED)2023-03-21 20:45:47* Test Item Value Reference Range Interpretation Comme nts POCT GLU (test code = 6118535786) 349 mg/dL 70-110 H Lab Interpretation (test cod e = 54212-1) Abnormal [facility] GLUCOSE (AUTOMATED)2023-03-21 20:45:47* Test Item Value Reference Range Interpretation Comme nts POCT GLU (test code = 0468107658) 349 mg/dL 70-110 H Lab Interpretation (test cod e = 61534-1) Abnormal [facility] GLUCOSE (AUTOMATED)2023-03-21 14:49:15* Test Item Value Reference Range Interpretation Comme nts POCT GLU (test code = 5447311512) 269 mg/dL 70-110 H Lab Interpretation (test cod e = 64919-2) Abnormal [facility] GLUCOSE (AUTOMATED)2023-03-21 14:49:15* Test Item Value Reference Range Interpretation Comme nts POCT GLU (test code = 5793595767) 269 mg/dL 70-110 H Lab Interpretation (test cod e = 64840-0) Abnormal [facility] GLUCOSE (AUTOMATED)2023-03-21 14:49:15* Test Item Value Reference Range Interpretation Comme nts POCT GLU (test code = 4647232724) 269 mg/dL 70-110 H Lab Interpretation (test cod e = 95305-1) Abnormal [facility] GLUCOSE (AUTOMATED)2023-02-21 22:11:38* Test Item Value Reference Range Interpretation Comme nts POCT GLU (test code = 7624798947) 197 mg/dL 70-110 H Lab Interpretation (test cod e = 62325-7) Abnormal [facility] GLUCOSE (AUTOMATED)2023-02-21 17:06:17* Test Item Value Reference Range Interpretation Comme nts POCT GLU (test code = 9128163528) 170 mg/dL 70-110 H Lab Interpretation (test cod e = 24309-7) Abnormal [facility] GLUCOSE (AUTOMATED)2023-02-21 13:20:45* Test Item Value Reference Range Interpretation Comme nts POCT GLU (test code = 9949807030) 108 mg/dL 70-110 Lab Interpretation (test cod e = 33876-8) Normal [facility] Acid Whole [id number] 04:44:32* Test Item Value Reference Range Interpretation Comme nts LACTIC ACID (test code = 6964460788) 1.31 mmol/L 0.50-2.20 Lab Interpretation (test cod e = 89384-2) Normal [facility] Acid Whole [id number] 01:59:10* Test Item Value Reference Range Interpretation Comme nts LACTIC ACID (test code = 1196277360) 2.19 mmol/L 0.50-2.20 Lab Interpretation (test cod e = 84424-8) Normal [facility] URINALYSIS W SPECIFIC [id number] 15:30:00* Test Item Value Reference Range Interpretation [...] 3267) Lab Interpretation (test cod e = 79189-7) [facility] [id number] 15:30:00* Test Item Value Reference Range Interpretation [...] 3267) Lab Interpretation (test cod e = 24377-1) [facility] RockFERR[facility]IN [id number] 02:30:21* Test Item Value Reference Range Interpretation Comme nts FERRITIN (test code = 5555722619) 105.0 ng/mL 11.0-264.0 MAJOR (test code = MAJOR) Biotin has been reported to cause a negative bias, interpret results relative to patient's use of biotin. Lab Interpretation (test code = 23015-1) [facility]ID STIMULATING [id number] 21:20:57 * Test Item Value Reference Range Interpretation Comme nts TSH (test code = 9505136268) 3.71 See_Comment [Automated messa ge] The system which generated this result transmitted reference range: 0.45 - 4.70 mIU/L. The reference range was not used to interpret this result as normal/abnormal. Lab Interpretation (test code = 00890-2) [facility] RockFREE [id number] 21:07:16* Test Item Value Reference Range Interpretation Comme nts FREE T4 (test code = 5340029253) 1.18 See_Comment [Automated messa ge] The system which generated this result transmitted reference range: 0.78 - 2.20 ng/dL:. The reference range was not used to interpret this result as normal/abnormal. Lab Interpretation (test code = 45101-4) [facility] RockIRON [id number] 20:59:33* Test Item Value Reference Range Interpretation Comme nts IRON (test code = 8436907977) 50 ug/dL 50-160 TIBC (test code = 0930775524) 322 ug/dL 250-410 % FE SAT (test code = 6572238787) 16 % 20-50 L Lab Interpretation (test cod e = 38511-9) [facility]2023-[facility]-28 20:50:49* Test Item Value Reference Range Interpretation Comme nts MAGNESIUM (test code = 2897114939) 2.1 mg/dL 1.7-2.4 Lab Interpretation (test cod e = 44743-9) [facility] RockGLYCOSYLATED HEMOGLOBIN (A1C)2022-09-28 20:11:01* Test Item Value Reference Range Interpretation Comme nts HGB A1C (test code = 4548-4) 8.1 % 4.0-5.7 H MAJOR (test code = MAJOR) Reference RangesNormal: <5.7%Prediabetes: 5.7 - 6.4%Diabetes: > 6.5% Lab Interpretation (test code = 11930-8) Abnormal [facility] GLUCOSE (AUTOMATED)2022-07-05 22:35:15* Test Item Value Reference Range Interpretation Comme nts POCT GLU (test code = 1059113776) 228 mg/dL 70-110 H Lab Interpretation (test cod e = 06262-4) Abnormal [facility] GLUCOSE (AUTOMATED)2022-07-05 17:24:00* Test Item Value Reference Range Interpretation Comme nts POCT GLU (test code = 8555983483) 238 mg/dL 70-110 H Lab Interpretation (test cod e = 54115-1) Abnormal [facility] GLUCOSE (AUTOMATED)2022-07-05 15:19:38* Test Item Value Reference Range Interpretation Comme nts POCT GLU (test code = 3976098849) 171 mg/dL 70-110 H Lab Interpretation (test cod e = 65000-6) Abnormal [facility] GLUCOSE (AUTOMATED)2022-07-05 09:38:21* Test Item Value Reference Range Interpretation Comme nts POCT GLU (test code = 1191817053) 241 mg/dL 70-110 H Lab Interpretation (test cod e = 28842-5) Abnormal [facility] GLUCOSE (AUTOMATED)2022-07-05 07:30:23* Test Item Value Reference Range Interpretation Comme nts POCT GLU (test code = 0777266572) 179 mg/dL 70-110 H Lab Interpretation (test cod e = 68077-6) Abnormal [facility] GLUCOSE (AUTOMATED)2022-07-05 06:27:50* Test Item Value Reference Range Interpretation Comme nts POCT GLU (test code = 9820508471) 160 mg/dL 70-110 H Lab Interpretation (test cod e = 69271-3) Abnormal [facility] GLUCOSE (AUTOMATED)2022-07-04 22:34:25* Test Item Value Reference Range Interpretation Comme nts POCT GLU (test code = 8951880977) 198 mg/dL 70-110 H Lab Interpretation (test cod e = 10421-2) Abnormal [facility] GLUCOSE (AUTOMATED)2022-07-04 21:21:32* Test Item Value Reference Range Interpretation Comme nts POCT GLU (test code = 9775815247) 196 mg/dL 70-110 H Lab Interpretation (test cod e = 64610-4) Abnormal [facility] GLUCOSE (AUTOMATED)2022-07-04 17:38:52* Test Item Value Reference Range Interpretation Comme nts POCT GLU (test code = 9738797624) 202 mg/dL 70-110 H Lab Interpretation (test cod e = 41326-8) Abnormal [facility] GLUCOSE (AUTOMATED)2022-07-04 13:26:47* Test Item Value Reference Range Interpretation Comme nts POCT GLU (test code = 7793337134) 219 mg/dL 70-110 H Lab Interpretation (test cod e = 50621-5) Abnormal [facility] GLUCOSE (AUTOMATED)2022-07-04 06:42:08* Test Item Value Reference Range Interpretation Comme nts POCT GLU (test code = 1505453115) 184 mg/dL 70-110 H Lab Interpretation (test cod e = 37921-1) Abnormal [facility] GLUCOSE (AUTOMATED)2022-07-04 01:56:31* Test Item Value Reference Range Interpretation Comme nts POCT GLU (test code = 9277009626) 198 mg/dL 70-110 H Lab Interpretation (test cod e = 87129-5) Abnormal [facility] GLUCOSE (AUTOMATED)2022-07-03 22:17:31* Test Item Value Reference Range Interpretation Comme nts POCT GLU (test code = 4131665746) 200 mg/dL 70-110 H Lab Interpretation (test cod e = 89333-6) Abnormal [facility] METABOLIC PANEL (NA, K, CL, CO2, GLUCOSE, BUN, CREATININE, CA)2022-07-03 20:26:33* Test Item Value Reference Range Interpretation Comme nts NA (test code = 5263277482) 136 mmol/L 135-145 K (test code = 5682995449) 3.1 mmol/L 3.5-5.0 L CL (test code = 9475364704) 81 mmol/L 98-108 L CO2 TOTAL (test code = 7231250503) 47 mmol/L 23-31 H AGAP (test code = 6187018746) 2-16 BUN (test code = 3589468615) 33 mg/dL 7-23 H GLUCOSE (test code = 3695076259) 199 mg/dL 70-110 H CREATININE (test code = 5997230828) 1.54 mg/dL 0.50-1.04 H CALCIUM (test code = 0381654682) 7.8 mg/dL 8.6-10.6 L eGFR (test code = 2975569316) mL/min/1.73m2 MAJOR (test code = MAJOR) Association [...] imaging tests). Lab Interpretation (test code = 92136-5) [facility]normal [facility] RockTROPONIN [id number] 20:21:17* Test Item Value Reference Range Interpretation Comments TROPONIN I (test code = 8857739405) 0.040 ng/mL See_Comment H [Automated message] The [...] of biotin. Lab Interpretation (test code = 36435-6) [facility]normal [facility] RockN-TERMINAL [id number] 20:17:56* Test Item Value Reference Range Interpretation Comme nts NT-proBNP (test code = 5977703258) 3650 pg/mL See_Comment H [Automated message] The system which generated this result transmitted reference range: <=450. The reference range was not used to interpret this result as normal/abnormal. MAJOR (test code = MAJOR) Biotin has been reported to cause a negative bias, interpret results relative to patient's use of biotin. Lab Interpretation (test code = 08772-3) [facility]MAG[facility]2022-12-31 20:09:38* Test Item Value Reference Range Interpretation Comme nts MAGNESIUM (test code = 1072279720) 2.3 mg/dL 1.7-2.4 Lab Interpretation (test cod e = 57942-2) Normal [facility] GLUCOSE (AUTOMATED)2022-07-03 18:17:58* Test Item Value Reference Range Interpretation Comme nts POCT GLU (test code = 5311150080) 218 mg/dL 70-110 H Notified Provide r Lab Interpretation (test code = 19923-2) Abnormal [facility] GLUCOSE (AUTOMATED)2022-07-03 13:39:43* Test Item Value Reference Range Interpretation Comme nts POCT GLU (test code = 1242498347) 199 mg/dL 70-110 H Lab Interpretation (test cod e = 96266-6) Abnormal [facility] GLUCOSE (AUTOMATED)2022-07-03 10:55:23* Test Item Value Reference Range Interpretation Comme nts POCT GLU (test code = 6820879486) 211 mg/dL 70-110 H Lab Interpretation (test cod e = 11524-8) Abnormal [facility] GLUCOSE (AUTOMATED)2022-07-03 06:18:57* Test Item Value Reference Range Interpretation Comme nts POCT GLU (test code = 1812932333) 172 mg/dL 70-110 H Lab Interpretation (test cod e = 67640-0) Abnormal [facility] GLUCOSE (AUTOMATED)2022-07-03 02:25:25* Test Item Value Reference Range Interpretation Comme nts POCT GLU (test code = 1490428926) 251 mg/dL 70-110 H Lab Interpretation (test cod e = 79953-6) Abnormal [facility] GLUCOSE (AUTOMATED)2022-07-03 02:25:25* Test Item Value Reference Range Interpretation Comme nts POCT GLU (test code = 2626638496) 191 mg/dL 70-110 H Lab Interpretation (test cod e = 43154-0) Abnormal [facility] GLUCOSE (AUTOMATED)2022-07-02 22:03:54* Test Item Value Reference Range Interpretation Comme nts POCT GLU (test code = 5099252342) 232 mg/dL 70-110 H Lab Interpretation (test cod e = 94173-4) Abnormal [facility] GLUCOSE (AUTOMATED)2022-07-02 22:03:49* Test Item Value Reference Range Interpretation Comme nts POCT GLU (test code = 9298637603) 191 mg/dL 70-110 H Lab Interpretation (test cod e = 06764-1) [facility]2022-[facility]-30 17:28:59* Test Item Value Reference Range Interpretation Comme nts MAGNESIUM (test code = 5404356029) 2.2 mg/dL 1.7-2.4 Lab Interpretation (test cod e = 96418-0) Normal [facility] GLUCOSE (AUTOMATED)2022-07-02 13:32:56* Test Item Value Reference Range Interpretation Comme nts POCT GLU (test code = 0723455913) 184 mg/dL 70-110 H Lab Interpretation (test cod e = 05158-3) Abnormal [facility] METABOLIC PANEL (NA, K, CL, CO2, GLUCOSE, BUN, CREATININE, CA)2022-07-02 12:33:47* Test Item Value Reference Range Interpretation Comme nts NA (test code = 8802309629) 138 mmol/L 135-145 K (test code = 3383450719) 3.1 mmol/L 3.5-5.0 L CL (test code = 2233288091) 87 mmol/L 98-108 L CO2 TOTAL (test code = 8539412796) 45 mmol/L 23-31 H AGAP (test code = 5666529186) 2-16 BUN (test code = 4548998634) 26 mg/dL 7-23 H GLUCOSE (test code = 3591427512) 182 mg/dL 70-110 H CREATININE (test code = 2428233167) 1.33 mg/dL 0.50-1.04 H CALCIUM (test code = 1122376508) 7.7 mg/dL 8.6-10.6 L eGFR (test code = 8286242053) mL/min/1.73m2 MAJOR (test code = MAJOR) Association [...] imaging tests). Lab Interpretation (test code = 97939-7) [facility] RockTR[facility] [id number] 12:04:10* Test Item Value Reference Range Interpretation Comments TROPONIN I (test code = 5925583641) 0.060 ng/mL See_Comment H [Automated message] The [...] of biotin. Lab Interpretation (test code = 84527-9) [facility] [id number] 12:01:08* Test Item Value Reference Range Interpretation Comme nts NT-proBNP (test code = 9748448899) 5730 pg/mL See_Comment H [Automated message] The system which generated this result transmitted reference range: <=450. The reference range was not used to interpret this result as normal/abnormal. MAJOR (test code = MAJOR) Biotin has been reported to cause a negative bias, interpret results relative to patient's use of biotin. Lab Interpretation (test code = 77721-5) [facility] RockLIPID PANEL (76036)(TOTAL CHOLESTEROL, TRIGLYCERIDES, HDL)2022-07-02 11:55:30* Test Item Value Reference Range Interpretation Comme nts CHOL (test code = 1052663296) 113 mg/dL 120-200 L HDL (test code = 1992003302) 17 mg/dL See_Comment L [Automated [employer]] The system which generated this result transmitted reference range: >=50. The reference range was not used to interpret this result as normal/abnormal. HDLC RATIO (test code = 5218300996) See_Comment H [Automated [employer]] The system which generated this result transmitted reference range: <=4.5. The reference range was not used to interpret this result as normal/abnormal. TRIG (test code = 3106106399) 175 mg/dL 30-170 H LDL CHOL (test code = 29904-7) 61 mg/dL See_Comment [Automated [employer]] The system which generated this result transmitted reference range: <=160. The reference range was not used to interpret this result as normal/abnormal. VLDL (test code = 4127090878) 35 mg/dL 5-60 Lab Interpretation (test code = 80491-7) Abnormal [facility] WITH [id number] 11:27:24* Test Item Value Reference Range Interpretation [...] g/dL 31.6-35.1 L RDW-SD (test code = 57626-5) 51.4 fL 39.0-49.9 H RDW-CV (test code = 788-0) 17.1 % 12.0-15.5 H PLT (test code = 777-3) See_Comment [Automated messa ge] The system which generated this result transmitted reference range: 166 - 358 10*3/?L. The reference range was not used to interpret this result as normal/abnormal. MPV (test code = 48623-8) 9.5 fL 9.5-12.9 NRBC/100 WBC (test code = 1182908986) See_Comment [Automated [employer]] The system which generated this result transmitted reference range: 0.0 - 10.0 /100 WBCs. The reference range was not used to interpret this result as normal/abnormal. NRBC x10^3 (test code = 9061970211) See_Comment [Automated messa ge] The system which generated this result transmitted reference range: 10*3/?L. The reference range was not used to interpret this result as normal/abnormal. GRAN MAT (NEUT) % (test code = 770-8) 67.5 % IMM GRAN % (test code = 6673262869) 0.70 % LYMPH % (test code = 736-9) 10.7 % MONO % (test code = 5905-5) 14.1 % EOS % (test code = 713-8) 6.5 % BASO % (test code = 706-2) 0.5 % GRAN MAT x10^3(ANC) (test code = 5440248241) 3.98 10*3/uL 1.88-7.09 IMM GRAN x10^3 (test code = 4856606251) 0.04 10*3/uL 0.00-0.06 LYMPH x10^3 (test code = 731-0) 0.63 10*3/uL 1.32-3.29 L MONO x10^3 (test code = 742-7) 0.83 10*3/uL 0.33-0.92 EOS x10^3 (test code = 711-2) 0.38 10*3/uL 0.03-0.39 BASO x10^3 (test code = 704-7) 0.03 10*3/uL 0.01-0.07 Lab Interpretation (test code = 59247-4) Abnormal [facility] GLUCOSE (AUTOMATED)2022-07-02 05:18:28* Test Item Value Reference Range Interpretation Comme nts POCT GLU (test code = 4054002761) 186 mg/dL 70-110 H Lab Interpretation (test cod e = 45671-2) Abnormal [facility] GLUCOSE (AUTOMATED)2022-07-02 02:16:12* Test Item Value Reference Range Interpretation Comme nts POCT GLU (test code = 6278120750) 167 mg/dL 70-110 H Lab Interpretation (test cod e = 05146-5) Abnormal [facility] GLUCOSE (AUTOMATED)2022-07-01 22:29:43* Test Item Value Reference Range Interpretation Comme nts POCT GLU (test code = 7899608453) 166 mg/dL 70-110 H Notified Provide r Lab Interpretation (test code = 05009-0) Abnormal [facility] GLUCOSE (AUTOMATED)2022-07-01 22:29:37* Test Item Value Reference Range Interpretation Comme nts POCT GLU (test code = 5233611116) 219 mg/dL 70-110 H Notified Provide r Lab Interpretation (test code = 82032-0) Abnormal [facility] GLUCOSE (AUTOMATED)2022-07-01 22:29:32* Test Item Value Reference Range Interpretation Comme nts POCT GLU (test code = 1712093770) 219 mg/dL 70-110 H Notified Provide r Lab Interpretation (test code = 98836-4) Abnormal [facility] CULTURE [id number] 20:01:37* Test Item Value Reference Range Interpretation Comme nts Blood Culture-Aerobic (test code = 87121-6) No organisms isolated No growth Previous preliminary verified result was Culture In Progress on 06/26/2022 at 1701 CSTPrevious preliminary verified result was No growth at 24 hours on 06/27/2022 at 1401 CSTPrevious preliminary verified result was No growth at 48 hours on 06/28/2022 at 1401 CSTPrevious preliminary verified result was No growth at 72 hours on 06/29/2022 at 1401 [employer] Blood Culture-Anaerobic (test code = 56373-7) No organisms isolated No growth Previous preliminary verified result was Culture In Progress on 06/26/2022 at 1701 CSTPrevious preliminary verified result was No growth at 24 hours on 06/27/2022 at 1401 CSTPrevious preliminary verified result was No growth at 48 hours on 06/28/2022 at 1401 CSTPrevious preliminary verified result was No growth at 72 hours on 06/29/2022 at 1401 [employer] Lab Interpretation (test code = 03769-1) Normal [facility] CULTURE [id number] 20:01:37* Test Item Value Reference Range Interpretation Comme nts Blood Culture-Aerobic (test code = 30104-4) No organisms isolated No growth Previous preliminary verified result was Culture In Progress on 06/26/2022 at 1701 CSTPrevious preliminary verified result was No growth at 24 hours on 06/27/2022 at 1401 CSTPrevious preliminary verified result was No growth at 48 hours on 06/28/2022 at 1401 CSTPrevious preliminary verified result was No growth at 72 hours on 06/29/2022 at 1401 [employer] S[employer] Blood Culture-Anaerobic (test code = 43767-3) No organisms isolated No growth Previous preliminary verified result was Culture In Progress on 06/26/2022 at 1701 CSTPrevious preliminary verified result was No growth at 24 hours on 06/27/2022 at 1401 CSTPrevious preliminary verified result was No growth at 48 hours on 06/28/2022 at 1401 CSTPrevious preliminary verified result was No growth at 72 hours on 06/29/2022 at 1401 [employer] S[employer] Lab Interpretation (test code = 16018-9) Normal [facility] GLUCOSE (AUTOMATED)2022-07-01 09:39:13* Test Item Value Reference Range Interpretation Comme nts POCT GLU (test code = 2660998921) 198 mg/dL 70-110 H Lab Interpretation (test cod e = 58775-6) Abnormal [facility] GLUCOSE (AUTOMATED)2022-07-01 05:30:18* Test Item Value Reference Range Interpretation Comme nts POCT GLU (test code = 7870070455) 221 mg/dL 70-110 H Lab Interpretation (test cod e = 38228-6) Abnormal [facility] GLUCOSE (AUTOMATED)2022-07-01 02:07:09* Test Item Value Reference Range Interpretation Comme nts POCT GLU (test code = 4039706967) 220 mg/dL 70-110 H Lab Interpretation (test cod e = 56808-8) Abnormal [facility] GLUCOSE (AUTOMATED)2022-06-30 22:49:27* Test Item Value Reference Range Interpretation Comme nts POCT GLU (test code = 7538293871) 197 mg/dL 70-110 H Lab Interpretation (test cod e = 08949-8) Abnormal [facility] GLUCOSE (AUTOMATED)2022-06-30 18:01:17* Test Item Value Reference Range Interpretation Comme nts POCT GLU (test code = 8159839776) 198 mg/dL 70-110 H Lab Interpretation (test cod e = 13764-5) Abnormal [facility] GLUCOSE (AUTOMATED)2022-06-30 14:41:50* Test Item Value Reference Range Interpretation Comme nts POCT GLU (test code = 3423092976) 249 mg/dL 70-110 H Lab Interpretation (test cod e = 22585-9) Abnormal [facility] METABOLIC PANEL (NA, K, CL, CO2, GLUCOSE, BUN, CREATININE, CA)2022-06-30 12:42:06* Test Item Value Reference Range Interpretation Comme nts NA (test code = 1458826724) 140 mmol/L 135-145 K (test code = 6782257308) 3.6 mmol/L 3.5-5.0 CL (test code = 7432068849) 100 mmol/L 98-108 CO2 TOTAL (test code = 4839650729) 33 mmol/L 23-31 H AGAP (test code = 8695194353) 2-16 BUN (test code = 9291088867) 18 mg/dL 7-23 GLUCOSE (test code = 4411389680) 185 mg/dL 70-110 H CREATININE (test code = 8013941269) 1.35 mg/dL 0.50-1.04 H CALCIUM (test code = 6805455559) 8.5 mg/dL 8.6-10.6 L eGFR (test code = 4193987364) mL/min/1.73m2 MAJOR (test code = MAJOR) Association [...] imaging tests). Lab Interpretation (test code = 82823-3) [facility]2022-[facility]-28 12:42:06* Test Item Value Reference Range Interpretation Comme nts MAGNESIUM (test code = 6943621106) 2.3 mg/dL 1.7-2.4 Lab Interpretation (test cod e = 92954-8) [facility] 12:42:06* Test Item Value Reference Range Interpretation Comme nts PHOSPHORUS (test code = 0179867313) 2.8 mg/dL 2.5-5.0 Lab Interpretation (test cod e = 03181-8) [facility] [id number] 12:42:06* Test Item Value Reference Range Interpretation Comme nts NT-proBNP (test code = 7723801375) 9660 pg/mL See_Comment H [Automated message] The system which generated this result transmitted reference range: <=450. The reference range was not used to interpret this result as normal/abnormal. MAJOR (test code = MAJOR) Biotin has been reported to cause a negative bias, interpret results relative to patient's use of biotin. Lab Interpretation (test code = 73826-6) [facility]normal [facility] WITH [id number] 11:09:01* Test Item Value Reference Range Interpretation Comme nts WBC (test code = 6690-2) See_Comment H [Automated Gull[employer]] The system which generated this result transmitted reference range: 4.30 - 11.10 10*3/?L. The reference range was not used to interpret this result as normal/abnormal. RBC (test code = 789-8) See_Comment [Automated [employer]] The system which generated this result transmitted [...] g/dL 31.6-35.1 L RDW-SD (test code = 29883-6) 50.2 fL 39.0-49.9 H RDW-CV (test code = 788-0) 17.1 % 12.0-15.5 H PLT (test code = 777-3) See_Comment [Automated messa ge] The system which generated this result transmitted reference range: 166 - 358 10*3/?L. The reference range was not used to interpret this result as normal/abnormal. MPV (test code = 82169-0) 10.1 fL 9.5-12.9 NRBC/100 WBC (test code = 8663423287) See_Comment [Automated iGo ssage] The system which generated this result transmitted reference range: 0.0 - 10.0 /100 WBCs. The reference range was not used to interpret this result as normal/abnormal. NRBC x10^3 (test code = 3745092814) See_Comment [Automated [employer] ge] The system which generated this result transmitted reference range: 10*3/?L. The reference range was not used to interpret this result as normal/abnormal. GRAN MAT (NEUT) % (test code = 770-8) 83.2 % IMM GRAN % (test code = 9263016044) 0.80 % LYMPH % (test code = 736-9) 7.0 % MONO % (test code = 5905-5) 7.2 % EOS % (test code = 713-8) 1.5 % BASO % (test code = 706-2) 0.3 % GRAN MAT x10^3(ANC) (test code = 5234576777) 9.74 10*3/uL 1.88-7.09 H IMM GRAN x10^3 (test code = 1665996441) 0.09 10*3/uL 0.00-0.06 H LYMPH x10^3 (test code = 731-0) 0.82 10*3/uL 1.32-3.29 L MONO x10^3 (test code = 742-7) 0.84 10*3/uL 0.33-0.92 EOS x10^3 (test code = 711-2) 0.18 10*3/uL 0.03-0.39 BASO x10^3 (test code = 704-7) 0.04 10*3/uL 0.01-0.07 Lab Interpretation (test code = 31510-1) Abnormal [facility] GLUCOSE (AUTOMATED)2022-06-30 10:54:19* Test Item Value Reference Range Interpretation Comme nts POCT GLU (test code = 0620683253) 174 mg/dL 70-110 H Lab Interpretation (test cod e = 40916-2) Abnormal [facility] GLUCOSE (AUTOMATED)2022-06-30 02:23:20* Test Item Value Reference Range Interpretation Comme nts POCT GLU (test code = 0085947422) 187 mg/dL 70-110 H Lab Interpretation (test cod e = 04667-5) Abnormal [facility] GLUCOSE (AUTOMATED)2022-06-30 01:12:17* Test Item Value Reference Range Interpretation Comme nts POCT GLU (test code = 4622243068) 206 mg/dL 70-110 H Lab Interpretation (test cod e = 30810-6) [facility]2022-06-29 22:52:13* Test Item Value Reference Range Interpretation Comme nts Height (test code = 9878060439) in Weight (test code = 2820692174) lbs Systolic BP (test code = 4253857101) mmHg Diastolic BP (test code = 2245956173) mmHg Heart Rate (test code = 1104204179) bpm BSA (test code = 8785563577) 2.25 m2 LVIDD (test code = 0128064656) 5.90 cm Left Ventricular End Diastolic Volume by Teichholz Method (test code = 3111365) 171.4 mL IVS (test code = 7588417709) 1.10 cm Interventricular Septum Diastolic Thickness by 2D (test code = 3319912) 1.10 cm LVPWD (test code = 8355290751) 0.97 cm PW (test code = 8452871091) 0.97 cm 0.6-1.1 EF(Teich) (test code = 0718824824) 46.70 % LVIDS (test code = 3754827298) 4.50 cm Left Ventricular End Systolic Volume by Teichholz Method (test code = 3913806) 91.3 mL FS (test code = 6850858396) 24 % EF - 2D (test code = 94996444) 46.70 % LVOT diameter (test code = 3183241115) 2.05 cm LVOT area (test code = 4779669703) 3.30 cm2 ACS (test code = 3114551137) 1.83 cm Ao root diam (test code = 2063741351) 3.30 cm Aortic root (test code = 3993973269) 3.3 cm Ao root annulus (test code = 8805273938) 3.3 cm LA size (test code = 9671215125) 3.7 cm E wave decelartion time (test code = 4703990698) 0.18 s MV Peak E Johnny (test code = 0279983777) 114.6 cm/s MV Peak A Johnny (test code = 8663781166) 106.0 cm/s E/A ratio (test code = 8803319510) ratio MV Prop V (test code = 8818622872) 36.10 cm/s Tapse (test code = 7087676764) 2.31 cm TR Peak Johnny (test code = 5208612661) 293.8 cm/s Triscuspid Valve Regurgitation Peak Gradient (test code = 3788875659) mmHg LVOT stroke volume (test code = 6557884004) 107.50 cm3 LVOT peak johnny (test code = 3963590325) 143.9 cm/s LVOT mn grad (test code = 3908944615) mmHg AV LVOT peak gradient (test code = 8335170806) mmHg LVOT peak VTI (test code = 1628869075) 32.7 cm LV V1 mean (test code = 2877101965) 96.10 cm/s Aortic valve mean velocity (test code = 1561037972) 125.9 cm/s Ao peak johnny (test code = 4084954919) 208.3 cm/s Ao VTI (test code = 0998406807) 42.4 cm AV area by cont VTI (test code = 4706867005) 2.5 cm2 AV area peak johnny (test code = 6855072154) 2.3 cm2 Ao max PG (test code = 0571156552) 17.40 mm[Hg] AV peak gradient (test code = 4675260873) mmHg AV valve area (test code = 3939977882) 2.50 cm2 AV mean gradient (test code = 5558462996) mmHg Radiology Study observation (narrative) (test code = 43849-1) MAJOR (test code = MAJOR) Table formatting [...] was not well visualized. Misha [facility]ccormick [facility] Weight BSA (Calculated - sq m) BP [...] apical, parasternal and subcostal views were obtained. [facility] GLUCOSE (AUTOMATED)2022-06-29 17:20:48* Test Item Value Reference Range Interpretation Comme nts POCT GLU (test code = 5654001410) 206 mg/dL 70-110 H Lab Interpretation (test cod e = 48823-8) Abnormal [facility] GLUCOSE (AUTOMATED)2022-06-29 13:50:59* Test Item Value Reference Range Interpretation Comme nts POCT GLU (test code = 8272650207) 200 mg/dL 70-110 H Lab Interpretation (test cod e = 61567-0) Abnormal [facility] GLUCOSE (AUTOMATED)2022-06-29 07:09:24* Test Item Value Reference Range Interpretation Comme nts POCT GLU (test code = 1871060789) 196 mg/dL 70-110 H Lab Interpretation (test cod e = 09659-7) Abnormal [facility] GLUCOSE (AUTOMATED)2022-06-29 02:38:41* Test Item Value Reference Range Interpretation Comme nts POCT GLU (test code = 9638212233) 231 mg/dL 70-110 H Lab Interpretation (test cod e = 85047-3) Abnormal [facility] GLUCOSE (AUTOMATED)2022-06-28 22:33:13* Test Item Value Reference Range Interpretation Comme nts POCT GLU (test code = 6258874310) 179 mg/dL 70-110 H Lab Interpretation (test cod e = 24733-0) Abnormal [facility] GLUCOSE (AUTOMATED)2022-06-28 17:29:15* Test Item Value Reference Range Interpretation Comme nts POCT GLU (test code = 3545924474) 166 mg/dL 70-110 H Lab Interpretation (test cod e = 29312-9) Abnormal [facility] GLUCOSE (AUTOMATED)2022-06-28 13:43:31* Test Item Value Reference Range Interpretation Comme nts POCT GLU (test code = 8146643481) 178 mg/dL 70-110 H Lab Interpretation (test cod e = 67207-3) Abnormal [facility] GLUCOSE (AUTOMATED)2022-06-28 10:25:09* Test Item Value Reference Range Interpretation Comme nts POCT GLU (test code = 5785739190) 179 mg/dL 70-110 H Lab Interpretation (test cod e = 98579-2) Abnormal [facility] GLUCOSE (AUTOMATED)2022-06-28 05:58:08* Test Item Value Reference Range Interpretation Comme nts POCT GLU (test code = 3578808176) 211 mg/dL 70-110 H Lab Interpretation (test cod e = 62340-4) Abnormal [facility] GLUCOSE (AUTOMATED)2022-06-28 02:15:08* Test Item Value Reference Range Interpretation Comme nts POCT GLU (test code = 3686915765) 214 mg/dL 70-110 H Lab Interpretation (test cod e = 22576-1) Abnormal [facility] GLUCOSE (AUTOMATED)2022-06-27 22:33:11* Test Item Value Reference Range Interpretation Comme nts POCT GLU (test code = 4493167214) 213 mg/dL 70-110 H Lab Interpretation (test cod e = 79544-3) Abnormal [facility] GLUCOSE (AUTOMATED)2022-06-27 17:52:15* Test Item Value Reference Range Interpretation Comme nts POCT GLU (test code = 6292444067) 189 mg/dL 70-110 H Lab Interpretation (test cod e = 63191-3) Abnormal [facility] GLUCOSE (AUTOMATED)2022-06-27 14:05:18* Test Item Value Reference Range Interpretation Comme nts POCT GLU (test code = 6134260705) 116 mg/dL 70-110 H Lab Interpretation (test cod e = 09789-6) Abnormal [facility] GLUCOSE (AUTOMATED)2022-06-27 11:01:48* Test Item Value Reference Range Interpretation Comme nts POCT GLU (test code = 8836520677) 108 mg/dL 70-110 Lab Interpretation (test cod e = 94268-7) Normal [facility] GLUCOSE (AUTOMATED)2022-06-27 06:00:42* Test Item Value Reference Range Interpretation Comme nts POCT GLU (test code = 0833117216) 97 mg/dL 70-110 Lab Interpretation (test cod e = 86782-2) Normal [facility] GLUCOSE (AUTOMATED)2022-06-27 02:31:07* Test Item Value Reference Range Interpretation Comme nts POCT GLU (test code = 1143137463) 88 mg/dL 70-110 Lab Interpretation (test cod e = 91050-2) [id number] 18:50:59* Test Item Value Reference Range Interpretation Comments TROPONIN I (test code = 2331326620) 0.039 ng/mL See_Comment H [Automated message] The [...] of biotin. Lab Interpretation (test code = 01234-8) [facility] [id number] 18:47:58* Test Item Value Reference Range Interpretation Comme nts NT-proBNP (test code = 8156325087) 3840 pg/mL See_Comment H [Automated message] The system which generated this result transmitted reference range: <=450. The reference range was not used to interpret this result as normal/abnormal. MAJOR (test code = MAJOR) Biotin has been reported to cause a negative bias, interpret results relative to patient's use of biotin. Lab Interpretation (test code = 15363-8) [facility]2022-[facility]-24 18:39:19* Test Item Value Reference Range Interpretation Comme nts MAGNESIUM (test code = 6276717695) 1.9 mg/dL 1.7-2.4 Lab Interpretation (test cod e = 63883-7) Normal [facility]. METABOLIC PANEL (12482)2022-06-26 18:38:59* Test Item Value Reference Range Interpretation Comme nts NA (test code = 8304184450) 134 mmol/L 135-145 L K (test code = 4659948325) 4.0 mmol/L 3.5-5.0 CL (test code = 5401036879) 101 mmol/L 98-108 CO2 TOTAL (test code = 6447372389) 25 mmol/L 23-31 AGAP (test code = 0166408239) 2-16 BUN (test code = 8234259910) 23 mg/dL 7-23 GLUCOSE (test code = 4251401673) 80 mg/dL 70-110 CREATININE (test code = 7976133001) 1.44 mg/dL 0.50-1.04 H TOTAL BILI (test code = 9827184344) 1.1 mg/dL 0.1-1.1 CALCIUM (test code = 2060940194) 8.4 mg/dL 8.6-10.6 L T PROTEIN (test code = 3186132894) 6.4 g/dL 6.3-8.2 ALBUMIN (test code = 9471988635) 3.5 g/dL 3.5-5.0 ALK PHOS (test code = 1736991453) 28 U/L 34-122 L ALTv (test code = 1742-6) 20 U/L 5-35 AST(SGOT) (test code = 6764812855) 42 U/L 13-40 H eGFR (test code = 0348567659) mL/min/1.73m2 MAJOR (test code = MAJOR) Association [...] imaging tests). Lab Interpretation (test code = 30551-3) [facility]22[facility] 18:38:39* Test Item Value Reference Range Interpretation Comme nts LIPASE (test code = 5273146796) 224 U/L 0-220 H Lab Interpretation (test cod e = 18537-1) Abnormal [facility] RockACTIVATED PARTIAL THRMPLAS [id number] 18:31:19* Test Item Value Reference Range Interpretation Comme nts APTT Patient (test code = 3173-2) See_Comment [Automated message] The system which generated this result transmitted reference range: 23 - 38 Seconds. The reference range was not used to interpret this result as normal/abnormal. MAJOR (test code = MAJOR) The [facility] patient population mean normal value for aPTT is 30 seconds. Lab Interpretation (test code = 66497-3) Normal [facility] RockPROTHROMBIN TIME / [id number] 18:29:17* Test Item Value Reference Range Interpretation Comme nts PROTIME PATIENT (test code = 5964-2) See_Comment H [Automated [employer]] The system which generated this result transmitted reference range: 12.0 - 14.7 Seconds. The reference range was not used to interpret this result as normal/abnormal. INR (test code = 6301-6) Normal INR <1.1; Warfarin Therapeutic range 2.0 to 3.0 or 2.5 to 3.5, depending upon the indications. Lab Interpretation (test code = 00903-2) Abnormal [facility] Rock[facility] WITH [id number] 18:21:57* Test Item Value Reference Range Interpretation Comme nts WBC (test code = 6690-2) See_Comment [Automated [employer]] The system which generated this result transmitted reference range: 4.30 - 11.10 10*3/?L. The reference range was not used to interpret this result as normal/abnormal. RBC (test code = 789-8) See_Comment L [Automated messa ge] The system [...] 32.3 g/dL 31.6-35.1 RDW-SD (test code = 54383-1) 47.9 fL 39.0-49.9 RDW-CV (test code = 788-0) 17.0 % 12.0-15.5 H PLT (test code = 777-3) See_Comment [Automated messa ge] The system which generated this result transmitted reference range: 166 - 358 10*3/?L. The reference range was not used to interpret this result as normal/abnormal. MPV (test code = 36116-8) 9.8 fL 9.5-12.9 NRBC/100 WBC (test code = 1082955895) See_Comment [Automated iGo ssage] The system which generated this result transmitted reference range: 0.0 - 10.0 /100 WBCs. The reference range was not used to interpret this result as normal/abnormal. NRBC x10^3 (test code = 6043347717) See_Comment [Automated messa ge] The system which generated this result transmitted reference range: 10*3/?L. The reference range was not used to interpret this result as normal/abnormal. GRAN MAT (NEUT) % (test code = 770-8) 79.8 % IMM GRAN % (test code = 0240046280) 0.40 % LYMPH % (test code = 736-9) 10.3 % MONO % (test code = 5905-5) 8.9 % EOS % (test code = 713-8) 0.2 % BASO % (test code = 706-2) 0.4 % GRAN MAT x10^3(ANC) (test code = 8225690373) 4.11 10*3/uL 1.88-7.09 IMM GRAN x10^3 (test code = 2593672983) 0.00-0.06 LYMPH x10^3 (test code = 731-0) 0.53 10*3/uL 1.32-3.29 L MONO x10^3 (test code = 742-7) 0.46 10*3/uL 0.33-0.92 EOS x10^3 (test code = 711-2) 0.03-0.39 L BASO x10^3 (test code = 704-7) 0.01-0.07 Lab Interpretation (test code = 48591-6) [facility]ARS-CoV-2 (COVID-19) Ag [Presence] in Respiratory specimen by Rapid [id number] 10:45:00* Test Item Value Reference Range Interpretation Comme nts SARS CoV 2 (test code = SARS CoV 2) negative [facility] Consult Notes Date/Time Note Provider Source 2023-02-21 12:00:00 Associated Order(s): CONSULT PS PASTORAL CARE Zigzag Topstitcher visited with PT while rounding. PT received in bed awake. PT was alone. She has no family near. She has someone who is like a son to her who checks on her. PT is a . PT shared her family and health history. PT identifies a Jew within the non-druze community. Zigzag Topstitcher was a spiritual presence and emergency dept tech offering active compassionate listening, creating a scared space where the PT could share her thoughts, emotions, and concerns. Zigzag Topstitcher was an emotional presence as PT shed tears remembering her late . Zigzag Topstitcher offered words of encouragement and prayed for PT. Additional Zigzag Topstitcher support is available upon request. Chaplain Candice Michael [facility] Pastoral Care Department [phone] Candice Michael [facility] 2023-02-21 07:58:29 Associated Order(s): CONSULT CARDIOLOGY [facility] Cardiology Consult PCP: Brian Israel Date [...] disease etc. the patient was brought to [facility] emergency room due to possible [...] (deep venous thrombosis) Hyperlipidemia Hypertension Follows with [employer] Dr. Fuentes Hypothyroidism Lymphedema Muscle tear 2016 of right knee PAD (peripheral artery disease) Paroxysmal atrial fibrillation Type 2 diabetes mellitus Follows with food order delivery runner Dr. Andersen Past Surgical History: Procedure Laterality [...] (Sulfonamide Antibiotics) Nausea and/or Vomiting Per childcare provider, at rehab, tolerated fine with bendryl MEDICATIONS [...] mcg (0.1 %) nasal spray Use 1 [place]on in each nostril in the morning and 1 [place]on in the evening. Use in each nostril [...] Use as directed 3 Each 7 Insulin Empire, Disposable, (BD INSULIN PEN NEEDLE UF) 29 [...] be of further assistance. Sushil Persaud MD, FACC, HARJINDER [employer]el[employer], Division of Cardiology [facility] T [facility] - Health History and Physical Notes [...] (deep venous thrombosis) Hyperlipidemia Hypertension Follows with [employer] Dr. Fuentes Hypothyroidism Lymphedema Muscle tear 2015 of right knee PAD (peripheral artery disease) Paroxysmal atrial fibrillation Type 2 diabetes mellitus Follows with food order delivery runner Dr. Andersen Past Surgical History: Procedure Laterality [...] mcg (0.1 %) nasal spray Use 1 [place] in each nostril in the morning and 1 [place] in the evening. Use in each nostril [...] 100 Packet 1 Lancets (ACCU-CHEK MULTICLIX LANCET) [facility] Use as directed 3 Each 7 Insulin Empire, Disposable, (BD INSULIN PEN NEEDLE UF) 29 [...] (Sulfonamide Antibiotics) Nausea and/or Vomiting Per childcare provider, at rehab, tolerated fine with bendryl Make [...] toes especially on the right side. Modified Carter Score 4 - Moderately severe disability; unable [...] We will schedule all of this at [facility] HOLD APIXIBAN 2 DAY PRIOR TO PROCEDURE [facility] 2023-02-20 23:33:58 Formatting of this n ote is different from the original. [facility] Hospitalist Admission H&P Date of Service: 02/20/2023 [...] (deep venous thrombosis) Hyperlipidemia Hypertension Follows with [employer] Dr. Fuentes Hypothyroidism Lymphedema Muscle tear 2016 of right knee PAD (peripheral artery disease) Paroxysmal atrial fibrillation Type 2 diabetes mellitus Follows with food order delivery runner Dr. Andersen PAST SURGICAL HISTORY Past Surgical [...] (Sulfonamide Antibiotics) Nausea and/or Vomiting Per childcare provider, at rehab, tolerated fine with bendryl MEDICATIONS [...] MCG (0.1 %) NASAL SPRAY Use 1 Fulton in each nostril in the morning and 1 [place] in the evening. Use in each nostril [...] a day, DX:E11.9 LANCETS (ACCU-CHEK MULTICLIX LANCET) [facility] [place] Use as directed LATANOPROST (XALATAN) 0.005 % [...] (CURAD NON-STICK PAD) 3 X 4 " DG Use as directed NYSTATIN (NYSTOP) 100,000 UNIT/GRAM [...] high risk of morbidity and mortality. [place] MACHINE STEMMER was verified during stay Sam Meredith MD T [facility] 2023-02-20 23:30:00 Formatting of this n ote is different from the original. [facility] Hospitalist Admission H&P Date of Service: 02/21/2023 [...] to get around. She followed up at [facility] and was told that she may have [...] she advised them to bring her to [facility]. She was initially a little [...] (deep venous thrombosis) Hyperlipidemia Hypertension Follows with [employer] Dr. Fuentes Hypothyroidism Lymphedema Muscle tear 2016 of right knee PAD (peripheral artery disease) Paroxysmal atrial fibrillation Type 2 diabetes mellitus Follows with food order delivery runner Dr. Andersen PAST SURGICAL HISTORY Past Surgical [...] (Sulfonamide Antibiotics) Nausea and/or Vomiting Per childcare provider, at rehab, tolerated fine with bendryl MEDICATIONS [...] LANCET) Misc Comments: Reason for Stopping: Insulin Empire, Disposable, (BD INSULIN PEN NEEDLE UF) 29 [...] Report Dictated by Resident: Fredrick Ness I, Qi Paty Rodriguez, MD., have reviewed this study and agree [...] probably work on a home health or long-term facility placement at the time of discharge. [...] user?: NO Patient will require Observation [place] MACHINE STEMMER was verified during stay Sam Meredith MD T [facility] Notes Date/Time Note Provider Source 2024-08-20 15:06:44 Notice received from [employer] for a non formulary medication. The patient was provided with a temporary supply of the following med: Tresiba Suggested alternatives: Insulin Degludec Please review and advise. [facility] 2024-08-16 11:50:55 Refer to telephone encounter dated 08/03/24. Patient notified that records are being requested and to contact Markos at [phone] for clarification of testing. All was verbalized understanding. [facility] 2024-08-16 11:31:13 Markos with [employer] is calling and is wanting to check the status of the fax request that was sent on 07-26-24. Markos states they are needing the pts chart notes for the last 6 months and states the pt has already had the required testing. Please advise. [facility] Giorgi Escalante [facility] 2024-08-15 14:50:34 Patient contacted and denied request for Comprehensive Neurological testing by [facility]. She requested copy of order be mailed to her and sent out on 08/15/2024 [facility] 2024-08-13 11:25:45 Images from the original note were not included. Psychiatry: Antidepressants [id number]/10/2024 06:38 AM Manual Review: Verify no changes in dose in the last 3 months Valid encounter within last 12 months Please review and refill if appropriate. Recent Visits Date Type Provider Dept 04/30/24 Office Visit Elsi Christian MD [facility] 04/03/24 Office Visit Elsi Christian MD [facility] 01/31/24 Office Visit Brian Israel MD [facility] [...] and meeting all other requirements Future Appointments No visits were found meeting these conditions. Showing future appointments within next 150 days with a meds authorizing provider and meeting all other requirements [employer]ION SAFETY OFFICER Margarita Meyer RN [facility] 2024-08-03 14:57:09 Forms recd from [facility] requesting Neurology testing. LMTCB to confirm if patient requested testing. [facility] 2024-07-30 09:16:12 Images from the original note were not included. Notes: 06/26/24 Last Refilled: [facility] [address] [facility] [address] Recent Visits Date Type Provider Dept 04/30/24 Office Visit Elsi Christian MD [facility] 04/03/24 Office Visit Elsi Christian MD [facility] 01/31/24 Office Visit Brian Israel MD Ang-Db [...] and meeting all other requirements Future Appointments No visits were found meeting these conditions. Showing future appointments within next 150 days with a meds authorizing provider and meeting all other requirements Name from pharmacy: Baclofen 10mg Tablet Will file in chart as: BACLOFEN 10 mg tablet Sig: TAKE ONE (1) TABLET(S) BY MOUTH THREE TIMES A DAY NEEDED FOR PAIN. Disp: 90 tablet (Pharmacy requested: 90 Each) Refills: 0 (Pharmacy requested: Not specified) Start: 07/29/2024 Class: eRX For: Restless leg syndrome, Chronic deep vein thrombosis (DVT) of proximal vein of right lower extremity Last ordered: 1 month ago (06/26/2024) by Brian Israel MD Last refill: 06/28/2024 Rx #: [id number] Provider Review Required [id number]/29/2024 06:52 AM Protocol Details This refill cannot be delegated Valid encounter within last 12 months To be filled at: [address] [employer] [facility] [address] TION SAFETY OFFICER Sirena Galaviz MA [facility] 2024-07-10 10:02:01 Images from the original note were not included. Notes: Last Refilled: Name from pharmacy: Clopidogrel 75mg Tablet Will file in chart as: CLOPIDOGREL 75 mg tablet Sig: TAKE ONE (1) TABLET(S) BY MOUTH EVERY MORNING. Disp: 30 tablet (Pharmacy requested: 30 Each) Refills: 0 (Pharmacy requested: Not specified) Start: 07/08/2024 Class: eRX For: Peripheral arterial disease with history of revascularization Last ordered: 1 month ago (06/08/2024) by Brian Israel MD Last refill: 06/08/2024 Rx #: [id number] Anti-Platelets Mxqkha2507/08/2024 06:35 AM Protocol Details Valid encounter within last 12 months HGB in normal range and within 360 days HCT in normal range and within 360 days PLT in normal range and within 360 days RBC in normal range and within 360 days To be filled at: [address] [employer] [facility] [address] Recent Visits Date Type Provider Dept 04/30/24 Office Visit Elsi Christian MD Ang[facility] 04/03/24 Office Visit Elsi Christian MD [facility] 01/31/24 Office Visit Brian Israel MD Ang-Db [...] requirements Future Appointments Date Type Provider Dept 07/16/24 Appointment Brian Isarel MD Ang[facility] Showing future appointments within next 150 days with a meds authorizing provider and meeting all other requirements [facility] 2024-06-28 12:30:34 Last Refilled: Disp Refills Start End CELSO TRESIBA FLEXTOUCH U-100 100 unit/mL (3 mL) InPn 15 mL 2 02/10/2024 -- No Sig: INJECT 32 UNITS UNDER THE SKIN ONCE EVERY MORNING. Sent to pharmacy as: Tresiba FlexTouch U-100 insulin 100 unit/mL (3 mL) subcutaneous pen (insulin degludec) Class: eRX Order: [id number] Date/Time Signed: 02/10/2024 13:05 E-Prescribing Status: Receipt confirmed by pharmacy (02/10/2024 1:05 PM CDT) Notes: Recent Visits Date Type Provider Dept 04/30/24 Office Visit Elsi Christian MD [facility] 04/03/24 Office Visit Elsi Christian MD [facility] 01/31/24 Office Visit Brian Israel MD Ang-Db [...] requirements Future Appointments Date Type Provider Dept 07/16/24 Appointment Brian Israel MD Ang[facility] Showing future appointments within next 150 days with a meds authorizing provider and meeting all other requirements TION SAFETY OFFICER Martha Espinosa RN [facility] 2024-06-25 15:02:38 Recent Visits Date Type Provider Dept 04/30/24 Office Visit Elsi Christian MD Ang[facility] 04/03/24 Office Visit Elsi Christian MD [facility] 01/31/24 Office Visit Brian Israel MD [facility] 12/27/23 Office Visit Brian Israel MD [facility] 11/11/23 Office Visit Brian Israel MD [facility] 07/08/23 Office Visit Brian Israel MD [facility] 06/06/23 Office Visit eNhal Titus FNP [facility] 05/05/23 Office Visit Brian Israel MD [facility] 03/08/23 Office Visit Brian Israel MD [facility] 01/18/23 Office Visit Brian Israel MD Ang[facility] Showing recent visits within past 540 days with a meds authorizing provider and meeting all other requirements Future Appointments Date Type Provider Dept 07/16/24 Appointment Brian Israel MD Ang-[facility] Showing future appointments within next 150 days with a meds authorizing provider and meeting all other requirements Last refill was Disp Refills Start End CELSO BACLOFEN 10 mg tablet 90 tablet 0 05/28/2024 -- No Sig: TAKE ONE (1) TABLET(S) BY MOUTH THREE TIMES A DAY NEEDED FOR PAIN. Sent to pharmacy as: baclofen 10 mg tablet (LIORESAL) TION SAFETY OFFICER Dara Delgado MA [facility] 2024-06-19 14:22:46 Last Refilled: Disp Refills Start End CELSO METOPROLOL TARTRATE 25 mg tablet 90 tablet 1 12/09/2023 -- No Sig: TAKE ONE-HALF (1/2) TABLET(S) BY MOUTH TWICE A DAY (MORNING AND EVENING). Sent to pharmacy as: metoprolol tartrate 25 mg tablet (LOPRESSOR) Class: eRX Notes to Pharmacy: LAST PRESCRIBED BY: DR. Dutton/Marycarmen Amaya/Crystal. Order: [id number] Date/Time Signed: 12/09/2023 10:35 E-Prescribing Status: Receipt confirmed by pharmacy (12/09/2023 10:36 AM CDT) Notes: Recent Visits Date Type Provider Dept 04/30/24 Office Visit Elsi Christian MD Ang[facility] 04/03/24 Office Visit Elsi Christian MD [facility] 01/31/24 Office Visit Jamshid Early MD [facility] Cardiology Faculty 01/31/24 Office Visit Brian Israel MD [facility] 12/27/23 Office Visit Brian Israel MD [facility] 11/11/23 Office Visit Brian Israel MD [facility] 09/21/23 Office Visit Jamshid Early MD [facility] Cardiology Faculty 07/13/23 Office Visit David Lima MD [facility] Cardiology Faculty 07/08/23 Office Visit Brian Israel MD [facility] 06/22/23 Office Visit Jamshid Early MD [facility] Cardiology Faculty Showing recent visits within past 540 days with a meds authorizing provider and meeting all other requirements Future Appointments Date Type Provider Dept 06/25/24 Appointment Jamshid Early MD [facility] Cardiology Faculty 07/16/24 Appointment Brian Israel MD Ang[facility] Showing future appointments within next 150 days with a meds authorizing provider and meeting all other requirements Office Visit on 04/30/2024 Component Date Value Wound Culture 04/30/2024 2+ Staphylococcus aureus (A) Gram stain 04/30/2024 Moderate Gram positive cocci Gram stain 04/30/2024 Numerous Polymorphonuclear leukocytes Office Visit on 04/03/2024 Component Date Value POCT HBA1C 04/03/2024 7.2 (A) Admission on 01/16/2024, Discharged on 01/16/2024 Component Date Value TROPONIN I 01/16/2024 0.031 NA 01/16/2024 141 K 01/16/2024 3.5 CL 01/16/2024 103 CO2 TOTAL 01/16/2024 31 AGAP 01/16/2024 7 BUN 01/16/2024 17 GLUCOSE 01/16/2024 74 CREATININE 01/16/2024 1.30 (H) TOTAL BILI 01/16/2024 0.8 CALCIUM 01/16/2024 9.4 T PROTEIN 01/16/2024 8.0 ALBUMIN 01/16/2024 4.0 ALK PHOS 01/16/2024 56 ALTv 01/16/2024 11 AST(SGOT) 01/16/2024 19 eGFR 01/16/2024 42.4 LIPASE 01/16/2024 52 WBC 01/16/2024 9.70 RBC 01/16/2024 4.87 HGB 01/16/2024 12.0 HCT 01/16/2024 38.8 MCV 01/16/2024 79.7 (L) MCH 01/16/2024 24.6 (L) MCHC 01/16/2024 30.9 (L) RDW-SD 01/16/2024 49.3 RDW-CV 01/16/2024 17.4 (H) PLT 01/16/2024 288 MPV 01/16/2024 10.3 NRBC/100 WBC 01/16/2024 0.0 NRBC x10 3 01/16/2024 <0.01 GRAN MAT (NEUT) % 01/16/2024 74.4 IMM GRAN % 01/16/2024 0.50 LYMPH % 01/16/2024 11.2 MONO % 01/16/2024 10.0 EOS % 01/16/2024 3.4 BASO % 01/16/2024 0.5 GRAN MAT x10 3 (ANC) 01/16/2024 7.21 (H) IMM GRAN x10 3 01/16/2024 0.05 LYMPH x10 3 01/16/2024 1.09 (L) MONO x10 3 01/16/2024 0.97 (H) EOS x10 3 01/16/2024 0.33 BASO x10 3 01/16/2024 0.05 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 Visit on 11/11/2023 Component Date Value NA 11/11/2023 136 K 11/11/2023 4.3 CL 11/11/2023 100 CO2 TOTAL 11/11/2023 29 AGAP 11/11/2023 7 BUN 11/11/2023 21 GLUCOSE 11/11/2023 104 CREATININE 11/11/2023 1.27 (H) TOTAL BILI 11/11/2023 0.6 CALCIUM 11/11/2023 8.7 T PROTEIN 11/11/2023 6.7 ALBUMIN 11/11/2023 3.6 ALK PHOS 11/11/2023 67 ALTv 11/11/2023 12 AST(SGOT) 11/11/2023 18 eGFR 11/11/2023 43.9 MAGNESIUM 11/11/2023 2.1 APPEARANCE 11/14/2023 Turbid (A) COLOR 11/14/2023 Yellow PH 11/14/2023 5.0 SP GRAVITY 11/14/2023 1.018 GLU U QUAL 11/14/2023 500 mg/dL (A) BLOOD 11/14/2023 Negative KETONES 11/14/2023 Negative PROTEIN 11/14/2023 100 mg/dL (A) UROBILIN 11/14/2023 Normal BILIRUBIN 11/14/2023 Negative NITRITE 11/14/2023 Negative LEUK MARGARET 11/14/2023 500/uL (A) RBC/HPF 11/14/2023 16 (H) WBC/HPF 11/14/2023 >182 (H) BACTERIA 11/14/2023 Many (A) MUCOUS 11/14/2023 Slight (A) WBC CLUMPS 11/14/2023 75 (H) Office Visit on 11/11/2023 Component Date Value URINE CULTURE 11/14/2023 >100,000 CFU/mL Escherichia coli (A) POCT HBA1C 11/11/2023 8.3 (A) Admission on 10/30/2023, Discharged on 10/30/2023 Component Date Value WBC 10/30/2023 10.11 RBC 10/30/2023 4.59 HGB 10/30/2023 11.4 (L) HCT 10/30/2023 38.0 MCV 10/30/2023 82.8 MCH 10/30/2023 24.8 (L) MCHC 10/30/2023 30.0 (L) RDW-SD 10/30/2023 50.7 (H) RDW-CV 10/30/2023 17.1 (H) PLT 10/30/2023 276 MPV 10/30/2023 9.9 NRBC/100 WBC 10/30/2023 0.0 NRBC x10 3 10/30/2023 <0.01 GRAN MAT (NEUT) % 10/30/2023 78.1 IMM GRAN % 10/30/2023 0.40 LYMPH % 10/30/2023 11.3 MONO % 10/30/2023 5.7 EOS % 10/30/2023 3.8 BASO % 10/30/2023 0.7 GRAN MAT x10 3 (ANC) 10/30/2023 7.90 (H) IMM GRAN x10 3 10/30/2023 0.04 LYMPH x10 3 10/30/2023 1.14 (L) MONO x10 3 10/30/2023 0.58 EOS x10 3 10/30/2023 0.38 BASO x10 3 10/30/2023 0.07 NA 10/30/2023 138 K 10/30/2023 4.1 CL 10/30/2023 103 CO2 TOTAL 10/30/2023 26 AGAP 10/30/2023 9 BUN 10/30/2023 15 GLUCOSE 10/30/2023 177 (H) CREATININE 10/30/2023 1.11 (H) CALCIUM 10/30/2023 8.9 eGFR 10/30/2023 51.6 LACTIC ACID 10/30/2023 1.21 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 Visit on 09/21/2023 Component Date Value NA 09/21/2023 141 K 09/21/2023 3.4 (L) CL 09/21/2023 102 CO2 TOTAL 09/21/2023 29 AGAP 09/21/2023 10 BUN 09/21/2023 15 GLUCOSE 09/21/2023 68 (L) CREATININE 09/21/2023 1.28 (H) CALCIUM 09/21/2023 9.0 eGFR 09/21/2023 43.5 NT-proBNP 09/21/2023 1,950 (H) MAGNESIUM 09/21/2023 2.3 WBC 09/21/2023 9.74 RBC 09/21/2023 4.41 HGB 09/21/2023 11.0 (L) HCT 09/21/2023 36.1 MCV 09/21/2023 81.9 MCH 09/21/2023 24.9 (L) MCHC 09/21/2023 30.5 (L) RDW-SD 09/21/2023 50.8 (H) RDW-CV 09/21/2023 17.2 (H) PLT 09/21/2023 231 MPV 09/21/2023 10.2 NRBC/100 WBC 09/21/2023 0.0 NRBC x10 3 09/21/2023 <0.01 GRAN MAT (NEUT) % 09/21/2023 69.0 IMM GRAN % 09/21/2023 0.40 LYMPH % 09/21/2023 16.7 MONO % 09/21/2023 8.3 EOS % 09/21/2023 5.0 BASO % 09/21/2023 0.6 GRAN MAT x10 3 (ANC) 09/21/2023 6.71 IMM GRAN x10 3 09/21/2023 0.04 LYMPH x10 3 09/21/2023 1.63 MONO x10 3 09/21/2023 0.81 EOS x10 3 09/21/2023 0.49 (H) BASO x10 3 09/21/2023 0.06 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 Visit on 06/22/2023 Component Date Value WBC 06/22/2023 8.89 RBC 06/22/2023 4.38 HGB 06/22/2023 10.7 (L) HCT 06/22/2023 35.8 MCV 06/22/2023 81.7 MCH 06/22/2023 24.4 (L) MCHC 06/22/2023 29.9 (L) RDW-SD 06/22/2023 49.4 RDW-CV 06/22/2023 17.0 (H) PLT 06/22/2023 253 MPV 06/22/2023 11.0 NRBC/100 WBC 06/22/2023 0.0 NRBC x10 3 06/22/2023 <0.01 GRAN MAT (NEUT) % 06/22/2023 77.4 IMM GRAN % 06/22/2023 0.40 LYMPH % 06/22/2023 10.8 MONO % 06/22/2023 7.0 EOS % 06/22/2023 4.0 BASO % 06/22/2023 0.4 GRAN MAT x10 3 (ANC) 06/22/2023 6.87 IMM GRAN x10 3 06/22/2023 0.04 LYMPH x10 3 06/22/2023 0.96 (L) MONO x10 3 06/22/2023 0.62 EOS x10 3 06/22/2023 0.36 BASO x10 3 06/22/2023 0.04 NA 06/22/2023 140 K 06/22/2023 3.9 CL 06/22/2023 100 CO2 TOTAL 06/22/2023 28 AGAP 06/22/2023 12 BUN 06/22/2023 24 (H) GLUCOSE 06/22/2023 120 (H) CREATININE 06/22/2023 1.69 (H) TOTAL BILI 06/22/2023 0.5 CALCIUM 06/22/2023 9.2 T PROTEIN 06/22/2023 7.2 ALBUMIN 06/22/2023 3.7 ALK PHOS 06/22/2023 58 ALTv 06/22/2023 12 AST(SGOT) 06/22/2023 19 eGFR 06/22/2023 31.2 NT-proBNP 06/22/2023 2,390 (H) MAGNESIUM 06/22/2023 2.0 TION SAFETY OFFICER Martha Espinosa RN [facility] 2024-06-18 14:38:20 Images from the original note were not included. Notes: Last Refilled: leeroy from pharmacy: Pravastatin 80mg Tablet Will file in chart as: PRAVASTATIN 80 mg tablet Sig: TAKE ONE (1) TABLET(S) BY MOUTH AT BEDTIME. Disp: 90 tablet (Pharmacy requested: 90 Each) Refills: 0 (Pharmacy requested: Not specified) Start: 06/17/2024 Class: eRX Non-formulary For: Wound of left lower extremity, initial encounter; Lymphedema of both lower extremities Last ordered: 3 months ago (03/20/2024) by Brian Israel MD Last refill: 03/20/2024 Rx #: [id number] Cardiovascular: Antilipid - HMG-CoA Reductase Inhibitors [id number]/17/2024 06:34 AM Protocol Details Total Cholesterol within 360 days LDL within 360 days HDL within 360 days Triglycerides within 360 days Valid encounter within last 12 months AST in normal range and within 360 days ALT in normal range and within 360 days To be filled at: [facility] Pharm[facility] [place], [place] - [address] [place] [address] AT [facility] [address] Recent Visits Date Type Provider Dept 04/30/24 Office Visit Elsi Christian MD [facility] 04/03/24 Office Visit Elsi Christian MD [facility] 01/31/24 Office Visit Brian Israel MD Ang-Db [...] requirements Future Appointments Date Type Provider Dept 07/16/24 Appointment Brian Israel MD Ang[facility] Med Showing future appointments within next 150 days with a meds authorizing provider and meeting all other requirements [facility] 2024-06-12 12:49:02 Error [facility] Lisha Jacobs [facility] 2024-06-05 17:01:27 Forms resent on 06/05/2024 [facility] 2024-06-05 13:14:28 Blamanoj with [employer] called requesting for forms to be faxed GI. TION SAFETY OFFICER Berna Boss [facility] 2024-06-05 10:55:00 Aden with [employer] [facility] calling in to check on status of Forms for pt's [employer] Monitor. per Aden nothing was received just yet. They are still needing clinical notes sent over as soon as possible. Per Aden these forms are time sensitive and need to be sent by the end of today. Please resend forms to both FAX#---[phone] ALTERNATIVE FAX# --- [phone] [facility] Christiane [place] [facility] 2024-06-05 09:27:44 OV attached and forms resent on 06/05/2024 [facility] 2024-06-04 11:45:50 [facility] request the last office visit to go with the form that was signed and faxed for the [employer] monitor. This is time sensitive and is needed by the end of today. She asked that this be marked as urgent. FAX#---[phone] Please Advise. [facility] Gilda Euceda [facility] 2024-06-01 08:34:06 Images from the original note were not included. Name from pharmacy: Levothyroxine 25mcg Tablet Will file in chart as: LEVOTHYROXINE 25 mcg tablet Sig: TAKE ONE (1) TABLET(S) BY MOUTH EVERY MORNING. Disp: 90 tablet (Pharmacy requested: 90 Each) Refills: 1 (Pharmacy requested: Not specified) Start: 05/31/2024 Class: eRX For: Hypothyroidism, unspecified type Last ordered: 12 months ago (06/06/2023) by RAZIA Garvin Last refill: 03/03/2024 Rx #: [id number] Endocrinology: Hypothyroid Agents Zvjifj0905/31/2024 06:51 AM Protocol Details Manual Review: ENT providers forward refill request to PCP. TSH in normal range and within 360 days Valid encounter within last 12 months Name from pharmacy: Pantoprazole 40mg DR Tablet Will file in chart as: PANTOPRAZOLE 40 mg EC tablet Sig: TAKE ONE (1) TABLET(S) BY MOUTH EVERY MORNING. Disp: 90 tablet (Pharmacy requested: 90 Each) Refills: 1 (Pharmacy requested: Not specified) Start: 05/31/2024 Class: eRX For: Gastroesophageal reflux disease, unspecified whether esophagitis present Last ordered: 12 months ago (06/06/2023) by RAZIA Garvin Last refill: 03/03/2024 Rx #: [id number] Gastroenterology: Antiulcer - Proton Pump Inhibitors Yrcpdq6905/31/2024 06:51 AM Protocol Details Valid encounter within last 12 months To be filled at: [facility] Pharm[facility] [place] [facility] [place], [place] - [address] [place] [address] AT [facility] [address] Recent Visits Date Type Provider Dept 04/30/24 Office Visit Elsi Christian MD [facility] 04/03/24 Office Visit Elsi Christian MD [facility] 01/31/24 Office Visit Brian Israel MD Ang-Db [...] requirements Future Appointments Date Type Provider Dept 07/16/24 Appointment Brian Israel MD Ang[facility] Showing future appointments within next 150 days with a meds authorizing provider and meeting all other requirements TION SAFETY OFFICER Allison Vasquez MA [facility] 2024-05-28 09:00:31 Please review and sign if appropriate: Last office visit: 04/30/24 Next office visit: 05/28/24 Requested Prescriptions Pending Prescriptions Disp Refills BACLOFEN 10 mg tablet [Pharmacy Med Name: Baclofen 10mg Tablet] 90 tablet 0 Sig: TAKE ONE (1) TABLET(S) BY MOUTH THREE TIMES A DAY NEEDED FOR PAIN. Last fill date: 04/26/24 Notes: Restless leg syndrome Chronic deep vein thrombosis (DVT) of proximal vein of right lower extremity [facility] 2024-05-25 12:18:30 Received Prior Authorization from [employer], have placed in provider's box for review. TION SAFETY OFFICER Tara Rubio [facility] 2024-05-15 15:16:58 Received Neuro Lab report from [facility]. Placed in Providers box. TION SAFETY OFFICER Amrita Soto [facility] 2024-05-15 08:32:02 Duplicate encounter. Closing out. [facility] 2024-05-15 08:31:09 Please review. Refer to telephone encounter from 05/14/24 [facility] 2024-05-14 17:19:45 Ivett Bran is a 78 year old female Pt is calling back stating they received a call and was unsure as to what it was for. I informed pt the call was an update for their provider about their blood pressure and the pt stated they are feeling no symptoms and are actually feeling great. Pt states they took their rx a little before the home health nurse arrived but today they've felt better than they have in a while and just wanted to update provider on condition. [facility] Fatimah Dyson [facility] 2024-05-14 17:03:35 Attempted to call to inquire about patient's symptoms, no answer, left VM [facility] 2024-05-14 14:11:01 ATC patient to f/u for any s/s of HTN LMTCB Lou Tomlin LVN 05/14/2024 Please review RATNA 04/30/24 NOV 05/28/24 [facility] 2024-05-14 13:52:[address] [facility] is notifying the clinic that the patient's blood pressure was 175/77. Patient had taken blood pressure medication before blood pressure was taken. EET Frank [facility] 2024-05-11 14:47:18 Wound care orders faxed to [facility]. EET Meyer RN [facility] 2024-05-10 11:20:[address] inhab[address] to let dr know pt has a wound that has reopened on her right ankle. They would like orders wound care put in for this pt EET Parson [facility] 2024-05-09 16:13:07 Esther was under Oncology. Asking for refills. Will route to Dr. Early for approval. EET Souza MA [facility] 2024-05-09 13:39:41 Last Refilled: Disp Refills Start End CELSO CLOPIDOGREL 75 mg tablet 30 tablet 0 03/21/2024 -- No Sig: TAKE ONE (1) TABLET(S) BY MOUTH ONCE A DAY IN THE MORNING. Sent to pharmacy as: clopidogreL 75 mg tablet (PLAVIX) Class: eRX Order: [id number] Date/Time Signed: 03/21/2024 08:23 E-Prescribing Status: Receipt confirmed by pharmacy (03/21/2024 8:23 AM CDT) Recent Visits Date Type Provider Dept 04/30/24 Office Visit Elsi Christian MD [facility] 04/03/24 Office Visit Elsi Christian MD [facility] 01/31/24 Office Visit Brian Israel MD [facility] 12/27/23 Office Visit Brian Israel MD [facility] 11/11/23 Office Visit Brian [...] requirements Future Appointments Date Type Provider Dept 07/16/24 Appointment Brian Israel MD [facility] Showing future appointments within next 150 days with a meds authorizing provider and meeting all other requirements TION SAFETY OFFICER Olga Warner [facility] 2024-05-02 16:01:46 Ivett Bran is a 78 year old female Patient is calling to state that she will be unable to see a wound care doctor in [place] due to the distance from her home and her current condition making travel very difficult. Patient states that she has nurses that are providing wound care. Please advise. Lj Conde [facility] 2024-05-02 09:10:14 Spoke with [facility] nurse and clarified wound care instructions per Dr. Christian: Once daily,Cleanse with normal SN, Pat dry, apply santyl, cover with dry 4x4 gauze and secure with tape. Martha Espinosa RN [facility] 2024-05-02 08:59:14 Referral sent to [facility] F:[phone] Martha Espinosa RN [facility] 2024-05-02 08:42:19 Ivett Bran is a 78 year old female Nesha from (wound care) is calling needing clarifications on wound care order. Need to clarify Frequency of dressing change, if you want to use santyl cream and do they need to do wet to dry dressing. P: [phone] Please advise Jay Wen [facility] 2024-05-01 15:12:24 Nesha with [facility] ([facility] [phone] [facility] 2024-05-01 14:51:46 Ivett Bran is a 78 year old female and Nesha is the [facility] nurse calling about the wound care orders faxed yesterday 04/30/24. The orders have not been processed yet for the facility and [facility] is asking for verbal orders for today's home visit. Anna Guadarrama [facility] 2024-04-27 09:47:45 Name: Ivett Bran Date: 04/30/2024 Status: [facility] Arrival Time: 12:45 PM Length: 20 Visit Type: ESTABLISHED SICK VISIT [882] Copay: Provider: Elsi Christian MD Department: ANG-DB [facility] FAM MED Spoke with the patient she is unable to come in today. She's scheduled to come in on Tuesday. Nichelle Mcguire [facility] 2024-04-27 07:37:32 Last Refilled: Disp Refills Start End CELSO furosemide 40 mg tablet 180 tablet 0 01/31/2024 -- No Sig: TAKE ONE (1) TABLET BY MOUTH EVERY MORNING AND EVENING. Sent to pharmacy as: furosemide 40 mg tablet (LASIX) Class: eRX Order: [id number] Date/Time Signed: 01/31/2024 09:33 E-Prescribing Status: Receipt confirmed by pharmacy (01/31/2024 9:33 AM CDT) Notes: Please review Recent Visits Date Type Provider Dept 04/03/24 Office Visit Elsi Christian MD [facility] 01/31/24 Office Visit Brian Israel MD Ang-Db [...] requirements Future Appointments Date Type Provider Dept 07/16/24 Appointment Kley, Brian, MD [facility] Showing future appointments within next 150 days with a meds authorizing provider and meeting all other requirements Office Visit on 04/03/2024 Component Date Value POCT HBA1C 04/03/2024 7.2 (A) Admission on 01/16/2024, Discharged on 01/16/2024 Component Date Value TROPONIN I 01/16/2024 0.031 NA 01/16/2024 141 K 01/16/2024 3.5 CL 01/16/2024 103 CO2 TOTAL 01/16/2024 31 AGAP 01/16/2024 7 BUN 01/16/2024 17 GLUCOSE 01/16/2024 74 CREATININE 01/16/2024 1.30 (H) TOTAL BILI 01/16/2024 0.8 CALCIUM 01/16/2024 9.4 T PROTEIN 01/16/2024 8.0 ALBUMIN 01/16/2024 4.0 ALK PHOS 01/16/2024 56 ALTv 01/16/2024 11 AST(SGOT) 01/16/2024 19 eGFR 01/16/2024 42.4 LIPASE 01/16/2024 52 WBC 01/16/2024 9.70 RBC 01/16/2024 4.87 HGB 01/16/2024 12.0 HCT 01/16/2024 38.8 MCV 01/16/2024 79.7 (L) MCH 01/16/2024 24.6 (L) MCHC 01/16/2024 30.9 (L) RDW-SD 01/16/2024 49.3 RDW-CV 01/16/2024 17.4 (H) PLT 01/16/2024 288 MPV 01/16/2024 10.3 NRBC/100 WBC 01/16/2024 0.0 NRBC x10 3 01/16/2024 <0.01 GRAN MAT (NEUT) % 01/16/2024 74.4 IMM GRAN % 01/16/2024 0.50 LYMPH % 01/16/2024 11.2 MONO % 01/16/2024 10.0 EOS % 01/16/2024 3.4 BASO % 01/16/2024 0.5 GRAN MAT x10 3 (ANC) 01/16/2024 7.21 (H) IMM GRAN x10 3 01/16/2024 0.05 LYMPH x10 3 01/16/2024 1.09 (L) MONO x10 3 01/16/2024 0.97 (H) EOS x10 3 01/16/2024 0.33 BASO x10 3 01/16/2024 0.05 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 Visit on 11/11/2023 Component Date Value NA 11/11/2023 136 K 11/11/2023 4.3 CL 11/11/2023 100 CO2 TOTAL 11/11/2023 29 AGAP 11/11/2023 7 BUN 11/11/2023 21 GLUCOSE 11/11/2023 104 CREATININE 11/11/2023 1.27 (H) TOTAL BILI 11/11/2023 0.6 CALCIUM 11/11/2023 8.7 T PROTEIN 11/11/2023 6.7 ALBUMIN 11/11/2023 3.6 ALK PHOS 11/11/2023 67 ALTv 11/11/2023 12 AST(SGOT) 11/11/2023 18 eGFR 11/11/2023 43.9 MAGNESIUM 11/11/2023 2.1 APPEARANCE 11/14/2023 Turbid (A) COLOR 11/14/2023 Yellow PH 11/14/2023 5.0 SP GRAVITY 11/14/2023 1.018 GLU U QUAL 11/14/2023 500 mg/dL (A) BLOOD 11/14/2023 Negative KETONES 11/14/2023 Negative PROTEIN 11/14/2023 100 mg/dL (A) UROBILIN 11/14/2023 Normal BILIRUBIN 11/14/2023 Negative NITRITE 11/14/2023 Negative LEUK MARGARET 11/14/2023 500/uL (A) RBC/HPF 11/14/2023 16 (H) WBC/HPF 11/14/2023 >182 (H) BACTERIA 11/14/2023 Many (A) MUCOUS 11/14/2023 Slight (A) WBC CLUMPS 11/14/2023 75 (H) Office Visit on 11/11/2023 Component Date Value URINE CULTURE 11/14/2023 >100,000 CFU/mL Escherichia coli (A) POCT HBA1C 11/11/2023 8.3 (A) Admission on 10/30/2023, Discharged on 10/30/2023 Component Date Value WBC 10/30/2023 10.11 RBC 10/30/2023 4.59 HGB 10/30/2023 11.4 (L) HCT 10/30/2023 38.0 MCV 10/30/2023 82.8 MCH 10/30/2023 24.8 (L) MCHC 10/30/2023 30.0 (L) RDW-SD 10/30/2023 50.7 (H) RDW-CV 10/30/2023 17.1 (H) PLT 10/30/2023 276 MPV 10/30/2023 9.9 NRBC/100 WBC 10/30/2023 0.0 NRBC x10 3 10/30/2023 <0.01 GRAN MAT (NEUT) % 10/30/2023 78.1 IMM GRAN % 10/30/2023 0.40 LYMPH % 10/30/2023 11.3 MONO % 10/30/2023 5.7 EOS % 10/30/2023 3.8 BASO % 10/30/2023 0.7 GRAN MAT x10 3 (ANC) 10/30/2023 7.90 (H) IMM GRAN x10 3 10/30/2023 0.04 LYMPH x10 3 10/30/2023 1.14 (L) MONO x10 3 10/30/2023 0.58 EOS x10 3 10/30/2023 0.38 BASO x10 3 10/30/2023 0.07 NA 10/30/2023 138 K 10/30/2023 4.1 CL 10/30/2023 103 CO2 TOTAL 10/30/2023 26 AGAP 10/30/2023 9 BUN 10/30/2023 15 GLUCOSE 10/30/2023 177 (H) CREATININE 10/30/2023 1.11 (H) CALCIUM 10/30/2023 8.9 eGFR 10/30/2023 51.6 LACTIC ACID 10/30/2023 1.21 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 Visit on 09/21/2023 Component Date Value NA 09/21/2023 141 K 09/21/2023 3.4 (L) CL 09/21/2023 102 CO2 TOTAL 09/21/2023 29 AGAP 09/21/2023 10 BUN 09/21/2023 15 GLUCOSE 09/21/2023 68 (L) CREATININE 09/21/2023 1.28 (H) CALCIUM 09/21/2023 9.0 eGFR 09/21/2023 43.5 NT-proBNP 09/21/2023 1,950 (H) MAGNESIUM 09/21/2023 2.3 WBC 09/21/2023 9.74 RBC 09/21/2023 4.41 HGB 09/21/2023 11.0 (L) HCT 09/21/2023 36.1 MCV 09/21/2023 81.9 MCH 09/21/2023 24.9 (L) MCHC 09/21/2023 30.5 (L) RDW-SD 09/21/2023 50.8 (H) RDW-CV 09/21/2023 17.2 (H) PLT 09/21/2023 231 MPV 09/21/2023 10.2 NRBC/100 WBC 09/21/2023 0.0 NRBC x10 3 09/21/2023 <0.01 GRAN MAT (NEUT) % 09/21/2023 69.0 IMM GRAN % 09/21/2023 0.40 LYMPH % 09/21/2023 16.7 MONO % 09/21/2023 8.3 EOS % 09/21/2023 5.0 BASO % 09/21/2023 0.6 GRAN MAT x10 3 (ANC) 09/21/2023 6.71 IMM GRAN x10 3 09/21/2023 0.04 LYMPH x10 3 09/21/2023 1.63 MONO x10 3 09/21/2023 0.81 EOS x10 3 09/21/2023 0.49 (H) BASO x10 3 09/21/2023 0.06 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 Visit on 06/22/2023 Component Date Value WBC 06/22/2023 8.89 RBC 06/22/2023 4.38 HGB 06/22/2023 10.7 (L) HCT 06/22/2023 35.8 MCV 06/22/2023 81.7 MCH 06/22/2023 24.4 (L) MCHC 06/22/2023 29.9 (L) RDW-SD 06/22/2023 49.4 RDW-CV 06/22/2023 17.0 (H) PLT 06/22/2023 253 MPV 06/22/2023 11.0 NRBC/100 WBC 06/22/2023 0.0 NRBC x10 3 06/22/2023 <0.01 GRAN MAT (NEUT) % 06/22/2023 77.4 IMM GRAN % 06/22/2023 0.40 LYMPH % 06/22/2023 10.8 MONO % 06/22/2023 7.0 EOS % 06/22/2023 4.0 BASO % 06/22/2023 0.4 GRAN MAT x10 3 (ANC) 06/22/2023 6.87 IMM GRAN x10 3 06/22/2023 0.04 LYMPH x10 3 06/22/2023 0.96 (L) MONO x10 3 06/22/2023 0.62 EOS x10 3 06/22/2023 0.36 BASO x10 3 06/22/2023 0.04 NA 06/22/2023 140 K 06/22/2023 3.9 CL 06/22/2023 100 CO2 TOTAL 06/22/2023 28 AGAP 06/22/2023 12 BUN 06/22/2023 24 (H) GLUCOSE 06/22/2023 120 (H) CREATININE 06/22/2023 1.69 (H) TOTAL BILI 06/22/2023 0.5 CALCIUM 06/22/2023 9.2 T PROTEIN 06/22/2023 7.2 ALBUMIN 06/22/2023 3.7 ALK PHOS 06/22/2023 58 ALTv 06/22/2023 12 AST(SGOT) 06/22/2023 19 eGFR 06/22/2023 31.2 NT-proBNP 06/22/2023 2,390 (H) MAGNESIUM 06/22/2023 2.0 Office Visit on 05/23/2023 Component Date Value POCT HBA1C 05/23/2023 8.7 (A) Martha Espinosa RN [facility] 2024-04-27 06:19:00 Please call Mrs. Bran to schedule an OV with Dr. Christian preferably today. I am worried her foot is infected. Here is a pasted transcript from the nurse for her to review. "I spoke with Ms. Bran today and she said she has a new "blister" opened up on her heel but it looks like more than that to me. I am sending you an email with the picture they sent as I can't get it to you any other way. Ms. Bran said the PT from [facility] saw it this morning and sent a picture but not sure to which MD. Patient has a temperature of 99 degrees which she said is a fever for her. She said there is brownish residue on her pillow her foot is resting on and it sounds like dried blood. She could not see any pus or gooey drainage. She has been resting in her hospital bed with feet elevated after she finished her PT workout. She said her leg is swelling but the swelling is coming down now she has been resting. She is urinating and has regular BM's, appetite is good. She said she had thrush a few weeks ago and described dry mouth and whitish tongue. She said she is coughing up mucus and sounds congested and described the mucus as white and foamy. She previously swished with salt water and said the thrush cleared up. She reports today's BP was 148/78 and her BG was 159. She has not picked up the CGM yet. What would you recommend? Do you want to see her in the clinic? Thanks so much for your assistance" [facility] 2024-04-26 16:01:35 Please review and advise. RATNA 04/03/24 NOV 07/16/24 [facility] 2024-04-26 15:18:41 CHRISSY Melgar Nurse Gang Rider with [facility] is wanting to notify Dr Israel that pt has a heel ulcer on the bottom left an shows no leakage but will up load photo for Dr Israel to see. Per CHRISSY Melgar pt has a temp of 99.0 and sound complicated saying that has health issues of sugar 159, blood pressure of 148/78 and for weeks has had oral thrush but states has more white coating on tongue. CHRISSY Melgar is not currently with pt. Norma Berrios [facility] 2024-04-26 08:22:53 Medication refilled per policy: Last office visit: 04/03/24 Next office visit: 07/16/24 Requested Prescriptions Pending Prescriptions Disp Refills BACLOFEN 10 mg tablet [Pharmacy Med Name: Baclofen 10mg Tablet] 90 tablet 1 Sig: TAKE ONE (1) TABLET(S) BY MOUTH THREE TIMES A DAY NEEDED FOR PAIN. Last fill date: 02/24/24 Notes: Restless leg syndrome Chronic deep vein thrombosis (DVT) of proximal vein of right lower extremity [facility] 2024-04-19 10:49:04 Pt has NM stress test scheduled for next week. Ann Hassan RN [facility] 2024-04-18 16:20:23 Ivett Bran is a 78 year old female Pt needing an Stress Test Scheduled. Eugene Mercado [facility] 2024-04-18 13:02:50 Forms faxed on 04/18/2024 [facility] 2024-04-18 11:40:42 Ivett with [employer] is calling to follow up on the forms from [employer]. Ivett said the best fax to send it to them would be [phone]. Please advise. Giorgi Escalante [facility] 2024-03-29 15:57:54 Comprehensive Neurology Testing requisition form received and pending Provider review. RATNA 01/31/24 NOV 04/03/24-Dr. Christian T [facility] 2024-03-27 10:56:55 Received written order from [employer], requesting Providers signature. Placed in Providers box. Amrita Soto [facility] 2024-03-21 08:11:44 Duplicate encounter. Refer to telephone encounter dated 03/14/24. Closing out. [facility] 2024-03-20 09:25:44 Images from the original note were not included. Notes: Last Refilled: Name from pharmacy: Pravastatin 80mg Tablet Will file in chart as: PRAVASTATIN 80 mg tablet Sig: TAKE ONE (1) TABLET(S) BY MOUTH AT BEDTIME. Disp: 90 tablet (Pharmacy requested: 90 Each) Refills: 0 (Pharmacy requested: Not specified) Start: 03/20/2024 Class: eRX For: Wound of left lower extremity, initial encounter; Lymphedema of both lower extremities Last ordered: 2 months ago (12/22/2023) by Brian Israel MD Last refill: 12/22/2023 Rx #: [id number] Cardiovascular: Antilipid - HMG-CoA Reductase Inhibitors Gemwmw1303/20/2024 08:36 AM Protocol Details Total Cholesterol within 360 days LDL within 360 days HDL within 360 days Triglycerides within 360 days Valid encounter within last 12 months AST in normal range and within 360 days ALT in normal range and within 360 days To be filled at: [facility] [place], [place] - [address] Recent Visits Date Type [...] requirements Future Appointments Date Type Provider Dept 03/27/24 Appointment Elsi Christian MD [facility] Showing future appointments within next 150 days with a meds authorizing provider and meeting all other requirements [facility] 2024-03-17 13:40:07 Received Comprehensive Neurology Testing Requisition Form from [employer] and have placed in provider's box. Tara Rubio [facility] 2024-03-15 13:31:45 Form for Comprehensive Neurology Testing recd from [employer] and pending Provider review. RATNA 01/31/24-Lindy NOV 03/20/24-Michael [facility] 2024-03-09 17:31:17 Continue to monitor BP. Bring log to next OV. [facility] 2024-03-09 16:15:46 Patient checked BP at time of call and it was 157/72 HR 87. She stated has had an ongoing headache r/t sinus pressure and denied worsening. She also denied changes to DVT and reported compliance with Eliquis. Please review and advise. NOV 03/13/24 [facility] 2024-03-09 15:49:02 [facility] calling to let dr know bp is 169/76 and they also have headache when seen in home. Pt also has a clot in the right leg and the want to know if pt needs therapy Lyndsay Parson [facility] 2024-03-01 15:55:57 Dr. Early reviwed and completed for oral surgery. Faxed back officer visit notes. Ankit Brooke MA [facility] 2024-03-01 09:57:40 Received cardiac clearance from Dr. Arteaga's office, placed in Dr. Earyl's folder for review. Thank you. Suzan Raoms MA [facility] 2024-02-22 09:33:18 Images from the original note were not included. Notes: 12/22/23 Last Refilled: [facility] [place] [address] Recent Visits Date [...] Israel MD Last refill: 01/20/2024 Rx #: [id number] Provider Review Required Gayden6302/22/2024 06:40 AM Protocol Details This refill cannot be delegated Valid encounter within last 12 months To be filled at: [facility] [address] Sirena Galaviz MA [facility] 2024-02-15 09:11:01 Spoke with Candice Taylor. Will fax surgery clearance for Dr. Soares Evita Blanchard MA [facility] 2024-02-10 09:18:15 [facility] dental requesting clearance to hold blood thinners for planned extractions. [facility]. [phone] Fx. [phone] Early, "Please note patient taking Plavix from the vascular standpoint. Would recommend getting vascular surgery clearance also to stopping the Plavix perioperatively." [facility] 2024-02-10 09:08:06 Discussed recommendations with patient she verbalized understanding via teach back. Faxed Dr. Early's note to [facility]. Message sent to vascular regarding holding Plavix. [facility] 2024-02-09 21:49:46 Last office note updated. Please [...] perioperatively. Albert Early MD 02/09/2024 9:46 PM Radiator Core Tester, Division of Cardiology [facility] 2024-02-09 13:13:42 Fax form received. Placed in MDs inbox folder for chart review. Too Souza MA [facility] 2024-02-09 11:01:35 Images from the original note were not included. Notes: 09/28/23 Last Refilled: [facility] [place], [place] - [address] Recent Visits Date Type [...] Wyatt MD Last refill: 12/26/2023 Rx #: [id number] Endocrinology: Diabetes - Insulins Pmmvyt6502/09/2024 06:49 AM Protocol Details Manual review: Staff refilling for [facility], Cr lab not required to refill Cr in normal range and within 360 days Valid encounter within last 12 months HBA1C within 180 days To be filled at: [facility] [address] Sirena Galaviz MA [facility] 2024-02-09 09:49:07 Ivett Bran is a 78 year old female Mariely quick/Candice Taylor calling to cardiac clearance for pt to have dental extractions. Pt takes blood thinners. Please advise. Mariely is sending request in today. Please send to Candice Taylor Ph. [phone] Fx. [phone] Steven Bustos [facility] 2024-02-01 15:56:53 Anabella with [facility] Curse is informing the clinic that the patients blood sugar is 311. Patient had a hamburger and onion rings for dinner and she has not taking her insulin today. Insulin was administered during visit. Dileep Frank [facility] 2024-01-30 16:55:49 Images from the original note were not included. Cr not in range Notes: 06/24/23 Last Refilled: [facility] [place] [facility] [place] [place] [facility] [address] [facility] [address] Recent Visits Date Type [...] Early MD Last refill: 10/28/2023 Rx #: [id number] Cardiovascular: Loop Diuretics Pllxem5801/29/2024 06:50 AM Protocol Details Cr in normal range and within 180 days Valid encounter within last 12 months K in normal range and within 180 days To be filled at: [facility] [place], [place] - [address] [place] [address] Drive [address] Sirena Galaviz MA [facility] 2024-01-17 15:46:39 TRANSITIONAL CARE MANAGEMENT ASSESSMENT 01/17/2024 Ivett Bran [id number] Ivett Bran is a 78 year old /White female was admitted on 01/16/24 to [facility]. She was discharged on 01/16/24 with discharge disposition of HR- Routine Discharge. Admitting Physician: Discharge Diagnosis: SOB (shortness of breath) Cardiomegaly Acute pulmonary edema No linked episodes TCM Pdg-ffey-ab-face outreach documentation: Future Appointments: Future Appointments Provider Department Dept Phone 01/30/2024 10:30 AM Jamshid Early MD [facility] [phone] 01/31/2024 10:40 AM Brian Israel MD [facility] [phone] 03/08/2024 9:40 AM Xenia Lomeli MD [facility] [phone] 04/10/2024 1:00 PM Jayden Mitchell MD [facility] [phone] Transition CM attempted to contact patient x2. CM left a discreet voicemail explaining purpose of call and call back information. Abigail Ley RN, MSN, MEDSURG-BC, CCRN, [facility] Transitions of Software Sales Manager Proficient Hardboard Press Operator Ambulatory Referral Coordination Office: [phone] Abigail Ley RN [facility] 2024-01-17 11:24:39 CM LVM to return call. Will attempt again at a later time. [facility] 2024-01-16 20:28:09 Pt given printed and verbal [...] resp reg unlabored, skin w/d, pt with [facility] on stretcher, in no apparent distress, Mitesh Warner RN [facility] 2024-01-16 18:54:57 Nurse Report Report given to CHRISSY Warner. Chief complaint, assessment findings, infusion verify and orders reviewed. Plan of care discussed with both nurses. Lucia Rodriguez RN Lucia Rodriguez RN [facility] 2024-01-16 15:52:55 Pt arrived via pov c/o SOB per daughter in law that started today. Pt is currently on antibiotics for UTI. Ann Hernadez RN [facility] 2023-12-22 13:40:29 Sent. T [facility] 2023-12-22 11:10:39 Please review and refill if appropriate [facility] 2023-12-22 10:01:39 Copied from [facility] #[id number]. Topic: Clinical - Order >> Dec 22, 2023 10:00 AM Patient Teaching Assistant wrote: Pts caregiver Flora is calling and states the pt is needing a refill on her baclofen 10 mg. Flora says the pt is out of this med and [facility] has been trying to get it filled since 12-08-23. Please advise on refill, thank you! [facility] [place], [place] - [address] [place] [address] AT [facility] [address] [place] [id number] [address] Giorgi Escalante [facility] 2023-12-09 10:35:10 Last Refilled: metoprolol tartrate 25 mg tablet 90 tablet 1 07/20/2022 -- No Sig: Take 0.5 tablets by mouth in the morning and 0.5 tablets in the evening. Sent to pharmacy as: metoprolol tartrate 25 mg tablet (LOPRESSOR) Class: eRX Route: Oral Order: [id number] Date/Time Signed: 07/20/2022 15:39 E-Prescribing Status: Receipt confirmed by pharmacy (07/20/2022 3:39 PM AVIATION SAFETY OFFICER) Recent Visits Date Type Provider Dept 11/11/23 Office Visit Brian Israel MD [facility] Med 09/21/23 Office Visit Jamshid Early MD [facility] Cardiology Faculty 07/13/23 Office Visit David Lima MD [facility] Cardiology Faculty 07/08/23 Office Visit Brian Israel MD [facility] 06/22/23 Office Visit Jamshid Early MD [facility] Cardiology Faculty 06/06/23 Office Visit Nehal Titus FNP [facility] 05/05/23 Office Visit Brian Israel MD [facility] 04/27/23 Office Visit David Lima MD [facility] Cardiology Faculty 03/08/23 Office Visit Brian Israel MD [facility] 01/18/23 Office Visit Brian Israel MD [facility] Showing recent visits within past 540 days with a meds authorizing provider and meeting all other requirements Future Appointments Date Type Provider Dept 12/16/23 Appointment Jamshid Early MD [facility] Cardiology Faculty 12/27/23 Appointment Brian Israel MD [facility] Showing future appointments within next 150 days with a meds authorizing provider and meeting all other requirements Olga Warner [facility] 2023-12-07 07:03:02 Notes: Please Review Last Refilled: [...] to Pharmacy: Sending Erx refill request Order: [id number] Date/Time Signed: 11/01/2023 12:32 E-Prescribing Status: Receipt [...] Dept 12/27/23 Appointment Brian Israel MD [facility] Showing future appointments within next 150 days with a meds authorizing provider and meeting all other requirements Olga Warner [facility] 2023-12-06 14:41:51 Spoke with she doesn't know if she wants to go to ER, will make a decision in a few days and let us know. Olga Warner [facility] 2023-12-06 13:26:04 I recommend ER evaluation. She has a complicated medical history, and I am worried she did not improve on the antibiotics I sent. I want her to be evaluated thoroughly and quickly. Dr. Lindy Whyte [facility] 2023-12-06 12:39:31 Copied from [facility] #[id number]. Topic: Clinical - Medical Advice >> Dec 06, 2023 12:38 PM Patient Teaching Assistant wrote: Ivett Bran is a 77 year old female Lilliam with [facility] is calling back to speak with clinical staff; she is concerned because Pt still is not feeling any better. Please advise. Essence Marino [facility] 2023-12-05 16:45:21 Please review and advise. [facility] 2023-12-05 13:30:29 Copied from [facility] #[id number]. Topic: Clinical - Medical Advice >> Dec 05, 2023 1:28 PM Patient Teaching Assistant wrote: Lilliam with [facility] is notifying the clinic that the patient finished Antibiotics for bladder infection. Patient is nauseated and throwing up and is not feeling well. Urine is yellow and cloudy and has an odor. Please advise. Lilliam is not with the patient. Dileep Frank [facility] 2023-11-21 15:30:35 Called pt, said she was nauseated prior to abx. Sent Zofran. Will add on to clinic day tomorrow if she feels worse. [facility] 2023-11-21 14:51:25 Please review and advise. Martha Espinosa RN [facility] 2023-11-21 13:20:55 Copied from [facility] #[id number]. Topic: Clinical - Medical Advice >> November 21, 2023 1:19 PM Patient Teaching Assistant wrote: Lilliam with [facility] states the pt has been throwing up and feeling nauseous do to the antibiotics for her UTI. Lilliam is asking if something can be called into the pharmacy to help, please advise. Lilliam said to call the pt back at: [phone] [facility] [place], [place] - [address] AT [facility] [address] [facility] [address] Giorgi Escalante [facility] 2023-11-14 12:00:00 Patient presented with specimen for drop-off and was identified by and name. Collection information/ total volume were documented accordingly. The following specimens were sent to [facility] laboratories per lab order on 11/14/2023 : 24 hour urine Random urine 1 Stool Swab Other T [facility] 2023-11-11 12:15:00 Images from the original note were not included. Venipuncture collection performed by clean technique on the left anticubitus. Total of 1 attempts were made. Slight pressure and a bandage/dressing were applied to the site(s). The patient experienced no complications. The following specimens were processed according to instructions and sent to [facility] laboratories per lab order on 11/11/2023 [...] Urine Culture Aptima tube Other urine T [facility] 2023-11-11 10:40:00 Addended by: BRIAN ISRAEL on: 11/11/2023 02:16 PM Modules accepted: Level of Service T [facility] 2023-11-08 08:37:03 FYI Arcelia Dumont LVN [facility] 2023-11-07 14:30:08 Ivett Bran is a 77 year old female and Mare a nurse with [facility] is calling about the pts blood sugar levels over the weekend while 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 Mare stated that the pts Blood sugar on Tuesday was at 344 and on Tuesday was at 490. Mare gave the pt insulin on Tuesday, but not Tuesday due to the pt not remembering if she took insulin that day or not. Mare mentioned that the care givers stated she has been not remembering to take her insulin and has been non compliant when they remind her about taking the insulin. Anna Guadarrama [facility] 2023-11-03 15:33:19 Images from the original note [...] or concerns? no VIPIN Angulo, RN, CCRN Software Sales Manager, Transitions of Care [email or web address] Bridgette Black RN [facility] 2023-11-01 13:46:17 Corrected and resent Yolanda Solomon LVN [facility] 2023-11-01 07:27:20 Notes: Please Review Last Refilled: [...] to Pharmacy: Sending Erx refill request Order: [id number] Date/Time Signed: 09/05/2023 09:30 E-Prescribing Status: Receipt confirmed by pharmacy (09/05/2023 9:30 AM AVIATION SAFETY OFFICER Recent Visits Date Type Provider Dept 07/08/23 [...] Dept 11/11/23 Appointment Brian Israel MD Ang-Db [facility] Med Showing future appointments within next 150 days with a meds authorizing provider and meeting all other requirements Olga Warner [facility] 2023-10-30 17:38:55 Paatient dc home. Follow up with pcp. Verbalized understanding. Signed paper work for dc. Colten Miranda RN [facility] 2023-10-30 14:33:31 Patient arrived in wheelchair with caregiver c/o of a diabetic leg wound. Home health nurse came out today to do wound care and the nurse di not like the coloring of the wound per patient and wanted her to get the wound checked out. Lucia Rodriguez RN [facility] 2023-10-28 09:20:55 Ivett Bran is a 77 year old [place] /[facility] Pharmacy is calling to request clarification for semaglutide (OZEMPIC) 2 mg/dose (8 mg/3 mL) PnIj, Pharmacist states, prescription was sent without directions, Please advise [facility] Pharmacy [place] [address] Anabella Almonte [facility] 2023-10-27 11:45:31 Ivett Bran is a 77 year old female [facility] pharmacy is calling for directions on Ozempic. Please call [facility] [address] Ana Kelly [facility] 2023-10-27 09:59:32 RATNA 05/23/23 NOV 11/22/23 Patient's dose increased by Dr. Haynes on 07/12/23 to 2mg weekly. Yolanda Solomon LVN [facility] 2023-10-27 07:45:12 Images from the original note [...] Israel MD Last refill: 07/04/2023 Rx #: [id number] Controlled Substance Wacgvz2110/26/2023 07:26 PM Protocol Details Valid encounter within last 3 months This refill cannot be delegated Pain agreement on file To be filled at: [facility] [address] [facility] [address] Recent Visits Date Type [...] meeting all other requirements Arcelia Dumont LVN [facility] 2023-10-14 13:16:06 Ivett Bran is a 77 year old female patient had a fall/stumble earlier in the week had a tear in skin on elbow, but wound is fine already scabbed over. Please call with any questions. [phone] Talia Garcia [facility] 2023-10-11 14:27:36 Medical records request form received from [employer] faxed to HIM to process Zeenat Bobo [facility] 2023-10-10 11:30:[address] in provider [employer] and faxed over today Sirena Galaviz MA [facility] 2023-09-28 08:23:06 Images from the original note [...] Israel MD Last refill: 08/15/2023 Rx #: [id number] Endocrinology: Diabetes - Insulins Odzwis6709/28/2023 06:43 AM Protocol Details Manual review: Staff refilling for [facility], Cr lab not required to refill Cr in normal range and within 360 days Valid encounter within last 12 months HBA1C within 180 days To be filled at: [facility] Pharmacy [address] [place] CREATININE (mg/dL) Date Value 09/21/2023 1.28 (H) [...] meeting all other requirements Arcelia Dumont LVN [facility] 2023-09-23 11:41:50 Looks like she is on 40 mg? Has dose been changed? Shahzad Wyatt MD FM-FAMILY MEDICINE STAFF [facility] 2023-09-22 13:41:22 Images from the original note were not included. Requested Renewals Name from pharmacy: Pravastatin 80mg Tablet Will file in chart as: PRAVASTATIN 80 mg tablet The original prescription was discontinued on 04/19/2023 by Shahzad Pro, GARBAGE TRUCK DISPATCHER. Renewing this prescription may not be appropriate. Sig: TAKE ONE (1) TABLET(S) BY MOUTH AT BEDTIME. Disp: 90 tablet (Pharmacy requested: 90 Each) Refills: 3 (Pharmacy requested: Not specified) Start: 09/22/2023 Class: eRX For: Wound of left lower extremity, initial encounter; Lymphedema of both lower extremities Last ordered: 1 year ago (09/06/2022) by Brian Israel MD Last refill: 02/25/2023 Rx #: [id number] Cardiovascular: Antilipid - HMG-CoA Reductase Inhibitors Xdapwm6309/22/2023 01:23 PM Protocol Details Valid encounter within last 12 months Total Cholesterol within 360 days LDL within 360 days HDL within 360 days Triglycerides within 360 days AST in normal range and within 360 days ALT in normal range and within 360 days To be filled at: [facility] [place] [place] [facility] Recent Visits Date Type [...] meeting all other requirements Arcelia Dumont LVN [facility] 2023-09-21 10:35:05 Contacted migdalia to have form refaxed will place in provider bx once received [facility] 2023-09-21 10:30:00 Images from the original note were not included. Venipuncture collection performed by clean technique on the left anticubitus. Total of 1 attempts were made. Slight pressure and a bandage/dressing were applied to the site(s). The patient experienced no complications. The following specimens were processed according to instructions and sent to [facility] laboratories per lab order on 09/21/2023 : LT BLUE SST 1 RED LAV 1 PPT DK GREEN (LiHep) DK GREEN (SodH) DERAS DK BLUE (K2) DK BLUE (S) ACD Blood Culture NIPT/NTD Early orders per pt request T [facility] 2023-09-20 09:57:33 Attempted to contact migdalia no answer lmtcb [facility] 2023-09-15 11:47:23 Ivett Bran is a 77 year old female and Migdalia from [employer] is calling to check on order request. Was sent through Fax on 09/07/23 and has not received any updates on status please call to confirm if received and being completed. - States that it is time sensitive for the orders Anna Guadarrama [facility] 2023-09-12 14:54:04 Migdalia with [employer] is checking the status of a fax sent on 09/07/23 and to please send fax back she said as soon as possible. Norma Berrios [facility] 2023-09-07 15:23:18 Ivett Bran is a 77 year old female Migdalia with Lab service called because she faxed over a lab order this morning and wanted to know if the clinic received it. EET Muñoz [facility] 2023-09-02 15:05:10 Spoke Anabella nurse and advised her per covering provider Razia Garvin patient would need to be seen in office to be treated. She verbalized understanding and will let the patient know. Arcelia Dumont LVN 09/02/2023 3:06 PM TION SAFETY OFFICER Arcelia Dumont LVN [facility] 2023-09-02 14:57:54 Pts provider is out of office. R/t pts hx and vomiting all night , its best she be evaluated to see what's causing her to vomit. [facility] 2023-09-02 14:53:47 Can you please review EET Dumont LVN [facility] 2023-09-02 14:41:15 Ivett Bran is a 77 year old female Anabella called back to see the status of the medication. The pt needs something for vomiting and she has chest congestion. The pt is in a wheel chair and can not come into the clinic. Rsp 09/01 EET Fu [facility] 2023-09-02 14:02:36 Please review and advise. Recent [...] authorizing provider and meeting all other requirements TION SAFETY OFFICER [facility] 2023-09-02 13:55:15 Ivett Bran is a 77 year old female [place], 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 She is requesting for PCP to prescribe something to help her stomach. If there are any questions please call [phone]. TION SAFETY OFFICER Berna Boss [facility] 2023-08-24 09:19:00 Regardin yr female cloudy urine, and strong odor x 2 days ----- Message from Ron Ramos sent at 08/24/2023 9:17 AM AVIATION SAFETY OFFICER ----- Ivett Bran is a 77 year old female, day care provider with pt calling Specific Symptoms: cloudy urine, and strong odor Specific Duration: x 2 days - Declined apt or UC, requesting UTI meds, advised nurses cannot prescribe up to providers discretion TION SAFETY OFFICER Simba Bailey RN [facility] 2023-08-24 09:19:00 Adult Triage Assessment Last Clinic [...] the Urgent Care if symptoms worsen Simba LEW, RN [facility] Access Center Reason for Disposition Bad or foul-smelling urine Protocols used: Urinary [id number] [facility] 2023-08-24 09:19:00 Needs to see someone [facility] STA[facility] 2023-08-24 09:19:00 OV required [facility] STA[facility] 2023-08-24 09:19:00 Notified caregiver office visit is required as Dr. Israel is out on maternity leave. She has active standing orders for UA and UC as patient has recurrent infections and is bed bound. They will bring by sample tomorrow. Arcelia Dumont LVN 08/24/2023 1:28 PM [facility] Arcelia Dumont LVN [facility] 2023-08-23 10:32:06 Images from the original note were not included. Notified caregiver Flora Early: Jamshid Early MD P Cardiology Nurse Short paroxysmal A-fib episodes noted. Baseline artifact noted in the event monitor. No other significant arrhythmias. Follow-up with EP as already scheduled this month. Verbal understanding. EET Acuna MA [facility] 2023-08-22 09:27:04 Medication refilled per policy: Last office visit: 07/08/23 Next office visit: 11/11/23 Requested Prescriptions Pending Prescriptions Disp Refills ESCITALOPRAM OXALATE 10 mg tablet [Pharmacy Med Name: Escitalopram 10mg Tablet] 90 tablet 3 Sig: TAKE ONE (1) TABLET(S) BY MOUTH EVERY MORNING. Last fill date: 08/31/22 Notes: Depression, unspecified depression type [facility] 2023-08-05 15:37:51 Attempted to contact patient no answer contacted pharmacy who stated she picked it up 07/14/2023 [facility] 2023-07-21 13:04:51 Dr. Haynes ordered it 07/12/23 to [facility] in [place]. Please verify w/ patient/pharmacy. Dr. Lindy Whyte [facility] 2023-07-20 11:03:16 Patient requesting refill on Ozempic 2mg/dose 8mg3ml pen. [facility] 2023-07-18 12:21:23 Recent Visits Date Type Provider [...] pharmacy as: traZODone 50 mg tablet (DESYREL) TION SAFETY OFFICER Dara Delgado MA [facility] 2023-07-14 15:44:11 Called patient to inquire how she is feeling. Stated that she has been having issues keeping the monitor stuck to her, and is having skin irritation. Reminded to call the number on the inside of the box to have [facility] send some hypoallergenic patches to provide better comfort, no c/o dizziness or lightheadedness EET Gallagher RN [facility] 2023-07-14 12:49:54 [employer]ice strips reviewed. Noted to have atrial fibrillation with controlled ventricular response. Will continue to monitor. [facility] 2023-07-14 08:06:27 Received monitor readings from [employer] will put into Dr. Early folder for review. EET Bob MA [facility] 2023-07-13 16:26:17 PA submitted to [facility]. Awaiting response EET Solomon LVN [facility] 2023-07-13 12:17:33 [facility] called to notify that at 1028 AM today patient went into A-fib 70 bpm as noted on the event monitor Stated that there is some artifact noted Routed to Dr Early for advice EET Gallagher RN [facility] 2023-07-13 11:45:53 Images from the original note were not included. EET Ahn [facility] 2023-07-13 08:30:00 30-day event monitor applied to patient, tolerated well. Baseline tracing sent/confirmed by company. Instructed on recording manual events, wear, care and return of device; understanding verbalized via teach back. Monitor to be returned to ([facility] on 08/13/23. EET Gallagher RN [facility] 2023-07-12 13:34:06 RATNA 05/23/23 NOV 11/22/23 Per RATNA note: Varunallison Jared Juanito DIRECTOR OF REVENUE [facility] 2023-07-11 16:39:08 Images from the original note were not included. Last Refilled: 01/18/23 Notes: [facility] Pharmacy [place], [place] - [address] AT [address] Recent Visits Date [...] refill: 01/18/2023 Provider Review Required - nystatin Ilgjeh6307/11/2023 04:24 PM Protocol Details This refill cannot be delegated Valid encounter within last 12 months To be filled at: [facility] Pharmacy [place], [place] - [address] [place] [address] [address] EET Galaviz MA [facility] 2023-06-24 12:09:30 Images from the original note [...] done in 2 weeks time. Orders placed. [facility] 2023-06-23 07:45:28 Last Refilled: Disp Refills Start End CELSO PREGABALIN 50 mg capsule 90 capsule 0 03/02/2023 -- No Sig: TAKE ONE (1) CAPSULE(S) BY MOUTH AT BEDTIME. Sent to pharmacy as: pregabalin 50 mg capsule (LYRICA) Class: eRX Notes to Pharmacy: Sending Erx refill request Order: [id number] Date/Time Signed: 03/02/2023 13:02 E-Prescribing Status: Receipt [...] authorizing provider and meeting all other requirements EET Espinosa RN [facility] 2023-06-22 11:00:00 Images from the original note were not included. Venipuncture collection performed by clean technique on the left anticubitus. Total of 1 attempts were made. Slight pressure and a bandage/dressing were applied to the site(s). The patient experienced no complications. The following specimens were processed according to instructions and sent to [facility] laboratories per lab order on 06/22/2023 : LT BLUE SST 1 RED LAV 1 PPT DK GREEN (LiHep) DK GREEN (SodH) DERAS DK BLUE (K2) DK BLUE (S) ACD Blood Culture NIPT/NTD Dr early orders only [facility] 2023-06-22 11:00:00 Labs dated 06/22/2023 labs done [...] done in 2 weeks time. Orders placed. [facility] 2023-06-22 11:00:00 Addended by: JAMSHID EARLY on: 06/22/2023 07:48 PM Modules accepted: Orders [facility] 2023-03-22 15:58:52 Formatting of this n ote might be different from the original. Patient seen in office by provider 03/08/2023. Esther Oconnor RN [facility] 2023-03-10 07:57:23 Formatting of this n ote might be different from the original. Received POC from [employer] requesting Provider signature. Placed in Provider box. Amrita Santiagolandon [facility] 2023-02-28 10:55:41 Formatting of this n ote [...] Israel MD Last refill: 01/28/2023 Rx #: [id number] Controlled Substance Failed 02/28/2023 10:40 AM Protocol [...] Israel MD Last refill: 11/12/2022 Rx #: [id number] Controlled Substance Failed 02/28/2023 10:40 AM Protocol Details Valid encounter within last 3 months Pain agreement on file This refill cannot be delegated To be filled at: [facility] Pharm[facility] [place] [place] [facility] Recent Visits Date Type Provider Dept 01/18/23 Office Visit Brian Israel MD [facility] Med 12/09/22 Office Visit Brian Israel MD [facility] 09/28/22 Office Visit Brina Israel MD [facility] 08/31/22 [...] meeting all other requirements Arcelia Dumont LVN [facility] 2023-02-22 12:01:24 Formatting of this n ote is different from the original. TRANSITIONAL CARE MANAGEMENT ASSESSMENT 02/22/2023 Ivett Bran [id number] Ivett Bran is a 77 year old /White female was admitted on 02/20/23 to [facility]. She was discharged on 02/21/23 with discharge disposition of HR- Routine Discharge. Admitting Physician: Sam Meredith Discharge Diagnosis: Altered mental status-patient with altered mental status 2. Osteoarthritis 3. Pelvic wounds; No linked episodes TCM Rwx-wqjd-ss-face outreach documentation: Discharge Assessment Chart Assessed: 02/22/23 [...] Provider Department Dept Phone 03/08/2023 4:20 PM Brian Israel MD [facility] [phone] 03/21/2023 10:40 AM Brian Israel MD [facility] [phone] 04/06/2023 1:30 PM Jamshid Early MD [facility] [phone] 05/23/2023 10:30 AM Erick Larios MD [facility] [phone] 06/22/2023 10:00 AM Jamshid Early MD [facility] [phone] 12/26/2023 10:00 AM 1, [facility] [phone] 12/29/2023 11:00 AM Xenia Lomeli MD [facility] Hematology-Oncology [facility] [phone] Alda Morrison RN [facility] 2023-02-21 17:09:24 Formatting of this n ote might be different from the original. Problem: Pain Goal: Control of pain at or below patient's documented comfort goal 02/21/2023 1709 by Vanessa Ramirez, CHRISSY Outcome: Adequate for discharge 02/21/2023 1632 by Vanessa Ramirez RN Outcome: Progressing as expected Problem: Discharge Planning Goal: Adequate for discharge 02/21/2023 1709 by Vanessa Ramirez RN Outcome: Adequate for discharge 02/21/2023 1632 by Vanessa Ramirez RN Outcome: Progressing as expected Goal: Effective communication 02/21/2023 1709 by Vanessa Ramirez RN Outcome: Adequate for discharge 02/21/2023 1632 by Vanessa Ramirez RN Outcome: Progressing as expected Problem: Falls, Risk of Goal: Absence of falls 02/21/2023 170 by Vanessa Ramirez RN Outcome: Adequate for discharge 02/21/2023 1632 by Vanessa Ramirez RN Outcome: Progressing as expected Problem: Venous Thromboembolism, (actual or risk of) Goal: Absence of venous thromboembolism (Risk) 02/21/2023 170 by Vaenssa Ramirez RN Outcome: Adequate for discharge 02/21/2023 1632 by Vanessa Ramirez RN Outcome: Progressing as expected Problem: Skin integrity Impaired (Risk or Actual) Goal: Prevention of new skin breakdown 02/21/2023 170 by Vanessa Ramirez RN Outcome: Adequate for discharge 02/21/2023 1632 by Vanessa Ramirez RN Outcome: Progressing as expected Vanessa Ramirez RN [facility] 2023-02-21 16:32:28 Formatting of this n ote [...] new skin breakdown Outcome: Progressing as expected [facility] 2023-02-21 06:16:30 Formatting of this [...] Outcome: Progressing as expected Germaine Olson RN [facility] 2023-02-20 23:36:04 Formatting of this n ote might be different from the original. Report given to CHRISSY Dorado. Patient [facility]. Pt agree with POC and no questions at this time. Uri Godoy RN [facility] 2023-02-20 20:16:48 Formatting of this n ote might be different from the original. [facility] brought the pt in after being [...] upon arrival to ED Humaira Walton RN [facility] 2023-02-20 20:10:00 Formatting of this n ote [...] hospitalization AdmissionCare documentation entered by: Ramírez Culp [facility], 27th edition, Copyright 2022 [facility] All Rights Reserved. [id number]:[id number]:00 [employer] EMERGENCY PHYSICIAN STAFF [facility] 2023-02-18 17:24:55 Formatting of this n ote might be different from the original. Spoke with Kristy from [facility] and gave a verbal order: Pt is to continue with 4-layer compression dressings bilaterally Change dressings every 3 days Vascular studies were previously ordered and scheduled for 02/22/23 Left VM for pt on her cell to call the office and schedule a f/u appt Roel Hoang APRN, MSN, [facility]- Vascular Surgery GARBAGE TRUCK DISPATCHER-CRITICAL CARE MEDICINE [facility] 2023-02-15 17:29:25 Formatting of this n ote might be different from the original. I sent the RX a couple of weeks ago. Does she already need a refill? Dr. Lindy Whyte [facility] 2023-02-15 16:26:43 Formatting of this n ote [...] MOUTH EVERY SIX HOURS NEEDED FOR PAIN. Dara Delgado MA [facility] 2023-02-11 13:04:27 Formatting of this n ote might be different from the original. I do not have a good alternative at this time. She may just have to increase her insulin if she used to be on it and stopped. I recommend contacting endocrine or discussing at next visit as they may know of an assistance program. [facility] 2023-02-11 10:04:00 Formatting of this n ote might be different from the original. Pt says she cant get ozempic want to know what alternative is or should she take more of the other meds she has Milena Rubio [facility] 2023-02-10 14:47:03 Formatting of this n ote might be different from the original. Ivett Bran is a 77 year old female pt Kristy from [employer] is calling to see if they can order the 4 layer compression wrap for the pt. Please put the directions on when to take them on and off [email or web address].[phone] Fax.[phone] Juli Shipley V [facility] 2023-02-09 09:44:10 Formatting of this n ote might be different from the original. Ivett Bran is a 77 year old female Patients caregiver is calling to schedule Vascular US. Please assist. Contact at [phone] Livia Acuna [facility] 2023-02-03 09:28:31 Formatting of this n ote [...] meeting all other requirements Khadijah Gomez MA [facility] 2023-01-28 12:55:28 Formatting of this n ote is different from the original. Images from the original note were not included. Last Refilled: 12/23/22 Notes: [facility] [place] [place] [facility] [address] Recent Visits Date Type [...] Israel MD Last refill: 12/23/2022 Rx #: [id number] Controlled Substance Failed 01/28/2023 11:39 AM Protocol Details Valid encounter within last 3 months Pain agreement on file This refill cannot be delegated [facility] [facility] [address] AT [facility] [facility] [address] Sirena Galaviz MA [facility] 2023-01-21 14:46:18 Formatting of this n ote might be different from the original. Received Home Health Certification and Plan of Care. Placed in the providers box. Nichelle Mcguire [facility]
[2024-10-06 10:36] LABS: Absolute Basophils 0.1 K/uL (0-0.5); Absolute Eosinophils 0.4 K/uL (0-0.5); Absolute Lymphocytes (CBC) 0.5 K/uL (0.7-4.9); Absolute Monocytes 0.7 K/uL (0.1-1.3); Basophils % 0.6 % (0-1.3); Eosinophils % 4.3 % (0-4.4); Lymphocytes % 5.2 % (15.3-44.8); MCH 23.9 pg (27.0-35.0); MCHC 32.4 g/dL (32.0-36.0); MCV 73.9 fL (80-100); MPV 8.1 fL (7.6-11.3); Monocytes % 7.1 % (3.3-12.3); Neutrophils % 82.8 % (41.7-73.7); Nucleated Red Blood Cells % 0.1 % (0-0); Platelets 227 thou/uL (152-406); Red Cell Distribution Width 18.4 % (12.1-15.2)
--- NOTE | 2024-10-06 10:42 | RAD REPORT ---
EXAM: CT brain without contrast HISTORY: TRAUMA COMPARISON: None TECHNIQUE: Multiple contiguous axial images were obtained and a CT of the brain without contrast. Sag ittal and coronal reformats were performed. One or more of the following dose reduction techniques were used: Automated exposure control, adjust ment of the mA and/or kV according to patient size, and/or iterative reconstruction. FINDINGS: No evidence of hydrocephalus, intracranial hemorrhage, or extra-axial fluid collection. The brain is normal in morphology. No evidence of midline shift or areas of brain edema. Vertebral a therosclerosis. The calvarium is intact. The visualized paranasal sinuses and mastoid air cells are essentially clear . Minimal nasal bone fracture seen. Mild anterior scalp hematoma. IMPRESSION: No evidence of acute intracranial abnormality. Mild nasal bone fracture suspected. Suggest correlati on with point tenderness. EXAM: CT of the cervical spine without contrast HISTORY: Neck pain, injury TRAUMA TECHNIQUE: Multiple contiguous axial images were obtained in a CT of the cervical spine without contr ast. Sagittal and coronal reformats were performed. FINDINGS: The vertebral bodies demonstrate normal height. No evidence of acute fracture or subluxatio n.. 3 mm degenerative anterolisthesis C3 on 4. Evidence of prior fusion C5-7. No prevertebral soft tissue swelling is seen. Right carotid stent. The posterior facets are well aligned. Normal alignment of the skull base with the cervical spine is seen. The lung apices are unremarkable. IMPRESSION: No evidence of acute osseous abnormality of the cervical spine.
[2024-10-06 10:45] LABS: Anion Gap 6.9 mEq/L (5.0-15.0); Potassium 3.9 mEq/L (3.5-5.1)
--- NOTE | 2024-10-06 10:46 | RAD REPORT ---
EXAM: CT CHEST, ABDOMEN AND PELVIS WITHOUT CONTRAST CLINICAL INDICATION: TRAUMA TECHNIQUE: CT chest, abdomen and pelvis was performed without contrast, as per department protocol. A xial, sagittal and coronal reconstructions were obtained. One or more of the following dose reduction techniques were used: Automated exposure control, adjustment of the mA and/or kV according to patient size, and/or iterative reconstruction. Unless otherwise specified, incidental findings do not require dedicated imaging follow-up. Examination is limited by the lack of intravenous contrast material. COMPARISON: No prior exam. FINDINGS: LUNGS: Mild groundglass opacity bilaterally likely mild pulmonary edema. Atelectasis versus mild infi ltrate is also present in both lung bases. PLEURA: Small bilateral pleural effusions. MEDIASTINUM AND LYMPH NODES: No mediastinal mass or fluid collection. Normal size mediastinal, hilar, and axillary lymph nodes. OSSEOUS STRUCTURES AND CHEST WALL: Intact. LIVER: Normal in size and contour. No focal lesion or biliary dilatation. Cholelithiasis. PANCREAS: No mass, ductal dilation, or nata-pancreatic fluid. SPLEEN: Normal size. No focal lesion. ADRENALS: Normal; no mass. KIDNEYS: Normal size and contour. No hydronephrosis. URINARY BLADDER: Normal contour. GASTROINTESTINAL TRACT: No bowel obstruction, free air, significant free fluid or abscess. APPENDIX: Normal appendix. LYMPH NODES: No lymphadenopathy. MUSCULOSKELETAL: Moderate degenerative changes thoracolumbar spine. OTHER: Aortic atherosclerosis. IMPRESSION: CHF pattern is suspected with [id number] bilateral pleural effusions. No acute trauma-related abnormality detected.
[2024-10-06 11:12] LABS: Specific Gravity 1.018 (1.005-1.030); Sqamous Epithelial <5 /HPF (None Seen); Urine Bacteria None Seen /HPF (<20); Urine Bilirubin NEGATIVE (Negative); Urine Blood 1+ (Negative); Urine Clarity Extremely Turbid (Clear); Urine Color Light-Orange (Yellow); Urine Culture Reflex Order REFLEXED; Urine Glucose 3+ (Negative); Urine Ketones NEGATIVE (Negative); Urine Micro Reflex YN NO BILL MICROSCOPIC; Urine Nitrite NEGATIVE (Negative); Urine Protein 3+ (Negative); Urine RBC 21-50 /HPF (None Seen); Urine Urobilinogen Normal (Normal); Urine WBC >50 /HPF (<5); Urine WBC Clump Few /HPF (None Seen); Urine pH 6.5 (5.0-7.0)
--- NOTE | 2024-10-06 11:33 | EDPHYS ---
Physician Documentation [facility] Name: Stephany Bran Age: 78 yrs Sex: Female : 1945 Arrival Date: 10/06/2024 Time: 09:42 Bed 19 Private MD: ED Physician Maria Elena Rock HPI: 10/06 09:45 This 78 yrs old Female presents to ER via EMS with complaints of Head Injury With sb4 LOC-Adult. 09:45 Patient sustained a fall this morning in which she "face planted "and lost sb4 consciousness. States that she does not remember how she fell or what happened prior to the fall. Tubular Splitting Machine Tender came in to see her and called EMS. Estimated downtime is 1 hour. Patient is only complaining of pain in her head. Has a hematoma and mild bleeding on her nose. EMS administered 100 mcg fentanyl, 1 gram Ofirmev, and 4 mg zofran. Historical: - Allergies: 09:42 Ciprofloxacin; kc6 09:42 Demerol; kc6 09:42 Erythromycin; kc6 09:42 Losartan; kc6 09:42 MACROLIDES; kc6 09:42 Metformin HCl; kc6 09:42 metronidazole; kc6 09:42 Myacin family; kc6 09:42 PENICILLINS; kc6 09:42 pentoxifylline; kc6 - PMHx: 09:42 Atrial fibrillation; diabetes mellitus; Glaucoma; Hypothyroidism; neuropathy; kc6 osteoarthritis; Osteoporosis; - PSHx: 09:42 hystertectomy (Osteoporosis); kc6 - Immunization history: Last tetanus immunization: unknown. - Infectious Disease History:: Denies. - Social history:: Smoking status: Patient denies any tobacco usage or history of. ROS: 09:45 Constitutional: Negative for fever, chills, and weight loss, sb4 09:45 MS/extremity: Positive for injury or acute deformity, of the forehead and nose, 09:45 Neuro: Positive for headache, 09:45 All other systems are negative, Exam: 09:46 Cardiovascular: Regular rate and rhythm with a normal S1 and S2. Abdomen/GI: Soft, sb4 non-tender, no distension. 09:46 Constitutional: The patient appears sleepy but arousable, responsive to verbal stimuli 09:46 Head/face: Noted is hematoma, that is mild, of the forehead, a laceration(s), that is superficial, 1 cm(s), of the nose, 09:46 Eyes: Pupils: pinpoint, bilaterally, 09:46 Cardiovascular: Edema: 3+ edema to level of left midcalf, left ankle, left foot, left toes, right midcalf, right ankle, right foot and right toes, 09:51 Skin: cellulitis, that is mild, on the right and left inner thighs/knees, sb4 Vital Signs: 09:42 BP 150 / 97; Pulse 68; Resp 18 S; Temp 98.7(O); Pulse Ox 95% on 3 lpm NC; Weight 109.32 kc6 kg (R); Height 5 ft. 7 in. (R); 12:46 BP 158 / 84; Pulse 58; Resp 18 S; Pulse Ox 98% on 3 lpm NC; kc6 09:42 Body Mass Index 37.75 (109.32 kg, 170.18 cm) kc6 [place] Coma Score: 09:42 Eye Response: spontaneous(4). Motor Response: obeys commands(6). Verbal Response: kc6 oriented(5). Total: 15. Trauma Score (Adult): 09:42 Eye Response: spontaneous(1); Verbal Response: oriented(1); Motor Response: obeys kc6 commands(2); Systolic BP: > 89 mm Hg(4); Respiratory Rate: 10 to 29 per min(4); [place] Score: 15; Trauma Score: 12 MDM: 09:43 Medical Screening Exam initiated sb4 10:26 Differential diagnosis: Contusion of head, Hematoma on head, Laceration of nose, sb4 Intracranial bleed- Concussion with LOC. cerebral contusion. 11:35 Data reviewed: vital signs, nurses notes, EMS record, lab test result(s), EKG, sb4 radiologic studies, and as a result, I will admit patient. Consideration of Admission/Observation Patient was admitted/placed on observation. Counseling: I had a detailed discussion with the patient and/or guardian regarding the historical points, exam findings, and any diagnostic results supporting the discharge/admit diagnosis, the presence of at least one elevated blood pressure reading (>120/80) during this emergency department visit, lab results, radiology results, the need for further work-up and treatment in the hospital. 10/06 09:44 Order name: Basic Metabolic Panel; Complete Time: 10:46 sb4 10/06 09:44 Order name: CBC with Diff; Complete Time: 10:42 sb4 10/06 09:44 Order name: Troponin HS; Complete Time: 10:46 sb4 10/06 09:44 Order name: UAM; Complete Time: 11:13 sb4 10/06 09:44 Order name: CK; Complete Time: 10:46 sb4 10/06 11:14 Order name: Urine Culture EDMS 10/06 12:49 Order name: T4 Free EDMS 04/ 12:49 Order name: Thyroid Stimulating Hormone EDMS 04/ 12:49 Order name: Basic Metabolic Panel EDMS 04/05 12:49 Order name: Basic Metabolic Panel EDMS 04/05 12:49 Order name: Basic Metabolic Panel EDMS 04/05 12:49 Order name: Basic Metabolic Panel EDMS 04/05 12:49 Order name: Basic Metabolic Panel EDMS 04/05 12:49 Order name: Basic Metabolic Panel EDMS 04/05 12:49 Order name: Basic Metabolic Panel EDMS 04/05 12:49 Order name: Basic Metabolic Panel EDMS 04/05 12:49 Order name: CBC with Automated Diff EDMS 04/05 12:49 Order name: CBC with Automated Diff EDMS 04/05 12:49 Order name: CBC with Automated Diff EDMS 04/05 12:49 Order name: CBC with Automated Diff EDMS 04/05 12:49 Order name: CBC with Automated Diff EDMS 04/05 12:49 Order name: CBC with Automated Diff EDMS 04/05 12:49 Order name: CBC with Automated Diff EDMS 04/05 12:49 Order name: CBC with Automated Diff EDMS 04/05 12:49 Order name: Magnesium EDMS 04/05 12:49 Order name: Magnesium EDMS 04/05 12:49 Order name: Magnesium EDMS 04/05 12:49 Order name: Magnesium EDMS 04/05 12:49 Order name: Magnesium EDMS 04/05 12:49 Order name: Magnesium EDMS 04/05 12:49 Order name: Magnesium EDMS 04/05 12:49 Order name: Magnesium EDMS 04/05 12:49 Order name: Phosphorus EDMS 04/05 12:49 Order name: Phosphorus EDMS 04/05 12:49 Order name: Phosphorus EDMS 04/05 12:49 Order name: Phosphorus EDMS 04/ 12:49 Order name: Phosphorus EDMS 10/06 12:49 Order name: Phosphorus EDMS 04/ 12:49 Order name: Phosphorus EDMS 04/ 12:49 Order name: Phosphorus EDMS 10/06 12:49 Order name: Troponin High Sensitivity EDMS 10/06 12:49 Order name: Troponin High Sensitivity EDMS 10/06 12:49 Order name: Troponin High Sensitivity EDMS 10/06 09:44 Order name: Head C Spine MPR Wo Con CT; Complete Time: 10:46 sb4 10/06 09:44 Order name: Chest Abdomen Pelvis Wo Con CT; Complete Time: 10:48 sb4 10/06 12:49 Order name: Echo with Doppler EDMS 10/06 12:49 Order name: ERT ORTHOSTATIC V/S EDMS 10/06 12:49 Order name: Physical Therapy Consult EDMS 10/06 09:44 Order name: Cardiac monitoring; Complete Time: 10:23 sb4 10/06 09:44 Order name: EKG - Nurse/Tech; Complete Time: 10:23 sb4 10/06 09:44 Order name: IV Saline Lock; Complete Time: 10:23 sb4 10/06 09:44 Order name: Labs collected and sent; Complete Time: 10:23 sb4 10/06 09:44 Order name: O2 Per Protocol; Complete Time: 10:23 sb4 10/06 09:44 Order name: O2 Sat Monitoring; Complete Time: 10:23 sb4 10/06 10:46 Order name: Misc. Order: remove c collar; Complete Time: 11:03 sb4 EC:24 Rate is 57 beats/min. Rhythm is irregular, Junctional rhythm with Occasional PVCs. QRS sb4 interval is normal at 88 msec. QT interval is prolonged at 502 msec. Interpreted by me. Reviewed by me. Administered Medications: 12:20 Drug: Rocephin IV 2 grams IV at calculated rate once; Given slow IV push per [employer] kc6 instructions Route: IV; Rate: calculated rate; Site: right forearm; 13:29 Follow up: Response: No adverse reaction; IV Status: Completed infusion; IV Intake: [id number] Disposition Summary: 10/06/24 11:32 Hospitalization Ordered Notes: Hospitalization Status: Observation sb4 Location: Telemetry/MedSurg (observation) sb4 Condition: Fair sb4 Problem: new sb4 Symptoms: are unchanged sb4 Bed/Room Type: Standard sb4 Provider: Jason Mckinney(10/06/24 11:39) sb4 Room Assignment: 406(10/06/24 13:31) eb Diagnosis - Fall on same level, unspecified sb4 - Acute kidney failure, unspecified sb4 - Weakness sb4 - UTI/ Urinary tract infection, site not specified sb4 Forms: - Medication Reconciliation Form sb4 - SBAR form sb4 - Leadership Thank You Letter sb4 Signatures: Dispatcher [employer] EDMS Nichelle George Kaitlyn, RN RN kc6 Deysi Rachel PA-C PA-C sb4 Corrections: (The following items were deleted from the chart) 09:44 09:44 Chest Abdomen Pelvis Wo Con+CT.RAD.BRZ ordered. EDMS EDMS 09:44 09:44 BASIC METABOLIC PANEL+C.LAB.BRZ ordered. EDMS EDMS 09:44 09:44 CBC+H.LAB.BRZ ordered. EDMS EDMS 09:44 09:44 Troponin High Sensitivity+C.LAB.BRZ ordered. EDMS EDMS 09:44 09:44 Urinalysis W/Microscopic+U.LAB.BRZ ordered. EDMS EDMS 09:44 09:44 CREATINE PHOSPHOKINASE+C.LAB.BRZ ordered. EDMS EDMS 09:50 09:45 Patient sustained a fall this morning in which she "face planted "and lost sb4 consciousness. States that she does not remember how she fell or what happened prior to the fall. Tubular Splitting Machine Tender came in to see her and called EMS. Estimated downtime is 1 hour. Patient is only complaining of pain in her head. Has a hematoma and mild bleeding on her nose. sb4 09:51 09:46 Cardiovascular: Regular rate and rhythm with a normal S1 and S2. Abdomen/GI: sb4 Soft, non-tender, no distension. Skin: Warm, dry with normal turgor. Normal color with no rashes, no lesions, and no evidence of cellulitis. sb4 11:39 11:32 Yordan Palomo sb4 sb4 13:31 11:32 sb4 eb
--- NOTE | 2024-10-06 11:33 | ER ---
Nurse's Notes [facility] Name: Stephany Bran Age: 78 yrs Sex: Female : 1945 Arrival Date: 10/06/2024 Time: 09:42 Bed 19 Private MD: Diagnosis: Fall on same level, unspecified;Acute kidney failure, unspecified;Weakness;UTI/ Urinary tract infection, site not specified Presentation: 10/06 09:42 Chief complaint: EMS states: they were toned out for a fall out of wheelchair. pt kc6 reports to have hit danette first, (+) blood thinners, (-) LOC, down for 1hr before found. 09:42 Care prior to arrival: Cervical collar in place. Medication(s) given: Tylenol, 1000 mg, kc6 Fentanyl 50mcg IV IV initiated. 20 GA, in the right forearm, Glucose check: 200 Oxygen administered. via nasal cannula. Mechanism of Injury: Fall out of chair. Trauma event details: Injury occurred in the [facility], Injury occurred: at home. Injury occurred: October 06, 2024. 09:42 Acuity: NGA 2 kc6 09:42 Method Of Arrival: EMS: [facility] 6 09:42 Coronavirus screen: At this time, the client does not indicate any symptoms associated kc6 with coronavirus-19. Ebola Screen: No symptoms or risks identified at this time. 09:42 Initial Sepsis Screen: Does the patient meet any 2 criteria? No. Patient's initial kc6 sepsis screen is negative. Does the patient have a suspected source of infection? No. Patient's initial sepsis screen is negative. Risk Assessment: Do you want to hurt yourself or someone else? Patient reports no desire to harm self or others. Onset of symptoms was October 06, 2024. Trauma Activation: Not Applicable Physician: ED Physician; Name: ; Notified At: ; Arrived At: Physician: General Surgeon; Name: ; Notified At: ; Arrived At: Physician: Radiology; Name: ; Notified At: ; Arrived At: Physician: Respiratory; Name: ; Notified At: ; Arrived At: Physician: Lab; Name: ; Notified At: ; Arrived At: Historical: - Allergies: 09:42 Ciprofloxacin; kc6 09:42 Demerol; kc6 09:42 Erythromycin; kc6 09:42 Losartan; kc6 09:42 MACROLIDES; kc6 09:42 Metformin HCl; kc6 09:42 metronidazole; kc6 09:42 Myacin family; kc6 09:42 PENICILLINS; kc6 09:42 pentoxifylline; kc6 - PMHx: 09:42 Atrial fibrillation; diabetes mellitus; Glaucoma; Hypothyroidism; neuropathy; kc6 osteoarthritis; Osteoporosis; - PSHx: 09:42 hystertectomy (Osteoporosis); kc6 - Immunization history: Last tetanus immunization: unknown. - Infectious Disease History:: Denies. - Social history:: Smoking status: Patient denies any tobacco usage or history of. Screenin:42 Abuse screen: Denies threats or abuse. Denies injuries from another. Tuberculosis kc6 screening: No symptoms or risk factors identified. 09:42 [facility] ED Fall Risk Assessment (Adult) History of falling in the last 3 months, kc6 including since admission Yes- single mechanical fall (1 pt) Confusion or Disorientation No (0 pts) Intoxicated or Sedated No (0 pts) Impaired Gait Yes (1 pt) Mobility Assist Device Used Yes (1 pt) Altered Elimination No (0 pt) Score/Fall Risk Level 3 or more points = High Risk Oriented to surroundings, Maintained a safe environment, Educated pt \T\ family on fall prevention, incl call for assistance when getting out of bed. Nutritional screening: No deficits noted. Primary Survey: 09:42 NO uncontrolled hemorrhage observed. A: The client is awake and alert. The airway is kc6 patent. Breathing/Chest: Spontaneous respiratory effort, equal unlabored respirations, breath sounds clear bilaterally, regular pattern, symmetrical chest rise and fall. Circulation: No external hemorrhage present. Regular and strong central pulse, skin warm/dry/normal color. Disability Pupils are equal, round, reactive to light and accommodation. Client is alert. Exposure/Environment: All clothing and personal items were removed. Forensic evidence collection is not deemed to be indicated at this time. Items placed in patient belonging bag. There is no evidence of uncontrolled external bleeding. Obvious injury(ies) are noted at this time: small skin tear to bridge of nose A warming method has been applied: A warm blanket has been provided to the patient. 12:46 Reassessment Alertness and Airway: Awake and alert. The airway is patent. Breathing: kc6 Spontaneous respiratory effort, equal unlabored respirations, breath sounds clear bilaterally, regular pattern with symmetrical chest rise and fall. Circulation: No external hemorrhage noted. Regular and strong central pulse, skin warm/dry/normal color. Disability: Pupils Pupils are equal, round, reactive to light and accomodation. Alert. Assessment: 09:42 General: Appears in no apparent distress. uncomfortable, obese, unkempt, well kc6 developed, Behavior is calm, cooperative, appropriate for age, drowsy. Pain: Complains of pain in face and right foot and right midcalf and left foot and left midcalf and nose and forehead. Neuro: Level of Consciousness is awake, alert, obeys commands, Oriented to person, place, time, situation, Appropriate for age. Cardiovascular: Capillary refill < 3 seconds. Respiratory: Airway is patent Trachea midline Respiratory effort is even, unlabored, Respiratory pattern is regular, symmetrical. GI: No signs and/or symptoms were reported involving the gastrointestinal system. : No signs and/or symptoms were reported regarding the genitourinary system. EENT: No signs and/or symptoms were reported regarding the EENT system. Derm: Skin is fragile, is thin, with poor turgor Skin is moist, Skin is normal, Skin temperature is warm Rash noted that is red, raised, on pelvis, right leg and left leg. Musculoskeletal: Circulation, motion, and sensation intact. Range of motion: intact in all extremities, Swelling present in right leg, left leg and nose and forehead. 10:42 Reassessment: Patient appears in no apparent distress at this time. No changes from kc6 previously documented assessment. Patient and/or family updated on plan of care and expected duration. Pain level reassessed. Patient is alert, oriented x 3, equal unlabored respirations, skin warm/dry/pink. 11:42 Reassessment: Patient appears in no apparent distress at this time. No changes from kc6 previously documented assessment. Patient and/or family updated on plan of care and expected duration. Pain level reassessed. Patient is alert, oriented x 3, equal unlabored respirations, skin warm/dry/pink. 12:46 Reassessment: Patient appears in no apparent distress at this time. No changes from kc6 previously documented assessment. Patient and/or family updated on plan of care and expected duration. Pain level reassessed. Patient is alert, oriented x 3, equal unlabored respirations, skin warm/dry/pink. Vital Signs: 09:42 BP 150 / 97; Pulse 68; Resp 18 S; Temp 98.7(O); Pulse Ox 95% on 3 lpm NC; Weight 109.32 kc6 kg (R); Height 5 ft. 7 in. (R); 12:46 BP 158 / 84; Pulse 58; Resp 18 S; Pulse Ox 98% on 3 lpm NC; kc6 09:42 Body Mass Index 37.75 (109.32 kg, 170.18 cm) kc6 [place] Coma Score: 09:42 Eye Response: spontaneous(4). Motor Response: obeys commands(6). Verbal Response: kc6 oriented(5). Total: 15. Trauma Score (Adult): 09:42 Eye Response: spontaneous(1); Verbal Response: oriented(1); Motor Response: obeys kc6 commands(2); Systolic BP: > 89 mm Hg(4); Respiratory Rate: 10 to 29 per min(4); [place] Score: 15; Trauma Score: 12 ED Course: 09:42 Patient arrived in ED. sb4 09:42 Patient has correct armband on for positive identification. Placed in gown. Bed in low kc6 position. Call light in reach. Side rails up X2. Adult w/ patient. 09:42 Arm band placed on. kc6 09:42 hospital monitor on. Pulse ox on. NIBP on. Door closed. Noise minimized. Lights dimmed. kc6 Warm blanket given. Pillow given. Verbal reassurance given. 09:42 Oxygen administration via nasal cannula \T\ 3L/min. kc6 09:42 Maintain EMS IV. Dressing intact. Good blood return noted. Site clean \T\ dry. Gauge \T\ bjorn 6 site: 20G RFA. Flushed with 10 mL NS. 09:42 Thermoregulation: warm blanket given to patient. kc6 09:43 Deysi Rachel PA-C is PHCP. sb4 09:43 Maria Elena Rock MD is Attending Physician. sb4 10:02 Radhika Walton RN is Primary Nurse. kc6 10:25 Triage completed. kc6 10:29 Initial lab(s) drawn, by me, sent to lab. kc6 10:34 Head C Spine MPR Wo Con CT In Process Unspecified. EDMS 10:34 Chest Abdomen Pelvis Wo Con CT In Process Unspecified. EDMS 11:03 Repositioned patient. Cleaned of incontinence. Linen changed. kc6 11:03 Urine collected: Garcia catheter specimen, cloudy. Garcia cath inserted, using sterile kc6 technique, 18 Fr., by ky, balloon inflated, to gravity drainage, clamped. urine specimen collected. 11:03 Removal of Cervical Collar. kc6 11:31 Yordan Palomo PA is Hospitalizing Provider. sb4 11:39 Jason Mckinney is Hospitalizing Provider. sb4 13:30 No provider procedures requiring assistance completed. Patient admitted, IV remains in kc6 place. Administered Medications: 12:20 Drug: Rocephin IV 2 grams IV at calculated rate once; Given slow IV push per pharmarcy kc6 instructions Route: IV; Rate: calculated rate; Site: right forearm; 13:29 Follow up: Response: No adverse reaction; IV Status: Completed infusion; IV Intake: [id number] Medication: 13:30 VIS not applicable for this client. kc6 Intake: 13:29 IV: 50ml; Total: 50ml. kc6 Outcome: 11:32 Decision to Hospitalize by Provider. sb4 13:30 Admitted to ER Hold. Please see [facility] for further documentation. kc6 13:30 Condition: good 13:30 Instructed on the need for admit, 14:39 Patient left the ED. kc6 Signatures: Dispatcher [employer] Radhika Pickett RN RN kc6 Deysi Rachel PANeelaC PA-C sb4 Corrections: (The following items were deleted from the chart) 10:39 09:42 General: Appears in no apparent distress. uncomfortable, obese, unkempt, well kc6 developed, Behavior is calm, cooperative, appropriate for age, kc6 10:39 09:42 Pain: Complains of pain in nose and forehead kc6 kc6
[2024-10-06] MEDS ORDERED: CEFTRIAXONE 2000 MG/VIAL ONE (11:56)
[2024-10-06] MEDS ORDERED: NA CHLORIDE 0.9% 50 ML ONE (11:56)
[2024-10-06] MEDS ORDERED: ACETAMINOPHEN 325 MG TABLET PO PRN (12:41)
--- NOTE | 2024-10-06 12:51 | P.HP ---
Certification for Inpatient Patient admitted to: Inpatient With expected LOS: >2 Midnights Practitioner: I am a practitioner with admitting privileges, knowledge of patient current condition, hospital course, and medical plan of care. Services: Services provided to patient in accordance with Admission requirements found in Title 42 Section 412.3 of the Code of Federal Regulations Patient History Date of Service: 10/06/24 Reason for admission: Syncope, trauma fall, UTI History of Present Illness: Stephany Bran is a 78 year old female with pmhx Atrial fibrillation; diabetes m ellitus; Glaucoma; Hypothyroidism; neuropathy, osteoarthritis; Osteoporosis, chronic wounds who presents to the ED after a syncopal episode falling from her desk chair and hitting her head on her desk. She reports being dizzy intermittently for several months that is occurring whether laying down, sitting, or standing. This does not seem to triggered by positioning. She reports having "a lot of UTIs" recently and feels she has urinary tract symptoms today. She has a history of chronic wounds to bilateral lower extremities and treated with skin grafts which failed on the right ankle. Laboratory evaluation significant for left shift neutrophils 82, H&H 10/31, BUN/creatinine 21/1.38, GFR 39, serum glucose 186, CT head and cervical spine reports "No evidence of acute intracranial abnorm ality. Mild nasal bone fracture suspected. Suggest correlation with point tenderness. No evidence of acute osseous abnormality of the cervical spine" CT chest abdomen pelvis reports "CHF pattern is suspected with [id number] bilateral pleural effusions. No acute trauma-related abnormality detected." Stephany will be admitted to hospitalist service for further evaluation and treatment of sepsis secondary to UTI and multiple wounds. Allergies ciprofloxacin Allergy (Verified 08/31/19 21:43) Hallucinations erythromycin base Allergy (Verified 08/31/19 21:43) Itching/Hives/Rash losartan Allergy (Verified 08/31/19 21:43) Hallucinations Macrolide Antibiotics Allergy (Verified 08/31/19 21:43) Itching/Hives/Rash metronidazole [From Flagyl] Allergy (Verified 08/31/19 21:43) Itching/Hives/Rash Penicillins Allergy (Verified 08/31/19 21:43) Itching/Hives/Rash pentoxifylline Allergy (Verified 08/31/19 21:43) Itching/Hives/Rash codeine Adverse Reaction (Intermediate, Verified 08/31/19 21:43) Hallucinations Home Medications: Dapagliflozin Propanediol [Farxiga] 10 mg PO DAILY 08/31/19 Diphenhydramine HCl [Banophen] 25 mg PO Q6HP PRN 08/31/19 Furosemide 40 mg PO DAILY 08/31/19 Insulin Aspart [Novolog Flexpen] 2 units SQ TIDWM 08/31/19 Latanoprost Ophth [Xalatan 0.005%*] 1 gtt EACH EYE BEDTIME PRN 08/31/19 Levothyroxine Sodium 25 mcg PO DAILY 08/31/19 Pantoprazole [Protonix Tab*] 40 mg PO DAILY 08/31/19 Pramipexole Di-HCl [Pramipexole ER] 0.75 mg PO BEDTIME 08/31/19 traMADol HCL [Ultram*] 50 mg PO Q6HP PRN 08/31/19 Aspirin [Aspirin EC 81 MG] 1 tab PO DAILY 05/08/21 Pravastatin [Pravachol*] 1 tab PO BEDTIME 05/08/21 Apixaban [Eliquis] 5 mg PO BID #60 tablet 06/02/21 Benzonatate [Tessalon Perle*] 100 mg PO TID PRN cap 06/02/21 Metoprolol Tartrate [Lopressor*] 25 mg PO BID 6AM 6PM tab 06/02/21 Baclofen 10 mg PO BID 10/06/24 Clopidogrel Bisulfate [Plavix] 75 mg PO DAILY 10/06/24 Pregabalin 50 mg PO DAILY 10/06/24 Spironolactone 25 mg PO DAILY 10/06/24 predniSONE [Prednisone*] 10 mg PO DAILY 10/06/24 - Past Medical/Surgical History Diabetic: Yes -: Pneumonia -: DM -: HTN -: HLD -: Hypothyroidism -: Neuropathy -: Glaucoma -: Atrial Fibrillation -: hypotension -: EYE SX -: CERVICAL SPINE SX -: HYSTERECTOMY -: APPENDECTOMY -: left FOOT SX - Family History Mother -: Cancer Notes: stomach and intestinal cancer Father -: Heart disease - Social History Smoking Status: Never smoker Alcohol use: No CD- Drugs: No Caffeine use: Yes Review of Systems Other: Per HPI Physical Examination - Physical Exam General: Alert, In no apparent distress, Oriented x3 HEENT: Other (Hematoma and bruise to forehead) Neck: Supple, 2+ carotid pulse no bruit Respiratory: Clear to auscultation bilaterally, Normal air movement Cardiovascular: Normal pulses, Regular rate/rhythm Capillary refill: <2 Seconds Gastrointestinal: Normal bowel sounds Musculoskeletal: Other (Multiple wounds) Neurological: Normal speech, Normal tone - Studies Laboratory Data (last 24 hrs) 10/06/24 10/06/24 10:19 10:19 WBC 9.70 Hgb 10.0 L Hct 31.0 L Plt Count 227 Sodium 141 Potassium 3.9 BUN 21 H Creatinine 1.38 H Glucose 186 H Assessment and Plan - Plan Assessment and Plan UTI (POA) Hypthermia likely 2/2 endotoxin release -Follow blood and urine cultures -Rocephin, she has multiple antibiotic allergies -IVF -monitoring for SIRs/sepsis -Continue go hugger and recheck tempurature rectally Trauma fall with Facial contusions Frequent syncope and dizziness/lightheadedness -CT head/spine with no acute finding -supportve care -orthostatic vitals -Supportive care Anemia - Monitor H&H daily - Transfuse as needed - Anemia workup in the a.m. Multiple wounds Neuropathy -Consult wound care -consult Dr. Hernadez DM with hyperglycemia -Accucheck with SSI HTN HLD Hypothyroidism Glaucoma Afib Hypotension -continue home medication DVT PPx heparin Full code LOS 2 to 3 days Discharge Plan: Home Plan to discharge in: 48 Hours - Advance Directives Does patient have a Living Will: No Does patient have a Durable POA for Healthcare: No
[2024-10-06] MEDS: NA CHLORIDE 0.9% 1,000 ML IV SCH (13:00)
[2024-10-06] MEDS ORDERED: GLUCAGON 1 MG/VIAL IM PRN (13:02)
[2024-10-06] MEDS ORDERED: D10W 125 ML IV PRN (13:02)
[2024-10-06] MEDS ORDERED: MECLIZINE HCL 12.5 MG TAB ONE (13:34)
[2024-10-06] MEDS ORDERED: NA CHLORIDE 0.9% 1,000 ML ONE (13:34)
[2024-10-06] MEDS: MECLIZINE HCL 12.5 MG TAB PO SCH (13:49)
[2024-10-06 15:39] VITALS: BMI 37.7
[2024-10-06] MEDS: INSULIN REGULAR (HUMAN) 100 UNIT/ML SQ SCH (16:01)
[2024-10-06] MEDS: MORPHINE 2 MG/ML SYR IV PRN (22:03)
[2024-10-06 23:18] LABS: Thyroid Stimulating Hormone 5.91 uIU/mL (0.358-3.740)
[2024-10-07 05:40] LABS: Absolute Eosinophils 0.3 K/uL (0-0.5); Absolute Lymphocytes (CBC) 0.4 K/uL (0.7-4.9); Absolute Monocytes 0.6 K/uL (0.1-1.3); Absolute Neutrophil 6.8 K/uL (1.8-8.0); Basophils % 0.3 % (0-1.3); Eosinophils % 4.2 % (0-4.4); Hemoglobin 8.7 g/dL (12.0-15.0); MCHC 32.4 g/dL (32.0-36.0); MPV 7.9 fL (7.6-11.3); Monocytes % 7.5 % (3.3-12.3); Nucleated Red Blood Cells % 0.1 % (0-0); Platelets 213 thou/uL (152-406); RBC Red Blood Cell Count 3.64 M/uL (3.86-4.86); Red Cell Distribution Width 18.2 % (12.1-15.2)
[2024-10-07 06:08] LABS: Anion Gap 8.5 mEq/L (5.0-15.0); Ferritin 41.7 ng/mL (8-252); Magnesium 2.3 mg/dL (1.6-2.4); Phosphorus 3.6 mg/dL (2.5-4.9); Potassium 4.5 mEq/L (3.5-5.1)
[2024-10-07] MEDS: CEFTRIAXONE 1,000 MG in NA CHLORIDE 0.9% 50 ML IVPB SCH (08:14)
[2024-10-07] MEDS: SPIRONOLACTONE 25 MG TABLET PO SCH (10:00)
[2024-10-07] MEDS: CLOPIDOGREL 75 MG TABLET PO SCH (10:00)
[2024-10-07] MEDS: BACLOFEN 10 MG TAB PO SCH (10:00)
[2024-10-07] MEDS: APIXABAN 5 MG TABLET PO SCH (10:00)
[2024-10-07] MEDS: PREGABALIN 50 MG CAP PO SCH (10:00)
--- NOTE | 2024-10-07 10:12 | P.PN ---
Date of Service: 10/07/24 Subjective Reports not feeling better Reports bilateral lower extremity pain ROS 10 point ROS as noted above, otherwise negative Physical Exam General: Alert and Oriented x3 HEENT: Other (Hematoma and bruise to forehead) Neck: Supple, 2+ carotid pulse no bruit Respiratory: Clear to auscultation bilaterally, Normal air movement, on 2 LNC Cardiovascular: Normal pulses, Regular rate/rhythm Capillary refill: <2 Seconds Gastrointestinal: Normal bowel sounds Musculoskeletal: Other (Multiple wounds) Neurological: Normal speech, Normal tone Vitals Reviewed Problem list UTI (POA) Hypthermia likely 2/2 endotoxin release Trauma fall with Facial contusions Frequent syncope and dizziness/lightheadedness Anemia Multiple wounds Neuropathy DM with hyperglycemia HTN HLD Hypothyroidism Glaucoma Afib Hypotension Assessment and Plan UTI (POA) Hypthermia likely 2/2 endotoxin release -Follow blood and urine cultures -Rocephin, she has multiple antibiotic allergies -IVF -monitoring for SIRs/sepsis -Continue go hugger and recheck temperature rectally Trauma fall with Facial contusions Frequent syncope and dizziness/lightheadedness -CT head/spine with no acute finding -supportve care -orthostatic vitals -Supportive care Anemia - Monitor H&H daily - Transfuse as needed - Anemia workup in the a.m. Multiple wounds Neuropathy -Consult wound care -consult Dr. Hernadez DM with hyperglycemia -Accucheck with SSI HTN HLD Hypothyroidism Glaucoma Afib Hypotension -continue home medication Interval Hospital Course 10/07/24 - Continue with rocephin for UTI, following urine culture -Meclizine for dizziness -Orthostatic vitals pending -multiple wounds to bilateral lower extremities- Ultrasound ordered -Core temperature stabilized DVT PPx heparin Full code LOS 2 to 3 days Discharge Plan: Home Plan to discharge in: 48 Hours
--- NOTE | 2024-10-07 15:49 | RAD REPORT ---
EXAMINATION: US Lower Extremity Arterial Bilat CLINICAL INDICATION: Female, 78 years old. verify perfusion to bilateral lower extremities TECHNIQUE: Arterial duplex ultrasound of the bilateral lower extremities, with real-time, duplex, and spectral flow Doppler evaluation. COMPARISON: No prior exam. FINDINGS: Grayscale: Grayscale: plaque. Right lower extremity: BOILER WASHER is patent with biphasic waveforms. The SFA through dorsalis pedis arteries are patent, with monop hasic waveforms. Left lower extremity: The BOILER WASHER through dorsalis pedis arteries are patent, with triphasic waveforms. IMPRESSION: No evidence of occlusion. Moderate to advanced peripheral vascular disease with predominantly monopha sic waveforms throughout the interrogated vessels.
--- NOTE | 2024-10-07 15:49 | RAD REPORT ---
EXAMINATION: US Extrem Venous W Compress Jeevan CLINICAL INDICATION: [facility] MAIN pain to bilateral lower extremities Y TECHNIQUE: Complete bilateral duplex sonography of the BILATERAL lower extremity veins was performed. The examination included compression for vein patency, color Doppler imaging and flow augmentation in response to distal compression of the distal external iliac, common femoral, femoral, popliteal, t ibial, and great and small saphenous veins. COMPARISON: No prior exam. FINDINGS: Duplex sonography testing of the veins of the BILATERAL lower extremity was performed. Color flow natali ging shows all veins to be compressible with [id number] color filling. Pulsatile and phasic flow is present within all lower extremity deep and superficial veins examined. IMPRESSION: There is no deep vein or superficial vein thrombosis.
[2024-10-07] MEDS: HYDROCODONE/APAP 5/325 MG TAB PO PRN (16:18)
[2024-10-07] MEDS: FUROSEMIDE 40 MG TABLET PO SCH (20:20)
[2024-10-07] MEDS: TRAZODONE 50 MG TABLET PO SCH (20:20)
[2024-10-07] MEDS: ATORVASTATIN 10 MG TAB PO SCH (20:20)
[2024-10-07] MEDS ORDERED: HOME MED 1 EA UNK (Trazodone Hcl [Trazodone Hcl] 100 MG Tablet) PO SCH (21:00)
[2024-10-07] MEDS ORDERED: HEPARIN 5000 UNIT/ML 1 ML VIAL SQ SCH (21:00)
[2024-10-07] MEDS ORDERED: HOME MED 1 EA UNK (Pravastatin [Pravachol*] 40 MG/TAB Tab) PO SCH (21:00)
--- NOTE | 2024-10-07 21:37 | CON ---
Date of Consultation: 10/07/2024 Diagnosis: Bilateral lower extremities infected ulcers. She came here also with UTI and syncope. History Of Present Illness: This is the case of a 78-year-old patient came to the hospital as above with UTI. Apparently, has history of syncope in the past. They are working her out from the medical standpoint. She has history of AFib, diabetes, glaucoma, hypothyroidism, neuropathies. During the workup, patient found to have also to have bilateral lower extremities chronic wounds with the rednes s associated with it. Apparently, there was some kind of grafting being there before. Patient does not recollect right now. She is trying to remember the name of somebody in the past and she cannot r ecollect. She has not done much for her wounds recently, as per patient. Surgical consult was nikki brennan for a possible debridement. Allergies: CIPRO, ERYTHROMYCIN, METRONIDAZOLE. Past Medical History: As above. Past Surgical History: Include hysterectomy, appendectomy, left foot surgery, C-spine surgery, eye s urgery. Family History: Include stomach and intestinal cancer. Social History: She does not smoke. She does not drink alcohol. Review of Systems: Very limited. It is hard to get some information. She is tired. She does not want to talk too much right now and we might have to come in the morning and discuss once again the findings with her. He r 10 points otherwise unremarkable. See HPI. Physical Examination: Vital Signs: Reviewed. General: Patient is awake and alert. She is tired. She does not want to talk too much about it. Chest: Clear. Abdomen: Soft and depressible. Extremities: She does not want to remove all the dressings. We partially saw the area. Also she al lowed us some pictures that they took previously in that area, but she has bilateral venous stasis ul cers. There was some redness associated with that area, but once again this is not only in the leg, but also in the foot region. Once again, the physical exam has limitations since the patient has manny n, discomfort, and she wants to go back to sleep. Dorsalis pedis pulses are diminished. Laboratory Data: WBC count of 5.1, hemoglobin of 8.7, platelets of 213. Potassium is 4.5, chloride is 109. Venous Doppler shows no deep vein thrombosis. Plan: This 78-year-old patient with bilateral lower extremities venous stasis ulcers, the fibrin pre sent, need some cleaning, but at the same time, I have to see from the medical standpoint, if she toby [place] for me to take her down there to do complete evaluation of the wounds and also debridement. The benefits, alternatives, and risks fully explained to her, but I need to talk to her once again in th e morning and also need to see if I can get more information about her medical status. We can keep h er NPO after midnight until we figure it out and also what workup has been done for what is claimed i n the chart as syncopes in the past. She also may need some clearance from the cardiac standpoint du e to AFib. MONSE/CANDIS Voice ID: [id number] Report ID: [id number]
[2024-10-08] MEDS: HYDRALAZINE HCL 20 MG/ML VIAL IV PRN (03:04)
[2024-10-08] MEDS ORDERED: ALBUTEROL 2.5 MG/3 ML NEB SOL ONE (04:25)
[2024-10-08] MEDS: ALBUTEROL 2.5 MG/3 ML NEB SOL NEB ONE (04:33)
[2024-10-08] MEDS ORDERED: ALBUTEROL 2.5 MG/3 ML NEB SOL NEB PRN (04:35)
[2024-10-08] MEDS: LEVOTHYROXINE SOD 0.025 MG TAB PO SCH (04:57)
[2024-10-08] MEDS: FUROSEMIDE 20 MG/ 2ML VIAL IV ONE (04:57)
[2024-10-08 06:18] LABS: Anion Gap 11.6 mEq/L (5.0-15.0); Magnesium 2.2 mg/dL (1.6-2.4); Phosphorus 3.2 mg/dL (2.5-4.9); Potassium 3.6 mEq/L (3.5-5.1)
[2024-10-08 06:43] LABS: Absolute Eosinophils 0.2 K/uL (0-0.5); Absolute Lymphocytes (CBC) 0.4 K/uL (0.7-4.9); Absolute Monocytes 0.7 K/uL (0.1-1.3); Absolute Neutrophil 10.9 K/uL (1.8-8.0); Basophils % 0.4 % (0-1.3); Eosinophils % 1.6 % (0-4.4); Hematocrit 31.3 % (36.0-45.0); Lymphocytes % 3.2 % (15.3-44.8); MCH 23.7 pg (27.0-35.0); MCHC 32.1 g/dL (32.0-36.0); MCV 73.9 fL (80-100); MPV 7.8 fL (7.6-11.3); Monocytes % 5.7 % (3.3-12.3); Neutrophils % 89.1 % (41.7-73.7); Nucleated Red Blood Cells % 0.1 % (0-0); Platelets 242 thou/uL (152-406); RBC Red Blood Cell Count 4.23 M/uL (3.86-4.86); Red Cell Distribution Width 18.3 % (12.1-15.2)
[2024-10-08] MEDS: METOPROLOL TARTRATE 5 MG/5 ML INJ IV STA (08:28)
[2024-10-08 08:49] LABS: Blood Morphology Comment NOT SEEN (NOT SEEN); Platelet Estimate ADEQ; White Blood Cell Scan OK (OK)
[2024-10-08] MEDS: predniSONE 10 MG TAB PO SCH (09:10)
[2024-10-08] MEDS: ESCITALOPRAM OXALATE 10 MG TABLET PO SCH (09:10)
[2024-10-08] MEDS: METOPROLOL TAR 25 MG TAB PO ONE (09:10)
--- NOTE | 2024-10-08 09:55 | P.CNS ---
Date of Consult: 10/08/24 Chief Complaint: Syncope, trauma fall, UTI History of Present Illness: Patient with PMH of atrial fibrillation, chronic diastolic heart failure, presented with syncope, she mention that she was sitting down on her desk before passing out, she hit her face and nose, denies chest pain, no palpitations, no MCMAHON, patient overall functional status is very poor. Allergies ciprofloxacin Allergy (Verified 08/31/19 21:43) Hallucinations erythromycin base Allergy (Verified 08/31/19 21:43) Itching/Hives/Rash losartan Allergy (Verified 08/31/19 21:43) Hallucinations Macrolide Antibiotics Allergy (Verified 08/31/19 21:43) Itching/Hives/Rash metronidazole [From Flagyl] Allergy (Verified 08/31/19 21:43) Itching/Hives/Rash Penicillins Allergy (Verified 08/31/19 21:43) Itching/Hives/Rash pentoxifylline Allergy (Verified 08/31/19 21:43) Itching/Hives/Rash codeine Adverse Reaction (Intermediate, Verified 08/31/19 21:43) Hallucinations Home medications list reviewed: Yes Home Medications: Furosemide 40 mg PO BID 08/31/19 Insulin Aspart [Novolog Flexpen] 2 units SQ TIDWM 08/31/19 Levothyroxine Sodium 25 mcg PO DAILY 08/31/19 Pantoprazole [Protonix Tab*] 40 mg PO DAILY 08/31/19 Pramipexole Di-HCl [Pramipexole ER] 0.75 mg PO BEDTIME 08/31/19 traMADol HCL [Ultram*] 50 mg PO BID 08/31/19 Pravastatin [Pravachol*] 80 mg PO BEDTIME 05/08/21 Apixaban [Eliquis] 5 mg PO BID #60 tablet 06/02/21 Benzonatate [Tessalon Perle*] 100 mg PO TID PRN cap 06/02/21 Metoprolol Tartrate [Lopressor*] 25 mg PO BID 6AM 6PM tab 06/02/21 Baclofen 10 mg PO TID 10/06/24 Clopidogrel Bisulfate [Plavix] 75 mg PO DAILY 10/06/24 Pregabalin 50 mg PO TID 10/06/24 Spironolactone 25 mg PO DAILY 10/06/24 predniSONE [Prednisone*] 10 mg PO DAILY 10/06/24 Escitalopram Oxalate 10 mg PO DAILY 10/07/24 Insulin Degludec [Tresiba Flextouch U-100] 32 unit SQ DAILY 10/07/24 Nystatin Powder [Mycostatin (Powder)*] 15 gm TOP BID 10/07/24 Trazodone HCl 100 mg PO BEDTIME 10/07/24 glipiZIDE [Glipizide] 2.5 mg PO DAILY 10/07/24 - Past Medical/Surgical History Diabetic: Yes -: Pneumonia -: DM -: HTN -: HLD -: Hypothyroidism -: Neuropathy -: Glaucoma -: Atrial Fibrillation -: hypotension -: EYE SX -: CERVICAL SPINE SX -: HYSTERECTOMY -: APPENDECTOMY -: left FOOT SX - Family History Mother Medical History: Cancer Notes: stomach and intestinal cancer Father Medical History: Heart disease - Social History Smoking Status: Unknown if ever smoked Alcohol use: No CD- Drugs: No Caffeine use: Yes Place of Residence: Home Review of Systems 10-point ROS is otherwise unremarkable Physical Examination Temp Pulse Resp BP Pulse Ox 98.3 F 84 20 207/75 H 93 10/08/24 04:00 10/08/24 09:11 10/08/24 04:00 10/08/24 09:11 10/08/24 04:00 General: Alert, In no apparent distress HEENT: Atraumatic, PERRLA, Mucous membr. moist/pink, EOMI, Sclerae nonicteric Neck: Supple, 2+ carotid pulse no bruit, No LAD, Without JVD or thyroid abnormality Respiratory: Clear to auscultation bilaterally, Normal air movement Cardiovascular: Regular rate/rhythm, Normal S1 S2 Gastrointestinal: Normal bowel sounds, No tenderness Musculoskeletal: No tenderness Integumentary: No rashes Neurological: Normal gait, Normal speech, Normal tone, Normal affect Lymphatics: No axilla or inguinal lymphadenopathy - Problems (1) Syncope Current Visit: Yes Status: Acute Plan: continue to monitor on tele outpatient follow up with cardiology for an event monitor (2) Atrial fibrillation Current Visit: Yes Status: Acute Plan: currently in sinus rhythm with PVCs, continue Eliquis 5 mg BID, ok to hold in case patient need surgical intervention but need to be resumed GI after surgery. (3) Preoperative clearance Current Visit: Yes Status: Acute Plan: patient is not having any active cardiac symptoms, get Echo if Echo shows normal EF then patient is cleared as moderate cardiac risk for surgery. (4) PAD (peripheral artery disease) Current Visit: No Status: Chronic Plan: US shows monophasic waveform on the right LE, outpatient follow up with vascular team continue ASA 81 mg daily continue Lipitor
--- NOTE | 2024-10-08 11:32 | ECHO ---
HEIGHT: 5 ft 7 in WEIGHT: 241 lb 0 oz DATE OF STUDY: 10/08/[address]: Anna Perez NP 2-DIMENSIONAL: YES M.MODE: YES DOPPLER: YES COLOR FLOW: YES TDS: NO PORTABLE: YES DEFINITY: NO BUBBLE STUDY: NO DIAGNOSIS: SYNCOPE CARDIAC HISTORY: CATHERIZATION:YES SURGERY: NO PROSTHETIC VALVE: NO PACEMAKER: NO MEASUREMENTS (cm) DIASTOLIC (NORMALS) SYSTOLIC (NORMALS) IVSd 1.2 (0.6-1.2) LA Diam 3.8 (1.9-4.0) LVEF 60-65% LVIDd 4.8 (3.5-5.7) LVIDs 3.6 (2.0-3.5) %FS 26% LVPWd 1.2 (0.6-1.2) Ao Diam 2.5 (2.0-3.7) 2 DIMENSIONAL ASSESSMENT: RIGHT ATRIUM: NORMAL LEFT ATRIUM: MODERATELY DILATED RIGHT VENTRICLE: NORMAL LEFT VENTRICLE: NORMAL TRICUSPID VALVE: MILD TRICUSPID REGURGITATION MITRAL VALVE: MILD MITRAL REGURGITATION PULMONIC VALVE: NORMAL AORTIC VALVE: NORMAL PERICARDIAL EFFUSION: NONE AORTIC ROOT: NORMAL LEFT VENTRICULAR WALL MOTION: NORMAL. DOPPLER/COLOR FLOW: DIASTOLIC DYSFUNCTION. COMMENTS: 1. NORMAL LEFT VENTRICULAR SYSTOLIC FUNCTION. LEFT VENTRICULAR EJECTION FRACTION 60-65%. NORMAL WALL MOTION. 2. DIASTOLIC DYSFUNCTION. 3. ELEVATED FILLING PRESSURE. RIGHT ATRIAL PRESSURE 15-20 mmHg. TECHNOLOGIST: JENNY HERNANDEZ
--- NOTE | 2024-10-08 11:32 | EKG ---
Test Date: 2024-10-06 Test Time: 10:12:08 Senior Art Director: SIVAN MEASUREMENT RESULTS: Intervals: Rate: 57 NH: QRSD: 88 QT: 502 QTc: 488 Rosie: P: 75 NH: QRS: 60 T: 1 INTERPRETIVE STATEMENTS: Sinus rhythm with AV dissociation and Junctional rhythm with sinus/atrial capture with occasional premature ventricular complex Low voltage QRS Abnormal ECG Compared to ECG 02/03/2022 17:46:45 Junctional rhythm now present Ventricular premature complex(es) now present AV dissociation now present Low QRS voltage now present Sinus tachycardia no longer present Atrial premature complex(es) no longer present Left-axis deviation no longer present Myocardial infarct finding no longer present Electronically Signed On 10-08-24 11:29:25 CDT by Sukhdev Koenig
--- NOTE | 2024-10-08 13:02 | P.PN ---
Date of Service: 10/08/24 Subjective No acute events overnight answers questions appropriately ROS 10 point ROS as noted above, otherwise negative Physical Exam General: Alert and Oriented x3 HEENT: Other (Hematoma and bruise to forehead) Neck: Supple, 2+ carotid pulse no bruit Respiratory: Clear to auscultation bilaterally, Normal air movement, on 2 LNC Cardiovascular: Normal pulses, Regular rate/rhythm Capillary refill: <2 Seconds Gastrointestinal: Normal bowel sounds Musculoskeletal: Other (Multiple wounds) Neurological: Normal speech, Normal tone Vitals Reviewed Problem list UTI (POA) Hypthermia likely 2/2 endotoxin release Trauma fall with Facial contusions Frequent syncope and dizziness/lightheadedness Anemia Multiple wounds Neuropathy DM with hyperglycemia HTN HLD Hypothyroidism Glaucoma Afib Hypotension Assessment and Plan UTI (POA) Hypthermia likely 2/2 endotoxin release -Follow blood and urine cultures -Rocephin, she has multiple antibiotic allergies -IVF -monitoring for SIRs/sepsis -Continue go hugger and recheck temperature rectally Trauma fall with Facial contusions Frequent syncope and dizziness/lightheadedness -CT head/spine with no acute finding -supportive care -orthostatic vitals -Supportive care -echo and cardiology consult Anemia - Monitor H&H daily - Transfuse as needed - Anemia workup in the a.m. Multiple wounds Neuropathy -Consult wound care -consult Dr. Hernadez DM with hyperglycemia -Accucheck with SSI HTN HLD Hypothyroidism Glaucoma Afib Hypotension -continue home medication including eliquis DVT PPx heparin Full code LOS 2 to 3 days Discharge Plan: Home Plan to discharge in: 48 Hours <Asaf Santizo - Last Filed: 10/08/24 13:00> Patient seen and examined. Plan of care discussed with Asaf Santizo. Patient evaluated by cardiology who recommend outpatient event monitor. Continue telemetry Echocardiogram is pending. Patient evaluated by Dr. Hernadez who is considering debridement of her leg wound. Preop clearance pending echocardiogram results. Continue IV Rocephin. Analgesics as needed. <nathalia edmond - Last Filed: 10/08/24 15:20>
[2024-10-08] MEDS: METOPROLOL TAR 25 MG TAB PO SCH (18:01)
[2024-10-09 06:04] LABS: Absolute Basophils 0.1 K/uL (0-0.5); Absolute Eosinophils 0.3 K/uL (0-0.5); Absolute Lymphocytes (CBC) 0.7 K/uL (0.7-4.9); Absolute Monocytes 0.8 K/uL (0.1-1.3); Absolute Neutrophil 6.2 K/uL (1.8-8.0); Basophils % 0.8 % (0-1.3); Eosinophils % 3.8 % (0-4.4); Hematocrit 26.7 % (36.0-45.0); Hemoglobin 8.7 g/dL (12.0-15.0); Lymphocytes % 8.9 % (15.3-44.8); MCH 23.9 pg (27.0-35.0); MCHC 32.7 g/dL (32.0-36.0); MCV 73.3 fL (80-100); MPV 7.9 fL (7.6-11.3); Monocytes % 9.5 % (3.3-12.3); Nucleated Red Blood Cells % 0.1 % (0-0); Platelets 216 thou/uL (152-406); RBC Red Blood Cell Count 3.64 M/uL (3.86-4.86)
[2024-10-09 06:18] LABS: Anion Gap 7.4 mEq/L (5.0-15.0); Phosphorus 3.3 mg/dL (2.5-4.9); Potassium 3.4 mEq/L (3.5-5.1)
[2024-10-09] MEDS: POTASSIUM 25 MEQ EFFERV TAB PO ONE (06:35)
--- NOTE | 2024-10-09 09:26 | P.PN ---
Date of Service: 10/09/24 Subjective No acute events overnight answers questions appropriately More alert today ROS 10 point ROS as noted above, otherwise negative Physical Exam General: Alert and Oriented x3 HEENT: Other (Hematoma and bruise to forehead) Neck: Supple, 2+ carotid pulse no bruit Respiratory: Clear to auscultation bilaterally, Normal air movement, on 2 LNC Cardiovascular: Normal pulses, Regular rate/rhythm Capillary refill: <2 Seconds Gastrointestinal: Normal bowel sounds Musculoskeletal: Other (Multiple wounds) Neurological: Normal speech, Normal tone Vitals Reviewed Problem list UTI (POA) Hypthermia likely 2/2 endotoxin release Trauma fall with Facial contusions Frequent syncope and dizziness/lightheadedness Anemia Multiple wounds Neuropathy DM with hyperglycemia HTN HLD Hypothyroidism Glaucoma Afib Hypotension Assessment and Plan UTI (POA) Hypothermia-resolved -Follow blood and urine cultures -Luis, she has multiple antibiotic allergies - Blood cultures with no growth in 24 hours, await urine culture Trauma fall with Facial contusions Frequent syncope and dizziness/lightheadedness -CT head/spine with no acute finding -supportive care -Echo performed normal LVEF, diastolic dysfunction noted -Cardiology following, recommends outpatient event monitor - PT consultation, continue telemetry - Troponin negative x 3 Anemia - Monitor H&H daily - Transfuse as needed Multiple wounds Neuropathy -Consult wound care -consult Dr. Hernadez DM with hyperglycemia -Accucheck with SSI HTN HLD Hypothyroidism Glaucoma Afib Hypotension -continue home medication including eliquis DVT PPx heparin Full code LOS 2 to 3 days Discharge Plan: Home Plan to discharge in: 48 Hours
--- NOTE | 2024-10-09 09:27 | P.PN ---
Subjective Date of Service: 10/09/24 Chief Complaint: Syncope, trauma fall, UTI Subjective: No new changes, No C/O voiced, Tolerating diet, Ambulating, Improving Review of Systems 10-point ROS is otherwise unremarkable Physical Examination - Vital Signs Temperature: 97.6 F Blood Pressure: 170/74 Pulse: 69 Respirations: 18 Pulse Ox (%): 95 - Physical Exam General: Alert, In no apparent distress HEENT: Atraumatic, PERRLA, EOMI Neck: Supple, JVD not distended Respiratory: Clear to auscultation bilaterally, Normal air movement Cardiovascular: Regular rate/rhythm, Normal S1 S2 Gastrointestinal: Normal bowel sounds, No tenderness Musculoskeletal: No tenderness Integumentary: No rashes Neurological: Normal speech, Normal tone, Normal affect Lymphatics: No axilla or inguinal lymphadenopathy - Studies Medications List Reviewed: Yes Assessment And Plan - Current Problems (Diagnosis) (1) Syncope Current Visit: Yes Status: Acute Plan: continue to monitor on tele outpatient follow up with cardiology for an event monitor (She follows up with [facility] Cardiology in [facility]) Cardiology will sign off, please call with any questions. (2) Atrial fibrillation Current Visit: Yes Status: Acute Plan: currently in sinus rhythm with PVCs, continue Eliquis 5 mg BID, ok to hold in case patient need surgical intervention but need to be resumed GI after surgery. (3) Preoperative clearance Current Visit: Yes Status: Acute Plan: patient is not having any active cardiac symptoms, Echo shows normal LV systolic function with DD and elevated filling pressure patient is cleared as moderate cardiac risk, advise to monitor volume status closely during surgery. (4) PAD (peripheral artery disease) Current Visit: No Status: Chronic Plan: US shows monophasic waveform on the right LE, outpatient follow up with vascular team (she follows up with Dr. Soares, vascular from [facility] Vascular team) continue ASA 81 mg daily continue Lipitor
[2024-10-10 07:05] LABS: Absolute Basophils 0.1 K/uL (0-0.5); Absolute Eosinophils 0.4 K/uL (0-0.5); Absolute Lymphocytes (CBC) 0.9 K/uL (0.7-4.9); Absolute Monocytes 0.7 K/uL (0.1-1.3); Absolute Neutrophil 4.6 K/uL (1.8-8.0); Basophils % 1.1 % (0-1.3); Eosinophils % 6.3 % (0-4.4); Hematocrit 30.1 % (36.0-45.0); Hemoglobin 9.5 g/dL (12.0-15.0); Lymphocytes % 13.4 % (15.3-44.8); MCH 23.3 pg (27.0-35.0); MCHC 31.7 g/dL (32.0-36.0); MCV 73.6 fL (80-100); MPV 7.8 fL (7.6-11.3); Monocytes % 10.8 % (3.3-12.3); Neutrophils % 68.4 % (41.7-73.7); Nucleated Red Blood Cells % 0.1 % (0-0); Platelets 221 thou/uL (152-406); RBC Red Blood Cell Count 4.09 M/uL (3.86-4.86)
--- NOTE | 2024-10-10 09:08 | P.PN ---
Date of Service: 10/10/24 Subjective No acute events overnight Doing well today Pending debridement today with general surgery ROS 10 point ROS as noted above, otherwise negative Physical Exam General: Alert and Oriented x3 HEENT: Other (Hematoma and bruise to forehead) Neck: Supple, 2+ carotid pulse no bruit Respiratory: Clear to auscultation bilaterally, Normal air movement, on 2 LNC Cardiovascular: Normal pulses, Regular rate/rhythm Capillary refill: <2 Seconds Gastrointestinal: Normal bowel sounds Musculoskeletal: Other (Multiple wounds) Neurological: Normal speech, Normal tone Vitals Reviewed Problem list UTI (POA) Hypthermia likely 2/2 endotoxin release Trauma fall with Facial contusions Frequent syncope and dizziness/lightheadedness Anemia Multiple wounds Neuropathy DM with hyperglycemia HTN HLD Hypothyroidism Glaucoma Afib Hypotension Assessment and Plan UTI (POA) Hypothermia-resolved -Follow blood and urine cultures -Rocephin, she has multiple antibiotic allergies -Blood cultures with no growth in 24 hours -Urine culture with Enterococcus faecalis sensitive to penicillins Trauma fall with Facial contusions Frequent syncope and dizziness/lightheadedness -CT head/spine with no acute finding -supportive care -Echo performed normal LVEF, diastolic dysfunction noted -Cardiology following, recommends outpatient event monitor - PT consultation, continue telemetry - Troponin negative x 3 Anemia - Monitor H&H daily - Transfuse as needed Multiple wounds Neuropathy -Consult wound care -consult Dr. Hernadez - Debridement today with general surgery DM with hyperglycemia -Accucheck with SSI HTN HLD Hypothyroidism Glaucoma Afib Hypotension -continue home medication including eliquis DVT PPx eliquis Full code LOS 2 to 3 days Discharge Plan: Home Plan to discharge in: 48 Hours
[2024-10-10 09:17] LABS: Anion Gap 8.8 mEq/L (5.0-15.0); Phosphorus 3.5 mg/dL (2.5-4.9); Potassium 3.8 mEq/L (3.5-5.1)
[2024-10-10] MEDS: NA CHLORIDE 0.9% 1,000 ML ONE (11:02)
[2024-10-10] MEDS ORDERED: ONDANSETRON 4 MG/2 ML VIAL ONE (13:14)
[2024-10-10] MEDS ORDERED: propofoL 200 MG/20 ML VIAL IV ONE (13:14)
[2024-10-10] MEDS ORDERED: LIDOCAINE 1% MPF 5 ML VIAL ONE (13:14)
[2024-10-10] MEDS ORDERED: MIDAZOLAM HCL 2 MG/2 ML INJ ONE (13:14)
[2024-10-10] MEDS ORDERED: FENTANYL CITR 100 MCG/2 ML ONE (13:14)
[2024-10-10] MEDS: COLLAGENASE 30 GM OINTMENT TOP ONE (14:25)
--- NOTE | 2024-10-10 14:46 | P.BOP ---
Preoperative diagnosis: bilateral LE necrotic ulcers Postoperative diagnosis: same Primary procedure: EXcisional subQ debridment of necrotic ulcer Secondary procedure: 1. Right lateral foot 7x4cm, 2. left lateral leg 5x4cm, 3. left [id number] Estimated blood loss: <10cc Specimen: necrotic tissue bx Anesthesia: General Complications: None Drain(s): Other (santyl) Transferred to: Recovery Room Condition: Good
[2024-10-10] MEDS: HYDROMORPHONE HCL 1 MG/ML INJ ONE (15:00)
--- NOTE | 2024-10-10 23:50 | OP ---
Date of Procedure: 10/10/2024 Surgeon: Fredrick Hernadez MD Preoperative Diagnosis: Bilateral lower extremity necrotic ulcers; there is a combination between ve nous stasis disease and diabetic ulcer. Postoperative Diagnosis: Bilateral lower extremity necrotic ulcers; there is a combination between v enous stasis disease and diabetic ulcer. Procedures: 1. Excisional subcutaneous debridement of the necrotic diabetic ulcer on the right lateral foot, 7 x 4 cm. 2. Excisional subcutaneous debridement of necrotic venous stasis ulcer on the left lateral leg, 5 x 4 cm. 3. Excisional subcutaneous debridement of necrotic ulcer, diabetic, on the left ankle, 1 x 1 cm. Estimated Blood Loss: Less than 10 cc. Specimen: Necrotic tissue biopsy. Anesthesia: General plus local. Indications: This is the case of a female who comes to us with multiple medical problems, also found to have multiple necrotic ulcers in the lower extremities with different etiologies. I was asked to clean the areas. The benefits, alternatives, and risks of debridement were fully explained, which i ncluded, but not limited to, infection, bleeding, damage to adjacent structures, anesthesia complicat ion, nonhealing wound, NV, even . She also understands this may not relieve any symptoms. She might need more than one surgical intervention. She understood, signed a consent. The patient was a dvised the importance of following up [facility] as an outpatient for the next few m [facility] to not only treat diabetic ulcer, but also venous stasis disease. She understood. Procedure In Detail: The patient was brought to the operating room, placed in supine position. Anes thesia was done without complication. Bilateral lower extremities were prepped and draped in a steri le fashion. Time-out was called. Local anesthesia was applied to the areas of concern. Then using a combination of 11 blade, curette, scissors, and pickup, we proceeded to remove the necrotic tissue in all the areas mentioned above. Hemostasis was obtained with the help of Bovie cauterizer and pres sure. The patient tolerated each procedure well. Santyl was placed over the area and then dressing changes to bilateral lower extremities. The patient tolerated procedure well. The patient was sent to recovery in stable condition. Once again, we advised the importance and treatment of venous stasi s disease, including compression therapy. MONSE/CADNIS Voice ID: [id number] Report ID: [id number]
[2024-10-11 08:02] LABS: Absolute Basophils 0.1 K/uL (0-0.5); Absolute Eosinophils 0.4 K/uL (0-0.5); Absolute Lymphocytes (CBC) 0.7 K/uL (0.7-4.9); Absolute Monocytes 0.6 K/uL (0.1-1.3); Absolute Neutrophil 5.6 K/uL (1.8-8.0); Basophils % 0.7 % (0-1.3); Eosinophils % 5.9 % (0-4.4); Hematocrit 33.2 % (36.0-45.0); Hemoglobin 10.5 g/dL (12.0-15.0); Lymphocytes % 9.1 % (15.3-44.8); MCH 23.3 pg (27.0-35.0); MCHC 31.6 g/dL (32.0-36.0); MCV 73.8 fL (80-100); MPV 7.7 fL (7.6-11.3); Neutrophils % 76.3 % (41.7-73.7); Nucleated Red Blood Cells % 0.1 % (0-0); Platelets 218 thou/uL (152-406); Red Cell Distribution Width 17.5 % (12.1-15.2)
[2024-10-11 08:13] LABS: Phosphorus 3.7 mg/dL (2.5-4.9)
[2024-10-11] MEDS ORDERED: CHLORASEPTIC LOZENGES PO PRN (08:24)
[2024-10-11] MEDS ORDERED: BENZONATATE 100 MG CAP PO PRN (08:24)
[2024-10-11 09:27] VITALS: TEMP 98
[2024-10-11 10:33] VITALS: O2SAT 99
[2024-10-11 12:20] VITALS: BP 148/78
--- NOTE | 2024-10-11 15:29 | P.DS ---
Admission Date: 10/06/24 Discharge Date: 10/11/24 Disposition: DC HOME/HOME HEALTH CARE Discharge Condition: GOOD Reason for Admission: Syncope, trauma fall, UTI Brief History of Present Illness: Stephany Bran is a 78 year old female with pmhx Atrial fibrillation; diabetes mellitus; Glaucoma; Hypothyroidism; neuropathy, osteoarthritis; Osteoporosis, chronic wounds who presents to the ED after a syncopal episode falling from her desk chair and hitting her head on her desk. She reports being dizzy intermittently for several months that is occurring whether laying down, sitting, or standing. This does not seem to triggered by positioning. She reports having "a lot of UTIs" recently and feels she has urinary tract symptoms today. She has a history of chronic wounds to bilateral lower extremities and treated with skin grafts which failed on the right ankle. Laboratory evaluation significant for left shift neutrophils 82, H&H 05/03, BUN/creatinine 21/1.38, GFR 39, serum glucose 186, CT head and cervical spine reports "No evidence of acute intracranial abnormality. Mild nasal bone fracture suspected. Suggest correlation with point tenderness. No evidence of acute osseous abnormality of the cervical spine" CT chest abdomen pelvis reports "CHF pattern is suspected with [id number] bilateral pleural effusions. No acute trauma-related abnormality detected." Stephany will be admitted to hospitalist service for further evaluation and treatment of sepsis secondary to UTI and multiple wounds. 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 Her blood cultures had no growth in 24 hours, her troponin was negative and trended flat. She was monitored on telemetry throughout her hospitalization without any significant arrhythmias reported aside from a short episode of A-fib RVR resolved continuously. She was seen by cardiology and had echocardiogram performed which showed normal LVEF. Cardiology recommends further evaluation as an outpatient with likely an event monitor. CT does show suspected small nasal bone fracture, no surgery is needed at this time. In regards to her wounds she was evaluated by general surgery who performed a debridement on 10/10. Patient is doing well postoperatively and instructed to follow-up in the wound care center on 10/15, she will need to call for an appointment. Home medications should be continued as previously taken prescription for antibiotic sent to the pharmacy in [facility] for additional 5 days Patient follow-up with cardiologyDrKeri Chavis in 1 to 2 weeks Patient should also follow-up with your primary care doctor in 1 to [address] Hernadez in the wound healing clinic next week on Tuesday Wound care instructions from Dr. Satya Guadarrama with sterile gauze to right foot and left leg wounds daily Follow up in wound care center on the first floor here at the hospital Call [phone] to schedule appointment for next Sunday 10/15 Vital Signs/Physical Exam: Temp Pulse Resp BP Pulse Ox 98 F 66 16 148/78 H 94 10/11/24 12:00 10/11/24 12:00 10/11/24 12:00 10/11/24 12:00 10/11/24 12:00 General: Alert, In no apparent distress, Oriented x3 HEENT: Atraumatic, PERRLA Neck: Supple, JVD not distended Respiratory: Clear to auscultation bilaterally, Normal air movement Cardiovascular: Regular rate/rhythm, Normal S1 S2 Gastrointestinal: Normal bowel sounds, No tenderness Musculoskeletal: No tenderness Integumentary: Other (bruising to face, dressing to kenneth le) Neurological: Normal speech, Normal affect Laboratory Data at Discharge: WBC 7.40 thou/uL (4.3-10.9) 10/11/24 07:43 Hgb 10.5 g/dL (12.0-15.0) L D 10/11/24 07:43 Hct 33.2 % (36.0-45.0) L 10/11/24 07:43 Plt Count 218 thou/uL (152-406) 10/11/24 07:43 Sodium 139 mEq/L (136-145) 10/11/24 07:43 Potassium 4.0 mEq/L (3.5-5.1) 10/11/24 07:43 BUN 19 mg/dL (7-18) H 10/11/24 07:43 Creatinine 1.44 mg/dL (0.55-1.02) H 10/11/24 07:43 Glucose 147 mg/dL (74-106) H 10/11/24 07:43 Phosphorus 3.7 mg/dL (2.5-4.9) 10/11/24 07:43 Magnesium 2.0 mg/dL (1.6-2.4) 10/11/24 07:43 Home Medications: Furosemide 40 mg PO BID 08/31/19 Insulin Aspart [Novolog Flexpen] 2 units SQ TIDWM 08/31/19 Levothyroxine Sodium 25 mcg PO DAILY 08/31/19 Pantoprazole [Protonix Tab*] 40 mg PO DAILY 08/31/19 Pramipexole Di-HCl [Pramipexole ER] 0.75 mg PO BEDTIME 08/31/19 traMADol HCL [Ultram*] 50 mg PO BID 08/31/19 Pravastatin [Pravachol*] 80 mg PO BEDTIME 05/08/21 Apixaban [Eliquis] 5 mg PO BID #60 tablet 06/02/21 Benzonatate [Tessalon Perle*] 100 mg PO TID PRN cap 06/02/21 Metoprolol Tartrate [Lopressor*] 25 mg PO BID 6AM 6PM tab 06/02/21 Baclofen 10 mg PO TID 10/06/24 Clopidogrel Bisulfate [Plavix] 75 mg PO DAILY 10/06/24 Pregabalin 50 mg PO TID 10/06/24 Spironolactone 25 mg PO DAILY 10/06/24 predniSONE [Prednisone*] 10 mg PO DAILY 10/06/24 Escitalopram Oxalate 10 mg PO DAILY 10/07/24 Insulin Degludec [Tresiba Flextouch U-100] 32 unit SQ DAILY 10/07/24 Nystatin Powder [Mycostatin (Powder)*] 15 gm TOP BID 10/07/24 Trazodone HCl 100 mg PO BEDTIME 10/07/24 glipiZIDE [Glipizide] 2.5 mg PO DAILY 10/07/24 Cefpodoxime Proxetil 100 mg PO BID 5 Days #10 tab 10/11/24 New Medications: Cefpodoxime Proxetil 100 mg PO BID 5 Days #10 tab Physician Discharge Instructions: Patient was admitted to the hospital for syncope, she was found to have a urinary tract infection with Enterococcus faecalis as well as some chronic lower extremities. Her blood cultures had no growth in 24 hours, her troponin was negative and trended flat. She was monitored on telemetry throughout her hospitalization without any significant arrhythmias reported aside from a short episode of A-fib RVR resolved continuously. She was seen by cardiology and had echocardiogram performed which showed normal LVEF. Cardiology recommends further evaluation as an outpatient with likely an event monitor. CT does show suspected small nasal bone fracture, no surgery is needed at this time. In regards to her wounds she was evaluated by general surgery who performed a debridement on 10/10. Patient is doing well postoperatively and instructed to follow-up in the wound care center on 10/15, she will need to call for an appointment. Home medications should be continued as previously taken prescription for antibiotic sent to the pharmacy in [facility] for additional 5 days Patient follow-up with cardiologyDr. Alessandro russell in 1 to 2 weeks Patient should also follow-up with your primary care doctor in 1 to [address] Hernadez in the wound healing clinic next week on Tuesday Wound care instructions from Dr. Satya Guadarrama with sterile gauze to right foot and left leg wounds daily Follow up in wound care center on the first floor here at the hospital Call [phone] to schedule appointment for next Sunday 10/15 Diet: AHA Activity: WC, transfers Followup: Sukhdev Koenig MD [ACTIVE - CAN ADMIT] - 1-2 Weeks Fredrick Hernadez MD [ACTIVE - CAN ADMIT] - (Call [facility] - [phone] to schedule appointment for next Sunday 10/15 ) NONE,NONE [Primary Care Provider] - 1-2 Weeks Time spent managing pt's care (in minutes): 55
== END 2024-10-11 15:17 | disposition home health service (06) | DRG 854 ==
LOC: ER 09:42 → ERHOLD 12:41 → 4TH 13:38
PROVIDERS: ADMIT Internal Medicine; ATTEND Hospitalist
PROC: 0JBN0ZZ Excision of Right Lower Leg Subcutaneous Tissue and Fascia, Open Approach (ICD-10-PCS; 2024-10-10)
PROC: 0T9B70Z Drainage of Bladder with Drainage Device, Via Natural or Artificial Opening (ICD-10-PCS; 2024-10-10)
PROC: 0JBP0ZZ Excision of Left Lower Leg Subcutaneous Tissue and Fascia, Open Approach (ICD-10-PCS; principal; 2024-10-10 13:30)
DX: A41.9 Sepsis, unspecified organism (principal); E11.52 Type 2 diabetes mellitus with diabetic peripheral angiopathy with gangrene; I50.32 Chronic diastolic (congestive) heart failure; N39.0 Urinary tract infection, site not specified; S06.9X3A Unspecified intracranial injury with loss of consciousness of 1 hour to 5 hours 59 minutes, initial encounter; N17.9 Acute kidney failure, unspecified; L97.819 Non-pressure chronic ulcer of other part of right lower leg with unspecified severity; L97.829 Non-pressure chronic ulcer of other part of left lower leg with unspecified severity; I11.0 Hypertensive heart disease with heart failure; I48.91 Unspecified atrial fibrillation; E03.9 Hypothyroidism, unspecified; D64.9 Anemia, unspecified; M19.90 Unspecified osteoarthritis, unspecified site; E78.5 Hyperlipidemia, unspecified; M81.0 Age-related osteoporosis without current pathological fracture; E11.65 Type 2 diabetes mellitus with hyperglycemia; E11.40 Type 2 diabetes mellitus with diabetic neuropathy, unspecified; H40.9 Unspecified glaucoma; E11.39 Type 2 diabetes mellitus with other diabetic ophthalmic complication; E11.51 Type 2 diabetes mellitus with diabetic peripheral angiopathy without gangrene; I49.3 Ventricular premature depolarization; H42 Glaucoma in diseases classified elsewhere; I83.018 Varicose veins of right lower extremity with ulcer other part of lower leg; I83.028 Varicose veins of left lower extremity with ulcer other part of lower leg; I87.8 Other specified disorders of veins; S00.33XA Contusion of nose, initial encounter; S00.83XA Contusion of other part of head, initial encounter; B95.2 Enterococcus as the cause of diseases classified elsewhere; R68.0 Hypothermia, not associated with low environmental temperature; Z88.1 Allergy status to other antibiotic agents; Z79.4 Long term (current) use of insulin; Z88.0 Allergy status to penicillin; Z88.5 Allergy status to narcotic agent; Z88.8 Allergy status to other drugs, medicaments and biological substances; Z79.82 Long term (current) use of aspirin; Z79.01 Long term (current) use of anticoagulants; Z79.52 Long term (current) use of systemic steroids; Z79.899 Other long term (current) drug therapy; Z79.890 Hormone replacement therapy; Z90.710 Acquired absence of both cervix and uterus; Y93.9 Activity, unspecified; W07.XXXA Fall from chair, initial encounter; Y92.009 Unspecified place in unspecified non-institutional (private) residence as the place of occurrence of the external cause; Y99.9 Unspecified external cause status
CPT/HCPCS: 36415; 51702; 70450; 71250; 72125; 74176; 80048; 81001; 82550; 82607; 82728; 82947; 83540; 83605; 83735; 84100; 84132; 84439; 84443; 84466; 84484; 85025; 87040; 87077; 87086; 87088; 87186; 88304; 93005; 93306; 93925; 93970; 94640; 96365; 97110; 97161; 97530; 99285; J0360; J0696; J1171; J1815; J1938; J2003; J2250; J2270; J2405; J2704; J3010; J3590; J7030; J7512; J7613; J8597

== ENCOUNTER 2024-11-06 12:08 | Inpatient (IN) | payer OTHER ==
[2024-11-06 12:50] LABS: Absolute Basophils 0.1 K/uL (0-0.5); Absolute Eosinophils 0.5 K/uL (0-0.5); Absolute Monocytes 0.7 K/uL (0.1-1.3); Absolute Neutrophil 7.2 K/uL (1.8-8.0); Basophils % 0.6 % (0-1.3); Eosinophils % 5.2 % (0-4.4); Hematocrit 25.9 % (36.0-45.0); Hemoglobin 8.6 g/dL (12.0-15.0); Lymphocytes % 10.3 % (15.3-44.8); MCH 24.3 pg (27.0-35.0); MCHC 33.1 g/dL (32.0-36.0); MCV 73.4 fL (80-100); MPV 8.4 fL (7.6-11.3); Monocytes % 7.2 % (3.3-12.3); Neutrophils % 76.7 % (41.7-73.7); Platelets 200 thou/uL (152-406); RBC Red Blood Cell Count 3.53 M/uL (3.86-4.86)
[2024-11-06 12:51] LABS: PT Prothrombin Time 19.6 SECONDS (10-13.0); Protime INR 1.77
--- OUTSIDE RECORDS SUMMARY | 2024-11-06 13:04 | XMS REPORT | Continuity of Care Document ---
Author Name Unknown Address [address] [facility] [address] [place] [address] [facility] Address [address] [facility] [place] [address] Care Team Providers Care Fountain Manager Name Role Phone OCHOA ESCAMILLA Primary Care Physician Unav ailable [id number] Attending Clinician Unavailable BRIAR CUTTER PENDING, BRIAR CUTTER PENDING Attending Clinician Unavailable Ochoa Escamilla MD Attending Clinician +[phone] Brian Israel MD Attending Clinician [phone] JEROME SOARES Attending Clinician Unavailable Doctor Unassigned, Wells Attending Clinician U navailable [place] WOOD MILLING MACHINE OPERATOR, Lou Attending Clinician UnavailKAMLESH Rogers Attending Clinician Unavailable SHARATH SENDIL K.HKeri Attending Clinician Unavaila justin Soares MD, Jerome Attending Clinician [phone] BRIAN ISRAEL Attending Clinician Unavailable BRIAN ISRAEL Attending Clinician Unavailable Elsi Christina MD Attending Clinician +[phone] Tacho LOBO, Nehal Attending Clinician +[phone] ELSI CHRISTIAN Attending Clinician Unavailable ELSI CHRISTIAN Attending Clinician Unavailable Sharath EPPS, Jamshid K.H. Attending Clinician +[phone] Lucian LOWE, Talia Stevens Attending Clinician Unavaila justin Gee PA-C, Emili Attending Clinician +[phone] PHILIPPE LARSEN Attending Clinician UnavailPHILIPPE Montalvo Attending Clinician UnavailPhilippe Montalvo MD Attending Clinician [phone] JAYDEN MITCHELL Attending Clinician Unavailable XENIA LOMELI Attending Clinician Unavailable XENIA LOMELI Attending Clinician Unavailable Shahzad Wyatt MD Attending Clinician Abigail Ley RN Attending Clinician Unavailable SHAHZAD PRO Attending Clinician Unavailable Doctor Unassigned, Wells Attending Clinician U navailable Lab, Ang - Db Attending Clinician Unavailable Sofia LOWE, Bridgette Stevens Attending Clinician Unavail able DANIELLA HAWK Attending Clinician Unavailab Daniella Kathleen MD Attending Clinician +[phone] Ivy EPPS, Wale Bhandari Attending Clinician [phone] Nehal Mason Attending Clinician +[phone] STEPH NUR Attending Clinician Unavailable Steph Nur MD Attending Clinician [phone], Adc Lab Attending Clinician Unavailable Sharath EPPS, Jamshid K.H. Attending Clinician +[phone] DAVID LIMA Attending Clinician Unavailable DAVID LIMA Attending Clinician Unavailable Leo LOWE, Simba Shetty Attending Clinician UnavailMICHOACANO Moise Attending Clinician Unavailable MICHOACANO WILKES Attending Clinician Unavailable Michoacano Wilkes DO Attending Clinician +[phone] Harriet EPPS, Erick Attending Clinician +[phone] NEHAL TITUS Attending Clinician Unavailable José Miguel Bedolla MD Attending Clinician [phone] Pranav [facility], Jina A Attending Clinician Unavail able ERICK LARIOS Attending Clinician Unavailable JOSÉ MIGUEL BEDOLLA Attending Clinician Unavailable Prince LOWE, Alda Avalos Attending Clinician Unavailab GERMÁN Mcdaniel Attending Clinician Unavailable Isac COMBS, Tootie Steen Attending Clinician +[phone] Germán Alvarenga DO Attending Clinician +[phone] Jason LOWE, Rodo Ann Attending Clinician Unavail able Ayah EPPS, Mary Attending Clinician +[phone] Dagmar Cooper MD Attending Clinician + [phone] ROEL HOANG Attending Clinician UnavailSAM Rodriguez Attending Clinician Unavailabl Ramírez Muñoz MD Attending Clinician + [phone] Shane EPPS, Sam Delgado Attending Clinician +[phone] Roel Yusuf Attending Clinician +[phone] MARYCARMEN ROJAS Attending Clinician Unavailable Marycarmen Fox Attending Clinician +[phone] MISA CEBALLOS A Attending Clinician Unava CONSTANCE Vigil Attending Clinician Unavailtorres Kelly [facility], Talia Stevens Attending Clinician + [phone] Misa Ceballos DPM Attending Clinician + BLADIMIR FERRARO Attending Clinician Unavailable Patel Betancur MD Attending Clinician +[phone] Nayely Jarvis MD Attending Clinician +[phone] Bladimir Ferraro MD Attending Clinician [phone] Sushil Persaud MD Attending Clinician +[phone] Jovany Bronson DO Attending Clinician [phone] Jason Mckinney MD Attending Clinician +[phone] Anene STOCK TRADER, Les Attending Clinician +[phone] GUSTAVO LES Attending Clinician Unavailable Romanyao DO Srinihollie Attending Clinician +[phone] Wilson OUTSIDE SALESMAN, Pavithra K Attending Clinician Unavail able Rosalee EPPS, Philippe L Attending Clinician [phone] GARY MCKAY Attending Clinician Linda Stone MD, Constance Attending Clinician +- [phone] Gary Schwartz Attending Clinician +[phone] QUINN_R Attending Clinician Unavailable Armand Ball Attending Clinician [phone] APOLLO REESE Attending Clinician Unavailable Dylan EPPS, Randi Chiu Attending Clinician +[phone] Apollo Reese MD Attending Clinician +[phone] Clay Case MD Attending Clinician +[phone] CLAY CASE Attending Clinician Unavailable Simon Nixon PT, Arlet Attending Clinician Un available Manish Mckeon Rahil Attending Clinician Unavail able MONIQUE GALLO Attending Clinician Unavailab Nj Morgan APN Attending Clinician + [phone] Monique Gallo MD Attending Clinician + [phone] Natalio Vigil MD Attending Clinician [phone] NATALIO VIGIL Attending Clinician Unavailable See Fish MD Attending Clinician +[phone] Guzman EPPS, Lilly Attending Clinician +[phone] ASYA WALSH Attending Clinician Unavailab CHUCHO Menendez Attending Clinician UnavailJacquelyn Mckeon RN Attending Clinician +[phone] Bartolome Haley MD Attending Clinician [phone] Sangita LOBO, Gavin Avalos Attending Clinician + [phone] CHUCHO DEL REAL JR Attending Clinician Unavaila ble [facility] Attending Clinician Unavailable Only, Adc Test Attending Clinician Unavailable Mindi HEARN, Lisa Ramos Attending Clinician [phone] Ochoa Escamilla MD Attending Clinician , Adc Vascular Room 1 - Attending Clinician Un available Stephen EPPS, Jayden Attending Clinician +[phone] Dara Golden MD Attending Clinician [phone] Admitting Clinician Unavailable SHAHZAD PRO Admitting Clinician Unavailable STEPH NUR Admitting Clinician Unavailable GERMÁN ALVARENGA Admitting Clinician Unavailable Germán Alvarenga DO Admitting Clinician +[phone] JEROME SOARES Admitting Clinician Unavailable SAM MEREDITH Admitting Clinician UnavailSam Rodriguez MD Admitting Clinician +[phone] JAMSHID EARLY Admitting Clinician Unavaila BLADIMIR Allen Admitting Clinician Unavailable Bladimir Ferraro MD Admitting Clinician +[phone] ERICKSON_R Admitting Clinician Unavailable APOLLO REESE Admitting Clinician Unavailable Apollo Reese MD Admitting Clinician +[phone] Manish Mckeon Rahil Admitting Clinician Unavail able MONIQUE GALLO Admitting Clinician Unavailab Monique Stevens MD Admitting Clinician +[phone] LILLY HINDS Admitting Clinician Unavailable Lilly Hinds MD Admitting Clinician +[phone] Payers Payer Name Policy Type Policy Number Effective Date Expirati on Date Source MEDICARE PART A AND B [id number] 2011 00:00:00 [facility] [id number] [facility] [id number] MEDICARE PART A \\T\\ B [id number] 2011 00:00:00 [employer] [id number] 2011 00:00:00 [place]: [employer] [id number] 2011 00:00:00 [employer] [id number] 2011 00:00:00 Problems Condition Name Condition Details Condition Category Status Onset Date Resolution Date Last Treatment Date Treating Clinician Comments Source Open wound of left heel, initial encounter Open wound of left heel, initial encounter Disease Active 2023-07 0-28 00:00: 00 [facility] Acute pain of left knee Acute pain of left knee Disease Active 2023-07 0-01 00:00: 00 [facility] Lymphedema of both lower extremitie s Lymphedema of both lower extremitie s Disease Active 2023-07 0-01 00:00: 00 [facility] Acute pulmonary edema Acute pulmonary edema Disease Active 7-15 00:00: 00 [facility] Cardiomega ly Cardiomega ly Disease Active 7-15 00:00: 00 [facility] Ankle wound, right, sequela Ankle wound, right, sequela Disease Active 2022-07 2-04 00:00: 00 [facility] Obesity (BMI 30-39.9) Obesity (BMI 30-39.9) Disease Active 2022-07 0-16 00:00: 00 [facility] PAF (paroxysma l atrial fibrillati on) PAF (paroxysma l atrial fibrillati on) Disease Active 2022-07 0-11 00:00: 00 [facility] Acute on chronic diastolic congestive heart failure Acute on chronic diastolic congestive heart failure Disease Active 2022-07 0-10 00:00: 00 [facility] Peripheral arterial disease Peripheral arterial disease Disease Active 9-07 00:00: 00 [facility] Peripheral vascular disease Peripheral vascular disease Disease Active 9-07 00:00: 00 [facility] At risk for falls At risk for falls Disease Active 9-05 00:00: 00 [facility] Unspecifie d abnormalit ies of gait and mobility Unspecifie d abnormalit ies of gait and mobility Disease Active 9-05 00:00: 00 [facility] Controlled substance agreement signed Controlled substance agreement signed Disease Active 9-05 00:00: 00 [facility] Chronic diastolic congestive heart failure Chronic diastolic congestive heart failure Disease Active 8-21 00:00: 00 [facility] Pulmonary hypertensi on Pulmonary hypertensi on Disease Active 8-21 00:00: 00 [facility] Lethargy Lethargy Disease Active 8-20 00:00: 00 [facility] Troponin I above reference range Troponin I above reference range Disease Active 2021-07 2-30 00:00: 00 [facility] UTI (urinary tract infection) UTI (urinary tract infection) Disease Active 2021-07 2-26 00:00: 00 [facility] Acute on chronic diastolic heart failure Acute on chronic diastolic heart failure Disease Active 2021-07 2-25 00:00: 00 [facility] Elevated brain natriureti c peptide (BNP) level Elevated brain natriureti c peptide (BNP) level Disease Active 2021-07 2-25 00:00: 00 [facility] Elevated brain natriureti c peptide (BNP) level Elevated brain natriureti c peptide (BNP) level Disease Active 2021-07 2-25 00:00: 00 [facility] Vomiting Vomiting Disease Active 2021-07 2-24 00:00: 00 [facility] Morbid obesity Morbid obesity Disease Active 8- 00:00: 00 [facility] CHAD (obstructi ve sleep apnea) CHAD (obstructi ve sleep apnea) Disease Active 8- 00:00: 00 [facility] Sepsis Sepsis Disease Active 8- 00:00: 00 [facility] Hypertensi ve emergency Hypertensi ve emergency Disease Active 8-11 00:00: 00 [facility] Acute bilateral venous stasis dermatitis Acute bilateral venous stasis dermatitis Disease Active 8-05 00:00: 00 [facility] Pneumonia due to infectious organism Pneumonia due to infectious organism Disease Active 8-05 00:00: 00 [facility] Positive blood culture Positive blood culture Disease Active 8-05 00:00: 00 [facility] Acute respirator y failure with hypoxia Acute respirator y failure with hypoxia Disease Active 2022-0 8-05 00:00: 00 [facility] Bilateral pleural effusion Bilateral pleural effusion Disease Active 0 8-05 00:00: 00 [facility] Pneumonia due to infectious organism Pneumonia due to infectious organism Disease Active 8-05 00:00: 00 [facility] Acute diastolic heart failure Acute diastolic heart failure Disease Active 8-05 00:00: 00 [facility] Acute bilateral venous stasis dermatitis Acute bilateral venous stasis dermatitis Disease Active 8 00:00: 00 [facility] Acute renal insufficie ncy Acute renal insufficie ncy Disease Active 01-29 00:00: 00 [facility] Chronic constipati on Chronic constipati on Disease Active 01-29 00:00: 00 [facility] Diarrhea Diarrhea Disease Active 01-29 00:00: 00 [facility] Hypovolemi c shock Hypovolemi c shock Disease Active 01-29 00:00: 00 [facility] Edema of right lower leg Edema of right lower leg Disease Active 2-14 00:00: 00 [facility] Mixed hyperlipid emia Mixed Hyperlipid emia Problem Active 07-30 00:00: 00 [facility] Cellulitis of right lower leg Cellulitis of right lower leg Disease Active 07-14 00:00: 00 [facility] Chronic hypokalemi a Chronic Hypokalemi a Problem Active 2020-07 00:00: 00 [facility] Anemia Anemia Problem Active 2020-07 00:00: 00 [facility] Stasis dermatitis Stasis Dermatitis Problem Active 2020-07 00:00: 00 [facility] Lymphedema of lower extremity Lymphedema of Lower Extremity Problem Active 2020-07 00:00: 00 [facility] Cardiac arrhythmia Cardiac Arrhythmia Problem Active 2020-07 0 00:00: 00 [facility] Body mass index 30+ - obesity Body Mass Index 30+ - Obesity Problem Active 7-13 00:00: 00 [facility] VTE (venous thromboemb olism) VTE (venous thromboemb olism) Disease Active 01-10 00:00: 00 [facility] PAD (periphera l artery disease) PAD (periphera l artery disease) Disease Active 01-10 00:00: 00 [facility] Chronic deep vein thrombosis (DVT) of femoral vein of right lower extremity Chronic deep vein thrombosis (DVT) of femoral vein of right lower extremity Disease Active 01-10 00:00: 00 [facility] Class 3 severe obesity due to excess calories in adult, unspecifie d BMI, unspecifie d whether serious comorbidit y present Class 3 severe obesity due to excess calories in adult, unspecifie d BMI, unspecifie d whether serious comorbidit y present Disease Active 01-10 00:00: 00 [facility] Restless legs Restless Legs Problem Active 5-27 00:00: 00 [facility] Chronic upper back pain Chronic upper back pain Disease Active 4-29 00:00: 00 [facility] Chronic pain syndrome Chronic Pain Syndrome Problem Active 4-29 00:00: 00 [facility] Pruritus of skin Pruritus of Skin Problem Active 4-29 00:00: 00 [facility] Hypokalemi a Hypokalemi a Problem Active 4-08 00:00: 00 [facility] Carpal tunnel syndrome Carpal Tunnel Syndrome Problem Active 4-08 00:00: 00 [facility] Respirator y tract congestion and cough Respirator y Tract Congestion and Cough Problem Active 3-09 00:00: 00 [facility] Gastroesop hageal reflux disease Gastroesop hageal Reflux Disease Problem Active 2- 00:00: 00 [facility] Peripheral vascular disease Peripheral Vascular Disease Problem Active 114 00:00: 00 [facility] 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 Varicose Veins of the Leg with Ulcer and Eczema Problem Active 14 00:00: 00 [place] [facility] Musculoske letal instabilit y Musculoske letal Instabilit y Problem Active 2019-07 00:00: 00 [facility] History of fracture History of Fracture Problem Active 2019-07 00:00: 00 [facility] [place] History of fall History of Fall Problem Active 2019-07 00:00: 00 [facility] Difficulty walking Difficulty Walking Problem Active 2019-07 00:00: 00 [place] Peripheral neuropathy due to type 2 diabetes mellitus Peripheral Neuropathy Due to Type 2 Diabetes Mellitus Problem Active 2019-07 0 00:00: 00 [place] [facility] Cellulitis and abscess of right lower extremity Cellulitis and abscess of right lower extremity Disease Active 03-18 00:00: 00 [facility] Chronic kidney disease stage 3 Chronic Kidney Disease Stage 3 Problem Active 03-14 00:00: 00 [facility] Hypothyroi dism Hypothyroi dism Problem Active 03-13 00:00: 00 [place] [facility] Diabetes mellitus Diabetes Mellitus Problem Active 03-13 00:00: 00 [facility] Iron deficiency anemia Iron Deficiency Anemia Problem Active 03-13 00:00: 00 [facility] Neuropathy Neuropathy Problem Active 03-13 00:00: 00 [facility] Glaucoma Glaucoma Problem Active 03-13 00:00: 00 [place] [facility] Hypertensi ve disorder Hypertensi ve Disorder Problem Active 03-13 00:00: 00 [facility] Deep venous thrombosis Deep Venous Thrombosis Problem Active 03-13 00:00: 00 [facility] Lymphedema Lymphedema Problem Active 9- 00:00: 00 [facility] Cellulitis Cellulitis Problem Active 9 00:00: 00 [facility] Memory impairment Memory Impairment Problem Active 9- 00:00: 00 [facility] Secondary restless legs syndrome Secondary Restless Legs Syndrome Problem Active 03-13 00:00: 00 [facility] History of transient ischemic attack History of transient ischemic attack Disease Active 8-06 00:00: 00 [facility] Cellulitis of unspecifie d part of limb Cellulitis of unspecifie d part of limb Disease Active 108 00:00: 00 [facility] Allergic rhinitis, unspecifie d Allergic rhinitis, unspecifie d Disease Active 2018-07 00:00: 00 [facility] Chronic atrial fibrillati on, unspecifie d Chronic atrial fibrillati on, unspecifie d Disease Active 2018-07 00:00: 00 [facility] Gastroesop hageal reflux disease without esophagiti s Gastroesop hageal reflux disease without esophagiti s Disease Active 2018-07 00:00: 00 [facility] Iron deficiency anemia Iron deficiency anemia Disease Active 2018-07 00:00: 00 [facility] Localized edema Localized edema Disease Active 2018-07 00:00: 00 [facility] Age-relate d physical debility Age-relate d physical debility Disease Active 2018-07 00:00: 00 [facility] Lymphedema , not elsewhere classified Lymphedema , not elsewhere classified Disease Active 2018-07 00:00: 00 [facility] Chronic venous hypertensi on (idiopathi c) with inflammati on of bilateral lower extremity Chronic venous hypertensi on (idiopathi c) with inflammati on of bilateral lower extremity Disease Active 2018-07 00:00: 00 [facility] Bacteremia Bacteremia Disease Active 2018-07 00:00: 00 [facility] Chronic venous hypertensi on (idiopathi c) with inflammati on of bilateral lower extremity Chronic venous hypertensi on (idiopathi c) with inflammati on of bilateral lower extremity Disease Active 2018-07 00:00: 00 [facility] Fluid overload, unspecifie d Fluid overload, unspecifie d Disease Active 2018-07 00:00: 00 [facility] 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 Disease Active 2018-07 00:00: 00 [facility] Cellulitis of right leg Cellulitis of right leg Disease Active 2018-07 0 00:00: 00 [facility] Excessive daytime sleepiness Excessive daytime sleepiness Disease Active 07-05 00:00: 00 [facility] Displaced bimalleola r fracture Displaced bimalleola r fracture Disease Active 2016-07 00:00: 00 [facility] Fracture of calcaneus Fracture of calcaneus Disease Active 2016-07 00:00: 00 [facility] Controlled type 2 diabetes mellitus without complicati on, with long-term current use of insulin Controlled type 2 diabetes mellitus without complicati on, with long-term current use of insulin Disease Active 11-13 00:00: 00 [facility] Controlled type 2 diabetes mellitus without complicati on, with long-term current use of insulin Controlled type 2 diabetes mellitus without complicati on, with long-term current use of insulin Disease Active 11-13 00:00: 00 [facility] Essential hypertensi on Essential hypertensi on Disease Active 2014-07 00:00: 00 [facility] Hyperlipid emia Hyperlipid emia Disease Active 2014-07 00:00: 00 [facility] Hypothyroi dism (acquired) Hypothyroi dism (acquired) Disease Active 2014-07 00:00: 00 [facility] Hypothyroi dism, unspecifie d type Hypothyroi dism, unspecifie d type Disease Active 2015-1 2-24 00:00: 00 [facility] Allergies, Adverse Reactions, Alerts Allergy Name Allergy Type Status Severity Reaction(s) Onset Date Inactive Date Treating Clinician Comments Source MEPERIDI NE DRUG INGREDI Active Unknown-Cmnt 2023-07 00:00: 00 [facility] Meperidi ne Drug Allergy Active Unknown - See comments 2023-07 00:00: 00 [facility] LISINOPR IL DRUG INGREDI Active Dizziness 2021-07 00:00: 00 [facility] Lisinopr il Propensi ty to adverse reaction s Active Other - See comments 2021-07 00:00: 00 Patient had low blood pressure, elevated Cr per patient [facility] LOSARTAN DRUG INGREDI Active COUGH 2021-07 00:00: 00 [facility] Losartan Propensi ty to adverse reaction s Active Cough 2021-07 00:00: 00 [facility] CODEINE DRUG INGREDI Active Hallucinates 2020-0 5-04 00:00: 00 [facility] Clindamy molly Drug Allergy Active Rash 2020-0 5-04 00:00: 00 [facility] CLINDAMY MOLLY DRUG INGREDI Active Rash 2020-0 5-04 00:00: 00 [facility] Codeine Drug Allergy Active Dizziness 2020-0 5-04 00:00: 00 [facility] SULFA (SULFONA MIDE ANTIBIOT ICS) Drug Class Active N/V -06 00:00: 00 [facility] Sulfa (Sulfona mide Antibiot ics) Propensi ty to adverse reaction s Active Nausea and/or Vomiting - 00:00: 00 Per [facility] aide, at rehab, tolerated fine with bendryl [facility] ERYTHROM YCIN DRUG Active Hives 0 9-11 00:00: 00 [facility] METFORMI N DRUG INGREDI Active Hallucinates 0 9-11 00:00: 00 [facility] Erythrom ycin Propensi ty to adverse reaction s Active Itching 2020-0 9-11 00:00: 00 [facility] Metformi n Propensi ty to adverse reaction s Active Hallucinatio ns 2019-0 9-11 00:00: 00 "FREAKED OUT" FLOOR & CEILING MET, ROOM SPUIN [facility] ADHESIVE TAPE-MANDEEP ICONES DRUG Active Rash 2019-0 2-14 00:00: 00 [facility] Adhesive Tape-Mandeep icones Drug Allergy Active Rash 0 2-14 00:00: 00 [facility] CIPROFLO XACIN DRUG INGREDI Active ITCHING 2017-07 0 00:00: 00 [facility] METRONID AZOLE DRUG INGREDI Active Unknown-Cmnt 2017-07 0 00:00: 00 [facility] Ciproflo xacin Propensi ty to adverse reaction s Active Itching 2017-07 00:00: 00 [facility] Metronid azole Propensi ty to adverse reaction s Active Unknown - See comments 2017-07 00:00: 00 [facility] LOSARTAN POTASSIU M DRUG INGREDI Active High SOB 2017-0 03-22 00:00: 00 [facility] Losartan Potassiu m Propensi ty to adverse reaction s Active Cough 2017-0 03-22 00:00: 00 [facility] PENTOXIF YLLINE DRUG INGREDI Active ITCHING 20170 15 00:00: 00 [facility] Pentoxif ylline Propensi ty to adverse reaction s Active Shortness of Breath 0 15 00:00: 00 [facility] MACROLID E ANTIBIOT ICS Drug Class Active Low Rash 2014-07 00:00: 00 [facility] PENICILL IN DRUG INGREDI Active Rash 2014-07 00:00: 00 [facility] Macrolid e Antibiot ics Drug Allergy Active Other - See comments 2014-07 00:00: 00 [facility] Penicill in Propensi ty to adverse reaction s Active Rash 2014-07 00:00: 00 [facility] Macrolid e Antibiot ics Drug Allergy Active Other - See comments 2014-07 00:00: 00 [facility] Macrolid e Antibiot ics Propensi ty to adverse reaction s Active Rash 2014-07 00:00: 00 [facility] Metformi n Allergy to substanc e Active Moderate to severe Hallucinatio ns [facility] Cipro Allergy to substanc e Active Mild Chest pain [facility] Clindamy molly Allergy to substanc e Active Rash [facility] Losartan Allergy to substanc e Active Cough [facility] MACROLID E ANTIBIOT ICS Allergy to substanc e Active Chest pain [facility] PENICILL INS Allergy to substanc e Active [facility] Pentoxif ylline Allergy to substanc e Active Chest pain [facility] SULFA (SULFONA MIDE ANTIBIOT ICS) Allergy to substanc e Active Moderate to severe Vomiting [facility] Social History Social Habit Start Date Stop Date Quantity Comments Source History SDOH Alcohol Std Drinks [facility] History SDOH Alcohol Binge [facility] History SDOH Social Connections Get Together [facility] History SDOH Social Connections Synagogue [facility] History SDOH Social Connections Membership [facility] History SDOH Social Connections Meetings [facility] Gender identity [facility] of tobacco use Cigarette Smoker [facility] ASSERTION Not [facility] History of Social function 2024-04-03 00:00:00 2024-04-03 00:00:00 [facility] Alcohol intake 2023-10-30 00:00:00 2023-10-30 00:00:00 0 /d [facility] Exposure to SARS-CoV-2 (event) 2022-09-18 00:00:00 2022-09-28 10:27:00 Not sure [facility] History SDOH Alcohol Frequency 2022-06-28 00:00:00 2022-06-28 00:00:00 1 [facility] History SDOH Social Connections Phone 2022-06-28 00:00:00 2022-06-28 00:00:00 1 [facility] History SDOH Social Connections Living 2022-06-28 00:00:00 2022-06-28 00:00:00 7 [facility] History SDOH Physical Activity DPW 2022-06-28 00:00:00 2022-06-28 00:00:00 7 [facility] History SDOH Physical Activity MPS 2022-06-28 00:00:00 2022-06-28 00:00:00 2 [facility] History SDOH Financial 2022-06-28 00:00:00 2022-06-28 00:00:00 5 [facility] History SDOH Food Worry 2022-06-28 00:00:00 2022-06-28 00:00:00 1 [facility] History SDOH Food Scarcity 2022-06-28 00:00:00 2022-06-28 00:00:00 1 [facility] History SDOH Transport Med 2022-06-28 00:00:00 2022-06-28 00:00:00 2 [facility] History SDOH Transport Non-Med 2022-06-28 00:00:00 2022-06-28 00:00:00 2 [facility] Tobacco Comment 2022-01-29 00:00:00 2022-01-29 00:00:00 exposed to 2nd hand smoke [facility] Education 2019-04-11 00:00:00 2019-04-11 00:00:00 21 [facility] Alcoholic beverage intake 2018-03-22 00:00:00 2018-03-22 00:00:00 0 /d [facility] Tobacco use and exposure 2017-08-03 00:00:00 2017-08-03 00:00:00 Smokeless tobacco non-user [facility] Sex assigned at 1945 00:00:00 1945 00:00:00 [facility] Smoking Status Start Date Stop Date Source Never Smoker [facility] Medications Ordered Medication Name Filled Medication Name Start Date Stop Date Current Medication? Ordering Clinician Indication Dosage Frequency Signature (SIG) Comments Components Source TRAZODONE 50 mg tablet 3-13 00:00: 00 Yes [id number] 50mg TAKE ONE (1) TABLET(S) BY MOUTH AT BEDTIME. [facility] glipiZIDE 2.5 mg Tab 2-24 00:00: 00 Yes TAKE ONE (1) TABLET BY MOUTH ONCE DAILY. [facility] insulin degludec 100 unit/mL (3 mL) InPn 18 00:00: 00 Yes [id number] Inject 32 units under the skin once every morning [facility] escitalopra m oxalate 10 mg tablet 211 00:00: 00 Yes [id number] 10mg TAKE ONE (1) TABLET(S) BY MOUTH EVERY MORNING. [facility] baclofen 10 mg tablet 07-30 00:00: 00 Yes [id number] TAKE ONE (1) TABLET(S) BY MOUTH THREE TIMES A DAY NEEDED FOR PAIN. [facility] PRAVASTATIN 80 mg tablet 1-16 00:00: 00 Yes [id number] 80mg TAKE ONE (1) TABLET(S) BY MOUTH AT BEDTIME. [facility] clopidogreL 75 mg tablet 1-07 00:00: 00 Yes [id number] 75mg TAKE ONE (1) TABLET(S) BY MOUTH EVERY MORNING. [facility] TRESIBA FLEXTOUCH U-100 100 unit/mL (3 mL) In 2023-07 00:00: 00 08-21 00:00 :00 No [id number] INJECT 32 UNITS UNDER THE SKIN ONCE EVERY MORNING. [facility] BACLOFEN 10 mg tablet 2023-0724 00:00: 00 07-30 00:00 :00 No [id number] TAKE ONE (1) TABLET(S) BY MOUTH THREE TIMES A DAY NEEDED FOR PAIN. [facility] METOPROLOL TARTRATE 25 mg tablet 2023-0717 00:00: 00 Yes [id number] 12.5mg TAKE ONE-HALF (1/2) TABLET(S) BY MOUTH TWICE A DAY. [facility] pravastatin 80 mg tablet 2023-07-16 00:00: 00 Yes [id number] 80mg TAKE ONE (1) TABLET(S) BY MOUTH AT BEDTIME. [facility] CLOPIDOGREL 75 mg tablet 2023-07 00:00: 00 07-10 00:00 :00 No [id number] TAKE ONE (1) TABLET(S) BY MOUTH ONCE A DAY IN THE MORNING. [facility] LEVOTHYROXI NE 25 mcg tablet 2023-07 00:00: 00 Yes [id number] 25ug TAKE ONE (1) TABLET(S) BY MOUTH EVERY MORNING. [facility] PANTOPRAZOL E 40 mg EC tablet 2023-07 00:00: 00 Yes [id number] 40mg TAKE ONE (1) TABLET(S) BY MOUTH EVERY MORNING. [facility] BACLOFEN 10 mg tablet 2023-07 00:00: 00 06-26 00:00 :00 No [id number] TAKE ONE (1) TABLET(S) BY MOUTH THREE TIMES A DAY NEEDED FOR PAIN. [facility] ELIQUIS 5 mg tablet 2023-07 00:00: 00 Yes [id number] TAKE ONE (1) TABLET(S) BY MOUTH EVERY MORNING AND EVENING. [facility] spironolact one 25 mg tablet 2023-07 00:00: 00 Yes [id number] TAKE ONE (1) TABLET(S) BY MOUTH IN THE MORNING. [facility] CLOPIDOGREL 75 mg tablet 2023-07 00:00: 00 06-08 00:00 :00 No [id number] TAKE ONE (1) TABLET(S) BY MOUTH ONCE A DAY IN THE MORNING. [facility] cephALEXin 500 mg capsule 2023-07 00:00: 00 05-08 05:59 :00 No [id number] 500mg Take 1 capsule by mouth 4 (four) times daily for 7 days. [facility] furosemide 40 mg tablet 2023-07 00:00: 00 Yes [id number] TAKE ONE (1) TABLET BY MOUTH EVERY MORNING AND EVENING. [facility] baclofen 10 mg tablet 2023-07 0-24 00:00: 00 05-28 00:00 :00 No [id number] TAKE ONE (1) TABLET(S) BY MOUTH THREE TIMES A DAY NEEDED FOR PAIN. [facility] Blood-Gluco se Sensor (FREESTYLE KANDI 3 SENSOR) Leigh Ann 2023-07 0-17 00:00: 00 Yes [id number] Use 3 times daily to check blood sugar, switch after 14 days [facility] Blood-Gluco se Meter,Ruth nuous (FREESTYLE KANDI 3 READER) Misc 2023-07 017 00:00: 00 Yes [id number] Use 3 times daily to check blood sugar [facility] CLOPIDOGREL 75 mg tablet 18 00:00: 00 05-09 00:00 :00 No [id number] TAKE ONE (1) TABLET(S) BY MOUTH ONCE A DAY IN THE MORNING. [facility] PRAVASTATIN 80 mg tablet 17 00:00: 00 06-18 00:00 :00 No [id number] 80mg TAKE ONE (1) TABLET(S) BY MOUTH AT BEDTIME. [facility] methocarbam oL 750 mg tablet 8-29 00:00: 00 05-10 00:00 :00 No TAKE ONE (1) TABLET(S) BY MOUTH EVERY EIGHT HOURS NEEDED FOR MUSCLE SORENESS. [facility] BACLOFEN 10 mg tablet 8-23 00:00: 00 04-26 00:00 :00 No [id number] TAKE ONE (1) TABLET(S) BY MOUTH THREE TIMES A DAY NEEDED FOR RESTLESS LEGS PAIN. [facility] CLOPIDOGREL 75 mg tablet 8-15 00:00: 00 03-21 00:00 :00 No [id number] TAKE ONE (1) TABLET(S) BY MOUTH IN THE MORNING. [facility] TRESIBA FLEXTOUCH U-100 100 unit/mL (3 mL) InPn 8-09 00:00: 00 06-28 00:00 :00 No [id number] INJECT 32 UNITS UNDER THE SKIN ONCE EVERY MORNING. [facility] traMADoL 50 mg tablet 01-30 00:00: 00 Yes [id number] 50mg Take 1 tablet by mouth every 6 (six) hours as needed for Pain (scale 4-6). Indication s: chronic pain [facility] pregabalin 50 mg capsule 01-30 00:00: 00 Yes [id number] TAKE ONE (1) CAPSULE(S) BY MOUTH EVERY NIGHT AT BEDTIME. [facility] nystatin 100,000 unit/gram powder 01-30 00:00: 00 05-10 00:00 :00 No [id number] Apply to area(s) 3 (three) times daily as needed for Rash. [facility] furosemide 40 mg tablet 01-30 00:00: 00 04-27 00:00 :00 No [id number] TAKE ONE (1) TABLET BY MOUTH EVERY MORNING AND EVENING. [facility] hydralAZINE (APRESOLINE ) injection 10 mg 01-16 00:15: 00 01-16 00:28 :00 No 10mg 10 mg, Slow IV Push, ONCE, 1 dose, On Tue01/16/24 at 1915, GI [facility] furosemide (LASIX) injection 40 mg 01-16 00:15: 00 01-16 00:28 :00 No 40mg 40 mg, IV Push, ONCE, 1 dose, On Tue01/16/24 at 1915, GI [facility] sodium chloride (NS) injection 5 mL 01-15 21:16: 36 Yes 5mL 5 mL, Intravenou s, PRN, Starting on Tue01/16/24 at 1616, Until Discontinu ed, Routine, IV line flushing [facility] clopidogreL (PLAVIX) 75 mg tablet 01-12 00:00: 00 2024- 08-15 00:00 :00 No [id number] 75mg Take 1 tablet by mouth in the morning. [facility] hydrOXYzine 25 mg tablet 12-26 00:00: 00 Yes [id number] 25mg Take 1 tablet by mouth at bedtime. [facility] nystatin 100,000 unit/gram cream 12-26 00:00: 00 04-03 00:00 :00 No [id number] Apply to area(s) 2 (two) times daily. [facility] cefpodoxime 100 mg tablet 12-26 00:00: 00 04-03 00:00 :00 No [id number] 100mg Take 1 tablet by mouth in the morning and 1 tablet in the evening. [facility] pramipexole 0.75 mg tablet 12-21 00:00: 00 Yes [id number] .75mg TAKE ONE (1) TABLET(S) BY MOUTH AT BEDTIME. [facility] PRAVASTATIN 80 mg tablet 12-21 00:00: 00 03-20 00:00 :00 No [id number] 80mg TAKE ONE (1) TABLET(S) BY MOUTH AT BEDTIME. [facility] baclofen 10 mg tablet 12-21 00:00: 00 02-23 00:00 :00 No [id number] 10mg Take 1 tablet by mouth 3 (three) times daily as needed for Pain (scale 4-6) (for restless legs, may make you sleepy). [facility] insulin aspart U-100 100 unit/mL (3 mL) injection 12-08 00:00: 00 Yes [id number] INJECT THREE TIMES DAILY BEFORE MEALS 12 UNITS AT BREAKFAST, 14 UNITS AT LUNCH, AND 14 UNITS AT SUPPER. IF GLUCOSE > 150, SLIDING SCALE UTILIZED. [facility] METOPROLOL TARTRATE 25 mg tablet 12-08 00:00: 00 06-19 00:00 :00 No [id number] TAKE ONE-HALF (1/2) TABLET(S) BY MOUTH TWICE A DAY (MORNING AND EVENING). [facility] ondansetron 4 mg disintegrat ing tablet 11-20 00:00: 00 Yes [id number] 4mg Take 1 tablet by mouth every 8 (eight) hours as needed for Nausea and Vomiting (N/V). [facility] cephALEXin 500 mg capsule 11-20 00:00: 00 12-26 00:00 :00 No [id number] 500mg Take 1 capsule by mouth in the morning and 1 capsule in the evening. [facility] levothyroxi ne 25 mcg tablet 11-10 11:21: 47 11-10 00:00 :00 No 25ug Take 1 tablet by mouth every morning. [facility] pravastatin 40 mg tablet 11-10 11:04: 59 Yes 40mg Take 1 tablet by mouth at bedtime. [facility] pravastatin 40 mg tablet 11-10 11:04: 59 05-10 00:00 :00 No 40mg Take 1 tablet by mouth at bedtime. [facility] semaglutide (OZEMPIC) 2 mg/dose (8 mg/3 mL) PnIj 11-10 00:00: 00 05-10 00:00 :00 No [id number] Inject 2mg under skin weekly DX E11.65 REFILLS CAN BE ADDRESSED AT FOLLOW UP APPT 11/22/23 [facility] benzonatate 100 mg capsule 11-10 00:00: 00 04-03 00:00 :00 No [id number] TAKE ONE (1) OR TWO (2) CAPSULE(S) BY MOUTH EVERY EIGHT HOURS NEEDED FOR COUGH. [facility] traMADoL 50 mg tablet 11-10 00:00: 00 01-30 00:00 :00 No [id number] 50mg Take 1 tablet by mouth every 6 (six) hours as needed for Pain (scale 4-6). Indication s: chronic pain [facility] nystatin 100,000 unit/gram powder 11-10 00:00: 00 01-30 00:00 :00 No [id number] Apply to area(s) 3 (three) times daily as needed for Rash. [facility] INSULIN ASPART U-100 100 unit/mL (3 mL) injection 10-31 00:00: 00 12-08 00:00 :00 No [id number] INJECT THREE TIMES DAILY BEFORE MEALS 12 UNITS AT BREAKFAST, 14 UNITS AT LUNCH, AND 14 UNITS AT SUPPER. IF GLUCOSE > 150, SLIDING SCALE UTILIZED. [facility] semaglutide (OZEMPIC) 2 mg/dose (8 mg/3 mL) PnIj 10-31 00:00: 00 11-10 00:00 :00 No Inject 2mg under skin weekly DX E11.65 REFILLS CAN BE ADDRESSED AT FOLLOW UP APPT 11/22/23 [facility] traMADoL (ULTRAM) tablet 50 mg 10-29 20:23: 00 10-29 21:09 :00 No 50mg 50 mg, Oral, ONCE, 1 dose, On 10/30/23 at 1530, GI [facility] pregabalin 50 mg capsule 10-26 00:00: 00 01-30 00:00 :00 No [id number] TAKE ONE (1) CAPSULE(S) BY MOUTH EVERY NIGHT AT BEDTIME. [facility] semaglutide (OZEMPIC) 2 mg/dose (8 mg/3 mL) PnIj 10-26 00:00: 00 10-31 00:00 :00 No REFILLS CAN BE ADDRESSED AT FOLLOW UP APPT 11/22/23 [facility] TRESIBA FLEXTOUCH U-100 100 unit/mL (3 mL) InPn 09-27 00:00: 00 02-09 00:00 :00 No [id number] INJECT 32 UNITS UNDER THE SKIN ONCE EVERY MORNING. [facility] pravastatin 80 mg tablet 09-22 00:00: 00 12-21 00:00 :00 No [id number] 80mg TAKE ONE (1) TABLET(S) BY MOUTH AT BEDTIME. [facility] pravastatin 40 mg tablet 09-20 10:41: 24 Yes 40mg Take 1 tablet by mouth at bedtime. [facility] empaglifloz in (JARDIANCE) 10 mg tablet 09-20 00:00: 00 05-10 00:00 :00 No [id number] 10mg Take 1 tablet by mouth in the morning. [facility] spironolact one 25 mg tablet 09-20 00:00: 00 05-09 00:00 :00 No [id number] 25mg Take 1 tablet by mouth in the morning. [facility] insulin aspart U-100 (NOVOLOG FLEXPEN U-100 INSULIN) 100 unit/mL (3 mL) injection 09-04 00:00: 00 10-31 00:00 :00 No [id number] INJECT THREE TIMES DAILY BEFORE MEALS 12 UNITS AT BREAKFAST, 14 UNITS AT LUNCH, AND 14 UNITS AT SUPPER. IF GLUCOSE > 150, SLIDING SCALE UTILIZED. [facility] ESCITALOPRA M OXALATE 10 mg tablet 08-22 00:00: 00 08-14 00:00 :00 No [id number] 10mg TAKE ONE (1) TABLET(S) BY MOUTH EVERY MORNING. [facility] TRAZODONE 50 mg tablet 16 00:00: 00 Yes [id number] 50mg TAKE ONE (1) TABLET(S) BY MOUTH AT BEDTIME. [facility] pravastatin 40 mg tablet 07-13 08:40: 08 Yes 40mg Take 1 tablet by mouth at bedtime. [facility] levothyroxi ne 25 mcg tablet 07-13 08:40: 08 Yes 25ug Take 1 tablet by mouth every morning. [facility] ammonium lactate 12 % cream 07-13 08:40: 08 Yes APPLY TO AFFECTED AREA TWICE A DAY [facility] latanoprost , PF, 0.005 % Drop 07-13 08:40: 08 Yes 1[drp] Place 1 Drop in both eyes at bedtime. [facility] latanoprost , PF, 0.005 % Drop 07-13 08:40: 08 Yes 1[drp] Place 1 Drop in both eyes at bedtime. [facility] polyethylen e glycol 3350 (MIRALAX) 17 gram/dose powder 07-13 08:40: 08 Yes 17g Take 17 g by mouth in the morning. [facility] montelukast 10 mg tablet 07-13 08:40: 08 05-10 00:00 :00 No 10mg Take 1 tablet by mouth at bedtime. [facility] hydrocortis one 1 % cream 07-13 08:40: 08 05-10 00:00 :00 No hydrocorti sone 1 % topical cream APPLY TO AFFECTED AREA 3 TIMES A DAY NEEDED FOR ITCHING [facility] pantoprazol e 40 mg EC tablet 07-13 08:40: 08 03-12 00:00 :00 No 40mg Take 1 tablet by mouth in the morning. [facility] clotrimazol e 1 % topical cream 07-13 08:40: 08 12-26 00:00 :00 No Use as directed [facility] nystatin 100,000 unit/gram powder 07-12 00:00: 00 11-10 00:00 :00 No [id number] APPLY TO AFFECTED AREA THREE TIMES A DAY NEEDED FOR RASH. [facility] semaglutide (OZEMPIC) 2 mg/dose (8 mg/3 mL) PnIj 07-12 00:00: 00 10-26 00:00 :00 No INJECT TWO (2) MG UNDER THE SKIN ONCE WEEKLY. [facility] traMADoL 100 mg Tab 07-08 14:50: 51 07-08 00:00 :00 No 50mg Take 50 mg by mouth at bedtime. [facility] fluticasone furoate 200 mcg/actuati on DsDv 07-08 14:08: 55 Yes INHALE 1 PUFF BY MOUTH EVERY 24 HOURS [facility] venlafaxine XR 75 mg 24 hr capsule 07-08 14:08: 55 05-10 00:00 :00 No 75mg Take 1 capsule by mouth in the morning. [facility] fluticasone propionate 50 mcg/actuati on nasal spray 07-08 14:08: 55 05-10 00:00 :00 No 2{spray } Use 2 Sprays in each nostril once daily as needed. [facility] fluticasone furoate 200 mcg/actuati on DsDv 07-08 14:08: 55 05-10 00:00 :00 No INHALE 1 PUFF BY MOUTH EVERY 24 HOURS [facility] diphenhydrA MINE (BANOPHEN) 25 mg capsule 07-08 14:08: 55 04-03 00:00 :00 No 25mg Take 1 capsule by mouth every 6 (six) hours as needed. [facility] albuterol (VENTOLIN HFA) 90 mcg/actuati on inhaler 07-08 14:08: 04-03 00:00 :00 No INHALE 2 PUFFS EVERY 6 (SIX) HOURS IF NEEDED FOR WHEEZING OR SHORTNESS OF BREATH FOR UP TO 10 DAYS [facility] pravastatin 40 mg tablet 07-08 14:06: 22 Yes 40mg Take 1 tablet by mouth at bedtime. [facility] pantoprazol e 40 mg EC tablet 07-08 14:06: 22 Yes 40mg Take 1 tablet by mouth in the morning. [facility] montelukast 10 mg tablet 07-08 14:06: 22 Yes 10mg Take 1 tablet by mouth at bedtime. [facility] levothyroxi ne 25 mcg tablet 07-08 14:06: 22 Yes 25ug Take 1 tablet by mouth every morning. [facility] hydrocortis one 1 % cream 07-08 14:06: 22 Yes hydrocorti sone 1 % topical cream APPLY TO AFFECTED AREA 3 TIMES A DAY NEEDED FOR ITCHING [facility] clotrimazol e 1 % topical cream 07-08 14:06: 22 Yes Use as directed [facility] ammonium lactate 12 % cream 07-08 14:06: 22 Yes APPLY TO AFFECTED AREA TWICE A DAY [facility] latanoprost , PF, 0.005 % Drop 07-08 14:06: 22 Yes 1[drp] Place 1 Drop in both eyes at bedtime. [facility] polyethylen e glycol 3350 (MIRALAX) 17 gram/dose powder 07-08 14:06: 22 Yes 17g Take 17 g by mouth in the morning. [facility] hydrOXYzine 25 mg tablet 07-08 00:00: 00 12-26 00:00 :00 No [id number] 25mg Take 1 tablet by mouth every 12 (twelve) hours as needed for Itching. [facility] traMADoL 50 mg tablet 07-08 00:00: 00 11-10 00:00 :00 No [id number] 50mg Take 1 tablet by mouth every 6 (six) hours as needed for Pain (scale 4-6). Indication s: chronic pain [facility] furosemide 40 mg tablet 2022-07 00:00: 00 01-30 00:00 :00 No [id number] 20mg Take 0.5 tablets by mouth every morning and evening. [facility] pregabalin 50 mg capsule 2022-07 00:00: 00 10-26 00:00 :00 No [id number] TAKE ONE (1) CAPSULE(S) BY MOUTH AT BEDTIME. [facility] potassium chloride 20 mEq tablet 2022-07 19:44: 40 06-22 00:00 :00 No 20meq Take 1 tablet by mouth in the morning. [facility] potassium chloride 20 mEq tablet 2022-07 10:32: 30 Yes 20meq Take 1 tablet by mouth in the morning. [facility] midodrine 5 mg tablet 2022-07 2-20 10:32: 20 06-22 00:00 :00 No TAKE 1 TABLET BY MOUTH 3 (THREE) TIMES DAILY FOR 90 DAYS. [facility] midodrine 5 mg tablet 2022-07 10:32: 06-22 00:00 :00 No TAKE 1 TABLET BY MOUTH 3 (THREE) TIMES DAILY FOR 90 DAYS. [facility] dapaglifloz in propanediol (FARXIGA) 10 mg tablet 2022-07 10:31: 57 06-22 00:00 :00 No 10mg Take 1 tablet by mouth in the morning. [facility] dapaglifloz in propanediol (FARXIGA) 10 mg tablet 2022-07 10:31: 57 06-22 00:00 :00 No 10mg Take 1 tablet by mouth in the morning. [facility] aspirin 81 mg chewable tablet 2022-07 10:31: 47 06-22 00:00 :00 No Chew 1 tablet every day by oral route. [facility] aspirin 81 mg chewable tablet 2022-07 10:31: 47 06-22 00:00 :00 No Chew 1 tablet every day by oral route. [facility] metOLazone 5 mg tablet 2022-07 10:31: 06-22 00:00 :00 No TAKE 1 TABLET BY MOUTH EVERY 3RD DAY [facility] metOLazone 5 mg tablet 2022-07 10:31: 25 06-22 00:00 :00 No TAKE 1 TABLET BY MOUTH EVERY 3RD DAY [facility] NIFEdipine XL 60 mg 24 hr tablet 2022-07 10:31: 04 06-22 00:00 :00 No 60mg Take 1 tablet by mouth in the morning. [facility] pravastatin 40 mg tablet 2022-07 10:30: 06 Yes 40mg Take 1 tablet by mouth at bedtime. [facility] potassium chloride 20 mEq tablet 2023-1 2-20 00:00: 00 Yes 20meq Take 1 tablet by mouth every Tuesday, Tuesday and Tuesday. [facility] omeprazole 40 mg capsule 2022-07 08:33: 38 06-06 00:00 :00 No 40mg Take 1 capsule by mouth every morning. [facility] insulin aspart U-100 100 unit/mL (3 mL) injection 2022-07 08:08: 06 06-06 00:00 :00 No inject under the skin 3 (three) times daily before meals. [facility] pravastatin 40 mg tablet 2022-07 08:08: 04 Yes 40mg Take 1 tablet by mouth at bedtime. [facility] potassium chloride 20 mEq tablet 2022-07 08:08: 04 Yes 20meq Take 1 tablet by mouth in the morning. [facility] pantoprazol e 40 mg EC tablet 2022-07 08:08: 04 Yes 40mg Take 1 tablet by mouth in the morning. [facility] NIFEdipine XL 60 mg 24 hr tablet 2022-07 08:08: 04 Yes 60mg Take 1 tablet by mouth in the morning. [facility] montelukast 10 mg tablet 2022-07 08:08: 04 Yes 10mg Take 1 tablet by mouth at bedtime. [facility] midodrine 5 mg tablet 2022-07 08:08: 04 Yes TAKE 1 TABLET BY MOUTH 3 (THREE) TIMES DAILY FOR 90 DAYS. [facility] metOLazone 5 mg tablet 2022-07 08:08: 04 Yes TAKE 1 TABLET BY MOUTH EVERY 3RD DAY [facility] levothyroxi ne 25 mcg tablet 2022-07 08:08: 04 Yes 25ug Take 1 tablet by mouth every morning. [facility] hydrocortis one 1 % cream 2022-07 08:08: 04 Yes hydrocorti sone 1 % topical cream APPLY TO AFFECTED AREA 3 TIMES A DAY NEEDED FOR ITCHING [facility] fluticasone propionate 50 mcg/actuati on nasal spray 2022-07 08:08: 04 Yes 2{spray } Use 2 Sprays in each nostril once daily as needed. [facility] fluticasone furoate 200 mcg/actuati on DsDv 2022-07 08:08: 04 Yes INHALE 1 PUFF BY MOUTH EVERY 24 HOURS [facility] diphenhydrA MINE (BANOPHEN) 25 mg capsule 2022-07 08:08: 04 Yes 25mg Take 1 capsule by mouth every 6 (six) hours as needed. [facility] dapaglifloz in propanediol (FARXIGA) 10 mg tablet 2022-07 08:08: 04 Yes 10mg Take 1 tablet by mouth in the morning. [facility] clotrimazol e 1 % topical cream 2022-07 08:08: 04 Yes Use as directed [facility] aspirin 81 mg chewable tablet 2022-07 08:08: 04 Yes Chew 1 tablet every day by oral route. [facility] ammonium lactate 12 % cream 2022-07 08:08: 04 Yes APPLY TO AFFECTED AREA TWICE A DAY [facility] albuterol (VENTOLIN HFA) 90 mcg/actuati on inhaler 2022-07 08:08: 04 Yes INHALE 2 PUFFS EVERY 6 (SIX) HOURS IF NEEDED FOR WHEEZING OR SHORTNESS OF BREATH FOR UP TO 10 DAYS [facility] latanoprost , PF, 0.005 % Drop 2022-07 08:08: 04 Yes 1[drp] Place 1 Drop in both eyes at bedtime. [facility] polyethylen e glycol 3350 (MIRALAX) 17 gram/dose powder 2022-07 08:08: 04 Yes 17g Take 17 g by mouth in the morning. [facility] fluticasone furoate 200 mcg/actuati on DsDv 2022-07 08:08: 04 Yes INHALE 1 PUFF BY MOUTH EVERY 24 HOURS [facility] venlafaxine XR 75 mg 24 hr capsule 2022-07 08:08: 03 Yes 75mg Take 1 capsule by mouth in the morning. [facility] blood sugar diagnostic strip 2022-07 00:00: 00 Yes [id number] Use as directed to monitor blood sugar TID and PRN. [facility] blood sugar diagnostic (ACCU-CHEK PHILLIP PLUS TEST STRP) strip 2022-07 00:00: 00 Yes [id number] 1{strip } Take 1 Strip in the morning and 1 Strip at noon and 1 Strip in the evening. Use as directed [facility] levothyroxi ne 25 mcg tablet 2022-07 00:00: 00 06-01 00:00 :00 No [id number] 25ug Take 1 tablet by mouth every morning. [facility] pantoprazol e 40 mg EC tablet 2022-07 00:00: 00 06-01 00:00 :00 No [id number] 40mg Take 1 tablet by mouth in the morning. [facility] cephALEXin (KEFLEX) 500 mg capsule 2022-07 00:00: 00 06-14 05:59 :00 No [id number] 500mg Take 1 capsule by mouth in the morning and 1 capsule in the evening. Do all this for 7 days. [facility] mupirocin 2 % ointment 2022-07 00:00: 00 06-09 05:59 :00 No [id number] Apply to area(s) 3 (three) times daily for 7 days. [facility] mupirocin 2 % ointment 2022-07 00:00: 00 06-09 05:59 :00 No [id number] Apply to area(s) 3 (three) times daily for 7 days. [facility] empaglifloz in (JARDIANCE) 10 mg 2022-07 00:00: 00 09-20 00:00 :00 No [id number] 10mg Take 1 tablet by mouth in the morning. [facility] insulin degludec 100 unit/mL Soln 2022-07 00:00: 00 09-27 00:00 :00 No [id number] 32U inject 32 Units under the skin in the morning. [facility] degludec (TRESIBA FLEXTOUCH U-100) 100 unit/mL (3 mL) InPn 2022-07 00:00: 00 09-27 00:00 :00 No [id number] 32U inject 32 Units under the skin every morning. [facility] insulin aspart U-100 (NOVOLOG FLEXPEN U-100 INSULIN) 100 unit/mL (3 mL) injection 2022-07 00:00: 00 09-04 00:00 :00 No [id number] TIDAC - 12 units at breakfast, 14 units at lunch, and 14 units at supper. If glucose > 150, sliding scale utilized. [facility] clopidogreL (PLAVIX) 75 mg tablet 2022-07 00:00: 00 01-11 00:00 :00 No [id number] 75mg Take 1 tablet by mouth in the morning. [facility] insulin aspart U-100 100 unit/mL (3 mL) injection 2022-07 14:32: 26 Yes inject under the skin 3 (three) times daily before meals. [facility] traMADoL 100 mg Tab 2022-07 14:32: 26 Yes 50mg Take 50 mg by mouth at bedtime. [facility] semaglutide (OZEMPIC) 1 mg/dose (4 mg/3 mL) PnIj 2022-07 00:00: 00 10-26 00:00 :00 No [id number] 1mg inject 1 mg under the skin weekly. [facility] insulin aspart U-100 100 unit/mL (3 mL) injection 2022-07 11:25: 15 Yes inject under the skin 3 (three) times daily before meals. [facility] traMADoL 100 mg Tab 2022-07 11:25: 15 Yes 50mg Take 50 mg by mouth at bedtime. [facility] levothyroxi ne 25 mcg tablet 2022-07 00:00: 00 05-21 05:59 :00 No [id number] 25ug Take 1 tablet by mouth every morning for 30 days. [facility] pantoprazol e 40 mg EC tablet 2022-07 00:00: 00 05-21 05:59 :00 No [id number] 40mg Take 1 tablet by mouth in the morning for 30 days. [facility] polyethylen e glycol 3350 17 gram powder 2022-07 00:00: 00 05-21 05:59 :00 No [id number] 17g Take 1 Packet by mouth in the morning for 30 days. [facility] spironolact one 25 mg tablet 2022-07 00:00: 00 05-21 05:59 :00 No [id number] 25mg Take 1 tablet by mouth in the morning for 30 days. [facility] KCL 20 mEq tablet 2022-07 00:00: 00 05-21 05:59 :00 No [id number] 20meq Take 1 tablet by mouth in the morning for 30 days. [facility] empaglifloz in (JARDIANCE) tablet 10 mg 2022-07 [...] meet the criteria for inpatient ordering? Yes [facility] insulin aspart U-100 100 unit/mL (3 mL) injection 2022-07 18:35: 41 Yes inject under the skin 3 (three) times daily before meals. [facility] traMADoL 100 mg Tab 2022-07 18:35: 41 Yes 50mg Take 50 mg by mouth at bedtime. [facility] acetaminoph en (TYLENOL) 325 mg Cap 2022-07 14:28: 08 04-19 00:00 :00 No Take by mouth as needed. [facility] ACCU-CHEK PHILLIP PLUS TEST STRP strip 2022-07 00:00: 00 06-06 00:00 :00 No USE TO TEST 3 TIMES DAILY. [facility] acetaminoph en 325 mg tablet 2022-07 00:00: 00 05-20 05:59 :00 No [id number] 650mg Take 2 tablets by mouth every 6 (six) hours as needed for Pain (scale 1-3) for up to 30 days. [facility] baclofen 10 mg tablet 2022-07 00:00: 00 05-20 05:59 :00 No [id number] 5mg Take 0.5 tablets by mouth 2 (two) times daily as needed for Pain (scale 7-10) for up to 30 days. [facility] pravastatin 80 mg tablet 2022-07 00:00: 00 05-20 05:59 :00 No [id number] 80mg Take 1 tablet by mouth at bedtime for 30 days. [facility] empaglifloz in 10 mg 2022-07 00:00: 00 05-20 05:59 :00 No [id number] 10mg Take 1 tablet by mouth in the morning for 30 days. [facility] nystatin (NYSTOP) 100,000 unit/gram powder 2022-07 00:00: 00 05-05 04:59 :00 No [id number] Apply to area(s) 2 (two) times daily for 30 doses. [facility] cloNIDine (CATAPRES) tablet 0.3 mg 2022-07 10:45: 00 04-18 09:54 :00 No .3mg 0.3 mg, Oral, ONCE, 1 dose, On 04/18/23 at 0545, Routine [facility] pravastatin (PRAVACHOL) tablet 80 mg 2022-0716 02:00: 00 Yes 80mg 80 mg, Oral, QHS, First dose on 04/17/23 at 2100, Until Discontinu ed, Routine [facility] traMADoL (ULTRAM) tablet 50 mg 2022-07 19:03: 19 Yes 50mg 50 mg, Oral, Q6HPRN, Starting on 04/17/23 at 1403, Until Discontinu ed, Routine, Pain (scale 4-6), leg pain [facility] hydralAZINE (APRESOLINE ) injection 10 mg 2022-07 19:02: 48 Yes 10mg 10 mg, Slow IV Push, Q6HPRN, Starting on 04/17/23 at 1402, Until Discontinu ed, STAT, DBP=>100; SBP=>160 [facility] KCL (KLOR-CON M20) tablet 20 mEq 2022-07 14:00: 00 Yes 20meq 20 mEq, Oral, DAILY, First dose on 04/17/23 at 0900, Until Discontinu ed, [facility] hydralAZINE (APRESOLINE ) injection 5 mg 2022-07 16:28: 19 04-17 19:03 :41 No 5mg 5 mg, Slow IV Push, Q6HPRN, Starting on 04/16/23 at 1128, Until [place] 04/17/23 at 1403, STAT, DBP=>100; SBP=>160 [facility] KCL (KLOR-CON M20) tablet 40 mEq 2022-07 16:00: 00 04-16 17:44 :00 No 40meq 40 mEq, Oral, ONCE, 1 dose, On 04/16/23 at 1100, Routine [facility] insulin glargine (LANTUS U-100) injection 20 Units 2022-07 02:00: 00 Yes 20U 20 Units, Subcutaneo us, QHS, First dose (after last modificati on) on Tue04/15/23 at 2100, Until Discontinu ed, Routine [facility] furosemide (LASIX) injection 20 mg 2022-07 01:00: 00 Yes 20mg 20 mg, Slow IV Push, Q12H, First dose on Tue04/15/23 at 2000, Until Discontinu ed, Routine [facility] metoclopram cory HCl (REGLAN) injection 10 mg 2022-07 17:30: 00 Yes 10mg 10 mg, Slow IV Push, Q6HPRN, Starting on Tue04/14/23 at 1230, Until Discontinu ed, Routine, Nausea and Vomiting (N/V) [facility] furosemide (LASIX) tablet 20 mg 2022-07 17:30: 00 04-16 00:34 :17 No 20mg 20 mg, Oral, QAM+PM, First dose on Tue04/14/23 at 1230, Until Discontinu ed, Routine [facility] levothyroxi ne (SYNTHROID) tablet 25 mcg 2022-07 11:00: 00 Yes 25ug 25 mcg, Oral, QAM-0600, First dose on Tue04/14/23 at 0600, Until Discontinu ed, Routine [facility] pramipexole (MIRAPEX) tablet 0.75 mg 2022-07 06:00: 00 Yes .75mg 0.75 mg, Oral, QHS, First dose (after last modificati on) on Tue04/14/23 at 0100, Until Discontinu ed, Routine [facility] traZODone (DESYREL) tablet 50 mg 2022-07 02:00: 00 Yes 50mg 50 mg, Oral, QHS, First dose on Tue04/13/23 at 2100, Until Discontinu ed, Routine [facility] traMADoL (ULTRAM) tablet 50 mg 2022-07 02:00: 00 Yes 50mg 50 mg, Oral, QHS, First dose on Tue04/13/23 at 2100, Until Discontinu ed [facility] insulin glargine (LANTUS U-100) injection 30 Units 2022-07 02:00: 00 04-16 00:36 :09 No 30U 30 Units, Subcutaneo us, QHS, First dose on Tue04/13/23 at 2100, Until Discontinu ed, Routine [facility] cefTRIAXone (ROCEPHIN) 1,000 mg in NaCl 0.9% (NS) 100 mL MINI-BAG 2022-07 01:15: 00 04-19 01:44 :00 No 1000mg 1,000 mg, IV Piggyback, Q24H ABX, 6 doses, First dose on Tue04/13/23 at 2014, Last dose on Tue04/18/23 at 2014, Administer over 30 Minutes, 100 mL
Reas on for Anti-Infec tive: Documented Infection< br>Documen steph Infection Site: Urine
D uration of Therapy: 7 days [facility] apixaban (ELIQUIS) tablet 5 mg 2022-07 01:00: 00 Yes [id number] 5mg 5 mg, Oral, BID, First dose on Tue04/13/23 at 2000, Until Discontinu ed, Routine
Indicatio ns: Non-Valvul ar Atrial Fibrillati on [facility] metoclopram cory HCl (REGLAN) injection 10 mg 2022-07 00:00: 00 04-14 17:18 :00 No 10mg 10 mg, Slow IV Push, Q6H, First dose on Tue04/13/23 at 1900, Until Discontinu ed, Routine [facility] proMETHazin e (PHENERGAN) 25 mg in NaCl 0.9% (NS) 50 mL IV piggyback 2022-07 19:42: 05 04-13 23:56 :36 No 25mg 25 mg, IV Piggyback, Q6HPRN, Starting on Tue04/13/23 at 1442, Until Tue04/13/23 at 1856, Routine, Nausea and Vomiting (N/V) [facility] Sliding Scale Insulin - Lispro (HumaLOG) 2022-07 17:00: 00 Yes Subcutaneo us, TID MEALS+HS, First dose on Tue04/13/23 at 1200, Until Discontinu ed, Routine [facility] vancomycin (VANCOCIN) 1,500 mg in NaCl 0.9% [...] Soft Tissue
Duration of Therapy: 7 days [facility] glucagon (GLUCAGEN DIAGNOSTIC KIT) injection 1 mg 2022-07 14:02: 11 Yes 1mg 1 mg, Intramuscu lar, PRN, Starting on Tue04/13/23 at 0902, Until Discontinu ed, GI, Blood Glucose < or = 70 mg/dL and patient is NPO, unable to swallow or has mental changes. [facility] dextrose 50 % in water (D50W) injection 25 mL 2022-07 14:02: 11 Yes 25mL 25 mL, Slow IV Push, PRN, Starting on Tue04/13/23 at 0902, Until Discontinu ed, GI, Blood Glucose < or = 70 mg/dL and patient is NPO, unable to swallow or has mental status changes. [facility] spironolact one (ALDACTONE) tablet 25 mg 2022-07 14:00: 00 Yes 25mg 25 mg, Oral, DAILY, First dose on Tue04/13/23 at 0900, Until Discontinu ed, Routine [facility] polyethylen e glycol 3350 powder 17 g 2022-07 14:00: 00 Yes 17g 17 g, Oral, DAILY, First dose on Tue04/13/23 at 0900, Until Discontinu ed, Routine [facility] pantoprazol e (PROTONIX) EC tablet 40 mg 2022-07 14:00: 00 Yes 40mg 40 mg, Oral, DAILY, First dose on Tue04/13/23 at 0900, Until Discontinu ed, Routine [facility] escitalopra m oxalate (LEXAPRO) tablet 10 mg 2022-07 14:00: 00 Yes 10mg 10 mg, Oral, DAILY, First dose on Tue04/13/23 at 0900, Until Discontinu ed, Routine [facility] clopidogreL (PLAVIX) 75 mg tablet 75 mg 2022-07 14:00: 00 Yes 75mg 75 mg, Oral, DAILY, First dose on Tue04/13/23 at 0900, Until Discontinu ed, Routine [facility] baclofen (LIORESAL) tablet 5 mg 2022-07 14:00: 00 Yes 5mg 5 mg, Oral, Q12H, First dose on Tue04/13/23 at 0900, Until Discontinu ed, Routine [facility] furosemide (LASIX) tablet 40 mg 2022-07 14:00: 00 04-14 00:11 :24 No 40mg 40 mg, Oral, QAM+PM, First dose on Tue04/13/23 at 0900, Until Discontinu ed, Routine [facility] ondansetron (ZOFRAN (PF)) injection 4 mg 2022-07 13:45: 00 04-13 12:53 :00 No 4mg 4 mg, Slow IV Push, ONCE, On Tue04/13/23 at 0845, For 1 dose
Do ses of ondansetro n 16 mg and above need to be administer ed via IV piggyback. For Dose >=24mg ECG monitoring is advisable.
[facility] pregabalin (LYRICA) capsule 50 mg 2022-07 13:00: 00 Yes 50mg 50 mg, Oral, BID, First dose on Tue04/13/23 at 0800, Until Discontinu ed, Routine [facility] nystatin (NYSTOP) powder 2022-07 13:00: 00 Yes Topical, BID, First dose on Tue04/13/23 at 0800, Until Discontinu ed, Routine [facility] metoprolol tartrate (LOPRESSOR) tablet 12.5 mg 2022-07 13:00: 00 Yes 12.5mg 12.5 mg, Oral, BID, First dose on Tue04/13/23 at 0800, Until Discontinu ed, Routine [facility] FENTanyl PF (SUBLIMAZE (PF)) injection 12.5 mcg 2022-07 09:14: 51 Yes 12.5ug 12.5 mcg, Slow IV Push, Q6HPRN, Starting on Tue04/13/23 at 0414, Until Discontinu ed, Routine, Pain (scale 4-6), Pain (scale 7-10) [facility] acetaminoph en (TYLENOL) 325 mg Cap 2022-07 07:50: 16 Yes Take by mouth as needed. [facility] insulin aspart U-100 100 unit/mL (3 mL) injection 2022-07 07:50: 16 Yes inject under the skin 3 (three) times daily before meals. [facility] traMADoL 100 mg Tab 2022-07 07:50: 16 Yes 50mg Take 50 mg by mouth at bedtime. [facility] heparin (porcine) injection 5,000 Units 2022-07 03:00: 00 04-13 12:50 :00 No 5000U 5,000 Units, Subcutaneo us, Q8H, First dose on Tue04/12/23 at 2200, Until Discontinu ed, Routine [facility] acetaminoph en (TYLENOL) tablet 650 mg 2022-07 00:36: 27 Yes 650mg 650 mg, Oral, Q6HPRN, Starting on Tue04/12/23 at 1936, Until Discontinu ed, Routine, Pain (scale 1-3) [facility] furosemide (LASIX) injection 20 mg 2022-07 00:15: 00 04-13 00:29 :00 No 20mg 20 mg, IV Push, ONCE, 1 dose, On Tue04/12/23 at 1915, GI [facility] furosemide (LASIX) injection 20 mg 2022-07 00:00: 00 04-13 00:06 :00 No 20mg 20 mg, IV Push, ONCE, 1 dose, On Tue04/12/23 at 1900, GI [facility] acetaminoph en (TYLENOL) tablet 1,000 mg 2022-07 23:00: 00 04-13 00:06 :00 No 1000mg 1,000 mg, Oral, ONCE, 1 dose, On Tue04/12/23 at 1800, GI [facility] cefTRIAXone (ROCEPHIN) 1,000 mg in NaCl 0.9% (NS) 100 mL MINI-BAG 2022-07 22:15: 00 04-12 23:42 :00 No 1000mg 1,000 mg, IV Piggyback, ONCE, 1 dose, On Tue04/12/23 at 1715, Administer over 30 Minutes, 100 mL
Reas on for Anti-Infec tive: Empiric Therapy for Suspected Infection< br>Empiric Therapy Site: Urine
D uration of therapy: 72 hours [facility] NaCl 0.9% (NS) bolus infusion 500 mL 2022-07 21:45: 00 04-12 23:42 :00 No 500mL at 999 mL/hr, 500 mL, IV Infusion, ONCE, 1 dose, On Tue04/12/23 at 1645, STAT [facility] latanoprost (XALATAN) 0.005 % ophthalmic drops 2022-07 21:02: 01 04-12 00:00 :00 No 1[drp] Place 1 Drop in both eyes every evening. [facility] ramipriL 2.5 mg capsule 2022-07 00:00: 00 06-22 00:00 :00 No 2.5mg Take 1 capsule by mouth in the morning. [facility] valsartan (DIOVAN) tablet 40 mg 03-29 01:00: 00 Yes 40mg 40 mg, Oral, BID, First dose (after last modificati on) on Tue03/28/23 at 2000, Until Discontinu ed, Routine [facility] clopidogreL 75 mg tablet 03-29 00:00: 00 04-19 00:00 :00 No [id number] 75mg Take 1 tablet by mouth in the morning. [facility] carvediloL (COREG) tablet 6.25 mg 03-28 22:00: 00 Yes 6.25mg 6.25 mg, Oral, BID MEALS, First dose on Tue03/28/23 at 1700, Until Discontinu ed, Routine [facility] latanoprost (XALATAN) 0.005 % ophthalmic drops 03-28 14:22: 53 Yes 1[drp] Place 1 Drop in both eyes every evening. [facility] acetaminoph en (TYLENOL) 325 mg Cap 03-28 14:22: 53 Yes Take by mouth as needed. [facility] furosemide (LASIX) tablet 40 mg 03-28 14:00: 00 Yes 40mg 40 mg, Oral, QAM+PM, First dose (after last modificati on) on Tue03/28/23 at 0900, Until Discontinu ed, Routine [facility] valsartan (DIOVAN) tablet 20 mg 03-28 14:00: 00 03-28 15:52 :50 No 20mg 20 mg, Oral, BID, First dose on Tue03/28/23 at 0900, Until Discontinu ed, Routine [facility] oxymetazoli ne (OXYMETAZOL INE HCL) 0.05 % nasal spray 1 [place] 03-28 13:00: 00 03-30 12:59 :00 No 1{spray } [address] [place], Nasal, BID, 4 doses, First dose on Tue03/28/23 at 0800, Last dose on Tue03/29/23 at 2000, Routine [facility] metoprolol tartrate (LOPRESSOR) tablet 12.5 mg 03-28 12:00: 00 03-28 15:49 :19 No 12.5mg 12.5 mg, Oral, BID, First dose on Tue03/28/23 at 0700, Until Discontinu ed, Routine [facility] aspirin (ASPIRIN LOW DOSE) 81 mg EC tablet 03-28 11:45: 42 03-28 00:00 :00 No 81mg Take 1 tablet by mouth in the morning. [facility] traMADoL 50 mg tablet 03-28 00:00: 00 04-05 04:59 :00 No [id number] 50mg Take 1 tablet by mouth every 6 (six) hours as needed for Pain (scale 7-10) for up to 7 days. Indication s: acute pain [facility] apixaban (ELIQUIS) tablet 5 mg 03-27 19:15: 00 Yes 5mg 5 mg, Oral, BID, First dose on 03/27/23 at 1415, Until Discontinu ed, Routine
Indicatio ns: DVT/PE [facility] acetaminoph en (TYLENOL) tablet 650 mg 03-27 13:05: 12 Yes 650mg 650 mg, Oral, Q6HPRN, Starting on 03/27/23 at 0805, Until Discontinu ed, Routine, Pain (scale 1-3) [facility] glycopyrrol ate (ROBINUL) injection 0.2 mg 03-26 19:07: 05 Yes .2mg 0.2 mg, Slow IV Push, Q15MIN PRN, Starting on 03/26/23 at 1407, Until Discontinu ed, Routine, if patient is symptomati c (headache / dizziness / diaphoreti c) and bradycardi a HR <40 for more than 2 min [facility] ipratropium -albuteroL (DUONEB) 0.5 mg-3 mg(2.5 mg base)/3 mL nebulizer solution 3 mL 03-26 17:00: 00 Yes 3mL 3 mL, Inhalation , QID, First dose on 03/26/23 at 1200, Until Discontinu ed, Routine [facility] guaiFENesin (FENESIN IR) tablet 400 mg 03-26 17:00: 00 Yes 400mg 400 mg, Oral, Q4H, First dose on 03/26/23 at 1200, Until Discontinu ed, Routine [facility] acetylcyste ine (MUCOMYST) 200 mg/mL (20 %) inhalation solution 200 mg 03-26 17:00: 00 03-30 16:59 :00 No 1mL 200 mg (1 mL), Inhalation , QID, 16 doses, First dose on Tue03/26/23 at 1200, Last dose on Tue03/30/23 at 0800, Routine [facility] loratadine (CLARITIN) tablet 10 mg 03-26 16:15: 00 Yes 10mg 10 mg, Oral, DAILY, First dose on Tue03/26/23 at 1115, Until Discontinu ed, Routine [facility] albuterol (VENTOLIN HFA) 90 mcg/actuati on inhaler 03-26 14:55: 38 Yes 2{puff} INHALE 2 PUFFS EVERY 6 (SIX) HOURS IF NEEDED FOR WHEEZING OR SHORTNESS OF BREATH FOR UP TO 10 DAYS [facility] clopidogreL (PLAVIX) 75 mg tablet 75 mg 03-26 14:00: 00 Yes 75mg 75 mg, Oral, DAILY, First dose on Tue03/26/23 at 0900, Until Discontinu ed, Routine [facility] spironolact one (ALDACTONE) tablet 25 mg 03-26 14:00: 00 Yes 25mg 25 mg, Oral, DAILY, First dose (after last modificati on) on Tue03/26/23 at 0900, Until Discontinu ed, Routine [facility] furosemide (LASIX) tablet 40 mg 03-26 14:00: 00 03-27 11:50 :26 No 40mg 40 mg, Oral, QAM+PM, First dose on Tue03/26/23 at 0900, Until Discontinu ed, Routine [facility] atropine injection 1 mg 03-26 07:05: 00 03-26 07:04 :00 No 1mg 1 mg, IV Push, ONCE, 1 dose, On Tue03/26/23 at 0215, Routine [facility] atropine injection 1 mg 03-26 04:30: 00 03-26 04:22 :00 No 1mg 1 mg, IV Push, ONCE, 1 dose, On Tue03/25/23 at 2330, Routine [facility] FENTanyl PF (SUBLIMAZE (PF)) injection 25 mcg 03-25 22:17: 21 Yes 25ug 25 mcg, Slow IV Push, Q4HPRN, Starting on Tue03/25/23 at 1717, Until Discontinu ed, Routine, Pain (scale 7-10) [facility] lactated ringers IV infusion 500 mL 03-25 21:15: 00 03-25 20:23 :00 No 500mL at 999 mL/hr, 500 mL, Intravenou s, ONCE, 1 dose, On Tue03/25/23 at 1615, Routine [facility] acetaminoph en ADULT (OFIRMEV) injection 1,000 mg 03-25 20:56: 19 03-26 20:55 :19 No 1000mg 1,000 mg, IV Infusion, at 400 mL/hr Administer over 15 Minutes, Q8HPRN, Starting on Tue03/25/23 at 1556, Until 03/26/23 at 1555, Routine, Pain (scale 1-3)
In dication: Perioperat [place] Patient [facility] ondansetron (ZOFRAN (PF)) injection 4 mg 03-25 20:32: 33 Yes 4mg 4 mg, Slow IV Push, Q6HPRN, Nausea and Vomiting (N/V), Starting on Tue03/25/23 at 1532
Do ses of ondansetro n 16 mg and above need to be administer ed via IV piggyback. For Dose >=24mg ECG monitoring is advisable.
[facility] clopidogreL (PLAVIX) 300 mg tablet 300 mg 03-25 19:35: 00 03-25 23:27 :00 No 300mg 300 mg, Oral, ONCE, 1 dose, On Tue03/25/23 at 1445, Routine [facility] sugammadex (BRIDION) injection 03-25 19:27: 00 03-25 19:57 :36 No IV Push, ONCE INTRA PROCEDURE, Starting on Tue03/25/23 at 1427, Until Tue03/25/23 at 1457, Routine, Intra-op [facility] ondansetron (ZOFRAN (PF)) injection 03-25 19:27: 00 03-25 19:57 :36 No Slow IV Push, ONCE INTRA PROCEDURE, Starting on Tue03/25/23 at 1427, Until Tue03/25/23 at 1457, Routine, Intra-op [facility] dexamethaso ne (DECADRON PHOSPHATE) injection 03-25 19:27: 00 03-25 19:57 :36 No IV Push, ONCE INTRA PROCEDURE, Starting on Tue03/25/23 at 1427, Until Tue03/25/23 at 1457, Routine, Intra-op [facility] iodixanoL (VISIPAQUE 270-150 mL) injection 03-25 18:39: 00 03-25 20:07 :46 No PRN, Starting on Tue03/25/23 at 1339, Until Tue03/25/23 at 1507, Routine, Intra-op [facility] heparin 10,000 units in NS 1000 mL for vascular 03-25 18:39: 00 03-25 20:07 :46 No PRN, Starting on Tue03/25/23 at 1339, Intra-op [facility] glycopyrrol ate (ROBINUL) injection 03-25 18:28: 00 03-25 19:57 :36 No Intravenou s, ONCE INTRA PROCEDURE, Starting on Tue03/25/23 at 1328, Until Tue03/25/23 at 1457, Routine, Intra-op [facility] heparin (1,000 unit/mL, 10 mL vial) 03-25 18:23: 00 03-25 19:57 :36 No ONCE INTRA PROCEDURE, Starting on Tue03/25/23 at 1323, Until Tue03/25/23 at 1457, Routine, Intra-op [facility] [facility] esmoloL (BREVIBLOC) injection 03-25 17:50: 00 03-25 19:57 :36 No Slow IV Push, ONCE INTRA PROCEDURE, Starting on Tue03/25/23 at 1250, Until Tue03/25/23 at 1457, Routine, [facility]op [facility] rocuronium (ZEMURON) injection 03-25 17:46: 00 03-25 19:57 :36 No IV Push, ONCE INTRA PROCEDURE, Starting on Tue03/25/23 at 1246, Until Tue03/25/23 at 1457, Routine, Intra-op [facility] propofoL IV infusion 03-25 17:46: 00 03-25 19:57 :36 No IV Infusion, ONCE INTRA PROCEDURE, Starting on Tue03/25/23 at 1246, Until Tue03/25/23 at 1457, Routine, Intra-op [facility] lidocaine 1% (XYLOCAINE) 100 mg/10 mL (1 %) injection 03-25 17:46: 00 03-25 19:57 :36 No Slow IV Push, ONCE INTRA PROCEDURE, Starting on Tue03/25/23 at 1246, Until Tue03/25/23 at 1457, Routine, Intra-op [facility] ePHEDrine 25 mg/5 mL (5 mg/mL) syringe 03-25 17:44: 00 03-25 19:57 :36 No Slow IV Push, ONCE INTRA PROCEDURE, Starting on Tue03/25/23 at 1244, Until Tue03/25/23 at 1457, Routine, Intra-op [facility] lactated ringers IV infusion 03-25 17:35: 00 03-25 19:57 :36 No IV Infusion, CONTINUOUS PRN, Starting on Tue03/25/23 at 1235, Until Tue03/25/23 at 1457, Routine, Intra-op [facility] FENTanyl PF (SUBLIMAZE (PF)) injection 03-25 17:31: 00 03-25 19:57 :36 No Intravenou s, ONCE INTRA PROCEDURE, Starting on Tue03/25/23 at 1231, Until Tue03/25/23 at 1457, Routine, Intra-op [facility] insulin glargine (LANTUS U-100) injection 32 Units 03-25 14:00: 00 Yes 32U 32 Units, Subcutaneo us, DAILY, First dose (after last modificati on) on Tue03/25/23 at 0900, Until Discontinu ed, [facility] hydralAZINE (APRESOLINE ) injection 10 mg 03-25 13:09: 53 Yes 10mg 10 mg, Slow IV Push, Q4HPRN, Starting on Tue03/25/23 at 0809, Until Discontinu ed, DBP=>100; SBP=>160 [facility] KCL (KLOR-CON M20) tablet 20 mEq 03-25 12:30: 00 03-25 12:41 :00 No 20meq 20 mEq, Oral, ONCE, 1 dose, On Tue03/25/23 at 0730, Routine [facility] acetaminoph en (TYLENOL) 325 mg Cap 03-25 12:26: 56 Yes Take by mouth as needed. [facility] valsartan (DIOVAN) tablet 20 mg 03-25 01:00: 00 03-25 01:11 :00 No 20mg 20 mg, Oral, ONCE, 1 dose, On Tue03/24/23 at 2000, Routine [facility] insulin lispro (human) (HumaLOG U-100) injection 5 Units 03-24 22:00: 00 Yes 5U 5 Units, Subcutaneo us, TID MEALS, First dose on Tue03/24/23 at 1700, Until Discontinu ed, Routine [facility] furosemide (LASIX) tablet 40 mg 03-24 22:00: 00 03-24 22:24 :00 No 40mg 40 mg, Oral, ONCE, 1 dose, On Tue03/24/23 at 1700, Routine [facility] heparin 1000 unit/mL injection Soln 5,000 Units 03-24 14:45: 00 03-24 16:10 :00 No 5000U 5,000 Units, IV Push, ONCE, 1 dose, On Devika 03/24/23 at 0945, Routine [facility] heparin 25,000 Units/250 mL in NS 03-24 [...] INITIAL INFUSION RATE.&nbsp ; _ &nb sp;[facility], AND [facility] ONLY &nbs p; - aPTT < [...] 300 units/hr&n bsp; - aPTT 40-49:&nbs p; [place] jw 3000 units, increase rate 200 units/hr&n [...] once therapeuti c levels are reached.<b r> [facility] heparin (1,000 unit/mL, 10 mL vial) 03-24 14:32: 23 03-27 19:11 :02 No 3000U FOR REBOLUSING , Starting on Tue03/24/23 at 0932, Until Tue03/27/23 at 1411, Routine
Dosing based on aPTT testing parameters (refer to continuous heparin drip order)
[facility] insulin glargine (LANTUS U-100) injection 26 Units 03-24 14:00: 00 03-24 19:22 :18 No 26U 26 Units, Subcutaneo us, DAILY, First dose (after last modificati on) on Tue03/24/23 at 0900, Until Discontinu ed, Routine [facility] benzocaine- menthoL (CEPACOL SORE THROAT (JYOTSNA-MEN)) lozenge 1 Lozenge 03-24 02:04: 13 Yes 1{lozen ge} 1 Lozenge, Oral, Q4HPRN, Starting on Tue03/23/23 at 2104, Until Discontinu ed, Routine, Sore throat [facility] valsartan (DIOVAN) tablet 20 mg 03-24 01:00: 00 03-24 19:26 :33 No 20mg 20 mg, Oral, BID, First dose on Tue03/23/23 at 2000, Until Discontinu ed, Routine [facility] Sliding Scale Insulin - Lispro (HumaLOG) 03-23 22:00: 00 Yes Subcutaneo us, TID MEALS+HS, First dose (after last modificati on) on Tue03/23/23 at 1700, Until Discontinu ed, Routine [facility] carvediloL (COREG) tablet 12.5 mg 03-23 22:00: 00 03-26 19:08 :16 No 12.5mg 12.5 mg, Oral, BID MEALS, First dose on Tue03/23/23 at 1700, Until Discontinu ed, Routine [facility] phenoL (SORE THROAT (PHENOL)) 1.4 % spray bottle 1 [place] 03-22 20:03: 05 Yes 1{spray } 1 [place], Oral, PRN, Starting on Tue03/22/23 at 1503, Until Discontinu ed, Routine, Sore throat [facility] methocarbam oL (ROBAXIN) tablet 500 mg 03-22 19:36: 07 03-28 21:22 :55 No 500mg 500 mg, Oral, QIDPRN, Starting on Tue03/22/23 at 1436, Until Tue03/28/23 at 1622, Routine, Muscle Spasms [facility] acetaminoph en (TYLENOL) tablet 650 mg 03-22 19:35: 12 Yes 650mg 650 mg, Oral, Q6HPRN, Starting on Tue03/22/23 at 1435, Until Discontinu ed, Routine, Pain (scale 1-3) [facility] Sliding Scale Insulin - Lispro (HumaLOG) 03-22 17:00: 00 Yes Subcutaneo us, TID MEALS+HS, First dose (after last modificati on) on Tue03/22/23 at 1200, Until Discontinu ed, Routine [facility] acetaminoph en (TYLENOL) 325 mg Cap 03-22 14:07: 39 Yes Take by mouth as needed. [facility] insulin glargine (LANTUS U-100) injection 22 Units 03-22 14:00: 00 Yes 22U 22 Units, Subcutaneo us, DAILY, First dose (after last modificati on) on Tue03/22/23 at 0900, Until Discontinu ed, Routine [facility] spironolact one (ALDACTONE) tablet 25 mg 03-22 14:00: 00 Yes 25mg 25 mg, Oral, DAILY, First dose on Tue03/22/23 at 0900, Until Discontinu ed, Routine [facility] polyethylen e glycol 3350 powder 17 g 03-22 14:00: 00 03-28 21:22 :55 No 17g 17 g, Oral, DAILY, First dose on Tue03/22/23 at 0900, Until Discontinu ed, Routine [facility] pantoprazol e (PROTONIX) EC tablet 40 mg 03-22 14:00: 00 03-28 21:22 :55 No 40mg 40 mg, Oral, DAILY, First dose on Tue03/22/23 at 0900, Until Discontinu ed, Routine [facility] escitalopra m oxalate (LEXAPRO) tablet 10 mg 03-22 14:00: 00 03-28 21:22 :55 No 10mg 10 mg, Oral, DAILY, First dose on Tue03/22/23 at 0900, Until Discontinu ed, Routine [facility] aspirin EC tablet 81 mg 03-22 14:00: 00 03-28 21:22 :55 No 81mg 81 mg, Oral, DAILY, First dose on Tue03/22/23 at 0900, Until Discontinu ed, Routine [facility] furosemide (LASIX) injection 20 mg 03-22 14:00: 00 03-22 15:11 :00 No 20mg 20 mg, Slow IV Push, ONCE, 1 dose, On Tue03/22/23 at 0900, Routine [facility] metoprolol tartrate (LOPRESSOR) tablet 25 mg 03-22 13:15: 00 Yes 25mg 25 mg, Oral, BID, First dose (after last modificati on) on Tue03/22/23 at 0815, Until Discontinu ed, Routine [facility] calcium gluconate 2 g in NaCl 100 mL (ISO-OSM) RTU IV infusion 2 g 03-22 11:30: 00 03-22 11:19 :00 No 2g 2 g, IV Infusion, at 200 mL/hr Administer over 30 Minutes, ONCE, 1 dose, On Tue03/22/23 at 0630, Routine [facility] levothyroxi ne (SYNTHROID) tablet 25 mcg 03-22 11:00: 00 03-28 21:22 :55 No 25ug 25 mcg, Oral, QAM-0600, First dose on Tue03/22/23 at 0600, Until Discontinu ed, Routine [facility] glycopyrrol ate (ROBINUL) injection 0.4 mg 03-22 05:42: 13 Yes .4mg 0.4 mg, Slow IV Push, PRN - SEE INSTRUCTIO NS, Starting on Tue03/22/23 at 0042, Until Discontinu ed, Routine, HR < 45 [facility] glycopyrrol ate (ROBINUL) injection 0.2 mg 03-22 04:00: 23 03-22 05:30 :39 No .2mg 0.2 mg, Slow IV Push, PRN - SEE INSTRUCTIO NS, Starting on Tue03/21/23 at 2300, Until Tue03/22/23 at 0030, Routine, HR < 50 [facility] pravastatin (PRAVACHOL) tablet 80 mg 03-22 02:00: 00 03-28 21:22 :55 No 80mg 80 mg, Oral, QHS, First dose on Tue03/21/23 at 2100, Until Discontinu ed, Routine [facility] pramipexole (MIRAPEX) tablet 0.75 mg 03-22 02:00: 00 03-28 21:22 :55 No .75mg 0.75 mg, Oral, QHS, First dose on Tue03/21/23 at 2100, Until Discontinu ed, Routine [facility] traZODone (DESYREL) tablet 50 mg 03-22 02:00: 00 03-28 21:22 :55 No 50mg 50 mg, Oral, QHS, First dose on Tue03/21/23 at 2100, Until Discontinu ed, Routine [facility] pregabalin (LYRICA) capsule 50 mg 03-22 02:00: 00 03-28 21:22 :55 No 50mg 50 mg, Oral, QHS, First dose on Tue03/21/23 at 2100, Until Discontinu ed, Routine [facility] apixaban (ELIQUIS) tablet 5 mg 03-22 01:00: 00 Yes [id number] 5mg 5 mg, Oral, BID, First dose on Tue03/21/23 at 1999, Until Discontinu ed, Routine
Indicatio ns: DVT/PE [facility] ferrous sulfate tablet 325 mg 03-22 01:00: 00 03-28 21:22 :55 No 325mg 325 mg, Oral, QMON/TUE/ RI AT 1999, First dose on Tue03/21/23 at 1999, Until Discontinu ed, Routine [facility] Sliding Scale Insulin - Lispro (HumaLOG) 03-22 01:00: 00 03-22 12:12 :03 No Subcutaneo us, Q2H, First dose (after last modificati on) on Tue03/21/23 at 1999, Until Discontinu ed, Routine [facility] acetaminoph en ADULT (OFIRMEV) injection 1,000 mg 03-22 01:00: 00 03-22 15:32 :00 No 1000mg 1,000 mg, IV Infusion, at 400 mL/hr Administer over 15 Minutes, Q12H, 2 doses, First dose on Tue03/21/23 at 1999, Last dose on Tue03/22/23 at 0800, Routine
Indicatio n: Perioperat preston Patient [facility] metoprolol tartrate (LOPRESSOR) tablet 12.5 mg 03-22 01:00: 00 03-22 13:13 :52 No 12.5mg 12.5 mg, Oral, BID, First dose on Tue03/21/23 at 1999, Until Discontinu ed, Routine [facility] FENTanyl PF (SUBLIMAZE (PF)) injection 25 mcg 03-21 23:01: 04 03-22 19:36 :17 No 25ug 25 mcg, Slow IV Push, Q30MIN PRN, Starting on Tue03/21/23 at 1801, Until Tue03/22/23 at 1436, Routine, Pain (scale 7-10) [facility] labetaloL (NORMODYNE) injection 10 mg 03-21 22:44: 16 03-28 21:22 :55 No 10mg 10 mg, Slow IV Push, Q15MIN PRN, 4 doses, Starting on Tue03/21/23 at 1744, Until Tue03/28/23 at 1622, Routine, SBP > 160 [facility] furosemide (LASIX) tablet 40 mg 03-21 22:00: 00 Yes 40mg 40 mg, Oral, QAM+PM, First dose on Tue03/21/23 at 1700, Until Discontinu ed, Routine [facility] Sliding Scale Insulin - Lispro (HumaLOG) 03-21 22:00: 00 03-22 00:43 :44 No Subcutaneo us, TID MEALS+HS, First dose on Tue03/21/23 at 1700, Until Discontinu ed, Routine [facility] insulin regular human (HUMULIN R) injection 5 Units 03-21 22:00: 00 03-21 21:20 :00 No 5U 5 Units, IV Push, ONCE, 1 dose, On Tue03/21/23 at 1700, Routine
Indicatio n for insulin: Hyperglyce hermelindo [facility] dextrose 10% (D10W) bolus infusion 250 mL [...] blood glucose is < 80 mg/dL, repeat.
[facility] glucagon (GLUCAGEN DIAGNOSTIC KIT) injection 1 mg 2022-03-21 21:34: 02 03-28 21:22 :55 No 1mg 1 mg, Intramuscu lar, PRN, Starting on Tue03/21/23 at 1634, Until Tue03/28/23 at 1622, GI, Blood Glucose < or = 70 mg/dL and patient is NPO, unable to swallow or has mental changes. [facility] dextrose 10% (D10W) bolus infusion 250 mL [...] blood glucose is < 80 mg/dL, repeat.
[facility] glucagon (GLUCAGEN DIAGNOSTIC KIT) injection 1 mg 03-21 20:48: 37 03-28 21:22 :55 No 1mg 1 mg, Intramuscu lar, PRN, Starting on Tue03/21/23 at 1548, Until Tue03/28/23 at 1622, GI, Blood Glucose < or = 70 mg/dL and patient is NPO, unable to swallow or has mental changes. [facility] glucagon (GLUCAGEN DIAGNOSTIC KIT) injection 1 mg 2022-03-21 20:26: 10 03-28 21:22 :55 No 1mg 1 mg, Intramuscu lar, PRN, Starting on Tue03/21/23 at 1526, Until Tue03/28/23 at 1622, GI, Blood Glucose < or = 70 mg/dL and patient is NPO, unable to swallow or has mental changes. [facility] benzonatate (TESSALON PERLES) capsule 100 mg 03-21 20:24: 06 03-28 21:22 :55 No 100mg 100 mg, Oral, Q8HPRN, Starting on Tue03/21/23 at 1524, Until Tue03/28/23 at 1622, Routine, Cough [facility] lactated ringers IV infusion 1,000 mL 03-21 20:00: 00 03-22 13:47 :44 No 1000mL at 75 mL/hr, 1,000 mL, IV Infusion, CONTINUOUS , Starting on Tue03/21/23 at 1500, Until Tue03/22/23 at 0847, Routine, PACU [facility] proMETHazin e (PHENERGAN) 12.5 mg in NS 50 mL IV piggyback (CNR) 03-21 19:45: 13 Yes 12.5mg 12.5 mg, IV Piggyback, at 200 mL/hr Administer over 15 Minutes, PRN, 1 dose, Starting on Tue03/21/23 at 1445, Until Discontinu ed, Routine, Nausea and Vomiting (N/V), PACU [facility] iodixanoL (VISIPAQUE 270-150 mL) injection 03-21 19:17: 00 03-21 20:43 :02 No PRN, Starting on Tue03/21/23 at 1417, Until Tue03/21/23 at 1543, Routine, Intra-op [facility] sodium chloride 0.9 % irrigation solution 03-21 17:13: 00 03-21 20:43 :02 No PRN, Starting on Tue03/21/23 at 1213, Until Tue03/21/23 at 1543, Intra-op [facility] heparin 10,000 units in NS 1000 mL for vascular 03-21 17:13: 00 03-21 20:43 :02 No PRN, Starting on Tue03/21/23 at 1213, Intra-op [facility] aspirin (ASPIRIN LOW DOSE) 81 mg EC tablet 03-21 15:27: 18 Yes 81mg Take 1 tablet by mouth in the morning. [facility] latanoprost (XALATAN) 0.005 % ophthalmic drops 03-21 15:27: 18 Yes 1[drp] Place 1 Drop in both eyes every evening. [facility] latanoprost (XALATAN) 0.005 % ophthalmic drops 03-10 16:22: 15 Yes 1[drp] Place 1 Drop in both eyes every evening. [facility] aspirin (ASPIRIN LOW DOSE) 81 mg EC tablet 03-08 16:23: 30 Yes 81mg Take 1 tablet by mouth in the morning. [facility] traMADoL 50 mg tablet 03-08 00:00: 00 03-28 00:00 :00 No [id number] TAKE ONE (1) TABLET(S) BY MOUTH EVERY AT BEDTIME NEEDED FOR PAIN. Indication s: chronic pain [facility] PREGABALIN 50 mg capsule 03-02 00:00: 00 06-23 00:00 :00 No [id number] TAKE ONE (1) CAPSULE(S) BY MOUTH AT BEDTIME. [facility] TRAMADOL 50 mg tablet 03-02 00:00: 00 03-08 00:00 :00 No [id number] TAKE ONE (1) TABLET(S) BY MOUTH EVERY SIX HOURS NEEDED FOR PAIN. [facility] traZODone (DESYREL) tablet 50 mg 02-22 02:00: 00 Yes 50mg 50 mg, Oral, QHS, First dose on Tue02/21/23 at 2100, Until Discontinu ed, Routine [facility] melatonin (MELATIN) tablet 3 mg 02-22 02:00: 00 Yes 3mg 3 mg, Oral, QHS, First dose on Tue02/21/23 at 2100, Until Discontinu ed, Routine [facility] ferrous sulfate tablet 325 mg 02-22 01:00: 00 Yes 325mg 325 mg, Oral, QMON/TUE/ RI AT 1999, First dose on Tue02/21/23 at 2000, Until Discontinu ed, Routine [facility] aspirin (ASPIRIN LOW DOSE) 81 mg EC tablet 02-21 19:01: 07 Yes 81mg Take 1 tablet by mouth in the morning. [facility] latanoprost (XALATAN) 0.005 % ophthalmic drops 02-21 19:01: 07 Yes 1[drp] Place 1 Drop in both eyes every evening. [facility] tramadol HCl (TRAMADOL ORAL) 02-21 17:00: 48 02-21 00:00 :00 No Take by mouth. [facility] sulfur hexafluorid e microsphr (LUMASON) injection 5 mL 02-21 16:15: 00 02-21 16:15 :00 No [id number] 5mL 5 mL, Intravenou s, ONCE, 1 dose, On Tue02/21/23 at 1115, Routine
guardian family member approving Restricted medication : JAMSHID EARLY [facility] pantoprazol e (PROTONIX) EC tablet 40 mg 02-21 14:00: 00 Yes 40mg 40 mg, Oral, DAILY, First dose on Tue02/21/23 at 0900, Until Discontinu ed, Routine [facility] insulin glargine (LANTUS U-100) injection 32 Units 02-21 14:00: 00 Yes 32U 32 Units, Subcutaneo us, DAILY, First dose on Tue02/21/23 at 0900, Until Discontinu ed [facility] escitalopra m oxalate (LEXAPRO) tablet 10 mg 02-21 14:00: 00 Yes 10mg 10 mg, Oral, DAILY, First dose on Tue02/21/23 at 0900, Until Discontinu ed, Routine [facility] aspirin EC tablet 81 mg 02-21 14:00: 00 Yes 81mg 81 mg, Oral, DAILY, First dose on Tue02/21/23 at 0900, Until Discontinu ed, Routine [facility] docusate (COLACE) capsule 100 mg 02-21 14:00: 00 Yes 100mg 100 mg, Oral, DAILY, First dose on Tue02/21/23 at 0900, Until Discontinu ed, Routine [facility] spironolact one (ALDACTONE) tablet 25 mg 02-21 13:00: 00 Yes 25mg 25 mg, Oral, BID, First dose on Tue02/21/23 at 0800, Until Discontinu ed, Routine [facility] pregabalin (LYRICA) capsule 50 mg 02-21 13:00: 00 Yes 50mg 50 mg, Oral, BID, First dose on Tue02/21/23 at 0800, Until Discontinu ed, Routine [facility] mupirocin (BACTROBAN OINT) 2 % skin ointment 02-21 13:00: 00 Yes [facility] metoprolol tartrate (LOPRESSOR) tablet 12.5 mg 02-21 13:00: 00 Yes 12.5mg 12.5 mg, Oral, BID, First dose on Tue02/21/23 at 0800, Until Discontinu ed, Routine [facility] baclofen (LIORESAL) tablet 10 mg 02-21 13:00: 00 Yes 10mg 10 mg, Oral, TID, First dose on Tue02/21/23 at 0800, Until Discontinu ed, Routine [facility] apixaban (ELIQUIS) tablet 5 mg 02-21 13:00: 00 Yes [id number] 5mg 5 mg, Oral, BID, First dose on Tue02/21/23 at 0800, Until Discontinu ed, Routine
Indicatio ns: Non-Valvul ar Atrial Fibrillati on [facility] levothyroxi ne (SYNTHROID) tablet 25 mcg 02-21 11:00: 00 Yes 25ug 25 mcg, Oral, QAM-0600, First dose on Tue02/21/23 at 0600, Until Discontinu ed, [facility] furosem[facility] (LASIX) tablet 40 mg 02-21 11:00: 00 Yes 40mg 40 mg, Oral, BID AT 0600 - 1800, First dose on Tue02/21/23 at 0600, Until Discontinu ed, Routine [facility] benzonatate (TESSALON PERLES) capsule 100 mg 02-21 11:00: 00 Yes 100mg 100 mg, Oral, Q8H, First dose on Tue02/21/23 at 0600, Until Discontinu ed, Routine [facility] FENTanyl PF (SUBLIMAZE (PF)) injection 25 mcg 02-21 06:55: 31 Yes 25ug 25 mcg, Slow IV Push, Q6HPRN, Starting on Tue02/21/23 at 0155, Until Discontinu ed, Routine, Pain (scale 4-6), Pain (scale 7-10) [facility] nystatin (NYSTOP) powder 02-21 06:10: 18 Yes Topical, TIDPRN, Starting on Tue02/21/23 at 0110, Until Discontinu ed, Routine, fungal rash [facility] NaCl 0.9% (NS) IV infusion 1,000 mL 02-21 04:30: 00 Yes 1000mL at 50 mL/hr, IV Infusion, CONTINUOUS , Starting on Tue02/20/23 at 2330, Until Discontinu ed, Routine [facility] ondansetron (ZOFRAN (PF)) injection 4 mg 02-21 04:17: 30 Yes 4mg 4 mg, Slow IV Push, Q6HPRN, Starting on Tue02/20/23 at 2317, Until Discontinu ed, Routine, Nausea and Vomiting (N/V) [facility] acetaminoph en (TYLENOL) tablet 650 mg 02-21 04:17: 11 Yes 650mg 650 mg, Oral, Q6HPRN, Starting on Tue02/20/23 at 2317, Until Discontinu ed, Routine, Pain (scale 1-3) [facility] FUROSEMIDE 40 mg tablet 02-03 00:00: 06-24 00:00 :00 No [id number] TAKE ONE (1) TABLET BY MOUTH EVERY MORNING AND EVENING. [facility] BACLOFEN 10 mg tablet 02-03 00:00: 00 04-19 00:00 :00 No [id number] TAKE ONE (1) TABLET(S) BY MOUTH THREE TIMES A DAY NEEDED. MAY MAKE YOU SLEEPY. [facility] TRAMADOL 50 mg tablet 01-28 00:00: 00 03-02 00:00 :00 No [id number] TAKE ONE (1) TABLET(S) BY MOUTH EVERY SIX HOURS NEEDED FOR PAIN. [facility] azelastine 137 mcg (0.1 %) nasal spray 01-18 00:00: 00 Yes [id number] 1{spray } Use 1 [place] in each nostril in the morning and 1 [place] in the evening. Use in each nostril as directed [facility] nystatin (NYSTOP) 100,000 unit/gram powder 01-18 00:00: 00 04-19 00:00 :00 No [id number] Apply to area(s) 3 (three) times daily as needed for Rash. [facility] FUROSEMIDE 40 mg tablet 01-05 00:00: 00 02-03 00:00 :00 No [id number] TAKE ONE (1) TABLET BY MOUTH EVERY MORNING AND EVENING. [facility] apixaban 5 mg tablet 12-24 00:00: 00 05-09 00:00 :00 No [id number] 5mg Take 1 tablet by mouth in the morning and 1 tablet in the evening. Indication s: history of venous thromboemb olism [facility] traMADoL 50 mg tablet 12-23 00:00: 00 01-28 00:00 :00 No [id number] TAKE ONE (1) TABLET(S) BY MOUTH EVERY SIX HOURS NEEDED FOR PAIN. [facility] tramadol HCl (TRAMADOL ORAL) 12-21 10:44: 23 Yes Take by mouth. [facility] cefTRIAXone (ROCEPHIN) injection 1,000 mg 12-09 16:00: 00 12-09 15:17 :00 No [id number] 1000mg [facility] pramipexole 0.75 mg tablet 12-09 00:00: 00 Yes [id number] .75mg Take 1 tablet by mouth at bedtime. [facility] pramipexole 0.75 mg tablet 12-09 00:00: 00 12-21 00:00 :00 No [id number] .75mg Take 1 tablet by mouth at bedtime. [facility] cefdinir 300 mg capsule 12-09 00:00: 00 01-18 00:00 :00 No [id number] 300mg Take 1 capsule by mouth every 12 (twelve) hours. [facility] semaglutide (OZEMPIC) 2 mg/dose (8 mg/3 mL) PnIj 11-30 00:00: 00 02-21 00:00 :00 No [id number] INJECT TWO (2) MG UNDER THE SKIN ONCE WEEKLY. [facility] SPIRONOLACT ONE 25 mg tablet 10-28 00:00: 00 04-19 00:00 :00 No [id number] TAKE ONE (1) TABLET(S) BY MOUTH EVERY DAY. [facility] pramipexole 0.5 mg tablet 10-28 00:00: 00 12-09 00:00 :00 No [id number] .5mg Take 1 tablet by mouth at bedtime. May take a second tablet if symptoms have not improved. [facility] traMADoL 50 mg tablet 10-28 00:00: 00 11-05 04:59 :00 No [id number] 50mg Take 1 tablet by mouth every 6 (six) hours as needed for Pain (scale 4-6) for up to 7 days. Indication s: chronic pain [facility] BACLOFEN 10 mg tablet 10-14 00:00: 02-03 00:00 :00 No [id number] TAKE ONE (1) TABLET(S) BY MOUTH THREE TIMES A DAY NEEDED. MAY MAKE YOU SLEEPY. [facility] aspirin (ASPIRIN LOW DOSE) 81 mg EC tablet 09-28 10:56: 40 Yes 81mg Take 1 tablet by mouth in the morning. [facility] pantoprazol e 40 mg EC tablet 09-28 00:00: 00 04-19 00:00 :00 No [id number] 40mg Take 1 tablet by mouth in the morning. [facility] Non-Adheren t Bandage (CURAD NON-STICK PAD) 3 X 4 " Bndg 09-28 00:00: 00 04-19 00:00 :00 No [id number] Use as directed [facility] levothyroxi ne 25 mcg tablet 09-28 00:00: 00 04-19 00:00 :00 No [id number] 25ug Take 1 tablet by mouth every morning. [facility] honey (MEDIHONEY, HONEY,) 80 % 09-28 00:00: 00 12-09 00:00 :00 No [id number] 5mg Apply 5 mg to area(s) in the morning. [facility] aspirin (ASPIRIN LOW DOSE) 81 mg EC tablet 09-07 14:41: 12 Yes 81mg Take 1 tablet by mouth in the morning. [facility] FUROSEMIDE 40 mg tablet 09-07 00:00: 00 01-05 00:00 :00 No [id number] TAKE ONE (1) TABLET BY MOUTH EVERY MORNING AND EVENING. [facility] pravastatin 80 mg tablet 09-06 00:00: 00 04-19 00:00 :00 No [id number] 80mg Take 1 tablet by mouth at bedtime. [facility] [facility] sp[facility]act one 25 mg tablet 09-04 00:00: 00 10-28 00:00 :00 No 25mg Take 1 tablet by mouth in the morning. [facility] BENZONATATE 100 mg capsule 3-03 00:00: 00 11-10 00:00 :00 No [id number] TAKE ONE (1) OR TWO (2) CAPSULE(S) BY MOUTH EVERY EIGHT HOURS NEEDED FOR COUGH. [facility] aspirin (ASPIRIN LOW DOSE) 81 mg EC tablet 08-31 11:35: 12 Yes 81mg Take 1 tablet by mouth in the morning. [facility] latanoprost (XALATAN) 0.005 % ophthalmic drops 08-31 11:35: 12 Yes 1[drp] Place 1 Drop in both eyes every evening. [facility] escitalopra m oxalate 10 mg tablet 08-31 00:00: 00 08-22 00:00 :00 No [id number] 10mg Take 1 tablet by mouth in the morning. [facility] insulin degludec 100 unit/mL Soln 08-31 00:00: 00 05-16 00:00 :00 No [id number] 32U inject 32 Units under the skin in the morning. Morning [facility] pregabalin 50 mg capsule 08-31 00:00: 00 03-02 00:00 :00 No [id number] 50mg Take 1 capsule by mouth in the morning and 1 capsule in the evening. [facility] TRESIBA FLEXTOUCH U-100 100 unit/mL (3 mL) InPn 08-24 00:00: 00 02-21 00:00 :00 No INJECT 30 UNIT(S) UNDER THE SKIN EVERY MORNING. [facility] azelastine 137 mcg (0.1 %) nasal spray 08-13 00:00: 00 01-18 00:00 :00 No [id number] 1{spray } Use 1 [place] in each nostril in the morning and 1 [place] in the evening. Use in each nostril as directed [facility] BACLOFEN 10 mg tablet 08-12 00:00: 00 10-14 00:00 :00 No [id number] TAKE ONE (1) TABLET(S) BY MOUTH THREE TIMES A DAY NEEDED. MAY MAKE YOU SLEEPY. [facility] spironolact one 25 mg tablet 2-08 00:00: 00 09-20 00:00 :00 No 25mg Take 1 tablet by mouth in the morning. [facility] lisinopriL 5 mg tablet -30 00:00: 00 09-28 00:00 :00 No TAKE ONE (1) TABLET BY MOUTH IN THE MORNING. [facility] traZODone 50 mg tablet 07-30 00:00: 00 07-19 00:00 :00 No [id number] 50mg Take 1 tablet by mouth at bedtime. [facility] metoprolol tartrate 25 mg tablet 17 00:00: 00 12-08 00:00 :00 No [id number] 12.5mg Take 0.5 tablets by mouth in the morning and 0.5 tablets in the evening. [facility] fluticasone propionate 50 mcg/actuati on nasal spray 07-15 00:00: 00 Yes [id number] 2{spray } Use 2 Sprays in each nostril once daily as needed. [facility] benzonatate 100 mg capsule 07-15 00:00: 00 09-03 00:00 :00 No [id number] 100mg Take 1 capsule by mouth every 8 (eight) hours as needed for Cough. May take 1-2 capsules [facility] traZODone 50 mg tablet -12 00:00: 00 07-30 00:00 :00 No [id number] 50mg Take 1 tablet by mouth at bedtime. [facility] melatonin (MELATIN) tablet 3 mg 07-06 03:00: 00 Yes 3mg 3 mg, Oral, QHS, First dose on Tue07/05/22 at 2100, Until Discontinu ed, Routine [facility] traZODone (DESYREL) tablet 100 mg 07-06 03:00: 00 Yes 100mg 100 mg, Oral, QHS, First dose (after last modificati on) on Tue07/05/22 at 2100, Until Discontinu ed, [facility] furo[facility] (LASIX) tablet 40 mg 07-05 23:00: 00 Yes 40mg 40 mg, Oral, QAM+PM, First dose on Tue07/05/22 at 1700, Until Discontinu ed, Routine [facility] aspirin (ASPIRIN LOW DOSE) 81 mg EC tablet 07-05 17:22: 16 Yes 81mg Take 81 mg by mouth daily. [facility] latanoprost (XALATAN) 0.005 % ophthalmic drops 07-05 17:22: 16 Yes 1[drp] Place 1 Drop in both eyes every evening. [facility] mupirocin 2 % ointment 07-05 00:00: 00 04-19 00:00 :00 No [id number] Apply to area(s) 3 (three) times daily. As needed [facility] melatonin 3 mg tablet 07-05 00:00: 00 04-12 00:00 :00 No [id number] 3mg Take 1 tablet by mouth at bedtime. [facility] docusate 100 mg capsule 07-05 00:00: 00 02-21 00:00 :00 No [id number] 100mg Take 1 capsule by mouth in the morning and 1 capsule in the evening. [facility] metoprolol tartrate 75 mg Tab 07-05 00:00: 00 07-15 00:00 :00 No [id number] 75mg Take 75 mg by mouth 2 (two) times daily for 30 days. [facility] benzonatate 100 mg capsule 07-05 00:00: 00 07-15 00:00 :00 No [id number] 100mg Take 1 capsule by mouth every 8 (eight) hours as needed for Cough. [facility] traZODone 50 mg tablet 07-05 00:00: 00 07-15 00:00 :00 No [id number] 50mg Take 1 tablet by mouth at bedtime for 30 days. [facility] furosemide (LASIX) injection 40 mg 07-04 14:00: 00 07-05 14:47 :21 No 40mg 40 mg, Slow IV Push, Q12H, First dose (after last modificati on) on Tue07/04/22 at 0800, Until Discontinu ed, Routine [facility] traZODone (DESYREL) tablet 50 mg 07-04 03:00: 00 07-05 17:04 :22 No 50mg 50 mg, Oral, QHS, First dose on 07/03/22 at 2100, Until Discontinu ed, Routine [facility] KCL (KLOR-CON M20) tablet 40 mEq 2021-07 21:45: 00 Yes 40meq 40 mEq, Oral, BID, First dose (after last reorder) on 07/03/22 at 1545, Until Discontinu ed, Routine [facility] KCL (KLOR-CON M20) tablet 40 mEq 2021-07 16:15: 00 07-02 17:19 :00 No 40meq 40 mEq, Oral, ONCE, 1 dose, On Tue07/02/22 at 1015, Routine [facility] ceFEPIme (MAXIPIME) 1,000 mg in NaCl 0.9% [...]
Durat ion of therapy: 5 days [facility] metoprolol tartrate (LOPRESSOR) tablet 75 mg 2021-07 14:00: 00 Yes 75mg 75 mg, Oral, BID, First dose (after last modificati on) on Devika 07/01/22 at 0800, Until Discontinu ed, Routine [facility] ceFEPIme (MAXIPIME) 1,000 mg in NaCl 0.9% [...] y
Durat ion of therapy: 5 days [facility] digoxin (LANOXIN) injection 250 mcg 2021-07 21:00: 00 06-30 21:27 :00 No 250ug 250 mcg, Intravenou s, ONCE, 1 dose, On Tue06/30/22 at 1500, Routine [facility] furosemide (LASIX) injection 40 mg 2021-07 20:00: 00 07-03 21:32 :30 No 40mg 40 mg, Slow IV Push, Q8H, First dose (after last modificati on) on Tue06/30/22 at 1400, Until Discontinu ed, Routine [facility] vancomycin 1,250 mg in NaCl 0.9% (NS) [...] y
Durat ion of therapy: 5 days [facility] ceFEPIme (MAXIPIME) 1,000 mg in NaCl 0.9% (NS) 50 mL MINI-BAG 2021-07 18:00: 00 06-30 19:23 :00 No 1000mg 1,000 mg, IV Piggyback, ONCE, 1 dose, On Tue06/30/22 at 1200, Administer over 30 Minutes, 50 mL
Reas on for Anti-Infec tive: Empiric Therapy for Suspected Infection< br>Empiric Therapy Site: Respirator y
Durat ion of therapy: 72 hours [facility] lactobacill us acidophilus tablet 1 mg 2021-07 17:15: 00 Yes 1mg 1 mg, Oral, BID, First dose on Tue06/30/22 at 1115, Until Discontinu ed, Routine [facility] bisacodyL (DULCOLAX) suppository 10 mg 2021-07 15:15: 00 06-30 15:26 :00 No 10mg 10 mg, Rectal, ONCE, 1 dose, On Tue06/30/22 at 0915, Routine [facility] polyethylen e glycol 3350 powder 17 g 2021-07 15:00: 00 07-02 14:10 :00 No 17g 17 g, Oral, DAILY, 3 doses, First dose on Tue06/30/22 at 0900, Last dose on Tue07/02/22 at 0900, Routine [facility] KCL (KLOR-CON M20) tablet 20 mEq 2021-07 14:45: 00 06-30 15:26 :00 No 20meq 20 mEq, Oral, ONCE, 1 dose, On Tue06/30/22 at 0845, Routine [facility] sennosides (SENOKOT) tablet 8.6 mg 2021-07 14:30: 00 Yes 8.6mg 8.6 mg, Oral, BID, First dose on Tue06/30/22 at 0830, Until Discontinu ed, [facility] docus[facility] (COLACE) capsule 100 mg 2021-07 14:30: 00 Yes 100mg 100 mg, Oral, BID, First dose on Tue06/30/22 at 0830, Until Discontinu ed, Routine [facility] digoxin (LANOXIN) injection 500 mcg 2021-07 14:15: 00 06-30 13:27 :00 No 500ug 500 mcg, Intravenou s, ONCE, 1 dose, On Tue06/30/22 at 0815, Routine [facility] metoprolol tartrate (LOPRESSOR) tablet 50 mg 2021-07 14:00: 00 07-01 13:55 :27 No 50mg 50 mg, Oral, BID, First dose (after last modificati on) on Tue06/30/22 at 0800, Until Discontinu ed, Routine [facility] furosemide (LASIX) injection 40 mg 2021-07 14:00: 00 06-30 14:36 :33 No 40mg 40 mg, Slow IV Push, Q12H, First dose (after last modificati on) on Tue06/30/22 at 0800, Until Discontinu ed, Routine [facility] metoprolol (LOPRESSOR) injection 5 mg 2021-07 12:33: 00 06-30 12:34 :00 No 5mg 5 mg, Intravenou s, ONCE NOW, 1 dose, On Tue06/30/22 at 0645, GI [facility] ipratropium -albuteroL (DUONEB) 0.5 mg-3 mg(2.5 mg base)/3 mL nebulizer solution 3 mL 2021-07 12:14: 50 Yes 3mL 3 mL, Inhalation , Q6HPRN, Starting on Tue06/30/22 at 0614, Until Discontinu ed, Routine, Wheezing [facility] metoprolol tartrate (LOPRESSOR) tablet 25 mg 2021-07 02:00: 00 06-30 12:36 :09 No 25mg 25 mg, Oral, BID, First dose (after last modificati on) on Tue06/29/22 at 2000, Until Discontinu ed, [facility] guaiFENesin (FENESIN IR) tablet 400 mg 2021-07 00:15: 00 Yes 400mg 400 mg, Oral, Q6H, First dose on Tue06/29/22 at 1815, Until Discontinu ed, Routine [facility] benzocaine- menthoL (CEPACOL SORE THROAT (JYOTSNA-MEN)) lozenge 1 Lozenge 2021-07 00:15: 00 Yes 1{lozen ge} 1 Lozenge, Oral, Q6H, First dose on Tue06/29/22 at 1815, Until Discontinu ed, Routine [facility] levalbutero l (XOPENEX) nebulizer solution 0.63 mg 2021-07 00:00: 00 Yes .63mg 0.63 mg, Inhalation , QID, First dose on Tue06/29/22 at 1800, Until Discontinu ed, Routine [facility] furosemide (LASIX) injection 20 mg 2021-07 14:00: 00 06-30 13:15 :52 No 20mg 20 mg, Slow IV Push, Q12H, First dose on Tue06/29/22 at 0800, Until Discontinu ed, [facility]ine [facility] metoclopram cory HCl (REGLAN) injection 10 mg 2021-07 06:26: 57 Yes 10mg 10 mg, Slow IV Push, TIDPRN, Starting on Tue06/29/22 at 0026, Until Discontinu ed, Routine, Nausea and Vomiting (N/V) [facility] NaCl 0.9% (NS) IV infusion 1,000 mL 2021-07 00:00: 00 06-29 13:03 :24 No 1000mL at 80 mL/hr, IV Infusion, CONTINUOUS , Starting on Tue06/27/22 at 1800, Until Tue06/29/22 at 0703, [facility] ondansetron (ZOFRAN (PF)) injection 4 mg 2021-07 22:23: 48 Yes 4mg 4 mg, Slow IV Push, Q6HPRN, Starting on Tue06/27/22 at 1623, Until Discontinu ed, GI, Nausea and Vomiting (N/V) [facility] cefTRIAXone (ROCEPHIN) 1,000 mg in NaCl 0.9% (NS) 50 mL MINI-BAG 2021-07 18:00: 00 06-30 17:10 :54 No 1000mg 1,000 mg, IV Piggyback, Q24H ABX, 5 doses, First dose (after last reorder) on 06/27/22 at 1200, Last dose on Tue07/01/22 at 1200, Administer over 30 Minutes, 50 mL
Reas on for Anti-Infec tive: Documented Infection< br>Documen steph Infection Site: Urine
D uration of Therapy: Other (see Comments) [facility] pantoprazol e (PROTONIX) EC tablet 40 mg 2021-07 15:00: 00 Yes 40mg 40 mg, Oral, DAILY, First dose on 06/27/22 at 0900, Until Discontinu ed, Routine [facility] escitalopra m oxalate (LEXAPRO) tablet 10 mg 2021-07 15:00: 00 Yes 10mg 10 mg, Oral, DAILY, First dose on 06/27/22 at 0900, Until Discontinu ed, Routine [facility] aspirin EC tablet 81 mg 2021-07 15:00: 00 Yes 81mg 81 mg, Oral, DAILY, First dose on 06/27/22 at 0900, Until Discontinu ed, Routine [facility] levothyroxi ne (SYNTHROID) tablet 25 mcg 2021-07 12:00: 00 Yes 25ug 25 mcg, Oral, QAM-0600, First dose on 06/27/22 at 0600, Until Discontinu ed, Routine [facility] benzonatate (TESSALON PERLES) capsule 100 mg 2021-07 11:55: 14 Yes 100mg 100 mg, Oral, Q8HPRN, Starting on 06/27/22 at 0555, Until Discontinu ed, Routine, Cough [facility] baclofen (LIORESAL) tablet 10 mg 2021-07 05:31: 57 Yes 10mg 10 mg, Oral, TIDPRN, Starting on 06/26/22 at 2331, Until Discontinu ed, Routine, for restless legs, may make you sleepy [facility] traMADoL (ULTRAM) tablet 50 mg 2021-07 05:31: 44 Yes 50mg 50 mg, Oral, Q8HPRN, Starting on 06/26/22 at 2331, Until Discontinu ed, Routine, Pain (scale 4-6) [facility] pregabalin (LYRICA) capsule 50 mg 2021-07 03:00: 00 Yes 50mg 50 mg, Oral, QHS, First dose on 06/26/22 at 2100, Until Discontinu ed, Routine [facility] pramipexole (MIRAPEX) tablet 0.5 mg 2021-07 03:00: 00 Yes .5mg 0.5 mg, Oral, QHS, First dose on [facility] 06/26/22 at 2100, Until Discontinu ed, Routine [facility] Sliding Scale Insulin - Lispro (HumaLOG) + Fsbg Testing 2021-07 02:00: 00 Yes Subcutaneo us, Q4H, First dose on 06/26/22 at 2000, Until Discontinu ed, Routine [facility] apixaban (ELIQUIS) tablet 5 mg 2021-07 02:00: 00 Yes [id number] 5mg 5 mg, Oral, BID, First dose on 06/26/22 at 2000, Until Discontinu ed, Routine
Indicatio ns: Non-Valvul ar Atrial Fibrillati on [facility] metoprolol tartrate (LOPRESSOR) tablet 12.5 mg 2021-07 02:00: 00 06-29 23:04 :26 No 12.5mg 12.5 mg, Oral, BID, First dose on 06/26/22 at 2000, Until Discontinu ed, Routine [facility] dextrose 10% (D10W) bolus infusion 250 mL [...] blood glucose is < 80 mg/dL, repeat.
[facility] glucagon (GLUCAGEN DIAGNOSTIC KIT) injection 1 mg 2021-07 01:00: 08 Yes 1mg 1 mg, Intramuscu lar, PRN, Starting on 06/26/22 at 1900, Until Discontinu ed, GI, Blood Glucose < or = 70 mg/dL and patient is unable to swallow or has mental changes. [facility] D5W 0.9% NaCl (NS) IV infusion 1,000 mL 2021-07 01:00: 00 06-27 22:43 :57 No 1000mL at 42 mL/hr, 1,000 mL, IV Infusion, CONTINUOUS , Starting on 06/26/22 at 1900, Until 06/27/22 at 1643, Routine [facility] latanoprost (XALATAN) 0.005 % ophthalmic drops 1 Drop 2021-07 00:00: 00 Yes 1[drp] 1 Drop, Both Eyes, QPM, First dose on 06/26/22 at 1800, Until Discontinu ed, Routine [facility] acetaminoph en (TYLENOL) tablet 650 mg 2021-07 23:50: 15 Yes 650mg 650 mg, Oral, Q6HPRN, Starting on 06/26/22 at 1750, Until Discontinu ed, Routine, Pain (scale 1-3) [facility] ondansetron (ZOFRAN (PF)) injection 4 mg 2021-07 19:15: 00 06-26 18:41 :00 No 4mg 4 mg, Slow IV Push, ONCE, 1 dose, On 06/26/22 at 1315, GI [facility] blood sugar diagnostic (ACCU-CHEK PHILLIP) strip 2021-07 00:00: 00 Yes [id number] Take sugars 3 times a day, DX E11.9 [facility] blood sugar diagnostic (ACCU-CHEK PHILLIP) strip 2021-07 00:00: 00 04-19 00:00 :00 No [id number] Take sugars 3 times a day, DX E11.9 [facility] escitalopra m oxalate 10 mg tablet 2021-07 00:00: 00 08-31 00:00 :00 No [id number] 10mg Take 1 tablet by mouth in the morning. [facility] pregabalin 50 mg capsule 2021-07 00:00: 00 08-31 00:00 :00 No [id number] 50mg Take 1 capsule by mouth at bedtime. [facility] metoprolol tartrate 25 mg tablet 2021-07 00:00: 00 07-05 00:00 :00 No [id number] 12.5mg Take 0.5 tablets by mouth in the morning and 0.5 tablets in the evening. [facility] baclofen 10 mg tablet 2021-07 00:00: 00 08-12 00:00 :00 No [id number] 9104 10mg Take 1 tablet by mouth 3 (three) times daily as needed for Pain (scale 4-6) (for restless legs, may make you sleepy). [facility] KLOR-CON 10 10 mEq CR tablet 2021-07 00:00: 00 10-28 00:00 :00 No [id number] TAKE 1 TABLET BY MOUTH ONCE DAILY NEEDED FOR OTHER (TAKE WHEN INCREASING LASIX DOSE). [facility] furosemide 40 mg tablet 2021-07 0-20 00:00: 00 09-07 00:00 :00 No [id number] 40mg Take 1 tablet by mouth every morning and evening. [facility] flash glucose scanning reader (FREESTYLE KANDI 14 DAY READER) [facility] [place]-07 00:00: 00 06-26 00:00 :00 No [id number] 1{each} inject 1 Each under the skin every 14 (fourteen) days. [facility] flash glucose sensor (FREESTYLE KANDI 2 SENSOR) Kit 2021-07 00:00: 00 06-26 00:00 :00 No [id number] 1{each} inject 1 Each under the skin every 14 (fourteen) days. Change 1 sensor every 14 days [facility] lisinopriL 5 mg tablet 2021-07 00:00: 00 05-10 00:00 :00 No [id number] 5mg Take 1 tablet by mouth in the morning. [facility] FREESTYLE KANDI 14 DAY READER [facility] [place]-07 00:00: 00 04-22 00:00 :00 No [id number] USE WITH SENSOR TO CHECK BLOOD SUGAR FOUR TIMES DAILY DIRECTED [facility] semaglutide (OZEMPIC) 2 mg/dose (8 mg/3 mL) PnIj 03-29 00:00: 00 11-30 00:00 :00 No [id number] 2mg inject 2 mg under the skin weekly. [facility] baclofen 10 mg tablet 03-25 00:00: 00 06-01 00:00 :00 No [id number] 9104 10mg Take 1 tablet by mouth 3 (three) times daily as needed for Pain (scale 4-6) (for restless legs, may make you sleepy). [facility] flash glucose scanning reader (FREESTYLE KANDI 14 DAY READER) [facility] [place] 03-25 00:00: 00 04-13 00:00 :00 No 1{appli cator} 1 Applicator 4 (four) times daily. Check glucose qid as directed [facility] FREESTYLE KANDI 2 SENSOR Kit 03-24 00:00: 00 04-22 00:00 :00 No [id number] CHANGE 1 SENSOR EVERY 14 DAYS [facility] BACLOFEN 10 mg tablet 03-23 00:00: 00 03-25 00:00 :00 No [id number] 9104 10mg TAKE 1 TABLET BY MOUTH 3 (THREE) TIMES DAILY NEEDED FOR PAIN (SCALE 4-6) (FOR RESTLESS LEGS, MAY MAKE YOU SLEEPY). [facility] apixaban 5 mg tablet 03-19 00:00: 00 12-24 00:00 :00 No [id number] 5mg Take 1 tablet by mouth in the morning and 1 tablet in the evening. Indication s: history of venous thromboemb olism [facility] flash glucose sensor (FREESTYLE KANDI 2 SENSOR) Kit 03-16 00:00: 00 03-24 00:00 :00 No [id number] 9109 1{each} 1 Each every 14 (fourteen) days. [facility] flash glucose sensor (FREESTYLE KANDI 2 SENSOR) Kit 03-15 00:00: 00 03-16 00:00 :00 No [id number] 1{each} 1 Each every 7 (seven) days. Apply every 10 days [facility] insulin aspart U-100 100 unit/mL (3 mL) injection 02-25 00:00: 00 07-05 00:00 :00 No [id number] INJECT 12 U SUBCUTANEO USLY WITH BREAKFAST, 14 U WITH LUNCH/DINN ER DAILY [facility] potassium chloride 10 mEq CR tablet 02-25 00:00: 00 05-31 00:00 :00 No [id number] 10meq Take 1 tablet by mouth once daily as needed for Other (Take when increasing Lasix dose). [facility] flash glucose scanning reader (FREESTYLE KANDI 14 DAY READER) [facility] [place] 02-25 00:00: 00 03-25 00:00 :00 No [id number] 1{appli cator} 1 Applicator 4 (four) times daily. Check glucose qid as directed [facility] baclofen 10 mg tablet 02-25 00:00: 00 03-23 00:00 :00 No [id number] 9104 10mg Take 1 tablet by mouth 3 (three) times daily as needed for Pain (scale 4-6) (for restless legs, may make you sleepy). [facility] rivaroxaban 20 mg tablet 02-25 00:00: 00 03-19 00:00 :00 No [id number] 20mg Take 1 tablet by mouth in the morning. Indication s: blood clot formation in vein [facility] flash glucose sensor (FREESTYLE KANDI 14 DAY SENSOR) Kit 02-25 00:00: 00 03-15 00:00 :00 No [id number] 1{appli cator} 1 Applicator 4 (four) times daily. Check glucose qid as directed [facility] aspirin (ASPIRIN LOW DOSE) 81 mg EC tablet 02-20 12:17: 44 Yes 81mg Take 81 mg by mouth daily. [facility] latanoprost , PF, 0.005 % Drop 02-20 12:17: 44 Yes 1[drp] Place 1 Drop in both eyes at bedtime. [facility] insulin degludec (TRESIBA U-100 INSULIN) 100 unit/mL Soln 02-20 00:00: 00 08-31 00:00 :00 No [id number] 30U inject 30 Units under the skin daily. Morning [facility] metoprolol tartrate 25 mg tablet 02-20 00:00: 00 06-08 00:00 :00 No [id number] 12.5mg Take 0.5 tablets by mouth in the morning and 0.5 tablets in the evening. [facility] flash glucose scanning reader (FREESTYLE KANDI 14 DAY READER) Misc 02-20 00:00: 00 02-25 00:00 :00 No [id number] 1{appli cator} 1 Applicator 4 (four) times daily. Check glucose qid as directed [facility] flash glucose sensor (FREESTYLE KANDI 14 DAY SENSOR) Kit 8 00:00: 00 02-25 00:00 :00 No [id number] 1{appli cator} 1 Applicator 4 (four) times daily. Check glucose qid as directed [facility] ferrous sulfate 325 mg (65 mg iron) tablet 02-01 00:00: 00 05-10 00:00 :00 No [id number] 325mg Take 1 tablet by mouth every Tuesday, and Tuesday in the evening. [facility] escitalopra m oxalate 10 mg tablet 02-01 00:00: 00 06-08 00:00 :00 No [id number] 10mg Take 1 tablet by mouth in the morning. [facility] pregabalin 50 mg capsule 02-01 00:00: 00 06-08 00:00 :00 No [id number] 50mg Take 1 capsule by mouth at bedtime. [facility] rivaroxaban 20 mg tablet 02-01 00:00: 00 02-25 00:00 :00 No [id number] 20mg Take 1 tablet by mouth in the morning. Indication s: blood clot formation in vein [facility] insulin aspart U-100 (NOVOLOG FLEXPEN U-100 INSULIN) 100 unit/mL (3 mL) injection 02-01 00:00: 00 02-25 00:00 :00 No [id number] INJECT 10 U SUBCUTANEO USLY WITH BREAKFAST, 12 U WITH LUNCH/DINN ER DAILY [facility] mupirocin 2 % ointment 7 00:00: 00 07-05 00:00 :00 No [id number] Apply to area(s) 3 (three) times daily. [facility] pantoprazol e 40 mg EC tablet 4-24 00:00: 00 Yes [id number] 40mg Take 1 tablet by mouth in the morning. [facility] polyethylen e glycol 3350 (MIRALAX) 17 gram/dose powder 10-25 00:00: 00 Yes [id number] 17g Take 17 g by mouth in the morning. [facility] levothyroxi ne 25 mcg tablet 10-25 00:00: 00 11-10 00:00 :00 No [id number] 25ug Take 1 tablet by mouth every morning. [facility] pramipexole 0.5 mg tablet 10-24 00:00: 00 10-28 00:00 :00 No [id number] .5mg Take 1 tablet by mouth at bedtime. [facility] pramipexole 0.5 mg tablet 10-24 00:00: 00 10-28 00:00 :00 No [id number] .5mg Take 1 tablet by mouth at bedtime. [facility] pravastatin 80 mg tablet 10-24 00:00: 00 09-06 00:00 :00 No [id number] 80mg Take 1 tablet by mouth at bedtime. [facility] furosemide 40 mg tablet 10-24 00:00: 00 04-22 00:00 :00 No [id number] 40mg Take 1 tablet by mouth every morning and evening. [facility] NYSTOP 100,000 unit/gram powder 2020-07 00:00: 00 01-18 00:00 :00 No [facility] NYSTOP 100,000 unit/gram powder 2020-07 00:00: 00 01-18 00:00 :00 No [facility] Lancets (ACCU-CHEK MULTICLIX LANCET) [facility] [place] 03-20 00:00: 00 Yes [id number] Use as directed [facility] Lancets (ACCU-CHEK MULTICLIX LANCET) [facility] [place] 03-20 00:00: 00 04-19 00:00 :00 No [id number] Use as directed [facility] Insulin Syringe-Nee dle U-100 0.3 mL 30 gauge x 1/2" Syrg 03-20 00:00: 00 05-10 00:00 :00 No [id number] Use as directed [facility] Insulin Syringe-Nee dle U-100 0.3 mL 30 gauge x 1/2" Syrg 03-20 00:00: 00 05-10 00:00 :00 No [id number] Use as directed [facility] MULTIVITAMI N ORAL 03-19 09:03: 41 03-19 00:00 :00 No 1000mg Take by mouth. [facility] calcium, magnesium, zinc, prescribed by Dr. Dc. [facility] Insulin [place], Disposable, (BD INSULIN PEN NEEDLE UF) 29 gauge x 1/2" [facility] 2018-07 00:00: 00 Yes [id number] Use as directed, once a day, DX:E11.9 [facility] Insulin [place], Disposable, (BD INSULIN PEN NEEDLE UF) 29 gauge x 1/2" [facility] 2018-07 00:00: 00 04-19 00:00 :00 No [id number] Use as directed, once a day, DX:E11.9 [facility] furosemide 80 mg tablet 12-11 11:36: 35 12-11 00:00 :00 No 80mg Take 80 mg by mouth 2 (two) times daily. [facility] melatonin (MELATIN) 3 mg tablet 12-11 11:34: 53 12-11 00:00 :00 No 3mg Take 3 mg by mouth at bedtime. [facility] ACCU-CHEK PHILLIP strip 11-10 00:00: 00 06-08 00:00 :00 No [id number] Take sugars 1-2 times a day, DX E11.9 [facility] ACCU-CHEK PHILLIP strip 11-10 00:00: 00 06-08 00:00 :00 No [id number] Take sugars 1-2 times a day, DX E11.9 [facility] carvedilol 80 mg 24 hr capsule 2017-07 12:47: 16 05-09 00:00 :00 No 1{capsu le} Take 1 capsule by mouth daily. [facility] TRAMADOL 50 mg tablet 2017-07 00:00: 00 06-11 00:00 :00 No [id number] TAKE 1 TABLET BY MOUTH EVERY 6 HOURS NEEDED FOR BREATKTHRO UGH NEUROPATHY PAIN IN FEET [facility] Insulin Detemir (LEVEMIR FLEXTOUCH U-100 INSULN) 100 unit/mL (3 mL) injection 2017-07 00:00: 00 05-09 00:00 :00 No 30U inject 30 Units under the skin 2 (two) times daily. [facility] BD INSULIN PEN NEEDLE UF 31 gauge x 5/16" Ndle 03-24 00:00: 00 05-09 00:00 :00 No USE 1 TIME DAILY DIRECTED [facility] Insulin Syringe-Nee dle U-100 (BD INSULIN SYRINGE UF) 0.3 mL 30 gauge x 1/2" Syrg 03-22 00:00: 00 03-19 00:00 :00 No [id number] Use as directed for diabetes, E11.9, inject self daily. [facility] levothyroxi ne 25 mcg tablet 03-14 00:00: 00 11-09 00:00 :00 No [id number] 25ug Take 1 tablet by mouth every morning. [facility] METFORMIN ER 500 mg 24 hr tablet 01-09 00:00: 00 06-19 00:00 :00 No [id number] TAKE 2 TABLETS BY MOUTH TWICE A DAY [facility] blood sugar diagnostic (ACCU-CHEK PHILLIP) strip 10-03 00:00: 00 11-10 00:00 :00 No [id number] Take sugars 1-2 times a day, DX E11.9 [facility] omeprazole 40 mg capsule 10-03 00:00: 00 10-20 00:00 :00 No [id number] 40mg Take 1 capsule by mouth daily. [facility] fluticasone (FLONASE) 50 mcg/actuati on nasal spray 07-05 00:00: 00 12-11 00:00 :00 No [id number] 2{spray } Use 2 Sprays in each nostril daily. [facility] spironolact one 50 mg tablet 07-05 00:00: 00 09-13 00:00 :00 No [id number] 50mg Take 1 tablet by mouth daily. [facility] glimepiride 4 mg tablet 07-05 00:00: 00 07-24 00:00 :00 No [id number] 4mg Take 1 tablet by mouth 2 (two) times daily. [facility] pravastatin (PRAVACHOL) 40 mg tablet 2015-07 00:00: 00 07-20 00:00 :00 No TAKE 1 TABLET BY MOUTH AT BEDTIME [facility] pramipexole (MIRAPEX) 0.5 mg tablet 04-01 00:00: 00 07-14 00:00 :00 No TAKE 1/2 TABLET EVERY MORNING AND 1 TABLET EVERY EVENING [facility] Banophen 25 mg capsule Take 1 capsule every 6 hours by oral route. Banophen 25 mg capsule Take 1 capsule every 6 hours by oral route. No 1capsul e(s) Q6H Banophen 25 mg capsule Take 1 capsule every 6 hours by oral route. [facility] BD Ultra-Fine Original Pen Needle 29 gauge x 1/2" BD Ultra-Fine Original Pen Needle 29 gauge x 1/2" No BD Ultra-Fine Original Pen Needle 29 gauge x 1/2" [facility] levothyroxi ne 50 mcg tablet Take 1 tablet every day by oral route. levothyroxi ne 50 mcg tablet Take 1 tablet every day by oral route. No 1 Q1D levothyrox ine 50 mcg tablet Take 1 tablet every day by oral route. [facility] Novolog Flexpen U-100 Insulin aspart 100 unit/mL (3 mL) subcutaneou s sliding scale: based on blood sugar Novolog Flexpen U-100 Insulin aspart 100 unit/mL (3 mL) subcutaneou s sliding scale: based on blood sugar No Novolog Flexpen U-100 Insulin aspart 100 unit/mL (3 mL) subcutaneo us sliding scale: based on blood sugar [facility] Ozempic 1 mg/dose (2 mg/1.5 mL) subcutaneou s pen injector INJECT 1 MG EVERY WEEK BY SUBCUTANEOU S ROUTE. Ozempic 1 mg/dose (2 mg/1.5 mL) subcutaneou s pen injector INJECT 1 MG EVERY WEEK BY SUBCUTANEOU S ROUTE. No Ozempic 1 mg/dose (2 mg/1.5 mL) subcutaneo us pen injector INJECT 1 MG EVERY WEEK BY SUBCUTANEO US ROUTE. [facility] pregabalin 300 mg capsule TAKE 1 CAPSULE BY MOUTH TWICE A DAY pregabalin 300 mg capsule TAKE 1 CAPSULE BY MOUTH TWICE A DAY No pregabalin 300 mg capsule TAKE 1 CAPSULE BY MOUTH TWICE A DAY [facility] sulfamethox azole 800 mg-trimetho prim 160 mg tablet Take 1 tablet every 12 hours by oral route. sulfamethox azole 800 mg-trimetho prim 160 mg tablet Take 1 tablet every 12 hours by oral route. No sulfametho xazole 800 mg-trimeth oprim 160 mg tablet Take 1 tablet every 12 hours by oral route. [facility] Accu-Chek Phillip Plus test strips USE 1 STRIP 3 TIMES A DAY Accu-Chek Phillip Plus test strips USE 1 STRIP 3 TIMES A DAY No Accu-Chek Phillip Plus test strips USE 1 STRIP 3 TIMES A DAY [facility] Banophen 25 mg capsule Take 1 capsule every 6 hours by oral route. Banophen 25 mg capsule Take 1 capsule every 6 hours by oral route. No 1capsul e(s) Q6H Banophen 25 mg capsule Take 1 capsule every 6 hours by oral route. [facility] BD Ultra-Fine Original Pen Needle 29 gauge x 1/2" BD Ultra-Fine Original Pen Needle 29 gauge x 1/2" No BD Ultra-Fine Original Pen Needle 29 gauge x 1/2" [facility] Eliquis 5 mg tablet TAKE 1 TABLET BY MOUTH 2 (TWO) TIMES DAILY. INDICATIONS DEEP VEIN THROMBOSIS PREVENTION Eliquis 5 mg tablet TAKE 1 TABLET BY MOUTH 2 (TWO) TIMES DAILY. INDICATIONS DEEP VEIN THROMBOSIS PREVENTION No Eliquis 5 mg tablet TAKE 1 TABLET BY MOUTH 2 (TWO) TIMES DAILY. INDICATION S DEEP VEIN THROMBOSIS PREVENTION [facility] ferrous sulfate 325 mg (65 mg iron) tablet Take 1 tablet every day by oral route. ferrous sulfate 325 mg (65 mg iron) tablet Take 1 tablet every day by oral route. No 1 Q1D ferrous sulfate 325 mg (65 mg iron) tablet Take 1 tablet every day by oral route. [facility] levothyroxi ne 50 mcg tablet Take 1 tablet every day by oral route. levothyroxi ne 50 mcg tablet Take 1 tablet every day by oral route. No 1 Q1D levothyrox ine 50 mcg tablet Take 1 tablet every day by oral route. [facility] Novolog Flexpen U-100 Insulin aspart 100 unit/mL (3 mL) subcutaneou s sliding scale: based on blood sugar Novolog Flexpen U-100 Insulin aspart 100 unit/mL (3 mL) subcutaneou s sliding scale: based on blood sugar No Novolog Flexpen U-100 Insulin aspart 100 unit/mL (3 mL) subcutaneo us sliding scale: based on blood sugar [facility] Ozempic 1 mg/dose (2 mg/1.5 mL) subcutaneou s pen injector INJECT 1 MG EVERY WEEK BY SUBCUTANEOU S ROUTE. Ozempic 1 mg/dose (2 mg/1.5 mL) subcutaneou s pen injector INJECT 1 MG EVERY WEEK BY SUBCUTANEOU S ROUTE. No Ozempic 1 mg/dose (2 mg/1.5 mL) subcutaneo us pen injector INJECT 1 MG EVERY WEEK BY SUBCUTANEO US ROUTE. [facility] pregabalin 300 mg capsule TAKE 1 CAPSULE BY MOUTH TWICE A DAY pregabalin 300 mg capsule TAKE 1 CAPSULE BY MOUTH TWICE A DAY No pregabalin 300 mg capsule TAKE 1 CAPSULE BY MOUTH TWICE A DAY [facility] doxycycline hyclate 100 mg capsule TAKE 1 CAPSULE BY MOUTH TWICE A DAY doxycycline hyclate 100 mg capsule TAKE 1 CAPSULE BY MOUTH TWICE A DAY No doxycyclin e hyclate 100 mg capsule TAKE 1 CAPSULE BY MOUTH TWICE A DAY [facility] Accu-Chek Phillip Plus test strips USE 1 STRIP 3 TIMES A DAY Accu-Chek Phillip Plus test strips USE 1 STRIP 3 TIMES A DAY No Accu-Chek Phillip Plus test strips USE 1 STRIP 3 TIMES A DAY [facility] Banophen 25 mg capsule TAKE 1 CAPSULE EVERY 6 HOURS BY ORAL ROUTE. As needed for Iching Banophen 25 mg capsule TAKE 1 CAPSULE EVERY 6 HOURS BY ORAL ROUTE. As needed for Iching No Banophen 25 mg capsule TAKE 1 CAPSULE EVERY 6 HOURS BY ORAL ROUTE. As needed for Iching [facility] BD Ultra-Fine Original Pen Needle 29 gauge x 1/2" USE 4 TIMES A DAY DIRECTED BD Ultra-Fine Original Pen Needle 29 gauge x 1/2" USE 4 TIMES A DAY DIRECTED No BD Ultra-Fine Original Pen Needle 29 gauge x 1/2" USE 4 TIMES A DAY DIRECTED [facility] doxycycline hyclate 100 mg capsule doxycycline hyclate 100 mg capsule No doxycyclin e hyclate 100 mg capsule [facility] Eliquis 5 mg tablet TAKE 1 TABLET BY MOUTH 2 (TWO) TIMES DAILY. INDICATIONS DEEP VEIN THROMBOSIS PREVENTION Eliquis 5 mg tablet TAKE 1 TABLET BY MOUTH 2 (TWO) TIMES DAILY. INDICATIONS DEEP VEIN THROMBOSIS PREVENTION No Eliquis 5 mg tablet TAKE 1 TABLET BY MOUTH 2 (TWO) TIMES DAILY. INDICATION S DEEP VEIN THROMBOSIS PREVENTION [facility] Novolog Flexpen U-100 Insulin aspart 100 unit/mL (3 mL) subcutaneou s sliding scale: based on blood sugar Novolog Flexpen U-100 Insulin aspart 100 unit/mL (3 mL) subcutaneou s sliding scale: based on blood sugar No Novolog Flexpen U-100 Insulin aspart 100 unit/mL (3 mL) subcutaneo us sliding scale: based on blood sugar [facility] Ozempic 1 mg/dose (2 mg/1.5 mL) subcutaneou s pen injector INJECT 1 MG EVERY WEEK BY SUBCUTANEOU S ROUTE. Ozempic 1 mg/dose (2 mg/1.5 mL) subcutaneou s pen injector INJECT 1 MG EVERY WEEK BY SUBCUTANEOU S ROUTE. No Ozempic 1 mg/dose (2 mg/1.5 mL) subcutaneo us pen injector INJECT 1 MG EVERY WEEK BY SUBCUTANEO US ROUTE. [facility] pregabalin 300 mg capsule TAKE 1 CAPSULE BY MOUTH TWICE A DAY pregabalin 300 mg capsule TAKE 1 CAPSULE BY MOUTH TWICE A DAY No pregabalin 300 mg capsule TAKE 1 CAPSULE BY MOUTH TWICE A DAY [facility] Accu-Chek Phillip Plus test strips USE 1 STRIP 3 TIMES A DAY Accu-Chek Phillip Plus test strips USE 1 STRIP 3 TIMES A DAY No Accu-Chek Phillip Plus test strips USE 1 STRIP 3 TIMES A DAY [facility] Arnuity Ellipta 200 mcg/actuati on powder for inhalation INHALE 1 PUFF BY MOUTH EVERY 24 HOURS PRN Arnuity Ellipta 200 mcg/actuati on powder for inhalation INHALE 1 PUFF BY MOUTH EVERY 24 HOURS PRN No Arnuity Ellipta 200 mcg/actuat ion powder for inhalation INHALE 1 PUFF BY MOUTH EVERY 24 HOURS PRN [facility] aspirin 81 mg chewable tablet Chew 1 tablet every day by oral route. aspirin 81 mg chewable tablet Chew 1 tablet every day by oral route. No 1 Q1D aspirin 81 mg chewable tablet Chew 1 tablet every day by oral route. [facility] Banophen 25 mg capsule TAKE 1 CAPSULE EVERY 6 HOURS BY ORAL ROUTE. As needed for Iching Banophen 25 mg capsule TAKE 1 CAPSULE EVERY 6 HOURS BY ORAL ROUTE. As needed for Iching No Banophen 25 mg capsule TAKE 1 CAPSULE EVERY 6 HOURS BY ORAL ROUTE. As needed for Iching [facility] BD Ultra-Fine Original Pen Needle 29 gauge x 1/2" USE 4 TIMES A DAY DIRECTED BD Ultra-Fine Original Pen Needle 29 gauge x 1/2" USE 4 TIMES A DAY DIRECTED No BD Ultra-Fine Original Pen Needle 29 gauge x 1/2" USE 4 TIMES A DAY DIRECTED [facility] doxycycline hyclate 100 mg capsule doxycycline hyclate 100 mg capsule No doxycyclin e hyclate 100 mg capsule [facility] doxycycline hyclate 100 mg tablet doxycycline hyclate 100 mg tablet No doxycyclin e hyclate 100 mg tablet [facility] Eliquis 5 mg tablet TAKE 1 TABLET BY MOUTH 2 (TWO) TIMES DAILY. INDICATIONS DEEP VEIN THROMBOSIS PREVENTION Eliquis 5 mg tablet TAKE 1 TABLET BY MOUTH 2 (TWO) TIMES DAILY. INDICATIONS DEEP VEIN THROMBOSIS PREVENTION No Eliquis 5 mg tablet TAKE 1 TABLET BY MOUTH 2 (TWO) TIMES DAILY. INDICATION S DEEP VEIN THROMBOSIS PREVENTION [facility] Farxiga 10 mg tablet TAKE 1 TABLET BY MOUTH EVERY DAY Farxiga 10 mg tablet TAKE 1 TABLET BY MOUTH EVERY DAY No Farxiga 10 mg tablet TAKE 1 TABLET BY MOUTH EVERY DAY [facility] midodrine 5 mg tablet TAKE 1 TABLET BY MOUTH THREE TIMES A DAY midodrine 5 mg tablet TAKE 1 TABLET BY MOUTH THREE TIMES A DAY No midodrine 5 mg tablet TAKE 1 TABLET BY MOUTH THREE TIMES A DAY [facility] Novolog Flexpen U-100 Insulin aspart 100 unit/mL (3 mL) subcutaneou s sliding scale: based on blood sugar Novolog Flexpen U-100 Insulin aspart 100 unit/mL (3 mL) subcutaneou s sliding scale: based on blood sugar No Novolog Flexpen U-100 Insulin aspart 100 unit/mL (3 mL) subcutaneo us sliding scale: based on blood sugar [facility] Nystop 100,000 unit/gram topical powder APPLY TO THE AFFECTED AREA(S) BY TOPICAL ROUTE 2 TIMES PER DAY Nystop 100,000 unit/gram topical powder APPLY TO THE AFFECTED AREA(S) BY TOPICAL ROUTE 2 TIMES PER DAY No Nystop 100,000 unit/gram topical powder APPLY TO THE AFFECTED AREA(S) BY TOPICAL ROUTE 2 TIMES PER DAY [facility] Ozempic 1 mg/dose (2 mg/1.5 mL) subcutaneou s pen injector INJECT 1 MG EVERY WEEK BY SUBCUTANEOU S ROUTE. Ozempic 1 mg/dose (2 mg/1.5 mL) subcutaneou s pen injector INJECT 1 MG EVERY WEEK BY SUBCUTANEOU S ROUTE. No Ozempic 1 mg/dose (2 mg/1.5 mL) subcutaneo us pen injector INJECT 1 MG EVERY WEEK BY SUBCUTANEO US ROUTE. [facility] Ozempic 1 mg/dose (4 mg/3 mL) subcutaneou s pen injector INJECT 1 MG EVERY WEEK SUBCUTANEOU SLY Ozempic 1 mg/dose (4 mg/3 mL) subcutaneou s pen injector INJECT 1 MG EVERY WEEK SUBCUTANEOU SLY No Ozempic 1 mg/dose (4 mg/3 mL) subcutaneo us pen injector INJECT 1 MG EVERY WEEK SUBCUTANEO USLY [facility] potassium chloride ER 10 mEq tablet,exte nded release(par t/cryst) Take 2 tablets every day by oral route. potassium chloride ER 10 mEq tablet,exte nded release(par t/cryst) Take 2 tablets every day by oral route. No 2 Q1D potassium chloride ER 10 mEq tablet,ext ended release(pa rt/cryst) Take 2 tablets every day by oral route. [facility] pramipexole 0.75 mg tablet TAKE 1 TABLET BY MOUTH EVERYDAY AT BEDTIME pramipexole 0.75 mg tablet TAKE 1 TABLET BY MOUTH EVERYDAY AT BEDTIME No pramipexol e 0.75 mg tablet TAKE 1 TABLET BY MOUTH EVERYDAY AT BEDTIME [facility] pregabalin 300 mg capsule TAKE 1 CAPSULE BY MOUTH TWICE A DAY pregabalin 300 mg capsule TAKE 1 CAPSULE BY MOUTH TWICE A DAY No pregabalin 300 mg capsule TAKE 1 CAPSULE BY MOUTH TWICE A DAY [facility] Miralax 17 gram/dose oral powder Take by oral route. Miralax 17 gram/dose oral powder Take by oral route. No Miralax 17 gram/dose oral powder Take by oral route. [facility] cefadroxil 500 mg capsule TAKE 2CAPSULES BY MOUTH DAILY FOR 9 DAYS. cefadroxil 500 mg capsule TAKE 2CAPSULES BY MOUTH DAILY FOR 9 DAYS. No cefadroxil 500 mg capsule TAKE 2CAPSULES BY MOUTH DAILY FOR 9 DAYS. [facility] triamcinolo ne acetonide 0.1 % topical ointment APPLY TO AREA(S) 2 (TWO) TIMES DAILY NEEDED FOR RASH. triamcinolo ne acetonide 0.1 % topical ointment APPLY TO AREA(S) 2 (TWO) TIMES DAILY NEEDED FOR RASH. No triamcinol one acetonide 0.1 % topical ointment APPLY TO AREA(S) 2 (TWO) TIMES DAILY NEEDED FOR RASH. [facility] Accu-Chek Phillip Plus test strips USE 1 STRIP 3 TIMES A DAY Accu-Chek Phillip Plus test strips USE 1 STRIP 3 TIMES A DAY No Accu-Chek Phillip Plus test strips USE 1 STRIP 3 TIMES A DAY [facility] aspirin 81 mg chewable tablet Chew 1 tablet every day by oral route. aspirin 81 mg chewable tablet Chew 1 tablet every day by oral route. No aspirin 81 mg chewable tablet Chew 1 tablet every day by oral route. [facility] Banophen 25 mg capsule TAKE 1 CAPSULE EVERY 6 HOURS BY ORAL ROUTE. As needed for Iching Banophen 25 mg capsule TAKE 1 CAPSULE EVERY 6 HOURS BY ORAL ROUTE. As needed for Iching No Banophen 25 mg capsule TAKE 1 CAPSULE EVERY 6 HOURS BY ORAL ROUTE. As needed for Iching [facility] BD Ultra-Fine Original Pen Needle 29 gauge x 1/2" USE 4 TIMES A DAY DIRECTED BD Ultra-Fine Original Pen Needle 29 gauge x 1/2" USE 4 TIMES A DAY DIRECTED No BD Ultra-Fine Original Pen Needle 29 gauge x 1/2" USE 4 TIMES A DAY DIRECTED [facility] Eliquis 5 mg tablet TAKE 1 TABLET BY MOUTH 2 (TWO) TIMES DAILY. INDICATIONS : DVT PREVENTION Eliquis 5 mg tablet TAKE 1 TABLET BY MOUTH 2 (TWO) TIMES DAILY. INDICATIONS : DVT PREVENTION No Eliquis 5 mg tablet TAKE 1 TABLET BY MOUTH 2 (TWO) TIMES DAILY. INDICATION S: DVT PREVENTION [facility] Farxiga 10 mg tablet TAKE 1 TABLET BY MOUTH EVERY DAY Farxiga 10 mg tablet TAKE 1 TABLET BY MOUTH EVERY DAY No Farxiga 10 mg tablet TAKE 1 TABLET BY MOUTH EVERY DAY [facility] midodrine 5 mg tablet Take 1 tablet twice a day by oral route. midodrine 5 mg tablet Take 1 tablet twice a day by oral route. No 1 BID midodrine 5 mg tablet Take 1 tablet twice a day by oral route. [facility] Miralax 17 gram/dose oral powder Take by oral route. Miralax 17 gram/dose oral powder Take by oral route. No Miralax 17 gram/dose oral powder Take by oral route. [facility] Novolog Flexpen U-100 Insulin aspart 100 unit/mL (3 mL) subcutaneou s Inject 04-14-12 Novolog Flexpen U-100 Insulin aspart 100 unit/mL (3 mL) subcutaneou s Inject 04-14-12 No Novolog Flexpen U-100 Insulin aspart 100 unit/mL (3 mL) subcutaneo us Inject 04-14-12 [facility] Ozempic 1 mg/dose (4 mg/3 mL) subcutaneou s pen injector INJECT 1 MG SUBCUTANEOU SLY EVERY WEEK Ozempic 1 mg/dose (4 mg/3 mL) subcutaneou s pen injector INJECT 1 MG SUBCUTANEOU SLY EVERY WEEK No Ozempic 1 mg/dose (4 mg/3 mL) subcutaneo us pen injector INJECT 1 MG SUBCUTANEO USLY EVERY WEEK [facility] potassium chloride ER 10 mEq tablet,exte nded release(par t/cryst) TAKE 2 TABLETS BY MOUTH EVERY DAY potassium chloride ER 10 mEq tablet,exte nded release(par t/cryst) TAKE 2 TABLETS BY MOUTH EVERY DAY No potassium chloride ER 10 mEq tablet,ext ended release(pa rt/cryst) TAKE 2 TABLETS BY MOUTH EVERY DAY [facility] pramipexole 0.75 mg tablet Take 1 tablet every day by oral route. pramipexole 0.75 mg tablet Take 1 tablet every day by oral route. No 1 Q1D pramipexol e 0.75 mg tablet Take 1 tablet every day by oral route. [facility] Tresiba FlexTouch U-100 insulin 100 unit/mL (3 mL) subcutaneou s pen INJECT 70 UNITS UNDER THE SKIN ONCE DAILY Tresiba FlexTouch U-100 insulin 100 unit/mL (3 mL) subcutaneou s pen INJECT 70 UNITS UNDER THE SKIN ONCE DAILY No Tresiba FlexTouch U-100 insulin 100 unit/mL (3 mL) subcutaneo us pen INJECT 70 UNITS UNDER THE SKIN ONCE DAILY [facility] triamcinolo ne acetonide 0.1 % topical ointment APPLY TO AREA(S) 2 (TWO) TIMES DAILY NEEDED FOR RASH. triamcinolo ne acetonide 0.1 % topical ointment APPLY TO AREA(S) 2 (TWO) TIMES DAILY NEEDED FOR RASH. No triamcinol one acetonide 0.1 % topical ointment APPLY TO AREA(S) 2 (TWO) TIMES DAILY NEEDED FOR RASH. [facility] Accu-Chek Phillip Plus test strips USE 1 STRIP 3 TIMES A DAY Accu-Chek Phillip Plus test strips USE 1 STRIP 3 TIMES A DAY No Accu-Chek Phillip Plus test strips USE 1 STRIP 3 TIMES A DAY [facility] Arnuity Ellipta 200 mcg/actuati on powder for inhalation 1 puff PO qd Arnuity Ellipta 200 mcg/actuati on powder for inhalation 1 puff PO qd No Arnuity Ellipta 200 mcg/actuat ion powder for inhalation 1 puff PO qd [facility] Immunizations Ordered Immunization Name Filled Immunization Name Date Status Comments Source TDAP 2023-11-11 00:00:00 Completed TDAP 2023-11-11 00:00:00 Completed TDAP 2023-11-11 00:00:00 Completed Influenza Virus Vaccine,quad Im,preserve Free 2022-05-10 00:00:00 Completed [facility] Influenza Virus Vaccine,quad Im,preserve Free 2022-05-10 00:00:00 Completed [facility] Influenza Virus Vaccine,quad Im,preserve Free 2022-05-10 00:00:00 Completed [facility] Influenza Virus Vaccine,quad Im,preserve Free 2022-05-10 00:00:00 Completed [facility] Influenza Virus Vaccine,quad Im,preserve Free 2022-05-10 00:00:00 Completed [facility] Influenza Virus Vaccine,quad Im,preserve Free 2022-05-10 00:00:00 Completed [facility] Influenza Virus Vaccine,quad Im,preserve Free 2022-05-10 00:00:00 Completed [facility] Influenza Virus Vaccine,quad Im,preserve Free 2022-05-10 00:00:00 Completed [facility] Influenza Virus Vaccine,quad Im,preserve Free 2022-05-10 00:00:00 Completed [facility] Influenza Virus Vaccine,quad Im,preserve Free 2022-05-10 00:00:00 Completed [facility] Influenza Virus Vaccine,quad Im,preserve Free 2022-05-10 00:00:00 Completed [facility] Influenza Virus Vaccine,quad Im,preserve Free 2022-05-10 00:00:00 Completed [facility] Influenza Virus Vaccine,quad Im,preserve Free 2022-05-10 00:00:00 Completed [facility] Influenza Virus Vaccine,quad Im,preserve Free 2022-05-10 00:00:00 Completed [facility] Influenza Virus Vaccine,quad Im,preserve Free 2022-05-10 00:00:00 Completed [facility] Influenza Virus Vaccine,quad Im,preserve Free 2022-05-10 00:00:00 Completed [facility] Influenza Virus Vaccine,quad Im,preserve Free 2022-05-10 00:00:00 Completed [facility] Influenza Virus Vaccine,quad Im,preserve Free 2022-05-10 00:00:00 Completed [facility] Influenza Virus Vaccine,quad Im,preserve Free 2022-05-10 00:00:00 Completed [facility] Influenza Virus Vaccine,quad Im,preserve Free 2022-05-10 00:00:00 Completed [facility] Influenza Virus Vaccine,quad Im,preserve Free 2022-05-10 00:00:00 Completed [facility] Influenza Virus Vaccine,quad Im,preserve Free 2022-05-10 00:00:00 Completed [facility] Influenza Virus Vaccine,quad Im,preserve Free 2022-05-10 00:00:00 Completed [facility] Influenza Virus Vaccine,quad Im,preserve Free 2022-05-10 00:00:00 Completed [facility] Influenza Virus Vaccine,quad Im,preserve Free 2022-05-10 00:00:00 Completed [facility] Influenza Virus Vaccine,quad Im,preserve Free 2022-05-10 00:00:00 Completed [facility] Influenza Virus Vaccine,quad Im,preserve Free 2022-05-10 00:00:00 Completed [facility] Influenza Virus Vaccine,quad Im,preserve Free 2022-05-10 00:00:00 Completed [facility] Influenza Virus Vaccine,quad Im,preserve Free 2022-05-10 00:00:00 Completed [facility] Influenza Virus Vaccine,quad Im,preserve Free 2022-05-10 00:00:00 Completed [facility] Influenza Virus Vaccine,quad Im,preserve Free 2022-05-10 00:00:00 Completed [facility] Influenza Virus Vaccine,quad Im,preserve Free 2022-05-10 00:00:00 Completed [facility] Influenza Virus Vaccine,quad Im,preserve Free 2022-05-10 00:00:00 Completed [facility] Influenza Virus Vaccine,quad Im,preserve Free 2022-05-10 00:00:00 Completed [facility] Influenza Virus Vaccine,quad Im,preserve Free 2022-05-10 00:00:00 Completed [facility] Influenza Virus Vaccine,quad Im,preserve Free 2022-05-10 00:00:00 Completed [facility] Influenza Virus Vaccine,quad Im,preserve Free 2022-05-10 00:00:00 Completed [facility] Influenza Virus Vaccine,quad Im,preserve Free 2022-05-10 00:00:00 Completed [facility] Influenza Virus Vaccine,quad Im,preserve Free 2022-05-10 00:00:00 Completed [facility] Influenza Virus Vaccine,quad Im,preserve Free 2022-05-10 00:00:00 Completed [facility] Influenza Virus Vaccine,quad Im,preserve Free 2022-05-10 00:00:00 Completed [facility] Influenza Virus Vaccine,quad Im,preserve Free 2022-05-10 00:00:00 Completed [facility] Influenza Virus Vaccine,quad Im,preserve Free 2022-05-10 00:00:00 Completed [facility] Influenza Virus Vaccine,quad Im,preserve Free 2022-05-10 00:00:00 Completed [facility] Influenza Virus Vaccine,quad Im,preserve Free 2022-05-10 00:00:00 Completed [facility] Influenza Virus Vaccine,quad Im,preserve Free 2022-05-10 00:00:00 Completed [facility] Influenza Virus Vaccine,quad Im,preserve Free 2022-05-10 00:00:00 Completed [facility] Influenza Virus Vaccine,quad Im,preserve Free 2022-05-10 00:00:00 Completed [facility] Influenza Virus Vaccine,quad Im,preserve Free 2022-05-10 00:00:00 Completed [facility] Influenza Virus Vaccine,quad Im,preserve Free 2022-05-10 00:00:00 Completed [facility] Influenza Virus Vaccine,quad Im,preserve Free 2022-05-10 00:00:00 Completed [facility] Influenza Virus Vaccine,quad Im,preserve Free 2022-05-10 00:00:00 Completed [facility] Influenza Virus Vaccine,quad Im,preserve Free 2022-05-10 00:00:00 Completed [facility] Influenza Virus Vaccine,quad Im,preserve Free 2022-05-10 00:00:00 Completed [facility] Influenza Virus Vaccine,quad Im,preserve Free 2022-05-10 00:00:00 Completed [facility] Influenza Virus Vaccine,quad Im,preserve Free 2022-05-10 00:00:00 Completed [facility] Influenza Virus Vaccine,quad Im,preserve Free 2022-05-10 00:00:00 Completed [facility] Influenza Virus Vaccine,quad Im,preserve Free 2022-05-10 00:00:00 Completed [facility] Influenza Virus Vaccine,quad Im,preserve Free 2022-05-10 00:00:00 Completed [facility] Influenza Virus Vaccine,quad Im,preserve Free 2022-05-10 00:00:00 Completed [facility] Influenza Virus Vaccine,quad Im,preserve Free 2022-05-10 00:00:00 Completed [facility] Influenza Virus Vaccine,quad Im,preserve Free 2022-05-10 00:00:00 Completed [facility] Influenza Virus Vaccine,quad Im,preserve Free 2022-05-10 00:00:00 Completed [facility] Influenza Virus Vaccine,quad Im,preserve Free 2022-05-10 00:00:00 Completed [facility] Influenza Virus Vaccine,quad Im,preserve Free 2022-05-10 00:00:00 Completed [facility] Influenza Virus Vaccine,quad Im,preserve Free 2022-05-10 00:00:00 Completed [facility] Influenza Virus Vaccine,quad Im,preserve Free 2022-05-10 00:00:00 Completed [facility] Influenza Virus Vaccine,quad Im,preserve Free 2022-05-10 00:00:00 Completed [facility] Influenza Virus Vaccine,quad Im,preserve Free 2022-05-10 00:00:00 Completed [facility] Influenza Virus Vaccine,quad Im,preserve Free 2022-05-10 00:00:00 Completed [facility] Influenza Virus Vaccine,quad Im,preserve Free 2022-05-10 00:00:00 Completed [facility] Influenza Virus Vaccine,quad Im,preserve Free 2022-05-10 00:00:00 Completed [facility] Influenza Virus Vaccine,quad Im,preserve Free 2022-05-10 00:00:00 Completed [facility] Influenza Virus Vaccine,quad Im,preserve Free 2022-05-10 00:00:00 Completed [facility] Influenza Virus Vaccine,quad Im,preserve Free 2022-05-10 00:00:00 Completed [facility] Influenza Virus Vaccine,quad Im,preserve Free 2022-05-10 00:00:00 Completed [facility] Influenza Virus Vaccine,quad Im,preserve Free 65+ 2022-05-10 00:00:00 Completed [facility] Influenza Virus Vaccine,quad Im,preserve Free 652022-05-10 00:00:00 Completed [facility] Influenza Virus Vaccine,quad Im,preserve Free 65+ 2022-05-10 00:00:00 Completed [facility] Influenza Virus Vaccine,quad Im,preserve Free 65+ 2022-05-10 00:00:00 Completed [facility] Influenza Virus Vaccine,quad Im,preserve Free 652022-05-10 00:00:00 Completed [facility] Influenza Virus Vaccine,quad Im,preserve Free 65+ 2022-05-10 00:00:00 Completed [facility] Influenza Virus Vaccine,quad Im,preserve Free 652022-05-10 00:00:00 Completed [facility] Influenza Virus Vaccine,quad Im,preserve Free 652022-05-10 00:00:00 Completed [facility] Influenza Virus Vaccine,quad Im,preserve Free 652022-05-10 00:00:00 Completed [facility] Influenza Virus Vaccine,quad Im,preserve Free 652022-05-10 00:00:00 Completed [facility] Influenza Virus Vaccine,quad Im,preserve Free 652022-05-10 00:00:00 Completed [facility] Influenza Virus Vaccine,quad Im,preserve Free 652022-05-10 00:00:00 Completed [facility] Influenza Virus Vaccine,quad Im,preserve Free 652022-05-10 00:00:00 Completed [facility] Influenza Virus Vaccine,quad Im,preserve Free 652022-05-10 00:00:00 Completed [facility] Influenza Virus Vaccine,quad Im,preserve Free 65+ (FLUAD) 2022-05-10 00:00:00 Completed [facility] Influenza Virus Vaccine,quad Im,preserve Free 65+ (FLUAD) 2022-05-10 00:00:00 Completed [facility] Influenza Virus Vaccine,quad Im,preserve Free 65+ (FLUAD) 2022-05-10 00:00:00 Completed [facility] Influenza Virus Vaccine,quad Im,preserve Free 65+ (FLUAD) 2022-05-10 00:00:00 Completed [facility] Influenza Virus Vaccine,quad Im,preserve Free 65+ (FLUAD) 2022-05-10 00:00:00 Completed [facility] Influenza Virus Vaccine,quad Im,preserve Free 65+ (FLUAD) 2022-05-10 00:00:00 Completed [facility] Influenza Virus Vaccine,quad Im,preserve Free 65+ (FLUAD) 2022-05-10 00:00:00 Completed [facility] Influenza Virus Vaccine,quad Im,preserve Free 65+ (FLUAD) 2022-05-10 00:00:00 Completed [facility] Influenza Virus Vaccine,quad Im,preserve Free 65+ (FLUAD) 2022-05-10 00:00:00 Completed [facility] Influenza Virus Vaccine,quad Im,preserve Free 65+ (FLUAD) 2022-05-10 00:00:00 Completed [facility] SARS-COV-2 COVID-19 UNSPECIFIED VACCINE 2020-09-29 00:00:00 Completed [facility] SARS-COV-2 COVID-19 UNSPECIFIED VACCINE 2020-09-29 00:00:00 Completed [facility] SARS-COV-2 COVID-19 UNSPECIFIED VACCINE 2020-09-29 00:00:00 Completed [facility] SARS-COV-2 COVID-19 UNSPECIFIED VACCINE 2020-09-29 00:00:00 Completed [facility] SARS-COV-2 COVID-19 UNSPECIFIED VACCINE 2020-09-29 00:00:00 Completed [facility] SARS-COV-2 COVID-19 UNSPECIFIED VACCINE 2020-09-29 00:00:00 Completed [facility] SARS-COV-2 COVID-19 UNSPECIFIED VACCINE 2020-09-29 00:00:00 Completed [facility] SARS-COV-2 COVID-19 UNSPECIFIED VACCINE 2020-09-29 00:00:00 Completed [facility] SARS-COV-2 COVID-19 UNSPECIFIED VACCINE 2020-09-29 00:00:00 Completed [facility] SARS-COV-2 COVID-19 UNSPECIFIED VACCINE 2020-09-29 00:00:00 Completed [facility] SARS-COV-2 COVID-19 UNSPECIFIED VACCINE 2020-09-29 00:00:00 Completed [facility] SARS-COV-2 COVID-19 UNSPECIFIED VACCINE 2020-09-29 00:00:00 Completed [facility] SARS-COV-2 COVID-19 UNSPECIFIED VACCINE 2020-09-29 00:00:00 Completed [facility] SARS-COV-2 COVID-19 UNSPECIFIED VACCINE 2020-09-29 00:00:00 Completed [facility] SARS-COV-2 COVID-19 UNSPECIFIED VACCINE 2020-09-29 00:00:00 Completed [facility] SARS-COV-2 COVID-19 UNSPECIFIED VACCINE 2020-09-29 00:00:00 Completed [facility] SARS-COV-2 COVID-19 UNSPECIFIED VACCINE 2020-09-29 00:00:00 Completed [facility] SARS-COV-2 COVID-19 UNSPECIFIED VACCINE 2020-09-29 00:00:00 Completed [facility] SARS-COV-2 COVID-19 UNSPECIFIED VACCINE 2020-09-29 00:00:00 Completed [facility] SARS-COV-2 COVID-19 UNSPECIFIED VACCINE 2020-09-29 00:00:00 Completed [facility] SARS-COV-2 COVID-19 UNSPECIFIED VACCINE 2020-09-29 00:00:00 Completed [facility] SARS-COV-2 COVID-19 UNSPECIFIED VACCINE 2020-09-29 00:00:00 Completed [facility] SARS-COV-2 COVID-19 UNSPECIFIED VACCINE 2020-09-29 00:00:00 Completed [facility] SARS-COV-2 COVID-19 UNSPECIFIED VACCINE 2020-09-29 00:00:00 Completed [facility] SARS-COV-2 COVID-19 UNSPECIFIED VACCINE 2020-09-29 00:00:00 Completed [facility] SARS-COV-2 COVID-19 UNSPECIFIED VACCINE 2020-09-29 00:00:00 Completed [facility] SARS-COV-2 COVID-19 UNSPECIFIED VACCINE 2020-09-29 00:00:00 Completed [facility] SARS-COV-2 COVID-19 UNSPECIFIED VACCINE 2020-09-29 00:00:00 Completed [facility] SARS-COV-2 COVID-19 UNSPECIFIED VACCINE 2020-09-29 00:00:00 Completed [facility] SARS-COV-2 COVID-19 UNSPECIFIED VACCINE 2020-09-29 00:00:00 Completed [facility] SARS-COV-2 COVID-19 UNSPECIFIED VACCINE 2020-09-29 00:00:00 Completed [facility] SARS-COV-2 COVID-19 UNSPECIFIED VACCINE 2020-09-29 00:00:00 Completed [facility] SARS-COV-2 COVID-19 UNSPECIFIED VACCINE 2020-09-29 00:00:00 Completed [facility] SARS-COV-2 COVID-19 UNSPECIFIED VACCINE 2020-09-29 00:00:00 Completed [facility] SARS-COV-2 COVID-19 UNSPECIFIED VACCINE 2020-09-29 00:00:00 Completed [facility] SARS-COV-2 COVID-19 UNSPECIFIED VACCINE 2020-09-29 00:00:00 Completed [facility] SARS-COV-2 COVID-19 UNSPECIFIED VACCINE 2020-09-29 00:00:00 Completed [facility] SARS-COV-2 COVID-19 UNSPECIFIED VACCINE 2020-09-29 00:00:00 Completed [facility] SARS-COV-2 COVID-19 UNSPECIFIED VACCINE 2020-09-29 00:00:00 Completed [facility] SARS-COV-2 COVID-19 UNSPECIFIED VACCINE 2020-09-29 00:00:00 Completed [facility] SARS-COV-2 COVID-19 UNSPECIFIED VACCINE 2020-09-29 00:00:00 Completed [facility] SARS-COV-2 COVID-19 UNSPECIFIED VACCINE 2020-09-29 00:00:00 Completed [facility] SARS-COV-2 COVID-19 UNSPECIFIED VACCINE 2020-09-29 00:00:00 Completed [facility] SARS-COV-2 COVID-19 UNSPECIFIED VACCINE 2020-09-29 00:00:00 Completed [facility] SARS-COV-2 COVID-19 UNSPECIFIED VACCINE 2020-09-29 00:00:00 Completed [facility] SARS-COV-2 COVID-19 UNSPECIFIED VACCINE 2020-09-29 00:00:00 Completed [facility] SARS-COV-2 COVID-19 UNSPECIFIED VACCINE 2020-09-29 00:00:00 Completed [facility] SARS-COV-2 COVID-19 UNSPECIFIED VACCINE 2020-09-29 00:00:00 Completed [facility] SARS-COV-2 COVID-19 UNSPECIFIED VACCINE 2020-09-29 00:00:00 Completed [facility] SARS-COV-2 COVID-19 UNSPECIFIED VACCINE 2020-09-29 00:00:00 Completed [facility] SARS-COV-2 COVID-19 UNSPECIFIED VACCINE 2020-09-29 00:00:00 Completed [facility] SARS-COV-2 COVID-19 UNSPECIFIED VACCINE 2020-09-29 00:00:00 Completed [facility] SARS-COV-2 COVID-19 UNSPECIFIED VACCINE 2020-09-29 00:00:00 Completed [facility] SARS-COV-2 COVID-19 UNSPECIFIED VACCINE 2020-09-29 00:00:00 Completed [facility] SARS-COV-2 COVID-19 UNSPECIFIED VACCINE 2020-09-29 00:00:00 Completed [facility] SARS-COV-2 COVID-19 UNSPECIFIED VACCINE 2020-09-29 00:00:00 Completed [facility] SARS-COV-2 COVID-19 UNSPECIFIED VACCINE 2020-09-29 00:00:00 Completed [facility] SARS-COV-2 COVID-19 UNSPECIFIED VACCINE 2020-09-29 00:00:00 Completed [facility] SARS-COV-2 COVID-19 UNSPECIFIED VACCINE 2020-09-29 00:00:00 Completed [facility] SARS-COV-2 COVID-19 UNSPECIFIED VACCINE 2020-09-29 00:00:00 Completed [facility] SARS-COV-2 COVID-19 UNSPECIFIED VACCINE 2020-09-29 00:00:00 Completed [facility] SARS-COV-2 COVID-19 UNSPECIFIED VACCINE 2020-09-29 00:00:00 Completed [facility] SARS-COV-2 COVID-19 UNSPECIFIED VACCINE 2020-09-29 00:00:00 Completed [facility] SARS-COV-2 COVID-19 UNSPECIFIED VACCINE 2020-09-29 00:00:00 Completed [facility] SARS-COV-2 COVID-19 UNSPECIFIED VACCINE 2020-09-29 00:00:00 Completed [facility] SARS-COV-2 COVID-19 UNSPECIFIED VACCINE 2020-09-29 00:00:00 Completed [facility] SARS-COV-2 COVID-19 UNSPECIFIED VACCINE 2020-09-29 00:00:00 Completed [facility] SARS-COV-2 COVID-19 UNSPECIFIED VACCINE 2020-09-29 00:00:00 Completed [facility] SARS-COV-2 COVID-19 VACCINE - (MODERNA) 2020-09-29 00:00:00 Completed [facility] SARS-COV-2 COVID-19 UNSPECIFIED VACCINE 2020-09-29 00:00:00 Completed [facility] SARS-COV-2 COVID-19 VACCINE - (MODERNA) 2020-09-29 00:00:00 Completed [facility] SARS-COV-2 COVID-19 UNSPECIFIED VACCINE 2020-09-29 00:00:00 Completed [facility] SARS-COV-2 COVID-19 VACCINE - (MODERNA) 2020-09-29 00:00:00 Completed [facility] SARS-COV-2 COVID-19 VACCINE - (MODERNA) 2020-09-29 00:00:00 Completed [facility] SARS-COV-2 COVID-19 UNSPECIFIED VACCINE 2020-09-29 00:00:00 Completed [facility] SARS-COV-2 COVID-19 VACCINE - (MODERNA) 2020-09-29 00:00:00 Completed [facility] SARS-COV-2 COVID-19 UNSPECIFIED VACCINE 2020-09-29 00:00:00 Completed [facility] SARS-COV-2 COVID-19 VACCINE - (MODERNA) 2020-09-29 00:00:00 Completed [facility] SARS-COV-2 COVID-19 UNSPECIFIED VACCINE 2020-09-29 00:00:00 Completed [facility] SARS-COV-2 COVID-19 VACCINE - (MODERNA) 2020-09-29 00:00:00 Completed [facility] SARS-COV-2 COVID-19 UNSPECIFIED VACCINE 2020-09-29 00:00:00 Completed [facility] SARS-COV-2 COVID-19 VACCINE - (MODERNA) 2020-09-29 00:00:00 Completed [facility] SARS-COV-2 COVID-19 UNSPECIFIED VACCINE 2020-09-29 00:00:00 Completed [facility] SARS-COV-2 COVID-19 VACCINE - (MODERNA) 2020-09-29 00:00:00 Completed [facility] SARS-COV-2 COVID-19 UNSPECIFIED VACCINE 2020-09-29 00:00:00 Completed [facility] SARS-COV-2 COVID-19 VACCINE - (MODERNA) 2020-09-29 00:00:00 Completed [facility] SARS-COV-2 COVID-19 UNSPECIFIED VACCINE 2020-09-29 00:00:00 Completed [facility] SARS-COV-2 COVID-19 VACCINE - (MODERNA) 2020-09-29 00:00:00 Completed [facility] SARS-COV-2 COVID-19 UNSPECIFIED VACCINE 2020-09-29 00:00:00 Completed [facility] SARS-COV-2 COVID-19 VACCINE - (MODERNA) 2020-09-29 00:00:00 Completed [facility] SARS-COV-2 COVID-19 UNSPECIFIED VACCINE 2020-09-29 00:00:00 Completed [facility] SARS-COV-2 COVID-19 VACCINE - (MODERNA) 2020-09-29 00:00:00 Completed [facility] SARS-COV-2 COVID-19 UNSPECIFIED VACCINE 2020-09-29 00:00:00 Completed [facility] SARS-COV-2 COVID-19 VACCINE - (MODERNA) 2020-09-29 00:00:00 Completed [facility] SARS-COV-2 COVID-19 UNSPECIFIED VACCINE 2020-09-29 00:00:00 Completed [facility] SARS-COV-2 COVID-19 VACCINE - (MODERNA) 2020-09-29 00:00:00 Completed [facility] SARS-COV-2 COVID-19 UNSPECIFIED VACCINE 2020-09-29 00:00:00 Completed [facility] SARS-COV-2 COVID-19 VACCINE - (MODERNA) 2020-09-29 00:00:00 Completed [facility] SARS-COV-2 COVID-19 UNSPECIFIED VACCINE 2020-09-29 00:00:00 Completed [facility] SARS-COV-2 COVID-19 VACCINE - (MODERNA) 2020-09-29 00:00:00 Completed [facility] SARS-COV-2 COVID-19 UNSPECIFIED VACCINE 2020-09-29 00:00:00 Completed [facility] SARS-COV-2 COVID-19 VACCINE - (MODERNA) 2020-09-29 00:00:00 Completed [facility] SARS-COV-2 COVID-19 UNSPECIFIED VACCINE 2020-09-29 00:00:00 Completed [facility] SARS-COV-2 COVID-19 VACCINE - (MODERNA) 2020-09-29 00:00:00 Completed [facility] SARS-COV-2 COVID-19 UNSPECIFIED VACCINE 2020-09-29 00:00:00 Completed [facility] SARS-COV-2 COVID-19 VACCINE - (MODERNA) 2020-09-29 00:00:00 Completed [facility] SARS-COV-2 COVID-19 UNSPECIFIED VACCINE 2020-09-29 00:00:00 Completed [facility] SARS-COV-2 COVID-19 VACCINE - (MODERNA) 2020-09-29 00:00:00 Completed [facility] SARS-COV-2 COVID-19 UNSPECIFIED VACCINE 2020-09-29 00:00:00 Completed [facility] SARS-COV-2 COVID-19 VACCINE - (MODERNA) 2020-09-29 00:00:00 Completed [facility] SARS-COV-2 COVID-19 UNSPECIFIED VACCINE 2020-09-29 00:00:00 Completed [facility] SARS-COV-2 COVID-19 VACCINE - (MODERNA) 2020-09-29 00:00:00 Completed [facility] SARS-COV-2 COVID-19 UNSPECIFIED VACCINE 2020-09-29 00:00:00 Completed [facility] SARS-COV-2 COVID-19 VACCINE - (MODERNA) 2020-09-29 00:00:00 Completed [facility] SARS-COV-2 COVID-19 UNSPECIFIED VACCINE 2020-09-29 00:00:00 Completed [facility] SARS-COV-2 COVID-19 VACCINE - (MODERNA) 2020-09-29 00:00:00 Completed [facility] SARS-COV-2 COVID-19 UNSPECIFIED VACCINE 2020-09-29 00:00:00 Completed [facility] SARS-COV-2 COVID-19 VACCINE - (MODERNA) 2020-09-29 00:00:00 Completed [facility] SARS-COV-2 COVID-19 UNSPECIFIED VACCINE 2020-09-29 00:00:00 Completed [facility] SARS-COV-2 COVID-19 VACCINE - (MODERNA) 2020-09-29 00:00:00 Completed [facility] SARS-COV-2 COVID-19 UNSPECIFIED VACCINE 2020-09-29 00:00:00 Completed [facility] SARS-COV-2 COVID-19 VACCINE - (MODERNA) 2020-09-29 00:00:00 Completed [facility] SARS-COV-2 COVID-19 UNSPECIFIED VACCINE 2020-09-29 00:00:00 Completed [facility] SARS-COV-2 COVID-19 VACCINE - (MODERNA) 2020-09-29 00:00:00 Completed [facility] SARS-COV-2 COVID-19 UNSPECIFIED VACCINE 2020-09-29 00:00:00 Completed [facility] SARS-COV-2 COVID-19 VACCINE - (MODERNA) 2020-09-29 00:00:00 Completed [facility] SARS-COV-2 COVID-19 UNSPECIFIED VACCINE 2020-09-29 00:00:00 Completed [facility] SARS-COV-2 COVID-19 VACCINE - (MODERNA) 2020-09-29 00:00:00 Completed [facility] SARS-COV-2 COVID-19 UNSPECIFIED VACCINE 2020-09-29 00:00:00 Completed [facility] SARS-COV-2 COVID-19 VACCINE - (MODERNA) 2020-09-29 00:00:00 Completed [facility] SARS-COV-2 COVID-19 UNSPECIFIED VACCINE 2020-09-29 00:00:00 Completed [facility] SARS-COV-2 COVID-19 VACCINE - (MODERNA) 2020-09-29 00:00:00 Completed [facility] SARS-COV-2 COVID-19 UNSPECIFIED VACCINE 2020-09-29 00:00:00 Completed [facility] SARS-COV-2 COVID-19 VACCINE - (MODERNA) 2020-09-29 00:00:00 Completed [facility] SARS-COV-2 COVID-19 UNSPECIFIED VACCINE 2020-09-29 00:00:00 Completed [facility] SARS-COV-2 COVID-19 VACCINE - (MODERNA) 2020-09-29 00:00:00 Completed [facility] SARS-COV-2 COVID-19 UNSPECIFIED VACCINE 2020-09-29 00:00:00 Completed [facility] SARS-COV-2 COVID-19 VACCINE - (MODERNA) 2020-09-29 00:00:00 Completed [facility] SARS-COV-2 COVID-19 UNSPECIFIED VACCINE 2020-09-29 00:00:00 Completed [facility] SARS-COV-2 COVID-19 VACCINE - (MODERNA) 2020-09-29 00:00:00 Completed [facility] SARS-COV-2 COVID-19 UNSPECIFIED VACCINE 2020-09-29 00:00:00 Completed [facility] SARS-COV-2 COVID-19 VACCINE - (MODERNA) 2020-09-29 00:00:00 Completed [facility] SARS-COV-2 COVID-19 UNSPECIFIED VACCINE 2020-09-29 00:00:00 Completed [facility] SARS-COV-2 COVID-19 VACCINE - (MODERNA) 2020-09-29 00:00:00 Completed [facility] SARS-COV-2 COVID-19 UNSPECIFIED VACCINE 2020-09-29 00:00:00 Completed [facility] SARS-COV-2 COVID-19 VACCINE - (MODERNA) 2020-09-29 00:00:00 Completed [facility] SARS-COV-2 COVID-19 UNSPECIFIED VACCINE 2020-09-29 00:00:00 Completed [facility] SARS-COV-2 COVID-19 VACCINE - (MODERNA) 2020-09-29 00:00:00 Completed [facility] SARS-COV-2 COVID-19 UNSPECIFIED VACCINE 2020-09-29 00:00:00 Completed [facility] SARS-COV-2 COVID-19 VACCINE - (MODERNA) 2020-09-29 00:00:00 Completed [facility] SARS-COV-2 COVID-19 UNSPECIFIED VACCINE 2020-09-29 00:00:00 Completed [facility] SARS-COV-2 COVID-19 VACCINE - (MODERNA) 2020-09-29 00:00:00 Completed [facility] SARS-COV-2 COVID-19 UNSPECIFIED VACCINE 2020-09-29 00:00:00 Completed [facility] SARS-COV-2 COVID-19 VACCINE - (MODERNA) 2020-09-29 00:00:00 Completed [facility] SARS-COV-2 COVID-19 UNSPECIFIED VACCINE 2020-09-29 00:00:00 Completed [facility] SARS-COV-2 COVID-19 VACCINE - (MODERNA) 2020-09-29 00:00:00 Completed [facility] SARS-COV-2 COVID-19 UNSPECIFIED VACCINE 2020-09-29 00:00:00 Completed [facility] SARS-COV-2 COVID-19 VACCINE - (MODERNA) 2020-09-29 00:00:00 Completed [facility] SARS-COV-2 COVID-19 UNSPECIFIED VACCINE 2020-09-29 00:00:00 Completed [facility] SARS-COV-2 COVID-19 VACCINE - (MODERNA) 2020-09-29 00:00:00 Completed [facility] SARS-COV-2 COVID-19 UNSPECIFIED VACCINE 2020-09-29 00:00:00 Completed [facility] SARS-COV-2 COVID-19 VACCINE - (MODERNA) 2020-09-29 00:00:00 Completed [facility] SARS-COV-2 COVID-19 UNSPECIFIED VACCINE 2020-09-29 00:00:00 Completed [facility] SARS-COV-2 COVID-19 VACCINE - (MODERNA) 2020-09-29 00:00:00 Completed [facility] SARS-COV-2 COVID-19 UNSPECIFIED VACCINE 2020-09-29 00:00:00 Completed [facility] SARS-COV-2 COVID-19 VACCINE - (MODERNA) 2020-09-29 00:00:00 Completed [facility] SARS-COV-2 COVID-19 UNSPECIFIED VACCINE 2020-09-29 00:00:00 Completed [facility] SARS-COV-2 COVID-19 VACCINE - (MODERNA) 2020-09-29 00:00:00 Completed [facility] SARS-COV-2 COVID-19 UNSPECIFIED VACCINE 2020-09-29 00:00:00 Completed [facility] SARS-COV-2 COVID-19 VACCINE - (MODERNA) 2020-09-29 00:00:00 Completed [facility] SARS-COV-2 COVID-19 UNSPECIFIED VACCINE 2020-09-29 00:00:00 Completed [facility] SARS-COV-2 COVID-19 VACCINE - (MODERNA) 2020-09-29 00:00:00 Completed [facility] SARS-COV-2 COVID-19 UNSPECIFIED VACCINE 2020-09-29 00:00:00 Completed [facility] SARS-COV-2 COVID-19 VACCINE - (MODERNA) 2020-09-29 00:00:00 Completed [facility] SARS-COV-2 COVID-19 UNSPECIFIED VACCINE 2020-09-29 00:00:00 Completed [facility] SARS-COV-2 COVID-19 VACCINE - (MODERNA) 2020-09-29 00:00:00 Completed [facility] SARS-COV-2 COVID-19 UNSPECIFIED VACCINE 2020-09-29 00:00:00 Completed [facility] SARS-COV-2 COVID-19 VACCINE - (MODERNA) 2020-09-29 00:00:00 Completed [facility] SARS-COV-2 COVID-19 UNSPECIFIED VACCINE 2020-09-29 00:00:00 Completed [facility] SARS-COV-2 COVID-19 VACCINE - (MODERNA) 2020-09-29 00:00:00 Completed [facility] SARS-COV-2 COVID-19 UNSPECIFIED VACCINE 2020-09-29 00:00:00 Completed [facility] SARS-COV-2 COVID-19 VACCINE - (MODERNA) 2020-09-29 00:00:00 Completed [facility] SARS-COV-2 COVID-19 UNSPECIFIED VACCINE 2020-09-29 00:00:00 Completed [facility] SARS-COV-2 COVID-19 VACCINE - (MODERNA) 2020-09-29 00:00:00 Completed [facility] SARS-COV-2 COVID-19 UNSPECIFIED VACCINE 2020-09-29 00:00:00 Completed [facility] SARS-COV-2 COVID-19 VACCINE - (MODERNA) 2020-09-29 00:00:00 Completed [facility] SARS-COV-2 COVID-19 UNSPECIFIED VACCINE 2020-09-29 00:00:00 Completed SARS-COV-2 COVID-19 VACCINE - (MODERNA) 2020-09-29 00:00:00 Completed SARS-COV-2 COVID-19 UNSPECIFIED VACCINE 2020-09-29 00:00:00 Completed SARS-COV-2 COVID-19 VACCINE - (MODERNA) 2020-09-29 00:00:00 Completed SARS-COV-2 COVID-19 UNSPECIFIED VACCINE 2020-09-29 00:00:00 Completed SARS-COV-2 COVID-19 VACCINE - (MODERNA) 2020-09-29 00:00:00 Completed SARS-COV-2 (COVID-19) vaccine, UNSPECIFIED SARS-COV-2 (COVID-19) vaccine, UNSPECIFIED 2020-09-29 00:00:00 Completed [facility] SARS-COV-2 (COVID-19) vaccine, UNSPECIFIED SARS-COV-2 (COVID-19) vaccine, UNSPECIFIED 2020-09-29 00:00:00 Completed [facility] COVID-19 (SARS-COV-2) vaccine, unspecified COVID-19 (SARS-COV-2) vaccine, unspecified 2020-09-29 00:00:00 Completed [facility] COVID-19 (SARS-COV-2) vaccine, unspecified COVID-19 (SARS-COV-2) vaccine, unspecified 2020-09-29 00:00:00 Completed [facility] SARS-COV-2 COVID-19 UNSPECIFIED VACCINE 2020-08-29 00:00:00 Completed [facility] SARS-COV-2 COVID-19 UNSPECIFIED VACCINE 2020-08-29 00:00:00 Completed [facility] SARS-COV-2 COVID-19 UNSPECIFIED VACCINE 2020-08-29 00:00:00 Completed [facility] SARS-COV-2 COVID-19 UNSPECIFIED VACCINE 2020-08-29 00:00:00 Completed [facility] SARS-COV-2 COVID-19 UNSPECIFIED VACCINE 2020-08-29 00:00:00 Completed [facility] SARS-COV-2 COVID-19 UNSPECIFIED VACCINE 2020-08-29 00:00:00 Completed [facility] SARS-COV-2 COVID-19 UNSPECIFIED VACCINE 2020-08-29 00:00:00 Completed [facility] SARS-COV-2 COVID-19 UNSPECIFIED VACCINE 2020-08-29 00:00:00 Completed [facility] SARS-COV-2 COVID-19 UNSPECIFIED VACCINE 2020-08-29 00:00:00 Completed [facility] SARS-COV-2 COVID-19 UNSPECIFIED VACCINE 2020-08-29 00:00:00 Completed [facility] SARS-COV-2 COVID-19 UNSPECIFIED VACCINE 2020-08-29 00:00:00 Completed [facility] SARS-COV-2 COVID-19 UNSPECIFIED VACCINE 2020-08-29 00:00:00 Completed [facility] SARS-COV-2 COVID-19 UNSPECIFIED VACCINE 2020-08-29 00:00:00 Completed [facility] SARS-COV-2 COVID-19 UNSPECIFIED VACCINE 2020-08-29 00:00:00 Completed [facility] SARS-COV-2 COVID-19 UNSPECIFIED VACCINE 2020-08-29 00:00:00 Completed [facility] SARS-COV-2 COVID-19 UNSPECIFIED VACCINE 2020-08-29 00:00:00 Completed [facility] SARS-COV-2 COVID-19 UNSPECIFIED VACCINE 2020-08-29 00:00:00 Completed [facility] SARS-COV-2 COVID-19 UNSPECIFIED VACCINE 2020-08-29 00:00:00 Completed [facility] SARS-COV-2 COVID-19 UNSPECIFIED VACCINE 2020-08-29 00:00:00 Completed [facility] SARS-COV-2 COVID-19 UNSPECIFIED VACCINE 2020-08-29 00:00:00 Completed [facility] SARS-COV-2 COVID-19 UNSPECIFIED VACCINE 2020-08-29 00:00:00 Completed [facility] SARS-COV-2 COVID-19 UNSPECIFIED VACCINE 2020-08-29 00:00:00 Completed [facility] SARS-COV-2 COVID-19 UNSPECIFIED VACCINE 2020-08-29 00:00:00 Completed [facility] SARS-COV-2 COVID-19 UNSPECIFIED VACCINE 2020-08-29 00:00:00 Completed [facility] SARS-COV-2 COVID-19 UNSPECIFIED VACCINE 2020-08-29 00:00:00 Completed [facility] SARS-COV-2 COVID-19 UNSPECIFIED VACCINE 2020-08-29 00:00:00 Completed [facility] SARS-COV-2 COVID-19 UNSPECIFIED VACCINE 2020-08-29 00:00:00 Completed [facility] SARS-COV-2 COVID-19 UNSPECIFIED VACCINE 2020-08-29 00:00:00 Completed [facility] SARS-COV-2 COVID-19 UNSPECIFIED VACCINE 2020-08-29 00:00:00 Completed [facility] SARS-COV-2 COVID-19 UNSPECIFIED VACCINE 2020-08-29 00:00:00 Completed [facility] SARS-COV-2 COVID-19 UNSPECIFIED VACCINE 2020-08-29 00:00:00 Completed [facility] SARS-COV-2 COVID-19 UNSPECIFIED VACCINE 2020-08-29 00:00:00 Completed [facility] SARS-COV-2 COVID-19 UNSPECIFIED VACCINE 2020-08-29 00:00:00 Completed [facility] SARS-COV-2 COVID-19 UNSPECIFIED VACCINE 2020-08-29 00:00:00 Completed [facility] SARS-COV-2 COVID-19 UNSPECIFIED VACCINE 2020-08-29 00:00:00 Completed [facility] SARS-COV-2 COVID-19 UNSPECIFIED VACCINE 2020-08-29 00:00:00 Completed [facility] SARS-COV-2 COVID-19 UNSPECIFIED VACCINE 2020-08-29 00:00:00 Completed [facility] SARS-COV-2 COVID-19 UNSPECIFIED VACCINE 2020-08-29 00:00:00 Completed [facility] SARS-COV-2 COVID-19 UNSPECIFIED VACCINE 2020-08-29 00:00:00 Completed [facility] SARS-COV-2 COVID-19 UNSPECIFIED VACCINE 2020-08-29 00:00:00 Completed [facility] SARS-COV-2 COVID-19 UNSPECIFIED VACCINE 2020-08-29 00:00:00 Completed [facility] SARS-COV-2 COVID-19 UNSPECIFIED VACCINE 2020-08-29 00:00:00 Completed [facility] SARS-COV-2 COVID-19 UNSPECIFIED VACCINE 2020-08-29 00:00:00 Completed [facility] SARS-COV-2 COVID-19 UNSPECIFIED VACCINE 2020-08-29 00:00:00 Completed [facility] SARS-COV-2 COVID-19 UNSPECIFIED VACCINE 2020-08-29 00:00:00 Completed [facility] SARS-COV-2 COVID-19 UNSPECIFIED VACCINE 2020-08-29 00:00:00 Completed [facility] SARS-COV-2 COVID-19 UNSPECIFIED VACCINE 2020-08-29 00:00:00 Completed [facility] SARS-COV-2 COVID-19 UNSPECIFIED VACCINE 2020-08-29 00:00:00 Completed [facility] SARS-COV-2 COVID-19 UNSPECIFIED VACCINE 2020-08-29 00:00:00 Completed [facility] SARS-COV-2 COVID-19 UNSPECIFIED VACCINE 2020-08-29 00:00:00 Completed [facility] SARS-COV-2 COVID-19 UNSPECIFIED VACCINE 2020-08-29 00:00:00 Completed [facility] SARS-COV-2 COVID-19 UNSPECIFIED VACCINE 2020-08-29 00:00:00 Completed [facility] SARS-COV-2 COVID-19 UNSPECIFIED VACCINE 2020-08-29 00:00:00 Completed [facility] SARS-COV-2 COVID-19 UNSPECIFIED VACCINE 2020-08-29 00:00:00 Completed [facility] SARS-COV-2 COVID-19 UNSPECIFIED VACCINE 2020-08-29 00:00:00 Completed [facility] SARS-COV-2 COVID-19 UNSPECIFIED VACCINE 2020-08-29 00:00:00 Completed [facility] SARS-COV-2 COVID-19 UNSPECIFIED VACCINE 2020-08-29 00:00:00 Completed [facility] SARS-COV-2 COVID-19 UNSPECIFIED VACCINE 2020-08-29 00:00:00 Completed [facility] SARS-COV-2 COVID-19 UNSPECIFIED VACCINE 2020-08-29 00:00:00 Completed [facility] SARS-COV-2 COVID-19 UNSPECIFIED VACCINE 2020-08-29 00:00:00 Completed [facility] SARS-COV-2 COVID-19 UNSPECIFIED VACCINE 2020-08-29 00:00:00 Completed [facility] SARS-COV-2 COVID-19 UNSPECIFIED VACCINE 2020-08-29 00:00:00 Completed [facility] SARS-COV-2 COVID-19 UNSPECIFIED VACCINE 2020-08-29 00:00:00 Completed [facility] SARS-COV-2 COVID-19 UNSPECIFIED VACCINE 2020-08-29 00:00:00 Completed [facility] SARS-COV-2 (COVID-19) vaccine, UNSPECIFIED SARS-COV-2 (COVID-19) vaccine, UNSPECIFIED 2020-08-29 00:00:00 Completed [facility] SARS-COV-2 COVID-19 UNSPECIFIED VACCINE 2020-08-29 00:00:00 Completed [facility] SARS-COV-2 COVID-19 UNSPECIFIED VACCINE 2020-08-29 00:00:00 Completed [facility] SARS-COV-2 COVID-19 UNSPECIFIED VACCINE 2020-08-29 00:00:00 Completed [facility] SARS-COV-2 COVID-19 UNSPECIFIED VACCINE 2020-08-29 00:00:00 Completed [facility] SARS-COV-2 COVID-19 VACCINE - (MODERNA) 2020-08-29 00:00:00 Completed [facility] SARS-COV-2 COVID-19 UNSPECIFIED VACCINE 2020-08-29 00:00:00 Completed [facility] SARS-COV-2 COVID-19 VACCINE - (MODERNA) 2020-08-29 00:00:00 Completed [facility] SARS-COV-2 COVID-19 UNSPECIFIED VACCINE 2020-08-29 00:00:00 Completed [facility] SARS-COV-2 COVID-19 VACCINE - (MODERNA) 2020-08-29 00:00:00 Completed [facility] SARS-COV-2 COVID-19 VACCINE - (MODERNA) 2020-08-29 00:00:00 Completed [facility] SARS-COV-2 (COVID-19) vaccine, UNSPECIFIED SARS-COV-2 (COVID-19) vaccine, UNSPECIFIED 2020-08-29 00:00:00 Completed [facility] SARS-COV-2 COVID-19 UNSPECIFIED VACCINE 2020-08-29 00:00:00 Completed [facility] SARS-COV-2 COVID-19 VACCINE - (MODERNA) 2020-08-29 00:00:00 Completed [facility] SARS-COV-2 COVID-19 UNSPECIFIED VACCINE 2020-08-29 00:00:00 Completed [facility] SARS-COV-2 COVID-19 VACCINE - (MODERNA) 2020-08-29 00:00:00 Completed [facility] SARS-COV-2 COVID-19 UNSPECIFIED VACCINE 2020-08-29 00:00:00 Completed [facility] SARS-COV-2 COVID-19 VACCINE - (MODERNA) 2020-08-29 00:00:00 Completed [facility] SARS-COV-2 COVID-19 UNSPECIFIED VACCINE 2020-08-29 00:00:00 Completed [facility] SARS-COV-2 COVID-19 VACCINE - (MODERNA) 2020-08-29 00:00:00 Completed [facility] SARS-COV-2 COVID-19 UNSPECIFIED VACCINE 2020-08-29 00:00:00 Completed [facility] SARS-COV-2 COVID-19 VACCINE - (MODERNA) 2020-08-29 00:00:00 Completed [facility] COVID-19 (SARS-COV-2) vaccine, unspecified COVID-19 (SARS-COV-2) vaccine, unspecified 2020-08-29 00:00:00 Completed [facility] SARS-COV-2 COVID-19 UNSPECIFIED VACCINE 2020-08-29 00:00:00 Completed [facility] SARS-COV-2 COVID-19 VACCINE - (MODERNA) 2020-08-29 00:00:00 Completed [facility] SARS-COV-2 COVID-19 UNSPECIFIED VACCINE 2020-08-29 00:00:00 Completed [facility] SARS-COV-2 COVID-19 VACCINE - (MODERNA) 2020-08-29 00:00:00 Completed [facility] SARS-COV-2 COVID-19 UNSPECIFIED VACCINE 2020-08-29 00:00:00 Completed [facility] SARS-COV-2 COVID-19 VACCINE - (MODERNA) 2020-08-29 00:00:00 Completed [facility] SARS-COV-2 COVID-19 UNSPECIFIED VACCINE 2020-08-29 00:00:00 Completed [facility] SARS-COV-2 COVID-19 VACCINE - (MODERNA) 2020-08-29 00:00:00 Completed [facility] SARS-COV-2 COVID-19 UNSPECIFIED VACCINE 2020-08-29 00:00:00 Completed [facility] SARS-COV-2 COVID-19 VACCINE - (MODERNA) 2020-08-29 00:00:00 Completed [facility] COVID-19 (SARS-COV-2) vaccine, unspecified COVID-19 (SARS-COV-2) vaccine, unspecified 2020-08-29 00:00:00 Completed [facility] SARS-COV-2 COVID-19 UNSPECIFIED VACCINE 2020-08-29 00:00:00 Completed [facility] SARS-COV-2 COVID-19 VACCINE - (MODERNA) 2020-08-29 00:00:00 Completed [facility] SARS-COV-2 COVID-19 UNSPECIFIED VACCINE 2020-08-29 00:00:00 Completed [facility] SARS-COV-2 COVID-19 VACCINE - (MODERNA) 2020-08-29 00:00:00 Completed [facility] SARS-COV-2 COVID-19 UNSPECIFIED VACCINE 2020-08-29 00:00:00 Completed [facility] SARS-COV-2 COVID-19 VACCINE - (MODERNA) 2020-08-29 00:00:00 Completed [facility] SARS-COV-2 COVID-19 UNSPECIFIED VACCINE 2020-08-29 00:00:00 Completed [facility] SARS-COV-2 COVID-19 VACCINE - (MODERNA) 2020-08-29 00:00:00 Completed [facility] SARS-COV-2 COVID-19 UNSPECIFIED VACCINE 2020-08-29 00:00:00 Completed [facility] SARS-COV-2 COVID-19 VACCINE - (MODERNA) 2020-08-29 00:00:00 Completed [facility] SARS-COV-2 COVID-19 UNSPECIFIED VACCINE 2020-08-29 00:00:00 Completed [facility] SARS-COV-2 COVID-19 VACCINE - (MODERNA) 2020-08-29 00:00:00 Completed [facility] SARS-COV-2 COVID-19 UNSPECIFIED VACCINE 2020-08-29 00:00:00 Completed [facility] SARS-COV-2 COVID-19 VACCINE - (MODERNA) 2020-08-29 00:00:00 Completed [facility] SARS-COV-2 COVID-19 UNSPECIFIED VACCINE 2020-08-29 00:00:00 Completed [facility] SARS-COV-2 COVID-19 VACCINE - (MODERNA) 2020-08-29 00:00:00 Completed [facility] SARS-COV-2 COVID-19 UNSPECIFIED VACCINE 2020-08-29 00:00:00 Completed [facility] SARS-COV-2 COVID-19 VACCINE - (MODERNA) 2020-08-29 00:00:00 Completed [facility] SARS-COV-2 COVID-19 UNSPECIFIED VACCINE 2020-08-29 00:00:00 Completed [facility] SARS-COV-2 COVID-19 VACCINE - (MODERNA) 2020-08-29 00:00:00 Completed [facility] SARS-COV-2 COVID-19 UNSPECIFIED VACCINE 2020-08-29 00:00:00 Completed [facility] SARS-COV-2 COVID-19 VACCINE - (MODERNA) 2020-08-29 00:00:00 Completed [facility] SARS-COV-2 COVID-19 UNSPECIFIED VACCINE 2020-08-29 00:00:00 Completed [facility] SARS-COV-2 COVID-19 VACCINE - (MODERNA) 2020-08-29 00:00:00 Completed [facility] SARS-COV-2 COVID-19 UNSPECIFIED VACCINE 2020-08-29 00:00:00 Completed [facility] SARS-COV-2 COVID-19 VACCINE - (MODERNA) 2020-08-29 00:00:00 Completed [facility] SARS-COV-2 COVID-19 UNSPECIFIED VACCINE 2020-08-29 00:00:00 Completed [facility] SARS-COV-2 COVID-19 VACCINE - (MODERNA) 2020-08-29 00:00:00 Completed [facility] SARS-COV-2 COVID-19 UNSPECIFIED VACCINE 2020-08-29 00:00:00 Completed [facility] SARS-COV-2 COVID-19 VACCINE - (MODERNA) 2020-08-29 00:00:00 Completed [facility] SARS-COV-2 COVID-19 UNSPECIFIED VACCINE 2020-08-29 00:00:00 Completed [facility] SARS-COV-2 COVID-19 VACCINE - (MODERNA) 2020-08-29 00:00:00 Completed [facility] SARS-COV-2 COVID-19 UNSPECIFIED VACCINE 2020-08-29 00:00:00 Completed [facility] SARS-COV-2 COVID-19 VACCINE - (MODERNA) 2020-08-29 00:00:00 Completed [facility] SARS-COV-2 COVID-19 UNSPECIFIED VACCINE 2020-08-29 00:00:00 Completed [facility] SARS-COV-2 COVID-19 VACCINE - (MODERNA) 2020-08-29 00:00:00 Completed [facility] SARS-COV-2 COVID-19 UNSPECIFIED VACCINE 2020-08-29 00:00:00 Completed [facility] SARS-COV-2 COVID-19 VACCINE - (MODERNA) 2020-08-29 00:00:00 Completed [facility] SARS-COV-2 COVID-19 UNSPECIFIED VACCINE 2020-08-29 00:00:00 Completed [facility] SARS-COV-2 COVID-19 VACCINE - (MODERNA) 2020-08-29 00:00:00 Completed [facility] SARS-COV-2 COVID-19 UNSPECIFIED VACCINE 2020-08-29 00:00:00 Completed [facility] SARS-COV-2 COVID-19 VACCINE - (MODERNA) 2020-08-29 00:00:00 Completed [facility] SARS-COV-2 COVID-19 UNSPECIFIED VACCINE 2020-08-29 00:00:00 Completed [facility] SARS-COV-2 COVID-19 VACCINE - (MODERNA) 2020-08-29 00:00:00 Completed [facility] SARS-COV-2 COVID-19 UNSPECIFIED VACCINE 2020-08-29 00:00:00 Completed [facility] SARS-COV-2 COVID-19 VACCINE - (MODERNA) 2020-08-29 00:00:00 Completed [facility] SARS-COV-2 COVID-19 UNSPECIFIED VACCINE 2020-08-29 00:00:00 Completed [facility] SARS-COV-2 COVID-19 VACCINE - (MODERNA) 2020-08-29 00:00:00 Completed [facility] SARS-COV-2 COVID-19 UNSPECIFIED VACCINE 2020-08-29 00:00:00 Completed [facility] SARS-COV-2 COVID-19 VACCINE - (MODERNA) 2020-08-29 00:00:00 Completed [facility] SARS-COV-2 COVID-19 UNSPECIFIED VACCINE 2020-08-29 00:00:00 Completed [facility] SARS-COV-2 COVID-19 VACCINE - (MODERNA) 2020-08-29 00:00:00 Completed [facility] SARS-COV-2 COVID-19 UNSPECIFIED VACCINE 2020-08-29 00:00:00 Completed [facility] SARS-COV-2 COVID-19 VACCINE - (MODERNA) 2020-08-29 00:00:00 Completed [facility] SARS-COV-2 COVID-19 UNSPECIFIED VACCINE 2020-08-29 00:00:00 Completed [facility] SARS-COV-2 COVID-19 VACCINE - (MODERNA) 2020-08-29 00:00:00 Completed [facility] SARS-COV-2 COVID-19 UNSPECIFIED VACCINE 2020-08-29 00:00:00 Completed [facility] SARS-COV-2 COVID-19 VACCINE - (MODERNA) 2020-08-29 00:00:00 Completed [facility] SARS-COV-2 COVID-19 UNSPECIFIED VACCINE 2020-08-29 00:00:00 Completed [facility] SARS-COV-2 COVID-19 VACCINE - (MODERNA) 2020-08-29 00:00:00 Completed [facility] SARS-COV-2 COVID-19 UNSPECIFIED VACCINE 2020-08-29 00:00:00 Completed [facility] SARS-COV-2 COVID-19 VACCINE - (MODERNA) 2020-08-29 00:00:00 Completed [facility] SARS-COV-2 COVID-19 UNSPECIFIED VACCINE 2020-08-29 00:00:00 Completed [facility] SARS-COV-2 COVID-19 VACCINE - (MODERNA) 2020-08-29 00:00:00 Completed [facility] SARS-COV-2 COVID-19 UNSPECIFIED VACCINE 2020-08-29 00:00:00 Completed [facility] SARS-COV-2 COVID-19 VACCINE - (MODERNA) 2020-08-29 00:00:00 Completed [facility] SARS-COV-2 COVID-19 UNSPECIFIED VACCINE 2020-08-29 00:00:00 Completed [facility] SARS-COV-2 COVID-19 VACCINE - (MODERNA) 2020-08-29 00:00:00 Completed [facility] SARS-COV-2 COVID-19 UNSPECIFIED VACCINE 2020-08-29 00:00:00 Completed [facility] SARS-COV-2 COVID-19 VACCINE - (MODERNA) 2020-08-29 00:00:00 Completed [facility] SARS-COV-2 COVID-19 UNSPECIFIED VACCINE 2020-08-29 00:00:00 Completed [facility] SARS-COV-2 COVID-19 VACCINE - (MODERNA) 2020-08-29 00:00:00 Completed [facility] SARS-COV-2 COVID-19 UNSPECIFIED VACCINE 2020-08-29 00:00:00 Completed [facility] SARS-COV-2 COVID-19 VACCINE - (MODERNA) 2020-08-29 00:00:00 Completed [facility] SARS-COV-2 COVID-19 UNSPECIFIED VACCINE 2020-08-29 00:00:00 Completed [facility] SARS-COV-2 COVID-19 VACCINE - (MODERNA) 2020-08-29 00:00:00 Completed [facility] SARS-COV-2 COVID-19 UNSPECIFIED VACCINE 2020-08-29 00:00:00 Completed [facility] SARS-COV-2 COVID-19 VACCINE - (MODERNA) 2020-08-29 00:00:00 Completed [facility] SARS-COV-2 COVID-19 UNSPECIFIED VACCINE 2020-08-29 00:00:00 Completed [facility] SARS-COV-2 COVID-19 VACCINE - (MODERNA) 2020-08-29 00:00:00 Completed [facility] SARS-COV-2 COVID-19 UNSPECIFIED VACCINE 2020-08-29 00:00:00 Completed [facility] SARS-COV-2 COVID-19 VACCINE - (MODERNA) 2020-08-29 00:00:00 Completed [facility] SARS-COV-2 COVID-19 UNSPECIFIED VACCINE 2020-08-29 00:00:00 Completed [facility] SARS-COV-2 COVID-19 VACCINE - (MODERNA) 2020-08-29 00:00:00 Completed [facility] SARS-COV-2 COVID-19 UNSPECIFIED VACCINE 2020-08-29 00:00:00 Completed [facility] SARS-COV-2 COVID-19 VACCINE - (MODERNA) 2020-08-29 00:00:00 Completed [facility] SARS-COV-2 COVID-19 UNSPECIFIED VACCINE 2020-08-29 00:00:00 Completed [facility] SARS-COV-2 COVID-19 VACCINE - (MODERNA) 2020-08-29 00:00:00 Completed [facility] SARS-COV-2 COVID-19 UNSPECIFIED VACCINE 2020-08-29 00:00:00 Completed [facility] SARS-COV-2 COVID-19 VACCINE - (MODERNA) 2020-08-29 00:00:00 Completed [facility] SARS-COV-2 COVID-19 UNSPECIFIED VACCINE 2020-08-29 00:00:00 Completed [facility] SARS-COV-2 COVID-19 VACCINE - (MODERNA) 2020-08-29 00:00:00 Completed [facility] SARS-COV-2 COVID-19 UNSPECIFIED VACCINE 2020-08-29 00:00:00 Completed [facility] SARS-COV-2 COVID-19 VACCINE - (MODERNA) 2020-08-29 00:00:00 Completed [facility] SARS-COV-2 COVID-19 UNSPECIFIED VACCINE 2020-08-29 00:00:00 Completed SARS-COV-2 COVID-19 VACCINE - (MODERNA) 2020-08-29 00:00:00 Completed [facility] SARS-COV-2 COVID-19 UNSPECIFIED VACCINE 2020-08-29 00:00:00 Completed SARS-COV-2 COVID-19 VACCINE - (MODERNA) 2020-08-29 00:00:00 Completed [facility] Influenza, injectable, MDCK, preservative free, quadrivalent Influenza, injectable, MDCK, preservative free, quadrivalent 2020-03-27 12:37:23 Completed [facility] Influenza, injectable, MDCK, preservative free, quadrivalent Influenza, injectable, MDCK, preservative free, quadrivalent 2020-03-27 12:37:23 Completed [facility] Influenza, injectable, MDCK, preservative free, quadrivalent Influenza, injectable, MDCK, preservative free, quadrivalent 2020-03-27 12:37:23 Completed [facility] Influenza, injectable, MDCK, preservative free, quadrivalent Influenza, injectable, MDCK, preservative free, quadrivalent 2020-03-27 12:37:23 Completed [facility] Influenza, injectable, MDCK, preservative free, quadrivalent Influenza, injectable, MDCK, preservative free, quadrivalent 2020-03-27 12:37:23 Completed [facility] Influenza Virus Vaccine 2020-03-27 00:00:00 Completed [facility] Influenza Virus Vaccine 2020-03-27 00:00:00 Completed [facility] Influenza Virus Vaccine 2020-03-27 00:00:00 Completed [facility] Influenza Virus Vaccine 2020-03-27 00:00:00 Completed [facility] Influenza Virus Vaccine 2020-03-27 00:00:00 Completed [facility] Influenza Virus Vaccine 2020-03-27 00:00:00 Completed [facility] Influenza Virus Vaccine 2020-03-27 00:00:00 Completed [facility] Influenza Virus Vaccine 2020-03-27 00:00:00 Completed [facility] Influenza Virus Vaccine 2020-03-27 00:00:00 Completed [facility] Influenza Virus Vaccine 2020-03-27 00:00:00 Completed [facility] Influenza Virus Vaccine 2020-03-27 00:00:00 Completed [facility] Influenza Virus Vaccine 2020-03-27 00:00:00 Completed [facility] Influenza Virus Vaccine 2020-03-27 00:00:00 Completed [facility] Influenza Virus Vaccine 2020-03-27 00:00:00 Completed [facility] Influenza Virus Vaccine 2020-03-27 00:00:00 Completed [facility] Influenza Virus Vaccine 2020-03-27 00:00:00 Completed [facility] Influenza Virus Vaccine 2020-03-27 00:00:00 Completed [facility] Influenza Virus Vaccine 2020-03-27 00:00:00 Completed [facility] Influenza Virus Vaccine 2020-03-27 00:00:00 Completed [facility] Influenza Virus Vaccine 2020-03-27 00:00:00 Completed [facility] Influenza Virus Vaccine 2020-03-27 00:00:00 Completed [facility] Influenza Virus Vaccine 2020-03-27 00:00:00 Completed [facility] Influenza Virus Vaccine 2020-03-27 00:00:00 Completed [facility] Influenza Virus Vaccine 2020-03-27 00:00:00 Completed [facility] Influenza Virus Vaccine 2020-03-27 00:00:00 Completed [facility] Influenza Virus Vaccine 2020-03-27 00:00:00 Completed [facility] Influenza Virus Vaccine 2020-03-27 00:00:00 Completed [facility] Influenza Virus Vaccine 2020-03-27 00:00:00 Completed [facility] Influenza Virus Vaccine 2020-03-27 00:00:00 Completed [facility] Influenza Virus Vaccine 2020-03-27 00:00:00 Completed [facility] Influenza Virus Vaccine 2020-03-27 00:00:00 Completed [facility] Influenza Virus Vaccine 2020-03-27 00:00:00 Completed [facility] Influenza Virus Vaccine 2020-03-27 00:00:00 Completed [facility] Influenza Virus Vaccine 2020-03-27 00:00:00 Completed [facility] Influenza Virus Vaccine 2020-03-27 00:00:00 Completed [facility] Influenza Virus Vaccine 2020-03-27 00:00:00 Completed [facility] Influenza Virus Vaccine 2020-03-27 00:00:00 Completed [facility] Influenza Virus Vaccine 2020-03-27 00:00:00 Completed [facility] Influenza Virus Vaccine 2020-03-27 00:00:00 Completed [facility] Influenza Virus Vaccine 2020-03-27 00:00:00 Completed [facility] Influenza Virus Vaccine 2020-03-27 00:00:00 Completed [facility] Influenza Virus Vaccine 2020-03-27 00:00:00 Completed [facility] Influenza Virus Vaccine 2020-03-27 00:00:00 Completed [facility] Influenza Virus Vaccine 2020-03-27 00:00:00 Completed [facility] Influenza Virus Vaccine 2020-03-27 00:00:00 Completed [facility] Influenza Virus Vaccine 2020-03-27 00:00:00 Completed [facility] Influenza Virus Vaccine 2020-03-27 00:00:00 Completed [facility] Influenza Virus Vaccine 2020-03-27 00:00:00 Completed [facility] Influenza Virus Vaccine 2020-03-27 00:00:00 Completed [facility] Influenza Virus Vaccine 2020-03-27 00:00:00 Completed [facility] Influenza Virus Vaccine 2020-03-27 00:00:00 Completed [facility] Influenza Virus Vaccine 2020-03-27 00:00:00 Completed [facility] Influenza Virus Vaccine 2020-03-27 00:00:00 Completed [facility] Influenza Virus Vaccine 2020-03-27 00:00:00 Completed [facility] Influenza Virus Vaccine 2020-03-27 00:00:00 Completed [facility] Influenza Virus Vaccine 2020-03-27 00:00:00 Completed [facility] Influenza Virus Vaccine 2020-03-27 00:00:00 Completed [facility] Influenza Virus Vaccine 2020-03-27 00:00:00 Completed [facility] Influenza Virus Vaccine 2020-03-27 00:00:00 Completed [facility] Influenza Virus Vaccine 2020-03-27 00:00:00 Completed [facility] Influenza Virus Vaccine 2020-03-27 00:00:00 Completed [facility] Influenza Virus Vaccine 2020-03-27 00:00:00 Completed [facility] Influenza Virus Vaccine 2020-03-27 00:00:00 Completed [facility] Influenza Virus Vaccine 2020-03-27 00:00:00 Completed [facility] Influenza Virus Vaccine 2020-03-27 00:00:00 Completed [facility] Influenza Virus Vaccine 2020-03-27 00:00:00 Completed [facility] Influenza Virus Vaccine 2020-03-27 00:00:00 Completed [facility] Influenza Virus Vaccine 2020-03-27 00:00:00 Completed [facility] Influenza Virus Vaccine 2020-03-27 00:00:00 Completed [facility] Influenza Virus Vaccine 2020-03-27 00:00:00 Completed [facility] Influenza Virus Vaccine 2020-03-27 00:00:00 Completed [facility] Influenza Virus Vaccine 2020-03-27 00:00:00 Completed [facility] Influenza Virus Vaccine 2020-03-27 00:00:00 Completed [facility] Influenza Virus Vaccine 2020-03-27 00:00:00 Completed [facility] Influenza Virus Vaccine 2020-03-27 00:00:00 Completed [facility] Influenza Virus Vaccine 2020-03-27 00:00:00 Completed [facility] Influenza Virus Vaccine 2020-03-27 00:00:00 Completed [facility] Influenza Virus Vaccine 2020-03-27 00:00:00 Completed [facility] Influenza Virus Vaccine 2020-03-27 00:00:00 Completed [facility] Influenza Virus Vaccine 2020-03-27 00:00:00 Completed [facility] Influenza Virus Vaccine 2020-03-27 00:00:00 Completed [facility] Influenza Virus Vaccine 2020-03-27 00:00:00 Completed [facility] Influenza Virus Vaccine 2020-03-27 00:00:00 Completed [facility] Influenza Virus Vaccine 2020-03-27 00:00:00 Completed [facility] Influenza Virus Vaccine 2020-03-27 00:00:00 Completed [facility] Influenza Virus Vaccine 2020-03-27 00:00:00 Completed [facility] Influenza Virus Vaccine 2020-03-27 00:00:00 Completed [facility] Influenza Virus Vaccine 2020-03-27 00:00:00 Completed [facility] Influenza Virus Vaccine 2020-03-27 00:00:00 Completed [facility] Influenza Virus Vaccine 2020-03-27 00:00:00 Completed [facility] Influenza Virus Vaccine 2020-03-27 00:00:00 Completed [facility] Influenza Virus Vaccine 2020-03-27 00:00:00 Completed [facility] Influenza Virus Vaccine 2020-03-27 00:00:00 Completed [facility] Influenza Virus Vaccine 2020-03-27 00:00:00 Completed [facility] Influenza Virus Vaccine 2020-03-27 00:00:00 Completed [facility] Influenza Virus Vaccine 2020-03-27 00:00:00 Completed [facility] Influenza Virus Vaccine 2020-03-27 00:00:00 Completed [facility] Influenza Virus Vaccine 2020-03-27 00:00:00 Completed [facility] Influenza Virus Vaccine 2020-03-27 00:00:00 Completed [facility] Influenza Virus Vaccine 2020-03-27 00:00:00 Completed [facility] Influenza Virus Vaccine 2020-03-27 00:00:00 Completed [facility] Influenza Virus Vaccine 2020-03-27 00:00:00 Completed [facility] Influenza Virus Vaccine 2020-03-27 00:00:00 Completed [facility] Influenza Virus Vaccine 2020-03-27 00:00:00 Completed [facility] Influenza Virus Vaccine 2020-03-27 00:00:00 Completed [facility] Influenza Virus Vaccine 2020-03-27 00:00:00 Completed [facility] Influenza Virus Vaccine 2020-03-27 00:00:00 Completed [facility] Influenza Virus Vaccine 2020-03-27 00:00:00 Completed [facility] Influenza Virus Vaccine 2020-03-27 00:00:00 Completed [facility] Influenza Virus Vaccine 2020-03-27 00:00:00 Completed [facility] Influenza Virus Vaccine 2020-03-27 00:00:00 Completed [facility] Influenza Virus Vaccine 2020-03-27 00:00:00 Completed [facility] Influenza Virus Vaccine 2020-03-27 00:00:00 Completed [facility] Influenza Virus Vaccine 2020-03-27 00:00:00 Completed [facility] Influenza Virus Vaccine 2020-03-27 00:00:00 Completed [facility] Influenza Virus Vaccine 2020-03-27 00:00:00 Completed [facility] Influenza Virus Vaccine 2020-03-27 00:00:00 Completed [facility] Influenza Virus Vaccine 2020-03-27 00:00:00 Completed [facility] Influenza Virus Vaccine 2020-03-27 00:00:00 Completed [facility] Influenza Virus Vaccine 2020-03-27 00:00:00 Completed [facility] Influenza Virus Vaccine 2020-03-27 00:00:00 Completed [facility] Influenza Virus Vaccine 2020-03-27 00:00:00 Completed [facility] Influenza Virus Vaccine 2020-03-27 00:00:00 Completed [facility] Influenza Virus Vaccine 2020-03-27 00:00:00 Completed [facility] Influenza Virus Vaccine 2020-03-27 00:00:00 Completed [facility] Influenza Virus Vaccine 2020-03-27 00:00:00 Completed [facility] Influenza Virus Vaccine 2020-03-27 00:00:00 Completed [facility] Influenza Virus Vaccine 2020-03-27 00:00:00 Completed [facility] Influenza Virus Vaccine 2020-03-27 00:00:00 Completed [facility] Influenza High Dose 2019-04-15 00:00:00 Completed [facility] Influenza Virus Vaccine 2019-04-15 00:00:00 Completed [facility] Influenza High Dose 2019-04-15 00:00:00 Completed [facility] Influenza Virus Vaccine 2019-04-15 00:00:00 Completed [facility] Influenza High Dose 2019-04-15 00:00:00 Completed [facility] Influenza Virus Vaccine 2019-04-15 00:00:00 Completed [facility] Influenza High Dose 2019-04-15 00:00:00 Completed [facility] Influenza Virus Vaccine 2019-04-15 00:00:00 Completed [facility] Influenza High Dose 2019-04-15 00:00:00 Completed [facility] Influenza Virus Vaccine 2019-04-15 00:00:00 Completed [facility] Influenza High Dose 2019-04-15 00:00:00 Completed [facility] Influenza Virus Vaccine 2019-04-15 00:00:00 Completed [facility] Influenza High Dose 2019-04-15 00:00:00 Completed [facility] Influenza Virus Vaccine 2019-04-15 00:00:00 Completed [facility] Influenza High Dose 2019-04-15 00:00:00 Completed [facility] Influenza Virus Vaccine 2019-04-15 00:00:00 Completed [facility] Influenza High Dose 2019-04-15 00:00:00 Completed [facility] Influenza Virus Vaccine 2019-04-15 00:00:00 Completed [facility] Influenza High Dose 2019-04-15 00:00:00 Completed [facility] Influenza Virus Vaccine 2019-04-15 00:00:00 Completed [facility] Influenza High Dose 2019-04-15 00:00:00 Completed [facility] Influenza Virus Vaccine 2019-04-15 00:00:00 Completed [facility] Influenza High Dose 2019-04-15 00:00:00 Completed [facility] Influenza Virus Vaccine 2019-04-15 00:00:00 Completed [facility] Influenza High Dose 2019-04-15 00:00:00 Completed [facility] Influenza Virus Vaccine 2019-04-15 00:00:00 Completed [facility] Influenza High Dose 2019-04-15 00:00:00 Completed [facility] Influenza Virus Vaccine 2019-04-15 00:00:00 Completed [facility] Influenza High Dose 2019-04-15 00:00:00 Completed [facility] Influenza Virus Vaccine 2019-04-15 00:00:00 Completed [facility] Influenza High Dose 2019-04-15 00:00:00 Completed [facility] Influenza Virus Vaccine 2019-04-15 00:00:00 Completed [facility] Influenza High Dose 2019-04-15 00:00:00 Completed [facility] Influenza Virus Vaccine 2019-04-15 00:00:00 Completed [facility] Influenza High Dose 2019-04-15 00:00:00 Completed [facility] Influenza Virus Vaccine 2019-04-15 00:00:00 Completed [facility] Influenza High Dose 2019-04-15 00:00:00 Completed [facility] Influenza Virus Vaccine 2019-04-15 00:00:00 Completed [facility] Influenza High Dose 2019-04-15 00:00:00 Completed [facility] Influenza Virus Vaccine 2019-04-15 00:00:00 Completed [facility] Influenza High Dose 2019-04-15 00:00:00 Completed [facility] Influenza Virus Vaccine 2019-04-15 00:00:00 Completed [facility] Influenza High Dose 2019-04-15 00:00:00 Completed [facility] Influenza Virus Vaccine 2019-04-15 00:00:00 Completed [facility] Influenza High Dose 2019-04-15 00:00:00 Completed [facility] Influenza Virus Vaccine 2019-04-15 00:00:00 Completed [facility] Influenza High Dose 2019-04-15 00:00:00 Completed [facility] Influenza Virus Vaccine 2019-04-15 00:00:00 Completed [facility] Influenza High Dose 2019-04-15 00:00:00 Completed [facility] Influenza Virus Vaccine 2019-04-15 00:00:00 Completed [facility] Influenza High Dose 2019-04-15 00:00:00 Completed [facility] Influenza Virus Vaccine 2019-04-15 00:00:00 Completed [facility] Influenza High Dose 2019-04-15 00:00:00 Completed [facility] Influenza Virus Vaccine 2019-04-15 00:00:00 Completed [facility] Influenza High Dose 2019-04-15 00:00:00 Completed [facility] Influenza Virus Vaccine 2019-04-15 00:00:00 Completed [facility] Influenza High Dose 2019-04-15 00:00:00 Completed [facility] Influenza Virus Vaccine 2019-04-15 00:00:00 Completed [facility] Influenza High Dose 2019-04-15 00:00:00 Completed [facility] Influenza Virus Vaccine 2019-04-15 00:00:00 Completed [facility] Influenza High Dose 2019-04-15 00:00:00 Completed [facility] Influenza Virus Vaccine 2019-04-15 00:00:00 Completed [facility] Influenza High Dose 2019-04-15 00:00:00 Completed [facility] Influenza Virus Vaccine 2019-04-15 00:00:00 Completed [facility] Influenza High Dose 2019-04-15 00:00:00 Completed [facility] Influenza Virus Vaccine 2019-04-15 00:00:00 Completed [facility] Influenza High Dose 2019-04-15 00:00:00 Completed [facility] Influenza Virus Vaccine 2019-04-15 00:00:00 Completed [facility] Influenza High Dose 2019-04-15 00:00:00 Completed [facility] Influenza Virus Vaccine 2019-04-15 00:00:00 Completed [facility] Influenza High Dose 2019-04-15 00:00:00 Completed [facility] Influenza Virus Vaccine 2019-04-15 00:00:00 Completed [facility] Influenza High Dose 2019-04-15 00:00:00 Completed [facility] Influenza Virus Vaccine 2019-04-15 00:00:00 Completed [facility] Influenza High Dose 2019-04-15 00:00:00 Completed [facility] Influenza Virus Vaccine 2019-04-15 00:00:00 Completed [facility] Influenza High Dose 2019-04-15 00:00:00 Completed [facility] Influenza Virus Vaccine 2019-04-15 00:00:00 Completed [facility] Influenza High Dose 2019-04-15 00:00:00 Completed [facility] Influenza Virus Vaccine 2019-04-15 00:00:00 Completed [facility] Influenza High Dose 2019-04-15 00:00:00 Completed [facility] Influenza Virus Vaccine 2019-04-15 00:00:00 Completed [facility] Influenza High Dose 2019-04-15 00:00:00 Completed [facility] Influenza Virus Vaccine 2019-04-15 00:00:00 Completed [facility] Influenza High Dose 2019-04-15 00:00:00 Completed [facility] Influenza Virus Vaccine 2019-04-15 00:00:00 Completed [facility] Influenza High Dose 2019-04-15 00:00:00 Completed [facility] Influenza Virus Vaccine 2019-04-15 00:00:00 Completed [facility] Influenza High Dose 2019-04-15 00:00:00 Completed [facility] Influenza Virus Vaccine 2019-04-15 00:00:00 Completed [facility] Influenza High Dose 2019-04-15 00:00:00 Completed [facility] Influenza Virus Vaccine 2019-04-15 00:00:00 Completed [facility] Influenza High Dose 2019-04-15 00:00:00 Completed [facility] Influenza Virus Vaccine 2019-04-15 00:00:00 Completed [facility] Influenza High Dose 2019-04-15 00:00:00 Completed [facility] Influenza Virus Vaccine 2019-04-15 00:00:00 Completed [facility] Influenza High Dose 2019-04-15 00:00:00 Completed [facility] Influenza Virus Vaccine 2019-04-15 00:00:00 Completed [facility] Influenza High Dose 2019-04-15 00:00:00 Completed [facility] Influenza Virus Vaccine 2019-04-15 00:00:00 Completed [facility] Influenza High Dose 2019-04-15 00:00:00 Completed [facility] Influenza Virus Vaccine 2019-04-15 00:00:00 Completed [facility] Influenza High Dose 2019-04-15 00:00:00 Completed [facility] Influenza Virus Vaccine 2019-04-15 00:00:00 Completed [facility] Influenza High Dose 2019-04-15 00:00:00 Completed [facility] Influenza Virus Vaccine 2019-04-15 00:00:00 Completed [facility] Influenza High Dose 2019-04-15 00:00:00 Completed [facility] Influenza Virus Vaccine 2019-04-15 00:00:00 Completed [facility] Influenza High Dose 2019-04-15 00:00:00 Completed [facility] Influenza Virus Vaccine 2019-04-15 00:00:00 Completed [facility] Influenza High Dose 2019-04-15 00:00:00 Completed [facility] Influenza Virus Vaccine 2019-04-15 00:00:00 Completed [facility] Influenza High Dose 2019-04-15 00:00:00 Completed [facility] Influenza Virus Vaccine 2019-04-15 00:00:00 Completed [facility] Influenza High Dose 2019-04-15 00:00:00 Completed [facility] Influenza Virus Vaccine 2019-04-15 00:00:00 Completed [facility] Influenza High Dose 2019-04-15 00:00:00 Completed [facility] Influenza Virus Vaccine 2019-04-15 00:00:00 Completed [facility] Influenza High Dose 2019-04-15 00:00:00 Completed [facility] Influenza Virus Vaccine 2019-04-15 00:00:00 Completed [facility] Influenza High Dose 2019-04-15 00:00:00 Completed [facility] Influenza Virus Vaccine 2019-04-15 00:00:00 Completed [facility] Influenza High Dose 2019-04-15 00:00:00 Completed [facility] Influenza Virus Vaccine 2019-04-15 00:00:00 Completed [facility] Influenza High Dose 2019-04-15 00:00:00 Completed [facility] Influenza Virus Vaccine 2019-04-15 00:00:00 Completed [facility] Influenza High Dose 2019-04-15 00:00:00 Completed [facility] Influenza Virus Vaccine 2019-04-15 00:00:00 Completed [facility] Influenza High Dose 2019-04-15 00:00:00 Completed [facility] Influenza Virus Vaccine 2019-04-15 00:00:00 Completed [facility] Influenza High Dose 2019-04-15 00:00:00 Completed [facility] Influenza Virus Vaccine 2019-04-15 00:00:00 Completed [facility] Influenza High Dose 2019-04-15 00:00:00 Completed [facility] Influenza Virus Vaccine 2019-04-15 00:00:00 Completed [facility] Influenza High Dose 2019-04-15 00:00:00 Completed [facility] Influenza Virus Vaccine 2019-04-15 00:00:00 Completed [facility] Influenza High Dose 2019-04-15 00:00:00 Completed [facility] Influenza Virus Vaccine 2019-04-15 00:00:00 Completed [facility] Influenza High Dose 2019-04-15 00:00:00 Completed [facility] Influenza Virus Vaccine 2019-04-15 00:00:00 Completed [facility] Influenza High Dose 2019-04-15 00:00:00 Completed [facility] Influenza Virus Vaccine 2019-04-15 00:00:00 Completed [facility] Influenza High Dose 2019-04-15 00:00:00 Completed [facility] Influenza Virus Vaccine 2019-04-15 00:00:00 Completed [facility] Influenza High Dose 2019-04-15 00:00:00 Completed [facility] Influenza Virus Vaccine 2019-04-15 00:00:00 Completed [facility] Influenza High Dose 2019-04-15 00:00:00 Completed [facility] Influenza Virus Vaccine 2019-04-15 00:00:00 Completed [facility] Influenza High Dose 2019-04-15 00:00:00 Completed [facility] Influenza Virus Vaccine 2019-04-15 00:00:00 Completed [facility] Influenza High Dose 2019-04-15 00:00:00 Completed [facility] Influenza Virus Vaccine 2019-04-15 00:00:00 Completed [facility] Influenza High Dose 2019-04-15 00:00:00 Completed [facility] Influenza Virus Vaccine 2019-04-15 00:00:00 Completed [facility] Influenza High Dose 2019-04-15 00:00:00 Completed [facility] Influenza Virus Vaccine 2019-04-15 00:00:00 Completed [facility] Influenza High Dose 2019-04-15 00:00:00 Completed [facility] Influenza Virus Vaccine 2019-04-15 00:00:00 Completed [facility] Influenza High Dose 2019-04-15 00:00:00 Completed [facility] Influenza Virus Vaccine 2019-04-15 00:00:00 Completed [facility] Influenza High Dose 2019-04-15 00:00:00 Completed [facility] Influenza Virus Vaccine 2019-04-15 00:00:00 Completed [facility] Influenza High Dose 2019-04-15 00:00:00 Completed [facility] Influenza Virus Vaccine 2019-04-15 00:00:00 Completed [facility] Influenza High Dose 2019-04-15 00:00:00 Completed [facility] Influenza Virus Vaccine 2019-04-15 00:00:00 Completed [facility] Influenza High Dose 2019-04-15 00:00:00 Completed [facility] Influenza Virus Vaccine 2019-04-15 00:00:00 Completed [facility] Influenza High Dose 2019-04-15 00:00:00 Completed [facility] Influenza Virus Vaccine 2019-04-15 00:00:00 Completed [facility] Influenza High Dose 2019-04-15 00:00:00 Completed [facility] Influenza Virus Vaccine 2019-04-15 00:00:00 Completed [facility] Influenza High Dose 2019-04-15 00:00:00 Completed [facility] Influenza Virus Vaccine 2019-04-15 00:00:00 Completed [facility] Influenza High Dose 2019-04-15 00:00:00 Completed [facility] Influenza Virus Vaccine 2019-04-15 00:00:00 Completed [facility] Influenza High Dose 2019-04-15 00:00:00 Completed [facility] Influenza Virus Vaccine 2019-04-15 00:00:00 Completed [facility] Influenza High Dose 2019-04-15 00:00:00 Completed [facility] Influenza Virus Vaccine 2019-04-15 00:00:00 Completed [facility] Influenza High Dose 2019-04-15 00:00:00 Completed [facility] Influenza Virus Vaccine 2019-04-15 00:00:00 Completed [facility] Influenza High Dose 2019-04-15 00:00:00 Completed [facility] Influenza Virus Vaccine 2019-04-15 00:00:00 Completed [facility] Influenza High Dose 2019-04-15 00:00:00 Completed [facility] Influenza Virus Vaccine 2019-04-15 00:00:00 Completed [facility] Influenza High Dose 2019-04-15 00:00:00 Completed [facility] Influenza Virus Vaccine 2019-04-15 00:00:00 Completed [facility] Influenza High Dose 2019-04-15 00:00:00 Completed [facility] Influenza Virus Vaccine 2019-04-15 00:00:00 Completed [facility] Influenza High Dose 2019-04-15 00:00:00 [facility] [facility] Virus Vaccine 2019-04-15 00:00:00 Completed [facility] Influenza High Dose 2019-04-15 00:00:00 Completed [facility] Influenza Virus Vaccine 2019-04-15 00:00:00 Completed [facility] Influenza High Dose 2019-04-15 00:00:00 Completed [facility] Influenza Virus Vaccine 2019-04-15 00:00:00 Completed [facility] Influenza High Dose 2019-04-15 00:00:00 Completed [facility] Influenza Virus Vaccine 2019-04-15 00:00:00 Completed [facility] Influenza High Dose 2019-04-15 00:00:00 Completed [facility] Influenza Virus Vaccine 2019-04-15 00:00:00 Completed [facility] Influenza High Dose 2019-04-15 00:00:00 Completed [facility] Influenza Virus Vaccine 2019-04-15 00:00:00 Completed [facility] Influenza High Dose 2019-04-15 00:00:00 Completed [facility] Influenza Virus Vaccine 2019-04-15 00:00:00 Completed [facility] Influenza High Dose 2019-04-15 00:00:00 Completed [facility] Influenza Virus Vaccine 2019-04-15 00:00:00 Completed [facility] Influenza High Dose 2019-04-15 00:00:00 Completed [facility] Influenza Virus Vaccine 2019-04-15 00:00:00 Completed [facility] Influenza High Dose 2019-04-15 00:00:00 Completed [facility] Influenza Virus Vaccine 2019-04-15 00:00:00 Completed [facility] Influenza High Dose 2019-04-15 00:00:00 Completed [facility] Influenza Virus Vaccine 2019-04-15 00:00:00 Completed [facility] Influenza High Dose 2019-04-15 00:00:00 Completed [facility] Influenza Virus Vaccine 2019-04-15 00:00:00 Completed [facility] Influenza High Dose 2019-04-15 00:00:00 Completed [facility] Influenza Virus Vaccine 2019-04-15 00:00:00 Completed [facility] Influenza High Dose 2019-04-15 00:00:00 Completed [facility] Influenza Virus Vaccine 2019-04-15 00:00:00 Completed [facility] Influenza High Dose 2019-04-15 00:00:00 Completed [facility] Influenza Virus Vaccine 2019-04-15 00:00:00 Completed [facility] Influenza High Dose 2019-04-15 00:00:00 Completed [facility] Influenza Virus Vaccine 2019-04-15 00:00:00 Completed [facility] Influenza High Dose 2019-04-15 00:00:00 Completed [facility] Influenza Virus Vaccine 2019-04-15 00:00:00 Completed [facility] Influenza High Dose 2019-04-15 00:00:00 Completed [facility] Influenza Virus Vaccine 2019-04-15 00:00:00 Completed [facility] Influenza High Dose 2019-04-15 00:00:00 Completed [facility] Influenza Virus Vaccine 2019-04-15 00:00:00 Completed [facility] Influenza High Dose 2019-04-15 00:00:00 Completed [facility] Influenza Virus Vaccine 2019-04-15 00:00:00 Completed [facility] Influenza High Dose 2019-04-15 00:00:00 Completed [facility] Influenza Virus Vaccine 2019-04-15 00:00:00 Completed [facility] Influenza High Dose 2019-04-15 00:00:00 Completed [facility] Influenza Virus Vaccine 2019-04-15 00:00:00 Completed [facility] Influenza High Dose 2019-04-15 00:00:00 Completed [facility] Influenza Virus Vaccine 2019-04-15 00:00:00 Completed [facility] Influenza High Dose 2019-04-15 00:00:00 Completed [facility] Influenza Virus Vaccine 2019-04-15 00:00:00 Completed [facility] Influenza High Dose 2019-04-15 00:00:00 Completed [facility] Influenza Virus Vaccine 2019-04-15 00:00:00 Completed [facility] Influenza High Dose 2019-04-15 00:00:00 Completed [facility] Influenza Virus Vaccine 2019-04-15 00:00:00 Completed [facility] Influenza High Dose 2019-04-15 00:00:00 Completed [facility] Influenza Virus Vaccine 2019-04-15 00:00:00 Completed [facility] Influenza High Dose 2019-04-15 00:00:00 Completed [facility] Influenza Virus Vaccine 2019-04-15 00:00:00 Completed [facility] Influenza High Dose 2019-04-15 00:00:00 Completed [facility] Influenza Virus Vaccine 2019-04-15 00:00:00 Completed [facility] Influenza High Dose 2019-04-15 00:00:00 Completed [facility] Influenza Virus Vaccine 2019-04-15 00:00:00 Completed [facility] Influenza High Dose 2019-04-15 00:00:00 Completed [facility] Influenza Virus Vaccine 2019-04-15 00:00:00 Completed [facility] Influenza, High-Dose, Trivalent, PF (FLUZONE) 2019-04-15 00:00:00 Completed [facility] Influenza Virus Vaccine 2019-04-15 00:00:00 Completed Influenza, High-Dose, Trivalent, PF (FLUZONE) 2019-04-15 00:00:00 Completed [facility] Influenza Virus Vaccine 2019-04-15 00:00:00 Completed Influenza, High-Dose, Trivalent, PF (FLUZONE) 2019-04-15 00:00:00 Completed [facility] Influenza Virus Vaccine 2019-04-15 00:00:00 Completed Influenza Virus Vaccine 2019-04-14 00:00:00 Completed [facility] Influenza Virus Vaccine 2019-04-14 00:00:00 Completed [facility] Influenza Virus Vaccine 2019-04-14 00:00:00 Completed [facility] Influenza Virus Vaccine 2019-04-14 00:00:00 Completed [facility] Influenza Virus Vaccine 2019-04-14 00:00:00 Completed [facility] Influenza Virus Vaccine 2019-04-14 00:00:00 Completed [facility] Influenza Virus Vaccine 2019-04-14 00:00:00 Completed [facility] Influenza Virus Vaccine 2019-04-14 00:00:00 Completed [facility] Influenza Virus Vaccine 2019-04-14 00:00:00 Completed [facility] Influenza Virus Vaccine 2019-04-14 00:00:00 Completed [facility] Influenza Virus Vaccine 2019-04-14 00:00:00 Completed [facility] Influenza Virus Vaccine 2019-04-14 00:00:00 Completed [facility] Influenza Virus Vaccine 2019-04-14 00:00:00 Completed [facility] Influenza Virus Vaccine 2019-04-14 00:00:00 Completed [facility] Influenza Virus Vaccine 2019-04-14 00:00:00 Completed [facility] Influenza Virus Vaccine 2019-04-14 00:00:00 Completed [facility] Influenza Virus Vaccine 2019-04-14 00:00:00 Completed [facility] Influenza Virus Vaccine 2019-04-14 00:00:00 Completed [facility] Influenza Virus Vaccine 2019-04-14 00:00:00 Completed [facility] Influenza Virus Vaccine 2019-04-14 00:00:00 Completed [facility] Influenza Virus Vaccine 2019-04-14 00:00:00 Completed [facility] Influenza Virus Vaccine 2019-04-14 00:00:00 Completed [facility] Influenza Virus Vaccine 2019-04-14 00:00:00 Completed [facility] Influenza Virus Vaccine 2019-04-14 00:00:00 Completed [facility] Influenza Virus Vaccine 2019-04-14 00:00:00 Completed [facility] Influenza Virus Vaccine 2019-04-14 00:00:00 Completed [facility] Influenza Virus Vaccine 2019-04-14 00:00:00 Completed [facility] Influenza Virus Vaccine 2019-04-14 00:00:00 Completed [facility] Influenza Virus Vaccine 2019-04-14 00:00:00 Completed [facility] Influenza Virus Vaccine 2019-04-14 00:00:00 Completed [facility] Influenza Virus Vaccine 2019-04-14 00:00:00 Completed [facility] Influenza Virus Vaccine 2019-04-14 00:00:00 Completed [facility] Influenza Virus Vaccine 2019-04-14 00:00:00 Completed [facility] Influenza Virus Vaccine 2019-04-14 00:00:00 Completed [facility] Influenza Virus Vaccine 2019-04-14 00:00:00 Completed [facility] Influenza Virus Vaccine 2019-04-14 00:00:00 Completed [facility] Influenza Virus Vaccine 2019-04-14 00:00:00 Completed [facility] Influenza Virus Vaccine 2019-04-14 00:00:00 Completed [facility] Influenza Virus Vaccine 2019-04-14 00:00:00 Completed [facility] Influenza Virus Vaccine 2019-04-14 00:00:00 Completed [facility] Influenza Virus Vaccine 2019-04-14 00:00:00 Completed [facility] Influenza Virus Vaccine 2019-04-14 00:00:00 Completed [facility] Influenza Virus Vaccine 2019-04-14 00:00:00 Completed [facility] Influenza Virus Vaccine 2019-04-14 00:00:00 Completed [facility] Influenza Virus Vaccine 2019-04-14 00:00:00 Completed [facility] Influenza Virus Vaccine 2019-04-14 00:00:00 Completed [facility] Influenza Virus Vaccine 2019-04-14 00:00:00 Completed [facility] Influenza Virus Vaccine 2019-04-14 00:00:00 Completed [facility] Influenza Virus Vaccine 2019-04-14 00:00:00 Completed [facility] Influenza Virus Vaccine 2019-04-14 00:00:00 Completed [facility] Influenza Virus Vaccine 2019-04-14 00:00:00 Completed [facility] Influenza Virus Vaccine 2019-04-14 00:00:00 Completed [facility] Influenza Virus Vaccine 2019-04-14 00:00:00 Completed [facility] Influenza Virus Vaccine 2019-04-14 00:00:00 Completed [facility] Influenza Virus Vaccine 2019-04-14 00:00:00 Completed [facility] Influenza Virus Vaccine 2019-04-14 00:00:00 Completed [facility] Influenza Virus Vaccine 2019-04-14 00:00:00 Completed [facility] Influenza Virus Vaccine 2019-04-14 00:00:00 Completed [facility] Influenza Virus Vaccine 2019-04-14 00:00:00 Completed [facility] Influenza Virus Vaccine 2019-04-14 00:00:00 Completed [facility] Influenza Virus Vaccine 2019-04-14 00:00:00 Completed [facility] Influenza Virus Vaccine 2019-04-14 00:00:00 Completed [facility] Influenza Virus Vaccine 2019-04-14 00:00:00 Completed [facility] Influenza Virus Vaccine 2019-04-14 00:00:00 Completed [facility] Influenza Virus Vaccine 2019-04-14 00:00:00 Completed [facility] Influenza Virus Vaccine 2019-04-14 00:00:00 Completed [facility] Influenza Virus Vaccine 2019-04-14 00:00:00 Completed [facility] Influenza Virus Vaccine 2019-04-14 00:00:00 Completed [facility] Influenza Virus Vaccine 2019-04-14 00:00:00 Completed [facility] Influenza Virus Vaccine 2019-04-14 00:00:00 Completed [facility] Influenza Virus Vaccine 2019-04-14 00:00:00 Completed [facility] Influenza Virus Vaccine 2019-04-14 00:00:00 Completed [facility] Influenza Virus Vaccine 2019-04-14 00:00:00 Completed [facility] Influenza Virus Vaccine 2019-04-14 00:00:00 Completed [facility] Influenza Virus Vaccine 2019-04-14 00:00:00 Completed [facility] Influenza Virus Vaccine 2019-04-14 00:00:00 Completed [facility] Influenza Virus Vaccine 2019-04-14 00:00:00 Completed [facility] Influenza Virus Vaccine 2019-04-14 00:00:00 Completed [facility] Influenza Virus Vaccine 2019-04-14 00:00:00 Completed [facility] Influenza Virus Vaccine 2019-04-14 00:00:00 Completed [facility] Influenza Virus Vaccine 2019-04-14 00:00:00 Completed [facility] Influenza Virus Vaccine 2019-04-14 00:00:00 Completed [facility] Influenza Virus Vaccine 2019-04-14 00:00:00 Completed [facility] Influenza Virus Vaccine 2019-04-14 00:00:00 Completed [facility] Influenza Virus Vaccine 2019-04-14 00:00:00 Completed [facility] Influenza Virus Vaccine 2019-04-14 00:00:00 Completed [facility] Influenza Virus Vaccine 2019-04-14 00:00:00 Completed [facility] Influenza Virus Vaccine 2019-04-14 00:00:00 Completed [facility] Influenza Virus Vaccine 2019-04-14 00:00:00 Completed [facility] Influenza Virus Vaccine 2019-04-14 00:00:00 Completed [facility] Influenza Virus Vaccine 2019-04-14 00:00:00 Completed [facility] Influenza Virus Vaccine 2019-04-14 00:00:00 Completed [facility] Influenza Virus Vaccine 2019-04-14 00:00:00 Completed [facility] Influenza Virus Vaccine 2019-04-14 00:00:00 Completed [facility] Influenza Virus Vaccine 2019-04-14 00:00:00 Completed [facility] Influenza Virus Vaccine 2019-04-14 00:00:00 Completed [facility] Influenza Virus Vaccine 2019-04-14 00:00:00 Completed [facility] Influenza Virus Vaccine 2019-04-14 00:00:00 Completed [facility] Influenza Virus Vaccine 2019-04-14 00:00:00 Completed [facility] Influenza Virus Vaccine 2019-04-14 00:00:00 Completed [facility] Influenza Virus Vaccine 2019-04-14 00:00:00 Completed [facility] Influenza Virus Vaccine 2019-04-14 00:00:00 Completed [facility] Influenza Virus Vaccine 2019-04-14 00:00:00 Completed [facility] Influenza Virus Vaccine 2019-04-14 00:00:00 Completed [facility] Influenza Virus Vaccine 2019-04-14 00:00:00 Completed [facility] Influenza Virus Vaccine 2019-04-14 00:00:00 Completed [facility] Influenza Virus Vaccine 2019-04-14 00:00:00 Completed [facility] Influenza Virus Vaccine 2019-04-14 00:00:00 Completed [facility] Influenza Virus Vaccine 2019-04-14 00:00:00 Completed [facility] Influenza Virus Vaccine 2019-04-14 00:00:00 Completed [facility] Influenza Virus Vaccine 2019-04-14 00:00:00 Completed [facility] Influenza Virus Vaccine 2019-04-14 00:00:00 Completed [facility] Influenza Virus Vaccine 2019-04-14 00:00:00 Completed [facility] Influenza Virus Vaccine 2019-04-14 00:00:00 Completed [facility] Influenza Virus Vaccine 2019-04-14 00:00:00 Completed [facility] Influenza Virus Vaccine 2019-04-14 00:00:00 Completed [facility] Influenza Virus Vaccine 2019-04-14 00:00:00 Completed [facility] Influenza Virus Vaccine 2019-04-14 00:00:00 Completed [facility] Influenza Virus Vaccine 2019-04-14 00:00:00 Completed [facility] Influenza Virus Vaccine 2019-04-14 00:00:00 Completed [facility] Influenza Virus Vaccine 2019-04-14 00:00:00 Completed [facility] Influenza Virus Vaccine 2019-04-14 00:00:00 Completed [facility] Influenza Virus Vaccine 2019-04-14 00:00:00 Completed [facility] Influenza Virus Vaccine 2019-04-14 00:00:00 Completed [facility] Influenza Virus Vaccine 2019-04-14 00:00:00 Completed [facility] Influenza Virus Vaccine 2019-04-14 00:00:00 Completed [facility] Influenza Virus Vaccine 2019-04-14 00:00:00 Completed Influenza Virus Vaccine 2019-04-14 00:00:00 Completed Influenza Virus Vaccine 2019-04-14 00:00:00 Completed Influenza Virus Vaccine Quad IM Multi-dose 6+ MO 2019-04-03 00:00:00 Completed [facility] Pneumococcal Polysaccharide, PPSV23 (PNEUMOVAX) 2019-04-03 00:00:00 Completed [facility] Influenza Virus Vaccine Quad IM Multi-dose 6+ MO 2019-04-03 00:00:00 Completed [facility] Pneumococcal Polysaccharide, PPSV23 (PNEUMOVAX) 2019-04-03 00:00:00 Completed [facility] Influenza Virus Vaccine Quad IM Multi-dose 6+ MO 2019-04-03 00:00:00 Completed [facility] Pneumococcal Polysaccharide, PPSV23 (PNEUMOVAX) 2019-04-03 00:00:00 Completed [facility] Influenza Virus Vaccine Quad IM Multi-dose 6+ MO 2019-04-03 00:00:00 Completed [facility] Pneumococcal Polysaccharide, PPSV23 (PNEUMOVAX) 2019-04-03 00:00:00 Completed [facility] Influenza Virus Vaccine Quad IM Multi-dose 6+ MO 2019-04-03 00:00:00 Completed [facility] Pneumococcal Polysaccharide, PPSV23 (PNEUMOVAX) 2019-04-03 00:00:00 Completed [facility] Influenza Virus Vaccine Quad IM Multi-dose 6+ MO 2019-04-03 00:00:00 Completed [facility] Pneumococcal Polysaccharide, PPSV23 (PNEUMOVAX) 2019-04-03 00:00:00 Completed [facility] Influenza Virus Vaccine Quad IM Multi-dose 6+ MO 2019-04-03 00:00:00 Completed [facility] Pneumococcal Polysaccharide, PPSV23 (PNEUMOVAX) 2019-04-03 00:00:00 Completed [facility] Influenza Virus Vaccine Quad IM Multi-dose 6+ MO 2019-04-03 00:00:00 Completed [facility] Pneumococcal Polysaccharide, PPSV23 (PNEUMOVAX) 2019-04-03 00:00:00 Completed [facility] Influenza Virus Vaccine Quad IM Multi-dose 6+ MO 2019-04-03 00:00:00 Completed [facility] Pneumococcal Polysaccharide, PPSV23 (PNEUMOVAX) 2019-04-03 00:00:00 Completed [facility] Influenza Virus Vaccine Quad IM Multi-dose 6+ MO 2019-04-03 00:00:00 Completed [facility] Pneumococcal Polysaccharide, PPSV23 (PNEUMOVAX) 2019-04-03 00:00:00 Completed [facility] Influenza Virus Vaccine Quad IM Multi-dose 6+ MO 2019-04-03 00:00:00 Completed [facility] Pneumococcal Polysaccharide, PPSV23 (PNEUMOVAX) 2019-04-03 00:00:00 Completed [facility] Influenza Virus Vaccine Quad IM Multi-dose 6+ MO 2019-04-03 00:00:00 Completed [facility] Pneumococcal Polysaccharide, PPSV23 (PNEUMOVAX) 2019-04-03 00:00:00 Completed [facility] Influenza Virus Vaccine Quad IM Multi-dose 6+ MO 2019-04-03 00:00:00 Completed [facility] Pneumococcal Polysaccharide, PPSV23 (PNEUMOVAX) 2019-04-03 00:00:00 Completed [facility] Influenza Virus Vaccine Quad IM Multi-dose 6+ MO 2019-04-03 00:00:00 Completed [facility] Pneumococcal Polysaccharide, PPSV23 (PNEUMOVAX) 2019-04-03 00:00:00 Completed [facility] Influenza Virus Vaccine Quad IM Multi-dose 6+ MO 2019-04-03 00:00:00 Completed [facility] Pneumococcal Polysaccharide, PPSV23 (PNEUMOVAX) 2019-04-03 00:00:00 Completed [facility] Influenza Virus Vaccine Quad IM Multi-dose 6+ MO 2019-04-03 00:00:00 Completed [facility] Pneumococcal Polysaccharide, PPSV23 (PNEUMOVAX) 2019-04-03 00:00:00 Completed [facility] Influenza Virus Vaccine Quad IM Multi-dose 6+ MO 2019-04-03 00:00:00 Completed [facility] Pneumococcal Polysaccharide, PPSV23 (PNEUMOVAX) 2019-04-03 00:00:00 Completed [facility] Influenza Virus Vaccine Quad IM Multi-dose 6+ MO 2019-04-03 00:00:00 Completed [facility] Pneumococcal Polysaccharide, PPSV23 (PNEUMOVAX) 2019-04-03 00:00:00 Completed [facility] Influenza Virus Vaccine Quad IM Multi-dose 6+ MO 2019-04-03 00:00:00 Completed [facility] Pneumococcal Polysaccharide, PPSV23 (PNEUMOVAX) 2019-04-03 00:00:00 Completed [facility] Influenza Virus Vaccine Quad IM Multi-dose 6+ MO 2019-04-03 00:00:00 Completed [facility] Pneumococcal Polysaccharide, PPSV23 (PNEUMOVAX) 2019-04-03 00:00:00 Completed [facility] Influenza Virus Vaccine Quad IM Multi-dose 6+ MO 2019-04-03 00:00:00 Completed [facility] Pneumococcal Polysaccharide, PPSV23 (PNEUMOVAX) 2019-04-03 00:00:00 Completed [facility] Influenza Virus Vaccine Quad IM Multi-dose 6+ MO 2019-04-03 00:00:00 Completed [facility] Pneumococcal Polysaccharide, PPSV23 (PNEUMOVAX) 2019-04-03 00:00:00 Completed [facility] Influenza Virus Vaccine Quad IM Multi-dose 6+ MO 2019-04-03 00:00:00 Completed [facility] Pneumococcal Polysaccharide, PPSV23 (PNEUMOVAX) 2019-04-03 00:00:00 Completed [facility] Influenza Virus Vaccine Quad IM Multi-dose 6+ MO 2019-04-03 00:00:00 Completed [facility] Pneumococcal Polysaccharide, PPSV23 (PNEUMOVAX) 2019-04-03 00:00:00 Completed [facility] Influenza Virus Vaccine Quad IM Multi-dose 6+ MO 2019-04-03 00:00:00 Completed [facility] Pneumococcal Polysaccharide, PPSV23 (PNEUMOVAX) 2019-04-03 00:00:00 Completed [facility] Influenza Virus Vaccine Quad IM Multi-dose 6+ MO 2019-04-03 00:00:00 Completed [facility] Pneumococcal Polysaccharide, PPSV23 (PNEUMOVAX) 2019-04-03 00:00:00 Completed [facility] Influenza Virus Vaccine Quad IM Multi-dose 6+ MO 2019-04-03 00:00:00 Completed [facility] Pneumococcal Polysaccharide, PPSV23 (PNEUMOVAX) 2019-04-03 00:00:00 Completed [facility] Influenza Virus Vaccine Quad IM Multi-dose 6+ MO 2019-04-03 00:00:00 Completed [facility] Pneumococcal Polysaccharide, PPSV23 (PNEUMOVAX) 2019-04-03 00:00:00 Completed [facility] Influenza Virus Vaccine Quad IM Multi-dose 6+ MO 2019-04-03 00:00:00 Completed [facility] Pneumococcal Polysaccharide, PPSV23 (PNEUMOVAX) 2019-04-03 00:00:00 Completed [facility] Influenza Virus Vaccine Quad IM Multi-dose 6+ MO 2019-04-03 00:00:00 Completed [facility] Pneumococcal Polysaccharide, PPSV23 (PNEUMOVAX) 2019-04-03 00:00:00 Completed [facility] Influenza Virus Vaccine Quad IM Multi-dose 6+ MO 2019-04-03 00:00:00 Completed [facility] Pneumococcal Polysaccharide, PPSV23 (PNEUMOVAX) 2019-04-03 00:00:00 Completed [facility] Influenza Virus Vaccine Quad IM Multi-dose 6+ MO 2019-04-03 00:00:00 Completed [facility] Pneumococcal Polysaccharide, PPSV23 (PNEUMOVAX) 2019-04-03 00:00:00 Completed [facility] Influenza Virus Vaccine Quad IM Multi-dose 6+ MO 2019-04-03 00:00:00 Completed [facility] Pneumococcal Polysaccharide, PPSV23 (PNEUMOVAX) 2019-04-03 00:00:00 Completed [facility] Influenza Virus Vaccine Quad IM Multi-dose 6+ MO 2019-04-03 00:00:00 Completed [facility] Pneumococcal Polysaccharide, PPSV23 (PNEUMOVAX) 2019-04-03 00:00:00 Completed [facility] Influenza Virus Vaccine Quad IM Multi-dose 6+ MO 2019-04-03 00:00:00 Completed [facility] Pneumococcal Polysaccharide, PPSV23 (PNEUMOVAX) 2019-04-03 00:00:00 Completed [facility] Influenza Virus Vaccine Quad IM Multi-dose 6+ MO 2019-04-03 00:00:00 Completed [facility] Pneumococcal Polysaccharide, PPSV23 (PNEUMOVAX) 2019-04-03 00:00:00 Completed [facility] Influenza Virus Vaccine Quad IM Multi-dose 6+ MO 2019-04-03 00:00:00 Completed [facility] Pneumococcal Polysaccharide, PPSV23 (PNEUMOVAX) 2019-04-03 00:00:00 Completed [facility] Influenza Virus Vaccine Quad IM Multi-dose 6+ MO 2019-04-03 00:00:00 Completed [facility] Pneumococcal Polysaccharide, PPSV23 (PNEUMOVAX) 2019-04-03 00:00:00 Completed [facility] Influenza Virus Vaccine Quad IM Multi-dose 6+ MO 2019-04-03 00:00:00 Completed [facility] Pneumococcal Polysaccharide, PPSV23 (PNEUMOVAX) 2019-04-03 00:00:00 Completed [facility] Influenza Virus Vaccine Quad IM Multi-dose 6+ MO 2019-04-03 00:00:00 Completed [facility] Pneumococcal Polysaccharide, PPSV23 (PNEUMOVAX) 2019-04-03 00:00:00 Completed [facility] Influenza Virus Vaccine Quad IM Multi-dose 6+ MO 2019-04-03 00:00:00 Completed [facility] Pneumococcal Polysaccharide, PPSV23 (PNEUMOVAX) 2019-04-03 00:00:00 Completed [facility] Influenza Virus Vaccine Quad IM Multi-dose 6+ MO 2019-04-03 00:00:00 Completed [facility] Pneumococcal Polysaccharide, PPSV23 (PNEUMOVAX) 2019-04-03 00:00:00 Completed [facility] Influenza Virus Vaccine Quad IM Multi-dose 6+ MO 2019-04-03 00:00:00 Completed [facility] Pneumococcal Polysaccharide, PPSV23 (PNEUMOVAX) 2019-04-03 00:00:00 Completed [facility] Influenza Virus Vaccine Quad IM Multi-dose 6+ MO 2019-04-03 00:00:00 Completed [facility] Pneumococcal Polysaccharide, PPSV23 (PNEUMOVAX) 2019-04-03 00:00:00 Completed [facility] Influenza Virus Vaccine Quad IM Multi-dose 6+ MO 2019-04-03 00:00:00 Completed [facility] Pneumococcal Polysaccharide, PPSV23 (PNEUMOVAX) 2019-04-03 00:00:00 Completed [facility] Influenza Virus Vaccine Quad IM Multi-dose 6+ MO 2019-04-03 00:00:00 Completed [facility] Pneumococcal Polysaccharide, PPSV23 (PNEUMOVAX) 2019-04-03 00:00:00 Completed [facility] Influenza Virus Vaccine Quad IM Multi-dose 6+ MO 2019-04-03 00:00:00 Completed [facility] Pneumococcal Polysaccharide, PPSV23 (PNEUMOVAX) 2019-04-03 00:00:00 Completed [facility] Influenza Virus Vaccine Quad IM Multi-dose 6+ MO 2019-04-03 00:00:00 Completed [facility] Pneumococcal Polysaccharide, PPSV23 (PNEUMOVAX) 2019-04-03 00:00:00 Completed [facility] Influenza Virus Vaccine Quad IM Multi-dose 6+ MO 2019-04-03 00:00:00 Completed [facility] Pneumococcal Polysaccharide, PPSV23 (PNEUMOVAX) 2019-04-03 00:00:00 Completed [facility] Influenza Virus Vaccine Quad IM Multi-dose 6+ MO 2019-04-03 00:00:00 Completed [facility] Pneumococcal Polysaccharide, PPSV23 (PNEUMOVAX) 2019-04-03 00:00:00 Completed [facility] Influenza Virus Vaccine Quad IM Multi-dose 6+ MO 2019-04-03 00:00:00 Completed [facility] Pneumococcal Polysaccharide, PPSV23 (PNEUMOVAX) 2019-04-03 00:00:00 Completed [facility] Influenza Virus Vaccine Quad IM Multi-dose 6+ MO 2019-04-03 00:00:00 Completed [facility] Pneumococcal Polysaccharide, PPSV23 (PNEUMOVAX) 2019-04-03 00:00:00 Completed [facility] Influenza Virus Vaccine Quad IM Multi-dose 6+ MO 2019-04-03 00:00:00 Completed [facility] Pneumococcal Polysaccharide, PPSV23 (PNEUMOVAX) 2019-04-03 00:00:00 Completed [facility] Influenza Virus Vaccine Quad IM Multi-dose 6+ MO 2019-04-03 00:00:00 Completed [facility] Pneumococcal Polysaccharide, PPSV23 (PNEUMOVAX) 2019-04-03 00:00:00 Completed [facility] Influenza Virus Vaccine Quad IM Multi-dose 6+ MO 2019-04-03 00:00:00 Completed [facility] Pneumococcal Polysaccharide, PPSV23 (PNEUMOVAX) 2019-04-03 00:00:00 Completed [facility] Influenza Virus Vaccine Quad IM Multi-dose 6+ MO 2019-04-03 00:00:00 Completed [facility] Pneumococcal Polysaccharide, PPSV23 (PNEUMOVAX) 2019-04-03 00:00:00 Completed [facility] Influenza Virus Vaccine Quad IM Multi-dose 6+ MO 2019-04-03 00:00:00 Completed [facility] Pneumococcal Polysaccharide, PPSV23 (PNEUMOVAX) 2019-04-03 00:00:00 Completed [facility] Influenza Virus Vaccine Quad IM Multi-dose 6+ MO 2019-04-03 00:00:00 Completed [facility] Pneumococcal Polysaccharide, PPSV23 (PNEUMOVAX) 2019-04-03 00:00:00 Completed [facility] Influenza Virus Vaccine Quad IM Multi-dose 6+ MO 2019-04-03 00:00:00 Completed [facility] Pneumococcal Polysaccharide, PPSV23 (PNEUMOVAX) 2019-04-03 00:00:00 Completed [facility] Influenza Virus Vaccine Quad IM Multi-dose 6+ MO 2019-04-03 00:00:00 Completed [facility] Pneumococcal Polysaccharide, PPSV23 (PNEUMOVAX) 2019-04-03 00:00:00 Completed [facility] Influenza Virus Vaccine Quad IM Multi-dose 6+ MO 2019-04-03 00:00:00 Completed [facility] Pneumococcal Polysaccharide, PPSV23 (PNEUMOVAX) 2019-04-03 00:00:00 Completed [facility] Influenza Virus Vaccine Quad IM Multi-dose 6+ MO 2019-04-03 00:00:00 Completed [facility] Pneumococcal Polysaccharide, PPSV23 (PNEUMOVAX) 2019-04-03 00:00:00 Completed [facility] Influenza Virus Vaccine Quad IM Multi-dose 6+ MO 2019-04-03 00:00:00 Completed [facility] Pneumococcal Polysaccharide, PPSV23 (PNEUMOVAX) 2019-04-03 00:00:00 Completed [facility] Influenza Virus Vaccine Quad IM Multi-dose 6+ MO 2019-04-03 00:00:00 Completed [facility] Pneumococcal Polysaccharide, PPSV23 (PNEUMOVAX) 2019-04-03 00:00:00 Completed [facility] Influenza Virus Vaccine Quad IM Multi-dose 6+ MO 2019-04-03 00:00:00 Completed [facility] Pneumococcal Polysaccharide, PPSV23 (PNEUMOVAX) 2019-04-03 00:00:00 Completed [facility] Influenza Virus Vaccine Quad IM Multi-dose 6+ MO 2019-04-03 00:00:00 Completed [facility] Pneumococcal Polysaccharide, PPSV23 (PNEUMOVAX) 2019-04-03 00:00:00 Completed [facility] Influenza Virus Vaccine Quad IM Multi-dose 6+ MO 2019-04-03 00:00:00 Completed [facility] Pneumococcal Polysaccharide, PPSV23 (PNEUMOVAX) 2019-04-03 00:00:00 Completed [facility] Influenza Virus Vaccine Quad IM Multi-dose 6+ MO 2019-04-03 00:00:00 Completed [facility] Pneumococcal Polysaccharide, PPSV23 (PNEUMOVAX) 2019-04-03 00:00:00 Completed [facility] Influenza Virus Vaccine Quad IM Multi-dose 6+ MO 2019-04-03 00:00:00 Completed [facility] Pneumococcal Polysaccharide, PPSV23 (PNEUMOVAX) 2019-04-03 00:00:00 Completed [facility] Influenza Virus Vaccine Quad IM Multi-dose 6+ MO 2019-04-03 00:00:00 Completed [facility] Pneumococcal Polysaccharide, PPSV23 (PNEUMOVAX) 2019-04-03 00:00:00 Completed [facility] Influenza Virus Vaccine Quad IM Multi-dose 6+ MO 2019-04-03 00:00:00 Completed [facility] Pneumococcal Polysaccharide, PPSV23 (PNEUMOVAX) 2019-04-03 00:00:00 Completed [facility] Influenza Virus Vaccine Quad IM Multi-dose 6+ MO 2019-04-03 00:00:00 Completed [facility] Pneumococcal Polysaccharide, PPSV23 (PNEUMOVAX) 2019-04-03 00:00:00 Completed [facility] Influenza Virus Vaccine Quad IM Multi-dose 6+ MO 2019-04-03 00:00:00 Completed [facility] Pneumococcal Polysaccharide, PPSV23 (PNEUMOVAX) 2019-04-03 00:00:00 Completed [facility] Influenza Virus Vaccine Quad IM Multi-dose 6+ MO 2019-04-03 00:00:00 Completed [facility] Pneumococcal Polysaccharide, PPSV23 (PNEUMOVAX) 2019-04-03 00:00:00 Completed [facility] Influenza Virus Vaccine Quad IM Multi-dose 6+ MO 2019-04-03 00:00:00 Completed [facility] Pneumococcal Polysaccharide, PPSV23 (PNEUMOVAX) 2019-04-03 00:00:00 Completed [facility] Influenza Virus Vaccine Quad IM Multi-dose 6+ MO 2019-04-03 00:00:00 Completed [facility] Pneumococcal Polysaccharide, PPSV23 (PNEUMOVAX) 2019-04-03 00:00:00 Completed [facility] Influenza Virus Vaccine Quad IM Multi-dose 6+ MO 2019-04-03 00:00:00 Completed [facility] Pneumococcal Polysaccharide, PPSV23 (PNEUMOVAX) 2019-04-03 00:00:00 Completed [facility] Influenza Virus Vaccine Quad IM Multi-dose 6+ MO 2019-04-03 00:00:00 Completed [facility] Pneumococcal Polysaccharide, PPSV23 (PNEUMOVAX) 2019-04-03 00:00:00 Completed [facility] Influenza Virus Vaccine Quad IM Multi-dose 6+ MO 2019-04-03 00:00:00 Completed [facility] Pneumococcal Polysaccharide, PPSV23 (PNEUMOVAX) 2019-04-03 00:00:00 Completed [facility] Influenza Virus Vaccine Quad IM Multi-dose 6+ MO 2019-04-03 00:00:00 Completed [facility] Pneumococcal Polysaccharide, PPSV23 (PNEUMOVAX) 2019-04-03 00:00:00 Completed [facility] Influenza Virus Vaccine Quad IM Multi-dose 6+ MO 2019-04-03 00:00:00 Completed [facility] Pneumococcal Polysaccharide, PPSV23 (PNEUMOVAX) 2019-04-03 00:00:00 Completed [facility] Influenza Virus Vaccine Quad IM Multi-dose 6+ MO 2019-04-03 00:00:00 Completed [facility] Pneumococcal Polysaccharide, PPSV23 (PNEUMOVAX) 2019-04-03 00:00:00 Completed [facility] Influenza Virus Vaccine Quad IM Multi-dose 6+ MO 2019-04-03 00:00:00 Completed [facility] Pneumococcal Polysaccharide, PPSV23 (PNEUMOVAX) 2019-04-03 00:00:00 Completed [facility] Influenza Virus Vaccine Quad IM Multi-dose 6+ MO 2019-04-03 00:00:00 Completed [facility] Pneumococcal Polysaccharide, PPSV23 (PNEUMOVAX) 2019-04-03 00:00:00 Completed [facility] Influenza Virus Vaccine Quad IM Multi-dose 6+ MO 2019-04-03 00:00:00 Completed [facility] Pneumococcal Polysaccharide, PPSV23 (PNEUMOVAX) 2019-04-03 00:00:00 Completed [facility] Influenza Virus Vaccine Quad IM Multi-dose 6+ MO 2019-04-03 00:00:00 Completed [facility] Pneumococcal Polysaccharide, PPSV23 (PNEUMOVAX) 2019-04-03 00:00:00 Completed [facility] Influenza Virus Vaccine Quad IM Multi-dose 6+ MO 2019-04-03 00:00:00 Completed [facility] Pneumococcal Polysaccharide, PPSV23 (PNEUMOVAX) 2019-04-03 00:00:00 Completed [facility] Influenza Virus Vaccine Quad IM Multi-dose 6+ MO 2019-04-03 00:00:00 Completed [facility] Pneumococcal Polysaccharide, PPSV23 (PNEUMOVAX) 2019-04-03 00:00:00 Completed [facility] Influenza Virus Vaccine Quad IM Multi-dose 6+ MO 2019-04-03 00:00:00 Completed [facility] Pneumococcal Polysaccharide, PPSV23 (PNEUMOVAX) 2019-04-03 00:00:00 Completed [facility] Influenza Virus Vaccine Quad IM Multi-dose 6+ MO 2019-04-03 00:00:00 Completed [facility] Pneumococcal Polysaccharide, PPSV23 (PNEUMOVAX) 2019-04-03 00:00:00 Completed [facility] Influenza Virus Vaccine Quad IM Multi-dose 6+ MO 2019-04-03 00:00:00 Completed [facility] Pneumococcal Polysaccharide, PPSV23 (PNEUMOVAX) 2019-04-03 00:00:00 Completed [facility] Influenza Virus Vaccine Quad IM Multi-dose 6+ MO 2019-04-03 00:00:00 Completed [facility] Pneumococcal Polysaccharide, PPSV23 (PNEUMOVAX) 2019-04-03 00:00:00 Completed [facility] Influenza Virus Vaccine Quad IM Multi-dose 6+ MO 2019-04-03 00:00:00 Completed [facility] Pneumococcal Polysaccharide, PPSV23 (PNEUMOVAX) 2019-04-03 00:00:00 Completed [facility] Influenza Virus Vaccine Quad IM Multi-dose 6+ MO 2019-04-03 00:00:00 Completed [facility] Pneumococcal Polysaccharide, PPSV23 (PNEUMOVAX) 2019-04-03 00:00:00 Completed [facility] Influenza Virus Vaccine Quad IM Multi-dose 6+ MO 2019-04-03 00:00:00 Completed [facility] Pneumococcal Polysaccharide, PPSV23 (PNEUMOVAX) 2019-04-03 00:00:00 Completed [facility] Influenza Virus Vaccine Quad IM Multi-dose 6+ MO 2019-04-03 00:00:00 Completed [facility] Pneumococcal Polysaccharide, PPSV23 (PNEUMOVAX) 2019-04-03 00:00:00 Completed [facility] Influenza Virus Vaccine Quad IM Multi-dose 6+ MO 2019-04-03 00:00:00 Completed [facility] Pneumococcal Polysaccharide, PPSV23 (PNEUMOVAX) 2019-04-03 00:00:00 Completed [facility] Influenza Virus Vaccine Quad IM Multi-dose 6+ MO 2019-04-03 00:00:00 Completed [facility] Pneumococcal Polysaccharide, PPSV23 (PNEUMOVAX) 2019-04-03 00:00:00 Completed [facility] Influenza Virus Vaccine Quad IM Multi-dose 6+ MO 2019-04-03 00:00:00 Completed [facility] Pneumococcal Polysaccharide, PPSV23 (PNEUMOVAX) 2019-04-03 00:00:00 Completed [facility] Influenza Virus Vaccine Quad IM Multi-dose 6+ MO 2019-04-03 00:00:00 Completed [facility] Pneumococcal Polysaccharide, PPSV23 (PNEUMOVAX) 2019-04-03 00:00:00 Completed [facility] Influenza Virus Vaccine Quad IM Multi-dose 6+ MO 2019-04-03 00:00:00 Completed [facility] Pneumococcal Polysaccharide, PPSV23 (PNEUMOVAX) 2019-04-03 00:00:00 Completed [facility] Influenza Virus Vaccine Quad IM Multi-dose 6+ MO 2019-04-03 00:00:00 Completed [facility] Pneumococcal Polysaccharide, PPSV23 (PNEUMOVAX) 2019-04-03 00:00:00 Completed [facility] Influenza Virus Vaccine Quad IM Multi-dose 6+ MO 2019-04-03 00:00:00 Completed [facility] Pneumococcal Polysaccharide, PPSV23 (PNEUMOVAX) 2019-04-03 00:00:00 Completed [facility] Influenza Virus Vaccine Quad IM Multi-dose 6+ MO 2019-04-03 00:00:00 Completed [facility] Pneumococcal Polysaccharide, PPSV23 (PNEUMOVAX) 2019-04-03 00:00:00 Completed [facility] Influenza Virus Vaccine Quad IM Multi-dose 6+ MO 2019-04-03 00:00:00 Completed [facility] Pneumococcal Polysaccharide, PPSV23 (PNEUMOVAX) 2019-04-03 00:00:00 Completed [facility] Influenza Virus Vaccine Quad IM Multi-dose 6+ MO 2019-04-03 00:00:00 Completed [facility] Pneumococcal Polysaccharide, PPSV23 (PNEUMOVAX) 2019-04-03 00:00:00 Completed [facility] Influenza Virus Vaccine Quad IM Multi-dose 6+ MO 2019-04-03 00:00:00 Completed [facility] Pneumococcal Polysaccharide, PPSV23 (PNEUMOVAX) 2019-04-03 00:00:00 Completed [facility] Influenza Virus Vaccine Quad IM Multi-dose 6+ MO 2019-04-03 00:00:00 Completed [facility] Pneumococcal Polysaccharide, PPSV23 (PNEUMOVAX) 2019-04-03 00:00:00 Completed [facility] Influenza Virus Vaccine Quad IM Multi-dose 6+ MO 2019-04-03 00:00:00 Completed [facility] Pneumococcal Polysaccharide, PPSV23 (PNEUMOVAX) 2019-04-03 00:00:00 Completed [facility] Influenza Virus Vaccine Quad IM Multi-dose 6+ MO 2019-04-03 00:00:00 Completed [facility] Pneumococcal Polysaccharide, PPSV23 (PNEUMOVAX) 2019-04-03 00:00:00 Completed [facility] Influenza Virus Vaccine Quad IM Multi-dose 6+ MO 2019-04-03 00:00:00 Completed [facility] Pneumococcal Polysaccharide, PPSV23 (PNEUMOVAX) 2019-04-03 00:00:00 Completed [facility] Influenza Virus Vaccine Quad IM Multi-dose 6+ MO 2019-04-03 00:00:00 Completed [facility] Pneumococcal Polysaccharide, PPSV23 (PNEUMOVAX) 2019-04-03 00:00:00 Completed [facility] Influenza Virus Vaccine Quad IM Multi-dose 6+ MO 2019-04-03 00:00:00 Completed [facility] Pneumococcal Polysaccharide, PPSV23 (PNEUMOVAX) 2019-04-03 00:00:00 Completed [facility] Influenza Virus Vaccine Quad IM Multi-dose 6+ MO 2019-04-03 00:00:00 Completed [facility] Pneumococcal Polysaccharide, PPSV23 (PNEUMOVAX) 2019-04-03 00:00:00 Completed [facility] Influenza Virus Vaccine Quad IM Multi-dose 6+ MO 2019-04-03 00:00:00 Completed [facility] Pneumococcal Polysaccharide, PPSV23 (PNEUMOVAX) 2019-04-03 00:00:00 Completed [facility] Influenza Virus Vaccine Quad IM Multi-dose 6+ MO 2019-04-03 00:00:00 Completed [facility] Pneumococcal Polysaccharide, PPSV23 (PNEUMOVAX) 2019-04-03 00:00:00 Completed [facility] Influenza Virus Vaccine Quad IM Multi-dose 6+ MO 2019-04-03 00:00:00 Completed [facility] Pneumococcal Polysaccharide, PPSV23 (PNEUMOVAX) 2019-04-03 00:00:00 Completed [facility] Influenza Virus Vaccine Quad IM Multi-dose 6+ MO 2019-04-03 00:00:00 Completed [facility] Pneumococcal Polysaccharide, PPSV23 (PNEUMOVAX) 2019-04-03 00:00:00 Completed [facility] Influenza Virus Vaccine Quad IM Multi-dose 6+ MO 2019-04-03 00:00:00 Completed [facility] Pneumococcal Polysaccharide, PPSV23 (PNEUMOVAX) 2019-04-03 00:00:00 Completed [facility] Influenza Virus Vaccine Quad IM Multi-dose 6+ MO 2019-04-03 00:00:00 Completed [facility] Pneumococcal Polysaccharide, PPSV23 (PNEUMOVAX) 2019-04-03 00:00:00 Completed [facility] Influenza Virus Vaccine Quad IM Multi-dose 6+ MO 2019-04-03 00:00:00 Completed [facility] Pneumococcal Polysaccharide, PPSV23 (PNEUMOVAX) 2019-04-03 00:00:00 Completed [facility] Influenza Virus Vaccine Quad IM Multi-dose 6+ MO 2019-04-03 00:00:00 Completed [facility] Pneumococcal Polysaccharide, PPSV23 (PNEUMOVAX) 2019-04-03 00:00:00 Completed [facility] Influenza Virus Vaccine Quad IM Multi-dose 6+ MO 2019-04-03 00:00:00 Completed [facility] Pneumococcal Polysaccharide, PPSV23 (PNEUMOVAX) 2019-04-03 00:00:00 Completed [facility] Influenza Virus Vaccine Quad IM Multi-dose 6+ MO 2019-04-03 00:00:00 Completed [facility] Pneumococcal Polysaccharide, PPSV23 (PNEUMOVAX) 2019-04-03 00:00:00 Completed [facility] Influenza Virus Vaccine Quad IM Multi-dose 6+ MO 2019-04-03 00:00:00 Completed [facility] Pneumococcal Polysaccharide, PPSV23 (PNEUMOVAX) 2019-04-03 00:00:00 Completed [facility] Influenza Virus Vaccine Quad IM Multi-dose 6+ MO 2019-04-03 00:00:00 Completed [facility] Pneumococcal Polysaccharide, PPSV23 (PNEUMOVAX) 2019-04-03 00:00:00 Completed [facility] Influenza Virus Vaccine Quad IM Multi-dose 6+ MO 2019-04-03 00:00:00 Completed [facility] Pneumococcal Polysaccharide, PPSV23 (PNEUMOVAX) 2019-04-03 00:00:00 Completed Influenza Virus Vaccine Quad IM Multi-dose 6+ MO 2019-04-03 00:00:00 Completed Pneumococcal Polysaccharide, PPSV23 (PNEUMOVAX) 2019-04-03 00:00:00 Completed Influenza Virus Vaccine Quad IM Multi-dose 6+ MO 2019-04-03 00:00:00 Completed Pneumococcal Polysaccharide, PPSV23 (PNEUMOVAX) 2019-04-03 00:00:00 Completed Influenza High Dose 2018-04-24 00:00:00 Completed [facility] Influenza High Dose 2018-04-24 00:00:00 Completed [facility] Influenza High Dose 2018-04-24 00:00:00 Completed [facility] Influenza High Dose 2018-04-24 00:00:00 Completed [facility] Influenza High Dose 2018-04-24 00:00:00 Completed [facility] Influenza High Dose 2018-04-24 00:00:00 Completed [facility] Influenza High Dose 2018-04-24 00:00:00 Completed [facility] Influenza High Dose 2018-04-24 00:00:00 Completed [facility] Influenza High Dose 2018-04-24 00:00:00 Completed [facility] Influenza High Dose 2018-04-24 00:00:00 Completed [facility] Influenza High Dose 2018-04-24 00:00:00 Completed [facility] Influenza High Dose 2018-04-24 00:00:00 Completed [facility] Influenza High Dose 2018-04-24 00:00:00 Completed [facility] Influenza High Dose 2018-04-24 00:00:00 Completed [facility] Influenza High Dose 2018-04-24 00:00:00 Completed [facility] Influenza High Dose 2018-04-24 00:00:00 Completed [facility] Influenza High Dose 2018-04-24 00:00:00 Completed [facility] Influenza High Dose 2018-04-24 00:00:00 Completed [facility] Influenza High Dose 2018-04-24 00:00:00 Completed [facility] Influenza High Dose 2018-04-24 00:00:00 Completed [facility] Influenza High Dose 2018-04-24 00:00:00 Completed [facility] Influenza High Dose 2018-04-24 00:00:00 Completed [facility] Influenza High Dose 2018-04-24 00:00:00 Completed [facility] Influenza High Dose 2018-04-24 00:00:00 Completed [facility] Influenza High Dose 2018-04-24 00:00:00 Completed [facility] Influenza High Dose 2018-04-24 00:00:00 Completed [facility] Influenza High Dose 2018-04-24 00:00:00 Completed [facility] Influenza High Dose 2018-04-24 00:00:00 Completed [facility] Influenza High Dose 2018-04-24 00:00:00 Completed [facility] Influenza High Dose 2018-04-24 00:00:00 Completed [facility] Influenza High Dose 2018-04-24 00:00:00 Completed [facility] Influenza High Dose 2018-04-24 00:00:00 Completed [facility] Influenza High Dose 2018-04-24 00:00:00 Completed [facility] Influenza High Dose 2018-04-24 00:00:00 Completed [facility] Influenza High Dose 2018-04-24 00:00:00 Completed [facility] Influenza High Dose 2018-04-24 00:00:00 Completed [facility] Influenza High Dose 2018-04-24 00:00:00 Completed [facility] Influenza High Dose 2018-04-24 00:00:00 Completed [facility] Influenza High Dose 2018-04-24 00:00:00 Completed [facility] Influenza High Dose 2018-04-24 00:00:00 Completed [facility] Influenza High Dose 2018-04-24 00:00:00 Completed [facility] Influenza High Dose 2018-04-24 00:00:00 Completed [facility] Influenza High Dose 2018-04-24 00:00:00 Completed [facility] Influenza High Dose 2018-04-24 00:00:00 Completed [facility] Influenza High Dose 2018-04-24 00:00:00 Completed [facility] Influenza High Dose 2018-04-24 00:00:00 Completed [facility] Influenza High Dose 2018-04-24 00:00:00 Completed [facility] Influenza High Dose 2018-04-24 00:00:00 Completed [facility] Influenza High Dose 2018-04-24 00:00:00 Completed [facility] Influenza High Dose 2018-04-24 00:00:00 Completed [facility] Influenza High Dose 2018-04-24 00:00:00 Completed [facility] Influenza High Dose 2018-04-24 00:00:00 Completed [facility] Influenza High Dose 2018-04-24 00:00:00 Completed [facility] Influenza High Dose 2018-04-24 00:00:00 Completed [facility] Influenza High Dose 2018-04-24 00:00:00 Completed [facility] Influenza High Dose 2018-04-24 00:00:00 Completed [facility] Influenza High Dose 2018-04-24 00:00:00 Completed [facility] Influenza High Dose 2018-04-24 00:00:00 Completed [facility] Influenza High Dose 2018-04-24 00:00:00 Completed [facility] Influenza High Dose 2018-04-24 00:00:00 Completed [facility] Influenza High Dose 2018-04-24 00:00:00 Completed [facility] Influenza High Dose 2018-04-24 00:00:00 Completed [facility] Influenza High Dose 2018-04-24 00:00:00 Completed [facility] Influenza High Dose 2018-04-24 00:00:00 Completed [facility] Influenza High Dose 2018-04-24 00:00:00 Completed [facility] Influenza High Dose 2018-04-24 00:00:00 Completed [facility] Influenza High Dose 2018-04-24 00:00:00 Completed [facility] Influenza High Dose 2018-04-24 00:00:00 Completed [facility] Influenza High Dose 2018-04-24 00:00:00 Completed [facility] Influenza High Dose 2018-04-24 00:00:00 Completed [facility] Influenza High Dose 2018-04-24 00:00:00 Completed [facility] Influenza High Dose 2018-04-24 00:00:00 Completed [facility] Influenza High Dose 2018-04-24 00:00:00 Completed [facility] Influenza High Dose 2018-04-24 00:00:00 Completed [facility] Influenza High Dose 2018-04-24 00:00:00 Completed [facility] Influenza High Dose 2018-04-24 00:00:00 Completed [facility] Influenza High Dose 2018-04-24 00:00:00 Completed [facility] Influenza High Dose 2018-04-24 00:00:00 Completed [facility] Influenza High Dose 2018-04-24 00:00:00 Completed [facility] Influenza High Dose 2018-04-24 00:00:00 Completed [facility] Influenza High Dose 2018-04-24 00:00:00 Completed [facility] Influenza High Dose 2018-04-24 00:00:00 Completed [facility] Influenza High Dose 2018-04-24 00:00:00 Completed [facility] Influenza High Dose 2018-04-24 00:00:00 Completed [facility] Influenza High Dose 2018-04-24 00:00:00 Completed [facility] Influenza High Dose 2018-04-24 00:00:00 Completed [facility] Influenza High Dose 2018-04-24 00:00:00 Completed [facility] Influenza High Dose 2018-04-24 00:00:00 Completed [facility] Influenza High Dose 2018-04-24 00:00:00 Completed [facility] Influenza High Dose 2018-04-24 00:00:00 Completed [facility] Influenza High Dose 2018-04-24 00:00:00 Completed [facility] Influenza High Dose 2018-04-24 00:00:00 Completed [facility] Influenza High Dose 2018-04-24 00:00:00 Completed [facility] Influenza High Dose 2018-04-24 00:00:00 Completed [facility] Influenza High Dose 2018-04-24 00:00:00 Completed [facility] Influenza High Dose 2018-04-24 00:00:00 Completed [facility] Influenza High Dose 2018-04-24 00:00:00 Completed [facility] Influenza High Dose 2018-04-24 00:00:00 Completed [facility] Influenza High Dose 2018-04-24 00:00:00 Completed [facility] Influenza High Dose 2018-04-24 00:00:00 Completed [facility] Influenza High Dose 2018-04-24 00:00:00 Completed [facility] Influenza High Dose 2018-04-24 00:00:00 Completed [facility] Influenza High Dose 2018-04-24 00:00:00 Completed [facility] Influenza High Dose 2018-04-24 00:00:00 Completed [facility] Influenza High Dose 2018-04-24 00:00:00 Completed [facility] Influenza High Dose 2018-04-24 00:00:00 Completed [facility] Influenza High Dose 2018-04-24 00:00:00 Completed [facility] Influenza High Dose 2018-04-24 00:00:00 Completed [facility] Influenza High Dose 2018-04-24 00:00:00 Completed [facility] Influenza High Dose 2018-04-24 00:00:00 Completed [facility] Influenza High Dose 2018-04-24 00:00:00 Completed [facility] Influenza High Dose 2018-04-24 00:00:00 Completed [facility] Influenza High Dose 2018-04-24 00:00:00 Completed [facility] Influenza High Dose 2018-04-24 00:00:00 Completed [facility] Influenza High Dose 2018-04-24 00:00:00 Completed [facility] Influenza High Dose 2018-04-24 00:00:00 Completed [facility] Influenza High Dose 2018-04-24 00:00:00 Completed [facility] Influenza High Dose 2018-04-24 00:00:00 Completed [facility] Influenza High Dose 2018-04-24 00:00:00 Completed [facility] Influenza High Dose 2018-04-24 00:00:00 Completed [facility] Influenza High Dose 2018-04-24 00:00:00 Completed [facility] Influenza High Dose 2018-04-24 00:00:00 Completed [facility] Influenza High Dose 2018-04-24 00:00:00 Completed [facility] Influenza High Dose 2018-04-24 00:00:00 Completed [facility] Influenza High Dose 2018-04-24 00:00:00 Completed [facility] Influenza High Dose 2018-04-24 00:00:00 Completed [facility] Influenza, High-Dose, Trivalent, PF (FLUZONE) 2018-04-24 00:00:00 Completed Influenza, High-Dose, Trivalent, PF (FLUZONE) 2018-04-24 00:00:00 Completed Influenza, High-Dose, Trivalent, PF (FLUZONE) 2018-04-24 00:00:00 Completed Pneumococcal Polysaccharide, PPSV23 (PNEUMOVAX) 2017-10-03 00:00:00 Completed [facility] Pneumococcal Polysaccharide, PPSV23 (PNEUMOVAX) 2017-10-03 00:00:00 Completed [facility] Pneumococcal Polysaccharide, PPSV23 (PNEUMOVAX) 2017-10-03 00:00:00 Completed [facility] Pneumococcal Polysaccharide, PPSV23 (PNEUMOVAX) 2017-10-03 00:00:00 Completed [facility] Pneumococcal Polysaccharide, PPSV23 (PNEUMOVAX) 2017-10-03 00:00:00 Completed [facility] Pneumococcal Polysaccharide, PPSV23 (PNEUMOVAX) 2017-10-03 00:00:00 Completed [facility] Pneumococcal Polysaccharide, PPSV23 (PNEUMOVAX) 2017-10-03 00:00:00 Completed [facility] Pneumococcal Polysaccharide, PPSV23 (PNEUMOVAX) 2017-10-03 00:00:00 Completed [facility] Pneumococcal Polysaccharide, PPSV23 (PNEUMOVAX) 2017-10-03 00:00:00 Completed [facility] Pneumococcal Polysaccharide, PPSV23 (PNEUMOVAX) 2017-10-03 00:00:00 Completed [facility] Pneumococcal Polysaccharide, PPSV23 (PNEUMOVAX) 2017-10-03 00:00:00 Completed [facility] Pneumococcal Polysaccharide, PPSV23 (PNEUMOVAX) 2017-10-03 00:00:00 Completed [facility] Pneumococcal Polysaccharide, PPSV23 (PNEUMOVAX) 2017-10-03 00:00:00 Completed [facility] Pneumococcal Polysaccharide, PPSV23 (PNEUMOVAX) 2017-10-03 00:00:00 Completed [facility] Pneumococcal Polysaccharide, PPSV23 (PNEUMOVAX) 2017-10-03 00:00:00 Completed [facility] Pneumococcal Polysaccharide, PPSV23 (PNEUMOVAX) 2017-10-03 00:00:00 Completed [facility] Pneumococcal Polysaccharide, PPSV23 (PNEUMOVAX) 2017-10-03 00:00:00 Completed [facility] Pneumococcal Polysaccharide, PPSV23 (PNEUMOVAX) 2017-10-03 00:00:00 Completed [facility] Pneumococcal Polysaccharide, PPSV23 (PNEUMOVAX) 2017-10-03 00:00:00 Completed [facility] Pneumococcal Polysaccharide, PPSV23 (PNEUMOVAX) 2017-10-03 00:00:00 Completed [facility] Pneumococcal Polysaccharide, PPSV23 (PNEUMOVAX) 2017-10-03 00:00:00 Completed [facility] Pneumococcal Polysaccharide, PPSV23 (PNEUMOVAX) 2017-10-03 00:00:00 Completed [facility] Pneumococcal Polysaccharide, PPSV23 (PNEUMOVAX) 2017-10-03 00:00:00 Completed [facility] Pneumococcal Polysaccharide, PPSV23 (PNEUMOVAX) 2017-10-03 00:00:00 Completed [facility] Pneumococcal Polysaccharide, PPSV23 (PNEUMOVAX) 2017-10-03 00:00:00 Completed [facility] Pneumococcal Polysaccharide, PPSV23 (PNEUMOVAX) 2017-10-03 00:00:00 Completed [facility] Pneumococcal Polysaccharide, PPSV23 (PNEUMOVAX) 2017-10-03 00:00:00 Completed [facility] Pneumococcal Polysaccharide, PPSV23 (PNEUMOVAX) 2017-10-03 00:00:00 Completed [facility] Pneumococcal Polysaccharide, PPSV23 (PNEUMOVAX) 2017-10-03 00:00:00 Completed [facility] Pneumococcal Polysaccharide, PPSV23 (PNEUMOVAX) 2017-10-03 00:00:00 Completed [facility] Pneumococcal Polysaccharide, PPSV23 (PNEUMOVAX) 2017-10-03 00:00:00 Completed [facility] Pneumococcal Polysaccharide, PPSV23 (PNEUMOVAX) 2017-10-03 00:00:00 Completed [facility] Pneumococcal Polysaccharide, PPSV23 (PNEUMOVAX) 2017-10-03 00:00:00 Completed [facility] Pneumococcal Polysaccharide, PPSV23 (PNEUMOVAX) 2017-10-03 00:00:00 Completed [facility] Pneumococcal Polysaccharide, PPSV23 (PNEUMOVAX) 2017-10-03 00:00:00 Completed [facility] Pneumococcal Polysaccharide, PPSV23 (PNEUMOVAX) 2017-10-03 00:00:00 Completed [facility] Pneumococcal Polysaccharide, PPSV23 (PNEUMOVAX) 2017-10-03 00:00:00 Completed [facility] Pneumococcal Polysaccharide, PPSV23 (PNEUMOVAX) 2017-10-03 00:00:00 Completed [facility] Pneumococcal Polysaccharide, PPSV23 (PNEUMOVAX) 2017-10-03 00:00:00 Completed [facility] Pneumococcal Polysaccharide, PPSV23 (PNEUMOVAX) 2017-10-03 00:00:00 Completed [facility] Pneumococcal Polysaccharide, PPSV23 (PNEUMOVAX) 2017-10-03 00:00:00 Completed [facility] Pneumococcal Polysaccharide, PPSV23 (PNEUMOVAX) 2017-10-03 00:00:00 Completed [facility] Pneumococcal Polysaccharide, PPSV23 (PNEUMOVAX) 2017-10-03 00:00:00 Completed [facility] Pneumococcal Polysaccharide, PPSV23 (PNEUMOVAX) 2017-10-03 00:00:00 Completed [facility] Pneumococcal Polysaccharide, PPSV23 (PNEUMOVAX) 2017-10-03 00:00:00 Completed [facility] Pneumococcal Polysaccharide, PPSV23 (PNEUMOVAX) 2017-10-03 00:00:00 Completed [facility] Pneumococcal Polysaccharide, PPSV23 (PNEUMOVAX) 2017-10-03 00:00:00 Completed [facility] Pneumococcal Polysaccharide, PPSV23 (PNEUMOVAX) 2017-10-03 00:00:00 Completed [facility] Pneumococcal Polysaccharide, PPSV23 (PNEUMOVAX) 2017-10-03 00:00:00 Completed [facility] Pneumococcal Polysaccharide, PPSV23 (PNEUMOVAX) 2017-10-03 00:00:00 Completed [facility] Pneumococcal Polysaccharide, PPSV23 (PNEUMOVAX) 2017-10-03 00:00:00 Completed [facility] Pneumococcal Polysaccharide, PPSV23 (PNEUMOVAX) 2017-10-03 00:00:00 Completed [facility] Pneumococcal Polysaccharide, PPSV23 (PNEUMOVAX) 2017-10-03 00:00:00 Completed [facility] Pneumococcal Polysaccharide, PPSV23 (PNEUMOVAX) 2017-10-03 00:00:00 Completed [facility] Pneumococcal Polysaccharide, PPSV23 (PNEUMOVAX) 2017-10-03 00:00:00 Completed [facility] Pneumococcal Polysaccharide, PPSV23 (PNEUMOVAX) 2017-10-03 00:00:00 Completed [facility] Pneumococcal Polysaccharide, PPSV23 (PNEUMOVAX) 2017-10-03 00:00:00 Completed [facility] Pneumococcal Polysaccharide, PPSV23 (PNEUMOVAX) 2017-10-03 00:00:00 Completed [facility] Pneumococcal Polysaccharide, PPSV23 (PNEUMOVAX) 2017-10-03 00:00:00 Completed [facility] Pneumococcal Polysaccharide, PPSV23 (PNEUMOVAX) 2017-10-03 00:00:00 Completed [facility] Pneumococcal Polysaccharide, PPSV23 (PNEUMOVAX) 2017-10-03 00:00:00 Completed [facility] Pneumococcal Polysaccharide, PPSV23 (PNEUMOVAX) 2017-10-03 00:00:00 Completed [facility] Pneumococcal Polysaccharide, PPSV23 (PNEUMOVAX) 2017-10-03 00:00:00 Completed [facility] Pneumococcal Polysaccharide, PPSV23 (PNEUMOVAX) 2017-10-03 00:00:00 Completed [facility] Pneumococcal Polysaccharide, PPSV23 (PNEUMOVAX) 2017-10-03 00:00:00 Completed [facility] Pneumococcal Polysaccharide, PPSV23 (PNEUMOVAX) 2017-10-03 00:00:00 Completed [facility] Pneumococcal Polysaccharide, PPSV23 (PNEUMOVAX) 2017-10-03 00:00:00 Completed [facility] Pneumococcal Polysaccharide, PPSV23 (PNEUMOVAX) 2017-10-03 00:00:00 Completed [facility] Pneumococcal Polysaccharide, PPSV23 (PNEUMOVAX) 2017-10-03 00:00:00 Completed [facility] Pneumococcal Polysaccharide, PPSV23 (PNEUMOVAX) 2017-10-03 00:00:00 Completed [facility] Pneumococcal Polysaccharide, PPSV23 (PNEUMOVAX) 2017-10-03 00:00:00 Completed [facility] Pneumococcal Polysaccharide, PPSV23 (PNEUMOVAX) 2017-10-03 00:00:00 Completed [facility] Pneumococcal Polysaccharide, PPSV23 (PNEUMOVAX) 2017-10-03 00:00:00 Completed [facility] Pneumococcal Polysaccharide, PPSV23 (PNEUMOVAX) 2017-10-03 00:00:00 Completed [facility] Pneumococcal Polysaccharide, PPSV23 (PNEUMOVAX) 2017-10-03 00:00:00 Completed [facility] Pneumococcal Polysaccharide, PPSV23 (PNEUMOVAX) 2017-10-03 00:00:00 Completed [facility] Pneumococcal Polysaccharide, PPSV23 (PNEUMOVAX) 2017-10-03 00:00:00 Completed [facility] Pneumococcal Polysaccharide, PPSV23 (PNEUMOVAX) 2017-10-03 00:00:00 Completed [facility] Pneumococcal Polysaccharide, PPSV23 (PNEUMOVAX) 2017-10-03 00:00:00 Completed [facility] Pneumococcal Polysaccharide, PPSV23 (PNEUMOVAX) 2017-10-03 00:00:00 Completed [facility] Pneumococcal Polysaccharide, PPSV23 (PNEUMOVAX) 2017-10-03 00:00:00 Completed [facility] Pneumococcal Polysaccharide, PPSV23 (PNEUMOVAX) 2017-10-03 00:00:00 Completed [facility] Pneumococcal Polysaccharide, PPSV23 (PNEUMOVAX) 2017-10-03 00:00:00 Completed [facility] Pneumococcal Polysaccharide, PPSV23 (PNEUMOVAX) 2017-10-03 00:00:00 Completed [facility] Pneumococcal Polysaccharide, PPSV23 (PNEUMOVAX) 2017-10-03 00:00:00 Completed [facility] Pneumococcal Polysaccharide, PPSV23 (PNEUMOVAX) 2017-10-03 00:00:00 Completed [facility] Pneumococcal Polysaccharide, PPSV23 (PNEUMOVAX) 2017-10-03 00:00:00 Completed [facility] Pneumococcal Polysaccharide, PPSV23 (PNEUMOVAX) 2017-10-03 00:00:00 Completed [facility] Pneumococcal Polysaccharide, PPSV23 (PNEUMOVAX) 2017-10-03 00:00:00 Completed [facility] Pneumococcal Polysaccharide, PPSV23 (PNEUMOVAX) 2017-10-03 00:00:00 Completed [facility] Pneumococcal Polysaccharide, PPSV23 (PNEUMOVAX) 2017-10-03 00:00:00 Completed [facility] Pneumococcal Polysaccharide, PPSV23 (PNEUMOVAX) 2017-10-03 00:00:00 Completed [facility] Pneumococcal Polysaccharide, PPSV23 (PNEUMOVAX) 2017-10-03 00:00:00 Completed [facility] Pneumococcal Polysaccharide, PPSV23 (PNEUMOVAX) 2017-10-03 00:00:00 Completed [facility] Pneumococcal Polysaccharide, PPSV23 (PNEUMOVAX) 2017-10-03 00:00:00 Completed [facility] Pneumococcal Polysaccharide, PPSV23 (PNEUMOVAX) 2017-10-03 00:00:00 Completed [facility] Pneumococcal Polysaccharide, PPSV23 (PNEUMOVAX) 2017-10-03 00:00:00 Completed [facility] Pneumococcal Polysaccharide, PPSV23 (PNEUMOVAX) 2017-10-03 00:00:00 Completed [facility] Pneumococcal Polysaccharide, PPSV23 (PNEUMOVAX) 2017-10-03 00:00:00 Completed [facility] Pneumococcal Polysaccharide, PPSV23 (PNEUMOVAX) 2017-10-03 00:00:00 Completed [facility] Pneumococcal Polysaccharide, PPSV23 (PNEUMOVAX) 2017-10-03 00:00:00 Completed [facility] Pneumococcal Polysaccharide, PPSV23 (PNEUMOVAX) 2017-10-03 00:00:00 Completed [facility] Pneumococcal Polysaccharide, PPSV23 (PNEUMOVAX) 2017-10-03 00:00:00 Completed [facility] Pneumococcal Polysaccharide, PPSV23 (PNEUMOVAX) 2017-10-03 00:00:00 Completed [facility] Pneumococcal Polysaccharide, PPSV23 (PNEUMOVAX) 2017-10-03 00:00:00 Completed [facility] Pneumococcal Polysaccharide, PPSV23 (PNEUMOVAX) 2017-10-03 00:00:00 Completed [facility] Pneumococcal Polysaccharide, PPSV23 (PNEUMOVAX) 2017-10-03 00:00:00 Completed [facility] Pneumococcal Polysaccharide, PPSV23 (PNEUMOVAX) 2017-10-03 00:00:00 Completed [facility] Pneumococcal Polysaccharide, PPSV23 (PNEUMOVAX) 2017-10-03 00:00:00 Completed [facility] Pneumococcal Polysaccharide, PPSV23 (PNEUMOVAX) 2017-10-03 00:00:00 Completed [facility] Pneumococcal Polysaccharide, PPSV23 (PNEUMOVAX) 2017-10-03 00:00:00 Completed [facility] Pneumococcal Polysaccharide, PPSV23 (PNEUMOVAX) 2017-10-03 00:00:00 Completed [facility] Pneumococcal Polysaccharide, PPSV23 (PNEUMOVAX) 2017-10-03 00:00:00 Completed [facility] Pneumococcal Polysaccharide, PPSV23 (PNEUMOVAX) 2017-10-03 00:00:00 Completed [facility] Pneumococcal Polysaccharide, PPSV23 (PNEUMOVAX) 2017-10-03 00:00:00 Completed [facility] Pneumococcal Polysaccharide, PPSV23 (PNEUMOVAX) 2017-10-03 00:00:00 Completed [facility] Pneumococcal Polysaccharide, PPSV23 (PNEUMOVAX) 2017-10-03 00:00:00 Completed [facility] Pneumococcal Polysaccharide, PPSV23 (PNEUMOVAX) 2017-10-03 00:00:00 Completed [facility] Pneumococcal Polysaccharide, PPSV23 (PNEUMOVAX) 2017-10-03 00:00:00 Completed [facility] Pneumococcal Polysaccharide, PPSV23 (PNEUMOVAX) 2017-10-03 00:00:00 Completed [facility] Pneumococcal Polysaccharide, PPSV23 (PNEUMOVAX) 2017-10-03 00:00:00 Completed [facility] Pneumococcal Polysaccharide, PPSV23 (PNEUMOVAX) 2017-10-03 00:00:00 Completed [facility] Pneumococcal Polysaccharide, PPSV23 (PNEUMOVAX) 2017-10-03 00:00:00 Completed [facility] Pneumococcal Polysaccharide, PPSV23 (PNEUMOVAX) 2017-10-03 00:00:00 Completed [facility] Pneumococcal Polysaccharide, PPSV23 (PNEUMOVAX) 2017-10-03 00:00:00 Completed [facility] Pneumococcal Polysaccharide, PPSV23 (PNEUMOVAX) 2017-10-03 00:00:00 Completed [facility] Pneumococcal Unspecified 2017-10-03 00:00:00 Completed [facility] Pneumococcal Polysaccharide, PPSV23 (PNEUMOVAX) 2017-10-03 00:00:00 Completed Pneumococcal Polysaccharide, PPSV23 (PNEUMOVAX) 2017-10-03 00:00:00 Completed Pneumococcal Unspecified 2017-10-03 00:00:00 Completed [facility] Pneumococcal Polysaccharide, PPSV23 (PNEUMOVAX) 2017-10-03 00:00:00 Completed Pneumococcal Unspecified 2017-10-03 00:00:00 Completed [facility] Influenza High Dose 2017-04-13 00:00:00 Completed [facility] Influenza High Dose 2017-04-13 00:00:00 Completed [facility] Influenza High Dose 2017-04-13 00:00:00 Completed [facility] Influenza High Dose 2017-04-13 00:00:00 Completed [facility] Influenza High Dose 2017-04-13 00:00:00 Completed [facility] Influenza High Dose 2017-04-13 00:00:00 Completed [facility] Influenza High Dose 2017-04-13 00:00:00 Completed [facility] Influenza High Dose 2017-04-13 00:00:00 Completed [facility] Influenza High Dose 2017-04-13 00:00:00 Completed [facility] Influenza High Dose 2017-04-13 00:00:00 Completed [facility] Influenza High Dose 2017-04-13 00:00:00 Completed [facility] Influenza High Dose 2017-04-13 00:00:00 Completed [facility] Influenza High Dose 2017-04-13 00:00:00 Completed [facility] Influenza High Dose 2017-04-13 00:00:00 Completed [facility] Influenza High Dose 2017-04-13 00:00:00 Completed [facility] Influenza High Dose 2017-04-13 00:00:00 Completed [facility] Influenza High Dose 2017-04-13 00:00:00 Completed [facility] Influenza High Dose 2017-04-13 00:00:00 Completed [facility] Influenza High Dose 2017-04-13 00:00:00 Completed [facility] Influenza High Dose 2017-04-13 00:00:00 Completed [facility] Influenza High Dose 2017-04-13 00:00:00 Completed [facility] Influenza High Dose 2017-04-13 00:00:00 Completed [facility] Influenza High Dose 2017-04-13 00:00:00 Completed [facility] Influenza High Dose 2017-04-13 00:00:00 Completed [facility] Influenza High Dose 2017-04-13 00:00:00 Completed [facility] Influenza High Dose 2017-04-13 00:00:00 Completed [facility] Influenza High Dose 2017-04-13 00:00:00 Completed [facility] Influenza High Dose 2017-04-13 00:00:00 Completed [facility] Influenza High Dose 2017-04-13 00:00:00 Completed [facility] Influenza High Dose 2017-04-13 00:00:00 Completed [facility] Influenza High Dose 2017-04-13 00:00:00 Completed [facility] Influenza High Dose 2017-04-13 00:00:00 Completed [facility] Influenza High Dose 2017-04-13 00:00:00 Completed [facility] Influenza High Dose 2017-04-13 00:00:00 Completed [facility] Influenza High Dose 2017-04-13 00:00:00 Completed [facility] Influenza High Dose 2017-04-13 00:00:00 Completed [facility] Influenza High Dose 2017-04-13 00:00:00 Completed [facility] Influenza High Dose 2017-04-13 00:00:00 Completed [facility] Influenza High Dose 2017-04-13 00:00:00 Completed [facility] Influenza High Dose 2017-04-13 00:00:00 Completed [facility] Influenza High Dose 2017-04-13 00:00:00 Completed [facility] Influenza High Dose 2017-04-13 00:00:00 Completed [facility] Influenza High Dose 2017-04-13 00:00:00 Completed [facility] Influenza High Dose 2017-04-13 00:00:00 Completed [facility] Influenza High Dose 2017-04-13 00:00:00 Completed [facility] Influenza High Dose 2017-04-13 00:00:00 Completed [facility] Influenza High Dose 2017-04-13 00:00:00 Completed [facility] Influenza High Dose 2017-04-13 00:00:00 Completed [facility] Influenza High Dose 2017-04-13 00:00:00 Completed [facility] Influenza High Dose 2017-04-13 00:00:00 Completed [facility] Influenza High Dose 2017-04-13 00:00:00 Completed [facility] Influenza High Dose 2017-04-13 00:00:00 Completed [facility] Influenza High Dose 2017-04-13 00:00:00 Completed [facility] Influenza High Dose 2017-04-13 00:00:00 Completed [facility] Influenza High Dose 2017-04-13 00:00:00 Completed [facility] Influenza High Dose 2017-04-13 00:00:00 Completed [facility] Influenza High Dose 2017-04-13 00:00:00 Completed [facility] Influenza High Dose 2017-04-13 00:00:00 Completed [facility] Influenza High Dose 2017-04-13 00:00:00 Completed [facility] Influenza High Dose 2017-04-13 00:00:00 Completed [facility] Influenza High Dose 2017-04-13 00:00:00 Completed [facility] Influenza High Dose 2017-04-13 00:00:00 Completed [facility] Influenza High Dose 2017-04-13 00:00:00 Completed [facility] Influenza High Dose 2017-04-13 00:00:00 Completed [facility] Influenza High Dose 2017-04-13 00:00:00 Completed [facility] Influenza High Dose 2017-04-13 00:00:00 Completed [facility] Influenza High Dose 2017-04-13 00:00:00 Completed [facility] Influenza High Dose 2017-04-13 00:00:00 Completed [facility] Influenza High Dose 2017-04-13 00:00:00 Completed [facility] Influenza High Dose 2017-04-13 00:00:00 Completed [facility] Influenza High Dose 2017-04-13 00:00:00 Completed [facility] Influenza High Dose 2017-04-13 00:00:00 Completed [facility] Influenza High Dose 2017-04-13 00:00:00 Completed [facility] Influenza High Dose 2017-04-13 00:00:00 Completed [facility] Influenza High Dose 2017-04-13 00:00:00 Completed [facility] Influenza High Dose 2017-04-13 00:00:00 Completed [facility] Influenza High Dose 2017-04-13 00:00:00 Completed [facility] Influenza High Dose 2017-04-13 00:00:00 Completed [facility] Influenza High Dose 2017-04-13 00:00:00 Completed [facility] Influenza High Dose 2017-04-13 00:00:00 Completed [facility] Influenza High Dose 2017-04-13 00:00:00 Completed [facility] Influenza High Dose 2017-04-13 00:00:00 Completed [facility] Influenza High Dose 2017-04-13 00:00:00 Completed [facility] Influenza High Dose 2017-04-13 00:00:00 Completed [facility] Influenza High Dose 2017-04-13 00:00:00 Completed [facility] Influenza High Dose 2017-04-13 00:00:00 Completed [facility] Influenza High Dose 2017-04-13 00:00:00 Completed [facility] Influenza High Dose 2017-04-13 00:00:00 Completed [facility] Influenza High Dose 2017-04-13 00:00:00 Completed [facility] Influenza High Dose 2017-04-13 00:00:00 Completed [facility] Influenza High Dose 2017-04-13 00:00:00 Completed [facility] Influenza High Dose 2017-04-13 00:00:00 Completed [facility] Influenza High Dose 2017-04-13 00:00:00 Completed [facility] Influenza High Dose 2017-04-13 00:00:00 Completed [facility] Influenza High Dose 2017-04-13 00:00:00 Completed [facility] Influenza High Dose 2017-04-13 00:00:00 Completed [facility] Influenza High Dose 2017-04-13 00:00:00 Completed [facility] Influenza High Dose 2017-04-13 00:00:00 Completed [facility] Influenza High Dose 2017-04-13 00:00:00 Completed [facility] Influenza High Dose 2017-04-13 00:00:00 Completed [facility] Influenza High Dose 2017-04-13 00:00:00 Completed [facility] Influenza High Dose 2017-04-13 00:00:00 Completed [facility] Influenza High Dose 2017-04-13 00:00:00 Completed [facility] Influenza High Dose 2017-04-13 00:00:00 Completed [facility] Influenza High Dose 2017-04-13 00:00:00 Completed [facility] Influenza High Dose 2017-04-13 00:00:00 Completed [facility] Influenza High Dose 2017-04-13 00:00:00 Completed [facility] Influenza High Dose 2017-04-13 00:00:00 Completed [facility] Influenza High Dose 2017-04-13 00:00:00 Completed [facility] Influenza High Dose 2017-04-13 00:00:00 Completed [facility] Influenza High Dose 2017-04-13 00:00:00 Completed [facility] Influenza High Dose 2017-04-13 00:00:00 Completed [facility] Influenza High Dose 2017-04-13 00:00:00 Completed [facility] Influenza High Dose 2017-04-13 00:00:00 Completed [facility] Influenza High Dose 2017-04-13 00:00:00 Completed [facility] Influenza High Dose 2017-04-13 00:00:00 Completed [facility] Influenza High Dose 2017-04-13 00:00:00 Completed [facility] Influenza High Dose 2017-04-13 00:00:00 Completed [facility] Influenza High Dose 2017-04-13 00:00:00 Completed [facility] Influenza High Dose 2017-04-13 00:00:00 Completed [facility] Influenza High Dose 2017-04-13 00:00:00 Completed [facility] Influenza High Dose 2017-04-13 00:00:00 Completed [facility] Influenza High Dose 2017-04-13 00:00:00 Completed [facility] Influenza High Dose 2017-04-13 00:00:00 Completed [facility] Influenza High Dose 2017-04-13 00:00:00 Completed [facility] Influenza High Dose 2017-04-13 00:00:00 Completed [facility] Influenza, High-Dose, Trivalent, PF (FLUZONE) 2017-04-13 00:00:00 Completed Influenza, High-Dose, Trivalent, PF (FLUZONE) 2017-04-13 00:00:00 Completed Influenza, High-Dose, Trivalent, PF (FLUZONE) 2017-04-13 00:00:00 Completed Pneumococcal 13 Conjugate, PCV13 (Prevnar 13) 2016-07-12 00:00:00 Completed [facility] Influenza High Dose 2016-07-12 00:00:00 Completed [facility] Pneumococcal Polysaccharide, PPSV23 (PNEUMOVAX) 2016-07-12 00:00:00 Completed [facility] Pneumococcal 13 Conjugate, PCV13 (Prevnar 13) 2016-07-12 00:00:00 Completed [facility] Influenza High Dose 2016-07-12 00:00:00 Completed [facility] Pneumococcal Polysaccharide, PPSV23 (PNEUMOVAX) 2016-07-12 00:00:00 Completed [facility] Pneumococcal 13 Conjugate, PCV13 (Prevnar 13) 2016-07-12 00:00:00 Completed [facility] Influenza High Dose 2016-07-12 00:00:00 Completed [facility] Pneumococcal Polysaccharide, PPSV23 (PNEUMOVAX) 2016-07-12 00:00:00 Completed [facility] Pneumococcal 13 Conjugate, PCV13 (Prevnar 13) 2016-07-12 00:00:00 Completed [facility] Influenza High Dose 2016-07-12 00:00:00 Completed [facility] Pneumococcal Polysaccharide, PPSV23 (PNEUMOVAX) 2016-07-12 00:00:00 Completed [facility] Pneumococcal 13 Conjugate, PCV13 (Prevnar 13) 2016-07-12 00:00:00 Completed [facility] Influenza High Dose 2016-07-12 00:00:00 Completed [facility] Pneumococcal Polysaccharide, PPSV23 (PNEUMOVAX) 2016-07-12 00:00:00 Completed [facility] Pneumococcal 13 Conjugate, PCV13 (Prevnar 13) 2016-07-12 00:00:00 Completed [facility] Influenza High Dose 2016-07-12 00:00:00 Completed [facility] Pneumococcal Polysaccharide, PPSV23 (PNEUMOVAX) 2016-07-12 00:00:00 Completed [facility] Pneumococcal 13 Conjugate, PCV13 (Prevnar 13) 2016-07-12 00:00:00 Completed [facility] Influenza High Dose 2016-07-12 00:00:00 Completed [facility] Pneumococcal Polysaccharide, PPSV23 (PNEUMOVAX) 2016-07-12 00:00:00 Completed [facility] Pneumococcal 13 Conjugate, PCV13 (Prevnar 13) 2016-07-12 00:00:00 Completed [facility] Influenza High Dose 2016-07-12 00:00:00 Completed [facility] Pneumococcal Polysaccharide, PPSV23 (PNEUMOVAX) 2016-07-12 00:00:00 Completed [facility] Pneumococcal 13 Conjugate, PCV13 (Prevnar 13) 2016-07-12 00:00:00 Completed [facility] Influenza High Dose 2016-07-12 00:00:00 Completed [facility] Pneumococcal Polysaccharide, PPSV23 (PNEUMOVAX) 2016-07-12 00:00:00 Completed [facility] Pneumococcal 13 Conjugate, PCV13 (Prevnar 13) 2016-07-12 00:00:00 Completed [facility] Influenza High Dose 2016-07-12 00:00:00 Completed [facility] Pneumococcal Polysaccharide, PPSV23 (PNEUMOVAX) 2016-07-12 00:00:00 Completed [facility] Pneumococcal 13 Conjugate, PCV13 (Prevnar 13) 2016-07-12 00:00:00 Completed [facility] Influenza High Dose 2016-07-12 00:00:00 Completed [facility] Pneumococcal Polysaccharide, PPSV23 (PNEUMOVAX) 2016-07-12 00:00:00 Completed [facility] Pneumococcal 13 Conjugate, PCV13 (Prevnar 13) 2016-07-12 00:00:00 Completed [facility] Influenza High Dose 2016-07-12 00:00:00 Completed [facility] Pneumococcal Polysaccharide, PPSV23 (PNEUMOVAX) 2016-07-12 00:00:00 Completed [facility] Pneumococcal 13 Conjugate, PCV13 (Prevnar 13) 2016-07-12 00:00:00 Completed [facility] Influenza High Dose 2016-07-12 00:00:00 Completed [facility] Pneumococcal Polysaccharide, PPSV23 (PNEUMOVAX) 2016-07-12 00:00:00 Completed [facility] Pneumococcal 13 Conjugate, PCV13 (Prevnar 13) 2016-07-12 00:00:00 Completed [facility] Influenza High Dose 2016-07-12 00:00:00 Completed [facility] Pneumococcal Polysaccharide, PPSV23 (PNEUMOVAX) 2016-07-12 00:00:00 Completed [facility] Pneumococcal 13 Conjugate, PCV13 (Prevnar 13) 2016-07-12 00:00:00 Completed [facility] Influenza High Dose 2016-07-12 00:00:00 Completed [facility] Pneumococcal Polysaccharide, PPSV23 (PNEUMOVAX) 2016-07-12 00:00:00 Completed [facility] Pneumococcal 13 Conjugate, PCV13 (Prevnar 13) 2016-07-12 00:00:00 Completed [facility] Influenza High Dose 2016-07-12 00:00:00 Completed [facility] Pneumococcal Polysaccharide, PPSV23 (PNEUMOVAX) 2016-07-12 00:00:00 Completed [facility] Pneumococcal 13 Conjugate, PCV13 (Prevnar 13) 2016-07-12 00:00:00 Completed [facility] Influenza High Dose 2016-07-12 00:00:00 Completed [facility] Pneumococcal Polysaccharide, PPSV23 (PNEUMOVAX) 2016-07-12 00:00:00 Completed [facility] Pneumococcal 13 Conjugate, PCV13 (Prevnar 13) 2016-07-12 00:00:00 Completed [facility] Influenza High Dose 2016-07-12 00:00:00 Completed [facility] Pneumococcal Polysaccharide, PPSV23 (PNEUMOVAX) 2016-07-12 00:00:00 Completed [facility] Pneumococcal 13 Conjugate, PCV13 (Prevnar 13) 2016-07-12 00:00:00 Completed [facility] Influenza High Dose 2016-07-12 00:00:00 Completed [facility] Pneumococcal Polysaccharide, PPSV23 (PNEUMOVAX) 2016-07-12 00:00:00 Completed [facility] Pneumococcal 13 Conjugate, PCV13 (Prevnar 13) 2016-07-12 00:00:00 Completed [facility] Influenza High Dose 2016-07-12 00:00:00 Completed [facility] Pneumococcal Polysaccharide, PPSV23 (PNEUMOVAX) 2016-07-12 00:00:00 Completed [facility] Pneumococcal 13 Conjugate, PCV13 (Prevnar 13) 2016-07-12 00:00:00 Completed [facility] Influenza High Dose 2016-07-12 00:00:00 Completed [facility] Pneumococcal Polysaccharide, PPSV23 (PNEUMOVAX) 2016-07-12 00:00:00 Completed [facility] Pneumococcal 13 Conjugate, PCV13 (Prevnar 13) 2016-07-12 00:00:00 Completed [facility] Influenza High Dose 2016-07-12 00:00:00 Completed [facility] Pneumococcal Polysaccharide, PPSV23 (PNEUMOVAX) 2016-07-12 00:00:00 Completed [facility] Pneumococcal 13 Conjugate, PCV13 (Prevnar 13) 2016-07-12 00:00:00 Completed [facility] Influenza High Dose 2016-07-12 00:00:00 Completed [facility] Pneumococcal Polysaccharide, PPSV23 (PNEUMOVAX) 2016-07-12 00:00:00 Completed [facility] Pneumococcal 13 Conjugate, PCV13 (Prevnar 13) 2016-07-12 00:00:00 Completed [facility] Influenza High Dose 2016-07-12 00:00:00 Completed [facility] Pneumococcal Polysaccharide, PPSV23 (PNEUMOVAX) 2016-07-12 00:00:00 Completed [facility] Pneumococcal 13 Conjugate, PCV13 (Prevnar 13) 2016-07-12 00:00:00 Completed [facility] Influenza High Dose 2016-07-12 00:00:00 Completed [facility] Pneumococcal Polysaccharide, PPSV23 (PNEUMOVAX) 2016-07-12 00:00:00 Completed [facility] Pneumococcal 13 Conjugate, PCV13 (Prevnar 13) 2016-07-12 00:00:00 Completed [facility] Influenza High Dose 2016-07-12 00:00:00 Completed [facility] Pneumococcal Polysaccharide, PPSV23 (PNEUMOVAX) 2016-07-12 00:00:00 Completed [facility] Pneumococcal 13 Conjugate, PCV13 (Prevnar 13) 2016-07-12 00:00:00 Completed [facility] Influenza High Dose 2016-07-12 00:00:00 Completed [facility] Pneumococcal Polysaccharide, PPSV23 (PNEUMOVAX) 2016-07-12 00:00:00 Completed [facility] Pneumococcal 13 Conjugate, PCV13 (Prevnar 13) 2016-07-12 00:00:00 Completed [facility] Influenza High Dose 2016-07-12 00:00:00 Completed [facility] Pneumococcal Polysaccharide, PPSV23 (PNEUMOVAX) 2016-07-12 00:00:00 Completed [facility] Pneumococcal 13 Conjugate, PCV13 (Prevnar 13) 2016-07-12 00:00:00 Completed [facility] Influenza High Dose 2016-07-12 00:00:00 Completed [facility] Pneumococcal Polysaccharide, PPSV23 (PNEUMOVAX) 2016-07-12 00:00:00 Completed [facility] Pneumococcal 13 Conjugate, PCV13 (Prevnar 13) 2016-07-12 00:00:00 Completed [facility] Influenza High Dose 2016-07-12 00:00:00 Completed [facility] Pneumococcal Polysaccharide, PPSV23 (PNEUMOVAX) 2016-07-12 00:00:00 Completed [facility] Pneumococcal 13 Conjugate, PCV13 (Prevnar 13) 2016-07-12 00:00:00 Completed [facility] Influenza High Dose 2016-07-12 00:00:00 Completed [facility] Pneumococcal Polysaccharide, PPSV23 (PNEUMOVAX) 2016-07-12 00:00:00 Completed [facility] Pneumococcal 13 Conjugate, PCV13 (Prevnar 13) 2016-07-12 00:00:00 Completed [facility] Influenza High Dose 2016-07-12 00:00:00 Completed [facility] Pneumococcal Polysaccharide, PPSV23 (PNEUMOVAX) 2016-07-12 00:00:00 Completed [facility] Pneumococcal 13 Conjugate, PCV13 (Prevnar 13) 2016-07-12 00:00:00 Completed [facility] Influenza High Dose 2016-07-12 00:00:00 Completed [facility] Pneumococcal Polysaccharide, PPSV23 (PNEUMOVAX) 2016-07-12 00:00:00 Completed [facility] Pneumococcal 13 Conjugate, PCV13 (Prevnar 13) 2016-07-12 00:00:00 Completed [facility] Influenza High Dose 2016-07-12 00:00:00 Completed [facility] Pneumococcal Polysaccharide, PPSV23 (PNEUMOVAX) 2016-07-12 00:00:00 Completed [facility] Pneumococcal 13 Conjugate, PCV13 (Prevnar 13) 2016-07-12 00:00:00 Completed [facility] Influenza High Dose 2016-07-12 00:00:00 Completed [facility] Pneumococcal Polysaccharide, PPSV23 (PNEUMOVAX) 2016-07-12 00:00:00 Completed [facility] Pneumococcal 13 Conjugate, PCV13 (Prevnar 13) 2016-07-12 00:00:00 Completed [facility] Influenza High Dose 2016-07-12 00:00:00 Completed [facility] Pneumococcal Polysaccharide, PPSV23 (PNEUMOVAX) 2016-07-12 00:00:00 Completed [facility] Pneumococcal 13 Conjugate, PCV13 (Prevnar 13) 2016-07-12 00:00:00 Completed [facility] Influenza High Dose 2016-07-12 00:00:00 Completed [facility] Pneumococcal Polysaccharide, PPSV23 (PNEUMOVAX) 2016-07-12 00:00:00 Completed [facility] Pneumococcal 13 Conjugate, PCV13 (Prevnar 13) 2016-07-12 00:00:00 Completed [facility] Influenza High Dose 2016-07-12 00:00:00 Completed [facility] Pneumococcal Polysaccharide, PPSV23 (PNEUMOVAX) 2016-07-12 00:00:00 Completed [facility] Pneumococcal 13 Conjugate, PCV13 (Prevnar 13) 2016-07-12 00:00:00 Completed [facility] Influenza High Dose 2016-07-12 00:00:00 Completed [facility] Pneumococcal Polysaccharide, PPSV23 (PNEUMOVAX) 2016-07-12 00:00:00 Completed [facility] Pneumococcal 13 Conjugate, PCV13 (Prevnar 13) 2016-07-12 00:00:00 Completed [facility] Influenza High Dose 2016-07-12 00:00:00 Completed [facility] Pneumococcal Polysaccharide, PPSV23 (PNEUMOVAX) 2016-07-12 00:00:00 Completed [facility] Pneumococcal 13 Conjugate, PCV13 (Prevnar 13) 2016-07-12 00:00:00 Completed [facility] Influenza High Dose 2016-07-12 00:00:00 Completed [facility] Pneumococcal Polysaccharide, PPSV23 (PNEUMOVAX) 2016-07-12 00:00:00 Completed [facility] Pneumococcal 13 Conjugate, PCV13 (Prevnar 13) 2016-07-12 00:00:00 Completed [facility] Influenza High Dose 2016-07-12 00:00:00 Completed [facility] Pneumococcal Polysaccharide, PPSV23 (PNEUMOVAX) 2016-07-12 00:00:00 Completed [facility] Pneumococcal 13 Conjugate, PCV13 (Prevnar 13) 2016-07-12 00:00:00 Completed [facility] Influenza High Dose 2016-07-12 00:00:00 Completed [facility] Pneumococcal Polysaccharide, PPSV23 (PNEUMOVAX) 2016-07-12 00:00:00 Completed [facility] Pneumococcal 13 Conjugate, PCV13 (Prevnar 13) 2016-07-12 00:00:00 Completed [facility] Influenza High Dose 2016-07-12 00:00:00 Completed [facility] Pneumococcal Polysaccharide, PPSV23 (PNEUMOVAX) 2016-07-12 00:00:00 Completed [facility] Pneumococcal 13 Conjugate, PCV13 (Prevnar 13) 2016-07-12 00:00:00 Completed [facility] Influenza High Dose 2016-07-12 00:00:00 Completed [facility] Pneumococcal Polysaccharide, PPSV23 (PNEUMOVAX) 2016-07-12 00:00:00 Completed [facility] Pneumococcal 13 Conjugate, PCV13 (Prevnar 13) 2016-07-12 00:00:00 Completed [facility] Influenza High Dose 2016-07-12 00:00:00 Completed [facility] Pneumococcal Polysaccharide, PPSV23 (PNEUMOVAX) 2016-07-12 00:00:00 Completed [facility] Pneumococcal 13 Conjugate, PCV13 (Prevnar 13) 2016-07-12 00:00:00 Completed [facility] Influenza High Dose 2016-07-12 00:00:00 Completed [facility] Pneumococcal Polysaccharide, PPSV23 (PNEUMOVAX) 2016-07-12 00:00:00 Completed [facility] Pneumococcal 13 Conjugate, PCV13 (Prevnar 13) 2016-07-12 00:00:00 Completed [facility] Influenza High Dose 2016-07-12 00:00:00 Completed [facility] Pneumococcal Polysaccharide, PPSV23 (PNEUMOVAX) 2016-07-12 00:00:00 Completed [facility] Pneumococcal 13 Conjugate, PCV13 (Prevnar 13) 2016-07-12 00:00:00 Completed [facility] Influenza High Dose 2016-07-12 00:00:00 Completed [facility] Pneumococcal Polysaccharide, PPSV23 (PNEUMOVAX) 2016-07-12 00:00:00 Completed [facility] Pneumococcal 13 Conjugate, PCV13 (Prevnar 13) 2016-07-12 00:00:00 Completed [facility] Influenza High Dose 2016-07-12 00:00:00 Completed [facility] Pneumococcal Polysaccharide, PPSV23 (PNEUMOVAX) 2016-07-12 00:00:00 Completed [facility] Pneumococcal 13 Conjugate, PCV13 (Prevnar 13) 2016-07-12 00:00:00 Completed [facility] Influenza High Dose 2016-07-12 00:00:00 Completed [facility] Pneumococcal Polysaccharide, PPSV23 (PNEUMOVAX) 2016-07-12 00:00:00 Completed [facility] Pneumococcal 13 Conjugate, PCV13 (Prevnar 13) 2016-07-12 00:00:00 Completed [facility] Influenza High Dose 2016-07-12 00:00:00 Completed [facility] Pneumococcal Polysaccharide, PPSV23 (PNEUMOVAX) 2016-07-12 00:00:00 Completed [facility] Pneumococcal 13 Conjugate, PCV13 (Prevnar 13) 2016-07-12 00:00:00 Completed [facility] Influenza High Dose 2016-07-12 00:00:00 Completed [facility] Pneumococcal Polysaccharide, PPSV23 (PNEUMOVAX) 2016-07-12 00:00:00 Completed [facility] Pneumococcal 13 Conjugate, PCV13 (Prevnar 13) 2016-07-12 00:00:00 Completed [facility] Influenza High Dose 2016-07-12 00:00:00 Completed [facility] Pneumococcal Polysaccharide, PPSV23 (PNEUMOVAX) 2016-07-12 00:00:00 Completed [facility] Pneumococcal 13 Conjugate, PCV13 (Prevnar 13) 2016-07-12 00:00:00 Completed [facility] Influenza High Dose 2016-07-12 00:00:00 Completed [facility] Pneumococcal Polysaccharide, PPSV23 (PNEUMOVAX) 2016-07-12 00:00:00 Completed [facility] Pneumococcal 13 Conjugate, PCV13 (Prevnar 13) 2016-07-12 00:00:00 Completed [facility] Influenza High Dose 2016-07-12 00:00:00 Completed [facility] Pneumococcal Polysaccharide, PPSV23 (PNEUMOVAX) 2016-07-12 00:00:00 Completed [facility] Pneumococcal 13 Conjugate, PCV13 (Prevnar 13) 2016-07-12 00:00:00 Completed [facility] Influenza High Dose 2016-07-12 00:00:00 Completed [facility] Pneumococcal Polysaccharide, PPSV23 (PNEUMOVAX) 2016-07-12 00:00:00 Completed [facility] Pneumococcal 13 Conjugate, PCV13 (Prevnar 13) 2016-07-12 00:00:00 Completed [facility] Influenza High Dose 2016-07-12 00:00:00 Completed [facility] Pneumococcal Polysaccharide, PPSV23 (PNEUMOVAX) 2016-07-12 00:00:00 Completed [facility] Pneumococcal 13 Conjugate, PCV13 (Prevnar 13) 2016-07-12 00:00:00 Completed [facility] Influenza High Dose 2016-07-12 00:00:00 Completed [facility] Pneumococcal Polysaccharide, PPSV23 (PNEUMOVAX) 2016-07-12 00:00:00 Completed [facility] Pneumococcal 13 Conjugate, PCV13 (Prevnar 13) 2016-07-12 00:00:00 Completed [facility] Influenza High Dose 2016-07-12 00:00:00 Completed [facility] Pneumococcal Polysaccharide, PPSV23 (PNEUMOVAX) 2016-07-12 00:00:00 Completed [facility] Pneumococcal 13 Conjugate, PCV13 (Prevnar 13) 2016-07-12 00:00:00 Completed [facility] Influenza High Dose 2016-07-12 00:00:00 Completed [facility] Pneumococcal Polysaccharide, PPSV23 (PNEUMOVAX) 2016-07-12 00:00:00 Completed [facility] Pneumococcal 13 Conjugate, PCV13 (Prevnar 13) 2016-07-12 00:00:00 Completed [facility] Influenza High Dose 2016-07-12 00:00:00 Completed [facility] Pneumococcal Polysaccharide, PPSV23 (PNEUMOVAX) 2016-07-12 00:00:00 Completed [facility] Pneumococcal 13 Conjugate, PCV13 (Prevnar 13) 2016-07-12 00:00:00 Completed [facility] Influenza High Dose 2016-07-12 00:00:00 Completed [facility] Pneumococcal Polysaccharide, PPSV23 (PNEUMOVAX) 2016-07-12 00:00:00 Completed [facility] Pneumococcal 13 Conjugate, PCV13 (Prevnar 13) 2016-07-12 00:00:00 Completed [facility] Influenza High Dose 2016-07-12 00:00:00 Completed [facility] Pneumococcal Polysaccharide, PPSV23 (PNEUMOVAX) 2016-07-12 00:00:00 Completed [facility] Pneumococcal 13 Conjugate, PCV13 (Prevnar 13) 2016-07-12 00:00:00 Completed [facility] Influenza High Dose 2016-07-12 00:00:00 Completed [facility] Pneumococcal Polysaccharide, PPSV23 (PNEUMOVAX) 2016-07-12 00:00:00 Completed [facility] Pneumococcal 13 Conjugate, PCV13 (Prevnar 13) 2016-07-12 00:00:00 Completed [facility] Influenza High Dose 2016-07-12 00:00:00 Completed [facility] Pneumococcal Polysaccharide, PPSV23 (PNEUMOVAX) 2016-07-12 00:00:00 Completed [facility] Pneumococcal 13 Conjugate, PCV13 (Prevnar 13) 2016-07-12 00:00:00 Completed [facility] Influenza High Dose 2016-07-12 00:00:00 Completed [facility] Pneumococcal Polysaccharide, PPSV23 (PNEUMOVAX) 2016-07-12 00:00:00 Completed [facility] Pneumococcal 13 Conjugate, PCV13 (Prevnar 13) 2016-07-12 00:00:00 Completed [facility] Influenza High Dose 2016-07-12 00:00:00 Completed [facility] Pneumococcal Polysaccharide, PPSV23 (PNEUMOVAX) 2016-07-12 00:00:00 Completed [facility] Pneumococcal 13 Conjugate, PCV13 (Prevnar 13) 2016-07-12 00:00:00 Completed [facility] Influenza High Dose 2016-07-12 00:00:00 Completed [facility] Pneumococcal Polysaccharide, PPSV23 (PNEUMOVAX) 2016-07-12 00:00:00 Completed [facility] [facility] Pneumococcal 13 Conjugate, PCV13 (Prevnar 13) 2016-07-12 00:00:00 Completed [facility] Influenza High Dose 2016-07-12 00:00:00 Completed [facility] Pneumococcal Polysaccharide, PPSV23 (PNEUMOVAX) 2016-07-12 00:00:00 Completed [facility] Pneumococcal 13 Conjugate, PCV13 (Prevnar 13) 2016-07-12 00:00:00 Completed [facility] Influenza High Dose 2016-07-12 00:00:00 Completed [facility] Pneumococcal Polysaccharide, PPSV23 (PNEUMOVAX) 2016-07-12 00:00:00 Completed [facility] Pneumococcal 13 Conjugate, PCV13 (Prevnar 13) 2016-07-12 00:00:00 Completed [facility] Influenza High Dose 2016-07-12 00:00:00 Completed [facility] Pneumococcal Polysaccharide, PPSV23 (PNEUMOVAX) 2016-07-12 00:00:00 Completed [facility] Pneumococcal 13 Conjugate, PCV13 (Prevnar 13) 2016-07-12 00:00:00 Completed [facility] Influenza High Dose 2016-07-12 00:00:00 Completed [facility] Pneumococcal Polysaccharide, PPSV23 (PNEUMOVAX) 2016-07-12 00:00:00 Completed [facility] Pneumococcal 13 Conjugate, PCV13 (Prevnar 13) 2016-07-12 00:00:00 Completed [facility] Influenza High Dose 2016-07-12 00:00:00 Completed [facility] Pneumococcal Polysaccharide, PPSV23 (PNEUMOVAX) 2016-07-12 00:00:00 Completed [facility] Pneumococcal 13 Conjugate, PCV13 (Prevnar 13) 2016-07-12 00:00:00 Completed [facility] Influenza High Dose 2016-07-12 00:00:00 Completed [facility] Pneumococcal Polysaccharide, PPSV23 (PNEUMOVAX) 2016-07-12 00:00:00 Completed [facility] Pneumococcal 13 Conjugate, PCV13 (Prevnar 13) 2016-07-12 00:00:00 Completed [facility] Influenza High Dose 2016-07-12 00:00:00 Completed [facility] Pneumococcal Polysaccharide, PPSV23 (PNEUMOVAX) 2016-07-12 00:00:00 Completed [facility] Pneumococcal 13 Conjugate, PCV13 (Prevnar 13) 2016-07-12 00:00:00 Completed [facility] Influenza High Dose 2016-07-12 00:00:00 Completed [facility] Pneumococcal Polysaccharide, PPSV23 (PNEUMOVAX) 2016-07-12 00:00:00 Completed [facility] Pneumococcal 13 Conjugate, PCV13 (Prevnar 13) 2016-07-12 00:00:00 Completed [facility] Influenza High Dose 2016-07-12 00:00:00 Completed [facility] Pneumococcal Polysaccharide, PPSV23 (PNEUMOVAX) 2016-07-12 00:00:00 Completed [facility] Pneumococcal 13 Conjugate, PCV13 (Prevnar 13) 2016-07-12 00:00:00 Completed [facility] Influenza High Dose 2016-07-12 00:00:00 Completed [facility] Pneumococcal Polysaccharide, PPSV23 (PNEUMOVAX) 2016-07-12 00:00:00 Completed [facility] Pneumococcal 13 Conjugate, PCV13 (Prevnar 13) 2016-07-12 00:00:00 Completed [facility] Influenza High Dose 2016-07-12 00:00:00 Completed [facility] Pneumococcal Polysaccharide, PPSV23 (PNEUMOVAX) 2016-07-12 00:00:00 Completed [facility] Pneumococcal 13 Conjugate, PCV13 (Prevnar 13) 2016-07-12 00:00:00 Completed [facility] Influenza High Dose 2016-07-12 00:00:00 Completed [facility] Pneumococcal Polysaccharide, PPSV23 (PNEUMOVAX) 2016-07-12 00:00:00 Completed [facility] Pneumococcal 13 Conjugate, PCV13 (Prevnar 13) 2016-07-12 00:00:00 Completed [facility] Influenza High Dose 2016-07-12 00:00:00 Completed [facility] Pneumococcal Polysaccharide, PPSV23 (PNEUMOVAX) 2016-07-12 00:00:00 Completed [facility] Pneumococcal 13 Conjugate, PCV13 (Prevnar 13) 2016-07-12 00:00:00 Completed [facility] Influenza High Dose 2016-07-12 00:00:00 Completed [facility] Pneumococcal Polysaccharide, PPSV23 (PNEUMOVAX) 2016-07-12 00:00:00 Completed [facility] Pneumococcal 13 Conjugate, PCV13 (Prevnar 13) 2016-07-12 00:00:00 Completed [facility] Influenza High Dose 2016-07-12 00:00:00 Completed [facility] Pneumococcal Polysaccharide, PPSV23 (PNEUMOVAX) 2016-07-12 00:00:00 Completed [facility] Pneumococcal 13 Conjugate, PCV13 (Prevnar 13) 2016-07-12 00:00:00 Completed [facility] Influenza High Dose 2016-07-12 00:00:00 Completed [facility] Pneumococcal Polysaccharide, PPSV23 (PNEUMOVAX) 2016-07-12 00:00:00 Completed [facility] Pneumococcal 13 Conjugate, PCV13 (Prevnar 13) 2016-07-12 00:00:00 Completed [facility] Influenza High Dose 2016-07-12 00:00:00 Completed [facility] Pneumococcal Polysaccharide, PPSV23 (PNEUMOVAX) 2016-07-12 00:00:00 Completed [facility] Pneumococcal 13 Conjugate, PCV13 (Prevnar 13) 2016-07-12 00:00:00 Completed [facility] Influenza High Dose 2016-07-12 00:00:00 Completed [facility] Pneumococcal Polysaccharide, PPSV23 (PNEUMOVAX) 2016-07-12 00:00:00 Completed [facility] Pneumococcal 13 Conjugate, PCV13 (Prevnar 13) 2016-07-12 00:00:00 Completed [facility] Influenza High Dose 2016-07-12 00:00:00 Completed [facility] Pneumococcal Polysaccharide, PPSV23 (PNEUMOVAX) 2016-07-12 00:00:00 Completed [facility] Pneumococcal 13 Conjugate, PCV13 (Prevnar 13) 2016-07-12 00:00:00 Completed [facility] Influenza High Dose 2016-07-12 00:00:00 Completed [facility] Pneumococcal Polysaccharide, PPSV23 (PNEUMOVAX) 2016-07-12 00:00:00 Completed [facility] Pneumococcal 13 Conjugate, PCV13 (Prevnar 13) 2016-07-12 00:00:00 Completed [facility] Influenza High Dose 2016-07-12 00:00:00 Completed [facility] Pneumococcal Polysaccharide, PPSV23 (PNEUMOVAX) 2016-07-12 00:00:00 Completed [facility] Pneumococcal 13 Conjugate, PCV13 (Prevnar 13) 2016-07-12 00:00:00 Completed [facility] Influenza High Dose 2016-07-12 00:00:00 Completed [facility] Pneumococcal Polysaccharide, PPSV23 (PNEUMOVAX) 2016-07-12 00:00:00 Completed [facility] Pneumococcal 13 Conjugate, PCV13 (Prevnar 13) 2016-07-12 00:00:00 Completed [facility] Influenza High Dose 2016-07-12 00:00:00 Completed [facility] Pneumococcal Polysaccharide, PPSV23 (PNEUMOVAX) 2016-07-12 00:00:00 Completed [facility] Pneumococcal 13 Conjugate, PCV13 (Prevnar 13) 2016-07-12 00:00:00 Completed [facility] Influenza High Dose 2016-07-12 00:00:00 Completed [facility] Pneumococcal Polysaccharide, PPSV23 (PNEUMOVAX) 2016-07-12 00:00:00 Completed [facility] Pneumococcal 13 Conjugate, PCV13 (Prevnar 13) 2016-07-12 00:00:00 Completed [facility] Influenza High Dose 2016-07-12 00:00:00 Completed [facility] Pneumococcal Polysaccharide, PPSV23 (PNEUMOVAX) 2016-07-12 00:00:00 Completed [facility] Pneumococcal 13 Conjugate, PCV13 (Prevnar 13) 2016-07-12 00:00:00 Completed [facility] Influenza High Dose 2016-07-12 00:00:00 Completed [facility] Pneumococcal Polysaccharide, PPSV23 (PNEUMOVAX) 2016-07-12 00:00:00 Completed [facility] Pneumococcal 13 Conjugate, PCV13 (Prevnar 13) 2016-07-12 00:00:00 Completed [facility] Influenza High Dose 2016-07-12 00:00:00 Completed [facility] Pneumococcal Polysaccharide, PPSV23 (PNEUMOVAX) 2016-07-12 00:00:00 Completed [facility] Pneumococcal 13 Conjugate, PCV13 (Prevnar 13) 2016-07-12 00:00:00 Completed [facility] Influenza High Dose 2016-07-12 00:00:00 Completed [facility] Pneumococcal Polysaccharide, PPSV23 (PNEUMOVAX) 2016-07-12 00:00:00 Completed [facility] Pneumococcal 13 Conjugate, PCV13 (Prevnar 13) 2016-07-12 00:00:00 Completed [facility] Influenza High Dose 2016-07-12 00:00:00 Completed [facility] Pneumococcal Polysaccharide, PPSV23 (PNEUMOVAX) 2016-07-12 00:00:00 Completed [facility] Pneumococcal 13 Conjugate, PCV13 (Prevnar 13) 2016-07-12 00:00:00 Completed [facility] Influenza High Dose 2016-07-12 00:00:00 Completed [facility] Pneumococcal Polysaccharide, PPSV23 (PNEUMOVAX) 2016-07-12 00:00:00 Completed [facility] Pneumococcal 13 Conjugate, PCV13 (Prevnar 13) 2016-07-12 00:00:00 Completed [facility] Influenza High Dose 2016-07-12 00:00:00 Completed [facility] Pneumococcal Polysaccharide, PPSV23 (PNEUMOVAX) 2016-07-12 00:00:00 Completed [facility] Pneumococcal 13 Conjugate, PCV13 (Prevnar 13) 2016-07-12 00:00:00 Completed [facility] Influenza High Dose 2016-07-12 00:00:00 Completed [facility] Pneumococcal Polysaccharide, PPSV23 (PNEUMOVAX) 2016-07-12 00:00:00 Completed [facility] Pneumococcal 13 Conjugate, PCV13 (Prevnar 13) 2016-07-12 00:00:00 Completed [facility] Influenza High Dose 2016-07-12 00:00:00 Completed [facility] Pneumococcal Polysaccharide, PPSV23 (PNEUMOVAX) 2016-07-12 00:00:00 Completed [facility] Pneumococcal 13 Conjugate, PCV13 (Prevnar 13) 2016-07-12 00:00:00 Completed [facility] Influenza High Dose 2016-07-12 00:00:00 Completed [facility] Pneumococcal Polysaccharide, PPSV23 (PNEUMOVAX) 2016-07-12 00:00:00 Completed [facility] Pneumococcal 13 Conjugate, PCV13 (Prevnar 13) 2016-07-12 00:00:00 Completed [facility] Influenza High Dose 2016-07-12 00:00:00 Completed [facility] Pneumococcal Polysaccharide, PPSV23 (PNEUMOVAX) 2016-07-12 00:00:00 Completed [facility] Pneumococcal 13 Conjugate, PCV13 (Prevnar 13) 2016-07-12 00:00:00 Completed [facility] Influenza High Dose 2016-07-12 00:00:00 Completed [facility] Pneumococcal Polysaccharide, PPSV23 (PNEUMOVAX) 2016-07-12 00:00:00 Completed [facility] Pneumococcal 13 Conjugate, PCV13 (Prevnar 13) 2016-07-12 00:00:00 Completed [facility] Influenza High Dose 2016-07-12 00:00:00 Completed [facility] Pneumococcal Polysaccharide, PPSV23 (PNEUMOVAX) 2016-07-12 00:00:00 Completed [facility] Pneumococcal 13 Conjugate, PCV13 (Prevnar 13) 2016-07-12 00:00:00 Completed [facility] Influenza High Dose 2016-07-12 00:00:00 Completed [facility] Pneumococcal Polysaccharide, PPSV23 (PNEUMOVAX) 2016-07-12 00:00:00 Completed [facility] Pneumococcal 13 Conjugate, PCV13 (Prevnar 13) 2016-07-12 00:00:00 Completed [facility] Influenza High Dose 2016-07-12 00:00:00 Completed [facility] Pneumococcal Polysaccharide, PPSV23 (PNEUMOVAX) 2016-07-12 00:00:00 Completed [facility] Pneumococcal 13 Conjugate, PCV13 (Prevnar 13) 2016-07-12 00:00:00 Completed [facility] Influenza High Dose 2016-07-12 00:00:00 Completed [facility] Pneumococcal Polysaccharide, PPSV23 (PNEUMOVAX) 2016-07-12 00:00:00 Completed [facility] Pneumococcal 13 Conjugate, PCV13 (Prevnar 13) 2016-07-12 00:00:00 Completed [facility] Influenza High Dose 2016-07-12 00:00:00 Completed [facility] Pneumococcal Polysaccharide, PPSV23 (PNEUMOVAX) 2016-07-12 00:00:00 Completed [facility] Pneumococcal 13 Conjugate, PCV13 (Prevnar 13) 2016-07-12 00:00:00 Completed [facility] Influenza High Dose 2016-07-12 00:00:00 Completed [facility] Pneumococcal Polysaccharide, PPSV23 (PNEUMOVAX) 2016-07-12 00:00:00 Completed [facility] Pneumococcal 13 Conjugate, PCV13 (Prevnar 13) 2016-07-12 00:00:00 Completed [facility] Influenza High Dose 2016-07-12 00:00:00 Completed [facility] Pneumococcal Polysaccharide, PPSV23 (PNEUMOVAX) 2016-07-12 00:00:00 Completed [facility] Pneumococcal 13 Conjugate, PCV13 (Prevnar 13) 2016-07-12 00:00:00 Completed [facility] Influenza High Dose 2016-07-12 00:00:00 Completed [facility] Pneumococcal Polysaccharide, PPSV23 (PNEUMOVAX) 2016-07-12 00:00:00 Completed [facility] Pneumococcal 13 Conjugate, PCV13 (Prevnar 13) 2016-07-12 00:00:00 Completed [facility] Influenza High Dose 2016-07-12 00:00:00 Completed [facility] Pneumococcal Polysaccharide, PPSV23 (PNEUMOVAX) 2016-07-12 00:00:00 Completed [facility] Pneumococcal 13 Conjugate, PCV13 (Prevnar 13) 2016-07-12 00:00:00 Completed [facility] Influenza High Dose 2016-07-12 00:00:00 Completed [facility] Pneumococcal Polysaccharide, PPSV23 (PNEUMOVAX) 2016-07-12 00:00:00 Completed [facility] Pneumococcal 13 Conjugate, PCV13 (Prevnar 13) 2016-07-12 00:00:00 Completed [facility] Influenza High Dose 2016-07-12 00:00:00 Completed [facility] Pneumococcal Polysaccharide, PPSV23 (PNEUMOVAX) 2016-07-12 00:00:00 Completed [facility] Pneumococcal 13 Conjugate, PCV13 (Prevnar 13) 2016-07-12 00:00:00 Completed [facility] Influenza High Dose 2016-07-12 00:00:00 Completed [facility] Pneumococcal Polysaccharide, PPSV23 (PNEUMOVAX) 2016-07-12 00:00:00 Completed [facility] Pneumococcal 13 Conjugate, PCV13 (Prevnar 13) 2016-07-12 00:00:00 Completed [facility] Influenza High Dose 2016-07-12 00:00:00 Completed [facility] Pneumococcal Polysaccharide, PPSV23 (PNEUMOVAX) 2016-07-12 00:00:00 Completed [facility] Pneumococcal 13 Conjugate, PCV13 (Prevnar 13) 2016-07-12 00:00:00 Completed [facility] Influenza High Dose 2016-07-12 00:00:00 Completed [facility] Pneumococcal Polysaccharide, PPSV23 (PNEUMOVAX) 2016-07-12 00:00:00 Completed [facility] Pneumococcal 13 Conjugate, PCV13 (Prevnar 13) 2016-07-12 00:00:00 Completed [facility] Influenza High Dose 2016-07-12 00:00:00 Completed [facility] Pneumococcal Polysaccharide, PPSV23 (PNEUMOVAX) 2016-07-12 00:00:00 Completed [facility] Pneumococcal 13 Conjugate, PCV13 (Prevnar 13) 2016-07-12 00:00:00 Completed [facility] Influenza High Dose 2016-07-12 00:00:00 Completed [facility] Pneumococcal Polysaccharide, PPSV23 (PNEUMOVAX) 2016-07-12 00:00:00 Completed [facility] Pneumococcal 13 Conjugate, PCV13 (Prevnar 13) 2016-07-12 00:00:00 Completed [facility] Influenza High Dose 2016-07-12 00:00:00 Completed [facility] Pneumococcal Polysaccharide, PPSV23 (PNEUMOVAX) 2016-07-12 00:00:00 Completed [facility] Pneumococcal 13 Conjugate, PCV13 (Prevnar 13) 2016-07-12 00:00:00 Completed [facility] Influenza High Dose 2016-07-12 00:00:00 Completed [facility] Pneumococcal Polysaccharide, PPSV23 (PNEUMOVAX) 2016-07-12 00:00:00 Completed [facility] Pneumococcal 13 Conjugate, PCV13 (Prevnar 13) 2016-07-12 00:00:00 Completed [facility] Influenza High Dose 2016-07-12 00:00:00 Completed [facility] Pneumococcal Polysaccharide, PPSV23 (PNEUMOVAX) 2016-07-12 00:00:00 Completed [facility] Pneumococcal 13 Conjugate, PCV13 (Prevnar 13) 2016-07-12 00:00:00 Completed [facility] Influenza High Dose 2016-07-12 00:00:00 Completed [facility] Pneumococcal Polysaccharide, PPSV23 (PNEUMOVAX) 2016-07-12 00:00:00 Completed [facility] Pneumococcal 13 Conjugate, PCV13 (Prevnar 13) 2016-07-12 00:00:00 Completed [facility] Influenza High Dose 2016-07-12 00:00:00 Completed [facility] Pneumococcal Polysaccharide, PPSV23 (PNEUMOVAX) 2016-07-12 00:00:00 Completed [facility] Pneumococcal 13 Conjugate, PCV13 (Prevnar 13) 2016-07-12 00:00:00 Completed [facility] Influenza, High-Dose, Trivalent, PF (FLUZONE) 2016-07-12 00:00:00 Completed [facility] Pneumococcal Polysaccharide, PPSV23 (PNEUMOVAX) 2016-07-12 00:00:00 Completed [facility]neum[facility] Unspecified 2016-07-12 00:00:00 Completed Pneum[facility] 13 Conjugate, PCV13 (Prevnar 13) 2016-07-12 00:00:00 Completed [facility] Influenza, High-Dose, Trivalent, PF (FLUZONE) 2016-07-12 00:00:00 Completed Pneum[facility] Polysaccharide, PPSV23 (PNEUMOVAX) 2016-07-12 00:00:00 Completed [facility] Unspecified 2016-07-12 00:00:00 Completed Pneum[facility] 13 Conjugate, PCV13 (Prevnar 13) 2016-07-12 00:00:00 Completed [facility] Influenza, High-Dose, Trivalent, PF (FLUZONE) 2016-07-12 00:00:00 Completed Pneumococcal Polysaccharide, PPSV23 (PNEUMOVAX) 2016-07-12 00:00:00 Completed [facility] Pneumococcal Unspecified 2016-07-12 00:00:00 Completed Pneumococcal Polysaccharide, PPSV23 (PNEUMOVAX) 2016-07-11 00:00:00 Completed [facility] Pneumococcal Polysaccharide, PPSV23 (PNEUMOVAX) 2016-07-11 00:00:00 Completed [facility] Pneumococcal Polysaccharide, PPSV23 (PNEUMOVAX) 2016-07-11 00:00:00 Completed [facility] Pneumococcal Polysaccharide, PPSV23 (PNEUMOVAX) 2016-07-11 00:00:00 Completed [facility] Pneumococcal Polysaccharide, PPSV23 (PNEUMOVAX) 2016-07-11 00:00:00 Completed [facility] Pneumococcal Polysaccharide, PPSV23 (PNEUMOVAX) 2016-07-11 00:00:00 Completed [facility] Pneumococcal Polysaccharide, PPSV23 (PNEUMOVAX) 2016-07-11 00:00:00 Completed [facility] Pneumococcal Polysaccharide, PPSV23 (PNEUMOVAX) 2016-07-11 00:00:00 Completed [facility] Pneumococcal Polysaccharide, PPSV23 (PNEUMOVAX) 2016-07-11 00:00:00 Completed [facility] Pneumococcal Polysaccharide, PPSV23 (PNEUMOVAX) 2016-07-11 00:00:00 Completed [facility] Pneumococcal Polysaccharide, PPSV23 (PNEUMOVAX) 2016-07-11 00:00:00 Completed [facility] Pneumococcal Polysaccharide, PPSV23 (PNEUMOVAX) 2016-07-11 00:00:00 Completed [facility] Pneumococcal Polysaccharide, PPSV23 (PNEUMOVAX) 2016-07-11 00:00:00 Completed [facility] Pneumococcal Polysaccharide, PPSV23 (PNEUMOVAX) 2016-07-11 00:00:00 Completed [facility] Pneumococcal Polysaccharide, PPSV23 (PNEUMOVAX) 2016-07-11 00:00:00 Completed [facility] Pneumococcal Polysaccharide, PPSV23 (PNEUMOVAX) 2016-07-11 00:00:00 Completed [facility] Pneumococcal Polysaccharide, PPSV23 (PNEUMOVAX) 2016-07-11 00:00:00 Completed [facility] Pneumococcal Polysaccharide, PPSV23 (PNEUMOVAX) 2016-07-11 00:00:00 Completed [facility] Pneumococcal Polysaccharide, PPSV23 (PNEUMOVAX) 2016-07-11 00:00:00 Completed [facility] Pneumococcal Polysaccharide, PPSV23 (PNEUMOVAX) 2016-07-11 00:00:00 Completed [facility] Pneumococcal Polysaccharide, PPSV23 (PNEUMOVAX) 2016-07-11 00:00:00 Completed [facility] Pneumococcal Polysaccharide, PPSV23 (PNEUMOVAX) 2016-07-11 00:00:00 Completed [facility] Pneumococcal Polysaccharide, PPSV23 (PNEUMOVAX) 2016-07-11 00:00:00 Completed [facility] Pneumococcal Polysaccharide, PPSV23 (PNEUMOVAX) 2016-07-11 00:00:00 Completed [facility] Pneumococcal Polysaccharide, PPSV23 (PNEUMOVAX) 2016-07-11 00:00:00 Completed [facility] Pneumococcal Polysaccharide, PPSV23 (PNEUMOVAX) 2016-07-11 00:00:00 Completed [facility] Pneumococcal Polysaccharide, PPSV23 (PNEUMOVAX) 2016-07-11 00:00:00 Completed [facility] Pneumococcal Polysaccharide, PPSV23 (PNEUMOVAX) 2016-07-11 00:00:00 Completed [facility] Pneumococcal Polysaccharide, PPSV23 (PNEUMOVAX) 2016-07-11 00:00:00 Completed [facility] Pneumococcal Polysaccharide, PPSV23 (PNEUMOVAX) 2016-07-11 00:00:00 Completed [facility] Pneumococcal Polysaccharide, PPSV23 (PNEUMOVAX) 2016-07-11 00:00:00 Completed [facility] Pneumococcal Polysaccharide, PPSV23 (PNEUMOVAX) 2016-07-11 00:00:00 Completed [facility] Pneumococcal Polysaccharide, PPSV23 (PNEUMOVAX) 2016-07-11 00:00:00 Completed [facility] Pneumococcal Polysaccharide, PPSV23 (PNEUMOVAX) 2016-07-11 00:00:00 Completed [facility] Pneumococcal Polysaccharide, PPSV23 (PNEUMOVAX) 2016-07-11 00:00:00 Completed [facility] Pneumococcal Polysaccharide, PPSV23 (PNEUMOVAX) 2016-07-11 00:00:00 Completed [facility] Pneumococcal Polysaccharide, PPSV23 (PNEUMOVAX) 2016-07-11 00:00:00 Completed [facility] Pneumococcal Polysaccharide, PPSV23 (PNEUMOVAX) 2016-07-11 00:00:00 Completed [facility] Pneumococcal Polysaccharide, PPSV23 (PNEUMOVAX) 2016-07-11 00:00:00 Completed [facility] Pneumococcal Polysaccharide, PPSV23 (PNEUMOVAX) 2016-07-11 00:00:00 Completed [facility] Pneumococcal Polysaccharide, PPSV23 (PNEUMOVAX) 2016-07-11 00:00:00 Completed [facility] Pneumococcal Polysaccharide, PPSV23 (PNEUMOVAX) 2016-07-11 00:00:00 Completed [facility] Pneumococcal Polysaccharide, PPSV23 (PNEUMOVAX) 2016-07-11 00:00:00 Completed [facility] Pneumococcal Polysaccharide, PPSV23 (PNEUMOVAX) 2016-07-11 00:00:00 Completed [facility] Pneumococcal Polysaccharide, PPSV23 (PNEUMOVAX) 2016-07-11 00:00:00 Completed [facility] Pneumococcal Polysaccharide, PPSV23 (PNEUMOVAX) 2016-07-11 00:00:00 Completed [facility] Pneumococcal Polysaccharide, PPSV23 (PNEUMOVAX) 2016-07-11 00:00:00 Completed [facility] Pneumococcal Polysaccharide, PPSV23 (PNEUMOVAX) 2016-07-11 00:00:00 Completed [facility] Pneumococcal Polysaccharide, PPSV23 (PNEUMOVAX) 2016-07-11 00:00:00 Completed [facility] Pneumococcal Polysaccharide, PPSV23 (PNEUMOVAX) 2016-07-11 00:00:00 Completed [facility] Pneumococcal Polysaccharide, PPSV23 (PNEUMOVAX) 2016-07-11 00:00:00 Completed [facility] Pneumococcal Polysaccharide, PPSV23 (PNEUMOVAX) 2016-07-11 00:00:00 Completed [facility] Pneumococcal Polysaccharide, PPSV23 (PNEUMOVAX) 2016-07-11 00:00:00 Completed [facility] Pneumococcal Polysaccharide, PPSV23 (PNEUMOVAX) 2016-07-11 00:00:00 Completed [facility] Pneumococcal Polysaccharide, PPSV23 (PNEUMOVAX) 2016-07-11 00:00:00 Completed [facility] Pneumococcal Polysaccharide, PPSV23 (PNEUMOVAX) 2016-07-11 00:00:00 Completed [facility] Pneumococcal Polysaccharide, PPSV23 (PNEUMOVAX) 2016-07-11 00:00:00 Completed [facility] Pneumococcal Polysaccharide, PPSV23 (PNEUMOVAX) 2016-07-11 00:00:00 Completed [facility] Pneumococcal Polysaccharide, PPSV23 (PNEUMOVAX) 2016-07-11 00:00:00 Completed [facility] Pneumococcal Polysaccharide, PPSV23 (PNEUMOVAX) 2016-07-11 00:00:00 Completed [facility] Pneumococcal Polysaccharide, PPSV23 (PNEUMOVAX) 2016-07-11 00:00:00 Completed [facility] Pneumococcal Polysaccharide, PPSV23 (PNEUMOVAX) 2016-07-11 00:00:00 Completed [facility] Pneumococcal Polysaccharide, PPSV23 (PNEUMOVAX) 2016-07-11 00:00:00 Completed [facility] Pneumococcal Polysaccharide, PPSV23 (PNEUMOVAX) 2016-07-11 00:00:00 Completed [facility] Pneumococcal Polysaccharide, PPSV23 (PNEUMOVAX) 2016-07-11 00:00:00 Completed [facility] Pneumococcal Polysaccharide, PPSV23 (PNEUMOVAX) 2016-07-11 00:00:00 Completed [facility] Pneumococcal Polysaccharide, PPSV23 (PNEUMOVAX) 2016-07-11 00:00:00 Completed [facility] Pneumococcal Polysaccharide, PPSV23 (PNEUMOVAX) 2016-07-11 00:00:00 Completed [facility] Pneumococcal Polysaccharide, PPSV23 (PNEUMOVAX) 2016-07-11 00:00:00 Completed [facility] Pneumococcal Polysaccharide, PPSV23 (PNEUMOVAX) 2016-07-11 00:00:00 Completed [facility] Pneumococcal Polysaccharide, PPSV23 (PNEUMOVAX) 2016-07-11 00:00:00 Completed [facility] Pneumococcal Polysaccharide, PPSV23 (PNEUMOVAX) 2016-07-11 00:00:00 Completed [facility] Pneumococcal Polysaccharide, PPSV23 (PNEUMOVAX) 2016-07-11 00:00:00 Completed [facility] Pneumococcal Polysaccharide, PPSV23 (PNEUMOVAX) 2016-07-11 00:00:00 Completed [facility] Pneumococcal Polysaccharide, PPSV23 (PNEUMOVAX) 2016-07-11 00:00:00 Completed [facility] Pneumococcal Polysaccharide, PPSV23 (PNEUMOVAX) 2016-07-11 00:00:00 Completed [facility] Pneumococcal Polysaccharide, PPSV23 (PNEUMOVAX) 2016-07-11 00:00:00 Completed [facility] Pneumococcal Polysaccharide, PPSV23 (PNEUMOVAX) 2016-07-11 00:00:00 Completed [facility] Pneumococcal Polysaccharide, PPSV23 (PNEUMOVAX) 2016-07-11 00:00:00 Completed [facility] Pneumococcal Polysaccharide, PPSV23 (PNEUMOVAX) 2016-07-11 00:00:00 Completed [facility] Pneumococcal Polysaccharide, PPSV23 (PNEUMOVAX) 2016-07-11 00:00:00 Completed [facility] Pneumococcal Polysaccharide, PPSV23 (PNEUMOVAX) 2016-07-11 00:00:00 Completed [facility] Pneumococcal Polysaccharide, PPSV23 (PNEUMOVAX) 2016-07-11 00:00:00 Completed [facility] Pneumococcal Polysaccharide, PPSV23 (PNEUMOVAX) 2016-07-11 00:00:00 Completed [facility] Pneumococcal Polysaccharide, PPSV23 (PNEUMOVAX) 2016-07-11 00:00:00 Completed [facility] Pneumococcal Polysaccharide, PPSV23 (PNEUMOVAX) 2016-07-11 00:00:00 Completed [facility] Pneumococcal Polysaccharide, PPSV23 (PNEUMOVAX) 2016-07-11 00:00:00 Completed [facility] Pneumococcal Polysaccharide, PPSV23 (PNEUMOVAX) 2016-07-11 00:00:00 Completed [facility] Pneumococcal Polysaccharide, PPSV23 (PNEUMOVAX) 2016-07-11 00:00:00 Completed [facility] Pneumococcal Polysaccharide, PPSV23 (PNEUMOVAX) 2016-07-11 00:00:00 Completed [facility] Pneumococcal Polysaccharide, PPSV23 (PNEUMOVAX) 2016-07-11 00:00:00 Completed [facility] Pneumococcal Polysaccharide, PPSV23 (PNEUMOVAX) 2016-07-11 00:00:00 Completed [facility] Pneumococcal Polysaccharide, PPSV23 (PNEUMOVAX) 2016-07-11 00:00:00 Completed [facility] Pneumococcal Polysaccharide, PPSV23 (PNEUMOVAX) 2016-07-11 00:00:00 Completed [facility] Pneumococcal Polysaccharide, PPSV23 (PNEUMOVAX) 2016-07-11 00:00:00 Completed [facility] Pneumococcal Polysaccharide, PPSV23 (PNEUMOVAX) 2016-07-11 00:00:00 Completed [facility] Pneumococcal Polysaccharide, PPSV23 (PNEUMOVAX) 2016-07-11 00:00:00 Completed [facility] Pneumococcal Polysaccharide, PPSV23 (PNEUMOVAX) 2016-07-11 00:00:00 Completed [facility] Pneumococcal Polysaccharide, PPSV23 (PNEUMOVAX) 2016-07-11 00:00:00 Completed [facility] Pneumococcal Polysaccharide, PPSV23 (PNEUMOVAX) 2016-07-11 00:00:00 Completed [facility] Pneumococcal Polysaccharide, PPSV23 (PNEUMOVAX) 2016-07-11 00:00:00 Completed [facility] Pneumococcal Polysaccharide, PPSV23 (PNEUMOVAX) 2016-07-11 00:00:00 Completed [facility] Pneumococcal Polysaccharide, PPSV23 (PNEUMOVAX) 2016-07-11 00:00:00 Completed [facility] Pneumococcal Polysaccharide, PPSV23 (PNEUMOVAX) 2016-07-11 00:00:00 Completed [facility] Pneumococcal Polysaccharide, PPSV23 (PNEUMOVAX) 2016-07-11 00:00:00 Completed [facility] Pneumococcal Polysaccharide, PPSV23 (PNEUMOVAX) 2016-07-11 00:00:00 Completed [facility] Pneumococcal Polysaccharide, PPSV23 (PNEUMOVAX) 2016-07-11 00:00:00 Completed [facility] Pneumococcal Polysaccharide, PPSV23 (PNEUMOVAX) 2016-07-11 00:00:00 Completed [facility] Pneumococcal Polysaccharide, PPSV23 (PNEUMOVAX) 2016-07-11 00:00:00 Completed [facility] Pneumococcal Polysaccharide, PPSV23 (PNEUMOVAX) 2016-07-11 00:00:00 Completed [facility] Pneumococcal Polysaccharide, PPSV23 (PNEUMOVAX) 2016-07-11 00:00:00 Completed [facility] Pneumococcal Polysaccharide, PPSV23 (PNEUMOVAX) 2016-07-11 00:00:00 Completed [facility] Pneumococcal Polysaccharide, PPSV23 (PNEUMOVAX) 2016-07-11 00:00:00 Completed [facility] Pneumococcal Polysaccharide, PPSV23 (PNEUMOVAX) 2016-07-11 00:00:00 Completed [facility] Pneumococcal Polysaccharide, PPSV23 (PNEUMOVAX) 2016-07-11 00:00:00 Completed [facility] Pneumococcal Polysaccharide, PPSV23 (PNEUMOVAX) 2016-07-11 00:00:00 Completed [facility] Pneumococcal Polysaccharide, PPSV23 (PNEUMOVAX) 2016-07-11 00:00:00 Completed [facility] Pneumococcal Polysaccharide, PPSV23 (PNEUMOVAX) 2016-07-11 00:00:00 Completed [facility] Pneumococcal Polysaccharide, PPSV23 (PNEUMOVAX) 2016-07-11 00:00:00 Completed [facility] Pneumococcal Polysaccharide, PPSV23 (PNEUMOVAX) 2016-07-11 00:00:00 Completed [facility] Pneumococcal Polysaccharide, PPSV23 (PNEUMOVAX) 2016-07-11 00:00:00 Completed [facility] Pneumococcal Polysaccharide, PPSV23 (PNEUMOVAX) 2016-07-11 00:00:00 Completed [facility] Pneumococcal Polysaccharide, PPSV23 (PNEUMOVAX) 2016-07-11 00:00:00 Completed [facility] Pneumococcal Polysaccharide, PPSV23 (PNEUMOVAX) 2016-07-11 00:00:00 Completed [facility] Pneumococcal Polysaccharide, PPSV23 (PNEUMOVAX) 2016-07-11 00:00:00 Completed [facility] Pneumococcal Polysaccharide, PPSV23 (PNEUMOVAX) 2016-07-11 00:00:00 Completed [facility] Pneumococcal Polysaccharide, PPSV23 (PNEUMOVAX) 2016-07-11 00:00:00 Completed Pneumococcal Polysaccharide, PPSV23 (PNEUMOVAX) 2016-07-11 00:00:00 Completed Pneumococcal Polysaccharide, PPSV23 (PNEUMOVAX) 2016-07-11 00:00:00 Completed Pneumococcal Polysaccharide, PPSV23 (PNEUMOVAX) 2011-06-19 00:00:00 Completed [facility] Pneumococcal Polysaccharide, PPSV23 (PNEUMOVAX) 2011-06-19 00:00:00 Completed [facility] Pneumococcal Polysaccharide, PPSV23 (PNEUMOVAX) 2011-06-19 00:00:00 Completed [facility] Pneumococcal Polysaccharide, PPSV23 (PNEUMOVAX) 2011-06-19 00:00:00 Completed [facility] Pneumococcal Polysaccharide, PPSV23 (PNEUMOVAX) 2011-06-19 00:00:00 Completed [facility] Pneumococcal Polysaccharide, PPSV23 (PNEUMOVAX) 2011-06-19 00:00:00 Completed [facility] Pneumococcal Polysaccharide, PPSV23 (PNEUMOVAX) 2011-06-19 00:00:00 Completed [facility] Pneumococcal Polysaccharide, PPSV23 (PNEUMOVAX) 2011-06-19 00:00:00 Completed [facility] Pneumococcal Polysaccharide, PPSV23 (PNEUMOVAX) 2011-06-19 00:00:00 Completed [facility] Pneumococcal Polysaccharide, PPSV23 (PNEUMOVAX) 2011-06-19 00:00:00 Completed [facility] Pneumococcal Polysaccharide, PPSV23 (PNEUMOVAX) 2011-06-19 00:00:00 Completed [facility] Pneumococcal Polysaccharide, PPSV23 (PNEUMOVAX) 2011-06-19 00:00:00 Completed [facility] Pneumococcal Polysaccharide, PPSV23 (PNEUMOVAX) 2011-06-19 00:00:00 Completed [facility] Pneumococcal Polysaccharide, PPSV23 (PNEUMOVAX) 2011-06-19 00:00:00 Completed [facility] Pneumococcal Polysaccharide, PPSV23 (PNEUMOVAX) 2011-06-19 00:00:00 Completed [facility] Pneumococcal Polysaccharide, PPSV23 (PNEUMOVAX) 2011-06-19 00:00:00 Completed [facility] Pneumococcal Polysaccharide, PPSV23 (PNEUMOVAX) 2011-06-19 00:00:00 Completed [facility] Pneumococcal Polysaccharide, PPSV23 (PNEUMOVAX) 2011-06-19 00:00:00 Completed [facility] Pneumococcal Polysaccharide, PPSV23 (PNEUMOVAX) 2011-06-19 00:00:00 Completed [facility] Pneumococcal Polysaccharide, PPSV23 (PNEUMOVAX) 2011-06-19 00:00:00 Completed [facility] Pneumococcal Polysaccharide, PPSV23 (PNEUMOVAX) 2011-06-19 00:00:00 Completed [facility] Pneumococcal Polysaccharide, PPSV23 (PNEUMOVAX) 2011-06-19 00:00:00 Completed [facility] Pneumococcal Polysaccharide, PPSV23 (PNEUMOVAX) 2011-06-19 00:00:00 Completed [facility] Pneumococcal Polysaccharide, PPSV23 (PNEUMOVAX) 2011-06-19 00:00:00 Completed [facility] Pneumococcal Polysaccharide, PPSV23 (PNEUMOVAX) 2011-06-19 00:00:00 Completed [facility] Pneumococcal Polysaccharide, PPSV23 (PNEUMOVAX) 2011-06-19 00:00:00 Completed [facility] Pneumococcal Polysaccharide, PPSV23 (PNEUMOVAX) 2011-06-19 00:00:00 Completed [facility] Pneumococcal Polysaccharide, PPSV23 (PNEUMOVAX) 2011-06-19 00:00:00 Completed [facility] Pneumococcal Polysaccharide, PPSV23 (PNEUMOVAX) 2011-06-19 00:00:00 Completed [facility] Pneumococcal Polysaccharide, PPSV23 (PNEUMOVAX) 2011-06-19 00:00:00 Completed [facility] Pneumococcal Polysaccharide, PPSV23 (PNEUMOVAX) 2011-06-19 00:00:00 Completed [facility] Pneumococcal Polysaccharide, PPSV23 (PNEUMOVAX) 2011-06-19 00:00:00 Completed [facility] Pneumococcal Polysaccharide, PPSV23 (PNEUMOVAX) 2011-06-19 00:00:00 Completed [facility] Pneumococcal Polysaccharide, PPSV23 (PNEUMOVAX) 2011-06-19 00:00:00 Completed [facility] Pneumococcal Polysaccharide, PPSV23 (PNEUMOVAX) 2011-06-19 00:00:00 Completed [facility] Pneumococcal Polysaccharide, PPSV23 (PNEUMOVAX) 2011-06-19 00:00:00 Completed [facility] Pneumococcal Polysaccharide, PPSV23 (PNEUMOVAX) 2011-06-19 00:00:00 Completed [facility] Pneumococcal Polysaccharide, PPSV23 (PNEUMOVAX) 2011-06-19 00:00:00 Completed [facility] Pneumococcal Polysaccharide, PPSV23 (PNEUMOVAX) 2011-06-19 00:00:00 Completed [facility] Pneumococcal Polysaccharide, PPSV23 (PNEUMOVAX) 2011-06-19 00:00:00 Completed [facility] Pneumococcal Polysaccharide, PPSV23 (PNEUMOVAX) 2011-06-19 00:00:00 Completed [facility] Pneumococcal Polysaccharide, PPSV23 (PNEUMOVAX) 2011-06-19 00:00:00 Completed [facility] Pneumococcal Polysaccharide, PPSV23 (PNEUMOVAX) 2011-06-19 00:00:00 Completed [facility] Pneumococcal Polysaccharide, PPSV23 (PNEUMOVAX) 2011-06-19 00:00:00 Completed [facility] Pneumococcal Polysaccharide, PPSV23 (PNEUMOVAX) 2011-06-19 00:00:00 Completed [facility] Pneumococcal Polysaccharide, PPSV23 (PNEUMOVAX) 2011-06-19 00:00:00 Completed [facility] Pneumococcal Polysaccharide, PPSV23 (PNEUMOVAX) 2011-06-19 00:00:00 Completed [facility] Pneumococcal Polysaccharide, PPSV23 (PNEUMOVAX) 2011-06-19 00:00:00 Completed [facility] Pneumococcal Polysaccharide, PPSV23 (PNEUMOVAX) 2011-06-19 00:00:00 Completed [facility] Pneumococcal Polysaccharide, PPSV23 (PNEUMOVAX) 2011-06-19 00:00:00 Completed [facility] Pneumococcal Polysaccharide, PPSV23 (PNEUMOVAX) 2011-06-19 00:00:00 Completed [facility] Pneumococcal Polysaccharide, PPSV23 (PNEUMOVAX) 2011-06-19 00:00:00 Completed [facility] Pneumococcal Polysaccharide, PPSV23 (PNEUMOVAX) 2011-06-19 00:00:00 Completed [facility] Pneumococcal Polysaccharide, PPSV23 (PNEUMOVAX) 2011-06-19 00:00:00 Completed [facility] Pneumococcal Polysaccharide, PPSV23 (PNEUMOVAX) 2011-06-19 00:00:00 Completed [facility] Pneumococcal Polysaccharide, PPSV23 (PNEUMOVAX) 2011-06-19 00:00:00 Completed [facility] Pneumococcal Polysaccharide, PPSV23 (PNEUMOVAX) 2011-06-19 00:00:00 Completed [facility] Pneumococcal Polysaccharide, PPSV23 (PNEUMOVAX) 2011-06-19 00:00:00 Completed [facility] Pneumococcal Polysaccharide, PPSV23 (PNEUMOVAX) 2011-06-19 00:00:00 Completed [facility] Pneumococcal Polysaccharide, PPSV23 (PNEUMOVAX) 2011-06-19 00:00:00 Completed [facility] Pneumococcal Polysaccharide, PPSV23 (PNEUMOVAX) 2011-06-19 00:00:00 Completed [facility] Pneumococcal Polysaccharide, PPSV23 (PNEUMOVAX) 2011-06-19 00:00:00 Completed [facility] Pneumococcal Polysaccharide, PPSV23 (PNEUMOVAX) 2011-06-19 00:00:00 Completed [facility] Pneumococcal Polysaccharide, PPSV23 (PNEUMOVAX) 2011-06-19 00:00:00 Completed [facility] Pneumococcal Polysaccharide, PPSV23 (PNEUMOVAX) 2011-06-19 00:00:00 Completed [facility] Pneumococcal Polysaccharide, PPSV23 (PNEUMOVAX) 2011-06-19 00:00:00 Completed [facility] Pneumococcal Polysaccharide, PPSV23 (PNEUMOVAX) 2011-06-19 00:00:00 Completed [facility] Pneumococcal Polysaccharide, PPSV23 (PNEUMOVAX) 2011-06-19 00:00:00 Completed [facility] Pneumococcal Polysaccharide, PPSV23 (PNEUMOVAX) 2011-06-19 00:00:00 Completed [facility] Pneumococcal Polysaccharide, PPSV23 (PNEUMOVAX) 2011-06-19 00:00:00 Completed [facility] Pneumococcal Polysaccharide, PPSV23 (PNEUMOVAX) 2011-06-19 00:00:00 Completed [facility] Pneumococcal Polysaccharide, PPSV23 (PNEUMOVAX) 2011-06-19 00:00:00 Completed [facility] Pneumococcal Polysaccharide, PPSV23 (PNEUMOVAX) 2011-06-19 00:00:00 Completed [facility] Pneumococcal Polysaccharide, PPSV23 (PNEUMOVAX) 2011-06-19 00:00:00 Completed [facility] Pneumococcal Polysaccharide, PPSV23 (PNEUMOVAX) 2011-06-19 00:00:00 Completed [facility] Pneumococcal Polysaccharide, PPSV23 (PNEUMOVAX) 2011-06-19 00:00:00 Completed [facility] Pneumococcal Polysaccharide, PPSV23 (PNEUMOVAX) 2011-06-19 00:00:00 Completed [facility] Pneumococcal Polysaccharide, PPSV23 (PNEUMOVAX) 2011-06-19 00:00:00 Completed [facility] Pneumococcal Polysaccharide, PPSV23 (PNEUMOVAX) 2011-06-19 00:00:00 Completed [facility] Pneumococcal Polysaccharide, PPSV23 (PNEUMOVAX) 2011-06-19 00:00:00 Completed [facility] Pneumococcal Polysaccharide, PPSV23 (PNEUMOVAX) 2011-06-19 00:00:00 Completed [facility] Pneumococcal Polysaccharide, PPSV23 (PNEUMOVAX) 2011-06-19 00:00:00 Completed [facility] Pneumococcal Polysaccharide, PPSV23 (PNEUMOVAX) 2011-06-19 00:00:00 Completed [facility] Pneumococcal Polysaccharide, PPSV23 (PNEUMOVAX) 2011-06-19 00:00:00 Completed [facility] Pneumococcal Polysaccharide, PPSV23 (PNEUMOVAX) 2011-06-19 00:00:00 Completed [facility] Pneumococcal Polysaccharide, PPSV23 (PNEUMOVAX) 2011-06-19 00:00:00 Completed [facility] Pneumococcal Polysaccharide, PPSV23 (PNEUMOVAX) 2011-06-19 00:00:00 Completed [facility] Pneumococcal Polysaccharide, PPSV23 (PNEUMOVAX) 2011-06-19 00:00:00 Completed [facility] Pneumococcal Polysaccharide, PPSV23 (PNEUMOVAX) 2011-06-19 00:00:00 Completed [facility] Pneumococcal Polysaccharide, PPSV23 (PNEUMOVAX) 2011-06-19 00:00:00 Completed [facility] Pneumococcal Polysaccharide, PPSV23 (PNEUMOVAX) 2011-06-19 00:00:00 Completed [facility] Pneumococcal Polysaccharide, PPSV23 (PNEUMOVAX) 2011-06-19 00:00:00 Completed [facility] Pneumococcal Polysaccharide, PPSV23 (PNEUMOVAX) 2011-06-19 00:00:00 Completed [facility] Pneumococcal Polysaccharide, PPSV23 (PNEUMOVAX) 2011-06-19 00:00:00 Completed [facility] Pneumococcal Polysaccharide, PPSV23 (PNEUMOVAX) 2011-06-19 00:00:00 Completed [facility] Pneumococcal Polysaccharide, PPSV23 (PNEUMOVAX) 2011-06-19 00:00:00 Completed [facility] Pneumococcal Polysaccharide, PPSV23 (PNEUMOVAX) 2011-06-19 00:00:00 Completed [facility] Pneumococcal Polysaccharide, PPSV23 (PNEUMOVAX) 2011-06-19 00:00:00 Completed [facility] Pneumococcal Polysaccharide, PPSV23 (PNEUMOVAX) 2011-06-19 00:00:00 Completed [facility] Pneumococcal Polysaccharide, PPSV23 (PNEUMOVAX) 2011-06-19 00:00:00 Completed [facility] Pneumococcal Polysaccharide, PPSV23 (PNEUMOVAX) 2011-06-19 00:00:00 Completed [facility] Pneumococcal Polysaccharide, PPSV23 (PNEUMOVAX) 2011-06-19 00:00:00 Completed [facility] Pneumococcal Polysaccharide, PPSV23 (PNEUMOVAX) 2011-06-19 00:00:00 Completed [facility] Pneumococcal Polysaccharide, PPSV23 (PNEUMOVAX) 2011-06-19 00:00:00 Completed [facility] Pneumococcal Polysaccharide, PPSV23 (PNEUMOVAX) 2011-06-19 00:00:00 Completed [facility] Pneumococcal Polysaccharide, PPSV23 (PNEUMOVAX) 2011-06-19 00:00:00 Completed [facility] Pneumococcal Polysaccharide, PPSV23 (PNEUMOVAX) 2011-06-19 00:00:00 Completed [facility] Pneumococcal Polysaccharide, PPSV23 (PNEUMOVAX) 2011-06-19 00:00:00 Completed [facility] Pneumococcal Polysaccharide, PPSV23 (PNEUMOVAX) 2011-06-19 00:00:00 Completed [facility] Pneumococcal Polysaccharide, PPSV23 (PNEUMOVAX) 2011-06-19 00:00:00 Completed [facility] Pneumococcal Polysaccharide, PPSV23 (PNEUMOVAX) 2011-06-19 00:00:00 Completed [facility] Pneumococcal Polysaccharide, PPSV23 (PNEUMOVAX) 2011-06-19 00:00:00 Completed [facility] Pneumococcal Polysaccharide, PPSV23 (PNEUMOVAX) 2011-06-19 00:00:00 Completed [facility] Pneumococcal Polysaccharide, PPSV23 (PNEUMOVAX) 2011-06-19 00:00:00 Completed [facility] Pneumococcal Polysaccharide, PPSV23 (PNEUMOVAX) 2011-06-19 00:00:00 Completed [facility] Pneumococcal Polysaccharide, PPSV23 (PNEUMOVAX) 2011-06-19 00:00:00 Completed [facility] Pneumococcal Polysaccharide, PPSV23 (PNEUMOVAX) 2011-06-19 00:00:00 Completed [facility] Pneumococcal Polysaccharide, PPSV23 (PNEUMOVAX) 2011-06-19 00:00:00 Completed [facility] Pneumococcal Polysaccharide, PPSV23 (PNEUMOVAX) 2011-06-19 00:00:00 Completed [facility] Pneumococcal Polysaccharide, PPSV23 (PNEUMOVAX) 2011-06-19 00:00:00 Completed [facility] Pneumococcal Polysaccharide, PPSV23 (PNEUMOVAX) 2011-06-19 00:00:00 Completed [facility] Pneumococcal Polysaccharide, PPSV23 (PNEUMOVAX) 2011-06-19 00:00:00 Completed [facility] Pneumococcal Polysaccharide, PPSV23 (PNEUMOVAX) 2011-06-19 00:00:00 Completed [facility] Pneumococcal Polysaccharide, PPSV23 (PNEUMOVAX) 2011-06-19 00:00:00 Completed [facility] Pneumococcal Polysaccharide, PPSV23 (PNEUMOVAX) 2011-06-19 00:00:00 Completed [facility] Pneumococcal Polysaccharide, PPSV23 (PNEUMOVAX) 2011-06-19 00:00:00 Completed [facility] Pneumococcal Polysaccharide, PPSV23 (PNEUMOVAX) 2011-06-19 00:00:00 Completed [facility] Pneumococcal Polysaccharide, PPSV23 (PNEUMOVAX) 2011-06-19 00:00:00 Completed Pneumococcal Polysaccharide, PPSV23 (PNEUMOVAX) 2011-06-19 00:00:00 Completed Pneumococcal Polysaccharide, PPSV23 (PNEUMOVAX) 2011-05-05 00:00:00 Completed [facility] 2011-05-05 00:00:00 Completed [facility] Pneumococcal Polysaccharide, PPSV23 (PNEUMOVAX) 2011-05-05 00:00:00 Completed [facility] 2011-05-05 00:00:00 Completed [facility] Pneumococcal Polysaccharide, PPSV23 (PNEUMOVAX) 2011-05-05 00:00:00 Completed [facility] 2011-05-05 00:00:00 Completed [facility] Pneumococcal Polysaccharide, PPSV23 (PNEUMOVAX) 2011-05-05 00:00:00 Completed [facility] 2011-05-05 00:00:00 Completed [facility] Pneumococcal Polysaccharide, PPSV23 (PNEUMOVAX) 2011-05-05 00:00:00 Completed [facility] 2011-05-05 00:00:00 Completed [facility] Pneumococcal Polysaccharide, PPSV23 (PNEUMOVAX) 2011-05-05 00:00:00 Completed [facility] 2011-05-05 00:00:00 Completed [facility] Pneumococcal Polysaccharide, PPSV23 (PNEUMOVAX) 2011-05-05 00:00:00 Completed [facility] 2011-05-05 00:00:00 Completed [facility] Pneumococcal Polysaccharide, PPSV23 (PNEUMOVAX) 2011-05-05 00:00:00 Completed [facility] 2011-05-05 00:00:00 Completed [facility] Pneumococcal Polysaccharide, PPSV23 (PNEUMOVAX) 2011-05-05 00:00:00 Completed [facility] 2011-05-05 00:00:00 Completed [facility] Pneumococcal Polysaccharide, PPSV23 (PNEUMOVAX) 2011-05-05 00:00:00 Completed [facility] 2011-05-05 00:00:00 Completed [facility] Pneumococcal Polysaccharide, PPSV23 (PNEUMOVAX) 2011-05-05 00:00:00 Completed [facility] 2011-05-05 00:00:00 Completed [facility] Pneumococcal Polysaccharide, PPSV23 (PNEUMOVAX) 2011-05-05 00:00:00 Completed [facility] 2011-05-05 00:00:00 Completed [facility] Pneumococcal Polysaccharide, PPSV23 (PNEUMOVAX) 2011-05-05 00:00:00 Completed [facility] 2011-05-05 00:00:00 Completed [facility] Pneumococcal Polysaccharide, PPSV23 (PNEUMOVAX) 2011-05-05 00:00:00 Completed [facility] 2011-05-05 00:00:00 Completed [facility] Pneumococcal Polysaccharide, PPSV23 (PNEUMOVAX) 2011-05-05 00:00:00 Completed [facility] 2011-05-05 00:00:00 Completed [facility] Pneumococcal Polysaccharide, PPSV23 (PNEUMOVAX) 2011-05-05 00:00:00 Completed [facility] 2011-05-05 00:00:00 Completed [facility] Pneumococcal Polysaccharide, PPSV23 (PNEUMOVAX) 2011-05-05 00:00:00 Completed [facility] 2011-05-05 00:00:00 Completed [facility] Pneumococcal Polysaccharide, PPSV23 (PNEUMOVAX) 2011-05-05 00:00:00 Completed [facility] 2011-05-05 00:00:00 Completed [facility] Pneumococcal Polysaccharide, PPSV23 (PNEUMOVAX) 2011-05-05 00:00:00 Completed [facility] 2011-05-05 00:00:00 Completed [facility] Pneumococcal Polysaccharide, PPSV23 (PNEUMOVAX) 2011-05-05 00:00:00 Completed [facility] 2011-05-05 00:00:00 Completed [facility] Pneumococcal Polysaccharide, PPSV23 (PNEUMOVAX) 2011-05-05 00:00:00 Completed [facility] 2011-05-05 00:00:00 Completed [facility] Pneumococcal Polysaccharide, PPSV23 (PNEUMOVAX) 2011-05-05 00:00:00 Completed [facility] 2011-05-05 00:00:00 Completed [facility] Pneumococcal Polysaccharide, PPSV23 (PNEUMOVAX) 2011-05-05 00:00:00 Completed [facility] 2011-05-05 00:00:00 Completed [facility] Pneumococcal Polysaccharide, PPSV23 (PNEUMOVAX) 2011-05-05 00:00:00 Completed [facility] 2011-05-05 00:00:00 Completed [facility] Pneumococcal Polysaccharide, PPSV23 (PNEUMOVAX) 2011-05-05 00:00:00 Completed [facility] 2011-05-05 00:00:00 Completed [facility] Pneumococcal Polysaccharide, PPSV23 (PNEUMOVAX) 2011-05-05 00:00:00 Completed [facility] [facility] 2011-05-05 00:00:00 Completed [facility] Pneumococcal Polysaccharide, PPSV23 (PNEUMOVAX) 2011-05-05 00:00:00 Completed [facility] TDAP 2011-05-05 00:00:00 Completed [facility] Pneumococcal Polysaccharide, PPSV23 (PNEUMOVAX) 2011-05-05 00:00:00 Completed [facility] TDAP 2011-05-05 00:00:00 Completed [facility] Pneumococcal Polysaccharide, PPSV23 (PNEUMOVAX) 2011-05-05 00:00:00 Completed [facility] TDAP 2011-05-05 00:00:00 Completed [facility] Pneumococcal Polysaccharide, PPSV23 (PNEUMOVAX) 2011-05-05 00:00:00 Completed [facility] TDAP 2011-05-05 00:00:00 Completed [facility] Pneumococcal Polysaccharide, PPSV23 (PNEUMOVAX) 2011-05-05 00:00:00 Completed [facility] TDAP 2011-05-05 00:00:00 Completed [facility] Pneumococcal Polysaccharide, PPSV23 (PNEUMOVAX) 2011-05-05 00:00:00 Completed [facility] TDAP 2011-05-05 00:00:00 Completed [facility] Pneumococcal Polysaccharide, PPSV23 (PNEUMOVAX) 2011-05-05 00:00:00 Completed [facility] TDAP 2011-05-05 00:00:00 Completed [facility] Pneumococcal Polysaccharide, PPSV23 (PNEUMOVAX) 2011-05-05 00:00:00 Completed [facility] TDAP 2011-05-05 00:00:00 Completed [facility] Pneumococcal Polysaccharide, PPSV23 (PNEUMOVAX) 2011-05-05 00:00:00 Completed [facility] TDAP 2011-05-05 00:00:00 Completed [facility] Pneumococcal Polysaccharide, PPSV23 (PNEUMOVAX) 2011-05-05 00:00:00 Completed [facility] TDAP 2011-05-05 00:00:00 Completed [facility] Pneumococcal Polysaccharide, PPSV23 (PNEUMOVAX) 2011-05-05 00:00:00 Completed [facility] TDAP 2011-05-05 00:00:00 Completed [facility] Pneumococcal Polysaccharide, PPSV23 (PNEUMOVAX) 2011-05-05 00:00:00 Completed [facility] TDAP 2011-05-05 00:00:00 Completed [facility] Pneumococcal Polysaccharide, PPSV23 (PNEUMOVAX) 2011-05-05 00:00:00 Completed [facility] TDAP 2011-05-05 00:00:00 Completed [facility] Pneumococcal Polysaccharide, PPSV23 (PNEUMOVAX) 2011-05-05 00:00:00 Completed [facility] TDAP 2011-05-05 00:00:00 Completed [facility] Pneumococcal Polysaccharide, PPSV23 (PNEUMOVAX) 2011-05-05 00:00:00 Completed [facility] TDAP 2011-05-05 00:00:00 Completed [facility] Pneumococcal Polysaccharide, PPSV23 (PNEUMOVAX) 2011-05-05 00:00:00 Completed [facility] TDAP 2011-05-05 00:00:00 Completed [facility] Pneumococcal Polysaccharide, PPSV23 (PNEUMOVAX) 2011-05-05 00:00:00 Completed [facility] TDAP 2011-05-05 00:00:00 Completed [facility] Pneumococcal Polysaccharide, PPSV23 (PNEUMOVAX) 2011-05-05 00:00:00 Completed [facility] TDAP 2011-05-05 00:00:00 Completed [facility] Pneumococcal Polysaccharide, PPSV23 (PNEUMOVAX) 2011-05-05 00:00:00 Completed [facility] TDAP 2011-05-05 00:00:00 Completed [facility] Pneumococcal Polysaccharide, PPSV23 (PNEUMOVAX) 2011-05-05 00:00:00 Completed [facility] TDAP 2011-05-05 00:00:00 Completed [facility] Pneumococcal Polysaccharide, PPSV23 (PNEUMOVAX) 2011-05-05 00:00:00 Completed [facility] TDAP 2011-05-05 00:00:00 Completed [facility] Pneumococcal Polysaccharide, PPSV23 (PNEUMOVAX) 2011-05-05 00:00:00 Completed [facility] TDAP 2011-05-05 00:00:00 Completed [facility] Pneumococcal Polysaccharide, PPSV23 (PNEUMOVAX) 2011-05-05 00:00:00 Completed [facility] TDAP 2011-05-05 00:00:00 Completed [facility] Pneumococcal Polysaccharide, PPSV23 (PNEUMOVAX) 2011-05-05 00:00:00 Completed [facility] TDAP 2011-05-05 00:00:00 Completed [facility] Pneumococcal Polysaccharide, PPSV23 (PNEUMOVAX) 2011-05-05 00:00:00 Completed [facility] TDAP 2011-05-05 00:00:00 Completed [facility] Pneumococcal Polysaccharide, PPSV23 (PNEUMOVAX) 2011-05-05 00:00:00 Completed [facility] TDAP 2011-05-05 00:00:00 Completed [facility] Pneumococcal Polysaccharide, PPSV23 (PNEUMOVAX) 2011-05-05 00:00:00 Completed [facility] TDAP 2011-05-05 00:00:00 Completed [facility] Pneumococcal Polysaccharide, PPSV23 (PNEUMOVAX) 2011-05-05 00:00:00 Completed [facility] TDAP 2011-05-05 00:00:00 Completed [facility] Pneumococcal Polysaccharide, PPSV23 (PNEUMOVAX) 2011-05-05 00:00:00 Completed [facility] TDAP 2011-05-05 00:00:00 Completed [facility] Pneumococcal Polysaccharide, PPSV23 (PNEUMOVAX) 2011-05-05 00:00:00 Completed [facility] TDAP 2011-05-05 00:00:00 Completed [facility] Pneumococcal Polysaccharide, PPSV23 (PNEUMOVAX) 2011-05-05 00:00:00 Completed [facility] TDAP 2011-05-05 00:00:00 Completed [facility] Pneumococcal Polysaccharide, PPSV23 (PNEUMOVAX) 2011-05-05 00:00:00 Completed [facility] TDAP 2011-05-05 00:00:00 Completed [facility] Pneumococcal Polysaccharide, PPSV23 (PNEUMOVAX) 2011-05-05 00:00:00 Completed [facility] TDAP 2011-05-05 00:00:00 Completed [facility] Pneumococcal Polysaccharide, PPSV23 (PNEUMOVAX) 2011-05-05 00:00:00 Completed [facility] TDAP 2011-05-05 00:00:00 Completed [facility] Pneumococcal Polysaccharide, PPSV23 (PNEUMOVAX) 2011-05-05 00:00:00 Completed [facility] TDAP 2011-05-05 00:00:00 Completed [facility] Pneumococcal Polysaccharide, PPSV23 (PNEUMOVAX) 2011-05-05 00:00:00 Completed [facility] TDAP 2011-05-05 00:00:00 Completed [facility] Pneumococcal Polysaccharide, PPSV23 (PNEUMOVAX) 2011-05-05 00:00:00 Completed [facility] TDAP 2011-05-05 00:00:00 Completed [facility] Pneumococcal Polysaccharide, PPSV23 (PNEUMOVAX) 2011-05-05 00:00:00 Completed [facility] TDAP 2011-05-05 00:00:00 Completed [facility] Pneumococcal Polysaccharide, PPSV23 (PNEUMOVAX) 2011-05-05 00:00:00 Completed [facility] TDAP 2011-05-05 00:00:00 Completed [facility] Pneumococcal Polysaccharide, PPSV23 (PNEUMOVAX) 2011-05-05 00:00:00 Completed [facility] TDAP 2011-05-05 00:00:00 Completed [facility] Pneumococcal Polysaccharide, PPSV23 (PNEUMOVAX) 2011-05-05 00:00:00 Completed [facility] TDAP 2011-05-05 00:00:00 Completed [facility] Pneumococcal Polysaccharide, PPSV23 (PNEUMOVAX) 2011-05-05 00:00:00 Completed [facility] TDAP 2011-05-05 00:00:00 Completed [facility] Pneumococcal Polysaccharide, PPSV23 (PNEUMOVAX) 2011-05-05 00:00:00 Completed [facility] TDAP 2011-05-05 00:00:00 Completed [facility] Pneumococcal Polysaccharide, PPSV23 (PNEUMOVAX) 2011-05-05 00:00:00 Completed [facility] TDAP 2011-05-05 00:00:00 Completed [facility] Pneumococcal Polysaccharide, PPSV23 (PNEUMOVAX) 2011-05-05 00:00:00 Completed [facility] TDAP 2011-05-05 00:00:00 Completed [facility] Pneumococcal Polysaccharide, PPSV23 (PNEUMOVAX) 2011-05-05 00:00:00 Completed [facility] TDAP 2011-05-05 00:00:00 Completed [facility] Pneumococcal Polysaccharide, PPSV23 (PNEUMOVAX) 2011-05-05 00:00:00 Completed [facility] TDAP 2011-05-05 00:00:00 Completed [facility] Pneumococcal Polysaccharide, PPSV23 (PNEUMOVAX) 2011-05-05 00:00:00 Completed [facility] TDAP 2011-05-05 00:00:00 Completed [facility] Pneumococcal Polysaccharide, PPSV23 (PNEUMOVAX) 2011-05-05 00:00:00 Completed [facility] TDAP 2011-05-05 00:00:00 Completed [facility] Pneumococcal Polysaccharide, PPSV23 (PNEUMOVAX) 2011-05-05 00:00:00 Completed [facility] TDAP 2011-05-05 00:00:00 Completed [facility] Pneumococcal Polysaccharide, PPSV23 (PNEUMOVAX) 2011-05-05 00:00:00 Completed [facility] TDAP 2011-05-05 00:00:00 Completed [facility] Pneumococcal Polysaccharide, PPSV23 (PNEUMOVAX) 2011-05-05 00:00:00 Completed [facility] TDAP 2011-05-05 00:00:00 Completed [facility] Pneumococcal Polysaccharide, PPSV23 (PNEUMOVAX) 2011-05-05 00:00:00 Completed [facility] TDAP 2011-05-05 00:00:00 Completed [facility] Pneumococcal Polysaccharide, PPSV23 (PNEUMOVAX) 2011-05-05 00:00:00 Completed [facility] TDAP 2011-05-05 00:00:00 Completed [facility] Pneumococcal Polysaccharide, PPSV23 (PNEUMOVAX) 2011-05-05 00:00:00 Completed [facility] TDAP 2011-05-05 00:00:00 Completed [facility] Pneumococcal Polysaccharide, PPSV23 (PNEUMOVAX) 2011-05-05 00:00:00 Completed [facility] TDAP 2011-05-05 00:00:00 Completed [facility] Pneumococcal Polysaccharide, PPSV23 (PNEUMOVAX) 2011-05-05 00:00:00 Completed [facility] TDAP 2011-05-05 00:00:00 Completed [facility] Pneumococcal Polysaccharide, PPSV23 (PNEUMOVAX) 2011-05-05 00:00:00 Completed [facility] TDAP 2011-05-05 00:00:00 Completed [facility] Pneumococcal Polysaccharide, PPSV23 (PNEUMOVAX) 2011-05-05 00:00:00 Completed [facility] TDAP 2011-05-05 00:00:00 Completed [facility] Pneumococcal Polysaccharide, PPSV23 (PNEUMOVAX) 2011-05-05 00:00:00 Completed [facility] TDAP 2011-05-05 00:00:00 Completed [facility] Pneumococcal Polysaccharide, PPSV23 (PNEUMOVAX) 2011-05-05 00:00:00 Completed [facility] TDAP 2011-05-05 00:00:00 Completed [facility] Pneumococcal Polysaccharide, PPSV23 (PNEUMOVAX) 2011-05-05 00:00:00 Completed [facility] TDAP 2011-05-05 00:00:00 Completed [facility] Pneumococcal Polysaccharide, PPSV23 (PNEUMOVAX) 2011-05-05 00:00:00 Completed [facility] TDAP 2011-05-05 00:00:00 Completed [facility] Pneumococcal Polysaccharide, PPSV23 (PNEUMOVAX) 2011-05-05 00:00:00 Completed [facility] TDAP 2011-05-05 00:00:00 Completed [facility] Pneumococcal Polysaccharide, PPSV23 (PNEUMOVAX) 2011-05-05 00:00:00 Completed [facility] TDAP 2011-05-05 00:00:00 Completed [facility] Pneumococcal Polysaccharide, PPSV23 (PNEUMOVAX) 2011-05-05 00:00:00 Completed [facility] TDAP 2011-05-05 00:00:00 Completed [facility] Pneumococcal Polysaccharide, PPSV23 (PNEUMOVAX) 2011-05-05 00:00:00 Completed [facility] TDAP 2011-05-05 00:00:00 Completed [facility] Pneumococcal Polysaccharide, PPSV23 (PNEUMOVAX) 2011-05-05 00:00:00 Completed [facility] TDAP 2011-05-05 00:00:00 Completed [facility] Pneumococcal Polysaccharide, PPSV23 (PNEUMOVAX) 2011-05-05 00:00:00 Completed [facility] TDAP 2011-05-05 00:00:00 Completed [facility] Pneumococcal Polysaccharide, PPSV23 (PNEUMOVAX) 2011-05-05 00:00:00 Completed [facility] TDAP 2011-05-05 00:00:00 Completed [facility] Pneumococcal Polysaccharide, PPSV23 (PNEUMOVAX) 2011-05-05 00:00:00 Completed [facility] TDAP 2011-05-05 00:00:00 Completed [facility] Pneumococcal Polysaccharide, PPSV23 (PNEUMOVAX) 2011-05-05 00:00:00 Completed [facility] TDAP 2011-05-05 00:00:00 Completed [facility] Pneumococcal Polysaccharide, PPSV23 (PNEUMOVAX) 2011-05-05 00:00:00 Completed [facility] TDAP 2011-05-05 00:00:00 Completed [facility] Pneumococcal Polysaccharide, PPSV23 (PNEUMOVAX) 2011-05-05 00:00:00 Completed [facility] TDAP 2011-05-05 00:00:00 Completed [facility] Pneumococcal Polysaccharide, PPSV23 (PNEUMOVAX) 2011-05-05 00:00:00 Completed [facility] TDAP 2011-05-05 00:00:00 Completed [facility] Pneumococcal Polysaccharide, PPSV23 (PNEUMOVAX) 2011-05-05 00:00:00 Completed [facility] TDAP 2011-05-05 00:00:00 Completed [facility] Pneumococcal Polysaccharide, PPSV23 (PNEUMOVAX) 2011-05-05 00:00:00 Completed [facility] TDAP 2011-05-05 00:00:00 Completed [facility] Pneumococcal Polysaccharide, PPSV23 (PNEUMOVAX) 2011-05-05 00:00:00 Completed [facility] TDAP 2011-05-05 00:00:00 Completed [facility] Pneumococcal Polysaccharide, PPSV23 (PNEUMOVAX) 2011-05-05 00:00:00 Completed [facility] TDAP 2011-05-05 00:00:00 Completed [facility] Pneumococcal Polysaccharide, PPSV23 (PNEUMOVAX) 2011-05-05 00:00:00 Completed [facility] TDAP 2011-05-05 00:00:00 Completed [facility] Pneumococcal Polysaccharide, PPSV23 (PNEUMOVAX) 2011-05-05 00:00:00 Completed [facility] TDAP 2011-05-05 00:00:00 Completed [facility] Pneumococcal Polysaccharide, PPSV23 (PNEUMOVAX) 2011-05-05 00:00:00 Completed [facility] TDAP 2011-05-05 00:00:00 Completed [facility] Pneumococcal Polysaccharide, PPSV23 (PNEUMOVAX) 2011-05-05 00:00:00 Completed [facility] TDAP 2011-05-05 00:00:00 Completed [facility] Pneumococcal Polysaccharide, PPSV23 (PNEUMOVAX) 2011-05-05 00:00:00 Completed [facility] TDAP 2011-05-05 00:00:00 Completed [facility] Pneumococcal Polysaccharide, PPSV23 (PNEUMOVAX) 2011-05-05 00:00:00 Completed [facility] TDAP 2011-05-05 00:00:00 Completed [facility] Pneumococcal Polysaccharide, PPSV23 (PNEUMOVAX) 2011-05-05 00:00:00 Completed [facility] TDAP 2011-05-05 00:00:00 Completed [facility] Pneumococcal Polysaccharide, PPSV23 (PNEUMOVAX) 2011-05-05 00:00:00 Completed [facility] TDAP 2011-05-05 00:00:00 Completed [facility] Pneumococcal Polysaccharide, PPSV23 (PNEUMOVAX) 2011-05-05 00:00:00 Completed [facility] TDAP 2011-05-05 00:00:00 Completed [facility] Pneumococcal Polysaccharide, PPSV23 (PNEUMOVAX) 2011-05-05 00:00:00 Completed [facility] TDAP 2011-05-05 00:00:00 Completed [facility] Pneumococcal Polysaccharide, PPSV23 (PNEUMOVAX) 2011-05-05 00:00:00 Completed [facility] TDAP 2011-05-05 00:00:00 Completed [facility] Pneumococcal Polysaccharide, PPSV23 (PNEUMOVAX) 2011-05-05 00:00:00 Completed [facility] TDAP 2011-05-05 00:00:00 Completed [facility] Pneumococcal Polysaccharide, PPSV23 (PNEUMOVAX) 2011-05-05 00:00:00 Completed [facility] TDAP 2011-05-05 00:00:00 Completed [facility] Pneumococcal Polysaccharide, PPSV23 (PNEUMOVAX) 2011-05-05 00:00:00 Completed [facility] TDAP 2011-05-05 00:00:00 Completed [facility] Pneumococcal Polysaccharide, PPSV23 (PNEUMOVAX) 2011-05-05 00:00:00 Completed [facility] TDAP 2011-05-05 00:00:00 Completed [facility] Pneumococcal Polysaccharide, PPSV23 (PNEUMOVAX) 2011-05-05 00:00:00 Completed [facility] TDAP 2011-05-05 00:00:00 Completed [facility] Pneumococcal Polysaccharide, PPSV23 (PNEUMOVAX) 2011-05-05 00:00:00 Completed [facility] TDAP 2011-05-05 00:00:00 Completed [facility] Pneumococcal Polysaccharide, PPSV23 (PNEUMOVAX) 2011-05-05 00:00:00 Completed [facility] TDAP 2011-05-05 00:00:00 Completed [facility] Pneumococcal Polysaccharide, PPSV23 (PNEUMOVAX) 2011-05-05 00:00:00 Completed [facility] TDAP 2011-05-05 00:00:00 Completed [facility] Pneumococcal Polysaccharide, PPSV23 (PNEUMOVAX) 2011-05-05 00:00:00 Completed [facility] TDAP 2011-05-05 00:00:00 Completed [facility] Pneumococcal Polysaccharide, PPSV23 (PNEUMOVAX) 2011-05-05 00:00:00 Completed [facility] TDAP 2011-05-05 00:00:00 Completed [facility] TDAP 2011-05-05 00:00:00 Completed [facility] Pneumococcal Polysaccharide, PPSV23 (PNEUMOVAX) 2011-05-05 00:00:00 Completed Pneumococcal Polysaccharide, PPSV23 (PNEUMOVAX) 2011-05-05 00:00:00 Completed TDAP 2011-05-05 00:00:00 Completed Pneumococcal Polysaccharide, PPSV23 (PNEUMOVAX) 2011-05-05 00:00:00 Completed [facility]AP 2011-05-05 00:00:00 Completed Pneumococcal 13 Conjugate, PCV13 (Prevnar 13) Unknown Completed [facility] TDAP Unknown Completed [facility] Pneumococcal Polysaccharide, PPSV23 (PNEUMOVAX) Unknown Completed [facility] Influenza High Dose Unknown Completed [facility] Influenza Virus Vaccine Unknown Completed [facility] SARS-COV-2 COVID-19 UNSPECIFIED VACCINE Unknown Completed [facility] Influenza Virus Vaccine Quad IM Multi-dose 6+ MO Unknown Completed [facility] Influenza Virus Vaccine,quad Im,preserve Free 65+ (FLUAD) Unknown Completed [facility] SARS-COV-2 COVID-19 VACCINE - (MODERNA) Unknown Completed [facility] Pneumococcal 13 Conjugate, PCV13 (Prevnar 13) Unknown Completed [facility] TDAP Unknown Completed [facility] Pneumococcal Polysaccharide, PPSV23 (PNEUMOVAX) Unknown Completed [facility] Influenza High Dose Unknown Completed [facility] Influenza Virus Vaccine Unknown Completed [facility] SARS-COV-2 COVID-19 UNSPECIFIED VACCINE Unknown Completed [facility] Influenza Virus Vaccine Quad IM Multi-dose 6+ MO Unknown Completed [facility] Influenza Virus Vaccine,quad Im,preserve Free 65+ (FLUAD) Unknown Completed [facility] SARS-COV-2 COVID-19 VACCINE - (MODERNA) Unknown Completed [facility] Pneumococcal 13 Conjugate, PCV13 (Prevnar 13) Unknown Completed [facility] TDAP Unknown Completed [facility] Pneumococcal Polysaccharide, PPSV23 (PNEUMOVAX) Unknown Completed [facility] Influenza High Dose Unknown Completed [facility] Influenza Virus Vaccine Unknown Completed [facility] SARS-COV-2 COVID-19 UNSPECIFIED VACCINE Unknown Completed [facility] Influenza Virus Vaccine Quad IM Multi-dose 6+ MO Unknown Completed [facility] Influenza Virus Vaccine,quad Im,preserve Free 65+ (FLUAD) Unknown Completed [facility] SARS-COV-2 COVID-19 VACCINE - (MODERNA) Unknown Completed [facility] Pneumococcal 13 Conjugate, PCV13 (Prevnar 13) Unknown Completed [facility] TDAP Unknown Completed [facility] Pneumococcal Polysaccharide, PPSV23 (PNEUMOVAX) Unknown Completed [facility] Influenza High Dose Unknown Completed [facility] Influenza Virus Vaccine Unknown Completed [facility] SARS-COV-2 COVID-19 UNSPECIFIED VACCINE Unknown Completed [facility] Influenza Virus Vaccine Quad IM Multi-dose 6+ MO Unknown Completed [facility] Influenza Virus Vaccine,quad Im,preserve Free 65+ (FLUAD) Unknown Completed [facility] SARS-COV-2 COVID-19 VACCINE - (MODERNA) Unknown Completed [facility] Pneumococcal 13 Conjugate, PCV13 (Prevnar 13) Unknown Completed [facility] TDAP Unknown Completed [facility] Pneumococcal Polysaccharide, PPSV23 (PNEUMOVAX) Unknown Completed [facility] Influenza High Dose Unknown Completed [facility] Influenza Virus Vaccine Unknown Completed [facility] SARS-COV-2 COVID-19 UNSPECIFIED VACCINE Unknown Completed [facility] Influenza Virus Vaccine Quad IM Multi-dose 6+ MO Unknown Completed [facility] Influenza Virus Vaccine,quad Im,preserve Free 65+ (FLUAD) Unknown Completed [facility] SARS-COV-2 COVID-19 VACCINE - (MODERNA) Unknown Completed [facility] Pneumococcal 13 Conjugate, PCV13 (Prevnar 13) Unknown Completed [facility] TDAP Unknown Completed [facility] Pneumococcal Polysaccharide, PPSV23 (PNEUMOVAX) Unknown Completed [facility] Influenza High Dose Unknown Completed [facility] Influenza Virus Vaccine Unknown Completed [facility] SARS-COV-2 COVID-19 UNSPECIFIED VACCINE Unknown Completed [facility] Influenza Virus Vaccine Quad IM Multi-dose 6+ MO Unknown Completed [facility] Influenza Virus Vaccine,quad Im,preserve Free 65+ (FLUAD) Unknown Completed [facility] SARS-COV-2 COVID-19 VACCINE - (MODERNA) Unknown Completed [facility] Pneumococcal 13 Conjugate, PCV13 (Prevnar 13) Unknown Completed [facility] TDAP Unknown Completed [facility] Pneumococcal Polysaccharide, PPSV23 (PNEUMOVAX) Unknown Completed [facility] Influenza High Dose Unknown Completed [facility] Influenza Virus Vaccine Unknown Completed [facility] SARS-COV-2 COVID-19 UNSPECIFIED VACCINE Unknown Completed [facility] Influenza Virus Vaccine Quad IM Multi-dose 6+ MO Unknown Completed [facility] Influenza Virus Vaccine,quad Im,preserve Free 65+ (FLUAD) Unknown Completed [facility] SARS-COV-2 COVID-19 VACCINE - (MODERNA) Unknown Completed [facility] Pneumococcal 13 Conjugate, PCV13 (Prevnar 13) Unknown Completed [facility] TDAP Unknown Completed [facility] Pneumococcal Polysaccharide, PPSV23 (PNEUMOVAX) Unknown Completed [facility] Influenza High Dose Unknown Completed [facility] Influenza Virus Vaccine Unknown Completed [facility] SARS-COV-2 COVID-19 UNSPECIFIED VACCINE Unknown Completed [facility] Influenza Virus Vaccine Quad IM Multi-dose 6+ MO Unknown Completed [facility] Influenza Virus Vaccine,quad Im,preserve Free 65+ (FLUAD) Unknown Completed [facility] SARS-COV-2 COVID-19 VACCINE - (MODERNA) Unknown Completed [facility] Pneumococcal 13 Conjugate, PCV13 (Prevnar 13) Unknown Completed [facility] TDAP Unknown Completed [facility] Pneumococcal Polysaccharide, PPSV23 (PNEUMOVAX) Unknown Completed [facility] Influenza High Dose Unknown Completed [facility] Influenza Virus Vaccine Unknown Completed [facility] SARS-COV-2 COVID-19 UNSPECIFIED VACCINE Unknown [facility] Quad IM Multi-dose 6+ MO Unknown Completed [facility] SARS-COV-2 COVID-19 VACCINE - (MODERNA) Unknown Completed [facility] Pneumococcal 13 Conjugate, PCV13 (Prevnar 13) Unknown Completed [facility] TDAP Unknown Completed [facility] Pneumococcal Polysaccharide, PPSV23 (PNEUMOVAX) Unknown Completed [facility] Influenza High Dose Unknown Completed [facility] Influenza Virus Vaccine Unknown Completed [facility] SARS-COV-2 COVID-19 UNSPECIFIED VACCINE Unknown Completed [facility] Influenza Virus Vaccine Quad IM Multi-dose 6+ MO Unknown Completed [facility] SARS-COV-2 COVID-19 VACCINE - (MODERNA) Unknown Completed [facility] Pneumococcal 13 Conjugate, PCV13 (Prevnar 13) Unknown Completed [facility] TDAP Unknown Completed [facility] Pneumococcal Polysaccharide, PPSV23 (PNEUMOVAX) Unknown Completed [facility] Influenza High Dose Unknown Completed [facility] Influenza Virus Vaccine Unknown Completed [facility] SARS-COV-2 COVID-19 UNSPECIFIED VACCINE Unknown Completed [facility] Influenza Virus Vaccine Quad IM Multi-dose 6+ MO Unknown Completed [facility] SARS-COV-2 COVID-19 VACCINE - (MODERNA) Unknown Completed [facility] Pneumococcal 13 Conjugate, PCV13 (Prevnar 13) Unknown Completed [facility] TDAP Unknown Completed [facility] Pneumococcal Polysaccharide, PPSV23 (PNEUMOVAX) Unknown Completed [facility] Influenza High Dose Unknown Completed [facility] Influenza Virus Vaccine Unknown Completed [facility] SARS-COV-2 COVID-19 UNSPECIFIED VACCINE Unknown Completed [facility] Influenza Virus Vaccine Quad IM Multi-dose 6+ MO Unknown Completed [facility] Influenza Virus Vaccine,quad Im,preserve Free 65+ (FLUAD) Unknown Completed [facility] SARS-COV-2 COVID-19 VACCINE - (MODERNA) Unknown Completed [facility] Pneumococcal 13 Conjugate, PCV13 (Prevnar 13) Unknown Completed [facility] TDAP Unknown Completed [facility] Pneumococcal Polysaccharide, PPSV23 (PNEUMOVAX) Unknown Completed [facility] Influenza High Dose Unknown Completed [facility] Influenza Virus Vaccine Unknown Completed [facility] SARS-COV-2 COVID-19 UNSPECIFIED VACCINE Unknown Completed [facility] Influenza Virus Vaccine Quad IM Multi-dose 6+ MO Unknown Completed [facility] Influenza Virus Vaccine,quad Im,preserve Free 65+ (FLUAD) Unknown Completed [facility] SARS-COV-2 COVID-19 VACCINE - (MODERNA) Unknown Completed [facility] Pneumococcal 13 Conjugate, PCV13 (Prevnar 13) Unknown Completed [facility] TDAP Unknown Completed [facility] Pneumococcal Polysaccharide, PPSV23 (PNEUMOVAX) Unknown Completed [facility] Influenza High Dose Unknown Completed [facility] Influenza Virus Vaccine Unknown Completed [facility] SARS-COV-2 COVID-19 UNSPECIFIED VACCINE Unknown Completed [facility] Influenza Virus Vaccine Quad IM Multi-dose 6+ MO Unknown Completed [facility] Influenza Virus Vaccine,quad Im,preserve Free 65+ (FLUAD) Unknown Completed [facility] SARS-COV-2 COVID-19 VACCINE - (MODERNA) Unknown Completed [facility] Pneumococcal 13 Conjugate, PCV13 (Prevnar 13) Unknown Completed [facility] TDAP Unknown Completed [facility] Pneumococcal Polysaccharide, PPSV23 (PNEUMOVAX) Unknown Completed [facility] Influenza High Dose Unknown Completed [facility] Influenza Virus Vaccine Unknown Completed [facility] SARS-COV-2 COVID-19 UNSPECIFIED VACCINE Unknown Completed [facility] Influenza Virus Vaccine Quad IM Multi-dose 6+ MO Unknown Completed [facility] Influenza Virus Vaccine,quad Im,preserve Free 65+ (FLUAD) Unknown Completed [facility] SARS-COV-2 COVID-19 VACCINE - (MODERNA) Unknown Completed [facility] Pneumococcal 13 Conjugate, PCV13 (Prevnar 13) Unknown Completed [facility] TDAP Unknown Completed [facility] Pneumococcal Polysaccharide, PPSV23 (PNEUMOVAX) Unknown Completed [facility] Influenza High Dose Unknown Completed [facility] Influenza Virus Vaccine Unknown Completed [facility] SARS-COV-2 COVID-19 UNSPECIFIED VACCINE Unknown Completed [facility] Influenza Virus Vaccine Quad IM Multi-dose 6+ MO Unknown Completed [facility] Influenza Virus Vaccine,quad Im,preserve Free 65+ (FLUAD) Unknown Completed [facility] SARS-COV-2 COVID-19 VACCINE - (MODERNA) Unknown Completed [facility] Pneumococcal 13 Conjugate, PCV13 (Prevnar 13) Unknown Completed [facility] TDAP Unknown Completed [facility] Pneumococcal Polysaccharide, PPSV23 (PNEUMOVAX) Unknown Completed [facility] Influenza High Dose Unknown Completed [facility] Influenza Virus Vaccine Unknown Completed [facility] SARS-COV-2 COVID-19 UNSPECIFIED VACCINE Unknown Completed [facility] Influenza Virus Vaccine Quad IM Multi-dose 6+ MO Unknown Completed [facility] Influenza Virus Vaccine,quad Im,preserve Free 65+ (FLUAD) Unknown Completed [facility] SARS-COV-2 COVID-19 VACCINE - (MODERNA) Unknown Completed [facility] Pneumococcal 13 Conjugate, PCV13 (Prevnar 13) Unknown Completed [facility] TDAP Unknown Completed [facility] Pneumococcal Polysaccharide, PPSV23 (PNEUMOVAX) Unknown Completed [facility] Influenza High Dose Unknown Completed [facility] Influenza Virus Vaccine Unknown Completed [facility] SARS-COV-2 COVID-19 UNSPECIFIED VACCINE Unknown Completed [facility] Influenza Virus Vaccine Quad IM Multi-dose 6+ MO Unknown Completed [facility] Influenza Virus Vaccine,quad Im,preserve Free 65+ (FLUAD) Unknown Completed [facility] SARS-COV-2 COVID-19 VACCINE - (MODERNA) Unknown Completed [facility] Pneumococcal 13 Conjugate, PCV13 (Prevnar 13) Unknown Completed [facility] TDAP Unknown Completed [facility] Pneumococcal Polysaccharide, PPSV23 (PNEUMOVAX) Unknown Completed [facility] Influenza High Dose Unknown Completed [facility] Influenza Virus Vaccine Unknown Completed [facility] SARS-COV-2 COVID-19 UNSPECIFIED VACCINE Unknown Completed [facility] Influenza Virus Vaccine Quad IM Multi-dose 6+ MO Unknown Completed [facility] Influenza Virus Vaccine,quad Im,preserve Free 65+ (FLUAD) Unknown Completed [facility] SARS-COV-2 COVID-19 VACCINE - (MODERNA) Unknown Completed [facility] Pneumococcal 13 Conjugate, PCV13 (Prevnar 13) Unknown Completed [facility] TDAP Unknown Completed [facility] Pneumococcal Polysaccharide, PPSV23 (PNEUMOVAX) Unknown Completed [facility] Influenza High Dose Unknown Completed [facility] Influenza Virus Vaccine Unknown Completed [facility] SARS-COV-2 COVID-19 UNSPECIFIED VACCINE Unknown Completed [facility] Influenza Virus Vaccine Quad IM Multi-dose 6+ MO Unknown Completed [facility] Influenza Virus Vaccine,quad Im,preserve Free 65+ (FLUAD) Unknown Completed [facility] SARS-COV-2 COVID-19 VACCINE - (MODERNA) Unknown Completed [facility] Pneumococcal 13 Conjugate, PCV13 (Prevnar 13) Unknown Completed [facility] TDAP Unknown Completed [facility] Influenza Virus Vaccine Quad IM Multi-dose 6+ MO Unknown Completed [facility] Influenza Virus Vaccine,quad Im,preserve Free 65+ (FLUAD) Unknown Completed [facility] Pneumococcal Polysaccharide, PPSV23 (PNEUMOVAX) Unknown Completed [facility] Influenza High Dose Unknown Completed [facility] Influenza Virus Vaccine Unknown Completed [facility] SARS-COV-2 COVID-19 UNSPECIFIED VACCINE Unknown Completed [facility] SARS-COV-2 COVID-19 VACCINE - (MODERNA) Unknown Completed [facility] Pneumococcal Polysaccharide, PPSV23 (PNEUMOVAX) Unknown Completed [facility] Pneumococcal 13 Conjugate, PCV13 (Prevnar 13) Unknown Completed [facility] TDAP Unknown Completed [facility] Influenza High Dose Unknown Completed [facility] Influenza Virus Vaccine Unknown Completed [facility] SARS-COV-2 COVID-19 UNSPECIFIED VACCINE Unknown Completed [facility] Influenza Virus Vaccine Quad IM Multi-dose 6+ MO Unknown Completed [facility] Influenza Virus Vaccine,quad Im,preserve Free 65+ (FLUAD) Unknown Completed [facility] SARS-COV-2 COVID-19 VACCINE - (MODERNA) Unknown Completed [facility] Pneumococcal Polysaccharide, PPSV23 (PNEUMOVAX) Unknown Completed [facility] Pneumococcal 13 Conjugate, PCV13 (Prevnar 13) Unknown Completed [facility] TDAP Unknown Completed [facility] Influenza High Dose Unknown Completed [facility] Influenza Virus Vaccine Unknown Completed [facility] SARS-COV-2 COVID-19 UNSPECIFIED VACCINE Unknown Completed [facility] Influenza Virus Vaccine Quad IM Multi-dose 6+ MO Unknown Completed [facility] Influenza Virus Vaccine,quad Im,preserve Free 65+ (FLUAD) Unknown Completed [facility] SARS-COV-2 COVID-19 VACCINE - (MODERNA) Unknown Completed [facility] Pneumococcal Polysaccharide, PPSV23 (PNEUMOVAX) Unknown Completed [facility] Pneumococcal 13 Conjugate, PCV13 (Prevnar 13) Unknown Completed [facility] TDAP Unknown Completed [facility] Influenza High Dose Unknown Completed [facility] Influenza Virus Vaccine Unknown Completed [facility] SARS-COV-2 COVID-19 UNSPECIFIED VACCINE Unknown Completed [facility] Influenza Virus Vaccine Quad IM Multi-dose 6+ MO Unknown Completed [facility] Influenza Virus Vaccine,quad Im,preserve Free 65+ (FLUAD) Unknown Completed [facility] SARS-COV-2 COVID-19 VACCINE - (MODERNA) Unknown Completed [facility] Pneumococcal Polysaccharide, PPSV23 (PNEUMOVAX) Unknown Completed [facility] Pneumococcal 13 Conjugate, PCV13 (Prevnar 13) Unknown Completed [facility] TDAP Unknown Completed [facility] Influenza High Dose Unknown Completed [facility] Influenza Virus Vaccine Unknown Completed [facility] SARS-COV-2 COVID-19 UNSPECIFIED VACCINE Unknown Completed [facility] Influenza Virus Vaccine Quad IM Multi-dose 6+ MO Unknown Completed [facility] Influenza Virus Vaccine,quad Im,preserve Free 65+ (FLUAD) Unknown Completed [facility] SARS-COV-2 COVID-19 VACCINE - (MODERNA) Unknown Completed [facility] Pneumococcal Polysaccharide, PPSV23 (PNEUMOVAX) Unknown Completed [facility] Pneumococcal 13 Conjugate, PCV13 (Prevnar 13) Unknown Completed [facility] TDAP Unknown Completed [facility] Influenza High Dose Unknown Completed [facility] Influenza Virus Vaccine Unknown Completed [facility] SARS-COV-2 COVID-19 UNSPECIFIED VACCINE Unknown Completed [facility] Influenza Virus Vaccine Quad IM Multi-dose 6+ MO Unknown Completed [facility] Influenza Virus Vaccine,quad Im,preserve Free 65+ (FLUAD) Unknown Completed [facility] SARS-COV-2 COVID-19 VACCINE - (MODERNA) Unknown Completed [facility] Pneumococcal Polysaccharide, PPSV23 (PNEUMOVAX) Unknown Completed [facility] Pneumococcal 13 Conjugate, PCV13 (Prevnar 13) Unknown Completed [facility] TDAP Unknown Completed [facility] Influenza High Dose Unknown Completed [facility] Influenza Virus Vaccine Unknown Completed [facility] SARS-COV-2 COVID-19 UNSPECIFIED VACCINE Unknown Completed [facility] Influenza Virus Vaccine Quad IM Multi-dose 6+ MO Unknown Completed [facility] Influenza Virus Vaccine,quad Im,preserve Free 65+ (FLUAD) Unknown Completed [facility] SARS-COV-2 COVID-19 VACCINE - (MODERNA) [facility] Con[facility], PCV13 (Prevnar 13) Unknown Completed [facility] TDAP Unknown Completed [facility] Influenza Virus Vaccine Quad IM Multi-dose 6+ MO Unknown Completed [facility] Influenza Virus Vaccine,quad Im,preserve Free 65+ (FLUAD) Unknown Completed [facility] Pneumococcal Polysaccharide, PPSV23 (PNEUMOVAX) Unknown Completed [facility] Influenza High Dose Unknown Completed [facility] Influenza Virus Vaccine Unknown Completed [facility] SARS-COV-2 COVID-19 UNSPECIFIED VACCINE Unknown Completed [facility] SARS-COV-2 COVID-19 VACCINE - (MODERNA) Unknown [facility] Pneum[facility] Polys[facility], PPSV23 (PNEUMOVAX) [facility] Pneumococcal 13 Conjugate, PCV13 (Prevnar 13) Unknown Completed [facility] TDAP Unknown Completed [facility] Influenza High Dose Unknown Completed [facility] Influenza Virus Vaccine Unknown Completed [facility] SARS-COV-2 COVID-19 UNSPECIFIED VACCINE Unknown Completed [facility] Influenza Virus Vaccine Quad IM Multi-dose 6+ MO Unknown Completed [facility] Influenza Virus Vaccine,quad Im,preserve Free 65+ (FLUAD) Unknown Completed [facility] SARS-COV-2 COVID-19 VACCINE - (MODERNA) Unknown Completed [facility] Pneumococcal Polysaccharide, PPSV23 (PNEUMOVAX) Unknown Completed [facility] Pneumococcal 13 Conjugate, PCV13 (Prevnar 13) Unknown Completed [facility] TDAP Unknown Completed [facility] Influenza High Dose Unknown Completed [facility] Influenza Virus Vaccine Unknown Completed [facility] SARS-COV-2 COVID-19 UNSPECIFIED VACCINE Unknown Completed [facility] Influenza Virus Vaccine Quad IM Multi-dose 6+ MO Unknown Completed [facility] Influenza Virus Vaccine,quad Im,preserve Free 65+ (FLUAD) Unknown Completed [facility] SARS-COV-2 COVID-19 VACCINE - (MODERNA) Unknown Completed [facility] Pneumococcal Polysaccharide, PPSV23 (PNEUMOVAX) Unknown Completed [facility] Pneumococcal 13 Conjugate, PCV13 (Prevnar 13) Unknown Completed [facility] TDAP Unknown Completed [facility] Influenza High Dose Unknown Completed [facility] Influenza Virus Vaccine Unknown Completed [facility] SARS-COV-2 COVID-19 UNSPECIFIED VACCINE Unknown Completed [facility] Influenza Virus Vaccine Quad IM Multi-dose 6+ MO Unknown Completed [facility] Influenza Virus Vaccine,quad Im,preserve Free 65+ (FLUAD) Unknown Completed [facility] SARS-COV-2 COVID-19 VACCINE - (MODERNA) Unknown Completed [facility] Pneumococcal Polysaccharide, PPSV23 (PNEUMOVAX) Unknown Completed [facility] Pneumococcal 13 Conjugate, PCV13 (Prevnar 13) Unknown Completed [facility] TDAP Unknown Completed [facility] Influenza High Dose Unknown Completed [facility] Influenza Virus Vaccine Unknown Completed [facility] SARS-COV-2 COVID-19 UNSPECIFIED VACCINE Unknown Completed [facility] Influenza Virus Vaccine Quad IM Multi-dose 6+ MO Unknown Completed [facility] Influenza Virus Vaccine,quad Im,preserve Free 65+ (FLUAD) Unknown Completed [facility] SARS-COV-2 COVID-19 VACCINE - (MODERNA) Unknown Completed [facility] Pneumococcal Polysaccharide, PPSV23 (PNEUMOVAX) Unknown Completed [facility] Pneumococcal 13 Conjugate, PCV13 (Prevnar 13) Unknown Completed [facility] TDAP Unknown Completed [facility] Influenza High Dose Unknown Completed [facility] Influenza Virus Vaccine Unknown Completed [facility] SARS-COV-2 COVID-19 UNSPECIFIED VACCINE Unknown Completed [facility] Influenza Virus Vaccine Quad IM Multi-dose 6+ MO Unknown Completed [facility] Influenza Virus Vaccine,quad Im,preserve Free 65+ (FLUAD) Unknown Completed [facility] SARS-COV-2 COVID-19 VACCINE - (MODERNA) Unknown Completed [facility] Pneumococcal Polysaccharide, PPSV23 (PNEUMOVAX) Unknown Completed [facility] Pneumococcal 13 Conjugate, PCV13 (Prevnar 13) Unknown Completed [facility] TDAP Unknown Completed [facility] Influenza High Dose Unknown Completed [facility] Influenza Virus Vaccine Unknown Completed [facility] SARS-COV-2 COVID-19 UNSPECIFIED VACCINE Unknown Completed [facility] Influenza Virus Vaccine Quad IM Multi-dose 6+ MO Unknown Completed [facility] Influenza Virus Vaccine,quad Im,preserve Free 65+ (FLUAD) Unknown Completed [facility] SARS-COV-2 COVID-19 VACCINE - (MODERNA) Unknown Completed [facility] Pneumococcal Polysaccharide, PPSV23 (PNEUMOVAX) Unknown Completed [facility] Pneumococcal 13 Conjugate, PCV13 (Prevnar 13) Unknown Completed [facility] TDAP Unknown Completed [facility] Influenza High Dose Unknown Completed [facility] Influenza Virus Vaccine Unknown Completed [facility] SARS-COV-2 COVID-19 UNSPECIFIED VACCINE Unknown Completed [facility] Influenza Virus Vaccine Quad IM Multi-dose 6+ MO Unknown Completed [facility] Influenza Virus Vaccine,quad Im,preserve Free 65+ (FLUAD) Unknown Completed [facility] SARS-COV-2 COVID-19 VACCINE - (MODERNA) Unknown Completed [facility] Pneumococcal Polysaccharide, PPSV23 (PNEUMOVAX) Unknown Completed [facility] Pneumococcal 13 Conjugate, PCV13 (Prevnar 13) Unknown Completed [facility] TDAP Unknown Completed [facility] Influenza High Dose Unknown Completed [facility] Influenza Virus Vaccine Unknown Completed [facility] SARS-COV-2 COVID-19 UNSPECIFIED VACCINE Unknown Completed [facility] Influenza Virus Vaccine Quad IM Multi-dose 6+ MO Unknown Completed [facility] Influenza Virus Vaccine,quad Im,preserve Free 65+ (FLUAD) Unknown Completed [facility] SARS-COV-2 COVID-19 VACCINE - (MODERNA) Unknown Completed [facility] Pneumococcal 13 Conjugate, PCV13 (Prevnar 13) Unknown Completed [facility] TDAP Unknown Completed [facility] Influenza Virus Vaccine Quad IM Multi-dose 6+ MO Unknown Completed [facility] Influenza Virus Vaccine,quad Im,preserve Free 65+ (FLUAD) Unknown Completed [facility] Pneumococcal Polysaccharide, PPSV23 (PNEUMOVAX) Unknown Completed [facility] Influenza High Dose Unknown Completed [facility] Influenza Virus Vaccine Unknown Completed [facility] SARS-COV-2 COVID-19 UNSPECIFIED VACCINE Unknown Completed [facility] SARS-COV-2 COVID-19 VACCINE - (MODERNA) Unknown Completed [facility] Pneumococcal Polysaccharide, PPSV23 (PNEUMOVAX) Unknown Completed [facility] Pneumococcal 13 Conjugate, PCV13 (Prevnar 13) Unknown Completed [facility] TDAP Unknown Completed [facility] Influenza High Dose Unknown Completed [facility] Influenza Virus Vaccine Unknown Completed [facility] SARS-COV-2 COVID-19 UNSPECIFIED VACCINE Unknown Completed [facility] Influenza Virus Vaccine Quad IM Multi-dose 6+ MO Unknown Completed [facility] Influenza Virus Vaccine,quad Im,preserve Free 65+ (FLUAD) Unknown Completed [facility] SARS-COV-2 COVID-19 VACCINE - (MODERNA) Unknown Completed [facility] Pneumococcal Polysaccharide, PPSV23 (PNEUMOVAX) Unknown Completed [facility] Pneumococcal 13 Conjugate, PCV13 (Prevnar 13) Unknown Completed [facility] TDAP Unknown Completed [facility] Influenza High Dose Unknown Completed [facility] Influenza Virus Vaccine Unknown Completed [facility] SARS-COV-2 COVID-19 UNSPECIFIED VACCINE Unknown Completed [facility] Influenza Virus Vaccine Quad IM Multi-dose 6+ MO Unknown Completed [facility] Influenza Virus Vaccine,quad Im,preserve Free 65+ (FLUAD) Unknown Completed [facility] SARS-COV-2 COVID-19 VACCINE - (MODERNA) Unknown Completed [facility] Pneumococcal Polysaccharide, PPSV23 (PNEUMOVAX) Unknown Completed [facility] Pneumococcal 13 Conjugate, PCV13 (Prevnar 13) Unknown Completed [facility] TDAP Unknown Completed [facility] Influenza High Dose Unknown Completed [facility] Influenza Virus Vaccine Unknown Completed [facility] SARS-COV-2 COVID-19 UNSPECIFIED VACCINE Unknown Completed [facility] Influenza Virus Vaccine Quad IM Multi-dose 6+ MO Unknown Completed [facility] Influenza Virus Vaccine,quad Im,preserve Free 65+ (FLUAD) Unknown Completed [facility] SARS-COV-2 COVID-19 VACCINE - (MODERNA) Unknown Completed [facility] Pneumococcal Polysaccharide, PPSV23 (PNEUMOVAX) Unknown Completed [facility] Pneumococcal 13 Conjugate, PCV13 (Prevnar 13) Unknown Completed [facility] TDAP Unknown Completed [facility] Influenza High Dose Unknown Completed [facility] Influenza Virus Vaccine Unknown Completed [facility] SARS-COV-2 COVID-19 UNSPECIFIED VACCINE Unknown Completed [facility] Influenza Virus Vaccine Quad IM Multi-dose 6+ MO Unknown Completed [facility] Influenza Virus Vaccine,quad Im,preserve Free 65+ (FLUAD) Unknown Completed [facility] SARS-COV-2 COVID-19 VACCINE - (MODERNA) Unknown Completed [facility] Pneumococcal Polysaccharide, PPSV23 (PNEUMOVAX) Unknown Completed [facility] Pneumococcal 13 Conjugate, PCV13 (Prevnar 13) Unknown Completed [facility] TDAP Unknown Completed [facility] Influenza High Dose Unknown Completed [facility] Influenza Virus Vaccine Unknown Completed [facility] SARS-COV-2 COVID-19 UNSPECIFIED VACCINE Unknown Completed [facility] Influenza Virus Vaccine Quad IM Multi-dose 6+ MO Unknown Completed [facility] Influenza Virus Vaccine,quad Im,preserve Free 65+ (FLUAD) Unknown Completed [facility] SARS-COV-2 COVID-19 VACCINE - (MODERNA) [facility] Pol[facility], PPSV23 (PNEUMOVAX) Unknown Completed [facility] Pneumococcal 13 Conjugate, PCV13 (Prevnar 13) Unknown Completed [facility] TDAP Unknown Completed [facility] Influenza High Dose Unknown Completed [facility] Influenza Virus Vaccine Unknown Completed [facility] SARS-COV-2 COVID-19 UNSPECIFIED VACCINE Unknown [facility]ine [facility] Multi-dose 6+ MO Unknown Completed [facility] Influenza Virus Vaccine,quad Im,preserve Free 65+ (FLUAD) Unknown Completed [facility] SARS-COV-2 COVID-19 VACCINE - (MODERNA) Unknown Completed [facility] Pneumococcal 13 Conjugate, PCV13 (Prevnar 13) Unknown Completed [facility] TDAP Unknown Completed [facility] Influenza Virus Vaccine Quad IM Multi-dose 6+ MO Unknown Completed [facility] Influenza Virus Vaccine,quad Im,preserve Free 65+ (FLUAD) Unknown Completed [facility] Pneumococcal Polysaccharide, PPSV23 (PNEUMOVAX) Unknown Completed [facility] Influenza High Dose Unknown Completed [facility] Influenza Virus Vaccine Unknown Completed [facility] SARS-COV-2 COVID-19 UNSPECIFIED VACCINE Unknown Completed [facility] SARS-COV-2 COVID-19 VACCINE - (MODERNA) Unknown Completed [facility] Pneumococcal Polysaccharide, PPSV23 (PNEUMOVAX) Unknown Completed [facility] Pneumococcal 13 Conjugate, PCV13 (Prevnar 13) Unknown Completed [facility] TDAP Unknown Completed [facility] Influenza High Dose Unknown Completed [facility] Influenza Virus Vaccine Unknown Completed [facility] SARS-COV-2 COVID-19 UNSPECIFIED VACCINE Unknown Completed [facility] Influenza Virus Vaccine Quad IM Multi-dose 6+ MO Unknown Completed [facility] Influenza Virus Vaccine,quad Im,preserve Free 65+ (FLUAD) Unknown Completed [facility] SARS-COV-2 COVID-19 VACCINE - (MODERNA) Unknown Completed [facility] Pneumococcal Polysaccharide, PPSV23 (PNEUMOVAX) Unknown Completed [facility] Pneumococcal 13 Conjugate, PCV13 (Prevnar 13) Unknown Completed [facility] TDAP Unknown Completed [facility] Influenza High Dose Unknown Completed [facility] Influenza Virus Vaccine Unknown Completed [facility] SARS-COV-2 COVID-19 UNSPECIFIED VACCINE Unknown Completed [facility] Influenza Virus Vaccine Quad IM Multi-dose 6+ MO Unknown Completed [facility] Influenza Virus Vaccine,quad Im,preserve Free 65+ (FLUAD) Unknown Completed [facility] SARS-COV-2 COVID-19 VACCINE - (MODERNA) Unknown Completed [facility] Pneumococcal Polysaccharide, PPSV23 (PNEUMOVAX) Unknown Completed [facility] Pneumococcal 13 Conjugate, PCV13 (Prevnar 13) Unknown Completed [facility] TDAP Unknown Completed [facility] Influenza High Dose Unknown Completed [facility] Influenza Virus Vaccine Unknown Completed [facility] SARS-COV-2 COVID-19 UNSPECIFIED VACCINE Unknown Completed [facility] Influenza Virus Vaccine Quad IM Multi-dose 6+ MO Unknown Completed [facility] Influenza Virus Vaccine,quad Im,preserve Free 65+ (FLUAD) Unknown Completed [facility] SARS-COV-2 COVID-19 VACCINE - (MODERNA) Unknown Completed [facility] Pneumococcal Polysaccharide, PPSV23 (PNEUMOVAX) Unknown Completed [facility] Pneumococcal 13 Conjugate, PCV13 (Prevnar 13) Unknown Completed [facility] TDAP Unknown Completed [facility] Influenza High Dose Unknown Completed [facility] Influenza Virus Vaccine Unknown Completed [facility] SARS-COV-2 COVID-19 UNSPECIFIED VACCINE Unknown Completed [facility] Influenza Virus Vaccine Quad IM Multi-dose 6+ MO Unknown Completed [facility] Influenza Virus Vaccine,quad Im,preserve Free 65+ (FLUAD) Unknown Completed [facility] SARS-COV-2 COVID-19 VACCINE - (MODERNA) Unknown Completed [facility] Pneumococcal 13 Conjugate, PCV13 (Prevnar 13) Unknown Completed [facility] TDAP Unknown Completed [facility] Influenza Virus Vaccine Quad IM Multi-dose 6+ MO Unknown Completed [facility] Influenza Virus Vaccine,quad Im,preserve Free 65+ (FLUAD) Unknown Completed [facility] Pneumococcal Polysaccharide, PPSV23 (PNEUMOVAX) Unknown Completed [facility] Influenza High Dose Unknown Completed [facility] Influenza Virus Vaccine Unknown Completed [facility] SARS-COV-2 COVID-19 UNSPECIFIED VACCINE Unknown Completed [facility] SARS-COV-2 COVID-19 VACCINE - (MODERNA) Unknown Completed [facility] Pneumococcal Polysaccharide, PPSV23 (PNEUMOVAX) Unknown Completed [facility] Pneumococcal 13 Conjugate, PCV13 (Prevnar 13) Unknown Completed [facility] TDAP Unknown Completed [facility] Influenza High Dose Unknown Completed [facility] Influenza Virus Vaccine Unknown Completed [facility] SARS-COV-2 COVID-19 UNSPECIFIED VACCINE Unknown Completed [facility] Influenza Virus Vaccine Quad IM Multi-dose 6+ MO Unknown Completed [facility] Influenza Virus Vaccine,quad Im,preserve Free 65+ (FLUAD) Unknown Completed [facility] SARS-COV-2 COVID-19 VACCINE - (MODERNA) Unknown Completed [facility] Pneumococcal Polysaccharide, PPSV23 (PNEUMOVAX) Unknown Completed [facility] Pneumococcal 13 Conjugate, PCV13 (Prevnar 13) Unknown Completed [facility] TDAP Unknown Completed [facility] Influenza High Dose Unknown Completed [facility] Influenza Virus Vaccine Unknown Completed [facility] SARS-COV-2 COVID-19 UNSPECIFIED VACCINE Unknown Completed [facility] Influenza Virus Vaccine Quad IM Multi-dose 6+ MO Unknown Completed [facility] Influenza Virus Vaccine,quad Im,preserve Free 65+ (FLUAD) Unknown Completed [facility] SARS-COV-2 COVID-19 VACCINE - (MODERNA) Unknown Completed [facility] Pneumococcal Polysaccharide, PPSV23 (PNEUMOVAX) Unknown Completed [facility] Pneumococcal 13 Conjugate, PCV13 (Prevnar 13) Unknown Completed [facility] TDAP Unknown Completed [facility] Influenza High Dose Unknown Completed [facility] Influenza Virus Vaccine Unknown Completed [facility] SARS-COV-2 COVID-19 UNSPECIFIED VACCINE Unknown Completed [facility] Influenza Virus Vaccine Quad IM Multi-dose 6+ MO Unknown Completed [facility] Influenza Virus Vaccine,quad Im,preserve Free 65+ (FLUAD) Unknown Completed [facility] SARS-COV-2 COVID-19 VACCINE - (MODERNA) Unknown Completed [facility] Pneumococcal 13 Conjugate, PCV13 (Prevnar 13) Unknown Completed [facility] TDAP Unknown Completed [facility] Influenza Virus Vaccine Quad IM Multi-dose 6+ MO Unknown Completed [facility] Influenza Virus Vaccine,quad Im,preserve Free 65+ (FLUAD) Unknown Completed [facility] Pneumococcal Polysaccharide, PPSV23 (PNEUMOVAX) Unknown Completed [facility] Influenza High Dose Unknown Completed [facility] Influenza Virus Vaccine Unknown Completed [facility] SARS-COV-2 COVID-19 UNSPECIFIED VACCINE Unknown Completed [facility] SARS-COV-2 COVID-19 VACCINE - (MODERNA) Unknown Completed [facility] Pneumococcal Polysaccharide, PPSV23 (PNEUMOVAX) Unknown Completed [facility] Pneumococcal 13 Conjugate, PCV13 (Prevnar 13) Unknown Completed [facility] TDAP Unknown Completed [facility] Influenza High Dose Unknown Completed [facility] Influenza Virus Vaccine Unknown Completed [facility] SARS-COV-2 COVID-19 UNSPECIFIED VACCINE Unknown Completed [facility] Influenza Virus Vaccine Quad IM Multi-dose 6+ MO Unknown Completed [facility] Influenza Virus Vaccine,quad Im,preserve Free 65+ (FLUAD) Unknown Completed [facility] SARS-COV-2 COVID-19 VACCINE - (MODERNA) Unknown Completed [facility] Pneumococcal Polysaccharide, PPSV23 (PNEUMOVAX) Unknown Completed [facility] Pneumococcal 13 Conjugate, PCV13 (Prevnar 13) Unknown Completed [facility] TDAP Unknown Completed [facility] Influenza High Dose Unknown Completed [facility] Influenza Virus Vaccine Unknown Completed [facility] SARS-COV-2 COVID-19 UNSPECIFIED VACCINE Unknown Completed [facility] Influenza Virus Vaccine Quad IM Multi-dose 6+ MO Unknown Completed [facility] Influenza Virus Vaccine,quad Im,preserve Free 65+ (FLUAD) Unknown Completed [facility] SARS-COV-2 COVID-19 VACCINE - (MODERNA) Unknown [facility] Pneumococcal Polysaccharide, PPSV23 (PNEUMOVAX) Unknown Completed [facility] Pneumococcal 13 Conjugate, PCV13 (Prevnar 13) Unknown Completed [facility] TDAP Unknown Completed [facility] Influenza High Dose Unknown Completed [facility] Influenza Virus Vaccine Unknown Completed [facility] SARS-COV-2 COVID-19 UNSPECIFIED VACCINE Unknown Completed [facility] Influenza Virus Vaccine Quad IM Multi-dose 6+ MO Unknown Completed [facility] Influenza Virus Vaccine,quad Im,preserve Free 65+ (FLUAD) Unknown Completed [facility] SARS-COV-2 COVID-19 VACCINE - (MODERNA) Unknown Completed [facility] Pneumococcal Unspecified Unknown Completed [facility] Pneumococcal Polysaccharide, PPSV23 (PNEUMOVAX) Unknown Completed [facility] Pneumococcal 13 Conjugate, PCV13 (Prevnar 13) Unknown Completed [facility] TDAP Unknown Completed [facility] Influenza High Dose Unknown Completed [facility] Influenza Virus Vaccine Unknown Completed [facility] SARS-COV-2 COVID-19 UNSPECIFIED VACCINE Unknown [facility] Influ[facility] Virus Vaccine Quad IM Multi-dose 6+ MO Unknown Completed [facility] Influenza Virus Vaccine,quad Im,preserve Free 65+ (FLUAD) Unknown Completed [facility] SARS-COV-2 COVID-19 VACCINE - (MODERNA) Unknown Completed [facility] Pneumococcal Unspecified Unknown Completed [facility] Pneumococcal Polysaccharide, PPSV23 (PNEUMOVAX) Unknown Completed [facility] Pneumococcal 13 Conjugate, PCV13 (Prevnar 13) Unknown Completed [facility] TDAP Unknown Completed [facility] Influenza High Dose Unknown Completed [facility] Influenza Virus Vaccine Unknown Completed [facility] SARS-COV-2 COVID-19 UNSPECIFIED VACCINE Unknown Completed [facility] Influenza Virus Vaccine Quad IM Multi-dose 6+ MO Unknown Completed [facility] Influenza Virus Vaccine,quad Im,preserve Free 65+ (FLUAD) Unknown Completed [facility] SARS-COV-2 COVID-19 VACCINE - (MODERNA) Unknown Completed [facility] Pneumococcal Unspecified Unknown Completed [facility] Pneumococcal Polysaccharide, PPSV23 (PNEUMOVAX) Unknown Completed [facility] Pneumococcal 13 Conjugate, PCV13 (Prevnar 13) Unknown Completed [facility] TDAP Unknown Completed [facility] Influenza High Dose Unknown Completed [facility] Influenza Virus Vaccine Unknown Completed [facility] SARS-COV-2 COVID-19 UNSPECIFIED VACCINE Unknown Completed [facility] Influenza Virus Vaccine Quad IM Multi-dose 6+ MO Unknown Completed [facility] Influenza Virus Vaccine,quad Im,preserve Free 65+ (FLUAD) Unknown Completed [facility] SARS-COV-2 COVID-19 VACCINE - (MODERNA) Unknown Completed [facility] Pneumococcal Unspecified Unknown Completed [facility] Pneumococcal Polysaccharide, PPSV23 (PNEUMOVAX) Unknown Completed [facility] Pneumococcal 13 Conjugate, PCV13 (Prevnar 13) Unknown Completed [facility] TDAP Unknown Completed [facility] Influenza High Dose Unknown Completed [facility] Influenza Virus Vaccine Unknown Completed [facility] SARS-COV-2 COVID-19 UNSPECIFIED VACCINE Unknown Completed [facility] Influenza Virus Vaccine Quad IM Multi-dose 6+ MO Unknown Completed [facility] Influenza Virus Vaccine,quad Im,preserve Free 65+ (FLUAD) Unknown Completed [facility] SARS-COV-2 COVID-19 VACCINE - (MODERNA) Unknown Completed [facility] Pneumococcal Unspecified Unknown Completed [facility] Pneumococcal Polysaccharide, PPSV23 (PNEUMOVAX) Unknown Completed [facility] Pneumococcal 13 Conjugate, PCV13 (Prevnar 13) Unknown Completed [facility] TDAP Unknown Completed [facility] Influenza High Dose Unknown Completed [facility] Influenza Virus Vaccine Unknown Completed [facility] SARS-COV-2 COVID-19 UNSPECIFIED VACCINE Unknown Completed [facility] Influenza Virus Vaccine Quad IM Multi-dose 6+ MO Unknown Completed [facility] Influenza Virus Vaccine,quad Im,preserve Free 65+ (FLUAD) Unknown Completed [facility] SARS-COV-2 COVID-19 VACCINE - (MODERNA) Unknown Completed [facility] Pneumococcal Unspecified Unknown Completed [facility] Pneumococcal Polysaccharide, PPSV23 (PNEUMOVAX) Unknown Completed [facility] Pneumococcal 13 Conjugate, PCV13 (Prevnar 13) Unknown Completed [facility] TDAP Unknown Completed [facility] Influenza High Dose Unknown Completed [facility] Influenza Virus Vaccine Unknown Completed [facility] SARS-COV-2 COVID-19 UNSPECIFIED VACCINE Unknown Completed [facility] Influenza Virus Vaccine Quad IM Multi-dose 6+ MO Unknown Completed [facility] Influenza Virus Vaccine,quad Im,preserve Free 65+ (FLUAD) Unknown Completed [facility] SARS-COV-2 COVID-19 VACCINE - (MODERNA) Unknown [facility] Pneumococcal Unspecified Unknown Completed [facility] Pneumococcal Polysaccharide, PPSV23 (PNEUMOVAX) Unknown Completed [facility] Pneumococcal 13 Conjugate, PCV13 (Prevnar 13) Unknown Completed [facility] TDAP Unknown Completed [facility] Influenza High Dose Unknown Completed [facility] Influenza Virus Vaccine Unknown Completed [facility] SARS-COV-2 COVID-19 UNSPECIFIED VACCINE Unknown Completed [facility] Influenza Virus Vaccine Quad IM Multi-dose 6+ MO Unknown Completed [facility] Influenza Virus Vaccine,quad Im,preserve Free 65+ (FLUAD) Unknown Completed [facility] SARS-COV-2 COVID-19 VACCINE - (MODERNA) Unknown Completed [facility] Pneumococcal Unspecified Unknown Completed [facility] Pneumococcal Polysaccharide, PPSV23 (PNEUMOVAX) Unknown Completed [facility] Pneumococcal 13 Conjugate, PCV13 (Prevnar 13) Unknown Completed [facility] TDAP Unknown Completed [facility] Influenza High Dose Unknown Completed [facility] Influenza Virus Vaccine Unknown Completed [facility] SARS-COV-2 COVID-19 UNSPECIFIED VACCINE Unknown Completed [facility] Influenza Virus Vaccine Quad IM Multi-dose 6+ MO Unknown Completed [facility] Influenza Virus Vaccine,quad Im,preserve Free 65+ (FLUAD) Unknown Completed [facility] SARS-COV-2 COVID-19 VACCINE - (MODERNA) Unknown Completed [facility] Pneumococcal Unspecified Unknown Completed [facility] Pneumococcal Polysaccharide, PPSV23 (PNEUMOVAX) Unknown Completed [facility] Pneumococcal 13 Conjugate, PCV13 (Prevnar 13) Unknown Completed [facility] TDAP Unknown Completed [facility] Influenza High Dose Unknown Completed [facility] Influenza Virus Vaccine Unknown Completed [facility] SARS-COV-2 COVID-19 UNSPECIFIED VACCINE Unknown Completed [facility] Influenza Virus Vaccine Quad IM Multi-dose 6+ MO Unknown Completed [facility] Influenza Virus Vaccine,quad Im,preserve Free 65+ (FLUAD) Unknown Completed [facility] SARS-COV-2 COVID-19 VACCINE - (MODERNA) Unknown Completed [facility] Pneumococcal Unspecified Unknown Completed [facility] Pneumococcal 13 Conjugate, PCV13 (Prevnar 13) Unknown Completed [facility] TDAP Unknown Completed [facility] Influenza Virus Vaccine Quad IM Multi-dose 6+ MO Unknown Completed [facility] Influenza Virus Vaccine,quad Im,preserve Free 65+ (FLUAD) Unknown Completed [facility] Pneumococcal Polysaccharide, PPSV23 (PNEUMOVAX) Unknown Completed [facility] Influenza High Dose Unknown Completed [facility] Influenza Virus Vaccine Unknown Completed [facility] SARS-COV-2 COVID-19 UNSPECIFIED VACCINE Unknown Completed [facility] SARS-COV-2 COVID-19 VACCINE - (MODERNA) Unknown Completed [facility] Pneumococcal Unspecified Unknown Completed [facility] Pneumococcal Polysaccharide, PPSV23 (PNEUMOVAX) Unknown Completed [facility] Pneumococcal 13 Conjugate, PCV13 (Prevnar 13) Unknown Completed [facility] TDAP Unknown Completed [facility] Influenza High Dose Unknown Completed [facility] Influenza Virus Vaccine Unknown Completed [facility] SARS-COV-2 COVID-19 UNSPECIFIED VACCINE Unknown Completed [facility] Influenza Virus Vaccine Quad IM Multi-dose 6+ MO Unknown Completed [facility] Influenza Virus Vaccine,quad Im,preserve Free 65+ (FLUAD) Unknown Completed [facility] SARS-COV-2 COVID-19 VACCINE - (MODERNA) Unknown Completed [facility] Pneumococcal Unspecified Unknown Completed [facility] Pneumococcal Polysaccharide, PPSV23 (PNEUMOVAX) Unknown Completed [facility] Pneumococcal 13 Conjugate, PCV13 (Prevnar 13) Unknown Completed [facility] TDAP Unknown Completed [facility] Influenza High Dose Unknown Completed [facility] Influenza Virus Vaccine Unknown Completed [facility] SARS-COV-2 COVID-19 UNSPECIFIED VACCINE Unknown Completed [facility] Influenza Virus Vaccine Quad IM Multi-dose 6+ MO Unknown Completed [facility] Influenza Virus Vaccine,quad Im,preserve Free 65+ (FLUAD) Unknown Completed [facility] SARS-COV-2 COVID-19 VACCINE - (MODERNA) Unknown Completed [facility] Pneumococcal Unspecified Unknown Completed [facility] Pneumococcal 13 Conjugate, PCV13 (Prevnar 13) Unknown Completed [facility] TDAP Unknown Completed [facility] Influenza High Dose Unknown Completed [facility] Influenza Virus Vaccine Unknown Completed [facility] SARS-COV-2 COVID-19 UNSPECIFIED VACCINE Unknown Completed [facility] Influenza Virus Vaccine Quad IM Multi-dose 6+ MO Unknown Completed [facility] Pneumococcal Polysaccharide, PPSV23 (PNEUMOVAX) Unknown Completed [facility] Influenza Virus Vaccine,quad Im,preserve Free 65+ (FLUAD) Unknown Completed [facility] SARS-COV-2 COVID-19 VACCINE - (MODERNA) Unknown Completed [facility] Pneumococcal Unspecified Unknown Completed [facility] Pneumococcal 13 Conjugate, PCV13 (Prevnar 13) Unknown Completed [facility] TDAP Unknown Completed [facility] Influenza Virus Vaccine Quad IM Multi-dose 6+ MO Unknown Completed [facility] Influenza Virus Vaccine,quad Im,preserve Free 65+ (FLUAD) Unknown Completed [facility] Pneumococcal Polysaccharide, PPSV23 (PNEUMOVAX) Unknown Completed [facility] Influenza High Dose Unknown Completed [facility] Influenza Virus Vaccine Unknown Completed [facility] SARS-COV-2 COVID-19 UNSPECIFIED VACCINE Unknown [facility] VACCINE - (MODERNA) Unknown Completed [facility] Pneumococcal Unspecified Unknown Completed [facility] Pneumococcal Polysaccharide, PPSV23 (PNEUMOVAX) Unknown Completed [facility] Pneumococcal 13 Conjugate, PCV13 (Prevnar 13) Unknown Completed [facility] TDAP Unknown Completed [facility] Influenza High Dose Unknown Completed [facility] Influenza Virus Vaccine Unknown Completed [facility] SARS-COV-2 COVID-19 UNSPECIFIED VACCINE Unknown Completed [facility] Influenza Virus Vaccine Quad IM Multi-dose 6+ MO Unknown Completed [facility] Influenza Virus Vaccine,quad Im,preserve Free 65+ (FLUAD) Unknown Completed [facility] SARS-COV-2 COVID-19 VACCINE - (MODERNA) Unknown Completed [facility] Pneumococcal Unspecified Unknown Completed [facility] Pneumococcal Polysaccharide, PPSV23 (PNEUMOVAX) Unknown Completed [facility] Pneumococcal 13 Conjugate, PCV13 (Prevnar 13) Unknown Completed [facility] TDAP Unknown Completed [facility] Influenza High Dose Unknown Completed [facility] Influenza Virus Vaccine Unknown Completed [facility] SARS-COV-2 COVID-19 UNSPECIFIED VACCINE Unknown Completed [facility] Influenza Virus Vaccine Quad IM Multi-dose 6+ MO Unknown Completed [facility] Influenza Virus Vaccine,quad Im,preserve Free 65+ (FLUAD) Unknown Completed [facility] SARS-COV-2 COVID-19 VACCINE - (MODERNA) Unknown Completed [facility] Pneumococcal Unspecified Unknown Completed [facility] Pneumococcal Polysaccharide, PPSV23 (PNEUMOVAX) Unknown Completed [facility] Pneumococcal 13 Conjugate, PCV13 (Prevnar 13) Unknown Completed [facility] TDAP Unknown Completed [facility] Influenza High Dose Unknown Completed [facility] Influenza Virus Vaccine Unknown Completed [facility] SARS-COV-2 COVID-19 UNSPECIFIED VACCINE Unknown Completed [facility] Influenza Virus Vaccine Quad IM Multi-dose 6+ MO Unknown Completed [facility] Influenza Virus Vaccine,quad Im,preserve Free 65+ (FLUAD) Unknown Completed [facility] SARS-COV-2 COVID-19 VACCINE - (MODERNA) Unknown Completed [facility] Pneumococcal Unspecified Unknown Completed [facility] Pneumococcal 13 Conjugate, PCV13 (Prevnar 13) Unknown Completed [facility] TDAP Unknown Completed [facility] Influenza Virus Vaccine Quad IM Multi-dose 6+ MO Unknown Completed [facility] Influenza Virus Vaccine,quad Im,preserve Free 65+ (FLUAD) Unknown Completed [facility] Pneumococcal Polysaccharide, PPSV23 (PNEUMOVAX) Unknown Completed [facility] Pneumococcal 13 Conjugate, PCV13 (Prevnar 13) Unknown Completed [facility] TDAP Unknown Completed [facility] Influenza High Dose Unknown Completed [facility] Influenza Virus Vaccine Unknown Completed [facility] SARS-COV-2 COVID-19 UNSPECIFIED VACCINE Unknown [facility] Multi-dose 6+ MO Unknown Completed [facility] Influenza Virus Vaccine,quad Im,preserve Free 65+ (FLUAD) Unknown Completed [facility] SARS-COV-2 COVID-19 VACCINE - (MODERNA) Unknown Completed [facility] Pneumococcal Unspecified Unknown Completed [facility] Pneumococcal Polysaccharide, PPSV23 (PNEUMOVAX) Unknown Completed [facility] Pneumococcal 13 Conjugate, PCV13 (Prevnar 13) Unknown Completed [facility] TDAP Unknown Completed [facility] Influenza High Dose Unknown Completed [facility] Influenza Virus Vaccine Unknown Completed [facility] SARS-COV-2 COVID-19 UNSPECIFIED VACCINE Unknown Completed [facility] Influenza Virus Vaccine Quad IM Multi-dose 6+ MO Unknown Completed [facility] Influenza Virus Vaccine,quad Im,preserve Free 65+ (FLUAD) Unknown Completed [facility] SARS-COV-2 COVID-19 VACCINE - (MODERNA) Unknown Completed [facility] Pneumococcal Unspecified Unknown Completed [facility] Pneumococcal Polysaccharide, PPSV23 (PNEUMOVAX) Unknown Completed [facility] Pneumococcal 13 Conjugate, PCV13 (Prevnar 13) Unknown Completed [facility] TDAP Unknown Completed [facility] Influenza High Dose Unknown Completed [facility] Influenza Virus Vaccine Unknown Completed [facility] SARS-COV-2 COVID-19 UNSPECIFIED VACCINE Unknown [facility] Multi-dose 6+ MO Unknown Completed [facility] Influenza Virus Vaccine,quad Im,preserve Free 65+ (FLUAD) Unknown Completed [facility] SARS-COV-2 COVID-19 VACCINE - (MODERNA) Unknown Completed [facility] Pneumococcal Unspecified Unknown Completed [facility] Pneumococcal Polysaccharide, PPSV23 (PNEUMOVAX) Unknown Completed [facility] Pneumococcal 13 Conjugate, PCV13 (Prevnar 13) Unknown Completed [facility] TDAP Unknown Completed [facility] Influenza High Dose Unknown Completed [facility] Influenza Virus Vaccine Unknown Completed [facility] SARS-COV-2 COVID-19 UNSPECIFIED VACCINE Unknown Completed [facility] Influenza Virus Vaccine Quad IM Multi-dose 6+ MO Unknown Completed [facility] Influenza Virus Vaccine,quad Im,preserve Free 65+ (FLUAD) Unknown Completed [facility] SARS-COV-2 COVID-19 VACCINE - (MODERNA) [facility] Un[facility] Completed [facility] Pneumococcal Polysaccharide, PPSV23 (PNEUMOVAX) [facility] Dose Unknown Completed [facility] Influenza Virus Vaccine Unknown Completed [facility] SARS-COV-2 COVID-19 UNSPECIFIED VACCINE Unknown [facility] VACCINE - (MODERNA) Unknown [facility] Pneumococcal Unspecified Unknown Completed [facility] Pneumococcal Polysaccharide, PPSV23 (PNEUMOVAX) Unknown Completed [facility] Pneumococcal 13 Conjugate, PCV13 (Prevnar 13) Unknown Completed [facility] TDAP Unknown Completed [facility] Influenza High Dose Unknown Completed [facility] Influenza Virus Vaccine Unknown Completed [facility] SARS-COV-2 COVID-19 UNSPECIFIED VACCINE Unknown Completed [facility] Influenza Virus Vaccine Quad IM Multi-dose 6+ MO Unknown Completed [facility] Influenza Virus Vaccine,quad Im,preserve Free 65+ (FLUAD) Unknown Completed [facility] SARS-COV-2 COVID-19 VACCINE - (MODERNA) Unknown [facility] Pneum[facility] Unspecified Unknown Completed [facility] Pneumococcal Polysaccharide, PPSV23 (PNEUMOVAX) Unknown Completed [facility] Pneumococcal 13 Conjugate, PCV13 (Prevnar 13) Unknown Completed [facility] TDAP Unknown Completed [facility] Influenza High Dose Unknown Completed [facility] Influenza Virus Vaccine Unknown Completed [facility] SARS-COV-2 COVID-19 UNSPECIFIED VACCINE Unknown Com[facility] Influenza Virus Vaccine Quad IM Multi-dose 6+ MO Unknown Completed [facility] Influenza Virus Vaccine,quad Im,preserve Free 65+ (FLUAD) Unknown Completed [facility] SARS-COV-2 COVID-19 VACCINE - (MODERNA) Unknown Completed [facility] Pneumococcal Unspecified Unknown Completed [facility] Pneumococcal 13 Conjugate, PCV13 (Prevnar 13) Unknown Completed [facility] TDAP Unknown Completed [facility] Influenza Virus Vaccine Quad IM Multi-dose 6+ MO Unknown Completed [facility] Influenza Virus Vaccine,quad Im,preserve Free 65+ (FLUAD) Unknown Completed [facility] Pneumococcal Polysaccharide, PPSV23 (PNEUMOVAX) Unknown Completed [facility] Influenza High Dose Unknown Completed [facility] Influenza Virus Vaccine Unknown Completed [facility] SARS-COV-2 COVID-19 UNSPECIFIED VACCINE Unknown Completed [facility] SARS-COV-2 COVID-19 VACCINE - (MODERNA) Unknown Completed [facility] Pneumococcal Unspecified Unknown Completed [facility] Pneumococcal Polysaccharide, PPSV23 (PNEUMOVAX) Unknown Completed [facility] Pneumococcal 13 Conjugate, PCV13 (Prevnar 13) Unknown Completed [facility] TDAP Unknown Completed [facility] Influenza High Dose Unknown Completed [facility] Influenza Virus Vaccine Unknown Completed [facility] SARS-COV-2 COVID-19 UNSPECIFIED VACCINE Unknown Completed [facility] Influenza Virus Vaccine Quad IM Multi-dose 6+ MO Unknown Completed [facility] Influenza Virus Vaccine,quad Im,preserve Free 65+ (FLUAD) Unknown Completed [facility] SARS-COV-2 COVID-19 VACCINE - (MODERNA) Unknown Completed [facility] Pneumococcal Unspecified Unknown Completed [facility] Pneumococcal Polysaccharide, PPSV23 (PNEUMOVAX) Unknown Completed [facility] Pneumococcal 13 Conjugate, PCV13 (Prevnar 13) Unknown Completed [facility] TDAP Unknown Completed [facility] Influenza High Dose Unknown Completed [facility] Influenza Virus Vaccine Unknown Completed [facility] SARS-COV-2 COVID-19 UNSPECIFIED VACCINE Unknown Completed [facility] Influenza Virus Vaccine Quad IM Multi-dose 6+ MO Unknown Completed [facility] Influenza Virus Vaccine,quad Im,preserve Free 65+ (FLUAD) Unknown Completed [facility] SARS-COV-2 COVID-19 VACCINE - (MODERNA) Unknown Completed [facility] Pneumococcal Unspecified Unknown Completed [facility] Pneumococcal Polysaccharide, PPSV23 (PNEUMOVAX) Unknown Completed [facility] Pneumococcal 13 Conjugate, PCV13 (Prevnar 13) Unknown Completed [facility] TDAP Unknown Completed [facility] Influenza High Dose Unknown Completed [facility] Influenza Virus Vaccine Unknown Completed [facility] SARS-COV-2 COVID-19 UNSPECIFIED VACCINE Unknown Completed [facility] Influenza Virus Vaccine Quad IM Multi-dose 6+ MO Unknown Completed [facility] Influenza Virus Vaccine,quad Im,preserve Free 65+ (FLUAD) Unknown Completed [facility] SARS-COV-2 COVID-19 VACCINE - (MODERNA) Unknown Completed [facility] Pneumococcal Unspecified Unknown Completed [facility] Pneumococcal Polysaccharide, PPSV23 (PNEUMOVAX) Unknown Completed [facility] Pneumococcal 13 Conjugate, PCV13 (Prevnar 13) Unknown Completed [facility] TDAP Unknown Completed [facility] Influenza High Dose Unknown Completed [facility] Influenza Virus Vaccine Unknown Completed [facility] SARS-COV-2 COVID-19 UNSPECIFIED VACCINE Unknown Completed [facility] Influenza Virus Vaccine Quad IM Multi-dose 6+ MO Unknown Completed [facility] Influenza Virus Vaccine,quad Im,preserve Free 65+ (FLUAD) Unknown Completed [facility] SARS-COV-2 COVID-19 VACCINE - (MODERNA) Unknown Completed [facility] Pneumococcal Unspecified Unknown Completed [facility] Pneumococcal Polysaccharide, PPSV23 (PNEUMOVAX) Unknown Completed [facility] Pneumococcal 13 Conjugate, PCV13 (Prevnar 13) Unknown Completed [facility] TDAP Unknown Completed [facility] Influenza High Dose Unknown Completed [facility] Influenza Virus Vaccine Unknown Completed [facility] SARS-COV-2 COVID-19 UNSPECIFIED VACCINE Unknown Completed [facility] Influenza Virus Vaccine Quad IM Multi-dose 6+ MO Unknown Completed [facility] Influenza Virus Vaccine,quad Im,preserve Free 65+ (FLUAD) Unknown Completed [facility] SARS-COV-2 COVID-19 VACCINE - (MODERNA) Unknown Completed [facility] Pneumococcal Unspecified Unknown Completed [facility] Pneumococcal Polysaccharide, PPSV23 (PNEUMOVAX) Unknown Completed [facility] Pneumococcal 13 Conjugate, PCV13 (Prevnar 13) Unknown Completed [facility] TDAP Unknown Completed [facility] Influenza High Dose Unknown Completed [facility] Influenza Virus Vaccine Unknown Completed [facility] SARS-COV-2 COVID-19 UNSPECIFIED VACCINE Unknown [facility] Quad IM Multi-dose 6+ MO Unknown Completed [facility] Influenza Virus Vaccine,quad Im,preserve Free 65+ (FLUAD) Unknown Completed [facility] SARS-COV-2 COVID-19 VACCINE - (MODERNA) Unknown Completed [facility] Pneumococcal Unspecified Unknown Completed [facility] Pneumococcal Polysaccharide, PPSV23 (PNEUMOVAX) Unknown Completed [facility] Pneumococcal 13 Conjugate, PCV13 (Prevnar 13) Unknown Completed [facility] TDAP Unknown Completed [facility] Influenza High Dose Unknown Completed [facility] Influenza Virus Vaccine Unknown Completed [facility] SARS-COV-2 COVID-19 UNSPECIFIED VACCINE Unknown Completed [facility] Influenza Virus Vaccine Quad IM Multi-dose 6+ MO Unknown Completed [facility] Influenza Virus Vaccine,quad Im,preserve Free 65+ (FLUAD) Unknown Completed [facility] SARS-COV-2 COVID-19 VACCINE - (MODERNA) Unknown Completed [facility] Pneumococcal Unspecified Unknown Completed [facility] Pneumococcal Polysaccharide, PPSV23 (PNEUMOVAX) Unknown Completed [facility] Pneumococcal 13 Conjugate, PCV13 (Prevnar 13) Unknown Completed [facility] TDAP Unknown Completed [facility] Influenza High Dose Unknown Completed [facility] Influenza Virus Vaccine Unknown Completed [facility] SARS-COV-2 COVID-19 UNSPECIFIED VACCINE Unknown Completed [facility] Influenza Virus Vaccine Quad IM Multi-dose 6+ MO Unknown Completed [facility] Influenza Virus Vaccine,quad Im,preserve Free 65+ (FLUAD) Unknown Completed [facility] SARS-COV-2 COVID-19 VACCINE - (MODERNA) Unknown Completed [facility] Pneumococcal Unspecified Unknown Completed [facility] Pneumococcal Polysaccharide, PPSV23 (PNEUMOVAX) Unknown Completed [facility] Pneumococcal 13 Conjugate, PCV13 (Prevnar 13) Unknown Completed [facility] TDAP Unknown Completed [facility] Influenza High Dose Unknown Completed [facility] Influenza Virus Vaccine Unknown Completed [facility] SARS-COV-2 COVID-19 UNSPECIFIED VACCINE Unknown Completed [facility] Influenza Virus Vaccine Quad IM Multi-dose 6+ MO Unknown Completed [facility] Influenza Virus Vaccine,quad Im,preserve Free 65+ (FLUAD) Unknown Completed [facility] SARS-COV-2 COVID-19 VACCINE - (MODERNA) Unknown Completed [facility] Pneumococcal Unspecified Unknown Completed [facility] Pneumococcal Polysaccharide, PPSV23 (PNEUMOVAX) Unknown Completed [facility] Pneumococcal 13 Conjugate, PCV13 (Prevnar 13) Unknown Completed [facility] TDAP Unknown Completed [facility] Influenza High Dose Unknown Completed [facility] Influenza Virus Vaccine Unknown Completed [facility] SARS-COV-2 COVID-19 UNSPECIFIED VACCINE Unknown [facility] Quad IM Multi-dose 6+ MO Unknown Completed [facility] Influenza Virus Vaccine,quad Im,preserve Free 65+ (FLUAD) Unknown Completed [facility] SARS-COV-2 COVID-19 VACCINE - (MODERNA) Unknown Completed [facility] Pneumococcal Unspecified Unknown Completed [facility] Pneumococcal Polysaccharide, PPSV23 (PNEUMOVAX) Unknown Completed [facility] Pneumococcal 13 Conjugate, PCV13 (Prevnar 13) Unknown Completed [facility] TDAP Unknown Completed [facility] Influenza High Dose Unknown Completed [facility] Influenza Virus Vaccine Unknown Completed [facility] SARS-COV-2 COVID-19 UNSPECIFIED VACCINE Unknown Completed [facility] Influenza Virus Vaccine Quad IM Multi-dose 6+ MO Unknown Completed [facility] Influenza Virus Vaccine,quad Im,preserve Free 65+ (FLUAD) Unknown Completed [facility] SARS-COV-2 COVID-19 VACCINE - (MODERNA) Unknown Completed [facility] Pneumococcal Unspecified Unknown Completed [facility] Pneumococcal Polysaccharide, PPSV23 (PNEUMOVAX) Unknown Completed [facility] Pneumococcal 13 Conjugate, PCV13 (Prevnar 13) Unknown Completed [facility] TDAP Unknown Completed [facility] Influenza High Dose Unknown Completed [facility] Influenza Virus Vaccine Unknown Completed [facility] SARS-COV-2 COVID-19 UNSPECIFIED VACCINE Unknown Completed [facility] Influenza Virus Vaccine Quad IM Multi-dose 6+ MO Unknown Completed [facility] Influenza Virus Vaccine,quad Im,preserve Free 65+ (FLUAD) Unknown Completed [facility] SARS-COV-2 COVID-19 VACCINE - (MODERNA) Unknown Completed [facility] Pneumococcal Unspecified Unknown Completed [facility] Pneumococcal Polysaccharide, PPSV23 (PNEUMOVAX) Unknown Completed [facility] Pneumococcal 13 Conjugate, PCV13 (Prevnar 13) Unknown Completed [facility] TDAP Unknown Completed [facility] Influenza High Dose Unknown Completed [facility] Influenza Virus Vaccine Unknown Completed [facility] SARS-COV-2 COVID-19 UNSPECIFIED VACCINE Unknown Completed [facility] Influenza Virus Vaccine Quad IM Multi-dose 6+ MO Unknown Completed [facility] Influenza Virus Vaccine,quad Im,preserve Free 65+ (FLUAD) Unknown Completed [facility] SARS-COV-2 COVID-19 VACCINE - (MODERNA) Unknown Completed [facility] Pneumococcal Unspecified Unknown Completed [facility] Pneumococcal Polysaccharide, PPSV23 (PNEUMOVAX) Unknown Completed [facility] Pneumococcal 13 Conjugate, PCV13 (Prevnar 13) Unknown Completed [facility] TDAP Unknown Completed [facility] Influenza High Dose Unknown Completed [facility] Influenza Virus Vaccine Unknown Completed [facility] SARS-COV-2 COVID-19 UNSPECIFIED VACCINE Unknown Completed [facility] Influenza Virus Vaccine Quad IM Multi-dose 6+ MO Unknown Completed [facility] Influenza Virus Vaccine,quad Im,preserve Free 65+ (FLUAD) Unknown Completed [facility] SARS-COV-2 COVID-19 VACCINE - (MODERNA) Unknown Completed [facility] Pneumococcal Unspecified Unknown Completed [facility] Pneumococcal Polysaccharide, PPSV23 (PNEUMOVAX) Unknown [facility] Pneumococcal 13 Conjugate, PCV13 (Prevnar 13) Unknown Completed [facility] TDAP Unknown Completed [facility] Influenza High Dose Unknown Completed [facility] Influenza Virus Vaccine Unknown Completed [facility] SARS-COV-2 COVID-19 UNSPECIFIED VACCINE Unknown Completed [facility] Influenza Virus Vaccine Quad IM Multi-dose 6+ MO Unknown Completed [facility] Influenza Virus Vaccine,quad Im,preserve Free 65+ (FLUAD) Unknown Completed [facility] SARS-COV-2 COVID-19 VACCINE - (MODERNA) Unknown Completed [facility] Pneumococcal Unspecified Unknown Completed [facility] Pneumococcal Polysaccharide, PPSV23 (PNEUMOVAX) Unknown Completed [facility] Pneumococcal 13 Conjugate, PCV13 (Prevnar 13) Unknown Completed [facility] TDAP Unknown Completed [facility] Influenza High Dose Unknown Completed [facility] Influenza Virus Vaccine Unknown Completed [facility] SARS-COV-2 COVID-19 UNSPECIFIED VACCINE Unknown Completed [facility] Influenza Virus Vaccine Quad IM Multi-dose 6+ MO Unknown Completed [facility] Influenza Virus Vaccine,quad Im,preserve Free 65+ (FLUAD) Unknown Completed [facility] SARS-COV-2 COVID-19 VACCINE - (MODERNA) Unknown Completed [facility] Pneumococcal Unspecified Unknown Completed [facility] Pneumococcal Polysaccharide, PPSV23 (PNEUMOVAX) Unknown Completed [facility] Pneumococcal 13 Conjugate, PCV13 (Prevnar 13) Unknown Completed [facility] TDAP Unknown Completed [facility] Influenza High Dose Unknown Completed [facility] Influenza Virus Vaccine Unknown Completed [facility] SARS-COV-2 COVID-19 UNSPECIFIED VACCINE Unknown Completed [facility] Influenza Virus Vaccine Quad IM Multi-dose 6+ MO Unknown Completed [facility] Influenza Virus Vaccine,quad Im,preserve Free 65+ (FLUAD) Unknown Completed [facility] SARS-COV-2 COVID-19 VACCINE - (MODERNA) Unknown Completed [facility] Pneumococcal Unspecified Unknown Completed [facility] Pneumococcal Polysaccharide, PPSV23 (PNEUMOVAX) Unknown Completed [facility] Pneumococcal 13 Conjugate, PCV13 (Prevnar 13) Unknown Completed [facility] TDAP Unknown Completed [facility] Influenza High Dose Unknown Completed [facility] Influenza Virus Vaccine Unknown Completed [facility] SARS-COV-2 COVID-19 UNSPECIFIED VACCINE Unknown Completed [facility] Influenza Virus Vaccine Quad IM Multi-dose 6+ MO Unknown Completed [facility] Influenza Virus Vaccine,quad Im,preserve Free 65+ (FLUAD) Unknown Completed [facility] SARS-COV-2 COVID-19 VACCINE - (MODERNA) Unknown Completed [facility] Pneumococcal Unspecified Unknown Completed [facility] Pneumococcal Polysaccharide, PPSV23 (PNEUMOVAX) Unknown Completed [facility] Pneumococcal 13 Conjugate, PCV13 (Prevnar 13) Unknown Completed [facility] TDAP Unknown Completed [facility] Influenza High Dose Unknown Completed [facility] Influenza Virus Vaccine Unknown Completed [facility] SARS-COV-2 COVID-19 UNSPECIFIED VACCINE Unknown Completed [facility] Influenza Virus Vaccine Quad IM Multi-dose 6+ MO Unknown Completed [facility] Influenza Virus Vaccine,quad Im,preserve Free 65+ (FLUAD) Unknown Completed [facility] SARS-COV-2 COVID-19 VACCINE - (MODERNA) Unknown Completed [facility] Pneumococcal Unspecified Unknown Completed [facility] Pneumococcal Polysaccharide, PPSV23 (PNEUMOVAX) Unknown Completed [facility] Pneumococcal 13 Conjugate, PCV13 (Prevnar 13) Unknown Completed [facility] TDAP Unknown Completed [facility] Influenza High Dose Unknown Completed [facility] Influenza Virus Vaccine Unknown Completed [facility] SARS-COV-2 COVID-19 UNSPECIFIED VACCINE Unknown [facility] Vacc[facility] Quad IM Multi-dose 6+ MO Unknown Completed [facility] Influenza Virus Vaccine,quad Im,preserve Free 65+ (FLUAD) Unknown Completed [facility] SARS-COV-2 COVID-19 VACCINE - (MODERNA) Unknown Completed [facility] Pneumococcal Unspecified Unknown Completed [facility] Pneumococcal Polysaccharide, PPSV23 (PNEUMOVAX) Unknown Completed [facility] Pneumococcal 13 Conjugate, PCV13 (Prevnar 13) Unknown Completed [facility] TDAP Unknown Completed [facility] Influenza High Dose Unknown Completed [facility] Influenza Virus Vaccine Unknown Completed [facility] SARS-COV-2 COVID-19 UNSPECIFIED VACCINE Unknown Completed [facility] Influenza Virus Vaccine Quad IM Multi-dose 6+ MO Unknown Completed [facility] Influenza Virus Vaccine,quad Im,preserve Free 65+ (FLUAD) Unknown Completed [facility] SARS-COV-2 COVID-19 VACCINE - (MODERNA) Unknown Completed [facility] Pneumococcal Unspecified Unknown Completed [facility] Pneumococcal 13 Conjugate, PCV13 (Prevnar 13) Unknown Completed [facility] TDAP Unknown Completed [facility] Influenza High Dose Unknown Completed [facility] Influenza Virus Vaccine Unknown Com[facility] [facility] P[facility] Polysaccharide, PPSV23 (PNEUMOVAX) Unknown Completed [facility] SARS-COV-2 COVID-19 UNSPECIFIED VACCINE Unknown Completed [facility] Influenza Virus Vaccine Quad IM Multi-dose 6+ MO Unknown Completed [facility] Influenza Virus Vaccine,quad Im,preserve Free 65+ (FLUAD) Unknown Completed [facility] SARS-COV-2 COVID-19 VACCINE - (MODERNA) Unknown Completed [facility] Pneumococcal Unspecified Unknown Completed [facility] Pneumococcal Polysaccharide, PPSV23 (PNEUMOVAX) Unknown Completed [facility] Pneumococcal 13 Conjugate, PCV13 (Prevnar 13) Unknown Completed [facility] TDAP Unknown Completed [facility] Influenza High Dose Unknown Completed [facility] Influenza Virus Vaccine Unknown Completed [facility] SARS-COV-2 COVID-19 UNSPECIFIED VACCINE Unknown Completed [facility] Influenza Virus Vaccine Quad IM Multi-dose 6+ MO Unknown Completed [facility] Influenza Virus Vaccine,quad Im,preserve Free 65+ (FLUAD) Unknown Completed [facility] SARS-COV-2 COVID-19 VACCINE - (MODERNA) Unknown Completed [facility] Pneumococcal Unspecified Unknown Completed [facility] Pneumococcal Polysaccharide, PPSV23 (PNEUMOVAX) Unknown Completed [facility] Pneumococcal 13 Conjugate, PCV13 (Prevnar 13) Unknown Completed [facility] TDAP Unknown Completed [facility] Influenza High Dose Unknown Completed [facility] Influenza Virus Vaccine Unknown Completed [facility] SARS-COV-2 COVID-19 UNSPECIFIED VACCINE Unknown Completed [facility] Influenza Virus Vaccine Quad IM Multi-dose 6+ MO Unknown Completed [facility] Influenza Virus Vaccine,quad Im,preserve Free 65+ (FLUAD) Unknown Completed [facility] SARS-COV-2 COVID-19 VACCINE - (MODERNA) Unknown Completed [facility] Pneumococcal Unspecified Unknown Completed [facility] Pneumococcal Polysaccharide, PPSV23 (PNEUMOVAX) Unknown Completed [facility] Pneumococcal 13 Conjugate, PCV13 (Prevnar 13) Unknown Completed [facility] TDAP Unknown Completed [facility] Influenza High Dose Unknown Completed [facility] Influenza Virus Vaccine Unknown Completed [facility] SARS-COV-2 COVID-19 UNSPECIFIED VACCINE Unknown Completed [facility] Influenza Virus Vaccine Quad IM Multi-dose 6+ MO Unknown Completed [facility] Influenza Virus Vaccine,quad Im,preserve Free 65+ (FLUAD) Unknown Completed [facility] SARS-COV-2 COVID-19 VACCINE - (MODERNA) Unknown Completed [facility] Pneumococcal Unspecified Unknown Completed [facility] Pneumococcal Polysaccharide, PPSV23 (PNEUMOVAX) Unknown Completed [facility] Pneumococcal 13 Conjugate, PCV13 (Prevnar 13) Unknown Completed [facility] TDAP Unknown Completed [facility] Influenza High Dose Unknown Completed [facility] Influenza Virus Vaccine Unknown Completed [facility] SARS-COV-2 COVID-19 UNSPECIFIED VACCINE Unknown Completed [facility] Influenza Virus Vaccine Quad IM Multi-dose 6+ MO Unknown Completed [facility] Influenza Virus Vaccine,quad Im,preserve Free 65+ (FLUAD) Unknown Completed [facility] SARS-COV-2 COVID-19 VACCINE - (MODERNA) Unknown Completed [facility] Pneumococcal Unspecified Unknown Completed [facility] Pneumococcal Polysaccharide, PPSV23 (PNEUMOVAX) Unknown Completed [facility] Pneumococcal 13 Conjugate, PCV13 (Prevnar 13) Unknown Completed [facility] TDAP Unknown Completed [facility] Influenza High Dose Unknown Completed [facility] Influenza Virus Vaccine Unknown Completed [facility] SARS-COV-2 COVID-19 UNSPECIFIED VACCINE Unknown [facility] Multi-dose 6+ MO Unknown Completed [facility] Influenza Virus Vaccine,quad Im,preserve Free 65+ (FLUAD) Unknown Completed [facility] SARS-COV-2 COVID-19 VACCINE - (MODERNA) Unknown Completed [facility] Pneumococcal Unspecified Unknown Completed [facility] Pneumococcal Polysaccharide, PPSV23 (PNEUMOVAX) Unknown Completed [facility] Pneumococcal 13 Conjugate, PCV13 (Prevnar 13) Unknown Completed [facility] TDAP Unknown Completed [facility] Influenza High Dose Unknown Completed [facility] Influenza Virus Vaccine Unknown Completed [facility] SARS-COV-2 COVID-19 UNSPECIFIED VACCINE Unknown Completed [facility] Influenza Virus Vaccine Quad IM Multi-dose 6+ MO Unknown Completed [facility] Influenza Virus Vaccine,quad Im,preserve Free 65+ (FLUAD) Unknown Completed [facility] SARS-COV-2 COVID-19 VACCINE - (MODERNA) Unknown Completed [facility] Pneumococcal Unspecified Unknown Completed [facility] Pneumococcal Polysaccharide, PPSV23 (PNEUMOVAX) Unknown Completed [facility] Pneumococcal 13 Conjugate, PCV13 (Prevnar 13) Unknown Completed [facility] TDAP Unknown Completed [facility] Influenza High Dose Unknown Completed [facility] Influenza Virus Vaccine Unknown Completed [facility] SARS-COV-2 COVID-19 UNSPECIFIED VACCINE Unknown Completed [facility] Influenza Virus Vaccine Quad IM Multi-dose 6+ MO Unknown Completed [facility] Influenza Virus Vaccine,quad Im,preserve Free 65+ (FLUAD) Unknown Completed [facility] SARS-COV-2 COVID-19 VACCINE - (MODERNA) Unknown Completed [facility] Pneumococcal Unspecified Unknown Completed [facility] Pneumococcal Polysaccharide, PPSV23 (PNEUMOVAX) Unknown Completed [facility] Pneumococcal 13 Conjugate, PCV13 (Prevnar 13) Unknown Completed [facility] TDAP Unknown Completed [facility] Influenza High Dose Unknown Completed [facility] Influenza Virus Vaccine Unknown Completed [facility] SARS-COV-2 COVID-19 UNSPECIFIED VACCINE Unknown Completed [facility] Influenza Virus Vaccine Quad IM Multi-dose 6+ MO Unknown Completed [facility] Influenza Virus Vaccine,quad Im,preserve Free 65+ (FLUAD) Unknown Completed [facility] SARS-COV-2 COVID-19 VACCINE - (MODERNA) Unknown [facility] Pneumococcal Unspecified Unknown Completed [facility] Pneumococcal Polysaccharide, PPSV23 (PNEUMOVAX) Unknown [facility] Pneumococcal 13 Conjugate, PCV13 (Prevnar 13) Unknown Completed [facility] TDAP Unknown Completed [facility] Influenza High Dose Unknown Completed [facility] Influenza Virus Vaccine Unknown Completed [facility] SARS-COV-2 COVID-19 UNSPECIFIED VACCINE Unknown Completed [facility] Influenza Virus Vaccine Quad IM Multi-dose 6+ MO Unknown Completed [facility] Influenza Virus Vaccine,quad Im,preserve Free 65+ (FLUAD) Unknown Completed [facility] SARS-COV-2 COVID-19 VACCINE - (MODERNA) Unknown [facility] Pneumococcal Unspecified Unknown Completed [facility] Pneumococcal Polysaccharide, PPSV23 (PNEUMOVAX) Unknown Completed [facility] Pneumococcal 13 Conjugate, PCV13 (Prevnar 13) Unknown Completed [facility] TDAP Unknown Completed [facility] Influenza High Dose Unknown Completed [facility] Influenza Virus Vaccine Unknown Completed [facility] SARS-COV-2 COVID-19 UNSPECIFIED VACCINE Unknown [facility] Vaccine Quad IM Multi-dose 6+ MO Unknown Completed [facility] Influenza Virus Vaccine,quad Im,preserve Free 65+ (FLUAD) Unknown Completed [facility] SARS-COV-2 COVID-19 VACCINE - (MODERNA) Unknown [facility] Pneumococcal Unspecified Unknown Completed [facility] Pneumococcal Polysaccharide, PPSV23 (PNEUMOVAX) Unknown [facility] Pneumococcal 13 Conjugate, PCV13 (Prevnar 13) Unknown Completed [facility] TDAP Unknown Completed [facility] Influenza High Dose Unknown Completed [facility] Influenza Virus Vaccine Unknown Completed [facility] SARS-COV-2 COVID-19 UNSPECIFIED VACCINE Unknown Completed [facility] Influenza Virus Vaccine Quad IM Multi-dose 6+ MO Unknown Completed [facility] Influenza Virus Vaccine,quad Im,preserve Free 65+ (FLUAD) Unknown Completed [facility] SARS-COV-2 COVID-19 VACCINE - (MODERNA) Unknown Completed [facility] Pneumococcal Unspecified Unknown Completed [facility] Pneumococcal Polysaccharide, PPSV23 (PNEUMOVAX) Unknown Completed [facility] Pneumococcal 13 Conjugate, PCV13 (Prevnar 13) Unknown Completed [facility] TDAP Unknown Completed [facility] Influenza High Dose Unknown Completed [facility] Influenza Virus Vaccine Unknown Completed [facility] SARS-COV-2 COVID-19 UNSPECIFIED VACCINE Unknown Completed [facility] Influenza Virus Vaccine Quad IM Multi-dose 6+ MO Unknown Completed [facility] Influenza Virus Vaccine,quad Im,preserve Free 65+ (FLUAD) Unknown Completed [facility] SARS-COV-2 COVID-19 VACCINE - (MODERNA) Unknown Completed [facility] Pneumococcal Unspecified Unknown Completed [facility] Vital Signs Vital Name Observation Time Observation Value Comments S ource Systolic blood pressure 2024-05-10 21:28:00 135 mm[Hg] [facility] Diastolic blood pressure 2024-05-10 21:28:00 60 mm[Hg] [facility] Heart rate 2024-05-10 21:28:00 79 /min [facility] Body temperature 2024-05-10 21:18:00 36.78 Sherry [facility] Respiratory rate 2024-05-10 21:18:00 20 /min [facility] Body height 2024-05-10 21:18:00 170.2 cm [facility] Body weight 2024-05-10 21:18:00 102.059 kg [facility] BMI 2024-05-10 21:18:00 35.24 kg/m2 [facility] Oxygen saturation in Arterial blood by Pulse oximetry 2024-05-10 21:18:00 97 /min [facility] Systolic blood pressure 2024-04-30 17:48:00 128 mm[Hg] [facility] Diastolic blood pressure 2024-04-30 17:48:00 70 mm[Hg] [facility] Heart rate 2024-04-30 17:48:00 76 /min [facility] Body height 2024-04-30 17:48:00 170.2 cm [facility] Body weight 2024-04-30 17:48:00 109.317 kg [facility] BMI 2024-04-30 17:48:00 37.75 kg/m2 [facility] Oxygen saturation in Arterial blood by Pulse oximetry 2024-04-30 17:48:00 98 /min [facility] Systolic blood pressure 2024-04-17 15:04:00 124 mm[Hg] [facility] Diastolic blood pressure 2024-04-17 15:04:00 54 mm[Hg] [facility] Heart rate 2024-04-17 15:04:00 88 /min [facility] Body height 2024-04-17 15:04:00 170.2 cm [facility] Body weight 2024-04-17 15:04:00 109.317 kg [facility] BMI 2024-04-17 15:04:00 37.75 kg/m2 [facility] Systolic blood pressure 2024-04-03 19:07:00 152 mm[Hg] [facility] Diastolic blood pressure 2024-04-03 19:07:00 74 mm[Hg] [facility] Heart rate 2024-04-03 18:58:00 89 /min [facility] Body height 2024-04-03 18:58:00 170.2 cm [facility] Body weight 2024-04-03 18:58:00 109.317 kg [facility] BMI 2024-04-03 18:58:00 37.75 kg/m2 [facility] Oxygen saturation in Arterial blood by Pulse oximetry 2024-04-03 18:58:00 98 /min [facility] Systolic blood pressure 2024-01-31 17:44:00 98 mm[Hg] [facility] Diastolic blood pressure 2024-01-31 17:44:00 54 mm[Hg] [facility] Heart rate 2024-01-31 17:44:00 73 /min [facility] Body temperature 2024-01-31 17:44:00 36.94 Sherry [facility] Respiratory rate 2024-01-31 17:44:00 17 /min [facility] Body height 2024-01-31 17:44:00 170.2 cm [facility] Body weight 2024-01-31 17:44:00 109.045 kg wt per pt - declined to weigh [facility] BMI 2024-01-31 17:44:00 37.65 kg/m2 [facility] Oxygen saturation in Arterial blood by Pulse oximetry 2024-01-31 17:44:00 96 /min [facility] Systolic blood pressure 2024-01-31 15:44:00 137 mm[Hg] [facility] Diastolic blood pressure 2024-01-31 15:44:00 74 mm[Hg] [facility] Heart rate 2024-01-31 15:43:00 81 /min [facility] Body temperature 2024-01-31 15:43:00 36.83 Sherry [facility] Respiratory rate 2024-01-31 15:43:00 18 /min [facility] Body height 2024-01-31 15:43:00 170.2 cm [facility] Body weight 2024-01-31 15:43:00 108.863 kg [facility] BMI 2024-01-31 15:43:00 37.59 kg/m2 [facility] Oxygen saturation in Arterial blood by Pulse oximetry 2024-01-31 15:43:00 98 /min [facility] Systolic blood pressure 2024-01-17 01:00:00 171 mm[Hg] [facility] Diastolic blood pressure 2024-01-17 01:00:00 92 mm[Hg] [facility] Heart rate 2024-01-17 01:00:00 84 /min [facility] Respiratory rate 2024-01-17 01:00:00 18 /min [facility] Oxygen saturation in Arterial blood by Pulse oximetry 2024-01-17 01:00:00 96 /min [facility] Body temperature 2024-01-17 00:44:00 36.5 Sherry [facility] Body height 2024-01-16 20:53:00 170.2 cm [facility] Body weight 2024-01-16 20:53:00 109.317 kg [facility] BMI 2024-01-16 20:53:00 37.75 kg/m2 [facility] Systolic blood pressure 2023-12-27 15:40:00 144 mm[Hg] [facility] Diastolic blood pressure 2023-12-27 15:40:00 69 mm[Hg] [facility] Heart rate 2023-12-27 15:39:00 81 /min [facility] Body temperature 2023-12-27 15:39:00 36.72 Sherry [facility] Respiratory rate 2023-12-27 15:39:00 18 /min [facility] Body height 2023-12-27 15:39:00 170.2 cm [facility] Oxygen saturation in Arterial blood by Pulse oximetry 2023-12-27 15:39:00 97 /min [facility] Systolic blood pressure 2023-11-11 17:03:00 160 mm[Hg] [facility] Diastolic blood pressure 2023-11-11 17:03:00 60 mm[Hg] [facility] Heart rate 2023-11-11 16:03:00 76 /min [facility] Body temperature 2023-11-11 16:03:00 36.89 Sherry [facility] Respiratory rate 2023-11-11 16:03:00 18 /min [facility] Body height 2023-11-11 16:03:00 170.2 cm [facility] Body weight 2023-11-11 16:03:00 109.77 kg [facility] BMI 2023-11-11 16:03:00 37.90 kg/m2 [facility] Oxygen saturation in Arterial blood by Pulse oximetry 2023-11-11 16:03:00 95 /min [facility] Systolic blood pressure 2023-10-30 22:39:00 155 mm[Hg] [facility] Diastolic blood pressure 2023-10-30 22:39:00 69 mm[Hg] [facility] Heart rate 2023-10-30 22:39:00 80 /min [facility] Body temperature 2023-10-30 22:39:00 36.72 Sherry [facility] Respiratory rate 2023-10-30 22:39:00 18 /min [facility] Oxygen saturation in Arterial blood by Pulse oximetry 2023-10-30 22:39:00 99 /min [facility] Body height 2023-10-30 19:36:00 170.2 cm [facility] Body weight 2023-10-30 19:36:00 109.317 kg [facility] BMI 2023-10-30 19:36:00 37.75 kg/m2 [facility] Systolic blood pressure 2023-09-21 15:28:00 147 mm[Hg] [facility] Diastolic blood pressure 2023-09-21 15:28:00 65 mm[Hg] [facility] Heart rate 2023-09-21 15:28:00 64 /min [facility] Body temperature 2023-09-21 15:25:00 36.28 Sherry [facility] Body height 2023-09-21 15:25:00 170.2 cm [facility] Body weight 2023-09-21 15:25:00 109.317 kg [facility] BMI 2023-09-21 15:25:00 37.75 kg/m2 [facility] Oxygen saturation in Arterial blood by Pulse oximetry 2023-09-21 15:25:00 98 /min [facility] Systolic blood pressure 2023-08-12 17:07:00 148 mm[Hg] [facility] Diastolic blood pressure 2023-08-12 17:07:00 61 mm[Hg] [facility] Heart rate 2023-08-12 17:07:00 61 /min [facility] Respiratory rate 2023-08-12 17:07:00 18 /min [facility] Body height 2023-08-12 17:07:00 170.2 cm [facility] Body weight 2023-08-12 17:07:00 113.853 kg [facility] BMI 2023-08-12 17:07:00 39.31 kg/m2 [facility] Oxygen saturation in Arterial blood by Pulse oximetry 2023-08-12 17:07:00 99 /min [facility] Systolic blood pressure 2023-07-13 14:42:00 154 mm[Hg] [facility] Diastolic blood pressure 2023-07-13 14:42:00 56 mm[Hg] [facility] Heart rate 2023-07-13 14:36:00 75 /min [facility] Respiratory rate 2023-07-13 14:36:00 18 /min [facility] Body height 2023-07-13 14:36:00 170.2 cm [facility] Body weight 2023-07-13 14:36:00 113.853 kg [facility] BMI 2023-07-13 14:36:00 39.31 kg/m2 [facility] Oxygen saturation in Arterial blood by Pulse oximetry 2023-07-13 14:36:00 96 /min [facility] Systolic blood pressure 2023-07-08 20:05:00 125 mm[Hg] [facility] Diastolic blood pressure 2023-07-08 20:05:00 72 mm[Hg] [facility] Heart rate 2023-07-08 20:05:00 77 /min [facility] Body temperature 2023-07-08 20:05:00 36.33 Sherry [facility] Body height 2023-07-08 20:05:00 170.2 cm [facility] Body weight 2023-07-08 20:05:00 114.216 kg [facility] BMI 2023-07-08 20:05:00 39.44 kg/m2 [facility] Oxygen saturation in Arterial blood by Pulse oximetry 2023-07-08 20:05:00 96 /min [facility] Systolic blood pressure 2023-06-22 16:15:00 133 mm[Hg] [facility] Diastolic blood pressure 2023-06-22 16:15:00 50 mm[Hg] [facility] Heart rate 2023-06-22 16:15:00 83 /min [facility] Oxygen saturation in Arterial blood by Pulse oximetry 2023-06-22 16:15:00 98 /min [facility] Respiratory rate 2023-06-22 16:10:00 17 /min [facility] Body height 2023-06-22 16:10:00 170.2 cm [facility] Body weight 2023-06-22 16:10:00 114.125 kg [facility] BMI 2023-06-22 16:10:00 39.41 kg/m2 [facility] Systolic blood pressure 2023-06-09 15:46:00 174 mm[Hg] [facility] Diastolic blood pressure 2023-06-09 15:46:00 69 mm[Hg] [facility] Heart rate 2023-06-09 15:46:00 63 /min [facility] Body height 2023-06-09 15:46:00 170.2 cm [facility] Body weight 2023-06-09 15:46:00 112.447 kg [facility] BMI 2023-06-09 15:46:00 38.83 kg/m2 [facility] Oxygen saturation in Arterial blood by Pulse oximetry 2023-06-09 15:46:00 96 /min [facility] Systolic blood pressure 2023-06-06 17:35:00 134 mm[Hg] [facility] Diastolic blood pressure 2023-06-06 17:35:00 63 mm[Hg] [facility] Heart rate 2023-06-06 17:35:00 68 /min [facility] Body temperature 2023-06-06 17:35:00 36.39 Sherry [facility] Respiratory rate 2023-06-06 17:35:00 16 /min [facility] Body height 2023-06-06 17:35:00 170.2 cm [facility] Body weight 2023-06-06 17:35:00 115.44 kg [facility] BMI 2023-06-06 17:35:00 39.86 kg/m2 [facility] Oxygen saturation in Arterial blood by Pulse oximetry 2023-06-06 17:35:00 94 /min [facility] Systolic blood pressure 2023-05-23 17:01:00 137 mm[Hg] [facility] Diastolic blood pressure 2023-05-23 17:01:00 50 mm[Hg] [facility] Body height 2023-05-23 17:01:00 170.2 cm [facility] Body weight 2023-05-23 17:01:00 113.853 kg [facility] BMI 2023-05-23 17:01:00 39.31 kg/m2 [facility] Systolic blood pressure 2023-05-05 19:45:00 146 mm[Hg] [facility] Diastolic blood pressure 2023-05-05 19:45:00 53 mm[Hg] [facility] Heart rate 2023-05-05 19:45:00 68 /min [facility] Body temperature 2023-05-05 19:45:00 36.72 Sherry [facility] Respiratory rate 2023-05-05 19:45:00 16 /min [facility] Body height 2023-05-05 19:45:00 170.2 cm [facility] Body weight 2023-05-05 19:45:00 116.574 kg [facility] BMI 2023-05-05 19:45:00 40.25 kg/m2 [facility] Oxygen saturation in Arterial blood by Pulse oximetry 2023-05-05 19:45:00 97 /min [facility] Systolic blood pressure 2023-05-05 15:30:00 114 mm[Hg] [facility] Diastolic blood pressure 2023-05-05 15:30:00 65 mm[Hg] [facility] Heart rate 2023-05-05 15:30:00 71 /min [facility] Body temperature 2023-05-05 15:30:00 35.94 Sherry [facility] Body height 2023-05-05 15:30:00 170.2 cm [facility] Body weight 2023-05-05 15:30:00 116.711 kg [facility] BMI 2023-05-05 15:30:00 40.30 kg/m2 [facility] Oxygen saturation in Arterial blood by Pulse oximetry 2023-05-05 15:30:00 96 /min [facility] Systolic blood pressure 2023-04-27 16:26:00 148 mm[Hg] [facility] Diastolic blood pressure 2023-04-27 16:26:00 61 mm[Hg] [facility] Heart rate 2023-04-27 16:25:00 59 /min [facility] Body temperature 2023-04-27 16:25:00 34.67 Sherry [facility] Respiratory rate 2023-04-27 16:25:00 20 /min [facility] Body height 2023-04-27 16:25:00 170.2 cm [facility] Body weight 2023-04-27 16:25:00 113.354 kg [facility] BMI 2023-04-27 16:25:00 39.14 kg/m2 [facility] Oxygen saturation in Arterial blood by Pulse oximetry 2023-04-27 16:25:00 98 /min [facility] Systolic blood pressure 2023-04-19 16:37:00 116 mm[Hg] [facility] Diastolic blood pressure 2023-04-19 16:37:00 60 mm[Hg] [facility] Heart rate 2023-04-19 16:37:00 52 /min [facility] Body temperature 2023-04-19 16:37:00 36.39 Sherry [facility] Respiratory rate 2023-04-19 16:37:00 18 /min [facility] Oxygen saturation in Arterial blood by Pulse oximetry 2023-04-19 16:37:00 95 /min [facility] Body weight 2023-04-18 09:46:00 108.5 kg [facility] BMI 2023-04-18 09:46:00 37.46 kg/m2 [facility] Body height 2023-04-13 02:12:00 170.2 cm [facility] Heart rate 2023-03-28 15:29:00 65 /min [facility] Respiratory rate 2023-03-28 15:29:00 22 /min [facility] Oxygen saturation in Arterial blood by Pulse oximetry 2023-03-28 15:29:00 96 /min [facility] Systolic blood pressure 2023-03-28 13:10:00 155 mm[Hg] [facility] Diastolic blood pressure 2023-03-28 13:10:00 63 mm[Hg] [facility] Body temperature 2023-03-28 13:10:00 36.22 Sherry [facility] Body weight 2023-03-24 08:16:00 119.438 kg bedscale used - patient unable to stand on scale [facility] BMI 2023-03-24 08:16:00 41.24 kg/m2 [facility] Body height 2023-03-21 14:07:00 170.2 cm [facility] Systolic blood pressure 2023-03-25 13:32:00 157 mm[Hg] [facility] Diastolic blood pressure 2023-03-25 13:32:00 47 mm[Hg] [facility] Heart rate 2023-03-25 12:35:00 64 /min [facility] Body temperature 2023-03-25 12:35:00 36.39 Sherry [facility] Respiratory rate 2023-03-25 12:35:00 20 /min [facility] Oxygen saturation in Arterial blood by Pulse oximetry 2023-03-25 12:35:00 95 /min [facility] Body weight 2023-03-24 08:16:00 119.438 kg bedscale used - patient unable to stand on scale [facility] BMI 2023-03-24 08:16:00 41.24 kg/m2 [facility] Body height 2023-03-21 14:07:00 170.2 cm [facility] Systolic blood pressure 2023-03-21 14:07:00 153 mm[Hg] [facility] Diastolic blood pressure 2023-03-21 14:07:00 76 mm[Hg] [facility] Heart rate 2023-03-21 14:07:00 64 /min [facility] Body temperature 2023-03-21 14:07:00 36.5 Sherry [facility] Respiratory rate 2023-03-21 14:07:00 18 /min [facility] Body height 2023-03-21 14:07:00 170.2 cm [facility] Body weight 2023-03-21 14:07:00 123.2 kg [facility] BMI 2023-03-21 14:07:00 42.54 kg/m2 [facility] Oxygen saturation in Arterial blood by Pulse oximetry 2023-03-21 14:07:00 100 /min [facility] Systolic blood pressure 2023-03-10 21:20:00 150 mm[Hg] [facility] Diastolic blood pressure 2023-03-10 21:20:00 56 mm[Hg] [facility] Heart rate 2023-03-10 21:20:00 66 /min [facility] Body temperature 2023-03-10 21:17:00 37 Sherry [facility] Respiratory rate 2023-03-10 21:17:00 18 /min [facility] Body height 2023-03-10 21:17:00 170.2 cm [facility] Body weight 2023-03-10 21:17:00 117.935 kg [facility] BMI 2023-03-10 21:17:00 40.72 kg/m2 [facility] Oxygen saturation in Arterial blood by Pulse oximetry 2023-03-10 21:17:00 96 /min [facility] Systolic blood pressure 2023-03-08 21:20:00 167 mm[Hg] [facility] Diastolic blood pressure 2023-03-08 21:20:00 77 mm[Hg] [facility] Heart rate 2023-03-08 21:06:00 74 /min [facility] Body temperature 2023-03-08 21:06:00 36.17 Sherry [facility] Body height 2023-03-08 21:06:00 170.2 cm [facility] Body weight 2023-03-08 21:06:00 118.071 kg [facility] BMI 2023-03-08 21:06:00 40.77 kg/m2 [facility] Oxygen saturation in Arterial blood by Pulse oximetry 2023-03-08 21:06:00 97 /min [facility] Systolic blood pressure 2023-02-21 20:39:00 157 mm[Hg] [facility] Diastolic blood pressure 2023-02-21 20:39:00 59 mm[Hg] [facility] Heart rate 2023-02-21 20:39:00 80 /min [facility] Body temperature 2023-02-21 20:39:00 37.44 Sherry [facility] Respiratory rate 2023-02-21 20:39:00 18 /min [facility] Oxygen saturation in Arterial blood by Pulse oximetry 2023-02-21 20:39:00 93 /min [facility] Body weight 2023-02-21 08:00:00 118.978 kg [facility] BMI 2023-02-21 08:00:00 41.08 kg/m2 [facility] Body height 2023-02-21 01:34:00 170.2 cm [facility] Systolic blood pressure 2023-02-08 15:56:00 145 mm[Hg] [facility] Diastolic blood pressure 2023-02-08 15:56:00 70 mm[Hg] [facility] Heart rate 2023-02-08 15:56:00 64 /min [facility] Respiratory rate 2023-02-08 15:56:00 20 /min [facility] Body height 2023-02-08 15:56:00 170.2 cm [facility] Body weight 2023-02-08 15:56:00 118.842 kg [facility] BMI 2023-02-08 15:56:00 41.04 kg/m2 [facility] Oxygen saturation in Arterial blood by Pulse oximetry 2023-02-08 15:56:00 98 /min [facility] Systolic blood pressure 2022-12-24 16:07:00 127 mm[Hg] [facility] Diastolic blood pressure 2022-12-24 16:07:00 47 mm[Hg] [facility] Heart rate 2022-12-24 16:07:00 72 /min [facility] Body temperature 2022-12-24 16:07:00 36.11 Sherry [facility] Respiratory rate 2022-12-24 16:07:00 18 /min [facility] Body height 2022-12-24 16:07:00 170.2 cm [facility] Body weight 2022-12-24 16:07:00 109.408 kg [facility] BMI 2022-12-24 16:07:00 37.78 kg/m2 [facility] Oxygen saturation in Arterial blood by Pulse oximetry 2022-12-24 16:07:00 98 /min [facility] Systolic blood pressure 2022-12-21 15:39:00 113 mm[Hg] [facility] Diastolic blood pressure 2022-12-21 15:39:00 51 mm[Hg] [facility] Heart rate 2022-12-21 15:39:00 73 /min [facility] Body height 2022-12-21 15:39:00 170.2 cm [facility] Body weight 2022-12-21 15:39:00 108.909 kg [facility] BMI 2022-12-21 15:39:00 37.60 kg/m2 [facility] Systolic blood pressure 2022-12-09 14:08:00 116 mm[Hg] [facility] Diastolic blood pressure 2022-12-09 14:08:00 75 mm[Hg] [facility] Heart rate 2022-12-09 14:08:00 74 /min [facility] Body height 2022-12-09 14:08:00 170.2 cm [facility] Body weight 2022-12-09 14:08:00 104.599 kg [facility] BMI 2022-12-09 14:08:00 36.12 kg/m2 [facility] Oxygen saturation in Arterial blood by Pulse oximetry 2022-12-09 14:08:00 100 /min [facility] Systolic blood pressure 2022-09-28 15:54:00 135 mm[Hg] [facility] Diastolic blood pressure 2022-09-28 15:54:00 70 mm[Hg] [facility] Heart rate 2022-09-28 15:54:00 65 /min [facility] Body temperature 2022-09-28 15:54:00 36.94 Sherry [facility] Respiratory rate 2022-09-28 15:54:00 20 /min [facility] Body height 2022-09-28 15:54:00 170.2 cm [facility] Body weight 2022-09-28 15:54:00 116.847 kg [facility] BMI 2022-09-28 15:54:00 40.35 kg/m2 [facility] Oxygen saturation in Arterial blood by Pulse oximetry 2022-09-28 15:54:00 97 /min [facility] Systolic blood pressure 2022-09-07 20:18:00 146 mm[Hg] [facility] Diastolic blood pressure 2022-09-07 20:18:00 56 mm[Hg] [facility] Heart rate 2022-09-07 20:18:00 60 /min [facility] Oxygen saturation in Arterial blood by Pulse oximetry 2022-09-07 20:18:00 96 /min [facility] Respiratory rate 2022-09-07 20:14:00 20 /min [facility] Body height 2022-09-07 20:14:00 170.2 cm [facility] Body weight 2022-09-07 20:14:00 119.296 kg [facility] BMI 2022-09-07 20:14:00 41.19 kg/m2 [facility] Systolic blood pressure 2022-08-31 16:37:00 135 mm[Hg] [facility] Diastolic blood pressure 2022-08-31 16:37:00 50 mm[Hg] [facility] Heart rate 2022-08-31 16:37:00 61 /min [facility] Body temperature 2022-08-31 16:37:00 36.78 Sherry [facility] Body height 2022-08-31 16:37:00 170.2 cm [facility] Body weight 2022-08-31 16:37:00 118.389 kg [facility] BMI 2022-08-31 16:37:00 40.88 kg/m2 [facility] Oxygen saturation in Arterial blood by Pulse oximetry 2022-08-31 16:37:00 96 /min [facility] Body temperature 2022-08-30 19:10:00 36.17 Sherry [facility] Body height 2022-08-30 19:10:00 170.2 cm [facility] Body weight 2022-08-30 19:10:00 119.205 kg [facility] BMI 2022-08-30 19:10:00 41.16 kg/m2 [facility] Systolic blood pressure 2022-08-13 17:33:00 140 mm[Hg] [facility] Diastolic blood pressure 2022-08-13 17:33:00 84 mm[Hg] [facility] Heart rate 2022-08-13 17:33:00 76 /min [facility] Oxygen saturation in Arterial blood by Pulse oximetry 2022-08-13 17:33:00 98 /min [facility] Respiratory rate 2022-08-13 17:30:00 20 /min [facility] Body height 2022-08-13 17:30:00 170.2 cm [facility] Body weight 2022-08-13 17:30:00 117.119 kg [facility] BMI 2022-08-13 17:30:00 40.44 kg/m2 [facility] Systolic blood pressure 2022-07-30 17:33:00 175 mm[Hg] [facility] Diastolic blood pressure 2022-07-30 17:33:00 66 mm[Hg] [facility] Heart rate 2022-07-30 17:32:00 81 /min [facility] Body temperature 2022-07-30 17:32:00 36.5 Sherry [facility] Body weight 2022-07-30 17:32:00 115.214 kg [facility] BMI 2022-07-30 17:32:00 39.78 kg/m2 [facility] Oxygen saturation in Arterial blood by Pulse oximetry 2022-07-30 17:32:00 100 /min [facility] Systolic blood pressure 2022-07-20 20:28:00 118 mm[Hg] [facility] Diastolic blood pressure 2022-07-20 20:28:00 60 mm[Hg] [facility] Heart rate 2022-07-20 20:28:00 52 /min [facility] Respiratory rate 2022-07-20 20:28:00 17 /min [facility] Body weight 2022-07-20 20:28:00 109.487 kg Per patient [facility] BMI 2022-07-20 20:28:00 37.80 kg/m2 [facility] Oxygen saturation in Arterial blood by Pulse oximetry 2022-07-20 20:28:00 91 /min [facility] Systolic blood pressure 2022-07-15 17:24:00 134 mm[Hg] [facility] Diastolic blood pressure 2022-07-15 17:24:00 56 mm[Hg] [facility] Heart rate 2022-07-15 17:24:00 63 /min [facility] Body temperature 2022-07-15 17:24:00 36.61 Sherry [facility] Body height 2022-07-15 17:24:00 170.2 cm [facility] Body weight 2022-07-15 17:24:00 111.585 kg [facility] BMI 2022-07-15 17:24:00 38.53 kg/m2 [facility] Oxygen saturation in Arterial blood by Pulse oximetry 2022-07-15 17:24:00 97 /min [facility] Systolic blood pressure 2022-07-05 18:00:00 154 mm[Hg] [facility] Diastolic blood pressure 2022-07-05 18:00:00 43 mm[Hg] [facility] Heart rate 2022-07-05 18:00:00 87 /min [facility] Body temperature 2022-07-05 18:00:00 37 Sherry [facility] Respiratory rate 2022-07-05 18:00:00 21 /min [facility] Oxygen saturation in Arterial blood by Pulse oximetry 2022-07-05 18:00:00 96 /min [facility] Body weight 2022-06-30 14:33:00 114.488 kg [facility] BMI 2022-06-30 14:33:00 39.53 kg/m2 [facility] Body height 2022-06-26 23:36:00 170.2 cm [facility] Systolic blood pressure 2022-06-08 16:55:00 141 mm[Hg] [facility] Diastolic blood pressure 2022-06-08 16:55:00 63 mm[Hg] [facility] Heart rate 2022-06-08 16:43:00 83 /min [facility] Body weight 2022-06-08 16:43:00 118.389 kg [facility] BMI 2022-06-08 16:43:00 40.88 kg/m2 [facility] Oxygen saturation in Arterial blood by Pulse oximetry 2022-06-08 16:43:00 96 /min [facility] Body temperature 2022-06-01 17:47:00 36.44 Sherry [facility] Body height 2022-06-01 17:47:00 170.2 cm [facility] Body weight 2022-06-01 17:47:00 116.574 kg [facility] BMI 2022-06-01 17:47:00 40.25 kg/m2 [facility] Systolic blood pressure 2022-05-10 19:38:00 107 mm[Hg] [facility] Diastolic blood pressure 2022-05-10 19:38:00 64 mm[Hg] [facility] Heart rate 2022-05-10 19:38:00 86 /min [facility] Body temperature 2022-05-10 19:38:00 37.06 Sherry [facility] Body height 2022-05-10 19:38:00 170.2 cm [facility] Body weight 2022-05-10 19:38:00 115.214 kg [facility] BMI 2022-05-10 19:38:00 39.78 kg/m2 [facility] Oxygen saturation in Arterial blood by Pulse oximetry 2022-05-10 19:38:00 97 /min [facility] Systolic blood pressure 2022-05-10 16:53:00 124 mm[Hg] [facility] Diastolic blood pressure 2022-05-10 16:53:00 60 mm[Hg] [facility] Heart rate 2022-05-10 16:53:00 91 /min [facility] Body weight 2022-05-10 16:49:00 115.486 kg [facility] BMI 2022-05-10 16:49:00 39.88 kg/m2 [facility] Oxygen saturation in Arterial blood by Pulse oximetry 2022-05-10 16:49:00 98 /min [facility] Systolic blood pressure 2022-04-29 15:55:00 146 mm[Hg] [facility] Diastolic blood pressure 2022-04-29 15:55:00 68 mm[Hg] [facility] Heart rate 2022-04-29 15:53:00 91 /min [facility] Body temperature 2022-04-29 15:53:00 36.78 Sherry [facility] Body weight 2022-04-29 15:53:00 116.121 kg [facility] BMI 2022-04-29 15:53:00 40.10 kg/m2 [facility] Oxygen saturation in Arterial blood by Pulse oximetry 2022-04-29 15:53:00 98 /min [facility] Systolic blood pressure 2022-04-22 14:08:00 127 mm[Hg] [facility] Diastolic blood pressure 2022-04-22 14:08:00 71 mm[Hg] [facility] Heart rate 2022-04-22 14:08:00 82 /min [facility] Body temperature 2022-04-22 14:08:00 36.56 Sherry [facility] Body height 2022-04-22 14:08:00 170.2 cm [facility] Body weight 2022-04-22 14:08:00 118.661 kg [facility] BMI 2022-04-22 14:08:00 40.97 kg/m2 [facility] Oxygen saturation in Arterial blood by Pulse oximetry 2022-04-22 14:08:00 97 /min [facility] Systolic blood pressure 2022-04-07 16:33:00 139 mm[Hg] [facility] Diastolic blood pressure 2022-04-07 16:33:00 63 mm[Hg] [facility] Heart rate 2022-04-07 16:33:00 86 /min [facility] Body temperature 2022-04-07 16:33:00 36.83 Sherry [facility] Body weight 2022-04-07 16:33:00 114.125 kg [facility] BMI 2022-04-07 16:33:00 39.41 kg/m2 [facility] Oxygen saturation in Arterial blood by Pulse oximetry 2022-04-07 16:33:00 96 /min [facility] Systolic blood pressure 2022-03-29 18:48:00 105 mm[Hg] [facility] Diastolic blood pressure 2022-03-29 18:48:00 52 mm[Hg] [facility] Heart rate 2022-03-29 18:48:00 96 /min [facility] Body height 2022-03-29 18:48:00 170.2 cm [facility] Body weight 2022-03-29 18:48:00 114.669 kg [facility] BMI 2022-03-29 18:48:00 39.59 kg/m2 [facility] Oxygen saturation in Arterial blood by Pulse oximetry 2022-03-29 18:48:00 92 /min [facility] Systolic blood pressure 2022-03-25 16:22:00 146 mm[Hg] [facility] Diastolic blood pressure 2022-03-25 16:22:00 77 mm[Hg] [facility] Heart rate 2022-03-25 16:21:00 84 /min [facility] Body temperature 2022-03-25 16:21:00 36.89 Sherry [facility] Body height 2022-03-25 16:21:00 170.2 cm [facility] Body weight 2022-03-25 16:21:00 111.766 kg [facility] BMI 2022-03-25 16:21:00 38.59 kg/m2 [facility] Oxygen saturation in Arterial blood by Pulse oximetry 2022-03-25 16:21:00 96 /min [facility] Systolic blood pressure 2022-03-16 15:57:00 120 mm[Hg] [facility] Diastolic blood pressure 2022-03-16 15:57:00 70 mm[Hg] [facility] Heart rate 2022-03-16 15:57:00 98 /min [facility] Body temperature 2022-03-16 15:57:00 36.33 Sherry [facility] Respiratory rate 2022-03-16 15:57:00 17 /min [facility] Body height 2022-03-16 15:57:00 170.2 cm [facility] Body weight 2022-03-16 15:57:00 110.814 kg [facility] BMI 2022-03-16 15:57:00 38.26 kg/m2 [facility] Oxygen saturation in Arterial blood by Pulse oximetry 2022-03-16 15:57:00 98 /min [facility] Systolic blood pressure 2022-02-25 13:06:00 133 mm[Hg] [facility] Diastolic blood pressure 2022-02-25 13:06:00 57 mm[Hg] [facility] Heart rate 2022-02-25 13:06:00 88 /min [facility] Body height 2022-02-25 13:06:00 170.2 cm [facility] Body weight 2022-02-25 13:06:00 111.131 kg [facility] BMI 2022-02-25 13:06:00 38.37 kg/m2 [facility] Oxygen saturation in Arterial blood by Pulse oximetry 2022-02-25 13:06:00 96 /min [facility] BP Diastolic 2021-12-10 00:00:00 78 mm[Hg] [facility] Height 2021-12-10 00:00:00 67 [in_i] [facility] BMI (Body Mass Index) 2021-12-10 00:00:00 41.3 kg/m2 [facility] BP Systolic 2021-12-10 00:00:00 140 mm[Hg] [facility] Body Weight 2021-12-10 00:00:00 4224 [oz_av] [facility] BP Diastolic 2021-08-31 00:00:00 70 mm[Hg] [facility] Height 2021-08-31 00:00:00 67 [in_i] [facility] BMI (Body Mass Index) 2021-08-31 00:00:00 38.2 kg/m2 [facility] BP Systolic 2021-08-31 00:00:00 116 mm[Hg] [facility] Body Weight 2021-08-31 00:00:00 3904 [oz_av] [facility] BP Diastolic 2021-07-30 00:00:00 92 mm[Hg] [facility] Height 2021-07-30 00:00:00 67 [in_i] [facility] BP Systolic 2021-07-30 00:00:00 164 mm[Hg] [facility] BP Diastolic 2021-05-18 00:00:00 72 mm[Hg] [facility] Height 2021-05-18 00:00:00 67 [in_i] [facility] BMI (Body Mass Index) 2021-05-18 00:00:00 39.8 kg/m2 [facility] BP Systolic 2021-05-18 00:00:00 124 mm[Hg] [facility] Body Weight 2021-05-18 00:00:00 4064 [oz_av] [facility] BP Diastolic 2021-04-13 00:00:00 64 mm[Hg] [facility] Height 2021-04-13 00:00:00 67 [in_i] [facility] BMI (Body Mass Index) 2021-04-13 00:00:00 39.5 kg/m2 [facility] BP Systolic 2021-04-13 00:00:00 138 mm[Hg] [facility] Body Weight 2021-04-13 00:00:00 4032 [oz_av] [facility] BP Diastolic 2021-02-17 00:00:00 64 mm[Hg] [facility] Height 2021-02-17 00:00:00 67 [in_i] [facility] BMI (Body Mass Index) 2021-02-17 00:00:00 37.7 kg/m2 [facility] BP Systolic 2021-02-17 00:00:00 122 mm[Hg] [facility] Body Weight 2021-02-17 00:00:00 3856 [oz_av] [facility] BP Diastolic 2021-01-13 00:00:00 64 mm[Hg] [facility] Height 2021-01-13 00:00:00 67 [in_i] [facility] BMI (Body Mass Index) 2021-01-13 00:00:00 39.2 kg/m2 [facility] BP Systolic 2021-01-13 00:00:00 130 mm[Hg] [facility] Body Weight 2021-01-13 00:00:00 4000 [oz_av] [facility] BP Diastolic 2020-11-27 00:00:00 64 mm[Hg] [facility] Height 2020-11-27 00:00:00 67 [in_i] [facility] BMI (Body Mass Index) 2020-11-27 00:00:00 38.8 kg/m2 [facility] BP Systolic 2020-11-27 00:00:00 132 mm[Hg] [facility] Body Weight 2020-11-27 00:00:00 3968 [oz_av] [facility] BP Diastolic 2020-10-30 00:00:00 64 mm[Hg] [facility] Height 2020-10-30 00:00:00 67 [in_i] [facility] BP Systolic 2020-10-30 00:00:00 118 mm[Hg] [facility] BP Diastolic 2020-10-09 00:00:00 72 mm[Hg] [facility] Height 2020-10-09 00:00:00 67 [in_i] [facility] BMI (Body Mass Index) 2020-10-09 00:00:00 36 kg/m2 [facility] BP Systolic 2020-10-09 00:00:00 126 mm[Hg] [facility] Body Weight 2020-10-09 00:00:00 3680 [oz_av] [facility] Height 2020-09-09 00:00:00 67 [in_i] [facility] BP Diastolic 2020-08-07 00:00:00 62 mm[Hg] [facility] Height 2020-08-07 00:00:00 67 [in_i] [facility] BMI (Body Mass Index) 2020-08-07 00:00:00 36.3 kg/m2 [facility] BP Systolic 2020-08-07 00:00:00 114 mm[Hg] [facility] Body Weight 2020-08-07 00:00:00 3712 [oz_av] [facility] BP Diastolic 2020-07-10 00:00:00 74 mm[Hg] [facility] Height 2020-07-10 00:00:00 67 [in_i] [facility] BMI (Body Mass Index) 2020-07-10 00:00:00 38.8 kg/m2 [facility] BP Systolic 2020-07-10 00:00:00 124 mm[Hg] [facility] Body Weight 2020-07-10 00:00:00 3968 [oz_av] [facility] Procedures Procedure Date / Time Performed Performing Clinician Source PHYSICIAN ORDERS 2024-09-24 15:46:03 Doctor Valente signed, [facility] DME/SUPPLY JUSTIFICATION 2024-08-21 16:08:32 Doc gloria Unassigned, [facility] DME/SUPPLY JUSTIFICATION 2024-08-21 16:08:26 Hollis castro Unassigned, [facility] LOWER EXTREMITY ARTERIAL DUPLEX BILATERAL - BY VASCULAR LAB 2024-07-17 17:48:00 Jerome Soares [facility] CAROTID DUPLEX BILATERAL - BY VASCULAR LAB 2024-07-17 16:40:00 Jerome Soares [facility] SCANNED LAB RESULTS 2024-06-19 20:47:02 Doctor Brock farias, [facility] PHYSICIAN ORDERS 2024-05-23 21:19:25 Doctor Valente signed, [facility] XR KNEE 3 VW LEFT 2024-04-17 15:22:[address] [facility] POCT HEMOGLOBIN A1C TEST 2024-04-03 00:00:00 Elsi Christian [facility] EKG-12 LEAD 2024-01-17 00:29:15 Shahzad Pro [facility] LIPASE 2024-01-16 22:32:00 Shahzad Pro [facility] TROPONIN I 2024-01-16 22:32:00 Shahzad Pro [facility] COMP. METABOLIC PANEL (14548) 2024-01-16 22:32:00 Shahzad Pro [facility] CBC WITH DIFF 2024-01-16 22:32:00 Shahzad Pro [facility] XR CHEST 2 VW 2024-01-16 21:59:00 Shahzad Pro [facility] TDAP VACCINE, >11 YRS, IM 2023-11-11 16:49:17 Andrea Israel [facility] POCT HEMOGLOBIN A1C TEST 2023-11-11 00:00:00 Lindy, Orestes perez [facility] LACTIC ACID WHOLE BLOOD 2023-10-30 21:36:00 Daniella Mao [facility] BASIC METABOLIC PANEL (NA, K, CL, CO2, GLUCOSE, BUN, CREATININE, CA) 2023-10-30 21:25:00 Daniella Hawk [facility] CBC WITH DIFF 2023-10-30 21:25:00 Daniella Hawk [facility] DUPLEX VENOUS LEG RIGHT - BY VASCULAR LAB 2023-10-04 20:11:58 Steph Nur [facility] HEALTH - OTHER 2023-09-06 06:01:00 Doctor Brock castrosijulio, [facility] HEALTH - OTHER 2023-08-08 06:01:00 Doctor U matthewsijulio, Wells [facility] DME/SUPPLY JUSTIFICATION 2023-07-25 06:01:00 Doc tor Unassigned, Wells [facility] HEALTH - OTHER 2023-06-29 06:01:00 Doctor U matthewsijulio, Wells [facility] MAGNESIUM 2023-06-22 16:58:00 Jamshid Early U [facility] COMP. METABOLIC PANEL (52415) 2023-06-22 16:58:00 Jamshid Early [facility] CBC WITH DIFF 2023-06-22 16:58:00 Jamshid Early [facility] N-TERMINAL PRO-BNP 2023-06-22 16:58:00 Jamshid Early [facility] HEALTH - OTHER 2023-06-21 06:01:00 Doctor Brock farias, [facility] XR ANKLE 3+ VW RIGHT 2023-06-06 20:24:31 Nehal Titus [facility] POCT HEMOGLOBIN A1C TEST 2023-05-23 17:05:00 HarrietErick kuo [facility] HOME HEALTH 485 2023-05-20 06:01:00 Doctor Unass igned, [facility] PHYSICIAN ORDERS 2023-05-05 05:01:00 Doctor Unas signed, Wells [facility] POCT GLUCOSE (AUTOMATED) 2023-04-19 16:41:00 Jared Alvarenga [facility] POCT GLUCOSE (AUTOMATED) 2023-04-19 13:19:00 Jared Alvarenga [facility] BASIC METABOLIC PANEL (NA, K, CL, CO2, GLUCOSE, BUN, CREATININE, CA) 2023-04-19 09:36:00 Leila Marmolejo [facility] CBC WITH DIFF 2023-04-19 09:36:00 Leila Marmolejo [facility] POCT GLUCOSE (AUTOMATED) 2023-04-19 04:44:00 Jared Alvarenga [facility] POCT GLUCOSE (AUTOMATED) 2023-04-19 01:22:00 Jared Alvarenga [facility] POCT GLUCOSE (AUTOMATED) 2023-04-18 21:33:00 Jared Alvarenga [facility] XR CHEST 1 VW 2023-04-18 17:25:00 Mumtaz San [facility] POCT GLUCOSE (AUTOMATED) 2023-04-18 16:57:00 Jared Alvarenga [facility] POCT GLUCOSE (AUTOMATED) 2023-04-18 13:05:00 Jared Alvarenga [facility] BASIC METABOLIC PANEL (NA, K, CL, CO2, GLUCOSE, BUN, CREATININE, CA) 2023-04-18 09:26:00 Mumtaz San [facility] CBC WITHOUT DIFF 2023-04-18 09:26:00 Mumtaz San [facility] POCT GLUCOSE (AUTOMATED) 2023-04-18 01:43:00 Jared Alvarenga [facility] POCT GLUCOSE (AUTOMATED) 2023-04-17 21:43:00 Jared Alvarenga [facility] BASIC METABOLIC PANEL (NA, K, CL, CO2, GLUCOSE, BUN, CREATININE, CA) 2023-04-17 18:18:00 Mumtaz San [facility] CBC WITH DIFF 2023-04-17 18:18:00 Mumtaz San [facility] N-TERMINAL PRO-BNP 2023-04-17 18:18:00 Jamshid Early [facility] POCT GLUCOSE (AUTOMATED) 2023-04-17 16:43:[address] [facility] VANCOMYCIN TROUGH 2023-04-17 14:40:00 Bladimir Ferraro [facility] POCT GLUCOSE (AUTOMATED) 2023-04-17 12:41:00 [facility] POCT GLUCOSE (AUTOMATED) 2023-04-17 01:12:00 [facility] 2023-04-16 21:24:00 [facility]ATED) 2023-04-16 17:36:00 [facility]ATED) 2023-04-16 16:51:00 [facility]ATED) 2023-04-16 12:51:[address] [facility] POCT GLUCOSE (AUTOMATED) 2023-04-16 12:50:00 [facility] 2023-04-16 10:40:00 Bladimir Ferraro [facility] TROPONIN I 2023-04-16 10:40:00 Bladimir Ferraro [facility] BASIC METABOLIC PANEL (NA, K, CL, CO2, GLUCOSE, BUN, CREATININE, CA) 2023-04-16 10:40:00 Bladimir Ferraro [facility] N-TERMINAL PRO-BNP 2023-04-16 10:40:00 Bladimir Ferraro [facility] POCT GLUCOSE (AUTOMATED) 2023-04-16 01:45:00 [facility]ATED) 2023-04-15 21:37:[address] [facility] VANCOMYCIN TROUGH 2023-04-15 17:05:00 Jaleel Boyle [facility] POCT GLUCOSE (AUTOMATED) 2023-04-15 16:45:[address] [facility] POCT GLUCOSE (AUTOMATED) 2023-04-15 12:48:[address] [facility] MAGNESIUM 2023-04-15 09:35:00 [facility]23-04-15 09:35:00 [facility] MET[facility]OLIC PANEL (NA, K, CL, CO2, GLUCOSE, BUN, CREATININE, CA) 2023-04-15 09:35:00 Ronan [facility] CBC WITH DIFF 2023-04-15 09:35:00 Bladimir Ferraro [facility] N-TERMINAL PRO-BNP 2023-04-15 09:35:00 Ronan [facility] POCT GLUCOSE (AUTOMATED) 2023-04-15 01:48:[address] [facility] POCT GLUCOSE (AUTOMATED) 2023-04-14 21:38:[address] [facility] POCT GLUCOSE (AUTOMATED) 2023-04-14 16:52:[address] [facility] POCT GLUCOSE (AUTOMATED) 2023-04-14 12:57:[address] [facility] MAGNESIUM 2023-04-14 10:22:00 Bladimir Ferraro [facility] TROPONIN I 2023-04-14 10:22:00 Bladimir eFrraro [facility] BASIC METABOLIC PANEL (NA, K, CL, CO2, GLUCOSE, BUN, CREATININE, CA) 2023-04-14 10:22:00 Ronan [facility] CBC WITH DIFF 2023-04-14 10:22:00 Bladimir Ferraro [facility] N-TERMINAL PRO-BNP 2023-04-14 10:22:00 Ronan [facility] POCT GLUCOSE (AUTOMATED) 2023-04-14 02:28:00 Jared Alvarenga [facility] POCT GLUCOSE (AUTOMATED) 2023-04-13 22:40:00 [facility] POCT GLUCOSE (AUTOMATED) 2023-04-13 16:56:00 [facility] POCT GLUCOSE (AUTOMATED) 2023-04-13 13:09:00 [facility] DENNISE AURIS SURVEILLANCE BY PCR (INFECTION CONTROL PURPOSES) 2023-04-13 04:20:00 Sam Meredith [facility] CT HEAD WO CONTRAST 2023-04-12 23:46:00 Tootie Chau [facility] HB ECG ROUTINE & RHYTHM STRIP 2023-04-12 22:46:51 Tootie Chau [facility] XR CHEST 1 VW 2023-04-12 22:32:34 Tootie Chau [facility] BLOOD CULTURE SCREEN 2023-04-12 21:44:00 Tootie Chau [facility] BLOOD CULTURE SCREEN 2023-04-12 21:40:00 Tootie Chau [facility] URINALYSIS 2023-04-12 21:40:00 Tootie Chau [facility] URINE CULTURE 2023-04-12 21:40:00 Tootie Chau [facility] AC PANEL 20 + LACTIC ACID 2023-04-12 21:16:00 Tootie Chau [facility] TROPONIN I 2023-04-12 21:00:00 Tootie Chau [facility] COMP. METABOLIC PANEL (85742) 2023-04-12 21:00:00 Tootie Chau [facility] CBC WITH DIFF 2023-04-12 21:00:00 Tootie Chau [facility] N-TERMINAL PRO-BNP 2023-04-12 21:00:00 Tootie Chau [facility] HOME HEALTH - OTHER 2023-04-04 05:01:00 Doctor Brock farias, Wells [facility] POCT GLUCOSE (AUTOMATED) 2023-03-28 12:30:00 Fany [facility] POCT GLUCOSE (AUTOMATED) 2023-03-28 12:30:00 Elisa Soares [facility] PHOSPHORUS 2023-03-28 08:50:00 Dariana Mcfarlane [facility] MAGNESIUM 2023-03-28 08:50:00 Denys [facility] BASIC METABOLIC PANEL (NA, K, CL, CO2, GLUCOSE, BUN, CREATININE, CA) 2023-03-28 08:50:00 Denys [facility] CBC WITH DIFF 2023-03-28 08:50:00 Denys [facility] PHOSPHORUS 2023-03-28 08:50:00 Denys [facility] MAGNESIUM 2023-03-28 08:50:00 Denys [facility] BASIC METABOLIC PANEL (NA, K, CL, CO2, GLUCOSE, BUN, CREATININE, CA) 2023-03-28 08:50:00 Denys [facility] CBC WITH DIFF 2023-03-28 08:50:00 Denys [facility] POCT GLUCOSE (AUTOMATED) 2023-03-28 01:06:00 Fany [facility] POCT GLUCOSE (AUTOMATED) 2023-03-28 01:06:00 Fany [facility] POCT GLUCOSE (AUTOMATED) 2023-03-27 21:38:00 Fany [facility] POCT GLUCOSE (AUTOMATED) 2023-03-27 21:38:00 Fany [facility] POCT GLUCOSE (AUTOMATED) 2023-03-27 16:47:00 Fany [facility] POCT GLUCOSE (AUTOMATED) 2023-03-27 16:47:00 Fany [facility] ACTIVATED PARTIAL THRMPLAS AMANUEL 2023-03-27 14:55:00 João Toth [facility] ACTIVATED PARTIAL THRMPLAS AMANUEL 2023-03-27 14:55:00 João Toth [facility] POCT GLUCOSE (AUTOMATED) 2023-03-27 13:13:00 Elisa Soares [facility] POCT GLUCOSE (AUTOMATED) 2023-03-27 13:13:00 Elisa Soares [facility] PHOSPHORUS 2023-03-27 10:15:00 [facility]23-03-27 10:15:[address] [facility] BASIC METABOLIC PANEL (NA, K, CL, CO2, GLUCOSE, BUN, CREATININE, CA) 2023-03-27 10:15:00 Reji Del Toro [facility] CBC WITH DIFF 2023-03-27 10:15:00 [facility] 2023-03-27 10:15:00 [facility] 2023-03-27 10:15:[address]o [facility] BASIC METABOLIC PANEL (NA, K, CL, CO2, GLUCOSE, BUN, CREATININE, CA) 2023-03-27 10:15:00 Reji Del Toro [facility] CBC WITH DIFF 2023-03-27 10:15:00 Reji Del Toro U [facility] ACTIVATED PARTIAL THRMPLAS AMANUEL 2023-03-27 03:32:00 João Toth [facility] ACTIVATED PARTIAL THRMPLAS AMANUEL 2023-03-27 03:32:00 João Toth [facility] POCT GLUCOSE (AUTOMATED) 2023-03-27 02:59:00 Elisa Soares [facility] POCT GLUCOSE (AUTOMATED) 2023-03-27 02:59:00 Fany [facility] POCT GLUCOSE (AUTOMATED) 2023-03-26 21:45:00 Fany [facility] POCT GLUCOSE (AUTOMATED) 2023-03-26 21:45:00 Fany [facility] ACTIVATED PARTIAL THRMPLAS AMANUEL 2023-03-26 21:34:00 João Toth [facility] ACTIVATED PARTIAL THRMPLAS AMANUEL 2023-03-26 21:34:00 João Toth [facility] POCT GLUCOSE (AUTOMATED) 2023-03-26 17:37:00 Fany, [facility] POCT GLUCOSE (AUTOMATED) 2023-03-26 17:37:00 Fany, [facility] POCT GLUCOSE (AUTOMATED) 2023-03-26 12:18:00 Fany, [facility] POCT GLUCOSE (AUTOMATED) 2023-03-26 12:18:00 Fany, [facility] ACTIVATED PARTIAL THRMPLAS AMANUEL 2023-03-26 11:12:00 Janey João [facility] ACTIVATED PARTIAL THRMPLAS AMANUEL 2023-03-26 11:12:00 João Toth [facility] PHOSPHORUS 2023-03-26 06:27:00 [facility] 2023-03-26 06:27:00 Reji Del Toro [facility] BASIC METABOLIC PANEL (NA, K, CL, CO2, GLUCOSE, BUN, CREATININE, CA) 2023-03-26 06:27:00 Reji Del Toro [facility] CBC WITH DIFF 2023-03-26 06:27:00 Reji Del Toro U [facility] ACTIVATED PARTIAL THRMPLAS AMANUEL 2023-03-26 06:27:00 João Toth [facility] PHOSPHORUS 2023-03-26 06:27:00 [facility] 2023-03-26 06:27:00 Reji Del Toro Un [facility] BASIC METABOLIC PANEL (NA, K, CL, CO2, GLUCOSE, BUN, CREATININE, CA) 2023-03-26 06:27:00 Reji Del Toro [facility] CBC WITH DIFF 2023-03-26 06:27:00 Reji Del Toro [facility] ACTIVATED PARTIAL THRMPLAS AMANUEL 2023-03-26 06:27:00 João Tothooq [facility] POCT GLUCOSE (AUTOMATED) 2023-03-26 03:12:00 Fany [facility] POCT GLUCOSE (AUTOMATED) 2023-03-26 03:12:00 Fany [facility] ACTIVATED PARTIAL THRMPLAS AMANUEL 2023-03-25 23:27:00 João Toth [facility] ACTIVATED PARTIAL THRMPLAS AMANUEL 2023-03-25 23:27:00 João Toth [facility] POCT GLUCOSE (AUTOMATED) 2023-03-25 23:07:00 Fany [facility] POCT GLUCOSE (AUTOMATED) 2023-03-25 23:07:00 Fany [facility] POCT GLUCOSE (AUTOMATED) 2023-03-25 20:42:00 Fany [facility] POCT GLUCOSE (AUTOMATED) 2023-03-25 20:42:00 Fany [facility] BASIC METABOLIC PANEL (NA, K, CL, CO2, GLUCOSE, BUN, CREATININE, CA) 2023-03-25 20:22:00 João Toth [facility] CBC WITH DIFF 2023-03-25 20:22:00 Shruthi Toth [facility] BASIC METABOLIC PANEL (NA, K, CL, CO2, GLUCOSE, BUN, CREATININE, CA) 2023-03-25 20:22:00 João Toth [facility] CBC WITH DIFF 2023-03-25 20:22:00 Shruthi Toth [facility] INTUBATION 2023-03-25 17:50:00 Evy Krishnamurthy [facility] CAROTID ANGIOGRAPHY 2023-03-25 17:11:00 Jerome Soares [facility] CAROTID STENTING 2023-03-25 17:11:00 Jerome Soares [facility] ANGIOPLASTY 2023-03-25 17:11:00 Fany Jerome [facility] CAROTID ANGIOGRAPHY 2023-03-25 17:11:00 Fany [facility] CAROTID STENTING 2023-03-25 17:11:00 Jerome Soares [facility] ANGIOPLASTY 2023-03-25 17:11:00 Jerome Soares [facility] POCT GLUCOSE (AUTOMATED) 2023-03-25 15:52:00 Fany [facility] POCT GLUCOSE (AUTOMATED) 2023-03-25 15:52:00 Fany [facility] POCT GLUCOSE (AUTOMATED) 2023-03-25 12:35:00 Fany [facility] POCT GLUCOSE (AUTOMATED) 2023-03-25 12:35:00 Fany [facility] PHOSPHORUS 2023-03-25 06:40:00 [facility] 2023-03-25 06:40:00 [facility] BASIC METABOLIC PANEL (NA, K, CL, CO2, GLUCOSE, BUN, CREATININE, CA) 2023-03-25 06:40:00 Reji Del Toro [facility] CBC WITH DIFF 2023-03-25 06:40:00 Reji Del Toro U [facility] ACTIVATED PARTIAL THRMPLAS AMANUEL 2023-03-25 06:40:00 João Toth [facility] PHOSPHORUS 2023-03-25 06:40:00 [facility] 2023-03-25 06:40:00 [facility] BASIC METABOLIC PANEL (NA, K, CL, CO2, GLUCOSE, BUN, CREATININE, CA) 2023-03-25 06:40:00 Reji Del Toro [facility] CBC WITH DIFF 2023-03-25 06:40:00 Reji Del Toro U [facility] ACTIVATED PARTIAL THRMPLAS AMANUEL 2023-03-25 06:40:00 João Toth [facility] POCT GLUCOSE (AUTOMATED) 2023-03-25 01:05:00 Fany [facility] POCT GLUCOSE (AUTOMATED) 2023-03-25 01:05:00 Fany [facility] POCT GLUCOSE (AUTOMATED) 2023-03-24 22:34:00 Fany [facility] POCT GLUCOSE (AUTOMATED) 2023-03-24 22:34:00 Fany [facility] ACTIVATED PARTIAL THRMPLAS AMANUEL 2023-03-24 22:05:00 João Toth [facility] ACTIVATED PARTIAL THRMPLAS AMANUEL 2023-03-24 22:05:00 João Toth [facility] POCT GLUCOSE (AUTOMATED) 2023-03-24 20:01:00 Fany [facility] POCT GLUCOSE (AUTOMATED) 2023-03-24 20:01:00 Fany [facility] AC PANEL 21 + LACTIC ACID 2023-03-24 18:04:00 Thomas [facility] AC PANEL 21 + LACTIC ACID 2023-03-24 18:04:00 Thomas [facility] POCT GLUCOSE (AUTOMATED) 2023-03-24 16:59:00 Fany [facility] POCT GLUCOSE (AUTOMATED) 2023-03-24 16:59:00 Fany [facility] ACTIVATED PARTIAL THRMPLAS AMANUEL 2023-03-24 15:13:00 João Toth [facility] HB ABO GROUPING 2023-03-24 15:13:00 Shruthi Toth [facility] ACTIVATED PARTIAL THRMPLAS AMANUEL 2023-03-24 15:13:00 João Toth [facility] HB ABO GROUPING 2023-03-24 15:13:00 Shruthi Toth [facility] POCT GLUCOSE (AUTOMATED) 2023-03-24 13:40:00 Fany [facility] POCT GLUCOSE (AUTOMATED) 2023-03-24 13:40:00 Elisa Soares [facility] PHOSPHORUS 2023-03-24 10:46:00 [facility] 2023-03-24 10:46:00 Reji Del Toro [facility] BASIC METABOLIC PANEL (NA, K, CL, CO2, GLUCOSE, BUN, CREATININE, CA) 2023-03-24 10:46:00 Reji Del Toro [facility] CBC WITH DIFF 2023-03-24 10:46:00 [facility] 2023-03-24 10:46:00 [facility] 2023-03-24 10:46:00 [facility] BASIC METABOLIC PANEL (NA, K, CL, CO2, GLUCOSE, BUN, CREATININE, CA) 2023-03-24 10:46:00 Reji Del Toro [facility] CBC WITH DIFF 2023-03-24 10:46:00 Reji Del Toro U [facility] POCT GLUCOSE (AUTOMATED) 2023-03-24 01:35:00 Fany [facility] POCT GLUCOSE (AUTOMATED) 2023-03-24 01:35:00 Fany [facility] POCT GLUCOSE (AUTOMATED) 2023-03-23 22:42:00 Fany [facility] POCT GLUCOSE (AUTOMATED) 2023-03-23 22:42:00 Fany, [facility] POCT GLUCOSE (AUTOMATED) 2023-03-23 18:41:00 Fany, [facility] POCT GLUCOSE (AUTOMATED) 2023-03-23 18:41:00 Fany, [facility] POCT GLUCOSE (AUTOMATED) 2023-03-23 13:02:00 Fany, [facility] POCT GLUCOSE (AUTOMATED) 2023-03-23 13:02:00 Fany, Sh ariq [facility] PHOSPHORUS 2023-03-23 10:35:00 [facility] 2023-03-23 10:35:00 Reji Del Toro [facility] BASIC METABOLIC PANEL (NA, K, CL, CO2, GLUCOSE, BUN, CREATININE, CA) 2023-03-23 10:35:00 Reji Del Toro [facility] CBC WITH DIFF 2023-03-23 10:35:00 [facility] 2023-03-23 10:35:00 [facility] 2023-03-23 10:35:00 Reji Del Toro [facility] BASIC METABOLIC PANEL (NA, K, CL, CO2, GLUCOSE, BUN, CREATININE, CA) 2023-03-23 10:35:00 Reji Del Toro [facility] CBC WITH DIFF 2023-03-23 10:35:00 Reji Del Toro U [facility] POCT GLUCOSE (AUTOMATED) 2023-03-23 01:40:00 Fany [facility] POCT GLUCOSE (AUTOMATED) 2023-03-23 01:40:00 Fany [facility] POCT GLUCOSE (AUTOMATED) 2023-03-22 22:38:00 Fany [facility] POCT GLUCOSE (AUTOMATED) 2023-03-22 22:38:00 Fany [facility] POCT GLUCOSE (AUTOMATED) 2023-03-22 17:00:00 Fany [facility] POCT GLUCOSE (AUTOMATED) 2023-03-22 17:00:00 Fany, [facility] POCT GLUCOSE (AUTOMATED) 2023-03-22 17:00:00 Fany [facility] XR CHEST 1 VW 2023-03-22 13:47:00 Jett Patel [facility] XR CHEST 1 VW 2023-03-22 13:47:00 [facility] 2023-03-22 13:47:00 Jett Patel [facility] POCT GLUCOSE (AUTOMATED) 2023-03-22 12:52:00 Fany [facility] POCT GLUCOSE (AUTOMATED) 2023-03-22 12:52:00 Fany, [facility] POCT GLUCOSE (AUTOMATED) 2023-03-22 12:52:00 Fany, [facility] POCT GLUCOSE (AUTOMATED) 2023-03-22 10:44:00 Fany, [facility] POCT GLUCOSE (AUTOMATED) 2023-03-22 10:44:00 Fany, [facility] POCT GLUCOSE (AUTOMATED) 2023-03-22 10:44:00 Fany [facility] PHOSPHORUS 2023-03-22 09:25:00 Nkechi Lopez [facility] MAGNESIUM 2023-03-22 09:25:00 Nkechi Lopez [facility] BASIC METABOLIC PANEL (NA, K, CL, CO2, GLUCOSE, BUN, CREATININE, CA) 2023-03-22 09:25:00 Jennifer Lopez [facility] CBC WITH DIFF 2023-03-22 09:25:00 Nkechi Lopez [facility] POCT GLUCOSE (AUTOMATED) 2023-03-22 09:25:00 Elisa Soares [facility] PHOSPHORUS 2023-03-22 09:25:00 Nkechi Lopez [facility] MAGNESIUM 2023-03-22 09:25:00 Nkechi Lopez [facility] BASIC METABOLIC PANEL (NA, K, CL, CO2, GLUCOSE, BUN, CREATININE, CA) 2023-03-22 09:25:00 Jennifer Lopez [facility] CBC WITH DIFF 2023-03-22 09:25:00 Nkechi Lopez [facility] POCT GLUCOSE (AUTOMATED) 2023-03-22 09:25:00 Fany [facility] PHOSPHORUS 2023-03-22 09:25:00 Nkechi Lopez [facility] MAGNESIUM 2023-03-22 09:25:00 Nkechi Lopez [facility] BASIC METABOLIC PANEL (NA, K, CL, CO2, GLUCOSE, BUN, CREATININE, CA) 2023-03-22 09:25:00 Jennifer Lopez [facility] CBC WITH DIFF 2023-03-22 09:25:00 Nkechi Lopez [facility] POCT GLUCOSE (AUTOMATED) 2023-03-22 09:25:00 Elisa Soares [facility] AC PANEL 21 + LACTIC ACID 2023-03-22 07:11:00 Maribell [facility] AC PANEL 21 + LACTIC ACID 2023-03-22 07:11:00 Maribell [facility] AC PANEL 21 + LACTIC ACID 2023-03-22 07:11:00 Maribell [facility] POCT GLUCOSE (AUTOMATED) 2023-03-22 05:06:00 Fany [facility] POCT GLUCOSE (AUTOMATED) 2023-03-22 05:06:00 Fany [facility] POCT GLUCOSE (AUTOMATED) 2023-03-22 05:06:00 Elisa Soares [facility] AC PANEL 21 + LACTIC ACID 2023-03-22 02:57:00 Maribell [facility] AC PANEL 21 + LACTIC ACID 2023-03-22 02:57:00 Maribell [facility] AC PANEL 21 + LACTIC ACID 2023-03-22 02:57:00 Maribell [facility] AC PANEL 20 + LACTIC ACID 2023-03-22 00:27:00 Maribell [facility] AC PANEL 20 + LACTIC ACID 2023-03-22 00:27:00 Maribell [facility] AC PANEL 20 + LACTIC ACID 2023-03-22 00:27:00 Maribell [facility] POCT GLUCOSE (AUTOMATED) 2023-03-21 21:41:00 Elisa Soares [facility] POCT GLUCOSE (AUTOMATED) 2023-03-21 21:41:00 Elisa Soares [facility] POCT GLUCOSE (AUTOMATED) 2023-03-21 21:41:00 Elisa Soares [facility] PHOSPHORUS 2023-03-21 21:36:[facility]-21 21:36:[address] [facility] BASIC METABOLIC PANEL (NA, K, CL, CO2, GLUCOSE, BUN, CREATININE, CA) 2023-03-21 21:36:00 Maribell [facility] PHOSPHORUS 2023-03-21 21:36:[address] [facility] MAGNESIUM 2023-03-21 21:36:[address] [facility] BASIC METABOLIC PANEL (NA, K, CL, CO2, GLUCOSE, BUN, CREATININE, CA) 2023-03-21 21:36:00 Maribell [facility] PHOSPHORUS 2023-03-21 21:36:00 [facility] 2023-03-21 21:36:[address] [facility] BASIC METABOLIC PANEL (NA, K, CL, CO2, GLUCOSE, BUN, CREATININE, CA) 2023-03-21 21:36:00 Maribell [facility] FL TIME OR (NON-REPORTABLE) 2023-03-21 21:19:16 João Toth [facility] FL TIME OR (NON-REPORTABLE) 2023-03-21 21:19:16 João Toth [facility] [place] TIME OR (NON-REPORTABLE) 2023-03-21 21:19:16 João Toth [facility] AC PANEL 20 + LACTIC ACID 2023-03-21 21:14:00 [facility]ell [facility] AC PANEL 20 + LACTIC ACID 2023-03-21 21:14:00 [facility]ell [facility] AC PANEL 20 + LACTIC ACID 2023-03-21 21:14:00 Maribell [facility] CBC WITH DIFF 2023-03-21 20:54:00 [facility] PROTHROMBIN TIME / INR 2023-03-21 20:54:00 Sean Reyna [facility] ACTIVATED PARTIAL THRMPLAS AMANUEL 2023-03-21 20:54:00 [facility]ell [facility] MRSA / MSSA SCREEN BY PCR, [facility] 2023-03-21 20:54:00 Jennifer Lopez [facility] CBC WITH DIFF 2023-03-21 20:54:00 [facility] PROTHROMBIN TIME / INR 2023-03-21 20:54:00 Sean Reyna [facility] ACTIVATED PARTIAL THRMPLAS AMANUEL 2023-03-21 20:54:00 Maribell [facility] MRSA / MSSA SCREEN BY PCR, [facility] 2023-03-21 20:54:00 Jennifer Lopez [facility] CBC WITH DIFF 2023-03-21 20:54:00 [facility] PROTHROMBIN TIME / INR 2023-03-21 20:54:00 Sean Reyna [facility] ACTIVATED PARTIAL THRMPLAS AMANUEL 2023-03-21 20:54:00 Mar[facility]ell [facility] MRSA / MSSA SCREEN BY PCR, [facility] 2023-03-21 20:54:00 Jennifer Lopez [facility] POCT GLUCOSE (AUTOMATED) 2023-03-21 20:44:[facility] 2023-03-21 20:44:00 Elisa Soares [facility] POCT GLUCOSE (AUTOMATED) 2023-03-21 20:44:00 [facility] 2023-03-21 15:41:00 Jerome Soares [facility] VASCULAR STENTING 2023-03-21 15:41:00 Jerome Soares [facility] ENDOVASCULAR LOWER EXTREMITY ANGIOPLASTY 2023-03-21 15:41:00 Jerome Soares [facility] ARTERIOGRAM 2023-03-21 15:41:00 Jerome Soares [facility] VASCULAR STENTING 2023-03-21 15:41:00 Jerome Soares [facility] ENDOVASCULAR LOWER EXTREMITY ANGIOPLASTY 2023-03-21 15:41:00 Jerome Soares [facility] POCT GLUCOSE (AUTOMATED) 2023-03-21 14:48:00 [facility] POCT GLUCOSE (AUTOMATED) 2023-03-21 14:48:00 [facility]any [facility] POCT GLUCOSE (AUTOMATED) 2023-03-21 14:48:00 [facility] CONSENT/REFUSAL FOR DIAGNOSIS AND TREATMENT 2023-03-21 13:54:37 Doctor Unassigned, [facility] CONSENT/REFUSAL FOR DIAGNOSIS AND TREATMENT 2023-03-21 13:54:37 Doctor Unassigned, [facility] CONSENT/REFUSAL FOR DIAGNOSIS AND TREATMENT 2023-03-21 13:54:37 Doctor Unassigned, [facility] ASSIGNMENT OF BENEFITS 2023-03-21 13:53:03 Docto r Unassigned, [facility] ASSIGNMENT OF BENEFITS 2023-03-21 13:53:03 Docto r Unassigned, [facility] ASSIGNMENT OF BENEFITS 2023-03-21 13:53:03 Docto r Unassigned, [facility] HOME HEALTH - OTHER 2023-03-15 05:01:00 Doctor Brock farias, [facility] ASSIGNMENT OF BENEFITS 2023-03-08 20:40:56 Docto r Unassigned, [facility] POCT GLUCOSE (AUTOMATED) 2023-02-21 22:01:00 Jamal Meredith [facility] POCT GLUCOSE (AUTOMATED) 2023-02-21 16:55:00 Jamal Meredith [facility] CAROTID DUPLEX BILATERAL - BY VASCULAR LAB 2023-02-21 16:46:00 Bladimir Ferraro [facility] POCT GLUCOSE (AUTOMATED) 2023-02-21 13:09:00 Jamal Meredith [facility] TROPONIN I 2023-02-21 10:40:00 [facility] 2023-02-21 10:40:00 Sam Meredith [facility] LIPID PANEL (90467)(TOTAL CHOLESTEROL, TRIGLYCERIDES, HDL) 2023-02-21 10:40:00 Sam Meredith [facility] GLYCOSYLATED HEMOGLOBIN (A1C) 2023-02-21 10:40:00 Sam Meredith [facility] LACTIC ACID WHOLE BLOOD 2023-02-21 04:33:00 Do betty Culp [facility] XR HIPS 3 VW LEFT 2023-02-21 02:42:18 Ramírez Culp [facility] LACTIC ACID WHOLE BLOOD 2023-02-21 01:56:00 Do betty Culp [facility] LIPASE 2023-02-21 01:43:00 Ramírez Culp [facility] TROPONIN I 2023-02-21 01:43:00 Ramírez Culp [facility] COMP. METABOLIC PANEL (39123) 2023-02-21 01:43:00 Ramírez Culp [facility] CBC WITH DIFF 2023-02-21 01:43:00 Ramírez Culp [facility] URINALYSIS 2023-02-21 01:43:00 [facility] N-TERMINAL PRO-BNP 2023-02-21 01:43:00 Ramírez Culp [facility] URINE DRUG (IMMUNOASSAY) - COMPREHENSIVE DRUG SCREEN W/O REFLEX 2023-02-21 01:43:00 Ramírez Culp [facility] PATIENT FINANCIAL RESPONSIBILITY - ALL FORMS 2023-02-08 05:01:00 Doctor Unassigned, [facility] - OTHER 2023-01-28 05:01:00 Doctor U nassigned, [facility] PATIENT QUESTIONNAIRE 2023-01-19 05:01:00 Doctor Unassigned, [facility] HOME HEALTH 485 2023-01-09 05:01:00 Doctor Unass igned, [facility] PATIENT QUESTIONNAIRE 2022-12-21 05:01:00 Doctor Unassigned, [facility] - OTHER 2022-12-17 05:01:00 Doctor U matthewsigned, [facility] - OTHER 2022-12-14 05:01:00 Doctor U nassigned, [facility] ASSIGNMENT OF BENEFITS 2022-12-09 13:47:13 Docto r Unassigned, [facility] POCT URINALYSIS 2022-12-09 00:00:00 [facility] 2022-11-10 05:01:00 Doctor Unass igned, [facility] REFERRAL- REQUEST/RESPONSE 2022-10-28 05:01:00 D octor Unassigned, [facility] EXTERNAL PROVIDER RECORDS 2022-10-15 05:01:00 Do ctor Unassigned, [facility] MAGNESIUM 2022-09-28 17:16:00 Brian Israel [facility] FERRITIN SERUM 2022-09-28 17:16:00 Brian Israel [facility] FREE T4 2022-09-28 17:16:00 Brian Israel [facility] THYROID STIMULATING HORMONE 2022-09-28 17:16:00 Brian Israel [facility] IRON PANEL 2022-09-28 17:16:00 Brian Israel [facility] GLYCOSYLATED HEMOGLOBIN (A1C) 2022-09-28 17:16:00 Brian Israel [facility] PATIENT QUESTIONNAIRE 2022-09-28 05:01:00 Doctor Unassigned, [facility] PHYSICIAN ORDERS 2022-09-27 05:01:00 Doctor Valente signed, [facility] AUTHORIZATION FOR RELEASE OF PHI 2022-09-22 05:01:00 Doctor Unassigned, [facility] - OTHER 2022-09-18 05:01:00 Doctor Brock farias, [facility] US RETROPERITONEAL COMPLETE 2022-09-13 17:22:29 Jamshid Early [facility] HOME HEALTH 485 2022-09-11 06:01:00 Doctor Unass igned, [facility] EXTERNAL PROVIDER - ADC CARDIOLOGY 2022-09-07 06:01:00 Doctor Unassigned, [facility] HOME HEALTH - OTHER 2022-08-03 06:01:00 Doctor U nassigned, [facility] POCT GLUCOSE (AUTOMATED) 2022-07-05 22:16:00 Patel Betancur [facility] POCT GLUCOSE (AUTOMATED) 2022-07-05 17:17:00 Patel Betancur [facility] POCT GLUCOSE (AUTOMATED) 2022-07-05 13:18:00 Patel Betancur [facility] MAGNESIUM 2022-07-05 09:26:00 Bladimir Ferraro [facility] BASIC METABOLIC PANEL (NA, K, CL, CO2, GLUCOSE, BUN, CREATININE, CA) 2022-07-05 09:26:00 Bladimir Ferraro [facility] CBC WITHOUT DIFF 2022-07-05 09:26:00 Bladimir Ferraro [facility] N-TERMINAL PRO-BNP 2022-07-05 09:26:00 Bladimir Ferraro [facility] POCT GLUCOSE (AUTOMATED) 2022-07-05 09:25:00 Patel Betancur [facility] POCT GLUCOSE (AUTOMATED) 2022-07-05 06:07:00 Patel Betancur [facility] POCT GLUCOSE (AUTOMATED) 2022-07-05 02:18:00 Patel Betancur [facility] POCT GLUCOSE (AUTOMATED) 2022-07-04 22:20:00 Patel Betancur [facility] POCT GLUCOSE (AUTOMATED) 2022-07-04 21:16:00 Patel Betancur [facility] POCT GLUCOSE (AUTOMATED) 2022-07-04 17:07:00 Patel Betancur [facility] POCT GLUCOSE (AUTOMATED) 2022-07-04 13:18:00 Patel Betancur [facility] MAGNESIUM 2022-07-04 10:21:00 Ronan [facility] BASIC METABOLIC PANEL (NA, K, CL, CO2, GLUCOSE, BUN, CREATININE, CA) 2022-07-04 10:21:00 Ronan [facility] N-TERMINAL PRO-BNP 2022-07-04 10:21:00 [facility] 2022-07-04 06:31:00 [facility] ([facility]OMATED) 2022-07-04 01:48:00 [facility] PO[facility]UCOSE (AUTOMATED) 2022-07-03 22:08:00 [facility] MAG[facility]IUM 2022-07-03 19:39:00 Ronan [facility] TROPONIN I 2022-07-03 19:39:00 Ronan [facility] BASIC METABOLIC PANEL (NA, K, CL, CO2, GLUCOSE, BUN, CREATININE, CA) 2022-07-03 19:39:00 Ronan [facility] N-TERMINAL PRO-BNP 2022-07-03 19:39:00 Ronan [facility] POCT GLUCOSE (AUTOMATED) 2022-07-03 17:16:00 Gypsy [facility] CBC WITH DIFF 2022-07-03 16:20:00 Ronan [facility] POCT GLUCOSE (AUTOMATED) 2022-07-03 13:28:00 [facility] PO[facility]UCOSE (AUTOMATED) 2022-07-03 10:52:00 [facility] PO[facility] GLUCOSE (AUTOMATED) 2022-07-03 06:08:00 Gypsy [facility] POCT GLUCOSE (AUTOMATED) 2022-07-03 02:16:00 Gypsy [facility] POCT GLUCOSE (AUTOMATED) 2022-07-02 22:11:00 Gypsy [facility] POCT GLUCOSE (AUTOMATED) 2022-07-02 17:11:00 [facility]UCOSE (AUTOMATED) 2022-07-02 13:15:00 Patel Betancur [facility] MAGNESIUM 2022-07-02 10:20:00 Bladimir Ferraro [facility] TROPONIN I 2022-07-02 10:20:00 [facility] MET[facility]OLIC PANEL (NA, K, CL, CO2, GLUCOSE, BUN, CREATININE, CA) 2022-07-02 10:20:00 Ronan [facility] LIPID PANEL (79449)(TOTAL CHOLESTEROL, TRIGLYCERIDES, HDL) 2022-07-02 10:20:00 Ronan [facility] CBC WITH DIFF 2022-07-02 10:20:00 Ronan [facility] N-TERMINAL PRO-BNP 2022-07-02 10:20:00 Ronan [facility] POCT GLUCOSE (AUTOMATED) 2022-07-02 10:18:00 Gypsy [facility] POCT GLUCOSE (AUTOMATED) 2022-07-02 05:15:00 Gypsy [facility] POCT GLUCOSE (AUTOMATED) 2022-07-02 02:13:00 [facility]UCOSE (AUTOMATED) 2022-07-01 21:47:00 Patel Betancur [facility] POCT GLUCOSE (AUTOMATED) 2022-07-01 17:29:00 [facility] PO[facility] GLUCOSE (AUTOMATED) 2022-07-01 13:35:00 [facility] PO[facility] GLUCOSE (AUTOMATED) 2022-07-01 09:34:00 Patel Betancur [facility] PHOSPHORUS 2022-07-01 09:32:00 Patel Betancur [facility] MAGNESIUM 2022-07-01 09:32:00 Patel [facility] TROPONIN I 2022-07-01 09:32:00 Patel [facility]ancur [facility] HEPATIC FUNCTION PANEL ([id number]) (ALB,T.PRO,BILI T,BU/BC,ALT,AST,ALK PHOS) 2022-07-01 09:32:00 Patel Betancur [facility] BASIC METABOLIC PANEL (NA, K, CL, CO2, GLUCOSE, BUN, CREATININE, CA) 2022-07-01 09:32:00 Patel Betancur [facility] CBC WITH DIFF 2022-07-01 09:32:00 Patel Betancur [facility] N-TERMINAL PRO-BNP 2022-07-01 09:32:00 Patel Betancur [facility] POCT GLUCOSE (AUTOMATED) 2022-07-01 05:26:00 Gypsy [facility] POCT GLUCOSE (AUTOMATED) 2022-07-01 01:58:00 Patel Betancur [facility] POCT GLUCOSE (AUTOMATED) 2022-06-30 22:26:00 Gypsy Patel [facility] BLOOD CULTURE SCREEN 2022-06-30 18:43:00 Lisa Betancur [facility] BLOOD CULTURE SCREEN 2022-06-30 18:17:00 Lisa Betancur [facility] MRSA / MSSA SCREEN BY RHEA AGUDELO 2022-06-30 18:17:00 Patel Betancur [facility] POCT GLUCOSE (AUTOMATED) 2022-06-30 17:52:00 [facility] PO[facility] GLUCOSE (AUTOMATED) 2022-06-30 14:33:00 Patel Betancur [facility] XR CHEST 1 VW 2022-06-30 13:42:32 Nayely Jarvis [facility] HB ECG ROUTINE & RHYTHM STRIP 2022-06-30 13:28:23 Nayely Jarvis [facility] POCT GLUCOSE (AUTOMATED) 2022-06-30 10:14:00 Patel Betancur [facility] PHOSPHORUS 2022-06-30 10:09:00 Patel Betancur [facility] MAGNESIUM 2022-06-30 10:09:00 Patel Betancur [facility] BASIC METABOLIC PANEL (NA, K, CL, CO2, GLUCOSE, BUN, CREATININE, CA) 2022-06-30 10:09:00 Patel Betancur [facility] CBC WITH DIFF 2022-06-30 10:09:00 Patel Betancur [facility] N-TERMINAL PRO-BNP 2022-06-30 10:09:00 Patel Betancur [facility] POCT GLUCOSE (AUTOMATED) 2022-06-30 02:20:00 Gypsy [facility] POCT GLUCOSE (AUTOMATED) 2022-06-29 22:15:00 Gypsy [facility] POCT GLUCOSE (AUTOMATED) 2022-06-29 17:14:00 Gypsy [facility] TRANSTHORACIC ECHO (TTE) COMPLETE 2022-06-29 15:12:00 Sushil Persaud [facility] POCT GLUCOSE (AUTOMATED) 2022-06-29 13:30:00 Patel Betancur [facility] PHOSPHORUS 2022-06-29 10:52:00 Patel Betancur [facility] MAGNESIUM 2022-06-29 10:52:00 Patel Betancur [facility] TROPONIN I 2022-06-29 10:52:00 Nayely Jarvis [facility] HEPATIC FUNCTION PANEL (55112) (ALB,T.PRO,BILI T,BU/BC,ALT,AST,ALK PHOS) 2022-06-29 10:52:00 Nayely Jarvis [facility] BASIC METABOLIC PANEL (NA, K, CL, CO2, GLUCOSE, BUN, CREATININE, CA) 2022-06-29 10:52:00 Patel Betancur [facility] N-TERMINAL PRO-BNP 2022-06-29 10:52:00 Nayely Jarvis [facility] PROCALCITONIN 2022-06-29 10:52:00 Nayely Jarvis [facility] AC VBG + LACTIC ACID 2022-06-29 10:52:00 Acacia Jarvis [facility] POCT GLUCOSE (AUTOMATED) 2022-06-29 07:05:00 Patel Betancur [facility] XR CHEST 1 VW 2022-06-29 06:51:00 Nayely Jarvis [facility] POCT GLUCOSE (AUTOMATED) 2022-06-29 02:24:00 Patel Betancur [facility] POCT GLUCOSE (AUTOMATED) 2022-06-28 22:30:00 Patel Betancur [facility] POCT GLUCOSE (AUTOMATED) 2022-06-28 17:12:00 Patel Betancur [facility] POCT GLUCOSE (AUTOMATED) 2022-06-28 13:34:00 Patel Betancur [facility] PHOSPHORUS 2022-06-28 10:19:00 Patel [facility]ur [facility] MAGNESIUM 2022-06-28 10:19:00 Patel Betancur [facility] TROPONIN I 2022-06-28 10:19:00 Nayely Jarvis [facility] BASIC METABOLIC PANEL (NA, K, CL, CO2, GLUCOSE, BUN, CREATININE, CA) 2022-06-28 10:19:00 Patel Betancur [facility] N-TERMINAL PRO-BNP 2022-06-28 10:19:00 Patel Betancur [facility] POCT GLUCOSE (AUTOMATED) 2022-06-28 10:18:00 Patel Betancur [facility] POCT GLUCOSE (AUTOMATED) 2022-06-28 05:53:00 [facility] PO[facility] GLUCOSE (AUTOMATED) 2022-06-28 02:12:00 Patel Betancur [facility] POCT GLUCOSE (AUTOMATED) 2022-06-27 22:09:00 Patel Betancur [facility] POCT GLUCOSE (AUTOMATED) 2022-06-27 17:07:00 [facility] POCT GLUCOSE (AUTOMATED) 2022-06-27 14:02:00 Patel Betancur [facility] PHOSPHORUS 2022-06-27 10:55:00 Patel Betancur [facility] MAGNESIUM 2022-06-27 10:55:00 Patel [facility]ur [facility] TROPONIN I 2022-06-27 10:55:00 Patel Betancur [facility] BASIC METABOLIC PANEL (NA, K, CL, CO2, GLUCOSE, BUN, CREATININE, CA) 2022-06-27 10:55:00 Patel Betancur [facility] CBC WITH DIFF 2022-06-27 10:55:00 Patel Betancur [facility] N-TERMINAL PRO-BNP 2022-06-27 10:55:00 Patel Betancur [facility] POCT GLUCOSE (AUTOMATED) 2022-06-27 10:54:00 Gypsy [facility] POCT GLUCOSE (AUTOMATED) 2022-06-27 05:44:00 Gypsy Patel [facility] POCT GLUCOSE (AUTOMATED) 2022-06-27 02:24:00 Patel Betancur [facility] CT ABDOMEN PELVIS WO CONTRAST 2022-06-26 19:55:00 Ramírez Culp [facility] BLOOD CULTURE SCREEN 2022-06-26 19:09:00 Rhiannon Culp [facility] XR CHEST 1 VW 2022-06-26 19:05:13 Ramírez Culp [facility] LIPASE 2022-06-26 18:07:00 Ramírez Culp [facility] MAGNESIUM 2022-06-26 18:07:00 Ramírez Culp [facility] TROPONIN I 2022-06-26 18:07:00 Ramírez Culp [facility] COMP. METABOLIC PANEL ([id number]) 2022-06-26 18:07:00 Ramírez Culp [facility] CBC WITH DIFF 2022-06-26 18:07:00 Ramírez Culp [facility] PROTHROMBIN TIME / INR 2022-06-26 18:07:00 Dave Culp [facility] ACTIVATED PARTIAL THRMPLAS AMANUEL 2022-06-26 18:07:00 Ramírez Culp [facility] URINALYSIS 2022-06-26 18:07:00 Ramírez Culp [facility] URINE CULTURE 2022-06-26 18:07:00 [facility]/B 2022-06-26 18:07:00 Arvind Culp [facility] N-TERMINAL PRO-BNP 2022-06-26 18:07:00 Ramírez Culp [facility] LACTIC ACID WHOLE BLOOD 2022-06-26 18:07:00 Do betty Culp [facility] COVID-19 (ID NOW RAPID TESTING) 2022-06-26 18:07:00 Ramírez Culp [facility] LAB ONLY COVID INTERPRETATION 2022-06-26 18:07:00 Ramírez Culp [facility] BLOOD CULTURE SCREEN 2022-06-26 18:04:00 Rhiannon Culp [facility] HB ECG ROUTINE & RHYTHM STRIP 2022-06-26 17:55:44 Ramríez Culp [facility] CONSENT/REFUSAL FOR DIAGNOSIS AND TREATMENT 2022-06-26 17:34:38 Doctor Unassigned, [facility] HEALTH - OTHER 2022-05-20 06:01:00 Doctor Brock farias, [facility] FLU VACC(),65+YR,0.5 ML,IM,ADJUVANTED,QUAD(FLUA D) 2022-05-10 20:09:55 Brian Israel [facility] PATIENT QUESTIONNAIRE 2022-05-10 06:01:00 Doctor Unassigned, [facility] - OTHER 2022-05-03 05:01:00 Doctor Brock farias, [facility] AUTHORIZATION TO RELEASE PHI TO [facility] 2022-04-07 05:01:00 Doctor Unassigned, Wells [facility] DME/SUPPLY JUSTIFICATION 2022-03-24 05:01:00 Doc tor Unassigned, [facility] PATIENT QUESTIONNAIRE 2022-03-16 05:01:00 Doctor Unassigned, [facility] Nadja Mayorga Ntrbd Min Dsc Crv [facility] Cardiac Catheterization [facility] Cataract Surgery [facility] Total Hysterectomy [facility] Plan of Care Planned Activity Planned Date Details Comments Source Diagnostic Test Pending 2021-04-13 00:00:00 HbA1c (hemoglobin A1c), blood [code = HbA1c (hemoglobin A1c), blood] [facility] Diagnostic Test Pending 2021-04-13 00:00:00 CMP, serum or plasma [code = CMP, serum or plasma] [facility] Encounters Start Date/Time End Date/Time Encounter Type Admission Type Attending Clinicians Care Facility Care Department Encounter ID Source 2022-07-23 09:09:12 Outpatient [facility] [id number] [facility] 2022-04-05 16:46:26 Outpatient [facility] [id number] [facility] 2022-03-05 08:56:39 Outpatient [facility] [id number] [facility] 2022-02-16 04:20:33 Outpatient [facility] [id number] [facility] 2022-02-04 07:58:20 Outpatient [facility] [id number] [facility] 2022-01-07 11:08:09 Outpatient [facility] [id number] [facility] 2021-08-27 23:47:45 Outpatient NEW ADMISSION ENCC[facility] ENCCLR [id number] [facility] 2021-07-30 13:23:53 Outpatient 3 [id number] ENC[facility] RHIANNA [id number] [facility] 2021-07-30 13:23:41 Outpatient 3 [id number] ENCPL REF [id number] [facility] 2021-06-12 10:36:50 Outpatient READMISSIO N BRIAR CUTTER PENDING, BRIAR CUTTER PENDING ENCCLR ENCCLR [id number] ENCC[facility] 2021-05-01 17:37:15 Emergency [facility] [id number] [facility] 2021-05-01 17:11:08 Emergency [facility] [id number] [facility] 2021-05-01 12:10:06 Emergency [facility] [id number] [facility] 2018-04-25 00:00:00 2024-10-25 22:17:52 Ochoa Quinn [facility] 1..840.114 350.1.13.10 [id number] [facility] 2022-03-15 00:00:00 2024-10-25 21:34:33 RefBrian Pickering [facility] 1..840.114 [id number] [id number] [facility] 2024-09-25 16:00:00 2024-09-25 16:00:00 Outpatient JEROME MOSER [facility] [id number] [facility] 2024-09-24 00:00:00 2024-09-25 02:04:42 Orders Only Doctor Unassigned, Wells Doctor Unassigned, Wells [facility] ([place] 1..840.114 350.1.13.10 [id number] [id number] [facility] 2024-09-20 15:30:00 2024-09-20 16:22:32 Outpatient JEROME MOSER [facility] [id number] [facility] 2024-09-06 13:30:00 2024-09-06 13:30:00 Outpatient JEROME MOSER [facility] [id number] [facility] 2024-08-21 00:00:00 2024-08-22 02:04:16 Orders Only Doctor Unassigned, Wells Doctor Unassigned, Wells [facility] ([place]) 1..840.114 350.1.13.10 [id number] [id number] [facility] 2024-08-21 00:00:00 2024-08-22 02:04:05 Orders Only Doctor Unassigned, Wells Doctor Unassigned, Wells [facility] ([place] [id number] 350.1.13.10 [id number] [facility] 2024-08-20 00:00:00 2024-08-21 21:59:31 Telephone Brian Israel [facility] [id number] 350.1.13.10 [id number] [facility] 2024-03-12 00:00:00 2024-08-18 07:00:33 Orders Only Tomlin, Lou Tomlin, Lou [facility] [id number] 350.1.13.10 [id number] [id number] [facility] 2024-05-23 00:00:00 2024-08-18 06:35:37 Orders Only Doctor Unassigned, Wells Doctor Unassigned, Wells [facility] [id number] 350.1.13.10 4.2.7.2.686 [id number] [facility] 2024-06-19 00:00:00 2024-08-18 06:27:43 Orders Only Doctor Unassigned, Wells Doctor Unassigned, Wells [facility] 1.2840.114 350.1.13.10 4.2.7.2.686 [id number] [facility] 2023-06-06 00:00:00 2024-08-18 02:36:44 Orders Only Tomlin, Lou Tomlin, Lou [facility]A [facility] MED[facility] OFF[facility] BUILDING 1.2.840.114 350.1.13.10 4.2.7.2.686 [id number] 044 [id number] [facility] 2024-08-16 00:00:00 2024-08-16 11:52:33 Telephone Lindy [facility] JOHN?MALIKA [facility] BUILDING 1.2.840.114 350.1.13.10 4.2.7.2.686 [id number] 044 [id number] [facility] 2024-08-10 00:00:00 2024-08-14 17:22:39 Refill Lindy [facility] JOHN?MALIKA [facility] 1.2.840.114 350.1.13.10 4.2.7.2.686 [id number] 044 [id number] [facility] 2024-08-03 00:00:00 2024-08-03 14:59:11 Telephone Lindy [facility] JOHN?MALIKA [facility] 1.2.840.114 350.1.13.10 4.2.7.2.686 [id number] 044 [id number] [facility] 2024-08-02 13:45:00 2024-08-02 13:45:00 Outpatient JEROME MOSER [facility] [id number] [facility] 2024-07-29 00:00:00 2024-07-30 12:59:26 Refill Lindy [facility] JOHN?MALIKA [facility] MEDICAL OFFICE BUILDING 1.2.840.114 350.1.13.10 4.2.7.2.686 [id number] 044 [id number] [facility] 2024-07-25 13:30:00 2024-07-25 13:30:00 Outpatient JAMSHID ROBERTSON [facility] [id number] [facility] 2024-07-17 09:57:36 2024-07-17 23:59:00 Hospital Encounter Jerome Soares [facility] PROFESSIO NAL BUILDING 1.2.840.114 350.1.13.10 4.2.7.2.686 [id number] [facility] 2024-07-17 09:57:30 2024-07-17 23:59:00 Outpatient R FANY [facility] [id number] [facility] 2024-07-17 09:57:30 2024-07-17 23:59:00 Hospital Encounter Fany Jerome [facility] BU[facility] 1.2.840.114 350.1.13.10 4.2.7.2.686 [id number] [id number] [facility] 2024-07-16 11:20:00 2024-07-16 11:20:00 Outpatient BRIAN PRUETT [facility] [id number] [facility] 2024-07-08 00:00:00 2024-07-10 12:40:48 Refill Lindy Brian [facility] J[facility]ON[facility] 1.2.840.114 350.1.13.10 4.2.7.2.686 [id number] 044 [id number] [facility] 2024-06-28 00:00:00 2024-06-28 12:31:24 Refill Lindy Brian [facility] JOHN?[facility] MED[facility] OFF[facility] BUILD[facility] 1.2.840.114 350.1.13.10 4.2.7.2.686 [id number] [id number] [facility] 2024-06-25 00:00:00 2024-06-26 22:16:10 Refill Elsi Christian [facility] JOHN?[facility] 1.2.840.114 350.1.13.10 4.2.7.2.686 [id number] 044 [id number] [facility] 2024-06-25 15:30:00 2024-06-25 15:30:00 Outpatient JAMSHID ROBERTSON [facility] [id number] [facility] 2024-06-21 13:30:00 2024-06-21 13:30:00 Outpatient JEROME MOSER [facility] [id number] [facility] 2024-06-19 16:00:00 2024-06-19 16:00:00 [facility] [id number] 2024-06-19 00:00:00 2024-06-19 14:24:04 Refill Lindy [facility] 1.2.840.114 350.1.13.10 4.2.7.2.686 [id number] [facility] 2024-06-17 00:00:00 2024-06-18 14:39:09 Refill Lindy [facility] 1.2.840.114 350.1.13.10 4.2.7.2.686 [id number] 044 [id number] [facility] 2024-06-12 15:00:00 2024-06-12 15:00:00 Outpatient JEROME MOSER [facility] [id number] [facility] 2024-06-12 00:00:00 2024-06-12 13:03:28 Telephone Jerome Soares [facility] BU[facility] 1.2.840.114 350.1.13.10 4.2.7.2.686 [id number] [id number] [facility] 2024-06-05 00:00:00 2024-06-05 17:01:35 Telephone Lindy [facility] MED[facility] OFF[facility] BUILD[facility] 1.2.840.114 350.1.13.10 4.2.7.2.686 [id number] [id number] [facility] 2024-06-04 00:00:00 2024-06-05 09:27:59 Telephone Lindy [facility] JOHN?MALIKA [facility] BUILD[facility] 1.20.114 350.1.13.10 4.2.7.2.686 [id number] 044 [id number] [facility] 2024-05-31 00:00:00 2024-06-01 08:40:11 Refill Tacho Nehal [facility] JOHN?MALIKA [facility] MEDICAL OFFICE BUILDING 1..114 350.1.13.10 4.2.7.2.686 [id number] 044 [id number] [facility] 2024-05-29 10:30:00 2024-05-29 10:30:00 Outpatient R JAMSHID EARLY [facility] [id number] [facility] 2024-05-28 13:00:00 2024-05-28 13:00:00 Outpatient R MICHAEL FAKNAKUL CHRISTIAN FAKREBECCAA [facility] [id number] [facility] 2024-05-27 00:00:00 2024-05-28 09:35:29 Refill Lindy [facility] JOHN?[facility] 1..114 350.1.13.10 4.2.7.2.686 [id number] 044 [id number] [facility] 2024-05-25 00:00:00 2024-05-25 13:34:16 Telephone Lindy [facility] JOHN?MALIKA [facility] MEDICAL OFFICE BUILDING 1..114 350.1.13.10 4.2.7.2.686 [id number] 044 [id number] [facility] 2024-05-23 00:00:00 2024-05-23 15:44:12 Letter (Out) [facility] 1.20.114 350.1.13.10 4.2.7.2.686 [id number] [facility] 2024-05-15 00:00:00 2024-05-15 15:17:55 Telephone Lindy [facility] JOHN?MALIKA [facility] MEDICAL OFFICE BUILDING 1.2.840.114 350.1.13.10 4.2.7.2.686 [id number] 044 [id number] [facility] 2024-05-14 00:00:00 2024-05-15 08:33:46 Telephone Elsi Christian [facility] JOHN?[facility] 1.2.840.114 350.1.13.10 4.2.7.2.686 [id number] [facility] 2024-05-14 00:00:00 2024-05-14 17:04:16 Telephone Lindy [facility] JOHN?[facility] 1.2.840.114 350.1.13.10 4.2.7.2.686 [id number] 044 [id number] [facility] 2024-04-05 00:00:00 2024-05-12 18:27:53 Patient Secure Msg Doctor Unassigned, Wells Doctor Unassigned, Wells [facility] 1.2.840.114 350.1.13.10 4.2.7.2.686 [id number] 019 [id number] [facility] 2024-05-10 00:00:00 2024-05-11 10:08:05 Telephone Sera [facility] JOHN?[facility] 1.2.840.114 350.1.13.10 4.2.7.2.686 [id number] 044 [id number] [facility] 2024-05-10 15:15:00 2024-05-10 16:16:51 Outpatient JEROME MOSER [facility] [id number] [facility] 2024-05-10 15:15:00 2024-05-10 16:16:51 Office Visit Jerome Soares [facility] 1..114 350.1.13.10 4.2.7.2.686 [id number] [facility] 2024-05-09 00:00:00 2024-05-09 16:18:20 Refill Jamshid Early BUILDING 1..114 350.1.13.10 4.2.7.2.686 [id number] 080 [id number] [facility] 2024-05-09 00:00:00 2024-05-09 13:40:38 Refill Brian Israel [facility] TERESITA LOPEZ?MALIKA [facility] MEDICAL OFFICE BUILDING 1.114 350.1.13.10 4.2.7.2.686 [id number] [id number] [facility] 2024-05-08 00:00:00 2024-05-08 00:00:00 Outpatient JAMSHID ROBERTSON [facility] [id number] [facility] 2024-05-04 10:30:00 2024-05-04 10:30:00 Outpatient KAMLESH MORENO [facility] [id number] [facility] 2024-05-03 00:00:00 2024-05-03 16:22:26 Patient Outreach Talia Epstein Laura L [address] 1..114 350.1.13.10 4.2.7.2.686 [id number] [facility] 2024-05-01 00:00:00 2024-05-03 10:54:51 Patient Secure Msg Doctor Unassigned, Wells Doctor Unassigned, Wells [facility] [place] 1..114 350.1.13.10 4.2.7.2.686 [id number] [facility] 2024-05-01 00:00:00 2024-05-02 09:00:54 [facility] 1.2.840.114 350.1.13.10 4.2.7.2.686 [id number] [id number] [facility] 2024-04-30 13:00:00 2024-04-30 13:49:34 Outpatient R ELSI [facility]RISTIAN [facility] [id number] [facility] 2024-04-30 13:00:00 2024-04-30 13:49:34 Office Visit Michael [facility]?MALIKA [facility] MED[facility] OFF[facility] BUILDING 1.2.840.114 350.1.13.10 4.2.7.2.686 [id number] 044 [id number] [facility] 2024-04-27 00:00:00 2024-04-27 21:53:36 Refill Lindy [facility] 1..840.114 350.1.13.10 4.2.7.2.686 [id number] 044 [id number] [facility] 2024-04-27 00:00:00 2024-04-27 15:05:37 Patient Outreach Talia Epstein Laura L [address] 1.840.114 350.1.13.10 4.2.7.2.686 [id number] [facility] 2024-04-27 00:00:00 2024-04-27 09:49:29 [facility] 1.2.840.114 350.1.13.10 4.2.7.2.686 [id number] 044 [id number] [facility] 2024-04-26 00:00:00 2024-04-27 06:59:03 Telephone Lindy [facility]?MALIKA [facility] MEDICAL OFFICE BUILDING 1..114 350.1.13.10 4.2.7.2.686 [id number] 044 [id number] [facility] 2024-04-26 00:00:00 2024-04-26 15:14:38 Patient Outreach Talia Epstein, Talia GAGE 1..114 350.1.13.10 4.2.7.2.686 [id number] [facility] 2024-04-26 00:00:00 2024-04-26 08:24:06 [facility] 1..114 350.1.13.10 4.2.7.2.686 [id number] 044 [id number] [facility] 2024-04-25 00:00:00 2024-04-25 00:00:00 Outpatient R JAMSHID EARLY [facility] [id number] [facility] 2024-04-19 00:00:00 2024-04-19 16:22:54 Patient Outreach Talia Epstein Laura L [address] 1..114 350.1.13.10 4.2.7.2.686 [id number] 403 [id number] [facility] 2024-04-18 00:00:00 2024-04-19 10:49:23 Telephone Jamshid Early [facility] NAL BUILDING 1..114 350.1.13.10 4.2.7.2.686 [id number] 059 [id number] [facility] 2024-04-18 00:00:00 2024-04-18 13:35:40 Patient Outreach Talia Epstein Laura L [address] 1.114 350.1.13.10 4.2.7.2.686 [id number] 403 [id number] [facility] 2024-04-18 00:00:00 2024-04-18 13:02:59 Telephone Brian Israel [facility]?MALIKA [facility] MEDICAL OFFICE BUILDING 1.2.840.114 350.1.13.10 4.2.7.2.686 [id number] 044 [id number] [facility] 2024-04-18 00:00:00 2024-04-18 10:27:34 Patient Outreach Talia Epstein Laura L [place] 1.2.840.114 350.1.13.10 4.2.7.2.686 [id number] [facility] 2024-04-17 10:04:30 2024-04-17 23:59:00 Hospital Encounter Emili Gee [facility]?MALIKA [facility] MEDICAL OFFICE BUILDING 1.2.840.114 350.1.13.10 4.2.7.2.686 [id number] [facility] 2024-04-17 09:45:00 2024-04-17 10:45:29 Outpatient R PHILIPPE LARSEN CRAIG [facility] [id number] [facility] 2024-04-17 09:45:00 2024-04-17 10:45:29 Office Visit Emili Gee Philippe Larsen [facility]?MALIKA [facility] MED[facility] OFF[facility] BUILDING 1.2.840.114 350.1.13.10 4.2.7.2.686 [id number] [facility] 2024-04-10 13:00:00 2024-04-10 13:00:00 Outpatient R JAYDEN MITCHELL [facility] [id number] [facility] 2024-04-03 14:20:00 2024-04-03 15:03:33 Outpatient R CHRISTIAN, GINA MICHAEL, ELSI [facility] [id number] [facility] 2024-04-03 14:20:00 2024-04-03 15:03:33 [facility] MEDICAL OFFICE BUILDING 1..840.114 350.1.13.10 4.2.7.2.686 [id number] 044 [id number] [facility] 2024-03-27 00:00:00 2024-03-27 10:58:34 [facility] 1..840.114 350.1.13.10 4.2.7.2.686 [id number] [id number] [facility] 2024-03-27 10:40:00 2024-03-27 10:40:00 Outpatient R CHRISTIAN, GINA MICHAEL, ELSI [facility] [id number] [facility] 2024-03-20 11:00:00 2024-03-20 11:00:00 Outpatient R CHRISTIAN, GINA CHRISTIAN, ELSI [facility] [id number] [facility] 2024-03-20 00:00:00 2024-03-20 09:26:27 [facility] 1.2.840.114 350.1.13.10 4.2.7.2.686 [id number] 044 [id number] [facility] 2024-03-17 00:00:00 2024-03-19 08:26:09 Telephone Lindy [facility] JOHN?[facility] 1.2.840.114 350.1.13.10 4.2.7.2.686 [id number] 044 [id number] [facility] 2024-03-14 00:00:00 2024-03-14 14:36:05 Telephone Lindy [facility] JOHN?MALIKA [facility] MEDICAL OFFICE BUILDING 1.2.840.114 350.1.13.10 4.2.7.2.686 [id number] [facility] 2024-03-13 13:40:00 2024-03-13 13:40:00 Outpatient R ÁNGEL ISRAELINE LINDY [facility] [id number] [facility] 2024-03-09 00:00:00 2024-03-12 08:20:15 [facility] MED[facility] OFF[facility] BUILDING 1.2.840.114 350.1.13.10 4.2.7.2.686 [id number] [id number] [facility] 2024-03-01 00:00:00 2024-03-01 15:06:40 Telephone [facility] BU[facility] 1.2.840.114 350.1.13.10 4.2.7.2.686 [id number] [id number] [facility] 2024-02-28 00:00:00 2024-02-28 00:00:00 Outpatient R JAMSHID EARLY [facility] [id number] [facility] 2024-02-27 00:00:00 2024-02-27 00:00:00 Outpatient JAMSHID ROBERTSON [facility] [id number] [facility] 2024-02-22 00:00:00 2024-02-24 17:59:29 Refill Lindy [facility]?MALIKA [facility] MEDICAL OFFICE BUILDING 1.2.840.114 350.1.13.10 4.2.7.2.686 [id number] 044 [id number] [facility] 2024-02-10 00:00:00 2024-02-16 10:20:25 Telephone Jerome Soares [facility] 1.2.840.114 350.1.13.10 4.2.7.2.686 [id number] [facility] 2024-02-09 00:00:00 2024-02-10 13:05:50 Shahzad Heránndez [facility]?MALIKA [facility] MEDICAL OFFICE BUILDING 1.2840.114 350.1.13.10 4.2.7.2.686 [id number] 044 [id number] [facility] 2024-02-09 00:00:00 2024-02-09 13:13:59 Telephone Jamshid Early [facility] BU[facility] 1.2840.114 350.1.13.10 4.2.7.2.686 [id number] 059 [id number] [facility] 2024-02-01 00:00:00 2024-02-03 04:51:46 Telephone Seraallison [facility] 1.2840.114 350.1.13.10 4.2.7.2.686 [id number] 044 [id number] [facility] 2024-01-31 13:00:00 2024-01-31 16:22:54 Outpatient R JAMSHID EARLY [facility] [id number] [facility] 2024-01-31 13:00:00 2024-01-31 16:22:54 Office Visit Jamshid Early [facility] 1.2840.114 350.1.13.10 4.2.7.2.686 [id number] 059 [id number] [facility] 2024-01-31 10:40:00 2024-01-31 11:44:53 Office Visit [facility] 1.2840.114 350.1.13.10 4.2.7.2.686 [id number] 044 [id number] [facility] 2024-01-29 00:00:00 2024-01-31 09:33:11 [facility] 1..840.114 350.1.13.10 4.2.7.2.686 [id number] [id number] [facility] 2024-01-30 10:30:00 2024-01-30 10:30:00 Outpatient R JAMSHID EARLY [facility] [id number] [facility] 2024-01-17 00:00:00 2024-01-17 15:48:10 Telephone Abigail Ley 1..840.114 350.1.13.10 4.2.7.2.686 [id number] [facility] 2024-01-16 16:01:00 2024-01-16 20:29:00 Emergency X JUS SHAHZAD [facility] [id number] [facility] 2024-01-16 16:01:00 2024-01-16 20:29:00 Emergency JusVivienne kuoine [facility] 1..840.114 350.1.13.10 4.2.7.2.686 [id number] [facility] 2023-12-27 10:20:00 2023-12-27 11:44:04 Outpatient R SERAAllisonBRIAN [facility] [id number] [facility] 2023-12-27 10:20:00 2023-12-27 11:44:04 [facility] 1..840.114 350.1.13.10 4.2.7.2.686 [id number] 044 [id number] [facility] 2023-12-26 10:00:00 2023-12-26 10:00:00 Outpatient R [facility] [id number] [facility] 2023-12-22 00:00:00 2023-12-22 14:11:57 Telephone Lindy [facility] JOHN?MALIKA [facility] MEDICAL OFFICE BUILDING 1.2.840.114 350.1.13.10 4.2.7.2.686 [id number] 044 [id number] [facility] 2023-12-21 00:00:00 2023-12-22 11:37:26 Refill Lindy [facility] JOHN?[facility] 1.2.840.114 350.1.13.10 4.2.7.2.686 [id number] 044 [id number] [facility] 2023-12-16 10:30:00 2023-12-16 10:30:00 Outpatient R JAMSHID EARLY [facility] [id number] [facility] 2023-12-07 00:00:00 2023-12-09 12:41:51 Refill Lindy [facility] JOHN?[facility] 1.2.840.114 350.1.13.10 4.2.7.2.686 [id number] 044 [id number] [facility] 2023-12-09 00:00:00 2023-12-09 10:35:59 [facility] 1.2.840.114 350.1.13.10 4.2.7.2.686 [id number] 059 [id number] [facility] 2023-12-05 00:00:00 2023-12-06 15:17:25 Telephone Lindy [facility] JOHN?[facility] 1.2.840.114 350.1.13.10 4.2.7.2.686 [id number] 044 [id number] [facility] 2023-11-22 11:00:00 2023-11-22 11:00:00 Outpatient R JAYDEN MITCHELL [facility] [id number] [facility] 2023-11-21 00:00:00 2023-11-21 15:31:31 [facility] 1.2840.114 350.1.13.10 4.2.7.2.686 [id number] 044 [id number] [facility] 2023-09-05 00:00:00 2023-11-21 06:45:38 Refill Lindy [facility] 1.2840.114 350.1.13.10 4.2.7.2.686 [id number] 044 [id number] [facility] 2023-10-17 00:00:00 2023-11-19 18:08:34 Patient Secure Msg Doctor Unassigned, Wells [facility] NAL BUILDING 1.84.114 350.1.13.10 4.2.7.2.686 [id number] [facility] 2023-11-14 12:00:00 2023-11-14 12:15:00 American Board Certified Orthotist Visit Lab, Cameron Early Lindy [facility] 1.840.114 350.1.13.10 4.2.7.2.686 [id number] [facility] 2023-11-14 12:00:00 2023-11-14 12:00:00 [facility] [id number] [facility] 2023-11-11 12:15:00 2023-11-11 12:15:00 American Board Certified Orthotist Visit Lab, Cameron Early [facility] 1.840.114 350.1.13.10 4.2.7.2.686 [id number] [facility] 2023-11-11 12:15:00 2023-11-11 12:09:45 Outpatient R [facility] [id number] [facility] 2023-11-11 10:40:00 2023-11-11 12:05:37 Office Visit Lindy [facility] 1.2.840.114 350.1.13.10 4.2.7.2.686 [id number] 044 [id number] [facility] 2023-11-07 00:00:00 2023-11-08 10:12:20 Telephone Lindy [facility] 1.2840.114 350.1.13.10 4.2.7.2.686 [id number] [id number] [facility] 2023-11-03 00:00:00 2023-11-03 00:00:00 Telephone Bridgette Black 1.2840.114 350.1.13.10 4.2.7.2.686 [id number] [facility] 2023-11-01 00:00:00 2023-11-01 00:00:00 Refill [facility] 1.2840.114 350.1.13.10 4.2.7.2.686 [id number] [id number] [facility] 2023-10-30 14:38:00 2023-10-30 17:42:00 Emergency X DANIELLA HAWK [facility] ERT [id number] [facility] 2023-10-30 14:38:00 2023-10-30 17:42:00 Emergency Daniella Hawk [facility] 1.2840.114 350.1.13.10 4.2.7.2.686 [id number] [facility] 2023-10-28 00:00:00 2023-10-28 00:00:00 Telephone Wale Haynes [facility] 1.2.840.114 350.1.13.10 4.2.7.2.686 [id number] [facility] 2023-10-26 00:00:00 2023-10-26 00:00:00 Refill Wale Haynes [facility] 1.2.840.114 350.1.13.10 4.2.7.2.686 [id number] [facility] 2023-10-26 00:00:00 2023-10-26 00:00:00 Refill Lindy [facility] 1.2.840.114 350.1.13.10 4.2.7.2.686 [id number] [id number] [facility] 2023-10-14 00:00:00 2023-10-14 00:00:00 [facility] 1.2.840.114 350.1.13.10 4.2.7.2.686 [id number] [id number] [facility] 2023-10-11 00:00:00 2023-10-11 00:00:00 Telephone Nehal Titus [facility] 1.2.840.114 350.1.13.10 4.2.7.2.686 [id number] [id number] [facility] 2023-10-04 13:49:09 2023-10-04 23:59:00 Outpatient STEPH JONES [facility] [id number] [facility] 2023-10-04 13:49:09 2023-10-04 23:59:00 Hospital Encounter Steph Nur [facility] 1.2.840.114 350.1.13.10 4.2.7.2.686 [id number] [facility] 2023-09-28 00:00:00 2023-09-28 00:00:00 [facility] 1.2.840.114 350.1.13.10 4.2.7.2.686 [id number] [id number] [facility] 2023-09-22 00:00:00 2023-09-22 00:00[facility] 1.2.840.114 350.1.13.10 4.2.7.2.686 [id number] [id number] [facility] 2023-09-21 10:00:00 2023-09-21 11:07:24 Outpatient R JAMSHID EARLY [facility] [id number] [facility] 2023-09-21 10:00:00 2023-09-21 11:07:24 Office Visit Jamshid Early [facility] 1.2.840.114 350.1.13.10 4.2.7.2.686 [id number] [facility] 2023-09-21 10:30:00 2023-09-21 10:45:00 American Board Certified Orthotist Visit 2, Ad[facility] Lab Jamshid Early [facility] 1.2.840.114 350.1.13.10 4.2.7.2.686 [id number] [facility] 2023-09-07 00:00:00 2023-09-07 00:00:00 [facility] 1.2.840.114 350.1.13.10 4.2.7.2.686 [id number] 044 [id number] [facility] 2023-09-06 00:00:00 2023-09-06 00:00:00 Orders Only Doctor Unassigned, Wells [facility] 1.2840.114 350.1.13.10 4.2.7.2.686 [id number] [id number] [facility] 2023-09-02 00:00:00 2023-09-02 00:00:00 Telephone Lindy [facility] 1.840.114 350.1.13.10 4.2.7.2.686 [id number] 044 [id number] [facility] 2023-08-24 11:00:00 2023-08-24 11:00:00 DAVID Pate HAIDER [facility] [id number] [facility] 2023-08-24 00:00:00 2023-08-24 00:00:00 Nurse Triage Simba Bailey [facility] 1.0.114 350.1.13.10 4.2.7.2.686 [id number] 019 [id number] [facility] 2023-08-23 00:00:00 2023-08-23 00:00:00 Telephone Jamshid Early [facility] 1.840.114 350.1.13.10 4.2.7.2.686 [id number] 059 [id number] [facility] 2023-08-22 00:00:00 2023-08-22 00:00:00 Refill Lindy [facility] 1.2840.114 350.1.13.10 4.2.7.2.686 [id number] 044 [id number] [facility] 2023-08-12 11:00:00 2023-08-12 11:24:47 Outpatient R MICHOACANO WILKES [facility] [id number] [facility] 2023-08-12 11:00:00 2023-08-12 11:24:47 [facility] 1.2840.114 350.1.13.10 4.2.7.2.686 [id number] 085 [id number] [facility] 2023-08-09 00:00:00 2023-08-09 00:00:00 Refill Lindy [facility] 1.284.114 350.1.13.10 4.2.7.2.686 [id number] 044 [id number] [facility] 2023-08-08 00:00:00 2023-08-08 00:00:00 Orders Only Doctor Unassigned, Wells [facility] 1.2840.114 350.1.13.10 4.2.7.2.686 [id number] [id number] [facility] 2023-07-25 00:00:00 2023-07-25 00:00:00 Orders Only Doctor Unassigned, Wells [facility] 1.2840.114 350.1.13.10 4.2.7.2.686 [id number] 009 [id number] [facility] 2023-07-20 00:00:00 2023-07-20 00:00:00 [facility] 1.284.114 350.1.13.10 4.2.7.2.686 [id number] 044 [id number] [facility] 2023-07-17 00:00:00 2023-07-17 00:00:00 [facility] 1.2.840.114 350.1.13.10 4.2.7.2.686 [id number] 044 [id number] [facility] 2023-07-14 00:00:00 2023-07-14 00:00:00 Telephone aJmshid EarlyHKeri [facility] NAL [facility] 1.2840.114 350.1.13.10 4.2.7.2.686 [id number] 059 [id number] [facility] 2023-07-13 08:30:00 2023-07-13 23:59:00 Hospital Encounter Jamshid EarlyHKeri [facility] N[facility] 1.2840.114 350.1.13.10 4.2.7.2.686 [id number] [facility] 2023-07-13 09:20:00 2023-07-13 11:09:34 Outpatient R [facility] [id number] [facility] 2023-07-13 09:20:00 2023-07-13 11:09:34 Office Visit David Lima [facility] 1.2840.114 350.1.13.10 4.2.7.2.686 [id number] [id number] [facility] 2023-07-13 00:00:00 2023-07-13 00:00:00 Telephone Jamshid EarlyHKeri [facility] 1.2840.114 350.1.13.10 4.2.7.2.686 [id number] 059 [id number] [facility] 2023-07-13 00:00:00 2023-07-13 00:00:00 Telephone Wale Haynes [facility] 1.2.840.114 350.1.13.10 4.2.7.2.686 [id number] [facility] 2023-07-11 00:00:00 2023-07-11 00:00:00 Refill Lindy [facility]IKA [facility] 1.840.114 350.1.13.10 4.2.7.2.686 [id number] 044 [id number] [facility] 2023-07-09 00:00:00 2023-07-09 00:00:00 Refill Erick Larios [facility] 1.840.114 350.1.13.10 4.2.7.2.686 [id number] [facility] 2023-07-08 14:00:00 2023-07-08 15:10:42 Outpatient R SERAAllisonBRIAN [facility] [id number] [facility] 2023-07-08 14:00:00 2023-07-08 15:10:42 Office Visit Lindy [facility] 1.840.114 350.1.13.10 4.2.7.2.686 [id number] 044 [id number] [facility] 2023-06-29 10:00:00 2023-06-29 10:00:00 Outpatient DAVID TOMPKINS HAIDER [facility] [id number] [facility] 2023-06-29 00:00:00 2023-06-29 00:00:00 Orders Only Doctor Unassigned, Wells [facility] .84.114 350.1.13.10 4.2.7.2.686 [id number] 009 [id number] [facility] 2023-06-24 00:00:00 2023-06-24 00:00:00 Telephone Jamshid Early [facility] 1.840.114 350.1.13.10 4.2.7.2.686 [id number] 059 [id number] [facility] 2023-06-22 11:00:00 2023-06-22 11:51:38 American Board Certified Orthotist Visit 2, Adc Lab Jamshid Early [facility] 1.2840.114 350.1.13.10 4.2.7.2.686 [id number] [facility] 2023-06-22 10:00:00 2023-06-22 10:46:49 Outpatient R JAMSHID EARLY [facility] [id number] [facility] 2023-06-22 10:00:00 2023-06-22 10:46:49 Office Visit Jamshid Early [facility] 1.20.114 350.1.13.10 4.2.7.2.686 [id number] 059 [id number] [facility] 2023-06-22 00:00:00 2023-06-22 00:00:00 Refill Lindy [facility] JOHN?MALIKA [facility] 1.2840.114 350.1.13.10 4.2.7.2.686 [id number] 044 [id number] [facility] 2023-06-21 00:00:00 2023-06-21 00:00:00 Telephone Lindy [facility] JOHN?MALIKA [facility] 1.2840.114 350.1.13.10 4.2.7.2.686 [id number] 044 [id number] [facility] 2023-06-21 00:00:00 2023-06-21 00:00:00 Telephone Lindy [facility] JOHN?[facility] 1.2840.114 350.1.13.10 4.2.7.2.686 [id number] 044 [id number] [facility] 2023-06-21 00:00:00 2023-06-21 00:00:00 Orders Only Doctor Unassigned, Wells [facility] 1.2.840.114 350.1.13.10 4.2.7.2.686 [id number] [id number] [facility] 2023-06-17 00:00:00 2023-06-17 00:00:00 Telephone Brian Israel [facility]A [facility] 1.2.840.114 350.1.13.10 4.2.7.2.686 [id number] 044 [id number] [facility] 2023-06-15 11:30:00 2023-06-15 11:30:00 Outpatient NEHAL JUAN [facility] [id number] [facility] 2023-06-13 10:20:00 2023-06-13 10:20:00 Outpatient BRIAN PRUETT [facility] [id number] [facility] 2023-06-13 00:00:00 2023-06-13 00:00:00 Telephone José Miguel Bedolla [facility] 1.2.840.114 350.1.13.10 4.2.7.2.686 [id number] [facility] 2023-06-09 09:30:00 2023-06-09 10:00:00 Office Visit Michoacano Wilkes [facility] 1.2.840.114 350.1.13.10 4.2.7.2.686 [id number] [id number] [facility] 2023-06-09 09:30:00 2023-06-09 09:30:00 Outpatient R MICHOACANO WILKES SHIWAN [facility] [id number] [facility] 2023-06-07 00:00:00 2023-06-07 00:00:00 Patient Secure Msg Doctor Unassigned, Wells [facility] JOHN?[facility]IKA [facility] 1.284.114 350.1.13.10 4.2.7.2.686 [id number] 044 [id number] [facility] 2023-06-07 00:00:00 2023-06-07 00:00:00 Telephone Lindy Brian [facility] JOHN?[facility]A [facility] 1.84.114 350.1.13.10 4.2.7.2.686 [id number] 044 [id number] [facility] 2023-06-06 12:06:20 2023-06-06 23:59:00 Outpatient R STERLINGSeth NEHAL [facility] [id number] [facility] 2023-06-06 12:06:20 2023-06-06 23:59:00 Hospital Encounter Sterlingseth Nehal [facility] JOHN?[facility]A [facility] 1.84.114 350.1.13.10 4.2.7.2.686 [id number] 809 [id number] [facility] 2023-06-06 11:30:00 2023-06-06 12:00:00 Office Visit [facility] 1.84.114 350.1.13.10 4.2.7.2.686 [id number] 044 [id number] [facility] 2023-06-06 00:00:00 2023-06-06 00:00:00 Telephone Jina Rock [facility] 1.84.114 350.1.13.10 4.2.7.2.686 [id number] [facility] 2023-06-03 00:00:00 2023-06-03 00:00:00 Telephone Lindy Brian [facility] JOHN?[facility]A [facility] 1.840.114 350.1.13.10 4.2.7.2.686 [id number] 044 [id number] [facility] 2023-06-03 00:00:00 2023-06-03 00:00:00 Telephone Lindy [facility] JOHN?[facility] 1.2840.114 350.1.13.10 4.2.7.2.686 [id number] 044 [id number] [facility] 2023-06-02 00:00:00 2023-06-02 00:00:00 Telephone Lindy [facility] JOHN?[facility] 1.20.114 350.1.13.10 4.2.7.2.686 [id number] 044 [id number] [facility] 2023-06-01 00:00:00 2023-06-01 00:00:00 Telephone Lindy [facility] JOHN?[facility] 1.2840.114 350.1.13.10 4.2.7.2.686 [id number] 044 [id number] [facility] 2023-05-31 00:00:00 2023-05-31 00:00:00 Telephone Jerome Soares [facility] 1.840.114 350.1.13.10 4.2.7.2.686 [id number] [facility] 2023-05-31 00:00:00 2023-05-31 00:00:00 Telephone Lindy [facility] JOHN?[facility] 1.2840.114 350.1.13.10 4.2.7.2.686 [id number] [id number] [facility] 2023-05-30 00:00:00 2023-05-30 00:00:00 Telephone Lindy [facility] JOHN?[facility] 1.2840.114 350.1.13.10 4.2.7.2.686 [id number] 044 [id number] [facility] 2023-05-24 00:00:00 2023-05-24 00:00:00 Telephone Lindy [facility]?MALIKA [facility] 1.84114 350.1.13.10 4.2.7.2.686 [id number] 044 [id number] [facility] 2023-05-23 10:00:00 2023-05-23 11:15:31 Outpatient R ERICK LARIOS [facility] [id number] [facility] 2023-05-23 10:00:00 2023-05-23 11:15:31 Office Visit Harriet [facility] 1.84.114 350.1.13.10 4.2.7.2.686 [id number] [facility] 2023-05-23 10:30:00 2023-05-23 10:30:00 Outpatient R ERICK LARIOS YU [facility] [id number] [facility] 2023-05-20 00:00:00 2023-05-20 00:00:00 Orders Only Doctor Unassigned, Wells [facility] 1.84114 350.1.13.10 4.2.7.2.686 [id number] [id number] [facility] 2023-05-19 13:00:00 2023-05-19 13:00:00 Outpatient R JAMSHID EARLY [facility] [id number] [facility] 2023-05-18 00:00:00 2023-05-18 00:00:00 Telephone Lindy [facility] 1.84.114 350.1.13.10 4.2.7.2.686 [id number] 044 [id number] [facility] 2023-05-17 00:00:00 2023-05-17 00:00:00 Refill Lindy [facility] 1.2.840.114 350.1.13.10 4.2.7.2.686 [id number] 044 [id number] [facility] 2023-05-16 15:45:00 2023-05-16 15:45:00 Outpatient JOSÉ MIGUEL BLANCHARD MITCHELL [facility] [id number] [facility] 2023-05-16 00:00:00 2023-05-16 00:00:00 [facility] 1.2.840.114 350.1.13.10 4.2.7.2.686 [id number] 044 [id number] [facility] 2023-05-16 00:00:00 2023-05-16 00:00:00 [facility]phone [facility] 1..840.114 350.1.13.10 4.2.7.2.686 [id number] [id number] [facility] 2023-05-12 00:00:00 2023-05-12 00:00:00 Telephone Jerome Soares [facility] 1..840.114 350.1.13.10 4.2.7.2.686 [id number] [facility] 2023-05-09 10:40:00 2023-05-09 10:40:00 Outpatient R BRIAN ISRAEL [facility] [id number] [facility] 2023-05-05 14:45:00 2023-05-05 16:12:55 Outpatient R JEROME SOARES [facility] [id number] [facility] 2023-05-05 14:45:00 2023-05-05 16:12:55 Office Visit Jerome Soares [facility] 1..114 350.1.13.10 4.2.7.2.686 [id number] [facility] 2023-05-05 10:20:00 2023-05-05 11:20:20 Office Visit [facility] 1.0.114 350.1.13.10 4.2.7.2.686 [id number] 044 [id number] [facility] 2023-05-05 00:00:00 2023-05-05 00:00:00 Orders Only Doctor Unassigned, Wells [facility] 1.2840.114 350.1.13.10 4.2.7.2.686 [id number] [facility] 2023-04-27 11:00:00 2023-04-27 11:57:05 Outpatient R DAVID [facility] [id number] [facility] 2023-04-27 11:00:00 2023-04-27 11:57:05 Office Visit [facility] 1.0.114 350.1.13.10 4.2.7.2.686 [id number] 059 [id number] [facility] 2023-04-21 16:20:00 2023-04-21 16:20:00 Outpatient R BRIAN [facility] [id number] [facility] 2023-04-20 00:00:00 2023-04-20 00:00:00 Transition of Care Alda Morrison 1..114 350.1.13.10 4.2.7.2.686 [id number] [facility] 2023-04-12 15:17:00 2023-04-19 18:13:00 Inpatient X [facility] [id number] [facility] 2023-04-12 15:17:00 2023-04-19 18:13:00 Hospital Encounter Tootie Chau Germán [facility] 1.2.840.114 350.1.13.10 4.2.7.2.686 [id number] 081 [id number] [facility] 2023-04-15 00:00:00 2023-04-15 00:00:00 Refill Lindy [facility] 1.2840.114 350.1.13.10 4.2.7.2.686 [id number] 044 [id number] [facility] 2023-04-12 00:00:00 2023-04-12 00:00:00 Telephone Lindy [facility] 1.2.840.114 350.1.13.10 4.2.7.2.686 [id number] 044 [id number] [facility] 2023-04-06 00:00:00 2023-04-06 00:00:00 [facility] 1.2.840.114 350.1.13.10 4.2.7.2.686 [id number] 044 [id number] [facility] 2023-04-04 00:00:00 2023-04-04 00:00:00 Orders Only Doctor Unassigned, Wells [facility] 1.2.840.114 350.1.13.10 4.2.7.2.686 [id number] [id number] [facility] 2023-03-29 00:00:00 2023-03-29 00:00:00 Transition of Care Rodo Gomez 1.2.840.114 350.1.13.10 4.2.7.2.686 [id number] [facility] 2023-03-29 00:00:00 2023-03-29 00:00:00 Telephone Julissa Michoacano [facility] KYA PROFESSIO NAL BUILDING 1.2.840.114 350.1.13.10 4.2.7.2.686 [id number] 085 [id number] [facility] 2023-03-29 00:00:00 2023-03-29 00:00:00 Telephone Lindy Brian [facility] JOHN?MALIKA RE[facility]Y [facility] 1.2.840.114 350.1.13.10 4.2.7.2.686 [id number] 044 [id number] [facility] 2023-03-21 08:51:00 2023-03-28 13:25:00 Inpatient [facility] [id number] [facility] 2023-03-21 08:51:00 2023-03-28 13:25:00 Hospital Encounter Formerly [facility] 1.2.840.114 350.1.13.10 4.2.7.2.686 [id number] 089 [id number] [facility] 2023-03-25 12:28:00 2023-03-25 14:55:00 Anesthesia Event Mary Poon Brita M [facility] 1.2.840.114 350.1.13.10 4.2.7.2.686 [id number] [facility] 2023-03-25 11:09:00 2023-03-25 13:23:00 Surgery [facility] 1.2.840.114 350.1.13.10 4.2.7.2.686 [id number] [facility] 2023-03-21 10:30:00 2023-03-21 12:59:00 Surgery [facility] 1.2.840.114 350.1.13.10 4.2.7.2.686 [id number] [facility] 2023-03-21 10:40:00 2023-03-21 10:40:00 Outpatient R BRIAN [facility] [id number] [facility] 2023-03-15 00:00:00 2023-03-15 00:00:00 Orders Only Doctor Unassigned, Wells [facility] 1.2840.114 350.1.13.10 4.2.7.2.686 [id number] [facility] 2023-03-14 00:00:00 2023-03-14 00:00:00 Patient Secure Msg Doctor Unassigned, Wells [facility] 1.0.114 350.1.13.10 4.2.7.2.686 [id number] [facility] 2023-03-10 16:30:00 2023-03-10 17:07:51 Outpatient R JEROME SOARES [facility] [id number] [facility] 2023-03-10 16:30:00 2023-03-10 17:07:51 Office Visit Jerome Soares [facility] 1.0.114 350.1.13.10 4.2.7.2.686 [id number] 205 [id number] [facility] 2023-03-10 00:00:00 2023-03-10 00:00:00 Telephone Lindy Brian [facility] TERESITA REILLY MED[facility] OFF[facility]ILD[facility] 1..114 350.1.13.10 4.2.7.2.686 [id number] 044 [id number] [facility] 2023-03-08 16:20:00 2023-03-08 17:12:57 Outpatient R BRIAN [facility] [id number] [facility] 2023-03-08 16:20:00 2023-03-08 17:12:57 Office Visit Lindy [facility] 1.284.114 350.1.13.10 4.2.7.2.686 [id number] [id number] [facility] 2023-03-08 00:00:00 2023-03-08 00:00:00 Orders Only Doctor Unassigned, Wells [facility] 1.0.114 350.1.13.10 4.2.7.2.686 [id number] [id number] [facility] 2023-02-28 00:00:00 2023-02-28 00:00:00 Refill Lindy [facility] 1.84.114 350.1.13.10 4.2.7.2.686 [id number] [id number] [facility] 2023-02-22 00:00:00 2023-02-22 00:00:00 Outpatient ROEL CADENA [facility] [id number] [facility] 2023-02-22 00:00:00 2023-02-22 00:00:00 Transition of Care Alda Morrison 1.84.114 350.1.13.10 4.2.7.2.686 [id number] [facility] 2023-02-22 00:00:00 2023-02-22 00:00:00 Patient Secure Msg Doctor Unassigned, Wells [facility] 1..114 350.1.13.10 4.2.7.2.686 [id number] [facility] 2023-02-20 20:53:00 2023-02-21 19:00:00 Outpatient [facility] [id number] [facility] 2023-02-20 20:53:00 2023-02-21 19:00:00 Emergency Ramírez Culp Mohammad A. [facility] 1.2.840.114 350.1.13.10 4.2.7.2.686 [id number] [facility] 2023-02-15 00:00:00 2023-02-15 00:00:00 Refill Lindy [facility] 1.2.840.114 350.1.13.10 4.2.7.2.686 [id number] [facility] 2023-02-11 00:00:00 2023-02-11 00:00:00 Telephone Lindy [facility] 1.2.840.114 350.1.13.10 4.2.7.2.686 [id number] [facility] 2023-02-10 00:00:00 2023-02-10 00:00:00 Telephone Roel Hoang [facility] 1.2.840.114 350.1.13.10 4.2.7.2.686 [id number] [facility] 2023-02-09 00:00:00 2023-02-09 00:00:00 Telephone Roel Hoang [facility] 1.2.840.114 350.1.13.10 4.2.7.2.686 [id number] [facility] 2023-02-08 11:00:00 2023-02-08 13:22:21 Outpatient R ROEL HOANG [facility] [id number] [facility] 2023-02-08 11:00:00 2023-02-08 13:22:21 [facility] 1.2.840.114 350.1.13.10 4.2.7.2.686 [id number] [facility] 2023-02-08 00:00:00 2023-02-08 00:00:00 Orders Only Doctor Unassigned, Wells [facility] 1.2840.114 350.1.13.10 4.2.7.2.686 [id number] [facility] 2023-02-02 00:00:00 2023-02-02 00:00:00 Refill [facility] 1.0.114 350.1.13.10 4.2.7.2.686 [id number] [facility] 2023-01-28 00:00:00 2023-01-28 00:00:00 Refill [facility] 1.840.114 350.1.13.10 4.2.7.2.686 [id number] [facility] 2023-01-28 00:00:00 2023-01-28 00:00:00 Orders Only Doctor Unassigned, Wells [facility] 1.840.114 350.1.13.10 4.2.7.2.686 [id number] [facility] 2023-01-21 00:00:00 2023-01-21 00:00:00 Telephone [facility] 1.840.114 350.1.13.10 4.2.7.2.686 [id number] [id number] [facility] 2023-01-20 00:00:00 2023-01-20 00:00:00 Patient Secure Msg Doctor Unassigned, Wells [facility] 1.2840.114 350.1.13.10 4.2.7.2.686 [id number] [facility] 2023-01-19 00:00:00 2023-01-19 00:00:00 Orders Only Doctor Unassigned, Wells [facility] 1.2840.114 350.1.13.10 4.2.7.2.686 [id number] [facility] 2023-01-18 09:40:00 2023-01-18 09:40:00 [id number] 2023-01-10 10:40:00 2023-01-10 10:40:00 Outpatient BRIAN PR[facility]T [facility] [id number] [facility] 2023-01-09 00:00:00 2023-01-09 00:00:00 Orders Only Doctor Unassigned, [place] [facility] [facility] 1.2840.114 350.1.13.10 4.2.7.2.686 [id number] 009 [id number] [facility] 2023-01-06 00:00:00 2023-01-06 00:00:00 Telephone Lindy [facility] 1.2.840.114 350.1.13.10 4.2.7.2.686 [id number] 044 [id number] [facility] 2023-01-05 00:00:00 2023-01-05 00:00:[facility] 1.2.840.114 350.1.13.10 4.2.7.2.686 [id number] 044 [id number] [facility] 2022-12-24 10:40:00 2022-12-24 11:39:26 Outpatient XENIA BURKS [facility] [id number] [facility] 2022-12-24 10:40:00 2022-12-24 11:39:26 Office Visit Xenia Lomeli BUILDING 1.84.114 350.1.13.10 4.2.7.2.686 [id number] [facility] 2022-12-24 00:00:00 2022-12-24 00:00:00 Telephone Lindy [facility] 1..114 350.1.13.10 4.2.7.2.686 [id number] 044 [id number] [facility] 2022-12-22 00:00:00 2022-12-22 00:00:00 Refill Lindy [facility] OFF[facility] 1..114 350.1.13.10 4.2.7.2.686 [id number] 044 [id number] [facility] 2022-12-21 10:40:00 2022-12-21 11:18:46 Outpatient R MARYCARMEN ROJAS [facility] [id number] [facility] 2022-12-21 10:40:00 2022-12-21 11:18:46 Office Visit Marycarmen Rojas [facility] BUILD[facility] 1.84.114 350.1.13.10 4.2.7.2.686 [id number] [facility] 2022-12-21 00:00:00 2022-12-21 00:00:00 Orders Only Doctor Unassigned, Wells [facility] 1..114 350.1.13.10 4.2.7.2.686 [id number] [id number] [facility] 2022-12-17 11:40:00 2022-12-17 11:40:00 Outpatient R XENIA LOMELI [facility] [id number] [facility] 2022-12-17 00:00:00 2022-12-17 00:00:00 Orders Only Doctor Unassigned, Wells [facility] 1.2.840.114 350.1.13.10 4.2.7.2.686 [id number] 009 [id number] [facility] 2022-12-14 00:00:00 2022-12-14 00:00:00 Orders Only Doctor Unassigned, Wells [facility] 1.2.840.114 350.1.13.10 4.2.7.2.686 [id number] [id number] [facility] 2022-12-09 09:00:00 2022-12-09 10:30:44 Outpatient R BRIAN SIRAEL [facility] [id number] [facility] 2022-12-09 09:00:00 2022-12-09 10:30:44 Office Visit Lindy [facility] MED[facility] OFF[facility] BUILD[facility] 1.2.840.114 350.1.13.10 4.2.7.2.686 [id number] 044 [id number] [facility] 2022-12-09 00:00:00 2022-12-09 00:00:00 Orders Only Doctor Unassigned, Wells [facility] 1.2.840.114 350.1.13.10 4.2.7.2.686 [id number] 009 [id number] [facility] 2022-12-08 00:00:00 2022-12-08 00:00:00 Telephone Lindy [facility] MEDICAL OFFICE BUILD[facility] 1.2.840.114 350.1.13.10 4.2.7.2.686 [id number] 044 [id number] [facility] 2022-11-30 11:45:00 2022-11-30 11:45:00 Outpatient MISA JARAMILLO [facility] [id number] [facility] 2022-11-29 00:00:00 2022-11-29 00:00:00 Refill Erick Larios [facility]?MALIKA [facility] MEDICAL OFFICE BUILDING 1.840.114 350.1.13.10 4.2.7.2.686 [id number] [facility] 2022-11-26 13:40:00 2022-11-26 13:40:00 Outpatient R BRIAN ISRAEL [facility] [id number] [facility] 2022-11-25 11:00:00 2022-11-25 11:00:00 Outpatient R MICHOACANO WILKES SHIWAN [facility] [id number] [facility] 2022-11-22 15:00:00 2022-11-22 15:00:00 Outpatient R ERICK LARIOS YU [facility] [id number] [facility] 2022-11-18 00:00:00 2022-11-18 00:00:00 Telephone Lindy [facility] MED[facility] OFF[facility] BUILD[facility] 1.840.114 350.1.13.10 4.2.7.2.686 [id number] 044 [id number] [facility] 2022-11-16 10:40:00 2022-11-16 10:40:00 Outpatient R SERAAllisonBRIAN [facility] [id number] [facility] 2022-11-10 00:00:00 2022-11-10 00:00:00 Telephone Lindy [facility] MED[facility] OFF[facility] BUILD[facility] 1.840.114 350.1.13.10 4.2.7.2.686 [id number] 044 [id number] [facility] 2022-11-10 00:00:00 2022-11-10 00:00:00 Orders Only Doctor Unassigned, Wells [facility] 1.84.114 350.1.13.10 4.2.7.2.686 [id number] [id number] [facility] 2022-11-09 10:30:00 2022-11-09 10:30:00 Outpatient R CONSTANCE STONE [facility] [id number] [facility] 2022-11-08 11:20:00 2022-11-08 11:20:00 Outpatient R MARYCARMEN ROJAS [facility] [id number] [facility] 2022-10-29 00:00:00 2022-10-29 00:00:00 Telephone Lindy [facility] 1.840.114 350.1.13.10 4.2.7.2.686 [id number] 044 [id number] [facility] 2022-10-28 13:00:00 2022-10-28 13:40:00 [facility]medici ne [facility] 1.84.114 350.1.13.10 4.2.7.2.686 [id number] 044 [id number] [facility] 2022-10-28 13:00:00 2022-10-28 13:00:00 Outpatient R ÁNGEL ISRAELINE LINDY [facility] [id number] [facility] 2022-10-28 00:00:00 2022-10-28 00:00:00 [facility] MED[facility] OFF[facility] BUILD[facility] 1.840.114 350.1.13.10 4.2.7.2.686 [id number] 044 [id number] [facility] 2022-10-28 00:00:00 2022-10-28 00:00:00 Orders Only Doctor Unassigned, Wells [facility] 1.84.114 350.1.13.10 4.2.7.2.686 [id number] [id number] [facility] 2022-10-26 13:40:00 2022-10-26 13:40:00 [facility] [id number] [facility] 2022-10-25 00:00:00 2022-10-25 00:00:00 Telephone Lindy [facility] JOHN?MALIKA [facility] 1.2840.114 350.1.13.10 4.2.7.2.686 [id number] 044 [id number] [facility] 2022-10-25 00:00:00 2022-10-25 00:00:00 [facility]ILD[facility] 1.2840.114 350.1.13.10 4.2.7.2.686 [id number] 044 [id number] [facility] 2022-10-19 10:30:00 2022-10-19 10:30:00 Outpatient R JAMSHID EARLY [facility] [id number] [facility] 2022-10-18 00:00:00 2022-10-18 00:00:00 [facility] 1.2840.114 350.1.13.10 4.2.7.2.686 [id number] 044 [id number] [facility] 2022-10-15 00:00:00 2022-10-15 00:00:00 Telephone Jamshid Early [facility] N[facility] BUILDING 1.2840.114 350.1.13.10 4.2.7.2.686 [id number] 059 [id number] [facility] 2022-10-15 00:00:00 2022-10-15 00:00:00 Orders Only Doctor Unassigned, Wells [facility] 1.2840.114 350.1.13.10 4.2.7.2.686 [id number] [id number] [facility] 2022-10-14 00:00:00 2022-10-14 00:00:00 [facility] 1.2.840.114 350.1.13.10 4.2.7.2.686 [id number] 044 [id number] [facility] 2022-10-13 00:00:00 2022-10-13 00:00:00 Refill Lindy [facility] JOHN?[facility] 1.2.840.114 350.1.13.10 4.2.7.2.686 [id number] 044 [id number] [facility] 2022-10-13 00:00:00 2022-10-13 00:00:00 Telephone Lindy [facility] JOHN?[facility] 1.2.840.114 350.1.13.10 4.2.7.2.686 [id number] 044 [id number] [facility] 2022-10-11 00:00:00 2022-10-11 00:00:00 Patient Outreach Robin Talia L [facility] JOHN?[facility] 1.2.840.114 350.1.13.10 4.2.7.2.686 [id number] 044 [id number] [facility] 2022-10-07 00:00:00 2022-10-07 00:00:00 Telephone [facility] 1.2.840.114 350.1.13.10 4.2.7.2.686 [id number] 044 [id number] [facility] 2022-09-30 00:00:00 2022-09-30 00:00:00 Telephone [facility] 1.2.840.114 350.1.13.10 4.2.7.2.686 [id number] 044 [id number] [facility] 2022-09-28 11:45:00 2022-09-28 12:13:52 American Board Certified Orthotist Visit Lab, Ang - Db Lindy [facility] 1.2.840.114 350.1.13.10 4.2.7.2.686 [id number] [facility] 2022-09-28 10:40:00 2022-09-28 11:44:33 Outpatient [facility] [id number] [facility] 2022-09-28 10:40:00 2022-09-28 11:44:33 Office Visit Lindy [facility] OFF[facility] 1.2.840.114 350.1.13.10 4.2.7.2.686 [id number] 044 [id number] [facility] 2022-09-28 00:00:00 2022-09-28 00:00:00 Patient Outreach Robin Talia Hilda [facility] 1.2.840.114 350.1.13.10 4.2.7.2.686 [id number] 044 [id number] [facility] 2022-09-28 00:00:00 2022-09-28 00:00:00 Orders Only Doctor Unassigned, Wells [facility] 1.2840.114 350.1.13.10 4.2.7.2.686 [id number] [id number] [facility] 2022-09-27 00:00:00 2022-09-27 00:00:00 Orders Only Doctor Unassigned, Wells [facility] 1.2840.114 350.1.13.10 4.2.7.2.686 [id number] 009 [id number] [facility] 2022-09-23 00:00:00 2022-09-23 00:00:00 Telephone Kley, [facility] 1.2840.114 350.1.13.10 4.2.7.2.686 [id number] 044 [id number] [facility] 2022-09-22 00:00:00 2022-09-22 00:00:00 Telephone Jamshid Early [facility] BUILDING 1.2840.114 350.1.13.10 4.2.7.2.686 [id number] 059 [id number] [facility] 2022-09-22 00:00:00 2022-09-22 00:00:00 Orders Only Doctor Unassigned, Wells [facility] 1.2.840.114 350.1.13.10 4.2.7.2.686 [id number] 009 [id number] [facility] 2022-09-18 00:00:00 2022-09-18 00:00:00 Orders Only Doctor Unassigned, Wells [facility] 1.2840.114 350.1.13.10 4.2.7.2.686 [id number] 009 [id number] [facility] 2022-09-13 11:22:44 2022-09-13 23:59:00 Outpatient R JAMSHID EARLY [facility] [id number] [facility] 2022-09-13 11:22:44 2022-09-13 23:59:00 Hospital Encounter Jamshid Early [facility] 1.2840.114 350.1.13.10 4.2.7.2.686 [id number] [facility] 2022-09-11 00:00:00 2022-09-11 00:00:00 Orders Only Doctor Unassigned, Wells [facility] 1.2.840.114 350.1.13.10 4.2.7.2.686 [id number] [id number] [facility] 2022-09-07 14:00:00 2022-09-07 14:53:27 Outpatient R JAMSHID EARLY [facility] [id number] [facility] 2022-09-07 14:00:00 2022-09-07 14:53:27 Office Visit Jamshid Early [facility] BUILDING 1.840.114 350.1.13.10 4.2.7.2.686 [id number] 059 [id number] [facility] 2022-09-07 00:00:00 2022-09-07 00:00:00 [facility] 1.84.114 350.1.13.10 4.2.7.2.686 [id number] 044 [id number] [facility] 2022-09-07 00:00:00 2022-09-07 00:00:00 Orders Only Doctor Unassigned, Wells [facility] 1.840.114 350.1.13.10 4.2.7.2.686 [id number] [facility] 2022-09-02 00:00:00 2022-09-02 00:00:00 Telephone Seraallison [facility] JOHN?[facility] 1.840.114 350.1.13.10 4.2.7.2.686 [id number] 044 [id number] [facility] 2022-09-02 00:00:00 2022-09-02 00:00:00 Telephone Lindy [facility] BUILDING 1.840.114 350.1.13.10 4.2.7.2.686 [id number] 044 [id number] [facility] 2022-09-01 00:00:00 2022-09-01 00:00:00 Refill Seraallison [facility] JOHN?[facility] 1.0.114 350.1.13.10 4.2.7.2.686 [id number] 044 [id number] [facility] 2022-08-31 10:40:00 2022-08-31 11:30:07 Outpatient R LINDY [facility] [id number] [facility] 2022-08-31 10:40:00 2022-08-31 11:30:07 [facility] 1.840.114 350.1.13.10 4.2.7.2.686 [id number] 044 [id number] [facility] 2022-08-30 11:45:00 2022-08-30 13:43:33 Office Visit Misa Ceballos [facility] 1.840.114 350.1.13.10 4.2.7.2.686 [id number] [facility] 2022-08-30 11:45:00 2022-08-30 11:45:00 Outpatient R MISA CEBALLOS [facility] [id number] [facility] 2022-08-25 00:00:00 2022-08-25 00:00:00 [facility] OFF[facility] BUILD[facility] 1.840.114 350.1.13.10 4.2.7.2.686 [id number] 044 [id number] [facility] 2022-08-16 00:00:00 2022-08-16 00:00:00 Telephone Lindy [facility] JOHN?[facility] OFFICE BUILDING 1.840.114 350.1.13.10 4.2.7.2.686 [id number] 044 [id number] [facility] 2022-08-13 10:30:00 2022-08-13 11:59:43 Outpatient R MICHOACANO WILKES SHIWAN [facility] [id number] [facility] 2022-08-13 10:30:00 2022-08-13 11:59:43 Office Visit Michoacano Wilkes [facility] N[facility] BUILDING 1.2.840.114 350.1.13.10 4.2.7.2.686 [id number] [facility] 2022-08-11 00:00:00 2022-08-11 00:00:00 Refill Lindy [facility] JOHN?[facility] MED[facility] OFF[facility] BUILDING 1.2.840.114 350.1.13.10 4.2.7.2.686 [id number] 044 [id number] [facility] 2022-08-05 00:00:00 2022-08-05 00:00:00 Telephone Lindy [facility] 1.2.840.114 350.1.13.10 4.2.7.2.686 [id number] 044 [id number] [facility] 2022-08-03 00:00:00 2022-08-03 00:00:00 [facility] 1.2.840.114 350.1.13.10 4.2.7.2.686 [id number] 044 [id number] [facility] 2022-08-03 00:00:00 2022-08-03 00:00:00 Orders Only Doctor Unassigned, Wells [facility] 1.2.840.114 350.1.13.10 4.2.7.2.686 [id number] [facility] 2022-07-30 11:20:00 2022-07-30 12:10:00 Out[facility] R [facility] [id number] [facility] 2022-07-30 11:20:00 2022-07-30 12:10:00 Office Visit Kley, [facility] JOHN?[facility]A [facility] BUILD[facility] 1..840.114 350.1.13.10 4.2.7.2.686 [id number] 044 [id number] [facility] 2022-07-30 00:00:00 2022-07-30 00:00:00 Refill Erick Larios [facility] 1.84.114 350.1.13.10 4.2.7.2.686 [id number] [facility] 2022-07-20 14:20:00 2022-07-20 15:53:29 Outpatient R MARYCARMEN ROJAS [facility] [id number] [facility] 2022-07-20 14:20:00 2022-07-20 15:00:00 Office Visit Marycarmen Rojas [facility] 1.840.114 350.1.13.10 4.2.7.2.686 [id number] [facility] 2022-07-15 11:53:14 2022-07-15 23:59:00 Outpatient R BRIAN ISRAEL [facility] [id number] [facility] 2022-07-15 11:00:00 2022-07-15 13:05:09 Office Visit Lindy [facility] JOHN?MALIKA [facility] MEDICAL OFFICE BUILDING 1..840.114 350.1.13.10 4.2.7.2.686 [id number] 044 [id number] [facility] 2022-07-14 00:00:00 2022-07-14 00:00:00 Telephone Lindy [facility] JOHN?MALIKA [facility] MEDICAL OFFICE BUILDING 1..840.114 350.1.13.10 4.2.7.2.686 [id number] 044 [id number] [facility] 2022-07-07 11:00:00 2022-07-07 11:00:00 Outpatient R HARRIETERICK HARRIET, ERICK [facility] [id number] [facility] 2022-07-07 00:00:00 2022-07-07 00:00:00 Transition of Care Bridgette Black 1.2.840.114 350.1.13.10 4.2.7.2.686 [id number] [facility] 2022-06-26 11:39:00 2022-07-05 17:22:00 Inpatient X [facility] [id number] [facility] 2022-06-26 11:39:00 2022-07-05 17:22:00 Hospital Encounter Ramírez Culp, Patel Jarvis, Bladimir Fajardo [facility] 1..840.114 350.1.13.10 4.2.7.2.686 [id number] [facility] 2022-06-08 10:40:00 2022-06-08 11:00:15 Outpatient R SERAAllison [facility] [id number] [facility] 2022-06-08 10:40:00 2022-06-08 11:00:15 Office Visit Lindy [facility]?MALIKA [facility] MEDICAL OFFICE BUILDING 1..840.114 350.1.13.10 4.2.7.2.686 [id number] 044 [id number] [facility] 2022-06-08 00:00:00 2022-06-08 00:00:00 [facility]phone [facility] MED[facility] OFF[facility] BUILDING 1..840.114 350.1.13.10 4.2.7.2.686 [id number] 044 [id number] [facility] 2022-06-01 11:45:00 2022-06-01 12:08:31 Outpatient R MISA CEBALLOS [facility] [id number] [facility] 2022-06-01 11:45:00 2022-06-01 12:08:31 Office Visit Javon Ceballosuwat[place] Ann [facility] 1.2840.114 350.1.13.10 4.2.7.2.686 [id number] [facility] 2022-05-31 00:00:00 2022-05-31 00:00:00 Telephone Lindy [facility] JOHN?MALIKA [facility] MEDICAL OFFICE BUILDING 1.2840.114 350.1.13.10 4.2.7.2.686 [id number] 044 [id number] [facility] 2022-05-24 00:00:00 2022-05-24 00:00:00 Telephone Lindy [facility] JOHN?MALIKA [facility] MEDICAL OFFICE BUILDING 1.2840.114 350.1.13.10 4.2.7.2.686 [id number] 044 [id number] [facility] 2022-05-24 00:00:00 2022-05-24 00:00:00 Telephone Lindy [facility] JOHN?MALIKA [facility] MEDICAL OFFICE BUILDING 1.2840.114 350.1.13.10 4.2.7.2.686 [id number] 044 [id number] [facility] 2022-05-22 00:00:00 2022-05-22 00:00:00 Refill Lindy [facility] JOHN?[facility] OFF[facility] BUILDING 1.2840.114 350.1.13.10 4.2.7.2.686 [id number] [id number] [facility] 2022-05-20 00:00:00 2022-05-20 00:00:00 Orders Only Doctor Unassigned, Wells [facility] 1.2840.114 350.1.13.10 4.2.7.2.686 [id number] [facility] 2022-05-18 11:00:00 2022-05-18 11:00:00 Outpatient R LINDY [facility] [id number] [facility] 2022-05-14 00:00:00 2022-05-14 00:00:00 Telephone Lindy [facility] JOHN?[facility] MED[facility] OFF[facility] BUILD[facility] 1.2.840.114 350.1.13.10 4.2.7.2.686 [id number] 044 [id number] [facility] 2022-05-12 00:00:00 2022-05-12 00:00:00 Patient Outreach Sterlingseth Nehal [facility] 1.2.840.114 350.1.13.10 4.2.7.2.686 [id number] 044 [id number] [facility] 2022-05-11 00:00:00 2022-05-11 00:00:00 Telephone Marycarmen Rojas [facility] MEDICAL OFFICE BUILDING 1.840.114 350.1.13.10 4.2.7.2.686 [id number] [facility] 2022-05-10 13:40:00 2022-05-10 15:15:11 [facility] 1.2840.114 350.1.13.10 4.2.7.2.686 [id number] [facility] 2022-05-10 11:30:00 2022-05-10 11:45:00 American Board Certified Orthotist Visit 2, Adc Lab Sushil Persaud Sonia L [facility] 1.284.114 350.1.13.10 4.2.7.2.686 [id number] [facility] 2022-05-10 10:40:00 2022-05-10 11:19:43 Outpatient R CRYSTAL MARYCARMEN [facility] [id number] [facility] 2022-05-10 10:40:00 2022-05-10 11:19:43 Office Visit Crystal Marycarmen Stevens [facility] 1.2.840.114 350.1.13.10 4.2.7.2.686 [id number] [facility] 2022-05-10 00:00:00 2022-05-10 00:00:00 [facility] 1.2.840.114 350.1.13.10 4.2.7.2.686 [id number] [facility] 2022-05-10 00:00:00 2022-05-10 00:00:00 Orders Only Doctor Unassigned, Wells [facility] 1.2840.114 350.1.13.10 4.2.7.2.686 [id number] [facility] 2022-05-07 00:00:00 2022-05-07 00:00:00 Telephone [facility] 1.2.840.114 350.1.13.10 4.2.7.2.686 [id number] [facility] 2022-05-04 11:15:00 2022-05-04 11:15:00 Outpatient R MISA CEBALLOS [facility] [id number] [facility] 2022-05-03 00:00:00 2022-05-03 00:00:00 Orders Only Doctor Unassigned, Wells [facility] 1.2840.114 350.1.13.10 4.2.7.2.686 [id number] [facility] 2022-05-01 00:00:00 2022-05-01 00:00:00 Patient Secure Msg Doctor Unassigned, Wells [facility] 1.840.114 350.1.13.10 4.2.7.2.686 [id number] [facility] 2022-04-29 10:40:00 2022-04-29 11:39:00 Outpatient R LINDY [facility] [id number] [facility] 2022-04-29 10:40:00 2022-04-29 11:39:00 Office Visit Lindy [facility] 1.840.114 350.1.13.10 4.2.7.2.686 [id number] [id number] [facility] 2022-04-27 00:00:00 2022-04-27 00:00:00 Refill Lindy [facility] 1.84.114 350.1.13.10 4.2.7.2.686 [id number] [facility] 2022-04-23 00:00:00 2022-04-23 00:00:00 Telephone Sushil Persaud [facility] 1..840.114 350.1.13.10 4.2.7.2.686 [id number] [facility] 2022-04-22 09:43:20 2022-04-22 23:59:00 Outpatient R LINDY [facility] [id number] [facility] 2022-04-22 10:15:00 2022-04-22 10:30:00 American Board Certified Orthotist Visit Lab, Cameron Early Lindy [facility] 1.2.840.114 350.1.13.10 4.2.7.2.686 [id number] [facility] 2022-04-22 09:00:00 2022-04-22 09:39:36 Office Visit Brian Israel [facility] JOHN?[facility] 1.2.840.114 350.1.13.10 4.2.7.2.686 [id number] [facility] 2022-04-20 00:00:00 2022-04-20 00:00:00 Telephone Brian Israel [facility] JOHN?[facility] 1.2.840.114 350.1.13.10 4.2.7.2.686 [id number] [id number] [facility] 2022-04-14 00:00:00 2022-04-14 00:00:00 Telephone Erick Larios [facility] JOHN?[facility] 1.2.840.114 350.1.13.10 4.2.7.2.686 [id number] [facility] 2022-04-12 00:00:00 2022-04-12 00:00:00 Refill Lindy [facility] JOHN?[facility] 1.2.840.114 350.1.13.10 4.2.7.2.686 [id number] [facility] 2022-04-09 00:00:00 2022-04-09 00:00:00 Telephone Marycarmen Rojas [facility] NAL BUILDING 1.2.840.114 350.1.13.10 4.2.7.2.686 [id number] [facility] 2022-04-08 00:00:00 2022-04-08 00:00:00 Telephone Marycarmen Rojas [facility] NAL BUILDING 1.2.840.114 350.1.13.10 4.2.7.2.686 [id number] [facility] 2022-04-07 13:45:00 2022-04-07 14:00:00 American Board Certified Orthotist Visit 2, Adc Lab Marycarmen Rojas [facility] 1.2840.114 350.1.13.10 4.2.7.2.686 [id number] [facility] 2022-04-07 11:20:00 2022-04-07 12:19:13 Outpatient R MARYCARMEN ROJAS [facility] [id number] [facility] 2022-04-07 11:20:00 2022-04-07 12:19:13 Office Visit Marycarmen Rojas [facility] 1.2840.114 350.1.13.10 4.2.7.2.686 [id number] [facility] 2022-04-07 00:00:00 2022-04-07 00:00:00 Orders Only Doctor Unassigned, Wells [facility] 1.20.114 350.1.13.10 4.2.7.2.686 [id number] [facility] 2022-04-07 00:00:00 2022-04-07 00:00:00 Patient Secure Msg Doctor Unassigned, Wells [facility] 1.2840.114 350.1.13.10 4.2.7.2.686 [id number] [facility] 2022-03-29 13:30:00 2022-03-29 14:49:53 Outpatient R ERICK LARIOS YU [facility] [id number] [facility] 2022-03-29 13:30:00 2022-03-29 14:49:53 Office Visit Erick Larios [facility] JOHN?[facility] 1.2840.114 350.1.13.10 4.2.7.2.686 [id number] [facility] 2022-03-29 12:15:00 2022-03-29 12:30:00 American Board Certified Orthotist Visit Lab, Ang - Db Lindy [facility] 1.84.114 350.1.13.10 4.2.7.2.686 [id number] [facility] 2022-03-25 11:00:00 2022-03-25 12:02:29 Outpatient R LINDY [facility] [id number] [facility] 2022-03-25 11:00:00 2022-03-25 12:02:29 Office Visit Lindy [facility] 1.84.114 350.1.13.10 4.2.7.2.686 [id number] [facility] 2022-03-25 11:00:00 2022-03-25 11:00:00 Outpatient R LINDY [facility] [id number] [facility] 2022-03-25 00:00:00 2022-03-25 00:00:00 Refill Lindy [facility] 1.84114 350.1.13.10 4.2.7.2.686 [id number] [facility] 2022-03-24 00:00:00 2022-03-24 00:00:00 Orders Only Doctor Unassigned, Wells [facility] 1.114 350.1.13.10 4.2.7.2.686 [id number] [facility] 2022-03-23 00:00:00 2022-03-23 00:00:00 Refill Lindy [facility] 1.84114 350.1.13.10 4.2.7.2.686 [id number] [id number] [facility] 2022-03-23 00:00:00 2022-03-23 00:00:00 [facility] 1.2840.114 350.1.13.10 4.2.7.2.686 [id number] [facility] 2022-03-16 10:40:00 2022-03-16 11:45:06 Outpatient R XENIA LOMELI [facility] [id number] [facility] 2022-03-16 10:40:00 2022-03-16 11:45:06 Office Visit Xenia Lomeli [facility] BUILD[facility] 1.2840.114 350.1.13.10 4.2.7.2.686 [id number] [facility] 2022-03-16 10:40:00 2022-03-16 10:40:00 Outpatient R ARMANI INGEGORDO [facility] [id number] [facility] 2022-03-16 00:00:00 2022-03-16 00:00:00 Orders Only Doctor Unassigned, Wells [facility] 1.2840.114 350.1.13.10 4.2.7.2.686 [id number] [facility] 2022-03-15 00:00:00 2022-03-15 00:00:00 [facility] MED[facility] OFF[facility] BU[facility] 1.20.114 350.1.13.10 4.2.7.2.686 [id number] [id number] [facility] 2022-02-25 08:00:00 2022-02-25 09:13:51 Office Visit Lindy [facility] JOHN?MALIKA [facility] MEDICAL OFFICE BUILDING 1.2840.114 350.1.13.10 4.2.7.2.686 [id number] [facility] 2022-02-25 08:00:00 2022-02-25 09:13:51 Outpatient R LINDY [facility] [id number] [facility] 2022-02-25 00:00:00 2022-02-25 00:00:00 Orders Only Doctor Unassigned, Wells [facility] 1.0.114 350.1.13.10 4.2.7.2.686 [id number] [facility] 2022-02-24 00:00:00 2022-02-24 00:00:00 Abstract Lindy [facility] 1..114 350.1.13.10 4.2.7.2.686 [id number] [facility] 2022-02-22 00:00:00 2022-02-22 00:00:00 Transition of Care Bridgette Black [facility] 1..114 350.1.13.10 4.2.7.2.686 [id number] [facility] 2022-02-05 19:22:00 2022-02-20 12:17:00 Inpatient X [facility]AD[facility]IR [facility]O [facility] [id number] [facility] 2022-02-05 19:22:00 2022-02-20 12:17:00 Hospital Encounter Jovany Bronson, Jason Alvarenga, Bladimir Mondragon [facility] 1..114 350.1.13.10 4.2.7.2.686 [id number] [facility] 2022-02-05 00:00:00 2022-02-05 00:00:00 Telephone Lindy [facility] 1..114 350.1.13.10 4.2.7.2.686 [id number] [id number] [facility] 2022-02-03 00:00:00 2022-02-03 00:00:00 [facility] 1..840.114 350.1.13.10 4.2.7.2.686 [id number] [id number] [facility] 2022-02-01 13:00:00 2022-02-01 14:09:10 Office Visit Lindy [facility] JOHN?[facility] 1.840.114 350.1.13.10 4.2.7.2.686 [id number] [facility] 2022-02-01 13:00:00 2022-02-01 14:09:10 [facility] [id number] [facility] 2022-02-01 13:00:00 2022-02-01 13:00:00 Outpatient R LINDY [facility] [id number] [facility] 2022-02-01 13:00:00 2022-02-01 13:00:00 Outpatient R LINDY [facility] [id number] [facility] 2022-02-01 13:00:00 2022-02-01 13:00:00 Outpatient R LINDY [facility] [id number] [facility] 2022-02-01 00:00:00 2022-02-01 00:00:00 Abstract Lindy [facility] JOHN?[facility] 1..840.114 350.1.13.10 4.2.7.2.686 [id number] [facility] 2022-02-01 00:00:00 2022-02-01 00:00:00 Refill Lindy [facility] JOHN?[facility] 1.840.114 350.1.13.10 4.2.7.2.686 [id number] [facility] 2022-02-01 00:00:00 2022-02-01 00:00:00 Telephone Les [facility]yas [facility] 1.2.840.114 350.1.13.10 4.2.7.2.686 [id number] [facility] 2022-01-29 10:00:00 2022-01-29 11:30:13 Outpatient R LES VYAS [facility] [id number] [facility] 2022-01-29 10:00:00 2022-01-29 11:30:13 [facility] 1.2840.114 350.1.13.10 4.2.7.2.686 [id number] 044 [id number] [facility] 2022-01-29 00:00:00 2022-01-29 00:00:00 Abstract [facility] 1.2840.114 350.1.13.10 4.2.7.2.686 [id number] [id number] [facility] 2022-01-29 00:00:00 2022-01-29 00:00:00 [facility] 1.2840.114 350.1.13.10 4.2.7.2.686 [id number] [facility] 2022-01-25 00:00:00 2022-01-25 00:00:00 Orders Only Doctor Unassigned, Wells [facility] 1.2840.114 350.1.13.10 4.2.7.2.686 [id number] [facility] 2022-01-21 00:00:00 2022-01-21 00:00:00 Telephone Piper Goddard [facility] 1.2.840.114 350.1.13.10 4.2.7.2.686 [id number] [facility] 2022-01-11 11:15:00 2022-01-11 11:15:00 Outpatient R CONSTANCE STONE [facility] [id number] [facility] 2022-01-05 13:45:00 2022-01-05 14:25:22 Outpatient R PHILIPPE LARSEN [facility] [id number] [facility] 2022-01-05 13:45:00 2022-01-05 14:25:22 Ancillary Visit Pavithra Rachel Craig [facility] 1.2.840.114 350.1.13.10 4.2.7.2.686 [id number] [facility] 2021-12-24 13:45:00 2021-12-24 14:45:00 Ancillary Visit Pavithra Rachel Craig [facility] 1.2.840.114 350.1.13.10 4.2.7.2.686 [id number] [facility] 2021-12-24 13:45:00 2021-12-24 13:45:00 Outpatient R PHILIPPE LARSEN [facility] [id number] [facility] 2021-12-24 10:08:03 2021-12-24 10:46:00 Outpatient R GARY MCKAY [facility] [id number] [facility] 2021-12-24 00:00:00 2021-12-24 00:00:00 Outpatient R GARY MCKAY [facility] [id number] [facility] 2021-12-24 00:00:00 2021-12-24 00:00:00 Telephone Constance Stone [facility] 1.2.0.114 350.1.13.10 4.2.7.2.686 [id number] [facility] 2021-12-22 13:45:00 2021-12-22 14:45:00 Ancillary Visit Pavithra Rachel Craig L [facility] 1.20.114 350.1.13.10 4.2.7.2.686 [id number] 179 [id number] [facility] 2021-12-17 14:00:00 2021-12-17 15:16:30 Office Visit Gary Mckay [facility] 1.2.840.114 350.1.13.10 4.2.7.2.686 [id number] [facility] 2021-12-17 14:00:00 2021-12-17 15:16:30 Outpatient R TAHIR MCKAYRIQUE [facility] [id number] [facility] 2021-12-17 14:00:00 2021-12-17 14:00:00 Outpatient R TAHIR MCKAYRIQUE [facility] [id number] [facility] 2021-12-17 00:00:00 2021-12-17 00:00:00 Telephone Piper Goddard [facility] 1.2.114 350.1.13.10 4.2.7.2.686 [id number] [facility] 2021-12-16 13:45:00 2021-12-16 14:45:00 Ancillary Visit Pavithra Rachel Craig L [facility] 1.284.114 350.1.13.10 4.2.7.2.686 [id number] [facility] 2021-12-16 13:45:00 2021-12-16 13:45:00 Outpatient R PHILIPPE LARSEN [facility] [id number] [facility] 2021-12-14 10:45:00 2021-12-14 10:45:00 Outpatient CONSTANCE THOMPSON [facility] [id number] [facility] 2021-12-14 10:45:00 2021-12-14 10:45:00 Outpatient CONSTANCE THOMPSON [facility] [id number] [facility] 2021-12-14 10:45:00 2021-12-14 10:45:00 Outpatient CONTSANCE THOMPSON [facility] [id number] [facility] 2021-12-10 13:00:00 2021-12-10 14:00:00 Ancillary Visit Pavithra [facility] 1.2.840.114 350.1.13.10 4.2.7.2.686 [id number] [facility] 2021-12-10 13:00:00 2021-12-10 13:00:00 Outpatient PHILIPPE LYNCH [facility] [id number] [facility] 2021-12-10 01:16:00 2021-12-10 01:16:00 Outpatient JOSH [facility] [id number] [facility] 2021-12-10 00:00:00 2021-12-10 00:00:00 Armand Ball, DO: [address], [place] [address] , Ph. [facility] - [facility], [address] BALL [id number] [facility]ospita [facility] Clinics 2021-12-10 00:00:00 2021-12-10 00:00:00 Outpatient Armand Ball [facility] [id number] 2021-12-08 13:00:00 2021-12-08 15:35:22 Outpatient R GABRIELE LARSENIG [facility] [id number] [facility] 2021-12-08 13:00:00 2021-12-08 15:35:22 Ancillary Visit Wilson Philippe Fenton [facility] 1.2.840.114 350.1.13.10 4.2.7.2.686 [id number] 179 [id number] [facility] 2021-12-04 15:15:00 2021-12-04 16:23:35 Ancillary Visit Wilson [facility] 1.2.840.114 350.1.13.10 4.2.7.2.686 [id number] [facility] 2021-12-02 09:30:00 2021-12-02 10:30:00 Ancillary Visit Pavithra Rachel Craig L [facility] 1.2.840.114 350.1.13.10 4.2.7.2.686 [id number] [facility] 2021-11-24 14:30:00 2021-11-24 15:35:05 Ancillary Visit Pavithra Rachel Craig L [facility] 1.2.840.114 350.1.13.10 4.2.7.2.686 [id number] [facility] 2021-11-20 14:30:00 2021-11-20 15:30:00 Ancillary Visit Pavithra Rachel Craig L [facility] 1.2.840.114 350.1.13.10 4.2.7.2.686 [id number] 179 [id number] [facility] 2021-11-18 13:45:00 2021-11-18 14:45:00 Ancillary Visit Pavithra Rachel [facility] 1.2.840.114 350.1.13.10 4.2.7.2.686 [id number] 179 [id number] [facility] 2021-11-13 10:15:00 2021-11-13 11:00:00 Ancillary Visit Pavithra Rachel Craig L [facility] 1.2.840.114 350.1.13.10 4.2.7.2.686 [id number] [facility] 2021-11-10 09:30:00 2021-11-10 10:15:00 Ancillary Visit Pavithra Rachel Craig L [facility] 1.2.840.114 350.1.13.10 4.2.7.2.686 [id number] [facility] 2021-11-06 15:15:00 2021-11-06 16:00:00 Ancillary Visit Pavithra Rachel Craig L [facility] 1.2.840.114 350.1.13.10 4.2.7.2.686 [id number] [facility] 2021-11-04 11:00:00 2021-11-04 14:47:26 Outpatient R PHILIPPE LARSEN [facility] [id number] [facility] 2021-11-04 11:00:00 2021-11-04 14:47:26 Ancillary Visit Pavithra Rachel Craig L [facility] 1.2.840.114 350.1.13.10 4.2.7.2.686 [id number] 179 [id number] [facility] 2021-10-28 14:30:00 2021-10-28 15:30:00 Ancillary Visit Pavithra Rachel Craig L [facility] 1.2.840.114 350.1.13.10 4.2.7.2.686 [id number] [facility] 2021-10-27 00:00:00 2021-10-27 00:00:00 Transition of Care Bridgette Black 1.840.114 350.1.13.10 4.2.7.2.686 [id number] [facility] 2021-10-26 11:47:00 2021-10-26 11:47:00 Outpatient ERUCHEON_R [facility] [id number] [place] [facility] 2021-10-26 00:00:00 2021-10-26 00:00:00 Patient Secure Msg Doctor Unassigned, Wells [facility] 1.840.114 350.1.13.10 4.2.7.2.686 [id number] [facility] 2021-10-22 11:29:00 2021-10-25 12:30:00 Inpatient X APOLLO REESE [facility] [id number] [facility] 2021-10-22 11:29:00 2021-10-25 12:30:00 Hospital Encounter Randi Richardson Vinod P [facility] 1.840.114 350.1.13.10 4.2.7.2.686 [id number] [facility] 2021-10-07 13:00:00 2021-10-07 13:00:00 Outpatient PHILIPPE LYNCH [facility] [id number] [facility] 2021-10-07 13:00:00 2021-10-07 13:00:00 Outpatient PHILIPPE LYNCH [facility] [id number] [facility] 2021-09-30 10:00:00 2021-09-30 10:30:00 Office Visit Case, [facility] 1.114 350.1.13.10 4.2.7.2.686 [id number] [facility] 2021-09-30 10:00:00 2021-09-30 10:00:00 Outpatient R CLAY CASE [facility] [id number] [facility] 2021-09-30 00:00:00 2021-09-30 00:00:00 Telephone Sebastian [facility] 1..114 350.1.13.10 4.2.7.2.686 [id number] [facility] 2021-09-30 00:00:00 2021-09-30 00:00:00 Orders Only Doctor Unassigned, Wells [facility] 1.84.114 350.1.13.10 4.2.7.2.686 [id number] [facility] 2021-09-29 10:15:00 2021-09-29 11:38:54 Outpatient PHILIPPE LYNCH [facility] [id number] [facility] 2021-09-16 13:45:00 2021-09-16 16:59:28 Ancillary Visit Arlet Schwartz Craig L [facility] 1.840.114 350.1.13.10 4.2.7.2.686 [id number] [facility] 2021-09-16 13:45:00 2021-09-16 16:59:28 Outpatient PHILIPPE LYNCH [facility] [id number] [facility] 2021-09-16 13:45:00 2021-09-16 13:45:00 Outpatient PHILIPPE LYNCH [facility] [id number] [facility] 2021-09-16 00:00:00 2021-09-16 00:00:00 Case Management Arlet Schwartz [facility] 1.2.840.114 350.1.13.10 4.2.7.2.686 [id number] [facility] 2021-09-01 15:45:00 2021-09-01 16:00:00 Office Visit [facility] 1.2.840.114 350.1.13.10 4.2.7.2.686 [id number] [facility] 2021-09-01 15:45:00 2021-09-01 16:00:00 Office [facility] 1.2.840.114 350.1.13.10 4.2.7.2.686 [id number] [facility] 2021-09-01 15:45:00 2021-09-01 15:45:00 Outpatient R CONSTANCE STONE [facility] [id number] [facility] 2021-08-31 12:23:00 2021-08-31 12:23:00 Outpatient JOSH [facility] [id number] [facility] 2021-08-31 00:00:00 2021-08-31 00:00:00 Armand Ball, DO: [address] [facility], [place] [address] , Ph. [phone] [place] [address] - [facility] CL[facility], [address] BALL [id number] [facility]ita [facility] Clinics 2021-08-31 00:00:00 2021-08-31 00:00:00 Outpatient Armand Ball [facility] [id number] 2021-08-18 23:55:00 2021-08-29 11:50:00 Inpatient 3 [place] [id number] [facility] 2021-08-19 00:00:00 2021-08-19 00:00:00 Transition of Care Bridgette Black 1.114 350.1.13.10 4.2.7.2.686 [id number] [facility] 2021-08-17 13:55:00 2021-08-18 22:30:00 Outpatient X MONIQUE GALLO [facility] [id number] [facility] 2021-08-17 13:55:00 2021-08-18 22:30:00 Emergency Nj Lopez Erin Leigh [facility] 1.114 350.1.13.10 4.2.7.2.686 [id number] [facility] 2021-08-17 13:55:00 2021-08-18 22:30:00 Outpatient X MONIQUE GALLO [facility] [id number] [facility] 2021-08-11 10:00:00 2021-08-11 10:20:00 Office Visit Xenia Lomeli [facility] 1.114 350.1.13.10 4.2.7.2.686 [id number] [facility] 2021-08-11 10:00:00 2021-08-11 10:00:00 Outpatient XENIA BURKS [facility] [id number] [facility] 2021-08-11 10:00:00 2021-08-11 10:00:00 Outpatient XENIA BURKS [facility] [id number] [facility] 2021-08-04 00:00:00 2021-08-04 00:00:00 Orders Only Doctor Unassigned, Wells [facility] 1.114 350.1.13.10 4.2.7.2.686 [id number] [facility] 2021-07-30 12:23:00 2021-07-30 12:23:00 Outpatient JOSH [facility] [id number] [facility] 2021-07-30 00:00:00 2021-07-30 00:00:00 Armand Ball, DO: [address], [address], [place] [address] , Ph. [phone] [facility], DR. BALL [id number] [facility] 2021-07-30 00:00:00 2021-07-30 00:00:00 Outpatient Armand Ball [facility] [id number] 2021-07-27 00:00:00 2021-07-27 00:00:00 Telephone Natalio Vigil [facility] 1.840.114 350.1.13.10 4.2.7.2.686 [id number] [facility] 2021-07-23 00:00:00 2021-07-23 00:00:00 Transition of Care Bridgette Black [facility] 1.840.114 350.1.13.10 4.2.7.2.686 [id number] [facility] 2021-07-21 10:30:00 2021-07-21 10:30:00 Outpatient MISA JARAMILLO [facility] [id number] [facility] 2021-07-21 00:00:00 2021-07-21 00:00:00 Telephone Clay Case [facility] .840.114 350.1.13.10 4.2.7.2.686 [id number] [facility] 2021-07-14 12:36:00 2021-07-20 14:15:00 Inpatient X NATALIO VIGIL [facility] [id number] [facility] 2021-07-14 12:36:00 2021-07-20 14:15:00 Hospital Encounter See Fish Natalio Hinds, Lilly [facility] 1..840.114 350.1.13.10 4.2.7.2.686 [id number] [facility] 2021-06-25 11:32:00 2021-06-25 11:32:00 Outpatient ERICKSON_R [facility] [id number] [facility] 2021-06-04 03:56:00 2021-06-04 03:56:00 Outpatient ERICKSON_R [facility] [id number] 2021-06-01 10:15:00 2021-06-01 10:15:00 Outpatient R ASYA WALSH [facility] [id number] [facility] 2021-06-01 10:15:00 2021-06-01 10:15:00 Outpatient R ASYA WALSH [facility] [id number] [facility] 2021-05-26 15:30:00 2021-05-26 15:30:00 Outpatient R CONSTANCE STONE [facility] [id number] [facility] 2021-05-26 15:07:34 2021-05-26 15:22:34 Office Visit Constance Stone [facility] 1..840.114 350.1.13.10 4.2.7.2.686 [id number] [facility] 2021-05-26 11:22:00 2021-05-26 11:22:00 Outpatient ERICKSON_R [facility] [id number] [facility] 2021-05-26 00:00:00 2021-05-26 00:00:00 Telephone Xenia Lomeli BUILD[facility] 1.2.840.114 350.1.13.10 4.2.7.2.686 [id number] [facility] 2021-05-26 00:00:00 2021-05-26 00:00:00 Orders Only Doctor Unassigned, Wells [facility] 1.2.840.114 350.1.13.10 4.2.7.2.686 [id number] [facility] 2021-05-21 15:00:00 2021-05-21 16:29:05 Office Visit Xenia Lomeli 1.2.840.114 350.1.13.10 4.2.7.2.686 [id number] [facility] 2021-05-21 15:00:00 2021-05-21 16:29:05 Outpatient R ARMANIXENIA [facility] [id number] [facility] 2021-05-21 15:00:00 2021-05-21 15:00:00 Outpatient R ARMANI XENIA [facility] [id number] [facility] 2021-05-19 13:55:32 2021-05-19 14:36:21 Office Visit Misa Ceballos [facility] 1.2.840.114 350.1.13.10 4.2.7.2.686 [id number] [facility] 2021-05-19 13:55:00 2021-05-19 14:36:21 Outpatient R MISA CEBALLOS [facility] [id number] [facility] 2021-05-19 13:55:00 2021-05-19 14:36:21 Outpatient R MISA CEBALLOS [facility] [id number] [facility] 2021-05-18 02:16:00 2021-05-18 02:16:00 Outpatient ERUCHEON_R [facility] [id number] [facility] 2021-05-18 00:00:00 2021-05-18 00:00:00 Outpatient Armand Ball [facility] [id number] 2021-05-18 00:00:00 2021-05-18 00:00:00 Armand Ball, DO: [address], [place] [address] , Ph. [facility] - [facility], DR. BALL [id number] [facility] 2021-05-15 10:45:00 2021-05-15 10:45:00 Outpatient R MISA CEBALLOS [facility] [id number] [facility] 2021-05-12 11:40:00 2021-05-12 11:40:00 Outpatient R XENIA LOMELI [facility] [id number] [facility] 2021-05-11 10:00:00 2021-05-11 10:00:00 Outpatient R [facility] [id number] [facility] 2021-04-20 15:07:35 2021-04-20 16:31:53 Office Visit Gary Mckay R [facility] 1.2.840.114 350.1.13.10 4.2.7.2.686 [id number] [facility] [id number] [facility] 2021-04-20 15:30:00 2021-04-20 15:30:00 Outpatient R GARY MCKAY [facility] [id number] [facility] 2021-04-13 12:29:00 2021-04-13 12:29:00 Outpatient ERICKSON_R [facility] [id number] [facility] 2021-04-13 00:00:00 2021-04-13 00:00:00 Outpatient Armand Ball [facility] [id number] 2021-04-13 00:00:00 2021-04-13 00:00:00 Armand Ball, DO: [address], [facility] G, [place] [address] , Ph. [phone] [facility] - [facility] - [facility], [address]. BALL [id number] [facility] 2021-03-24 00:00:00 2021-03-24 00:00:00 Telephone Constance Stone [facility] 1..840.114 350.1.13.10 4.2.7.2.686 [id number] [facility] 2021-03-03 13:57:44 2021-03-03 23:59:00 Hospital Encounter Gary Mckay R [facility] 1..840.114 350.1.13.10 4.2.7.2.686 [id number] [facility] 2021-03-03 00:00:00 2021-03-03 00:00:00 Outpatient R GARY MCKAY [facility] [id number] [facility] 2021-02-26 15:00:00 2021-02-26 15:00:00 Outpatient R [facility] [id number] [facility] 2021-02-18 01:53:00 2021-02-18 01:53:00 Outpatient ERICKSON_R [facility] [id number] [facility] 2021-02-17 12:16:00 2021-02-17 12:16:00 Outpatient ERICKSON_R [facility] [id number] [facility] 2021-02-17 00:00:00 2021-02-17 00:00:00 Outpatient Armand Ball [facility] [id number] 2021-02-17 00:00:00 2021-02-17 00:00:00 Armand Ball, DO: [address], [place] [address] , Ph. [facility], DR. BALL [id number] [facility] 2021-02-16 11:45:00 2021-02-16 11:45:00 Outpatient CONSTANCE THOMPSON [facility] [id number] [facility] 2021-02-16 00:00:00 2021-02-16 00:00:00 Orders Only Doctor Unassigned, Wells [facility] 1..840.114 350.1.13.10 4.2.7.2.686 [id number] [facility] 2021-02-12 13:06:20 2021-02-12 15:02:25 Ancillary Visit Pavithra Rachel Craig L [facility] 1..840.114 350.1.13.10 4.2.7.2.686 [id number] [facility] 2021-01-13 12:56:00 2021-01-13 12:56:00 Outpatient QUINN_R [facility] [id number] [facility] 2021-01-13 00:00:00 2021-01-13 00:00:00 Armand Ball, DO: [address], [place] [address] , Ph. [facility], [address]. BALL [id number] [facility] 2021-01-13 00:00:00 2021-01-13 00:00:00 Outpatient Armand Ball [facility] [id number] 2021-01-05 11:30:00 2021-01-05 11:30:00 Outpatient R [facility] [id number] [facility] 2021-01-01 13:00:00 2021-01-01 13:00:00 Outpatient Diogenes PHILIPPE LARSEN [facility] [id number] [facility] 2020-12-02 08:00:00 2020-12-02 08:00:00 Outpatient Diogenes PHILIPPE LARSEN [facility] [id number] [facility] 2020-11-27 14:40:00 2020-11-27 14:40:00 Outpatient CONSTANCE THOMPSON [facility] [id number] [facility] 2020-11-27 02:06:00 2020-11-27 02:06:00 Outpatient NASIRLUIZA [facility] [id number] [facility] 2020-11-27 00:00:00 2020-11-27 00:00:00 Armand Ball, DO: [address], [facility], [place] [address] , Ph. [phone] [place] [address] - [facility], [address]. BALL [id number] [facility] 2020-11-27 00:00:00 2020-11-27 00:00:00 Outpatient Armand Ball [facility] [id number] 2020-11-25 10:30:00 2020-11-25 10:30:00 Outpatient CONSTANCE THOMPSON [facility] [id number] [facility] 2020-11-11 11:40:00 2020-11-11 11:40:00 Outpatient R XENIA LOMELI [facility] [id number] [facility] 2020-11-10 10:00:00 2020-11-10 10:00:00 Outpatient Diogenes CHUCHO RÍOS [facility] [id number] [facility] 2020-11-04 09:00:00 2020-11-04 09:00:00 Outpatient Diogenes CONSTANCE STONE [facility] [id number] [facility] 2020-10-30 11:59:00 2020-10-30 11:59:00 Outpatient ERCATALINO_R [facility] [id number] [facility] 2020-10-30 00:00:00 2020-10-30 00:00:00 Armand Ball, DO: [address] [place] [address] , Ph. [facility], [address] BALL [id number] [facility] 2020-10-30 00:00:00 2020-10-30 00:00:00 Outpatient Armand Ball [facility] [id number] 2020-10-09 03:22:00 2020-10-09 03:22:00 Outpatient JOSH [facility] [id number] [facility] 2020-10-09 00:00:00 2020-10-09 00:00:00 Armand Ball, DO: [address] [place] [address] , Ph. [phone] [facility], [address] [id number] [facility] 2020-10-09 00:00:00 2020-10-09 00:00:00 Outpatient Armand Ball [facility] [id number] 2020-10-08 10:55:05 2020-10-08 11:25:05 Office Visit Clay Case [facility] 1..840.114 350.1.13.10 4.2.7.2.686 [id number] [facility] 2020-10-08 11:00:00 2020-10-08 11:00:00 Outpatient R CLAY CASE [facility] [id number] [facility] 2020-09-09 12:52:00 2020-09-09 12:52:00 Outpatient ERICKSON_R [facility] [id number] [facility] 2020-09-09 00:00:00 2020-09-09 00:00:00 Outpatient Armand Ball [facility] [id number] 2020-09-09 00:00:00 2020-09-09 00:00:00 Armand Ball, DO: [address] , [place] [address] , Ph. [phone] [facility] - [facility] - [facility], [address] [id number] [facility] 2020-08-25 00:00:00 2020-08-25 00:00:00 Telephone Xenia Lomeli [facility] 1..840.114 350.1.13.10 4.2.7.2.686 [id number] [facility] 2020-08-12 11:41:00 2020-08-12 11:41:00 Outpatient ERICKSON_R [facility] [id number] [facility] 2020-08-07 12:43:00 2020-08-07 12:43:00 Outpatient ERICKSON_R [facility] [id number] [facility] 2020-08-07 00:00:00 2020-08-07 00:00:00 Outpatient Armand Ball [facility] [id number] 2020-08-07 00:00:00 2020-08-07 00:00:00 Armand Ball, DO: [address], [address], [place] [address] , Ph. [facility] - [facility] - [facility], [address] BALL [id number] [facility] 2020-08-04 10:49:00 2020-08-04 10:49:00 Outpatient ERICKSON_R [facility] [id number] [facility] 2020-07-15 11:40:00 2020-07-15 11:40:00 Outpatient XENIA BURKS [facility] [id number] [facility] 2020-07-15 08:17:25 2020-07-15 08:37:25 Telemedici ne Visit Xenia Lomeli [facility] 1..840.114 350.1.13.10 4.2.7.2.686 [id number] [facility] 2020-07-14 02:25:00 2020-07-14 02:25:00 Outpatient ERICKSON_R [facility] [id number] [facility] 2020-07-10 04:06:00 2020-07-10 04:06:00 Outpatient ERICKSON_R [facility] [id number] [facility] 2020-07-10 00:00:00 2020-07-10 00:00:00 Orders Only Doctor Unassigned, Wells [facility] 1..840.114 350.1.13.10 4.2.7.2.686 [id number] [facility] 2020-07-10 00:00:00 2020-07-10 00:00:00 Outpatient Armand Ball [facility] [id number] 2020-07-10 00:00:00 2020-07-10 00:00:00 Armand Ball, DO: [address], [place] [address] , Ph. [facility] - [facility] - [facility], DR[address] BALL [id number] [facility] 2020-07-09 11:05:04 2020-07-09 12:29:03 Office Visit Case, [facility] 1.840.114 350.1.13.10 4.2.7.2.686 [id number] [facility] 2020-07-09 11:30:00 2020-07-09 11:30:00 Outpatient CLAY SALGUERO [facility] [id number] [facility] 2020-07-01 12:34:00 2020-07-01 12:34:00 Outpatient QUINNCodyDiogenes [facility] [id number] [facility] 2020-06-19 00:00:00 2020-06-19 00:00:00 Telephone Case, [facility] 1.840.114 350.1.13.10 4.2.7.2.686 [id number] [facility] 2020-06-19 00:00:00 2020-06-19 00:00:00 Telephone Case, [facility] 1.840.114 350.1.13.10 4.2.7.2.686 [id number] [facility] 2020-04-25 00:00:00 2020-04-25 00:00:00 Telephone Xenia Lomeli [facility] 1.2.840.114 350.1.13.10 4.2.7.2.686 [id number] [facility] 2020-04-18 08:33:49 2020-04-18 10:11:45 Telemedici ne Visit Constance Stone [facility] K[facility] 1.2.840.114 350.1.13.10 4.2.7.2.686 [id number] [facility] 2020-04-18 08:30:00 2020-04-18 08:30:00 Outpatient R CONSTANCE STONE [facility] [id number] [facility] 2020-04-02 13:04:22 2020-04-02 14:11:31 Office Visit Clay Case [facility] 1.2.840.114 350.1.13.10 4.2.7.2.686 [id number] [facility] 2020-04-02 13:00:00 2020-04-02 13:00:00 Outpatient R CLAY CASE [facility] [id number] [facility] 2020-03-28 13:26:47 2020-03-28 13:46:47 Telemedici ne Visit Xenia Lomeli [facility] 1.2.840.114 350.1.13.10 4.2.7.2.686 [id number] [facility] 2020-03-28 09:00:00 2020-03-28 09:00:00 Outpatient R XENIA LOMELI [facility] [id number] [facility] 2020-03-21 08:00:00 2020-03-21 08:00:00 Outpatient R CONSTANCE STONE [facility] [id number] [facility] 2020-03-21 00:00:00 2020-03-21 00:00:00 Transition of Care Jacquelyn Delgado 1.2.840.114 350.1.13.10 4.2.7.2.686 [id number] [facility] 2020-03-21 00:00:00 2020-03-21 00:00:00 Refill Bartolome Haley [facility] 1.2.840.114 350.1.13.10 4.2.7.2.686 [id number] [facility] 2020-03-18 11:53:00 2020-03-20 17:30:00 Hospital Encounter Gavin Quesada Vinod P [facility] 1.2840.114 350.1.13.10 4.2.7.2.686 [id number] [facility] 2020-03-20 08:00:00 2020-03-20 08:00:00 Outpatient CHUCHO PHELPS JR [facility] [id number] [facility] 2020-03-14 18:40:00 2020-03-14 22:52:00 Emergency See [facility] 1.2.840.114 350.1.13.10 4.2.7.2.686 [id number] [facility] 2020-03-14 00:00:00 2020-03-14 00:00:00 Telephone Constance Stone [facility] [place] [facility] 1.2.840.114 350.1.13.10 4.2.7.2.686 [id number] [facility] 2020-02-14 08:30:29 2020-02-29 09:41:43 Office Visit Constance Stone [facility] 1.2.840.114 350.1.13.10 4.2.7.2.686 [id number] [facility] 2020-02-15 12:52:26 2020-02-18 11:43:28 American Board Certified Orthotist Visit [facility] Armani Ingegordo [facility] 1.2.840.114 350.1.13.10 4.2.7.2.686 [id number] [facility] 2020-02-15 11:01:17 2020-02-15 12:42:54 Office Visit Xenia Lomeli [facility] 1.2840.114 350.1.13.10 4.2.7.2.686 [id number] [facility] 2020-02-15 11:00:00 2020-02-15 11:00:00 Outpatient R INGE LOMELIGORDO [facility] [id number] [facility] 2020-02-15 00:00:00 2020-02-15 00:00:00 Orders Only Doctor Unassigned, Wells [facility] 1.2.840.114 350.1.13.10 4.2.7.2.686 [id number] [facility] 2020-02-14 10:45:54 2020-02-14 11:00:54 Laboratory Only Only, Adc Test Constance Stone [facility] 1.2.840.114 350.1.13.10 4.2.7.2.686 [id number] [facility] 2020-02-14 08:15:00 2020-02-14 08:15:00 [facility] [id number] [facility] 2020-02-13 16:29:00 2020-02-13 21:01:00 Emergency Lisa Obregon [facility] 1.2.840.114 350.1.13.10 4.2.7.2.686 [id number] [facility] 2020-02-13 00:00:00 2020-02-13 00:00:00 Orders Only Doctor Unassigned, Wells [facility] 1.2.840.114 350.1.13.10 4.2.7.2.686 [id number] [facility] 2020-02-08 00:00:00 2020-02-08 00:00:00 Refill [facility] 1.2.840.114 350.1.13.10 4.2.7.2.686 [id number] [facility] 2020-02-08 00:00:00 2020-02-08 00:00:00 Telephone Bertha Constance [facility] 1.2.840.114 350.1.13.10 4.2.7.2.686 [id number] [facility] 2020-01-18 08:06:02 2020-01-18 08:59:38 Office Visit Constance Stone [facility] 1.2.840.114 350.1.13.10 4.2.7.2.686 [id number] [facility] 2020-01-18 08:15:00 2020-01-18 08:15:00 Outpatient R CONSTANCE STONE [facility] [id number] [facility] 2020-01-11 10:15:00 2020-01-11 10:15:00 Outpatient R CONSTANCE STONE [facility] [id number] [facility] 2020-01-04 08:40:20 2020-01-11 07:46:14 Telemedici ne Visit Constance Stone [facility] Building 1.2.840.114 350.1.13.10 4.2.7.2.686 [id number] [facility] 2020-01-04 10:00:00 2020-01-04 10:00:00 Outpatient R CONSTANCE STONE [facility] [id number] [facility] 2019-09-27 08:40:46 2019-11-08 16:18:11 Telemedici ne Visit Constance Stone [facility] 1.2.840.114 350.1.13.10 4.2.7.2.686 [id number] [facility] 2019-11-02 08:14:39 2019-11-06 09:14:22 Telemedici ne Visit Constance Stone [facility] 1.2.840.114 350.1.13.10 4.2.7.2.686 [id number] [facility] 2019-11-02 10:15:00 2019-11-02 10:15:00 Outpatient R CONSTANCE STONE [facility] [id number] [facility] 2019-09-27 11:00:00 2019-09-27 11:00:00 Outpatient R CONSTANCE STONE [facility] [id number] [facility] 2019-09-18 10:10:43 2019-09-18 11:30:31 American Board Certified Orthotist Visit , [facility] Vascular Room - [facility] 1.2.840.114 350.1.13.10 4.2.7.2.686 [id number] [facility] 2019-09-18 10:11:01 2019-09-18 11:30:06 American Board Certified Orthotist Visit , [facility] 1 - [facility] 1.2.840.114 350.1.13.10 4.2.7.2.686 [id number] [facility] 2019-09-18 10:00:00 2019-09-18 10:00:00 Outpatient R [facility] [id number] [facility] 2019-08-31 00:00:00 2019-08-31 00:00:00 Telephone Ochoa Escamilla [facility] 1.2.840.114 350.1.13.10 4.2.7.2.686 [id number] [facility] 2019-08-28 00:00:00 2019-08-28 00:00:00 Telephone Ochoa Escamilla [facility] 1.2.840.114 350.1.13.10 4.2.7.2.686 [id number] [facility] 2019-08-28 00:00:00 2019-08-28 00:00:00 Refill Ochoa Escamilla [facility] 1.2.840.114 350.1.13.10 4.2.7.2.686 [id number] [facility] 2019-08-24 10:27:26 2019-08-24 12:24:08 Office Visit Constance Stone [facility] 1.2.840.114 350.1.13.10 4.2.7.2.686 [id number] [facility] 2019-08-21 00:00:00 2019-08-21 00:00:00 Telephone Ochoa Escamilla [facility] 1.2.840.114 350.1.13.10 4.2.7.2.686 [id number] [facility] 2019-08-21 00:00:00 2019-08-21 00:00:00 Orders Only Doctor Unassigned, Wells [facility] 1.2.840.114 350.1.13.10 4.2.7.2.686 [id number] [facility] 2019-08-21 00:00:00 2019-08-21 00:00:00 Letter (Out) Ochoa Escamilla [facility] 1.2.840.114 350.1.13.10 4.2.7.2.686 [id number] [facility] 2019-08-18 00:00:00 2019-08-18 00:00:00 Telephone Ochoa Escamilla [facility] 1.2.840.114 350.1.13.10 4.2.7.2.686 [id number] [facility] 2019-08-16 00:00:00 2019-08-16 00:00:00 Telephone Ochoa Escamilla [facility] 1.2.840.114 350.1.13.10 4.2.7.2.686 [id number] [facility] 2019-08-13 00:00:00 2019-08-13 00:00:00 Telephone Ochoa Escamilla [facility] 1.2.840.114 350.1.13.10 4.2.7.2.686 [id number] [id number] [facility] 2019-08-11 00:00:00 2019-08-11 00:00:00 Orders Only Doctor Unassigned, Wells [facility] 1.2.840.114 350.1.13.10 4.2.7.2.686 [id number] [facility] 2019-07-27 00:00:00 2019-07-27 00:00:00 Refill Jayden Mitchell [facility] 1.2.840.114 350.1.13.10 4.2.7.2.686 [id number] [facility] 2019-03-15 00:00:00 2019-03-15 00:00:00 Refill Stephen Lucilajose [facility] 1.2.840.114 350.1.13.10 4.2.7.2.686 [id number] 220 [id number] [facility] 2019-03-15 00:00:00 2019-03-15 00:00:00 Orders Only Doctor Unassigned, [place] [facility] 1.2.840.114 350.1.13.10 4.2.7.2.686 [id number] [facility] 2019-03-14 00:00:00 2019-03-14 00:00:00 Telephone Ochoa Escamilla [facility] 1.2.840.114 350.1.13.10 4.2.7.2.686 [id number] [facility] 2019-02-02 09:26:59 2019-03-02 15:02:45 Office Visit Ochoa Escamilla [facility] 1.2.840.114 350.1.13.10 4.2.7.2.686 [id number] 231 [id number] [facility] 2019-02-28 00:00:00 2019-02-28 00:00:00 Telephone Ochoa Escamilla [facility] Building 1.2.840.114 350.1.13.10 4.2.7.2.686 [id number] [id number] [facility] 2019-02-20 10:56:36 2019-02-20 11:40:54 Office Visit Jayden Mitchell [facility] Building 1.2.840.114 350.1.13.10 4.2.7.2.686 [id number] [facility] 2019-02-20 00:00:00 2019-02-20 00:00:00 Orders Only Doctor Unassigned, Wells [facility] 1.2.840.114 350.1.13.10 4.2.7.2.686 [id number] [id number] [facility] 2019-02-13 00:00:00 2019-02-13 00:00:00 [facility] 1.2.840.114 350.1.13.10 4.2.7.2.686 [id number] [facility] 2019-02-02 10:49:58 2019-02-02 11:04:58 [employer] Board Certified Orthotist Visit 2, Adc Lab Ochoa Escamilla [facility] Building 1.2.840.114 350.1.13.10 4.2.7.2.686 [id number] [facility] 2019-02-02 00:00:00 2019-02-02 00:00:00 Telephone Ochoa Escamilla [facility] Building 1.2.840.114 350.1.13.10 4.2.7.2.686 [id number] [facility] 2019-01-31 13:13:24 2019-01-31 23:59:00 Hospital Encounter Dara Golden BUILDING 1.2.840.114 350.1.13.10 4.2.7.2.686 [id number] [facility] 2019-01-29 00:00:00 2019-01-29 00:00:00 Telephone Ochoa Escamilla [facility] Building 1.2.840.114 350.1.13.10 4.2.7.2.686 [id number] [facility] 2019-01-26 11:59:24 2019-01-26 13:56:45 Office Visit Leti Escamillazatariq Ann [facility] Building 1.2.840.114 350.1.13.10 4.2.7.2.686 [id number] [facility] 2019-01-24 00:00:00 2019-01-24 00:00:00 Telephone Ochoa Escamilla [facility] 1.2.840.114 350.1.13.10 4.2.7.2.686 [id number] 044 [id number] [facility] 2019-01-22 00:00:00 2019-01-22 00:00:00 Telephone Ochoa Escamilla [facility] 1.2.840.114 350.1.13.10 4.2.7.2.686 [id number] 044 [id number] [facility] 2019-01-16 00:00:00 2019-01-16 00:00:00 Orders Only Doctor Unassigned, Wells [facility] 1.2.840.114 350.1.13.10 4.2.7.2.686 [id number] [id number] [facility] 2018-12-28 00:00:00 2018-12-28 00:00:00 Orders Only Doctor Unassigned, Wells [facility] 1.2.840.114 350.1.13.10 4.2.7.2.686 [id number] [id number] [facility] 2018-08-24 00:00:00 2018-08-24 00:00:00 Orders Only Doctor Unassigned, Wells [facility] 1.2.840.114 350.1.13.10 4.2.7.2.686 [id number] [id number] [facility] Results Test Description Test Time Test Comments Results Resul t Comments Source PHYSICIAN ORDERS 2024-09-02 4 15:46:03 Ordered by an unspecified provider. [facility] DME/SUPPLY JUSTIFICATION 2024-08-04 8 16:08:32 Ordered by an unspecified provider. [facility] DME/SUPPLY JUSTIFICATION 2024-08-04 8 16:08:26 Ordered by an unspecified provider. [facility] SCANNED LAB RESULTS 2024-06-03 7 20:47:02 Ordered by an unspecified provider. [facility] PHYSICIAN ORDERS 2024-05-05 0 21:19:25 Ordered by an unspecified provider. [facility] XR KNEE 3 VW LEFT 2024-04-03 5 22:12:37 EXAM: XR KNEE 3 VW LEFT HISTORY: left knee pain Room COMPARISON: None. FINDINGS: Radiographs of the left knee demonstrate no acute fracture or dislocation.The joint spaces are preserved. Alignment is within normal limits. Smallpatellar enthesophyte. Diffuse osseous demineralization. Small jointeffusion. Arterial vascular calcifications of the posterior knee. [id number]37* Test Item Value Reference Range Interpretation Comme nts TROPONIN I (test code = 3343619789) 0.031 ng/mL <=0.034 MAJOR (test code = [...] of biotin. Lab Interpretation (test code = 90558-8) [facility] (64152)2024-01-16 23:52:55* Test Item Value Reference Range Interpretation Comme nts NA (test code = 5115149255) 141 mmol/L 135-145 K (test code = 3946969377) 3.5 mmol/L 3.5-5.0 CL (test code = 0581407176) 103 mmol/L 98-108 CO2 TOTAL (test code = 0373316000) 31 mmol/L 23-31 AGAP (test code = 7211093784) 7 2-16 BUN (test code = 6041310218) 17 mg/dL 7-23 GLUCOSE (test code = 3412514382) 74 mg/dL 70-110 CREATININE (test code = 2160-0) 1.30 mg/dL 0.50-1.04 H TOTAL BILI (test code = 1137827221) 0.8 mg/dL 0.1-1.1 CALCIUM (test code = 0328241381) 9.4 mg/dL 8.6-10.6 T PROTEIN (test code = 8718819217) 8.0 g/dL 6.3-8.2 ALBUMIN (test code = 2311620122) 4.0 g/dL 3.5-5.0 ALK PHOS (test code = 6707133682) 56 U/L 34-122 ALTv (test code = 1742-6) 11 U/L 5-35 AST(SGOT) (test code = 3645589551) 19 U/L 13-40 eGFR (test code = 04112-6) 42.4 mL/min/1.73m2 CKD-EPI eGFR (2020). Assuming creatinine has been stable day-to-day for at least three months, the eGFR indicates Category G3b (30 - 44 mL/min/1.73 m2) Lab Interpretation (test code = 72586-7) [facility] [id number] 23:52:34* Test Item Value Reference Range Interpretation Comme nts LIPASE (test code = 4329479732) 52 U/L 0-220 Lab Interpretation (test cod e = 61571-7) [facility] WITH [id number] 23:40:33* Test Item Value Reference Range Interpretation [...] g/dL 31.6-35.1 L RDW-SD (test code = 02186-8) 49.3 fL 39.0-49.9 RDW-CV (test code = 788-0) 17.4 % 12.0-15.5 H PLT (test code = 777-3) 288 166-358 MPV (test code = 55094-3) 10.3 fL 9.5-12.9 NRBC/100 WBC (test code = 1766048634) 0.0 0.0-10.0 NRBC x10^3 (test code = 6477958031) See_Comment [Automated messa ge] The system which generated this result transmitted reference range: 10*3/?L. The reference range was not used to interpret this result as normal/abnormal. GRAN MAT (NEUT) % (test code = 770-8) 74.4 % IMM GRAN % (test code = 6170313824) 0.50 % LYMPH % (test code = 736-9) 11.2 % MONO % (test code = 5905-5) 10.0 % EOS % (test code = 713-8) 3.4 % BASO % (test code = 706-2) 0.5 % GRAN MAT x10^3(ANC) (test code = 6785183541) 7.21 10*3/uL 1.88-7.09 H IMM GRAN x10^3 (test code = 5777254012) 0.05 10*3/uL 0.00-0.06 LYMPH x10^3 (test code = 731-0) 1.09 10*3/uL 1.32-3.29 L MONO x10^3 (test code = 742-7) 0.97 10*3/uL 0.33-0.92 H EOS x10^3 (test code = 711-2) 0.33 10*3/uL 0.03-0.39 BASO x10^3 (test code = 704-7) 0.05 10*3/uL 0.01-0.07 Lab Interpretation (test code = 56993-2) Abnormal [facility] 2 [id number] 22:10:15XR CHEST 2 VW History: SOB Comparison: 04/18/2023 Technique: PA and lateral radiographs Findings: Prominence of the interstitium again noted. No pleural effusion,parenchymal consolidation, or pneumothorax is identified. The cardiac silhouette is enlarged, unchanged. Tortuous aortic silhouette. No acute osseous abnormality is present. Partially visualized cervicalfusion hardware.[facility] Hemoglobin A1C [id number] 17:02:00* Test Item Value Reference Range Interpretation Comme [facility] POCT HBA1C (test code = 4548-4) 8.3 % 4-6 A Lab Interpretation (test cod e = 69417-8) Abnormal [facility] Hemoglobin A1C [id number] 17:02:00* Test Item Value Reference Range Interpretation Comme [facility] POCT HBA1C (test code = 4548-4) 8.3 % 4-6 A Lab Interpretation (test cod e = 32411-4) Abnormal [facility] Hemoglobin A1C [id number] 17:02:00* Test Item Value Reference Range Interpretation Comme [facility] POCT HBA1C (test code = 4548-4) 8.3 % 4-6 A Lab Interpretation (test cod e = 51975-1) Abnormal [facility] METABOLIC PANEL (NA, K, CL, CO2, GLUCOSE, BUN, CREATININE, CA)2023-10-30 22:18:04* Test Item Value Reference Range Interpretation Comme [facility] NA (test code = 4066547941) 138 mmol/L 135-145 K (test code = 4366032634) 4.1 mmol/L 3.5-5.0 CL (test code = 1052210430) 103 mmol/L 98-108 CO2 TOTAL (test code = 7435709087) 26 mmol/L 23-31 AGAP (test code = 9738843836) 9 2-16 BUN (test code = 1992115264) 15 mg/dL 7-23 GLUCOSE (test code = 5401685889) 177 mg/dL 70-110 H CREATININE (test code = 2160-0) 1.11 mg/dL 0.50-1.04 H CALCIUM (test code = 9876384802) 8.9 mg/dL 8.6-10.6 eGFR (test code = 11818-5) 51.6 mL/min/1.73m2 CKD-EPI eGFR (2020). Assuming creatinine has been stable day-to-day for at least three months, the eGFR indicates Category G3a (45 - 59 mL/min/1.73 m2) Lab Interpretation (test code = 77604-9) Abnormal [facility] WITH [id number] 22:08:20* Test Item Value Reference Range Interpretation [...] g/dL 31.6-35.1 L RDW-SD (test code = 10931-0) 50.7 fL 39.0-49.9 H RDW-CV (test code = 788-0) 17.1 % 12.0-15.5 H PLT (test code = 777-3) 276 166-358 MPV (test code = 94823-1) 9.9 fL 9.5-12.9 NRBC/100 WBC (test code = 5201765639) 0.0 0.0-10.0 NRBC x10^3 (test code = 6994134170) See_Comment [Automated messa ge] The system which generated this result transmitted reference range: 10*3/?L. The reference range was not used to interpret this result as normal/abnormal. GRAN MAT (NEUT) % (test code = 770-8) 78.1 % IMM GRAN % (test code = 0431240487) 0.40 % LYMPH % (test code = 736-9) 11.3 % MONO % (test code = 5905-5) 5.7 % EOS % (test code = 713-8) 3.8 % BASO % (test code = 706-2) 0.7 % GRAN MAT x10^3(ANC) (test code = 7601597536) 7.90 10*3/uL 1.88-7.09 H IMM GRAN x10^3 (test code = 9190475046) 0.04 10*3/uL 0.00-0.06 LYMPH x10^3 (test code = 731-0) 1.14 10*3/uL 1.32-3.29 L MONO x10^3 (test code = 742-7) 0.58 10*3/uL 0.33-0.92 EOS x10^3 (test code = 711-2) 0.38 10*3/uL 0.03-0.39 BASO x10^3 (test code = 704-7) 0.07 10*3/uL 0.01-0.07 Lab Interpretation (test code = 08728-4) [facility]normal [facility] Center[facility]aca[facility] Acid Whole [id number] 21:39:16* Test Item Value Reference Range Interpretation Comme nts LACTIC ACID (test code = 6305581967) 1.21 mmol/L 0.50-2.20 Lab Interpretation (test cod e = 01322-1) Normal [facility] HEMOGLOBIN A1C [id number] 17:05:00* Test Item Value Reference Range Interpretation Comme nts POCT HBA1C (test code = 4548-4) 8.7 % 4-6 A Lab Interpretation (test cod e = 90153-2) Abnormal [facility] HEMOGLOBIN A1C [id number] 17:05:00* Test Item Value Reference Range Interpretation Comme nts POCT HBA1C (test code = 4548-4) 8.7 % 4-6 A Lab Interpretation (test cod e = 48132-3) Abnormal [facility] GLUCOSE (AUTOMATED)2023-04-19 16:42:14* Test Item Value Reference Range Interpretation Comme nts POCT GLU (test code = 9306095946) 239 mg/dL 70-110 H Lab Interpretation (test cod e = 27791-8) Abnormal [facility] GLUCOSE (AUTOMATED)2023-04-19 13:20:04* Test Item Value Reference Range Interpretation Comme nts POCT GLU (test code = 4095529430) 154 mg/dL 70-110 H Lab Interpretation (test cod e = 67256-5) [facility] (NA, K, CL, CO2, GLUCOSE, BUN, CREATININE, CA)2023-04-19 10:19:08* Test Item Value Reference Range Interpretation Comme nts NA (test code = 5259591486) 138 mmol/L 135-145 K (test code = 9192763677) 3.9 mmol/L 3.5-5.0 CL (test code = 9620006371) 99 mmol/L 98-108 CO2 TOTAL (test code = 1432269336) 29 mmol/L 23-31 AGAP (test code = 3119667881) 10 2-16 BUN (test code = 9184921128) 23 mg/dL 7-23 GLUCOSE (test code = 1636183297) 135 mg/dL 70-110 H CREATININE (test code = 6869037674) 1.42 mg/dL 0.50-1.04 H CALCIUM (test code = 7739537122) 8.5 mg/dL 8.6-10.6 L eGFR (test code = 4632530025) 36.0 mL/min/1.73m2 MAJOR (test code = MAJOR) [...] imaging tests). Lab Interpretation (test code = 07200-4) Abnormal [facility] WITH [id number] 10:05:27* Test Item Value Reference Range Interpretation Comme nts WBC (test code = 6690-2) 7.41 See_Comment [Automated messa ge] The system which generated this result transmitted reference range: 4.30 - 11.10 10*3/?L. The reference range was not used to interpret this result as normal/abnormal. RBC (test code = 789-8) 3.61 See_Comment L [Automated messa ge] The system [...] g/dL 31.6-35.1 L RDW-SD (test code = 08571-1) 51.1 fL 39.0-49.9 H RDW-CV (test code = 788-0) 16.8 % 12.0-15.5 H PLT (test code = 777-3) 208 See_Comment [Automated messa ge] The system which generated this result transmitted reference range: 166 - 358 10*3/?L. The reference range was not used to interpret this result as normal/abnormal. MPV (test code = 18046-2) 10.5 fL 9.5-12.9 NRBC/100 WBC (test code = 0125075308) 0.0 See_Comment [Automated [employer] ssage] The system which generated this result transmitted reference range: 0.0 - 10.0 /100 WBCs. The reference range was not used to interpret this result as normal/abnormal. NRBC x10^3 (test code = 1696152220) See_Comment [Automated Wannyia ge] The system which generated this result transmitted reference range: 10*3/?L. The reference range was not used to interpret this result as normal/abnormal. GRAN MAT (NEUT) % (test code = 770-8) 68.6 % IMM GRAN % (test code = 8986703001) 0.70 % LYMPH % (test code = 736-9) 14.4 % MONO % (test code = 5905-5) 8.6 % EOS % (test code = 713-8) 7.0 % BASO % (test code = 706-2) 0.7 % GRAN MAT x10^3(ANC) (test code = 6486107058) 5.08 10*3/uL 1.88-7.09 IMM GRAN x10^3 (test code = 6161267760) 0.05 10*3/uL 0.00-0.06 LYMPH x10^3 (test code = 731-0) 1.07 10*3/uL 1.32-3.29 L MONO x10^3 (test code = 742-7) 0.64 10*3/uL 0.33-0.92 EOS x10^3 (test code = 711-2) 0.52 10*3/uL 0.03-0.39 H BASO x10^3 (test code = 704-7) 0.05 10*3/uL 0.01-0.07 Lab Interpretation (test code = 06597-9) Abnormal [facility] GLUCOSE (AUTOMATED)2023-04-19 04:45:03* Test Item Value Reference Range Interpretation Comme nts POCT GLU (test code = 0166273032) 184 mg/dL 70-110 H Lab Interpretation (test cod e = 11343-6) Abnormal [facility] GLUCOSE (AUTOMATED)2023-04-19 01:23:16* Test Item Value Reference Range Interpretation Comme nts POCT GLU (test code = 2640563361) 335 mg/dL 70-110 H Lab Interpretation (test cod e = 51879-3) Abnormal [facility] GLUCOSE (AUTOMATED)2023-04-18 21:46:30* Test Item Value Reference Range Interpretation Comme nts POCT GLU (test code = 5910019555) 159 mg/dL 70-110 H Lab Interpretation (test cod e = 19383-5) Abnormal [facility] GLUCOSE (AUTOMATED)2023-04-18 17:17:18* Test Item Value Reference Range Interpretation Comme [facility] POCT GLU (test code = 7201659950) 242 mg/dL 70-110 H Lab Interpretation (test cod e = 83023-2) Abnormal [facility] GLUCOSE (AUTOMATED)2023-04-18 13:11:03* Test Item Value Reference Range Interpretation Comme [facility] POCT GLU (test code = 3614440297) 218 mg/dL 70-110 H Lab Interpretation (test cod e = 86075-2) Abnormal [facility] METABOLIC PANEL (NA, K, CL, CO2, GLUCOSE, BUN, CREATININE, CA)2023-04-18 10:47:12* Test Item Value Reference Range Interpretation Comme nts NA (test code = 3178809139) 136 mmol/L 135-145 K (test code = 2087400783) 3.9 mmol/L 3.5-5.0 CL (test code = 9955030906) 99 mmol/L 98-108 CO2 TOTAL (test code = 6301527167) 30 mmol/L 23-31 AGAP (test code = 9233184558) 7 2-16 BUN (test code = 1910135876) 15 mg/dL 7-23 GLUCOSE (test code = 0964600673) 217 mg/dL 70-110 H CREATININE (test code = 3781874502) 1.10 mg/dL 0.50-1.04 H CALCIUM (test code = 1179622022) 8.4 mg/dL 8.6-10.6 L eGFR (test code = 2624110312) 48.3 mL/min/1.73m2 MAJOR (test code = MAJOR) [...] imaging tests). Lab Interpretation (test code = 56566-1) Abnormal [facility] WITHOUT [id number] 10:37:31* Test Item Value Reference Range Interpretation [...] result as normal/abnormal. MPV (test code = 92200-2) 10.1 fL 9.5-12.9 RDW-CV (test code = 788-0) 16.8 % 12.0-15.5 H RDW-SD (test code = 50573-4) 50.7 fL 39.0-49.9 H NRBC x10^3 (test code = 1468599800) See_Comment [Automated messa ge] The system which generated this result transmitted reference range: 10*3/?L. The reference range was not used to interpret this result as normal/abnormal. NRBC/100 WBC (test code = 7090043088) 0.0 See_Comment [Automated messa ge] The system which generated this result transmitted reference range: 0.0 - 10.0 /100 WBCs. The reference range was not used to interpret this result as normal/abnormal. IPF % (test code = 8878254706) Lab Interpretation (test code = 75732-1) Abnormal [facility] GLUCOSE (AUTOMATED)2023-04-18 01:44:20* Test Item Value Reference Range Interpretation Comme nts POCT GLU (test code = 7363542451) 240 mg/dL 70-110 H Lab Interpretation (test cod e = 97226-8) Abnormal [facility] GLUCOSE (AUTOMATED)2023-04-17 21:44:59* Test Item Value Reference Range Interpretation Comme nts POCT GLU (test code = 7310844682) 221 mg/dL 70-110 H Lab Interpretation (test cod e = 12171-1) Abnormal [facility] GLUCOSE (AUTOMATED)2023-04-17 16:47:28* Test Item Value Reference Range Interpretation Comme nts POCT GLU (test code = 7489857277) 239 mg/dL 70-110 H Lab Interpretation (test cod e = 94510-9) Abnormal [facility] GLUCOSE (AUTOMATED)2023-04-17 12:47:31* Test Item Value Reference Range Interpretation Comme nts POCT GLU (test code = 3185381604) 155 mg/dL 70-110 H Lab Interpretation (test cod e = 61022-4) Abnormal [facility] GLUCOSE (AUTOMATED)2023-04-17 01:13:06* Test Item Value Reference Range Interpretation Comme nts POCT GLU (test code = 2060643492) 214 mg/dL 70-110 H Lab Interpretation (test cod e = 24865-8) Abnormal [facility] GLUCOSE (AUTOMATED)2023-04-16 21:25:35* Test Item Value Reference Range Interpretation Comme nts POCT GLU (test code = 3108590475) 175 mg/dL 70-110 H Lab Interpretation (test cod e = 10703-1) Abnormal [facility] GLUCOSE (AUTOMATED)2023-04-16 17:39:02* Test Item Value Reference Range Interpretation Comme nts POCT GLU (test code = 3896760810) 239 mg/dL 70-110 H Lab Interpretation (test cod e = 80067-0) Abnormal [facility] GLUCOSE (AUTOMATED)2023-04-16 16:52:26* Test Item Value Reference Range Interpretation Comme nts POCT GLU (test code = 6199522018) 228 mg/dL 70-110 H Lab Interpretation (test cod e = 34416-2) Abnormal [facility] GLUCOSE (AUTOMATED)2023-04-16 12:52:50* Test Item Value Reference Range Interpretation Comme nts POCT GLU (test code = 2008285499) 104 mg/dL 70-110 Lab Interpretation (test cod e = 58611-0) Normal [facility] GLUCOSE (AUTOMATED)2023-04-16 12:50:54* Test Item Value Reference Range Interpretation Comme nts POCT GLU (test code = 8334908307) 96 mg/dL 70-110 Lab Interpretation (test cod e = 77883-3) Normal [facility] GLUCOSE (AUTOMATED)2023-04-16 01:47:08* Test Item Value Reference Range Interpretation Comme nts POCT GLU (test code = 1273495004) 223 mg/dL 70-110 H Lab Interpretation (test cod e = 73789-0) Abnormal [facility] GLUCOSE (AUTOMATED)2023-04-15 21:49:51* Test Item Value Reference Range Interpretation Comme nts POCT GLU (test code = 8156260705) 142 mg/dL 70-110 H Lab Interpretation (test cod e = 24231-7) Abnormal [facility] GLUCOSE (AUTOMATED)2023-04-15 16:45:53* Test Item Value Reference Range Interpretation Comme nts POCT GLU (test code = 6528670123) 117 mg/dL 70-110 H Lab Interpretation (test cod e = 76166-4) Abnormal [facility] GLUCOSE (AUTOMATED)2023-04-15 12:50:09* Test Item Value Reference Range Interpretation Comme nts POCT GLU (test code = 6436830783) 109 mg/dL 70-110 Lab Interpretation (test cod e = 51564-3) [facility] [id number] 10:21:21* Test Item Value Reference Range Interpretation Comme nts TROPONIN I (test code = 5075148100) 0.041 ng/mL <=0.034 H MAJOR (test code [...] of biotin. Lab Interpretation (test code = 92710-8) [facility] [id number] 10:18:40* Test Item Value Reference Range Interpretation Comme nts NT-proBNP (test code = 97053-5) 6020 pg/mL <=125 H MAJOR (test code = MAJOR) Positive: Heart Failure Likely Lab Interpretation (test code = 92590-4) [facility]2023-[facility]-13 10:11:24* Test Item Value Reference Range Interpretation Comme nts MAGNESIUM (test code = 1991702724) 2.0 mg/dL 1.7-2.4 Lab Interpretation (test cod e = 71851-5) Normal [facility] METABOLIC PANEL (NA, K, CL, CO2, GLUCOSE, BUN, CREATININE, CA)2023-04-15 10:11:04* Test Item Value Reference Range Interpretation Comme nts NA (test code = 8238473363) 139 mmol/L 135-145 K (test code = 4149917687) 3.5 mmol/L 3.5-5.0 CL (test code = 8642642127) 101 mmol/L 98-108 CO2 TOTAL (test code = 5260385520) 29 mmol/L 23-31 AGAP (test code = 5414911790) 9 2-16 BUN (test code = 6191602795) 22 mg/dL 7-23 GLUCOSE (test code = 3015408688) 65 mg/dL 70-110 L CREATININE (test code = 5481616587) 1.41 mg/dL 0.50-1.04 H CALCIUM (test code = 3972071870) 8.0 mg/dL 8.6-10.6 L eGFR (test code = 4767388491) 36.3 mL/min/1.73m2 MAJOR (test code = MAJOR) [...] imaging tests). Lab Interpretation (test code = 77863-5) Abnormal [facility] WITH [id number] 09:51:20* Test Item Value Reference Range Interpretation Comme nts WBC (test code = 6690-2) 5.71 See_Comment [Automated [employer] ge] The system which generated this result transmitted reference range: 4.30 - 11.10 10*3/?L. The reference range was not used to interpret this result as normal/abnormal. RBC (test code = 789-8) 3.08 See_Comment L [Automated [employer] ge] The system which generated this result [...] g/dL 31.6-35.1 L RDW-SD (test code = 30904-6) 54.1 fL 39.0-49.9 H RDW-CV (test code = 788-0) 17.4 % 12.0-15.5 H PLT (test code = 777-3) 195 See_Comment [Automated [employer] ge] The system which generated this result transmitted reference range: 166 - 358 10*3/?L. The reference range was not used to interpret this result as normal/abnormal. MPV (test code = 31797-6) 10.2 fL 9.5-12.9 NRBC/100 WBC (test code = 2276622296) 0.0 See_Comment [Automated me ssage] The system which generated this result transmitted reference range: 0.0 - 10.0 /100 WBCs. The reference range was not used to interpret this result as normal/abnormal. NRBC x10^3 (test code = 6502648609) See_Comment [Automated messa ge] The system which generated this result transmitted reference range: 10*3/?L. The reference range was not used to interpret this result as normal/abnormal. GRAN MAT (NEUT) % (test code = 770-8) 64.6 % IMM GRAN % (test code = 4111907266) 0.40 % LYMPH % (test code = 736-9) 17.2 % MONO % (test code = 5905-5) 12.3 % EOS % (test code = 713-8) 5.3 % BASO % (test code = 706-2) 0.2 % GRAN MAT x10^3(ANC) (test code = 1408294675) 3.70 10*3/uL 1.88-7.09 IMM GRAN x10^3 (test code = 6792925108) 0.00-0.06 LYMPH x10^3 (test code = 731-0) 0.98 10*3/uL 1.32-3.29 L MONO x10^3 (test code = 742-7) 0.70 10*3/uL 0.33-0.92 EOS x10^3 (test code = 711-2) 0.30 10*3/uL 0.03-0.39 BASO x10^3 (test code = 704-7) 0.01-0.07 Lab Interpretation (test code = 75246-5) Abnormal [facility] GLUCOSE (AUTOMATED)2023-04-15 01:49:16* Test Item Value Reference Range Interpretation Comme nts POCT GLU (test code = [id number]) 195 mg/dL 70-110 H Lab Interpretation (test cod e = 84304-9) Abnormal [facility] GLUCOSE (AUTOMATED)2023-04-14 21:39:23* Test Item Value Reference Range Interpretation Comme nts POCT GLU (test code = [id number]) 159 mg/dL 70-110 H Lab Interpretation (test cod e = 86718-9) Abnormal [facility] GLUCOSE (AUTOMATED)2023-04-14 16:53:23* Test Item Value Reference Range Interpretation Comme nts POCT GLU (test code = 7247918785) 119 mg/dL 70-110 H Lab Interpretation (test cod e = 68371-7) Abnormal [facility] GLUCOSE (AUTOMATED)2023-04-14 12:58:53* Test Item Value Reference Range Interpretation Comme nts POCT GLU (test code = 8054541688) 84 mg/dL 70-110 Lab Interpretation (test cod e = 63617-8) Normal [facility] GLUCOSE (AUTOMATED)2023-04-14 02:29:08* Test Item Value Reference Range Interpretation Comme nts POCT GLU (test code = 1388889293) 204 mg/dL 70-110 H Lab Interpretation (test cod e = 73388-6) Abnormal [facility] GLUCOSE (AUTOMATED)2023-04-13 22:42:06* Test Item Value Reference Range Interpretation Comme nts POCT GLU (test code = 1246882355) 210 mg/dL 70-110 H Lab Interpretation (test cod e = 09662-4) Abnormal [facility] GLUCOSE (AUTOMATED)2023-04-13 17:07:42* Test Item Value Reference Range Interpretation Comme nts POCT GLU (test code = 3773992941) 217 mg/dL 70-110 H Lab Interpretation (test cod e = 77429-0) Abnormal [facility] GLUCOSE (AUTOMATED)2023-04-13 13:23:19* Test Item Value Reference Range Interpretation Comme nts POCT GLU (test code = 5797242906) 178 mg/dL 70-110 H Lab Interpretation (test cod e = 00657-2) [id number]* Test Item Value Reference Range Interpretation Comme nts TROPONIN I (test code = 9630223775) 0.065 ng/mL <=0.034 H MAJOR (test code [...] of biotin. Lab Interpretation (test code = 02827-6) [id number] 00:10:06* Test Item Value Reference Range Interpretation Comme nts NT-proBNP (test code = 69147-4) 5780 pg/mL <=125 H MAJOR (test code = MAJOR) Positive: Heart Failure Likely Lab Interpretation (test code = 47617-4) [facility]58[facility]-12 21:48:02* Test Item Value Reference Range Interpretation Comme nts NA (test code = 1651623303) 141 mmol/L 135-145 K (test code = 0001839207) 4.3 mmol/L 3.5-5.0 CL (test code = 5168871040) 104 mmol/L 98-108 CO2 TOTAL (test code = 6326956033) 23 mmol/L 23-31 AGAP (test code = 0036156061) 14 2-16 BUN (test code = 9957271153) 25 mg/dL 7-23 H GLUCOSE (test code = 8044629386) 289 mg/dL 70-110 H CREATININE (test code = 7392519095) 1.30 mg/dL 0.50-1.04 H TOTAL BILI (test code = 1136813366) 0.7 mg/dL 0.1-1.1 CALCIUM (test code = 4045654210) 8.6 mg/dL 8.6-10.6 T PROTEIN (test code = 4056816432) 7.0 g/dL 6.3-8.2 ALBUMIN (test code = 2454077986) 3.6 g/dL 3.5-5.0 ALK PHOS (test code = 3963984151) 49 U/L 34-122 ALTv (test code = 1742-6) 32 U/L 5-35 AST(SGOT) (test code = 7513595088) 34 U/L 13-40 eGFR (test code = 1205916530) 39.8 mL/min/1.73m2 MAJOR (test code = MAJOR) [...] imaging tests). Lab Interpretation (test code = 50382-0) Abnormal [facility] WITH [id number] 21:34:38* Test Item Value Reference Range Interpretation [...] g/dL 31.6-35.1 L RDW-SD (test code = 97903-5) 53.4 fL 39.0-49.9 H RDW-CV (test code = 788-0) 17.4 % 12.0-15.5 H PLT (test code = 777-3) 235 See_Comment [Automated message] The system which generated this result transmitted reference range: 166 - 358 10*3/?L. The reference range was not used to interpret this result as normal/abnormal. MPV (test code = 90068-0) 10.7 fL 9.5-12.9 NRBC/100 WBC (test code = 0833905686) 0.0 See_Comment [Automated message] The system which generated this result transmitted reference range: 0.0 - 10.0 /100 WBCs. The reference range was not used to interpret this result as normal/abnormal. NRBC x10^3 (test code = 8739838274) See_Comment [Automated message] The system which generated this result transmitted reference range: 10*3/?L. The reference range was not used to interpret this result as normal/abnormal. GRAN MAT (NEUT) % (test code = 770-8) 89.1 % IMM GRAN % (test code = 9830797162) 0.50 % LYMPH % (test code = 736-9) 3.5 % MONO % (test code = 5905-5) 5.5 % EOS % (test code = 713-8) 0.9 % BASO % (test code = 706-2) 0.5 % GRAN MAT x10^3(ANC) (test code = 7462180206) 12.01 10*3/uL 1.88-7.09 H IMM GRAN x10^3 (test code = 2856438992) 0.07 10*3/uL 0.00-0.06 H LYMPH x10^3 (test code = 731-0) 0.47 10*3/uL 1.32-3.29 L MONO x10^3 (test code = 742-7) 0.74 10*3/uL 0.33-0.92 EOS x10^3 (test code = 711-2) 0.12 10*3/uL 0.03-0.39 BASO x10^3 (test code = 704-7) 0.07 10*3/uL 0.01-0.07 Lab Interpretation (test code = 89338-5) Abnormal [facility] GLUCOSE (AUTOMATED)2023-03-28 12:41:03* Test Item Value Reference Range Interpretation Comme nts POCT GLU (test code = 8913145485) 222 mg/dL 70-110 H Lab Interpretation (test cod e = 37329-2) Abnormal [facility] GLUCOSE (AUTOMATED)2023-03-28 12:41:03* Test Item Value Reference Range Interpretation Comme nts POCT GLU (test code = 7346007084) 222 mg/dL 70-110 H Lab Interpretation (test cod e = 12845-5) Abnormal [facility] GLUCOSE (AUTOMATED)2023-03-28 01:18:56* Test Item Value Reference Range Interpretation Comme nts POCT GLU (test code = 9062527257) 254 mg/dL 70-110 H Lab Interpretation (test cod e = 69308-5) Abnormal [facility] GLUCOSE (AUTOMATED)2023-03-28 01:18:56* Test Item Value Reference Range Interpretation Comme nts POCT GLU (test code = 4427090992) 254 mg/dL 70-110 H Lab Interpretation (test cod e = 31469-2) Abnormal [facility] GLUCOSE (AUTOMATED)2023-03-27 21:45:55* Test Item Value Reference Range Interpretation Comme nts POCT GLU (test code = 3733332748) 144 mg/dL 70-110 H Lab Interpretation (test cod e = 73374-9) Abnormal [facility] GLUCOSE (AUTOMATED)2023-03-27 21:45:55* Test Item Value Reference Range Interpretation Comme nts POCT GLU (test code = 1884851317) 144 mg/dL 70-110 H Lab Interpretation (test cod e = 15008-0) Abnormal [facility] GLUCOSE (AUTOMATED)2023-03-27 16:56:58* Test Item Value Reference Range Interpretation Comme nts POCT GLU (test code = 1248858487) 144 mg/dL 70-110 H Lab Interpretation (test cod e = 01680-1) [facility] 16:56:58* Test Item Value Reference Range Interpretation Comme nts POCT GLU (test code = 4240474189) 144 mg/dL 70-110 H Lab Interpretation (test cod e = 23613-8) [facility] 15:26:26* Test Item Value Reference Range Interpretation Comme nts APTT Patient (test code = 3173-2) 70 See_Comment H [Automated messa ge] The system which generated this result transmitted reference range: 26 - 36 Seconds. The reference range was not used to interpret this result as normal/abnormal. Lab Interpretation (test code = 46038-8) [facility]2023-03-27 15:26:26* Test Item Value Reference Range Interpretation Comme nts APTT Patient (test code = 3173-2) 70 See_Comment H [Automated messa ge] The system which generated this result transmitted reference range: 26 - 36 Seconds. The reference range was not used to interpret this result as normal/abnormal. Lab Interpretation (test code = 85041-3) Abnormal [facility] GLUCOSE (AUTOMATED)2023-03-27 13:13:38* Test Item Value Reference Range Interpretation Comme nts POCT GLU (test code = 9178262387) 251 mg/dL 70-110 H Lab Interpretation (test cod e = 49667-7) Abnormal [facility] GLUCOSE (AUTOMATED)2023-03-27 13:13:38* Test Item Value Reference Range Interpretation Comme nts POCT GLU (test code = 8079573227) 251 mg/dL 70-110 H Lab Interpretation (test cod e = 27148-9) Abnormal [facility] GLUCOSE (AUTOMATED)2023-03-27 03:00:44* Test Item Value Reference Range Interpretation Comme nts POCT GLU (test code = 6499493004) 222 mg/dL 70-110 H Lab Interpretation (test cod e = 93537-3) Abnormal [facility] GLUCOSE (AUTOMATED)2023-03-27 03:00:44* Test Item Value Reference Range Interpretation Comme nts POCT GLU (test code = 3182575309) 222 mg/dL 70-110 H Lab Interpretation (test cod e = 73772-3) [facility]normal [facility] Drip[facility]2023-03-26 21:49:46* Test Item Value Reference Range Interpretation Comme nts APTT Patient (test code = 3173-2) 38 See_Comment H [Automated messa ge] The system which generated this result transmitted reference range: 26 - 36 Seconds. The reference range was not used to interpret this result as normal/abnormal. Lab Interpretation (test code = 28559-6) [facility] 21:49:46* Test Item Value Reference Range Interpretation Comme nts APTT Patient (test code = 3173-2) 38 See_Comment H [Automated messa ge] The system which generated this result transmitted reference range: 26 - 36 Seconds. The reference range was not used to interpret this result as normal/abnormal. Lab Interpretation (test code = 88712-1) Abnormal [facility] GLUCOSE (AUTOMATED)2023-03-26 21:48:30* Test Item Value Reference Range Interpretation Comme nts POCT GLU (test code = 3153316119) 118 mg/dL 70-110 H Lab Interpretation (test cod e = 74638-3) Abnormal [facility] GLUCOSE (AUTOMATED)2023-03-26 21:48:30* Test Item Value Reference Range Interpretation Comme nts POCT GLU (test code = 8783539499) 118 mg/dL 70-110 H Lab Interpretation (test cod e = 45111-8) Abnormal [facility] GLUCOSE (AUTOMATED)2023-03-26 17:39:21* Test Item Value Reference Range Interpretation Comme nts POCT GLU (test code = 2481301112) 152 mg/dL 70-110 H Lab Interpretation (test cod e = 57943-3) Abnormal [facility] GLUCOSE (AUTOMATED)2023-03-26 17:39:21* Test Item Value Reference Range Interpretation Comme nts POCT GLU (test code = 0783245588) 152 mg/dL 70-110 H Lab Interpretation (test cod e = 83078-8) Abnormal [facility] GLUCOSE (AUTOMATED)2023-03-26 12:19:26* Test Item Value Reference Range Interpretation Comme nts POCT GLU (test code = 2386145309) 188 mg/dL 70-110 H Lab Interpretation (test cod e = 44912-4) Abnormal [facility] GLUCOSE (AUTOMATED)2023-03-26 12:19:26* Test Item Value Reference Range Interpretation Comme nts POCT GLU (test code = 8256418351) 188 mg/dL 70-110 H Lab Interpretation (test cod e = 36222-9) Abnormal [facility] GLUCOSE (AUTOMATED)2023-03-26 03:12:58* Test Item Value Reference Range Interpretation Comme nts POCT GLU (test code = 4846676814) 250 mg/dL 70-110 H Lab Interpretation (test cod e = 98687-5) Abnormal [facility] GLUCOSE (AUTOMATED)2023-03-26 03:12:58* Test Item Value Reference Range Interpretation Comme nts POCT GLU (test code = 1085473281) 250 mg/dL 70-110 H Lab Interpretation (test cod e = 35075-7) [id number] 00:10:00* Test Item Value Reference Range Interpretation Comme nts APTT Patient (test code = 3173-2) 68 See_Comment H [Automated messa ge] The system which generated this result transmitted reference range: 26 - 36 Seconds. The reference range was not used to interpret this result as normal/abnormal. Lab Interpretation (test code = 49850-7) [facility] [id number] 00:10:00* Test Item Value Reference Range Interpretation Comme nts APTT Patient (test code = 3173-2) 68 See_Comment H [Automated messa ge] The system which generated this result transmitted reference range: 26 - 36 Seconds. The reference range was not used to interpret this result as normal/abnormal. Lab Interpretation (test code = 70381-7) Abnormal [facility] GLUCOSE (AUTOMATED)2023-03-25 23:08:26* Test Item Value Reference Range Interpretation Comme [facility] POCT GLU (test code = 6511740256) 216 mg/dL 70-110 H Lab Interpretation (test cod e = 29466-5) Abnormal [facility] GLUCOSE (AUTOMATED)2023-03-25 23:08:26* Test Item Value Reference Range Interpretation Comme [facility] POCT GLU (test code = 2714826723) 216 mg/dL 70-110 H Lab Interpretation (test cod e = 23212-4) Abnormal [facility] METABOLIC PANEL (NA, K, CL, CO2, GLUCOSE, BUN, CREATININE, CA)2023-03-25 20:57:17* Test Item Value Reference Range Interpretation Comme [facility] NA (test code = 8864438493) 138 mmol/L 135-145 K (test code = 3565937711) 3.9 mmol/L 3.5-5.0 CL (test code = 0537744680) 105 mmol/L 98-108 CO2 TOTAL (test code = 3150499637) 28 mmol/L 23-31 AGAP (test code = 6856026813) 5 2-16 BUN (test code = 1877964769) 27 mg/dL 7-23 H GLUCOSE (test code = 1224607148) 156 mg/dL 70-110 H CREATININE (test code = 0325660018) 1.42 mg/dL 0.50-1.04 H CALCIUM (test code = 2342149688) 7.3 mg/dL 8.6-10.6 L eGFR (test code = 7291879819) 36.0 mL/min/1.73m2 MAJOR (test code = MAJOR) [...] imaging tests). Lab Interpretation (test code = 78848-1) Abnormal [facility] METABOLIC PANEL (NA, K, CL, CO2, GLUCOSE, BUN, CREATININE, CA)2023-03-25 20:57:17* Test Item Value Reference Range Interpretation Comme nts NA (test code = 8580461391) 138 mmol/L 135-145 K (test code = 9626629431) 3.9 mmol/L 3.5-5.0 CL (test code = 2242183264) 105 mmol/L 98-108 CO2 TOTAL (test code = 6757188478) 28 mmol/L 23-31 AGAP (test code = 3638566938) 5 2-16 BUN (test code = 5112043405) 27 mg/dL 7-23 H GLUCOSE (test code = 4057630872) 156 mg/dL 70-110 H CREATININE (test code = 9180598199) 1.42 mg/dL 0.50-1.04 H CALCIUM (test code = 3144770517) 7.3 mg/dL 8.6-10.6 L eGFR (test code = 0492623283) 36.0 mL/min/1.73m2 MAJOR (test code = MAJOR) [...] imaging tests). Lab Interpretation (test code = 53423-6) Abnormal [facility] GLUCOSE (AUTOMATED)2023-03-25 20:45:01* Test Item Value Reference Range Interpretation Comme [facility] POCT GLU (test code = 6524710093) 177 mg/dL 70-110 H Lab Interpretation (test cod e = 15440-5) Abnormal [facility] GLUCOSE (AUTOMATED)2023-03-25 20:45:01* Test Item Value Reference Range Interpretation Comme [facility] POCT GLU (test code = 9843806012) 177 mg/dL 70-110 H Lab Interpretation (test cod e = 34923-4) Abnormal [facility] WITH [id number] 20:44:30* Test Item Value Reference Range Interpretation Comme [facility] WBC (test code = 6690-2) 6.05 See_Comment [Automated [employer]] The system which generated this result transmitted [...] g/dL 31.6-35.1 L RDW-SD (test code = 12129-0) 51.8 fL 39.0-49.9 H RDW-CV (test code = 788-0) 16.7 % 12.0-15.5 H PLT (test code = 777-3) 165 See_Comment L [Automated messa ge] The system which generated this result transmitted reference range: 166 - 358 10*3/?L. The reference range was not used to interpret this result as normal/abnormal. MPV (test code = 39398-6) 10.2 fL 9.5-12.9 NRBC/100 WBC (test code = 4518413370) 0.0 See_Comment [Automated me ssage] The system which generated this result transmitted reference range: 0.0 - 10.0 /100 WBCs. The reference range was not used to interpret this result as normal/abnormal. NRBC x10^3 (test code = 0148209844) See_Comment [Automated messa ge] The system which generated this result transmitted reference range: 10*3/?L. The reference range was not used to interpret this result as normal/abnormal. GRAN MAT (NEUT) % (test code = 770-8) 67.7 % IMM GRAN % (test code = 3300907732) 2.00 % LYMPH % (test code = 736-9) 14.0 % MONO % (test code = 5905-5) 9.6 % EOS % (test code = 713-8) 6.0 % BASO % (test code = 706-2) 0.7 % GRAN MAT x10^3(ANC) (test code = 8581951000) 4.10 10*3/uL 1.88-7.09 IMM GRAN x10^3 (test code = 9454838430) 0.12 10*3/uL 0.00-0.06 H LYMPH x10^3 (test code = 731-0) 0.85 10*3/uL 1.32-3.29 L MONO x10^3 (test code = 742-7) 0.58 10*3/uL 0.33-0.92 EOS x10^3 (test code = 711-2) 0.36 10*3/uL 0.03-0.39 BASO x10^3 (test code = 704-7) 0.04 10*3/uL 0.01-0.07 Lab Interpretation (test code = 38153-5) Abnormal [facility] WITH [id number] 20:44:30* Test Item Value Reference Range Interpretation [...] g/dL 31.6-35.1 L RDW-SD (test code = 03746-6) 51.8 fL 39.0-49.9 H RDW-CV (test code = 788-0) 16.7 % 12.0-15.5 H PLT (test code = 777-3) 165 See_Comment L [Automated messa ge] The system which generated this result transmitted reference range: 166 - 358 10*3/?L. The reference range was not used to interpret this result as normal/abnormal. MPV (test code = 49874-6) 10.2 fL 9.5-12.9 NRBC/100 WBC (test code = 4647844449) 0.0 See_Comment [Automated me ssage] The system which generated this result transmitted reference range: 0.0 - 10.0 /100 WBCs. The reference range was not used to interpret this result as normal/abnormal. NRBC x10^3 (test code = 0000572334) See_Comment [Automated messa ge] The system which generated this result transmitted reference range: 10*3/?L. The reference range was not used to interpret this result as normal/abnormal. GRAN MAT (NEUT) % (test code = 770-8) 67.7 % IMM GRAN % (test code = 6628975283) 2.00 % LYMPH % (test code = 736-9) 14.0 % MONO % (test code = 5905-5) 9.6 % EOS % (test code = 713-8) 6.0 % BASO % (test code = 706-2) 0.7 % GRAN MAT x10^3(ANC) (test code = 9736822875) 4.10 10*3/uL 1.88-7.09 IMM GRAN x10^3 (test code = 5525455786) 0.12 10*3/uL 0.00-0.06 H LYMPH x10^3 (test code = 731-0) 0.85 10*3/uL 1.32-3.29 L MONO x10^3 (test code = 742-7) 0.58 10*3/uL 0.33-0.92 EOS x10^3 (test code = 711-2) 0.36 10*3/uL 0.03-0.39 BASO x10^3 (test code = 704-7) 0.04 10*3/uL 0.01-0.07 Lab Interpretation (test code = 18432-8) Abnormal [facility] GLUCOSE (AUTOMATED)2023-03-25 15:53:55* Test Item Value Reference Range Interpretation Comme nts POCT GLU (test code = 8343560201) 226 mg/dL 70-110 H Notified Provide r Lab Interpretation (test code = 58360-5) Abnormal [facility] GLUCOSE (AUTOMATED)2023-03-25 15:53:55* Test Item Value Reference Range Interpretation Comme nts POCT GLU (test code = 2293635674) 226 mg/dL 70-110 H Notified Provide r Lab Interpretation (test code = 97469-8) Abnormal [facility] GLUCOSE (AUTOMATED)2023-03-25 12:36:08* Test Item Value Reference Range Interpretation Comme nts POCT GLU (test code = 6950386489) 211 mg/dL 70-110 H Notified Provide r Lab Interpretation (test code = 81101-2) Abnormal [facility] GLUCOSE (AUTOMATED)2023-03-25 12:36:08* Test Item Value Reference Range Interpretation Comme nts POCT GLU (test code = 5673090565) 211 mg/dL 70-110 H Notified Provide r Lab Interpretation (test code = 50346-6) Abnormal [facility] GLUCOSE (AUTOMATED)2023-03-25 01:07:27* Test Item Value Reference Range Interpretation Comme nts POCT GLU (test code = 0599483216) 285 mg/dL 70-110 H Lab Interpretation (test cod e = 43789-9) Abnormal [facility] GLUCOSE (AUTOMATED)2023-03-25 01:07:27* Test Item Value Reference Range Interpretation Comme nts POCT GLU (test code = 3045841176) 285 mg/dL 70-110 H Lab Interpretation (test cod e = 59966-9) [facility] 22:39:37* Test Item Value Reference Range Interpretation Comme nts APTT Patient (test code = 3173-2) 47 See_Comment H [Automated messa ge] The system which generated this result transmitted reference range: 26 - 36 Seconds. The reference range was not used to interpret this result as normal/abnormal. Lab Interpretation (test code = 14343-1) [facility]-24 22:39:37* Test Item Value Reference Range Interpretation Comme [facility] APTT Patient (test code = 3173-2) 47 See_Comment H [Automated messa ge] The system which generated this result transmitted reference range: 26 - 36 Seconds. The reference range was not used to interpret this result as normal/abnormal. Lab Interpretation (test code = 53946-0) Abnormal [facility] GLUCOSE (AUTOMATED)2023-03-24 22:35:11* Test Item Value Reference Range Interpretation Comme [facility] POCT GLU (test code = 4173774895) 277 mg/dL 70-110 H Lab Interpretation (test cod e = 68415-3) Abnormal [facility] GLUCOSE (AUTOMATED)2023-03-24 22:35:11* Test Item Value Reference Range Interpretation Comme [facility] POCT GLU (test code = 3261662847) 277 mg/dL 70-110 H Lab Interpretation (test cod e = 20140-3) Abnormal [facility] GLUCOSE (AUTOMATED)2023-03-24 20:08:36* Test Item Value Reference Range Interpretation Comme [facility] POCT GLU (test code = 9313397689) 326 mg/dL 70-110 H Lab Interpretation (test cod e = 67812-3) Abnormal [facility] GLUCOSE (AUTOMATED)2023-03-24 20:08:36* Test Item Value Reference Range Interpretation Comme [facility] POCT GLU (test code = 7661608663) 326 mg/dL 70-110 H Lab Interpretation (test cod e = 31621-4) [facility] [id number] 18:19:03* Test Item Value Reference Range Interpretation Comme nts PH (test code = 7705539195) 7.45 7.32-7.42 H PCO2 JARRET (test code = 8564361639) 38 See_Comment L [Automated messa ge] The system which generated this result transmitted reference range: 41 - 51 mmHg. The reference range was not used to interpret this result as normal/abnormal. PO2 JARRET (test code = 3186038406) 81 See_Comment HH [Automated messa ge] The system which generated this result transmitted reference range: 25 - 40 mmHg. The reference range was not used to interpret this result as normal/abnormal. HCO3 JARRET (test code = 4172302806) 26 See_Comment [Automated messa ge] The system which generated this result transmitted reference range: 24 - 28 mEq/L. The reference range was not used to interpret this result as normal/abnormal. AC VBE(BEAKER) (test code = 5315473807) 1.6 mEq/L THB JARRET (test code = 7590108215) 10.1 g/dL 12.0-16.0 L %O2HB JARRET (test code = 9097075535) 94.1 % 52.0-63.0 H %COHB JARRET (test code = 3832486903) 1.2 % 0.0-1.5 %METHB JARRET (test code = 6139626422) 0.3 % 0.4-1.5 L VOL%O2 JARRET (test code = 4191874938) 13.5 % 6.0-12.0 H NA (test code = 5490697817) 133 mmol/L 135-145 L K+ (test code = 3067969277) 3.8 mmol/L 3.5-5.0 AC CA IONZ (test code = 2325128799) 4.40 mg/dL 4.50-5.30 L GLUCOSE (test code = 9601950186) 272 mg/dL 70-110 H LACTIC ACID (test code = 7957388649) 1.85 mmol/L 0.50-2.20 Lab Interpretation (test code = 00419-8) [facility] [id number] 18:19:03* Test Item Value Reference Range Interpretation Comme nts PH (test code = 8203322737) 7.45 7.32-7.42 H PCO2 JARRET (test code = 1816865775) 38 See_Comment L [Automated messa ge] The system which generated this result transmitted reference range: 41 - 51 mmHg. The reference range was not used to interpret this result as normal/abnormal. PO2 JARRET (test code = 6527349825) 81 See_Comment HH [Automated messa ge] The system which generated this result transmitted reference range: 25 - 40 mmHg. The reference range was not used to interpret this result as normal/abnormal. HCO3 JARRET (test code = 5079820545) 26 See_Comment [Automated messa ge] The system which generated this result transmitted reference range: 24 - 28 mEq/L. The reference range was not used to interpret this result as normal/abnormal. AC VBE(BEAKER) (test code = 1601533942) 1.6 mEq/L THB JARRET (test code = 8492886185) 10.1 g/dL 12.0-16.0 L %O2HB JARRET (test code = 9824909667) 94.1 % 52.0-63.0 H %COHB JARRET (test code = 0129638880) 1.2 % 0.0-1.5 %METHB JARRET (test code = 3630658617) 0.3 % 0.4-1.5 L VOL%O2 JARRET (test code = 0182158780) 13.5 % 6.0-12.0 H NA (test code = 3466798429) 133 mmol/L 135-145 L K+ (test code = 7446953978) 3.8 mmol/L 3.5-5.0 AC CA IONZ (test code = 0343861552) 4.40 mg/dL 4.50-5.30 L GLUCOSE (test code = 1275314424) 272 mg/dL 70-110 H LACTIC ACID (test code = 2569834876) 1.85 mmol/L 0.50-2.20 Lab Interpretation (test code = 48394-8) Abnormal [facility] GLUCOSE (AUTOMATED)2023-03-24 17:01:07* Test Item Value Reference Range Interpretation Comme nts POCT GLU (test code = 5527366076) 301 mg/dL 70-110 H Lab Interpretation (test cod e = 82749-7) Abnormal [facility] GLUCOSE (AUTOMATED)2023-03-24 17:01:07* Test Item Value Reference Range Interpretation Comme nts POCT GLU (test code = 1885994240) 301 mg/dL 70-110 H Lab Interpretation (test cod e = 55807-9) [facility] Test Item Value Reference Range Interpretation Comme nts APTT Patient (test code = 3173-2) 31 See_Comment [Automated messa ge] The system which generated this result transmitted reference range: 26 - 36 Seconds. The reference range was not used to interpret this result as normal/abnormal. Lab Interpretation (test code = 66497-7) [facility]:35* Test Item Value Reference Range Interpretation Comme nts APTT Patient (test code = 3173-2) 31 See_Comment [Automated messa ge] The system which generated this result transmitted reference range: 26 - 36 Seconds. The reference range was not used to interpret this result as normal/abnormal. Lab Interpretation (test code = 03137-5) [facility] Bkjhgai0538-28-22 15:24:00* Test Item Value Reference Range Interpretation Comme nts ABO & RH (test code = 20) B NEGATIVE IAT (test code = 1185) Negative [facility] and Screen - ONCE Nxiefmb6465-03-89 15:24:00* Test Item Value Reference Range Interpretation Comme nts ABO & RH (test code = 20) B NEGATIVE IAT (test code = 1185) Negative [facility] GLUCOSE (AUTOMATED)2023-03-24 13:42:17* Test Item Value Reference Range Interpretation Comme nts POCT GLU (test code = 1975713823) 256 mg/dL 70-110 H Lab Interpretation (test cod e = 23181-1) Abnormal [facility] GLUCOSE (AUTOMATED)2023-03-24 13:42:17* Test Item Value Reference Range Interpretation Comme nts POCT GLU (test code = 8274043630) 256 mg/dL 70-110 H Lab Interpretation (test cod e = 88722-0) Abnormal [facility] METABOLIC PANEL (NA, K, CL, CO2, GLUCOSE, BUN, CREATININE, CA)2023-03-24 12:06:10* Test Item Value Reference Range Interpretation Comme nts NA (test code = 5486379374) 136 mmol/L 135-145 K (test code = 3094248112) 4.1 mmol/L 3.5-5.0 CL (test code = 1784240807) 100 mmol/L 98-108 CO2 TOTAL (test code = 4430886811) 27 mmol/L 23-31 AGAP (test code = 3391036329) 9 2-16 BUN (test code = 8889004783) 31 mg/dL 7-23 H GLUCOSE (test code = 9997698157) 195 mg/dL 70-110 H CREATININE (test code = 9592663656) 1.46 mg/dL 0.50-1.04 H CALCIUM (test code = 7329296666) 8.0 mg/dL 8.6-10.6 L eGFR (test code = 9531929805) 34.8 mL/min/1.73m2 MAJOR (test code = MAJOR) [...] imaging tests). Lab Interpretation (test code = 38356-2) [facility] 12:06:10* Test Item Value Reference Range Interpretation Comme nts MAGNESIUM (test code = 8636527760) 2.0 mg/dL 1.7-2.4 Lab Interpretation (test cod e = 12906-0) [facility] 12:06:10* Test Item Value Reference Range Interpretation Comme nts PHOSPHORUS (test code = 1887815346) 4.3 mg/dL 2.5-5.0 Lab Interpretation (test cod e = 27715-4) Normal [facility] METABOLIC PANEL (NA, K, CL, CO2, GLUCOSE, BUN, CREATININE, CA)2023-03-24 12:06:10* Test Item Value Reference Range Interpretation Comme nts NA (test code = 8248778123) 136 mmol/L 135-145 K (test code = 7448311175) 4.1 mmol/L 3.5-5.0 CL (test code = 8359789743) 100 mmol/L 98-108 CO2 TOTAL (test code = 0539916986) 27 mmol/L 23-31 AGAP (test code = 5065618797) 9 2-16 BUN (test code = 6191161965) 31 mg/dL 7-23 H GLUCOSE (test code = 4128216353) 195 mg/dL 70-110 H CREATININE (test code = 0346319595) 1.46 mg/dL 0.50-1.04 H CALCIUM (test code = 0157335840) 8.0 mg/dL 8.6-10.6 L eGFR (test code = 7812925474) 34.8 mL/min/1.73m2 MAJOR (test code = MAJOR) [...] imaging tests). Lab Interpretation (test code = 67762-2) [facility] 12:06:10* Test Item Value Reference Range Interpretation Comme nts MAGNESIUM (test code = 1415021696) 2.0 mg/dL 1.7-2.4 Lab Interpretation (test cod e = 92925-0) [facility] 12:06:10* Test Item Value Reference Range Interpretation Comme nts PHOSPHORUS (test code = 5980929025) 4.3 mg/dL 2.5-5.0 Lab Interpretation (test cod e = 10190-6) [facility] WITH JIYA4289-88-09 11:06:46* Test Item Value Reference Range Interpretation Comme nts WBC (test code = 6690-2) 7.18 See_Comment [Automated [employer]] The system which generated this result transmitted reference range: 4.30 - 11.10 10*3/?L. The reference range was not used to interpret this result as normal/abnormal. RBC (test code = 789-8) 3.06 See_Comment L [Automated [employer]] The system which generated this result transmitted [...] g/dL 31.6-35.1 L RDW-SD (test code = 95413-0) 52.1 fL 39.0-49.9 H RDW-CV (test code = 788-0) 17.0 % 12.0-15.5 H PLT (test code = 777-3) 170 See_Comment [Automated messa ge] The system which generated this result transmitted reference range: 166 - 358 10*3/?L. The reference range was not used to interpret this result as normal/abnormal. MPV (test code = 32121-3) 10.3 fL 9.5-12.9 NRBC/100 WBC (test code = 4370982446) 0.0 See_Comment [Automated [employer] ssage] The system which generated this result transmitted reference range: 0.0 - 10.0 /100 WBCs. The reference range was not used to interpret this result as normal/abnormal. NRBC x10^3 (test code = 5544533067) See_Comment [Automated messa ge] The system which generated this result transmitted reference range: 10*3/?L. The reference range was not used to interpret this result as normal/abnormal. GRAN MAT (NEUT) % (test code = 770-8) 71.6 % IMM GRAN % (test code = 4410169690) 0.40 % LYMPH % (test code = 736-9) 12.7 % MONO % (test code = 5905-5) 9.5 % EOS % (test code = 713-8) 5.4 % BASO % (test code = 706-2) 0.4 % GRAN MAT x10^3(ANC) (test code = 9072364321) 5.14 10*3/uL 1.88-7.09 IMM GRAN x10^3 (test code = 9636113600) 0.03 10*3/uL 0.00-0.06 LYMPH x10^3 (test code = 731-0) 0.91 10*3/uL 1.32-3.29 L MONO x10^3 (test code = 742-7) 0.68 10*3/uL 0.33-0.92 EOS x10^3 (test code = 711-2) 0.39 10*3/uL 0.03-0.39 BASO x10^3 (test code = 704-7) 0.03 10*3/uL 0.01-0.07 Lab Interpretation (test code = 26894-5) Abnormal [facility] WITH [id number] 11:06:46* Test Item Value Reference Range Interpretation [...] g/dL 31.6-35.1 L RDW-SD (test code = 92125-8) 52.1 fL 39.0-49.9 H RDW-CV (test code = 788-0) 17.0 % 12.0-15.5 H PLT (test code = 777-3) 170 See_Comment [Automated messa ge] The system which generated this result transmitted reference range: 166 - 358 10*3/?L. The reference range was not used to interpret this result as normal/abnormal. MPV (test code = 94677-7) 10.3 fL 9.5-12.9 NRBC/100 WBC (test code = 1339890432) 0.0 See_Comment [Automated [employer] ssage] The system which generated this result transmitted reference range: 0.0 - 10.0 /100 WBCs. The reference range was not used to interpret this result as normal/abnormal. NRBC x10^3 (test code = 6861742421) See_Comment [Automated messa ge] The system which generated this result transmitted reference range: 10*3/?L. The reference range was not used to interpret this result as normal/abnormal. GRAN MAT (NEUT) % (test code = 770-8) 71.6 % IMM GRAN % (test code = 3775804609) 0.40 % LYMPH % (test code = 736-9) 12.7 % MONO % (test code = 5905-5) 9.5 % EOS % (test code = 713-8) 5.4 % BASO % (test code = 706-2) 0.4 % GRAN MAT x10^3(ANC) (test code = 9902932756) 5.14 10*3/uL 1.88-7.09 IMM GRAN x10^3 (test code = 5439845309) 0.03 10*3/uL 0.00-0.06 LYMPH x10^3 (test code = 731-0) 0.91 10*3/uL 1.32-3.29 L MONO x10^3 (test code = 742-7) 0.68 10*3/uL 0.33-0.92 EOS x10^3 (test code = 711-2) 0.39 10*3/uL 0.03-0.39 BASO x10^3 (test code = 704-7) 0.03 10*3/uL 0.01-0.07 Lab Interpretation (test code = 03744-8) Abnormal [facility] GLUCOSE (AUTOMATED)2023-03-24 01:36:11* Test Item Value Reference Range Interpretation Comme nts POCT GLU (test code = 2096807837) 299 mg/dL 70-110 H Lab Interpretation (test cod e = 28047-9) Abnormal [facility] GLUCOSE (AUTOMATED)2023-03-24 01:36:11* Test Item Value Reference Range Interpretation Comme nts POCT GLU (test code = 8758597124) 299 mg/dL 70-110 H Lab Interpretation (test cod e = 56744-7) Abnormal [facility] GLUCOSE (AUTOMATED)2023-03-23 22:47:21* Test Item Value Reference Range Interpretation Comme nts POCT GLU (test code = 1832965515) 180 mg/dL 70-110 H Lab Interpretation (test cod e = 76543-6) Abnormal [facility] GLUCOSE (AUTOMATED)2023-03-23 22:47:21* Test Item Value Reference Range Interpretation Comme nts POCT GLU (test code = 3601866684) 180 mg/dL 70-110 H Lab Interpretation (test cod e = 06545-8) Abnormal [facility] GLUCOSE (AUTOMATED)2023-03-23 18:44:18* Test Item Value Reference Range Interpretation Comme nts POCT GLU (test code = 4908148579) 247 mg/dL 70-110 H Lab Interpretation (test cod e = 88438-6) Abnormal [facility] GLUCOSE (AUTOMATED)2023-03-23 18:44:18* Test Item Value Reference Range Interpretation Comme nts POCT GLU (test code = 6458123579) 247 mg/dL 70-110 H Lab Interpretation (test cod e = 23949-0) Abnormal [facility] GLUCOSE (AUTOMATED)2023-03-23 13:05:30* Test Item Value Reference Range Interpretation Comme nts POCT GLU (test code = 2538314201) 192 mg/dL 70-110 H Lab Interpretation (test cod e = 89997-0) Abnormal [facility] GLUCOSE (AUTOMATED)2023-03-23 13:05:30* Test Item Value Reference Range Interpretation Comme nts POCT GLU (test code = 1662647940) 192 mg/dL 70-110 H Lab Interpretation (test cod e = 84519-1) Abnormal [facility] METABOLIC PANEL (NA, K, CL, CO2, GLUCOSE, BUN, CREATININE, CA)2023-03-23 11:20:33* Test Item Value Reference Range Interpretation Comme nts NA (test code = 8692514595) 135 mmol/L 135-145 K (test code = 0519189689) 4.0 mmol/L 3.5-5.0 CL (test code = 4248826864) 101 mmol/L 98-108 CO2 TOTAL (test code = 5350221879) 25 mmol/L 23-31 AGAP (test code = 1025464353) 9 2-16 BUN (test code = 0868301883) 28 mg/dL 7-23 H GLUCOSE (test code = 9186830964) 155 mg/dL 70-110 H CREATININE (test code = 4871720771) 1.50 mg/dL 0.50-1.04 H CALCIUM (test code = 9513153896) 8.2 mg/dL 8.6-10.6 L eGFR (test code = 0215608063) 33.8 mL/min/1.73m2 MAJOR (test code = MAJOR) [...] imaging tests). Lab Interpretation (test code = 81485-0) [facility] 11:20:33* Test Item Value Reference Range Interpretation Comme [facility] MAGNESIUM (test code = 0344615364) 1.9 mg/dL 1.7-2.4 Lab Interpretation (test cod e = 11094-3) [facility] 11:20:33* Test Item Value Reference Range Interpretation Comme nts PHOSPHORUS (test code = 6416674831) 4.2 mg/dL 2.5-5.0 Lab Interpretation (test cod e = 45914-3) Normal [facility] METABOLIC PANEL (NA, K, CL, CO2, GLUCOSE, BUN, CREATININE, CA)2023-03-23 11:20:33* Test Item Value Reference Range Interpretation Comme nts NA (test code = 7744015384) 135 mmol/L 135-145 K (test code = 8469090386) 4.0 mmol/L 3.5-5.0 CL (test code = 9501109324) 101 mmol/L 98-108 CO2 TOTAL (test code = 2495037923) 25 mmol/L 23-31 AGAP (test code = 5230565314) 9 2-16 BUN (test code = 4013399107) 28 mg/dL 7-23 H GLUCOSE (test code = 4104534251) 155 mg/dL 70-110 H CREATININE (test code = 5472277853) 1.50 mg/dL 0.50-1.04 H CALCIUM (test code = 6956936496) 8.2 mg/dL 8.6-10.6 L eGFR (test code = 4636190506) 33.8 mL/min/1.73m2 MAJOR (test code = MAJOR) [...] imaging tests). Lab Interpretation (test code = 15258-3) [facility] 11:20:33* Test Item Value Reference Range Interpretation Comme nts MAGNESIUM (test code = 1318892285) 1.9 mg/dL 1.7-2.4 Lab Interpretation (test cod e = 71627-2) [facility] 11:20:33* Test Item Value Reference Range Interpretation Comme nts PHOSPHORUS (test code = 6840506241) 4.2 mg/dL 2.5-5.0 Lab Interpretation (test cod e = 98168-3) [facility] [id number] 11:06:32* Test Item Value Reference Range Interpretation Comme nts WBC (test code = 6690-2) 7.86 See_Comment [Automated [employer]] The system which generated this result transmitted reference range: 4.30 - 11.10 10*3/?L. The reference range was not used to interpret this result as normal/abnormal. RBC (test code = 789-8) 3.35 See_Comment L [Automated [employer]] The system which generated this result transmitted [...] g/dL 31.6-35.1 L RDW-SD (test code = 29561-1) 53.4 fL 39.0-49.9 H RDW-CV (test code = 788-0) 17.3 % 12.0-15.5 H PLT (test code = 777-3) 190 See_Comment [Automated messa ge] The system which generated this result transmitted reference range: 166 - 358 10*3/?L. The reference range was not used to interpret this result as normal/abnormal. MPV (test code = 65224-1) 10.3 fL 9.5-12.9 NRBC/100 WBC (test code = 8987845575) 0.0 See_Comment [Automated me ssage] The system which generated this result transmitted reference range: 0.0 - 10.0 /100 WBCs. The reference range was not used to interpret this result as normal/abnormal. NRBC x10^3 (test code = 9735947023) See_Comment [Automated messa ge] The system which generated this result transmitted reference range: 10*3/?L. The reference range was not used to interpret this result as normal/abnormal. GRAN MAT (NEUT) % (test code = 770-8) 74.7 % IMM GRAN % (test code = 6531466094) 0.40 % LYMPH % (test code = 736-9) 10.7 % MONO % (test code = 5905-5) 8.7 % EOS % (test code = 713-8) 5.1 % BASO % (test code = 706-2) 0.4 % GRAN MAT x10^3(ANC) (test code = 9861505884) 5.88 10*3/uL 1.88-7.09 IMM GRAN x10^3 (test code = 4387021858) 0.03 10*3/uL 0.00-0.06 LYMPH x10^3 (test code = 731-0) 0.84 10*3/uL 1.32-3.29 L MONO x10^3 (test code = 742-7) 0.68 10*3/uL 0.33-0.92 EOS x10^3 (test code = 711-2) 0.40 10*3/uL 0.03-0.39 H BASO x10^3 (test code = 704-7) 0.03 10*3/uL 0.01-0.07 Lab Interpretation (test code = 38355-4) Abnormal [facility] WITH [id number] 11:06:32* Test Item Value Reference Range Interpretation [...] g/dL 31.6-35.1 L RDW-SD (test code = 52630-3) 53.4 fL 39.0-49.9 H RDW-CV (test code = 788-0) 17.3 % 12.0-15.5 H PLT (test code = 777-3) 190 See_Comment [Automated messa ge] The system which generated this result transmitted reference range: 166 - 358 10*3/?L. The reference range was not used to interpret this result as normal/abnormal. MPV (test code = 88194-6) 10.3 fL 9.5-12.9 NRBC/100 WBC (test code = 5970854007) 0.0 See_Comment [Automated [employer] ssage] The system which generated this result transmitted reference range: 0.0 - 10.0 /100 WBCs. The reference range was not used to interpret this result as normal/abnormal. NRBC x10^3 (test code = 5456087904) See_Comment [Automated messa ge] The system which generated this result transmitted reference range: 10*3/?L. The reference range was not used to interpret this result as normal/abnormal. GRAN MAT (NEUT) % (test code = 770-8) 74.7 % IMM GRAN % (test code = 4392332282) 0.40 % LYMPH % (test code = 736-9) 10.7 % MONO % (test code = 5905-5) 8.7 % EOS % (test code = 713-8) 5.1 % BASO % (test code = 706-2) 0.4 % GRAN MAT x10^3(ANC) (test code = 2245374289) 5.88 10*3/uL 1.88-7.09 IMM GRAN x10^3 (test code = 3948670802) 0.03 10*3/uL 0.00-0.06 LYMPH x10^3 (test code = 731-0) 0.84 10*3/uL 1.32-3.29 L MONO x10^3 (test code = 742-7) 0.68 10*3/uL 0.33-0.92 EOS x10^3 (test code = 711-2) 0.40 10*3/uL 0.03-0.39 H BASO x10^3 (test code = 704-7) 0.03 10*3/uL 0.01-0.07 Lab Interpretation (test code = 73782-3) Abnormal [facility] GLUCOSE (AUTOMATED)2023-03-23 01:41:44* Test Item Value Reference Range Interpretation Comme nts POCT GLU (test code = 1499923912) 220 mg/dL 70-110 H Lab Interpretation (test cod e = 17260-6) Abnormal [facility] GLUCOSE (AUTOMATED)2023-03-23 01:41:44* Test Item Value Reference Range Interpretation Comme nts POCT GLU (test code = 1172838329) 220 mg/dL 70-110 H Lab Interpretation (test cod e = 92513-7) Abnormal [facility] GLUCOSE (AUTOMATED)2023-03-22 22:39:32* Test Item Value Reference Range Interpretation Comme nts POCT GLU (test code = 3285101112) 258 mg/dL 70-110 H Notified Provide r Lab Interpretation (test code = 38729-4) [facility] 22:39:32* Test Item Value Reference Range Interpretation Comme nts POCT GLU (test code = 8007291311) 258 mg/dL 70-110 H Notified Provide r Lab Interpretation (test code = 14912-2) [facility] 17:10:13* Test Item Value Reference Range Interpretation Comme nts POCT GLU (test code = 5283296929) 184 mg/dL 70-110 H Lab Interpretation (test cod e = 21103-8) [facility] 17:10:13* Test Item Value Reference Range Interpretation Comme nts POCT GLU (test code = 5686702089) 184 mg/dL 70-110 H Lab Interpretation (test cod e = 83931-4) Abnormal [facility] GLUCOSE (AUTOMATED)2023-03-22 17:10:13* Test Item Value Reference Range Interpretation Comme nts POCT GLU (test code = 4295909479) 184 mg/dL 70-110 H Lab Interpretation (test cod e = 04486-5) [facility] 13:06:14* Test Item Value Reference Range Interpretation Comme nts POCT GLU (test code = 6679642384) 167 mg/dL 70-110 H Lab Interpretation (test cod e = 99140-4) [facility] 13:06:14* Test Item Value Reference Range Interpretation Comme nts POCT GLU (test code = 1955097278) 167 mg/dL 70-110 H Lab Interpretation (test cod e = 50652-9) [facility] 13:06:14* Test Item Value Reference Range Interpretation Comme nts POCT GLU (test code = 3547457182) 167 mg/dL 70-110 H Lab Interpretation (test cod e = 05522-5) Abnormal [facility] GLUCOSE (AUTOMATED)2023-03-22 10:45:15* Test Item Value Reference Range Interpretation Comme nts POCT GLU (test code = 1292083275) 169 mg/dL 70-110 H Lab Interpretation (test cod e = 06809-0) Abnormal [facility] GLUCOSE (AUTOMATED)2023-03-22 10:45:15* Test Item Value Reference Range Interpretation Comme nts POCT GLU (test code = 6148416813) 169 mg/dL 70-110 H Lab Interpretation (test cod e = 62349-0) Abnormal [facility] GLUCOSE (AUTOMATED)2023-03-22 10:45:15* Test Item Value Reference Range Interpretation Comme nts POCT GLU (test code = 1931622586) 169 mg/dL 70-110 H Lab Interpretation (test cod e = 80070-9) Abnormal [facility] Cvzue4925-40-87 10:15:51* Test Item Value Reference Range Interpretation Comme nts PHOSPHORUS (test code = 0018745630) 4.9 mg/dL 2.5-5.0 Lab Interpretation (test cod e = 29537-1) Normal [facility] Uwwbr3782-57-06 10:15:51* Test Item Value Reference Range Interpretation Comme nts PHOSPHORUS (test code = 6395243567) 4.9 mg/dL 2.5-5.0 Lab Interpretation (test cod e = 58152-7) Normal [facility] Kwyhl1047-61-75 10:15:51* Test Item Value Reference Range Interpretation Comme nts PHOSPHORUS (test code = 5165259519) 4.9 mg/dL 2.5-5.0 Lab Interpretation (test cod e = 10075-2) Normal [facility] Metabolic Panel (NA, K, CL, CO2, GLUCOSE, BUN, CREATININE, CA)2023-03-22 10:15:50* Test Item Value Reference Range Interpretation Comme nts NA (test code = 2868947975) 138 mmol/L 135-145 K (test code = 4413709538) 5.0 mmol/L 3.5-5.0 CL (test code = 6126274054) 102 mmol/L 98-108 CO2 TOTAL (test code = 5192194125) 27 mmol/L 23-31 AGAP (test code = 1708472328) 9 2-16 BUN (test code = 3581358245) 32 mg/dL 7-23 H GLUCOSE (test code = 5867725767) 174 mg/dL 70-110 H CREATININE (test code = 6689977351) 1.40 mg/dL 0.50-1.04 H CALCIUM (test code = 9355858398) 8.2 mg/dL 8.6-10.6 L eGFR (test code = 6066552871) 36.6 mL/min/1.73m2 MAJOR (test code = MAJOR) [...] imaging tests). Lab Interpretation (test code = 86774-9) [facility] Gcslj7546-01-75 10:15:50* Test Item Value Reference Range Interpretation Comme nts MAGNESIUM (test code = 2743278417) 2.1 mg/dL 1.7-2.4 Lab Interpretation (test cod e = 27259-7) Normal [facility] Metabolic Panel (NA, K, CL, CO2, GLUCOSE, BUN, CREATININE, CA)2023-03-22 10:15:50* Test Item Value Reference Range Interpretation Comme nts NA (test code = 2480331318) 138 mmol/L 135-145 K (test code = 1391143264) 5.0 mmol/L 3.5-5.0 CL (test code = 3093462926) 102 mmol/L 98-108 CO2 TOTAL (test code = 0875165899) 27 mmol/L 23-31 AGAP (test code = 6789484480) 9 2-16 BUN (test code = 7635269003) 32 mg/dL 7-23 H GLUCOSE (test code = 7928926119) 174 mg/dL 70-110 H CREATININE (test code = 3946009806) 1.40 mg/dL 0.50-1.04 H CALCIUM (test code = 6341432522) 8.2 mg/dL 8.6-10.6 L eGFR (test code = 7184644114) 36.6 mL/min/1.73m2 MAJOR (test code = MAJOR) [...] imaging tests). Lab Interpretation (test code = 12808-3) [facility] Tsmbx4124-88-85 10:15:50* Test Item Value Reference Range Interpretation Comme nts MAGNESIUM (test code = 4499538806) 2.1 mg/dL 1.7-2.4 Lab Interpretation (test cod e = 32244-0) [facility] (NA, K, CL, CO2, GLUCOSE, BUN, CREATININE, CA)2023-03-22 10:15:50* Test Item Value Reference Range Interpretation Comme nts NA (test code = 3255005648) 138 mmol/L 135-145 K (test code = 9704777158) 5.0 mmol/L 3.5-5.0 CL (test code = 3778315969) 102 mmol/L 98-108 CO2 TOTAL (test code = 3213114870) 27 mmol/L 23-31 AGAP (test code = 9599593264) 9 2-16 BUN (test code = 4098032826) 32 mg/dL 7-23 H GLUCOSE (test code = 4641133298) 174 mg/dL 70-110 H CREATININE (test code = 9008788171) 1.40 mg/dL 0.50-1.04 H CALCIUM (test code = 8000673246) 8.2 mg/dL 8.6-10.6 L eGFR (test code = 0657682207) 36.6 mL/min/1.73m2 MAJOR (test code = MAJOR) [...] imaging tests). Lab Interpretation (test code = 21017-2) [facility] Jkcji5303-82-79 10:15:50* Test Item Value Reference Range Interpretation Comme nts MAGNESIUM (test code = 4999295578) 2.1 mg/dL 1.7-2.4 Lab Interpretation (test cod e = 34360-4) Normal [facility] with Aafwrefgsqkn4190-99-22 09:47:50* Test Item Value Reference Range Interpretation Comme nts WBC (test code = 6690-2) 10.42 See_Comment [Automated [employer]] The system which generated this result transmitted reference range: 4.30 - 11.10 10*3/?L. The reference range was not used to interpret this result as normal/abnormal. RBC (test code = 789-8) 3.21 See_Comment L [Automated [employer]] The system which generated this result transmitted [...] g/dL 31.6-35.1 L RDW-SD (test code = 57383-1) 51.5 fL 39.0-49.9 H RDW-CV (test code = 788-0) 16.7 % 12.0-15.5 H PLT (test code = 777-3) 184 See_Comment [Automated [employer] ge] The system which generated this result transmitted reference range: 166 - 358 10*3/?L. The reference range was not used to interpret this result as normal/abnormal. MPV (test code = 84713-9) 10.1 fL 9.5-12.9 NRBC/100 WBC (test code = 7048531011) 0.0 See_Comment [Automated [employer] ssage] The system which generated this result transmitted reference range: 0.0 - 10.0 /100 WBCs. The reference range was not used to interpret this result as normal/abnormal. NRBC x10^3 (test code = [id number]) See_Comment [Automated [employer]] The system which generated this result transmitted reference range: 10*3/?L. The reference range was not used to interpret this result as normal/abnormal. GRAN MAT (NEUT) % (test code = 770-8) 84.9 % IMM GRAN % (test code = 5779347419) 0.50 % LYMPH % (test code = 736-9) 6.1 % MONO % (test code = 5905-5) 6.1 % EOS % (test code = 713-8) 2.0 % BASO % (test code = 706-2) 0.4 % GRAN MAT x10^3(ANC) (test code = [id number]) 8.84 10*3/uL 1.88-7.09 H IMM GRAN x10^3 (test code = 6159321463) 0.05 10*3/uL 0.00-0.06 LYMPH x10^3 (test code = 731-0) 0.64 10*3/uL 1.32-3.29 L MONO x10^3 (test code = 742-7) 0.64 10*3/uL 0.33-0.92 EOS x10^3 (test code = 711-2) 0.21 10*3/uL 0.03-0.39 BASO x10^3 (test code = 704-7) 0.04 10*3/uL 0.01-0.07 Lab Interpretation (test code = 06935-7) Abnormal [facility] with [id number] 09:47:50* Test Item Value Reference Range Interpretation [...] g/dL 31.6-35.1 L RDW-SD (test code = 32726-9) 51.5 fL 39.0-49.9 H RDW-CV (test code = 788-0) 16.7 % 12.0-15.5 H PLT (test code = 777-3) 184 See_Comment [Automated messa ge] The system which generated this result transmitted reference range: 166 - 358 10*3/?L. The reference range was not used to interpret this result as normal/abnormal. MPV (test code = 94084-9) 10.1 fL 9.5-12.9 NRBC/100 WBC (test code = 6320000747) 0.0 See_Comment [Automated [employer] ssage] The system which generated this result transmitted reference range: 0.0 - 10.0 /100 WBCs. The reference range was not used to interpret this result as normal/abnormal. NRBC x10^3 (test code = 1997657735) See_Comment [Automated messa ge] The system which generated this result transmitted reference range: 10*3/?L. The reference range was not used to interpret this result as normal/abnormal. GRAN MAT (NEUT) % (test code = 770-8) 84.9 % IMM GRAN % (test code = 6730572102) 0.50 % LYMPH % (test code = 736-9) 6.1 % MONO % (test code = 5905-5) 6.1 % EOS % (test code = 713-8) 2.0 % BASO % (test code = 706-2) 0.4 % GRAN MAT x10^3(ANC) (test code = 0524870924) 8.84 10*3/uL 1.88-7.09 H IMM GRAN x10^3 (test code = 5163680299) 0.05 10*3/uL 0.00-0.06 LYMPH x10^3 (test code = 731-0) 0.64 10*3/uL 1.32-3.29 L MONO x10^3 (test code = 742-7) 0.64 10*3/uL 0.33-0.92 EOS x10^3 (test code = 711-2) 0.21 10*3/uL 0.03-0.39 BASO x10^3 (test code = 704-7) 0.04 10*3/uL 0.01-0.07 Lab Interpretation (test code = 64127-2) Abnormal [facility] with [id number] 09:47:50* Test Item Value Reference Range Interpretation [...] g/dL 31.6-35.1 L RDW-SD (test code = 08663-2) 51.5 fL 39.0-49.9 H RDW-CV (test code = 788-0) 16.7 % 12.0-15.5 H PLT (test code = 777-3) 184 See_Comment [Automated messa ge] The system which generated this result transmitted reference range: 166 - 358 10*3/?L. The reference range was not used to interpret this result as normal/abnormal. MPV (test code = 96888-6) 10.1 fL 9.5-12.9 NRBC/100 WBC (test code = 0348634933) 0.0 See_Comment [Automated [employer] ssage] The system which generated this result transmitted reference range: 0.0 - 10.0 /100 WBCs. The reference range was not used to interpret this result as normal/abnormal. NRBC x10^3 (test code = 2120083590) See_Comment [Automated messa ge] The system which generated this result transmitted reference range: 10*3/?L. The reference range was not used to interpret this result as normal/abnormal. GRAN MAT (NEUT) % (test code = 770-8) 84.9 % IMM GRAN % (test code = 9166168165) 0.50 % LYMPH % (test code = 736-9) 6.1 % MONO % (test code = 5905-5) 6.1 % EOS % (test code = 713-8) 2.0 % BASO % (test code = 706-2) 0.4 % GRAN MAT x10^3(ANC) (test code = 9368901492) 8.84 10*3/uL 1.88-7.09 H IMM GRAN x10^3 (test code = 3867082199) 0.05 10*3/uL 0.00-0.06 LYMPH x10^3 (test code = 731-0) 0.64 10*3/uL 1.32-3.29 L MONO x10^3 (test code = 742-7) 0.64 10*3/uL 0.33-0.92 EOS x10^3 (test code = 711-2) 0.21 10*3/uL 0.03-0.39 BASO x10^3 (test code = 704-7) 0.04 10*3/uL 0.01-0.07 Lab Interpretation (test code = 40946-5) Abnormal [facility] GLUCOSE (AUTOMATED)2023-03-22 09:30:13* Test Item Value Reference Range Interpretation Comme nts POCT GLU (test code = 4479433665) 183 mg/dL 70-110 H Lab Interpretation (test cod e = 13945-0) Abnormal [facility] GLUCOSE (AUTOMATED)2023-03-22 09:30:13* Test Item Value Reference Range Interpretation Comme nts POCT GLU (test code = 2435062455) 183 mg/dL 70-110 H Lab Interpretation (test cod e = 20259-4) Abnormal [facility] GLUCOSE (AUTOMATED)2023-03-22 09:30:13* Test Item Value Reference Range Interpretation Comme nts POCT GLU (test code = 1894889175) 183 mg/dL 70-110 H Lab Interpretation (test cod e = 19194-8) [facility] [id number] 07:16:53* Test Item Value Reference Range Interpretation Comme nts PH (test code = 5963129055) 7.30 7.32-7.42 L PCO2 JARRET (test code = 5285090514) 50 See_Comment [Automated messa ge] The system which generated this result transmitted reference range: 41 - 51 mmHg. The reference range was not used to interpret this result as normal/abnormal. PO2 JARRET (test code = 6138238595) 39 See_Comment [Automated messa ge] The system which generated this result transmitted reference range: 25 - 40 mmHg. The reference range was not used to interpret this result as normal/abnormal. HCO3 JARRET (test code = 0909395095) 24 See_Comment [Automated messa ge] The system which generated this result transmitted reference range: 24 - 28 mEq/L. The reference range was not used to interpret this result as normal/abnormal. AC VBE(BEAKER) (test code = 2822532278) -2.3 mEq/L THB JARRET (test code = 8125955599) 9.6 g/dL 12.0-16.0 L %O2HB JARRET (test code = 6126725573) 69.7 % 52.0-63.0 H %COHB JARRET (test code = 1828675182) 1.2 % 0.0-1.5 %METHB JARRET (test code = 9343343973) 0.3 % 0.4-1.5 L VOL%O2 JARRET (test code = 7327113699) 9.4 % 6.0-12.0 NA (test code = 3602308528) 126 mmol/L 135-145 L K+ (test code = 7326364176) 5.0 mmol/L 3.5-5.0 AC CA IONZ (test code = 4645786375) 4.40 mg/dL 4.50-5.30 L GLUCOSE (test code = 0527352043) 195 mg/dL 70-110 H LACTIC ACID (test code = 8827400226) 1.96 mmol/L 0.50-2.20 Lab Interpretation (test code = 96621-8) [facility] [id number] 07:16:53* Test Item Value Reference Range Interpretation Comme nts PH (test code = 9739425894) 7.30 7.32-7.42 L PCO2 JARRET (test code = 4585038251) 50 See_Comment [Automated messa ge] The system which generated this result transmitted reference range: 41 - 51 mmHg. The reference range was not used to interpret this result as normal/abnormal. PO2 JARRET (test code = 8881772251) 39 See_Comment [Automated messa ge] The system which generated this result transmitted reference range: 25 - 40 mmHg. The reference range was not used to interpret this result as normal/abnormal. HCO3 JRARET (test code = 4205369363) 24 See_Comment [Automated messa ge] The system which generated this result transmitted reference range: 24 - 28 mEq/L. The reference range was not used to interpret this result as normal/abnormal. AC VBE(BEAKER) (test code = 8777535496) -2.3 mEq/L THB JARRET (test code = 6681662758) 9.6 g/dL 12.0-16.0 L %O2HB JARRET (test code = 7884280734) 69.7 % 52.0-63.0 H %COHB JARRET (test code = 6434223749) 1.2 % 0.0-1.5 %METHB JARRET (test code = 6117566395) 0.3 % 0.4-1.5 L VOL%O2 JARRET (test code = 0170704824) 9.4 % 6.0-12.0 NA (test code = 3612358963) 126 mmol/L 135-145 L K+ (test code = 5547637535) 5.0 mmol/L 3.5-5.0 AC CA IONZ (test code = 1143802607) 4.40 mg/dL 4.50-5.30 L GLUCOSE (test code = 3903578135) 195 mg/dL 70-110 H LACTIC ACID (test code = 5865056255) 1.96 mmol/L 0.50-2.20 Lab Interpretation (test code = 79600-1) [facility] [id number] 07:16:53* Test Item Value Reference Range Interpretation Comme nts PH (test code = 1848761258) 7.30 7.32-7.42 L PCO2 JARRET (test code = 6112958672) 50 See_Comment [Automated messa ge] The system which generated this result transmitted reference range: 41 - 51 mmHg. The reference range was not used to interpret this result as normal/abnormal. PO2 JARRET (test code = 5661448403) 39 See_Comment [Automated messa ge] The system which generated this result transmitted reference range: 25 - 40 mmHg. The reference range was not used to interpret this result as normal/abnormal. HCO3 JARRET (test code = 5860002700) 24 See_Comment [Automated messa ge] The system which generated this result transmitted reference range: 24 - 28 mEq/L. The reference range was not used to interpret this result as normal/abnormal. AC VBE(BEAKER) (test code = 9023790882) -2.3 mEq/L THB JARRET (test code = 2298665683) 9.6 g/dL 12.0-16.0 L %O2HB JARRET (test code = 6242440894) 69.7 % 52.0-63.0 H %COHB JARRET (test code = 2689220860) 1.2 % 0.0-1.5 %METHB JARRET (test code = 7011487642) 0.3 % 0.4-1.5 L VOL%O2 JARRET (test code = 0037445448) 9.4 % 6.0-12.0 NA (test code = 7933891006) 126 mmol/L 135-145 L K+ (test code = 5778651121) 5.0 mmol/L 3.5-5.0 AC CA IONZ (test code = 2194465738) 4.40 mg/dL 4.50-5.30 L GLUCOSE (test code = 5530993445) 195 mg/dL 70-110 H LACTIC ACID (test code = 0136615114) 1.96 mmol/L 0.50-2.20 Lab Interpretation (test code = 64209-8) Abnormal [facility] GLUCOSE (AUTOMATED)2023-03-22 05:09:14* Test Item Value Reference Range Interpretation Comme nts POCT GLU (test code = 6803991986) 244 mg/dL 70-110 H Lab Interpretation (test cod e = 60886-8) Abnormal [facility] GLUCOSE (AUTOMATED)2023-03-22 05:09:14* Test Item Value Reference Range Interpretation Comme nts POCT GLU (test code = 7834344421) 244 mg/dL 70-110 H Lab Interpretation (test cod e = 91499-4) Abnormal [facility] GLUCOSE (AUTOMATED)2023-03-22 05:09:14* Test Item Value Reference Range Interpretation Comme nts POCT GLU (test code = 3705465374) 244 mg/dL 70-110 H Lab Interpretation (test cod e = 63975-5) [facility] [id number] 03:14:53* Test Item Value Reference Range Interpretation Comme nts PH (test code = 4337633134) 7.32 7.32-7.42 PCO2 JARRET (test code = 2354176412) 55 See_Comment H [Automated messa ge] The system which generated this result transmitted reference range: 41 - 51 mmHg. The reference range was not used to interpret this result as normal/abnormal. PO2 JARRET (test code = 6789633531) 48 See_Comment H [Automated messa ge] The system which generated this result transmitted reference range: 25 - 40 mmHg. The reference range was not used to interpret this result as normal/abnormal. HCO3 JARRET (test code = 0390912977) 27 See_Comment [Automated messa ge] The system which generated this result transmitted reference range: 24 - 28 mEq/L. The reference range was not used to interpret this result as normal/abnormal. AC VBE(BEAKER) (test code = 3328864808) 0.6 mEq/L THB JARRET (test code = 7898759681) 10.9 g/dL 12.0-16.0 L %O2HB JARRET (test code = 2442438001) 80.9 % 52.0-63.0 H %COHB JARRET (test code = 1956602724) 1.4 % 0.0-1.5 %METHB JARRET (test code = 4788601328) 0.3 % 0.4-1.5 L VOL%O2 JARRET (test code = 1747731430) 12.4 % 6.0-12.0 H NA (test code = 7517792325) 131 mmol/L 135-145 L K+ (test code = 8305557973) 4.8 mmol/L 3.5-5.0 AC CA IONZ (test code = 4855503334) 4.40 mg/dL 4.50-5.30 L GLUCOSE (test code = 4600827764) 257 mg/dL 70-110 H LACTIC ACID (test code = 4222662305) 2.26 mmol/L 0.50-2.20 H Lab Interpretation (test code = 42469-7) [facility] [id number] 03:14:53* Test Item Value Reference Range Interpretation Comme nts PH (test code = 3558278191) 7.32 7.32-7.42 PCO2 JARRET (test code = 2026230574) 55 See_Comment H [Automated messa ge] The system which generated this result transmitted reference range: 41 - 51 mmHg. The reference range was not used to interpret this result as normal/abnormal. PO2 JARRET (test code = 8647771785) 48 See_Comment H [Automated messa ge] The system which generated this result transmitted reference range: 25 - 40 mmHg. The reference range was not used to interpret this result as normal/abnormal. HCO3 JARRET (test code = 2653922199) 27 See_Comment [Automated messa ge] The system which generated this result transmitted reference range: 24 - 28 mEq/L. The reference range was not used to interpret this result as normal/abnormal. AC VBE(BEAKER) (test code = 5631434658) 0.6 mEq/L THB JARRET (test code = 2408848247) 10.9 g/dL 12.0-16.0 L %O2HB JARRET (test code = 3186729438) 80.9 % 52.0-63.0 H %COHB JARRET (test code = 6157502366) 1.4 % 0.0-1.5 %METHB JARRET (test code = 5279206377) 0.3 % 0.4-1.5 L VOL%O2 JARRET (test code = 6677339191) 12.4 % 6.0-12.0 H NA (test code = 4513158621) 131 mmol/L 135-145 L K+ (test code = 3362191651) 4.8 mmol/L 3.5-5.0 AC CA IONZ (test code = 2815449976) 4.40 mg/dL 4.50-5.30 L GLUCOSE (test code = 1263211868) 257 mg/dL 70-110 H LACTIC ACID (test code = 4933600789) 2.26 mmol/L 0.50-2.20 H Lab Interpretation (test code = 11449-8) [facility] [id number] 03:14:53* Test Item Value Reference Range Interpretation Comme nts PH (test code = 2198360242) 7.32 7.32-7.42 PCO2 JARRET (test code = 2238719799) 55 See_Comment H [Automated messa ge] The system which generated this result transmitted reference range: 41 - 51 mmHg. The reference range was not used to interpret this result as normal/abnormal. PO2 JARRET (test code = 6248845352) 48 See_Comment H [Automated messa ge] The system which generated this result transmitted reference range: 25 - 40 mmHg. The reference range was not used to interpret this result as normal/abnormal. HCO3 JARRET (test code = 2145217931) 27 See_Comment [Automated messa ge] The system which generated this result transmitted reference range: 24 - 28 mEq/L. The reference range was not used to interpret this result as normal/abnormal. AC VBE(BEAKER) (test code = 1887801374) 0.6 mEq/L THB JARERT (test code = 6489424256) 10.9 g/dL 12.0-16.0 L %O2HB JARRET (test code = 0145996040) 80.9 % 52.0-63.0 H %COHB JARRET (test code = 6680792634) 1.4 % 0.0-1.5 %METHB JARRET (test code = 5416080494) 0.3 % 0.4-1.5 L VOL%O2 JARRET (test code = 4007066038) 12.4 % 6.0-12.0 H NA (test code = 7029928233) 131 mmol/L 135-145 L K+ (test code = 6362399452) 4.8 mmol/L 3.5-5.0 AC CA IONZ (test code = 4549611518) 4.40 mg/dL 4.50-5.30 L GLUCOSE (test code = 3075055661) 257 mg/dL 70-110 H LACTIC ACID (test code = 1837627159) 2.26 mmol/L 0.50-2.20 H Lab Interpretation (test code = 25180-8) [facility] [id number] 00:38:05* Test Item Value Reference Range Interpretation Comme nts PH (test code = 2) 7.34 7.35-7.45 L PCO2 (test code = 3059519917) 52 See_Comment H [Automated messa ge] The system which generated this result transmitted reference range: 35 - 45 mmHg. The reference range was not used to interpret this result as normal/abnormal. PO2 (test code = 7429517861) 131 See_Comment H [Automated messa ge] The system which generated this result transmitted reference range: 80 - 100 mmHg. The reference range was not used to interpret this result as normal/abnormal. HCO3 (test code = 6738246321) 27 See_Comment H [Automated messa ge] The system which generated this result transmitted reference range: 22 - 26 mEq/L. The reference range was not used to interpret this result as normal/abnormal. BE (test code = 4761193000) 0.8 See_Comment [Automated messa ge] The system which generated this result transmitted reference range: -3.0 - 3.0 mEq/L. The reference range was not used to interpret this result as normal/abnormal. THB (test code = 1241780910) 13.3 g/dL 12.0-16.0 %O2HB (test code = 0024591284) 97.3 % 94.0-99.0 %COHB ART (test code = 8932742141) 0.4 % 0.0-1.5 %METHB ART (test code = 2799781976) 0.3 % 0.4-1.5 L VOL%O2 ART (test code = 4987551363) 18.4 % 15.0-23.0 NA (test code = 9072386284) 135 mmol/L 135-145 K+ (test code = 2524741860) 4.9 mmol/L 3.5-5.0 AC CA IONZ (test code = 9835210242) 4.50 mg/dL 4.50-5.30 GLUCOSE (test code = 9704898936) 285 mg/dL 70-110 H LACTIC ACID (test code = 7823581736) 1.77 mmol/L 0.50-2.20 QUES Lab Interpretation (test code = 18023-8) [facility] L[facility] [id number] 00:38:05* Test Item Value Reference Range Interpretation Comme nts PH (test code = 2) 7.34 7.35-7.45 L PCO2 (test code = 6512314750) 52 See_Comment H [Automated messa ge] The system which generated this result transmitted reference range: 35 - 45 mmHg. The reference range was not used to interpret this result as normal/abnormal. PO2 (test code = 7771533166) 131 See_Comment H [Automated messa ge] The system which generated this result transmitted reference range: 80 - 100 mmHg. The reference range was not used to interpret this result as normal/abnormal. HCO3 (test code = 3061462791) 27 See_Comment H [Automated messa ge] The system which generated this result transmitted reference range: 22 - 26 mEq/L. The reference range was not used to interpret this result as normal/abnormal. BE (test code = 6653055428) 0.8 See_Comment [Automated messa ge] The system which generated this result transmitted reference range: -3.0 - 3.0 mEq/L. The reference range was not used to interpret this result as normal/abnormal. THB (test code = 9890269116) 13.3 g/dL 12.0-16.0 %O2HB (test code = 7702469379) 97.3 % 94.0-99.0 %COHB ART (test code = 5424855229) 0.4 % 0.0-1.5 %METHB ART (test code = 2701131625) 0.3 % 0.4-1.5 L VOL%O2 ART (test code = 3571602802) 18.4 % 15.0-23.0 NA (test code = 7270196404) 135 mmol/L 135-145 K+ (test code = 6952871059) 4.9 mmol/L 3.5-5.0 AC CA IONZ (test code = 6182629628) 4.50 mg/dL 4.50-5.30 GLUCOSE (test code = 2242024380) 285 mg/dL 70-110 H LACTIC ACID (test code = 7452486277) 1.77 mmol/L 0.50-2.20 QUES Lab Interpretation (test code = 51691-7) [facility] Lactic [id number] 00:38:05* Test Item Value Reference Range Interpretation Comme nts PH (test code = 2) 7.34 7.35-7.45 L PCO2 (test code = 0980893526) 52 See_Comment H [Automated messa ge] The system which generated this result transmitted reference range: 35 - 45 mmHg. The reference range was not used to interpret this result as normal/abnormal. PO2 (test code = 2994302751) 131 See_Comment H [Automated messa ge] The system which generated this result transmitted reference range: 80 - 100 mmHg. The reference range was not used to interpret this result as normal/abnormal. HCO3 (test code = 7307087440) 27 See_Comment H [Automated messa ge] The system which generated this result transmitted reference range: 22 - 26 mEq/L. The reference range was not used to interpret this result as normal/abnormal. BE (test code = 4817654312) 0.8 See_Comment [Automated messa ge] The system which generated this result transmitted reference range: -3.0 - 3.0 mEq/L. The reference range was not used to interpret this result as normal/abnormal. THB (test code = 5865054881) 13.3 g/dL 12.0-16.0 %O2HB (test code = 8089098104) 97.3 % 94.0-99.0 %COHB ART (test code = 3112293673) 0.4 % 0.0-1.5 %METHB ART (test code = 4807390959) 0.3 % 0.4-1.5 L VOL%O2 ART (test code = 0782954922) 18.4 % 15.0-23.0 NA (test code = 6150319162) 135 mmol/L 135-145 K+ (test code = 3013854484) 4.9 mmol/L 3.5-5.0 AC CA IONZ (test code = 7905723483) 4.50 mg/dL 4.50-5.30 GLUCOSE (test code = 5616118164) 285 mg/dL 70-110 H LACTIC ACID (test code = 0460594170) 1.77 mmol/L 0.50-2.20 QUES Lab Interpretation (test code = 62389-1) Abnormal [facility] METABOLIC PANEL (NA, K, CL, CO2, GLUCOSE, BUN, CREATININE, CA)2023-03-21 22:04:31* Test Item Value Reference Range Interpretation Comme nts NA (test code = 2252565688) 137 mmol/L 135-145 K (test code = 0358116088) 5.1 mmol/L 3.5-5.0 H CL (test code = 8797629378) 103 mmol/L 98-108 CO2 TOTAL (test code = 0798571379) 25 mmol/L 23-31 AGAP (test code = 5121280450) 9 2-16 BUN (test code = 5810574283) 31 mg/dL 7-23 H GLUCOSE (test code = 2000844070) 337 mg/dL 70-110 H CREATININE (test code = 8453351262) 1.40 mg/dL 0.50-1.04 H CALCIUM (test code = 8710682751) 8.6 mg/dL 8.6-10.6 eGFR (test code = 5963658656) 36.6 mL/min/1.73m2 MAJOR (test code = MAJOR) [...] imaging tests). Lab Interpretation (test code = 76739-7) [facility] Test Item Value Reference Range Interpretation Comme nts MAGNESIUM (test code = 8882382102) 2.2 mg/dL 1.7-2.4 Lab Interpretation (test cod e = 32642-8) [facility]* Test Item Value Reference Range Interpretation Comme nts PHOSPHORUS (test code = 5812108272) 5.4 mg/dL 2.5-5.0 H Lab Interpretation (test cod e = 12569-0) [facility] (NA, K, CL, CO2, GLUCOSE, BUN, CREATININE, CA)2023-03-21 22:04:31* Test Item Value Reference Range Interpretation Comme nts NA (test code = 8662399902) 137 mmol/L 135-145 K (test code = 5712617490) 5.1 mmol/L 3.5-5.0 H CL (test code = 8390886888) 103 mmol/L 98-108 CO2 TOTAL (test code = 5552375192) 25 mmol/L 23-31 AGAP (test code = 4298680189) 9 2-16 BUN (test code = 1449654843) 31 mg/dL 7-23 H GLUCOSE (test code = 6121364583) 337 mg/dL 70-110 H CREATININE (test code = 9045189161) 1.40 mg/dL 0.50-1.04 H CALCIUM (test code = 1586592454) 8.6 mg/dL 8.6-10.6 eGFR (test code = 0916633325) 36.6 mL/min/1.73m2 MAJOR (test code = MAJOR) [...] imaging tests). Lab Interpretation (test code = 47319-8) [facility] 22:04:31* Test Item Value Reference Range Interpretation Comme nts MAGNESIUM (test code = 3535173159) 2.2 mg/dL 1.7-2.4 Lab Interpretation (test cod e = 36698-3) [facility] 22:04:31* Test Item Value Reference Range Interpretation Comme nts PHOSPHORUS (test code = 6566945687) 5.4 mg/dL 2.5-5.0 H Lab Interpretation (test cod e = 54869-8) [facility] (NA, K, CL, CO2, GLUCOSE, BUN, CREATININE, CA)2023-03-21 22:04:31* Test Item Value Reference Range Interpretation Comme nts NA (test code = 9549935645) 137 mmol/L 135-145 K (test code = 4400560983) 5.1 mmol/L 3.5-5.0 H CL (test code = 8857279759) 103 mmol/L 98-108 CO2 TOTAL (test code = 7176073986) 25 mmol/L 23-31 AGAP (test code = 9361266444) 9 2-16 BUN (test code = 9768897703) 31 mg/dL 7-23 H GLUCOSE (test code = 3903495911) 337 mg/dL 70-110 H CREATININE (test code = 5558881705) 1.40 mg/dL 0.50-1.04 H CALCIUM (test code = 6376192055) 8.6 mg/dL 8.6-10.6 eGFR (test code = 0653683483) 36.6 mL/min/1.73m2 MAJOR (test code = MAJOR) [...] imaging tests). Lab Interpretation (test code = 81873-8) [facility] 22:04:31* Test Item Value Reference Range Interpretation Comme nts MAGNESIUM (test code = 2865888483) 2.2 mg/dL 1.7-2.4 Lab Interpretation (test cod e = 94455-9) [facility] 22:04:31* Test Item Value Reference Range Interpretation Comme nts PHOSPHORUS (test code = 3040589405) 5.4 mg/dL 2.5-5.0 H Lab Interpretation (test cod e = 37442-1) Abnormal [facility] GLUCOSE (AUTOMATED)2023-03-21 21:42:12* Test Item Value Reference Range Interpretation Comme nts POCT GLU (test code = 9351297170) 337 mg/dL 70-110 H Lab Interpretation (test cod e = 90440-4) Abnormal [facility] GLUCOSE (AUTOMATED)2023-03-21 21:42:12* Test Item Value Reference Range Interpretation Comme nts POCT GLU (test code = 3052260404) 337 mg/dL 70-110 H Lab Interpretation (test cod e = 94822-9) Abnormal [facility] GLUCOSE (AUTOMATED)2023-03-21 21:42:12* Test Item Value Reference Range Interpretation Comme nts POCT GLU (test code = 6546056452) 337 mg/dL 70-110 H Lab Interpretation (test cod e = 86452-2) [facility] Lactic [id number] 21:22:42* Test Item Value Reference Range Interpretation Comme nts PH (test code = 2) 7.21 7.35-7.45 L PCO2 (test code = [id number]) 65 See_Comment H [Automated messa ge] The system which generated this result transmitted reference range: 35 - 45 mmHg. The reference range was not used to interpret this result as normal/abnormal. PO2 (test code = [id number]) 79 See_Comment L [Automated messa ge] The system which generated this result transmitted reference range: 80 - 100 mmHg. The reference range was not used to interpret this result as normal/abnormal. HCO3 (test code = [id number]) 25 See_Comment [Automated messa ge] The system which generated this result transmitted reference range: 22 - 26 mEq/L. The reference range was not used to interpret this result as normal/abnormal. BE (test code = [id number]) -3.6 See_Comment L [Automated messa ge] The system which generated this result transmitted reference range: -3.0 - 3.0 mEq/L. The reference range was not used to interpret this result as normal/abnormal. THB (test code = [id number]) 11.1 g/dL 12.0-16.0 L %O2HB (test code = 0455839733) 91.4 % 94.0-99.0 L %COHB ART (test code = [id number]) 1.2 % 0.0-1.5 %METHB ART (test code = 5709820688) 0.3 % 0.4-1.5 L VOL%O2 ART (test code = 4290164885) 14.4 % 15.0-23.0 L NA (test code = 5200567938) 135 mmol/L 135-145 K+ (test code = 3807230725) 4.9 mmol/L 3.5-5.0 AC CA IONZ (test code = 5378789057) 4.60 mg/dL 4.50-5.30 GLUCOSE (test code = 1270646650) 347 mg/dL 70-110 H LACTIC ACID (test code = 2043020278) 0.78 mmol/L 0.50-2.20 Lab Interpretation (test code = 92726-0) [facility] Lactic [id number] 21:22:42* Test Item Value Reference Range Interpretation Comme nts PH (test code = 2) 7.21 7.35-7.45 L PCO2 (test code = 0993329955) 65 See_Comment H [Automated messa ge] The system which generated this result transmitted reference range: 35 - 45 mmHg. The reference range was not used to interpret this result as normal/abnormal. PO2 (test code = 0871356696) 79 See_Comment L [Automated messa ge] The system which generated this result transmitted reference range: 80 - 100 mmHg. The reference range was not used to interpret this result as normal/abnormal. HCO3 (test code = 8428999979) 25 See_Comment [Automated messa ge] The system which generated this result transmitted reference range: 22 - 26 mEq/L. The reference range was not used to interpret this result as normal/abnormal. BE (test code = 3038590059) -3.6 See_Comment L [Automated messa ge] The system which generated this result transmitted reference range: -3.0 - 3.0 mEq/L. The reference range was not used to interpret this result as normal/abnormal. THB (test code = 9001772417) 11.1 g/dL 12.0-16.0 L %O2HB (test code = 7855836425) 91.4 % 94.0-99.0 L %COHB ART (test code = 3184547313) 1.2 % 0.0-1.5 %METHB ART (test code = 1610904999) 0.3 % 0.4-1.5 L VOL%O2 ART (test code = 0195756049) 14.4 % 15.0-23.0 L NA (test code = 7570216695) 135 mmol/L 135-145 K+ (test code = 8654851668) 4.9 mmol/L 3.5-5.0 AC CA IONZ (test code = 5066788051) 4.60 mg/dL 4.50-5.30 GLUCOSE (test code = 8254804475) 347 mg/dL 70-110 H LACTIC ACID (test code = 0604303647) 0.78 mmol/L 0.50-2.20 Lab Interpretation (test code = 25571-7) [facility] + Lactic [id number] 21:22:42* Test Item Value Reference Range Interpretation Comme nts PH (test code = 2) 7.21 7.35-7.45 L PCO2 (test code = 3644001783) 65 See_Comment H [Automated messa ge] The system which generated this result transmitted reference range: 35 - 45 mmHg. The reference range was not used to interpret this result as normal/abnormal. PO2 (test code = 3053514377) 79 See_Comment L [Automated messa ge] The system which generated this result transmitted reference range: 80 - 100 mmHg. The reference range was not used to interpret this result as normal/abnormal. HCO3 (test code = 2670802545) 25 See_Comment [Automated messa ge] The system which generated this result transmitted reference range: 22 - 26 mEq/L. The reference range was not used to interpret this result as normal/abnormal. BE (test code = 5668036922) -3.6 See_Comment L [Automated messa ge] The system which generated this result transmitted reference range: -3.0 - 3.0 mEq/L. The reference range was not used to interpret this result as normal/abnormal. THB (test code = 5619060424) 11.1 g/dL 12.0-16.0 L %O2HB (test code = 7632829856) 91.4 % 94.0-99.0 L %COHB ART (test code = 9964249136) 1.2 % 0.0-1.5 %METHB ART (test code = 0709813224) 0.3 % 0.4-1.5 L VOL%O2 ART (test code = 6980860864) 14.4 % 15.0-23.0 L NA (test code = 9623679970) 135 mmol/L 135-145 K+ (test code = 4632348273) 4.9 mmol/L 3.5-5.0 AC CA IONZ (test code = 9214644399) 4.60 mg/dL 4.50-5.30 GLUCOSE (test code = 0374460961) 347 mg/dL 70-110 H LACTIC ACID (test code = 1921725270) 0.78 mmol/L 0.50-2.20 Lab Interpretation (test code = 32721-9) [facility]normal [facility] / [id number] 21:10:04* Test Item Value Reference Range Interpretation Comme [facility] PROTIME PATIENT (test code = 5964-2) 12.8 See_Comment H [Automated [employer]] The system which generated this result transmitted reference range: 10.1 - 12.6 Seconds. The reference range was not used to interpret this result as normal/abnormal. INR (test code = 6301-6) 1.1 Normal INR <1.1; Warfarin Therapeutic range 2.0 to 3.0 or 2.5 to 3.5, depending upon the indications. Lab Interpretation (test code = 82020-5) [facility]era[facility] 21:10:04* Test Item Value Reference Range Interpretation Comme [facility] APTT Patient (test code = 3173-2) 87 See_Comment H [Automated messa ge] The system which generated this result transmitted reference range: 26 - 36 Seconds. The reference range was not used to interpret this result as normal/abnormal. Lab Interpretation (test code = 12229-2) [facility]normal [facility] CenterProthrombin Time / [id number] 21:10:04* Test Item Value Reference Range Interpretation [...] the indications. Lab Interpretation (test code = 63417-1) [facility] 21:10:04* Test Item Value Reference Range Interpretation Comme [facility] APTT Patient (test code = 3173-2) 87 See_Comment H [Automated messa ge] The system which generated this result transmitted reference range: 26 - 36 Seconds. The reference range was not used to interpret this result as normal/abnormal. Lab Interpretation (test code = 65439-6) [facility]normal [facility] Center[facility] / [id number] 21:10:04* Test Item Value Reference Range Interpretation [...] the indications. Lab Interpretation (test code = 92284-1) [facility] 21:10:04* Test Item Value Reference Range Interpretation Comme [facility] APTT Patient (test code = 3173-2) 87 See_Comment H [Automated messa ge] The system which generated this result transmitted reference range: 26 - 36 Seconds. The reference range was not used to interpret this result as normal/abnormal. Lab Interpretation (test code = 33533-1) [facility]normal [facility] CenterCB WITH [id number] 21:03:24* Test Item Value Reference Range Interpretation [...] 31.6 g/dL 31.6-35.1 RDW-SD (test code = 69350-3) 52.7 fL 39.0-49.9 H RDW-CV (test code = 788-0) 17.2 % 12.0-15.5 H PLT (test code = 777-3) 218 See_Comment [Automated message] The system which generated this result transmitted reference range: 166 - 358 10*3/?L. The reference range was not used to interpret this result as normal/abnormal. MPV (test code = 44095-3) 10.9 fL 9.5-12.9 NRBC/100 WBC (test code = 7458795565) 0.0 See_Comment [Automated message] The system which generated this result transmitted reference range: 0.0 - 10.0 /100 WBCs. The reference range was not used to interpret this result as normal/abnormal. NRBC x10^3 (test code = 5109392936) See_Comment [Automated message] The system which generated this result transmitted reference range: 10*3/?L. The reference range was not used to interpret this result as normal/abnormal. GRAN MAT (NEUT) % (test code = 770-8) 83.2 % IMM GRAN % (test code = 6081799777) 0.90 % LYMPH % (test code = 736-9) 6.4 % MONO % (test code = 5905-5) 5.2 % EOS % (test code = 713-8) 3.9 % BASO % (test code = 706-2) 0.4 % GRAN MAT x10^3(ANC) (test code = 6088104884) 12.70 10*3/uL 1.88-7.09 H IMM GRAN x10^3 (test code = 8611637957) 0.13 10*3/uL 0.00-0.06 H LYMPH x10^3 (test code = 731-0) 0.97 10*3/uL 1.32-3.29 L MONO x10^3 (test code = 742-7) 0.79 10*3/uL 0.33-0.92 EOS x10^3 (test code = 711-2) 0.59 10*3/uL 0.03-0.39 H BASO x10^3 (test code = 704-7) 0.06 10*3/uL 0.01-0.07 Lab Interpretation (test code = 33588-7) Abnormal [facility] WITH [id number] 21:03:24* Test Item Value Reference Range Interpretation [...] 31.6 g/dL 31.6-35.1 RDW-SD (test code = 51968-9) 52.7 fL 39.0-49.9 H RDW-CV (test code = 788-0) 17.2 % 12.0-15.5 H PLT (test code = 777-3) 218 See_Comment [Automated message] The system which generated this result transmitted reference range: 166 - 358 10*3/?L. The reference range was not used to interpret this result as normal/abnormal. MPV (test code = 69381-6) 10.9 fL 9.5-12.9 NRBC/100 WBC (test code = 5623084274) 0.0 See_Comment [Automated message] The system which generated this result transmitted reference range: 0.0 - 10.0 /100 WBCs. The reference range was not used to interpret this result as normal/abnormal. NRBC x10^3 (test code = 9944164087) See_Comment [Automated message] The system which generated this result transmitted reference range: 10*3/?L. The reference range was not used to interpret this result as normal/abnormal. GRAN MAT (NEUT) % (test code = 770-8) 83.2 % IMM GRAN % (test code = 2443454699) 0.90 % LYMPH % (test code = 736-9) 6.4 % MONO % (test code = 5905-5) 5.2 % EOS % (test code = 713-8) 3.9 % BASO % (test code = 706-2) 0.4 % GRAN MAT x10^3(ANC) (test code = 8545692349) 12.70 10*3/uL 1.88-7.09 H IMM GRAN x10^3 (test code = 0492488406) 0.13 10*3/uL 0.00-0.06 H LYMPH x10^3 (test code = 731-0) 0.97 10*3/uL 1.32-3.29 L MONO x10^3 (test code = 742-7) 0.79 10*3/uL 0.33-0.92 EOS x10^3 (test code = 711-2) 0.59 10*3/uL 0.03-0.39 H BASO x10^3 (test code = 704-7) 0.06 10*3/uL 0.01-0.07 Lab Interpretation (test code = 63751-2) Abnormal [facility] WITH [id number] 21:03:24* Test Item Value Reference Range Interpretation [...] 31.6 g/dL 31.6-35.1 RDW-SD (test code = 63153-1) 52.7 fL 39.0-49.9 H RDW-CV (test code = 788-0) 17.2 % 12.0-15.5 H PLT (test code = 777-3) 218 See_Comment [Automated message] The system which generated this result transmitted reference range: 166 - 358 10*3/?L. The reference range was not used to interpret this result as normal/abnormal. MPV (test code = 80777-0) 10.9 fL 9.5-12.9 NRBC/100 WBC (test code = 8428578686) 0.0 See_Comment [Automated message] The system which generated this result transmitted reference range: 0.0 - 10.0 /100 WBCs. The reference range was not used to interpret this result as normal/abnormal. NRBC x10^3 (test code = 2733337557) See_Comment [Automated message] The system which generated this result transmitted reference range: 10*3/?L. The reference range was not used to interpret this result as normal/abnormal. GRAN MAT (NEUT) % (test code = 770-8) 83.2 % IMM GRAN % (test code = 2160381861) 0.90 % LYMPH % (test code = 736-9) 6.4 % MONO % (test code = 5905-5) 5.2 % EOS % (test code = 713-8) 3.9 % BASO % (test code = 706-2) 0.4 % GRAN MAT x10^3(ANC) (test code = 9673277459) 12.70 10*3/uL 1.88-7.09 H IMM GRAN x10^3 (test code = 5859000517) 0.13 10*3/uL 0.00-0.06 H LYMPH x10^3 (test code = 731-0) 0.97 10*3/uL 1.32-3.29 L MONO x10^3 (test code = 742-7) 0.79 10*3/uL 0.33-0.92 EOS x10^3 (test code = 711-2) 0.59 10*3/uL 0.03-0.39 H BASO x10^3 (test code = 704-7) 0.06 10*3/uL 0.01-0.07 Lab Interpretation (test code = 42456-1) Abnormal [facility] GLUCOSE (AUTOMATED)2023-03-21 20:45:47* Test Item Value Reference Range Interpretation Comme nts POCT GLU (test code = 8811966175) 349 mg/dL 70-110 H Lab Interpretation (test cod e = 85095-5) Abnormal [facility] GLUCOSE (AUTOMATED)2023-03-21 20:45:47* Test Item Value Reference Range Interpretation Comme nts POCT GLU (test code = 3596872621) 349 mg/dL 70-110 H Lab Interpretation (test cod e = 81949-2) Abnormal [facility] GLUCOSE (AUTOMATED)2023-03-21 20:45:47* Test Item Value Reference Range Interpretation Comme nts POCT GLU (test code = 5449419671) 349 mg/dL 70-110 H Lab Interpretation (test cod e = 45773-4) Abnormal [facility] GLUCOSE (AUTOMATED)2023-03-21 14:49:15* Test Item Value Reference Range Interpretation Comme nts POCT GLU (test code = 1667315037) 269 mg/dL 70-110 H Lab Interpretation (test cod e = 23934-5) Abnormal [facility] GLUCOSE (AUTOMATED)2023-03-21 14:49:15* Test Item Value Reference Range Interpretation Comme nts POCT GLU (test code = 3739168164) 269 mg/dL 70-110 H Lab Interpretation (test cod e = 36935-6) Abnormal [facility] GLUCOSE (AUTOMATED)2023-03-21 14:49:15* Test Item Value Reference Range Interpretation Comme nts POCT GLU (test code = 9056901721) 269 mg/dL 70-110 H Lab Interpretation (test cod e = 23472-8) Abnormal [facility] GLUCOSE (AUTOMATED)2023-02-21 22:11:38* Test Item Value Reference Range Interpretation Comme nts POCT GLU (test code = 8446995173) 197 mg/dL 70-110 H Lab Interpretation (test cod e = 57856-4) Abnormal [facility] GLUCOSE (AUTOMATED)2023-02-21 17:06:17* Test Item Value Reference Range Interpretation Comme nts POCT GLU (test code = 8673809032) 170 mg/dL 70-110 H Lab Interpretation (test cod e = 57241-2) Abnormal [facility] GLUCOSE (AUTOMATED)2023-02-21 13:20:45* Test Item Value Reference Range Interpretation Comme nts POCT GLU (test code = 7611826924) 108 mg/dL 70-110 Lab Interpretation (test cod e = 21269-8) Normal [facility] CenterL[facility] Whole [id number] 04:44:32* Test Item Value Reference Range Interpretation Comme nts LACTIC ACID (test code = 4281568695) 1.31 mmol/L 0.50-2.20 Lab Interpretation (test cod e = 21056-2) Normal [facility] CenterL[facility] Acid Whole [id number] 01:59:10* Test Item Value Reference Range Interpretation Comme nts LACTIC ACID (test code = 5583950667) 2.19 mmol/L 0.50-2.20 Lab Interpretation (test cod e = 36540-7) Normal [facility] URINALYSIS W SPECIFIC [id number] 15:30:00* Test Item Value Reference Range Interpretation [...] 3267) Lab Interpretation (test cod e = 96763-9) Abnormal [facility] URINALYSIS W SPECIFIC [id number] 15:30:00* Test Item Value Reference Range Interpretation [...] 3267) Lab Interpretation (test cod e = 33629-8) [facility]normal [facility] CenterFERRITIN [id number] 02:30:21* Test Item Value Reference Range Interpretation Comme nts FERRITIN (test code = 7489132179) 105.0 ng/mL 11.0-264.0 MAJOR (test code = MAJOR) Biotin has been reported to cause a negative bias, interpret results relative to patient's use of biotin. Lab Interpretation (test code = 65360-8) Normal [facility] CenterTHYROID STIMULATING [id number] 21:20:57 * Test Item Value Reference Range Interpretation Comme nts TSH (test code = 5082993413) 3.71 See_Comment [Automated [employer] ge] The system which generated this result transmitted reference range: 0.45 - 4.70 mIU/L. The reference range was not used to interpret this result as normal/abnormal. Lab Interpretation (test code = 41728-2) [facility] CenterFREE [id number] 21:07:16* Test Item Value Reference Range Interpretation Comme nts FREE T4 (test code = 9298006582) 1.18 See_Comment [Automated [employer] ge] The system which generated this result transmitted reference range: 0.78 - 2.20 ng/dL:. The reference range was not used to interpret this result as normal/abnormal. Lab Interpretation (test code = 12167-4) Normal [facility] CenterIRON [id number] 20:59:33* Test Item Value Reference Range Interpretation Comme nts IRON (test code = 8967038742) 50 ug/dL 50-160 TIBC (test code = 5520878667) 322 ug/dL 250-410 % FE SAT (test code = 0220312393) 16 % 20-50 L Lab Interpretation (test cod e = 48816-5) [facility]normal [facility] CenterMAGNESIUM2023-03-28 20:50:49* Test Item Value Reference Range Interpretation Comme nts MAGNESIUM (test code = 0596133173) 2.1 mg/dL 1.7-2.4 Lab Interpretation (test cod e = 32441-0) Normal [facility] CenterGLYCOSYLATED HEMOGLOBIN (A1C)2022-09-28 20:11:01* Test Item Value Reference Range Interpretation Comme nts HGB A1C (test code = 4548-4) 8.1 % 4.0-5.7 H MAJOR (test code = MAJOR) Reference RangesNormal: <5.7%Prediabetes: 5.7 - 6.4%Diabetes: > 6.5% Lab Interpretation (test code = 38600-5) Abnormal [facility] GLUCOSE (AUTOMATED)2022-07-05 22:35:15* Test Item Value Reference Range Interpretation Comme nts POCT GLU (test code = 3106714806) 228 mg/dL 70-110 H Lab Interpretation (test cod e = 00996-1) Abnormal [facility] GLUCOSE (AUTOMATED)2022-07-05 17:24:00* Test Item Value Reference Range Interpretation Comme nts POCT GLU (test code = 3593157331) 238 mg/dL 70-110 H Lab Interpretation (test cod e = 04761-4) Abnormal [facility] GLUCOSE (AUTOMATED)2022-07-05 15:19:38* Test Item Value Reference Range Interpretation Comme nts POCT GLU (test code = 0962804392) 171 mg/dL 70-110 H Lab Interpretation (test cod e = 21869-3) Abnormal [facility] GLUCOSE (AUTOMATED)2022-07-05 09:38:21* Test Item Value Reference Range Interpretation Comme nts POCT GLU (test code = 2088795871) 241 mg/dL 70-110 H Lab Interpretation (test cod e = 15773-6) Abnormal [facility] GLUCOSE (AUTOMATED)2022-07-05 07:30:23* Test Item Value Reference Range Interpretation Comme nts POCT GLU (test code = 4481621985) 179 mg/dL 70-110 H Lab Interpretation (test cod e = 91515-9) Abnormal [facility] GLUCOSE (AUTOMATED)2022-07-05 06:27:50* Test Item Value Reference Range Interpretation Comme nts POCT GLU (test code = 4509968502) 160 mg/dL 70-110 H Lab Interpretation (test cod e = 91098-1) Abnormal [facility] GLUCOSE (AUTOMATED)2022-07-04 22:34:25* Test Item Value Reference Range Interpretation Comme nts POCT GLU (test code = 3534483163) 198 mg/dL 70-110 H Lab Interpretation (test cod e = 39304-6) Abnormal [facility] GLUCOSE (AUTOMATED)2022-07-04 21:21:32* Test Item Value Reference Range Interpretation Comme nts POCT GLU (test code = 1402465924) 196 mg/dL 70-110 H Lab Interpretation (test cod e = 69806-7) Abnormal [facility] GLUCOSE (AUTOMATED)2022-07-04 17:38:52* Test Item Value Reference Range Interpretation Comme nts POCT GLU (test code = 0463561706) 202 mg/dL 70-110 H Lab Interpretation (test cod e = 51979-7) Abnormal [facility] GLUCOSE (AUTOMATED)2022-07-04 13:26:47* Test Item Value Reference Range Interpretation Comme nts POCT GLU (test code = 1447707956) 219 mg/dL 70-110 H Lab Interpretation (test cod e = 23046-1) Abnormal [facility] GLUCOSE (AUTOMATED)2022-07-04 06:42:08* Test Item Value Reference Range Interpretation Comme nts POCT GLU (test code = 2342484150) 184 mg/dL 70-110 H Lab Interpretation (test cod e = 14106-2) Abnormal [facility] GLUCOSE (AUTOMATED)2022-07-04 01:56:31* Test Item Value Reference Range Interpretation Comme nts POCT GLU (test code = 1049053315) 198 mg/dL 70-110 H Lab Interpretation (test cod e = 68959-9) Abnormal [facility] GLUCOSE (AUTOMATED)2022-07-03 22:17:31* Test Item Value Reference Range Interpretation Comme nts POCT GLU (test code = 2057963109) 200 mg/dL 70-110 H Lab Interpretation (test cod e = 75798-9) Abnormal [facility] METABOLIC PANEL (NA, K, CL, CO2, GLUCOSE, BUN, CREATININE, CA)2022-07-03 20:26:33* Test Item Value Reference Range Interpretation Comme nts NA (test code = 2437673748) 136 mmol/L 135-145 K (test code = 5949440417) 3.1 mmol/L 3.5-5.0 L CL (test code = 8938890978) 81 mmol/L 98-108 L CO2 TOTAL (test code = 9388398143) 47 mmol/L 23-31 H AGAP (test code = 3046114332) 2-16 BUN (test code = 5484140735) 33 mg/dL 7-23 H GLUCOSE (test code = 7757207925) 199 mg/dL 70-110 H CREATININE (test code = 1294627939) 1.54 mg/dL 0.50-1.04 H CALCIUM (test code = 4590244541) 7.8 mg/dL 8.6-10.6 L eGFR (test code = 9188678561) mL/min/1.73m2 MAJOR (test code = MAJOR) Association [...] imaging tests). Lab Interpretation (test code = 84930-2) [facility]normal [facility] CenterCINDY [id number] 20:21:17* Test Item Value Reference Range Interpretation Comments TROPONIN I (test code = 9088654462) 0.040 ng/mL See_Comment H [Automated message] The [...] of biotin. Lab Interpretation (test code = 27884-9) [facility]normal [facility] CenterN-TERMINAL [id number] 20:17:56* Test Item Value Reference Range Interpretation Comme [facility] NT-proBNP (test code = 9056219530) 3650 pg/mL See_Comment H [Automated message] The system which generated this result transmitted reference range: <=450. The reference range was not used to interpret this result as normal/abnormal. MAJOR (test code = MAJOR) Biotin has been reported to cause a negative bias, interpret results relative to patient's use of biotin. Lab Interpretation (test code = 89776-2) [facility] CenterMAGNESIUM2022-12-31 20:09:38* Test Item Value Reference Range Interpretation Comme nts MAGNESIUM (test code = 5649048389) 2.3 mg/dL 1.7-2.4 Lab Interpretation (test cod e = 06930-9) Normal [facility] GLUCOSE (AUTOMATED)2022-07-03 18:17:58* Test Item Value Reference Range Interpretation Comme [facility] POCT GLU (test code = 7429236972) 218 mg/dL 70-110 H Notified Provide r Lab Interpretation (test code = 65903-7) Abnormal [facility] GLUCOSE (AUTOMATED)2022-07-03 13:39:43* Test Item Value Reference Range Interpretation Comme nts POCT GLU (test code = 2916316884) 199 mg/dL 70-110 H Lab Interpretation (test cod e = 47571-5) Abnormal [facility] GLUCOSE (AUTOMATED)2022-07-03 10:55:23* Test Item Value Reference Range Interpretation Comme nts POCT GLU (test code = 8300008291) 211 mg/dL 70-110 H Lab Interpretation (test cod e = 72882-1) Abnormal [facility] GLUCOSE (AUTOMATED)2022-07-03 06:18:57* Test Item Value Reference Range Interpretation Comme nts POCT GLU (test code = 2582480870) 172 mg/dL 70-110 H Lab Interpretation (test cod e = 08468-1) Abnormal [facility] GLUCOSE (AUTOMATED)2022-07-03 02:25:25* Test Item Value Reference Range Interpretation Comme nts POCT GLU (test code = 8213169321) 251 mg/dL 70-110 H Lab Interpretation (test cod e = 83500-3) Abnormal [facility] GLUCOSE (AUTOMATED)2022-07-03 02:25:25* Test Item Value Reference Range Interpretation Comme nts POCT GLU (test code = 2457969616) 191 mg/dL 70-110 H Lab Interpretation (test cod e = 84206-4) Abnormal [facility] GLUCOSE (AUTOMATED)2022-07-02 22:03:54* Test Item Value Reference Range Interpretation Comme nts POCT GLU (test code = 7214396583) 232 mg/dL 70-110 H Lab Interpretation (test cod e = 38940-8) Abnormal [facility] GLUCOSE (AUTOMATED)2022-07-02 22:03:49* Test Item Value Reference Range Interpretation Comme nts POCT GLU (test code = 9227115622) 191 mg/dL 70-110 H Lab Interpretation (test cod e = 03626-0) [facility] 17:28:59* Test Item Value Reference Range Interpretation Comme nts MAGNESIUM (test code = 5850074005) 2.2 mg/dL 1.7-2.4 Lab Interpretation (test cod e = 99838-5) Normal [facility] GLUCOSE (AUTOMATED)2022-07-02 13:32:56* Test Item Value Reference Range Interpretation Comme nts POCT GLU (test code = 1491121292) 184 mg/dL 70-110 H Lab Interpretation (test cod e = 29953-5) [facility] (NA, K, CL, CO2, GLUCOSE, BUN, CREATININE, CA)2022-07-02 12:33:47* Test Item Value Reference Range Interpretation Comme nts NA (test code = 4240832449) 138 mmol/L 135-145 K (test code = 5208850413) 3.1 mmol/L 3.5-5.0 L CL (test code = 1489629495) 87 mmol/L 98-108 L CO2 TOTAL (test code = 2954909728) 45 mmol/L 23-31 H AGAP (test code = 0935043901) 2-16 BUN (test code = 0475965230) 26 mg/dL 7-23 H GLUCOSE (test code = 2064230578) 182 mg/dL 70-110 H CREATININE (test code = 6166629913) 1.33 mg/dL 0.50-1.04 H CALCIUM (test code = 8752278972) 7.7 mg/dL 8.6-10.6 L eGFR (test code = 3854651761) mL/min/1.73m2 MAJOR (test code = MAJOR) Association [...] imaging tests). Lab Interpretation (test code = 99804-1) [facility] CenterTROP[facility] [id number] 12:04:10* Test Item Value Reference Range Interpretation Comments TROPONIN I (test code = 8549113508) 0.060 ng/mL See_Comment H [Automated message] The [...] of biotin. Lab Interpretation (test code = 85653-8) [facility] [id number] 12:01:08* Test Item Value Reference Range Interpretation Comme nts NT-proBNP (test code = 3728811099) 5730 pg/mL See_Comment H [Automated message] The system which generated this result transmitted reference range: <=450. The reference range was not used to interpret this result as normal/abnormal. MAJOR (test code = MAJOR) Biotin has been reported to cause a negative bias, interpret results relative to patient's use of biotin. Lab Interpretation (test code = 90618-2) [facility]TOTAL CHOLESTEROL, TRIGLYCERIDES, HDL)2022-07-02 11:55:30* Test Item Value Reference Range Interpretation Comme nts CHOL (test code = 7803403967) 113 mg/dL 120-200 L HDL (test code = 2702810035) 17 mg/dL See_Comment L [Automated messa ge] The system which generated this result transmitted reference range: >=50. The reference range was not used to interpret this result as normal/abnormal. HDLC RATIO (test code = 6040101671) See_Comment H [Automated messa ge] The system which generated this result transmitted reference range: <=4.5. The reference range was not used to interpret this result as normal/abnormal. TRIG (test code = 2312064041) 175 mg/dL 30-170 H LDL CHOL (test code = 05382-2) 61 mg/dL See_Comment [Automated messa ge] The system which generated this result transmitted reference range: <=160. The reference range was not used to interpret this result as normal/abnormal. VLDL (test code = 1789257109) 35 mg/dL 5-60 Lab Interpretation (test code = 25767-8) Abnormal [facility] WITH [id number] 11:27:24* Test Item Value Reference Range Interpretation [...] g/dL 31.6-35.1 L RDW-SD (test code = 30936-6) 51.4 fL 39.0-49.9 H RDW-CV (test code = 788-0) 17.1 % 12.0-15.5 H PLT (test code = 777-3) See_Comment [Automated messa ge] The system which generated this result transmitted reference range: 166 - 358 10*3/?L. The reference range was not used to interpret this result as normal/abnormal. MPV (test code = 14845-0) 9.5 fL 9.5-12.9 NRBC/100 WBC (test code = 2355855810) See_Comment [Automated [employer] ssage] The system which generated this result transmitted reference range: 0.0 - 10.0 /100 WBCs. The reference range was not used to interpret this result as normal/abnormal. NRBC x10^3 (test code = 8128468496) See_Comment [Automated messa ge] The system which generated this result transmitted reference range: 10*3/?L. The reference range was not used to interpret this result as normal/abnormal. GRAN MAT (NEUT) % (test code = 770-8) 67.5 % IMM GRAN % (test code = 8022319177) 0.70 % LYMPH % (test code = 736-9) 10.7 % MONO % (test code = 5905-5) 14.1 % EOS % (test code = 713-8) 6.5 % BASO % (test code = 706-2) 0.5 % GRAN MAT x10^3(ANC) (test code = 8326010103) 3.98 10*3/uL 1.88-7.09 IMM GRAN x10^3 (test code = 7926114016) 0.04 10*3/uL 0.00-0.06 LYMPH x10^3 (test code = 731-0) 0.63 10*3/uL 1.32-3.29 L MONO x10^3 (test code = 742-7) 0.83 10*3/uL 0.33-0.92 EOS x10^3 (test code = 711-2) 0.38 10*3/uL 0.03-0.39 BASO x10^3 (test code = 704-7) 0.03 10*3/uL 0.01-0.07 Lab Interpretation (test code = 25806-9) Abnormal [facility] GLUCOSE (AUTOMATED)2022-07-02 05:18:28* Test Item Value Reference Range Interpretation Comme nts POCT GLU (test code = 1431422002) 186 mg/dL 70-110 H Lab Interpretation (test cod e = 18959-5) Abnormal [facility] GLUCOSE (AUTOMATED)2022-07-02 02:16:12* Test Item Value Reference Range Interpretation Comme nts POCT GLU (test code = 8385962329) 167 mg/dL 70-110 H Lab Interpretation (test cod e = 39513-9) Abnormal [facility] GLUCOSE (AUTOMATED)2022-07-01 22:29:43* Test Item Value Reference Range Interpretation Comme nts POCT GLU (test code = 8164253296) 166 mg/dL 70-110 H Notified Provide r Lab Interpretation (test code = 65746-6) Abnormal [facility] GLUCOSE (AUTOMATED)2022-07-01 22:29:37* Test Item Value Reference Range Interpretation Comme nts POCT GLU (test code = 2301471732) 219 mg/dL 70-110 H Notified Provide r Lab Interpretation (test code = 45771-2) Abnormal [facility] GLUCOSE (AUTOMATED)2022-07-01 22:29:32* Test Item Value Reference Range Interpretation Comme nts POCT GLU (test code = 3219699143) 219 mg/dL 70-110 H Notified Provide r Lab Interpretation (test code = 44210-7) [facility] [id number] 20:01:37* Test Item Value Reference Range Interpretation Comme nts Blood Culture-Aerobic (test code = 21902-9) No organisms isolated No growth Previous preliminary verified result was Culture In Progress on 06/26/2022 at 1701 CSTPrevious preliminary verified result was No growth at 24 hours on 06/27/2022 at 1401 CSTPrevious preliminary verified result was No growth at 48 hours on 06/28/2022 at 1401 CSTPrevious preliminary verified result was No growth at 72 hours on 06/29/2022 at 1401 AUCTION BLOCK CLERK Blood Culture-Anaerobic (test code = 03360-1) No organisms isolated No growth Previous preliminary verified result was Culture In Progress on 06/26/2022 at 1701 CSTPrevious preliminary verified result was No growth at 24 hours on 06/27/2022 at 1401 CSTPrevious preliminary verified result was No growth at 48 hours on 06/28/2022 at 1401 CSTPrevious preliminary verified result was No growth at 72 hours on 06/29/2022 at 1401 AUCTION BLOCK CLERK Lab Interpretation (test code = 09494-1) Normal [facility] CULTURE [id number] 20:01:37* Test Item Value Reference Range Interpretation Comme nts Blood Culture-Aerobic (test code = 39462-2) No organisms isolated No growth Previous preliminary verified result was Culture In Progress on 06/26/2022 at 1701 CSTPrevious preliminary verified result was No growth at 24 hours on 06/27/2022 at 1401 CSTPrevious preliminary verified result was No growth at 48 hours on 06/28/2022 at 1401 CSTPrevious preliminary verified result was No growth at 72 hours on 06/29/2022 at 1401 AUCTION BLOCK CLERK Blood Culture-Anaerobic (test code = 68901-3) No organisms isolated No growth Previous preliminary verified result was Culture In Progress on 06/26/2022 at 1701 CSTPrevious preliminary verified result was No growth at 24 hours on 06/27/2022 at 1401 CSTPrevious preliminary verified result was No growth at 48 hours on 06/28/2022 at 1401 CSTPrevious preliminary verified result was No growth at 72 hours on 06/29/2022 at 1401 AUCTION BLOCK CLERK Lab Interpretation (test code = 99613-7) Normal [facility] GLUCOSE (AUTOMATED)2022-07-01 09:39:13* Test Item Value Reference Range Interpretation Comme nts POCT GLU (test code = 2243774436) 198 mg/dL 70-110 H Lab Interpretation (test cod e = 83716-5) Abnormal [facility] GLUCOSE (AUTOMATED)2022-07-01 05:30:18* Test Item Value Reference Range Interpretation Comme nts POCT GLU (test code = 9984666512) 221 mg/dL 70-110 H Lab Interpretation (test cod e = 73692-0) Abnormal [facility] GLUCOSE (AUTOMATED)2022-07-01 02:07:09* Test Item Value Reference Range Interpretation Comme nts POCT GLU (test code = 5243618714) 220 mg/dL 70-110 H Lab Interpretation (test cod e = 49006-4) Abnormal [facility] GLUCOSE (AUTOMATED)2022-06-30 22:49:27* Test Item Value Reference Range Interpretation Comme nts POCT GLU (test code = 2362918748) 197 mg/dL 70-110 H Lab Interpretation (test cod e = 31202-6) Abnormal [facility] GLUCOSE (AUTOMATED)2022-06-30 18:01:17* Test Item Value Reference Range Interpretation Comme nts POCT GLU (test code = 9290909953) 198 mg/dL 70-110 H Lab Interpretation (test cod e = 44338-2) Abnormal [facility] GLUCOSE (AUTOMATED)2022-06-30 14:41:50* Test Item Value Reference Range Interpretation Comme nts POCT GLU (test code = 3849658302) 249 mg/dL 70-110 H Lab Interpretation (test cod e = 25890-9) Abnormal [facility] METABOLIC PANEL (NA, K, CL, CO2, GLUCOSE, BUN, CREATININE, CA)2022-06-30 12:42:06* Test Item Value Reference Range Interpretation Comme nts NA (test code = 6811126095) 140 mmol/L 135-145 K (test code = 3893684012) 3.6 mmol/L 3.5-5.0 CL (test code = 3864861180) 100 mmol/L 98-108 CO2 TOTAL (test code = 3288563713) 33 mmol/L 23-31 H AGAP (test code = 3852488273) 2-16 BUN (test code = 2773260379) 18 mg/dL 7-23 GLUCOSE (test code = 5978181300) 185 mg/dL 70-110 H CREATININE (test code = 3122755660) 1.35 mg/dL 0.50-1.04 H CALCIUM (test code = 9293672481) 8.5 mg/dL 8.6-10.6 L eGFR (test code = 0605175760) mL/min/1.73m2 MAJOR (test code = MAJOR) Association [...] imaging tests). Lab Interpretation (test code = 00375-0) [facility] 12:42:06* Test Item Value Reference Range Interpretation Comme nts MAGNESIUM (test code = 2321040035) 2.3 mg/dL 1.7-2.4 Lab Interpretation (test cod e = 45820-6) [facility]2022-[facility] 12:42:06* Test Item Value Reference Range Interpretation Comme nts PHOSPHORUS (test code = 0054632493) 2.8 mg/dL 2.5-5.0 Lab Interpretation (test cod e = 59126-2) Normal [facility]AL [id number] 12:42:06* Test Item Value Reference Range Interpretation Comme nts NT-proBNP (test code = 7211806851) 9660 pg/mL See_Comment H [Automated message] The system which generated this result transmitted reference range: <=450. The reference range was not used to interpret this result as normal/abnormal. MAJOR (test code = MAJOR) Biotin has been reported to cause a negative bias, interpret results relative to patient's use of biotin. Lab Interpretation (test code = 01648-0) Abnormal [facility] WITH [id number] 11:09:01* Test Item Value Reference Range Interpretation Comme nts WBC (test code = 6690-2) See_Comment H [Automated [employer] ge] The system which generated this result transmitted reference range: 4.30 - 11.10 10*3/?L. The reference range was not used to interpret this result as normal/abnormal. RBC (test code = 789-8) See_Comment [Automated [employer] ge] The system which generated this result [...] g/dL 31.6-35.1 L RDW-SD (test code = 89734-8) 50.2 fL 39.0-49.9 H RDW-CV (test code = 788-0) 17.1 % 12.0-15.5 H PLT (test code = 777-3) See_Comment [Automated [employer] ge] The system which generated this result transmitted reference range: 166 - 358 10*3/?L. The reference range was not used to interpret this result as normal/abnormal. MPV (test code = 05799-5) 10.1 fL 9.5-12.9 NRBC/100 WBC (test code = 7542284486) See_Comment [Automated [employer] ssage] The system which generated this result transmitted reference range: 0.0 - 10.0 /100 WBCs. The reference range was not used to interpret this result as normal/abnormal. NRBC x10^3 (test code = 6664802083) See_Comment [Automated messa ge] The system which generated this result transmitted reference range: 10*3/?L. The reference range was not used to interpret this result as normal/abnormal. GRAN MAT (NEUT) % (test code = 770-8) 83.2 % IMM GRAN % (test code = 1635693379) 0.80 % LYMPH % (test code = 736-9) 7.0 % MONO % (test code = 5905-5) 7.2 % EOS % (test code = 713-8) 1.5 % BASO % (test code = 706-2) 0.3 % GRAN MAT x10^3(ANC) (test code = 9121016925) 9.74 10*3/uL 1.88-7.09 H IMM GRAN x10^3 (test code = 3387775904) 0.09 10*3/uL 0.00-0.06 H LYMPH x10^3 (test code = 731-0) 0.82 10*3/uL 1.32-3.29 L MONO x10^3 (test code = 742-7) 0.84 10*3/uL 0.33-0.92 EOS x10^3 (test code = 711-2) 0.18 10*3/uL 0.03-0.39 BASO x10^3 (test code = 704-7) 0.04 10*3/uL 0.01-0.07 Lab Interpretation (test code = 53748-9) Abnormal [facility] GLUCOSE (AUTOMATED)2022-06-30 10:54:19* Test Item Value Reference Range Interpretation Comme nts POCT GLU (test code = 4657659250) 174 mg/dL 70-110 H Lab Interpretation (test cod e = 88043-4) Abnormal [facility] GLUCOSE (AUTOMATED)2022-06-30 02:23:20* Test Item Value Reference Range Interpretation Comme nts POCT GLU (test code = 8393726738) 187 mg/dL 70-110 H Lab Interpretation (test cod e = 40767-9) Abnormal [facility] GLUCOSE (AUTOMATED)2022-06-30 01:12:17* Test Item Value Reference Range Interpretation Comme nts POCT GLU (test code = 0164879805) 206 mg/dL 70-110 H Lab Interpretation (test cod e = 69215-8) [facility]an[facility] ([facility]2022-06-29 22:52:13* Test Item Value Reference Range Interpretation Comme nts Height (test code = 9895515868) in Weight (test code = 4627868565) lbs Systolic BP (test code = 3826437734) mmHg Diastolic BP (test code = 3931270085) mmHg Heart Rate (test code = 9820997506) bpm BSA (test code = 5514734413) 2.25 m2 LVIDD (test code = 5301781558) 5.90 cm Left Ventricular End Diastolic Volume by Teichholz Method (test code = 5571293) 171.4 mL IVS (test code = 9455551953) 1.10 cm Interventricular Septum Diastolic Thickness by 2D (test code = 8599942) 1.10 cm LVPWD (test code = 4909594647) 0.97 cm PW (test code = 3045444067) 0.97 cm 0.6-1.1 EF(Teich) (test code = 3116394782) 46.70 % LVIDS (test code = 4454092944) 4.50 cm Left Ventricular End Systolic Volume by Teichholz Method (test code = 2490763) 91.3 mL FS (test code = 8139538030) 24 % EF - 2D (test code = 78694059) 46.70 % LVOT diameter (test code = 4454025286) 2.05 cm LVOT area (test code = 2413317343) 3.30 cm2 ACS (test code = 0319414473) 1.83 cm Ao root diam (test code = 7460977829) 3.30 cm Aortic root (test code = 2522650967) 3.3 cm Ao root annulus (test code = 7822379470) 3.3 cm LA size (test code = 1235506377) 3.7 cm E wave decelartion time (test code = 2169823968) 0.18 s MV Peak E Johnny (test code = 0397174551) 114.6 cm/s MV Peak A Johnny (test code = 3215888439) 106.0 cm/s E/A ratio (test code = 7956914409) ratio MV Prop V (test code = 2540333362) 36.10 cm/s Tapse (test code = 6851671183) 2.31 cm TR Peak Johnny (test code = 6388879887) 293.8 cm/s Triscuspid Valve Regurgitation Peak Gradient (test code = 1845788816) mmHg LVOT stroke volume (test code = 6438246318) 107.50 cm3 LVOT peak johnny (test code = 6093665046) 143.9 cm/s LVOT mn grad (test code = 6999288344) mmHg AV LVOT peak gradient (test code = 8925561560) mmHg LVOT peak VTI (test code = 5422693553) 32.7 cm LV V1 mean (test code = 1661012617) 96.10 cm/s Aortic valve mean velocity (test code = 9584631782) 125.9 cm/s Ao peak johnny (test code = 0905622253) 208.3 cm/s Ao VTI (test code = 9652846638) 42.4 cm AV area by cont VTI (test code = 2021893702) 2.5 cm2 AV area peak johnny (test code = 5189340717) 2.3 cm2 Ao max PG (test code = 3144403795) 17.40 mm[Hg] AV peak gradient (test code = 2143310301) mmHg AV valve area (test code = 9436012938) 2.50 cm2 AV mean gradient (test code = 7518732259) mmHg Radiology Study observation (narrative) (test code = 59043-0) MAJOR (test code = MAJOR) Table formatting [...] was not well visualized. Misha Mccormick MD VitalsHeit Weight BSA (Calculated - sq m) BP [...] apical, parasternal and subcostal views were obtained. [facility] GLUCOSE (AUTOMATED)2022-06-29 17:20:48* Test Item Value Reference Range Interpretation Comme nts POCT GLU (test code = 2456002171) 206 mg/dL 70-110 H Lab Interpretation (test cod e = 98293-4) Abnormal [facility] GLUCOSE (AUTOMATED)2022-06-29 13:50:59* Test Item Value Reference Range Interpretation Comme nts POCT GLU (test code = 0646463195) 200 mg/dL 70-110 H Lab Interpretation (test cod e = 49588-6) Abnormal [facility] GLUCOSE (AUTOMATED)2022-06-29 07:09:24* Test Item Value Reference Range Interpretation Comme nts POCT GLU (test code = 4452864180) 196 mg/dL 70-110 H Lab Interpretation (test cod e = 39612-3) Abnormal [facility] GLUCOSE (AUTOMATED)2022-06-29 02:38:41* Test Item Value Reference Range Interpretation Comme nts POCT GLU (test code = 8076736064) 231 mg/dL 70-110 H Lab Interpretation (test cod e = 52089-5) Abnormal [facility] GLUCOSE (AUTOMATED)2022-06-28 22:33:13* Test Item Value Reference Range Interpretation Comme nts POCT GLU (test code = 5633366154) 179 mg/dL 70-110 H Lab Interpretation (test cod e = 32077-3) Abnormal [facility] GLUCOSE (AUTOMATED)2022-06-28 17:29:15* Test Item Value Reference Range Interpretation Comme nts POCT GLU (test code = 5618640494) 166 mg/dL 70-110 H Lab Interpretation (test cod e = 03603-5) Abnormal [facility] GLUCOSE (AUTOMATED)2022-06-28 13:43:31* Test Item Value Reference Range Interpretation Comme nts POCT GLU (test code = 4121907532) 178 mg/dL 70-110 H Lab Interpretation (test cod e = 05917-6) Abnormal [facility] GLUCOSE (AUTOMATED)2022-06-28 10:25:09* Test Item Value Reference Range Interpretation Comme nts POCT GLU (test code = 8046614588) 179 mg/dL 70-110 H Lab Interpretation (test cod e = 78035-2) Abnormal [facility] GLUCOSE (AUTOMATED)2022-06-28 05:58:08* Test Item Value Reference Range Interpretation Comme nts POCT GLU (test code = 3002638222) 211 mg/dL 70-110 H Lab Interpretation (test cod e = 99979-1) Abnormal [facility] GLUCOSE (AUTOMATED)2022-06-28 02:15:08* Test Item Value Reference Range Interpretation Comme nts POCT GLU (test code = 6719748618) 214 mg/dL 70-110 H Lab Interpretation (test cod e = 79791-6) Abnormal [facility] GLUCOSE (AUTOMATED)2022-06-27 22:33:11* Test Item Value Reference Range Interpretation Comme nts POCT GLU (test code = 7802857206) 213 mg/dL 70-110 H Lab Interpretation (test cod e = 14778-6) Abnormal [facility] GLUCOSE (AUTOMATED)2022-06-27 17:52:15* Test Item Value Reference Range Interpretation Comme nts POCT GLU (test code = 1765780465) 189 mg/dL 70-110 H Lab Interpretation (test cod e = 23956-1) Abnormal [facility] GLUCOSE (AUTOMATED)2022-06-27 14:05:18* Test Item Value Reference Range Interpretation Comme nts POCT GLU (test code = 7117671035) 116 mg/dL 70-110 H Lab Interpretation (test cod e = 40314-6) Abnormal [facility] GLUCOSE (AUTOMATED)2022-06-27 11:01:48* Test Item Value Reference Range Interpretation Comme nts POCT GLU (test code = 9525450186) 108 mg/dL 70-110 Lab Interpretation (test cod e = 56498-7) Normal [facility] GLUCOSE (AUTOMATED)2022-06-27 06:00:42* Test Item Value Reference Range Interpretation Comme nts POCT GLU (test code = 6408435734) 97 mg/dL 70-110 Lab Interpretation (test cod e = 39709-5) Normal [facility] GLUCOSE (AUTOMATED)2022-06-27 02:31:07* Test Item Value Reference Range Interpretation Comme nts POCT GLU (test code = 7274403271) 88 mg/dL 70-110 Lab Interpretation (test cod e = 60089-5) [facility] [id number] 18:50:59* Test Item Value Reference Range Interpretation Comments TROPONIN I (test code = 8545726340) 0.039 ng/mL See_Comment H [Automated message] The [...] of biotin. Lab Interpretation (test code = 88094-7) [facility]normal [facility] [id number] 18:47:58* Test Item Value Reference Range Interpretation Comme nts NT-proBNP (test code = 0673955102) 3840 pg/mL See_Comment H [Automated message] The system which generated this result transmitted reference range: <=450. The reference range was not used to interpret this result as normal/abnormal. MAJOR (test code = MAJOR) Biotin has been reported to cause a negative bias, interpret results relative to patient's use of biotin. Lab Interpretation (test code = 32484-8) [facility] 18:39:19* Test Item Value Reference Range Interpretation Comme nts MAGNESIUM (test code = 7016635047) 1.9 mg/dL 1.7-2.4 Lab Interpretation (test cod e = 24420-9) Normal [facility]. METABOLIC PANEL (10454)2022-06-26 18:38:59* Test Item Value Reference Range Interpretation Comme nts NA (test code = 0384867769) 134 mmol/L 135-145 L K (test code = 3407384083) 4.0 mmol/L 3.5-5.0 CL (test code = 0558199947) 101 mmol/L 98-108 CO2 TOTAL (test code = 1920068034) 25 mmol/L 23-31 AGAP (test code = 1956877622) 2-16 BUN (test code = 5579267114) 23 mg/dL 7-23 GLUCOSE (test code = 8196682725) 80 mg/dL 70-110 CREATININE (test code = 9818775377) 1.44 mg/dL 0.50-1.04 H TOTAL BILI (test code = 2081379695) 1.1 mg/dL 0.1-1.1 CALCIUM (test code = 6747155689) 8.4 mg/dL 8.6-10.6 L T PROTEIN (test code = 6840790089) 6.4 g/dL 6.3-8.2 ALBUMIN (test code = 6302592321) 3.5 g/dL 3.5-5.0 ALK PHOS (test code = 4998816838) 28 U/L 34-122 L ALTv (test code = 1742-6) 20 U/L 5-35 AST(SGOT) (test code = 7973107327) 42 U/L 13-40 H eGFR (test code = 4026864914) mL/min/1.73m2 MAJOR (test code = MAJOR) Association [...] imaging tests). Lab Interpretation (test code = 87143-9) [facility] 18:38:39* Test Item Value Reference Range Interpretation Comme [facility] LIPASE (test code = 4298783640) 224 U/L 0-220 H Lab Interpretation (test cod e = 53620-7) Abnormal [facility] CenterACTIVATED PARTIAL THRMPLAS [id number] 18:31:19* Test Item Value Reference Range Interpretation Comme [facility] APTT Patient (test code = 3173-2) See_Comment [Automated message] The system which generated this result transmitted reference range: 23 - 38 Seconds. The reference range was not used to interpret this result as normal/abnormal. MAJOR (test code = MAJOR) The [facility] patient population mean normal value for aPTT is 30 seconds. Lab Interpretation (test code = 08733-1) Normal [facility] CenterPROTHROMBIN TIME / [id number] 18:29:17* Test Item Value Reference Range Interpretation Comme nts PROTIME PATIENT (test code = 5964-2) See_Comment H [Automated messa ge] The system which generated this result transmitted reference range: 12.0 - 14.7 Seconds. The reference range was not used to interpret this result as normal/abnormal. INR (test code = 6301-6) Normal INR <1.1; Warfarin Therapeutic range 2.0 to 3.0 or 2.5 to 3.5, depending upon the indications. Lab Interpretation (test code = 93373-3) [facility] CenterCBC WITH [id number] 18:21:57* Test Item Value Reference Range Interpretation [...] 32.3 g/dL 31.6-35.1 RDW-SD (test code = 87106-5) 47.9 fL 39.0-49.9 RDW-CV (test code = 788-0) 17.0 % 12.0-15.5 H PLT (test code = 777-3) See_Comment [Automated messa ge] The system which generated this result transmitted reference range: 166 - 358 10*3/?L. The reference range was not used to interpret this result as normal/abnormal. MPV (test code = 24236-4) 9.8 fL 9.5-12.9 NRBC/100 WBC (test code = 7012062065) See_Comment [Automated me ssage] The system which generated this result transmitted reference range: 0.0 - 10.0 /100 WBCs. The reference range was not used to interpret this result as normal/abnormal. NRBC x10^3 (test code = 9842125844) See_Comment [Automated messa ge] The system which generated this result transmitted reference range: 10*3/?L. The reference range was not used to interpret this result as normal/abnormal. GRAN MAT (NEUT) % (test code = 770-8) 79.8 % IMM GRAN % (test code = 4721569621) 0.40 % LYMPH % (test code = 736-9) 10.3 % MONO % (test code = 5905-5) 8.9 % EOS % (test code = 713-8) 0.2 % BASO % (test code = 706-2) 0.4 % GRAN MAT x10^3(ANC) (test code = 6585642703) 4.11 10*3/uL 1.88-7.09 IMM GRAN x10^3 (test code = 3157955777) 0.00-0.06 LYMPH x10^3 (test code = 731-0) 0.53 10*3/uL 1.32-3.29 L MONO x10^3 (test code = 742-7) 0.46 10*3/uL 0.33-0.92 EOS x10^3 (test code = 711-2) 0.03-0.39 L BASO x10^3 (test code = 704-7) 0.01-0.07 Lab Interpretation (test code = 94243-3) [facility] Ag [Presence] in Respiratory specimen by Rapid [id number] 10:45:00* Test Item Value Reference Range Interpretation Comme nts SARS CoV 2 (test code = SARS CoV 2) negative [facility] Consult Notes Date/Time Note Provider Source 2023-02-21 12:00:00 Associated Order(s): CONSULT PS PASTORAL CARE [employer] Cover[employer] Machine Operator visited with PT while rounding. PT received in bed awake. PT was alone. She has no family near. She has someone who is like a son to her who checks on her. PT is a . PT shared her family and health history. PT identifies a Confucianist within the non-jew community. Box Covering Machine Operator was a spiritual presence and recreation coordinator offering active compassionate listening, creating a scared space where the PT could share her thoughts, emotions, and concerns. Box Covering Machine Operator was an emotional presence as PT shed tears remembering her late . Box Covering Machine Operator offered words of encouragement and prayed for PT. Additional Box Covering Machine Operator support is available upon request. Chaplain Candice Michael [facility] Pastoral Care Department [phone] Candice Michael [facility] 2023-02-21 07:58:29 Associated Order(s): CONSULT CARDIOLOGY [facility] Cardiology Consult PCP: Brian Israel Date of [...] disease etc. the patient was brought to [facility] emergency room due to possible syncope, loss [...] (deep venous thrombosis) Hyperlipidemia Hypertension Follows with icu clerk Dr. Fuentes Hypothyroidism Lymphedema Muscle tear 2016 of right knee PAD (peripheral artery disease) Paroxysmal atrial fibrillation Type 2 diabetes mellitus Follows with automotive glass specialist Dr. Andersen Past Surgical History: Procedure Laterality [...] Sulfa (Sulfonamide Antibiotics) Nausea and/or Vomiting Per gericare aide, at rehab, tolerated fine with bendryl MEDICATIONS [...] mcg (0.1 %) nasal spray Use 1 [place] in each nostril in the morning and 1 [place] in the evening. Use in each nostril [...] 100 Packet 1 Lancets (ACCU-CHEK MULTICLIX LANCET) [facility] Use as directed 3 Each 7 Insulin [place], Disposable, (BD INSULIN PEN NEEDLE UF) 29 [...] (!) 165/58 Pulse: 75 74 71 Resp: 18 20 18 Temp: 36.2 ?C (97.1 ?F) 36.8 ?C [...] be of further assistance. Sushil Persaud MD, FAC, HARJINDER Cycle Director, Division of Cardiology [facility] T [facility] - Health History and Physical Notes Date/Time [...] (deep venous thrombosis) Hyperlipidemia Hypertension Follows with icu clerk Dr. Fuentes Hypothyroidism Lymphedema Muscle tear 2016 of right knee PAD (peripheral artery disease) Paroxysmal atrial fibrillation Type 2 diabetes mellitus Follows with automotive glass specialist Dr. Andersen Past Surgical History: Procedure Laterality [...] mcg (0.1 %) nasal spray Use 1 [place] in each nostril in the morning and 1 [place] in the evening. Use in each nostril [...] (CURAD NON-STICK PAD) 3 X 4 " [facility] Use as directed 1 Each 3 pantoprazole [...] Use as directed 3 Each 7 Insulin [place], Disposable, (BD INSULIN PEN NEEDLE UF) 29 [...] Sulfa (Sulfonamide Antibiotics) Nausea and/or Vomiting Per gericare aide, at rehab, tolerated fine with bendryl Make [...] toes especially on the right side. Modified Paxton Score 4 - Moderately severe disability; unable [...] schedule all of this at [facility] HOLD APIXIBAN 2 DAY PRIOR TO PROCEDURE [facility] 2023-02-20 23:33:58 Formatting of this n ote is different from the original. [facility] Hospitalist Admission H&P Date of Service: 02/20/2023 [...] (deep venous thrombosis) Hyperlipidemia Hypertension Follows with icu clerk Dr. Fuentes Hypothyroidism Lymphedema Muscle tear 2016 of right knee PAD (peripheral artery disease) Paroxysmal atrial fibrillation Type 2 diabetes mellitus Follows with automotive glass specialist Dr. Andersen PAST SURGICAL HISTORY Past Surgical [...] Sulfa (Sulfonamide Antibiotics) Nausea and/or Vomiting Per gericare aide, at rehab, tolerated fine with bendryl MEDICATIONS [...] MCG (0.1 %) NASAL SPRAY Use 1 [place] in each nostril in the morning and 1 [place] in the evening. Use in each nostril [...] a day, DX:E11.9 LANCETS (ACCU-CHEK MULTICLIX LANCET) [facility] [place] as directed LATANOPROST (XALATAN) 0.005 % [...] high risk of morbidity and mortality. [place] BANK SALES AND SERVICE MANAGER was verified during stay Sam Meredith MD [facility] 2023-02-20 23:30:00 Formatting of this n ote is different from the original. [facility] Hospitalist Admission H&P Date of Service: 02/21/2023 [...] to get around. [facility] and was told that she may have [...] she advised them to bring her to [facility]. She was initially a little [...] (deep venous thrombosis) Hyperlipidemia Hypertension Follows with icu clerk Dr. Fuentes Hypothyroidism Lymphedema Muscle tear 2016 of right knee PAD (peripheral artery disease) Paroxysmal atrial fibrillation Type 2 diabetes mellitus Follows with automotive glass specialist Dr. Andersen PAST SURGICAL HISTORY Past Surgical [...] Sulfa (Sulfonamide Antibiotics) Nausea and/or Vomiting Per gericare aide, at rehab, tolerated fine with bendryl MEDICATIONS [...] LANCET) Misc Comments: Reason for Stopping: Insulin [place], Disposable, (BD INSULIN PEN NEEDLE UF) 29 [...] Report Dictated by Resident: Fredrick Ness I, Cornelia Rodriguez MD., have reviewed this study and [...] probably work on a home health or fpc facility placement at the time of discharge. [...] user?: NO Patient will require Observation [place] B[employer] SALES AND SERVICE MANAGER was verified during stay Sam Meredith MD T [facility] Notes Date/Time Note Provider Source 2024-08-20 15:06:44 Notice received from [employer] for a non formulary medication. The patient was provided with a temporary supply of the following med: Tresiba Suggested alternatives: Insulin Degludec Please review and advise. [facility] 2024-08-16 11:50:55 Refer to telephone encounter dated 08/03/24. Patient notified that records are being requested and to contact Markos at [phone] for clarification of testing. All was verbalized understanding. [facility] 2024-08-16 11:31:13 Markos with [employer] is calling and is wanting to check the status of the fax request that was sent on 07-26-24. Markos states they are needing the pts chart notes for the last 6 months and states the pt has already had the required testing. Please advise. [facility] Giorgi Escalante [facility] 2024-08-15 14:50:34 Patient contacted and denied request for Comprehensive Neurological testing by [facility]. She requested copy of order be mailed to her and sent out on 08/15/2024 [facility] 2024-08-13 11:25:45 Images from the original note were not included. Psychiatry: Antidepressants Bwxtwg3108/10/2024 06:38 AM Manual Review: Verify no changes [...] authorizing provider and meeting all other requirements ION BLOCK CLERK Margarita Meyer RN [facility] 2024-08-03 14:57:09 Forms recd from [facility] requesting Neurology testing. LMTCB to confirm if patient requested testing. ION BLOCK CLERK [facility] 2024-07-30 09:16:12 Images from the original note were not included. Notes: 06/26/24 Last Refilled: [facility] [place], [place] - [address] AT [address] Recent Visits Date [...] Israel MD Last refill: 06/28/2024 Rx #: [id number] Provider Review Required Zvcrta9707/29/2024 06:52 AM Protocol Details This refill cannot be delegated Valid encounter within last 12 months To be filled at: [facility] [place] [place] [facility] [address] EET Galaviz MA [facility] 2024-07-10 10:02:01 Images from the original note [...] Israel MD Last refill: 06/08/2024 Rx #: [id number] Anti-Platelets Eqsrvw1507/08/2024 06:35 AM Protocol Details Valid encounter within last 12 months HGB in normal range and within 360 days HCT in normal range and within 360 days PLT in normal range and within 360 days RBC in normal range and within 360 days To be filled at: [facility] [address] AT [address] Recent Visits Date Type [...] authorizing provider and meeting all other requirements ION BLOCK CLERK [facility] 2024-06-28 12:30:34 Last Refilled: Disp Refills Start End CELSO TRESIBA FLEXTOUCH U-100 100 unit/mL (3 mL) InPn 15 mL 2 02/10/2024 -- No Sig: INJECT 32 UNITS UNDER THE SKIN ONCE EVERY MORNING. Sent to pharmacy as: Tresiba FlexTouch U-100 insulin 100 unit/mL (3 mL) subcutaneous pen (insulin degludec) Class: eRX Order: [id number] Date/Time Signed: 02/10/2024 13:05 E-Prescribing Status: Receipt confirmed by pharmacy (02/10/2024 1:05 PM CDT) Notes: Recent Visits Date Type Provider Dept 04/30/24 Office Visit Elsi Christian MD [facility] 04/03/24 Office Visit Elsi Christian MD [facility] 01/31/24 Office Visit Brian [...] Med 03/08/23 Office Visit Brian Israel MD [facility] 01/18/23 Office Visit Brian [...] meeting all other requirements EET Espinosa RN [facility] 2024-06-25 15:02:38 Recent Visits Date Type Provider [...] Med 03/08/23 Office Visit Brian Israel MD [facility] 01/18/23 Office Visit Brian [...] pharmacy as: baclofen 10 mg tablet (LIORESAL) ION BLOCK CLERK Dara Delgado MA [facility] 2024-06-19 14:22:46 Last Refilled: Disp Refills Start End CELSO METOPROLOL TARTRATE 25 mg tablet 90 tablet 1 12/09/2023 -- No Sig: TAKE ONE-HALF (1/2) TABLET(S) BY MOUTH TWICE A DAY (MORNING AND EVENING). Sent to pharmacy as: metoprolol tartrate 25 mg tablet (LOPRESSOR) Class: eRX Notes to Pharmacy: LAST PRESCRIBED BY: DR. Dutton/Marycarmen Amaya/Crystal. Order: [id number] Date/Time Signed: 12/09/2023 10:35 E-Prescribing Status: Receipt confirmed by pharmacy (12/09/2023 10:36 AM CDT) Notes: Recent Visits Date Type Provider Dept 04/30/24 Office Visit Elsi Christian MD [facility] 04/03/24 Office Visit Elsi Christian MD [facility] 01/31/24 Office Visit Jamshid Early MD [facility] Cardiology Faculty 01/31/24 Office Visit Brian Israel MD [facility] 12/27/23 Office Visit Brian Israel MD [facility] 11/11/23 Office Visit Brian Israel MD [facility] 09/21/23 Office Visit Jamshid Early MD [facility]iology Faculty 07/13/23 Office Visit David Lima MD [facility] Faculty 07/08/23 Office Visit Brian Israel [...] 01/16/2024 0.33 BASO x10 3 01/16/2024 0.05 American Board Certified Orthotist Visit on 11/11/2023 Component Date Value NA [...] eGFR 10/30/2023 51.6 LACTIC ACID 10/30/2023 1.21 American Board Certified Orthotist Visit on 09/21/2023 Component Date Value NA [...] 0.49 (H) BASO x10 3 09/21/2023 0.06 American Board Certified Orthotist Visit on 06/22/2023 Component Date Value WBC [...] NT-proBNP 06/22/2023 2,390 (H) MAGNESIUM 06/22/2023 2.0 ION BLOCK CLERK Martha Espinosa RN [facility] 2024-06-18 14:38:20 Images from the original note [...] Israel MD Last refill: 03/20/2024 Rx #: [id number] Cardiovascular: Antilipid - HMG-CoA Reductase Inhibitors Bpfcjp3106/17/2024 06:34 AM Protocol Details Total Cholesterol within 360 days LDL within 360 days HDL within 360 days Triglycerides within 360 days Valid encounter within last 12 months AST in normal range and within 360 days ALT in normal range and within 360 days To be filled at: [facility] [address] Recent Visits Date Type [...] authorizing provider and meeting all other requirements [facility] 2024-06-12 12:49:02 Error EET Jacobs [facility] 2024-06-05 17:01:27 Forms resent on 06/05/2024 [facility] 2024-06-05 13:14:28 Blaze with [employer] called requesting for forms to be faxed GI. ION BLOCK CLERK Berna Boss [facility] 2024-06-05 10:55:00 Blaze with [employer] calling in to check on status of Forms for pt's Freestyle Kandi Monitor. per Aden nothing was received just yet. They are still needing clinical notes sent over as soon as possible. Per Aden these forms are time sensitive and need to be sent by the end of today. Please resend forms to both FAX#---[phone] ALTERNATIVE FAX# --- [phone] [facility] Christiane Kelly [facility] 2024-06-05 09:27:44 OV attached and forms resent on 06/05/2024 [facility] 2024-06-04 11:45:50 [facility] request the last office visit to go with the form that was signed and faxed for the freestyle kandi monitor. This is time sensitive and is needed by the end of today. She asked that this be marked as urgent. FAX#---[phone] Please Advise. [facility] Gilda Euceda [facility] 2024-06-01 08:34:06 Images from the original note [...] RAZIA Garvin Last refill: 03/03/2024 Rx #: [id number] Endocrinology: Hypothyroid Agents Nknlcf4205/31/2024 06:51 AM Protocol Details Manual Review: ENT [...] RAZIA Garvin Last refill: 03/03/2024 Rx #: [id number] Gastroenterology: Antiulcer - Proton Pump Inhibitors Afgcwm1605/31/2024 06:51 AM Protocol Details Valid encounter within last 12 months To be filled at: [facility] - [place], [place] - [address] [place] [address] AT [address] Recent Visits Date Type [...] authorizing provider and meeting all other requirements [facility] Allison Vasquez MA [facility] 2024-05-28 09:00:31 Please review and sign if [...] of proximal vein of right lower extremity [facility] 2024-05-25 12:18:30 Received Prior Authorization from [place], have placed in provider's box for review. ION BLOCK CLERK Tara Rubio [facility] 2024-05-15 15:16:58 Received Neuro Lab report from [facility]. Placed in Providers box. EET Soto [facility] 2024-05-15 08:32:02 Duplicate encounter. Closing out. [facility] 2024-05-15 08:31:09 Please review. Refer to telephone encounter from 05/14/24 [facility] 2024-05-14 17:19:45 Ivett Bran is [...] took their rx a little before the pending sale to [facility] nurse arrived but today they've felt better than they have in a while and just wanted to update provider on condition. EET Dyson [facility] 2024-05-14 17:03:35 Attempted to call to inquire about patient's symptoms, no answer, left VM [facility] 2024-05-14 14:11:01 ATC patient to f/u for any s/s of HTN LMTCB Lou Tomlin LVN 05/14/2024 Please review RATNA 04/30/24 NOV 05/28/24 [facility] 2024-05-14 13:52:28 Apple bran [facility] is notifying the clinic that the patient's blood pressure was 175/77. Patient had taken blood pressure medication before blood pressure was taken. EET Frank [facility] 2024-05-11 14:47:18 Wound care orders faxed to [facility]. EET Meyer RN [facility] 2024-05-10 11:20:[address] [facility] [address] to let dr know pt has a wound that has reopened on her right ankle. They would like orders wound care put in for this pt ION BLOCK CLERK Lyndsay Parson [facility] 2024-05-09 16:13:07 Esther was under Oncology. Asking for refills. Will route to Dr. Early for approval. ION BLOCK CLERK Too Souza MA [facility] 2024-05-09 13:39:41 Last Refilled: Disp Refills Start End CELSO CLOPIDOGREL 75 mg tablet 30 tablet 0 03/21/2024 -- No Sig: TAKE ONE (1) TABLET(S) BY MOUTH ONCE A DAY IN THE MORNING. Sent to pharmacy as: clopidogreL 75 mg tablet (PLAVIX) Class: eRX Order: [id number] Date/Time Signed: 03/21/2024 08:23 E-Prescribing Status: Receipt [...] authorizing provider and meeting all other requirements ION BLOCK CLERK Olga Warner [facility] 2024-05-02 16:01:46 Ivett Bran is a 78 year old female Patient is calling to state that she will be unable to see a wound care doctor in [place] due to the distance from her home and her current condition making travel very difficult. Patient states that she has nurses that are providing wound care. Please advise. Lj Conde [facility] 2024-05-02 09:10:14 Spoke with [facility] nurse and clarified wound care instructions per Dr. Christian: Once daily,Cleanse with normal SN, Pat dry, apply santyl, cover with dry 4x4 gauze and secure with tape. T Martha Espinosa RN [facility] 2024-05-02 08:59:14 Referral sent to [facility] F:[phone] T Martha Espinosa RN [facility] 2024-05-02 08:42:19 Ivett Bran is a 78 year old female Nesha from (wound care) is calling needing clarifications on wound care order. Need to clarify Frequency of dressing change, if you want to use santyl cream and do they need to do wet to dry dressing. P: [phone] Please advise Jay Wen [facility] 2024-05-01 15:12:24 N[facility]ha with [facility] ([facility]) [phone] [facility] 2024-05-01 14:51:46 Ivett Bran is a 78 year old female and Nesha is the pts nurse calling about the wound care orders faxed yesterday 04/30/24. The orders have not been processed yet for the facility and [facility] is asking for verbal orders for today's home visit. Anna Guadarrama [facility] 2024-04-27 09:47:45 Name: Ivett Bran Date: 04/30/2024 Status: Phillip Arrival Time: 12:45 PM Length: 20 Visit Type: ESTABLISHED SICK VISIT [882] Copay: Provider: Elsi Christian MD Department: [facility] Spoke with the patient she is unable to come in today. She's scheduled to come in on Tuesday. Ochoa Mcguire [facility] 2024-04-27 07:37:32 Last Refilled: Disp Refills Start End CELSO furosemide 40 mg tablet 180 tablet 0 01/31/2024 -- No Sig: TAKE ONE (1) TABLET BY MOUTH EVERY MORNING AND EVENING. Sent to pharmacy as: furosemide 40 mg tablet (LASIX) Class: eRX Order: [id number] Date/Time Signed: 01/31/2024 09:33 E-Prescribing Status: Receipt [...] Med 05/05/23 Office Visit Brian Israel MD [facility] 03/08/23 Office Visit Brian Israel MD [facility] 01/18/23 Office Visit Brian Israel MD [facility] 12/09/22 Office Visit Brian [...] 01/16/2024 0.33 BASO x10 3 01/16/2024 0.05 American Board Certified Orthotist Visit on 11/11/2023 Component Date Value NA [...] eGFR 10/30/2023 51.6 LACTIC ACID 10/30/2023 1.21 American Board Certified Orthotist Visit on 09/21/2023 Component Date Value NA [...] 0.49 (H) BASO x10 3 09/21/2023 0.06 American Board Certified Orthotist Visit on 06/22/2023 Component Date Value WBC [...] HBA1C 05/23/2023 8.7 (A) Martha Espinosa RN [facility] 2024-04-27 06:19:00 Please call Mrs. Bran to [...] way. Ms. Bran said the PT from [facility] saw it this morning and sent a [...] clinic? Thanks so much for your assistance" T [facility] 2024-04-26 16:01:35 Please review and advise. RATNA 04/03/24 NOV 07/16/24 T [facility] 2024-04-26 15:18:41 CHRISSY Melgar Nurse Repair Mechanic with [facility] is wanting to notify Dr Israel that [...] CHRISSY Melgar is not currently with pt. T Norma Berrios [facility] 2024-04-26 08:22:53 Medication refilled per policy: Last [...] of proximal vein of right lower extremity [facility] 2024-04-19 10:49:04 Pt has NM stress test scheduled for next week. Ann Hassan RN [facility] 2024-04-18 16:20:23 Ivett Bran is a 78 year old female Pt needing an Stress Test Scheduled. Eugene Mercado [facility] 2024-04-18 13:02:50 Forms faxed on 04/18/2024 [facility] 2024-04-18 11:40:42 Ivett with [employer] is calling to follow up on the forms from [facility]. Ivett said the best fax to send it to them would be [phone]. Please advise. Giorgi Escalante [facility] 2024-03-29 15:57:54 Comprehensive Neurology Testing requisition form received and pending Provider review. RATNA 01/31/24 NOV 04/03/24-Dr. Christian T [facility] 2024-03-27 10:56:55 Received written order from [employer] [facility], requesting Providers signature. Placed in Providers box. Amrita Soto [facility] 2024-03-21 08:11:44 Duplicate encounter. Refer to telephone encounter dated 03/14/24. Closing out. [facility] 2024-03-20 09:25:44 Images from the [...] Israel MD Last refill: 12/22/2023 Rx #: [id number] Cardiovascular: Antilipid - HMG-CoA Reductase Inhibitors Vtrfqj1003/20/2024 08:36 AM Protocol Details Total Cholesterol within 360 days LDL within 360 days HDL within 360 days Triglycerides within 360 days Valid encounter within last 12 months AST in normal range and within 360 days ALT in normal range and within 360 days To be filled at: [facility] [place], [place] - [address] [place] [address] AT [address] Recent Visits Date Type Provider Dept 01/31/24 Office Visit Brian Israel MD [facility] 12/27/23 Office Visit Brian Israel MD [facility] 11/11/23 Office Visit Brian Israel MD [facility] 07/08/23 Office Visit Brian Israel MD [facility] 06/06/23 Office Visit Nehal Ttius FNP [facility] 05/05/23 Office [...] 03/27/24 Appointment Elsi Christian MD [facility] Showing future appointments within next 150 days with a meds authorizing provider and meeting all other requirements [facility] 2024-03-17 13:40:07 Received Comprehensive Neurology Testing Requisition Form from [employer] and have placed in provider's box. Tara Rubio [facility] 2024-03-15 13:31:45 Form for Comprehensive Neurology Testing recd from [facility] and pending Provider review. RATNA 01/31/24-Lindy NOV 03/20/24-Michael [facility] 2024-03-09 17:31:17 Continue to monitor BP. Bring log to next OV. T [facility] 2024-03-09 16:15:46 Patient checked BP at time of call and it was 157/72 HR 87. She stated has had an ongoing headache r/t sinus pressure and denied worsening. She also denied changes to DVT and reported compliance with Eliquis. Please review and advise. 03/13/24 T [facility] 2024-03-09 15:49:02 [facility] calling to let dr know bp is 169/76 and they also have headache when seen in home. Pt also has a clot in the right leg and the want to know if pt needs therapy Lyndsay Kim Eb [facility] 2024-03-01 15:55:57 Dr. Early reviwed and completed for oral surgery. Faxed back officer visit notes. Ankit Brooke MA [facility] 2024-03-01 09:57:40 Received cardiac clearance from Dr. Arteaga's office, placed in Dr. Early's folder for review. Thank you. Suzan Ramos MA [facility] 2024-02-22 09:33:18 Images from the original note were not included. Notes: 12/22/23 Last Refilled: [place], [place] - [address] [place] [address] [address] Recent Visits Date Type [...] Provider Dept 03/13/24 Appointment Brian Israel MD [facility] Showing future appointments within next 150 days [...] Israel MD Last refill: 01/20/2024 Rx #: [id number] Provider Review Required Sdherh9702/22/2024 06:40 AM Protocol Details This refill cannot be delegated Valid encounter within last 12 months To be filled at: [facility] [address] Sirena Galaviz MA [facility] 2024-02-15 09:11:01 Spoke with Candice Taylor. Will fax surgery clearance for Dr. Soares Evita Blanchard MA [facility] 2024-02-10 09:18:15 Candice Taylor dental requesting clearance to hold blood thinners for planned extractions. [facility] [phone] Fx. [phone] Early, "Please note patient taking Plavix from the vascular standpoint. Would recommend getting vascular surgery clearance also to stopping the Plavix perioperatively." [facility] 2024-02-10 09:08:06 Discussed recommendations with patient she verbalized understanding via teach back. Faxed Dr. Early's note to [facility]. Message sent to vascular regarding holding Plavix. [facility] 2024-02-09 21:49:46 Last office note updated. Please [...] perioperatively. Albert Early MD 02/09/2024 9:46 PM Ethylbenzene Oxidizer, Division of Cardiology [facility] T [facility] 2024-02-09 13:13:42 Fax form received. Placed in MDs inbox folder for chart review. Too Souza MA [facility] [employer] 2024-02-09 11:01:35 Images from the original note were not included. Notes: 09/28/23 Last Refilled: [facility] [place] - [place], [place] - [address] Recent Visits Date Type [...] Med 05/05/23 Office Visit Brian Israel MD [facility] 03/08/23 Office Visit Brian Israel MD [facility] 01/18/23 Office Visit Brian Israel MD [facility] 12/09/22 Office Visit Brian [...] Wyatt MD Last refill: 12/26/2023 Rx #: [id number] Endocrinology: Diabetes - Insulins Xpsksu3102/09/2024 06:49 AM Protocol Details Manual review: Staff refilling for [facility], Cr lab not required to refill Cr in normal range and within 360 days Valid encounter within last 12 months HBA1C within 180 days To be filled at: [facility] [address] [facility] [address] Sirena Galaviz MA [facility] 2024-02-09 09:49:07 Ivett Bran is a 78 year old female [facility] calling to cardiac clearance for pt to have dental extractions. Pt takes blood thinners. Please advise. Mariely is sending request in today. Please send to [facility]. [phone] Fx. [phone] Steven Bustos [facility] 2024-02-01 15:56:53 Anabella with [facility] is informing the clinic that the patients blood sugar is 311. Patient had a hamburger and onion rings for dinner and she has not taking her insulin today. Insulin was administered during visit. Dileep Frank [facility] 2024-01-30 16:55:49 Images from the original note were not included. Cr not in range Notes: 06/24/23 Last [facility] [address] Recent Visits Date Type [...] Early MD Last refill: 10/28/2023 Rx #: [id number] Cardiovascular: Loop Diuretics Fnuxxz2701/29/2024 06:50 AM Protocol Details Cr in normal range and within 180 days Valid encounter within last 12 months K in normal range and within 180 days To be filled at: [facility] [address] AT [address] Sirena Galaviz MA [facility] 2024-01-17 15:46:39 TRANSITIONAL CARE MANAGEMENT ASSESSMENT 01/17/2024 Ivett Bran [id number] Ivett Bran is a 78 year old /White female was admitted on 01/16/24 to [facility]. She was discharged on 01/16/24 with discharge disposition of HR- Routine Discharge. Admitting Physician: Discharge Diagnosis: SOB (shortness of breath) Cardiomegaly Acute pulmonary edema No linked episodes TCM Wug-ivlv-mo-face outreach documentation: Future Appointments: Future Appointments Provider Department Dept Phone 01/30/2024 10:30 AM Jamshid Early MD [facility] Cardiology, [facility] [phone] 01/31/2024 10:40 AM Brian Israel [facility] [phone] 03/08/2024 9:40 AM Xenia Lomeli MD [facility] Medical Oncology, [facility] [phone] 04/10/2024 1:00 PM Jayden Mitchell MD [facility] Endocrinology, [facility] [phone] Transition CM attempted to contact patient x2. CM left a discreet voicemail explaining purpose of call and call back information. Abigail Ley RN, MSN, MEDSUR-, CCRN, CCM Transitions of Store Clerk Proficient Commercial Stripper Ambulatory Referral Coordination Office: [phone] Abigail Ley RN [facility] 2024-01-17 11:24:39 CM LVM to return call. Will attempt again at a later time. [facility] 2024-01-16 20:28:09 Pt given printed and verbal [...] resp reg unlabored, skin w/d, pt with [facility] on stretcher, in no apparent distress, Mitesh Warner RN [facility] 2024-01-16 18:54:57 Nurse Report Report given to CHRISSY Warner. Chief complaint, assessment findings, infusion verify and orders reviewed. Plan of care discussed with both nurses. Lucia Rodriguez RN Lucia Rodriguez RN [facility] 2024-01-16 15:52:55 Pt arrived via pov c/o SOB per daughter in law that started today. Pt is currently on antibiotics for UTI. Ann Hernadez RN [facility] 2023-12-22 13:40:29 Sent. [facility] 2023-12-22 11:10:39 Please review and refill if appropriate [facility] 2023-12-22 10:01:39 Copied from [facility] #[id number]. Topic: Clinical - Order >> Dec 22, 2023 10:00 AM Patient Automotive Glass Technician wrote: Pts caregiver Flora is calling and states the pt is needing a refill on her baclofen 10 mg. Flora says the pt is out of this med and [facility] has been trying to get it filled since 12-08-23. Please advise on refill, thank you! [facility] [place], [place] - [address] [facility] AT [address] [facility] [address] Giorgi Escalante [facility] 2023-12-09 10:35:10 Last Refilled: metoprolol tartrate 25 mg tablet 90 tablet 1 07/20/2022 -- No Sig: Take 0.5 tablets by mouth in the morning and 0.5 tablets in the evening. Sent to pharmacy as: metoprolol tartrate 25 mg tablet (LOPRESSOR) Class: eRX Route: Oral Order: [id number] Date/Time Signed: 07/20/2022 15:39 E-Prescribing Status: Receipt confirmed by pharmacy (07/20/2022 3:39 PM AUCTION BLOCK CLERK) Recent Visits Date Type Provider Dept 11/11/23 Office Visit Brian Israel MD [facility] 09/21/23 Office Visit Jamshid Early MD [facility] Cardiology Faculty 07/13/23 Office Visit David Lima MD [facility] Cardiology Faculty 07/08/23 Office Visit Brian Israel MD [facility] 06/22/23 Office Visit Jamshid Early MD [facility] Cardiology Faculty 06/06/23 Office Visit Nehal Titus FNP [facility] 05/05/23 Office Visit Brian Israel MD [facility] 04/27/23 Office Visit David Lima MD [facility] Cardiology Faculty 03/08/23 Office Visit Brian Israel MD [facility] 01/18/23 Office Visit Brian Israel MD [facility] Showing recent visits within past 540 days with a meds authorizing provider and meeting all other requirements Future Appointments Date Type Provider Dept 12/16/23 Appointment Jamshid Early MD [facility] Cardiology Faculty 12/27/23 Appointment Brian Israel MD [facility] Showing future appointments within next 150 days with a meds authorizing provider and meeting all other requirements Olga Warner [facility] 2023-12-07 07:03:02 Notes: Please Review Last Refilled: [...] to Pharmacy: Sending Erx refill request Order: [id number] Date/Time Signed: 11/01/2023 12:32 E-Prescribing Status: Receipt [...] and meeting all other requirements Olga Warner [facility] 2023-12-06 14:41:51 Spoke with she doesn't know if she wants to go to ER, will make a decision in a few days and let us know. Olga Warner [facility] 2023-12-06 13:26:04 I recommend ER evaluation. She has a complicated medical history, and I am worried she did not improve on the antibiotics I sent. I want her to be evaluated thoroughly and quickly. Best, Dr. Israel [facility] 2023-12-06 12:39:31 Copied from [facility] #[id number]. Topic: Clinical - Medical Advice >> Dec 06, 2023 12:38 PM Patient Automotive Glass Technician wrote: Ivett Bran is a 77 year old female Lilliam with [facility] is calling back to speak with clinical staff; she is concerned because Pt still is not feeling any better. Please advise. Essence Marino [facility] 2023-12-05 16:45:21 Please review and advise. [facility] 2023-12-05 13:30:29 Copied from [facility] #[id number]. Topic: Clinical - Medical Advice >> Dec 05, 2023 1:28 PM Patient Automotive Glass Technician wrote: Lilliam with [facility] is notifying the clinic that the patient finished Antibiotics for bladder infection. Patient is nauseated and throwing up and is not feeling well. Urine is yellow and cloudy and has an odor. Please advise. Lilliam is not with the patient. Dileep Frank [facility] 2023-11-21 15:30:35 Called pt, said she was nauseated prior to abx. Sent Zofran. Will add on to clinic day tomorrow if she feels worse. [facility] 2023-11-21 14:51:25 Please review and advise. Martha Espinosa RN [facility] 2023-11-21 13:20:55 Copied from [facility] #[id number]. Topic: Clinical - Medical Advice >> November 21, 2023 1:19 PM Patient Automotive Glass Technician wrote: Lilliam with [facility] states the pt has been throwing up and feeling nauseous do to the antibiotics for her UTI. Lilliam is asking if something can be called into the pharmacy to help, please advise. Lillima said to call the pt back at: [phone] [facility] [place], [place] - [address] [place] [address] AT [facility] [address] [facility] [address] Giorgi Escalante [facility] 2023-11-14 12:00:00 Patient presented with specimen for drop-off and was identified by and name. Collection information/ total volume were documented accordingly. The following specimens were sent to [facility] laboratories per lab order on 11/14/2023 : 24 hour urine Random urine 1 Stool Swab Other [facility] 2023-11-11 12:15:00 Images from the original note were not included. Venipuncture collection performed by clean technique on the left anticubitus. Total of 1 attempts were made. Slight pressure and a bandage/dressing were applied to the site(s). The patient experienced no complications. The following specimens were processed according to instructions and sent to [facility] laboratories per lab order on 11/11/2023 : [...] Urine Culture Aptima tube Other urine T [facility] 2023-11-11 10:40:00 Addended by: BRIAN ISRAEL on: 11/11/2023 02:16 PM Modules accepted: Level of Service T [facility] 2023-11-08 08:37:03 FYI T Arcelia Dumont LVN [facility] 2023-11-07 14:30:08 Ivett Bran is a 77 year old female and Mare a nurse with [facility] is calling about the pts blood sugar levels over the weekend while employee relations administrator for Wound Care. Mare stated that the [...] her about taking the insulin. Anna Guadarrama [facility] 2023-11-03 15:33:19 Images from the original note [...] or concerns? no VIPIN Angulo, RN, CCRN Store Clerk, Transitions of Care [email or web address] Bridgette Black RN [facility] 2023-11-01 13:46:17 Corrected and resent Yolanda Solomon LVN [facility] 2023-11-01 07:27:20 Notes: Please Review Last Refilled: [...] to Pharmacy: Sending Erx refill request Order: [id number] Date/Time Signed: 09/05/2023 09:30 E-Prescribing Status: Receipt confirmed by pharmacy (09/05/2023 9:30 AM AUCTION BLOCK CLERK Recent Visits Date Type Provider Dept 07/08/23 [...] and meeting all other requirements Olga Warner [facility] 2023-10-30 17:38:55 [facility] home. Follow up with pcp. Verbalized understanding. Signed paper work for dc. Colten Miranda RN [facility] 2023-10-30 14:33:31 Patient arrived in wheelchair with caregiver c/o of a diabetic leg wound. Home health nurse came out today to do wound care and the nurse di not like the coloring of the wound per patient and wanted her to get the wound checked out. Lucia Rodriguez RN [facility] 2023-10-28 09:20:55 Ivett Bran is a 77 year old [facility] is calling to request clarification for semaglutide (OZEMPIC) 2 mg/dose (8 mg/3 mL) PnIj, Pharmacist states, prescription was sent without directions, Please advise [facility] [address] [place] [facility] [address] Anabella Almonte [facility] 2023-10-27 11:45:31 Ivett Bran is a 77 year old female [facility] pharmacy is calling for directions on Ozempic. Please call [facility] [address] Ana Kelly [facility] 2023-10-27 09:59:32 RATNA 05/23/23 NOV 11/22/23 Patient's dose increased by Dr. Haynes on 07/12/23 to 2mg weekly. Yolanda Solomon LVN [facility] 2023-10-27 07:45:12 Images from the original note [...] Israel MD Last refill: 07/04/2023 Rx #: [id number] Controlled Substance Paglgn8310/26/2023 07:26 PM Protocol Details Valid encounter within last 3 months This refill cannot be delegated Pain agreement on file To be filled at: [facility] [address] AT [address] Recent Visits Date Type Provider Dept 07/08/23 [...] meeting all other requirements Arcelia Dumont LVN [facility] 2023-10-14 13:16:06 Ivett Bran is a 77 year old female patient had a fall/stumble earlier in the week had a tear in skin on elbow, but wound is fine already scabbed over. Please call with any questions. [phone] Talia Garcia [facility] 2023-10-11 14:27:36 Medical records request form received from [employer] faxed to HIM to process Zeenat Bobo [facility] 2023-10-10 11:30:[address] in provider Nehal Tacho box. Singed and faxed over today Sirena Galaviz MA [facility] 2023-09-28 08:23:06 Images from the original note [...] Israel MD Last refill: 08/15/2023 Rx #: [id number] Endocrinology: Diabetes - Insulins Isfbcu9109/28/2023 06:43 AM Protocol Details Manual review: Staff refilling for [facility], Cr lab not required to refill Cr in normal range and within 360 days Valid encounter within last 12 months HBA1C within 180 days To be filled at: [facility] [place], [place] - [address] [place] [address] [address] CREATININE (mg/dL) Date Value 09/21/2023 1.28 (H) Recent Visits Date Type Provider Dept 07/08/23 Office Visit Brian Israel MD [facility] 06/06/23 Office Visit Nehal Titus FNP [facility] 05/05/23 Office Visit Brian Israel MD [facility] 03/08/23 Office Visit Brian Israel MD [facility] 01/18/23 Office Visit Brian Israel MD [facility] 12/09/22 Office Visit Brian Israel MD [facility] 09/28/22 Office Visit Brian Israel MD [facility] 08/31/22 Office Visit Brian Israel MD [facility] 07/30/22 Office Visit Brian Israel MD [facility] 07/15/22 Office Visit Brian Israel MD Ang-Sharath [facility] Showing recent visits within past 540 days with a meds authorizing provider and meeting all other requirements Future Appointments Date Type Provider Dept 11/11/23 Appointment Brian Israel MD [facility] Showing future appointments within next 150 days with a meds authorizing provider and meeting all other requirements Arcelia Dumont LVN [facility] 2023-09-23 11:41:50 Looks like she is on 40 mg? Has dose been changed? Shahzad Wyatt MD FM-FAMILY MEDICINE STAFF [facility] 2023-09-22 13:41:22 Images from the original note were not included. Requested Renewals Name from pharmacy: Pravastatin 80mg Tablet Will file in chart as: PRAVASTATIN 80 mg tablet The original prescription was discontinued on 04/19/2023 by Shahzad Pro, TYLER. Renewing this prescription may not be appropriate. Sig: TAKE ONE (1) TABLET(S) BY MOUTH AT BEDTIME. Disp: 90 tablet (Pharmacy requested: 90 Each) Refills: 3 (Pharmacy requested: Not specified) Start: 09/22/2023 Class: eRX For: Wound of left lower extremity, initial encounter; Lymphedema of both lower extremities Last ordered: 1 year ago (09/06/2022) by Brain Israel MD Last refill: 02/25/2023 Rx #: [id number] Cardiovascular: Antilipid - HMG-CoA Reductase Inhibitors Jkntui3009/22/2023 01:23 PM Protocol Details Valid encounter within last 12 months Total Cholesterol within 360 days LDL within 360 days HDL within 360 days Triglycerides within 360 days AST in normal range and within 360 days ALT in normal range and within 360 days To be filled at: [facility] [address] Recent Visits Date Type Provider Dept 07/08/23 Office Visit Brian Israel MD [facility] 06/06/23 Office Visit Nehal Titus FNP [facility] 05/05/23 Office Visit Brian Israel MD [facility] 03/08/23 Office Visit rBian Israel MD [facility] 01/18/23 [...] meeting all other requirements Arcelia Dumont LVN [facility] 2023-09-21 10:35:05 Dionne negron to have form refaxed will place in provider bx once received T [facility] 2023-09-21 10:30:00 Images from the original note were not included. Venipuncture collection performed by clean technique on the left anticubitus. Total of 1 attempts were made. Slight pressure and a bandage/dressing were applied to the site(s). The patient experienced no complications. The following specimens were processed according to instructions and sent to [facility] laboratories per lab order on 09/21/2023 : LT BLUE SST 1 RED LAV 1 PPT DK GREEN (LiHep) DK GREEN (SodH) DERAS DK BLUE (K2) DK BLUE (S) ACD Blood Culture NIPT/NTD Early orders per pt request T [facility] 2023-09-20 09:57:33 Attempted to contact migdalia no answer lmtcb T [facility] 2023-09-15 11:47:23 Ivett Bran is a 77 year old female and Migdalia from [email or web address] is calling to check on order request. Was sent through Fax on 09/07/23 and has not received any updates on status please call to confirm if received and being completed. - States that it is time sensitive for the orders Anna Guadarrama [facility] 2023-09-12 14:54:04 Migdalia with [employer] is checking the status of a fax sent on 09/07/23 and to please send fax back she said as soon as possible. Norma Berrios [facility] 2023-09-07 15:23:18 Ivett Bran is a 77 year old female Migdalia with Lab service called because she faxed over a lab order this morning and wanted to know if the clinic received it. EET Muñoz [facility] 2023-09-02 15:05:10 Spoke [facility] nurse and advised her per covering provider Razia Garvin patient would need to be seen in office to be treated. She verbalized understanding and will let the patient know. Arcelia Dumont LVN 09/02/2023 3:06 PM ION BLOCK CLERK Arcelia Dumont [facility] 2023-09-02 14:57:54 Pts provider is out of office. R/t pts hx and vomiting all night , its best she be evaluated to see what's causing her to vomit. [facility] 2023-09-02 14:53:47 Can you please review ION BLOCK CLERK Arcelia Dumont [facility] 2023-09-02 14:41:15 Ivett Bran is a 77 year old female Anabella called back to see the status of the medication. The pt needs something for vomiting and she has chest congestion. The pt is in a wheel chair and can not come into the clinic. Rsp 09/01 EET Fu [facility] 2023-09-02 14:02:36 Please review and advise. Recent Visits Date Type Provider Dept 07/08/23 Office Visit Brian Israel MD Ang[facility] Med 06/06/23 Office Visit Nehal Titus FNP [facility] 05/05/23 Office Visit Brian Israel MD [facility] 03/08/23 Office Visit Brian Israel MD [facility] 01/18/23 Office Visit Brian Israel MD [facility] 12/09/22 Office Visit Brian [...] authorizing provider and meeting all other requirements ION BLOCK CLERK [facility] 2023-09-02 13:55:15 Ivett Bran is a 77 year old female [place], 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 She is requesting for PCP to prescribe something to help her stomach. If there are any questions please call [phone]. ION BLOCK CLERK Berna Boss [facility] 2023-08-24 09:19:00 Regard[age] yr female cloudy urine, and strong odor x 2 days ----- Message from Ron Ramos sent at 08/24/2023 9:17 AM AUCTION BLOCK CLERK ----- Ivett Bran is a 77 year old female, field care manager with pt calling Specific Symptoms: cloudy urine, and strong odor Specific Duration: x 2 days - Declined apt or UC, requesting UTI meds, advised nurses cannot prescribe up to providers discretion EET Bailey RN [facility] 2023-08-24 09:19:00 Adult Triage Assessment Last Clinic [...] Care if symptoms worsen Simba LEW, RN [facility] Access Center Reason for Disposition Bad or foul-smelling urine Protocols used: Urinary [id number]-OUYOF-WE [facility] 2023-08-24 09:19:00 Needs to see someone [facility]ILY MEDICINE STAFF [facility] 2023-08-24 09:19:00 OV required [facility]ENTER[facility] MEDICINE STAFF [facility] 2023-08-24 09:19:00 Notified caregiver office visit is required as Dr. Israel is out on maternity leave. She has active standing orders for UA and UC as patient has recurrent infections and is bed bound. They will bring by sample tomorrow. Arcelia Dumont LVN 08/24/2023 1:28 PM EET Dumont LVN [facility] 2023-08-23 10:32:06 Images from the original note were not included. Notified caregiver Flora sasha Early: Jamshid Early MD P Cardiology Nurse Short paroxysmal A-fib episodes noted. Baseline artifact noted in the event monitor. No other significant arrhythmias. Follow-up with EP as already scheduled this month. Verbal understanding. EET Acuna MA [facility] 2023-08-22 09:27:04 Medication refilled per policy: Last office visit: 07/08/23 Next office visit: 11/11/23 Requested Prescriptions Pending Prescriptions Disp Refills ESCITALOPRAM OXALATE 10 mg tablet [Pharmacy Med Name: Escitalopram 10mg Tablet] 90 tablet 3 Sig: TAKE ONE (1) TABLET(S) BY MOUTH EVERY MORNING. Last fill date: 08/31/22 Notes: Depression, unspecified depression type [facility] 2023-08-05 15:37:51 Attempted to contact patient no answer contacted pharmacy who stated she picked it up 07/14/2023 [facility] 2023-07-21 13:04:51 Dr. Haynes ordered it 07/12/23 to [facility] in [place]. Please verify w/ patient/pharmacy. Best, Dr. Israel [facility] 2023-07-20 11:03:16 Patient requesting refill on Ozempic 2mg/dose 8mg3ml pen. ION BLOCK CLERK [facility] 2023-07-18 12:21:23 Recent Visits Date Type Provider [...] pharmacy as: traZODone 50 mg tablet (DESYREL) [facility] Dara Delgado MA [facility] [facility] 2023-07-14 15:44:11 Called patient to inquire how she is feeling. Stated that she has been having issues keeping the monitor stuck to her, and is having skin irritation. Reminded to call the number on the inside of the box to have [facility] send some hypoallergenic patches to provide better comfort, no c/o dizziness or lightheadedness EET Gallagher RN [facility] 2023-07-14 12:49:54 Preventice strips reviewed. Noted to have atrial fibrillation with controlled ventricular response. Will continue to monitor. ION BLOCK CLERK [facility] 2023-07-14 08:06:27 Received monitor readings from ORDISSIMO will put into Dr. Early folder for review. EET Bob MA [facility] 2023-07-13 16:26:17 PA submitted to [facility]. Awaiting response EET Solomon LVN [facility] 2023-07-13 12:17:33 [facility] called to notify that at 1028 AM today patient went into A-fib 70 bpm as noted on the event monitor Stated that there is some artifact noted Routed to Dr Early for advice EET Gallagher RN [facility] 2023-07-13 11:45:53 Images from the original note were not included. EET Ahn [facility] 2023-07-13 08:30:00 30-day event monitor applied to patient, tolerated well. Baseline tracing sent/confirmed by company. Instructed on recording manual events, wear, care and return of device; understanding verbalized via teach back. Monitor to be returned to ([facility]) on 08/13/23. EET Gallagher RN [facility] 2023-07-12 13:34:06 RATNA 05/23/23 NOV 11/22/23 Per RATNA note: Varunallison Jared Rahmanshabnam WOOD MILLING MACHINE OPERATOR [facility] 2023-07-11 16:39:08 Images from the original note were not included. Last Refilled: 01/18/23 Notes: [facility] [address] AT [address] Recent Visits Date Type [...] refill: 01/18/2023 Provider Review Required - nystatin [id number]/11/2023 04:24 PM Protocol Details This refill cannot be delegated Valid encounter within last 12 months To be filled at: [facility] [place] - [place], [place] - [address] [facility] Sirena Galaviz MA [facility] 2023-06-24 12:09:30 Images from the original note [...] done in 2 weeks time. Orders placed. [facility] 2023-06-23 07:45:28 Last Refilled: Disp Refills Start End CELSO PREGABALIN 50 mg capsule 90 capsule 0 03/02/2023 -- No Sig: TAKE ONE (1) CAPSULE(S) BY MOUTH AT BEDTIME. Sent to pharmacy as: pregabalin 50 mg capsule (LYRICA) Class: eRX Notes to Pharmacy: Sending Erx refill request Order: [id number] Date/Time Signed: 03/02/2023 13:02 E-Prescribing Status: Receipt [...] authorizing provider and meeting all other requirements ION BLOCK CLERK Martha Espinosa RN [facility] 2023-06-22 11:00:00 Images from the original note were not included. Venipuncture collection performed by clean technique on the left anticubitus. Total of 1 attempts were made. Slight pressure and a bandage/dressing were applied to the site(s). The patient experienced no complications. The following specimens were processed according to instructions and sent to [facility] laboratories per lab order on 06/22/2023 : LT BLUE SST 1 RED LAV 1 PPT DK GREEN (LiHep) DK GREEN (SodH) DERAS DK BLUE (K2) DK BLUE (S) ACD Blood Culture NIPT/NTD Dr early orders only ION BLOCK CLERK [facility] 2023-06-22 11:00:00 Labs dated 06/22/2023 labs done [...] done in 2 weeks time. Orders placed. [facility] 2023-06-22 11:00:00 Addended by: JAMSHID EARLY on: 06/22/2023 07:48 PM Modules accepted: Orders [facility] 2023-03-22 15:58:52 Formatting of this n ote might be different from the original. Patient seen in office by provider 03/08/2023. Esther Oconnor RN [facility] 2023-03-10 07:57:23 Formatting of this n ote might be different from the original. Received POC from [facility] requesting Provider signature. Placed in Provider box. Amrita Soto [facility] 2023-02-28 10:55:41 Formatting of this n ote [...] Israel MD Last refill: 01/28/2023 Rx #: [id number] Controlled Substance Failed 02/28/2023 10:40 AM Protocol [...] Israel MD Last refill: 11/12/2022 Rx #: [id number] Controlled Substance Failed 02/28/2023 10:40 AM Protocol Details Valid encounter within last 3 months Pain agreement on file This refill cannot be delegated To be filled at: [facility] [address] AT [address] Recent Visits Date Type [...] meeting all other requirements Arcelia Dumont LVN [facility] 2023-02-22 12:01:24 Formatting of this n ote is different from the original. TRANSITIONAL CARE MANAGEMENT ASSESSMENT 02/22/2023 Ivett Bran [id number] Ivett Bran is a 77 year old /White female was admitted on 02/20/23 to [facility]. She was discharged on 02/21/23 with discharge disposition of HR- Routine Discharge. Admitting Physician: Sam Meredith Discharge Diagnosis: Altered mental status-patient with altered mental status 2. Osteoarthritis 3. Pelvic wounds; No linked episodes TCM Drq-gssy-dn-face outreach documentation: Discharge Assessment Chart Assessed: 02/22/23 [...] Phone 03/08/2023 4:20 PM Brian Israel MD [facility] [phone] 03/21/2023 10:40 AM Brian Israel MD [facility] [phone] 04/06/2023 1:30 PM Jamshid Early MD [facility] [place] [phone] 05/23/2023 10:30 AM Erick Larios MD [facility] [phone] 06/22/2023 10:00 AM Jamshid Early [facility] [phone] 12/26/2023 10:00 AM 1, Ad[facility] Lab [facility] [phone] 12/29/2023 11:00 AM Xenia Lomeli MD [facility] Hematology-Oncology [facility] [phone] Alda Morrison RN [facility] 2023-02-21 17:09:24 Formatting of this n ote might be different from the original. Problem: Pain Goal: Control of pain at or below patient's documented comfort goal 02/21/2023 170 by Vanessa Ramirez RN Outcome: Adequate for discharge 02/21/2023 1632 by Vanessa Ramirez RN Outcome: Progressing as expected Problem: Discharge Planning Goal: Adequate for discharge 02/21/2023 170 by Vanessa Ramirez RN Outcome: Adequate for discharge 02/21/2023 1632 by Vanessa Ramirez RN Outcome: Progressing as expected Goal: Effective communication 02/21/2023 170 by Vanessa Ramirez RN Outcome: [...] of venous thromboembolism (Risk) 02/21/2023 170 by Vanessa Ramirez RN Outcome: Adequate for discharge 02/21/2023 1632 by Vanessa Ramirez RN Outcome: Progressing as expected Problem: Skin integrity Impaired (Risk or Actual) Goal: Prevention of new skin breakdown 02/21/2023 1709 by Vanessa Ramirez RN Outcome: Adequate for discharge 02/21/2023 1632 by Vanessa Ramirez RN Outcome: Progressing as expected Vanessa Ramirez RN [facility] 2023-02-21 16:32:28 Formatting of this n ote [...] new skin breakdown Outcome: Progressing as expected [facility] 2023-02-21 06:16:30 Formatting of this n ote [...] Outcome: Progressing as expected Germaine Olson RN [facility] 2023-02-20 23:36:04 Formatting of this n ote might be different from the original. Report given to CHRISSY Dorado. Patient to be admitted to 2221. Pt agree with POC and no questions at this time. Uri Godoy RN [facility] 2023-02-20 20:16:48 Formatting of this n ote might be different from the original. [facility] brought the pt in after being [...] upon arrival to ED Humaira Walton RN [facility] 2023-02-20 20:10:00 Formatting of this n ote [...] hospitalization AdmissionCare documentation entered by: Ramírez Culp [facility], 27th edition, Copyright 2022 [email or web address] All Rights Reserved. [id number]:00 [facility] EM[facility]Y PHYSICIAN STAFF [facility] 2023-02-18 17:24:55 Formatting of this n ote might be different from the original. Spoke with Kristy from [facility] and gave a verbal order: Pt is to continue with 4-layer compression dressings bilaterally Change dressings every 3 days Vascular studies were previously ordered and scheduled for 02/22/23 Left VM for pt on her cell to call the office and schedule a f/u appt Roel Hoang APRN, MSN, [facility]- Vascular Surgery [employer]ACE HARDENER-CRITICAL CARE MEDICINE [facility] 2023-02-15 17:29:25 Formatting of this n ote might be different from the original. I sent the RX a couple of weeks ago. Does she already need a refill? Best, Dr. Israel [facility] 2023-02-15 16:26:43 Formatting of this n ote [...] MOUTH EVERY SIX HOURS NEEDED FOR PAIN. T Dara Delgado MA [facility] 2023-02-11 13:04:27 Formatting of this n ote might be different from the original. I do not have a good alternative at this time. She may just have to increase her insulin if she used to be on it and stopped. I recommend contacting endocrine or discussing at next visit as they may know of an assistance program. [facility] 2023-02-11 10:04:00 Formatting of this n ote might be different from the original. Pt says she cant get ozempic want to know what alternative is or should she take more of the other meds she has Milena Rubio [facility] 2023-02-10 14:47:03 Formatting of this n ote might be different from the original. Ivett Bran is a 77 year old female pt Kristy from [employer] is calling to see if they can order the 4 layer compression wrap for the pt. Please put the directions on when to take them on and off [phone] Fax.[phone] Juli Shipley V [facility] 2023-02-09 09:44:10 Formatting of this n ote might be different from the original. Ivett Bran is a 77 year old female Patients caregiver is calling to schedule Vascular US. Please assist. Contact at [phone] Livia Acuna [facility] 2023-02-03 09:28:31 Formatting of this n ote [...] 01/18/23 Office Visit Brian Israel MD [facility] 12/09/22 Office Visit Brian Israel MD [facility] 09/28/22 Office Visit Brian Israel [...] Med 04/22/22 Office Visit Brian Israel MD [facility] Showing recent visits within past 540 days with a meds authorizing provider and meeting all other requirements Future Appointments Date Type Provider Dept 03/21/23 Appointment Brian Israel MD [facility] Showing future appointments within next 150 days with a meds authorizing provider and meeting all other requirements Khadijah Gomez MA [facility] 2023-01-28 12:55:28 Formatting of this n ote is different from the original. Images from the original note were not included. Last Refilled: 12/23/22 Notes: [facility] [place], [place] - [address] [place] [address] [address] Recent Visits Date [...] Israel MD Last refill: 12/23/2022 Rx #: [id number] Controlled Substance Failed 01/28/2023 11:39 AM Protocol Details Valid encounter within last 3 months Pain agreement on file This refill cannot be delegated To be filled at: [facility] [address] Sirena Galaviz MA [facility] 2023-01-21 14:46:18 Formatting of this n ote might be different from the original. Received Home Health Certification and Plan of Care. Placed in the providers box. Ochoa Mcguire [facility] 2022-03-16 07:13:04 Images from the original note were not included. Changes Requested Name from pharmacy: FREESTYLE KANDI 2 SENSOR Will file in chart as: FREESTYLE KANDI 2 SENSOR Kit Possible duplicate: [place] to review recent actions on this medication Si Each every 7 (seven) days. Apply every 10 days Disp: 1 Kit Refills: 0 Start: 03/15/2022 Class: eRX Non-formulary For: Type 2 diabetes mellitus with hyperglycemia, with long-term current use of insulin Last ordered: Yesterday by Brian Israel MD Last refill: 03/15/2022 Rx #: [id number] Pharmacy comment: Script Clarification:THE SENSOR SUPPOSED TO BE CHANGED EVERY 14 DAYS, PLEASE CLARIFY. To be filled at: [facility] [id number] [place] [address] Arcelia Dumont LVN [facility] [employer] 2018-04-26 15:50:54 Rx sent in. Let patient know. [facility] [employer]
[2024-11-06 13:12] LABS: Albumin 2.6 g/dL (3.4-5.0); Albumin/Globulin Ratio 0.6 (1.1-1.8); Anion Gap 8.1 mEq/L (5.0-15.0); Bilirubin Direct 0.2 mg/dL (0-0.2); Bilirubin Indirect, Calculated 0.2 mg/dL (0.2-0.8); Bilirubin Total 0.4 mg/dL (0.2-1.0); Globulin 4.3 g/dL (2.3-3.5); Magnesium 1.9 mg/dL (1.6-2.4); Potassium 4.1 mEq/L (3.5-5.1); Protein, Total 6.9 g/dL (6.4-8.2); Troponin High Sensitivity 28.3 pg/mL (<58.9)
--- NOTE | 2024-11-06 13:46 | RAD REPORT ---
EXAMINATION: US Extrem Venous W Compress Jeevan CLINICAL INDICATION: [facility] MAIN PAIN Bed Name: 18 N TECHNIQUE: Complete bilateral duplex sonography of the BILATERAL lower extremity veins was performed. The examination included compression for vein patency, color Doppler imaging and flow augmentation in response to distal compression of the distal external iliac, common femoral, femoral, popliteal, t ibial, and great and small saphenous veins. COMPARISON: No prior exam. FINDINGS: Duplex sonography testing of the veins of the BILATERAL lower extremity was performed. Color flow natali ging shows all veins to be compressible with [id number] color filling. Pulsatile and phasic flow is present within all lower extremity deep and superficial veins examined. IMPRESSION: There is no deep vein or superficial vein thrombosis.
[2024-11-06] MEDS ORDERED: NA CHLORIDE 0.9% 500 ML ONE (13:48)
--- NOTE | 2024-11-06 14:04 | RAD REPORT ---
EXAMINATION: ONE VIEW CHEST XR CLINICAL INDICATION: Female, 78 years old.,DYSPNEA TECHNIQUE: Frontal chest projection is submitted. Examination is limited by patient positioning and t echnique. COMPARISON: 02/03/2022 FINDINGS: Central interstitial prominence, mildly progressive since prior exam. No new focal consolidation. No pneumothorax or sizable effusion although there is stable blunting of the left costophrenic angle which may reflect atelectasis, pleural thickening, or trace effusion. Stable cardiomegaly. Mediastina l contours are unremarkable. IMPRESSION: Mildly progressive central interstitial prominence, may reflect central congestion or CHF.
--- NOTE | 2024-11-06 14:23 | RAD REPORT ---
EXAM: CT Head Brain Wo Cont HISTORY: MENTAL STATUS CHANGE COMPARISON: 10/06/2024 TECHNIQUE: Multiple contiguous axial images were obtained for a CT of the brain without contrast. Sag ittal and coronal reformats were performed. One or more of the following dose reduction techniques were used: Automated exposure control, adjus tment of the mA and kV according to patient size, and iterative reconstruction. Unless otherwise specified, incidental findings do not require dedicated imaging follow-up. FINDINGS: Mild motion artifact particularly near the vertex limits evaluation. No evidence of hydrocephalus, intracranial hemorrhage, or extra-axial fluid collection. The brain is normal in morphology. The calvarium is intact. Hyperostosis frontalis interna again seen. The visualized paranasal sinuses and mastoid air cells are essentially clear. IMPRESSION: No evidence of acute intracranial abnormality.
[2024-11-06] MEDS ORDERED: FAMOTIDINE 20 MG/2 ML VIAL IV ONE (15:01)
[2024-11-06] MEDS ORDERED: DIPHENHYDRAMINE 50 MG/ML VIAL ONE (15:01)
[2024-11-06] MEDS ORDERED: MUPIROCIN 2% OINT 22GM TUBE TOP ONE (15:01)
[2024-11-06 15:20] LABS: Specific Gravity 1.009 (1.005-1.030); Sqamous Epithelial <5 /HPF (None Seen); Urine Bacteria None Seen /HPF (<20); Urine Bilirubin NEGATIVE (Negative); Urine Blood 3+ (Negative); Urine Clarity Turbid (Clear); Urine Color Colorless (Yellow); Urine Crystals Unidentified Few /HPF (None Seen); Urine Culture Reflex Order NOT NEEDED; Urine Glucose NEGATIVE (Negative); Urine Ketones NEGATIVE (Negative); Urine Microscopic Reflex YN ORDER UMIC; Urine Mucus Slight /HPF (None Seen); Urine Nitrite NEGATIVE (Negative); Urine Protein 1+ (Negative); Urine Urobilinogen Normal (Normal); Urine Yeast (Budding) Trace /HPF (None Seen); Urine pH 6.5 (5.0-7.0)
--- NOTE | 2024-11-06 15:55 | EDPHYS ---
Physician Documentation [facility] Name: Stephany Bran Age: 78 yrs Sex: Female : 1945 Arrival Date: 11/06/2024 Time: 12:08 Bed 18 Private MD: ED Physician Job Hoang HPI: 11/06 15:36 This 78 yrs old Female presents to ER via EMS with complaints of Altered miguel Mental Status, Leg Pain. 15:36 The patient presents with trouble concentrating. Onset: The symptoms/episode miguel began/occurred 3 day(s) ago. Possible causes: sepsis, venous stasis bilateral. Associated signs and symptoms: Pertinent positives: weakness. Current symptoms: In the emergency department the patient's symptoms have improved, moderately. Current symptoms: In the emergency department the patient's symptoms have improved. The patient has experienced similar episodes in the past, several times. Historical: - Allergies: 12:23 Ciprofloxacin; dd2 12:23 Demerol; dd2 12:23 Erythromycin; dd2 12:23 Losartan; dd2 12:23 MACROLIDES; dd2 12:23 Metformin HCl; dd2 12:23 metronidazole; dd2 12:23 Myacin family; dd2 12:23 PENICILLINS; dd2 12:23 pentoxifylline; dd2 - PMHx: 12:23 Atrial fibrillation; diabetes mellitus; Glaucoma; Hypothyroidism; neuropathy; dd2 osteoarthritis; Osteoporosis; PVD (hystertectomy); LYMPHEDEMA (hystertectomy); - PSHx: 12:23 hystertectomy (or); dd2 - Immunization history:: Adult Immunizations unknown. - Infectious Disease History:: Denies. - Social history:: Smoking status: Patient denies any tobacco usage or history of. ROS: 15:45 Constitutional: Negative for fever, chills, and weight loss, Eyes: Negative for injury, miguel pain, redness, and discharge, ENT: Negative for injury, pain, and discharge, Neck: Negative for injury, pain, and swelling, Cardiovascular: Negative for chest pain, palpitations, and edema, Respiratory: Negative for shortness of breath, cough, wheezing, and pleuritic chest pain, Abdomen/GI: Negative for abdominal pain, nausea, vomiting, diarrhea, and constipation, Back: Negative for injury and pain, Psych: Negative for depression, anxiety, suicide ideation, homicidal ideation, and hallucinations, Allergy/Immunology: Negative for hives, rash, and allergies, Endocrine: Negative for neck swelling, polydipsia, polyuria, polyphagia, and marked weight changes, Hematologic/Lymphatic: Negative for swollen nodes, abnormal bleeding, and unusual bruising, 15:45 : Positive for urinary symptoms, burning with urination, difficulty urinating, 15:45 MS/extremity: Positive for erythema, pain, of the right leg and left leg, 15:45 Skin: Positive for ulceration, of the right leg and left leg, Exam: 15:45 Constitutional: This is a well developed, well nourished patient who is awake, alert, miguel and in no acute distress. Head/Face: Normocephalic, atraumatic. Eyes: Pupils equal round and reactive to light, extra-ocular motions intact. Lids and lashes normal. Conjunctiva and sclera are non-icteric and not injected. Cornea within normal limits. Periorbital areas with no swelling, redness, or edema. ENT: Nares patent. No nasal discharge, no septal abnormalities noted. Tympanic membranes are normal and external auditory canals are clear. Oropharynx with no redness, swelling, or masses, exudates, or evidence of obstruction, uvula midline. Mucous membranes moist. Neck: Trachea midline, no thyromegaly or masses palpated, and no cervical lymphadenopathy. Supple, full range of motion without nuchal rigidity, or vertebral point tenderness. No Meningismus. Chest/axilla: Normal chest wall appearance and motion. Nontender with no deformity. No lesions are appreciated. Cardiovascular: Regular rate and rhythm with a normal S1 and S2. No gallops, murmurs, or rubs. Normal PMI, no JVD. No pulse deficits. Respiratory: Lungs have equal breath sounds bilaterally, clear to auscultation and percussion. No rales, rhonchi or wheezes noted. No increased work of breathing, no retractions or nasal flaring. Abdomen/GI: Soft, non-tender, with normal bowel sounds. No distension or tympany. No guarding or rebound. No evidence of tenderness throughout. Back: No spinal tenderness. No costovertebral tenderness. Full range of motion. Neuro: Awake and alert, GCS 15, oriented to person, place, time, and situation. Cranial nerves II-XII grossly intact. Motor strength 5/5 in all extremities. Sensory grossly intact. Cerebellar exam normal. Normal gait. Psych: Awake, alert, with orientation to person, place and time. Behavior, mood, and affect are within normal limits. 15:45 Musculoskeletal/extremity: ROM: intact in all extremities, Pulses: noted to be 4+ in the bilateral radial, brachial, femoral, popliteal, posterior tibial and and dorsalis pedis arteries., Compartment Syndrome exam of affected extremity: is normal. DVT Exam: negative Homans' sign noted on exam, no appreciated bluish discoloration, pain, swelling, tenderness, erythema, increased warmth, that is moderate, of the right leg and left leg, 15:45 Skin: cellulitis, that is mild, that is moderate, on the right leg and left leg, induration, that is mild is noted, located on the right leg and left leg, 15:56 ECG was reviewed by the Attending Physician. miguel Vital Signs: 12:19 BP 158 / 61; Pulse 75; Resp 17; Temp 98.5; Pulse Ox 98% on R/A; Weight 117.93 kg; dd2 Height 5 ft. 6 in. ; Pain 7/10; 12:45 BP 162 / 64; Pulse 75; Resp 17; Pulse Ox 98% on R/A; dd2 13:30 BP 148 / 58; Pulse 72; Resp 18; Pulse Ox 99% on R/A; dd2 14:00 BP 155 / 76; Pulse 77; Resp 18; Pulse Ox 98% on R/A; dd2 14:30 BP 155 / 47; Pulse 76; Resp 17; Pulse Ox 97% on R/A; dd2 15:00 BP 150 / 57; Pulse 79; Resp 18; Pulse Ox 98% on 2 lpm NC; dd2 15:30 BP 138 / 55; Pulse 68; Resp 16; Pulse Ox 97% on 2 lpm NC; dd2 16:30 BP 142 / 61; Pulse 73; Resp 17; Pulse Ox 99% on R/A; dd2 17:30 BP 156 / 68; Pulse 75; Resp 16; Temp 98.4(A); Pulse Ox 98% on R/A; dd2 12:19 Body Mass Index 41.96 (117.93 kg, 167.64 cm) dd2 12:19 Pain Scale: Adult dd2 [place] Coma Score: 12:27 Eye Response: spontaneous(4). Motor Response: obeys commands(6). Verbal Response: dd2 oriented(5). Total: 15. MDM: 12:15 Medical Screening Exam initiated miguel 15:48 Differential diagnosis: contusion, abrasion, tendonitis. Differential Diagnosis altered miguel mental status, sepsis, flu. Differential Diagnosis: CVA, electrolyte abnormality, hypoglycemia, intracranial bleed, pneumonia, sepsis, UTI, volume depletion. Data reviewed: vital signs, nurses notes, lab test result(s), EKG, radiologic studies, plain films. Consideration of Admission/Observation Patient was admitted/placed on observation. Escalation of care including admission/observation considered. I considered the following discharge prescriptions or medication management in the emergency department Medications were administered in the Emergency Department. See MAR. Independent interpretation of the following test(s) in the Emergency Department EKG: See my EKG interpretation above. Test considered but Not performed: Ultrasound no arterial doppler. Historians other than the Patient: EMS: ems well informed. Care significantly affected by the following chronic conditions: Diabetes, Congestive Heart Failure, Obesity, Chronic Kidney Disease, oa, venous stasis. 11/06 12:22 Order name: Basic Metabolic Panel; Complete Time: 14:10 [facility] 11/06 12:22 Order name: CBC with Diff; Complete Time: 14:10 [facility] 11/06 12:22 Order name: LFT's; Complete Time: 14:10 [facility] 11/06 12:22 Order name: Magnesium; Complete Time: 14:10 [facility] 11/06 12:22 Order name: NT PRO-BNP; Complete Time: 14:10 [facility] 11/06 12:22 Order name: PT-INR; Complete Time: 14:10 [facility] 11/06 12:22 Order name: Troponin HS; Complete Time: 14:10 [facility] 11/06 12:22 Order name: Lipase; Complete Time: 14:10 [facility] 11/06 12:22 Order name: UA Rfx Sean Cult if indicated; Complete Time: 15:27 [facility] 11/06 14:17 Order name: Blood Culture Adult (2) [facility] 11/06 14:17 Order name: Lactate w/ 2H reflex if indic.; Complete Time: 15:31 [facility] 11/06 14:17 Order name: Type And Screen [facility] 11/06 17:22 Order name: Basic Metabolic Panel EDID 05/06 17:22 Order name: Basic Metabolic Panel EDMS 05/06 17:22 Order name: Basic Metabolic Panel EDMS 05/06 17:22 Order name: Basic Metabolic Panel EDMS 05/06 17:22 Order name: Basic Metabolic Panel EDMS 05/06 17:22 Order name: Basic Metabolic Panel EDMS 05/06 17:22 Order name: Basic Metabolic Panel EDMS 05/06 17:22 Order name: Basic Metabolic Panel EDMS 05/06 17:22 Order name: CBC with Automated Diff EDMS 05/06 17:22 Order name: CBC with Automated Diff EDMS 05/06 17:22 Order name: CBC with Automated Diff EDMS 05/06 17:22 Order name: CBC with Automated Diff EDMS 05/06 17:22 Order name: CBC with Automated Diff EDMS 05/06 17:22 Order name: CBC with Automated Diff EDMS 05/06 17:22 Order name: CBC with Automated Diff EDMS 05/06 17:22 Order name: CBC with Automated Diff EDMS 05/06 17:22 Order name: Magnesium EDMS 05/06 17:22 Order name: Magnesium EDMS 05/06 17:22 Order name: Magnesium EDMS 05/06 17:22 Order name: Magnesium EDMS 05/06 17:22 Order name: Magnesium EDMS 05/06 17:22 Order name: Magnesium EDMS 05/06 17:22 Order name: Magnesium EDMS 05/06 17:22 Order name: Magnesium EDMS 05/06 17:22 Order name: Phosphorus EDMS 05/06 17:22 Order name: Phosphorus EDMS 05/06 17:22 Order name: Phosphorus EDMS 05/06 17:22 Order name: Phosphorus EDMS 05/06 17:22 Order name: Phosphorus EDMS 05/06 17:22 Order name: Phosphorus EDMS 05/06 17:22 Order name: Phosphorus EDMS 05/06 17:22 Order name: Phosphorus EDMS 05/06 17:22 Order name: Troponin High Sensitivity EDMS 05/06 17:22 Order name: Troponin High Sensitivity EDMS 05/06 17:22 Order name: Troponin High Sensitivity EDMS 05/06 17:26 Order name: Urinalysis W/Microscopic EDMS 05/06 12:22 Order name: XRAY Chest (1 view); Complete Time: 14:10 miguel 05/06 12:22 Order name: CT Head Brain wo Cont; Complete Time: 15:27 [facility] 11/06 12:37 Order name: US Extremity Venous W Compression Jeevan; Complete Time: 14:10 [facility] 11/06 12:22 Order name: Cardiac monitoring; Complete Time: 14:06 [facility] 11/06 12:22 Order name: EKG - Nurse/Tech; Complete Time: 14:06 [facility] 11/06 12:22 Order name: IV Saline Lock; Complete Time: 13:12 [facility] 11/06 12:22 Order name: Labs collected and sent; Complete Time: 13:12 [facility] 11/06 12:22 Order name: O2 Per Protocol; Complete Time: 13:12 [facility] 11/06 12:22 Order name: O2 Sat Monitoring; Complete Time: 13:12 [facility] EC:56 Rate is 78 beats/min. Rhythm is regular. QRS [place] is Normal. AR interval is normal. QRS miguel interval is normal. QT interval is prolonged at 513 msec. No Q waves. T waves are Normal. No ST changes noted. Clinical impression: NSR w/ Non-specific ST/T Changes and No evidence of ischemia. Interpreted by me. Reviewed by me. Administered Medications: 14:05 Drug: NS 0.9% IV 500 ml 500 ml IV at 100 ml/hr once; to be given as a bolus over 30 dd2 minutes Volume: 500 ml; Route: IV; Rate: 100 ml/hr; Site: right forearm; 14:35 Follow up: IV Status: Completed infusion dd2 14:17 CANCELLED (Duplicate Order): [id number] mg IVP once; dilute with 10 mL 0.9% NaCl; [facility] give over 2 minutes 15:16 Drug: diphenhydrAMINE IVP 25 mg IVP once Route: IVP; Site: right forearm; dd2 15:31 Follow up: Response: No adverse reaction dd2 15:16 Drug: Famotidine IVP 40 mg IVP once; dilute with 10 mL 0.9% NaCl; give over 2 minutes dd2 Route: IVP; Site: right forearm; 15:31 Follow up: Response: No adverse reaction dd2 15:17 Drug: mupirocin Ointment 2 % 1 application Topical once Route: Topical; Site: affected dd2 area; 15:47 Follow up: Response: No adverse reaction dd2 18:25 Drug: Ativan IVP 1 mg IVP once Route: IVP; Site: right upper arm; dd2 Disposition Summary: 11/06/24 15:54 Hospitalization Ordered Notes: Hospitalization Status: Inpatient Admission miguel Provider: Boris Razo cha Location: Telemetry/MedSurg (Inpatient) miguel Condition: Fair miguel Problem: an acute exacerbation miguel Symptoms: have worsened miguel Bed/Room Type: Standard miguel Room Assignment: 410(11/06/24 17:31) bd Diagnosis - Weakness miguel - MCFP (current) use of anticoagulants miguel - Unspecified kidney failure miguel - Venous insufficiency (chronic) (peripheral) miguel - Cellulitis and acute lymphangitis of other parts of limb - bilateral lower miguel extremities - Anemia, unspecified miguel Forms: - Medication Reconciliation Form migule - SBAR form miguel - Leadership Thank You Letter miguel Signatures: Dispatcher [employer] EDMS Dara Reed Corey, MD MD cha DAVIS, DIANA RN RN dd2 Corrections: (The following items were deleted from the chart) 12:22 12:22 Chest Single View+RAD.RAD.BRZ ordered. EDMS EDMS 12:23 12:23 Head Brain Wo Cont+CT.RAD.BRZ ordered. EDMS EDMS 12:38 12:38 Extrem Venous W Compression Jeevan+US.RAD.BRZ ordered. EDMS EDMS 14:17 14:17 Famotidine IVP 20 mg IVP once; dilute with 10 mL 0.9% NaCl; give over 2 minutes miguel ordered. miguel 14:17 14:17 BLOOD CULTURE*+BA.LAB.BRZ ordered. EDMS EDMS 14:17 14:17 LACTATE+C.LAB.BRZ ordered. EDMS EDMS 14:17 14:17 TYPE AND SCREEN+BB.LAB.BRZ ordered. EDMS EDMS 17:31 15:54 miguel bd
--- NOTE | 2024-11-06 15:55 | ER ---
Nurse's Notes [facility] Name: Stephany Bran Age: 78 yrs Sex: Female : 1945 Arrival Date: 11/06/2024 Time: 12:08 Bed 18 Private MD: Diagnosis: Weakness;nursing home (current) use of anticoagulants;Unspecified kidney failure;Venous insufficiency (chronic) (peripheral);Cellulitis and acute lymphangitis of other parts of limb-bilateral lower extremities;Anemia, unspecified Presentation: 11/06 12:19 Chief complaint: EMS states: TONED OUT TO PT'S HOME BY CAREGIVER FOR AMS, UPON ARRIVING dd2 EMS REPORTS PT WAS AAOX3, C/O PAIN IN THE RLE. BLE LYMPHEDEMA WRAPS. Coronavirus screen: At this time, the client does not indicate any symptoms associated with coronavirus-19. Ebola Screen: No symptoms or risks identified at this time. Initial Sepsis Screen: Does the patient meet any 2 criteria? No. Patient's initial sepsis screen is negative. Does the patient have a suspected source of infection? No. Patient's initial sepsis screen is negative. Risk Assessment: Do you want to hurt yourself or someone else? Patient reports no desire to harm self or others. Onset of symptoms is unknown. 12:19 Method Of Arrival: EMS: [facility] dd2 12:19 Acuity: NGA 3 dd2 Triage Assessment: 12:23 General: Appears in no apparent distress. uncomfortable, Behavior is calm, cooperative, dd2 appropriate for age. Pain: Complains of pain in right leg Pain does not radiate. Pain currently is 8 out of 10 on a pain scale. EENT: No deficits noted. No signs and/or symptoms were reported regarding the EENT system. Neuro: Level of Consciousness is awake, alert, obeys commands, Oriented to person, place, time, Appropriate for age. Cardiovascular: Denies chest pain, Patient's skin is warm and dry. BLE EDEMA. Respiratory: No deficits noted. Airway is patent Respiratory effort is even, unlabored, Respiratory pattern is regular, symmetrical. GI: No deficits noted. Abdomen is non-distended, obese, Abd is soft and non tender X 4 quads. Derm: BLE EDEMA NOTED WITH REDNESS. PT HAS ACE LYMPHEDEMA WRAPS IN PLACE Reports pain that is 8 out of 10 on a pain scale. Musculoskeletal: Circulation, motion, and sensation intact. Range of motion: limited in BLE Swelling present in right leg and left leg. Historical: - Allergies: 12:23 Ciprofloxacin; dd2 12:23 Demerol; dd2 12:23 Erythromycin; dd2 12:23 Losartan; dd2 12:23 MACROLIDES; dd2 12:23 Metformin HCl; dd2 12:23 metronidazole; dd2 12:23 Myacin family; dd2 12:23 PENICILLINS; dd2 12:23 pentoxifylline; dd2 - PMHx: 12:23 Atrial fibrillation; diabetes mellitus; Glaucoma; Hypothyroidism; neuropathy; dd2 osteoarthritis; Osteoporosis; PVD (hystertectomy); LYMPHEDEMA (hystertectomy); - PSHx: 12:23 hystertectomy (or); dd2 - Immunization history:: Adult Immunizations unknown. - Infectious Disease History:: Denies. - Social history:: Smoking status: Patient denies any tobacco usage or history of. Screenin:27 [facility] [place] ED Fall Risk Assessment (Adult) History of falling in the last 3 months, dd2 including since admission No falls in past 3 months (0 pts) Confusion or Disorientation No (0 pts) Intoxicated or Sedated No (0 pts) Impaired Gait Yes (1 pt) Mobility Assist Device Used Yes (1 pt) Altered Elimination Yes (1 pt) Score/Fall Risk Level 3 or more points = High Risk Oriented to surroundings, Maintained a safe environment, Educated pt \T\ family on fall prevention, incl call for assistance when getting out of bed, Assessed \T\ reinforced patient's understanding of fall precautions, Provided non-skid footwear, Hourly rounding (assess needs \T\ fall precautionary measures) done, Used ambulatory aids as needed (educated on \T\ assisted with), Offered frequent toileting (1:1 observation), Remained with patient while ambulating. Abuse screen: Denies threats or abuse. Denies injuries from another. Nutritional screening: No deficits noted. Tuberculosis screening: No symptoms or risk factors identified. Assessment: 12:27 Reassessment: SEE TRIAGE ASSESSMENT FOR FULL ASSESSMENT. dd2 Vital Signs: 12:19 BP 158 / 61; Pulse 75; Resp 17; Temp 98.5; Pulse Ox 98% on R/A; Weight 117.93 kg; dd2 Height 5 ft. 6 in. ; Pain 7/10; 12:45 BP 162 / 64; Pulse 75; Resp 17; Pulse Ox 98% on R/A; dd2 13:30 BP 148 / 58; Pulse 72; Resp 18; Pulse Ox 99% on R/A; dd2 14:00 BP 155 / 76; Pulse 77; Resp 18; Pulse Ox 98% on R/A; dd2 14:30 BP 155 / 47; Pulse 76; Resp 17; Pulse Ox 97% on R/A; dd2 15:00 BP 150 / 57; Pulse 79; Resp 18; Pulse Ox 98% on 2 lpm NC; dd2 15:30 BP 138 / 55; Pulse 68; Resp 16; Pulse Ox 97% on 2 lpm NC; dd2 16:30 BP 142 / 61; Pulse 73; Resp 17; Pulse Ox 99% on R/A; dd2 17:30 BP 156 / 68; Pulse 75; Resp 16; Temp 98.4(A); Pulse Ox 98% on R/A; dd2 12:19 Body Mass Index 41.96 (117.93 kg, 167.64 cm) dd2 12:19 Pain Scale: Adult dd2 [place] Coma Score: 12:27 Eye Response: spontaneous(4). Motor Response: obeys commands(6). Verbal Response: dd2 oriented(5). Total: 15. ED Course: 12:13 Patient arrived in ED. dd2 12:15 Job Hoang MD is Attending Physician. [facility] 12:19 TRESA SEAMAN RN is Primary Nurse. dd2 12:23 Triage completed. dd2 12:23 Arm band placed on right wrist. dd2 12:27 Patient has correct armband on for positive identification. Bed in low position. Call dd2 light in reach. Side rails up X2. Client placed on continuous cardiac and pulse oximetry monitoring. NIBP monitoring applied. Door closed. Noise minimized. Warm blanket given. Pillow given. Verbal reassurance given. 12:27 Patient maintains SpO2 saturation greater than 95% on room air. dd2 13:01 XRAY Chest (1 view) In Process Unspecified. EDMS 13:12 Initial lab(s) drawn, by me, sent to lab. Inserted saline lock: 22 gauge in right dd2 forearm, using aseptic technique. Blood collected. Flushed with 10 mL NS. 13:21 US Extremity Venous W Compression Ace In Process Unspecified. EDMS 13:43 CT Head Brain wo Cont In Process Unspecified. EDMS 15:19 UA Rfx Sean Cult if indicated Sent. dd2 15:21 Provided Education on: LABS, MEDICCATIONS. dd2 15:21 No provider procedures requiring assistance completed. dd2 15:52 Boris Razo MD is Hospitalizing Provider. [facility] 20:23 Patient admitted, IV remains in place. dd2 Administered Medications: 14:05 Drug: NS 0.9% IV 500 ml 500 ml IV at 100 ml/hr once; to be given as a bolus over 30 dd2 minutes Volume: 500 ml; Route: IV; Rate: 100 ml/hr; Site: right forearm; 14:35 Follow up: IV Status: Completed infusion dd2 14:17 CANCELLED (Duplicate Order): [id number] mg IVP once; dilute with 10 mL 0.9% NaCl; miguel give over 2 minutes 15:16 Drug: diphenhydrAMINE IVP 25 mg IVP once Route: IVP; Site: right forearm; dd2 15:31 Follow up: Response: No adverse reaction dd2 15:16 Drug: Famotidine IVP 40 mg IVP once; dilute with 10 mL 0.9% NaCl; give over 2 minutes dd2 Route: IVP; Site: right forearm; 15:31 Follow up: Response: No adverse reaction dd2 15:17 Drug: mupirocin Ointment 2 % 1 application Topical once Route: Topical; Site: affected dd2 area; 15:47 Follow up: Response: No adverse reaction dd2 18:25 Drug: Ativan IVP 1 mg IVP once Route: IVP; Site: right upper arm; dd2 Medication: 12:27 VIS not applicable for this client. dd2 Outcome: 15:54 Decision to Hospitalize by Provider. miguel 20:23 Admitted to Med/surg accompanied by tech, via stretcher, with chart, dd2 20:23 Condition: stable 20:23 Instructed on the need for admit, Demonstrated understanding of instructions, 20:24 Patient left the ED. dd2 Signatures: Dispatcher [employer] Job Gutiérrez MD MD cha DAVIS, DIANA, RN RN dd2
--- NOTE | 2024-11-06 17:31 | P.HP ---
Certification for Inpatient Patient admitted to: Inpatient With expected LOS: >2 Midnights Patient will require the following post-hospital care: None Practitioner: I am a practitioner with admitting privileges, knowledge of patient current condition, hospital course, and medical plan of care. Services: Services provided to patient in accordance with Admission requirements found in Title 42 Section 412.3 of the Code of Federal Regulations Patient History Date of Service: 11/06/24 Reason for admission: Acute metabolic encephalopathy 2/2 UTI History of Present Illness: Stephany Bran is a 78 year old female with PMHx Atrial fibrillation; diabetes mellitus; Glaucoma; Hypothyroidism; neuropathy, osteoarthritis; Osteoporosis, chronic wounds who presents to the ED with worsening AMS that started yesterday. 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 Her last urine grew Enterococcus Faecalis 10/06/24. She is unable to answer questions at this time. Laboratory evaluation significant for H&H 02/25, left shift neutrophils 76,BUN/creatinine 26/1.6, GFR 33, BNP 2679, UA suggestive of infectious process. Chest x-ray reports "Mildly progressive central interstitial prominence, may reflect central congestion or CHF." CT head reports "No evidence of acute intracranial abnormality. " Bilateral lower extremity venous ultrasound reports "There is no deep vein or superficial vein thrombosis." Stephany will be admitted to hospitalist service for further evaluation and treatment of acute metabolic encephalopathy secondary to urinary tract infection. Allergies ciprofloxacin Allergy (Verified 08/31/19 21:43) Hallucinations erythromycin base Allergy (Verified 08/31/19 21:43) Itching/Hives/Rash losartan Allergy (Verified 08/31/19 21:43) Hallucinations Macrolide Antibiotics Allergy (Verified 08/31/19 21:43) Itching/Hives/Rash metronidazole [From Flagyl] Allergy (Verified 08/31/19 21:43) Itching/Hives/Rash Penicillins Allergy (Verified 08/31/19 21:43) Itching/Hives/Rash pentoxifylline Allergy (Verified 08/31/19 21:43) Itching/Hives/Rash codeine Adverse Reaction (Intermediate, Verified 08/31/19 21:43) Hallucinations Home Medications: Furosemide 40 mg PO BID 08/31/19 Insulin Aspart [Novolog Flexpen] 2 units SQ TIDWM 08/31/19 Levothyroxine Sodium 25 mcg PO DAILY 08/31/19 Pantoprazole [Protonix Tab*] 40 mg PO DAILY 08/31/19 Pramipexole Di-HCl [Pramipexole ER] 0.75 mg PO BEDTIME 08/31/19 traMADol HCL [Ultram*] 50 mg PO BID 08/31/19 Pravastatin [Pravachol*] 80 mg PO BEDTIME 05/08/21 Apixaban [Eliquis] 5 mg PO BID #60 tablet 06/02/21 Benzonatate [Tessalon Perle*] 100 mg PO TID PRN cap 06/02/21 Metoprolol Tartrate [Lopressor*] 25 mg PO BID 6AM 6PM tab 06/02/21 Baclofen 10 mg PO TID 10/06/24 Clopidogrel Bisulfate [Plavix] 75 mg PO DAILY 10/06/24 Pregabalin 50 mg PO TID 10/06/24 Spironolactone 25 mg PO DAILY 10/06/24 predniSONE [Prednisone*] 10 mg PO DAILY 10/06/24 Escitalopram Oxalate 10 mg PO DAILY 10/07/24 Insulin Degludec [Tresiba Flextouch U-100] 32 unit SQ DAILY 10/07/24 Nystatin Powder [Mycostatin (Powder)*] 15 gm TOP BID 10/07/24 Trazodone HCl 100 mg PO BEDTIME 10/07/24 glipiZIDE [Glipizide] 2.5 mg PO DAILY 10/07/24 Cefpodoxime Proxetil 100 mg PO BID 5 Days #10 tab 10/11/24 - Past Medical/Surgical History Diabetic: Yes -: Pneumonia -: DM -: HTN -: HLD -: Hypothyroidism -: Neuropathy -: Glaucoma -: Atrial Fibrillation -: hypotension -: EYE SX -: CERVICAL SPINE SX -: HYSTERECTOMY -: APPENDECTOMY -: left FOOT SX - Family History Mother -: Cancer Notes: stomach and intestinal cancer Father -: Heart disease - Social History Smoking Status: Never smoker Alcohol use: No CD- Drugs: No Caffeine use: Yes Review of Systems is unable to be obtained Physical Examination - Physical Exam General: Delirious HEENT: Atraumatic, Normocephalic Neck: Supple, 2+ carotid pulse no bruit Respiratory: Clear to auscultation bilaterally, Normal air movement Cardiovascular: Normal pulses, Regular rate/rhythm, Normal S1 S2 Capillary refill: <2 Seconds Gastrointestinal: Normal bowel sounds, Soft and benign Musculoskeletal: No clubbing Integumentary: No rashes Neurological: Other (delirious) - Studies Laboratory Data (last 24 hrs) 11/06/24 11/06/24 11/06/24 12:38 12:38 12:38 WBC 9.40 Hgb 8.6 L Hct 25.9 L Plt Count 200 PT 19.6 H INR 1.77 Sodium 141 Potassium 4.1 BUN 26 H Creatinine 1.60 H Glucose 132 H Magnesium 1.9 Total Bilirubin 0.4 AST 14 L ALT 15 Alkaline Phosphatase 41 L Lipase 22 Assessment and Plan - Plan Assessment and plan Acute metabolic Encephalopathy secondary to UTI Hallucinations - Rocephin, she has multiple antibiotic allergies - Gentle IV fluids - Follow urine and blood culture - Supportive care Acute on chronic kidney disease -Consult nephrology - Gentle IV fluids Anemia - Monitor H&H daily - Transfuse as needed - H/H at baseline Multiple wounds Neuropathy -Consult wound care -consult Dr. Hernadez - with no DVT noted DM with hyperglycemia -Accucheck with SSI HTN HLD Hypothyroidism Glaucoma Afib Hypotension -continue home medication DVT PPx heparin for now Full code LOS 2 to 3 days Discharge Plan: Residential Plan to discharge in: 72 Hours - Advance Directives Does patient have a Living Will: No Does patient have a Durable POA for Healthcare: No
[2024-11-06] MEDS ORDERED: GLUCAGON 1 MG/VIAL IV PRN (17:40)
[2024-11-06] MEDS ORDERED: D50W 25 GM/50 ML SYRINGE IV PRN (17:40)
[2024-11-06] MEDS ORDERED: LORazepam 2 MG/ML VIAL ONE (18:20)
[2024-11-06] MEDS: INSULIN REGULAR (HUMAN) 100 UNIT/ML SQ SCH (21:00)
[2024-11-06] MEDS: NA CHLORIDE 0.9% 1,000 ML IV SCH (21:51)
[2024-11-06] MEDS: CEFTRIAXONE 1,000 MG in NA CHLORIDE 0.9% 50 ML IVPB SCH (21:51)
[2024-11-07] MEDS: HEPARIN 5000 UNIT/ML 1 ML VIAL SQ SCH (01:20)
[2024-11-07] MEDS: ACETAMINOPHEN 325 MG TABLET PO PRN (01:48)
[2024-11-07 04:30] LABS: Absolute Eosinophils 0.3 K/uL (0-0.5); Absolute Lymphocytes (CBC) 0.9 K/uL (0.7-4.9); Absolute Monocytes 0.7 K/uL (0.1-1.3); Absolute Neutrophil 6.1 K/uL (1.8-8.0); Basophils % 0.3 % (0-1.3); Eosinophils % 3.3 % (0-4.4); Hematocrit 24.1 % (36.0-45.0); Hemoglobin 7.9 g/dL (12.0-15.0); Lymphocytes % 11.3 % (15.3-44.8); MCH 24.6 pg (27.0-35.0); MCHC 32.9 g/dL (32.0-36.0); MCV 74.7 fL (80-100); MPV 8.5 fL (7.6-11.3); Monocytes % 9.2 % (3.3-12.3); Neutrophils % 75.9 % (41.7-73.7); Nucleated Red Blood Cells % 0.1 % (0-0); Platelets 169 thou/uL (152-406); RBC Red Blood Cell Count 3.22 M/uL (3.86-4.86); Red Cell Distribution Width 19.1 % (12.1-15.2)
[2024-11-07 04:45] LABS: Anion Gap 8.1 mEq/L (5.0-15.0); Magnesium 1.9 mg/dL (1.6-2.4); Phosphorus 4.8 mg/dL (2.5-4.9); Potassium 4.1 mEq/L (3.5-5.1)
--- NOTE | 2024-11-07 06:49 | P.PN ---
Date of Service: 11/07/24 Subjective Awake and conversing well Cognitively improved Unable to send urine for culture, Will remain inpatient for one more day of IV antibiotics Discussed case with Dr. Wood This afternoon, started to cough and complain of SOB while on nasal cannula, CXR, EKG ROS 10 point ROS as noted above, otherwise negative Physical Exam General: Awake and oriented, NAD HEENT: Atraumatic, Normocephalic Neck: Supple, 2+ carotid pulse no bruit Respiratory: Clear BBS, Normal air movement, on 2 LNC Cardiovascular: RRR, Normal S1 S2 Capillary refill: <2 Seconds Gastrointestinal: Normal bowel sounds, Soft and benign on palpation Musculoskeletal: No clubbing Integumentary: No rashes Neurological: normal speech, normal tone Vitals Reviewed Problem list Acute metabolic Encephalopathy secondary to UTI Hallucinations Acute on chronic kidney disease Anemia Multiple wounds Neuropathy DM with hyperglycemia HTN HLD Hypothyroidism Glaucoma Afib Hypotension Assessment and Plan Acute metabolic Encephalopathy secondary to UTI Hallucinations - Rocephin, she has multiple antibiotic allergies - Gentle IV fluids - blood culture- NGTD -Urine culture, unable to send -Supportive care Acute on chronic kidney disease -Consult nephrology - Gentle IV fluids Anemia - Monitor H&H daily - Transfuse as needed - H/H 7.03/27 Multiple wounds Neuropathy -Consult wound care -consult Dr. Hernadez - with no DVT noted DM with hyperglycemia -Accucheck with SSI HTN HLD Hypothyroidism Glaucoma Afib Hypotension -continue home medication DVT PPx heparin for now Full code LOS 2 to 3 days Discharge Plan: [facility] Plan to discharge in: 72 Hours
[2024-11-07] MEDS: HYDRALAZINE HCL 20 MG/ML VIAL IV PRN (16:58)
--- NOTE | 2024-11-07 18:35 | RAD REPORT ---
EXAM: Chest Single View HISTORY: 78 years Female sob COMPARISON: 11/06/2024 FINDINGS: LUNGS/PLEURA: Diffuse increased prominence of the pulmonary interstitium. CARDIAC/MEDIASTINUM: Moderate cardiomegaly. UPPER ABDOMEN: No significant abnormality. BONES: No acute abnormality. LINES/TUBES/OTHER: N/A IMPRESSION: Increased pulmonary edema.
[2024-11-07] MEDS ORDERED: D10W 125 ML IV PRN (18:41)
[2024-11-07] MEDS: FAMOTIDINE 20 MG/2 ML VIAL IV SCH (18:43)
[2024-11-07] MEDS: METOPROLOL TAR 25 MG TAB PO SCH (18:46)
[2024-11-07 19:13] LABS: Troponin High Sensitivity 47.9 pg/mL (<58.9)
[2024-11-07] MEDS ORDERED: FUROSEMIDE 40 MG TABLET PO SCH (21:00)
[2024-11-07] MEDS ORDERED: HOME MED 1 EA UNK (Pravastatin [Pravachol*] 40 MG/TAB Tab) PO SCH (21:00)
[2024-11-07] MEDS: PRAMIPEXOLE DI HCL 0.75 MG PO SCH (21:00)
[2024-11-07] MEDS ORDERED: HOME MED 1 EA UNK (Trazodone Hcl [Trazodone Hcl] 100 MG Tablet) PO SCH (21:00)
[2024-11-07 21:22] LABS: Influenza A Ag Negative; Influenza B Ag Negative; SARS-CoV-2 Antigen Rapid Res Negative (Negative)
[2024-11-07] MEDS: ONDANSETRON 4 MG/2 ML VIAL IV ONE (21:42)
[2024-11-07] MEDS: FUROSEMIDE 40 MG/4 ML VIAL IV ONE (21:42)
[2024-11-07] MEDS: ATORVASTATIN 10 MG TAB PO SCH (21:43)
[2024-11-07] MEDS: PREGABALIN 50 MG CAP PO SCH (21:43)
[2024-11-07] MEDS: TRAZODONE 50 MG TABLET PO SCH (21:44)
[2024-11-07] MEDS: CLINDAMYCIN IV SCH (23:37)
[2024-11-07] MEDS: NS IV SCH (23:37)
[2024-11-08] MEDS ORDERED: CLINDAMYCIN 300MG D5W 300 MG/50 ML BAG IV SCH
[2024-11-08] MEDS: hydrOXYzine HCL 25 MG TAB PO PRN (00:19)
[2024-11-08] MEDS: TRAMADOL HCL 50 MG TAB PO PRN (00:19)
[2024-11-08 04:34] LABS: Absolute Eosinophils 0.1 K/uL (0-0.5); Absolute Lymphocytes (CBC) 0.6 K/uL (0.7-4.9); Absolute Monocytes 0.5 K/uL (0.1-1.3); Absolute Neutrophil 5.6 K/uL (1.8-8.0); Basophils % 0.3 % (0-1.3); Eosinophils % 1.6 % (0-4.4); Hematocrit 23.3 % (36.0-45.0); Hemoglobin 7.7 g/dL (12.0-15.0); Lymphocytes % 9.2 % (15.3-44.8); MCH 24.6 pg (27.0-35.0); MCHC 32.9 g/dL (32.0-36.0); MCV 74.6 fL (80-100); MPV 7.9 fL (7.6-11.3); Monocytes % 7.2 % (3.3-12.3); Neutrophils % 81.7 % (41.7-73.7); Nucleated Red Blood Cells % 0.2 % (0-0); Platelets 188 thou/uL (152-406); RBC Red Blood Cell Count 3.13 M/uL (3.86-4.86); Red Cell Distribution Width 19.2 % (12.1-15.2)
[2024-11-08 05:15] LABS: Magnesium 2.1 mg/dL (1.6-2.4); Phosphorus 4.3 mg/dL (2.5-4.9)
[2024-11-08] MEDS: LEVOTHYROXINE SOD 0.025 MG TAB PO SCH (06:36)
[2024-11-08] MEDS ORDERED: PANTOPRAZOLE 40MG TABLET PO SCH (09:00)
[2024-11-08 09:14] LABS: Albumin 2.6 g/dL (3.4-5.0)
[2024-11-08] MEDS ORDERED: FLUOCINONIDE 0.05% CREAM 30GM TOP PRN (09:30)
[2024-11-08] MEDS: ESCITALOPRAM OXALATE 10 MG TABLET PO SCH (09:42)
[2024-11-08] MEDS: SPIRONOLACTONE 25 MG TABLET PO SCH (09:42)
[2024-11-08] MEDS: APIXABAN 5 MG TABLET PO SCH (09:43)
[2024-11-08] MEDS: predniSONE 10 MG TAB PO SCH (09:43)
[2024-11-08] MEDS: CLOPIDOGREL 75 MG TABLET PO SCH (09:43)
[2024-11-08] MEDS: FUROSEMIDE 40 MG TABLET PO SCH (09:43)
[2024-11-08] MEDS: COLLAGENASE 30 GM OINTMENT TOP SCH (09:44)
--- NOTE | 2024-11-08 11:39 | EKG ---
Test Date: 2024-11-08 Test Time: 02:44:13 Salt Lifter: A MEASUREMENT RESULTS: Intervals: Rate: 69 FL: 186 QRSD: 88 QT: 482 QTc: 516 [place]: P: 29 FL: 186 QRS: -14 T: 45 INTERPRETIVE STATEMENTS: Sinus rhythm with marked sinus arrhythmia Low voltage QRS RSR' or QR pattern in V1 suggests right ventricular conduction delay Cannot rule out Anteroseptal infarct, age undetermined Prolonged QT Abnormal ECG Compared to ECG 11/07/2024 16:58:39 Low QRS voltage now present RSR' in V1 or V2 now present Prolonged QT interval now present Fusion complex(es) no longer present Myocardial infarct finding still present Electronically Signed On 11-08-24 11:38:06 CDT by Sukhdev Koenig
--- NOTE | 2024-11-08 11:41 | EKG ---
Test Date: 2024-11-07 Test Time: 16:58:39 Machine Operator Farmworker: KENNETH MEASUREMENT RESULTS: Intervals: Rate: 97 OR: 198 QRSD: 88 QT: 374 QTc: 474 Groom: P: 78 OR: 198 QRS: 122 T: 79 INTERPRETIVE STATEMENTS: Sinus rhythm with marked sinus arrhythmia with fusion complexes Anterolateral infarct, age undetermined Abnormal ECG Compared to ECG 11/06/2024 13:53:00 Fusion complex(es) now present Prolonged QT interval no longer present Myocardial infarct finding still present Electronically Signed On 11-08-24 11:38:54 CDT by Sukhdev Koenig
--- NOTE | 2024-11-08 11:48 | EKG ---
Test Date: 2024-11-06 Test Time: 13:53:00 And Drying Supervisor Cooking Casing: BRITTANY MEASUREMENT RESULTS: Intervals: Rate: 78 OR: 174 QRSD: 100 QT: 450 QTc: 513 Agness: P: 94 OR: 174 QRS: -13 T: 67 INTERPRETIVE STATEMENTS: Sinus rhythm with marked sinus arrhythmia Septal infarct, age undetermined Prolonged QT Abnormal ECG Compared to ECG 10/06/2024 10:12:08 Myocardial infarct finding now present Prolonged QT interval now present Junctional rhythm no longer present Ventricular premature complex(es) no longer present AV dissociation no longer present Electronically Signed On 11-08-24 11:43:37 CDT by Sukhdev Koenig
--- NOTE | 2024-11-08 13:25 | P.PN ---
Date of Service: 11/08/24 Subjective Sleeping comfortably, nausea and coughing is better CXR showing pulmonary edema, responded well to lasix ROS 10 point ROS as noted above, otherwise negative Physical Exam General: Awake, alert, and oriented3, NAD Neck: Supple, 2+ carotid pulse no bruit Respiratory: Clear BBS, Normal air movement, on 2 LNC Cardiovascular: NSR, Normal S1 S2 Capillary refill: <2 Seconds Gastrointestinal: Soft and benign on palpation Musculoskeletal: No clubbing Integumentary: No rashes Neurological: normal speech, normal tone Vitals Reviewed Problem list Acute metabolic Encephalopathy secondary to UTI Hallucinations Acute on chronic kidney disease Anemia Multiple wounds Neuropathy DM with hyperglycemia HTN HLD Hypothyroidism Glaucoma Afib Hypotension Assessment and Plan Acute metabolic Encephalopathy secondary to UTI Hallucinations - continue rocephin, clindamycin - Gentle IV fluids - blood culture- NGTD - Urine culture, unable to send per lab stipulations - Supportive care -ID consulted pulmonary edema -Lasix IV and restarted Lasix PO Acute on chronic kidney disease -Consult nephrology - Gentle IV fluids Anemia - Monitor H&H daily - Transfuse as needed - H/H 7.01/23 Multiple wounds Neuropathy -Consult wound care -consult Dr. Ortega - with no DVT noted -Wound culture growing 2+ gram-negative rods, 3+ beta-hemolytic strep group B DM with hyperglycemia -Accucheck with SSI HTN HLD Hypothyroidism Glaucoma Afib Hypotension -continue home medication DVT PPx heparin for now Full code LOS 2 to 3 days Discharge Plan: [facility] Plan to discharge in: 72 Hours
--- NOTE | 2024-11-08 13:59 | CON ---
Date of Consultation: 11/07/2024 Reason For Consultation: Bilateral lower extremity wounds. History Of Present Illness: The patient is a 78-year-old female who was admitted with acute metaboli c encephalopathy and UTI. She also is noted to have multiple wounds on her lower extremity that Dr. Galicia is managing. She, however, decided not to follow up with Wound Care as she has home health at this time. She has had previous evaluation and stent placed in her lower extremity for arterial dis ease. She denies any sore throat, runny nose, cough, headaches, or dizziness. No chest pain. No fe layton or chills. Review of Systems: Otherwise unremarkable. Past Medical History: Significant for pneumonia, diabetes, hypertension, hyperlipidemia, peripheral vascular disease, hypothyroidism, neuropathy, glaucoma, AFib. Past Surgical History: Eye surgery, cervical spine surgery, left foot surgery, appendectomy, and hys terectomy. Allergies: REVIEWED AND INCLUDE CIPRO, ERYTHROMYCIN, LOSARTAN, MACROLIDE, METRONIDAZOLE, PENICILLIN, . Physical Examination: Vital Signs: Stable. She is afebrile. General: She is awake and alert. Head and Neck: No masses. Chest: Clear. Heart: S1, S2. Abdomen: Soft. Extremities: Diminished dorsalis pedis and posterior tibial pulses. There are multiple small arteri al ulcers on both lower extremities, more on the left. On the right, there is a necrotic area of dry eschar on the dorsum of the first toe and second toe. The ulcers on the left leg have some fibrin p resent in it and there is dry and scaly skin on both legs. Laboratory Data: White count is 6.9, there is a left shift. INR is 1.77. Chemistry reviewed. Lact ic acid was less than 0.8, which was . Venous Dopplers were negative. She had an arterial Doppler done last month, which was reviewed and shows moderate disease on the right leg with monopha sic flow. Assessment: Peripheral vascular disease with multiple wounds, lower extremities. Recommendations: At this time, we will use Santyl for the wounds with fibrin present in it and the e schar on the right foot and Lidex for the dry skin. Then, the patient can follow up as an outpatient with Dr. Hernadez and she will probably need to follow up with her Vascular provider as well. There is no need for any acute surgical debridement at this time, although the right foot will probably ne ed debridement in the near future. /MODL Voice ID: [id number] Report ID: [id number]
[2024-11-08 23:18] LABS: Ferritin 41.5 ng/mL (8-252)
[2024-11-09 04:54] LABS: Absolute Eosinophils 0.3 K/uL (0-0.5); Absolute Lymphocytes (CBC) 0.7 K/uL (0.7-4.9); Absolute Monocytes 0.7 K/uL (0.1-1.3); Absolute Neutrophil 3.9 K/uL (1.8-8.0); Basophils % 0.6 % (0-1.3); Eosinophils % 5.8 % (0-4.4); Hematocrit 22.9 % (36.0-45.0); Hemoglobin 7.5 g/dL (12.0-15.0); Lymphocytes % 12.3 % (15.3-44.8); MCH 24.3 pg (27.0-35.0); MCHC 32.8 g/dL (32.0-36.0); MCV 74.2 fL (80-100); MPV 8.2 fL (7.6-11.3); Monocytes % 11.6 % (3.3-12.3); Neutrophils % 69.7 % (41.7-73.7); Platelets 175 thou/uL (152-406); RBC Red Blood Cell Count 3.08 M/uL (3.86-4.86); Red Cell Distribution Width 19.2 % (12.1-15.2)
[2024-11-09 05:12] LABS: Anion Gap 7.7 mEq/L (5.0-15.0); Magnesium 2.2 mg/dL (1.6-2.4); Phosphorus 3.4 mg/dL (2.5-4.9); Potassium 3.7 mEq/L (3.5-5.1)
[2024-11-09] MEDS: POTASSIUM 25 MEQ EFFERV TAB PO ONE (09:37)
[2024-11-09] MEDS: ACETIC ACID 0.25% IRRIG IRR ONE (09:39)
--- NOTE | 2024-11-09 11:14 | PN ---
Date of Progress Note: 11/09/2024 Subjective: The patient is awake, alert. No complaints. Her culture grew back pseudomonas. Laboratory Data: Reviewed. White count is normal. There is no left shift. Sensitivities reviewed. ID has been consulted to make recommendations. Objective: Vital Signs: Stable, afebrile. Wounds: The patient has besides the pseudomonas also 3+ beta-hemolytic strep. There is mild erythem a surrounding the wounds, which has slightly improved. No significant change in the remainder of the exam. Assessment: Multiple wounds, lower extremity with pseudomonas infection and may be hemolytic strep. Plan: We will await ID recommendations based on sensitivities. Appears that a chloroquine and penic illin would be appropriate. We will change the dressing to acetic acid 0.25% to decrease the coloniz ation of the pseudomonas with Santyl. The patient can be cleared when seen by Infectious Disease and appropriate antibiotics are prescribed for the patient. The patient can follow up with Dr. Hernadez [facility]. DOMINIQUE/CANDIS Voice ID: [id number] Report ID: [id number]
[2024-11-09] MEDS ORDERED: HEPARIN 500 UNIT/5 ML SYR IV PRN (13:13)
--- NOTE | 2024-11-09 13:23 | P.PN ---
Date of Service: 11/09/24 Subjective Awake feeling better, more alert and conversing well no new complaints ROS 10 point ROS as noted above, otherwise negative Physical Exam General: AAO x3, NAD Neck: Supple, 2+ carotid pulse no bruit Respiratory: Nonlabored breathing, on 2 LNC Cardiovascular: RRR, Normal S1 S2 Capillary refill: <2 Seconds Gastrointestinal: Normal active bowel sounds, nontender abdomen Musculoskeletal: No clubbing Integumentary: No rashes Neurological: normal speech, normal tone Vitals Reviewed Problem list Acute metabolic Encephalopathy secondary to UTI Hallucinations Acute on chronic kidney disease Anemia Multiple wounds Neuropathy DM with hyperglycemia HTN HLD Hypothyroidism Glaucoma Afib Hypotension Assessment and Plan Acute metabolic Encephalopathy secondary to UTI Hallucinations - Stopped rocephin and clindamycin, started merrem - Gentle IV fluids - blood culture- NGTD - Urine culture, unable to send per lab stipulations - Supportive care - ID consulted- recommend Merrem for 2weeks, Midline ordered pulmonary edema -Lasix IV and restarted Lasix PO Acute on chronic kidney disease -Consult nephrology - Gentle IV fluids Anemia - Monitor H&H daily - Transfuse as needed - H/H 7.5/22.9 -restarted home eliquis and plavix, now Hgb downtrending -NM GI Bleed study, resulted pending Multiple wounds Neuropathy -Consult wound care -consult Dr. Ortega - with no DVT noted -Wound culture growing Pseudomonas Aeruginosa DM with hyperglycemia -Accucheck with SSI HTN HLD Hypothyroidism Glaucoma Afib Hypotension -continue home medication DVT PPx heparin for now Full code LOS 2 to 3 days Discharge Plan: [facility] Plan to discharge in: 72 Hours
[2024-11-09] MEDS: Mupirocin NASAL 2 APPL/1 GM TUBE NAS SCH (21:42)
--- NOTE | 2024-11-09 23:10 | P.PN ---
Date of Service: 11/09/24 Unable to see patient today due to pt going for GI imaging per nursing staff. will f/u with pt tomorrow Dr Wood aware
[2024-11-10] MEDS: Meropenem 1,000 MG in NA CHLORIDE 0.9% 100 ML IV SCH (00:24)
[2024-11-10 06:32] LABS: Absolute Eosinophils 0.5 K/uL (0-0.5); Absolute Lymphocytes (CBC) 0.7 K/uL (0.7-4.9); Absolute Monocytes 0.8 K/uL (0.1-1.3); Absolute Neutrophil 4.1 K/uL (1.8-8.0); Basophils % 0.5 % (0-1.3); Eosinophils % 7.7 % (0-4.4); Hematocrit 24.9 % (36.0-45.0); Hemoglobin 8.2 g/dL (12.0-15.0); Lymphocytes % 12.2 % (15.3-44.8); MCH 24.2 pg (27.0-35.0); MCHC 32.9 g/dL (32.0-36.0); MCV 73.6 fL (80-100); MPV 7.8 fL (7.6-11.3); Monocytes % 12.5 % (3.3-12.3); Neutrophils % 67.1 % (41.7-73.7); Nucleated Red Blood Cells % 0.1 % (0-0); Platelets 212 thou/uL (152-406); RBC Red Blood Cell Count 3.39 M/uL (3.86-4.86); Red Cell Distribution Width 18.8 % (12.1-15.2)
[2024-11-10 06:51] LABS: Anion Gap 8.5 mEq/L (5.0-15.0); Magnesium 2.1 mg/dL (1.6-2.4); Phosphorus 3.8 mg/dL (2.5-4.9); Potassium 3.5 mEq/L (3.5-5.1)
[2024-11-10] MEDS: POTASSIUM CL SA 10 MEQ TAB PO ONE (08:31)
[2024-11-10] MEDS: FERROUS SULFATE 325 MG TAB PO SCH (08:31)
[2024-11-10] MEDS: INSULIN REGULAR (HUMAN) 100 UNIT/ML SQ SCH (08:32)
--- NOTE | 2024-11-10 11:29 | PN ---
Date of Progress Note: 11/10/2024 Subjective: The patient is awake, initially refusing midline for IV antibiotics. Prolonged discussion occurred with the patient and her family members regarding the importance of having a midline, so the patient can receive antibiotics for 2 weeks as recommended by Infectious Disease. With regard to the leg, she has no complaints. Objective: Vital Signs: Stable. She is afebrile. Extremities: Examination of the lower extremity reveals wounds to have dried up. Skin looks much better. There is no redness. The right great toe wound may need debriding as an outpatient. Laboratory Data: Reviewed, essentially unremarkable. Assessment: UTI and bilateral lower extremity wounds with Pseudomonas infection. Recommendations: Await ID consult. IV antibiotics as ordered. Wound care as ordered. Follow up [facility] with Dr. Hernadez after discharge and all questions were answered to the patient and family. The patient has agreed for a midline now. DOMINIQUE/MODL Voice ID: [id number] Report ID: [id number] GEETHA
[2024-11-10] MEDS ORDERED: Meropenem 1,000 MG in NA CHLORIDE 0.9% 100 ML IV SCH (17:41)
--- NOTE | 2024-11-10 19:04 | PN ---
Subjective: The patient sitting in bed, family by the bedside. Denies any headache, nausea, vomitin g, chest pain, abdominal pain, constipation, or diarrhea. Objective: Vital Signs: Temperature 98, pulse 64, respirations 14, blood pressure 151/68. Lungs: Basal crackles. Heart: S1, S2, regular. Abdomen: Soft, nontender. Bowel sounds present. Extremities: Trace edema. Laboratory Data: WBC 6.1, hemoglobin 8.2, platelets are 212. BUN of 26, creatinine 1.6, glucose 160 . Left leg wound cultures Pseudomonas aeruginosa. The patient is currently on meropenem as the martínez ent is allergic to quinolones. Assessment And Plan: 1. Bilateral lower extremity wounds with Pseudomonas infection, diabetic foot ulcer and diabetes keeley itus. 2. Diabetic neuropathy. 3. The patient currently on meropenem, continue for 6 weeks. 4. Urinary tract infection. 5. Hematuria. 6. CKD stage 3. 7. Altered mental status, improved. 8. Continue supportive care. We will monitor signs of infection. No further recommendations. NF/MODL Voice ID: [id number] Report ID: [id number]
--- NOTE | 2024-11-10 21:46 | P.PN ---
Date of Service: 11/10/24 Subjective Agreed for midline conversing well no new complaints ROS 10 point ROS as noted above, otherwise negative Physical Exam General: AAO x3, NAD, afebrile Neck: Supple, 2+ carotid pulse no bruit Respiratory: Clear BBS, on 2 LNC Cardiovascular: NSR, Normal S1 S2 Capillary refill: <2 Seconds Gastrointestinal: Normal active bowel sounds, nontender abdomen Musculoskeletal: No clubbing Integumentary: No rashes Neurological: normal speech, normal tone Vitals Reviewed Problem list Acute metabolic Encephalopathy secondary to UTI Hallucinations Acute on chronic kidney disease Anemia Multiple wounds Neuropathy DM with hyperglycemia HTN HLD Hypothyroidism Glaucoma Afib Hypotension Assessment and Plan Acute metabolic Encephalopathy secondary to UTI Hallucinations - Stopped rocephin and clindamycin, started merrem - Gentle IV fluids - blood culture- NGTD - Urine culture, unable to send per lab stipulations - Supportive care - ID consulted- recommend Merrem for 2weeks, Midline ordered pulmonary edema -Lasix IV and restarted Lasix PO Acute on chronic kidney disease -Consult nephrology - Gentle IV fluids Anemia - Monitor H&H daily - Transfuse as needed - H/H 8.08/27 -restarted home eliquis and plavix, now Hgb downtrending -NM GI Bleed study, resulted pending Multiple wounds Neuropathy -Consult wound care -consult Dr. Ortega - with no DVT noted -Wound culture growing Pseudomonas Aeruginosa DM with hyperglycemia -Accucheck with SSI HTN HLD Hypothyroidism Glaucoma Afib Hypotension -continue home medication DVT PPx heparin for now Full code LOS 2 to 3 days Discharge Plan: Residential Plan to discharge in: 72 Hours
[2024-11-11 02:08] VITALS: O2SAT 100
[2024-11-11 06:24] LABS: Absolute Eosinophils 0.5 K/uL (0-0.5); Absolute Lymphocytes (CBC) 0.9 K/uL (0.7-4.9); Absolute Monocytes 0.7 K/uL (0.1-1.3); Absolute Neutrophil 3.9 K/uL (1.8-8.0); Basophils % 0.7 % (0-1.3); Eosinophils % 7.9 % (0-4.4); Hematocrit 25.5 % (36.0-45.0); Hemoglobin 8.5 g/dL (12.0-15.0); Lymphocytes % 14.5 % (15.3-44.8); MCH 24.7 pg (27.0-35.0); MCHC 33.4 g/dL (32.0-36.0); MPV 7.8 fL (7.6-11.3); Monocytes % 12.2 % (3.3-12.3); Neutrophils % 64.7 % (41.7-73.7); Nucleated Red Blood Cells % 0.1 % (0-0); Platelets 234 thou/uL (152-406); RBC Red Blood Cell Count 3.44 M/uL (3.86-4.86); Red Cell Distribution Width 19.1 % (12.1-15.2)
[2024-11-11 06:48] LABS: Anion Gap 7.7 mEq/L (5.0-15.0); Magnesium 2.2 mg/dL (1.6-2.4); Potassium 3.7 mEq/L (3.5-5.1)
--- NOTE | 2024-11-11 12:45 | P.PN ---
Date of Service: 11/11/24 Subjective Awake, conversing well, writing questions about IV antibiotics Midline placed and tolerated no new complaints ROS 10 point ROS as noted above, otherwise negative Physical Exam General: AAO x3, NAD, afebrile Neck: Supple, 2+ carotid pulse no bruit Respiratory: Clear BBS, on 2 LNC Cardiovascular: NSR, Normal S1 S2 Capillary refill: <2 Seconds Gastrointestinal: Normal active bowel sounds, nontender abdomen Musculoskeletal: No clubbing Integumentary: No rashes Neurological: normal speech, normal tone Vitals Reviewed Problem list Acute metabolic Encephalopathy secondary to UTI Hallucinations Acute on chronic kidney disease Anemia Multiple wounds Neuropathy DM with hyperglycemia HTN HLD Hypothyroidism Glaucoma Afib Hypotension Assessment and Plan Acute metabolic Encephalopathy secondary to UTI Hallucinations - Continue merrem - Gentle IV fluids - blood culture- NGTD - Urine culture, lab cultured after specimen was two days in the refrigerator, growing mixed karen likely inaccurate - Supportive care - ID consulted- recommend Merrem for 2weeks, Midline placed pulmonary edema -Lasix IV and restarted Lasix PO Acute on chronic kidney disease -Consult nephrology - Gentle IV fluids Anemia - Monitor H&H daily - Transfuse as needed - H/H stable -restarted home eliquis and plavix, hemoglobin stabilized -NM GI Bleed study, results pending Multiple wounds Neuropathy -Consult wound care -consult Dr. Ortega - with no DVT noted -Dr. Wood following Wound culture growing Pseudomonas Aeruginosa, 2nd growth of streptococcus Agalactiae Grp B likely colonized per Dr. Wood DM with hyperglycemia -Accucheck with SSI HTN HLD Hypothyroidism Glaucoma Afib Hypotension -continue home medication DVT PPx heparin for now Full code LOS 2 to 3 days Discharge Plan: [facility] Plan to discharge in: 72 Hours
[2024-11-11] MEDS: Meropenem 1000 MG/VIAL IV ONE (16:16)
[2024-11-11] MEDS: NA CHLORIDE 0.9% 100 ML ONE (16:19)
[2024-11-11 17:14] VITALS: BMI 41.9
[2024-11-12] MEDS: Meropenem 1000 MG/VIAL IV ONE (00:08)
[2024-11-12] MEDS: NA CHLORIDE 0.9% 100 ML ONE (00:09)
[2024-11-12 05:35] LABS: Absolute Eosinophils 0.5 K/uL (0-0.5); Absolute Lymphocytes (CBC) 1.2 K/uL (0.7-4.9); Absolute Monocytes 0.8 K/uL (0.1-1.3); Absolute Neutrophil 4.2 K/uL (1.8-8.0); Basophils % 0.6 % (0-1.3); Eosinophils % 7.8 % (0-4.4); Hematocrit 26.2 % (36.0-45.0); Hemoglobin 8.7 g/dL (12.0-15.0); Lymphocytes % 17.5 % (15.3-44.8); MCH 24.7 pg (27.0-35.0); MCHC 33.3 g/dL (32.0-36.0); MCV 74.1 fL (80-100); MPV 7.9 fL (7.6-11.3); Monocytes % 12.2 % (3.3-12.3); Neutrophils % 61.9 % (41.7-73.7); Platelets 204 thou/uL (152-406); RBC Red Blood Cell Count 3.54 M/uL (3.86-4.86); Red Cell Distribution Width 18.9 % (12.1-15.2)
[2024-11-12 05:48] LABS: Anion Gap 6.5 mEq/L (5.0-15.0); Magnesium 2.3 mg/dL (1.6-2.4); Phosphorus 4.4 mg/dL (2.5-4.9); Potassium 3.5 mEq/L (3.5-5.1)
[2024-11-12] MEDS: POTASSIUM 25 MEQ EFFERV TAB PO ONE (06:15)
--- NOTE | 2024-11-12 08:27 | RAD REPORT ---
EXAMINATION: NM GI Blood Loss Imaging CLINICAL INDICATION: Female, 78 years old. [facility] MAIN decreased H/H, no evidence of bleeding TECHNIQUE: Dynamic AP planar flow images, followed by AP planar images of the abdomen and pelvis, for a total of 60 minutes, were obtained following intravenous administration of radiotracer. RADIOPHARMACEUTICAL: 25.3 mCi Technetium 99m tagged RBCs. COMPARISON: No prior exams. FINDINGS: Normal flow pattern along the abdominal aorta and its branches. Normal tracer accumulation within the liver and spleen initially, and within the kidneys. Mild tracer accumulation in the bladder towards the end of the exam. No focal tracer extravasation throughout the course of the small and large bowel to suggest active GI bleeding. IMPRESSION: Normal abdominal scintigraphy, with no evidence of active GI bleeding.
[2024-11-12] MEDS ORDERED: HYDRALAZINE HCL 20 MG/ML VIAL IV PRN (09:24)
--- NOTE | 2024-11-12 14:55 | P.PN ---
Date of Service: 11/12/24 Subjective No acute events overnight Curious about setting up home antibiotics ROS 10 point ROS as noted above, otherwise negative Physical Exam General: AAO x3, NAD, afebrile Neck: Supple, 2+ carotid pulse no bruit Respiratory: Clear BBS, on 2 LNC Cardiovascular: NSR, Normal S1 S2 Capillary refill: <2 Seconds Gastrointestinal: Normal active bowel sounds, nontender abdomen Musculoskeletal: No clubbing Integumentary: No rashes Neurological: normal speech, normal tone Vitals Reviewed Problem list Acute metabolic Encephalopathy secondary to UTI Hallucinations Acute on chronic kidney disease Anemia Multiple wounds Neuropathy DM with hyperglycemia HTN HLD Hypothyroidism Glaucoma Afib Hypotension Plan Acute metabolic Encephalopathy secondary to UTI Hallucinations - Continue merrem - Gentle IV fluids - blood culture- NGTD - Urine culture, lab cultured after specimen was two days in the refrigerator, growing mixed karen likely inaccurate - Supportive care - ID consulted- recommend Merrem for 2weeks, Midline placed pulmonary edema -Lasix IV and restarted Lasix PO Acute on chronic kidney disease -Consult nephrology - Gentle IV fluids Anemia - Monitor H&H daily - Transfuse as needed - H/H stable -restarted home eliquis and plavix, hemoglobin stabilized -NM GI Bleed study-no active bleeding or other acute findings Multiple wounds Neuropathy -Consult wound care -consult Dr. Ortega - with no DVT noted -Dr. Wood following Wound culture growing Pseudomonas Aeruginosa, 2nd growth of streptococcus Agalactiae Grp B likely colonized per Dr. Wood DM with hyperglycemia -Accucheck with SSI HTN HLD Hypothyroidism Glaucoma Afib Hypotension -continue home medication DVT PPx continue Eliquis Full code LOS 2 to 3 days Discharge Plan: Detention Plan to discharge in: 72 Hours
--- NOTE | 2024-11-12 22:03 | P.PN ---
Date of Service: 11/12/24 Subjective: The patient sitting in bed, family by the bedside. Denies any headache, nausea, vomiting, chest pain, abdominal pain, constipation, or diarrhea. Objective: Temp Pulse Resp BP Pulse Ox 98.9 F 63 17 156/80 H 99 11/12/24 16:00 11/12/24 17:40 11/12/24 16:00 11/12/24 17:40 11/12/24 16:00 general: NAD, afebrile, not in distress Lungs: Basal crackles. Heart: S1, S2, regular. Abdomen: Soft, nontender. Bowel sounds present. Extremities: Trace edema. , bilateral lower extremity wounds neuro: aox3 Laboratory Data: WBC 6.8, hemoglobin 8.7, platelets are 204. BUN of 31, creatinine 1.6, glucose 300.. Left leg wound cultures Pseudomonas aeruginosa and streptococcus agalactiae group B. Assessment And Plan: 1. Bilateral lower extremity wounds with Pseudomonas infection, diabetic foot ulcer and diabetes mellitus. 2. Diabetic neuropathy. 4. Urinary tract infection. 5. Hematuria. 6. CKD stage 3. 7. Altered mental status, improved. Left leg wound cultures growing Pseudomonas aeruginosa and streptococcus agalactiae group B (likely colonized). patient currently on meropenem, continue for 6 weeks. tentative stop date december 22 continue wound and supportive care monitor wbc and fever trend case discussed and in agreement with Dr Wood
[2024-11-13 05:45] LABS: Absolute Eosinophils 0.5 K/uL (0-0.5); Absolute Lymphocytes (CBC) 1.5 K/uL (0.7-4.9); Absolute Monocytes 0.9 K/uL (0.1-1.3); Basophils % 0.6 % (0-1.3); Eosinophils % 6.1 % (0-4.4); Hematocrit 27.2 % (36.0-45.0); Hemoglobin 8.7 g/dL (12.0-15.0); Lymphocytes % 18.8 % (15.3-44.8); MCH 23.9 pg (27.0-35.0); MCHC 31.9 g/dL (32.0-36.0); MPV 7.8 fL (7.6-11.3); Monocytes % 11.6 % (3.3-12.3); Neutrophils % 62.9 % (41.7-73.7); Nucleated Red Blood Cells % 0.1 % (0-0); Platelets 212 thou/uL (152-406); RBC Red Blood Cell Count 3.63 M/uL (3.86-4.86)
[2024-11-13 05:59] LABS: Anion Gap 7.7 mEq/L (5.0-15.0); Magnesium 2.2 mg/dL (1.6-2.4); Phosphorus 4.1 mg/dL (2.5-4.9); Potassium 3.7 mEq/L (3.5-5.1)
[2024-11-13 08:03] VITALS: TEMP 98.2
[2024-11-13] MEDS: FAMOTIDINE 20 MG TAB PO SCH (09:37)
[2024-11-13] MEDS: POTASSIUM CL SA 10 MEQ TAB PO ONE (09:38)
--- NOTE | 2024-11-13 14:00 | P.DS ---
Admission Date: 11/06/24 Discharge Date: 11/13/24 Disposition: DC HOME/HOME HEALTH CARE Discharge Condition: GOOD Reason for Admission: Acute metabolic encephalopathy 2/2 UTI Brief History of Present Illness: Stephany Bran is a 78 year old female with PMHx Atrial fibrillation; diabetes mellitus; Glaucoma; Hypothyroidism; neuropathy, osteoarthritis; Osteoporosis, chronic wounds who presents to the ED with worsening AMS that started yesterday. 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 Her last urine grew Enterococcus Faecalis 10/06/24. She is unable to answer questions at this time. Laboratory evaluation significant for H&H 02/25, left shift neutrophils 76,BUN/creatinine 26/1.6, GFR 33, BNP 2679, UA suggestive of infectious process. Chest x-ray reports "Mildly progressive central interstitial prominence, may reflect central congestion or CHF." CT head reports "No evidence of acute intracranial abnormality. " Bilateral lower extremity venous ultrasound reports "There is no deep vein or superficial vein thrombosis." Stephany will be admitted to hospitalist service for further evaluation and treatment of acute metabolic encephalopathy secondary to urinary tract infection. Hospital Course: Problem list Acute metabolic Encephalopathy secondary to UTI Hallucinations Acute on chronic kidney disease Anemia Multiple wounds Neuropathy DM with hyperglycemia HTN HLD Hypothyroidism Glaucoma Afib Hypotension Patient was admitted to the hospital for acute metabolic encephalopathy, urinary tract infection, lower extremity wounds with pseudomonal infection. She was seen by infectious disease and general surgery, infectious disease recommended 2-week course of IV meropenem which has been arranged for. General surgery recommends further evaluation as outpatient with her primary surgeon Dr. Hernadez in the wound healing center. Home health has been set up, midline catheter is in place and patient will be discharged to finish her antibiotics as outpatient. Vital Signs/Physical Exam: Temp Pulse Resp BP Pulse Ox 98.2 F 65 18 145/49 H 97 11/13/24 12:00 11/13/24 12:00 11/13/24 12:00 11/13/24 12:11/13/24 12:00 General: Alert, In no apparent distress, Oriented x3 HEENT: Atraumatic, PERRLA Neck: Supple, JVD not distended Respiratory: Clear to auscultation bilaterally, Normal air movement Cardiovascular: Regular rate/rhythm, Normal S1 S2 Gastrointestinal: Normal bowel sounds Musculoskeletal: No tenderness Neurological: Normal speech, Normal affect Laboratory Data at Discharge: WBC 7.90 thou/uL (4.3-10.9) 11/13/24 05:35 Hgb 8.7 g/dL (12.0-15.0) L 11/13/24 05:35 Hct 27.2 % (36.0-45.0) L 11/13/24 05:35 Plt Count 212 thou/uL (152-406) 11/13/24 05:35 PT 19.6 SECONDS (10-13.0) H 11/06/24 12:38 INR 1.77 11/06/24 12:38 Sodium 139 mEq/L (136-145) 11/13/24 05:35 Potassium 3.7 mEq/L (3.5-5.1) 11/13/24 05:35 BUN 28 mg/dL (7-18) H 11/13/24 05:35 Creatinine 1.66 mg/dL (0.55-1.02) H 11/13/24 05:35 Glucose 189 mg/dL (74-106) H 11/13/24 05:35 Phosphorus 4.1 mg/dL (2.5-4.9) 11/13/24 05:35 Magnesium 2.2 mg/dL (1.6-2.4) 11/13/24 05:35 Total Bilirubin 0.4 mg/dL (0.2-1.0) 11/06/24 12:38 AST 14 U/L (15-37) L 11/06/24 12:38 ALT 15 U/L (13-56) 11/06/24 12:38 Alkaline Phosphatase 41 U/L (45-117) L 11/06/24 12:38 Lipase 22 U/L (13-75) 11/06/24 12:38 Home Medications: Furosemide 40 mg PO BID 08/31/19 Insulin Aspart [Novolog Flexpen] 12 units SQ SEECOM 08/31/19 Levothyroxine Sodium 25 mcg PO DAILY 08/31/19 Pantoprazole [Protonix Tab*] 40 mg PO DAILY 08/31/19 Pramipexole Di-HCl [Pramipexole ER] 0.75 mg PO BEDTIME 08/31/19 traMADol HCL [Ultram*] 50 mg PO BID PRN 08/31/19 Pravastatin [Pravachol*] 80 mg PO BEDTIME 05/08/21 Apixaban [Eliquis] 5 mg PO BID #60 tablet 06/02/21 Benzonatate [Tessalon Perle*] 100 mg PO TID PRN cap 06/02/21 Metoprolol Tartrate [Lopressor*] 25 mg PO BID 6AM 6PM tab 06/02/21 Baclofen 10 mg PO TID 10/06/24 Clopidogrel Bisulfate [Plavix] 75 mg PO DAILY 10/06/24 Pregabalin 50 mg PO TID 10/06/24 Spironolactone 25 mg PO DAILY 10/06/24 predniSONE [Prednisone*] 10 mg PO DAILY 10/06/24 Escitalopram Oxalate 10 mg PO DAILY 10/07/24 Insulin Degludec [Tresiba Flextouch U-100] 36 unit SQ DAILY 10/07/24 Nystatin Powder [Mycostatin (Powder)*] 15 gm TOP BID 10/07/24 Trazodone HCl 100 mg PO BEDTIME 10/07/24 glipiZIDE [Glipizide] 2.5 mg PO DAILY 10/07/24 Cefpodoxime Proxetil 100 mg PO BID 5 Days #10 tab 10/11/24 Physician Discharge Instructions: Patient was admitted to the hospital for acute metabolic encephalopathy, urinary tract infection, lower extremity wounds with pseudomonal infection. She was seen by infectious disease and general surgery, infectious disease recommended 2-week course of IV meropenem which has been arranged for. General surgery recommends further evaluation as outpatient with her primary surgeon Dr. Hernadez in the wound healing center. Home health has been set up, midline catheter is in place and patient will be discharged to finish her antibiotics as outpatient. Diet: Regular Activity: Fall precautions Followup: NONE,NONE [Primary Care Provider] - 1-2 Weeks Time spent managing pt's care (in minutes): 46
[2024-11-13 16:27] VITALS: BP 168/90
--- NOTE | 2024-11-13 20:47 | PN ---
Subjective: The patient being discharged today. Denies any other problems. Objective: Vital Signs: Reviewed. Lungs: Basal crackles. Heart: S1, S2. Regular. Abdomen: Soft, nontender. Bowel sounds present. Extremities: 1+ edema with erythematous changes noted. Laboratory Data: Reviewed. Assessment And Plan: The patient continued to improve clinically. Continue antibiotic total of 2 we eks. Monitor signs of infection with WBC and fever trends. Followup for wound care with the surgica l team. No further recommendations at this time. NF/MODL Voice ID: [id number] Report ID: [id number]
== END 2024-11-13 16:20 | disposition home health service (06) | DRG 689 ==
LOC: ER 12:08 → ERHOLD 17:14 → 4TH 17:54
PROVIDERS: ADMIT Hospitalist; ATTEND Internal Medicine
PROC: 02HV33Z Insertion of Infusion Device into Superior Vena Cava, Percutaneous Approach (ICD-10-PCS; principal; 2024-11-10)
DX: N39.0 Urinary tract infection, site not specified (principal); G93.41 Metabolic encephalopathy; L03.116 Cellulitis of left lower limb; Z68.41 Body mass index [BMI] 40.0-44.9, adult; L03.115 Cellulitis of right lower limb; J81.1 Chronic pulmonary edema; E66.9 Obesity, unspecified; E03.9 Hypothyroidism, unspecified; I48.91 Unspecified atrial fibrillation; I12.9 Hypertensive chronic kidney disease with stage 1 through stage 4 chronic kidney disease, or unspecified chronic kidney disease; N18.30 Chronic kidney disease, stage 3 unspecified; E11.22 Type 2 diabetes mellitus with diabetic chronic kidney disease; E11.65 Type 2 diabetes mellitus with hyperglycemia; E11.40 Type 2 diabetes mellitus with diabetic neuropathy, unspecified; E11.51 Type 2 diabetes mellitus with diabetic peripheral angiopathy without gangrene; E11.621 Type 2 diabetes mellitus with foot ulcer; L97.529 Non-pressure chronic ulcer of other part of left foot with unspecified severity; L97.519 Non-pressure chronic ulcer of other part of right foot with unspecified severity; D63.1 Anemia in chronic kidney disease; I95.9 Hypotension, unspecified; M19.90 Unspecified osteoarthritis, unspecified site; B96.5 Pseudomonas (aeruginosa) (mallei) (pseudomallei) as the cause of diseases classified elsewhere; B95.1 Streptococcus, group B, as the cause of diseases classified elsewhere; R31.9 Hematuria, unspecified; Z88.5 Allergy status to narcotic agent; Z88.0 Allergy status to penicillin; Z88.1 Allergy status to other antibiotic agents; Z88.8 Allergy status to other drugs, medicaments and biological substances; Z79.01 Long term (current) use of anticoagulants; Z90.710 Acquired absence of both cervix and uterus; Z79.82 Long term (current) use of aspirin; Z79.52 Long term (current) use of systemic steroids; Z79.02 Long term (current) use of antithrombotics/antiplatelets; Z79.899 Other long term (current) drug therapy; Z11.52 Encounter for screening for COVID-19
CPT/HCPCS: 36415; 70450; 71045; 78278; 80048; 80076; 81001; 82040; 82607; 82728; 82947; 83010; 83540; 83605; 83690; 83735; 83880; 84100; 84466; 84484; 85025; 85610; 86850; 86900; 86901; 87040; 87070; 87077; 87086; 87088; 87186; 87205; 87428; 93005; 93970; 97161; 97530; 99285; A9560; J0360; J0696; J1200; J1642; J1644; J1815; J1938; J2185; J2405; J3490; J3590; J7030; J7040; J7512

== ENCOUNTER 2024-11-21 11:59 | Emergency (ER) | payer OTHER ==
--- OUTSIDE RECORDS SUMMARY | 2024-11-21 12:58 | XMS REPORT | Continuity of Care Document ---
Author Name Unknown Address [address] [facility] [address] [place] [address] [facility] Address [address] [facility] [place] [address] Care Team Providers Care Cheese Tester Name Role Phone OCHOA ESCAMILLA Primary Care Physician Unav ailable [id number] Attending Clinician Unavailable DIRECTOR MONEY PENDING, DIRECTOR MONEY PENDING Attending Clinician Unavailable Ochoa Escamilla MD Attending Clinician +[phone] Brian Israel MD Attending Clinician [phone] JEROME SOARES Attending Clinician Unavailable Doctor Unassigned, Lacona Attending Clinician U navailable [place] CHICKEN CATCHER, Lou Attending Clinician UnavailKAMLESH Rogers Attending Clinician Unavailable SHARATH SENDIL K.HKeri Attending Clinician Unavaila justin Soares MD, Jerome Attending Clinician [phone] BRIAN ISRAEL Attending Clinician Unavailable BRIAN ISRAEL Attending Clinician Unavailable Elsi Christian MD Attending Clinician +[phone] Tacho LOBO, Nehal Attending Clinician +[phone] ELSI CHRISTIAN Attending Clinician Unavailable ELSI CHRISTIAN Attending Clinician Unavailable Sharath EPPS, Jamshid K.H. Attending Clinician +[phone] Lucian LOWE, Talia Stevens Attending Clinician Unavaila jutsin Gee PA-C, Emili Attending Clinician +[phone] PHILIPPE LARSEN Attending Clinician UnavailPHILIPPE Montalvo Attending Clinician UnavailPhilippe Montalvo MD Attending Clinician +[phone] JAYDEN MITCHELL Attending Clinician Unavailable XENIA LOMELI Attending Clinician Unavailable XENIA LOMELI Attending Clinician Unavailable Shahzad Wyatt MD Attending Clinician Abigail Ley RN Attending Clinician Unavailable SHAHZAD PRO Attending Clinician Unavailable Doctor Unassigned, Lacona Attending Clinician U navailable Lab, Ang - Db Attending Clinician Unavailable Sofia LOWE, Bridgette Stevens Attending Clinician Unavail able DANIELLA HAWK Attending Clinician Unavailab Daniella Kathleen MD Attending Clinician +[phone] Ivy EPPS, Wale Bhandari Attending Clinician +[phone] Nehal Mason Attending Clinician +[phone] STEPH NUR Attending Clinician Unavailable Steph Nur MD Attending Clinician [phone], Adc Lab Attending Clinician Unavailable Sharath EPPS, Jamshid K.H. Attending Clinician +[phone] DAVID LIMA Attending Clinician Unavailable DAVID LIMA Attending Clinician Unavailable Leo LOWE, Simba Shetty Attending Clinician UnavailMICHOACANO Moise Attending Clinician Unavailable MICHOACANO WILKES Attending Clinician Unavailable Michoacano Wilkes DO Attending Clinician +[phone] Harriet EPPS, Erick Attending Clinician +[phone] NEHAL TITUS Attending Clinician Unavailable José Miguel Bedolla MD Attending Clinician +[phone] Pranav [facility], Jina A Attending Clinician Unavail able ERICK LARIOS Attending Clinician Unavailable JOSÉ MIGUEL BEDOLLA Attending Clinician Unavailable Prince LOWE, Alda Avalos Attending Clinician Unavailab GERMÁN Mcdaniel Attending Clinician Unavailable Isac COMBS, Tootie Steen Attending Clinician +[phone] Germán Alvarenga DO Attending Clinician +[phone] Jason LOWE, Rodo Ann Attending Clinician Unavail able Ayah EPPS, Mary Attending Clinician +[phone] Dagmar Cooper MD Attending Clinician + [phone] ROEL HOANG Attending Clinician UnavailSAM Rodriguez Attending Clinician Unavailabl Ramírez Muñoz MD Attending Clinician [phone] Shane EPPS, Sam Delgado Attending Clinician [phone] Roel Yusuf Attending Clinician +[phone] MARYCARMEN ROJAS Attending Clinician Unavailable Marycarmen Fox Attending Clinician +[phone] MISA CEBALLOS A Attending Clinician Unava CONSTANCE Vigil Attending Clinician Unavailtorres Kelly [facility], Talia Stevnes Attending Clinician + [phone] Misa Ceballos DPM Attending Clinician + BLADIMIR FERRARO Attending Clinician Unavailable Patel Betancur MD Attending Clinician +[phone] Nayely Jarvis MD Attending Clinician +[phone] Bladimir Ferraro MD Attending Clinician [phone] Sushil Persaud MD Attending Clinician +[phone] Jovany Bronson DO Attending Clinician +[phone] aJson Mckinney MD Attending Clinician +[phone] Anene PIECE GOODS PACKER, Les Attending Clinician +[phone] GUSTAVO LES Attending Clinician Unavailable Romanyao DO Srinihollie Attending Clinician +[phone] Wilson UNIT SECY, Pavithra K Attending Clinician Unavail able Rosalee EPPS, Philippe L Attending Clinician [phone] GARY MCKAY Attending Clinician Linda Stone MD, Constance Attending Clinician +[phone] Gary Schwartz Attending Clinician +[phone] QUINN_R Attending Clinician Unavailable Armand Ball Attending Clinician [phone] APOLLO REESE Attending Clinician Unavailable Dylan EPPS, Randi Chiu Attending Clinician +[phone] Apollo Reese MD Attending Clinician +[phone] Clay Case MD Attending Clinician +[phone] CLAY CASE Attending Clinician Unavailable Simon Nixon PT, Arlet Attending Clinician Un available Manish Mckeon Rahil Attending Clinician Unavail able MONIQUE GALLO Attending Clinician Unavailab Nj Morgan APN Attending Clinician + [phone] Monique Gallo MD Attending Clinician + [phone] Natalio Vigil MD Attending Clinician +[phone] NATALIO VIGIL Attending Clinician Unavailable See Fish MD Attending Clinician +[phone] Guzman EPPS, Lilly Attending Clinician +[phone] ASYA WALSH Attending Clinician Unavailab CHUCHO Menendez Attending Clinician UnavailJacquelyn Mckeon RN Attending Clinician [phone] Bartolome Haley MD Attending Clinician +[phone] Sangita LOBO, Gavin Avalos Attending Clinician + [phone] CHUCHO DEL REAL JR Attending Clinician Unavaila ble [facility] Attending Clinician Unavailable Only, Adc Test Attending Clinician Unavailable Mindi HEARN, Lisa Ramos Attending Clinician +[phone] Ochoa Escamilla MD Attending Clinician , Adc Vascular Room 1 - Attending Clinician Un available Stephen EPPS, Jayden Attending Clinician +[phone] Dara Golden MD Attending Clinician [phone] Admitting Clinician Unavailable SHAHZAD PRO Admitting Clinician Unavailable STEPH NUR Admitting Clinician Unavailable GERMÁN ALVARENGA Admitting Clinician Unavailable Germán Alvarenga DO Admitting Clinician +[phone] JEROME SOARES Admitting Clinician Unavailable SAM MEREDITH Admitting Clinician UnavailSam Rodriguez MD Admitting Clinician +[phone] JAMSHID EARLY Admitting Clinician Unavaila BLADIMIR Allen Admitting Clinician Unavailable Bladimir Ferraro MD Admitting Clinician +[phone] ERICKSON_R Admitting Clinician Unavailable APOLLO REESE Admitting Clinician Unavailable Apollo Reese MD Admitting Clinician +[phone] Manish Mckeon Rahil Admitting Clinician Unavail able MONIQUE GALLO Admitting Clinician Unavailab Monique Stevens MD Admitting Clinician +[phone] LILLY HINDS Admitting Clinician Unavailable Lilly Hinds MD Admitting Clinician +[phone] Payers Payer Name Policy Type Policy Number Effective Date Expirati on Date Source MEDICARE PART A AND B [id number] 2011 00:00:00 [facility] [id number] [facility] [id number] MEDICARE PART A \\T\\ B [id number] 2011 00:00:00 [employer] [id number] 2011 00:00:00 [place]: [employer] [id number] 2011 00:00:00 [employer] [id number] 2011 00:00:00 Problems Condition Name Condition Details Condition Category Status Onset Date Resolution Date Last Treatment Date Treating Clinician Comments Source Open wound of left heel, initial encounter Open wound of left heel, initial encounter Disease Active 2023-07 0-28 00:00: 00 [facility] Acute pain of left knee Acute pain of left knee Disease Active 2023-07 0-01 00:00: 00 [facility] Lymphedema of both lower extremitie s Lymphedema of both lower extremitie s Disease Active 2023-07 0-01 00:00: 00 [facility] Acute pulmonary edema Acute pulmonary edema Disease Active 7-15 00:00: 00 [facility] Cardiomega ly Cardiomega ly Disease Active 7-15 00:00: 00 [facility] Ankle wound, right, sequela Ankle wound, right, sequela Disease Active 2022-07 2-04 00:00: 00 [facility] Obesity (BMI 30-39.9) Obesity (BMI 30-39.9) Disease Active 2022-07 0-16 00:00: 00 [facility] PAF (paroxysma l atrial fibrillati on) PAF (paroxysma l atrial fibrillati on) Disease Active 2022-07 0-11 00:00: 00 [facility] Acute on chronic diastolic congestive heart failure Acute on chronic diastolic congestive heart failure Disease Active 2022-07 0-10 00:00: 00 [facility] Peripheral arterial disease Peripheral arterial disease Disease Active 9-07 00:00: 00 [facility] Peripheral vascular disease Peripheral vascular disease Disease Active 9-07 00:00: 00 [facility] At risk for falls At risk for falls Disease Active 9-05 00:00: 00 [facility] Unspecifie d abnormalit ies of gait and mobility Unspecifie d abnormalit ies of gait and mobility Disease Active 9-05 00:00: 00 [facility] Controlled substance agreement signed Controlled substance agreement signed Disease Active 9-05 00:00: 00 [facility] Chronic diastolic congestive heart failure Chronic diastolic congestive heart failure Disease Active 8-21 00:00: 00 [facility] Pulmonary hypertensi on Pulmonary hypertensi on Disease Active 8-21 00:00: 00 [facility] Lethargy Lethargy Disease Active 8-20 00:00: 00 [facility] Troponin I above reference range Troponin I above reference range Disease Active 2021-07 2-30 00:00: 00 [facility] UTI (urinary tract infection) UTI (urinary tract infection) Disease Active 2021-07 2-26 00:00: 00 [facility] Acute on chronic diastolic heart failure Acute on chronic diastolic heart failure Disease Active 2021-07 2-25 00:00: 00 [facility] Elevated brain natriureti c peptide (BNP) level Elevated brain natriureti c peptide (BNP) level Disease Active 2021-07 2-25 00:00: 00 [facility] Elevated brain natriureti c peptide (BNP) level Elevated brain natriureti c peptide (BNP) level Disease Active 2021-07 2-25 00:00: 00 [facility] Vomiting Vomiting Disease Active 2021-07 2-24 00:00: 00 [facility] Morbid obesity Morbid obesity Disease Active 8- 00:00: 00 [facility] CHAD (obstructi ve sleep apnea) CHAD (obstructi ve sleep apnea) Disease Active 8- 00:00: 00 [facility] Sepsis Sepsis Disease Active 8- 00:00: 00 [facility] Hypertensi ve emergency Hypertensi ve emergency Disease Active 8-11 00:00: 00 [facility] Acute bilateral venous stasis dermatitis Acute bilateral venous stasis dermatitis Disease Active 8-05 00:00: 00 [facility] Pneumonia due to infectious organism Pneumonia due to infectious organism Disease Active 8-05 00:00: 00 [facility] Positive blood culture Positive blood culture Disease Active 8-05 00:00: 00 [facility] Acute respirator y failure with hypoxia Acute respirator y failure with hypoxia Disease Active 2022-0 8-05 00:00: 00 [facility] Bilateral pleural effusion Bilateral pleural effusion Disease Active 0 8-05 00:00: 00 [facility] Pneumonia due to infectious organism Pneumonia due to infectious organism Disease Active 8-05 00:00: 00 [facility] Acute diastolic heart failure Acute diastolic heart failure Disease Active 8-05 00:00: 00 [facility] Acute bilateral venous stasis dermatitis Acute bilateral venous stasis dermatitis Disease Active 8 00:00: 00 [facility] Acute renal insufficie ncy Acute renal insufficie ncy Disease Active 01-29 00:00: 00 [facility] Chronic constipati on Chronic constipati on Disease Active 01-29 00:00: 00 [facility] Diarrhea Diarrhea Disease Active 01-29 00:00: 00 [facility] Hypovolemi c shock Hypovolemi c shock Disease Active 01-29 00:00: 00 [facility] Edema of right lower leg Edema of right lower leg Disease Active 2-14 00:00: 00 [facility] Mixed hyperlipid emia Mixed Hyperlipid emia Problem Active 07-30 00:00: 00 [facility] Cellulitis of right lower leg Cellulitis of right lower leg Disease Active 07-14 00:00: 00 [facility] Chronic hypokalemi a Chronic Hypokalemi a Problem Active 2020-07 00:00: 00 [facility] Anemia Anemia Problem Active 2020-07 00:00: 00 [facility] Stasis dermatitis Stasis Dermatitis Problem Active 2020-07 00:00: 00 [facility] Lymphedema of lower extremity Lymphedema of Lower Extremity Problem Active 2020-07 00:00: 00 [facility] Cardiac arrhythmia Cardiac Arrhythmia Problem Active 2020-07 0 00:00: 00 [facility] Body mass index 30+ - obesity Body Mass Index 30+ - Obesity Problem Active 7-13 00:00: 00 [facility] VTE (venous thromboemb olism) VTE (venous thromboemb olism) Disease Active 01-10 00:00: 00 [facility] PAD (periphera l artery disease) PAD (periphera l artery disease) Disease Active 01-10 00:00: 00 [facility] Chronic deep vein thrombosis (DVT) of femoral vein of right lower extremity Chronic deep vein thrombosis (DVT) of femoral vein of right lower extremity Disease Active 01-10 00:00: 00 [facility] Class 3 severe obesity due to excess calories in adult, unspecifie d BMI, unspecifie d whether serious comorbidit y present Class 3 severe obesity due to excess calories in adult, unspecifie d BMI, unspecifie d whether serious comorbidit y present Disease Active 01-10 00:00: 00 [facility] Restless legs Restless Legs Problem Active 5-27 00:00: 00 [facility] Chronic upper back pain Chronic upper back pain Disease Active 4-29 00:00: 00 [facility] Chronic pain syndrome Chronic Pain Syndrome Problem Active 4-29 00:00: 00 [facility] Pruritus of skin Pruritus of Skin Problem Active 4-29 00:00: 00 [facility] Hypokalemi a Hypokalemi a Problem Active 4-08 00:00: 00 [facility] Carpal tunnel syndrome Carpal Tunnel Syndrome Problem Active 4-08 00:00: 00 [facility] Respirator y tract congestion and cough Respirator y Tract Congestion and Cough Problem Active 3-09 00:00: 00 [facility] Gastroesop hageal reflux disease Gastroesop hageal Reflux Disease Problem Active 2- 00:00: 00 [facility] Peripheral vascular disease Peripheral Vascular Disease Problem Active 114 00:00: 00 [facility] 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 Varicose Veins of the Leg with Ulcer and Eczema Problem Active 14 00:00: 00 [facility] Musculoske letal instabilit y Musculoske letal Instabilit y Problem Active 2019-07 00:00: 00 [facility] History of fracture History of Fracture Problem Active 2019-07 00:00: 00 [facility] History of fall History of Fall Problem Active 2019-07 00:00: 00 [facility] Difficulty walking Difficulty Walking Problem Active 2019-07 00:00: 00 [facility] Peripheral neuropathy due to type 2 diabetes mellitus Peripheral Neuropathy Due to Type 2 Diabetes Mellitus Problem Active 2019-07 0 00:00: 00 [facility] Cellulitis and abscess of right lower extremity Cellulitis and abscess of right lower extremity Disease Active 03-18 00:00: 00 [facility] Chronic kidney disease stage 3 Chronic Kidney Disease Stage 3 Problem Active 03-14 00:00: 00 [facility] Hypothyroi dism Hypothyroi dism Problem Active 03-13 00:00: 00 [facility] Diabetes mellitus Diabetes Mellitus Problem Active 03-13 00:00: 00 [facility] Iron deficiency anemia Iron Deficiency Anemia Problem Active 03-13 00:00: 00 [facility] Neuropathy Neuropathy Problem Active 03-13 00:00: 00 [facility] Glaucoma Glaucoma Problem Active 03-13 00:00: 00 [facility] Hypertensi ve disorder Hypertensi ve Disorder Problem Active 03-13 00:00: 00 [facility] Deep venous thrombosis Deep Venous Thrombosis Problem Active 03-13 00:00: 00 [facility] Lymphedema Lymphedema Problem Active 9- 00:00: 00 [facility] Cellulitis Cellulitis Problem Active 9 00:00: 00 [facility] Memory impairment Memory Impairment Problem Active 9- 00:00: 00 [facility] Secondary restless legs syndrome Secondary Restless Legs Syndrome Problem Active 03-13 00:00: 00 [facility] History of transient ischemic attack History of transient ischemic attack Disease Active 8-06 00:00: 00 [facility] Cellulitis of unspecifie d part of limb Cellulitis of unspecifie d part of limb Disease Active 108 00:00: 00 [facility] Allergic rhinitis, unspecifie d Allergic rhinitis, unspecifie d Disease Active 2018-07 00:00: 00 [facility] Chronic atrial fibrillati on, unspecifie d Chronic atrial fibrillati on, unspecifie d Disease Active 2018-07 00:00: 00 [facility] Gastroesop hageal reflux disease without esophagiti s Gastroesop hageal reflux disease without esophagiti s Disease Active 2018-07 00:00: 00 [facility] Iron deficiency anemia Iron deficiency anemia Disease Active 2018-07 00:00: 00 [facility] Localized edema Localized edema Disease Active 2018-07 00:00: 00 [facility] Age-relate d physical debility Age-relate d physical debility Disease Active 2018-07 00:00: 00 [facility] Lymphedema , not elsewhere classified Lymphedema , not elsewhere classified Disease Active 2018-07 00:00: 00 [facility] Chronic venous hypertensi on (idiopathi c) with inflammati on of bilateral lower extremity Chronic venous hypertensi on (idiopathi c) with inflammati on of bilateral lower extremity Disease Active 2018-07 00:00: 00 [facility] Bacteremia Bacteremia Disease Active 2018-07 00:00: 00 [facility] Chronic venous hypertensi on (idiopathi c) with inflammati on of bilateral lower extremity Chronic venous hypertensi on (idiopathi c) with inflammati on of bilateral lower extremity Disease Active 2018-07 00:00: 00 [facility] Fluid overload, unspecifie d Fluid overload, unspecifie d Disease Active 2018-07 00:00: 00 [facility] intermodal dispatcher (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 dispatcher (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 Disease Active 2018-07 00:00: 00 [facility] Cellulitis of right leg Cellulitis of right leg Disease Active 2018-07 0 00:00: 00 [facility] Excessive daytime sleepiness Excessive daytime sleepiness Disease Active 07-05 00:00: 00 [facility] Displaced bimalleola r fracture Displaced bimalleola r fracture Disease Active 2016-07 00:00: 00 [facility] Fracture of calcaneus Fracture of calcaneus Disease Active 2016-07 00:00: 00 [facility] Controlled type 2 diabetes mellitus without complicati on, with long-term current use of insulin Controlled type 2 diabetes mellitus without complicati on, with long-term current use of insulin Disease Active 11-13 00:00: 00 [facility] Controlled type 2 diabetes mellitus without complicati on, with long-term current use of insulin Controlled type 2 diabetes mellitus without complicati on, with long-term current use of insulin Disease Active 11-13 00:00: 00 [facility] Essential hypertensi on Essential hypertensi on Disease Active 2014-07 00:00: 00 [facility] Hyperlipid emia Hyperlipid emia Disease Active 2014-07 00:00: 00 [facility] Hypothyroi dism (acquired) Hypothyroi dism (acquired) Disease Active 2014-07 00:00: 00 [facility] Hypothyroi dism, unspecifie d type Hypothyroi dism, unspecifie d type Disease Active 2015-1 2-24 00:00: 00 [facility] Allergies, Adverse Reactions, Alerts Allergy Name Allergy Type Status Severity Reaction(s) Onset Date Inactive Date Treating Clinician Comments Source MEPERIDI NE DRUG INGREDI Active Unknown-Cmnt 2023-07 00:00: 00 [facility] Meperidi ne Drug Allergy Active Unknown - See comments 2023-07 00:00: 00 [facility] LISINOPR IL DRUG INGREDI Active Dizziness 2021-07 00:00: 00 [facility] Lisinopr il Propensi ty to adverse reaction s Active Other - See comments 2021-07 00:00: 00 Patient had low blood pressure, elevated Cr per patient [facility] LOSARTAN DRUG INGREDI Active COUGH 2021-07 00:00: 00 [facility] Losartan Propensi ty to adverse reaction s Active Cough 2021-07 00:00: 00 [facility] CODEINE DRUG INGREDI Active Hallucinates 2020-0 5-04 00:00: 00 [facility] Clindamy molly Drug Allergy Active Rash 2020-0 5-04 00:00: 00 [facility] CLINDAMY MOLLY DRUG INGREDI Active Rash 2020-0 5-04 00:00: 00 [facility] Codeine Drug Allergy Active Dizziness 2020-0 5-04 00:00: 00 [facility] SULFA (SULFONA MIDE ANTIBIOT ICS) Drug Class Active N/V -06 00:00: 00 [facility] Sulfa (Sulfona mide Antibiot ics) Propensi ty to adverse reaction s Active Nausea and/or Vomiting - 00:00: 00 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, 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, tolerated fine with bendryl [facility] ERYTHROM YCIN DRUG Active Hives 0 9-11 00:00: 00 [facility] METFORMI N DRUG INGREDI Active Hallucinates 0 9-11 00:00: 00 [facility] Erythrom ycin Propensi ty to adverse reaction s Active Itching 2020-0 9-11 00:00: 00 [facility] Metformi n Propensi ty to adverse reaction s Active Hallucinatio ns 2019-0 9-11 00:00: 00 "FREAKED OUT" FLOOR & CEILING MET, ROOM SPUIN [facility] ADHESIVE TAPE-MANDEEP ICONES DRUG Active Rash 2019-0 2-14 00:00: 00 [facility] Adhesive Tape-Mandeep icones Drug Allergy Active Rash 0 2-14 00:00: 00 [facility] CIPROFLO XACIN DRUG INGREDI Active ITCHING 2017-07 0 00:00: 00 [facility] METRONID AZOLE DRUG INGREDI Active Unknown-Cmnt 2017-07 0 00:00: 00 [facility] Ciproflo xacin Propensi ty to adverse reaction s Active Itching 2017-07 00:00: 00 [facility] Metronid azole Propensi ty to adverse reaction s Active Unknown - See comments 2017-07 00:00: 00 [facility] LOSARTAN POTASSIU M DRUG INGREDI Active High SOB 2017-0 03-22 00:00: 00 [facility] Losartan Potassiu m Propensi ty to adverse reaction s Active Cough 2017-0 03-22 00:00: 00 [facility] PENTOXIF YLLINE DRUG INGREDI Active ITCHING 20170 15 00:00: 00 [facility] Pentoxif ylline Propensi ty to adverse reaction s Active Shortness of Breath 0 15 00:00: 00 [facility] MACROLID E ANTIBIOT ICS Drug Class Active Low Rash 2014-07 00:00: 00 [facility] PENICILL IN DRUG INGREDI Active Rash 2014-07 00:00: 00 [facility] Macrolid e Antibiot ics Drug Allergy Active Other - See comments 2014-07 00:00: 00 [facility] Penicill in Propensi ty to adverse reaction s Active Rash 2014-07 00:00: 00 [facility] Macrolid e Antibiot ics Drug Allergy Active Other - See comments 2014-07 00:00: 00 [facility] Macrolid e Antibiot ics Propensi ty to adverse reaction s Active Rash 2014-07 00:00: 00 [facility] Metformi n Allergy to substanc e Active Moderate to severe Hallucinatio ns [facility] Cipro Allergy to substanc e Active Mild Chest pain [facility] Clindamy molly Allergy to substanc e Active Rash [facility] Losartan Allergy to substanc e Active Cough [facility] MACROLID E ANTIBIOT ICS Allergy to substanc e Active Chest pain [facility] PENICILL INS Allergy to substanc e Active [facility] Pentoxif ylline Allergy to substanc e Active Chest pain [facility] SULFA (SULFONA MIDE ANTIBIOT ICS) Allergy to substanc e Active Moderate to severe Vomiting [facility] Social History Social Habit Start Date Stop Date Quantity Comments Source History SDOH Alcohol Std Drinks [facility] History SDOH Alcohol Binge [facility] History SDOH Social Connections Get Together [facility] History SDOH Social Connections Yazidism [facility] History SDOH Social Connections Membership [facility] History SDOH Social Connections Meetings [facility] Gender identity [facility] History of tobacco use Cigarette Smoker [facility] ASSERTION Not [facility] History of Social function 2024-04-03 00:00:00 2024-04-03 00:00:00 [facility] Alcohol intake 2023-10-30 00:00:00 2023-10-30 00:00:00 0 /d [facility] Exposure to SARS-CoV-2 (event) 2022-09-18 00:00:00 2022-09-28 10:27:00 Not sure [facility] History SDOH Alcohol Frequency 2022-06-28 00:00:00 2022-06-28 00:00:00 1 [facility] History SDOH Social Connections Phone 2022-06-28 00:00:00 2022-06-28 00:00:00 1 [facility] History SDOH Social Connections Living 2022-06-28 00:00:00 2022-06-28 00:00:00 7 [facility] History SDOH Physical Activity DPW 2022-06-28 00:00:00 2022-06-28 00:00:00 7 [facility] History SDOH Physical Activity MPS 2022-06-28 00:00:00 2022-06-28 00:00:00 2 [facility] History SDOH Financial 2022-06-28 00:00:00 2022-06-28 00:00:00 5 [facility] History SDOH Food Worry 2022-06-28 00:00:00 2022-06-28 00:00:00 1 [facility] History SDOH Food Scarcity 2022-06-28 00:00:00 2022-06-28 00:00:00 1 [facility] History SDOH Transport Med 2022-06-28 00:00:00 2022-06-28 00:00:00 2 [facility] History SDOH Transport Non-Med 2022-06-28 00:00:00 2022-06-28 00:00:00 2 [facility] Tobacco Comment 2022-01-29 00:00:00 2022-01-29 00:00:00 exposed to 2nd hand smoke [facility] Education 2019-04-11 00:00:00 2019-04-11 00:00:00 21 [facility] Alcoholic beverage intake 2018-03-22 00:00:00 2018-03-22 00:00:00 0 /d [facility] Tobacco use and exposure 2017-08-03 00:00:00 2017-08-03 00:00:00 Smokeless tobacco non-user [facility] Sex assigned at 1945 00:00:00 1945 00:00:00 [facility] Smoking Status Start Date Stop Date Source Never Smoker [facility] Medications Ordered Medication Name Filled Medication Name Start Date Stop Date Current Medication? Ordering Clinician Indication Dosage Frequency Signature (SIG) Comments Components Source TRAZODONE 50 mg tablet 3-13 00:00: 00 Yes [id number] 50mg TAKE ONE (1) TABLET(S) BY MOUTH AT BEDTIME. [facility] glipiZIDE 2.5 mg Tab 2-24 00:00: 00 Yes TAKE ONE (1) TABLET BY MOUTH ONCE DAILY. [facility] insulin degludec 100 unit/mL (3 mL) InPn 18 00:00: 00 Yes [id number] Inject 32 units under the skin once every morning [facility] escitalopra m oxalate 10 mg tablet 211 00:00: 00 Yes [id number] 10mg TAKE ONE (1) TABLET(S) BY MOUTH EVERY MORNING. [facility] baclofen 10 mg tablet 07-30 00:00: 00 Yes [id number] TAKE ONE (1) TABLET(S) BY MOUTH THREE TIMES A DAY NEEDED FOR PAIN. [facility] PRAVASTATIN 80 mg tablet 1-16 00:00: 00 Yes [id number] 80mg TAKE ONE (1) TABLET(S) BY MOUTH AT BEDTIME. [facility] clopidogreL 75 mg tablet 1-07 00:00: 00 Yes [id number] 75mg TAKE ONE (1) TABLET(S) BY MOUTH EVERY MORNING. [facility] TRESIBA FLEXTOUCH U-100 100 unit/mL (3 mL) In 2023-07 00:00: 00 08-21 00:00 :00 No [id number] INJECT 32 UNITS UNDER THE SKIN ONCE EVERY MORNING. [facility] BACLOFEN 10 mg tablet 2023-0724 00:00: 00 07-30 00:00 :00 No [id number] TAKE ONE (1) TABLET(S) BY MOUTH THREE TIMES A DAY NEEDED FOR PAIN. [facility] METOPROLOL TARTRATE 25 mg tablet 2023-0717 00:00: 00 Yes [id number] 12.5mg TAKE ONE-HALF (1/2) TABLET(S) BY MOUTH TWICE A DAY. [facility] pravastatin 80 mg tablet 2023-07-16 00:00: 00 Yes [id number] 80mg TAKE ONE (1) TABLET(S) BY MOUTH AT BEDTIME. [facility] CLOPIDOGREL 75 mg tablet 2023-07 00:00: 00 07-10 00:00 :00 No [id number] TAKE ONE (1) TABLET(S) BY MOUTH ONCE A DAY IN THE MORNING. [facility] LEVOTHYROXI NE 25 mcg tablet 2023-07 00:00: 00 Yes [id number] 25ug TAKE ONE (1) TABLET(S) BY MOUTH EVERY MORNING. [facility] PANTOPRAZOL E 40 mg EC tablet 2023-07 00:00: 00 Yes [id number] 40mg TAKE ONE (1) TABLET(S) BY MOUTH EVERY MORNING. [facility] BACLOFEN 10 mg tablet 2023-07 00:00: 00 06-26 00:00 :00 No [id number] TAKE ONE (1) TABLET(S) BY MOUTH THREE TIMES A DAY NEEDED FOR PAIN. [facility] ELIQUIS 5 mg tablet 2023-07 00:00: 00 Yes [id number] TAKE ONE (1) TABLET(S) BY MOUTH EVERY MORNING AND EVENING. [facility] spironolact one 25 mg tablet 2023-07 00:00: 00 Yes [id number] TAKE ONE (1) TABLET(S) BY MOUTH IN THE MORNING. [facility] CLOPIDOGREL 75 mg tablet 2023-07 00:00: 00 06-08 00:00 :00 No [id number] TAKE ONE (1) TABLET(S) BY MOUTH ONCE A DAY IN THE MORNING. [facility] cephALEXin 500 mg capsule 2023-07 00:00: 00 05-08 05:59 :00 No [id number] 500mg Take 1 capsule by mouth 4 (four) times daily for 7 days. [facility] furosemide 40 mg tablet 2023-07 00:00: 00 Yes [id number] TAKE ONE (1) TABLET BY MOUTH EVERY MORNING AND EVENING. [facility] baclofen 10 mg tablet 2023-07 0-24 00:00: 00 05-28 00:00 :00 No [id number] TAKE ONE (1) TABLET(S) BY MOUTH THREE TIMES A DAY NEEDED FOR PAIN. [facility] Blood-Gluco se Sensor (FREESTYLE KANDI 3 SENSOR) Leigh Ann 2023-07 0-17 00:00: 00 Yes [id number] Use 3 times daily to check blood sugar, switch after 14 days [facility] Blood-Gluco se Meter,Ruth nuous (FREESTYLE KANDI 3 READER) Misc 2023-07 017 00:00: 00 Yes [id number] Use 3 times daily to check blood sugar [facility] CLOPIDOGREL 75 mg tablet 18 00:00: 00 05-09 00:00 :00 No [id number] TAKE ONE (1) TABLET(S) BY MOUTH ONCE A DAY IN THE MORNING. [facility] PRAVASTATIN 80 mg tablet 17 00:00: 00 06-18 00:00 :00 No [id number] 80mg TAKE ONE (1) TABLET(S) BY MOUTH AT BEDTIME. [facility] methocarbam oL 750 mg tablet 8-29 00:00: 00 05-10 00:00 :00 No TAKE ONE (1) TABLET(S) BY MOUTH EVERY EIGHT HOURS NEEDED FOR MUSCLE SORENESS. [facility] BACLOFEN 10 mg tablet 8-23 00:00: 00 04-26 00:00 :00 No [id number] TAKE ONE (1) TABLET(S) BY MOUTH THREE TIMES A DAY NEEDED FOR RESTLESS LEGS PAIN. [facility] CLOPIDOGREL 75 mg tablet 8-15 00:00: 00 03-21 00:00 :00 No [id number] TAKE ONE (1) TABLET(S) BY MOUTH IN THE MORNING. [facility] TRESIBA FLEXTOUCH U-100 100 unit/mL (3 mL) InPn 8-09 00:00: 00 06-28 00:00 :00 No [id number] INJECT 32 UNITS UNDER THE SKIN ONCE EVERY MORNING. [facility] traMADoL 50 mg tablet 01-30 00:00: 00 Yes [id number] 50mg Take 1 tablet by mouth every 6 (six) hours as needed for Pain (scale 4-6). Indication s: chronic pain [facility] pregabalin 50 mg capsule 01-30 00:00: 00 Yes [id number] TAKE ONE (1) CAPSULE(S) BY MOUTH EVERY NIGHT AT BEDTIME. [facility] nystatin 100,000 unit/gram powder 01-30 00:00: 00 05-10 00:00 :00 No [id number] Apply to area(s) 3 (three) times daily as needed for Rash. [facility] furosemide 40 mg tablet 01-30 00:00: 00 04-27 00:00 :00 No [id number] TAKE ONE (1) TABLET BY MOUTH EVERY MORNING AND EVENING. [facility] hydralAZINE (APRESOLINE ) injection 10 mg 01-16 00:15: 00 01-16 00:28 :00 No 10mg 10 mg, Slow IV Push, ONCE, 1 dose, On Tue01/16/24 at 1915, GI [facility] furosemide (LASIX) injection 40 mg 01-16 00:15: 00 01-16 00:28 :00 No 40mg 40 mg, IV Push, ONCE, 1 dose, On Tue01/16/24 at 1915, GI [facility] sodium chloride (NS) injection 5 mL 01-15 21:16: 36 Yes 5mL 5 mL, Intravenou s, PRN, Starting on Tue01/16/24 at 1616, Until Discontinu ed, Routine, IV line flushing [facility] clopidogreL (PLAVIX) 75 mg tablet 01-12 00:00: 00 2024- 08-15 00:00 :00 No [id number] 75mg Take 1 tablet by mouth in the morning. [facility] hydrOXYzine 25 mg tablet 12-26 00:00: 00 Yes [id number] 25mg Take 1 tablet by mouth at bedtime. [facility] nystatin 100,000 unit/gram cream 12-26 00:00: 00 04-03 00:00 :00 No [id number] Apply to area(s) 2 (two) times daily. [facility] cefpodoxime 100 mg tablet 12-26 00:00: 00 04-03 00:00 :00 No [id number] 100mg Take 1 tablet by mouth in the morning and 1 tablet in the evening. [facility] pramipexole 0.75 mg tablet 12-21 00:00: 00 Yes [id number] .75mg TAKE ONE (1) TABLET(S) BY MOUTH AT BEDTIME. [facility] PRAVASTATIN 80 mg tablet 12-21 00:00: 00 03-20 00:00 :00 No [id number] 80mg TAKE ONE (1) TABLET(S) BY MOUTH AT BEDTIME. [facility] baclofen 10 mg tablet 12-21 00:00: 00 02-23 00:00 :00 No [id number] 10mg Take 1 tablet by mouth 3 (three) times daily as needed for Pain (scale 4-6) (for restless legs, may make you sleepy). [facility] insulin aspart U-100 100 unit/mL (3 mL) injection 12-08 00:00: 00 Yes [id number] INJECT THREE TIMES DAILY BEFORE MEALS 12 UNITS AT BREAKFAST, 14 UNITS AT LUNCH, AND 14 UNITS AT SUPPER. IF GLUCOSE > 150, SLIDING SCALE UTILIZED. [facility] METOPROLOL TARTRATE 25 mg tablet 12-08 00:00: 00 06-19 00:00 :00 No [id number] TAKE ONE-HALF (1/2) TABLET(S) BY MOUTH TWICE A DAY (MORNING AND EVENING). [facility] ondansetron 4 mg disintegrat ing tablet 11-20 00:00: 00 Yes [id number] 4mg Take 1 tablet by mouth every 8 (eight) hours as needed for Nausea and Vomiting (N/V). [facility] cephALEXin 500 mg capsule 11-20 00:00: 00 12-26 00:00 :00 No [id number] 500mg Take 1 capsule by mouth in the morning and 1 capsule in the evening. [facility] levothyroxi ne 25 mcg tablet 11-10 11:21: 47 11-10 00:00 :00 No 25ug Take 1 tablet by mouth every morning. [facility] pravastatin 40 mg tablet 11-10 11:04: 59 Yes 40mg Take 1 tablet by mouth at bedtime. [facility] pravastatin 40 mg tablet 11-10 11:04: 59 05-10 00:00 :00 No 40mg Take 1 tablet by mouth at bedtime. [facility] semaglutide (OZEMPIC) 2 mg/dose (8 mg/3 mL) PnIj 11-10 00:00: 00 05-10 00:00 :00 No [id number] Inject 2mg under skin weekly DX E11.65 REFILLS CAN BE ADDRESSED AT FOLLOW UP APPT 11/22/23 [facility] benzonatate 100 mg capsule 11-10 00:00: 00 04-03 00:00 :00 No [id number] TAKE ONE (1) OR TWO (2) CAPSULE(S) BY MOUTH EVERY EIGHT HOURS NEEDED FOR COUGH. [facility] traMADoL 50 mg tablet 11-10 00:00: 00 01-30 00:00 :00 No [id number] 50mg Take 1 tablet by mouth every 6 (six) hours as needed for Pain (scale 4-6). Indication s: chronic pain [facility] nystatin 100,000 unit/gram powder 11-10 00:00: 00 01-30 00:00 :00 No [id number] Apply to area(s) 3 (three) times daily as needed for Rash. [facility] INSULIN ASPART U-100 100 unit/mL (3 mL) injection 10-31 00:00: 00 12-08 00:00 :00 No [id number] INJECT THREE TIMES DAILY BEFORE MEALS 12 UNITS AT BREAKFAST, 14 UNITS AT LUNCH, AND 14 UNITS AT SUPPER. IF GLUCOSE > 150, SLIDING SCALE UTILIZED. [facility] semaglutide (OZEMPIC) 2 mg/dose (8 mg/3 mL) PnIj 10-31 00:00: 00 11-10 00:00 :00 No Inject 2mg under skin weekly DX E11.65 REFILLS CAN BE ADDRESSED AT FOLLOW UP APPT 11/22/23 [facility] traMADoL (ULTRAM) tablet 50 mg 10-29 20:23: 00 10-29 21:09 :00 No 50mg 50 mg, Oral, ONCE, 1 dose, On 10/30/23 at 1530, GI [facility] pregabalin 50 mg capsule 10-26 00:00: 00 01-30 00:00 :00 No [id number] TAKE ONE (1) CAPSULE(S) BY MOUTH EVERY NIGHT AT BEDTIME. [facility] semaglutide (OZEMPIC) 2 mg/dose (8 mg/3 mL) PnIj 10-26 00:00: 00 10-31 00:00 :00 No REFILLS CAN BE ADDRESSED AT FOLLOW UP APPT 11/22/23 [facility] TRESIBA FLEXTOUCH U-100 100 unit/mL (3 mL) InPn 09-27 00:00: 00 02-09 00:00 :00 No [id number] INJECT 32 UNITS UNDER THE SKIN ONCE EVERY MORNING. [facility] pravastatin 80 mg tablet 09-22 00:00: 00 12-21 00:00 :00 No [id number] 80mg TAKE ONE (1) TABLET(S) BY MOUTH AT BEDTIME. [facility] pravastatin 40 mg tablet 09-20 10:41: 24 Yes 40mg Take 1 tablet by mouth at bedtime. [facility] empaglifloz in (JARDIANCE) 10 mg tablet 09-20 00:00: 00 05-10 00:00 :00 No [id number] 10mg Take 1 tablet by mouth in the morning. [facility] spironolact one 25 mg tablet 09-20 00:00: 00 05-09 00:00 :00 No [id number] 25mg Take 1 tablet by mouth in the morning. [facility] insulin aspart U-100 (NOVOLOG FLEXPEN U-100 INSULIN) 100 unit/mL (3 mL) injection 09-04 00:00: 00 10-31 00:00 :00 No [id number] INJECT THREE TIMES DAILY BEFORE MEALS 12 UNITS AT BREAKFAST, 14 UNITS AT LUNCH, AND 14 UNITS AT SUPPER. IF GLUCOSE > 150, SLIDING SCALE UTILIZED. [facility] ESCITALOPRA M OXALATE 10 mg tablet 08-22 00:00: 00 08-14 00:00 :00 No [id number] 10mg TAKE ONE (1) TABLET(S) BY MOUTH EVERY MORNING. [facility] TRAZODONE 50 mg tablet 16 00:00: 00 Yes [id number] 50mg TAKE ONE (1) TABLET(S) BY MOUTH AT BEDTIME. [facility] pravastatin 40 mg tablet 07-13 08:40: 08 Yes 40mg Take 1 tablet by mouth at bedtime. [facility] levothyroxi ne 25 mcg tablet 07-13 08:40: 08 Yes 25ug Take 1 tablet by mouth every morning. [facility] ammonium lactate 12 % cream 07-13 08:40: 08 Yes APPLY TO AFFECTED AREA TWICE A DAY [facility] latanoprost , PF, 0.005 % Drop 07-13 08:40: 08 Yes 1[drp] Place 1 Drop in both eyes at bedtime. [facility] latanoprost , PF, 0.005 % Drop 07-13 08:40: 08 Yes 1[drp] Place 1 Drop in both eyes at bedtime. [facility] polyethylen e glycol 3350 (MIRALAX) 17 gram/dose powder 07-13 08:40: 08 Yes 17g Take 17 g by mouth in the morning. [facility] montelukast 10 mg tablet 07-13 08:40: 08 05-10 00:00 :00 No 10mg Take 1 tablet by mouth at bedtime. [facility] hydrocortis one 1 % cream 07-13 08:40: 08 05-10 00:00 :00 No hydrocorti sone 1 % topical cream APPLY TO AFFECTED AREA 3 TIMES A DAY NEEDED FOR ITCHING [facility] pantoprazol e 40 mg EC tablet 07-13 08:40: 08 03-12 00:00 :00 No 40mg Take 1 tablet by mouth in the morning. [facility] clotrimazol e 1 % topical cream 07-13 08:40: 08 12-26 00:00 :00 No Use as directed [facility] nystatin 100,000 unit/gram powder 07-12 00:00: 00 11-10 00:00 :00 No [id number] APPLY TO AFFECTED AREA THREE TIMES A DAY NEEDED FOR RASH. [facility] semaglutide (OZEMPIC) 2 mg/dose (8 mg/3 mL) PnIj 07-12 00:00: 00 10-26 00:00 :00 No INJECT TWO (2) MG UNDER THE SKIN ONCE WEEKLY. [facility] traMADoL 100 mg Tab 07-08 14:50: 51 07-08 00:00 :00 No 50mg Take 50 mg by mouth at bedtime. [facility] fluticasone furoate 200 mcg/actuati on DsDv 07-08 14:08: 55 Yes INHALE 1 PUFF BY MOUTH EVERY 24 HOURS [facility] venlafaxine XR 75 mg 24 hr capsule 07-08 14:08: 55 05-10 00:00 :00 No 75mg Take 1 capsule by mouth in the morning. [facility] fluticasone propionate 50 mcg/actuati on nasal spray 07-08 14:08: 55 05-10 00:00 :00 No 2{spray } Use 2 Sprays in each nostril once daily as needed. [facility] fluticasone furoate 200 mcg/actuati on DsDv 07-08 14:08: 55 05-10 00:00 :00 No INHALE 1 PUFF BY MOUTH EVERY 24 HOURS [facility] diphenhydrA MINE (BANOPHEN) 25 mg capsule 07-08 14:08: 55 04-03 00:00 :00 No 25mg Take 1 capsule by mouth every 6 (six) hours as needed. [facility] albuterol (VENTOLIN HFA) 90 mcg/actuati on inhaler 07-08 14:08: 04-03 00:00 :00 No INHALE 2 PUFFS EVERY 6 (SIX) HOURS IF NEEDED FOR WHEEZING OR SHORTNESS OF BREATH FOR UP TO 10 DAYS [facility] pravastatin 40 mg tablet 07-08 14:06: 22 Yes 40mg Take 1 tablet by mouth at bedtime. [facility] pantoprazol e 40 mg EC tablet 07-08 14:06: 22 Yes 40mg Take 1 tablet by mouth in the morning. [facility] montelukast 10 mg tablet 07-08 14:06: 22 Yes 10mg Take 1 tablet by mouth at bedtime. [facility] levothyroxi ne 25 mcg tablet 07-08 14:06: 22 Yes 25ug Take 1 tablet by mouth every morning. [facility] hydrocortis one 1 % cream 07-08 14:06: 22 Yes hydrocorti sone 1 % topical cream APPLY TO AFFECTED AREA 3 TIMES A DAY NEEDED FOR ITCHING [facility] clotrimazol e 1 % topical cream 07-08 14:06: 22 Yes Use as directed [facility] ammonium lactate 12 % cream 07-08 14:06: 22 Yes APPLY TO AFFECTED AREA TWICE A DAY [facility] latanoprost , PF, 0.005 % Drop 07-08 14:06: 22 Yes 1[drp] Place 1 Drop in both eyes at bedtime. [facility] polyethylen e glycol 3350 (MIRALAX) 17 gram/dose powder 07-08 14:06: 22 Yes 17g Take 17 g by mouth in the morning. [facility] hydrOXYzine 25 mg tablet 07-08 00:00: 00 12-26 00:00 :00 No [id number] 25mg Take 1 tablet by mouth every 12 (twelve) hours as needed for Itching. [facility] traMADoL 50 mg tablet 07-08 00:00: 00 11-10 00:00 :00 No [id number] 50mg Take 1 tablet by mouth every 6 (six) hours as needed for Pain (scale 4-6). Indication s: chronic pain [facility] furosemide 40 mg tablet 2022-07 00:00: 00 01-30 00:00 :00 No [id number] 20mg Take 0.5 tablets by mouth every morning and evening. [facility] pregabalin 50 mg capsule 2022-07 00:00: 00 10-26 00:00 :00 No [id number] TAKE ONE (1) CAPSULE(S) BY MOUTH AT BEDTIME. [facility] potassium chloride 20 mEq tablet 2022-07 19:44: 40 06-22 00:00 :00 No 20meq Take 1 tablet by mouth in the morning. [facility] potassium chloride 20 mEq tablet 2022-07 10:32: 30 Yes 20meq Take 1 tablet by mouth in the morning. [facility] midodrine 5 mg tablet 2022-07 2-20 10:32: 20 06-22 00:00 :00 No TAKE 1 TABLET BY MOUTH 3 (THREE) TIMES DAILY FOR 90 DAYS. [facility] midodrine 5 mg tablet 2022-07 10:32: 06-22 00:00 :00 No TAKE 1 TABLET BY MOUTH 3 (THREE) TIMES DAILY FOR 90 DAYS. [facility] dapaglifloz in propanediol (FARXIGA) 10 mg tablet 2022-07 10:31: 57 06-22 00:00 :00 No 10mg Take 1 tablet by mouth in the morning. [facility] dapaglifloz in propanediol (FARXIGA) 10 mg tablet 2022-07 10:31: 57 06-22 00:00 :00 No 10mg Take 1 tablet by mouth in the morning. [facility] aspirin 81 mg chewable tablet 2022-07 10:31: 47 06-22 00:00 :00 No Chew 1 tablet every day by oral route. [facility] aspirin 81 mg chewable tablet 2022-07 10:31: 47 06-22 00:00 :00 No Chew 1 tablet every day by oral route. [facility] metOLazone 5 mg tablet 2022-07 10:31: 06-22 00:00 :00 No TAKE 1 TABLET BY MOUTH EVERY 3RD DAY [facility] metOLazone 5 mg tablet 2022-07 10:31: 25 06-22 00:00 :00 No TAKE 1 TABLET BY MOUTH EVERY 3RD DAY [facility] NIFEdipine XL 60 mg 24 hr tablet 2022-07 10:31: 04 06-22 00:00 :00 No 60mg Take 1 tablet by mouth in the morning. [facility] pravastatin 40 mg tablet 2022-07 10:30: 06 Yes 40mg Take 1 tablet by mouth at bedtime. [facility] potassium chloride 20 mEq tablet 2023-1 2-20 00:00: 00 Yes 20meq Take 1 tablet by mouth every Tuesday, Tuesday and Tuesday. [facility] omeprazole 40 mg capsule 2022-07 08:33: 38 06-06 00:00 :00 No 40mg Take 1 capsule by mouth every morning. [facility] insulin aspart U-100 100 unit/mL (3 mL) injection 2022-07 08:08: 06 06-06 00:00 :00 No inject under the skin 3 (three) times daily before meals. [facility] pravastatin 40 mg tablet 2022-07 08:08: 04 Yes 40mg Take 1 tablet by mouth at bedtime. [facility] potassium chloride 20 mEq tablet 2022-07 08:08: 04 Yes 20meq Take 1 tablet by mouth in the morning. [facility] pantoprazol e 40 mg EC tablet 2022-07 08:08: 04 Yes 40mg Take 1 tablet by mouth in the morning. [facility] NIFEdipine XL 60 mg 24 hr tablet 2022-07 08:08: 04 Yes 60mg Take 1 tablet by mouth in the morning. [facility] montelukast 10 mg tablet 2022-07 08:08: 04 Yes 10mg Take 1 tablet by mouth at bedtime. [facility] midodrine 5 mg tablet 2022-07 08:08: 04 Yes TAKE 1 TABLET BY MOUTH 3 (THREE) TIMES DAILY FOR 90 DAYS. [facility] metOLazone 5 mg tablet 2022-07 08:08: 04 Yes TAKE 1 TABLET BY MOUTH EVERY 3RD DAY [facility] levothyroxi ne 25 mcg tablet 2022-07 08:08: 04 Yes 25ug Take 1 tablet by mouth every morning. [facility] hydrocortis one 1 % cream 2022-07 08:08: 04 Yes hydrocorti sone 1 % topical cream APPLY TO AFFECTED AREA 3 TIMES A DAY NEEDED FOR ITCHING [facility] fluticasone propionate 50 mcg/actuati on nasal spray 2022-07 08:08: 04 Yes 2{spray } Use 2 Sprays in each nostril once daily as needed. [facility] fluticasone furoate 200 mcg/actuati on DsDv 2022-07 08:08: 04 Yes INHALE 1 PUFF BY MOUTH EVERY 24 HOURS [facility] diphenhydrA MINE (BANOPHEN) 25 mg capsule 2022-07 08:08: 04 Yes 25mg Take 1 capsule by mouth every 6 (six) hours as needed. [facility] dapaglifloz in propanediol (FARXIGA) 10 mg tablet 2022-07 08:08: 04 Yes 10mg Take 1 tablet by mouth in the morning. [facility] clotrimazol e 1 % topical cream 2022-07 08:08: 04 Yes Use as directed [facility] aspirin 81 mg chewable tablet 2022-07 08:08: 04 Yes Chew 1 tablet every day by oral route. [facility] ammonium lactate 12 % cream 2022-07 08:08: 04 Yes APPLY TO AFFECTED AREA TWICE A DAY [facility] albuterol (VENTOLIN HFA) 90 mcg/actuati on inhaler 2022-07 08:08: 04 Yes INHALE 2 PUFFS EVERY 6 (SIX) HOURS IF NEEDED FOR WHEEZING OR SHORTNESS OF BREATH FOR UP TO 10 DAYS [facility] latanoprost , PF, 0.005 % Drop 2022-07 08:08: 04 Yes 1[drp] Place 1 Drop in both eyes at bedtime. [facility] polyethylen e glycol 3350 (MIRALAX) 17 gram/dose powder 2022-07 08:08: 04 Yes 17g Take 17 g by mouth in the morning. [facility] fluticasone furoate 200 mcg/actuati on DsDv 2022-07 08:08: 04 Yes INHALE 1 PUFF BY MOUTH EVERY 24 HOURS [facility] venlafaxine XR 75 mg 24 hr capsule 2022-07 08:08: 03 Yes 75mg Take 1 capsule by mouth in the morning. [facility] blood sugar diagnostic strip 2022-07 00:00: 00 Yes [id number] Use as directed to monitor blood sugar TID and PRN. [facility] blood sugar diagnostic (ACCU-CHEK PHILLIP PLUS TEST STRP) strip 2022-07 00:00: 00 Yes [id number] 1{strip } Take 1 Strip in the morning and 1 Strip at noon and 1 Strip in the evening. Use as directed [facility] levothyroxi ne 25 mcg tablet 2022-07 00:00: 00 06-01 00:00 :00 No [id number] 25ug Take 1 tablet by mouth every morning. [facility] pantoprazol e 40 mg EC tablet 2022-07 00:00: 00 06-01 00:00 :00 No [id number] 40mg Take 1 tablet by mouth in the morning. [facility] cephALEXin (KEFLEX) 500 mg capsule 2022-07 00:00: 00 06-14 05:59 :00 No [id number] 500mg Take 1 capsule by mouth in the morning and 1 capsule in the evening. Do all this for 7 days. [facility] mupirocin 2 % ointment 2022-07 00:00: 00 06-09 05:59 :00 No [id number] Apply to area(s) 3 (three) times daily for 7 days. [facility] mupirocin 2 % ointment 2022-07 00:00: 00 06-09 05:59 :00 No [id number] Apply to area(s) 3 (three) times daily for 7 days. [facility] empaglifloz in (JARDIANCE) 10 mg 2022-07 00:00: 00 09-20 00:00 :00 No [id number] 10mg Take 1 tablet by mouth in the morning. [facility] insulin degludec 100 unit/mL Soln 2022-07 00:00: 00 09-27 00:00 :00 No [id number] 32U inject 32 Units under the skin in the morning. Morning [facility] insulin degludec (TRESIBA FLEXTOUCH U-100) 100 unit/mL (3 mL) InPn 2022-07 00:00: 00 09-27 00:00 :00 No [id number] 32U inject 32 Units under the skin every morning. [facility] insulin aspart U-100 (NOVOLOG FLEXPEN U-100 INSULIN) 100 unit/mL (3 mL) injection 2022-07 00:00: 00 09-04 00:00 :00 No [id number] TIDAC - 12 units at breakfast, 14 units at lunch, and 14 units at supper. If glucose > 150, sliding scale utilized. [facility] clopidogreL (PLAVIX) 75 mg tablet 2022-07 00:00: 00 01-11 00:00 :00 No [id number] 75mg Take 1 tablet by mouth in the morning. [facility] insulin aspart U-100 100 unit/mL (3 mL) injection 2022-07 14:32: 26 Yes inject under the skin 3 (three) times daily before meals. [facility] traMADoL 100 mg Tab 2022-07 14:32: 26 Yes 50mg Take 50 mg by mouth at bedtime. [facility] semaglutide (OZEMPIC) 1 mg/dose (4 mg/3 mL) PnIj 2022-07 00:00: 00 10-26 00:00 :00 No [id number] 1mg inject 1 mg under the skin weekly. [facility] insulin aspart U-100 100 unit/mL (3 mL) injection 2022-07 11:25: 15 Yes inject under the skin 3 (three) times daily before meals. [facility] traMADoL 100 mg Tab 2022-07 11:25: 15 Yes 50mg Take 50 mg by mouth at bedtime. [facility] levothyroxi ne 25 mcg tablet 2022-07 00:00: 00 05-21 05:59 :00 No [id number] 25ug Take 1 tablet by mouth every morning for 30 days. [facility] pantoprazol e 40 mg EC tablet 2022-07 00:00: 00 05-21 05:59 :00 No [id number] 40mg Take 1 tablet by mouth in the morning for 30 days. [facility] polyethylen e glycol 3350 17 gram powder 2022-07 00:00: 00 05-21 05:59 :00 No [id number] 17g Take 1 Packet by mouth in the morning for 30 days. [facility] spironolact one 25 mg tablet 2022-07 00:00: 00 05-21 05:59 :00 No [id number] 25mg Take 1 tablet by mouth in the morning for 30 days. [facility] KCL 20 mEq tablet 2022-07 00:00: 00 05-21 05:59 :00 No [id number] 20meq Take 1 tablet by mouth in the morning for 30 days. [facility] empaglifloz in (JARDIANCE) tablet 10 [...] meet the criteria for inpatient ordering? Yes [facility] insulin aspart U-100 100 unit/mL (3 mL) injection 2022-07 18:35: 41 Yes inject under the skin 3 (three) times daily before meals. [facility] traMADoL 100 mg Tab 2022-07 18:35: 41 Yes 50mg Take 50 mg by mouth at bedtime. [facility] acetaminoph en (TYLENOL) 325 mg Cap 2022-07 14:28: 08 04-19 00:00 :00 No Take by mouth as needed. [facility] ACCU-CHEK PHILLIP PLUS TEST STRP strip 2022-07 00:00: 00 06-06 00:00 :00 No USE TO TEST 3 TIMES DAILY. [facility] acetaminoph en 325 mg tablet 2022-07 00:00: 00 05-20 05:59 :00 No [id number] 650mg Take 2 tablets by mouth every 6 (six) hours as needed for Pain (scale 1-3) for up to 30 days. [facility] baclofen 10 mg tablet 2022-07 00:00: 00 05-20 05:59 :00 No [id number] 5mg Take 0.5 tablets by mouth 2 (two) times daily as needed for Pain (scale 7-10) for up to 30 days. [facility] pravastatin 80 mg tablet 2022-07 00:00: 00 05-20 05:59 :00 No [id number] 80mg Take 1 tablet by mouth at bedtime for 30 days. [facility] empaglifloz in 10 mg 2022-07 00:00: 00 05-20 05:59 :00 No [id number] 10mg Take 1 tablet by mouth in the morning for 30 days. [facility] nystatin (NYSTOP) 100,000 unit/gram powder 2022-07 00:00: 00 05-05 04:59 :00 No [id number] Apply to area(s) 2 (two) times daily for 30 doses. [facility] cloNIDine (CATAPRES) tablet 0.3 mg 2022-07 10:45: 00 04-18 09:54 :00 No .3mg 0.3 mg, Oral, ONCE, 1 dose, On 04/18/23 at 0545, Routine [facility] pravastatin (PRAVACHOL) tablet 80 mg 2022-0716 02:00: 00 Yes 80mg 80 mg, Oral, QHS, First dose on 04/17/23 at 2100, Until Discontinu ed, Routine [facility] traMADoL (ULTRAM) tablet 50 mg 2022-07 19:03: 19 Yes 50mg 50 mg, Oral, Q6HPRN, Starting on 04/17/23 at 1403, Until Discontinu ed, Routine, Pain (scale 4-6), leg pain [facility] hydralAZINE (APRESOLINE ) injection 10 mg 2022-07 19:02: 48 Yes 10mg 10 mg, Slow IV Push, Q6HPRN, Starting on 04/17/23 at 1402, Until Discontinu ed, STAT, DBP=>100; SBP=>160 [facility] KCL (KLOR-CON M20) tablet 20 mEq 2022-07 14:00: 00 Yes 20meq 20 mEq, Oral, DAILY, First dose on 04/17/23 at 0900, Until Discontinu ed, Routine [facility] hydralAZINE (APRESOLINE ) injection 5 mg 2022-07 16:28: 19 04-17 19:03 :41 No 5mg 5 mg, Slow IV Push, Q6HPRN, Starting on 04/16/23 at 1128, Until [place] 04/17/23 at 1403, STAT, DBP=>100; SBP=>160 [facility] KCL (KLOR-CON M20) tablet 40 mEq 2022-07 16:00: 00 04-16 17:44 :00 No 40meq 40 mEq, Oral, ONCE, 1 dose, On 04/16/23 at 1100, Routine [facility] insulin glargine (LANTUS U-100) injection 20 Units 2022-07 02:00: 00 Yes 20U 20 Units, Subcutaneo us, QHS, First dose (after last modificati on) on Tue04/15/23 at 2100, Until Discontinu ed, Routine [facility] furosemide (LASIX) injection 20 mg 2022-07 01:00: 00 Yes 20mg 20 mg, Slow IV Push, Q12H, First dose on Tue04/15/23 at 2000, Until Discontinu ed, Routine [facility] metoclopram cory HCl (REGLAN) injection 10 mg 2022-07 17:30: 00 Yes 10mg 10 mg, Slow IV Push, Q6HPRN, Starting on Tue04/14/23 at 1230, Until Discontinu ed, Routine, Nausea and Vomiting (N/V) [facility] furosemide (LASIX) tablet 20 mg 2022-07 17:30: 00 04-16 00:34 :17 No 20mg 20 mg, Oral, QAM+PM, First dose on Tue04/14/23 at 1230, Until Discontinu ed, Routine [facility] levothyroxi ne (SYNTHROID) tablet 25 mcg 2022-07 11:00: 00 Yes 25ug 25 mcg, Oral, QAM-0600, First dose on Tue04/14/23 at 0600, Until Discontinu ed, Routine [facility] pramipexole (MIRAPEX) tablet 0.75 mg 2022-07 06:00: 00 Yes .75mg 0.75 mg, Oral, QHS, First dose (after last modificati on) on Tue04/14/23 at 0100, Until Discontinu ed, Routine [facility] traZODone (DESYREL) tablet 50 mg 2022-07 02:00: 00 Yes 50mg 50 mg, Oral, QHS, First dose on Tue04/13/23 at 2100, Until Discontinu ed, Routine [facility] traMADoL (ULTRAM) tablet 50 mg 2022-07 02:00: 00 Yes 50mg 50 mg, Oral, QHS, First dose on Tue04/13/23 at 2100, Until Discontinu ed [facility] insulin glargine (LANTUS U-100) injection 30 Units 2022-07 02:00: 00 04-16 00:36 :09 No 30U 30 Units, Subcutaneo us, QHS, First dose on Tue04/13/23 at 2100, Until Discontinu ed, Routine [facility] cefTRIAXone (ROCEPHIN) 1,000 mg in NaCl 0.9% (NS) 100 mL MINI-BAG 2022-07 01:15: 00 04-19 01:44 :00 No 1000mg 1,000 mg, IV Piggyback, Q24H ABX, 6 doses, First dose on Tue04/13/23 at 2014, Last dose on Tue04/18/23 at 2014, Administer over 30 Minutes, 100 mL
Reas on for Anti-Infec tive: Documented Infection< br>Documen steph Infection Site: Urine
D uration of Therapy: 7 days [facility] apixaban (ELIQUIS) tablet 5 mg 2022-07 01:00: 00 Yes [id number] 5mg 5 mg, Oral, BID, First dose on Tue04/13/23 at 2000, Until Discontinu ed, Routine
Indicatio ns: Non-Valvul ar Atrial Fibrillati on [facility] metoclopram cory HCl (REGLAN) injection 10 mg 2022-07 00:00: 00 04-14 17:18 :00 No 10mg 10 mg, Slow IV Push, Q6H, First dose on Tue04/13/23 at 1900, Until Discontinu ed, Routine [facility] proMETHazin e (PHENERGAN) 25 mg in NaCl 0.9% (NS) 50 mL IV piggyback 2022-07 19:42: 05 04-13 23:56 :36 No 25mg 25 mg, IV Piggyback, Q6HPRN, Starting on Tue04/13/23 at 1442, Until Tue04/13/23 at 1856, Routine, Nausea and Vomiting (N/V) [facility] Sliding Scale Insulin - Lispro (HumaLOG) 2022-07 17:00: 00 Yes Subcutaneo us, TID MEALS+HS, First dose on Tue04/13/23 at 1200, Until Discontinu ed, Routine [facility] vancomycin (VANCOCIN) 1,500 mg in [...] Soft Tissue
Duration of Therapy: 7 days [facility] glucagon (GLUCAGEN DIAGNOSTIC KIT) injection 1 mg 2022-07 14:02: 11 Yes 1mg 1 mg, Intramuscu lar, PRN, Starting on Tue04/13/23 at 0902, Until Discontinu ed, GI, Blood Glucose < or = 70 mg/dL and patient is NPO, unable to swallow or has mental changes. [facility] dextrose 50 % in water (D50W) injection 25 mL 2022-07 14:02: 11 Yes 25mL 25 mL, Slow IV Push, PRN, Starting on Tue04/13/23 at 0902, Until Discontinu ed, GI, Blood Glucose < or = 70 mg/dL and patient is NPO, unable to swallow or has mental status changes. [facility] spironolact one (ALDACTONE) tablet 25 mg 2022-07 14:00: 00 Yes 25mg 25 mg, Oral, DAILY, First dose on Tue04/13/23 at 0900, Until Discontinu ed, Routine [facility] polyethylen e glycol 3350 powder 17 g 2022-07 14:00: 00 Yes 17g 17 g, Oral, DAILY, First dose on Tue04/13/23 at 0900, Until Discontinu ed, Routine [facility] pantoprazol e (PROTONIX) EC tablet 40 mg 2022-07 14:00: 00 Yes 40mg 40 mg, Oral, DAILY, First dose on Tue04/13/23 at 0900, Until Discontinu ed, Routine [facility] escitalopra m oxalate (LEXAPRO) tablet 10 mg 2022-07 14:00: 00 Yes 10mg 10 mg, Oral, DAILY, First dose on Tue04/13/23 at 0900, Until Discontinu ed, Routine [facility] clopidogreL (PLAVIX) 75 mg tablet 75 mg 2022-07 14:00: 00 Yes 75mg 75 mg, Oral, DAILY, First dose on Tue04/13/23 at 0900, Until Discontinu ed, Routine [facility] baclofen (LIORESAL) tablet 5 mg 2022-07 14:00: 00 Yes 5mg 5 mg, Oral, Q12H, First dose on Tue04/13/23 at 0900, Until Discontinu ed, Routine [facility] furosemide (LASIX) tablet 40 mg 2022-07 14:00: 00 04-14 00:11 :24 No 40mg 40 mg, Oral, QAM+PM, First dose on Tue04/13/23 at 0900, Until Discontinu ed, Routine [facility] ondansetron (ZOFRAN (PF)) injection 4 mg 2022-07 13:45: 00 04-13 12:53 :00 No 4mg 4 mg, Slow IV Push, ONCE, On Tue04/13/23 at 0845, For 1 dose
Do ses of ondansetro n 16 mg and above need to be administer ed via IV piggyback. For Dose >=24mg ECG monitoring is advisable.
[facility] pregabalin (LYRICA) capsule 50 mg 2022-07 13:00: 00 Yes 50mg 50 mg, Oral, BID, First dose on Tue04/13/23 at 0800, Until Discontinu ed, Routine [facility] nystatin (NYSTOP) powder 2022-07 13:00: 00 Yes Topical, BID, First dose on Tue04/13/23 at 0800, Until Discontinu ed, Routine [facility] metoprolol tartrate (LOPRESSOR) tablet 12.5 mg 2022-07 13:00: 00 Yes 12.5mg 12.5 mg, Oral, BID, First dose on Tue04/13/23 at 0800, Until Discontinu ed, Routine [facility] FENTanyl PF (SUBLIMAZE (PF)) injection 12.5 mcg 2022-07 09:14: 51 Yes 12.5ug 12.5 mcg, Slow IV Push, Q6HPRN, Starting on Tue04/13/23 at 0414, Until Discontinu ed, Routine, Pain (scale 4-6), Pain (scale 7-10) [facility] acetaminoph en (TYLENOL) 325 mg Cap 2022-07 07:50: 16 Yes Take by mouth as needed. [facility] insulin aspart U-100 100 unit/mL (3 mL) injection 2022-07 07:50: 16 Yes inject under the skin 3 (three) times daily before meals. [facility] traMADoL 100 mg Tab 2022-07 07:50: 16 Yes 50mg Take 50 mg by mouth at bedtime. [facility] heparin (porcine) injection 5,000 Units 2022-07 03:00: 00 04-13 12:50 :00 No 5000U 5,000 Units, Subcutaneo us, Q8H, First dose on Tue04/12/23 at 2200, Until Discontinu ed, Routine [facility] acetaminoph en (TYLENOL) tablet 650 mg 2022-07 00:36: 27 Yes 650mg 650 mg, Oral, Q6HPRN, Starting on Tue04/12/23 at 1936, Until Discontinu ed, Routine, Pain (scale 1-3) [facility] furosemide (LASIX) injection 20 mg 2022-07 00:15: 00 04-13 00:29 :00 No 20mg 20 mg, IV Push, ONCE, 1 dose, On Tue04/12/23 at 1915, GI [facility] furosemide (LASIX) injection 20 mg 2022-07 00:00: 00 04-13 00:06 :00 No 20mg 20 mg, IV Push, ONCE, 1 dose, On Tue04/12/23 at 1900, GI [facility] acetaminoph en (TYLENOL) tablet 1,000 mg 2022-07 23:00: 00 04-13 00:06 :00 No 1000mg 1,000 mg, Oral, ONCE, 1 dose, On Tue04/12/23 at 1800, GI [facility] cefTRIAXone (ROCEPHIN) 1,000 mg in NaCl 0.9% (NS) 100 mL MINI-BAG 2022-07 22:15: 00 04-12 23:42 :00 No 1000mg 1,000 mg, IV Piggyback, ONCE, 1 dose, On Tue04/12/23 at 1715, Administer over 30 Minutes, 100 mL
Reas on for Anti-Infec tive: Empiric Therapy for Suspected Infection< br>Empiric Therapy Site: Urine
D uration of therapy: 72 hours [facility] NaCl 0.9% (NS) bolus infusion 500 mL 2022-07 21:45: 00 04-12 23:42 :00 No 500mL at 999 mL/hr, 500 mL, IV Infusion, ONCE, 1 dose, On Tue04/12/23 at 1645, STAT [facility] latanoprost (XALATAN) 0.005 % ophthalmic drops 2022-07 21:02: 01 04-12 00:00 :00 No 1[drp] Place 1 Drop in both eyes every evening. [facility] ramipriL 2.5 mg capsule 2022-07 00:00: 00 06-22 00:00 :00 No 2.5mg Take 1 capsule by mouth in the morning. [facility] valsartan (DIOVAN) tablet 40 mg 03-29 01:00: 00 Yes 40mg 40 mg, Oral, BID, First dose (after last modificati on) on Tue03/28/23 at 2000, Until Discontinu ed, Routine [facility] clopidogreL 75 mg tablet 03-29 00:00: 00 04-19 00:00 :00 No [id number] 75mg Take 1 tablet by mouth in the morning. [facility] carvediloL (COREG) tablet 6.25 mg 03-28 22:00: 00 Yes 6.25mg 6.25 mg, Oral, BID MEALS, First dose on Tue03/28/23 at 1700, Until Discontinu ed, Routine [facility] latanoprost (XALATAN) 0.005 % ophthalmic drops 03-28 14:22: 53 Yes 1[drp] Place 1 Drop in both eyes every evening. [facility] acetaminoph en (TYLENOL) 325 mg Cap 03-28 14:22: 53 Yes Take by mouth as needed. [facility] furosemide (LASIX) tablet 40 mg 03-28 14:00: 00 Yes 40mg 40 mg, Oral, QAM+PM, First dose (after last modificati on) on Tue03/28/23 at 0900, Until Discontinu ed, Routine [facility] valsartan (DIOVAN) tablet 20 mg 03-28 14:00: 00 03-28 15:52 :50 No 20mg 20 mg, Oral, BID, First dose on Tue03/28/23 at 0900, Until Discontinu ed, Routine [facility] oxymetazoli ne (OXYMETAZOL INE HCL) 0.05 % nasal spray 1 [place] 03-28 13:00: 00 03-30 12:59 :00 No 1{spray } 1 [place], Nasal, BID, 4 doses, First dose on Tue03/28/23 at 0800, Last dose on Tue03/29/23 at 2000, Routine [facility] metoprolol tartrate (LOPRESSOR) tablet 12.5 mg 03-28 12:00: 00 03-28 15:49 :19 No 12.5mg 12.5 mg, Oral, BID, First dose on Tue03/28/23 at 0700, Until Discontinu ed, Routine [facility] aspirin (ASPIRIN LOW DOSE) 81 mg EC tablet 03-28 11:45: 42 03-28 00:00 :00 No 81mg Take 1 tablet by mouth in the morning. [facility] traMADoL 50 mg tablet 03-28 00:00: 00 04-05 04:59 :00 No [id number] 50mg Take 1 tablet by mouth every 6 (six) hours as needed for Pain (scale 7-10) for up to 7 days. Indication s: acute pain [facility] apixaban (ELIQUIS) tablet 5 mg 03-27 19:15: 00 Yes 5mg 5 mg, Oral, BID, First dose on 03/27/23 at 1415, Until Discontinu ed, Routine
Indicatio ns: DVT/PE [facility] acetaminoph en (TYLENOL) tablet 650 mg 03-27 13:05: 12 Yes 650mg 650 mg, Oral, Q6HPRN, Starting on 03/27/23 at 0805, Until Discontinu ed, Routine, Pain (scale 1-3) [facility] glycopyrrol ate (ROBINUL) injection 0.2 mg 03-26 19:07: 05 Yes .2mg 0.2 mg, Slow IV Push, Q15MIN PRN, Starting on 03/26/23 at 1407, Until Discontinu ed, Routine, if patient is symptomati c (headache / dizziness / diaphoreti c) and bradycardi a HR <40 for more than 2 min [facility] ipratropium -albuteroL (DUONEB) 0.5 mg-3 mg(2.5 mg base)/3 mL nebulizer solution 3 mL 03-26 17:00: 00 Yes 3mL 3 mL, Inhalation , QID, First dose on 03/26/23 at 1200, Until Discontinu ed, Routine [facility] guaiFENesin (FENESIN IR) tablet 400 mg 03-26 17:00: 00 Yes 400mg 400 mg, Oral, Q4H, First dose on 03/26/23 at 1200, Until Discontinu ed, Routine [facility] acetylcyste ine (MUCOMYST) 200 mg/mL (20 %) inhalation solution 200 mg 03-26 17:00: 00 03-30 16:59 :00 No 1mL 200 mg (1 mL), Inhalation , QID, 16 doses, First dose on Tue03/26/23 at 1200, Last dose on Tue03/30/23 at 0800, Routine [facility] loratadine (CLARITIN) tablet 10 mg 03-26 16:15: 00 Yes 10mg 10 mg, Oral, DAILY, First dose on Tue03/26/23 at 1115, Until Discontinu ed, Routine [facility] albuterol (VENTOLIN HFA) 90 mcg/actuati on inhaler 03-26 14:55: 38 Yes 2{puff} INHALE 2 PUFFS EVERY 6 (SIX) HOURS IF NEEDED FOR WHEEZING OR SHORTNESS OF BREATH FOR UP TO 10 DAYS [facility] clopidogreL (PLAVIX) 75 mg tablet 75 mg 03-26 14:00: 00 Yes 75mg 75 mg, Oral, DAILY, First dose on Tue03/26/23 at 0900, Until Discontinu ed, Routine [facility] spironolact one (ALDACTONE) tablet 25 mg 03-26 14:00: 00 Yes 25mg 25 mg, Oral, DAILY, First dose (after last modificati on) on Tue03/26/23 at 0900, Until Discontinu ed, Routine [facility] furosemide (LASIX) tablet 40 mg 03-26 14:00: 00 03-27 11:50 :26 No 40mg 40 mg, Oral, QAM+PM, First dose on Tue03/26/23 at 0900, Until Discontinu ed, Routine [facility] atropine injection 1 mg 03-26 07:05: 00 03-26 07:04 :00 No 1mg 1 mg, IV Push, ONCE, 1 dose, On Tue03/26/23 at 0215, Routine [facility] atropine injection 1 mg 03-26 04:30: 00 03-26 04:22 :00 No 1mg 1 mg, IV Push, ONCE, 1 dose, On Tue03/25/23 at 2330, Routine [facility] FENTanyl PF (SUBLIMAZE (PF)) injection 25 mcg 03-25 22:17: 21 Yes 25ug 25 mcg, Slow IV Push, Q4HPRN, Starting on Tue03/25/23 at 1717, Until Discontinu ed, Routine, Pain (scale 7-10) [facility] lactated ringers IV infusion 500 mL 03-25 21:15: 00 03-25 20:23 :00 No 500mL at 999 mL/hr, 500 mL, Intravenou s, ONCE, 1 dose, On Tue03/25/23 at 1615, Routine [facility] acetaminoph en ADULT (OFIRMEV) injection 1,000 mg 03-25 20:56: 19 03-26 20:55 :19 No 1000mg 1,000 mg, IV Infusion, at 400 mL/hr Administer over 15 Minutes, Q8HPRN, Starting on Tue03/25/23 at 1556, Until 03/26/23 at 1555, Routine, Pain (scale 1-3)
In dication: Perioperat [place] Patient [facility] ondansetron (ZOFRAN (PF)) injection 4 mg 03-25 20:32: 33 Yes 4mg 4 mg, Slow IV Push, Q6HPRN, Nausea and Vomiting (N/V), Starting on Tue03/25/23 at 1532
Do ses of ondansetro n 16 mg and above need to be administer ed via IV piggyback. For Dose >=24mg ECG monitoring is advisable.
[facility] clopidogreL (PLAVIX) 300 mg tablet 300 mg 03-25 19:35: 00 03-25 23:27 :00 No 300mg 300 mg, Oral, ONCE, 1 dose, On Tue03/25/23 at 1445, Routine [facility] sugammadex (BRIDION) injection 03-25 19:27: 00 03-25 19:57 :36 No IV Push, ONCE INTRA PROCEDURE, Starting on Tue03/25/23 at 1427, Until Tue03/25/23 at 1457, Routine, Intra-op [facility] ondansetron (ZOFRAN (PF)) injection 03-25 19:27: 00 03-25 19:57 :36 No Slow IV Push, ONCE INTRA PROCEDURE, Starting on Tue03/25/23 at 1427, Until Tue03/25/23 at 1457, Routine, Intra-op [facility] dexamethaso ne (DECADRON PHOSPHATE) injection 03-25 19:27: 00 03-25 19:57 :36 No IV Push, ONCE INTRA PROCEDURE, Starting on Tue03/25/23 at 1427, Until Tue03/25/23 at 1457, Routine, Intra-op [facility] iodixanoL (VISIPAQUE 270-150 mL) injection 03-25 18:39: 00 03-25 20:07 :46 No PRN, Starting on Tue03/25/23 at 1339, Until Tue03/25/23 at 1507, Routine, Intra-op [facility] heparin 10,000 units in NS 1000 mL for vascular 03-25 18:39: 00 03-25 20:07 :46 No PRN, Starting on Tue03/25/23 at 1339, Intra-op [facility] glycopyrrol ate (ROBINUL) injection 03-25 18:28: 00 03-25 19:57 :36 No Intravenou s, ONCE INTRA PROCEDURE, Starting on Tue03/25/23 at 1328, Until Tue03/25/23 at 1457, Routine, Intra-op [facility] heparin (1,000 unit/mL, 10 mL vial) 03-25 18:23: 00 03-25 19:57 :36 No ONCE INTRA PROCEDURE, Starting on Tue03/25/23 at 1323, Until Tue03/25/23 at 1457, Routine, Intra-op [facility] esmoloL (BREVIBLOC) injection 03-25 17:50: 00 03-25 19:57 :36 No Slow IV Push, ONCE INTRA PROCEDURE, Starting on Tue03/25/23 at 1250, Until Tue03/25/23 at 1457, Routine, Intra-op [facility] rocuronium (ZEMURON) injection 03-25 17:46: 00 03-25 19:57 :36 No IV Push, ONCE INTRA PROCEDURE, Starting on Tue03/25/23 at 1246, Until Tue03/25/23 at 1457, Routine, Intra-op [facility] propofoL IV infusion 03-25 17:46: 00 03-25 19:57 :36 No IV Infusion, ONCE INTRA PROCEDURE, Starting on Tue03/25/23 at 1246, Until Tue03/25/23 at 1457, Routine, Intra-op [facility] lidocaine 1% (XYLOCAINE) 100 mg/10 mL (1 %) injection 03-25 17:46: 00 03-25 19:57 :36 No Slow IV Push, ONCE INTRA PROCEDURE, Starting on Tue03/25/23 at 1246, Until Tue03/25/23 at 1457, Routine, Intra-op [facility] ePHEDrine 25 mg/5 mL (5 mg/mL) syringe 03-25 17:44: 00 03-25 19:57 :36 No Slow IV Push, ONCE INTRA PROCEDURE, Starting on Tue03/25/23 at 1244, Until Tue03/25/23 at 1457, Routine, Intra-op [facility] lactated ringers IV infusion 03-25 17:35: 00 03-25 19:57 :36 No IV Infusion, CONTINUOUS PRN, Starting on Tue03/25/23 at 1235, Until Tue03/25/23 at 1457, Routine, Intra-op [facility] FENTanyl PF (SUBLIMAZE (PF)) injection 03-25 17:31: 00 03-25 19:57 :36 No Intravenou s, ONCE INTRA PROCEDURE, Starting on Tue03/25/23 at 1231, Until Tue03/25/23 at 1457, Routine, Intra-op [facility] insulin glargine (LANTUS U-100) injection 32 Units 03-25 14:00: 00 Yes 32U 32 Units, Subcutaneo us, DAILY, First dose (after last modificati on) on Tue03/25/23 at 0900, Until Discontinu ed, [facility] hydral[facility] (APRESOLINE ) [facility] 10 mg 03-25 13:09: 53 Yes 10mg 10 mg, Slow IV Push, Q4HPRN, Starting on Tue03/25/23 at 0809, Until Discontinu ed, DBP=>100; SBP=>160 [facility] KCL (KLOR-CON M20) tablet 20 mEq 03-25 12:30: 00 03-25 12:41 :00 No 20meq 20 mEq, Oral, ONCE, 1 dose, On Tue03/25/23 at 0730, Routine [facility] acetaminoph en (TYLENOL) 325 mg Cap 03-25 12:26: 56 Yes Take by mouth as needed. [facility] valsartan (DIOVAN) tablet 20 mg 03-25 01:00: 00 03-25 01:11 :00 No 20mg 20 mg, Oral, ONCE, 1 dose, On Tue03/24/23 at 2000, Routine [facility] insulin lispro (human) (HumaLOG U-100) injection 5 Units 03-24 22:00: 00 Yes 5U 5 Units, Subcutaneo us, TID MEALS, First dose on Tue03/24/23 at 1700, Until Discontinu ed, Routine [facility] furosemide (LASIX) tablet 40 mg 03-24 22:00: 00 03-24 22:24 :00 No 40mg 40 mg, Oral, ONCE, 1 dose, On Tue03/24/23 at 1700, Routine [facility] heparin 1000 unit/mL injection Soln 5,000 Units 03-24 14:45: 00 03-24 16:10 :00 No 5000U 5,000 Units, IV Push, ONCE, 1 dose, On Devika 03/24/23 at 0945, Routine [facility] heparin 25,000 Units/250 mL in NS 03-24 [...] ; _ &nb sp;[facility], [facility], AND [facility] ONLY &nbs p; - aPTT [...] therapeuti c levels are reached.<b r> [facility] heparin (1,000 unit/mL, 10 mL vial) 03-24 14:32: 23 03-27 19:11 :02 No 3000U FOR REBOLUSING , Starting on Tue03/24/23 at 0932, Until Tue03/27/23 at 1411, Routine
Dosing based on aPTT testing parameters (refer to continuous heparin drip order)
[facility] insulin glargine (LANTUS U-100) injection 26 Units 03-24 14:00: 00 03-24 19:22 :18 No 26U 26 Units, Subcutaneo us, DAILY, First dose (after last modificati on) on Tue03/24/23 at 0900, Until Discontinu ed, Routine [facility] benzocaine- menthoL (CEPACOL SORE THROAT (JYOTSNA-MEN)) lozenge 1 Lozenge 03-24 02:04: 13 Yes 1{lozen ge} 1 Lozenge, Oral, Q4HPRN, Starting on Tue03/23/23 at 2104, Until Discontinu ed, Routine, Sore throat [facility] valsartan (DIOVAN) tablet 20 mg 03-24 01:00: 00 03-24 19:26 :33 No 20mg 20 mg, Oral, BID, First dose on Tue03/23/23 at 2000, Until Discontinu ed, Routine [facility] Sliding Scale Insulin - Lispro (HumaLOG) 03-23 22:00: 00 Yes Subcutaneo us, TID MEALS+HS, First dose (after last modificati on) on Tue03/23/23 at 1700, Until Discontinu ed, Routine [facility] carvediloL (COREG) tablet 12.5 mg 03-23 22:00: 00 03-26 19:08 :16 No 12.5mg 12.5 mg, Oral, BID MEALS, First dose on Tue03/23/23 at 1700, Until Discontinu ed, Routine [facility] phenoL (SORE THROAT (PHENOL)) 1.4 % spray bottle 1 [place] 03-22 20:03: 05 Yes 1{spray } 1 [place], Oral, PRN, Starting on Tue03/22/23 at 1503, Until Discontinu ed, Routine, Sore throat [facility] methocarbam oL (ROBAXIN) tablet 500 mg 03-22 19:36: 07 03-28 21:22 :55 No 500mg 500 mg, Oral, QIDPRN, Starting on Tue03/22/23 at 1436, Until Tue03/28/23 at 1622, Routine, Muscle Spasms [facility] acetaminoph en (TYLENOL) tablet 650 mg 03-22 19:35: 12 Yes 650mg 650 mg, Oral, Q6HPRN, Starting on Tue03/22/23 at 1435, Until Discontinu ed, Routine, Pain (scale 1-3) [facility] Sliding Scale Insulin - Lispro (HumaLOG) 03-22 17:00: 00 Yes Subcutaneo us, TID MEALS+HS, First dose (after last modificati on) on Tue03/22/23 at 1200, Until Discontinu ed, Routine [facility] acetaminoph en (TYLENOL) 325 mg Cap 03-22 14:07: 39 Yes Take by mouth as needed. [facility] insulin glargine (LANTUS U-100) injection 22 Units 03-22 14:00: 00 Yes 22U 22 Units, Subcutaneo us, DAILY, First dose (after last modificati on) on Tue03/22/23 at 0900, Until Discontinu ed, Routine [facility] spironolact one (ALDACTONE) tablet 25 mg 03-22 14:00: 00 Yes 25mg 25 mg, Oral, DAILY, First dose on Tue03/22/23 at 0900, Until Discontinu ed, Routine [facility] polyethylen e glycol 3350 powder 17 g 03-22 14:00: 00 03-28 21:22 :55 No 17g 17 g, Oral, DAILY, First dose on Tue03/22/23 at 0900, Until Discontinu ed, Routine [facility] pantoprazol e (PROTONIX) EC tablet 40 mg 03-22 14:00: 00 03-28 21:22 :55 No 40mg 40 mg, Oral, DAILY, First dose on Tue03/22/23 at 0900, Until Discontinu ed, Routine [facility] escitalopra m oxalate (LEXAPRO) tablet 10 mg 03-22 14:00: 00 03-28 21:22 :55 No 10mg 10 mg, Oral, DAILY, First dose on Tue03/22/23 at 0900, Until Discontinu ed, Routine [facility] aspirin EC tablet 81 mg 03-22 14:00: 00 03-28 21:22 :55 No 81mg 81 mg, Oral, DAILY, First dose on Tue03/22/23 at 0900, Until Discontinu ed, Routine [facility] furosemide (LASIX) injection 20 mg 03-22 14:00: 00 03-22 15:11 :00 No 20mg 20 mg, Slow IV Push, ONCE, 1 dose, On Tue03/22/23 at 0900, Routine [facility] metoprolol tartrate (LOPRESSOR) tablet 25 mg 03-22 13:15: 00 Yes 25mg 25 mg, Oral, BID, First dose (after last modificati on) on Tue03/22/23 at 0815, Until Discontinu ed, Routine [facility] calcium gluconate 2 g in NaCl 100 mL (ISO-OSM) RTU IV infusion 2 g 03-22 11:30: 00 03-22 11:19 :00 No 2g 2 g, IV Infusion, at 200 mL/hr Administer over 30 Minutes, ONCE, 1 dose, On Tue03/22/23 at 0630, Routine [facility] levothyroxi ne (SYNTHROID) tablet 25 mcg 03-22 11:00: 00 03-28 21:22 :55 No 25ug 25 mcg, Oral, QAM-0600, First dose on Tue03/22/23 at 0600, Until Discontinu ed, Routine [facility] glycopyrrol ate (ROBINUL) injection 0.4 mg 03-22 05:42: 13 Yes .4mg 0.4 mg, Slow IV Push, PRN - SEE INSTRUCTIO NS, Starting on Tue03/22/23 at 0042, Until Discontinu ed, Routine, HR < 45 [facility] glycopyrrol ate (ROBINUL) injection 0.2 mg 03-22 04:00: 23 03-22 05:30 :39 No .2mg 0.2 mg, Slow IV Push, PRN - SEE INSTRUCTIO NS, Starting on Tue03/21/23 at 2300, Until Tue03/22/23 at 0030, Routine, HR < 50 [facility] pravastatin (PRAVACHOL) tablet 80 mg 03-22 02:00: 00 03-28 21:22 :55 No 80mg 80 mg, Oral, QHS, First dose on Tue03/21/23 at 2100, Until Discontinu ed, Routine [facility] pramipexole (MIRAPEX) tablet 0.75 mg 03-22 02:00: 00 03-28 21:22 :55 No .75mg 0.75 mg, Oral, QHS, First dose on Tue03/21/23 at 2100, Until Discontinu ed, Routine [facility] traZODone (DESYREL) tablet 50 mg 03-22 02:00: 00 03-28 21:22 :55 No 50mg 50 mg, Oral, QHS, First dose on Tue03/21/23 at 2100, Until Discontinu ed, Routine [facility] pregabalin (LYRICA) capsule 50 mg 03-22 02:00: 00 03-28 21:22 :55 No 50mg 50 mg, Oral, QHS, First dose on Tue03/21/23 at 2100, Until Discontinu ed, Routine [facility] apixaban (ELIQUIS) tablet 5 mg 03-22 01:00: 00 Yes [id number] 5mg 5 mg, Oral, BID, First dose on Tue03/21/23 at 1999, Until Discontinu ed, Routine
Indicatio ns: DVT/PE [facility] ferrous sulfate tablet 325 mg 03-22 01:00: 00 03-28 21:22 :55 No 325mg 325 mg, Oral, QMON/TUE/ RI AT 1999, First dose on Tue03/21/23 at 1999, Until Discontinu ed, Routine [facility] Sliding Scale Insulin - Lispro (HumaLOG) 03-22 01:00: 00 03-22 12:12 :03 No Subcutaneo us, Q2H, First dose (after last modificati on) on Tue03/21/23 at 1999, Until Discontinu ed, Routine [facility] acetaminoph en ADULT (OFIRMEV) injection 1,000 mg 03-22 01:00: 00 03-22 15:32 :00 No 1000mg 1,000 mg, IV Infusion, at 400 mL/hr Administer over 15 Minutes, Q12H, 2 doses, First dose on Tue03/21/23 at 1999, Last dose on Tue03/22/23 at 0800, Routine
Indicatio n: Perioperat preston Patient [facility] metoprolol tartrate (LOPRESSOR) tablet 12.5 mg 03-22 01:00: 00 03-22 13:13 :52 No 12.5mg 12.5 mg, Oral, BID, First dose on Tue03/21/23 at 1999, Until Discontinu ed, Routine [facility] FENTanyl PF (SUBLIMAZE (PF)) injection 25 mcg 03-21 23:01: 04 03-22 19:36 :17 No 25ug 25 mcg, Slow IV Push, Q30MIN PRN, Starting on Tue03/21/23 at 1801, Until Tue03/22/23 at 1436, Routine, Pain (scale 7-10) [facility] labetaloL (NORMODYNE) injection 10 mg 03-21 22:44: 16 03-28 21:22 :55 No 10mg 10 mg, Slow IV Push, Q15MIN PRN, 4 doses, Starting on Tue03/21/23 at 1744, Until Tue03/28/23 at 1622, Routine, SBP > 160 [facility] furosemide (LASIX) tablet 40 mg 03-21 22:00: 00 Yes 40mg 40 mg, Oral, QAM+PM, First dose on Tue03/21/23 at 1700, Until Discontinu ed, Routine [facility] Sliding Scale Insulin - Lispro (HumaLOG) 03-21 22:00: 00 03-22 00:43 :44 No Subcutaneo us, TID MEALS+HS, First dose on Tue03/21/23 at 1700, Until Discontinu ed, Routine [facility] insulin regular human (HUMULIN R) injection 5 Units 03-21 22:00: 00 03-21 21:20 :00 No 5U 5 Units, IV Push, ONCE, 1 dose, On Tue03/21/23 at 1700, Routine
Indicatio n for insulin: Hyperglyce hermelindo [facility] dextrose 10% (D10W) bolus infusion [...] blood glucose is < 80 mg/dL, repeat.
[facility] glucagon (GLUCAGEN DIAGNOSTIC KIT) injection 1 mg 2022-03-21 21:34: 02 03-28 21:22 :55 No 1mg 1 mg, Intramuscu lar, PRN, Starting on Tue03/21/23 at 1634, Until Tue03/28/23 at 1622, GI, Blood Glucose < or = 70 mg/dL and patient is NPO, unable to swallow or has mental changes. [facility] dextrose 10% (D10W) bolus infusion [...] blood glucose is < 80 mg/dL, repeat.
[facility] glucagon (GLUCAGEN DIAGNOSTIC KIT) injection 1 mg 03-21 20:48: 37 03-28 21:22 :55 No 1mg 1 mg, Intramuscu lar, PRN, Starting on Tue03/21/23 at 1548, Until Tue03/28/23 at 1622, GI, Blood Glucose < or = 70 mg/dL and patient is NPO, unable to swallow or has mental changes. [facility] glucagon (GLUCAGEN DIAGNOSTIC KIT) injection 1 mg 2022-03-21 20:26: 10 03-28 21:22 :55 No 1mg 1 mg, Intramuscu lar, PRN, Starting on Tue03/21/23 at 1526, Until Tue03/28/23 at 1622, GI, Blood Glucose < or = 70 mg/dL and patient is NPO, unable to swallow or has mental changes. [facility] benzonatate (TESSALON PERLES) capsule 100 mg 03-21 20:24: 06 03-28 21:22 :55 No 100mg 100 mg, Oral, Q8HPRN, Starting on Tue03/21/23 at 1524, Until Tue03/28/23 at 1622, Routine, Cough [facility] lactated ringers IV infusion 1,000 mL 03-21 20:00: 00 03-22 13:47 :44 No 1000mL at 75 mL/hr, 1,000 mL, IV Infusion, CONTINUOUS , Starting on Tue03/21/23 at 1500, Until Tue03/22/23 at 0847, Routine, PACU [facility] proMETHazin e (PHENERGAN) 12.5 mg in NS 50 mL IV piggyback (CNR) 03-21 19:45: 13 Yes 12.5mg 12.5 mg, IV Piggyback, at 200 mL/hr Administer over 15 Minutes, PRN, 1 dose, Starting on Tue03/21/23 at 1445, Until Discontinu ed, Routine, Nausea and Vomiting (N/V), PACU [facility] iodixanoL (VISIPAQUE 270-150 mL) injection 03-21 19:17: 00 03-21 20:43 :02 No PRN, Starting on Tue03/21/23 at 1417, Until Tue03/21/23 at 1543, Routine, Intra-op [facility] sodium chloride 0.9 % irrigation solution 03-21 17:13: 00 03-21 20:43 :02 No PRN, Starting on Tue03/21/23 at 1213, Until Tue03/21/23 at 1543, Intra-op [facility] heparin 10,000 units in NS 1000 mL for vascular 03-21 17:13: 00 03-21 20:43 :02 No PRN, Starting on Tue03/21/23 at 1213, Intra-op [facility] aspirin (ASPIRIN LOW DOSE) 81 mg EC tablet 03-21 15:27: 18 Yes 81mg Take 1 tablet by mouth in the morning. [facility] latanoprost (XALATAN) 0.005 % ophthalmic drops 03-21 15:27: 18 Yes 1[drp] Place 1 Drop in both eyes every evening. [facility] latanoprost (XALATAN) 0.005 % ophthalmic drops 03-10 16:22: 15 Yes 1[drp] Place 1 Drop in both eyes every evening. [facility] aspirin (ASPIRIN LOW DOSE) 81 mg EC tablet 03-08 16:23: 30 Yes 81mg Take 1 tablet by mouth in the morning. [facility] traMADoL 50 mg tablet 03-08 00:00: 00 03-28 00:00 :00 No [id number] TAKE ONE (1) TABLET(S) BY MOUTH EVERY AT BEDTIME NEEDED FOR PAIN. Indication s: chronic pain [facility] PREGABALIN 50 mg capsule 03-02 00:00: 00 06-23 00:00 :00 No [id number] TAKE ONE (1) CAPSULE(S) BY MOUTH AT BEDTIME. [facility] TRAMADOL 50 mg tablet 03-02 00:00: 00 03-08 00:00 :00 No [id number] TAKE ONE (1) TABLET(S) BY MOUTH EVERY SIX HOURS NEEDED FOR PAIN. [facility] traZODone (DESYREL) tablet 50 mg 02-22 02:00: 00 Yes 50mg 50 mg, Oral, QHS, First dose on Tue02/21/23 at 2100, Until Discontinu ed, Routine [facility] melatonin (MELATIN) tablet 3 mg 02-22 02:00: 00 Yes 3mg 3 mg, Oral, QHS, First dose on Tue02/21/23 at 2100, Until Discontinu ed, Routine [facility] ferrous sulfate tablet 325 mg 02-22 01:00: 00 Yes 325mg 325 mg, Oral, QMON/TUE/ RI AT 1999, First dose on Tue02/21/23 at 2000, Until Discontinu ed, Routine [facility] aspirin (ASPIRIN LOW DOSE) 81 mg EC tablet 02-21 19:01: 07 Yes 81mg Take 1 tablet by mouth in the morning. [facility] latanoprost (XALATAN) 0.005 % ophthalmic drops 02-21 19:01: 07 Yes 1[drp] Place 1 Drop in both eyes every evening. [facility] tramadol HCl (TRAMADOL ORAL) 02-21 17:00: 48 02-21 00:00 :00 No Take by mouth. [facility] sulfur hexafluorid e microsphr (LUMASON) injection 5 mL 02-21 16:15: 00 02-21 16:15 :00 No [id number] 5mL 5 mL, Intravenou s, ONCE, 1 dose, On Tue02/21/23 at 1115, Routine
pricing/signage team member approving Restricted medication : JAMSHID EARLY [facility] pantoprazol e (PROTONIX) EC tablet 40 mg 02-21 14:00: 00 Yes 40mg 40 mg, Oral, DAILY, First dose on Tue02/21/23 at 0900, Until Discontinu ed, Routine [facility] insulin glargine (LANTUS U-100) injection 32 Units 02-21 14:00: 00 Yes 32U 32 Units, Subcutaneo us, DAILY, First dose on Tue02/21/23 at 0900, Until Discontinu ed [facility] escitalopra m oxalate (LEXAPRO) tablet 10 mg 02-21 14:00: 00 Yes 10mg 10 mg, Oral, DAILY, First dose on Tue02/21/23 at 0900, Until Discontinu ed, Routine [facility] aspirin EC tablet 81 mg 02-21 14:00: 00 Yes 81mg 81 mg, Oral, DAILY, First dose on Tue02/21/23 at 0900, Until Discontinu ed, Routine [facility] docusate (COLACE) capsule 100 mg 02-21 14:00: 00 Yes 100mg 100 mg, Oral, DAILY, First dose on Tue02/21/23 at 0900, Until Discontinu ed, Routine [facility] spironolact one (ALDACTONE) tablet 25 mg 02-21 13:00: 00 Yes 25mg 25 mg, Oral, BID, First dose on Tue02/21/23 at 0800, Until Discontinu ed, Routine [facility] pregabalin (LYRICA) capsule 50 mg 02-21 13:00: 00 Yes 50mg 50 mg, Oral, BID, First dose on Tue02/21/23 at 0800, Until Discontinu ed, Routine [facility] mupirocin (BACTROBAN OINT) 2 % skin ointment 02-21 13:00: 00 Yes [facility] metoprolol tartrate (LOPRESSOR) tablet 12.5 mg 02-21 13:00: 00 Yes 12.5mg 12.5 mg, Oral, BID, First dose on Tue02/21/23 at 0800, Until Discontinu ed, Routine [facility] baclofen (LIORESAL) tablet 10 mg 02-21 13:00: 00 Yes 10mg 10 mg, Oral, TID, First dose on Tue02/21/23 at 0800, Until Discontinu ed, Routine [facility] apixaban (ELIQUIS) tablet 5 mg 02-21 13:00: 00 Yes [id number] 5mg 5 mg, Oral, BID, First dose on Tue02/21/23 at 0800, Until Discontinu ed, Routine
Indicatio ns: Non-Valvul ar Atrial Fibrillati on [facility] levothyroxi ne (SYNTHROID) tablet 25 mcg 02-21 11:00: 00 Yes 25ug 25 mcg, Oral, QAM-0600, First dose on Tue02/21/23 at 0600, Until Discontinu ed, [facility]ine [facility] furosemide (LASIX) tablet 40 mg 02-21 11:00: 00 Yes 40mg 40 mg, Oral, BID AT 0600 - 1800, First dose on Tue02/21/23 at 0600, Until Discontinu ed, Routine [facility] benzonatate (TESSALON PERLES) capsule 100 mg 02-21 11:00: 00 Yes 100mg 100 mg, Oral, Q8H, First dose on Tue02/21/23 at 0600, Until Discontinu ed, Routine [facility] FENTanyl PF (SUBLIMAZE (PF)) injection 25 mcg 02-21 06:55: 31 Yes 25ug 25 mcg, Slow IV Push, Q6HPRN, Starting on Tue02/21/23 at 0155, Until Discontinu ed, Routine, Pain (scale 4-6), Pain (scale 7-10) [facility] nystatin (NYSTOP) powder 02-21 06:10: 18 Yes Topical, TIDPRN, Starting on Tue02/21/23 at 0110, Until Discontinu ed, Routine, fungal rash [facility] NaCl 0.9% (NS) IV infusion 1,000 mL 02-21 04:30: 00 Yes 1000mL at 50 mL/hr, IV Infusion, CONTINUOUS , Starting on Tue02/20/23 at 2330, Until Discontinu ed, Routine [facility] ondansetron (ZOFRAN (PF)) injection 4 mg 02-21 04:17: 30 Yes 4mg 4 mg, Slow IV Push, Q6HPRN, Starting on Tue02/20/23 at 2317, Until Discontinu ed, Routine, Nausea and Vomiting (N/V) [facility] acetaminoph en (TYLENOL) tablet 650 mg 02-21 04:17: 11 Yes 650mg 650 mg, Oral, Q6HPRN, Starting on Tue02/20/23 at 2317, Until Discontinu ed, Routine, Pain (scale 1-3) [facility] FUROSEMIDE 40 mg tablet 02-03 00:00: 06-24 00:00 :00 No [id number] TAKE ONE (1) TABLET BY MOUTH EVERY MORNING AND EVENING. [facility] BACLOFEN 10 mg tablet 02-03 00:00: 00 04-19 00:00 :00 No [id number] TAKE ONE (1) TABLET(S) BY MOUTH THREE TIMES A DAY NEEDED. MAY MAKE YOU SLEEPY. [facility] TRAMADOL 50 mg tablet 01-28 00:00: 00 03-02 00:00 :00 No [id number] TAKE ONE (1) TABLET(S) BY MOUTH EVERY SIX HOURS NEEDED FOR PAIN. [facility] azelastine 137 mcg (0.1 %) nasal spray 01-18 00:00: 00 Yes [id number] 1{spray } Use 1 [place] in each nostril in the morning and 1 [place] in the evening. Use in each nostril as directed [facility] nystatin (NYSTOP) 100,000 unit/gram powder 01-18 00:00: 00 04-19 00:00 :00 No [id number] Apply to area(s) 3 (three) times daily as needed for Rash. [facility] FUROSEMIDE 40 mg tablet 01-05 00:00: 00 02-03 00:00 :00 No [id number] TAKE ONE (1) TABLET BY MOUTH EVERY MORNING AND EVENING. [facility] apixaban 5 mg tablet 12-24 00:00: 00 05-09 00:00 :00 No [id number] 5mg Take 1 tablet by mouth in the morning and 1 tablet in the evening. Indication s: history of venous thromboemb olism [facility] traMADoL 50 mg tablet 12-23 00:00: 00 01-28 00:00 :00 No [id number] TAKE ONE (1) TABLET(S) BY MOUTH EVERY SIX HOURS NEEDED FOR PAIN. [facility] tramadol HCl (TRAMADOL ORAL) 12-21 10:44: 23 Yes Take by mouth. [facility] cefTRIAXone (ROCEPHIN) injection 1,000 mg 12-09 16:00: 00 12-09 15:17 :00 No [id number] 1000mg [facility] pramipexole 0.75 mg tablet 12-09 00:00: 00 Yes [id number] .75mg Take 1 tablet by mouth at bedtime. [facility] pramipexole 0.75 mg tablet 12-09 00:00: 00 12-21 00:00 :00 No [id number] .75mg Take 1 tablet by mouth at bedtime. [facility] cefdinir 300 mg capsule 12-09 00:00: 00 01-18 00:00 :00 No [id number] 300mg Take 1 capsule by mouth every 12 (twelve) hours. [facility] semaglutide (OZEMPIC) 2 mg/dose (8 mg/3 mL) PnIj 11-30 00:00: 00 02-21 00:00 :00 No [id number] INJECT TWO (2) MG UNDER THE SKIN ONCE WEEKLY. [facility] SPIRONOLACT ONE 25 mg tablet 10-28 00:00: 00 04-19 00:00 :00 No [id number] TAKE ONE (1) TABLET(S) BY MOUTH EVERY DAY. [facility] pramipexole 0.5 mg tablet 10-28 00:00: 00 12-09 00:00 :00 No [id number] .5mg Take 1 tablet by mouth at bedtime. May take a second tablet if symptoms have not improved. [facility] traMADoL 50 mg tablet 10-28 00:00: 00 11-05 04:59 :00 No [id number] 50mg Take 1 tablet by mouth every 6 (six) hours as needed for Pain (scale 4-6) for up to 7 days. Indication s: chronic pain [facility] BACLOFEN 10 mg tablet 10-14 00:00: 02-03 00:00 :00 No [id number] TAKE ONE (1) TABLET(S) BY MOUTH THREE TIMES A DAY NEEDED. MAY MAKE YOU SLEEPY. [facility] aspirin (ASPIRIN LOW DOSE) 81 mg EC tablet 09-28 10:56: 40 Yes 81mg Take 1 tablet by mouth in the morning. [facility] pantoprazol e 40 mg EC tablet 09-28 00:00: 00 04-19 00:00 :00 No [id number] 40mg Take 1 tablet by mouth in the morning. [facility] Non-Adheren t Bandage (CURAD NON-STICK PAD) 3 X 4 " Bndg 09-28 00:00: 00 04-19 00:00 :00 No [id number] Use as directed [facility] levothyroxi ne 25 mcg tablet 09-28 00:00: 00 04-19 00:00 :00 No [id number] 25ug Take 1 tablet by mouth every morning. [facility] honey (MEDIHONEY, HONEY,) 80 % 09-28 00:00: 00 12-09 00:00 :00 No [id number] 5mg Apply 5 mg to area(s) in the morning. [facility] aspirin (ASPIRIN LOW DOSE) 81 mg EC tablet 09-07 14:41: 12 Yes 81mg Take 1 tablet by mouth in the morning. [facility] FUROSEMIDE 40 mg tablet 09-07 00:00: 00 01-05 00:00 :00 No [id number] TAKE ONE (1) TABLET BY MOUTH EVERY MORNING AND EVENING. [facility] pravastatin 80 mg tablet 09-06 00:00: 00 04-19 00:00 :00 No [id number] 80mg Take 1 tablet by mouth at bedtime. [facility] spironolact one 25 mg tablet 09-04 00:00: 00 10-28 00:00 :00 No 25mg Take 1 tablet by mouth in the morning. [facility] BENZONATATE 100 mg capsule 3-03 00:00: 00 11-10 00:00 :00 No [id number] TAKE ONE (1) OR TWO (2) CAPSULE(S) BY MOUTH EVERY EIGHT HOURS NEEDED FOR COUGH. [facility] aspirin (ASPIRIN LOW DOSE) 81 mg EC tablet 08-31 11:35: 12 Yes 81mg Take 1 tablet by mouth in the morning. [facility] latanoprost (XALATAN) 0.005 % ophthalmic drops 08-31 11:35: 12 Yes 1[drp] Place 1 Drop in both eyes every evening. [facility] escitalopra m oxalate 10 mg tablet 08-31 00:00: 00 08-22 00:00 :00 No [id number] 10mg Take 1 tablet by mouth in the morning. [facility] insulin degludec 100 unit/mL Soln 08-31 00:00: 00 05-16 00:00 :00 No [id number] 32U inject 32 Units under the skin in the morning. Morning [facility] pregabalin 50 mg capsule 08-31 00:00: 00 03-02 00:00 :00 No [id number] 50mg Take 1 capsule by mouth in the morning and 1 capsule in the evening. [facility] TRESIBA FLEXTOUCH U-100 100 unit/mL (3 mL) InPn 08-24 00:00: 00 02-21 00:00 :00 No INJECT 30 UNIT(S) UNDER THE SKIN EVERY MORNING. [facility] azelastine 137 mcg (0.1 %) nasal spray 08-13 00:00: 00 01-18 00:00 :00 No [id number] 1{spray } Use 1 [place] in each nostril in the morning and 1 [place] in the evening. Use in each nostril as directed [facility] BACLOFEN 10 mg tablet 08-12 00:00: 00 10-14 00:00 :00 No [id number] TAKE ONE (1) TABLET(S) BY MOUTH THREE TIMES A DAY NEEDED. MAY MAKE YOU SLEEPY. [facility] spironolact one 25 mg tablet 2-08 00:00: 00 09-20 00:00 :00 No 25mg Take 1 tablet by mouth in the morning. [facility] lisinopriL 5 mg tablet -30 00:00: 00 09-28 00:00 :00 No TAKE ONE (1) TABLET BY MOUTH IN THE MORNING. [facility] traZODone 50 mg tablet 07-30 00:00: 00 07-19 00:00 :00 No [id number] 50mg Take 1 tablet by mouth at bedtime. [facility] metoprolol tartrate 25 mg tablet 17 00:00: 00 12-08 00:00 :00 No [id number] 12.5mg Take 0.5 tablets by mouth in the morning and 0.5 tablets in the evening. [facility] fluticasone propionate 50 mcg/actuati on nasal spray 07-15 00:00: 00 Yes [id number] 2{spray } Use 2 Sprays in each nostril once daily as needed. [facility] benzonatate 100 mg capsule 07-15 00:00: 00 09-03 00:00 :00 No [id number] 100mg Take 1 capsule by mouth every 8 (eight) hours as needed for Cough. May take 1-2 capsules [facility] traZODone 50 mg tablet -12 00:00: 00 07-30 00:00 :00 No [id number] 50mg Take 1 tablet by mouth at bedtime. [facility] melatonin (MELATIN) tablet 3 mg 07-06 03:00: 00 Yes 3mg 3 mg, Oral, QHS, First dose on Tue07/05/22 at 2100, Until Discontinu ed, Routine [facility] traZODone (DESYREL) tablet 100 mg 07-06 03:00: 00 Yes 100mg 100 mg, Oral, QHS, First dose (after last modificati on) on Tue07/05/22 at 2100, Until Discontinu ed, [facility] f[facility] (LASIX) tablet 40 mg 07-05 23:00: 00 Yes 40mg 40 mg, Oral, QAM+PM, First dose on Tue07/05/22 at 1700, Until Discontinu ed, Routine [facility] aspirin (ASPIRIN LOW DOSE) 81 mg EC tablet 07-05 17:22: 16 Yes 81mg Take 81 mg by mouth daily. [facility] latanoprost (XALATAN) 0.005 % ophthalmic drops 07-05 17:22: 16 Yes 1[drp] Place 1 Drop in both eyes every evening. [facility] mupirocin 2 % ointment 07-05 00:00: 00 04-19 00:00 :00 No [id number] Apply to area(s) 3 (three) times daily. As needed [facility] melatonin 3 mg tablet 07-05 00:00: 00 04-12 00:00 :00 No [id number] 3mg Take 1 tablet by mouth at bedtime. [facility] docusate 100 mg capsule 07-05 00:00: 00 02-21 00:00 :00 No [id number] 100mg Take 1 capsule by mouth in the morning and 1 capsule in the evening. [facility] metoprolol tartrate 75 mg Tab 07-05 00:00: 00 07-15 00:00 :00 No [id number] 75mg Take 75 mg by mouth 2 (two) times daily for 30 days. [facility] benzonatate 100 mg capsule 07-05 00:00: 00 07-15 00:00 :00 No [id number] 100mg Take 1 capsule by mouth every 8 (eight) hours as needed for Cough. [facility] traZODone 50 mg tablet 07-05 00:00: 00 07-15 00:00 :00 No [id number] 50mg Take 1 tablet by mouth at bedtime for 30 days. [facility] furosemide (LASIX) injection 40 mg 07-04 14:00: 00 07-05 14:47 :21 No 40mg 40 mg, Slow IV Push, Q12H, First dose (after last modificati on) on Tue07/04/22 at 0800, Until Discontinu ed, Routine [facility] traZODone (DESYREL) tablet 50 mg 07-04 03:00: 00 07-05 17:04 :22 No 50mg 50 mg, Oral, QHS, First dose on 07/03/22 at 2100, Until Discontinu ed, Routine [facility] KCL (KLOR-CON M20) tablet 40 mEq 2021-07 21:45: 00 Yes 40meq 40 mEq, Oral, BID, First dose (after last reorder) on 07/03/22 at 1545, Until Discontinu ed, Routine [facility] KCL (KLOR-CON M20) tablet 40 mEq 2021-07 16:15: 00 07-02 17:19 :00 No 40meq 40 mEq, Oral, ONCE, 1 dose, On Tue07/02/22 at 1015, Routine [facility] ceFEPIme (MAXIPIME) 1,000 mg in NaCl [...] ion of therapy: 5 days [facility] metoprolol tartrate (LOPRESSOR) tablet 75 mg 2021-07 14:00: 00 Yes 75mg 75 mg, Oral, BID, First dose (after last modificati on) on Devika 07/01/22 at 0800, Until Discontinu ed, Routine [facility] ceFEPIme (MAXIPIME) 1,000 mg in NaCl [...] y
Durat ion of therapy: 5 days [facility] digoxin (LANOXIN) injection 250 mcg 2021-07 21:00: 00 06-30 21:27 :00 No 250ug 250 mcg, Intravenou s, ONCE, 1 dose, On Tue06/30/22 at 1500, Routine [facility] furosemide (LASIX) injection 40 mg 2021-07 20:00: 00 07-03 21:32 :30 No 40mg 40 mg, Slow IV Push, Q8H, First dose (after last modificati on) on Tue06/30/22 at 1400, Until Discontinu ed, Routine [facility] vancomycin 1,250 mg in NaCl 0.9% (NS) [...] y
Durat ion of therapy: 5 days [facility] ceFEPIme (MAXIPIME) 1,000 mg in NaCl 0.9% (NS) 50 mL MINI-BAG 2021-07 18:00: 00 06-30 19:23 :00 No 1000mg 1,000 mg, IV Piggyback, ONCE, 1 dose, On Tue06/30/22 at 1200, Administer over 30 Minutes, 50 mL
Reas on for Anti-Infec tive: Empiric Therapy for Suspected Infection< br>Empiric Therapy Site: Respirator y
Durat ion of therapy: 72 hours [facility] lactobacill us acidophilus tablet 1 mg 2021-07 17:15: 00 Yes 1mg 1 mg, Oral, BID, First dose on Tue06/30/22 at 1115, Until Discontinu ed, Routine [facility] bisacodyL (DULCOLAX) suppository 10 mg 2021-07 15:15: 00 06-30 15:26 :00 No 10mg 10 mg, Rectal, ONCE, 1 dose, On Tue06/30/22 at 0915, Routine [facility] polyethylen e glycol 3350 powder 17 g 2021-07 15:00: 00 07-02 14:10 :00 No 17g 17 g, Oral, DAILY, 3 doses, First dose on Tue06/30/22 at 0900, Last dose on Tue07/02/22 at 0900, Routine [facility] KCL (KLOR-CON M20) tablet 20 mEq 2021-07 14:45: 00 06-30 15:26 :00 No 20meq 20 mEq, Oral, ONCE, 1 dose, On Tue06/30/22 at 0845, Routine [facility] sennosides (SENOKOT) tablet 8.6 mg 2021-07 14:30: 00 Yes 8.6mg 8.6 mg, Oral, BID, First dose on Tue06/30/22 at 0830, Until Discontinu ed, [facility] docusate (COLACE) capsule 100 mg 2021-07 14:30: 00 Yes 100mg 100 mg, Oral, BID, First dose on Tue06/30/22 at 0830, Until Discontinu ed, Routine [facility] digoxin (LANOXIN) injection 500 mcg 2021-07 14:15: 00 06-30 13:27 :00 No 500ug 500 mcg, Intravenou s, ONCE, 1 dose, On Tue06/30/22 at 0815, Routine [facility] metoprolol tartrate (LOPRESSOR) tablet 50 mg 2021-07 14:00: 00 07-01 13:55 :27 No 50mg 50 mg, Oral, BID, First dose (after last modificati on) on Tue06/30/22 at 0800, Until Discontinu ed, Routine [facility] furosemide (LASIX) injection 40 mg 2021-07 14:00: 00 06-30 14:36 :33 No 40mg 40 mg, Slow IV Push, Q12H, First dose (after last modificati on) on Tue06/30/22 at 0800, Until Discontinu ed, Routine [facility] metoprolol (LOPRESSOR) injection 5 mg 2021-07 12:33: 00 06-30 12:34 :00 No 5mg 5 mg, Intravenou s, ONCE NOW, 1 dose, On Tue06/30/22 at 0645, GI [facility] ipratropium -albuteroL (DUONEB) 0.5 mg-3 mg(2.5 mg base)/3 mL nebulizer solution 3 mL 2021-07 12:14: 50 Yes 3mL 3 mL, Inhalation , Q6HPRN, Starting on Tue06/30/22 at 0614, Until Discontinu ed, Routine, Wheezing [facility] metoprolol tartrate (LOPRESSOR) tablet 25 mg 2021-07 02:00: 00 06-30 12:36 :09 No 25mg 25 mg, Oral, BID, First dose (after last modificati on) on Tue06/29/22 at 2000, Until Discontinu ed, Routine [facility] guaiFENesin (FENESIN IR) tablet 400 mg 2021-07 00:15: 00 Yes 400mg 400 mg, Oral, Q6H, First dose on Tue06/29/22 at 1815, Until Discontinu ed, Routine [facility] benzocaine- menthoL (CEPACOL SORE THROAT (JYOTSNA-MEN)) lozenge 1 Lozenge 2021-07 00:15: 00 Yes 1{lozen ge} 1 Lozenge, Oral, Q6H, First dose on Tue06/29/22 at 1815, Until Discontinu ed, Routine [facility] levalbutero l (XOPENEX) nebulizer solution 0.63 mg 2021-07 00:00: 00 Yes .63mg 0.63 mg, Inhalation , QID, First dose on Tue06/29/22 at 1800, Until Discontinu ed, Routine [facility] furosemide (LASIX) injection 20 mg 2021-07 14:00: 00 06-30 13:15 :52 No 20mg 20 mg, Slow IV Push, Q12H, First dose on Tue06/29/22 at 0800, Until Discontinu ed, Routine [facility] metoclopram cory HCl (REGLAN) injection 10 mg 2021-07 06:26: 57 Yes 10mg 10 mg, Slow IV Push, TIDPRN, Starting on Tue06/29/22 at 0026, Until Discontinu ed, Routine, Nausea and Vomiting (N/V) [facility] NaCl 0.9% (NS) IV infusion 1,000 mL 2021-07 00:00: 00 06-29 13:03 :24 No 1000mL at 80 mL/hr, IV Infusion, CONTINUOUS , Starting on Tue06/27/22 at 1800, Until Tue06/29/22 at 0703, Routine [facility] ondansetron (ZOFRAN (PF)) injection 4 mg 2021-07 22:23: 48 Yes 4mg 4 mg, Slow IV Push, Q6HPRN, Starting on Tue06/27/22 at 1623, Until Discontinu ed, GI, Nausea and Vomiting (N/V) [facility] cefTRIAXone (ROCEPHIN) 1,000 mg [...]
D uration of Therapy: Other (see Comments) [facility] pantoprazol e (PROTONIX) EC tablet 40 mg 2021-07 15:00: 00 Yes 40mg 40 mg, Oral, DAILY, First dose on 06/27/22 at 0900, Until Discontinu ed, Routine [facility] escitalopra m oxalate (LEXAPRO) tablet 10 mg 2021-07 15:00: 00 Yes 10mg 10 mg, Oral, DAILY, First dose on 06/27/22 at 0900, Until Discontinu ed, Routine [facility] aspirin EC tablet 81 mg 2021-07 15:00: 00 Yes 81mg 81 mg, Oral, DAILY, First dose on 06/27/22 at 0900, Until Discontinu ed, Routine [facility] levothyroxi ne (SYNTHROID) tablet 25 mcg 2021-07 12:00: 00 Yes 25ug 25 mcg, Oral, QAM-0600, First dose on 06/27/22 at 0600, Until Discontinu ed, Routine [facility] benzonatate (TESSALON PERLES) capsule 100 mg 2021-07 11:55: 14 Yes 100mg 100 mg, Oral, Q8HPRN, Starting on 06/27/22 at 0555, Until Discontinu ed, Routine, Cough [facility] baclofen (LIORESAL) tablet 10 mg 2021-07 05:31: 57 Yes 10mg 10 mg, Oral, TIDPRN, Starting on 06/26/22 at 2331, Until Discontinu ed, Routine, for restless legs, may make you sleepy [facility] traMADoL (ULTRAM) tablet 50 mg 2021-07 05:31: 44 Yes 50mg 50 mg, Oral, Q8HPRN, Starting on 06/26/22 at 2331, Until Discontinu ed, Routine, Pain (scale 4-6) [facility] pregabalin (LYRICA) capsule 50 mg 2021-07 03:00: 00 Yes 50mg 50 mg, Oral, QHS, First dose on 06/26/22 at 2100, Until Discontinu ed, Routine [facility] pramipexole (MIRAPEX) tablet 0.5 mg 2021-07 03:00: 00 Yes .5mg 0.5 mg, Oral, QHS, First dose on [facility] 06/26/22 at 2100, Until Discontinu ed, Routine [facility] Sliding Scale Insulin - Lispro (HumaLOG) + Fsbg Testing 2021-07 02:00: 00 Yes Subcutaneo us, Q4H, First dose on 06/26/22 at 2000, Until Discontinu ed, Routine [facility] apixaban (ELIQUIS) tablet 5 mg 2021-07 02:00: 00 Yes [id number] 5mg 5 mg, Oral, BID, First dose on 06/26/22 at 2000, Until Discontinu ed, Routine
Indicatio ns: Non-Valvul ar Atrial Fibrillati on [facility] metoprolol tartrate (LOPRESSOR) tablet 12.5 mg 2021-07 02:00: 00 06-29 23:04 :26 No 12.5mg 12.5 mg, Oral, BID, First dose on 06/26/22 at 2000, Until Discontinu ed, Routine [facility] dextrose 10% (D10W) bolus infusion [...] blood glucose is < 80 mg/dL, repeat.
[facility] glucagon (GLUCAGEN DIAGNOSTIC KIT) injection 1 mg 2021-07 01:00: 08 Yes 1mg 1 mg, Intramuscu lar, PRN, Starting on 06/26/22 at 1900, Until Discontinu ed, GI, Blood Glucose < or = 70 mg/dL and patient is unable to swallow or has mental changes. [facility] D5W 0.9% NaCl (NS) IV infusion 1,000 mL 2021-07 01:00: 00 06-27 22:43 :57 No 1000mL at 42 mL/hr, 1,000 mL, IV Infusion, CONTINUOUS , Starting on 06/26/22 at 1900, Until 06/27/22 at 1643, Routine [facility] latanoprost (XALATAN) 0.005 % ophthalmic drops 1 Drop 2021-07 00:00: 00 Yes 1[drp] 1 Drop, Both Eyes, QPM, First dose on 06/26/22 at 1800, Until Discontinu ed, Routine [facility] acetaminoph en (TYLENOL) tablet 650 mg 2021-07 23:50: 15 Yes 650mg 650 mg, Oral, Q6HPRN, Starting on 06/26/22 at 1750, Until Discontinu ed, Routine, Pain (scale 1-3) [facility] ondansetron (ZOFRAN (PF)) injection 4 mg 2021-07 19:15: 00 06-26 18:41 :00 No 4mg 4 mg, Slow IV Push, ONCE, 1 dose, On 06/26/22 at 1315, GI [facility] blood sugar diagnostic (ACCU-CHEK PHILLIP) strip 2021-07 00:00: 00 Yes [id number] Take sugars 3 times a day, DX E11.9 [facility] blood sugar diagnostic (ACCU-CHEK PHILLIP) strip 2021-07 00:00: 00 04-19 00:00 :00 No [id number] Take sugars 3 times a day, DX E11.9 [facility] escitalopra m oxalate 10 mg tablet 2021-07 00:00: 00 08-31 00:00 :00 No [id number] 10mg Take 1 tablet by mouth in the morning. [facility] pregabalin 50 mg capsule 2021-07 00:00: 00 08-31 00:00 :00 No [id number] 50mg Take 1 capsule by mouth at bedtime. [facility] metoprolol tartrate 25 mg tablet 2021-07 00:00: 00 07-05 00:00 :00 No [id number] 12.5mg Take 0.5 tablets by mouth in the morning and 0.5 tablets in the evening. [facility] baclofen 10 mg tablet 2021-07 00:00: 00 08-12 00:00 :00 No [id number] 9104 10mg Take 1 tablet by mouth 3 (three) times daily as needed for Pain (scale 4-6) (for restless legs, may make you sleepy). [facility] KLOR-CON 10 10 mEq CR tablet 2021-07 00:00: 00 10-28 00:00 :00 No [id number] TAKE 1 TABLET BY MOUTH ONCE DAILY NEEDED FOR OTHER (TAKE WHEN INCREASING LASIX DOSE). [facility] furosemide 40 mg tablet 2021-07 0-20 00:00: 00 09-07 00:00 :00 No [id number] 40mg Take 1 tablet by mouth every morning and evening. [facility] flash glucose scanning reader (FREESTYLE KANDI 14 DAY READER) [facility] [place]07 00:00: 00 06-26 00:00 :00 No [id number] 1{each} inject 1 Each under the skin every 14 (fourteen) days. [facility] flash glucose sensor (FREESTYLE KANDI 2 SENSOR) Kit 2021-07 00:00: 00 06-26 00:00 :00 No [id number] 1{each} inject 1 Each under the skin every 14 (fourteen) days. Change 1 sensor every 14 days [facility] lisinopriL 5 mg tablet 2021-07 00:00: 00 05-10 00:00 :00 No [id number] 5mg Take 1 tablet by mouth in the morning. [facility] FREESTYLE KANDI 14 DAY READER [facility] [place]-07 00:00: 00 04-22 00:00 :00 No [id number] USE WITH SENSOR TO CHECK BLOOD SUGAR FOUR TIMES DAILY DIRECTED [facility] semaglutide (OZEMPIC) 2 mg/dose (8 mg/3 mL) PnIj 03-29 00:00: 00 11-30 00:00 :00 No [id number] 2mg inject 2 mg under the skin weekly. [facility] baclofen 10 mg tablet 03-25 00:00: 00 06-01 00:00 :00 No [id number] 9104 10mg Take 1 tablet by mouth 3 (three) times daily as needed for Pain (scale 4-6) (for restless legs, may make you sleepy). [facility] flash glucose scanning reader (FREESTYLE KANDI 14 DAY READER) [facility] [place]-25 00:00: 00 04-13 00:00 :00 No 1{appli cator} 1 Applicator 4 (four) times daily. Check glucose qid as directed [facility] FREESTYLE KANDI 2 SENSOR Kit 03-24 00:00: 00 04-22 00:00 :00 No [id number] CHANGE 1 SENSOR EVERY 14 DAYS [facility] BACLOFEN 10 mg tablet 03-23 00:00: 00 03-25 00:00 :00 No [id number] 9104 10mg TAKE 1 TABLET BY MOUTH 3 (THREE) TIMES DAILY NEEDED FOR PAIN (SCALE 4-6) (FOR RESTLESS LEGS, MAY MAKE YOU SLEEPY). [facility] apixaban 5 mg tablet 03-19 00:00: 00 12-24 00:00 :00 No [id number] 5mg Take 1 tablet by mouth in the morning and 1 tablet in the evening. Indication s: history of venous thromboemb olism [facility] flash glucose sensor (FREESTYLE KANDI 2 SENSOR) Kit 03-16 00:00: 00 03-24 00:00 :00 No [id number] 9109 1{each} 1 Each every 14 (fourteen) days. [facility] flash glucose sensor (FREESTYLE KANDI 2 SENSOR) Kit 03-15 00:00: 00 03-16 00:00 :00 No [id number] 1{each} 1 Each every 7 (seven) days. Apply every 10 days [facility] insulin aspart U-100 100 unit/mL (3 mL) injection 02-25 00:00: 00 07-05 00:00 :00 No [id number] INJECT 12 U SUBCUTANEO USLY WITH BREAKFAST, 14 U WITH LUNCH/DINN ER DAILY [facility] potassium chloride 10 mEq CR tablet 02-25 00:00: 00 05-31 00:00 :00 No [id number] 10meq Take 1 tablet by mouth once daily as needed for Other (Take when increasing Lasix dose). [facility] flash glucose scanning reader (FREESTYLE KANDI 14 DAY READER) [facility] [place]-25 00:00: 00 03-25 00:00 :00 No [id number] 1{appli cator} 1 Applicator 4 (four) times daily. Check glucose qid as directed [facility] baclofen 10 mg tablet 02-25 00:00: 00 03-23 00:00 :00 No [id number] 9104 10mg Take 1 tablet by mouth 3 (three) times daily as needed for Pain (scale 4-6) (for restless legs, may make you sleepy). [facility] rivaroxaban 20 mg tablet 02-25 00:00: 00 03-19 00:00 :00 No [id number] 20mg Take 1 tablet by mouth in the morning. Indication s: blood clot formation in vein [facility] flash glucose sensor (FREESTYLE KANDI 14 DAY SENSOR) Kit 02-25 00:00: 00 03-15 00:00 :00 No [id number] 1{appli cator} 1 Applicator 4 (four) times daily. Check glucose qid as directed [facility] aspirin (ASPIRIN LOW DOSE) 81 mg EC tablet 02-20 12:17: 44 Yes 81mg Take 81 mg by mouth daily. [facility] latanoprost , PF, 0.005 % Drop 02-20 12:17: 44 Yes 1[drp] Place 1 Drop in both eyes at bedtime. [facility] insulin degludec (TRESIBA U-100 INSULIN) 100 unit/mL Soln 02-20 00:00: 00 08-31 00:00 :00 No [id number] 30U inject 30 Units under the skin daily. Morning [facility] metoprolol tartrate 25 mg tablet 02-20 00:00: 00 06-08 00:00 :00 No [id number] 12.5mg Take 0.5 tablets by mouth in the morning and 0.5 tablets in the evening. [facility] flash glucose scanning reader (FREESTYLE KANDI 14 DAY READER) Misc 02-20 00:00: 00 02-25 00:00 :00 No [id number] 1{appli cator} 1 Applicator 4 (four) times daily. Check glucose qid as directed [facility] flash glucose sensor (FREESTYLE KANDI 14 DAY SENSOR) Kit 8 00:00: 00 02-25 00:00 :00 No [id number] 1{appli cator} 1 Applicator 4 (four) times daily. Check glucose qid as directed [facility] ferrous sulfate 325 mg (65 mg iron) tablet 02-01 00:00: 00 05-10 00:00 :00 No [id number] 325mg Take 1 tablet by mouth every Tuesday, and Tuesday in the evening. [facility] escitalopra m oxalate 10 mg tablet 02-01 00:00: 00 06-08 00:00 :00 No [id number] 10mg Take 1 tablet by mouth in the morning. [facility] pregabalin 50 mg capsule 02-01 00:00: 00 06-08 00:00 :00 No [id number] 50mg Take 1 capsule by mouth at bedtime. [facility] rivaroxaban 20 mg tablet 02-01 00:00: 00 02-25 00:00 :00 No [id number] 20mg Take 1 tablet by mouth in the morning. Indication s: blood clot formation in vein [facility] insulin aspart U-100 (NOVOLOG FLEXPEN U-100 INSULIN) 100 unit/mL (3 mL) injection 02-01 00:00: 00 02-25 00:00 :00 No [id number] INJECT 10 U SUBCUTANEO USLY WITH BREAKFAST, 12 U WITH LUNCH/DINN ER DAILY [facility] mupirocin 2 % ointment 7 00:00: 00 07-05 00:00 :00 No [id number] Apply to area(s) 3 (three) times daily. [facility] pantoprazol e 40 mg EC tablet 4-24 00:00: 00 Yes [id number] 40mg Take 1 tablet by mouth in the morning. [facility] polyethylen e glycol 3350 (MIRALAX) 17 gram/dose powder 10-25 00:00: 00 Yes [id number] 17g Take 17 g by mouth in the morning. [facility] levothyroxi ne 25 mcg tablet 10-25 00:00: 00 11-10 00:00 :00 No [id number] 25ug Take 1 tablet by mouth every morning. [facility] pramipexole 0.5 mg tablet 10-24 00:00: 00 10-28 00:00 :00 No [id number] .5mg Take 1 tablet by mouth at bedtime. [facility] pramipexole 0.5 mg tablet 10-24 00:00: 00 10-28 00:00 :00 No [id number] .5mg Take 1 tablet by mouth at bedtime. [facility] pravastatin 80 mg tablet 10-24 00:00: 00 09-06 00:00 :00 No [id number] 80mg Take 1 tablet by mouth at bedtime. [facility] furosemide 40 mg tablet 10-24 00:00: 00 04-22 00:00 :00 No [id number] 40mg Take 1 tablet by mouth every morning and evening. [facility] NYSTOP 100,000 unit/gram powder 2020-07 00:00: 00 01-18 00:00 :00 No [facility] NYSTOP 100,000 unit/gram powder 2020-07 00:00: 00 01-18 00:00 :00 No [facility] Lancets (ACCU-CHEK MULTICLIX LANCET) [facility] [place]-20 00:00: 00 Yes [id number] Use as directed [facility] Lancets (ACCU-CHEK MULTICLIX LANCET) [facility] [place]-20 00:00: 00 04-19 00:00 :00 No [id number] Use as directed [facility] Insulin Syringe-Nee dle U-100 0.3 mL 30 gauge x 1/2" Syrg 03-20 00:00: 00 05-10 00:00 :00 No [id number] Use as directed [facility] Insulin Syringe-Nee dle U-100 0.3 mL 30 gauge x 1/2" Syrg 03-20 00:00: 00 05-10 00:00 :00 No [id number] Use as directed [facility] MULTIVITAMI N ORAL 03-19 09:03: 41 03-19 00:00 :00 No 1000mg Take by mouth. [facility] calcium, magnesium, zinc, prescribed by Dr. Dc. [facility] Insulin Hepzibah, Disposable, (BD INSULIN PEN NEEDLE UF) 29 gauge x 1/2" [facility] 2018-07 00:00: 00 Yes [id number] Use as directed, once a day, DX:E11.9 [facility] Insulin Hepzibah, Disposable, (BD INSULIN PEN NEEDLE UF) 29 gauge x 1/2" [facility] 2018-07 00:00: 00 04-19 00:00 :00 No [id number] Use as directed, once a day, DX:E11.9 [facility] furosemide 80 mg tablet 12-11 11:36: 35 12-11 00:00 :00 No 80mg Take 80 mg by mouth 2 (two) times daily. [facility] melatonin (MELATIN) 3 mg tablet 12-11 11:34: 53 12-11 00:00 :00 No 3mg Take 3 mg by mouth at bedtime. [facility] ACCU-CHEK PHILLIP strip 11-10 00:00: 00 06-08 00:00 :00 No [id number] Take sugars 1-2 times a day, DX E11.9 [facility] ACCU-CHEK PHILLIP strip 11-10 00:00: 00 06-08 00:00 :00 No [id number] Take sugars 1-2 times a day, DX E11.9 [facility] carvedilol 80 mg 24 hr capsule 2017-07 12:47: 16 05-09 00:00 :00 No 1{capsu le} Take 1 capsule by mouth daily. [facility] TRAMADOL 50 mg tablet 2017-07 00:00: 00 06-11 00:00 :00 No [id number] TAKE 1 TABLET BY MOUTH EVERY 6 HOURS NEEDED FOR BREATKTHRO UGH NEUROPATHY PAIN IN FEET [facility] Insulin Detemir (LEVEMIR FLEXTOUCH U-100 INSULN) 100 unit/mL (3 mL) injection 2017-07 00:00: 00 05-09 00:00 :00 No 30U inject 30 Units under the skin 2 (two) times daily. [facility] BD INSULIN PEN NEEDLE UF 31 gauge x 5/16" Ndle 03-24 00:00: 00 05-09 00:00 :00 No USE 1 TIME DAILY DIRECTED [facility] Insulin Syringe-Nee dle U-100 (BD INSULIN SYRINGE UF) 0.3 mL 30 gauge x 1/2" Syrg 03-22 00:00: 00 03-19 00:00 :00 No [id number] Use as directed for diabetes, E11.9, inject self daily. [facility] levothyroxi ne 25 mcg tablet 03-14 00:00: 00 11-09 00:00 :00 No [id number] 25ug Take 1 tablet by mouth every morning. [facility] METFORMIN ER 500 mg 24 hr tablet 01-09 00:00: 00 06-19 00:00 :00 No [id number] TAKE 2 TABLETS BY MOUTH TWICE A DAY [facility] blood sugar diagnostic (ACCU-CHEK PHILLIP) strip 10-03 00:00: 00 11-10 00:00 :00 No [id number] Take sugars 1-2 times a day, DX E11.9 [facility] omeprazole 40 mg capsule 10-03 00:00: 00 10-20 00:00 :00 No [id number] 40mg Take 1 capsule by mouth daily. [facility] fluticasone (FLONASE) 50 mcg/actuati on nasal spray 07-05 00:00: 00 12-11 00:00 :00 No [id number] 2{spray } Use 2 Sprays in each nostril daily. [facility] spironolact one 50 mg tablet 07-05 00:00: 00 09-13 00:00 :00 No [id number] 50mg Take 1 tablet by mouth daily. [facility] glimepiride 4 mg tablet 07-05 00:00: 00 07-24 00:00 :00 No [id number] 4mg Take 1 tablet by mouth 2 (two) times daily. [facility] pravastatin (PRAVACHOL) 40 mg tablet 2015-07 00:00: 00 07-20 00:00 :00 No TAKE 1 TABLET BY MOUTH AT BEDTIME [facility] pramipexole (MIRAPEX) 0.5 mg tablet 04-01 00:00: 00 07-14 00:00 :00 No TAKE 1/2 TABLET EVERY MORNING AND 1 TABLET EVERY EVENING [facility] Banophen 25 mg capsule Take 1 capsule every 6 hours by oral route. Banophen 25 mg capsule Take 1 capsule every 6 hours by oral route. No 1capsul e(s) Q6H Banophen 25 mg capsule Take 1 capsule every 6 hours by oral route. [facility] BD Ultra-Fine Original Pen Needle 29 gauge x 1/2" BD Ultra-Fine Original Pen Needle 29 gauge x 1/2" No BD Ultra-Fine Original Pen Needle 29 gauge x 1/2" [facility] levothyroxi ne 50 mcg tablet Take 1 tablet every day by oral route. levothyroxi ne 50 mcg tablet Take 1 tablet every day by oral route. No 1 Q1D levothyrox ine 50 mcg tablet Take 1 tablet every day by oral route. [facility] Novolog Flexpen U-100 Insulin aspart 100 unit/mL (3 mL) subcutaneou s sliding scale: based on blood sugar Novolog Flexpen U-100 Insulin aspart 100 unit/mL (3 mL) subcutaneou s sliding scale: based on blood sugar No Novolog Flexpen U-100 Insulin aspart 100 unit/mL (3 mL) subcutaneo us sliding scale: based on blood sugar [facility] Ozempic 1 mg/dose (2 mg/1.5 mL) subcutaneou s pen injector INJECT 1 MG EVERY WEEK BY SUBCUTANEOU S ROUTE. Ozempic 1 mg/dose (2 mg/1.5 mL) subcutaneou s pen injector INJECT 1 MG EVERY WEEK BY SUBCUTANEOU S ROUTE. No Ozempic 1 mg/dose (2 mg/1.5 mL) subcutaneo us pen injector INJECT 1 MG EVERY WEEK BY SUBCUTANEO US ROUTE. [facility] pregabalin 300 mg capsule TAKE 1 CAPSULE BY MOUTH TWICE A DAY pregabalin 300 mg capsule TAKE 1 CAPSULE BY MOUTH TWICE A DAY No pregabalin 300 mg capsule TAKE 1 CAPSULE BY MOUTH TWICE A DAY [facility] sulfamethox azole 800 mg-trimetho prim 160 mg tablet Take 1 tablet every 12 hours by oral route. sulfamethox azole 800 mg-trimetho prim 160 mg tablet Take 1 tablet every 12 hours by oral route. No sulfametho xazole 800 mg-trimeth oprim 160 mg tablet Take 1 tablet every 12 hours by oral route. [facility] Accu-Chek Phillip Plus test strips USE 1 STRIP 3 TIMES A DAY Accu-Chek Phillip Plus test strips USE 1 STRIP 3 TIMES A DAY No Accu-Chek Phillip Plus test strips USE 1 STRIP 3 TIMES A DAY [facility] Banophen 25 mg capsule Take 1 capsule every 6 hours by oral route. Banophen 25 mg capsule Take 1 capsule every 6 hours by oral route. No 1capsul e(s) Q6H Banophen 25 mg capsule Take 1 capsule every 6 hours by oral route. [facility] BD Ultra-Fine Original Pen Needle 29 gauge x 1/2" BD Ultra-Fine Original Pen Needle 29 gauge x 1/2" No BD Ultra-Fine Original Pen Needle 29 gauge x 1/2" [facility] Eliquis 5 mg tablet TAKE 1 TABLET BY MOUTH 2 (TWO) TIMES DAILY. INDICATIONS DEEP VEIN THROMBOSIS PREVENTION Eliquis 5 mg tablet TAKE 1 TABLET BY MOUTH 2 (TWO) TIMES DAILY. INDICATIONS DEEP VEIN THROMBOSIS PREVENTION No Eliquis 5 mg tablet TAKE 1 TABLET BY MOUTH 2 (TWO) TIMES DAILY. INDICATION S DEEP VEIN THROMBOSIS PREVENTION [facility] ferrous sulfate 325 mg (65 mg iron) tablet Take 1 tablet every day by oral route. ferrous sulfate 325 mg (65 mg iron) tablet Take 1 tablet every day by oral route. No 1 Q1D ferrous sulfate 325 mg (65 mg iron) tablet Take 1 tablet every day by oral route. [facility] levothyroxi ne 50 mcg tablet Take 1 tablet every day by oral route. levothyroxi ne 50 mcg tablet Take 1 tablet every day by oral route. No 1 Q1D levothyrox ine 50 mcg tablet Take 1 tablet every day by oral route. [facility] Novolog Flexpen U-100 Insulin aspart 100 unit/mL (3 mL) subcutaneou s sliding scale: based on blood sugar Novolog Flexpen U-100 Insulin aspart 100 unit/mL (3 mL) subcutaneou s sliding scale: based on blood sugar No Novolog Flexpen U-100 Insulin aspart 100 unit/mL (3 mL) subcutaneo us sliding scale: based on blood sugar [facility] Ozempic 1 mg/dose (2 mg/1.5 mL) subcutaneou s pen injector INJECT 1 MG EVERY WEEK BY SUBCUTANEOU S ROUTE. Ozempic 1 mg/dose (2 mg/1.5 mL) subcutaneou s pen injector INJECT 1 MG EVERY WEEK BY SUBCUTANEOU S ROUTE. No Ozempic 1 mg/dose (2 mg/1.5 mL) subcutaneo us pen injector INJECT 1 MG EVERY WEEK BY SUBCUTANEO US ROUTE. [facility] pregabalin 300 mg capsule TAKE 1 CAPSULE BY MOUTH TWICE A DAY pregabalin 300 mg capsule TAKE 1 CAPSULE BY MOUTH TWICE A DAY No pregabalin 300 mg capsule TAKE 1 CAPSULE BY MOUTH TWICE A DAY [facility] doxycycline hyclate 100 mg capsule TAKE 1 CAPSULE BY MOUTH TWICE A DAY doxycycline hyclate 100 mg capsule TAKE 1 CAPSULE BY MOUTH TWICE A DAY No doxycyclin e hyclate 100 mg capsule TAKE 1 CAPSULE BY MOUTH TWICE A DAY [facility] Accu-Chek Phillip Plus test strips USE 1 STRIP 3 TIMES A DAY Accu-Chek Phillip Plus test strips USE 1 STRIP 3 TIMES A DAY No Accu-Chek Phillip Plus test strips USE 1 STRIP 3 TIMES A DAY [facility] Banophen 25 mg capsule TAKE 1 CAPSULE EVERY 6 HOURS BY ORAL ROUTE. As needed for Iching Banophen 25 mg capsule TAKE 1 CAPSULE EVERY 6 HOURS BY ORAL ROUTE. As needed for Iching No Banophen 25 mg capsule TAKE 1 CAPSULE EVERY 6 HOURS BY ORAL ROUTE. As needed for Iching [facility] BD Ultra-Fine Original Pen Needle 29 gauge x 1/2" USE 4 TIMES A DAY DIRECTED BD Ultra-Fine Original Pen Needle 29 gauge x 1/2" USE 4 TIMES A DAY DIRECTED No BD Ultra-Fine Original Pen Needle 29 gauge x 1/2" USE 4 TIMES A DAY DIRECTED [facility] doxycycline hyclate 100 mg capsule doxycycline hyclate 100 mg capsule No doxycyclin e hyclate 100 mg capsule [facility] Eliquis 5 mg tablet TAKE 1 TABLET BY MOUTH 2 (TWO) TIMES DAILY. INDICATIONS DEEP VEIN THROMBOSIS PREVENTION Eliquis 5 mg tablet TAKE 1 TABLET BY MOUTH 2 (TWO) TIMES DAILY. INDICATIONS DEEP VEIN THROMBOSIS PREVENTION No Eliquis 5 mg tablet TAKE 1 TABLET BY MOUTH 2 (TWO) TIMES DAILY. INDICATION S DEEP VEIN THROMBOSIS PREVENTION [facility] Novolog Flexpen U-100 Insulin aspart 100 unit/mL (3 mL) subcutaneou s sliding scale: based on blood sugar Novolog Flexpen U-100 Insulin aspart 100 unit/mL (3 mL) subcutaneou s sliding scale: based on blood sugar No Novolog Flexpen U-100 Insulin aspart 100 unit/mL (3 mL) subcutaneo us sliding scale: based on blood sugar [facility] Ozempic 1 mg/dose (2 mg/1.5 mL) subcutaneou s pen injector INJECT 1 MG EVERY WEEK BY SUBCUTANEOU S ROUTE. Ozempic 1 mg/dose (2 mg/1.5 mL) subcutaneou s pen injector INJECT 1 MG EVERY WEEK BY SUBCUTANEOU S ROUTE. No Ozempic 1 mg/dose (2 mg/1.5 mL) subcutaneo us pen injector INJECT 1 MG EVERY WEEK BY SUBCUTANEO US ROUTE. [facility] pregabalin 300 mg capsule TAKE 1 CAPSULE BY MOUTH TWICE A DAY pregabalin 300 mg capsule TAKE 1 CAPSULE BY MOUTH TWICE A DAY No pregabalin 300 mg capsule TAKE 1 CAPSULE BY MOUTH TWICE A DAY [facility] Accu-Chek Phillip Plus test strips USE 1 STRIP 3 TIMES A DAY Accu-Chek Phillip Plus test strips USE 1 STRIP 3 TIMES A DAY No Accu-Chek Phillip Plus test strips USE 1 STRIP 3 TIMES A DAY [facility] Arnuity Ellipta 200 mcg/actuati on powder for inhalation INHALE 1 PUFF BY MOUTH EVERY 24 HOURS PRN Arnuity Ellipta 200 mcg/actuati on powder for inhalation INHALE 1 PUFF BY MOUTH EVERY 24 HOURS PRN No Arnuity Ellipta 200 mcg/actuat ion powder for inhalation INHALE 1 PUFF BY MOUTH EVERY 24 HOURS PRN [facility] aspirin 81 mg chewable tablet Chew 1 tablet every day by oral route. aspirin 81 mg chewable tablet Chew 1 tablet every day by oral route. No 1 Q1D aspirin 81 mg chewable tablet Chew 1 tablet every day by oral route. [facility] Banophen 25 mg capsule TAKE 1 CAPSULE EVERY 6 HOURS BY ORAL ROUTE. As needed for Iching Banophen 25 mg capsule TAKE 1 CAPSULE EVERY 6 HOURS BY ORAL ROUTE. As needed for Iching No Banophen 25 mg capsule TAKE 1 CAPSULE EVERY 6 HOURS BY ORAL ROUTE. As needed for Iching [facility] BD Ultra-Fine Original Pen Needle 29 gauge x 1/2" USE 4 TIMES A DAY DIRECTED BD Ultra-Fine Original Pen Needle 29 gauge x 1/2" USE 4 TIMES A DAY DIRECTED No BD Ultra-Fine Original Pen Needle 29 gauge x 1/2" USE 4 TIMES A DAY DIRECTED [facility] doxycycline hyclate 100 mg capsule doxycycline hyclate 100 mg capsule No doxycyclin e hyclate 100 mg capsule [facility] doxycycline hyclate 100 mg tablet doxycycline hyclate 100 mg tablet No doxycyclin e hyclate 100 mg tablet [facility] Eliquis 5 mg tablet TAKE 1 TABLET BY MOUTH 2 (TWO) TIMES DAILY. INDICATIONS DEEP VEIN THROMBOSIS PREVENTION Eliquis 5 mg tablet TAKE 1 TABLET BY MOUTH 2 (TWO) TIMES DAILY. INDICATIONS DEEP VEIN THROMBOSIS PREVENTION No Eliquis 5 mg tablet TAKE 1 TABLET BY MOUTH 2 (TWO) TIMES DAILY. INDICATION S DEEP VEIN THROMBOSIS PREVENTION [facility] Farxiga 10 mg tablet TAKE 1 TABLET BY MOUTH EVERY DAY Farxiga 10 mg tablet TAKE 1 TABLET BY MOUTH EVERY DAY No Farxiga 10 mg tablet TAKE 1 TABLET BY MOUTH EVERY DAY [facility] midodrine 5 mg tablet TAKE 1 TABLET BY MOUTH THREE TIMES A DAY midodrine 5 mg tablet TAKE 1 TABLET BY MOUTH THREE TIMES A DAY No midodrine 5 mg tablet TAKE 1 TABLET BY MOUTH THREE TIMES A DAY [facility] Novolog Flexpen U-100 Insulin aspart 100 unit/mL (3 mL) subcutaneou s sliding scale: based on blood sugar Novolog Flexpen U-100 Insulin aspart 100 unit/mL (3 mL) subcutaneou s sliding scale: based on blood sugar No Novolog Flexpen U-100 Insulin aspart 100 unit/mL (3 mL) subcutaneo us sliding scale: based on blood sugar [facility] Nystop 100,000 unit/gram topical powder APPLY TO THE AFFECTED AREA(S) BY TOPICAL ROUTE 2 TIMES PER DAY Nystop 100,000 unit/gram topical powder APPLY TO THE AFFECTED AREA(S) BY TOPICAL ROUTE 2 TIMES PER DAY No Nystop 100,000 unit/gram topical powder APPLY TO THE AFFECTED AREA(S) BY TOPICAL ROUTE 2 TIMES PER DAY [facility] Ozempic 1 mg/dose (2 mg/1.5 mL) subcutaneou s pen injector INJECT 1 MG EVERY WEEK BY SUBCUTANEOU S ROUTE. Ozempic 1 mg/dose (2 mg/1.5 mL) subcutaneou s pen injector INJECT 1 MG EVERY WEEK BY SUBCUTANEOU S ROUTE. No Ozempic 1 mg/dose (2 mg/1.5 mL) subcutaneo us pen injector INJECT 1 MG EVERY WEEK BY SUBCUTANEO US ROUTE. [facility] Ozempic 1 mg/dose (4 mg/3 mL) subcutaneou s pen injector INJECT 1 MG EVERY WEEK SUBCUTANEOU SLY Ozempic 1 mg/dose (4 mg/3 mL) subcutaneou s pen injector INJECT 1 MG EVERY WEEK SUBCUTANEOU SLY No Ozempic 1 mg/dose (4 mg/3 mL) subcutaneo us pen injector INJECT 1 MG EVERY WEEK SUBCUTANEO USLY [facility] potassium chloride ER 10 mEq tablet,exte nded release(par t/cryst) Take 2 tablets every day by oral route. potassium chloride ER 10 mEq tablet,exte nded release(par t/cryst) Take 2 tablets every day by oral route. No 2 Q1D potassium chloride ER 10 mEq tablet,ext ended release(pa rt/cryst) Take 2 tablets every day by oral route. [facility] pramipexole 0.75 mg tablet TAKE 1 TABLET BY MOUTH EVERYDAY AT BEDTIME pramipexole 0.75 mg tablet TAKE 1 TABLET BY MOUTH EVERYDAY AT BEDTIME No pramipexol e 0.75 mg tablet TAKE 1 TABLET BY MOUTH EVERYDAY AT BEDTIME [facility] pregabalin 300 mg capsule TAKE 1 CAPSULE BY MOUTH TWICE A DAY pregabalin 300 mg capsule TAKE 1 CAPSULE BY MOUTH TWICE A DAY No pregabalin 300 mg capsule TAKE 1 CAPSULE BY MOUTH TWICE A DAY [facility] Miralax 17 gram/dose oral powder Take by oral route. Miralax 17 gram/dose oral powder Take by oral route. No Miralax 17 gram/dose oral powder Take by oral route. [facility] cefadroxil 500 mg capsule TAKE 2CAPSULES BY MOUTH DAILY FOR 9 DAYS. cefadroxil 500 mg capsule TAKE 2CAPSULES BY MOUTH DAILY FOR 9 DAYS. No cefadroxil 500 mg capsule TAKE 2CAPSULES BY MOUTH DAILY FOR 9 DAYS. [facility] triamcinolo ne acetonide 0.1 % topical ointment APPLY TO AREA(S) 2 (TWO) TIMES DAILY NEEDED FOR RASH. triamcinolo ne acetonide 0.1 % topical ointment APPLY TO AREA(S) 2 (TWO) TIMES DAILY NEEDED FOR RASH. No triamcinol one acetonide 0.1 % topical ointment APPLY TO AREA(S) 2 (TWO) TIMES DAILY NEEDED FOR RASH. [facility] Accu-Chek Phillip Plus test strips USE 1 STRIP 3 TIMES A DAY Accu-Chek Phillip Plus test strips USE 1 STRIP 3 TIMES A DAY No Accu-Chek Phillip Plus test strips USE 1 STRIP 3 TIMES A DAY [facility] aspirin 81 mg chewable tablet Chew 1 tablet every day by oral route. aspirin 81 mg chewable tablet Chew 1 tablet every day by oral route. No aspirin 81 mg chewable tablet Chew 1 tablet every day by oral route. [facility] Banophen 25 mg capsule TAKE 1 CAPSULE EVERY 6 HOURS BY ORAL ROUTE. As needed for Iching Banophen 25 mg capsule TAKE 1 CAPSULE EVERY 6 HOURS BY ORAL ROUTE. As needed for Iching No Banophen 25 mg capsule TAKE 1 CAPSULE EVERY 6 HOURS BY ORAL ROUTE. As needed for Iching [facility] BD Ultra-Fine Original Pen Needle 29 gauge x 1/2" USE 4 TIMES A DAY DIRECTED BD Ultra-Fine Original Pen Needle 29 gauge x 1/2" USE 4 TIMES A DAY DIRECTED No BD Ultra-Fine Original Pen Needle 29 gauge x 1/2" USE 4 TIMES A DAY DIRECTED [facility] Eliquis 5 mg tablet TAKE 1 TABLET BY MOUTH 2 (TWO) TIMES DAILY. INDICATIONS : DVT PREVENTION Eliquis 5 mg tablet TAKE 1 TABLET BY MOUTH 2 (TWO) TIMES DAILY. INDICATIONS : DVT PREVENTION No Eliquis 5 mg tablet TAKE 1 TABLET BY MOUTH 2 (TWO) TIMES DAILY. INDICATION S: DVT PREVENTION [facility] Farxiga 10 mg tablet TAKE 1 TABLET BY MOUTH EVERY DAY Farxiga 10 mg tablet TAKE 1 TABLET BY MOUTH EVERY DAY No Farxiga 10 mg tablet TAKE 1 TABLET BY MOUTH EVERY DAY [facility] midodrine 5 mg tablet Take 1 tablet twice a day by oral route. midodrine 5 mg tablet Take 1 tablet twice a day by oral route. No 1 BID midodrine 5 mg tablet Take 1 tablet twice a day by oral route. [facility] Miralax 17 gram/dose oral powder Take by oral route. Miralax 17 gram/dose oral powder Take by oral route. No Miralax 17 gram/dose oral powder Take by oral route. [facility] Novolog Flexpen U-100 Insulin aspart 100 unit/mL (3 mL) subcutaneou s Inject 04-14-12 Novolog Flexpen U-100 Insulin aspart 100 unit/mL (3 mL) subcutaneou s Inject 04-14-12 No Novolog Flexpen U-100 Insulin aspart 100 unit/mL (3 mL) subcutaneo us Inject 04-14-12 [facility] Ozempic 1 mg/dose (4 mg/3 mL) subcutaneou s pen injector INJECT 1 MG SUBCUTANEOU SLY EVERY WEEK Ozempic 1 mg/dose (4 mg/3 mL) subcutaneou s pen injector INJECT 1 MG SUBCUTANEOU SLY EVERY WEEK No Ozempic 1 mg/dose (4 mg/3 mL) subcutaneo us pen injector INJECT 1 MG SUBCUTANEO USLY EVERY WEEK [facility] potassium chloride ER 10 mEq tablet,exte nded release(par t/cryst) TAKE 2 TABLETS BY MOUTH EVERY DAY potassium chloride ER 10 mEq tablet,exte nded release(par t/cryst) TAKE 2 TABLETS BY MOUTH EVERY DAY No potassium chloride ER 10 mEq tablet,ext ended release(pa rt/cryst) TAKE 2 TABLETS BY MOUTH EVERY DAY [facility] pramipexole 0.75 mg tablet Take 1 tablet every day by oral route. pramipexole 0.75 mg tablet Take 1 tablet every day by oral route. No 1 Q1D pramipexol e 0.75 mg tablet Take 1 tablet every day by oral route. [facility] Tresiba FlexTouch U-100 insulin 100 unit/mL (3 mL) subcutaneou s pen INJECT 70 UNITS UNDER THE SKIN ONCE DAILY Tresiba FlexTouch U-100 insulin 100 unit/mL (3 mL) subcutaneou s pen INJECT 70 UNITS UNDER THE SKIN ONCE DAILY No Tresiba FlexTouch U-100 insulin 100 unit/mL (3 mL) subcutaneo us pen INJECT 70 UNITS UNDER THE SKIN ONCE DAILY [facility] triamcinolo ne acetonide 0.1 % topical ointment APPLY TO AREA(S) 2 (TWO) TIMES DAILY NEEDED FOR RASH. triamcinolo ne acetonide 0.1 % topical ointment APPLY TO AREA(S) 2 (TWO) TIMES DAILY NEEDED FOR RASH. No triamcinol one acetonide 0.1 % topical ointment APPLY TO AREA(S) 2 (TWO) TIMES DAILY NEEDED FOR RASH. [facility] Accu-Chek Phillip Plus test strips USE 1 STRIP 3 TIMES A DAY Accu-Chek Phillip Plus test strips USE 1 STRIP 3 TIMES A DAY No Accu-Chek Phillip Plus test strips USE 1 STRIP 3 TIMES A DAY [facility] Arnuity Ellipta 200 mcg/actuati on powder for inhalation 1 puff PO qd Arnuity Ellipta 200 mcg/actuati on powder for inhalation 1 puff PO qd No Arnuity Ellipta 200 mcg/actuat ion powder for inhalation 1 puff PO qd [facility] Immunizations Ordered Immunization Name Filled Immunization Name Date Status Comments Source TDAP 2023-11-11 00:00:00 Completed TDAP 2023-11-11 00:00:00 Completed TDAP 2023-11-11 00:00:00 Completed Influenza Virus Vaccine,quad Im,preserve Free 2022-05-10 00:00:00 Completed [facility] Influenza Virus Vaccine,quad Im,preserve Free 2022-05-10 00:00:00 Completed [facility] Influenza Virus Vaccine,quad Im,preserve Free 2022-05-10 00:00:00 Completed [facility] Influenza Virus Vaccine,quad Im,preserve Free 2022-05-10 00:00:00 Completed [facility] Influenza Virus Vaccine,quad Im,preserve Free 2022-05-10 00:00:00 Completed [facility] Influenza Virus Vaccine,quad Im,preserve Free 2022-05-10 00:00:00 Completed [facility] Influenza Virus Vaccine,quad Im,preserve Free 2022-05-10 00:00:00 Completed [facility] Influenza Virus Vaccine,quad Im,preserve Free 2022-05-10 00:00:00 Completed [facility] Influenza Virus Vaccine,quad Im,preserve Free 2022-05-10 00:00:00 Completed [facility] Influenza Virus Vaccine,quad Im,preserve Free 2022-05-10 00:00:00 Completed [facility] Influenza Virus Vaccine,quad Im,preserve Free 2022-05-10 00:00:00 Completed [facility] Influenza Virus Vaccine,quad Im,preserve Free 2022-05-10 00:00:00 Completed [facility] Influenza Virus Vaccine,quad Im,preserve Free 2022-05-10 00:00:00 Completed [facility] Influenza Virus Vaccine,quad Im,preserve Free 2022-05-10 00:00:00 Completed [facility] Influenza Virus Vaccine,quad Im,preserve Free 2022-05-10 00:00:00 Completed [facility] Influenza Virus Vaccine,quad Im,preserve Free 2022-05-10 00:00:00 Completed [facility] Influenza Virus Vaccine,quad Im,preserve Free 2022-05-10 00:00:00 Completed [facility] Influenza Virus Vaccine,quad Im,preserve Free 2022-05-10 00:00:00 Completed [facility] Influenza Virus Vaccine,quad Im,preserve Free 2022-05-10 00:00:00 Completed [facility] Influenza Virus Vaccine,quad Im,preserve Free 2022-05-10 00:00:00 Completed [facility] Influenza Virus Vaccine,quad Im,preserve Free 2022-05-10 00:00:00 Completed [facility] Influenza Virus Vaccine,quad Im,preserve Free 2022-05-10 00:00:00 Completed [facility] Influenza Virus Vaccine,quad Im,preserve Free 2022-05-10 00:00:00 Completed [facility] Influenza Virus Vaccine,quad Im,preserve Free 2022-05-10 00:00:00 Completed [facility] Influenza Virus Vaccine,quad Im,preserve Free 2022-05-10 00:00:00 Completed [facility] Influenza Virus Vaccine,quad Im,preserve Free 2022-05-10 00:00:00 Completed [facility] Influenza Virus Vaccine,quad Im,preserve Free 2022-05-10 00:00:00 Completed [facility] Influenza Virus Vaccine,quad Im,preserve Free 2022-05-10 00:00:00 Completed [facility] Influenza Virus Vaccine,quad Im,preserve Free 2022-05-10 00:00:00 Completed [facility] Influenza Virus Vaccine,quad Im,preserve Free 2022-05-10 00:00:00 Completed [facility] Influenza Virus Vaccine,quad Im,preserve Free 2022-05-10 00:00:00 Completed [facility] Influenza Virus Vaccine,quad Im,preserve Free 2022-05-10 00:00:00 Completed [facility] Influenza Virus Vaccine,quad Im,preserve Free 2022-05-10 00:00:00 Completed [facility] Influenza Virus Vaccine,quad Im,preserve Free 2022-05-10 00:00:00 Completed [facility] Influenza Virus Vaccine,quad Im,preserve Free 2022-05-10 00:00:00 Completed [facility] Influenza Virus Vaccine,quad Im,preserve Free 2022-05-10 00:00:00 Completed [facility] Influenza Virus Vaccine,quad Im,preserve Free 2022-05-10 00:00:00 Completed [facility] Influenza Virus Vaccine,quad Im,preserve Free 2022-05-10 00:00:00 Completed [facility] Influenza Virus Vaccine,quad Im,preserve Free 2022-05-10 00:00:00 Completed [facility] Influenza Virus Vaccine,quad Im,preserve Free 2022-05-10 00:00:00 Completed [facility] Influenza Virus Vaccine,quad Im,preserve Free 2022-05-10 00:00:00 Completed [facility] Influenza Virus Vaccine,quad Im,preserve Free 2022-05-10 00:00:00 Completed [facility] Influenza Virus Vaccine,quad Im,preserve Free 2022-05-10 00:00:00 Completed [facility] Influenza Virus Vaccine,quad Im,preserve Free 2022-05-10 00:00:00 Completed [facility] Influenza Virus Vaccine,quad Im,preserve Free 2022-05-10 00:00:00 Completed [facility] Influenza Virus Vaccine,quad Im,preserve Free 2022-05-10 00:00:00 Completed [facility] Influenza Virus Vaccine,quad Im,preserve Free 2022-05-10 00:00:00 Completed [facility] Influenza Virus Vaccine,quad Im,preserve Free 2022-05-10 00:00:00 Completed [facility] Influenza Virus Vaccine,quad Im,preserve Free 2022-05-10 00:00:00 Completed [facility] Influenza Virus Vaccine,quad Im,preserve Free 2022-05-10 00:00:00 Completed [facility] Influenza Virus Vaccine,quad Im,preserve Free 2022-05-10 00:00:00 Completed [facility] Influenza Virus Vaccine,quad Im,preserve Free 2022-05-10 00:00:00 Completed [facility] Influenza Virus Vaccine,quad Im,preserve Free 2022-05-10 00:00:00 Completed [facility] Influenza Virus Vaccine,quad Im,preserve Free 2022-05-10 00:00:00 Completed [facility] Influenza Virus Vaccine,quad Im,preserve Free 2022-05-10 00:00:00 Completed [facility] Influenza Virus Vaccine,quad Im,preserve Free 2022-05-10 00:00:00 Completed [facility] Influenza Virus Vaccine,quad Im,preserve Free 2022-05-10 00:00:00 Completed [facility] Influenza Virus Vaccine,quad Im,preserve Free 2022-05-10 00:00:00 Completed [facility] Influenza Virus Vaccine,quad Im,preserve Free 2022-05-10 00:00:00 Completed [facility] Influenza Virus Vaccine,quad Im,preserve Free 2022-05-10 00:00:00 Completed [facility] Influenza Virus Vaccine,quad Im,preserve Free 2022-05-10 00:00:00 Completed [facility] Influenza Virus Vaccine,quad Im,preserve Free 2022-05-10 00:00:00 Completed [facility] Influenza Virus Vaccine,quad Im,preserve Free 2022-05-10 00:00:00 Completed [facility] Influenza Virus Vaccine,quad Im,preserve Free 2022-05-10 00:00:00 Completed [facility] Influenza Virus Vaccine,quad Im,preserve Free 2022-05-10 00:00:00 Completed [facility] Influenza Virus Vaccine,quad Im,preserve Free 2022-05-10 00:00:00 Completed [facility] Influenza Virus Vaccine,quad Im,preserve Free 2022-05-10 00:00:00 Completed [facility] Influenza Virus Vaccine,quad Im,preserve Free 2022-05-10 00:00:00 Completed [facility] Influenza Virus Vaccine,quad Im,preserve Free 2022-05-10 00:00:00 Completed [facility] Influenza Virus Vaccine,quad Im,preserve Free 2022-05-10 00:00:00 Completed [facility] Influenza Virus Vaccine,quad Im,preserve Free 2022-05-10 00:00:00 Completed [facility] Influenza Virus Vaccine,quad Im,preserve Free 2022-05-10 00:00:00 Completed [facility] Influenza Virus Vaccine,quad Im,preserve Free 2022-05-10 00:00:00 Completed [facility] Influenza Virus Vaccine,quad Im,preserve Free 2022-05-10 00:00:00 Completed [facility] Influenza Virus Vaccine,quad Im,preserve Free 2022-05-10 00:00:00 Completed [facility] Influenza Virus Vaccine,quad Im,preserve Free 2022-05-10 00:00:00 Completed [facility] Influenza Virus Vaccine,quad Im,preserve Free 65+ 2022-05-10 00:00:00 Completed [facility] Influenza Virus Vaccine,quad Im,preserve Free 652022-05-10 00:00:00 Completed [facility] Influenza Virus Vaccine,quad Im,preserve Free 65+ 2022-05-10 00:00:00 Completed [facility] Influenza Virus Vaccine,quad Im,preserve Free 65+ 2022-05-10 00:00:00 Completed [facility] Influenza Virus Vaccine,quad Im,preserve Free 652022-05-10 00:00:00 Completed [facility] Influenza Virus Vaccine,quad Im,preserve Free 65+ 2022-05-10 00:00:00 Completed [facility] Influenza Virus Vaccine,quad Im,preserve Free 652022-05-10 00:00:00 Completed [facility] Influenza Virus Vaccine,quad Im,preserve Free 652022-05-10 00:00:00 Completed [facility] Influenza Virus Vaccine,quad Im,preserve Free 652022-05-10 00:00:00 Completed [facility] Influenza Virus Vaccine,quad Im,preserve Free 652022-05-10 00:00:00 Completed [facility] Influenza Virus Vaccine,quad Im,preserve Free 652022-05-10 00:00:00 Completed [facility] Influenza Virus Vaccine,quad Im,preserve Free 652022-05-10 00:00:00 Completed [facility] Influenza Virus Vaccine,quad Im,preserve Free 652022-05-10 00:00:00 Completed [facility] Influenza Virus Vaccine,quad Im,preserve Free 652022-05-10 00:00:00 Completed [facility] Influenza Virus Vaccine,quad Im,preserve Free 65+ (FLUAD) 2022-05-10 00:00:00 Completed [facility] Influenza Virus Vaccine,quad Im,preserve Free 65+ (FLUAD) 2022-05-10 00:00:00 Completed [facility] Influenza Virus Vaccine,quad Im,preserve Free 65+ (FLUAD) 2022-05-10 00:00:00 Completed [facility] Influenza Virus Vaccine,quad Im,preserve Free 65+ (FLUAD) 2022-05-10 00:00:00 Completed [facility] Influenza Virus Vaccine,quad Im,preserve Free 65+ (FLUAD) 2022-05-10 00:00:00 Completed [facility] Influenza Virus Vaccine,quad Im,preserve Free 65+ (FLUAD) 2022-05-10 00:00:00 Completed [facility] Influenza Virus Vaccine,quad Im,preserve Free 65+ (FLUAD) 2022-05-10 00:00:00 Completed [facility] Influenza Virus Vaccine,quad Im,preserve Free 65+ (FLUAD) 2022-05-10 00:00:00 Completed [facility] Influenza Virus Vaccine,quad Im,preserve Free 65+ (FLUAD) 2022-05-10 00:00:00 Completed [facility] Influenza Virus Vaccine,quad Im,preserve Free 65+ (FLUAD) 2022-05-10 00:00:00 Completed [facility] SARS-COV-2 COVID-19 UNSPECIFIED VACCINE 2020-09-29 00:00:00 Completed [facility] SARS-COV-2 COVID-19 UNSPECIFIED VACCINE 2020-09-29 00:00:00 Completed [facility] SARS-COV-2 COVID-19 UNSPECIFIED VACCINE 2020-09-29 00:00:00 Completed [facility] SARS-COV-2 COVID-19 UNSPECIFIED VACCINE 2020-09-29 00:00:00 Completed [facility] SARS-COV-2 COVID-19 UNSPECIFIED VACCINE 2020-09-29 00:00:00 Completed [facility] SARS-COV-2 COVID-19 UNSPECIFIED VACCINE 2020-09-29 00:00:00 Completed [facility] SARS-COV-2 COVID-19 UNSPECIFIED VACCINE 2020-09-29 00:00:00 Completed [facility] SARS-COV-2 COVID-19 UNSPECIFIED VACCINE 2020-09-29 00:00:00 Completed [facility] SARS-COV-2 COVID-19 UNSPECIFIED VACCINE 2020-09-29 00:00:00 Completed [facility] SARS-COV-2 COVID-19 UNSPECIFIED VACCINE 2020-09-29 00:00:00 Completed [facility] SARS-COV-2 COVID-19 UNSPECIFIED VACCINE 2020-09-29 00:00:00 Completed [facility] SARS-COV-2 COVID-19 UNSPECIFIED VACCINE 2020-09-29 00:00:00 Completed [facility] SARS-COV-2 COVID-19 UNSPECIFIED VACCINE 2020-09-29 00:00:00 Completed [facility] SARS-COV-2 COVID-19 UNSPECIFIED VACCINE 2020-09-29 00:00:00 Completed [facility] SARS-COV-2 COVID-19 UNSPECIFIED VACCINE 2020-09-29 00:00:00 Completed [facility] SARS-COV-2 COVID-19 UNSPECIFIED VACCINE 2020-09-29 00:00:00 Completed [facility] SARS-COV-2 COVID-19 UNSPECIFIED VACCINE 2020-09-29 00:00:00 Completed [facility] SARS-COV-2 COVID-19 UNSPECIFIED VACCINE 2020-09-29 00:00:00 Completed [facility] SARS-COV-2 COVID-19 UNSPECIFIED VACCINE 2020-09-29 00:00:00 Completed [facility] SARS-COV-2 COVID-19 UNSPECIFIED VACCINE 2020-09-29 00:00:00 Completed [facility] SARS-COV-2 COVID-19 UNSPECIFIED VACCINE 2020-09-29 00:00:00 Completed [facility] SARS-COV-2 COVID-19 UNSPECIFIED VACCINE 2020-09-29 00:00:00 Completed [facility] SARS-COV-2 COVID-19 UNSPECIFIED VACCINE 2020-09-29 00:00:00 Completed [facility] SARS-COV-2 COVID-19 UNSPECIFIED VACCINE 2020-09-29 00:00:00 Completed [facility] SARS-COV-2 COVID-19 UNSPECIFIED VACCINE 2020-09-29 00:00:00 Completed [facility] SARS-COV-2 COVID-19 UNSPECIFIED VACCINE 2020-09-29 00:00:00 Completed [facility] SARS-COV-2 COVID-19 UNSPECIFIED VACCINE 2020-09-29 00:00:00 Completed [facility] SARS-COV-2 COVID-19 UNSPECIFIED VACCINE 2020-09-29 00:00:00 Completed [facility] SARS-COV-2 COVID-19 UNSPECIFIED VACCINE 2020-09-29 00:00:00 Completed [facility] SARS-COV-2 COVID-19 UNSPECIFIED VACCINE 2020-09-29 00:00:00 Completed [facility] SARS-COV-2 COVID-19 UNSPECIFIED VACCINE 2020-09-29 00:00:00 Completed [facility] SARS-COV-2 COVID-19 UNSPECIFIED VACCINE 2020-09-29 00:00:00 Completed [facility] SARS-COV-2 COVID-19 UNSPECIFIED VACCINE 2020-09-29 00:00:00 Completed [facility] SARS-COV-2 COVID-19 UNSPECIFIED VACCINE 2020-09-29 00:00:00 Completed [facility] SARS-COV-2 COVID-19 UNSPECIFIED VACCINE 2020-09-29 00:00:00 Completed [facility] SARS-COV-2 COVID-19 UNSPECIFIED VACCINE 2020-09-29 00:00:00 Completed [facility] SARS-COV-2 COVID-19 UNSPECIFIED VACCINE 2020-09-29 00:00:00 Completed [facility] SARS-COV-2 COVID-19 UNSPECIFIED VACCINE 2020-09-29 00:00:00 Completed [facility] SARS-COV-2 COVID-19 UNSPECIFIED VACCINE 2020-09-29 00:00:00 Completed [facility] SARS-COV-2 COVID-19 UNSPECIFIED VACCINE 2020-09-29 00:00:00 Completed [facility] SARS-COV-2 COVID-19 UNSPECIFIED VACCINE 2020-09-29 00:00:00 Completed [facility] SARS-COV-2 COVID-19 UNSPECIFIED VACCINE 2020-09-29 00:00:00 Completed [facility] SARS-COV-2 COVID-19 UNSPECIFIED VACCINE 2020-09-29 00:00:00 Completed [facility] SARS-COV-2 COVID-19 UNSPECIFIED VACCINE 2020-09-29 00:00:00 Completed [facility] SARS-COV-2 COVID-19 UNSPECIFIED VACCINE 2020-09-29 00:00:00 Completed [facility] SARS-COV-2 COVID-19 UNSPECIFIED VACCINE 2020-09-29 00:00:00 Completed [facility] SARS-COV-2 COVID-19 UNSPECIFIED VACCINE 2020-09-29 00:00:00 Completed [facility] SARS-COV-2 COVID-19 UNSPECIFIED VACCINE 2020-09-29 00:00:00 Completed [facility] SARS-COV-2 COVID-19 UNSPECIFIED VACCINE 2020-09-29 00:00:00 Completed [facility] SARS-COV-2 COVID-19 UNSPECIFIED VACCINE 2020-09-29 00:00:00 Completed [facility] SARS-COV-2 COVID-19 UNSPECIFIED VACCINE 2020-09-29 00:00:00 Completed [facility] SARS-COV-2 COVID-19 UNSPECIFIED VACCINE 2020-09-29 00:00:00 Completed [facility] SARS-COV-2 COVID-19 UNSPECIFIED VACCINE 2020-09-29 00:00:00 Completed [facility] SARS-COV-2 COVID-19 UNSPECIFIED VACCINE 2020-09-29 00:00:00 Completed [facility] SARS-COV-2 COVID-19 UNSPECIFIED VACCINE 2020-09-29 00:00:00 Completed [facility] SARS-COV-2 COVID-19 UNSPECIFIED VACCINE 2020-09-29 00:00:00 Completed [facility] SARS-COV-2 COVID-19 UNSPECIFIED VACCINE 2020-09-29 00:00:00 Completed [facility] SARS-COV-2 COVID-19 UNSPECIFIED VACCINE 2020-09-29 00:00:00 Completed [facility] SARS-COV-2 COVID-19 UNSPECIFIED VACCINE 2020-09-29 00:00:00 Completed [facility] SARS-COV-2 COVID-19 UNSPECIFIED VACCINE 2020-09-29 00:00:00 Completed [facility] SARS-COV-2 COVID-19 UNSPECIFIED VACCINE 2020-09-29 00:00:00 Completed [facility] SARS-COV-2 COVID-19 UNSPECIFIED VACCINE 2020-09-29 00:00:00 Completed [facility] SARS-COV-2 COVID-19 UNSPECIFIED VACCINE 2020-09-29 00:00:00 Completed [facility] SARS-COV-2 COVID-19 UNSPECIFIED VACCINE 2020-09-29 00:00:00 Completed [facility] SARS-COV-2 COVID-19 UNSPECIFIED VACCINE 2020-09-29 00:00:00 Completed [facility] SARS-COV-2 COVID-19 UNSPECIFIED VACCINE 2020-09-29 00:00:00 Completed [facility] SARS-COV-2 COVID-19 UNSPECIFIED VACCINE 2020-09-29 00:00:00 Completed [facility] SARS-COV-2 COVID-19 UNSPECIFIED VACCINE 2020-09-29 00:00:00 Completed [facility] SARS-COV-2 COVID-19 VACCINE - (MODERNA) 2020-09-29 00:00:00 Completed [facility] SARS-COV-2 COVID-19 UNSPECIFIED VACCINE 2020-09-29 00:00:00 Completed [facility] SARS-COV-2 COVID-19 VACCINE - (MODERNA) 2020-09-29 00:00:00 Completed [facility] SARS-COV-2 COVID-19 UNSPECIFIED VACCINE 2020-09-29 00:00:00 Completed [facility] SARS-COV-2 COVID-19 VACCINE - (MODERNA) 2020-09-29 00:00:00 Completed [facility] SARS-COV-2 COVID-19 VACCINE - (MODERNA) 2020-09-29 00:00:00 Completed [facility] SARS-COV-2 COVID-19 UNSPECIFIED VACCINE 2020-09-29 00:00:00 Completed [facility] SARS-COV-2 COVID-19 VACCINE - (MODERNA) 2020-09-29 00:00:00 Completed [facility] SARS-COV-2 COVID-19 UNSPECIFIED VACCINE 2020-09-29 00:00:00 Completed [facility] SARS-COV-2 COVID-19 VACCINE - (MODERNA) 2020-09-29 00:00:00 Completed [facility] SARS-COV-2 COVID-19 UNSPECIFIED VACCINE 2020-09-29 00:00:00 Completed [facility] SARS-COV-2 COVID-19 VACCINE - (MODERNA) 2020-09-29 00:00:00 Completed [facility] SARS-COV-2 COVID-19 UNSPECIFIED VACCINE 2020-09-29 00:00:00 Completed [facility] SARS-COV-2 COVID-19 VACCINE - (MODERNA) 2020-09-29 00:00:00 Completed [facility] SARS-COV-2 COVID-19 UNSPECIFIED VACCINE 2020-09-29 00:00:00 Completed [facility] SARS-COV-2 COVID-19 VACCINE - (MODERNA) 2020-09-29 00:00:00 Completed [facility] SARS-COV-2 COVID-19 UNSPECIFIED VACCINE 2020-09-29 00:00:00 Completed [facility] SARS-COV-2 COVID-19 VACCINE - (MODERNA) 2020-09-29 00:00:00 Completed [facility] SARS-COV-2 COVID-19 UNSPECIFIED VACCINE 2020-09-29 00:00:00 Completed [facility] SARS-COV-2 COVID-19 VACCINE - (MODERNA) 2020-09-29 00:00:00 Completed [facility] SARS-COV-2 COVID-19 UNSPECIFIED VACCINE 2020-09-29 00:00:00 Completed [facility] SARS-COV-2 COVID-19 VACCINE - (MODERNA) 2020-09-29 00:00:00 Completed [facility] SARS-COV-2 COVID-19 UNSPECIFIED VACCINE 2020-09-29 00:00:00 Completed [facility] SARS-COV-2 COVID-19 VACCINE - (MODERNA) 2020-09-29 00:00:00 Completed [facility] SARS-COV-2 COVID-19 UNSPECIFIED VACCINE 2020-09-29 00:00:00 Completed [facility] SARS-COV-2 COVID-19 VACCINE - (MODERNA) 2020-09-29 00:00:00 Completed [facility] SARS-COV-2 COVID-19 UNSPECIFIED VACCINE 2020-09-29 00:00:00 Completed [facility] SARS-COV-2 COVID-19 VACCINE - (MODERNA) 2020-09-29 00:00:00 Completed [facility] SARS-COV-2 COVID-19 UNSPECIFIED VACCINE 2020-09-29 00:00:00 Completed [facility] SARS-COV-2 COVID-19 VACCINE - (MODERNA) 2020-09-29 00:00:00 Completed [facility] SARS-COV-2 COVID-19 UNSPECIFIED VACCINE 2020-09-29 00:00:00 Completed [facility] SARS-COV-2 COVID-19 VACCINE - (MODERNA) 2020-09-29 00:00:00 Completed [facility] SARS-COV-2 COVID-19 UNSPECIFIED VACCINE 2020-09-29 00:00:00 Completed [facility] SARS-COV-2 COVID-19 VACCINE - (MODERNA) 2020-09-29 00:00:00 Completed [facility] SARS-COV-2 COVID-19 UNSPECIFIED VACCINE 2020-09-29 00:00:00 Completed [facility] SARS-COV-2 COVID-19 VACCINE - (MODERNA) 2020-09-29 00:00:00 Completed [facility] SARS-COV-2 COVID-19 UNSPECIFIED VACCINE 2020-09-29 00:00:00 Completed [facility] SARS-COV-2 COVID-19 VACCINE - (MODERNA) 2020-09-29 00:00:00 Completed [facility] SARS-COV-2 COVID-19 UNSPECIFIED VACCINE 2020-09-29 00:00:00 Completed [facility] SARS-COV-2 COVID-19 VACCINE - (MODERNA) 2020-09-29 00:00:00 Completed [facility] SARS-COV-2 COVID-19 UNSPECIFIED VACCINE 2020-09-29 00:00:00 Completed [facility] SARS-COV-2 COVID-19 VACCINE - (MODERNA) 2020-09-29 00:00:00 Completed [facility] SARS-COV-2 COVID-19 UNSPECIFIED VACCINE 2020-09-29 00:00:00 Completed [facility] SARS-COV-2 COVID-19 VACCINE - (MODERNA) 2020-09-29 00:00:00 Completed [facility] SARS-COV-2 COVID-19 UNSPECIFIED VACCINE 2020-09-29 00:00:00 Completed [facility] SARS-COV-2 COVID-19 VACCINE - (MODERNA) 2020-09-29 00:00:00 Completed [facility] SARS-COV-2 COVID-19 UNSPECIFIED VACCINE 2020-09-29 00:00:00 Completed [facility] SARS-COV-2 COVID-19 VACCINE - (MODERNA) 2020-09-29 00:00:00 Completed [facility] SARS-COV-2 COVID-19 UNSPECIFIED VACCINE 2020-09-29 00:00:00 Completed [facility] SARS-COV-2 COVID-19 VACCINE - (MODERNA) 2020-09-29 00:00:00 Completed [facility] SARS-COV-2 COVID-19 UNSPECIFIED VACCINE 2020-09-29 00:00:00 Completed [facility] SARS-COV-2 COVID-19 VACCINE - (MODERNA) 2020-09-29 00:00:00 Completed [facility] SARS-COV-2 COVID-19 UNSPECIFIED VACCINE 2020-09-29 00:00:00 Completed [facility] SARS-COV-2 COVID-19 VACCINE - (MODERNA) 2020-09-29 00:00:00 Completed [facility] SARS-COV-2 COVID-19 UNSPECIFIED VACCINE 2020-09-29 00:00:00 Completed [facility] SARS-COV-2 COVID-19 VACCINE - (MODERNA) 2020-09-29 00:00:00 Completed [facility] SARS-COV-2 COVID-19 UNSPECIFIED VACCINE 2020-09-29 00:00:00 Completed [facility] SARS-COV-2 COVID-19 VACCINE - (MODERNA) 2020-09-29 00:00:00 Completed [facility] SARS-COV-2 COVID-19 UNSPECIFIED VACCINE 2020-09-29 00:00:00 Completed [facility] SARS-COV-2 COVID-19 VACCINE - (MODERNA) 2020-09-29 00:00:00 Completed [facility] SARS-COV-2 COVID-19 UNSPECIFIED VACCINE 2020-09-29 00:00:00 Completed [facility] SARS-COV-2 COVID-19 VACCINE - (MODERNA) 2020-09-29 00:00:00 Completed [facility] SARS-COV-2 COVID-19 UNSPECIFIED VACCINE 2020-09-29 00:00:00 Completed [facility] SARS-COV-2 COVID-19 VACCINE - (MODERNA) 2020-09-29 00:00:00 Completed [facility] SARS-COV-2 COVID-19 UNSPECIFIED VACCINE 2020-09-29 00:00:00 Completed [facility] SARS-COV-2 COVID-19 VACCINE - (MODERNA) 2020-09-29 00:00:00 Completed [facility] SARS-COV-2 COVID-19 UNSPECIFIED VACCINE 2020-09-29 00:00:00 Completed [facility] SARS-COV-2 COVID-19 VACCINE - (MODERNA) 2020-09-29 00:00:00 Completed [facility] SARS-COV-2 COVID-19 UNSPECIFIED VACCINE 2020-09-29 00:00:00 Completed [facility] SARS-COV-2 COVID-19 VACCINE - (MODERNA) 2020-09-29 00:00:00 Completed [facility] SARS-COV-2 COVID-19 UNSPECIFIED VACCINE 2020-09-29 00:00:00 Completed [facility] SARS-COV-2 COVID-19 VACCINE - (MODERNA) 2020-09-29 00:00:00 Completed [facility] SARS-COV-2 COVID-19 UNSPECIFIED VACCINE 2020-09-29 00:00:00 Completed [facility] SARS-COV-2 COVID-19 VACCINE - (MODERNA) 2020-09-29 00:00:00 Completed [facility] SARS-COV-2 COVID-19 UNSPECIFIED VACCINE 2020-09-29 00:00:00 Completed [facility] SARS-COV-2 COVID-19 VACCINE - (MODERNA) 2020-09-29 00:00:00 Completed [facility] SARS-COV-2 COVID-19 UNSPECIFIED VACCINE 2020-09-29 00:00:00 Completed [facility] SARS-COV-2 COVID-19 VACCINE - (MODERNA) 2020-09-29 00:00:00 Completed [facility] SARS-COV-2 COVID-19 UNSPECIFIED VACCINE 2020-09-29 00:00:00 Completed [facility] SARS-COV-2 COVID-19 VACCINE - (MODERNA) 2020-09-29 00:00:00 Completed [facility] SARS-COV-2 COVID-19 UNSPECIFIED VACCINE 2020-09-29 00:00:00 Completed [facility] SARS-COV-2 COVID-19 VACCINE - (MODERNA) 2020-09-29 00:00:00 Completed [facility] SARS-COV-2 COVID-19 UNSPECIFIED VACCINE 2020-09-29 00:00:00 Completed [facility] SARS-COV-2 COVID-19 VACCINE - (MODERNA) 2020-09-29 00:00:00 Completed [facility] SARS-COV-2 COVID-19 UNSPECIFIED VACCINE 2020-09-29 00:00:00 Completed [facility] SARS-COV-2 COVID-19 VACCINE - (MODERNA) 2020-09-29 00:00:00 Completed [facility] SARS-COV-2 COVID-19 UNSPECIFIED VACCINE 2020-09-29 00:00:00 Completed [facility] SARS-COV-2 COVID-19 VACCINE - (MODERNA) 2020-09-29 00:00:00 Completed [facility] SARS-COV-2 COVID-19 UNSPECIFIED VACCINE 2020-09-29 00:00:00 Completed [facility] SARS-COV-2 COVID-19 VACCINE - (MODERNA) 2020-09-29 00:00:00 Completed [facility] SARS-COV-2 COVID-19 UNSPECIFIED VACCINE 2020-09-29 00:00:00 Completed [facility] SARS-COV-2 COVID-19 VACCINE - (MODERNA) 2020-09-29 00:00:00 Completed [facility] SARS-COV-2 COVID-19 UNSPECIFIED VACCINE 2020-09-29 00:00:00 Completed [facility] SARS-COV-2 COVID-19 VACCINE - (MODERNA) 2020-09-29 00:00:00 Completed [facility] SARS-COV-2 COVID-19 UNSPECIFIED VACCINE 2020-09-29 00:00:00 Completed [facility] SARS-COV-2 COVID-19 VACCINE - (MODERNA) 2020-09-29 00:00:00 Completed [facility] SARS-COV-2 COVID-19 UNSPECIFIED VACCINE 2020-09-29 00:00:00 Completed [facility] SARS-COV-2 COVID-19 VACCINE - (MODERNA) 2020-09-29 00:00:00 Completed [facility] SARS-COV-2 COVID-19 UNSPECIFIED VACCINE 2020-09-29 00:00:00 Completed [facility] SARS-COV-2 COVID-19 VACCINE - (MODERNA) 2020-09-29 00:00:00 Completed [facility] SARS-COV-2 COVID-19 UNSPECIFIED VACCINE 2020-09-29 00:00:00 Completed [facility] SARS-COV-2 COVID-19 VACCINE - (MODERNA) 2020-09-29 00:00:00 Completed [facility] SARS-COV-2 COVID-19 UNSPECIFIED VACCINE 2020-09-29 00:00:00 Completed [facility] SARS-COV-2 COVID-19 VACCINE - (MODERNA) 2020-09-29 00:00:00 Completed [facility] SARS-COV-2 COVID-19 UNSPECIFIED VACCINE 2020-09-29 00:00:00 Completed [facility] SARS-COV-2 COVID-19 VACCINE - (MODERNA) 2020-09-29 00:00:00 Completed [facility] SARS-COV-2 COVID-19 UNSPECIFIED VACCINE 2020-09-29 00:00:00 Completed [facility] SARS-COV-2 COVID-19 VACCINE - (MODERNA) 2020-09-29 00:00:00 Completed [facility] SARS-COV-2 COVID-19 UNSPECIFIED VACCINE 2020-09-29 00:00:00 Completed [facility] SARS-COV-2 COVID-19 VACCINE - (MODERNA) 2020-09-29 00:00:00 Completed [facility] SARS-COV-2 COVID-19 UNSPECIFIED VACCINE 2020-09-29 00:00:00 Completed [facility] SARS-COV-2 COVID-19 VACCINE - (MODERNA) 2020-09-29 00:00:00 Completed [facility] SARS-COV-2 COVID-19 UNSPECIFIED VACCINE 2020-09-29 00:00:00 Completed [facility] SARS-COV-2 COVID-19 VACCINE - (MODERNA) 2020-09-29 00:00:00 Completed [facility] SARS-COV-2 COVID-19 UNSPECIFIED VACCINE 2020-09-29 00:00:00 Completed [facility] SARS-COV-2 COVID-19 VACCINE - (MODERNA) 2020-09-29 00:00:00 Completed [facility] SARS-COV-2 COVID-19 UNSPECIFIED VACCINE 2020-09-29 00:00:00 Completed [facility] SARS-COV-2 COVID-19 VACCINE - (MODERNA) 2020-09-29 00:00:00 Completed [facility] SARS-COV-2 COVID-19 UNSPECIFIED VACCINE 2020-09-29 00:00:00 Completed SARS-COV-2 COVID-19 VACCINE - (MODERNA) 2020-09-29 00:00:00 Completed SARS-COV-2 COVID-19 UNSPECIFIED VACCINE 2020-09-29 00:00:00 Completed SARS-COV-2 COVID-19 VACCINE - (MODERNA) 2020-09-29 00:00:00 Completed SARS-COV-2 COVID-19 UNSPECIFIED VACCINE 2020-09-29 00:00:00 Completed SARS-COV-2 COVID-19 VACCINE - (MODERNA) 2020-09-29 00:00:00 Completed SARS-COV-2 (COVID-19) vaccine, UNSPECIFIED SARS-COV-2 (COVID-19) vaccine, UNSPECIFIED 2020-09-29 00:00:00 Completed [facility] SARS-COV-2 (COVID-19) vaccine, UNSPECIFIED SARS-COV-2 (COVID-19) vaccine, UNSPECIFIED 2020-09-29 00:00:00 Completed [facility] COVID-19 (SARS-COV-2) vaccine, unspecified COVID-19 (SARS-COV-2) vaccine, unspecified 2020-09-29 00:00:00 Completed [facility] COVID-19 (SARS-COV-2) vaccine, unspecified COVID-19 (SARS-COV-2) vaccine, unspecified 2020-09-29 00:00:00 Completed [facility] SARS-COV-2 COVID-19 UNSPECIFIED VACCINE 2020-08-29 00:00:00 Completed [facility] SARS-COV-2 COVID-19 UNSPECIFIED VACCINE 2020-08-29 00:00:00 Completed [facility] SARS-COV-2 COVID-19 UNSPECIFIED VACCINE 2020-08-29 00:00:00 Completed [facility] SARS-COV-2 COVID-19 UNSPECIFIED VACCINE 2020-08-29 00:00:00 Completed [facility] SARS-COV-2 COVID-19 UNSPECIFIED VACCINE 2020-08-29 00:00:00 Completed [facility] SARS-COV-2 COVID-19 UNSPECIFIED VACCINE 2020-08-29 00:00:00 Completed [facility] SARS-COV-2 COVID-19 UNSPECIFIED VACCINE 2020-08-29 00:00:00 Completed [facility] SARS-COV-2 COVID-19 UNSPECIFIED VACCINE 2020-08-29 00:00:00 Completed [facility] SARS-COV-2 COVID-19 UNSPECIFIED VACCINE 2020-08-29 00:00:00 Completed [facility] SARS-COV-2 COVID-19 UNSPECIFIED VACCINE 2020-08-29 00:00:00 Completed [facility] SARS-COV-2 COVID-19 UNSPECIFIED VACCINE 2020-08-29 00:00:00 Completed [facility] SARS-COV-2 COVID-19 UNSPECIFIED VACCINE 2020-08-29 00:00:00 Completed [facility] SARS-COV-2 COVID-19 UNSPECIFIED VACCINE 2020-08-29 00:00:00 Completed [facility] SARS-COV-2 COVID-19 UNSPECIFIED VACCINE 2020-08-29 00:00:00 Completed [facility] SARS-COV-2 COVID-19 UNSPECIFIED VACCINE 2020-08-29 00:00:00 Completed [facility] SARS-COV-2 COVID-19 UNSPECIFIED VACCINE 2020-08-29 00:00:00 Completed [facility] SARS-COV-2 COVID-19 UNSPECIFIED VACCINE 2020-08-29 00:00:00 Completed [facility] SARS-COV-2 COVID-19 UNSPECIFIED VACCINE 2020-08-29 00:00:00 Completed [facility] SARS-COV-2 COVID-19 UNSPECIFIED VACCINE 2020-08-29 00:00:00 Completed [facility] SARS-COV-2 COVID-19 UNSPECIFIED VACCINE 2020-08-29 00:00:00 Completed [facility] SARS-COV-2 COVID-19 UNSPECIFIED VACCINE 2020-08-29 00:00:00 Completed [facility] SARS-COV-2 COVID-19 UNSPECIFIED VACCINE 2020-08-29 00:00:00 Completed [facility] SARS-COV-2 COVID-19 UNSPECIFIED VACCINE 2020-08-29 00:00:00 Completed [facility] SARS-COV-2 COVID-19 UNSPECIFIED VACCINE 2020-08-29 00:00:00 Completed [facility] SARS-COV-2 COVID-19 UNSPECIFIED VACCINE 2020-08-29 00:00:00 Completed [facility] SARS-COV-2 COVID-19 UNSPECIFIED VACCINE 2020-08-29 00:00:00 Completed [facility] SARS-COV-2 COVID-19 UNSPECIFIED VACCINE 2020-08-29 00:00:00 Completed [facility] SARS-COV-2 COVID-19 UNSPECIFIED VACCINE 2020-08-29 00:00:00 Completed [facility] SARS-COV-2 COVID-19 UNSPECIFIED VACCINE 2020-08-29 00:00:00 Completed [facility] SARS-COV-2 COVID-19 UNSPECIFIED VACCINE 2020-08-29 00:00:00 Completed [facility] SARS-COV-2 COVID-19 UNSPECIFIED VACCINE 2020-08-29 00:00:00 Completed [facility] SARS-COV-2 COVID-19 UNSPECIFIED VACCINE 2020-08-29 00:00:00 Completed [facility] SARS-COV-2 COVID-19 UNSPECIFIED VACCINE 2020-08-29 00:00:00 Completed [facility] SARS-COV-2 COVID-19 UNSPECIFIED VACCINE 2020-08-29 00:00:00 Completed [facility] SARS-COV-2 COVID-19 UNSPECIFIED VACCINE 2020-08-29 00:00:00 Completed [facility] SARS-COV-2 COVID-19 UNSPECIFIED VACCINE 2020-08-29 00:00:00 Completed [facility] SARS-COV-2 COVID-19 UNSPECIFIED VACCINE 2020-08-29 00:00:00 Completed [facility] SARS-COV-2 COVID-19 UNSPECIFIED VACCINE 2020-08-29 00:00:00 Completed [facility] SARS-COV-2 COVID-19 UNSPECIFIED VACCINE 2020-08-29 00:00:00 Completed [facility] SARS-COV-2 COVID-19 UNSPECIFIED VACCINE 2020-08-29 00:00:00 Completed [facility] SARS-COV-2 COVID-19 UNSPECIFIED VACCINE 2020-08-29 00:00:00 Completed [facility] SARS-COV-2 COVID-19 UNSPECIFIED VACCINE 2020-08-29 00:00:00 Completed [facility] SARS-COV-2 COVID-19 UNSPECIFIED VACCINE 2020-08-29 00:00:00 Completed [facility] SARS-COV-2 COVID-19 UNSPECIFIED VACCINE 2020-08-29 00:00:00 Completed [facility] SARS-COV-2 COVID-19 UNSPECIFIED VACCINE 2020-08-29 00:00:00 Completed [facility] SARS-COV-2 COVID-19 UNSPECIFIED VACCINE 2020-08-29 00:00:00 Completed [facility] SARS-COV-2 COVID-19 UNSPECIFIED VACCINE 2020-08-29 00:00:00 Completed [facility] SARS-COV-2 COVID-19 UNSPECIFIED VACCINE 2020-08-29 00:00:00 Completed [facility] SARS-COV-2 COVID-19 UNSPECIFIED VACCINE 2020-08-29 00:00:00 Completed [facility] SARS-COV-2 COVID-19 UNSPECIFIED VACCINE 2020-08-29 00:00:00 Completed [facility] SARS-COV-2 COVID-19 UNSPECIFIED VACCINE 2020-08-29 00:00:00 Completed [facility] SARS-COV-2 COVID-19 UNSPECIFIED VACCINE 2020-08-29 00:00:00 Completed [facility] SARS-COV-2 COVID-19 UNSPECIFIED VACCINE 2020-08-29 00:00:00 Completed [facility] SARS-COV-2 COVID-19 UNSPECIFIED VACCINE 2020-08-29 00:00:00 Completed [facility] SARS-COV-2 COVID-19 UNSPECIFIED VACCINE 2020-08-29 00:00:00 Completed [facility] SARS-COV-2 COVID-19 UNSPECIFIED VACCINE 2020-08-29 00:00:00 Completed [facility] SARS-COV-2 COVID-19 UNSPECIFIED VACCINE 2020-08-29 00:00:00 Completed [facility] SARS-COV-2 COVID-19 UNSPECIFIED VACCINE 2020-08-29 00:00:00 Completed [facility] SARS-COV-2 COVID-19 UNSPECIFIED VACCINE 2020-08-29 00:00:00 Completed [facility] SARS-COV-2 COVID-19 UNSPECIFIED VACCINE 2020-08-29 00:00:00 Completed [facility] SARS-COV-2 COVID-19 UNSPECIFIED VACCINE 2020-08-29 00:00:00 Completed [facility] SARS-COV-2 COVID-19 UNSPECIFIED VACCINE 2020-08-29 00:00:00 Completed [facility] SARS-COV-2 COVID-19 UNSPECIFIED VACCINE 2020-08-29 00:00:00 Completed [facility] SARS-COV-2 COVID-19 UNSPECIFIED VACCINE 2020-08-29 00:00:00 Completed [facility] SARS-COV-2 (COVID-19) vaccine, UNSPECIFIED SARS-COV-2 (COVID-19) vaccine, UNSPECIFIED 2020-08-29 00:00:00 Completed [facility] SARS-COV-2 COVID-19 UNSPECIFIED VACCINE 2020-08-29 00:00:00 Completed [facility] SARS-COV-2 COVID-19 UNSPECIFIED VACCINE 2020-08-29 00:00:00 Completed [facility] SARS-COV-2 COVID-19 UNSPECIFIED VACCINE 2020-08-29 00:00:00 Completed [facility] SARS-COV-2 COVID-19 UNSPECIFIED VACCINE 2020-08-29 00:00:00 Completed [facility] SARS-COV-2 COVID-19 VACCINE - (MODERNA) 2020-08-29 00:00:00 Completed [facility] SARS-COV-2 COVID-19 UNSPECIFIED VACCINE 2020-08-29 00:00:00 Completed [facility] SARS-COV-2 COVID-19 VACCINE - (MODERNA) 2020-08-29 00:00:00 Completed [facility] SARS-COV-2 COVID-19 UNSPECIFIED VACCINE 2020-08-29 00:00:00 Completed [facility] SARS-COV-2 COVID-19 VACCINE - (MODERNA) 2020-08-29 00:00:00 Completed [facility] SARS-COV-2 COVID-19 VACCINE - (MODERNA) 2020-08-29 00:00:00 Completed [facility] SARS-COV-2 (COVID-19) vaccine, UNSPECIFIED SARS-COV-2 (COVID-19) vaccine, UNSPECIFIED 2020-08-29 00:00:00 Completed [facility] SARS-COV-2 COVID-19 UNSPECIFIED VACCINE 2020-08-29 00:00:00 Completed [facility] SARS-COV-2 COVID-19 VACCINE - (MODERNA) 2020-08-29 00:00:00 Completed [facility] SARS-COV-2 COVID-19 UNSPECIFIED VACCINE 2020-08-29 00:00:00 Completed [facility] SARS-COV-2 COVID-19 VACCINE - (MODERNA) 2020-08-29 00:00:00 Completed [facility] SARS-COV-2 COVID-19 UNSPECIFIED VACCINE 2020-08-29 00:00:00 Completed [facility] SARS-COV-2 COVID-19 VACCINE - (MODERNA) 2020-08-29 00:00:00 Completed [facility] SARS-COV-2 COVID-19 UNSPECIFIED VACCINE 2020-08-29 00:00:00 Completed [facility] SARS-COV-2 COVID-19 VACCINE - (MODERNA) 2020-08-29 00:00:00 Completed [facility] SARS-COV-2 COVID-19 UNSPECIFIED VACCINE 2020-08-29 00:00:00 Completed [facility] SARS-COV-2 COVID-19 VACCINE - (MODERNA) 2020-08-29 00:00:00 Completed [facility] COVID-19 (SARS-COV-2) vaccine, unspecified COVID-19 (SARS-COV-2) vaccine, unspecified 2020-08-29 00:00:00 Completed [facility] SARS-COV-2 COVID-19 UNSPECIFIED VACCINE 2020-08-29 00:00:00 Completed [facility] SARS-COV-2 COVID-19 VACCINE - (MODERNA) 2020-08-29 00:00:00 Completed [facility] SARS-COV-2 COVID-19 UNSPECIFIED VACCINE 2020-08-29 00:00:00 Completed [facility] SARS-COV-2 COVID-19 VACCINE - (MODERNA) 2020-08-29 00:00:00 Completed [facility] SARS-COV-2 COVID-19 UNSPECIFIED VACCINE 2020-08-29 00:00:00 Completed [facility] SARS-COV-2 COVID-19 VACCINE - (MODERNA) 2020-08-29 00:00:00 Completed [facility] SARS-COV-2 COVID-19 UNSPECIFIED VACCINE 2020-08-29 00:00:00 Completed [facility] SARS-COV-2 COVID-19 VACCINE - (MODERNA) 2020-08-29 00:00:00 Completed [facility] SARS-COV-2 COVID-19 UNSPECIFIED VACCINE 2020-08-29 00:00:00 Completed [facility] SARS-COV-2 COVID-19 VACCINE - (MODERNA) 2020-08-29 00:00:00 Completed [facility] COVID-19 (SARS-COV-2) vaccine, unspecified COVID-19 (SARS-COV-2) vaccine, unspecified 2020-08-29 00:00:00 Completed [facility] SARS-COV-2 COVID-19 UNSPECIFIED VACCINE 2020-08-29 00:00:00 Completed [facility] SARS-COV-2 COVID-19 VACCINE - (MODERNA) 2020-08-29 00:00:00 Completed [facility] SARS-COV-2 COVID-19 UNSPECIFIED VACCINE 2020-08-29 00:00:00 Completed [facility] SARS-COV-2 COVID-19 VACCINE - (MODERNA) 2020-08-29 00:00:00 Completed [facility] SARS-COV-2 COVID-19 UNSPECIFIED VACCINE 2020-08-29 00:00:00 Completed [facility] SARS-COV-2 COVID-19 VACCINE - (MODERNA) 2020-08-29 00:00:00 Completed [facility] SARS-COV-2 COVID-19 UNSPECIFIED VACCINE 2020-08-29 00:00:00 Completed [facility] SARS-COV-2 COVID-19 VACCINE - (MODERNA) 2020-08-29 00:00:00 Completed [facility] SARS-COV-2 COVID-19 UNSPECIFIED VACCINE 2020-08-29 00:00:00 Completed [facility] SARS-COV-2 COVID-19 VACCINE - (MODERNA) 2020-08-29 00:00:00 Completed [facility] SARS-COV-2 COVID-19 UNSPECIFIED VACCINE 2020-08-29 00:00:00 Completed [facility] SARS-COV-2 COVID-19 VACCINE - (MODERNA) 2020-08-29 00:00:00 Completed [facility] SARS-COV-2 COVID-19 UNSPECIFIED VACCINE 2020-08-29 00:00:00 Completed [facility] SARS-COV-2 COVID-19 VACCINE - (MODERNA) 2020-08-29 00:00:00 Completed [facility] SARS-COV-2 COVID-19 UNSPECIFIED VACCINE 2020-08-29 00:00:00 Completed [facility] SARS-COV-2 COVID-19 VACCINE - (MODERNA) 2020-08-29 00:00:00 Completed [facility] SARS-COV-2 COVID-19 UNSPECIFIED VACCINE 2020-08-29 00:00:00 Completed [facility] SARS-COV-2 COVID-19 VACCINE - (MODERNA) 2020-08-29 00:00:00 Completed [facility] SARS-COV-2 COVID-19 UNSPECIFIED VACCINE 2020-08-29 00:00:00 Completed [facility] SARS-COV-2 COVID-19 VACCINE - (MODERNA) 2020-08-29 00:00:00 Completed [facility] SARS-COV-2 COVID-19 UNSPECIFIED VACCINE 2020-08-29 00:00:00 Completed [facility] SARS-COV-2 COVID-19 VACCINE - (MODERNA) 2020-08-29 00:00:00 Completed [facility] SARS-COV-2 COVID-19 UNSPECIFIED VACCINE 2020-08-29 00:00:00 Completed [facility] SARS-COV-2 COVID-19 VACCINE - (MODERNA) 2020-08-29 00:00:00 Completed [facility] SARS-COV-2 COVID-19 UNSPECIFIED VACCINE 2020-08-29 00:00:00 Completed [facility] SARS-COV-2 COVID-19 VACCINE - (MODERNA) 2020-08-29 00:00:00 Completed [facility] SARS-COV-2 COVID-19 UNSPECIFIED VACCINE 2020-08-29 00:00:00 Completed [facility] SARS-COV-2 COVID-19 VACCINE - (MODERNA) 2020-08-29 00:00:00 Completed [facility] SARS-COV-2 COVID-19 UNSPECIFIED VACCINE 2020-08-29 00:00:00 Completed [facility] SARS-COV-2 COVID-19 VACCINE - (MODERNA) 2020-08-29 00:00:00 Completed [facility] SARS-COV-2 COVID-19 UNSPECIFIED VACCINE 2020-08-29 00:00:00 Completed [facility] SARS-COV-2 COVID-19 VACCINE - (MODERNA) 2020-08-29 00:00:00 Completed [facility] SARS-COV-2 COVID-19 UNSPECIFIED VACCINE 2020-08-29 00:00:00 Completed [facility] SARS-COV-2 COVID-19 VACCINE - (MODERNA) 2020-08-29 00:00:00 Completed [facility] SARS-COV-2 COVID-19 UNSPECIFIED VACCINE 2020-08-29 00:00:00 Completed [facility] SARS-COV-2 COVID-19 VACCINE - (MODERNA) 2020-08-29 00:00:00 Completed [facility] SARS-COV-2 COVID-19 UNSPECIFIED VACCINE 2020-08-29 00:00:00 Completed [facility] SARS-COV-2 COVID-19 VACCINE - (MODERNA) 2020-08-29 00:00:00 Completed [facility] SARS-COV-2 COVID-19 UNSPECIFIED VACCINE 2020-08-29 00:00:00 Completed [facility] SARS-COV-2 COVID-19 VACCINE - (MODERNA) 2020-08-29 00:00:00 Completed [facility] SARS-COV-2 COVID-19 UNSPECIFIED VACCINE 2020-08-29 00:00:00 Completed [facility] SARS-COV-2 COVID-19 VACCINE - (MODERNA) 2020-08-29 00:00:00 Completed [facility] SARS-COV-2 COVID-19 UNSPECIFIED VACCINE 2020-08-29 00:00:00 Completed [facility] SARS-COV-2 COVID-19 VACCINE - (MODERNA) 2020-08-29 00:00:00 Completed [facility] SARS-COV-2 COVID-19 UNSPECIFIED VACCINE 2020-08-29 00:00:00 Completed [facility] SARS-COV-2 COVID-19 VACCINE - (MODERNA) 2020-08-29 00:00:00 Completed [facility] SARS-COV-2 COVID-19 UNSPECIFIED VACCINE 2020-08-29 00:00:00 Completed [facility] SARS-COV-2 COVID-19 VACCINE - (MODERNA) 2020-08-29 00:00:00 Completed [facility] SARS-COV-2 COVID-19 UNSPECIFIED VACCINE 2020-08-29 00:00:00 Completed [facility] SARS-COV-2 COVID-19 VACCINE - (MODERNA) 2020-08-29 00:00:00 Completed [facility] SARS-COV-2 COVID-19 UNSPECIFIED VACCINE 2020-08-29 00:00:00 Completed [facility] SARS-COV-2 COVID-19 VACCINE - (MODERNA) 2020-08-29 00:00:00 Completed [facility] SARS-COV-2 COVID-19 UNSPECIFIED VACCINE 2020-08-29 00:00:00 Completed [facility] SARS-COV-2 COVID-19 VACCINE - (MODERNA) 2020-08-29 00:00:00 Completed [facility] SARS-COV-2 COVID-19 UNSPECIFIED VACCINE 2020-08-29 00:00:00 Completed [facility] SARS-COV-2 COVID-19 VACCINE - (MODERNA) 2020-08-29 00:00:00 Completed [facility] SARS-COV-2 COVID-19 UNSPECIFIED VACCINE 2020-08-29 00:00:00 Completed [facility] SARS-COV-2 COVID-19 VACCINE - (MODERNA) 2020-08-29 00:00:00 Completed [facility] SARS-COV-2 COVID-19 UNSPECIFIED VACCINE 2020-08-29 00:00:00 Completed [facility] SARS-COV-2 COVID-19 VACCINE - (MODERNA) 2020-08-29 00:00:00 Completed [facility] SARS-COV-2 COVID-19 UNSPECIFIED VACCINE 2020-08-29 00:00:00 Completed [facility] SARS-COV-2 COVID-19 VACCINE - (MODERNA) 2020-08-29 00:00:00 Completed [facility] SARS-COV-2 COVID-19 UNSPECIFIED VACCINE 2020-08-29 00:00:00 Completed [facility] SARS-COV-2 COVID-19 VACCINE - (MODERNA) 2020-08-29 00:00:00 Completed [facility] SARS-COV-2 COVID-19 UNSPECIFIED VACCINE 2020-08-29 00:00:00 Completed [facility] SARS-COV-2 COVID-19 VACCINE - (MODERNA) 2020-08-29 00:00:00 Completed [facility] SARS-COV-2 COVID-19 UNSPECIFIED VACCINE 2020-08-29 00:00:00 Completed [facility] SARS-COV-2 COVID-19 VACCINE - (MODERNA) 2020-08-29 00:00:00 Completed [facility] SARS-COV-2 COVID-19 UNSPECIFIED VACCINE 2020-08-29 00:00:00 Completed [facility] SARS-COV-2 COVID-19 VACCINE - (MODERNA) 2020-08-29 00:00:00 Completed [facility] SARS-COV-2 COVID-19 UNSPECIFIED VACCINE 2020-08-29 00:00:00 Completed [facility] SARS-COV-2 COVID-19 VACCINE - (MODERNA) 2020-08-29 00:00:00 Completed [facility] SARS-COV-2 COVID-19 UNSPECIFIED VACCINE 2020-08-29 00:00:00 Completed [facility] SARS-COV-2 COVID-19 VACCINE - (MODERNA) 2020-08-29 00:00:00 Completed [facility] SARS-COV-2 COVID-19 UNSPECIFIED VACCINE 2020-08-29 00:00:00 Completed [facility] SARS-COV-2 COVID-19 VACCINE - (MODERNA) 2020-08-29 00:00:00 Completed [facility] SARS-COV-2 COVID-19 UNSPECIFIED VACCINE 2020-08-29 00:00:00 Completed [facility] SARS-COV-2 COVID-19 VACCINE - (MODERNA) 2020-08-29 00:00:00 Completed [facility] SARS-COV-2 COVID-19 UNSPECIFIED VACCINE 2020-08-29 00:00:00 Completed [facility] SARS-COV-2 COVID-19 VACCINE - (MODERNA) 2020-08-29 00:00:00 Completed [facility] SARS-COV-2 COVID-19 UNSPECIFIED VACCINE 2020-08-29 00:00:00 Completed [facility] SARS-COV-2 COVID-19 VACCINE - (MODERNA) 2020-08-29 00:00:00 Completed [facility] SARS-COV-2 COVID-19 UNSPECIFIED VACCINE 2020-08-29 00:00:00 Completed [facility] SARS-COV-2 COVID-19 VACCINE - (MODERNA) 2020-08-29 00:00:00 Completed [facility] SARS-COV-2 COVID-19 UNSPECIFIED VACCINE 2020-08-29 00:00:00 Completed [facility] SARS-COV-2 COVID-19 VACCINE - (MODERNA) 2020-08-29 00:00:00 Completed [facility] SARS-COV-2 COVID-19 UNSPECIFIED VACCINE 2020-08-29 00:00:00 Completed [facility] SARS-COV-2 COVID-19 VACCINE - (MODERNA) 2020-08-29 00:00:00 Completed [facility] SARS-COV-2 COVID-19 UNSPECIFIED VACCINE 2020-08-29 00:00:00 Completed [facility] SARS-COV-2 COVID-19 VACCINE - (MODERNA) 2020-08-29 00:00:00 Completed [facility] SARS-COV-2 COVID-19 UNSPECIFIED VACCINE 2020-08-29 00:00:00 Completed [facility] SARS-COV-2 COVID-19 VACCINE - (MODERNA) 2020-08-29 00:00:00 Completed [facility] SARS-COV-2 COVID-19 UNSPECIFIED VACCINE 2020-08-29 00:00:00 Completed [facility] SARS-COV-2 COVID-19 VACCINE - (MODERNA) 2020-08-29 00:00:00 Completed [facility] SARS-COV-2 COVID-19 UNSPECIFIED VACCINE 2020-08-29 00:00:00 Completed SARS-COV-2 COVID-19 VACCINE - (MODERNA) 2020-08-29 00:00:00 Completed [facility] SARS-COV-2 COVID-19 UNSPECIFIED VACCINE 2020-08-29 00:00:00 Completed SARS-COV-2 COVID-19 VACCINE - (MODERNA) 2020-08-29 00:00:00 Completed [facility] Influenza, injectable, MDCK, preservative free, quadrivalent Influenza, injectable, MDCK, preservative free, quadrivalent 2020-03-27 12:37:23 Completed [facility] Influenza, injectable, MDCK, preservative free, quadrivalent Influenza, injectable, MDCK, preservative free, quadrivalent 2020-03-27 12:37:23 Completed [facility] Influenza, injectable, MDCK, preservative free, quadrivalent Influenza, injectable, MDCK, preservative free, quadrivalent 2020-03-27 12:37:23 Completed [facility] Influenza, injectable, MDCK, preservative free, quadrivalent Influenza, injectable, MDCK, preservative free, quadrivalent 2020-03-27 12:37:23 Completed [facility] Influenza, injectable, MDCK, preservative free, quadrivalent Influenza, injectable, MDCK, preservative free, quadrivalent 2020-03-27 12:37:23 Completed [facility] Influenza Virus Vaccine 2020-03-27 00:00:00 Completed [facility] Influenza Virus Vaccine 2020-03-27 00:00:00 Completed [facility] Influenza Virus Vaccine 2020-03-27 00:00:00 Completed [facility] Influenza Virus Vaccine 2020-03-27 00:00:00 Completed [facility] Influenza Virus Vaccine 2020-03-27 00:00:00 Completed [facility] Influenza Virus Vaccine 2020-03-27 00:00:00 Completed [facility] Influenza Virus Vaccine 2020-03-27 00:00:00 Completed [facility] Influenza Virus Vaccine 2020-03-27 00:00:00 Completed [facility] Influenza Virus Vaccine 2020-03-27 00:00:00 Completed [facility] Influenza Virus Vaccine 2020-03-27 00:00:00 Completed [facility] Influenza Virus Vaccine 2020-03-27 00:00:00 Completed [facility] Influenza Virus Vaccine 2020-03-27 00:00:00 Completed [facility] Influenza Virus Vaccine 2020-03-27 00:00:00 Completed [facility] Influenza Virus Vaccine 2020-03-27 00:00:00 Completed [facility] Influenza Virus Vaccine 2020-03-27 00:00:00 Completed [facility] Influenza Virus Vaccine 2020-03-27 00:00:00 Completed [facility] Influenza Virus Vaccine 2020-03-27 00:00:00 Completed [facility] Influenza Virus Vaccine 2020-03-27 00:00:00 Completed [facility] Influenza Virus Vaccine 2020-03-27 00:00:00 Completed [facility] Influenza Virus Vaccine 2020-03-27 00:00:00 Completed [facility] Influenza Virus Vaccine 2020-03-27 00:00:00 Completed [facility] Influenza Virus Vaccine 2020-03-27 00:00:00 Completed [facility] Influenza Virus Vaccine 2020-03-27 00:00:00 Completed [facility] Influenza Virus Vaccine 2020-03-27 00:00:00 Completed [facility] Influenza Virus Vaccine 2020-03-27 00:00:00 Completed [facility] Influenza Virus Vaccine 2020-03-27 00:00:00 Completed [facility] Influenza Virus Vaccine 2020-03-27 00:00:00 Completed [facility] Influenza Virus Vaccine 2020-03-27 00:00:00 Completed [facility] Influenza Virus Vaccine 2020-03-27 00:00:00 Completed [facility] Influenza Virus Vaccine 2020-03-27 00:00:00 Completed [facility] Influenza Virus Vaccine 2020-03-27 00:00:00 Completed [facility] Influenza Virus Vaccine 2020-03-27 00:00:00 Completed [facility] Influenza Virus Vaccine 2020-03-27 00:00:00 Completed [facility] Influenza Virus Vaccine 2020-03-27 00:00:00 Completed [facility] Influenza Virus Vaccine 2020-03-27 00:00:00 Completed [facility] Influenza Virus Vaccine 2020-03-27 00:00:00 Completed [facility] Influenza Virus Vaccine 2020-03-27 00:00:00 Completed [facility] Influenza Virus Vaccine 2020-03-27 00:00:00 Completed [facility] Influenza Virus Vaccine 2020-03-27 00:00:00 Completed [facility] Influenza Virus Vaccine 2020-03-27 00:00:00 Completed [facility] Influenza Virus Vaccine 2020-03-27 00:00:00 Completed [facility] Influenza Virus Vaccine 2020-03-27 00:00:00 Completed [facility] Influenza Virus Vaccine 2020-03-27 00:00:00 Completed [facility] Influenza Virus Vaccine 2020-03-27 00:00:00 Completed [facility] Influenza Virus Vaccine 2020-03-27 00:00:00 Completed [facility] Influenza Virus Vaccine 2020-03-27 00:00:00 Completed [facility] Influenza Virus Vaccine 2020-03-27 00:00:00 Completed [facility] Influenza Virus Vaccine 2020-03-27 00:00:00 Completed [facility] Influenza Virus Vaccine 2020-03-27 00:00:00 Completed [facility] Influenza Virus Vaccine 2020-03-27 00:00:00 Completed [facility] Influenza Virus Vaccine 2020-03-27 00:00:00 Completed [facility] Influenza Virus Vaccine 2020-03-27 00:00:00 Completed [facility] Influenza Virus Vaccine 2020-03-27 00:00:00 Completed [facility] Influenza Virus Vaccine 2020-03-27 00:00:00 Completed [facility] Influenza Virus Vaccine 2020-03-27 00:00:00 Completed [facility] Influenza Virus Vaccine 2020-03-27 00:00:00 Completed [facility] Influenza Virus Vaccine 2020-03-27 00:00:00 Completed [facility] Influenza Virus Vaccine 2020-03-27 00:00:00 Completed [facility] Influenza Virus Vaccine 2020-03-27 00:00:00 Completed [facility] Influenza Virus Vaccine 2020-03-27 00:00:00 Completed [facility] Influenza Virus Vaccine 2020-03-27 00:00:00 Completed [facility] Influenza Virus Vaccine 2020-03-27 00:00:00 Completed [facility] Influenza Virus Vaccine 2020-03-27 00:00:00 Completed [facility] Influenza Virus Vaccine 2020-03-27 00:00:00 Completed [facility] Influenza Virus Vaccine 2020-03-27 00:00:00 Completed [facility] Influenza Virus Vaccine 2020-03-27 00:00:00 Completed [facility] Influenza Virus Vaccine 2020-03-27 00:00:00 Completed [facility] Influenza Virus Vaccine 2020-03-27 00:00:00 Completed [facility] Influenza Virus Vaccine 2020-03-27 00:00:00 Completed [facility] Influenza Virus Vaccine 2020-03-27 00:00:00 Completed [facility] Influenza Virus Vaccine 2020-03-27 00:00:00 Completed [facility] Influenza Virus Vaccine 2020-03-27 00:00:00 Completed [facility] Influenza Virus Vaccine 2020-03-27 00:00:00 Completed [facility] Influenza Virus Vaccine 2020-03-27 00:00:00 Completed [facility] Influenza Virus Vaccine 2020-03-27 00:00:00 Completed [facility] Influenza Virus Vaccine 2020-03-27 00:00:00 Completed [facility] Influenza Virus Vaccine 2020-03-27 00:00:00 Completed [facility] Influenza Virus Vaccine 2020-03-27 00:00:00 Completed [facility] Influenza Virus Vaccine 2020-03-27 00:00:00 Completed [facility] Influenza Virus Vaccine 2020-03-27 00:00:00 Completed [facility] Influenza Virus Vaccine 2020-03-27 00:00:00 Completed [facility] Influenza Virus Vaccine 2020-03-27 00:00:00 Completed [facility] Influenza Virus Vaccine 2020-03-27 00:00:00 Completed [facility] Influenza Virus Vaccine 2020-03-27 00:00:00 Completed [facility] Influenza Virus Vaccine 2020-03-27 00:00:00 Completed [facility] Influenza Virus Vaccine 2020-03-27 00:00:00 Completed [facility] Influenza Virus Vaccine 2020-03-27 00:00:00 Completed [facility] Influenza Virus Vaccine 2020-03-27 00:00:00 Completed [facility] Influenza Virus Vaccine 2020-03-27 00:00:00 Completed [facility] Influenza Virus Vaccine 2020-03-27 00:00:00 Completed [facility] Influenza Virus Vaccine 2020-03-27 00:00:00 Completed [facility] Influenza Virus Vaccine 2020-03-27 00:00:00 Completed [facility] Influenza Virus Vaccine 2020-03-27 00:00:00 Completed [facility] Influenza Virus Vaccine 2020-03-27 00:00:00 Completed [facility] Influenza Virus Vaccine 2020-03-27 00:00:00 Completed [facility] Influenza Virus Vaccine 2020-03-27 00:00:00 Completed [facility] Influenza Virus Vaccine 2020-03-27 00:00:00 Completed [facility] Influenza Virus Vaccine 2020-03-27 00:00:00 Completed [facility] Influenza Virus Vaccine 2020-03-27 00:00:00 Completed [facility] Influenza Virus Vaccine 2020-03-27 00:00:00 Completed [facility] Influenza Virus Vaccine 2020-03-27 00:00:00 Completed [facility] Influenza Virus Vaccine 2020-03-27 00:00:00 Completed [facility] Influenza Virus Vaccine 2020-03-27 00:00:00 Completed [facility] Influenza Virus Vaccine 2020-03-27 00:00:00 Completed [facility] Influenza Virus Vaccine 2020-03-27 00:00:00 Completed [facility] Influenza Virus Vaccine 2020-03-27 00:00:00 Completed [facility] Influenza Virus Vaccine 2020-03-27 00:00:00 Completed [facility] Influenza Virus Vaccine 2020-03-27 00:00:00 Completed [facility] Influenza Virus Vaccine 2020-03-27 00:00:00 Completed [facility] Influenza Virus Vaccine 2020-03-27 00:00:00 Completed [facility] Influenza Virus Vaccine 2020-03-27 00:00:00 Completed [facility] Influenza Virus Vaccine 2020-03-27 00:00:00 Completed [facility] Influenza Virus Vaccine 2020-03-27 00:00:00 Completed [facility] Influenza Virus Vaccine 2020-03-27 00:00:00 Completed [facility] Influenza Virus Vaccine 2020-03-27 00:00:00 Completed [facility] Influenza Virus Vaccine 2020-03-27 00:00:00 Completed [facility] Influenza Virus Vaccine 2020-03-27 00:00:00 Completed [facility] Influenza Virus Vaccine 2020-03-27 00:00:00 Completed [facility] Influenza Virus Vaccine 2020-03-27 00:00:00 Completed [facility] Influenza Virus Vaccine 2020-03-27 00:00:00 Completed [facility] Influenza Virus Vaccine 2020-03-27 00:00:00 Completed [facility] Influenza Virus Vaccine 2020-03-27 00:00:00 Completed [facility] Influenza Virus Vaccine 2020-03-27 00:00:00 Completed [facility] Influenza Virus Vaccine 2020-03-27 00:00:00 Completed [facility] Influenza Virus Vaccine 2020-03-27 00:00:00 Completed [facility] Influenza Virus Vaccine 2020-03-27 00:00:00 Completed [facility] Influenza Virus Vaccine 2020-03-27 00:00:00 Completed [facility] Influenza Virus Vaccine 2020-03-27 00:00:00 Completed [facility] Influenza Virus Vaccine 2020-03-27 00:00:00 Completed [facility] Influenza High Dose 2019-04-15 00:00:00 Completed [facility] Influenza Virus Vaccine 2019-04-15 00:00:00 Completed [facility] Influenza High Dose 2019-04-15 00:00:00 Completed [facility] Influenza Virus Vaccine 2019-04-15 00:00:00 Completed [facility] Influenza High Dose 2019-04-15 00:00:00 Completed [facility] Influenza Virus Vaccine 2019-04-15 00:00:00 Completed [facility] Influenza High Dose 2019-04-15 00:00:00 Completed [facility] Influenza Virus Vaccine 2019-04-15 00:00:00 Completed [facility] Influenza High Dose 2019-04-15 00:00:00 Completed [facility] Influenza Virus Vaccine 2019-04-15 00:00:00 Completed [facility] Influenza High Dose 2019-04-15 00:00:00 Completed [facility] Influenza Virus Vaccine 2019-04-15 00:00:00 Completed [facility] Influenza High Dose 2019-04-15 00:00:00 Completed [facility] Influenza Virus Vaccine 2019-04-15 00:00:00 Completed [facility] Influenza High Dose 2019-04-15 00:00:00 Completed [facility] Influenza Virus Vaccine 2019-04-15 00:00:00 Completed [facility] Influenza High Dose 2019-04-15 00:00:00 Completed [facility] Influenza Virus Vaccine 2019-04-15 00:00:00 Completed [facility] Influenza High Dose 2019-04-15 00:00:00 Completed [facility] Influenza Virus Vaccine 2019-04-15 00:00:00 Completed [facility] Influenza High Dose 2019-04-15 00:00:00 Completed [facility] Influenza Virus Vaccine 2019-04-15 00:00:00 Completed [facility] Influenza High Dose 2019-04-15 00:00:00 Completed [facility] Influenza Virus Vaccine 2019-04-15 00:00:00 Completed [facility] Influenza High Dose 2019-04-15 00:00:00 Completed [facility] Influenza Virus Vaccine 2019-04-15 00:00:00 Completed [facility] Influenza High Dose 2019-04-15 00:00:00 Completed [facility] Influenza Virus Vaccine 2019-04-15 00:00:00 Completed [facility] Influenza High Dose 2019-04-15 00:00:00 Completed [facility] Influenza Virus Vaccine 2019-04-15 00:00:00 Completed [facility] Influenza High Dose 2019-04-15 00:00:00 Completed [facility] Influenza Virus Vaccine 2019-04-15 00:00:00 Completed [facility] Influenza High Dose 2019-04-15 00:00:00 Completed [facility] Influenza Virus Vaccine 2019-04-15 00:00:00 Completed [facility] Influenza High Dose 2019-04-15 00:00:00 Completed [facility] Influenza Virus Vaccine 2019-04-15 00:00:00 Completed [facility] Influenza High Dose 2019-04-15 00:00:00 Completed [facility] Influenza Virus Vaccine 2019-04-15 00:00:00 Completed [facility] Influenza High Dose 2019-04-15 00:00:00 Completed [facility] Influenza Virus Vaccine 2019-04-15 00:00:00 Completed [facility] Influenza High Dose 2019-04-15 00:00:00 Completed [facility] Influenza Virus Vaccine 2019-04-15 00:00:00 Completed [facility] Influenza High Dose 2019-04-15 00:00:00 Completed [facility] Influenza Virus Vaccine 2019-04-15 00:00:00 Completed [facility] Influenza High Dose 2019-04-15 00:00:00 Completed [facility] Influenza Virus Vaccine 2019-04-15 00:00:00 Completed [facility] Influenza High Dose 2019-04-15 00:00:00 Completed [facility] Influenza Virus Vaccine 2019-04-15 00:00:00 Completed [facility] Influenza High Dose 2019-04-15 00:00:00 Completed [facility] Influenza Virus Vaccine 2019-04-15 00:00:00 Completed [facility] Influenza High Dose 2019-04-15 00:00:00 Completed [facility] Influenza Virus Vaccine 2019-04-15 00:00:00 Completed [facility] Influenza High Dose 2019-04-15 00:00:00 Completed [facility] Influenza Virus Vaccine 2019-04-15 00:00:00 Completed [facility] Influenza High Dose 2019-04-15 00:00:00 Completed [facility] Influenza Virus Vaccine 2019-04-15 00:00:00 Completed [facility] Influenza High Dose 2019-04-15 00:00:00 Completed [facility] Influenza Virus Vaccine 2019-04-15 00:00:00 Completed [facility] Influenza High Dose 2019-04-15 00:00:00 Completed [facility] Influenza Virus Vaccine 2019-04-15 00:00:00 Completed [facility] Influenza High Dose 2019-04-15 00:00:00 Completed [facility] Influenza Virus Vaccine 2019-04-15 00:00:00 Completed [facility] Influenza High Dose 2019-04-15 00:00:00 Completed [facility] Influenza Virus Vaccine 2019-04-15 00:00:00 Completed [facility] Influenza High Dose 2019-04-15 00:00:00 Completed [facility] Influenza Virus Vaccine 2019-04-15 00:00:00 Completed [facility] Influenza High Dose 2019-04-15 00:00:00 Completed [facility] Influenza Virus Vaccine 2019-04-15 00:00:00 Completed [facility] Influenza High Dose 2019-04-15 00:00:00 Completed [facility] Influenza Virus Vaccine 2019-04-15 00:00:00 Completed [facility] Influenza High Dose 2019-04-15 00:00:00 Completed [facility] Influenza Virus Vaccine 2019-04-15 00:00:00 Completed [facility] Influenza High Dose 2019-04-15 00:00:00 Completed [facility] Influenza Virus Vaccine 2019-04-15 00:00:00 Completed [facility] Influenza High Dose 2019-04-15 00:00:00 Completed [facility] Influenza Virus Vaccine 2019-04-15 00:00:00 Completed [facility] Influenza High Dose 2019-04-15 00:00:00 Completed [facility] Influenza Virus Vaccine 2019-04-15 00:00:00 Completed [facility] Influenza High Dose 2019-04-15 00:00:00 Completed [facility] Influenza Virus Vaccine 2019-04-15 00:00:00 Completed [facility] Influenza High Dose 2019-04-15 00:00:00 Completed [facility] Influenza Virus Vaccine 2019-04-15 00:00:00 Completed [facility] Influenza High Dose 2019-04-15 00:00:00 Completed [facility] Influenza Virus Vaccine 2019-04-15 00:00:00 Completed [facility] Influenza High Dose 2019-04-15 00:00:00 Completed [facility] Influenza Virus Vaccine 2019-04-15 00:00:00 Completed [facility] Influenza High Dose 2019-04-15 00:00:00 Completed [facility] Influenza Virus Vaccine 2019-04-15 00:00:00 Completed [facility] Influenza High Dose 2019-04-15 00:00:00 Completed [facility] Influenza Virus Vaccine 2019-04-15 00:00:00 Completed [facility] Influenza High Dose 2019-04-15 00:00:00 Completed [facility] Influenza Virus Vaccine 2019-04-15 00:00:00 Completed [facility] Influenza High Dose 2019-04-15 00:00:00 Completed [facility] Influenza Virus Vaccine 2019-04-15 00:00:00 Completed [facility] Influenza High Dose 2019-04-15 00:00:00 Completed [facility] Influenza Virus Vaccine 2019-04-15 00:00:00 Completed [facility] Influenza High Dose 2019-04-15 00:00:00 Completed [facility] Influenza Virus Vaccine 2019-04-15 00:00:00 Completed [facility] Influenza High Dose 2019-04-15 00:00:00 Completed [facility] Influenza Virus Vaccine 2019-04-15 00:00:00 Completed [facility] Influenza High Dose 2019-04-15 00:00:00 Completed [facility] Influenza Virus Vaccine 2019-04-15 00:00:00 Completed [facility] Influenza High Dose 2019-04-15 00:00:00 Completed [facility] Influenza Virus Vaccine 2019-04-15 00:00:00 Completed [facility] Influenza High Dose 2019-04-15 00:00:00 Completed [facility] Influenza Virus Vaccine 2019-04-15 00:00:00 Completed [facility] Influenza High Dose 2019-04-15 00:00:00 Completed [facility] Influenza Virus Vaccine 2019-04-15 00:00:00 Completed [facility] Influenza High Dose 2019-04-15 00:00:00 Completed [facility] Influenza Virus Vaccine 2019-04-15 00:00:00 Completed [facility] Influenza High Dose 2019-04-15 00:00:00 Completed [facility] Influenza Virus Vaccine 2019-04-15 00:00:00 Completed [facility] Influenza High Dose 2019-04-15 00:00:00 Completed [facility] Influenza Virus Vaccine 2019-04-15 00:00:00 Completed [facility] Influenza High Dose 2019-04-15 00:00:00 Completed [facility] Influenza Virus Vaccine 2019-04-15 00:00:00 Completed [facility] Influenza High Dose 2019-04-15 00:00:00 Completed [facility] Influenza Virus Vaccine 2019-04-15 00:00:00 Completed [facility] Influenza High Dose 2019-04-15 00:00:00 Completed [facility] Influenza Virus Vaccine 2019-04-15 00:00:00 Completed [facility] Influenza High Dose 2019-04-15 00:00:00 Completed [facility] Influenza Virus Vaccine 2019-04-15 00:00:00 Completed [facility] Influenza High Dose 2019-04-15 00:00:00 Completed [facility] Influenza Virus Vaccine 2019-04-15 00:00:00 Completed [facility] Influenza High Dose 2019-04-15 00:00:00 Completed [facility] Influenza Virus Vaccine 2019-04-15 00:00:00 Completed [facility] Influenza High Dose 2019-04-15 00:00:00 Completed [facility] Influenza Virus Vaccine 2019-04-15 00:00:00 Completed [facility] Influenza High Dose 2019-04-15 00:00:00 Completed [facility] Influenza Virus Vaccine 2019-04-15 00:00:00 Completed [facility] Influenza High Dose 2019-04-15 00:00:00 Completed [facility] Influenza Virus Vaccine 2019-04-15 00:00:00 Completed [facility] Influenza High Dose 2019-04-15 00:00:00 Completed [facility] Influenza Virus Vaccine 2019-04-15 00:00:00 Completed [facility] Influenza High Dose 2019-04-15 00:00:00 Completed [facility] Influenza Virus Vaccine 2019-04-15 00:00:00 Completed [facility] Influenza High Dose 2019-04-15 00:00:00 Completed [facility] Influenza Virus Vaccine 2019-04-15 00:00:00 Completed [facility] Influenza High Dose 2019-04-15 00:00:00 Completed [facility] Influenza Virus Vaccine 2019-04-15 00:00:00 Completed [facility] Influenza High Dose 2019-04-15 00:00:00 Completed [facility] Influenza Virus Vaccine 2019-04-15 00:00:00 Completed [facility] Influenza High Dose 2019-04-15 00:00:00 Completed [facility] Influenza Virus Vaccine 2019-04-15 00:00:00 Completed [facility] Influenza High Dose 2019-04-15 00:00:00 Completed [facility] Influenza Virus Vaccine 2019-04-15 00:00:00 Completed [facility] Influenza High Dose 2019-04-15 00:00:00 Completed [facility] Influenza Virus Vaccine 2019-04-15 00:00:00 Completed [facility] Influenza High Dose 2019-04-15 00:00:00 Completed [facility] Influenza Virus Vaccine 2019-04-15 00:00:00 Completed [facility] Influenza High Dose 2019-04-15 00:00:00 Completed [facility] Influenza Virus Vaccine 2019-04-15 00:00:00 Completed [facility] Influenza High Dose 2019-04-15 00:00:00 Completed [facility] Influenza Virus Vaccine 2019-04-15 00:00:00 Completed [facility] Influenza High Dose 2019-04-15 00:00:00 Completed [facility] Influenza Virus Vaccine 2019-04-15 00:00:00 Completed [facility] Influenza High Dose 2019-04-15 00:00:00 Completed [facility] Influenza Virus Vaccine 2019-04-15 00:00:00 Completed [facility] Influenza High Dose 2019-04-15 00:00:00 Completed [facility] Influenza Virus Vaccine 2019-04-15 00:00:00 Completed [facility] Influenza High Dose 2019-04-15 00:00:00 Completed [facility] Influenza Virus Vaccine 2019-04-15 00:00:00 Completed [facility] Influenza High Dose 2019-04-15 00:00:00 Completed [facility] Influenza Virus Vaccine 2019-04-15 00:00:00 Completed [facility] Influenza High Dose 2019-04-15 00:00:00 Completed [facility] Influenza Virus Vaccine 2019-04-15 00:00:00 Completed [facility] Influenza High Dose 2019-04-15 00:00:00 Completed [facility] Influenza Virus Vaccine 2019-04-15 00:00:00 Completed [facility] Influenza High Dose 2019-04-15 00:00:00 Completed [facility] Influenza Virus Vaccine 2019-04-15 00:00:00 Completed [facility] Influenza High Dose 2019-04-15 00:00:00 Completed [facility] Influenza Virus Vaccine 2019-04-15 00:00:00 Completed [facility] Influenza High Dose 2019-04-15 00:00:00 Completed [facility] Influenza Virus Vaccine 2019-04-15 00:00:00 Completed [facility] Influenza High Dose 2019-04-15 00:00:00 Completed [facility] Influenza Virus Vaccine 2019-04-15 00:00:00 Completed [facility] Influenza High Dose 2019-04-15 00:00:00 Completed [facility] Influenza Virus Vaccine 2019-04-15 00:00:00 Completed [facility] Influenza High Dose 2019-04-15 00:00:00 Completed [facility] Influenza Virus Vaccine 2019-04-15 00:00:00 Completed [facility] Influenza High Dose 2019-04-15 00:00:00 Completed [facility] Influenza Virus Vaccine 2019-04-15 00:00:00 Completed [facility] Influenza High Dose 2019-04-15 00:00:00 Completed [facility] Influenza Virus Vaccine 2019-04-15 00:00:00 Completed [facility] Influenza High Dose 2019-04-15 00:00:00 Completed [facility] Influenza Virus Vaccine 2019-04-15 00:00:00 Completed [facility] Influenza High Dose 2019-04-15 00:00:00 Completed [facility] Influenza Virus Vaccine 2019-04-15 00:00:00 Completed [facility] Influenza High Dose 2019-04-15 00:00:00 Completed [facility] Influenza Virus Vaccine 2019-04-15 00:00:00 Completed [facility] Influenza High Dose 2019-04-15 00:00:00 Completed [facility] Influenza Virus Vaccine 2019-04-15 00:00:00 Completed [facility] Influenza High Dose 2019-04-15 00:00:00 Completed [facility] Influenza Virus Vaccine 2019-04-15 00:00:00 Completed [facility] Influenza High Dose 2019-04-15 00:00:00 Completed [facility] Influenza Virus Vaccine 2019-04-15 00:00:00 Completed [facility] Influenza High Dose 2019-04-15 00:00:00 Completed [facility] Influenza Virus Vaccine 2019-04-15 00:00:00 Completed [facility] Influenza High Dose 2019-04-15 00:00:00 Completed [facility] Influenza Virus Vaccine 2019-04-15 00:00:00 Completed [facility] Influenza High Dose 2019-04-15 00:00:00 Completed [facility] Influenza Virus Vaccine 2019-04-15 00:00:00 Completed [facility] Influenza High Dose 2019-04-15 00:00:00 Completed [facility] Influenza Virus Vaccine 2019-04-15 00:00:00 Completed [facility] Influenza High Dose 2019-04-15 00:00:00 Completed [facility] Influenza Virus Vaccine 2019-04-15 00:00:00 Completed [facility] Influenza High Dose 2019-04-15 00:00:00 Completed [facility] Influenza Virus Vaccine 2019-04-15 00:00:00 Completed [facility] Influenza High Dose 2019-04-15 00:00:00 Completed [facility] Influenza Virus Vaccine 2019-04-15 00:00:00 Completed [facility] Influenza High Dose 2019-04-15 00:00:00 Completed [facility] Influenza Virus Vaccine 2019-04-15 00:00:00 Completed [facility] Influenza High Dose 2019-04-15 00:00:00 Completed [facility] Influenza Virus Vaccine 2019-04-15 00:00:00 Completed [facility] Influenza High Dose 2019-04-15 00:00:00 Completed [facility] Influenza Virus Vaccine 2019-04-15 00:00:00 Completed [facility] Influenza High Dose 2019-04-15 00:00:00 Completed [facility] Influenza Virus Vaccine 2019-04-15 00:00:00 Completed [facility] Influenza High Dose 2019-04-15 00:00:00 Completed [facility] Influenza Virus Vaccine 2019-04-15 00:00:00 Completed [facility] Influenza High Dose 2019-04-15 00:00:00 Completed [facility] Influenza Virus Vaccine 2019-04-15 00:00:00 Completed [facility] Influenza High Dose 2019-04-15 00:00:00 Completed [facility] Influenza Virus Vaccine 2019-04-15 00:00:00 Completed [facility] Influenza High Dose 2019-04-15 00:00:00 Completed [facility] Influenza Virus Vaccine 2019-04-15 00:00:00 Completed [facility] Influenza High Dose 2019-04-15 00:00:00 Completed [facility] Influenza Virus Vaccine 2019-04-15 00:00:00 Completed [facility] Influenza High Dose 2019-04-15 00:00:00 Completed [facility] Influenza Virus Vaccine 2019-04-15 00:00:00 Completed [facility] Influenza High Dose 2019-04-15 00:00:00 Completed [facility] Influenza Virus Vaccine 2019-04-15 00:00:00 Completed [facility] Influenza High Dose 2019-04-15 00:00:00 Completed [facility] Influenza Virus Vaccine 2019-04-15 00:00:00 Completed [facility] Influenza High Dose 2019-04-15 00:00:00 Completed [facility] Influenza Virus Vaccine 2019-04-15 00:00:00 Completed [facility] Influenza High Dose 2019-04-15 00:00:00 Completed [facility] Influenza Virus Vaccine 2019-04-15 00:00:00 Completed [facility] Influenza High Dose 2019-04-15 00:00:00 Completed [facility] Influenza Virus Vaccine 2019-04-15 00:00:00 Completed [facility] Influenza High Dose 2019-04-15 00:00:00 Completed [facility] Influenza Virus Vaccine 2019-04-15 00:00:00 Completed [facility] Influenza High Dose 2019-04-15 00:00:00 Completed [facility] Influenza Virus Vaccine 2019-04-15 00:00:00 Completed [facility] Influenza High Dose 2019-04-15 00:00:00 Completed [facility] Influenza Virus Vaccine 2019-04-15 00:00:00 Completed [facility] Influenza High Dose 2019-04-15 00:00:00 Completed [facility] Influenza Virus Vaccine 2019-04-15 00:00:00 Completed [facility] Influenza High Dose 2019-04-15 00:00:00 Completed [facility] Influenza Virus Vaccine 2019-04-15 00:00:00 Completed [facility] Influenza High Dose 2019-04-15 00:00:00 Completed [facility] Influenza Virus Vaccine 2019-04-15 00:00:00 Completed [facility] Influenza, High-Dose, Trivalent, PF (FLUZONE) 2019-04-15 00:00:00 Completed [facility] Influenza Virus Vaccine 2019-04-15 00:00:00 Completed Influenza, High-Dose, Trivalent, PF (FLUZONE) 2019-04-15 00:00:00 Completed [facility] Influenza Virus Vaccine 2019-04-15 00:00:00 Completed Influenza, High-Dose, Trivalent, PF (FLUZONE) 2019-04-15 00:00:00 Completed [facility] Influenza Virus Vaccine 2019-04-15 00:00:00 Completed Influenza Virus Vaccine 2019-04-14 00:00:00 Completed [facility] Influenza Virus Vaccine 2019-04-14 00:00:00 Completed [facility] Influenza Virus Vaccine 2019-04-14 00:00:00 Completed [facility] Influenza Virus Vaccine 2019-04-14 00:00:00 Completed [facility] Influenza Virus Vaccine 2019-04-14 00:00:00 Completed [facility] Influenza Virus Vaccine 2019-04-14 00:00:00 Completed [facility] Influenza Virus Vaccine 2019-04-14 00:00:00 Completed [facility] Influenza Virus Vaccine 2019-04-14 00:00:00 Completed [facility] Influenza Virus Vaccine 2019-04-14 00:00:00 Completed [facility] Influenza Virus Vaccine 2019-04-14 00:00:00 Completed [facility] Influenza Virus Vaccine 2019-04-14 00:00:00 Completed [facility] Influenza Virus Vaccine 2019-04-14 00:00:00 Completed [facility] Influenza Virus Vaccine 2019-04-14 00:00:00 Completed [facility] Influenza Virus Vaccine 2019-04-14 00:00:00 Completed [facility] Influenza Virus Vaccine 2019-04-14 00:00:00 Completed [facility] Influenza Virus Vaccine 2019-04-14 00:00:00 Completed [facility] Influenza Virus Vaccine 2019-04-14 00:00:00 Completed [facility] Influenza Virus Vaccine 2019-04-14 00:00:00 Completed [facility] Influenza Virus Vaccine 2019-04-14 00:00:00 Completed [facility] Influenza Virus Vaccine 2019-04-14 00:00:00 Completed [facility] Influenza Virus Vaccine 2019-04-14 00:00:00 Completed [facility] Influenza Virus Vaccine 2019-04-14 00:00:00 Completed [facility] Influenza Virus Vaccine 2019-04-14 00:00:00 Completed [facility] Influenza Virus Vaccine 2019-04-14 00:00:00 Completed [facility] Influenza Virus Vaccine 2019-04-14 00:00:00 Completed [facility] Influenza Virus Vaccine 2019-04-14 00:00:00 Completed [facility] Influenza Virus Vaccine 2019-04-14 00:00:00 Completed [facility] Influenza Virus Vaccine 2019-04-14 00:00:00 Completed [facility] Influenza Virus Vaccine 2019-04-14 00:00:00 Completed [facility] Influenza Virus Vaccine 2019-04-14 00:00:00 Completed [facility] Influenza Virus Vaccine 2019-04-14 00:00:00 Completed [facility] Influenza Virus Vaccine 2019-04-14 00:00:00 Completed [facility] Influenza Virus Vaccine 2019-04-14 00:00:00 Completed [facility] Influenza Virus Vaccine 2019-04-14 00:00:00 Completed [facility] Influenza Virus Vaccine 2019-04-14 00:00:00 Completed [facility] Influenza Virus Vaccine 2019-04-14 00:00:00 Completed [facility] Influenza Virus Vaccine 2019-04-14 00:00:00 Completed [facility] Influenza Virus Vaccine 2019-04-14 00:00:00 Completed [facility] Influenza Virus Vaccine 2019-04-14 00:00:00 Completed [facility] Influenza Virus Vaccine 2019-04-14 00:00:00 Completed [facility] Influenza Virus Vaccine 2019-04-14 00:00:00 Completed [facility] Influenza Virus Vaccine 2019-04-14 00:00:00 Completed [facility] Influenza Virus Vaccine 2019-04-14 00:00:00 Completed [facility] Influenza Virus Vaccine 2019-04-14 00:00:00 Completed [facility] Influenza Virus Vaccine 2019-04-14 00:00:00 Completed [facility] Influenza Virus Vaccine 2019-04-14 00:00:00 Completed [facility] Influenza Virus Vaccine 2019-04-14 00:00:00 Completed [facility] Influenza Virus Vaccine 2019-04-14 00:00:00 Completed [facility] Influenza Virus Vaccine 2019-04-14 00:00:00 Completed [facility] Influenza Virus Vaccine 2019-04-14 00:00:00 Completed [facility] Influenza Virus Vaccine 2019-04-14 00:00:00 Completed [facility] Influenza Virus Vaccine 2019-04-14 00:00:00 Completed [facility] Influenza Virus Vaccine 2019-04-14 00:00:00 Completed [facility] Influenza Virus Vaccine 2019-04-14 00:00:00 Completed [facility] Influenza Virus Vaccine 2019-04-14 00:00:00 Completed [facility] Influenza Virus Vaccine 2019-04-14 00:00:00 Completed [facility] Influenza Virus Vaccine 2019-04-14 00:00:00 Completed [facility] Influenza Virus Vaccine 2019-04-14 00:00:00 Completed [facility] Influenza Virus Vaccine 2019-04-14 00:00:00 Completed [facility] Influenza Virus Vaccine 2019-04-14 00:00:00 Completed [facility] Influenza Virus Vaccine 2019-04-14 00:00:00 Completed [facility] Influenza Virus Vaccine 2019-04-14 00:00:00 Completed [facility] Influenza Virus Vaccine 2019-04-14 00:00:00 Completed [facility] Influenza Virus Vaccine 2019-04-14 00:00:00 Completed [facility] Influenza Virus Vaccine 2019-04-14 00:00:00 Completed [facility] Influenza Virus Vaccine 2019-04-14 00:00:00 Completed [facility] Influenza Virus Vaccine 2019-04-14 00:00:00 Completed [facility] Influenza Virus Vaccine 2019-04-14 00:00:00 Completed [facility] Influenza Virus Vaccine 2019-04-14 00:00:00 Completed [facility] Influenza Virus Vaccine 2019-04-14 00:00:00 Completed [facility] Influenza Virus Vaccine 2019-04-14 00:00:00 Completed [facility] Influenza Virus Vaccine 2019-04-14 00:00:00 Completed [facility] Influenza Virus Vaccine 2019-04-14 00:00:00 Completed [facility] Influenza Virus Vaccine 2019-04-14 00:00:00 Completed [facility] Influenza Virus Vaccine 2019-04-14 00:00:00 Completed [facility] Influenza Virus Vaccine 2019-04-14 00:00:00 Completed [facility] Influenza Virus Vaccine 2019-04-14 00:00:00 Completed [facility] Influenza Virus Vaccine 2019-04-14 00:00:00 Completed [facility] Influenza Virus Vaccine 2019-04-14 00:00:00 Completed [facility] Influenza Virus Vaccine 2019-04-14 00:00:00 Completed [facility] Influenza Virus Vaccine 2019-04-14 00:00:00 Completed [facility] Influenza Virus Vaccine 2019-04-14 00:00:00 Completed [facility] Influenza Virus Vaccine 2019-04-14 00:00:00 Completed [facility] Influenza Virus Vaccine 2019-04-14 00:00:00 Completed [facility] Influenza Virus Vaccine 2019-04-14 00:00:00 Completed [facility] Influenza Virus Vaccine 2019-04-14 00:00:00 Completed [facility] Influenza Virus Vaccine 2019-04-14 00:00:00 Completed [facility] Influenza Virus Vaccine 2019-04-14 00:00:00 Completed [facility] Influenza Virus Vaccine 2019-04-14 00:00:00 Completed [facility] Influenza Virus Vaccine 2019-04-14 00:00:00 Completed [facility] Influenza Virus Vaccine 2019-04-14 00:00:00 Completed [facility] Influenza Virus Vaccine 2019-04-14 00:00:00 Completed [facility] Influenza Virus Vaccine 2019-04-14 00:00:00 Completed [facility] Influenza Virus Vaccine 2019-04-14 00:00:00 Completed [facility] Influenza Virus Vaccine 2019-04-14 00:00:00 Completed [facility] Influenza Virus Vaccine 2019-04-14 00:00:00 Completed [facility] Influenza Virus Vaccine 2019-04-14 00:00:00 Completed [facility] Influenza Virus Vaccine 2019-04-14 00:00:00 Completed [facility] Influenza Virus Vaccine 2019-04-14 00:00:00 Completed [facility] Influenza Virus Vaccine 2019-04-14 00:00:00 Completed [facility] Influenza Virus Vaccine 2019-04-14 00:00:00 Completed [facility] Influenza Virus Vaccine 2019-04-14 00:00:00 Completed [facility] Influenza Virus Vaccine 2019-04-14 00:00:00 Completed [facility] Influenza Virus Vaccine 2019-04-14 00:00:00 Completed [facility] Influenza Virus Vaccine 2019-04-14 00:00:00 Completed [facility] Influenza Virus Vaccine 2019-04-14 00:00:00 Completed [facility] Influenza Virus Vaccine 2019-04-14 00:00:00 Completed [facility] Influenza Virus Vaccine 2019-04-14 00:00:00 Completed [facility] Influenza Virus Vaccine 2019-04-14 00:00:00 Completed [facility] Influenza Virus Vaccine 2019-04-14 00:00:00 Completed [facility] Influenza Virus Vaccine 2019-04-14 00:00:00 Completed [facility] Influenza Virus Vaccine 2019-04-14 00:00:00 Completed [facility] Influenza Virus Vaccine 2019-04-14 00:00:00 Completed [facility] Influenza Virus Vaccine 2019-04-14 00:00:00 Completed [facility] Influenza Virus Vaccine 2019-04-14 00:00:00 Completed [facility] Influenza Virus Vaccine 2019-04-14 00:00:00 Completed [facility] Influenza Virus Vaccine 2019-04-14 00:00:00 Completed [facility] Influenza Virus Vaccine 2019-04-14 00:00:00 Completed [facility] Influenza Virus Vaccine 2019-04-14 00:00:00 Completed [facility] Influenza Virus Vaccine 2019-04-14 00:00:00 Completed [facility] Influenza Virus Vaccine 2019-04-14 00:00:00 Completed [facility] Influenza Virus Vaccine 2019-04-14 00:00:00 Completed [facility] Influenza Virus Vaccine 2019-04-14 00:00:00 Completed [facility] Influenza Virus Vaccine 2019-04-14 00:00:00 Completed [facility] Influenza Virus Vaccine 2019-04-14 00:00:00 Completed [facility] Influenza Virus Vaccine 2019-04-14 00:00:00 Completed [facility] Influenza Virus Vaccine 2019-04-14 00:00:00 Completed Influenza Virus Vaccine 2019-04-14 00:00:00 Completed Influenza Virus Vaccine 2019-04-14 00:00:00 Completed Influenza Virus Vaccine Quad IM Multi-dose 6+ MO 2019-04-03 00:00:00 Completed [facility] Pneumococcal Polysaccharide, PPSV23 (PNEUMOVAX) 2019-04-03 00:00:00 Completed [facility] Influenza Virus Vaccine Quad IM Multi-dose 6+ MO 2019-04-03 00:00:00 Completed [facility] Pneumococcal Polysaccharide, PPSV23 (PNEUMOVAX) 2019-04-03 00:00:00 Completed [facility] Influenza Virus Vaccine Quad IM Multi-dose 6+ MO 2019-04-03 00:00:00 Completed [facility] Pneumococcal Polysaccharide, PPSV23 (PNEUMOVAX) 2019-04-03 00:00:00 Completed [facility] Influenza Virus Vaccine Quad IM Multi-dose 6+ MO 2019-04-03 00:00:00 Completed [facility] Pneumococcal Polysaccharide, PPSV23 (PNEUMOVAX) 2019-04-03 00:00:00 Completed [facility] Influenza Virus Vaccine Quad IM Multi-dose 6+ MO 2019-04-03 00:00:00 Completed [facility] Pneumococcal Polysaccharide, PPSV23 (PNEUMOVAX) 2019-04-03 00:00:00 Completed [facility] Influenza Virus Vaccine Quad IM Multi-dose 6+ MO 2019-04-03 00:00:00 Completed [facility] Pneumococcal Polysaccharide, PPSV23 (PNEUMOVAX) 2019-04-03 00:00:00 Completed [facility] Influenza Virus Vaccine Quad IM Multi-dose 6+ MO 2019-04-03 00:00:00 Completed [facility] Pneumococcal Polysaccharide, PPSV23 (PNEUMOVAX) 2019-04-03 00:00:00 Completed [facility] Influenza Virus Vaccine Quad IM Multi-dose 6+ MO 2019-04-03 00:00:00 Completed [facility] Pneumococcal Polysaccharide, PPSV23 (PNEUMOVAX) 2019-04-03 00:00:00 Completed [facility] Influenza Virus Vaccine Quad IM Multi-dose 6+ MO 2019-04-03 00:00:00 Completed [facility] Pneumococcal Polysaccharide, PPSV23 (PNEUMOVAX) 2019-04-03 00:00:00 Completed [facility] Influenza Virus Vaccine Quad IM Multi-dose 6+ MO 2019-04-03 00:00:00 Completed [facility] Pneumococcal Polysaccharide, PPSV23 (PNEUMOVAX) 2019-04-03 00:00:00 Completed [facility] Influenza Virus Vaccine Quad IM Multi-dose 6+ MO 2019-04-03 00:00:00 Completed [facility] Pneumococcal Polysaccharide, PPSV23 (PNEUMOVAX) 2019-04-03 00:00:00 Completed [facility] Influenza Virus Vaccine Quad IM Multi-dose 6+ MO 2019-04-03 00:00:00 Completed [facility] Pneumococcal Polysaccharide, PPSV23 (PNEUMOVAX) 2019-04-03 00:00:00 Completed [facility] Influenza Virus Vaccine Quad IM Multi-dose 6+ MO 2019-04-03 00:00:00 Completed [facility] Pneumococcal Polysaccharide, PPSV23 (PNEUMOVAX) 2019-04-03 00:00:00 Completed [facility] Influenza Virus Vaccine Quad IM Multi-dose 6+ MO 2019-04-03 00:00:00 Completed [facility] Pneumococcal Polysaccharide, PPSV23 (PNEUMOVAX) 2019-04-03 00:00:00 Completed [facility] Influenza Virus Vaccine Quad IM Multi-dose 6+ MO 2019-04-03 00:00:00 Completed [facility] Pneumococcal Polysaccharide, PPSV23 (PNEUMOVAX) 2019-04-03 00:00:00 Completed [facility] Influenza Virus Vaccine Quad IM Multi-dose 6+ MO 2019-04-03 00:00:00 Completed [facility] Pneumococcal Polysaccharide, PPSV23 (PNEUMOVAX) 2019-04-03 00:00:00 Completed [facility] Influenza Virus Vaccine Quad IM Multi-dose 6+ MO 2019-04-03 00:00:00 Completed [facility] Pneumococcal Polysaccharide, PPSV23 (PNEUMOVAX) 2019-04-03 00:00:00 Completed [facility] Influenza Virus Vaccine Quad IM Multi-dose 6+ MO 2019-04-03 00:00:00 Completed [facility] Pneumococcal Polysaccharide, PPSV23 (PNEUMOVAX) 2019-04-03 00:00:00 Completed [facility] Influenza Virus Vaccine Quad IM Multi-dose 6+ MO 2019-04-03 00:00:00 Completed [facility] Pneumococcal Polysaccharide, PPSV23 (PNEUMOVAX) 2019-04-03 00:00:00 Completed [facility] Influenza Virus Vaccine Quad IM Multi-dose 6+ MO 2019-04-03 00:00:00 Completed [facility] Pneumococcal Polysaccharide, PPSV23 (PNEUMOVAX) 2019-04-03 00:00:00 Completed [facility] Influenza Virus Vaccine Quad IM Multi-dose 6+ MO 2019-04-03 00:00:00 Completed [facility] Pneumococcal Polysaccharide, PPSV23 (PNEUMOVAX) 2019-04-03 00:00:00 Completed [facility] Influenza Virus Vaccine Quad IM Multi-dose 6+ MO 2019-04-03 00:00:00 Completed [facility] Pneumococcal Polysaccharide, PPSV23 (PNEUMOVAX) 2019-04-03 00:00:00 Completed [facility] Influenza Virus Vaccine Quad IM Multi-dose 6+ MO 2019-04-03 00:00:00 Completed [facility] Pneumococcal Polysaccharide, PPSV23 (PNEUMOVAX) 2019-04-03 00:00:00 Completed [facility] Influenza Virus Vaccine Quad IM Multi-dose 6+ MO 2019-04-03 00:00:00 Completed [facility] Pneumococcal Polysaccharide, PPSV23 (PNEUMOVAX) 2019-04-03 00:00:00 Completed [facility] Influenza Virus Vaccine Quad IM Multi-dose 6+ MO 2019-04-03 00:00:00 Completed [facility] Pneumococcal Polysaccharide, PPSV23 (PNEUMOVAX) 2019-04-03 00:00:00 Completed [facility] Influenza Virus Vaccine Quad IM Multi-dose 6+ MO 2019-04-03 00:00:00 Completed [facility] Pneumococcal Polysaccharide, PPSV23 (PNEUMOVAX) 2019-04-03 00:00:00 Completed [facility] Influenza Virus Vaccine Quad IM Multi-dose 6+ MO 2019-04-03 00:00:00 Completed [facility] Pneumococcal Polysaccharide, PPSV23 (PNEUMOVAX) 2019-04-03 00:00:00 Completed [facility] Influenza Virus Vaccine Quad IM Multi-dose 6+ MO 2019-04-03 00:00:00 Completed [facility] Pneumococcal Polysaccharide, PPSV23 (PNEUMOVAX) 2019-04-03 00:00:00 Completed [facility] Influenza Virus Vaccine Quad IM Multi-dose 6+ MO 2019-04-03 00:00:00 Completed [facility] Pneumococcal Polysaccharide, PPSV23 (PNEUMOVAX) 2019-04-03 00:00:00 Completed [facility] Influenza Virus Vaccine Quad IM Multi-dose 6+ MO 2019-04-03 00:00:00 Completed [facility] Pneumococcal Polysaccharide, PPSV23 (PNEUMOVAX) 2019-04-03 00:00:00 Completed [facility] Influenza Virus Vaccine Quad IM Multi-dose 6+ MO 2019-04-03 00:00:00 Completed [facility] Pneumococcal Polysaccharide, PPSV23 (PNEUMOVAX) 2019-04-03 00:00:00 Completed [facility] Influenza Virus Vaccine Quad IM Multi-dose 6+ MO 2019-04-03 00:00:00 Completed [facility] Pneumococcal Polysaccharide, PPSV23 (PNEUMOVAX) 2019-04-03 00:00:00 Completed [facility] Influenza Virus Vaccine Quad IM Multi-dose 6+ MO 2019-04-03 00:00:00 Completed [facility] Pneumococcal Polysaccharide, PPSV23 (PNEUMOVAX) 2019-04-03 00:00:00 Completed [facility] Influenza Virus Vaccine Quad IM Multi-dose 6+ MO 2019-04-03 00:00:00 Completed [facility] Pneumococcal Polysaccharide, PPSV23 (PNEUMOVAX) 2019-04-03 00:00:00 Completed [facility] Influenza Virus Vaccine Quad IM Multi-dose 6+ MO 2019-04-03 00:00:00 Completed [facility] Pneumococcal Polysaccharide, PPSV23 (PNEUMOVAX) 2019-04-03 00:00:00 Completed [facility] Influenza Virus Vaccine Quad IM Multi-dose 6+ MO 2019-04-03 00:00:00 Completed [facility] Pneumococcal Polysaccharide, PPSV23 (PNEUMOVAX) 2019-04-03 00:00:00 Completed [facility] Influenza Virus Vaccine Quad IM Multi-dose 6+ MO 2019-04-03 00:00:00 Completed [facility] Pneumococcal Polysaccharide, PPSV23 (PNEUMOVAX) 2019-04-03 00:00:00 Completed [facility] Influenza Virus Vaccine Quad IM Multi-dose 6+ MO 2019-04-03 00:00:00 Completed [facility] Pneumococcal Polysaccharide, PPSV23 (PNEUMOVAX) 2019-04-03 00:00:00 Completed [facility] Influenza Virus Vaccine Quad IM Multi-dose 6+ MO 2019-04-03 00:00:00 Completed [facility] Pneumococcal Polysaccharide, PPSV23 (PNEUMOVAX) 2019-04-03 00:00:00 Completed [facility] Influenza Virus Vaccine Quad IM Multi-dose 6+ MO 2019-04-03 00:00:00 Completed [facility] Pneumococcal Polysaccharide, PPSV23 (PNEUMOVAX) 2019-04-03 00:00:00 Completed [facility] Influenza Virus Vaccine Quad IM Multi-dose 6+ MO 2019-04-03 00:00:00 Completed [facility] Pneumococcal Polysaccharide, PPSV23 (PNEUMOVAX) 2019-04-03 00:00:00 Completed [facility] Influenza Virus Vaccine Quad IM Multi-dose 6+ MO 2019-04-03 00:00:00 Completed [facility] Pneumococcal Polysaccharide, PPSV23 (PNEUMOVAX) 2019-04-03 00:00:00 Completed [facility] Influenza Virus Vaccine Quad IM Multi-dose 6+ MO 2019-04-03 00:00:00 Completed [facility] Pneumococcal Polysaccharide, PPSV23 (PNEUMOVAX) 2019-04-03 00:00:00 Completed [facility] Influenza Virus Vaccine Quad IM Multi-dose 6+ MO 2019-04-03 00:00:00 Completed [facility] Pneumococcal Polysaccharide, PPSV23 (PNEUMOVAX) 2019-04-03 00:00:00 Completed [facility] Influenza Virus Vaccine Quad IM Multi-dose 6+ MO 2019-04-03 00:00:00 Completed [facility] Pneumococcal Polysaccharide, PPSV23 (PNEUMOVAX) 2019-04-03 00:00:00 Completed [facility] Influenza Virus Vaccine Quad IM Multi-dose 6+ MO 2019-04-03 00:00:00 Completed [facility] Pneumococcal Polysaccharide, PPSV23 (PNEUMOVAX) 2019-04-03 00:00:00 Completed [facility] Influenza Virus Vaccine Quad IM Multi-dose 6+ MO 2019-04-03 00:00:00 Completed [facility] Pneumococcal Polysaccharide, PPSV23 (PNEUMOVAX) 2019-04-03 00:00:00 Completed [facility] Influenza Virus Vaccine Quad IM Multi-dose 6+ MO 2019-04-03 00:00:00 Completed [facility] Pneumococcal Polysaccharide, PPSV23 (PNEUMOVAX) 2019-04-03 00:00:00 Completed [facility] Influenza Virus Vaccine Quad IM Multi-dose 6+ MO 2019-04-03 00:00:00 Completed [facility] Pneumococcal Polysaccharide, PPSV23 (PNEUMOVAX) 2019-04-03 00:00:00 Completed [facility] Influenza Virus Vaccine Quad IM Multi-dose 6+ MO 2019-04-03 00:00:00 Completed [facility] Pneumococcal Polysaccharide, PPSV23 (PNEUMOVAX) 2019-04-03 00:00:00 Completed [facility] Influenza Virus Vaccine Quad IM Multi-dose 6+ MO 2019-04-03 00:00:00 Completed [facility] Pneumococcal Polysaccharide, PPSV23 (PNEUMOVAX) 2019-04-03 00:00:00 Completed [facility] Influenza Virus Vaccine Quad IM Multi-dose 6+ MO 2019-04-03 00:00:00 Completed [facility] Pneumococcal Polysaccharide, PPSV23 (PNEUMOVAX) 2019-04-03 00:00:00 Completed [facility] Influenza Virus Vaccine Quad IM Multi-dose 6+ MO 2019-04-03 00:00:00 Completed [facility] Pneumococcal Polysaccharide, PPSV23 (PNEUMOVAX) 2019-04-03 00:00:00 Completed [facility] Influenza Virus Vaccine Quad IM Multi-dose 6+ MO 2019-04-03 00:00:00 Completed [facility] Pneumococcal Polysaccharide, PPSV23 (PNEUMOVAX) 2019-04-03 00:00:00 Completed [facility] Influenza Virus Vaccine Quad IM Multi-dose 6+ MO 2019-04-03 00:00:00 Completed [facility] Pneumococcal Polysaccharide, PPSV23 (PNEUMOVAX) 2019-04-03 00:00:00 Completed [facility] Influenza Virus Vaccine Quad IM Multi-dose 6+ MO 2019-04-03 00:00:00 Completed [facility] Pneumococcal Polysaccharide, PPSV23 (PNEUMOVAX) 2019-04-03 00:00:00 Completed [facility] Influenza Virus Vaccine Quad IM Multi-dose 6+ MO 2019-04-03 00:00:00 Completed [facility] Pneumococcal Polysaccharide, PPSV23 (PNEUMOVAX) 2019-04-03 00:00:00 Completed [facility] Influenza Virus Vaccine Quad IM Multi-dose 6+ MO 2019-04-03 00:00:00 Completed [facility] Pneumococcal Polysaccharide, PPSV23 (PNEUMOVAX) 2019-04-03 00:00:00 Completed [facility] Influenza Virus Vaccine Quad IM Multi-dose 6+ MO 2019-04-03 00:00:00 Completed [facility] Pneumococcal Polysaccharide, PPSV23 (PNEUMOVAX) 2019-04-03 00:00:00 Completed [facility] Influenza Virus Vaccine Quad IM Multi-dose 6+ MO 2019-04-03 00:00:00 Completed [facility] Pneumococcal Polysaccharide, PPSV23 (PNEUMOVAX) 2019-04-03 00:00:00 Completed [facility] Influenza Virus Vaccine Quad IM Multi-dose 6+ MO 2019-04-03 00:00:00 Completed [facility] Pneumococcal Polysaccharide, PPSV23 (PNEUMOVAX) 2019-04-03 00:00:00 Completed [facility] Influenza Virus Vaccine Quad IM Multi-dose 6+ MO 2019-04-03 00:00:00 Completed [facility] Pneumococcal Polysaccharide, PPSV23 (PNEUMOVAX) 2019-04-03 00:00:00 Completed [facility] Influenza Virus Vaccine Quad IM Multi-dose 6+ MO 2019-04-03 00:00:00 Completed [facility] Pneumococcal Polysaccharide, PPSV23 (PNEUMOVAX) 2019-04-03 00:00:00 Completed [facility] Influenza Virus Vaccine Quad IM Multi-dose 6+ MO 2019-04-03 00:00:00 Completed [facility] Pneumococcal Polysaccharide, PPSV23 (PNEUMOVAX) 2019-04-03 00:00:00 Completed [facility] Influenza Virus Vaccine Quad IM Multi-dose 6+ MO 2019-04-03 00:00:00 Completed [facility] Pneumococcal Polysaccharide, PPSV23 (PNEUMOVAX) 2019-04-03 00:00:00 Completed [facility] Influenza Virus Vaccine Quad IM Multi-dose 6+ MO 2019-04-03 00:00:00 Completed [facility] Pneumococcal Polysaccharide, PPSV23 (PNEUMOVAX) 2019-04-03 00:00:00 Completed [facility] Influenza Virus Vaccine Quad IM Multi-dose 6+ MO 2019-04-03 00:00:00 Completed [facility] Pneumococcal Polysaccharide, PPSV23 (PNEUMOVAX) 2019-04-03 00:00:00 Completed [facility] Influenza Virus Vaccine Quad IM Multi-dose 6+ MO 2019-04-03 00:00:00 Completed [facility] Pneumococcal Polysaccharide, PPSV23 (PNEUMOVAX) 2019-04-03 00:00:00 Completed [facility] Influenza Virus Vaccine Quad IM Multi-dose 6+ MO 2019-04-03 00:00:00 Completed [facility] Pneumococcal Polysaccharide, PPSV23 (PNEUMOVAX) 2019-04-03 00:00:00 Completed [facility] Influenza Virus Vaccine Quad IM Multi-dose 6+ MO 2019-04-03 00:00:00 Completed [facility] Pneumococcal Polysaccharide, PPSV23 (PNEUMOVAX) 2019-04-03 00:00:00 Completed [facility] Influenza Virus Vaccine Quad IM Multi-dose 6+ MO 2019-04-03 00:00:00 Completed [facility] Pneumococcal Polysaccharide, PPSV23 (PNEUMOVAX) 2019-04-03 00:00:00 Completed [facility] Influenza Virus Vaccine Quad IM Multi-dose 6+ MO 2019-04-03 00:00:00 Completed [facility] Pneumococcal Polysaccharide, PPSV23 (PNEUMOVAX) 2019-04-03 00:00:00 Completed [facility] Influenza Virus Vaccine Quad IM Multi-dose 6+ MO 2019-04-03 00:00:00 Completed [facility] Pneumococcal Polysaccharide, PPSV23 (PNEUMOVAX) 2019-04-03 00:00:00 Completed [facility] Influenza Virus Vaccine Quad IM Multi-dose 6+ MO 2019-04-03 00:00:00 Completed [facility] Pneumococcal Polysaccharide, PPSV23 (PNEUMOVAX) 2019-04-03 00:00:00 Completed [facility] Influenza Virus Vaccine Quad IM Multi-dose 6+ MO 2019-04-03 00:00:00 Completed [facility] Pneumococcal Polysaccharide, PPSV23 (PNEUMOVAX) 2019-04-03 00:00:00 Completed [facility] Influenza Virus Vaccine Quad IM Multi-dose 6+ MO 2019-04-03 00:00:00 Completed [facility] Pneumococcal Polysaccharide, PPSV23 (PNEUMOVAX) 2019-04-03 00:00:00 Completed [facility] Influenza Virus Vaccine Quad IM Multi-dose 6+ MO 2019-04-03 00:00:00 Completed [facility] Pneumococcal Polysaccharide, PPSV23 (PNEUMOVAX) 2019-04-03 00:00:00 Completed [facility] Influenza Virus Vaccine Quad IM Multi-dose 6+ MO 2019-04-03 00:00:00 Completed [facility] Pneumococcal Polysaccharide, PPSV23 (PNEUMOVAX) 2019-04-03 00:00:00 Completed [facility] Influenza Virus Vaccine Quad IM Multi-dose 6+ MO 2019-04-03 00:00:00 Completed [facility] Pneumococcal Polysaccharide, PPSV23 (PNEUMOVAX) 2019-04-03 00:00:00 Completed [facility] Influenza Virus Vaccine Quad IM Multi-dose 6+ MO 2019-04-03 00:00:00 Completed [facility] Pneumococcal Polysaccharide, PPSV23 (PNEUMOVAX) 2019-04-03 00:00:00 Completed [facility] Influenza Virus Vaccine Quad IM Multi-dose 6+ MO 2019-04-03 00:00:00 Completed [facility] Pneumococcal Polysaccharide, PPSV23 (PNEUMOVAX) 2019-04-03 00:00:00 Completed [facility] Influenza Virus Vaccine Quad IM Multi-dose 6+ MO 2019-04-03 00:00:00 Completed [facility] Pneumococcal Polysaccharide, PPSV23 (PNEUMOVAX) 2019-04-03 00:00:00 Completed [facility] Influenza Virus Vaccine Quad IM Multi-dose 6+ MO 2019-04-03 00:00:00 Completed [facility] Pneumococcal Polysaccharide, PPSV23 (PNEUMOVAX) 2019-04-03 00:00:00 Completed [facility] Influenza Virus Vaccine Quad IM Multi-dose 6+ MO 2019-04-03 00:00:00 Completed [facility] Pneumococcal Polysaccharide, PPSV23 (PNEUMOVAX) 2019-04-03 00:00:00 Completed [facility] Influenza Virus Vaccine Quad IM Multi-dose 6+ MO 2019-04-03 00:00:00 Completed [facility] Pneumococcal Polysaccharide, PPSV23 (PNEUMOVAX) 2019-04-03 00:00:00 Completed [facility] Influenza Virus Vaccine Quad IM Multi-dose 6+ MO 2019-04-03 00:00:00 Completed [facility] Pneumococcal Polysaccharide, PPSV23 (PNEUMOVAX) 2019-04-03 00:00:00 Completed [facility] Influenza Virus Vaccine Quad IM Multi-dose 6+ MO 2019-04-03 00:00:00 Completed [facility] Pneumococcal Polysaccharide, PPSV23 (PNEUMOVAX) 2019-04-03 00:00:00 Completed [facility] Influenza Virus Vaccine Quad IM Multi-dose 6+ MO 2019-04-03 00:00:00 Completed [facility] Pneumococcal Polysaccharide, PPSV23 (PNEUMOVAX) 2019-04-03 00:00:00 Completed [facility] Influenza Virus Vaccine Quad IM Multi-dose 6+ MO 2019-04-03 00:00:00 Completed [facility] Pneumococcal Polysaccharide, PPSV23 (PNEUMOVAX) 2019-04-03 00:00:00 Completed [facility] Influenza Virus Vaccine Quad IM Multi-dose 6+ MO 2019-04-03 00:00:00 Completed [facility] Pneumococcal Polysaccharide, PPSV23 (PNEUMOVAX) 2019-04-03 00:00:00 Completed [facility] Influenza Virus Vaccine Quad IM Multi-dose 6+ MO 2019-04-03 00:00:00 Completed [facility] Pneumococcal Polysaccharide, PPSV23 (PNEUMOVAX) 2019-04-03 00:00:00 Completed [facility] Influenza Virus Vaccine Quad IM Multi-dose 6+ MO 2019-04-03 00:00:00 Completed [facility] Pneumococcal Polysaccharide, PPSV23 (PNEUMOVAX) 2019-04-03 00:00:00 Completed [facility] Influenza Virus Vaccine Quad IM Multi-dose 6+ MO 2019-04-03 00:00:00 Completed [facility] Pneumococcal Polysaccharide, PPSV23 (PNEUMOVAX) 2019-04-03 00:00:00 Completed [facility] Influenza Virus Vaccine Quad IM Multi-dose 6+ MO 2019-04-03 00:00:00 Completed [facility] Pneumococcal Polysaccharide, PPSV23 (PNEUMOVAX) 2019-04-03 00:00:00 Completed [facility] Influenza Virus Vaccine Quad IM Multi-dose 6+ MO 2019-04-03 00:00:00 Completed [facility] Pneumococcal Polysaccharide, PPSV23 (PNEUMOVAX) 2019-04-03 00:00:00 Completed [facility] Influenza Virus Vaccine Quad IM Multi-dose 6+ MO 2019-04-03 00:00:00 Completed [facility] Pneumococcal Polysaccharide, PPSV23 (PNEUMOVAX) 2019-04-03 00:00:00 Completed [facility] Influenza Virus Vaccine Quad IM Multi-dose 6+ MO 2019-04-03 00:00:00 Completed [facility] Pneumococcal Polysaccharide, PPSV23 (PNEUMOVAX) 2019-04-03 00:00:00 Completed [facility] Influenza Virus Vaccine Quad IM Multi-dose 6+ MO 2019-04-03 00:00:00 Completed [facility] Pneumococcal Polysaccharide, PPSV23 (PNEUMOVAX) 2019-04-03 00:00:00 Completed [facility] Influenza Virus Vaccine Quad IM Multi-dose 6+ MO 2019-04-03 00:00:00 Completed [facility] Pneumococcal Polysaccharide, PPSV23 (PNEUMOVAX) 2019-04-03 00:00:00 Completed [facility] Influenza Virus Vaccine Quad IM Multi-dose 6+ MO 2019-04-03 00:00:00 Completed [facility] Pneumococcal Polysaccharide, PPSV23 (PNEUMOVAX) 2019-04-03 00:00:00 Completed [facility] Influenza Virus Vaccine Quad IM Multi-dose 6+ MO 2019-04-03 00:00:00 Completed [facility] Pneumococcal Polysaccharide, PPSV23 (PNEUMOVAX) 2019-04-03 00:00:00 Completed [facility] Influenza Virus Vaccine Quad IM Multi-dose 6+ MO 2019-04-03 00:00:00 Completed [facility] Pneumococcal Polysaccharide, PPSV23 (PNEUMOVAX) 2019-04-03 00:00:00 Completed [facility] Influenza Virus Vaccine Quad IM Multi-dose 6+ MO 2019-04-03 00:00:00 Completed [facility] Pneumococcal Polysaccharide, PPSV23 (PNEUMOVAX) 2019-04-03 00:00:00 Completed [facility] Influenza Virus Vaccine Quad IM Multi-dose 6+ MO 2019-04-03 00:00:00 Completed [facility] Pneumococcal Polysaccharide, PPSV23 (PNEUMOVAX) 2019-04-03 00:00:00 Completed [facility] Influenza Virus Vaccine Quad IM Multi-dose 6+ MO 2019-04-03 00:00:00 Completed [facility] Pneumococcal Polysaccharide, PPSV23 (PNEUMOVAX) 2019-04-03 00:00:00 Completed [facility] Influenza Virus Vaccine Quad IM Multi-dose 6+ MO 2019-04-03 00:00:00 Completed [facility] Pneumococcal Polysaccharide, PPSV23 (PNEUMOVAX) 2019-04-03 00:00:00 Completed [facility] Influenza Virus Vaccine Quad IM Multi-dose 6+ MO 2019-04-03 00:00:00 Completed [facility] Pneumococcal Polysaccharide, PPSV23 (PNEUMOVAX) 2019-04-03 00:00:00 Completed [facility] Influenza Virus Vaccine Quad IM Multi-dose 6+ MO 2019-04-03 00:00:00 Completed [facility] Pneumococcal Polysaccharide, PPSV23 (PNEUMOVAX) 2019-04-03 00:00:00 Completed [facility] Influenza Virus Vaccine Quad IM Multi-dose 6+ MO 2019-04-03 00:00:00 Completed [facility] Pneumococcal Polysaccharide, PPSV23 (PNEUMOVAX) 2019-04-03 00:00:00 Completed [facility] Influenza Virus Vaccine Quad IM Multi-dose 6+ MO 2019-04-03 00:00:00 Completed [facility] Pneumococcal Polysaccharide, PPSV23 (PNEUMOVAX) 2019-04-03 00:00:00 Completed [facility] Influenza Virus Vaccine Quad IM Multi-dose 6+ MO 2019-04-03 00:00:00 Completed [facility] Pneumococcal Polysaccharide, PPSV23 (PNEUMOVAX) 2019-04-03 00:00:00 Completed [facility] Influenza Virus Vaccine Quad IM Multi-dose 6+ MO 2019-04-03 00:00:00 Completed [facility] Pneumococcal Polysaccharide, PPSV23 (PNEUMOVAX) 2019-04-03 00:00:00 Completed [facility] Influenza Virus Vaccine Quad IM Multi-dose 6+ MO 2019-04-03 00:00:00 Completed [facility] Pneumococcal Polysaccharide, PPSV23 (PNEUMOVAX) 2019-04-03 00:00:00 Completed [facility] Influenza Virus Vaccine Quad IM Multi-dose 6+ MO 2019-04-03 00:00:00 Completed [facility] Pneumococcal Polysaccharide, PPSV23 (PNEUMOVAX) 2019-04-03 00:00:00 Completed [facility] Influenza Virus Vaccine Quad IM Multi-dose 6+ MO 2019-04-03 00:00:00 Completed [facility] Pneumococcal Polysaccharide, PPSV23 (PNEUMOVAX) 2019-04-03 00:00:00 Completed [facility] Influenza Virus Vaccine Quad IM Multi-dose 6+ MO 2019-04-03 00:00:00 Completed [facility] Pneumococcal Polysaccharide, PPSV23 (PNEUMOVAX) 2019-04-03 00:00:00 Completed [facility] Influenza Virus Vaccine Quad IM Multi-dose 6+ MO 2019-04-03 00:00:00 Completed [facility] Pneumococcal Polysaccharide, PPSV23 (PNEUMOVAX) 2019-04-03 00:00:00 Completed [facility] Influenza Virus Vaccine Quad IM Multi-dose 6+ MO 2019-04-03 00:00:00 Completed [facility] Pneumococcal Polysaccharide, PPSV23 (PNEUMOVAX) 2019-04-03 00:00:00 Completed [facility] Influenza Virus Vaccine Quad IM Multi-dose 6+ MO 2019-04-03 00:00:00 Completed [facility] Pneumococcal Polysaccharide, PPSV23 (PNEUMOVAX) 2019-04-03 00:00:00 Completed [facility] Influenza Virus Vaccine Quad IM Multi-dose 6+ MO 2019-04-03 00:00:00 Completed [facility] Pneumococcal Polysaccharide, PPSV23 (PNEUMOVAX) 2019-04-03 00:00:00 Completed [facility] Influenza Virus Vaccine Quad IM Multi-dose 6+ MO 2019-04-03 00:00:00 Completed [facility] Pneumococcal Polysaccharide, PPSV23 (PNEUMOVAX) 2019-04-03 00:00:00 Completed [facility] Influenza Virus Vaccine Quad IM Multi-dose 6+ MO 2019-04-03 00:00:00 Completed [facility] Pneumococcal Polysaccharide, PPSV23 (PNEUMOVAX) 2019-04-03 00:00:00 Completed [facility] Influenza Virus Vaccine Quad IM Multi-dose 6+ MO 2019-04-03 00:00:00 Completed [facility] Pneumococcal Polysaccharide, PPSV23 (PNEUMOVAX) 2019-04-03 00:00:00 Completed [facility] Influenza Virus Vaccine Quad IM Multi-dose 6+ MO 2019-04-03 00:00:00 Completed [facility] Pneumococcal Polysaccharide, PPSV23 (PNEUMOVAX) 2019-04-03 00:00:00 Completed [facility] Influenza Virus Vaccine Quad IM Multi-dose 6+ MO 2019-04-03 00:00:00 Completed [facility] Pneumococcal Polysaccharide, PPSV23 (PNEUMOVAX) 2019-04-03 00:00:00 Completed [facility] Influenza Virus Vaccine Quad IM Multi-dose 6+ MO 2019-04-03 00:00:00 Completed [facility] Pneumococcal Polysaccharide, PPSV23 (PNEUMOVAX) 2019-04-03 00:00:00 Completed [facility] Influenza Virus Vaccine Quad IM Multi-dose 6+ MO 2019-04-03 00:00:00 Completed [facility] Pneumococcal Polysaccharide, PPSV23 (PNEUMOVAX) 2019-04-03 00:00:00 Completed Influenza Virus Vaccine Quad IM Multi-dose 6+ MO 2019-04-03 00:00:00 Completed Pneumococcal Polysaccharide, PPSV23 (PNEUMOVAX) 2019-04-03 00:00:00 Completed Influenza Virus Vaccine Quad IM Multi-dose 6+ MO 2019-04-03 00:00:00 Completed Pneumococcal Polysaccharide, PPSV23 (PNEUMOVAX) 2019-04-03 00:00:00 Completed Influenza High Dose 2018-04-24 00:00:00 Completed [facility] Influenza High Dose 2018-04-24 00:00:00 Completed [facility] Influenza High Dose 2018-04-24 00:00:00 Completed [facility] Influenza High Dose 2018-04-24 00:00:00 Completed [facility] Influenza High Dose 2018-04-24 00:00:00 Completed [facility] Influenza High Dose 2018-04-24 00:00:00 Completed [facility] Influenza High Dose 2018-04-24 00:00:00 Completed [facility] Influenza High Dose 2018-04-24 00:00:00 Completed [facility] Influenza High Dose 2018-04-24 00:00:00 Completed [facility] Influenza High Dose 2018-04-24 00:00:00 Completed [facility] Influenza High Dose 2018-04-24 00:00:00 Completed [facility] Influenza High Dose 2018-04-24 00:00:00 Completed [facility] Influenza High Dose 2018-04-24 00:00:00 Completed [facility] Influenza High Dose 2018-04-24 00:00:00 Completed [facility] Influenza High Dose 2018-04-24 00:00:00 Completed [facility] Influenza High Dose 2018-04-24 00:00:00 Completed [facility] Influenza High Dose 2018-04-24 00:00:00 Completed [facility] Influenza High Dose 2018-04-24 00:00:00 Completed [facility] Influenza High Dose 2018-04-24 00:00:00 Completed [facility] Influenza High Dose 2018-04-24 00:00:00 Completed [facility] Influenza High Dose 2018-04-24 00:00:00 Completed [facility] Influenza High Dose 2018-04-24 00:00:00 Completed [facility] Influenza High Dose 2018-04-24 00:00:00 Completed [facility] Influenza High Dose 2018-04-24 00:00:00 Completed [facility] Influenza High Dose 2018-04-24 00:00:00 Completed [facility] Influenza High Dose 2018-04-24 00:00:00 Completed [facility] Influenza High Dose 2018-04-24 00:00:00 Completed [facility] Influenza High Dose 2018-04-24 00:00:00 Completed [facility] Influenza High Dose 2018-04-24 00:00:00 Completed [facility] Influenza High Dose 2018-04-24 00:00:00 Completed [facility] Influenza High Dose 2018-04-24 00:00:00 Completed [facility] Influenza High Dose 2018-04-24 00:00:00 Completed [facility] Influenza High Dose 2018-04-24 00:00:00 Completed [facility] Influenza High Dose 2018-04-24 00:00:00 Completed [facility] Influenza High Dose 2018-04-24 00:00:00 Completed [facility] Influenza High Dose 2018-04-24 00:00:00 Completed [facility] Influenza High Dose 2018-04-24 00:00:00 Completed [facility] Influenza High Dose 2018-04-24 00:00:00 Completed [facility] Influenza High Dose 2018-04-24 00:00:00 Completed [facility] Influenza High Dose 2018-04-24 00:00:00 Completed [facility] Influenza High Dose 2018-04-24 00:00:00 Completed [facility] Influenza High Dose 2018-04-24 00:00:00 Completed [facility] Influenza High Dose 2018-04-24 00:00:00 Completed [facility] Influenza High Dose 2018-04-24 00:00:00 Completed [facility] Influenza High Dose 2018-04-24 00:00:00 Completed [facility] Influenza High Dose 2018-04-24 00:00:00 Completed [facility] Influenza High Dose 2018-04-24 00:00:00 Completed [facility] Influenza High Dose 2018-04-24 00:00:00 Completed [facility] Influenza High Dose 2018-04-24 00:00:00 Completed [facility] Influenza High Dose 2018-04-24 00:00:00 Completed [facility] Influenza High Dose 2018-04-24 00:00:00 Completed [facility] Influenza High Dose 2018-04-24 00:00:00 Completed [facility] Influenza High Dose 2018-04-24 00:00:00 Completed [facility] Influenza High Dose 2018-04-24 00:00:00 Completed [facility] Influenza High Dose 2018-04-24 00:00:00 Completed [facility] Influenza High Dose 2018-04-24 00:00:00 Completed [facility] Influenza High Dose 2018-04-24 00:00:00 Completed [facility] Influenza High Dose 2018-04-24 00:00:00 Completed [facility] Influenza High Dose 2018-04-24 00:00:00 Completed [facility] Influenza High Dose 2018-04-24 00:00:00 Completed [facility] Influenza High Dose 2018-04-24 00:00:00 Completed [facility] Influenza High Dose 2018-04-24 00:00:00 Completed [facility] Influenza High Dose 2018-04-24 00:00:00 Completed [facility] Influenza High Dose 2018-04-24 00:00:00 Completed [facility] Influenza High Dose 2018-04-24 00:00:00 Completed [facility] Influenza High Dose 2018-04-24 00:00:00 Completed [facility] Influenza High Dose 2018-04-24 00:00:00 Completed [facility] Influenza High Dose 2018-04-24 00:00:00 Completed [facility] Influenza High Dose 2018-04-24 00:00:00 Completed [facility] Influenza High Dose 2018-04-24 00:00:00 Completed [facility] Influenza High Dose 2018-04-24 00:00:00 Completed [facility] Influenza High Dose 2018-04-24 00:00:00 Completed [facility] Influenza High Dose 2018-04-24 00:00:00 Completed [facility] Influenza High Dose 2018-04-24 00:00:00 Completed [facility] Influenza High Dose 2018-04-24 00:00:00 Completed [facility] Influenza High Dose 2018-04-24 00:00:00 Completed [facility] Influenza High Dose 2018-04-24 00:00:00 Completed [facility] Influenza High Dose 2018-04-24 00:00:00 Completed [facility] Influenza High Dose 2018-04-24 00:00:00 Completed [facility] Influenza High Dose 2018-04-24 00:00:00 Completed [facility] Influenza High Dose 2018-04-24 00:00:00 Completed [facility] Influenza High Dose 2018-04-24 00:00:00 Completed [facility] Influenza High Dose 2018-04-24 00:00:00 Completed [facility] Influenza High Dose 2018-04-24 00:00:00 Completed [facility] Influenza High Dose 2018-04-24 00:00:00 Completed [facility] Influenza High Dose 2018-04-24 00:00:00 Completed [facility] Influenza High Dose 2018-04-24 00:00:00 Completed [facility] Influenza High Dose 2018-04-24 00:00:00 Completed [facility] Influenza High Dose 2018-04-24 00:00:00 Completed [facility] Influenza High Dose 2018-04-24 00:00:00 Completed [facility] Influenza High Dose 2018-04-24 00:00:00 Completed [facility] Influenza High Dose 2018-04-24 00:00:00 Completed [facility] Influenza High Dose 2018-04-24 00:00:00 Completed [facility] Influenza High Dose 2018-04-24 00:00:00 Completed [facility] Influenza High Dose 2018-04-24 00:00:00 Completed [facility] Influenza High Dose 2018-04-24 00:00:00 Completed [facility] Influenza High Dose 2018-04-24 00:00:00 Completed [facility] Influenza High Dose 2018-04-24 00:00:00 Completed [facility] Influenza High Dose 2018-04-24 00:00:00 Completed [facility] Influenza High Dose 2018-04-24 00:00:00 Completed [facility] Influenza High Dose 2018-04-24 00:00:00 Completed [facility] Influenza High Dose 2018-04-24 00:00:00 Completed [facility] Influenza High Dose 2018-04-24 00:00:00 Completed [facility] Influenza High Dose 2018-04-24 00:00:00 Completed [facility] Influenza High Dose 2018-04-24 00:00:00 Completed [facility] Influenza High Dose 2018-04-24 00:00:00 Completed [facility] Influenza High Dose 2018-04-24 00:00:00 Completed [facility] Influenza High Dose 2018-04-24 00:00:00 Completed [facility] Influenza High Dose 2018-04-24 00:00:00 Completed [facility] Influenza High Dose 2018-04-24 00:00:00 Completed [facility] Influenza High Dose 2018-04-24 00:00:00 Completed [facility] Influenza High Dose 2018-04-24 00:00:00 Completed [facility] Influenza High Dose 2018-04-24 00:00:00 Completed [facility] Influenza High Dose 2018-04-24 00:00:00 Completed [facility] Influenza High Dose 2018-04-24 00:00:00 Completed [facility] Influenza High Dose 2018-04-24 00:00:00 Completed [facility] Influenza High Dose 2018-04-24 00:00:00 Completed [facility] Influenza High Dose 2018-04-24 00:00:00 Completed [facility] Influenza High Dose 2018-04-24 00:00:00 Completed [facility] Influenza High Dose 2018-04-24 00:00:00 Completed [facility] Influenza High Dose 2018-04-24 00:00:00 Completed [facility] Influenza High Dose 2018-04-24 00:00:00 Completed [facility] Influenza High Dose 2018-04-24 00:00:00 Completed [facility] Influenza High Dose 2018-04-24 00:00:00 Completed [facility] Influenza High Dose 2018-04-24 00:00:00 Completed [facility] Influenza High Dose 2018-04-24 00:00:00 Completed [facility] Influenza, High-Dose, Trivalent, PF (FLUZONE) 2018-04-24 00:00:00 Completed Influenza, High-Dose, Trivalent, PF (FLUZONE) 2018-04-24 00:00:00 Completed Influenza, High-Dose, Trivalent, PF (FLUZONE) 2018-04-24 00:00:00 Completed Pneumococcal Polysaccharide, PPSV23 (PNEUMOVAX) 2017-10-03 00:00:00 Completed [facility] Pneumococcal Polysaccharide, PPSV23 (PNEUMOVAX) 2017-10-03 00:00:00 Completed [facility] Pneumococcal Polysaccharide, PPSV23 (PNEUMOVAX) 2017-10-03 00:00:00 Completed [facility] Pneumococcal Polysaccharide, PPSV23 (PNEUMOVAX) 2017-10-03 00:00:00 Completed [facility] Pneumococcal Polysaccharide, PPSV23 (PNEUMOVAX) 2017-10-03 00:00:00 Completed [facility] Pneumococcal Polysaccharide, PPSV23 (PNEUMOVAX) 2017-10-03 00:00:00 Completed [facility] Pneumococcal Polysaccharide, PPSV23 (PNEUMOVAX) 2017-10-03 00:00:00 Completed [facility] Pneumococcal Polysaccharide, PPSV23 (PNEUMOVAX) 2017-10-03 00:00:00 Completed [facility] Pneumococcal Polysaccharide, PPSV23 (PNEUMOVAX) 2017-10-03 00:00:00 Completed [facility] Pneumococcal Polysaccharide, PPSV23 (PNEUMOVAX) 2017-10-03 00:00:00 Completed [facility] Pneumococcal Polysaccharide, PPSV23 (PNEUMOVAX) 2017-10-03 00:00:00 Completed [facility] Pneumococcal Polysaccharide, PPSV23 (PNEUMOVAX) 2017-10-03 00:00:00 Completed [facility] Pneumococcal Polysaccharide, PPSV23 (PNEUMOVAX) 2017-10-03 00:00:00 Completed [facility] Pneumococcal Polysaccharide, PPSV23 (PNEUMOVAX) 2017-10-03 00:00:00 Completed [facility] Pneumococcal Polysaccharide, PPSV23 (PNEUMOVAX) 2017-10-03 00:00:00 Completed [facility] Pneumococcal Polysaccharide, PPSV23 (PNEUMOVAX) 2017-10-03 00:00:00 Completed [facility] Pneumococcal Polysaccharide, PPSV23 (PNEUMOVAX) 2017-10-03 00:00:00 Completed [facility] Pneumococcal Polysaccharide, PPSV23 (PNEUMOVAX) 2017-10-03 00:00:00 Completed [facility] Pneumococcal Polysaccharide, PPSV23 (PNEUMOVAX) 2017-10-03 00:00:00 Completed [facility] Pneumococcal Polysaccharide, PPSV23 (PNEUMOVAX) 2017-10-03 00:00:00 Completed [facility] Pneumococcal Polysaccharide, PPSV23 (PNEUMOVAX) 2017-10-03 00:00:00 Completed [facility] Pneumococcal Polysaccharide, PPSV23 (PNEUMOVAX) 2017-10-03 00:00:00 Completed [facility] Pneumococcal Polysaccharide, PPSV23 (PNEUMOVAX) 2017-10-03 00:00:00 Completed [facility] Pneumococcal Polysaccharide, PPSV23 (PNEUMOVAX) 2017-10-03 00:00:00 Completed [facility] Pneumococcal Polysaccharide, PPSV23 (PNEUMOVAX) 2017-10-03 00:00:00 Completed [facility] Pneumococcal Polysaccharide, PPSV23 (PNEUMOVAX) 2017-10-03 00:00:00 Completed [facility] Pneumococcal Polysaccharide, PPSV23 (PNEUMOVAX) 2017-10-03 00:00:00 Completed [facility] Pneumococcal Polysaccharide, PPSV23 (PNEUMOVAX) 2017-10-03 00:00:00 Completed [facility] Pneumococcal Polysaccharide, PPSV23 (PNEUMOVAX) 2017-10-03 00:00:00 Completed [facility] Pneumococcal Polysaccharide, PPSV23 (PNEUMOVAX) 2017-10-03 00:00:00 Completed [facility] Pneumococcal Polysaccharide, PPSV23 (PNEUMOVAX) 2017-10-03 00:00:00 Completed [facility] Pneumococcal Polysaccharide, PPSV23 (PNEUMOVAX) 2017-10-03 00:00:00 Completed [facility] Pneumococcal Polysaccharide, PPSV23 (PNEUMOVAX) 2017-10-03 00:00:00 Completed [facility] Pneumococcal Polysaccharide, PPSV23 (PNEUMOVAX) 2017-10-03 00:00:00 Completed [facility] Pneumococcal Polysaccharide, PPSV23 (PNEUMOVAX) 2017-10-03 00:00:00 Completed [facility] Pneumococcal Polysaccharide, PPSV23 (PNEUMOVAX) 2017-10-03 00:00:00 Completed [facility] Pneumococcal Polysaccharide, PPSV23 (PNEUMOVAX) 2017-10-03 00:00:00 Completed [facility] Pneumococcal Polysaccharide, PPSV23 (PNEUMOVAX) 2017-10-03 00:00:00 Completed [facility] Pneumococcal Polysaccharide, PPSV23 (PNEUMOVAX) 2017-10-03 00:00:00 Completed [facility] Pneumococcal Polysaccharide, PPSV23 (PNEUMOVAX) 2017-10-03 00:00:00 Completed [facility] Pneumococcal Polysaccharide, PPSV23 (PNEUMOVAX) 2017-10-03 00:00:00 Completed [facility] Pneumococcal Polysaccharide, PPSV23 (PNEUMOVAX) 2017-10-03 00:00:00 Completed [facility] Pneumococcal Polysaccharide, PPSV23 (PNEUMOVAX) 2017-10-03 00:00:00 Completed [facility] Pneumococcal Polysaccharide, PPSV23 (PNEUMOVAX) 2017-10-03 00:00:00 Completed [facility] Pneumococcal Polysaccharide, PPSV23 (PNEUMOVAX) 2017-10-03 00:00:00 Completed [facility] Pneumococcal Polysaccharide, PPSV23 (PNEUMOVAX) 2017-10-03 00:00:00 Completed [facility] Pneumococcal Polysaccharide, PPSV23 (PNEUMOVAX) 2017-10-03 00:00:00 Completed [facility] Pneumococcal Polysaccharide, PPSV23 (PNEUMOVAX) 2017-10-03 00:00:00 Completed [facility] Pneumococcal Polysaccharide, PPSV23 (PNEUMOVAX) 2017-10-03 00:00:00 Completed [facility] Pneumococcal Polysaccharide, PPSV23 (PNEUMOVAX) 2017-10-03 00:00:00 Completed [facility] Pneumococcal Polysaccharide, PPSV23 (PNEUMOVAX) 2017-10-03 00:00:00 Completed [facility] Pneumococcal Polysaccharide, PPSV23 (PNEUMOVAX) 2017-10-03 00:00:00 Completed [facility] Pneumococcal Polysaccharide, PPSV23 (PNEUMOVAX) 2017-10-03 00:00:00 Completed [facility] Pneumococcal Polysaccharide, PPSV23 (PNEUMOVAX) 2017-10-03 00:00:00 Completed [facility] Pneumococcal Polysaccharide, PPSV23 (PNEUMOVAX) 2017-10-03 00:00:00 Completed [facility] Pneumococcal Polysaccharide, PPSV23 (PNEUMOVAX) 2017-10-03 00:00:00 Completed [facility] Pneumococcal Polysaccharide, PPSV23 (PNEUMOVAX) 2017-10-03 00:00:00 Completed [facility] Pneumococcal Polysaccharide, PPSV23 (PNEUMOVAX) 2017-10-03 00:00:00 Completed [facility] Pneumococcal Polysaccharide, PPSV23 (PNEUMOVAX) 2017-10-03 00:00:00 Completed [facility] Pneumococcal Polysaccharide, PPSV23 (PNEUMOVAX) 2017-10-03 00:00:00 Completed [facility] Pneumococcal Polysaccharide, PPSV23 (PNEUMOVAX) 2017-10-03 00:00:00 Completed [facility] Pneumococcal Polysaccharide, PPSV23 (PNEUMOVAX) 2017-10-03 00:00:00 Completed [facility] Pneumococcal Polysaccharide, PPSV23 (PNEUMOVAX) 2017-10-03 00:00:00 Completed [facility] Pneumococcal Polysaccharide, PPSV23 (PNEUMOVAX) 2017-10-03 00:00:00 Completed [facility] Pneumococcal Polysaccharide, PPSV23 (PNEUMOVAX) 2017-10-03 00:00:00 Completed [facility] Pneumococcal Polysaccharide, PPSV23 (PNEUMOVAX) 2017-10-03 00:00:00 Completed [facility] Pneumococcal Polysaccharide, PPSV23 (PNEUMOVAX) 2017-10-03 00:00:00 Completed [facility] Pneumococcal Polysaccharide, PPSV23 (PNEUMOVAX) 2017-10-03 00:00:00 Completed [facility] Pneumococcal Polysaccharide, PPSV23 (PNEUMOVAX) 2017-10-03 00:00:00 Completed [facility] Pneumococcal Polysaccharide, PPSV23 (PNEUMOVAX) 2017-10-03 00:00:00 Completed [facility] Pneumococcal Polysaccharide, PPSV23 (PNEUMOVAX) 2017-10-03 00:00:00 Completed [facility] Pneumococcal Polysaccharide, PPSV23 (PNEUMOVAX) 2017-10-03 00:00:00 Completed [facility] Pneumococcal Polysaccharide, PPSV23 (PNEUMOVAX) 2017-10-03 00:00:00 Completed [facility] Pneumococcal Polysaccharide, PPSV23 (PNEUMOVAX) 2017-10-03 00:00:00 Completed [facility] Pneumococcal Polysaccharide, PPSV23 (PNEUMOVAX) 2017-10-03 00:00:00 Completed [facility] Pneumococcal Polysaccharide, PPSV23 (PNEUMOVAX) 2017-10-03 00:00:00 Completed [facility] Pneumococcal Polysaccharide, PPSV23 (PNEUMOVAX) 2017-10-03 00:00:00 Completed [facility] Pneumococcal Polysaccharide, PPSV23 (PNEUMOVAX) 2017-10-03 00:00:00 Completed [facility] Pneumococcal Polysaccharide, PPSV23 (PNEUMOVAX) 2017-10-03 00:00:00 Completed [facility] Pneumococcal Polysaccharide, PPSV23 (PNEUMOVAX) 2017-10-03 00:00:00 Completed [facility] Pneumococcal Polysaccharide, PPSV23 (PNEUMOVAX) 2017-10-03 00:00:00 Completed [facility] Pneumococcal Polysaccharide, PPSV23 (PNEUMOVAX) 2017-10-03 00:00:00 Completed [facility] Pneumococcal Polysaccharide, PPSV23 (PNEUMOVAX) 2017-10-03 00:00:00 Completed [facility] Pneumococcal Polysaccharide, PPSV23 (PNEUMOVAX) 2017-10-03 00:00:00 Completed [facility] Pneumococcal Polysaccharide, PPSV23 (PNEUMOVAX) 2017-10-03 00:00:00 Completed [facility] Pneumococcal Polysaccharide, PPSV23 (PNEUMOVAX) 2017-10-03 00:00:00 Completed [facility] Pneumococcal Polysaccharide, PPSV23 (PNEUMOVAX) 2017-10-03 00:00:00 Completed [facility] Pneumococcal Polysaccharide, PPSV23 (PNEUMOVAX) 2017-10-03 00:00:00 Completed [facility] Pneumococcal Polysaccharide, PPSV23 (PNEUMOVAX) 2017-10-03 00:00:00 Completed [facility] Pneumococcal Polysaccharide, PPSV23 (PNEUMOVAX) 2017-10-03 00:00:00 Completed [facility] Pneumococcal Polysaccharide, PPSV23 (PNEUMOVAX) 2017-10-03 00:00:00 Completed [facility] Pneumococcal Polysaccharide, PPSV23 (PNEUMOVAX) 2017-10-03 00:00:00 Completed [facility] Pneumococcal Polysaccharide, PPSV23 (PNEUMOVAX) 2017-10-03 00:00:00 Completed [facility] Pneumococcal Polysaccharide, PPSV23 (PNEUMOVAX) 2017-10-03 00:00:00 Completed [facility] Pneumococcal Polysaccharide, PPSV23 (PNEUMOVAX) 2017-10-03 00:00:00 Completed [facility] Pneumococcal Polysaccharide, PPSV23 (PNEUMOVAX) 2017-10-03 00:00:00 Completed [facility] Pneumococcal Polysaccharide, PPSV23 (PNEUMOVAX) 2017-10-03 00:00:00 Completed [facility] Pneumococcal Polysaccharide, PPSV23 (PNEUMOVAX) 2017-10-03 00:00:00 Completed [facility] Pneumococcal Polysaccharide, PPSV23 (PNEUMOVAX) 2017-10-03 00:00:00 Completed [facility] Pneumococcal Polysaccharide, PPSV23 (PNEUMOVAX) 2017-10-03 00:00:00 Completed [facility] Pneumococcal Polysaccharide, PPSV23 (PNEUMOVAX) 2017-10-03 00:00:00 Completed [facility] Pneumococcal Polysaccharide, PPSV23 (PNEUMOVAX) 2017-10-03 00:00:00 Completed [facility] Pneumococcal Polysaccharide, PPSV23 (PNEUMOVAX) 2017-10-03 00:00:00 Completed [facility] Pneumococcal Polysaccharide, PPSV23 (PNEUMOVAX) 2017-10-03 00:00:00 Completed [facility] Pneumococcal Polysaccharide, PPSV23 (PNEUMOVAX) 2017-10-03 00:00:00 Completed [facility] Pneumococcal Polysaccharide, PPSV23 (PNEUMOVAX) 2017-10-03 00:00:00 Completed [facility] Pneumococcal Polysaccharide, PPSV23 (PNEUMOVAX) 2017-10-03 00:00:00 Completed [facility] Pneumococcal Polysaccharide, PPSV23 (PNEUMOVAX) 2017-10-03 00:00:00 Completed [facility] Pneumococcal Polysaccharide, PPSV23 (PNEUMOVAX) 2017-10-03 00:00:00 Completed [facility] Pneumococcal Polysaccharide, PPSV23 (PNEUMOVAX) 2017-10-03 00:00:00 Completed [facility] Pneumococcal Polysaccharide, PPSV23 (PNEUMOVAX) 2017-10-03 00:00:00 Completed [facility] Pneumococcal Polysaccharide, PPSV23 (PNEUMOVAX) 2017-10-03 00:00:00 Completed [facility] Pneumococcal Polysaccharide, PPSV23 (PNEUMOVAX) 2017-10-03 00:00:00 Completed [facility] Pneumococcal Polysaccharide, PPSV23 (PNEUMOVAX) 2017-10-03 00:00:00 Completed [facility] Pneumococcal Polysaccharide, PPSV23 (PNEUMOVAX) 2017-10-03 00:00:00 Completed [facility] Pneumococcal Polysaccharide, PPSV23 (PNEUMOVAX) 2017-10-03 00:00:00 Completed [facility] Pneumococcal Polysaccharide, PPSV23 (PNEUMOVAX) 2017-10-03 00:00:00 Completed [facility] Pneumococcal Polysaccharide, PPSV23 (PNEUMOVAX) 2017-10-03 00:00:00 Completed [facility] Pneumococcal Polysaccharide, PPSV23 (PNEUMOVAX) 2017-10-03 00:00:00 Completed [facility] Pneumococcal Polysaccharide, PPSV23 (PNEUMOVAX) 2017-10-03 00:00:00 Completed [facility] Pneumococcal Polysaccharide, PPSV23 (PNEUMOVAX) 2017-10-03 00:00:00 Completed [facility] Pneumococcal Polysaccharide, PPSV23 (PNEUMOVAX) 2017-10-03 00:00:00 Completed [facility] Pneumococcal Polysaccharide, PPSV23 (PNEUMOVAX) 2017-10-03 00:00:00 Completed [facility] Pneumococcal Polysaccharide, PPSV23 (PNEUMOVAX) 2017-10-03 00:00:00 Completed [facility] Pneumococcal Polysaccharide, PPSV23 (PNEUMOVAX) 2017-10-03 00:00:00 Completed [facility] Pneumococcal Polysaccharide, PPSV23 (PNEUMOVAX) 2017-10-03 00:00:00 Completed [facility] Pneumococcal Unspecified 2017-10-03 00:00:00 Completed [facility] Pneumococcal Polysaccharide, PPSV23 (PNEUMOVAX) 2017-10-03 00:00:00 Completed Pneumococcal Polysaccharide, PPSV23 (PNEUMOVAX) 2017-10-03 00:00:00 Completed Pneumococcal Unspecified 2017-10-03 00:00:00 Completed [facility] Pneumococcal Polysaccharide, PPSV23 (PNEUMOVAX) 2017-10-03 00:00:00 Completed Pneumococcal Unspecified 2017-10-03 00:00:00 Completed [facility] Influenza High Dose 2017-04-13 00:00:00 Completed [facility] Influenza High Dose 2017-04-13 00:00:00 Completed [facility] Influenza High Dose 2017-04-13 00:00:00 Completed [facility] Influenza High Dose 2017-04-13 00:00:00 Completed [facility] Influenza High Dose 2017-04-13 00:00:00 Completed [facility] Influenza High Dose 2017-04-13 00:00:00 Completed [facility] Influenza High Dose 2017-04-13 00:00:00 Completed [facility] Influenza High Dose 2017-04-13 00:00:00 Completed [facility] Influenza High Dose 2017-04-13 00:00:00 Completed [facility] Influenza High Dose 2017-04-13 00:00:00 Completed [facility] Influenza High Dose 2017-04-13 00:00:00 Completed [facility] Influenza High Dose 2017-04-13 00:00:00 Completed [facility] Influenza High Dose 2017-04-13 00:00:00 Completed [facility] Influenza High Dose 2017-04-13 00:00:00 Completed [facility] Influenza High Dose 2017-04-13 00:00:00 Completed [facility] Influenza High Dose 2017-04-13 00:00:00 Completed [facility] Influenza High Dose 2017-04-13 00:00:00 Completed [facility] Influenza High Dose 2017-04-13 00:00:00 Completed [facility] Influenza High Dose 2017-04-13 00:00:00 Completed [facility] Influenza High Dose 2017-04-13 00:00:00 Completed [facility] Influenza High Dose 2017-04-13 00:00:00 Completed [facility] Influenza High Dose 2017-04-13 00:00:00 Completed [facility] Influenza High Dose 2017-04-13 00:00:00 Completed [facility] Influenza High Dose 2017-04-13 00:00:00 Completed [facility] Influenza High Dose 2017-04-13 00:00:00 Completed [facility] Influenza High Dose 2017-04-13 00:00:00 Completed [facility] Influenza High Dose 2017-04-13 00:00:00 Completed [facility] Influenza High Dose 2017-04-13 00:00:00 Completed [facility] Influenza High Dose 2017-04-13 00:00:00 Completed [facility] Influenza High Dose 2017-04-13 00:00:00 Completed [facility] Influenza High Dose 2017-04-13 00:00:00 Completed [facility] Influenza High Dose 2017-04-13 00:00:00 Completed [facility] Influenza High Dose 2017-04-13 00:00:00 Completed [facility] Influenza High Dose 2017-04-13 00:00:00 Completed [facility] Influenza High Dose 2017-04-13 00:00:00 Completed [facility] Influenza High Dose 2017-04-13 00:00:00 Completed [facility] Influenza High Dose 2017-04-13 00:00:00 Completed [facility] Influenza High Dose 2017-04-13 00:00:00 Completed [facility] Influenza High Dose 2017-04-13 00:00:00 Completed [facility] Influenza High Dose 2017-04-13 00:00:00 Completed [facility] Influenza High Dose 2017-04-13 00:00:00 Completed [facility] Influenza High Dose 2017-04-13 00:00:00 Completed [facility] Influenza High Dose 2017-04-13 00:00:00 Completed [facility] Influenza High Dose 2017-04-13 00:00:00 Completed [facility] Influenza High Dose 2017-04-13 00:00:00 Completed [facility] Influenza High Dose 2017-04-13 00:00:00 Completed [facility] Influenza High Dose 2017-04-13 00:00:00 Completed [facility] Influenza High Dose 2017-04-13 00:00:00 Completed [facility] Influenza High Dose 2017-04-13 00:00:00 Completed [facility] Influenza High Dose 2017-04-13 00:00:00 Completed [facility] Influenza High Dose 2017-04-13 00:00:00 Completed [facility] Influenza High Dose 2017-04-13 00:00:00 Completed [facility] Influenza High Dose 2017-04-13 00:00:00 Completed [facility] Influenza High Dose 2017-04-13 00:00:00 Completed [facility] Influenza High Dose 2017-04-13 00:00:00 Completed [facility] Influenza High Dose 2017-04-13 00:00:00 Completed [facility] Influenza High Dose 2017-04-13 00:00:00 Completed [facility] Influenza High Dose 2017-04-13 00:00:00 Completed [facility] Influenza High Dose 2017-04-13 00:00:00 Completed [facility] Influenza High Dose 2017-04-13 00:00:00 Completed [facility] Influenza High Dose 2017-04-13 00:00:00 Completed [facility] Influenza High Dose 2017-04-13 00:00:00 Completed [facility] Influenza High Dose 2017-04-13 00:00:00 Completed [facility] Influenza High Dose 2017-04-13 00:00:00 Completed [facility] Influenza High Dose 2017-04-13 00:00:00 Completed [facility] Influenza High Dose 2017-04-13 00:00:00 Completed [facility] Influenza High Dose 2017-04-13 00:00:00 Completed [facility] Influenza High Dose 2017-04-13 00:00:00 Completed [facility] Influenza High Dose 2017-04-13 00:00:00 Completed [facility] Influenza High Dose 2017-04-13 00:00:00 Completed [facility] Influenza High Dose 2017-04-13 00:00:00 Completed [facility] Influenza High Dose 2017-04-13 00:00:00 Completed [facility] Influenza High Dose 2017-04-13 00:00:00 Completed [facility] Influenza High Dose 2017-04-13 00:00:00 Completed [facility] Influenza High Dose 2017-04-13 00:00:00 Completed [facility] Influenza High Dose 2017-04-13 00:00:00 Completed [facility] Influenza High Dose 2017-04-13 00:00:00 Completed [facility] Influenza High Dose 2017-04-13 00:00:00 Completed [facility] Influenza High Dose 2017-04-13 00:00:00 Completed [facility] Influenza High Dose 2017-04-13 00:00:00 Completed [facility] Influenza High Dose 2017-04-13 00:00:00 Completed [facility] Influenza High Dose 2017-04-13 00:00:00 Completed [facility] Influenza High Dose 2017-04-13 00:00:00 Completed [facility] Influenza High Dose 2017-04-13 00:00:00 Completed [facility] Influenza High Dose 2017-04-13 00:00:00 Completed [facility] Influenza High Dose 2017-04-13 00:00:00 Completed [facility] Influenza High Dose 2017-04-13 00:00:00 Completed [facility] Influenza High Dose 2017-04-13 00:00:00 Completed [facility] Influenza High Dose 2017-04-13 00:00:00 Completed [facility] Influenza High Dose 2017-04-13 00:00:00 Completed [facility] Influenza High Dose 2017-04-13 00:00:00 Completed [facility] Influenza High Dose 2017-04-13 00:00:00 Completed [facility] Influenza High Dose 2017-04-13 00:00:00 Completed [facility] Influenza High Dose 2017-04-13 00:00:00 Completed [facility] Influenza High Dose 2017-04-13 00:00:00 Completed [facility] Influenza High Dose 2017-04-13 00:00:00 Completed [facility] Influenza High Dose 2017-04-13 00:00:00 Completed [facility] Influenza High Dose 2017-04-13 00:00:00 Completed [facility] Influenza High Dose 2017-04-13 00:00:00 Completed [facility] Influenza High Dose 2017-04-13 00:00:00 Completed [facility] Influenza High Dose 2017-04-13 00:00:00 Completed [facility] Influenza High Dose 2017-04-13 00:00:00 Completed [facility] Influenza High Dose 2017-04-13 00:00:00 Completed [facility] Influenza High Dose 2017-04-13 00:00:00 Completed [facility] Influenza High Dose 2017-04-13 00:00:00 Completed [facility] Influenza High Dose 2017-04-13 00:00:00 Completed [facility] Influenza High Dose 2017-04-13 00:00:00 Completed [facility] Influenza High Dose 2017-04-13 00:00:00 Completed [facility] Influenza High Dose 2017-04-13 00:00:00 Completed [facility] Influenza High Dose 2017-04-13 00:00:00 Completed [facility] Influenza High Dose 2017-04-13 00:00:00 Completed [facility] Influenza High Dose 2017-04-13 00:00:00 Completed [facility] Influenza High Dose 2017-04-13 00:00:00 Completed [facility] Influenza High Dose 2017-04-13 00:00:00 Completed [facility] Influenza High Dose 2017-04-13 00:00:00 Completed [facility] Influenza High Dose 2017-04-13 00:00:00 Completed [facility] Influenza High Dose 2017-04-13 00:00:00 Completed [facility] Influenza High Dose 2017-04-13 00:00:00 Completed [facility] Influenza High Dose 2017-04-13 00:00:00 Completed [facility] Influenza High Dose 2017-04-13 00:00:00 Completed [facility] Influenza High Dose 2017-04-13 00:00:00 Completed [facility] Influenza High Dose 2017-04-13 00:00:00 Completed [facility] Influenza High Dose 2017-04-13 00:00:00 Completed [facility] Influenza High Dose 2017-04-13 00:00:00 [facility] [facility] [place] Influ[facility] Dose 2017-04-13 00:00:00 Completed [facility] Influenza High Dose 2017-04-13 00:00:00 Completed [facility] Influenza, High-Dose, Trivalent, PF (FLUZONE) 2017-04-13 00:00:00 Completed Influenza, High-Dose, Trivalent, PF (FLUZONE) 2017-04-13 00:00:00 Completed Influenza, High-Dose, Trivalent, PF (FLUZONE) 2017-04-13 00:00:00 Completed Pneumococcal 13 Conjugate, PCV13 (Prevnar 13) 2016-07-12 00:00:00 Completed [facility] Influenza High Dose 2016-07-12 00:00:00 Completed [facility] Pneumococcal Polysaccharide, PPSV23 (PNEUMOVAX) 2016-07-12 00:00:00 Completed [facility] Pneumococcal 13 Conjugate, PCV13 (Prevnar 13) 2016-07-12 00:00:00 Completed [facility] Influenza High Dose 2016-07-12 00:00:00 Completed [facility] Pneumococcal Polysaccharide, PPSV23 (PNEUMOVAX) 2016-07-12 00:00:00 Completed [facility] Pneumococcal 13 Conjugate, PCV13 (Prevnar 13) 2016-07-12 00:00:00 Completed [facility] Influenza High Dose 2016-07-12 00:00:00 Completed [facility] Pneumococcal Polysaccharide, PPSV23 (PNEUMOVAX) 2016-07-12 00:00:00 Completed [facility] Pneumococcal 13 Conjugate, PCV13 (Prevnar 13) 2016-07-12 00:00:00 Completed [facility] Influenza High Dose 2016-07-12 00:00:00 Completed [facility] Pneumococcal Polysaccharide, PPSV23 (PNEUMOVAX) 2016-07-12 00:00:00 Completed [facility] Pneumococcal 13 Conjugate, PCV13 (Prevnar 13) 2016-07-12 00:00:00 Completed [facility] Influenza High Dose 2016-07-12 00:00:00 Completed [facility] Pneumococcal Polysaccharide, PPSV23 (PNEUMOVAX) 2016-07-12 00:00:00 Completed [facility] Pneumococcal 13 Conjugate, PCV13 (Prevnar 13) 2016-07-12 00:00:00 Completed [facility] Influenza High Dose 2016-07-12 00:00:00 Completed [facility] Pneumococcal Polysaccharide, PPSV23 (PNEUMOVAX) 2016-07-12 00:00:00 Completed [facility] Pneumococcal 13 Conjugate, PCV13 (Prevnar 13) 2016-07-12 00:00:00 Completed [facility] Influenza High Dose 2016-07-12 00:00:00 Completed [facility] Pneumococcal Polysaccharide, PPSV23 (PNEUMOVAX) 2016-07-12 00:00:00 Completed [facility] Pneumococcal 13 Conjugate, PCV13 (Prevnar 13) 2016-07-12 00:00:00 Completed [facility] Influenza High Dose 2016-07-12 00:00:00 Completed [facility] Pneumococcal Polysaccharide, PPSV23 (PNEUMOVAX) 2016-07-12 00:00:00 Completed [facility] Pneumococcal 13 Conjugate, PCV13 (Prevnar 13) 2016-07-12 00:00:00 Completed [facility] Influenza High Dose 2016-07-12 00:00:00 Completed [facility] Pneumococcal Polysaccharide, PPSV23 (PNEUMOVAX) 2016-07-12 00:00:00 Completed [facility] Pneumococcal 13 Conjugate, PCV13 (Prevnar 13) 2016-07-12 00:00:00 Completed [facility] Influenza High Dose 2016-07-12 00:00:00 Completed [facility] Pneumococcal Polysaccharide, PPSV23 (PNEUMOVAX) 2016-07-12 00:00:00 Completed [facility] Pneumococcal 13 Conjugate, PCV13 (Prevnar 13) 2016-07-12 00:00:00 Completed [facility] Influenza High Dose 2016-07-12 00:00:00 Completed [facility] Pneumococcal Polysaccharide, PPSV23 (PNEUMOVAX) 2016-07-12 00:00:00 Completed [facility] Pneumococcal 13 Conjugate, PCV13 (Prevnar 13) 2016-07-12 00:00:00 Completed [facility] Influenza High Dose 2016-07-12 00:00:00 Completed [facility] Pneumococcal Polysaccharide, PPSV23 (PNEUMOVAX) 2016-07-12 00:00:00 Completed [facility] Pneumococcal 13 Conjugate, PCV13 (Prevnar 13) 2016-07-12 00:00:00 Completed [facility] Influenza High Dose 2016-07-12 00:00:00 Completed [facility] Pneumococcal Polysaccharide, PPSV23 (PNEUMOVAX) 2016-07-12 00:00:00 Completed [facility] Pneumococcal 13 Conjugate, PCV13 (Prevnar 13) 2016-07-12 00:00:00 Completed [facility] [place] Influenza High Dose 2016-07-12 00:00:00 Completed [facility] Pneumococcal Polysaccharide, PPSV23 (PNEUMOVAX) 2016-07-12 00:00:00 Completed [facility] Pneumococcal 13 Conjugate, PCV13 (Prevnar 13) 2016-07-12 00:00:00 Completed [facility] Influenza High Dose 2016-07-12 00:00:00 Completed [facility] Pneumococcal Polysaccharide, PPSV23 (PNEUMOVAX) 2016-07-12 00:00:00 Completed [facility] Pneumococcal 13 Conjugate, PCV13 (Prevnar 13) 2016-07-12 00:00:00 Completed [facility] Influenza High Dose 2016-07-12 00:00:00 Completed [facility] Pneumococcal Polysaccharide, PPSV23 (PNEUMOVAX) 2016-07-12 00:00:00 Completed [facility] Pneumococcal 13 Conjugate, PCV13 (Prevnar 13) 2016-07-12 00:00:00 Completed [facility] Influenza High Dose 2016-07-12 00:00:00 Completed [facility] Pneumococcal Polysaccharide, PPSV23 (PNEUMOVAX) 2016-07-12 00:00:00 Completed [facility] Pneumococcal 13 Conjugate, PCV13 (Prevnar 13) 2016-07-12 00:00:00 Completed [facility] [place] Influenza High Dose 2016-07-12 00:00:00 Completed [facility] Pneumococcal Polysaccharide, PPSV23 (PNEUMOVAX) 2016-07-12 00:00:00 Completed [facility] [place] Pneumococcal 13 Conjugate, PCV13 (Prevnar 13) 2016-07-12 00:00:00 Completed [facility] Influenza High Dose 2016-07-12 00:00:00 Completed [facility] Pneumococcal Polysaccharide, PPSV23 (PNEUMOVAX) 2016-07-12 00:00:00 Completed [facility] Pneumococcal 13 Conjugate, PCV13 (Prevnar 13) 2016-07-12 00:00:00 Completed [facility] Influenza High Dose 2016-07-12 00:00:00 Completed [facility] Pneumococcal Polysaccharide, PPSV23 (PNEUMOVAX) 2016-07-12 00:00:00 Completed [facility] Pneumococcal 13 Conjugate, PCV13 (Prevnar 13) 2016-07-12 00:00:00 Completed [facility] [place] Influenza High Dose 2016-07-12 00:00:00 Completed [facility] Pneumococcal Polysaccharide, PPSV23 (PNEUMOVAX) 2016-07-12 00:00:00 Completed [facility] Pneumococcal 13 Conjugate, PCV13 (Prevnar 13) 2016-07-12 00:00:00 Completed [facility] Influenza High Dose 2016-07-12 00:00:00 Completed [facility] Pneumococcal Polysaccharide, PPSV23 (PNEUMOVAX) 2016-07-12 00:00:00 Completed [facility] Pneumococcal 13 Conjugate, PCV13 (Prevnar 13) 2016-07-12 00:00:00 Completed [facility] Influenza High Dose 2016-07-12 00:00:00 Completed [facility] Pneumococcal Polysaccharide, PPSV23 (PNEUMOVAX) 2016-07-12 00:00:00 Completed [facility] [place] Pneumococcal 13 Conjugate, PCV13 (Prevnar 13) 2016-07-12 00:00:00 Completed [facility] Influenza High Dose 2016-07-12 00:00:00 Completed [facility] Pneumococcal Polysaccharide, PPSV23 (PNEUMOVAX) 2016-07-12 00:00:00 Completed [facility] Pneumococcal 13 Conjugate, PCV13 (Prevnar 13) 2016-07-12 00:00:00 Completed [facility] Influenza High Dose 2016-07-12 00:00:00 Completed [facility] Pneumococcal Polysaccharide, PPSV23 (PNEUMOVAX) 2016-07-12 00:00:00 Completed [facility] [place] Pneumococcal 13 Conjugate, PCV13 (Prevnar 13) 2016-07-12 00:00:00 Completed [facility] [place] Influenza High Dose 2016-07-12 00:00:00 Completed [facility] Pneumococcal Polysaccharide, PPSV23 (PNEUMOVAX) 2016-07-12 00:00:00 Completed [facility] [place] Pneumococcal 13 Conjugate, PCV13 (Prevnar 13) 2016-07-12 00:00:00 Completed [facility] [place] Influenza High Dose 2016-07-12 00:00:00 Completed [facility] Pneumococcal Polysaccharide, PPSV23 (PNEUMOVAX) 2016-07-12 00:00:00 Completed [facility] [place] Pneumococcal 13 Conjugate, PCV13 (Prevnar 13) 2016-07-12 00:00:00 Completed [facility] [place] Influenza High Dose 2016-07-12 00:00:00 Completed [facility] Pneumococcal Polysaccharide, PPSV23 (PNEUMOVAX) 2016-07-12 00:00:00 Completed [facility] [place] Pneumococcal 13 Conjugate, PCV13 (Prevnar 13) 2016-07-12 00:00:00 Completed [facility] [place] Influenza High Dose 2016-07-12 00:00:00 Completed [facility] Pneumococcal Polysaccharide, PPSV23 (PNEUMOVAX) 2016-07-12 00:00:00 Completed [facility] [place] Pneumococcal 13 Conjugate, PCV13 (Prevnar 13) 2016-07-12 00:00:00 Completed [facility] [place] Influenza High Dose 2016-07-12 00:00:00 Completed [facility] Pneumococcal Polysaccharide, PPSV23 (PNEUMOVAX) 2016-07-12 00:00:00 Completed [facility] [place] Pneumococcal 13 Conjugate, PCV13 (Prevnar 13) 2016-07-12 00:00:00 Completed [facility] [place] Influenza High Dose 2016-07-12 00:00:00 Completed [facility] Pneumococcal Polysaccharide, PPSV23 (PNEUMOVAX) 2016-07-12 00:00:00 Completed [facility] [place] Pneumococcal 13 Conjugate, PCV13 (Prevnar 13) 2016-07-12 00:00:00 Completed [facility] [place] Influenza High Dose 2016-07-12 00:00:00 Completed [facility] Pneumococcal Polysaccharide, PPSV23 (PNEUMOVAX) 2016-07-12 00:00:00 Completed [facility] [place] Pneumococcal 13 Conjugate, PCV13 (Prevnar 13) 2016-07-12 00:00:00 Completed [facility] [place] Influenza High Dose 2016-07-12 00:00:00 Completed [facility] Pneumococcal Polysaccharide, PPSV23 (PNEUMOVAX) 2016-07-12 00:00:00 Completed [facility] [place] Pneumococcal 13 Conjugate, PCV13 (Prevnar 13) 2016-07-12 00:00:00 Completed [facility] Influenza High Dose 2016-07-12 00:00:00 Completed [facility] Pneumococcal Polysaccharide, PPSV23 (PNEUMOVAX) 2016-07-12 00:00:00 Completed [facility] Pneumococcal 13 Conjugate, PCV13 (Prevnar 13) 2016-07-12 00:00:00 Completed [facility] Influenza High Dose 2016-07-12 00:00:00 Completed [facility] Pneumococcal Polysaccharide, PPSV23 (PNEUMOVAX) 2016-07-12 00:00:00 Completed [facility] Pneumococcal 13 Conjugate, PCV13 (Prevnar 13) 2016-07-12 00:00:00 Completed [facility] Influenza High Dose 2016-07-12 00:00:00 Completed [facility] Pneumococcal Polysaccharide, PPSV23 (PNEUMOVAX) 2016-07-12 00:00:00 Completed [facility] Pneumococcal 13 Conjugate, PCV13 (Prevnar 13) 2016-07-12 00:00:00 Completed [facility] [place] Influenza High Dose 2016-07-12 00:00:00 Completed [facility] Pneumococcal Polysaccharide, PPSV23 (PNEUMOVAX) 2016-07-12 00:00:00 Completed [facility] Pneumococcal 13 Conjugate, PCV13 (Prevnar 13) 2016-07-12 00:00:00 Completed [facility] Influenza High Dose 2016-07-12 00:00:00 Completed [facility] Pneumococcal Polysaccharide, PPSV23 (PNEUMOVAX) 2016-07-12 00:00:00 Completed [facility] Pneumococcal 13 Conjugate, PCV13 (Prevnar 13) 2016-07-12 00:00:00 Completed [facility] [place] Influenza High Dose 2016-07-12 00:00:00 Completed [facility] Pneumococcal Polysaccharide, PPSV23 (PNEUMOVAX) 2016-07-12 00:00:00 Completed [facility] [place] Pneumococcal 13 Conjugate, PCV13 (Prevnar 13) 2016-07-12 00:00:00 Completed [facility] [place] Influenza High Dose 2016-07-12 00:00:00 Completed [facility] Pneumococcal Polysaccharide, PPSV23 (PNEUMOVAX) 2016-07-12 00:00:00 Completed [facility] Pneumococcal 13 Conjugate, PCV13 (Prevnar 13) 2016-07-12 00:00:00 Completed [facility] [place] Influenza High Dose 2016-07-12 00:00:00 Completed [facility] Pneumococcal Polysaccharide, PPSV23 (PNEUMOVAX) 2016-07-12 00:00:00 Completed [facility] Pneumococcal 13 Conjugate, PCV13 (Prevnar 13) 2016-07-12 00:00:00 Completed [facility] Influenza High Dose 2016-07-12 00:00:00 Completed [facility] Pneumococcal Polysaccharide, PPSV23 (PNEUMOVAX) 2016-07-12 00:00:00 Completed [facility] Pneumococcal 13 Conjugate, PCV13 (Prevnar 13) 2016-07-12 00:00:00 Completed [facility] [place] Influenza High Dose 2016-07-12 00:00:00 Completed [facility] Pneumococcal Polysaccharide, PPSV23 (PNEUMOVAX) 2016-07-12 00:00:00 Completed [facility] [place] Pneumococcal 13 Conjugate, PCV13 (Prevnar 13) 2016-07-12 00:00:00 Completed [facility] [place] Influenza High Dose 2016-07-12 00:00:00 Completed [facility] Pneumococcal Polysaccharide, PPSV23 (PNEUMOVAX) 2016-07-12 00:00:00 Completed [facility] Pneumococcal 13 Conjugate, PCV13 (Prevnar 13) 2016-07-12 00:00:00 Completed [facility] [place] Influenza High Dose 2016-07-12 00:00:00 Completed [facility] Pneumococcal Polysaccharide, PPSV23 (PNEUMOVAX) 2016-07-12 00:00:00 Completed [facility] [place] Pneumococcal 13 Conjugate, PCV13 (Prevnar 13) 2016-07-12 00:00:00 Completed [facility] [place] Influenza High Dose 2016-07-12 00:00:00 Completed [facility] Pneumococcal Polysaccharide, PPSV23 (PNEUMOVAX) 2016-07-12 00:00:00 Completed [facility] [place] Pneumococcal 13 Conjugate, PCV13 (Prevnar 13) 2016-07-12 00:00:00 Completed [facility] [place] Influenza High Dose 2016-07-12 00:00:00 Completed [facility] Pneumococcal Polysaccharide, PPSV23 (PNEUMOVAX) 2016-07-12 00:00:00 Completed [facility] Pneumococcal 13 Conjugate, PCV13 (Prevnar 13) 2016-07-12 00:00:00 Completed [facility] [place] Influenza High Dose 2016-07-12 00:00:00 Completed [facility] Pneumococcal Polysaccharide, PPSV23 (PNEUMOVAX) 2016-07-12 00:00:00 Completed [facility] [place] Pneumococcal 13 Conjugate, PCV13 (Prevnar 13) 2016-07-12 00:00:00 Completed [facility] Influenza High Dose 2016-07-12 00:00:00 Completed [facility] Pneumococcal Polysaccharide, PPSV23 (PNEUMOVAX) 2016-07-12 00:00:00 Completed [facility] [place] Pneumococcal 13 Conjugate, PCV13 (Prevnar 13) 2016-07-12 00:00:00 Completed [facility] [place] Influenza High Dose 2016-07-12 00:00:00 Completed [facility] Pneumococcal Polysaccharide, PPSV23 (PNEUMOVAX) 2016-07-12 00:00:00 Completed [facility] [place] Pneumococcal 13 Conjugate, PCV13 (Prevnar 13) 2016-07-12 00:00:00 Completed [facility] [place] Influenza High Dose 2016-07-12 00:00:00 Completed [facility] [place] Pneumococcal Polysaccharide, PPSV23 (PNEUMOVAX) 2016-07-12 00:00:00 Completed [facility] [place] Pneumococcal 13 Conjugate, PCV13 (Prevnar 13) 2016-07-12 00:00:00 Completed [facility] [place] Influenza High Dose 2016-07-12 00:00:00 Completed [facility] Pneumococcal Polysaccharide, PPSV23 (PNEUMOVAX) 2016-07-12 00:00:00 Completed [facility] [place] Pneumococcal 13 Conjugate, PCV13 (Prevnar 13) 2016-07-12 00:00:00 Completed [facility] [place] Influenza High Dose 2016-07-12 00:00:00 Completed [facility] Pneumococcal Polysaccharide, PPSV23 (PNEUMOVAX) 2016-07-12 00:00:00 Completed [facility] [place] Pneumococcal 13 Conjugate, PCV13 (Prevnar 13) 2016-07-12 00:00:00 Completed [facility] [place] Influenza High Dose 2016-07-12 00:00:00 Completed [facility] Pneumococcal Polysaccharide, PPSV23 (PNEUMOVAX) 2016-07-12 00:00:00 Completed [facility] [place] Pneumococcal 13 Conjugate, PCV13 (Prevnar 13) 2016-07-12 00:00:00 Completed [facility] [place] Influenza High Dose 2016-07-12 00:00:00 Completed [facility] [place] Pneumococcal Polysaccharide, PPSV23 (PNEUMOVAX) 2016-07-12 00:00:00 Completed [facility] [place] Pneumococcal 13 Conjugate, PCV13 (Prevnar 13) 2016-07-12 00:00:00 Completed [facility] [place] Influenza High Dose 2016-07-12 00:00:00 Completed [facility] Pneumococcal Polysaccharide, PPSV23 (PNEUMOVAX) 2016-07-12 00:00:00 Completed [facility] [place] Pneumococcal 13 Conjugate, PCV13 (Prevnar 13) 2016-07-12 00:00:00 Completed [facility] [place] Influenza High Dose 2016-07-12 00:00:00 Completed [facility] [place] Pneumococcal Polysaccharide, PPSV23 (PNEUMOVAX) 2016-07-12 00:00:00 Completed [facility] [place] Pneumococcal 13 Conjugate, PCV13 (Prevnar 13) 2016-07-12 00:00:00 Completed [facility] [place] Influenza High Dose 2016-07-12 00:00:00 Completed [facility] Pneumococcal Polysaccharide, PPSV23 (PNEUMOVAX) 2016-07-12 00:00:00 Completed [facility] [place] Pneumococcal 13 Conjugate, PCV13 (Prevnar 13) 2016-07-12 00:00:00 Completed [facility] [place] Influenza High Dose 2016-07-12 00:00:00 Completed [facility] Pneumococcal Polysaccharide, PPSV23 (PNEUMOVAX) 2016-07-12 00:00:00 Completed [facility] [place] Pneumococcal 13 Conjugate, PCV13 (Prevnar 13) 2016-07-12 00:00:00 Completed [facility] [place] Influenza High Dose 2016-07-12 00:00:00 Completed [facility] Pneumococcal Polysaccharide, PPSV23 (PNEUMOVAX) 2016-07-12 00:00:00 Completed [facility] [place] Pneumococcal 13 Conjugate, PCV13 (Prevnar 13) 2016-07-12 00:00:00 Completed [facility] [place] Influenza High Dose 2016-07-12 00:00:00 Completed [facility] Pneumococcal Polysaccharide, PPSV23 (PNEUMOVAX) 2016-07-12 00:00:00 Completed [facility] [place] Pneumococcal 13 Conjugate, PCV13 (Prevnar 13) 2016-07-12 00:00:00 Completed [facility] [place] Influenza High Dose 2016-07-12 00:00:00 Completed [facility] Pneumococcal Polysaccharide, PPSV23 (PNEUMOVAX) 2016-07-12 00:00:00 Completed [facility] [place] Pneumococcal 13 Conjugate, PCV13 (Prevnar 13) 2016-07-12 00:00:00 Completed [facility] [place] Influenza High Dose 2016-07-12 00:00:00 Completed [facility] Pneumococcal Polysaccharide, PPSV23 (PNEUMOVAX) 2016-07-12 00:00:00 Completed [facility] [place] Pneumococcal 13 Conjugate, PCV13 (Prevnar 13) 2016-07-12 00:00:00 Completed [facility] [place] Influenza High Dose 2016-07-12 00:00:00 Completed [facility] Pneumococcal Polysaccharide, PPSV23 (PNEUMOVAX) 2016-07-12 00:00:00 Completed [facility] [place] Pneumococcal 13 Conjugate, PCV13 (Prevnar 13) 2016-07-12 00:00:00 Completed [facility] [place] Influenza High Dose 2016-07-12 00:00:00 Completed [facility] Pneumococcal Polysaccharide, PPSV23 (PNEUMOVAX) 2016-07-12 00:00:00 Completed [facility] [place] Pneumococcal 13 Conjugate, PCV13 (Prevnar 13) 2016-07-12 00:00:00 Completed [facility] [place] Influenza High Dose 2016-07-12 00:00:00 Completed [facility] Pneumococcal Polysaccharide, PPSV23 (PNEUMOVAX) 2016-07-12 00:00:00 Completed [facility] [place] Pneumococcal 13 Conjugate, PCV13 (Prevnar 13) 2016-07-12 00:00:00 Completed [facility] [place] Influenza High Dose 2016-07-12 00:00:00 Completed [facility] Pneumococcal Polysaccharide, PPSV23 (PNEUMOVAX) 2016-07-12 00:00:00 Completed [facility] [place] Pneumococcal 13 Conjugate, PCV13 (Prevnar 13) 2016-07-12 00:00:00 Completed [facility] [place] Influenza High Dose 2016-07-12 00:00:00 Completed [facility] [place] Pneumococcal Polysaccharide, PPSV23 (PNEUMOVAX) 2016-07-12 00:00:00 Completed [facility] [place] Pneumococcal 13 Conjugate, PCV13 (Prevnar 13) 2016-07-12 00:00:00 Completed [facility] [place] Influenza High Dose 2016-07-12 00:00:00 Completed [facility] Pneumococcal Polysaccharide, PPSV23 (PNEUMOVAX) 2016-07-12 00:00:00 Completed [facility] [place] Pneumococcal 13 Conjugate, PCV13 (Prevnar 13) 2016-07-12 00:00:00 Completed [facility] [place] Influenza High Dose 2016-07-12 00:00:00 Completed [facility] [place] Pneumococcal Polysaccharide, PPSV23 (PNEUMOVAX) 2016-07-12 00:00:00 Completed [facility] [place] Pneumococcal 13 Conjugate, PCV13 (Prevnar 13) 2016-07-12 00:00:00 Completed [facility] [place] Influenza High Dose 2016-07-12 00:00:00 Completed [facility] Pneumococcal Polysaccharide, PPSV23 (PNEUMOVAX) 2016-07-12 00:00:00 Completed [facility] [place] Pneumococcal 13 Conjugate, PCV13 (Prevnar 13) 2016-07-12 00:00:00 Completed [facility] [place] Influenza High Dose 2016-07-12 00:00:00 Completed [facility] Pneumococcal Polysaccharide, PPSV23 (PNEUMOVAX) 2016-07-12 00:00:00 Completed [facility] [place] Pneumococcal 13 Conjugate, PCV13 (Prevnar 13) 2016-07-12 00:00:00 Completed [facility] [place] Influenza High Dose 2016-07-12 00:00:00 Completed [facility] Pneumococcal Polysaccharide, PPSV23 (PNEUMOVAX) 2016-07-12 00:00:00 Completed [facility] [place] Pneumococcal 13 Conjugate, PCV13 (Prevnar 13) 2016-07-12 00:00:00 Completed [facility] [place] Influenza High Dose 2016-07-12 00:00:00 Completed [facility] Pneumococcal Polysaccharide, PPSV23 (PNEUMOVAX) 2016-07-12 00:00:00 Completed [facility] [place] Pneumococcal 13 Conjugate, PCV13 (Prevnar 13) 2016-07-12 00:00:00 Completed [facility] [place] Influenza High Dose 2016-07-12 00:00:00 Completed [facility] Pneumococcal Polysaccharide, PPSV23 (PNEUMOVAX) 2016-07-12 00:00:00 Completed [facility] [place] Pneumococcal 13 Conjugate, PCV13 (Prevnar 13) 2016-07-12 00:00:00 Completed [facility] [place] Influenza High Dose 2016-07-12 00:00:00 Completed [facility] Pneumococcal Polysaccharide, PPSV23 (PNEUMOVAX) 2016-07-12 00:00:00 Completed [facility] [place] Pneumococcal 13 Conjugate, PCV13 (Prevnar 13) 2016-07-12 00:00:00 Completed [facility] [place] Influenza High Dose 2016-07-12 00:00:00 Completed [facility] Pneumococcal Polysaccharide, PPSV23 (PNEUMOVAX) 2016-07-12 00:00:00 Completed [facility] [place] Pneumococcal 13 Conjugate, PCV13 (Prevnar 13) 2016-07-12 00:00:00 Completed [facility] Influenza High Dose 2016-07-12 00:00:00 Completed [facility] Pneumococcal Polysaccharide, PPSV23 (PNEUMOVAX) 2016-07-12 00:00:00 Completed [facility] [place] Pneumococcal 13 Conjugate, PCV13 (Prevnar 13) 2016-07-12 00:00:00 Completed [facility] Influenza High Dose 2016-07-12 00:00:00 Completed [facility] Pneumococcal Polysaccharide, PPSV23 (PNEUMOVAX) 2016-07-12 00:00:00 Completed [facility] [place] Pneumococcal 13 Conjugate, PCV13 (Prevnar 13) 2016-07-12 00:00:00 Completed [facility] Influenza High Dose 2016-07-12 00:00:00 Completed [facility] Pneumococcal Polysaccharide, PPSV23 (PNEUMOVAX) 2016-07-12 00:00:00 Completed [facility] [place] Pneumococcal 13 Conjugate, PCV13 (Prevnar 13) 2016-07-12 00:00:00 Completed [facility] [place] Influenza High Dose 2016-07-12 00:00:00 Completed [facility] Pneumococcal Polysaccharide, PPSV23 (PNEUMOVAX) 2016-07-12 00:00:00 Completed [facility] [place] Pneumococcal 13 Conjugate, PCV13 (Prevnar 13) 2016-07-12 00:00:00 Completed [facility] [place] Influenza High Dose 2016-07-12 00:00:00 Completed [facility] Pneumococcal Polysaccharide, PPSV23 (PNEUMOVAX) 2016-07-12 00:00:00 Completed [facility] [place] Pneumococcal 13 Conjugate, PCV13 (Prevnar 13) 2016-07-12 00:00:00 Completed [facility] [place] Influenza High Dose 2016-07-12 00:00:00 Completed [facility] Pneumococcal Polysaccharide, PPSV23 (PNEUMOVAX) 2016-07-12 00:00:00 Completed [facility] [place] Pneumococcal 13 Conjugate, PCV13 (Prevnar 13) 2016-07-12 00:00:00 Completed [facility] Influenza High Dose 2016-07-12 00:00:00 Completed [facility] Pneumococcal Polysaccharide, PPSV23 (PNEUMOVAX) 2016-07-12 00:00:00 Completed [facility] Pneumococcal 13 Conjugate, PCV13 (Prevnar 13) 2016-07-12 00:00:00 Completed [facility] Influenza High Dose 2016-07-12 00:00:00 Completed [facility] Pneumococcal Polysaccharide, PPSV23 (PNEUMOVAX) 2016-07-12 00:00:00 Completed [facility] Pneumococcal 13 Conjugate, PCV13 (Prevnar 13) 2016-07-12 00:00:00 Completed [facility] Influenza High Dose 2016-07-12 00:00:00 Completed [facility] Pneumococcal Polysaccharide, PPSV23 (PNEUMOVAX) 2016-07-12 00:00:00 Completed [facility] Pneumococcal 13 Conjugate, PCV13 (Prevnar 13) 2016-07-12 00:00:00 Completed [facility] Influenza High Dose 2016-07-12 00:00:00 Completed [facility] Pneumococcal Polysaccharide, PPSV23 (PNEUMOVAX) 2016-07-12 00:00:00 Completed [facility] Pneumococcal 13 Conjugate, PCV13 (Prevnar 13) 2016-07-12 00:00:00 Completed [facility] Influenza High Dose 2016-07-12 00:00:00 Completed [facility] Pneumococcal Polysaccharide, PPSV23 (PNEUMOVAX) 2016-07-12 00:00:00 Completed [facility] Pneumococcal 13 Conjugate, PCV13 (Prevnar 13) 2016-07-12 00:00:00 Completed [facility] Influenza High Dose 2016-07-12 00:00:00 Completed [facility] Pneumococcal Polysaccharide, PPSV23 (PNEUMOVAX) 2016-07-12 00:00:00 Completed [facility] Pneumococcal 13 Conjugate, PCV13 (Prevnar 13) 2016-07-12 00:00:00 Completed [facility] Influenza High Dose 2016-07-12 00:00:00 Completed [facility] Pneumococcal Polysaccharide, PPSV23 (PNEUMOVAX) 2016-07-12 00:00:00 Completed [facility] Pneumococcal 13 Conjugate, PCV13 (Prevnar 13) 2016-07-12 00:00:00 Completed [facility] Influenza High Dose 2016-07-12 00:00:00 Completed [facility] Pneumococcal Polysaccharide, PPSV23 (PNEUMOVAX) 2016-07-12 00:00:00 Completed [facility] Pneumococcal 13 Conjugate, PCV13 (Prevnar 13) 2016-07-12 00:00:00 Completed [facility] Influenza High Dose 2016-07-12 00:00:00 Completed [facility] Pneumococcal Polysaccharide, PPSV23 (PNEUMOVAX) 2016-07-12 00:00:00 Completed [facility] Pneumococcal 13 Conjugate, PCV13 (Prevnar 13) 2016-07-12 00:00:00 Completed [facility] Influenza High Dose 2016-07-12 00:00:00 Completed [facility] Pneumococcal Polysaccharide, PPSV23 (PNEUMOVAX) 2016-07-12 00:00:00 Completed [facility] Pneumococcal 13 Conjugate, PCV13 (Prevnar 13) 2016-07-12 00:00:00 Completed [facility] Influenza High Dose 2016-07-12 00:00:00 Completed [facility] Pneumococcal Polysaccharide, PPSV23 (PNEUMOVAX) 2016-07-12 00:00:00 Completed [facility] Pneumococcal 13 Conjugate, PCV13 (Prevnar 13) 2016-07-12 00:00:00 Completed [facility] Influenza High Dose 2016-07-12 00:00:00 Completed [facility] Pneumococcal Polysaccharide, PPSV23 (PNEUMOVAX) 2016-07-12 00:00:00 Completed [facility] Pneumococcal 13 Conjugate, PCV13 (Prevnar 13) 2016-07-12 00:00:00 Completed [facility] Influenza High Dose 2016-07-12 00:00:00 Completed [facility] Pneumococcal Polysaccharide, PPSV23 (PNEUMOVAX) 2016-07-12 00:00:00 Completed [facility] Pneumococcal 13 Conjugate, PCV13 (Prevnar 13) 2016-07-12 00:00:00 Completed [facility] Influenza High Dose 2016-07-12 00:00:00 Completed [facility] Pneumococcal Polysaccharide, PPSV23 (PNEUMOVAX) 2016-07-12 00:00:00 Completed [facility] Pneumococcal 13 Conjugate, PCV13 (Prevnar 13) 2016-07-12 00:00:00 Completed [facility] Influenza High Dose 2016-07-12 00:00:00 Completed [facility] Pneumococcal Polysaccharide, PPSV23 (PNEUMOVAX) 2016-07-12 00:00:00 Completed [facility] Pneumococcal 13 Conjugate, PCV13 (Prevnar 13) 2016-07-12 00:00:00 Completed [facility] Influenza High Dose 2016-07-12 00:00:00 Completed [facility] Pneumococcal Polysaccharide, PPSV23 (PNEUMOVAX) 2016-07-12 00:00:00 Completed [facility] Pneumococcal 13 Conjugate, PCV13 (Prevnar 13) 2016-07-12 00:00:00 Completed [facility] Influenza High Dose 2016-07-12 00:00:00 Completed [facility] Pneumococcal Polysaccharide, PPSV23 (PNEUMOVAX) 2016-07-12 00:00:00 Completed [facility] Pneumococcal 13 Conjugate, PCV13 (Prevnar 13) 2016-07-12 00:00:00 Completed [facility] Influenza High Dose 2016-07-12 00:00:00 Completed [facility] Pneumococcal Polysaccharide, PPSV23 (PNEUMOVAX) 2016-07-12 00:00:00 Completed [facility] Pneumococcal 13 Conjugate, PCV13 (Prevnar 13) 2016-07-12 00:00:00 Completed [facility] Influenza High Dose 2016-07-12 00:00:00 Completed [facility] Pneumococcal Polysaccharide, PPSV23 (PNEUMOVAX) 2016-07-12 00:00:00 Completed [facility] Pneumococcal 13 Conjugate, PCV13 (Prevnar 13) 2016-07-12 00:00:00 Completed [facility] Influenza High Dose 2016-07-12 00:00:00 Completed [facility] Pneumococcal Polysaccharide, PPSV23 (PNEUMOVAX) 2016-07-12 00:00:00 Completed [facility] Pneumococcal 13 Conjugate, PCV13 (Prevnar 13) 2016-07-12 00:00:00 Completed [facility] Influenza High Dose 2016-07-12 00:00:00 Completed [facility] Pneumococcal Polysaccharide, PPSV23 (PNEUMOVAX) 2016-07-12 00:00:00 Completed [facility] Pneumococcal 13 Conjugate, PCV13 (Prevnar 13) 2016-07-12 00:00:00 Completed [facility] Influenza High Dose 2016-07-12 00:00:00 Completed [facility] Pneumococcal Polysaccharide, PPSV23 (PNEUMOVAX) 2016-07-12 00:00:00 Completed [facility] Pneumococcal 13 Conjugate, PCV13 (Prevnar 13) 2016-07-12 00:00:00 Completed [facility] Influenza High Dose 2016-07-12 00:00:00 Completed [facility] Pneumococcal Polysaccharide, PPSV23 (PNEUMOVAX) 2016-07-12 00:00:00 Completed [facility] Pneumococcal 13 Conjugate, PCV13 (Prevnar 13) 2016-07-12 00:00:00 Completed [facility] Influenza High Dose 2016-07-12 00:00:00 Completed [facility] Pneumococcal Polysaccharide, PPSV23 (PNEUMOVAX) 2016-07-12 00:00:00 Completed [facility] Pneumococcal 13 Conjugate, PCV13 (Prevnar 13) 2016-07-12 00:00:00 Completed [facility] Influenza High Dose 2016-07-12 00:00:00 Completed [facility] Pneumococcal Polysaccharide, PPSV23 (PNEUMOVAX) 2016-07-12 00:00:00 Completed [facility] Pneumococcal 13 Conjugate, PCV13 (Prevnar 13) 2016-07-12 00:00:00 Completed [facility] Influenza High Dose 2016-07-12 00:00:00 Completed [facility] Pneumococcal Polysaccharide, PPSV23 (PNEUMOVAX) 2016-07-12 00:00:00 Completed [facility] Pneumococcal 13 Conjugate, PCV13 (Prevnar 13) 2016-07-12 00:00:00 Completed [facility] Influenza High Dose 2016-07-12 00:00:00 Completed [facility] Pneumococcal Polysaccharide, PPSV23 (PNEUMOVAX) 2016-07-12 00:00:00 Completed [facility] Pneumococcal 13 Conjugate, PCV13 (Prevnar 13) 2016-07-12 00:00:00 Completed [facility] Influenza High Dose 2016-07-12 00:00:00 Completed [facility] Pneumococcal Polysaccharide, PPSV23 (PNEUMOVAX) 2016-07-12 00:00:00 Completed [facility] Pneumococcal 13 Conjugate, PCV13 (Prevnar 13) 2016-07-12 00:00:00 Completed [facility] Influenza High Dose 2016-07-12 00:00:00 Completed [facility] Pneumococcal Polysaccharide, PPSV23 (PNEUMOVAX) 2016-07-12 00:00:00 Completed [facility] Pneumococcal 13 Conjugate, PCV13 (Prevnar 13) 2016-07-12 00:00:00 Completed [facility] Influenza High Dose 2016-07-12 00:00:00 Completed [facility] Pneumococcal Polysaccharide, PPSV23 (PNEUMOVAX) 2016-07-12 00:00:00 Completed [facility] Pneumococcal 13 Conjugate, PCV13 (Prevnar 13) 2016-07-12 00:00:00 Completed [facility] Influenza High Dose 2016-07-12 00:00:00 Completed [facility] Pneumococcal Polysaccharide, PPSV23 (PNEUMOVAX) 2016-07-12 00:00:00 Completed [facility] Pneumococcal 13 Conjugate, PCV13 (Prevnar 13) 2016-07-12 00:00:00 Completed [facility] Influenza High Dose 2016-07-12 00:00:00 Completed [facility] Pneumococcal Polysaccharide, PPSV23 (PNEUMOVAX) 2016-07-12 00:00:00 Completed [facility] Pneumococcal 13 Conjugate, PCV13 (Prevnar 13) 2016-07-12 00:00:00 Completed [facility] Influenza High Dose 2016-07-12 00:00:00 Completed [facility] Pneumococcal Polysaccharide, PPSV23 (PNEUMOVAX) 2016-07-12 00:00:00 Completed [facility] Pneumococcal 13 Conjugate, PCV13 (Prevnar 13) 2016-07-12 00:00:00 Completed [facility] Influenza High Dose 2016-07-12 00:00:00 Completed [facility] Pneumococcal Polysaccharide, PPSV23 (PNEUMOVAX) 2016-07-12 00:00:00 Completed [facility] Pneumococcal 13 Conjugate, PCV13 (Prevnar 13) 2016-07-12 00:00:00 Completed [facility] Influenza High Dose 2016-07-12 00:00:00 Completed [facility] Pneumococcal Polysaccharide, PPSV23 (PNEUMOVAX) 2016-07-12 00:00:00 Completed [facility] Pneumococcal 13 Conjugate, PCV13 (Prevnar 13) 2016-07-12 00:00:00 Completed [facility] Influenza High Dose 2016-07-12 00:00:00 Completed [facility] Pneumococcal Polysaccharide, PPSV23 (PNEUMOVAX) 2016-07-12 00:00:00 Completed [facility] Pneumococcal 13 Conjugate, PCV13 (Prevnar 13) 2016-07-12 00:00:00 Completed [facility] Influenza High Dose 2016-07-12 00:00:00 Completed [facility] Pneumococcal Polysaccharide, PPSV23 (PNEUMOVAX) 2016-07-12 00:00:00 Completed [facility] Pneumococcal 13 Conjugate, PCV13 (Prevnar 13) 2016-07-12 00:00:00 Completed [facility] Influenza High Dose 2016-07-12 00:00:00 Completed [facility] Pneumococcal Polysaccharide, PPSV23 (PNEUMOVAX) 2016-07-12 00:00:00 Completed [facility] Pneumococcal 13 Conjugate, PCV13 (Prevnar 13) 2016-07-12 00:00:00 Completed [facility] Influenza High Dose 2016-07-12 00:00:00 Completed [facility] Pneumococcal Polysaccharide, PPSV23 (PNEUMOVAX) 2016-07-12 00:00:00 Completed [facility] Pneumococcal 13 Conjugate, PCV13 (Prevnar 13) 2016-07-12 00:00:00 Completed [facility] Influenza High Dose 2016-07-12 00:00:00 Completed [facility] Pneumococcal Polysaccharide, PPSV23 (PNEUMOVAX) 2016-07-12 00:00:00 Completed [facility] Pneumococcal 13 Conjugate, PCV13 (Prevnar 13) 2016-07-12 00:00:00 Completed [facility] Influenza High Dose 2016-07-12 00:00:00 Completed [facility] Pneumococcal Polysaccharide, PPSV23 (PNEUMOVAX) 2016-07-12 00:00:00 Completed [facility] Pneumococcal 13 Conjugate, PCV13 (Prevnar 13) 2016-07-12 00:00:00 Completed [facility] Influenza High Dose 2016-07-12 00:00:00 Completed [facility] Pneumococcal Polysaccharide, PPSV23 (PNEUMOVAX) 2016-07-12 00:00:00 Completed [facility] Pneumococcal 13 Conjugate, PCV13 (Prevnar 13) 2016-07-12 00:00:00 Completed [facility] Influenza High Dose 2016-07-12 00:00:00 Completed [facility] Pneumococcal Polysaccharide, PPSV23 (PNEUMOVAX) 2016-07-12 00:00:00 Completed [facility] Pneumococcal 13 Conjugate, PCV13 (Prevnar 13) 2016-07-12 00:00:00 Completed [facility] Influenza, High-Dose, Trivalent, PF (FLUZONE) 2016-07-12 00:00:00 Completed [facility] Pneumococcal Polysaccharide, PPSV23 (PNEUMOVAX) 2016-07-12 00:00:00 Completed Pneumococcal Unspecified 2016-07-12 00:00:00 Completed Pneumococcal 13 Conjugate, PCV13 (Prevnar 13) 2016-07-12 00:00:00 Completed [facility] Influenza, High-Dose, Trivalent, PF (FLUZONE) 2016-07-12 00:00:00 Completed Pneumococcal Polysaccharide, PPSV23 (PNEUMOVAX) 2016-07-12 00:00:00 Completed Pneum[facility] Unspecified 2016-07-12 00:00:00 Completed Pneum[facility] 13 Conjugate, PCV13 (Prevnar 13) 2016-07-12 00:00:00 Completed [facility] Influenza, High-Dose, Trivalent, PF (FLUZONE) 2016-07-12 00:00:00 Completed Pneumococcal Polysaccharide, PPSV23 (PNEUMOVAX) 2016-07-12 00:00:00 Completed [facility] Pneumococcal Unspecified 2016-07-12 00:00:00 Completed Pneumococcal Polysaccharide, PPSV23 (PNEUMOVAX) 2016-07-11 00:00:00 Completed [facility] Pneumococcal Polysaccharide, PPSV23 (PNEUMOVAX) 2016-07-11 00:00:00 Completed [facility] Pneumococcal Polysaccharide, PPSV23 (PNEUMOVAX) 2016-07-11 00:00:00 Completed [facility] Pneumococcal Polysaccharide, PPSV23 (PNEUMOVAX) 2016-07-11 00:00:00 Completed [facility] Pneumococcal Polysaccharide, PPSV23 (PNEUMOVAX) 2016-07-11 00:00:00 Completed [facility] Pneumococcal Polysaccharide, PPSV23 (PNEUMOVAX) 2016-07-11 00:00:00 Completed [facility] Pneumococcal Polysaccharide, PPSV23 (PNEUMOVAX) 2016-07-11 00:00:00 Completed [facility] Pneumococcal Polysaccharide, PPSV23 (PNEUMOVAX) 2016-07-11 00:00:00 Completed [facility] Pneumococcal Polysaccharide, PPSV23 (PNEUMOVAX) 2016-07-11 00:00:00 Completed [facility] Pneumococcal Polysaccharide, PPSV23 (PNEUMOVAX) 2016-07-11 00:00:00 Completed [facility] Pneumococcal Polysaccharide, PPSV23 (PNEUMOVAX) 2016-07-11 00:00:00 Completed [facility] Pneumococcal Polysaccharide, PPSV23 (PNEUMOVAX) 2016-07-11 00:00:00 Completed [facility] Pneumococcal Polysaccharide, PPSV23 (PNEUMOVAX) 2016-07-11 00:00:00 Completed [facility] Pneumococcal Polysaccharide, PPSV23 (PNEUMOVAX) 2016-07-11 00:00:00 Completed [facility] Pneumococcal Polysaccharide, PPSV23 (PNEUMOVAX) 2016-07-11 00:00:00 Completed [facility] Pneumococcal Polysaccharide, PPSV23 (PNEUMOVAX) 2016-07-11 00:00:00 Completed [facility] Pneumococcal Polysaccharide, PPSV23 (PNEUMOVAX) 2016-07-11 00:00:00 Completed [facility] Pneumococcal Polysaccharide, PPSV23 (PNEUMOVAX) 2016-07-11 00:00:00 Completed [facility] Pneumococcal Polysaccharide, PPSV23 (PNEUMOVAX) 2016-07-11 00:00:00 Completed [facility] Pneumococcal Polysaccharide, PPSV23 (PNEUMOVAX) 2016-07-11 00:00:00 Completed [facility] Pneumococcal Polysaccharide, PPSV23 (PNEUMOVAX) 2016-07-11 00:00:00 Completed [facility] Pneumococcal Polysaccharide, PPSV23 (PNEUMOVAX) 2016-07-11 00:00:00 Completed [facility] Pneumococcal Polysaccharide, PPSV23 (PNEUMOVAX) 2016-07-11 00:00:00 Completed [facility] Pneumococcal Polysaccharide, PPSV23 (PNEUMOVAX) 2016-07-11 00:00:00 Completed [facility] Pneumococcal Polysaccharide, PPSV23 (PNEUMOVAX) 2016-07-11 00:00:00 Completed [facility] Pneumococcal Polysaccharide, PPSV23 (PNEUMOVAX) 2016-07-11 00:00:00 Completed [facility] Pneumococcal Polysaccharide, PPSV23 (PNEUMOVAX) 2016-07-11 00:00:00 Completed [facility] Pneumococcal Polysaccharide, PPSV23 (PNEUMOVAX) 2016-07-11 00:00:00 Completed [facility] Pneumococcal Polysaccharide, PPSV23 (PNEUMOVAX) 2016-07-11 00:00:00 Completed [facility] Pneumococcal Polysaccharide, PPSV23 (PNEUMOVAX) 2016-07-11 00:00:00 Completed [facility] Pneumococcal Polysaccharide, PPSV23 (PNEUMOVAX) 2016-07-11 00:00:00 Completed [facility] Pneumococcal Polysaccharide, PPSV23 (PNEUMOVAX) 2016-07-11 00:00:00 Completed [facility] Pneumococcal Polysaccharide, PPSV23 (PNEUMOVAX) 2016-07-11 00:00:00 Completed [facility] Pneumococcal Polysaccharide, PPSV23 (PNEUMOVAX) 2016-07-11 00:00:00 Completed [facility] Pneumococcal Polysaccharide, PPSV23 (PNEUMOVAX) 2016-07-11 00:00:00 Completed [facility] Pneumococcal Polysaccharide, PPSV23 (PNEUMOVAX) 2016-07-11 00:00:00 Completed [facility] Pneumococcal Polysaccharide, PPSV23 (PNEUMOVAX) 2016-07-11 00:00:00 Completed [facility] Pneumococcal Polysaccharide, PPSV23 (PNEUMOVAX) 2016-07-11 00:00:00 Completed [facility] Pneumococcal Polysaccharide, PPSV23 (PNEUMOVAX) 2016-07-11 00:00:00 Completed [facility] Pneumococcal Polysaccharide, PPSV23 (PNEUMOVAX) 2016-07-11 00:00:00 Completed [facility] Pneumococcal Polysaccharide, PPSV23 (PNEUMOVAX) 2016-07-11 00:00:00 Completed [facility] Pneumococcal Polysaccharide, PPSV23 (PNEUMOVAX) 2016-07-11 00:00:00 Completed [facility] Pneumococcal Polysaccharide, PPSV23 (PNEUMOVAX) 2016-07-11 00:00:00 Completed [facility] Pneumococcal Polysaccharide, PPSV23 (PNEUMOVAX) 2016-07-11 00:00:00 Completed [facility] Pneumococcal Polysaccharide, PPSV23 (PNEUMOVAX) 2016-07-11 00:00:00 Completed [facility] Pneumococcal Polysaccharide, PPSV23 (PNEUMOVAX) 2016-07-11 00:00:00 Completed [facility] Pneumococcal Polysaccharide, PPSV23 (PNEUMOVAX) 2016-07-11 00:00:00 Completed [facility] Pneumococcal Polysaccharide, PPSV23 (PNEUMOVAX) 2016-07-11 00:00:00 Completed [facility] Pneumococcal Polysaccharide, PPSV23 (PNEUMOVAX) 2016-07-11 00:00:00 Completed [facility] Pneumococcal Polysaccharide, PPSV23 (PNEUMOVAX) 2016-07-11 00:00:00 Completed [facility] Pneumococcal Polysaccharide, PPSV23 (PNEUMOVAX) 2016-07-11 00:00:00 Completed [facility] Pneumococcal Polysaccharide, PPSV23 (PNEUMOVAX) 2016-07-11 00:00:00 Completed [facility] Pneumococcal Polysaccharide, PPSV23 (PNEUMOVAX) 2016-07-11 00:00:00 Completed [facility] Pneumococcal Polysaccharide, PPSV23 (PNEUMOVAX) 2016-07-11 00:00:00 Completed [facility] Pneumococcal Polysaccharide, PPSV23 (PNEUMOVAX) 2016-07-11 00:00:00 Completed [facility] Pneumococcal Polysaccharide, PPSV23 (PNEUMOVAX) 2016-07-11 00:00:00 Completed [facility] Pneumococcal Polysaccharide, PPSV23 (PNEUMOVAX) 2016-07-11 00:00:00 Completed [facility] Pneumococcal Polysaccharide, PPSV23 (PNEUMOVAX) 2016-07-11 00:00:00 Completed [facility] Pneumococcal Polysaccharide, PPSV23 (PNEUMOVAX) 2016-07-11 00:00:00 Completed [facility] Pneumococcal Polysaccharide, PPSV23 (PNEUMOVAX) 2016-07-11 00:00:00 Completed [facility] Pneumococcal Polysaccharide, PPSV23 (PNEUMOVAX) 2016-07-11 00:00:00 Completed [facility] Pneumococcal Polysaccharide, PPSV23 (PNEUMOVAX) 2016-07-11 00:00:00 Completed [facility] Pneumococcal Polysaccharide, PPSV23 (PNEUMOVAX) 2016-07-11 00:00:00 Completed [facility] Pneumococcal Polysaccharide, PPSV23 (PNEUMOVAX) 2016-07-11 00:00:00 Completed [facility] Pneumococcal Polysaccharide, PPSV23 (PNEUMOVAX) 2016-07-11 00:00:00 Completed [facility] Pneumococcal Polysaccharide, PPSV23 (PNEUMOVAX) 2016-07-11 00:00:00 Completed [facility] Pneumococcal Polysaccharide, PPSV23 (PNEUMOVAX) 2016-07-11 00:00:00 Completed [facility] Pneumococcal Polysaccharide, PPSV23 (PNEUMOVAX) 2016-07-11 00:00:00 Completed [facility] Pneumococcal Polysaccharide, PPSV23 (PNEUMOVAX) 2016-07-11 00:00:00 Completed [facility] Pneumococcal Polysaccharide, PPSV23 (PNEUMOVAX) 2016-07-11 00:00:00 Completed [facility] Pneumococcal Polysaccharide, PPSV23 (PNEUMOVAX) 2016-07-11 00:00:00 Completed [facility] Pneumococcal Polysaccharide, PPSV23 (PNEUMOVAX) 2016-07-11 00:00:00 Completed [facility] Pneumococcal Polysaccharide, PPSV23 (PNEUMOVAX) 2016-07-11 00:00:00 Completed [facility] Pneumococcal Polysaccharide, PPSV23 (PNEUMOVAX) 2016-07-11 00:00:00 Completed [facility] Pneumococcal Polysaccharide, PPSV23 (PNEUMOVAX) 2016-07-11 00:00:00 Completed [facility] Pneumococcal Polysaccharide, PPSV23 (PNEUMOVAX) 2016-07-11 00:00:00 Completed [facility] Pneumococcal Polysaccharide, PPSV23 (PNEUMOVAX) 2016-07-11 00:00:00 Completed [facility] Pneumococcal Polysaccharide, PPSV23 (PNEUMOVAX) 2016-07-11 00:00:00 Completed [facility] Pneumococcal Polysaccharide, PPSV23 (PNEUMOVAX) 2016-07-11 00:00:00 Completed [facility] Pneumococcal Polysaccharide, PPSV23 (PNEUMOVAX) 2016-07-11 00:00:00 Completed [facility] Pneumococcal Polysaccharide, PPSV23 (PNEUMOVAX) 2016-07-11 00:00:00 Completed [facility] Pneumococcal Polysaccharide, PPSV23 (PNEUMOVAX) 2016-07-11 00:00:00 Completed [facility] Pneumococcal Polysaccharide, PPSV23 (PNEUMOVAX) 2016-07-11 00:00:00 Completed [facility] Pneumococcal Polysaccharide, PPSV23 (PNEUMOVAX) 2016-07-11 00:00:00 Completed [facility] Pneumococcal Polysaccharide, PPSV23 (PNEUMOVAX) 2016-07-11 00:00:00 Completed [facility] Pneumococcal Polysaccharide, PPSV23 (PNEUMOVAX) 2016-07-11 00:00:00 Completed [facility] Pneumococcal Polysaccharide, PPSV23 (PNEUMOVAX) 2016-07-11 00:00:00 Completed [facility] Pneumococcal Polysaccharide, PPSV23 (PNEUMOVAX) 2016-07-11 00:00:00 Completed [facility] Pneumococcal Polysaccharide, PPSV23 (PNEUMOVAX) 2016-07-11 00:00:00 Completed [facility] Pneumococcal Polysaccharide, PPSV23 (PNEUMOVAX) 2016-07-11 00:00:00 Completed [facility] Pneumococcal Polysaccharide, PPSV23 (PNEUMOVAX) 2016-07-11 00:00:00 Completed [facility] Pneumococcal Polysaccharide, PPSV23 (PNEUMOVAX) 2016-07-11 00:00:00 Completed [facility] Pneumococcal Polysaccharide, PPSV23 (PNEUMOVAX) 2016-07-11 00:00:00 Completed [facility] Pneumococcal Polysaccharide, PPSV23 (PNEUMOVAX) 2016-07-11 00:00:00 Completed [facility] Pneumococcal Polysaccharide, PPSV23 (PNEUMOVAX) 2016-07-11 00:00:00 Completed [facility] Pneumococcal Polysaccharide, PPSV23 (PNEUMOVAX) 2016-07-11 00:00:00 Completed [facility] Pneumococcal Polysaccharide, PPSV23 (PNEUMOVAX) 2016-07-11 00:00:00 Completed [facility] Pneumococcal Polysaccharide, PPSV23 (PNEUMOVAX) 2016-07-11 00:00:00 Completed [facility] Pneumococcal Polysaccharide, PPSV23 (PNEUMOVAX) 2016-07-11 00:00:00 Completed [facility] Pneumococcal Polysaccharide, PPSV23 (PNEUMOVAX) 2016-07-11 00:00:00 Completed [facility] Pneumococcal Polysaccharide, PPSV23 (PNEUMOVAX) 2016-07-11 00:00:00 Completed [facility] Pneumococcal Polysaccharide, PPSV23 (PNEUMOVAX) 2016-07-11 00:00:00 Completed [facility] Pneumococcal Polysaccharide, PPSV23 (PNEUMOVAX) 2016-07-11 00:00:00 Completed [facility] Pneumococcal Polysaccharide, PPSV23 (PNEUMOVAX) 2016-07-11 00:00:00 Completed [facility] Pneumococcal Polysaccharide, PPSV23 (PNEUMOVAX) 2016-07-11 00:00:00 Completed [facility] Pneumococcal Polysaccharide, PPSV23 (PNEUMOVAX) 2016-07-11 00:00:00 Completed [facility] Pneumococcal Polysaccharide, PPSV23 (PNEUMOVAX) 2016-07-11 00:00:00 Completed [facility] Pneumococcal Polysaccharide, PPSV23 (PNEUMOVAX) 2016-07-11 00:00:00 Completed [facility] Pneumococcal Polysaccharide, PPSV23 (PNEUMOVAX) 2016-07-11 00:00:00 Completed [facility] Pneumococcal Polysaccharide, PPSV23 (PNEUMOVAX) 2016-07-11 00:00:00 Completed [facility] Pneumococcal Polysaccharide, PPSV23 (PNEUMOVAX) 2016-07-11 00:00:00 Completed [facility] Pneumococcal Polysaccharide, PPSV23 (PNEUMOVAX) 2016-07-11 00:00:00 Completed [facility] Pneumococcal Polysaccharide, PPSV23 (PNEUMOVAX) 2016-07-11 00:00:00 Completed [facility] Pneumococcal Polysaccharide, PPSV23 (PNEUMOVAX) 2016-07-11 00:00:00 Completed [facility] Pneumococcal Polysaccharide, PPSV23 (PNEUMOVAX) 2016-07-11 00:00:00 Completed [facility] Pneumococcal Polysaccharide, PPSV23 (PNEUMOVAX) 2016-07-11 00:00:00 Completed [facility] Pneumococcal Polysaccharide, PPSV23 (PNEUMOVAX) 2016-07-11 00:00:00 Completed [facility] Pneumococcal Polysaccharide, PPSV23 (PNEUMOVAX) 2016-07-11 00:00:00 Completed [facility] Pneumococcal Polysaccharide, PPSV23 (PNEUMOVAX) 2016-07-11 00:00:00 Completed [facility] Pneumococcal Polysaccharide, PPSV23 (PNEUMOVAX) 2016-07-11 00:00:00 Completed [facility] Pneumococcal Polysaccharide, PPSV23 (PNEUMOVAX) 2016-07-11 00:00:00 Completed [facility] Pneumococcal Polysaccharide, PPSV23 (PNEUMOVAX) 2016-07-11 00:00:00 Completed [facility] Pneumococcal Polysaccharide, PPSV23 (PNEUMOVAX) 2016-07-11 00:00:00 Completed [facility] Pneumococcal Polysaccharide, PPSV23 (PNEUMOVAX) 2016-07-11 00:00:00 Completed [facility] Pneumococcal Polysaccharide, PPSV23 (PNEUMOVAX) 2016-07-11 00:00:00 Completed [facility] Pneumococcal Polysaccharide, PPSV23 (PNEUMOVAX) 2016-07-11 00:00:00 Completed [facility] Pneumococcal Polysaccharide, PPSV23 (PNEUMOVAX) 2016-07-11 00:00:00 Completed Pneumococcal Polysaccharide, PPSV23 (PNEUMOVAX) 2016-07-11 00:00:00 Completed Pneumococcal Polysaccharide, PPSV23 (PNEUMOVAX) 2016-07-11 00:00:00 Completed Pneumococcal Polysaccharide, PPSV23 (PNEUMOVAX) 2011-06-19 00:00:00 Completed [facility] Pneumococcal Polysaccharide, PPSV23 (PNEUMOVAX) 2011-06-19 00:00:00 Completed [facility] Pneumococcal Polysaccharide, PPSV23 (PNEUMOVAX) 2011-06-19 00:00:00 Completed [facility] Pneumococcal Polysaccharide, PPSV23 (PNEUMOVAX) 2011-06-19 00:00:00 Completed [facility] Pneumococcal Polysaccharide, PPSV23 (PNEUMOVAX) 2011-06-19 00:00:00 Completed [facility] Pneumococcal Polysaccharide, PPSV23 (PNEUMOVAX) 2011-06-19 00:00:00 Completed [facility] Pneumococcal Polysaccharide, PPSV23 (PNEUMOVAX) 2011-06-19 00:00:00 Completed [facility] Pneumococcal Polysaccharide, PPSV23 (PNEUMOVAX) 2011-06-19 00:00:00 Completed [facility] Pneumococcal Polysaccharide, PPSV23 (PNEUMOVAX) 2011-06-19 00:00:00 Completed [facility] Pneumococcal Polysaccharide, PPSV23 (PNEUMOVAX) 2011-06-19 00:00:00 Completed [facility] Pneumococcal Polysaccharide, PPSV23 (PNEUMOVAX) 2011-06-19 00:00:00 Completed [facility] Pneumococcal Polysaccharide, PPSV23 (PNEUMOVAX) 2011-06-19 00:00:00 Completed [facility] Pneumococcal Polysaccharide, PPSV23 (PNEUMOVAX) 2011-06-19 00:00:00 Completed [facility] Pneumococcal Polysaccharide, PPSV23 (PNEUMOVAX) 2011-06-19 00:00:00 Completed [facility] Pneumococcal Polysaccharide, PPSV23 (PNEUMOVAX) 2011-06-19 00:00:00 Completed [facility] Pneumococcal Polysaccharide, PPSV23 (PNEUMOVAX) 2011-06-19 00:00:00 Completed [facility] Pneumococcal Polysaccharide, PPSV23 (PNEUMOVAX) 2011-06-19 00:00:00 Completed [facility] Pneumococcal Polysaccharide, PPSV23 (PNEUMOVAX) 2011-06-19 00:00:00 Completed [facility] Pneumococcal Polysaccharide, PPSV23 (PNEUMOVAX) 2011-06-19 00:00:00 Completed [facility] Pneumococcal Polysaccharide, PPSV23 (PNEUMOVAX) 2011-06-19 00:00:00 Completed [facility] Pneumococcal Polysaccharide, PPSV23 (PNEUMOVAX) 2011-06-19 00:00:00 Completed [facility] Pneumococcal Polysaccharide, PPSV23 (PNEUMOVAX) 2011-06-19 00:00:00 Completed [facility] Pneumococcal Polysaccharide, PPSV23 (PNEUMOVAX) 2011-06-19 00:00:00 Completed [facility] Pneumococcal Polysaccharide, PPSV23 (PNEUMOVAX) 2011-06-19 00:00:00 Completed [facility] Pneumococcal Polysaccharide, PPSV23 (PNEUMOVAX) 2011-06-19 00:00:00 Completed [facility] Pneumococcal Polysaccharide, PPSV23 (PNEUMOVAX) 2011-06-19 00:00:00 Completed [facility] Pneumococcal Polysaccharide, PPSV23 (PNEUMOVAX) 2011-06-19 00:00:00 Completed [facility] Pneumococcal Polysaccharide, PPSV23 (PNEUMOVAX) 2011-06-19 00:00:00 Completed [facility] Pneumococcal Polysaccharide, PPSV23 (PNEUMOVAX) 2011-06-19 00:00:00 Completed [facility] Pneumococcal Polysaccharide, PPSV23 (PNEUMOVAX) 2011-06-19 00:00:00 Completed [facility] Pneumococcal Polysaccharide, PPSV23 (PNEUMOVAX) 2011-06-19 00:00:00 Completed [facility] Pneumococcal Polysaccharide, PPSV23 (PNEUMOVAX) 2011-06-19 00:00:00 Completed [facility] Pneumococcal Polysaccharide, PPSV23 (PNEUMOVAX) 2011-06-19 00:00:00 Completed [facility] Pneumococcal Polysaccharide, PPSV23 (PNEUMOVAX) 2011-06-19 00:00:00 Completed [facility] Pneumococcal Polysaccharide, PPSV23 (PNEUMOVAX) 2011-06-19 00:00:00 Completed [facility] Pneumococcal Polysaccharide, PPSV23 (PNEUMOVAX) 2011-06-19 00:00:00 Completed [facility] Pneumococcal Polysaccharide, PPSV23 (PNEUMOVAX) 2011-06-19 00:00:00 Completed [facility] Pneumococcal Polysaccharide, PPSV23 (PNEUMOVAX) 2011-06-19 00:00:00 Completed [facility] Pneumococcal Polysaccharide, PPSV23 (PNEUMOVAX) 2011-06-19 00:00:00 Completed [facility] Pneumococcal Polysaccharide, PPSV23 (PNEUMOVAX) 2011-06-19 00:00:00 Completed [facility] Pneumococcal Polysaccharide, PPSV23 (PNEUMOVAX) 2011-06-19 00:00:00 Completed [facility] Pneumococcal Polysaccharide, PPSV23 (PNEUMOVAX) 2011-06-19 00:00:00 Completed [facility] Pneumococcal Polysaccharide, PPSV23 (PNEUMOVAX) 2011-06-19 00:00:00 Completed [facility] Pneumococcal Polysaccharide, PPSV23 (PNEUMOVAX) 2011-06-19 00:00:00 Completed [facility] Pneumococcal Polysaccharide, PPSV23 (PNEUMOVAX) 2011-06-19 00:00:00 Completed [facility] Pneumococcal Polysaccharide, PPSV23 (PNEUMOVAX) 2011-06-19 00:00:00 Completed [facility] Pneumococcal Polysaccharide, PPSV23 (PNEUMOVAX) 2011-06-19 00:00:00 Completed [facility] Pneumococcal Polysaccharide, PPSV23 (PNEUMOVAX) 2011-06-19 00:00:00 Completed [facility] Pneumococcal Polysaccharide, PPSV23 (PNEUMOVAX) 2011-06-19 00:00:00 Completed [facility] Pneumococcal Polysaccharide, PPSV23 (PNEUMOVAX) 2011-06-19 00:00:00 Completed [facility] Pneumococcal Polysaccharide, PPSV23 (PNEUMOVAX) 2011-06-19 00:00:00 Completed [facility] Pneumococcal Polysaccharide, PPSV23 (PNEUMOVAX) 2011-06-19 00:00:00 Completed [facility] Pneumococcal Polysaccharide, PPSV23 (PNEUMOVAX) 2011-06-19 00:00:00 Completed [facility] Pneumococcal Polysaccharide, PPSV23 (PNEUMOVAX) 2011-06-19 00:00:00 Completed [facility] Pneumococcal Polysaccharide, PPSV23 (PNEUMOVAX) 2011-06-19 00:00:00 Completed [facility] Pneumococcal Polysaccharide, PPSV23 (PNEUMOVAX) 2011-06-19 00:00:00 Completed [facility] Pneumococcal Polysaccharide, PPSV23 (PNEUMOVAX) 2011-06-19 00:00:00 Completed [facility] Pneumococcal Polysaccharide, PPSV23 (PNEUMOVAX) 2011-06-19 00:00:00 Completed [facility] Pneumococcal Polysaccharide, PPSV23 (PNEUMOVAX) 2011-06-19 00:00:00 Completed [facility] Pneumococcal Polysaccharide, PPSV23 (PNEUMOVAX) 2011-06-19 00:00:00 Completed [facility] Pneumococcal Polysaccharide, PPSV23 (PNEUMOVAX) 2011-06-19 00:00:00 Completed [facility] Pneumococcal Polysaccharide, PPSV23 (PNEUMOVAX) 2011-06-19 00:00:00 Completed [facility] Pneumococcal Polysaccharide, PPSV23 (PNEUMOVAX) 2011-06-19 00:00:00 Completed [facility] Pneumococcal Polysaccharide, PPSV23 (PNEUMOVAX) 2011-06-19 00:00:00 Completed [facility] Pneumococcal Polysaccharide, PPSV23 (PNEUMOVAX) 2011-06-19 00:00:00 Completed [facility] Pneumococcal Polysaccharide, PPSV23 (PNEUMOVAX) 2011-06-19 00:00:00 Completed [facility] Pneumococcal Polysaccharide, PPSV23 (PNEUMOVAX) 2011-06-19 00:00:00 Completed [facility] Pneumococcal Polysaccharide, PPSV23 (PNEUMOVAX) 2011-06-19 00:00:00 Completed [facility] Pneumococcal Polysaccharide, PPSV23 (PNEUMOVAX) 2011-06-19 00:00:00 Completed [facility] Pneumococcal Polysaccharide, PPSV23 (PNEUMOVAX) 2011-06-19 00:00:00 Completed [facility] Pneumococcal Polysaccharide, PPSV23 (PNEUMOVAX) 2011-06-19 00:00:00 Completed [facility] Pneumococcal Polysaccharide, PPSV23 (PNEUMOVAX) 2011-06-19 00:00:00 Completed [facility] Pneumococcal Polysaccharide, PPSV23 (PNEUMOVAX) 2011-06-19 00:00:00 Completed [facility] Pneumococcal Polysaccharide, PPSV23 (PNEUMOVAX) 2011-06-19 00:00:00 Completed [facility] Pneumococcal Polysaccharide, PPSV23 (PNEUMOVAX) 2011-06-19 00:00:00 Completed [facility] Pneumococcal Polysaccharide, PPSV23 (PNEUMOVAX) 2011-06-19 00:00:00 Completed [facility] Pneumococcal Polysaccharide, PPSV23 (PNEUMOVAX) 2011-06-19 00:00:00 Completed [facility] Pneumococcal Polysaccharide, PPSV23 (PNEUMOVAX) 2011-06-19 00:00:00 Completed [facility] Pneumococcal Polysaccharide, PPSV23 (PNEUMOVAX) 2011-06-19 00:00:00 Completed [facility] Pneumococcal Polysaccharide, PPSV23 (PNEUMOVAX) 2011-06-19 00:00:00 Completed [facility] Pneumococcal Polysaccharide, PPSV23 (PNEUMOVAX) 2011-06-19 00:00:00 Completed [facility] Pneumococcal Polysaccharide, PPSV23 (PNEUMOVAX) 2011-06-19 00:00:00 Completed [facility] Pneumococcal Polysaccharide, PPSV23 (PNEUMOVAX) 2011-06-19 00:00:00 Completed [facility] Pneumococcal Polysaccharide, PPSV23 (PNEUMOVAX) 2011-06-19 00:00:00 Completed [facility] Pneumococcal Polysaccharide, PPSV23 (PNEUMOVAX) 2011-06-19 00:00:00 Completed [facility] Pneumococcal Polysaccharide, PPSV23 (PNEUMOVAX) 2011-06-19 00:00:00 Completed [facility] Pneumococcal Polysaccharide, PPSV23 (PNEUMOVAX) 2011-06-19 00:00:00 Completed [facility] Pneumococcal Polysaccharide, PPSV23 (PNEUMOVAX) 2011-06-19 00:00:00 Completed [facility] Pneumococcal Polysaccharide, PPSV23 (PNEUMOVAX) 2011-06-19 00:00:00 Completed [facility] Pneumococcal Polysaccharide, PPSV23 (PNEUMOVAX) 2011-06-19 00:00:00 Completed [facility] Pneumococcal Polysaccharide, PPSV23 (PNEUMOVAX) 2011-06-19 00:00:00 Completed [facility] Pneumococcal Polysaccharide, PPSV23 (PNEUMOVAX) 2011-06-19 00:00:00 Completed [facility] Pneumococcal Polysaccharide, PPSV23 (PNEUMOVAX) 2011-06-19 00:00:00 Completed [facility] Pneumococcal Polysaccharide, PPSV23 (PNEUMOVAX) 2011-06-19 00:00:00 Completed [facility] Pneumococcal Polysaccharide, PPSV23 (PNEUMOVAX) 2011-06-19 00:00:00 Completed [facility] Pneumococcal Polysaccharide, PPSV23 (PNEUMOVAX) 2011-06-19 00:00:00 Completed [facility] Pneumococcal Polysaccharide, PPSV23 (PNEUMOVAX) 2011-06-19 00:00:00 Completed [facility] Pneumococcal Polysaccharide, PPSV23 (PNEUMOVAX) 2011-06-19 00:00:00 Completed [facility] Pneumococcal Polysaccharide, PPSV23 (PNEUMOVAX) 2011-06-19 00:00:00 Completed [facility] Pneumococcal Polysaccharide, PPSV23 (PNEUMOVAX) 2011-06-19 00:00:00 Completed [facility] Pneumococcal Polysaccharide, PPSV23 (PNEUMOVAX) 2011-06-19 00:00:00 Completed [facility] Pneumococcal Polysaccharide, PPSV23 (PNEUMOVAX) 2011-06-19 00:00:00 Completed [facility] Pneumococcal Polysaccharide, PPSV23 (PNEUMOVAX) 2011-06-19 00:00:00 Completed [facility] Pneumococcal Polysaccharide, PPSV23 (PNEUMOVAX) 2011-06-19 00:00:00 Completed [facility] Pneumococcal Polysaccharide, PPSV23 (PNEUMOVAX) 2011-06-19 00:00:00 Completed [facility] Pneumococcal Polysaccharide, PPSV23 (PNEUMOVAX) 2011-06-19 00:00:00 Completed [facility] Pneumococcal Polysaccharide, PPSV23 (PNEUMOVAX) 2011-06-19 00:00:00 Completed [facility] Pneumococcal Polysaccharide, PPSV23 (PNEUMOVAX) 2011-06-19 00:00:00 Completed [facility] Pneumococcal Polysaccharide, PPSV23 (PNEUMOVAX) 2011-06-19 00:00:00 Completed [facility] Pneumococcal Polysaccharide, PPSV23 (PNEUMOVAX) 2011-06-19 00:00:00 Completed [facility] Pneumococcal Polysaccharide, PPSV23 (PNEUMOVAX) 2011-06-19 00:00:00 Completed [facility] Pneumococcal Polysaccharide, PPSV23 (PNEUMOVAX) 2011-06-19 00:00:00 Completed [facility] Pneumococcal Polysaccharide, PPSV23 (PNEUMOVAX) 2011-06-19 00:00:00 Completed [facility] Pneumococcal Polysaccharide, PPSV23 (PNEUMOVAX) 2011-06-19 00:00:00 Completed [facility] Pneumococcal Polysaccharide, PPSV23 (PNEUMOVAX) 2011-06-19 00:00:00 Completed [facility] Pneumococcal Polysaccharide, PPSV23 (PNEUMOVAX) 2011-06-19 00:00:00 Completed [facility] Pneumococcal Polysaccharide, PPSV23 (PNEUMOVAX) 2011-06-19 00:00:00 Completed [facility] Pneumococcal Polysaccharide, PPSV23 (PNEUMOVAX) 2011-06-19 00:00:00 Completed [facility] Pneumococcal Polysaccharide, PPSV23 (PNEUMOVAX) 2011-06-19 00:00:00 Completed [facility] Pneumococcal Polysaccharide, PPSV23 (PNEUMOVAX) 2011-06-19 00:00:00 Completed [facility] Pneumococcal Polysaccharide, PPSV23 (PNEUMOVAX) 2011-06-19 00:00:00 Completed [facility] Pneumococcal Polysaccharide, PPSV23 (PNEUMOVAX) 2011-06-19 00:00:00 Completed [facility] Pneumococcal Polysaccharide, PPSV23 (PNEUMOVAX) 2011-06-19 00:00:00 Completed [facility] Pneumococcal Polysaccharide, PPSV23 (PNEUMOVAX) 2011-06-19 00:00:00 Completed [facility] Pneumococcal Polysaccharide, PPSV23 (PNEUMOVAX) 2011-06-19 00:00:00 Completed [facility] Pneumococcal Polysaccharide, PPSV23 (PNEUMOVAX) 2011-06-19 00:00:00 Completed [facility] Pneumococcal Polysaccharide, PPSV23 (PNEUMOVAX) 2011-06-19 00:00:00 Completed [facility] Pneumococcal Polysaccharide, PPSV23 (PNEUMOVAX) 2011-06-19 00:00:00 Completed Pneumococcal Polysaccharide, PPSV23 (PNEUMOVAX) 2011-06-19 00:00:00 Completed Pneumococcal Polysaccharide, PPSV23 (PNEUMOVAX) 2011-05-05 00:00:00 Completed [facility] TDAP 2011-05-05 00:00:00 Completed [facility] Pneumococcal Polysaccharide, PPSV23 (PNEUMOVAX) 2011-05-05 00:00:00 Completed [facility] TDAP 2011-05-05 00:00:00 Completed [facility] Pneumococcal Polysaccharide, PPSV23 (PNEUMOVAX) 2011-05-05 00:00:00 Completed [facility] TDAP 2011-05-05 00:00:00 Completed [facility] Pneumococcal Polysaccharide, PPSV23 (PNEUMOVAX) 2011-05-05 00:00:00 Completed [facility] TDAP 2011-05-05 00:00:00 Completed [facility] Pneumococcal Polysaccharide, PPSV23 (PNEUMOVAX) 2011-05-05 00:00:00 Completed [facility] TDAP 2011-05-05 00:00:00 Completed [facility] Pneumococcal Polysaccharide, PPSV23 (PNEUMOVAX) 2011-05-05 00:00:00 Completed [facility] TDAP 2011-05-05 00:00:00 Completed [facility] Pneumococcal Polysaccharide, PPSV23 (PNEUMOVAX) 2011-05-05 00:00:00 Completed [facility] TDAP 2011-05-05 00:00:00 Completed [facility] Pneumococcal Polysaccharide, PPSV23 (PNEUMOVAX) 2011-05-05 00:00:00 Completed [facility] TDAP 2011-05-05 00:00:00 Completed [facility] Pneumococcal Polysaccharide, PPSV23 (PNEUMOVAX) 2011-05-05 00:00:00 Completed [facility] TDAP 2011-05-05 00:00:00 Completed [facility] Pneumococcal Polysaccharide, PPSV23 (PNEUMOVAX) 2011-05-05 00:00:00 Completed [facility] TDAP 2011-05-05 00:00:00 Completed [facility] Pneumococcal Polysaccharide, PPSV23 (PNEUMOVAX) 2011-05-05 00:00:00 Completed [facility] TDAP 2011-05-05 00:00:00 Completed [facility] Pneumococcal Polysaccharide, PPSV23 (PNEUMOVAX) 2011-05-05 00:00:00 Completed [facility] TDAP 2011-05-05 00:00:00 Completed [facility] Pneumococcal Polysaccharide, PPSV23 (PNEUMOVAX) 2011-05-05 00:00:00 Completed [facility] TDAP 2011-05-05 00:00:00 Completed [facility] Pneumococcal Polysaccharide, PPSV23 (PNEUMOVAX) 2011-05-05 00:00:00 Completed [facility] TDAP 2011-05-05 00:00:00 Completed [facility] Pneumococcal Polysaccharide, PPSV23 (PNEUMOVAX) 2011-05-05 00:00:00 Completed [facility] TDAP 2011-05-05 00:00:00 Completed [facility] Pneumococcal Polysaccharide, PPSV23 (PNEUMOVAX) 2011-05-05 00:00:00 Completed [facility] TDAP 2011-05-05 00:00:00 Completed [facility] Pneumococcal Polysaccharide, PPSV23 (PNEUMOVAX) 2011-05-05 00:00:00 Completed [facility] TDAP 2011-05-05 00:00:00 Completed [facility] Pneumococcal Polysaccharide, PPSV23 (PNEUMOVAX) 2011-05-05 00:00:00 Completed [facility] TDAP 2011-05-05 00:00:00 Completed [facility] Pneumococcal Polysaccharide, PPSV23 (PNEUMOVAX) 2011-05-05 00:00:00 Completed [facility] TDAP 2011-05-05 00:00:00 Completed [facility] Pneumococcal Polysaccharide, PPSV23 (PNEUMOVAX) 2011-05-05 00:00:00 Completed [facility] TDAP 2011-05-05 00:00:00 Completed [facility] Pneumococcal Polysaccharide, PPSV23 (PNEUMOVAX) 2011-05-05 00:00:00 Completed [facility] TDAP 2011-05-05 00:00:00 Completed [facility] Pneumococcal Polysaccharide, PPSV23 (PNEUMOVAX) 2011-05-05 00:00:00 Completed [facility] TDAP 2011-05-05 00:00:00 Completed [facility] Pneumococcal Polysaccharide, PPSV23 (PNEUMOVAX) 2011-05-05 00:00:00 Completed [facility] TDAP 2011-05-05 00:00:00 Completed [facility] Pneumococcal Polysaccharide, PPSV23 (PNEUMOVAX) 2011-05-05 00:00:00 Completed [facility] TDAP 2011-05-05 00:00:00 Completed [facility] Pneumococcal Polysaccharide, PPSV23 (PNEUMOVAX) 2011-05-05 00:00:00 Completed [facility] TDAP 2011-05-05 00:00:00 Completed [facility] Pneumococcal Polysaccharide, PPSV23 (PNEUMOVAX) 2011-05-05 00:00:00 Completed [facility] TDAP 2011-05-05 00:00:00 Completed [facility] Pneumococcal Polysaccharide, PPSV23 (PNEUMOVAX) 2011-05-05 00:00:00 Completed [facility] TDAP 2011-05-05 00:00:00 Completed [facility] Pneumococcal Polysaccharide, PPSV23 (PNEUMOVAX) 2011-05-05 00:00:00 Completed [facility] TDAP 2011-05-05 00:00:00 Completed [facility] Pneumococcal Polysaccharide, PPSV23 (PNEUMOVAX) 2011-05-05 00:00:00 Completed [facility] TDAP 2011-05-05 00:00:00 Completed [facility] Pneumococcal Polysaccharide, PPSV23 (PNEUMOVAX) 2011-05-05 00:00:00 Completed [facility] TDAP 2011-05-05 00:00:00 Completed [facility] Pneumococcal Polysaccharide, PPSV23 (PNEUMOVAX) 2011-05-05 00:00:00 Completed [facility] TDAP 2011-05-05 00:00:00 Completed [facility] Pneumococcal Polysaccharide, PPSV23 (PNEUMOVAX) 2011-05-05 00:00:00 Completed [facility] TDAP 2011-05-05 00:00:00 Completed [facility] Pneumococcal Polysaccharide, PPSV23 (PNEUMOVAX) 2011-05-05 00:00:00 Completed [facility] TDAP 2011-05-05 00:00:00 Completed [facility] Pneumococcal Polysaccharide, PPSV23 (PNEUMOVAX) 2011-05-05 00:00:00 Completed [facility] TDAP 2011-05-05 00:00:00 Completed [facility] Pneumococcal Polysaccharide, PPSV23 (PNEUMOVAX) 2011-05-05 00:00:00 Completed [facility] TDAP 2011-05-05 00:00:00 Completed [facility] Pneumococcal Polysaccharide, PPSV23 (PNEUMOVAX) 2011-05-05 00:00:00 Completed [facility] TDAP 2011-05-05 00:00:00 Completed [facility] Pneumococcal Polysaccharide, PPSV23 (PNEUMOVAX) 2011-05-05 00:00:00 Completed [facility] TDAP 2011-05-05 00:00:00 Completed [facility] Pneumococcal Polysaccharide, PPSV23 (PNEUMOVAX) 2011-05-05 00:00:00 Completed [facility] TDAP 2011-05-05 00:00:00 Completed [facility] Pneumococcal Polysaccharide, PPSV23 (PNEUMOVAX) 2011-05-05 00:00:00 Completed [facility] TDAP 2011-05-05 00:00:00 Completed [facility] Pneumococcal Polysaccharide, PPSV23 (PNEUMOVAX) 2011-05-05 00:00:00 Completed [facility] TDAP 2011-05-05 00:00:00 Completed [facility] Pneumococcal Polysaccharide, PPSV23 (PNEUMOVAX) 2011-05-05 00:00:00 Completed [facility] TDAP 2011-05-05 00:00:00 Completed [facility] Pneumococcal Polysaccharide, PPSV23 (PNEUMOVAX) 2011-05-05 00:00:00 Completed [facility] TDAP 2011-05-05 00:00:00 Completed [facility] Pneumococcal Polysaccharide, PPSV23 (PNEUMOVAX) 2011-05-05 00:00:00 Completed [facility] TDAP 2011-05-05 00:00:00 Completed [facility] Pneumococcal Polysaccharide, PPSV23 (PNEUMOVAX) 2011-05-05 00:00:00 Completed [facility] TDAP 2011-05-05 00:00:00 Completed [facility] Pneumococcal Polysaccharide, PPSV23 (PNEUMOVAX) 2011-05-05 00:00:00 Completed [facility] TDAP 2011-05-05 00:00:00 Completed [facility] Pneumococcal Polysaccharide, PPSV23 (PNEUMOVAX) 2011-05-05 00:00:00 Completed [facility] TDAP 2011-05-05 00:00:00 Completed [facility] Pneumococcal Polysaccharide, PPSV23 (PNEUMOVAX) 2011-05-05 00:00:00 Completed [facility] TDAP 2011-05-05 00:00:00 Completed [facility] Pneumococcal Polysaccharide, PPSV23 (PNEUMOVAX) 2011-05-05 00:00:00 Completed [facility] TDAP 2011-05-05 00:00:00 Completed [facility] Pneumococcal Polysaccharide, PPSV23 (PNEUMOVAX) 2011-05-05 00:00:00 Completed [facility] TDAP 2011-05-05 00:00:00 Completed [facility] Pneumococcal Polysaccharide, PPSV23 (PNEUMOVAX) 2011-05-05 00:00:00 Completed [facility] TDAP 2011-05-05 00:00:00 Completed [facility] Pneumococcal Polysaccharide, PPSV23 (PNEUMOVAX) 2011-05-05 00:00:00 Completed [facility] TDAP 2011-05-05 00:00:00 Completed [facility] Pneumococcal Polysaccharide, PPSV23 (PNEUMOVAX) 2011-05-05 00:00:00 Completed [facility] TDAP 2011-05-05 00:00:00 Completed [facility] Pneumococcal Polysaccharide, PPSV23 (PNEUMOVAX) 2011-05-05 00:00:00 Completed [facility] TDAP 2011-05-05 00:00:00 Completed [facility] Pneumococcal Polysaccharide, PPSV23 (PNEUMOVAX) 2011-05-05 00:00:00 Completed [facility] TDAP 2011-05-05 00:00:00 Completed [facility] Pneumococcal Polysaccharide, PPSV23 (PNEUMOVAX) 2011-05-05 00:00:00 Completed [facility] TDAP 2011-05-05 00:00:00 Completed [facility] Pneumococcal Polysaccharide, PPSV23 (PNEUMOVAX) 2011-05-05 00:00:00 Completed [facility] TDAP 2011-05-05 00:00:00 Completed [facility] Pneumococcal Polysaccharide, PPSV23 (PNEUMOVAX) 2011-05-05 00:00:00 Completed [facility] TDAP 2011-05-05 00:00:00 Completed [facility] Pneumococcal Polysaccharide, PPSV23 (PNEUMOVAX) 2011-05-05 00:00:00 Completed [facility] TDAP 2011-05-05 00:00:00 Completed [facility] Pneumococcal Polysaccharide, PPSV23 (PNEUMOVAX) 2011-05-05 00:00:00 Completed [facility] TDAP 2011-05-05 00:00:00 Completed [facility] Pneumococcal Polysaccharide, PPSV23 (PNEUMOVAX) 2011-05-05 00:00:00 Completed [facility] TDAP 2011-05-05 00:00:00 Completed [facility] Pneumococcal Polysaccharide, PPSV23 (PNEUMOVAX) 2011-05-05 00:00:00 Completed [facility] TDAP 2011-05-05 00:00:00 Completed [facility] Pneumococcal Polysaccharide, PPSV23 (PNEUMOVAX) 2011-05-05 00:00:00 Completed [facility] TDAP 2011-05-05 00:00:00 Completed [facility] Pneumococcal Polysaccharide, PPSV23 (PNEUMOVAX) 2011-05-05 00:00:00 Completed [facility] TDAP 2011-05-05 00:00:00 Completed [facility] Pneumococcal Polysaccharide, PPSV23 (PNEUMOVAX) 2011-05-05 00:00:00 Completed [facility] TDAP 2011-05-05 00:00:00 Completed [facility] Pneumococcal Polysaccharide, PPSV23 (PNEUMOVAX) 2011-05-05 00:00:00 Completed [facility] TDAP 2011-05-05 00:00:00 Completed [facility] Pneumococcal Polysaccharide, PPSV23 (PNEUMOVAX) 2011-05-05 00:00:00 Completed [facility] TDAP 2011-05-05 00:00:00 Completed [facility] Pneumococcal Polysaccharide, PPSV23 (PNEUMOVAX) 2011-05-05 00:00:00 Completed [facility] TDAP 2011-05-05 00:00:00 Completed [facility] Pneumococcal Polysaccharide, PPSV23 (PNEUMOVAX) 2011-05-05 00:00:00 Completed [facility] TDAP 2011-05-05 00:00:00 Completed [facility] Pneumococcal Polysaccharide, PPSV23 (PNEUMOVAX) 2011-05-05 00:00:00 Completed [facility] TDAP 2011-05-05 00:00:00 Completed [facility] Pneumococcal Polysaccharide, PPSV23 (PNEUMOVAX) 2011-05-05 00:00:00 Completed [facility] TDAP 2011-05-05 00:00:00 Completed [facility] Pneumococcal Polysaccharide, PPSV23 (PNEUMOVAX) 2011-05-05 00:00:00 Completed [facility] TDAP 2011-05-05 00:00:00 Completed [facility] Pneumococcal Polysaccharide, PPSV23 (PNEUMOVAX) 2011-05-05 00:00:00 Completed [facility] TDAP 2011-05-05 00:00:00 Completed [facility] Pneumococcal Polysaccharide, PPSV23 (PNEUMOVAX) 2011-05-05 00:00:00 Completed [facility] TDAP 2011-05-05 00:00:00 Completed [facility] Pneumococcal Polysaccharide, PPSV23 (PNEUMOVAX) 2011-05-05 00:00:00 Completed [facility] TDAP 2011-05-05 00:00:00 Completed [facility] Pneumococcal Polysaccharide, PPSV23 (PNEUMOVAX) 2011-05-05 00:00:00 Completed [facility] TDAP 2011-05-05 00:00:00 Completed [facility] Pneumococcal Polysaccharide, PPSV23 (PNEUMOVAX) 2011-05-05 00:00:00 Completed [facility] TDAP 2011-05-05 00:00:00 Completed [facility] Pneumococcal Polysaccharide, PPSV23 (PNEUMOVAX) 2011-05-05 00:00:00 Completed [facility] TDAP 2011-05-05 00:00:00 Completed [facility] Pneumococcal Polysaccharide, PPSV23 (PNEUMOVAX) 2011-05-05 00:00:00 Completed [facility] TDAP 2011-05-05 00:00:00 Completed [facility] Pneumococcal Polysaccharide, PPSV23 (PNEUMOVAX) 2011-05-05 00:00:00 Completed [facility] TDAP 2011-05-05 00:00:00 Completed [facility] Pneumococcal Polysaccharide, PPSV23 (PNEUMOVAX) 2011-05-05 00:00:00 Completed [facility] TDAP 2011-05-05 00:00:00 Completed [facility] Pneumococcal Polysaccharide, PPSV23 (PNEUMOVAX) 2011-05-05 00:00:00 Completed [facility] TDAP 2011-05-05 00:00:00 Completed [facility] Pneumococcal Polysaccharide, PPSV23 (PNEUMOVAX) 2011-05-05 00:00:00 Completed [facility] TDAP 2011-05-05 00:00:00 Completed [facility] Pneumococcal Polysaccharide, PPSV23 (PNEUMOVAX) 2011-05-05 00:00:00 Completed [facility] TDAP 2011-05-05 00:00:00 Completed [facility] Pneumococcal Polysaccharide, PPSV23 (PNEUMOVAX) 2011-05-05 00:00:00 Completed [facility] TDAP 2011-05-05 00:00:00 Completed [facility] Pneumococcal Polysaccharide, PPSV23 (PNEUMOVAX) 2011-05-05 00:00:00 Completed [facility] TDAP 2011-05-05 00:00:00 Completed [facility] Pneumococcal Polysaccharide, PPSV23 (PNEUMOVAX) 2011-05-05 00:00:00 Completed [facility] TDAP 2011-05-05 00:00:00 Completed [facility] Pneumococcal Polysaccharide, PPSV23 (PNEUMOVAX) 2011-05-05 00:00:00 Completed [facility] TDAP 2011-05-05 00:00:00 Completed [facility] Pneumococcal Polysaccharide, PPSV23 (PNEUMOVAX) 2011-05-05 00:00:00 Completed [facility] TDAP 2011-05-05 00:00:00 Completed [facility] Pneumococcal Polysaccharide, PPSV23 (PNEUMOVAX) 2011-05-05 00:00:00 Completed [facility] TDAP 2011-05-05 00:00:00 Completed [facility] Pneumococcal Polysaccharide, PPSV23 (PNEUMOVAX) 2011-05-05 00:00:00 Completed [facility] TDAP 2011-05-05 00:00:00 Completed [facility] Pneumococcal Polysaccharide, PPSV23 (PNEUMOVAX) 2011-05-05 00:00:00 Completed [facility] TDAP 2011-05-05 00:00:00 Completed [facility] Pneumococcal Polysaccharide, PPSV23 (PNEUMOVAX) 2011-05-05 00:00:00 Completed [facility] TDAP 2011-05-05 00:00:00 Completed [facility] Pneumococcal Polysaccharide, PPSV23 (PNEUMOVAX) 2011-05-05 00:00:00 Completed [facility] TDAP 2011-05-05 00:00:00 Completed [facility] Pneumococcal Polysaccharide, PPSV23 (PNEUMOVAX) 2011-05-05 00:00:00 Completed [facility] TDAP 2011-05-05 00:00:00 Completed [facility] Pneumococcal Polysaccharide, PPSV23 (PNEUMOVAX) 2011-05-05 00:00:00 Completed [facility] TDAP 2011-05-05 00:00:00 Completed [facility] Pneumococcal Polysaccharide, PPSV23 (PNEUMOVAX) 2011-05-05 00:00:00 Completed [facility] TDAP 2011-05-05 00:00:00 Completed [facility] Pneumococcal Polysaccharide, PPSV23 (PNEUMOVAX) 2011-05-05 00:00:00 Completed [facility] TDAP 2011-05-05 00:00:00 Completed [facility] Pneumococcal Polysaccharide, PPSV23 (PNEUMOVAX) 2011-05-05 00:00:00 Completed [facility] TDAP 2011-05-05 00:00:00 Completed [facility] Pneumococcal Polysaccharide, PPSV23 (PNEUMOVAX) 2011-05-05 00:00:00 Completed [facility] TDAP 2011-05-05 00:00:00 Completed [facility] Pneumococcal Polysaccharide, PPSV23 (PNEUMOVAX) 2011-05-05 00:00:00 Completed [facility] TDAP 2011-05-05 00:00:00 Completed [facility] Pneumococcal Polysaccharide, PPSV23 (PNEUMOVAX) 2011-05-05 00:00:00 Completed [facility] TDAP 2011-05-05 00:00:00 Completed [facility] Pneumococcal Polysaccharide, PPSV23 (PNEUMOVAX) 2011-05-05 00:00:00 Completed [facility] TDAP 2011-05-05 00:00:00 Completed [facility] Pneumococcal Polysaccharide, PPSV23 (PNEUMOVAX) 2011-05-05 00:00:00 Completed [facility] TDAP 2011-05-05 00:00:00 Completed [facility] Pneumococcal Polysaccharide, PPSV23 (PNEUMOVAX) 2011-05-05 00:00:00 Completed [facility] TDAP 2011-05-05 00:00:00 Completed [facility] Pneumococcal Polysaccharide, PPSV23 (PNEUMOVAX) 2011-05-05 00:00:00 Completed [facility] TDAP 2011-05-05 00:00:00 Completed [facility] Pneumococcal Polysaccharide, PPSV23 (PNEUMOVAX) 2011-05-05 00:00:00 Completed [facility] TDAP 2011-05-05 00:00:00 Completed [facility] Pneumococcal Polysaccharide, PPSV23 (PNEUMOVAX) 2011-05-05 00:00:00 Completed [facility] TDAP 2011-05-05 00:00:00 Completed [facility] Pneumococcal Polysaccharide, PPSV23 (PNEUMOVAX) 2011-05-05 00:00:00 Completed [facility] TDAP 2011-05-05 00:00:00 Completed [facility] Pneumococcal Polysaccharide, PPSV23 (PNEUMOVAX) 2011-05-05 00:00:00 Completed [facility] TDAP 2011-05-05 00:00:00 Completed [facility] Pneumococcal Polysaccharide, PPSV23 (PNEUMOVAX) 2011-05-05 00:00:00 Completed [facility] TDAP 2011-05-05 00:00:00 Completed [facility] Pneumococcal Polysaccharide, PPSV23 (PNEUMOVAX) 2011-05-05 00:00:00 Completed [facility] TDAP 2011-05-05 00:00:00 Completed [facility] Pneumococcal Polysaccharide, PPSV23 (PNEUMOVAX) 2011-05-05 00:00:00 Completed [facility] TDAP 2011-05-05 00:00:00 Completed [facility] Pneumococcal Polysaccharide, PPSV23 (PNEUMOVAX) 2011-05-05 00:00:00 Completed [facility] TDAP 2011-05-05 00:00:00 Completed [facility] Pneumococcal Polysaccharide, PPSV23 (PNEUMOVAX) 2011-05-05 00:00:00 Completed [facility] TDAP 2011-05-05 00:00:00 Completed [facility] Pneumococcal Polysaccharide, PPSV23 (PNEUMOVAX) 2011-05-05 00:00:00 Completed [facility] TDAP 2011-05-05 00:00:00 Completed [facility] Pneumococcal Polysaccharide, PPSV23 (PNEUMOVAX) 2011-05-05 00:00:00 Completed [facility] TDAP 2011-05-05 00:00:00 Completed [facility] Pneumococcal Polysaccharide, PPSV23 (PNEUMOVAX) 2011-05-05 00:00:00 Completed [facility] TDAP 2011-05-05 00:00:00 Completed [facility] Pneumococcal Polysaccharide, PPSV23 (PNEUMOVAX) 2011-05-05 00:00:00 Completed [facility] TDAP 2011-05-05 00:00:00 Completed [facility] Pneumococcal Polysaccharide, PPSV23 (PNEUMOVAX) 2011-05-05 00:00:00 Completed [facility] TDAP 2011-05-05 00:00:00 Completed [facility] Pneumococcal Polysaccharide, PPSV23 (PNEUMOVAX) 2011-05-05 00:00:00 Completed [facility] TDAP 2011-05-05 00:00:00 Completed [facility] Pneumococcal Polysaccharide, PPSV23 (PNEUMOVAX) 2011-05-05 00:00:00 Completed [facility] TDAP 2011-05-05 00:00:00 Completed [facility] Pneumococcal Polysaccharide, PPSV23 (PNEUMOVAX) 2011-05-05 00:00:00 Completed [facility] TDAP 2011-05-05 00:00:00 Completed [facility] Pneumococcal Polysaccharide, PPSV23 (PNEUMOVAX) 2011-05-05 00:00:00 Completed [facility] TDAP 2011-05-05 00:00:00 Completed [facility] Pneumococcal Polysaccharide, PPSV23 (PNEUMOVAX) 2011-05-05 00:00:00 Completed [facility] TDAP 2011-05-05 00:00:00 Completed [facility] Pneumococcal Polysaccharide, PPSV23 (PNEUMOVAX) 2011-05-05 00:00:00 Completed [facility] TDAP 2011-05-05 00:00:00 Completed [facility] Pneumococcal Polysaccharide, PPSV23 (PNEUMOVAX) 2011-05-05 00:00:00 Completed [facility] TDAP 2011-05-05 00:00:00 Completed [facility] TDAP 2011-05-05 00:00:00 Completed [facility] Pneumococcal Polysaccharide, PPSV23 (PNEUMOVAX) 2011-05-05 00:00:00 Completed Pneumococcal Polysaccharide, PPSV23 (PNEUMOVAX) 2011-05-05 00:00:00 Completed TDAP 2011-05-05 00:00:00 Completed Pneumococcal Polysaccharide, PPSV23 (PNEUMOVAX) 2011-05-05 00:00:00 Completed TDAP 2011-05-05 00:00:00 Completed Pneumococcal 13 Conjugate, PCV13 (Prevnar 13) Unknown Completed [facility] TDAP Unknown Completed [facility] Pneumococcal Polysaccharide, PPSV23 (PNEUMOVAX) Unknown Completed [facility] Influenza High Dose Unknown Completed [facility] Influenza Virus Vaccine Unknown Completed [facility] SARS-COV-2 COVID-19 UNSPECIFIED VACCINE Unknown Completed [facility] Influenza Virus Vaccine Quad IM Multi-dose 6+ MO Unknown Completed [facility] Influenza Virus Vaccine,quad Im,preserve Free 65+ (FLUAD) Unknown Completed [facility] SARS-COV-2 COVID-19 VACCINE - (MODERNA) Unknown Completed [facility] Pneumococcal 13 Conjugate, PCV13 (Prevnar 13) Unknown Completed [facility] TDAP Unknown Completed [facility] Pneumococcal Polysaccharide, PPSV23 (PNEUMOVAX) Unknown Completed [facility] Influenza High Dose Unknown Completed [facility] Influenza Virus Vaccine Unknown Completed [facility] SARS-COV-2 COVID-19 UNSPECIFIED VACCINE Unknown Completed [facility] Influenza Virus Vaccine Quad IM Multi-dose 6+ MO Unknown Completed [facility] Influenza Virus Vaccine,quad Im,preserve Free 65+ (FLUAD) Unknown Completed [facility] SARS-COV-2 COVID-19 VACCINE - (MODERNA) Unknown Completed [facility] Pneumococcal 13 Conjugate, PCV13 (Prevnar 13) Unknown Completed [facility] TDAP Unknown Completed [facility] Pneumococcal Polysaccharide, PPSV23 (PNEUMOVAX) Unknown Completed [facility] Influenza High Dose Unknown Completed [facility] Influenza Virus Vaccine Unknown Completed [facility] SARS-COV-2 COVID-19 UNSPECIFIED VACCINE Unknown Completed [facility] Influenza Virus Vaccine Quad IM Multi-dose 6+ MO Unknown Completed [facility] Influenza Virus Vaccine,quad Im,preserve Free 65+ (FLUAD) Unknown Completed [facility] SARS-COV-2 COVID-19 VACCINE - (MODERNA) Unknown Completed [facility] Pneumococcal 13 Conjugate, PCV13 (Prevnar 13) Unknown Completed [facility] TDAP Unknown Completed [facility] Pneumococcal Polysaccharide, PPSV23 (PNEUMOVAX) Unknown Completed [facility] Influenza High Dose Unknown Completed [facility] Influenza Virus Vaccine Unknown Completed [facility] SARS-COV-2 COVID-19 UNSPECIFIED VACCINE Unknown Completed [facility] Influenza Virus Vaccine Quad IM Multi-dose 6+ MO Unknown Completed [facility] Influenza Virus Vaccine,quad Im,preserve Free 65+ (FLUAD) Unknown Completed [facility] SARS-COV-2 COVID-19 VACCINE - (MODERNA) Unknown Completed [facility] Pneumococcal 13 Conjugate, PCV13 (Prevnar 13) Unknown Completed [facility] TDAP Unknown Completed [facility] Pneumococcal Polysaccharide, PPSV23 (PNEUMOVAX) Unknown Completed [facility] Influenza High Dose Unknown Completed [facility] Influenza Virus Vaccine Unknown Completed [facility] SARS-COV-2 COVID-19 UNSPECIFIED VACCINE Unknown Completed [facility] Influenza Virus Vaccine Quad IM Multi-dose 6+ MO Unknown Completed [facility] Influenza Virus Vaccine,quad Im,preserve Free 65+ (FLUAD) Unknown Completed [facility] SARS-COV-2 COVID-19 VACCINE - (MODERNA) Unknown Completed [facility] Pneumococcal 13 Conjugate, PCV13 (Prevnar 13) Unknown Completed [facility] TDAP Unknown Completed [facility] Pneumococcal Polysaccharide, PPSV23 (PNEUMOVAX) Unknown Completed [facility] Influenza High Dose Unknown Completed [facility] Influenza Virus Vaccine Unknown Completed [facility] SARS-COV-2 COVID-19 UNSPECIFIED VACCINE Unknown Completed [facility] Influenza Virus Vaccine Quad IM Multi-dose 6+ MO Unknown Completed [facility] Influenza Virus Vaccine,quad Im,preserve Free 65+ (FLUAD) Unknown Completed [facility] SARS-COV-2 COVID-19 VACCINE - (MODERNA) Unknown Completed [facility] Pneumococcal 13 Conjugate, PCV13 (Prevnar 13) Unknown Completed [facility] TDAP Unknown Completed [facility] Pneumococcal Polysaccharide, PPSV23 (PNEUMOVAX) Unknown Completed [facility] Influenza High Dose Unknown Completed [facility] Influenza Virus Vaccine Unknown Completed [facility] SARS-COV-2 COVID-19 UNSPECIFIED VACCINE Unknown Completed [facility] Influenza Virus Vaccine Quad IM Multi-dose 6+ MO Unknown Completed [facility] Influenza Virus Vaccine,quad Im,preserve Free 65+ (FLUAD) Unknown Completed [facility] SARS-COV-2 COVID-19 VACCINE - (MODERNA) Unknown Completed [facility] Pneumococcal 13 Conjugate, PCV13 (Prevnar 13) Unknown Completed [facility] TDAP Unknown Completed [facility] Pneumococcal Polysaccharide, PPSV23 (PNEUMOVAX) Unknown Completed [facility] Influenza High Dose Unknown Completed [facility] Influenza Virus Vaccine Unknown Completed [facility] SARS-COV-2 COVID-19 UNSPECIFIED VACCINE Unknown Completed [facility] Influenza Virus Vaccine Quad IM Multi-dose 6+ MO Unknown Completed [facility] Influenza Virus Vaccine,quad Im,preserve Free 65+ (FLUAD) Unknown Completed [facility] SARS-COV-2 COVID-19 VACCINE - (MODERNA) Unknown Completed [facility] Pneumococcal 13 Conjugate, PCV13 (Prevnar 13) Unknown Completed [facility] TDAP Unknown Completed [facility] Pneumococcal Polysaccharide, PPSV23 (PNEUMOVAX) Unknown Completed [facility] Influenza High Dose Unknown Completed [facility] Influenza Virus Vaccine Unknown Completed [facility] SARS-COV-2 COVID-19 UNSPECIFIED VACCINE Unknown Completed [facility] Influenza Virus Vaccine Quad IM Multi-dose 6+ MO Unknown Completed [facility] SARS-COV-2 COVID-19 VACCINE - (MODERNA) Unknown Completed [facility] Pneumococcal 13 Conjugate, PCV13 (Prevnar 13) Unknown Completed [facility] TDAP Unknown Completed [facility] Pneumococcal Polysaccharide, PPSV23 (PNEUMOVAX) Unknown Completed [facility] Influenza High Dose Unknown Completed [facility] Influenza Virus Vaccine Unknown Completed [facility] SARS-COV-2 COVID-19 UNSPECIFIED VACCINE Unknown Completed [facility] Influenza Virus Vaccine Quad IM Multi-dose 6+ MO Unknown Completed [facility] SARS-COV-2 COVID-19 VACCINE - (MODERNA) Unknown Completed [facility] Pneumococcal 13 Conjugate, PCV13 (Prevnar 13) Unknown Completed [facility] TDAP Unknown Completed [facility] Pneumococcal Polysaccharide, PPSV23 (PNEUMOVAX) Unknown Completed [facility] Influenza High Dose Unknown Completed [facility] Influenza Virus Vaccine Unknown Completed [facility] SARS-COV-2 COVID-19 UNSPECIFIED VACCINE Unknown Completed [facility] Influenza Virus Vaccine Quad IM Multi-dose 6+ MO Unknown Completed [facility] SARS-COV-2 COVID-19 VACCINE - (MODERNA) Unknown Completed [facility] Pneumococcal 13 Conjugate, PCV13 (Prevnar 13) Unknown Completed [facility] TDAP Unknown Completed [facility] Pneumococcal Polysaccharide, PPSV23 (PNEUMOVAX) Unknown Completed [facility] Influenza High Dose Unknown Completed [facility] Influenza Virus Vaccine Unknown Completed [facility] SARS-COV-2 COVID-19 UNSPECIFIED VACCINE Unknown Completed [facility] Influenza Virus Vaccine Quad IM Multi-dose 6+ MO Unknown Completed [facility] Influenza Virus Vaccine,quad Im,preserve Free 65+ (FLUAD) Unknown Completed [facility] SARS-COV-2 COVID-19 VACCINE - (MODERNA) Unknown Completed [facility] Pneumococcal 13 Conjugate, PCV13 (Prevnar 13) Unknown Completed [facility] TDAP Unknown Completed [facility] Pneumococcal Polysaccharide, PPSV23 (PNEUMOVAX) Unknown Completed [facility] Influenza High Dose Unknown Completed [facility] Influenza Virus Vaccine Unknown Completed [facility] SARS-COV-2 COVID-19 UNSPECIFIED VACCINE Unknown Completed [facility] Influenza Virus Vaccine Quad IM Multi-dose 6+ MO Unknown Completed [facility] Influenza Virus Vaccine,quad Im,preserve Free 65+ (FLUAD) Unknown Completed [facility] SARS-COV-2 COVID-19 VACCINE - (MODERNA) Unknown Completed [facility] Pneumococcal 13 Conjugate, PCV13 (Prevnar 13) Unknown Completed [facility] TDAP Unknown Completed [facility] Pneumococcal Polysaccharide, PPSV23 (PNEUMOVAX) Unknown Completed [facility] Influenza High Dose Unknown Completed [facility] Influenza Virus Vaccine Unknown Completed [facility] SARS-COV-2 COVID-19 UNSPECIFIED VACCINE Unknown Completed [facility] Influenza Virus Vaccine Quad IM Multi-dose 6+ MO Unknown Completed [facility] Influenza Virus Vaccine,quad Im,preserve Free 65+ (FLUAD) Unknown Completed [facility] SARS-COV-2 COVID-19 VACCINE - (MODERNA) Unknown Completed [facility] Pneumococcal 13 Conjugate, PCV13 (Prevnar 13) Unknown Completed [facility] TDAP Unknown Completed [facility] Pneumococcal Polysaccharide, PPSV23 (PNEUMOVAX) Unknown Completed [facility] Influenza High Dose Unknown Completed [facility] Influenza Virus Vaccine Unknown Completed [facility] SARS-COV-2 COVID-19 UNSPECIFIED VACCINE Unknown Completed [facility] Influenza Virus Vaccine Quad IM Multi-dose 6+ MO Unknown Completed [facility] Influenza Virus Vaccine,quad Im,preserve Free 65+ (FLUAD) Unknown Completed [facility] SARS-COV-2 COVID-19 VACCINE - (MODERNA) Unknown Completed [facility] Pneumococcal 13 Conjugate, PCV13 (Prevnar 13) Unknown Completed [facility] TDAP Unknown Completed [facility] Pneumococcal Polysaccharide, PPSV23 (PNEUMOVAX) Unknown Completed [facility] Influenza High Dose Unknown Completed [facility] Influenza Virus Vaccine Unknown Completed [facility] SARS-COV-2 COVID-19 UNSPECIFIED VACCINE Unknown Completed [facility] Influenza Virus Vaccine Quad IM Multi-dose 6+ MO Unknown Completed [facility] Influenza Virus Vaccine,quad Im,preserve Free 65+ (FLUAD) Unknown Completed [facility] SARS-COV-2 COVID-19 VACCINE - (MODERNA) Unknown Completed [facility] Pneumococcal 13 Conjugate, PCV13 (Prevnar 13) Unknown Completed [facility] TDAP Unknown Completed [facility] Pneumococcal Polysaccharide, PPSV23 (PNEUMOVAX) Unknown Completed [facility] Influenza High Dose Unknown Completed [facility] Influenza Virus Vaccine Unknown Completed [facility] SARS-COV-2 COVID-19 UNSPECIFIED VACCINE Unknown Completed [facility] Influenza Virus Vaccine Quad IM Multi-dose 6+ MO Unknown Completed [facility] Influenza Virus Vaccine,quad Im,preserve Free 65+ (FLUAD) Unknown Completed [facility] SARS-COV-2 COVID-19 VACCINE - (MODERNA) Unknown Completed [facility] Pneumococcal 13 Conjugate, PCV13 (Prevnar 13) Unknown Completed [facility] TDAP Unknown Completed [facility] Pneumococcal Polysaccharide, PPSV23 (PNEUMOVAX) Unknown Completed [facility] Influenza High Dose Unknown Completed [facility] Influenza Virus Vaccine Unknown Completed [facility] SARS-COV-2 COVID-19 UNSPECIFIED VACCINE Unknown Completed [facility] Influenza Virus Vaccine Quad IM Multi-dose 6+ MO Unknown Completed [facility] Influenza Virus Vaccine,quad Im,preserve Free 65+ (FLUAD) Unknown Completed [facility] SARS-COV-2 COVID-19 VACCINE - (MODERNA) Unknown Completed [facility] Pneumococcal 13 Conjugate, PCV13 (Prevnar 13) Unknown Completed [facility] TDAP Unknown Completed [facility] Pneumococcal Polysaccharide, PPSV23 (PNEUMOVAX) Unknown Completed [facility] Influenza High Dose Unknown Completed [facility] Influenza Virus Vaccine Unknown Completed [facility] SARS-COV-2 COVID-19 UNSPECIFIED VACCINE Unknown Completed [facility] Influenza Virus Vaccine Quad IM Multi-dose 6+ MO Unknown Completed [facility] Influenza Virus Vaccine,quad Im,preserve Free 65+ (FLUAD) Unknown Completed [facility] SARS-COV-2 COVID-19 VACCINE - (MODERNA) Unknown Completed [facility] Pneumococcal 13 Conjugate, PCV13 (Prevnar 13) Unknown Completed [facility] TDAP Unknown Completed [facility] Pneumococcal Polysaccharide, PPSV23 (PNEUMOVAX) Unknown Completed [facility] Influenza High Dose Unknown Completed [facility] Influenza Virus Vaccine Unknown Completed [facility] SARS-COV-2 COVID-19 UNSPECIFIED VACCINE Unknown Completed [facility] Influenza Virus Vaccine Quad IM Multi-dose 6+ MO Unknown Completed [facility] Influenza Virus Vaccine,quad Im,preserve Free 65+ (FLUAD) Unknown Completed [facility] SARS-COV-2 COVID-19 VACCINE - (MODERNA) Unknown Completed [facility] Pneumococcal 13 Conjugate, PCV13 (Prevnar 13) Unknown Completed [facility] TDAP Unknown Completed [facility] Influenza Virus Vaccine Quad IM Multi-dose 6+ MO Unknown Completed [facility] Influenza Virus Vaccine,quad Im,preserve Free 65+ (FLUAD) Unknown Completed [facility] Pneumococcal Polysaccharide, PPSV23 (PNEUMOVAX) Unknown Completed [facility] Influenza High Dose Unknown Completed [facility] Influenza Virus Vaccine Unknown Completed [facility] SARS-COV-2 COVID-19 UNSPECIFIED VACCINE Unknown Completed [facility] SARS-COV-2 COVID-19 VACCINE - (MODERNA) Unknown Completed [facility] Pneumococcal Polysaccharide, PPSV23 (PNEUMOVAX) Unknown Completed [facility] Pneumococcal 13 Conjugate, PCV13 (Prevnar 13) Unknown Completed [facility] TDAP Unknown Completed [facility] Influenza High Dose Unknown Completed [facility] Influenza Virus Vaccine Unknown Completed [facility] SARS-COV-2 COVID-19 UNSPECIFIED VACCINE Unknown Completed [facility] Influenza Virus Vaccine Quad IM Multi-dose 6+ MO Unknown Completed [facility] Influenza Virus Vaccine,quad Im,preserve Free 65+ (FLUAD) Unknown Completed [facility] SARS-COV-2 COVID-19 VACCINE - (MODERNA) Unknown Completed [facility] Pneumococcal Polysaccharide, PPSV23 (PNEUMOVAX) Unknown Completed [facility] Pneumococcal 13 Conjugate, PCV13 (Prevnar 13) Unknown Completed [facility] TDAP Unknown Completed [facility] Influenza High Dose Unknown Completed [facility] Influenza Virus Vaccine Unknown Completed [facility] SARS-COV-2 COVID-19 UNSPECIFIED VACCINE Unknown Completed [facility] Influenza Virus Vaccine Quad IM Multi-dose 6+ MO Unknown Completed [facility] Influenza Virus Vaccine,quad Im,preserve Free 65+ (FLUAD) Unknown Completed [facility] SARS-COV-2 COVID-19 VACCINE - (MODERNA) Unknown Completed [facility] Pneumococcal Polysaccharide, PPSV23 (PNEUMOVAX) Unknown Completed [facility] Pneumococcal 13 Conjugate, PCV13 (Prevnar 13) Unknown Completed [facility] TDAP Unknown Completed [facility] Influenza High Dose Unknown Completed [facility] Influenza Virus Vaccine Unknown Completed [facility] SARS-COV-2 COVID-19 UNSPECIFIED VACCINE Unknown Completed [facility] Influenza Virus Vaccine Quad IM Multi-dose 6+ MO Unknown Completed [facility] Influenza Virus Vaccine,quad Im,preserve Free 65+ (FLUAD) Unknown Completed [facility] SARS-COV-2 COVID-19 VACCINE - (MODERNA) Unknown Completed [facility] Pneumococcal Polysaccharide, PPSV23 (PNEUMOVAX) Unknown Completed [facility] Pneumococcal 13 Conjugate, PCV13 (Prevnar 13) Unknown Completed [facility] TDAP Unknown Completed [facility] Influenza High Dose Unknown Completed [facility] Influenza Virus Vaccine Unknown Completed [facility] SARS-COV-2 COVID-19 UNSPECIFIED VACCINE Unknown Completed [facility] Influenza Virus Vaccine Quad IM Multi-dose 6+ MO Unknown Completed [facility] Influenza Virus Vaccine,quad Im,preserve Free 65+ (FLUAD) Unknown Completed [facility] SARS-COV-2 COVID-19 VACCINE - (MODERNA) Unknown Completed [facility] Pneumococcal Polysaccharide, PPSV23 (PNEUMOVAX) Unknown Completed [facility] Pneumococcal 13 Conjugate, PCV13 (Prevnar 13) Unknown Completed [facility] TDAP Unknown Completed [facility] Influenza High Dose Unknown Completed [facility] Influenza Virus Vaccine Unknown Completed [facility] SARS-COV-2 COVID-19 UNSPECIFIED VACCINE Unknown Completed [facility] Influenza Virus Vaccine Quad IM Multi-dose 6+ MO Unknown Completed [facility] Influenza Virus Vaccine,quad Im,preserve Free 65+ (FLUAD) Unknown Completed [facility] SARS-COV-2 COVID-19 VACCINE - (MODERNA) Unknown Completed [facility] Pneumococcal Polysaccharide, PPSV23 (PNEUMOVAX) Unknown Completed [facility] Pneumococcal 13 Conjugate, PCV13 (Prevnar 13) Unknown Completed [facility] TDAP Unknown Completed [facility] Influenza High Dose Unknown Completed [facility] Influenza Virus Vaccine Unknown Completed [facility] SARS-COV-2 COVID-19 UNSPECIFIED VACCINE Unknown Completed [facility] Influenza Virus Vaccine Quad IM Multi-dose 6+ MO Unknown Completed [facility] Influenza Virus Vaccine,quad Im,preserve Free 65+ (FLUAD) Unknown Completed [facility] SARS-COV-2 COVID-19 VACCINE - (MODERNA) Unknown [facility] Conjugate, PCV13 (Prevnar 13) Unknown Completed [facility] TDAP Unknown Completed [facility] Influenza Virus Vaccine Quad IM Multi-dose 6+ MO Unknown Completed [facility] Influenza Virus Vaccine,quad Im,preserve Free 65+ (FLUAD) Unknown Completed [facility] Pneumococcal Polysaccharide, PPSV23 (PNEUMOVAX) Unknown Completed [facility] Influenza High Dose Unknown Completed [facility] Influenza Virus Vaccine Unknown Completed [facility] SARS-COV-2 COVID-19 UNSPECIFIED VACCINE Unknown Completed [facility] SARS-COV-2 COVID-19 VACCINE - (MODERNA) Unknown [facility] Pneum[facility] Polys[facility], PPSV23 (PNEUMOVAX) [facility] Conjugate, PCV13 (Prevnar 13) Unknown Completed [facility] TDAP Unknown Completed [facility] Influenza High Dose Unknown Completed [facility] Influenza Virus Vaccine Unknown Completed [facility] SARS-COV-2 COVID-19 UNSPECIFIED VACCINE Unknown Completed [facility] Influenza Virus Vaccine Quad IM Multi-dose 6+ MO Unknown Completed [facility] Influenza Virus Vaccine,quad Im,preserve Free 65+ (FLUAD) Unknown Completed [facility] SARS-COV-2 COVID-19 VACCINE - (MODERNA) Unknown Completed [facility] Pneumococcal Polysaccharide, PPSV23 (PNEUMOVAX) Unknown Completed [facility] Pneumococcal 13 Conjugate, PCV13 (Prevnar 13) Unknown Completed [facility] TDAP Unknown Completed [facility] Influenza High Dose Unknown Completed [facility] Influenza Virus Vaccine Unknown Completed [facility] SARS-COV-2 COVID-19 UNSPECIFIED VACCINE Unknown Completed [facility] Influenza Virus Vaccine Quad IM Multi-dose 6+ MO Unknown Completed [facility] Influenza Virus Vaccine,quad Im,preserve Free 65+ (FLUAD) Unknown Completed [facility] SARS-COV-2 COVID-19 VACCINE - (MODERNA) Unknown Completed [facility] Pneumococcal Polysaccharide, PPSV23 (PNEUMOVAX) Unknown Completed [facility] Pneumococcal 13 Conjugate, PCV13 (Prevnar 13) Unknown Completed [facility] TDAP Unknown Completed [facility] Influenza High Dose Unknown Completed [facility] Influenza Virus Vaccine Unknown Completed [facility] SARS-COV-2 COVID-19 UNSPECIFIED VACCINE Unknown Completed [facility] Influenza Virus Vaccine Quad IM Multi-dose 6+ MO Unknown Completed [facility] Influenza Virus Vaccine,quad Im,preserve Free 65+ (FLUAD) Unknown Completed [facility] SARS-COV-2 COVID-19 VACCINE - (MODERNA) Unknown Completed [facility] Pneumococcal Polysaccharide, PPSV23 (PNEUMOVAX) Unknown Completed [facility] Pneumococcal 13 Conjugate, PCV13 (Prevnar 13) Unknown Completed [facility] TDAP Unknown Completed [facility] Influenza High Dose Unknown Completed [facility] Influenza Virus Vaccine Unknown Completed [facility] SARS-COV-2 COVID-19 UNSPECIFIED VACCINE Unknown Completed [facility] Influenza Virus Vaccine Quad IM Multi-dose 6+ MO Unknown Completed [facility] Influenza Virus Vaccine,quad Im,preserve Free 65+ (FLUAD) Unknown Completed [facility] SARS-COV-2 COVID-19 VACCINE - (MODERNA) Unknown Completed [facility] Pneumococcal Polysaccharide, PPSV23 (PNEUMOVAX) Unknown Completed [facility] Pneumococcal 13 Conjugate, PCV13 (Prevnar 13) Unknown Completed [facility] TDAP Unknown Completed [facility] Influenza High Dose Unknown Completed [facility] Influenza Virus Vaccine Unknown Completed [facility] SARS-COV-2 COVID-19 UNSPECIFIED VACCINE Unknown Completed [facility] Influenza Virus Vaccine Quad IM Multi-dose 6+ MO Unknown Completed [facility] Influenza Virus Vaccine,quad Im,preserve Free 65+ (FLUAD) Unknown Completed [facility] SARS-COV-2 COVID-19 VACCINE - (MODERNA) Unknown Completed [facility] Pneumococcal Polysaccharide, PPSV23 (PNEUMOVAX) Unknown Completed [facility] Pneumococcal 13 Conjugate, PCV13 (Prevnar 13) Unknown Completed [facility] TDAP Unknown Completed [facility] Influenza High Dose Unknown Completed [facility] Influenza Virus Vaccine Unknown Completed [facility] SARS-COV-2 COVID-19 UNSPECIFIED VACCINE Unknown Completed [facility] Influenza Virus Vaccine Quad IM Multi-dose 6+ MO Unknown Completed [facility] Influenza Virus Vaccine,quad Im,preserve Free 65+ (FLUAD) Unknown Completed [facility] SARS-COV-2 COVID-19 VACCINE - (MODERNA) Unknown Completed [facility] Pneumococcal Polysaccharide, PPSV23 (PNEUMOVAX) Unknown Completed [facility] Pneumococcal 13 Conjugate, PCV13 (Prevnar 13) Unknown Completed [facility] TDAP Unknown Completed [facility] Influenza High Dose Unknown Completed [facility] Influenza Virus Vaccine Unknown Completed [facility] SARS-COV-2 COVID-19 UNSPECIFIED VACCINE Unknown Completed [facility] Influenza Virus Vaccine Quad IM Multi-dose 6+ MO Unknown Completed [facility] Influenza Virus Vaccine,quad Im,preserve Free 65+ (FLUAD) Unknown Completed [facility] SARS-COV-2 COVID-19 VACCINE - (MODERNA) Unknown Completed [facility] Pneumococcal Polysaccharide, PPSV23 (PNEUMOVAX) Unknown Completed [facility] Pneumococcal 13 Conjugate, PCV13 (Prevnar 13) Unknown Completed [facility] TDAP Unknown Completed [facility] Influenza High Dose Unknown Completed [facility] Influenza Virus Vaccine Unknown Completed [facility] SARS-COV-2 COVID-19 UNSPECIFIED VACCINE Unknown Completed [facility] Influenza Virus Vaccine Quad IM Multi-dose 6+ MO Unknown Completed [facility] Influenza Virus Vaccine,quad Im,preserve Free 65+ (FLUAD) Unknown Completed [facility] SARS-COV-2 COVID-19 VACCINE - (MODERNA) Unknown Completed [facility] Pneumococcal 13 Conjugate, PCV13 (Prevnar 13) Unknown Completed [facility] TDAP Unknown Completed [facility] Influenza Virus Vaccine Quad IM Multi-dose 6+ MO Unknown Completed [facility] Influenza Virus Vaccine,quad Im,preserve Free 65+ (FLUAD) Unknown Completed [facility] Pneumococcal Polysaccharide, PPSV23 (PNEUMOVAX) Unknown Completed [facility] Influenza High Dose Unknown Completed [facility] Influenza Virus Vaccine Unknown Completed [facility] SARS-COV-2 COVID-19 UNSPECIFIED VACCINE Unknown Completed [facility] SARS-COV-2 COVID-19 VACCINE - (MODERNA) Unknown Completed [facility] Pneumococcal Polysaccharide, PPSV23 (PNEUMOVAX) Unknown Completed [facility] Pneumococcal 13 Conjugate, PCV13 (Prevnar 13) Unknown Completed [facility] TDAP Unknown Completed [facility] Influenza High Dose Unknown Completed [facility] Influenza Virus Vaccine Unknown Completed [facility] SARS-COV-2 COVID-19 UNSPECIFIED VACCINE Unknown Completed [facility] Influenza Virus Vaccine Quad IM Multi-dose 6+ MO Unknown Completed [facility] Influenza Virus Vaccine,quad Im,preserve Free 65+ (FLUAD) Unknown Completed [facility] SARS-COV-2 COVID-19 VACCINE - (MODERNA) Unknown Completed [facility] Pneumococcal Polysaccharide, PPSV23 (PNEUMOVAX) Unknown Completed [facility] Pneumococcal 13 Conjugate, PCV13 (Prevnar 13) Unknown Completed [facility] TDAP Unknown Completed [facility] Influenza High Dose Unknown Completed [facility] Influenza Virus Vaccine Unknown Completed [facility] SARS-COV-2 COVID-19 UNSPECIFIED VACCINE Unknown Completed [facility] Influenza Virus Vaccine Quad IM Multi-dose 6+ MO Unknown Completed [facility] Influenza Virus Vaccine,quad Im,preserve Free 65+ (FLUAD) Unknown Completed [facility] SARS-COV-2 COVID-19 VACCINE - (MODERNA) Unknown Completed [facility] Pneumococcal Polysaccharide, PPSV23 (PNEUMOVAX) Unknown Completed [facility] Pneumococcal 13 Conjugate, PCV13 (Prevnar 13) Unknown Completed [facility] TDAP Unknown Completed [facility] Influenza High Dose Unknown Completed [facility] Influenza Virus Vaccine Unknown Completed [facility] SARS-COV-2 COVID-19 UNSPECIFIED VACCINE Unknown Completed [facility] Influenza Virus Vaccine Quad IM Multi-dose 6+ MO Unknown Completed [facility] Influenza Virus Vaccine,quad Im,preserve Free 65+ (FLUAD) Unknown Completed [facility] SARS-COV-2 COVID-19 VACCINE - (MODERNA) Unknown Completed [facility] Pneumococcal Polysaccharide, PPSV23 (PNEUMOVAX) Unknown Completed [facility] Pneumococcal 13 Conjugate, PCV13 (Prevnar 13) Unknown Completed [facility] TDAP Unknown Completed [facility] Influenza High Dose Unknown Completed [facility] Influenza Virus Vaccine Unknown Completed [facility] SARS-COV-2 COVID-19 UNSPECIFIED VACCINE Unknown Completed [facility] Influenza Virus Vaccine Quad IM Multi-dose 6+ MO Unknown Completed [facility] Influenza Virus Vaccine,quad Im,preserve Free 65+ (FLUAD) Unknown Completed [facility] SARS-COV-2 COVID-19 VACCINE - (MODERNA) Unknown Completed [facility] Pneumococcal Polysaccharide, PPSV23 (PNEUMOVAX) Unknown Completed [facility] Pneumococcal 13 Conjugate, PCV13 (Prevnar 13) Unknown Completed [facility] TDAP Unknown Completed [facility] Influenza High Dose Unknown Completed [facility] Influenza Virus Vaccine Unknown Completed [facility] SARS-COV-2 COVID-19 UNSPECIFIED VACCINE Unknown Completed [facility] Influenza Virus Vaccine Quad IM Multi-dose 6+ MO Unknown Completed [facility] Influenza Virus Vaccine,quad Im,preserve Free 65+ (FLUAD) Unknown Completed [facility] SARS-COV-2 COVID-19 VACCINE - (MODERNA) Unknown [facility] Pneumococcal Polysaccharide, PPSV23 (PNEUMOVAX) Unknown Completed [facility] Pneumococcal 13 Conjugate, PCV13 (Prevnar 13) Unknown Completed [facility] TDAP Unknown Completed [facility] Influenza High Dose Unknown Completed [facility] Influenza Virus Vaccine Unknown Completed [facility] SARS-COV-2 COVID-19 UNSPECIFIED VACCINE Unknown [facility] Vaccine Quad IM Multi-dose 6+ MO Unknown Completed [facility] Influenza Virus Vaccine,quad Im,preserve Free 65+ (FLUAD) Unknown Completed [facility] SARS-COV-2 COVID-19 VACCINE - (MODERNA) Unknown Completed [facility] Pneumococcal 13 Conjugate, PCV13 (Prevnar 13) Unknown Completed [facility] TDAP Unknown Completed [facility] Influenza Virus Vaccine Quad IM Multi-dose 6+ MO Unknown Completed [facility] Influenza Virus Vaccine,quad Im,preserve Free 65+ (FLUAD) Unknown Completed [facility] Pneumococcal Polysaccharide, PPSV23 (PNEUMOVAX) Unknown Completed [facility] Influenza High Dose Unknown Completed [facility] Influenza Virus Vaccine Unknown Completed [facility] SARS-COV-2 COVID-19 UNSPECIFIED VACCINE Unknown Completed [facility] SARS-COV-2 COVID-19 VACCINE - (MODERNA) Unknown Completed [facility] Pneumococcal Polysaccharide, PPSV23 (PNEUMOVAX) Unknown Completed [facility] Pneumococcal 13 Conjugate, PCV13 (Prevnar 13) Unknown Completed [facility] TDAP Unknown Completed [facility] Influenza High Dose Unknown Completed [facility] Influenza Virus Vaccine Unknown Completed [facility] SARS-COV-2 COVID-19 UNSPECIFIED VACCINE Unknown Completed [facility] Influenza Virus Vaccine Quad IM Multi-dose 6+ MO Unknown Completed [facility] Influenza Virus Vaccine,quad Im,preserve Free 65+ (FLUAD) Unknown Completed [facility] SARS-COV-2 COVID-19 VACCINE - (MODERNA) Unknown Completed [facility] Pneumococcal Polysaccharide, PPSV23 (PNEUMOVAX) Unknown Completed [facility] Pneumococcal 13 Conjugate, PCV13 (Prevnar 13) Unknown Completed [facility] TDAP Unknown Completed [facility] Influenza High Dose Unknown Completed [facility] Influenza Virus Vaccine Unknown Completed [facility] SARS-COV-2 COVID-19 UNSPECIFIED VACCINE Unknown Completed [facility] Influenza Virus Vaccine Quad IM Multi-dose 6+ MO Unknown Completed [facility] Influenza Virus Vaccine,quad Im,preserve Free 65+ (FLUAD) Unknown Completed [facility] SARS-COV-2 COVID-19 VACCINE - (MODERNA) Unknown Completed [facility] Pneumococcal Polysaccharide, PPSV23 (PNEUMOVAX) Unknown Completed [facility] Pneumococcal 13 Conjugate, PCV13 (Prevnar 13) Unknown Completed [facility] TDAP Unknown Completed [facility] Influenza High Dose Unknown Completed [facility] Influenza Virus Vaccine Unknown Completed [facility] SARS-COV-2 COVID-19 UNSPECIFIED VACCINE Unknown Completed [facility] Influenza Virus Vaccine Quad IM Multi-dose 6+ MO Unknown Completed [facility] Influenza Virus Vaccine,quad Im,preserve Free 65+ (FLUAD) Unknown Completed [facility] SARS-COV-2 COVID-19 VACCINE - (MODERNA) Unknown Completed [facility] Pneumococcal Polysaccharide, PPSV23 (PNEUMOVAX) Unknown Completed [facility] Pneumococcal 13 Conjugate, PCV13 (Prevnar 13) Unknown Completed [facility] TDAP Unknown Completed [facility] Influenza High Dose Unknown Completed [facility] Influenza Virus Vaccine Unknown Completed [facility] SARS-COV-2 COVID-19 UNSPECIFIED VACCINE Unknown Completed [facility] Influenza Virus Vaccine Quad IM Multi-dose 6+ MO Unknown Completed [facility] Influenza Virus Vaccine,quad Im,preserve Free 65+ (FLUAD) Unknown Completed [facility] SARS-COV-2 COVID-19 VACCINE - (MODERNA) Unknown Completed [facility] Pneumococcal 13 Conjugate, PCV13 (Prevnar 13) Unknown Completed [facility] TDAP Unknown Completed [facility] Influenza Virus Vaccine Quad IM Multi-dose 6+ MO Unknown Completed [facility] Influenza Virus Vaccine,quad Im,preserve Free 65+ (FLUAD) Unknown Completed [facility] Pneumococcal Polysaccharide, PPSV23 (PNEUMOVAX) Unknown Completed [facility] Influenza High Dose Unknown Completed [facility] Influenza Virus Vaccine Unknown Completed [facility] SARS-COV-2 COVID-19 UNSPECIFIED VACCINE Unknown Completed [facility] SARS-COV-2 COVID-19 VACCINE - (MODERNA) Unknown Completed [facility] Pneumococcal Polysaccharide, PPSV23 (PNEUMOVAX) Unknown Completed [facility] Pneumococcal 13 Conjugate, PCV13 (Prevnar 13) Unknown Completed [facility] TDAP Unknown Completed [facility] Influenza High Dose Unknown Completed [facility] Influenza Virus Vaccine Unknown Completed [facility] SARS-COV-2 COVID-19 UNSPECIFIED VACCINE Unknown Completed [facility] Influenza Virus Vaccine Quad IM Multi-dose 6+ MO Unknown Completed [facility] Influenza Virus Vaccine,quad Im,preserve Free 65+ (FLUAD) Unknown Completed [facility] SARS-COV-2 COVID-19 VACCINE - (MODERNA) Unknown Completed [facility] Pneumococcal Polysaccharide, PPSV23 (PNEUMOVAX) Unknown Completed [facility] Pneumococcal 13 Conjugate, PCV13 (Prevnar 13) Unknown Completed [facility] TDAP Unknown Completed [facility] Influenza High Dose Unknown Completed [facility] Influenza Virus Vaccine Unknown Completed [facility] SARS-COV-2 COVID-19 UNSPECIFIED VACCINE Unknown Completed [facility] Influenza Virus Vaccine Quad IM Multi-dose 6+ MO Unknown Completed [facility] Influenza Virus Vaccine,quad Im,preserve Free 65+ (FLUAD) Unknown Completed [facility] SARS-COV-2 COVID-19 VACCINE - (MODERNA) Unknown Completed [facility] Pneumococcal Polysaccharide, PPSV23 (PNEUMOVAX) Unknown Completed [facility] Pneumococcal 13 Conjugate, PCV13 (Prevnar 13) Unknown Completed [facility] TDAP Unknown Completed [facility] Influenza High Dose Unknown Completed [facility] Influenza Virus Vaccine Unknown Completed [facility] SARS-COV-2 COVID-19 UNSPECIFIED VACCINE Unknown Completed [facility] Influenza Virus Vaccine Quad IM Multi-dose 6+ MO Unknown Completed [facility] Influenza Virus Vaccine,quad Im,preserve Free 65+ (FLUAD) Unknown Completed [facility] SARS-COV-2 COVID-19 VACCINE - (MODERNA) Unknown Completed [facility] Pneumococcal 13 Conjugate, PCV13 (Prevnar 13) Unknown Completed [facility] TDAP Unknown Completed [facility] Influenza Virus Vaccine Quad IM Multi-dose 6+ MO Unknown Completed [facility] Influenza Virus Vaccine,quad Im,preserve Free 65+ (FLUAD) Unknown Completed [facility] Pneumococcal Polysaccharide, PPSV23 (PNEUMOVAX) Unknown Completed [facility] Influenza High Dose Unknown Completed [facility] Influenza Virus Vaccine Unknown Completed [facility] SARS-COV-2 COVID-19 UNSPECIFIED VACCINE Unknown Completed [facility] SARS-COV-2 COVID-19 VACCINE - (MODERNA) Unknown Completed [facility] Pneumococcal Polysaccharide, PPSV23 (PNEUMOVAX) Unknown Completed [facility] Pneumococcal 13 Conjugate, PCV13 (Prevnar 13) Unknown Completed [facility] TDAP Unknown Completed [facility] Influenza High Dose Unknown Completed [facility] Influenza Virus Vaccine Unknown Completed [facility] SARS-COV-2 COVID-19 UNSPECIFIED VACCINE Unknown Completed [facility] Influenza Virus Vaccine Quad IM Multi-dose 6+ MO Unknown Completed [facility] Influenza Virus Vaccine,quad Im,preserve Free 65+ (FLUAD) Unknown Completed [facility] SARS-COV-2 COVID-19 VACCINE - (MODERNA) Unknown Completed [facility] Pneumococcal Polysaccharide, PPSV23 (PNEUMOVAX) Unknown Completed [facility] Pneumococcal 13 Conjugate, PCV13 (Prevnar 13) Unknown Completed [facility] TDAP Unknown Completed [facility] Influenza High Dose Unknown Completed [facility] Influenza Virus Vaccine Unknown Completed [facility] SARS-COV-2 COVID-19 UNSPECIFIED VACCINE Unknown Completed [facility] Influenza Virus Vaccine Quad IM Multi-dose 6+ MO Unknown Completed [facility] Influenza Virus Vaccine,quad Im,preserve Free 65+ (FLUAD) Unknown Completed [facility] SARS-COV-2 COVID-19 VACCINE - (MODERNA) Unknown [facility] Pneumococcal Polysaccharide, PPSV23 (PNEUMOVAX) Unknown Completed [facility] Pneumococcal 13 Conjugate, PCV13 (Prevnar 13) Unknown Completed [facility] TDAP Unknown Completed [facility] Influenza High Dose Unknown Completed [facility] Influenza Virus Vaccine Unknown Completed [facility] SARS-COV-2 COVID-19 UNSPECIFIED VACCINE Unknown Completed [facility] Influenza Virus Vaccine Quad IM Multi-dose 6+ MO Unknown Completed [facility] Influenza Virus Vaccine,quad Im,preserve Free 65+ (FLUAD) Unknown Completed [facility] SARS-COV-2 COVID-19 VACCINE - (MODERNA) Unknown Completed [facility] Pneumococcal Unspecified Unknown Completed [facility] Pneumococcal Polysaccharide, PPSV23 (PNEUMOVAX) Unknown Completed [facility] Pneumococcal 13 Conjugate, PCV13 (Prevnar 13) Unknown Completed [facility] TDAP Unknown Completed [facility] Influenza High Dose Unknown Completed [facility] Influenza Virus Vaccine Unknown Completed [facility] SARS-COV-2 COVID-19 UNSPECIFIED VACCINE Unknown [facility] Influ[facility] Virus Vaccine Quad IM Multi-dose 6+ MO Unknown Completed [facility] Influenza Virus Vaccine,quad Im,preserve Free 65+ (FLUAD) Unknown Completed [facility] SARS-COV-2 COVID-19 VACCINE - (MODERNA) Unknown Completed [facility] Pneumococcal Unspecified Unknown Completed [facility] Pneumococcal Polysaccharide, PPSV23 (PNEUMOVAX) Unknown Completed [facility] Pneumococcal 13 Conjugate, PCV13 (Prevnar 13) Unknown Completed [facility] TDAP Unknown Completed [facility] Influenza High Dose Unknown Completed [facility] Influenza Virus Vaccine Unknown Completed [facility] SARS-COV-2 COVID-19 UNSPECIFIED VACCINE Unknown Completed [facility] Influenza Virus Vaccine Quad IM Multi-dose 6+ MO Unknown Completed [facility] Influenza Virus Vaccine,quad Im,preserve Free 65+ (FLUAD) Unknown Completed [facility] SARS-COV-2 COVID-19 VACCINE - (MODERNA) Unknown Completed [facility] Pneumococcal Unspecified Unknown Completed [facility] Pneumococcal Polysaccharide, PPSV23 (PNEUMOVAX) Unknown Completed [facility] Pneumococcal 13 Conjugate, PCV13 (Prevnar 13) Unknown Completed [facility] TDAP Unknown Completed [facility] Influenza High Dose Unknown Completed [facility] Influenza Virus Vaccine Unknown Completed [facility] SARS-COV-2 COVID-19 UNSPECIFIED VACCINE Unknown Completed [facility] Influenza Virus Vaccine Quad IM Multi-dose 6+ MO Unknown Completed [facility] Influenza Virus Vaccine,quad Im,preserve Free 65+ (FLUAD) Unknown Completed [facility] SARS-COV-2 COVID-19 VACCINE - (MODERNA) Unknown Completed [facility] Pneumococcal Unspecified Unknown Completed [facility] Pneumococcal Polysaccharide, PPSV23 (PNEUMOVAX) Unknown Completed [facility] Pneumococcal 13 Conjugate, PCV13 (Prevnar 13) Unknown Completed [facility] TDAP Unknown Completed [facility] Influenza High Dose Unknown Completed [facility] Influenza Virus Vaccine Unknown Completed [facility] SARS-COV-2 COVID-19 UNSPECIFIED VACCINE Unknown Completed [facility] Influenza Virus Vaccine Quad IM Multi-dose 6+ MO Unknown Completed [facility] Influenza Virus Vaccine,quad Im,preserve Free 65+ (FLUAD) Unknown Completed [facility] SARS-COV-2 COVID-19 VACCINE - (MODERNA) Unknown Completed [facility] Pneumococcal Unspecified Unknown Completed [facility] Pneumococcal Polysaccharide, PPSV23 (PNEUMOVAX) Unknown Completed [facility] Pneumococcal 13 Conjugate, PCV13 (Prevnar 13) Unknown Completed [facility] TDAP Unknown Completed [facility] Influenza High Dose Unknown Completed [facility] Influenza Virus Vaccine Unknown Completed [facility] SARS-COV-2 COVID-19 UNSPECIFIED VACCINE Unknown Completed [facility] Influenza Virus Vaccine Quad IM Multi-dose 6+ MO Unknown Completed [facility] Influenza Virus Vaccine,quad Im,preserve Free 65+ (FLUAD) Unknown Completed [facility] SARS-COV-2 COVID-19 VACCINE - (MODERNA) Unknown Completed [facility] Pneumococcal Unspecified Unknown Completed [facility] Pneumococcal Polysaccharide, PPSV23 (PNEUMOVAX) Unknown Completed [facility] Pneumococcal 13 Conjugate, PCV13 (Prevnar 13) Unknown Completed [facility] TDAP Unknown Completed [facility] Influenza High Dose Unknown Completed [facility] Influenza Virus Vaccine Unknown Completed [facility] SARS-COV-2 COVID-19 UNSPECIFIED VACCINE Unknown Completed [facility] Influenza Virus Vaccine Quad IM Multi-dose 6+ MO Unknown Completed [facility] Influenza Virus Vaccine,quad Im,preserve Free 65+ (FLUAD) Unknown Completed [facility] SARS-COV-2 COVID-19 VACCINE - (MODERNA) Unknown [facility] Pneumococcal Unspecified Unknown Completed [facility] Pneumococcal Polysaccharide, PPSV23 (PNEUMOVAX) Unknown Completed [facility] Pneumococcal 13 Conjugate, PCV13 (Prevnar 13) Unknown Completed [facility] TDAP Unknown Completed [facility] Influenza High Dose Unknown Completed [facility] Influenza Virus Vaccine Unknown Completed [facility] SARS-COV-2 COVID-19 UNSPECIFIED VACCINE Unknown Completed [facility] Influenza Virus Vaccine Quad IM Multi-dose 6+ MO Unknown Completed [facility] Influenza Virus Vaccine,quad Im,preserve Free 65+ (FLUAD) Unknown Completed [facility] SARS-COV-2 COVID-19 VACCINE - (MODERNA) Unknown Completed [facility] Pneumococcal Unspecified Unknown Completed [facility] Pneumococcal Polysaccharide, PPSV23 (PNEUMOVAX) Unknown Completed [facility] Pneumococcal 13 Conjugate, PCV13 (Prevnar 13) Unknown Completed [facility] TDAP Unknown Completed [facility] Influenza High Dose Unknown Completed [facility] Influenza Virus Vaccine Unknown Completed [facility] SARS-COV-2 COVID-19 UNSPECIFIED VACCINE Unknown Completed [facility] Influenza Virus Vaccine Quad IM Multi-dose 6+ MO Unknown Completed [facility] Influenza Virus Vaccine,quad Im,preserve Free 65+ (FLUAD) Unknown Completed [facility] SARS-COV-2 COVID-19 VACCINE - (MODERNA) Unknown Completed [facility] Pneumococcal Unspecified Unknown Completed [facility] Pneumococcal Polysaccharide, PPSV23 (PNEUMOVAX) Unknown Completed [facility] Pneumococcal 13 Conjugate, PCV13 (Prevnar 13) Unknown Completed [facility] TDAP Unknown Completed [facility] Influenza High Dose Unknown Completed [facility] Influenza Virus Vaccine Unknown Completed [facility] SARS-COV-2 COVID-19 UNSPECIFIED VACCINE Unknown Completed [facility] Influenza Virus Vaccine Quad IM Multi-dose 6+ MO Unknown Completed [facility] Influenza Virus Vaccine,quad Im,preserve Free 65+ (FLUAD) Unknown Completed [facility] SARS-COV-2 COVID-19 VACCINE - (MODERNA) Unknown Completed [facility] Pneumococcal Unspecified Unknown Completed [facility] Pneumococcal 13 Conjugate, PCV13 (Prevnar 13) Unknown Completed [facility] TDAP Unknown Completed [facility] Influenza Virus Vaccine Quad IM Multi-dose 6+ MO Unknown Completed [facility] Influenza Virus Vaccine,quad Im,preserve Free 65+ (FLUAD) Unknown Completed [facility] Pneumococcal Polysaccharide, PPSV23 (PNEUMOVAX) Unknown Completed [facility] Influenza High Dose Unknown Completed [facility] Influenza Virus Vaccine Unknown Completed [facility] SARS-COV-2 COVID-19 UNSPECIFIED VACCINE Unknown Completed [facility] SARS-COV-2 COVID-19 VACCINE - (MODERNA) Unknown Completed [facility] Pneumococcal Unspecified Unknown Completed [facility] Pneumococcal Polysaccharide, PPSV23 (PNEUMOVAX) Unknown Completed [facility] Pneumococcal 13 Conjugate, PCV13 (Prevnar 13) Unknown Completed [facility] TDAP Unknown Completed [facility] Influenza High Dose Unknown Completed [facility] Influenza Virus Vaccine Unknown Completed [facility] SARS-COV-2 COVID-19 UNSPECIFIED VACCINE Unknown Completed [facility] Influenza Virus Vaccine Quad IM Multi-dose 6+ MO Unknown Completed [facility] Influenza Virus Vaccine,quad Im,preserve Free 65+ (FLUAD) Unknown Completed [facility] SARS-COV-2 COVID-19 VACCINE - (MODERNA) Unknown Completed [facility] Pneumococcal Unspecified Unknown Completed [facility] Pneumococcal Polysaccharide, PPSV23 (PNEUMOVAX) Unknown Completed [facility] Pneumococcal 13 Conjugate, PCV13 (Prevnar 13) Unknown Completed [facility] TDAP Unknown Completed [facility] Influenza High Dose Unknown Completed [facility] Influenza Virus Vaccine Unknown Completed [facility] SARS-COV-2 COVID-19 UNSPECIFIED VACCINE Unknown Completed [facility] Influenza Virus Vaccine Quad IM Multi-dose 6+ MO Unknown Completed [facility] Influenza Virus Vaccine,quad Im,preserve Free 65+ (FLUAD) Unknown Completed [facility] SARS-COV-2 COVID-19 VACCINE - (MODERNA) Unknown Completed [facility] Pneumococcal Unspecified Unknown Completed [facility] Pneumococcal 13 Conjugate, PCV13 (Prevnar 13) Unknown Completed [facility] TDAP Unknown Completed [facility] Influenza High Dose Unknown Completed [facility] Influenza Virus Vaccine Unknown Completed [facility] SARS-COV-2 COVID-19 UNSPECIFIED VACCINE Unknown Completed [facility] Influenza Virus Vaccine Quad IM Multi-dose 6+ MO Unknown Completed [facility] Pneumococcal Polysaccharide, PPSV23 (PNEUMOVAX) Unknown Completed [facility] Influenza Virus Vaccine,quad Im,preserve Free 65+ (FLUAD) Unknown Completed [facility] SARS-COV-2 COVID-19 VACCINE - (MODERNA) Unknown Completed [facility] Pneumococcal Unspecified Unknown Completed [facility] Pneumococcal 13 Conjugate, PCV13 (Prevnar 13) Unknown Completed [facility] TDAP Unknown Completed [facility] Influenza Virus Vaccine Quad IM Multi-dose 6+ MO Unknown Completed [facility] Influenza Virus Vaccine,quad Im,preserve Free 65+ (FLUAD) Unknown Completed [facility] Pneumococcal Polysaccharide, PPSV23 (PNEUMOVAX) Unknown Completed [facility] Influenza High Dose Unknown Completed [facility] Influenza Virus Vaccine Unknown Completed [facility] SARS-COV-2 COVID-19 UNSPECIFIED VACCINE Unknown Com[facility] SARS-COV-2 COVID-19 VACCINE - (MODERNA) Unknown Completed [facility] Pneumococcal Unspecified Unknown Completed [facility] Pneumococcal Polysaccharide, PPSV23 (PNEUMOVAX) Unknown Completed [facility] Pneumococcal 13 Conjugate, PCV13 (Prevnar 13) Unknown Completed [facility] TDAP Unknown Completed [facility] Influenza High Dose Unknown Completed [facility] Influenza Virus Vaccine Unknown Completed [facility] SARS-COV-2 COVID-19 UNSPECIFIED VACCINE Unknown Completed [facility] Influenza Virus Vaccine Quad IM Multi-dose 6+ MO Unknown Completed [facility] Influenza Virus Vaccine,quad Im,preserve Free 65+ (FLUAD) Unknown Completed [facility] SARS-COV-2 COVID-19 VACCINE - (MODERNA) Unknown Completed [facility] Pneumococcal Unspecified Unknown Completed [facility] Pneumococcal Polysaccharide, PPSV23 (PNEUMOVAX) Unknown Completed [facility] Pneumococcal 13 Conjugate, PCV13 (Prevnar 13) Unknown Completed [facility] TDAP Unknown Completed [facility] Influenza High Dose Unknown Completed [facility] Influenza Virus Vaccine Unknown Completed [facility] SARS-COV-2 COVID-19 UNSPECIFIED VACCINE Unknown Completed [facility] Influenza Virus Vaccine Quad IM Multi-dose 6+ MO Unknown Completed [facility] Influenza Virus Vaccine,quad Im,preserve Free 65+ (FLUAD) Unknown Completed [facility] SARS-COV-2 COVID-19 VACCINE - (MODERNA) Unknown Completed [facility] Pneumococcal Unspecified Unknown Completed [facility] Pneumococcal Polysaccharide, PPSV23 (PNEUMOVAX) Unknown Completed [facility] Pneumococcal 13 Conjugate, PCV13 (Prevnar 13) Unknown Completed [facility] TDAP Unknown Completed [facility] Influenza High Dose Unknown Completed [facility] Influenza Virus Vaccine Unknown Completed [facility] SARS-COV-2 COVID-19 UNSPECIFIED VACCINE Unknown Completed [facility] Influenza Virus Vaccine Quad IM Multi-dose 6+ MO Unknown Completed [facility] Influenza Virus Vaccine,quad Im,preserve Free 65+ (FLUAD) Unknown Completed [facility] SARS-COV-2 COVID-19 VACCINE - (MODERNA) Unknown Completed [facility] Pneumococcal Unspecified Unknown Completed [facility] Pneumococcal 13 Conjugate, PCV13 (Prevnar 13) Unknown Completed [facility] TDAP Unknown Completed [facility] Influenza Virus Vaccine Quad IM Multi-dose 6+ MO Unknown Completed [facility] Influenza Virus Vaccine,quad Im,preserve Free 65+ (FLUAD) Unknown Completed [facility] Pneumococcal Polysaccharide, PPSV23 (PNEUMOVAX) Unknown Completed [facility] Pneumococcal 13 Conjugate, PCV13 (Prevnar 13) Unknown Completed [facility] TDAP Unknown Completed [facility] Influenza High Dose Unknown Completed [facility] Influenza Virus Vaccine Unknown Completed [facility] SARS-COV-2 COVID-19 UNSPECIFIED VACCINE Unknown Com[facility] Influenza Virus Vaccine Quad IM Multi-dose 6+ MO Unknown Completed [facility] Influenza Virus Vaccine,quad Im,preserve Free 65+ (FLUAD) Unknown Completed [facility] SARS-COV-2 COVID-19 VACCINE - (MODERNA) Unknown Completed [facility] Pneumococcal Unspecified Unknown Completed [facility] Pneumococcal Polysaccharide, PPSV23 (PNEUMOVAX) Unknown Completed [facility] Pneumococcal 13 Conjugate, PCV13 (Prevnar 13) Unknown Completed [facility] TDAP Unknown Completed [facility] Influenza High Dose Unknown Completed [facility] Influenza Virus Vaccine Unknown Completed [facility] SARS-COV-2 COVID-19 UNSPECIFIED VACCINE Unknown Completed [facility] Influenza Virus Vaccine Quad IM Multi-dose 6+ MO Unknown Completed [facility] Influenza Virus Vaccine,quad Im,preserve Free 65+ (FLUAD) Unknown Completed [facility] SARS-COV-2 COVID-19 VACCINE - (MODERNA) Unknown Completed [facility] Pneumococcal Unspecified Unknown Completed [facility] Pneumococcal Polysaccharide, PPSV23 (PNEUMOVAX) Unknown Completed [facility] Pneumococcal 13 Conjugate, PCV13 (Prevnar 13) Unknown Completed [facility] TDAP Unknown Completed [facility] Influenza High Dose Unknown Completed [facility] Influenza Virus Vaccine Unknown Completed [facility] SARS-COV-2 COVID-19 UNSPECIFIED VACCINE Unknown Com[facility] Influenza Virus Vaccine Quad IM Multi-dose 6+ MO Unknown Completed [facility] Influenza Virus Vaccine,quad Im,preserve Free 65+ (FLUAD) Unknown Completed [facility] SARS-COV-2 COVID-19 VACCINE - (MODERNA) Unknown Completed [facility] Pneumococcal Unspecified Unknown Completed [facility] Pneumococcal Polysaccharide, PPSV23 (PNEUMOVAX) Unknown Completed [facility] Pneumococcal 13 Conjugate, PCV13 (Prevnar 13) Unknown Completed [facility] TDAP Unknown Completed [facility] Influenza High Dose Unknown Completed [facility] Influenza Virus Vaccine Unknown Completed [facility] SARS-COV-2 COVID-19 UNSPECIFIED VACCINE Unknown Completed [facility] Influenza Virus Vaccine Quad IM Multi-dose 6+ MO Unknown Completed [facility] Influenza Virus Vaccine,quad Im,preserve Free 65+ (FLUAD) Unknown Completed [facility] SARS-COV-2 COVID-19 VACCINE - (MODERNA) Unknown Com[facility] Pneumococcal Unspecified Unknown Completed [facility] Pneumococcal Polysaccharide, PPSV23 (PNEUMOVAX) [facility] Com[facility] Influenza Virus Vaccine Unknown Completed [facility] SARS-COV-2 COVID-19 UNSPECIFIED VACCINE Unknown [facility] SARS-COV-2 COVID-19 VACCINE - (MODERNA) Unknown Com[facility] Pneumococcal Unspecified Unknown Completed [facility] Pneumococcal Polysaccharide, PPSV23 (PNEUMOVAX) Unknown Completed [facility] Pneumococcal 13 Conjugate, PCV13 (Prevnar 13) Unknown Completed [facility] TDAP Unknown Completed [facility] Influenza High Dose Unknown Completed [facility] Influenza Virus Vaccine Unknown Completed [facility] SARS-COV-2 COVID-19 UNSPECIFIED VACCINE Unknown Completed [facility] Influenza Virus Vaccine Quad IM Multi-dose 6+ MO Unknown Completed [facility] Influenza Virus Vaccine,quad Im,preserve Free 65+ (FLUAD) Unknown Completed [facility] SARS-COV-2 COVID-19 VACCINE - (MODERNA) Unknown Com[facility] Pneumococcal Unspecified Unknown Completed [facility] Pneumococcal Polysaccharide, PPSV23 (PNEUMOVAX) Unknown Completed [facility] Pneumococcal 13 Conjugate, PCV13 (Prevnar 13) Unknown Completed [facility] TDAP Unknown Completed [facility] Influenza High Dose Unknown Completed [facility] Influenza Virus Vaccine Unknown Completed [facility] SARS-COV-2 COVID-19 UNSPECIFIED VACCINE Unknown Completed [facility] Influenza Virus Vaccine Quad IM Multi-dose 6+ MO Unknown Completed [facility] Influenza Virus Vaccine,quad Im,preserve Free 65+ (FLUAD) Unknown Completed [facility] SARS-COV-2 COVID-19 VACCINE - (MODERNA) Unknown Completed [facility] Pneumococcal Unspecified Unknown Completed [facility] Pneumococcal 13 Conjugate, PCV13 (Prevnar 13) Unknown Completed [facility] TDAP Unknown Completed [facility] Influenza Virus Vaccine Quad IM Multi-dose 6+ MO Unknown Completed [facility] Influenza Virus Vaccine,quad Im,preserve Free 65+ (FLUAD) Unknown Completed [facility] Pneumococcal Polysaccharide, PPSV23 (PNEUMOVAX) Unknown Completed [facility] Influenza High Dose Unknown Completed [facility] Influenza Virus Vaccine Unknown Completed [facility] SARS-COV-2 COVID-19 UNSPECIFIED VACCINE Unknown Completed [facility] SARS-COV-2 COVID-19 VACCINE - (MODERNA) Unknown Completed [facility] Pneumococcal Unspecified Unknown Completed [facility] Pneumococcal Polysaccharide, PPSV23 (PNEUMOVAX) Unknown Completed [facility] Pneumococcal 13 Conjugate, PCV13 (Prevnar 13) Unknown Completed [facility] TDAP Unknown Completed [facility] Influenza High Dose Unknown Completed [facility] Influenza Virus Vaccine Unknown Completed [facility] SARS-COV-2 COVID-19 UNSPECIFIED VACCINE Unknown Completed [facility] Influenza Virus Vaccine Quad IM Multi-dose 6+ MO Unknown Completed [facility] Influenza Virus Vaccine,quad Im,preserve Free 65+ (FLUAD) Unknown Completed [facility] SARS-COV-2 COVID-19 VACCINE - (MODERNA) Unknown Completed [facility] Pneumococcal Unspecified Unknown Completed [facility] Pneumococcal Polysaccharide, PPSV23 (PNEUMOVAX) Unknown Completed [facility] Pneumococcal 13 Conjugate, PCV13 (Prevnar 13) Unknown Completed [facility] TDAP Unknown Completed [facility] Influenza High Dose Unknown Completed [facility] Influenza Virus Vaccine Unknown Completed [facility] SARS-COV-2 COVID-19 UNSPECIFIED VACCINE Unknown Completed [facility] Influenza Virus Vaccine Quad IM Multi-dose 6+ MO Unknown Completed [facility] Influenza Virus Vaccine,quad Im,preserve Free 65+ (FLUAD) Unknown Completed [facility] SARS-COV-2 COVID-19 VACCINE - (MODERNA) Unknown Completed [facility] Pneumococcal Unspecified Unknown Completed [facility] Pneumococcal Polysaccharide, PPSV23 (PNEUMOVAX) Unknown Completed [facility] Pneumococcal 13 Conjugate, PCV13 (Prevnar 13) Unknown Completed [facility] TDAP Unknown Completed [facility] Influenza High Dose Unknown Completed [facility] Influenza Virus Vaccine Unknown Completed [facility] SARS-COV-2 COVID-19 UNSPECIFIED VACCINE Unknown Completed [facility] Influenza Virus Vaccine Quad IM Multi-dose 6+ MO Unknown Completed [facility] Influenza Virus Vaccine,quad Im,preserve Free 65+ (FLUAD) Unknown Completed [facility] SARS-COV-2 COVID-19 VACCINE - (MODERNA) Unknown Completed [facility] Pneumococcal Unspecified Unknown Completed [facility] Pneumococcal Polysaccharide, PPSV23 (PNEUMOVAX) Unknown Completed [facility] Pneumococcal 13 Conjugate, PCV13 (Prevnar 13) Unknown Completed [facility] TDAP Unknown Completed [facility] Influenza High Dose Unknown Completed [facility] Influenza Virus Vaccine Unknown Completed [facility] SARS-COV-2 COVID-19 UNSPECIFIED VACCINE Unknown Completed [facility] Influenza Virus Vaccine Quad IM Multi-dose 6+ MO Unknown Completed [facility] Influenza Virus Vaccine,quad Im,preserve Free 65+ (FLUAD) Unknown Completed [facility] SARS-COV-2 COVID-19 VACCINE - (MODERNA) Unknown Completed [facility] Pneumococcal Unspecified Unknown Completed [facility] Pneumococcal Polysaccharide, PPSV23 (PNEUMOVAX) Unknown Completed [facility] Pneumococcal 13 Conjugate, PCV13 (Prevnar 13) Unknown Completed [facility] TDAP Unknown Completed [facility] Influenza High Dose Unknown Completed [facility] Influenza Virus Vaccine Unknown Completed [facility] SARS-COV-2 COVID-19 UNSPECIFIED VACCINE Unknown Completed [facility] Influenza Virus Vaccine Quad IM Multi-dose 6+ MO Unknown Completed [facility] Influenza Virus Vaccine,quad Im,preserve Free 65+ (FLUAD) Unknown Completed [facility] SARS-COV-2 COVID-19 VACCINE - (MODERNA) Unknown Completed [facility] Pneumococcal Unspecified Unknown Completed [facility] Pneumococcal Polysaccharide, PPSV23 (PNEUMOVAX) Unknown Completed [facility] Pneumococcal 13 Conjugate, PCV13 (Prevnar 13) Unknown Completed [facility] TDAP Unknown Completed [facility] Influenza High Dose Unknown Completed [facility] Influenza Virus Vaccine Unknown Completed [facility] SARS-COV-2 COVID-19 UNSPECIFIED VACCINE Unknown [facility] Influ[facility] Vaccine Quad IM Multi-dose 6+ MO Unknown Completed [facility] Influenza Virus Vaccine,quad Im,preserve Free 65+ (FLUAD) Unknown Completed [facility] SARS-COV-2 COVID-19 VACCINE - (MODERNA) Unknown Completed [facility] Pneumococcal Unspecified Unknown Completed [facility] Pneumococcal Polysaccharide, PPSV23 (PNEUMOVAX) Unknown Completed [facility] Pneumococcal 13 Conjugate, PCV13 (Prevnar 13) Unknown Completed [facility] TDAP Unknown Completed [facility] Influenza High Dose Unknown Completed [facility] Influenza Virus Vaccine Unknown Completed [facility] SARS-COV-2 COVID-19 UNSPECIFIED VACCINE Unknown Completed [facility] Influenza Virus Vaccine Quad IM Multi-dose 6+ MO Unknown Completed [facility] Influenza Virus Vaccine,quad Im,preserve Free 65+ (FLUAD) Unknown Completed [facility] SARS-COV-2 COVID-19 VACCINE - (MODERNA) Unknown Completed [facility] Pneumococcal Unspecified Unknown Completed [facility] Pneumococcal Polysaccharide, PPSV23 (PNEUMOVAX) Unknown Completed [facility] Pneumococcal 13 Conjugate, PCV13 (Prevnar 13) Unknown Completed [facility] TDAP Unknown Completed [facility] Influenza High Dose Unknown Completed [facility] Influenza Virus Vaccine Unknown Completed [facility] SARS-COV-2 COVID-19 UNSPECIFIED VACCINE Unknown Completed [facility] Influenza Virus Vaccine Quad IM Multi-dose 6+ MO Unknown Completed [facility] Influenza Virus Vaccine,quad Im,preserve Free 65+ (FLUAD) Unknown Completed [facility] SARS-COV-2 COVID-19 VACCINE - (MODERNA) Unknown Completed [facility] Pneumococcal Unspecified Unknown Completed [facility] Pneumococcal Polysaccharide, PPSV23 (PNEUMOVAX) Unknown Completed [facility] Pneumococcal 13 Conjugate, PCV13 (Prevnar 13) Unknown Completed [facility] TDAP Unknown Completed [facility] Influenza High Dose Unknown Completed [facility] Influenza Virus Vaccine Unknown Completed [facility] SARS-COV-2 COVID-19 UNSPECIFIED VACCINE Unknown Completed [facility] Influenza Virus Vaccine Quad IM Multi-dose 6+ MO Unknown Completed [facility] Influenza Virus Vaccine,quad Im,preserve Free 65+ (FLUAD) Unknown Completed [facility] SARS-COV-2 COVID-19 VACCINE - (MODERNA) Unknown Completed [facility] Pneumococcal Unspecified Unknown Completed [facility] Pneumococcal Polysaccharide, PPSV23 (PNEUMOVAX) Unknown Completed [facility] Pneumococcal 13 Conjugate, PCV13 (Prevnar 13) Unknown Completed [facility] TDAP Unknown Completed [facility] Influenza High Dose Unknown Completed [facility] Influenza Virus Vaccine Unknown Completed [facility] SARS-COV-2 COVID-19 UNSPECIFIED VACCINE Unknown [facility] Influ[facility] Virus Vaccine Quad IM Multi-dose 6+ MO Unknown Completed [facility] Influenza Virus Vaccine,quad Im,preserve Free 65+ (FLUAD) Unknown Completed [facility] SARS-COV-2 COVID-19 VACCINE - (MODERNA) Unknown Completed [facility] Pneumococcal Unspecified Unknown Completed [facility] Pneumococcal Polysaccharide, PPSV23 (PNEUMOVAX) Unknown Completed [facility] Pneumococcal 13 Conjugate, PCV13 (Prevnar 13) Unknown Completed [facility] TDAP Unknown Completed [facility] Influenza High Dose Unknown Completed [facility] Influenza Virus Vaccine Unknown Completed [facility] SARS-COV-2 COVID-19 UNSPECIFIED VACCINE Unknown Completed [facility] Influenza Virus Vaccine Quad IM Multi-dose 6+ MO Unknown Completed [facility] Influenza Virus Vaccine,quad Im,preserve Free 65+ (FLUAD) Unknown Completed [facility] SARS-COV-2 COVID-19 VACCINE - (MODERNA) Unknown Completed [facility] Pneumococcal Unspecified Unknown Completed [facility] Pneumococcal Polysaccharide, PPSV23 (PNEUMOVAX) Unknown Completed [facility] Pneumococcal 13 Conjugate, PCV13 (Prevnar 13) Unknown Completed [facility] TDAP Unknown Completed [facility] Influenza High Dose Unknown Completed [facility] Influenza Virus Vaccine Unknown Completed [facility] SARS-COV-2 COVID-19 UNSPECIFIED VACCINE Unknown Completed [facility] Influenza Virus Vaccine Quad IM Multi-dose 6+ MO Unknown Completed [facility] Influenza Virus Vaccine,quad Im,preserve Free 65+ (FLUAD) Unknown Completed [facility] SARS-COV-2 COVID-19 VACCINE - (MODERNA) Unknown Completed [facility] Pneumococcal Unspecified Unknown Completed [facility] Pneumococcal Polysaccharide, PPSV23 (PNEUMOVAX) Unknown Completed [facility] Pneumococcal 13 Conjugate, PCV13 (Prevnar 13) Unknown Completed [facility] TDAP Unknown Completed [facility] Influenza High Dose Unknown Completed [facility] Influenza Virus Vaccine Unknown Completed [facility] SARS-COV-2 COVID-19 UNSPECIFIED VACCINE Unknown Completed [facility] Influenza Virus Vaccine Quad IM Multi-dose 6+ MO Unknown Completed [facility] Influenza Virus Vaccine,quad Im,preserve Free 65+ (FLUAD) Unknown Completed [facility] SARS-COV-2 COVID-19 VACCINE - (MODERNA) Unknown Completed [facility] Pneumococcal Unspecified Unknown Completed [facility] Pneumococcal Polysaccharide, PPSV23 (PNEUMOVAX) Unknown Completed [facility] Pneumococcal 13 Conjugate, PCV13 (Prevnar 13) Unknown Completed [facility] TDAP Unknown Completed [facility] Influenza High Dose Unknown Completed [facility] Influenza Virus Vaccine Unknown Completed [facility] SARS-COV-2 COVID-19 UNSPECIFIED VACCINE Unknown Completed [facility] Influenza Virus Vaccine Quad IM Multi-dose 6+ MO Unknown Completed [facility] Influenza Virus Vaccine,quad Im,preserve Free 65+ (FLUAD) Unknown Completed [facility] SARS-COV-2 COVID-19 VACCINE - (MODERNA) Unknown Completed [facility] Pneumococcal Unspecified Unknown Completed [facility] Pneumococcal Polysaccharide, PPSV23 (PNEUMOVAX) Unknown [facility] Pneumococcal 13 Conjugate, PCV13 (Prevnar 13) Unknown Completed [facility] TDAP Unknown Completed [facility] Influenza High Dose Unknown Completed [facility] Influenza Virus Vaccine Unknown Completed [facility] SARS-COV-2 COVID-19 UNSPECIFIED VACCINE Unknown Completed [facility] Influenza Virus Vaccine Quad IM Multi-dose 6+ MO Unknown Completed [facility] Influenza Virus Vaccine,quad Im,preserve Free 65+ (FLUAD) Unknown Completed [facility] SARS-COV-2 COVID-19 VACCINE - (MODERNA) Unknown Completed [facility] Pneumococcal Unspecified Unknown Completed [facility] Pneumococcal Polysaccharide, PPSV23 (PNEUMOVAX) Unknown Completed [facility] Pneumococcal 13 Conjugate, PCV13 (Prevnar 13) Unknown Completed [facility] TDAP Unknown Completed [facility] Influenza High Dose Unknown Completed [facility] Influenza Virus Vaccine Unknown Completed [facility] SARS-COV-2 COVID-19 UNSPECIFIED VACCINE Unknown Completed [facility] Influenza Virus Vaccine Quad IM Multi-dose 6+ MO Unknown Completed [facility] Influenza Virus Vaccine,quad Im,preserve Free 65+ (FLUAD) Unknown Completed [facility] SARS-COV-2 COVID-19 VACCINE - (MODERNA) Unknown Completed [facility] Pneumococcal Unspecified Unknown Completed [facility] Pneumococcal Polysaccharide, PPSV23 (PNEUMOVAX) Unknown Completed [facility] Pneumococcal 13 Conjugate, PCV13 (Prevnar 13) Unknown Completed [facility] TDAP Unknown Completed [facility] Influenza High Dose Unknown Completed [facility] Influenza Virus Vaccine Unknown Completed [facility] SARS-COV-2 COVID-19 UNSPECIFIED VACCINE Unknown Completed [facility] Influenza Virus Vaccine Quad IM Multi-dose 6+ MO Unknown Completed [facility] Influenza Virus Vaccine,quad Im,preserve Free 65+ (FLUAD) Unknown Completed [facility] SARS-COV-2 COVID-19 VACCINE - (MODERNA) Unknown Completed [facility] Pneumococcal Unspecified Unknown Completed [facility] Pneumococcal Polysaccharide, PPSV23 (PNEUMOVAX) Unknown Completed [facility] Pneumococcal 13 Conjugate, PCV13 (Prevnar 13) Unknown Completed [facility] TDAP Unknown Completed [facility] Influenza High Dose Unknown Completed [facility] Influenza Virus Vaccine Unknown Completed [facility] SARS-COV-2 COVID-19 UNSPECIFIED VACCINE Unknown Completed [facility] Influenza Virus Vaccine Quad IM Multi-dose 6+ MO Unknown Completed [facility] Influenza Virus Vaccine,quad Im,preserve Free 65+ (FLUAD) Unknown Completed [facility] SARS-COV-2 COVID-19 VACCINE - (MODERNA) Unknown Completed [facility] Pneumococcal Unspecified Unknown Completed [facility] Pneumococcal Polysaccharide, PPSV23 (PNEUMOVAX) Unknown Completed [facility] Pneumococcal 13 Conjugate, PCV13 (Prevnar 13) Unknown Completed [facility] TDAP Unknown Completed [facility] Influenza High Dose Unknown Completed [facility] Influenza Virus Vaccine Unknown Completed [facility] SARS-COV-2 COVID-19 UNSPECIFIED VACCINE Unknown Completed [facility] Influenza Virus Vaccine Quad IM Multi-dose 6+ MO Unknown Completed [facility] Influenza Virus Vaccine,quad Im,preserve Free 65+ (FLUAD) Unknown Completed [facility] SARS-COV-2 COVID-19 VACCINE - (MODERNA) Unknown Completed [facility] Pneumococcal Unspecified Unknown Completed [facility] Pneumococcal Polysaccharide, PPSV23 (PNEUMOVAX) Unknown Completed [facility] Pneumococcal 13 Conjugate, PCV13 (Prevnar 13) Unknown Completed [facility] TDAP Unknown Completed [facility] Influenza High Dose Unknown Completed [facility] Influenza Virus Vaccine Unknown Completed [facility] SARS-COV-2 COVID-19 UNSPECIFIED VACCINE Unknown Com[facility] Influenza Virus Vaccine Quad IM Multi-dose 6+ MO Unknown Completed [facility] Influenza Virus Vaccine,quad Im,preserve Free 65+ (FLUAD) Unknown Completed [facility] SARS-COV-2 COVID-19 VACCINE - (MODERNA) Unknown Completed [facility] Pneumococcal Unspecified Unknown Completed [facility] Pneumococcal Polysaccharide, PPSV23 (PNEUMOVAX) Unknown Completed [facility] Pneumococcal 13 Conjugate, PCV13 (Prevnar 13) Unknown Completed [facility] TDAP Unknown Completed [facility] Influenza High Dose Unknown Completed [facility] Influenza Virus Vaccine Unknown Completed [facility] SARS-COV-2 COVID-19 UNSPECIFIED VACCINE Unknown Completed [facility] Influenza Virus Vaccine Quad IM Multi-dose 6+ MO Unknown Completed [facility] Influenza Virus Vaccine,quad Im,preserve Free 65+ (FLUAD) Unknown Completed [facility] SARS-COV-2 COVID-19 VACCINE - (MODERNA) Unknown Completed [facility] Pneumococcal Unspecified Unknown Completed [facility] Pneumococcal 13 Conjugate, PCV13 (Prevnar 13) Unknown Completed [facility] TDAP Unknown Completed [facility] Influenza High Dose Unknown Completed [facility] Influenza Virus Vaccine Unknown Completed [facility] Pneumococcal Polysaccharide, PPSV23 (PNEUMOVAX) Unknown Completed [facility] SARS-COV-2 COVID-19 UNSPECIFIED VACCINE Unknown Completed [facility] Influenza Virus Vaccine Quad IM Multi-dose 6+ MO Unknown Completed [facility] Influenza Virus Vaccine,quad Im,preserve Free 65+ (FLUAD) Unknown Completed [facility] SARS-COV-2 COVID-19 VACCINE - (MODERNA) Unknown Completed [facility] Pneumococcal Unspecified Unknown Completed [facility] Pneumococcal Polysaccharide, PPSV23 (PNEUMOVAX) Unknown Completed [facility] Pneumococcal 13 Conjugate, PCV13 (Prevnar 13) Unknown Completed [facility] TDAP Unknown Completed [facility] Influenza High Dose Unknown Completed [facility] Influenza Virus Vaccine Unknown Completed [facility] SARS-COV-2 COVID-19 UNSPECIFIED VACCINE Unknown Completed [facility] Influenza Virus Vaccine Quad IM Multi-dose 6+ MO Unknown Completed [facility] Influenza Virus Vaccine,quad Im,preserve Free 65+ (FLUAD) Unknown Completed [facility] SARS-COV-2 COVID-19 VACCINE - (MODERNA) Unknown Completed [facility] Pneumococcal Unspecified Unknown Completed [facility] Pneumococcal Polysaccharide, PPSV23 (PNEUMOVAX) Unknown Completed [facility] Pneumococcal 13 Conjugate, PCV13 (Prevnar 13) Unknown Completed [facility] TDAP Unknown Completed [facility] Influenza High Dose Unknown Completed [facility] Influenza Virus Vaccine Unknown Completed [facility] SARS-COV-2 COVID-19 UNSPECIFIED VACCINE Unknown Completed [facility] Influenza Virus Vaccine Quad IM Multi-dose 6+ MO Unknown Completed [facility] Influenza Virus Vaccine,quad Im,preserve Free 65+ (FLUAD) Unknown Completed [facility] SARS-COV-2 COVID-19 VACCINE - (MODERNA) Unknown Completed [facility] Pneumococcal Unspecified Unknown Completed [facility] Pneumococcal Polysaccharide, PPSV23 (PNEUMOVAX) Unknown Completed [facility] Pneumococcal 13 Conjugate, PCV13 (Prevnar 13) Unknown Completed [facility] TDAP Unknown Completed [facility] Influenza High Dose Unknown Completed [facility] Influenza Virus Vaccine Unknown Completed [facility] SARS-COV-2 COVID-19 UNSPECIFIED VACCINE Unknown Completed [facility] Influenza Virus Vaccine Quad IM Multi-dose 6+ MO Unknown Completed [facility] Influenza Virus Vaccine,quad Im,preserve Free 65+ (FLUAD) Unknown Completed [facility] SARS-COV-2 COVID-19 VACCINE - (MODERNA) Unknown Completed [facility] Pneumococcal Unspecified Unknown Completed [facility] Pneumococcal Polysaccharide, PPSV23 (PNEUMOVAX) Unknown Completed [facility] Pneumococcal 13 Conjugate, PCV13 (Prevnar 13) Unknown Completed [facility] TDAP Unknown Completed [facility] Influenza High Dose Unknown Completed [facility] Influenza Virus Vaccine Unknown Completed [facility] SARS-COV-2 COVID-19 UNSPECIFIED VACCINE Unknown Completed [facility] Influenza Virus Vaccine Quad IM Multi-dose 6+ MO Unknown Completed [facility] Influenza Virus Vaccine,quad Im,preserve Free 65+ (FLUAD) Unknown Completed [facility] SARS-COV-2 COVID-19 VACCINE - (MODERNA) Unknown Completed [facility] Pneumococcal Unspecified Unknown Completed [facility] Pneumococcal Polysaccharide, PPSV23 (PNEUMOVAX) Unknown Completed [facility] Pneumococcal 13 Conjugate, PCV13 (Prevnar 13) Unknown Completed [facility] TDAP Unknown Completed [facility] Influenza High Dose Unknown Completed [facility] Influenza Virus Vaccine Unknown Completed [facility] SARS-COV-2 COVID-19 UNSPECIFIED VACCINE Unknown Com[facility] Influenza Virus Vaccine Quad IM Multi-dose 6+ MO Unknown Completed [facility] Influenza Virus Vaccine,quad Im,preserve Free 65+ (FLUAD) Unknown Completed [facility] SARS-COV-2 COVID-19 VACCINE - (MODERNA) Unknown Completed [facility] Pneumococcal Unspecified Unknown Completed [facility] Pneumococcal Polysaccharide, PPSV23 (PNEUMOVAX) Unknown Completed [facility] Pneumococcal 13 Conjugate, PCV13 (Prevnar 13) Unknown Completed [facility] TDAP Unknown Completed [facility] Influenza High Dose Unknown Completed [facility] Influenza Virus Vaccine Unknown Completed [facility] SARS-COV-2 COVID-19 UNSPECIFIED VACCINE Unknown Completed [facility] Influenza Virus Vaccine Quad IM Multi-dose 6+ MO Unknown Completed [facility] Influenza Virus Vaccine,quad Im,preserve Free 65+ (FLUAD) Unknown Completed [facility] SARS-COV-2 COVID-19 VACCINE - (MODERNA) Unknown Completed [facility] Pneumococcal Unspecified Unknown Completed [facility] Pneumococcal Polysaccharide, PPSV23 (PNEUMOVAX) Unknown Completed [facility] Pneumococcal 13 Conjugate, PCV13 (Prevnar 13) Unknown Completed [facility] TDAP Unknown Completed [facility] Influenza High Dose Unknown Completed [facility] Influenza Virus Vaccine Unknown Completed [facility] SARS-COV-2 COVID-19 UNSPECIFIED VACCINE Unknown Completed [facility] Influenza Virus Vaccine Quad IM Multi-dose 6+ MO Unknown Completed [facility] Influenza Virus Vaccine,quad Im,preserve Free 65+ (FLUAD) Unknown Completed [facility] SARS-COV-2 COVID-19 VACCINE - (MODERNA) Unknown Completed [facility] Pneumococcal Unspecified Unknown Completed [facility] Pneumococcal Polysaccharide, PPSV23 (PNEUMOVAX) Unknown Completed [facility] Pneumococcal 13 Conjugate, PCV13 (Prevnar 13) Unknown Completed [facility] TDAP Unknown Completed [facility] Influenza High Dose Unknown Completed [facility] Influenza Virus Vaccine Unknown Completed [facility] SARS-COV-2 COVID-19 UNSPECIFIED VACCINE Unknown Completed [facility] Influenza Virus Vaccine Quad IM Multi-dose 6+ MO Unknown Completed [facility] Influenza Virus Vaccine,quad Im,preserve Free 65+ (FLUAD) Unknown Completed [facility] SARS-COV-2 COVID-19 VACCINE - (MODERNA) Unknown [facility] Pneumococcal Unspecified Unknown Completed [facility] Pneumococcal Polysaccharide, PPSV23 (PNEUMOVAX) [facility] Con[facility], PCV13 (Prevnar 13) Unknown Completed [facility] TDAP Unknown Completed [facility] Influenza High Dose Unknown Completed [facility] Influenza Virus Vaccine Unknown Completed [facility] SARS-COV-2 COVID-19 UNSPECIFIED VACCINE Unknown Completed [facility] Influenza Virus Vaccine Quad IM Multi-dose 6+ MO Unknown Completed [facility] Influenza Virus Vaccine,quad Im,preserve Free 65+ (FLUAD) Unknown Completed [facility] SARS-COV-2 COVID-19 VACCINE - (MODERNA) Unknown [facility] Pneumococcal Unspecified Unknown Completed [facility] Pneumococcal Polysaccharide, PPSV23 (PNEUMOVAX) Unknown Completed [facility] Pneumococcal 13 Conjugate, PCV13 (Prevnar 13) Unknown Completed [facility] TDAP Unknown Completed [facility] Influenza High Dose Unknown Completed [facility] Influenza Virus Vaccine Unknown Completed [facility] SARS-COV-2 COVID-19 UNSPECIFIED VACCINE Unknown [facility] Influenza Virus Vaccine Quad IM Multi-dose 6+ MO Unknown Completed [facility] Influenza Virus Vaccine,quad Im,preserve Free 65+ (FLUAD) Unknown Completed [facility] SARS-COV-2 COVID-19 VACCINE - (MODERNA) [facility] Com[facility] Pneumococcal Polysaccharide, PPSV23 (PNEUMOVAX) [facility] 13 Conjugate, PCV13 (Prevnar 13) Unknown Completed [facility] TDAP Unknown Completed [facility] Influenza High Dose Unknown Completed [facility] Influenza Virus Vaccine Unknown Completed [facility] SARS-COV-2 COVID-19 UNSPECIFIED VACCINE Unknown Completed [facility] Influenza Virus Vaccine Quad IM Multi-dose 6+ MO Unknown Completed [facility] Influenza Virus Vaccine,quad Im,preserve Free 65+ (FLUAD) Unknown Completed [facility] SARS-COV-2 COVID-19 VACCINE - (MODERNA) Unknown Completed [facility] Pneumococcal Unspecified Unknown Completed [facility] Pneumococcal Polysaccharide, PPSV23 (PNEUMOVAX) Unknown Completed [facility] Pneumococcal 13 Conjugate, PCV13 (Prevnar 13) Unknown Completed [facility] TDAP Unknown Completed [facility] Influenza High Dose Unknown Completed [facility] Influenza Virus Vaccine Unknown Completed [facility] SARS-COV-2 COVID-19 UNSPECIFIED VACCINE Unknown Completed [facility] Influenza Virus Vaccine Quad IM Multi-dose 6+ MO Unknown Completed [facility] Influenza Virus Vaccine,quad Im,preserve Free 65+ (FLUAD) Unknown Completed [facility] SARS-COV-2 COVID-19 VACCINE - (MODERNA) Unknown Completed [facility] Pneumococcal Unspecified Unknown Completed [facility] Vital Signs Vital Name Observation Time Observation Value Comments S ource Systolic blood pressure 2024-05-10 21:28:00 135 mm[Hg] [facility] Diastolic blood pressure 2024-05-10 21:28:00 60 mm[Hg] [facility] Heart rate 2024-05-10 21:28:00 79 /min [facility] Body temperature 2024-05-10 21:18:00 36.78 Sherry [facility] Respiratory rate 2024-05-10 21:18:00 20 /min [facility] Body height 2024-05-10 21:18:00 170.2 cm [facility] Body weight 2024-05-10 21:18:00 102.059 kg [facility] BMI 2024-05-10 21:18:00 35.24 kg/m2 [facility] Oxygen saturation in Arterial blood by Pulse oximetry 2024-05-10 21:18:00 97 /min [facility] Systolic blood pressure 2024-04-30 17:48:00 128 mm[Hg] [facility] Diastolic blood pressure 2024-04-30 17:48:00 70 mm[Hg] [facility] Heart rate 2024-04-30 17:48:00 76 /min [facility] Body height 2024-04-30 17:48:00 170.2 cm [facility] Body weight 2024-04-30 17:48:00 109.317 kg [facility] BMI 2024-04-30 17:48:00 37.75 kg/m2 [facility] Oxygen saturation in Arterial blood by Pulse oximetry 2024-04-30 17:48:00 98 /min [facility] Systolic blood pressure 2024-04-17 15:04:00 124 mm[Hg] [facility] Diastolic blood pressure 2024-04-17 15:04:00 54 mm[Hg] [facility] Heart rate 2024-04-17 15:04:00 88 /min [facility] Body height 2024-04-17 15:04:00 170.2 cm [facility] Body weight 2024-04-17 15:04:00 109.317 kg [facility] BMI 2024-04-17 15:04:00 37.75 kg/m2 [facility] Systolic blood pressure 2024-04-03 19:07:00 152 mm[Hg] [facility] Diastolic blood pressure 2024-04-03 19:07:00 74 mm[Hg] [facility] Heart rate 2024-04-03 18:58:00 89 /min [facility] Body height 2024-04-03 18:58:00 170.2 cm [facility] Body weight 2024-04-03 18:58:00 109.317 kg [facility] BMI 2024-04-03 18:58:00 37.75 kg/m2 [facility] Oxygen saturation in Arterial blood by Pulse oximetry 2024-04-03 18:58:00 98 /min [facility] Systolic blood pressure 2024-01-31 17:44:00 98 mm[Hg] [facility] Diastolic blood pressure 2024-01-31 17:44:00 54 mm[Hg] [facility] Heart rate 2024-01-31 17:44:00 73 /min [facility] Body temperature 2024-01-31 17:44:00 36.94 Sherry [facility] Respiratory rate 2024-01-31 17:44:00 17 /min [facility] Body height 2024-01-31 17:44:00 170.2 cm [facility] Body weight 2024-01-31 17:44:00 109.045 kg wt per pt - declined to weigh [facility] BMI 2024-01-31 17:44:00 37.65 kg/m2 [facility] Oxygen saturation in Arterial blood by Pulse oximetry 2024-01-31 17:44:00 96 /min [facility] Systolic blood pressure 2024-01-31 15:44:00 137 mm[Hg] [facility] Diastolic blood pressure 2024-01-31 15:44:00 74 mm[Hg] [facility] Heart rate 2024-01-31 15:43:00 81 /min [facility] Body temperature 2024-01-31 15:43:00 36.83 Sherry [facility] Respiratory rate 2024-01-31 15:43:00 18 /min [facility] Body height 2024-01-31 15:43:00 170.2 cm [facility] Body weight 2024-01-31 15:43:00 108.863 kg [facility] BMI 2024-01-31 15:43:00 37.59 kg/m2 [facility] Oxygen saturation in Arterial blood by Pulse oximetry 2024-01-31 15:43:00 98 /min [facility] Systolic blood pressure 2024-01-17 01:00:00 171 mm[Hg] [facility] Diastolic blood pressure 2024-01-17 01:00:00 92 mm[Hg] [facility] Heart rate 2024-01-17 01:00:00 84 /min [facility] Respiratory rate 2024-01-17 01:00:00 18 /min [facility] Oxygen saturation in Arterial blood by Pulse oximetry 2024-01-17 01:00:00 96 /min [facility] Body temperature 2024-01-17 00:44:00 36.5 Sherry [facility] Body height 2024-01-16 20:53:00 170.2 cm [facility] Body weight 2024-01-16 20:53:00 109.317 kg [facility] BMI 2024-01-16 20:53:00 37.75 kg/m2 [facility] Systolic blood pressure 2023-12-27 15:40:00 144 mm[Hg] [facility] Diastolic blood pressure 2023-12-27 15:40:00 69 mm[Hg] [facility] Heart rate 2023-12-27 15:39:00 81 /min [facility] Body temperature 2023-12-27 15:39:00 36.72 Sherry [facility] Respiratory rate 2023-12-27 15:39:00 18 /min [facility] Body height 2023-12-27 15:39:00 170.2 cm [facility] Oxygen saturation in Arterial blood by Pulse oximetry 2023-12-27 15:39:00 97 /min [facility] Systolic blood pressure 2023-11-11 17:03:00 160 mm[Hg] [facility] Diastolic blood pressure 2023-11-11 17:03:00 60 mm[Hg] [facility] Heart rate 2023-11-11 16:03:00 76 /min [facility] Body temperature 2023-11-11 16:03:00 36.89 Sherry [facility] Respiratory rate 2023-11-11 16:03:00 18 /min [facility] Body height 2023-11-11 16:03:00 170.2 cm [facility] Body weight 2023-11-11 16:03:00 109.77 kg [facility] BMI 2023-11-11 16:03:00 37.90 kg/m2 [facility] Oxygen saturation in Arterial blood by Pulse oximetry 2023-11-11 16:03:00 95 /min [facility] Systolic blood pressure 2023-10-30 22:39:00 155 mm[Hg] [facility] Diastolic blood pressure 2023-10-30 22:39:00 69 mm[Hg] [facility] Heart rate 2023-10-30 22:39:00 80 /min [facility] Body temperature 2023-10-30 22:39:00 36.72 Sherry [facility] Respiratory rate 2023-10-30 22:39:00 18 /min [facility] Oxygen saturation in Arterial blood by Pulse oximetry 2023-10-30 22:39:00 99 /min [facility] Body height 2023-10-30 19:36:00 170.2 cm [facility] Body weight 2023-10-30 19:36:00 109.317 kg [facility] BMI 2023-10-30 19:36:00 37.75 kg/m2 [facility] Systolic blood pressure 2023-09-21 15:28:00 147 mm[Hg] [facility] Diastolic blood pressure 2023-09-21 15:28:00 65 mm[Hg] [facility] Heart rate 2023-09-21 15:28:00 64 /min [facility] Body temperature 2023-09-21 15:25:00 36.28 Sherry [facility] Body height 2023-09-21 15:25:00 170.2 cm [facility] Body weight 2023-09-21 15:25:00 109.317 kg [facility] BMI 2023-09-21 15:25:00 37.75 kg/m2 [facility] Oxygen saturation in Arterial blood by Pulse oximetry 2023-09-21 15:25:00 98 /min [facility] Systolic blood pressure 2023-08-12 17:07:00 148 mm[Hg] [facility] Diastolic blood pressure 2023-08-12 17:07:00 61 mm[Hg] [facility] Heart rate 2023-08-12 17:07:00 61 /min [facility] Respiratory rate 2023-08-12 17:07:00 18 /min [facility] Body height 2023-08-12 17:07:00 170.2 cm [facility] Body weight 2023-08-12 17:07:00 113.853 kg [facility] BMI 2023-08-12 17:07:00 39.31 kg/m2 [facility] Oxygen saturation in Arterial blood by Pulse oximetry 2023-08-12 17:07:00 99 /min [facility] Systolic blood pressure 2023-07-13 14:42:00 154 mm[Hg] [facility] Diastolic blood pressure 2023-07-13 14:42:00 56 mm[Hg] [facility] Heart rate 2023-07-13 14:36:00 75 /min [facility] Respiratory rate 2023-07-13 14:36:00 18 /min [facility] Body height 2023-07-13 14:36:00 170.2 cm [facility] Body weight 2023-07-13 14:36:00 113.853 kg [facility] BMI 2023-07-13 14:36:00 39.31 kg/m2 [facility] Oxygen saturation in Arterial blood by Pulse oximetry 2023-07-13 14:36:00 96 /min [facility] Systolic blood pressure 2023-07-08 20:05:00 125 mm[Hg] [facility] Diastolic blood pressure 2023-07-08 20:05:00 72 mm[Hg] [facility] Heart rate 2023-07-08 20:05:00 77 /min [facility] Body temperature 2023-07-08 20:05:00 36.33 Sherry [facility] Body height 2023-07-08 20:05:00 170.2 cm [facility] Body weight 2023-07-08 20:05:00 114.216 kg [facility] BMI 2023-07-08 20:05:00 39.44 kg/m2 [facility] Oxygen saturation in Arterial blood by Pulse oximetry 2023-07-08 20:05:00 96 /min [facility] Systolic blood pressure 2023-06-22 16:15:00 133 mm[Hg] [facility] Diastolic blood pressure 2023-06-22 16:15:00 50 mm[Hg] [facility] Heart rate 2023-06-22 16:15:00 83 /min [facility] Oxygen saturation in Arterial blood by Pulse oximetry 2023-06-22 16:15:00 98 /min [facility] Respiratory rate 2023-06-22 16:10:00 17 /min [facility] Body height 2023-06-22 16:10:00 170.2 cm [facility] Body weight 2023-06-22 16:10:00 114.125 kg [facility] BMI 2023-06-22 16:10:00 39.41 kg/m2 [facility] Systolic blood pressure 2023-06-09 15:46:00 174 mm[Hg] [facility] Diastolic blood pressure 2023-06-09 15:46:00 69 mm[Hg] [facility] Heart rate 2023-06-09 15:46:00 63 /min [facility] Body height 2023-06-09 15:46:00 170.2 cm [facility] Body weight 2023-06-09 15:46:00 112.447 kg [facility] BMI 2023-06-09 15:46:00 38.83 kg/m2 [facility] Oxygen saturation in Arterial blood by Pulse oximetry 2023-06-09 15:46:00 96 /min [facility] Systolic blood pressure 2023-06-06 17:35:00 134 mm[Hg] [facility] Diastolic blood pressure 2023-06-06 17:35:00 63 mm[Hg] [facility] Heart rate 2023-06-06 17:35:00 68 /min [facility] Body temperature 2023-06-06 17:35:00 36.39 Sherry [facility] Respiratory rate 2023-06-06 17:35:00 16 /min [facility] Body height 2023-06-06 17:35:00 170.2 cm [facility] Body weight 2023-06-06 17:35:00 115.44 kg [facility] BMI 2023-06-06 17:35:00 39.86 kg/m2 [facility] Oxygen saturation in Arterial blood by Pulse oximetry 2023-06-06 17:35:00 94 /min [facility] Systolic blood pressure 2023-05-23 17:01:00 137 mm[Hg] [facility] Diastolic blood pressure 2023-05-23 17:01:00 50 mm[Hg] [facility] Body height 2023-05-23 17:01:00 170.2 cm [facility] Body weight 2023-05-23 17:01:00 113.853 kg [facility] BMI 2023-05-23 17:01:00 39.31 kg/m2 [facility] Systolic blood pressure 2023-05-05 19:45:00 146 mm[Hg] [facility] Diastolic blood pressure 2023-05-05 19:45:00 53 mm[Hg] [facility] Heart rate 2023-05-05 19:45:00 68 /min [facility] Body temperature 2023-05-05 19:45:00 36.72 Sherry [facility] Respiratory rate 2023-05-05 19:45:00 16 /min [facility] Body height 2023-05-05 19:45:00 170.2 cm [facility] Body weight 2023-05-05 19:45:00 116.574 kg [facility] BMI 2023-05-05 19:45:00 40.25 kg/m2 [facility] Oxygen saturation in Arterial blood by Pulse oximetry 2023-05-05 19:45:00 97 /min [facility] Systolic blood pressure 2023-05-05 15:30:00 114 mm[Hg] [facility] Diastolic blood pressure 2023-05-05 15:30:00 65 mm[Hg] [facility] Heart rate 2023-05-05 15:30:00 71 /min [facility] Body temperature 2023-05-05 15:30:00 35.94 Sherry [facility] Body height 2023-05-05 15:30:00 170.2 cm [facility] Body weight 2023-05-05 15:30:00 116.711 kg [facility] BMI 2023-05-05 15:30:00 40.30 kg/m2 [facility] Oxygen saturation in Arterial blood by Pulse oximetry 2023-05-05 15:30:00 96 /min [facility] Systolic blood pressure 2023-04-27 16:26:00 148 mm[Hg] [facility] Diastolic blood pressure 2023-04-27 16:26:00 61 mm[Hg] [facility] Heart rate 2023-04-27 16:25:00 59 /min [facility] Body temperature 2023-04-27 16:25:00 34.67 Sherry [facility] Respiratory rate 2023-04-27 16:25:00 20 /min [facility] Body height 2023-04-27 16:25:00 170.2 cm [facility] Body weight 2023-04-27 16:25:00 113.354 kg [facility] BMI 2023-04-27 16:25:00 39.14 kg/m2 [facility] Oxygen saturation in Arterial blood by Pulse oximetry 2023-04-27 16:25:00 98 /min [facility] Systolic blood pressure 2023-04-19 16:37:00 116 mm[Hg] [facility] Diastolic blood pressure 2023-04-19 16:37:00 60 mm[Hg] [facility] Heart rate 2023-04-19 16:37:00 52 /min [facility] Body temperature 2023-04-19 16:37:00 36.39 Sherry [facility] Respiratory rate 2023-04-19 16:37:00 18 /min [facility] Oxygen saturation in Arterial blood by Pulse oximetry 2023-04-19 16:37:00 95 /min [facility] Body weight 2023-04-18 09:46:00 108.5 kg [facility] BMI 2023-04-18 09:46:00 37.46 kg/m2 [facility] Body height 2023-04-13 02:12:00 170.2 cm [facility] Heart rate 2023-03-28 15:29:00 65 /min [facility] Respiratory rate 2023-03-28 15:29:00 22 /min [facility] Oxygen saturation in Arterial blood by Pulse oximetry 2023-03-28 15:29:00 96 /min [facility] Systolic blood pressure 2023-03-28 13:10:00 155 mm[Hg] [facility] Diastolic blood pressure 2023-03-28 13:10:00 63 mm[Hg] [facility] Body temperature 2023-03-28 13:10:00 36.22 Sherry [facility] Body weight 2023-03-24 08:16:00 119.438 kg bedscale used - patient unable to stand on scale [facility] BMI 2023-03-24 08:16:00 41.24 kg/m2 [facility] Body height 2023-03-21 14:07:00 170.2 cm [facility] Systolic blood pressure 2023-03-25 13:32:00 157 mm[Hg] [facility] Diastolic blood pressure 2023-03-25 13:32:00 47 mm[Hg] [facility] Heart rate 2023-03-25 12:35:00 64 /min [facility] Body temperature 2023-03-25 12:35:00 36.39 Sherry [facility] Respiratory rate 2023-03-25 12:35:00 20 /min [facility] Oxygen saturation in Arterial blood by Pulse oximetry 2023-03-25 12:35:00 95 /min [facility] Body weight 2023-03-24 08:16:00 119.438 kg bedscale used - patient unable to stand on scale [facility] BMI 2023-03-24 08:16:00 41.24 kg/m2 [facility] Body height 2023-03-21 14:07:00 170.2 cm [facility] Systolic blood pressure 2023-03-21 14:07:00 153 mm[Hg] [facility] Diastolic blood pressure 2023-03-21 14:07:00 76 mm[Hg] [facility] Heart rate 2023-03-21 14:07:00 64 /min [facility] Body temperature 2023-03-21 14:07:00 36.5 Sherry [facility] Respiratory rate 2023-03-21 14:07:00 18 /min [facility] Body height 2023-03-21 14:07:00 170.2 cm [facility] Body weight 2023-03-21 14:07:00 123.2 kg [facility] BMI 2023-03-21 14:07:00 42.54 kg/m2 [facility] Oxygen saturation in Arterial blood by Pulse oximetry 2023-03-21 14:07:00 100 /min [facility] Systolic blood pressure 2023-03-10 21:20:00 150 mm[Hg] [facility] Diastolic blood pressure 2023-03-10 21:20:00 56 mm[Hg] [facility] Heart rate 2023-03-10 21:20:00 66 /min [facility] Body temperature 2023-03-10 21:17:00 37 Sherry [facility] Respiratory rate 2023-03-10 21:17:00 18 /min [facility] Body height 2023-03-10 21:17:00 170.2 cm [facility] Body weight 2023-03-10 21:17:00 117.935 kg [facility] BMI 2023-03-10 21:17:00 40.72 kg/m2 [facility] Oxygen saturation in Arterial blood by Pulse oximetry 2023-03-10 21:17:00 96 /min [facility] Systolic blood pressure 2023-03-08 21:20:00 167 mm[Hg] [facility] Diastolic blood pressure 2023-03-08 21:20:00 77 mm[Hg] [facility] Heart rate 2023-03-08 21:06:00 74 /min [facility] Body temperature 2023-03-08 21:06:00 36.17 Sherry [facility] Body height 2023-03-08 21:06:00 170.2 cm [facility] Body weight 2023-03-08 21:06:00 118.071 kg [facility] BMI 2023-03-08 21:06:00 40.77 kg/m2 [facility] Oxygen saturation in Arterial blood by Pulse oximetry 2023-03-08 21:06:00 97 /min [facility] Systolic blood pressure 2023-02-21 20:39:00 157 mm[Hg] [facility] Diastolic blood pressure 2023-02-21 20:39:00 59 mm[Hg] [facility] Heart rate 2023-02-21 20:39:00 80 /min [facility] Body temperature 2023-02-21 20:39:00 37.44 Sherry [facility] Respiratory rate 2023-02-21 20:39:00 18 /min [facility] Oxygen saturation in Arterial blood by Pulse oximetry 2023-02-21 20:39:00 93 /min [facility] Body weight 2023-02-21 08:00:00 118.978 kg [facility] BMI 2023-02-21 08:00:00 41.08 kg/m2 [facility] Body height 2023-02-21 01:34:00 170.2 cm [facility] Systolic blood pressure 2023-02-08 15:56:00 145 mm[Hg] [facility] Diastolic blood pressure 2023-02-08 15:56:00 70 mm[Hg] [facility] Heart rate 2023-02-08 15:56:00 64 /min [facility] Respiratory rate 2023-02-08 15:56:00 20 /min [facility] Body height 2023-02-08 15:56:00 170.2 cm [facility] Body weight 2023-02-08 15:56:00 118.842 kg [facility] BMI 2023-02-08 15:56:00 41.04 kg/m2 [facility] Oxygen saturation in Arterial blood by Pulse oximetry 2023-02-08 15:56:00 98 /min [facility] Systolic blood pressure 2022-12-24 16:07:00 127 mm[Hg] [facility] Diastolic blood pressure 2022-12-24 16:07:00 47 mm[Hg] [facility] Heart rate 2022-12-24 16:07:00 72 /min [facility] Body temperature 2022-12-24 16:07:00 36.11 Sherry [facility] Respiratory rate 2022-12-24 16:07:00 18 /min [facility] Body height 2022-12-24 16:07:00 170.2 cm [facility] Body weight 2022-12-24 16:07:00 109.408 kg [facility] BMI 2022-12-24 16:07:00 37.78 kg/m2 [facility] Oxygen saturation in Arterial blood by Pulse oximetry 2022-12-24 16:07:00 98 /min [facility] Systolic blood pressure 2022-12-21 15:39:00 113 mm[Hg] [facility] Diastolic blood pressure 2022-12-21 15:39:00 51 mm[Hg] [facility] Heart rate 2022-12-21 15:39:00 73 /min [facility] Body height 2022-12-21 15:39:00 170.2 cm [facility] Body weight 2022-12-21 15:39:00 108.909 kg [facility] BMI 2022-12-21 15:39:00 37.60 kg/m2 [facility] Systolic blood pressure 2022-12-09 14:08:00 116 mm[Hg] [facility] Diastolic blood pressure 2022-12-09 14:08:00 75 mm[Hg] [facility] Heart rate 2022-12-09 14:08:00 74 /min [facility] Body height 2022-12-09 14:08:00 170.2 cm [facility] Body weight 2022-12-09 14:08:00 104.599 kg [facility] BMI 2022-12-09 14:08:00 36.12 kg/m2 [facility] Oxygen saturation in Arterial blood by Pulse oximetry 2022-12-09 14:08:00 100 /min [facility] Systolic blood pressure 2022-09-28 15:54:00 135 mm[Hg] [facility] Diastolic blood pressure 2022-09-28 15:54:00 70 mm[Hg] [facility] Heart rate 2022-09-28 15:54:00 65 /min [facility] Body temperature 2022-09-28 15:54:00 36.94 Sherry [facility] Respiratory rate 2022-09-28 15:54:00 20 /min [facility] Body height 2022-09-28 15:54:00 170.2 cm [facility] Body weight 2022-09-28 15:54:00 116.847 kg [facility] BMI 2022-09-28 15:54:00 40.35 kg/m2 [facility] Oxygen saturation in Arterial blood by Pulse oximetry 2022-09-28 15:54:00 97 /min [facility] Systolic blood pressure 2022-09-07 20:18:00 146 mm[Hg] [facility] Diastolic blood pressure 2022-09-07 20:18:00 56 mm[Hg] [facility] Heart rate 2022-09-07 20:18:00 60 /min [facility] Oxygen saturation in Arterial blood by Pulse oximetry 2022-09-07 20:18:00 96 /min [facility] Respiratory rate 2022-09-07 20:14:00 20 /min [facility] Body height 2022-09-07 20:14:00 170.2 cm [facility] Body weight 2022-09-07 20:14:00 119.296 kg [facility] BMI 2022-09-07 20:14:00 41.19 kg/m2 [facility] Systolic blood pressure 2022-08-31 16:37:00 135 mm[Hg] [facility] Diastolic blood pressure 2022-08-31 16:37:00 50 mm[Hg] [facility] Heart rate 2022-08-31 16:37:00 61 /min [facility] Body temperature 2022-08-31 16:37:00 36.78 Sherry [facility] Body height 2022-08-31 16:37:00 170.2 cm [facility] Body weight 2022-08-31 16:37:00 118.389 kg [facility] BMI 2022-08-31 16:37:00 40.88 kg/m2 [facility] Oxygen saturation in Arterial blood by Pulse oximetry 2022-08-31 16:37:00 96 /min [facility] Body temperature 2022-08-30 19:10:00 36.17 Sherry [facility] Body height 2022-08-30 19:10:00 170.2 cm [facility] Body weight 2022-08-30 19:10:00 119.205 kg [facility] BMI 2022-08-30 19:10:00 41.16 kg/m2 [facility] Systolic blood pressure 2022-08-13 17:33:00 140 mm[Hg] [facility] Diastolic blood pressure 2022-08-13 17:33:00 84 mm[Hg] [facility] Heart rate 2022-08-13 17:33:00 76 /min [facility] Oxygen saturation in Arterial blood by Pulse oximetry 2022-08-13 17:33:00 98 /min [facility] Respiratory rate 2022-08-13 17:30:00 20 /min [facility] Body height 2022-08-13 17:30:00 170.2 cm [facility] Body weight 2022-08-13 17:30:00 117.119 kg [facility] BMI 2022-08-13 17:30:00 40.44 kg/m2 [facility] Systolic blood pressure 2022-07-30 17:33:00 175 mm[Hg] [facility] Diastolic blood pressure 2022-07-30 17:33:00 66 mm[Hg] [facility] Heart rate 2022-07-30 17:32:00 81 /min [facility] Body temperature 2022-07-30 17:32:00 36.5 Sherry [facility] Body weight 2022-07-30 17:32:00 115.214 kg [facility] BMI 2022-07-30 17:32:00 39.78 kg/m2 [facility] Oxygen saturation in Arterial blood by Pulse oximetry 2022-07-30 17:32:00 100 /min [facility] Systolic blood pressure 2022-07-20 20:28:00 118 mm[Hg] [facility] Diastolic blood pressure 2022-07-20 20:28:00 60 mm[Hg] [facility] Heart rate 2022-07-20 20:28:00 52 /min [facility] Respiratory rate 2022-07-20 20:28:00 17 /min [facility] Body weight 2022-07-20 20:28:00 109.487 kg Per patient [facility] BMI 2022-07-20 20:28:00 37.80 kg/m2 [facility] Oxygen saturation in Arterial blood by Pulse oximetry 2022-07-20 20:28:00 91 /min [facility] Systolic blood pressure 2022-07-15 17:24:00 134 mm[Hg] [facility] Diastolic blood pressure 2022-07-15 17:24:00 56 mm[Hg] [facility] Heart rate 2022-07-15 17:24:00 63 /min [facility] Body temperature 2022-07-15 17:24:00 36.61 Sherry [facility] Body height 2022-07-15 17:24:00 170.2 cm [facility] Body weight 2022-07-15 17:24:00 111.585 kg [facility] BMI 2022-07-15 17:24:00 38.53 kg/m2 [facility] Oxygen saturation in Arterial blood by Pulse oximetry 2022-07-15 17:24:00 97 /min [facility] Systolic blood pressure 2022-07-05 18:00:00 154 mm[Hg] [facility] Diastolic blood pressure 2022-07-05 18:00:00 43 mm[Hg] [facility] Heart rate 2022-07-05 18:00:00 87 /min [facility] Body temperature 2022-07-05 18:00:00 37 Sherry [facility] Respiratory rate 2022-07-05 18:00:00 21 /min [facility] Oxygen saturation in Arterial blood by Pulse oximetry 2022-07-05 18:00:00 96 /min [facility] Body weight 2022-06-30 14:33:00 114.488 kg [facility] BMI 2022-06-30 14:33:00 39.53 kg/m2 [facility] Body height 2022-06-26 23:36:00 170.2 cm [facility] Systolic blood pressure 2022-06-08 16:55:00 141 mm[Hg] [facility] Diastolic blood pressure 2022-06-08 16:55:00 63 mm[Hg] [facility] Heart rate 2022-06-08 16:43:00 83 /min [facility] Body weight 2022-06-08 16:43:00 118.389 kg [facility] BMI 2022-06-08 16:43:00 40.88 kg/m2 [facility] Oxygen saturation in Arterial blood by Pulse oximetry 2022-06-08 16:43:00 96 /min [facility] Body temperature 2022-06-01 17:47:00 36.44 Sherry [facility] Body height 2022-06-01 17:47:00 170.2 cm [facility] Body weight 2022-06-01 17:47:00 116.574 kg [facility] BMI 2022-06-01 17:47:00 40.25 kg/m2 [facility] Systolic blood pressure 2022-05-10 19:38:00 107 mm[Hg] [facility] Diastolic blood pressure 2022-05-10 19:38:00 64 mm[Hg] [facility] Heart rate 2022-05-10 19:38:00 86 /min [facility] Body temperature 2022-05-10 19:38:00 37.06 Sherry [facility] Body height 2022-05-10 19:38:00 170.2 cm [facility] Body weight 2022-05-10 19:38:00 115.214 kg [facility] BMI 2022-05-10 19:38:00 39.78 kg/m2 [facility] Oxygen saturation in Arterial blood by Pulse oximetry 2022-05-10 19:38:00 97 /min [facility] Systolic blood pressure 2022-05-10 16:53:00 124 mm[Hg] [facility] Diastolic blood pressure 2022-05-10 16:53:00 60 mm[Hg] [facility] Heart rate 2022-05-10 16:53:00 91 /min [facility] Body weight 2022-05-10 16:49:00 115.486 kg [facility] BMI 2022-05-10 16:49:00 39.88 kg/m2 [facility] Oxygen saturation in Arterial blood by Pulse oximetry 2022-05-10 16:49:00 98 /min [facility] Systolic blood pressure 2022-04-29 15:55:00 146 mm[Hg] [facility] Diastolic blood pressure 2022-04-29 15:55:00 68 mm[Hg] [facility] Heart rate 2022-04-29 15:53:00 91 /min [facility] Body temperature 2022-04-29 15:53:00 36.78 Sherry [facility] Body weight 2022-04-29 15:53:00 116.121 kg [facility] BMI 2022-04-29 15:53:00 40.10 kg/m2 [facility] Oxygen saturation in Arterial blood by Pulse oximetry 2022-04-29 15:53:00 98 /min [facility] Systolic blood pressure 2022-04-22 14:08:00 127 mm[Hg] [facility] Diastolic blood pressure 2022-04-22 14:08:00 71 mm[Hg] [facility] Heart rate 2022-04-22 14:08:00 82 /min [facility] Body temperature 2022-04-22 14:08:00 36.56 Sherry [facility] Body height 2022-04-22 14:08:00 170.2 cm [facility] Body weight 2022-04-22 14:08:00 118.661 kg [facility] BMI 2022-04-22 14:08:00 40.97 kg/m2 [facility] Oxygen saturation in Arterial blood by Pulse oximetry 2022-04-22 14:08:00 97 /min [facility] Systolic blood pressure 2022-04-07 16:33:00 139 mm[Hg] [facility] Diastolic blood pressure 2022-04-07 16:33:00 63 mm[Hg] [facility] Heart rate 2022-04-07 16:33:00 86 /min [facility] Body temperature 2022-04-07 16:33:00 36.83 Sherry [facility] Body weight 2022-04-07 16:33:00 114.125 kg [facility] BMI 2022-04-07 16:33:00 39.41 kg/m2 [facility] Oxygen saturation in Arterial blood by Pulse oximetry 2022-04-07 16:33:00 96 /min [facility] Systolic blood pressure 2022-03-29 18:48:00 105 mm[Hg] [facility] Diastolic blood pressure 2022-03-29 18:48:00 52 mm[Hg] [facility] Heart rate 2022-03-29 18:48:00 96 /min [facility] Body height 2022-03-29 18:48:00 170.2 cm [facility] Body weight 2022-03-29 18:48:00 114.669 kg [facility] BMI 2022-03-29 18:48:00 39.59 kg/m2 [facility] Oxygen saturation in Arterial blood by Pulse oximetry 2022-03-29 18:48:00 92 /min [facility] Systolic blood pressure 2022-03-25 16:22:00 146 mm[Hg] [facility] Diastolic blood pressure 2022-03-25 16:22:00 77 mm[Hg] [facility] Heart rate 2022-03-25 16:21:00 84 /min [facility] Body temperature 2022-03-25 16:21:00 36.89 Sherry [facility] Body height 2022-03-25 16:21:00 170.2 cm [facility] Body weight 2022-03-25 16:21:00 111.766 kg [facility] BMI 2022-03-25 16:21:00 38.59 kg/m2 [facility] Oxygen saturation in Arterial blood by Pulse oximetry 2022-03-25 16:21:00 96 /min [facility] Systolic blood pressure 2022-03-16 15:57:00 120 mm[Hg] [facility] Diastolic blood pressure 2022-03-16 15:57:00 70 mm[Hg] [facility] Heart rate 2022-03-16 15:57:00 98 /min [facility] Body temperature 2022-03-16 15:57:00 36.33 Sherry [facility] Respiratory rate 2022-03-16 15:57:00 17 /min [facility] Body height 2022-03-16 15:57:00 170.2 cm [facility] Body weight 2022-03-16 15:57:00 110.814 kg [facility] BMI 2022-03-16 15:57:00 38.26 kg/m2 [facility] Oxygen saturation in Arterial blood by Pulse oximetry 2022-03-16 15:57:00 98 /min [facility] Systolic blood pressure 2022-02-25 13:06:00 133 mm[Hg] [facility] Diastolic blood pressure 2022-02-25 13:06:00 57 mm[Hg] [facility] Heart rate 2022-02-25 13:06:00 88 /min [facility] Body height 2022-02-25 13:06:00 170.2 cm [facility] Body weight 2022-02-25 13:06:00 111.131 kg [facility] BMI 2022-02-25 13:06:00 38.37 kg/m2 [facility] Oxygen saturation in Arterial blood by Pulse oximetry 2022-02-25 13:06:00 96 /min [facility] BP Diastolic 2021-12-10 00:00:00 78 mm[Hg] [facility] Height 2021-12-10 00:00:00 67 [in_i] [facility] BMI (Body Mass Index) 2021-12-10 00:00:00 41.3 kg/m2 [facility] BP Systolic 2021-12-10 00:00:00 140 mm[Hg] [facility] Body Weight 2021-12-10 00:00:00 4224 [oz_av] [facility] BP Diastolic 2021-08-31 00:00:00 70 mm[Hg] [facility] Height 2021-08-31 00:00:00 67 [in_i] [facility] BMI (Body Mass Index) 2021-08-31 00:00:00 38.2 kg/m2 [facility] BP Systolic 2021-08-31 00:00:00 116 mm[Hg] [facility] Body Weight 2021-08-31 00:00:00 3904 [oz_av] [facility] BP Diastolic 2021-07-30 00:00:00 92 mm[Hg] [facility] Height 2021-07-30 00:00:00 67 [in_i] [facility] BP Systolic 2021-07-30 00:00:00 164 mm[Hg] [facility] BP Diastolic 2021-05-18 00:00:00 72 mm[Hg] [facility] Height 2021-05-18 00:00:00 67 [in_i] [facility] BMI (Body Mass Index) 2021-05-18 00:00:00 39.8 kg/m2 [facility] BP Systolic 2021-05-18 00:00:00 124 mm[Hg] [facility] Body Weight 2021-05-18 00:00:00 4064 [oz_av] [facility] BP Diastolic 2021-04-13 00:00:00 64 mm[Hg] [facility] Height 2021-04-13 00:00:00 67 [in_i] [facility] BMI (Body Mass Index) 2021-04-13 00:00:00 39.5 kg/m2 [facility] BP Systolic 2021-04-13 00:00:00 138 mm[Hg] [facility] Body Weight 2021-04-13 00:00:00 4032 [oz_av] [facility] BP Diastolic 2021-02-17 00:00:00 64 mm[Hg] [facility] Height 2021-02-17 00:00:00 67 [in_i] [facility] BMI (Body Mass Index) 2021-02-17 00:00:00 37.7 kg/m2 [facility] BP Systolic 2021-02-17 00:00:00 122 mm[Hg] [facility] Body Weight 2021-02-17 00:00:00 3856 [oz_av] [facility] BP Diastolic 2021-01-13 00:00:00 64 mm[Hg] [facility] Height 2021-01-13 00:00:00 67 [in_i] [facility] BMI (Body Mass Index) 2021-01-13 00:00:00 39.2 kg/m2 [facility] BP Systolic 2021-01-13 00:00:00 130 mm[Hg] [facility] Body Weight 2021-01-13 00:00:00 4000 [oz_av] [facility] BP Diastolic 2020-11-27 00:00:00 64 mm[Hg] [facility] Height 2020-11-27 00:00:00 67 [in_i] [facility] BMI (Body Mass Index) 2020-11-27 00:00:00 38.8 kg/m2 [facility] BP Systolic 2020-11-27 00:00:00 132 mm[Hg] [facility] Body Weight 2020-11-27 00:00:00 3968 [oz_av] [facility] BP Diastolic 2020-10-30 00:00:00 64 mm[Hg] [facility] Height 2020-10-30 00:00:00 67 [in_i] [facility] BP Systolic 2020-10-30 00:00:00 118 mm[Hg] [facility] BP Diastolic 2020-10-09 00:00:00 72 mm[Hg] [facility] Height 2020-10-09 00:00:00 67 [in_i] [facility] BMI (Body Mass Index) 2020-10-09 00:00:00 36 kg/m2 [facility] BP Systolic 2020-10-09 00:00:00 126 mm[Hg] [facility] Body Weight 2020-10-09 00:00:00 3680 [oz_av] [facility] Height 2020-09-09 00:00:00 67 [in_i] [facility] BP Diastolic 2020-08-07 00:00:00 62 mm[Hg] [facility] Height 2020-08-07 00:00:00 67 [in_i] [facility] BMI (Body Mass Index) 2020-08-07 00:00:00 36.3 kg/m2 [facility] BP Systolic 2020-08-07 00:00:00 114 mm[Hg] [facility] Body Weight 2020-08-07 00:00:00 3712 [oz_av] [facility] BP Diastolic 2020-07-10 00:00:00 74 mm[Hg] [facility] Height 2020-07-10 00:00:00 67 [in_i] [facility] BMI (Body Mass Index) 2020-07-10 00:00:00 38.8 kg/m2 [facility] BP Systolic 2020-07-10 00:00:00 124 mm[Hg] [facility] Body Weight 2020-07-10 00:00:00 3968 [oz_av] [facility] Procedures Procedure Date / Time Performed Performing Clinician Source PHYSICIAN ORDERS 2024-09-24 15:46:03 Doctor Valente signed, [place] [facility] DME/SUPPLY JUSTIFICATION 2024-08-21 16:08:32 Doc gloria Unassigned, [place] [facility] DME/SUPPLY JUSTIFICATION 2024-08-21 16:08:26 Hollis castro Unassigned, [place] LOWER EXTREMITY ARTERIAL DUPLEX BILATERAL - BY VASCULAR LAB 2024-07-17 17:48:00 Jerome Soares [facility] CAROTID DUPLEX BILATERAL - BY VASCULAR LAB 2024-07-17 16:40:00 Jerome Soares [facility] SCANNED LAB RESULTS 2024-06-19 20:47:02 Doctor Brock farias, [place] PHYSICIAN ORDERS 2024-05-23 21:19:25 Doctor Valente signed, [place] XR KNEE 3 VW LEFT 2024-04-17 15:22:[address] [facility] POCT HEMOGLOBIN A1C TEST 2024-04-03 00:00:00 Elsi Christian [facility] EKG-12 LEAD 2024-01-17 00:29:15 Shahzad Pro [facility] LIPASE 2024-01-16 22:32:00 Shahzad Pro [facility] TROPONIN I 2024-01-16 22:32:00 Shahzad Pro [facility] COMP. METABOLIC PANEL ([id number]) 2024-01-16 22:32:00 Shahzad Por [facility] CBC WITH DIFF 2024-01-16 22:32:00 Shahzad Pro [facility] XR CHEST 2 VW 2024-01-16 21:59:00 Shahzad rPo [facility] TDAP VACCINE, >11 YRS, IM 2023-11-11 16:49:17 Andrea Israel [facility] POCT HEMOGLOBIN A1C TEST 2023-11-11 00:00:00 Lindy, Orestes perez [facility] LACTIC ACID WHOLE BLOOD 2023-10-30 21:36:00 Daniella Mao [facility] BASIC METABOLIC PANEL (NA, K, CL, CO2, GLUCOSE, BUN, CREATININE, CA) 2023-10-30 21:25:00 Daniella Hawk [facility] CBC WITH DIFF 2023-10-30 21:25:00 Daniella Hawk U [facility] DUPLEX VENOUS LEG RIGHT - BY VASCULAR LAB 2023-10-04 20:11:58 Steph Nur [facility] HEALTH - OTHER 2023-09-06 06:01:00 Doctor Brock castrosijulio, [place] [facility] HEALTH - OTHER 2023-08-08 06:01:00 Doctor U matthewsijulio, [facility] DME/SUPPLY JUSTIFICATION 2023-07-25 06:01:00 Doc tor Unassigned, [place] [facility] HEALTH - OTHER 2023-06-29 06:01:00 Doctor U matthewsijulio, [place] MAGNESIUM 2023-06-22 16:58:00 Jamshid Early U [facility] COMP. METABOLIC PANEL ([id number]) 2023-06-22 16:58:00 Jamshid Early [facility] CBC WITH DIFF 2023-06-22 16:58:00 Jamshid Early [facility] N-TERMINAL PRO-BNP 2023-06-22 16:58:00 Jamshid Early [facility] HEALTH - OTHER 2023-06-21 06:01:00 Doctor Brock farias, [place] XR ANKLE 3+ VW RIGHT 2023-06-06 20:24:31 Nehal Titus [facility] POCT HEMOGLOBIN A1C TEST 2023-05-23 17:05:00 HarrietErick kuo [facility] HOME HEALTH 485 2023-05-20 06:01:00 Doctor Unass igned, [facility] PHYSICIAN ORDERS 2023-05-05 05:01:00 Doctor Unas signed, [place] [facility] POCT GLUCOSE (AUTOMATED) 2023-04-19 16:41:00 Jared Alvarenga [facility] POCT GLUCOSE (AUTOMATED) 2023-04-19 13:19:00 Jared Alvarenga [facility] BASIC METABOLIC PANEL (NA, K, CL, CO2, GLUCOSE, BUN, CREATININE, CA) 2023-04-19 09:36:00 Leila Marmolejo [facility] CBC WITH DIFF 2023-04-19 09:36:00 Leila Marmolejo [facility] POCT GLUCOSE (AUTOMATED) 2023-04-19 04:44:00 Jared Alvarenga [facility] POCT GLUCOSE (AUTOMATED) 2023-04-19 01:22:00 Jared Alvarenga [facility] POCT GLUCOSE (AUTOMATED) 2023-04-18 21:33:00 Jared Alvarenga [facility] XR CHEST 1 VW 2023-04-18 17:25:00 Mumtaz [facility] POCT GLUCOSE (AUTOMATED) 2023-04-18 16:57:00 Jared Alvarenga [facility] POCT GLUCOSE (AUTOMATED) 2023-04-18 13:05:00 Jared Alvarenga [facility] BASIC METABOLIC PANEL (NA, K, CL, CO2, GLUCOSE, BUN, CREATININE, CA) 2023-04-18 09:26:00 Mumtaz San [facility] CBC WITHOUT DIFF 2023-04-18 09:26:00 Mumtaz San [facility] POCT GLUCOSE (AUTOMATED) 2023-04-18 01:43:00 Jared Alvarenga [facility] POCT GLUCOSE (AUTOMATED) 2023-04-17 21:43:00 Jared Alvarenga [facility] BASIC METABOLIC PANEL (NA, K, CL, CO2, GLUCOSE, BUN, CREATININE, CA) 2023-04-17 18:18:00 Mumtaz San [facility] CBC WITH DIFF 2023-04-17 18:18:00 Mumtaz [facility] N-TERMINAL PRO-BNP 2023-04-17 18:18:00 Jamshid Early [facility] POCT GLUCOSE (AUTOMATED) 2023-04-17 16:43:00 Jared Alvarenga [facility] VANCOMYCIN TROUGH 2023-04-17 14:40:00 Bladimir Ferraro [facility] POCT GLUCOSE (AUTOMATED) 2023-04-17 12:41:00 [facility] POCT GLUCOSE (AUTOMATED) 2023-04-17 01:12:00 [facility] 2023-04-16 21:24:00 [facility]) 2023-04-16 17:36:00 [facility] ([facility]OMATED) 2023-04-16 16:51:00 [facility] ([facility]OMATED) 2023-04-16 12:51:00 Jared Alvarenga [facility] POCT GLUCOSE (AUTOMATED) 2023-04-16 12:50:00 [facility] 2023-04-16 10:40:00 Bladimir Ferraro [facility] TROPONIN I 2023-04-16 10:40:00 Bladimir Ferraro [facility] BASIC METABOLIC PANEL (NA, K, CL, CO2, GLUCOSE, BUN, CREATININE, CA) 2023-04-16 10:40:00 Bladimir Ferraro [facility] N-TERMINAL PRO-BNP 2023-04-16 10:40:00 Bladimir Ferraro [facility] POCT GLUCOSE (AUTOMATED) 2023-04-16 01:45:00 [facility]ATED) 2023-04-15 21:37:00 Jared Alvarenga [facility] VANCOMYCIN TROUGH 2023-04-15 17:05:00 Jaleel Boyle [facility] POCT GLUCOSE (AUTOMATED) 2023-04-15 16:45:00 Jared Alvarenga [facility] POCT GLUCOSE (AUTOMATED) 2023-04-15 12:48:00 Jared Alvarenga [facility] MAGNESIUM 2023-04-15 09:35[facility] 09:35[facility]IC [facility]EL (NA, K, CL, CO2, GLUCOSE, BUN, CREATININE, CA) 2023-04-15 09:35:[address] [facility] CBC WITH DIFF 2023-04-15 09:35:00 Bladimir Ferraro [facility] N-TERMINAL PRO-BNP 2023-04-15 09:35:[address] [facility] POCT GLUCOSE (AUTOMATED) 2023-04-15 01:48:00 Jared Alvarenga [facility] POCT GLUCOSE (AUTOMATED) 2023-04-14 21:38:00 Jared Alvarenga [facility] POCT GLUCOSE (AUTOMATED) 2023-04-14 16:52:00 Jared Alvarenga [facility] POCT GLUCOSE (AUTOMATED) 2023-04-14 12:57:00 Jared Alvarenga [facility] MAGNESIUM 2023-04-14 10:22:00 Bladimir Ferraro [facility] TROPONIN I 2023-04-14 10:22:00 Bladimir Ferraro [facility] BASIC METABOLIC PANEL (NA, K, CL, CO2, GLUCOSE, BUN, CREATININE, CA) 2023-04-14 10:22:[address] [facility] CBC WITH DIFF 2023-04-14 10:22:00 Bladimir Ferraro [facility] N-TERMINAL PRO-BNP 2023-04-14 10:22:[address] [facility] POCT GLUCOSE (AUTOMATED) 2023-04-14 02:28:00 Jared Alvarenga [facility] POCT GLUCOSE (AUTOMATED) 2023-04-13 22:40:00 [facility] POCT GLUCOSE (AUTOMATED) 2023-04-13 16:56:00 [facility] POCT GLUCOSE (AUTOMATED) 2023-04-13 13:09:00 [facility] DENNISE AURIS SURVEILLANCE BY PCR (INFECTION CONTROL PURPOSES) 2023-04-13 04:20:00 Sam Meredith [facility] CT HEAD WO CONTRAST 2023-04-12 23:46:00 Tootie Chau [facility] HB ECG ROUTINE & RHYTHM STRIP 2023-04-12 22:46:51 Tootie Chau [facility] XR CHEST 1 VW 2023-04-12 22:32:34 Tootie Chau [facility] BLOOD CULTURE SCREEN 2023-04-12 21:44:00 Tootie Chau [facility] BLOOD CULTURE SCREEN 2023-04-12 21:40:00 Tootie Chau [facility] URINALYSIS 2023-04-12 21:40:00 Tootie Chau [facility] URINE CULTURE 2023-04-12 21:40:00 Tootie Chau [facility] AC PANEL 20 + LACTIC ACID 2023-04-12 21:16:00 Tootie Chau [facility] TROPONIN I 2023-04-12 21:00:00 Tootie Chau [facility] COMP. METABOLIC PANEL ([id number]) 2023-04-12 21:00:00 Tootie Chau [facility] CBC WITH DIFF 2023-04-12 21:00:00 Tootie Chau [facility] N-TERMINAL PRO-BNP 2023-04-12 21:00:00 Tootie Chau [facility] HOME HEALTH - OTHER 2023-04-04 05:01:00 Doctor Brock farias, [place] POCT GLUCOSE (AUTOMATED) 2023-03-28 12:30:00 Fany [facility] POCT GLUCOSE (AUTOMATED) 2023-03-28 12:30:00 Elisa Soares [facility] PHOSPHORUS 2023-03-28 08:50:00 Dariana Mcfarlane [facility] MAGNESIUM 2023-03-28 08:50:00 Denys [facility] BASIC METABOLIC PANEL (NA, K, CL, CO2, GLUCOSE, BUN, CREATININE, CA) 2023-03-28 08:50:00 Denys [facility] CBC WITH DIFF 2023-03-28 08:50:00 Denys [facility] PHOSPHORUS 2023-03-28 08:50:00 Denys [facility] MAGNESIUM 2023-03-28 08:50:00 Denys [facility] BASIC METABOLIC PANEL (NA, K, CL, CO2, GLUCOSE, BUN, CREATININE, CA) 2023-03-28 08:50:00 Denys [facility] CBC WITH DIFF 2023-03-28 08:50:00 Denys [facility] POCT GLUCOSE (AUTOMATED) 2023-03-28 01:06:00 Fany [facility] POCT GLUCOSE (AUTOMATED) 2023-03-28 01:06:00 Fany [facility] POCT GLUCOSE (AUTOMATED) 2023-03-27 21:38:00 Fany [facility] POCT GLUCOSE (AUTOMATED) 2023-03-27 21:38:00 Fany [facility] POCT GLUCOSE (AUTOMATED) 2023-03-27 16:47:00 Fany [facility] POCT GLUCOSE (AUTOMATED) 2023-03-27 16:47:00 Fany [facility] ACTIVATED PARTIAL THRMPLAS AMANUEL 2023-03-27 14:55:00 João Toth [facility] ACTIVATED PARTIAL THRMPLAS AMANUEL 2023-03-27 14:55:00 João Toth [facility] POCT GLUCOSE (AUTOMATED) 2023-03-27 13:13:00 Elisa Soares [facility] POCT GLUCOSE (AUTOMATED) 2023-03-27 13:13:00 Elisa Soares [facility] PHOSPHORUS 2023-03-27 10:15:00 [facility]23-03-27 10:15:[address] [facility] BASIC METABOLIC PANEL (NA, K, CL, CO2, GLUCOSE, BUN, CREATININE, CA) 2023-03-27 10:15:00 Reji Del Toro [facility] CBC WITH DIFF 2023-03-27 10:15:00 [facility] 2023-03-27 10:15:00 [facility] 2023-03-27 10:15:[address] [facility] BASIC METABOLIC PANEL (NA, K, CL, CO2, GLUCOSE, BUN, CREATININE, CA) 2023-03-27 10:15:00 Reji Del Toro [facility] CBC WITH DIFF 2023-03-27 10:15:00 Reji Del Toro U [facility] ACTIVATED PARTIAL THRMPLAS AMANUEL 2023-03-27 03:32:00 João Toth [facility] ACTIVATED PARTIAL THRMPLAS AMANUEL 2023-03-27 03:32:00 João Toth [facility] POCT GLUCOSE (AUTOMATED) 2023-03-27 02:59:00 Elisa Soares [facility] POCT GLUCOSE (AUTOMATED) 2023-03-27 02:59:00 Fany [facility] POCT GLUCOSE (AUTOMATED) 2023-03-26 21:45:00 Fany [facility] POCT GLUCOSE (AUTOMATED) 2023-03-26 21:45:00 Fany [facility] ACTIVATED PARTIAL THRMPLAS AMANUEL 2023-03-26 21:34:00 João Toth [facility] ACTIVATED PARTIAL THRMPLAS AMANUEL 2023-03-26 21:34:00 João Toth [facility] POCT GLUCOSE (AUTOMATED) 2023-03-26 17:37:00 Fany, [facility] POCT GLUCOSE (AUTOMATED) 2023-03-26 17:37:00 Fany, [facility] POCT GLUCOSE (AUTOMATED) 2023-03-26 12:18:00 Fany, [facility] POCT GLUCOSE (AUTOMATED) 2023-03-26 12:18:00 Fany, [facility] ACTIVATED PARTIAL THRMPLAS AMANUEL 2023-03-26 11:12:00 Janey João [facility] ACTIVATED PARTIAL THRMPLAS AMANUEL 2023-03-26 11:12:00 João Toth [facility] PHOSPHORUS 2023-03-26 06:27:00 [facility]23-03-26 06:27:00 Reji Del Toro [facility] BASIC METABOLIC PANEL (NA, K, CL, CO2, GLUCOSE, BUN, CREATININE, CA) 2023-03-26 06:27:00 Reji Del Toro [facility] CBC WITH DIFF 2023-03-26 06:27:00 Reji Del Toro U [facility] ACTIVATED PARTIAL THRMPLAS AMANUEL 2023-03-26 06:27:00 João Toth [facility] PHOSPHORUS 2023-03-26 06:27:00 [facility] 2023-03-26 06:27:[address] [facility] BASIC METABOLIC PANEL (NA, K, CL, CO2, GLUCOSE, BUN, CREATININE, CA) 2023-03-26 06:27:00 Reji Del Toro [facility] CBC WITH DIFF 2023-03-26 06:27:00 Reji Del Toro [facility] ACTIVATED PARTIAL THRMPLAS AMANUEL 2023-03-26 06:27:00 João Tothooq [facility] POCT GLUCOSE (AUTOMATED) 2023-03-26 03:12:00 Fany [facility] POCT GLUCOSE (AUTOMATED) 2023-03-26 03:12:00 Fany [facility] ACTIVATED PARTIAL THRMPLAS AMANUEL 2023-03-25 23:27:00 João Toth [facility] ACTIVATED PARTIAL THRMPLAS AMANUEL 2023-03-25 23:27:00 João Toth [facility] POCT GLUCOSE (AUTOMATED) 2023-03-25 23:07:00 Fany [facility] POCT GLUCOSE (AUTOMATED) 2023-03-25 23:07:00 Fany [facility] POCT GLUCOSE (AUTOMATED) 2023-03-25 20:42:00 Fany [facility] POCT GLUCOSE (AUTOMATED) 2023-03-25 20:42:00 Fany [facility] BASIC METABOLIC PANEL (NA, K, CL, CO2, GLUCOSE, BUN, CREATININE, CA) 2023-03-25 20:22:00 João Toth [facility] CBC WITH DIFF 2023-03-25 20:22:00 Shruthi Toth [facility] BASIC METABOLIC PANEL (NA, K, CL, CO2, GLUCOSE, BUN, CREATININE, CA) 2023-03-25 20:22:00 João Toth [facility] CBC WITH DIFF 2023-03-25 20:22:00 Shruthi Toth [facility] INTUBATION 2023-03-25 17:50:00 Evy Krishnamurthy [facility] CAROTID ANGIOGRAPHY 2023-03-25 17:11:00 Jerome Soares [facility] CAROTID STENTING 2023-03-25 17:11:00 Jerome Soares [facility] ANGIOPLASTY 2023-03-25 17:11:00 Fany Jerome [facility] CAROTID ANGIOGRAPHY 2023-03-25 17:11:00 Fany [facility] CAROTID STENTING 2023-03-25 17:11:00 Jerome Soares [facility] ANGIOPLASTY 2023-03-25 17:11:00 Jerome Soares [facility] POCT GLUCOSE (AUTOMATED) 2023-03-25 15:52:00 Fany [facility] POCT GLUCOSE (AUTOMATED) 2023-03-25 15:52:00 Fany [facility] POCT GLUCOSE (AUTOMATED) 2023-03-25 12:35:00 Fany [facility] POCT GLUCOSE (AUTOMATED) 2023-03-25 12:35:00 Fany [facility] PHOSPHORUS 2023-03-25 06:40:00 [facility] 2023-03-25 06:40:00 [facility] BASIC METABOLIC PANEL (NA, K, CL, CO2, GLUCOSE, BUN, CREATININE, CA) 2023-03-25 06:40:00 Reji Del Toro [facility] CBC WITH DIFF 2023-03-25 06:40:00 Reji Del Toro U [facility] ACTIVATED PARTIAL THRMPLAS AMANUEL 2023-03-25 06:40:00 João Toth [facility] PHOSPHORUS 2023-03-25 06:40:00 [facility] 2023-03-25 06:40:00 [facility] BASIC METABOLIC PANEL (NA, K, CL, CO2, GLUCOSE, BUN, CREATININE, CA) 2023-03-25 06:40:00 Reji Del Toro [facility] CBC WITH DIFF 2023-03-25 06:40:00 Reji Del Toro U [facility] ACTIVATED PARTIAL THRMPLAS AMANUEL 2023-03-25 06:40:00 João Toth [facility] POCT GLUCOSE (AUTOMATED) 2023-03-25 01:05:00 Fany [facility] POCT GLUCOSE (AUTOMATED) 2023-03-25 01:05:00 Fany [facility] POCT GLUCOSE (AUTOMATED) 2023-03-24 22:34:00 Fany [facility] POCT GLUCOSE (AUTOMATED) 2023-03-24 22:34:00 Fany [facility] ACTIVATED PARTIAL THRMPLAS AMANUEL 2023-03-24 22:05:00 João Toth [facility] ACTIVATED PARTIAL THRMPLAS AMANUEL 2023-03-24 22:05:00 João Toth [facility] POCT GLUCOSE (AUTOMATED) 2023-03-24 20:01:00 Fany [facility] POCT GLUCOSE (AUTOMATED) 2023-03-24 20:01:00 Fany [facility] AC PANEL 21 + LACTIC ACID 2023-03-24 18:04:00 [facility] AC PANEL 21 + LACTIC ACID 2023-03-24 18:04:00 [facility] POCT GLUCOSE (AUTOMATED) 2023-03-24 16:59:00 Fany [facility] POCT GLUCOSE (AUTOMATED) 2023-03-24 16:59:00 Fany [facility] ACTIVATED PARTIAL THRMPLAS AMANUEL 2023-03-24 15:13:00 João Toth [facility] HB ABO GROUPING 2023-03-24 15:13:00 Shruthi Toth [facility] ACTIVATED PARTIAL THRMPLAS AMANUEL 2023-03-24 15:13:00 João Toth [facility] HB ABO GROUPING 2023-03-24 15:13:00 Shruthi Toth [facility] POCT GLUCOSE (AUTOMATED) 2023-03-24 13:40:00 Fany [facility] POCT GLUCOSE (AUTOMATED) 2023-03-24 13:40:00 Elisa Soares [facility] PHOSPHORUS 2023-03-24 10:46:00 [facility] 2023-03-24 10:46:00 Reji Del Toro [facility] BASIC METABOLIC PANEL (NA, K, CL, CO2, GLUCOSE, BUN, CREATININE, CA) 2023-03-24 10:46:00 Reji Del Toro [facility] CBC WITH DIFF 2023-03-24 10:46:00 [facility] 2023-03-24 10:46:00 Reji [facility] MAGNESIUM 2023-03-24 10:46:00 [facility] BASIC METABOLIC PANEL (NA, K, CL, CO2, GLUCOSE, BUN, CREATININE, CA) 2023-03-24 10:46:00 Reji Del Toro [facility] CBC WITH DIFF 2023-03-24 10:46:00 Reji Del Toro U [facility] POCT GLUCOSE (AUTOMATED) 2023-03-24 01:35:00 Fany [facility] POCT GLUCOSE (AUTOMATED) 2023-03-24 01:35:00 Fany [facility] POCT GLUCOSE (AUTOMATED) 2023-03-23 22:42:00 Fany [facility] POCT GLUCOSE (AUTOMATED) 2023-03-23 22:42:00 Fany, [facility] POCT GLUCOSE (AUTOMATED) 2023-03-23 18:41:00 Fany, [facility] POCT GLUCOSE (AUTOMATED) 2023-03-23 18:41:00 Fany, [facility] POCT GLUCOSE (AUTOMATED) 2023-03-23 13:02:00 Fany, [facility] POCT GLUCOSE (AUTOMATED) 2023-03-23 13:02:00 Fany, Sh ariq [facility] PHOSPHORUS 2023-03-23 10:35:00 Reji [facility] 2023-03-23 10:35:00 Reji Del Toro [facility] BASIC METABOLIC PANEL (NA, K, CL, CO2, GLUCOSE, BUN, CREATININE, CA) 2023-03-23 10:35:00 Reji Del Toro [facility] CBC WITH DIFF 2023-03-23 10:35:00 [facility] 2023-03-23 10:35:00 [facility] MAGNES[facility]UM 2023-03-23 10:35:00 Reji Del Toro [facility] BASIC METABOLIC PANEL (NA, K, CL, CO2, GLUCOSE, BUN, CREATININE, CA) 2023-03-23 10:35:00 Reji Del Toro [facility] CBC WITH DIFF 2023-03-23 10:35:00 Reji Del Toro U [facility] POCT GLUCOSE (AUTOMATED) 2023-03-23 01:40:00 Fany [facility] POCT GLUCOSE (AUTOMATED) 2023-03-23 01:40:00 Fany [facility] POCT GLUCOSE (AUTOMATED) 2023-03-22 22:38:00 Fany [facility] POCT GLUCOSE (AUTOMATED) 2023-03-22 22:38:00 Fany [facility] POCT GLUCOSE (AUTOMATED) 2023-03-22 17:00:00 Fany [facility] POCT GLUCOSE (AUTOMATED) 2023-03-22 17:00:00 Fany, [facility] POCT GLUCOSE (AUTOMATED) 2023-03-22 17:00:00 Fany [facility] XR CHEST 1 VW 2023-03-22 13:47:00 Jett Patel [facility] XR CHEST 1 VW 2023-03-22 13:47:00 [facility] 2023-03-22 13:47:00 Jett Patel [facility] POCT GLUCOSE (AUTOMATED) 2023-03-22 12:52:00 Fany [facility] POCT GLUCOSE (AUTOMATED) 2023-03-22 12:52:00 Fany, [facility] POCT GLUCOSE (AUTOMATED) 2023-03-22 12:52:00 Fany, [facility] POCT GLUCOSE (AUTOMATED) 2023-03-22 10:44:00 Fany, [facility] POCT GLUCOSE (AUTOMATED) 2023-03-22 10:44:00 Fany, [facility] POCT GLUCOSE (AUTOMATED) 2023-03-22 10:44:00 Fany [facility] PHOSPHORUS 2023-03-22 09:25:00 Nkechi Lopez [facility] MAGNESIUM 2023-03-22 09:25:00 Nkechi Lopez [facility] BASIC METABOLIC PANEL (NA, K, CL, CO2, GLUCOSE, BUN, CREATININE, CA) 2023-03-22 09:25:00 Jennifer Lopez [facility] CBC WITH DIFF 2023-03-22 09:25:00 Nkechi Lopez [facility] POCT GLUCOSE (AUTOMATED) 2023-03-22 09:25:00 Elisa Soares [facility] PHOSPHORUS 2023-03-22 09:25:00 Nkechi Lopez [facility] MAGNESIUM 2023-03-22 09:25:00 Nkechi Lopez [facility] BASIC METABOLIC PANEL (NA, K, CL, CO2, GLUCOSE, BUN, CREATININE, CA) 2023-03-22 09:25:00 Jennifer Lopez [facility] CBC WITH DIFF 2023-03-22 09:25:00 Nkechi Lopez [facility] POCT GLUCOSE (AUTOMATED) 2023-03-22 09:25:00 Fany [facility] PHOSPHORUS 2023-03-22 09:25:00 Nkechi Lopez [facility] MAGNESIUM 2023-03-22 09:25:00 Nkechi Lopez [facility] BASIC METABOLIC PANEL (NA, K, CL, CO2, GLUCOSE, BUN, CREATININE, CA) 2023-03-22 09:25:00 Jennifer Lopez [facility] CBC WITH DIFF 2023-03-22 09:25:00 Nkechi Lopez [facility] POCT GLUCOSE (AUTOMATED) 2023-03-22 09:25:00 Elisa Soares [facility] AC PANEL 21 + LACTIC ACID 2023-03-22 07:11:00 Maribell [facility] AC PANEL 21 + LACTIC ACID 2023-03-22 07:11:00 Maribell [facility] AC PANEL 21 + LACTIC ACID 2023-03-22 07:11:00 Maribell [facility] POCT GLUCOSE (AUTOMATED) 2023-03-22 05:06:00 Fany [facility] POCT GLUCOSE (AUTOMATED) 2023-03-22 05:06:00 Fany [facility] POCT GLUCOSE (AUTOMATED) 2023-03-22 05:06:00 Elisa Soares [facility] AC PANEL 21 + LACTIC ACID 2023-03-22 02:57:00 Maribell [facility] AC PANEL 21 + LACTIC ACID 2023-03-22 02:57:00 Maribell [facility] AC PANEL 21 + LACTIC ACID 2023-03-22 02:57:00 Maribell [facility] AC PANEL 20 + LACTIC ACID 2023-03-22 00:27:00 Maribell [facility] AC PANEL 20 + LACTIC ACID 2023-03-22 00:27:00 Maribell [facility] AC PANEL 20 + LACTIC ACID 2023-03-22 00:27:00 Maribell [facility] POCT GLUCOSE (AUTOMATED) 2023-03-21 21:41:00 Elisa Soares [facility] POCT GLUCOSE (AUTOMATED) 2023-03-21 21:41:00 Elisa Soares [facility] POCT GLUCOSE (AUTOMATED) 2023-03-21 21:41:00 Elisa Soares [facility] PHOSPHORUS 2023-03-21 21:36:00 [facility]-21 21:36:00 Maribell [facility] BASIC METABOLIC PANEL (NA, K, CL, CO2, GLUCOSE, BUN, CREATININE, CA) 2023-03-21 21:36:00 Maribell [facility] PHOSPHORUS 2023-03-21 21:36:00 Maribell [facility] MAGNESIUM 2023-03-21 21:36:00 Maribell [facility] BASIC METABOLIC PANEL (NA, K, CL, CO2, GLUCOSE, BUN, CREATININE, CA) 2023-03-21 21:36:00 Maribell [facility] PHOSPHORUS 2023-03-21 21:36:00 [facility] 2023-03-21 21:36:00 Maribell [facility] BASIC METABOLIC PANEL (NA, K, CL, CO2, GLUCOSE, BUN, CREATININE, CA) 2023-03-21 21:36:00 Maribell [facility] FL TIME OR (NON-REPORTABLE) 2023-03-21 21:19:16 João Toth [facility] FL TIME OR (NON-REPORTABLE) 2023-03-21 21:19:16 João Toth [facility] FL TIME OR (NON-REPORTABLE) 2023-03-21 21:19:16 João Toth [facility] AC PANEL 20 + LACTIC ACID 2023-03-21 21:14:00 Maribell [facility] AC PANEL 20 + LACTIC ACID 2023-03-21 21:14:00 Maribell [facility] AC PANEL 20 + LACTIC ACID 2023-03-21 21:14:00 Maribell [facility] CBC WITH DIFF 2023-03-21 20:54:00 Maribell [facility] PROTHROMBIN TIME / INR 2023-03-21 20:54:00 Sean Reyna [facility] ACTIVATED PARTIAL THRMPLAS AMANUEL 2023-03-21 20:54:00 Maribell [facility] MRSA / MSSA SCREEN BY PCR, [facility] 2023-03-21 20:54:00 Jennifer Lopez [facility] CBC WITH DIFF 2023-03-21 20:54:00 Maribell [facility] PROTHROMBIN TIME / INR 2023-03-21 20:54:00 Sean Reyna [facility] ACTIVATED PARTIAL THRMPLAS AMANUEL 2023-03-21 20:54:00 Maribell [facility] MRSA / MSSA SCREEN BY PCR, [facility] 2023-03-21 20:54:00 Jennifer Lopez [facility] CBC WITH DIFF 2023-03-21 20:54:00 Maribell [facility] PROTHROMBIN TIME / INR 2023-03-21 20:54:00 Sean Reyna [facility] ACTIVATED PARTIAL THRMPLAS AMANUEL 2023-03-21 20:54:00 Maribell [facility] MRSA / MSSA SCREEN BY PCR, [facility] 2023-03-21 20:54:00 Jennifer Lopez [facility] POCT GLUCOSE (AUTOMATED) 2023-03-21 20:44:00 [facility] 2023-03-21 20:44:00 Elisa Soares [facility] POCT GLUCOSE (AUTOMATED) 2023-03-21 20:44:00 [facility] 2023-03-21 15:41:00 Jerome Soares [facility] VASCULAR STENTING 2023-03-21 15:41:00 Jerome Soares [facility] ENDOVASCULAR LOWER EXTREMITY ANGIOPLASTY 2023-03-21 15:41:00 Jerome Soares [facility] ARTERIOGRAM 2023-03-21 15:41:00 Jerome Soares [facility] VASCULAR STENTING 2023-03-21 15:41:00 Jerome Soares [facility] ENDOVASCULAR LOWER EXTREMITY ANGIOPLASTY 2023-03-21 15:41:00 Jerome Soares [facility] POCT GLUCOSE (AUTOMATED) 2023-03-21 14:48:00 Fany [facility] POCT GLUCOSE (AUTOMATED) 2023-03-21 14:48:00 Fany [facility] POCT GLUCOSE (AUTOMATED) 2023-03-21 14:48:00 Fany [facility] CONSENT/REFUSAL FOR DIAGNOSIS AND TREATMENT 2023-03-21 13:54:37 Doctor Unassigned, [place] [facility] CONSENT/REFUSAL FOR DIAGNOSIS AND TREATMENT 2023-03-21 13:54:37 Doctor Unassigned, [place] [facility] CONSENT/REFUSAL FOR DIAGNOSIS AND TREATMENT 2023-03-21 13:54:37 Doctor Unassigned, [place] [facility] ASSIGNMENT OF BENEFITS 2023-03-21 13:53:03 Docto r Unassigned, [place] [facility] ASSIGNMENT OF BENEFITS 2023-03-21 13:53:03 Docto r Unassigned, [place] [facility] ASSIGNMENT OF BENEFITS 2023-03-21 13:53:03 Docto r Unassigned, [place] [facility] HOME HEALTH - OTHER 2023-03-15 05:01:00 Doctor Brock farias, [place] [facility] ASSIGNMENT OF BENEFITS 2023-03-08 20:40:56 Docto r Unassigned, [place] [facility] POCT GLUCOSE (AUTOMATED) 2023-02-21 22:01:00 Jamal Meredith [facility] POCT GLUCOSE (AUTOMATED) 2023-02-21 16:55:00 Jamal Meredith [facility] CAROTID DUPLEX BILATERAL - BY VASCULAR LAB 2023-02-21 16:46:00 Bladimir Ferraro [facility] POCT GLUCOSE (AUTOMATED) 2023-02-21 13:09:00 Jamal Meredith [facility] TROPONIN I 2023-02-21 10:40:00 [facility] HORMONE 2023-02-21 10:40:00 Sam Meredith [facility] LIPID PANEL (64860)(TOTAL CHOLESTEROL, TRIGLYCERIDES, HDL) 2023-02-21 10:40:00 Sam Meredith [facility] GLYCOSYLATED HEMOGLOBIN (A1C) 2023-02-21 10:40:00 Sam Meredith [facility] LACTIC ACID WHOLE BLOOD 2023-02-21 04:33:00 Do betty Culp [facility] XR HIPS 3 VW LEFT 2023-02-21 02:42:18 Ramírez Culp [facility] LACTIC ACID WHOLE BLOOD 2023-02-21 01:56:00 Do betty Culp [facility] LIPASE 2023-02-21 01:43:00 Ramírez Culp [facility] TROPONIN I 2023-02-21 01:43:00 Ramírez Culp [facility] COMP. METABOLIC PANEL (18643) 2023-02-21 01:43:00 Ramírez Culp [facility] CBC WITH DIFF 2023-02-21 01:43:00 Ramírez Culp [facility] URINALYSIS 2023-02-21 01:43:[address]ulp [facility] N-TERMINAL PRO-BNP 2023-02-21 01:43:00 Ramírez Culp [facility] URINE DRUG (IMMUNOASSAY) - COMPREHENSIVE DRUG SCREEN W/O REFLEX 2023-02-21 01:43:00 Ramírez Culp [facility] PATIENT FINANCIAL RESPONSIBILITY - ALL FORMS 2023-02-08 05:01:00 Doctor Unassigned, [place] [facility] - OTHER 2023-01-28 05:01:00 Doctor U nassigned, [place] [facility] PATIENT QUESTIONNAIRE 2023-01-19 05:01:00 Doctor Unassigned, [place] [facility] HOME HEALTH 485 2023-01-09 05:01:00 Doctor Unass igned, [place] [facility] PATIENT QUESTIONNAIRE 2022-12-21 05:01:00 Doctor Unassigned, [place] [facility] HEALTH - OTHER 2022-12-17 05:01:00 Doctor U matthewsigned, [place] [facility] - OTHER 2022-12-14 05:01:00 Doctor U nassigned, [place] [facility] ASSIGNMENT OF BENEFITS 2022-12-09 13:47:13 Docto r Unassigned, [place] [facility] POCT URINALYSIS 2022-12-09 00:00:00 [facility] 2022-11-10 05:01:00 Doctor Unass igned, [place] [facility] REFERRAL- REQUEST/RESPONSE 2022-10-28 05:01:00 D octor Unassigned, [place] [facility] EXTERNAL PROVIDER RECORDS 2022-10-15 05:01:00 Do ctor Unassigned, [place] [facility] MAGNESIUM 2022-09-28 17:16:00 Brian Israel [facility] FERRITIN SERUM 2022-09-28 17:16:00 Brian Israel [facility] FREE T4 2022-09-28 17:16:00 Brian Israel [facility] THYROID STIMULATING HORMONE 2022-09-28 17:16:00 Brian Israel [facility] IRON PANEL 2022-09-28 17:16:00 Brian Israel [facility] GLYCOSYLATED HEMOGLOBIN (A1C) 2022-09-28 17:16:00 Brian Israel [facility] PATIENT QUESTIONNAIRE 2022-09-28 05:01:00 Doctor Unassigned, [place] [facility] PHYSICIAN ORDERS 2022-09-27 05:01:00 Doctor Valente signed, [place] [facility] AUTHORIZATION FOR RELEASE OF PHI 2022-09-22 05:01:00 Doctor Unassigned, [place] [facility] HEALTH - OTHER 2022-09-18 05:01:00 Doctor Brock farias, [place] [facility] US RETROPERITONEAL COMPLETE 2022-09-13 17:22:29 Jamshid Early [facility] HOME HEALTH 485 2022-09-11 06:01:00 Doctor Unass igned, [place] [facility] EXTERNAL PROVIDER - ADC CARDIOLOGY 2022-09-07 06:01:00 Doctor Unassigned, [place] [facility] HOME HEALTH - OTHER 2022-08-03 06:01:00 Doctor U nassigned, [place] [facility] POCT GLUCOSE (AUTOMATED) 2022-07-05 22:16:00 Patel Betancur [facility] POCT GLUCOSE (AUTOMATED) 2022-07-05 17:17:00 Patel Betancur [facility] POCT GLUCOSE (AUTOMATED) 2022-07-05 13:18:00 Patel Betancur [facility] MAGNESIUM 2022-07-05 09:26:00 Bladimir Ferraro [facility] BASIC METABOLIC PANEL (NA, K, CL, CO2, GLUCOSE, BUN, CREATININE, CA) 2022-07-05 09:26:00 Bladimir Ferraro [facility] CBC WITHOUT DIFF 2022-07-05 09:26:00 Bladimir Ferraro [facility] N-TERMINAL PRO-BNP 2022-07-05 09:26:00 Bladimir Ferraro [facility] POCT GLUCOSE (AUTOMATED) 2022-07-05 09:25:00 Patel Betancur [facility] POCT GLUCOSE (AUTOMATED) 2022-07-05 06:07:00 Patel Betancur [facility] POCT GLUCOSE (AUTOMATED) 2022-07-05 02:18:00 Patel Betancur [facility] POCT GLUCOSE (AUTOMATED) 2022-07-04 22:20:00 Patel Betancur [facility] POCT GLUCOSE (AUTOMATED) 2022-07-04 21:16:00 Patel Betancur [facility] POCT GLUCOSE (AUTOMATED) 2022-07-04 17:07:00 Patel Betancur [facility] POCT GLUCOSE (AUTOMATED) 2022-07-04 13:18:00 Patel Betancur [facility] MAGNESIUM 2022-07-04 10:21:[address] [facility] BASIC METABOLIC PANEL (NA, K, CL, CO2, GLUCOSE, BUN, CREATININE, CA) 2022-07-04 10:21:[address] [facility] N-TERMINAL PRO-BNP 2022-07-04 10:21:00 [facility]) 2022-07-04 06:31:00 [facility]) 2022-07-04 01:48:00 [facility] (AUTOMATED) 2022-07-03 22:08:00 [facility] 2022-07-03 19:39:[address] [facility] TROPONIN I 2022-07-03 19:39:[address] [facility] BASIC METABOLIC PANEL (NA, K, CL, CO2, GLUCOSE, BUN, CREATININE, CA) 2022-07-03 19:39:[address] [facility] N-TERMINAL PRO-BNP 2022-07-03 19:39:[address] [facility] POCT GLUCOSE (AUTOMATED) 2022-07-03 17:16:00 Gypsy [facility] CBC WITH DIFF 2022-07-03 16:20:00 [facility] POCT GLUCOSE (AUTOMATED) 2022-07-03 13:28:00 [facility] 2022-07-03 10:52:00 [facility]) 2022-07-03 06:08:00 [facility] POCT GLUCOSE (AUTOMATED) 2022-07-03 02:16:00 Gy[facility] POCT GLUCOSE (AUTOMATED) 2022-07-02 22:11:00 [facility] POCT GLUCOSE (AUTOMATED) 2022-07-02 17:11:00 [facility] 2022-07-02 13:15:00 Patel Betancur [facility] MAGNESIUM 2022-07-02 10:20:00 Bladimir Ferraro [facility] TROPONIN I 2022-07-02 10:20:00 [facility]OLIC PANEL (NA, K, CL, CO2, GLUCOSE, BUN, CREATININE, CA) 2022-07-02 10:20:[address] [facility] LIPID PANEL (59751)(TOTAL CHOLESTEROL, TRIGLYCERIDES, HDL) 2022-07-02 10:20:[address] [facility] CBC WITH DIFF 2022-07-02 10:20:00 Ronan [facility] N-TERMINAL PRO-BNP 2022-07-02 10:20:[address] [facility] POCT GLUCOSE (AUTOMATED) 2022-07-02 10:18:00 Gypsy [facility] POCT GLUCOSE (AUTOMATED) 2022-07-02 05:15:00 Gypsy [facility] POCT GLUCOSE (AUTOMATED) 2022-07-02 02:13:00 [facility] 2022-07-01 21:47:00 Patel Betancur [facility] POCT GLUCOSE (AUTOMATED) 2022-07-01 17:29:00 [facility]SE ([facility]OMATED) 2022-07-01 13:35:00 [facility]SE ([facility]OMATED) 2022-07-01 09:34:00 Patel Betancur [facility] PHOSPHORUS 2022-07-01 09:32:00 Patel Betancur [facility] MAGNESIUM 2022-07-01 09:32:[address] [facility] TROPONIN I 2022-07-01 09:32:[address] [facility] HEPATIC FUNCTION PANEL (16788) (ALB,T.PRO,BILI T,BU/BC,ALT,AST,ALK PHOS) 2022-07-01 09:32:00 Patel Betancur [facility] BASIC METABOLIC PANEL (NA, K, CL, CO2, GLUCOSE, BUN, CREATININE, CA) 2022-07-01 09:32:00 Patel Betancur [facility] CBC WITH DIFF 2022-07-01 09:32:00 Patel Betancur [facility] N-TERMINAL PRO-BNP 2022-07-01 09:32:00 Patel Betancur [facility] POCT GLUCOSE (AUTOMATED) 2022-07-01 05:26:00 Gypsy [facility] POCT GLUCOSE (AUTOMATED) 2022-07-01 01:58:00 Patel Betancur [facility] POCT GLUCOSE (AUTOMATED) 2022-06-30 22:26:00 Gypsy Patel [facility] BLOOD CULTURE SCREEN 2022-06-30 18:43:00 Lisa Betancur [facility] BLOOD CULTURE SCREEN 2022-06-30 18:17:00 Lisa Betancur [facility] MRSA / MSSA SCREEN BY RHEA AGUDELO 2022-06-30 18:17:00 Patel Betancur [facility] POCT GLUCOSE (AUTOMATED) 2022-06-30 17:52:00 [facility]SE ([facility]OMATED) 2022-06-30 14:33:00 Patel Betancur [facility] XR CHEST 1 VW 2022-06-30 13:42:[address] [facility] HB ECG ROUTINE & RHYTHM STRIP 2022-06-30 13:28:23 Nayely Jarvis [facility] POCT GLUCOSE (AUTOMATED) 2022-06-30 10:14:00 Patel Betancur [facility] PHOSPHORUS 2022-06-30 10:09:00 Patel Betancur [facility] MAGNESIUM 2022-06-30 10:09:00 Patel Betancur [facility] BASIC METABOLIC PANEL (NA, K, CL, CO2, GLUCOSE, BUN, CREATININE, CA) 2022-06-30 10:09:00 Patel Betancur [facility] CBC WITH DIFF 2022-06-30 10:09:00 Patel Betancur [facility] N-TERMINAL PRO-BNP 2022-06-30 10:09:00 Patel Betancur [facility] POCT GLUCOSE (AUTOMATED) 2022-06-30 02:20:00 Gypsy [facility] POCT GLUCOSE (AUTOMATED) 2022-06-29 22:15:00 Gypsy [facility] POCT GLUCOSE (AUTOMATED) 2022-06-29 17:14:00 Gypsy [facility] TRANSTHORACIC ECHO (TTE) COMPLETE 2022-06-29 15:12:00 Sushil Persaud [facility] POCT GLUCOSE (AUTOMATED) 2022-06-29 13:30:00 Patel Betancur [facility] PHOSPHORUS 2022-06-29 10:52:00 Patel Betancur [facility] MAGNESIUM 2022-06-29 10:52:00 Patel Betancur [facility] TROPONIN I 2022-06-29 10:52:00 Nayely Jarvis [facility] HEPATIC FUNCTION PANEL (58445) (ALB,T.PRO,BILI T,BU/BC,ALT,AST,ALK PHOS) 2022-06-29 10:52:00 Nayely Jarvis [facility] BASIC METABOLIC PANEL (NA, K, CL, CO2, GLUCOSE, BUN, CREATININE, CA) 2022-06-29 10:52:00 Patel Betancur [facility] N-TERMINAL PRO-BNP 2022-06-29 10:52:00 Nayely Jarvis [facility] PROCALCITONIN 2022-06-29 10:52:00 Nayely Jarvis [facility] AC VBG + LACTIC ACID 2022-06-29 10:52:00 Acacia Jarvis [facility] POCT GLUCOSE (AUTOMATED) 2022-06-29 07:05:00 Patel Betancur [facility] XR CHEST 1 VW 2022-06-29 06:51:00 Nayely Jarvis [facility] POCT GLUCOSE (AUTOMATED) 2022-06-29 02:24:00 Patel Betancur [facility] POCT GLUCOSE (AUTOMATED) 2022-06-28 22:30:00 Patel Betancur [facility] POCT GLUCOSE (AUTOMATED) 2022-06-28 17:12:00 Patel Betancur [facility] POCT GLUCOSE (AUTOMATED) 2022-06-28 13:34:00 Patel Betancur [facility] PHOSPHORUS 2022-06-28 10:19:[address] [facility] MAGNESIUM 2022-06-28 10:19:00 Patel Betancur [facility] TROPONIN I 2022-06-28 10:19:00 Nayely Jarvis [facility] BASIC METABOLIC PANEL (NA, K, CL, CO2, GLUCOSE, BUN, CREATININE, CA) 2022-06-28 10:19:00 Patel Betancur [facility] N-TERMINAL PRO-BNP 2022-06-28 10:19:00 Patel Betancur [facility] POCT GLUCOSE (AUTOMATED) 2022-06-28 10:18:00 Patel Betancur [facility] POCT GLUCOSE (AUTOMATED) 2022-06-28 05:53:00 [facility]SE ([facility]OMATED) 2022-06-28 02:12:00 Patel Betancur [facility] POCT GLUCOSE (AUTOMATED) 2022-06-27 22:09:00 Patel Betancur [facility] POCT GLUCOSE (AUTOMATED) 2022-06-27 17:07:00 [facility] PO[facility] GLUCOSE (AUTOMATED) 2022-06-27 14:02:00 Patel Betancur [facility] PHOSPHORUS 2022-06-27 10:55:00 Patel Betancur [facility] MAGNESIUM 2022-06-27 10:55:[address] [facility] TROPONIN I 2022-06-27 10:55:[address] [facility] BASIC METABOLIC PANEL (NA, K, CL, CO2, GLUCOSE, BUN, CREATININE, CA) 2022-06-27 10:55:00 Patel Betancur [facility] CBC WITH DIFF 2022-06-27 10:55:00 Patel Betancur [facility] N-TERMINAL PRO-BNP 2022-06-27 10:55:00 Patel Betancur [facility] POCT GLUCOSE (AUTOMATED) 2022-06-27 10:54:00 Gypsy [facility] POCT GLUCOSE (AUTOMATED) 2022-06-27 05:44:00 Gypsy Patel [facility] POCT GLUCOSE (AUTOMATED) 2022-06-27 02:24:00 Patel Betancur [facility] CT ABDOMEN PELVIS WO CONTRAST 2022-06-26 19:55:00 Ramírez Culp [facility] BLOOD CULTURE SCREEN 2022-06-26 19:09:00 Rhiannon Culp [facility] XR CHEST 1 VW 2022-06-26 19:05:13 Ramírez Culp [facility] LIPASE 2022-06-26 18:07:[address] [facility] MAGNESIUM 2022-06-26 18:07:00 Ramírez Culp [facility] TROPONIN I 2022-06-26 18:07:[address] [facility] COMP. METABOLIC PANEL ([id number]) 2022-06-26 18:07:00 Ramírez Culp [facility] CBC WITH DIFF 2022-06-26 18:07:00 Ramírez Culp [facility] PROTHROMBIN TIME / INR 2022-06-26 18:07:00 Dave Culp [facility] ACTIVATED PARTIAL THRMPLAS AMANUEL 2022-06-26 18:07:00 Ramírez Culp [facility] URINALYSIS 2022-06-26 18:07:00 Ramírez Culp [facility] URINE CULTURE 2022-06-26 18:07:00 [facility] 2022-06-26 18:07:00 Arvind Culp [facility] N-TERMINAL PRO-BNP 2022-06-26 18:07:00 Ramírez Culp [facility] LACTIC ACID WHOLE BLOOD 2022-06-26 18:07:00 Do betty Culp [facility] COVID-19 (ID NOW RAPID TESTING) 2022-06-26 18:07:00 Ramírez Culp [facility] LAB ONLY COVID INTERPRETATION 2022-06-26 18:07:00 Ramírez Culp [facility] BLOOD CULTURE SCREEN 2022-06-26 18:04:00 Rhiannon Culp [facility] HB ECG ROUTINE & RHYTHM STRIP 2022-06-26 17:55:44 Ramírez Culp [facility] CONSENT/REFUSAL FOR DIAGNOSIS AND TREATMENT 2022-06-26 17:34:38 Doctor Unassigned, [place] [facility] HEALTH - OTHER 2022-05-20 06:01:00 Doctor Brock farias, [place] [facility] FLU VACC(),65+YR,0.5 ML,IM,ADJUVANTED,QUAD(FLUA D) 2022-05-10 20:09:55 Brian Israel [facility] PATIENT QUESTIONNAIRE 2022-05-10 06:01:00 Doctor Unassigned, [place] [facility] HEALTH - OTHER 2022-05-03 05:01:00 Doctor Brock farias, [place] [facility] AUTHORIZATION TO RELEASE PHI TO [facility] 2022-04-07 05:01:00 Doctor Unassigned, [place] [facility] DME/SUPPLY JUSTIFICATION 2022-03-24 05:01:00 Doc tor Unassigned, [place] [facility] PATIENT QUESTIONNAIRE 2022-03-16 05:01:00 Doctor Unassigned, [place] [facility] Nadja Mayorga Ntrbd Min Dsc Crv [facility] Cardiac Catheterization [facility] Cataract Surgery [facility] Total Hysterectomy [facility] Plan of Care Planned Activity Planned Date Details Comments Source Diagnostic Test Pending 2021-04-13 00:00:00 HbA1c (hemoglobin A1c), blood [code = HbA1c (hemoglobin A1c), blood] [facility] Diagnostic Test Pending 2021-04-13 00:00:00 CMP, serum or plasma [code = CMP, serum or plasma] [facility] Encounters Start Date/Time End Date/Time Encounter Type Admission Type Attending Clinicians Care Facility Care Department Encounter ID Source 2022-07-23 09:09:12 Outpatient [facility] [id number] [facility] 2022-04-05 16:46:26 Outpatient [facility] [id number] [facility] 2022-03-05 08:56:39 Outpatient [facility] [id number] [facility] 2022-02-16 04:20:33 Outpatient [facility] [id number] [facility] 2022-02-04 07:58:20 Outpatient [facility] [id number] [facility] 2022-01-07 11:08:09 Outpatient [facility] [id number] [facility] 2021-08-27 23:47:45 Outpatient NEW ADMISSION ENCCLR ENCCLR [id number] [facility] 2021-07-30 13:23:53 Outpatient 3 [id number] E[facility] RHIANNA [id number] [facility] 2021-07-30 13:23:41 Outpatient 3 [id number] ENC[facility] REF [id number] [facility] [place] 2021-06-12 10:36:50 Outpatient READMISSIO N DIRECTOR MONEY PENDING, DIRECTOR MONEY PENDING ENCCLR ENCCLR [id number] ENCCLR 2021-05-01 17:37:15 Emergency [facility] [id number] [facility] 2021-05-01 17:11:08 Emergency [facility] [id number] [facility] 2021-05-01 12:10:06 Emergency [facility] [id number] [facility] 2018-04-25 00:00:00 2024-10-25 22:17:52 Ochoa Quinn [facility] PROFESSIO NAL BUILDING 1..840.114 350.1.13.10 4.2.7.2.686 [id number] [facility] 2022-03-15 00:00:00 2024-10-25 21:34:33 RefBrian Pickering [facility]?MALIKA REILLY MED[facility] OFF[facility] BUILDING 1..840.114 350.1.13.10 4.2.7.2.686 [id number] [facility] 2024-09-25 16:00:00 2024-09-25 16:00:00 Outpatient JEROME MOSER [facility] [id number] [facility] 2024-09-24 00:00:00 2024-09-25 02:04:42 Orders Only Doctor Unassigned, [place] Doctor Unassigned, [place] [facility] 1..840.114 350.1.13.10 4.2.7.2.686 [id number] [facility] 2024-09-20 15:30:00 2024-09-20 16:22:32 Outpatient JEROME MOSER [facility] [id number] [facility] 2024-09-06 13:30:00 2024-09-06 13:30:00 Outpatient JEROME MOSER [facility] [id number] [facility] 2024-08-21 00:00:00 2024-08-22 02:04:16 Orders Only Doctor Unassigned, [place] Doctor Unassigned, [place] [facility] 1..840.114 350.1.13.10 4.2.7.2.686 [id number] [facility] 2024-08-21 00:00:00 2024-08-22 02:04:05 Orders Only Doctor Unassigned, [place] Doctor Unassigned, [place] [facility] 1.2.840.114 350.1.13.10 4.2.7.2.686 [id number] [facility] 2024-08-20 00:00:00 2024-08-21 21:59:31 Telephone Brian Israel [facility] 1.2840.114 350.1.13.10 4.2.7.2.686 [id number] [facility] 2024-03-12 00:00:00 2024-08-18 07:00:33 Orders Only Tomlin, Lou Tomlin, Lou [facility] 1.2840.114 350.1.13.10 4.2.7.2.686 [id number] [facility] 2024-05-23 00:00:00 2024-08-18 06:35:37 Orders Only Doctor Unassigned, [place] Doctor Unassigned, [place] [facility] 1.2.840.114 350.1.13.10 4.2.7.2.686 [id number] [facility] 2024-06-19 00:00:00 2024-08-18 06:27:43 Orders Only Doctor Unassigned, [place] Doctor Unassigned, [place] [facility] 1.2840.114 350.1.13.10 4.2.7.2.686 [id number] [facility] 2023-06-06 00:00:00 2024-08-18 02:36:44 Orders Only [place]lin, Lou Tomlin, Lou [facility]A [facility] MEDICAL OFFICE BUILDING 1.2.840.114 350.1.13.10 4.2.7.2.686 [id number] [facility] 2024-08-16 00:00:00 2024-08-16 11:52:33 Telephone [facility] JOHN?MALIKA [facility] MEDICAL OFFICE BUILDING 1.2.840.114 350.1.13.10 4.2.7.2.686 [id number] [facility] 2024-08-10 00:00:00 2024-08-14 17:22:39 Refill [facility] JOHN?MALIKA [facility]ILD[facility] 1.2.840.114 350.1.13.10 4.2.7.2.686 [id number] [facility] 2024-08-03 00:00:00 2024-08-03 14:59:11 Telephone [facility] JOHN?MALIKA [facility] BU[facility] 1.2.840.114 350.1.13.10 4.2.7.2.686 [id number] [facility] 2024-08-02 13:45:00 2024-08-02 13:45:00 Outpatient JEROME MOSER [facility] [id number] [facility] 2024-07-29 00:00:00 2024-07-30 12:59:26 Refill [facility] JOHN?MALIKA [facility] MEDICAL OFFICE BUILDING 1.2.840.114 350.1.13.10 4.2.7.2.686 [id number] [facility] 2024-07-25 13:30:00 2024-07-25 13:30:00 Outpatient JAMSHID ROBERTSON [facility] [id number] [facility] 2024-07-17 09:57:36 2024-07-17 23:59:00 Hospital Encounter Jerome Soares [facility] PROFESSIO NAL BUILDING 1.2.840.114 350.1.13.10 4.2.7.2.686 [id number] [facility] 2024-07-17 09:57:30 2024-07-17 23:59:00 Outpatient R FANY [facility] [id number] [facility] 2024-07-17 09:57:30 2024-07-17 23:59:00 Hospital Encounter Fany Jerome [facility] BUILDING 1.2.840.114 350.1.13.10 4.2.7.2.686 [id number] [facility] 2024-07-16 11:20:00 2024-07-16 11:20:00 Outpatient [facility] [id number] [facility] 2024-07-08 00:00:00 2024-07-10 12:40:48 Refill Lindy Brian [facility] 1.2.840.114 350.1.13.10 4.2.7.2.686 [id number] [facility] 2024-06-28 00:00:00 2024-06-28 12:31:24 Refill Lindy Brian [facility] MEDICAL OFFICE BUILDING 1.2.840.114 350.1.13.10 4.2.7.2.686 [id number] [facility] 2024-06-25 00:00:00 2024-06-26 22:16:10 Refill Elsi Christian [facility] JOHN?[facility] MEDICAL OFFICE BUILDING 1.2.840.114 350.1.13.10 4.2.7.2.686 [id number] [facility] 2024-06-25 15:30:00 2024-06-25 15:30:00 Outpatient JAMSHID ROBERTSON [facility] [id number] [facility] 2024-06-21 13:30:00 2024-06-21 13:30:00 Outpatient JEROME MOSER [facility] [id number] [facility] 2024-06-19 16:00:00 2024-06-19 16:00:00 [facility] [id number] 2024-06-19 00:00:00 2024-06-19 14:24:04 Refill Lindy [facility] 1.2.840.114 350.1.13.10 4.2.7.2.686 [id number] [facility] 2024-06-17 00:00:00 2024-06-18 14:39:09 Refill Lindy [facility] MEDICAL OFFICE BUILDING 1.2.840.114 350.1.13.10 4.2.7.2.686 [id number] [facility] 2024-06-12 15:00:00 2024-06-12 15:00:00 Outpatient JEROME MOSER [facility] [id number] [facility] 2024-06-12 00:00:00 2024-06-12 13:03:28 Telephone Jerome Soares [facility] BUILDING 1.2.840.114 350.1.13.10 4.2.7.2.686 [id number] [facility] 2024-06-05 00:00:00 2024-06-05 17:01:35 Telephone Lindy [facility] MEDICAL OFFICE BUILDING 1.2.840.114 350.1.13.10 4.2.7.2.686 [id number] [facility] 2024-06-04 00:00:00 2024-06-05 09:27:59 Telephone Lindy [facility] JOHN?MALIKA [facility] MEDICAL OFFICE BUILDING 1.20.114 350.1.13.10 4.2.7.2.686 [id number] [facility] 2024-05-31 00:00:00 2024-06-01 08:40:11 Refill Tacho Nehal [facility] JOHN?MALIKA [facility] MEDICAL OFFICE BUILDING 1..114 350.1.13.10 4.2.7.2.686 [id number] [facility] 2024-05-29 10:30:00 2024-05-29 10:30:00 Outpatient R JAMSHID EARLY [facility] [id number] [facility] 2024-05-28 13:00:00 2024-05-28 13:00:00 Outpatient R MICHAEL FAKNAKUL CHRISTIAN FAKREBECCAA [facility] [id number] [facility] 2024-05-27 00:00:00 2024-05-28 09:35:29 Refill Lindy [facility] JOHN?[facility] MEDICAL OFFICE BUILDING 1..114 350.1.13.10 4.2.7.2.686 [id number] [facility] 2024-05-25 00:00:00 2024-05-25 13:34:16 Telephone Lind[facility] JOHN?MALIKA [facility] MEDICAL OFFICE BUILDING 1..114 350.1.13.10 4.2.7.2.686 [id number] [facility] 2024-05-23 00:00:00 2024-05-23 15:44:12 Letter (Out) [facility] 1.20.114 350.1.13.10 4.2.7.2.686 [id number] [facility] 2024-05-15 00:00:00 2024-05-15 15:17:55 Telephone [facility] JOHN?MALIKA [facility] MEDICAL OFFICE BUILDING 1.2.840.114 350.1.13.10 4.2.7.2.686 [id number] [facility] 2024-05-14 00:00:00 2024-05-15 08:33:46 Telephone Elsi Christian [facility] 1.2.840.114 350.1.13.10 4.2.7.2.686 [id number] [facility] 2024-05-14 00:00:00 2024-05-14 17:04:16 Telephone Lindy [facility] JOHN?[facility] MEDICAL OFFICE BUILDING 1.2.840.114 350.1.13.10 4.2.7.2.686 [id number] [facility] 2024-04-05 00:00:00 2024-05-12 18:27:53 Patient Secure Msg Doctor Unassigned, [place] Doctor Unassigned, [place] [facility] 1.2.840.114 350.1.13.10 4.2.7.2.686 [id number] [facility] 2024-05-10 00:00:00 2024-05-11 10:08:05 Telephone S[facility] JOHN?[facility] MEDICAL OFFICE BUILDING 1.2.840.114 350.1.13.10 4.2.7.2.686 [id number] [facility] 2024-05-10 15:15:00 2024-05-10 16:16:51 Outpatient JEROME MOSER [facility] [id number] [facility] 2024-05-10 15:15:00 2024-05-10 16:16:51 Office Visit Jerome Soares [facility] 1..114 350.1.13.10 4.2.7.2.686 [id number] [facility] 2024-05-09 00:00:00 2024-05-09 16:18:20 Refill Jamshid Early BUILDING 1..114 350.1.13.10 4.2.7.2.686 [id number] [facility] 2024-05-09 00:00:00 2024-05-09 13:40:38 Refill Brian Israel [facility]?MALIKA REILLY MEDICAL OFFICE BUILDING 1.114 350.1.13.10 4.2.7.2.686 [id number] [facility] 2024-05-08 00:00:00 2024-05-08 00:00:00 Outpatient JAMSHID ROBERTSON [facility] [id number] [facility] 2024-05-04 10:30:00 2024-05-04 10:30:00 Outpatient KAMLESH MORENO [facility] [id number] [facility] 2024-05-03 00:00:00 2024-05-03 16:22:26 Patient Outreach Talia Epstein Laura L [address] 1..114 350.1.13.10 4.2.7.2.686 [id number] [facility] 2024-05-01 00:00:00 2024-05-03 10:54:51 Patient Secure Msg Doctor Unassigned, [place] Doctor Unassigned, [place] [facility] [place] 1..114 350.1.13.10 4.2.7.2.686 [id number] [facility] 2024-05-01 00:00:00 2024-05-02 09:00:54 [facility] 1.2.840.114 350.1.13.10 4.2.7.2.686 [id number] [facility] 2024-04-30 13:00:00 2024-04-30 13:49:34 Outpatient R ELSI CHRISTIAN [facility] [id number] [facility] 2024-04-30 13:00:00 2024-04-30 13:49:34 Office Visit Michael [facility] 1.2.840.114 350.1.13.10 4.2.7.2.686 [id number] [facility] 2024-04-27 00:00:00 2024-04-27 21:53:36 Refill Lindy [facility] 1..840.114 350.1.13.10 4.2.7.2.686 [id number] [facility] 2024-04-27 00:00:00 2024-04-27 15:05:37 Patient Outreach Talia Epstein Laura L [address] 1.840.114 350.1.13.10 4.2.7.2.686 [id number] [facility] 2024-04-27 00:00:00 2024-04-27 09:49:29 [facility] 1.2.840.114 350.1.13.10 4.2.7.2.686 [id number] [facility] 2024-04-26 00:00:00 2024-04-27 06:59:03 Telephone Lindy [facility]?MALIKA [facility] 1..114 350.1.13.10 4.2.7.2.686 [id number] [facility] 2024-04-26 00:00:00 2024-04-26 15:14:38 Patient Outreach Talia Epstein, Talia [facility] 1..114 350.1.13.10 4.2.7.2.686 [id number] [facility] 2024-04-26 00:00:00 2024-04-26 08:24:06 [facility] [place] [facility] 1..114 350.1.13.10 4.2.7.2.686 [id number] 044 [id number] [facility] 2024-04-25 00:00:00 2024-04-25 00:00:00 Outpatient R JAMSHID EARLY [facility] [id number] [facility] 2024-04-19 00:00:00 2024-04-19 16:22:54 Patient Outreach Talia Epstein Laura L [address] 1..114 350.1.13.10 4.2.7.2.686 [id number] [facility] 2024-04-18 00:00:00 2024-04-19 10:49:23 Telephone Jamshid Early [facility] NAL BUILDING 1..114 350.1.13.10 4.2.7.2.686 [id number] 059 [id number] [facility] 2024-04-18 00:00:00 2024-04-18 13:35:40 Patient Outreach Talia Epstein Laura L [address] [address] 1.114 350.1.13.10 4.2.7.2.686 [id number] [facility] 2024-04-18 00:00:00 2024-04-18 13:02:59 Telephone Brian Israel [facility]?MALIKA [facility] MEDICAL OFFICE BUILDING 1.2.840.114 350.1.13.10 4.2.7.2.686 [id number] 044 [id number] [facility] 2024-04-18 00:00:00 2024-04-18 10:27:34 Patient Outreach Talia Epstein Laura L [place] 1.2.840.114 350.1.13.10 4.2.7.2.686 [id number] [facility] 2024-04-17 10:04:30 2024-04-17 23:59:00 Hospital Encounter Emili Gee [facility]?MALIKA [facility] MEDICAL OFFICE BUILDING 1.2.840.114 350.1.13.10 4.2.7.2.686 [id number] [id number] [facility] 2024-04-17 09:45:00 2024-04-17 10:45:29 Outpatient R PHILIPPE LARSEN CRAIG [facility] [id number] [facility] 2024-04-17 09:45:00 2024-04-17 10:45:29 Office Visit Emili Gee Philippe Larsen [facility]?MALIKA [facility] OFF[facility] BUILDING 1.2.840.114 350.1.13.10 4.2.7.2.686 [id number] [facility] 2024-04-10 13:00:00 2024-04-10 13:00:00 Outpatient R JAYDEN MITCHELL [facility] [id number] [facility] 2024-04-03 14:20:00 2024-04-03 15:03:33 Outpatient R CHRISTIAN, GINA MICHAEL, ELSI [facility] [id number] [facility] 2024-04-03 14:20:00 2024-04-03 15:03:33 [facility]ALIKA [facility] MEDICAL OFFICE BUILDING 1..840.114 350.1.13.10 4.2.7.2.686 [id number] 044 [id number] [facility] 2024-03-27 00:00:00 2024-03-27 10:58:34 [facility] MEDICAL OFFICE BUILDING 1..840.114 350.1.13.10 4.2.7.2.686 [id number] 044 [id number] [facility] 2024-03-27 10:40:00 2024-03-27 10:40:00 Outpatient R CHRISTIAN, GINA MICHAEL, ELSI [facility] [id number] [facility] 2024-03-20 11:00:00 2024-03-20 11:00:00 Outpatient R CHRISTIAN, GINA CHRISTIAN, ELSI [facility] [id number] [facility] 2024-03-20 00:00:00 2024-03-20 09:26:27 [facility] MEDICAL OFFICE BUILDING 1.2.840.114 350.1.13.10 4.2.7.2.686 [id number] 044 [id number] [facility] 2024-03-17 00:00:00 2024-03-19 08:26:09 Telephone Lindy [facility] JOHN?[facility] MEDICAL OFFICE BUILDING 1.2.840.114 350.1.13.10 4.2.7.2.686 [id number] 044 [id number] [facility] 2024-03-14 00:00:00 2024-03-14 14:36:05 Telephone Lindy [facility] JOHN?MALIKA [facility] MEDICAL OFFICE BUILDING 1.2.840.114 350.1.13.10 4.2.7.2.686 [id number] [facility] 2024-03-13 13:40:00 2024-03-13 13:40:00 Outpatient R ÁNGEL ISRAELINE [facility] [id number] [facility] 2024-03-09 00:00:00 2024-03-12 08:20:15 [facility] MEDICAL OFFICE BUILDING 1.2.840.114 350.1.13.10 4.2.7.2.686 [id number] 044 [id number] [facility] 2024-03-01 00:00:00 2024-03-01 15:06:40 [facility] BUILD[facility] 1.2.840.114 350.1.13.10 4.2.7.2.686 [id number] [facility] 2024-02-28 00:00:00 2024-02-28 00:00:00 Outpatient R JAMSHID EARLY [facility] [id number] [facility] 2024-02-27 00:00:00 2024-02-27 00:00:00 Outpatient JAMSHID ROBERTSON [facility] [id number] [facility] 2024-02-22 00:00:00 2024-02-24 17:59:29 Refill Lindy [facility]?MALIKA [facility] MEDICAL OFFICE BUILDING 1.2.840.114 350.1.13.10 4.2.7.2.686 [id number] 044 [id number] [facility] 2024-02-10 00:00:00 2024-02-16 10:20:25 Telephone Jerome Soares [facility] 1.2.840.114 350.1.13.10 4.2.7.2.686 [id number] [facility] 2024-02-09 00:00:00 2024-02-10 13:05:50 Shahzad Hernández [facility]ALIKA [facility] MEDICAL OFFICE BUILDING 1.2840.114 350.1.13.10 4.2.7.2.686 [id number] 044 [id number] [facility] 2024-02-09 00:00:00 2024-02-09 13:13:59 Telephone Jamshid Early [facility] BUILDING 1.2840.114 350.1.13.10 4.2.7.2.686 [id number] 059 [id number] [facility] 2024-02-01 00:00:00 2024-02-03 04:51:46 Telephone Seraallison [facility] MEDICAL OFFICE BUILDING 1.2840.114 350.1.13.10 4.2.7.2.686 [id number] 044 [id number] [facility] 2024-01-31 13:00:00 2024-01-31 16:22:54 Outpatient R JAMSHID EARLY [facility] [id number] [facility] 2024-01-31 13:00:00 2024-01-31 16:22:54 Office Visit Jamshid Early [facility] BUILDING 1.2840.114 350.1.13.10 4.2.7.2.686 [id number] 059 [id number] [facility] 2024-01-31 10:40:00 2024-01-31 11:44:53 Office Visit [facility] MEDICAL OFFICE BUILDING 1.2840.114 350.1.13.10 4.2.7.2.686 [id number] 044 [id number] [facility] 2024-01-29 00:00:00 2024-01-31 09:33:11 [facility] 1..840.114 350.1.13.10 4.2.7.2.686 [id number] 044 [id number] [facility] 2024-01-30 10:30:00 2024-01-30 10:30:00 Outpatient R JAMSHID EARLY [facility] [id number] [facility] 2024-01-17 00:00:00 2024-01-17 15:48:10 Telephone Abigail Ley 1..840.114 350.1.13.10 4.2.7.2.686 [id number] [facility] 2024-01-16 16:01:00 2024-01-16 20:29:00 Emergency X JUS SHAHZAD [facility] E[facility] [id number] [facility] 2024-01-16 16:01:00 2024-01-16 20:29:00 Emergency JusVivienne kuoine [facility] 1..840.114 350.1.13.10 4.2.7.2.686 [id number] 084 [id number] [facility] 2023-12-27 10:20:00 2023-12-27 11:44:04 Outpatient R SERAAllisonBRIAN [facility] [id number] [facility] 2023-12-27 10:20:00 2023-12-27 11:44:04 [facility] 1..840.114 350.1.13.10 4.2.7.2.686 [id number] 044 [id number] [facility] 2023-12-26 10:00:00 2023-12-26 10:00:00 Outpatient R [facility] [id number] [facility] 2023-12-22 00:00:00 2023-12-22 14:11:57 Telephone Lindy [facility] JOHN?MALIKA [facility] MEDICAL OFFICE BUILDING 1.2.840.114 350.1.13.10 4.2.7.2.686 [id number] 044 [id number] [facility] 2023-12-21 00:00:00 2023-12-22 11:37:26 Refill Lindy [facility] JOHN?[facility] MEDICAL OFFICE BUILDING 1.2.840.114 350.1.13.10 4.2.7.2.686 [id number] 044 [id number] [facility] 2023-12-16 10:30:00 2023-12-16 10:30:00 Outpatient R JAMSHID EARLY [facility] [id number] [facility] 2023-12-07 00:00:00 2023-12-09 12:41:51 Refill Lindy [facility] JOHN?[facility] MEDICAL OFFICE BUILDING 1.2.840.114 350.1.13.10 4.2.7.2.686 [id number] 044 [id number] [facility] 2023-12-09 00:00:00 2023-12-09 10:35:59 [facility] 1.2.840.114 350.1.13.10 4.2.7.2.686 [id number] 059 [id number] [facility] 2023-12-05 00:00:00 2023-12-06 15:17:25 Telephone Lindy [facility] JOHN?[facility] MEDICAL OFFICE BUILDING 1.2.840.114 350.1.13.10 4.2.7.2.686 [id number] 044 [id number] [facility] 2023-11-22 11:00:00 2023-11-22 11:00:00 Outpatient R JAYDEN MITCHELL [facility] [id number] [facility] 2023-11-21 00:00:00 2023-11-21 15:31:31 [facility] 1.2840.114 350.1.13.10 4.2.7.2.686 [id number] 044 [id number] [facility] 2023-09-05 00:00:00 2023-11-21 06:45:38 Refill Lindy [facility] MEDICAL OFFICE BUILDING 1.2840.114 350.1.13.10 4.2.7.2.686 [id number] 044 [id number] [facility] 2023-10-17 00:00:00 2023-11-19 18:08:34 Patient Secure Msg Doctor Unassigned, [place] [facility] NAL BUILDING 1.84.114 350.1.13.10 4.2.7.2.686 [id number] [facility] 2023-11-14 12:00:00 2023-11-14 12:15:00 Banana Ripening Room Supervisor Visit Lab, Cameron Early Lindy [facility] MEDICAL OFFICE BUILDING 1.840.114 350.1.13.10 4.2.7.2.686 [id number] [facility] 2023-11-14 12:00:00 2023-11-14 12:00:00 [facility] [id number] [facility] 2023-11-11 12:15:00 2023-11-11 12:15:00 Banana Ripening Room Supervisor Visit Lab, Cameron Early [facility] MEDICAL OFFICE BUILDING 1.840.114 350.1.13.10 4.2.7.2.686 [id number] [facility] 2023-11-11 12:15:00 2023-11-11 12:09:45 Outpatient [facility] [id number] [facility] 2023-11-11 10:40:00 2023-11-11 12:05:37 Office Visit Lindy [facility] MEDICAL OFFICE BUILDING 1.2.840.114 350.1.13.10 4.2.7.2.686 [id number] 044 [id number] [facility] 2023-11-07 00:00:00 2023-11-08 10:12:20 Telephone Lindy [facility] MEDICAL OFFICE BUILDING 1.2840.114 350.1.13.10 4.2.7.2.686 [id number] 044 [id number] [facility] 2023-11-03 00:00:00 2023-11-03 00:00:00 Telephone Bridgette Black 1.2840.114 350.1.13.10 4.2.7.2.686 [id number] [facility] 2023-11-01 00:00:00 2023-11-01 00:00:00 Refill Lindy [facility] MEDICAL OFFICE BUILDING 1.2840.114 350.1.13.10 4.2.7.2.686 [id number] 044 [id number] [facility] 2023-10-30 14:38:00 2023-10-30 17:42:00 Emergency X DANIELLA HAWK [facility] ERT [id number] [facility] 2023-10-30 14:38:00 2023-10-30 17:42:00 Emergency Daniella Hawk [facility] 1.2840.114 350.1.13.10 4.2.7.2.686 [id number] 084 [id number] [facility] 2023-10-28 00:00:00 2023-10-28 00:00:00 Telephone Wale Haynes [facility] JOHN?MALIKA REILLY MEDICAL OFFICE BUILDING 1.2.840.114 350.1.13.10 4.2.7.2.686 [id number] 220 [id number] [facility] 2023-10-26 00:00:00 2023-10-26 00:00:00 Refill Wale Haynes [facility] JOHN?MALIKA [facility] MEDICAL OFFICE BUILDING 1.2.840.114 350.1.13.10 4.2.7.2.686 [id number] [facility] 2023-10-26 00:00:00 2023-10-26 00:00:00 Refill Lindy [facility] JOHN?MALIKA [facility] MEDICAL OFFICE BUILDING 1.2.840.114 350.1.13.10 4.2.7.2.686 [id number] 044 [id number] [facility] 2023-10-14 00:00:00 2023-10-14 00:00:00 [facility]MALIKA PAINT[facility] MEDICAL OFFICE BUILDING 1.2.840.114 350.1.13.10 4.2.7.2.686 [id number] 044 [id number] [facility] 2023-10-11 00:00:00 2023-10-11 00:00:00 Telephone Nehal Titus [facility] JOHN?[facility] MEDICAL OFFICE BUILDING 1.2.840.114 350.1.13.10 4.2.7.2.686 [id number] 044 [id number] [facility] 2023-10-04 13:49:09 2023-10-04 23:59:00 Outpatient STEPH JONES [facility] [id number] [facility] 2023-10-04 13:49:09 2023-10-04 23:59:00 Hospital Encounter Steph Nur [facility] 1.2.840.114 350.1.13.10 4.2.7.2.686 [id number] [facility] 2023-09-28 00:00:00 2023-09-28 00:00:00 [facility]ill [facility] MED[facility] OFF[facility] BUILDING 1.2.840.114 350.1.13.10 4.2.7.2.686 [id number] 044 [id number] [facility] 2023-09-22 00:00:00 2023-09-22 00:00[facility] 1.2.840.114 350.1.13.10 4.2.7.2.686 [id number] 044 [id number] [facility] 2023-09-21 10:00:00 2023-09-21 11:07:24 Outpatient R JAMSHID EARLY [facility] [id number] [facility] 2023-09-21 10:00:00 2023-09-21 11:07:24 Office Visit Jamshid Early [facility] BUILDING 1.2.840.114 350.1.13.10 4.2.7.2.686 [id number] 059 [id number] [facility] 2023-09-21 10:30:00 2023-09-21 10:45:00 Banana Ripening Room Supervisor Visit 2, Adc Lab Jamshid Early [facility] BUILDING 1.2.840.114 350.1.13.10 4.2.7.2.686 [id number] [facility] 2023-09-07 00:00:00 2023-09-07 00:00:00 Telephone [facility] MEDICAL OFFICE BUILDING 1.2.840.114 350.1.13.10 4.2.7.2.686 [id number] 044 [id number] [facility] 2023-09-06 00:00:00 2023-09-06 00:00:00 Orders Only Doctor Unassigned, [place] [facility] 1.2840.114 350.1.13.10 4.2.7.2.686 [id number] [id number] [facility] 2023-09-02 00:00:00 2023-09-02 00:00:00 Telephone Lindy [facility] 1.840.114 350.1.13.10 4.2.7.2.686 [id number] 044 [id number] [facility] 2023-08-24 11:00:00 2023-08-24 11:00:00 DAVID Pate HAIDER [facility] [id number] [facility] 2023-08-24 00:00:00 2023-08-24 00:00:00 Nurse Triage Simba Bailey [facility] 1.0.114 350.1.13.10 4.2.7.2.686 [id number] [facility] 2023-08-23 00:00:00 2023-08-23 00:00:00 Telephone Jamshid Early [facility] 1.840.114 350.1.13.10 4.2.7.2.686 [id number] 059 [id number] [facility] 2023-08-22 00:00:00 2023-08-22 00:00:00 Refill Lindy [facility] BUILDING 1.2840.114 350.1.13.10 4.2.7.2.686 [id number] 044 [id number] [facility] 2023-08-12 11:00:00 2023-08-12 11:24:47 Outpatient R [facility] [id number] [facility] 2023-08-12 11:00:00 2023-08-12 11:24:47 Office Visit [place] [facility] 1.2840.114 350.1.13.10 4.2.7.2.686 [id number] 085 [id number] [facility] 2023-08-09 00:00:00 2023-08-09 00:00:00 Refill Lindy [facility] MEDICAL OFFICE BUILDING 1.284.114 350.1.13.10 4.2.7.2.686 [id number] 044 [id number] [facility] 2023-08-08 00:00:00 2023-08-08 00:00:00 Orders Only Doctor Unassigned, [place] [facility] 1.2840.114 350.1.13.10 4.2.7.2.686 [id number] 009 [id number] [facility] 2023-07-25 00:00:00 2023-07-25 00:00:00 Orders Only Doctor Unassigned, [place] [facility] 1.2840.114 350.1.13.10 4.2.7.2.686 [id number] 009 [id number] [facility] 2023-07-20 00:00:00 2023-07-20 00:00:00 [facility]ill [facility] MEDICAL OFFICE BUILDING 1.284.114 350.1.13.10 4.2.7.2.686 [id number] 044 [id number] [facility] 2023-07-17 00:00:00 2023-07-17 00:00:00 [facility]ill [facility] MEDICAL OFFICE BUILDING 1.2.840.114 350.1.13.10 4.2.7.2.686 [id number] 044 [id number] [facility] 2023-07-14 00:00:00 2023-07-14 00:00:00 Telephone Jamshid EarlyHKeri [facility] NAL BUILDING 1.2840.114 350.1.13.10 4.2.7.2.686 [id number] 059 [id number] [facility] 2023-07-13 08:30:00 2023-07-13 23:59:00 Hospital Encounter Jamshid EarlyHKeri [facility] NAL BUILDING 1.2840.114 350.1.13.10 4.2.7.2.686 [id number] [facility] 2023-07-13 09:20:00 2023-07-13 11:09:34 Outpatient R DAVID [facility] [id number] [facility] 2023-07-13 09:20:00 2023-07-13 11:09:34 Office Visit David Lima [facility] BUILDING 1.2840.114 350.1.13.10 4.2.7.2.686 [id number] 059 [id number] [facility] 2023-07-13 00:00:00 2023-07-13 00:00:00 Telephone Jamshid EarlyHKeri [facility] BUILDING 1.2840.114 350.1.13.10 4.2.7.2.686 [id number] 059 [id number] [facility] 2023-07-13 00:00:00 2023-07-13 00:00:00 Telephone [facility]A M[facility] MEDICAL OFFICE BUILDING 1.2.840.114 350.1.13.10 4.2.7.2.686 [id number] [facility] 2023-07-11 00:00:00 2023-07-11 00:00:00 Refill Lindy [facility] MEDICAL OFFICE BUILDING 1.840.114 350.1.13.10 4.2.7.2.686 [id number] 044 [id number] [facility] 2023-07-09 00:00:00 2023-07-09 00:00:00 Refill Erick Larios [facility] MEDICAL OFFICE BUILDING 1.840.114 350.1.13.10 4.2.7.2.686 [id number] 220 [id number] [facility] 2023-07-08 14:00:00 2023-07-08 15:10:42 Outpatient R SERAAllisonBRIAN [facility] [id number] [facility] 2023-07-08 14:00:00 2023-07-08 15:10:42 Office Visit Lindy [facility] MEDICAL OFFICE BUILDING 1.840.114 350.1.13.10 4.2.7.2.686 [id number] 044 [id number] [facility] 2023-06-29 10:00:00 2023-06-29 10:00:00 Outpatient DAVID TOMPKINS HAIDER [facility] [id number] [facility] 2023-06-29 00:00:00 2023-06-29 00:00:00 Orders Only Doctor Unassigned, [place] [facility] .84.114 350.1.13.10 4.2.7.2.686 [id number] 009 [id number] [facility] 2023-06-24 00:00:00 2023-06-24 00:00:00 Telephone Jamshid Early [facility] NAL BUILDING 1.840.114 350.1.13.10 4.2.7.2.686 [id number] 059 [id number] [facility] 2023-06-22 11:00:00 2023-06-22 11:51:38 Banana Ripening Room Supervisor Visit 2, Adc Lab Jamshid Early [facility] BUILDING 1.2840.114 350.1.13.10 4.2.7.2.686 [id number] [facility] 2023-06-22 10:00:00 2023-06-22 10:46:49 Outpatient R JAMSHID EARLY [facility] [id number] [facility] 2023-06-22 10:00:00 2023-06-22 10:46:49 Office Visit Jamshid Early [facility] BUILDING 1.20.114 350.1.13.10 4.2.7.2.686 [id number] 059 [id number] [facility] 2023-06-22 00:00:00 2023-06-22 00:00:00 Refill Lindy [facility] JOHN?MALIKA [facility] MEDICAL OFFICE BUILDING 1.2840.114 350.1.13.10 4.2.7.2.686 [id number] 044 [id number] [facility] 2023-06-21 00:00:00 2023-06-21 00:00:00 Telephone Lindy [facility] JOHN?MALIKA [facility] MEDICAL OFFICE BUILDING 1.2840.114 350.1.13.10 4.2.7.2.686 [id number] 044 [id number] [facility] 2023-06-21 00:00:00 2023-06-21 00:00:00 Telephone Lindy [facility] JOHN[facility] MEDICAL OFFICE BUILDING 1.2840.114 350.1.13.10 4.2.7.2.686 [id number] [facility] 2023-06-21 00:00:00 2023-06-21 00:00:00 Orders Only Doctor Unassigned, [place] [facility] 1.2.840.114 350.1.13.10 4.2.7.2.686 [id number] [facility] 2023-06-17 00:00:00 2023-06-17 00:00:00 Telephone Brian Israel [facility] MED[facility] OFF[facility] BUILDING 1.2.840.114 350.1.13.10 4.2.7.2.686 [id number] [facility] 2023-06-15 11:30:00 2023-06-15 11:30:00 Outpatient NEHAL JUAN [facility] [id number] [facility] 2023-06-13 10:20:00 2023-06-13 10:20:00 Outpatient [facility]AN [facility] [id number] [facility] 2023-06-13 00:00:00 2023-06-13 00:00:00 Telephone José Miguel Bedolla [facility] BUILDING 1.2.840.114 350.1.13.10 4.2.7.2.686 [id number] [facility] 2023-06-09 09:30:00 2023-06-09 10:00:00 Office Visit [place] Wilkes [facility] BUILDING 1.2.840.114 350.1.13.10 4.2.7.2.686 [id number] [facility] 2023-06-09 09:30:00 2023-06-09 09:30:00 Outpatient R MICHOACANO WILKES SHIWAN [facility] [id number] [facility] 2023-06-07 00:00:00 2023-06-07 00:00:00 Patient Secure Msg Doctor Unassigned, [place] [facility] JOHN?[facility] MED[facility] BU[facility] 1.284.114 350.1.13.10 4.2.7.2.686 [id number] [facility] 2023-06-07 00:00:00 2023-06-07 00:00:00 Telephone Lindy Brian [facility] JOHN?[facility] BU[facility] 1.84.114 350.1.13.10 4.2.7.2.686 [id number] [facility] 2023-06-06 12:06:20 2023-06-06 23:59:00 Outpatient R STERLINGSeth NEHAL [facility] [id number] [facility] 2023-06-06 12:06:20 2023-06-06 23:59:00 Hospital Encounter Sterlingseth Nehal [facility] JOHN?[facility] BUILD[facility] 1.84.114 350.1.13.10 4.2.7.2.686 [id number] [facility] 2023-06-06 11:30:00 2023-06-06 12:00:00 [facility] 1.84.114 350.1.13.10 4.2.7.2.686 [id number] [facility] 2023-06-06 00:00:00 2023-06-06 00:00:00 Telephone Jina Rock [facility] 1.84.114 350.1.13.10 4.2.7.2.686 [id number] [facility] 2023-06-03 00:00:00 2023-06-03 00:00:00 Telephone Lindy Brian [facility] JOHN?[facility] MEDICAL OFFICE BUILDING 1.840.114 350.1.13.10 4.2.7.2.686 [id number] [id number] [facility] 2023-06-03 00:00:00 2023-06-03 00:00:00 Telephone Lindy [facility] JOHN?[facility] MEDICAL OFFICE BUILDING 1.2840.114 350.1.13.10 4.2.7.2.686 [id number] 044 [id number] [facility] 2023-06-02 00:00:00 2023-06-02 00:00:00 Telephone [facility] MEDICAL OFFICE BUILDING 1.20.114 350.1.13.10 4.2.7.2.686 [id number] 044 [id number] [facility] 2023-06-01 00:00:00 2023-06-01 00:00:00 Telephone [facility] JOHN[facility] MEDICAL OFFICE BUILDING 1.2840.114 350.1.13.10 4.2.7.2.686 [id number] 044 [id number] [facility] 2023-05-31 00:00:00 2023-05-31 00:00:00 Telephone Jerome Soares [facility] 1.840.114 350.1.13.10 4.2.7.2.686 [id number] [facility] 2023-05-31 00:00:00 2023-05-31 00:00:00 Telephone [facility] JOHN[facility] MEDICAL OFFICE BUILDING 1.2840.114 350.1.13.10 4.2.7.2.686 [id number] 044 [id number] [facility] 2023-05-30 00:00:00 2023-05-30 00:00:00 Telephone [facility] JOHN?[facility] MEDICAL OFFICE BUILDING 1.2840.114 350.1.13.10 4.2.7.2.686 [id number] 044 [id number] [facility] 2023-05-24 00:00:00 2023-05-24 00:00:00 Telephone [facility]?MALIKA [facility] MEDICAL OFFICE BUILDING 1.84114 350.1.13.10 4.2.7.2.686 [id number] 044 [id number] [facility] 2023-05-23 10:00:00 2023-05-23 11:15:31 Outpatient R ERICK LARIOS [facility] [id number] [facility] 2023-05-23 10:00:00 2023-05-23 11:15:[address] [facility] 1.84.114 350.1.13.10 4.2.7.2.686 [id number] [facility] 2023-05-23 10:30:00 2023-05-23 10:30:00 Outpatient R ERICK LARIOS YU [facility] [id number] [facility] 2023-05-20 00:00:00 2023-05-20 00:00:00 Orders Only Doctor Unassigned, [place] [facility] 1.84114 350.1.13.10 4.2.7.2.686 [id number] [id number] [facility] 2023-05-19 13:00:00 2023-05-19 13:00:00 Outpatient R JAMSHID EARLY [facility] [id number] [facility] 2023-05-18 00:00:00 2023-05-18 00:00:00 Telephone [facility] MEDICAL OFFICE BUILDING 1.84.114 350.1.13.10 4.2.7.2.686 [id number] 044 [id number] [facility] 2023-05-17 00:00:00 2023-05-17 00:00:00 Refill [facility] MEDICAL OFFICE BUILDING 1.2.840.114 350.1.13.10 4.2.7.2.686 [id number] 044 [id number] [facility] 2023-05-16 15:45:00 2023-05-16 15:45:00 Outpatient JOSÉ MIGUEL BLANCHARD MITCHELL [facility] [id number] [facility] 2023-05-16 00:00:00 2023-05-16 00:00:00 [facility] MEDICAL OFFICE BUILDING 1.2.840.114 350.1.13.10 4.2.7.2.686 [id number] 044 [id number] [facility] 2023-05-16 00:00:00 2023-05-16 00:00:00 [facility] MEDICAL OFFICE BUILDING 1..840.114 350.1.13.10 4.2.7.2.686 [id number] 044 [id number] [facility] 2023-05-12 00:00:00 2023-05-12 00:00:00 Telephone Jerome Soares [facility] 1..840.114 350.1.13.10 4.2.7.2.686 [id number] [facility] 2023-05-09 10:40:00 2023-05-09 10:40:00 Outpatient [facility] [id number] [facility] 2023-05-05 14:45:00 2023-05-05 16:12:55 Outpatient R JEROME SOARES [facility] [id number] [facility] 2023-05-05 14:45:00 2023-05-05 16:12:55 Office Visit Jerome Soares [facility] 1..114 350.1.13.10 4.2.7.2.686 [id number] [facility] 2023-05-05 10:20:00 2023-05-05 11:20:20 Office [facility] 1.0.114 350.1.13.10 4.2.7.2.686 [id number] 044 [id number] [facility] 2023-05-05 00:00:00 2023-05-05 00:00:00 Orders Only Doctor Unassigned, [place] [facility] 1.2840.114 350.1.13.10 4.2.7.2.686 [id number] [id number] [facility] 2023-04-27 11:00:00 2023-04-27 11:57:05 Outpatient R DAVID [facility] [id number] [facility] 2023-04-27 11:00:00 2023-04-27 11:57:05 [facility] 1.0.114 350.1.13.10 4.2.7.2.686 [id number] 059 [id number] [facility] 2023-04-21 16:20:00 2023-04-21 16:20:00 Out[facility] [id number] [facility] 2023-04-20 00:00:00 2023-04-20 00:00:00 Transition of Care Alda Morrison 1..114 350.1.13.10 4.2.7.2.686 [id number] [facility] 2023-04-12 15:17:00 2023-04-19 18:13:00 Inpatient X GERMÁN ALVARENGA [facility] [id number] [facility] 2023-04-12 15:17:00 2023-04-19 18:13:00 Hospital Encounter Tootie Chau Germán [facility] 1.2.840.114 350.1.13.10 4.2.7.2.686 [id number] 081 [id number] [facility] 2023-04-15 00:00:00 2023-04-15 00:00:00 Refill [facility] MEDICAL OFFICE BUILDING 1.2840.114 350.1.13.10 4.2.7.2.686 [id number] 044 [id number] [facility] 2023-04-12 00:00:00 2023-04-12 00:00:00 Telephone [facility] MEDICAL OFFICE BUILDING 1.2.840.114 350.1.13.10 4.2.7.2.686 [id number] 044 [id number] [facility] 2023-04-06 00:00:00 2023-04-06 00:00:00 [facility] MEDICAL OFFICE BUILDING 1.2.840.114 350.1.13.10 4.2.7.2.686 [id number] 044 [id number] [facility] 2023-04-04 00:00:00 2023-04-04 00:00:00 Orders Only Doctor Unassigned, [place] [facility] 1.2.840.114 350.1.13.10 4.2.7.2.686 [id number] [id number] [facility] 2023-03-29 00:00:00 2023-03-29 00:00:00 Transition of Care Rodo Gomez 1.2.840.114 350.1.13.10 4.2.7.2.686 [id number] [facility] 2023-03-29 00:00:00 2023-03-29 00:00:00 Telephone Julissa Michoacano [facility] KYA PROFESSIO NAL BUILDING 1.2.840.114 350.1.13.10 4.2.7.2.686 [id number] 085 [id number] [facility] 2023-03-29 00:00:00 2023-03-29 00:00:00 Telephone Lindy Brian [facility] JOHN?MALIKA REILLY MEDICAL OFFICE BUILDING 1.2.840.114 350.1.13.10 4.2.7.2.686 [id number] 044 [id number] [facility] 2023-03-21 08:51:00 2023-03-28 13:25:00 Inpatient R M[facility]GAN [facility] [id number] [facility] 2023-03-21 08:51:00 2023-03-28 13:25:00 Hospital Encounter [facility] 1.2.840.114 350.1.13.10 4.2.7.2.686 [id number] [id number] [facility] 2023-03-25 12:28:00 2023-03-25 14:55:00 Anesthesia Event Mary Poon Brita M [facility] 1.2.840.114 350.1.13.10 4.2.7.2.686 [id number] [facility] 2023-03-25 11:09:00 2023-03-25 13:23:00 Surgery [facility] 1.2.840.114 350.1.13.10 4.2.7.2.686 [id number] [facility] 2023-03-21 10:30:00 2023-03-21 12:59:00 Surgery [facility] 1.2.840.114 350.1.13.10 4.2.7.2.686 [id number] [facility] 2023-03-21 10:40:00 2023-03-21 10:40:00 Outpatient [facility] [id number] [facility] 2023-03-15 00:00:00 2023-03-15 00:00:00 Orders Only Doctor Unassigned, [place] [facility] 1.2840.114 350.1.13.10 4.2.7.2.686 [id number] [id number] [facility] 2023-03-14 00:00:00 2023-03-14 00:00:00 Patient Secure Msg Doctor Unassigned, [place] [facility] 1.0.114 350.1.13.10 4.2.7.2.686 [id number] [facility] 2023-03-10 16:30:00 2023-03-10 17:07:51 Outpatient R JEROME SOARES [facility] [id number] [facility] 2023-03-10 16:30:00 2023-03-10 17:07:51 Office Visit Jerome Soares [facility] 1.0.114 350.1.13.10 4.2.7.2.686 [id number] [facility] 2023-03-10 00:00:00 2023-03-10 00:00:00 Telephone Lindy Brian [facility] REILLY MEDICAL OFFICE BUILDING 1..114 350.1.13.10 4.2.7.2.686 [id number] 044 [id number] [facility] 2023-03-08 16:20:00 2023-03-08 17:12:57 Outpatient R [facility] [id number] [facility] 2023-03-08 16:20:00 2023-03-08 17:12:57 Office Visit Lindy [facility] MEDICAL OFFICE BUILDING 1.284.114 350.1.13.10 4.2.7.2.686 [id number] 044 [id number] [facility] 2023-03-08 00:00:00 2023-03-08 00:00:00 Orders Only Doctor Unassigned, [place] [facility] 1.0.114 350.1.13.10 4.2.7.2.686 [id number] [id number] [facility] 2023-02-28 00:00:00 2023-02-28 00:00:00 Refill Lindy [facility] MEDICAL OFFICE BUILDING 1.84.114 350.1.13.10 4.2.7.2.686 [id number] 044 [id number] [facility] 2023-02-22 00:00:00 2023-02-22 00:00:00 Outpatient ROEL CADENA [facility] [id number] [facility] 2023-02-22 00:00:00 2023-02-22 00:00:00 Transition of Care Alda Morrison 1.84.114 350.1.13.10 4.2.7.2.686 [id number] [facility] 2023-02-22 00:00:00 2023-02-22 00:00:00 Patient Secure Msg Doctor Unassigned, [place] [facility] 1..114 350.1.13.10 4.2.7.2.686 [id number] 019 [id number] [facility] 2023-02-20 20:53:00 2023-02-21 19:00:00 Outpatient SAM TANNER [facility] [id number] [facility] 2023-02-20 20:53:00 2023-02-21 19:00:00 Emergency Ramírez Culp Mohammad A. [facility] 1.2.840.114 350.1.13.10 4.2.7.2.686 [id number] [id number] [facility] 2023-02-15 00:00:00 2023-02-15 00:00:00 Refill [facility] MEDICAL OFFICE BUILDING 1.2.840.114 350.1.13.10 4.2.7.2.686 [id number] 044 [id number] [facility] 2023-02-11 00:00:00 2023-02-11 00:00:00 Telephone [facility] MEDICAL OFFICE BUILDING 1.2.840.114 350.1.13.10 4.2.7.2.686 [id number] 044 [id number] [facility] 2023-02-10 00:00:00 2023-02-10 00:00:00 Telephone Roel Hoang [facility] 1.2.840.114 350.1.13.10 4.2.7.2.686 [id number] 205 [id number] [facility] 2023-02-09 00:00:00 2023-02-09 00:00:00 Telephone Roel Hoang [facility] 1.2.840.114 350.1.13.10 4.2.7.2.686 [id number] [facility] 2023-02-08 11:00:00 2023-02-08 13:22:21 Outpatient R ROEL HOANG [facility] [id number] [facility] 2023-02-08 11:00:00 2023-02-08 13:22:21 [facility] 1.2.840.114 350.1.13.10 4.2.7.2.686 [id number] [facility] 2023-02-08 00:00:00 2023-02-08 00:00:00 Orders Only Doctor Unassigned, [place] [facility] 1.2840.114 350.1.13.10 4.2.7.2.686 [id number] [id number] [facility] 2023-02-02 00:00:00 2023-02-02 00:00:00 Refill [facility] MEDICAL OFFICE BUILDING 1.0.114 350.1.13.10 4.2.7.2.686 [id number] 044 [id number] [facility] 2023-01-28 00:00:00 2023-01-28 00:00:00 Refill [facility] MEDICAL OFFICE BUILDING 1.840.114 350.1.13.10 4.2.7.2.686 [id number] 044 [id number] [facility] 2023-01-28 00:00:00 2023-01-28 00:00:00 Orders Only Doctor Unassigned, [place] [facility] 1.840.114 350.1.13.10 4.2.7.2.686 [id number] [id number] [facility] 2023-01-21 00:00:00 2023-01-21 00:00:00 Telephone [facility] MEDICAL OFFICE BUILDING 1.840.114 350.1.13.10 4.2.7.2.686 [id number] 044 [id number] [facility] 2023-01-20 00:00:00 2023-01-20 00:00:00 Patient Secure Msg Doctor Unassigned, [place] [facility] 1.2840.114 350.1.13.10 4.2.7.2.686 [id number] 019 [id number] [facility] 2023-01-19 00:00:00 2023-01-19 00:00:00 Orders Only Doctor Unassigned, [place] [facility] 1.2840.114 350.1.13.10 4.2.7.2.686 [id number] [id number] [facility] 2023-01-18 09:40:00 2023-01-18 09:40:00 [facility] [id number] 2023-01-10 10:40:00 2023-01-10 10:40:00 Outpatient [facility] [id number] [facility] 2023-01-09 00:00:00 2023-01-09 00:00:00 Orders Only Doctor Unassigned, [place] [facility] 1.2840.114 350.1.13.10 4.2.7.2.686 [id number] [id number] [facility] 2023-01-06 00:00:00 2023-01-06 00:00:00 Telephone [facility] MEDICAL OFFICE BUILDING 1.2.840.114 350.1.13.10 4.2.7.2.686 [id number] 044 [id number] [facility] 2023-01-05 00:00:00 2023-01-05 00:00[facility] MEDICAL OFFICE BUILDING 1.2.840.114 350.1.13.10 4.2.7.2.686 [id number] 044 [id number] [facility] 2022-12-24 10:40:00 2022-12-24 11:39:26 Outpatient XENIA BURKS [facility] [id number] [facility] 2022-12-24 10:40:00 2022-12-24 11:39:26 Office Visit Xenia Lomeli BUILDING 1.84.114 350.1.13.10 4.2.7.2.686 [id number] [facility] 2022-12-24 00:00:00 2022-12-24 00:00:00 Telephone [facility] OFFICE BUILDING 1..114 350.1.13.10 4.2.7.2.686 [id number] 044 [id number] [facility] 2022-12-22 00:00:00 2022-12-22 00:00:00 Refill Lindy [facility] OFFICE BUILDING 1..114 350.1.13.10 4.2.7.2.686 [id number] 044 [id number] [facility] 2022-12-21 10:40:00 2022-12-21 11:18:46 Outpatient R MARYCARMEN ROJAS [facility] [id number] [facility] 2022-12-21 10:40:00 2022-12-21 11:18:46 Office Visit Marycarmen Rojas [facility] BUILDING 1.84.114 350.1.13.10 4.2.7.2.686 [id number] 059 [id number] [facility] 2022-12-21 00:00:00 2022-12-21 00:00:00 Orders Only Doctor Unassigned, [place] [facility] 1..114 350.1.13.10 4.2.7.2.686 [id number] [id number] [facility] 2022-12-17 11:40:00 2022-12-17 11:40:00 Outpatient R XENIA LOMELI [facility] [id number] [facility] 2022-12-17 00:00:00 2022-12-17 00:00:00 Orders Only Doctor Unassigned, [place] [facility] 1.2.840.114 350.1.13.10 4.2.7.2.686 [id number] 009 [id number] [facility] 2022-12-14 00:00:00 2022-12-14 00:00:00 Orders Only Doctor Unassigned, [place] [facility] 1.2.840.114 350.1.13.10 4.2.7.2.686 [id number] 009 [id number] [facility] 2022-12-09 09:00:00 2022-12-09 10:30:44 Outpatient R [facility] [id number] [facility] 2022-12-09 09:00:00 2022-12-09 10:30:44 Office Visit Lind[facility] MEDICAL OFFICE BUILDING 1.2.840.114 350.1.13.10 4.2.7.2.686 [id number] 044 [id number] [facility] 2022-12-09 00:00:00 2022-12-09 00:00:00 Orders Only Doctor Unassigned, [place] [facility] 1.2.840.114 350.1.13.10 4.2.7.2.686 [id number] [id number] [facility] 2022-12-08 00:00:00 2022-12-08 00:00:00 Telephone [facility] MEDICAL OFFICE BUILDING 1.2.840.114 350.1.13.10 4.2.7.2.686 [id number] 044 [id number] [facility] 2022-11-30 11:45:00 2022-11-30 11:45:00 Outpatient MISA JARAMILLO [facility] [id number] [facility] 2022-11-29 00:00:00 2022-11-29 00:00:00 Refill Erick Larios [facility]?MALIKA [facility] MEDICAL OFFICE BUILDING 1.840.114 350.1.13.10 4.2.7.2.686 [id number] [facility] 2022-11-26 13:40:00 2022-11-26 13:40:00 Outpatient [facility] [id number] [facility] 2022-11-25 11:00:00 2022-11-25 11:00:00 Outpatient R MICHOACANO WILKES SHIWAN [facility] [id number] [facility] 2022-11-22 15:00:00 2022-11-22 15:00:00 Outpatient R ERICK LARIOS YU [facility] [id number] [facility] 2022-11-18 00:00:00 2022-11-18 00:00:00 Telephone [facility] MEDICAL OFFICE BUILDING 1.840.114 350.1.13.10 4.2.7.2.686 [id number] 044 [id number] [facility] 2022-11-16 10:40:00 2022-11-16 10:40:00 Outpatient R SER[facility]ison[facility]AN [facility] [id number] [facility] 2022-11-10 00:00:00 2022-11-10 00:00:00 Telephone [facility] MEDICAL OFFICE BUILDING 1.840.114 350.1.13.10 4.2.7.2.686 [id number] 044 [id number] [facility] 2022-11-10 00:00:00 2022-11-10 00:00:00 Orders Only Doctor Unassigned, [place] [facility] 1.84.114 350.1.13.10 4.2.7.2.686 [id number] [id number] [facility] 2022-11-09 10:30:00 2022-11-09 10:30:00 Outpatient R CONSTANCE STONE [facility] [id number] [facility] 2022-11-08 11:20:00 2022-11-08 11:20:00 Outpatient R MARYCARMEN ROJAS [facility] [id number] [facility] 2022-10-29 00:00:00 2022-10-29 00:00:00 Telephone Lindy [facility] MEDICAL OFFICE BUILDING 1.840.114 350.1.13.10 4.2.7.2.686 [id number] 044 [id number] [facility] 2022-10-28 13:00:00 2022-10-28 13:40:00 Telemedici ne [facility] MEDICAL OFFICE BUILDING 1.84.114 350.1.13.10 4.2.7.2.686 [id number] 044 [id number] [facility] 2022-10-28 13:00:00 2022-10-28 13:00:00 Outpatient R ÁNGEL [facility] [id number] [facility] 2022-10-28 00:00:00 2022-10-28 00:00:00 [facility] MEDICAL OFFICE BUILDING 1.840.114 350.1.13.10 4.2.7.2.686 [id number] 044 [id number] [facility] 2022-10-28 00:00:00 2022-10-28 00:00:00 Orders Only Doctor Unassigned, [place] [facility] 1.84.114 350.1.13.10 4.2.7.2.686 [id number] [id number] [facility] 2022-10-26 13:40:00 2022-10-26 13:40:00 [facility] [id number] [facility] 2022-10-25 00:00:00 2022-10-25 00:00:00 Telephone [facility] JOHN?[facility] OFF[facility] BUILD[facility] 1.2840.114 350.1.13.10 4.2.7.2.686 [id number] [facility] 2022-10-25 00:00:00 2022-10-25 00:00:00 [facility] 1.2840.114 350.1.13.10 4.2.7.2.686 [id number] [facility] 2022-10-19 10:30:00 2022-10-19 10:30:00 Outpatient R JAMSHID EALRY [facility] [id number] [facility] 2022-10-18 00:00:00 2022-10-18 00:00:00 [facility] MED[facility] OFF[facility] BUILD[facility] 1.2840.114 350.1.13.10 4.2.7.2.686 [id number] [id number] [facility] 2022-10-15 00:00:00 2022-10-15 00:00:00 Telephone Jamshid Early [facility] N[facility] BUILDING 1.2840.114 350.1.13.10 4.2.7.2.686 [id number] [facility] 2022-10-15 00:00:00 2022-10-15 00:00:00 Orders Only Doctor Unassigned, [place] [facility] 1.2840.114 350.1.13.10 4.2.7.2.686 [id number] [facility] 2022-10-14 00:00:00 2022-10-14 00:00:00 [facility] OFF[facility] BUILD[facility] 1.2.840.114 350.1.13.10 4.2.7.2.686 [id number] [id number] [facility] 2022-10-13 00:00:00 2022-10-13 00:00:00 Refill Lindy [facility] JOHN?[facility] MEDICAL OFFICE BUILDING 1.2.840.114 350.1.13.10 4.2.7.2.686 [id number] [id number] [facility] 2022-10-13 00:00:00 2022-10-13 00:00:00 Telephone Lindy [facility] JOHN?[facility] MEDICAL OFFICE BUILDING 1.2.840.114 350.1.13.10 4.2.7.2.686 [id number] [id number] [facility] 2022-10-11 00:00:00 2022-10-11 00:00:00 Patient Outreach Robin Talia L [facility] JOHN?[facility] MEDICAL OFFICE BUILDING 1.2.840.114 350.1.13.10 4.2.7.2.686 [id number] [id number] [facility] 2022-10-07 00:00:00 2022-10-07 00:00:00 [facility] MED[facility] OFF[facility] BUILD[facility] 1.2.840.114 350.1.13.10 4.2.7.2.686 [id number] [id number] [facility] 2022-09-30 00:00:00 2022-09-30 00:00:00 [facility] OFF[facility] BUILD[facility] 1.2.840.114 350.1.13.10 4.2.7.2.686 [id number] [id number] [facility] 2022-09-28 11:45:00 2022-09-28 12:13:52 Banana Ripening Room Supervisor Visit Lab, Ang - Db Lindy [facility] MEDICAL OFFICE BUILDING 1.2.840.114 350.1.13.10 4.2.7.2.686 [id number] [facility] 2022-09-28 10:40:00 2022-09-28 11:44:33 [facility] [id number] [facility] 2022-09-28 10:40:00 2022-09-28 11:44:33 Office Visit Lindy [facility] MEDICAL OFFICE BUILDING 1.2.840.114 350.1.13.10 4.2.7.2.686 [id number] 044 [id number] [facility] 2022-09-28 00:00:00 2022-09-28 00:00:00 Patient Outreach Robin Talia Hilda [facility] MEDICAL OFFICE BUILDING 1.2.840.114 350.1.13.10 4.2.7.2.686 [id number] 044 [id number] [facility] 2022-09-28 00:00:00 2022-09-28 00:00:00 Orders Only Doctor Unassigned, [place] [facility] 1.2840.114 350.1.13.10 4.2.7.2.686 [id number] 009 [id number] [facility] 2022-09-27 00:00:00 2022-09-27 00:00:00 Orders Only Doctor Unassigned, [place]ona [facility] 1.2840.114 350.1.13.10 4.2.7.2.686 [id number] 009 [id number] [facility] 2022-09-23 00:00:00 2022-09-23 00:00:00 Telephone Kley, [facility] MEDICAL OFFICE BUILDING 1.2840.114 350.1.13.10 4.2.7.2.686 [id number] 044 [id number] [facility] 2022-09-22 00:00:00 2022-09-22 00:00:00 Telephone Jamshid Early [facility] NAL BUILDING 1.2840.114 350.1.13.10 4.2.7.2.686 [id number] 059 [id number] [facility] 2022-09-22 00:00:00 2022-09-22 00:00:00 Orders Only Doctor Unassigned, [place] [facility] 1.2.840.114 350.1.13.10 4.2.7.2.686 [id number] [id number] [facility] 2022-09-18 00:00:00 2022-09-18 00:00:00 Orders Only Doctor Unassigned, [place] [facility] 1.2840.114 350.1.13.10 4.2.7.2.686 [id number] [id number] [facility] 2022-09-13 11:22:44 2022-09-13 23:59:00 Outpatient R JAMSHID EARLY [facility] [id number] [facility] 2022-09-13 11:22:44 2022-09-13 23:59:00 Hospital Encounter Jamshid Early [facility] 1.2840.114 350.1.13.10 4.2.7.2.686 [id number] [facility] 2022-09-11 00:00:00 2022-09-11 00:00:00 Orders Only Doctor Unassigned, [place] [facility] 1.2.840.114 350.1.13.10 4.2.7.2.686 [id number] 009 [id number] [facility] 2022-09-07 14:00:00 2022-09-07 14:53:27 Outpatient R JAMSHID EARLY [facility] [id number] [facility] 2022-09-07 14:00:00 2022-09-07 14:53:27 Office Visit Jamshid Early [facility] BUILDING 1.840.114 350.1.13.10 4.2.7.2.686 [id number] 059 [id number] [facility] 2022-09-07 00:00:00 2022-09-07 00:00:00 [facility] MED[facility] OFF[facility] BUILDING 1.84.114 350.1.13.10 4.2.7.2.686 [id number] 044 [id number] [facility] 2022-09-07 00:00:00 2022-09-07 00:00:00 Orders Only Doctor Unassigned, [place] [facility] 1.840.114 350.1.13.10 4.2.7.2.686 [id number] [id number] [facility] 2022-09-02 00:00:00 2022-09-02 00:00:00 Telephone Seraallison [facility] JOHN?[facility] MEDICAL OFFICE BUILDING 1.840.114 350.1.13.10 4.2.7.2.686 [id number] 044 [id number] [facility] 2022-09-02 00:00:00 2022-09-02 00:00:00 Telephone Lindy [facility] BUILDING 1.840.114 350.1.13.10 4.2.7.2.686 [id number] 044 [id number] [facility] 2022-09-01 00:00:00 2022-09-01 00:00:00 Refill Seraallison [facility] JOHN?[facility] MEDICAL OFFICE BUILDING 1.0.114 350.1.13.10 4.2.7.2.686 [id number] 044 [id number] [facility] 2022-08-31 10:40:00 2022-08-31 11:30:07 Outpatient R [facility] [id number] [facility] 2022-08-31 10:40:00 2022-08-31 11:30:07 [facility] OFFICE BUILDING 1.840.114 350.1.13.10 4.2.7.2.686 [id number] 044 [id number] [facility] 2022-08-30 11:45:00 2022-08-30 13:43:33 Office Visit Misa Ceballos [facility] 1.840.114 350.1.13.10 4.2.7.2.686 [id number] [facility] 2022-08-30 11:45:00 2022-08-30 11:45:00 Outpatient R MISA CEBALLOS [facility] [id number] [facility] 2022-08-25 00:00:00 2022-08-25 00:00:00 [facility] OFFICE BUILDING 1.840.114 350.1.13.10 4.2.7.2.686 [id number] 044 [id number] [facility] 2022-08-16 00:00:00 2022-08-16 00:00:00 Telephone Lindy [facility] JOHN?[facility] OFFICE BUILDING 1.840.114 350.1.13.10 4.2.7.2.686 [id number] 044 [id number] [facility] 2022-08-13 10:30:00 2022-08-13 11:59:43 Outpatient R MICHOACANO WILKES SHIWAN [facility] [id number] [facility] 2022-08-13 10:30:00 2022-08-13 11:59:43 Office Visit Michoacano Wilkes [facility] NAL BUILDING 1.2.840.114 350.1.13.10 4.2.7.2.686 [id number] [id number] [facility] 2022-08-11 00:00:00 2022-08-11 00:00:00 Refill Lindy [facility] MEDICAL OFFICE BUILDING 1.2.840.114 350.1.13.10 4.2.7.2.686 [id number] 044 [id number] [facility] 2022-08-05 00:00:00 2022-08-05 00:00:00 Telephone Lindy [facility] MEDICAL OFFICE BUILDING 1.2.840.114 350.1.13.10 4.2.7.2.686 [id number] 044 [id number] [facility] 2022-08-03 00:00:00 2022-08-03 00:00:00 Telephone [facility] MEDICAL OFFICE BUILDING 1.2.840.114 350.1.13.10 4.2.7.2.686 [id number] 044 [id number] [facility] 2022-08-03 00:00:00 2022-08-03 00:00:00 Orders Only Doctor Unassigned, [place] [facility] 1.2.840.114 350.1.13.10 4.2.7.2.686 [id number] [id number] [facility] 2022-07-30 11:20:00 2022-07-30 12:10:00 [facility] [id number] [facility] 2022-07-30 11:20:00 2022-07-30 12:10:00 Office Visit Kley, [facility] JOHN?[facility] MEDICAL OFFICE BUILDING 1..840.114 350.1.13.10 4.2.7.2.686 [id number] 044 [id number] [facility] 2022-07-30 00:00:00 2022-07-30 00:00:00 Refill Erick Larios [facility] MEDICAL OFFICE BUILDING 1.84.114 350.1.13.10 4.2.7.2.686 [id number] [facility] 2022-07-20 14:20:00 2022-07-20 15:53:29 Outpatient R MARYCARMEN ROJAS [facility] [id number] [facility] 2022-07-20 14:20:00 2022-07-20 15:00:00 Office Visit Marycarmen Rojas [facility] BUILDING 1.840.114 350.1.13.10 4.2.7.2.686 [id number] 059 [id number] [facility] 2022-07-15 11:53:14 2022-07-15 23:59:00 Outpatient R BRIAN ISRAEL [facility] [id number] [facility] 2022-07-15 11:00:00 2022-07-15 13:05:09 Office Visit Lindy [facility] JOHN?MALIKA [facility] MEDICAL OFFICE BUILDING 1..840.114 350.1.13.10 4.2.7.2.686 [id number] 044 [id number] [facility] 2022-07-14 00:00:00 2022-07-14 00:00:00 Telephone Lindy [facility] JOHN?MALIKA [facility] MEDICAL OFFICE BUILDING 1..840.114 350.1.13.10 4.2.7.2.686 [id number] 044 [id number] [facility] 2022-07-07 11:00:00 2022-07-07 11:00:00 Outpatient R HARRIETERICK HARRIET, ERICK [facility] [id number] [facility] 2022-07-07 00:00:00 2022-07-07 00:00:00 Transition of Care Bridgette Black 1.2.840.114 350.1.13.10 4.2.7.2.686 [id number] [facility] 2022-06-26 11:39:00 2022-07-05 17:22:00 Inpatient X RONAN BRYN [facility] [id number] [facility] 2022-06-26 11:39:00 2022-07-05 17:22:00 Hospital Encounter Ramírez Culp, Patel Jarvis, Bladimir Fajardo [facility] 1..840.114 350.1.13.10 4.2.7.2.686 [id number] 080 [id number] [facility] 2022-06-08 10:40:00 2022-06-08 11:00:15 Outpatient R SER[facility]llison [facility] [id number] [facility] 2022-06-08 10:40:00 2022-06-08 11:00:15 Office Visit Lindy [facility]?MALIKA [facility] MEDICAL OFFICE BUILDING 1..840.114 350.1.13.10 4.2.7.2.686 [id number] 044 [id number] [facility] 2022-06-08 00:00:00 2022-06-08 00:00:00 Telephone [facility] MEDICAL OFFICE BUILDING 1..840.114 350.1.13.10 4.2.7.2.686 [id number] 044 [id number] [facility] 2022-06-01 11:45:00 2022-06-01 12:08:31 Outpatient R MISA CEBALLOS [facility] [id number] [facility] 2022-06-01 11:45:00 2022-06-01 12:08:31 Office Visit Javon Ceballos[place] Ann [facility] 1.2840.114 350.1.13.10 4.2.7.2.686 [id number] [facility] 2022-05-31 00:00:00 2022-05-31 00:00:00 Telephone Lindy [facility] JOHN?MALIKA [facility] MEDICAL OFFICE BUILDING 1.2840.114 350.1.13.10 4.2.7.2.686 [id number] 044 [id number] [facility] 2022-05-24 00:00:00 2022-05-24 00:00:00 Telephone Lindy [facility] JOHN?MALIKA [facility] MEDICAL OFFICE BUILDING 1.2840.114 350.1.13.10 4.2.7.2.686 [id number] 044 [id number] [facility] 2022-05-24 00:00:00 2022-05-24 00:00:00 Telephone Lindy [facility] JOHN?MALIKA [facility] MEDICAL OFFICE BUILDING 1.2840.114 350.1.13.10 4.2.7.2.686 [id number] 044 [id number] [facility] 2022-05-22 00:00:00 2022-05-22 00:00:00 Refill Lindy [facility] MEDICAL OFFICE BUILDING 1.2840.114 350.1.13.10 4.2.7.2.686 [id number] 044 [id number] [facility] 2022-05-20 00:00:00 2022-05-20 00:00:00 Orders Only Doctor Unassigned, [place] [facility] 1.2840.114 350.1.13.10 4.2.7.2.686 [id number] [id number] [facility] 2022-05-18 11:00:00 2022-05-18 11:00:00 Outpatient R [facility]INDY [facility] [id number] [facility] 2022-05-14 00:00:00 2022-05-14 00:00:00 Telephone Lindy [facility] MEDICAL OFFICE BUILDING 1.2.840.114 350.1.13.10 4.2.7.2.686 [id number] 044 [id number] [facility] 2022-05-12 00:00:00 2022-05-12 00:00:00 Patient Outreach Sterlignseth [facility]hal [facility] MED[facility] OFFICE BUILDING 1.2.840.114 350.1.13.10 4.2.7.2.686 [id number] 044 [id number] [facility] 2022-05-11 00:00:00 2022-05-11 00:00:00 Telephone Marycarmen Rojas [facility] MEDICAL OFFICE BUILDING 1.840.114 350.1.13.10 4.2.7.2.686 [id number] 059 [id number] [facility] 2022-05-10 13:40:00 2022-05-10 15:15:11 [facility] MEDICAL OFFICE BUILDING 1.2840.114 350.1.13.10 4.2.7.2.686 [id number] 044 [id number] [facility] 2022-05-10 11:30:00 2022-05-10 11:45:00 Banana Ripening Room Supervisor Visit 2, Adc Lab Sushil Persaud [facility] 1.284.114 350.1.13.10 4.2.7.2.686 [id number] [facility] 2022-05-10 10:40:00 2022-05-10 11:19:43 Outpatient R CRYSTAL MARYCARMEN [facility] [id number] [facility] 2022-05-10 10:40:00 2022-05-10 11:19:43 Office Visit Crystal Marycarmen Stevens [facility] NAL BUILDING 1.2.840.114 350.1.13.10 4.2.7.2.686 [id number] 059 [id number] [facility] 2022-05-10 00:00:00 2022-05-10 00:00:00 [facility] OFFICE BUILDING 1.2.840.114 350.1.13.10 4.2.7.2.686 [id number] 044 [id number] [facility] 2022-05-10 00:00:00 2022-05-10 00:00:00 Orders Only Doctor Unassigned, [place]ona [facility] 1.2840.114 350.1.13.10 4.2.7.2.686 [id number] [id number] [facility] 2022-05-07 00:00:00 2022-05-07 00:00:00 Telephone [facility] BUILDING 1.2.840.114 350.1.13.10 4.2.7.2.686 [id number] 044 [id number] [facility] 2022-05-04 11:15:00 2022-05-04 11:15:00 Outpatient R MISA CEBALLOS [facility] [id number] [facility] 2022-05-03 00:00:00 2022-05-03 00:00:00 Orders Only Doctor Unassigned, [place] [facility] 1.2840.114 350.1.13.10 4.2.7.2.686 [id number] 009 [id number] [facility] 2022-05-01 00:00:00 2022-05-01 00:00:00 Patient Secure Msg Doctor Unassigned, [place] [facility] 1.840.114 350.1.13.10 4.2.7.2.686 [id number] [facility] 2022-04-29 10:40:00 2022-04-29 11:39:00 Outpatient R [facility]Y [facility] [id number] [facility] 2022-04-29 10:40:00 2022-04-29 11:39:00 Office Visit Lindy [facility] MEDICAL OFFICE BUILDING 1.840.114 350.1.13.10 4.2.7.2.686 [id number] 044 [id number] [facility] 2022-04-27 00:00:00 2022-04-27 00:00:00 Refill Lindy [facility] MEDICAL OFFICE BUILDING 1.84.114 350.1.13.10 4.2.7.2.686 [id number] 044 [id number] [facility] 2022-04-23 00:00:00 2022-04-23 00:00:00 Telephone Sushil Persaud [facility] BUILDING 1..840.114 350.1.13.10 4.2.7.2.686 [id number] 059 [id number] [facility] 2022-04-22 09:43:20 2022-04-22 23:59:00 Outpatient R [facility]Y [facility] [id number] [facility] 2022-04-22 10:15:00 2022-04-22 10:30:00 Banana Ripening Room Supervisor Visit Lab, Cameron Early Lindy [facility] MEDICAL OFFICE BUILDING 1.2.840.114 350.1.13.10 4.2.7.2.686 [id number] [facility] 2022-04-22 09:00:00 2022-04-22 09:39:36 Office Visit Brian Israel [facility] JOHN?[facility] MEDICAL OFFICE BUILDING 1.2.840.114 350.1.13.10 4.2.7.2.686 [id number] 044 [id number] [facility] 2022-04-20 00:00:00 2022-04-20 00:00:00 Telephone Brian Israel [facility] JOHN?[facility] MEDICAL OFFICE BUILDING 1.2.840.114 350.1.13.10 4.2.7.2.686 [id number] 044 [id number] [facility] 2022-04-14 00:00:00 2022-04-14 00:00:00 Telephone Erick Larios [facility] [place] [facility] BUILDING 1.2.840.114 350.1.13.10 4.2.7.2.686 [id number] [facility] 2022-04-12 00:00:00 2022-04-12 00:00:00 Refill Lindy [facility] JOHN?[facility] MEDICAL OFFICE BUILDING 1.2.840.114 350.1.13.10 4.2.7.2.686 [id number] 044 [id number] [facility] 2022-04-09 00:00:00 2022-04-09 00:00:00 Telephone Marycarmen Rojas [facility] NAL BUILDING 1.2.840.114 350.1.13.10 4.2.7.2.686 [id number] 059 [id number] [facility] 2022-04-08 00:00:00 2022-04-08 00:00:00 Telephone Marycarmen Rojas [facility] NAL BUILDING 1.2.840.114 350.1.13.10 4.2.7.2.686 [id number] 059 [id number] [facility] 2022-04-07 13:45:00 2022-04-07 14:00:00 Banana Ripening Room Supervisor Visit 2, Adc Lab Marycarmen Rojas [facility] BUILDING 1.2840.114 350.1.13.10 4.2.7.2.686 [id number] [facility] 2022-04-07 11:20:00 2022-04-07 12:19:13 Outpatient R MARYCARMEN ROJAS [facility] [id number] [facility] 2022-04-07 11:20:00 2022-04-07 12:19:13 Office Visit Marycarmen Rojas [facility] BUILDING 1.2840.114 350.1.13.10 4.2.7.2.686 [id number] 059 [id number] [facility] 2022-04-07 00:00:00 2022-04-07 00:00:00 Orders Only Doctor Unassigned, [place] [facility] 1.20.114 350.1.13.10 4.2.7.2.686 [id number] 009 [id number] [facility] 2022-04-07 00:00:00 2022-04-07 00:00:00 Patient Secure Msg Doctor Unassigned, [place] [facility] 1.2840.114 350.1.13.10 4.2.7.2.686 [id number] 019 [id number] [facility] 2022-03-29 13:30:00 2022-03-29 14:49:53 Outpatient R ERICK LARIOS YU [facility] [id number] [facility] 2022-03-29 13:30:00 2022-03-29 14:49:53 Office Visit Erick Larios [facility] JOHN?[facility] MEDICAL OFFICE BUILDING 1.2840.114 350.1.13.10 4.2.7.2.686 [id number] [facility] 2022-03-29 12:15:00 2022-03-29 12:30:00 Banana Ripening Room Supervisor Visit Lab, Ang - Db Lindy [facility] MEDICAL OFFICE BUILDING 1.84.114 350.1.13.10 4.2.7.2.686 [id number] [facility] 2022-03-25 11:00:00 2022-03-25 12:02:29 Outpatient R [facility]NDY [facility] [id number] [facility] 2022-03-25 11:00:00 2022-03-25 12:02:29 Office Visit Lindy [facility] MEDICAL OFFICE BUILDING 1.84.114 350.1.13.10 4.2.7.2.686 [id number] 044 [id number] [facility] 2022-03-25 11:00:00 2022-03-25 11:00:00 Outpatient R LINDY [facility] [id number] [facility] 2022-03-25 00:00:00 2022-03-25 00:00:00 Refill Lindy [facility] MEDICAL OFFICE BUILDING 1.84114 350.1.13.10 4.2.7.2.686 [id number] 044 [id number] [facility] 2022-03-24 00:00:00 2022-03-24 00:00:00 Orders Only Doctor Unassigned, [place] [facility] 1.114 350.1.13.10 4.2.7.2.686 [id number] [id number] [facility] 2022-03-23 00:00:00 2022-03-23 00:00:00 Refill Lindy [facility] MEDICAL OFFICE BUILDING 1.84114 350.1.13.10 4.2.7.2.686 [id number] 044 [id number] [facility] 2022-03-23 00:00:00 2022-03-23 00:00:00 [facility] MEDICAL OFFICE BUILDING 1.2840.114 350.1.13.10 4.2.7.2.686 [id number] 044 [id number] [facility] 2022-03-16 10:40:00 2022-03-16 11:45:06 Outpatient R XENIA LOMELI [facility] [id number] [facility] 2022-03-16 10:40:00 2022-03-16 11:45:06 Office Visit Xenia Lomeli [facility] BUILDING 1.2840.114 350.1.13.10 4.2.7.2.686 [id number] [facility] 2022-03-16 10:40:00 2022-03-16 10:40:00 Outpatient R ARMANI INGEGORDO [facility] [id number] [facility] 2022-03-16 00:00:00 2022-03-16 00:00:00 Orders Only Doctor Unassigned, [place] [facility] 1.2840.114 350.1.13.10 4.2.7.2.686 [id number] 009 [id number] [facility] 2022-03-15 00:00:00 2022-03-15 00:00:00 [facility]phone [facility] MEDICAL OFFICE BUILDING 1.20.114 350.1.13.10 4.2.7.2.686 [id number] 044 [id number] [facility] 2022-02-25 08:00:00 2022-02-25 09:13:51 Office Visit Lindy [facility] JOHN?MALIKA [facility] MEDICAL OFFICE BUILDING 1.2840.114 350.1.13.10 4.2.7.2.686 [id number] 044 [id number] [facility] 2022-02-25 08:00:00 2022-02-25 09:13:51 Outpatient R [facility] [id number] [facility] 2022-02-25 00:00:00 2022-02-25 00:00:00 Orders Only Doctor Unassigned, [place] [facility] 1.0.114 350.1.13.10 4.2.7.2.686 [id number] [facility] 2022-02-24 00:00:00 2022-02-24 00:00:00 Abstract Lindy [facility] 1..114 350.1.13.10 4.2.7.2.686 [id number] [facility] 2022-02-22 00:00:00 2022-02-22 00:00:00 Transition of Care Bridgette Black [facility] 1..114 350.1.13.10 4.2.7.2.686 [id number] [facility] 2022-02-05 19:22:00 2022-02-20 12:17:00 Inpatient X BLADIMIR FERRARO [facility] [id number] [facility] 2022-02-05 19:22:00 2022-02-20 12:17:00 Hospital Encounter Jovany Bronson, Jason Alvarenga, Bladimir Mondragon [facility] 1..114 350.1.13.10 4.2.7.2.686 [id number] [facility] 2022-02-05 00:00:00 2022-02-05 00:00:00 Telephone [facility] 1..114 350.1.13.10 4.2.7.2.686 [id number] [facility] 2022-02-03 00:00:00 2022-02-03 00:00:00 [facility] 1..840.114 350.1.13.10 4.2.7.2.686 [id number] [facility] 2022-02-01 13:00:00 2022-02-01 14:09:10 Office Visit Lindy [facility] JOHN?[facility] 1.840.114 350.1.13.10 4.2.7.2.686 [id number] [facility] 2022-02-01 13:00:00 2022-02-01 14:09:10 [id number] 2022-02-01 13:00:00 2022-02-01 13:00:00 Outpatient R [facility] [id number] [facility] 2022-02-01 13:00:00 2022-02-01 13:00:00 Outpatient R [facility] [id number] [facility] 2022-02-01 13:00:00 2022-02-01 13:00:00 Outpatient R [facility] [id number] [facility] 2022-02-01 00:00:00 2022-02-01 00:00:00 Abstract Lindy [facility] JOHN?[facility] 1..840.114 350.1.13.10 4.2.7.2.686 [id number] [facility] 2022-02-01 00:00:00 2022-02-01 00:00:00 Refill Lindy [facility] JOHN?[facility] 1.840.114 350.1.13.10 4.2.7.2.686 [id number] [facility] 2022-02-01 00:00:00 2022-02-01 00:00:00 [facility]phone [facility] 1.2.840.114 350.1.13.10 4.2.7.2.686 [id number] [facility] 2022-01-29 10:00:00 2022-01-29 11:30:13 Outpatient R LES VYAS [facility] [id number] [facility] 2022-01-29 10:00:00 2022-01-29 11:30:13 [facility] 1.2840.114 350.1.13.10 4.2.7.2.686 [id number] [facility] 2022-01-29 00:00:00 2022-01-29 00:00:00 [facility] 1.2840.114 350.1.13.10 4.2.7.2.686 [id number] [facility] 2022-01-29 00:00:00 2022-01-29 00:00:00 [facility] 1.2840.114 350.1.13.10 4.2.7.2.686 [id number] [facility] 2022-01-25 00:00:00 2022-01-25 00:00:00 Orders Only Doctor Unassigned, [place] [facility] 1.2840.114 350.1.13.10 4.2.7.2.686 [id number] [facility] 2022-01-21 00:00:00 2022-01-21 00:00:00 Telephone Piper Goddard [facility] 1.2.840.114 350.1.13.10 4.2.7.2.686 [id number] [facility] 2022-01-11 11:15:00 2022-01-11 11:15:00 Outpatient R CONSTANCE STONE [facility] [id number] [facility] 2022-01-05 13:45:00 2022-01-05 14:25:22 Outpatient R PHILIPPE LARSEN [facility] [id number] [facility] 2022-01-05 13:45:00 2022-01-05 14:25:22 Ancillary Visit Pavithra Rachel Craig [facility] 1.2.840.114 350.1.13.10 4.2.7.2.686 [id number] [facility] 2021-12-24 13:45:00 2021-12-24 14:45:00 Ancillary Visit Pavithra Rachel Craig [facility] 1.2.840.114 350.1.13.10 4.2.7.2.686 [id number] [facility] 2021-12-24 13:45:00 2021-12-24 13:45:00 Outpatient R PHILIPPE LARSEN [facility] [id number] [facility] 2021-12-24 10:08:03 2021-12-24 10:46:00 Outpatient R GARY MCKAY [facility] [id number] [facility] 2021-12-24 00:00:00 2021-12-24 00:00:00 Outpatient R GARY MCKAY [facility] [id number] [facility] 2021-12-24 00:00:00 2021-12-24 00:00:00 Telephone Constance Stone [facility] 1.2.0.114 350.1.13.10 4.2.7.2.686 [id number] [facility] 2021-12-22 13:45:00 2021-12-22 14:45:00 Ancillary Visit [facility]ithra [facility] 1.20.114 350.1.13.10 4.2.7.2.686 [id number] [facility] 2021-12-17 14:00:00 2021-12-17 15:16:30 Office Visit Gary Mckay [facility] 1.2.840.114 350.1.13.10 4.2.7.2.686 [id number] [facility] 2021-12-17 14:00:00 2021-12-17 15:16:30 Outpatient R TAHIR MCKAYRIQUE [facility] [id number] [facility] 2021-12-17 14:00:00 2021-12-17 14:00:00 Outpatient R TAHIR MCKAYRIQUE [facility] [id number] [facility] 2021-12-17 00:00:00 2021-12-17 00:00:00 Telephone Piper Goddard [facility] 1.2.114 350.1.13.10 4.2.7.2.686 [id number] [facility] 2021-12-16 13:45:00 2021-12-16 14:45:00 Ancillary Visit Pavithra Rachel Craig [facility] 1.284.114 350.1.13.10 4.2.7.2.686 [id number] [facility] 2021-12-16 13:45:00 2021-12-16 13:45:00 Outpatient R PHILIPPE LARSEN [facility] [id number] [facility] 2021-12-14 10:45:00 2021-12-14 10:45:00 Outpatient CONSTANCE THOMPSON [facility] [id number] [facility] 2021-12-14 10:45:00 2021-12-14 10:45:00 Outpatient CONSTANCE THOMPSON [facility] [id number] [facility] 2021-12-14 10:45:00 2021-12-14 10:45:00 Outpatient CONSTANCE THOMPSON [facility] [id number] [facility] 2021-12-10 13:00:00 2021-12-10 14:00:00 Ancillary Visit Pavithra Rachel Craig [facility] 1.2.840.114 350.1.13.10 4.2.7.2.686 [id number] [facility] 2021-12-10 13:00:00 2021-12-10 13:00:00 Outpatient PHILIPPE LYNCH [facility] [id number] [facility] 2021-12-10 01:16:00 2021-12-10 01:16:00 Outpatient JOSH [facility] [id number] [facility] 2021-12-10 00:00:00 2021-12-10 00:00:00 Armand Ball, DO: [address] [facility], [place] [address] , Ph. [facility], DR. BALL [id number] [facility] Clinics 2021-12-10 00:00:00 2021-12-10 00:00:00 Outpatient Armand Ball [facility] [id number] 2021-12-08 13:00:00 2021-12-08 15:35:22 Outpatient R GABRIELE LARSENIG [facility] [id number] [facility] 2021-12-08 13:00:00 2021-12-08 15:35:22 Ancillary Visit Wilson [facility] 1.2.840.114 350.1.13.10 4.2.7.2.686 [id number] [facility] 2021-12-04 15:15:00 2021-12-04 16:23:35 Ancillary Visit Wilson Philippe Fenton [facility] 1.2.840.114 350.1.13.10 4.2.7.2.686 [id number] [facility] 2021-12-02 09:30:00 2021-12-02 10:30:00 Ancillary Visit Pavithra Rachel Craig L [facility] 1.2.840.114 350.1.13.10 4.2.7.2.686 [id number] [facility] 2021-11-24 14:30:00 2021-11-24 15:35:05 Ancillary Visit Pavithra Rachel Craig L [facility] 1.2.840.114 350.1.13.10 4.2.7.2.686 [id number] [facility] 2021-11-20 14:30:00 2021-11-20 15:30:00 Ancillary Visit Pavithra Rachel Craig L [facility] 1.2.840.114 350.1.13.10 4.2.7.2.686 [id number] [facility] 2021-11-18 13:45:00 2021-11-18 14:45:00 Ancillary Visit Pavithra Rachel Craig L [facility] 1.2.840.114 350.1.13.10 4.2.7.2.686 [id number] [facility] 2021-11-13 10:15:00 2021-11-13 11:00:00 Ancillary Visit Pavithra Rachel Craig L [facility] 1.2.840.114 350.1.13.10 4.2.7.2.686 [id number] [facility] 2021-11-10 09:30:00 2021-11-10 10:15:00 Ancillary Visit Pavithra Rachel Craig L [facility] 1.2.840.114 350.1.13.10 4.2.7.2.686 [id number] [facility] 2021-11-06 15:15:00 2021-11-06 16:00:00 Ancillary Visit Pavithra Rachel Craig L [facility] 1.2.840.114 350.1.13.10 4.2.7.2.686 [id number] [facility] 2021-11-04 11:00:00 2021-11-04 14:47:26 Outpatient R PHILIPPE LARSEN [facility] [id number] [facility] 2021-11-04 11:00:00 2021-11-04 14:47:26 Ancillary Visit Pavithra Rachel Craig L [facility] 1.2.840.114 350.1.13.10 4.2.7.2.686 [id number] [facility] 2021-10-28 14:30:00 2021-10-28 15:30:00 Ancillary Visit Pavithra Rachel Craig L [facility]ILD[facility] 1.2.840.114 350.1.13.10 4.2.7.2.686 [id number] [facility] 2021-10-27 00:00:00 2021-10-27 00:00:00 Transition of Care Bridgette Black 1.840.114 350.1.13.10 4.2.7.2.686 [id number] [facility] 2021-10-26 11:47:00 2021-10-26 11:47:00 Outpatient ERUCHEON_R [facility] [id number] [place] [facility] 2021-10-26 00:00:00 2021-10-26 00:00:00 Patient Secure Msg Doctor Unassigned, [place] [facility] 1.840.114 350.1.13.10 4.2.7.2.686 [id number] [facility] 2021-10-22 11:29:00 2021-10-25 12:30:00 Inpatient X APOLLO REESE [facility] [id number] [facility] 2021-10-22 11:29:00 2021-10-25 12:30:00 Hospital Encounter Randi Richardson Vinod P [facility] 1.840.114 350.1.13.10 4.2.7.2.686 [id number] [facility] 2021-10-07 13:00:00 2021-10-07 13:00:00 Outpatient PHILIPPE LYNCH [facility] [id number] [facility] 2021-10-07 13:00:00 2021-10-07 13:00:00 Outpatient PHILIPPE LYNCH [facility] [id number] [facility] 2021-09-30 10:00:00 2021-09-30 10:30:00 Office Visit Case, [facility] 1.114 350.1.13.10 4.2.7.2.686 [id number] [facility] 2021-09-30 10:00:00 2021-09-30 10:00:00 Outpatient R CLAY CASE [facility] [id number] [facility] 2021-09-30 00:00:00 2021-09-30 00:00:00 Telephone Sebastian [facility] 1..114 350.1.13.10 4.2.7.2.686 [id number] [facility] 2021-09-30 00:00:00 2021-09-30 00:00:00 Orders Only Doctor Unassigned, [place] [facility] 1.84.114 350.1.13.10 4.2.7.2.686 [id number] [facility] 2021-09-29 10:15:00 2021-09-29 11:38:54 Outpatient PHILIPPE LYNCH [facility] [id number] [facility] 2021-09-16 13:45:00 2021-09-16 16:59:28 Ancillary Visit Arlet Schwartz Craig L [facility] 1.840.114 350.1.13.10 4.2.7.2.686 [id number] [facility] 2021-09-16 13:45:00 2021-09-16 16:59:28 Outpatient PHILIPPE LYNCH [facility] [id number] [facility] 2021-09-16 13:45:00 2021-09-16 13:45:00 Outpatient PHILIPPE LYNCH [facility] [id number] [facility] 2021-09-16 00:00:00 2021-09-16 00:00:00 Case Management Arlet Schwartz [facility] 1.2.840.114 350.1.13.10 4.2.7.2.686 [id number] [facility] 2021-09-01 15:45:00 2021-09-01 16:00:00 Office Visit [facility] 1.2.840.114 350.1.13.10 4.2.7.2.686 [id number] [facility] 2021-09-01 15:45:00 2021-09-01 16:00:00 Office Visit [facility] 1.2.840.114 350.1.13.10 4.2.7.2.686 [id number] [facility] 2021-09-01 15:45:00 2021-09-01 15:45:00 Outpatient R COSNTANCE STONE [facility] [id number] [facility] 2021-08-31 12:23:00 2021-08-31 12:23:00 Outpatient JOSH [facility] [id number] [facility]ospita l [facility] 2021-08-31 00:00:00 2021-08-31 00:00:00 Armand Ball, DO: [address], [facility], [place] [address] , Ph. [phone] [place] [address] - [facility], [address]. BALL [id number] [facility] ty Hospita l Clinics 2021-08-31 00:00:00 2021-08-31 00:00:00 Outpatient Armand Ball [facility] [id number] 2021-08-18 23:55:00 2021-08-29 11:50:00 Inpatient 3 [place] [id number] [facility] 2021-08-19 00:00:00 2021-08-19 00:00:00 Transition of Care Bridgette Black 1.114 350.1.13.10 4.2.7.2.686 [id number] [facility] 2021-08-17 13:55:00 2021-08-18 22:30:00 Outpatient X MONIQUE GALLO [facility] [id number] [facility] 2021-08-17 13:55:00 2021-08-18 22:30:00 Emergency Nj Lopez Erin Leigh [facility] 1.114 350.1.13.10 4.2.7.2.686 [id number] [facility] 2021-08-17 13:55:00 2021-08-18 22:30:00 Outpatient X MONIQUE GALLO [facility] [id number] [facility] 2021-08-11 10:00:00 2021-08-11 10:20:00 Office Visit Xenia Lomeli [facility] 1.114 350.1.13.10 4.2.7.2.686 [id number] [facility] 2021-08-11 10:00:00 2021-08-11 10:00:00 Outpatient XENIA BURKS [facility] [id number] [facility] 2021-08-11 10:00:00 2021-08-11 10:00:00 Outpatient XENIA BURKS [facility] [id number] [facility] 2021-08-04 00:00:00 2021-08-04 00:00:00 Orders Only Doctor Unassigned, [place] [facility] 1.114 350.1.13.10 4.2.7.2.686 [id number] [facility] 2021-07-30 12:23:00 2021-07-30 12:23:00 Outpatient JOSH [facility] [id number] [facility] 2021-07-30 00:00:00 2021-07-30 00:00:00 Armand Ball, DO: [address], [address], [place] [address] , Ph. [facility], [address] BALL [id number] [facility] 2021-07-30 00:00:00 2021-07-30 00:00:00 Outpatient Aramnd Ball [facility] [id number] 2021-07-27 00:00:00 2021-07-27 00:00:00 Telephone Natalio Vigil [facility] 1.840.114 350.1.13.10 4.2.7.2.686 [id number] [facility] 2021-07-23 00:00:00 2021-07-23 00:00:00 Transition of Care Bridgette Black PLAHO[facility] 1.840.114 350.1.13.10 4.2.7.2.686 [id number] [facility] 2021-07-21 10:30:00 2021-07-21 10:30:00 Outpatient MISA JARAMILLO [facility] [id number] [facility] 2021-07-21 00:00:00 2021-07-21 00:00:00 Telephone Clay Case [facility] .840.114 350.1.13.10 4.2.7.2.686 [id number] [facility] 2021-07-14 12:36:00 2021-07-20 14:15:00 Inpatient X NATALIO VIGIL [facility] [id number] [facility] 2021-07-14 12:36:00 2021-07-20 14:15:00 Hospital Encounter See Fish Natalio Hinds, Lilly GUTIERREZNIE [facility] 1..840.114 350.1.13.10 4.2.7.2.686 [id number] [facility] 2021-06-25 11:32:00 2021-06-25 11:32:00 Outpatient ERICKSON_R [facility] [id number] [place] [facility] 2021-06-04 03:56:00 2021-06-04 03:56:00 Outpatient ERICKSON_R [facility] [id number] [place] [facility] 2021-06-01 10:15:00 2021-06-01 10:15:00 Outpatient R ASYA WALSH [facility] [id number] [facility] 2021-06-01 10:15:00 2021-06-01 10:15:00 Outpatient R ASYA WALSH [facility] [id number] [facility] 2021-05-26 15:30:00 2021-05-26 15:30:00 Outpatient R CONSTANCE STONE [facility] [id number] [facility] 2021-05-26 15:07:34 2021-05-26 15:22:34 Office Visit Constance Stone [facility] 1..840.114 350.1.13.10 4.2.7.2.686 [id number] [facility] 2021-05-26 11:22:00 2021-05-26 11:22:00 Outpatient ERICKSON_R [facility] [id number] [place] [facility] 2021-05-26 00:00:00 2021-05-26 00:00:00 Telephone Xenia Lomeli BUILDING 1.2.840.114 350.1.13.10 4.2.7.2.686 [id number] [facility] 2021-05-26 00:00:00 2021-05-26 00:00:00 Orders Only Doctor Unassigned, [place] [facility] 1.2.840.114 350.1.13.10 4.2.7.2.686 [id number] [facility] 2021-05-21 15:00:00 2021-05-21 16:29:05 Office Visit Xenia Lomeli 1.2.840.114 350.1.13.10 4.2.7.2.686 [id number] [facility] 2021-05-21 15:00:00 2021-05-21 16:29:05 Outpatient R ARMANIXENIA [facility] [id number] [facility] 2021-05-21 15:00:00 2021-05-21 15:00:00 Outpatient R ARMANI XENIA [facility] [id number] [facility] 2021-05-19 13:55:32 2021-05-19 14:36:21 Office Visit Misa Ceballos [facility] 1.2.840.114 350.1.13.10 4.2.7.2.686 [id number] [facility] 2021-05-19 13:55:00 2021-05-19 14:36:21 Outpatient R MISA CEBALLOS [facility] [id number] [facility] 2021-05-19 13:55:00 2021-05-19 14:36:21 Outpatient R MISA CEBALLOS [facility] [id number] [facility] 2021-05-18 02:16:00 2021-05-18 02:16:00 Outpatient ERUCHEON_R [facility] [id number] [place] [facility] 2021-05-18 00:00:00 2021-05-18 00:00:00 Outpatient Armand Ball [facility] [id number] 2021-05-18 00:00:00 2021-05-18 00:00:00 Armand Ball, DO: [address], [place] [address] , Ph. [facility], [address] [id number] [facility] ty Hospita l [facility] 2021-05-15 10:45:00 2021-05-15 10:45:00 Outpatient R MISA CEBALLOS [facility] [id number] [facility] 2021-05-12 11:40:00 2021-05-12 11:40:00 Outpatient R XENIA LOMELI [facility] [id number] [facility] 2021-05-11 10:00:00 2021-05-11 10:00:00 Outpatient R [facility] [id number] [facility] 2021-04-20 15:07:35 2021-04-20 16:31:53 Office Visit [facility]ck[facility] 1.2.840.114 350.1.13.10 4.2.7.2.686 [id number] [facility] [id number] [facility] 2021-04-20 15:30:00 2021-04-20 15:30:00 Outpatient R GARY MCKAY [facility] [id number] [facility] 2021-04-13 12:29:00 2021-04-13 12:29:00 Outpatient ERICKSON_R [facility] [id number] [place] [facility] 2021-04-13 00:00:00 2021-04-13 00:00:00 Outpatient Armand Ball [facility] [id number] 2021-04-13 00:00:00 2021-04-13 00:00:00 Armand Ball, DO: [address], [facility] G, [place] [address] , Ph. [phone] [facility], [address] [id number] [facility] 2021-03-24 00:00:00 2021-03-24 00:00:00 Telephone Constance Stone [facility] 1..840.114 350.1.13.10 4.2.7.2.686 [id number] [facility] 2021-03-03 13:57:44 2021-03-03 23:59:00 Hospital Encounter Gary Mckay R [facility] 1..840.114 350.1.13.10 4.2.7.2.686 [id number] [facility] 2021-03-03 00:00:00 2021-03-03 00:00:00 Outpatient R GARY MCKAY [facility] [id number] [facility] 2021-02-26 15:00:00 2021-02-26 15:00:00 Outpatient R [facility] [id number] [facility] 2021-02-18 01:53:00 2021-02-18 01:53:00 Outpatient ERICKSON_R [facility] [id number] [place] [facility] 2021-02-17 12:16:00 2021-02-17 12:16:00 Outpatient ERICKSON_R [facility] [id number] [place] [facility] 2021-02-17 00:00:00 2021-02-17 00:00:00 Outpatient Armand Ball [facility] [id number] 2021-02-17 00:00:00 2021-02-17 00:00:00 Armand Ball, DO: [address], [place] [address] , Ph. [phone] [facility], [address] [id number] [facility] 2021-02-16 11:45:00 2021-02-16 11:45:00 Outpatient CONSTANCE THOMPSON [facility] [id number] [facility] 2021-02-16 00:00:00 2021-02-16 00:00:00 Orders Only Doctor Unassigned, [place] [facility] 1..840.114 350.1.13.10 4.2.7.2.686 [id number] [facility] 2021-02-12 13:06:20 2021-02-12 15:02:25 Ancillary Visit Pavithra Rachel Craig L [facility] 1..840.114 350.1.13.10 4.2.7.2.686 [id number] [facility] 2021-01-13 12:56:00 2021-01-13 12:56:00 Outpatient QUINN_R [facility] [id number] [facility] 2021-01-13 00:00:00 2021-01-13 00:00:00 Armand Ball, DO: [address], [place] [address] , Ph. [phone] [facility], [address] [id number] [place] [facility] 2021-01-13 00:00:00 2021-01-13 00:00:00 Outpatient Armand Ball [facility] [id number] 2021-01-05 11:30:00 2021-01-05 11:30:00 Outpatient R [facility] [id number] [facility] 2021-01-01 13:00:00 2021-01-01 13:00:00 Outpatient Diogenes PHILIPPE LARSEN [facility] [id number] [facility] 2020-12-02 08:00:00 2020-12-02 08:00:00 Outpatient Diogenes PHILIPPE LARSEN [facility] [id number] [facility] 2020-11-27 14:40:00 2020-11-27 14:40:00 Outpatient CONSTANCE THOMPSON [facility] [id number] [facility] 2020-11-27 02:06:00 2020-11-27 02:06:00 Outpatient NASIRLUIZA [facility] [id number] [facility] 2020-11-27 00:00:00 2020-11-27 00:00:00 Armand Ball, DO: [address], [facility], [place] [address] , Ph. [phone] [place] [address] - [facility], [address] BALL [id number] [facility] 2020-11-27 00:00:00 2020-11-27 00:00:00 Outpatient Armand Ball [facility] [id number] 2020-11-25 10:30:00 2020-11-25 10:30:00 Outpatient CONSTANCE THOMPSON [facility] [id number] [facility] 2020-11-11 11:40:00 2020-11-11 11:40:00 Outpatient R XENIA LOMELI [facility] [id number] [facility] 2020-11-10 10:00:00 2020-11-10 10:00:00 Outpatient Diogenes CHUCHO RÍOS [facility] [id number] [facility] 2020-11-04 09:00:00 2020-11-04 09:00:00 Outpatient Diogenes CONSTANCE STONE [facility] [id number] [facility] 2020-10-30 11:59:00 2020-10-30 11:59:00 Outpatient ERCATALINO_R [facility] [id number] 2020-10-30 00:00:00 2020-10-30 00:00:00 Armand Ball, DO: [address] [place] [place] [address] , Ph. [facility], [address] BALL [id number] [facility] 2020-10-30 00:00:00 2020-10-30 00:00:00 Outpatient Armand Ball [facility] [id number] 2020-10-09 03:22:00 2020-10-09 03:22:00 Outpatient JOSH [facility] [id number] [facility] 2020-10-09 00:00:00 2020-10-09 00:00:00 Armand Ball, DO: [address] [place] [address] , Ph. [phone] [facility], [address] [place] [id number] [facility] 2020-10-09 00:00:00 2020-10-09 00:00:00 Outpatient Armand Ball [facility] [id number] 2020-10-08 10:55:05 2020-10-08 11:25:05 Office Visit Clay Case [facility] [id number] 4.2.7.2.686 [id number] [facility] 2020-10-08 11:00:00 2020-10-08 11:00:00 Outpatient R CLAY CASE [facility] [id number] [facility] 2020-09-09 12:52:00 2020-09-09 12:52:00 Outpatient ERICKSON_R [facility] [id number] [facility] 2020-09-09 00:00:00 2020-09-09 00:00:00 Outpatient Armand Ball [facility] [id number] 2020-09-09 00:00:00 2020-09-09 00:00:00 Armand Ball, DO: [address] , [place] [address] , Ph. [facility] - [facility] [address] [id number] [facility] 2020-08-25 00:00:00 2020-08-25 00:00:00 Telephone Xenia Lomeli [facility] 1..840.114 350.1.13.10 4.2.7.2.686 [id number] [facility] 2020-08-12 11:41:00 2020-08-12 11:41:00 Outpatient ERICKSON_R [facility] [id number] [facility] 2020-08-07 12:43:00 2020-08-07 12:43:00 Outpatient ERICKSON_R [facility] [id number] [facility] 2020-08-07 00:00:00 2020-08-07 00:00:00 Outpatient Armand Ball [facility] [id number] 2020-08-07 00:00:00 2020-08-07 00:00:00 Armand Ball, DO: [address], [address], [place] [address] , Ph. [facility] - [facility] [address] [id number] [facility] 2020-08-04 10:49:00 2020-08-04 10:49:00 Outpatient ERICKSON_R [facility] [id number] [facility] 2020-07-15 11:40:00 2020-07-15 11:40:00 Outpatient XENIA BURKS [facility] [id number] [facility] 2020-07-15 08:17:25 2020-07-15 08:37:25 Telemedici ne Visit Xenia Lomeli [facility] 1..840.114 350.1.13.10 4.2.7.2.686 [id number] [facility] 2020-07-14 02:25:00 2020-07-14 02:25:00 Outpatient ERICKSON_R [facility] [id number] [facility] 2020-07-10 04:06:00 2020-07-10 04:06:00 Outpatient ERICKSON_R [facility] [id number] [facility] 2020-07-10 00:00:00 2020-07-10 00:00:00 Orders Only Doctor Unassigned, [place] [facility] 1..840.114 350.1.13.10 4.2.7.2.686 [id number] [facility] 2020-07-10 00:00:00 2020-07-10 00:00:00 Outpatient Armand Ball [facility] [id number] 2020-07-10 00:00:00 2020-07-10 00:00:00 Armand Ball, DO: [address], [address], [place] [address] , Ph. [phone] [facility] [address] [id number] [facility] 2020-07-09 11:05:04 2020-07-09 12:29:03 Office Visit Case, [facility] 1.840.114 350.1.13.10 4.2.7.2.686 [id number] [facility] 2020-07-09 11:30:00 2020-07-09 11:30:00 Outpatient CLAY SALGUERO [facility] [id number] [facility] 2020-07-01 12:34:00 2020-07-01 12:34:00 Outpatient QUINNCodyDiogenes [facility] [id number] [facility] 2020-06-19 00:00:00 2020-06-19 00:00:00 Telephone Case, [facility] 1.840.114 350.1.13.10 4.2.7.2.686 [id number] [facility] 2020-06-19 00:00:00 2020-06-19 00:00:00 Telephone Case, [facility] 1.840.114 350.1.13.10 4.2.7.2.686 [id number] [facility] 2020-04-25 00:00:00 2020-04-25 00:00:00 Telephone Xenia Lomeli [facility] 1.2.840.114 350.1.13.10 4.2.7.2.686 [id number] [facility] 2020-04-18 08:33:49 2020-04-18 10:11:45 Telemedici ne Visit Constnace Stone [facility] Kya [facility] 1.2.840.114 350.1.13.10 4.2.7.2.686 [id number] [facility] 2020-04-18 08:30:00 2020-04-18 08:30:00 Outpatient R CONSTANCE STONE [facility] [id number] [facility] 2020-04-02 13:04:22 2020-04-02 14:11:31 Office Visit Clay Case [facility] 1.2.840.114 350.1.13.10 4.2.7.2.686 [id number] [facility] 2020-04-02 13:00:00 2020-04-02 13:00:00 Outpatient R CLAY CASE [facility] [id number] [facility] 2020-03-28 13:26:47 2020-03-28 13:46:47 Telemedici ne Visit Xenia Lomeli [facility] 1.2.840.114 350.1.13.10 4.2.7.2.686 [id number] [facility] 2020-03-28 09:00:00 2020-03-28 09:00:00 Outpatient R XENIA LOMELI [facility] [id number] [facility] 2020-03-21 08:00:00 2020-03-21 08:00:00 Outpatient R CONSTANCE STONE [facility] [id number] [facility] 2020-03-21 00:00:00 2020-03-21 00:00:00 Transition of Care Jacquelyn Delgado 1.2.840.114 350.1.13.10 4.2.7.2.686 [id number] [facility] 2020-03-21 00:00:00 2020-03-21 00:00:00 Refill Bartolome Haley [facility] 1.2.840.114 350.1.13.10 4.2.7.2.686 [id number] [facility] 2020-03-18 11:53:00 2020-03-20 17:30:00 Hospital Encounter Gavin Quesada Vinod P [facility] 1.2840.114 350.1.13.10 4.2.7.2.686 [id number] [facility] 2020-03-20 08:00:00 2020-03-20 08:00:00 Outpatient CHUCHO PHELPS JR [facility] [id number] [facility] 2020-03-14 18:40:00 2020-03-14 22:52:00 Emergency See [facility] 1.2.840.114 350.1.13.10 4.2.7.2.686 [id number] [facility] 2020-03-14 00:00:00 2020-03-14 00:00:00 Telephone Constance Stone [facility] [place] [facility] 1.2.840.114 350.1.13.10 4.2.7.2.686 [id number] [facility] 2020-02-14 08:30:29 2020-02-29 09:41:43 Office Visit Constance Stone [facility] 1.2.840.114 350.1.13.10 4.2.7.2.686 [id number] [facility] 2020-02-15 12:52:26 2020-02-18 11:43:28 Banana Ripening Room Supervisor Visit [facility] Armani Ingegordo [facility] 1.2.840.114 350.1.13.10 4.2.7.2.686 [id number] [facility] 2020-02-15 11:01:17 2020-02-15 12:42:54 [facility] 1.2840.114 350.1.13.10 4.2.7.2.686 [id number] [facility] 2020-02-15 11:00:00 2020-02-15 11:00:00 Outpatient R INGE LOMELIGORDO [facility] [id number] [facility] 2020-02-15 00:00:00 2020-02-15 00:00:00 Orders Only Doctor Unassigned, [place] [facility] 1.2.840.114 350.1.13.10 4.2.7.2.686 [id number] [facility] 2020-02-14 10:45:54 2020-02-14 11:00:54 Laboratory Only Only, Adc Test Constance Stone [facility] 1.2.840.114 350.1.13.10 4.2.7.2.686 [id number] [facility] 2020-02-14 08:15:00 2020-02-14 08:15:00 [facility] [id number] [facility] 2020-02-13 16:29:00 2020-02-13 21:01:00 Emergency Lisa Obregon [facility] 1.2.840.114 350.1.13.10 4.2.7.2.686 [id number] [facility] 2020-02-13 00:00:00 2020-02-13 00:00:00 Orders Only Doctor Unassigned, [place] [facility] 1.2.840.114 350.1.13.10 4.2.7.2.686 [id number] [facility] 2020-02-08 00:00:00 2020-02-08 00:00:00 Refill [facility] Escamilla [facility] 1.2.840.114 350.1.13.10 4.2.7.2.686 [id number] [facility] 2020-02-08 00:00:00 2020-02-08 00:00:00 Telephone Bertha Constance [facility] 1.2.840.114 350.1.13.10 4.2.7.2.686 [id number] [facility] 2020-01-18 08:06:02 2020-01-18 08:59:38 Office Visit Constance Stone [facility] 1.2.840.114 350.1.13.10 4.2.7.2.686 [id number] [facility] 2020-01-18 08:15:00 2020-01-18 08:15:00 Outpatient R CONSTANCE STONE [facility] [id number] [facility] 2020-01-11 10:15:00 2020-01-11 10:15:00 Outpatient R CONSTANCE STONE [facility] [id number] [facility] 2020-01-04 08:40:20 2020-01-11 07:46:14 Telemedici ne Visit Constance Stone [facility] 1.2.840.114 350.1.13.10 4.2.7.2.686 [id number] [facility] 2020-01-04 10:00:00 2020-01-04 10:00:00 Outpatient R CONSTANCE STONE [facility] [id number] [facility] 2019-09-27 08:40:46 2019-11-08 16:18:11 Telemedici ne Visit Constance Stone [facility] 1.2.840.114 350.1.13.10 4.2.7.2.686 [id number] [facility] 2019-11-02 08:14:39 2019-11-06 09:14:22 Telemedici ne Visit Constance Stone [facility] 1.2.840.114 350.1.13.10 4.2.7.2.686 [id number] [facility] 2019-11-02 10:15:00 2019-11-02 10:15:00 Outpatient R CONSTANCE STONE [facility] [id number] [facility] 2019-09-27 11:00:00 2019-09-27 11:00:00 Outpatient R CONSTANCE STONE [facility] [id number] [facility] 2019-09-18 10:10:43 2019-09-18 11:30:31 Banana Ripening Room Supervisor Visit , [facility] V[facility] Room - [facility] 1.2.840.114 350.1.13.10 4.2.7.2.686 [id number] [facility] 2019-09-18 10:11:01 2019-09-18 11:30:06 Banana Ripening Room Supervisor Visit , [facility] Room 1 - [facility] 1.2.840.114 350.1.13.10 4.2.7.2.686 [id number] [facility] 2019-09-18 10:00:00 2019-09-18 10:00:00 Outpatient R [facility] [id number] [facility] 2019-08-31 00:00:00 2019-08-31 00:00:00 Telephone Ochoa Escamilla [facility] 1.2.840.114 350.1.13.10 4.2.7.2.686 [id number] [facility] 2019-08-28 00:00:00 2019-08-28 00:00:00 Telephone Ochoa Escamilla [facility] 1.2.840.114 350.1.13.10 4.2.7.2.686 [id number] [facility] 2019-08-28 00:00:00 2019-08-28 00:00:00 Refill Ochoa Escamilla [facility] 1.2.840.114 350.1.13.10 4.2.7.2.686 [id number] [facility] 2019-08-24 10:27:26 2019-08-24 12:24:08 Office Visit Constance Stone [facility] 1.2.840.114 350.1.13.10 4.2.7.2.686 [id number] [facility] 2019-08-21 00:00:00 2019-08-21 00:00:00 Telephone Ochoa Escamilla [facility] 1.2.840.114 350.1.13.10 4.2.7.2.686 [id number] [facility] 2019-08-21 00:00:00 2019-08-21 00:00:00 Orders Only Doctor Unassigned, [place] [facility] 1.2.840.114 350.1.13.10 4.2.7.2.686 [id number] [facility] 2019-08-21 00:00:00 2019-08-21 00:00:00 Letter (Out) Ochoa Escamilla [facility] 1.2.840.114 350.1.13.10 4.2.7.2.686 [id number] [facility] 2019-08-18 00:00:00 2019-08-18 00:00:00 Telephone Ochoa Escamilla [facility] 1.2.840.114 350.1.13.10 4.2.7.2.686 [id number] [facility] 2019-08-16 00:00:00 2019-08-16 00:00:00 Telephone Ochoa Escamilla [facility] 1.2.840.114 350.1.13.10 4.2.7.2.686 [id number] [facility] 2019-08-13 00:00:00 2019-08-13 00:00:00 Telephone Ochoa Escamilla [facility] 1.2.840.114 350.1.13.10 4.2.7.2.686 [id number] [facility] 2019-08-11 00:00:00 2019-08-11 00:00:00 Orders Only Doctor Unassigned, [place] [facility] 1.2.840.114 350.1.13.10 4.2.7.2.686 [id number] [facility] 2019-07-27 00:00:00 2019-07-27 00:00:00 Refill Jayden Mitchell [facility] 1.2.840.114 350.1.13.10 4.2.7.2.686 [id number] [facility] 2019-03-15 00:00:00 2019-03-15 00:00:00 Refill Stephen Lucilajose [facility] 1.2.840.114 350.1.13.10 4.2.7.2.686 [id number] [facility] 2019-03-15 00:00:00 2019-03-15 00:00:00 Orders Only Doctor Unassigned, [place] [facility] 1.2.840.114 350.1.13.10 4.2.7.2.686 [id number] [id number] [facility] 2019-03-14 00:00:00 2019-03-14 00:00:00 Telephone Ochoa Escamilla [facility] Office Building One 1.2.840.114 350.1.13.10 4.2.7.2.686 [id number] [facility] 2019-02-02 09:26:59 2019-03-02 15:02:45 Office Visit Ochoa Escamilla [facility] 1.2.840.114 350.1.13.10 4.2.7.2.686 [id number] [facility] 2019-02-28 00:00:00 2019-02-28 00:00:00 Telephone Ochoa Escamilla [facility] 1.2.840.114 350.1.13.10 4.2.7.2.686 [id number] [facility] 2019-02-20 10:56:36 2019-02-20 11:40:54 Office Visit Jayden Mitchell [facility] 1.2.840.114 350.1.13.10 4.2.7.2.686 [id number] [facility] 2019-02-20 00:00:00 2019-02-20 00:00:00 Orders Only Doctor Unassigned, [place] [facility] 1.2.840.114 350.1.13.10 4.2.7.2.686 [id number] [facility] 2019-02-13 00:00:00 2019-02-13 00:00:00 Telephone [facility] 1.2.840.114 350.1.13.10 4.2.7.2.686 [id number] [facility] 2019-02-02 10:49:58 2019-02-02 11:04:58 Banana Ripening Room Supervisor Visit 2, Adc Lab Ochoa Escamilla [facility] 1.2.840.114 350.1.13.10 4.2.7.2.686 [id number] [facility] 2019-02-02 00:00:00 2019-02-02 00:00:00 Telephone Ochoa Escamilla [facility] 1.2.840.114 350.1.13.10 4.2.7.2.686 [id number] [facility] 2019-01-31 13:13:24 2019-01-31 23:59:00 Hospital Encounter Dara Golden BUILDING 1.2.840.114 350.1.13.10 4.2.7.2.686 [id number] [facility] 2019-01-29 00:00:00 2019-01-29 00:00:00 Telephone Ochoa Escamilla [facility] 1.2.840.114 350.1.13.10 4.2.7.2.686 [id number] [facility] 2019-01-26 11:59:24 2019-01-26 13:56:45 Office Visit Leti Escamillazatariq Ann [facility] 1.2.840.114 350.1.13.10 4.2.7.2.686 [id number] [facility] 2019-01-24 00:00:00 2019-01-24 00:00:00 Telephone Ochoa Escamilla [facility] 1.2.840.114 350.1.13.10 4.2.7.2.686 [id number] [id number] [facility] 2019-01-22 00:00:00 2019-01-22 00:00:00 Telephone Ochoa Escaimlla [facility] 1.2.840.114 350.1.13.10 4.2.7.2.686 [id number] [facility] 2019-01-16 00:00:00 2019-01-16 00:00:00 Orders Only Doctor Unassigned, [place] [facility] 1.2.840.114 350.1.13.10 4.2.7.2.686 [id number] [facility] 2018-12-28 00:00:00 2018-12-28 00:00:00 Orders Only Doctor Unassigned, [place] [facility] 1.2.840.114 350.1.13.10 4.2.7.2.686 [id number] [id number] [facility] 2018-08-24 00:00:00 2018-08-24 00:00:00 Orders Only Doctor Unassigned, [place] [facility] 1.2.840.114 350.1.13.10 4.2.7.2.686 [id number] [id number] [facility] Results Test Description Test Time Test Comments Results Resul t Comments Source PHYSICIAN ORDERS 2024-09-02 4 15:46:03 Ordered by an unspecified provider. [facility] DME/SUPPLY JUSTIFICATION 2024-08-04 8 16:08:32 Ordered by an unspecified provider. [facility] DME/SUPPLY JUSTIFICATION 2024-08-04 8 16:08:26 Ordered by an unspecified provider. [facility] SCANNED LAB RESULTS 2024-06-03 7 20:47:02 Ordered by an unspecified provider. [facility] PHYSICIAN ORDERS 2024-05-05 0 21:19:25 Ordered by an unspecified provider. [facility] XR KNEE 3 VW LEFT 2024-04-03 5 22:12:37 EXAM: XR KNEE 3 VW LEFT HISTORY: left knee pain Room COMPARISON: None. FINDINGS: Radiographs of the left knee demonstrate no acute fracture or dislocation.The joint spaces are preserved. Alignment is within normal limits. Smallpatellar enthesophyte. Diffuse osseous demineralization. Small jointeffusion. Arterial vascular calcifications of the posterior knee. [id number]:37* Test Item Value Reference Range Interpretation Comme nts TROPONIN I (test code = 2771336780) 0.031 ng/mL <=0.034 MAJOR (test code = [...] of biotin. Lab Interpretation (test code = 06033-5) [facility] (48868)2024-01-16 23:52:55* Test Item Value Reference Range Interpretation Comme nts NA (test code = 3924226608) 141 mmol/L 135-145 K (test code = 5236856775) 3.5 mmol/L 3.5-5.0 CL (test code = 8552898375) 103 mmol/L 98-108 CO2 TOTAL (test code = 9298779142) 31 mmol/L 23-31 AGAP (test code = 0060626451) 7 2-16 BUN (test code = 0475842795) 17 mg/dL 7-23 GLUCOSE (test code = 1296644642) 74 mg/dL 70-110 CREATININE (test code = 2160-0) 1.30 mg/dL 0.50-1.04 H TOTAL BILI (test code = 8569554606) 0.8 mg/dL 0.1-1.1 CALCIUM (test code = 6648666522) 9.4 mg/dL 8.6-10.6 T PROTEIN (test code = 6200783964) 8.0 g/dL 6.3-8.2 ALBUMIN (test code = 2918805279) 4.0 g/dL 3.5-5.0 ALK PHOS (test code = 7716277432) 56 U/L 34-122 ALTv (test code = 1742-6) 11 U/L 5-35 AST(SGOT) (test code = 0566419524) 19 U/L 13-40 eGFR (test code = 76870-0) 42.4 mL/min/1.73m2 CKD-EPI eGFR (2020). Assuming creatinine has been stable day-to-day for at least three months, the eGFR indicates Category G3b (30 - 44 mL/min/1.73 m2) Lab Interpretation (test code = 64858-9) [facility] [id number] 23:52:34* Test Item Value Reference Range Interpretation Comme nts LIPASE (test code = 2257358387) 52 U/L 0-220 Lab Interpretation (test cod e = 62276-0) Normal [facility] [id number] 23:40:33* Test Item Value Reference Range Interpretation [...] g/dL 31.6-35.1 L RDW-SD (test code = 28648-5) 49.3 fL 39.0-49.9 RDW-CV (test code = 788-0) 17.4 % 12.0-15.5 H PLT (test code = 777-3) 288 166-358 MPV (test code = 99929-4) 10.3 fL 9.5-12.9 NRBC/100 WBC (test code = 9478065254) 0.0 0.0-10.0 NRBC x10^3 (test code = 7739644390) See_Comment [Automated messa ge] The system which generated this result transmitted reference range: 10*3/?L. The reference range was not used to interpret this result as normal/abnormal. GRAN MAT (NEUT) % (test code = 770-8) 74.4 % IMM GRAN % (test code = 9406122311) 0.50 % LYMPH % (test code = 736-9) 11.2 % MONO % (test code = 5905-5) 10.0 % EOS % (test code = 713-8) 3.4 % BASO % (test code = 706-2) 0.5 % GRAN MAT x10^3(ANC) (test code = 3003724165) 7.21 10*3/uL 1.88-7.09 H IMM GRAN x10^3 (test code = 5814576190) 0.05 10*3/uL 0.00-0.06 LYMPH x10^3 (test code = 731-0) 1.09 10*3/uL 1.32-3.29 L MONO x10^3 (test code = 742-7) 0.97 10*3/uL 0.33-0.92 H EOS x10^3 (test code = 711-2) 0.33 10*3/uL 0.03-0.39 BASO x10^3 (test code = 704-7) 0.05 10*3/uL 0.01-0.07 Lab Interpretation (test code = 44771-9) Abnormal [facility] 2 [id number] 22:10:15XR CHEST 2 VW History: SOB Comparison: 04/18/2023 Technique: PA and lateral radiographs Findings: Prominence of the interstitium again noted. No pleural effusion,parenchymal consolidation, or pneumothorax is identified. The cardiac silhouette is enlarged, unchanged. Tortuous aortic silhouette. No acute osseous abnormality is present. Partially visualized cervicalfusion hardware.[facility] Hemoglobin A1C [id number] 17:02:00* Test Item Value Reference Range Interpretation Comme [facility] POCT HBA1C (test code = 4548-4) 8.3 % 4-6 A Lab Interpretation (test cod e = 76878-0) Abnormal [facility] Hemoglobin A1C [id number] 17:02:00* Test Item Value Reference Range Interpretation Comme [facility] POCT HBA1C (test code = 4548-4) 8.3 % 4-6 A Lab Interpretation (test cod e = 06853-3) Abnormal [facility] Hemoglobin A1C [id number] 17:02:00* Test Item Value Reference Range Interpretation Comme [facility] POCT HBA1C (test code = 4548-4) 8.3 % 4-6 A Lab Interpretation (test cod e = 32570-9) Abnormal [facility] METABOLIC PANEL (NA, K, CL, CO2, GLUCOSE, BUN, CREATININE, CA)2023-10-30 22:18:04* Test Item Value Reference Range Interpretation Comme [facility] NA (test code = 7183668954) 138 mmol/L 135-145 K (test code = 9451238375) 4.1 mmol/L 3.5-5.0 CL (test code = 5912444510) 103 mmol/L 98-108 CO2 TOTAL (test code = 6953504695) 26 mmol/L 23-31 AGAP (test code = 4217062898) 9 2-16 BUN (test code = 2987687066) 15 mg/dL 7-23 GLUCOSE (test code = 5129404992) 177 mg/dL 70-110 H CREATININE (test code = 2160-0) 1.11 mg/dL 0.50-1.04 H CALCIUM (test code = 4101662243) 8.9 mg/dL 8.6-10.6 eGFR (test code = 03515-2) 51.6 mL/min/1.73m2 CKD-EPI eGFR (2020). Assuming creatinine has been stable day-to-day for at least three months, the eGFR indicates Category G3a (45 - 59 mL/min/1.73 m2) Lab Interpretation (test code = 19397-5) Abnormal [facility] WITH [id number] 22:08:20* Test Item Value Reference Range Interpretation [...] g/dL 31.6-35.1 L RDW-SD (test code = 98229-9) 50.7 fL 39.0-49.9 H RDW-CV (test code = 788-0) 17.1 % 12.0-15.5 H PLT (test code = 777-3) 276 166-358 MPV (test code = 84469-6) 9.9 fL 9.5-12.9 NRBC/100 WBC (test code = 4778042919) 0.0 0.0-10.0 NRBC x10^3 (test code = 8684483532) See_Comment [Automated messa ge] The system which generated this result transmitted reference range: 10*3/?L. The reference range was not used to interpret this result as normal/abnormal. GRAN MAT (NEUT) % (test code = 770-8) 78.1 % IMM GRAN % (test code = 5873466859) 0.40 % LYMPH % (test code = 736-9) 11.3 % MONO % (test code = 5905-5) 5.7 % EOS % (test code = 713-8) 3.8 % BASO % (test code = 706-2) 0.7 % GRAN MAT x10^3(ANC) (test code = 8222611070) 7.90 10*3/uL 1.88-7.09 H IMM GRAN x10^3 (test code = 1312666078) 0.04 10*3/uL 0.00-0.06 LYMPH x10^3 (test code = 731-0) 1.14 10*3/uL 1.32-3.29 L MONO x10^3 (test code = 742-7) 0.58 10*3/uL 0.33-0.92 EOS x10^3 (test code = 711-2) 0.38 10*3/uL 0.03-0.39 BASO x10^3 (test code = 704-7) 0.07 10*3/uL 0.01-0.07 Lab Interpretation (test code = 65154-9) [facility] [id number] 21:39:16* Test Item Value Reference Range Interpretation Comme nts LACTIC ACID (test code = 6809695075) 1.21 mmol/L 0.50-2.20 Lab Interpretation (test cod e = 25757-0) Normal [facility] HEMOGLOBIN A1C [id number] 17:05:00* Test Item Value Reference Range Interpretation Comme nts POCT HBA1C (test code = 4548-4) 8.7 % 4-6 A Lab Interpretation (test cod e = 25002-5) Abnormal [facility] HEMOGLOBIN A1C [id number] 17:05:00* Test Item Value Reference Range Interpretation Comme nts POCT HBA1C (test code = 4548-4) 8.7 % 4-6 A Lab Interpretation (test cod e = 55698-2) Abnormal [facility] GLUCOSE (AUTOMATED)2023-04-19 16:42:14* Test Item Value Reference Range Interpretation Comme nts POCT GLU (test code = 7755679663) 239 mg/dL 70-110 H Lab Interpretation (test cod e = 80756-9) Abnormal [facility] GLUCOSE (AUTOMATED)2023-04-19 13:20:04* Test Item Value Reference Range Interpretation Comme nts POCT GLU (test code = 0734893924) 154 mg/dL 70-110 H Lab Interpretation (test cod e = 84674-2) [facility] (NA, K, CL, CO2, GLUCOSE, BUN, CREATININE, CA)2023-04-19 10:19:08* Test Item Value Reference Range Interpretation Comme nts NA (test code = 2023402239) 138 mmol/L 135-145 K (test code = 2300804496) 3.9 mmol/L 3.5-5.0 CL (test code = 5694284818) 99 mmol/L 98-108 CO2 TOTAL (test code = 0322750005) 29 mmol/L 23-31 AGAP (test code = 6812835875) 10 2-16 BUN (test code = 1016815891) 23 mg/dL 7-23 GLUCOSE (test code = 3519599601) 135 mg/dL 70-110 H CREATININE (test code = 7579870051) 1.42 mg/dL 0.50-1.04 H CALCIUM (test code = 4729612424) 8.5 mg/dL 8.6-10.6 L eGFR (test code = 2980109435) 36.0 mL/min/1.73m2 MAJOR (test code = MAJOR) [...] imaging tests). Lab Interpretation (test code = 44413-4) Abnormal [facility] WITH [id number] 10:05:27* Test Item Value Reference Range Interpretation [...] g/dL 31.6-35.1 L RDW-SD (test code = 66354-5) 51.1 fL 39.0-49.9 H RDW-CV (test code = 788-0) 16.8 % 12.0-15.5 H PLT (test code = 777-3) 208 See_Comment [Automated messa ge] The system which generated this result transmitted reference range: 166 - 358 10*3/?L. The reference range was not used to interpret this result as normal/abnormal. MPV (test code = 52851-5) 10.5 fL 9.5-12.9 NRBC/100 WBC (test code = 9313239742) 0.0 See_Comment [Automated [employer] ssage] The system which generated this result transmitted reference range: 0.0 - 10.0 /100 WBCs. The reference range was not used to interpret this result as normal/abnormal. NRBC x10^3 (test code = 8910904183) See_Comment [Automated [employer] ge] The system which generated this result transmitted reference range: 10*3/?L. The reference range was not used to interpret this result as normal/abnormal. GRAN MAT (NEUT) % (test code = 770-8) 68.6 % IMM GRAN % (test code = 4179651023) 0.70 % LYMPH % (test code = 736-9) 14.4 % MONO % (test code = 5905-5) 8.6 % EOS % (test code = 713-8) 7.0 % BASO % (test code = 706-2) 0.7 % GRAN MAT x10^3(ANC) (test code = 0791913227) 5.08 10*3/uL 1.88-7.09 IMM GRAN x10^3 (test code = 8708106927) 0.05 10*3/uL 0.00-0.06 LYMPH x10^3 (test code = 731-0) 1.07 10*3/uL 1.32-3.29 L MONO x10^3 (test code = 742-7) 0.64 10*3/uL 0.33-0.92 EOS x10^3 (test code = 711-2) 0.52 10*3/uL 0.03-0.39 H BASO x10^3 (test code = 704-7) 0.05 10*3/uL 0.01-0.07 Lab Interpretation (test code = 30168-0) Abnormal [facility] GLUCOSE (AUTOMATED)2023-04-19 04:45:03* Test Item Value Reference Range Interpretation Comme nts POCT GLU (test code = 5310803533) 184 mg/dL 70-110 H Lab Interpretation (test cod e = 81648-8) Abnormal [facility] GLUCOSE (AUTOMATED)2023-04-19 01:23:16* Test Item Value Reference Range Interpretation Comme nts POCT GLU (test code = 4643107934) 335 mg/dL 70-110 H Lab Interpretation (test cod e = 95390-1) Abnormal [facility] GLUCOSE (AUTOMATED)2023-04-18 21:46:30* Test Item Value Reference Range Interpretation Comme nts POCT GLU (test code = 6515554371) 159 mg/dL 70-110 H Lab Interpretation (test cod e = 18937-8) Abnormal [facility] GLUCOSE (AUTOMATED)2023-04-18 17:17:18* Test Item Value Reference Range Interpretation Comme [facility] POCT GLU (test code = 2893023555) 242 mg/dL 70-110 H Lab Interpretation (test cod e = 37321-8) Abnormal [facility] GLUCOSE (AUTOMATED)2023-04-18 13:11:03* Test Item Value Reference Range Interpretation Comme [facility] POCT GLU (test code = 3688662079) 218 mg/dL 70-110 H Lab Interpretation (test cod e = 68619-0) Abnormal [facility] METABOLIC PANEL (NA, K, CL, CO2, GLUCOSE, BUN, CREATININE, CA)2023-04-18 10:47:12* Test Item Value Reference Range Interpretation Comme nts NA (test code = 7316461048) 136 mmol/L 135-145 K (test code = 7929726909) 3.9 mmol/L 3.5-5.0 CL (test code = 0761217426) 99 mmol/L 98-108 CO2 TOTAL (test code = 6283727223) 30 mmol/L 23-31 AGAP (test code = 9680207861) 7 2-16 BUN (test code = 5669257297) 15 mg/dL 7-23 GLUCOSE (test code = 0684325075) 217 mg/dL 70-110 H CREATININE (test code = 5248397350) 1.10 mg/dL 0.50-1.04 H CALCIUM (test code = 2776004162) 8.4 mg/dL 8.6-10.6 L eGFR (test code = 9098901999) 48.3 mL/min/1.73m2 MAJOR (test code = MAJOR) [...] imaging tests). Lab Interpretation (test code = 06674-5) Abnormal [facility] WITHOUT [id number] 10:37:31* Test Item Value Reference Range Interpretation [...] result as normal/abnormal. MPV (test code = 04865-8) 10.1 fL 9.5-12.9 RDW-CV (test code = 788-0) 16.8 % 12.0-15.5 H RDW-SD (test code = 01148-5) 50.7 fL 39.0-49.9 H NRBC x10^3 (test code = 0511794362) See_Comment [Automated messa ge] The system which generated this result transmitted reference range: 10*3/?L. The reference range was not used to interpret this result as normal/abnormal. NRBC/100 WBC (test code = 8127926612) 0.0 See_Comment [Automated messa ge] The system which generated this result transmitted reference range: 0.0 - 10.0 /100 WBCs. The reference range was not used to interpret this result as normal/abnormal. IPF % (test code = 4410471635) Lab Interpretation (test code = 13457-7) Abnormal [facility] GLUCOSE (AUTOMATED)2023-04-18 01:44:20* Test Item Value Reference Range Interpretation Comme nts POCT GLU (test code = 3299887916) 240 mg/dL 70-110 H Lab Interpretation (test cod e = 10675-5) Abnormal [facility] GLUCOSE (AUTOMATED)2023-04-17 21:44:59* Test Item Value Reference Range Interpretation Comme nts POCT GLU (test code = 5086222045) 221 mg/dL 70-110 H Lab Interpretation (test cod e = 54386-9) Abnormal [facility] GLUCOSE (AUTOMATED)2023-04-17 16:47:28* Test Item Value Reference Range Interpretation Comme nts POCT GLU (test code = 0543644291) 239 mg/dL 70-110 H Lab Interpretation (test cod e = 94797-5) Abnormal [facility] GLUCOSE (AUTOMATED)2023-04-17 12:47:31* Test Item Value Reference Range Interpretation Comme nts POCT GLU (test code = 2965165995) 155 mg/dL 70-110 H Lab Interpretation (test cod e = 63485-9) Abnormal [facility] GLUCOSE (AUTOMATED)2023-04-17 01:13:06* Test Item Value Reference Range Interpretation Comme nts POCT GLU (test code = 5592448315) 214 mg/dL 70-110 H Lab Interpretation (test cod e = 44684-8) Abnormal [facility] GLUCOSE (AUTOMATED)2023-04-16 21:25:35* Test Item Value Reference Range Interpretation Comme nts POCT GLU (test code = 4768358454) 175 mg/dL 70-110 H Lab Interpretation (test cod e = 07888-2) Abnormal [facility] GLUCOSE (AUTOMATED)2023-04-16 17:39:02* Test Item Value Reference Range Interpretation Comme nts POCT GLU (test code = 3247992079) 239 mg/dL 70-110 H Lab Interpretation (test cod e = 26533-8) Abnormal [facility] GLUCOSE (AUTOMATED)2023-04-16 16:52:26* Test Item Value Reference Range Interpretation Comme nts POCT GLU (test code = 9524866481) 228 mg/dL 70-110 H Lab Interpretation (test cod e = 28253-6) Abnormal [facility] GLUCOSE (AUTOMATED)2023-04-16 12:52:50* Test Item Value Reference Range Interpretation Comme nts POCT GLU (test code = 9921671070) 104 mg/dL 70-110 Lab Interpretation (test cod e = 93969-6) Normal [facility] GLUCOSE (AUTOMATED)2023-04-16 12:50:54* Test Item Value Reference Range Interpretation Comme nts POCT GLU (test code = 2201246942) 96 mg/dL 70-110 Lab Interpretation (test cod e = 88664-2) Normal [facility] GLUCOSE (AUTOMATED)2023-04-16 01:47:08* Test Item Value Reference Range Interpretation Comme nts POCT GLU (test code = 3653125652) 223 mg/dL 70-110 H Lab Interpretation (test cod e = 35980-2) Abnormal [facility] GLUCOSE (AUTOMATED)2023-04-15 21:49:51* Test Item Value Reference Range Interpretation Comme nts POCT GLU (test code = 0372325707) 142 mg/dL 70-110 H Lab Interpretation (test cod e = 15417-4) Abnormal [facility] GLUCOSE (AUTOMATED)2023-04-15 16:45:53* Test Item Value Reference Range Interpretation Comme nts POCT GLU (test code = 7458666591) 117 mg/dL 70-110 H Lab Interpretation (test cod e = 98764-1) Abnormal [facility] GLUCOSE (AUTOMATED)2023-04-15 12:50:09* Test Item Value Reference Range Interpretation Comme nts POCT GLU (test code = 0867251315) 109 mg/dL 70-110 Lab Interpretation (test cod e = 44464-8) [facility] [id number] 10:21:21* Test Item Value Reference Range Interpretation Comme nts TROPONIN I (test code = 0216398233) 0.041 ng/mL <=0.034 H MAJOR (test code [...] of biotin. Lab Interpretation (test code = 53585-2) [facility] [id number] 10:18:40* Test Item Value Reference Range Interpretation Comme nts NT-proBNP (test code = 80581-3) 6020 pg/mL <=125 H MAJOR (test code = MAJOR) Positive: Heart Failure Likely Lab Interpretation (test code = 09495-1) [facility] 10:11:24* Test Item Value Reference Range Interpretation Comme nts MAGNESIUM (test code = 8243674856) 2.0 mg/dL 1.7-2.4 Lab Interpretation (test cod e = 56330-9) Normal [facility] METABOLIC PANEL (NA, K, CL, CO2, GLUCOSE, BUN, CREATININE, CA)2023-04-15 10:11:04* Test Item Value Reference Range Interpretation Comme nts NA (test code = 0147543483) 139 mmol/L 135-145 K (test code = 1702331070) 3.5 mmol/L 3.5-5.0 CL (test code = 7162870276) 101 mmol/L 98-108 CO2 TOTAL (test code = 1408789506) 29 mmol/L 23-31 AGAP (test code = 3541758504) 9 2-16 BUN (test code = 6262550624) 22 mg/dL 7-23 GLUCOSE (test code = 8838645989) 65 mg/dL 70-110 L CREATININE (test code = 8260504979) 1.41 mg/dL 0.50-1.04 H CALCIUM (test code = 0661420264) 8.0 mg/dL 8.6-10.6 L eGFR (test code = 4274115572) 36.3 mL/min/1.73m2 MAJOR (test code = MAJOR) [...] imaging tests). Lab Interpretation (test code = 50125-0) Abnormal [facility] WITH [id number] 09:51:20* Test Item Value Reference Range Interpretation Comme nts WBC (test code = 6690-2) 5.71 See_Comment [Automated [employer]] The system which generated this result transmitted reference range: 4.30 - 11.10 10*3/?L. The reference range was not used to interpret this result as normal/abnormal. RBC (test code = 789-8) 3.08 See_Comment L [Automated [employer]] The system which generated this result [...] g/dL 31.6-35.1 L RDW-SD (test code = 73555-0) 54.1 fL 39.0-49.9 H RDW-CV (test code = 788-0) 17.4 % 12.0-15.5 H PLT (test code = 777-3) 195 See_Comment [Automated [employer]] The system which generated this result transmitted reference range: 166 - 358 10*3/?L. The reference range was not used to interpret this result as normal/abnormal. MPV (test code = 70411-8) 10.2 fL 9.5-12.9 NRBC/100 WBC (test code = 6370265593) 0.0 See_Comment [Automated me ssage] The system which generated this result transmitted reference range: 0.0 - 10.0 /100 WBCs. The reference range was not used to interpret this result as normal/abnormal. NRBC x10^3 (test code = 4283751596) See_Comment [Automated messa ge] The system which generated this result transmitted reference range: 10*3/?L. The reference range was not used to interpret this result as normal/abnormal. GRAN MAT (NEUT) % (test code = 770-8) 64.6 % IMM GRAN % (test code = 3270920190) 0.40 % LYMPH % (test code = 736-9) 17.2 % MONO % (test code = 5905-5) 12.3 % EOS % (test code = 713-8) 5.3 % BASO % (test code = 706-2) 0.2 % GRAN MAT x10^3(ANC) (test code = 1139253021) 3.70 10*3/uL 1.88-7.09 IMM GRAN x10^3 (test code = 5155232621) 0.00-0.06 LYMPH x10^3 (test code = 731-0) 0.98 10*3/uL 1.32-3.29 L MONO x10^3 (test code = 742-7) 0.70 10*3/uL 0.33-0.92 EOS x10^3 (test code = 711-2) 0.30 10*3/uL 0.03-0.39 BASO x10^3 (test code = 704-7) 0.01-0.07 Lab Interpretation (test code = 17754-8) Abnormal [facility] GLUCOSE (AUTOMATED)2023-04-15 01:49:16* Test Item Value Reference Range Interpretation Comme nts POCT GLU (test code = 7133582883) 195 mg/dL 70-110 H Lab Interpretation (test cod e = 25805-0) Abnormal [facility] GLUCOSE (AUTOMATED)2023-04-14 21:39:23* Test Item Value Reference Range Interpretation Comme nts POCT GLU (test code = 8924122789) 159 mg/dL 70-110 H Lab Interpretation (test cod e = 12493-6) Abnormal [facility] GLUCOSE (AUTOMATED)2023-04-14 16:53:23* Test Item Value Reference Range Interpretation Comme nts POCT GLU (test code = 2206194485) 119 mg/dL 70-110 H Lab Interpretation (test cod e = 66992-4) Abnormal [facility] GLUCOSE (AUTOMATED)2023-04-14 12:58:53* Test Item Value Reference Range Interpretation Comme nts POCT GLU (test code = 4085458112) 84 mg/dL 70-110 Lab Interpretation (test cod e = 68131-7) Normal [facility] GLUCOSE (AUTOMATED)2023-04-14 02:29:08* Test Item Value Reference Range Interpretation Comme nts POCT GLU (test code = 5185356049) 204 mg/dL 70-110 H Lab Interpretation (test cod e = 46118-8) Abnormal [facility] GLUCOSE (AUTOMATED)2023-04-13 22:42:06* Test Item Value Reference Range Interpretation Comme nts POCT GLU (test code = 0355648806) 210 mg/dL 70-110 H Lab Interpretation (test cod e = 66069-3) Abnormal [facility] GLUCOSE (AUTOMATED)2023-04-13 17:07:42* Test Item Value Reference Range Interpretation Comme nts POCT GLU (test code = 3173929656) 217 mg/dL 70-110 H Lab Interpretation (test cod e = 11651-7) Abnormal [facility] GLUCOSE (AUTOMATED)2023-04-13 13:23:19* Test Item Value Reference Range Interpretation Comme nts POCT GLU (test code = 2611727863) 178 mg/dL 70-110 H Lab Interpretation (test cod e = 89332-6) [facility] [id number] 00:12:28* Test Item Value Reference Range Interpretation Comme nts TROPONIN I (test code = 8459464356) 0.065 ng/mL <=0.034 H MAJOR (test code [...] of biotin. Lab Interpretation (test code = 28849-4) [facility] [id number] 00:10:06* Test Item Value Reference Range Interpretation Comme nts NT-proBNP (test code = 14975-6) 5780 pg/mL <=125 H MAJOR (test code = MAJOR) Positive: Heart Failure Likely Lab Interpretation (test code = 45422-1) [facility] (29070)2023-04-12 21:48:02* Test Item Value Reference Range Interpretation Comme nts NA (test code = 3374141249) 141 mmol/L 135-145 K (test code = 9450325637) 4.3 mmol/L 3.5-5.0 CL (test code = 4535179104) 104 mmol/L 98-108 CO2 TOTAL (test code = 7681165621) 23 mmol/L 23-31 AGAP (test code = 4154922030) 14 2-16 BUN (test code = 5347169127) 25 mg/dL 7-23 H GLUCOSE (test code = 3730599144) 289 mg/dL 70-110 H CREATININE (test code = 8440988711) 1.30 mg/dL 0.50-1.04 H TOTAL BILI (test code = 8081337615) 0.7 mg/dL 0.1-1.1 CALCIUM (test code = 9257642270) 8.6 mg/dL 8.6-10.6 T PROTEIN (test code = 8996310807) 7.0 g/dL 6.3-8.2 ALBUMIN (test code = 7766725029) 3.6 g/dL 3.5-5.0 ALK PHOS (test code = 3879357366) 49 U/L 34-122 ALTv (test code = 1742-6) 32 U/L 5-35 AST(SGOT) (test code = 0044157931) 34 U/L 13-40 eGFR (test code = 5480685995) 39.8 mL/min/1.73m2 MAJOR (test code = MAJOR) [...] imaging tests). Lab Interpretation (test code = 35205-4) Abnormal [facility] WITH [id number] 21:34:38* Test Item Value Reference Range Interpretation [...] g/dL 31.6-35.1 L RDW-SD (test code = 14433-4) 53.4 fL 39.0-49.9 H RDW-CV (test code = 788-0) 17.4 % 12.0-15.5 H PLT (test code = 777-3) 235 See_Comment [Automated message] The system which generated this result transmitted reference range: 166 - 358 10*3/?L. The reference range was not used to interpret this result as normal/abnormal. MPV (test code = 98709-3) 10.7 fL 9.5-12.9 NRBC/100 WBC (test code = 7644615298) 0.0 See_Comment [Automated message] The system which generated this result transmitted reference range: 0.0 - 10.0 /100 WBCs. The reference range was not used to interpret this result as normal/abnormal. NRBC x10^3 (test code = 9679452964) See_Comment [Automated message] The system which generated this result transmitted reference range: 10*3/?L. The reference range was not used to interpret this result as normal/abnormal. GRAN MAT (NEUT) % (test code = 770-8) 89.1 % IMM GRAN % (test code = 1873471977) 0.50 % LYMPH % (test code = 736-9) 3.5 % MONO % (test code = 5905-5) 5.5 % EOS % (test code = 713-8) 0.9 % BASO % (test code = 706-2) 0.5 % GRAN MAT x10^3(ANC) (test code = 1394978994) 12.01 10*3/uL 1.88-7.09 H IMM GRAN x10^3 (test code = 0894035107) 0.07 10*3/uL 0.00-0.06 H LYMPH x10^3 (test code = 731-0) 0.47 10*3/uL 1.32-3.29 L MONO x10^3 (test code = 742-7) 0.74 10*3/uL 0.33-0.92 EOS x10^3 (test code = 711-2) 0.12 10*3/uL 0.03-0.39 BASO x10^3 (test code = 704-7) 0.07 10*3/uL 0.01-0.07 Lab Interpretation (test code = 86383-5) Abnormal [facility] GLUCOSE (AUTOMATED)2023-03-28 12:41:03* Test Item Value Reference Range Interpretation Comme nts POCT GLU (test code = 7250712760) 222 mg/dL 70-110 H Lab Interpretation (test cod e = 25609-9) Abnormal [facility] GLUCOSE (AUTOMATED)2023-03-28 12:41:03* Test Item Value Reference Range Interpretation Comme nts POCT GLU (test code = 2247556190) 222 mg/dL 70-110 H Lab Interpretation (test cod e = 29444-4) Abnormal [facility] GLUCOSE (AUTOMATED)2023-03-28 01:18:56* Test Item Value Reference Range Interpretation Comme nts POCT GLU (test code = 6302718068) 254 mg/dL 70-110 H Lab Interpretation (test cod e = 39645-2) Abnormal [facility] GLUCOSE (AUTOMATED)2023-03-28 01:18:56* Test Item Value Reference Range Interpretation Comme nts POCT GLU (test code = 2674937517) 254 mg/dL 70-110 H Lab Interpretation (test cod e = 28653-2) Abnormal [facility] GLUCOSE (AUTOMATED)2023-03-27 21:45:55* Test Item Value Reference Range Interpretation Comme nts POCT GLU (test code = 1982149848) 144 mg/dL 70-110 H Lab Interpretation (test cod e = 22126-2) Abnormal [facility] GLUCOSE (AUTOMATED)2023-03-27 21:45:55* Test Item Value Reference Range Interpretation Comme nts POCT GLU (test code = 1954298029) 144 mg/dL 70-110 H Lab Interpretation (test cod e = 13236-4) Abnormal [facility] GLUCOSE (AUTOMATED)2023-03-27 16:56:58* Test Item Value Reference Range Interpretation Comme nts POCT GLU (test code = 6772586004) 144 mg/dL 70-110 H Lab Interpretation (test cod e = 99345-6) [facility] 16:56:58* Test Item Value Reference Range Interpretation Comme nts POCT GLU (test code = 7236301081) 144 mg/dL 70-110 H Lab Interpretation (test cod e = 18415-9) [facility]27 15:26:26* Test Item Value Reference Range Interpretation Comme nts APTT Patient (test code = 3173-2) 70 See_Comment H [Automated messa ge] The system which generated this result transmitted reference range: 26 - 36 Seconds. The reference range was not used to interpret this result as normal/abnormal. Lab Interpretation (test code = 31395-4) [facility]normal [facility]for use with Heparin Drip)2023-03-27 15:26:26* Test Item Value Reference Range Interpretation Comme nts APTT Patient (test code = 3173-2) 70 See_Comment H [Automated messa ge] The system which generated this result transmitted reference range: 26 - 36 Seconds. The reference range was not used to interpret this result as normal/abnormal. Lab Interpretation (test code = 59802-4) Abnormal [facility] GLUCOSE (AUTOMATED)2023-03-27 13:13:38* Test Item Value Reference Range Interpretation Comme nts POCT GLU (test code = 1151894841) 251 mg/dL 70-110 H Lab Interpretation (test cod e = 31590-0) Abnormal [facility] GLUCOSE (AUTOMATED)2023-03-27 13:13:38* Test Item Value Reference Range Interpretation Comme nts POCT GLU (test code = 4836850717) 251 mg/dL 70-110 H Lab Interpretation (test cod e = 22785-1) Abnormal [facility] GLUCOSE (AUTOMATED)2023-03-27 03:00:44* Test Item Value Reference Range Interpretation Comme nts POCT GLU (test code = 1889756422) 222 mg/dL 70-110 H Lab Interpretation (test cod e = 90356-9) Abnormal [facility] GLUCOSE (AUTOMATED)2023-03-27 03:00:44* Test Item Value Reference Range Interpretation Comme nts POCT GLU (test code = 6504768431) 222 mg/dL 70-110 H Lab Interpretation (test cod e = 43297-5) [facility]for use with Heparin Drip)2023-03-26 21:49:46* Test Item Value Reference Range Interpretation Comme nts APTT Patient (test code = 3173-2) 38 See_Comment H [Automated messa ge] The system which generated this result transmitted reference range: 26 - 36 Seconds. The reference range was not used to interpret this result as normal/abnormal. Lab Interpretation (test code = 95325-8) [facility]23[facility]26 21:49:46* Test Item Value Reference Range Interpretation Comme nts APTT Patient (test code = 3173-2) 38 See_Comment H [Automated messa ge] The system which generated this result transmitted reference range: 26 - 36 Seconds. The reference range was not used to interpret this result as normal/abnormal. Lab Interpretation (test code = 03207-2) Abnormal [facility] GLUCOSE (AUTOMATED)2023-03-26 21:48:30* Test Item Value Reference Range Interpretation Comme nts POCT GLU (test code = 9232294011) 118 mg/dL 70-110 H Lab Interpretation (test cod e = 25323-7) Abnormal [facility] GLUCOSE (AUTOMATED)2023-03-26 21:48:30* Test Item Value Reference Range Interpretation Comme nts POCT GLU (test code = 5286917141) 118 mg/dL 70-110 H Lab Interpretation (test cod e = 61882-8) Abnormal [facility] GLUCOSE (AUTOMATED)2023-03-26 17:39:21* Test Item Value Reference Range Interpretation Comme nts POCT GLU (test code = 9171943604) 152 mg/dL 70-110 H Lab Interpretation (test cod e = 61411-1) Abnormal [facility] GLUCOSE (AUTOMATED)2023-03-26 17:39:21* Test Item Value Reference Range Interpretation Comme nts POCT GLU (test code = 7966311163) 152 mg/dL 70-110 H Lab Interpretation (test cod e = 32206-4) Abnormal [facility] GLUCOSE (AUTOMATED)2023-03-26 12:19:26* Test Item Value Reference Range Interpretation Comme nts POCT GLU (test code = 5080029238) 188 mg/dL 70-110 H Lab Interpretation (test cod e = 81989-0) Abnormal [facility] GLUCOSE (AUTOMATED)2023-03-26 12:19:26* Test Item Value Reference Range Interpretation Comme nts POCT GLU (test code = [id number]) 188 mg/dL 70-110 H Lab Interpretation (test cod e = 22668-8) Abnormal [facility] GLUCOSE (AUTOMATED)2023-03-26 03:12:58* Test Item Value Reference Range Interpretation Comme nts POCT GLU (test code = 9194096961) 250 mg/dL 70-110 H Lab Interpretation (test cod e = 25299-1) Abnormal [facility] GLUCOSE (AUTOMATED)2023-03-26 03:12:58* Test Item Value Reference Range Interpretation Comme nts POCT GLU (test code = 4078238915) 250 mg/dL 70-110 H Lab Interpretation (test cod e = 36824-6) [facility] [id number] 00:10:00* Test Item Value Reference Range Interpretation Comme nts APTT Patient (test code = 3173-2) 68 See_Comment H [Automated messa ge] The system which generated this result transmitted reference range: 26 - 36 Seconds. The reference range was not used to interpret this result as normal/abnormal. Lab Interpretation (test code = 97699-5) [facility] [id number] 00:10:00* Test Item Value Reference Range Interpretation Comme nts APTT Patient (test code = 3173-2) 68 See_Comment H [Automated messa ge] The system which generated this result transmitted reference range: 26 - 36 Seconds. The reference range was not used to interpret this result as normal/abnormal. Lab Interpretation (test code = 90387-6) Abnormal [facility] GLUCOSE (AUTOMATED)2023-03-25 23:08:26* Test Item Value Reference Range Interpretation Comme [facility] POCT GLU (test code = 7581582861) 216 mg/dL 70-110 H Lab Interpretation (test cod e = 54436-8) Abnormal [facility] GLUCOSE (AUTOMATED)2023-03-25 23:08:26* Test Item Value Reference Range Interpretation Comme [facility] POCT GLU (test code = 5142147479) 216 mg/dL 70-110 H Lab Interpretation (test cod e = 00700-0) Abnormal [facility] METABOLIC PANEL (NA, K, CL, CO2, GLUCOSE, BUN, CREATININE, CA)2023-03-25 20:57:17* Test Item Value Reference Range Interpretation Comme [facility] NA (test code = 4967965998) 138 mmol/L 135-145 K (test code = 5524944251) 3.9 mmol/L 3.5-5.0 CL (test code = 7700837914) 105 mmol/L 98-108 CO2 TOTAL (test code = 1926068600) 28 mmol/L 23-31 AGAP (test code = 0077516969) 5 2-16 BUN (test code = 9171558376) 27 mg/dL 7-23 H GLUCOSE (test code = 9586051039) 156 mg/dL 70-110 H CREATININE (test code = 5527700383) 1.42 mg/dL 0.50-1.04 H CALCIUM (test code = 8265555606) 7.3 mg/dL 8.6-10.6 L eGFR (test code = 3851375215) 36.0 mL/min/1.73m2 MAJOR (test code = MAJOR) [...] imaging tests). Lab Interpretation (test code = 14472-9) Abnormal [facility] METABOLIC PANEL (NA, K, CL, CO2, GLUCOSE, BUN, CREATININE, CA)2023-03-25 20:57:17* Test Item Value Reference Range Interpretation Comme nts NA (test code = 0548169638) 138 mmol/L 135-145 K (test code = 9982654764) 3.9 mmol/L 3.5-5.0 CL (test code = 1143106467) 105 mmol/L 98-108 CO2 TOTAL (test code = 5760728999) 28 mmol/L 23-31 AGAP (test code = 2826113458) 5 2-16 BUN (test code = 9403220019) 27 mg/dL 7-23 H GLUCOSE (test code = 5655152437) 156 mg/dL 70-110 H CREATININE (test code = 7667545919) 1.42 mg/dL 0.50-1.04 H CALCIUM (test code = 6142354098) 7.3 mg/dL 8.6-10.6 L eGFR (test code = 7603919246) 36.0 mL/min/1.73m2 MAJOR (test code = MAJOR) [...] imaging tests). Lab Interpretation (test code = 92011-0) Abnormal [facility] GLUCOSE (AUTOMATED)2023-03-25 20:45:01* Test Item Value Reference Range Interpretation Comme [facility] POCT GLU (test code = 1709318542) 177 mg/dL 70-110 H Lab Interpretation (test cod e = 42426-2) Abnormal [facility] GLUCOSE (AUTOMATED)2023-03-25 20:45:01* Test Item Value Reference Range Interpretation Comme [facility] POCT GLU (test code = 6681012829) 177 mg/dL 70-110 H Lab Interpretation (test cod e = 27036-0) Abnormal [facility] WITH [id number] 20:44:30* Test Item Value Reference Range Interpretation Comme [facility] WBC (test code = 6690-2) 6.05 See_Comment [Automated [employer]] The system which generated this result transmitted [...] g/dL 31.6-35.1 L RDW-SD (test code = 00953-3) 51.8 fL 39.0-49.9 H RDW-CV (test code = 788-0) 16.7 % 12.0-15.5 H PLT (test code = 777-3) 165 See_Comment L [Automated messa ge] The system which generated this result transmitted reference range: 166 - 358 10*3/?L. The reference range was not used to interpret this result as normal/abnormal. MPV (test code = 24450-8) 10.2 fL 9.5-12.9 NRBC/100 WBC (test code = 2996604922) 0.0 See_Comment [Automated me ssage] The system which generated this result transmitted reference range: 0.0 - 10.0 /100 WBCs. The reference range was not used to interpret this result as normal/abnormal. NRBC x10^3 (test code = 4159883974) See_Comment [Automated messa ge] The system which generated this result transmitted reference range: 10*3/?L. The reference range was not used to interpret this result as normal/abnormal. GRAN MAT (NEUT) % (test code = 770-8) 67.7 % IMM GRAN % (test code = 1134210297) 2.00 % LYMPH % (test code = 736-9) 14.0 % MONO % (test code = 5905-5) 9.6 % EOS % (test code = 713-8) 6.0 % BASO % (test code = 706-2) 0.7 % GRAN MAT x10^3(ANC) (test code = 3191895071) 4.10 10*3/uL 1.88-7.09 IMM GRAN x10^3 (test code = 0158190007) 0.12 10*3/uL 0.00-0.06 H LYMPH x10^3 (test code = 731-0) 0.85 10*3/uL 1.32-3.29 L MONO x10^3 (test code = 742-7) 0.58 10*3/uL 0.33-0.92 EOS x10^3 (test code = 711-2) 0.36 10*3/uL 0.03-0.39 BASO x10^3 (test code = 704-7) 0.04 10*3/uL 0.01-0.07 Lab Interpretation (test code = 76765-4) Abnormal [facility] WITH [id number] 20:44:30* Test Item Value Reference Range Interpretation [...] g/dL 31.6-35.1 L RDW-SD (test code = 67611-4) 51.8 fL 39.0-49.9 H RDW-CV (test code = 788-0) 16.7 % 12.0-15.5 H PLT (test code = 777-3) 165 See_Comment L [Automated messa ge] The system which generated this result transmitted reference range: 166 - 358 10*3/?L. The reference range was not used to interpret this result as normal/abnormal. MPV (test code = 50162-1) 10.2 fL 9.5-12.9 NRBC/100 WBC (test code = 6027678395) 0.0 See_Comment [Automated me ssage] The system which generated this result transmitted reference range: 0.0 - 10.0 /100 WBCs. The reference range was not used to interpret this result as normal/abnormal. NRBC x10^3 (test code = 5204518137) See_Comment [Automated messa ge] The system which generated this result transmitted reference range: 10*3/?L. The reference range was not used to interpret this result as normal/abnormal. GRAN MAT (NEUT) % (test code = 770-8) 67.7 % IMM GRAN % (test code = 4938856370) 2.00 % LYMPH % (test code = 736-9) 14.0 % MONO % (test code = 5905-5) 9.6 % EOS % (test code = 713-8) 6.0 % BASO % (test code = 706-2) 0.7 % GRAN MAT x10^3(ANC) (test code = 7980698700) 4.10 10*3/uL 1.88-7.09 IMM GRAN x10^3 (test code = 6070920479) 0.12 10*3/uL 0.00-0.06 H LYMPH x10^3 (test code = 731-0) 0.85 10*3/uL 1.32-3.29 L MONO x10^3 (test code = 742-7) 0.58 10*3/uL 0.33-0.92 EOS x10^3 (test code = 711-2) 0.36 10*3/uL 0.03-0.39 BASO x10^3 (test code = 704-7) 0.04 10*3/uL 0.01-0.07 Lab Interpretation (test code = 66657-1) Abnormal [facility] GLUCOSE (AUTOMATED)2023-03-25 15:53:55* Test Item Value Reference Range Interpretation Comme nts POCT GLU (test code = 3317728512) 226 mg/dL 70-110 H Notified Provide r Lab Interpretation (test code = 99600-0) Abnormal [facility] GLUCOSE (AUTOMATED)2023-03-25 15:53:55* Test Item Value Reference Range Interpretation Comme nts POCT GLU (test code = 9357106722) 226 mg/dL 70-110 H Notified Provide r Lab Interpretation (test code = 34842-6) Abnormal [facility] GLUCOSE (AUTOMATED)2023-03-25 12:36:08* Test Item Value Reference Range Interpretation Comme nts POCT GLU (test code = 2695527737) 211 mg/dL 70-110 H Notified Provide r Lab Interpretation (test code = 25278-5) Abnormal [facility] GLUCOSE (AUTOMATED)2023-03-25 12:36:08* Test Item Value Reference Range Interpretation Comme nts POCT GLU (test code = 0252384029) 211 mg/dL 70-110 H Notified Provide r Lab Interpretation (test code = 61244-3) Abnormal [facility] GLUCOSE (AUTOMATED)2023-03-25 01:07:27* Test Item Value Reference Range Interpretation Comme nts POCT GLU (test code = 3614025889) 285 mg/dL 70-110 H Lab Interpretation (test cod e = 22037-2) Abnormal [facility] GLUCOSE (AUTOMATED)2023-03-25 01:07:27* Test Item Value Reference Range Interpretation Comme nts POCT GLU (test code = 4739772559) 285 mg/dL 70-110 H Lab Interpretation (test cod e = 06881-1) [facility]23-[facility]-24 22:39:37* Test Item Value Reference Range Interpretation Comme nts APTT Patient (test code = 3173-2) 47 See_Comment H [Automated messa ge] The system which generated this result transmitted reference range: 26 - 36 Seconds. The reference range was not used to interpret this result as normal/abnormal. Lab Interpretation (test code = 51576-0) [facility] Hep[facility] Drip[facility]2023-03-24 22:39:37* Test Item Value Reference Range Interpretation Comme [facility] APTT Patient (test code = 3173-2) 47 See_Comment H [Automated messa ge] The system which generated this result transmitted reference range: 26 - 36 Seconds. The reference range was not used to interpret this result as normal/abnormal. Lab Interpretation (test code = 12549-9) Abnormal [facility] GLUCOSE (AUTOMATED)2023-03-24 22:35:11* Test Item Value Reference Range Interpretation Comme [facility] POCT GLU (test code = 6913499719) 277 mg/dL 70-110 H Lab Interpretation (test cod e = 91519-6) Abnormal [facility] GLUCOSE (AUTOMATED)2023-03-24 22:35:11* Test Item Value Reference Range Interpretation Comme [facility] POCT GLU (test code = 4593632631) 277 mg/dL 70-110 H Lab Interpretation (test cod e = 49045-8) Abnormal [facility] GLUCOSE (AUTOMATED)2023-03-24 20:08:36* Test Item Value Reference Range Interpretation Comme [facility] POCT GLU (test code = 4362490425) 326 mg/dL 70-110 H Lab Interpretation (test cod e = 75944-8) Abnormal [facility] GLUCOSE (AUTOMATED)2023-03-24 20:08:36* Test Item Value Reference Range Interpretation Comme [facility] POCT GLU (test code = 1819719088) 326 mg/dL 70-110 H Lab Interpretation (test cod e = 12557-8) [facility] + LACTIC [id number] 18:19:03* Test Item Value Reference Range Interpretation Comme nts PH (test code = 0764951896) 7.45 7.32-7.42 H PCO2 JARRET (test code = 1466965783) 38 See_Comment L [Automated messa ge] The system which generated this result transmitted reference range: 41 - 51 mmHg. The reference range was not used to interpret this result as normal/abnormal. PO2 JARRET (test code = 9234831125) 81 See_Comment HH [Automated messa ge] The system which generated this result transmitted reference range: 25 - 40 mmHg. The reference range was not used to interpret this result as normal/abnormal. HCO3 JARRET (test code = 4691862103) 26 See_Comment [Automated messa ge] The system which generated this result transmitted reference range: 24 - 28 mEq/L. The reference range was not used to interpret this result as normal/abnormal. AC VBE(BEAKER) (test code = 1674716641) 1.6 mEq/L THB JARRET (test code = 0890132865) 10.1 g/dL 12.0-16.0 L %O2HB JARRET (test code = 3978645246) 94.1 % 52.0-63.0 H %COHB JARRET (test code = 5658894789) 1.2 % 0.0-1.5 %METHB JARRET (test code = 9404280278) 0.3 % 0.4-1.5 L VOL%O2 JARRET (test code = 9911936977) 13.5 % 6.0-12.0 H NA (test code = 1512973253) 133 mmol/L 135-145 L K+ (test code = 6496440785) 3.8 mmol/L 3.5-5.0 AC CA IONZ (test code = 6980055423) 4.40 mg/dL 4.50-5.30 L GLUCOSE (test code = 8300289485) 272 mg/dL 70-110 H LACTIC ACID (test code = 1304117103) 1.85 mmol/L 0.50-2.20 Lab Interpretation (test code = 59824-0) [facility] + LACTIC [id number] 18:19:03* Test Item Value Reference Range Interpretation Comme nts PH (test code = 7333352117) 7.45 7.32-7.42 H PCO2 JARRET (test code = 9517185512) 38 See_Comment L [Automated messa ge] The system which generated this result transmitted reference range: 41 - 51 mmHg. The reference range was not used to interpret this result as normal/abnormal. PO2 JARRET (test code = 0059356998) 81 See_Comment HH [Automated messa ge] The system which generated this result transmitted reference range: 25 - 40 mmHg. The reference range was not used to interpret this result as normal/abnormal. HCO3 JARRET (test code = 5205802248) 26 See_Comment [Automated messa ge] The system which generated this result transmitted reference range: 24 - 28 mEq/L. The reference range was not used to interpret this result as normal/abnormal. AC VBE(BEAKER) (test code = 0501746206) 1.6 mEq/L THB JARRET (test code = 3328782585) 10.1 g/dL 12.0-16.0 L %O2HB JARRET (test code = 0634458414) 94.1 % 52.0-63.0 H %COHB JARRET (test code = 3640482983) 1.2 % 0.0-1.5 %METHB JARRET (test code = 3001165707) 0.3 % 0.4-1.5 L VOL%O2 JARRET (test code = 8742479045) 13.5 % 6.0-12.0 H NA (test code = 3033557908) 133 mmol/L 135-145 L K+ (test code = 2670547032) 3.8 mmol/L 3.5-5.0 AC CA IONZ (test code = 1472182625) 4.40 mg/dL 4.50-5.30 L GLUCOSE (test code = 3966921362) 272 mg/dL 70-110 H LACTIC ACID (test code = 1848653534) 1.85 mmol/L 0.50-2.20 Lab Interpretation (test code = 46597-9) Abnormal [facility] GLUCOSE (AUTOMATED)2023-03-24 17:01:07* Test Item Value Reference Range Interpretation Comme nts POCT GLU (test code = 8483300501) 301 mg/dL 70-110 H Lab Interpretation (test cod e = 73136-6) Abnormal [facility] GLUCOSE (AUTOMATED)2023-03-24 17:01:07* Test Item Value Reference Range Interpretation Comme nts POCT GLU (test code = 1219302152) 301 mg/dL 70-110 H Lab Interpretation (test cod e = 32706-8) [facility] Test Item Value Reference Range Interpretation Comme nts APTT Patient (test code = 3173-2) 31 See_Comment [Automated messa ge] The system which generated this result transmitted reference range: 26 - 36 Seconds. The reference range was not used to interpret this result as normal/abnormal. Lab Interpretation (test code = 14797-2) [facility] 15:34:35* Test Item Value Reference Range Interpretation Comme nts APTT Patient (test code = 3173-2) 31 See_Comment [Automated messa ge] The system which generated this result transmitted reference range: 26 - 36 Seconds. The reference range was not used to interpret this result as normal/abnormal. Lab Interpretation (test code = 92319-8) [facility] - ONCE [id number] 15:24:00* Test Item Value Reference Range Interpretation Comme nts ABO & RH (test code = 20) B NEGATIVE IAT (test code = 1185) Negative [facility] and Screen - ONCE [id number] 15:24:00* Test Item Value Reference Range Interpretation Comme nts ABO & RH (test code = 20) B NEGATIVE IAT (test code = 1185) Negative [facility] GLUCOSE (AUTOMATED)2023-03-24 13:42:17* Test Item Value Reference Range Interpretation Comme nts POCT GLU (test code = 8679596730) 256 mg/dL 70-110 H Lab Interpretation (test cod e = 12060-2) Abnormal [facility] GLUCOSE (AUTOMATED)2023-03-24 13:42:17* Test Item Value Reference Range Interpretation Comme nts POCT GLU (test code = 1802024386) 256 mg/dL 70-110 H Lab Interpretation (test cod e = 69260-7) Abnormal [facility] METABOLIC PANEL (NA, K, CL, CO2, GLUCOSE, BUN, CREATININE, CA)2023-03-24 12:06:10* Test Item Value Reference Range Interpretation Comme nts NA (test code = 7857506766) 136 mmol/L 135-145 K (test code = 8620386791) 4.1 mmol/L 3.5-5.0 CL (test code = 8972366053) 100 mmol/L 98-108 CO2 TOTAL (test code = 7482297138) 27 mmol/L 23-31 AGAP (test code = 5861275682) 9 2-16 BUN (test code = 7170901682) 31 mg/dL 7-23 H GLUCOSE (test code = 5032307176) 195 mg/dL 70-110 H CREATININE (test code = 6674883560) 1.46 mg/dL 0.50-1.04 H CALCIUM (test code = 7647943570) 8.0 mg/dL 8.6-10.6 L eGFR (test code = 4508373564) 34.8 mL/min/1.73m2 MAJOR (test code = MAJOR) [...] imaging tests). Lab Interpretation (test code = 01789-2) [facility] 12:06:10* Test Item Value Reference Range Interpretation Comme nts MAGNESIUM (test code = 1827565061) 2.0 mg/dL 1.7-2.4 Lab Interpretation (test cod e = 78206-0) [facility] 12:06:10* Test Item Value Reference Range Interpretation Comme nts PHOSPHORUS (test code = 7410532766) 4.3 mg/dL 2.5-5.0 Lab Interpretation (test cod e = 24826-2) Normal [facility] METABOLIC PANEL (NA, K, CL, CO2, GLUCOSE, BUN, CREATININE, CA)2023-03-24 12:06:10* Test Item Value Reference Range Interpretation Comme nts NA (test code = 1682118353) 136 mmol/L 135-145 K (test code = 0556141210) 4.1 mmol/L 3.5-5.0 CL (test code = 1207955293) 100 mmol/L 98-108 CO2 TOTAL (test code = 9418912583) 27 mmol/L 23-31 AGAP (test code = 9512591275) 9 2-16 BUN (test code = 8411939528) 31 mg/dL 7-23 H GLUCOSE (test code = 1240288097) 195 mg/dL 70-110 H CREATININE (test code = 9552259489) 1.46 mg/dL 0.50-1.04 H CALCIUM (test code = 7138962427) 8.0 mg/dL 8.6-10.6 L eGFR (test code = 4382818486) 34.8 mL/min/1.73m2 MAJOR (test code = MAJOR) [...] imaging tests). Lab Interpretation (test code = 84454-7) [facility] 12:06:10* Test Item Value Reference Range Interpretation Comme nts MAGNESIUM (test code = 4430959923) 2.0 mg/dL 1.7-2.4 Lab Interpretation (test cod e = 74756-4) [facility] 12:06:10* Test Item Value Reference Range Interpretation Comme nts PHOSPHORUS (test code = 5875265391) 4.3 mg/dL 2.5-5.0 Lab Interpretation (test cod e = 05775-3) [facility] WITH [id number] 11:06:46* Test Item Value Reference Range Interpretation Comme nts WBC (test code = 6690-2) 7.18 See_Comment [Automated [employer]] The system which generated this result transmitted reference range: 4.30 - 11.10 10*3/?L. The reference range was not used to interpret this result as normal/abnormal. RBC (test code = 789-8) 3.06 See_Comment L [Automated [employer]] The system which generated this result transmitted [...] g/dL 31.6-35.1 L RDW-SD (test code = 50969-9) 52.1 fL 39.0-49.9 H RDW-CV (test code = 788-0) 17.0 % 12.0-15.5 H PLT (test code = 777-3) 170 See_Comment [Automated messa ge] The system which generated this result transmitted reference range: 166 - 358 10*3/?L. The reference range was not used to interpret this result as normal/abnormal. MPV (test code = 32852-1) 10.3 fL 9.5-12.9 NRBC/100 WBC (test code = 9965427641) 0.0 See_Comment [Automated [employer] ssage] The system which generated this result transmitted reference range: 0.0 - 10.0 /100 WBCs. The reference range was not used to interpret this result as normal/abnormal. NRBC x10^3 (test code = 3324928754) See_Comment [Automated messa ge] The system which generated this result transmitted reference range: 10*3/?L. The reference range was not used to interpret this result as normal/abnormal. GRAN MAT (NEUT) % (test code = 770-8) 71.6 % IMM GRAN % (test code = 7309014406) 0.40 % LYMPH % (test code = 736-9) 12.7 % MONO % (test code = 5905-5) 9.5 % EOS % (test code = 713-8) 5.4 % BASO % (test code = 706-2) 0.4 % GRAN MAT x10^3(ANC) (test code = 0980571698) 5.14 10*3/uL 1.88-7.09 IMM GRAN x10^3 (test code = 7104773793) 0.03 10*3/uL 0.00-0.06 LYMPH x10^3 (test code = 731-0) 0.91 10*3/uL 1.32-3.29 L MONO x10^3 (test code = 742-7) 0.68 10*3/uL 0.33-0.92 EOS x10^3 (test code = 711-2) 0.39 10*3/uL 0.03-0.39 BASO x10^3 (test code = 704-7) 0.03 10*3/uL 0.01-0.07 Lab Interpretation (test code = 33067-8) Abnormal [facility] WITH [id number] 11:06:46* Test Item Value Reference Range Interpretation [...] g/dL 31.6-35.1 L RDW-SD (test code = 34191-4) 52.1 fL 39.0-49.9 H RDW-CV (test code = 788-0) 17.0 % 12.0-15.5 H PLT (test code = 777-3) 170 See_Comment [Automated messa ge] The system which generated this result transmitted reference range: 166 - 358 10*3/?L. The reference range was not used to interpret this result as normal/abnormal. MPV (test code = 15109-0) 10.3 fL 9.5-12.9 NRBC/100 WBC (test code = 4902811359) 0.0 See_Comment [Automated [employer] ssage] The system which generated this result transmitted reference range: 0.0 - 10.0 /100 WBCs. The reference range was not used to interpret this result as normal/abnormal. NRBC x10^3 (test code = 5018213579) See_Comment [Automated messa ge] The system which generated this result transmitted reference range: 10*3/?L. The reference range was not used to interpret this result as normal/abnormal. GRAN MAT (NEUT) % (test code = 770-8) 71.6 % IMM GRAN % (test code = 5942393423) 0.40 % LYMPH % (test code = 736-9) 12.7 % MONO % (test code = 5905-5) 9.5 % EOS % (test code = 713-8) 5.4 % BASO % (test code = 706-2) 0.4 % GRAN MAT x10^3(ANC) (test code = 8146627270) 5.14 10*3/uL 1.88-7.09 IMM GRAN x10^3 (test code = 5039005539) 0.03 10*3/uL 0.00-0.06 LYMPH x10^3 (test code = 731-0) 0.91 10*3/uL 1.32-3.29 L MONO x10^3 (test code = 742-7) 0.68 10*3/uL 0.33-0.92 EOS x10^3 (test code = 711-2) 0.39 10*3/uL 0.03-0.39 BASO x10^3 (test code = 704-7) 0.03 10*3/uL 0.01-0.07 Lab Interpretation (test code = 11733-6) Abnormal [facility] GLUCOSE (AUTOMATED)2023-03-24 01:36:11* Test Item Value Reference Range Interpretation Comme nts POCT GLU (test code = 1370195043) 299 mg/dL 70-110 H Lab Interpretation (test cod e = 68983-6) Abnormal [facility] GLUCOSE (AUTOMATED)2023-03-24 01:36:11* Test Item Value Reference Range Interpretation Comme nts POCT GLU (test code = 0053740019) 299 mg/dL 70-110 H Lab Interpretation (test cod e = 38366-8) Abnormal [facility] GLUCOSE (AUTOMATED)2023-03-23 22:47:21* Test Item Value Reference Range Interpretation Comme nts POCT GLU (test code = 3730578722) 180 mg/dL 70-110 H Lab Interpretation (test cod e = 78174-6) Abnormal [facility] GLUCOSE (AUTOMATED)2023-03-23 22:47:21* Test Item Value Reference Range Interpretation Comme nts POCT GLU (test code = 6936414508) 180 mg/dL 70-110 H Lab Interpretation (test cod e = 25099-6) Abnormal [facility] GLUCOSE (AUTOMATED)2023-03-23 18:44:18* Test Item Value Reference Range Interpretation Comme nts POCT GLU (test code = 7594332226) 247 mg/dL 70-110 H Lab Interpretation (test cod e = 76055-8) Abnormal [facility] GLUCOSE (AUTOMATED)2023-03-23 18:44:18* Test Item Value Reference Range Interpretation Comme nts POCT GLU (test code = 1345890689) 247 mg/dL 70-110 H Lab Interpretation (test cod e = 29506-4) Abnormal [facility] GLUCOSE (AUTOMATED)2023-03-23 13:05:30* Test Item Value Reference Range Interpretation Comme nts POCT GLU (test code = 6501605105) 192 mg/dL 70-110 H Lab Interpretation (test cod e = 75814-0) Abnormal [facility] GLUCOSE (AUTOMATED)2023-03-23 13:05:30* Test Item Value Reference Range Interpretation Comme nts POCT GLU (test code = 3541171385) 192 mg/dL 70-110 H Lab Interpretation (test cod e = 97429-6) Abnormal [facility] METABOLIC PANEL (NA, K, CL, CO2, GLUCOSE, BUN, CREATININE, CA)2023-03-23 11:20:33* Test Item Value Reference Range Interpretation Comme nts NA (test code = 9206396269) 135 mmol/L 135-145 K (test code = 7576181169) 4.0 mmol/L 3.5-5.0 CL (test code = 6601413147) 101 mmol/L 98-108 CO2 TOTAL (test code = 8115821686) 25 mmol/L 23-31 AGAP (test code = 3001920886) 9 2-16 BUN (test code = 8266077361) 28 mg/dL 7-23 H GLUCOSE (test code = 6132374242) 155 mg/dL 70-110 H CREATININE (test code = 3971233135) 1.50 mg/dL 0.50-1.04 H CALCIUM (test code = 3210471596) 8.2 mg/dL 8.6-10.6 L eGFR (test code = 9880315532) 33.8 mL/min/1.73m2 MAJOR (test code = MAJOR) [...] imaging tests). Lab Interpretation (test code = 03171-2) [facility]:20:33* Test Item Value Reference Range Interpretation Comme [facility] MAGNESIUM (test code = 7922581345) 1.9 mg/dL 1.7-2.4 Lab Interpretation (test cod e = 89088-0) [facility] 11:20:33* Test Item Value Reference Range Interpretation Comme nts PHOSPHORUS (test code = 8020135376) 4.2 mg/dL 2.5-5.0 Lab Interpretation (test cod e = 49592-7) Normal [facility] METABOLIC PANEL (NA, K, CL, CO2, GLUCOSE, BUN, CREATININE, CA)2023-03-23 11:20:33* Test Item Value Reference Range Interpretation Comme nts NA (test code = 3461524729) 135 mmol/L 135-145 K (test code = 4605716071) 4.0 mmol/L 3.5-5.0 CL (test code = 5936359857) 101 mmol/L 98-108 CO2 TOTAL (test code = 9991584682) 25 mmol/L 23-31 AGAP (test code = 5575022021) 9 2-16 BUN (test code = 6997578565) 28 mg/dL 7-23 H GLUCOSE (test code = 0341676832) 155 mg/dL 70-110 H CREATININE (test code = 7452474398) 1.50 mg/dL 0.50-1.04 H CALCIUM (test code = 4138050571) 8.2 mg/dL 8.6-10.6 L eGFR (test code = 6454116756) 33.8 mL/min/1.73m2 MAJOR (test code = MAJOR) [...] imaging tests). Lab Interpretation (test code = 07325-2) [facility] 11:20:33* Test Item Value Reference Range Interpretation Comme nts MAGNESIUM (test code = 1101966367) 1.9 mg/dL 1.7-2.4 Lab Interpretation (test cod e = 12707-2) [facility] 11:20:33* Test Item Value Reference Range Interpretation Comme nts PHOSPHORUS (test code = 6011829147) 4.2 mg/dL 2.5-5.0 Lab Interpretation (test cod e = 93373-1) [facility] RFNQ1888-11-99 11:06:32* Test Item Value Reference Range Interpretation Comme nts WBC (test code = 6690-2) 7.86 See_Comment [Automated [employer]] The system which generated this result transmitted reference range: 4.30 - 11.10 10*3/?L. The reference range was not used to interpret this result as normal/abnormal. RBC (test code = 789-8) 3.35 See_Comment L [Automated [employer]] The system which generated this result transmitted [...] g/dL 31.6-35.1 L RDW-SD (test code = 00543-0) 53.4 fL 39.0-49.9 H RDW-CV (test code = 788-0) 17.3 % 12.0-15.5 H PLT (test code = 777-3) 190 See_Comment [Automated messa ge] The system which generated this result transmitted reference range: 166 - 358 10*3/?L. The reference range was not used to interpret this result as normal/abnormal. MPV (test code = 87742-0) 10.3 fL 9.5-12.9 NRBC/100 WBC (test code = 1597192032) 0.0 See_Comment [Automated me ssage] The system which generated this result transmitted reference range: 0.0 - 10.0 /100 WBCs. The reference range was not used to interpret this result as normal/abnormal. NRBC x10^3 (test code = 1408606269) See_Comment [Automated messa ge] The system which generated this result transmitted reference range: 10*3/?L. The reference range was not used to interpret this result as normal/abnormal. GRAN MAT (NEUT) % (test code = 770-8) 74.7 % IMM GRAN % (test code = 9664706888) 0.40 % LYMPH % (test code = 736-9) 10.7 % MONO % (test code = 5905-5) 8.7 % EOS % (test code = 713-8) 5.1 % BASO % (test code = 706-2) 0.4 % GRAN MAT x10^3(ANC) (test code = 6568594202) 5.88 10*3/uL 1.88-7.09 IMM GRAN x10^3 (test code = 2987961178) 0.03 10*3/uL 0.00-0.06 LYMPH x10^3 (test code = 731-0) 0.84 10*3/uL 1.32-3.29 L MONO x10^3 (test code = 742-7) 0.68 10*3/uL 0.33-0.92 EOS x10^3 (test code = 711-2) 0.40 10*3/uL 0.03-0.39 H BASO x10^3 (test code = 704-7) 0.03 10*3/uL 0.01-0.07 Lab Interpretation (test code = 16760-8) Abnormal [facility] WITH [id number] 11:06:32* Test Item Value Reference Range Interpretation [...] g/dL 31.6-35.1 L RDW-SD (test code = 66911-9) 53.4 fL 39.0-49.9 H RDW-CV (test code = 788-0) 17.3 % 12.0-15.5 H PLT (test code = 777-3) 190 See_Comment [Automated messa ge] The system which generated this result transmitted reference range: 166 - 358 10*3/?L. The reference range was not used to interpret this result as normal/abnormal. MPV (test code = 97340-8) 10.3 fL 9.5-12.9 NRBC/100 WBC (test code = 0789184497) 0.0 See_Comment [Automated [employer] ssage] The system which generated this result transmitted reference range: 0.0 - 10.0 /100 WBCs. The reference range was not used to interpret this result as normal/abnormal. NRBC x10^3 (test code = 8931639859) See_Comment [Automated messa ge] The system which generated this result transmitted reference range: 10*3/?L. The reference range was not used to interpret this result as normal/abnormal. GRAN MAT (NEUT) % (test code = 770-8) 74.7 % IMM GRAN % (test code = 6212099035) 0.40 % LYMPH % (test code = 736-9) 10.7 % MONO % (test code = 5905-5) 8.7 % EOS % (test code = 713-8) 5.1 % BASO % (test code = 706-2) 0.4 % GRAN MAT x10^3(ANC) (test code = 9915383221) 5.88 10*3/uL 1.88-7.09 IMM GRAN x10^3 (test code = 9529707105) 0.03 10*3/uL 0.00-0.06 LYMPH x10^3 (test code = 731-0) 0.84 10*3/uL 1.32-3.29 L MONO x10^3 (test code = 742-7) 0.68 10*3/uL 0.33-0.92 EOS x10^3 (test code = 711-2) 0.40 10*3/uL 0.03-0.39 H BASO x10^3 (test code = 704-7) 0.03 10*3/uL 0.01-0.07 Lab Interpretation (test code = 59352-1) Abnormal [facility] GLUCOSE (AUTOMATED)2023-03-23 01:41:44* Test Item Value Reference Range Interpretation Comme nts POCT GLU (test code = 3867526246) 220 mg/dL 70-110 H Lab Interpretation (test cod e = 81391-5) Abnormal [facility] GLUCOSE (AUTOMATED)2023-03-23 01:41:44* Test Item Value Reference Range Interpretation Comme nts POCT GLU (test code = 7720143279) 220 mg/dL 70-110 H Lab Interpretation (test cod e = 17379-2) Abnormal [facility] GLUCOSE (AUTOMATED)2023-03-22 22:39:32* Test Item Value Reference Range Interpretation Comme nts POCT GLU (test code = 0763790397) 258 mg/dL 70-110 H Notified Provide r Lab Interpretation (test code = 09296-5) [facility] 22:39:32* Test Item Value Reference Range Interpretation Comme nts POCT GLU (test code = 8571218113) 258 mg/dL 70-110 H Notified Provide r Lab Interpretation (test code = 17907-4) [facility]2023-03-22 17:10:13* Test Item Value Reference Range Interpretation Comme nts POCT GLU (test code = 8438453874) 184 mg/dL 70-110 H Lab Interpretation (test cod e = 51457-2) [facility]23-[facility]-22 17:10:13* Test Item Value Reference Range Interpretation Comme nts POCT GLU (test code = 1222146503) 184 mg/dL 70-110 H Lab Interpretation (test cod e = 93852-2) Abnormal [facility] GLUCOSE (AUTOMATED)2023-03-22 17:10:13* Test Item Value Reference Range Interpretation Comme nts POCT GLU (test code = 7176027561) 184 mg/dL 70-110 H Lab Interpretation (test cod e = 19553-4) [facility]2023-03-22 13:06:14* Test Item Value Reference Range Interpretation Comme nts POCT GLU (test code = 1547357267) 167 mg/dL 70-110 H Lab Interpretation (test cod e = 20770-3) [facility]23-[facility]-22 13:06:14* Test Item Value Reference Range Interpretation Comme nts POCT GLU (test code = 1173189213) 167 mg/dL 70-110 H Lab Interpretation (test cod e = 94919-9) [facility]2023-03-22 13:06:14* Test Item Value Reference Range Interpretation Comme nts POCT GLU (test code = 4542198329) 167 mg/dL 70-110 H Lab Interpretation (test cod e = 04898-9) Abnormal [facility] GLUCOSE (AUTOMATED)2023-03-22 10:45:15* Test Item Value Reference Range Interpretation Comme nts POCT GLU (test code = 6669013063) 169 mg/dL 70-110 H Lab Interpretation (test cod e = 22225-5) Abnormal [facility] GLUCOSE (AUTOMATED)2023-03-22 10:45:15* Test Item Value Reference Range Interpretation Comme nts POCT GLU (test code = 8958111176) 169 mg/dL 70-110 H Lab Interpretation (test cod e = 61633-7) Abnormal [facility] GLUCOSE (AUTOMATED)2023-03-22 10:45:15* Test Item Value Reference Range Interpretation Comme nts POCT GLU (test code = 2421107602) 169 mg/dL 70-110 H Lab Interpretation (test cod e = 86356-6) Abnormal [facility] Otgrs8380-62-91 10:15:51* Test Item Value Reference Range Interpretation Comme nts PHOSPHORUS (test code = 0691776119) 4.9 mg/dL 2.5-5.0 Lab Interpretation (test cod e = 43159-7) Normal [facility] Enwty9734-73-84 10:15:51* Test Item Value Reference Range Interpretation Comme nts PHOSPHORUS (test code = 7865564439) 4.9 mg/dL 2.5-5.0 Lab Interpretation (test cod e = 83971-3) Normal [facility] Izapv7950-11-52 10:15:51* Test Item Value Reference Range Interpretation Comme nts PHOSPHORUS (test code = 7120399817) 4.9 mg/dL 2.5-5.0 Lab Interpretation (test cod e = 89119-8) Normal [facility] Metabolic Panel (NA, K, CL, CO2, GLUCOSE, BUN, CREATININE, CA)2023-03-22 10:15:50* Test Item Value Reference Range Interpretation Comme nts NA (test code = 6565092045) 138 mmol/L 135-145 K (test code = 0904044786) 5.0 mmol/L 3.5-5.0 CL (test code = 6118858405) 102 mmol/L 98-108 CO2 TOTAL (test code = 4678098449) 27 mmol/L 23-31 AGAP (test code = 4010652377) 9 2-16 BUN (test code = 5963053588) 32 mg/dL 7-23 H GLUCOSE (test code = 4216468314) 174 mg/dL 70-110 H CREATININE (test code = 8395115802) 1.40 mg/dL 0.50-1.04 H CALCIUM (test code = 0578700554) 8.2 mg/dL 8.6-10.6 L eGFR (test code = 4266985357) 36.6 mL/min/1.73m2 MAJOR (test code = MAJOR) [...] imaging tests). Lab Interpretation (test code = 99151-9) [facility] Lstlc1487-56-60 10:15:50* Test Item Value Reference Range Interpretation Comme nts MAGNESIUM (test code = 5506586563) 2.1 mg/dL 1.7-2.4 Lab Interpretation (test cod e = 28517-8) Normal [facility] Metabolic Panel (NA, K, CL, CO2, GLUCOSE, BUN, CREATININE, CA)2023-03-22 10:15:50* Test Item Value Reference Range Interpretation Comme nts NA (test code = 1912394348) 138 mmol/L 135-145 K (test code = 8059178609) 5.0 mmol/L 3.5-5.0 CL (test code = 1480279069) 102 mmol/L 98-108 CO2 TOTAL (test code = 8485215885) 27 mmol/L 23-31 AGAP (test code = 7779102509) 9 2-16 BUN (test code = 7268546462) 32 mg/dL 7-23 H GLUCOSE (test code = 6721095986) 174 mg/dL 70-110 H CREATININE (test code = 7842809898) 1.40 mg/dL 0.50-1.04 H CALCIUM (test code = 6777909098) 8.2 mg/dL 8.6-10.6 L eGFR (test code = 8346526263) 36.6 mL/min/1.73m2 MAJOR (test code = MAJOR) [...] imaging tests). Lab Interpretation (test code = 37537-7) [facility] Udasl1860-55-34 10:15:50* Test Item Value Reference Range Interpretation Comme nts MAGNESIUM (test code = 2048564266) 2.1 mg/dL 1.7-2.4 Lab Interpretation (test cod e = 55865-8) [facility] (NA, K, CL, CO2, GLUCOSE, BUN, CREATININE, CA)2023-03-22 10:15:50* Test Item Value Reference Range Interpretation Comme nts NA (test code = 0747597782) 138 mmol/L 135-145 K (test code = 2505880741) 5.0 mmol/L 3.5-5.0 CL (test code = 2864903989) 102 mmol/L 98-108 CO2 TOTAL (test code = 0843707675) 27 mmol/L 23-31 AGAP (test code = 4832644589) 9 2-16 BUN (test code = 3050225884) 32 mg/dL 7-23 H GLUCOSE (test code = 6467501089) 174 mg/dL 70-110 H CREATININE (test code = 7814281307) 1.40 mg/dL 0.50-1.04 H CALCIUM (test code = 3116824227) 8.2 mg/dL 8.6-10.6 L eGFR (test code = 7850007482) 36.6 mL/min/1.73m2 MAJOR (test code = MAJOR) [...] imaging tests). Lab Interpretation (test code = 28729-2) [facility] Kayve7874-39-57 10:15:50* Test Item Value Reference Range Interpretation Comme nts MAGNESIUM (test code = 6866854028) 2.1 mg/dL 1.7-2.4 Lab Interpretation (test cod e = 73054-5) Normal [facility] with Hngkhojaljqq5745-18-84 09:47:50* Test Item Value Reference Range Interpretation Comme nts WBC (test code = 6690-2) 10.42 See_Comment [Automated [employer]] The system which generated this result transmitted reference range: 4.30 - 11.10 10*3/?L. The reference range was not used to interpret this result as normal/abnormal. RBC (test code = 789-8) 3.21 See_Comment L [Automated [employer]] The system which generated this result transmitted [...] g/dL 31.6-35.1 L RDW-SD (test code = 82505-0) 51.5 fL 39.0-49.9 H RDW-CV (test code = 788-0) 16.7 % 12.0-15.5 H PLT (test code = 777-3) 184 See_Comment [Automated [employer] ge] The system which generated this result transmitted reference range: 166 - 358 10*3/?L. The reference range was not used to interpret this result as normal/abnormal. MPV (test code = 83945-2) 10.1 fL 9.5-12.9 NRBC/100 WBC (test code = 9387106796) 0.0 See_Comment [Automated [employer] ssage] The system which generated this result transmitted reference range: 0.0 - 10.0 /100 WBCs. The reference range was not used to interpret this result as normal/abnormal. NRBC x10^3 (test code = 2917980517) See_Comment [Automated [employer] ge] The system which generated this result transmitted reference range: 10*3/?L. The reference range was not used to interpret this result as normal/abnormal. GRAN MAT (NEUT) % (test code = 770-8) 84.9 % IMM GRAN % (test code = 3910530899) 0.50 % LYMPH % (test code = 736-9) 6.1 % MONO % (test code = 5905-5) 6.1 % EOS % (test code = 713-8) 2.0 % BASO % (test code = 706-2) 0.4 % GRAN MAT x10^3(ANC) (test code = 3403382708) 8.84 10*3/uL 1.88-7.09 H IMM GRAN x10^3 (test code = 4874030390) 0.05 10*3/uL 0.00-0.06 LYMPH x10^3 (test code = 731-0) 0.64 10*3/uL 1.32-3.29 L MONO x10^3 (test code = 742-7) 0.64 10*3/uL 0.33-0.92 EOS x10^3 (test code = 711-2) 0.21 10*3/uL 0.03-0.39 BASO x10^3 (test code = 704-7) 0.04 10*3/uL 0.01-0.07 Lab Interpretation (test code = 84119-2) Abnormal [facility] with Ldcmryjyduco2891-75-48 09:47:50* Test Item Value Reference Range Interpretation [...] g/dL 31.6-35.1 L RDW-SD (test code = 01156-8) 51.5 fL 39.0-49.9 H RDW-CV (test code = 788-0) 16.7 % 12.0-15.5 H PLT (test code = 777-3) 184 See_Comment [Automated messa ge] The system which generated this result transmitted reference range: 166 - 358 10*3/?L. The reference range was not used to interpret this result as normal/abnormal. MPV (test code = 37654-0) 10.1 fL 9.5-12.9 NRBC/100 WBC (test code = 5708505422) 0.0 See_Comment [Automated [employer] ssage] The system which generated this result transmitted reference range: 0.0 - 10.0 /100 WBCs. The reference range was not used to interpret this result as normal/abnormal. NRBC x10^3 (test code = 1744135393) See_Comment [Automated messa ge] The system which generated this result transmitted reference range: 10*3/?L. The reference range was not used to interpret this result as normal/abnormal. GRAN MAT (NEUT) % (test code = 770-8) 84.9 % IMM GRAN % (test code = 2158831373) 0.50 % LYMPH % (test code = 736-9) 6.1 % MONO % (test code = 5905-5) 6.1 % EOS % (test code = 713-8) 2.0 % BASO % (test code = 706-2) 0.4 % GRAN MAT x10^3(ANC) (test code = 6050401762) 8.84 10*3/uL 1.88-7.09 H IMM GRAN x10^3 (test code = 7399837626) 0.05 10*3/uL 0.00-0.06 LYMPH x10^3 (test code = 731-0) 0.64 10*3/uL 1.32-3.29 L MONO x10^3 (test code = 742-7) 0.64 10*3/uL 0.33-0.92 EOS x10^3 (test code = 711-2) 0.21 10*3/uL 0.03-0.39 BASO x10^3 (test code = 704-7) 0.04 10*3/uL 0.01-0.07 Lab Interpretation (test code = 90390-6) Abnormal [facility] with Noplvblpocdk3909-27-33 09:47:50* Test Item Value Reference Range Interpretation [...] g/dL 31.6-35.1 L RDW-SD (test code = 32040-4) 51.5 fL 39.0-49.9 H RDW-CV (test code = 788-0) 16.7 % 12.0-15.5 H PLT (test code = 777-3) 184 See_Comment [Automated messa ge] The system which generated this result transmitted reference range: 166 - 358 10*3/?L. The reference range was not used to interpret this result as normal/abnormal. MPV (test code = 17364-4) 10.1 fL 9.5-12.9 NRBC/100 WBC (test code = 9310969474) 0.0 See_Comment [Automated [employer] ssage] The system which generated this result transmitted reference range: 0.0 - 10.0 /100 WBCs. The reference range was not used to interpret this result as normal/abnormal. NRBC x10^3 (test code = 4181710818) See_Comment [Automated messa ge] The system which generated this result transmitted reference range: 10*3/?L. The reference range was not used to interpret this result as normal/abnormal. GRAN MAT (NEUT) % (test code = 770-8) 84.9 % IMM GRAN % (test code = 4740691735) 0.50 % LYMPH % (test code = 736-9) 6.1 % MONO % (test code = 5905-5) 6.1 % EOS % (test code = 713-8) 2.0 % BASO % (test code = 706-2) 0.4 % GRAN MAT x10^3(ANC) (test code = 8543184104) 8.84 10*3/uL 1.88-7.09 H IMM GRAN x10^3 (test code = 4733623776) 0.05 10*3/uL 0.00-0.06 LYMPH x10^3 (test code = 731-0) 0.64 10*3/uL 1.32-3.29 L MONO x10^3 (test code = 742-7) 0.64 10*3/uL 0.33-0.92 EOS x10^3 (test code = 711-2) 0.21 10*3/uL 0.03-0.39 BASO x10^3 (test code = 704-7) 0.04 10*3/uL 0.01-0.07 Lab Interpretation (test code = 19224-3) Abnormal [facility] GLUCOSE (AUTOMATED)2023-03-22 09:30:13* Test Item Value Reference Range Interpretation Comme nts POCT GLU (test code = 9749333621) 183 mg/dL 70-110 H Lab Interpretation (test cod e = 96951-2) Abnormal [facility] GLUCOSE (AUTOMATED)2023-03-22 09:30:13* Test Item Value Reference Range Interpretation Comme nts POCT GLU (test code = 4819156404) 183 mg/dL 70-110 H Lab Interpretation (test cod e = 42954-8) Abnormal [facility] GLUCOSE (AUTOMATED)2023-03-22 09:30:13* Test Item Value Reference Range Interpretation Comme nts POCT GLU (test code = 3252985398) 183 mg/dL 70-110 H Lab Interpretation (test cod e = 05381-3) [facility] L[facility]IC EESG4653-06-68 07:16:53* Test Item Value Reference Range Interpretation Comme nts PH (test code = 9790782242) 7.30 7.32-7.42 L PCO2 JARRET (test code = 0560447347) 50 See_Comment [Automated messa ge] The system which generated this result transmitted reference range: 41 - 51 mmHg. The reference range was not used to interpret this result as normal/abnormal. PO2 JARRET (test code = 3149829452) 39 See_Comment [Automated messa ge] The system which generated this result transmitted reference range: 25 - 40 mmHg. The reference range was not used to interpret this result as normal/abnormal. HCO3 JARRET (test code = 2951641098) 24 See_Comment [Automated messa ge] The system which generated this result transmitted reference range: 24 - 28 mEq/L. The reference range was not used to interpret this result as normal/abnormal. AC VBE(BEAKER) (test code = 0167419115) -2.3 mEq/L THB JARRET (test code = 6886710445) 9.6 g/dL 12.0-16.0 L %O2HB JARRET (test code = 1143024903) 69.7 % 52.0-63.0 H %COHB JARRET (test code = 2785780276) 1.2 % 0.0-1.5 %METHB JARRET (test code = 8622626968) 0.3 % 0.4-1.5 L VOL%O2 JARRET (test code = 5963825826) 9.4 % 6.0-12.0 NA (test code = 2800984869) 126 mmol/L 135-145 L K+ (test code = 4715361732) 5.0 mmol/L 3.5-5.0 AC CA IONZ (test code = 0999751914) 4.40 mg/dL 4.50-5.30 L GLUCOSE (test code = 9493216009) 195 mg/dL 70-110 H LACTIC ACID (test code = 8120882308) 1.96 mmol/L 0.50-2.20 Lab Interpretation (test code = 71033-9) [facility] L[facility] WSWX4905-89-04 07:16:53* Test Item Value Reference Range Interpretation Comme nts PH (test code = 0160599489) 7.30 7.32-7.42 L PCO2 JARRET (test code = 6741856632) 50 See_Comment [Automated messa ge] The system which generated this result transmitted reference range: 41 - 51 mmHg. The reference range was not used to interpret this result as normal/abnormal. PO2 JARRET (test code = 2453332996) 39 See_Comment [Automated messa ge] The system which generated this result transmitted reference range: 25 - 40 mmHg. The reference range was not used to interpret this result as normal/abnormal. HCO3 JARRET (test code = 6692375393) 24 See_Comment [Automated messa ge] The system which generated this result transmitted reference range: 24 - 28 mEq/L. The reference range was not used to interpret this result as normal/abnormal. AC VBE(BEAKER) (test code = 2042732566) -2.3 mEq/L THB JARRET (test code = 4497321286) 9.6 g/dL 12.0-16.0 L %O2HB JARRET (test code = 1037377435) 69.7 % 52.0-63.0 H %COHB JARRET (test code = 7453867240) 1.2 % 0.0-1.5 %METHB JARRET (test code = 6967407484) 0.3 % 0.4-1.5 L VOL%O2 JARRET (test code = 1173463300) 9.4 % 6.0-12.0 NA (test code = 9251135782) 126 mmol/L 135-145 L K+ (test code = 5843670958) 5.0 mmol/L 3.5-5.0 AC CA IONZ (test code = 7543950801) 4.40 mg/dL 4.50-5.30 L GLUCOSE (test code = 9430658460) 195 mg/dL 70-110 H LACTIC ACID (test code = 2477799266) 1.96 mmol/L 0.50-2.20 Lab Interpretation (test code = 57926-3) [facility] LACTIC [id number] 07:16:53* Test Item Value Reference Range Interpretation Comme nts PH (test code = 3290895023) 7.30 7.32-7.42 L PCO2 JARRET (test code = 9419362555) 50 See_Comment [Automated messa ge] The system which generated this result transmitted reference range: 41 - 51 mmHg. The reference range was not used to interpret this result as normal/abnormal. PO2 JARRET (test code = 7362043235) 39 See_Comment [Automated messa ge] The system which generated this result transmitted reference range: 25 - 40 mmHg. The reference range was not used to interpret this result as normal/abnormal. HCO3 JARRET (test code = 2408217655) 24 See_Comment [Automated messa ge] The system which generated this result transmitted reference range: 24 - 28 mEq/L. The reference range was not used to interpret this result as normal/abnormal. AC VBE(BEAKER) (test code = 2106173587) -2.3 mEq/L THB JARRET (test code = 8787469918) 9.6 g/dL 12.0-16.0 L %O2HB JARRET (test code = 5580359241) 69.7 % 52.0-63.0 H %COHB JARRET (test code = 1765506163) 1.2 % 0.0-1.5 %METHB JARRET (test code = 9551600185) 0.3 % 0.4-1.5 L VOL%O2 JARRET (test code = 3257356149) 9.4 % 6.0-12.0 NA (test code = 2139389618) 126 mmol/L 135-145 L K+ (test code = 5266088420) 5.0 mmol/L 3.5-5.0 AC CA IONZ (test code = 3086306366) 4.40 mg/dL 4.50-5.30 L GLUCOSE (test code = 0200679672) 195 mg/dL 70-110 H LACTIC ACID (test code = 4933601451) 1.96 mmol/L 0.50-2.20 Lab Interpretation (test code = 90167-8) Abnormal [facility] GLUCOSE (AUTOMATED)2023-03-22 05:09:14* Test Item Value Reference Range Interpretation Comme nts POCT GLU (test code = 6566006995) 244 mg/dL 70-110 H Lab Interpretation (test cod e = 59810-0) Abnormal [facility] GLUCOSE (AUTOMATED)2023-03-22 05:09:14* Test Item Value Reference Range Interpretation Comme nts POCT GLU (test code = 4860979309) 244 mg/dL 70-110 H Lab Interpretation (test cod e = 03565-3) Abnormal [facility] GLUCOSE (AUTOMATED)2023-03-22 05:09:14* Test Item Value Reference Range Interpretation Comme nts POCT GLU (test code = 7793698311) 244 mg/dL 70-110 H Lab Interpretation (test cod e = 67098-0) [facility] L[facility]IC [id number] 03:14:53* Test Item Value Reference Range Interpretation Comme nts PH (test code = 5259955939) 7.32 7.32-7.42 PCO2 JARRET (test code = 4598529189) 55 See_Comment H [Automated messa ge] The system which generated this result transmitted reference range: 41 - 51 mmHg. The reference range was not used to interpret this result as normal/abnormal. PO2 JARRET (test code = 6209558342) 48 See_Comment H [Automated messa ge] The system which generated this result transmitted reference range: 25 - 40 mmHg. The reference range was not used to interpret this result as normal/abnormal. HCO3 JARRET (test code = 7406206875) 27 See_Comment [Automated messa ge] The system which generated this result transmitted reference range: 24 - 28 mEq/L. The reference range was not used to interpret this result as normal/abnormal. AC VBE(BEAKER) (test code = 6633701716) 0.6 mEq/L THB JARRET (test code = 2656370336) 10.9 g/dL 12.0-16.0 L %O2HB JARRET (test code = 5624261204) 80.9 % 52.0-63.0 H %COHB JARRET (test code = 6625326209) 1.4 % 0.0-1.5 %METHB JARRET (test code = 8670495951) 0.3 % 0.4-1.5 L VOL%O2 JARRET (test code = 5223317449) 12.4 % 6.0-12.0 H NA (test code = 6307556083) 131 mmol/L 135-145 L K+ (test code = 6476941441) 4.8 mmol/L 3.5-5.0 AC CA IONZ (test code = 6008647009) 4.40 mg/dL 4.50-5.30 L GLUCOSE (test code = 6653814860) 257 mg/dL 70-110 H LACTIC ACID (test code = 3223637610) 2.26 mmol/L 0.50-2.20 H Lab Interpretation (test code = 83724-5) [facility] [id number] 03:14:53* Test Item Value Reference Range Interpretation Comme nts PH (test code = 4029909747) 7.32 7.32-7.42 PCO2 JARRET (test code = 2521613427) 55 See_Comment H [Automated messa ge] The system which generated this result transmitted reference range: 41 - 51 mmHg. The reference range was not used to interpret this result as normal/abnormal. PO2 JARRET (test code = 6800205112) 48 See_Comment H [Automated messa ge] The system which generated this result transmitted reference range: 25 - 40 mmHg. The reference range was not used to interpret this result as normal/abnormal. HCO3 JARRET (test code = 3455344907) 27 See_Comment [Automated messa ge] The system which generated this result transmitted reference range: 24 - 28 mEq/L. The reference range was not used to interpret this result as normal/abnormal. AC VBE(BEAKER) (test code = 2284687415) 0.6 mEq/L THB JARRET (test code = 8132783873) 10.9 g/dL 12.0-16.0 L %O2HB JARRET (test code = 4070116556) 80.9 % 52.0-63.0 H %COHB JARRET (test code = 7377874392) 1.4 % 0.0-1.5 %METHB JARRET (test code = 8106997836) 0.3 % 0.4-1.5 L VOL%O2 JARRET (test code = 2412981802) 12.4 % 6.0-12.0 H NA (test code = 0954209375) 131 mmol/L 135-145 L K+ (test code = 8596532432) 4.8 mmol/L 3.5-5.0 AC CA IONZ (test code = 1365856507) 4.40 mg/dL 4.50-5.30 L GLUCOSE (test code = 7746397145) 257 mg/dL 70-110 H LACTIC ACID (test code = 4914091813) 2.26 mmol/L 0.50-2.20 H Lab Interpretation (test code = 93030-6) [facility] LACTIC [id number] 03:14:53* Test Item Value Reference Range Interpretation Comme nts PH (test code = 3351292142) 7.32 7.32-7.42 PCO2 JARRET (test code = 0489263191) 55 See_Comment H [Automated messa ge] The system which generated this result transmitted reference range: 41 - 51 mmHg. The reference range was not used to interpret this result as normal/abnormal. PO2 JARRET (test code = 6881180832) 48 See_Comment H [Automated messa ge] The system which generated this result transmitted reference range: 25 - 40 mmHg. The reference range was not used to interpret this result as normal/abnormal. HCO3 JARRET (test code = 6547759670) 27 See_Comment [Automated messa ge] The system which generated this result transmitted reference range: 24 - 28 mEq/L. The reference range was not used to interpret this result as normal/abnormal. AC VBE(BEAKER) (test code = 7881739105) 0.6 mEq/L THB JARRET (test code = 2416785992) 10.9 g/dL 12.0-16.0 L %O2HB JARRET (test code = 6375500775) 80.9 % 52.0-63.0 H %COHB JARRET (test code = 1067745258) 1.4 % 0.0-1.5 %METHB JARRET (test code = 0759897075) 0.3 % 0.4-1.5 L VOL%O2 JARRET (test code = 8512276706) 12.4 % 6.0-12.0 H NA (test code = 4866103794) 131 mmol/L 135-145 L K+ (test code = 5751371563) 4.8 mmol/L 3.5-5.0 AC CA IONZ (test code = 3242109990) 4.40 mg/dL 4.50-5.30 L GLUCOSE (test code = 6732686934) 257 mg/dL 70-110 H LACTIC ACID (test code = 9969622089) 2.26 mmol/L 0.50-2.20 H Lab Interpretation (test code = 64723-0) [facility] + Lactic [id number] 00:38:05* Test Item Value Reference Range Interpretation Comme nts PH (test code = 2) 7.34 7.35-7.45 L PCO2 (test code = 8753621498) 52 See_Comment H [Automated messa ge] The system which generated this result transmitted reference range: 35 - 45 mmHg. The reference range was not used to interpret this result as normal/abnormal. PO2 (test code = 1077696587) 131 See_Comment H [Automated messa ge] The system which generated this result transmitted reference range: 80 - 100 mmHg. The reference range was not used to interpret this result as normal/abnormal. HCO3 (test code = 6420032515) 27 See_Comment H [Automated messa ge] The system which generated this result transmitted reference range: 22 - 26 mEq/L. The reference range was not used to interpret this result as normal/abnormal. BE (test code = 9280571156) 0.8 See_Comment [Automated messa ge] The system which generated this result transmitted reference range: -3.0 - 3.0 mEq/L. The reference range was not used to interpret this result as normal/abnormal. THB (test code = 1045014116) 13.3 g/dL 12.0-16.0 %O2HB (test code = 1019492595) 97.3 % 94.0-99.0 %COHB ART (test code = 3416086221) 0.4 % 0.0-1.5 %METHB ART (test code = 5272753537) 0.3 % 0.4-1.5 L VOL%O2 ART (test code = 9517312375) 18.4 % 15.0-23.0 NA (test code = 9292512704) 135 mmol/L 135-145 K+ (test code = 9247765193) 4.9 mmol/L 3.5-5.0 AC CA IONZ (test code = 0610827813) 4.50 mg/dL 4.50-5.30 GLUCOSE (test code = 2083406198) 285 mg/dL 70-110 H LACTIC ACID (test code = 4681961116) 1.77 mmol/L 0.50-2.20 QUES Lab Interpretation (test code = 43868-4) [facility] + Lactic [id number] 00:38:05* Test Item Value Reference Range Interpretation Comme nts PH (test code = 2) 7.34 7.35-7.45 L PCO2 (test code = 0684158435) 52 See_Comment H [Automated messa ge] The system which generated this result transmitted reference range: 35 - 45 mmHg. The reference range was not used to interpret this result as normal/abnormal. PO2 (test code = 9291790064) 131 See_Comment H [Automated messa ge] The system which generated this result transmitted reference range: 80 - 100 mmHg. The reference range was not used to interpret this result as normal/abnormal. HCO3 (test code = 1652271680) 27 See_Comment H [Automated messa ge] The system which generated this result transmitted reference range: 22 - 26 mEq/L. The reference range was not used to interpret this result as normal/abnormal. BE (test code = 9099177427) 0.8 See_Comment [Automated messa ge] The system which generated this result transmitted reference range: -3.0 - 3.0 mEq/L. The reference range was not used to interpret this result as normal/abnormal. THB (test code = 8353393816) 13.3 g/dL 12.0-16.0 %O2HB (test code = 0570165266) 97.3 % 94.0-99.0 %COHB ART (test code = 6895794933) 0.4 % 0.0-1.5 %METHB ART (test code = 7499390648) 0.3 % 0.4-1.5 L VOL%O2 ART (test code = 2655842305) 18.4 % 15.0-23.0 NA (test code = 9776116736) 135 mmol/L 135-145 K+ (test code = 8694191050) 4.9 mmol/L 3.5-5.0 AC CA IONZ (test code = 3842744849) 4.50 mg/dL 4.50-5.30 GLUCOSE (test code = 6772184257) 285 mg/dL 70-110 H LACTIC ACID (test code = 8520718493) 1.77 mmol/L 0.50-2.20 QUES Lab Interpretation (test code = 06104-4) [facility] + Lactic [id number] 00:38:05* Test Item Value Reference Range Interpretation Comme nts PH (test code = 2) 7.34 7.35-7.45 L PCO2 (test code = 1890572015) 52 See_Comment H [Automated messa ge] The system which generated this result transmitted reference range: 35 - 45 mmHg. The reference range was not used to interpret this result as normal/abnormal. PO2 (test code = 6482556798) 131 See_Comment H [Automated messa ge] The system which generated this result transmitted reference range: 80 - 100 mmHg. The reference range was not used to interpret this result as normal/abnormal. HCO3 (test code = 4669574411) 27 See_Comment H [Automated messa ge] The system which generated this result transmitted reference range: 22 - 26 mEq/L. The reference range was not used to interpret this result as normal/abnormal. BE (test code = 2411704438) 0.8 See_Comment [Automated messa ge] The system which generated this result transmitted reference range: -3.0 - 3.0 mEq/L. The reference range was not used to interpret this result as normal/abnormal. THB (test code = 9123987445) 13.3 g/dL 12.0-16.0 %O2HB (test code = 0004855511) 97.3 % 94.0-99.0 %COHB ART (test code = 5193811364) 0.4 % 0.0-1.5 %METHB ART (test code = 1650510442) 0.3 % 0.4-1.5 L VOL%O2 ART (test code = 7597920176) 18.4 % 15.0-23.0 NA (test code = 0471715404) 135 mmol/L 135-145 K+ (test code = 3907533389) 4.9 mmol/L 3.5-5.0 AC CA IONZ (test code = 8052091070) 4.50 mg/dL 4.50-5.30 GLUCOSE (test code = 0026674116) 285 mg/dL 70-110 H LACTIC ACID (test code = 4693952467) 1.77 mmol/L 0.50-2.20 QUES Lab Interpretation (test code = 80459-4) Abnormal [facility] METABOLIC PANEL (NA, K, CL, CO2, GLUCOSE, BUN, CREATININE, CA)2023-03-21 22:04:31* Test Item Value Reference Range Interpretation Comme nts NA (test code = 3344395560) 137 mmol/L 135-145 K (test code = 7949910119) 5.1 mmol/L 3.5-5.0 H CL (test code = 8640519434) 103 mmol/L 98-108 CO2 TOTAL (test code = 8585917963) 25 mmol/L 23-31 AGAP (test code = 9894294784) 9 2-16 BUN (test code = 1329213715) 31 mg/dL 7-23 H GLUCOSE (test code = 1864433287) 337 mg/dL 70-110 H CREATININE (test code = 5396764918) 1.40 mg/dL 0.50-1.04 H CALCIUM (test code = 5542749357) 8.6 mg/dL 8.6-10.6 eGFR (test code = 3886675811) 36.6 mL/min/1.73m2 MAJOR (test code = MAJOR) [...] imaging tests). Lab Interpretation (test code = 20431-4) [facility] Test Item Value Reference Range Interpretation Comme nts MAGNESIUM (test code = 7885390101) 2.2 mg/dL 1.7-2.4 Lab Interpretation (test cod e = 77612-5) [facility] 22:04:31* Test Item Value Reference Range Interpretation Comme nts PHOSPHORUS (test code = 3339716992) 5.4 mg/dL 2.5-5.0 H Lab Interpretation (test cod e = 47338-6) [facility] (NA, K, CL, CO2, GLUCOSE, BUN, CREATININE, CA)2023-03-21 22:04:31* Test Item Value Reference Range Interpretation Comme nts NA (test code = 0992806370) 137 mmol/L 135-145 K (test code = 8679259806) 5.1 mmol/L 3.5-5.0 H CL (test code = 1578668409) 103 mmol/L 98-108 CO2 TOTAL (test code = 9641105766) 25 mmol/L 23-31 AGAP (test code = 0509970473) 9 2-16 BUN (test code = 6397163025) 31 mg/dL 7-23 H GLUCOSE (test code = 0037253261) 337 mg/dL 70-110 H CREATININE (test code = 0036269898) 1.40 mg/dL 0.50-1.04 H CALCIUM (test code = 8798395248) 8.6 mg/dL 8.6-10.6 eGFR (test code = 9959153998) 36.6 mL/min/1.73m2 MAJOR (test code = MAJOR) [...] imaging tests). Lab Interpretation (test code = 56508-9) [facility] 22:04:31* Test Item Value Reference Range Interpretation Comme nts MAGNESIUM (test code = 3546726331) 2.2 mg/dL 1.7-2.4 Lab Interpretation (test cod e = 77954-6) [facility] 22:04:31* Test Item Value Reference Range Interpretation Comme nts PHOSPHORUS (test code = 8548491862) 5.4 mg/dL 2.5-5.0 H Lab Interpretation (test cod e = 02637-3) [facility] (NA, K, CL, CO2, GLUCOSE, BUN, CREATININE, CA)2023-03-21 22:04:31* Test Item Value Reference Range Interpretation Comme nts NA (test code = 6635576776) 137 mmol/L 135-145 K (test code = 8208470810) 5.1 mmol/L 3.5-5.0 H CL (test code = 9883272315) 103 mmol/L 98-108 CO2 TOTAL (test code = 1677940981) 25 mmol/L 23-31 AGAP (test code = 7065298206) 9 2-16 BUN (test code = 6377609728) 31 mg/dL 7-23 H GLUCOSE (test code = 0650683653) 337 mg/dL 70-110 H CREATININE (test code = 0200990299) 1.40 mg/dL 0.50-1.04 H CALCIUM (test code = 8822060262) 8.6 mg/dL 8.6-10.6 eGFR (test code = 2975319626) 36.6 mL/min/1.73m2 MAJOR (test code = MAJOR) [...] imaging tests). Lab Interpretation (test code = 47236-2) [facility] 22:04:31* Test Item Value Reference Range Interpretation Comme nts MAGNESIUM (test code = 3094444728) 2.2 mg/dL 1.7-2.4 Lab Interpretation (test cod e = 32324-8) [facility] 22:04:31* Test Item Value Reference Range Interpretation Comme nts PHOSPHORUS (test code = 3706367333) 5.4 mg/dL 2.5-5.0 H Lab Interpretation (test cod e = 81357-2) Abnormal [facility] GLUCOSE (AUTOMATED)2023-03-21 21:42:12* Test Item Value Reference Range Interpretation Comme nts POCT GLU (test code = 6351533285) 337 mg/dL 70-110 H Lab Interpretation (test cod e = 21631-6) Abnormal [facility] GLUCOSE (AUTOMATED)2023-03-21 21:42:12* Test Item Value Reference Range Interpretation Comme nts POCT GLU (test code = 2018009148) 337 mg/dL 70-110 H Lab Interpretation (test cod e = 66872-5) Abnormal [facility] GLUCOSE (AUTOMATED)2023-03-21 21:42:12* Test Item Value Reference Range Interpretation Comme nts POCT GLU (test code = 2584282511) 337 mg/dL 70-110 H Lab Interpretation (test cod e = 02345-6) [facility] + Lactic [id number] 21:22:42* Test Item Value Reference Range Interpretation Comme nts PH (test code = 2) 7.21 7.35-7.45 L PCO2 (test code = 3487794957) 65 See_Comment H [Automated messa ge] The system which generated this result transmitted reference range: 35 - 45 mmHg. The reference range was not used to interpret this result as normal/abnormal. PO2 (test code = 3860256361) 79 See_Comment L [Automated messa ge] The system which generated this result transmitted reference range: 80 - 100 mmHg. The reference range was not used to interpret this result as normal/abnormal. HCO3 (test code = 9438764475) 25 See_Comment [Automated messa ge] The system which generated this result transmitted reference range: 22 - 26 mEq/L. The reference range was not used to interpret this result as normal/abnormal. BE (test code = 7561613328) -3.6 See_Comment L [Automated messa ge] The system which generated this result transmitted reference range: -3.0 - 3.0 mEq/L. The reference range was not used to interpret this result as normal/abnormal. THB (test code = 7102357384) 11.1 g/dL 12.0-16.0 L %O2HB (test code = 2312550936) 91.4 % 94.0-99.0 L %COHB ART (test code = 2576275998) 1.2 % 0.0-1.5 %METHB ART (test code = 1946559003) 0.3 % 0.4-1.5 L VOL%O2 ART (test code = 9705038058) 14.4 % 15.0-23.0 L NA (test code = 8073432297) 135 mmol/L 135-145 K+ (test code = 8538747554) 4.9 mmol/L 3.5-5.0 AC CA IONZ (test code = 1270587285) 4.60 mg/dL 4.50-5.30 GLUCOSE (test code = 1742292611) 347 mg/dL 70-110 H LACTIC ACID (test code = 0314693573) 0.78 mmol/L 0.50-2.20 Lab Interpretation (test code = 68393-3) [facility] + Lactic [id number] 21:22:42* Test Item Value Reference Range Interpretation Comme nts PH (test code = 2) 7.21 7.35-7.45 L PCO2 (test code = 2744933195) 65 See_Comment H [Automated messa ge] The system which generated this result transmitted reference range: 35 - 45 mmHg. The reference range was not used to interpret this result as normal/abnormal. PO2 (test code = 6249876694) 79 See_Comment L [Automated messa ge] The system which generated this result transmitted reference range: 80 - 100 mmHg. The reference range was not used to interpret this result as normal/abnormal. HCO3 (test code = 8477449372) 25 See_Comment [Automated messa ge] The system which generated this result transmitted reference range: 22 - 26 mEq/L. The reference range was not used to interpret this result as normal/abnormal. BE (test code = 6278055432) -3.6 See_Comment L [Automated messa ge] The system which generated this result transmitted reference range: -3.0 - 3.0 mEq/L. The reference range was not used to interpret this result as normal/abnormal. THB (test code = 6792375893) 11.1 g/dL 12.0-16.0 L %O2HB (test code = 5126609133) 91.4 % 94.0-99.0 L %COHB ART (test code = 0404679994) 1.2 % 0.0-1.5 %METHB ART (test code = 8471655512) 0.3 % 0.4-1.5 L VOL%O2 ART (test code = 6833951176) 14.4 % 15.0-23.0 L NA (test code = 2153814384) 135 mmol/L 135-145 K+ (test code = 3844448754) 4.9 mmol/L 3.5-5.0 AC CA IONZ (test code = 2665341251) 4.60 mg/dL 4.50-5.30 GLUCOSE (test code = 7894082045) 347 mg/dL 70-110 H LACTIC ACID (test code = 1691047622) 0.78 mmol/L 0.50-2.20 Lab Interpretation (test code = 33020-1) [facility] + Lactic Ipht3876-67-30 21:22:42* Test Item Value Reference Range Interpretation Comme nts PH (test code = 2) 7.21 7.35-7.45 L PCO2 (test code = 9373083190) 65 See_Comment H [Automated messa ge] The system which generated this result transmitted reference range: 35 - 45 mmHg. The reference range was not used to interpret this result as normal/abnormal. PO2 (test code = 3974437372) 79 See_Comment L [Automated messa ge] The system which generated this result transmitted reference range: 80 - 100 mmHg. The reference range was not used to interpret this result as normal/abnormal. HCO3 (test code = 4009272535) 25 See_Comment [Automated messa ge] The system which generated this result transmitted reference range: 22 - 26 mEq/L. The reference range was not used to interpret this result as normal/abnormal. BE (test code = 1385552551) -3.6 See_Comment L [Automated messa ge] The system which generated this result transmitted reference range: -3.0 - 3.0 mEq/L. The reference range was not used to interpret this result as normal/abnormal. THB (test code = 4330559940) 11.1 g/dL 12.0-16.0 L %O2HB (test code = 3358061957) 91.4 % 94.0-99.0 L %COHB ART (test code = 2281668336) 1.2 % 0.0-1.5 %METHB ART (test code = 3173187841) 0.3 % 0.4-1.5 L VOL%O2 ART (test code = 6524739694) 14.4 % 15.0-23.0 L NA (test code = 3690646855) 135 mmol/L 135-145 K+ (test code = 0138962371) 4.9 mmol/L 3.5-5.0 AC CA IONZ (test code = 4147654511) 4.60 mg/dL 4.50-5.30 GLUCOSE (test code = 1276224462) 347 mg/dL 70-110 H LACTIC ACID (test code = 0058444713) 0.78 mmol/L 0.50-2.20 Lab Interpretation (test code = 01485-9) [facility] / [id number] 21:10:04* Test Item Value Reference Range Interpretation Comme [facility] PROTIME PATIENT (test code = 5964-2) 12.8 See_Comment H [Automated [employer]] The system which generated this result transmitted reference range: 10.1 - 12.6 Seconds. The reference range was not used to interpret this result as normal/abnormal. INR (test code = 6301-6) 1.1 Normal INR <1.1; Warfarin Therapeutic range 2.0 to 3.0 or 2.5 to 3.5, depending upon the indications. Lab Interpretation (test code = 43762-8) [facility] 21:10:04* Test Item Value Reference Range Interpretation Comme [facility] APTT Patient (test code = 3173-2) 87 See_Comment H [Automated messa ge] The system which generated this result transmitted reference range: 26 - 36 Seconds. The reference range was not used to interpret this result as normal/abnormal. Lab Interpretation (test code = 27790-0) [facility] / [id number] 21:10:04* Test Item Value Reference Range Interpretation [...] the indications. Lab Interpretation (test code = 33839-5) [facility] 21:10:04* Test Item Value Reference Range Interpretation Comme [facility] APTT Patient (test code = 3173-2) 87 See_Comment H [Automated messa ge] The system which generated this result transmitted reference range: 26 - 36 Seconds. The reference range was not used to interpret this result as normal/abnormal. Lab Interpretation (test code = 76122-9) [facility] / [id number] 21:10:04* Test Item Value Reference Range Interpretation [...] the indications. Lab Interpretation (test code = 86611-6) [facility] 21:10:04* Test Item Value Reference Range Interpretation Comme [facility] APTT Patient (test code = 3173-2) 87 See_Comment H [Automated messa ge] The system which generated this result transmitted reference range: 26 - 36 Seconds. The reference range was not used to interpret this result as normal/abnormal. Lab Interpretation (test code = 72539-3) [facility] WITH [id number] 21:03:24* Test Item Value Reference Range Interpretation [...] 31.6 g/dL 31.6-35.1 RDW-SD (test code = 71132-1) 52.7 fL 39.0-49.9 H RDW-CV (test code = 788-0) 17.2 % 12.0-15.5 H PLT (test code = 777-3) 218 See_Comment [Automated message] The system which generated this result transmitted reference range: 166 - 358 10*3/?L. The reference range was not used to interpret this result as normal/abnormal. MPV (test code = 92362-9) 10.9 fL 9.5-12.9 NRBC/100 WBC (test code = 6762724159) 0.0 See_Comment [Automated message] The system which generated this result transmitted reference range: 0.0 - 10.0 /100 WBCs. The reference range was not used to interpret this result as normal/abnormal. NRBC x10^3 (test code = 1134348936) See_Comment [Automated message] The system which generated this result transmitted reference range: 10*3/?L. The reference range was not used to interpret this result as normal/abnormal. GRAN MAT (NEUT) % (test code = 770-8) 83.2 % IMM GRAN % (test code = 1286941069) 0.90 % LYMPH % (test code = 736-9) 6.4 % MONO % (test code = 5905-5) 5.2 % EOS % (test code = 713-8) 3.9 % BASO % (test code = 706-2) 0.4 % GRAN MAT x10^3(ANC) (test code = 9422403631) 12.70 10*3/uL 1.88-7.09 H IMM GRAN x10^3 (test code = 8868420067) 0.13 10*3/uL 0.00-0.06 H LYMPH x10^3 (test code = 731-0) 0.97 10*3/uL 1.32-3.29 L MONO x10^3 (test code = 742-7) 0.79 10*3/uL 0.33-0.92 EOS x10^3 (test code = 711-2) 0.59 10*3/uL 0.03-0.39 H BASO x10^3 (test code = 704-7) 0.06 10*3/uL 0.01-0.07 Lab Interpretation (test code = 11973-9) Abnormal [facility] WITH [id number] 21:03:24* Test Item Value Reference Range Interpretation [...] 31.6 g/dL 31.6-35.1 RDW-SD (test code = 26123-5) 52.7 fL 39.0-49.9 H RDW-CV (test code = 788-0) 17.2 % 12.0-15.5 H PLT (test code = 777-3) 218 See_Comment [Automated message] The system which generated this result transmitted reference range: 166 - 358 10*3/?L. The reference range was not used to interpret this result as normal/abnormal. MPV (test code = 90807-8) 10.9 fL 9.5-12.9 NRBC/100 WBC (test code = 0074599477) 0.0 See_Comment [Automated message] The system which generated this result transmitted reference range: 0.0 - 10.0 /100 WBCs. The reference range was not used to interpret this result as normal/abnormal. NRBC x10^3 (test code = 9937693279) See_Comment [Automated message] The system which generated this result transmitted reference range: 10*3/?L. The reference range was not used to interpret this result as normal/abnormal. GRAN MAT (NEUT) % (test code = 770-8) 83.2 % IMM GRAN % (test code = 3143706716) 0.90 % LYMPH % (test code = 736-9) 6.4 % MONO % (test code = 5905-5) 5.2 % EOS % (test code = 713-8) 3.9 % BASO % (test code = 706-2) 0.4 % GRAN MAT x10^3(ANC) (test code = 2995542674) 12.70 10*3/uL 1.88-7.09 H IMM GRAN x10^3 (test code = 8448761337) 0.13 10*3/uL 0.00-0.06 H LYMPH x10^3 (test code = 731-0) 0.97 10*3/uL 1.32-3.29 L MONO x10^3 (test code = 742-7) 0.79 10*3/uL 0.33-0.92 EOS x10^3 (test code = 711-2) 0.59 10*3/uL 0.03-0.39 H BASO x10^3 (test code = 704-7) 0.06 10*3/uL 0.01-0.07 Lab Interpretation (test code = 33425-0) Abnormal [facility] WITH [id number] 21:03:24* Test Item Value Reference Range Interpretation [...] 31.6 g/dL 31.6-35.1 RDW-SD (test code = 99237-8) 52.7 fL 39.0-49.9 H RDW-CV (test code = 788-0) 17.2 % 12.0-15.5 H PLT (test code = 777-3) 218 See_Comment [Automated message] The system which generated this result transmitted reference range: 166 - 358 10*3/?L. The reference range was not used to interpret this result as normal/abnormal. MPV (test code = 18716-5) 10.9 fL 9.5-12.9 NRBC/100 WBC (test code = [id number]) 0.0 See_Comment [Automated message] The system which generated this result transmitted reference range: 0.0 - 10.0 /100 WBCs. The reference range was not used to interpret this result as normal/abnormal. NRBC x10^3 (test code = [id number]) See_Comment [Automated message] The system which generated this result transmitted reference range: 10*3/?L. The reference range was not used to interpret this result as normal/abnormal. GRAN MAT (NEUT) % (test code = 770-8) 83.2 % IMM GRAN % (test code = 4274912869) 0.90 % LYMPH % (test code = 736-9) 6.4 % MONO % (test code = 5905-5) 5.2 % EOS % (test code = 713-8) 3.9 % BASO % (test code = 706-2) 0.4 % GRAN MAT x10^3(ANC) (test code = 2590404889) 12.70 10*3/uL 1.88-7.09 H IMM GRAN x10^3 (test code = 3728633137) 0.13 10*3/uL 0.00-0.06 H LYMPH x10^3 (test code = 731-0) 0.97 10*3/uL 1.32-3.29 L MONO x10^3 (test code = 742-7) 0.79 10*3/uL 0.33-0.92 EOS x10^3 (test code = 711-2) 0.59 10*3/uL 0.03-0.39 H BASO x10^3 (test code = 704-7) 0.06 10*3/uL 0.01-0.07 Lab Interpretation (test code = 67473-2) Abnormal [facility] GLUCOSE (AUTOMATED)2023-03-21 20:45:47* Test Item Value Reference Range Interpretation Comme nts POCT GLU (test code = 9789805924) 349 mg/dL 70-110 H Lab Interpretation (test cod e = 44280-4) Abnormal [facility] GLUCOSE (AUTOMATED)2023-03-21 20:45:47* Test Item Value Reference Range Interpretation Comme nts POCT GLU (test code = 2978123012) 349 mg/dL 70-110 H Lab Interpretation (test cod e = 50696-7) Abnormal [facility] GLUCOSE (AUTOMATED)2023-03-21 20:45:47* Test Item Value Reference Range Interpretation Comme nts POCT GLU (test code = 6436365416) 349 mg/dL 70-110 H Lab Interpretation (test cod e = 68568-1) Abnormal [facility] GLUCOSE (AUTOMATED)2023-03-21 14:49:15* Test Item Value Reference Range Interpretation Comme nts POCT GLU (test code = 2120781804) 269 mg/dL 70-110 H Lab Interpretation (test cod e = 11955-5) Abnormal [facility] GLUCOSE (AUTOMATED)2023-03-21 14:49:15* Test Item Value Reference Range Interpretation Comme nts POCT GLU (test code = 1344864059) 269 mg/dL 70-110 H Lab Interpretation (test cod e = 01307-6) Abnormal [facility] GLUCOSE (AUTOMATED)2023-03-21 14:49:15* Test Item Value Reference Range Interpretation Comme nts POCT GLU (test code = 4251714058) 269 mg/dL 70-110 H Lab Interpretation (test cod e = 61289-4) Abnormal [facility] GLUCOSE (AUTOMATED)2023-02-21 22:11:38* Test Item Value Reference Range Interpretation Comme nts POCT GLU (test code = 5411348301) 197 mg/dL 70-110 H Lab Interpretation (test cod e = 02122-6) Abnormal [facility] GLUCOSE (AUTOMATED)2023-02-21 17:06:17* Test Item Value Reference Range Interpretation Comme nts POCT GLU (test code = 7236627740) 170 mg/dL 70-110 H Lab Interpretation (test cod e = 05624-0) Abnormal [facility] GLUCOSE (AUTOMATED)2023-02-21 13:20:45* Test Item Value Reference Range Interpretation Comme nts POCT GLU (test code = 3738488053) 108 mg/dL 70-110 Lab Interpretation (test cod e = 58245-2) [facility] [id number] 04:44:32* Test Item Value Reference Range Interpretation Comme nts LACTIC ACID (test code = 3276474723) 1.31 mmol/L 0.50-2.20 Lab Interpretation (test cod e = 75452-6) [facility] [id number] 01:59:10* Test Item Value Reference Range Interpretation Comme nts LACTIC ACID (test code = 5893056544) 2.19 mmol/L 0.50-2.20 Lab Interpretation (test cod e = 81266-4) Normal [facility] URINALYSIS W SPECIFIC [id number] 15:30:00* Test Item Value Reference Range Interpretation [...] 3267) Lab Interpretation (test cod e = 14206-9) Abnormal [facility] URINALYSIS W SPECIFIC [id number] 15:30:00* Test Item Value Reference Range Interpretation [...] 3267) Lab Interpretation (test cod e = 59470-5) [facility]ERR[facility] [id number] 02:30:21* Test Item Value Reference Range Interpretation Comme nts FERRITIN (test code = 3640709705) 105.0 ng/mL 11.0-264.0 MAJOR (test code = MAJOR) Biotin has been reported to cause a negative bias, interpret results relative to patient's use of biotin. Lab Interpretation (test code = 48411-6) [facility] [id number] 21:20:57 * Test Item Value Reference Range Interpretation Comme nts TSH (test code = 7820582877) 3.71 See_Comment [Automated Video[employer]area ge] The system which generated this result transmitted reference range: 0.45 - 4.70 mIU/L. The reference range was not used to interpret this result as normal/abnormal. Lab Interpretation (test code = 31438-4) [facility] AustinFREE [id number] 21:07:16* Test Item Value Reference Range Interpretation Comme nts FREE T4 (test code = 8550610459) 1.18 See_Comment [Automated Video[employer]area ge] The system which generated this result transmitted reference range: 0.78 - 2.20 ng/dL:. The reference range was not used to interpret this result as normal/abnormal. Lab Interpretation (test code = 74374-3) [facility] AustinIRON [id number] 20:59:33* Test Item Value Reference Range Interpretation Comme nts IRON (test code = 5686012477) 50 ug/dL 50-160 TIBC (test code = 6671949336) 322 ug/dL 250-410 % FE SAT (test code = 3716249243) 16 % 20-50 L Lab Interpretation (test cod e = 37398-0) [facility]23-[facility]-28 20:50:49* Test Item Value Reference Range Interpretation Comme nts MAGNESIUM (test code = 7904141961) 2.1 mg/dL 1.7-2.4 Lab Interpretation (test cod e = 39028-3) [facility] AustinGLYCOSYLATED HEMOGLOBIN (A1C)2022-09-28 20:11:01* Test Item Value Reference Range Interpretation Comme nts HGB A1C (test code = 4548-4) 8.1 % 4.0-5.7 H MAJOR (test code = MAJOR) Reference RangesNormal: <5.7%Prediabetes: 5.7 - 6.4%Diabetes: > 6.5% Lab Interpretation (test code = 94672-8) Abnormal [facility] GLUCOSE (AUTOMATED)2022-07-05 22:35:15* Test Item Value Reference Range Interpretation Comme nts POCT GLU (test code = 2968324395) 228 mg/dL 70-110 H Lab Interpretation (test cod e = 01132-5) Abnormal [facility] GLUCOSE (AUTOMATED)2022-07-05 17:24:00* Test Item Value Reference Range Interpretation Comme nts POCT GLU (test code = 5752077768) 238 mg/dL 70-110 H Lab Interpretation (test cod e = 48574-4) Abnormal [facility] GLUCOSE (AUTOMATED)2022-07-05 15:19:38* Test Item Value Reference Range Interpretation Comme nts POCT GLU (test code = 8702228126) 171 mg/dL 70-110 H Lab Interpretation (test cod e = 28608-3) Abnormal [facility] GLUCOSE (AUTOMATED)2022-07-05 09:38:21* Test Item Value Reference Range Interpretation Comme nts POCT GLU (test code = 8871265239) 241 mg/dL 70-110 H Lab Interpretation (test cod e = 50880-5) Abnormal [facility] GLUCOSE (AUTOMATED)2022-07-05 07:30:23* Test Item Value Reference Range Interpretation Comme nts POCT GLU (test code = 5277200442) 179 mg/dL 70-110 H Lab Interpretation (test cod e = 59759-9) Abnormal [facility] GLUCOSE (AUTOMATED)2022-07-05 06:27:50* Test Item Value Reference Range Interpretation Comme nts POCT GLU (test code = 5431143155) 160 mg/dL 70-110 H Lab Interpretation (test cod e = 30475-2) Abnormal [facility] GLUCOSE (AUTOMATED)2022-07-04 22:34:25* Test Item Value Reference Range Interpretation Comme nts POCT GLU (test code = 1876493010) 198 mg/dL 70-110 H Lab Interpretation (test cod e = 38153-4) Abnormal [facility] GLUCOSE (AUTOMATED)2022-07-04 21:21:32* Test Item Value Reference Range Interpretation Comme nts POCT GLU (test code = 3335682394) 196 mg/dL 70-110 H Lab Interpretation (test cod e = 92687-0) Abnormal [facility] GLUCOSE (AUTOMATED)2022-07-04 17:38:52* Test Item Value Reference Range Interpretation Comme nts POCT GLU (test code = 0164500919) 202 mg/dL 70-110 H Lab Interpretation (test cod e = 65913-6) Abnormal [facility] GLUCOSE (AUTOMATED)2022-07-04 13:26:47* Test Item Value Reference Range Interpretation Comme nts POCT GLU (test code = 4305704074) 219 mg/dL 70-110 H Lab Interpretation (test cod e = 39507-2) Abnormal [facility] GLUCOSE (AUTOMATED)2022-07-04 06:42:08* Test Item Value Reference Range Interpretation Comme nts POCT GLU (test code = 0628603399) 184 mg/dL 70-110 H Lab Interpretation (test cod e = 90241-9) Abnormal [facility] GLUCOSE (AUTOMATED)2022-07-04 01:56:31* Test Item Value Reference Range Interpretation Comme nts POCT GLU (test code = 5322870148) 198 mg/dL 70-110 H Lab Interpretation (test cod e = 28086-8) Abnormal [facility] GLUCOSE (AUTOMATED)2022-07-03 22:17:31* Test Item Value Reference Range Interpretation Comme nts POCT GLU (test code = 1798817589) 200 mg/dL 70-110 H Lab Interpretation (test cod e = 85709-0) Abnormal [facility] METABOLIC PANEL (NA, K, CL, CO2, GLUCOSE, BUN, CREATININE, CA)2022-07-03 20:26:33* Test Item Value Reference Range Interpretation Comme nts NA (test code = 9811632290) 136 mmol/L 135-145 K (test code = 8606149775) 3.1 mmol/L 3.5-5.0 L CL (test code = 8890693458) 81 mmol/L 98-108 L CO2 TOTAL (test code = 7672018609) 47 mmol/L 23-31 H AGAP (test code = 8827193986) 2-16 BUN (test code = 0500070797) 33 mg/dL 7-23 H GLUCOSE (test code = 1302319581) 199 mg/dL 70-110 H CREATININE (test code = 2271110381) 1.54 mg/dL 0.50-1.04 H CALCIUM (test code = 8631083695) 7.8 mg/dL 8.6-10.6 L eGFR (test code = 4006083317) mL/min/1.73m2 MAJOR (test code = MAJOR) Association [...] imaging tests). Lab Interpretation (test code = 51166-7) [facility] AustinCINDY [id number] 20:21:17* Test Item Value Reference Range Interpretation Comments TROPONIN I (test code = 8301559738) 0.040 ng/mL See_Comment H [Automated message] The [...] of biotin. Lab Interpretation (test code = 17684-8) [facility] AustinN-TERMINAL [id number] 20:17:56* Test Item Value Reference Range Interpretation Comme [facility] NT-proBNP (test code = 4926933039) 3650 pg/mL See_Comment H [Automated message] The system which generated this result transmitted reference range: <=450. The reference range was not used to interpret this result as normal/abnormal. MAJOR (test code = MAJOR) Biotin has been reported to cause a negative bias, interpret results relative to patient's use of biotin. Lab Interpretation (test code = 03597-4) [facility]2022-[facility]-31 20:09:38* Test Item Value Reference Range Interpretation Comme nts MAGNESIUM (test code = 9100841858) 2.3 mg/dL 1.7-2.4 Lab Interpretation (test cod e = 01829-5) Normal [facility] GLUCOSE (AUTOMATED)2022-07-03 18:17:58* Test Item Value Reference Range Interpretation Comme [facility] POCT GLU (test code = 3771807733) 218 mg/dL 70-110 H Notified Provide r Lab Interpretation (test code = 26255-9) Abnormal [facility] GLUCOSE (AUTOMATED)2022-07-03 13:39:43* Test Item Value Reference Range Interpretation Comme nts POCT GLU (test code = 4692757299) 199 mg/dL 70-110 H Lab Interpretation (test cod e = 54408-4) Abnormal [facility] GLUCOSE (AUTOMATED)2022-07-03 10:55:23* Test Item Value Reference Range Interpretation Comme nts POCT GLU (test code = 2678607617) 211 mg/dL 70-110 H Lab Interpretation (test cod e = 15026-4) Abnormal [facility] GLUCOSE (AUTOMATED)2022-07-03 06:18:57* Test Item Value Reference Range Interpretation Comme nts POCT GLU (test code = 1995570675) 172 mg/dL 70-110 H Lab Interpretation (test cod e = 45085-0) Abnormal [facility] GLUCOSE (AUTOMATED)2022-07-03 02:25:25* Test Item Value Reference Range Interpretation Comme nts POCT GLU (test code = 2015907628) 251 mg/dL 70-110 H Lab Interpretation (test cod e = 32604-7) Abnormal [facility] GLUCOSE (AUTOMATED)2022-07-03 02:25:25* Test Item Value Reference Range Interpretation Comme nts POCT GLU (test code = 1390747945) 191 mg/dL 70-110 H Lab Interpretation (test cod e = 41652-3) Abnormal [facility] GLUCOSE (AUTOMATED)2022-07-02 22:03:54* Test Item Value Reference Range Interpretation Comme nts POCT GLU (test code = 9926533186) 232 mg/dL 70-110 H Lab Interpretation (test cod e = 40850-6) Abnormal [facility] GLUCOSE (AUTOMATED)2022-07-02 22:03:49* Test Item Value Reference Range Interpretation Comme nts POCT GLU (test code = 7366685132) 191 mg/dL 70-110 H Lab Interpretation (test cod e = 21956-6) [facility]59* Test Item Value Reference Range Interpretation Comme nts MAGNESIUM (test code = 1751526140) 2.2 mg/dL 1.7-2.4 Lab Interpretation (test cod e = 82363-5) Normal [facility] GLUCOSE (AUTOMATED)2022-07-02 13:32:56* Test Item Value Reference Range Interpretation Comme nts POCT GLU (test code = 1069307044) 184 mg/dL 70-110 H Lab Interpretation (test cod e = 21777-6) [facility] (NA, K, CL, CO2, GLUCOSE, BUN, CREATININE, CA)2022-07-02 12:33:47* Test Item Value Reference Range Interpretation Comme nts NA (test code = 5809095423) 138 mmol/L 135-145 K (test code = 3307362065) 3.1 mmol/L 3.5-5.0 L CL (test code = 2738944624) 87 mmol/L 98-108 L CO2 TOTAL (test code = 3995940767) 45 mmol/L 23-31 H AGAP (test code = 0505994528) 2-16 BUN (test code = 1831849264) 26 mg/dL 7-23 H GLUCOSE (test code = 9213354338) 182 mg/dL 70-110 H CREATININE (test code = 1423653869) 1.33 mg/dL 0.50-1.04 H CALCIUM (test code = 3365129885) 7.7 mg/dL 8.6-10.6 L eGFR (test code = 6862997742) mL/min/1.73m2 MAJOR (test code = MAJOR) Association [...] imaging tests). Lab Interpretation (test code = 53963-1) [facility] AustinTROP[facility] [id number] 12:04:10* Test Item Value Reference Range Interpretation Comments TROPONIN I (test code = 3472217556) 0.060 ng/mL See_Comment H [Automated message] The [...] of biotin. Lab Interpretation (test code = 64231-0) [facility] [id number] 12:01:08* Test Item Value Reference Range Interpretation Comme nts NT-proBNP (test code = 1870522536) 5730 pg/mL See_Comment H [Automated message] The system which generated this result transmitted reference range: <=450. The reference range was not used to interpret this result as normal/abnormal. MAJOR (test code = MAJOR) Biotin has been reported to cause a negative bias, interpret results relative to patient's use of biotin. Lab Interpretation (test code = 12942-6) [facility] AustinLIP[facility] (23783)(TOTAL CHOLESTEROL, TRIGLYCERIDES, HDL)2022-07-02 11:55:30* Test Item Value Reference Range Interpretation Comme nts CHOL (test code = 9428361567) 113 mg/dL 120-200 L HDL (test code = 4407292914) 17 mg/dL See_Comment L [Automated messa ge] The system which generated this result transmitted reference range: >=50. The reference range was not used to interpret this result as normal/abnormal. HDLC RATIO (test code = 9709513642) See_Comment H [Automated messa ge] The system which generated this result transmitted reference range: <=4.5. The reference range was not used to interpret this result as normal/abnormal. TRIG (test code = 1031196416) 175 mg/dL 30-170 H LDL CHOL (test code = 41964-1) 61 mg/dL See_Comment [Automated messa ge] The system which generated this result transmitted reference range: <=160. The reference range was not used to interpret this result as normal/abnormal. VLDL (test code = 0004841071) 35 mg/dL 5-60 Lab Interpretation (test code = 74716-6) Abnormal [facility] WITH [id number] 11:27:24* Test Item Value Reference Range Interpretation [...] g/dL 31.6-35.1 L RDW-SD (test code = 77904-0) 51.4 fL 39.0-49.9 H RDW-CV (test code = 788-0) 17.1 % 12.0-15.5 H PLT (test code = 777-3) See_Comment [Automated messa ge] The system which generated this result transmitted reference range: 166 - 358 10*3/?L. The reference range was not used to interpret this result as normal/abnormal. MPV (test code = 17561-3) 9.5 fL 9.5-12.9 NRBC/100 WBC (test code = 6042959127) See_Comment [Automated [employer] ssage] The system which generated this result transmitted reference range: 0.0 - 10.0 /100 WBCs. The reference range was not used to interpret this result as normal/abnormal. NRBC x10^3 (test code = 3064949926) See_Comment [Automated messa ge] The system which generated this result transmitted reference range: 10*3/?L. The reference range was not used to interpret this result as normal/abnormal. GRAN MAT (NEUT) % (test code = 770-8) 67.5 % IMM GRAN % (test code = 6220122620) 0.70 % LYMPH % (test code = 736-9) 10.7 % MONO % (test code = 5905-5) 14.1 % EOS % (test code = 713-8) 6.5 % BASO % (test code = 706-2) 0.5 % GRAN MAT x10^3(ANC) (test code = 9563461221) 3.98 10*3/uL 1.88-7.09 IMM GRAN x10^3 (test code = 5407840157) 0.04 10*3/uL 0.00-0.06 LYMPH x10^3 (test code = 731-0) 0.63 10*3/uL 1.32-3.29 L MONO x10^3 (test code = 742-7) 0.83 10*3/uL 0.33-0.92 EOS x10^3 (test code = 711-2) 0.38 10*3/uL 0.03-0.39 BASO x10^3 (test code = 704-7) 0.03 10*3/uL 0.01-0.07 Lab Interpretation (test code = 06939-8) Abnormal [facility] GLUCOSE (AUTOMATED)2022-07-02 05:18:28* Test Item Value Reference Range Interpretation Comme nts POCT GLU (test code = 1188514245) 186 mg/dL 70-110 H Lab Interpretation (test cod e = 29102-4) Abnormal [facility] GLUCOSE (AUTOMATED)2022-07-02 02:16:12* Test Item Value Reference Range Interpretation Comme nts POCT GLU (test code = 7077649906) 167 mg/dL 70-110 H Lab Interpretation (test cod e = 82363-7) Abnormal [facility] GLUCOSE (AUTOMATED)2022-07-01 22:29:43* Test Item Value Reference Range Interpretation Comme nts POCT GLU (test code = 2253537030) 166 mg/dL 70-110 H Notified Provide r Lab Interpretation (test code = 21033-6) Abnormal [facility] GLUCOSE (AUTOMATED)2022-07-01 22:29:37* Test Item Value Reference Range Interpretation Comme nts POCT GLU (test code = 3983376278) 219 mg/dL 70-110 H Notified Provide r Lab Interpretation (test code = 35227-4) Abnormal [facility] GLUCOSE (AUTOMATED)2022-07-01 22:29:32* Test Item Value Reference Range Interpretation Comme nts POCT GLU (test code = 8751347491) 219 mg/dL 70-110 H Notified Provide r Lab Interpretation (test code = 39375-6) [facility] [id number] 20:01:37* Test Item Value Reference Range Interpretation Comme nts Blood Culture-Aerobic (test code = 10897-1) No organisms isolated No growth Previous preliminary verified result was Culture In Progress on 06/26/2022 at 1701 CSTPrevious preliminary verified result was No growth at 24 hours on 06/27/2022 at 1401 CSTPrevious preliminary verified result was No growth at 48 hours on 06/28/2022 at 1401 CSTPrevious preliminary verified result was No growth at 72 hours on 06/29/2022 at 1401 EXECUTIVE CHEF ASSISTANT Blood Culture-Anaerobic (test code = 42173-8) No organisms isolated No growth Previous preliminary verified result was Culture In Progress on 06/26/2022 at 1701 CSTPrevious preliminary verified result was No growth at 24 hours on 06/27/2022 at 1401 CSTPrevious preliminary verified result was No growth at 48 hours on 06/28/2022 at 1401 CSTPrevious preliminary verified result was No growth at 72 hours on 06/29/2022 at 1401 EXECUTIVE CHEF ASSISTANT Lab Interpretation (test code = 23883-6) Normal [facility] CULTURE [id number] 20:01:37* Test Item Value Reference Range Interpretation Comme nts Blood Culture-Aerobic (test code = 56770-3) No organisms isolated No growth Previous preliminary verified result was Culture In Progress on 06/26/2022 at 1701 CSTPrevious preliminary verified result was No growth at 24 hours on 06/27/2022 at 1401 CSTPrevious preliminary verified result was No growth at 48 hours on 06/28/2022 at 1401 CSTPrevious preliminary verified result was No growth at 72 hours on 06/29/2022 at 1401 EXECUTIVE CHEF ASSISTANT Blood Culture-Anaerobic (test code = 11880-5) No organisms isolated No growth Previous preliminary verified result was Culture In Progress on 06/26/2022 at 1701 CSTPrevious preliminary verified result was No growth at 24 hours on 06/27/2022 at 1401 CSTPrevious preliminary verified result was No growth at 48 hours on 06/28/2022 at 1401 CSTPrevious preliminary verified result was No growth at 72 hours on 06/29/2022 at 1401 EXECUTIVE CHEF ASSISTANT Lab Interpretation (test code = 07390-7) Normal [facility] GLUCOSE (AUTOMATED)2022-07-01 09:39:13* Test Item Value Reference Range Interpretation Comme nts POCT GLU (test code = 2753539506) 198 mg/dL 70-110 H Lab Interpretation (test cod e = 65499-5) Abnormal [facility] GLUCOSE (AUTOMATED)2022-07-01 05:30:18* Test Item Value Reference Range Interpretation Comme nts POCT GLU (test code = 7198521087) 221 mg/dL 70-110 H Lab Interpretation (test cod e = 68646-3) Abnormal [facility] GLUCOSE (AUTOMATED)2022-07-01 02:07:09* Test Item Value Reference Range Interpretation Comme nts POCT GLU (test code = 4121531897) 220 mg/dL 70-110 H Lab Interpretation (test cod e = 17676-5) Abnormal [facility] GLUCOSE (AUTOMATED)2022-06-30 22:49:27* Test Item Value Reference Range Interpretation Comme nts POCT GLU (test code = 1647888582) 197 mg/dL 70-110 H Lab Interpretation (test cod e = 17202-0) Abnormal [facility] GLUCOSE (AUTOMATED)2022-06-30 18:01:17* Test Item Value Reference Range Interpretation Comme nts POCT GLU (test code = 6167203390) 198 mg/dL 70-110 H Lab Interpretation (test cod e = 80426-2) Abnormal [facility] GLUCOSE (AUTOMATED)2022-06-30 14:41:50* Test Item Value Reference Range Interpretation Comme nts POCT GLU (test code = 2026872743) 249 mg/dL 70-110 H Lab Interpretation (test cod e = 60439-0) Abnormal [facility] METABOLIC PANEL (NA, K, CL, CO2, GLUCOSE, BUN, CREATININE, CA)2022-06-30 12:42:06* Test Item Value Reference Range Interpretation Comme nts NA (test code = 4877391249) 140 mmol/L 135-145 K (test code = 5472300807) 3.6 mmol/L 3.5-5.0 CL (test code = 4430745595) 100 mmol/L 98-108 CO2 TOTAL (test code = 2641898653) 33 mmol/L 23-31 H AGAP (test code = 4778510148) 2-16 BUN (test code = 4347013884) 18 mg/dL 7-23 GLUCOSE (test code = 9013818028) 185 mg/dL 70-110 H CREATININE (test code = 3081665985) 1.35 mg/dL 0.50-1.04 H CALCIUM (test code = 5302226224) 8.5 mg/dL 8.6-10.6 L eGFR (test code = 0815204752) mL/min/1.73m2 MAJOR (test code = MAJOR) Association [...] imaging tests). Lab Interpretation (test code = 82219-6) [facility]2022[facility]-28 12:42:06* Test Item Value Reference Range Interpretation Comme nts MAGNESIUM (test code = 4335374566) 2.3 mg/dL 1.7-2.4 Lab Interpretation (test cod e = 78949-4) [facility]2022-[facility]-28 12:42:06* Test Item Value Reference Range Interpretation Comme nts PHOSPHORUS (test code = 4922681724) 2.8 mg/dL 2.5-5.0 Lab Interpretation (test cod e = 10764-9) [facility] [id number] 12:42:06* Test Item Value Reference Range Interpretation Comme nts NT-proBNP (test code = 1336009784) 9660 pg/mL See_Comment H [Automated message] The system which generated this result transmitted reference range: <=450. The reference range was not used to interpret this result as normal/abnormal. MAJOR (test code = MAJOR) Biotin has been reported to cause a negative bias, interpret results relative to patient's use of biotin. Lab Interpretation (test code = 71959-1) Abnormal [facility] WITH [id number] 11:09:01* Test Item Value Reference Range Interpretation Comme nts WBC (test code = 6690-2) See_Comment H [Automated [employer] ge] The system which generated this result transmitted reference range: 4.30 - 11.10 10*3/?L. The reference range was not used to interpret this result as normal/abnormal. RBC (test code = 789-8) See_Comment [Automated [employer] ge] The system which generated this result [...] g/dL 31.6-35.1 L RDW-SD (test code = 40946-7) 50.2 fL 39.0-49.9 H RDW-CV (test code = 788-0) 17.1 % 12.0-15.5 H PLT (test code = 777-3) See_Comment [Automated [employer] ge] The system which generated this result transmitted reference range: 166 - 358 10*3/?L. The reference range was not used to interpret this result as normal/abnormal. MPV (test code = 23009-9) 10.1 fL 9.5-12.9 NRBC/100 WBC (test code = 4641514957) See_Comment [Automated [employer] ssage] The system which generated this result transmitted reference range: 0.0 - 10.0 /100 WBCs. The reference range was not used to interpret this result as normal/abnormal. NRBC x10^3 (test code = 9084208562) See_Comment [Automated messa ge] The system which generated this result transmitted reference range: 10*3/?L. The reference range was not used to interpret this result as normal/abnormal. GRAN MAT (NEUT) % (test code = 770-8) 83.2 % IMM GRAN % (test code = 3522775756) 0.80 % LYMPH % (test code = 736-9) 7.0 % MONO % (test code = 5905-5) 7.2 % EOS % (test code = 713-8) 1.5 % BASO % (test code = 706-2) 0.3 % GRAN MAT x10^3(ANC) (test code = 5186301795) 9.74 10*3/uL 1.88-7.09 H IMM GRAN x10^3 (test code = 3431428048) 0.09 10*3/uL 0.00-0.06 H LYMPH x10^3 (test code = 731-0) 0.82 10*3/uL 1.32-3.29 L MONO x10^3 (test code = 742-7) 0.84 10*3/uL 0.33-0.92 EOS x10^3 (test code = 711-2) 0.18 10*3/uL 0.03-0.39 BASO x10^3 (test code = 704-7) 0.04 10*3/uL 0.01-0.07 Lab Interpretation (test code = 48645-6) Abnormal [facility] GLUCOSE (AUTOMATED)2022-06-30 10:54:19* Test Item Value Reference Range Interpretation Comme nts POCT GLU (test code = 5840138252) 174 mg/dL 70-110 H Lab Interpretation (test cod e = 16899-7) Abnormal [facility] GLUCOSE (AUTOMATED)2022-06-30 02:23:20* Test Item Value Reference Range Interpretation Comme nts POCT GLU (test code = 9135119628) 187 mg/dL 70-110 H Lab Interpretation (test cod e = 60069-8) Abnormal [facility] GLUCOSE (AUTOMATED)2022-06-30 01:12:17* Test Item Value Reference Range Interpretation Comme nts POCT GLU (test code = 9822475794) 206 mg/dL 70-110 H Lab Interpretation (test cod e = 01569-7) [facility] 22:52:13* Test Item Value Reference Range Interpretation Comme nts Height (test code = 2962881907) in Weight (test code = 5034635195) lbs Systolic BP (test code = 6382678663) mmHg Diastolic BP (test code = 9743500793) mmHg Heart Rate (test code = 1385935862) bpm BSA (test code = 5155521732) 2.25 m2 LVIDD (test code = 9248288383) 5.90 cm Left Ventricular End Diastolic Volume by Teichholz Method (test code = 4987469) 171.4 mL IVS (test code = 4312030586) 1.10 cm Interventricular Septum Diastolic Thickness by 2D (test code = 6485691) 1.10 cm LVPWD (test code = 5494568802) 0.97 cm PW (test code = 1882830244) 0.97 cm 0.6-1.1 EF(Teich) (test code = 1077625493) 46.70 % LVIDS (test code = 4919764036) 4.50 cm Left Ventricular End Systolic Volume by Teichholz Method (test code = 7982194) 91.3 mL FS (test code = 9207301214) 24 % EF - 2D (test code = 09257206) 46.70 % LVOT diameter (test code = 5324041198) 2.05 cm LVOT area (test code = 9917087788) 3.30 cm2 ACS (test code = 9704958111) 1.83 cm Ao root diam (test code = 0549728386) 3.30 cm Aortic root (test code = 4434030823) 3.3 cm Ao root annulus (test code = 2732409470) 3.3 cm LA size (test code = 8158926255) 3.7 cm E wave decelartion time (test code = 4788518121) 0.18 s MV Peak E Johnny (test code = 7129373631) 114.6 cm/s MV Peak A Johnny (test code = 7261808811) 106.0 cm/s E/A ratio (test code = 3611151638) ratio MV Prop V (test code = 7708732652) 36.10 cm/s Tapse (test code = 8128627829) 2.31 cm TR Peak Johnny (test code = 9926763479) 293.8 cm/s Triscuspid Valve Regurgitation Peak Gradient (test code = 0456616712) mmHg LVOT stroke volume (test code = 8645327332) 107.50 cm3 LVOT peak johnny (test code = 5075694975) 143.9 cm/s LVOT mn grad (test code = 3066417790) mmHg AV LVOT peak gradient (test code = 0572886581) mmHg LVOT peak VTI (test code = 0666573662) 32.7 cm LV V1 mean (test code = 8884256981) 96.10 cm/s Aortic valve mean velocity (test code = 5635628988) 125.9 cm/s Ao peak johnny (test code = 3339191508) 208.3 cm/s Ao VTI (test code = 8989140122) 42.4 cm AV area by cont VTI (test code = 3400229240) 2.5 cm2 AV area peak johnny (test code = 4372919999) 2.3 cm2 Ao max PG (test code = 8311825742) 17.40 mm[Hg] AV peak gradient (test code = 5006943507) mmHg AV valve area (test code = 0977525634) 2.50 cm2 AV mean gradient (test code = 9493563074) mmHg Radiology Study observation (narrative) (test code = 32465-6) MAJOR (test code = MAJOR) Table formatting [...] apical, parasternal and subcostal views were obtained. [facility] GLUCOSE (AUTOMATED)2022-06-29 17:20:48* Test Item Value Reference Range Interpretation Comme nts POCT GLU (test code = 1989837110) 206 mg/dL 70-110 H Lab Interpretation (test cod e = 08063-6) Abnormal [facility] GLUCOSE (AUTOMATED)2022-06-29 13:50:59* Test Item Value Reference Range Interpretation Comme nts POCT GLU (test code = 9527625792) 200 mg/dL 70-110 H Lab Interpretation (test cod e = 65096-0) Abnormal [facility] GLUCOSE (AUTOMATED)2022-06-29 07:09:24* Test Item Value Reference Range Interpretation Comme nts POCT GLU (test code = 3498021951) 196 mg/dL 70-110 H Lab Interpretation (test cod e = 63103-8) Abnormal [facility] GLUCOSE (AUTOMATED)2022-06-29 02:38:41* Test Item Value Reference Range Interpretation Comme nts POCT GLU (test code = 3650766640) 231 mg/dL 70-110 H Lab Interpretation (test cod e = 88907-5) Abnormal [facility] GLUCOSE (AUTOMATED)2022-06-28 22:33:13* Test Item Value Reference Range Interpretation Comme nts POCT GLU (test code = 1193102902) 179 mg/dL 70-110 H Lab Interpretation (test cod e = 29884-3) Abnormal [facility] GLUCOSE (AUTOMATED)2022-06-28 17:29:15* Test Item Value Reference Range Interpretation Comme nts POCT GLU (test code = 7914780566) 166 mg/dL 70-110 H Lab Interpretation (test cod e = 17202-9) Abnormal [facility] GLUCOSE (AUTOMATED)2022-06-28 13:43:31* Test Item Value Reference Range Interpretation Comme nts POCT GLU (test code = 7838066614) 178 mg/dL 70-110 H Lab Interpretation (test cod e = 04905-4) Abnormal [facility] GLUCOSE (AUTOMATED)2022-06-28 10:25:09* Test Item Value Reference Range Interpretation Comme nts POCT GLU (test code = 5477203749) 179 mg/dL 70-110 H Lab Interpretation (test cod e = 80554-5) Abnormal [facility] GLUCOSE (AUTOMATED)2022-06-28 05:58:08* Test Item Value Reference Range Interpretation Comme nts POCT GLU (test code = 4078004810) 211 mg/dL 70-110 H Lab Interpretation (test cod e = 36589-1) Abnormal [facility] GLUCOSE (AUTOMATED)2022-06-28 02:15:08* Test Item Value Reference Range Interpretation Comme nts POCT GLU (test code = 6082387040) 214 mg/dL 70-110 H Lab Interpretation (test cod e = 66415-8) Abnormal [facility] GLUCOSE (AUTOMATED)2022-06-27 22:33:11* Test Item Value Reference Range Interpretation Comme nts POCT GLU (test code = 5630905731) 213 mg/dL 70-110 H Lab Interpretation (test cod e = 17897-4) Abnormal [facility] GLUCOSE (AUTOMATED)2022-06-27 17:52:15* Test Item Value Reference Range Interpretation Comme nts POCT GLU (test code = 6584273427) 189 mg/dL 70-110 H Lab Interpretation (test cod e = 89460-9) Abnormal [facility] GLUCOSE (AUTOMATED)2022-06-27 14:05:18* Test Item Value Reference Range Interpretation Comme nts POCT GLU (test code = 2363953160) 116 mg/dL 70-110 H Lab Interpretation (test cod e = 87033-8) Abnormal [facility] GLUCOSE (AUTOMATED)2022-06-27 11:01:48* Test Item Value Reference Range Interpretation Comme nts POCT GLU (test code = 6155972823) 108 mg/dL 70-110 Lab Interpretation (test cod e = 19724-7) Normal [facility] GLUCOSE (AUTOMATED)2022-06-27 06:00:42* Test Item Value Reference Range Interpretation Comme nts POCT GLU (test code = 1569848388) 97 mg/dL 70-110 Lab Interpretation (test cod e = 04629-4) Normal [facility] GLUCOSE (AUTOMATED)2022-06-27 02:31:07* Test Item Value Reference Range Interpretation Comme nts POCT GLU (test code = 8478704404) 88 mg/dL 70-110 Lab Interpretation (test cod e = 10762-7) [facility] [id number] 18:50:59* Test Item Value Reference Range Interpretation Comments TROPONIN I (test code = 5378479070) 0.039 ng/mL See_Comment H [Automated message] The [...] of biotin. Lab Interpretation (test code = 65688-8) [facility]normal [facility] [id number] 18:47:58* Test Item Value Reference Range Interpretation Comme nts NT-proBNP (test code = 7149922156) 3840 pg/mL See_Comment H [Automated message] The system which generated this result transmitted reference range: <=450. The reference range was not used to interpret this result as normal/abnormal. MAJOR (test code = MAJOR) Biotin has been reported to cause a negative bias, interpret results relative to patient's use of biotin. Lab Interpretation (test code = 27056-8) [facility]2022-[facility]-24 18:39:19* Test Item Value Reference Range Interpretation Comme nts MAGNESIUM (test code = 7588517076) 1.9 mg/dL 1.7-2.4 Lab Interpretation (test cod e = 12410-4) Normal [facility]. METABOLIC PANEL (54327)2022-06-26 18:38:59* Test Item Value Reference Range Interpretation Comme nts NA (test code = 7032027958) 134 mmol/L 135-145 L K (test code = 2564164019) 4.0 mmol/L 3.5-5.0 CL (test code = 0828760859) 101 mmol/L 98-108 CO2 TOTAL (test code = 6166669886) 25 mmol/L 23-31 AGAP (test code = 8307702762) 2-16 BUN (test code = 6841232238) 23 mg/dL 7-23 GLUCOSE (test code = 0950533852) 80 mg/dL 70-110 CREATININE (test code = 0404864714) 1.44 mg/dL 0.50-1.04 H TOTAL BILI (test code = 4315921958) 1.1 mg/dL 0.1-1.1 CALCIUM (test code = 3411049451) 8.4 mg/dL 8.6-10.6 L T PROTEIN (test code = 6761476155) 6.4 g/dL 6.3-8.2 ALBUMIN (test code = 2724093628) 3.5 g/dL 3.5-5.0 ALK PHOS (test code = 4746202356) 28 U/L 34-122 L ALTv (test code = 1742-6) 20 U/L 5-35 AST(SGOT) (test code = 6464537317) 42 U/L 13-40 H eGFR (test code = 7560481541) mL/min/1.73m2 MAJOR (test code = MAJOR) Association [...] imaging tests). Lab Interpretation (test code = 11706-9) [facility] 18:38:39* Test Item Value Reference Range Interpretation Comme [facility] LIPASE (test code = 4376895974) 224 U/L 0-220 H Lab Interpretation (test cod e = 98971-7) [facility]normal [facility] PARTIAL THRMPLAS [id number] 18:31:19* Test Item Value Reference Range Interpretation Comme [facility] APTT Patient (test code = 3173-2) See_Comment [Automated message] The system which generated this result transmitted reference range: 23 - 38 Seconds. The reference range was not used to interpret this result as normal/abnormal. MAJOR (test code = MAJOR) The [facility] patient population mean normal value for aPTT is 30 seconds. Lab Interpretation (test code = 15007-8) Normal [facility] TIME / [id number] 18:29:17* Test Item Value Reference Range Interpretation [...] the indications. Lab Interpretation (test code = 99041-8) [facility]normal [facility] WITH [id number] 18:21:57* Test Item Value Reference Range Interpretation [...] 32.3 g/dL 31.6-35.1 RDW-SD (test code = 26374-3) 47.9 fL 39.0-49.9 RDW-CV (test code = 788-0) 17.0 % 12.0-15.5 H PLT (test code = 777-3) See_Comment [Automated messa ge] The system which generated this result transmitted reference range: 166 - 358 10*3/?L. The reference range was not used to interpret this result as normal/abnormal. MPV (test code = 91422-0) 9.8 fL 9.5-12.9 NRBC/100 WBC (test code = 5690352626) See_Comment [Automated me ssage] The system which generated this result transmitted reference range: 0.0 - 10.0 /100 WBCs. The reference range was not used to interpret this result as normal/abnormal. NRBC x10^3 (test code = 1651925149) See_Comment [Automated messa ge] The system which generated this result transmitted reference range: 10*3/?L. The reference range was not used to interpret this result as normal/abnormal. GRAN MAT (NEUT) % (test code = 770-8) 79.8 % IMM GRAN % (test code = 6575555126) 0.40 % LYMPH % (test code = 736-9) 10.3 % MONO % (test code = 5905-5) 8.9 % EOS % (test code = 713-8) 0.2 % BASO % (test code = 706-2) 0.4 % GRAN MAT x10^3(ANC) (test code = 7490270257) 4.11 10*3/uL 1.88-7.09 IMM GRAN x10^3 (test code = 5787011088) 0.00-0.06 LYMPH x10^3 (test code = 731-0) 0.53 10*3/uL 1.32-3.29 L MONO x10^3 (test code = 742-7) 0.46 10*3/uL 0.33-0.92 EOS x10^3 (test code = 711-2) 0.03-0.39 L BASO x10^3 (test code = 704-7) 0.01-0.07 Lab Interpretation (test code = 52470-4) [facility]normal [facility]-CoV-2 (COVID-19) Ag [Presence] in Respiratory specimen by Rapid [id number] 10:45:00* Test Item Value Reference Range Interpretation Comme nts SARS CoV 2 (test code = SARS CoV 2) negative [facility] Consult Notes Date/Time Note Provider Source 2023-02-21 12:00:00 Associated Order(s): CONSULT PS PASTORAL CARE Recycling Sorter visited with PT while rounding. PT received in bed awake. PT was alone. She has no family near. She has someone who is like a son to her who checks on her. PT is a . PT shared her family and health history. PT identifies a Anglican within the non-orthodoxy community. Recycling Sorter was a spiritual presence and personal financial representative offering active compassionate listening, creating a scared space where the PT could share her thoughts, emotions, and concerns. Recycling Sorter was an emotional presence as PT shed tears remembering her late . Recycling Sorter offered words of encouragement and prayed for PT. Additional Recycling Sorter support is available upon request. Chaplain Candice Michael [facility] Pastoral Care Department [phone] Candice Michael [facility] 2023-02-21 07:58:29 Associated Order(s): CONSULT CARDIOLOGY [facility] Cardiology Consult PCP: Brian Israel Date of [...] disease etc. the patient was brought to [facility] emergency room due to possible syncope, [...] (deep venous thrombosis) Hyperlipidemia Hypertension Follows with pulling machine operator Dr. Fuentes Hypothyroidism Lymphedema Muscle tear 2016 of right knee PAD (peripheral artery disease) Paroxysmal atrial fibrillation Type 2 diabetes mellitus Follows with application coordinator Dr. Andersen Past Surgical History: Procedure Laterality [...] Sulfa (Sulfonamide Antibiotics) Nausea and/or Vomiting 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, at rehab, tolerated fine with bendryl MEDICATIONS [...] mcg (0.1 %) nasal spray Use 1 [place] in each nostril in the morning and 1 [place] in the evening. Use in each nostril [...] Packet 1 Lancets (ACCU-CHEK MULTICLIX LANCET) [facility] Use as directed 3 Each 7 Insulin Hepzibah, Disposable, (BD INSULIN PEN NEEDLE UF) 29 [...] further assistance. Sushil Persaud MD, FAC, HARJINDER Tree Sapper, Division of Cardiology [facility] T [facility] - Health History and Physical Notes Date/Time [...] (deep venous thrombosis) Hyperlipidemia Hypertension Follows with pulling machine operator Dr. Fuentes Hypothyroidism Lymphedema Muscle tear 2016 of right knee PAD (peripheral artery disease) Paroxysmal atrial fibrillation Type 2 diabetes mellitus Follows with application coordinator Dr. Andersen Past Surgical History: Procedure Laterality [...] mcg (0.1 %) nasal spray Use 1 [place] in each nostril in the morning and 1 [place] in the evening. Use in each nostril [...] (CURAD NON-STICK PAD) 3 X 4 " [facility] Use as directed 1 Each 3 pantoprazole [...] Use as directed 3 Each 7 Insulin Hepzibah, Disposable, (BD INSULIN PEN NEEDLE UF) 29 [...] Sulfa (Sulfonamide Antibiotics) Nausea and/or Vomiting 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, at rehab, tolerated fine with bendryl Make [...] toes especially on the right side. Modified [place] Score 4 - Moderately severe disability; unable [...] We will schedule all of this at [facility] HOLD APIXIBAN 2 DAY PRIOR TO PROCEDURE [facility] 2023-02-20 23:33:58 Formatting of this n ote is different from the original. [facility] Hospitalist Admission H&P Date of Service: [...] (deep venous thrombosis) Hyperlipidemia Hypertension Follows with pulling machine operator Dr. Fuentes Hypothyroidism Lymphedema Muscle tear 2016 of right knee PAD (peripheral artery disease) Paroxysmal atrial fibrillation Type 2 diabetes mellitus Follows with application coordinator Dr. Andersen PAST SURGICAL HISTORY Past Surgical [...] Sulfa (Sulfonamide Antibiotics) Nausea and/or Vomiting 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, at rehab, tolerated fine with bendryl MEDICATIONS [...] MCG (0.1 %) NASAL SPRAY Use 1 [place] in each nostril in the morning and 1 [place] in the evening. Use in each nostril [...] a day, DX:E11.9 LANCETS (ACCU-CHEK MULTICLIX LANCET) [facility] Use as directed LATANOPROST (XALATAN) 0.005 % [...] high risk of morbidity and mortality. [place] RADIOLOGICAL ENGINEER was verified during stay Sam Meredith MD [facility] 2023-02-20 23:30:00 Formatting of this n ote is different from the original. [facility] Hospitalist Admission H&P Date of Service: [...] to get around. She followed up at [place] and was told that she may have [...] she advised them to bring her to [facility]. She was initially a little confused but [...] (deep venous thrombosis) Hyperlipidemia Hypertension Follows with pulling machine operator Dr. Fuentes Hypothyroidism Lymphedema Muscle tear 2016 of right knee PAD (peripheral artery disease) Paroxysmal atrial fibrillation Type 2 diabetes mellitus Follows with application coordinator Dr. Andersen PAST SURGICAL HISTORY Past Surgical [...] Sulfa (Sulfonamide Antibiotics) Nausea and/or Vomiting 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, at rehab, tolerated fine with bendryl MEDICATIONS [...] LANCET) Misc Comments: Reason for Stopping: Insulin Hepzibah, Disposable, (BD INSULIN PEN NEEDLE UF) 29 [...] user?: NO Patient will require Observation [place] RADIOLOGICAL ENGINEER was verified during stay Sam Meredith MD T [facility] Notes Date/Time Note Provider Source 2024-08-20 15:06:44 Notice received from [employer] for a non formulary medication. The patient was provided with a temporary supply of the following med: Tresiba Suggested alternatives: Insulin Degludec Please review and advise. [facility] 2024-08-16 11:50:55 Refer to telephone encounter dated 08/03/24. Patient notified that records are being requested and to contact Markos at [phone] for clarification of testing. All was verbalized understanding. [facility] 2024-08-16 11:31:13 Markos with [employer] is calling and is wanting to check the status of the fax request that was sent on 07-26-24. Markos states they are needing the pts chart notes for the last 6 months and states the pt has already had the required testing. Please advise. [facility] Giorgi Escalante [facility] 2024-08-15 14:50:34 Patient contacted and denied request for Comprehensive Neurological testing by [facility]. She requested copy of order be mailed to her and sent out on 08/15/2024 [facility] 2024-08-13 11:25:45 Images from the original note were not included. Psychiatry: Antidepressants Xrecrn3808/10/2024 06:38 AM Manual Review: Verify no changes in dose in the last 3 months Valid encounter within last 12 months Please review and refill if appropriate. Recent Visits Date Type Provider Dept 04/30/24 Office Visit lEsi Christian MD [facility] 04/03/24 [...] authorizing provider and meeting all other requirements UTIVE CHEF ASSISTANT Margarita Meyer RN [facility] 2024-08-03 14:57:09 Forms recd from [facility] requesting Neurology testing. LMTCB to confirm if patient requested testing. UTIVE CHEF ASSISTANT [facility] 2024-07-30 09:16:12 Images from the original note were not included. Notes: 06/26/24 Last Refilled: [facility] - [place], [place] - [address] AT [address] Recent Visits Date [...] Israel MD Last refill: 06/28/2024 Rx #: [id number] Provider Review Required Cifphc1107/29/2024 06:52 AM Protocol Details This refill cannot be delegated Valid encounter within last 12 months To be filled at: [facility] [place] [place] [facility] [address] EET Galaviz MA [facility] 2024-07-10 10:02:01 Images from the original note [...] Israel MD Last refill: 06/08/2024 Rx #: [id number] Anti-Platelets Ftcpqr8607/08/2024 06:35 AM Protocol Details Valid encounter within last 12 months HGB in normal range and within 360 days HCT in normal range and within 360 days PLT in normal range and within 360 days RBC in normal range and within 360 days To be filled at: [facility] [address] AT [address] Recent Visits Date Type [...] authorizing provider and meeting all other requirements UTIVE CHEF ASSISTANT [facility] 2024-06-28 12:30:34 Last Refilled: Disp Refills Start End CELSO TRESIBA FLEXTOUCH U-100 100 unit/mL (3 mL) InPn 15 mL 2 02/10/2024 -- No Sig: INJECT 32 UNITS UNDER THE SKIN ONCE EVERY MORNING. Sent to pharmacy as: Tresiba FlexTouch U-100 insulin 100 unit/mL (3 mL) subcutaneous pen (insulin degludec) Class: eRX Order: [id number] Date/Time Signed: 02/10/2024 13:05 E-Prescribing Status: Receipt [...] meeting all other requirements EET Espinosa RN [facility] 2024-06-25 15:02:38 Recent Visits Date Type Provider [...] pharmacy as: baclofen 10 mg tablet (LIORESAL) UTIVE CHEF ASSISTANT Dara Delgado MA [facility] 2024-06-19 14:22:46 Last Refilled: Disp Refills Start End CELSO METOPROLOL TARTRATE 25 mg tablet 90 tablet 1 12/09/2023 -- No Sig: TAKE ONE-HALF (1/2) TABLET(S) BY MOUTH TWICE A DAY (MORNING AND EVENING). Sent to pharmacy as: metoprolol tartrate 25 mg tablet (LOPRESSOR) Class: eRX Notes to Pharmacy: LAST PRESCRIBED BY: DR. Dutton/Marycarmen Amaya/Crystal. Order: [id number] Date/Time Signed: 12/09/2023 10:35 E-Prescribing Status: Receipt confirmed by pharmacy (12/09/2023 10:36 AM CDT) Notes: Recent Visits Date Type Provider Dept 04/30/24 Office Visit Elsi Christian MD [facility] 04/03/24 Office Visit Elsi Christian MD [facility] 01/31/24 Office Visit Jamshid Early MD [facility] Cardiology Faculty 01/31/24 Office Visit Brian [...] 01/16/2024 0.33 BASO x10 3 01/16/2024 0.05 Banana Ripening Room Supervisor Visit on 11/11/2023 Component Date Value NA [...] eGFR 10/30/2023 51.6 LACTIC ACID 10/30/2023 1.21 Banana Ripening Room Supervisor Visit on 09/21/2023 Component Date Value NA [...] 0.49 (H) BASO x10 3 09/21/2023 0.06 Banana Ripening Room Supervisor Visit on 06/22/2023 Component Date Value WBC [...] NT-proBNP 06/22/2023 2,390 (H) MAGNESIUM 06/22/2023 2.0 UTIVE CHEF ASSISTANT Martha Espinosa RN [facility] 2024-06-18 14:38:20 Images from the original note [...] Israel MD Last refill: 03/20/2024 Rx #: [id number] Cardiovascular: Antilipid - HMG-CoA Reductase Inhibitors Uktpei1606/17/2024 06:34 AM Protocol Details Total Cholesterol within 360 days LDL within 360 days HDL within 360 days Triglycerides within 360 days Valid encounter within last 12 months AST in normal range and within 360 days ALT in normal range and within 360 days To be filled at: [facility] [address] Recent Visits Date Type [...] authorizing provider and meeting all other requirements [facility] 2024-06-12 12:49:02 Error EET Jacobs [facility] 2024-06-05 17:01:27 Forms resent on 06/05/2024 [facility] 2024-06-05 13:14:28 Blaze with [employer] called requesting for forms to be faxed GI. UTIVE CHEF ASSISTANT Berna Boss [facility] 2024-06-05 10:55:00 Blaze with [facility] calling in to check on status of Forms for pt's Freestyle Kandi Monitor. per Aden nothing was received just yet. They are still needing clinical notes sent over as soon as possible. Per Aden these forms are time sensitive and need to be sent by the end of today. Please resend forms to both FAX#---[phone] ALTERNATIVE FAX# --- [phone] [facility] Christiane Kelly [facility] 2024-06-05 09:27:44 OV attached and forms resent on 06/05/2024 [facility] 2024-06-04 11:45:50 [facility] request the last office visit to go with the form that was signed and faxed for the freestyle kandi monitor. This is time sensitive and is needed by the end of today. She asked that this be marked as urgent. FAX#---[phone] Please Advise. [facility] Gilda Euceda [facility] 2024-06-01 08:34:06 Images from the original note [...] RAZIA Garvin Last refill: 03/03/2024 Rx #: [id number] Endocrinology: Hypothyroid Agents Muncwb0705/31/2024 06:51 AM Protocol Details Manual Review: ENT [...] RAZIA Garvin Last refill: 03/03/2024 Rx #: [id number] Gastroenterology: Antiulcer - Proton Pump Inhibitors Tbmdwn1005/31/2024 06:51 AM Protocol Details Valid encounter within last 12 months To be filled at: [facility] [place], [place] - [address] [place] [address] AT [address] Recent Visits Date Type [...] authorizing provider and meeting all other requirements [facility] Allison Vasquez MA [facility] 2024-05-28 09:00:31 Please review and sign if [...] of proximal vein of right lower extremity [facility] 2024-05-25 12:18:30 Received Prior Authorization from [employer], have placed in provider's box for review. UTIVE CHEF ASSISTANT Tara Rubio [facility] 2024-05-15 15:16:58 Received Neuro Lab report from [facility]. Placed in Providers box. EET Soto [facility] 2024-05-15 08:32:02 Duplicate encounter. Closing out. [facility] 2024-05-15 08:31:09 Please review. Refer to telephone encounter from 05/14/24 [facility] 2024-05-14 17:19:45 Ivett Bran is a 78 [...] took their rx a little before the [facility] nurse arrived but today they've felt better than they have in a while and just wanted to update provider on condition. EET Dyson [facility] 2024-05-14 17:03:35 Attempted to call to inquire about patient's symptoms, no answer, left VM [facility] 2024-05-14 14:11:01 ATC patient to f/u for any s/s of HTN LMTCB Lou Tomlin LVN 05/14/2024 Please review RATNA 04/30/24 NOV 05/28/24 [facility] 2024-05-14 13:52:28 Apple bran [facility] is notifying the clinic that the patient's blood pressure was 175/77. Patient had taken blood pressure medication before blood pressure was taken. EET Frank [facility] 2024-05-11 14:47:18 Wound care orders faxed to [facility]. EET Meyer RN [facility] 2024-05-10 11:20:20 [facility] [address] to let dr know pt has a wound that has reopened on her right ankle. They would like orders wound care put in for this pt UTIVE CHEF ASSISTANT Lyndsay Parson [facility] 2024-05-09 16:13:07 Esther was under Oncology. Asking for refills. Will route to Dr. Early for approval. UTIVE CHEF ASSISTANT Too Souza MA [facility] 2024-05-09 13:39:41 Last Refilled: Disp Refills Start End CELSO CLOPIDOGREL 75 mg tablet 30 tablet 0 03/21/2024 -- No Sig: TAKE ONE (1) TABLET(S) BY MOUTH ONCE A DAY IN THE MORNING. Sent to pharmacy as: clopidogreL 75 mg tablet (PLAVIX) Class: eRX Order: [id number] Date/Time Signed: 03/21/2024 08:23 E-Prescribing Status: Receipt [...] authorizing provider and meeting all other requirements UTIVE CHEF ASSISTANT Olga Warner [facility] 2024-05-02 16:01:46 Ivett Bran is a 78 year old female Patient is calling to state that she will be unable to see a wound care doctor in [place] due to the distance from her home and her current condition making travel very difficult. Patient states that she has nurses that are providing wound care. Please advise. Lj Conde [facility] 2024-05-02 09:10:14 Spoke with Nesha nurse and clarified wound care instructions per Dr. Christian: Once daily,Cleanse with normal SN, Pat dry, apply santyl, cover with dry 4x4 gauze and secure with tape. T Martha Espinosa RN [facility] 2024-05-02 08:59:14 Referral sent to [facility] F:[phone] T Martha Espinosa RN [facility] 2024-05-02 08:42:19 Ivett Bran is a 78 year old female Nesha from (wound care) is calling needing clarifications on wound care order. Need to clarify Frequency of dressing change, if you want to use santyl cream and do they need to do wet to dry dressing. P: [phone] Please advise Jay Wen [facility] 2024-05-01 15:12:24 Nesha with [facility] ([facility] [phone] [facility] 2024-05-01 14:51:46 Ivett Bran is a 78 year old female and Nesha is the pts nurse calling about the wound care orders faxed yesterday 04/30/24. The orders have not been processed yet for the facility and N[facility]ha is asking for verbal orders for today's home visit. Anna Guadarrama [facility] 2024-04-27 09:47:45 Name: Ivett Bran Date: 04/30/2024 Status: Phillip Arrival Time: 12:45 PM Length: 20 Visit Type: ESTABLISHED SICK VISIT [882] Copay: Provider: Elsi Christian MD Department: [facility] Spoke with the patient she is unable to come in today. She's scheduled to come in on Tuesday. Ochoa Mcguire [facility] 2024-04-27 07:37:32 Last Refilled: Disp Refills Start End CELSO furosemide 40 mg tablet 180 tablet 0 01/31/2024 -- No Sig: TAKE ONE (1) TABLET BY MOUTH EVERY MORNING AND EVENING. Sent to pharmacy as: furosemide 40 mg tablet (LASIX) Class: eRX Order: [id number] Date/Time Signed: 01/31/2024 09:33 E-Prescribing Status: Receipt confirmed by pharmacy (01/31/2024 9:33 AM CDT) Notes: Please review Recent Visits Date Type Provider Dept 04/03/24 Office Visit Elsi Christian MD [facility] 01/31/24 Office Visit Brian Israel MD [facility] 12/27/23 Office Visit rBian Israel MD [facility] 11/11/23 [...] 01/16/2024 0.33 BASO x10 3 01/16/2024 0.05 Banana Ripening Room Supervisor Visit on 11/11/2023 Component Date Value NA [...] eGFR 10/30/2023 51.6 LACTIC ACID 10/30/2023 1.21 Banana Ripening Room Supervisor Visit on 09/21/2023 Component Date Value NA [...] 0.49 (H) BASO x10 3 09/21/2023 0.06 Banana Ripening Room Supervisor Visit on 06/22/2023 Component Date Value WBC [...] HBA1C 05/23/2023 8.7 (A) Martha Espinosa RN [facility] 2024-04-27 06:19:00 Please call Mrs. Bran to [...] way. Ms. Bran said the PT from [facility] saw it this morning and sent [...] Thanks so much for your assistance" T [facility] 2024-04-26 16:01:35 Please review and advise. RATNA 04/03/24 NOV 07/16/24 T [facility] 2024-04-26 15:18:41 CHRISSY Melgar Nurse [employer] Technical Assistant with [facility] is wanting to notify Dr Israel that [...] not currently with pt. T Norma Berrios [facility] 2024-04-26 08:22:53 Medication refilled per policy: Last [...] of proximal vein of right lower extremity [facility] 2024-04-19 10:49:04 Pt has NM stress test scheduled for next week. Ann Hassan RN [facility] 2024-04-18 16:20:23 Ivett Bran is a 78 year old female Pt needing an Stress Test Scheduled. Eugene Mercado [facility] 2024-04-18 13:02:50 Forms faxed on 04/18/2024 [facility] 2024-04-18 11:40:42 Ivett with [employer] is calling to follow up on the forms from [facility]. Ivett said the best fax to send it to them would be [phone]. Please advise. Giorgi Escalante [facility] 2024-03-29 15:57:54 Comprehensive Neurology Testing requisition form received and pending Provider review. RATNA 01/31/24 NOV 04/03/24-Dr. Christian T [facility] 2024-03-27 10:56:55 Received written order from [facility], requesting Providers signature. Placed in Providers box. Amrita Soto [facility] 2024-03-21 08:11:44 Duplicate encounter. Refer to telephone encounter dated 03/14/24. Closing out. [facility] 2024-03-20 09:25:44 Images from the original note [...] Israel MD Last refill: 12/22/2023 Rx #: [id number] Cardiovascular: Antilipid - HMG-CoA Reductase Inhibitors Nfxqaw7603/20/2024 08:36 AM Protocol Details Total Cholesterol within 360 days LDL within 360 days HDL within 360 days Triglycerides within 360 days Valid encounter within last 12 months AST in normal range and within 360 days ALT in normal range and within 360 days To be filled at: [facility] [place], [place] - [address] [place] [address] AT [address] Recent Visits Date Type [...] 03/27/24 Appointment Elsi Christian MD [facility] Showing future appointments within next 150 days with a meds authorizing provider and meeting all other requirements [facility] 2024-03-17 13:40:07 Received Comprehensive Neurology Testing Requisition Form from [employer] and have placed in provider's box. Tara Rubio [facility] 2024-03-15 13:31:45 Form for Comprehensive Neurology Testing recd from [facility] and pending Provider review. RATNA 01/31/24-Lindy NOV 03/20/24-Michael [facility] 2024-03-09 17:31:17 Continue to monitor BP. Bring log to next OV. T [facility] 2024-03-09 16:15:46 Patient checked BP at time of call and it was 157/72 HR 87. She stated has had an ongoing headache r/t sinus pressure and denied worsening. She also denied changes to DVT and reported compliance with Eliquis. Please review and advise. 03/13/24 T [facility] 2024-03-09 15:49:02 [facility] calling to let dr know bp is 169/76 and they also have headache when seen in home. Pt also has a clot in the right leg and the want to know if pt needs therapy Lyndsay Kim Eb [facility] 2024-03-01 15:55:57 Dr. Early reviwed and completed for oral surgery. Faxed back officer visit notes. Ankit Brooke MA [facility] 2024-03-01 09:57:40 Received cardiac clearance from Dr. Arteaga's office, placed in Dr. Early's folder for review. Thank you. Suzan Ramos MA [facility] 2024-02-22 09:33:18 Images from the original note were not included. Notes: 12/22/23 Last Refilled: [place], [place] - [address] [place] [address] [address] Recent Visits Date Type [...] Provider Dept 03/13/24 Appointment Brian Israel MD [facility] Showing future appointments within next 150 [...] Israel MD Last refill: 01/20/2024 Rx #: [id number] Provider Review Required Dnlvyx0202/22/2024 06:40 AM Protocol Details This refill cannot be delegated Valid encounter within last 12 months To be filled at: [facility] [address] Sirena Galaviz MA [facility] 2024-02-15 09:11:01 Spoke with [facility]. Will fax surgery clearance for Dr. Soares Evita Blanchard MA [facility] 2024-02-10 09:18:15 [facility] requesting clearance to hold blood thinners for planned extractions. [facility]. [phone] Fx. [phone] Early, "Please note patient taking Plavix from the vascular standpoint. Would recommend getting vascular surgery clearance also to stopping the Plavix perioperatively." [facility] 2024-02-10 09:08:06 Discussed recommendations with patient she verbalized understanding via teach back. Faxed Dr. Early's note to [facility]. Message sent to vascular regarding holding Plavix. [facility] 2024-02-09 21:49:46 Last office note updated. Please [...] perioperatively. Albert Early MD 02/09/2024 9:46 PM Guest Service Supervisor, Division of Cardiology [facility] T [facility] 2024-02-09 13:13:42 Fax form received. Placed in MDs inbox folder for chart review. Too Souza MA [facility] [employer] 2024-02-09 11:01:35 Images from the original note were not included. Notes: 09/28/23 Last Refilled: [facility] [place] - [address] AT [address] Recent Visits Date Type [...] Wyatt MD Last refill: 12/26/2023 Rx #: [id number] Endocrinology: Diabetes - Insulins Gitvyg2502/09/2024 06:49 AM Protocol Details Manual review: Staff refilling for [facility], Cr lab not required to refill Cr in normal range and within 360 days Valid encounter within last 12 months HBA1C within 180 days To be filled at: [facility] [address] [employer] AT [address] Sirena Galaviz MA [facility] 2024-02-09 09:49:07 Ivett Bran is a 78 year old female [facility] calling to cardiac clearance for pt to have dental extractions. Pt takes blood thinners. Please advise. Mariely is sending request in today. Please send to [facility]. [phone] Fx. [phone] Steven Bustos [facility] 2024-02-01 15:56:53 Anabella with [facility] is informing the clinic that the patients blood sugar is 311. Patient had a hamburger and onion rings for dinner and she has not taking her insulin today. Insulin was administered during visit. Dileep Frank [facility] 2024-01-30 16:55:49 Images from the original note were not included. Cr not in range Notes: 06/24/23 Last Refilled: [facility] [address] Recent Visits Date Type Provider Dept 12/27/23 Office Visit Brian Israel MD [facility] 11/11/23 Office Visit Brian Israel MD [facility] 07/08/23 Office Visit Brian Israel MD [facility] 06/06/23 Office Visit Nheal Titus FNP [facility] 05/05/23 [...] Early MD Last refill: 10/28/2023 Rx #: [id number] Cardiovascular: Loop Diuretics Rpfkkq2801/29/2024 06:50 AM Protocol Details Cr in normal range and within 180 days Valid encounter within last 12 months K in normal range and within 180 days To be filled at: [facility] [address] AT [address] Sirena Galaviz MA [facility] 2024-01-17 15:46:39 TRANSITIONAL CARE MANAGEMENT ASSESSMENT 01/17/2024 Ivett Bran [id number] Ivett Bran is a 78 year old /White female was admitted on 01/16/24 to [facility]. She was discharged on 01/16/24 with discharge disposition of HR- Routine Discharge. Admitting Physician: Discharge Diagnosis: SOB (shortness of breath) Cardiomegaly Acute pulmonary edema No linked episodes TCM Swg-maiu-hq-face outreach documentation: Future Appointments: Future Appointments Provider Department Dept Phone 01/30/2024 10:30 AM Jamshid Early MD [facility] Cardiology, [facility] [phone] 01/31/2024 10:40 AM Brian Israel MD [facility] [phone] 03/08/2024 9:40 AM Xenia Lomeli MD [facility] Medical Oncology, [facility] [phone] 04/10/2024 1:00 PM Jayden Mitchell MD [facility] Endocrinology, [facility] [phone] Transition CM attempted to contact patient x2. CM left a discreet voicemail explaining purpose of call and call back information. Abigail Ley RN, MSN, MEDSUR-, CCRN, CCM Transitions of Instructor Of Nursing Proficient Infrastructure Technician Ambulatory Referral Coordination Office: [phone] Abigail Ley RN [facility] 2024-01-17 11:24:39 CM LVM to return call. Will attempt again at a later time. [facility] 2024-01-16 20:28:09 Pt given printed and [...] resp reg unlabored, skin w/d, pt with [facility] on stretcher, in no apparent distress, Mitesh Warner RN [facility] 2024-01-16 18:54:57 Nurse Report Report given to CHRISSY Warner. Chief complaint, assessment findings, infusion verify and orders reviewed. Plan of care discussed with both nurses. Lucia Rodriguez RN Lucia Rodriguez RN [facility] 2024-01-16 15:52:55 Pt arrived via pov c/o SOB per daughter in law that started today. Pt is currently on antibiotics for UTI. Ann Hernadez RN [facility] 2023-12-22 13:40:29 Sent. [facility] 2023-12-22 11:10:39 Please review and refill if appropriate [facility] 2023-12-22 10:01:39 Copied from [facility] #[id number]. Topic: Clinical - Order >> Dec 22, 2023 10:00 AM Patient Business Mgr wrote: Pts caregiver Flora is calling and states the pt is needing a refill on her baclofen 10 mg. Flora says the pt is out of this med and [facility] has been trying to get it filled since 12-08-23. Please advise on refill, thank you! [facility] [place], [place] - [address] [facility] AT [address] [facility] [address] Giorgi Escalante [facility] 2023-12-09 10:35:10 Last Refilled: metoprolol tartrate 25 mg tablet 90 tablet 1 07/20/2022 -- No Sig: Take 0.5 tablets by mouth in the morning and 0.5 tablets in the evening. Sent to pharmacy as: metoprolol tartrate 25 mg tablet (LOPRESSOR) Class: eRX Route: Oral Order: [id number] Date/Time Signed: 07/20/2022 15:39 E-Prescribing Status: Receipt confirmed by pharmacy (07/20/2022 3:39 PM EXECUTIVE CHEF ASSISTANT) Recent Visits Date Type Provider Dept 11/11/23 Office Visit Brian Israel MD [facility] 09/21/23 Office Visit Jamshid Early MD [facility] Cardiology Faculty 07/13/23 Office Visit David Lima MD [facility] Cardiology Faculty 07/08/23 Office Visit Brian Israel MD [facility] 06/22/23 Office Visit Jamshid Early MD [facility] Cardiology Faculty 06/06/23 Office Visit Nehal Titsu FNP [facility] 05/05/23 Office Visit Brian Israel MD [facility] 04/27/23 Office Visit David Lima MD [facility] Cardiology Faculty 03/08/23 Office Visit Brian Israel MD [facility] 01/18/23 Office Visit Brian Israel MD [facility] Showing recent visits within past 540 days with a meds authorizing provider and meeting all other requirements Future Appointments Date Type Provider Dept 12/16/23 Appointment Jamshid Early MD [facility] Cardiology Faculty 12/27/23 Appointment Brian Israel MD [facility] Showing future appointments within next 150 days with a meds authorizing provider and meeting all other requirements Olga Warner [facility] 2023-12-07 07:03:02 Notes: Please Review Last [...] to Pharmacy: Sending Erx refill request Order: [id number] Date/Time Signed: 11/01/2023 12:32 E-Prescribing Status: Receipt [...] and meeting all other requirements Olga Warner [facility] 2023-12-06 14:41:51 Spoke with she doesn't know if she wants to go to ER, will make a decision in a few days and let us know. Olga Warner [facility] 2023-12-06 13:26:04 I recommend ER evaluation. She has a complicated medical history, and I am worried she did not improve on the antibiotics I sent. I want her to be evaluated thoroughly and quickly. Best, Dr. Israel [facility] 2023-12-06 12:39:31 Copied from [facility] #[id number]. Topic: Clinical - Medical Advice >> Dec 06, 2023 12:38 PM Patient Business Mgr wrote: Ivett Bran is a 77 year old female [facility] is calling back to speak with clinical staff; she is concerned because Pt still is not feeling any better. Please advise. Essence Marino [facility] 2023-12-05 16:45:21 Please review and advise. [facility] 2023-12-05 13:30:29 Copied from [facility] #[id number]. Topic: Clinical - Medical Advice >> Dec 05, 2023 1:28 PM Patient Business Mgr wrote: Lilliam with [employer] is notifying the clinic that the patient finished Antibiotics for bladder infection. Patient is nauseated and throwing up and is not feeling well. Urine is yellow and cloudy and has an odor. Please advise. Lilliam is not with the patient. Dileep Frank [facility] 2023-11-21 15:30:35 Called pt, said she was nauseated prior to abx. Sent Zofran. Will add on to clinic day tomorrow if she feels worse. [facility] 2023-11-21 14:51:25 Please review and advise. Martha Espinosa RN [facility] 2023-11-21 13:20:55 Copied from [facility] #[id number]. Topic: Clinical - Medical Advice >> November 21, 2023 1:19 PM Patient Business Mgr wrote: Lilliam with [facility] states the pt has been throwing up and feeling nauseous do to the antibiotics for her UTI. Lilliam is asking if something can be called into the pharmacy to help, please advise. Lilliam said to call the pt back at: [phone] [facility] [place], [place] - [address] [place] [address] [address] [facility] [address] [facility] [address] Giorgi Escalante [facility] 2023-11-14 12:00:00 Patient presented with specimen for drop-off and was identified by and name. Collection information/ total volume were documented accordingly. The following specimens were sent to [facility] laboratories per lab order on 11/14/2023 : 24 hour urine Random urine 1 Stool Swab Other [facility] 2023-11-11 12:15:00 Images from the original note were not included. Venipuncture collection performed by clean technique on the left anticubitus. Total of 1 attempts were made. Slight pressure and a bandage/dressing were applied to the site(s). The patient experienced no complications. The following specimens were processed according to instructions and sent to [facility] laboratories per lab order on 11/11/2023 : [...] Urine Culture Aptima tube Other urine T [facility] 2023-11-11 10:40:00 Addended by: BRIAN ISRAEL on: 11/11/2023 02:16 PM Modules accepted: Level of Service T [facility] 2023-11-08 08:37:03 FYI T Arcelia Dumont LVN [facility] 2023-11-07 14:30:08 Ivett Bran is a 77 year old female and Mare a nurse with [facility] is calling about the pts blood sugar levels over the weekend while executive receptionist for Wound Care. Mare stated that the [...] her about taking the insulin. Anna Guadarrama [facility] 2023-11-03 15:33:19 Images from the original [...] or concerns? no VIPIN Angulo, RN, CCRN Instructor Of Nursing, Transitions of Care [email or web address] Bridgette Black RN [facility] 2023-11-01 13:46:17 Corrected and resent Yolanda Solomon LVN [facility] 2023-11-01 07:27:20 Notes: Please Review Last [...] to Pharmacy: Sending Erx refill request Order: [id number] Date/Time Signed: 09/05/2023 09:30 E-Prescribing Status: Receipt confirmed by pharmacy (09/05/2023 9:30 AM EXECUTIVE CHEF ASSISTANT Recent Visits Date Type Provider Dept 07/08/23 [...] and meeting all other requirements Olga Warner [facility] 2023-10-30 17:38:55 [facility] home. Follow up with pcp. Verbalized understanding. Signed paper work for dc. Colten Miranda RN [facility] 2023-10-30 14:33:31 Patient arrived in wheelchair with caregiver c/o of a diabetic leg wound. Home health nurse came out today to do wound care and the nurse di not like the coloring of the wound per patient and wanted her to get the wound checked out. Lucia Rodriguez RN [facility] 2023-10-28 09:20:55 Ivett Bran is a 77 year old [place] [facility] is calling to request clarification for semaglutide (OZEMPIC) 2 mg/dose (8 mg/3 mL) PnIj, Pharmacist states, prescription was sent without directions, Please advise [facility] [address] [place] [employer] AT [place] [address] Anabella Almonte [facility] 2023-10-27 11:45:31 Ivett Bran is a 77 year old female [facility] pharmacy is calling for directions on Ozempic. Please call [facility] [address] [address] Ana Kelly [facility] 2023-10-27 09:59:32 RATNA 05/23/23 NOV 11/22/23 Patient's dose increased by Dr. Haynes on 07/12/23 to 2mg weekly. Yolanda Solomon LVN [facility] 2023-10-27 07:45:12 Images from the original [...] Israel MD Last refill: 07/04/2023 Rx #: [id number] Controlled Substance Cecyky2410/26/2023 07:26 PM Protocol Details Valid encounter within last 3 months This refill cannot be delegated Pain agreement on file To be filled at: [facility] [address] AT [address] Recent Visits Date Type Provider Dept 07/08/23 [...] meeting all other requirements Arcelia Dumont LVN [facility] 2023-10-14 13:16:06 Ivett Bran is a 77 year old female patient had a fall/stumble earlier in the week had a tear in skin on elbow, but wound is fine already scabbed over. Please call with any questions. [phone] Talia Garcia [facility] 2023-10-11 14:27:36 Medical records request form received from [employer] faxed to HIM to process Zeenat Bobo [facility] 2023-10-10 11:30:[address] in provider Nehal Tacho box. Singed and faxed over today Sirena Galaviz MA [facility] 2023-09-28 08:23:06 Images from the original [...] Israel MD Last refill: 08/15/2023 Rx #: [id number] Endocrinology: Diabetes - Insulins Vtuxbx3209/28/2023 06:43 AM Protocol Details Manual review: Staff refilling for [facility], Cr lab not required to refill Cr in normal range and within 360 days Valid encounter within last 12 months HBA1C within 180 days To be filled at: [facility] [place], [place] - [address] [place] [address] & [address] CREATININE (mg/dL) Date Value [...] meeting all other requirements Arcelia Dumont LVN [facility] 2023-09-23 11:41:50 Looks like she is on 40 mg? Has dose been changed? Shahzad Wyatt MD FM-FAMILY MEDICINE STAFF [facility] 2023-09-22 13:41:22 Images from the original [...] Israel MD Last refill: 02/25/2023 Rx #: [id number] Cardiovascular: Antilipid - HMG-CoA Reductase Inhibitors Egqsde0509/22/2023 01:23 PM Protocol Details Valid encounter within last 12 months Total Cholesterol within 360 days LDL within 360 days HDL within 360 days Triglycerides within 360 days AST in normal range and within 360 days ALT in normal range and within 360 days To be filled at: [facility] [address] AT [address] Recent Visits Date Type Provider Dept 07/08/23 [...] meeting all other requirements Arcelia Dumont LVN [facility] 2023-09-21 10:35:05 Dionne negron to have form refaxed will place in provider bx once received T [facility] 2023-09-21 10:30:00 Images from the original note were not included. Venipuncture collection performed by clean technique on the left anticubitus. Total of 1 attempts were made. Slight pressure and a bandage/dressing were applied to the site(s). The patient experienced no complications. The following specimens were processed according to instructions and sent to [facility] laboratories per lab order on 09/21/2023 : LT BLUE SST 1 RED LAV 1 PPT DK GREEN (LiHep) DK GREEN (SodH) DERAS DK BLUE (K2) DK BLUE (S) ACD Blood Culture NIPT/NTD Early orders per pt request T [facility] 2023-09-20 09:57:33 Attempted to contact migdalia no answer lmtcb T [facility] 2023-09-15 11:47:23 Ivett Bran is a 77 year old female and Migdalia from [employer] is calling to check on order request. Was sent through Fax on 09/07/23 and has not received any updates on status please call to confirm if received and being completed. - States that it is time sensitive for the orders Anna Guadarrama [facility] 2023-09-12 14:54:04 Migdalia with [employer] is checking the status of a fax sent on 09/07/23 and to please send fax back she said as soon as possible. Norma Berrios [facility] 2023-09-07 15:23:18 Ivett Bran is a 77 year old female Migdalia with Lab service called because she faxed over a lab order this morning and wanted to know if the clinic received it. EET Muñoz [facility] 2023-09-02 15:05:10 Spoke Anabella HH nurse and advised her per covering provider Razia Garvin patient would need to be seen in office to be treated. She verbalized understanding and will let the patient know. Arcelia Dumont LVN 09/02/2023 3:06 PM UTIVE CHEF ASSISTANT Arcelia Dumont [facility] 2023-09-02 14:57:54 Pts provider is out of office. R/t pts hx and vomiting all night , its best she be evaluated to see what's causing her to vomit. [facility] 2023-09-02 14:53:47 Can you please review UTIVE CHEF ASSISTANT Arcelia Dumont [facility] 2023-09-02 14:41:15 Ivett Bran is a 77 year old female Anabella called back to see the status of the medication. The pt needs something for vomiting and she has chest congestion. The pt is in a wheel chair and can not come into the clinic. Rsp 09/01 EET Fu [facility] 2023-09-02 14:02:36 Please review and advise. Recent Visits Date Type Provider Dept 07/08/23 Office Visit Brian Israel MD Ang-Db [facility] Med 06/06/23 Office Visit Nehal Titus FNP [...] authorizing provider and meeting all other requirements UTIVE CHEF ASSISTANT [facility] 2023-09-02 13:55:15 Ivett Bran is a 77 year old female [place], 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 She is requesting for PCP to prescribe something to help her stomach. If there are any questions please call [phone]. UTIVE CHEF ASSISTANT Berna Boss [facility] 2023-08-24 09:19:00 Regardin yr female cloudy urine, and strong odor x 2 days ----- Message from Ron Ramos sent at 08/24/2023 9:17 AM EXECUTIVE CHEF ASSISTANT ----- Ivett Bran is a 77 year old female, customer care consultant with pt calling Specific Symptoms: cloudy urine, and strong odor Specific Duration: x 2 days - Declined apt or UC, requesting UTI meds, advised nurses cannot prescribe up to providers discretion EET Bailey RN [facility] 2023-08-24 09:19:00 Adult Triage Assessment Last [...] Care if symptoms worsen Simba LEW, RN [facility] Access Center Reason for Disposition Bad or foul-smelling urine Protocols used: Urinary [id number]-ZR [facility] 2023-08-24 09:19:00 Needs to see someone ER [facility]-FAMILY MEDICINE STAFF [facility] 2023-08-24 09:19:00 [facility] 2023-08-24 09:19:00 Notified caregiver office visit is required as Dr. Israel is out on maternity leave. She has active standing orders for UA and UC as patient has recurrent infections and is bed bound. They will bring by sample tomorrow. Arcelia Dumont LVN 08/24/2023 1:28 PM EET Dumont LVN [facility] 2023-08-23 10:32:06 Images from the original note were not included. Notified caregiver Flora sasha Early: Jamshid Early MD P Cardiology Nurse Short paroxysmal A-fib episodes noted. Baseline artifact noted in the event monitor. No other significant arrhythmias. Follow-up with EP as already scheduled this month. Verbal understanding. EET Acuna MA [facility] 2023-08-22 09:27:04 Medication refilled per policy: Last office visit: 07/08/23 Next office visit: 11/11/23 Requested Prescriptions Pending Prescriptions Disp Refills ESCITALOPRAM OXALATE 10 mg tablet [Pharmacy Med Name: Escitalopram 10mg Tablet] 90 tablet 3 Sig: TAKE ONE (1) TABLET(S) BY MOUTH EVERY MORNING. Last fill date: 08/31/22 Notes: Depression, unspecified depression type [facility] 2023-08-05 15:37:51 Attempted to contact patient no answer contacted pharmacy who stated she picked it up 07/14/2023 [facility] 2023-07-21 13:04:51 Dr. Haynes ordered it 07/12/23 to [facility] in [place]. Please verify w/ patient/pharmacy. Best, Dr. Israel [facility] 2023-07-20 11:03:16 Patient requesting refill on Ozempic 2mg/dose 8mg3ml pen. UTIVE CHEF ASSISTANT [facility] 2023-07-18 12:21:23 Recent Visits Date [...] pharmacy as: traZODone 50 mg tablet (DESYREL) [facility] Dara Delgado MA [facility] 2023-07-14 15:44:11 Called patient to inquire how she is feeling. Stated that she has been having issues keeping the monitor stuck to her, and is having skin irritation. Reminded to call the number on the inside of the box to have [facility] send some hypoallergenic patches to provide better comfort, no c/o dizziness or lightheadedness EET Gallagher RN [facility] 2023-07-14 12:49:54 [employer] strips reviewed. Noted to have atrial fibrillation with controlled ventricular response. Will continue to monitor. UTIVE CHEF ASSISTANT [facility] 2023-07-14 08:06:27 Received monitor readings from [employer] will put into Dr. Early folder for review. EET Bob MA [facility] 2023-07-13 16:26:17 PA submitted to [facility]. Awaiting response EET Solomon LVN [facility] 2023-07-13 12:17:33 [facility] called to notify that at 1028 AM today patient went into A-fib 70 bpm as noted on the event monitor Stated that there is some artifact noted Routed to Dr Early for advice EET Gallagher RN [facility] 2023-07-13 11:45:53 Images from the original note were not included. EET Ahn [facility] 2023-07-13 08:30:00 30-day event monitor applied to patient, tolerated well. Baseline tracing sent/confirmed by company. Instructed on recording manual events, wear, care and return of device; understanding verbalized via teach back. Monitor to be returned to ([facility]) on 08/13/23. EET Gallagher RN [facility] 2023-07-12 13:34:06 RATNA 05/23/23 NOV 11/22/23 Per RATNA note: Varunallison Jared Rahmanshabnam CHICKEN CATCHER [facility] 2023-07-11 16:39:08 Images from the original note were not included. Last Refilled: 01/18/23 Notes: [facility] [address] AT [place] [address] Recent Visits Date Type [...] refill: 01/18/2023 Provider Review Required - nystatin Gwkzub8207/11/2023 04:24 PM Protocol Details This refill cannot be delegated Valid encounter within last 12 months To be filled at: [facility] [place] - [place], [place] - [address] AT [address] [facility] Sirena Galaviz MA [facility] 2023-06-24 12:09:30 Images from the original [...] done in 2 weeks time. Orders placed. [facility] 2023-06-23 07:45:28 Last Refilled: Disp Refills Start End CELSO PREGABALIN 50 mg capsule 90 capsule 0 03/02/2023 -- No Sig: TAKE ONE (1) CAPSULE(S) BY MOUTH AT BEDTIME. Sent to pharmacy as: pregabalin 50 mg capsule (LYRICA) Class: eRX Notes to Pharmacy: Sending Erx refill request Order: [id number] Date/Time Signed: 03/02/2023 13:02 E-Prescribing Status: Receipt [...] [facility] 07/15/22 Office Visit Brian Irsael MD Ang-Db [facility] 06/08/22 Office [...] authorizing provider and meeting all other requirements UTIVE CHEF ASSISTANT Martha Espinosa RN [facility] 2023-06-22 11:00:00 Images from the original note were not included. Venipuncture collection performed by clean technique on the left anticubitus. Total of 1 attempts were made. Slight pressure and a bandage/dressing were applied to the site(s). The patient experienced no complications. The following specimens were processed according to instructions and sent to [facility] laboratories per lab order on 06/22/2023 : LT BLUE SST 1 RED LAV 1 PPT DK GREEN (LiHep) DK GREEN (SodH) DERAS DK BLUE (K2) DK BLUE (S) ACD Blood Culture NIPT/NTD Dr early orders only UTIVE CHEF ASSISTANT [facility] 2023-06-22 11:00:00 Labs dated 06/22/2023 [...] done in 2 weeks time. Orders placed. [facility] 2023-06-22 11:00:00 Addended by: JAMSHID EARLY on: 06/22/2023 07:48 PM Modules accepted: Orders [facility] 2023-03-22 15:58:52 Formatting of this n ote might be different from the original. Patient seen in office by provider 03/08/2023. Esther Oconnor RN [facility] 2023-03-10 07:57:23 Formatting of this n ote might be different from the original. Received POC from [facility] requesting Provider signature. Placed in Provider box. Amrita Soto [facility] 2023-02-28 10:55:41 Formatting of this n [...] Israel MD Last refill: 01/28/2023 Rx #: [id number] Controlled Substance Failed 02/28/2023 10:40 AM Protocol [...] Israel MD Last refill: 11/12/2022 Rx #: [id number] Controlled Substance Failed 02/28/2023 10:40 AM Protocol Details Valid encounter within last 3 months Pain agreement on file This refill cannot be delegated To be filled at: [facility] [address] AT [place] [address] Recent Visits Date Type [...] meeting all other requirements Arcelia Dumont LVN [facility] 2023-02-22 12:01:24 Formatting of this n ote is different from the original. TRANSITIONAL CARE MANAGEMENT ASSESSMENT 02/22/2023 Ivett Bran [id number] Ivett Bran is a 77 year old /White female was admitted on 02/20/23 to [facility]. She was discharged on 02/21/23 with discharge disposition of HR- Routine Discharge. Admitting Physician: Sam Meredith Discharge Diagnosis: Altered mental status-patient with altered mental status 2. Osteoarthritis 3. Pelvic wounds; No linked episodes TCM Tkz-cahp-aj-face outreach documentation: Discharge Assessment Chart Assessed: 02/22/23 [...] Phone 03/08/2023 4:20 PM Brian Israel MD [facility] [phone] 03/21/2023 10:40 AM Brian Israel MD [facility] [phone] 04/06/2023 1:30 PM Jamshid Early MD [facility] [place] [phone] 05/23/2023 10:30 AM Erick Larios MD [facility] [phone] 06/22/2023 10:00 AM Jamshid Early MD [facility] [phone] 12/26/2023 10:00 AM 1, Adc Lab [facility] [phone] 12/29/2023 11:00 AM Xenia Lomeli MD [facility] Hematology-Oncology [facility] [phone] Alda Morrison RN [facility] 2023-02-21 17:09:24 Formatting of this n [...] new skin breakdown 02/21/2023 1709 by Vanessa Raimrez RN Outcome: Adequate for discharge 02/21/2023 1632 by Vanessa Ramirez RN Outcome: Progressing as expected Vanessa Ramirez RN [facility] 2023-02-21 16:32:28 Formatting of this n [...] new skin breakdown Outcome: Progressing as expected [facility] 2023-02-21 06:16:30 Formatting of this n ote [...] Outcome: Progressing as expected Germaine Olson RN [facility] 2023-02-20 23:36:04 Formatting of this n ote might be different from the original. Report given to CHRISSY Dorado. Patient to be admitted to 2221. Pt agree with POC and no questions at this time. Uri Godoy RN [facility] 2023-02-20 20:16:48 Formatting of this n ote might be different from the original. [facility] brought the pt in after being [...] upon arrival to ED Humaira Walton RN [facility] 2023-02-20 20:10:00 Formatting of this n [...] hospitalization AdmissionCare documentation entered by: Ramírez Culp [facility], 27th edition, Copyright [address] [facility] [facility] All Rights Reserved. [id number]:31-05:00 [facility] EMERGENCY PHYSICIAN STAFF [facility] 2023-02-18 17:24:55 Formatting of this n ote might be different from the original. Spoke with Kristy from [facility] and gave a verbal order: Pt is to continue with 4-layer compression dressings bilaterally Change dressings every 3 days Vascular studies were previously ordered and scheduled for 02/22/23 Left VM for pt on her cell to call the office and schedule a f/u appt Roel Hoang APRN, MSN, [facility]- Vascular Surgery LIBRARY MEDIA SPECIALIST-CRITICAL CARE MEDICINE [facility] 2023-02-15 17:29:25 Formatting of this n ote might be different from the original. I sent the RX a couple of weeks ago. Does she already need a refill? Best, Dr. Israel [facility] 2023-02-15 16:26:43 Formatting of this n ote is different from the original. Recent Visits Date Type Provider Dept 01/18/23 Office Visit Brian Israel MD Ang-Db [facility] 12/09/22 Office Visit Brian Israel MD [facility] 09/28/22 Office Visit Brian sIrael MD Ang-Db [facility] 08/31/22 Office [...] NEEDED FOR PAIN. T Dara Delgado MA [facility] 2023-02-11 13:04:27 Formatting of this n ote might be different from the original. I do not have a good alternative at this time. She may just have to increase her insulin if she used to be on it and stopped. I recommend contacting endocrine or discussing at next visit as they may know of an assistance program. [facility] 2023-02-11 10:04:00 Formatting of this n ote might be different from the original. Pt says she cant get ozempic want to know what alternative is or should she take more of the other meds she has Milena Rubio [facility] 2023-02-10 14:47:03 Formatting of this n ote might be different from the original. Ivett Bran is a 77 year old female pt Kristy from [employer] [employer] is calling to see if they can order the 4 layer compression wrap for the pt. Please put the directions on when to take them on and off [phone] Fax.[phone] Juli Shipley V [facility] 2023-02-09 09:44:10 Formatting of this n ote might be different from the original. Ivett Bran is a 77 year old female Patients caregiver is calling to schedule Vascular US. Please assist. Contact at [phone] Livia Acuna [facility] 2023-02-03 09:28:31 Formatting of this n [...] 01/18/23 Office Visit Brian Israel MD Ang-Db [facility] Fam Med 12/09/22 Office Visit Brian Israel MD Ang-Db [facility] Fam Med 09/28/22 Office Visit Brian Israel [...] meeting all other requirements Khadijah Gomez MA [facility] 2023-01-28 12:55:28 Formatting of this n ote is different from the original. Images from the original note were not included. Last Refilled: 12/23/22 Notes: [facility] [place], [place] - [address] [place] [address] Recent Visits Date [...] Israel MD Last refill: 12/23/2022 Rx #: [id number] Controlled Substance Failed 01/28/2023 11:39 AM Protocol Details Valid encounter within last 3 months Pain agreement on file This refill cannot be delegated To be filled at: [facility] [address] AT [address] Sirena Galaviz MA [facility] 2023-01-21 14:46:18 Formatting of this n ote might be different from the original. Received Home Health Certification and Plan of Care. Placed in the providers box. Ochoa Mcguire [facility] 2022-03-16 07:13:04 Images from the original note [...] Israel MD Last refill: 03/15/2022 Rx #: [id number] Pharmacy comment: Script Clarification:THE SENSOR SUPPOSED TO BE CHANGED EVERY 14 DAYS, PLEASE CLARIFY. To be filled at: [facility] [id number] [place] [address] Arcelia Dumont LVN [facility] [employer] 2018-04-26 15:50:54 Rx sent in. Let patient know. [facility] [employer]
--- NOTE | 2024-11-21 13:08 | RAD REPORT ---
EXAM: Chest Single View HISTORY: 78 years Female PICC assessment COMPARISON: 11/07/2024 FINDINGS: LUNGS/PLEURA: Prominence of the pulmonary interstitium with improvement compared with 11/07/2024. Possi ble small left pleural effusion. CARDIAC/MEDIASTINUM: The cardiac silhouette is within normal limits. UPPER ABDOMEN: No significant abnormality. BONES: No acute abnormality. ACDF in the cervical spine. LINES/TUBES/OTHER: No PICC present. A vascular line is seen at the left upper extremity IMPRESSION: No PICC identified. Peripheral vascular line is partially imaged at the left upper extremity at the l evel of the midhumerus. Interstitial edema has improved from prior.
[2024-11-21] MEDS ORDERED: ALTEPLASE 2 MG/VIAL IV ONE (13:10)
--- NOTE | 2024-11-21 14:43 | ER ---
Nurse's Notes [facility] Name: Stephany Bran Age: 78 yrs Sex: Female : 1945 Arrival Date: 11/21/2024 Time: 11:59 Bed 22 Private MD: Diagnosis: Clotted peripheral catheter, now resolved Presentation: 11/21 12:19 Chief complaint: Patient states: LUE PICC line clogged up fully since last night. No ll1 pain or fever. States dressing itches. Coronavirus screen: Client denies travel out of the [place] in the last 14 days. At this time, the client does not indicate any symptoms associated with coronavirus-19. Ebola Screen: Patient denies travel to an Ebola-affected area in the 21 days before illness onset. Initial Sepsis Screen: Does the patient meet any 2 criteria? No. Patient's initial sepsis screen is negative. Does the patient have a suspected source of infection? No. Patient's initial sepsis screen is negative. Risk Assessment: Do you want to hurt yourself or someone else? Patient reports no desire to harm self or others. Onset of symptoms was November 20, 2024. 12:19 Method Of Arrival: Ambulatory ll1 12:19 Acuity: NGA 4 ll1 Triage Assessment: 12:21 General: Appears in no apparent distress. Behavior is calm, cooperative, appropriate ll1 for age, Reports LUE PICC line clogged. Pain: Denies pain. Historical: - Allergies: 12:21 Ciprofloxacin; ll1 12:21 Demerol; ll1 12:21 Erythromycin; ll1 12:21 Losartan; ll1 12:21 MACROLIDES; ll1 12:21 Metformin HCl; ll1 12:21 metronidazole; ll1 12:21 Myacin family; ll1 12:21 PENICILLINS; ll1 12:21 pentoxifylline; ll1 12:21 Adhesives; ll1 - PMHx: 12:21 Atrial fibrillation; diabetes mellitus; Glaucoma; Hypothyroidism; lymphedema ll1 (hystertectomy); neuropathy; osteoarthritis; Osteoporosis; PVD (hystertectomy); - PSHx: 12:21 hystertectomy; ll1 - Immunization history:: Adult Immunizations up to date. - Infectious Disease History:: Denies. - Social history:: Smoking status: Patient denies any tobacco usage or history of. Screenin:42 [facility] ED Fall Risk Assessment (Adult) History of falling in the last 3 months, ll1 including since admission No falls in past 3 months (0 pts) Confusion or Disorientation No (0 pts) Intoxicated or Sedated No (0 pts) Impaired Gait No (0 pts) Mobility Assist Device Used Yes (1 pt) Altered Elimination No (0 pt) Score/Fall Risk Level 0 - 2 = Low Risk Maintained a safe environment, Hourly rounding (assess needs \T\ fall precautionary measures) done. Abuse screen: Denies threats or abuse. Nutritional screening: No deficits noted. Tuberculosis screening: No symptoms or risk factors identified. Assessment: 12:30 General: Appears in no apparent distress. Behavior is calm, cooperative. Pain: kj2 Complains of pain in left arm Pain currently is 5 out of 10 on a pain scale. Neuro: Level of Consciousness is awake, alert, obeys commands, Oriented to person, place, time, situation. Cardiovascular: Patient's skin is warm and dry. Respiratory: Airway is patent. GI: No signs and/or symptoms were reported involving the gastrointestinal system. : No signs and/or symptoms were reported regarding the genitourinary system. 13:30 Reassessment: Patient appears in no apparent distress at this time. Patient and/or kj2 family updated on plan of care and expected duration. Pain level reassessed. Patient is alert, oriented x 3, equal unlabored respirations, skin warm/dry/pink. 14:32 Reassessment: site flushing easily. Wants dressing change now. ll1 14:54 Reassessment: No changes from previously documented assessment. Patient and/or family ll1 updated on plan of care and expected duration. Pain level reassessed. Patient is alert, oriented x 3, equal unlabored respirations, skin warm/dry/pink. Vital Signs: 12:19 BP 145 / 86; Pulse 65; Resp 16; Temp 97.9; Pulse Ox 96% ; Weight 109.32 kg; Height 5 ll1 ft. 7 in. ; Pain 0/10; 14:54 BP 143 / 59; Pulse 60; Resp 16; Pulse Ox 96% on R/A; Pain 0/10; ll1 12:19 Body Mass Index 37.75 (109.32 kg, 170.18 cm) ll1 12:19 Pain Scale: Adult ll1 14:54 Pain Scale: Adult ll1 ED Course: 12:02 Patient arrived in ED. mr 12:05 Maria Elena Rock MD is Attending Physician. sp3 12:21 Triage completed. ll1 12:27 Arm band placed on Patient placed in an exam room, on a stretcher. ll1 12:30 Leigh Colon, RN is Primary Nurse. kj2 13:05 CXR XRAY In Process Unspecified. EDMS 14:41 No provider procedures requiring assistance completed. Patient did not have IV access ll1 during this emergency room visit. Dressings: LUE PICC line dressing changed using sterile technique. Tolerated well, already less itchy. 14:42 Patient has correct armband on for positive identification. Provided Education on: ER ll1 procedures and process. Administered Medications: 13:16 Drug: Cathflo Activase IV Thrombolytics 2 mg IV Thrombolytics once; into each catheter kj2 lumen, may repeat once Route: IV Thrombolytics; 14:32 Follow up: Response: No adverse reaction ll1 14:54 Follow up: Response: No adverse reaction ll1 Medication: 14:42 VIS not applicable for this client. ll1 Outcome: 14:43 Discharge ordered by . sp3 14:54 Patient left the ED. ll1 14:54 Discharged to home via wheelchair, ll1 14:54 Condition: stable 14:54 Discharge instructions given to patient, data officer, Instructed on discharge instructions, follow up and referral plans. Demonstrated understanding of instructions, follow-up care, Signatures: Dispatcher [employer] EDOK Jenny Garrison, Reg Reg nEoc Schultz, RN RN ll1 Maria Elena Rock MD MD sp3 Leigh Colon RN RN kj2
--- NOTE | 2024-11-21 14:43 | EDPHYS ---
Physician Documentation [facility] Name: Stephany Bran Age: 78 yrs Sex: Female : 1945 Arrival Date: 11/21/2024 Time: 11:59 Bed 22 Private MD: ED Physician Maria Elena Rock HPI: 11/21 13:40 This 78 yrs old Female presents to ER via Ambulatory with complaints of PICC line sp3 problem. 13:40 78-year-old female with PMH above who was recently admitted for UTI and cellulitis and sp3 discharged with home antibiotics presents with a left midline that is no longer functioning. She denies any trauma or bleeding. No other symptoms reported. ROS otherwise negative.. Historical: - Allergies: 12:21 Ciprofloxacin; ll1 12:21 Demerol; ll1 12:21 Erythromycin; ll1 12:21 Losartan; ll1 12:21 MACROLIDES; ll1 12:21 Metformin HCl; ll1 12:21 metronidazole; ll1 12:21 Myacin family; ll1 12:21 PENICILLINS; ll1 12:21 pentoxifylline; ll1 12:21 Adhesives; ll1 - PMHx: 12:21 Atrial fibrillation; diabetes mellitus; Glaucoma; Hypothyroidism; lymphedema ll1 (hystertectomy); neuropathy; osteoarthritis; Osteoporosis; PVD (hystertectomy); - PSHx: 12:21 hystertectomy; ll1 - Immunization history:: Adult Immunizations up to date. - Infectious Disease History:: Denies. - Social history:: Smoking status: Patient denies any tobacco usage or history of. ROS: 13:40 Constitutional: Negative for fever, chills, and weight loss, Eyes: Negative for injury, sp3 pain, redness, and discharge, ENT: Negative for injury, pain, and discharge, Neck: Negative for injury, pain, and swelling, Cardiovascular: Negative for chest pain, palpitations, and edema, Respiratory: Negative for shortness of breath, cough, wheezing, and pleuritic chest pain, Abdomen/GI: Negative for abdominal pain, nausea, vomiting, diarrhea, and constipation, Back: Negative for injury and pain, : Negative for injury, bleeding, discharge, and swelling, Skin: Negative for injury, rash, and discoloration, Neuro: Negative for headache, weakness, numbness, tingling, and seizure, Psych: Negative for depression, anxiety, suicide ideation, homicidal ideation, and hallucinations, Allergy/Immunology: Negative for hives, rash, and allergies, Endocrine: Negative for neck swelling, polydipsia, polyuria, polyphagia, and marked weight changes, 13:40 All other systems are negative, Exam: 13:40 Constitutional: This is a well developed, well nourished patient who is awake, alert, sp3 and in no acute distress. Head/Face: Normocephalic, atraumatic. Eyes: Pupils equal round and reactive to light, extra-ocular motions intact. Lids and lashes normal. Conjunctiva and sclera are non-icteric and not injected. Cornea within normal limits. Periorbital areas with no swelling, redness, or edema. Neck: Trachea midline, no thyromegaly or masses palpated, and no cervical lymphadenopathy. Supple, full range of motion without nuchal rigidity, or vertebral point tenderness. No Meningismus. Chest/axilla: Normal chest wall appearance and motion. Nontender with no deformity. No lesions are appreciated. Cardiovascular: Regular rate and rhythm with a normal S1 and S2. No gallops, murmurs, or rubs. Normal PMI, no JVD. No pulse deficits. Respiratory: Lungs have equal breath sounds bilaterally, clear to auscultation and percussion. No rales, rhonchi or wheezes noted. No increased work of breathing, no retractions or nasal flaring. Abdomen/GI: Soft, non-tender, with normal bowel sounds. No distension or tympany. No guarding or rebound. No evidence of tenderness throughout. Skin: Warm, dry with normal turgor. Normal color with no rashes, no lesions, and no evidence of cellulitis. Neuro: Awake and alert, GCS 15, oriented to person, place, time, and situation. Cranial nerves II-XII grossly intact. Motor strength 5/5 in all extremities. Sensory grossly intact. Cerebellar exam normal. Normal gait. Psych: Awake, alert, with orientation to person, place and time. Behavior, mood, and affect are within normal limits. 13:40 Musculoskeletal/extremity: Midline in place on the left upper extremity without the ability to flush. Distal neurovascular exam is normal on that upper extremity.. Vital Signs: 12:19 BP 145 / 86; Pulse 65; Resp 16; Temp 97.9; Pulse Ox 96% ; Weight 109.32 kg; Height 5 ll1 ft. 7 in. ; Pain 0/10; 14:54 BP 143 / 59; Pulse 60; Resp 16; Pulse Ox 96% on R/A; Pain 0/10; ll1 12:19 Body Mass Index 37.75 (109.32 kg, 170.18 cm) ll1 12:19 Pain Scale: Adult ll1 14:54 Pain Scale: Adult ll1 MDM: 12:48 Medical Screening Exam initiated sp3 13:41 Data reviewed: vital signs, nurses notes, radiologic studies. ED course: 78-year-old sp3 female with a complication to her home IV access. Initially patient was thought to have a PICC line as reported by her. However x-ray demonstrates peripheral line only. Cathflo introduced and we will await potential functional status.. 14:41 ED course: Procedure successful. We will safely discharge patient home at this time.. sp3 11/21 12:39 Order name: CXR XRAY; Complete Time: 13:13 sp3 Administered Medications: 13:16 Drug: Cathflo Activase IV Thrombolytics 2 mg IV Thrombolytics once; into each catheter kj2 lumen, may repeat once Route: IV Thrombolytics; 14:32 Follow up: Response: No adverse reaction ll1 14:54 Follow up: Response: No adverse reaction ll1 Disposition Summary: 11/21/24 14:43 Discharge Ordered Notes: Location: Home sp3 Condition: Stable sp3 Diagnosis - Clotted peripheral catheter, now resolved sp3 Followup: sp3 - With: Private Physician - When: Upon discharge from the Emergency Department - Reason: Continuance of care Discharge Instructions: - Discharge Summary Sheet sp3 - Tunneled Central Venous Catheter Flushing Guide sp3 Forms: - Medication Reconciliation Form sp3 - Antibiotic Education sp3 - Prescription Opioid Use sp3 - Patient Portal Instructions sp3 - Leadership Thank You Letter sp3 Signatures: Dispatcher [employer] Enoc Ratliff, RN RN ll1 Maria Elena Rock MD MD sp3 Leigh Colon RN RN kj2
[2024-11-21 15:08] VITALS: BP 145/86; TEMP 97.9; O2SAT 96
== END 2024-11-21 14:54 | disposition home or self-care (01) ==
LOC: ER 11:59
DX: T82.594A Other mechanical complication of infusion catheter, initial encounter (principal)
CPT/HCPCS: 82947; 71045; J2997